=== PATIENT | female | born 1930 | race American Indian/Alaskan Native ===

== ENCOUNTER 2019-06-28 13:35 | Emergency (ER) | payer MEDICARE ==
[~2019-06-28] VITALS: Ht 165.1 cm; Wt 56.2 kg
[2019-06-28] MEDS ORDERED: NORCO 7.5-3251 EACH PO (13:51)
[2019-06-28] MEDS ORDERED: LASIX20 MG PO (13:51)
[2019-06-28] MEDS ORDERED: IRON18 MG PO (13:51)
[2019-06-28] MEDS ORDERED: BUDESONIDE0.5 MG/2 M INH (13:51)
[2019-06-28] MEDS ORDERED: CARVEDILOL6.25 MG PO (13:51)
[2019-06-28] MEDS ORDERED: BROVANA15 MCG/2 M INH (13:51)
[2019-06-28] MEDS ORDERED: MYRBETRIQ25 MG PO (13:52)
[2019-06-28] MEDS ORDERED: PANTOPRAZOLE SO40 MG PO (13:52)
== END 2019-06-28 16:09 | disposition home or self-care (01) ==
LOC: ED 13:35
DX: S09.90XA Unspecified injury of head, initial encounter (principal); S40.012A Contusion of left shoulder, initial encounter; I50.9 Heart failure, unspecified; Z88.2 Allergy status to sulfonamides; Z88.5 Allergy status to narcotic agent; Z79.899 Other long term (current) drug therapy; W18.30XA Fall on same level, unspecified, initial encounter
CPT/HCPCS: 70450; 72125; 73030; 99284-25

== ENCOUNTER 2019-12-19 16:45 | Emergency (ER) | payer MEDICARE, OTHER ==
[~2019-12-19] VITALS: Ht 165.1 cm; Wt 56.2 kg
[~2019-12-19 16:45] MED LIST: BROVANA15 MCG/2 M INH; BUDESONIDE0.5 MG/2 M INH; CARVEDILOL6.25 MG PO; IRON18 MG PO; LASIX20 MG PO; MYRBETRIQ25 MG PO; NORCO 7.5-3251 EACH PO; PANTOPRAZOLE SO40 MG PO
== END 2019-12-19 20:05 | disposition home or self-care (01) ==
LOC: ED 16:45
DX: J44.9 Chronic obstructive pulmonary disease, unspecified (principal); D64.9 Anemia, unspecified; I50.9 Heart failure, unspecified; Z88.2 Allergy status to sulfonamides; Z88.5 Allergy status to narcotic agent; Z79.899 Other long term (current) drug therapy
CPT/HCPCS: 71045; 80053; 81001; 85025; 99285-25

== ENCOUNTER 2019-12-26 12:14 | Emergency (ER) | payer MEDICARE, OTHER ==
[~2019-12-26] VITALS: Ht 165.1 cm; Wt 56.2 kg
== END 2019-12-26 16:10 | disposition home or self-care (01) ==
LOC: ED 12:14
DX: S81.811A Laceration without foreign body, right lower leg, initial encounter (principal); M54.5 Low back pain; D64.9 Anemia, unspecified; J44.9 Chronic obstructive pulmonary disease, unspecified; I50.9 Heart failure, unspecified; Z88.2 Allergy status to sulfonamides; Z79.899 Other long term (current) drug therapy; W18.30XA Fall on same level, unspecified, initial encounter
CPT/HCPCS: 70450; 71045; 80053; 84484; 85025; 90471; 90715; 96360; 96361; 99284-25; J7040

== ENCOUNTER 2020-03-14 14:48 | Emergency (ER) | payer MEDICARE, OTHER ==
[~2020-03-14] VITALS: Ht 165.1 cm; Wt 56.2 kg
--- OUTSIDE RECORDS SUMMARY | ~2020-03-14 | XMS | Encounter Summary ---
Demographics + + + | Address | [address] | | | [place] [address] | + + + | Home Phone | | + + + | Preferred Language | Unknown | + + + | Marital Status | | + + + | Druze Affiliation | Unknown | + + + | Race | Unknown | + + + | Ethnic Group | Unknown | + + + Author + + + | Author | [facility] | | | and [place] | + + + | Organization | [facility] | | | and [place] | + + + | Address | Unknown | + + + | Phone | Unavailable | + + + Support + + +---------+ + | Name | Relationship | Address | Phone | + + +---------+ + | Yadiel Argueta | ECON | Unknown | | + + +---------+ + | Pee Perrin | ECON | Unknown | | + + +---------+ + | Laylajanelle Argueta | ECON | Unknown | | + + +---------+ + Care Team Providers + +------+ + | Care Process Supervisor Name | Role | Phone | + +------+ + | Candido Link | PCP | | | MD | | | + +------+ + Reason for Visit +--------+ + | Reason | Comments | +--------+ + | Forms | | +--------+ + Encounter Details +--------+ + + + + | Date | Type | Department | Care Team | Description | +--------+ + + + + | 07/05/ | Telephone | [facility] | Nikolay, | Forms | | 2019 | | [address] | MD Candido | | | | | [facility] | [address] [place] [address] | | | | | [place] [address] | [place] [address] | | | | | [phone] | [phone] | | | | | | | | +--------+ + + + + Social History + + + +--------+ + | Tobacco Use | Types | Packs/Day | Years | Date | | | | | Used | | + + + +--------+ + | Former Smoker | Cigarettes | | | 1945 - 1968 | + + + +--------+ + + +---+---+---+ | Smokeless Tobacco: | | | | | Never Used | | | | + +---+---+---+ + + +---------+ + | Alcohol Use | Drinks/Week | oz/Week | Comments | + + +---------+ + | Never | | | | + + +---------+ + + + + + | Alcohol Habits | Answer | Date Recorded | + + + + | How often do you have a drink containing | Never | 05/31/2019 | | alcohol? | | | + + + + | How many drinks containing alcohol do you | Not asked | | | have on a typical day when you are | | | | drinking? | | | + + + + | How often do you have six or more drinks on | Not asked | | | one occasion? | | | + + + + + + + | Sex Assigned at | Date Recorded | | | | + + + | Not on file | | + + + + + + + | Job Start Date | Occupation | Industry | + + + + | Not on file | Not on file | Not on file | + + + + + + + + | Travel History | Travel Start | Travel End | + + + + + + | No recent travel history available. | + + documented as of this encounter Plan of Treatment +--------+ + + + + | Date | Type | Specialty | Care Team | Description | +--------+ + + + + | 03/23/ | Office | Anticoagulation | García Harris, | | | 2019 | Visit | | PIPE CHANGER [address] | | | | | | [place] | | | | | | [address] | | | | | | | | +--------+ + + + + | 04/11/ | Appointment | Radiology | Shawn Michael | | | 2019 | | | MD [address] | | | | | | [address] [place] | | | | | | [place] [address] | | | | | | [phone] | | | | | | | | +--------+ + + + + | 04/13/ | Office | Cardiology | Shawn Michael | | 2019 | Visit | | MD [address] | | | | | | [address] [place] | | | | | | [place] [address] | | | | | | [phone] | | | | | | | | +--------+ + + + + documented as of this encounter Visit Diagnoses Not on filedocumented in this encounter Additional Health Concerns + + + + | Infection | Noted Time | Resolved Time | + + + + | Methicillin-resistant Staphylococcus aureus | 06/08/2019 9:39 AM | | | | PDT | | + + + + documented as of this encounter"
--- OUTSIDE RECORDS SUMMARY | ~2020-03-14 | XMS | Encounter Summary ---
Demographics + + + | Address | [address] | | | [place] [address] | + + + | Home Phone | | + + + | Preferred Language | Unknown | + + + | Marital Status | | + + + | Scientologist Affiliation | Unknown | + + + | Race | Unknown | + + + | Ethnic Group | Unknown | + + + Author + + + | Author | [facility] | | | and [place] | + + + | Organization | [facility] | | [...] | | + + +---------+ + | Layla Argueta | ECON | Unknown | | + + +---------+ + Care Team Providers + +------+ + | Care Tank Setter Name | Role | Phone | + +------+ + | Candido Link | PCP | | | MD | | | + +------+ + Reason for Visit Auth/Cert +--------+--------+ + + + + | Status | Reason | Specialty | Diagnoses / | Referred By | Referred To | | | | | Procedures | Contact | Contact | +--------+--------+ + + + + | | | | | | | +--------+--------+ + + + + Encounter Details +--------+ + + + + | Date | Type | Department | Care Team | Description | +--------+ + + + + | 10/19/ | Home Care | [facility] [place] | Raheem Goins T, | PT REPEAT VISIT | | 2020 | Visit | [place] [address] | [facility] DRILL OPERATOR [address] | | | | | [place], [place] | [place] | | | | | [address] | [address] | | | | | [phone] | | | +--------+ + + + [...] + + documented as of this encounter Last Filed Vital Signs + + + + + | Vital Sign | Reading | Time Taken | Comments | + + + + + | Blood Pressure | 122/86 | 10/19/2019 2:45 PM | | | | | PST | | + + + + + | Pulse | 90 | 10/19/2019 2:45 PM | | | | | PST | | + + + + + | Temperature | 36.8 C (98.2 F) | 10/19/2019 2:45 PM | | | | | PST | | + + + + + | Respiratory Rate | - | - | | + + + + + | Oxygen Saturation | 96% | 10/19/2019 2:45 PM | | | | | PST | | + + + + + | Inhaled Oxygen | - | - | | | Concentration | | | | + + + + + | Weight | - | - | | + + + + + | Height | - | - | | + + + + + | Body Mass Index | - | - | | + + + + + documented in this encounter Plan of Treatment +--------+ + + + + | Date | Type | Specialty | Care Team | Description | +--------+ + + + + | 03/23/ | Office | Anticoagulation | García Harris, | | | 2019 | Visit | | [place] | | | | | | [place] | | | | | | [address] | | | | | | | | +--------+ + + + + | 04/11/ | Appointment | Radiology | Shawn Michael | | 2019 | | | MD Marcelino [address] | | | | | | [address] | | | | | | [place] [address] | | | | | | [phone] | | | | | | | | +--------+ + + + + | 04/13/ | Office | Cardiology | Shawn Michael | | | 2020 | Visit | | MD Marcelino [address] | | | | | | [address] | | | | | | [place] [address] | | | | | | [phone] | | | | | | | [...] + + documented as of this encounter Home Health Visit - Care Plan + + | Visit Type - PT - REPEAT VISIT | | Discipline - Physical Therapy | + + + + +--------+--------+ + + | Problem | Description | Start | Status | Goals | Interventio | | | | Date | | | ns | + + +--------+--------+ + + | HH PT IMPAIRED | Impaired gait | | | 1 goal | 1 goal | | GAIT Disciplines: | | 08/31/ | Active | linked to | interventio | | Physical Therapy | | 2019 | | scheduled/d | n | | | | | | ocumented | scheduled/d | | | | | | interventio | ocumented | | | | | | n | in this | | | | | | | visit | + + +--------+--------+ + + | HH PT IMPAIRED | Impaired transfers | | | 1 goal | 1 goal | | TRANSFERS | | 08/31/ | Active | linked to | interventio | | Disciplines: | | 2019 | | scheduled/d | n | | Physical Therapy | | | | ocumented | scheduled/d | | | | | | interventio | ocumented | | | | | | n | in this | | | | | | | visit | + + +--------+--------+ + + | HH PULSE OXIMETRY | Oximetry | | | 1 goal | 1 goal | | Disciplines: | | 08/31/ | Active | linked to | interventio | | Physical Therapy | | 2019 | | scheduled/d | n | | | | | | ocumented | scheduled/d | | | | | | interventio | ocumented | | | | | | n | in this | | | | | | | visit | + + +--------+--------+ + + | HH SHARED FALLS | Falls | | | 1 goal | 1 goal | | Disciplines: | | 08/31/ | Active | linked to | interventio | | Physical Therapy | | 2019 | | scheduled/d | n | | | | | | ocumented | scheduled/d | | | | | | interventio | ocumented | | | | | | n | in this | | | | | | | visit | + + +--------+--------+ + + + + +--------+-------+ + | Goal | Associated Problem | Outcom | Goal | Visit Notes | | | | e | Met? | | + + +--------+-------+ + | HH PT GAIT/STAIRS | HH PT IMPAIRED | | No | | | Description: The | GAIT | Ongoin | | | | patient will | | g, | | | | ambulate 500+ feet | | progre | | | | using 4-wheeled | | ssing | | | | walker with | | | | | | supervision. | | | | | | OUTCOMES: The | | | | | | patient will be able | | | | | | to safely ambulate | | | | | | to/from community | | | | | | appointments. | | | | | + + +--------+-------+ + | HH PT TRANSFERS | HH PT IMPAIRED | | No | | | Description: The | TRANSFERS | Ongoin | | | | patient will perform | | g, | | | | independent | | progre | | | | transfers for all | | ssing | | | | household surfaces | | | | | | using rolling | | | | | | walker.. Outcomes: | | | | | | The patient will | | | | | | reach maximal | | | | | | independence and | | | | | | safety with | | | | | | transfers to/from | | | | | | the all necessary | | | | | | household surfaces. | | | | | + + +--------+-------+ + | Pulse oximetry | HH PULSE OXIMETRY | | No | | | parameters | | | | | | Description: | | | | | | Notify MD if oxygen | | | | | | saturation is less | | | | | | than 90%. | | | | | + + +--------+-------+ + | HH FALL PREVENTION | HH SHARED FALLS | | No | | | UNDERSTANDING | | Ongoin | | | | Description: The | | g, | | | | patient and/or | | progre | | | | caregiver will | | ssing | | | | verbalize | | | | | | understanding of | | | | | | fall prevention | | | | | | strategies. | | | | | + + +--------+-------+ + + + +--------+--------+ + | Intervention | Associated | Status | Varian | Visit Notes | | | Problem/Goal | | ce | | + + +--------+--------+ + | Pt gait training | Problem: HH PT | | | Therapist educated pt | | Description: | IMPAIRED GAITGoal: | Comple | | on appropriate AD use | | Evaluate and | HH PT GAIT/STAIRS | yoel | | given noted deficits and | | instruct patient | | | | impairments. Instructed | | and/or caregiver in | | | | pt with use of 4WW for | | gait training using | | | | 200 feet on even | | 4-wheeled walker no | | | | surfaces inside of home, | | weight bearing | | | | completed task with | | restrictions. | | | | supervision. Therapist | | | | | | gave VC for improved | | | | | | postural mechanics and | | | | | | normalized loading | | | | | | mechanics through ankles | | | | | | and hips. | + + +--------+--------+ + | PT transfer | Problem: HH PT | | | Patient instructed in | | training | IMPAIRED | Comple | | sit<>stand transfers | | Description: | TRANSFERSGoal: HH PT | yoel | | from upright recliner | | Evaluate and | TRANSFERS | | | using bilateral UE for | | instruct patient | | | | increased leverage. | | and/or caregiver in | | | | Verbal cueing provided | | safe transfers using | | | | for proper set up and | | appropriate body | | | | technique including | | mechanics and | | | | scooting forward on | | necessary equipment. | | | | surface, foot placement | | | | | | slightly behind knees, | | | | | | atleast one hand on | | | | | | surface for safety and | | | | | | improved leverage as | | | | | | well as anterior weight | | | | | | shifting of trunk for | | | | | | improved mechanics and | | | | | | avoiding retropulsion | | | | | | upon standing. When | | | | | | sitting patient also | | | | | | cued to keep AD close | | | | | | and not to sit until pt. | | | | | | feels surface on back | | | | | | of legs. Patient | | | | | | performed tranfers with | | | | | | increased effort, | | | | | | modified independence. | + + +--------+--------+ + | HH PULSE OXIMETRY | Problem: HH PULSE | | | 02 saturations | | Description: | OXIMETRYGoal: Pulse | Comple | | maintained above 92% | | Assess oxygen | oximetry parameters | yoel | | throughout session. 2 | | saturation via pulse | | | | min walk test. | | oximetry: Frequency | | | | | | PRN, Reason SOB. | | | | | | Notify physician if | | | | | | saturation level is | | | | | | less than 90%. | | | | | + + +--------+--------+ + | Instruct in Fall | Problem: HH SHARED | | | PT educated pt on | | Prevention | FALLSGoal: HH FALL | Comple | | general fall prevention | | Description: | PREVENTION | yoel | | measures including: | | Instruct the patient | UNDERSTANDING | | | taking extra time after | | and/or caregiver in | | | | changes in position to | | fall prevention | | | | ensure no | | strategies. | | | | lightheadedness, | | | | | | adequate lighting at | | | | | | night for tolieting and | | | | | | transfers, consistent | | | | | | and appropriate AD use, | | | | | | use of appropriate | | | | | | footwear, requesting A | | | | | | as needed, and general | | | | | | environmental changes to | | | | | | clear pathways, remove | | | | | | throw rugs and keep | | | | | | obstacles out of | | | | | | walkways. | + + +--------+--------+ + documented in this encounter"
--- OUTSIDE RECORDS SUMMARY | ~2020-03-14 | XMS | Encounter Summary ---
Demographics + + + | Address | [address] | | | [place] [address] | + + + | Home Phone | | + + + | Preferred Language | Unknown | + + + | Marital Status | | + + + | Denominational Affiliation | Unknown | + + + | Race | Unknown | + + + | Ethnic Group | Unknown | + + + Author + + + | Author | [facility] | | | and [place] | + + + | Organization | [facility] | | | and [...] Team Providers + +------+ + | Care Retail Advertising Executive Name | Role | Phone | + +------+ + | Candido Link | PCP | | | MD | | | + +------+ + Encounter Details +--------+ + + + + | Date | Type | Department | Care Team | Description | +--------+ + + + + | 09/07/ | Imaging | [facility] | Provider, | | | 2019 | Exam | [facility] | MD Alfredo [address] | | | | | [address] | [address] | | | | | [address] | [place] [address] | | | | | [place] [address] | | | | | | [phone] | | | +--------+ + + + + Social History + +-------+ +--------+------+ | Tobacco Use | Types | Packs/Day | Years | Date | | | | | Used | | + +-------+ +--------+------+ | Never Assessed | | | | | + +-------+ +--------+------+ + + + | Sex Assigned at [...] | | 2019 | Visit | | FABRICATION TECHNICIAN [address] | | | | | | [place] | | | | | | [address] | | | | | | | | +--------+ + + + + | 04/11/ | Appointment | Radiology | Shawn Michael | | | 2019 | | | MD [address] | | | | | | [address] [place] | | | | | | [place] [address] | | | | | | [phone] | | | | | | | | +--------+ + + + + | 04/13/ | Office | Cardiology | Shawn Michael | | | 2019 | Visit | | MD [address] | | | | | | [address] [place] | | | | | | [place] [address] | | | | | | [phone] | | | | | | | | +--------+ + + + + documented as of this encounter Procedures + +--------+ + + + | Procedure Name | Priori | Date/Time | Associated Diagnosis | Comments | | | ty | | | | + +--------+ + + + | CT ANGIOGRAM CHEST | Routin | 02/08/2019 | | Results for this | | ABDOMEN PELVIS | e | 3:20 PM | | procedure are in the | | | | PDT | | results section. | + +--------+ + + + documented in this encounter Results CT Angiogram Chest Abdomen Pelvis w Contrast (02/08/2019 3:20 PM PDT) + + | Specimen | + + | | + + + + + | Narrative | Performed At | + + + | External films for comparison only | [facility] | | | | | No results will be in the chart. | | + + + + +---------+ + + | Performing | Address | City/State/Zipcode | Phone Number | | Organization | | | | + +---------+ + + | [facility] | | | | + +---------+ + + documented in this encounter Visit Diagnoses Not on filedocumented in this encounter Additional Health Concerns + + + + | Infection | Noted Time | Resolved Time | + + + + | Methicillin-resistant Staphylococcus aureus | 06/08/2019 9:39 AM | | | | PDT | | + + + + documented as of this encounter"
--- OUTSIDE RECORDS SUMMARY | ~2020-03-14 | XMS | Encounter Summary ---
Demographics + + + | Address | [address] | | | [place] [address] | + + + | Home Phone | | + + + | Preferred Language | Unknown | + + + | Marital Status | | + + + | Religion Affiliation | Unknown | + + + | Race | Unknown | + + + | Ethnic Group | Unknown | + + + Author + + + | Author | [facility] | | | and [place] | + + + | Organization | [facility] | | | and [...] Team Providers + +------+ + | Care Taper Machine Name | Role | Phone | + +------+ + | Candido Link | PCP | | | MD | | | + +------+ + Reason for Visit + + + | Reason | Comments | + + + | Medication Refill | | + + + Encounter Details +--------+--------+ + + + | Date | Type | Department | Care Team | Description | +--------+--------+ + + + | 10/08/ | Refill | [facility] [place] [facility] | Nikolay, | Medication Refill | | 2019 | | MEDICINE [address] | MD Candido | | | | | [facility] | [address] [place] [address] | | | | | [place] [address] | [place] [address] | | | | | [phone] | [phone] | | | | | | | | +--------+--------+ + + + Social History + + [...] | | 2019 | Visit | | PUBLIC OPINION SURVEY TAKER [address] | | | | | | [place] | | | | | | [address] | | | | | | | | +--------+ + + + + | 04/11/ | Appointment | Radiology | Shawn Michael | | | 2019 | | | MD [address] | | | | | | [address] [place] | | | | | | [place] [address] | | | | | | [phone] | | | | | | | | +--------+ + + + + | 04/13/ | Office | Cardiology | Shawn Michael | | | 2019 | Visit | | MD [address] | | | | | | [address] [place] | | | | | | [place] [address] | | | | | | [phone] | | | | | | | [...]
--- OUTSIDE RECORDS SUMMARY | ~2020-03-14 | XMS | Encounter Summary ---
Demographics + + + | Address | [address] | | | [place] [address] | + + + | Home Phone | | + + + | Preferred Language | Unknown | + + + | Marital Status | | + + + | Jewish Affiliation | Unknown | + + + | Race | Unknown | + + + | Ethnic Group | Unknown | + + + Author + + + | Author | [facility] | | | and [place] | + + + | Organization | [facility] | | [...] Team Providers + +------+ + | Care Enterprise Resource Planner Name | Role | Phone | + [...] | +--------+ + + + + | 11/30/ | Home Care | [facility] [place] | Wanda Barbosa, | CASE COMMUNICATION | | 2020 | Visit | [place] [address] | [place] | | | | | [address] [place] | | | | | | [address] | | | | | | [phone] | | | +--------+ + + + [...] [place] | | | | | | [address] | | | | | | | | +--------+ + + + + | 04/11/ | Appointment | Radiology | Shawn Michael | | | 2019 | | | MD Marcelino [address] | | | | | | [address] | | | | | | [place] [address] | | | | | | [phone] | | | | | | | | +--------+ + + + + | 04/13/ | Office | Cardiology | Shawn Michael | | | 2019 | Visit | | MD Marcelino [address] | | | | | | [address] | | | | | | [place] [address] | | | | | | [phone] | | | | | | | [...] PDT | | + + + + | Influenza - flu | 11/18/2019 2:02 AM | 12/02/2019 11:56 AM | | | PST | UTC | + + + + documented as of this encounter"
--- OUTSIDE RECORDS SUMMARY | ~2020-03-14 | XMS | Encounter Summary ---
Demographics + + + | Address | [address] | | | [place] [address] | + + + | Home Phone | | + + + | Preferred Language | Unknown | + + + | Marital Status | | + + + | Sikh Affiliation | Unknown | + + + | Race | Unknown | + + + | Ethnic Group | Unknown | + + + Author + + + | Author | [facility] | | | and [place] | + + + | Organization | [facility] | | | and [...] Providers + +------+ + | Care Retail Service Specialist Name | Role | Phone | + +------+ + | Candido Link | PCP | | | MD | | | + +------+ + Reason for Referral Evaluate & Treat (Routine) + + + + + + + | Status | Reason | Specialty | Diagnoses / | Referred By | Referred To | | | | | Procedures | Contact | Contact | + + + + + + + | Authorized | Specialty | Gastroenterol | Diagnoses | Dimas, | Sydney, | | | Services | ogchase | Dysphagia, | Bruce Coe MD | John Mora, | | | Required | | unspecified | [address] | | | | | type | [address] | [address] | | | | | Procedures | [place], [place] | | | | | [employer]AT[employer] OFFICE | [place] [address] | [place] [address] | | | | | VISIT | Phone: | Phone: | | | | | | [phone] | [phone] | | | | | | Fax: | Fax: | | | | | | [phone] | [phone] | + + + + + + + Home Health Care (Routine) +--------+ + + + + + | Status | Reason | Specialty | Diagnoses / | Referred By | Referred To | | | | | Procedures | Contact | Contact | +--------+ + + + + + | Closed | Specialty | Home Health | Diagnoses | Kalen, | Prov Hh | | | Services | Services | Acute | Chace | King | | | Required | | respiratory | MD Pati | [address] | | | | | failure with | [address] | [address] [place] | | | | | hypoxia | [place] | [place] | | | | | (HCC) | [facility], [place] | [address] | | | | | Pressure | [address] | Phone: | | | | | injury of | Phone: | [phone] | | | | | deep tissue | [phone] | Fax: | | | | | of sacral | Fax: | [phone] | | | | | region | [phone] | | | | | | Acute | | | | | | | metabolic | | | | | | | encephalopat | | | | | | | hy Acute on | | | | | | | chronic | | | | | | | 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 | | | | | | | diastolic | | | | | | | heart | | | | | | | failure | | | | | | | (HCC) | | | | | | | Chronic | | | | | | | obstructive | | | | | | | pulmonary | | | | | | | disease, | | | | | | | unspecified | | | | | | | COPD type | | | | | | | (HCC) | | | | | | | Moderate | | | | | | | protein-bang | | | | | | | julieta | | | | | | | malnutrition | | | | | | | (HCC) | | | | | | | Impaired | | | | | | | mobility | | | +--------+ + + + + + Reason for Visit + + + | Reason | Comments | + + + | Shortness of Breath | | + + + | Skin Ulcer | | + + + Auth/Cert +--------+--------+ + + + + | Status | Reason | Specialty | Diagnoses / | Referred By | Referred To | | | | | Procedures | Contact | Contact | +--------+--------+ + + + + | | | | Diagnoses | | | | | | | Acute | | | | | | | systolic | | | | | | | congestive | | | | | | | heart | | | | | | | failure | | | | | | | ([facility]) | | | | | | | Vomiting, | | | | | | | persistent, | | | | | | | in adult | | | | | | | Acute | | | | | | | respiratory | | | | | | | failure with | | | | | | | hypoxia | | | | | | | ([facility]) | | | | | | | Elevated | | | | | | | troponin I | | | | | | | level | | | | | | | Pressure | | | | | | | injury of | | | | | | | deep tissue | | | | | | | of sacral | | | | | | | region | | | | | | | | | | +--------+--------+ + + + + Encounter Details +--------+ + + + + | Date | Type | Department | Care Team | Description | +--------+ + + + + | 01/30/ | Hospital | [facility] | Raymon Daniel, | Acute respiratory | | 2019 - | Encounter | [facility] | [address] | failure with hypoxia | | | | [address] [place] | [place] PATEL | ([facility]) (Primary Dx); | | 02/08/ | | [place] [id number] | [id number] | Acute systolic | | 2020 | | [phone] | | congestive heart | | | | | Aida Mills MD | failure (HCC); | | | | | [address] | Elevated troponin I | | | | | [place] | level; Pressure | | | | | [address] | injury of deep | | | | | | tissue of sacral | | | | | | region; Vomiting, | | | | | | persistent, in | | | | | | adult; Acute | | | | | | metabolic | | | | | | encephalopathy; | | | | | | Gastroenteritis; | | | | | | Anxiety; Severe | | | | | | protein-calorie | | | | | | malnutrition (HCC); | | | | | | Goals of care, | | | | | | counseling/discussio | | | | | | n; Palliative care | | | | | | by specialist; Acute | | | | | | 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 | | | | | | failure (HCC); | | | | | | Chronic obstructive | | | | | | pulmonary disease, | | | | | | unspecified COPD | | | | | | type (HCC); Moderate | | | | | | protein-calorie | | | | | | malnutrition (HCC); | | | | | | Impaired mobility; | | | | | | Low back pain, | | | | | | unspecified back | | | | | | pain laterality, | | | | | | unspecified | | | | | | chronicity, | | | | | | unspecified whether | | | | | | sciatica present; | | | | | | Muscular | | | | | | deconditioning; | | | | | | Dysphagia, | | | | | | unspecified type; | | | | | | Generalized | | | | | | osteoarthritis; Long | | | | | | term prescription | | | | | | opiate use | +--------+ + + + + Social [...] + + + | Blood Pressure | 139/63 | 02/09/2020 9:20 AM | | | | | PDT | | + + + + + | Pulse | 108 | 02/09/2020 9:20 AM | | | | | PDT | | + + + + + | Temperature | 37.4 C (99.3 F) | 02/09/2020 7:04 AM | | | | | PDT | | + + + + + | Respiratory Rate | 22 | 02/09/2020 7:04 AM | | | | | PDT | | + + + + + | Oxygen Saturation | 98% | 02/09/2020 7:04 AM | | | | | PDT | | + + + + + | Inhaled Oxygen | - | - | | | Concentration | | | | + + + + + | Weight | 51.6 kg (113 lb 12.1 | 02/09/2020 3:24 AM | | | | oz) | PDT | | + + + + + | Height | 167.6 cm (5' 6") | 01/31/2020 8:38 AM | | | | | PDT | | + + + + + | Body Mass Index | 18.36 | 01/31/2020 8:38 AM | | | | | PDT | | + + + + + documented in this encounter Discharge Summaries Bruce Cochran MD - 02/09/2020 10:41 AM PDTFormatting of this note might be different fro m the original. [facility] [place] HOSPITALIST DISCHARGE SUMMARY Pt. Name/Age/: Ángela Crowley 89 y.o. 1930 Date of Admission: 01/31/2020 Date of Discharge: 02/09/2020 Admitting Physician: Aida Mills MD Primary Care Provider: Candido Link MD Discharging Physician: Bruce Cochran MD DISCHARGE DIAGNOSES: Active Hospital Problems Diagnosis Acute metabolic encephalopathy Pressure injury of deep tissue of sacral region Acute systolic congestive heart failure Acute respiratory failure with hypoxia Gastroenteritis Resolved Hospital Problems No resolved problems to display. DISCHARGE MEDICATIONS: Dot MEDDISCHARGE Discharge Medications New Medications Details lactobacillus GG capsule Take 1 capsule by mouth 2 times daily. As probiotic (or use some similar OTC probiotic) fo r 10 days sulfamethoxazole-trimethoprim 800-160 mg per tablet Take 1 tablet by mouth 2 times daily for 7 days. Indications: Non-Purulent Skin and Soft T issue Infection aka: BACTRIM DS Changed Medications Details docusate sodium 250 MG capsule Take 1 capsule by mouth Twice daily as needed for Constipation. Hold for loose stools What changed: how much to take when to take this reasons to take this aka: COLACE escitalopram 10 mg tablet Take 1.5 tablets by mouth Daily for 90 days. What changed: medication strength What Changed: Instructions aka: LEXAPRO Unchanged Medications Details acetaminophen 500 mg tablet Take 500 mg by mouth every 6 hours as needed for Pain. aka: TYLENOL albuterol 2.5 mg/3 mL nebulizer solution Take 3 mLs by nebulization every 4 hours as needed for Wheezing or Shortness of Breath. In perez 1-2 treatments in nebulizer every 20 minutes for 3 doses, then 1-4 treatments every 1-4 hours as needed arformoterol 15 MCG/2ML Nebu Notes to patient: To help prevent breathing problems Take 2 mLs by nebulization Twice Daily. Length: Lifetime, Dx: J44.9 aka: BROVANA aspirin 81 mg chewable tablet Notes to patient: For heart health Take 1 tablet by mouth Daily. atorvaSTATin 20 mg tablet Notes to patient: For cholesterol TAKE 1 TABLET BY MOUTH ONCE DAILY IN THE MORNING aka: LIPITOR bacitracin 500 UNIT/GM ointment Apply 1 Application topically 3 times daily. to bedsore on buttocks brimonidine 0.2% ophthalmic solution Notes to patient: For glaucoma Place 1 drop into both eyes 2 times daily. aka: ALPHAGAN budesonide 0.5 mg/2 mL nebulizer solution Notes to patient: To help prevent breathing problems Rinse mouth out after each use to help prevent thrush! Take 2 mLs by nebulization 2 times daily. Dx Code J44.90 aka: PULMICORT calcium (as carbonate) 600 mg tablet Notes to patient: For heartburn Take 600 mg by mouth daily (with breakfast). aka: CALTRATE carvedilol 6.25 mg tablet Notes to patient: For heart and blood pressure Take 6.25 mg by mouth 2 times daily (with breakfast & dinner). aka: COREG cetirizine 10 mg tablet Notes to patient: For allergies Take 1 tablet by mouth once daily aka: zyrTEC cholecalciferol 25 mcg (1,000 units) tablet Notes to patient: For bone health Take 1,000 Units by mouth Daily. aka: VITAMIN D-3 Cranberry 600 MG Tabs Notes to patient: To help prevent urinary tract infections Take 1 tablet by mouth Daily. dicyclomine 10 mg capsule Take 1 capsule by mouth Daily as needed for Other (As needed for abdominal cramps). aka: BENTYL dorzolamide 2% ophthalmic solution Notes to patient: For glaucoma Place 1 drop into both eyes 2 times daily. aka: TRUSOPT famotidine 40 MG tablet Notes to patient: To help prevent heartburn Take 1 tablet by mouth nightly. aka: PEPCID ferrous sulfate 325 mg tablet Notes to patient: For iron Take 1 tablet by mouth daily (with breakfast). fluticasone 50 mcg/nasal spray 1 spray by Nasal route Daily as needed for Allergies. aka: FLONASE furosemide 20 mg tablet Notes to patient: For heart and blood pressure Take 1 tablet by mouth 2 times daily. aka: LASIX HYDROcodone-acetaminophen 7.5-325 mg per tablet Take 1 tablet by mouth every 6 hours as needed for Pain. aka: NORCO ketoconazole 2% cream Notes to patient: For fungal infection of skin Apply topically 2 times daily. aka: NIZORAL latanoprost 0.005% ophthalmic solution Notes to patient: For glaucoma Place 1 drop into both eyes nightly. aka: XALATAN MIRALAX 17 g packet Generic drug: polyethylene glycol Take 17 g by mouth Daily as needed for Constipation. nitroglycerin 0.4 mg SL tablet Notes to patient: Can take up to 3 times, five minutes apart. Call 911 after second dose! Bottle expires 6 months after opened, or printed expiration date, whichever occurs first. If you take out tablets to put them in something else, they are only good for 2-[address] 0.4 mg under the tongue every 5 minutes as needed for Chest pain. aka: NITROSTAT ondansetron 4 mg disintegrating tablet Take 1 tablet by mouth every 6 hours as needed for Nausea. aka: ZOFRAN ODT oxygen Inhale 3 L into the lungs continuous. ALETHEA: 99 months. pantoprazole 40 mg tablet Notes to patient: To help prevent heartburn and stomach ulcers Take 1 tablet by mouth every morning (before breakfast). aka: PROTONIX polyvinyl alcohol 1.4% ophthalmic solution Notes to patient: For dry eyes Place 2 drops into both eyes every morning. aka: LIQUITEARS predniSONE 10 mg tablet Take 1 tablet by mouth Daily. aka: DELTASONE PRESERVISION AREDS 2 Caps Notes to patient: For eye health Take 1 capsule by mouth 2 times daily. MULTIVITAMIN GUMMIES ADULT PO Notes to patient: For general health Take 1 gummy by mouth daily prochlorperazine 10 mg tablet Notes to patient: For nausea or vomiting Take 1 tablet by mouth every 8 hours as needed. Respiratory Therapy Supplies Misc Replacement O2 mask. Please evaluate and provide an O2 mask that is more useful to the pat ient. 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 aka: SENOKOT sodium chloride 0.65% nasal spray 2 sprays by Each Nare route. two to three times daily as needed for nasal dryness aka: OCEAN TUMS 500 mg chewable tablet Generic drug: calcium carbonate Chew and swallow 2 tablets Twice daily as needed for Heartburn or Indigestion. UNABLE TO FIND Powder free dispoable gloves, size large vitamin C 1000 MG tablet Notes to patient: To supplement nutritional Vitamin C Take 1,000 mg by mouth Daily. Discontinued Medications metoprolol succinate 25 mg 24 hr tablet aka: TOPROL-XL Alternative Med Lists (all with hard stops if not reconciled) 1 Dot DCMEDSSUMMARY (for discharge summary) 2 Dot DCMEDSDCRA (signed & held med orders with a discharge readmit phase of care) 3 Dot DCMEDSSNF (intended for SNF transfers) 4 Dot DCMEDSWITHREADMIT (preferred for all discharge summaries as it includes 1 & 2 above u sing 1 for most discharges but 2 when there is and order for discharge readmit) HOSPITAL COURSE: Please also refer to the Admission note for full details and the most recent rounding round ing (progress) note. The information in this box was copied from previous Hospitalist note 02/09/2020 10:41 AM #Acute metabolic encephalopathy, stable Unclear etiology, possible medication induced, infectious, CHF history, per notes is baseli ne lucid and oriented. On 01/31 patient is Alert but oriented x1 not to place or time. Passed FRONT OFFICE REPRESENTATIVE evaluation with dysphagia diet ordered on 01/31 COVID 19 test negative on 01/30 CT head/chest/abd/pelvis identified small right pleural effusion with possible infection pr esent that can be possible pneumonia. No clear signs of acute abdominal infection. No acute intracranial abnormalities 02/06: mental status slowly improved, can feed self up to chair, pain improved/ 1U PRBC trans fused 02/07: improved mental status, feeding self. Improved leukocytosis, improved Hgb -norco PRN for pain -delirium precautions -Increased lexapro up to 15mg this visit. -treating infectious causes, likely 2/2 cellulitis 2/2 sacral decubitus ulcer, continue PO abx as below #Sepsis 2/2 Sacral Decubitous, Stage 3, suspected infection #Leukocytosis 2/2 sepsis 2/2 chronic steroid Initial differentials on admission included gastroenteritis, pneumonia, UTI, and cellulitis of sacral decub. Repeat CXR no sign of pneumonia (with no cough or SOB), UCx grew yeast of undetermined significance, and Cdiff and stool pathogens negative. Source of sepsis likely 2 /2 cellulitis surrounding sacral decub ulcer. Wound cultures grew MRSA. Has received initial ly levaquin switched to vanc unasyn then switched to bactrim on 02/05. Afebrile since admissio n. -Continue wound care -Continue bactrim (started 02/05) -trend CBC -supportive care, zofran PRN #Hx of COPD, not in acute exacerbation Home O2 is 2-3L NC currently on home O2 on evaluation. Has history of prior MRSA PNA. 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 troponins stable, no chest pain during admission. 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 Repeat BNP 02/01 635 Changed lasix 20IV BID to 20 PO BID on 02/01, clinically euvolemic, lasix 20mg PO BID is mayela e dose, on 02/05 changed to lasix 20mg PO Daily, back to lasix 20mg PO BID on 02/06 -Continue lasix 20mg PO BID -Continue coreg -Continue aspirin/statin -Trend I/Os, daily weights #Anemia, iron deficiency Iron Low, no sign of bleeding, likely chronic. On ferrous sulfate BID. Given 1U PRBC 02/06 wi th improvement to hgb 9.1. will monitor #Esophageal dysphagia #New diagnosis of achalasia Found to have significant dysphagia on FRONT OFFICE REPRESENTATIVE evaluation. Will require upper GI workup per FRONT OFFICE REPRESENTATIVE . Recommend reflux precautions and puree diet. Will d/w GI for possible EGD and esophagram f or motility. EGD was last done 08/2019 with no evidence of cause of dysphagia. Given previou s evaluation, the patient could benefit from manometry outpatient and would not benefit from repeat EGD at this time. Recommended esophagram while inpatient. 02/02 Esophagram shows lower esophageal sphincter spasm likely related to achalasia. D/w Dr. Sydney PEREZ and next step would be to perform manometry as outpatient for confirmation of bhavani lasia and to approach treatment as outpatient. -Continue dysphagia diet -f/u outpatient #malnutrition I attest that this clinical assessment using ASPEN criteria 1 is accurate for this patient and supports that as a medical diagnosis. A specific nutrition treatment plan will be impl emented as outlined in the registered dietitian's plan of care. Nutrition Diagnosis: Severe protein-calorie malnutrition Type, Severe: Chronic illness Weight Loss: Greater than 7.5% in 3 months (8% unintended weight loss, BMI 17.95) Energy Intake: Less than or equal to 50% of estimated energy intake compared to needs in gr eater than or equal to 5 days (eating 10-45% of dysphagia diet since admit) Body Fat: Moderate depletion Muscle Mass: Severe depletion #Bilateral arm swelling Likely 2/2 fluid overload, left US forearm revealed No DVT #FAITH, resolved #Hypernatremia, resolved DVT PPx: SCDs, held AC for anemia GI PPx: pepcid Diet: puree diet, 1800ml fluid restriction, Na 2gm Dispo: continue PT/OT. Will plan for home with home health with PT, Nurse aide, wheelchair, FWW, and wound care for sacral decub, plan for DC on 02/08 if able Goals of care: Palliative care consulted, appreciate recs. No hospice as per son. Continue full care. 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 Specialty: Internal Medicine Why: This is your hospital follow up appointment, scheduled for 2:45 , Please check in at 2:30. Contact information: [address] [place], [place] [address]a [facility] [id number] Patient being discharged to HOME Home Health ordered or restarted (Yes or No) Yes Patient condition at discharge improved PDMP (DIGITAL MARKETING OFFICER) reviewed Addendum (02/09/2020 3:54 PM) Son said no [place] nor Prednisone nor Citalopram so I printed those three and RN to Fax to sameer shaw Greater than 30 minutes were spent on discharge and coordination of post-hospital care. (dot meyshort) (dot meyopioid) When prescribing opiates consider adding to discharge instructions: "Opioid medicines, understanding the risks and side effects" "Opioid medicines, taking" Electronically signed by: Bruce Cochran MD, 02/09/2020 11:03 AM [facility] Reference. This is NOT part of the patient's formal assessment section. In the assessment or plan section of notes the author may date some of the subsections with a number such as "" or "" to indicate the date of that entry or event. In the example below the 1st line is the original entry and the subsequent lines indicate flowing updates to the subsection: Example assessment subsection (such as CHF or CP or Pneumonia) Patient is improved today with resolution of symptoms th Worse with recurrence of symptoms requiring further testing Portions of this chart may have been created with [employer] voice recognition software. Occasi onal wrong-word or sound-alike substitutions may have occurred due to the inherent oewn itations of voice recognition software. Please read the chart carefully and recognize, using context, where these substitutions have occurred documented in this en counter Discharge Instructions Instructions Bruce Cochran MD - 01/31/2020[facility] restarted Low salt in diet Probiotics Patient Discharge Information Sheet Probiotics are often thought of as "friendly bacteria" or "healthy bacteria." They are sim ilar to the bacteria that normally live inside of our body and play a role in helping to vi p the body working well. If you have been receiving antibiotics in the hospital, consider taking some form of a prob iotic once you are discharged. A reasonable approach is to take some form of probiotics for 5 days after antibiotics are completed. We have included some options below that may be more affordable and contain the types of ba cteria that have been found helpful in studies. If you have any concerns or questions about probiotics, or have a severe problem with your immune system, please discuss with your doctor. Recommended probiotic formulations commonly available in Pharmacies: ? VSL # 3: 1 capsule by mouth twice a day ? Culturelle: 1 capsule by mouth twice a day ? Provella: 1 capsule by mouth twice a day Dairy Product Options with Probiotics: ? Carol's Kefir (many flavors available): 8 ounces per day ? Carol's Organic Yogurt (many flavors available): 8 ounces per day ? [place] Fresh Yogurt (many flavors available): 6 ounces per day documented in this encounter Medications at Time of Discharge + + + +---------+ + + | Medication | Sig | Dispensed | Refills | Start | End Date | | | | | | Date | | + + + +---------+ + + | acetaminophen | Take 500 mg by mouth | | 0 | | | | (TYLENOL) 500 mg | every 6 hours as | | | | | | tablet | needed for Pain. | | | | | + + + +---------+ + + | albuterol 2.5 mg/3 | Take 3 mLs by | 60 vial | 0 | 12/09/ | | | mL nebulizer | nebulization every 4 | | | 20 | | | solution | hours as needed for | | | | | | | Wheezing or | | | | | | | Shortness of Breath. | | | | | | | Inhale 1-2 | | | | | | | treatments in | | | | | | | nebulizer every 20 | | | | | | | minutes for 3 doses, | | | | | | | then 1-4 treatments | | | | | | | every 1-4 hours as | | | | | | | needed | | | | | + + + +---------+ + + | arformoterol | Take 2 mLs by | 120 mL | 3 | 01/02/ | | | (BROVANA) 15 MCG/2ML | nebulization Twice | | | 20 | | | NEBUIndications: | Daily. Length: | | | | | | Chronic obstructive | Lifetime, Dx: J44.9 | | | | | | pulmonary disease, | | | | | | | unspecified COPD | | | | | | | type (HCC) | | | | | | + + + +---------+ + + | ascorbic acid | Take 500 mg by mouth | | 0 | | | | (VITAMIN C) 500 mg | Daily. | | | | | | tablet | | | | | | + + + +---------+ + + | aspirin 81 mg | Take 1 tablet by | 30 | 3 | 06/16/20 | | | chewable tablet | mouth Daily. | tablet | | 19 | | + + + +---------+ + + | atorvaSTATin | TAKE 1 TABLET BY | 90 | 0 | 12/27/19 | | | (LIPITOR) 20 mg | MOUTH ONCE DAILY IN | tablet | | 20 | | | tablet | THE MORNING | | | | | + + + +---------+ + + | brimonidine | Place 1 drop into | | 12 | 05/24/20 | | | (ALPHAGAN) 0.2% | both eyes 2 times | | | 19 | | | ophthalmic solution | daily. | | | | | + + + +---------+ + + | budesonide | Take 2 mLs by | 180 mL | 5 | 01/26/20 | | | (PULMICORT) 0.5 mg/2 | nebulization 2 times | | | 20 | | | mL nebulizer | daily. Dx Code | | | | | | solution | J44.90 | | | | | + + + +---------+ + + | calcium carbonate | Chew and swallow 2 | | 0 | | | | (TUMS) 500 mg | tablets Twice daily | | | | | | chewable tablet | as needed for | | | | | | | Heartburn or | | | | | | | Indigestion. | | | | | + + + +---------+ + + | calcium, as | Take 600 mg by mouth | | 0 | | | | carbonate, | daily (with | | | | | | (CALTRATE) 600 mg | breakfast). | | | | | | tablet | | | | | | + + + +---------+ + + | cetirizine | Take 1 tablet by | 30 | 1 | 01/13/20 | | | (ZYRTEC) 10 mg | mouth once daily | tablet | | 20 | | | tablet | | | | | | + + + +---------+ + + | cholecalciferol | Take 1,000 Units by | | 0 | | | | (VITAMIN D-3) 25 mcg | mouth Daily. | | | | | | (1,000 units) | | | | | | | tablet | | | | | | + + + +---------+ + + | collagenase | Apply to the area of | | 0 | 02/24/20 | | | (SANTYL) ointment | tissue necrosis | | | 20 | | | | around the wound | | | | | | | daily with wound | | | | | | | care | | | | | + + + +---------+ + + | Cranberry 600 MG | Take 1 tablet by | | 0 | | | | TABS | mouth Daily. | | | | | + + + +---------+ + + | dicyclomine | Take 1 capsule by | 30 | 0 | 09/08/20 | | | (BENTYL) 10 mg | mouth Daily as | capsule | | 19 | | | capsule | needed for Other (As | | | | | | | needed for | | | | | | | abdominal cramps). | | | | | + + + +---------+ + + | docusate sodium | Take 1 capsule by | 60 | 5 | 02/09/20 | | | (COLACE) 250 MG | mouth Twice daily | capsule | | 20 | | | capsule | as needed for | | | | | | | Constipation. Hold | | | | | | | for loose stools | | | | | + + + +---------+ + + | dorzolamide | Place 1 drop into | | 12 | 05/24/20 | | | (TRUSOPT) 2% | both eyes 2 times | | | 19 | | | ophthalmic solution | daily. | | | | | + + + +---------+ + + | escitalopram | Take 1.5 tablets by | 45 | 0 | 02/09/20 | | | (LEXAPRO) 10 mg | mouth Daily. | tablet | | 20 | | | tablet | | | | | | + + + +---------+ + + | famotidine | Take 1 tablet by | 90 | 1 | 06/16/20 | | | (PEPCID) 40 MG | mouth nightly. | tablet | | 19 | | | tablet | | | | | | + + + +---------+ + + | ferrous sulfate | Take 1 tablet by | 90 | 3 | 06/16/20 | | | 325 mg tablet | mouth daily (with | tablet | | 19 | | | | breakfast). | | | | | + + + +---------+ + + | fluticasone | 1 spray by Nasal | | 0 | | | | (FLONASE) 50 | route Daily as | | | | | | mcg/nasal spray | needed for | | | | | | | Allergies. | | | | | + + + +---------+ + + | furosemide (LASIX) | Take 1 tablet by | 60 | 0 | 11/24/19 | | | 20 mg tablet | mouth 2 times daily. | tablet | | 20 | | + + + +---------+ + + | ketoconazole | Apply topically 2 | 30 g | 2 | 10/14/19 | | | (NIZORAL) 2% | times daily. | | | 20 | | | creamIndications: | | | | | | | Haroonea horacios | | | | | | + + + +---------+ + + | lactobacillus GG | Take 1 capsule by | 20 | 0 | 02/09/20 | | | (CULTURELLE) capsule | mouth 2 times daily. | capsule | | 20 | | | | As probiotic (or | | | | | | | use some similar OTC | | | | | | | probiotic) for 10 | | | | | | | days | | | | | + + + +---------+ + + | latanoprost | Place 1 drop into | | 12 | 05/24/20 | | | (XALATAN) 0.005% | both eyes nightly. | | | 19 | | | ophthalmic solution | | | | | | + + + +---------+ + + | Multiple | Take 1 gummy by | | 0 | | | | Vitamins-Minerals | mouth daily | | | | | | (MULTIVITAMIN | | | | | | | GUMMIES ADULT PO) | | | | | | + + + +---------+ + + | Multiple | Take 1 capsule by | | 0 | 06/13/20 | | | Vitamins-Minerals | mouth 2 times daily. | | | 19 | | | (PRESERVISION AREDS | | | | | | | 2) CAPS | | | | | | + + + +---------+ + + | nitroglycerin | Place 0.4 mg under | | 0 | | | | (NITROSTAT) 0.4 mg | the tongue every 5 | | | | | | SL tablet | minutes as needed | | | | | | | for Chest pain. | | | | | + + + +---------+ + + | nystatin | | | 0 | // | | | (MYCOSTATIN) [id number] | | | | 20 | | | UNIT/GM cream | | | | | | + + + +---------+ + + | ondansetron | Take 1 tablet by | 15 | 0 | / | | | (ZOFRAN ODT) 4 mg | mouth every 6 hours | tablet | | 20 | | | disintegrating | as needed for | | | | | | tablet | Nausea. | | | | | + + + +---------+ + + | oxygenIndications: | Inhale 3 L into the | 1 | 2 | 06/16/20 | | | COPD, severe (HCC), | lungs continuous. | Container | | 19 | | | Oxygen dependent | ALETHEA: 99 months. | | | | | + + + +---------+ + + | polyethylene | Take 17 g by mouth | | 0 | 11/25/19 | | | glycol (MIRALAX) | Daily as needed for | | | 20 | | | packet | Constipation. | | | | | + + + +---------+ + + | polyvinyl alcohol | Place 2 drops into | | 0 | 06/13/20 | | | (LIQUITEARS) 1.4% | both eyes every | | | 19 | | | ophthalmic solution | morning. | | | | | + + + +---------+ + + | predniSONE | Take 1 tablet by | 30 | 5 | 02/10/20 | | | (DELTASONE) 10 mg | mouth Daily. | tablet | | 20 | | | tablet | | | | | | + + + +---------+ + + | prochlorperazine | Take 1 tablet by | 30 | 0 | 10/27/19 | | | 10 mg tablet | mouth every 8 hours | tablet | | 20 | | | | as needed. | | | | | + + + +---------+ + + | Respiratory | Replacement O2 mask. | 1 each | 0 | 08/05/20 | | | Therapy Supplies | Please evaluate and | | | 19 | | | MISC | provide an O2 mask | | | | | | | that is more useful | | | | | | | to the patient. | | | | | | | Duration: Lifetime | | | | | | | Dx: COPD, severe | | | | | | | J44.9 | | | | | + + + +---------+ + + | senna (SENOKOT) | Take 1 tablet by | 14 | 0 | 09/08/20 | | | 8.6 mg tablet | mouth Twice daily | tablet | | 19 | | | | as needed for | | | | | | | Constipation. | | | | | + + + +---------+ + + | sodium chloride | 2 sprays by Each | | 0 | | | | ([facility]) 0.65% nasal | Nare route. two to | | | | | | spray | three times daily as | | | | | | | needed for nasal | | | | | | | dryness | | | | | + + + +---------+ + + | UNABLE TO | Powder free | 2 Box | 3 | 12/27/19 | | | FINDIndications: | dispoable gloves, | | | 20 | | | Mixed stress and | size large | | | | | | urge urinary | | | | | | | incontinence | | | | | | + + + +---------+ + + | | Take 1 tablet by | 20 | 0 | 02/24/20 | | | amoxicillin-clavulan | mouth 2 times daily. | tablet | | 20 | 0 | | ate (AUGMENTIN) | | | | | | | 875-125 mg per | | | | | | | tablet | | | | | | + + + +---------+ + + | apixaban (ELIQUIS) | Take 1 tablet by | 60 | 1 | 02/24/20 | | | 2.5 mg | mouth 2 times daily | tablet | | 20 | 0 | | tabletIndications: | for 67 doses. | | | | | | VTE PE Prophylaxis - | Indications: VTE PE | | | | | | hip surgery | Prophylaxis - hip | | | | | | | surgery | | | | | + + + +---------+ + + | bacitracin 500 | Apply 1 Application | | 0 | | | | UNIT/GM ointment | topically 3 times | | | | 0 | | | daily. to bedsore on | | | | | | | buttocks | | | | | + + + +---------+ + + | carvedilol (COREG) | Take 6.25 mg by | | 0 | 08/28/20 | | | 6.25 mg tablet | mouth 2 times daily | | | 19 | 0 | | | (with breakfast & | | | | | | | dinner). | | | | | + + + +---------+ + + | | Take 1 tablet by | 28 | 0 | 02/09/20 | | | HYDROcodone-acetamin | mouth every 6 hours | tablet | | 20 | 0 | | ophen (NORCO) | as needed for Pain. | | | | | | 7.5-325 mg per | | | | | | | tabletIndications: | | | | | | | Generalized | | | | | | | osteoarthritis, Long | | | | | | | term prescription | | | | | | | opiate use | | | | | | + + + +---------+ + + | pantoprazole | Take 1 tablet by | 90 | 1 | 06/16/20 | | | (PROTONIX) 40 mg | mouth every morning | tablet | | 19 | 0 | | tablet | (before breakfast). | | | | | + + + +---------+ + + | predniSONE | Take 1 tablet by | 30 | 1 | 02/09/20 | | | (DELTASONE) 10 mg | mouth Daily. | tablet | | 20 | 0 | | tablet | | | | | | + + + +---------+ + + | | Take 1 tablet by | 20 | 0 | 02/24/20 | | | sulfamethoxazole-tri | mouth 2 times daily | tablet | | 20 | 0 | | methoprim (BACTRIM | for 10 days. | | | | | | DS) 800-160 mg per | Indications: | | | | | | tabletIndications: | Non-Purulent Skin | | | | | | NON-PURULENT SKIN | and Soft Tissue | | | | | | AND SOFT TISSUE | Infection | | | | | | INFECTION | | | | | | + + + +---------+ + + | | Take 1 tablet by | 14 | 0 | 02/09/20 | | | sulfamethoxazole-tri | mouth 2 times daily | tablet | | 20 | 0 | | methoprim (BACTRIM | for 7 days. | | | | | | DS) 800-160 mg per | Indications: | | | | | | tabletIndications: | Non-Purulent Skin | | | | | | NON-PURULENT SKIN | and Soft Tissue | | | | | | AND SOFT TISSUE | Infection | | | | | | INFECTION | | | | | | + + + +---------+ + + documented as of this encounter Progress Notes Kyree Foley RN - 02/09/2020 2:04 PM PDTPt able to urinate after Ceja removal. FUNMILAYO eliasiewed discharge summary with son, Yadiel SALCIDO. POA verbalized understanding of medicatio ns and instructions. Son drove pt home with their portable oxygen. erry, Chace Krueger MD - 02/08/2020 12:06 PM PDT [place] HOSPITALIST PROGRESS NOTE Patient: Ángela Crowley : 1930: Age: 89 y.o. MedRec: [id number] PCP: Candido Link MD Admission date: 01/31/2020 Hospital day # : 8 Physician author: Chace Higuera MD Today: 02/08/2020 Assessment and Hospital Course Active Hospital Problems Diagnosis Acute metabolic encephalopathy Pressure injury of deep tissue of sacral region Acute systolic congestive heart failure Acute respiratory failure with hypoxia Gastroenteritis Resolved Hospital Problems No resolved problems to display. 89F PMHx COPD on 2-3L NC Home O2, TAVR, CHFpEF, presented from home with acute metabolic en cephalopathy 2/2 medications vs infectious process. Treating cellulitis and infected sacral decubitus ulcer Plan #Acute metabolic encephalopathy, stable Unclear etiology, possible medication induced, infectious, CHF history, per notes is baseli ne lucid and oriented. On 01/31 patient is Alert but oriented x1 not to place or time. Passed FRONT OFFICE REPRESENTATIVE evaluation with dysphagia diet ordered on 01/31 COVID 19 test negative on 01/30 CT head/chest/abd/pelvis identified small right pleural effusion with possible infection pr esent that can be possible pneumonia. No clear signs of acute abdominal infection. No acute intracranial abnormalities 02/06: mental status slowly improved, can feed self up to chair, pain improved/ 1U PRBC trans fused 02/07: improved mental status, feeding self. Improved leukocytosis, improved Hgb -norco PRN for pain -delirium precautions -Increased lexapro up to 15mg this visit. -treating infectious causes, likely 2/2 cellulitis 2/2 sacral decubitus ulcer, continue PO abx as below #Sepsis 2/2 Sacral Decubitous, Stage 3, suspected infection #Leukocytosis 2/2 sepsis 2/2 chronic steroid Initial differentials on admission included gastroenteritis, pneumonia, UTI, and cellulitis of sacral decub. Repeat CXR no sign of pneumonia (with no cough or SOB), UCx grew yeast of undetermined significance, and Cdiff and stool pathogens negative. Source of sepsis likely 2 /2 cellulitis surrounding sacral decub ulcer. Wound cultures grew MRSA. Has received initial ly levaquin switched to vanc unasyn then switched to bactrim on 02/05. Afebrile since admissio n. -Continue wound care -Continue bactrim (started 02/05) -trend CBC -supportive care, zofran PRN #Hx of COPD, not in acute exacerbation Home O2 is 2-3L NC currently on home O2 on evaluation. Has history of prior MRSA PNA. 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 troponins stable, no chest pain during admission. 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 Repeat BNP 02/01 635 Changed lasix 20IV BID to 20 PO BID on 02/01, clinically euvolemic, lasix 20mg PO BID is mayela e dose, on 02/05 changed to lasix 20mg PO Daily, back to lasix 20mg PO BID on 02/06 -Continue lasix 20mg PO BID -Continue coreg -Continue aspirin/statin -Trend I/Os, daily weights #Anemia, iron deficiency Iron Low, no sign of bleeding, likely chronic. On ferrous sulfate BID. Given 1U PRBC 02/06 wi improvement to hgb 9.1. will monitor #Esophageal dysphagia #New diagnosis of achalasia Found to have significant dysphagia on FRONT OFFICE REPRESENTATIVE evaluation. Will require upper GI workup per FRONT OFFICE REPRESENTATIVE . Recommend reflux precautions and puree diet. Will d/w GI for possible EGD and esophagram f or motility. EGD was last done 08/2019 with no evidence of cause of dysphagia. Given previou s evaluation, the patient could benefit from manometry outpatient and would not benefit from repeat EGD at this time. Recommended esophagram while inpatient. 02/02 Esophagram shows lower esophageal sphincter spasm likely related to achalasia. D/w Dr. Sydney PEREZ and next step would be to perform manometry as outpatient for confirmation of bhavani lasia and to approach treatment as outpatient. -Continue dysphagia diet -f/u outpatient #malnutrition I attest that this clinical assessment using ASPEN criteria 1 is accurate for this patient and supports that as a medical diagnosis. A specific nutrition treatment plan will be imple mented as outlined in the registered dietitian's plan of care. Nutrition Diagnosis: Severe protein-calorie malnutrition Type, Severe: Chronic illness Weight Loss: Greater than 7.5% in 3 months (8% unintended weight loss, BMI 17.95) Energy Intake: Less than or equal to 50% of estimated energy intake compared to needs in gr eater than or equal to 5 days (eating 10-45% of dysphagia diet since admit) Body Fat: Moderate depletion Muscle Mass: Severe depletion #Bilateral arm swelling Likely 2/2 fluid overload, left US forearm revealed No DVT #FAITH, resolved #Hypernatremia, resolved DVT PPx: SCDs, held AC for anemia GI PPx: pepcid Diet: puree diet, 1800ml fluid restriction, Na 2gm Dispo: continue PT/OT. Will plan for home with home health with PT, Nurse aide, wheelchair, FWW, and wound care for sacral decub, plan for DC on 02/08 if able Goals of care: Palliative care consulted, appreciate recs. No hospice as per son. Continue full care. Chace Higuera MD 02/08/2020 12:06 PM [facility] Subjective CC Improved spirits this am but wants to go home. Son is unavailable to pick her up today and wants to wait for tomorrow, I did note during conversation she is stable today for home with home health but he is currently unavailable. Pain continues in the lower back from the sacral decub Afebrile Leukocytosis downtrending ROS See above Objective Exam General NAD, AOx1, not place or time Cardiac RRR, no murmurs rubs or gallups Extremities 2+ pititng edema bilateral upper extremities, no edema lower extremities. Continued Sacral decubitous stage 3. surrounding erythema Lung Fine crackles auscultated in mid and lower lobes bilaterally. Normal respiratory rate on 2L NC Abdominal Soft, Nontender, nondistended, NBS Neuro NFND, generalized weakness otherwise 5/5 Serial weights: Filed Weights: 01/31/20 0838 02/01/20 0500 02/02/20 0442 02/03/20 0400 Weight: 53.5 kg (117 lb 15.1 oz) 51.9 kg (114 lb 6.4 oz) 50.1 kg (110 lb 7.2 oz) 50.4 kg (1 11 lb 3.2 oz) 02/04/20 0307 02/05/20 0358 02/06/20 0456 02/07/20 0035 Weight: 50.7 kg (111 lb 12.4 oz) 50.9 kg (112 lb 4.8 oz) 50.4 kg (111 lb 1.8 oz) 50.9 kg (1 12 lb 3.4 oz) 02/08/20 0551 Weight: 51.3 kg (113 lb 1.5 oz) Most recent weight: Input and output 2 shifts and 3 shifts: Wt Readings from Last 1 Encounters: 02/08/20 51.3 kg (113 lb 1.5 oz) I/O last 24 Hours: In: 946 [P.O.:620; Blood:326] Out: 1300 [Urine:1300] I/O last 3 completed shifts: In: 1446 [P.O.:1120; Blood:326] Out: 1800 [Urine:1800] Vitals Ranges: Temp: [36.7 C (98.1 F)-37.2 C (99 F)] 36.8 C (98.2 F) Pulse: [86-104] 99 Resp: [19-32] 19 BP: (100-162)/(54-83) 153/70 Vitals: Temp: 36.8 C (98.2 F) BP: 153/70 Pulse: 99 Resp: 19 SpO2: 95 % SpO2 95 % on nasal cannula at flow rate 1L/min Diet and Supplements Diet Diet general; dysphagia mechanical; thin liquids allowed; sodium restricted 2 gm; 1800 ml fluid; Effective Now Number of Occurrences: Until Specified Order Comments: RED TRAY for good set up and intermittent supervision. 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 Thin liquids. Straws ok. Order Questions: Type Diet general Texture modifications dysphagia mechanical Fluid consistency modifications thin liquids allowed sodium restictions sodium restricted 2 gm fluid volume restictions 1800 ml fluid Nourishments Dietary nutrition supplements Boost; 1 Can Number of Occurrences: Until Specified Order Comments: With meals Order Questions: Supplement Boost Volume: 1 Can Objective Data Allergies: Allergies Allergen Reactions Flagyl [Metronidazole] Nausea And Vomiting and GI Upset Percocet [Oxycodone] Unknown Pregabalin Unknown Lyrica Current Medications: Current Facility-Administered Medications Medication Dose Route Frequency Provider Last Rate Last Dose acetaminophen (TYLENOL) tablet 650 mg 650 mg Oral BID (8 and 16) PRABHJOT Scherer acetaminophen (TYLENOL) tablet 650 mg 650 mg Oral Q6H PRN Félix Gan MD 650 mg at 02/07/20 1512 albuterol-ipratropium 2.5-0.5 mg/3 mL nebulizer solution 3 mL 3 mL Nebulization RT Q4H PRN Chace Higuera MD albuterol-ipratropium 2.5-0.5 mg/3 mL nebulizer solution 3 mL 3 mL Nebulization RT Q6H Aida Mills MD 3 mL at 02/08/20 0907 atorvaSTATin (LIPITOR) tablet 20 mg 20 mg Oral Nightly Aida Mills MD 20 mg at 0501/23 brimonidine (ALPHAGAN) 0.2% ophthalmic solution 1 drop 1 drop Both Eyes BID Aida hernandez MD 1 drop at 02/08/20 0903 budesonide (PULMICORT) nebulizer solution 0.5 mg 0.5 mg Nebulization RT BID Aida hernandez MD 0.5 mg at 02/08/20 09 carvedilol (COREG) tablet 3.125 mg 3.125 mg Oral BID WC Aida Mills MD 3.125 mg at 02/08/20 0857 dorzolamide (TRUSOPT) 2% ophthalmic solution 1 drop 1 drop Both Eyes BID Aida Mills MD 1 drop at 02/08/20 0903 escitalopram (LEXAPRO) tablet 15 mg 15 mg Oral Daily Chace Higuera MD 15 mg a t 02/08/20 0857 famotidine (PEPCID) injection 20 mg 20 mg Intravenous Daily Aida Mills MD 20 mg at 02/08/20 0858 ferrous sulfate tablet 325 mg 325 mg Oral BID WC Chace Higuera MD 325 mg at 0 02/08/20 0857 furosemide (LASIX) tablet 20 mg 20 mg Oral BID (8 and 16) Chace Higuera MD 20 mg at 02/08/20 0857 HYDROcodone-acetaminophen (NORCO) 5-325 mg per tablet 1-2 tablet 1-2 tablet Oral Q6H P RN Chace Higuera MD 1 tablet at 02/08/20 0626 lactobacillus GG (CULTURELLE) capsule 1 capsule 1 capsule Oral BID Aida Mills MD 1 capsule at 02/08/20 0857 latanoprost (XALATAN) 0.005% ophthalmic solution 1 drop 1 drop Both Eyes Nightly Gagandeep Mills MD 1 drop at 02/07/202033 ondansetron (ZOFRAN) injection 4 mg 4 mg Intravenous Q6H PRN Aida Mills MD predniSONE (DELTASONE) tablet 10 mg 10 mg Oral Daily Chace Higuera MD 10 mg a t 02/08/20 0857 sulfamethoxazole-trimethoprim (BACTRIM DS) 800-160 mg per tablet 1 tablet 1 tablet Ora l BID Chace Higuera MD 1 tablet at 02/08/20 0857 Current Infusions: Hematology and anemia Recent Labs Lab 02/08/20 0609 02/07/20 1245 02/07/20 0545 WBC 10.8 12.8* 15.1* HGB 9.1* 7.5* 7.4* HCT 28.2* 25.4* 23.8* PLT 123* 135* 109* NEUPCT 69.1 89.4* 78.3 No results for input(s): PROTIME, INR, PTT in the last 168 hours. Recent Labs Lab 02/05/20 1024 02/05/20 0628 IRON -- 23* TIBC -- 108* PCTSAT -- 21.3 FERRITIN -- 186 [id number] -- 976* FOLATE 8.8 -- Inflammatory markers No results for input(s): LACTATE, PROCALCITONI, CRP, ESR in the last 168 hours. Chemistry Recent Labs Lab 02/08/20 0609 02/07/20 0545 02/06/20 1156 02/06/20 0510 GLU 77 80 -- 82 NA 141 143 145 146* K 4.4 4.2 -- 3.7 CL 108* 109* -- 111* CO2 29 31 -- 33* ANIONGAP 4 3 -- 2* BUN 19 19 -- 21 CREA 0.78 0.66 -- 0.60 GFRNONAA >60 >60 -- >60 CALCIUM 7.6* 7.4* -- 7.7* Recent Labs Lab 02/08/20 0609 02/07/20 0545 02/06/20 0510 MG 2.1 2.0 1.9 No results for input(s): AMYLASE, LIPASE in the last 168 hours. No results for input(s): TRIG, CHOL, HDL, LDL in the last 168 hours. No results for input(s): AMMONIA in the last 168 hours. Cardiology & Digoxin Recent Labs Lab 02/02/20 0640 BNP 635* ABG No results for input(s): PHART, PO2ART, TGQ1XRF, DHM3UAN, BEART, [id number] in the last 168 h ours. No results for input(s): SPECSOURCE, PHPOCB, PCO2, PO2, HCO3, TCO2, BEART, [id number] in the last 168 hours. Drug of overdose and abuse No results for input(s): ALCOHOL, ACTMN, SALICYLATE in the last 168 hours. No results for input(s): AMPHEQUAL, BARBITURATE, BENZSCR, CANNIBSCR, AMPHETAMINE, METHADSCR , OPIATESCR in the last 168 hours. Urinalysis Recent Labs Lab 02/02/20 0344 GLUCOSEU Negative WBCUA >100* RBCUA 25-50* SQUAMEPIUA 5-10* BACTERIAUA 1+* Point of care glucose No results for input(s): POCGLU in the last 168 hours. Micro results more choices using dot micro (below is last 7 days) Microbiology Results (Last 7) Date with Culture/Sensitivity) Procedure Component Value Units Date/Time Culture, Wound, Smear, w/Anaerobe [[id number]] Collected: 02/03/201112 Order Status: Sent Lab Status: In process Updated: 02/05/20 1229 Specimen: Tissue from Vertebrae, Sacral Narrative: The following orders were created for panel order Culture, Wound, Smear, w/Anaerobe. Procedure Abnormality Status --------- ------ Culture, Wound, Smear[[id number]] Final result Culture, Anaerobic[[id number]] Normal Preliminary result Please view results for these tests on the individual orders. Culture, Wound, Smear [[id number]] (Susceptibility) Collected: 02/03/201112 Order Status: Completed Lab Status: Final result Updated: 02/05/20 1229 Specimen: Tissue from Vertebrae, Sacral Culture 4+ Staphylococcus aureus,Methicillin resistant (MRSA) Comment: *INFECTION PREVENTION ALERT - MRSA* CONTACT PRECAUTIONS REQUIRED. Gram Stain Result No white blood cells (PMNs) seen 1+ Epithelial cells 2+ Gram positive cocci Susceptibility Staphylococcus aureus,Methicillin resistant (MRSA) (1) Antibiotic Interpretation Microscan Method Status Ciprofloxacin Resistant >=8 ug/mL Not Specified Final Clindamycin Resistant >=4 ug/mL Not Specified Final Erythromycin Resistant >=8 ug/mL Not Specified Final Gentamicin Sensitive <=0.5 ug/mL Not Specified Final Levofloxacin Resistant >=8 ug/mL Not Specified Final Linezolid Sensitive 2 ug/mL Not Specified Final Minocycline Sensitive <=0.5 ug/mL Not Specified Final Moxifloxacin Resistant >=8 ug/mL Not Specified Final Oxacillin Resistant >=4 ug/mL Not Specified Final Penicillin G Resistant >=0.5 ug/mL Not Specified Final Rifampin Sensitive <=0.5 ug/mL Not Specified Final Rifampin should not be used alone for chemotherapy. Tetracycline Sensitive <=1 ug/mL Not Specified Final Tigecycline Sensitive <=0.12 ug/mL Not Specified Final Trimethoprim + Sulfamethoxazole Sensitive <=10 ug/mL Not Specified Final Vancomycin Sensitive 1 ug/mL Not Specified Final Culture, Anaerobic [[id number]] (Normal) Collected: 02/03/201112 Order Status: Completed Lab Status: Preliminary result Updated: 02/06/20 1309 Specimen: Tissue from Vertebrae, Sacral Culture Culture in progress... Culture, Urine [[id number]] Collected: 02/02/20 0344 Order Status: Completed Lab Status: Final result Updated: 02/05/20 1228 Specimen: Urine, Unspecified Source Culture >100,000 CFU/ml Roxanna albicans Radiology results (more choices using dot risresults) Vas Upper Extremity Venous Left Result Date: 02/07/2020 VAS UPPER EXTREMITY VENOUS LEFT 02/07/2020 4:52 PM HISTORY: left forearm swelling, concern fo r hematoma vs clot. COMPARISON: None. PROTOCOL: Tomlinson scale and Doppler images of the upper e xtremity veins. FINDINGS: Line is noted in the mid basilic which is patent. Radial and ulnar vessels are patent. No evidence for DVT within the radial and ulnar vessels. Edema is noted in the area of sosa ent's reported swelling in the left proximal forearm. Other vessels were not imaged. Dictate d and Signed by: Bartolome Neff MD Electronically signed: 02/07/2020 7:42 PM Reference. This is NOT part of the patient's formal assessment section. In the assessment or plan section of notes the author may date some of the subsections with a number such as "23" or "23" to indicate the date of that entry or event. In the example below the 1st line is the original entry and the subsequent lines indicate flowing updates to the subsection: Example assessment subsection (such as CHF or CP or Pneumonia) 23 Patient is improved today with resolution of symptoms 24th Worse with recurrence of symptoms requiring further testing Portions of this chart may have been created with [employer] voice recognition software. Occasi onal wrong-word or sound-alike substitutions may have occurred due to the inherent owen itations of voice recognition software. Please read the chart carefully and recognize, using context, where these substitutions have occurred Marina Kyle ARNP - 02/08/2020 9:54 AM PDT [facility] PALLIATIVE CARE PROGRESS NOTE Pt. Name/Age/: Ángela Crowley 89 y.o. 1930 Med. Record Number: [id number] Palliative Paralegal Assistant: PRABHJOT Leon Referring Provider: Chace Higuera MD Primary Care Physician: Candido Link MD Resuscitation Status: Yes CPR Current Code Status: FULL CODE Advance Directive: No POLST: No Surrogate Decision Maker: According to POA for Health available son Yadiel, Contact: DPBRANDT Paperwork in EHR Prognosis: improving. Hospice eligible?: no. Based on goals of care. PATIENT S DECISION-MAKING CAPACITY AT TIME OF VISIT:Non-decisional. Goals of care: Conversation held 02/07/2020 with the patient's son / DPOA. For content review please see Discussion below. SUBJECTIVE Summary of Medical Situation: (Illness progression and Prognosis): Ángela Crowley is a 89 y.o. female admitted on 01/31/2020 for vomiting, acute altered mental status and was found to have gastroenteritis with acute metabolic encephalopathy thou ght to be secondary to medications and or infection, acute CHF exacerbation, acute respirato ry failure with hypoxia and associated acute kidney injury, and sacral decubitus ulcer stage III with suspected infection. Medical history is pertinent for: COPD on chronic home O2 at 2 to 3 LPM, history of tobacco use ([id number]) Protein calorie malnutrition, severe Congestive heart failure, systolic, pEF CAD, aortic stenosis History of rheumatic fever, tuberculosis Ángela is found to be somewhat somnolent this morning, initially does not wake for this prov ider to voice, touch, shoulder shake or during exam. She did wake briefly at the end of exam and stated she wants to go home. She is very frail and pale, but not demonstrating signs of discomfort. The patient did not answer ROS questions but did make two statements. These are 1) she want s to go home and 2) she wants her son to be told that she needs a wheelchair. Palliative Care Service has been asked to assist with goals of care and advanced care discu ssions including hospice care. Psychosocial: Per discussion with son / DPOA Yadiel, Ángela lives with him and he has been her caregiver for the past 4 years. He states she is cognitively intact at baseline. 02/08/2020 Current Concerns of Patient/Family: Ángela is alert, energetic and eager to go home. She is disappointed when she found this pro vider was not there to help her dress to leave the hospital. Ángela initially denied all ROS questions but overheard her tell PT Lisa that she had some low back pain when getting up to the side of the bed. She would benefit from routine acetaminophen and limit use of PRN hydr ocodone-acetaminophen due to risk of sedation, falls and constipation. She is afebrile though at 89 years of age, >= 98 F can be considered febrile if baseline is lower. Blood pressure is elevated as is heart rate; excitement? Hemogram and chemistry are unremarkable. Ángela is able to state her needs and wishes. She is ready to return home but would need [facility] and wound care. DISCUSSION AND PLAN Discussion: 02/07/2020 Attended by: the patient's son Yadiel and palliative care PARACHUTE PANEL JOINER Marina Cutler; phone confere nce. Palliative Care Diagnoses: 1. Primary Diagnosis: Acute metabolic encephalopathy secondary to medications verses infe ction, acute respiratory failure with hypoxia, acute CHF exacerbation with associated acute kidney injury. Gastroenteritis Low back pain, 02/08/2020 Discussion: Treating skin infection with Bactrim DS. Daily prednisone is lowering her a bility to fight infection. Patient was able to let us know she had brief back pain when flexing and extending her s pine to get to the side of her bed and sit up. She has hydrocodone-acetaminophen PRN but giv en her age, risk of falls, confusion, and constipation use should be minimal. Treatment / Plan: Medical management by attending physician Recommend continued home health visits including wound care services 02/08/2020: Acetaminophen 650 mg twice daily; acetaminophen dose not to exceed 2,000 mg from all source s in 24 hours. 2. Severe protein calorie malnutrition, stage III sacral decubitus ulcer with infection, anxiety Discussion: BMI 18.11. Sand Control Worker is following. Son Yadiel has been her primary caregive r for 4 years per his statement today. He indicates she is cognitively intact at baseline, f reely ambulatory and believes her current state is due to escitalopram "was stopped and now she is like she is." Yadiel states he spoke with PCP Nikolay who concurs with this. He states "we alre raghavendra increased the dose to 15 mg." Yadiel discussed hospice with Dr Millan and indicates he believes this is not warrante d at this time. Concerned for adequate care, wound care and need for therapies, this provider asked if h e ([facility]) would allow home health visits and he did agree. He is not willing to accept a SNF stay due to her anxiety and his inability to visit her (COVID-19 pandemic restrictions). [employer]roeco has been involved with this patient. Patient did state she wants her son to understand she needs a wheelchair at home. I attest that this clinical assessment using ASPEN criteria 1 is accurate for this patie nt and supports that as a medical diagnosis. A specific nutrition treatment plan will be i mplemented as outlined in the registered dietitian's plan of care. Nutrition Diagnosis: Severe protein-calorie malnutrition Type, Severe: Chronic illness Weight Loss: Greater than 7.5% in 3 months (8% unintended weight loss, BMI 17.95) Energy Intake: Less than or equal to 50% of estimated energy intake compared to needs in greater than or equal to 5 days (eating 10-45% of dysphagia diet since admit) Body Fat: Moderate depletion Muscle Mass: Severe depletion Treatment / Plan: Recommend home health, PT/OT/FRONT OFFICE REPRESENTATIVE and industrial safety and health specialist PT has recommended wheelchair and wheeled walker - see note by Joe Lee today 3. Palliative Care Service Z51.5 Overall Plan and Goals: Son / DPOA feels she will return to her baseline with increased dose of her "anxiety" medication. He is not ready to consider SNF or hospice and seems to h ave the support of her PCP regarding anticipated outcome. This provider encouraged Yadiel to come into hospital, visit Ángela and discuss how her presentation compares with home functional, cognitive status. Noting his statements to counter caser Dilcia JUNE indicating she was ambulating with a walker, distance up to 200 f eet including outside. She is ambulating short in room distances in hospital. 02/07/2020 PAINAD PAIN Assessment: Best 0 / Worst 0 Patient Active Problem List Diagnosis Heart failure with acute decompensation, type unknown Anemia Closed nondisplaced fracture of proximal phalanx of lesser toe of left foot Coronary artery disease involving red cliff coronary artery of red cliff heart without angina pectoris Centrilobular emphysema S/p TAVR (transcatheter aortic valve replacement), bioprosthetic Generalized anxiety disorder GERD (gastroesophageal reflux disease) Hypertension Pulmonary hypertension, mild Cerebral atherosclerosis Uses walker COPD (chronic obstructive pulmonary disease) Mitral valve stenosis, mild Former smoker Moderate protein-calorie malnutrition Impaired mobility Hypoxemia Generalized osteoarthritis Detrusor dysfunction Anxiety COPD exacerbation Severe protein-calorie malnutrition Right shoulder pain Chest pain Decubitus ulcer of sacral region, stage 2 Hiatal hernia NSTEMI (non-ST elevated myocardial infarction) Shortness of breath Acute coronary syndrome Influenza A Pneumonia due to methicillin resistant Staphylococcus aureus (MRSA) Pressure injury of deep tissue of sacral region Acute systolic congestive heart failure Acute respiratory failure with hypoxia Gastroenteritis Acute metabolic encephalopathy HISTORY: Past Medical History: Diagnosis Date Aortic stenosis COPD (chronic obstructive pulmonary disease) (HCC) Coronary artery disease Kidney stone MRSA (methicillin resistant Staphylococcus aureus) 11/2019; 02/03/2020 Nasal screen and sputum; Sacral wound Rheumatic fever Tuberculosis Venereal disease Past Surgical History: Procedure Laterality Date 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 CHOLECYSTECTOMY COLONOSCOPY N/A 06/11/2019 Procedure: COLONOSCOPY-Possible Flex Sig; Surgeon: Edwin Stoddard MD; Location: [facility] PROC[facility]URE UNIT HYSTERECTOMY NIRMAL AND BSO TONSILLECTOMY AND ADENOIDECTOMY UPPER GASTROINTESTINAL ENDOSCOPY N/A 06/07/2019 Procedure: EGD; Surgeon: Edwin Stoddard MD; Location: [facility] MEDICAL PROCEDURE UNIT UPPER GASTROINTESTINAL ENDOSCOPY N/A 08/20/2019 Procedure: EGD; Surgeon: John Grimes MD; Location: [facility] MED[facility] PROCEDURE [facility]IT Family History Problem Relation Age of Onset Hypertension Mother Stroke Mother Social History Socioeconomic History Marital status: Spouse name: Not on file Number of children: Not on file Years of education: Not on file Highest education level: Not on file Tobacco Use Smoking status: Former Smoker Types: Cigarettes Start date: 1944 Last attempt to quit: 1968 Years since quittin.3 Smokeless tobacco: Never Used Substance and Sexual Activity Alcohol use: Never Frequency: Never Drug use: Never Review of Systems A comprehensive review of systems was negative except for items noted in HPI/Subjective. OBJECTIVE Allergies Allergies Allergen Reactions Flagyl [Metronidazole] Nausea And Vomiting and GI Upset Percocet [Oxycodone] Unknown Pregabalin Unknown Lyrica Medications Current Facility-Administered Medications Medication Dose Route Frequency Provider Last Rate Last Dose acetaminophen (TYLENOL) tablet 650 mg 650 mg Oral Q6H PRN Félix Gan MD 650 mg at 02/07/20 1512 albuterol-ipratropium 2.5-0.5 mg/3 mL nebulizer solution 3 mL 3 mL Nebulization RT Q4H PRN Chace Higuera MD albuterol-ipratropium 2.5-0.5 mg/3 mL nebulizer solution 3 mL 3 mL Nebulization RT Q6H Aida Mills MD 3 mL at 02/08/20906 atorvaSTATin (LIPITOR) tablet 20 mg 20 mg Oral Nightly Aida Mills MD 20 mg at 0501/23 brimonidine (ALPHAGAN) 0.2% ophthalmic solution 1 drop 1 drop Both Eyes BID Aida hernandez MD 1 drop at 02/08/20 09 budesonide (PULMICORT) nebulizer solution 0.5 mg 0.5 mg Nebulization RT BID Aida hernandez MD 0.5 mg at 02/08/20906 carvedilol (COREG) tablet 3.125 mg 3.125 mg Oral BID Aida Mills MD 3.125 mg at 02/08/20 0857 dorzolamide (TRUSOPT) 2% ophthalmic solution 1 drop 1 drop Both Eyes BID Aida Mills MD 1 drop at 02/08/20902 escitalopram (LEXAPRO) tablet 15 mg 15 mg Oral Daily Chace Higuera MD 15 mg a t 02/08/20 0857 famotidine (PEPCID) injection 20 mg 20 mg Intravenous Daily Aida Mills MD 20 mg at 02/08/20 0858 ferrous sulfate tablet 325 mg 325 mg Oral BID Chace Higuera MD 325 mg at 0 02/08/20 0857 furosemide (LASIX) tablet 20 mg 20 mg Oral BID (8 and 16) Chace Higuera MD 20 mg at 02/08/20 0857 HYDROcodone-acetaminophen (NORCO) 5-325 mg per tablet 1-2 tablet 1-2 tablet Oral Q6H P RN Chace Higuera MD 1 tablet at 02/08/20 0626 lactobacillus GG (CULTURELLE) capsule 1 capsule 1 capsule Oral BID Aida Mills MD 1 capsule at 02/08/20 0857 latanoprost (XALATAN) 0.005% ophthalmic solution 1 drop 1 drop Both Eyes Nightly Gagandeep Mills MD 1 drop at 02/07/202033 ondansetron (ZOFRAN) injection 4 mg 4 mg Intravenous Q6H PRN Aida Mills MD predniSONE (DELTASONE) tablet 10 mg 10 mg Oral Daily Chace Higuera MD 10 mg a t 02/08/20 0857 sulfamethoxazole-trimethoprim (BACTRIM DS) 800-160 mg per tablet 1 tablet 1 tablet Ora l BID Chace Higuera MD 1 tablet at 02/08/20 0857 Scheduled Medications PRN Med's albuterol-ipratropium 3 mL Nebulization RT Q6H atorvaSTATin 20 mg Oral Nightly brimonidine 1 drop Both Eyes BID budesonide 0.5 mg Nebulization RT BID carvedilol 3.125 mg Oral BID WC dorzolamide 1 drop Both Eyes BID escitalopram 15 mg Oral Daily famotidine 20 mg Intravenous Daily ferrous sulfate 325 mg Oral BID WC furosemide 20 mg Oral BID (8 and 16) lactobacillus GG 1 capsule Oral BID latanoprost 1 drop Both Eyes Nightly predniSONE 10 mg Oral Daily sulfamethoxazole-trimethoprim 1 tablet Oral BID acetaminophen, albuterol-ipratropium, HYDROcodone-acetaminophen, ondansetron Lab Pertinent Labs Reviewed for Today's Visit: Recent Results (from the past 48 hour(s)) Vancomycin, Trough Result Value Ref Range Date of Last Dose Time of Last Dose Vancomycin Trough 14.4 (H) 5.0 - 10.0 ug/mL Sodium Result Value Ref Range Na 145 136 - 145 mmol/L Basic Metabolic Panel Result Value Ref Range Na 143 136 - 145 mmol/L K 4.2 3.4 - 5.1 mmol/L Cl 109 (H) 98 - 107 mmol/L CO2 31 20 - 31 mmol/L Anion Gap 3 3 - 16 mmol/L Glucose 80 60 - 106 mg/dL BUN 19 9 - 23 mg/dL Creatinine 0.66 0.55 - 1.02 mg/dL eGFR if not >60 >=60 mL/min/1.73m2 Calcium 7.4 (L) 8.7 - 10.4 mg/dL BUN/Creatinine Ratio 28.8 CBC with Differential Result Value Ref Range WBC 15.1 (H) 4.0 - 11.0 K/uL RBC 2.53 (L) 3.70 - 5.20 M/uL Hemoglobin 7.4 (LL) 11.5 - 16.0 g/dL Hematocrit 23.8 (L) 34.0 - 47.0 % MCV 94.1 83.0 - 101.0 fL MCH 29.2 28.0 - 35.0 pg MCHC 31.1 (L) 32.0 - 36.0 g/dL RDW-CV 15.9 (H) <15.0 % RDW-SD 54.8 (H) 35.1 - 46.3 fL Platelet Count 109 (L) 140 - 440 K/uL MPV 12.5 (H) 6.5 - 12.4 fL Immature Platelet Fraction 2.1 0.9 - 11.2 % % Neutrophils 78.3 45.0 - 82.0 % % Lymphocytes 11.8 (L) 20.0 - 45.0 % % Monocytes 7.9 4.0 - 12.0 % % Eosinophils 0.8 0.0 - 5.0 % % Basophils 0.1 0.0 - 1.0 % % Immature Granulocytes 1.1 (H) 0.0 - 0.4 % Absolute Neutrophils 11.84 (H) 1.80 - 8.50 K/uL Absolute Lymphocytes 1.79 0.60 - 3.20 K/uL Absolute Monocytes 1.20 (H) 0.00 - 1.00 K/uL Absolute Eosinophils 0.12 0.00 - 0.40 K/uL Absolute Basophils 0.02 0.00 - 0.10 K/uL Absolute Immature Granulocytes 0.17 (H) 0.00 - 0.03 K/uL % nRBC 0 0 - 2 per 100 WBCs Absolute nRBC 0.00 0.00 - 0.01 K/uL Magnesium Result Value Ref Range Magnesium 2.0 1.6 - 2.6 mg/dL CBC with Differential Result Value Ref Range WBC 12.8 (H) 4.0 - 11.0 K/uL RBC 2.62 (L) 3.70 - 5.20 M/uL Hemoglobin 7.5 (LL) 11.5 - 16.0 g/dL Hematocrit 25.4 (L) 34.0 - 47.0 % MCV 96.9 83.0 - 101.0 fL MCH 28.6 28.0 - 35.0 pg MCHC 29.5 (L) 32.0 - 36.0 g/dL RDW-CV 15.9 (H) <15.0 % RDW-SD 55.9 (H) 35.1 - 46.3 fL Platelet Count 135 (L) 140 - 440 K/uL MPV 11.7 6.5 - 12.4 fL % Neutrophils 89.4 (H) 45.0 - 82.0 % % Lymphocytes 5.7 (L) 20.0 - 45.0 % % Monocytes 3.7 (L) 4.0 - 12.0 % % Eosinophils 0.5 0.0 - 5.0 % % Basophils 0.1 0.0 - 1.0 % % Immature Granulocytes 0.6 (H) 0.0 - 0.4 % Absolute Neutrophils 11.48 (H) 1.80 - 8.50 K/uL Absolute Lymphocytes 0.73 0.60 - 3.20 K/uL Absolute Monocytes 0.47 0.00 - 1.00 K/uL Absolute Eosinophils 0.06 0.00 - 0.40 K/uL Absolute Basophils 0.01 0.00 - 0.10 K/uL Absolute Immature Granulocytes 0.08 (H) 0.00 - 0.03 K/uL % nRBC 0 0 - 2 per 100 WBCs Absolute nRBC 0.00 0.00 - 0.01 K/uL Type and Screen Result Value Ref Range ABO A Rh Type Positive Antibody Screen Negative Red Blood Cells (PRBC) - Crossmatch Result Value Ref Range Product Code [id number] UNIT # [id number] UNIT ABO A UNIT RH POS CROSSMATCH INTERP Compatible Unit Status Crossmatched Blood Product Expiration Date and Time [id number] Product Blood Type Barcode 6200 Basic Metabolic Panel Result Value Ref Range Na 141 136 - 145 mmol/L K 4.4 3.4 - 5.1 mmol/L Cl 108 (H) 98 - 107 mmol/L CO2 29 20 - 31 mmol/L Anion Gap 4 3 - 16 mmol/L Glucose 77 60 - 106 mg/dL BUN 19 9 - 23 mg/dL Creatinine 0.78 0.55 - 1.02 mg/dL eGFR if not >60 >=60 mL/min/1.73m2 Calcium 7.6 (L) 8.7 - 10.4 mg/dL BUN/Creatinine Ratio 24.4 CBC with Differential Result Value Ref Range WBC 10.8 4.0 - 11.0 K/uL RBC 3.13 (L) 3.70 - 5.20 M/uL Hemoglobin 9.1 (L) 11.5 - 16.0 g/dL Hematocrit 28.2 (L) 34.0 - 47.0 % MCV 90.1 83.0 - 101.0 fL MCH 29.1 28.0 - 35.0 pg MCHC 32.3 32.0 - 36.0 g/dL RDW-CV 17.7 (H) <15.0 % RDW-SD 57.8 (H) 35.1 - 46.3 fL Platelet Count 123 (L) 140 - 440 K/uL MPV 11.2 6.5 - 12.4 fL Immature Platelet Fraction 2.4 0.9 - 11.2 % % Neutrophils 69.1 45.0 - 82.0 % % Lymphocytes 17.5 (L) 20.0 - 45.0 % % Monocytes 11.1 4.0 - 12.0 % % Eosinophils 1.6 0.0 - 5.0 % % Basophils 0.1 0.0 - 1.0 % % Immature Granulocytes 0.6 (H) 0.0 - 0.4 % Absolute Neutrophils 7.47 1.80 - 8.50 K/uL Absolute Lymphocytes 1.89 0.60 - 3.20 K/uL Absolute Monocytes 1.20 (H) 0.00 - 1.00 K/uL Absolute Eosinophils 0.17 0.00 - 0.40 K/uL Absolute Basophils 0.01 0.00 - 0.10 K/uL Absolute Immature Granulocytes 0.07 (H) 0.00 - 0.03 K/uL % nRBC 0 0 - 2 per 100 WBCs Absolute nRBC 0.00 0.00 - 0.01 K/uL Magnesium Result Value Ref Range Magnesium 2.1 1.6 - 2.6 mg/dL Radiology/Imaging Vas Upper Extremity Venous Left Result Date: 02/07/2020 VAS UPPER EXTREMITY VENOUS LEFT 02/07/2020 4:52 PM HISTORY: left forearm swelling, concern fo r hematoma vs clot. COMPARISON: None. PROTOCOL: Tomlinson scale and Doppler images of the upper e xtremity veins. FINDINGS: Line is noted in the mid basilic which is patent. Radial and ulnar vessels are patent. No evidence for DVT within the radial and ulnar vessels. Edema is noted in the area of sosa ent's reported swelling in the left proximal forearm. Other vessels were not imaged. Dictate d and Signed by: Bartolome Neff MD Electronically signed: 02/07/2020 7:42 PM Vitals BP 153/70 | Pulse 99 | Temp 36.8 C (98.2 F) (Oral) | Resp 19 | Ht 1.676 m (5' 6") | Wt 51.3 kg (113 lb 1.5 oz) | SpO2 95% | BMI 18.25 kg/m Physical Exam General: Patient appears alert, eager and a bit anxious. She is excited to go home. HEENT: no head trauma noted. Pupils equal. oral mucosa moist. Lungs: No wheezes, rhonchi, or crackles. non labored. Heart: S1 S2, RRR. Trace BLE pedal edema. Abdomen: Soft, no tenderness, bowel tones present. Musculoskeletal: moved herself into an upright position and attempting to get out of bed. Neurological exam: grossly non focal exam. Skin: Warm and dry. Psychiatric: Anxious and excited. Palliative Assessments Functional Status: Palliative Performance Score (PPS) Currently: 60% (Reduced ambulation, unable hobby/housework with significant disease, occas ional assistance necessary, normal or reduced intake, full or confusion conscious level) REFERRALS Referrals made: none. COMMUNICATION/DOCUMENTATION: This care plan is based on collaboration with the patient, her son, attending physician Total time of approximately 44 minutes ([id number] = 10 min face to face; [id number]) was spe nt with the patient and/or patient's family, and/or on the patient's floor/unit, of which mo re than 50% was spent counseling and/or coordination the patient's care as outlined above. Topics Discussed: See discussion notes under Discussion and Plan section. Electronically signed by: PRABHJOT Perez, 02/08/2020 9:54 AM NICOLE: AFTT - adult failure to thrive PARACHUTE PANEL JOINER - advanced registered nurse practitioner BiPAP - bilevel positive airway pressure BP- blood pressure CN-cranial nerves CPAP-continuous positive airway pressure dc'd - discharged or discontinued EOMI-extraocular movement intact HR-heart rate HSM-hepatosplenomegaly LE-lower extremity - doctor of medicine [id number] saturation PERRLA-pupils equal, round, reactive to light and accommodation RR-respiratory rate S1 S2- 1st and 2nd heart sounds T-temperature JVD-jugular vein distension Chace Gusman MD - 02/07/2020 1:39 PM PDT [facility] HOSPITALIST PROGRESS NOTE Patient: Ángela Crowley : 1930: Age: 89 y.o. MedRec: [id number] PCP: Candido Link MD Admission date: 01/31/2020 Hospital day # : 7 Physician author: Chace Higuera MD Today: 02/07/2020 Assessment and Hospital Course Active Hospital Problems Diagnosis Acute metabolic encephalopathy Pressure injury of deep tissue of sacral region Acute systolic congestive heart failure Acute respiratory failure with hypoxia Gastroenteritis Resolved Hospital Problems No resolved problems to display. 89F PMHx COPD on 2-3L NC Home O2, TAVR, CHFpEF, presented from home with acute metabolic en cephalopathy 2/2 medications vs infectious process. Treating for pneumonia seen on CT chest. UA positive for UTI. Possible evidence Plan #Acute metabolic encephalopathy, stable Unclear etiology, possible medication induced, infectious, CHF history, per notes is baseli ne lucid and oriented. On 01/31 patient is Alert but oriented x1 not to place or time. Passed FRONT OFFICE REPRESENTATIVE evaluation with dysphagia diet ordered on 01/31 COVID 19 test negative on 01/30 CT head/chest/abd/pelvis identified small right pleural effusion with possible infection pr esent that can be possible pneumonia. No clear signs of acute abdominal infection. No acute intracranial abnormalities 02/06: mental status slowly improved, can feed self up to chair, pain improved -norco PRN for pain -delirium precautions -Increased lexapro from 5mg to 10mg daily on 02/05 -treating infectious causes, likely 2/2 cellulitis 2/2 sacral decubitus ulcer, continue PO abx as below #Sepsis 2/2 Sacral Decubitous, Stage 3, infected #Leukocytosis 2/2 sepsis 2/2 chronic steroid Initial differentials on admission included gastroenteritis, pneumonia, UTI, and cellulitis of sacral decub. Repeat CXR no sign of pneumonia (with no cough or SOB), UCx grew yeast of undetermined significance, and Cdiff and stool pathogens negative. Source of sepsis likely 2 /2 cellulitis surrounding sacral decub ulcer. Wound cultures grew MRSA. Has received initial ly levaquin switched to vanc unasyn then switched to bactrim on 02/05. Afebrile since admissio n. -Continue wound care -Continue bactrim (started 02/05) -trend CBC -supportive care, zofran PRN #Hx of COPD, not in acute exacerbation Home O2 is 2-3L NC currently on home O2 on evaluation. Has history of prior MRSA PNA. 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 troponins stable, no chest pain during admission. 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 Repeat BNP 02/01 635 Changed lasix 20IV BID to 20 PO BID on 02/01, clinically euvolemic, lasix 20mg PO BID is mayela e dose, on 02/05 changed to lasix 20mg PO Daily, tolerating lasix 20mg daily well on 02/06 02/05, continued fine crackles -Continue lasix 20mg PO Daily -Continue coreg -Continue aspirin/statin -Trend I/Os, daily weights #Anemia, iron deficiency Iron Low, no sign of bleeding, likely chronic. Hgb 7.4->7.5, stable, will f/u Hgb in am. -ferrous sulfate BID #Hypernatremia 150->149->146->151->149->146->146, improved with 50ml/hr D5W as patient has poor PO intake, given fine crackles on exam holding further IVFs today and will continue PO intake with ass ist. -restarted D5W on 02/05, f/u Na noon and daily #Esophageal dysphagia #New diagnosis of achalasia Found to have significant dysphagia on FRONT OFFICE REPRESENTATIVE evaluation. Will require upper GI workup per FRONT OFFICE REPRESENTATIVE . Recommend reflux precautions and puree diet. Will d/w GI for possible EGD and esophagram f or motility. EGD was last done 08/2019 with no evidence of cause of dysphagia. Given previou s evaluation, the patient could benefit from manometry outpatient and would not benefit from repeat EGD at this time. Recommended esophagram while inpatient. 02/02 Esophagram shows lower esophageal sphincter spasm likely related to achalasia. D/w Dr. Sydney PEREZ and next step would be to perform manometry as outpatient for confirmation of bhavani lasia and to approach treatment as outpatient. -Continue dysphagia diet -f/u outpatient #FAITH, resolved Improved, continue to monitor daily #malnutrition I attest that this clinical assessment using ASPEN criteria 1 is accurate for this patient and supports that as a medical diagnosis. A specific nutrition treatment plan will be imple mented as outlined in the registered dietitian's plan of care. Nutrition Diagnosis: Severe protein-calorie malnutrition Type, Severe: Chronic illness Weight Loss: Greater than 7.5% in 3 months (8% unintended weight loss, BMI 17.95) Energy Intake: Less than or equal to 50% of estimated energy intake compared to needs in gr eater than or equal to 5 days (eating 10-45% of dysphagia diet since admit) Body Fat: Moderate depletion Muscle Mass: Severe depletion DVT PPx: Hold AC for low hgb GI PPx: pepcid Diet: puree diet, 1800ml fluid restriction, Na 2gm Dispo: Continue PT/OT. Recommend SNF vs home hospice on discharge, unsafe for discharge mayela e as she requires full assist, considering home hospice. Son of note does not want patient t o go to SNF and wants patient discharged to home will discuss either with home health or hos pice. Goals of care: Patient's son requests to consider home hospice on discharge, placed palliative care consul t. Will continue antibiotics and supportive care for infections until decision for transitio n to comfort care is made. Patient currently full code. Chace Higuera MD 02/07/2020 1:39 PM [facility] Subjective CC Asking for more blankets and coffee this am. Around lunch time up to chair feeding herself which is an improvement. ROS See above Objective Exam General NAD, AOx1, not place or time Cardiac RRR, no murmurs rubs or gallups Extremities No edema Continued Sacral decubitous stage 3. surrounding erythema Lung Fine crackles auscultated in mid and lower lobes bilaterally. Normal respiratory rate on 2L NC Abdominal Soft, Nontender, nondistended, NBS Neuro NFND, generalized weakness otherwise 5/5 Serial weights: Filed Weights: 01/31/20 0838 02/01/20 0500 02/02/20 0442 02/03/20 0400 Weight: 53.5 kg (117 lb 15.1 oz) 51.9 kg (114 lb 6.4 oz) 50.1 kg (110 lb 7.2 oz) 50.4 kg (1 11 lb 3.2 oz) 02/04/20 0307 02/05/20 0358 02/06/20 0456 02/07/20 0035 Weight: 50.7 kg (111 lb 12.4 oz) 50.9 kg (112 lb 4.8 oz) 50.4 kg (111 lb 1.8 oz) 50.9 kg (1 12 lb 3.4 oz) Most recent weight: Input and output 2 shifts and 3 shifts: Wt Readings from Last 1 Encounters: 02/07/20 50.9 kg (112 lb 3.4 oz) I/O last 24 Hours: In: 1306 [P.O.:770; I.V.:536] Out: 1100 [Urine:1100] I/O last 3 completed shifts: In: 1656 [P.O.:1120; I.V.:536] Out: 1650 [Urine:1650] Vitals Ranges: Temp: [36.2 C (97.2 F)-37.1 C (98.8 F)] 37 C (98.6 F) Pulse: [86-106] 86 Resp: [20-40] 22 BP: (100-155)/(54-79) 100/54 Vitals: Temp: 37 C (98.6 F) BP: 100/54 Pulse: 86 Resp: 22 SpO2: 95 % SpO2 95 % on nasal cannula at flow rate 2L/min Diet and Supplements Diet Diet general; puree; thin liquids allowed; sodium restricted 2 gm; 1800 ml fluid; Effectiv e Now Number of Occurrences: Until Specified Order Comments: Red tray 1:1 International Dysphagia Diet Standardization Initiative (IDD SI): Ángela is currently at Food Level 4, Pureed (formerly dysphagia pureed) and Drink Level 0, Thin. Thin. Order Questions: Type Diet general Texture modifications puree Fluid consistency modifications thin liquids allowed sodium restictions sodium restricted 2 gm fluid volume restictions 1800 ml fluid Nourishments Dietary nutrition supplements Boost; 1 Can Number of Occurrences: Until Specified Order Comments: With meals Order Questions: Supplement Boost Volume: 1 Can Objective Data Allergies: Allergies Allergen Reactions Flagyl [Metronidazole] Nausea And Vomiting and GI Upset Percocet [Oxycodone] Unknown Pregabalin Unknown Lyrica Current Medications: Current Facility-Administered Medications Medication Dose Route Frequency Provider Last Rate Last Dose acetaminophen (TYLENOL) tablet 650 mg 650 mg Oral Q6H PRN Félix Gan MD 650 mg at 02/03/20 0646 albuterol-ipratropium 2.5-0.5 mg/3 mL nebulizer solution 3 mL 3 mL Nebulization RT Q4H PRN Chace Higuera MD albuterol-ipratropium 2.5-0.5 mg/3 mL nebulizer solution 3 mL 3 mL Nebulization RT Q6H Aida Mills MD 3 mL at 02/07/20 0943 atorvaSTATin (LIPITOR) tablet 20 mg 20 mg Oral Nightly Aida Mills MD 20 mg at 12/23 brimonidine (ALPHAGAN) 0.2% ophthalmic solution 1 drop 1 drop Both Eyes BID Aida hernandez MD 1 drop at 02/07/20 0907 budesonide (PULMICORT) nebulizer solution 0.5 mg 0.5 mg Nebulization RT BID Aida hernandez MD 0.5 mg at 02/07/20 0930 carvedilol (COREG) tablet 3.125 mg 3.125 mg Oral BID Aida Mills MD 3.125 mg at 02/07/20 0859 dorzolamide (TRUSOPT) 2% ophthalmic solution 1 drop 1 drop Both Eyes BID Aida Mills MD 1 drop at 02/07/20 0907 escitalopram (LEXAPRO) tablet 10 mg 10 mg Oral Daily Chace Higuera MD 10 mg a t 02/07/20 0859 famotidine (PEPCID) injection 20 mg 20 mg Intravenous Daily Aida Mills MD 20 mg at 02/07/20 0901 ferrous sulfate tablet 325 mg 325 mg Oral BID Chace Higuera MD 325 mg at 0 02/07/20 0859 furosemide (LASIX) tablet 20 mg 20 mg Oral Daily Chace Higuera MD 20 mg at 0859 HYDROcodone-acetaminophen (NORCO) 5-325 mg per tablet 1-2 tablet 1-2 tablet Oral Q6H P RN Chace Higuera MD 1 tablet at 02/07/20 1023 lactobacillus GG (CULTURELLE) capsule 1 capsule 1 capsule Oral BID Aida Mills MD 1 capsule at 02/07/20 0859 latanoprost (XALATAN) 0.005% ophthalmic solution 1 drop 1 drop Both Eyes Nightly Gagandeep Mills MD 1 drop at 02/06/20 2118 ondansetron (ZOFRAN) injection 4 mg 4 mg Intravenous Q6H PRN Aida Mills MD predniSONE (DELTASONE) tablet 10 mg 10 mg Oral Daily Chace Higuera MD 10 mg a t 02/07/20 0859 sulfamethoxazole-trimethoprim (BACTRIM DS) 800-160 mg per tablet 1 tablet 1 tablet Ora l BID Chace Higuera MD 1 tablet at 02/07/20 0859 Current Infusions: Hematology and anemia Recent Labs Lab 02/07/20 1245 02/07/20 0545 02/06/20 0510 WBC 12.8* 15.1* 12.9* HGB 7.5* 7.4* 8.0* HCT 25.4* 23.8* 26.6* PLT 135* 109* 136* NEUPCT 89.4* 78.3 78.0 No results for input(s): PROTIME, INR, PTT in the last 168 hours. Recent Labs Lab 02/05/20 1024 02/05/20 0628 IRON -- 23* TIBC -- 108* PCTSAT -- 21.3 FERRITIN -- 186 QFNPTHBG89 -- 976* FOLATE 8.8 -- Inflammatory markers No results for input(s): LACTATE, PROCALCITONI, CRP, ESR in the last 168 hours. Chemistry Recent Labs Lab 02/07/20 0545 02/06/20 1156 02/06/20 0510 02/05/20 0628 GLU 80 -- 82 -- 88 NA 143 145 146* < > 146* K 4.2 -- 3.7 -- 3.4 CL 109* -- 111* -- 111* CO2 31 -- 33* -- 32* ANIONGAP 3 -- 2* -- 3 BUN 19 -- 21 -- 22 CREA 0.66 -- 0.60 -- 0.63 GFRNONAA >60 -- >60 -- >60 CALCIUM 7.4* -- 7.7* -- 7.4* < > = values in this interval not displayed. Recent Labs Lab 02/07/20 0545 02/06/20 0510 02/05/20 0628 MG 2.0 1.9 1.8 No results for input(s): AMYLASE, LIPASE in the last 168 hours. No results for input(s): TRIG, CHOL, HDL, LDL in the last 168 hours. No results for input(s): AMMONIA in the last 168 hours. Cardiology & Digoxin Recent Labs Lab 02/02/20 0640 01/31/20 2107 01/31/20 1721 TROPONIN -- 0.07* 0.07* BNP 635* -- -- ABG No results for input(s): PHART, PO2ART, BDH2IKX, SZU2CGQ, BEART, [id number] in the last 168 h ours. No results for input(s): SPECSOURCE, PHPOCB, PCO2, PO2, HCO3, TCO2, BEART, [id number] in the last 168 hours. Drug of overdose and abuse No results for input(s): ALCOHOL, ACTMN, SALICYLATE in the last 168 hours. No results for input(s): AMPHEQUAL, BARBITURATE, BENZSCR, CANNIBSCR, AMPHETAMINE, METHADSCR , OPIATESCR in the last 168 hours. Urinalysis Recent Labs Lab 02/02/20 0344 GLUCOSEU Negative WBCUA >100* RBCUA 25-50* SQUAMEPIUA 5-10* BACTERIAUA 1+* Point of care glucose No results for input(s): POCGLU in the last 168 hours. Micro results more choices using dot micro (below is last 7 days) Microbiology Results (Last 7) Date with Culture/Sensitivity) Procedure Component Value Units Date/Time Culture, Wound, Smear, w/Anaerobe [[id number]] Collected: 02/03/20 1113 Order Status: Sent Lab Status: In process Updated: 02/05/20 1225 Specimen: Tissue from Vertebrae, Sacral Narrative: The following orders were created for panel order Culture, Wound, Smear, w/Anaerobe. Procedure Abnormality Status --------- ------ Culture, Wound, Smear[[id number]] Final result Culture, Anaerobic[[id number]] Normal Preliminary result Please view results for these tests on the individual orders. Culture, Wound, Smear [[id number]] (Susceptibility) Collected: 02/03/20 1113 Order Status: Completed Lab Status: Final result Updated: 02/05/20 1229 Specimen: Tissue from Vertebrae, Sacral Culture 4+ Staphylococcus aureus,Methicillin resistant (MRSA) Comment: *INFECTION PREVENTION ALERT - MRSA* CONTACT PRECAUTIONS REQUIRED. Gram Stain Result No white blood cells (PMNs) seen 1+ Epithelial cells 2+ Gram positive cocci Susceptibility Staphylococcus aureus,Methicillin resistant (MRSA) (1) Antibiotic Interpretation Microscan Method Status Ciprofloxacin Resistant >=8 ug/mL Not Specified Final Clindamycin Resistant >=4 ug/mL Not Specified Final Erythromycin Resistant >=8 ug/mL Not Specified Final Gentamicin Sensitive <=0.5 ug/mL Not Specified Final Levofloxacin Resistant >=8 ug/mL Not Specified Final Linezolid Sensitive 2 ug/mL Not Specified Final Minocycline Sensitive <=0.5 ug/mL Not Specified Final Moxifloxacin Resistant >=8 ug/mL Not Specified Final Oxacillin Resistant >=4 ug/mL Not Specified Final Penicillin G Resistant >=0.5 ug/mL Not Specified Final Rifampin Sensitive <=0.5 ug/mL Not Specified Final Rifampin should not be used alone for chemotherapy. Tetracycline Sensitive <=1 ug/mL Not Specified Final Tigecycline Sensitive <=0.12 ug/mL Not Specified Final Trimethoprim + Sulfamethoxazole Sensitive <=10 ug/mL Not Specified Final Vancomycin Sensitive 1 ug/mL Not Specified Final Culture, Anaerobic [[id number]] (Normal) Collected: 02/03/20 1113 Order Status: Completed Lab Status: Preliminary result Updated: 02/06/20 1309 Specimen: Tissue from Vertebrae, Sacral Culture Culture in progress... Culture, Urine [[id number]] Collected: 02/02/20 0344 Order Status: Completed Lab Status: Final result Updated: 02/05/20 1228 Specimen: Urine, Unspecified Source Culture >100,000 CFU/ml Roxanna albicans Stool Pathogens, NAAT [[id number]] (Normal) Collected: 02/01/20 0901 Order Status: Completed Lab Status: Final result Updated: 02/01/20 1444 Specimen: Stool Campylobacter, NAAT Not Detected Salmonella, NAAT Not Detected Shigella NAAT Not Detected Vibrio, NAAT Not Detected Yersinia enterocolitica, NAAT Not Detected Shigatoxin 1 Not Detected Shigatoxin 2 Not Detected Clostridioides difficle NAAT reflex to Tox Ag [[id number]] Collected: 02/01/20 0901 Order Status: Completed Lab Status: Final result Updated: 02/01/20 1210 Specimen: Stool Narrative: The following orders were created for panel order Clostridioides difficle NAAT reflex to T ox Ag. Procedure Abnormality Status --------- ------ Clostridioides difficile...[[id number]] Final result Please view results for these tests on the individual orders. Clostridioides difficile NAAT Reflex [[id number]] Collected: 02/01/20 0901 Order Status: Completed Lab Status: Final result Updated: 02/01/20 1210 Specimen: Stool C. difficile, Interp Negative Comment: No Toxigenic C. difficile detected. Consider other causes of Diarrhea. Repeat te sting should not be performed within 7 days. C. difficile, NAAT Negative Culture, Blood [[id number]] Collected: 01/31/20 1721 Order Status: Completed Lab Status: Final result Updated: 02/05/20 1731 Specimen: Blood from Line Culture No growth after 5 days incubation. Influenza A and B RNA, NAAT [[id number]] (Normal) Collected: 01/31/20 1514 Order Status: Completed Lab Status: Final result Updated: 01/31/20 1557 Specimen: Tissue from Nasopharynx Influenza A PCR Negative Influenza B PCR Negative Respiratory pathogen panel, NAAT [[id number]] (Normal) Collected: 01/31/20 1513 Order Status: Completed Lab Status: Final result Updated: 01/31/20 1804 Specimen: Body Fluid from Nasopharynx Parainfluenza 1 Not Detected Adenovirus Not Detected Human Metapneumovirus Not Detected Rhinovirus/Enterovirus Not Detected Parainfluenza 3 Not Detected Radiology results (more choices using dot risresults) No results found. Reference. This is NOT part of the patient's formal assessment section. In the assessment or plan section of notes the author may date some of the subsections with a number such as "" or "" to indicate the date of that entry or event. In the example below the 1st line is the original entry and the subsequent lines indicate flowing updates to the subsection: Example assessment subsection (such as CHF or CP or Pneumonia) Patient is improved today with resolution of symptoms Worse with recurrence of symptoms requiring further testing Portions of this chart may have been created with [employer] voice recognition software. Occasi onal wrong-word or sound-alike substitutions may have occurred due to the inherent owen itations of voice recognition software. Please read the chart carefully and recognize, using context, where these substitutions have occurred erry, Chace hobson MD - 02/06/2020 8:05 AM PDTFormatting of this note might be different from the origin al. [place] HOSPITALIST PROGRESS NOTE Patient: Ángela Crowley : 1930: Age: 89 y.o. MedRec: [id number] PCP: Candido Link MD Admission date: 01/31/2020 Hospital day # : 6 Physician author: Chace Higuera MD Today: 02/06/2020 Assessment and Hospital Course Active Hospital Problems Diagnosis Acute metabolic encephalopathy Pressure injury of deep tissue of sacral region Acute systolic congestive heart failure Acute respiratory failure with hypoxia Gastroenteritis Resolved Hospital Problems No resolved problems to display. 89F PMHx COPD on 2-3L NC Home O2, TAVR, CHFpEF, presented from home with acute metabolic en cephalopathy 2/2 medications vs infectious process. Treating for pneumonia seen on CT chest. UA positive for UTI. Possible evidence Plan #Acute metabolic encephalopathy, stable Unclear etiology, possible medication induced, infectious, CHF history, per notes is baseli ne lucid and oriented. On 01/31 patient is Alert but oriented x1 not to place or time. Passed FRONT OFFICE REPRESENTATIVE evaluation with dysphagia diet ordered on 01/31 COVID 19 test negative on 01/30 CT head/chest/abd/pelvis identified small right pleural effusion with possible infection pr esent that can be possible pneumonia. No clear signs of acute abdominal infection. No acute intracranial abnormalities By 02/05, Likely at baseline mental status at this time with history of dementia. -norco PRN for pain -delirium precautions -Increased lexapro from 5mg to 10mg daily -treating infectious causes, likely cellulitis and infection 2/2 sacral decubitus ulcer #Sepsis 2/2 Sacral Decubitous, Stage 3, infected #Leukocytosis 2/2 sepsis 2/2 chronic steroid Initial differentials on admission included gastroenteritis, pneumonia, UTI, and cellulitis of sacral decub. Repeat CXR no sign of pneumonia (with no cough or SOB), UCx grew yeast of undetermined significance, and Cdiff and stool pathogens negative. Source of sepsis likely 2 /2 cellulitis surrounding sacral decub ulcer. Wound cultures grew MRSA. Has received initial ly levaquin switched to vanc unasyn then switched to bactrim on 02/05. Afebrile since admissio n. -Continue wound care -Continue bactrim (started 02/05) -trend CBC -supportive care, zofran PRN #Hx of COPD, not in acute exacerbation Home O2 is 2-3L NC currently on home O2 on evaluation. Has history of prior MRSA PNA. 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 troponins stable, no chest pain during admission. 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 Repeat BNP 02/01 635 Changed lasix 20IV BID to 20po BID on 02/01, clinically euvolemic, lasix 20mg PO BID is home dose, on 02/05 changed to lasix 20mg PO Daily 02/05, continued fine crackles Continue coreg Continue aspirin/statin Trend I/Os, daily weights #Anemia Iron Low, no sign of bleeding, likely chronic. Hgb stable 8.0 from 7.5 -ferrous sulfate BID #Hypernatremia 150->149->146->151->149->146->146, improved with 50ml/hr D5W as patient has poor PO intake, given fine crackles on exam holding further IVFs today and will continue PO intake with ass ist. -restarted D5W on 02/05, f/u Na noon and daily #Esophageal dysphagia #New diagnosis of achalasia Found to have significant dysphagia on FRONT OFFICE REPRESENTATIVE evaluation. Will require upper GI workup per FRONT OFFICE REPRESENTATIVE . Recommend reflux precautions and puree diet. Will d/w GI for possible EGD and esophagram f or motility. EGD was last done 08/2019 with no evidence of cause of dysphagia. Given previou s evaluation, the patient could benefit from manometry outpatient and would not benefit from repeat EGD at this time. Recommended esophagram while inpatient. 02/02 Esophagram shows lower esophageal sphincter spasm likely related to achalasia. D/w Dr. Sydney PEREZ and next step would be to perform manometry as outpatient for confirmation of bhavani lasia and to approach treatment as outpatient. -Continue dysphagia diet -f/u outpatient #FIATH, resolved Improved, continue to monitor daily #malnutrition I attest that this clinical assessment using ASPEN criteria 1 is accurate for this patient and supports that as a medical diagnosis. A specific nutrition treatment plan will be imple mented as outlined in the registered dietitian's plan of care. Nutrition Diagnosis: Severe protein-calorie malnutrition Type, Severe: Chronic illness Weight Loss: Greater than 7.5% in 3 months (8% unintended weight loss, BMI 17.95) Energy Intake: Less than or equal to 50% of estimated energy intake compared to needs in gr eater than or equal to 5 days (eating 10-45% of dysphagia diet since admit) Body Fat: Moderate depletion Muscle Mass: Severe depletion DVT PPx: heparin subq GI PPx: pepcid Diet: puree diet, 1800ml fluid restriction, Na 2gm Dispo: Continue PT/OT. Recommend SNF vs home hospice on discharge, unsafe for discharge mayela e as she requires full assist, considering home hospice. Son of note does not want patient t o go to SNF. Goals of care: Patient's son requests to consider home hospice on discharge, placed palliative care consul t. Will continue antibiotics and supportive care for infections until decision for transitio n to comfort care is made. Patient currently full code Chace Higuera MD 02/06/2020 8:05 AM [facility] Subjective CC Complaint of feeling cold this am but much improved anxiety from previous ams. Does not com plain of pain this am. Afebrile overnight, tolerating antibiotics. No diarrhea/constipation, no nausea/vomiting. Sodium continued slight elevation giving light fluids (D5W) today. ROS See above Objective Exam General Anxious, AOx1, not to place or time, frail appearance Cardiac tachycardic, no murmurs rubs or gallups Extremities No edema No left shoulder tenderness on palpation, pain with manipulation of left shouylder Continued Sacral decubitous stage 3 with some white discharge noted, surrounding erythema Lung Fine crackles auscultated in mid and lower lobes bilaterally. Tachypnea on 2L NC Abdominal Soft, Nontender, nondistended Neuro NFND, generalized weakness otherwise 5/5 Serial weights: Filed Weights: 01/31/20 0838 02/01/20 0500 02/02/20 0442 02/03/20 0400 Weight: 53.5 kg (117 lb 15.1 oz) 51.9 kg (114 lb 6.4 oz) 50.1 kg (110 lb 7.2 oz) 50.4 kg (1 11 lb 3.2 oz) 02/04/20 0307 02/05/20 0358 02/06/20 0456 Weight: 50.7 kg (111 lb 12.4 oz) 50.9 kg (112 lb 4.8 oz) 50.4 kg (111 lb 1.8 oz) Most recent weight: Input and output 2 shifts and 3 shifts: Wt Readings from Last 1 Encounters: 02/06/20 50.4 kg (111 lb 1.8 oz) I/O last 24 Hours: In: 732 [P.O.:350; I.V.:382] Out: 550 [Urine:550] I/O last 3 completed shifts: In: 1562 [P.O.:718; I.V.:744; IV Piggyback:100] Out: 1300 [Urine:1300] Vitals Ranges: Temp: [36.2 C (97.2 F)-36.8 C (98.2 F)] 36.2 C (97.2 F) Pulse: [90-114] 98 Resp: [20-36] 20 BP: (135-171)/(62-92) 148/80 Vitals: Temp: 36.2 C (97.2 F) BP: 148/80 Pulse: 98 Resp: 20 SpO2: 97 % SpO2 97 % on nasal cannula at flow rate 2L/min Diet and Supplements Diet Diet general; puree; thin liquids allowed; sodium restricted 2 gm; 1800 ml fluid; Effectiv e Now Number of Occurrences: Until Specified Order Comments: Red tray 1:1 International Dysphagia Diet Standardization Initiative (IDD SI): Ángela is currently at Food Level 4, Pureed (formerly dysphagia pureed) and Drink Level 0, Thin. Thin. Order Questions: Type Diet general Texture modifications puree Fluid consistency modifications thin liquids allowed sodium restictions sodium restricted 2 gm fluid volume restictions 1800 ml fluid Nourishments Dietary nutrition supplements Boost; 1 Can Number of Occurrences: Until Specified Order Comments: With meals Order Questions: Supplement Boost Volume: 1 Can Objective Data Allergies: Allergies Allergen Reactions Flagyl [Metronidazole] Nausea And Vomiting and GI Upset Percocet [Oxycodone] Unknown Pregabalin Unknown Lyrica Current Medications: Current Facility-Administered Medications Medication Dose Route Frequency Provider Last Rate Last Dose acetaminophen (TYLENOL) tablet 650 mg 650 mg Oral Q6H PRN Félix Gan MD 650 mg at 02/03/20 0646 albuterol-ipratropium 2.5-0.5 mg/3 mL nebulizer solution 3 mL 3 mL Nebulization RT Q4H PRN Chace Higuera MD albuterol-ipratropium 2.5-0.5 mg/3 mL nebulizer solution 3 mL 3 mL Nebulization RT Q6H Aida Mills MD 3 mL at 02/05/202105 ampicillin-sulbactam (UNASYN) 3 g in sodium chloride 0.9% 100 mL IVPB 3 g Intravenous Q8H Chace Higuera MD 200 mL/hr at 02/06/20 0057 3 g at 02/06/2056 atorvaSTATin (LIPITOR) tablet 20 mg 20 mg Oral Nightly Aida Mills MD 20 mg at 11/25 brimonidine (ALPHAGAN) 0.2% ophthalmic solution 1 drop 1 drop Both Eyes BID Aida hernandez MD 1 drop at 02/05/202054 budesonide (PULMICORT) nebulizer solution 0.5 mg 0.5 mg Nebulization RT BID Aida hernandez MD 0.5 mg at 02/05/202105 carvedilol (COREG) tablet 3.125 mg 3.125 mg Oral BID WC Aida Mills MD 3.125 mg at 02/05/20 1643 dextrose 5% (D5W) infusion Intravenous Continuous Chace Higuera MD dorzolamide (TRUSOPT) 2% ophthalmic solution 1 drop 1 drop Both Eyes BID Aida Mills MD 1 drop at 02/05/20 2100 escitalopram (LEXAPRO) tablet 10 mg 10 mg Oral Daily Chace Higuera MD famotidine (PEPCID) injection 20 mg 20 mg Intravenous Daily Aida Mills MD 20 mg at 02/05/20 0840 furosemide (LASIX) tablet 20 mg 20 mg Oral Daily Chace Higuera MD HYDROcodone-acetaminophen (NORCO) 5-325 mg per tablet 1-2 tablet 1-2 tablet Oral Q6H P RN Chace Higuera MD 1 tablet at 02/05/20 2358 lactobacillus GG (CULTURELLE) capsule 1 capsule 1 capsule Oral BID Aida Mills MD 1 capsule at 02/05/20 2043 latanoprost (XALATAN) 0.005% ophthalmic solution 1 drop 1 drop Both Eyes Nightly Gagandeep Mills MD 1 drop at 02/05/20 2104 ondansetron (ZOFRAN) injection 4 mg 4 mg Intravenous Q6H PRN Aida Mills MD predniSONE (DELTASONE) tablet 10 mg 10 mg Oral Daily Chace Higuera MD 10 mg a t 02/05/20 0841 vancomycin 1 g in sodium chloride 0.9% 250 mL IVPB 1 g Intravenous Q24H Ina durham, PharmD 166.7 mL/hr at 02/05/20 1230 1 g at 02/05/20 1230 vancomycin per pharmacy Other Pharmacy Consult Chace Higuera MD Current Infusions: dextrose 5% Hematology and anemia Recent Labs Lab 02/06/20 0510 02/05/20 1024 02/05/20 0628 02/04/20 0629 WBC 12.9* -- 11.5* 14.1* HGB 8.0* 7.8* 7.5* 7.9* HCT 26.6* 25.4* 24.9* 25.9* PLT 136* -- 116* 139* NEUPCT 78.0 -- 80.9 84.2* Recent Labs Lab 01/31/20 09 PROTIME 14.6* INR 1.1 Recent Labs Lab 02/05/20 06 IRON 23* TIBC 108* PCTSAT 21.3 Inflammatory markers Recent Labs Lab 01/31/20 09 LACTATE 1.0 PROCALCITONI 0.23 CRP 99.10* Chemistry Recent Labs Lab 02/06/20 0510 02/05/20 1024 02/05/20 0628 02/04/20 0629 01/31/20 09 GLU 82 -- 88 -- 84 < > 97 NA 146* 146* 146* < > 151* < > 144 K 3.7 -- 3.4 -- 3.6 < > 3.6 CL 111* -- 111* -- 115* < > 108* CO2 33* -- 32* -- 31 < > 30 ANIONGAP 2* -- 3 -- 5 < > 6 BUN 21 -- 22 -- 23 < > 39* CREA 0.60 -- 0.63 -- 0.73 < > 1.06* GFRNONAA >60 -- >60 -- >60 < > 49* CALCIUM 7.7* -- 7.4* -- 7.9* < > 7.8* ALBUMIN -- -- -- -- -- -- 2.5* TOTALPROTEIN -- -- -- -- -- -- 5.1* BILITOT -- -- -- -- -- -- 0.6 ALKPHOS -- -- -- -- -- -- 132* ALT -- -- -- -- -- -- 12 AST -- -- -- -- -- -- 21 < > = values in this interval not displayed. Recent Labs Lab 02/06/2050902/05/2062702/04/20 06 MG 1.9 1.8 1.9 Recent Labs Lab 01/31/20 09 LIPASE 16 No results for input(s): TRIG, CHOL, HDL, LDL in the last 168 hours. No results for input(s): AMMONIA in the last 168 hours. Cardiology & Digoxin Recent Labs Lab 02/02/20 0640 01/31/20 2107 01/31/20 1721 01/31/20 0907 TROPONIN -- 0.07* 0.07* 0.09* BNP 635* -- -- 850* ABG No results for input(s): PHART, PO2ART, QPS6AWL, TJQ4MRV, BEART, [id number] in the last 168 h ours. No results for input(s): SPECSOURCE, PHPOCB, PCO2, PO2, HCO3, TCO2, BEART, [id number] in the last 168 hours. Drug of overdose and abuse No results for input(s): ALCOHOL, ACTMN, SALICYLATE in the last 168 hours. No results for input(s): AMPHEQUAL, BARBITURATE, BENZSCR, CANNIBSCR, AMPHETAMINE, METHADSCR , OPIATESCR in the last 168 hours. Urinalysis Recent Labs Lab 02/02/20 0344 01/31/20 1220 GLUCOSEU Negative -- WBCUA >100* 0-2 RBCUA 25-50* 0-2 SQUAMEPIUA 5-10* 0-2 BACTERIAUA 1+* Negative Point of care glucose No results for input(s): POCGLU in the last 168 hours. Micro results more choices using dot micro (below is last 7 days) Microbiology Results (Last 7) Date with Culture/Sensitivity) Procedure Component Value Units Date/Time Culture, Wound, Smear, w/Anaerobe [[id number]] Collected: 02/03/201112 Order Status: Sent Lab Status: In process Updated: 02/05/201228 Specimen: Tissue from Vertebrae, Sacral Narrative: The following orders were created for panel order Culture, Wound, Smear, w/Anaerobe. Procedure Abnormality Status --------- ------ Culture, Wound, Smear[[id number]] Final result Culture, Anaerobic[[id number]] In process Please view results for these tests on the individual orders. Culture, Wound, Smear [[id number]] (Susceptibility) Collected: 02/03/201112 Order Status: Completed Lab Status: Final result Updated: 02/05/209 Specimen: Tissue from Vertebrae, Sacral Culture 4+ Staphylococcus aureus,Methicillin resistant (MRSA) Comment: *INFECTION PREVENTION ALERT - MRSA* CONTACT PRECAUTIONS REQUIRED. Gram Stain Result No white blood cells (PMNs) seen 1+ Epithelial cells 2+ Gram positive cocci Susceptibility Staphylococcus aureus,Methicillin resistant (MRSA) (1) Antibiotic Interpretation Microscan Method Status Ciprofloxacin Resistant >=8 ug/mL Not Specified Final Clindamycin Resistant >=4 ug/mL Not Specified Final Erythromycin Resistant >=8 ug/mL Not Specified Final Gentamicin Sensitive <=0.5 ug/mL Not Specified Final Levofloxacin Resistant >=8 ug/mL Not Specified Final Linezolid Sensitive 2 ug/mL Not Specified Final Minocycline Sensitive <=0.5 ug/mL Not Specified Final Moxifloxacin Resistant >=8 ug/mL Not Specified Final Oxacillin Resistant >=4 ug/mL Not Specified Final Penicillin G Resistant >=0.5 ug/mL Not Specified Final Rifampin Sensitive <=0.5 ug/mL Not Specified Final Rifampin should not be used alone for chemotherapy. Tetracycline Sensitive <=1 ug/mL Not Specified Final Tigecycline Sensitive <=0.12 ug/mL Not Specified Final Trimethoprim + Sulfamethoxazole Sensitive <=10 ug/mL Not Specified Final Vancomycin Sensitive 1 ug/mL Not Specified Final Culture, Anaerobic [[id number]] Collected: 02/03/20 1113 Order Status: Resulted Lab Status: In process Updated: 02/03/20 1118 Specimen: Tissue from Vertebrae, Sacral Culture, Urine [[id number]] Collected: 02/02/20 0344 Order Status: Completed Lab Status: Final result Updated: 02/05/20 1228 Specimen: Urine, Unspecified Source Culture >100,000 CFU/ml Roxanna albicans Stool Pathogens, NAAT [[id number]] (Normal) Collected: 02/01/20 0901 Order Status: Completed Lab Status: Final result Updated: 02/01/20 1444 Specimen: Stool Campylobacter, NAAT Not Detected Salmonella, NAAT Not Detected Shigella NAAT Not Detected Vibrio, NAAT Not Detected Yersinia enterocolitica, NAAT Not Detected Shigatoxin 1 Not Detected Shigatoxin 2 Not Detected Clostridioides difficle NAAT reflex to Tox Ag [[id number]] Collected: 02/01/20 0901 Order Status: Completed Lab Status: Final result Updated: 02/01/20 1210 Specimen: Stool Narrative: The following orders were created for panel order Clostridioides difficle NAAT reflex to T ox Ag. Procedure Abnormality Status --------- ------ Clostridioides difficile...[[id number]] Final result Please view results for these tests on the individual orders. Clostridioides difficile NAAT Reflex [[id number]] Collected: 02/01/20 0901 Order Status: Completed Lab Status: Final result Updated: 02/01/20 1210 Specimen: Stool C. difficile, Interp Negative Comment: No Toxigenic C. difficile detected. Consider other causes of Diarrhea. Repeat te sting should not be performed within 7 days. C. difficile, NAAT Negative Culture, Blood [[id number]] Collected: 01/31/20 1721 Order Status: Completed Lab Status: Final result Updated: 02/05/20 1731 Specimen: Blood from Line Culture No growth after 5 days incubation. Influenza A and B RNA, NAAT [[id number]] (Normal) Collected: 01/31/20 1514 Order Status: Completed Lab Status: Final result Updated: 01/31/20 1557 Specimen: Tissue from Nasopharynx Influenza A PCR Negative Influenza B PCR Negative Respiratory pathogen panel, NAAT [[id number]] (Normal) Collected: 01/31/20 1513 Order Status: Completed Lab Status: Final result Updated: 01/31/20 1804 Specimen: Body Fluid from Nasopharynx Parainfluenza 1 Not Detected Adenovirus Not Detected Human Metapneumovirus Not Detected Rhinovirus/Enterovirus Not Detected Parainfluenza 3 Not Detected Coronavirus (COVID-19) NAAT [[id number]] (Normal) Collected: 01/31/20 0947 Order Status: Completed Lab Status: Final result Updated: 01/31/20 194 Specimen: Tissue from Nasopharynx SARS coronavirus 2 NAAT Not Detected Comment: See Scanned Report [facility] STAT instructions for COVID-19 tracking [[id number]] Collected: 01/31/2047 Order Status: Completed Lab Status: Final result Updated: 01/31/201940 Specimen: Tissue from Nasopharynx [facility] COVID STAT instruction done Culture, Blood [[id number]] Collected: 01/31/20 0907 Order Status: Completed Lab Status: Final result Updated: 02/05/20 09 Specimen: Peripheral Blood Culture No growth after 5 days incubation. Radiology results (more choices using dot risresults) Xr Chest Ap Portable Result Date: 02/05/2020 CLINICAL INFORMATION: shortness of breath. COMPARISON: Radiograph and CT 01/31/2020. FINDING S: Portable frontal chest radiograph Lungs: No focal airspace disease, pleural effusion, or pneumothorax. Hyperexpansion of the lungs. Minimal opacities at the lung bases likely repres ent atelectasis. Chronic mild bronchial wall thickening again appreciated. Heart/mediastinum : Mild cardiomegaly. No tracheal deviation. Bones: No acute osseous abnormality appreciated. Bony demineralization. No acute cardiopulmonary disease. Hyperexpansion. Stable cardiomegaly. Dictated and Signed by: John Groves MD Electronically signed: 02/05/2020 5:12 PM Reference. This is NOT part of the patient's formal assessment section. In the assessment or plan section of notes the author may date some of the subsections with a number such as "" or "" to indicate the date of that entry or event. In the example below the 1st line is the original entry and the subsequent lines indicate flowing updates to the subsection: Example assessment subsection (such as CHF or CP or Pneumonia) Patient is improved today with resolution of symptoms 24 Worse with recurrence of symptoms requiring further testing Portions of this chart may have been created with [employer] voice recognition software. Occasi onal wrong-word or sound-alike substitutions may have occurred due to the inherent owen itations of voice recognition software. Please read the chart carefully and recognize, using context, where these substitutions have occurred Deedee Tamez PharmD - 02/05/2020 11:01 AM PDTFormatting of this note might be different from the origina l. VANCOMYCIN PER PHARMACY PROTOCOL: AMS/Drug Name - Vancomycin Patient: Ángela Crowley [id number] Admit: 01/31/2020 8:15 AM RELEVANT ALLERGIES: metronidazole (n/v, gi upset) 89 yrs old female patient admitted on 01/31/2020 for acute respiratory failure with hypoxia , acute systolic congestive heart failure, pressure injury of deep tissue of sacral region. Patient is receiving vancomycin starting on 02/03/20 for CAP and purulent SSTI of sacral decu bitous. Patient has a past medical history of Aortic stenosis, COPD (chronic obstructive pu lmonary disease) ([facility]), Coronary artery disease, Kidney stone, MRSA (methicillin resistant S taphylococcus aureus) (11/2019), Rheumatic fever, Tuberculosis, and Venereal disease. . Risk factors for MDR organisms include recent healthcare contact, recent antibiotic use, h/o [facility] [place]. HPI: presents with feelings of weakness, vomiting and increasing pain over her coccyx. This patient c/o abdominal cramping and has a large coccygeal/sacral decubitus that is causing h er significant pain. Antimicrobials - Current Antibiotic Dates of Therapy Vancomycin 02/02- Unasyn 02/02- Antimicrobials - Discontinued Antibiotic Dates of Therapy Levofloxacin 01/30-02/01 Historical Vancomycin dosing (previous & current encounter): 12/01/19-12/08/19 starting dos ing 1000 mg q24hr (scr 0.70) trough 12, dose increased to 600 mg q12hr (scr 0.58) troughs 17 , 18.8, 21.4, dose decreased to 500 mg q12hr (scr 0.69) discontinued before next trough Micro/Cultures/Diagnostics: Microbiology Results (Last 14 Days by Collected Date with Culture/Sensitivity) Procedure Component Value Units Date/Time Culture, Wound, Smear, w/Anaerobe [[id number]] Collected: 02/03/201112 Order Status: Sent Lab Status: In process Updated: 02/03/201117 Specimen: Tissue from Vertebrae, Sacral Narrative: The following orders were created for panel order Culture, Wound, Smear, w/Anaerobe. Procedure Abnormality Status --------- ------ Culture, Wound, Smear[[id number]] Preliminary result Culture, Anaerobic[[id number]] In process Please view results for these tests on the individual orders. Culture, Wound, Smear [[id number]] Collected: 02/03/201112 Order Status: Completed Lab Status: Preliminary result Updated: 02/04/20 0836 Specimen: Tissue from Vertebrae, Sacral Culture 4+ Staphylococcus aureus Comment: Presumptive identification Identification and susceptibility to follow. Gram Stain Result No white blood cells (PMNs) seen 1+ Epithelial cells 2+ Gram positive cocci Culture, Anaerobic [[id number]] Collected: 02/03/201112 Order Status: Resulted Lab Status: In process Updated: 04/30/20 1118 Specimen: Tissue from Vertebrae, Sacral Culture, Urine [[id number]] Collected: 02/02/20 0344 Order Status: Completed Lab Status: Preliminary result Updated: 02/04/20 1239 Specimen: Urine, Unspecified Source Culture >100,000 CFU/ml Yeast species Comment: Identification to follow. Stool Pathogens, NAAT [[id number]] (Normal) Collected: 02/01/20 0901 Order Status: Completed Lab Status: Final result Updated: 02/01/20 1444 Specimen: Stool Campylobacter, NAAT Not Detected Salmonella, NAAT Not Detected Shigella NAAT Not Detected Vibrio, NAAT Not Detected Yersinia enterocolitica, NAAT Not Detected Shigatoxin 1 Not Detected Shigatoxin 2 Not Detected Clostridioides difficle NAAT reflex to Tox Ag [[id number]] Collected: 02/01/20 0901 Order Status: Completed Lab Status: Final result Updated: 02/01/20 1210 Specimen: Stool Narrative: The following orders were created for panel order Clostridioides difficle NAAT reflex to T ox Ag. Procedure Abnormality Status --------- ------ Clostridioides difficile...[[id number]] Final result Please view results for these tests on the individual orders. Clostridioides difficile NAAT Reflex [[id number]] Collected: 02/01/20 0901 Order Status: Completed Lab Status: Final result Updated: 02/01/20 1210 Specimen: Stool C. difficile, Interp Negative Comment: No Toxigenic C. difficile detected. Consider other causes of Diarrhea. Repeat te sting should not be performed within 7 days. C. difficile, NAAT Negative Culture, Blood [[id number]] Collected: 01/31/20 1721 Order Status: Completed Lab Status: Preliminary result Updated: 02/03/20 1731 Specimen: Blood from Line Culture No growth: Monitored continually by instrument for 5 days Influenza A and B RNA, NAAT [[id number]] (Normal) Collected: 01/31/20 1514 Order Status: Completed Lab Status: Final result Updated: 01/31/20 1557 Specimen: Tissue from Nasopharynx Influenza A PCR Negative Influenza B PCR Negative Respiratory pathogen panel, NAAT [[id number]] (Normal) Collected: 01/31/20 1513 Order Status: Completed Lab Status: Final result Updated: 01/31/20 180 Specimen: Body Fluid from Nasopharynx Parainfluenza 1 Not Detected Adenovirus Not Detected Human Metapneumovirus Not Detected Rhinovirus/Enterovirus Not Detected Parainfluenza 3 Not Detected Coronavirus (COVID-19) NAAT [[id number]] (Normal) Collected: 01/31/20946 Order Status: Completed Lab Status: Final result Updated: 01/31/201941 Specimen: Tissue from Nasopharynx SARS coronavirus 2 NAAT Not Detected Comment: See Scanned Report [facility] STAT instructions for COVID-19 tracking [[id number]] Collected: 01/31/20946 Order Status: Completed Lab Status: Final result Updated: 01/31/201940 Specimen: Tissue from Nasopharynx [facility] COVID STAT instruction done Culture, Blood [[id number]] Collected: 01/31/20906 Order Status: Completed Lab Status: Final result Updated: 02/05/20920 Specimen: Peripheral Blood Culture No growth after 5 days incubation. Relevant cultures from previous admits: Date Source Organisms Sensitivities 12/03/19 Resp MRSA S: linezolid, minocycline, tetracycline, tigecycline, bactrim, vanco 11/24/19 resp Pseudomonas putida pansensitive 11/18/19 urine E. coli pansensitive Enterococcus faecalis pansensitive 08/21/19 urine Enterococcus faecium Sens: amp, pen, vanco E.coli pansensitive 07/21/19 resp Pseudomonas aeruginosa UA: 02/01 positive Admission Wt: Weight: 53.5 kg (117 lb 15.1 oz) Current Wt: Weight: 50.9 kg (112 lb 4.8 oz) Min/Max Temp past 24 hours:Temp Av.2 C (97.1 F) Min: 35.9 C (96.7 F) Max: 3 6.7 C (98.1 F) Estimated Creatinine Clearance: 49 mL/min (based on SCr of 0.63 mg/dL). Intake/Output Summary (Last 24 hours) at 02/05/2020 1101 Last data filed at 02/05/2020 0759 Gross per 24 hour Intake 1755 ml Output 750 ml Net 1005 ml Temp: [35.9 C (96.7 F)-36.7 C (98.1 F)] 36.2 C (97.2 F) Pulse: [83-104] 104 Resp: [18-24] 20 BP: (132-171)/(64-92) 171/92 Recent Labs Lab 02/05/20 0628 02/04/20 0629 02/03/20 0618 02/02/20 0640 02/01/20 0634 02/01/20 0520 01/31/20 0907 WBC 11.5* 14.1* 13.4* 13.6* -- 13.3* 14.3* CREA 0.63 0.73 0.89 0.94 0.93 -- 1.06* LACTATE -- -- -- -- -- -- 1.0 PROCALCITONI -- -- -- -- -- -- 0.23 CRP -- -- -- -- -- -- 99.10* Imagin/27 CXR: no acute findings 01/30 CT chest abdomen pelvis: 1. new but healing appearing fracture of the right inferior p ubic ramus compared with imaging of oct 27. No acute fracture is identified. 2. Chronic smal l dependent right pleural effusion with overall improved clustered nodularity and mucous plu gging in the lungs, favoring airway centered infection or inflammation. 3. Chronic, marked b iliary ductal dilation and prominence of the pancreatic duct. Consider follow-up non-emergen t mrcp if further characterization is desired. 4. Mildly prominent, fluid-filled small bowel in the left abdomen without evidence of obstruction. 5. Improved wall thickening and mesent lorena stranding in the rectosigmoid region. 6. Extensive vascular calcification with chronic enlargement of the main pulmonary artery, suggesting pulmonary arterial hypertension. 01/30 CT head: no evidence of acute intracranial disease. Date Time of Vancomycin draw Vancomycin result LEVEL or TROUGH Serum Creatinine CrCl (mL/mi n) Vanco load/bolus Vanco dose - current Vanco dose - new 02/02 - - - 0.89 34 - - 1000 mg q24hr 02/03 - - - 0.73 42 - 1000 mg q24hr - 02/04 - - - 0.63 49 - 1000 mg q24h - Assessment: Vancomycin Day # 3 Other antibiotics: Unasyn Target Trough: 15-20 mcg/ml for CAP and purulent SSTI of sacral decubitous WBC: leukcoytosis; Renal: SCr improved (baseline scr ~0.6); Temp: afebrile; Culture: 01/05 peripheral blood: ngtd, 01/30 covid neg, 01/30 resp panel neg, 01/30 flu neg, 01/30 blood from line: ngtd, 01/31 cdiff neg, 02/01 urine: >100,000 cfu/ml yeast sp, 02/02 tissue from vertebra e, sacral: 4+ staph aureus, anaerobe in process; 02/02 wound 4+ s.aureus; VS: hr occasionally >100; BP spiked @ 171/92 Renal function: UOP: 0.6 mL/kg/hr, stable Plan: 1. Vancomycin 1000 mg (~20 mg/kg) IVPB q24h 2. Vancomycin trough ordered for 02/06/20 @ 1100 (draw 60 minutes prior to hanging the 4th do se) 3. Serum creatinine DAILY for first 3 days, then at least every 3 days while on vancomycin. 4. Will monitor renal function, clinical status, infection markers daily with troughs and d ose adjustment as needed. Definitions: For the purpose of this protocol, "trough" means a steady state trough before the 4th dose of the initial/new dosing regimen and "level" means all other levels drawn including before the 3rd dose References: Vancomycin dosing protocol IDSA guidelines Pharmacist-Driven Procalcitonin Protocol Per P&T-approved Vancomycin Dosing and Monitoring Protocol Electronically signed by: Deedee Wilder PharmD 02/05/2020 11:01 AM Chace Gusman MD - 02/05/2020 8:48 AM PDTFormatting of this note might be different from the [facility] [place] HOSPITALIST PROGRESS NOTE Patient: Ángela Crowley : 1930: Age: 89 y.o. MedRec: [id number] PCP: Candido Link MD Admission date: 01/31/2020 Hospital day # : 5 Physician author: Chace Higuera MD Today: 02/05/2020 Assessment and Hospital Course Active Hospital Problems Diagnosis Acute metabolic encephalopathy Pressure injury of deep tissue of sacral region Acute systolic congestive heart failure Acute respiratory failure with hypoxia Gastroenteritis Resolved Hospital Problems No resolved problems to display. 89F PMHx COPD on 2-3L NC Home O2, TAVR, CHFpEF, presented from home with acute metabolic en cephalopathy 2/2 medications vs infectious process. Treating for pneumonia seen on CT chest. UA positive for UTI. Possible evidence Plan #Acute metabolic encephalopathy, stable Unclear etiology, possible medication induced, infectious, CHF history, per notes is baseli ne lucid and oriented. On 01/31 patient is Alert but oriented x1 not to place or time. Passed FRONT OFFICE REPRESENTATIVE evaluation with dysphagia diet ordered on 01/31 COVID 19 test negative on 01/30 CT head/chest/abd/pelvis identified small right pleural effusion with possible infection pr esent that can be possible pneumonia. No clear signs of acute abdominal infection. No acute intracranial abnormalities -hold opioids for AMS, tylenol for pain -delirium precautions -continue home dose of lexapro 5mg daily -treating infectious causes of possible gastroenteritis vs pneumonia vs UTI vs sacral decub infection, most likely sacral decub infection #Abdominal pain possible gastroenteritis, improved #leukocytosis 2/2 infection Diffuse abdominal tenderness to deep palpation. Leukocytosis noted at 14.3 on admission, do wntrend to 13.3->13.6->13.4->14.1->11.5 -Cdiff and stool pathogens negative. No diarrhea since admission, continue to monitor -On Unasyn/vanc -zofran PRN, famotidine #Possible Pneumonia o nCXR #Hx of COPD, not in acute exacerbation Home O2 is 2-3L NC currently on home O2 on evaluation. Has history of prior MRSA PNA. -F/u cultures -Continue Unasyn/Vanc -nebs -continue chronic home dose of prednisone 10mg daily #UTI No current complaints of urinary burning, some incontinence during admission. UA in am 02/01 positive for UTI Changed levaquin to Vanc/Unasyn for also concern for infected sacral decub, will continue t o follow up Urine cultures. #CHFpEF exacerbation, stable # s/p TAVR #Type 2 [place] Last echo showed EF 65%, likely CHFpEF. troponins stable, no chest pain during admission. 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 Repeat BNP 02/01 635 Changed lasix 20IV BID to 20po BID on 02/01, clinically euvolemic, lasix 20mg PO BID is home dose 02/04 has fine crackles bilaterally, hold fluids, continue Lasix 20mg PO BID Continue coreg Continue aspirin/statin Trend I/Os, daily weights #Sacral Decubitous, Stage 3, infected -Continue wound care -f/u wound culture: prelim growin staph aureus -continue Unasyn/vanc #Anemia F/u Iron and b12/folate. Concern for drop in Hgb to 7.5. no sign of bleeding. F/u 10am hgb #Hypernatremia 150->149->146->151->149->146, improved with 50ml/hr D5W as patient has poor PO intake, give n fine crackles on exam holding further IVFs today and will continue PO intake with assist. #Esophageal dysphagia #New diagnosis of achalasia Found to have significant dysphagia on FRONT OFFICE REPRESENTATIVE evaluation. Will require upper GI workup per FRONT OFFICE REPRESENTATIVE . Recommend reflux precautions and puree diet. Will d/w GI for possible EGD and esophagram f or motility. EGD was last done 08/2019 with no evidence of cause of dysphagia. Given previou s evaluation, the patient could benefit from manometry outpatient and would not benefit from repeat EGD at this time. Recommended esophagram while inpatient. 02/02 Esophagram shows lower esophageal sphincter spasm likely related to achalasia. D/w Dr. Sydney PEREZ and next step would be to perform manometry as outpatient for confirmation of bhavani lasia and to approach treatment as outpatient. -Continue dysphagia diet -f/u outpatient #FAITH, resolved Improved, continue to monitor daily #malnutrition I attest that this clinical assessment using ASPEN criteria 1 is accurate for this patient and supports that as a medical diagnosis. A specific nutrition treatment plan will be imple mented as outlined in the registered dietitian's plan of care. Nutrition Diagnosis: Severe protein-calorie malnutrition Type, Severe: Chronic illness Weight Loss: Greater than 7.5% in 3 months (8% unintended weight loss, BMI 17.95) Energy Intake: Less than or equal to 50% of estimated energy intake compared to needs in gr eater than or equal to 5 days (eating 10-45% of dysphagia diet since admit) Body Fat: Moderate depletion Muscle Mass: Severe depletion DVT PPx: heparin subq GI PPx: pepcid Diet: puree diet, 1800ml fluid restriction, Na 2gm Dispo: Continue PT/OT. Recommend SNF on discharge, unsafe for discharge home as she require s full assist, considering home hospice Goals of care: Patient's son requests to consider home hospice on discharge, placed palliative care consul t. Will continue antibiotics and supportive care for infections until decision for transitio n to comfort care is made. Chace Higuera MD 02/05/2020 8:48 AM [facility] Subjective CC Continued lower back pain and shoulder pain. No abdominal pain. Yelled "help me" when enter ing room and wanted to be adjusted. Increased respiration with anxiety this am. Stated "just let me go" and thinking she is a burden stating "she doesn't want to live like this". State d she needs to continue IV abx to attempt to get stronger. Will discuss further with family as patient currently is AOx1 not to place or time at baseline. Will attempt to continue pain control and keep patient comfortable while treating for sacral ulcer infection, pneumonia, and UTI. ROS See above Objective Exam General Anxious, AOx1, not to place or time, frail appearance Cardiac tachycardic, no murmurs rubs or gallups Extremities No edema No left shoulder tenderness on palpation, pain with manipulation of left shouylder Continued Sacral decubitous stage 3 with some white discharge noted, surrounding erythema Lung Fine crackles auscultated in mid and lower lobes bilaterally. Tachypnea on 2L NC Abdominal Soft, Nontender, nondistended Neuro NFND, generalized weakness otherwise 5/5 Serial weights: Filed Weights: 01/31/20 0838 02/01/20 0500 02/02/20 0442 02/03/20 0400 Weight: 53.5 kg (117 lb 15.1 oz) 51.9 kg (114 lb 6.4 oz) 50.1 kg (110 lb 7.2 oz) 50.4 kg (1 11 lb 3.2 oz) 02/04/20 0307 02/05/20 0358 Weight: 50.7 kg (111 lb 12.4 oz) 50.9 kg (112 lb 4.8 oz) Most recent weight: Input and output 2 shifts and 3 shifts: Wt Readings from Last 1 Encounters: 02/05/20 50.9 kg (112 lb 4.8 oz) I/O last 24 Hours: In: 1673 [P.O.:708; I.V.:515; IV Piggyback:450] Out: 750 [Urine:750] I/O last 3 completed shifts: In: 2033 [P.O.:958; I.V.:525; IV Piggyback:550] Out: 1600 [Urine:1600] Vitals Ranges: Temp: [35.9 C (96.7 F)-36.7 C (98.1 F)] 36.2 C (97.2 F) Pulse: [83-104] 104 Resp: [18-24] 20 BP: (132-171)/(64-92) 171/92 Vitals: Temp: 36.2 C (97.2 F) BP: (!) 171/92 Pulse: 104 Resp: 20 SpO2: 98 % SpO2 98 % on nasal cannula at flow rate 2L/min Diet and Supplements Diet Diet general; puree; thin liquids allowed; sodium restricted 2 gm; 1800 ml fluid; Effectiv e Now Number of Occurrences: Until Specified Order Comments: Red tray 1:1 International Dysphagia Diet Standardization Initiative (IDD SI): Ángela is currently at Food Level 4, Pureed (formerly dysphagia pureed) and Drink Level 0, Thin. Thin. Order Questions: Type Diet general Texture modifications puree Fluid consistency modifications thin liquids allowed sodium restictions sodium restricted 2 gm fluid volume restictions 1800 ml fluid Nourishments Dietary nutrition supplements Boost; 1 Can Number of Occurrences: Until Specified Order Comments: With meals Order Questions: Supplement Boost Volume: 1 Can Objective Data Allergies: Allergies Allergen Reactions Flagyl [Metronidazole] Nausea And Vomiting and GI Upset Percocet [Oxycodone] Unknown Pregabalin Unknown Lyrica Current Medications: Current Facility-Administered Medications Medication Dose Route Frequency Provider Last Rate Last Dose acetaminophen (TYLENOL) tablet 650 mg 650 mg Oral Q6H PRN Félix Gan MD 650 mg at 02/03/20 0646 albuterol-ipratropium 2.5-0.5 mg/3 mL nebulizer solution 3 mL 3 mL Nebulization RT Q4H PRN Chace Higuera MD albuterol-ipratropium 2.5-0.5 mg/3 mL nebulizer solution 3 mL 3 mL Nebulization RT Q6H Aida Mills MD 3 mL at 02/05/20 0837 ampicillin-sulbactam (UNASYN) 3 g in sodium chloride 0.9% 100 mL IVPB 3 g Intravenous Q8H Chace Higuera MD 200 mL/hr at 02/05/20 0039 3 g at 02/05/20 0039 atorvaSTATin (LIPITOR) tablet 20 mg 20 mg Oral Nightly Aida Mills MD 20 mg at 0510/25 brimonidine (ALPHAGAN) 0.2% ophthalmic solution 1 drop 1 drop Both Eyes BID Aida hernandez MD 1 drop at 02/04/202055 budesonide (PULMICORT) nebulizer solution 0.5 mg 0.5 mg Nebulization RT BID Aida hernandez MD 0.5 mg at 02/05/20 0816 carvedilol (COREG) tablet 3.125 mg 3.125 mg Oral BID WC Aida Mills MD 3.125 mg at 02/04/20 172 dorzolamide (TRUSOPT) 2% ophthalmic solution 1 drop 1 drop Both Eyes BID Aida Mills MD 1 drop at 02/04/20 205 escitalopram (LEXAPRO) tablet 5 mg 5 mg Oral Daily Chace Higuera MD 5 mg at 0 02/04/20 1100 famotidine (PEPCID) injection 20 mg 20 mg Intravenous Daily Aida Mills MD 20 mg at 02/04/20 1057 furosemide (LASIX) tablet 20 mg 20 mg Oral BID (8 and 16) Chace Higuera MD 20 mg at 02/04/20 1724 HYDROcodone-acetaminophen (NORCO) 5-325 mg per tablet 1-2 tablet 1-2 tablet Oral Q6H P RN Chace Higuera MD 1 tablet at 02/04/20 172 lactobacillus GG (CULTURELLE) capsule 1 capsule 1 capsule Oral BID Aida Mills MD 1 capsule at 02/04/202053 latanoprost (XALATAN) 0.005% ophthalmic solution 1 drop 1 drop Both Eyes Nightly Gagandeep Mills MD 1 drop at 02/04/202055 ondansetron (ZOFRAN) injection 4 mg 4 mg Intravenous Q6H PRN Aida Mills MD predniSONE (DELTASONE) tablet 10 mg 10 mg Oral Daily Chace Higuera MD 10 mg a t 02/04/20 1059 vancomycin 1 g in sodium chloride 0.9% 250 mL IVPB 1 g Intravenous Q24H Ina durham, PharmD 166.7 mL/hr at 02/04/20 1152 1 g at 02/04/20 1152 vancomycin per pharmacy Other Pharmacy Consult Chace Higuera MD Current Infusions: Hematology and anemia Recent Labs Lab 02/05/20 0628 02/04/20 0629 02/03/20 0618 WBC 11.5* 14.1* 13.4* HGB 7.5* 7.9* 7.8* HCT 24.9* 25.9* 25.4* PLT 116* 139* 139* NEUPCT 80.9 84.2* 85.3* Recent Labs Lab 01/31/20 0907 PROTIME 14.6* INR 1.1 No results for input(s): IRON, TIBC, PCTSAT, FERRITIN, TSH, [id number], FOLATE in the last 168 hours. Inflammatory markers Recent Labs Lab 01/31/20 0907 LACTATE 1.0 PROCALCITONI 0.23 CRP 99.10* Chemistry Recent Labs Lab 02/05/20 0628 02/04/20 1203 02/04/20 0629 02/03/20 0618 01/31/20 0907 GLU 88 -- 84 86 < > 97 NA 146* 149* 151* 146* < > 144 K 3.4 -- 3.6 3.6 < > 3.6 CL 111* -- 115* 114* < > 108* CO2 32* -- 31 29 < > 30 ANIONGAP 3 -- 5 3 < > 6 BUN 22 -- 23 28* < > 39* CREA 0.63 -- 0.73 0.89 < > 1.06* GFRNONAA >60 -- >60 60 < > 49* CALCIUM 7.4* -- 7.9* 7.6* < > 7.8* ALBUMIN -- -- -- -- -- 2.5* TOTALPROTEIN -- -- -- -- -- 5.1* BILITOT -- -- -- -- -- 0.6 ALKPHOS -- -- -- -- -- 132* ALT -- -- -- -- -- 12 AST -- -- -- -- -- 21 < > = values in this interval not displayed. Recent Labs Lab 02/05/20 0628 02/04/20 0629 02/03/20 0618 MG 1.8 1.9 1.8 Recent Labs Lab 01/31/20 0907 LIPASE 16 No results for input(s): TRIG, CHOL, HDL, LDL in the last 168 hours. No results for input(s): AMMONIA in the last 168 hours. Cardiology & Digoxin Recent Labs Lab 02/02/20 0640 01/31/20 2107 01/31/20 1721 01/31/20 0907 TROPONIN -- 0.07* 0.07* 0.09* BNP 635* -- -- 850* ABG No results for input(s): PHART, PO2ART, SMO0WEA, GDD4AHW, BEART, H9MMXYLE in the last 168 h ours. No results for input(s): SPECSOURCE, PHPOCB, PCO2, PO2, HCO3, TCO2, BEART, QEMI8EHO in the last 168 hours. Drug of overdose and abuse No results for input(s): ALCOHOL, ACTMN, SALICYLATE in the last 168 hours. No results for input(s): AMPHEQUAL, BARBITURATE, BENZSCR, CANNIBSCR, AMPHETAMINE, METHADSCR , OPIATESCR in the last 168 hours. Urinalysis Recent Labs Lab 02/02/20 0344 01/31/20 1220 GLUCOSEU Negative -- WBCUA >100* 0-2 RBCUA 25-50* 0-2 SQUAMEPIUA 5-10* 0-2 BACTERIAUA 1+* Negative Point of care glucose No results for input(s): POCGLU in the last 168 hours. Micro results more choices using dot micro (below is last 7 days) Microbiology Results (Last 7) Date with Culture/Sensitivity) Procedure Component Value Units Date/Time Culture, Wound, Smear, w/Anaerobe [[id number]] Collected: 02/03/201112 Order Status: Sent Lab Status: In process Updated: 02/03/201117 Specimen: Tissue from Vertebrae, Sacral Narrative: The following orders were created for panel order Culture, Wound, Smear, w/Anaerobe. Procedure Abnormality Status --------- ------ Culture, Wound, Smear[[id number]] Preliminary result Culture, Anaerobic[[id number]] In process Please view results for these tests on the individual orders. Culture, Wound, Smear [[id number]] Collected: 02/03/201112 Order Status: Completed Lab Status: Preliminary result Updated: 02/04/20 0836 Specimen: Tissue from Vertebrae, Sacral Culture 4+ Staphylococcus aureus Comment: Presumptive identification Identification and susceptibility to follow. Gram Stain Result No white blood cells (PMNs) seen 1+ Epithelial cells 2+ Gram positive cocci Culture, Anaerobic [[id number]] Collected: 02/03/201112 Order Status: Resulted Lab Status: In process Updated: 02/03/201117 Specimen: Tissue from Vertebrae, Sacral Culture, Urine [[id number]] Collected: 02/02/20 0344 Order Status: Completed Lab Status: Preliminary result Updated: 02/04/20 1239 Specimen: Urine, Unspecified Source Culture >100,000 CFU/ml Yeast species Comment: Identification to follow. Stool Pathogens, NAAT [[id number]] (Normal) Collected: 02/01/20 0901 Order Status: Completed Lab Status: Final result Updated: 02/01/20 1444 Specimen: Stool Campylobacter, NAAT Not Detected Salmonella, NAAT Not Detected Shigella NAAT Not Detected Vibrio, NAAT Not Detected Yersinia enterocolitica, NAAT Not Detected Shigatoxin 1 Not Detected Shigatoxin 2 Not Detected Clostridioides difficle NAAT reflex to Tox Ag [[id number]] Collected: 02/01/20 0901 Order Status: Completed Lab Status: Final result Updated: 02/01/20 1210 Specimen: Stool Narrative: The following orders were created for panel order Clostridioides difficle NAAT reflex to T ox Ag. Procedure Abnormality Status --------- ------ Clostridioides difficile...[[id number]] Final result Please view results for these tests on the individual orders. Clostridioides difficile NAAT Reflex [[id number]] Collected: 02/01/20 0901 Order Status: Completed Lab Status: Final result Updated: 02/01/20 1210 Specimen: Stool C. difficile, Interp Negative Comment: No Toxigenic C. difficile detected. Consider other causes of Diarrhea. Repeat te sting should not be performed within 7 days. C. difficile, NAAT Negative Culture, Blood [[id number]] Collected: 01/31/20 1721 Order Status: Completed Lab Status: Preliminary result Updated: 02/03/20 1731 Specimen: Blood from Line Culture No growth: Monitored continually by instrument for 5 days Influenza A and B RNA, NAAT [[id number]] (Normal) Collected: 01/31/20 1514 Order Status: Completed Lab Status: Final result Updated: 01/31/20 1557 Specimen: Tissue from Nasopharynx Influenza A PCR Negative Influenza B PCR Negative Respiratory pathogen panel, NAAT [[id number]] (Normal) Collected: 01/31/20 1513 Order Status: Completed Lab Status: Final result Updated: 01/31/20 1804 Specimen: Body Fluid from Nasopharynx Parainfluenza 1 Not Detected Adenovirus Not Detected Human Metapneumovirus Not Detected Rhinovirus/Enterovirus Not Detected Parainfluenza 3 Not Detected Coronavirus (COVID-19) NAAT [[id number]] (Normal) Collected: 01/31/20 0947 Order Status: Completed Lab Status: Final result Updated: 01/31/20 194 Specimen: Tissue from Nasopharynx SARS coronavirus 2 NAAT Not Detected Comment: See Scanned Report [facility] STAT instructions for COVID-19 tracking [[id number]] Collected: 01/31/20 0947 Order Status: Completed Lab Status: Final result Updated: 01/31/20 194 Specimen: Tissue from Nasopharynx [facility] COVID STAT instruction done Culture, Blood [[id number]] Collected: 01/31/20 0907 Order Status: Completed Lab Status: Preliminary result Updated: 02/03/20920 Specimen: Peripheral Blood Culture No growth: Monitored continually by instrument for 5 days Radiology results (more choices using dot risresults) Fl Esophagram Complete Result Date: 02/03/2020 FL ESOPHAGRAM COMPLETE 02/03/2020 8:56 AM HISTORY: Esophageal dysmotility. COMPARISON: Multi ple priors. PROTOCOL: The patient was initially administered thin oral barium. Fluoroscopic images of the esophagus and stomach region were obtained. FINDINGS: This is a limited evalua tion as the patient cannot bear weight and is immobile. There is spasm of the distal esophag us in the region of the lower esophageal sphincter with moderate distention. Mild diffuse te rtiary contraction are noted throughout the esophagus. No significant emptying into the stom ach is visualized after about 4 minutes of imaging. 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 Dictated and Signed by: MD Boaz Mustafa signed: 02/03/2020 10:50 AM Reference. This is NOT part of the patient's formal assessment section. In the assessment or plan section of notes the author may date some of the subsections with a number such as "23" or "23" to indicate the date of that entry or event. In the example below the 1st line is the original entry and the subsequent lines indicate flowing updates to the subsection: Example assessment subsection (such as CHF or CP or Pneumonia) 23 Patient is improved today with resolution of symptoms 24th Worse with recurrence of symptoms requiring further testing Portions of this chart may have been created with [employer] voice recognition software. Occasi onal wrong-word or sound-alike substitutions may have occurred due to the inherent owen itations of voice recognition software. Please read the chart carefully and recognize, using context, where these substitutions have occurred erry, Chace hobson MD - 02/04/2020 11:03 AM PDTFormatting of this note might be different from the origin co. [place] HOSPITALIST PROGRESS NOTE Patient: Ángela Crowley : 1930: Age: 89 y.o. MedRec: [id number] PCP: Candido Link MD Admission date: 01/31/2020 Hospital day # : 4 Physician author: Chace Higuear MD Today: 02/04/2020 Assessment and Hospital Course Active Hospital Problems Diagnosis Acute metabolic encephalopathy Pressure injury of deep tissue of sacral region Acute systolic congestive heart failure Acute respiratory failure with hypoxia Gastroenteritis Resolved Hospital Problems No resolved problems to display. 89F PMHx COPD on 2-3L NC Home O2, TAVR, CHFpEF, presented from home with acute metabolic en cephalopathy 2/2 medications vs infectious process. Treating for pneumonia seen on CT chest. UA positive for UTI. Possible evidence Plan #Acute metabolic encephalopathy, stable Unclear etiology, possible medication induced, infectious, CHF history, per notes is baseli ne lucid and oriented. On 01/31 patient is Alert but oriented x1 not to place or time. Passed FRONT OFFICE REPRESENTATIVE evaluation with dysphagia diet ordered on 01/31 COVID 19 test negative on 01/30 CT head/chest/abd/pelvis identified small right pleural effusion with possible infection pr esent that can be possible pneumonia. No clear signs of acute abdominal infection. No acute intracranial abnormalities -hold opioids for AMS, tylenol for pain -delirium precautions -continue home dose of lexapro 5mg daily -treating infectious causes of possible gastroenteritis vs pneumonia vs UTI vs sacral decub infection, most likely sacral decub infection #Abdominal pain possible gastroenteritis, improved Diffuse abdominal tenderness to deep palpation. Leukocytosis noted at 14.3 on admission, do wntrend to 13.3->13.6->13.4->14.1 -Cdiff and stool pathogens negative. No diarrhea since admission, continue to monitor -On Unasyn/vanc -zofran PRN, famotidine #Possible Pneumonia #Hx of COPD, not in acute exacerbation Home O2 is 2-3L NC currently on home O2 on evaluation. Has history of prior MRSA PNA. -F/u cultures -Continue Unasyn/Vanc -nebs -continue chronic home dose of prednisone 10mg daily #UTI No current complaints of urinary burning, some incontinence during admission. UA in am 02/01 positive for UTI Changed levaquin to Vanc/Unasyn for also concern for infected sacral decub, will continue t o follow up Urine cultures. #CHFpEF exacerbation # s/p TAVR #Type 2 [place] Last echo showed EF 65%, likely CHFpEF. troponins stable, no chest pain during admission. 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 Repeat BNP 02/01 635 Changed lasix 20IV BID to 20po BID on 02/01, clinically euvolemic, lsaix 20mg PO BID is home dose Continue coreg Continue aspirin/statin Trend I/Os, daily weights #FAITH Improved, continue to monitor daily #Sacral Decubitous, Stage 3 Continue wound care -concerned about stool tracking up to wound dressing causing infection of the sacral ulcer, concern for worsening infection in area. -Changed antibiotics to cover MRSA and anaerobes, Vanc and unasyn started 02/02 changed from levaquin -f/u wound culture: prelim growin staph aureus #Anemia Stable #Hypernatremia 150->149->146->151, rechecking at noon 02/03. Started light 50ml/hr D5W for support as patien t likely not having adequate oral intake. Check daily #Esophageal dysphagia #New diagnosis of achalasia Found to have significant dysphagia on FRONT OFFICE REPRESENTATIVE evaluation. Will require upper GI workup per FRONT OFFICE REPRESENTATIVE . Recommend reflux precautions and puree diet. Will d/w GI for possible EGD and esophagram f or motility. EGD was last done 08/2019 with no evidence of cause of dysphagia. Given previou s evaluation, the patient could benefit from manometry outpatient and would not benefit from repeat EGD at this time. Recommended esophagram while inpatient. 02/02 Esophagram shows lower esophageal sphincter spasm likely related to achalasia. D/w Dr. Sydney PEREZ and next step would be to perform manometry as outpatient for confirmation of bhavani lasia and to approach treatment as outpatient. Continue dysphagia diet #malnutrition I attest that this clinical assessment using ASPEN criteria 1 is accurate for this patient and supports that as a medical diagnosis. A specific nutrition treatment plan will be imple mented as outlined in the registered dietitian's plan of care. Nutrition Diagnosis: Severe protein-calorie malnutrition Type, Severe: Chronic illness Weight Loss: Greater than 7.5% in 3 months (8% unintended weight loss, BMI 17.95) Energy Intake: Less than or equal to 50% of estimated energy intake compared to needs in gr eater than or equal to 5 days (eating 10-45% of dysphagia diet since admit) Body Fat: Moderate depletion Muscle Mass: Severe depletion DVT PPx: heparin subq GI PPx: pepcid Diet: puree diet, 1800ml fluid restriction, Na 2gm Dispo: PT/OT ordered. Possible SNF vs home with assist in 2-3 more days Chace Higuera MD 02/04/2020 11:03 AM [facility] Subjective CC Pain located in lower back. Continued wound care for sacral ulcer. Culture beginning to kelby w staph aureus will continue Vanc/unasyn for now. Patient had anxiety this am and tachypneic but lungs clear and on 2LNC 97% O2. Starting light hydration for hypernatremia, unable to d rink on her own and needs assistance with food and drink. Called son for updates this am. ROS See above Objective Exam General NAD, AOx1, not to place or time, frail appearance Cardiac RRR, no murmurs rubs or gallups Extremities No edema No shoulder tenderness on palpation, able to be sit up without pain Sacral decubitous stage 3 with some white discharge noted, surrounding erythema Lung CTA bilaterally Abdominal Soft, NT, ND, NBS Neuro NFND, generalized weakness otherwise 5/5 Serial weights: Filed Weights: 01/31/20 0838 02/01/20 0500 02/02/20 0442 02/03/20 0400 Weight: 53.5 kg (117 lb 15.1 oz) 51.9 kg (114 lb 6.4 oz) 50.1 kg (110 lb 7.2 oz) 50.4 kg (1 11 lb 3.2 oz) 02/04/20 0307 Weight: 50.7 kg (111 lb 12.4 oz) Most recent weight: Input and output 2 shifts and 3 shifts: Wt Readings from Last 1 Encounters: 02/04/20 50.7 kg (111 lb 12.4 oz) I/O last 24 Hours: In: 800 [P.O.:690; I.V.:10; IV Piggyback:100] Out: 1125 [Urine:1125] I/O last 3 completed shifts: In: 1100 [P.O.:990; I.V.:10; IV Piggyback:100] Out: 1525 [Urine:1525] Vitals Ranges: Temp: [36 C (96.8 F)-36.3 C (97.3 F)] 36.1 C (97 F) Pulse: [79-100] 96 Resp: [16-24] 20 BP: (123-148)/(64-75) 140/66 Vitals: Temp: 36.1 C (97 F) BP: 140/66 Pulse: 96 Resp: 20 SpO2: 97 % SpO2 97 % on nasal cannula at flow rate 2L/min Diet and Supplements Diet Diet general; puree; thin liquids allowed; sodium restricted 2 gm; 1800 ml fluid; Effectiv e Now Number of Occurrences: Until Specified Order Comments: Red tray 1:1 International Dysphagia Diet Standardization Initiative (IDD SI): Ángela is currently at Food Level 4, Pureed (formerly dysphagia pureed) and Drink Level 0, Thin. Thin. Order Questions: Type Diet general Texture modifications puree Fluid consistency modifications thin liquids allowed sodium restictions sodium restricted 2 gm fluid volume restictions 1800 ml fluid Nourishments Dietary nutrition supplements Boost; 1 Can Number of Occurrences: Until Specified Order Comments: With meals Order Questions: Supplement Boost Volume: 1 Can Objective Data Allergies: Allergies Allergen Reactions Flagyl [Metronidazole] Nausea And Vomiting and GI Upset Percocet [Oxycodone] Unknown Pregabalin Unknown Lyrica Current Medications: Current Facility-Administered Medications Medication Dose Route Frequency Provider Last Rate Last Dose acetaminophen (TYLENOL) tablet 650 mg 650 mg Oral Q6H PRN Félix Gan MD 650 mg at 02/03/20 0646 albuterol-ipratropium 2.5-0.5 mg/3 mL nebulizer solution 3 mL 3 mL Nebulization RT Q6H Aida Mills MD 3 mL at 02/04/20 0741 ampicillin-sulbactam (UNASYN) 3 g in sodium chloride 0.9% 100 mL IVPB 3 g Intravenous Q8H Chace Higuera MD 200 mL/hr at 02/04/20 1052 3 g at 02/04/20 1052 aspirin chewable tablet 81 mg 81 mg Oral Daily Aida Mills MD 81 mg at 02/04/20 105 9 atorvaSTATin (LIPITOR) tablet 20 mg 20 mg Oral Nightly Aida Mills MD 20 mg at 01/06 2030 brimonidine (ALPHAGAN) 0.2% ophthalmic solution 1 drop 1 drop Both Eyes BID Aida hernandez MD 1 drop at 02/04/20 1102 budesonide (PULMICORT) nebulizer solution 0.5 mg 0.5 mg Nebulization RT BID Aida hernandez MD 0.5 mg at 02/04/20 0740 carvedilol (COREG) tablet 3.125 mg 3.125 mg Oral BID WC Aida Mills MD 3.125 mg at 02/04/20 1100 dorzolamide (TRUSOPT) 2% ophthalmic solution 1 drop 1 drop Both Eyes BID Aida Mills MD 1 drop at 02/04/20 1102 escitalopram (LEXAPRO) tablet 5 mg 5 mg Oral Daily Chace Higuera MD 5 mg at 0 02/04/20 1100 famotidine (PEPCID) injection 20 mg 20 mg Intravenous Daily Aida Mills MD 20 mg at 02/04/20 1057 furosemide (LASIX) tablet 20 mg 20 mg Oral BID (8 and 16) Chace Higuera MD 20 mg at 02/04/20 1059 heparin 5,000 units/mL injection 5,000 Units 5,000 Units Subcutaneous 2 times per day Aida Mills MD 5,000 Units at 02/04/20 1102 HYDROcodone-acetaminophen (NORCO) 5-325 mg per tablet 1-2 tablet 1-2 tablet Oral Q6H P RN Chace Higuera MD 1 tablet at 02/04/20 0850 lactobacillus GG (CULTURELLE) capsule 1 capsule 1 capsule Oral BID Aida Mills MD 1 capsule at 02/04/20 1059 latanoprost (XALATAN) 0.005% ophthalmic solution 1 drop 1 drop Both Eyes Nightly Gagandeep Mills MD 1 drop at 02/03/202032 ondansetron (ZOFRAN) injection 4 mg 4 mg Intravenous Q6H PRN Aida Mills MD predniSONE (DELTASONE) tablet 10 mg 10 mg Oral Daily Chace Higuera MD 10 mg a t 02/04/20 1059 vancomycin 1 g in sodium chloride 0.9% 250 mL IVPB 1 g Intravenous Q24H Ina durham PharmD 166.7 mL/hr at 02/03/20 1210 1 g at 02/03/20 1210 vancomycin per pharmacy Other Pharmacy Consult Chace Higuera MD Current Infusions: Hematology and anemia Recent Labs Lab 02/04/2062802/03/20 0618 02/02/20 0640 WBC 14.1* 13.4* 13.6* HGB 7.9* 7.8* 8.1* HCT 25.9* 25.4* 26.3* PLT 139* 139* 149 NEUPCT 84.2* 85.3* 89.0* Recent Labs Lab 01/31/20 0907 PROTIME 14.6* INR 1.1 No results for input(s): IRON, TIBC, PCTSAT, FERRITIN, TSH, [id number], FOLATE in the last 168 hours. Inflammatory markers Recent Labs Lab 01/31/20 09 LACTATE 1.0 PROCALCITONI 0.23 CRP 99.10* Chemistry Recent Labs Lab 02/04/2062802/03/20 0602/02/20 1222 02/02/20 0640 01/31/20 0907 GLU 84 86 -- 91 < > 97 NA 151* 146* 146* 149* < > 144 K 3.6 3.6 -- 3.0* < > 3.6 CL 115* 114* -- 114* < > 108* CO2 31 29 -- 29 < > 30 ANIONGAP 5 3 -- 6 < > 6 BUN 23 28* -- 32* < > 39* CREA 0.73 0.89 -- 0.94 < > 1.06* GFRNONAA >60 60 -- 56* < > 49* CALCIUM 7.9* 7.6* -- 7.8* < > 7.8* ALBUMIN -- -- -- -- -- 2.5* TOTALPROTEIN -- -- -- -- -- 5.1* BILITOT -- -- -- -- -- 0.6 ALKPHOS -- -- -- -- -- 132* ALT -- -- -- -- -- 12 AST -- -- -- -- -- 21 < > = values in this interval not displayed. Recent Labs Lab 02/04/2062802/03/2061702/02/20 0640 MG 1.9 1.8 1.8 Recent Labs Lab 01/31/20 0907 LIPASE 16 No results for input(s): TRIG, CHOL, HDL, LDL in the last 168 hours. No results for input(s): AMMONIA in the last 168 hours. Cardiology & Digoxin Recent Labs Lab 02/02/20 0640 01/31/20 2107 01/31/20 1721 01/31/20 0907 TROPONIN -- 0.07* 0.07* 0.09* BNP 635* -- -- 850* ABG No results for input(s): PHART, PO2ART, YUK0HNK, PBD0XZI, BEART, [id number] in the last 168 h ours. No results for input(s): SPECSOURCE, PHPOCB, PCO2, PO2, HCO3, TCO2, BEART, [id number] in the last 168 hours. Drug of overdose and abuse No results for input(s): ALCOHOL, ACTMN, SALICYLATE in the last 168 hours. No results for input(s): AMPHEQUAL, BARBITURATE, BENZSCR, CANNIBSCR, AMPHETAMINE, METHADSCR , OPIATESCR in the last 168 hours. Urinalysis Recent Labs Lab 02/02/20 0344 01/31/20 1220 GLUCOSEU Negative -- WBCUA >100* 0-2 RBCUA 25-50* 0-2 SQUAMEPIUA 5-10* 0-2 BACTERIAUA 1+* Negative Point of care glucose No results for input(s): POCGLU in the last 168 hours. Micro results more choices using dot micro (below is last 7 days) Microbiology Results (Last 7) Date with Culture/Sensitivity) Procedure Component Value Units Date/Time Culture, Wound, Smear, w/Anaerobe [[id number]] Collected: 02/03/201112 Order Status: Sent Lab Status: In process Updated: 02/03/201117 Specimen: Tissue from Vertebrae, Sacral Narrative: The following orders were created for panel order Culture, Wound, Smear, w/Anaerobe. Procedure Abnormality Status --------- ------ Culture, Wound, Smear[[id number]] Preliminary result Culture, Anaerobic[[id number]] In process Please view results for these tests on the individual orders. Culture, Wound, Smear [[id number]] Collected: 02/03/201112 Order Status: Completed Lab Status: Preliminary result Updated: 02/04/20 0836 Specimen: Tissue from Vertebrae, Sacral Culture 4+ Staphylococcus aureus Comment: Presumptive identification Identification and susceptibility to follow. Gram Stain Result No white blood cells (PMNs) seen 1+ Epithelial cells 2+ Gram positive cocci Culture, Anaerobic [[id number]] Collected: 02/03/20 1113 Order Status: Resulted Lab Status: In process Updated: 02/03/20 1118 Specimen: Tissue from Vertebrae, Sacral Culture, Urine [[id number]] Collected: 02/02/20 0344 Order Status: Completed Lab Status: Preliminary result Updated: 02/03/20 0835 Specimen: Urine, Unspecified Source Culture >100,000 CFU/ml Yeast species Comment: Isolating for additional information. Stool Pathogens, NAAT [[id number]] (Normal) Collected: 02/01/20 0901 Order Status: Completed Lab Status: Final result Updated: 02/01/20 1444 Specimen: Stool Campylobacter, NAAT Not Detected Salmonella, NAAT Not Detected Shigella NAAT Not Detected Vibrio, NAAT Not Detected Yersinia enterocolitica, NAAT Not Detected Shigatoxin 1 Not Detected Shigatoxin 2 Not Detected Clostridioides difficle NAAT reflex to Tox Ag [[id number]] Collected: 02/01/20 09 Order Status: Completed Lab Status: Final result Updated: 02/01/20 1210 Specimen: Stool Narrative: The following orders were created for panel order Clostridioides difficle NAAT reflex to T ox Ag. Procedure Abnormality Status --------- ------ Clostridioides difficile...[[id number]] Final result Please view results for these tests on the individual orders. Clostridioides difficile NAAT Reflex [[id number]] Collected: 02/01/20 0901 Order Status: Completed Lab Status: Final result Updated: 02/01/20 1210 Specimen: Stool C. difficile, Interp Negative Comment: No Toxigenic C. difficile detected. Consider other causes of Diarrhea. Repeat te sting should not be performed within 7 days. C. difficile, NAAT Negative Culture, Blood [[id number]] Collected: 01/31/20 1721 Order Status: Completed Lab Status: Preliminary result Updated: 02/03/20 173 Specimen: Blood from Line Culture No growth: Monitored continually by instrument for 5 days Influenza A and B RNA, NAAT [[id number]] (Normal) Collected: 01/31/20 1514 Order Status: Completed Lab Status: Final result Updated: 01/31/20 1557 Specimen: Tissue from Nasopharynx Influenza A PCR Negative Influenza B PCR Negative Respiratory pathogen panel, NAAT [[id number]] (Normal) Collected: 01/31/20 1513 Order Status: Completed Lab Status: Final result Updated: 01/31/20 1804 Specimen: Body Fluid from Nasopharynx Parainfluenza 1 Not Detected Adenovirus Not Detected Human Metapneumovirus Not Detected Rhinovirus/Enterovirus Not Detected Parainfluenza 3 Not Detected Coronavirus (COVID-19) NAAT [[id number]] (Normal) Collected: 01/31/20946 Order Status: Completed Lab Status: Final result Updated: 01/31/201941 Specimen: Tissue from Nasopharynx SARS coronavirus 2 NAAT Not Detected Comment: See Scanned Report [facility] STAT instructions for COVID-19 tracking [[id number]] Collected: 01/31/20946 Order Status: Completed Lab Status: Final result Updated: 01/31/201940 Specimen: Tissue from Nasopharynx [facility] COVID STAT instruction done Culture, Blood [[id number]] Collected: 01/31/20906 Order Status: Completed Lab Status: Preliminary result Updated: 02/03/20920 Specimen: Peripheral Blood Culture No growth: Monitored continually by instrument for 5 days Radiology results (more choices using dot risresults) Fl Esophagram Complete Result Date: 02/03/2020 FL ESOPHAGRAM COMPLETE 02/03/2020 8:56 AM HISTORY: Esophageal dysmotility. COMPARISON: Multi ple priors. PROTOCOL: The patient was initially administered thin oral barium. Fluoroscopic images of the esophagus and stomach region were obtained. FINDINGS: This is a limited evalua tion as the patient cannot bear weight and is immobile. There is spasm of the distal esophag us in the region of the lower esophageal sphincter with moderate distention. Mild diffuse te rtiary contraction are noted throughout the esophagus. No significant emptying into the stom ach is visualized after about 4 minutes of imaging. 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 Dictated and Signed by: MD Fabiola Mustafamyriam cast signed: 02/03/2020 10:50 AM Fl Video Swallow W Speech Result Date: 02/02/2020 FL VIDEO SWALLOW W SPEECH 02/02/2020 11:12 AM HISTORY: Determine severity and type of dyspha manjeet. COMPARISON: None. PROTOCOL: The patient was administered various compounds coated with barium by the speech pathologist. Fluoroscopic images were acquired. FINDINGS/IMPRESSION: Oral phase characterized by interlabial escape, escape to floor of [place] th, slow prolonged chewing, residue collection on oral structures. Pharyngeal phase of swall ow characterized by swallow initiation at posterior surface of epiglottis, diminished pharyn geal stripping wave, base of tongue weakness, residue collection on pharyngeal structures. S creening of esophagus indicated significant stasis of bolus mid-lower (near LES) esophagus?a nd retrograde flow below level of UES suggesting presence of esophageal dysphagia. Consider referral to GI for further testing of esophageal function to determine type/severity and man agement as indicated. Overall mild oropharyngeal dysphagia. Airway protection sufficient. Pl ease see the speech pathologist report for further information. Dictated and Signed by: Roberto Rodriguez MD Electronically signed: 02/02/2020 2:05 PM Reference. This is NOT part of the patient's formal assessment section. In the assessment or plan section of notes the author may date some of the subsections with a number such as "23" or "23" to indicate the date of that entry or event. In the example below the 1st line is the original entry and the subsequent lines indicate flowing updates to the subsection: Example assessment subsection (such as CHF or CP or Pneumonia) Patient is improved today with resolution of symptoms 24th Worse with recurrence of symptoms requiring further testing Portions of this chart may have been created with [employer] voice recognition software. Occasi onal wrong-word or sound-alike substitutions may have occurred due to the inherent owen itations of voice recognition software. Please read the chart carefully and recognize, using context, where these substitutions have occurred Ina Calles , PharmD - 02/04/2020 10:48 AM PDTFormatting of this note might be different from the origin al. VANCOMYCIN PER PHARMACY PROTOCOL: AMS/Drug Name - Vancomycin Patient: Ángela Crowley [id number] Admit: 01/31/2020 8:15 AM RELEVANT ALLERGIES: metronidazole (n/v, gi upset) 89 yrs old female patient admitted on 01/31/2020 for acute respiratory failure with hypoxia , acute systolic congestive heart failure, pressure injury of deep tissue of sacral region. Patient is receiving vancomycin starting on 02/03/20 for CAP and purulent SSTI of sacral decu bitous. Patient has a past medical history of Aortic stenosis, COPD (chronic obstructive pu lmonary disease) ([facility]), Coronary artery disease, Kidney stone, MRSA (methicillin resistant S taphylococcus aureus) (11/2019), Rheumatic fever, Tuberculosis, and Venereal disease. . Risk factors for MDR organisms include recent healthcare contact, recent antibiotic use, h/o MRS A. HPI: presents with feelings of weakness, vomiting and increasing pain over her coccyx. This patient c/o abdominal cramping and has a large coccygeal/sacral decubitus that is causing h er significant pain. Antimicrobials - Current Antibiotic Dates of Therapy Vancomycin 02/02- Unasyn 02/02- Antimicrobials - Discontinued Antibiotic Dates of Therapy Levofloxacin 01/30-02/01 Historical Vancomycin dosing (previous & current encounter): 12/01/19-12/08/19 starting dos ing 1000 mg q24hr (scr 0.70) trough 12, dose increased to 600 mg q12hr (scr 0.58) troughs 17 , 18.8, 21.4, dose decreased to 500 mg q12hr (scr 0.69) discontinued before next trough Micro/Cultures/Diagnostics: Microbiology Results (Last 14 Days by Collected Date with Culture/Sensitivity) Procedure Component Value Units Date/Time Culture, Wound, Smear, w/Anaerobe [[id number]] Collected: 02/03/20 1113 Order Status: Sent Lab Status: In process Updated: 02/03/201117 Specimen: Tissue from Vertebrae, Sacral Narrative: The following orders were created for panel order Culture, Wound, Smear, w/Anaerobe. Procedure Abnormality Status --------- ------ Culture, Wound, Smear[[id number]] Preliminary result Culture, Anaerobic[[id number]] In process Please view results for these tests on the individual orders. Culture, Wound, Smear [[id number]] Collected: 02/03/20 1113 Order Status: Completed Lab Status: Preliminary result Updated: 02/04/20 0836 Specimen: Tissue from Vertebrae, Sacral Culture 4+ Staphylococcus aureus Comment: Presumptive identification Identification and susceptibility to follow. Gram Stain Result No white blood cells (PMNs) seen 1+ Epithelial cells 2+ Gram positive cocci Culture, Anaerobic [[id number]] Collected: 02/03/20 1113 Order Status: Resulted Lab Status: In process Updated: 02/03/20 111 Specimen: Tissue from Vertebrae, Sacral Culture, Urine [[id number]] Collected: 02/02/20 0344 Order Status: Completed Lab Status: Preliminary result Updated: 02/03/20 0835 Specimen: Urine, Unspecified Source Culture >100,000 CFU/ml Yeast species Comment: Isolating for additional information. Stool Pathogens, NAAT [[id number]] (Normal) Collected: 02/01/20 09 Order Status: Completed Lab Status: Final result Updated: 02/01/20 1444 Specimen: Stool Campylobacter, NAAT Not Detected Salmonella, NAAT Not Detected Shigella NAAT Not Detected Vibrio, NAAT Not Detected Yersinia enterocolitica, NAAT Not Detected Shigatoxin 1 Not Detected Shigatoxin 2 Not Detected Clostridioides difficle NAAT reflex to Tox Ag [[id number]] Collected: 02/01/20 09 Order Status: Completed Lab Status: Final result Updated: 02/01/20 1210 Specimen: Stool Narrative: The following orders were created for panel order Clostridioides difficle NAAT reflex to T ox Ag. Procedure Abnormality Status --------- ------ Clostridioides difficile...[[id number]] Final result Please view results for these tests on the individual orders. Clostridioides difficile NAAT Reflex [[id number]] Collected: 02/01/20 09 Order Status: Completed Lab Status: Final result Updated: 02/01/20 1210 Specimen: Stool C. difficile, Interp Negative Comment: No Toxigenic C. difficile detected. Consider other causes of Diarrhea. Repeat te sting should not be performed within 7 days. C. difficile, NAAT Negative Culture, Blood [[id number]] Collected: 01/31/20 1721 Order Status: Completed Lab Status: Preliminary result Updated: 02/03/20 173 Specimen: Blood from Line Culture No growth: Monitored continually by instrument for 5 days Influenza A and B RNA, NAAT [[id number]] (Normal) Collected: 01/31/20 1514 Order Status: Completed Lab Status: Final result Updated: 01/31/20 1557 Specimen: Tissue from Nasopharynx Influenza A PCR Negative Influenza B PCR Negative Respiratory pathogen panel, NAAT [[id number]] (Normal) Collected: 01/31/20 1513 Order Status: Completed Lab Status: Final result Updated: 01/31/20 180 Specimen: Body Fluid from Nasopharynx Parainfluenza 1 Not Detected Adenovirus Not Detected Human Metapneumovirus Not Detected Rhinovirus/Enterovirus Not Detected Parainfluenza 3 Not Detected Coronavirus (COVID-19) NAAT [[id number]] (Normal) Collected: 01/31/20946 Order Status: Completed Lab Status: Final result Updated: 01/31/201941 Specimen: Tissue from Nasopharynx SARS coronavirus 2 NAAT Not Detected Comment: See Scanned Report [facility] STAT instructions for COVID-19 tracking [[id number]] Collected: 01/31/20946 Order Status: Completed Lab Status: Final result Updated: 01/31/201940 Specimen: Tissue from Nasopharynx [facility] COVID STAT instruction done Culture, Blood [[id number]] Collected: 01/31/20 09 Order Status: Completed Lab Status: Preliminary result Updated: 02/03/20920 Specimen: Peripheral Blood Culture No growth: Monitored continually by instrument for 5 days Relevant cultures from previous admits: Date Source Organisms Sensitivities 12/03/19 Resp MRSA S: linezolid, minocycline, tetracycline, tigecycline, bactrim, vanco 11/24/19 resp Pseudomonas putida pansensitive 11/18/19 urine E. coli pansensitive Enterococcus faecalis pansensitive 08/21/19 urine Enterococcus faecium Sens: amp, pen, vanco E.coli pansensitive 07/21/19 resp Pseudomonas aeruginosa UA: 02/01 positive Admission Wt: Weight: 53.5 kg (117 lb 15.1 oz) Current Wt: Weight: 50.7 kg (111 lb 12.4 oz) Min/Max Temp past 24 hours:Temp Av.2 C (97.1 F) Min: 36 C (96.8 F) Max: 36. 3 C (97.3 F) Estimated Creatinine Clearance: 42 mL/min (based on SCr of 0.73 mg/dL). Intake/Output Summary (Last 24 hours) at 02/04/2020 1048 Last data filed at 02/04/2020 0600 Gross per 24 hour Intake 740 ml Output 1125 ml Net -385 ml Temp: [36 C (96.8 F)-36.3 C (97.3 F)] 36.1 C (97 F) Pulse: [79-100] 96 Resp: [16-24] 20 BP: (123-148)/(64-75) 140/66 Recent Labs Lab 02/04/20 0629 02/03/20 0618 02/02/20 0640 02/01/20 0634 02/01/20 0520 01/31/20 0907 WBC 14.1* 13.4* 13.6* -- 13.3* 14.3* CREA 0.73 0.89 0.94 0.93 -- 1.06* LACTATE -- -- -- -- -- 1.0 PROCALCITONI -- -- -- -- -- 0.23 CRP -- -- -- -- -- 99.10* Imagin/27 CXR: no acute findings 01/30 CT chest abdomen pelvis: 1. new but healing appearing fracture of the right inferior p ubic ramus compared with imaging of oct 27. No acute fracture is identified. 2. Chronic smal l dependent right pleural effusion with overall improved clustered nodularity and mucous plu gging in the lungs, favoring airway centered infection or inflammation. 3. Chronic, marked b iliary ductal dilation and prominence of the pancreatic duct. Consider follow-up non-emergen t mrcp if further characterization is desired. 4. Mildly prominent, fluid-filled small bowel in the left abdomen without evidence of obstruction. 5. Improved wall thickening and mesent lorena stranding in the rectosigmoid region. 6. Extensive vascular calcification with chronic enlargement of the main pulmonary artery, suggesting pulmonary arterial hypertension. 01/30 CT head: no evidence of acute intracranial disease. Date Time of Vancomycin draw Vancomycin result LEVEL or TROUGH Serum Creatinine CrCl (mL/mi n) Vanco load/bolus Vanco dose - current Vanco dose - new 02/02 - - - 0.89 34 - - 1000 mg q24hr 02/03 - - - 0.73 42 - 1000 mg q24hr - Assessment: Vancomycin Day # 2 Other antibiotics: Unasyn Target Trough: 15-20 mcg/ml for CAP and purulent SSTI of sacral decubitous WBC: leukcoytosis; Renal: SCr improved (baseline scr ~0.6); Temp: afebrile; Culture: 01/05 peripheral blood: ngtd, 01/30 covid neg, 01/30 resp panel neg, 01/30 flu neg, 01/30 blood from line: ngtd, 01/31 cdiff neg, 02/01 urine: >100,000 cfu/ml yeast sp, 02/02 tissue from vertebra e, sacral: 4+ staph aureus, anaerobe in process; VS: wnl, occasionally hr >90 Renal function: UOP: 0.9 mL/kg/hr, improved Plan: 1. Vancomycin 1000 mg (~20 mg/kg) IVPB q24h 2. Vancomycin trough ordered for 02/06/20 @ 1100 (draw 60 minutes prior to hanging the 4th do se) 3. Serum creatinine DAILY for first 3 days, then at least every 3 days while on vancomycin. 4. Will monitor renal function, clinical status, infection markers daily with troughs and d ose adjustment as needed. Definitions: For the purpose of this protocol, "trough" means a steady state trough before the 4th dose of the initial/new dosing regimen and "level" means all other levels drawn including before the 3rd dose References: Vancomycin dosing protocol IDSA guidelines Pharmacist-Driven Procalcitonin Protocol Per P&T-approved Vancomycin Dosing and Monitoring Protocol Electronically signed by: Ina Vann, PharmShruthi 02/04/2020 10:48 AM Rosio Wilson RN - 02/03/2020 4:40 PM PDTFollowing Infusion Nurses Society standards of care; 18 gauge 8 length BARD PowerGlide Pro midline catheter placed x 2 stick with ultrasound guidance. Natividad ter inserted to 7cm with 1 cm external. Draws bright red blood briskly, flushes easily with normal saline. Sterile dressing applied. Report to FUNMILAYO thomas who continues care. Electronically signed by: Rosio Macias RN 02/03/2020 4:40 PM utumn Sutherland, Pharm D - 02/03/2020 3:25 PM PDT PHARMACY SERVICES: ADMISSION MEDICATION REVIEW Ángela Crowley is a 89 y.o. female admitted on 01/31/2020. Patient is not a reliable historian. Location of Patient when reviewed: MEDICAL FLOOR Patient s prior to admit medication and over the counter (OTC) medications/herbal supplem ents list obtained from: X Verbal interview assisted by son-Yadiel who is a reliable historian (this person manages medications) X Patient not interviewed or unable to supply information due to: Does not manage her medications X Pharmacy list names: [facility] ([facility]) X Sure Scripts insurance reported information X Outside Information Vaccines up to date? 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 Medication: Prior to Admission Sig: Correct Dosage/Form: Correct Sig: Acetaminophen 325 mg tablet Take 2 tablets by mouth every 6 hours as needed for pain or fe kirby Acetaminophen 500 mg tablet Take 1 tablet by mouth every 6 hours as needed for pain Medication added: Medication: Prior to Admission Sig: Multivitamin Gummy Take 1 gummy by mouth daily Ascorbic acid (Vitamin C) 1000 mg tablet Take 1 tablet by mouth daily Calcium carbonate 600 mg tablet Take 1 tablet by mouth daily Removed therapy: Medication: Prior to Admission Sig: Reason for Removal: Benzonatate 200 mg capsule Take 1 capsule by mouth 3 times daily as needed for cough Thera py complete-Patient's son states they do not have this medication at home Sulfamethoxazole-Trimethoprim (Bactrim DS) 800-160 mg tablet Take 1 tablet by mouth 2 times daily for 7 days Therapy complete Recreational Substances, Tobacco & Alcohol use/frequency: Patient does not use Recreational substances, Tobacco, and/or Alcohol Other: Medication: Prior to Admission Sig: 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 Demian acetaminophen (TYLENOL) 500 mg tablet Take 500 mg by mouth every 6 hours as needed for Aris n. Taking Historical Provider, albuterol 2.5 mg/3 mL nebulizer solution Take 3 mLs by nebulization every 4 hours as neede d for Wheezing or Shortness of Breath. Inhale 1-2 treatments in nebulizer every 20 minutes f or 3 doses, then 1-4 treatments every 1-4 hours as needed Taking 60 vial Jazz Najera arformoterol (BROVANA) 15 MCG/2ML NEBU Take 2 mLs by nebulization Twice Daily. Length: Lif etime, Dx: J44.9 Taking 120 mL Lina Jan Correa MD Ascorbic Acid (VITAMIN C) 1000 MG tablet Take 1,000 mg by mouth Daily. Taking Historical Provider, aspirin 81 mg chewable tablet Take 1 tablet by mouth Daily. Taking 30 tablet Candido Link MD atorvaSTATin (LIPITOR) 20 mg tablet TAKE 1 TABLET BY MOUTH ONCE DAILY IN THE MORNING Takin g 90 tablet Candido Link MD bacitracin 500 UNIT/GM ointment Apply 1 Application topically 3 times daily. to bedsore on buttocks Taking Historical ProviderMD brimonidine (ALPHAGAN) 0.2% ophthalmic solution Place 1 drop into both eyes 2 times daily. Taking Anup Donohue MD budesonide (PULMICORT) 0.5 mg/2 mL nebulizer solution Take 2 mLs by nebulization 2 times d aily. Dx Code J44.90 Taking 180 mL Candido Link MD calcium carbonate (TUMS) 500 mg chewable tablet Chew and swallow 2 tablets Twice daily as needed for Heartburn or Indigestion. Taking Historical ProviderMD calcium, as carbonate, (CALTRATE) 600 mg tablet Take 600 mg by mouth daily (with breakfast ). Taking Historical ProviderMD carvedilol (COREG) 6.25 mg tablet Take 6.25 mg by mouth 2 times daily (with breakfast & di nner). Taking [facility] cetirizine (ZYRTEC) 10 mg tablet Take 1 tablet by mouth once daily Taking 30 tablet Sally Link MD cholecalciferol (VITAMIN D-3) 25 mcg (1,000 units) tablet Take 1,000 Units by mouth Daily. Taking Historical ProviderMD Cranberry 600 MG TABS Take 1 tablet by mouth Daily. Taking Alfredo ProviderMD dicyclomine (BENTYL) 10 mg capsule Take 1 capsule by mouth Daily as needed for Other (As n eeded for abdominal cramps). Taking 30 capsule Keyur Carvajal MD docusate sodium (COLACE) 250 MG capsule Take 2 capsules by mouth every morning. Hold for l oose stools Taking Differently 60 capsule Candido Link MD dorzolamide (TRUSOPT) 2% ophthalmic solution Place 1 drop into both eyes 2 times daily. Blane Donohue MD escitalopram (LEXAPRO) 5 MG tablet Take 1 tablet by mouth once daily Taking 90 tablet Mora Link MD famotidine (PEPCID) 40 MG tablet Take 1 tablet by mouth nightly. Taking 90 tablet Haley Link MD ferrous sulfate 325 mg tablet Take 1 tablet by mouth daily (with breakfast). Taking 90 tab let Candido Link MD fluticasone (FLONASE) 50 mcg/nasal spray 1 spray by Nasal route Daily as needed for Allerg ies. Taking Alfredo Arciniega MD furosemide (LASIX) 20 mg tablet Take 1 tablet by mouth 2 times daily. Taking Differently 6 0 tablet Chace Higuera MD HYDROcodone-acetaminophen (NORCO) 7.5-325 mg per tablet Take 1 tablet by mouth every 6 samantha rs as needed for Pain. Taking 120 tablet Candido Link MD ketoconazole (NIZORAL) 2% cream Apply topically 2 times daily. Taking Differently 30 g Cl Steve Link MD latanoprost (XALATAN) 0.005% ophthalmic solution Place 1 drop into both eyes nightly. Jami Donohue MD metoprolol succinate (TOPROL-XL) 25 mg 24 hr tablet Take 1 tablet by mouth nightly. Taking 90 tablet Candido Link MD Multiple Vitamins-Minerals (MULTIVITAMIN GUMMIES ADULT PO) Take 1 gummy by mouth daily Devan ing Historical Provider, Multiple Vitamins-Minerals (PRESERVISION AREDS 2) CAPS Take 1 capsule by mouth 2 times millie ly. Taking [facility] nitroglycerin (NITROSTAT) 0.[address] 0.4 mg under the tongue every 5 minutes a s needed for Chest pain. Taking Historical ProviderMD ondansetron (ZOFRAN ODT) 4 mg disintegrating tablet Take 1 tablet by mouth every 6 hours a s needed for Nausea. Taking 15 tablet Mir Lux MD oxygen Inhale 3 L into the lungs continuous. ALETHEA: 99 months. Taking 1 Container Isabelle Link MD pantoprazole (PROTONIX) 40 mg tablet Take 1 tablet by mouth every morning (before breakfas t). Taking 90 tablet Candido Link MD polyethylene glycol (MIRALAX) packet Take 17 g by mouth Daily as needed for Constipation. Taking [facility] polyvinyl alcohol (LIQUITEARS) 1.4% ophthalmic solution Place 2 drops into both eyes every morning. Taking Historical Provider, predniSONE (DELTASONE) 10 mg tablet Take 1 tablet by mouth Daily. Taking 30 tablet Dalton Link MD prochlorperazine 10 mg tablet Take 1 tablet by mouth every 8 hours as needed. Taking 30 ta blet Mir Lux MD Respiratory Therapy Supplies MISC Replacement O2 mask. Please evaluate and provide an O2 m ask that is more useful to the patient. Duration: Lifetime Dx: COPD, severe J44.9 Taking 1 e ach Lina Sherrin Sahib, MD senna (SENOKOT) 8.6 mg tablet Take 1 tablet by mouth Twice daily as needed for Constipati on. Taking 14 tablet Keyur Carvajal MD sodium chloride (OCEAN) 0.65% nasal spray 2 sprays by Each Nare route. two to three times daily as needed for nasal dryness Taking Historical Provider, UNABLE TO FIND Powder free dispoable gloves, size large Taking 2 Box Candido Garibay MD Medication review performed and electronically signed by Gayatri Aldana, Jalousie Installer 02/03/2020 2:55 PM Reviewed by Autumn Sutherland, PharmD 02/03/2020 3:25 PM Ina Calles, PharmD - 02/03/2020 10:43 AM PDTFormatting of this note might be different from the shawn lCedric VANCOMYCIN PER PHARMACY PROTOCOL: AMS/Drug Name - Vancomycin Patient: Ángela Crowley [id number] Admit: 01/31/2020 8:15 AM RELEVANT ALLERGIES: metronidazole (n/v, gi upset) 89 yrs old female patient admitted on 01/31/2020 for acute respiratory failure with hypoxia , acute systolic congestive heart failure, pressure injury of deep tissue of sacral region. Patient is receiving vancomycin starting on 02/03/20 for CAP and purulent SSTI of sacral decu bitous. Patient has a past medical history of Aortic stenosis, COPD (chronic obstructive pu lmonary disease) ([facility]), Coronary artery disease, Kidney stone, MRSA (methicillin resistant S taphylococcus aureus) (11/2019), Rheumatic fever, Tuberculosis, and Venereal disease. . Risk factors for MDR organisms include recent healthcare contact, recent antibiotic use, h/o MRS A. HPI: presents with feelings of weakness, vomiting and increasing pain over her coccyx. This patient c/o abdominal cramping and has a large coccygeal/sacral decubitus that is causing h er significant pain. Antimicrobials - Current Antibiotic Dates of Therapy Vancomycin 02/02- Unasyn 02/02- Antimicrobials - Discontinued Antibiotic Dates of Therapy Levofloxacin 01/30-02/01 Historical Vancomycin dosing (previous & current encounter): 12/01/19-12/08/19 starting dos ing 1000 mg q24hr (scr 0.70) trough 12, dose increased to 600 mg q12hr (scr 0.58) troughs 17 , 18.8, 21.4, dose decreased to 500 mg q12hr (scr 0.69) discontinued before next trough Micro/Cultures/Diagnostics: Microbiology Results (Last 14 Days by Collected Date with Culture/Sensitivity) Procedure Component Value Units Date/Time Culture, Wound, Smear [[id number]] Order Status: Sent Lab Status: No result Specimen: Tissue from Vertebrae, Sacral Culture, Anaerobic [[id number]] Order Status: Sent Lab Status: No result Specimen: Tissue from Vertebrae, Sacral Culture, Wound, Smear, w/Anaerobe [[id number]] Order Status: Sent Lab Status: No result Specimen: Tissue from Vertebrae, Sacral Narrative: The following orders were created for panel order Culture, Wound, Smear, w/Anaerobe. Procedure Abnormality Status --------- ------ Culture, Wound, Smear[[id number]] Culture, Anaerobic[[id number]] Please view results for these tests on the individual orders. Culture, Urine [[id number]] Collected: 02/02/20 0344 Order Status: Completed Lab Status: Preliminary result Updated: 02/03/20 0835 Specimen: Urine, Unspecified Source Culture >100,000 CFU/ml Yeast species Comment: Isolating for additional information. Stool Pathogens, NAAT [[id number]] (Normal) Collected: 02/01/20 09 Order Status: Completed Lab Status: Final result Updated: 02/01/20 1444 Specimen: Stool Campylobacter, NAAT Not Detected Salmonella, NAAT Not Detected Shigella NAAT Not Detected Vibrio, NAAT Not Detected Yersinia enterocolitica, NAAT Not Detected Shigatoxin 1 Not Detected Shigatoxin 2 Not Detected Clostridioides difficle NAAT reflex to Tox Ag [[id number]] Collected: 02/01/20 09 Order Status: Completed Lab Status: Final result Updated: 02/01/20 1210 Specimen: Stool Narrative: The following orders were created for panel order Clostridioides difficle NAAT reflex to T ox Ag. Procedure Abnormality Status --------- ------ Clostridioides difficile...[[id number]] Final result Please view results for these tests on the individual orders. Clostridioides difficile NAAT Reflex [[id number]] Collected: 02/01/20 0901 Order Status: Completed Lab Status: Final result Updated: 02/01/20 1210 Specimen: Stool C. difficile, Interp Negative Comment: No Toxigenic C. difficile detected. Consider other causes of Diarrhea. Repeat te sting should not be performed within 7 days. C. difficile, NAAT Negative Culture, Blood [[id number]] Collected: 01/31/20 1721 Order Status: Completed Lab Status: Preliminary result Updated: 02/01/20 0531 Specimen: Blood from Line Culture No growth: Monitored continually by instrument for 5 days Influenza A and B RNA, NAAT [[id number]] (Normal) Collected: 01/31/20 1514 Order Status: Completed Lab Status: Final result Updated: 01/31/20 1557 Specimen: Tissue from Nasopharynx Influenza A PCR Negative Influenza B PCR Negative Respiratory pathogen panel, NAAT [[id number]] (Normal) Collected: 01/31/20 1513 Order Status: Completed Lab Status: Final result Updated: 01/31/20 1804 Specimen: Body Fluid from Nasopharynx Parainfluenza 1 Not Detected Adenovirus Not Detected Human Metapneumovirus Not Detected Rhinovirus/Enterovirus Not Detected Parainfluenza 3 Not Detected Coronavirus (COVID-19) NAAT [[id number]] (Normal) Collected: 01/31/20 0947 Order Status: Completed Lab Status: Final result Updated: 01/31/20 194 Specimen: Tissue from Nasopharynx SARS coronavirus 2 NAAT Not Detected Comment: See Scanned Report [facility] STAT instructions for COVID-19 tracking [[id number]] Collected: 01/31/20 0947 Order Status: Completed Lab Status: Final result Updated: 01/31/20 194 Specimen: Tissue from Nasopharynx [facility] COVID STAT instruction done Culture, Blood [[id number]] Collected: 01/31/20 0907 Order Status: Completed Lab Status: Preliminary result Updated: 02/03/20 0921 Specimen: Peripheral Blood Culture No growth: Monitored continually by instrument for 5 days Relevant cultures from previous admits: Date Source Organisms Sensitivities 12/03/19 Resp MRSA S: linezolid, minocycline, tetracycline, tigecycline, bactrim, vanco 11/24/19 resp Pseudomonas putida pansensitive 11/18/19 urine E. coli pansensitive Enterococcus faecalis pansensitive 08/21/19 urine Enterococcus faecium Sens: amp, pen, vanco E.coli pansensitive 07/21/19 resp Pseudomonas aeruginosa UA: 02/01 positive Admission Wt: Weight: 53.5 kg (117 lb 15.1 oz) Current Wt: Weight: 50.4 kg (111 lb 3.2 oz) Min/Max Temp past 24 hours:Temp Av.4 C (97.5 F) Min: 36 C (96.8 F) Max: 36. 7 C (98.1 F) Estimated Creatinine Clearance: 34 mL/min (based on SCr of 0.89 mg/dL). Intake/Output Summary (Last 24 hours) at 02/03/2020 1043 Last data filed at 02/03/2020 0627 Gross per 24 hour Intake 575 ml Output 750 ml Net -175 ml Temp: [36 C (96.8 F)-36.7 C (98.1 F)] 36.5 C (97.7 F) Pulse: [86-101] 99 Resp: [18-20] 20 BP: (102-159)/(49-85) 159/85 Recent Labs Lab 02/03/20 0618 02/02/20 0640 02/01/20 0634 02/01/20 0520 01/31/20 0907 WBC 13.4* 13.6* -- 13.3* 14.3* CREA 0.89 0.94 0.93 -- 1.06* LACTATE -- -- -- -- 1.0 PROCALCITONI -- -- -- -- 0.23 CRP -- -- -- -- 99.10* Imagin/27 CXR: no acute findings 01/30 CT chest abdomen pelvis: 1. new but healing appearing fracture of the right inferior p ubic ramus compared with imaging of oct 27. No acute fracture is identified. 2. Chronic smal l dependent right pleural effusion with overall improved clustered nodularity and mucous plu gging in the lungs, favoring airway centered infection or inflammation. 3. Chronic, marked b iliary ductal dilation and prominence of the pancreatic duct. Consider follow-up non-emergen t mrcp if further characterization is desired. 4. Mildly prominent, fluid-filled small bowel in the left abdomen without evidence of obstruction. 5. Improved wall thickening and mesent lorena stranding in the rectosigmoid region. 6. Extensive vascular calcification with chronic enlargement of the main pulmonary artery, suggesting pulmonary arterial hypertension. 01/30 CT head: no evidence of acute intracranial disease. Date Time of Vancomycin draw Vancomycin result LEVEL or TROUGH Serum Creatinine CrCl (mL/mi n) Vanco load/bolus Vanco dose - current Vanco dose - new 02/02 - - - 0.89 34 - - 1000 mg q24hr Assessment: Vancomycin Day # 1 Other antibiotics: Unasyn Target Trough: 15-20 mcg/ml for CAP and purulent SSTI of sacral decubitous WBC: leukcoytosis; Renal: SCr improved (baseline scr ~0.6); Temp: afebrile; Culture: 01/05 peripheral blood: ngtd, 01/30 covid neg, 01/30 resp panel neg, 01/30 flu neg, 01/30 blood from line: ngtd, 01/31 cdiff neg, 02/01 urine: >100,000 cfu/ml yeast sp, 02/02 tissue from vertebra e, sacral: pending; VS: wnl, occasionally hr >90 Renal function: UOP: 0.6 mL/kg/hr, declined Plan: 1. Vancomycin 1000 mg (~20 mg/kg) IVPB q24h 2. Vancomycin trough ordered for 02/06/20 @ 1100 (draw 60 minutes prior to hanging the 4th do se) 3. Serum creatinine DAILY for first 3 days, then at least every 3 days while on vancomycin. 4. Will monitor renal function, clinical status, infection markers daily with troughs and d ose adjustment as needed. Definitions: For the purpose of this protocol, "trough" means a steady state trough before the 4th dose of the initial/new dosing regimen and "level" means all other levels drawn including before the 3rd dose References: Vancomycin dosing protocol IDSA guidelines Pharmacist-Driven Procalcitonin Protocol Per P&T-approved Vancomycin Dosing and Monitoring Protocol Electronically signed by: Ina Vann PharmD 02/03/2020 10:43 AM Tammy Nguyen PharmD - 02/03/2020 10:35 AM PDT . RENAL DOSE ADJUSTMENT PER PHARMACY PROTOCOL: Subjective/Objective: Ángela Crowley is a 89 y.o. year old female admitted on 01/31/2020 8:15 AM and is rece iving AMPICILLIN/SULBACTAM BP 159/85 | Pulse 99 | Temp 36.5 C (97.7 F) (Oral) | Resp 20 | Ht 1.676 m (5' 6") | Wt 50.4 kg (111 lb 3.2 oz) | SpO2 98% | BMI 17.95 kg/m Intake/Output Summary (Last 24 hours) at 02/03/2020 1035 Last data filed at 02/03/2020 0627 Gross per 24 hour Intake 575 ml Output 750 ml Net -175 ml Recent Labs Lab 02/03/20 0618 02/02/20 0640 02/01/20 0634 CREA 0.89 0.94 0.93 Estimated Creatinine Clearance: 34 mL/min (based on SCr of 0.89 mg/dL). Date Day of therapy Creatinine CrCl (mL/min) Dose-current Dose-new 02/03/20 1 0.95 ~30 3 gm q6hr 3gm q8hr Assessment/Plan: 1. For creatinine clearance =>30 mL/min, extend interval of AMPICILLIN/SULBACTAM as above. 2. For crcl 15-29, extend interval to q12h 3. Pharmacy will continue to follow and adjust dose as appropriate to clinical condition an d creatinine clearance changes RENAL DOSE ADJUSTMENT PROTOCOL Electronically signed by: Talon BeltránD 02/03/2020 10:35 AM Chace Gusman MD - 02/03/2020 10:[address] [facility] HOSPITALIST PROGRESS NOTE Patient: Ángela Crowley : 1930: Age: 89 y.o. MedRec: [id number] PCP: Candido Link MD Admission date: 01/31/2020 Hospital day # : 3 Physician author: Chace Higuera MD Today: 02/03/2020 Assessment and Hospital Course Active Hospital Problems Diagnosis Acute metabolic encephalopathy Pressure injury of deep tissue of sacral region Acute systolic congestive heart failure Acute respiratory failure with hypoxia Gastroenteritis Resolved Hospital Problems No resolved problems to display. 89F PMHx COPD on 2-3L [place] Home O2, TAVR, CHFpEF, presented from home with acute metabolic en cephalopathy 2/2 medications vs infectious process. Treating for pneumonia seen on CT chest. UA positive for UTI. Possible evidence Plan #Acute metabolic encephalopathy, stable Unclear etiology, possible medication induced, infectious, CHF history, per notes is baseli ne lucid and oriented. On 01/31 patient is Alert but oriented x1 not to place or time. Passed FRONT OFFICE REPRESENTATIVE evaluation with dysphagia diet ordered on 01/31 COVID 19 test negative on 01/30 CT head/chest/abd/pelvis identified small right pleural effusion with possible infection pr esent that can be possible pneumonia. No clear signs of acute abdominal infection. No acute intracranial abnormalities -hold opioids for AMS, tylenol for pain -delirium precautions -continue home dose of lexapro 5mg daily -treating infectious causes of possible gastroenteritis vs pneumonia vs UTI vs sacral decub infection #Abdominal pain possible gastroenteritis, improved Diffuse abdominal tenderness to deep palpation. Leukocytosis noted at 14.3 on admission, do wntrend to 13.3->13.6->13.4 -Cdiff and stool pathogens negative. No diarrhea since admission -On Unasyn/vanc -zofran PRN, famotidine #Possible Pneumonia #Hx of COPD, not in acute exacerbation Home O2 is 2-3L NC currently on home O2 on evaluation. Has history of prior MRSA PNA. -F/u cultures -Continue Unasyn/Vanc -nebs -continue chronic home dose of prednisone 10mg daily #UTI No current complaints of urinary burning, some incontinence during admission. UA in am 02/01 positive for UTI Changed levaquin to Vanc/Unasyn for also concern for infected sacral decub, will continue t o follow up Urine cultures. #CHFpEF exacerbation # s/p TAVR #Type 2 [place] Last echo showed EF 65%, likely CHFpEF. troponins stable, no chest pain during admission. 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 Repeat BNP 02/01 635 Changed lasix 20IV BID to 20po BID on 02/01, clinically euvolemic, lsaix 20mg PO BID is home dose Continue coreg Continue aspirin/statin Trend I/Os, daily weights #FAITH Improved, continue to monitor daily #Sacral Decubitous, Stage 3 Continue wound care -concerned about stool tracking up to wound dressing causing infection of the sacral ulcer, concern for worsening infection in area. Changed antibiotics to cover MRSA and anaerobes, V anc and unasyn from levaquin #Anemia Stable #Hypernatremia 150->149->146, recheck this pm. Continue holding IVFs, will continue to monitor Na daily, e ncouraging PO intake #Esophageal dysphagia #New diagnosis of achalasia Found to have significant dysphagia on FRONT OFFICE REPRESENTATIVE evaluation. Will require upper GI workup per FRONT OFFICE REPRESENTATIVE . Recommend reflux precautions and puree diet. Will d/w GI for possible EGD and esophagram f or motility. EGD was last done 08/2019 with no evidence of cause of dysphagia. Given previou s evaluation, the patient could benefit from manometry outpatient and would not benefit from repeat EGD at this time. Recommended esophagram while inpatient. 02/02 Esophagram shows lower esophageal sphincter spasm likely related to achalasia. D/w Dr. Sydney PEREZ and next step would be to perform manometry as outpatient for confirmation of bhavani lasia and to approach treatment as outpatient. Continue dysphagia diet #malnutrition I attest that this clinical assessment using ASPEN criteria 1 is accurate for this patient and supports that as a medical diagnosis. A specific nutrition treatment plan will be imple mented as outlined in the registered dietitian's plan of care. Nutrition Diagnosis: Severe protein-calorie malnutrition Type, Severe: Chronic illness Weight Loss: Greater than 7.5% in 3 months (8% unintended weight loss, BMI 17.95) Energy Intake: Less than or equal to 50% of estimated energy intake compared to needs in gr eater than or equal to 5 days (eating 10-45% of dysphagia diet since admit) Body Fat: Moderate depletion Muscle Mass: Severe depletion DVT PPx: heparin subq GI PPx: pepcid Diet: puree diet, 1800ml fluid restriction, Na 2gm Dispo: PT/OT ordered. Possible SNF vs home with assist in 1-2 more days Chace Higuera MD 02/03/2020 10:22 AM [facility] Subjective CC No pain in abdomen. Pain in lower back. Pain in left shoulder. WBC continued to be elevated , afebrile. On turning patient she had increased pain. Hard of hearing this am ran out of le ft ear hearing aide battery. Continued on home 3L NC Declared she wants to see her son this am, however because of lockdown there are no visitor s, continued to talk to son over phone for updates. ROS See above Objective Exam General NAD, AOx1, not to place or time, frail appearance Cardiac RRR, no murmurs rubs or gallups Extremities No edema No shoulder tenderness on palpation, ROM limited by pain. Sacral decubitous stage 3 with some white discharge noted, some stool tracking up to wound dressing. Surrounding erythema noted Lung CTA bilaterally Abdominal Generalized tenderness to deep palpation Neuro NFND, left arm limited due to pain when moving shoulder Serial weights: Filed Weights: 01/31/20 0838 02/01/20 0500 02/02/20 0442 02/03/20 0400 Weight: 53.5 kg (117 lb 15.1 oz) 51.9 kg (114 lb 6.4 oz) 50.1 kg (110 lb 7.2 oz) 50.4 kg (1 11 lb 3.2 oz) Most recent weight: Input and output 2 shifts and 3 shifts: Wt Readings from Last 1 Encounters: 02/03/20 50.4 kg (111 lb 3.2 oz) I/O last 24 Hours: In: 575 [P.O.:575] Out: 750 [Urine:750] I/O last 3 completed shifts: In: 925 [P.O.:925] Out: 1100 [Urine:1100] Vitals Ranges: Temp: [36 C (96.8 F)-36.7 C (98.1 F)] 36.5 C (97.7 F) Pulse: [86-101] 99 Resp: [18-20] 20 BP: (102-159)/(49-85) 159/85 Vitals: Temp: 36.5 C (97.7 F) BP: 159/85 Pulse: 99 Resp: 20 SpO2: 98 % SpO2 98 % on nasal cannula at flow rate 2L/min Diet and Supplements Diet Diet general; dysphagia mechanical; thin liquids allowed; sodium restricted 2 gm; 1800 ml fluid; Effective Now Number of Occurrences: Until Specified Order Comments: Red tray 1:1 International Dysphagia Diet Standardization Initiative (IDD SI): Ángela is currently at Food Level 5, Minced and Moist (formerly dysphagia mechanically a ltered) and Drink Level 0, Thin. Order Questions: Type Diet general Texture modifications dysphagia mechanical Fluid consistency modifications thin liquids allowed sodium restictions sodium restricted 2 gm fluid volume restictions 1800 ml fluid Nourishments Dietary nutrition supplements Boost; 1 Can Number of Occurrences: Until Specified Order Comments: With meals Order Questions: Supplement Boost Volume: 1 Can Objective Data Allergies: Allergies Allergen Reactions Flagyl [Metronidazole] Nausea And Vomiting and GI Upset Percocet [Oxycodone] Unknown Pregabalin Unknown Lyrica Current Medications: Current Facility-Administered Medications Medication Dose Route Frequency Provider Last Rate Last Dose acetaminophen (TYLENOL) tablet 650 mg 650 mg Oral Q6H PRN Félix Gan MD 650 mg at 02/03/20 0646 albuterol-ipratropium 2.5-0.5 mg/3 mL nebulizer solution 3 mL 3 mL Nebulization RT Q6H Aida Mills MD 3 mL at 02/03/20 0818 ampicillin-sulbactam (UNASYN) 3 g in sodium chloride 0.9% 100 mL IVPB 3 g Intravenous 4 times per day Chace Higuera MD aspirin chewable tablet 81 mg 81 mg Oral Daily Aida Mills MD 81 mg at 02/03/20 081 2 atorvaSTATin (LIPITOR) tablet 20 mg 20 mg Oral Nightly Aida Mills MD 20 mg at 01/05 06/25 210 brimonidine (ALPHAGAN) 0.2% ophthalmic solution 1 drop 1 drop Both Eyes BID Aida hernandez MD 1 drop at 02/03/20 0813 budesonide (PULMICORT) nebulizer solution 0.5 mg 0.5 mg Nebulization RT BID Aida hernandez MD 0.5 mg at 02/03/20 0818 carvedilol (COREG) tablet 3.125 mg 3.125 mg Oral BID WC Aida Mills MD 3.125 mg at 02/03/20 0812 dorzolamide (TRUSOPT) 2% ophthalmic solution 1 drop 1 drop Both Eyes BID Aida Mills MD 1 drop at 02/03/20 0813 escitalopram (LEXAPRO) tablet 5 mg 5 mg Oral Daily Chace Higuera MD 5 mg at 0 02/03/20 0812 famotidine (PEPCID) injection 20 mg 20 mg Intravenous Daily Aida Mills MD 20 mg at 02/03/20 0812 furosemide (LASIX) tablet 20 mg 20 mg Oral BID (8 and 16) Chace Higuera MD 20 mg at 02/03/20 0812 heparin 5,000 units/mL injection 5,000 Units 5,000 Units Subcutaneous 2 times per day Aida Mills MD 5,000 Units at 02/03/20 0812 HYDROcodone-acetaminophen (NORCO) 5-325 mg per tablet 1-2 tablet 1-2 tablet Oral Q6H P RN Chace Higuera MD lactobacillus GG (CULTURELLE) capsule 1 capsule 1 capsule Oral BID Aida Mills MD 1 capsule at 02/03/20 0812 latanoprost (XALATAN) 0.005% ophthalmic solution 1 drop 1 drop Both Eyes Nightly Gagandeep Mills MD 1 drop at 02/02/20 2108 ondansetron (ZOFRAN) injection 4 mg 4 mg Intravenous Q6H PRN Aida Mills MD predniSONE (DELTASONE) tablet 10 mg 10 mg Oral Daily Chace Higuera MD 10 mg a t 02/03/20 0812 vancomycin per pharmacy Other Pharmacy Consult Chace Higuera MD Current Infusions: Hematology and anemia Recent Labs Lab 02/03/20 0618 02/02/20 0640 02/01/20 0520 01/31/20 0907 WBC 13.4* 13.6* 13.3* 14.3* HGB 7.8* 8.1* 8.0* 9.4* HCT 25.4* 26.3* 27.0* 30.4* PLT 139* 149 160 185 NEUPCT 85.3* 89.0* -- 86.4* Recent Labs Lab 01/31/20 0907 PROTIME 14.6* INR 1.1 No results for input(s): IRON, TIBC, PCTSAT, FERRITIN, TSH, [id number], FOLATE in the last 168 hours. Inflammatory markers Recent Labs Lab 01/31/20 0907 LACTATE 1.0 PROCALCITONI 0.23 CRP 99.10* Chemistry Recent Labs Lab 02/03/20 0618 02/02/20 1222 02/02/20 0640 02/01/20 0634 01/31/20 0907 GLU 86 -- 91 57* 97 NA 146* 146* 149* 150* 144 K 3.6 -- 3.0* 3.1* 3.6 CL 114* -- 114* 113* 108* CO2 29 -- 29 28 30 ANIONGAP 3 -- 6 9 6 BUN 28* -- 32* 34* 39* CREA 0.89 -- 0.94 0.93 1.06* GFRNONAA 60 -- 56* 57* 49* CALCIUM 7.6* -- 7.8* 7.9* 7.8* ALBUMIN -- -- -- -- 2.5* TOTALPROTEIN -- -- -- -- 5.1* BILITOT -- -- -- -- 0.6 ALKPHOS -- -- -- -- 132* ALT -- -- -- -- 12 AST -- -- -- -- 21 Recent Labs Lab 02/03/20 0618 02/02/20 0640 02/01/20 0634 MG 1.8 1.8 1.8 Recent Labs Lab 01/31/20 0907 LIPASE 16 No results for input(s): TRIG, CHOL, HDL, LDL in the last 168 hours. No results for input(s): AMMONIA in the last 168 hours. Cardiology & Digoxin Recent Labs Lab 02/02/20 0640 01/31/20 2107 01/31/20 1721 01/31/20 0907 TROPONIN -- 0.07* 0.07* 0.09* BNP 635* -- -- 850* ABG No results for input(s): PHART, PO2ART, VXD2QLB, JVN3NPE, BEART, W6DBBPDG in the last 168 h ours. No results for input(s): SPECSOURCE, PHPOCB, PCO2, PO2, HCO3, TCO2, BEART, [id number] in the last 168 hours. Drug of overdose and abuse No results for input(s): ALCOHOL, ACTMN, SALICYLATE in the last 168 hours. No results for input(s): AMPHEQUAL, BARBITURATE, BENZSCR, CANNIBSCR, AMPHETAMINE, METHADSCR , OPIATESCR in the last 168 hours. Urinalysis Recent Labs Lab 02/02/20 0344 01/31/20 1220 GLUCOSEU Negative -- WBCUA >100* 0-2 RBCUA 25-50* 0-2 SQUAMEPIUA 5-10* 0-2 BACTERIAUA 1+* Negative Point of care glucose No results for input(s): POCGLU in the last 168 hours. Micro results more choices using dot micro (below is last 7 days) Microbiology Results (Last 7) Date with Culture/Sensitivity) Procedure Component Value Units Date/Time Culture, Wound, Smear [[id number]] Order Status: Sent Lab Status: No result Specimen: Tissue from Vertebrae, Sacral Culture, Anaerobic [[id number]] Order Status: Sent Lab Status: No result Specimen: Tissue from Vertebrae, Sacral Culture, Wound, Smear, w/Anaerobe [[id number]] Order Status: Sent Lab Status: No result Specimen: Tissue from Vertebrae, Sacral Narrative: The following orders were created for panel order Culture, Wound, Smear, w/Anaerobe. Procedure Abnormality Status --------- ------ Culture, Wound, Smear[[id number]] Culture, Anaerobic[[id number]] Please view results for these tests on the individual orders. Culture, Urine [[id number]] Collected: 02/02/20 0344 Order Status: Completed Lab Status: Preliminary result Updated: 02/03/20 0835 Specimen: Urine, Unspecified Source Culture >100,000 CFU/ml Yeast species Comment: Isolating for additional information. Stool Pathogens, NAAT [[id number]] (Normal) Collected: 02/01/20 0901 Order Status: Completed Lab Status: Final result Updated: 02/01/20 1444 Specimen: Stool Campylobacter, NAAT Not Detected Salmonella, NAAT Not Detected Shigella NAAT Not Detected Vibrio, NAAT Not Detected Yersinia enterocolitica, NAAT Not Detected Shigatoxin 1 Not Detected Shigatoxin 2 Not Detected Clostridioides difficle NAAT reflex to Tox Ag [[id number]] Collected: 02/01/20 0901 Order Status: Completed Lab Status: Final result Updated: 02/01/20 1210 Specimen: Stool Narrative: The following orders were created for panel order Clostridioides difficle NAAT reflex to T ox Ag. Procedure Abnormality Status --------- ------ Clostridioides difficile...[[id number]] Final result Please view results for these tests on the individual orders. Clostridioides difficile NAAT Reflex [[id number]] Collected: 02/01/20 0901 Order Status: Completed Lab Status: Final result Updated: 02/01/20 1210 Specimen: Stool C. difficile, Interp Negative Comment: No Toxigenic C. difficile detected. Consider other causes of Diarrhea. Repeat te sting should not be performed within 7 days. C. difficile, NAAT Negative Culture, Blood [[id number]] Collected: 01/31/20 1721 Order Status: Completed Lab Status: Preliminary result Updated: 02/01/20 0531 Specimen: Blood from Line Culture No growth: Monitored continually by instrument for 5 days Influenza A and B RNA, NAAT [[id number]] (Normal) Collected: 01/31/20 1514 Order Status: Completed Lab Status: Final result Updated: 01/31/20 1557 Specimen: Tissue from Nasopharynx Influenza A PCR Negative Influenza B PCR Negative Respiratory pathogen panel, NAAT [[id number]] (Normal) Collected: 01/31/20 1513 Order Status: Completed Lab Status: Final result Updated: 01/31/20 1804 Specimen: Body Fluid from Nasopharynx Parainfluenza 1 Not Detected Adenovirus Not Detected Human Metapneumovirus Not Detected Rhinovirus/Enterovirus Not Detected Parainfluenza 3 Not Detected Coronavirus (COVID-19) NAAT [[id number]] (Normal) Collected: 01/31/20 0947 Order Status: Completed Lab Status: Final result Updated: 01/31/20 1942 Specimen: Tissue from Nasopharynx SARS coronavirus 2 NAAT Not Detected Comment: See Scanned Report [facility] STAT instructions for COVID-19 tracking [[id number]] Collected: 04/27/20 0947 Order Status: Completed Lab Status: Final result Updated: 01/31/201940 Specimen: Tissue from Nasopharynx [facility] COVID STAT instruction done Culture, Blood [[id number]] Collected: 01/31/20906 Order Status: Completed Lab Status: Preliminary result Updated: 02/03/20920 Specimen: Peripheral Blood Culture No growth: Monitored continually by instrument for 5 days Radiology results (more choices using dot risresults) Fl Video Swallow W Speech Result Date: 02/02/2020 FL VIDEO SWALLOW W SPEECH 02/02/2020 11:12 AM HISTORY: Determine severity and type of dyspha manjeet. COMPARISON: None. PROTOCOL: The patient was administered various compounds coated with barium by the speech pathologist. Fluoroscopic images were acquired. FINDINGS/IMPRESSION: Oral phase characterized by interlabial escape, escape to floor of [place] th, slow prolonged chewing, residue collection on oral structures. Pharyngeal phase of swall ow characterized by swallow initiation at posterior surface of epiglottis, diminished pharyn geal stripping wave, base of tongue weakness, residue collection on pharyngeal structures. S creening of esophagus indicated significant stasis of bolus mid-lower (near LES) esophagus?a nd retrograde flow below level of UES suggesting presence of esophageal dysphagia. Consider referral to GI for further testing of esophageal function to determine type/severity and man agement as indicated. Overall mild oropharyngeal dysphagia. Airway protection sufficient. Pl ease see the speech pathologist report for further information. Dictated and Signed by: Roberto Rodriguez MD Electronically signed: 02/02/2020 2:05 PM Reference. This is NOT part of the patient's formal assessment section. In the assessment or plan section of notes the author may date some of the subsections with a number such as "" or "" to indicate the date of that entry or event. In the example below the 1st line is the original entry and the subsequent lines indicate flowing updates to the subsection: Example assessment subsection (such as CHF or CP or Pneumonia) Patient is improved today with resolution of symptoms th Worse with recurrence of symptoms requiring further testing Portions of this chart may have been created with [employer] voice recognition software. Occasi onal wrong-word or sound-alike substitutions may have occurred due to the inherent owen itations of voice recognition software. Please read the chart carefully and recognize, using context, where these substitutions have occurred dwar, Ina Obrien PharmD - 02/02/2020 3:18 PM PDTFormatting of this note might be different from the origin al. RENAL DOSE ADJUSTMENT PER PHARMACY PROTOCOL: Subjective/Objective: Ángela Crowley is a 89 y.o. year old female admitted on 01/31/2020 8:15 AM and is rece iving LEVOFLOXACIN BP 136/72 | Pulse 88 | Temp 36 C (96.8 F) (Oral) | Resp 18 | Ht 1.676 m (5' 6") | Wt 50.1 kg (110 lb 7.2 oz) | SpO2 98% | BMI 17.83 kg/m Intake/Output Summary (Last 24 hours) at 02/02/2020 1518 Last data filed at 02/02/2020 1300 Gross per 24 hour Intake 450 ml Output 700 ml Net -250 ml Recent Labs Lab 02/02/20 0640 02/01/20 0634 01/31/20 0907 CREA 0.94 0.93 1.06* Estimated Creatinine Clearance: 32 mL/min (based on SCr of 0.94 mg/dL). Date Day of therapy Creatinine CrCl (mL/min) Dose-current Dose-new 02/02/20 2 0.94 32 500 mg q24hr 750 mg q48hr Assessment/Plan: 1. For GI/PNA/UTI and creatinine clearance 20-50 mL/min, adjust dose of LEVOFLOXACIN as abo ve. 2. Pharmacy will continue to follow and adjust dose as appropriate to clinical condition an d creatinine clearance changes RENAL DOSE ADJUSTMENT PROTOCOL Electronically signed by: Ina Vann PharmD 02/02/2020 3:18 PM Chace Gusman MD - 02/02/2020 11:21 AM PDTFormatting of this note might be different from the origin al. [facility]PITAL[facility] PROGRESS NOTE Patient: Ángela Crowley : 1930: Age: 89 y.o. MedRec: [id number] PCP: Candido Link MD Admission date: 01/31/2020 Hospital day # : 2 Physician author: Chace Higuera MD Today: 02/02/2020 Assessment and Hospital Course Active Hospital Problems Diagnosis Acute metabolic encephalopathy Pressure injury of deep tissue of sacral region Acute systolic congestive heart failure Acute respiratory failure with hypoxia Gastroenteritis Resolved Hospital Problems No resolved problems to display. 89F PMHx COPD on 2-3L [place] Home O2, TAVR, CHFpEF, presented from home with acute metabolic en cephalopathy 2/2 medications vs infectious process. Treating for pneumonia seen on CT chest. UA positive for UTI. Possible evidence Plan #Acute metabolic encephalopathy, stable Unclear etiology, possible medication induced, infectious, CHF history, per notes is baseli ne lucid and oriented. On 01/31 patient is Alert but oriented x1 not to place or time. Passed FRONT OFFICE REPRESENTATIVE evaluation with dysphagia diet ordered on 01/31 COVID 19 test negative on 01/30 CT head/chest/abd/pelvis identified small right pleural effusion with possible infection pr esent that can be possible pneumonia. No clear signs of acute abdominal infection. No acute intracranial abnormalities -hold opioids for AMS, tylenol for pain -delirium precautions -continue home dose of lexapro 5mg daily -treating infectious causes of possible gastroenteritis vs pneumonia vs UTI #Abdominal pain possible gastroenteritis, improved Diffuse abdominal tenderness to deep palpation. Leukocytosis noted at 14.3 on admission, do wntrend to 13.3->13.6 -Cdiff and stool pathogens negative. No diarrhea since admission -continue IV levaquin (flagyl allergy) -zofran PRN, famotidine #Possible Pneumonia #Hx of COPD, not in acute exacerbation Home O2 is 2-3L [place] currently on home O2 on evaluation. Has history of prior MRSA PNA. -F/u cultures -Continue levaquin -nebs -continue chronic home dose of prednisone 10mg daily #UTI No current complaints of urinary burning, some incontinence during admission. UA in am 02/01 positive for UTI Will continue coverage with levaquin Follow up urine cultures #CHFpEF exacerbation # s/p TAVR #Type 2 [place] Last echo showed EF 65%, likely CHFpEF. troponins stable, no chest pain during admission. 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 Encouraging PO intake, holding IVFs for history of CHFpEF Continue to monitor daily #Esophageal dysphagia Found to have significant dysphagia on FRONT OFFICE REPRESENTATIVE evaluation. Will require upper GI workup per FRONT OFFICE REPRESENTATIVE . Recommend reflux precautions and puree diet. Will d/w GI for possible EGD and esophagram f or motility. EGD was last done 08/2019 with no evidence of cause of dysphagia. Given previou s evaluation, the patient could benefit from manometry outpatient and would not benefit from repeat EGD at this time. Recommended esophagram while inpatient. -f/u Esophagram DVT PPx: heparin subq GI PPx: pepcid Diet: puree diet, 1800ml fluid restriction, Na 2gm Dispo: PT/OT ordered. Likely SNF on discharge in 1-2 more days Chace Higuera MD 02/02/2020 11:21 AM [facility] Subjective CC No pain in the abdomen this am. Continued left shoulder and arm pain worse with movement. A febrile. Continued on 3L [place] ROS See above Objective Exam General NAD, AOx1, not to place or time Cardiac RRR, no murmurs rubs or gallups Extremities No edema No shoulder tenderness on palpation, ROM limited by pain. Lung CTA bilaterally Abdominal Generalized tenderness to deep palpation Neuro NFND, left arm limited due to pain when moving shoulder Serial weights: Filed Weights: 01/31/20 0838 02/01/20 0500 02/02/20 0442 Weight: 53.5 kg (117 lb 15.1 oz) 51.9 kg (114 lb 6.4 oz) 50.1 kg (110 lb 7.2 oz) Most recent weight: Input and output 2 shifts and 3 shifts: Wt Readings from Last 1 Encounters: 02/02/20 50.1 kg (110 lb 7.2 oz) I/O last 24 Hours: In: 450 [P.O.:450] Out: 950 [Urine:950] I/O last 3 completed shifts: In: 450 [P.O.:450] Out: 1450 [Urine:1450] Vitals Ranges: Temp: [35 C (95 F)-36.7 C (98 F)] 36 C (96.8 F) Pulse: [85-105] 89 Resp: [16-18] 16 BP: (88-138)/(46-67) 133/67 Vitals: Temp: 36 C (96.8 F) BP: 133/67 Pulse: 89 Resp: 16 SpO2: 98 % SpO2 98 % on nasal cannula at flow rate 3L/min Diet and Supplements Diet Diet general; puree; thin liquids allowed; sodium restricted 2 gm; 1800 ml fluid; Effectiv e Now Number of Occurrences: Until Specified Order Comments: Red tray 1:1 International Dysphagia Diet Standardization Initiative (IDDSI): Ángela is currently at Food Level 4, Pureed (formerly dysphagia pureed) and Drink Level 0, T hin. For more information, please visit: http://iddsi.org Order Questions: Type Diet general Texture modifications puree Fluid consistency modifications thin liquids allowed sodium restictions sodium restricted 2 gm fluid volume restictions 1800 ml fluid Nourishments Dietary nutrition supplements Boost; 1 Can Number of Occurrences: Until Specified Order Comments: With meals Order Questions: Supplement Boost Volume: 1 Can Objective Data Allergies: Allergies Allergen Reactions Flagyl [Metronidazole] Nausea And Vomiting and GI Upset Percocet [Oxycodone] Unknown Pregabalin Unknown Lyrica Current Medications: Current Facility-Administered Medications Medication Dose Route Frequency Provider Last Rate Last Dose acetaminophen (TYLENOL) tablet 650 mg 650 mg Oral Q6H PRN Félix Gan MD 650 mg at 02/01/20 2341 albuterol-ipratropium 2.5-0.5 mg/3 mL nebulizer solution 3 mL 3 mL Nebulization RT Q6H Aida Mills MD 3 mL at 02/02/20 0943 aspirin chewable tablet 81 mg 81 mg Oral Daily Aida Mills MD 81 mg at 02/02/20 080 8 atorvaSTATin (LIPITOR) tablet 20 mg 20 mg Oral Nightly Aida Mills MD 20 mg at 01/05 brimonidine (ALPHAGAN) 0.2% ophthalmic solution 1 drop 1 drop Both Eyes BID Aida hernandez MD 1 drop at 02/02/20 0821 budesonide (PULMICORT) nebulizer solution 0.5 mg 0.5 mg Nebulization RT BID Aida hernandez MD 0.5 mg at 02/02/20 0943 carvedilol (COREG) tablet 3.125 mg 3.125 mg Oral BID WC Aida Mills MD 3.125 mg at 02/02/20 0808 dorzolamide (TRUSOPT) 2% ophthalmic solution 1 drop 1 drop Both Eyes BID Aida Mills MD 1 drop at 02/02/20 0820 escitalopram (LEXAPRO) tablet 5 mg 5 mg Oral Daily Chace Higuera MD 5 mg at 0 02/02/20 0807 famotidine (PEPCID) injection 20 mg 20 mg Intravenous Daily Aida Mills MD 20 mg at 02/02/20 0803 furosemide (LASIX) injection 20 mg 20 mg Intravenous BID (8 and 16) Aida Mills MD 20 mg at 02/02/20 0757 heparin 5,000 units/mL injection 5,000 Units 5,000 Units Subcutaneous 2 times per day Aida Mills MD 5,000 Units at 02/02/20 0822 lactobacillus GG (CULTURELLE) capsule 1 capsule 1 capsule Oral BID Aida Mills MD 1 capsule at 02/02/20 0808 latanoprost (XALATAN) 0.005% ophthalmic solution 1 drop 1 drop Both Eyes Nightly Gagandeep Mills MD 1 drop at 02/01/20 2029 levoFLOXacin in dextrose (LEVAQUIN) IVPB 500 mg 500 mg Intravenous Daily Aida Mills MD 100 mL/hr at 02/02/20 1019 500 mg at 02/02/20 1019 ondansetron (ZOFRAN) injection 4 mg 4 mg Intravenous Q6H PRN Aida Mills MD predniSONE (DELTASONE) tablet 10 mg 10 mg Oral Daily Chace Higuera MD 10 mg a t 02/02/20 0808 Current Infusions: Hematology and anemia Recent Labs Lab 02/02/20 0640 02/01/20 0520 01/31/20 0907 WBC 13.6* 13.3* 14.3* HGB 8.1* 8.0* 9.4* HCT 26.3* 27.0* 30.4* PLT 149 160 185 NEUPCT 89.0* -- 86.4* Recent Labs Lab 01/31/20 0907 PROTIME 14.6* INR 1.1 No results for input(s): IRON, TIBC, PCTSAT, FERRITIN, TSH, [id number], FOLATE in the last 168 hours. Inflammatory markers Recent Labs Lab 01/31/20 0907 LACTATE 1.0 PROCALCITONI 0.23 CRP 99.10* Chemistry Recent Labs Lab 02/02/20 0640 02/01/20 0634 01/31/20 0907 GLU 91 57* 97 NA 149* 150* 144 K 3.0* 3.1* 3.6 CL 114* 113* 108* CO2 29 28 30 ANIONGAP 6 9 6 BUN 32* 34* 39* CREA 0.94 0.93 1.06* GFRNONAA 56* 57* 49* CALCIUM 7.8* 7.9* 7.8* ALBUMIN -- -- 2.5* TOTALPROTEIN -- -- 5.1* BILITOT -- -- 0.6 ALKPHOS -- -- 132* ALT -- -- 12 AST -- -- 21 Recent Labs Lab 02/02/20 0640 02/01/20 0634 01/31/20 0907 MG 1.8 1.8 1.9 Recent Labs Lab 01/31/20 0907 LIPASE 16 No results for input(s): TRIG, CHOL, HDL, LDL in the last 168 hours. No results for input(s): AMMONIA in the last 168 hours. Cardiology & Digoxin Recent Labs Lab 01/31/20 2107 01/31/20 1721 01/31/20 0907 TROPONIN 0.07* 0.07* 0.09* BNP -- -- 850* ABG No results for input(s): PHART, PO2ART, TEZ5TPL, FGU0SDP, BEART, [id number] in the last 168 h ours. No results for input(s): SPECSOURCE, PHPOCB, PCO2, PO2, HCO3, TCO2, BEART, [id number] in the last 168 hours. Drug of overdose and abuse No results for input(s): ALCOHOL, ACTMN, SALICYLATE in the last 168 hours. No results for input(s): AMPHEQUAL, BARBITURATE, BENZSCR, CANNIBSCR, AMPHETAMINE, METHADSCR , OPIATESCR in the last 168 hours. Urinalysis Recent Labs Lab 02/02/20 0344 01/31/20 1220 GLUCOSEU Negative -- WBCUA >100* 0-2 RBCUA 25-50* 0-2 SQUAMEPIUA 5-10* 0-2 BACTERIAUA 1+* Negative Point of care glucose No results for input(s): POCGLU in the last 168 hours. Micro results more choices using dot micro (below is last 7 days) Microbiology Results (Last 7) Date with Culture/Sensitivity) Procedure Component Value Units Date/Time Culture, Urine [[id number]] Collected: 02/02/20 0344 Order Status: Resulted Lab Status: In process Updated: 02/02/20 0402 Specimen: Urine, Unspecified Source Stool Pathogens, NAAT [[id number]] (Normal) Collected: 02/01/20 0901 Order Status: Completed Lab Status: Final result Updated: 02/01/20 1444 Specimen: Stool Campylobacter, NAAT Not Detected Salmonella, NAAT Not Detected Shigella NAAT Not Detected Vibrio, NAAT Not Detected Yersinia enterocolitica, NAAT Not Detected Shigatoxin 1 Not Detected Shigatoxin 2 Not Detected Clostridioides difficle NAAT reflex to Tox Ag [[id number]] Collected: 02/01/20 09 Order Status: Completed Lab Status: Final result Updated: 02/01/20 1210 Specimen: Stool Narrative: The following orders were created for panel order Clostridioides difficle NAAT reflex to T ox Ag. Procedure Abnormality Status --------- ------ Clostridioides difficile...[[id number]] Final result Please view results for these tests on the individual orders. Clostridioides difficile NAAT Reflex [[id number]] Collected: 02/01/20 0901 Order Status: Completed Lab Status: Final result Updated: 02/01/20 1210 Specimen: Stool C. difficile, Interp Negative Comment: No Toxigenic C. difficile detected. Consider other causes of Diarrhea. Repeat te sting should not be performed within 7 days. C. difficile, NAAT Negative Culture, Blood [[id number]] Collected: 01/31/20 1721 Order Status: Completed Lab Status: Preliminary result Updated: 02/01/20 0531 Specimen: Blood from Line Culture No growth: Monitored continually by instrument for 5 days Influenza A and B RNA, NAAT [[id number]] (Normal) Collected: 01/31/20 1514 Order Status: Completed Lab Status: Final result Updated: 01/31/20 1557 Specimen: Tissue from Nasopharynx Influenza A PCR Negative Influenza B PCR Negative Respiratory pathogen panel, NAAT [[id number]] (Normal) Collected: 01/31/20 1513 Order Status: Completed Lab Status: Final result Updated: 01/31/20 1804 Specimen: Body Fluid from Nasopharynx Parainfluenza 1 Not Detected Adenovirus Not Detected Human Metapneumovirus Not Detected Rhinovirus/Enterovirus Not Detected Parainfluenza 3 Not Detected Coronavirus (COVID-19) NAAT [[id number]] (Normal) Collected: 01/31/20 0947 Order Status: Completed Lab Status: Final result Updated: 01/31/20 194 Specimen: Tissue from Nasopharynx SARS coronavirus 2 NAAT Not Detected Comment: See Scanned Report [facility] STAT instructions for COVID-19 tracking [[id number]] Collected: 01/31/20 0947 Order Status: Completed Lab Status: Final result Updated: 01/31/201940 Specimen: Tissue from Nasopharynx [facility] COVID STAT instruction done Culture, Blood [[id number]] Collected: 01/31/20 0907 Order Status: Completed Lab Status: Preliminary result Updated: 01/31/202120 Specimen: Peripheral Blood Culture No growth: Monitored continually by instrument for 5 days Radiology results (more choices using dot risresults) No results found. Reference. This is NOT part of the patient's formal assessment section. In the assessment or plan section of notes the author may date some of the subsections with a number such as "" or "" to indicate the date of that entry or event. In the example below the 1st line is the original entry and the subsequent lines indicate flowing updates to the subsection: Example assessment subsection (such as CHF or CP or Pneumonia) Patient is improved today with resolution of symptoms 24th Worse with recurrence of symptoms requiring further testing Portions of this chart may have been created with [employer] recognition software. Occasi onal wrong-word or sound-alike substitutions may have occurred due to the inherent owen itations of voice recognition software. Please read the chart carefully and recognize, using context, where these substitutions have occurred erry, Chace hobson MD - 02/01/2020 12:29 PM PDTFormatting of this note might be different from the origin al. [place] HOSPITALIST PROGRESS NOTE Patient: Ángela Crowley : 1930: Age: 89 y.o. MedRec: [id number] PCP: Candido Link MD Admission date: 01/31/2020 Hospital day # : 1 Physician author: Chace Higuera MD Today: 02/01/2020 Assessment and Hospital Course Active Hospital Problems Diagnosis Acute metabolic encephalopathy Pressure injury of deep tissue of sacral region Acute systolic congestive heart failure Acute respiratory failure with hypoxia Gastroenteritis Resolved Hospital Problems No resolved problems to display. 89F PMHx COPD, TAVR, CHF?, presented from home with acute metabolic encephalopathy 2/2 medi cations vs infectious process. Treating for pneumonia seen on CT chest Plan #Acute metabolic encephalopathy Unclear etiology, possible medication induced, infectious, CHF history, per notes is baseli ne lucid and oriented. On 01/31 patient is Alert but oriented x1 not to place or time. Passed FRONT OFFICE REPRESENTATIVE evaluation with dysphagia diet ordered. COVID 19 test negative on 01/30 CT head/chest/abd/pelvis identified small right pleural effusion with possible infection pr esent that can be acute pneumonia. No clear signs of acute abdominal infection. No acute int racranial abnormalities -hold opioids for AMS, tylenol for pain. Treat infectious causes as below. -delirium precautions -continue home dose of lexapro 5mg daily #Abdominal pain possible gastroenteritis Diffuse abdominal tenderness to deep palpation. Leukocytosis noted at 14.3 on admission, do wntrend to 13.3 -f/u Cdiff/stool pathogens -monitor for diarrhea -continue PO vancomycin and levaquin (flagyl allergy) -zofran PRN, famotidine. Hold PPI for possible cdiff #Possible Pneumonia #Hx of COPD, not in acute exacerbation Home O2 is 2-3L [place] currently on home O2 on evaluation. Has history of prior MRSA PNA. -F/u cultures -Continue levaquin -nebs -continue chronic home dose of prednisone 10mg daily #CHFpEF exacerbation # s/p TAVR #Type 2 [place] Last echo showed EF 65%, likely CHFpEF. troponins stable, no chest pain during admission. 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 Chace Higuera MD 02/01/2020 12:31 PM [facility] Subjective CC Pain noted in left arm with movement, pain in lower back and some in abdomen. ROS See above Objective Exam General NAD, AOx1 Cardiac RRR, no murmurs rubs or gallups Extremities No edema No shoulder tenderness on palpation, ROM limited by pain. Lung CTA bilaterally Abdominal Generalized tenderness to deep palpation Neuro NFND, left arm limited due to pain when moving shoulder Serial weights: Filed Weights: 01/31/20 0838 02/01/20 0500 Weight: 53.5 kg (117 lb 15.1 oz) 51.9 kg (114 lb 6.4 oz) Most recent weight: Input and output 2 shifts and 3 shifts: Wt Readings from Last 1 Encounters: 02/01/20 51.9 kg (114 lb 6.4 oz) I/O last 24 Hours: In: - Out: 1300 [Urine:1300] I/O last 3 completed shifts: In: - Out: 1300 [Urine:1300] Vitals Ranges: Temp: [36.1 C (97 F)-36.9 C (98.5 F)] 36.7 C (98 F) Pulse: [80-115] 85 Resp: [13-22] 16 BP: (88-147)/(40-90) 88/46 Vitals: Temp: 36.7 C (98 F) BP: (!) 88/46 Pulse: 85 Resp: 16 SpO2: 98 % SpO2 98 % on nasal cannula at flow rate 2L/min Diet and Supplements Diet Diet general; puree; thin liquids allowed; sodium restricted 2 gm; 1800 ml fluid; Effectiv e Now Number of Occurrences: Until Specified Order Comments: Red tray 1:1 International Dysphagia Diet Standardization Initiative (IDDSI): Ángela is currently at Food Level 4, Pureed (formerly dysphagia pureed) and Drink Level 0, T hin. For more information, please visit: http://iddsi.org Order Questions: Type Diet general Texture modifications puree Fluid consistency modifications thin liquids allowed sodium restictions sodium restricted 2 gm fluid volume restictions 1800 ml fluid Objective Data Allergies: Allergies Allergen Reactions Flagyl [Metronidazole] Nausea And Vomiting and GI Upset Percocet [Oxycodone] Unknown Pregabalin Unknown Lyrica Current Medications: Current Facility-Administered Medications Medication Dose Route Frequency Provider Last Rate Last Dose acetaminophen (TYLENOL) tablet 650 mg 650 mg Oral Q6H PRN Félix Gan MD 650 mg at 02/01/20 0838 albuterol-ipratropium 2.5-0.5 mg/3 mL nebulizer solution 3 mL 3 mL Nebulization RT Q6H Aida Mills MD 3 mL at 02/01/20 0941 aspirin chewable tablet 81 mg 81 mg Oral Daily Aida Mills MD 81 mg at 02/01/20 083 8 atorvaSTATin (LIPITOR) tablet 20 mg 20 mg Oral Nightly Aida Mills MD brimonidine (ALPHAGAN) 0.2% ophthalmic solution 1 drop 1 drop Both Eyes BID Aida hernandez MD 1 drop at 02/01/20 0844 budesonide (PULMICORT) nebulizer solution 0.5 mg 0.5 mg Nebulization RT BID Aida hernandez MD 0.5 mg at 02/01/20 0941 carvedilol (COREG) tablet 3.125 mg 3.125 mg Oral BID WC Aida Mills MD dorzolamide (TRUSOPT) 2% ophthalmic solution 1 drop 1 drop Both Eyes BID Aida Mills MD 1 drop at 02/01/20 0849 famotidine (PEPCID) injection 20 mg 20 mg Intravenous Daily Aida Mills MD 20 mg at 02/01/20 0839 furosemide (LASIX) injection 20 mg 20 mg Intravenous BID (8 and 16) Aida Mills MD 20 mg at 02/01/20 0846 heparin 5,000 units/mL injection 5,000 Units 5,000 Units Subcutaneous 2 times per day Aida Mills MD 5,000 Units at 02/01/20 0848 lactobacillus GG (CULTURELLE) capsule 1 capsule 1 capsule Oral BID Aida Mills MD 1 capsule at 02/01/20 0838 latanoprost (XALATAN) 0.005% ophthalmic solution 1 drop 1 drop Both Eyes Nightly Gagandeep Mills MD 1 drop at 01/31/20 2339 levoFLOXacin in dextrose (LEVAQUIN) IVPB 500 mg 500 mg Intravenous Daily Aida Mills MD 100 mL/hr at 02/01/20 0848 500 mg at 02/01/20 0848 ondansetron (ZOFRAN) injection 4 mg 4 mg Intravenous Q6H PRN Aida Mills MD vancomycin (FIRVANQ) 50 mg/mL liquid 125 mg 125 mg Oral 4 times per day Jazz Begum Current Infusions: Hematology and anemia Recent Labs Lab 02/01/20 0520 01/31/20 0907 WBC 13.3* 14.3* HGB 8.0* 9.4* HCT 27.0* 30.4* PLT 160 185 NEUPCT -- 86.4* Recent Labs Lab 01/31/20 0907 PROTIME 14.6* INR 1.1 No results for input(s): IRON, TIBC, PCTSAT, FERRITIN, TSH, [id number], FOLATE in the last 168 hours. Inflammatory markers Recent Labs Lab 01/31/20 0907 LACTATE 1.0 PROCALCITONI 0.23 CRP 99.10* Chemistry Recent Labs Lab 02/01/20 0634 01/31/20 0907 GLU 57* 97 NA 150* 144 K 3.1* 3.6 CL 113* 108* CO2 28 30 ANIONGAP 9 6 BUN 34* 39* CREA 0.93 1.06* GFRNONAA 57* 49* CALCIUM 7.9* 7.8* ALBUMIN -- 2.5* TOTALPROTEIN -- 5.1* BILITOT -- 0.6 ALKPHOS -- 132* ALT -- 12 AST -- 21 Recent Labs Lab 02/01/20 0634 01/31/20 0907 MG 1.8 1.9 Recent Labs Lab 01/31/20 0907 LIPASE 16 No results for input(s): TRIG, CHOL, HDL, LDL in the last 168 hours. No results for input(s): AMMONIA in the last 168 hours. Cardiology & Digoxin Recent Labs Lab 01/31/20 2107 01/31/20 1721 01/31/20 0907 TROPONIN 0.07* 0.07* 0.09* BNP -- -- 850* ABG No results for input(s): PHART, PO2ART, UGM0ANG, RRU8IUL, BEART, V5BIWYHO in the last 168 h ours. No results for input(s): SPECSOURCE, PHPOCB, PCO2, PO2, HCO3, TCO2, BEART, WVCH1VLU in the last 168 hours. Drug of overdose and abuse No results for input(s): ALCOHOL, ACTMN, SALICYLATE in the last 168 hours. No results for input(s): AMPHEQUAL, BARBITURATE, BENZSCR, CANNIBSCR, AMPHETAMINE, METHADSCR , OPIATESCR in the last 168 hours. Urinalysis Recent Labs Lab 01/31/20 1220 WBCUA 0-2 RBCUA 0-2 SQUAMEPIUA 0-2 BACTERIAUA Negative Point of care glucose No results for input(s): POCGLU in the last 168 hours. Micro results more choices using dot micro (below is last 7 days) Microbiology Results (Last 7) Date with Culture/Sensitivity) Procedure Component Value Units Date/Time Stool Pathogens, NAAT [[id number]] Collected: 02/01/20900 Order Status: Sent Lab Status: In process Updated: 02/01/20904 Specimen: Stool Clostridioides difficle NAAT reflex to Tox Ag [[id number]] Collected: 02/01/20900 Order Status: Completed Lab Status: Final result Updated: 02/01/20 1210 Specimen: Stool Narrative: The following orders were created for panel order Clostridioides difficle NAAT reflex to T ox Ag. Procedure Abnormality Status --------- ------ Clostridioides difficile...[[id number]] Final result Please view results for these tests on the individual orders. Clostridioides difficile NAAT Reflex [[id number]] Collected: 02/01/20 0901 Order Status: Completed Lab Status: Final result Updated: 02/01/20 1210 Specimen: Stool C. difficile, Interp Negative Comment: No Toxigenic C. difficile detected. Consider other causes of Diarrhea. Repeat te sting should not be performed within 7 days. C. difficile, NAAT Negative Culture, Blood [[id number]] Collected: 01/31/20 1721 Order Status: Completed Lab Status: Preliminary result Updated: 02/01/20 0531 Specimen: Blood from Line Culture No growth: Monitored continually by instrument for 5 days Influenza A and B RNA, NAAT [[id number]] (Normal) Collected: 01/31/20 1514 Order Status: Completed Lab Status: Final result Updated: 01/31/20 1557 Specimen: Tissue from Nasopharynx Influenza A PCR Negative Influenza B PCR Negative Respiratory pathogen panel, NAAT [[id number]] (Normal) Collected: 01/31/20 1513 Order Status: Completed Lab Status: Final result Updated: 01/31/20 1804 Specimen: Body Fluid from Nasopharynx Parainfluenza 1 Not Detected Adenovirus Not Detected Human Metapneumovirus Not Detected Rhinovirus/Enterovirus Not Detected Parainfluenza 3 Not Detected Coronavirus (COVID-19) NAAT [[id number]] (Normal) Collected: 01/31/20946 Order Status: Completed Lab Status: Final result Updated: 01/31/201941 Specimen: Tissue from Nasopharynx SARS coronavirus 2 NAAT Not Detected Comment: See Scanned Report [facility] STAT instructions for COVID-19 tracking [[id number]] Collected: 01/31/20946 Order Status: Completed Lab Status: Final result Updated: 01/31/201940 Specimen: Tissue from Nasopharynx [facility] COVID STAT instruction done Culture, Blood [[id number]] Collected: 01/31/20 09 Order Status: Completed Lab Status: Preliminary result Updated: 01/31/202120 Specimen: Peripheral Blood Culture No growth: Monitored continually by instrument for 5 days Radiology results (more choices using dot risresults) Ct Head Wo Contrast Result Date: 01/31/[address] 01/31/2020 10:22 AM CLINICAL HISTORY: Altered mental status COMPARI SON: CT November 03 and more remote imaging TECHNIQUE: Axial unenhanced images are performed through the head, along with coronal and sagittal reformations. FINDINGS: Mild to moderat e cerebral atrophy and commensurate ex vacuo ventricular dilation are again apparent. There is similar localized encephalomalacia in the left occipital lobe, consistent with chronic i nfarction. Tomlinson-white differentiation is maintained elsewhere. There is similar patchy hyp oattenuation of the periventricular cerebral white matter. Tiny hypodensities are again vis ible in the bilateral basal ganglia, favoring chronic lacunar infarcts. The brainstem and c erebellum are unremarkable. There is no mass effect, evidence of recent intracranial hemorr hector or extra-axial abnormality. The sella turcica is mostly empty, typically a normal vari ant. Heavily calcified plaque is again apparent in the terminal vertebral and internal carot id arteries. Bilateral prosthetic ocular lenses persist. Previously noted right parietal sc alp hematoma has resolved. There is a stable tiny, chronic calcified lesion in the right pa rietal scalp. A sessile sclerotic lesion arising from the inner table of the right frontal calvarium is stable, favoring an osteoma. Asymmetric degeneration of the right TMJ is again noted. Imaged paranasal sinuses are well aerated along with the middle ear cavities and mas toid air cells. 1. NO EVIDENCE OF ACUTE INTRACRANIAL DISEASE. 2. 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 Images were provided for in terpretation on January 31, 2020 at 1035 hours. Results were finalized at 1045 hours. Dictated and Signed by: Sivakumar Ramon MD Electronically signed: 01/31/2020 10:47 AM Xr Chest Ap Portable Result Date: 01/31/2020 XR CHEST AP PORTABLE 01/31/2020 9:15 AM HISTORY: SOB. COMPARISON: Multiple priors. Findings: Heart size is at the upper limits of normal. 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 There is atherosclerosis of the aorta. Central pulmonary vasculature is normal. Mild dif fuse scarring are present of the bilateral lungs. Degenerative changes are noted of the shou lders. There is moderate spondylosis. No acute findings. Dictated and Signed by: Patrick Rodriguez MD Electronically signed: 0 10:[address] Chest Abdomen Pelvis W Contrast Result Date: 01/31/[address] CHEST, ABDOMEN, AND PELVIS, 01/31/2020 10:22 AM CLINICAL HISTORY: ALOC and abdo rani pain COMPARISON: Chest radiography from the same day, chest CT December 01, CT abd omen and pelvis October 27 and more remote imaging TECHNIQUE: Axial images are performed th rough the chest, abdomen, and pelvis following the uneventful intravenous administration of 80 mL Omnipaque 350 contrast. Multiplanar reformations are also performed. CHEST FINDIN GS: There is calcified plaque in the aorta, proximal great vessels and coronary arteries. A n aortic valve prosthesis is again apparent. There is similar dilation of the ascending aor ta to a diameter of 3.9 cm. Dilation of the main pulmonary artery up to a diameter of 3.7 c m is unchanged. No pathologic lymph node enlargement is evident. There is no pericardial e ffusion or pneumothorax. Minimal dependent right pleural fluid persists and is similar in v olume. Previously described clustered nodularity involving portions of both lungs has signi ficantly improved from imaging of December 01. Few new small regions of ground glass nodula rity are apparent in the right apex, posterior left upper lobe and posterior superior left l ower lobe. Previously described mucous plugging in the right middle and lower lobes has mos tly resolved. No new airway abnormality is evident. There is generalized osteopenia. Darya re degeneration of the glenohumeral joints is apparent. There is S-shaped thoracolumbar cur vature and extensive vertebral spondylosis. Healed bilateral rib fractures are present. ABD OMEN FINDINGS: The gallbladder is surgically absent and there is similar marked, generalize d biliary ductal dilation, with the common bile duct again measuring up to 2.8 cm in diamete r. Prominence of the main pancreatic duct is again demonstrated along with generalized panc reatic atrophy. There is a stable 1.2 cm rounded region of presumed enhancement in the far inferior, posterior right hepatic lobe, favoring a transient perfusion anomaly or other barrington gn lesion. The spleen and adrenal glands are unremarkable. Numerous tiny rounded hypodensi ties persist in the kidneys, favoring cysts. No nephroureterolithiasis or hydroureteronephr osis is evident. Previously described wall thickening and adjacent mesenteric stranding in the rectosigmoid region are less pronounced presently. Left colonic diverticulosis is prese nt. There is no evidence of bowel obstruction or significant stool retention. Fluid is pre sent within mildly prominent small bowel segments throughout the left abdomen and nondilated small bowel elsewhere in the abdomen without evident bowel wall thickening or mesenteric ab normality. The appendix is not identified. The stomach is unremarkable. No free air, asci annetta, pathologic lymph node enlargement or hernia is evident. There is extensive aortoiliac calcification with similar ectasia of the infrarenal aorta to a diameter of 3 cm. There is calcification involving visceral aortic branch origins. Abdominal vasculature is otherwise unremarkable. Extensive multilevel degenerative changes are again apparent in the lumbar sp ine, with osseous posterior fusion present at L4-5 and L5-S1, where there is chronic anterol isthesis. PELVIS FINDINGS: The uterus is absent. Bladder and adnexal regions are unremarka ble. No free air, free fluid, pathologic lymph node enlargement, or hernia is evident. A h ealing appearing fracture of the right inferior pubic ramus is now apparent. No acute fract ure is visible. Bones and soft tissues are otherwise unremarkable. 1. NEW BUT HEALING APPEARING FRACTURE OF THE RIGHT INFERIOR PUBIC RAMUS COMPARED WITH IMAG ING OF OCTOBER 27. NO ACUTE FRACTURE IS IDENTIFIED. 2. CHRONIC SMALL DEPENDENT RIGHT PLEUR AL EFFUSION WITH OVERALL IMPROVED CLUSTERED NODULARITY AND MUCOUS PLUGGING IN THE LUNGS, FAV ORING AIRWAY CENTERED INFECTION OR INFLAMMATION. 3. CHRONIC, MARKED BILIARY DUCTAL DILATION AND PROMINENCE OF THE PANCREATIC DUCT. CONSIDER FOLLOW-UP NON-EMERGENT MRCP IF FURTHER GEMINI RACTERIZATION IS DESIRED. 4. MILDLY PROMINENT, FLUID-FILLED SMALL BOWEL IN THE LEFT ABDOMEN WITHOUT EVIDENCE OF OBSTRUCTION. 5. IMPROVED WALL THICKENING AND MESENTERIC STRANDING IN T HE RECTOSIGMOID REGION. 6. EXTENSIVE VASCULAR CALCIFICATION WITH CHRONIC ENLARGEMENT OF THE MAIN PULMONARY ARTERY, SUGGESTING PULMONARY ARTERIAL HYPERTENSION. Images were provided for interpretation on January 31, 2020 at 1035 hours. Results were finalized at 1110 hours. Dicta yoel and Signed by: Sivakumar Ramon MD Electronically signed: 01/31/2020 11:10 AM Reference. This is NOT part of the patient's formal assessment section. In the assessment or plan section of notes the author may date some of the subsections with a number such as "" or "" to indicate the date of that entry or event. In the example below the 1st line is the original entry and the subsequent lines indicate flowing updates to the subsection: Example assessment subsection (such as CHF or CP or Pneumonia) Patient is improved today with resolution of symptoms 24th Worse with recurrence of symptoms requiring further testing Portions of this chart may have been created with [employer] voice recognition software. Occasi onal wrong-word or sound-alike substitutions may have occurred due to the inherent owen itations of voice recognition software. Please read the chart carefully and recognize, using context, where these substitutions have occurred Edwin Mesa PharmD - 01/31/2020 8:11 PM PDTPharmacy Services Probiotic protocol initiated for qualifying patients if the patient has been on antibiotics for <72 hours and after inclusion/exclusion criteria assessed. If the patient has been on a ntibiotics for >72 hours probiotics will not be initiated, despite meeting inclusion/exclusi on criteria. Inclusion criteria: Patient is Age 1818 years old or older Yes [x] No [] Exclusion criteria: Yes [] No [x] Surgical antibiotic prophylaxis Yes [] No [x] On Vancomycin IV monotherapy Yes [] No [x] Active antibiotics exclusively for CDI treatment Yes [] No [x] Acute pancreatitis Yes [] No [x] Immunocompromised Yes [] No [x] (Neutropenia with ANC <1000, HIV with CD4 count <200,C hemotherapy or radiation, Solid organ transplant, Active hematologic malignancy) Plan: 1. Initiate probiotics per protocol; smartphrase ".rxprobiotics" added to admin instruction s on probiotic order; YES 2. AVS updated with ".rxprobioticdischarge"; YES 3. Enter stop time for 5 days after antibiotics if/when end time established Edwin Ramos PharmD 01/31/2020 8:12 PM documented in this encounter Plan of Treatment +--------+ + + + + | Date | Type | Specialty | Care Team | Description | +--------+ + + + + | 03/23/ | Office | Anticoagulation | García Harris, | | | 2019 | Visit | | [facility] [facility] [address] | | | | | | [place] | | | | | | [address] | | | | | | | | +--------+ + + + + | 04/11/ | Appointment | Radiology | Shawn Michael | | | 2019 | | | MD [address] | | | | | | [address] [place] | | | | | | [place] [id number] | | | | | | [phone] | | | | | | | | +--------+ + + + + | 04/13/ | Office | Cardiology | Shawn Michael | | | 2019 | Visit | | MD [address] | | | | | | [address] [place] | | | | | | [place], [place] [address] | | | | | | [phone] | | | | | | | | +--------+ + + + + + +------+--------+ + + | Name | Type | Priori | Associated Diagnoses | Date/Time | | | | ty | | | + +------+--------+ + + | ED INFORMATION | MICHAEL | Routin | | 01/31/2020 8:15 AM | | EXCHANGE | | e | | PDT | + +------+--------+ + + + +------+--------+ + + | Name | Type | Priori | Associated Diagnoses | Order Schedule | | | | ty | | | + +------+--------+ + + | DME: Wheelchair | DME | Routin | Muscular | DME 1 Time for 1 | | | | e | deconditioning | Occurrences starting | | | | | | 02/08/2020 until | | | | | | 02/08/2020 | + +------+--------+ + + | DME: Misc Bed wedges | DME | Routin | Acute respiratory | DME 1 Time for 1 | | x2 | | e | failure with hypoxia | Occurrences starting | | | | | (HCC) | 02/08/2020 until | | | | | | 02/08/2020 | + +------+--------+ + + + + +--------+ + + | Name | Type | Priori | Associated Diagnoses | Order Schedule | | | | ty | | | + + +--------+ + + | Referral to Home | Outpatient | Routin | Acute respiratory | Ordered: 02/08/2020 | | Health - OUTPATIENT | Referral | e | failure with hypoxia | | | | | | ([facility]) Pressure | | | | | | injury of deep | | | | | | tissue of sacral | | | | | | region Acute | | | | | | metabolic | | | | | | encephalopathy | | | | | | 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 ([facility]) | | | | | | Chronic obstructive | | | | | | pulmonary disease, | | | | | | unspecified COPD | | | | | | type ([facility]) Moderate | | | | | | protein-calorie | | | | | | malnutrition ([facility]) | | | | | | Impaired mobility | | + + +--------+ + + | AMB REFERRAL TO [facility] | Outpatient | Routin | Dysphagia, | Ordered: 02/09/2020 | | [facility] | Referral | e | unspecified type | | + + +--------+ + + documented as of this encounter Procedures + +--------+ + + + | Procedure Name | Priori | Date/Time | Associated Diagnosis | Comments | | | ty | | | | + +--------+ + + + | PRODUCT: RBC | Routin | 02/10/2020 | | Results for this | | | e | 1:46 PM | | procedure are in the | | | | PDT | | results section. | + +--------+ + + + | CBC WITH | Routin | 02/08/2020 | | Results for this | | DIFFERENTIAL | e | 6:09 AM | | procedure are in the | | | | PDT | | results section. | + +--------+ + + + | MAGNESIUM | Routin | 02/08/2020 | | Results for this | | | e | 6:09 AM | | procedure are in the | | | | PDT | | results section. | + +--------+ + + + | BASIC METABOLIC | Routin | 02/08/2020 | | Results for this | | PANEL | e | 6:09 AM | | procedure are in the | | | | PDT | | results section. | + +--------+ + + + | TRANSFUSE 1 UNIT RED | Routin | 02/07/2020 | | | | BLOOD CELLS | e | 8:41 PM | | | | | | PDT | | | + +--------+ + + + | VAS UPPER EXTREMITY | Routin | 02/07/2020 | | Results for this | | VENOUS LEFT | e | 6:08 PM | | procedure are in the | | | | PDT | | results section. | + +--------+ + + + | TYPE AND SCREEN | Routin | 02/07/2020 | | Results for this | | | e | 3:10 PM | | procedure are in the | | | | PDT | | results section. | + +--------+ + + + | CBC WITH | Routin | 02/07/2020 | | Results for this | | DIFFERENTIAL | e | 12:45 PM | | procedure are in the | | | | PDT | | results section. | + +--------+ + + + | CBC WITH | Routin | 02/07/2020 | | Results for this | | DIFFERENTIAL | e | 5:45 AM | | procedure are in the | | | | PDT | | results section. | + +--------+ + + + | MAGNESIUM | Routin | 02/07/2020 | | Results for this | | | e | 5:45 AM | | procedure are in the | | | | PDT | | results section. | + +--------+ + + + | BASIC METABOLIC | Routin | 02/07/2020 | | Results for this | | PANEL | e | 5:45 AM | | procedure are in the | | | | PDT | | results section. | + +--------+ + + + | SODIUM | Routin | 02/06/2020 | | Results for this | | | e | 11:56 AM | | procedure are in the | | | | PDT | | results section. | + +--------+ + + + | VANCOMYCIN, TROUGH | Timed | 02/06/2020 | | Results for this | | | | 11:56 AM | | procedure are in the | | | | PDT | | results section. | + +--------+ + + + | CBC WITH | Routin | 02/06/2020 | | Results for this | | DIFFERENTIAL | e | 5:10 AM | | procedure are in the | | | | PDT | | results section. | + +--------+ + + + | MAGNESIUM | Routin | 02/06/2020 | | Results for this | | | e | 5:10 AM | | procedure are in the | | | | PDT | | results section. | + +--------+ + + + | BASIC METABOLIC | Routin | 02/06/2020 | | Results for this | | PANEL | e | 5:10 AM | | procedure are in the | | | | PDT | | results section. | + +--------+ + + + | XR CHEST AP PORTABLE | Routin | 02/05/2020 | | Results for this | | | e | 12:03 PM | | procedure are in the | | | | PDT | | results section. | + +--------+ + + + | HEMOGLOBIN AND | Routin | 02/05/2020 | | Results for this | | HEMATOCRIT | e | 10:24 AM | | procedure are in the | | | | PDT | | results section. | + +--------+ + + + | SODIUM | Routin | 02/05/2020 | | Results for this | | | e | 10:24 AM | | procedure are in the | | | | PDT | | results section. | + +--------+ + + + | FOLATE | Routin | 02/05/2020 | | Results for this | | | e | 10:24 AM | | procedure are in the | | | | PDT | | results section. | + +--------+ + + + | VITAMIN B-12 | Add-On | 02/05/2020 | | Results for this | | | | 6:28 AM | | procedure are in the | | | | PDT | | results section. | + +--------+ + + + | IRON AND TRANSFERRIN | Add-On | 02/05/2020 | | Results for this | | | | 6:28 AM | | procedure are in the | | | | PDT | | results section. | + +--------+ + + + | CBC WITH | Routin | 02/05/2020 | | Results for this | | DIFFERENTIAL | e | 6:28 AM | | procedure are in the | | | | PDT | | results section. | + +--------+ + + + | MAGNESIUM | Routin | 02/05/2020 | | Results for this | | | e | 6:28 AM | | procedure are in the | | | | PDT | | results section. | + +--------+ + + + | FERRITIN | Add-On | 02/05/2020 | | Results for this | | | | 6:28 AM | | procedure are in the | | | | PDT | | results section. | + +--------+ + + + | BASIC METABOLIC | Routin | 02/05/2020 | | Results for this | | PANEL | e | 6:28 AM | | procedure are in the | | | | PDT | | results section. | + +--------+ + + + | SODIUM | Routin | 02/04/2020 | | Results for this | | | e | 12:03 PM | | procedure are in the | | | | PDT | | results section. | + +--------+ + + + | CBC WITH | Routin | 02/04/2020 | | Results for this | | DIFFERENTIAL | e | 6:29 AM | | procedure are in the | | | | PDT | | results section. | + +--------+ + + + | MAGNESIUM | Routin | 02/04/2020 | | Results for this | | | e | 6:29 AM | | procedure are in the | | | | PDT | | results section. | + +--------+ + + + | BASIC METABOLIC | Routin | 02/04/2020 | | Results for this | | PANEL | e | 6:29 AM | | procedure are in the | | | | PDT | | results section. | + +--------+ + + + | CULTURE, WOUND, | Routin | 02/03/2020 | | Results for this | | SMEAR | e | 11:13 AM | | procedure are in the | | | | PDT | | results section. | + +--------+ + + + | CULTURE, WOUND, | Routin | 02/03/2020 | | Results for this | | SMEAR | e | 11:13 AM | | procedure are in the | | | | PDT | | results section. | + +--------+ + + + | CULTURE, ANAEROBIC | Routin | 02/03/2020 | | Results for this | | | e | 11:13 AM | | procedure are in the | | | | PDT | | results section. | + +--------+ + + + | FL ESOPHAGRAM | Routin | 02/03/2020 | | Results for this | | COMPLETE | e | 9:24 AM | | procedure are in the | | | | PDT | | results section. | + +--------+ + + + | CBC WITH | Routin | 02/03/2020 | | Results for this | | DIFFERENTIAL | e | 6:18 AM | | procedure are in the | | | | PDT | | results section. | + +--------+ + + + | MAGNESIUM | Routin | 02/03/2020 | | Results for this | | | e | 6:18 AM | | procedure are in the | | | | PDT | | results section. | + +--------+ + + + | BASIC METABOLIC | Routin | 02/03/2020 | | Results for this | | PANEL | e | 6:18 AM | | procedure are in the | | | | PDT | | results section. | + +--------+ + + + | SODIUM | Routin | 02/02/2020 | | Results for this | | | e | 12:22 PM | | procedure are in the | | | | PDT | | results section. | + +--------+ + + + | FL VIDEO SWALLOW W | Routin | 02/02/2020 | | Results for this | | SPEECH | e | 12:07 PM | | procedure are in the | | | | PDT | | results section. | + +--------+ + + + | CBC WITH | Routin | 02/02/2020 | | Results for this | | DIFFERENTIAL | e | 6:40 AM | | procedure are in the | | | | PDT | | results section. | + +--------+ + + + | B TYPE NATRIURETIC | Add-On | 02/02/2020 | | Results for this | | PEPTIDE | | 6:40 AM | | procedure are in the | | | | PDT | | results section. | + +--------+ + + + | MAGNESIUM | Routin | 02/02/2020 | | Results for this | | | e | 6:40 AM | | procedure are in the | | | | PDT | | results section. | + +--------+ + + + | BASIC METABOLIC | Routin | 02/02/2020 | | Results for this | | PANEL | e | 6:40 AM | | procedure are in the | | | | PDT | | results section. | + +--------+ + + + | URINALYSIS, REFLEX | Routin | 02/02/2020 | | Results for this | | MICROSCOPIC AND/OR | e | 3:44 AM | | procedure are in the | | CULTURE | | PDT | | results section. | + +--------+ + + + | CULTURE, URINE | Routin | 02/02/2020 | | Results for this | | | e | 3:44 AM | | procedure are in the | | | | PDT | | results section. | + +--------+ + + + | CLOSTRIDIOIDES | Routin | 02/01/2020 | | Results for this | | DIFFICILE NAAT | e | 9:01 AM | | procedure are in the | | REFLEX | | PDT | | results section. | + +--------+ + + + | STOOL PATHOGENS, | Routin | 02/01/2020 | | Results for this | | NAAT, 6 TO 11 | e | 9:01 AM | | procedure are in the | | TARGETS | | PDT | | results section. | + +--------+ + + + | CLOSTRIDIOIDES | Routin | 02/01/2020 | | Results for this | | DIFFICILE NAAT | e | 9:01 AM | | procedure are in the | | REFLEX TO TOX AG | | PDT | | results section. | + +--------+ + + + | MAGNESIUM | Routin | 02/01/2020 | | Results for this | | | e | 6:34 AM | | procedure are in the | | | | PDT | | results section. | + +--------+ + + + | BASIC METABOLIC | Routin | 02/01/2020 | | Results for this | | PANEL | e | 6:34 AM | | procedure are in the | | | | PDT | | results section. | + +--------+ + + + | CBC NO DIFFERENTIAL | Routin | 02/01/2020 | | Results for this | | | e | 5:20 AM | | procedure are in the | | | | PDT | | results section. | + +--------+ + + + | TROPONIN I | Routin | 01/31/2020 | | Results for this | | | e | 9:07 PM | | procedure are in the | | | | PDT | | results section. | + +--------+ + + + | TROPONIN I | Routin | 01/31/2020 | | Results for this | | | e | 5:21 PM | | procedure are in the | | | | PDT | | results section. | + +--------+ + + + | CULTURE, BLOOD | STAT | 01/31/2020 | | Results for this | | | | 5:21 PM | | procedure are in the | | | | PDT | | results section. | + +--------+ + + + | INFLUENZA A AND B | Routin | 01/31/2020 | | Results for this | | RNA, NAAT | e | 3:14 PM | | procedure are in the | | | | PDT | | results section. | + +--------+ + + + | RESPIRATORY VIRUS | Routin | 01/31/2020 | | Results for this | | ANTIGENS PROFILE | e | 3:13 PM | | procedure are in the | | | | PDT | | results section. | + +--------+ + + + | URINALYSIS, | STAT | 01/31/2020 | | Results for this | | MICROSCOPIC ONLY | | 12:20 PM | | procedure are in the | | | | PDT | | results section. | + +--------+ + + + | CT CHEST ABDOMEN | STAT | 01/31/2020 | | Results for this | | PELVIS W CONTRAST | | 10:24 AM | | procedure are in the | | | | PDT | | results section. | + +--------+ + + + | CT HEAD WO CONTRAST | STAT | 01/31/2020 | | Results for this | | | | 10:24 AM | | procedure are in the | | | | PDT | | results section. | + +--------+ + + + | COVID-19 STAT | STAT | 01/31/2020 | | Results for this | | INSTRUCTION TO | | 9:47 AM | | procedure are in the | | [facility] ONLY | | PDT | | results section. | + +--------+ + + + | CORONAVIRUS | Routin | 01/31/2020 | | Results for this | | (COVID-19) NAAT | e | 9:47 AM | | procedure are in the | | | | PDT | | results section. | + +--------+ + + + | ECG 12 LEAD | STAT | 01/31/2020 | | Results for this | | | | 9:28 AM | | procedure are in the | | | | PDT | | results section. | + +--------+ + + + | XR CHEST AP PORTABLE | STAT | 01/31/2020 | | Results for this | | | | 9:16 AM | | procedure are in the | | | | PDT | | results section. | + +--------+ + + + | PROCALCITONIN, SERUM | STAT | 01/31/2020 | | Results for this | | | | 9:07 AM | | procedure are in the | | | | PDT | | results section. | + +--------+ + + + | TROPONIN I | STAT | 01/31/2020 | | Results for this | | | | 9:07 AM | | procedure are in the | | | | PDT | | results section. | + +--------+ + + + | CULTURE, BLOOD | STAT | 01/31/2020 | | Results for this | | | | 9:07 AM | | procedure are in the | | | | PDT | | results section. | + +--------+ + + + | PROTIME INR | STAT | 01/31/2020 | | Results for this | | | | 9:07 AM | | procedure are in the | | | | PDT | | results section. | + +--------+ + + + | CBC WITH | STAT | 01/31/2020 | | Results for this | | DIFFERENTIAL | | 9:07 AM | | procedure are in the | | | | PDT | | results section. | + +--------+ + + + | C-REACTIVE PROTEIN | Routin | 01/31/2020 | | Results for this | | | e | 9:07 AM | | procedure are in the | | | | PDT | | results section. | + +--------+ + + + | B TYPE NATRIURETIC | STAT | 01/31/2020 | | Results for this | | PEPTIDE | | 9:07 AM | | procedure are in the | | | | PDT | | results section. | + +--------+ + + + | MAGNESIUM | Add-On | 01/31/2020 | | Results for this | | | | 9:07 AM | | procedure are in the | | | | PDT | | results section. | + +--------+ + + + | LIPASE | STAT | 01/31/2020 | | Results for this | | | | 9:07 AM | | procedure are in the | | | | PDT | | results section. | + +--------+ + + + | LACTIC ACID | STAT | 01/31/2020 | | Results for this | | | | 9:07 AM | | procedure are in the | | | | PDT | | results section. | + +--------+ + + + | COMPREHENSIVE | STAT | 01/31/2020 | | Results for this | | METABOLIC PANEL | | 9:07 AM | | procedure are in the | | | | PDT | | results section. | + +--------+ + + + | ED INFORMATION | Routin | 01/31/2020 | | | | EXCHANGE | e | 8:15 AM | | | | | | PDT | | | + +--------+ + + + +---+--------+ | | | | | Proced | | | ure | | | Note - | | | Kobe, | | | Lab In | | | | | | Hlseve | | | n - | | | | | | 2019 | | | 8:16 | | | AM PDT | | | | | | Format | | | ting | | | of | | | this | | | note | | | might | | | be | | | differ | | | ent | | | from | | | the | | | origin | | | al.COL | | | LECTIV | | | E?NOTI | | | FICATI | | | ON?04/ | | | 27/202 | | | 0 | | | 08:14? | | | CARLINE | | | , | | | ÁNGELA | | | J?MRN: | | | | | | [id number] | | | [id number] | | | riteri | | | a Met | | | Care | | | Guidel | | | ash | | | 4 | | | visits | | | in | | | 60Secu | | | rity | | | and | | | Safety | | | No | | | recent | | | | | | Securi | | | ty | | | Events | | | | | | curren | | | tly on | | | | | | fileED | | | Care | | | Guidel | | | ash | | | from | | | [facility] | | | rk | | | Health | | | - | | | Seattl | | | eLast | | | Update | | | d: | | | 7/15/1 | | | 9 | | | 12:18 | | | PM | | | This | | | patien | | | t | | | qualif | | | ies | | | for | | | [facility] | | | rk | | | Health | | | , a | | | mobile | | | | | | in-mayela | | | e | | | provid | | | er | | | group | | | chidi | | | g | | | patien | | | ts who | | | have | | | comple | | | x | | | chroni | | | c | | | illnes | | | ses. | | | [facility] | | | rk | | | Health | | | | | | physic | | | ians | | | and | | | advanc | | | ed | | | practi | | | ce | | | provid | | | ers | | | are | | | availa | | | ble | | | 24/7 | | | for | | | house | | | calls, | | | | | | includ | | | ing | | | post-d | | | ischar | | | ge | | | visits | | | . | | | Please | | | | | | contac | | | t the | | | [facility] | | | rk on | | | call | | | provid | | | er and | | | care | | | manage | | | r 24/7 | | | at | | | [phone] | | | [phone] | | | 61 to | | | facili | | | cortés a | | | | | | smooth | | | | | | transi | | | tion | | | to | | | home.E | | | D Care | | | | | | Guidel | | | ash | | | from | | | Good | | | [facility] | | | [facility]ott | | | Hospit | | | alLast | | | | | | Update | | | d: | | | 11/25/ | | | 18 | | | 11:58 | | | AM | | | Care | | | Recomm | | | endati | | | on:Melony | | | son | | | for | | | referr | | | al:? | | | This | | | patien | | | t has | | | been | | | identi | | | fied | | | as | | | having | | | >5 ED | | | | | | visits | | | | | | within | | | the | | | past | | | year | | | at ED[place] | | | [place] | [place] | | | Plan: | | | ? | | | Provid | | | e | | | educat | | | ion | | | regard | | | ing | | | the | | | approp | | | riate | | | use of | | | | | | emerge | | | ncy | | | servic | | | es. | | | Encour | | | age | | | follow | | | up | | | with | | | primar | | | y care | | | | | | provid | | | ers. | | | Provid | | | e | | | commun | | | ity | | | resour | | | rebecca | | | regard | | | ing | | | locati | | | ng a | | | primar | | | y care | | | | | | provid | | | er if | | | the | | | patien | | | t does | | | not | | | have | | | an | | | identi | | | fied | | | primar | | | y care | | | | | | provid | | | er; | | | Encour | | | age | | | review | | | of | | | the | | | patien | | | t's | | | [place] | | | [place] | | | Prescr | | | iption | | | | | | Monito | | | ring | | | Progra | | | m WPMP | | | if | | | there | | | are | | | concer | | | ns | | | about | | | potent | | | ial | | | medica | | | tion | | | seekin | | | g | | | behavi | | | ors.Ju | | | tess | | | Caro, | | | | | | LMHCMu | | | ltiCar | | | e | | | Person | | | al | | | Health | | | | | | Partne | | | r, GSH | | | | | | [id number]. | | | [phone] | | | 60Thes | | | e are | | | guidel | | | ash | | | and | | | the | | | provid | | | er | | | should | | | | | | exerci | | | se | | | clinic | | | al | | | judgme | | | nt | | | when | | | provid | | | ing | | | care.C | | | are | | | Histor | | | yMedic | | | al/Radha | | | [id number] | | | /24/19 | | | 12:00 | | | AM | | | [facility] | | [facility] | | | al?? | | | PATIEN | | | T IS A | | | | | | YELLOW | | | [facility] | | | MEMBER | | | .?? | | | PLEASE | | | REFER | | | | | | PATIEN | | | T TO | | | [facility] | | | [facility] | [facility] | | | FOR | | | NON | | | EMERGE | | | NT | | | MEDICA | | | L | | | NEEDS. | | | ?? | | | YELLOW | | | [facility] | | | [facility] | | | CAN | | | SEE | | | PATIEN | | | TS | | | SAME | | | DAY | | | FOR | | | APTS | | | IF | | | PATIEN | | | T | | | CALLS | | | FIRST | | | THING | | | IN THE | | | | | | MORNIN | | | G.Flag | | | s | | | [place] | | | ED | | | Dispar | | | ity | | | Measur | | | e - | | | [place] | | | has | | | develo | | | ped a | | | flag | | | (Orego | | | n ED | | | Dispar | | | ity | | | Measur | | | e) to | | | help | | | suppor | | | t | | | Medica | | | id | | | member | | | s with | | | | | | mental | | | | | | illnes | | | s. | | | [place] | | | | | | Health | | | | | | Author | | | ity | | | uses | | | claims | | | data | | | with a | | | | | | 36-mon | | | th | | | michaelle | | | g look | | | back | | | period | | | to | | | identi | | | fy | | | member | | | s who | | | have | | | had | | | two or | | | more | | | diagno | | | ses of | | | | | | mental | | | | | | illnes | | | s | | | (does | | | not | | | need | | | to be | | | primar | | | y) in | | | any | | | settin | | | g | | | (e.g. | | | ED, | | | Inpati | | | ent, | | | primar | | | y | | | care). | | | | | | Flagge | | | d | | | member | | | s are | | | includ | | | ed in | | | the ED | | | | | | Dispar | | | ity | | | Measur | | | e | | | denomi | | | nator | | | popula | | | tion. | | | Flags | | | are | | | update | | | d | | | weekly | | | . / | | | Attrib | | | uted | | | By: | | | [place] | | | | | | Health | | | | | | Author | | | ity | | | (OHA) | | | / | | | Attrib | | | uted | | | On: | | | 03/04/ | | | 2020 | | | Prescr | | | iption | | | Drug | | | Report | | | (12 | | | Mo.)Rx | | | | | | Detail | | | sFill | | | Date | | | Drug | | | Descri | | | ption | | | Qty. | | | Prescr | | | iber | | | CS MED | | | | | | 2020-0 | | | 2-07 | | | HYDROC | | | ODONE- | | | ACETAM | | | IN | | | 5-325 | | | MG 12 | | | ANNABELLE | | | JADE | | | 2 30 | | | Rx | | | [place] | | | yMetri | | | c | | | Count | | | CS | | | II-V | | | Rx 1 | | | CS-II | | | Rx 1 | | | Quanti | | | ty | | | Dispen | | | sed 12 | | | | | | Unique | | | | | | Prescr | | | ibers | | | 1 | | | Unique | | | | | | Pharma | | | cies 1 | | | | | | Benzos | | | 0 | | | Opioid | | | s 1 | | | Long | | | Acting | | | | | | Opioid | | | s 0 | | | E.D. | | | Visit | | | Count | | | (12 | | | mo.)Fa | | | cility | | | | | | Visits | | | Low | | | [facility] | | | St[facility] | | | [facility] | | | s | | | Hospit | | | al 4 0 | | | Good | | | [facility] | | | scott | | | Hospit | | | al 3 0 | | | | | | Provid | | | ence | | | St. | | | [facility] | | | Med[facility] | | | l | | | Center | | | 16 0 | | | [place] | | | | | | [facility] | | | l | | | Hospit | | | al 1 0 | | | [facility] y | | | Hospit | | | al 3 0 | | | Total | | | 27 0 | | | Note: | | | Visits | | | | | | indica | | | te | | | total | | | known | | | visits | | | . | | | Medica | | | id Low | | | | | | Acuity | | | Dx | | | are | | | the | | | number | | | of | | | primar | | | y | | | diagno | | | ses on | | | the | | | Medica | | | id's | | | Low | | | Acuity | | | dx | | | list. | | | | | | Recent | | | | | | Emerge | | | ncy | | | Depart | | | ment | | | Visit | | | [facility] | | | yShowi | | | ng 10 | | | most | | | recent | | | | | | visits | | | out | | | of 29 | | | in the | | | past | | | 12 | | | months | | | Date | | | Facili | | | ty | | | City | | | State | | | Type | | | Diagno | | | ses or | | | Chief | | | | | | Compla | | | int | | | Apr | | | 27, | | | 2020 | | | Provid | | | ence | | | [facility] | [facility] | [place] | | | [place] | | | Emerge | | | ncy | | | Mar | | | 22, | | | 2020 | | | [facility] | [facility] [place] | [place] | | | Emerge | | | ncy | | | | | | Chroni | | | c | | | obstru | | | ctive | | | pulmon | | | madison | | | diseas | | | e, | | | unspec | | | ified | | | Low | | | back | | | pain | | | | | | Anemia | | | , | | | unspec | | | ified | | | | | | Fall | | | on | | | same | | | level, | | | | | | unspec | | | ified, | | | | | | initia | | | l | | | encoun | | | ter | | | | | | Allerg | | | y | | | status | | | to | | | sulfon | | | amides | | | | | | status | | | | | | Heart | | | failur | | | e, | | | unspec | | | ified | | | | | | Other | | | long | | | term | | | (curre | | | nt) | | | drug | | | therap | | | y | | | Lacera | | | tion | | | withou | | | t | | | foreig | | | n | | | body, | | | right | | | lower | | | leg, | | | initia | | | l enc | | | Mar | | | 15, | | | 2020 | | | [facility] | [facility] [place] | | | Emerge | | | ncy | | | | | | Allerg | | | y | | | status | | | to | | | sulfon | | | amides | | | | | | status | | | | | | Other | | | long | | | term | | | (curre | | | nt) | | | drug | | | therap | | | y | | | Cough | | | | | | Allerg | | | y | | | status | | | to | | | narcot | | | ic | | | agent | | | status | | | | | | Heart | | | failur | | | e, | | | unspec | | | ified | | | | | | Anemia | | | , | | | unspec | | | ified | | | | | | Chroni | | | c | | | obstru | | | ctive | | | pulmon | | | madison | | | diseas | | | e, | | | unspec | | | ified | | | Mar | | | 8, | | | 2020 | | | Provid | | | ence | | | [facility] | [facility] | [place] | | | [place] | | | Emerge | | | ncy | | | | | | Fever; | | | Cough | | | | | | Shortn | | | ess of | | | | | | Breath | | | | | | Cough | | | | | | Pneumo | | | tricia, | | | unspec | | | ified | | | organi | | | sm | | | Feb | | | 26, | | | 2020 | | | Provid | | | ence | | | [facility] | | [facility] | [place] | | | [place] | | | Emerge | | | ncy | | | | | | Shortn | | | ess of | | | | | | Breath | | | | | | Anemia | | | , | | | unspec | | | ified | | | | | | Chroni | | | c | | | obstru | | | ctive | | | pulmon | | | madison | | | diseas | | | e with | | | | | | (acute | | | ) | | | exacer | | | bati | | | | | | Pneumo | | | tricia, | | | unspec | | | ified | | | organi | | | sm | | | Feb | | | 25, | | | 2020 | | | Provid | | | ence | | | [facility] | [facility] | [place] | | | [place] | | | Emerge | | | ncy | | | low | | | bp | | | Proced | | | ure | | | and | | | treatm | | | ent | | | not | | | ana | | | d out | | | due to | | | | | | patien | | | t | | | leavin | | | Feb | | | 13, | | | 2020 | | | Provid | | | ence | | | [facility] | | [facility] | [place] | | | [place] | | | Emerge | | | ncy | | | | | | Shortn | | | ess of | | | | | | Breath | | | | | | Chroni | | | c | | | obstru | | | ctive | | | pulmon | | | madison | | | diseas | | | e with | | | | | | (acute | | | ) | | | exacer | | | bati | | | | | | Influe | | | nza | | | due to | | | other | | | | | | identi | | | fied | | | influe | | | nza | | | virus | | | with | | | other | | | | | | Chest | | | pain, | | | unspec | | | ified | | | | | | Athero | | | sclero | | | tic | | | heart | | | diseas | | | e of | | | red cliff | | | | | | palencia | | | ry | | | artery | | | witho | | | Joe | | | 29, | | | 2020 | | | Provid | | | ence | | | [facility] | [facility] | [place] | | | [place] | | | Emerge | | | ncy | | | Fall | | | | | | Unspec | | | ified | | | injury | | | of | | | head, | | | initia | | | l | | | encoun | | | ter | | | | | | Unspec | | | ified | | | fall, | | | initia | | | l | | | encoun | | | ter | | | | | | Contus | | | ion of | | | right | | | upper | | | arm, | | | initia | | | l | | | encoun | | | ter | | | Oje | | | 22, | | | 2020 | | | Provid | | | ence | | | [facility] | [facility] | [place] | | | [place] | | | Emerge | | | ncy | | | poss | | | dehydr | | | ated | | | | | | Emesis | | | | | | Dysuri | | | a | | | Divert | | | iculit | | | is of | | | large | | | intest | | | ine | | | with | | | perfor | | | ation | | | and | | | absces | | | Dec | | | 5, | | | 2019 | | | Provid | | | ence | | | [facility] | [facility] | [place] | | | [place] | | | Emerge | | | ncy | | | Head | | | Lac | | | Fall | | | | | | Lacera | | | tion | | | withou | | | t | | | foreig | | | n | | | body, | | | left | | | lower | | | leg, | | | initia | | | l enco | | | | | | Contus | | | ion of | | | | | | scalp, | | | | | | initia | | | l | | | encoun | | | ter | | | Recent | | | | | | Inpati | | | ent | | | Visit | | | [facility] | | | yDate | | | Facili | | | ty | | | City | | | State | | | Type | | | Diagno | | | ses or | | | Chief | | | | | | Compla | | | int | | | Feb | | | 26, | | | 2020 | | | Provid | | | ence | | | [facility] | [facility] | [place] | | | [place] | | | Surgic | | | al | | | Servic | | | es | | | Chroni | | | c | | | obstru | | | ctive | | | pulmon | | | madison | | | diseas | | | e with | | | | | | (acute | | | ) | | | exacer | | | bati | | | | | | Pneumo | | | tricia, | | | unspec | | | ified | | | organi | | | sm | | | Anemia | | | , | | | unspec | | | ified | | | | | | Other | | | reduce | | | d | | | mobili | | | ty | | | Hypoxe | | | carson | | | | | | Pneumo | | | tricia | | | due to | | | | | | Methic | | | illin | | | resist | | | ant | | | Staphy | | | lococc | | | us | | | aureus | | | | | | Modera | | | te | | | protei | | | n-bang | | | julieta | | | malnut | | | rition | | | | | | 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 | | [facility] [place] | | | [place] | | | Medica | | | l | | | Surgic | | | al | | | Influe | | | nza | | | due to | | | other | | | | | | identi | | | fied | | | influe | | | nza | | | virus | | | with | | | other | | | | | | Chest | | | pain, | | | unspec | | | ified | | | | | | Chroni | | | c | | | obstru | | | ctive | | | pulmon | | | madison | | | diseas | | | e with | | | | | | (acute | | | ) | | | exacer | | | bati | | | | | | Athero | | | sclero | | | tic | | | heart | | | diseas | | | e of | | | red cliff | | | | | | palencia | | | ry | | | artery | | | witho | | | | | | Heart | | | failur | | | e, | | | unspec | | | ified | | | | | | Acute | | | on | | | chroni | | | c | | | diasto | | | lic | | | (conge | | | stive) | | | heart | | | | | | failur | | | e Nov | | | 27, | | | 2019 | | | Provid | | | ence | | | [facility] | [facility] [place] | | | [place] | | | Medica | | | l | | | Surgic | | | al | | | Sepsis | | | , | | | unspec | | | ified | | | organi | | | sm | | | Divert | | | iculit | | | is of | | | intest | | | ine, | | | part | | | unspec | | | ified, | | | | | | withou | | | t | | | perfor | | | | | | Other | | | specif | | | ied | | | abnorm | | | al | | | findin | | | gs of | | | blood | | | chemis | | | try | | | | | | Abnorm | | | al | | | findin | | | gs on | | | diagno | | | stic | | | imagin | | | g of | | | other | | | parts | | | of dig | | | | | | Other | | | specif | | | ied | | | diseas | | | es of | | | pancre | | | as | | | Chroni | | | c | | | obstru | | | ctive | | | pulmon | | | madison | | | diseas | | | e, | | | unspec | | | ified | | | Nov | | | 14, | | | 2019 | | | Provid | | | ence | | | [facility] | [facility] [place] | | | [place] | | | Medica | | | l | | | Surgic | | | al | | | Anemia | | | in | | | other | | | chroni | | | c | | | diseas | | | es | | | classi | | | fied | | | elsewh | | | ere | | | Chest | | | pain, | | | | | | unspec | | | ified | | | | | | Melena | | | | | | Gastro | | | intest | | | inal | | | hemorr | | | hector, | | | unspec | | | ified | | | | | | Centri | | | lobula | | | r | | | emphys | | | eliza | | | | | | Divert | | | iculit | | | is of | | | intest | | | ine, | | | part | | | unspec | | | ified, | | | | | | withou | | | t | | | perfor | | | | | | Athero | | | sclero | | | tic | | | heart | | | diseas | | | e of | | | red cliff | | | | | | palencia | | | ry | | | artery | | | witho | | | | | | Depend | | | ence | | | on | | | other | | | enabli | | | ng | | | faith | | | es and | | | | | | device | | | s | | | Panlob | | | ular | | | emphys | | | eliza | | | Other | | | | | | reduce | | | d | | | mobili | | | ty | | | Oct | | | 15, | | | 2019 | | | Provid | | | ence | | | [facility] | [facility] | [place] | | | [place] | | | Medica | | | l | | | Surgic | | | al | | | Sepsis | | | , | | | unspec | | | ified | | | organi | | | sm | | | Pneumo | | | tricia, | | | unspec | | | ified | | | organi | | | sm | | | Chroni | | | c | | | obstru | | | ctive | | | pulmon | | | madison | | | diseas | | | e with | | | | | | (acute | | | ) | | | exacer | | | bati | | | | | | Unspec | | | ified | | | severe | | | | | | protei | | | n-bang | | | julieta | | | malnut | | | rition | | | | | | Major | | | depres | | | sive | | | disord | | | er, | | | single | | | | | | episod | | | e, | | | unspec | | | ified | | | | | | Anxiet | | | y | | | disord | | | er, | | | unspec | | | ified | | | | | | Essent | | | ial | | | (prima | | | ry) | | | hypert | | | ension | | | | | | Other | | | viral | | | infect | | | ions | | | of | | | unspec | | | ified | | | site | | | | | | Acute | | | on | | | chroni | | | c | | | diasto | | | lic | | | (conge | | | stive) | | | heart | | | | | | failur | | | e | | | Lobar | | | pneumo | | | tricia, | | | unspec | | | ified | | | organi | | | sm | | | Aug | | | 26, | | | 2019 | | | Provid | | | ence | | | [facility] [place] 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 | | | [place] | | | [place] | | | Medica | | | l | | | Surgic | | | al | | | Chest | | | pain / | | | R-O | | | PE / | | | Aortic | | | | | | Stenos | | | is | | | post | | | TAVR / | | | NIDDM | | | / H | | | | | | hypoxi | | | c | | | respir | | | atory | | | failur | | | e, | | | chest | | | pain, | | | elevat | | | ed d | | | dimer. | | | | | | Chroni | | | c | | | obstru | | | ctive | | | pulmon | | | madison | | | diseas | | | e, | | | unspec | | | ified | | | | | | Other | | | chroni | | | c pain | | | | | | Other | | | malais | | | e | | | Low | | | back | | | pain | | | May | | | 17, | | | 2019 | | | [place] | | | | | | [facility]era | | | [facility] H. | | | [place] | | | [place] | | | Surgic | | | al | | | Servic | | | es | | | Nonrhe | | | umatic | | | | | | aortic | | | | | | (valve | | | ) | | | stenos | | | is | | | Shortn | | | ess of | | | | | | breath | | | May | | | 8, | | | 2019 | | | [place] | | | | | | [facility]era | | | [facility] H. | | | [place] | | | [place] | | | Medica | | | l | | | Surgic | | | al | | | MEDICA | | | L | | | Chroni | | | c | | | obstru | | | ctive | | | pulmon | | | madison | | | diseas | | | e, | | | unspec | | | ified | | | | | | Other | | | atresi | | | a of | | | aorta | | | | | | Coarct | | | ation | | | of | | | aorta | | | | | | Syncop | | | e and | | | collap | | | se | | | May 4, | | | 2019 | | | Good | | | Samari | | | [facility] | | | | | | [place] | | | [place] | | | Cardio | | | logy | | | CP, | | | Nausea | | | , | | | Dyspne | | | a | | | Other | | | atresi | | | a of | | | aorta | | | | | | Unspec | | | ified | | | atrial | | | | | | fibril | | | lation | | | | | | Coarct | | | ation | | | of | | | aorta | | | Care | | | TeamPr | | | ovider | | | | | | Specia | | | lty | | | Phone | | | Fax | | | Servic | | | e | | | Dates | | | IONESC | | | U-TAJT | | | I, | | | CLAUDI | | | U-GILY | | | , | | | M.D. | | | [employer] | | | al | | | Medici | | | ne | | | (509) | | | [phone] | | | 00 | | | (509) | | | [phone] | | | 10 | | | Curren | | | t | | | Kannie | | | r, | | | Wyndi | | | Case | | | Manage | | | r/Care | | | | | | Coordi | | | nator | | | ([phone]) | | | [phone] | | | 29 | | | Sep 1, | | | 2019 | | | - | | | Curren | | | t | | | Collec | | | tive | | | Portal | | | This | | | patien | | | t has | | | regist | | | ered | | | at the | | | | | | Provid | | | ence | | | [facility] | | | [facility] | | | | | | Emerge | | | ncy | | | Depart | | | ment | | | For | | | more | | | inform | | | ation | | | visit: | | | | | | https: | | | //prov | | | .colle | | | ctivem | | | edical | | | [email or web address] | | | [email or web address] | | | [id number] | | | [phone] | | | [email or web address] | | | [id number] | | | [id number] | | | [id number] | | | | | | PLEASE | | | NOTE: | | | 1. | | | Any | | | care | | | recomm | | | endati | | | ons | | | and | | | other | | | clinic | | | al | | | inform | | | ation | | | are | | | provid | | | ed as | | | guidel | | | ash | | | or for | | | | | | histor | | | ical | | | purpos | | | es | | | only, | | | and | | | provid | | | ers | | | should | | | | | | exerci | | | se | | | their | | | own | | | clinic | | | al | | | judgme | | | nt | | | when | | | provid | | | ing | | | care. | | | 2. | | | You | | | may | | | only | | | use | | | this | | | inform | | | ation | | | for | | | purpos | | | es of | | | treatm | | | ent, | | | paymen | | | t or | | | health | | | care | | | operat | | | ions | | | activi | | | ties, | | | and | | | subjec | | | t to | | | the | | | limita | | | tions | | | of | | | applic | | | able | | | Collec | | | tive | | | Polici | | | es. | | | 3. | | | You | | | should | | | | | | consul | | | t | | | direct | | | ly | | | with | | | the | | | organi | | | zation | | | that | | | provid | | | ed a | | | care | | | guidel | | | ine or | | | other | | | | | | clinic | | | al | | | histor | | | y with | | | any | | | questi | | | ons | | | about | | | additi | | | onal | | | inform | | | ation | | | or | | | accura | | | cy or | | | comple | | | teness | | | of | | | inform | | | ation | | | provid | | | ed.? | | | 2020 | | | Collec | | | tive | | | Medica | | | l | | | [employer] | | | logies | | | , Inc[employer] | | | - | | | [email or web address] | | | llecti | | | vemedi | | | [email or web address] | | | m | +---+--------+ documented in this encounter Results Red Blood Cells (PRBC) - Crossmatch (02/10/2020 1:46 PM PDT) + + + + + + | Component | Value | Ref Range | Performed | Pathologist | | | | | At | Signature | + + + + + + | Product | [id number] | | [facility] | | | Code | | | [facility] | | | | | | [facility] | | | | | | [facility] - | | | | | | BLOOD BANK | | + + + + + + | UNIT # | [id number] | | [facility] | | | | | | [facility] | | | | | | [facility] | | | | | | [facility] - | | | | | | BLOOD BANK | | + + + + + + | UNIT ABO | A | | [facility] | | | | | | [facility] | | | | | | [facility] | | | | | | [facility] - | | | | | | BLOOD BANK | | + + + + + + | UNIT RH | POS | | [facility] | | | | | | [facility] | | | | | | [facility] | | | | | | [facility] - | | | | | | BLOOD BANK | | + + + + + + | CROSSMATCH | Compatible | | [facility] | | | INTERP | | | [facility] | | | | | | [facility] | | | | | | CENTER - | | | | | | BLOOD BANK | | + + + + + + | Unit Status | Issued | | [facility] | | | | | | [facility] | | | | | | [facility] | | | | | | CENTER - | | | | | | BLOOD BANK | | + + + + + + | Blood | [id number] | | [facility] | | | Product | | | [facility] | | | Expiration | | | MEDICAL | | | Date and | | | CENTER - | | | Time | | | BLOOD BANK | | + + + + + + | Product | [id number] | | [facility] | | | Blood Type | | | [facility] | | | Barcode | | | MEDICAL | | | | | | CENTER - | | | | | | BLOOD BANK | | + + + + + + + + | Specimen | + + | | + + + + + + + | Performing | Address | City/State/Zipcode | Phone Number | | Organization | | | | + + + + + | [facility] | [address] | [place] | | | [facility] | | [address] | | | - BLOOD BANK | | | | + + + + + Magnesium (02/08/2020 6:09 AM PDT) + +-------+ + + + | Component | Value | Ref Range | Performed | Pathologist | | | | | At | Signature | + +-------+ + + + | Magnesium | 2.1 | 1.6 - 2.6 mg/dL | [facility] | | | | | | [facility] | | | | | | [facility]ICAL | | | | | | CENTER - | | | | | | LABORATORY | | + +-------+ + + + + + | Specimen | + + | Blood | + + + + + + + | Performing | Address | City/State/Zipcode | Phone Number | | Organization | | | | + + + + + | [facility] | [address] | [place] | [phone] | | [facility] | | [address] | | | - LABORATORY | | | | + + + + + CBC with Differential (02/08/2020 6:09 AM PDT) + + + + + + | Component | Value | Ref Range | Performed | Pathologist | | | | | At | Signature | + + + + + + | WBC | 10.8 | 4.0 - 11.0 K/uL | [facility] | | | | | | [facility] | | | | | | [facility] | | | | | | CENTER - | | | | | | LABORATORY | | + + + + + + | RBC | 3.13 (L) | 3.70 - 5.20 | [facility] | | | | | M/uL | [facility] | | | | | | [facility] | | | | | | CENTER - | | | | | | LABORATORY | | + + + + + + | Hemoglobin | 9.1 (L) | 11.5 - 16.0 | [facility] | | | | | g/dL | [facility] | | | | | | MEDICAL | | | | | | CENTER - | | | | | | LABORATORY | | + + + + + + | Hematocrit | 28.2 (L) | 34.0 - 47.0 % | [facility] | | | | | | [facility] | | | | | | MEDICAL | | | | | | CENTER - | | | | | | LABORATORY | | + + + + + + | MCV | 90.1 | 83.0 - 101.0 fL | [facility] | | | | | | [facility] | | | | | | MEDICAL | | | | | | CENTER - | | | | | | LABORATORY | | + + + + + + | MCH | 29.1 | 28.0 - 35.0 pg | [facility] | | | | | | [facility] | | | | | | MEDICAL | | | | | | CENTER - | | | | | | LABORATORY | | + + + + + + | MCHC | 32.3 | 32.0 - 36.0 | [facility] | | | | | g/dL | [facility] | | | | | | MEDICAL | | | | | | CENTER - | | | | | | LABORATORY | | + + + + + + | RDW-CV | 17.7 (H) | <15.0 % | [facility] | | | | | | [facility] | | | | | | MEDICAL | | | | | | CENTER - | | | | | | LABORATORY | | + + + + + + | RDW-SD | 57.8 (H) | 35.1 - 46.3 fL | [facility] | | | | | | [facility] | | | | | | MEDICAL | | | | | | CENTER - | | | | | | LABORATORY | | + + + + + + | Platelet | 123 (L) | 140 - 440 K/uL | [facility] | | | Count | | | [facility] | | | | | | MEDICAL | | | | | | CENTER - | | | | | | LABORATORY | | + + + + + + | MPV | 11.2 | 6.5 - 12.4 fL | [facility] | | | | | | [facility] | | | | | | MEDICAL | | | | | | CENTER - | | | | | | LABORATORY | | + + + + + + | Immature | 2.4Comment: Low PLT + | 0.9 - 11.2 % | [facility] | | | Platelet | Low IPF are consistent | | [facility] | | | Fraction | with a production | | MEDICAL | | | | disorder. Low PLT + High | | CENTER - | | | | IPF are consistent with | | LABORATORY | | | | increased platelet | | | | | | destruction. | | | | + + + + + + | % | 69.1 | 45.0 - 82.0 % | [facility] | | | Neutrophils | | | [facility] | | | | | | MEDICAL | | | | | | CENTER - | | | | | | LABORATORY | | + + + + + + | % | 17.5 (L) | 20.0 - 45.0 % | [facility] | | | Lymphocytes | | | [facility] | | | | | | MEDICAL | | | | | | CENTER - | | | | | | LABORATORY | | + + + + + + | % Monocytes | 11.1 | 4.0 - 12.0 % | [facility] | | | | | | [facility] | | | | | | MEDICAL | | | | | | CENTER - | | | | | | LABORATORY | | + + + + + + | % | 1.6 | 0.0 - 5.0 % | [facility] | | | Eosinophils | | | [facility] | | | | | | MEDICAL | | | | | | CENTER - | | | | | | LABORATORY | | + + + + + + | % Basophils | 0.1 | 0.0 - 1.0 % | [facility] | | | | | | [facility] | | | | | | [facility] | | | | | | CENTER - | | | | | | LABORATORY | | + + + + + + | % Immature | 0.6 (H)Comment: | 0.0 - 0.4 % | [facility] | | | Granulocyte | Preliminary studies have | | [facility] | | | s | indicated the IG% | | MEDICAL | | | | and/or IG# show promise | | CENTER - | | | | as an early indicator | | LABORATORY | | | | for infection. | | | | + + + + + + | Absolute | 7.47 | 1.80 - 8.50 | [facility] | | | Neutrophils | | K/uL | [facility] | | | | | | MEDICAL | | | | | | CENTER - | | | | | | LABORATORY | | + + + + + + | Absolute | 1.89 | 0.60 - 3.20 | [facility] | | | Lymphocytes | | K/uL | [facility] | | | | | | MEDICAL | | | | | | CENTER - | | | | | | LABORATORY | | + + + + + + | Absolute | 1.20 (H) | 0.00 - 1.00 | [facility] | | | Monocytes | | K/uL | [facility] | | | | | | MEDICAL | | | | | | CENTER - | | | | | | LABORATORY | | + + + + + + | Absolute | 0.17 | 0.00 - 0.40 | [facility] | | | Eosinophils | | K/uL | [facility] | | | | | | MEDICAL | | | | | | CENTER - | | | | | | LABORATORY | | + + + + + + | Absolute | 0.01 | 0.00 - 0.10 | [facility] | | | Basophils | | K/uL | [facility] | | | | | | MEDICAL | | | | | | CENTER - | | | | | | LABORATORY | | + + + + + + | Absolute | 0.07 (H) | 0.00 - 0.03 | [facility] | | | Immature | | K/uL | [facility] | | | Granulocyte | | | MEDICAL | | | s | | | CENTER - | | | | | | LABORATORY | | + + + + + + | % nRBC | 0 | 0 - 2 per 100 | [facility] | | | | | WBCs | [facility] | | | | | | MEDICAL | | | | | | CENTER - | | | | | | LABORATORY | | + + + + + + | Absolute | 0.00 | 0.00 - 0.01 | [facility] | | | nRBC | | K/uL | [facility] | | | | | | MEDICAL | | | | | | CENTER - | | | | | | LABORATORY | | + + + + + + + + | Specimen | + + | Blood | + + + + + + + | Performing | Address | City/State/Zipcode | Phone Number | | Organization | | | | + + + + + | [facility] | [address] | [place], [place] | [phone] | | [facility] | | [address] | | | - LABORATORY | | | | + + + + + Basic Metabolic Panel (02/08/2020 6:09 AM PDT) + + + + + + | Component | Value | Ref Range | Performed | Pathologist | | | | | At | Signature | + + + + + + | Na | 141 | 136 - 145 | [facility] | | | | | mmol/L | [facility] | | | | | | MEDICAL | | | | | | CENTER - | | | | | | LABORATORY | | + + + + + + | K | 4.4 | 3.4 - 5.1 | [facility] | | | | | mmol/L | [facility] | | | | | | MEDICAL | | | | | | CENTER - | | | | | | LABORATORY | | + + + + + + | Cl | 108 (H) | 98 - 107 mmol/L | [facility] | | | | | | [facility] | | | | | | MEDICAL | | | | | | CENTER - | | | | | | LABORATORY | | + + + + + + | CO2 | 29 | 20 - 31 mmol/L | [facility] | | | | | | [facility] | | | | | | MEDICAL | | | | | | CENTER - | | | | | | LABORATORY | | + + + + + + | Anion Gap | 4 | 3 - 16 mmol/L | [facility] | | | | | | [facility] | | | | | | MEDICAL | | | | | | CENTER - | | | | | | LABORATORY | | + + + + + + | Glucose | 77 | 60 - 106 mg/dL | [facility] | | | | | | [facility] | | | | | | MEDICAL | | | | | | CENTER - | | | | | | LABORATORY | | + + + + + + | BUN | 19 | 9 - 23 mg/dL | [facility] | | | | | | [facility] | | | | | | MEDICAL | | | | | | CENTER - | | | | | | LABORATORY | | + + + + + + | Creatinine | 0.78 | 0.55 - 1.02 | [facility] | | | | | mg/dL | [facility] | | | | | | MED[facility] | | | | | | CENTER - | | | | | | LABORATORY | | + + + + + + | eGFR if not | >60Comment: GLOMERULAR | >=60 | [facility] | | | | FILTRATION | mL/min/1.73m2 | [facility] | | | HUNGARIAN | RATE,ESTIMATED | | MEDICAL | | | | mL/min/1.08k1Iauy than | | CENTER - | | | | 60 Chronic kidney | | LABORATORY | | | | disease,if found over a | | | | | | 3-month period.Less than | | | | | | 15 Kidney failureFor | | | | | | | | | | | | Americans,multiply the | | | | | | calculated GFR by 1.21. | | | | | | | | | | + + + + + + | Calcium | 7.6 (L) | 8.7 - 10.4 | [facility] | | | | | mg/dL | [facility] | | | | | | MEDICAL | | | | | | CENTER - | | | | | | LABORATORY | | + + + + + + | BUN/Creatin | 24.4 | | [facility] | | | ine Ratio | | | [facility] | | | | | | MEDICAL | | | | | | CENTER - | | | | | | LABORATORY | | + + + + + + + + | Specimen | + + | Blood | + + + + + + + | Performing | Address | City/State/Zipcode | Phone Number | | Organization | | | | + + + + + | [facility] | [address] | [place] | [phone] | | [facility] | | [address] | | | - LABORATORY | | | | + + + + + VAS Upper Extremity Venous Left (02/07/2020 6:08 PM PDT) + + | Specimen | + + | | + + + + + | Impressions | Performed At | + + + | No evidence for DVT within the radial and ulnar vessels. Edema | [facility] | | is noted in the area of patient's reported swelling in the left | | | proximal forearm. Other vessels were not imaged. Dictated and | | | Signed by: Bartolome Neff MD Electronically signed: 02/07/2020 7:42 | | | PM | | + + + + + + | Narrative | Performed At | + + + | VAS UPPER EXTREMITY VENOUS LEFT 02/07/2020 4:52 PM HISTORY: left | [facility] | | forearm swelling, concern for hematoma vs clot. COMPARISON: None. | | | PROTOCOL: Tomlinson scale and Doppler images of the upper extremity | | | veins. FINDINGS: Line is noted in the mid basilic which is | | | patent. Radial and ulnar vessels are patent. | | + + + + + | Procedure Note | + + | Kobe, Rad Results In - 02/07/2020 7:45 PM PDT VAS UPPER EXTREMITY VENOUS LEFT | | 02/07/2020 4:52 PM HISTORY: left forearm swelling, concern for hematoma vs | | clot.COMPARISON: None.PROTOCOL: Tomlinson scale and Doppler images of the upper extremity | | veins.FINDINGS:Line is noted in the mid basilic which is patent. Radial and ulnar | | vessels arepatent.IMPRESSION: No evidence for DVT within the radial and ulnar | | vessels.Edema is noted in the area of patient's reported swelling in the left | | proximalforearm.Other vessels were not imaged.Dictated and Signed by: Bartolome Neff MD | | Electronically signed: 02/07/2020 7:42 PM | |FINDINGS: | |Line is noted in the mid basilic which is patent. Radial and ulnar vessels are | |patent. | | | |IMPRESSION: | |No evidence for DVT within the radial and ulnar vessels. | | | |Edema is noted in the area of patient's reported swelling in the left proximal | |forearm. | | | |Other vessels were not imaged. | | | |Dictated and Signed by: Bartolome Neff MD | | Electronically signed: 02/07/2020 7:42 PM | + + + +---------+ + + | Performing | Address | City/State/Zipcode | Phone Number | | Organization | | | | + +---------+ + + | [facility] | | | | + +---------+ + + Type and Screen (02/07/2020 3:10 PM PDT) + + + + + + | Component | Value | Ref Range | Performed | Pathologist | | | | | At | Signature | + + + + + + | ABO | A | | [facility] | | | | | | [facility] | | | | | | MEDICAL | | | | | | CENTER - | | | | | | BLOOD BANK | | + + + + + + | Rh Type | Positive | | [facility] | | | | | | [facility] | | | | | | MEDICAL | | | | | | CENTER - | | | | | | BLOOD BANK | | + + + + + + | Antibody | Negative | | [facility] | | | Screen | | | [facility] | | | | | | MEDICAL | | | | | | CENTER - | | | | | | BLOOD BANK | | + + + + + + + + | Specimen | + + | Blood | + + + + + + + | Performing | Address | City/State/Zipcode | Phone Number | | Organization | | | | + + + + + | [facility] | [address] | [place] | | | [facility] | | [address] | | | - BLOOD BANK | | | | + + + + + CBC with Differential (02/07/2020 12:45 PM PDT) + + + + + + | Component | Value | Ref Range | Performed | Pathologist | | | | | At | Signature | + + + + + + | WBC | 12.8 (H) | 4.0 - 11.0 K/uL | [facility] | | | | | | [facility] | | | | | | MEDICAL | | | | | | CENTER - | | | | | | LABORATORY | | + + + + + + | RBC | 2.62 (L) | 3.70 - 5.20 | [facility] | | | | | M/uL | [facility] | | | | | | MEDICAL | | | | | | CENTER - | | | | | | LABORATORY | | + + + + + + | Hemoglobin | 7.5 (LL)Comment: | 11.5 - 16.0 | [facility] | | | | Consistent with previous | g/dL | [facility] | | | | results. | | MEDICAL | | | | | | CENTER - | | | | | | LABORATORY | | + + + + + + | Hematocrit | 25.4 (L) | 34.0 - 47.0 % | [facility] | | | | | | [facility] | | | | | | MEDICAL | | | | | | CENTER - | | | | | | LABORATORY | | + + + + + + | MCV | 96.9 | 83.0 - 101.0 fL | [facility] | | | | | | [facility] | | | | | | MEDICAL | | | | | | CENTER - | | | | | | LABORATORY | | + + + + + + | MCH | 28.6 | 28.0 - 35.0 pg | [facility] | | | | | | [facility] | | | | | | MEDICAL | | | | | | CENTER - | | | | | | LABORATORY | | + + + + + + | MCHC | 29.5 (L) | 32.0 - 36.0 | [facility] | | | | | g/dL | [facility] | | | | | | MEDICAL | | | | | | CENTER - | | | | | | LABORATORY | | + + + + + + | RDW-CV | 15.9 (H) | <15.0 % | [facility] | | | | | | [facility] | | | | | | MEDICAL | | | | | | CENTER - | | | | | | LABORATORY | | + + + + + + | RDW-SD | 55.9 (H) | 35.1 - 46.3 fL | [facility] | | | | | | [facility] | | | | | | MEDICAL | | | | | | CENTER - | | | | | | LABORATORY | | + + + + + + | Platelet | 135 (L) | 140 - 440 K/uL | [facility] | | | Count | | | [facility] | | | | | | MEDICAL | | | | | | CENTER - | | | | | | LABORATORY | | + + + + + + | MPV | 11.7 | 6.5 - 12.4 fL | [facility] | | | | | | [facility] | | | | | | MEDICAL | | | | | | CENTER - | | | | | | LABORATORY | | + + + + + + | % | 89.4 (H) | 45.0 - 82.0 % | [facility] | | | Neutrophils | | | [facility] | | | | | | MEDICAL | | | | | | CENTER - | | | | | | LABORATORY | | + + + + + + | % | 5.7 (L) | 20.0 - 45.0 % | [facility] | | | Lymphocytes | | | [facility] | | | | | | MEDICAL | | | | | | CENTER - | | | | | | LABORATORY | | + + + + + + | % Monocytes | 3.7 (L) | 4.0 - 12.0 % | [facility] | | | | | | [facility] | | | | | | MEDICAL | | | | | | CENTER - | | | | | | LABORATORY | | + + + + + + | % | 0.5 | 0.0 - 5.0 % | [facility] | | | Eosinophils | | | [facility] | | | | | | MEDICAL | | | | | | CENTER - | | | | | | LABORATORY | | + + + + + + | % Basophils | 0.1 | 0.0 - 1.0 % | [facility] | | | | | | [facility] | | | | | | MEDICAL | | | | | | CENTER - | | | | | | LABORATORY | | + + + + + + | % Immature | 0.6 (H)Comment: | 0.0 - 0.4 % | [facility] | | | Granulocyte | Preliminary studies have | | [facility] | | | s | indicated the IG% | | MEDICAL | | | | and/or IG# show promise | | CENTER - | | | | as an early indicator | | LABORATORY | | | | for infection. | | | | + + + + + + | Absolute | 11.48 (H) | 1.80 - 8.50 | [facility] | | | Neutrophils | | K/uL | [facility] | | | | | | MEDICAL | | | | | | CENTER - | | | | | | LABORATORY | | + + + + + + | Absolute | 0.73 | 0.60 - 3.20 | [facility] | | | Lymphocytes | | K/uL | [facility] | | | | | | MEDICAL | | | | | | CENTER - | | | | | | LABORATORY | | + + + + + + | Absolute | 0.47 | 0.00 - 1.00 | [facility] | | | Monocytes | | K/uL | [facility] | | | | | | MEDICAL | | | | | | CENTER - | | | | | | LABORATORY | | + + + + + + | Absolute | 0.06 | 0.00 - 0.40 | [facility] | | | Eosinophils | | K/uL | [facility] | | | | | | MEDICAL | | | | | | CENTER - | | | | | | LABORATORY | | + + + + + + | Absolute | 0.01 | 0.00 - 0.10 | [facility] | | | Basophils | | K/uL | [facility] | | | | | | MEDICAL | | | | | | CENTER - | | | | | | LABORATORY | | + + + + + + | Absolute | 0.08 (H) | 0.00 - 0.03 | [facility] | | | Immature | | K/uL | [facility] | | | Granulocyte | | | MEDICAL | | | s | | | CENTER - | | | | | | LABORATORY | | + + + + + + | % nRBC | 0 | 0 - 2 per 100 | [facility] | | | | | WBCs | [facility] | | | | | | MEDICAL | | | | | | CENTER - | | | | | | LABORATORY | | + + + + + + | Absolute | 0.00 | 0.00 - 0.01 | [facility] | | | nRBC | | K/uL | [facility] | | | | | | MEDICAL | | | | | | CENTER - | | | | | | LABORATORY | | + + + + + + + + | Specimen | + + | Blood | + + + + + + + | Performing | Address | City/State/Zipcode | Phone Number | | Organization | | | | + + + + + | [facility] | [address] | [place] | [phone] | | [facility] | | [address] | | | - LABORATORY | | | | + + + + + Magnesium (02/07/2020 5:45 AM PDT) + +-------+ + + + | Component | Value | Ref Range | Performed | Pathologist | | | | | At | Signature | + +-------+ + + + | Magnesium | 2.0 | 1.6 - 2.6 mg/dL | [facility] | | | | | | [facility] | | | | | | MEDICAL | | | | | | CENTER - | | | | | | LABORATORY | | + +-------+ + + + + + | Specimen | + + | Blood | + + + + + + + | Performing | Address | City/State/Zipcode | Phone Number | | Organization | | | | + + + + + | [facility] | [address] | [place] | [phone] | | [facility] | | [address] | | | - LABORATORY | | | | + + + + + CBC with Differential (02/07/2020 5:45 AM PDT) + + + + + + | Component | Value | Ref Range | Performed | Pathologist | | | | | At | Signature | + + + + + + | WBC | 15.1 (H) | 4.0 - 11.0 K/uL | [facility] | | | | | | [facility] | | | | | | MEDICAL | | | | | | CENTER - | | | | | | LABORATORY | | + + + + + + | RBC | 2.53 (L) | 3.70 - 5.20 | [facility] | | | | | M/uL | [facility] | | | | | | MEDICAL | | | | | | CENTER - | | | | | | LABORATORY | | + + + + + + | Hemoglobin | 7.4 (LL)Comment: | 11.5 - 16.0 | [facility] | | | | Critical Result called | g/dL | [facility] | | | | to and read back by | | MEDICAL | | | | Ariana Johnston RN on | | CENTER - | | | | 02/07/2020 at 6:14 AM by | | LABORATORY | | | | Vicki Newberry. | | | | + + + + + + | Hematocrit | 23.8 (L) | 34.0 - 47.0 % | [facility] | | | | | | [facility] | | | | | | MEDICAL | | | | | | CENTER - | | | | | | LABORATORY | | + + + + + + | MCV | 94.1 | 83.0 - 101.0 fL | [facility] | | | | | | [facility] | | | | | | MEDICAL | | | | | | CENTER - | | | | | | LABORATORY | | + + + + + + | MCH | 29.2 | 28.0 - 35.0 pg | [facility] | | | | | | [facility] | | | | | | MEDICAL | | | | | | CENTER - | | | | | | LABORATORY | | + + + + + + | MCHC | 31.1 (L) | 32.0 - 36.0 | [facility] | | | | | g/dL | [facility] | | | | | | [facility] | | | | | | CENTER - | | | | | | LABORATORY | | + + + + + + | RDW-CV | 15.9 (H) | <15.0 % | [facility] | | | | | | [facility] | | | | | | [facility] | | | | | | [facility] - | | | | | | LABORATORY | | + + + + + + | RDW-SD | 54.8 (H) | 35.1 - 46.3 fL | [facility] | | | | | | [facility] | | | | | | [facility] | | | | | | [facility] - | | | | | | LABORATORY | | + + + + + + | Platelet | 109 (L) | 140 - 440 K/uL | [facility] | | | Count | | | [facility] | | | | | | [facility] | | | | | | CENTER - | | | | | | LABORATORY | | + + + + + + | MPV | 12.5 (H) | 6.5 - 12.4 fL | [facility] | | | | | | [facility] | | | | | | [facility] | | | | | | [facility] - | | | | | | LABORATORY | | + + + + + + | Immature | 2.1Comment: Low PLT + | 0.9 - 11.2 % | [facility] | | | Platelet | Low IPF are consistent | | [facility] | | | Fraction | with a production | | MEDICAL | | | | disorder. Low PLT + High | | CENTER - | | | | IPF are consistent with | | LABORATORY | | | | increased platelet | | | | | | destruction. | | | | + + + + + + | % | 78.3 | 45.0 - 82.0 % | [facility] | | | Neutrophils | | | [facility] | | | | | | [facility] | | | | | | CENTER - | | | | | | LABORATORY | | + + + + + + | % | 11.8 (L) | 20.0 - 45.0 % | [facility] | | | Lymphocytes | | | [facility] | | | | | | [facility] | | | | | | CENTER - | | | | | | LABORATORY | | + + + + + + | % Monocytes | 7.9 | 4.0 - 12.0 % | [facility] | | | | | | [facility] | | | | | | [facility] | | | | | | CENTER - | | | | | | LABORATORY | | + + + + + + | % | 0.8 | 0.0 - 5.0 % | [facility] | | | Eosinophils | | | [facility] | | | | | | MEDICAL | | | | | | CENTER - | | | | | | LABORATORY | | + + + + + + | % Basophils | 0.1 | 0.0 - 1.0 % | [facility] | | | | | | [facility] | | | | | | [facility] | | | | | | CENTER - | | | | | | LABORATORY | | + + + + + + | % Immature | 1.1 (H)Comment: | 0.0 - 0.4 % | [facility] | | | Granulocyte | Preliminary studies have | | [facility] | | | s | indicated the IG% | | MEDICAL | | | | and/or IG# show promise | | CENTER - | | | | as an early indicator | | LABORATORY | | | | for infection. | | | | + + + + + + | Absolute | 11.84 (H) | 1.80 - 8.50 | [facility] | | | Neutrophils | | K/uL | [facility] | | | | | | [facility] | | | | | | CENTER - | | | | | | LABORATORY | | + + + + + + | Absolute | 1.79 | 0.60 - 3.20 | [facility] | | | Lymphocytes | | K/uL | [facility] | | | | | | [facility] | | | | | | CENTER - | | | | | | LABORATORY | | + + + + + + | Absolute | 1.20 (H) | 0.00 - 1.00 | [facility] | | | Monocytes | | K/uL | [facility] | | | | | | [facility] | | | | | | CENTER - | | | | | | LABORATORY | | + + + + + + | Absolute | 0.12 | 0.00 - 0.40 | [facility] | | | Eosinophils | | K/uL | [facility] | | | | | | [facility]ICAL | | | | | | CENTER - | | | | | | LABORATORY | | + + + + + + | Absolute | 0.02 | 0.00 - 0.10 | [facility] | | | Basophils | | K/uL | [facility] | | | | | | [facility] | | | | | | CENTER - | | | | | | LABORATORY | | + + + + + + | Absolute | 0.17 (H) | 0.00 - 0.03 | [facility] | | | Immature | | K/uL | [facility] | | | Granulocyte | | | MEDICAL | | | s | | | CENTER - | | | | | | LABORATORY | | + + + + + + | % nRBC | 0 | 0 - 2 per 100 | [facility] | | | | | WBCs | [facility] | | | | | | MED[facility] | | | | | | CENTER - | | | | | | LABORATORY | | + + + + + + | Absolute | 0.00 | 0.00 - 0.01 | [facility] | | | nRBC | | K/uL | [facility] | | | | | | [facility] | | | | | | CENTER - | | | | | | LABORATORY | | + + + + + + + + | Specimen | + + | Blood | + + + + + + + | Performing | Address | City/State/Zipcode | Phone Number | | Organization | | | | + + + + + | [facility] | [address] | [place] | [phone] | | [facility] | | [address] | | | - LABORATORY | | | | + + + + + Basic Metabolic Panel (02/07/2020 5:45 AM PDT) + + + + + + | Component | Value | Ref Range | Performed | Pathologist | | | | | At | Signature | + + + + + + | Na | 143 | 136 - 145 | [facility] | | | | | mmol/L | [facility] | | | | | | [facility] | | | | | | C[facility] - | | | | | | LABORATORY | | + + + + + + | K | 4.2 | 3.4 - 5.1 | [facility] | | | | | mmol/L | [facility] | | | | | | [facility] | | | | | | C[facility] - | | | | | | LABORATORY | | + + + + + + | Cl | 109 (H) | 98 - 107 mmol/L | [facility] | | | | | | [facility] | | | | | | [facility] | | | | | | CENTER - | | | | | | LABORATORY | | + + + + + + | CO2 | 31 | 20 - 31 mmol/L | [facility] | | | | | | [facility] | | | | | | [facility] | | | | | | CENTER - | | | | | | LABORATORY | | + + + + + + | Anion Gap | 3 | 3 - 16 mmol/L | [facility] | | | | | | [facility] | | | | | | [facility] | | | | | | CENTER - | | | | | | LABORATORY | | + + + + + + | Glucose | 80 | 60 - 106 mg/dL | [facility] | | | | | | [facility] | | | | | | [facility] | | | | | | CENTER - | | | | | | LABORATORY | | + + + + + + | BUN | 19 | 9 - 23 mg/dL | [facility] | | | | | | [facility] | | | | | | [facility] | | | | | | CENTER - | | | | | | LABORATORY | | + + + + + + | Creatinine | 0.66 | 0.55 - 1.02 | [facility] | | | | | mg/dL | [facility] | | | | | | [facility] | | | | | | CENTER - | | | | | | LABORATORY | | + + + + + + | eGFR if not | >60Comment: GLOMERULAR | >=60 | [facility] | | | | FILTRATION | mL/min/1.73m2 | [facility] | | | [facility]UNG[place]IAN | RATE,ESTIMATED | | MEDICAL | | | | mL/min/1.25k3Cdrn than | | CENTER - | | | | 60 Chronic kidney | | LABORATORY | | | | disease,if found over a | | | | | | 3-month period.Less than | | | | | | 15 Kidney failureFor | | | | | | | | | | | | Americans,multiply the | | | | | | calculated GFR by 1.21. | | | | | | | | | | + + + + + + | Calcium | 7.4 (L) | 8.7 - 10.4 | [facility] | | | | | mg/dL | [facility] | | | | | | [facility] | | | | | | CENTER - | | | | | | LABORATORY | | + + + + + + | BUN/Creatin | 28.8 | | [facility] | | | ine Ratio | | | [facility] | | | | | | [facility] | | | | | | CENTER - | | | | | | LABORATORY | | + + + + + + + + | Specimen | + + | Blood | + + + + + + + | Performing | Address | City/State/Zipcode | Phone Number | | Organization | | | | + + + + + | [facility] | [address] | [place] | [phone] | | [facility] | | [address] | | | - LABORATORY | | | | + + + + + Sodium (02/06/2020 11:56 AM PDT) + +-------+ + + + | Component | Value | Ref Range | Performed | Pathologist | | | | | At | Signature | + +-------+ + + + | Na | 145 | 136 - 145 | [facility] | | | | | mmol/L | [facility] | | | | | | MEDICAL | | | | | | CENTER - | | | | | | LABORATORY | | + +-------+ + + + + + | Specimen | + + | Blood | + + + + + + + | Performing | Address | City/State/Zipcode | Phone Number | | Organization | | | | + + + + + | [facility] | [address] | [place] | [phone] | | [facility] | | [address] | | | - LABORATORY | | | | + + + + + Vancomycin, Trough (02/06/2020 11:56 AM PDT) + + + + + + | Component | Value | Ref Range | Performed | Pathologist | | | | | At | Signature | + + + + + + | Date of | | | [facility] | | | Last Dose | | | [facility] | | | | | | [facility] | | | | | | CENTER - | | | | | | LABORATORY | | + + + + + + | Time of | | | [facility] | | | Last Dose | | | [facility] | | | | | | [facility] | | | | | | CENTER - | | | | | | LABORATORY | | + + + + + + | Vancomycin | 14.4 (H) | 5.0 - 10.0 | [facility] | | | Trough | | ug/mL | [facility] | | | | | | MEDICAL | | | | | | CENTER - | | | | | | LABORATORY | | + + + + + + + + | Specimen | + + | Blood | + + + + + + + | Performing | Address | City/State/Zipcode | Phone Number | | Organization | | | | + + + + + | [facility] | [address] | [place] | [phone] | | [facility] | | [address] | | | - LABORATORY | | | | + + + + + Magnesium (02/06/2020 5:10 AM PDT) + +-------+ + + + | Component | Value | Ref Range | Performed | Pathologist | | | | | At | Signature | + +-------+ + + + | Magnesium | 1.9 | 1.6 - 2.6 mg/dL | [facility] | | | | | | [facility] | | | | | | MEDICAL | | | | | | CENTER - | | | | | | LABORATORY | | + +-------+ + + + + + | Specimen | + + | Blood | + + + + + + + | Performing | Address | City/State/Zipcode | Phone Number | | Organization | | | | + + + + + | [facility] | [address] | [place], [place] | [phone] | | [facility] | | [address] | | | - LABORATORY | | | | + + + + + CBC with Differential (02/06/2020 5:10 AM PDT) + + + + + + | Component | Value | Ref Range | Performed | Pathologist | | | | | At | Signature | + + + + + + | WBC | 12.9 (H) | 4.0 - 11.0 K/uL | [facility] | | | | | | [facility] | | | | | | MEDICAL | | | | | | CENTER - | | | | | | LABORATORY | | + + + + + + | RBC | 2.75 (L) | 3.70 - 5.20 | [facility] | | | | | M/uL | [facility] | | | | | | MEDICAL | | | | | | CENTER - | | | | | | LABORATORY | | + + + + + + | Hemoglobin | 8.0 (L) | 11.5 - 16.0 | [facility] | | | | | g/dL | [facility] | | | | | | MEDICAL | | | | | | CENTER - | | | | | | LABORATORY | | + + + + + + | Hematocrit | 26.6 (L) | 34.0 - 47.0 % | [facility] | | | | | | [facility] | | | | | | MEDICAL | | | | | | CENTER - | | | | | | LABORATORY | | + + + + + + | MCV | 96.7 | 83.0 - 101.0 fL | [facility] | | | | | | [facility] | | | | | | MEDICAL | | | | | | CENTER - | | | | | | LABORATORY | | + + + + + + | MCH | 29.1 | 28.0 - 35.0 pg | [facility] | | | | | | [facility] | | | | | | MEDICAL | | | | | | CENTER - | | | | | | LABORATORY | | + + + + + + | MCHC | 30.1 (L) | 32.0 - 36.0 | [facility] | | | | | g/dL | [facility] | | | | | | MEDICAL | | | | | | CENTER - | | | | | | LABORATORY | | + + + + + + | RDW-CV | 15.9 (H) | <15.0 % | [facility] | | | | | | [facility] | | | | | | MEDICAL | | | | | | CENTER - | | | | | | LABORATORY | | + + + + + + | RDW-SD | 55.8 (H) | 35.1 - 46.3 fL | [facility] | | | | | | [facility] | | | | | | MEDICAL | | | | | | CENTER - | | | | | | LABORATORY | | + + + + + + | Platelet | 136 (L) | 140 - 440 K/uL | [facility] | | | Count | | | [facility] | | | | | | MEDICAL | | | | | | CENTER - | | | | | | LABORATORY | | + + + + + + | MPV | 12.0 | 6.5 - 12.4 fL | [facility] | | | | | | [facility] | | | | | | MEDICAL | | | | | | CENTER - | | | | | | LABORATORY | | + + + + + + | % | 78.0 | 45.0 - 82.0 % | [facility] | | | Neutrophils | | | [facility] | | | | | | MEDICAL | | | | | | CENTER - | | | | | | LABORATORY | | + + + + + + | % | 11.6 (L) | 20.0 - 45.0 % | [facility] | | | Lymphocytes | | | [facility] | | | | | | MEDICAL | | | | | | CENTER - | | | | | | LABORATORY | | + + + + + + | % Monocytes | 8.5 | 4.0 - 12.0 % | [facility] | | | | | | [facility] | | | | | | MEDICAL | | | | | | CENTER - | | | | | | LABORATORY | | + + + + + + | % | 1.3 | 0.0 - 5.0 % | [facility] | | | Eosinophils | | | [facility] | | | | | | MEDICAL | | | | | | CENTER - | | | | | | LABORATORY | | + + + + + + | % Basophils | 0.1 | 0.0 - 1.0 % | [facility] | | | | | | [facility] | | | | | | MEDICAL | | | | | | CENTER - | | | | | | LABORATORY | | + + + + + + | % Immature | 0.5 (H)Comment: | 0.0 - 0.4 % | [facility] | | | Granulocyte | Preliminary studies have | | [facility] | | | s | indicated the IG% | | MEDICAL | | | | and/or IG# show promise | | CENTER - | | | | as an early indicator | | LABORATORY | | | | for infection. | | | | + + + + + + | Absolute | 10.05 (H) | 1.80 - 8.50 | [facility] | | | Neutrophils | | K/uL | [facility] | | | | | | MEDICAL | | | | | | CENTER - | | | | | | LABORATORY | | + + + + + + | Absolute | 1.50 | 0.60 - 3.20 | [facility] | | | Lymphocytes | | K/uL | [facility] | | | | | | MEDICAL | | | | | | CENTER - | | | | | | LABORATORY | | + + + + + + | Absolute | 1.09 (H) | 0.00 - 1.00 | [facility] | | | Monocytes | | K/uL | [facility] | | | | | | MEDICAL | | | | | | CENTER - | | | | | | LABORATORY | | + + + + + + | Absolute | 0.17 | 0.00 - 0.40 | [facility] | | | Eosinophils | | K/uL | [facility] | | | | | | MEDICAL | | | | | | CENTER - | | | | | | LABORATORY | | + + + + + + | Absolute | 0.01 | 0.00 - 0.10 | [facility] | | | Basophils | | K/uL | [facility] | | | | | | MEDICAL | | | | | | CENTER - | | | | | | LABORATORY | | + + + + + + | Absolute | 0.06 (H) | 0.00 - 0.03 | [facility] | | | Immature | | K/uL | [facility] | | | Granulocyte | | | MEDICAL | | | s | | | CENTER - | | | | | | LABORATORY | | + + + + + + | % nRBC | 0 | 0 - 2 per 100 | [facility] | | | | | WBCs | [facility] | | | | | | MEDICAL | | | | | | CENTER - | | | | | | LABORATORY | | + + + + + + | Absolute | 0.00 | 0.00 - 0.01 | [facility] | | | nRBC | | K/uL | [facility] | | | | | | MEDICAL | | | | | | CENTER - | | | | | | LABORATORY | | + + + + + + + + | Specimen | + + | Blood | + + + + + + + | Performing | Address | City/State/Zipcode | Phone Number | | Organization | | | | + + + + + | [facility] | [address] | [place] | [phone] | | [facility] | | [address] | | | - LABORATORY | | | | + + + + + Basic Metabolic Panel (02/06/2020 5:10 AM PDT) + + + + + + | Component | Value | Ref Range | Performed | Pathologist | | | | | At | Signature | + + + + + + | Na | 146 (H) | 136 - 145 | [facility] | | | | | mmol/L | [facility] | | | | | | MEDICAL | | | | | | CENTER - | | | | | | LABORATORY | | + + + + + + | K | 3.7 | 3.4 - 5.1 | [facility] | | | | | mmol/L | [facility] | | | | | | MEDICAL | | | | | | CENTER - | | | | | | LABORATORY | | + + + + + + | Cl | 111 (H) | 98 - 107 mmol/L | [facility] | | | | | | [facility] | | | | | | MEDICAL | | | | | | CENTER - | | | | | | LABORATORY | | + + + + + + | CO2 | 33 (H) | 20 - 31 mmol/L | [facility] | | | | | | [facility] | | | | | | MEDICAL | | | | | | CENTER - | | | | | | LABORATORY | | + + + + + + | Anion Gap | 2 (L) | 3 - 16 mmol/L | [facility] | | | | | | [facility] | | | | | | MEDICAL | | | | | | CENTER - | | | | | | LABORATORY | | + + + + + + | Glucose | 82 | 60 - 106 mg/dL | [facility] | | | | | | [facility] | | | | | | MEDICAL | | | | | | CENTER - | | | | | | LABORATORY | | + + + + + + | BUN | 21 | 9 - 23 mg/dL | [facility] | | | | | | [facility] | | [facility] | | | MEDICAL | | | | | | CENTER - | | | | | | LABORATORY | | + + + + + + | Creatinine | 0.60 | 0.55 - 1.02 | [facility] | | | | | mg/dL | [facility] | | | | | | MEDICAL | | | | | | CENTER - | | | | | | LABORATORY | | + + + + + + | eGFR if not | >60Comment: GLOMERULAR | >=60 | [facility] | | | | FILTRATION | mL/min/1.73m2 | [facility] | | | HUNGARIAN | RATE,ESTIMATED | | MEDICAL | | | | mL/min/1.49f9Larx than | | CENTER - | | | | 60 Chronic kidney | | LABORATORY | | | | disease,if found over a | | | | | | 3-month period.Less than | | | | | | 15 Kidney failureFor | | | | | | | | | | | | Americans,multiply the | | | | | | calculated GFR by 1.21. | | | | | | | | | | + + + + + + | Calcium | 7.7 (L) | 8.7 - 10.4 | [facility] | | | | | mg/dL | [facility] | | | | | | MEDICAL | | | | | | CENTER - | | | | | | LABORATORY | | + + + + + + | BUN/Creatin | 35.0 | | [facility] | | | ine Ratio | | | [facility] | | | | | | MEDICAL | | | | | | CENTER - | | | | | | LABORATORY | | + + + + + + + + | Specimen | + + | Blood | + + + + + + + | Performing | Address | City/State/Zipcode | Phone Number | | Organization | | | | + + + + + | [facility] | [address] | [place] | [phone] | | [facility] | | [address] | | | - LABORATORY | | | | + + + + + XR Chest AP Portable (02/05/2020 12:03 PM PDT) + + | Specimen | + + | | + + + + + | Impressions | Performed At | + + + | No acute cardiopulmonary disease. Hyperexpansion. Stable | [facility] | | cardiomegaly. Dictated and Signed by: John Groves MD | | | Electronically signed: 02/05/2020 5:12 PM | | + + + + + + | Narrative | Performed At | + + + | CLINICAL INFORMATION: shortness of breath. COMPARISON: | [facility] | | Radiograph and CT 01/31/2020. FINDINGS: Portable frontal chest | | | radiograph Lungs: No focal airspace disease, pleural effusion, or | | | pneumothorax. Hyperexpansion of the lungs. Minimal opacities at the | | | lung bases likely represent atelectasis. Chronic mild bronchial wall | | | thickening again appreciated. Heart/mediastinum: Mild | | | cardiomegaly. No tracheal deviation. Bones: No acute osseous | | | abnormality appreciated. Bony demineralization. | | + + + + + | Procedure Note | + + | Kobe, Rad Results In - 02/05/2020 5:16 PM PDT | | CLINICAL INFORMATION: shortness of breath. | | | | COMPARISON: Radiograph and CT 01/31/2020. | | | | FINDINGS: | | Portable frontal chest radiograph | | | | Lungs: No focal airspace disease, pleural effusion, or pneumothorax. | | Hyperexpansion of the lungs. Minimal opacities at the lung bases likely | | represent atelectasis. Chronic mild bronchial wall thickening again appreciated. | | | | Heart/mediastinum: Mild cardiomegaly. No tracheal deviation. | | | | Bones: No acute osseous abnormality appreciated. Bony demineralization. | | | | IMPRESSION: | | | | No acute cardiopulmonary disease. | | | | Hyperexpansion. | | | | Stable cardiomegaly. | | | | Dictated and Signed by: John Groves MD | | Electronically signed: 02/05/2020 5:12 PM | + + + +---------+ + + | Performing | Address | City/State/Zipcode | Phone Number | | Organization | | | | + +---------+ + + | [facility] | | | | + +---------+ + + Folate (02/05/2020 10:24 AM PDT) + +-------+ + + + | Component | Value | Ref Range | Performed | Pathologist | | | | | At | Signature | + +-------+ + + + | FOLATE | 8.8 | >5.4 ng/mL | [facility] | | | | | | [facility] | | | | | | MEDICAL | | | | | | CENTER - | | | | | | LABORATORY | | + +-------+ + + + + + | Specimen | + + | Blood | + + + + + + + | Performing | Address | City/State/Zipcode | Phone Number | | Organization | | | | + + + + + | [facility] | [address] | [place] | [phone] | | [facility] | | [address] | | | - LABORATORY | | | | + + + + + Sodium (02/05/2020 10:24 AM PDT) + +---------+ + + + | Component | Value | Ref Range | Performed | Pathologist | | | | | At | Signature | + +---------+ + + + | Na | 146 (H) | 136 - 145 | [facility] | | | | | mmol/L | [facility] | | | | | | MEDICAL | | | | | | CENTER - | | | | | | LABORATORY | | + +---------+ + + + + + | Specimen | + + | Blood | + + + + + + + | Performing | Address | City/State/Zipcode | Phone Number | | Organization | | | | + + + + + | [facility] | [address] | [place] | [phone] | | [facility] | | [address] | | | - LABORATORY | | | | + + + + + Hemoglobin and Hematocrit (02/05/2020 10:24 AM PDT) + + + + + + | Component | Value | Ref Range | Performed | Pathologist | | | | | At | Signature | + + + + + + | Hematocrit | 25.4 (L) | 34.0 - 47.0 % | [facility] | | | | | | [facility] | | | | | | MEDICAL | | | | | | CENTER - | | | | | | LABORATORY | | + + + + + + | Hemoglobin | 7.8 (L) | 11.5 - 16.0 | [facility] | | | | | g/dL | [facility] | | | | | | MEDICAL | | | | | | CENTER - | | | | | | LABORATORY | | + + + + + + + + | Specimen | + + | Blood | + + + + + + + | Performing | Address | City/State/Zipcode | Phone Number | | Organization | | | | + + + + + | [facility] | [address] | [place] | [phone] | | [facility] | | [address] | | | - LABORATORY | | | | + + + + + Vitamin B-12 (02/05/2020 6:28 AM PDT) + + + + + + | Component | Value | Ref Range | Performed | Pathologist | | | | | At | Signature | + + + + + + | VITAMIN | 976 (H)Comment: | 156 - 672 pg/mL | [facility] | | | B-12 | DEFICIENT: | | [facility] | | | | <145 | | MEDICAL | | | | pg/mLINDETERMINATE: | | CENTER - | | | | 145-180 pg/mL | | LABORATORY | | + + + + + + + + | Specimen | + + | Blood | + + + + + + + | Performing | Address | City/State/Zipcode | Phone Number | | Organization | | | | + + + + + | [facility] | [address] | [place] | [phone] | | [facility] | | [address] | | | - LABORATORY | | | | + + + + + Ferritin (02/05/2020 6:28 AM PDT) + +-------+ + + + | Component | Value | Ref Range | Performed | Pathologist | | | | | At | Signature | + +-------+ + + + | FERRITIN | 186 | 7 - 271 ng/mL | [facility] | | | | | | [facility] | | | | | | MEDICAL | | | | | | CENTER - | | | | | | LABORATORY | | + +-------+ + + + + + | Specimen | + + | Blood | + + + + + + + | Performing | Address | City/State/Zipcode | Phone Number | | Organization | | | | + + + + + | [facility] | [address] | [place], [place] | [phone] | | [facility] | | [address] | | | - LABORATORY | | | | + + + + + Iron and Transferrin (02/05/2020 6:28 AM PDT) + + + + + + | Component | Value | Ref Range | Performed | Pathologist | | | | | At | Signature | + + + + + + | Iron | 23 (L) | 50 - 170 ug/dL | [facility] | | | | | | [facility] | | | | | | MEDICAL | | | | | | CENTER - | | | | | | LABORATORY | | + + + + + + | TRANSFERRIN | 77.0 (L) | 250.0 - 380.0 | [facility] | | | | | mg/dL | [facility] | | | | | | MEDICAL | | | | | | CENTER - | | | | | | LABORATORY | | + + + + + + | TIBC | 108 (L) | 235 - 425 ug/dL | [facility] | | | | | | [facility] | | | | | | MEDICAL | | | | | | CENTER - | | | | | | LABORATORY | | + + + + + + | % | 21.3 | 15.0 - 50.0 % | [facility] | | | SATURATION | | | [facility] | | | | | | MEDICAL | | | | | | CENTER - | | | | | | LABORATORY | | + + + + + + + + | Specimen | + + | Blood | + + + + + + + | Performing | Address | City/State/[facility] | Phone Number | | Organization | | | | + + + + + | [facility] | [address] | [place] | [phone] | | [facility] | | [address] | | | - LABORATORY | | | | + + + + + Basic Metabolic Panel (02/05/2020 6:28 AM PDT) + + + + + + | Component | Value | Ref Range | Performed | Pathologist | | | | | At | Signature | + + + + + + | Na | 146 (H) | 136 - 145 | [facility] | | | | | mmol/L | [facility] | | | | | | MEDICAL | | | | | | CENTER - | | | | | | LABORATORY | | + + + + + + | K | 3.4 | 3.4 - 5.1 | [facility] | | | | | mmol/L | [facility] | | | | | | MEDICAL | | | | | | CENTER - | | | | | | LABORATORY | | + + + + + + | Cl | 111 (H) | 98 - 107 mmol/L | [facility] | | | | | | [facility] | | | | | | MEDICAL | | | | | | CENTER - | | | | | | LABORATORY | | + + + + + + | CO2 | 32 (H) | 20 - 31 mmol/L | [facility] | | | | | | [facility] | | | | | | MEDICAL | | | | | | CENTER - | | | | | | LABORATORY | | + + + + + + | Anion Gap | 3 | 3 - 16 mmol/L | [facility] | | | | | | [facility] | | | | | | MEDICAL | | | | | | CENTER - | | | | | | LABORATORY | | + + + + + + | Glucose | 88 | 60 - 106 mg/dL | [facility] | | | | | | [facility] | | | | | | MEDICAL | | | | | | CENTER - | | | | | | LABORATORY | | + + + + + + | BUN | 22 | 9 - 23 mg/dL | [facility] | | | | | | [facility] | | | | | | MEDICAL | | | | | | CENTER - | | | | | | LABORATORY | | + + + + + + | Creatinine | 0.63 | 0.55 - 1.02 | [facility] | | | | | mg/dL | [facility] | | | | | | MEDICAL | | | | | | CENTER - | | | | | | LABORATORY | | + + + + + + | eGFR if not | >60Comment: GLOMERULAR | >=60 | [facility] | | | | FILTRATION | mL/min/1.73m2 | [facility] | | | HUNGARIAN | RATE,ESTIMATED | | MEDICAL | | | | mL/min/1.16o8Tinx than | | CENTER - | | | | 60 Chronic kidney | | LABORATORY | | | | disease,if found over a | | | | | | 3-month period.Less than | | | | | | 15 Kidney failureFor | | | | | | | | | | | | Americans,multiply the | | | | | | calculated GFR by 1.21. | | | | | | | | | | + + + + + + | Calcium | 7.4 (L) | 8.7 - 10.4 | [facility] | | | | | mg/dL | [facility] | | | | | | MEDICAL | | | | | | CENTER - | | | | | | LABORATORY | | + + + + + + | BUN/Creatin | 34.9 | | [facility] | | | ine Ratio | | | [facility] | | | | | | MEDICAL | | | | | | CENTER - | | | | | | LABORATORY | | + + + + + + + + | Specimen | + + | Blood | + + + + + + + | Performing | Address | City/State/Zipcode | Phone Number | | Organization | | | | + + + + + | [facility] | [address] | [place] | [phone] | | [facility] | | [address] | | | - LABORATORY | | | | + + + + + Magnesium (02/05/2020 6:28 AM PDT) + +-------+ + + + | Component | Value | Ref Range | Performed | Pathologist | | | | | At | Signature | + +-------+ + + + | Magnesium | 1.8 | 1.6 - 2.6 mg/dL | [facility] | | | | | | [facility] | | | | | | MEDICAL | | | | | | CENTER - | | | | | | LABORATORY | | + +-------+ + + + + + | Specimen | + + | Blood | + + + + + + + | Performing | Address | City/State/Zipcode | Phone Number | | Organization | | | | + + + + + | [facility] | [address] | [place] | [phone] | | [facility] | | [address] | | | - LABORATORY | | | | + + + + + CBC with Differential (02/05/2020 6:28 AM PDT) + + + + + + | Component | Value | Ref Range | Performed | Pathologist | | | | | At | Signature | + + + + + + | WBC | 11.5 (H) | 4.0 - 11.0 K/uL | [facility] | | | | | | [facility] | | | | | | [facility] | | | | | | [facility] - | | | | | | LABORATORY | | + + + + + + | RBC | 2.61 (L) | 3.70 - 5.20 | [facility] | | | | | M/uL | [facility] | | | | | | MEDICAL | | | | | | CENTER - | | | | | | LABORATORY | | + + + + + + | Hemoglobin | 7.5 (LL)Comment: | 11.5 - 16.0 | [facility] | | | | Critical Result called | g/dL | [facility] | | | | to and read back by | | MEDICAL | | | | Kiara Chung RN on | | CENTER - | | | | 02/05/2020 at 6:43 AM by | | LABORATORY | | | | Don Wood. | | | | + + + + + + | Hematocrit | 24.9 (L) | 34.0 - 47.0 % | [facility] | | | | | | [facility] | | | | | | [facility] | | | | | | [facility]ENTER - | | | | | | LABORATORY | | + + + + + + | MCV | 95.4 | 83.0 - 101.0 fL | [facility] | | | | | | [facility] | | | | | | [facility] | | | | | | C[facility] - | | | | | | LABORATORY | | + + + + + + | MCH | 28.7 | 28.0 - 35.0 pg | [facility] | | | | | | [facility] | | | | | | [facility] | | | | | | [facility] - | | | | | | LABORATORY | | + + + + + + | MCHC | 30.1 (L) | 32.0 - 36.0 | [facility] | | | | | g/dL | [facility] | | | | | | [facility]ICAL | | | | | | CENTER - | | | | | | LABORATORY | | + + + + + + | RDW-CV | 15.8 (H) | <15.0 % | [facility] | | | | | | [facility] | | | | | | [facility] | | | | | | [facility] - | | | | | | LABORATORY | | + + + + + + | RDW-SD | 55.2 (H) | 35.1 - 46.3 fL | [facility] | | | | | | [facility] | | | | | | [facility] | | | | | | [facility] - | | | | | | LABORATORY | | + + + + + + | Platelet | 116 (L) | 140 - 440 K/uL | [facility] | | | Count | | | [facility] | | | | | | [facility] | | | | | | CENTER - | | | | | | LABORATORY | | + + + + + + | MPV | 10.8 | 6.5 - 12.4 fL | [facility] | | | | | | [facility] | | | | | | [facility] | | | | | | [facility] - | | | | | | LABORATORY | | + + + + + + | % | 80.9 | 45.0 - 82.0 % | [facility] | | | Neutrophils | | | [facility] | | | | | | MEDICAL | | | | | | CENTER - | | | | | | LABORATORY | | + + + + + + | % | 10.0 (L) | 20.0 - 45.0 % | [facility] | | | Lymphocytes | | | [facility] | | | | | | MEDICAL | | | | | | CENTER - | | | | | | LABORATORY | | + + + + + + | % Monocytes | 7.9 | 4.0 - 12.0 % | [facility] | | | | | | [facility] | | | | | | [facility] | | | | | | [facility]ENTER - | | | | | | LABORATORY | | + + + + + + | % | 0.7 | 0.0 - 5.0 % | [facility] | | | Eosinophils | | | [facility] | | | | | | MEDICAL | | | | | | CENTER - | | | | | | LABORATORY | | + + + + + + | % Basophils | 0.1 | 0.0 - 1.0 % | [facility] | | | | | | [facility] | | | | | | [facility]ICAL | | | | | | CENTER - | | | | | | LABORATORY | | + + + + + + | % Immature | 0.4 | 0.0 - 0.4 % | [facility] | | | Granulocyte | | | [facility] | | | s | | | MEDICAL | | | | | | CENTER - | | | | | | LABORATORY | | + + + + + + | Absolute | 9.27 (H) | 1.80 - 8.50 | [facility] | | | Neutrophils | | K/uL | [facility] | | | | | | MEDICAL | | | | | | CENTER - | | | | | | LABORATORY | | + + + + + + | Absolute | 1.15 | 0.60 - 3.20 | [facility] | | | Lymphocytes | | K/uL | [facility] | | | | | | [facility] | | | | | | CENTER - | | | | | | LABORATORY | | + + + + + + | Absolute | 0.90 | 0.00 - 1.00 | [facility] | | | Monocytes | | K/uL | [facility] | | | | | | [facility] | | | | | | CENTER - | | | | | | LABORATORY | | + + + + + + | Absolute | 0.08 | 0.00 - 0.40 | [facility] | | | Eosinophils | | K/uL | [facility] | | | | | | [facility] | | | | | | CENTER - | | | | | | LABORATORY | | + + + + + + | Absolute | 0.01 | 0.00 - 0.10 | [facility] | | | Basophils | | K/uL | [facility] | | | | | | MEDICAL | | | | | | CENTER - | | | | | | LABORATORY | | + + + + + + | Absolute | 0.05 (H) | 0.00 - 0.03 | [facility] | | | Immature | | K/uL | [facility] | | | [facility] | | | MEDICAL | | | s | | | CENTER - | | | | | | LABORATORY | | + + + + + + | % nRBC | 0 | 0 - 2 per 100 | [facility] | | | | | WBCs | [facility] | | | | | | MEDICAL | | | | | | CENTER - | | | | | | LABORATORY | | + + + + + + | Absolute | 0.00 | 0.00 - 0.01 | [facility] | | | nRBC | | K/uL | [facility] | | | | | | MEDICAL | | | | | | CENTER - | | | | | | LABORATORY | | + + + + + + + + | Specimen | + + | Blood | + + + + + + + | Performing | Address | City/State/Zipcode | Phone Number | | Organization | | | | + + + + + | [facility] | [address] | [place] | [phone] | | [facility] | | [address] | | | - LABORATORY | | | | + + + + + Sodium (02/04/2020 12:03 PM PDT) + +---------+ + + + | Component | Value | Ref Range | Performed | Pathologist | | | | | At | Signature | + +---------+ + + + | Na | 149 (H) | 136 - 145 | [facility] | | | | | mmol/L | [facility] | | | | | | MEDICAL | | | | | | CENTER - | | | | | | LABORATORY | | + +---------+ + + + + + | Specimen | + + | Blood | + + + + + + + | Performing | Address | City/State/Zipcode | Phone Number | | Organization | | | | + + + + + | [facility] | [address] | [place] | [phone] | | [facility] | | [address] | | | - LABORATORY | | | | + + + + + Magnesium (02/04/2020 6:29 AM PDT) + +-------+ + + + | Component | Value | Ref Range | Performed | Pathologist | | | | | At | Signature | + +-------+ + + + | Magnesium | 1.9 | 1.6 - 2.6 mg/dL | [facility] | | | | | | [facility] | | | | | | MEDICAL | | | | | | CENTER - | | | | | | LABORATORY | | + +-------+ + + + + + | Specimen | + + | Blood | + + + + + + + | Performing | Address | City/State/Zipcode | Phone Number | | Organization | | | | + + + + + | [facility] | [address] | [place], [place] | [phone] | | [facility] | | [address] | | | - LABORATORY | | | | + + + + + Basic Metabolic Panel (02/04/2020 6:29 AM PDT) + + + + + + | Component | Value | Ref Range | Performed | Pathologist | | | | | At | Signature | + + + + + + | Na | 151 (H) | 136 - 145 | [facility] | | | | | mmol/L | [facility] | | | | | | MEDICAL | | | | | | CENTER - | | | | | | LABORATORY | | + + + + + + | K | 3.6 | 3.4 - 5.1 | [facility] | | | | | mmol/L | [facility] | | | | | | MEDICAL | | | | | | CENTER - | | | | | | LABORATORY | | + + + + + + | Cl | 115 (H) | 98 - 107 mmol/L | [facility] | | | | | | [facility] | | | | | | MEDICAL | | | | | | CENTER - | | | | | | LABORATORY | | + + + + + + | CO2 | 31 | 20 - 31 mmol/L | [facility] | | | | | | [facility] | | | | | | MEDICAL | | | | | | CENTER - | | | | | | LABORATORY | | + + + + + + | Anion Gap | 5 | 3 - 16 mmol/L | [facility] | | | | | | [facility] | | | | | | MEDICAL | | | | | | CENTER - | | | | | | LABORATORY | | + + + + + + | Glucose | 84 | 60 - 106 mg/dL | [facility] | | | | | | [facility] | | | | | | MEDICAL | | | | | | CENTER - | | | | | | LABORATORY | | + + + + + + | BUN | 23 | 9 - 23 mg/dL | [facility] | | | | | | [facility] | | | | | | MEDICAL | | | | | | CENTER - | | | | | | LABORATORY | | + + + + + + | Creatinine | 0.73 | 0.55 - 1.02 | [facility] | | | | | mg/dL | [facility] | | | | | | MEDICAL | | | | | | CENTER - | | | | | | LABORATORY | | + + + + + + | eGFR if not | >60Comment: GLOMERULAR | >=60 | [facility] | | | | FILTRATION | mL/min/1.73m2 | [facility] | | | [facility] | RATE,ESTIMATED | | MEDICAL | | | | mL/min/1.12y5Bktz than | | CENTER - | | | | 60 Chronic kidney | | LABORATORY | | | | disease,if found over a | | | | | | 3-month period.Less than | | | | | | 15 Kidney failureFor | | | | | | | | | | | | Americans,multiply the | | | | | | calculated GFR by 1.21. | | | | | | | | | | + + + + + + | Calcium | 7.9 (L) | 8.7 - 10.4 | [facility] | | | | | mg/dL | [facility] | | | | | | MEDICAL | | | | | | CENTER - | | | | | | LABORATORY | | + + + + + + | BUN/Creatin | 31.5 | | [facility] | | | ine Ratio | | | [facility] | | | | | | [facility]ICAL | | | | | | CENTER - | | | | | | LABORATORY | | + + + + + + + + | Specimen | + + | Blood | + + + + + + + | Performing | Address | City/State/Zipcode | Phone Number | | Organization | | | | + + + + + | [facility] | [address] | [place] | [phone] | | [facility] | | [address] | | | - LABORATORY | | | | + + + + + CBC with Differential (02/04/2020 6:29 AM PDT) + + + + + + | Component | Value | Ref Range | Performed | Pathologist | | | | | At | Signature | + + + + + + | WBC | 14.1 (H) | 4.0 - 11.0 K/uL | [facility] | | | | | | [facility] | | | | | | MEDICAL | | | | | | CENTER - | | | | | | LABORATORY | | + + + + + + | RBC | 2.76 (L) | 3.70 - 5.20 | [facility] | | | | | M/uL | [facility] | | | | | | MEDICAL | | | | | | CENTER - | | | | | | LABORATORY | | + + + + + + | Hemoglobin | 7.9 (L) | 11.5 - 16.0 | [facility] | | | | | g/dL | [facility] | | | | | | MEDICAL | | | | | | CENTER - | | | | | | LABORATORY | | + + + + + + | Hematocrit | 25.9 (L) | 34.0 - 47.0 % | [facility] | | | | | | [facility] | | | | | | MEDICAL | | | | | | CENTER - | | | | | | LABORATORY | | + + + + + + | MCV | 93.8 | 83.0 - 101.0 fL | [facility] | | | | | | [facility] | | | | | | MEDICAL | | | | | | CENTER - | | | | | | LABORATORY | | + + + + + + | MCH | 28.6 | 28.0 - 35.0 pg | [facility] | | | | | | [facility] | | | | | | MEDICAL | | | | | | CENTER - | | | | | | LABORATORY | | + + + + + + | MCHC | 30.5 (L) | 32.0 - 36.0 | [facility] | | | | | g/dL | [facility] | | | | | | MEDICAL | | | | | | CENTER - | | | | | | LABORATORY | | + + + + + + | RDW-CV | 15.9 (H) | <15.0 % | [facility] | | | | | | [facility] | | | | | | MEDICAL | | | | | | CENTER - | | | | | | LABORATORY | | + + + + + + | RDW-SD | 54.4 (H) | 35.1 - 46.3 fL | [facility] | | | | | | [facility] | | | | | | MEDICAL | | | | | | CENTER - | | | | | | LABORATORY | | + + + + + + | Platelet | 139 (L) | 140 - 440 K/uL | [facility] | | | Count | | | [facility] | | | | | | MEDICAL | | | | | | CENTER - | | | | | | LABORATORY | | + + + + + + | MPV | 11.1 | 6.5 - 12.4 fL | [facility] | | | | | | [facility] | | | | | | MEDICAL | | | | | | CENTER - | | | | | | LABORATORY | | + + + + + + | % | 84.2 (H) | 45.0 - 82.0 % | [facility] | | | Neutrophils | | | [facility] | | | | | | MEDICAL | | | | | | CENTER - | | | | | | LABORATORY | | + + + + + + | % | 9.1 (L) | 20.0 - 45.0 % | [facility] | | | Lymphocytes | | | [facility] | | | | | | MEDICAL | | | | | | CENTER - | | | | | | LABORATORY | | + + + + + + | % Monocytes | 5.6 | 4.0 - 12.0 % | [facility] | | | | | | [facility] | | | | | | MEDICAL | | | | | | CENTER - | | | | | | LABORATORY | | + + + + + + | % | 0.6 | 0.0 - 5.0 % | [facility] | | | Eosinophils | | | [facility] | | | | | | MEDICAL | | | | | | CENTER - | | | | | | LABORATORY | | + + + + + + | % Basophils | 0.1 | 0.0 - 1.0 % | [facility] | | | | | | [facility] | | | | | | MEDICAL | | | | | | CENTER - | | | | | | LABORATORY | | + + + + + + | % Immature | 0.4 | 0.0 - 0.4 % | [facility] | | | Granulocyte | | | [facility] | | | s | | | MEDICAL | | | | | | CENTER - | | | | | | LABORATORY | | + + + + + + | Absolute | 11.88 (H) | 1.80 - 8.50 | [facility] | | | Neutrophils | | K/uL | [facility] | | | | | | MEDICAL | | | | | | CENTER - | | | | | | LABORATORY | | + + + + + + | Absolute | 1.29 | 0.60 - 3.20 | [facility] | | | Lymphocytes | | K/uL | [facility] | | | | | | MEDICAL | | | | | | CENTER - | | | | | | LABORATORY | | + + + + + + | Absolute | 0.79 | 0.00 - 1.00 | [facility] | | | Monocytes | | K/uL | [facility] | | | | | | MEDICAL | | | | | | CENTER - | | | | | | LABORATORY | | + + + + + + | Absolute | 0.08 | 0.00 - 0.40 | [facility] | | | Eosinophils | | K/uL | [facility] | | | | | | MEDICAL | | | | | | CENTER - | | | | | | LABORATORY | | + + + + + + | Absolute | 0.02 | 0.00 - 0.10 | [facility] | | | Basophils | | K/uL | [facility] | | | | | | MEDICAL | | | | | | CENTER - | | | | | | LABORATORY | | + + + + + + | Absolute | 0.05 (H) | 0.00 - 0.03 | [facility] | | | Immature | | K/uL | [facility] | | | Granulocyte | | | MEDICAL | | | s | | | CENTER - | | | | | | LABORATORY | | + + + + + + | % nRBC | 0 | 0 - 2 per 100 | [facility] | | | | | WBCs | [facility] | | | | | | MEDICAL | | | | | | CENTER - | | | | | | LABORATORY | | + + + + + + | Absolute | 0.00 | 0.00 - 0.01 | [facility] | | | nRBC | | K/uL | [facility] | | | | | | MEDICAL | | | | | | CENTER - | | | | | | LABORATORY | | + + + + + + + + | Specimen | + + | Blood | + + + + + + + | Performing | Address | City/State/Zipcode | Phone Number | | Organization | | | | + + + + + | [facility] | [address] | [place] | [phone] | | [facility] | | [address] | | | - LABORATORY | | | | + + + + + Culture, Anaerobic (02/03/2020 11:13 AM PDT) + + + + + + | Component | Value | Ref Range | Performed | Pathologist | | | | | At | Signature | + + + + + + | Culture | 4+ Bacteroides | | [facility] | | | | fragilisComment: The | | [facility] | | | | drug of choice for | | MEDICAL | | | | Bacteroides species, | | CENTER - | | | | including Bacteroides | | LABORATORY | | | | fragilis, is | | | | | | metronidazole or | | | | | | piperacillin/tazobactam. | | | | | | Alternatives include | | | | | | meropenem. Increasing | | | | | | resistance to | | | | | | clindamycin has been | | | | | | observed. | | | | + + + + + + | Culture | 4+ Propionibacterium | | [facility] | | | | propionicumComment: | | [facility] | | | | Propionibacteria are | | MEDICAL | | | | predictably susceptible | | CENTER - | | | | to penicillins and | | LABORATORY | | | | cephalosporins. | | | | + + + + + + + + | Specimen | + + | Tissue - Entire arch | | of sacral vertebra | | (body structure) | + + + + + + + | Performing | Address | City/State/Zipcode | Phone Number | | Organization | | | | + + + + + | [facility] | [address] | [place] | [phone] | | [facility] | | [address] | | | - LABORATORY | | | | + + + + + Culture, Wound, Smear (02/03/2020 11:13 AM PDT) + + + + + + | Component | Value | Ref Range | Performed | Pathologist | | | | | At | Signature | + + + + + + | Culture | 4+ Staphylococcus | | [facility] | | | | aureus,Methicillin | | [facility] | | | | resistant (MRSA)Comment: | | MEDICAL | | | | *INFECTION PREVENTION | | CENTER - | | | | ALERT - MRSA* CONTACT | | LABORATORY | | | | PRECAUTIONS REQUIRED. | | | | + + + + + + | Gram Stain | No white blood cells | | [facility] | | | Result | (PMNs) seen | | [facility] | | | | | | MEDICAL | | | | | | CENTER - | | | | | | LABORATORY | | + + + + + + | Gram Stain | 1+ Epithelial cells | | [facility] | | | Result | | | [facility] | | | | | | MEDICAL | | | | | | CENTER - | | | | | | LABORATORY | | + + + + + + | Gram Stain | 2+ Gram positive cocci | | [facility] | | | Result | | | [facility] | | | | | | MEDICAL | | | | | | CENTER - | | | | | | LABORATORY | | + + + + + + + + | Specimen | + + | Tissue - Entire arch | | of sacral vertebra | | (body structure) | + + + + +--------+ + | Organism | Antibiotic | Method | Susceptibility | + + +--------+ + | Staphylococcus | Ciprofloxacin | | >=8 ug/mL: | | aureus,Methicillin | | | Resistant | | resistant (MRSA) | | | | + + +--------+ + | Staphylococcus | Clindamycin | | >=4 ug/mL: | | aureus,Methicillin | | | Resistant | | resistant (MRSA) | | | | + + +--------+ + | Staphylococcus | Erythromycin | | >=8 ug/mL: | | aureus,Methicillin | | | Resistant | | resistant (MRSA) | | | | + + +--------+ + | Staphylococcus | Gentamicin | | <=0.5 ug/mL: | | aureus,Methicillin | | | Sensitive | | resistant (MRSA) | | | | + + +--------+ + | Staphylococcus | Levofloxacin | | >=8 ug/mL: | | aureus,Methicillin | | | Resistant | | resistant (MRSA) | | | | + + +--------+ + | Staphylococcus | Linezolid | | 2 ug/mL: Sensitive | | aureus,Methicillin | | | | | resistant (MRSA) | | | | + + +--------+ + | Staphylococcus | Minocycline | | <=0.5 ug/mL: | | aureus,Methicillin | | | Sensitive | | resistant (MRSA) | | | | + + +--------+ + | Staphylococcus | Moxifloxacin | | >=8 ug/mL: | | aureus,Methicillin | | | Resistant | | resistant (MRSA) | | | | + + +--------+ + | Staphylococcus | Oxacillin | | >=4 ug/mL: | | aureus,Methicillin | | | Resistant | | resistant (MRSA) | | | | + + +--------+ + | Staphylococcus | Penicillin G | | >=0.5 ug/mL: | | aureus,Methicillin | | | Resistant | | resistant (MRSA) | | | | + + +--------+ + | Staphylococcus | Rifampin | | <=0.5 ug/mL: | | aureus,Methicillin | | | Sensitive | | resistant (MRSA) | | | | + + +--------+ + +---+ + | | Comment: Rifampin | | | should not be used | | | alone for | | | chemotherapy. | +---+ + + + +---+ + | Staphylococcus | Tetracycline | | <=1 ug/mL: | | aureus,Methicillin | | | Sensitive | | resistant (MRSA) | | | | + + +---+ + | Staphylococcus | Tigecycline | | <=0.12 ug/mL: | | aureus,Methicillin | | | Sensitive | | resistant (MRSA) | | | | + + +---+ + | Staphylococcus | Trimethoprim + | | <=10 ug/mL: | | aureus,Methicillin | Sulfamethoxazole | | Sensitive | | resistant (MRSA) | | | | + + +---+ + | Staphylococcus | Vancomycin | | 1 ug/mL: Sensitive | | aureus,Methicillin | | | | | resistant (MRSA) | | | | + + +---+ + + + + + + | Performing | Address | City/State/Zipcode | Phone Number | | Organization | | | | + + + + + | [facility] | 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 | | | Dictated and Signed by: Patrick Rodriguez MD Electronically signed: | | | 02/03/2020 10:50 AM | | + + + + + + | Narrative | Performed At | + + + | [place] ESOPHAGRAM COMPLETE 02/03/2020 8:56 AM HISTORY: Esophageal | [facility] | | dysmotility. COMPARISON: Multiple priors. PROTOCOL: The | | | patient was initially administered thin oral barium. Fluoroscopic | | | images of the esophagus and stomach region were obtained. | | | FINDINGS: This is a limited evaluation as the patient cannot bear | | | weight and is immobile. There is spasm of the distal esophagus in | | | the region of the lower esophageal sphincter with moderate | | | distention. Mild diffuse tertiary contraction are noted throughout | | | the esophagus. No significant emptying into the stomach is visualized | | | after about 4 minutes of imaging. These findings have the appearance | | | of achalasia. 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 | | + + + + + | Procedure Note | + + | Kobe, Rad Results In - 02/03/2020 10:53 AM PDT [place] ESOPHAGRAM COMPLETE 02/03/2020 8:56 | | AMHISTORY: Esophageal dysmotility.COMPARISON: Multiple priors.PROTOCOL: The patient was | | initially administered thin oral barium. Fluoroscopicimages of the esophagus and stomach | | region were obtained.FINDINGS:This is a limited evaluation as the patient cannot bear | | weight and is immobile.There is spasm of the distal esophagus in the region of the lower | | esophagealsphincter with moderate distention. Mild diffuse tertiary contraction are | | notedthroughout the esophagus. No significant emptying into the stomach is | | visualizedafter about 4 minutes of imaging. These findings have the appearance | | ofachalasia. 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 Mild diffuse tertiary contraction are noted | |throughout the esophagus. No significant emptying into the stomach is visualized | |after about 4 minutes of imaging. These findings have the appearance of | |achalasia. 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 | | | |Dictated and Signed by: Patrick Rodriguez MD | | Electronically signed: 02/03/2020 10:50 AM | + + + +---------+ + + | Performing | Address | City/State/[facility] | Phone Number | | Organization | | | | + +---------+ + + | [facility] | | | | + +---------+ + + Magnesium (02/03/2020 6:18 AM PDT) + +-------+ + + + | Component | Value | Ref Range | Performed | Pathologist | | | | | At | Signature | + +-------+ + + + | Magnesium | 1.8 | 1.6 - 2.6 mg/dL | [facility] | | | | | | [facility] | | | | | | MEDICAL | | | | | | CENTER - | | | | | | LABORATORY | | + +-------+ + + + + + | Specimen | + + | Blood | + + + + + + + | Performing | Address | City/State/Zipcode | Phone Number | | Organization | | | | + + + + + | [facility] | [address] | [place] | [phone] | | [facility] | | [address] | | | - LABORATORY | | | | + + + + + Basic Metabolic Panel (02/03/2020 6:18 AM PDT) + + + + + + | Component | Value | Ref Range | Performed | Pathologist | | | | | At | Signature | + + + + + + | Na | 146 (H) | 136 - 145 | [facility] | | | | | mmol/L | [facility] | | | | | | MEDICAL | | | | | | CENTER - | | | | | | LABORATORY | | + + + + + + | K | 3.6 | 3.4 - 5.1 | [facility] | | | | | mmol/L | [facility] | | | | | | MEDICAL | | | | | | CENTER - | | | | | | LABORATORY | | + + + + + + | Cl | 114 (H) | 98 - 107 mmol/L | [facility] | | | | | | [facility] | | | | | | MEDICAL | | | | | | CENTER - | | | | | | LABORATORY | | + + + + + + | CO2 | 29 | 20 - 31 mmol/L | [facility] | | | | | | [facility] | | | | | | MEDICAL | | | | | | CENTER - | | | | | | LABORATORY | | + + + + + + | Anion Gap | 3 | 3 - 16 mmol/L | [facility] | | | | | | [facility] | | | | | | MEDICAL | | | | | | CENTER - | | | | | | LABORATORY | | + + + + + + | Glucose | 86 | 60 - 106 mg/dL | [facility] | | | | | | [facility] | | | | | | MEDICAL | | | | | | CENTER - | | | | | | LABORATORY | | + + + + + + | BUN | 28 (H) | 9 - 23 mg/dL | [facility] | | | | | | [facility] | | | | | | MEDICAL | | | | | | CENTER - | | | | | | LABORATORY | | + + + + + + | Creatinine | 0.89 | 0.55 - 1.02 | [facility] | | | | | mg/dL | [facility] | | | | | | MEDICAL | | | | | | CENTER - | | | | | | LABORATORY | | + + + + + + | eGFR if not | 60Comment: GLOMERULAR | >=60 | [facility] | | | | FILTRATION | mL/min/1.73m2 | [facility] | | | [facility]UNG[facility]IAN | RATE,ESTIMATED | | MEDICAL | | | | mL/min/1.41b8Kinm than | | CENTER - | | | | 60 Chronic kidney | | LABORATORY | | | | disease,if found over a | | | | | | 3-month period.Less than | | | | | | 15 Kidney failureFor | | | | | | | | | | | | Americans,multiply the | | | | | | calculated GFR by 1.21. | | | | | | | | | | + + + + + + | Calcium | 7.6 (L) | 8.7 - 10.4 | [facility] | | | | | mg/dL | [facility] | | | | | | MEDICAL | | | | | | CENTER - | | | | | | LABORATORY | | + + + + + + | BUN/Creatin | 31.5 | | [facility] | | | ine Ratio | | | [facility] | | | | | | MEDICAL | | | | | | CENTER - | | | | | | LABORATORY | | + + + + + + + + | Specimen | + + | Blood | + + + + + + + | Performing | Address | City/State/Zipcode | Phone Number | | Organization | | | | + + + + + | [facility] | [address] | [place] | [phone] | | [facility] | | [address] | | | - LABORATORY | | | | + + + + + CBC with Differential (02/03/2020 6:18 AM PDT) + + + + + + | Component | Value | Ref Range | Performed | Pathologist | | | | | At | Signature | + + + + + + | WBC | 13.4 (H) | 4.0 - 11.0 K/uL | [facility] | | | | | | [facility] | | | | | | MEDICAL | | | | | | CENTER - | | | | | | LABORATORY | | + + + + + + | RBC | 2.71 (L) | 3.70 - 5.20 | [facility] | | | | | M/uL | [facility] | | | | | | MEDICAL | | | | | | CENTER - | | | | | | LABORATORY | | + + + + + + | Hemoglobin | 7.8 (L) | 11.5 - 16.0 | [facility] | | | | | g/dL | [facility] | | | | | | MEDICAL | | | | | | CENTER - | | | | | | LABORATORY | | + + + + + + | Hematocrit | 25.4 (L) | 34.0 - 47.0 % | [facility] | | | | | | [facility] | | | | | | MEDICAL | | | | | | CENTER - | | | | | | LABORATORY | | + + + + + + | MCV | 93.7 | 83.0 - 101.0 fL | [facility] | | | | | | [facility] | | | | | | MEDICAL | | | | | | CENTER - | | | | | | LABORATORY | | + + + + + + | MCH | 28.8 | 28.0 - 35.0 pg | [facility] | | | | | | [facility] | | | | | | MEDICAL | | | | | | CENTER - | | | | | | LABORATORY | | + + + + + + | MCHC | 30.7 (L) | 32.0 - 36.0 | [facility] | | | | | g/dL | [facility] | | | | | | MEDICAL | | | | | | CENTER - | | | | | | LABORATORY | | + + + + + + | RDW-CV | 15.8 (H) | <15.0 % | [facility] | | | | | | [facility] | | | | | | MEDICAL | | | | | | CENTER - | | | | | | LABORATORY | | + + + + + + | RDW-SD | 53.5 (H) | 35.1 - 46.3 fL | [facility] | | | | | | [facility] | | | | | | MEDICAL | | | | | | CENTER - | | | | | | LABORATORY | | + + + + + + | Platelet | 139 (L) | 140 - 440 K/uL | [facility] | | | Count | | | [facility] | | | | | | MEDICAL | | | | | | CENTER - | | | | | | LABORATORY | | + + + + + + | MPV | 11.0 | 6.5 - 12.4 fL | [facility] | | | | | | [facility] | | | | | | MEDICAL | | | | | | CENTER - | | | | | | LABORATORY | | + + + + + + | % | 85.3 (H) | 45.0 - 82.0 % | [facility] | | | Neutrophils | | | [facility] | | | | | | MEDICAL | | | | | | CENTER - | | | | | | LABORATORY | | + + + + + + | % | 8.4 (L) | 20.0 - 45.0 % | [facility] | | | Lymphocytes | | | [facility] | | | | | | [facility] | | | | | | CENTER - | | | | | | LABORATORY | | + + + + + + | % Monocytes | 5.1 | 4.0 - 12.0 % | [facility] | | | | | | [facility] | | | | | | [facility] | | | | | | [facility] - | | | | | | LABORATORY | | + + + + + + | % | 0.4 | 0.0 - 5.0 % | [facility] | | | Eosinophils | | | [facility] | | | | | | [facility] | | | | | | CENTER - | | | | | | LABORATORY | | + + + + + + | % Basophils | 0.1 | 0.0 - 1.0 % | [facility] | | | | | | [facility] | | | | | | [facility] | | | | | | [facility] - | | | | | | LABORATORY | | + + + + + + | % Immature | 0.7 (H)Comment: | 0.0 - 0.4 % | [facility] | | | Granulocyte | Preliminary studies have | | [facility] | | | s | indicated the IG% | | MEDICAL | | | | and/or IG# show promise | | CENTER - | | | | as an early indicator | | LABORATORY | | | | for infection. | | | | + + + + + + | Absolute | 11.43 (H) | 1.80 - 8.50 | [facility] | | | Neutrophils | | K/uL | [facility] | | | | | | [facility] | | | | | | CENTER - | | | | | | LABORATORY | | + + + + + + | Absolute | 1.13 | 0.60 - 3.20 | [facility] | | | Lymphocytes | | K/uL | [facility] | | | | | | [facility] | | | | | | CENTER - | | | | | | LABORATORY | | + + + + + + | Absolute | 0.68 | 0.00 - 1.00 | [facility] | | | Monocytes | | K/uL | [facility] | | | | | | [facility] | | | | | | CENTER - | | | | | | LABORATORY | | + + + + + + | Absolute | 0.06 | 0.00 - 0.40 | [facility] | | | Eosinophils | | K/uL | [facility] | | | | | | [facility] | | | | | | CENTER - | | | | | | LABORATORY | | + + + + + + | Absolute | 0.02 | 0.00 - 0.10 | [facility] | | | Basophils | | K/uL | [facility] | | | | | | [facility] | | | | | | CENTER - | | | | | | LABORATORY | | + + + + + + | Absolute | 0.09 (H) | 0.00 - 0.03 | [facility] | | | Immature | | K/uL | [facility] | | | Granulocyte | | | MEDICAL | | | s | | | CENTER - | | | | | | LABORATORY | | + + + + + + | % nRBC | 0 | 0 - 2 per 100 | [facility] | | | | | WBCs | [facility] | | | | | | [facility]ICAL | | | | | | CENTER - | | | | | | LABORATORY | | + + + + + + | Absolute | 0.00 | 0.00 - 0.01 | [facility] | | | nRBC | | K/uL | [facility] | | | | | | [facility] | | | | | | C[facility] - | | | | | | LABORATORY | | + + + + + + + + | Specimen | + + | Blood | + + + + + + + | Performing | Address | City/State/Zipcode | Phone Number | | Organization | | | | + + + + + | [facility] | [address] | [place] | [phone] | | [facility] | | [id number] | | | - LABORATORY | | | | + + + + + Sodium (02/02/2020 12:22 PM PDT) + +---------+ + + + | Component | Value | Ref Range | Performed | Pathologist | | | | | At | Signature | + +---------+ + + + | Na | 146 (H) | 136 - 145 | [facility] | | | | | mmol/L | [facility] | | | | | | [facility] | | | | | | C[facility] - | | | | | | LABORATORY | | + +---------+ + + + + + | Specimen | + + | Blood | + + + + + + + | Performing | Address | City/State/Zipcode | Phone Number | | Organization | | | | + + + + + | [facility] | [address] | [place] | [phone] | | [facility] | | [address] | | | - LABORATORY | | | | + + + + + FL Video Swallow w Speech (02/02/2020 12:07 PM PDT) + + | Specimen | + + | | + + + + + | Impressions | Performed At | + + + | FINDINGS/IMPRESSION: Oral phase characterized by interlabial | [facility] | | escape, escape to floor of mouth, slow prolonged chewing, residue | | | collection on oral structures. Pharyngeal phase of swallow | | | characterized by swallow initiation at posterior surface of | | | epiglottis, diminished pharyngeal stripping wave, base of tongue | | | weakness, residue collection on pharyngeal structures. Screening of | | | esophagus indicated significant stasis of bolus mid-lower (near LES) | | | esophagus?and retrograde flow below level of UES suggesting presence | | | of esophageal dysphagia. Consider referral to GI for further testing | | | of esophageal function to determine type/severity and management as | | | indicated. Overall mild oropharyngeal dysphagia. Airway protection | | | sufficient. Please see the speech pathologist report for further | | | information. Dictated and Signed by: Patrick Rodriguez MD | | | Electronically signed: 02/02/2020 2:05 PM | | + + + + + + | Narrative | Performed At | + + + | FL VIDEO SWALLOW W SPEECH 02/02/2020 11:12 AM HISTORY: Determine | [facility] | | severity and type of dysphagia. COMPARISON: None. PROTOCOL: | | | The patient was administered various compounds coated with barium by | | | the speech pathologist. Fluoroscopic images were acquired. | | + + + + + | Procedure Note | + + | Kobe, Rad Results In - 02/02/2020 2:08 PM PDT FL VIDEO SWALLOW W SPEECH 02/02/2020 | | 11:12 AMHISTORY: Determine severity and type of dysphagia.COMPARISON: None.PROTOCOL: The | | patient was administered various compounds coated with barium bythe speech pathologist. | | Fluoroscopic images were acquired. IMPRESSION: FINDINGS/IMPRESSION:Oral phase | | characterized by interlabial escape, escape to floor of mouth, slowprolonged chewing, | | residue collection on oral structures. Pharyngeal phase ofswallow characterized by | | swallow initiation at posterior surface of epiglottis,diminished pharyngeal stripping | | wave, base of tongue weakness, residuecollection on pharyngeal structures. Screening of | | esophagus indicatedsignificant stasis of bolus mid-lower (near LES) esophagus?and | | retrograde flowbelow level of UES suggesting presence of esophageal dysphagia. | | Considerreferral to GI for further testing of esophageal function to | | determinetype/severity and management as indicated. Overall mild oropharyngeal | | dysphagia.Airway protection sufficient. Please see the speech pathologist report for | | further information.Dictated and Signed by: Patrick Rodriguez MD Electronically signed: | | 02/02/2020 2:05 PM | |collection on pharyngeal structures. Screening of esophagus indicated | |significant stasis of bolus mid-lower (near LES) esophagus?and retrograde flow | |below level of UES suggesting presence of esophageal dysphagia. Consider | |referral to GI for further testing of esophageal function to determine | |type/severity and management as indicated. Overall mild oropharyngeal dysphagia. | |Airway protection sufficient. | | | |Please see the speech pathologist report for further information. | | | |Dictated and Signed by: Patrick Rodriguez MD | | Electronically signed: 02/02/2020 2:05 PM | + + + +---------+ + + | Performing | Address | City/State/Zipcode | Phone Number | | Organization | | | | + +---------+ + + | [facility] | | | | + +---------+ + + B Type Natriuretic Peptide (02/02/2020 6:40 AM PDT) + + + + + + | Component | Value | Ref Range | Performed | Pathologist | | | | | At | Signature | + + + + + + | BNP | 635 (H)Comment: New | <100 pg/mL | [facility] | | | | method in use as of | | [facility] | | | | December 02, 2018. Check | | MEDICAL | | | | reference range for | | CENTER - | | | | changes.Some analytes | | LABORATORY | | | | show significant | | | | | | variation from the | | | | | | previous method.It may | | | | | | be necessary to set a | | | | | | new baseline for this | | | | | | analyte. | | | | + + + + + + + + | Specimen | + + | Blood | + + + + + + + | Performing | Address | City/State/Zipcode | Phone Number | | Organization | | | | + + + + + | [facility] | [address] | [place] | [phone] | | [facility] | | [address] | | | - LABORATORY | | | | + + + + + Magnesium (02/02/2020 6:40 AM PDT) + +-------+ + + + | Component | Value | Ref Range | Performed | Pathologist | | | | | At | Signature | + +-------+ + + + | Magnesium | 1.8 | 1.6 - 2.6 mg/dL | [facility] | | | | | | [facility] | | | | | | [facility]ICAL | | | | | | CENTER - | | | | | | LABORATORY | | + +-------+ + + + + + | Specimen | + + | Blood | + + + + + + + | Performing | Address | City/State/Zipcode | Phone Number | | Organization | | | | + + + + + | [facility] | [address] | [place] | [phone] | | [facility] | | [address] | | | - LABORATORY | | | | + + + + + Basic Metabolic Panel (02/02/2020 6:40 AM PDT) + + + + + + | Component | Value | Ref Range | Performed | Pathologist | | | | | At | Signature | + + + + + + | Na | 149 (H) | 136 - 145 | [facility] | | | | | mmol/L | [facility] | | | | | | MEDICAL | | | | | | CENTER - | | | | | | LABORATORY | | + + + + + + | K | 3.0 (L) | 3.4 - 5.1 | [facility] | | | | | mmol/L | [facility] | | | | | | MEDICAL | | | | | | CENTER - | | | | | | LABORATORY | | + + + + + + | Cl | 114 (H) | 98 - 107 mmol/L | [facility] | | | | | | [facility] | | | | | | MEDICAL | | | | | | CENTER - | | | | | | LABORATORY | | + + + + + + | CO2 | 29 | 20 - 31 mmol/L | [facility] | | | | | | [facility] | | | | | | MEDICAL | | | | | | CENTER - | | | | | | LABORATORY | | + + + + + + | Anion Gap | 6 | 3 - 16 mmol/L | [facility] | | | | | | [facility] | | | | | | MEDICAL | | | | | | CENTER - | | | | | | LABORATORY | | + + + + + + | Glucose | 91 | 60 - 106 mg/dL | [facility] | | | | | | [facility] | | | | | | MEDICAL | | | | | | CENTER - | | | | | | LABORATORY | | + + + + + + | BUN | 32 (H) | 9 - 23 mg/dL | [facility] | | | | | | [facility] | | | | | | MEDICAL | | | | | | CENTER - | | | | | | LABORATORY | | + + + + + + | Creatinine | 0.94 | 0.55 - 1.02 | [facility] | | | | | mg/dL | [facility] | | | | | | MEDICAL | | | | | | CENTER - | | | | | | LABORATORY | | + + + + + + | eGFR if not | 56 (L)Comment: | >=60 | [facility] | | | | GLOMERULAR FILTRATION | mL/min/1.73m2 | [facility] | | | [facility] | RATE,ESTIMATED | | MEDICAL | | | | mL/min/1.33l2Hmct than | | CENTER - | | | | 60 Chronic kidney | | LABORATORY | | | | disease,if found over a | | | | | | 3-month period.Less than | | | | | | 15 Kidney failureFor | | | | | | | | | | | | Americans,multiply the | | | | | | calculated GFR by 1.21. | | | | | | | | | | + + + + + + | Calcium | 7.8 (L) | 8.7 - 10.4 | [facility] | | | | | mg/dL | [facility] | | | | | | MEDICAL | | | | | | CENTER - | | | | | | LABORATORY | | + + + + + + | BUN/Creatin | 34.0 | | [facility] | | | ine Ratio | | | [facility] | | | | | | MEDICAL | | | | | | CENTER - | | | | | | LABORATORY | | + + + + + + + + | Specimen | + + | Blood | + + + + + + + | Performing | Address | City/State/Zipcode | Phone Number | | Organization | | | | + + + + + | [facility] | [address] | [place] | [phone] | | [facility] | | [address] | | | - LABORATORY | | | | + + + + + CBC with Differential (02/02/2020 6:40 AM PDT) + + + + + + | Component | Value | Ref Range | Performed | Pathologist | | | | | At | Signature | + + + + + + | WBC | 13.6 (H) | 4.0 - 11.0 K/uL | [facility] | | | | | | [facility] | | | | | | MEDICAL | | | | | | CENTER - | | | | | | LABORATORY | | + + + + + + | RBC | 2.80 (L) | 3.70 - 5.20 | [facility] | | | | | M/uL | [facility] | | | | | | MEDICAL | | | | | | CENTER - | | | | | | LABORATORY | | + + + + + + | Hemoglobin | 8.1 (L) | 11.5 - 16.0 | [facility] | | | | | g/dL | [facility] | | | | | | MEDICAL | | | | | | CENTER - | | | | | | LABORATORY | | + + + + + + | Hematocrit | 26.3 (L) | 34.0 - 47.0 % | [facility] | | | | | | [facility] | | | | | | [facility] | | | | | | CENTER - | | | | | | LABORATORY | | + + + + + + | MCV | 93.9 | 83.0 - 101.0 fL | [facility] | | | | | | [facility] | | | | | | [facility]ICAL | | | | | | CENTER - | | | | | | LABORATORY | | + + + + + + | MCH | 28.9 | 28.0 - 35.0 pg | [facility] | | | | | | [facility] | | | | | | MEDICAL | | | | | | CENTER - | | | | | | LABORATORY | | + + + + + + | MCHC | 30.8 (L) | 32.0 - 36.0 | [facility] | | | | | g/dL | [facility] | | | | | | MEDICAL | | | | | | CENTER - | | | | | | LABORATORY | | + + + + + + | RDW-CV | 15.5 (H) | <15.0 % | [facility] | | | | | | [facility] | | | | | | MEDICAL | | | | | | CENTER - | | | | | | LABORATORY | | + + + + + + | RDW-SD | 54.0 (H) | 35.1 - 46.3 fL | [facility] | | | | | | [facility] | | | | | | MEDICAL | | | | | | CENTER - | | | | | | LABORATORY | | + + + + + + | Platelet | 149 | 140 - 440 K/uL | [facility] | | | Count | | | [facility] | | | | | | MEDICAL | | | | | | CENTER - | | | | | | LABORATORY | | + + + + + + | MPV | 10.9 | 6.5 - 12.4 fL | [facility] | | | | | | [facility] | | | | | | MEDICAL | | | | | | CENTER - | | | | | | LABORATORY | | + + + + + + | % | 89.0 (H) | 45.0 - 82.0 % | [facility] | | | Neutrophils | | | [facility] | | | | | | MEDICAL | | | | | | CENTER - | | | | | | LABORATORY | | + + + + + + | % | 5.8 (L) | 20.0 - 45.0 % | [facility] | | | Lymphocytes | | | [facility] | | | | | | MEDICAL | | | | | | CENTER - | | | | | | LABORATORY | | + + + + + + | % Monocytes | 4.4 | 4.0 - 12.0 % | [facility] | | | | | | [facility] | | | | | | MEDICAL | | | | | | CENTER - | | | | | | LABORATORY | | + + + + + + | % | 0.0 | 0.0 - 5.0 % | [facility] | | | Eosinophils | | | [facility] | | | | | | MEDICAL | | | | | | CENTER - | | | | | | LABORATORY | | + + + + + + | % Basophils | 0.3 | 0.0 - 1.0 % | [facility] | | | | | | [facility] | | | | | | MEDICAL | | | | | | CENTER - | | | | | | LABORATORY | | + + + + + + | % Immature | 0.5 (H)Comment: | 0.0 - 0.4 % | [facility] | | | Granulocyte | Preliminary studies have | | [facility] | | | s | indicated the IG% | | MEDICAL | | | | and/or IG# show promise | | CENTER - | | | | as an early indicator | | LABORATORY | | | | for infection. | | | | + + + + + + | Absolute | 12.07 (H) | 1.80 - 8.50 | [facility] | | | Neutrophils | | K/uL | [facility] | | | | | | MEDICAL | | | | | | CENTER - | | | | | | LABORATORY | | + + + + + + | Absolute | 0.78 | 0.60 - 3.20 | [facility] | | | Lymphocytes | | K/uL | [facility] | | | | | | MEDICAL | | | | | | CENTER - | | | | | | LABORATORY | | + + + + + + | Absolute | 0.59 | 0.00 - 1.00 | [facility] | | | Monocytes | | K/uL | [facility] | | | | | | MEDICAL | | | | | | CENTER - | | | | | | LABORATORY | | + + + + + + | Absolute | 0.00 | 0.00 - 0.40 | [facility] | | | Eosinophils | | K/uL | [facility] | | | | | | MEDICAL | | | | | | CENTER - | | | | | | LABORATORY | | + + + + + + | Absolute | 0.04 | 0.00 - 0.10 | [facility] | | | Basophils | | K/uL | [facility] | | | | | | MEDICAL | | | | | | CENTER - | | | | | | LABORATORY | | + + + + + + | Absolute | 0.07 (H) | 0.00 - 0.03 | [facility] | | | Immature | | K/uL | [facility] | | | Granulocyte | | | MEDICAL | | | s | | | CENTER - | | | | | | LABORATORY | | + + + + + + | % nRBC | 0 | 0 - 2 per 100 | [facility] | | | | | WBCs | [facility] | | | | | | MEDICAL | | | | | | CENTER - | | | | | | LABORATORY | | + + + + + + | Absolute | 0.00 | 0.00 - 0.01 | [facility] | | | nRBC | | K/uL | [facility] | | | | | | MEDICAL | | | | | | CENTER - | | | | | | LABORATORY | | + + + + + + + + | Specimen | + + | Blood | + + + + + + + | Performing | Address | City/State/Zipcode | Phone Number | | Organization | | | | + + + + + | [facility] | [address] | [place] | [phone] | | [facility] | | [address] | | | - LABORATORY | | | | + + + + + Culture, Urine (02/02/2020 3:44 AM PDT) + + + + + + | Component | Value | Ref Range | Performed | Pathologist | | | | | At | Signature | + + + + + + | Culture | >100,000 CFU/ml Roxanna | | [facility] | | | | albicans | | [facility] | | | | | | MEDICAL | | | | | | CENTER - | | | | | | LABORATORY | | + + + + + + + + | Specimen | + + | Urine - Urine | | specimen (specimen) | + + + + + + + | Performing | Address | City/State/Zipcode | Phone Number | | Organization | | | | + + + + + | [facility] | [address] | [place] | [phone] | | [facility] | | [address] | | | - LABORATORY | | | | + + + + + Urinalysis, Reflex Microscopic and/or Culture (02/02/2020 3:44 AM PDT) + + + + + + | Component | Value | Ref Range | Performed | Pathologist | | | | | At | Signature | + + + + + + | Color, | Yellow | Light Yellow, | [facility] | | | Urine | | Yellow, Straw | [facility] | | | | | | MEDICAL | | | | | | CENTER - | | | | | | LABORATORY | | + + + + + + | Clarity | Hazy (A) | Clear | [facility] | | | | | | [facility] | | | | | | MEDICAL | | | | | | CENTER - | | | | | | LABORATORY | | + + + + + + | pH, Urine | 5.0 | 5.0 - 8.0 | [facility] | | | | | | [facility] | | | | | | MEDICAL | | | | | | CENTER - | | | | | | LABORATORY | | + + + + + + | Specific | 1.023 | 1.001 - 1.030 | [facility] | | | [place], | | | [facility] | | | Urine | | | MEDICAL | | | | | | CENTER - | | | | | | LABORATORY | | + + + + + + | Protein, | Negative | Negative | [facility] | | | Urine | | | [facility] | | | | | | MEDICAL | | | | | | CENTER - | | | | | | LABORATORY | | + + + + + + | Blood, | Large (A) | Negative | [facility] | | | Urine | | | [facility] | | | | | | MEDICAL | | | | | | CENTER - | | | | | | LABORATORY | | + + + + + + | Glucose, | Negative | Negative | [facility] | | | Urine | | | [facility] | | | | | | MEDICAL | | | | | | CENTER - | | | | | | LABORATORY | | + + + + + + | Ketones, | Negative | Negative | [facility] | | | Urine | | | [facility] | | | | | | MEDICAL | | | | | | CENTER - | | | | | | LABORATORY | | + + + + + + | Bilirubin, | Negative | Negative | [facility] | | | Urine | | | [facility] | | | | | | MEDICAL | | | | | | CENTER - | | | | | | LABORATORY | | + + + + + + | Nitrite, | Negative | Negative | [facility] | | | Urine | | | [facility] | | | | | | MEDICAL | | | | | | CENTER - | | | | | | LABORATORY | | + + + + + + | Leukocyte | Large (A) | Negative | [facility] | | | Esterase, | | | [facility] | | | Urine | | | MEDICAL | | | | | | CENTER - | | | | | | LABORATORY | | + + + + + + | Urobilinoge | Negative | 0.2 mg/dL, 1.0 | [facility] | | | n, Urine | | mg/dL, Negative | [facility] | | | | | | MEDICAL | | | | | | CENTER - | | | | | | LABORATORY | | + + + + + + | White Blood | >100 (A) | 0 - 2 /HPF | [facility] | | | Cells, | | | [facility] | | | Urine | | | MEDICAL | | | | | | CENTER - | | | | | | LABORATORY | | + + + + + + | White Blood | Few (A) | None Seen /HPF | [facility] | | | Cell | | | [facility] | | | Clumps, | | | MEDICAL | | | Urine | | | CENTER - | | | | | | LABORATORY | | + + + + + + | Red Blood | 25-50 (A) | 0 - 2 /HPF | [facility] | | | Cells, | | | [facility] | | | Urine | | | MEDICAL | | | | | | CENTER - | | | | | | LABORATORY | | + + + + + + | Squamous | 5-10 (A) | 0 - 2 /LPF | [facility] | | | Epithelial | | | [facility] | | | Cells, | | | MEDICAL | | | Urine | | | CENTER - | | | | | | LABORATORY | | + + + + + + | Bacteria, | 1+ (A) | Negative /HPF | [facility] | | | Urine | | | [facility] | | | | | | MEDICAL | | | | | | CENTER - | | | | | | LABORATORY | | + + + + + + | Mucus, | Present (A) | Negative /LPF | [facility] | | | Urine | | | [facility] | | | | | | MEDICAL | | | | | | CENTER - | | | | | | LABORATORY | | + + + + + + | Budding | Moderate (A) | Negative /HPF | [facility] | | | Yeast, | | | [facility] | | | Urine | | | MEDICAL | | | | | | CENTER - | | | | | | LABORATORY | | + + + + + + | Hyaline | 5-10 (A) | 0 - 2 /LPF | [facility] | | | Casts, | | | [facility] | | | Urine | | | MEDICAL | | | | | | CENTER - | | | | | | LABORATORY | | + + + + + + | Urine | Urine Culture Set Up | | [facility] | | | Comment | | | [facility] | | | | | | [facility]ICAL | | | | | | CENTER - | | | | | | LABORATORY | | + + + + + + + + | Specimen | + + | Urine - Urine | | specimen (specimen) | + + + + + + + | Performing | Address | City/State/Zipcode | Phone Number | | Organization | | | | + + + + + | [facility] | [address] | [place] | [phone] | | [facility] | | [address] | | | - LABORATORY | | | | + + + + + Clostridioides difficile NAAT Reflex (02/01/2020 9:01 AM PDT) + + + + + + | Component | Value | Ref Range | Performed | Pathologist | | | | | At | Signature | + + + + + + | C. | NegativeComment: No | Negative | [facility] | | | difficile, | Toxigenic C. difficile | | [facility] | | | Interp | detected. Consider other | | MEDICAL | | | | causes of Diarrhea. | | CENTER - | | | | Repeat testing should | | LABORATORY | | | | not be performed within | | | | | | 7 days. | | | | + + + + + + | C. | Negative | | [facility] | | | difficile, | | | [facility] | | | NAAT | | | MEDICAL | | | | | | CENTER - | | | | | | LABORATORY | | + + + + + + + + | Specimen | + + | Stool - Stool | | specimen (specimen) | + + + + + + + | Performing | Address | City/State/Zipcode | Phone Number | | Organization | | | | + + + + + | [facility] | [address] | [place] | [phone] | | [facility] | | [address] | | | - LABORATORY | | | | + + + + + Stool Pathogens, NAAT (02/01/2020 9:01 AM PDT) + + + + + + | Component | Value | Ref Range | Performed | Pathologist | | | | | At | Signature | + + + + + + | Campylobact | Not Detected | Not Detected | [facility] | | | er, NAAT | | | [facility] | | | | | | MEDICAL | | | | | | CENTER - | | | | | | LABORATORY | | + + + + + + | Salmonella, | Not Detected | Not Detected | [facility] | | | NAAT | | | [facility] | | | | | | MEDICAL | | | | | | CENTER - | | | | | | LABORATORY | | + + + + + + | Shigella | Not Detected | Not Detected | [facility] | | | NAAT | | | [facility] | | | | | | MEDICAL | | | | | | CENTER - | | | | | | LABORATORY | | + + + + + + | Vibrio, | Not Detected | Not Detected | [facility] | | | NAAT | | | [facility] | | | | | | MEDICAL | | | | | | CENTER - | | | | | | LABORATORY | | + + + + + + | Yersinia | Not Detected | Not Detected | [facility] | | | enterocolit | | | [facility] | | | ica, NAAT | | | MEDICAL | | | | | | CENTER - | | | | | | LABORATORY | | + + + + + + | Shigatoxin | Not Detected | Not Detected | [facility] | | | 1 | | | [facility] | | | | | | MEDICAL | | | | | | CENTER - | | | | | | LABORATORY | | + + + + + + | Shigatoxin | Not Detected | Not Detected | [facility] | | | 2 | | | [facility] | | | | | | MEDICAL | | | | | | CENTER - | | | | | | LABORATORY | | + + + + + + + + | Specimen | + + | Stool - Stool | | specimen (specimen) | + + + + + + + | Performing | Address | City/State/Zipcode | Phone Number | | Organization | | | | + + + + + | [facility] | [address] | [place], [place] | [phone] | | [facility] | | [address] | | | - LABORATORY | | | | + + + + + Magnesium (02/01/2020 6:34 AM PDT) + +-------+ + + + | Component | Value | Ref Range | Performed | Pathologist | | | | | At | Signature | + +-------+ + + + | Magnesium | 1.8 | 1.6 - 2.6 mg/dL | [facility] | | | | | | [facility] | | | | | | MEDICAL | | | | | | CENTER - | | | | | | LABORATORY | | + +-------+ + + + + + | Specimen | + + | Blood | + + + + + + + | Performing | Address | City/State/Zipcode | Phone Number | | Organization | | | | + + + + + | [facility] | [address] | [place] | [phone] | | [facility] | | [address] | | | - LABORATORY | | | | + + + + + Basic Metabolic Panel (02/01/2020 6:34 AM PDT) + + + + + + | Component | Value | Ref Range | Performed | Pathologist | | | | | At | Signature | + + + + + + | Na | 150 (H) | 136 - 145 | [facility] | | | | | mmol/L | [facility] | | | | | | MEDICAL | | | | | | CENTER - | | | | | | LABORATORY | | + + + + + + | K | 3.1 (L) | 3.4 - 5.1 | [facility] | | | | | mmol/L | [facility] | | | | | | MEDICAL | | | | | | CENTER - | | | | | | LABORATORY | | + + + + + + | Cl | 113 (H) | 98 - 107 mmol/L | [facility] | | | | | | [facility] | | | | | | MEDICAL | | | | | | CENTER - | | | | | | LABORATORY | | + + + + + + | CO2 | 28 | 20 - 31 mmol/L | [facility] | | | | | | [facility] | | | | | | MEDICAL | | | | | | CENTER - | | | | | | LABORATORY | | + + + + + + | Anion Gap | 9 | 3 - 16 mmol/L | [facility] | | | | | | [facility] | | | | | | MEDICAL | | | | | | CENTER - | | | | | | LABORATORY | | + + + + + + | Glucose | 57 (L) | 60 - 106 mg/dL | [facility] | | | | | | [facility] | | | | | | MEDICAL | | | | | | CENTER - | | | | | | LABORATORY | | + + + + + + | BUN | 34 (H) | 9 - 23 mg/dL | [facility] | | | | | | [facility] | | | | | | MEDICAL | | | | | | CENTER - | | | | | | LABORATORY | | + + + + + + | Creatinine | 0.93 | 0.55 - 1.02 | [facility] | | | | | mg/dL | [facility] | | | | | | MEDICAL | | | | | | CENTER - | | | | | | LABORATORY | | + + + + + + | eGFR if not | 57 (L)Comment: | >=60 | [facility] | | | | GLOMERULAR FILTRATION | mL/min/1.73m2 | [facility] | | | [facility] | RATE,ESTIMATED | | MEDICAL | | | | mL/min/1.92y5Njep than | | CENTER - | | | | 60 Chronic kidney | | LABORATORY | | | | disease,if found over a | | | | | | 3-month period.Less than | | | | | | 15 Kidney failureFor | | | | | | | | | | | | Americans,multiply the | | | | | | calculated GFR by 1.21. | | | | | | | | | | + + + + + + | Calcium | 7.9 (L) | 8.7 - 10.4 | [facility] | | | | | mg/dL | [facility] | | | | | | [facility] | | | | | | CENTER - | | | | | | LABORATORY | | + + + + + + | BUN/Creatin | 36.6 | | [facility] | | | ine Ratio | | | [facility] | | | | | | [facility] | | | | | | CENTER - | | | | | | LABORATORY | | + + + + + + + + | Specimen | + + | Blood | + + + + + + + | Performing | Address | City/State/Zipcode | Phone Number | | Organization | | | | + + + + + | [facility] | [address] | [place] | [phone] | | [facility] | | [id number] | | | - LABORATORY | | | | + + + + + CBC no Differential (02/01/2020 5:20 AM PDT) + + + + + + | Component | Value | Ref Range | Performed | Pathologist | | | | | At | Signature | + + + + + + | WBC | 13.3 (H) | 4.0 - 11.0 K/uL | [facility] | | | | | | [facility] | | | | | | [facility] | | | | | | [facility] - | | | | | | LABORATORY | | + + + + + + | RBC | 2.74 (L) | 3.70 - 5.20 | [facility] | | | | | M/uL | [facility] | | | | | | MEDICAL | | | | | | CENTER - | | | | | | LABORATORY | | + + + + + + | Hemoglobin | 8.0 (L) | 11.5 - 16.0 | [facility] | | | | | g/dL | [facility] | | | | | | MEDICAL | | | | | | CENTER - | | | | | | LABORATORY | | + + + + + + | Hematocrit | 27.0 (L) | 34.0 - 47.0 % | [facility] | | | | | | [facility] | | | | | | [facility] | | | | | | CENTER - | | | | | | LABORATORY | | + + + + + + | MCV | 98.5 | 83.0 - 101.0 fL | [facility] | | | | | | [facility] | | | | | | [facility] | | | | | | CENTER - | | | | | | LABORATORY | | + + + + + + | MCH | 29.2 | 28.0 - 35.0 pg | [facility] | | | | | | [facility] | | | | | | [facility] | | | | | | CENTER - | | | | | | LABORATORY | | + + + + + + | MCHC | 29.6 (L) | 32.0 - 36.0 | [facility] | | | | | g/dL | [facility] | | | | | | [facility] | | | | | | CENTER - | | | | | | LABORATORY | | + + + + + + | RDW-CV | 15.7 (H) | <15.0 % | [facility] | | | | | | [facility] | | | | | | [facility] | | | | | | [facility] - | | | | | | LABORATORY | | + + + + + + | RDW-SD | 56.2 (H) | 35.1 - 46.3 fL | [facility] | | | | | | [facility] | | | | | | [facility] | | | | | | [facility] - | | | | | | LABORATORY | | + + + + + + | Platelet | 160 | 140 - 440 K/uL | [facility] | | | Count | | | [facility] | | | | | | [facility] | | | | | | CENTER - | | | | | | LABORATORY | | + + + + + + | MPV | 11.1 | 6.5 - 12.4 fL | [facility] | | | | | | [facility] | | | | | | MEDICAL | | | | | | CENTER - | | | | | | LABORATORY | | + + + + + + | % nRBC | 0 | 0 - 2 per 100 | [facility] | | | | | WBCs | [facility] | | | | | | MEDICAL | | | | | | CENTER - | | | | | | LABORATORY | | + + + + + + | Absolute | 0.00 | 0.00 - 0.01 | [facility] | | | nRBC | | K/uL | [facility] | | | | | | MEDICAL | | | | | | CENTER - | | | | | | LABORATORY | | + + + + + + + + | Specimen | + + | Blood | + + + + + + + | Performing | Address | City/State/Zipcode | Phone Number | | Organization | | | | + + + + + | [facility] | [address] | [place] | [phone] | | [facility] | | [address] | | | - LABORATORY | | | | + + + + + Troponin I (01/31/2020 9:07 PM PDT) + + + + + + | Component | Value | Ref Range | Performed | Pathologist | | | | | At | Signature | + + + + + + | Troponin I | 0.07 (H)Comment: | <0.06 ng/mL | [facility] | | | | Comment:Reference | | [facility] | | | | Ranges: 0.00-0.06 = | | MEDICAL | | | | NORMAL >0.06 = | | CENTER - | | | | SUSPICIOUS FOR | | LABORATORY | | | | MYOCARDIAL DAMAGE NOTE: | | | | | | Values greater than | | | | | | 0.78 ng/mL have been | | | | | | shown to be strongly | | | | | | associated with acute | | | | | | myocardial infarction. | | | | | | The [employer] | | | | | | Cardiology (ACC) | | | | | | recommends a decision | | | | | | limit of 0.06 ng/mL for | | | | | | this assay. Results | | | | | | greater than 0.06 can | | | | | | reflect a pre-infarct | | | | | | acute coronary syndrome, | | | | | | but can also reflect | | | | | | myocardial necrosis or | | | | | | injury that is not due | | | | | | to coronary artery | | | | | | disease. Some of these | | | | | | causes are sepsis, | | | | | | hypocolemia, atrial | | | | | | fibrillation, heart | | | | | | failure, pulmonary | | | | | | embolism, myocarditis, | | | | | | myocardial contusion, | | | | | | and renal failure. The | | | | | | diagnosis of myocardial | | | | | | infarction should be | | | | | | based on a combination | | | | | | of the patient's | | | | | | clinical presentation | | | | | | and the clinical | | | | | | laboratory test results | | | | | | (especially serial | | | | | | troponin levels). | | | | + + + + + + + + | Specimen | + + | Blood | + + + + + + + | Performing | Address | City/State/Zipcode | Phone Number | | Organization | | | | + + + + + | [facility] | [address] | [place] | [phone] | | [facility] | | [address] | | | - LABORATORY | | | | + + + + + Troponin I (01/31/2020 5:21 PM PDT) + + + + + + | Component | Value | Ref Range | Performed | Pathologist | | | | | At | Signature | + + + + + + | Troponin I | 0.07 (H)Comment: | <0.06 ng/mL | [facility] | | | | Comment:Reference | | [facility] | | | | Ranges: 0.00-0.06 = | | MEDICAL | | | | NORMAL >0.06 = | | CENTER - | | | | SUSPICIOUS FOR | | LABORATORY | | | | MYOCARDIAL DAMAGE NOTE: | | | | | | Values greater than | | | | | | 0.78 ng/mL have been | | | | | | shown to be strongly | | | | | | associated with acute | | | | | | myocardial infarction. | | | | | | The [employer] | | | | | | Cardiology (ACC) | | | | | | recommends a decision | | | | | | limit of 0.06 ng/mL for | | | | | | this assay. Results | | | | | | greater than 0.06 can | | | | | | reflect a pre-infarct | | | | | | acute coronary syndrome, | | | | | | but can also reflect | | | | | | myocardial necrosis or | | | | | | injury that is not due | | | | | | to coronary artery | | | | | | disease. Some of these | | | | | | causes are sepsis, | | | | | | hypocolemia, atrial | | | | | | fibrillation, heart | | | | | | failure, pulmonary | | | | | | embolism, myocarditis, | | | | | | myocardial contusion, | | | | | | and renal failure. The | | | | | | diagnosis of myocardial | | | | | | infarction should be | | | | | | based on a combination | | | | | | of the patient's | | | | | | clinical presentation | | | | | | and the clinical | | | | | | laboratory test results | | | | | | (especially serial | | | | | | troponin levels). | | | | + + + + + + + + | Specimen | + + | Blood | + + + + + + + | Performing | Address | City/State/Zipcode | Phone Number | | Organization | | | | + + + + + | [facility] | [address] | [place] | [phone] | | [facility] | | [address] | | | - LABORATORY | | | | + + + + + Culture, Blood (01/31/2020 5:21 PM PDT) + + + + + + | Component | Value | Ref Range | Performed | Pathologist | | | | | At | Signature | + + + + + + | Culture | No growth after 5 days | | [facility] | | | | incubation. | | [facility] | | | | | | MEDICAL | | | | | | CENTER - | | | | | | LABORATORY | | + + + + + + + + | Specimen | + + | Blood - Swab of line | | insertion site | | (specimen) | + + + + + + + | Performing | Address | City/State/Zipcode | Phone Number | | Organization | | | | + + + + + | [facility] | [address] | [place] | [phone] | | [facility] | | [address] | | | - LABORATORY | | | | + + + + + Influenza A and B RNA, NAAT (01/31/2020 3:14 PM PDT) + + + + + + | Component | Value | Ref Range | Performed | Pathologist | | | | | At | Signature | + + + + + + | Influenza A | Negative | Negative, Test | [facility] | | | PCR | | not performed | [facility] | | | | | | MEDICAL | | | | | | CENTER - | | | | | | LABORATORY | | + + + + + + | Influenza B | Negative | Negative, Test | [facility] | | | PCR | | not performed | [facility] | | | | | | MEDICAL | | | | | | CENTER - | | | | | | LABORATORY | | + + + + + + + + | Specimen | + + | Tissue - Entire | | nasopharynx (body | | structure) | + + + + + + + | Performing | Address | City/State/Zipcode | Phone Number | | Organization | | | | + + + + + | [facility] | [address] | [place] | [phone] | | [facility] | | [address] | | | - LABORATORY | | | | + + + + + Respiratory pathogen panel, NAAT (01/31/2020 3:13 PM PDT) + + + + + + | Component | Value | Ref Range | Performed | Pathologist | | | | | At | Signature | + + + + + + | Parainfluen | Not Detected | Not Detected | [facility] | | | za 1 | | | [facility] | | | | | | MEDICAL | | | | | | CENTER - | | | | | | LABORATORY | | + + + + + + | Adenovirus | Not Detected | Not Detected | [facility] | | | | | | [facility] | | | | | | [facility] | | | | | | CENTER - | | | | | | LABORATORY | | + + + + + + | Human | Not Detected | Not Detected | [facility] | | | Metapneumov | | | [facility] | | | irus | | | MEDICAL | | | | | | CENTER - | | | | | | LABORATORY | | + + + + + + | Rhinovirus/ | Not Detected | Not Detected | [facility] | | | Enterovirus | | | [facility] | | | | | | MEDICAL | | | | | | CENTER - | | | | | | LABORATORY | | + + + + + + | Parainfluen | Not Detected | Not Detected | [facility] | | | za 3 | | | [facility] | | | | | | MEDICAL | | | | | | CENTER - | | | | | | LABORATORY | | + + + + + + + + | Specimen | + + | Body Fluid - Entire | | nasopharynx (body | | structure) | + + + + + + + | Performing | Address | City/State/Zipcode | Phone Number | | Organization | | | | + + + + + | [facility] | [address] | [place] | [phone] | | [facility] | | [address] | | | - LABORATORY | | | | + + + + + Urinalysis, Microscopic Only (01/31/2020 12:20 PM PDT) + + + + + + | Component | Value | Ref Range | Performed | Pathologist | | | | | At | Signature | + + + + + + | White Blood | 0-2 | 0 - 2 /HPF | [facility] | | | Cells, | | | [facility] | | | Urine | | | MEDICAL | | | | | | CENTER - | | | | | | LABORATORY | | + + + + + + | White Blood | | | [facility] | | | Cell | | | [facility] | | | Clumps, | | | MEDICAL | | | Urine | | | CENTER - | | | | | | LABORATORY | | + + + + + + | Red Blood | 0-2 | 0 - 2 /HPF | [facility] | | | Cells, | | | [facility] | | | Urine | | | MEDICAL | | | | | | CENTER - | | | | | | LABORATORY | | + + + + + + | Squamous | 0-2 | 0 - 2 /LPF | [facility] | | | Epithelial | | | [facility] | | | Cells, | | | MEDICAL | | | Urine | | | CENTER - | | | | | | LABORATORY | | + + + + + + | Bacteria, | Negative | Negative /HPF | [facility] | | | Urine | | | [facility] | | | | | | MEDICAL | | | | | | CENTER - | | | | | | LABORATORY | | + + + + + + | Budding | Few (A) | Negative /HPF | [facility] | | | Yeast, | | | [facility] | | | Urine | | | MEDICAL | | | | | | CENTER - | | | | | | LABORATORY | | + + + + + + | Hyaline | 2-5 (A) | 0 - 2 /LPF | [facility] | | | Casts, | | | [facility] | | | Urine | | | MEDICAL | | | | | | CENTER - | | | | | | LABORATORY | | + + + + + + + + | Specimen | + + | Urine | + + + + + + + | Performing | Address | City/State/Zipcode | Phone Number | | Organization | | | | + + + + + | [facility] | [address] | [place] | [phone] | | [facility] | | [address] | | | - LABORATORY | | | | + + + + + CT Head wo Contrast (01/31/2020 10:24 AM PDT) + + | Specimen | + + | | + + + + + | Impressions | Performed At | + + + | 1. NO EVIDENCE OF ACUTE INTRACRANIAL DISEASE. 2. 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 Images were | | | provided for interpretation on January 31, 2020 at 1035 hours. Results | | | were finalized at 1045 hours. Dictated and Signed by: Sivakumar Mejias | MD Tristen Electronically signed: 01/31/2020 10:47 AM | | + + + + + + | Narrative | Performed At | + + + | UN[facility] HEAD CT 01/31/2020 10:22 AM CLINICAL HISTORY: | [facility] | | Altered mental status COMPARISON: CT November 03 and more | | | remote imaging TECHNIQUE: Axial unenhanced images are performed | | | through the head, along with coronal and sagittal reformations. | | | FINDINGS: Mild to moderate cerebral atrophy and commensurate ex | | | vacuo ventricular dilation are again apparent. There is similar | | | localized encephalomalacia in the left occipital lobe, consistent | | | with chronic infarction. Tomlinson-white differentiation is maintained | | | elsewhere. There is similar patchy hypoattenuation of the | | | periventricular cerebral white matter. Tiny hypodensities are again | | | visible in the bilateral basal ganglia, favoring chronic lacunar | | | infarcts. The brainstem and cerebellum are unremarkable. There is | | | no mass effect, evidence of recent intracranial hemorrhage or | | | extra-axial abnormality. The sella turcica is mostly empty, | | | typically a normal variant. Heavily calcified plaque is again | | | apparent in the terminal vertebral and internal carotid arteries. | | | Bilateral prosthetic ocular lenses persist. Previously noted right | | | parietal scalp hematoma has resolved. There is a stable tiny, | | | chronic calcified lesion in the right parietal scalp. A sessile | | | sclerotic lesion arising from the inner table of the right frontal | | | calvarium is stable, favoring an osteoma. Asymmetric degeneration | | | of the right TMJ is again noted. Imaged paranasal sinuses are well | | | aerated along with the middle ear cavities and mastoid air cells. | | + + + + + | Procedure Note | + + | [facility], Rad Results In - 01/31/2020 10:50 AM PDT UNENHANCED HEAD CT 01/31/2020 10:22 AM | | | | CLINICAL HISTORY: Altered mental status | | | | COMPARISON: CT November 03 and more remote imaging | | | | TECHNIQUE: Axial unenhanced images are performed through the head, along with | | coronal and sagittal reformations. | | | | FINDINGS: Mild to moderate cerebral atrophy and commensurate ex vacuo | | ventricular dilation are again apparent. There is similar localized | | encephalomalacia in the left occipital lobe, consistent with chronic infarction. | | Tomlinson-white differentiation is maintained elsewhere. There is similar patchy | | hypoattenuation of the periventricular cerebral white matter. Tiny | | hypodensities are again visible in the bilateral basal ganglia, favoring chronic | | lacunar infarcts. The brainstem and cerebellum are unremarkable. There is no | | mass effect, evidence of recent intracranial hemorrhage or extra-axial | | abnormality. The sella turcica is mostly empty, typically a normal variant. | | Heavily calcified plaque is again apparent in the terminal vertebral and | | internal carotid arteries. Bilateral prosthetic ocular lenses persist. | | Previously noted right parietal scalp hematoma has resolved. There is a stable | | tiny, chronic calcified lesion in the right parietal scalp. A sessile sclerotic | | lesion arising from the inner table of the right frontal calvarium is stable, | | favoring an osteoma. Asymmetric degeneration of the right TMJ is again noted. | | Imaged paranasal sinuses are well aerated along with the middle ear cavities and | | mastoid air cells. | | | | IMPRESSION: | | 1. NO EVIDENCE OF ACUTE INTRACRANIAL DISEASE. | | | | 2. 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 | | | | Images were provided for interpretation on January 31, 2020 at 1035 hours. | | Results were finalized at 1045 hours. | | | | Dictated and Signed by: Sivakumar Ramon MD | | Electronically signed: 01/31/2020 10:47 AM | + + + +---------+ + + | Performing | Address | City/State/Zipcode | Phone Number | | Organization | | | | + +---------+ + + | [facility] | | | | + +---------+ + + CT Chest Abdomen Pelvis w Contrast (01/31/2020 10:24 AM PDT) + + | Specimen | + + | | + + + + + | Impressions | Performed At | + + + | 1. NEW BUT HEALING APPEARING FRACTURE OF THE RIGHT INFERIOR PUBIC | [facility] | | RAMUS COMPARED WITH IMAGING OF OCTOBER 27. NO ACUTE FRACTURE IS | | | IDENTIFIED. 2. CHRONIC SMALL DEPENDENT RIGHT PLEURAL EFFUSION | | | WITH OVERALL IMPROVED CLUSTERED NODULARITY AND MUCOUS PLUGGING IN THE | | | LUNGS, FAVORING AIRWAY CENTERED INFECTION OR INFLAMMATION. 3. | | | CHRONIC, MARKED BILIARY DUCTAL DILATION AND PROMINENCE OF THE | | | PANCREATIC DUCT. CONSIDER FOLLOW-UP NON-EMERGENT MRCP IF FURTHER | | | CHARACTERIZATION IS DESIRED. 4. MILDLY PROMINENT, FLUID-FILLED | | | SMALL BOWEL IN THE LEFT ABDOMEN WITHOUT EVIDENCE OF OBSTRUCTION. | | | 5. IMPROVED WALL THICKENING AND MESENTERIC STRANDING IN THE | | | RECTOSIGMOID REGION. 6. EXTENSIVE VASCULAR CALCIFICATION WITH | | | CHRONIC ENLARGEMENT OF THE MAIN PULMONARY ARTERY, SUGGESTING | | | PULMONARY ARTERIAL HYPERTENSION. Images were provided for | | | interpretation on January 31, 2020 at 1035 hours. Results were | | | finalized at 1110 hours. Dictated and Signed by: Sivakumar Ramon MD | | | Electronically signed: 01/31/2020 11:10 AM | | + + + + + + | Narrative | Performed At | + + + | ENHANCED CT CHEST, ABDOMEN, AND PELVIS, 01/31/2020 10:22 AM | [facility] | | CLINICAL HISTORY: ALOC and abdominal pain COMPARISON: | | | Chest radiography from the same day, chest CT December 01, CT | | | abdomen and pelvis October 27 and more remote imaging TECHNIQUE: | | | Axial images are performed through the chest, abdomen, and pelvis | | | following the uneventful intravenous administration of 80 mL Omnipaque | | | 350 contrast. Multiplanar reformations are also performed. | | | CHEST FINDINGS: There is calcified plaque in the aorta, proximal | | | great vessels and coronary arteries. 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 There is similar dilation of the ascending aorta to | | | a diameter of 3.9 cm. Dilation of the main pulmonary artery up to | | | a diameter of 3.7 cm is unchanged. No pathologic lymph node | | | enlargement is evident. There is no pericardial effusion or | | | pneumothorax. Minimal dependent right pleural fluid persists and is | | | similar in volume. Previously described clustered nodularity | | | involving portions of both lungs has significantly improved from | | | imaging of December 01. Few new small regions of ground glass | | | nodularity are apparent in the right apex, posterior left upper lobe | | | and posterior superior left lower lobe. Previously described mucous | | | plugging in the right middle and lower lobes has mostly resolved. | | | No new airway abnormality is evident. There is generalized | | | osteopenia. Severe degeneration of the glenohumeral joints is | | | apparent. There is S-shaped thoracolumbar curvature and extensive | | | vertebral spondylosis. Healed bilateral rib fractures are present. | | | ABDOMEN FINDINGS: The gallbladder is surgically absent and there | | | is similar marked, generalized biliary ductal dilation, with the | | | common bile duct again measuring up to 2.8 cm in diameter. | | | Prominence of the main pancreatic duct is again demonstrated along | | | with generalized pancreatic atrophy. There is a stable 1.2 cm | | | rounded region of presumed enhancement in the far inferior, posterior | | | right hepatic lobe, favoring a transient perfusion anomaly or other | | | benign lesion. The spleen and adrenal glands are unremarkable. | | | Numerous tiny rounded hypodensities persist in the kidneys, | | | favoring cysts. No nephroureterolithiasis or hydroureteronephrosis | | | is evident. Previously described wall thickening and adjacent | | | mesenteric stranding in the rectosigmoid region are less pronounced | | | presently. Left colonic diverticulosis is present. There is no | | | evidence of bowel obstruction or significant stool retention. Fluid | | | is present within mildly prominent small bowel segments throughout | | | the left abdomen and nondilated small bowel elsewhere in the abdomen | | | without evident bowel wall thickening or mesenteric abnormality. | | | The appendix is not identified. The stomach is unremarkable. No | | | free air, ascites, pathologic lymph node enlargement or hernia is | | | evident. There is extensive aortoiliac calcification with similar | | | ectasia of the infrarenal aorta to a diameter of 3 cm. There is | | | calcification involving visceral aortic branch origins. Abdominal | | | vasculature is otherwise unremarkable. Extensive multilevel | | | degenerative changes are again apparent in the lumbar spine, with | | | osseous posterior fusion present at L4-5 and L5-S1, where there is | | | chronic anterolisthesis. PELVIS FINDINGS: The uterus is absent. | | | Bladder and adnexal regions are unremarkable. No free air, free | | | fluid, pathologic lymph node enlargement, or hernia is evident. A | | | healing appearing fracture of the right inferior pubic ramus is now | | | apparent. No acute fracture is visible. Bones and soft tissues | | | are otherwise unremarkable. | | + + + + + | Procedure Note | + + | [facility], Rad Results In - 01/31/2020 11:[address] CHEST, ABDOMEN, AND PELVIS, | | 01/31/2020 10:22 AM CLINICAL HISTORY: ALOC and abdominal pain COMPARISON: Chest | | radiography from the same day, chest CT December 01, CTabdomen and pelvis October 27 and | | more remote imagingTECHNIQUE: Axial images are performed through the chest, abdomen, | | and pelvisfollowing the uneventful intravenous administration of 80 mL Omnipaque | | 350contrast. Multiplanar reformations are also performed.CHEST FINDINGS: There is | | calcified plaque in the aorta, proximal great vesselsand coronary arteries. An aortic | | valve prosthesis is again apparent. There issimilar dilation of the ascending aorta to | | a diameter of 3.9 cm. Dilation ofthe main pulmonary artery up to a diameter of 3.7 cm | | is unchanged. Nopathologic lymph node enlargement is evident. There is no pericardial | | effusionor pneumothorax. Minimal dependent right pleural fluid persists and is | | similarin volume. Previously described clustered nodularity involving portions of | | bothlungs has significantly improved from imaging of December 01. Few new smallregions | | of ground glass nodularity are apparent in the right apex, posteriorleft upper lobe and | | posterior superior left lower lobe. Previously describedmucous plugging in the right | | middle and lower lobes has mostly resolved. No newairway abnormality is evident. There | | is generalized osteopenia. Severedegeneration of the glenohumeral joints is apparent. | | There is S-shapedthoracolumbar curvature and extensive vertebral spondylosis. Healed | | bilateralrib fractures are present.ABDOMEN FINDINGS: The gallbladder is surgically | | absent and there is similarmarked, generalized biliary ductal dilation, with the common | | bile duct againmeasuring up to 2.8 cm in diameter. Prominence of the main pancreatic | | duct isagain demonstrated along with generalized pancreatic atrophy. There is a | | stable1.2 cm rounded region of presumed enhancement in the far inferior, posteriorright | | hepatic lobe, favoring a transient perfusion anomaly or other benignlesion. The spleen | | and adrenal glands are unremarkable. Numerous tiny roundedhypodensities persist in the | | kidneys, favoring cysts. No nephroureterolithiasisor hydroureteronephrosis is evident. | | Previously described wall thickening andadjacent mesenteric stranding in the | | rectosigmoid region are less pronouncedpresently. Left colonic diverticulosis is | | present. There is no evidence ofbowel obstruction or significant stool retention. | | Fluid is present withinmildly prominent small bowel segments throughout the left abdomen | | and nondilatedsmall bowel elsewhere in the abdomen without evident bowel wall | | thickening ormesenteric abnormality. The appendix is not identified. The stomach | | isunremarkable. No free air, ascites, pathologic lymph node enlargement or herniais | | evident. There is extensive aortoiliac calcification with similar ectasia ofthe | | infrarenal aorta to a diameter of 3 cm. There is calcification involvingvisceral aortic | | branch origins. Abdominal vasculature is otherwiseunremarkable. Extensive multilevel | | degenerative changes are again apparent inthe lumbar spine, with osseous posterior | | fusion present at L4-5 and L5-S1, wherethere is chronic anterolisthesis.PELVIS FINDINGS: | | The uterus is absent. Bladder and adnexal regions areunremarkable. No free air, free | | fluid, pathologic lymph node enlargement, orhernia is evident. A healing appearing | | fracture of the right inferior pubicramus is now apparent. No acute fracture is | | visible. Bones and soft tissuesare otherwise unremarkable.IMPRESSION: 1. NEW BUT | | HEALING APPEARING FRACTURE OF THE RIGHT INFERIOR PUBIC RAMUSCOMPARED WITH IMAGING OF | | OCTOBER 27. NO ACUTE FRACTURE IS IDENTIFIED.2. CHRONIC SMALL DEPENDENT RIGHT PLEURAL | | EFFUSION WITH OVERALL IMPROVEDCLUSTERED NODULARITY AND MUCOUS PLUGGING IN THE LUNGS, | | FAVORING AIRWAY CENTEREDINFECTION OR INFLAMMATION.3. CHRONIC, MARKED BILIARY DUCTAL | | DILATION AND PROMINENCE OF THE PANCREATICDUCT. CONSIDER FOLLOW-UP NON-EMERGENT MRCP IF | | FURTHER CHARACTERIZATION ISDESIRED.4. MILDLY PROMINENT, FLUID-FILLED SMALL BOWEL IN THE | | LEFT ABDOMEN WITHOUTEVIDENCE OF OBSTRUCTION.5. IMPROVED WALL THICKENING AND MESENTERIC | | STRANDING IN THE RECTOSIGMOIDREGION.6. EXTENSIVE VASCULAR CALCIFICATION WITH CHRONIC | | ENLARGEMENT OF THE MAINPULMONARY ARTERY, SUGGESTING PULMONARY ARTERIAL | | HYPERTENSION.Images were provided for interpretation on January 31, 2020 at 1035 hours. | | Results were finalized at 1110 hours.Dictated and Signed by: Sivakumar Ramon MD | | Electronically signed: 01/31/2020 11:10 AM | |are otherwise unremarkable. | | | |IMPRESSION: | |1. NEW BUT HEALING APPEARING FRACTURE OF THE RIGHT INFERIOR PUBIC RAMUS | |COMPARED WITH IMAGING OF OCTOBER 27. NO ACUTE FRACTURE IS IDENTIFIED. | | | |2. CHRONIC SMALL DEPENDENT RIGHT PLEURAL EFFUSION WITH OVERALL IMPROVED | |CLUSTERED NODULARITY AND MUCOUS PLUGGING IN THE LUNGS, FAVORING AIRWAY CENTERED | |INFECTION OR INFLAMMATION. | | | |3. CHRONIC, MARKED BILIARY DUCTAL DILATION AND PROMINENCE OF THE PANCREATIC | |DUCT. CONSIDER FOLLOW-UP NON-EMERGENT MRCP IF FURTHER CHARACTERIZATION IS | |DESIRED. | | | |4. MILDLY PROMINENT, FLUID-FILLED SMALL BOWEL IN THE LEFT ABDOMEN WITHOUT | |EVIDENCE OF OBSTRUCTION. | | | |5. IMPROVED WALL THICKENING AND MESENTERIC STRANDING IN THE RECTOSIGMOID | |REGION. | | | |6. EXTENSIVE VASCULAR CALCIFICATION WITH CHRONIC ENLARGEMENT OF THE MAIN | |PULMONARY ARTERY, SUGGESTING PULMONARY ARTERIAL HYPERTENSION. | | | |Images were provided for interpretation on January 31, 2020 at 1035 hours. | |Results were finalized at 1110 hours. | | | |Dictated and Signed by: Sivakumar Ramon MD | | Electronically signed: 01/31/2020 11:10 AM | + + + +---------+ + + | Performing | Address | City/State/Zipcode | Phone Number | | Organization | | | | + +---------+ + + | [facility] | | | | + +---------+ + + [facility] STAT instructions for COVID-19 tracking (01/31/2020 9:47 AM PDT) + +-------+ + + + | Component | Value | Ref Range | Performed | Pathologist | | | | | At | Signature | + +-------+ + + + | [facility] | done | | [facility] | | | COVID STAT | | | | | | instruction | | | | | + +-------+ + + + + + | Specimen | + + | Tissue - Entire | | nasopharynx (body | | structure) | + + + +---------+ + + | Performing | Address | City/State/Zipcode | Phone Number | | Organization | | | | + +---------+ + + | [facility] | | | | + +---------+ + + Coronavirus (COVID-19) NAAT (01/31/2020 9:47 AM PDT) + + + + + + | Component | Value | Ref Range | Performed | Pathologist | | | | | At | Signature | + + + + + + | SARS | Not DetectedComment: See | Not Detected | [facility] | | | coronavirus | Scanned Report | | | | | 2 NAAT | | | | | + + + + + + + + | Specimen | + + | Tissue - Entire | | nasopharynx (body | | structure) | + + + + + | Narrative | Performed At | + + + | | | + + + + +---------+ + + | Performing | Address | City/State/Zipcode | Phone Number | | Organization | | | | + +---------+ + + | [facility] | | | | + +---------+ + + ECG 12 lead (01/31/2020 9:28 AM PDT) + + + + + + | Component | Value | Ref Range | Performed | Pathologist | | | | | At | Signature | + + + + + + | VENTRICULAR | 90 | BPM | [facility] | | | RATE EKG | | | | | + + + + + + | ATRIAL RATE | 84 | BPM | [facility] | | + + + + + + | P-R | 164 | ms | [facility] | | | INTERVAL | | | | | + + + + + + | QRS | 86 | ms | [facility] | | | DURATION | | | | | + + + + + + | Q-T | 358 | ms | [facility] | | | INTERVAL | | | | | + + + + + + | Q-T | 437 | ms | [facility] | | | INTERVAL | | | | | | (CORRECTED) | | | | | + + + + + + | QRS AXIS | 70 | degrees | [facility] | | + + + + + + | T AXIS | 81 | degrees | [facility] | | + + + + + + | INTERPRETAT | Poor data quality, | | [facility] | | | ION TEXT | interpretation may be | | | | | | adversely | | | | | | affectedAccelerated | | | | | | Junctional rhythm with | | | | | | PVCNumerous leads cannot | | | | | | be interpreted. Cannot | | | | | | exclude | | | | | | ischemia/infarctionAbnor | | | | | | mal ECGWhen compared | | | | | | with ECG of 04-DEC-2019 | | | | | | 15:45,Poor data quality | | | | | | in current ECG precludes | | | | | | serial | | | | | | comparisonConfirmed by | | | | | | LEONIDAS CALVO MD ([id number]) | | | | | | on 02/01/2020 5:46:52 AM | | | | + + + + + + + + | Specimen | + + | | + + + + + | Narrative | Performed At | + + + | | | + + + + +---------+ + + | Performing | Address | City/State/Zipcode | Phone Number | | Organization | | | | + +---------+ + + | [facility] | | | | + +---------+ + + XR Chest AP Portable (01/31/2020 9:16 AM PDT) + + | Specimen | + + | | + + + + + | Impressions | Performed At | + + + | No acute findings. Dictated and Signed by: Patrick Rodriguez MD | [facility] | | Electronically signed: 01/31/2020 10:17 AM | | + + + + + + | Narrative | Performed At | + + + | XR CHEST AP PORTABLE 01/31/2020 9:15 AM HISTORY: SOB. | [facility] | | COMPARISON: Multiple priors. Findings: Heart size is at the upper | | | limits of normal. 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 | | | There is atherosclerosis of the aorta. Central pulmonary vasculature | | | is normal. Mild diffuse scarring are present of the bilateral lungs. | | | Degenerative changes are noted of the shoulders. There is moderate | | | spondylosis. | | + + + + + | Procedure Note | + + | Kobe, Rad Results In - 01/31/2020 10:20 AM PDT XR CHEST AP PORTABLE 01/31/2020 9:15 AM | | | | HISTORY: SOB. | | | | COMPARISON: Multiple priors. | | | | Findings: | | Heart size is at the upper limits of normal. 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 There is atherosclerosis of the aorta. Central pulmonary | | vasculature is normal. Mild diffuse scarring are present of the bilateral lungs. | | Degenerative changes are noted of the shoulders. There is moderate spondylosis. | | | | IMPRESSION: | | No acute findings. | | | | Dictated and Signed by: Patrick Rodriguez MD | | Electronically signed: 01/31/2020 10:17 AM | + + + +---------+ + + | Performing | Address | City/State/Zipcode | Phone Number | | Organization | | | | + +---------+ + + | [facility] | | | | + +---------+ + + Magnesium (01/31/2020 9:07 AM PDT) + +-------+ + + + | Component | Value | Ref Range | Performed | Pathologist | | | | | At | Signature | + +-------+ + + + | Magnesium | 1.9 | 1.6 - 2.6 mg/dL | [facility] | | | | | | [facility] | | | | | | [facility] | | | | | | C[facility] - | | | | | | LABORATORY | | + +-------+ + + + + + | Specimen | + + | Blood | + + + + + + + | Performing | Address | City/State/Zipcode | Phone Number | | Organization | | | | + + + + + | [facility] | [address] | [place] | [phone] | | [facility] | | [address] | | | - LABORATORY | | | | + + + + + Lipase (01/31/2020 9:07 AM PDT) + + + + + + | Component | Value | Ref Range | Performed | Pathologist | | | | | At | Signature | + + + + + + | Lipase | 16Comment: New method in | 12 - 53 U/L | [facility] | | | | use as of December 02 | | [facility] | | | | 2018. Check reference | | MEDICAL | | | | range for changes.Some | | CENTER - | | | | analytes show | | LABORATORY | | | | significant variation | | | | | | from the previous | | | | | | method.It may be | | | | | | necessary to set a new | | | | | | baseline for this | | | | | | analyte. | | | | + + + + + + + + | Specimen | + + | Blood | + + + + + + + | Performing | Address | City/State/Zipcode | Phone Number | | Organization | | | | + + + + + | [facility] | [address] | [place] | [phone] | | [facility] | | [address] | | | - LABORATORY | | | | + + + + + B Type Natriuretic Peptide (01/31/2020 9:07 AM PDT) + + + + + + | Component | Value | Ref Range | Performed | Pathologist | | | | | At | Signature | + + + + + + | BNP | 850 (H)Comment: New | <100 pg/mL | [facility] | | | | method in use as of | | [facility] | | | | December 02, 2018. Check | | MEDICAL | | | | reference range for | | CENTER - | | | | changes.Some analytes | | LABORATORY | | | | show significant | | | | | | variation from the | | | | | | previous method.It may | | | | | | be necessary to set a | | | | | | new baseline for this | | | | | | analyte. | | | | + + + + + + + + | Specimen | + + | Blood | + + + + + + + | Performing | Address | City/State/Zipcode | Phone Number | | Organization | | | | + + + + + | [facility] | [address] | [place] | [phone] | | [facility] | | [address] | | | - LABORATORY | | | | + + + + + Troponin I (01/31/2020 9:07 AM PDT) + + + + + + | Component | Value | Ref Range | Performed | Pathologist | | | | | At | Signature | + + + + + + | Troponin I | 0.09 (H)Comment: | <0.06 ng/mL | [facility] | | | | Comment:Reference | | [facility] | | | | Ranges: 0.00-0.06 = | | MEDICAL | | | | NORMAL >0.06 = | | CENTER - | | | | SUSPICIOUS FOR | | LABORATORY | | | | MYOCARDIAL DAMAGE NOTE: | | | | | | Values greater than | | | | | | 0.78 ng/mL have been | | | | | | shown to be strongly | | | | | | associated with acute | | | | | | myocardial infarction. | | | | | | The [employer] | | | | | | Cardiology (ACC) | | | | | | recommends a decision | | | | | | limit of 0.06 ng/mL for | | | | | | this assay. Results | | | | | | greater than 0.06 can | | | | | | reflect a pre-infarct | | | | | | acute coronary syndrome, | | | | | | but can also reflect | | | | | | myocardial necrosis or | | | | | | injury that is not due | | | | | | to coronary artery | | | | | | disease. Some of these | | | | | | causes are sepsis, | | | | | | hypocolemia, atrial | | | | | | fibrillation, heart | | | | | | failure, pulmonary | | | | | | embolism, myocarditis, | | | | | | myocardial contusion, | | | | | | and renal failure. The | | | | | | diagnosis of myocardial | | | | | | infarction should be | | | | | | based on a combination | | | | | | of the patient's | | | | | | clinical presentation | | | | | | and the clinical | | | | | | laboratory test results | | | | | | (especially serial | | | | | | troponin levels). | | | | + + + + + + + + | Specimen | + + | Blood | + + + + + + + | Performing | Address | City/State/Zipcode | Phone Number | | Organization | | | | + + + + + | [facility] | [address] | [place] | [phone] | | [facility] | | [address] | | | - LABORATORY | | | | + + + + + C-Reactive Protein (01/31/2020 9:07 AM PDT) + + + + + + | Component | Value | Ref Range | Performed | Pathologist | | | | | At | Signature | + + + + + + | CRP | 99.10 (H) | <10.00 mg/L | [facility] | | | | | | [facility] | | | | | | MEDICAL | | | | | | CENTER - | | | | | | LABORATORY | | + + + + + + + + | Specimen | + + | Blood | + + + + + + + | Performing | Address | City/State/Zipcode | Phone Number | | Organization | | | | + + + + + | [facility] | [address] | [place] | [phone] | | [facility] | | [address] | | | - LABORATORY | | | | + + + + + Protime INR (01/31/2020 9:07 AM PDT) + + + + + + | Component | Value | Ref Range | Performed | Pathologist | | | | | At | Signature | + + + + + + | Prothrombin | 14.6 (H) | 11.3 - 13.9 | [facility] | | | Time | | seconds | [facility] | | | | | | MEDICAL | | | | | | CENTER - | | | | | | LABORATORY | | + + + + + + | INR | 1.1Comment: Usual Oral | 0.9 - 1.1 | [facility] | | | | Anticoagulation Range: | | [facility] | | | | 2.0 - 3.0High | | MEDICAL | | | | Level Oral | | CENTER - | | | | Anticoagulation Range: | | LABORATORY | | | | 2.5 - 3.5 | | | | + + + + + + + + | Specimen | + + | Blood | + + + + + + + | Performing | Address | City/State/Zipcode | Phone Number | | Organization | | | | + + + + + | [facility] | [address] | [place] | [phone] | | [facility] | | [address] | | | - LABORATORY | | | | + + + + + Procalcitonin (01/31/2020 9:07 AM PDT) + + + + + + | Component | Value | Ref Range | Performed | Pathologist | | | | | At | Signature | + + + + + + | Procalciton | 0.23 | <=0.50 ng/mL | [facility] | | | in | | | [facility] | | | | | | [facility]ICAL | | | | | | CENTER - | | | | | | LABORATORY | | + + + + + + | Comment | Comment: < 0.50 | | [facility] | | | | ng/mL:Procalcitonin | | [facility] | | | | levels below 0.50 ng/mL | | MEDICAL | | | | on the first day of | | CENTER - | | | | admission represents a | | LABORATORY | | | | low risk for progression | | | | | | to severe sepsis and/or | | | | | | septic shock, however | | | | | | these do not exclude an | | | | | | infection, because | | | | | | localized infections | | | | | | (without systemic signs) | | | | | | may also be associated | | | | | | with such low levels. | | | | | | > 2.00 | | | | | | ng/mL:Procalcitonin | | | | | | levels above 2.00 ng/mL | | | | | | on the first day of | | | | | | admission represents a | | | | | | high risk for | | | | | | progression to severe | | | | | | sepsis and/or septic | | | | | | shock. If the | | | | | | procalcitonin | | | | | | measurement is performed | | | | | | shortly after the | | | | | | systemic infection | | | | | | process has started | | | | | | (usually less than 6 | | | | | | hours), these values may | | | | | | still be low. As | | | | | | various non-infectious | | | | | | conditions are known to | | | | | | induce procalcitonin as | | | | | | well, procalcitonin | | | | | | levels between 0.50 | | | | | | ng/mL and 2.00 ng/mL | | | | | | should be reviewed | | | | | | carefully to take into | | | | | | account the specific | | | | | | clinical background and | | | | | | condition(s) of the | | | | | | individual patient. | | | | + + + + + + + + | Specimen | + + | Blood | + + + + + + + | Performing | Address | City/State/Zipcode | Phone Number | | Organization | | | | + + + + + | [facility] | [address] | [place] | [phone] | | [facility] | | [address] | | | - LABORATORY | | | | + + + + + Lactic Acid (01/31/2020 9:07 AM PDT) + +-------+ + + + | Component | Value | Ref Range | Performed | Pathologist | | | | | At | Signature | + +-------+ + + + | Lactate | 1.0 | 0.5 - 2.2 | [facility] | | | | | mmol/L | [facility] | | | | | | MEDICAL | | | | | | CENTER - | | | | | | LABORATORY | | + +-------+ + + + + + | Specimen | + + | Blood | + + + + + + + | Performing | Address | City/State/Zipcode | Phone Number | | Organization | | | | + + + + + | [facility] | [address] | [place] | [phone] | | [facility] | | [address] | | | - LABORATORY | | | | + + + + + Comprehensive Metabolic Panel (01/31/2020 9:07 AM PDT) + + + + + + | Component | Value | Ref Range | Performed | Pathologist | | | | | At | Signature | + + + + + + | Na | 144 | 136 - 145 | [facility] | | | | | mmol/L | [facility] | | | | | | MEDICAL | | | | | | CENTER - | | | | | | LABORATORY | | + + + + + + | K | 3.6 | 3.4 - 5.1 | [facility] | | | | | mmol/L | [facility] | | | | | | MEDICAL | | | | | | CENTER - | | | | | | LABORATORY | | + + + + + + | Cl | 108 (H) | 98 - 107 mmol/L | [facility] | | | | | | [facility] | | | | | | MEDICAL | | | | | | CENTER - | | | | | | LABORATORY | | + + + + + + | CO2 | 30 | 20 - 31 mmol/L | [facility] | | | | | | [facility] | | | | | | MEDICAL | | | | | | CENTER - | | | | | | LABORATORY | | + + + + + + | Anion Gap | 6 | 3 - 16 mmol/L | [facility] | | | | | | [facility] | | | | | | MEDICAL | | | | | | CENTER - | | | | | | LABORATORY | | + + + + + + | Glucose | 97 | 60 - 106 mg/dL | [facility] | | | | | | [facility] | | | | | | MEDICAL | | | | | | CENTER - | | | | | | LABORATORY | | + + + + + + | BUN | 39 (H) | 9 - 23 mg/dL | [facility] | | | [facility] | | | | | | [facility] | | | | | | C[facility] - | | | | | | LABORATORY | | + + + + + + | Creatinine | 1.06 (H) | 0.55 - 1.02 | [facility] | | | | | mg/dL | [facility] | | | | | | MEDICAL | | | | | | CENTER - | | | | | | LABORATORY | | + + + + + + | eGFR if not | 49 (L)Comment: | >=60 | [facility] | | | | GLOMERULAR FILTRATION | mL/min/1.73m2 | [facility] | | | HUNGARIAN | RATE,ESTIMATED | | MEDICAL | | | | mL/min/1.12x4Jjir than | | CENTER - | | | | 60 Chronic kidney | | LABORATORY | | | | disease,if found over a | | | | | | 3-month period.Less than | | | | | | 15 Kidney failureFor | | | | | | | | | | | | Americans,multiply the | | | | | | calculated GFR by 1.21. | | | | | | | | | | + + + + + + | Calcium | 7.8 (L) | 8.7 - 10.4 | [facility] | | | | | mg/dL | [facility] | | | | | | MEDICAL | | | | | | CENTER - | | | | | | LABORATORY | | + + + + + + | Albumin | 2.5 (L) | 3.2 - 4.8 g/dL | [facility] | | | | | | [facility] | | | | | | MEDICAL | | | | | | CENTER - | | | | | | LABORATORY | | + + + + + + | Bilirubin | 0.6 | 0.3 - 1.2 mg/dL | [facility] | | | Total | | | [facility] | | | | | | MEDICAL | | | | | | CENTER - | | | | | | LABORATORY | | + + + + + + | Total | 5.1 (L) | 5.7 - 8.2 g/dL | [facility] | | | Protein | | | [facility] | | | | | | MEDICAL | | | | | | CENTER - | | | | | | LABORATORY | | + + + + + + | AST | 21 | 0 - 34 U/L | [facility] | | | | | | [facility] | | | | | | MEDICAL | | | | | | CENTER - | | | | | | LABORATORY | | + + + + + + | ALT | 12 | 10 - 49 U/L | [facility] | | | | | | [facility] | | | | | | MEDICAL | | | | | | CENTER - | | | | | | LABORATORY | | + + + + + + | Alkaline | 132 (H) | 46 - 116 U/L | [facility] | | | Phosphatase | | | [facility] | | | | | | MEDICAL | | | | | | CENTER - | | | | | | LABORATORY | | + + + + + + | Globulin | 2.6 | 2.1 - 3.8 g/dL | [facility] | | | | | | [facility] | | | | | | MEDICAL | | | | | | CENTER - | | | | | | LABORATORY | | + + + + + + | Albumin/Sarika | 1.0 | 0.8 - 1.9 | [facility] | | | bulin Ratio | | | [facility] | | | | | | MEDICAL | | | | | | CENTER - | | | | | | LABORATORY | | + + + + + + | BUN/Creatin | 36.8 | | [facility] | | | ine Ratio | | | [facility] | | | | | | MEDICAL | | | | | | CENTER - | | | | | | LABORATORY | | + + + + + + + + | Specimen | + + | Blood | + + + + + + + | Performing | Address | City/State/Zipcode | Phone Number | | Organization | | | | + + + + + | [facility] | [address] | [place] | [phone] | | [facility] | | [address] | | | - LABORATORY | | | | + + + + + CBC with Differential (01/31/2020 9:07 AM PDT) + + + + + + | Component | Value | Ref Range | Performed | Pathologist | | | | | At | Signature | + + + + + + | WBC | 14.3 (H) | 4.0 - 11.0 K/uL | [facility] | | | | | | [facility] | | | | | | MEDICAL | | | | | | CENTER - | | | | | | LABORATORY | | + + + + + + | RBC | 3.17 (L) | 3.70 - 5.20 | [facility] | | | | | M/uL | [facility] | | | | | | MEDICAL | | | | | | CENTER - | | | | | | LABORATORY | | + + + + + + | Hemoglobin | 9.4 (L) | 11.5 - 16.0 | [facility] | | | | | g/dL | [facility] | | | | | | MEDICAL | | | | | | CENTER - | | | | | | LABORATORY | | + + + + + + | Hematocrit | 30.4 (L) | 34.0 - 47.0 % | [facility] | | | | | | [facility] | | | | | | MEDICAL | | | | | | CENTER - | | | | | | LABORATORY | | + + + + + + | MCV | 95.9 | 83.0 - 101.0 fL | [facility] | | | | | | [facility] | | | | | | MEDICAL | | | | | | CENTER - | | | | | | LABORATORY | | + + + + + + | MCH | 29.7 | 28.0 - 35.0 pg | [facility] | | | | | | [facility] | | | | | | MEDICAL | | | | | | CENTER - | | | | | | LABORATORY | | + + + + + + | MCHC | 30.9 (L) | 32.0 - 36.0 | [facility] | | | | | g/dL | [facility] | | | | | | MEDICAL | | | | | | CENTER - | | | | | | LABORATORY | | + + + + + + | RDW-CV | 15.5 (H) | <15.0 % | [facility] | | | | | | [facility] | | | | | | MEDICAL | | | | | | CENTER - | | | | | | LABORATORY | | + + + + + + | RDW-SD | 54.0 (H) | 35.1 - 46.3 fL | [facility] | | | | | | [facility] | | | | | | MEDICAL | | | | | | CENTER - | | | | | | LABORATORY | | + + + + + + | Platelet | 185 | 140 - 440 K/uL | [facility] | | | Count | | | [facility] | | | | | | MEDICAL | | | | | | CENTER - | | | | | | LABORATORY | | + + + + + + | MPV | 10.7 | 6.5 - 12.4 fL | [facility] | | | | | | [facility] | | | | | | MEDICAL | | | | | | CENTER - | | | | | | LABORATORY | | + + + + + + | % | 86.4 (H) | 45.0 - 82.0 % | [facility] | | | Neutrophils | | | [facility] | | | | | | MEDICAL | | | | | | CENTER - | | | | | | LABORATORY | | + + + + + + | % | 7.0 (L) | 20.0 - 45.0 % | [facility] | | | Lymphocytes | | | [facility] | | | | | | MEDICAL | | | | | | CENTER - | | | | | | LABORATORY | | + + + + + + | % Monocytes | 5.7 | 4.0 - 12.0 % | [facility] | | | | | | [facility] | | | | | | MEDICAL | | | | | | CENTER - | | | | | | LABORATORY | | + + + + + + | % | 0.1 | 0.0 - 5.0 % | [facility] | | | Eosinophils | | | [facility] | | | | | | MEDICAL | | | | | | CENTER - | | | | | | LABORATORY | | + + + + + + | % Basophils | 0.4 | 0.0 - 1.0 % | [facility] | | | | | | [facility] | | | | | | [facility] | | | | | | CENTER - | | | | | | LABORATORY | | + + + + + + | % Immature | 0.4 | 0.0 - 0.4 % | [facility] | | | Granulocyte | | | [facility] | | | s | | | MEDICAL | | | | | | CENTER - | | | | | | LABORATORY | | + + + + + + | Absolute | 12.32 (H) | 1.80 - 8.50 | [facility] | | | Neutrophils | | K/uL | [facility] | | | | | | MEDICAL | | | | | | CENTER - | | | | | | LABORATORY | | + + + + + + | Absolute | 1.00 | 0.60 - 3.20 | [facility] | | | Lymphocytes | | K/uL | [facility] | | | | | | MEDICAL | | | | | | CENTER - | | | | | | LABORATORY | | + + + + + + | Absolute | 0.82 | 0.00 - 1.00 | [facility] | | | Monocytes | | K/uL | [facility] | | | | | | MEDICAL | | | | | | CENTER - | | | | | | LABORATORY | | + + + + + + | Absolute | 0.02 | 0.00 - 0.40 | [facility] | | | Eosinophils | | K/uL | [facility] | | | | | | MEDICAL | | | | | | CENTER - | | | | | | LABORATORY | | + + + + + + | Absolute | 0.05 | 0.00 - 0.10 | [facility] | | | Basophils | | K/uL | [facility] | | | | | | MEDICAL | | | | | | CENTER - | | | | | | LABORATORY | | + + + + + + | Absolute | 0.06 (H) | 0.00 - 0.03 | [facility] | | | Immature | | K/uL | [facility] | | | Granulocyte | | | MEDICAL | | | s | | | CENTER - | | | | | | LABORATORY | | + + + + + + | % nRBC | 0 | 0 - 2 per 100 | [facility] | | | | | WBCs | [facility] | | | | | | MEDICAL | | | | | | CENTER - | | | | | | LABORATORY | | + + + + + + | Absolute | 0.00 | 0.00 - 0.01 | [facility] | | | nRBC | | K/uL | [facility] | | | | | | MEDICAL | | | | | | CENTER - | | | | | | LABORATORY | | + + + + + + + + | Specimen | + + | Blood | + + + + + + + | Performing | Address | City/State/Zipcode | Phone Number | | Organization | | | | + + + + + | [facility] | [address] | [place] | [phone] | | [facility] | | [address] | | | - LABORATORY | | | | + + + + + Culture, Blood (01/31/2020 9:07 AM PDT) + + + + + + | Component | Value | Ref Range | Performed | Pathologist | | | | | At | Signature | + + + + + + | Culture | No growth after 5 days | | [facility] | | | | incubation. | | [facility] | | | | | | MEDICAL | | | | | | CENTER - | | | | | | LABORATORY | | + + + + + + + + | Specimen | + + | Blood - Peripheral | | blood specimen | | (specimen) | + + + + + + + | Performing | Address | City/State/Zipcode | Phone Number | | Organization | | | | + + + + + | [facility] | [address] | [place] | [phone] | | [facility] | | [id number] | | | - LABORATORY | | | | + + + + + documented in this encounter Visit Diagnoses + + | Diagnosis | + + | Acute metabolic encephalopathy - Primary | + + | Acute respiratory failure with hypoxia (HCC) Acute respiratory failure | + + | Acute systolic congestive heart failure (HCC) Acute systolic heart failure | + + | Elevated troponin I level Other abnormal blood chemistry | + + | Pressure injury of deep tissue of sacral region | + + | Vomiting, persistent, in adult Persistent vomiting | + + | Gastroenteritis Other and unspecified noninfectious gastroenteritis and colitis | + + | Anxiety Anxiety state, unspecified | + + | Severe protein-calorie malnutrition (HCC) Other severe protein-calorie malnutrition | + + | Goals of care, counseling/discussion Other specified counseling | + + | Palliative care by specialist | + + | 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) Acute on chronic | | combined systolic and diastolic heart failure | + + | Chronic obstructive pulmonary disease, unspecified COPD type (HCC) | + + | Moderate protein-calorie malnutrition (HCC) Malnutrition of moderate degree | + + | Impaired mobility Other ill-defined conditions | + + | Low back pain, unspecified back pain laterality, unspecified chronicity, unspecified | | whether sciatica present | + + | Muscular deconditioning Muscular wasting and disuse atrophy, not elsewhere classified | + + | Dysphagia, unspecified type | + + | Generalized osteoarthritis Generalized osteoarthrosis, unspecified site | + + | medical terminologist prescription opiate use | + + documented in this encounter Admitting Diagnoses + + | Diagnosis | + + | Pressure injury of deep tissue of sacral region | + + | Acute systolic congestive heart failure (HCC) Acute systolic heart failure | + + | Acute respiratory failure with hypoxia (HCC) Acute respiratory failure | + + documented in this encounter Administered Medications + +--------+ +--------+------+------+ | Medication Order | MAR | Action | Dose | Rate | Site | | | Action | Date | | | | + +--------+ +--------+------+------+ | acetaminophen (TYLENOL) tablet | Given | 02/07/20 | 650 mg | | | | 650 mg 650 mg, Oral, EVERY 6 | | 20 3:12 | | | | | HOURS PRN, Pain, Fever, | | PM PDT | | | | | Headaches, Starting 01/31/20 | | | | | | | at 2311 | | | | | | + +--------+ +--------+------+------+ +-------+ +--------+---+---+ | Given | 02/03/20 | 650 mg | | | | | 20 6:46 | | | | | | AM PDT | | | | +-------+ +--------+---+---+ | Given | 02/02/20 | 650 mg | | | | | 20 9:04 | | | | | | PM PDT | | | | +-------+ +--------+---+---+ +---+---+ | | | +---+---+ + +-------+ +--------+---+---+ | acetaminophen (TYLENOL) tablet | Given | 02/09/20 | 650 mg | | | | 650 mg 650 mg, Oral, 2 TIMES | | 20 9:22 | | | | | DAILY 0800 & 1600, First dose on | | AM PDT | | | | | 02/08/20 at 1045, Acetaminophen | | | | | | | dose not to exceed 2,000 mg from | | | | | | | all sources in 24 hours., | | | | | | + +-------+ +--------+---+---+ +-------+ +--------+---+---+ | Given | 02/08/20 | 650 mg | | | | | 20 6:30 | | | | | | PM PDT | | | | +-------+ +--------+---+---+ +---+---+ | | | +---+---+ + +-------+ +-------+---+---+ | albuterol-ipratropium 2.5-0.5 | Given | 01/31/20 | 3 mLs | | | | mg/3 mL nebulizer solution 3 mL | | 20 1:09 | | | | | 3 mL, Nebulization, RT Once, Mon | | PM PDT | | | | | 01/31/20 at 1255, For 1 dose | | | | | | + +-------+ +-------+---+---+ +---+---+ | | | +---+---+ + +-------+ +-------+---+---+ | albuterol-ipratropium 2.5-0.5 | Given | 02/09/20 | 3 mLs | | | | mg/3 mL nebulizer solution 3 mL | | 20 9:41 | | | | | 3 mL, Nebulization, RT Q6H, First | | AM PDT | | | | | dose on 01/31/20 at 2100 | | | | | | + +-------+ +-------+---+---+ +-------+ +-------+---+---+ | Given | 02/09/20 | 3 mLs | | | | | 20 3:38 | | | | | | AM PDT | | | | +-------+ +-------+---+---+ | Given | 02/08/20 | 3 mLs | | | | | 20 9:32 | | | | | | PM PDT | | | | +-------+ +-------+---+---+ + +---+ | | | + +---+ | albuterol-ipratropium 2.5-0.5 | | | mg/3 mL nebulizer solution 3 mL | | | 3 mL, Nebulization, RT EVERY 4 | | | HOURS PRN, Wheezing, Shortness of | | | Breath, Increased Work of | | | Breathing, Starting 02/05/20 at | | | 0746 | | + +---+ | | | + +---+ + +---------+ +-----+-------+---+ | ampicillin-sulbactam (UNASYN) 3 | New Bag | 02/06/20 | 3 g | 200 | | | g in sodium chloride 0.9% 100 mL | | 20 12:57 | | mL/hr | | | IVPB 3 g, Intravenous, | | AM PDT | | | | | Administer over 30 Minutes, EVERY | | | | | | | 8 HOURS INTERVAL, First dose on | | | | | | | [facility] 02/03/20 at 1200, Activate | | | | | | | system and mix before use., | | | | | | | Indications: Community Acquired | | | | | | | Pneumonia, PURULENT SKIN AND SOFT | | | | | | | TISSUE INFECTION | | | | | | + +---------+ +-----+-------+---+ +---------+ +-----+-------+---+ | New Bag | 02/05/20 | 3 g | 200 | | | | 20 4:33 | | mL/hr | | | | PM PDT | | | | +---------+ +-----+-------+---+ | New Bag | 02/05/20 | 3 g | 200 | | | | 20 9:01 | | mL/hr | | | | AM PDT | | | | +---------+ +-----+-------+---+ +---+---+ | | | +---+---+ + +-------+ +-------+---+---+ | aspirin chewable tablet 81 mg | Given | 02/04/20 | 81 mg | | | | 81 mg, Oral, DAILY, First dose on | | 20 10:59 | | | | | e 02/01/20 at 0900 | | AM PDT | | | | + +-------+ +-------+---+---+ +-------+ +-------+---+---+ | Given | 02/03/20 | 81 mg | | | | | 20 8:12 | | | | | | AM PDT | | | | +-------+ +-------+---+---+ | Given | 02/02/20 | 81 mg | | | | | 20 8:08 | | | | | | AM PDT | | | | +-------+ +-------+---+---+ +---+---+ | | | +---+---+ + +-------+ +-------+---+---+ | atorvaSTATin (LIPITOR) tablet | Given | 02/08/20 | 20 mg | | | | 20 mg 20 mg, Oral, NIGHTLY, | | 20 8:11 | | | | | First dose on Tu02/01/20 at 2100 | | PM PDT | | | | + +-------+ +-------+---+---+ +-------+ +-------+---+---+ | Given | 02/07/20 | 20 mg | | | | | 20 8:34 | | | | | | PM PDT | | | | +-------+ +-------+---+---+ | Given | 02/06/20 | 20 mg | | | | | 20 9:14 | | | | | | PM PDT | | | | +-------+ +-------+---+---+ +---+---+ | | | +---+---+ + +-------+ +--------+---+---+ | barium (E-Z-HD) 98% contrast | Given | 02/02/20 | 10 mLs | | | | suspension 10 mL 10 mL, Oral, | | 20 12:07 | | | | | ONCE PRN, Other, Starting Wed | | PM PDT | | | | | 02/02/20 at 1205, For 1 dose, | | | | | | | Shake well., | | | | | | + +-------+ +--------+---+---+ +---+---+ | | | +---+---+ + +-------+ +--------+---+---+ | barium (LIQUID E-Z-PAQUE) 60% | Given | 02/02/20 | 20 mLs | | | | contrast suspension 20 mL 20 mL, | | 20 12:06 | | | | | Oral, ONCE PRN, Other, Starting | | PM PDT | | | | | 02/02/20 at 1206, For 1 dose, | | | | | | | Shake well., | | | | | | + +-------+ +--------+---+---+ +---+---+ | | | +---+---+ + +-------+ +--------+---+---+ | barium (LIQUID E-Z-PAQUE) 60% | Given | 02/03/20 | 55 mLs | | | | contrast suspension 55 mL 55 mL, | | 20 9:24 | | | | | Oral, ONCE PRN, Other, Starting | | AM PDT | | | | | Zofia 02/03/20 at 0923, For 1 dose, | | | | | | | Shake well., | | | | | | + +-------+ +--------+---+---+ +---+---+ | | | +---+---+ + +-------+ +-------+---+---+ | barium (VARIBAR PUDDING) 40% | Given | 02/02/20 | 3 mLs | | | | contrast paste 3 mL 3 mL, Oral, | | 20 12:06 | | | | | ONCE PRN, Other, Starting Wed | | PM PDT | | | | | 02/02/20 at 1205, For 1 dose | | | | | | + +-------+ +-------+---+---+ +---+---+ | | | +---+---+ + +-------+ +--------+---+---+ | brimonidine (ALPHAGAN) 0.2% | Given | 02/09/20 | 1 drop | | | | ophthalmic solution 1 drop 1 | | 20 9:24 | | | | | drop, Both Eyes, 2 TIMES DAILY, | | AM PDT | | | | | First dose on 01/31/20 at 2100 | | | | | | + +-------+ +--------+---+---+ +-------+ +--------+---+---+ | Given | 02/08/20 | 1 drop | | | | | 20 8:11 | | | | | | PM PDT | | | | +-------+ +--------+---+---+ | Given | 02/08/20 | 1 drop | | | | | 20 9:03 | | | | | | AM PDT | | | | +-------+ +--------+---+---+ +---+---+ | | | +---+---+ + +-------+ +--------+---+---+ | budesonide (PULMICORT) | Given | 02/09/20 | 0.5 mg | | | | nebulizer solution 0.5 mg 0.5 | | 20 9:41 | | | | | mg, Nebulization, RT BID, First | | AM PDT | | | | | dose on Fri01/31/20 at 2100, RT | | | | | | | will administer. Shake well. | | | | | | | Protect from light. Rinse mouth | | | | | | | after use., | | | | | | + +-------+ +--------+---+---+ +-------+ +--------+---+---+ | Given | 02/08/20 | 0.5 mg | | | | | 20 9:32 | | | | | | PM PDT | | | | +-------+ +--------+---+---+ | Given | 02/08/20 | 0.5 mg | | | | | 20 9:07 | | | | | | AM PDT | | | | +-------+ +--------+---+---+ +---+---+ | | | +---+---+ + +-------+ + +---+---+ | carvedilol (COREG) tablet 3.125 | Given | 02/09/20 | 3.125 mg | | | | mg 3.125 mg, Oral, 2 TIMES | | 20 9:23 | | | | | DAILY WITH BREAKFAST & DINNER, | | AM PDT | | | | | First dose on Fri01/31/20 at | | | | | | | 2014, Hold for sbp < 130 hold for | | | | | | | HR < 60, | | | | | | + +-------+ + +---+---+ +-------+ + +---+---+ | Given | 02/08/20 | 3.125 mg | | | | | 20 6:29 | | | | | | PM PDT | | | | +-------+ + +---+---+ | Given | 02/08/20 | 3.125 mg | | | | | 20 8:57 | | | | | | AM PDT | | | | +-------+ + +---+---+ +---+---+ | | | +---+---+ + +---------+ +---+ +---+ | dextrose 5% (D5W) infusion at | New Bag | 02/04/20 | | 50 mL/hr | | | 50 mL/hr, Intravenous, | | 20 1:19 | | | | | CONTINUOUS, Starting 02/04/20 | | PM PDT | | | | | at 1130, For 10 hours | | | | | | + +---------+ +---+ +---+ +---+---+ | | | +---+---+ + +---------+ +--------+ +---+ | dextrose 5% (D5W) infusion at | New Bag | 02/06/20 | 1,000 | 75 mL/hr | | | 75 mL/hr, Intravenous, | | 20 8:32 | mLs | | | | CONTINUOUS, Starting 02/06/20 | | AM PDT | | | | | at 0745, For 8 hours | | | | | | + +---------+ +--------+ +---+ +---+---+ | | | +---+---+ + +-------+ +--------+---+---+ | dorzolamide (TRUSOPT) 2% | Given | 02/09/20 | 1 drop | | | | ophthalmic solution 1 drop 1 | | 20 9:24 | | | | | drop, Both Eyes, 2 TIMES DAILY, | | AM PDT | | | | | First dose on 01/31/20 at 2100 | | | | | | + +-------+ +--------+---+---+ +-------+ +--------+---+---+ | Given | 02/08/20 | 1 drop | | | | | 20 8:11 | | | | | | PM PDT | | | | +-------+ +--------+---+---+ | Given | 02/08/20 | 1 drop | | | | | 20 9:03 | | | | | | AM PDT | | | | +-------+ +--------+---+---+ +---+---+ | | | +---+---+ + +-------+ +-------+---+---+ | escitalopram (LEXAPRO) tablet | Given | 02/07/20 | 10 mg | | | | 10 mg 10 mg, Oral, DAILY, First | | 20 8:59 | | | | | dose (after last modification) on | | AM PDT | | | | | 02/06/20 at 0900 | | | | | | + +-------+ +-------+---+---+ +-------+ +-------+---+---+ | Given | 02/06/20 | 10 mg | | | | | 20 8:31 | | | | | | AM PDT | | | | +-------+ +-------+---+---+ +---+---+ | | | +---+---+ + +-------+ +-------+---+---+ | escitalopram (LEXAPRO) tablet | Given | 02/09/20 | 15 mg | | | | 15 mg 15 mg, Oral, DAILY, First | | 20 9:06 | | | | | dose (after last modification) on | | AM PDT | | | | | 02/08/20 at 0900 | | | | | | + +-------+ +-------+---+---+ +-------+ +-------+---+---+ | Given | 02/08/20 | 15 mg | | | | | 20 8:57 | | | | | | AM PDT | | | | +-------+ +-------+---+---+ +---+---+ | | | +---+---+ + +-------+ +------+---+---+ | escitalopram (LEXAPRO) tablet 5 | Given | 02/05/20 | 5 mg | | | | mg 5 mg, Oral, DAILY, First | | 20 8:40 | | | | | dose on Fri02/01/20 at 1515 | | AM PDT | | | | + +-------+ +------+---+---+ +-------+ +------+---+---+ | Given | 02/04/20 | 5 mg | | | | | 20 11:00 | | | | | | AM PDT | | | | +-------+ +------+---+---+ | Given | 02/03/20 | 5 mg | | | | | 20 8:12 | | | | | | AM PDT | | | | +-------+ +------+---+---+ +---+---+ | | | +---+---+ + +-------+ +-------+---+---+ | famotidine (PEPCID) injection | Given | 02/09/20 | 20 mg | | | | 20 mg 20 mg, Intravenous, DAILY, | | 20 9:24 | | | | | First dose on Fri01/31/20 at | | AM PDT | | | | | 2014, Dilute 2 mL of famotidine | | | | | | | with 8 mL of normal saline to a | | | | | | | final concentration of 2 mg/mL. | | | | | | | Administer ordered dose over a | | | | | | | period of at least 2 minutes., | | | | | | + +-------+ +-------+---+---+ +-------+ +-------+---+---+ | Given | 02/08/20 | 20 mg | | | | | 20 8:58 | | | | | | AM PDT | | | | +-------+ +-------+---+---+ | Given | 02/07/20 | 20 mg | | | | | 20 9:01 | | | | | | AM PDT | | | | +-------+ +-------+---+---+ +---+---+ | | | +---+---+ + +-------+ +--------+---+---+ | ferrous sulfate tablet 325 mg | Given | 02/09/20 | 325 mg | | | | 325 mg, Oral, 2 TIMES DAILY WITH | | 20 9:23 | | | | | BREAKFAST & DINNER, First dose on | | AM PDT | | | | | 02/06/20 at 0830 | | | | | | + +-------+ +--------+---+---+ +-------+ +--------+---+---+ | Given | 02/08/20 | 325 mg | | | | | 20 6:30 | | | | | | PM PDT | | | | +-------+ +--------+---+---+ | Given | 02/08/20 | 325 mg | | | | | 20 8:57 | | | | | | AM PDT | | | | +-------+ +--------+---+---+ +---+---+ | | | +---+---+ + +-------+ +-------+---+---+ | furosemide (LASIX) injection 20 | Given | 02/02/20 | 20 mg | | | | mg 20 mg, Intravenous, 2 TIMES | | 20 7:57 | | | | | DAILY 0800 & 1600, First dose on | | AM PDT | | | | | 02/01/20 at 0800 | | | | | | + +-------+ +-------+---+---+ +-------+ +-------+---+---+ | Given | 02/01/20 | 20 mg | | | | | 20 3:31 | | | | | | PM PDT | | | | +-------+ +-------+---+---+ | Given | 02/01/20 | 20 mg | | | | | 20 8:46 | | | | | | AM PDT | | | | +-------+ +-------+---+---+ +---+---+ | | | +---+---+ + +-------+ +-------+---+---+ | furosemide (LASIX) injection 40 | Given | 01/31/20 | 40 mg | | | | mg 40 mg, Intravenous, ONCE, | | 20 3:07 | | | | | 01/31/20 at 1455, For 1 dose | | PM PDT | | | | + +-------+ +-------+---+---+ +---+---+ | | | +---+---+ + +-------+ +-------+---+---+ | furosemide (LASIX) tablet 20 mg | Given | 02/05/20 | 20 mg | | | | 20 mg, Oral, 2 TIMES DAILY 0800 | | 20 4:43 | | | | | & 1600, First dose on Wed | | PM PDT | | | | | 02/02/20 at 1600 | | | | | | + +-------+ +-------+---+---+ +-------+ +-------+---+---+ | Given | 02/05/20 | 20 mg | | | | | 20 8:41 | | | | | | AM PDT | | | | +-------+ +-------+---+---+ | Given | 02/04/20 | 20 mg | | | | | 20 5:24 | | | | | | PM PDT | | | | +-------+ +-------+---+---+ +---+---+ | | | +---+---+ + +-------+ +-------+---+---+ | furosemide (LASIX) tablet 20 mg | Given | 02/07/20 | 20 mg | | | | 20 mg, Oral, DAILY, First dose | | 20 8:59 | | | | | (after last modification) on Sun | | AM PDT | | | | | 02/06/20 at 0900 | | | | | | + +-------+ +-------+---+---+ +-------+ +-------+---+---+ | Given | 02/06/20 | 20 mg | | | | | 20 8:31 | | | | | | AM PDT | | | | +-------+ +-------+---+---+ +---+---+ | | | +---+---+ + +-------+ +-------+---+---+ | furosemide (LASIX) tablet 20 mg | Given | 02/09/20 | 20 mg | | | | 20 mg, Oral, 2 TIMES DAILY 0800 | | 20 9:23 | | | | | & 1600, First dose (after last | | AM PDT | | | | | modification) on Fri02/07/20 at | | | | | | | 1830 | | | | | | + +-------+ +-------+---+---+ +-------+ +-------+---+---+ | Given | 02/08/20 | 20 mg | | | | | 20 6:30 | | | | | | PM PDT | | | | +-------+ +-------+---+---+ | Given | 02/08/20 | 20 mg | | | | | 20 8:57 | | | | | | AM PDT | | | | +-------+ +-------+---+---+ +---+---+ | | | +---+---+ + +-------+ +--------+---+ + | heparin 5,000 units/mL | Given | 02/04/20 | 5,000 | | Abdomen- | | injection 5,000 Units 5,000 | | 20 8:55 | Units | | LLQ | | Units, Subcutaneous, EVERY 12 | | PM PDT | | | | | HOURS (2 times per day), First | | | | | | | dose on 01/31/20 at 2100 | | | | | | + +-------+ +--------+---+ + +-------+ +--------+---+ + | Given | 02/04/20 | 5,000 | | Abdomen- | | | 20 11:02 | Units | | RUQ | | | AM PDT | | | | +-------+ +--------+---+ + | Given | 02/03/20 | 5,000 | | Abdomen- | | | 20 8:30 | Units | | LUQ | | | PM PDT | | | | +-------+ +--------+---+ + +---+---+ | | | +---+---+ + +-------+ + +---+---+ | HYDROcodone-acetaminophen | Given | 02/09/20 | 1 tablet | | | | (NORCO) 5-325 mg per tablet 1-2 | | 20 11:29 | | | | | tablet 1-2 tablet, Oral, EVERY 6 | | AM PDT | | | | | HOURS PRN, Pain, Starting Zofia | | | | | | | 02/03/20 at 0951 | | | | | | + +-------+ + +---+---+ +-------+ + +---+---+ | Given | 02/09/20 | 1 tablet | | | | | 20 5:18 | | | | | | AM PDT | | | | +-------+ + +---+---+ | Given | 02/08/20 | 1 tablet | | | | | 20 12:35 | | | | | | PM PDT | | | | +-------+ + +---+---+ +---+---+ | | | +---+---+ + +-------+ +------+---+---+ | HYDROmorphone (DILAUDID) | Given | 01/31/20 | 1 mg | | | | injection 1 mg 1 mg, | | 20 12:25 | | | | | Intravenous, ONCE, 01/31/20 at | | PM PDT | | | | | 1220, For 1 dose | | | | | | + +-------+ +------+---+---+ +---+---+ | | | +---+---+ + +-------+ +--------+---+---+ | iohexol (OMNIPAQUE 350) 350 | Given | 01/31/20 | 80 mLs | | | | mg/mL injection 80 mL 80 mL, | | 20 10:27 | | | | | Intravenous, ONCE PRN, Other, for | | AM PDT | | | | | imaging CT study, Starting Mon | | | | | | | 01/31/20 at 1027, For 1 dose, | | | | | | | Radiology | | | | | | + +-------+ +--------+---+---+ +---+---+ | | | +---+---+ + +-------+ +---------+---+---+ | lactobacillus GG (CULTURELLE) | Given | 02/09/20 | 1 | | | | capsule 1 capsule 1 capsule, | | 20 9:22 | capsule | | | | Oral, 2 TIMES DAILY, First dose | | AM PDT | | | | | on 01/31/20 at 2100, | | | | | | | Probiotics added by pharmacy per | | | | | | | P&T protocol Do not open or | | | | | | | crush., | | | | | | + +-------+ +---------+---+---+ +-------+ +---------+---+---+ | Given | 02/08/20 | 1 | | | | | 20 8:11 | capsule | | | | | PM PDT | | | | +-------+ +---------+---+---+ | Given | 02/08/20 | 1 | | | | | 20 8:57 | capsule | | | | | AM PDT | | | | +-------+ +---------+---+---+ +---+---+ | | | +---+---+ + +-------+ +--------+---+---+ | latanoprost (XALATAN) 0.005% | Given | 02/08/20 | 1 drop | | | | ophthalmic solution 1 drop 1 | | 20 8:10 | | | | | drop, Both Eyes, NIGHTLY, First | | PM PDT | | | | | dose on Fri01/31/20 at 2100 | | | | | | + +-------+ +--------+---+---+ +-------+ +--------+---+---+ | Given | 02/07/20 | 1 drop | | | | | 20 8:34 | | | | | | PM PDT | | | | +-------+ +--------+---+---+ | Given | 02/06/20 | 1 drop | | | | | 20 9:18 | | | | | | PM PDT | | | | +-------+ +--------+---+---+ +---+---+ | | | +---+---+ + +---------+ +--------+-------+---+ | levoFLOXacin in dextrose | New Bag | 02/02/20 | 500 mg | 100 | | | (LEVAQUIN) IVPB 500 mg 500 mg, | | 20 10:19 | | mL/hr | | | Intravenous, Administer over 60 | | AM PDT | | | | | Minutes, DAILY, First dose on Fri | | | | | | | 02/01/20 at 0900, Indications: | | | | | | | cap | | | | | | + +---------+ +--------+-------+---+ +---------+ +--------+-------+---+ | New Bag | 02/01/20 | 500 mg | 100 | | | | 20 8:48 | | mL/hr | | | | AM PDT | | | | +---------+ +--------+-------+---+ +---+---+ | | | +---+---+ + +---------+ +--------+-------+---+ | levoFLOXacin in dextrose | New Bag | 01/31/20 | 750 mg | 100 | | | (LEVAQUIN) IVPB 750 mg 750 mg, | | 20 9:44 | | mL/hr | | | Intravenous, Administer over 90 | | AM PDT | | | | | Minutes, ONCE, 01/31/20 at | | | | | | | 0940, For 1 dose, Indications: | | | | | | | UTI - UPPER | | | | | | + +---------+ +--------+-------+---+ +---+---+ | | | +---+---+ + +-------+ +------+---+---+ | ondansetron (ZOFRAN) injection | Given | 01/31/20 | 4 mg | | | | 4 mg 4 mg, Intravenous, ONCE, | | 20 12:22 | | | | | 01/31/20 at 1225, For 1 dose | | PM PDT | | | | + +-------+ +------+---+---+ +---+---+ | | | +---+---+ + +-------+ +--------+---+---+ | potassium chloride (Klor-Con | Given | 02/02/20 | 40 mEq | | | | M20) ER tablet 40 mEq 40 mEq, | | 20 12:32 | | | | | Oral, ONCE, 02/02/20 at 1145, | | PM PDT | | | | | For 1 dose | | | | | | + +-------+ +--------+---+---+ +---+---+ | | | +---+---+ + +-------+ +-------+---+---+ | predniSONE (DELTASONE) tablet | Given | 02/09/20 | 10 mg | | | | 10 mg 10 mg, Oral, DAILY, First | | 20 9:06 | | | | | dose on 4/28/20 at 1515 | | AM PDT | | | | + +-------+ +-------+---+---+ +-------+ +-------+---+---+ | Given | 02/08/20 | 10 mg | | | | | 20 8:57 | | | | | | AM PDT | | | | +-------+ +-------+---+---+ | Given | 02/07/20 | 10 mg | | | | | 20 8:59 | | | | | | AM PDT | | | | +-------+ +-------+---+---+ +---+---+ | | | +---+---+ + +---------+ +--------+-------+---+ | sodium chloride 0.9% (NS) bolus | New Bag | 01/31/20 | 1,000 | 4000 | | | 1,000 mL 1,000 mL, Intravenous, | | 20 9:51 | mLs | mL/hr | | | Administer over 15 Minutes, | | AM PDT | | | | | ONCE, 01/31/20 at 0945, For 1 | | | | | | | dose | | | | | | + +---------+ +--------+-------+---+ +---+---+ | | | +---+---+ + +-------+ + +---+---+ | sulfamethoxazole-trimethoprim | Given | 02/09/20 | 1 tablet | | | | (BACTRIM DS) 800-160 mg per | | 20 9:23 | | | | | tablet 1 tablet 1 tablet, Oral, | | AM PDT | | | | | 2 TIMES DAILY, First dose on Sun | | | | | | | 02/06/20 at 0900, Indications: | | | | | | | NON-PURULENT SKIN AND SOFT TISSUE | | | | | | | INFECTION | | | | | | + +-------+ + +---+---+ +-------+ + +---+---+ | Given | 02/08/20 | 1 tablet | | | | | 20 8:11 | | | | | | PM PDT | | | | +-------+ + +---+---+ | Given | 02/08/20 | 1 tablet | | | | | 20 8:57 | | | | | | AM PDT | | | | +-------+ + +---+---+ +---+---+ | | | +---+---+ + +---------+ +-----+--------+---+ | vancomycin 1 g in sodium | New Bag | 02/05/20 | 1 g | 166.7 | | | chloride 0.9% 250 mL IVPB 1 g, | | 20 12:30 | | mL/hr | | | Intravenous, Administer over 90 | | PM PDT | | | | | Minutes, EVERY 24 HOURS INTERVAL, | | | | | | | First dose on Fri02/03/20 at | | | | | | | 1100, Activate system and mix | | | | | | | before use., Indications: | | | | | | | Community Acquired Pneumonia, | | | | | | | PURULENT SKIN AND SOFT TISSUE | | | | | | | INFECTION | | | | | | + +---------+ +-----+--------+---+ +---------+ +-----+--------+---+ | New Bag | 02/04/20 | 1 g | 166.7 | | | | 20 11:52 | | mL/hr | | | | AM PDT | | | | +---------+ +-----+--------+---+ | New Bag | 02/03/20 | 1 g | 166.7 | | | | 20 12:10 | | mL/hr | | | | PM PDT | | | | +---------+ +-----+--------+---+ +---+---+ | | | +---+---+ documented in this encounter Additional Health Concerns + + + + | Infection | Noted Time | Resolved Time | + + + + | Methicillin-resistant Staphylococcus aureus | 06/08/2019 9:39 AM | | | | PDT | | + + + + | Rule out COVID-19 | 01/31/2020 9:34 AM | 01/31/2020 7:42 PM | | | PDT | PDT | + + + + | Rule out Respiratory Infection | 01/31/2020 12:55 PM | 01/31/2020 3:57 PM | | | PDT | PDT | + + + + | Rule out Gastroenteritis | 01/31/2020 7:49 PM | 02/01/2020 2:44 PM | | | PDT | PDT | + + + + | Rule out C. Difficile | 01/31/2020 7:49 PM | 02/01/2020 12:10 PM | | | PDT | PDT | + + + + documented as of this encounter
--- OUTSIDE RECORDS SUMMARY | ~2020-03-14 | XMS | Encounter Summary ---
Demographics + + + | Address | [address] | | | [place] [address] | + + + | Home Phone | | + + + | Preferred Language | Unknown | + + + | Marital Status | | + + + | Baptist Affiliation | Unknown | + + + | Race | Unknown | + + + | Ethnic Group | Unknown | + + + Author + + + | Author | [facility] | | | and [place] | + + + | Organization | [facility] | | [...] Team Providers + +------+ + | Care Legal Services Manager Name | Role | Phone | + [...] | +--------+ + + + + | 09/20/ | Home Care | [facility] [place] | Sam Quintanilla, | PT REPEAT VISIT | | 2019 | Visit | [place] [address] | MANAGER SPECIALTY [address] | | | | | [place] | [place] | | | | | [address] | [address] | | | | | [phone] | | | +--------+ + + + + Social History + + + +--------+ + | Tobacco Use | Types | Packs/Day | Years | Date | | | | | Used | | + + + +--------+ + | Former Smoker | Cigarettes | | | 1945 - 1969 | + + + +--------+ + + [...] this encounter Last Filed Vital Signs + +---------+ + + | Vital Sign | Reading | Time Taken | Comments | + +---------+ + + | Blood Pressure | 140/80 | 09/20/2019 10:30 AM | | | | | PST | | + +---------+ + + | Pulse | 85 | 09/20/2019 10:30 AM | | | | | PST | | + +---------+ + + | Temperature | - | - | | + +---------+ + + | Respiratory Rate | - | - | | + +---------+ + + | Oxygen Saturation | 96% | 09/20/2019 10:30 AM | on 2 lit O2 | | | | PST | | + +---------+ + + | Inhaled Oxygen | - | - | | | Concentration | | | | + +---------+ + + | Weight | - | - | | + +---------+ + + | Height | - | - | | + +---------+ + + | Body Mass Index | - | - | | + +---------+ + + documented in this encounter Plan of Treatment +--------+ + + + + | Date | Type | Specialty | Care Team | Description | +--------+ + + + + | 03/23/ | Office | Anticoagulation | García Harris, | | | 2019 | Visit | | [facility] [address] | | | | | | [place] | | | | | | [address] | | | | | | | | +--------+ + + + + | 04/11/ | Appointment | Radiology | Shawn Michael | | | 2019 | | | MD [address] | | | | | | [address] [place] | | | | | | [place] [address] | | | | | | [phone] | | | | | | | | +--------+ + + + + | 04/13/ | Office | Cardiology | Shawn Michael | | | 2019 | Visit | | MD [address] | | | | | | [address] [place] | | | | | | [place] [address] | | | | | | [phone] | | | | | | | [...] + | HH PT IMPAIRED | Impaired strength | | | 1 goal | 1 goal | | STRENGTH | | 08/31/ | Active | linked [...] interventio | | Physical Therapy | | 2018 | | scheduled/d | n | | | | | | ocumented | scheduled/d | | | | | | interventio | ocumented | | | | | | n | in this | | | | | | | visit | + + +--------+--------+ + + | HH SHARED PAIN | Pain | | | 1 goal | 1 [...] | | Description: The | GAIT | | | | | patient will | | | | | | ambulate 500+ feet | | | | | | using 4-wheeled | | | | | | walker with | [...] + + +--------+-------+ + | HH PT STRENGTH | HH PT IMPAIRED | | No | | | Description: | STRENGTH | | | | | Patient will be gain | | | | | | LE strength to | | | | | | perform STS 3 times | | | | | | in 30 seconds. | | | | | | Outcomes: The | | | | | | patient's strength | | | | | | will improve so that | | | | | | they can perform | | | | | | transfers, gait and | | | | | | MRADLs safely and | | | | | | independently. | | | | | + + +--------+-------+ + | HH PT TRANSFERS | HH PT IMPAIRED | | No | | | Description: The | TRANSFERS | | | | | patient will perform | | | | | | independent | | | | | | transfers for all | | | | | | household surfaces | [...] No | | | UNDERSTANDING | | | | | | Description: The | | | | | | patient and/or | | | | | | caregiver will | | | | | | verbalize | | | | | | understanding of | | | | | | fall prevention | | | | | | strategies. | | | | | + + +--------+-------+ + | HH PAIN | HH SHARED PAIN | | No | | | Description: The | | | | | | patient will rate | | | | | | chronic pain at 5/10 | | | | | | or less. | | | | | | Outcomes: The | | | | | | patient will be able | | | | | | to gait and | | | | | | transfers with | | | | | | decreased symptoms | | | | | | of pain. | | | | | + [...] gait training using | | | | 2x20 feet on even | | 4-wheeled walker no | | | | surfaces, completed task | | weight bearing | | | | with supervision. | | restrictions. | | | | Therapist gave VC for | | | | | | improved postural | | | | | | mechanics and normalized | | | | | | loading mechanics | | | | | | through ankles and hips. | | | | | | MANAGER SPECIALTY notes ongoing | | | | | | deficits: poor endurance | | | | | | and BLE weekness that | | | | | | put pt at risk of fall, | | | | | | that will continue to be | | | | | | addressed in future | | | | | | visits. | + + +--------+--------+ + | PT therapeutic | Problem: PT | | | MANAGER SPECIALTY instructed, | | exercise | IMPAIRED | Comple | | performed and reviewed | | Description: | STRENGTHGoal: PT | yoel | | HEP with pt for LE | | Evaluate and | STRENGTH | | | strengthening and ROM. | | instruct the patient | | | | Written materials left | | and/or caregiver | | | | for pt to use for | | and provide home | | | | recall. Pt demonstrates | | exercise program to | | | | fair understanding, | | restore maximal | | | | needs occasional prompts | | functional strength. | | | | and cues for form. | + + +--------+--------+ + | PT transfer | Problem: PT | | | Used STS as a | | training | IMPAIRED | Comple | | functional task specific | | Description: | TRANSFERSGoal: PT | yole | | training exercise for | | Evaluate and | TRANSFERS | | | LE strengthening-lowered | | instruct patient | | | | height and removed UE | | and/or caregiver in | | | | support to increase | | safe transfers using | | | | difficulty until pt | | appropriate body | | | | demos failure before 10 | | mechanics and | | | | reps to ensure adequate | | necessary equipment. | | | | training stimulus for | | | | | | optimal LE | | | | | | strengthening. pt | | | | | | completed 4 reps from | | | | | | regular surface with | | | | | | use of hands. | + + +--------+--------+ + | HH PULSE OXIMETRY | Problem: PULSE | | | | | Description: | OXIMETRYGoal: Pulse | Comple | | | | Assess oxygen | oximetry parameters | yoel | | | | saturation via pulse | | | | | | oximetry: Frequency | | | | | | PRN, Reason SOB. | | | | | | Notify physician if | | | | | | saturation level is | | | | | | less than 90%. | | | | | + + +--------+--------+ + | Instruct in Fall | Problem: HH SHARED | | | MANAGER SPECIALTY educated pt on | | Prevention | FALLSGoal: FALL | Comple | | general fall [...] | walkways. | + + +--------+--------+ + | Monitor and | Problem: SHARED | | | | | Address Pain | PAINGoal: PAIN | Comple | | | | Description: | | yoel | | | | Monitor and address | | | | | | pain through 0-10 | | | | | | pain scale. | | | | | + + +--------+--------+ + documented in this encounter"
--- OUTSIDE RECORDS SUMMARY | ~2020-03-14 | XMS | Encounter Summary ---
Demographics + + + | Address | [address] | | | [place] [address] | + + + | Home Phone | | + + + | Preferred Language | Unknown | + + + | Marital Status | | + + + | Presybeterian Affiliation | Unknown | + + + | Race | Unknown | + + + | Ethnic Group | Unknown | + + + Author + + + | Author | [facility] | | | and [place] | + + + | Organization | [facility] | | [...] Team Providers + +------+ + | Care Interior Design Professor Name | Role | Phone | + +------+ + | Candido Link | PCP | | | MD | | | + +------+ + Reason for Referral Evaluate & Treat (Emergency) + + + + + + + | Status | Reason | Specialty | Diagnoses / | Referred By | Referred To | | | | | Procedures | Contact | Contact | + + + + + + + | Authorized | Specialty | Gastroenterol | Diagnoses | | Citl[facility], | | | Services | ogy | Iron | [facility] | John Mora, | | | Required | | deficiency | i, | [address] | | | | | anemia | [place] | [address] | | | | | secondary to | , [address] | [place], | | | | | blood loss | [address] | [place] [address] | | | | | (chronic) | [place], | Phone: | | | | | Gastrointest | [place] | [phone] | | | | | inal | [address] | Fax: | | | | | hemorrhage, | Phone: | [phone] | | | | | unspecified | [phone] | | | | | | gastrointest | Fax: | | | | | | inal | [phone] | | | | | | hemorrhage | | | | | | | type | | | | | | | Procedures | | | | | | | PASSEN[facility] OFFICE | | | | | | | VISIT [facility] | | | | | | | IF PT REQS | | | | | | | VERY FRAIL | | | + + + + + + + Reason for Visit + + + | Reason | Comments | + + + | Referral | | + + + Encounter Details +--------+ + + + + | Date | Type | Department | Care Team | Description | +--------+ + + + + | 03/07/ | Telephone | [facility] | Nikolay, | Referral | | 2019 | | MEDICINE [address] [place] [address] | MD Candido | | | | | [facility] | [address] [place] [address] | | | | | [place] [address] | [place] [address] | | | | | [phone] | [phone] | | | | | | | [...] | | 2019 | Visit | | [employer] [employer] [address] | | | | | | [place] | | | | | | [address] | | | | | | | | +--------+ + + + + | 04/11/ | Appointment | Radiology | Shawn Michael | | | 2019 | | | MD [address] | | | | | | [address] [place] | | | | | | [place] [address] | | | | | | [phone] | | | | | | | | +--------+ + + + + | 04/13/ | Office | Cardiology | Shawn Michael | | | 2019 | Visit | | MD [address] | | | | | | [address] [place] | | | | | | [place] [address] | | | | | | [phone] | | | | | | | | +--------+ + + + + + + +--------+ + + | Name | Type | Priori | Associated Diagnoses | Order Schedule | | | | ty | | | + + +--------+ + + | * [facility] | Outpatient | STAT | Iron deficiency | Expected: | | Gastroenterology - | Referral | | anemia secondary to | 03/07/2020, Expires: | | AMB Referral | | | blood loss (chronic) | 03/07/2021 | | | | | Gastrointestinal | | | | | | hemorrhage, | | | | | | unspecified | | | | | | gastrointestinal | | | | | | hemorrhage type | | + + +--------+ + + documented as of this encounter Visit Diagnoses + + | Diagnosis | + + | 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
--- OUTSIDE RECORDS SUMMARY | ~2020-03-14 | XMS | Clinical Summary ---
Demographics + + + | Address | [address] | | | [place] [address] | + + + | Home Phone | | + + + | Preferred Language | Unknown | + + + | Marital Status | | + + + | Roman Catholic Affiliation | Unknown | + + + | Race | Unknown | + + + | Ethnic Group | Unknown | + + + Author + + + | Author | [facility] | | | and [place] | + + + | Organization | [facility] | | | [...] Team Providers + +------+ + | Care Corrugator Operator Name | Role | Phone | + +------+ + | Candido Link | PCP | | | MD | | | + +------+ + Allergies + + + + + + | Active Allergy | Reactions | Severity | Noted | Comments | | | | | Date | | + + + + + + | Metronidazole | Nausea And Vomiting, | | 08/30/20 | | | | GI Upset | | 19 | | + + + + + + | Oxycodone | Unknown | | 05/31/20 | | | | | | 19 | | + + + + + + | Pregabalin | Unknown | | 06/13/20 | Lyrica | | | | | 19 | | + + + + + + Medications + + + +---------+------+------+-------+ | Medication | Sig | Dispensed | Refills | Star | End | Statu | | | | | | t | Date | s | | | | | | Date | | | + + + +---------+------+------+-------+ | nitroglycerin | Place 0.4 mg under | | 0 | | | Activ | | (NITROSTAT) 0.4 mg | the tongue every 5 | | | | | e | | SL tablet | minutes as needed | | | | | | | | for Chest pain. | | | | | | + + + +---------+------+------+-------+ | fluticasone | 1 spray by Nasal | | 0 | | | Activ | | (FLONASE) 50 | route Daily as | | | | | e | | mcg/nasal spray | needed for | | | | | | | | Allergies. | | | | | | + + + +---------+------+------+-------+ | brimonidine | Place 1 drop into | | 12 | 08/1 | | Activ | | (ALPHAGAN) 0.2% | both eyes 2 times | | | /20 | | e | | ophthalmic solution | daily. | | | 19 | | | + + + +---------+------+------+-------+ | dorzolamide | Place 1 drop into | | 12 | 08/1 | | Activ | | (TRUSOPT) 2% | both eyes 2 times | | | 9/20 | | e | | ophthalmic solution | daily. | | | 19 | | | + + + +---------+------+------+-------+ | latanoprost | Place 1 drop into | | 12 | 08/1 | | Activ | | (XALATAN) 0.005% | both eyes nightly. | | | 9/20 | | e | | ophthalmic solution | | | | 19 | | | + + + +---------+------+------+-------+ | polyvinyl alcohol | Place 2 drops into | | 0 | 09/0 | | Activ | | (LIQUITEARS) 1.4% | both eyes every | | | 8/20 | | e | | ophthalmic solution | morning. | | | 19 | | | + + + +---------+------+------+-------+ | Multiple | Take 1 capsule by | | 0 | 09/0 | | Activ | | Vitamins-Minerals | mouth 2 times daily. | | | 8/20 | | e | | (PRESERVISION AREDS | | | | 19 | | | | 2) CAPS | | | | | | | + + + +---------+------+------+-------+ | ferrous sulfate | Take 1 tablet by | 90 | 3 | 06/06 | | Activ | | 325 mg tablet | mouth daily (with | tablet | | 10/25 | | e | | | breakfast). | | | 19 | | | + + + +---------+------+------+-------+ | famotidine | Take 1 tablet by | 90 | 1 | 06/06 | | Activ | | (PEPCID) 40 MG | mouth nightly. | tablet | | 20 | | e | | tablet | | | | 19 | | | + + + +---------+------+------+-------+ | aspirin 81 mg | Take 1 tablet by | 30 | 3 | 06/06 | | Activ | | chewable tablet | mouth Daily. | tablet | | 1/20 | | e | | | | | | 19 | | | + + + +---------+------+------+-------+ | oxygenIndications: | Inhale 3 L into the | 1 | 2 | 09/1 | | Activ | | COPD, severe (HCC), | lungs continuous. | Container | | 10/25 | | e | | Oxygen dependent | ALETHEA: 99 months. | | | 19 | | | + + + +---------+------+------+-------+ | Respiratory | Replacement O2 mask. | 1 each | 0 | 10/3 | | Activ | | Therapy Supplies | Please evaluate and | | | 10/25 | | e | | MISC | provide an O2 mask | | | 19 | | | | | that is more useful | | | | | | | | to the patient. | | | | | | | | Duration: Lifetime | | | | | | | | Dx: COPD, severe | | | | | | | | J44.9 | | | | | | + + + +---------+------+------+-------+ | dicyclomine | Take 1 capsule by | 30 | 0 | 12/0 | | Activ | | (BENTYL) 10 mg | mouth Daily as | capsule | | 4/20 | | e | | capsule | needed for Other (As | | | 19 | | | | | needed for | | | | | | | | abdominal cramps). | | | | | | + + + +---------+------+------+-------+ | senna (SENOKOT) | Take 1 tablet by | 14 | 0 | 12/0 | | Activ | | 8.6 mg tablet | mouth Twice daily | tablet | | /20 | | e | | | as needed for | | | 19 | | | | | Constipation. | | | | | | + + + +---------+------+------+-------+ | ketoconazole | Apply topically 2 | 30 g | 2 | 01/0 | | Activ | | (NIZORAL) 2% | times daily. | | | 06/25 | | e | | creamIndications: | | | | 20 | | | | Tinea cruris | | | | | | | + + + +---------+------+------+-------+ | prochlorperazine | Take 1 tablet by | 30 | 0 | 01/2 | | Activ | | 10 mg tablet | mouth every 8 hours | tablet | | 2/20 | | e | | | as needed. | | | 20 | | | + + + +---------+------+------+-------+ | ondansetron | Take 1 tablet by | 15 | 0 | 01/2 | | Activ | | (ZOFRAN ODT) 4 mg | mouth every 6 hours | tablet | | 2/20 | | e | | disintegrating | as needed for | | | 20 | | | | tablet | Nausea. | | | | | | + + + +---------+------+------+-------+ | calcium carbonate | Chew and swallow 2 | | 0 | | | Activ | | (TUMS) 500 mg | tablets Twice daily | | | | | e | | chewable tablet | as needed for | | | | | | | | Heartburn or | | | | | | | | Indigestion. | | | | | | + + + +---------+------+------+-------+ | cholecalciferol | Take 1,000 Units by | | 0 | | | Activ | | (VITAMIN D-3) 25 mcg | mouth Daily. | | | | | e | | (1,000 units) | | | | | | | | tablet | | | | | | | + + + +---------+------+------+-------+ | Cranberry 600 MG | Take 1 tablet by | | 0 | | | Activ | | TABS | mouth Daily. | | | | | e | + + + +---------+------+------+-------+ | sodium chloride | 2 sprays by Each | | 0 | | | Activ | | (OCEAN) 0.65% nasal | Nare route. two to | | | | | e | | spray | three times daily as | | | | | | | | needed for nasal | | | | | | | | dryness | | | | | | + + + +---------+------+------+-------+ | furosemide (LASIX) | Take 1 tablet by | 60 | 0 | 02/1 | | Activ | | 20 mg tablet | mouth 2 times daily. | tablet | | 9/20 | | e | | | | | | 20 | | | + + + +---------+------+------+-------+ | polyethylene | Take 17 g by mouth | | 0 | 02/2 | | Activ | | glycol (MIRALAX) | Daily as needed for | | | 0/20 | | e | | packet | Constipation. | | | 20 | | | + + + +---------+------+------+-------+ | albuterol 2.5 mg/3 | Take 3 mLs by | 60 vial | 0 | 03/0 | | Activ | | mL nebulizer | nebulization every 4 | | | 6/20 | | e | | solution | hours as needed for | | | 20 | | | | | Wheezing or [...] | needed | | | | | | + + + +---------+------+------+-------+ | atorvaSTATin | TAKE 1 TABLET BY | 90 | 0 | 03/2 | | Activ | | (LIPITOR) 20 mg | MOUTH ONCE DAILY IN | tablet | | 3/20 | | e | | tablet | THE MORNING | | | 20 | | | + + + +---------+------+------+-------+ | UNABLE TO | Powder free | 2 Box | 3 | 03/2 | | Activ | | FINDIndications: | dispoable gloves, | | | 3/20 | | e | | Mixed stress and | size large | | | 20 | | | | urge urinary | | | | | | | | incontinence | | | | | | | + + + +---------+------+------+-------+ | arformoterol | Take 2 mLs by | 120 mL | 3 | 03/3 | | Activ | | (BROVANA) 15 MCG/2ML | nebulization Twice | | | 0/20 | | e | | NEBUIndications: | Daily. Length: | | | 20 | | | | Chronic obstructive | Lifetime, Dx: J44.9 | | | | | | | pulmonary disease, | | | | | | | | unspecified COPD | | | | | | | | type ([facility]) | | | | | | | + + + +---------+------+------+-------+ | cetirizine | Take 1 tablet by | 30 | 1 | 04/0 | | Activ | | (ZYRTEC) 10 mg | mouth once daily | tablet | | 9/20 | | e | | tablet | | | | 20 | | | + + + +---------+------+------+-------+ | budesonide | Take 2 mLs by | 180 mL | 5 | 04/2 | | Activ | | (PULMICORT) 0.5 mg/2 | nebulization 2 times | | | 2/20 | | e | | mL nebulizer | daily. Dx Code | | | 20 | | | | solution | J44.90 | | | | | | + + + +---------+------+------+-------+ | acetaminophen | Take 500 mg by mouth | | 0 | | | Activ | | (TYLENOL) 500 mg | every 6 hours as | | | | | e | | tablet | needed for Pain. | | | | | | + + + +---------+------+------+-------+ | Multiple | Take 1 gummy by | | 0 | | | Activ | | Vitamins-Minerals | mouth daily | | | | | e | | (MULTIVITAMIN | | | | | | | | GUMMIES ADULT PO) | | | | | | | + + + +---------+------+------+-------+ | ascorbic acid | Take 500 mg by mouth | | 0 | | | Activ | | (VITAMIN C) 500 mg | Daily. | | | | | e | | tablet | | | | | | | + + + +---------+------+------+-------+ | calcium, as | Take 600 mg by mouth | | 0 | | | Activ | | carbonate, | daily (with | | | | | e | | (CALTRATE) 600 mg | breakfast). | | | | | | | tablet | | | | | | | + + + +---------+------+------+-------+ | docusate sodium | Take 1 capsule by | 60 | 5 | 05/0 | | Activ | | (COLACE) 250 MG | mouth Twice daily | capsule | | 6/20 | | e | | capsule | as needed for | | | 20 | | | | | Constipation. Hold | | | | | | | | for loose stools | | | | | | + + + +---------+------+------+-------+ | lactobacillus GG | Take 1 capsule by | 20 | 0 | 05/0 | | Activ | | (CULTURELLE) capsule | mouth 2 times daily. | capsule | | 6/20 | | e | | | As probiotic (or | | | 20 | | | | | use some similar OTC | | | | | | | | probiotic) for 10 | | | | | | | | days | | | | | | + + + +---------+------+------+-------+ | escitalopram | Take 1.5 tablets by | 45 | 0 | 05/0 | | Activ | | (LEXAPRO) 10 mg | mouth Daily. | tablet | | 6/20 | | e | | tablet | | | | 20 | | | + + + +---------+------+------+-------+ | predniSONE | Take 1 tablet by | 30 | 5 | 05/0 | | Activ | | (DELTASONE) 10 mg | mouth Daily. | tablet | | 7/20 | | e | | tablet | | | | 20 | | | + + + +---------+------+------+-------+ | collagenase | Apply to the area of | | 0 | 05/2 | | Activ | | (SANTYL) ointment | tissue necrosis | | | 1/20 | | e | | | around the wound | | | 20 | | | | | daily with wound | | | | | | | | care | | | | | | + + + +---------+------+------+-------+ | nystatin | | | 0 | 05/2 | | Activ | | (MYCOSTATIN) [id number] | | | | 20 | | e | | UNIT/GM cream | | | | 20 | | | + + + +---------+------+------+-------+ | carvedilol (COREG) | Take 1 tablet by | 60 | 0 | / | 03/07 | Activ | | 6.25 mg tablet | mouth 2 times daily | tablet | | 05/25 | 04/24 | e | | | (with breakfast & | | | 20 | 20 | | | | dinner) for 30 days. | | | | | | + + + +---------+------+------+-------+ | | Take 1 tablet by | | 0 | | | Activ | | sulfamethoxazole-tri | mouth 2 times daily. | | | | | e | | methoprim (BACTRIM | | | | | | | | DS) 800-160 mg per | | | | | | | | tablet | | | | | | | + + + +---------+------+------+-------+ | metoprolol | Take 25 mg by mouth | | 0 | | | Activ | | succinate | nightly. | | | | | e | | (TOPROL-XL) 25 mg 24 | | | | | | | | hr tablet | | | | | | | + + + +---------+------+------+-------+ | | Take 1 tablet by | 120 | 0 | 06/0 | | Activ | | HYDROcodone-acetamin | mouth every 6 hours | tablet | | 2/20 | | e | | ophen (NORCO) | as needed for Pain. | | | 20 | | | | 7.5-325 mg per | | | | | | | | tabletIndications: | | | | | | | | Generalized | | | | | | | | osteoarthritis, Long | | | | | | | | term prescription | | | | | | | | opiate use | | | | | | | + + + +---------+------+------+-------+ | pantoprazole | TAKE 1 TABLET BY | 90 | 0 | 06/0 | | Activ | | (PROTONIX) 40 mg | MOUTH ONCE DAILY IN | tablet | | 8/20 | | e | | tablet | THE MORNING (BEFORE | | | 20 | | | | | BREAKFAST) | | | | | | + + + +---------+------+------+-------+ | pantoprazole | Take 1 tablet by | 90 | 1 | 06/06 | 06/0 | Disco | | (PROTONIX) 40 mg | mouth every morning | tablet | | / | 8/20 | ntinu | | tablet | (before breakfast). | | | 19 | 20 | ed | + + + +---------+------+------+-------+ | bacitracin 500 | Apply 1 Application | | 0 | | 05/2 | Disco | | UNIT/GM ointment | topically 3 times | | | | 1/20 | ntinu | | | daily. to bedsore on | | | | 20 | ed | | | buttocks | | | | | | + + + +---------+------+------+-------+ | carvedilol (COREG) | Take 6.25 mg by | | 0 | 11/2 | 05/2 | Disco | | 6.25 mg tablet | mouth 2 times daily | | | 3/20 | 8/20 | ntinu | | | (with breakfast & | | | 19 | 20 | ed | | | dinner). | | | | | (Reor | | | | | | | | melani) | + + + +---------+------+------+-------+ | | Take 1 tablet by | 14 | 0 | 05/0 | 05/2 | Disco | | sulfamethoxazole-tri | mouth 2 times daily | tablet | | /20 | 1/20 | ntinu | | methoprim (BACTRIM | for 7 days. | | | 20 | 20 | ed | | DS) 800-160 mg per | Indications: | | | | | | | tabletIndications: | Non-Purulent Skin | | | | | | | NON-PURULENT SKIN | and Soft Tissue | | | | | | | AND SOFT TISSUE | Infection | | | | | | | INFECTION | | | | | | | + + + +---------+------+------+-------+ | | Take 1 tablet by | 28 | 0 | 05/0 | 06/0 | Disco | | HYDROcodone-acetamin | mouth every 6 hours | tablet | | 6/20 | 2/20 | ntinu | | ophen (NORCO) | as needed for Pain. | | | 20 | 20 | ed | | 7.5-325 mg per | | | | | | (Reor | | tabletIndications: | | | | | | melani) | | Generalized | | | | | | | | osteoarthritis, Long | | | | | | | | term prescription | | | | | | | | opiate use | | | | | | | + + + +---------+------+------+-------+ | apixaban (ELIQUIS) | Take 1 tablet by | 60 | 1 | 05/2 | 05/2 | Disco | | 2.5 mg | mouth 2 times daily | tablet | | 1/20 | 8/20 | ntinu | | tabletIndications: | for 67 doses. | | | 20 | 20 | ed | | VTE PE Prophylaxis - | Indications: VTE PE | | | | | | | hip surgery | Prophylaxis - hip | | | | | | | | surgery | | | | | | + + + +---------+------+------+-------+ | | Take 1 tablet by | 20 | 0 | 05/2 | 05/2 | Disco | | sulfamethoxazole-tri | mouth 2 times daily | tablet | | 1/20 | 8/20 | ntinu | | methoprim (BACTRIM | for 10 days. | | | 20 | 20 | ed | | DS) 800-160 mg per | Indications: | | | | | | | tabletIndications: | Non-Purulent Skin | | | | | | | NON-PURULENT SKIN | and Soft Tissue | | | | | | | AND SOFT TISSUE | Infection | | | | | | | INFECTION | | | | | | | + + + +---------+------+------+-------+ | | Take 1 tablet by | 20 | 0 | 05/2 | 05/2 | Disco | | amoxicillin-clavulan | mouth 2 times daily. | tablet | | 1/20 | 8/20 | ntinu | | ate (AUGMENTIN) | | | | 20 | 20 | ed | | 875-125 mg per | | | | | | | | tablet | | | | | | | + + + +---------+------+------+-------+ | metoprolol | Take 25 mg by mouth | | 0 | | 05/2 | Disco | | succinate | Daily. | | | | 8/20 | ntinu | | (TOPROL-XL) 25 mg 24 | | | | | 20 | ed | | hr tablet | | | | | | | + + + +---------+------+------+-------+ | | Take 1 tablet by | | 0 | | 06/0 | Disco | | amoxicillin-clavulan | mouth 2 times daily. 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 | + + + | Arm DVT (deep venous thromboembolism), acute, left | 02/09/2020 | + + + | Iron deficiency anemia due to chronic blood loss | 02/09/2020 | + + + | Acute systolic congestive heart failure | 02/01/2020 | + + + | Acute respiratory failure with hypoxia | 02/01/2020 | + + + | Gastroenteritis | 02/01/2020 | + + + | Acute metabolic encephalopathy | 02/01/2020 | + + + | Pneumonia due to methicillin resistant Staphylococcus aureus | 12/01/2019 | | (MRSA) | | + + + | Influenza A | 11/18/2019 | + + + | NSTEMI (non-ST elevated myocardial infarction) | 10/12/2019 | + + + + + | Overview: Left heart catheterization November 2015 shows no | | significant vessel coronary artery disease. A small branch of PLB | | is about 1 mm in diameter and has 90% proimal stenosis. 20% RCA | | stenosis. Normal central blood pressure. Left ventricular | | systolic function of 60%. No complications. Michi Phipps MD | + + + + + | Shortness of breath | 10/12/2019 | + + + + + | Overview: Left heart catheterization January 2019 shows no | | vessel coronary artery disease. 95/60 central blood pressure. | | Left ventricular end diastolic of 14 mmhg. Gradient of 30 to 35 | | mmgh. JACKELYN of 1.0 to 1.1 cm 2. Moderate to severe aortic stenosis. | | Normal right heart filling pressures. No complications. Wes | | Burt, MDEchocardiogram July 2019 shows the left ventricle is | | of normal size and systolic function. LVEF visually estimated in | | the range of 65%. Aortic valve is echo dense consistent with | | bioprosthetic valve replacement, with peak velocity measuring 2.3 | | m/s. Mean/peak gradients are 11/22 mmHg. This is a limited | | echocardiogram to assess TAVR gradients, which are slightly less | | than patient's prior study of May 2019. Glenda Stratton, | | MDEchocardiogram March 2019 shows the left ventricular chamber | | size is normal. The left ventricular systolic function is | | hyperdynamic. The visually estimated ejection fraction is >70%. | | Mild conentric left ventricular hypertrophy. Spectral doppler is | | indicative of a impaired relaxation (stage 1) filling pattern. | | Elevated filling pressures. Mild mitral valve stenosis. A 23 mm | | acosta saplen transcatheter aortic valve is present. Peak | | velocity is 2.68 m/s. Peak gradient is 29 mmHg. Mean gradient is | | 14.5 mmHg. There is trace perivalvular leakage. Randee Buck, | | MD | + + + + + | Acute coronary syndrome | 10/12/2019 | + + + + + | Overview: Echocardiogram August 2019 shows normal left | | ventricular chamber diameter with mild concentric hypertrophy. | | Normal left ventricular systolic function without regional wall | | motion abnormality. Status post TAVR with borderline prosthetic | | valvular stenosis. Mild mitral valve regurgitation. Bruce | | MD Anupama | + + + + + | Hiatal hernia | 08/31/2019 | + + + | Pressure injury of sacral region, stage 3 | 08/20/2019 | + + + | Chest pain | 08/19/2019 | + + + + + | Overview: Echocardiogram August 2019 shows moderate | | biatrial dilatation. Normal left ventricular size with a mild | | concentric left ventricular hypertrophy. Left ventricular | | systolic function is preserved. LVEF is 60 to 65%. Grade 1 left | | ventricular diastolic dysfunction. Evidence of a TAVR with slight | | increased velocity across aortic valve of 2.7 m/s, peak gradient | | of 30 mmHg, mean gradient of 15 mmHg. There is a mild to | | moderate perivalvular aortic valve insufficiency. Moderately | | thickened and calcified mitral valve suggesting myxomatous | | change. There is a mild calcific mitral valve stenosis. There is | | also a mild to central aortic valve insufficiency. Mild to | | central tricuspid valve regurgitation. Moderate pulmonary | | hypertension with a peak systolic pressure of 60 to 65 mmHg. | | Dilated IVC with a normal respiratory collapse. When compared to | | echocardiography on 06/01/2019, perivalvular aortic valve | | insufficiency seems to be slightly worsened. Pulmonary | | pretension is also worsened. Clint Jovel MD | + + + + + | Right shoulder pain | 08/03/2019 | + + + | Severe protein-calorie malnutrition | 07/21/2019 | + + + | COPD exacerbation | 07/20/2019 | + + + | Anxiety | 07/19/2019 | + + + | Generalized osteoarthritis | 07/15/2019 | + + + | Detrusor dysfunction | 07/15/2019 | + + + | Hypoxemia | 06/23/2019 | + + + | Impaired mobility | 06/16/2019 | + + + | Moderate protein-calorie malnutrition | 06/06/2019 | + + + | Former smoker | 06/04/2019 | + + + | Cerebral atherosclerosis | 06/03/2019 | + + + + + | Overview: CT 05/31/2019: Severe intracranial arteriosclerosis. | | Mild diffuse age related volume loss and mild to | | moderateperiventricular and subcortical white matter hypodensity | | likely suggesting chronic microvascular ischemic gliosis. | + + + + + | Pulmonary hypertension, mild | 06/01/2019 | + + + + + | Overview: 06/01/2019: Mild pulmonary hypertension with a peak | | systolic pressure of 45 to 50 mmHg. | + + + + + | Mitral valve stenosis, mild | 06/01/2019 | + + + + + | Overview: mild calcific mitral valve stenosis. | | ECHO 06/04/2019: | | Possible prosthetic aortic stenosis. | | Peak aortic valve flow velocity is 302.79 cm/s. | | Mean aortic valve gradient is 14.2 mmHg. | + + + + + | Heart failure with acute decompensation, type unknown | 05/31/2019 | + + + + + | Overview: Echocardiogram May 2019 shows mild biatrial | | dilatation. Normal left ventricular size with a mild concentric | | left ventricular hypertrophy. Left ventricular systolic function | | is hyperdynamic. LVEF is 75-80 %. Grade 1 left ventricular | | diastolic dysfunction. Evidence of a TAVR with significant | | increased velocity across aortic valve of 3.1 m/s, peak gradient | | of 39 mmHg, mean gradient of 15 mmHg. There is a trace | | perivalvular aortic valve insufficiency. Moderately thickened and | | calcified mitral valve suggesting myxomatous change. There is a | | mild mitral valve regurgitation. There is also a mild calcific | | mitral valve stenosis. Moderate mitral annular calcification. | | Mild to moderate tricuspid valve regurgitation. Mild pulmonary | | hypertension with a peak systolic pressure of 45 to 50 mmHg. | | Normal IVC with a normal respiratory collapse. Clint Jovel, | | MD | + + + + + | Anemia, blood loss | 05/31/2019 | + + + + + | Overview: Formatting of this note might be different from the | | original.Hematocrit Date Value Ref Range Status 06/03/2019 31.2 | | (L) 34.0 - 47.0 % Final 06/02/2019 31.8 (L) 34.0 - 47.0 % Final | | 06/01/2019 24.3 (L) 34.0 - 47.0 % Final 06/01/2019 25.3 (L) 34.0 | | - 47.0 % Final | |06/01/2019 24.3 (L) 34.0 - 47.0 % Final | |06/01/2019 25.3 (L) 34.0 - 47.0 % Final | + + + + + | Closed nondisplaced fracture of proximal phalanx of lesser toe of | 05/31/2019 | | left foot | | + + + | Coronary artery disease involving [place] coronary artery of | 05/31/2019 | | [place] heart without angina pectoris | | + + + | Centrilobular emphysema | 05/31/2019 | + + + | S/p TAVR (transcatheter aortic valve replacement), bioprosthetic | 05/31/2019 | + + + + + | Overview: Echocardiogram May 2019: This is a limited | | echocardiogram to assess TAVR with normalizing hemoglobin of 10. | | Normal left ventricular size, wall thickness with hyperdynamic | | left ventricular systolic function. LVEF is 75 to 80%. Evidence | | of #23 Acosta sapient 3 TAVR. There is still significant | | increased velocity across aortic valve of 3 m/s, peak gradient of | | 34 mmHg, mean gradient 14 mmHg. When compared echocardiography | | on (hemoglobin of 7), no significant changes. Clint | | PATRICIA Jovel February 2019 shows severe aortic stenosis. TAVR | | with 23 mm Edward Saplen S3 valve. Moderate perivalvular leak, | | requiring a 2nd valve placed 1 cell lower. Echocardiogram February | | 2018 shows normal left ventricular size, thickness, systolic | | function, and wall motion with LVEF 65-70%. A transcatheter | | aortic valve is present. The prosthetic aortic valve appears to | | be functioning normally. No pathologic regurgitation is present. | + + +------+ + | Fall | 05/31/2019 | +------+ + + + | Overview: 05/31/2019: 88 y.o. female who presents patient | | with significant unwitnessed fall last night. She fell down | | injuring her left foot and she is having severe left foot pain. | | She is also having some right arm pain. She presents emergency | | room in a very weakened state. She has significant bruising on | | her upper extremities and lower extremities bilaterally. She | | appears very weak. She is here for further evaluation. She had | | a trans-aortic valve replacement approximately 4 months ago. | + + + + + | Generalized anxiety disorder | 05/31/2019 | + + + | GERD (gastroesophageal reflux disease) | 05/31/2019 | + + + | Hypertension | 05/31/2019 | + + + | Uses walker | | + + + | COPD (chronic obstructive pulmonary disease) | | + + + + + | Overview: Severe COPD and wears 3 L of chronic oxygen. 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) | | | | | | 9 | + + + + + + | Overview: clopidogrel (PLAVIX) | + + Encounters +--------+ + + + + | Date | Type | Specialty | Care Team | Description | +--------+ + + + + | 03/14/ | Telephone | Internal Medicine | Nikolay, | Dressing Change | | 2019 | | | MD Candido | | +--------+ + + + + | 03/13/ | Virtual | Gastroenterology | Nikolay, | 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, | 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); | | | | | | Gastrointestinal | | | | | | hemorrhage, | | | | | | unspecified | | | | | | gastrointestinal | | | | | | hemorrhage type | +--------+ + + + + | 03/13/ | Abstract | Gastroenterology | Provider, | | | 2019 | | | MD Alfredo | | +--------+ + + + + | 03/13/ | Refill | Internal Medicine | Nikolay, | Medication Refill | | 2019 | | | MD Candido | | +--------+ + + + + | 03/07/ | Office | Internal Medicine | Nikolay, | Pressure injury of | | 2019 | Visit | | MD Candido | sacral region, stage | | | | | | 3 (HCC) (Primary | | | | | | Dx); Generalized | | | | | | osteoarthritis; | | | | | | Anemia, blood loss; | | | | | | halfway | | | | | | prescription opiate | | | | | | use | +--------+ + + + + | 03/07/ | Telephone | Internal Medicine | Nikolay, | Referral | | 2019 | | | MD Candido | | +--------+ + + + + | 03/06/ | Home Care | Home Health Services | Jonel Lozano | LASER ENGINEER SECONDARY EVAL | | 2019 | Visit | | OBDULIA Garcia | | +--------+ + + + + | 03/06/ | Home Care | Home Health Services | Wanda Barbosa, | SN DISCHARGE (AFTER | 2019 | Visit | | RN | TRANSFER NO DANIELLA/ONE | | | | | | TIME OPEN) | +--------+ + + + + | 03/06/ | Telephone | Internal Medicine | Nikolay, | Medication Refill | | 2019 | | | MD Candido | | +--------+ + + + + | 03/06/ | Home Care | Home Health Services | Jonel Lozano | CASE COMMUNICATION | | 2019 | Visit | | OBDULIA Garcia | | +--------+ + + + + | 03/06/ | Telephone | Internal Medicine | Nikolay, | Medical Problem | | 2019 | | | MD Candido | | +--------+ + + + + | 03/06/ | Home Care | Home Health Services | Layla Pablo | CASE COMMUNICATION | | 2019 | Visit | | | | +--------+ + + + + | 03/06/ | Telephone | Orthopedic Surgery | Teddy Ruiz | ER Follow-up | | 2019 | | | MD Jerry | | +--------+ + + + + | 03/03/ | Emergency | Emergency Medicine | Pj | Fall, initial | | 2019 | | | MD Marcel | encounter (Primary | | | | | | Dx); Contusion of | | | | | | forehead, initial | | | | | | encounter; Multiple | | | | | | skin tears; | | | | | | Decubitus ulcer of | | | | | | coccygeal region, | | | | | | unspecified ulcer | | | | | | stage | +--------+ + + + + | 03/03/ | Telephone | Case Management | Janel, | TCM - Hosp FU | | 2019 | | | Brittany Schulz RN | | +--------+ + + + + | 03/03/ | Home Care | Home Health Services | Emily Reynolds, PT | CASE COMMUNICATION | 2019 | Visit | | | | +--------+ + + + + | 03/02/ | Telephone | Home Health Services | Shikha Peace, | Referral (Follow up) | 2019 | | | FUNMILAYO | | +--------+ + + + + | 02/28/ | Telephone | Case Management | Janel, | Care Coordination | | 2019 | | | Brittany Schulz RN | | +--------+ + + + + | 02/27/ | Home Care | Home Health Services | Linda Laughlin, | SN TRSFR W/OUT D/C | | 2019 | Visit | | RN | ([place]) | +--------+ + + + + | 02/26/ | Hospital | | Mir Lux | Fall, initial | | 2019 - | Encounter | | Kevin Urbano MD | encounter (Primary | | | | | Aida Mills MD | Dx); Other closed | | 03/02/ | | | | nondisplaced | | 2019 | | | | fracture of second | | | | | | cervical vertebra, | | | | | | initial encounter | | | | | | ([facility]); Colitis; | | | | | | Weakness; 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 | | | | | | loss; Acute | | | | | | 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 ([facility]); | | | | | | Chronic obstructive | | | | | | pulmonary disease, | | | | | | unspecified COPD | | | | | | type ([facility]); Anemia, | | | | | | unspecified type | +--------+ + + + + | 02/26/ | Home Care | Home Health Services | Layla Pablo | CASE COMMUNICATION | | 2019 | Visit | | | | +--------+ + + + + | 02/25/ | Emergency | Emergency Medicine | Nguyễn Oden MD | Fall from ground | | 2019 | | | | level (Primary Dx); | | | | | | Laceration of right | | | | | | side of back, | | | | | | initial encounter | +--------+ + + + + | 02/24/ | Home Care | Home Health Services | Wanda Barbosa, | SN DANIELLA ([place]) | | 2020 | Visit | | RN | | +--------+ + + + + | 02/24/ | Telephone | Case Management | Kaylyn Rivas, | TCM - Hosp FU | | 2020 | | | RN | | +--------+ + + + + | 02/23/ | Telephone | Home Health Services | Shikha Peace, | Referral (Follow up) | | 2019 | | | RN | | +--------+ + + + + | 02/09/ | Telephone | Case Management | Janel | Care Coordination | | 2020 | | | Brittany Schulz RN | | +--------+ + + + + | 02/08/ | Hospital | | Teddy Carreno | Acute deep vein | | 2019 - | Encounter | | MD Venkata Hester, | thrombosis (DVT) of | | | | | MD Dimas Castillo, | axillary vein of | | 02/23/ | | | Bruce Coe MD | left upper extremity | | 2019 | | | | (HCC) (Primary Dx); | | | | | | Arm DVT (deep | | | | | | venous | | | | | | thromboembolism), | | | | | | acute, left (HCC); | | | | | | 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; | | | | | | Chronic obstructive | | | | | | pulmonary disease, | | | | | | unspecified COPD | | | | | | type ([facility]); | | | | | | Decubitus ulcer of | | | | | | sacral region, stage | | | | | | 2 ([facility]); 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 ([facility]); | | | | | | Pressure injury of | | | | | | sacral region, stage | | | | | | 3 ([facility]) | +--------+ + + + + | 02/08/ | Intake | | | N/A | | 2020 | | | | | +--------+ + + + + | 02/08/ | Telephone | Internal Medicine | Nikolay, | Medication Refill | | 2020 | | | MD Candido | | +--------+ + + + + | 02/07/ | Telephone | Home Health Services | Shikha Peace, | Referral (Follow up) | | 2019 | | | RN | | +--------+ + + + + | 02/06/ | Telephone | Internal Medicine | Nikolay, | Medication Refill | 2019 | | | MD Candido | | +--------+ + + + + | 01/31/ | Home Care | Home Health Services | Linda Laughlin, | SN TRSFR W/NATE D/C | | 2019 | Visit | | FUNMILAYO | ([place]) | +--------+ + + + + | 01/31/ | Telephone | Case Management | Janel | Care Coordination | | 2019 | | | Brittany Schulz RN | | +--------+ + + + + | 01/31/ | Home Care | Home Health Services | Layla Pablo | CASE COMMUNICATION | | 2019 | Visit | | | | +--------+ + + + + | 01/30/ | Hospital | | Raymon Daniel, | Acute respiratory | | 2019 - | Encounter | | Aida Anaya MD | failure with hypoxia | | | | | | (HCC) (Primary Dx); | | 02/08/ | | | | Acute systolic | | 2019 | | | | congestive heart | | | | | | failure (HCC); | | | | | | Elevated troponin I | | | | | | level; Pressure | | | | | | [...] | | | | | | malnutrition ([facility]); | | | | | | Goals [...] | | | | | | failure ([facility]); | | | | | | Chronic obstructive | | | | | | pulmonary disease, | | | | | | unspecified COPD | | | | | | type ([facility]); Moderate | | | | | | protein-calorie | | | | | | malnutrition ([facility]); | | | | | | Impaired [...] use | +--------+ + + + + | 01/30/ | Refill | Internal Medicine | Nikolay, | Medication Refill | | 2019 | | | MD Candido | | +--------+ + + + + | 01/25/ | Home Care | Home Health Services | Manisha Rivas, | SN REPEAT VISIT | | 2019 | Visit | | RN | | +--------+ + + + + | 01/25/ | Refill | Internal Medicine | Nikolay, | Medication Refill | 2019 | | | MD Candido | | +--------+ + + + + | 01/24/ | Home Care | Home Health Services | Bernardo Souza | OT DISCIPLINE D/C | | 2019 | Visit | | Jazz OT | | +--------+ + + + + | 01/23/ | Home Care | Home Health Services | Emily Reynolds, LAM | CASE COMMUNICATION | | 2019 | Visit | | | | +--------+ + + + + | 01/20/ | Virtual | Pulmonology | Lina Correa | Chronic obstructive | 2019 | Office | | MD Jan | pulmonary disease, | | | Visit | | | unspecified COPD | | | | | | type (HCC) (Primary | | | | | | Dx); Chronic | | | | | | hypoxemic | | | | | | respiratory failure | | | | | | (HCC) | +--------+ + + + + | 01/20/ | Telephone | Internal Medicine | Nikolay, | Medication Question | | 2019 | | | MD Candido | | +--------+ + + + + | 01/18/ | Home Care | Home Health Services | Wanda Barbosa, | SN ROSE ([place]) | | 2019 | Visit | | RN | | +--------+ + + + + | 01/17/ | Home Care | Home Health Services | Bernardo Souza | OT REPEAT VISIT | | 2019 | Visit | | DANN Schulz | | +--------+ + + + + | 01/13/ | Home Care | Home Health Services | Autumn Hart RN | REPEAT VISIT | | 2019 | Visit | | | | +--------+ + + + + | 01/12/ | Refill | Internal Medicine | Nikolay, | Medication Refill | | 2019 | | | MD Candido | | +--------+ + + + + | 01/10/ | Home Care | Home Health Services | Bernardo Souza | OT SECONDARY EVAL | | 2019 | Visit | | M OT | | +--------+ + + + + | 01/06/ | Home Care | Home Health Services | Wanda Barbosa, | SN REPEAT VISIT | | 2019 | Visit | | RN | | +--------+ + + + + | 01/05/ | Orders Only | Internal Medicine | Nikolay, | Chronic right | | 2019 | | | MD Candido | shoulder pain | | | | | | (Primary Dx) | +--------+ + + + + | 01/04/ | Orders Only | Internal Medicine | Nikolay, | Generalized | 2019 | | | MD Candido | osteoarthritis; Long | | | | | | term prescription | | | | | | opiate use | +--------+ + + + + | 01/03/ | Home Care | Home Health Services | Wanda Barbosa, | SN REPEAT VISIT | | 2019 | Visit | | RN | | +--------+ + + + + | 01/03/ | Telephone | Pulmonology | Lina Correa | Medication Prior | 2019 | | | MD Jan | Authorization | +--------+ + + + + | 01/03/ | Telephone | Internal Medicine | Nikolay, | Medication Related | 2019 | | | MD Candido | | +--------+ + + + + | 01/02/ | Telephone | Pulmonology | Lina Correa | Other | 2019 | | | MD Jan | | +--------+ + + + + | 12/30/ | Home Care | Home Health Services | Manisha Rivas, | SN REPEAT VISIT | | 2019 | Visit | | RN | | +--------+ + + + + | 12/29/ | Home Care | Home Health Services | Linda Laughlin, | CASE COMMUNICATION | | 2019 | Visit | | RN | | +--------+ + + + + | 12/29/ | Telephone | Internal Medicine | Nikolay, | Medication Question | | 2019 | | | MD Candido | | +--------+ + + + + | 12/28/ | Home Care | Home Health Services | Ginger Lynn RN | CASE COMMUNICATION | | 2019 | Visit | | | | +--------+ + + + + | 12/27/ | Home Care | Home Health Services | Ginger Lynn RN | CASE COMMUNICATION | | 2019 | Visit | | | | +--------+ + + + + | 12/26/ | Home Care | Home Health Services | Layla Pablo | CASE COMMUNICATION | | 2019 | Visit | | | | +--------+ + + + + | 12/24/ | Refill | Internal Medicine | Nikolay, | Medication Refill | | 2019 | | | MD Candido | | +--------+ + + + + | 12/23/ | Telephone | Internal Medicine | Nikolay, | DME | | 2019 | | | MD Candido | | +--------+ + + + + | 12/22/ | Home Care | Home Health Services | Nivia Olivarez CNA | CASE COMMUNICATION | | 2019 | Visit | | | | +--------+ + + + + | 12/22/ | Refill | Internal Medicine | Nikolay, | Medication Refill | | 2019 | | | MD Candido | | +--------+ + + + + | 12/22/ | Telephone | Internal Medicine | Nikolay, | Referral | | 2019 | | | MD Candido | | +--------+ + + + + | 12/21/ | Home Care | Home Health Services | Wanda Barbosa, | SN REPEAT VISIT | 2019 | Visit | | RN | | +--------+ + + + + | 12/21/ | Home Care | Home Health Services | García Walker, PT | PT DISCIPLINE D/C | 2019 | Visit | | | | +--------+ + + + + | 12/21/ | Orders Only | Cardiology | Shawn Stratton | 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[place] | | | | | | heart without angina | | | | | | pectoris (Primary | | | | | | Dx); Acute on | | | | | | chronic diastolic | | | | | | heart failure (HCC) | +--------+ + + + + | 12/21/ | Telephone | Internal Medicine | Nikolay, | Hospice | | 2019 | | | MD Candido | | +--------+ + + + + | 12/20/ | Home Care | Home Health Services | Sam Quintanilla, | PT REPEAT VISIT | | 2019 | Visit | | SUPERVISOR AGENCY APPOINTMENTS | | +--------+ + + + + | 12/19/ | Home Care | Home Health Services | Nivia Olivarez CNA | HH AIDE REPEAT VISIT | | 2019 | Visit | | | | +--------+ + + + + | 12/19/ | Home Care | Home Health Services | Wanda Barbosa, | SN REPEAT VISIT | | 2019 | Visit | | RN | | +--------+ + + + + | 12/19/ | Home Care | Home Health Services | Emily Reynolds, PT | CASE COMMUNICATION | | 2019 | Visit | | | | +--------+ + + + + | 12/19/ | Home Care | Home Health Services | Layla Pablo | CASE COMMUNICATION | | 2019 | Visit | | | | +--------+ + + + + | 12/16/ | Home Care | Home Health Services | Nivia Olivarez CNA | BALDEMAR GUZMANE REPEAT VISIT | | 2019 | Visit | | | | +--------+ + + + + | 12/16/ | Home Care | Home Health Services | Sam Quintanilla, | PT REPEAT VISIT | | 2019 | Visit | | SUPERVISOR AGENCY APPOINTMENTS | | +--------+ + + + + | 12/14/ | Home Care | Home Health Services | Wanda Barbosa, | SN REPEAT VISIT | | 2019 | Visit | | RN | | +--------+ + + + + | 12/14/ | Home Care | Home Health Services | García Walker, PT | PT SECONDARY EVAL | | 2019 | Visit | | | | +--------+ + + + + | 12/13/ | Home Care | Home Health Services | Nivia Olivarez CNA | HH AIDE REPEAT VISIT | | 2019 | Visit | | | | +--------+ + + + + | 12/13/ | Office | Internal Medicine | Nikolay, | Pneumonia due to | | 2019 | Visit | | MD Candido | 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 | | | | | | Staphylococcus | | | | | | aureus, unspecified | | | | | | laterality, | | | | | | unspecified part of | | | | | | lung (HCC) (Primary | | | | | | Dx) | +--------+ + + + + | 12/13/ | Home Care | Home Health Services | García Walker, PT | CASE COMMUNICATION | | 2019 | Visit | | | | +--------+ + + + + | 12/12/ | Home Care | Home Health Services | Layla Pablo | CASE COMMUNICATION | | 2019 | Visit | | | | +--------+ + + + + | 12/12/ | Telephone | Internal Medicine | Kaylyn Rivas, | TCM - Hosp FU | | 2019 | | | RN | | +--------+ + + + + | 12/12/ | Documentati | Rehabilitation | Ivett Roger, | Discharge Without | | 2019 | on | | OT | Visit | +--------+ + + + + | 12/12/ | Refill | Pulmonology | Lina Correa | Medication Refill | 2019 | | | MD Jan | | +--------+ + + + + from Last 3 Months Immunizations + + + + | Name | Administration Dates | Next Due | + + + + | TDCHILO (ADOL/ADULT) | 12/26/2019 | | + + + + Family History + + +------+ + | Medical History | Relation | Name | Comments | + + +------+ + | Hypertension | Mother | | | + + +------+ + | Stroke | Mother | | | + + +------+ + + +------+ + + | Relation | Name | Status | Comments | + +------+ + + | Mother | | | | + +------+ + + Social History + + + [...] recent travel history available. | + + Last Filed Vital Signs + + + + + | Vital Sign | Reading | Time Taken | Comments | + + + + + | Blood Pressure | 80/30 | 03/07/2020 11:13 AM | | | | | PDT | | + + + + + | Pulse | 71 | 03/07/2020 11:13 AM | | | | | PDT | | + + + + + | Temperature | 37.2 C (99 F) | 03/07/2020 11:13 AM | | | | | PDT | | + + + + + | Respiratory Rate | 16 | 03/03/2020 6:00 AM | | | | | PDT | | + + + + + | Oxygen Saturation | 93% | 03/07/2020 11:13 AM | | | | | PDT | | + + + + + | Inhaled Oxygen | - | - | | | Concentration | | | | + + + + + | Weight | 51.7 kg (114 lb) | 03/13/2020 2:07 PM | | | | | PDT | | + + + + + | Height | 167.6 cm (5' 5.98") | 02/18/2020 12:31 PM | | | | | PDT | | + + + + + | Body Mass Index | 18.41 | 02/18/2020 12:31 PM | | | | | PDT | | + + + + + Plan of Treatment +--------+ + + + + | Date | Type | Specialty | Care Team | Description | +--------+ + + + + | 03/23/ | Office | Anticoagulation | García Harris, | | | 2019 | Visit | | [employer] [employer] [address] | | | | | | [place] | | | | | | [id number] | | | | | | | | +--------+ + + + + | 04/11/ | Appointment | Radiology | Shawn Stratton | | | 2019 | | | MD [address] | | | | | | [address] [place] | | | | | | [place] [address] | | | | | | [phone] | | | | | | | | +--------+ + + + + | 04/13/ | Office | Cardiology | Shawn Stratton | | | 2019 | Visit | | MD [address] | | | | | | [address] [place] | | | | | | [place] [address] | | | | | | [phone] | | | | | | | | +--------+ + + + + + + + + + | Health Maintenance | Due Date | Last Done | Comments | + + + + + | Vaccine: Zoster (1 | | | | | of 2) | 0 | | | + + + + + | Vaccine: | | | | | Pneumococcal 65+ (1 | 5 | | | | of 2 - PCV13) | | | | + + + + + | Adult Annual | | | | | Wellness Visit | 9 | | | + + + + + | Vaccine: Influenza | | | Postponed from | | (Season Ended) | 0 | | 06/06/2020 (Patient | | | | | Declined) | + + + + + | Urine Drug Screening | | 03/07/2020, 03/07/2020 | | | | 1 | | | + + + + + | Vaccine: | | 12/26/2019 | | | Dtap/Tdap/Td (2 - | 0 | | | | Td) | | | | + + + + + Procedures + +--------+ + + + | Procedure Name | Priori | Date/Time | Associated Diagnosis | Comments | | | ty | | | | + +--------+ + + + | CBC WITH | Routin | 03/07/2020 | Anemia, blood loss | Results for this | | DIFFERENTIAL | e | 12:27 PM | | procedure are in the | | | | PDT | | results section. | + +--------+ + + + | DRUGS OF ABUSE, | Routin | 03/07/2020 | Generalized | Results for this | | SCREEN, URINE | e | 12:16 PM | osteoarthritis Long | procedure are in the | | | | PDT | term prescription | results section. | | | | | opiate use | | + +--------+ + + + | DRUGS OF ABUSE, | Routin | 03/07/2020 | Generalized | Results for this | | OPIATES, CONFIRM, | e | 12:16 PM | osteoarthritis Long | procedure are in the | | URINE | | PDT | term prescription | results section. | | | | | opiate use | | + +--------+ + + + | CT KNEE LEFT WO | STAT | 03/03/2020 | | Results for this | | CONTRAST | | 1:48 PM | | procedure are in the | | | | PDT | | results section. | + +--------+ + + + | CT ELBOW LEFT WO | STAT | 03/03/2020 | | Results for this | | CONTRAST | | 1:48 PM | | procedure are in the | | | | PDT | | results section. | + +--------+ + + + | XR CHEST AP PORTABLE | STAT | 03/03/2020 | | Results for this | | | | 9:54 AM | | procedure are in the | | | | PDT | | results section. | + +--------+ + + + | B TYPE NATRIURETIC | STAT | 03/03/2020 | | Results for this | | PEPTIDE | | 9:47 AM | | procedure are in the | | | | PDT | | results section. | + +--------+ + + + | COMPREHENSIVE | STAT | 03/03/2020 | | Results for this | | METABOLIC PANEL | | 9:47 AM | | procedure are in the | | | | PDT | | results section. | + +--------+ + + + | CBC WITH | STAT | 03/03/2020 | | Results for this | | DIFFERENTIAL | | 9:47 AM | | procedure are in the | | | | PDT | | results section. | + +--------+ + + + | CT HEAD WO CONTRAST | STAT | 03/03/2020 | | Results for this | | | | 6:47 AM | | procedure are in the | | | | PDT | | results section. | + +--------+ + + + | XR KNEE LEFT 3 VW | STAT | 03/03/2020 | | Results for this | | | | 6:47 AM | | procedure are in the | | | | PDT | | results section. | + +--------+ + + + | XR ELBOW LEFT 3 + VW | STAT | 03/03/2020 | | Results for this | | | | 6:47 AM | | procedure are in the | | | | PDT | | results section. | + +--------+ + + + | ED INFORMATION | Routin | 03/03/2020 | | | | EXCHANGE | e | 5:52 AM | | | | | | PDT | | | + +--------+ + + + +---+--------+ | | | | | Proced | | | ure | | | Note - | | | Kobe, | | | Lab In | | | | | | Hlseve | | | n - | | | 05/29/ | | | 2020 | | | 5:53 | | | AM PDT | | [...] | | | FICATI | | | ON?05/ | | | 29/202 | | | 0 | | | 05:51? | | | CARLINE | | | , | | | ÁNGELA | | | J?MRN: | | | | | | [id number] | | | [id number] | | | riteri | | | [...] | | | to | | | home.C | | | are | | | Histor | | | yMedic | | | al/Radha | | | [email or web address] | | | /24/19 | | | 12:00 | | | AM | | | [facility] [place] | | | y | | | [...] | | | s | | | [facility] | | | ED | | | Dispar | | | ity | | | Measur | | | e - | | | [facility] | | | has | | | [...] | | | s. | | | [facility] | | | | | | Health [...] | | | By: | | | [facility] | | | | | | Health [...] MED | | | | | | 2019-0 | | | 7-22 | | | HYDROC | | | ODONE- | | | ACETAM | | | [place] | | | 7.5-32 | | | 5 120 | | | MARIZA | | | SOTO 2 | | | 30 | | | 2019-0 | | | 6-22 | | | HYDROC | | | ODONE- | | | ACETAM | | | IN | | | 7.5-32 | | | 5 120 | | | MARIJA | | | | | | VICTORINO | | | 2 30 | | | Rx | | | Summar | | | yMetri | | | c | | | Count | | | CS | | | II-V | | | Rx 2 | | | CS-II | | | Rx 2 | | | Quanti | | | ty | | | Dispen | | | sed | | | 240 | | | Unique | | | | | | Prescr | | | ibers | | | 2 | | | Unique | | | | | | Pharma | | | cies 1 | | | | | | Benzos | | | 0 | | | Opioid | | | s 2 | | | Long | | | [...] | | Hospit | | | al 2 0 | | | | | | Provid | | | ence | | | [facility] | | | [facility] | | | l | | | Center | | | 20 0 | | | [place] | | | | | | [facility] | | | l | | | Hospit | | | al 1 0 | | | [facility] [place] | | | y | | | Hospit | | | al 3 0 | | | Total | | | 30 0 | | | Note: | | [...] | | out | | | of 32 | | | in the | | [...] | | | int | | | May | | | 29, | | | 2020 | | | Provid | | | ence | | | [facility] | | [facility] | [place] | | | [place] | | | Emerge | | | ncy | | | May | | | 24, | | | 2020 | | | Provid | | | ence | | | [facility] | | [facility] [place] | | | [place] | | | Emerge | | | ncy | | | Fall | | | | | | Noninf | | | ective | | | | | | gastro | | | enteri | | | tis | | | and | | | coliti | | | s, | | | unspec | | | ified | | | | | | Iron | | | defici | | | ency | | | anemia | | | | | | second | | | [place] to | | | blood | | | loss | | | (chron | | | ic) | | | | | | Unspec | | | ified | | | fall, | | | initia | | | l | | | encoun | | | ter | | | | | | Weakne | | | ss | | | Other | | | nondis | | | placed | | | | | | fractu | | | re of | | | second | | | | | | cervic | | | al | | | verteb | | | ra, | | | init | | | | | | Acute | | | systol | | | ic | | | (conge | | | stive) | | | heart | | | | | | failur | | | e | | | Chroni | | | c | | | obstru | | | ctive | | | pulmon | | | [place] | | | diseas | | | e, | | | unspec | | | ified | | | May | | | 23, | | | 2020 | | | Provid | | | ence | | | [facility] | | [facility] | [place] | | | [place] | | | Emerge | | | ncy | | | Fall | | | | | | Coagul | | | ation | | | Disord | | | er | | | Back | | | Pain | | | | | | Lacera | | | tion | | | withou | | | t | | | foreig | | | n body | | | of | | | right | | | back | | | wall | | | of | | | thorax | | | | | | Fall | | | on | | | same | | | level, | | | | | | unspec | | | ified, | | | | | | initia | | | l | | | encoun | | | ter | | | May 6, | | | 2020 | | | Provid | | | ence | | | St[facility] | | | [facility] | [place] | | | [place] | | | Emerge | | | ncy | | | Hand | | | Swelli | | | ng | | | Iron | | | defici | | | ency | | | anemia | | | | | | second | | | [place] to | | | blood | | | loss | | | (chron | | | ic) | | | Acute | | | | | | emboli | | | sm and | | | | | | thromb | | | osis | | | of | | | deep | | | veins | | | of | | | left | | | upper | | | ext | | | | | | Chroni | | | c | | | obstru | | | ctive | | | pulmon | | | [place] | | | diseas | | | e, | | | unspec | | | ified | | | | | | Acute | | | emboli | | | sm and | | | | | | thromb | | | osis | | | of | | | left | | | axilla | | | ry | | | vein | | | Apr | | | 27, | | | 2020 | | | Provid | | | ence | | | [facility] [place] | | | [place] | | | Emerge | | | ncy | | | Skin | | | Ulcer | | | | | | Shortn | | | ess of | | | | | | Breath | | | | | | Acute | | | systol | | | ic | | | (conge | | | stive) | | | heart | | | | | | failur | | | e | | | Pressu | | | re-ind | | | uced | | | deep | | | tissue | | | | | | damage | | | of | | | sacral | | | | | | region | | | | | | Acute | | | respir | | | atory | | | failur | | | e with | | | | | | hypoxi | | | a | | | Other | | | specif | | | ied | | | abnorm | | | al | | | findin | | | gs of | | | blood | | | chemis | | | try | | | | | | Cyclic | | | al | | | vomiti | | | ng | | | syndro | | | me | | | unrela | | | yoel to | | | | | | migrai | | | ne | | | Mar | | | 22, | | | 2020 | | | [facility] [place] | | | [facility] | | [...] | | | St[facility] | | | [place] | | | [facility]. | | [...] | | | leavin | | | | | | Recent [...] | | | int | | | May | | | 24, | | | 2020 | | | Provid | | | ence | | | [facility] | | | [facility] | | [place] | | | [place] | | | Medica | | | l | | | Surgic | | | al | | | Iron | | | defici | | | ency | | | anemia | | | | | | second | | | madison to | | | blood | | | loss | | | (chron | | | ic) | | | | | | Chroni | | | c | | | obstru | | | ctive | | | pulmon | | | madison | | | diseas | | | e, | | | unspec | | | ified | | | | | | Acute | | | systol | | | ic | | | (conge | | | stive) | | | heart | | | | | | failur | | | e | | | Unspec | | | ified | | | fall, | | | initia | | | l | | | encoun | | | ter | | | Other | | | | | | nondis | | | placed | | | | | | fractu | | | re of | | | second | | | | | | cervic | | | al | | | verteb | | | ra, | | | init | | | | | | Weakne | | | ss | | | Noninf | | | ective | | | | | | gastro | | | enteri | | | tis | | | and | | | coliti | | | s, | | | unspec | | | ified | | | | | | Anemia | | | , | | | unspec | | | ified | | | May | | | 6, | | | 2020 | | | Provid | | | ence | | | [facility] | | | [facility] | [place] | | | [place] | | | Surgic | | | al | | | Servic | | | es | | | Acute | | | emboli | | | sm and | | | | | | thromb | | | osis | | | of | | | left | | | axilla | | | ry | | | vein | | | | | | Acute | | | emboli | | | sm and | | | | | | thromb | | | osis | | | of | | | deep | | | veins | | | of | | | left | | | upper | | | ext | | | | | | Chroni | | | c | | | obstru | | | ctive | | | pulmon | | | [place] | | | diseas | | | e, | | | unspec | | | ified | | | | | | Iron | | | defici | | | ency | | | anemia | | | | | | second | | | [place] to | | | blood | | | loss | | | (chron | | | ic) | | | | | | Pressu | | | re | | | ulcer | | | of | | | sacral | | | | | | region | | | , | | | stage | | | 2 | | | Acute | | | on | | | chroni | | | c | | | combin | | | ed | | | systol | | | ic | | | (conge | | | stive) | | | and | | | diasto | | | lic | | | | | | Pressu | | | re | | | ulcer | | | of | | | sacral | | | | | | region | | | , | | | stage | | | 3 Apr | | | 27, | | | 2020 | | | Provid | | | ence | | | [facility] | | | [facility] | [place] | | | [place] | | | Surgic | | | al | | | Servic | | | es | | | Acute | | | respir | | | atory | | | failur | | | e with | | | | | | hypoxi | | | a | | | Acute | | | systol | | | ic | | | (conge | | | stive) | | | heart | | | | | | failur | | | e | | | Other | | | specif | | | ied | | | abnorm | | | al | | | findin | | | gs of | | | blood | | | chemis | | | try | | | | | | Cyclic | | | al | | | vomiti | | | ng | | | syndro | | | me | | | unrela | | | yoel to | | | | | | migrai | | | ne | | | Pressu | | | re-ind | | | uced | | | deep | | | tissue | | | | | | damage | | | of | | | sacral | | | | | | region | | | | | | Noninf | | | ective | | | | | | gastro | | | enteri | | | tis | | | and | | | coliti | | | s, | | | unspec | | | ified | | | | | | [place] | | | lic | | | enceph | | | alopat | | | hy | | | Anxiet | | | y | | | disord | | | er, | | | unspec | | | ified | | | | | | Encoun | | | ter | | | for | | | pallia | | | tive | | | care | | | | | | Other | | | specif | | | ied | | | counse | | | ling | | | Feb | | | [...] | | e of | | | [place] | | | | | | pal[place] [...] | | e of | | | [place] | | | | | | palencia [...] | | | protei | | | n-bnag | | | julieta | | | [...] | | | 2019 | | | [place] | | | | | | Genera [...] | | | pain | | | Care | | | [...] | | | M.D. | | | Dry Ice Maker | | | al | | | [...] | | | otify/ | | | [id number] | | | [phone] | | | [phone] | | | [phone] | | | [id number] | | | [id number] | | | | | | PLEASE [...] [email or web address] | | | m | +---+--------+ + +--------+ +---+ + | EXTRA GREEN TOP TUBE | Routin | 03/02/2020 | | Results for this | | | e | 5:27 AM | | procedure are in the | | | | PDT | | results section. | + +--------+ +---+ + | CBC NO DIFFERENTIAL | Routin | 03/02/2020 | | Results for this | | | e | 5:27 AM | | procedure are in the | | | | PDT | | results section. | + +--------+ +---+ + | PRODUCT: RBC | Routin | 03/01/2020 | | Results for this | | | e | 10:49 AM | | procedure are in the | | | | PDT | | results section. | + +--------+ +---+ + | EXTRA GREEN TOP TUBE | Routin | 03/01/2020 | | Results for this | | | e | 5:05 AM | | procedure are in the | | | | PDT | | results section. | + +--------+ +---+ + | CBC NO DIFFERENTIAL | Routin | 03/01/2020 | | Results for this | | | e | 5:05 AM | | procedure are in the | | | | PDT | | results section. | + +--------+ +---+ + | VAS UPPER EXTREMITY | Routin | 02/29/2020 | | Results for this | | VENOUS LEFT | e | 3:49 PM | | procedure are in the | | | | PDT | | results section. | + +--------+ +---+ + | B TYPE NATRIURETIC | Routin | 02/29/2020 | | Results for this | | PEPTIDE | e | 4:17 AM | | procedure are in the | | | | PDT | | results section. | + +--------+ +---+ + | BASIC METABOLIC | Routin | 02/29/2020 | | Results for this | | PANEL | e | 4:17 AM | | procedure are in the | | | | PDT | | results section. | + +--------+ +---+ + | CBC WITH | Routin | 02/29/2020 | | Results for this | | DIFFERENTIAL | e | 4:17 AM | | procedure are in the | | | | PDT | | results section. | + +--------+ +---+ + | OCCULT BLOOD, STOOL, | Routin | 02/29/2020 | | Results for this | | SPECIMEN 1 | e | 3:52 AM | | procedure are in the | | | | PDT | | results section. | + +--------+ +---+ + | HEMOGLOBIN AND | Routin | 02/28/2020 | | Results for this | | HEMATOCRIT | e | 8:49 PM | | procedure are in the | | | | PDT | | results section. | + +--------+ +---+ + | TRANSFUSE 1 UNIT RED | Routin | 02/28/2020 | | | | BLOOD CELLS | e | 6:39 PM | | | | | | PDT | | | + +--------+ +---+ + | PRODUCT: RBC | Routin | 02/28/2020 | | Results for this | | | e | 2:14 PM | | procedure are in the | | | | PDT | | results section. | + +--------+ +---+ + | HEMOGLOBIN AND | Routin | 02/28/2020 | | Results for this | | HEMATOCRIT | e | 12:28 PM | | procedure are in the | | | | PDT | | results section. | + +--------+ +---+ + | MAGNESIUM | Routin | 02/28/2020 | | Results for this | | | e | 4:38 AM | | procedure are in the | | | | PDT | | results section. | + +--------+ +---+ + | CBC NO DIFFERENTIAL | Routin | 02/28/2020 | | Results for this | | | e | 4:38 AM | | procedure are in the | | | | PDT | | results section. | + +--------+ +---+ + | BASIC METABOLIC | Routin | 02/28/2020 | | Results for this | | PANEL | e | 4:38 AM | | procedure are in the | | | | PDT | | results section. | + +--------+ +---+ + | EXTRA GOLD TOP TUBE | Routin | 02/28/2020 | | Results for this | | | e | 1:00 AM | | procedure are in the | | | | PDT | | results section. | + +--------+ +---+ + | IRON AND TRANSFERRIN | Routin | 02/28/2020 | | Results for this | | | e | 12:45 AM | | procedure are in the | | | | PDT | | results section. | + +--------+ +---+ + | PROTIME INR | Routin | 02/28/2020 | | Results for this | | | e | 12:45 AM | | procedure are in the | | | | PDT | | results section. | + +--------+ +---+ + | HEMOGLOBIN AND | Routin | 02/28/2020 | | Results for this | | HEMATOCRIT | e | 12:45 AM | | procedure are in the | | | | PDT | | results section. | + +--------+ +---+ + | HEMOGLOBIN | Routin | 02/27/2020 | | Results for this | | | e | 10:31 PM | | procedure are in the | | | | PDT | | results section. | + +--------+ +---+ + | URINALYSIS WITH | STAT | 02/27/2020 | | Results for this | | MICROSCOPIC WITH | | 1:32 PM | | procedure are in the | | CULTURE IF INDICATED | | PDT | | results section. | + +--------+ +---+ + | XR KNEE RIGHT 1 - 2 | STAT | 02/27/2020 | | Results for this | | VW | | 12:57 PM | | procedure are in the | | | | PDT | | results section. | + +--------+ +---+ + | XR KNEE LEFT 1 - 2 | STAT | 02/27/2020 | | Results for this | | VW | | 12:57 PM | | procedure are in the | | | | PDT | | results section. | + +--------+ +---+ + | CT HEAD WO CONTRAST | STAT | 02/27/2020 | | Results for this | | | | 12:54 PM | | procedure are in the | | | | PDT | | results section. | + +--------+ +---+ + | CT CHEST ABDOMEN | STAT | 02/27/2020 | | Results for this | | PELVIS WO CONTRAST | | 12:54 PM | | procedure are in the | | | | PDT | | results section. | + +--------+ +---+ + | CT CERVICAL SPINE WO | STAT | 02/27/2020 | | Results for this | | CONTRAST | | 12:54 PM | | procedure are in the | | | | PDT | | results section. | + +--------+ +---+ + | C-REACTIVE PROTEIN | Add-On | 02/27/2020 | | Results for this | | | | 12:31 PM | | procedure are in the | | | | PDT | | results section. | + +--------+ +---+ + | PROCALCITONIN, SERUM | Add-On | 02/27/2020 | | Results for this | | | | 12:31 PM | | procedure are in the | | | | PDT | | results section. | + +--------+ +---+ + | MAGNESIUM | Add-On | 02/27/2020 | | Results for this | | | | 12:31 PM | | procedure are in the | | | | PDT | | results section. | + +--------+ +---+ + | TROPONIN I | Add-On | 02/27/2020 | | Results for this | | | | 12:31 PM | | procedure are in the | | | | PDT | | results section. | + +--------+ +---+ + | CK TOTAL | STAT | 02/27/2020 | | Results for this | | | | 12:31 PM | | procedure are in the | | | | PDT | | results section. | + +--------+ +---+ + | LIPASE | STAT | 02/27/2020 | | Results for this | | | | 12:31 PM | | procedure are in the | | | | PDT | | results section. | + +--------+ +---+ + | COMPREHENSIVE | STAT | 02/27/2020 | | Results for this | | METABOLIC PANEL | | 12:31 PM | | procedure are in the | | | | PDT | | results section. | + +--------+ +---+ + | CBC WITH | STAT | 02/27/2020 | | Results for this | | DIFFERENTIAL | | 12:31 PM | | procedure are in the | | | | PDT | | results section. | + +--------+ +---+ + | EXTRA BLUE TOP TUBE | Routin | 02/27/2020 | | Results for this | | | e | 12:31 PM | | procedure are in the | | | | PDT | | results section. | + +--------+ +---+ + | EXTRA LAVENDER TOP | Routin | 02/27/2020 | | Results for this | | TUBE | e | 12:31 PM | | procedure are in the | | | | PDT | | results section. | + +--------+ +---+ + | EXTRA GREEN TOP TUBE | Routin | 02/27/2020 | | Results for this | | | e | 12:31 PM | | procedure are in the | | | | PDT | | results section. | + +--------+ +---+ + | TYPE AND SCREEN | STAT | 02/27/2020 | | Results for this | | | | 12:26 PM | | procedure are in the | | | | PDT | | results section. | + +--------+ +---+ + | B TYPE NATRIURETIC | Add-On | 02/27/2020 | | Results for this | | PEPTIDE | | 12:26 PM | | procedure are in the | | | | PDT | | results section. | + +--------+ +---+ + | LACTIC ACID | Routin | 02/27/2020 | | Results for this | | | e | 12:26 PM | | procedure are in the | | | | PDT | | results section. | + +--------+ +---+ + | ED INFORMATION | Routin | 02/27/2020 | | | | EXCHANGE | e | 12:07 PM | | | | | | PDT | | | + +--------+ +---+ + +---+--------+ | | | | | Proced | | | ure | | | Note - | | | Kobe, | | | Lab In | | | | | | Hlseve | | | n - | | | 05/24/ | | | 2020 | | | 12:08 | | | PM PDT | | | | | | [...] | | | FICATI | | | ON?05/ | | | 24/202 | | | 0 | | | 12:07? | | | CARLINE | | | , | | | ÁNGELA | | | J?MRN: | | | | | | [id number] | | | [id number] | | | riteri | | | [...] | | | d: | | | 04/19/ | | | 9 | | | [...] | | | endati | | | on:[place] | | | son | | | [...] | | | St. | | | [place] | | | y | | | [...] | | | s | | | [facility] | | | ED | | | Dispar | | | ity | | | Measur | | | e - | | | [place] | | | has | | | [...] | | | s. | | | [facility] | | | | | | Health [...] | | | By: | | | [facility] | | | | | | Health [...] MED | | | | | | 2019-0 | | | 7-22 | | | HYDROC | | | ODONE- | | | ACETAM | | | IN | | | 7.5-32 | | | 5 120 | | | MARIZA | | | SOTO 2 | | | 30 | | | 2019-0 | | | 6-22 | | | HYDROC | | | ODONE- | | | ACETAM | | | IN | | | 7.5-32 | | | 5 120 | | | MARIJA | | | | | | VICTORINO | | | 2 30 | | | Rx | | | Summar | | | yMetri | | | c | | | Count | | | CS | | | II-V | | | Rx 2 | | | CS-II | | | Rx 2 | | | Quanti | | | ty | | | Dispen | | | sed | | | 240 | | | Unique | | | | | | Prescr | | | ibers | | | 2 | | | Unique | | | | | | Pharma | | | cies 1 | | | | | | Benzos | | | 0 | | | Opioid | | | s 2 | | | Long | | | [...] | | Hospit | | | al 2 0 | | | | | | Provid | | | ence | | | St[facility] | | | [facility] | | Med[facility] | | | l | | | Center | | | 19 0 | | | [place] | | | | | | Genera | | | l | | | Hospit | | | al 1 0 | | | [facility] [place] | | | y | | | Hospit | | | al 3 0 | | | Total | | | 29 0 | | | Note: | | [...] | | out | | | of 31 | | | in the | | [...] | | | int | | | May | | | 24, | | | 2020 | | | Provid | | | ence | | | [facility] | [facility] | [place] | | | [place] | | | Emerge | | | ncy | | | Fall | | | May | | | 23, | | | 2020 | | | Provid | | | ence | | | [facility] | | | [facility] | [place] | | | [place] | | | Emerge | | | ncy | | | Fall | | | | | | Coagul | | | ation | | | Disord | | | er | | | Back | | | Pain | | | | | | Lacera | | | tion | | | withou | | | t | | | foreig | | | n body | | | of | | | right | | | back | | | wall | | | of | | | thorax | | | | | | Fall | | | on | | | same | | | level, | | | | | | unspec | | | ified, | | | | | | initia | | | l | | | encoun | | | ter | | | May 6, | | | 2020 | | | Provid | | | ence | | | [facility] | | | [facility] | [place] | | | [place] | | | Emerge | | | ncy | | | Hand | | | Swelli | | | ng | | | Iron | | | defici | | | ency | | | anemia | | | | | | second | | | [place] to | | | blood | | | loss | | | (chron | | | ic) | | | Acute | | | | | | emboli | | | sm and | | | | | | thromb | | | osis | | | of | | | deep | | | veins | | | of | | | left | | | upper | | | ext | | | | | | Chroni | | | c | | | obstru | | | ctive | | | pulmon | | | [place] | | | diseas | | | e, | | | unspec | | | ified | | | | | | Acute | | | emboli | | | sm and | | | | | | thromb | | | osis | | | of | | | left | | | axilla | | | ry | | | vein | | | Apr | | | 27, | | | 2020 | | | Provid | | | ence | | | [facility] | | | [facility] | [place] | | | [place] | | | Emerge | | | ncy | | | Skin | | | Ulcer | | | | | | Shortn | | | ess of | | | | | | Breath | | | | | | Acute | | | systol | | | ic | | | (conge | | | stive) | | | heart | | | | | | failur | | | e | | | Pressu | | | re-ind | | | uced | | | deep | | | tissue | | | | | | damage | | | of | | | sacral | | | | | | region | | | | | | Acute | | | respir | | | atory | | | failur | | | e with | | | | | | hypoxi | | | a | | | Other | | | specif | | | ied | | | abnorm | | | al | | | findin | | | gs of | | | blood | | | chemis | | | try | | | | | | Cyclic | | | al | | | vomiti | | | ng | | | syndro | | | me | | | unrela | | | yoel to | | | | | | migrai | | | ne | | | Mar | | | 22, | | | 2020 | | | [facility] [place] | | | [facility] | | [...] | | | St. | | | [place] | | | y H. | | [...] | | e of | | | [place] | | | | | | palencia | | | ry | | | artery | | | witho | | | | | | Recent [...] | | | int | | | May 6, | | | 2020 | | | Provid | | | ence | | | [facility] | | | [facility] [place] | | | [place] | | | Surgic | | | al | | | Servic | | | es | | | Acute | | | emboli | | | sm and | | | | | | thromb | | | osis | | | of | | | left | | | axilla | | | ry | | | vein | | | | | | Acute | | | emboli | | | sm and | | | | | | thromb | | | osis | | | of | | | deep | | | veins | | | of | | | left | | | upper | | | ext | | | | | | Chroni | | | c | | | obstru | | | ctive | | | pulmon | | | [place] | | | diseas | | | e, | | | unspec | | | ified | | | | | | Iron | | | defici | | | ency | | | anemia | | | | | | second | | | [place] to | | | blood | | | loss | | | (chron | | | ic) | | | | | | Pressu | | | re | | | ulcer | | | of | | | sacral | | | | | | region | | | , | | | stage | | | 2 | | | Acute | | | on | | | chroni | | | c | | | combin | | | ed | | | systol | | | ic | | | (conge | | | stive) | | | and | | | diasto | | | lic | | | | | | Pressu | | | re | | | ulcer | | | of | | | sacral | | | | | | region | | | , | | | stage | | | 3 Apr | | | 27, | | | 2020 | | | Provid | | | ence | | | [facility] | | [facility] [place] | | | [place] | | | Surgic | | | al | | | Servic | | | es | | | Acute | | | respir | | | atory | | | failur | | | e with | | | | | | hypoxi | | | a | | | Acute | | | systol | | | ic | | | (conge | | | stive) | | | heart | | | | | | failur | | | e | | | Other | | | specif | | | ied | | | abnorm | | | al | | | findin | | | gs of | | | blood | | | chemis | | | try | | | | | | Cyclic | | | al | | | vomiti | | | ng | | | syndro | | | me | | | unrela | | | yoel to | | | | | | migrai | | | ne | | | Pressu | | | re-ind | | | uced | | | deep | | | tissue | | | | | | damage | | | of | | | sacral | | | | | | region | | | | | | Noninf | | | ective | | | | | | gastro | | | enteri | | | tis | | | and | | | coliti | | | s, | | | unspec | | | ified | | | | | | [place] | | | lic | | | enceph | | | alopat | | | hy | | | Anxiet | | | y | | | disord | | | er, | | | unspec | | | ified | | | | | | Encoun | | | ter | | | for | | | pallia | | | tive | | | care | | | | | | Other | | | specif | | | ied | | | counse | | | ling | | | Feb | | | [...] | | e of | | | [place] | | | | | | palencia [...] | | e of | | | [place] | | | | | | palencia [...] | | | 2019 | | | [place] | | | | | | Genera [...] | | | pain | | | Care | | | [...] | | | M.D. | | | Dry Ice Maker | | | al | | | [...] | | | otify/ | | | [id number] | | | [phone] | | | [phone] | | | [phone] | | | [id number] | | | [phone] | | | | | | PLEASE [...] | | | ed.? | | | 2019 | | | [employer] | | | tive | | | Medica | | | l | | | [employer] | | | logies | | | , Inc[employer] | | | - | | | [email or web address] | | | llecti | | | vemedi | | | [email or web address] | | | m | +---+--------+ + +--------+ +---+ + | CT HEAD WO CONTRAST | STAT | 02/26/2020 | | Results for this | | | | 5:52 PM | | procedure are in the | | | | PDT | | results section. | + +--------+ +---+ + | ED INFORMATION | Routin | 02/26/2020 | | | | EXCHANGE | e | 5:13 PM | | | | | | PDT | | | + +--------+ +---+ + +---+--------+ | | | | | Proced | | | ure | | | Note - | | | Kobe, | | | Lab In | | | | | | Hlseve | | | n - | | | 02/25/ | | | 2019 | | | 5:14 | | | PM PDT | | | | | | [...] | | | FICATI | | | ON?05/ | | | | | | 0 | | | 17:12? | | | CARLINE | | | , | | | ÁNGELA | | | J?MRN: | | | | | | [id number] | | | [id number] | | | riteri | | | a Met | | | Care | | | Guidel | | | inesSe | | | curity | | | and | | | [...] | | | d: | | | | | | 9 | | | [...] | | | St. | | | [place] | | | y | | | [...] | | | s | | | [place] | | | ED | | | Dispar | | | ity | | | Measur | | | e - | | | [facility] | | | has | | | [...] | | | s. | | | [facility] | | | | | | Health [...] | | | By: | | | [facility] | | | | | | Health [...] MED | | | | | | 2019-0 | | | 7-22 | | | HYDROC | | | ODONE- | | | ACETAM | | | IN | | | 7.5-32 | | | 5 120 | | | MARIZA | | | SOTO 2 | | | 30 | | | 2019-0 | | | 6-22 | | | HYDROC | | | ODONE- | | | ACETAM | | | IN | | | 7.5-32 | | | 5 120 | | | MARIJA | | | | | | VICTORINO | | | 2 30 | | | Rx | | | Summar | | | yMetri | | | c | | | Count | | | CS | | | II-V | | | Rx 2 | | | CS-II | | | Rx 2 | | | Quanti | | | ty | | | Dispen | | | sed | | | 240 | | | Unique | | | | | | Prescr | | | ibers | | | 2 | | | Unique | | | | | | Pharma | | | cies 1 | | | | | | Benzos | | | 0 | | | Opioid | | | s 2 | | | Long | | | [...] | | Hospit | | | al 2 0 | | | | | | Provid | | | ence | | | St[facility] | | | [facility] | | | l | | | Center | | | 18 0 | | | [place] | | | | | | Genera | | | l | | | Hospit | | | al 1 0 | | | [facility] | [facility] | [place] | | | y | | | Hospit | | | al 3 0 | | | Total | | | 28 0 | | | Note: | | [...] | | out | | | of 30 | | | in the | | [...] | | | int | | | May | | | 23, | | | 2020 | | | Provid | | | ence | | | [facility] | [facility] | [place] | | | [place] | | | Emerge | | | ncy | | | May 6, | | | 2020 | | | Provid | | | ence | | | [facility] | | [facility] | [place] | | | [place] | | | Emerge | | | ncy | | | Hand | | | Swelli | | | ng | | | Iron | | | defici | | | ency | | | anemia | | | | | | second | | | [place] to | | | blood | | | loss | | | (chron | | | ic) | | | Acute | | | | | | emboli | | | sm and | | | | | | thromb | | | osis | | | of | | | deep | | | veins | | | of | | | left | | | upper | | | ext | | | | | | Chroni | | | c | | | obstru | | | ctive | | | pulmon | | | [place] | | | diseas | | | e, | | | unspec | | | ified | | | | | | Acute | | | emboli | | | sm and | | | | | | thromb | | | osis | | | of | | | left | | | axilla | | | ry | | | vein | | | Apr | | | 27, | | | 2020 | | | Provid | | | ence | | | [facility] | | [facility] | [place] | | | [place] | | | Emerge | | | ncy | | | Skin | | | Ulcer | | | | | | Shortn | | | ess of | | | | | | Breath | | | | | | Acute | | | systol | | | ic | | | (conge | | | stive) | | | heart | | | | | | failur | | | e | | | Pressu | | | re-ind | | | uced | | | deep | | | tissue | | | | | | damage | | | of | | | sacral | | | | | | region | | | | | | Acute | | | respir | | | atory | | | failur | | | e with | | | | | | hypoxi | | | a | | | Other | | | specif | | | ied | | | abnorm | | | al | | | findin | | | gs of | | | blood | | | chemis | | | try | | | | | | Cyclic | | | al | | | vomiti | | | ng | | | syndro | | | me | | | unrela | | | yoel to | | | | | | migrai | | | ne | | | Mar | | | 22, | | | 2020 | | | [facility] | [facility] | | | [place] | | | [facility] | | [...] | | | St[facility] | | | [place] | | | [facility] | | [...] | | e of | | | [place] | | | | | | palencia [...] | | | int | | | May 6, | | | 2020 | | | Provid | | | ence | | | [facility] | | | [facility] | | | [place] | | | [place] | | | Surgic | | | al | | | Servic | | | es | | | Acute | | | emboli | | | sm and | | | | | | thromb | | | osis | | | of | | | left | | | axilla | | | ry | | | vein | | | | | | Acute | | | emboli | | | sm and | | | | | | thromb | | | osis | | | of | | | deep | | | veins | | | of | | | left | | | upper | | | ext | | | | | | Chroni | | | c | | | obstru | | | ctive | | | pulmon | | | [place] | | | diseas | | | e, | | | unspec | | | ified | | | | | | Iron | | | defici | | | ency | | | anemia | | | | | | second | | | [place] to | | | blood | | | loss | | | (chron | | | ic) | | | | | | Pressu | | | re | | | ulcer | | | of | | | sacral | | | | | | region | | | , | | | stage | | | 2 | | | Acute | | | on | | | chroni | | | c | | | combin | | | ed | | | systol | | | ic | | | (conge | | | stive) | | | and | | | diasto | | | lic | | | | | | Pressu | | | re | | | ulcer | | | of | | | sacral | | | | | | region | | | , | | | stage | | | 3 Apr | | | 27, | | | 2020 | | | Provid | | | ence | | | [facility] | | | [facility] | | [place] | | | [place] | | | Surgic | | | al | | | Servic | | | es | | | Acute | | | respir | | | atory | | | failur | | | e with | | | | | | hypoxi | | | a | | | Acute | | | systol | | | ic | | | (conge | | | stive) | | | heart | | | | | | failur | | | e | | | Other | | | specif | | | ied | | | abnorm | | | al | | | findin | | | gs of | | | blood | | | chemis | | | try | | | | | | Cyclic | | | al | | | vomiti | | | ng | | | syndro | | | me | | | unrela | | | yoel to | | | | | | migrai | | | ne | | | Pressu | | | re-ind | | | uced | | | deep | | | tissue | | | | | | damage | | | of | | | sacral | | | | | | region | | | | | | Noninf | | | ective | | | | | | gastro | | | enteri | | | tis | | | and | | | coliti | | | s, | | | unspec | | | ified | | | | | | [place] | | | lic | | | enceph | | | alopat | | | hy | | | Anxiet | | | y | | | disord | | | er, | | | unspec | | | ified | | | | | | Encoun | | | ter | | | for | | | pallia | | | tive | | | care | | | | | | Other | | | specif | | | ied | | | counse | | | ling | | | Feb | | | [...] | | e of | | | [place] | | | | | | [place] [...] | | e of | | | [place] | | | | | | pal[place] [...] | | | 2019 | | | [place] | | | | | | Genera [...] | | | pain | | | Care | | | [...] | | | 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 | + +--------+ +---+ + | POC GLUCOSE | Routin | 02/24/2020 | | Results for this | | | e | 6:14 AM | | procedure are in the | | | | PDT | | results section. | + +--------+ +---+ + | COMPREHENSIVE | Routin | 02/24/2020 | | Results for this | | METABOLIC PANEL | e | 5:28 AM | | procedure are in the | | | | PDT | | results section. | + +--------+ +---+ + | C-REACTIVE PROTEIN | Routin | 02/24/2020 | | Results for this | | | e | 5:28 AM | | procedure are in the | | | | PDT | | results section. | + +--------+ +---+ + | CBC WITH | Routin | 02/24/2020 | | Results for this | | DIFFERENTIAL | e | 5:28 AM | | procedure are in the | | | | PDT | | results section. | + +--------+ +---+ + | POC GLUCOSE | Routin | 02/23/2020 | | Results for this | | | e | 8:36 PM | | procedure are in the | | | | PDT | | results section. | + +--------+ +---+ + | POC GLUCOSE | Routin | 02/23/2020 | | Results for this | | | e | 4:23 PM | | procedure are in the | | | | PDT | | results section. | + +--------+ +---+ + | POC GLUCOSE | Routin | 02/23/2020 | | Results for this | | | e | 11:39 AM | | procedure are in the | | | | PDT | | results section. | + +--------+ +---+ + | POC GLUCOSE | Routin | 02/23/2020 | | Results for this | | | e | 7:02 AM | | procedure are in the | | | | PDT | | results section. | + +--------+ +---+ + | BASIC METABOLIC | Routin | 02/23/2020 | | Results for this | | PANEL | e | 5:37 AM | | procedure are in the | | | | PDT | | results section. | + +--------+ +---+ + | CBC NO DIFFERENTIAL | Routin | 02/23/2020 | | Results for this | | | e | 5:37 AM | | procedure are in the | | | | PDT | | results section. | + +--------+ +---+ + | POC GLUCOSE | Routin | 02/22/2020 | | Results for this | | | e | 9:57 PM | | procedure are in the | | | | PDT | | results section. | + +--------+ +---+ + | POC GLUCOSE | Routin | 02/22/2020 | | Results for this | | | e | 4:44 PM | | procedure are in the | | | | PDT | | results section. | + +--------+ +---+ + | POC GLUCOSE | Routin | 02/22/2020 | | Results for this | | | e | 11:53 AM | | procedure are in the | | | | PDT | | results section. | + +--------+ +---+ + | COVID-19 STAT | STAT | 02/22/2020 | | | | INSTRUCTION TO | | 10:45 AM | | | | [facility] ONLY | | PDT | | | + +--------+ +---+ + | CORONAVIRUS | Routin | 02/22/2020 | | Results for this | | (COVID-19) NAAT | e | 10:45 AM | | procedure are in the | | | | PDT | | results section. | + +--------+ +---+ + | POC GLUCOSE | Routin | 02/22/2020 | | Results for this | | | e | 6:32 AM | | procedure are in the | | | | PDT | | results section. | + +--------+ +---+ + | CBC NO DIFFERENTIAL | Routin | 02/22/2020 | | Results for this | | | e | 6:03 AM | | procedure are in the | | | | PDT | | results section. | + +--------+ +---+ + | BASIC METABOLIC | Routin | 02/22/2020 | | Results for this | | PANEL | e | 6:02 AM | | procedure are in the | | | | PDT | | results section. | + +--------+ +---+ + | MAGNESIUM | Routin | 02/22/2020 | | Results for this | | | e | 6:02 AM | | procedure are in the | | | | PDT | | results section. | + +--------+ +---+ + | POC GLUCOSE | Routin | 02/21/2020 | | Results for this | | | e | 9:20 PM | | procedure are in the | | | | PDT | | results section. | + +--------+ +---+ + | POC GLUCOSE | Routin | 02/21/2020 | | Results for this | | | e | 4:28 PM | | procedure are in the | | | | PDT | | results section. | + +--------+ +---+ + | POC GLUCOSE | Routin | 02/21/2020 | | Results for this | | | e | 11:34 AM | | procedure are in the | | | | PDT | | results section. | + +--------+ +---+ + | POC GLUCOSE | Routin | 02/21/2020 | | Results for this | | | e | 6:31 AM | | procedure are in the | | | | PDT | | results section. | + +--------+ +---+ + | MAGNESIUM | Routin | 02/21/2020 | | Results for this | | | e | 5:51 AM | | procedure are in the | | | | PDT | | results section. | + +--------+ +---+ + | COMPREHENSIVE | Routin | 02/21/2020 | | Results for this | | METABOLIC PANEL | e | 5:51 AM | | procedure are in the | | | | PDT | | results section. | + +--------+ +---+ + | B TYPE NATRIURETIC | Routin | 02/21/2020 | | Results for this | | PEPTIDE | e | 5:51 AM | | procedure are in the | | | | PDT | | results section. | + +--------+ +---+ + | CBC NO DIFFERENTIAL | Routin | 02/21/2020 | | Results for this | | | e | 5:51 AM | | procedure are in the | | | | PDT | | results section. | + +--------+ +---+ + | POC GLUCOSE | Routin | 02/20/2020 | | Results for this | | | e | 9:57 PM | | procedure are in the | | | | PDT | | results section. | + +--------+ +---+ + | POC GLUCOSE | Routin | 02/20/2020 | | Results for this | | | e | 5:02 PM | | procedure are in the | | | | PDT | | results section. | + +--------+ +---+ + | POC GLUCOSE | Routin | 02/20/2020 | | Results for this | | | e | 11:35 AM | | procedure are in the | | | | PDT | | results section. | + +--------+ +---+ + | CULTURE, BLOOD | Routin | 02/20/2020 | | Results for this | | | e | 8:19 AM | | procedure are in the | | | | PDT | | results section. | + +--------+ +---+ + | CULTURE, BLOOD | Routin | 02/20/2020 | | Results for this | | | e | 6:28 AM | | procedure are in the | | | | PDT | | results section. | + +--------+ +---+ + | POC GLUCOSE | Routin | 02/20/2020 | | Results for this | | | e | 6:27 AM | | procedure are in the | | | | PDT | | results section. | + +--------+ +---+ + | MAGNESIUM | Routin | 02/20/2020 | | Results for this | | | e | 5:47 AM | | procedure are in the | | | | PDT | | results section. | + +--------+ +---+ + | COMPREHENSIVE | Routin | 02/20/2020 | | Results for this | | METABOLIC PANEL | e | 5:47 AM | | procedure are in the | | | | PDT | | results section. | + +--------+ +---+ + | B TYPE NATRIURETIC | Routin | 02/20/2020 | | Results for this | | PEPTIDE | e | 5:47 AM | | procedure are in the | | | | PDT | | results section. | + +--------+ +---+ + | CBC NO DIFFERENTIAL | Routin | 02/20/2020 | | Results for this | | | e | 5:47 AM | | procedure are in the | | | | PDT | | results section. | + +--------+ +---+ + | POC GLUCOSE | Routin | 02/19/2020 | | Results for this | | | e | 8:06 PM | | procedure are in the | | | | PDT | | results section. | + +--------+ +---+ + | POC GLUCOSE | Routin | 02/19/2020 | | Results for this | | | e | 4:19 PM | | procedure are in the | | | | PDT | | results section. | + +--------+ +---+ + | POC GLUCOSE | Routin | 02/19/2020 | | Results for this | | | e | 11:20 AM | | procedure are in the | | | | PDT | | results section. | + +--------+ +---+ + | POC GLUCOSE | Routin | 02/19/2020 | | Results for this | | | e | 6:11 AM | | procedure are in the | | | | PDT | | results section. | + +--------+ +---+ + | COMPREHENSIVE | Routin | 02/19/2020 | | Results for this | | METABOLIC PANEL | e | 5:35 AM | | procedure are in the | | | | PDT | | results section. | + +--------+ +---+ + | MAGNESIUM | Routin | 02/19/2020 | | Results for this | | | e | 5:35 AM | | procedure are in the | | | | PDT | | results section. | + +--------+ +---+ + | B TYPE NATRIURETIC | Routin | 02/19/2020 | | Results for this | | PEPTIDE | e | 5:35 AM | | procedure are in the | | | | PDT | | results section. | + +--------+ +---+ + | CBC NO DIFFERENTIAL | Routin | 02/19/2020 | | Results for this | | | e | 5:35 AM | | procedure are in the | | | | PDT | | results section. | + +--------+ +---+ + | POC GLUCOSE | Routin | 02/18/2020 | | Results for this | | | e | 8:56 PM | | procedure are in the | | | | PDT | | results section. | + +--------+ +---+ + | POC GLUCOSE | Routin | 02/18/2020 | | Results for this | | | e | 5:05 PM | | procedure are in the | | | | PDT | | results section. | + +--------+ +---+ + | POC GLUCOSE | Routin | 02/18/2020 | | Results for this | | | e | 11:54 AM | | procedure are in the | | | | PDT | | results section. | + +--------+ +---+ + | POC GLUCOSE | Routin | 02/18/2020 | | Results for this | | | e | 6:57 AM | | procedure are in the | | | | PDT | | results section. | + +--------+ +---+ + | HEPATIC FUNCTION | Add-On | 02/18/2020 | | Results for this | | PANEL | | 6:23 AM | | procedure are in the | | | | PDT | | results section. | + +--------+ +---+ + | LIPASE | Add-On | 02/18/2020 | | Results for this | | | | 6:23 AM | | procedure are in the | | | | PDT | | results section. | + +--------+ +---+ + | MAGNESIUM | Routin | 02/18/2020 | | Results for this | | | e | 6:23 AM | | procedure are in the | | | | PDT | | results section. | + +--------+ +---+ + | B TYPE NATRIURETIC | Routin | 02/18/2020 | | Results for this | | PEPTIDE | e | 6:23 AM | | procedure are in the | | | | PDT | | results section. | + +--------+ +---+ + | CBC NO DIFFERENTIAL | Routin | 02/18/2020 | | Results for this | | | e | 6:23 AM | | procedure are in the | | | | PDT | | results section. | + +--------+ +---+ + | BASIC METABOLIC | Routin | 02/18/2020 | | Results for this | | PANEL | e | 6:23 AM | | procedure are in the | | | | PDT | | results section. | + +--------+ +---+ + | POC GLUCOSE | Routin | 02/17/2020 | | Results for this | | | e | 8:29 PM | | procedure are in the | | | | PDT | | results section. | + +--------+ +---+ + | HEMOGLOBIN AND | Routin | 02/17/2020 | | Results for this | | HEMATOCRIT | e | 6:17 PM | | procedure are in the | | | | PDT | | results section. | + +--------+ +---+ + | POC GLUCOSE | Routin | 02/17/2020 | | Results for this | | | e | 4:49 PM | | procedure are in the | | | | PDT | | results section. | + +--------+ +---+ + | XR CHEST AP PORTABLE | STAT | 02/17/2020 | | Results for this | | | | 1:35 PM | | procedure are in the | | | | PDT | | results section. | + +--------+ +---+ + | POC GLUCOSE | Routin | 02/17/2020 | | Results for this | | | e | 11:55 AM | | procedure are in the | | | | PDT | | results section. | + +--------+ +---+ + | PRODUCT: RBC | Routin | 02/17/2020 | | Results for this | | | e | 11:37 AM | | procedure are in the | | | | PDT | | results section. | + +--------+ +---+ + | POC GLUCOSE | Routin | 02/17/2020 | | Results for this | | | e | 6:45 AM | | procedure are in the | | | | PDT | | results section. | + +--------+ +---+ + | TYPE AND SCREEN | Routin | 02/17/2020 | | Results for this | | | e | 6:35 AM | | procedure are in the | | | | PDT | | results section. | + +--------+ +---+ + | MAGNESIUM | Routin | 02/17/2020 | | Results for this | | | e | 5:44 AM | | procedure are in the | | | | PDT | | results section. | + +--------+ +---+ + | B TYPE NATRIURETIC | Routin | 02/17/2020 | | Results for this | | PEPTIDE | e | 5:44 AM | | procedure are in the | | | | PDT | | results section. | + +--------+ +---+ + | CBC NO DIFFERENTIAL | Routin | 02/17/2020 | | Results for this | | | e | 5:44 AM | | procedure are in the | | | | PDT | | results section. | + +--------+ +---+ + | BASIC METABOLIC | Routin | 02/17/2020 | | Results for this | | PANEL | e | 5:44 AM | | procedure are in the | | | | PDT | | results section. | + +--------+ +---+ + | POC GLUCOSE | Routin | 02/16/2020 | | Results for this | | | e | 8:50 PM | | procedure are in the | | | | PDT | | results section. | + +--------+ +---+ + | POC GLUCOSE | Routin | 02/16/2020 | | Results for this | | | e | 4:37 PM | | procedure are in the | | | | PDT | | results section. | + +--------+ +---+ + | CULTURE, ANAEROBIC | Routin | 02/16/2020 | | Results for this | | | e | 1:37 PM | | procedure are in the | | | | PDT | | results section. | + +--------+ +---+ + | CULTURE, WOUND, | Routin | 02/16/2020 | | Results for this | | SMEAR | e | 1:37 PM | | procedure are in the | | | | PDT | | results section. | + +--------+ +---+ + | CULTURE, WOUND, | Routin | 02/16/2020 | | Results for this | | SMEAR | e | 1:37 PM | | procedure are in the | | | | PDT | | results section. | + +--------+ +---+ + | HEMOGLOBIN AND | Routin | 02/16/2020 | | Results for this | | HEMATOCRIT | e | 12:02 PM | | procedure are in the | | | | PDT | | results section. | + +--------+ +---+ + | POC GLUCOSE | Routin | 02/16/2020 | | Results for this | | | e | 11:21 AM | | procedure are in the | | | | PDT | | results section. | + +--------+ +---+ + | POC GLUCOSE | Routin | 02/16/2020 | | Results for this | | | e | 6:55 AM | | procedure are in the | | | | PDT | | results section. | + +--------+ +---+ + | CBC NO DIFFERENTIAL | Routin | 02/16/2020 | | Results for this | | | e | 5:07 AM | | procedure are in the | | | | PDT | | results section. | + +--------+ +---+ + | B TYPE NATRIURETIC | Routin | 02/16/2020 | | Results for this | | PEPTIDE | e | 5:06 AM | | procedure are in the | | | | PDT | | results section. | + +--------+ +---+ + | BASIC METABOLIC | Routin | 02/16/2020 | | Results for this | | PANEL | e | 5:06 AM | | procedure are in the | | | | PDT | | results section. | + +--------+ +---+ + | POC GLUCOSE | Routin | 02/15/2020 | | Results for this | | | e | 9:17 PM | | procedure are in the | | | | PDT | | results section. | + +--------+ +---+ + | POC GLUCOSE | Routin | 02/15/2020 | | Results for this | | | e | 5:14 PM | | procedure are in the | | | | PDT | | results section. | + +--------+ +---+ + | POC GLUCOSE | Routin | 02/15/2020 | | Results for this | | | e | 11:27 AM | | procedure are in the | | | | PDT | | results section. | + +--------+ +---+ + | B TYPE NATRIURETIC | Routin | 02/15/2020 | | Results for this | | PEPTIDE | e | 5:30 AM | | procedure are in the | | | | PDT | | results section. | + +--------+ +---+ + | CBC NO DIFFERENTIAL | Routin | 02/15/2020 | | Results for this | | | e | 5:30 AM | | procedure are in the | | | | PDT | | results section. | + +--------+ +---+ + | BASIC METABOLIC | Routin | 02/15/2020 | | Results for this | | PANEL | e | 5:30 AM | | procedure are in the | | | | PDT | | results section. | + +--------+ +---+ + | POC GLUCOSE | Routin | 02/14/2020 | | Results for this | | | e | 9:30 PM | | procedure are in the | | | | PDT | | results section. | + +--------+ +---+ + | XR CHEST PA AND | STAT | 02/14/2020 | | Results for this | | LATERAL | | 5:16 PM | | procedure are in the | | | | PDT | | results section. | + +--------+ +---+ + | POC GLUCOSE | Routin | 02/14/2020 | | Results for this | | | e | 4:46 PM | | procedure are in the | | | | PDT | | results section. | + +--------+ +---+ + | ECHO COMPLETE | LAUREN | 02/14/2020 | | Results for this | | | | 3:53 PM | | procedure are in the | | | | PDT | | results section. | + +--------+ +---+ + | POC GLUCOSE | Routin | 02/14/2020 | | Results for this | | | e | 11:40 AM | | procedure are in the | | | | PDT | | results section. | + +--------+ +---+ + | POC GLUCOSE | Routin | 02/14/2020 | | Results for this | | | e | 6:39 AM | | procedure are in the | | | | PDT | | results section. | + +--------+ +---+ + | B TYPE NATRIURETIC | Routin | 02/14/2020 | | Results for this | | PEPTIDE | e | 5:15 AM | | procedure are in the | | | | PDT | | results section. | + +--------+ +---+ + | CBC NO DIFFERENTIAL | Routin | 02/14/2020 | | Results for this | | | e | 5:15 AM | | procedure are in the | | | | PDT | | results section. | + +--------+ +---+ + | BASIC METABOLIC | Routin | 02/14/2020 | | Results for this | | PANEL | e | 5:15 AM | | procedure are in the | | | | PDT | | results section. | + +--------+ +---+ + | POC GLUCOSE | Routin | 02/13/2020 | | Results for this | | | e | 8:57 PM | | procedure are in the | | | | PDT | | results section. | + +--------+ +---+ + | POC GLUCOSE | Routin | 02/13/2020 | | Results for this | | | e | 5:14 PM | | procedure are in the | | | | PDT | | results section. | + +--------+ +---+ + | CBC NO DIFFERENTIAL | STAT | 02/13/2020 | | Results for this | | | | 2:52 PM | | procedure are in the | | | | PDT | | results section. | + +--------+ +---+ + | B TYPE NATRIURETIC | STAT | 02/13/2020 | | Results for this | | PEPTIDE | | 2:52 PM | | procedure are in the | | | | PDT | | results section. | + +--------+ +---+ + | BASIC METABOLIC | STAT | 02/13/2020 | | Results for this | | PANEL | | 2:52 PM | | procedure are in the | | | | PDT | | results section. | + +--------+ +---+ + | POC GLUCOSE | Routin | 02/13/2020 | | Results for this | | | e | 11:54 AM | | procedure are in the | | | | PDT | | results section. | + +--------+ +---+ + | CBC NO DIFFERENTIAL | Routin | 02/13/2020 | | Results for this | | | e | 5:51 AM | | procedure are in the | | | | PDT | | results section. | + +--------+ +---+ + | BASIC METABOLIC | Routin | 02/13/2020 | | Results for this | | PANEL | e | 5:51 AM | | procedure are in the | | | | PDT | | results section. | + +--------+ +---+ + | POC GLUCOSE | Routin | 02/13/2020 | | Results for this | | | e | 5:35 AM | | procedure are in the | | | | PDT | | results section. | + +--------+ +---+ + | POC GLUCOSE | Routin | 02/12/2020 | | Results for this | | | e | 8:11 PM | | procedure are in the | | | | PDT | | results section. | + +--------+ +---+ + | POC GLUCOSE | Routin | 02/12/2020 | | Results for this | | | e | 5:10 PM | | procedure are in the | | | | PDT | | results section. | + +--------+ +---+ + | COVID-19 STAT | STAT | 02/12/2020 | | | | INSTRUCTION TO | | 4:15 PM | | | | [facility] ONLY | | PDT | | | + +--------+ +---+ + | CORONAVIRUS | Routin | 02/12/2020 | | Results for this | | (COVID-19) NAAT | e | 4:15 PM | | procedure are in the | | | | PDT | | results section. | + +--------+ +---+ + | CBC NO DIFFERENTIAL | Routin | 02/12/2020 | | Results for this | | | e | 3:34 PM | | procedure are in the | | | | PDT | | results section. | + +--------+ +---+ + | POC GLUCOSE | Routin | 02/12/2020 | | Results for this | | | e | 11:49 AM | | procedure are in the | | | | PDT | | results section. | + +--------+ +---+ + | POC GLUCOSE | Routin | 02/12/2020 | | Results for this | | | e | 6:21 AM | | procedure are in the | | | | PDT | | results section. | + +--------+ +---+ + | CBC NO DIFFERENTIAL | Routin | 02/11/2020 | | Results for this | | | e | 8:21 PM | | procedure are in the | | | | PDT | | results section. | + +--------+ +---+ + | POC GLUCOSE | Routin | 02/11/2020 | | Results for this | | | e | 8:19 PM | | procedure are in the | | | | PDT | | results section. | + +--------+ +---+ + | POC GLUCOSE | Routin | 02/11/2020 | | Results for this | | | e | 5:22 PM | | procedure are in the | | | | PDT | | results section. | + +--------+ +---+ + | B TYPE NATRIURETIC | Routin | 02/11/2020 | | Results for this | | PEPTIDE | e | 2:40 PM | | procedure are in the | | | | PDT | | results section. | + +--------+ +---+ + | CBC NO DIFFERENTIAL | Routin | 02/11/2020 | | Results for this | | | e | 2:40 PM | | procedure are in the | | | | PDT | | results section. | + +--------+ +---+ + | XR CHEST AP PORTABLE | STAT | 02/11/2020 | | Results for this | | | | 2:35 PM | | procedure are in the | | | | PDT | | results section. | + +--------+ +---+ + | POC GLUCOSE | Routin | 02/11/2020 | | Results for this | | | e | 12:08 PM | | procedure are in the | | | | PDT | | results section. | + +--------+ +---+ + | CBC NO DIFFERENTIAL | Routin | 02/11/2020 | | Results for this | | | e | 8:30 AM | | procedure are in the | | | | PDT | | results section. | + +--------+ +---+ + | POC GLUCOSE | Routin | 02/11/2020 | | Results for this | | | e | 6:11 AM | | procedure are in the | | | | PDT | | results section. | + +--------+ +---+ + | BASIC METABOLIC | Routin | 02/11/2020 | | Results for this | | PANEL | e | 2:43 AM | | procedure are in the | | | | PDT | | results section. | + +--------+ +---+ + | CBC NO DIFFERENTIAL | Routin | 02/11/2020 | | Results for this | | | e | 2:43 AM | | procedure are in the | | | | PDT | | results section. | + +--------+ +---+ + | POC GLUCOSE | Routin | 02/10/2020 | | Results for this | | | e | 9:57 PM | | procedure are in the | | | | PDT | | results section. | + +--------+ +---+ + | CBC NO DIFFERENTIAL | Routin | 02/10/2020 | | Results for this | | | e | 8:02 PM | | procedure are in the | | | | PDT | | results section. | + +--------+ +---+ + | POC GLUCOSE | Routin | 02/10/2020 | | Results for this | | | e | 4:39 PM | | procedure are in the | | | | PDT | | results section. | + +--------+ +---+ + | CBC NO DIFFERENTIAL | Routin | 02/10/2020 | | Results for this | | | e | 2:54 PM | | procedure are in the | | | | PDT | | results section. | + +--------+ +---+ + | PRODUCT: RBC | Routin | 02/10/2020 | | Results for this | | | e | 1:46 PM | | procedure are in the | | | | PDT | | results section. | + +--------+ +---+ + | POC GLUCOSE | Routin | 02/10/2020 | | Results for this | | | e | 11:41 AM | | procedure are in the | | | | PDT | | results section. | + +--------+ +---+ + | CBC NO DIFFERENTIAL | Routin | 02/10/2020 | | Results for this | | | e | 10:17 AM | | procedure are in the | | | | PDT | | results section. | + +--------+ +---+ + | POC GLUCOSE | Routin | 02/10/2020 | | Results for this | | | e | 6:19 AM | | procedure are in the | | | | PDT | | results section. | + +--------+ +---+ + | TYPE AND SCREEN | Routin | 02/10/2020 | | Results for this | | | e | 5:48 AM | | procedure are in the | | | | PDT | | results section. | + +--------+ +---+ + | CBC NO DIFFERENTIAL | Routin | 02/10/2020 | | Results for this | | | e | 5:48 AM | | procedure are in the | | | | PDT | | results section. | + +--------+ +---+ + | PROTIME INR | Routin | 02/10/2020 | | Results for this | | | e | 5:48 AM | | procedure are in the | | | | PDT | | results section. | + +--------+ +---+ + | BASIC METABOLIC | Routin | 02/10/2020 | | Results for this | | PANEL | e | 5:48 AM | | procedure are in the | | | | PDT | | results section. | + +--------+ +---+ + | CT CHEST WO CONTRAST | STAT | 02/09/2020 | | Results for this | | | | 11:01 PM | | procedure are in the | | | | PDT | | results section. | + +--------+ +---+ + | POCT OCCULT BLOOD | STAT | 02/09/2020 | | Results for this | | STOOL, OTHER THAN | | 10:18 PM | | procedure are in the | | COLORECTAL NEOPLASM | | PDT | | results section. | | SCREENING | | | | | + +--------+ +---+ + | PROTIME INR | STAT | 02/09/2020 | | Results for this | | | | 10:17 PM | | procedure are in the | | | | PDT | | results section. | + +--------+ +---+ + | PTT | STAT | 02/09/2020 | | Results for this | | | | 10:17 PM | | procedure are in the | | | | PDT | | results section. | + +--------+ +---+ + | EXTRA BLUE TOP TUBE | STAT | 02/09/2020 | | Results for this | | | | 10:17 PM | | procedure are in the | | | | PDT | | results section. | + +--------+ +---+ + | COMPREHENSIVE | STAT | 02/09/2020 | | Results for this | | METABOLIC PANEL | | 10:17 PM | | procedure are in the | | | | PDT | | results section. | + +--------+ +---+ + | CBC WITH | STAT | 02/09/2020 | | Results for this | | DIFFERENTIAL | | 10:17 PM | | procedure are in the | | | | PDT | | results section. | + +--------+ +---+ + | VAS UPPER EXTREMITY | STAT | 02/09/2020 | | Results for this | | VENOUS LEFT | | 8:05 PM | | procedure are in the | | | | PDT | | results section. | + +--------+ +---+ + | ED INFORMATION | Routin | 02/09/2020 | | | | EXCHANGE | e | 6:26 PM | | | | | | PDT | | | + +--------+ +---+ + +---+--------+ | | | | | Proced | | | ure | | | Note - | | | [place], | | | Lab In | | | | | | [facility] | | | n - | | | 05/06/ | | | 2020 | | | 6:27 | | | PM PDT | | | | | | [...] | | | FICATI | | | ON?05/ | | | 06/202 | | | 0 | | | 18:25? | | | CARLINE | | | , | | | ÁNGELA | | | J?MRN: | | | | | | [id number] | | | [id number] | | | riteri | | | [...] | | | St. | | | [place] | | | y | | | [...] | | | s | | | [facility] | | | ED | | | Dispar | | | ity | | | [facility] | | | e - | | | [facility] | | | has | | | [...] | | | s. | | | [facility] | | | | | | Health [...] | | | By: | | | [facility] | | | | | | Health [...] MED | | | | | | 2019-0 | | | 7-22 | | | HYDROC | | | ODONE- | | | ACETAM | | | [place] | | | 7.5-32 | | | 5 120 | | | MARIZA | | | SOTO 2 | | | 30 | | | 2019-0 | | | 6-22 | | | HYDROC | | | ODONE- | | | ACETAM | | | IN | | | 7.5-32 | | | 5 120 | | | MARIJA | | | | | | VICTORINO | | | 2 30 | | | 2019-0 | | | 5-23 | | | HYDROC | | | ODONE- | | | ACETAM | | | IN | | | 7.5-32 | | | 5 120 | | | MARIJA | | | | | | VICTORINO | | | 2 30 | | | 2019-0 | | | 5-17 | | | HYDROC | | | ODONE- | | | ACETAM | | | IN | | | 7.5-32 | | | 5 15 | | | KENNET | | | H | | | EJIOGU | | | 2 | | | 22.5 | | | Rx | | | Summar | | | yMetri | | | c | | | Count | | | CS | | | II-V | | | Rx 4 | | | CS-II | | | Rx 4 | | | Quanti | | | ty | | | Dispen | | | sed | | | 375 | | | Unique | | | | | | Prescr | | | ibers | | | 3 | | | Unique | | | | | | Pharma | | | cies 1 | | | | | | [facility] | | | 0 | | | Opioid | | | s 4 | | | Long | | | [...] | | Hospit | | | al 2 0 | | | | | | Provid | | | ence | | | [facility] | | | [facility] | | | Med[facility] | | | l | | | Center | | | 17 0 | | | [place] | | | | | | Genera | | | l | | | Hospit | | | al 1 0 | | | [facility] | | | [place] | | | y | | | [...] | | | int | | | May 6, | | | 2020 | | | Provid | | | ence | | | [facility] | | | [facility] | | | [place] | | | [place] | | | Emerge | | | ncy | | | Hand | | | Swelli | | | ng | | | Apr | | | 27, | | | 2020 | | | Provid | | | ence | | | [facility] | | | [facility] | | | [place] | | | [place] | | | Emerge | | | ncy | | | Skin | | | Ulcer | | | | | | Shortn | | | ess of | | | | | | Breath | | | | | | Acute | | | systol | | | ic | | | (conge | | | stive) | | | heart | | | | | | failur | | | e | | | Pressu | | | re-ind | | | uced | | | deep | | | tissue | | | | | | damage | | | of | | | sacral | | | | | | region | | | | | | Acute | | | respir | | | atory | | | failur | | | e with | | | | | | hypoxi | | | a | | | Other | | | specif | | | ied | | | abnorm | | | al | | | findin | | | gs of | | | blood | | | chemis | | | try | | | | | | Cyclic | | | al | | | vomiti | | | ng | | | syndro | | | me | | | unrela | | | yoel to | | | | | | migrai | | | ne | | | Mar | | | 22, | | | 2020 | | | [facility] [place] | | | y H. | | [...] | | | St. | | | [place] | | | y H. | | [...] | | e of | | | [place] | | | | | | pal[place] [...] | | | ter | | | Joe | | | 22, | | | [...] | | | absces | | | | | | Recent [...] | | | es | | | Acute | | | respir | | | atory | | | failur | | | e with | | | | | | hypoxi | | | a | | | Acute | | | systol | | | ic | | | (conge | | | stive) | | | heart | | | | | | failur | | | e | | | Other | | | specif | | | ied | | | abnorm | | | al | | | findin | | | gs of | | | blood | | | chemis | | | try | | | | | | Cyclic | | | al | | | vomiti | | | ng | | | syndro | | | me | | | unrela | | | yoel to | | | | | | migrai | | | ne | | | Pressu | | | re-ind | | | uced | | | deep | | | tissue | | | | | | damage | | | of | | | sacral | | | | | | region | | | | | | Noninf | | | ective | | | | | | gastro | | | enteri | | | tis | | | and | | | coliti | | | s, | | | unspec | | | ified | | | | | | [place] | | | lic | | | enceph | | | alopat | | | hy | | | Anxiet | | | y | | | disord | | | er, | | | unspec | | | ified | | | | | | Encoun | | | ter | | | for | | | pallia | | | tive | | | care | | | | | | Other | | | specif | | | ied | | | counse | | | ling | | | Feb | | | [...] | | e of | | | [place] | | | | | | pal[place] [...] | | e of | | | [place] | | | | | | pal[place] [...] | | | 2019 | | | [place] | | | | | | Genera [...] | | | 2019 | | | [place] | | | | | | Genera [...] | | | 2019 | | | [place] | | | | | | Genera [...] | | | se | | | Care | | | [...] | | | M.D. | | | [employer] | | | al | | | Medici | | | ne | | | [phone] | | | [phone] | | [phone] | | | [...] | | | otify/ | | | [phone] | | | [phone] | | | [phone] | | | [phone] | | | [phone] | | | [phone] | | | | | | PLEASE [...] [email or web address] | | | m | +---+--------+ + +--------+ +---+ + | MAGNESIUM | Routin | 02/08/2020 | | Results for this | | | e | 6:09 AM | | procedure are in the | | | | PDT | | results section. | + +--------+ +---+ + | CBC WITH | Routin | 02/08/2020 | | Results for this | | DIFFERENTIAL | e | 6:09 AM | | procedure are in the | | | | PDT | | results section. | + +--------+ +---+ + | BASIC METABOLIC | Routin | 02/08/2020 | | Results for this | | PANEL | e | 6:09 AM | | procedure are in the | | | | PDT | | results section. | + +--------+ +---+ + | TRANSFUSE 1 UNIT RED | Routin | 02/07/2020 | | | | BLOOD CELLS | e | 8:41 PM | | | | | | PDT | | | + +--------+ +---+ + | VAS UPPER EXTREMITY | Routin | 02/07/2020 | | Results for this | | VENOUS LEFT | e | 6:08 PM | | procedure are in the | | | | PDT | | results section. | + +--------+ +---+ + | TYPE AND SCREEN | Routin | 02/07/2020 | | Results for this | | | e | 3:10 PM | | procedure are in the | | | | PDT | | results section. | + +--------+ +---+ + | CBC WITH | Routin | 02/07/2020 | | Results for this | | DIFFERENTIAL | e | 12:45 PM | | procedure are in the | | | | PDT | | results section. | + +--------+ +---+ + | MAGNESIUM | Routin | 02/07/2020 | | Results for this | | | e | 5:45 AM | | procedure are in the | | | | PDT | | results section. | + +--------+ +---+ + | CBC WITH | Routin | 02/07/2020 | | Results for this | | DIFFERENTIAL | e | 5:45 AM | | procedure are in the | | | | PDT | | results section. | + +--------+ +---+ + | BASIC METABOLIC | Routin | 02/07/2020 | | Results for this | | PANEL | e | 5:45 AM | | procedure are in the | | | | PDT | | results section. | + +--------+ +---+ + | SODIUM | Routin | 02/06/2020 | | Results for this | | | e | 11:56 AM | | procedure are in the | | | | PDT | | results section. | + +--------+ +---+ + | VANCOMYCIN, TROUGH | Timed | 02/06/2020 | | Results for this | | | | 11:56 AM | | procedure are in the | | | | PDT | | results section. | + +--------+ +---+ + | MAGNESIUM | Routin | 02/06/2020 | | Results for this | | | e | 5:10 AM | | procedure are in the | | | | PDT | | results section. | + +--------+ +---+ + | CBC WITH | Routin | 02/06/2020 | | Results for this | | DIFFERENTIAL | e | 5:10 AM | | procedure are in the | | | | PDT | | results section. | + +--------+ +---+ + | BASIC METABOLIC | Routin | 02/06/2020 | | Results for this | | PANEL | e | 5:10 AM | | procedure are in the | | | | PDT | | results section. | + +--------+ +---+ + | XR CHEST AP PORTABLE | Routin | 02/05/2020 | | Results for this | | | e | 12:03 PM | | procedure are in the | | | | PDT | | results section. | + +--------+ +---+ + | FOLATE | Routin | 02/05/2020 | | Results for this | | | e | 10:24 AM | | procedure are in the | | | | PDT | | results section. | + +--------+ +---+ + | SODIUM | Routin | 02/05/2020 | | Results for this | | | e | 10:24 AM | | procedure are in the | | | | PDT | | results section. | + +--------+ +---+ + | HEMOGLOBIN AND | Routin | 02/05/2020 | | Results for this | | HEMATOCRIT | e | 10:24 AM | | procedure are in the | | | | PDT | | results section. | + +--------+ +---+ + | VITAMIN B-12 | Add-On | 02/05/2020 | | Results for this | | | | 6:28 AM | | procedure are in the | | | | PDT | | results section. | + +--------+ +---+ + | FERRITIN | Add-On | 02/05/2020 | | Results for this | | | | 6:28 AM | | procedure are in the | | | | PDT | | results section. | + +--------+ +---+ + | IRON AND TRANSFERRIN | Add-On | 02/05/2020 | | Results for this | | | | 6:28 AM | | procedure are in the | | | | PDT | | results section. | + +--------+ +---+ + | BASIC METABOLIC | Routin | 02/05/2020 | | Results for this | | PANEL | e | 6:28 AM | | procedure are in the | | | | PDT | | results section. | + +--------+ +---+ + | MAGNESIUM | Routin | 02/05/2020 | | Results for this | | | e | 6:28 AM | | procedure are in the | | | | PDT | | results section. | + +--------+ +---+ + | CBC WITH | Routin | 02/05/2020 | | Results for this | | DIFFERENTIAL | e | 6:28 AM | | procedure are in the | | | | PDT | | results section. | + +--------+ +---+ + | SODIUM | Routin | 02/04/2020 | | Results for this | | | e | 12:03 PM | | procedure are in the | | | | PDT | | results section. | + +--------+ +---+ + | MAGNESIUM | Routin | 02/04/2020 | | Results for this | | | e | 6:29 AM | | procedure are in the | | | | PDT | | results section. | + +--------+ +---+ + | BASIC METABOLIC | Routin | 02/04/2020 | | Results for this | | PANEL | e | 6:29 AM | | procedure are in the | | | | PDT | | results section. | + +--------+ +---+ + | CBC WITH | Routin | 02/04/2020 | | Results for this | | DIFFERENTIAL | e | 6:29 AM | | procedure are in the | | | | PDT | | results section. | + +--------+ +---+ + | CULTURE, ANAEROBIC | Routin | 02/03/2020 | | Results for this | | | e | 11:13 AM | | procedure are in the | | | | PDT | | results section. | + +--------+ +---+ + | CULTURE, WOUND, | Routin | 02/03/2020 | | Results for this | | SMEAR | e | 11:13 AM | | procedure are in the | | | | PDT | | results section. | + +--------+ +---+ + | CULTURE, WOUND, | Routin | 02/03/2020 | | Results for this | | SMEAR | e | 11:13 AM | | procedure are in the | | | | PDT | | results section. | + +--------+ +---+ + | FL ESOPHAGRAM | Routin | 02/03/2020 | | Results for this | | COMPLETE | e | 9:24 AM | | procedure are in the | | | | PDT | | results section. | + +--------+ +---+ + | MAGNESIUM | Routin | 02/03/2020 | | Results for this | | | e | 6:18 AM | | procedure are in the | | | | PDT | | results section. | + +--------+ +---+ + | BASIC METABOLIC | Routin | 02/03/2020 | | Results for this | | PANEL | e | 6:18 AM | | procedure are in the | | | | PDT | | results section. | + +--------+ +---+ + | CBC WITH | Routin | 02/03/2020 | | Results for this | | DIFFERENTIAL | e | 6:18 AM | | procedure are in the | | | | PDT | | results section. | + +--------+ +---+ + | SODIUM | Routin | 02/02/2020 | | Results for this | | | e | 12:22 PM | | procedure are in the | | | | PDT | | results section. | + +--------+ +---+ + | FL VIDEO SWALLOW W | Routin | 02/02/2020 | | Results for this | | SPEECH | e | 12:07 PM | | procedure are in the | | | | PDT | | results section. | + +--------+ +---+ + | B TYPE NATRIURETIC | Add-On | 02/02/2020 | | Results for this | | PEPTIDE | | 6:40 AM | | procedure are in the | | | | PDT | | results section. | + +--------+ +---+ + | MAGNESIUM | Routin | 02/02/2020 | | Results for this | | | e | 6:40 AM | | procedure are in the | | | | PDT | | results section. | + +--------+ +---+ + | BASIC METABOLIC | Routin | 02/02/2020 | | Results for this | | PANEL | e | 6:40 AM | | procedure are in the | | | | PDT | | results section. | + +--------+ +---+ + | CBC WITH | Routin | 02/02/2020 | | Results for this | | DIFFERENTIAL | e | 6:40 AM | | procedure are in the | | | | PDT | | results section. | + +--------+ +---+ + | URINALYSIS, REFLEX | Routin | 02/02/2020 | | Results for this | | MICROSCOPIC AND/OR | e | 3:44 AM | | procedure are in the | | CULTURE | | PDT | | results section. | + +--------+ +---+ + | CULTURE, URINE | Routin | 02/02/2020 | | Results for this | | | e | 3:44 AM | | procedure are in the | | | | PDT | | results section. | + +--------+ +---+ + | CLOSTRIDIOIDES | Routin | 02/01/2020 | | Results for this | | DIFFICILE NAAT | e | 9:01 AM | | procedure are in the | | REFLEX | | PDT | | results section. | + +--------+ +---+ + | CLOSTRIDIOIDES | Routin | 02/01/2020 | | Results for this | | DIFFICILE NAAT | e | 9:01 AM | | procedure are in the | | REFLEX TO TOX AG | | PDT | | results section. | + +--------+ +---+ + | STOOL PATHOGENS, | Routin | 02/01/2020 | | Results for this | | NAAT, 6 TO 11 | e | 9:01 AM | | procedure are in the | | TARGETS | | PDT | | results section. | + +--------+ +---+ + | MAGNESIUM | Routin | 02/01/2020 | | Results for this | | | e | 6:34 AM | | procedure are in the | | | | PDT | | results section. | + +--------+ +---+ + | BASIC METABOLIC | Routin | 02/01/2020 | | Results for this | | PANEL | e | 6:34 AM | | procedure are in the | | | | PDT | | results section. | + +--------+ +---+ + | CBC NO DIFFERENTIAL | Routin | 02/01/2020 | | Results for this | | | e | 5:20 AM | | procedure are in the | | | | PDT | | results section. | + +--------+ +---+ + | TROPONIN I | Routin | 01/31/2020 | | Results for this | | | e | 9:07 PM | | procedure are in the | | | | PDT | | results section. | + +--------+ +---+ + | TROPONIN I | Routin | 01/31/2020 | | Results for this | | | e | 5:21 PM | | procedure are in the | | | | PDT | | results section. | + +--------+ +---+ + | CULTURE, BLOOD | STAT | 01/31/2020 | | Results for this | | | | 5:21 PM | | procedure are in the | | | | PDT | | results section. | + +--------+ +---+ + | INFLUENZA A AND B | Routin | 01/31/2020 | | Results for this | | RNA, NAAT | e | 3:14 PM | | procedure are in the | | | | PDT | | results section. | + +--------+ +---+ + | RESPIRATORY VIRUS | Routin | 01/31/2020 | | Results for this | | ANTIGENS PROFILE | e | 3:13 PM | | procedure are in the | | | | PDT | | results section. | + +--------+ +---+ + | URINALYSIS, | STAT | 01/31/2020 | | Results for this | | MICROSCOPIC ONLY | | 12:20 PM | | procedure are in the | | | | PDT | | results section. | + +--------+ +---+ + | CT HEAD WO CONTRAST | STAT | 01/31/2020 | | Results for this | | | | 10:24 AM | | procedure are in the | | | | PDT | | results section. | + +--------+ +---+ + | CT CHEST ABDOMEN | STAT | 01/31/2020 | | Results for this | | PELVIS W CONTRAST | | 10:24 AM | | procedure are in the | | | | PDT | | results section. | + +--------+ +---+ + | COVID-19 STAT | STAT | 01/31/2020 | | Results for this | | INSTRUCTION TO | | 9:47 AM | | procedure are in the | | [facility] ONLY | | PDT | | results section. | + +--------+ +---+ + | CORONAVIRUS | Routin | 01/31/2020 | | Results for this | | (COVID-19) NAAT | e | 9:47 AM | | procedure are in the | | | | PDT | | results section. | + +--------+ +---+ + | ECG 12 LEAD | STAT | 01/31/2020 | | Results for this | | | | 9:28 AM | | procedure are in the | | | | PDT | | results section. | + +--------+ +---+ + | XR CHEST AP PORTABLE | STAT | 01/31/2020 | | Results for this | | | | 9:16 AM | | procedure are in the | | | | PDT | | results section. | + +--------+ +---+ + | MAGNESIUM | Add-On | 01/31/2020 | | Results for this | | | | 9:07 AM | | procedure are in the | | | | PDT | | results section. | + +--------+ +---+ + | LIPASE | STAT | 01/31/2020 | | Results for this | | | | 9:07 AM | | procedure are in the | | | | PDT | | results section. | + +--------+ +---+ + | B TYPE NATRIURETIC | STAT | 01/31/2020 | | Results for this | | PEPTIDE | | 9:07 AM | | procedure are in the | | | | PDT | | results section. | + +--------+ +---+ + | TROPONIN I | STAT | 01/31/2020 | | Results for this | | | | 9:07 AM | | procedure are in the | | | | PDT | | results section. | + +--------+ +---+ + | C-REACTIVE PROTEIN | Routin | 01/31/2020 | | Results for this | | | e | 9:07 AM | | procedure are in the | | | | PDT | | results section. | + +--------+ +---+ + | PROTIME INR | STAT | 01/31/2020 | | Results for this | | | | 9:07 AM | | procedure are in the | | | | PDT | | results section. | + +--------+ +---+ + | PROCALCITONIN, SERUM | STAT | 01/31/2020 | | Results for this | | | | 9:07 AM | | procedure are in the | | | | PDT | | results section. | + +--------+ +---+ + | LACTIC ACID | STAT | 01/31/2020 | | Results for this | | | | 9:07 AM | | procedure are in the | | | | PDT | | results section. | + +--------+ +---+ + | COMPREHENSIVE | STAT | 01/31/2020 | | Results for this | | METABOLIC PANEL | | 9:07 AM | | procedure are in the | | | | PDT | | results section. | + +--------+ +---+ + | CBC WITH | STAT | 01/31/2020 | | Results for this | | DIFFERENTIAL | | 9:07 AM | | procedure are in the | | | | PDT | | results section. | + +--------+ +---+ + | CULTURE, BLOOD | STAT | 01/31/2020 | | Results for this | | | | 9:07 AM | | procedure are in the | | | | PDT | | results section. | + +--------+ +---+ + | ED INFORMATION | Routin | 01/31/2020 | | | | EXCHANGE | e | 8:15 AM | | | | | | PDT | | | + +--------+ +---+ + +---+--------+ | | | | | [...] | | | FICATI | | | ON?/ | | | | | | 0 | | | 08:14? | | | CARLINE | | | , | | | ÁNGELA | | | J?MRN: | | | | | | [id number] | | | [id number] | | | riteri | | | [...] | | | endati | | | on:[place] | | | son | | | [...] | | | St. | | | [place] | | | y | | | [...] | | | s | | | [facility] | | | ED | | | Dispar | | | ity | | | Measur | | | e - | | | [facility] | | | has | | | [...] | | | s. | | | [facility] | | | | | | Health [...] | | | By: | | | [facility] | | | | | | Health [...] | | 16 0 | | | [place] | | | | | | [facility] | | | l | | | Hospit | | | al 1 0 | | | [facility] | | | [place] | | | y | | | [...] | | | St. | | | [place] | | | y H. | | [...] | | | St. | | | [place] | | | y H. | | [...] | | e of | | | [place] | | | | | | [place] [...] | | | ter | | | Joe | | | 22, | | | [...] | | e of | | | [place] | | | | | | pal[place] [...] | | e of | | | [place] | | | | | | pal[place] [...] | | | 2019 | | | [place] | | | | | | Genera [...] | | | 2019 | | | [place] | | | | | | Genera [...] | | | 2019 | | | [place] | | | | | | Genera [...] | | | M.D. | | | [employer] | | | al | | | [...] | | | ed.? | | | 2019 | | | [employer] | | | tive | | | [employer] | | | l | | | [employer] | | | logies | | | , [employer] | | | - | | | [email or web address] | | | llecti | | | vemedi | | | [email or web address] | | | m | +---+--------+ from Last 3 Months Results CBC with Differential (03/07/2020 12:27 PM PDT)Only the most recent of 15 results within e time period is included. + + + + + + | [...] + + + + | RBC | 3.16 (L) | 3.70 - 5.20 | [facility] | | | | | M/uL | [facility] | | | [facility] - | | | | | | LAB[facility]ATORY | | + + + + + + | Hemoglobin | 9.6 (L) | 11.5 - 16.0 | [facility] | | | | | g/dL | [facility] | | | | | | [facility] | | | | | | [facility] - | | | | | | LABORATORY | | + + + + + + | Hematocrit | 31.2 (L) | 34.0 - 47.0 % | [facility] | | | | | | [facility] | [facility] - | | | | | | [facility]ATORY | | + + + + + + | MCV | 98.7 | 83.0 - 101.0 fL | [facility] | | | | | | [facility] | | | | | | [facility] - | | | | | | LABORATORY | | + + + + + + | MCH | 30.4 | 28.0 - 35.0 pg | [facility] [...] + + + + | RDW-CV | 16.7 (H) | <15.0 % | [facility] | | | | | | [facility] | [facility] | | | | | | [facility] - | | | | | | LABORATORY | | + + + + + + | RDW-SD | 60.7 (H) | 35.1 - 46.3 fL | [facility] | | | | | [facility] | [facility] | [facility] | | | | [facility] - | | | | | | LABORATORY | | + + + + + + | Platelet | 202 | 140 - 440 K/uL | [facility] | | | Count | | | [facility] | | [facility] | | | [facility] | | | | | | [facility] - | | | | | | LABORATORY | | + + + + + + | MPV | 10.0 | 6.5 - 12.4 fL | [facility] | | | | | | [facility] | [facility] | [facility] | | | | | | [facility] - | | | | | | LABORATORY | | + + + + + + | % | 87.2 (H) | 45.0 - 82.0 % | [facility] | | | Neutrophils | | | [facility] | | | | | | [facility] | | | | | | [facility] - | | | | | | LABORATORY | | + + + + + + | % | 6.0 (L) | 20.0 - 45.0 % | [facility] | | | Lymphocytes | | | [facility] | | | | | | [facility] | | | | | | [facility] - | | | | | | LABORATORY | | + + + + + + | % Monocytes | 5.8 | 4.0 - 12.0 % | [facility] | | | | | | [facility] | | | | | | [facility] | | | | | | [facility] - | | | | | | LABORATORY | | + + + + + + | % | 0.3 | 0.0 - 5.0 % | [facility] | | | Eosinophils | | | [facility] | | | | | | [facility] | | | | | | [facility] - | | | | | | LABORATORY | | + + + + + + | % Basophils | 0.2 | 0.0 - 1.0 % | [facility] [...] + + + + | Absolute | 11.28 (H) | 1.80 - 8.50 | [facility] | | | Neutrophils | | K/uL | [facility] | | | | | | [facility] | | | | | | [facility] - | | | | | | LABORATORY | | + + + + + + | Absolute | 0.77 | 0.60 - 3.20 | [facility] | | | Lymphocytes | | K/uL | [facility] | | | | | [facility] | | | | | | [facility] - | | | | | | LABORATORY | | + + + + + + | Absolute | 0.75 | 0.00 - 1.00 | [facility] | | | Monocytes | | K/uL | [facility] | | | | | | [facility] | | | | | | CENTER - | | | | | | LABORATORY | | + + + + + + | Absolute | 0.04 | 0.00 - 0.40 | [facility] | | | Eosinophils | | K/uL | [facility] | | [...] [address] | PRASHANT Patel | [phone] | | [facility] | | [address] | | | - LABORATORY | | | | + + + + + Drugs of Abuse, Opiates, Confirm, Urine (03/07/2020 12:16 PM PDT) + + + + + + | Component | Value | Ref Range | Performed | Pathologist | | | | | At | Signature | + + + + + + | Heroin | Not DetectedComment: | NOTDET ng/mL | REFERENCE | | | (6-ELIE) | LOQ: 10 ng/mL | | LAB [facility] | | | Confirm, | | | - BKR | | | Urine | | | | | + + + + + + | Oxycodone | Not DetectedComment: | NOTDET ng/mL | REFERENCE | | | Confirm, | LOQ: 50 ng/mL | | LAB [facility] | | | Urine | | | - BKR | | + + + + + + | Oxymorphone | Not DetectedComment: | NOTDET ng/mL | REFERENCE | | | Confirm, | LOQ: 50 ng/mL | | LAB [facility] | | | Urine | | | - BKR | | + + + + + + | Codeine | Not DetectedComment: | NOTDET ng/mL | REFERENCE | | | Confirm, | LOQ: 50 ng/mL | | LAB [facility] | | | Urine | | | - BKR | | + + + + + + | Morphine | Not DetectedComment: | NOTDET ng/mL | REFERENCE | | | Confirm, | LOQ: 50 ng/mL | | LAB [facility] | | | Urine | | | - BKR | | + + + + + + | Hydromorpho | 486 (A)Comment: LOQ: 50 | NOTDET ng/mL | REFERENCE | | | ne, | ng/mL | | LAB [facility] | | | Confirm, | | | - BKR | | | Urine | | | | | + + + + + + | Hydrocodone | 1889 (A)Comment: LOQ: 50 | NOTDET ng/mL | REFERENCE | | | Confirm, | ng/mL | | LAB [facility] | | | Urine | | | - BKR | | + + + + + + | Noroxycodon | Not DetectedComment: | NOTDET ng/mL | REFERENCE | | | e Confirm, | LOQ: 50 ng/mL | | LAB [facility] | | | Urine | | | - BKR | | + + + + + + | Norhydrocod | 1773 (A)Comment: LOQ: 50 | NOTDET ng/mL | REFERENCE | | | one | ng/mL | | LAB [facility] | | | Confirm, | | | - BKR | | | Urine | | | | | + + + + + + + + | Specimen | + + | Urine | + + + + + | Narrative | Performed At | + + + | Performed at: 01 - [facility] [address] | REFERENCE LAB | | [facility] [address], [place] [id number] Electric Spot Welder: Nenita CHAVEZ | | Boogie PhD, Phone: [phone] | | + + + + + + + + | Performing | Address | City/State/Zipcode | Phone Number | | Organization | | | | + + + + + | REFERENCE LAB | [address] | [place], [place] | [phone] | | [facility] | [place] | [address] | | + + + + + Drugs of Abuse, Screen, Urine (03/07/2020 12:16 PM PDT) + + + + + + | Component | Value | Ref Range | Performed | Pathologist | | | | | At | Signature | + + + + + + | Amphetamine | Negative | Negative | [facility] | | | Screen, | | | [facility] | | | Urine | | | MEDICAL | | | | | | CENTER - | | | | | | LABORATORY | | + + + + + + | Barbiturate | Negative | Negative | [facility] | | | s Screen, | | | [facility] | | | Urine | | | MEDICAL | | | | | | CENTER - | | | | | | LABORATORY | | + + + + + + | Benzodiazep | Negative | Negative | [facility] | | | ash | | | [facility] | | | Screen, | | | MEDICAL | | | Urine | | | CENTER - | | | | | | LABORATORY | | + + + + + + | Cannabinoid | Negative | Negative | [facility] | | | s Screen, | | | [facility] | | | Urine | | | MEDICAL | | | | | | CENTER - | | | | | | LABORATORY | | + + + + + + | Cocaine | Negative | Negative | [facility] | | | Screen, | | | [facility] | | | Urine | | | MEDICAL | | | | | | CENTER - | | | | | | LABORATORY | | + + + + + + | Methadone | Negative | Negative | [facility] | | | Screen, | | | [facility] | | | Urine | | | MEDICAL | | | | | | CENTER - | | | | | | LABORATORY | | + + + + + + | Opiates | Positive (A) | Negative | [facility] | | | Screen, | | | [facility] | | | Urine | | | [...] [address] | [place] | [phone] | | [facility] | | [id number] | | | - LABORATORY | | | | + + + + + CT Knee Left wo Contrast (03/03/2020 1:48 PM PDT) + + | Specimen | + + | | + + + + + | Impressions | Performed At | + + + | No convincing acute fracture or evidence of traumatic malalignment. | [facility] | | Small joint effusion. Severe medial, moderate to severe | | | patellofemoral, and moderate lateral compartmental osteoarthritis | | | with likely complex bilateral meniscal tears and meniscal | | | calcification/degeneration. Diffuse osteopenia. Dictated | | | and Signed by: Bartolome Neff MD Electronically signed: 03/03/2020 | | | 2:20 PM | | + + + + + + | Narrative | Performed At | + + + | CT KNEE LEFT WO CONTRAST 03/03/2020 1:41 PM HISTORY: fall, knee | [facility] | | pain, follow up for abnormal x-ray. COMPARISON: Same day | | | radiograph and 02/27/2020 PROTOCOL: Thin section axial CT images of | | | the left knee were obtained with coronal and sagittal reformations. | | | FINDINGS: Complete calcification of the infrapatellar ligament. | | | Large patellofemoral osteophytes. Small joint effusion. Moderate to | | | severe medial, moderate lateral, and moderate to severe | | | patellofemoral compartmental degenerative changes with large | | | osteophytes. Diffuse osteopenia. No acute fracture or evidence of | | | traumatic malalignment. No evidence for an acute fibular fracture | | | prominent vascular calcifications. Mild diffuse soft tissue swelling. | | | | | + + + + + | Procedure Note | + + | Kobe, Rad Results In - 03/03/2020 2:[address] KNEE LEFT WO CONTRAST 03/03/2020 1:41 | | PMHISTORY: fall, knee pain, follow up for abnormal x-ray.COMPARISON: Same day | | radiograph and 02/27/2020PROTOCOL: Thin section axial CT images of the left knee were | | obtained withcoronal and sagittal reformations.FINDINGS:Complete calcification of the | | infrapatellar ligament. Large patellofemoralosteophytes. Small joint effusion. Moderate | | to severe medial, moderate lateral,and moderate to severe patellofemoral compartmental | | degenerative changes withlarge osteophytes. Diffuse osteopenia. No acute fracture or | | evidence oftraumatic malalignment. No evidence for an acute fibular fracture | | prominentvascular calcifications. 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 No evidence for an acute fibular fracture prominent | |vascular calcifications. Mild diffuse soft tissue swelling. | | | |IMPRESSION: | |No convincing acute fracture or evidence of traumatic malalignment. | | | |Small joint effusion. | | | |Severe medial, moderate to severe patellofemoral, and moderate lateral | |compartmental osteoarthritis with likely complex bilateral meniscal tears and | |meniscal calcification/degeneration. | | | |Diffuse osteopenia. | | | | | | | |Dictated and Signed by: Bartolome Neff MD | | Electronically signed: 03/03/2020 2:20 PM | + + + +---------+ + + | Performing | Address | City/State/Zipcode | Phone Number | | Organization | | | | + +---------+ + + | [facility] | | | | + +---------+ + + CT Elbow Left wo Contrast (03/03/2020 1:48 PM PDT) + + | Specimen | + + | | + + + + + | Impressions | Performed At | + + + | Subtle irregularity involving the radial head seen on the sagittal | [facility] | | view may be artifactual with an occult fracture unable to be | | | excluded. Consider repeat x-ray imaging and 2 weeks if there is | | | continued pain. Otherwise, no acute ulnar, radial, or humeral | | | fracture or evidence of traumatic malalignment. Only a | | | questionable small amount of joint fluid without significant joint | | | effusion. Dictated and Signed by: Bartolome Neff MD | | | Electronically signed: 03/03/2020 2:11 PM | | + + + + + + | Narrative | Performed At | + + + | CT ELBOW LEFT WO CONTRAST 03/03/2020 1:41 PM HISTORY: elbow pain, | [facility] | | follow up from x-ray after fall. COMPARISON: Same day elbow | | | radiograph. PROTOCOL: Thin section axial CT images of the left | | | elbow were obtained with coronal and sagittal reformations. | | | FINDINGS: Subtle irregularity involving the radial head seen on the | | | sagittal view is likely artifactual with an occult fracture unable to | | | be entirely excluded.. Otherwise, no acute ulnar, radial, or humeral | | | fracture or evidence of traumatic malalignment. Only a small amount | | | of joint fluid without significant joint effusion. Mild degenerative | | | changes of the olecranon and trochlea. Chronic calcific tendinitis | | | along the lateral bundle insertion to the lateral condyle. Trochlea | | | and coronoid process appears intact. | | + + + + + | Procedure Note | + + | Kobe, Rad Results In - 03/03/2020 2:[address] ELBOW LEFT WO CONTRAST 03/03/2020 | | 1:41 PMHISTORY: elbow pain, follow up from x-ray after fall.COMPARISON: Same day elbow | | radiograph.PROTOCOL: Thin section axial CT images of the left elbow were obtained | | withcoronal and sagittal reformations.FINDINGS:Subtle irregularity involving the radial | | head seen on the sagittal view islikely artifactual with an occult fracture unable to be | | entirely excluded..Otherwise, no acute ulnar, radial, or humeral fracture or evidence | | of traumaticmalalignment. Only a small amount of joint fluid without significant | | jointeffusion. Mild degenerative changes of the olecranon and trochlea. Chroniccalcific | | tendinitis along the lateral bundle insertion to the lateral condyle.Trochlea and | | coronoid process appears intact.IMPRESSION: Subtle irregularity involving the radial | | head seen on the sagittal view may beartifactual with an occult fracture unable to be | | excluded. Consider repeat x-ray imaging and 2 weeks if there is continued | | pain.Otherwise, no acute ulnar, radial, or humeral fracture or evidence of | | traumaticmalalignment. Only a questionable small amount of joint fluid without | | significant jointeffusion. Dictated and Signed by: Bartolome Neff MD Electronically | | signed: 03/03/2020 2:11 PM | |Trochlea and coronoid process appears intact. | | | |IMPRESSION: | |Subtle irregularity involving the radial head seen on the sagittal view may be | |artifactual with an occult fracture unable to be excluded. | | | |Consider repeat x-ray imaging and 2 weeks if there is continued pain. | | | |Otherwise, no acute ulnar, radial, or humeral fracture or evidence of traumatic | |malalignment. | | | |Only a questionable small amount of joint fluid without significant joint | |effusion. | | | |Dictated and Signed by: Bartolome Neff MD | | Electronically signed: 03/03/2020 2:11 PM | + + + +---------+ + + | Performing | Address | City/State/Zipcode | Phone Number | | Organization | | | | + +---------+ + + | [facility] | | | | + +---------+ + + XR Chest AP Portable (03/03/2020 9:54 AM PDT)Only the most recent of 5 results within the time period is included. + + | Specimen | + + | | + + + + + | Impressions | Performed At | + + + | Mild atelectasis in right lung base. Dictated and Signed by: | [facility] | | Patrick Rodriguez MD Electronically signed: 03/03/2020 10:33 AM | | + + + + + + | Narrative | Performed At | + + + | XR CHEST AP PORTABLE 03/03/2020 9:39 AM HISTORY: FALL ARM | [facility] | | LACERATION LEG LACERATION. COMPARISON: Multiple priors. | | | Findings: Heart size is at the upper limits of normal. 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 There is atherosclerosis of | | | the aorta. Central pulmonary vasculature is normal. Mild diffuse | | | scarring are present of the bilateral lungs. Mild atelectasis is in | | | the right lung base. There is moderate spondylosis. | | + + + + + | Procedure Note | + + | Kobe, Rad Results In - 03/03/2020 10:36 AM PDT XR CHEST AP PORTABLE 03/03/2020 9:39 AM | | | | HISTORY: FALL | | ARM LACERATION | | LEG LACERATION. | | | | COMPARISON: Multiple priors. | | | | Findings: | | Heart size is at the upper limits of normal. 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 There is atherosclerosis of the aorta. Central pulmonary | | vasculature is normal. Mild diffuse scarring are present of the bilateral lungs. | | Mild atelectasis is in the right lung base. There is moderate spondylosis. | | | | IMPRESSION: | | Mild atelectasis in right lung base. | | | | Dictated and Signed by: Patrick Rodriguez MD | | Electronically signed: 03/03/2020 10:33 AM | + + + +---------+ + + | Performing | Address | City/State/Zipcode | Phone Number | | Organization | | | | + +---------+ + + | [facility] | | | | + +---------+ + + B Type Natriuretic Peptide (03/03/2020 9:47 AM PDT)Only the most recent of 15 results with in the time period is included. + + + + + + | Component | Value | Ref Range | Performed | Pathologist | | | | | At | Signature | + + + + + + | BNP | 535 (H)Comment: New | <100 pg/mL | [facility] | | | | method in use as of | | [facility] | | | | December 02, [...] | [address] | [place] | [phone] | | [facility] | | [address] | | | - LABORATORY | | | | + + + + + Comprehensive Metabolic Panel (03/03/2020 9:47 AM PDT)Only the most recent of 8 results wi thin the time period is included. + + + + + + | Component | Value | Ref Range | Performed | Pathologist | | | | | At | Signature | + + + + + + | Na | 134 (L) | 136 - 145 | [facility] | | | | | mmol/L | [facility] | | | | | | MED[facility] | | | | | | CENTER - | | | | | | LABORATORY | | + + + + + + | K | 4.8 | 3.4 - 5.1 | [facility] | | | | | mmol/L | [facility] | | | | | | MEDICAL | | | | | | CENTER - | | | | | | LABORATORY | | + + + + + + | Cl | 106 | 98 - 107 mmol/L | [facility] | | | | | | [facility] | | | | | | MEDICAL | | | | | | CENTER - | | | | | | LABORATORY | | + + + + + + | CO2 | 24 | 20 - 31 mmol/L | [facility] [...] + + + + | Glucose | 85 | 60 - 106 mg/dL | [facility] [...] + + + + | Creatinine | 0.80 | 0.55 - 1.02 | [facility] | | | | | mg/dL | [facility] | | | | | | MEDICAL | | | | | | CENTER - | | | | | | LABORATORY | | + + + + + + | eGFR if not | >60Comment: GLOMERULAR | >=60 | [facility] | | | | FILTRATION | mL/min/1.73m2 | [facility] | | | [facility] | RATE,ESTIMATED | | MEDICAL | | | | mL/min/1.71v5Sapx than | | CENTER - | | [...] + + + + | Calcium | 8.8 | 8.7 - 10.4 | [facility] | | | | | mg/dL | [facility] | | | | | | MEDICAL | | | | | | CENTER - | | | | | | LABORATORY | | + + + + + + | Albumin | 3.1 (L) | 3.2 - 4.8 g/dL | [facility] | | | | | | [facility] | | | | | | MEDICAL | | | | | | CENTER - | | | | | | LABORATORY | | + + + + + + | Bilirubin | 0.5 | 0.3 - 1.2 mg/dL | [facility] | | | Total | | | [facility] | | | | | | MEDICAL | | | | | | CENTER - | | | | | | LABORATORY | | + + + + + + | Total | 5.6 (L) | 5.7 - 8.2 g/dL | [facility] | | | Protein | | | [facility] | | | | | | MEDICAL | | | | | | CENTER - | | | | | | LABORATORY | | + + + + + + | AST | 27 | 0 - 34 U/L | [facility] | | | | | | [facility] | | | | | | MEDICAL | | | | | | CENTER - | | | | | | LABORATORY | | + + + + + + | ALT | 27 | 10 - 49 U/L | [facility] | | | | | | [facility] | | | | | | MEDICAL | | | | | | CENTER - | | | | | | LABORATORY | | + + + + + + | Alkaline | 106 | 46 - 116 U/L | [facility] | | | Phosphatase | | | [facility] | | | | | | MEDICAL | | | | | | CENTER - | | | | | | LABORATORY | | + + + + + + | Globulin | 2.5 | 2.1 - 3.8 g/dL | [facility] | | | | | | [facility] | | | | | | MEDICAL | | | | | | CENTER - | | | | | | LABORATORY | | + + + + + + | Albumin/Sarika | 1.2 | 0.8 - 1.9 | [facility] | | | bulin Ratio | | | [facility] | | | | | | MEDICAL | | | | | | CENTER - | | | | | | LABORATORY | | + + + + + + | BUN/Creatin | 26.3 | | [facility] | | | ine [...] + | [facility] | [address] | [place] | [phone] | | [facility] | | [address] | | | - LABORATORY | | | | + + + + + CT Head wo Contrast (03/03/2020 6:47 AM PDT)Only the most recent of 4 results within the period is included. + + | Specimen | + + | | + + + + + | Impressions | Performed At | + + + | 1. No acute intracranial abnormality identified. 2. Severe | [facility] | | intracranial arteriosclerosis. Remote left occipital lobe infarct. 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 Dictated and | | | Signed by: Bartolome Neff MD Electronically signed: 03/03/2020 9:24 | | | AM | | + + + + + + | Narrative | Performed At | + + + | EXAM: CT HEAD WO CONTRAST dated 03/03/2020 6:37 AM HISTORY: | [facility] | | Head trauma, minor (Age > 65y) FALL ARM LACERATION LEG LACERATION | | | Comparison: 02/27/2020 TECHNIQUE: Noncontrast CT is performed | | | from the top of calvarium through the skull base. Coronal and | | | sagittal reformats are performed. FINDINGS: BRAIN: No areas | | | of increased attenuation to suggest intracranial hemorrhage. There | | | is no mass, mass effect, or midline shift. There are no abnormal | | | extra-axial fluid or air collections. There is preservation of the | | | benitez-white differentiation at this time. There is mild cerebral | | | atrophy. There is appropriate associated prominence of the | | | ventricles. There is moderate patchy to confluent decreased density | | | in the periventricular and subcortical white matter. Severe | | | intracranial arteriosclerosis. Remote left occipital lobe infarct. | | | Likely remote left subinsular white matter infarcts. Likely remote | | | left ventricular white matter infarcts. SCALP/ CALVARIUM: | | | Calcified dural based protuberance in the right frontal lobe is | | | chronic and likely benign. No acute finding. SINUSES / ORBITS/ | | | MASTOIDS: The visible mastoid air cells and paranasal sinuses are | | | clear. The globes and retroconal contents are intact and without | | | evidence of acute abnormality. | | + + + + + | Procedure Note | + + | Kobe, Rad Results In 03/03/2020 9:27 AM PDT EXAM: CT HEAD WO CONTRAST dated | | 03/03/2020 6:37 AMHISTORY: Head trauma, minor (Age > 65y)FALLARM LACERATIONLEG | | LACERATIONComparison: 02/27/2020TECHNIQUE: Noncontrast CT is performed from the top of | | calvarium through theskull base. Coronal and sagittal reformats are performed.FINDINGS: | | BRAIN: No areas of increased attenuation to suggest intracranial hemorrhage. There is | | no mass, mass effect, or midline shift. There are no abnormalextra-axial fluid or air | | collections. There is preservation of the benitez-whitedifferentiation at this time. | | There is mild cerebral atrophy. There isappropriate associated prominence of the | | ventricles. There is moderate patchyto confluent decreased density in the | | periventricular and subcortical whitematter. Severe intracranial arteriosclerosis. | | Remote left occipital lobeinfarct. Likely remote left subinsular white matter infarcts. | | Likely remote leftventricular white matter infarcts.SCALP/ CALVARIUM: Calcified dural | | based protuberance in the right frontal lobeis chronic and likely benign. No acute | | finding.SINUSES / ORBITS/ MASTOIDS: The visible mastoid air cells and paranasal | | sinusesare clear. The globes and retroconal contents are intact and without evidenceof | | acute abnormality.IMPRESSION: 1. No acute intracranial abnormality identified.2. Severe | | intracranial arteriosclerosis. Remote left occipital lobe infarct.Remote left subinsular | | infarcts. Background of moderate chronic microvascularischemic white matter | | disease.Dictated and Signed by: Bartolome Neff MD Electronically signed: 03/03/2020 9:24 | | AM | |matter. Severe intracranial arteriosclerosis. Remote left occipital lobe | |infarct. Likely remote left subinsular white matter infarcts. Likely remote left | |ventricular white matter infarcts. | | | |SCALP/ CALVARIUM: Calcified dural based protuberance in the right frontal lobe | |is chronic and likely benign. No acute finding. | | | |SINUSES / ORBITS/ MASTOIDS: The visible mastoid air cells and paranasal sinuses | |are clear. The globes and retroconal contents are intact and without evidence | |of acute abnormality. | | | |IMPRESSION: | |1. No acute intracranial abnormality identified. | |2. Severe intracranial arteriosclerosis. Remote left occipital lobe infarct. | |Remote left subinsular infarcts. Background of moderate chronic microvascular | |ischemic white matter disease. | | | | | | | |Dictated and Signed by: Bartolome Neff MD | | Electronically signed: 03/03/2020 9:24 AM | + + + +---------+ + + | Performing | Address | City/State/Zipcode | Phone Number | | Organization | | | | + +---------+ + + | [facility] | | | | + +---------+ + + XR Knee Left 3 Vw (03/03/2020 6:47 AM PDT) + + | Specimen | + + | | + + + + + | Impressions | Performed At | + + + | Faint lucencies of the fibular head that are questionable for | [facility] | | nondisplaced fractures. Mild to moderate degenerative change. | | | Dictated and Signed by: Patrick Rodriguez MD Electronically signed: | | | 03/03/2020 10:28 AM | | + + + + + + | Narrative | Performed At | + + + | XR KNEE LEFT 3 VW 03/03/2020 6:37 AM HISTORY: FALL ARM | [facility] | | LACERATION LEG LACERATION. COMPARISON: 02/27/2020. FINDINGS: | | | Faint lucencies are visualized of the fibular head that are | | | questionable for nondisplaced fractures. Mild to moderate medial and | | | lateral compartment joint space loss are present. There are small | | | osteophytes of all compartments. Bone mineralization is decreased. | | | There is a tiny joint effusion. Extensive atherosclerosis is present. | | | Calcium is present in the patellar tendon. There is extensive | | | atherosclerosis. | | + + + + + | Procedure Note | + + | Kobe, Rad Results In - 03/03/2020 10:31 AM PDT XR KNEE LEFT 3 VW 03/03/2020 6:37 AM | | | | HISTORY: FALL | | ARM LACERATION | | LEG LACERATION. | | | | COMPARISON: 02/27/2020. | | | | FINDINGS: | | Faint lucencies are visualized of the fibular head that are questionable for | | nondisplaced fractures. Mild to moderate medial and lateral compartment joint | | space loss are present. There are small osteophytes of all compartments. Bone | | mineralization is decreased. There is a tiny joint effusion. Extensive | | atherosclerosis is present. Calcium is present in the patellar tendon. There is | | extensive atherosclerosis. | | | | IMPRESSION: | | Faint lucencies of the fibular head that are questionable for nondisplaced | | fractures. | | | | Mild to moderate degenerative change. | | | | Dictated and Signed by: Patrick Rodriguez MD | | Electronically signed: 03/03/2020 10:28 AM | + + + +---------+ + + | Performing | Address | City/State/Zipcode | Phone Number | | Organization | | | | + +---------+ + + | [facility] | | | | + +---------+ + + XR Elbow Left 3 + Vw (03/03/2020 6:47 AM PDT) + + | Specimen | + + | | + + + + + | Impressions | Performed At | + + + | No acute osseous findings. Elbow joint effusion with anterior | [facility] | | fat pad sign, concerning for occult fracture. Repeat x-rays are | | | recommended in one week. Dictated and Signed by: Patrick Rodriguez MD | | | Electronically signed: 03/03/2020 10:24 AM | | + + + + + + | Narrative | Performed At | + + + | XR ELBOW LEFT 3 + VW 03/03/2020 6:37 AM HISTORY: FALL ARM | [facility] | | LACERATION LEG LACERATION. COMPARISON: 06/28/2019. FINDINGS: | | | There is no definite evidence for acute fracture or dislocation. | | | Stable ossifications are adjacent to the lateral epicondyle | | | consistent with old injuries. Bone mineralization is normal. An elbow | | | joint effusion is present with anterior fat-pad sign, concerning for | | | occult fracture. Soft tissues are unremarkable. | | + + + + + | Procedure Note | + + | Kobe, Rad Results In - 03/03/2020 10:27 AM PDT XR ELBOW LEFT 3 + VW 03/03/2020 6:37 AM | | | | HISTORY: FALL | | ARM LACERATION | | LEG LACERATION. | | | | COMPARISON: 06/28/2019. | | | | FINDINGS: | | There is no definite evidence for acute fracture or dislocation. Stable | | ossifications are adjacent to the lateral epicondyle consistent with old | | injuries. Bone mineralization is normal. An elbow joint effusion is present with | | anterior fat-pad sign, concerning for occult fracture. Soft tissues are | | unremarkable. | | | | IMPRESSION: | | No acute osseous findings. | | | | Elbow joint effusion with anterior fat pad sign, concerning for occult fracture. | | | | Repeat x-rays are recommended in one week. | | | | Dictated and Signed by: Patrick Rodriguez MD | | Electronically signed: 03/03/2020 10:24 AM | + + + +---------+ + + | Performing | Address | City/State/Zipcode | Phone Number | | Organization | | | | + +---------+ + + | [facility] | | | | + +---------+ + + Extra Green Top Tube (03/02/2020 5:27 AM PDT)Only the most recent of 3 results within the time period is included. + +-------+ + + + | Component | Value | Ref Range | Performed | Pathologist | | | | | At | Signature | + +-------+ + + + | Extra Green | Done | | [facility] | | | Top Tube | | | [facility] | | [...] [address] | [place] | [phone] | | [facility] | | [address] | | | - LABORATORY | | | | + + + + + CBC no Differential (03/02/2020 5:27 AM PDT)Only the most recent of 25 results within the time period is included. + + + + + + | Component | Value | Ref Range | Performed | Pathologist | | | | | At | Signature | + + + + + + | WBC | 10.4 | 4.0 - 11.0 K/uL | [facility] | | | | | | [facility] | | | | | | MEDICAL | | | | | | CENTER - | | | | | | LABORATORY | | + + + + + + | RBC | 3.66 (L) | 3.70 - 5.20 | [facility] | | | | | M/uL | [facility] | | | | | | MEDICAL | | | | | | CENTER - | | | | | | LABORATORY | | + + + + + + | Hemoglobin | 11.1 (L) | 11.5 - 16.0 | [facility] | | | | | g/dL | [facility] | | | | | | MEDICAL | | | | | | CENTER - | | | | | | LABORATORY | | + + + + + + | Hematocrit | 35.4 | 34.0 - 47.0 % | [facility] [...] + + + + | MCH | 30.3 | 28.0 - 35.0 pg | [facility] | | | | | | [facility] | | | | | | MEDICAL | | | | | | CENTER - | | | | | | LABORATORY | | + + + + + + | MCHC | 31.4 (L) | 32.0 - 36.0 | [facility] | | | | | g/dL | [facility] | | | | | | MEDICAL | | | | | | CENTER - | | | | | | LABORATORY | | + + + + + + | RDW-CV | 18.6 (H) | <15.0 % | [facility] | | | | | | [facility] | | | | | | MEDICAL | | | | | | CENTER - | | | | | | LABORATORY | | + + + + + + | RDW-SD | 64.6 (H) | 35.1 - 46.3 fL | [...] + + + + | MPV | 10.3 | 6.5 - 12.4 fL | [facility] [...] | | nRBC | | K/uL | [facility] | [...] + | [facility] | [address] | [place] | [phone] | | [facility] | | [address] | | | - LABORATORY | | | | + + + + + Red Blood Cells (PRBC) - Transfuse (03/01/2020 3:02 PM PDT)Only the most recent of 4 resul ts within the time period is included.Red Blood Cells (PRBC) - Crossmatch (03/01/2020 10:49 AM PDT)Only the most recent of 4 results within the time period is included. + + + + + + | Component | Value | Ref Range | Performed | Pathologist | | | | | At | Signature | + + + + + + | Product | [id number] | | [facility] | | | Code | | | [facility] | | | | | | MEDICAL | | | | | | CENTER - | | | | | | BLOOD BANK | | + + + + + + | UNIT # | [id number] | | [facility] | | | | | | [facility] | | | | | | MEDICAL | | | | | | CENTER - | | | | | | BLOOD BANK | | + + + + + + | UNIT ABO | A | | [facility] | | | | | | [facility] | | [...] | | | INTERP | | | [facility] | | | | | | [...] + + + + | Blood | [id number] | | [facility] | | | Product | | | [facility] | | | Expiration | | | MEDICAL | | | Date and | | | CENTER - | | | Time | | | BLOOD BANK | | + + + + + + | Product | [id number] | | [facility] | | | Blood Type | | | [facility] | | | Barcode | | | [...] + | [facility] | [address] | [place], [place] | | | [facility] | | [address] | | | - BLOOD BANK | | | | + + + + + VAS Upper Extremity Venous Left (02/29/2020 3:49 PM PDT)Only the most recent of 3 results within the time period is included. + + | Specimen | + + | | + + + + + | Impressions | Performed At | + + + | No evidence of DVT. Dictated and Signed by: John Groves, | [facility] | | MD Electronically signed: 02/29/2020 8:50 PM | | + + + + + + | Narrative | Performed At | + + + | TECHNIQUE: Right upper extremity B-mode ultrasound with color and | [facility] | | duplex Doppler. CLINICAL INFORMATION: interval changes in DVT. | | | COMPARISON: None available. FINDINGS: Normal flow and | | | compressibility of the visualized deep venous structures. Unable to | | | assess augmentation due to patient pain/discomfort. | | + + + + + | Procedure Note | + + | Kobe, Kofi Results In - 02/29/2020 8:53 PM PDT | | TECHNIQUE: Right upper extremity B-mode ultrasound with color and duplex | | Doppler. | | | | CLINICAL INFORMATION: interval changes in DVT. | | | | COMPARISON: None available. | | | | FINDINGS: Normal flow and compressibility of the visualized deep venous | | structures. Unable to assess augmentation due to patient pain/discomfort. | | | | IMPRESSION: | | | | No evidence of DVT. | | | | Dictated and Signed by: John Groves MD | | Electronically signed: 02/29/2020 8:50 PM | + + + +---------+ + + | Performing | Address | City/State/Zipcode | Phone Number | | Organization | | | | + +---------+ + + | [facility] | | | | + +---------+ + + Basic Metabolic Panel (02/29/2020 4:17 AM PDT)Only the most recent of 21 results within time period is included. + + + + + + | Component | Value | Ref Range | Performed | Pathologist | | | | | At | Signature | + + + + + + | Na | 142 | 136 - 145 | [facility] | [...] + + + + | BUN | 25 (H) | 9 - 23 mg/dL | [facility] | | | | | | [facility] | | | | | | [facility] | | | | | | CENTER - | | | | | | LABORATORY | | + + + + + + | Creatinine | 0.75 | 0.55 - 1.02 | [facility] | | | | | mg/dL | [facility] | | | | | | MEDICAL | | | | | | CENTER - | | | | | | LABORATORY | | + + + + + + | eGFR if not | >60Comment: GLOMERULAR | >=60 | [facility] | | | | FILTRATION | mL/min/1.73m2 | [facility] | | | [facility] | RATE,ESTIMATED | | MEDICAL | | | | mL/min/1.41t0Vqjg than | | CENTER - | | [...] + + + + | Calcium | 8.3 (L) | 8.7 - 10.4 | [facility] | | | | | mg/dL | [facility] | | | | | | MEDICAL | | | | | | CENTER - | | | | | | LABORATORY | | + + + + + + | BUN/Creatin | 33.3 | | [facility] | | | ine Ratio | | | [facility] | | [...] | [address] | [place] | [phone] | | [facility] | | [address] | | | - LABORATORY | | | | + + + + + Occult Blood, Stool, Specimen 1 (02/29/2020 3:52 AM PDT) + + + + + + | Component | Value | Ref Range | Performed | Pathologist | | | | | At | Signature | + + + + + + | Occult | Positive | | [facility] | | | Blood in | | | [facility] | | | [facility]st | | | MEDICAL | | | Specimen, | | | CENTER - | | | Stool | | | LABORATORY | | + + + + + + + + | Specimen | + + | Stool - Stool | | specimen (specimen) | + + + + + + + | Performing | Address | City/State/Zipcode | Phone Number | | Organization | | | | + + + + + | [facility] | [address] | [place] | [phone] | | [facility] | | [address] | | | - LABORATORY | | | | + + + + + Hemoglobin and Hematocrit (02/28/2020 8:49 PM PDT)Only the most recent of 6 results within the time period is included. + + + + + + | Component | Value | Ref Range | Performed | Pathologist | | | | | At | Signature | + + + + + + | Hematocrit | 28.0 (L) | 34.0 - 47.0 % | [facility] | | | | | | [facility] | | | | | | MEDICAL | | | | | | CENTER - | | | | | | LABORATORY | | + + + + + + | Hemoglobin | 8.9 (L) | 11.5 - 16.0 | [facility] [...] + | [facility] | [address] | [place] | [phone] | | [facility] | | [address] | | | - LABORATORY | | | | + + + + + Magnesium (02/28/2020 4:38 AM PDT)Only the most recent of 17 results within the time toan montoya is included. + +-------+ + + + | Component [...] [address] | [place] | [phone] | | [facility] | | [address] | | | - LABORATORY | | | | + + + + + Extra Gold Top Tube (02/28/2020 1:00 AM PDT) + +-------+ + + + | Component | Value | Ref Range | Performed | Pathologist | | | | | At | Signature | + +-------+ + + + | Extra Gold | Done | | [facility] | | | Top Tube | | | [facility] | | [...] + | [facility] | [address] | [place] | [phone] | | [facility] | | [address] | | | - LABORATORY | | | | + + + + + Iron and Transferrin (02/28/2020 12:45 AM PDT)Only the most recent of 2 results within the time period is included. + + + + + + | Component | Value | Ref Range | Performed | Pathologist | | | | | At | Signature | + + + + + + | Iron | 41 (L) | 50 - 170 ug/dL | [facility] | | | | | | [facility] | | | | | | MEDICAL | | | | | | CENTER - | | | | | | LABORATORY | | + + + + + + | TRANSFERRIN | 148.0 (L) | 250.0 - 380.0 | [facility] | | | | | mg/dL | [facility] | | | | | | MEDICAL | | | | | | CENTER - | | | | | | LABORATORY | | + + + + + + | TIBC | 207 (L) | 235 - 425 ug/dL | [facility] | | | | | | [facility] | | | | | | MEDICAL | | | | | | CENTER - | | | | | | LABORATORY | | + + + + + + | % | 19.8 | 15.0 - 50.0 % | [facility] | | | SATURATION | | | [facility] | | [...] + | [facility] | [address] | [place] | [phone] | | [facility] | | [address] | | | - LABORATORY | | | | + + + + + Protime INR (02/28/2020 12:45 AM PDT)Only the most recent of 4 results within the time jennifer od is included. + + + + + + | Component | Value | Ref Range | Performed | Pathologist | | | | | At | Signature | + + + + + + | Prothrombin | 14.3 (H) | 11.3 - 13.9 | [facility] | | | Time | | seconds | [facility] | | | | | | MEDICAL | | | | | | CENTER - | | | | | | LABORATORY | | + + + + + + | INR | 1.1Comment: Usual Oral | 0.9 - 1.1 | [facility] | | | | Anticoagulation Range: | | [facility] | | | | 2.0 - 3.0High [...] [address] | [place] | [phone] | | [facility] | | [address] | | | - LABORATORY | | | | + + + + + Hemoglobin (02/27/2020 10:31 PM PDT) + + + + + + | Component | Value | Ref Range | Performed | Pathologist | | | | | At | Signature | + + + + + + | Hemoglobin | 7.0 (LL)Comment: | 11.5 - 16.0 | [facility] | | | | Critical Result called | g/dL | [facility] | | | | to and read back by Angela | | MARIA[facility] | | | | FUNMILAYO Cano on | | CENTER - | | | | 02/27/2020 at 10:52 PM by | | LABORATORY | | | | Mansoor George. | | | | + + + + + + + + | Specimen | + + | Blood | + + + + + + + | Performing | Address | City/State/Zipcode | Phone Number | | Organization | | | | + + + + + | [facility] | [address] | [place] | [phone] | | [facility] | | [address] | | | - LABORATORY | | | | + + + + + Urinalysis with Microscopic with Culture if Indicated (02/27/2020 1:32 PM PDT) + + + + + [...] + + + + | Clarity | Clear | Clear | [facility] | | | | | | [facility] | | | | | | MEDICAL | | | | | | CENTER - | | | | | | LABORATORY | | + + + + + + | pH, Urine | 6.0 | 5.0 - 8.0 | [facility] | | | | | | [facility] | | | | | | MEDICAL | | | | | | CENTER - | | | | | | LABORATORY | | + + + + + + | Specific | 1.013 | 1.001 - 1.030 | [facility] | | | [place], | | | [facility] | | [...] + + + + | Blood, | Negative | Negative | [facility] | [...] + + + + | Leukocyte | Negative | Negative | [facility] | [...] + + + + | Squamous | 2-5 (A) | 0 - 2 [...] + + + + | Hyaline | 15-25 (A) | 0 - 2 /LPF | [facility] | | | [place]asts, | | | [facility] | | | Urine | | | MEDICAL | | | | | | CENTER - | | | | | | LABORATORY | | + + + + + + | Urine | Urine Culture Not | | [facility] | | | Comment | Indicated | | [facility] | | | | | | MEDICAL | | | | | | CENTER - | | | | | | LABORATORY | | + + + + + + + + | Specimen | + + | Urine - Urine | | specimen obtained by | | clean catch | | procedure (specimen) | + + + + + + + | Performing | Address | City/State/Zipcode | Phone Number | | Organization | | | | + + + + + | [facility] | [address] | [place] | [phone] | | [facility] | | [address] | | | - LABORATORY | | | | + + + + + XR Knee Right 1 - 2 Vw (02/27/2020 12:57 PM PDT) + + | Specimen | + + | | + + + + + | Impressions | Performed At | + + + | No acute osseous findings. Advanced degenerative changes. | [facility] | | Dictated and Signed by: Patrick Rodriguez MD Electronically signed: | | | 02/27/2020 6:14 PM | | + + + + + + | Narrative | Performed At | + + + | XR KNEE RIGHT 1 - 2 VW 02/27/2020 12:20 PM HISTORY: knee pain. | [facility] | | COMPARISON: None. FINDINGS: There are no acute osseous | | | findings. Severe lateral compartment joint space loss is present. | | | There are moderate osteophytes of the lateral and patellofemoral | | | compartments. Bone mineralization is decreased. There is extensive | | | atherosclerosis. 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 | | | | | + + + + + | Procedure Note | + + | Kobe, Rad Results In - 02/27/2020 6:17 PM PDT XR KNEE RIGHT 1 - 2 VW 02/27/2020 12:20 | | PMHISTORY: knee pain.COMPARISON: None.FINDINGS:There are no acute osseous findings. | | Severe lateral compartment joint space lossis present. There are moderate osteophytes of | | the lateral and patellofemoralcompartments. Bone mineralization is decreased. There is | | extensiveatherosclerosis. Chondrocalcinosis is present of the medial | | meniscus.IMPRESSION: No acute osseous findings.Advanced degenerative changes.Dictated | | and Signed by: Patrick Rodriguez MD Electronically signed: 02/27/2020 6:14 PM | |There are no acute osseous findings. Severe lateral compartment joint space loss | |is present. There are moderate osteophytes of the lateral and patellofemoral | |compartments. Bone mineralization is decreased. There is extensive | |atherosclerosis. 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 | | | |IMPRESSION: | |No acute osseous findings. | | | |Advanced degenerative changes. | | | |Dictated and Signed by: Patrick Rodriguez MD | | Electronically signed: 02/27/2020 6:14 PM | + + + +---------+ + + | Performing | Address | City/State/Zipcode | Phone Number | | Organization | | | | + +---------+ + + | [facility] | | | | + +---------+ + + XR Knee Left 1 - 2 Vw (02/27/2020 12:57 PM PDT) + + | Specimen | + + | | + + + + + | Impressions | Performed At | + + + | No acute osseous findings. Mild to moderate degenerative change. | [facility] | | Dictated and Signed by: Patrick Rodriguez MD Electronically | | | signed: 02/27/2020 6:13 PM | | + + + + + + | Narrative | Performed At | + + + | XR KNEE LEFT 1 - 2 VW 02/27/2020 12:20 PM HISTORY: left knee | [facility] | | pain. COMPARISON: None. FINDINGS: There are no acute osseous | | | findings. Mild to moderate medial and lateral compartment joint space | | | loss are present. There are small osteophytes of all compartments. | | | Bone mineralization is decreased. There is a tiny joint effusion. | | | Extensive atherosclerosis is present. High density material overlaps | | | with the patellar tendon. | | + + + + + | Procedure Note | + + | Kobe, Rad Results In - 02/27/2020 6:16 PM PDT XR KNEE LEFT 1 - 2 VW 02/27/2020 12:20 | | PMHISTORY: left knee pain.COMPARISON: None.FINDINGS:There are no acute osseous findings. | | Mild to moderate medial and lateralcompartment joint space loss are present. There are | | small osteophytes of allcompartments. Bone mineralization is decreased. There is a tiny | | joint effusion.Extensive atherosclerosis is present. High density material overlaps with | | thepatellar tendon.IMPRESSION: No acute osseous findings.Mild to moderate degenerative | | change.Dictated and Signed by: Patrick Rodriguez MD Electronically signed: 02/27/2020 6:13 PM | |There are no acute osseous findings. Mild to moderate medial and lateral | |compartment joint space loss are present. There are small osteophytes of all | |compartments. Bone mineralization is decreased. There is a tiny joint effusion. | |Extensive atherosclerosis is present. High density material overlaps with the | |patellar tendon. | | | |IMPRESSION: | |No acute osseous findings. | | | |Mild to moderate degenerative change. | | | |Dictated and Signed by: Patrick Rodriguez MD | | Electronically signed: 02/27/2020 6:13 PM | + + + +---------+ + + | Performing | Address | City/State/[place] | Phone Number | | Organization | | | | + +---------+ + + | [facility] | | | | + +---------+ + + CT Cervical Spine wo Contrast (02/27/2020 12:54 PM PDT) + + | Specimen | + + | | + + + + + | Narrative | Performed At | + + + | CT CERVICAL SPINE WO CONTRAST 02/27/2020 12:42 PM CLINICAL | [facility] | | INFORMATION: Head trauma, abnormal mental status.; Neck pain, recent | | | trauma. Neck pain, s/p fall COMPARISON: Reviewed with comparison | | | to 02/26/2020. PROCEDURE: CT Head: Axial non-contrast images were | | | obtained through the head. CT Cervical Spine: Thin section | | | noncontrast axial images were obtained through the cervical spine. | | | Multiplanar reformations were obtained from the acquisition data. | | | At least one of the following CT dose optimization techniques were | | | used: Automated exposure control; Adjustment of mA and/or kV according | | | to patient size; Use of iterative reconstruction technique. | | | FINDINGS: CT Head: Brain: No intracranial hemorrhage, midline shift | | | or pathologic mass effect. No cerebral edema, mass lesion, or | | | evidence of infarct. Substance loss and white matter changes as on | | | the prior study. 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 Stable. Potential | | | previous lacunar infarcts. Stable. Ventricles and extra-axial | | | fluid spaces: No abnormal extra-axial fluid collections. | | | Paranasal sinuses and mastoid air cells: Normal. Calvarium and | | | extracranial soft tissue: Thickening of the right frontal | | | parasagittal calvarium. Stable. Orbits: Imaged portions of the | | | orbits are normal. CT Cervical Spine: Alignment: Normal. | | | Vertebrae: Nondisplaced fractures are visualized along the anterior | | | lamina of C2 bilaterally (series 5 image 55). Extensive spondylosis | | | is observed. Cervical disc levels: Multilevel moderate to severe | | | disc narrowing are noted. Facets and posterior spinal elements: No | | | facet subluxation, dislocation, fracture, or evidence of acute | | | abnormality. Multilevel degenerative changes. Paraspinal soft | | | tissues: No evidence of acute paraspinal soft tissue abnormality. | | | IMPRESSION- 1. No acute intracranial hemorrhage or mass effect. 2. | | | Nondisplaced fractures are visualized along the anterior lamina of C2 | | | bilaterally (series 5 image 55). A preliminary report was sent | | | by [facility] on 02/27/2020 1:18 PM. This did not mention the | | | nondistended fractures involving the anterior lamina of C2 | | | bilaterally. This information was conveyed to Dr. Lux. Dictated | | | and Signed by: Patrick Rodriguez MD Electronically signed: 02/27/2020 | | | 1:42 PM | | + + + + + | Procedure Note | + + | Kobe, Rad Results In - 02/27/2020 1:[address] CERVICAL SPINE WO CONTRAST 02/27/2020 | | 12:42 PMCLINICAL INFORMATION:Head trauma, abnormal mental status.; Neck pain, recent | | trauma. Neckpain, s/p fallCOMPARISON:Reviewed with comparison to 02/26/2020.PROCEDURE:CT | | Head: Axial non-contrast images were obtained through the head.CT Cervical Spine: Thin | | section noncontrast axial images were obtainedthrough the cervical spine.Multiplanar | | reformations were obtained from the acquisition data.At least one of the following CT | | dose optimization techniques wereused: Automated exposure control; Adjustment of mA | | and/or kV accordingto patient size; Use of iterative reconstruction | | technique.FINDINGS:CT Head:Brain: No intracranial hemorrhage, midline shift or | | pathologic masseffect. No cerebral edema, mass lesion, or evidence of infarct.Substance | | loss and white matter changes as on the prior study. Focalencephalomalacia of the left | | occipital lobe likely due to prior area ofinfarction. Stable. Potential previous | | lacunar infarcts. Stable.Ventricles and extra-axial fluid spaces: No abnormal | | extra-axial fluidcollections.Paranasal sinuses and mastoid air cells: Normal.Calvarium | | and extracranial soft tissue: Thickening of the right frontalparasagittal calvarium. | | Stable.Orbits: Imaged portions of the orbits are normal.CT Cervical Spine:Alignment: | | Normal.Vertebrae: Nondisplaced fractures are visualized along the anterior lamina of | | [id number] (series 5 image 55). Extensive spondylosis is observed.Cervical disc | | levels: Multilevel moderate to severe disc narrowing are noted.Facets and posterior | | spinal elements: No facet subluxation,dislocation, fracture, or evidence of acute | | abnormality. Multileveldegenerative changes.Paraspinal soft tissues: No evidence of | | acute paraspinal soft tissueabnormality.IMPRESSION- 1. No acute intracranial hemorrhage | | or mass effect.2. Nondisplaced fractures are visualized along the anterior lamina of | | [id number] (series 5 image 55).A preliminary report was sent by [facility] on | | 02/27/2020 1:18 PM. This didnot mention the nondistended fractures involving the | | anterior lamina of [id number]. This information was conveyed to Dr. Lux.Dictated | | and Signed by: Patrick Rodriguez MD Electronically signed: 02/27/2020 1:42 PM | |infarction. Stable. Potential previous lacunar infarcts. Stable. | | | |Ventricles and extra-axial fluid spaces: No abnormal extra-axial fluid | |collections. | | | |Paranasal sinuses and mastoid air cells: Normal. | | | |Calvarium and extracranial soft tissue: Thickening of the right frontal | |parasagittal calvarium. Stable. | | | |Orbits: Imaged portions of the orbits are normal. | | | |CT Cervical Spine: | |Alignment: Normal. | | | |Vertebrae: Nondisplaced fractures are visualized along the anterior lamina of C2 | |bilaterally (series 5 image 55). Extensive spondylosis is observed. | | | |Cervical disc levels: Multilevel moderate to severe disc narrowing are noted. | | | |Facets and posterior spinal elements: No facet subluxation, | |dislocation, fracture, or evidence of acute abnormality. Multilevel | |degenerative changes. | | | |Paraspinal soft tissues: No evidence of acute paraspinal soft tissue | |abnormality. | | | |IMPRESSION- | |1. No acute intracranial hemorrhage or mass effect. | |2. Nondisplaced fractures are visualized along the anterior lamina of C2 | |bilaterally (series 5 image 55). | | | |A preliminary report was sent by [facility] on 02/27/2020 1:18 PM. This did | |not mention the nondistended fractures involving the anterior lamina of C2 | |bilaterally. This information was conveyed to Dr. Lux. | | | |Dictated and Signed by: Patrick Rodriguez MD | | Electronically signed: 02/27/2020 1:42 PM | + + + +---------+ + + | Performing | Address | City/State/Zipcode | Phone Number | | Organization | | | | + +---------+ + + | [facility] | | | | + +---------+ + + CT Chest Abdomen Pelvis wo Contrast (02/27/2020 12:54 PM PDT) + + | Specimen | + + | | + + + + + | Narrative | Performed At | + + + | CT CHEST ABDOMEN PELVIS WO CONTRAST 02/27/2020 12:42 PM CLINICAL | [facility] | | INFORMATION: Head trauma, minor (Age > 65y). [facility] COMPARISON: CT | | | CHEST WO CONTRAST (02/09/2020); CT CHEST ABDOMEN PELVIS W CONTRAST | | | (01/31/2020); CT CHEST WO CONTRAST (12/01/2019); CT ABDOMEN PELVIS W | | | CONTRAST (10/27/2019); PROCEDURE: Axial images through the chest, | | | abdomen and pelvis. Multiplanar reconstructions. At least one of | | | the following CT dose optimization techniques were used: Automated | | | exposure control; Adjustment of mA and/or kV according to patient | | | size; Use of iterative reconstruction technique. FINDINGS: CHEST | | | Lungs, Pleura and Airways: Increasing ground-glass opacity and | | | centrilobular nodules in the right upper lobe. Stable to improved | | | reticulonodular opacity in the right lower lobe and right middle lobe. | | | Several ground-glass nodular opacities in the left upper lobe have | | | increased. Bronchial wall thickening. Trace right pleural | | | effusion, decreased in volume compared to 02/09/2020. 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 Advanced coronary calcification. Lymph Nodes: No | | | adenopathy. ABDOMEN Solid organ evaluation suboptimal without | | | contrast. Liver and Biliary: Postsurgical findings at the gallbladder | | | fossa. Common bile duct measures up to 20 mm tapering to 11 mm | | | without definite choledocholithiasis. Pancreas, Spleen and Adrenals: | | | Spleen and adrenal glands have a stable appearance. Pancreatic | | | duct volume has slightly decreased compared to the 01/31/2020 study. | | | No definite discrete pancreatic mass, accounting for lack of | | | contrast administration. Kidneys: Hyperdense renal cysts bilaterally, | | | as before. No hydronephrosis. No ureteral stone. ABDOMEN AND | | | PELVIS Bowel: Interval increase in inflammatory changes at the | | | rectosigmoid junction at the level or near the level of a surgical | | | anastomosis. Colitis/proctitis is again suggested with some interval | | | worsening. There is some probable wall thickening. While there is | | | no definite intramural abscess (contrast was not administered), | | | intramural phlegmon is a possibility. There is some extraluminal | | | gas and fluid in the presacral space measuring approximately 4 cm | | | (87/602), retrospectively similar to 01/31/2020. While this could | | | represent changes from end-to-side anastomosis (with blind-ending | | | pouch), the findings do raise suspicion for abscess in the presacral | | | region and raise suspicion for anastomotic breakdown or leak, in the | | | appropriate clinical setting. Rectal tumor is not entirely excluded | | | on the current study. Background diverticulosis. The appendix is | | | not well visualized but there is no evidence for right lower quadrant | | | inflammation. Stomach and small bowel have a benign appearance. | | | Vessels: 2.8 cm abdominal aorta. Advanced calcification in the | | | aorta. Lymph Nodes: No adenopathy. Peritoneum and Retroperitoneum: | | | Inflammation in the mesorectal fat, increased since the prior study. | | | There is some wall thickening. Mass lesion not excluded. | | | Intramural abscess also not excluded. PELVIS Genitourinary: | | | Distal ureters and bladder appear normal. No pelvic masses. | | | BODY WALL Soft Tissues: No bowel or inflamed fat containing hernia, | | | mass or hemorrhage. Bones: Old right 8th rib fracture. There are | | | multiple old left-sided rib fractures. Inferior pubic ramus | | | fracture on the right side, likely subacute, as previously described. | | | No definite acute fracture. IMPRESSION- 1. No definite acute | | | fracture. Multiple old rib deformities. Subacute right inferior | | | pubic ramus fracture, as previously described. 2. Accounting for | | | unenhanced imaging, no definite acute solid organ injury. 3. Slight | | | interval increase in pulmonary parenchymal opacities on the right | | | side compared to the prior study, likely inflammatory or infectious. | | | 4. Trace right pleural effusion, nonhemorrhagic. No pneumothorax. | | | 5. Interval increase in inflammatory changes at the rectosigmoid | | | junction at the level or near the level of a surgical anastomosis. | | | Colitis/proctitis is again suggested with some interval worsening. | | | There is some probable wall thickening. While there is no definite | | | intramural abscess (contrast was not administered), intramural | | | phlegmon is a possibility. There is some extraluminal gas and fluid | | | in the presacral space measuring approximately 4 cm (87/602), | | | retrospectively similar to 01/31/2020. While this could represent | | | changes from end-to-side anastomosis (with blind-ending pouch), the | | | findings do raise suspicion for abscess in the presacral region and | | | raise suspicion for anastomotic breakdown or leak, in the appropriate | | | clinical setting. Rectal tumor is not entirely excluded on the | | | current study. 6. Please see above for other incidental and chronic | | | findings. A preliminary report was sent by [facility] with no | | | significant discrepancy on 02/27/2020 1:19 PM. Dictated and | | | Signed by: Patrick Rodriguez MD Electronically signed: 02/27/2020 1:54 | | | PM | | + + + + + | Procedure Note | + + | Kobe, Rad Results In - 02/27/2020 1:[address] CHEST ABDOMEN PELVIS WO CONTRAST | | 02/27/2020 12:42 PMCLINICAL INFORMATION:Head trauma, minor (Age > 65y). GLFCOMPARISON:CT | | CHEST WO CONTRAST (02/09/2020); CT CHEST ABDOMEN PELVIS W CONTRAST(01/31/2020); CT CHEST WO | | CONTRAST (12/01/2019); CT ABDOMEN PELVIS WCONTRAST (10/27/2019);PROCEDURE:Axial images | | through the chest, abdomen and pelvis. Multiplanarreconstructions.At least one of the | | following CT dose optimization techniques wereused: Automated exposure control; | | Adjustment of mA and/or kV accordingto patient size; Use of iterative reconstruction | | technique.FINDINGS:CHESTLungs, Pleura and Airways: Increasing ground-glass opacity | | andcentrilobular nodules in the right upper lobe. Stable to improvedreticulonodular | | opacity in the right lower lobe and right middle lobe.Several ground-glass nodular | | opacities in the left upper lobe haveincreased. Bronchial wall thickening. Trace right | | pleural effusion,decreased in volume compared to 02/09/2020.Mediastinum: Status post | | TAVR. Advanced coronary calcification.Lymph Nodes: No adenopathy.ABDOMENSolid organ | | evaluation suboptimal without contrast.Liver and Biliary: Postsurgical findings at the | | gallbladder fossa.Common bile duct measures up to 20 mm tapering to 11 mm | | withoutdefinite choledocholithiasis.Pancreas, Spleen and Adrenals: Spleen and adrenal | | glands have a stableappearance. Pancreatic duct volume has slightly decreased compared | | tothe 01/31/2020 study. No definite discrete pancreatic mass, accountingfor lack of | | contrast administration.Kidneys: Hyperdense renal cysts bilaterally, as before. | | Nohydronephrosis. No ureteral stone.ABDOMEN AND PELVISBowel: Interval increase in | | inflammatory changes at the rectosigmoidjunction at the level or near the level of a | | surgical anastomosis.Colitis/proctitis is again suggested with some interval | | worsening.There is some probable wall thickening. While there is no definiteintramural | | abscess (contrast was not administered), intramural phlegmonis a possibility. There is | | some extraluminal gas and fluid in thepresacral space measuring approximately 4 cm | | (87/602), retrospectivelysimilar to 01/31/2020. While this could represent changes | | ldahsgi-dg-otrd anastomosis (with blind-ending pouch), the findings doraise suspicion | | for abscess in the presacral region and raise suspicionfor anastomotic breakdown or | | leak, in the appropriate clinical setting.Rectal tumor is not entirely excluded on the | | current study. Backgrounddiverticulosis. The appendix is not wellvisualized but there | | is no evidence for right lower quadrantinflammation. Stomach and small bowel have a | | benign appearance.Vessels: 2.8 cm abdominal aorta. Advanced calcification in the | | aorta.Lymph Nodes: No adenopathy.Peritoneum and Retroperitoneum: Inflammation in the | | mesorectal fat,increased since the prior study. There is some wall thickening. | | Masslesion not excluded. Intramural abscess also not excluded.PELVISGenitourinary: | | Distal ureters and bladder appear normal. No pelvicmasses.BODY WALLSoft Tissues: No | | bowel or inflamed fat containing hernia, mass orhemorrhage.Bones: Old right 8th rib | | fracture. There are multiple old left-sidedrib fractures. Inferior pubic ramus | | fracture on the right side, likelysubacute, as previously described. No definite acute | | fracture.IMPRESSION- 1. No definite acute fracture. Multiple old rib deformities. | | Subacuteright inferior pubic ramus fracture, as previously described.2. Accounting for | | unenhanced imaging, no definite acute solid organinjury.3. Slight interval increase in | | pulmonary parenchymal opacities on theright side compared to the prior study, likely | | inflammatory orinfectious.4. Trace right pleural effusion, nonhemorrhagic. No | | pneumothorax.5. Interval increase in inflammatory changes at the rectosigmoidjunction at | | the level or near the level of a surgical anastomosis.Colitis/proctitis is again | | suggested with some interval worsening.There is some probable wall thickening. While | | there is no definiteintramural abscess (contrast was not administered), intramural | | phlegmonis a possibility. There is some extraluminal gas and fluid in thepresacral | | space measuring approximately 4 cm (87/602), retrospectivelysimilar to 01/31/2020. While | | this could represent changes dwuxjsy-mb-zzdj anastomosis (with blind-ending pouch), the | | findings doraise suspicion for abscess in the presacral region and raise suspicionfor | | anastomotic breakdown or leak, in the appropriate clinical setting.Rectal tumor is not | | entirely excluded on the current study.6. Please see above for other incidental and | | chronic findings.A preliminary report was sent by [facility] with no significant | | discrepancyon 02/27/2020 1:19 PM.Dictated and Signed by: Patrick Rodriguez MD Electronically | | signed: 02/27/2020 1:54 PM | |Vessels: 2.8 cm abdominal aorta. Advanced calcification in the aorta. | |Lymph Nodes: No adenopathy. | |Peritoneum and Retroperitoneum: Inflammation in the mesorectal fat, | |increased since the prior study. There is some wall thickening. Mass | |lesion not excluded. Intramural abscess also not excluded. | | | |PELVIS | |Genitourinary: Distal ureters and bladder appear normal. No pelvic | |masses. | | | |BODY WALL | |Soft Tissues: No bowel or inflamed fat containing hernia, mass or | |hemorrhage. | |Bones: Old right 8th rib fracture. There are multiple old left-sided | |rib fractures. Inferior pubic ramus fracture on the right side, likely | |subacute, as previously described. No definite acute fracture. | | | |IMPRESSION- | |1. No definite acute fracture. Multiple old rib deformities. Subacute | |right inferior pubic ramus fracture, as previously described. | |2. Accounting for unenhanced imaging, no definite acute solid organ | |injury. | |3. Slight interval increase in pulmonary parenchymal opacities on the | |right side compared to the prior study, likely inflammatory or | |infectious. | |4. Trace right pleural effusion, nonhemorrhagic. No pneumothorax. | |5. Interval increase in inflammatory changes at the rectosigmoid | |junction at the level or near the level of a surgical anastomosis. | |Colitis/proctitis is again suggested with some interval worsening. | |There is some probable wall thickening. While there is no definite | |intramural abscess (contrast was not administered), intramural phlegmon | |is a possibility. There is some extraluminal gas and fluid in the | |presacral space measuring approximately 4 cm (87/602), retrospectively | |similar to 01/31/2020. While this could represent changes from | |end-to-side anastomosis (with blind-ending pouch), the findings do | |raise suspicion for abscess in the presacral region and raise suspicion | |for anastomotic breakdown or leak, in the appropriate clinical setting. | |Rectal tumor is not entirely excluded on the current study. | |6. Please see above for other incidental and chronic findings. | | | |A preliminary report was sent by [facility] with no significant discrepancy | |on 02/27/2020 1:19 PM. | | | |Dictated and Signed by: Patrick Rodriguez MD | | Electronically signed: 02/27/2020 1:54 PM | + + + +---------+ + + | Performing | Address | City/State/Zipcode | Phone Number | | Organization | | | | + +---------+ + + | [facility] | | | | + +---------+ + + Procalcitonin (02/27/2020 12:31 PM PDT)Only the most recent of 2 results within the time susan choudhary is included. + + + + + + | Component | Value | Ref Range | Performed | Pathologist | | | | | At | Signature | + + + + + + | Procalciton | 0.05 | <=0.50 ng/mL | [facility] | | | in | | | [facility] | | [...] | [address] | [place] | [phone] | | [facility] | | [address] | | | - LABORATORY | | | | + + + + + Extra Lavender Top Tube (02/27/2020 12:31 PM PDT) + +-------+ + + + | Component | Value | Ref Range | Performed | Pathologist | | | | | At | Signature | + +-------+ + + + | Extra | Done | | [facility] | | | Lavender | | | [facility] | | | Top Tube | | | MEDICAL | | | | | | CENTER - | | | | | | LABORATORY | | + +-------+ + + + + + | Specimen | + + | Blood | + + + + + + + | Performing | Address | City/State/Rustcode | Phone Number | | Organization | | | | + + + + + | [facility] | [address] | [place] | [phone] | | [facility] | | [address] | | | - LABORATORY | | | | + + + + + Extra Blue Top Tube (02/27/2020 12:31 PM PDT)Only the most recent of 2 results within the period is included. + +-------+ + + + | Component | Value | Ref Range | Performed | Pathologist | | | | | At | Signature | + +-------+ + + + | Extra Blue | Done | | [facility] | | | Top Tube | | | [facility] | | [...] + | [facility] | [address] | [place], [place] | [phone] | | [facility] | | [address] | | | - LABORATORY | | | | + + + + + Troponin I (02/27/2020 12:31 PM PDT)Only the most recent of 4 results within the time perio d is included. + + + + + + | Component | Value | Ref Range | Performed | Pathologist | | | | | At | Signature | + + + + + + | Troponin I | 0.01Comment: | <0.06 ng/mL | [facility] | | | | Comment:Reference | | [facility] | | | | Ranges: 0.00-0.06 [...] | | | | | | [employer] | | | | | [...] + | [facility] | [address] | [place] | [phone] | | [facility] | | [address] | | | - LABORATORY | | | | + + + + + C-Reactive Protein (02/27/2020 12:31 PM PDT)Only the most recent of 3 results within the ti period is included. + + + + + + | Component | Value | Ref Range | Performed | Pathologist | | | | | At | Signature | + + + + + + | CRP | 22.20 (H) | <10.00 mg/L | [facility] | | | | | | [facility] [...] + | [facility] | [address] | [place], [place] | [phone] | | [facility] | | [address] | | | - LABORATORY | | | | + + + + + Lipase (02/27/2020 12:31 PM PDT)Only the most recent of 3 results within the time period is included. + + + + + + | Component | Value | Ref Range | Performed | Pathologist | | | | | At | Signature | + + + + + + | Lipase | 30Comment: New method in | 12 - 53 U/L | [facility] | | | | use as of December 02, | | [facility] | | | | 2018. Check reference [...] [address] | [place] | [phone] | | [facility] | | [address] | | | - LABORATORY | | | | + + + + + CK Total (02/27/2020 12:31 PM PDT) + +-------+ + + + | Component | Value | Ref Range | Performed | Pathologist | | | | | At | Signature | + +-------+ + + + | CK TOTAL | 46 | 34 - 145 U/L | [facility] | | | | | | [facility] [...] [address] | [place], [place] | [phone] | | [facility] | | [address] | | | - LABORATORY | | | | + + + + + Type and Screen (02/27/2020 12:26 PM PDT)Only the most recent of 4 results within the time period is included. + + + + + + | [...] | | Screen | | | [facility] | | | | | | MEDICAL | | | | | | CENTER - | | | | | | BLOOD BANK | | + + + + + + + + | Specimen | + + | Blood - Structure of | | antecubital vein | | (body structure) | + + + + + + + | Performing | Address | City/State/Zipcode | Phone Number | | Organization | | | | + + + + + | [facility] | [address] | [place] | | | [facility] | | [address] | | | - BLOOD BANK | | | | + + + + + Lactic Acid (02/27/2020 12:26 PM PDT)Only the most recent of 2 results within the time jennifer od is included. + +-------+ + + + | Component | Value | Ref Range | Performed | Pathologist | | | | | At | Signature | + +-------+ + + + | Lactate | 1.8 | 0.5 - 2.2 | [facility] | [...] | [address] | [place], [place] | [phone] | | [facility] | | [address] | | | - LABORATORY | | | | + + + + + POC Glucose (02/24/2020 12:32 PM PDT)Only the most recent of 57 results within the time per iod is included. + +-------+ + + + | Component | Value | Ref Range | Performed | Pathologist | | | | | At | Signature | + +-------+ + + + | Glucose, | 75 | 70 - 109 mg/dL | [facility] | | | POC | | | [facility] | | [...] [address] | [place] | [phone] | | [facility] | | [address] | | | - LABORATORY | | | | + + + + + [facility] STAT instructions for COVID-19 tracking (02/22/2020 10:45 AM PDT)Only the most rece nt of 3 results within the time period is included. + +-------+ + + + | Component | Value | Ref Range | Performed | Pathologist | | | | | At | Signature | + +-------+ + + + | [facility] | | | [facility] | | | [...] + +---------+ + + Coronavirus (COVID-19) NAAT (02/22/2020 10:45 AM PDT)Only the most recent of 3 results with in the time period is included. + + + + + + | Component | Value | Ref Range | Performed | Pathologist | | | | | At | Signature | + + + + + + | SARS | Not Detected | Not Detected | [facility] | | | coronavirus | | | | | | 2 NAAT | | | | | + + + + + + + + | Specimen | + + | Tissue - Entire | | nasopharynx (body | | structure) | + + + + + | Narrative | Performed At | + + + | See scanned | [facility] | | report | | + + + + +---------+ + + | Performing | Address | City/State/Zipcode | Phone Number | | Organization | | | | + +---------+ + + | [facility] | | | | + +---------+ + + Culture, Blood (02/20/2020 8:19 AM PDT)Only the most recent of 4 results within the time sameer jones is included. + + + + + + | [...] + | [facility] | [address] | [place] | [phone] | | [facility] | | [address] | | | - LABORATORY | | | | + + + + + Hepatic Function Panel (02/18/2020 6:23 AM PDT) + +---------+ + + + | Component | Value | Ref Range | Performed | Pathologist | | | | | At | Signature | + +---------+ + + + | Bilirubin | 0.5 | 0.3 - 1.2 mg/dL | [facility] | | | Total | | | [facility] | | | | | | MEDICAL | | | | | | CENTER - | | | | | | LABORATORY | | + +---------+ + + + | Total | 5.4 (L) | 5.7 - 8.2 g/dL | [facility] | | | Protein | | | [facility] | | | | | | MEDICAL | | | | | | CENTER - | | | | | | LABORATORY | | + +---------+ + + + | Albumin | 3.1 (L) | 3.2 - 4.8 g/dL | [facility] | | | | | | [facility] | | | | | | MEDICAL | | | | | | CENTER - | | | | | | LABORATORY | | + +---------+ + + + | AST | 39 (H) | 0 - 34 U/L | [facility] | | | | | | [facility] | | | | | | MEDICAL | | | | | | CENTER - | | | | | | LABORATORY | | + +---------+ + + + | ALT | 64 (H) | 10 - 49 U/L | [facility] | | | | | | [facility] | | | | | | MEDICAL | | | | | | CENTER - | | | | | | LABORATORY | | + +---------+ + + + | Alkaline | 92 | 46 - 116 U/L | [facility] | | | Phosphatase | | | [facility] | | | | | | MEDICAL | | | | | | CENTER - | | | | | | LABORATORY | | + +---------+ + + + | Globulin | 2.3 | 2.1 - 3.8 g/dL | [facility] | | | | | | [facility] | | | | | | MEDICAL | | | | | | CENTER - | | | | | | LABORATORY | | + +---------+ + + + | Albumin/Sarika | 1.3 | 0.8 - 1.9 | [facility] | | | bulin Ratio | | | [facility] | | | | | | MEDICAL | | | | | | CENTER - | | | | | | LABORATORY | | + +---------+ + + + | Bilirubin, | 0.20 | 0.00 - 0.30 | [facility] | | | Direct | | mg/dl | [facility] | | | | [...] + | [facility] | [address] | [place], [place] | [phone] | | [facility] | | [address] | | | - LABORATORY | | | | + + + + + Culture, Wound, Smear (02/16/2020 1:37 PM PDT)Only the most recent of 2 results within the time period is included. + + + + + + | Component | Value | Ref Range | Performed | Pathologist | | | | | At | Signature | + + + + + + | Culture | 4+ Enterococcus | | [facility] | | | | faecalisComment: | | [facility] | | | | Combination therapy of | | MEDICAL | | | | ampicillin, penicillin, | | CENTER - | | | | or vancomycin (for | | LABORATORY | | | | susceptible strains), | | | | | | plus an aminoglycoside, | | | | | | is usually indicated for | | | | | | serious enterococcal | | | | | | infections, such as | | | | | | endocarditis, unless | | | | | | high-level resistance to | | | | | | both gentamicin and | | | | | | streptomycin is | | | | | | documented; such | | | | | | combinations are | | | | | | predicted to result in | | | | | | synergistic killing of | | | | | | the enterococcus. | | | | + + + + + + | Culture | 4+ Roxanna albicans | | [facility] | | | | | | [facility] | | | | | | MEDICAL | | | | | | CENTER - | | | | | | LABORATORY | | + + + + + + | Gram Stain | No white blood cells | | [facility] | | | Result | (PMNs) seen | | [facility] | | | | | | MEDICAL | | | | | | CENTER - | | | | | | LABORATORY | | + + + + + + | Gram Stain | 2+ Yeast with | | [facility] | | | Result | pseudohyphae | | [facility] | | | [...] Susceptibility | + + +--------+ + | Enterococcus | Ampicillin | | <=2 ug/mL: | | faecalis | | | Sensitive | + + +--------+ + | Enterococcus | Penicillin G | | 8 ug/mL: Sensitive | | faecalis | | | | + + +--------+ + | Enterococcus | Vancomycin | | 1 ug/mL: Sensitive | | faecalis | | | | + + +--------+ + + + + + + | Performing | Address | City/State/Zipcode | Phone Number | | Organization | | | | + + + + + | [facility] | [address] | [place] | [phone] | | [facility] | | [address] | | | - LABORATORY | | | | + + + + + Culture, Anaerobic (02/16/2020 1:37 PM PDT)Only the most recent of 2 results within the ti tn period is included. + + + + + + | Component | Value | Ref Range | Performed | Pathologist | | | | | At | Signature | + + + + + + | Culture | 1+ Bacteroides | | [facility] | | | | ovatusComment: | | [facility] | | | | Beta-lactamase | | MEDICAL | | | | positiveThe drug of | | CENTER - | | | | choice for Bacteroides | | LABORATORY | | | | species, including | | | | | | Bacteroides fragilis, is | | | | | [...] | + + + + + | [facility] | [address] | [place], [place] | [phone] | | [facility] | | [address] | | | - LABORATORY | | | | + + + + + XR Chest PA and Lateral (02/14/2020 5:16 PM PDT) + + | Specimen | + + | | + + + + + | Impressions | Performed At | + + + | Findings consistent with chronic obstructive pulmonary disease. | [facility] | | No radiographic findings to suggest congestive heart failure. | | | Dictated and Signed by: Edwin Jarrell MD Electronically signed: | | | 02/14/2020 7:55 PM | | + + + + + + | Narrative | Performed At | + + + | EXAM: XR CHEST PA AND LATERAL dated 02/14/2020 5:16 PM HISTORY: | [facility] | | Lung crackles are these COPD or from CHF? Comparison: 02/11/2020. | | | TECHNIQUE: Frontal and lateral views of the chest. FINDINGS: | | | The lungs are symmetrically aerated. There is hyperexpansion. | | | There is a collection of radiopaque densities projecting over the | | | soft tissues and right lung. No interstitial thickening. There | | | are no pleural effusions. There is no pneumothorax. The cardiac | | | and mediastinal contours are not enlarged. No acute osseous | | | abnormalities. | | + + + + + | Procedure Note | + + | Kobe, Rad Results In - 02/14/2020 7:58 PM PDT EXAM: XR CHEST PA AND LATERAL dated | | 02/14/2020 5:16 PMHISTORY: Lung crackles are these COPD or from CHF?Comparison: | | 02/11/2020.TECHNIQUE: Frontal and lateral views of the chest.FINDINGS:The lungs are | | symmetrically aerated. There is hyperexpansion. There is acollection of radiopaque | | densities projecting over the soft tissues and rightlung. No interstitial thickening. | | There are no pleural effusions. There is nopneumothorax. The cardiac and mediastinal | | contours are not enlarged. No acuteosseous abnormalities. IMPRESSION: Findings | | consistent with chronic obstructive pulmonary disease.No radiographic findings to | | suggest congestive heart failure. Dictated and Signed by: Edwin Jarrell MD | | Electronically signed: 02/14/2020 7:55 PM | |collection of radiopaque densities projecting over the soft tissues and right | |lung. No interstitial thickening. There are no pleural effusions. There is no | |pneumothorax. The cardiac and mediastinal contours are not enlarged. No acute | |osseous abnormalities. | | | |IMPRESSION: | | | |Findings consistent with chronic obstructive pulmonary disease. | | | |No radiographic findings to suggest congestive heart failure. | | | |Dictated and Signed by: Edwin Jarrell MD | | Electronically signed: 02/14/2020 7:55 PM | + + + +---------+ + + | Performing | Address | City/State/Zipcode | Phone Number | | Organization | | | | + +---------+ + + | [facility] | | | | + +---------+ + + ECHO Complete (02/14/2020 3:53 PM PDT) + +--------+ + + + | Component | Value | Ref Range | Performed | Pathologist | | | | | At | Signature | + +--------+ + + + | LVIDd | 3.75 | cm | [facility] | | + +--------+ + + + | FS | 31 | % | [facility] | | + +--------+ + + + | LA volume | 55.08 | mL | [facility] | | + +--------+ + + + | AV mean | 22.1 | mmHg | [facility] | | | gradient | | | | | + +--------+ + + + | Aortic | 1.2 | cm2 | [facility] | | | Valve Area | | | | | | by | | | | | | Continuity | | | | | | VTI | | | | | + +--------+ + + + | MV mean | 6.93 | mmHg | [facility] | | | gradient | | | | | + +--------+ + + + | MV Area by | 1.22 | cm2 | [facility] | | | P 1/2 | | | | | | method | | | | | + +--------+ + + + | MV Area by | 1.61 | cm2 | [facility] | | | Continuity | | | | | | Equation | | | | | + +--------+ + + + | IVRT | 103.81 | msec | [facility] | | + +--------+ + + + | LVOT | 1.88 | cm | [facility] | | | diameter | | | | | + +--------+ + + + | LVOT peak | 121.86 | cm/s | [facility] | | | magalie | | | | | + +--------+ + + + | LVOT peak | 25.59 | cm | [facility] | | | VTI | | | | | + +--------+ + + + | AV peak magalie | 302.62 | cm/s | [facility] | | + +--------+ + + + | AV VTI | 59.27 | cm | [facility] | | + +--------+ + + + | AV peak | 36.63 | mmHg | [facility] | | | gradient | | | | | + +--------+ + + + | MV peak | 18.64 | mmHg | [facility] | | | gradient | | | | | + +--------+ + + + | MV Pressure | 180.78 | msec | [facility] | | | 1/2 time | | | | | + +--------+ + + + | LA Volume | 37 | mL/m2 | [facility] | | | Index | | | | | + +--------+ + + + | AV LVOT | 5.94 | mmHg | [facility] | | | Peak | | | | | | Gradient | | | | | + +--------+ + + + | AV LVOT | 3.92 | mmHg | [facility] | | | Mean | | | | | | Gradient | | | | | + +--------+ + + + | TR Peak | 36 | mmHg | [facility] | | | Gradient | | | | | + +--------+ + + + | TR Velocity | 300.22 | cm/s | [facility] | | + +--------+ + + + | LV | 7.55 | cm | [facility] | | | Diastolic | | | | | | Length 4C | | | | | + +--------+ + + + | LV | 68 | % | [facility] | | | Schulz's | | | | | | Biplane EF | | | | | + +--------+ + + + | LV ED | 56.3 | ml | [facility] | | | Volume | | | | | | (Schulz's) | | | | | + +--------+ + + + | LV ED | 38 | ml/m2 | [facility] | | | Volume | | | | | | Index | | | | | + +--------+ + + + | LV ES | 18.25 | ml | [facility] | | | Volume | | | | | + +--------+ + + + | LVOT Mean | 96.06 | cm/s | [facility] | | | Velocity | | | | | + +--------+ + + + | MV E' | 5 | cm/s | [facility] | | | Septal | | | | | | Velocity | | | | | + +--------+ + + + | MV | 181.87 | cm/s2 | [facility] | | | Deceleratio | | | | | | n [place] | | | | | + +--------+ + + + | MV | 623.37 | msec | [facility] | | | Deceleratio | | | | | | n Time | | | | | + +--------+ + + + | MV E/A | 0.62 | | [facility] | | | Ratio | | | | | + +--------+ + + + | MV Mean | 122.29 | cm/s | [facility] | | | Velocity | | | | | + +--------+ + + + | MV Peak | 182.77 | cm/s | [facility] | | | A-Wave | | | | | + +--------+ + + + | MV Peak | 113.37 | cm/s | [facility] | | | E-Wave | | | | | + +--------+ + + + | AV Mean | 225.4 | cm/s | [facility] | | | Velocity | | | | | + +--------+ + + + | LA/Aorta | 1.12 | | [facility] | | | Ratio | | | | | + +--------+ + + + | LA Area | 19.49 | cm2 | [facility] | | + +--------+ + + + | MV E/E | 22.67 | | [facility] | | | SEPTAL | | | | | + +--------+ + + + | LA Major | 0.5927 | cm | [facility] | | + +--------+ + + + | LV ES | 12 | ml/m2 | [facility] | | | Volume | | | | | | Index | | | | | + +--------+ + + + | Vitals | 167.6 | | [facility] | | | Height | | | | | + +--------+ + + + | Vitals | 46.60 | | [facility] | | | Weight | | | | | + +--------+ + + + | Aortic Root | 3.25 | cm | [facility] | | | Diameter | | | | | + +--------+ + + + | IVS | 1.2 | cm | [facility] | | | Diastolic | | | | | | Thickness | | | | | | MM | | | | | + +--------+ + + + | LVPW | 1.09 | cm | [facility] | | | Diastolic | | | | | | Thickness | | | | | | MM | | | | | + +--------+ + + + | IVS | 1.47 | cm | [facility] | | | Systolic | | | | | | Thickness | | | | | | MM | | | | | + +--------+ + + + | LV Systolic | 2.59 | cm | [facility] | | | Diameter | | | | | | MM | | | | | + +--------+ + + + | LVPW | 1.33 | cm | [facility] | | | Systolic | | | | | | Thickness | | | | | | MM | | | | | + +--------+ + + + | AV Cusp | 1.91 | cm | [facility] | | | Seperation | | | | | | MM | | | | | + +--------+ + + + | LA Systolic | 3.63 | cm | [facility] | | | Diameter | | | | | | MM | | | | | + +--------+ + + + | TAPSE | 1.5 | cm | [facility] | | + +--------+ + + + | LVEF-TTE | 68 | | [facility] | | | TRANSTHORAC | | | | | | IC ECHO | | | | | + +--------+ + + + + + | Specimen | + + | | + + + + -+ | Narrative | Performed At | + + -+ | Transthoracic | [facility] | | Echocardiography Report (TTE) Demographics Patient Name CARLINE | | | ÁNGELA Room Number 328 | | | MAUREEN Patient Number [id number] Date of Study | | | 02/14/2020 Visit Number [id number] Referring | | | Physician DIMAS Coe | | | Derrick Hand RAJESH COREY Number Date of | | | 1930 Interpreting GLENDA STRATTON MD | | | Physician Age | | | 89 year(s) 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 Procedure DateDate: 02/14/2020 Start: 03:12 | | | PM [facility] | | | visualization Indications:CONGESTIVE HEART FAILURE UNSPECIFIED 428.0/ | | | I50.9 and s/p TAVR(transcatheter aortic valve replacement), | | | bioprosthetic Z95.3/V42.2. Patient Status: Routine Height: 66 inches | | | Weight: 102 pounds BSA: 1.5 m^2 BMI: 16.46 kg/m^2 HR: 92 bpm | | | Conclusions Summary Left ventricle is normal in size and function. | | | There is mild concentric hypertrophy ejection fraction is estimated at | | | 65%. 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 No insufficiency is noted. Structurally | | | normal tricuspid valve with mild to moderate insufficiency and peak | | | velocity consistent with RVSP 41-46 mmHg. Left atrium is mildly | | | enlarged. Compared with patient's last echocardiogram, aortic valve | | | gradient is slightly higher. Otherwise no significant changes are | | | noted. Signature | | | | | | Electronically signed by GLENDA STRATTON MD (Interpreting physician) on | | | 02/14/2020 at 06:02 PM | | | | | | Structures Left Atrium LA Dimension: 3.63 cm | | | LA Area: 19.49 cm^2 LA/Aorta: 1.12 LA Volume/Index: 55.08 ml | | | /37m^2 Left Atrium Findings Left atrium is mildly enlarged. Left | | | Ventricle Diastolic Dimension: 3.75 cm Systolic | | | Dimension: 2.59 cm Septum Diastolic: 1.2 cm Septum | | | Systolic: 1.47 cm PW Diastolic: 1.09 cm PW | | | Systolic: 1.33 cm EF Estimated: 68% FS: | | | 30.9 % LV EDV/LV EDV Index: 56.3 ml/38 m^2 LV ESV/LV ESV Index: | | | 18.25 ml/12 m^2 EF Calculated: 68% LV | | | Length: 7.55 cm | | | CI: 4.35 l/min*m^2 CO: 6.53 l/min | | | IVRT: 103.8 msec LVOT Diameter: 1.88 cm Left Ventricle Findings Left | | | ventricle is normal in size and function. There is mild concentric | | | hypertrophy ejection fraction is estimated at 65%. Right Atrium | | | Right Atrium Findings Normal right atrial size. Right Ventricle | | | Right Ventricle Findings Normal right ventricular size. Right | | | ventricle global systolic function is normal. MiscellaneousAorta | | | Aortic Root: 3.25 cm LVOT Diameter: 1.88 cm Miscellaneous | | | FindingsAortic root is of normal size. Pericardium Pericardial | | | Effusion Findings No evidence of pericardial effusion. Pleura | | | Pleural Effusion Findings No evidence of pleural effusion. 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 Aortic Valve | | | Peak Velocity: 302.62 cm/s Mean Velocity: 225.4 cm/s | | | Peak Gradient: 36.63 mmHg Mean Gradient: 22.1 mmHg | | | Area (continuity): 1.2 cm^2 AV VTI: 59.27 cm Cusp Separation: 1.91 cm | | | Aortic Valve Findings Aortic valve is consistent with status post | | | TAVR, with peak velocity measured at 3 m/s and mean/peak gradients of | | | 22/36 mmHg. No insufficiency is noted. Tricuspid Valve TR Velocity: | | | 300.22 cm/s TR Gradient: 36.05 mmHg Tricuspid | | | Valve Findings Structurally normal tricuspid valve with mild to | | | moderate insufficiency and peak velocity consistent with RVSP 41-46 | | | mmHg. Pulmonic Valve Pulmonic Valve Findings Normal pulmonic valve | | | structure and function. Normal pulmonary valve and RVOT flow by color | | | and Doppler flow imaging. LVOT Peak Velocity: 121.86 cm/s | | | Mean Velocity: 96.06 cm/s Peak Gradient: 5.94 mmHg | | | Mean Gradient: 3.92 mmHg LVOT Diameter: 1.88 cm | | | LVOT VTI: 25.59 cm | | | Left Ventricle | | | | | | Diastolic Dimension: 3.75 cm Systolic Dimension: 2.59 cm | | | Septum Diastolic: 1.2 cm Septum Systolic: 1.47 cm | | | PW Diastolic: 1.09 cm PW Systolic: 1.33 cm | | | EF Estimated: 68% FS: 30.9 % | | | LV EDV/LV EDV Index: 56.3 ml/38 m^2 LV ESV/LV ESV Index: 18.25 ml/12 m^2 | | | EF Calculated: 68% LV Length: 7.55 cm | | | CI: 4.35 l/min*m^2 | | | CO: 6.53 l/min IVRT: 103.8 msec | | | LVOT Diameter: 1.88 cm | | | | | | Left Ventricle Findings | | | Left ventricle is normal in size and function. There is mild concentric | | | hypertrophy ejection fraction is estimated at 65%. | | | | | | Right Atrium | | | | | | Right Atrium Findings | | | Normal right atrial size. | | | | | | Right Ventricle | | | | | | Right Ventricle Findings | | | Normal right ventricular size. | | | Right ventricle global systolic function is normal. | | | | | |Miscellaneous | | |Aorta | | | | | | Aortic Root: 3.25 cm | | | LVOT Diameter: 1.88 cm | | | | | |Miscellaneous Findings | | |Aortic root is of normal size. | | | | | | Pericardium | | | | | | Pericardial Effusion Findings | | | No evidence of pericardial effusion. | | | | | | Pleura | | | | | | Pleural Effusion Findings | | | No evidence of pleural effusion. 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 | | | | | | Aortic Valve | | | | | | Peak Velocity: 302.62 cm/s Mean Velocity: 225.4 cm/s | | | Peak Gradient: 36.63 mmHg Mean Gradient: 22.1 mmHg | | | Area (continuity): 1.2 cm^2 | | | AV VTI: 59.27 cm | | | | | | Cusp Separation: 1.91 cm | | | | | | Aortic Valve Findings | | | Aortic valve is consistent with status post TAVR, with peak velocity | | | measured at 3 m/s and mean/peak gradients of 22/36 mmHg. No insufficiency | | | is noted. | | | | | | Tricuspid Valve | | | | | | TR Velocity: 300.22 cm/s TR Gradient: 36.05 mmHg | | | | | | Tricuspid Valve Findings | | | Structurally normal tricuspid valve with mild to moderate insufficiency | | | and peak velocity consistent with RVSP 41-46 mmHg. | | | | | | Pulmonic Valve | | | | | | Pulmonic Valve Findings | | | Normal pulmonic valve structure and function. Normal pulmonary valve and | | | RVOT flow by color and Doppler flow imaging. | | | | | | LVOT | | | | | | Peak Velocity: 121.86 cm/s Mean Velocity: 96.06 cm/s | | | Peak Gradient: 5.94 mmHg Mean Gradient: 3.92 mmHg | | | LVOT Diameter: 1.88 cm LVOT VTI: 25.59 cm | | | | | + + -+ + + | Procedure Note | + + | Kobe, Rad Results In - 02/14/2020 6:02 PM PDT Transthoracic Echocardiography Report | | (TTE) Demographics Patient Name CARLINE CHAMPAGNE Room Number 328 | | MAUREEN Patient Number [id number] Date of Study 02/14/2020 Visit | | Number [id number] Referring Physician DIMAS Coe Accession | | [id number] Derrick Hand RAJESH COREY Number Date of 1930 | | Interpreting GLENDA STRATTON MD | | Physician Age 89 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 There is mild | | concentric hypertrophy ejection fraction is estimated at 65%. Mitral valve is myxomatous | | and moderately thickened with mild insufficiency and mild stenosis. Aortic valve is | | consistent with status post TAVR, with peak velocity measured at 3 m/s and mean/peak | | gradients of 22/36 mmHg. No insufficiency is noted. Structurally normal tricuspid valve | | with mild to moderate insufficiency and peak velocity consistent with RVSP 41-46 mmHg. | | Left atrium is mildly enlarged. Compared with patient's last echocardiogram, aortic | | valve gradient is slightly higher. Otherwise no significant changes are noted. Signature | | | | Structures Left Atrium | | LA Dimension: 3.63 cm LA Area: 19.49 cm^2 LA/Aorta: 1.12 LA | | Volume/Index: 55.08 ml /37m^2 Left Atrium Findings Left atrium is mildly enlarged. Left | | Ventricle Diastolic Dimension: 3.75 cm Systolic Dimension: 2.59 cm Septum | | Diastolic: 1.2 cm Septum Systolic: 1.47 cm PW Diastolic: 1.09 cm | | PW Systolic: 1.33 cm EF Estimated: 68% FS: 30.9 % LV EDV/LV EDV | | Index: 56.3 ml/38 m^2 LV ESV/LV ESV Index: 18.25 ml/12 m^2 EF Calculated: 68% | | LV Length: 7.55 cm CI: 4.35 l/min*m^2 CO: | | 6.53 l/min IVRT: 103.8 msec LVOT Diameter: 1.88 cm Left Ventricle | | Findings Left ventricle is normal in size and function. There is mild concentric | | hypertrophy ejection fraction is estimated at 65%. Right Atrium Right Atrium Findings | | Normal right atrial size. Right Ventricle Right Ventricle Findings Normal right | | ventricular size. Right ventricle global systolic function is normal.MiscellaneousAorta | | Aortic Root: 3.25 cm LVOT Diameter: 1.88 cmMiscellaneous FindingsAortic root is of | | normal size. Pericardium Pericardial Effusion Findings No evidence of pericardial | | effusion. Pleura Pleural Effusion Findings No evidence of pleural effusion.Valves Mitral | | Valve Peak E-Wave: 113.37 cm/s Peak A-Wave: 182.77 cm/s P1/2t: 180.8 msec | | E/A Ratio: 0.62 Mean Velocity: 122.29 cm/s Peak Gradient: | | 18.64 mmHg Mean Gradient: 6.93 mmHg Deceleration Time: 623.4 msec Area | | (PHT): 1.22 cm^2 Area (continuity): 1.61 cm^2 Tissue Doppler E' Septal | | Velocity: 5 cm/s Mitral Valve Findings Mitral valve is myxomatous and moderately | | thickened with mild insufficiency and mild stenosis. Aortic Valve Peak Velocity: 302.62 | | cm/s Mean Velocity: 225.4 cm/s Peak Gradient: 36.63 mmHg Mean | | Gradient: 22.1 mmHg Area (continuity): 1.2 cm^2 AV VTI: 59.27 cm Cusp Separation: 1.91 | | cm Aortic Valve Findings Aortic valve is consistent with status post TAVR, with peak | | velocity measured at 3 m/s and mean/peak gradients of 22/36 mmHg. No insufficiency is | | noted. Tricuspid Valve TR Velocity: 300.22 cm/s TR Gradient: 36.05 mmHg | | Tricuspid Valve Findings Structurally normal tricuspid valve with mild to moderate | | insufficiency and peak velocity consistent with RVSP 41-46 mmHg. Pulmonic Valve Pulmonic | | Valve Findings Normal pulmonic valve structure and function. Normal pulmonary valve and | | RVOT flow by color and Doppler flow imaging. LVOT Peak Velocity: 121.86 cm/s | | Mean Velocity: 96.06 cm/s Peak Gradient: 5.94 mmHg Mean Gradient: 3.92 | | mmHg LVOT Diameter: 1.88 cm LVOT VTI: 25.59 cm | | Compared with patient's last echocardiogram, aortic valve gradient is | | slightly higher. Otherwise no significant changes are noted. | | | | Signature | | | | | | | | | | | |Structures | | | | Left Atrium | | | | LA Dimension: 3.63 cm LA Area: 19.49 cm^2 | | LA/Aorta: 1.12 | | LA Volume/Index: 55.08 ml /37m^2 | | | | Left Atrium Findings | | Left atrium is mildly enlarged. | | | | Left Ventricle | | | | Diastolic Dimension: 3.75 cm Systolic Dimension: 2.59 cm | | Septum Diastolic: 1.2 cm Septum Systolic: 1.47 cm | | PW Diastolic: 1.09 cm PW Systolic: 1.33 cm | | EF Estimated: 68% FS: 30.9 % | | LV EDV/LV EDV Index: 56.3 ml/38 m^2 LV ESV/LV ESV Index: 18.25 ml/12 m^2 | | EF Calculated: 68% LV Length: 7.55 cm | | CI: 4.35 l/min*m^2 | | CO: 6.53 l/min IVRT: 103.8 msec | | LVOT Diameter: 1.88 cm | | | | Left Ventricle Findings | | Left ventricle is normal in size and function. There is mild concentric | | hypertrophy ejection fraction is estimated at 65%. | | | | Right Atrium | | | | Right Atrium Findings | | Normal right atrial size. | | | | Right Ventricle | | | | Right Ventricle Findings | | Normal right ventricular size. | | Right ventricle global systolic function is normal. | | | |Miscellaneous | |Aorta | | | | Aortic Root: 3.25 cm | | LVOT Diameter: 1.88 cm | | | |Miscellaneous Findings | |Aortic root is of normal size. | | | | Pericardium | | | | Pericardial Effusion Findings | | No evidence of pericardial effusion. | | | | Pleura | | | | Pleural Effusion Findings | | No evidence of pleural effusion. 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 | | | | Aortic Valve | | | | Peak Velocity: 302.62 cm/s Mean Velocity: 225.4 cm/s | | Peak Gradient: 36.63 mmHg Mean Gradient: 22.1 mmHg | | Area (continuity): 1.2 cm^2 | | AV VTI: 59.27 cm | | | | Cusp Separation: 1.91 cm | | | | Aortic Valve Findings | | Aortic valve is consistent with status post TAVR, with peak velocity | | measured at 3 m/s and mean/peak gradients of 22/36 mmHg. No insufficiency | | is noted. | | | | Tricuspid Valve | | | | TR Velocity: 300.22 cm/s TR Gradient: 36.05 mmHg | | | | Tricuspid Valve Findings | | Structurally normal tricuspid valve with mild to moderate insufficiency | | and peak velocity consistent with RVSP 41-46 mmHg. | | | | Pulmonic Valve | | | | Pulmonic Valve Findings | | Normal pulmonic valve structure and function. Normal pulmonary valve and | | RVOT flow by color and Doppler flow imaging. | | | | LVOT | | | | Peak Velocity: 121.86 cm/s Mean Velocity: 96.06 cm/s | | Peak Gradient: 5.94 mmHg Mean Gradient: 3.92 mmHg | | LVOT Diameter: 1.88 cm LVOT VTI: 25.59 cm | + + + +---------+ + + | Performing | Address | City/State/Zipcode | Phone Number | | Organization | | | | + +---------+ + + | [facility] | | | | + +---------+ + + CT Chest wo Contrast (02/09/2020 11:01 PM PDT) + + | Specimen | + + | | + + + + + | Impressions | Performed At | + + + | 1. VERY SMALL BUT SLIGHTLY LARGER PERICARDIAL EFFUSION, AND | [facility] | | SLIGHTLY LARGER RIGHT AND NEW LEFT PLEURAL EFFUSIONS COMPARED WITH | | | IMAGING OF JANUARY 30 WITH PROBABLE DEPENDENT BASILAR ATELECTASIS. | | | 2. IMPROVED GROUND GLASS NODULARITY IN THE LEFT LOWER LOBE AND | | | OTHERWISE SIMILAR LARGELY CLUSTERED NODULARITY ELSEWHERE IN BOTH | | | LUNGS, AGAIN FAVORING SMALL AIRWAY CENTERED INFECTION OR | | | INFLAMMATION. BRONCHIAL WALL THICKENING IS AGAIN EVIDENT WITHOUT | | | CENTRAL AIRWAY OCCLUSION. 3. 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 4. CHRONIC BILIARY DUCTAL DILATION. | | | Preliminary results of this study were reported [facility] the ER staff [facility] | [facility] on February 09, 2020 at 2329 hours. | | | Dictated and Signed by: Sivakumar Ramon MD Electronically signed: | | | 02/10/2020 9:02 AM | | + + + + + + | Narrative | Performed At | + + + | UNENHANCED CHEST CT 02/09/2020 11:00 PM CLINICAL HISTORY: Cough | [facility] | | COMPARISON: Radiography February 04, CT January 23, 2017 and more | | | remote imaging TECHNIQUE: Axial unenhanced images are performed | | | through the chest, along with multiplanar reformations. FINDINGS: | | | There is similar dilation of the ascending aorta to a diameter of | | | approximately 4 cm. Calcified plaque is again evident in the aorta, | | | proximal great vessels and coronary arteries. An aortic valve | | | prosthesis is again evident. Enlargement of the main pulmonary | | | artery up to a diameter of 3.5 cm persists. A very small volume of | | | pericardial fluid is slightly increased. No pathologic lymph node | | | enlargement is evident. Very small dependent low attenuation right | | | pleural effusion is larger and there is a new trace dependent left | | | pleural effusion compared with imaging of January 30. There is no | | | pneumothorax. Previously described small region of ground glass | | | nodularity in the posterior left upper lobe is similar to previous, | | | measuring 7 mm on image 65. A 10 mm nodular focus in the posterior | | | right apex is stable on image 18. Ground glass nodularity in the | | | posterior superior left lower lobe has resolved in the interim. | | | There is similar localized ground glass opacity medially in the left | | | upper lobe. Tiny ill-defined clustered nodules elsewhere within | | | both lungs are similar in extent and distribution, allowing for | | | respiratory motion. Mild, generalized bronchial wall thickening is | | | suggested, without central airway occlusion. Dependent density and | | | bandlike opacity in the posterior costophrenic sulci favors | | | atelectasis. Osteopenia is again suggested. There is severe | | | degeneration of the glenohumeral and sternoclavicular joints. | | | Healed bilateral rib fractures are again demonstrated. No recent | | | fracture is evident. S-shaped thoracic curvature and extensive | | | vertebral spondylosis are again apparent. The gallbladder is | | | surgically absent and there is similar prominent dilation of the | | | imaged biliary tree. High-density material in the imaged colon | | | likely reflects previously ingested medication. | | + + + + + | Procedure Note | + + | Kobe, Rad Results In - 02/10/2020 9:05 AM PDT UNENHANCED CHEST CT 02/09/2020 11:00 PM | | | | CLINICAL HISTORY: Cough | | | | COMPARISON: Radiography February 04, CT January 23, 2017 and more remote imaging | | | | TECHNIQUE: Axial unenhanced images are performed through the chest, along with | | multiplanar reformations. | | | | FINDINGS: There is similar dilation of the ascending aorta to a diameter of | | approximately 4 cm. Calcified plaque is again evident in the aorta, proximal | | great vessels and coronary arteries. An aortic valve prosthesis is again | | evident. Enlargement of the main pulmonary artery up to a diameter of 3.5 cm | | persists. A very small volume of pericardial fluid is slightly increased. No | | pathologic lymph node enlargement is evident. Very small dependent low | | attenuation right pleural effusion is larger and there is a new trace dependent | | left pleural effusion compared with imaging of January 30. There is no | | pneumothorax. | | | | Previously described small region of ground glass nodularity in the posterior | | left upper lobe is similar to previous, measuring 7 mm on image 65. A 10 mm | | nodular focus in the posterior right apex is stable on image 18. Ground glass | | nodularity in the posterior superior left lower lobe has resolved in the | | interim. There is similar localized ground glass opacity medially in the left | | upper lobe. Tiny ill-defined clustered nodules elsewhere within both lungs are | | similar in extent and distribution, allowing for respiratory motion. Mild, | | generalized bronchial wall thickening is suggested, without central airway | | occlusion. Dependent density and bandlike opacity in the posterior costophrenic | | sulci favors atelectasis. | | | | Osteopenia is again suggested. There is severe degeneration of the glenohumeral | | and sternoclavicular joints. Healed bilateral rib fractures are again | | demonstrated. No recent fracture is evident. S-shaped thoracic curvature and | | extensive vertebral spondylosis are again apparent. The gallbladder is | | surgically absent and there is similar prominent dilation of the imaged biliary | | tree. High-density material in the imaged colon likely reflects previously | | ingested medication. | | | | IMPRESSION: | | 1. VERY SMALL BUT SLIGHTLY LARGER PERICARDIAL EFFUSION, AND SLIGHTLY LARGER | | RIGHT AND NEW LEFT PLEURAL EFFUSIONS COMPARED WITH IMAGING OF JANUARY 30 WITH | | PROBABLE DEPENDENT BASILAR ATELECTASIS. | | | | 2. IMPROVED GROUND GLASS NODULARITY IN THE LEFT LOWER LOBE AND OTHERWISE | | SIMILAR LARGELY CLUSTERED NODULARITY ELSEWHERE IN BOTH LUNGS, AGAIN FAVORING | | SMALL AIRWAY CENTERED INFECTION OR INFLAMMATION. BRONCHIAL WALL THICKENING IS | | AGAIN EVIDENT WITHOUT CENTRAL AIRWAY OCCLUSION. | | | | 3. VASCULAR CALCIFICATION WITH SIMILAR DILATION OF THE ASCENDING AORTA TO A | | DIAMETER OF 4 CM AND CHRONIC ENLARGEMENT OF THE MAIN PULMONARY ARTERY, | | SUGGESTING PULMONARY ARTERIAL HYPERTENSION. | | | | 4. CHRONIC BILIARY DUCTAL DILATION. | | | | Preliminary results of this study were [facility] | [facility] radiologist on February 09, 2020 at 2329 hours. | | | | Dictated and Signed by: Sivakumar Ramon MD | | Electronically signed: 02/10/2020 9:02 AM | + + + +---------+ + + | Performing | Address | City/State/Zipcode | Phone Number | | Organization | | | | + +---------+ + + | [facility] | | | | + +---------+ + + POCT Occ Bld Stl not Colorectal Neoplasm (02/09/2020 10:18 PM PDT) + + + + + + | Component | Value | Ref Range | Performed | Pathologist | | | | | At | Signature | + + + + + + | Occult | Positive (A) | Negative | | | | Blood x1, | | | | | | Stool, POC | | | | | + + + + + + | Occult | | | | | | Blood x2, | | | | | | Stool, POC | | | | | + + + + + + | Occult | | | | | | Blood x3, | | | | | | Stool, POC | | | | | + + + + + + | Occult | Acceptable | | | | | Blood QC | | | | | | Result | | | | | + + + + + + | Card Lot # | [id number] | | | | + + + + + + | Card | 06/26 | | | | | Expiration | | | | | | Date | | | | | + + + + + + | Developer | | | | | | Lot # | | | | | + + + + + + | Developer | | | | | | Expiration | | | | | | Date | | | | | + + + + + + + + | Specimen | + + | Stool | + + PTT (02/09/2020 10:17 PM PDT) + +-------+ + + + | Component | Value | Ref Range | Performed | Pathologist | | | | | At | Signature | + +-------+ + + + | aPTT | 26 | 22 - 36 seconds | [facility] | | | | | [...] | [address] | [place] | [phone] | | [facility] | | [address] | | | - LABORATORY | | | | + + + + + Sodium (02/06/2020 11:56 AM PDT)Only the most recent of 4 results within the time period is included. + +-------+ + + + | Component [...] + | [facility] | [address] | [place] | [phone] | | [facility] | | [address] | | | - LABORATORY | | [...] | | Trough | | ug/mL | [facility] | | | | [...] | [address] | [place] | [phone] | | [facility] | | [address] | | | - LABORATORY | | | | + + + + + Folate (02/05/2020 10:24 AM PDT) + +-------+ + + + | Component | Value | Ref Range | Performed | Pathologist | | | | | At | Signature | + +-------+ + + + | FOLATE | 8.8 | >5.4 ng/mL | [facility] | | | | [...] [address] | [place] | [phone] | | [facility] | | [address] | | | - LABORATORY | | [...] [address] | [place] | [phone] | | [facility] | | [address] | | | - LABORATORY | | | | + + + + + Ferritin (02/05/2020 6:28 AM PDT) + +-------+ + + + | Component | Value | Ref Range | Performed | Pathologist | | | | | At | Signature | + +-------+ + + + | FERRITIN | 186 | 7 - 271 ng/mL | [facility] | | | | [...] | + + + + + | [address] | 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 | | | |Dictated and Signed by: Patrick Rodriguez MD | | Electronically signed: 02/03/2020 10:50 AM | + + + +---------+ + + | Performing | Address | City/State/Zipcode | Phone Number | | Organization | | | | + +---------+ + + | [facility] | | | | + +---------+ + + [place] Video Swallow w Speech [...] | | | + +---------+ + + Urinalysis, Reflex Microscopic and/or Culture [...] - 1.030 | [facility] | | | [place], | | | [facility] | | [...] | | Urine | | | [facility] | | [...] | Urine Culture Set Up | | [facility] | | | Comment | | | [facility] | | [...] [address] | [place] | [phone] | | [facility] | | [address] | | | - LABORATORY | | [...] | | | | albicans | | [facility] | | | [...] | + + + + + | [address] | [address] | [place], [place] | [phone] | | [facility] | | [address] | | | - LABORATORY | | [...] difficile, | Toxigenic C. difficile | | [facility] | | | Interp | detected. Consider [...] [address] | [place] | [phone] | | [facility] | | [address] | | | - LABORATORY | | [...] [address] | [place] | [phone] | | [facility] | | [address] | | | - LABORATORY | | [...] | PCR | | not performed | [facility] | | | | | [facility] | | | | | | C[facility] - | | | | | | LABORATORY | | + + + + + + | Influenza B | Negative | Negative, Test | [facility] | | | PCR | | not performed | [facility] | | | | | [...] + | [facility] | [address] | [place], [place] | [phone] | | [facility] | | [address] | | | - LABORATORY | | [...] Detected | [facility] | | | [address] | | | [facility] | | | | | | MEDICAL | | | | | | CENTER - | | | | | | LABORATORY | | + + + + + + | Adenovirus | Not Detected | Not Detected | [facility] | | | | | [...] [address] | [place] | [phone] | | [facility] | | [address] | | | - LABORATORY | | [...] | [address] | [place] | [phone] | | [facility] | | [address] | | | - LABORATORY | | | | + + + + + CT Chest Abdomen Pelvis w [...] | | | | LEONIDAS CALVO MD ([id number]) | | | | | | on [...] | | | + +---------+ + + from Last 3 Months Additional Health Concerns + + + + | Infection | Noted Time | Resolved Time | + + + + | Methicillin-resistant Staphylococcus aureus | 06/08/2019 9:39 AM | | | | PDT | | + + + + Insurance + +--------+ +--------+ +---------+--------+ | Payer | Benefi | Subscriber | Effect | Phone | Address | Type | | | t Plan | ID | shemar | | | | | | / | | Dates | | | | | | Group | | | | | | + +--------+ +--------+ +---------+--------+ | [employer] | MOD[employer] | [id number] | 06/06/20 | | | Medica | | | HEALTH | | 19-Pre | | | re | | | MDCR | | sent | | | | + +--------+ +--------+ +---------+--------+ | [employer] | [employer] | [id number] | 06/06/20 | [phone] | | Medica | | MEDICAID HMO | HEALTH | | 19-Pre | 1 | | id | | | MDCD | | sent | | | | | | HMO [place] | | | | | | + +--------+ +--------+ +---------+--------+ + +--------+ +--------+ + + | Guarantor Name | Accoun | Relation to | Date | Phone | Billing Address | | | t Type | Patient | of | | | | | | | | | | + +--------+ +--------+ + + | Ángela Crowley | Person | Self | [birth year] | [address] | | | al/Fam | | 1930 | [phone] | [place] | | | [place] | | | [address] (Home) | [address] | + +--------+ +--------+ + + Advance Directives + + + + + | Type | Date Recorded | Patient | Explanation | | | | Newscast Director | | + + + + + | Power of | 02/10/2020 1:44 | | | | | PM | | | + + + + + | Advance | 09/09/2019 6:33 | | | | Directive | AM | | | + + + + + + + + + + | Code Status | Date | Date | Comments | | | Activated | Inactivated | | + + + + + | Full Code | 02/27/2020 | 03/02/2020 | | | | 6:28 PM | 5:33 PM | | + + + + + + + + +---+ | | | | | + + + +---+ | Full Code | 02/10/2020 | 02/24/2020 | | | | 2:20 AM | 4:41 PM | | + + + +---+ + + +---+ | Orders discussed with: | Patient | | | | Newscast Director | | + + +---+ + + + +---+ | | | | | + + + +---+ | Full Code | 01/31/2020 | 02/09/2020 | | | | 7:49 PM | 3:53 PM | | + + + +---+ + + + +---+ | | | | | + + + +---+ | Full Code | 12/01/2019 | 12/10/2019 | | | | 3:57 PM | 2:55 PM | | + + + +---+ + + + +---+ | | | | | + + + +---+ | Full Code | 11/18/2019 | 11/24/2019 | | | | 4:40 AM | 2:04 PM | | + + + +---+ + + +---+ | Orders discussed with: | Patient | | | | Newscast Director | | + + +---+
--- OUTSIDE RECORDS SUMMARY | ~2020-03-14 | XMS | Encounter Summary ---
Demographics + + + | Address | [address] | | | [place] [address] | + + + | Home Phone | | + + + | Preferred Language | Unknown | + + + | Marital Status | | + + + | Church Affiliation | Unknown | + + + | Race | Unknown | + + + | Ethnic Group | Unknown | + + + Author + + + | Author | [facility] | | | and [place] | + + + | Organization | [facility] | | | and [...] Team Providers + +------+ + | Care Lot Porter Name | Role | Phone | + [...] | +--------+ + + + + | 09/16/ | Home Care | [facility] | Timothy, | CASE COMMUNICATION | | 2019 | Visit | [place] [address] | Tania Garcia [facility] | | | | | [place] | | | | | | [address] | | | | | | [phone] | | | +--------+ + + + [...] | 2019 | Visit | | [address] | | | | | | [place] | | | | | | [id number] | | | | | | | | +--------+ + + + + | 04/11/ | Appointment | Radiology | Shawn Michael | | | 2019 | | | MD Marcelino [address] | | | | | | [address] | | | | | | [place] [address] | | | | | | [phone] | | | | | | | | +--------+ + + + + | 04/13/ | Office | Cardiology | Shawn Michael | | | 2020 | Visit | | MD Marcelino [address] | | | | | | [address] | | | | | | [place] [address] | | | | | | [phone] | | | | | | | [...]
--- OUTSIDE RECORDS SUMMARY | ~2020-03-14 | XMS | Encounter Summary ---
Demographics + + + | Address | [address] | | | [place] [address] | + + + | Home Phone | | + + + | Preferred Language | Unknown | + + + | Marital Status | | + + + | Taoism Affiliation | Unknown | + + + | Race | Unknown | + + + | Ethnic Group | Unknown | + + + Author + + + | Author | [facility] | | | and [place] | + + + | Organization | [facility] | | | [...] Team Providers + +------+ + | Care Ocean Freight Forwarder Name | Role | Phone | + [...] | +--------+ + + + + | 09/23/ | Home Care | [facility] | Wanda Barbosa, | CASE COMMUNICATION | | 2019 | Visit | [place] [address] | [place] | | | | | [place] | | | | | | [address] | | | | | | [phone] | | | +--------+ + + + [...] | | | | | [place] [address] | | | | | | [phone] | | | | | | | | +--------+ + + + + | 04/13/ | Office | Cardiology | Shawn Michael | | | 2019 | Visit | | MD Marcelino [address] | | | | | | [address] | | | | | | [place] [address] | | | | | | [phone] | | | | | | | [...]
--- OUTSIDE RECORDS SUMMARY | ~2020-03-14 | XMS | Encounter Summary ---
Demographics + + + | Address | [address] | | | [place] [address] | + + + | Home Phone | | + + + | Preferred Language | Unknown | + + + | Marital Status | | + + + | Scientologist Affiliation | Unknown | + + + | Race | Unknown | + + + | Ethnic Group | Unknown | + + + Author + + + | Author | [facility] | | | and [place] | + + + | Organization | [facility] | | | [...] Team Providers + +------+ + | Care Deputy Chief Magistrate Name | Role | Phone | + [...] + | 01/23/ | Home Care | [facility] | Emily Reynolds, PT | CASE COMMUNICATION | | 2020 | Visit | [place] [address] | | | | | | [place] | | | | | | [address] | | | | | | [phone] | | | +--------+ + + + [...] | | | | | [place] [address] | | | | | | [phone] | | | | | | | | +--------+ + + + + | 04/13/ | Office | Cardiology | Shawn Michael | | 2019 | Visit | | MD Marcelino [address] | | | | | | [address] | | | | | | [place] [address] | | | | | | [phone] | | | | | | | [...]
--- OUTSIDE RECORDS SUMMARY | ~2020-03-14 | XMS | Encounter Summary ---
Demographics + + + | Address | [address] | | | [place] [address] | + + + | Home Phone | | + + + | Preferred Language | Unknown | + + + | Marital Status | | + + + | Temple Affiliation | Unknown | + + + | Race | Unknown | + + + | Ethnic Group | Unknown | + + + Author + + + | Author | [facility] | | | and [place] | + + + | Organization | [facility] | | [...] Team Providers + +------+ + | Care Rotary Furnace Tender Name | Role | Phone | + +------+ + | Cadnido Link | PCP | | | MD [...] | +--------+ + + + + | 10/12/ | Home Care | [facility] | Bernardo Souza | CASE COMMUNICATION | | 2020 | Visit | [place] [address] | D[address] Schul[address] | | | | | [place] | | | | | | [address] | | | | | | [phone] | | | +--------+ + + + [...] | | | | | [place] [address] | | | | | | [phone] | | | | | | | | +--------+ + + + + | 04/13/ | Office | Cardiology | Shawn Michael | | | 2019 | Visit | | MD Marcelino [address] | | | | | | [address] | | | | | | [place] [address] | | | | | | [phone] | | | | | | | [...]
--- OUTSIDE RECORDS SUMMARY | ~2020-03-14 | XMS | Encounter Summary ---
Demographics + + + | Address | [address] | | | [place] [address] | + + + | Home Phone | | + + + | Preferred Language | Unknown | + + + | Marital Status | | + + + | Faith Affiliation | Unknown | + + + | Race | Unknown | + + + | Ethnic Group | Unknown | + + + Author + + + | Author | [facility] | | | and [place] | + + + | Organization | [facility] | | | and [...] Team Providers + +------+ + | Care Cash Analyst Name | Role | Phone | + [...] Description | +--------+--------+ + + + | 06/22/ | Refill | [facility] | Nikolay, | Medication Refill | | 2019 | | MEDICINE [address] | MD Candido | | | | | [facility] | [address] [place] [address] | | | | | [place] [address] | [place] [address] | | | | | [phone] | [phone] | | | | | | | [...] | | 2019 | Visit | | BANQUET SERVER ON CALL [address] | | | | | | [place] | | | | | | [address] | | | | | | | | +--------+ + + + + | 04/11/ | Appointment | Radiology | Shawn Michael | | | 2019 | | | MD [address] | | | | | | [address] [place] | | | | | | [place] [address] | | | | | | [phone] | | | | | | | | +--------+ + + + + | 04/13/ | Office | Cardiology | Shawn Michael | | | 2019 | Visit | | MD [address] | | | | | | [address] [place] | | | | | | [place] [address] | | | | | | [phone] | | | | | | | [...]
--- OUTSIDE RECORDS SUMMARY | ~2020-03-14 | XMS | Encounter Summary ---
Demographics + + + | Address | [address] | | | [place] [address] | + + + | Home Phone | | + + + | Preferred Language | Unknown | + + + | Marital Status | | + + + | Pentecostal Affiliation | Unknown | + + + | Race | Unknown | + + + | Ethnic Group | Unknown | + + + Author + + + | Author | [facility] | | | and [place] | + + + | Organization | [facility] | | | [...] Team Providers + +------+ + | Care Outpatient Phlebotomist Name | Role | Phone | + [...] | +--------+ + + + + | 08/30/ | Home Care | [facility] | Bernardo Souza | TELEPHONE ENCOUNTER | | 2018 | Visit | [place] [address] | [address] | | | | | [place] | | | | | | [address] | | | | | | [phone] | | | +--------+ + + + [...] | | | | | [place] [address] | | | | | | [phone] | | | | | | | | +--------+ + + + + | 04/13/ | Office | Cardiology | Shawn Michael | | | 2020 | Visit | | MD Marcelino [address] | | | | | | [address] [place] | | | | | | [place] [address] | | | | | | [phone] | | | | | | | [...]
--- OUTSIDE RECORDS SUMMARY | ~2020-03-14 | XMS | Encounter Summary ---
Demographics + + + | Address | [address] | | | [place] [address] | + + + | Home Phone | | + + + | Preferred Language | Unknown | + + + | Marital Status | | + + + | Confucianist Affiliation | Unknown | + + + | Race | Unknown | + + + | Ethnic Group | Unknown | + + + Author + + + | Author | [facility] | | | and [place] | + + + | Organization | [facility] | | | and [...] Team Providers + +------+ + | Care Promotions Intern Name | Role | Phone | + [...] | +--------+ + + + + | 10/18/ | Home Care | [facility] | Timothy, | HH AIDE REPEAT VISIT | | 2019 | Visit | [place] [address] | Tania Garcia [facility]NA | | | | | [place] | | | | | | [address] | | | | | | [phone] | | | +--------+ + + + [...] | | | | | [place] [address] | | | | | | [phone] | | | | | | | | +--------+ + + + + | 04/13/ | Office | Cardiology | Shawn Michael | | | 2019 | Visit | | MD Marcelino [address] | | | | | | [address] | | | | | | [place] [address] | | | | | | [phone] | | | | | | | [...] Plan + + | Visit Type - DECAL MAKER - REPEAT VISIT | | Discipline - Home Health Aide | + + + + +--------+--------+ + + | Problem | Description | Start | Status | Goals | Interventio | | | | Date | | | ns | + + +--------+--------+ + + | HH Aide Need | DECAL MAKER services | | | 1 goal | 3 goal | | Disciplines: | needed | | Active | linked to | interventio | | Mcfp, | | 019 | | scheduled/d | ns | | Home Health Aide | | | | ocumented | scheduled/d [...] | | + + +--------+-------+ + | Home Health Aide | HH Aide Need | | No | | | personal care, | | | | | | living environment | | | | | | and ADLs | | | | | | Description: The | | | | | | patient will receive | | | | | | comfortable | | | | | | personal care. The | | | | | | patient will have a | | | | | | safe and clean | | | | | | living environment. | | | | | | The patient will be | | | | | | able to perform | | | | | | personal care/ADLs | | | | | | independently or | | | | | | caregiver will be | | | | | | able to assist with | | | | | | personal care/ADLs. | | | | | + + +--------+-------+ + + + +--------+--------+ + | Intervention | Associated | Status | Varian | Visit Notes | | | Problem/Goal | | ce | | + + +--------+--------+ + | Aide personal care | Problem: HH Aide | | | Completed the | | Description: | NeedGoal: Home | Comple | | following personal care | | Assist patient with | Health Aide personal | [place] | | pre the plan of care: | | personal care: | care, living | | | | | sponge bath or | environment and ADLs | | | | | shower: Per patient | | | | | | request shampoo: | | | | | | PRN, gentle washing | | | | | | due to recent head | | | | | | laceration and | | | | | | hematoma from fall | | | | | | on 09/09/19 oral | | | | | | hygiene: PRN stand | | | | | | by brush/comb hair | | | | | | | | | | | + + +--------+--------+ + | HH aide assist | Problem: HH Aide | | | The following | | with cleanliness of | NeedGoal: Home | Comple | | assistance with | | care area | Health Aide personal | [place] | | maintaining cleanliness | | Description: | care, living | | | of immediate care area | | Assist in | environment and ADLs | | | completed per plan of | | maintaining | | | | care: | | cleanliness of | | | | | | immediate care area: | | | | | | clean patient care | | | | | | area | | | | | + + +--------+--------+ + | HH aide special | Problem: HH Aide | | | Completed/addressed | | instructions | NeedGoal: Home | Comple | | the following special | | Description: | Health Aide personal | yoel | | instructions per plan of | | Special | care, living | | | care | | instructions: cover | environment and ADLs | | | | | LLE wound dressing | | | | | | with plastic to | | | | | | protect in shower | | | | | + + +--------+--------+ + documented in this encounter"
--- OUTSIDE RECORDS SUMMARY | ~2020-03-14 | XMS | Encounter Summary ---
Demographics + + + | Address | [address] | | | [place] [address] | + + + | Home Phone | | + + + | Preferred Language | Unknown | + + + | Marital Status | | + + + | Catholic Affiliation | Unknown | + + + | Race | Unknown | + + + | Ethnic Group | Unknown | + + + Author + + + | Author | [facility] | | | and [place] | + + + | Organization | [facility] | | | and [place] | + + + | Address | Unknown | + + + | Phone | Unavailable | + + + Support + + +---------+ + | Name | Relationship | Address | Phone | + + +---------+ + | Yaidel Argueta | ECON | Unknown | | + + +---------+ + | Pee Perrin | ECON | Unknown | | + + +---------+ + | Layla Argueta | ECON | Unknown | | + + +---------+ + Care Team Providers + +------+ + | Care Industrial Education Instructor Name | Role | Phone | + +------+ + | Candido Link | PCP | | | MD | | | + +------+ + Reason for Referral Home Health Care (Routine) + + + + + + + | Status | Reason | Specialty | Diagnoses / | Referred By | Referred To | | | | | Procedures | Contact | Contact | + + + + + + + | Pending | Specialty | Home Health | Diagnoses | Kalen, | Prov Hh | | Review | Services | Services | COPD | Chace | Jber | | | Required | | exacerbation | MD Pati | [address] | | | | | ([facility]) | [address] | [place] | | | | | Acute on | [place] | [place], [place] | | | | | chronic | [place] | [address] | | | | | heart | [address] | Phone: | | | | | failure, | Phone: | [phone] | | | | | unspecified | [phone] | Fax: | | | | | heart | Fax: | [phone] | | | | | failure type | [phone] | | | | | | (FORM[facility]LY [facility]) | | | | | | | Procedures | | | | | | | 11/25/19 SN | | | | | | | PT PSYCHIATRIC AIDE RT | | | + + + + + + + Reason for Visit + + + | Reason | Comments | + + + | Shortness of Breath | | + + + Auth/Cert +--------+--------+ + + + + | Status | Reason | Specialty | Diagnoses / | Referred By | Referred To | | | | | Procedures | Contact | Contact | +--------+--------+ + + + + | | | | Diagnoses | | | | | | | Influenza A | | | | | | | COPD | | | | | | | exacerbation | | | | | | | ([facility]) | | | | | | | Coronary | | | | | | | artery | | | | | | | disease | | | | | | | involving | | | | | | | coquille | | | | | | | coronary | | | | | | | artery of | | | | | | | coquille heart | | | | | | | without | | | | | | | angina | | | | | | | pectoris | | | | | | | Chest pain, | | | | | | | unspecified | | | | | | | type | | | +--------+--------+ + + + + Encounter Details +--------+ + + + + | Date | Type | Department | Care Team | Description | +--------+ + + + + | 11/18/ | Hospital | [facility] | Medardo Platt, | Chest pain, | | 2019 - | Encounter | [facility] | [address] | unspecified type | | | | [address] [place] | [facility] [place] | (Primary Dx); COPD | | 11/24/ | | [place] [address] | [place] [address] | exacerbation (HCC); | | 2019 | | [phone] | [phone] | Influenza A; | | | | | | Coronary artery | | | | | Anna Jade MD | disease involving | | | | | [address] | coquille coronary | | | | | [place] | artery of coquille | | | | | [phone] | heart without angina | | | | | | pectoris; Acute on | | | | | | chronic heart | | | | | | failure, unspecified | | | | | | heart failure type | | | | | | (HCC); Acute on | | | | | | chronic diastolic | | | | | | heart failure (HCC) | +--------+ + + + + Social [...] + + + | Blood Pressure | 192/92 | 11/24/2019 7:54 AM | | | | | PST | | + + + + + | Pulse | 98 | 11/24/2019 9:32 AM | | | | | PST | | + + + + + | Temperature | 36.8 C (98.2 F) | 11/24/2019 2:58 AM | | | | | PST | | + + + + + | Respiratory Rate | 20 | 11/24/2019 9:32 AM | | | | | PST | | + + + + + | Oxygen Saturation | 97% | 11/24/2019 9:32 AM | | | | | PST | | + + + + + | Inhaled Oxygen | - | - | | | Concentration | | | | + + + + + | Weight | 55.1 kg (121 lb 7.6 | 11/23/2019 5:13 AM | | | | oz) | PST | | + + + + + | Height | 157.5 cm (5' 2") | 11/18/2019 4:40 AM | | | | | PST | | + + + + + | Body Mass Index | 22.22 | 11/18/2019 4:40 AM | | | | | PST | | + + + + + documented in this encounter Discharge Summaries Chace Higuera MD - 11/24/2019 11:41 AM PSTFormatting of this note might be differen t from the original. [facility] HOSPITALIST DISCHARGE SUMMARY Pt. Name/Age/: Ángela Crowley 89 y.o. 1930 Date of Admission: 11/18/2019 Date of Discharge: 11/24/2019 Admitting Physician: Anna Jade MD Primary Care Provider: Candido Link MD Discharging Physician: Chace Higuera MD DISCHARGE DIAGNOSES: Active Hospital Problems Diagnosis Influenza A COPD exacerbation Resolved Hospital Problems No resolved problems to display. DISCHARGE MEDICATIONS: Discharge Medications New Medications Details amoxicillin-clavulanate 875-125 mg per tablet Take 1 tablet by mouth 2 times daily for 7 doses. Indications: UTI - Lower aka: AUGMENTIN Changed Medications Details furosemide 20 mg tablet Take 1 tablet by mouth 2 times daily. What changed: when to take this aka: LASIX HYDROcodone-acetaminophen 7.5-325 mg per tablet Take 1 tablet by mouth every 6 hours as needed for Pain. What changed: Another medication with the same name was removed. Continue taking this medi cation, and follow the directions you see here. aka: NORCO predniSONE 10 mg tablet Take 4 tablets by mouth Daily. Take 4 tablets (40mg) on 11/25/19. Followed by 2 tablets (20 mg) for 4 days 11/26, 11/27, 11/28, and 11/29. Followed by 1 tablet (10mg) maintenance indefinit bel What changed: how much to take additional instructions aka: DELTASONE Start: November 25, 2019 Unchanged Medications Details acetaminophen 325 mg tablet Take 2 tablets by mouth every 6 hours as needed for Pain (or fever >= 38.6 C (101.5 F)). aka: TYLENOL aspirin 81 mg chewable tablet Notes to patient: For heart health Take 1 tablet by mouth Daily. atorvaSTATin 20 mg tablet Notes to patient: For cholesterol Take 1 tablet by mouth every morning. aka: LIPITOR bacitracin 500 UNIT/GM ointment Apply 1 Application topically 2 times daily. To bedsore on buttocks bisacodyl 5 mg EC tablet Notes to patient: To help prevent constipation Take 5 mg by mouth Daily. aka: DULCOLAX brimonidine 0.2% ophthalmic solution Notes to patient: For glaucoma Place 1 drop into both eyes 2 times daily. aka: ALPHAGAN budesonide 0.5 mg/2 mL nebulizer solution Notes to patient: To help prevent breathing problems Take 2 mLs by nebulization 2 times daily. Dx Code J44.90 aka: PULMICORT carvedilol 6.25 mg tablet Notes to patient: For heart and blood pressure Take 6.25 mg by mouth 2 times daily (with breakfast & dinner). aka: COREG cholecalciferol 25 mcg (1,000 units) tablet Take 1,000 Units by mouth Daily. aka: VITAMIN D-3 Cranberry 600 MG Tabs Take 1 tablet by mouth Daily. dicyclomine 10 mg capsule Take 1 capsule by mouth Daily as needed for Other (As needed for abdominal cramps). aka: BENTYL docusate sodium 250 MG capsule Take 500 mg by mouth every morning. Hold for loose stools aka: COLACE dorzolamide 2% ophthalmic solution Notes to patient: For glaucoma Place 1 drop into both eyes 2 times daily. aka: TRUSOPT EQ ALLERGY RELIEF (CETIRIZINE) 10 mg tablet Generic drug: cetirizine TAKE 1 TABLET BY MOUTH ONCE DAILY escitalopram 5 MG tablet Take 5 mg by mouth Daily. aka: LEXAPRO famotidine 40 MG tablet Notes to patient: To help prevent heartburn Take 1 tablet by mouth nightly. aka: PEPCID ferrous sulfate 325 mg tablet Notes to patient: For anemia Take 1 tablet by mouth daily (with breakfast). fluticasone 50 mcg/nasal spray 1 spray by Nasal route Daily as needed for Allergies. aka: FLONASE ketoconazole 2% cream Apply topically 2 times daily. aka: NIZORAL latanoprost 0.005% ophthalmic solution Notes to patient: For glaucoma Place 1 drop into both eyes nightly. aka: XALATAN metoprolol succinate 25 mg 24 hr tablet Notes to patient: For heart and blood pressure Take 1 tablet by mouth nightly. aka: TOPROL-XL nitroglycerin 0.4 mg SL tablet Notes to [...] mouth every morning (before breakfast). aka: PROTONIX Polyethylene Glycol 3350 Powd Take 17 g by mouth Daily as needed for Constipation. polyvinyl alcohol 1.4% ophthalmic solution Notes to patient: For dry eyes Place 2 drops into both eyes every morning. aka: LIQUITEARS PRESERVISION AREDS 2 Caps Notes to patient: For general health Take 1 capsule by mouth 2 times daily. prochlorperazine 10 mg tablet Notes to patient: For nausea Take 1 tablet by mouth every 8 hours as needed. Respiratory Therapy Supplies Misc Replacement O2 mask. Please evaluate and provide an O2 mask that is more useful to the pat ient. 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 aka: SENOKOT sodium chloride 0.65% nasal spray 2 sprays by Each Nare route Daily as needed for Nasal Dryness. aka: OCEAN TUMS 500 mg chewable tablet Generic drug: calcium carbonate Chew and swallow 2 tablets nightly. UNABLE TO FIND Adult Pull ups, medium size VENTOLIN HFA 90 mcg/puff inhaler Generic drug: albuterol Inhale 2 puffs into the lungs every 4 hours as needed for Wheezing. Discontinued Medications busPIRone 15 mg tablet aka: BUSPAR estradiol 0.1 mg/g vaginal cream aka: ESTRACE [facility] COURSE: Please refer to the H&P for full details and the most recent rounding rounding (progress) n ote. 89F PMhx CAD, CHFpEF, COPD on 3L NC, severe s/p TAVR, parox afib, who p/w SOB and centra l chest pressure, admitted 11/18 for influenza A and COPD exacerbation. The patient was found to have acute hypoxic respiratory failure in setting of influenza and COPD exacerbation triggered likely by the flu. The patient was started on high dose steroid , nebulizers, and tamiflu. The patient was also having central chest pressure on admission a nd troponin slightly elevated believed to be related to type 2 IA given history of TAVR and CHFpEF and no new changes to EKG. The troponin downtrended from admission and chest pain was intermittent throughout her admission. Recheck 11/23 of troponin revealed troponin negative x2 and ekg with no changes from previous evaluations. Last echo was done 09/03/2019 and EF w as 65% and echo was not repeated during admission. Chest pain was likely related to patients anxiety and demanded to be discharged on 11/24. UTI was present on admission and patient was started on augmentin to continue for 3 more days. CXR was done showing no evidence of pneum onia, hyperexpanded lungs and some mild pulmonary vascular congestion. The patient was on co reg and metoprolol at home and these were continued inpatient. The patient also continued as pirin and lipitor. The patient was also receiving lasix during admission with improvement in respiratory status. On day of discharge patient was on baseline 3L Nasal Cannula. The patie nt completed 7 day course of tamiflu during admission. High dose steroids tapered and taperi ng dose prescribed on discharge. Hemoglobin remained stable throughout admission and continu ed to uptrend on day of discharge 8.8 from 8.6. The patient was not started on lexapro on ad mission however was started on 11/22 during admission for anxiety. BNP was trended and showed improvement throughout admission. Please see previous hospitalist notes showing extensive documentation of hospital course fr om 11/17-11/22. Discussed placement with patient and son and decision was made to discharge patient with ho me health order. Referral placed on discharge #Influenza A -last dose tamiflu 11/24 (7 day course during hospitalization) -continue supportive care and symptom control -Removed right arm picc line prior to discharge #acute on chronic COPD exacerbation, stable Is on 3L NC at baseline. Is on chronic prednisone 10mg daily at home. Currently at baseline oxygen requirement, no wheezing on exam. procalc negative, no sign of pneumonia currently -continue prednisone 40mg Daily for 1 more day (last 40mg dose 11/25), then 20mg daily for 4 days, followed by 10mg daily maintenance dosing. -continue augmentin x3 days #Fluid overload with history of CHFpEF #paroxysmal Afib BNP elevated and is now downtrending Continued lasix IV 20mg BID while inpatient, continued lasix 20mg PO BID and daily weights at home. Strict I/Os, daily weights, fluid restrict -cotninue aspirin/statin -Continue metorpolol 25mg HS. 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 ekg shows continued pr ominent T waves unchanged. Chest pain likely related to increased anxiety as well as possibl e pleuritic in nature 2/2 flu. Continue aspirin, lipitor, beta blockers (as prescribed from home) -nitro PRN home medication to continue as needed Monitor for continued chest pain Follow up with cardiology as outpatient. #UTI on admission, asymptomatic Asymptomatic however urine cultures growing ecoli and enterococcus faecalis pansensitive. G iven leukocytosis and family concern will treat. -will cover with augmentin for total of 5 days to take continue course as outpatient. #Anxiety Continue lexapro #Anemia, chronic Hemoglobin currently stable 8.6->8.8. Patient has had blood tranfusions and work up in the past without clear etiology. Is likely anemia of chronic disease vs less likely chronic occu lt GI blood loss. -continue to monitor as outpatient #Hypertensive Blood pressures elevated likely 2/2 anxiety. Patient has history of refusing meds during in patient Recommend continue home medications with follow up with cardiology and PCP Most recent weight: Input and output for last 24hrs: Wt Readings from Last 1 Encounters: 11/23/19 55.1 kg (121 lb 7.6 oz) I/O last 24 Hours: In: 540 [P.O.:540] Out: 1400 [Urine:1400] Vitals Ranges: Temp: [36.8 C (98.2 F)-36.9 C (98.4 F)] 36.8 C (98.2 F) Pulse: [90-116] 98 Resp: [18-20] 20 BP: (148-192)/(67-92) 192/92 Vitals: Temp: 36.8 C (98.2 F) BP: (!) 192/92 Pulse: 98 Resp: 20 SpO2: 97 % SpO2 97 % on nasal cannula at flow rate 3L/min PHYSICAL EXAM: Patient seen and examined by me on discharge day PROCEDURES AND CONSULTS: Procedures 11/23 CXR IMPRESSION: Hyperexpanded lungs with COPD changes. Generally stable thickening of the central interstitial markings/bronchovascular markings suspicious for mild diffuse pulmonary inflammation/infection versus pulmonary vascular congestion. 11/18 CXR IMPRESSION: Mild enlargement of the heart with thickening and prominent central bronchovascular markings suggestive of pulmonary vascular congestion or subtle pulmonary inflammation/infection. Consults PT/OT Home health Referral Cardiology Referral cardiac heart failure clinic PENDING RESULTS: DISPOSITION AND DISCHARGE INSTRUCTIONS: Follow-up Information Candido Link MD On 11/30/2019. Specialty: Internal Medicine Why: This is your hospital follow up appointment, scheduled for 10:00, Please check in at 9:45. Contact information: [address] [place] [phone] Condition: Patient being discharged with condition improved Diet: cardiac diet Greater than 30 minutes were spent on discharge and coordination of post-hospital care. Electronically signed by: Chace Higuera MD, 11/24/2019 4:44 PM [facility] Reference. This is NOT part of the patient's formal assessment section. In the assessment or plan section of notes the author may date some of the subsections with a number such as "23" or "23rd" to indicate the date of that entry [...] this chart may have been created with [employer] voice recognition software. Occasi onal wrong-word or sound-alike substitutions may have occurred due to the inherent owen itations of voice recognition software. Please read the chart carefully and recognize, using context, where these substitutions have occurred documented in th is encounter Discharge Instructions Instructions Chace Higuera MD - 11/24/2019Please continue medications as prescribed Finished treatment with tamiflu while inpatient Continue augmentin for total of 7 more doses (3 1/2 more days) as outpatient Continue prednisone taper: 40mg (4 tablets) on 11/25. 20mg (2 tablets) for 4 days, then cont inue 10mg prednisone tablet maintenance dosing. Continue pain control and anxiety control for chest pain, continue aspirin and statin. Continue 3L nasal cannula oxygen at home as previously prescribed Please follow up with your primary care provider within 1 week, scheduled for 11/30 at 10am. Please continue daily weights to monitor fluid status. Patient will continue lasix 20mg twi ce a day until seen by her primary care provider. Influenza (Adult) Influenza is also called the flu. It is a viral illness that affects the air passages of yo ur lungs. It is different from the common cold. The flu can easily be passed from one to per son to another. It may be spread through the air by coughing and sneezing. Or it can be spre ad by touching the sick person and then touching your own eyes, nose, or mouth. The flu starts 1 to 3 days after you are exposed to the flu virus. It may lastfor 1 to 2 weeks but many people feel tired or fatigued for many weeks afterward. You usually don t n eed to take antibiotics unless you have a complication. This might be an ear or sinus infect ion or pneumonia. Symptoms of the flu may be mild or severe. They can include extreme tiredness (wanting to s sangeetha in bed all day), chills, fevers, muscle aches, soreness with eye movement, headache, and a dry, hacking cough. Home care Follow these guidelines when caring for yourself at home: Avoid being around cigarette smoke, whether yours or other people s. Acetaminophen or ibuprofen will help ease your fever, muscle aches, and headache. Don t give aspirin to anyone younger than 18 who has the flu. Aspirin can harm the liver. Nausea and loss of appetite are common with the flu. Eat light meals. Drink 6 to 8 glass es of liquids every day. Good choices are water, sport drinks, soft drinks without caffeine, juices, tea, and soup. Extra fluids will also help loosen secretions in your nose and lungs . Hboo-ekr-huvbqwc cold medicines will not make the flu go away faster. But the medicines may help with coughing, sore throat, and congestion in your nose and sinuses. Don t use a decongestant if you have high blood pressure. Stay home until your fever has been gone for at least 24 hours without using medicine to reduce fever. Follow-up care Follow up with your healthcare provider, or as advised, if you are not getting better over the next week. If you are age 65 or older, talk with your provider about getting a pneumococcal vaccine ev janae 5 years. You should also get this vaccine if you have chronic asthma or COPD. All adults should get a flu vaccine every fall. Ask your provider about this. When to seek medical advice Call your healthcare provider right away if any of these occur: Cough with lots of colored mucus (sputum) or blood in your mucus Chest pain, shortness of breath, wheezing, or trouble breathing Severe headache, or face, neck, or ear pain New rashwith fever Fever of 100.4F (38C)or higher, or asdirected by your healthcare provider Confusion, behavior change, or seizure Severe weakness or dizziness You get a newfever or cough after getting better for a few days Date Last Reviewed: 10/06/201619994220-5651 [employer]. [address] [place] [address], [place] [address]. All righ ts reserved. This information is not intended as a substitute for professional medical care. Always follow your healthcare professional's instructions. Discharge Instructions:COPD You have been diagnosed with chronic obstructive pulmonary disease (COPD). This is a name g iven to a group of diseases that limit the flow of air in and out of your lungs. This makes it harder to breathe. With COPD, you are also more likely to get lung infections. COPD inclu tanya chronic bronchitis and emphysema. COPD ismost often caused by heavy, long-term cigaret te smoking. Home care Quitsmoking If you smoke, quit. It is the best thing you can do for your COPD and your overall healt h. Join a stop-smoking program. There are even telephone, text message, and online programs to help you quit. Ask yourhealthcare providerabout medicines or other methods to help you quit. Ask family members to quit smoking as well. Don't allow people to smoke in your home, in your car,or when they are around you. Protect yourself from infection Wash your hands often. Do your best tokeep your hands away from your face. Most germs are spread from your hands to your mouth. Get a flu shot every year. Also ask yourprovider about pneumonia vaccines. Stay away from crowds. It's especially important to do this in the winter when more peop le have colds and flu. To stay healthy, get enough sleep, exercise regularly, and eat a balanced diet. You shou ld: ? Get about 8 hours of sleep every night. ? Try to exercise for at least 30 minutes on most days. ? Have healthy foods including fruits and vegetables, 100% whole grains, lean meats and fis h, and low-fat dairy products. Try to stay away from foods high in fats and sugar. Take your medicines Take your medicines exactly as directed. Don't skip doses. Manage your stress Stress can make COPD worse. Use this stress management method: Find a quiet place and sit or lie in a comfortable position. Close your eyes and do breathing exercises for several minutes. Ask your provider about the best way to breathe. Pulmonary rehabilitation Pulmonary rehab can help you feel better. These programs include exercise, breathing met hods, information about COPD, counseling, and help for smokers. Askyour provider or your local hospital about programs in your area. When to call your healthcare provider Call yourprovider right away if you have any of the following: Shortness of breath, wheezing, or coughing More mucus Yellow, green, bloody, or smelly mucus Fever or chills Tightness in your chest that does not go away with rest or medicine An irregular heartbeat or a feeling that your heart is beating very fast Swollen ankles Date Last Reviewed: 07/06/201819998027-3197 [employer]. [address] [place] [address], [place] [address]. All righ ts reserved. This information is not intended as a substitute for professional medical care. Always follow your healthcare professional's instructions. AttachmentsThe following attachments cannot be sent through Care Everywhere.Chest Pain, Non cardiac (Luxembourger)documented in this encounter Medications at Time of [...] | | | | | | | Tinea horacios | | | | | | [...] tablet by | 15 | 0 | 10/27/19 | | | (ZOFRAN ODT) 4 mg [...] | | 0 | | | | (OCEAN) 0.65% nasal | Nare route. two to | | | | | | spray | three times daily as | | | | | | | needed for nasal | | | | | | | dryness | | | | | + + + +---------+ + + | acetaminophen | Take 2 tablets by | 120 | 0 | 07/24/20 | | | (TYLENOL) 325 mg | mouth every 6 hours | tablet | | 19 | 0 | | tablet | as needed for Pain | | | | | | | (or fever >= 38.6 C | | | | | | | (101.5 F)). | | | | | + + + +---------+ + + | albuterol | Inhale 2 puffs into | | 0 | | | | (VENTOLIN HFA) 90 | the lungs every 4 | | | | 0 | | mcg/puff inhaler | hours as needed for | | | | | | | Wheezing. | | | | | + + + +---------+ + + | | Take 1 tablet by | 7 | 0 | 11/24/19 | | | amoxicillin-clavulan | mouth 2 times daily | tablet | | 20 | 0 | | ate (AUGMENTIN) | for 7 doses. | | | | | | 875-125 mg per | Indications: UTI - | | | | | | tabletIndications: | Lower | | | | | | UTI - LOWER | | | | | | + + + +---------+ + + | atorvaSTATin | Take 1 tablet by | 90 | 0 | 08/16/20 | | | (LIPITOR) 20 mg | mouth every morning. | tablet | | 19 | 0 | | tablet | | [...] + + + +---------+ + + | bisacodyl | Take 5 mg by mouth | | 0 | 08/28/20 | | | (DULCOLAX) 5 mg EC | Daily. | | | 19 | 0 | | tablet | | | | | | + + + +---------+ + + | budesonide | Take 2 mLs by | 180 mL | 3 | 06/22/20 | | | (PULMICORT) 0.5 mg/2 | nebulization 2 times | | | 19 | 0 | | mL nebulizer | daily. Dx [...] + + | docusate sodium | Take 500 mg by mouth | | 0 | | | | (COLACE) 250 MG | every morning. Hold | | | | 0 | | capsule | for loose stools | | | | | + + + +---------+ + + | EQ ALLERGY RELIEF, | TAKE 1 TABLET BY | 30 | 1 | 10/08/19 | | | CETIRIZINE, 10 MG | MOUTH ONCE DAILY | tablet | | 20 | 0 | | tablet | | | | | | + + + +---------+ + + | escitalopram | Take 5 mg by mouth | | 0 | | | | (LEXAPRO) 5 MG | Daily. | | | | 0 | | tablet | | | | | | + + + +---------+ + + | | Take 1 tablet by | 120 | 0 | 11/11/19 | | | HYDROcodone-acetamin | mouth every [...] + + + +---------+ + + | metoprolol | Take 1 tablet by | 90 | 1 | 06/16/20 | | | succinate | mouth nightly. | tablet | | 19 | 0 | | (TOPROL-XL) 25 mg 24 | [...] + + + +---------+ + + | Polyethylene | Take 17 g by mouth | | 0 | 06/28/20 | | | Glycol 3350 POWD | Daily as needed for | | | 18 | 0 | | | Constipation. | | | | | + + + +---------+ + + | predniSONE | Take 4 tablets by | 30 | 0 | 11/25/19 | | | (DELTASONE) 10 mg | mouth Daily. Take 4 | tablet | | 20 | 0 | | tablet | tablets (40mg) on | | | | | | | 11/25/19. Followed by | | | | | | | 2 tablets (20mg) | | | | | | | for 4 days 11/26, | | | | | | | 11/27, 11/28, and | | | | | | | 11/29. Followed by 1 | | | | | | | tablet (10mg) | | | | | | | maintenance | | | | | | | indefinitely | | | | | + + + +---------+ + + | UNABLE TO | Adult Pull ups, | 100 | 3 | 08/12/20 | | | FINDIndications: | medium size | each | | 19 | 0 | | Mixed stress and | | | | | | | urge urinary | | | | | | | incontinence | | | | | | + + + +---------+ + + documented as of this encounter Progress Notes Chace Higuera MD - 11/24/2019 11:24 AM PSTFormatting of this note might be differen t from the original. [place] HOSPITALIST PROGRESS NOTE Patient: Ángela Crowley : 1930: Age: 89 y.o. MedRec: [id number] PCP: Candido Link MD Admission date: 11/18/2019 Hospital day # : 6 Physician author: Chace Higuera MD Today: 11/24/2019 Assessment and Hospital Course Active Hospital Problems Diagnosis Influenza A COPD exacerbation Resolved Hospital Problems No resolved problems to display. 89F PMhx CAD, COPD on 3L NC, severe s/p TAVR, parox afib, who p/w SOB and central chest pressure, admitted 11/18 for influenza A and COPD exacerbation. Plan #Influenza A -last dose tamiflu today. -continue supportive care and symptom control -Remove picc line prior to discharge #acute on chronic COPD exacerbation, stable Is on 3L NC at baseline. Is on chronic prednisone 10mg daily at home. Currently at baseline oxygen requirement, no wheezing on exam. procalc negative, no sign of pneumonia currently -continue prednisone 40mg Daily for 1 more day (last 40mg dose 11/25), then 20mg daily for 4 days, followed by 10mg daily maintenance dosing. -continue azithromycin #Fluid overload with history of CHFpEF #paroxysmal Afib BNP elevated and is now downtrending Continued lasix IV 20mg BID while inpatient, recommend continue lasix 20mg PO BID and daily weights at home. Strict I/Os, daily weights, fluid restrict -cotninue aspirin/statin -Continue metorpolol 25mg HS. Is also on coreg 6.25mg BID, will continue -not on current anticoagulant due to anemia, will follow up outpatient with cardiology -monitor telemetry #Chest pain and mildly elevated troponin likely type 2 IA Troponin downtrend, recheck trops on 11/23 0.04 and 0.04. ekg shows continued prominent T wa ves unchanged. Chest pain likely related to increased anxiety. Continue aspirin, lipitor, beta blockers Monitor for continued chest pain Follow up with cardiology as outpatient. #UTI on admission, asymptomatic Asymptomatic however urine cultures growing ecoli and enterococcus faecalis pansensitive. G iven leukocytosis and family concern will treat. -will cover with augmentin for total of 5 days to take continue course as outpatient. #Anxiety Continue lexapro #Anemia, chronic Hemoglobin currently stable 8.6->8.8. Patient has had blood tranfusions and work up in the past without clear etiology. Is likely anemia of chronic disease vs less likely chronic occu lt GI blood loss. -continue to monitor as outpatient DVT Ppx: heparin GI PPx: protonix Diet: cardiac, fluid restrict, low salt Dispo: Home health orders placed. Plan for discharge today. Chace Higuera MD 11/24/2019 11:[address] [facility] Subjective CC Patient continues to have anxiety that causes chest pain. Work up during admission makes ca rdiac cause of chest pain unlikely. Remove picc line today ROS See above Objective Exam General NAD, AOx3 Cardiac RRR, no murmurs rubs or gallups Right PICC line in place Extremities 1+ pitting edema bilaterally lower extremities Lung CTA bilaterally Normal respirations on 3L NC Abdominal Soft, Nontender, nondistended Neuro No focal neurologic deficits Serial weights: Filed Weights: 11/18/19 0102 11/18/19 0440 11/19/19 0459 11/19/19 2100 Weight: 54.4 kg (119 lb 14.9 oz) 52 kg (114 lb 10.2 oz) 53.3 kg (117 lb 8.1 oz) 53.3 kg (11 7 lb 8.1 oz) 11/20/19 0415 11/20/19 2200 11/21/19 0024 11/22/19 0405 Weight: 54.6 kg (120 lb 5.9 oz) 54.6 kg (120 lb 5.9 oz) 53.4 kg (117 lb 11.6 oz) 54.1 kg (1 19 lb 4.3 oz) 11/23/19 0513 Weight: 55.1 kg (121 lb 7.6 oz) Most recent weight: Input and output 2 shifts and 3 shifts: Wt Readings from Last 1 Encounters: 11/23/19 55.1 kg (121 lb 7.6 oz) I/O last 24 Hours: In: 540 [P.O.:540] Out: 1400 [Urine:1400] I/O last 3 completed shifts: In: 590 [P.O.:590] Out: 1750 [Urine:1750] Vitals Ranges: Temp: [36.4 C (97.5 F)-36.9 C (98.4 F)] 36.8 C (98.2 F) Pulse: [90-116] 98 Resp: [18-20] 20 BP: (148-192)/(67-92) 192/92 Vitals: Temp: 36.8 C (98.2 F) BP: (!) 192/92 Pulse: 98 Resp: 20 SpO2: 97 % SpO2 97 % on nasal cannula at flow rate 3L/min Diet and Supplements Diet Diet fat and cholesterol modified; sodium restricted 2 gm; 1800 ml fluid; Effective Now Number of Occurrences: Until Specified Order Questions: Type Diet fat and cholesterol modified Sodium restictions sodium restricted 2 gm Fluid volume restictions 1800 ml fluid Objective Data Allergies: Allergies Allergen Reactions Metronidazole GI Upset Flagyl [Metronidazole] Nausea And Vomiting and GI Upset Percocet [Oxycodone] Unknown Pregabalin Unknown Lyrica Sulfa Antibiotics Unknown Current Medications: Current Facility-Administered Medications Medication Dose Route Frequency Provider Last Rate Last Dose acetaminophen (TYLENOL) tablet 650 mg 650 mg Oral Q6H PRN Anna Jade MD adult multivitamin with minerals/iron tablet 1 tablet 1 tablet Oral Daily Anna barber MD 1 tablet at 11/24/19 0925 albuterol 2.5 mg/3 mL nebulizer solution 2.5 mg 2.5 mg Nebulization RT Q4H PRN Anna Jade MD 2.5 mg at 11/21/19 2325 albuterol-ipratropium 2.5-0.5 mg/3 mL nebulizer solution 3 mL 3 mL Nebulization RT Q6H Anna Jade MD 3 mL at 11/24/1932 amoxicillin-clavulanate (AUGMENTIN) 875-125 mg per tablet 1 tablet 1 tablet Oral BID M felipe Higuera MD 1 tablet at 11/24/19924 aspirin chewable tablet 81 mg 81 mg Oral Daily Anna Jade MD 81 mg at 11/24/19 0 925 atorvaSTATin (LIPITOR) tablet 20 mg 20 mg Oral QAM Anna Jade MD 20 mg at 924 benzonatate (TESSALON) capsule 200 mg 200 mg Oral TID PRN Anna Jade MD bisacodyl (DULCOLAX) EC tablet 5 mg 5 mg Oral Daily PRN Anna Jade MD brimonidine (ALPHAGAN) 0.2% ophthalmic solution 1 drop 1 drop Both Eyes BID Anna powell MD 1 drop at 11/23/192030 budesonide (PULMICORT) nebulizer solution 0.5 mg 0.5 mg Nebulization BID Anna Jade MD 0.5 mg at 11/24/19931 calcium carbonate (TUMS) chewable tablet 1,000 mg 1,000 mg Oral Daily Jazz Packer 1,000 mg at 11/24/19 0924 calcium carbonate (TUMS) chewable tablet 1,000 mg 1,000 mg Oral Q4H PRN Anna Jade MD dicyclomine (BENTYL) capsule 10 mg 10 mg Oral Daily PRN Anna Jade MD docusate sodium (COLACE) capsule 200 mg 200 mg Oral QAM Anna Jade MD 200 mg at 11/24/19 0925 dorzolamide (TRUSOPT) 2% ophthalmic solution 1 drop 1 drop Both Eyes BID Anna Jade MD 1 drop at 11/24/19 0951 escitalopram (LEXAPRO) tablet 5 mg 5 mg Oral Daily Keyur Carvajal MD 5 mg at 0 0924 ferrous sulfate tablet 325 mg 325 mg Oral Daily with breakfast Anna Jade MD 325 mg at 11/24/19 0803 fluticasone (FLONASE) 50 mcg/nasal spray 1 spray 1 spray Nasal Daily PRN Anna Jade MD furosemide (LASIX) injection 20 mg 20 mg Intravenous BID (8 and 16) Keyur Carvajal MD 20 mg at 11/24/19 0803 guaiFENesin (ROBITUSSIN) 100 mg/5 mL liquid 200 mg 200 mg Oral Q4H PRN Anna Jade MD heparin 5,000 units/mL injection 5,000 Units 5,000 Units Subcutaneous 2 times per day Anna Jade MD 5,000 Units at 11/24/19 0928 HYDROcodone-acetaminophen (NORCO) 7.5-325 mg per tablet 1 tablet 1 tablet Oral Q6H PRN Anna Jade MD 1 tablet at 11/24/19 0803 latanoprost (XALATAN) 0.005% ophthalmic solution 1 drop 1 drop Both Eyes Nightly Rebeca Jade MD 1 drop at 11/23/192030 magnesium hydroxide (MILK OF MAGNESIA) 400 mg/5 mL suspension 30 mL 30 mL Oral Nightly PRN Anna Jade MD melatonin tablet 3 mg 3 mg Oral Nightly PRN Anna Jade MD metoprolol succinate (TOPROL-XL) ER tablet 25 mg 25 mg Oral Nightly Anna Jade MD 25 mg at 11/23/192025 morphine injection 0.26-0.5 mg 0.26-0.5 mg Intravenous Q2H PRN Keyur Carvajal MD nitroglycerin (NITROSTAT) SL tablet 0.4 mg 0.4 mg Sublingual Q5 Min PRN Anna Jade MD ondansetron (ZOFRAN) injection 4 mg 4 mg Intravenous Q6H PRN Anna Jade MD oseltamivir (TAMIFLU) capsule 30 mg 30 mg Oral BID Anna Jade MD 30 mg at 2024 pantoprazole (PROTONIX) DR tablet 40 mg 40 mg Oral QAM Anna Jade MD 40 mg at 11/24/19 0824 polyethylene glycol (MIRALAX) powder 17 g 17 g Oral Daily PRN Anna Jade MD polyvinyl alcohol (LIQUITEARS) 1.4% ophthalmic solution 2 drop 2 drop Both Eyes QAM ara Jade MD 2 drop at 11/23/19 0901 predniSONE (DELTASONE) tablet 40 mg 40 mg Oral Daily Keyur Carvajal MD 40 mg at 11/06 06/25 0925 senna (SENOKOT) tablet 8.6 mg 8.6 mg Oral BID PRN Anna Jade MD Current Infusions: Hematology and anemia Recent Labs Lab 11/24/19 0509 11/23/198 11/22/192044 WBC 12.0* 10.3 9.5 HGB 8.8* 8.6* 8.1* HCT 28.7* 28.2* 25.9* PLT 171 136* 136* NEUPCT 81.4 82.4* 87.9* No results for input(s): PROTIME, INR, PTT in the last 168 hours. No results for input(s): IRON, TIBC, PCTSAT, FERRITIN, TSH, LDTPLVGR36, FOLATE in the last 168 hours. Inflammatory markers Recent Labs Lab 11/23/19 0458 11/22/19204411/18/19 012 LACTATE -- -- 0.8 PROCALCITONI 0.17 0.16 0.09 CRP -- -- 39.60* Chemistry Recent Labs Lab 11/24/19 0509 11/23/19 0458 11/22/19 0455 11/18/19 0128 GLU 85 77 85 < > 99 NA 143 140 142 < > 145 K 3.5 3.4 3.9 < > 3.6 CL 100 101 101 < > 109* CO2 38* 36* 36* < > 31 ANIONGAP 5 3 5 < > 5 BUN 17 17 17 < > 24* CREA 0.51* 0.48* 0.57 < > 0.68 GFRNONAA >60 >60 >60 < > >60 CALCIUM 8.4* 8.3* 8.5* < > 8.4* ALBUMIN -- -- 3.3 -- 3.1* TOTALPROTEIN -- -- 5.5* -- 5.2* BILITOT -- -- 0.4 -- 0.3 ALKPHOS -- -- 126* -- 108 ALT -- -- 44 -- 12 AST -- -- 66* -- 18 < > = values in this interval not displayed. Recent Labs Lab 11/24/19 0509 11/19/19 0402 11/18/19 0128 MG 1.9 2.1 1.8 No results for input(s): AMYLASE, LIPASE in the last 168 hours. No results for input(s): TRIG, CHOL, HDL, LDL in the last 168 hours. No results for input(s): AMMONIA in the last 168 hours. Cardiology & Digoxin Recent Labs Lab 11/24/19 0509 11/23/19 1203 11/23/19 0458 11/22/19 0455 11/18/19 1355 11/18/19 0759 11/18/19 0128 TROPONIN -- 0.04 0.04 -- 0.14* 0.19* 0.06* BNP 897* -- 1,065* 1,228* -- -- 487* ABG No results for input(s): PHART, PO2ART, SMP9YRV, RBA6QYQ, BEART, J0LPBBCP in the last 168 h ours. No results for input(s): SPECSOURCE, PHPOCB, PCO2, PO2, HCO3, TCO2, BEART, LMPE3VTK in the last 168 hours. Drug of overdose and abuse No results for input(s): ALCOHOL, ACTMN, SALICYLATE in the last 168 hours. No results for input(s): AMPHEQUAL, BARBITURATE, BENZSCR, CANNIBSCR, AMPHETAMINE, METHADSCR , OPIATESCR in the last 168 hours. Urinalysis Recent Labs Lab 11/18/19 0634 GLUCOSEU Negative WBCUA 50-100* RBCUA 2-5* SQUAMEPIUA 50-100* BACTERIAUA 2+* Point of care glucose No results for input(s): POCGLU in the last 168 hours. Micro results more choices using dot micro (below is last 7 days) Microbiology Results (Last 7) Date with Culture/Sensitivity) Procedure Component Value Units Date/Time Culture, Respiratory, Lower, Smear [[id number]] Collected: 11/24/19 0014 Order Status: Completed Lab Status: Preliminary result Updated: 11/24/19 08 Specimen: Body Fluid from Sputum, Expectorated Gram Stain Result 4+ White Blood Cells 2+ Epithelial cells 4+ Gram positive cocci 1+ Yeast Culture, Urine [[id number]] (Susceptibility) Collected: 11/18/19633 Order Status: Completed Lab Status: Final result Updated: 11/21/19 1246 Specimen: Urine, Clean Catch Culture >100,000 CFU/ml Escherichia coli 50,000 CFU/ml Enterococcus faecalis Comment: For Enterococci, "susceptible" implies the need for high dose penicillin or ampi cillin. Urinary tract infections are usually treated with ampicillin or penicillin alone. F or serious infections, combined therapy with an aminoglycoside is indicated to improve bacteriocidal activity. Susceptibility Escherichia coli (1) Antibiotic Interpretation Microscan Method Status Cefazolin Sensitive <=4 ug/mL Not Specified Final Cefoxitin Sensitive <=4 ug/mL Not Specified Final Ceftazidime Sensitive <=1 ug/mL Not Specified Final Ceftriaxone Sensitive <=1 ug/mL Not Specified Final Ciprofloxacin Sensitive <=0.25 ug/mL Not Specified Final Ertapenem Sensitive <=0.5 ug/mL Not Specified Final Gentamicin Sensitive <=1 ug/mL Not Specified Final Meropenem Sensitive <=0.25 ug/mL Not Specified Final Nitrofurantoin Sensitive <=16 ug/mL Not Specified Final Tobramycin Sensitive <=1 ug/mL Not Specified Final Trimethoprim + Sulfamethoxazole Sensitive <=20 ug/mL Not Specified Final Enterococcus faecalis (2) Antibiotic Interpretation Microscan Method Status Ampicillin Sensitive <=2 ug/mL Not Specified Final Ciprofloxacin Sensitive <=0.5 ug/mL Not Specified Final Levofloxacin Sensitive 1 ug/mL Not Specified Final Nitrofurantoin Sensitive <=16 ug/mL Not Specified Final Penicillin G Sensitive 8 ug/mL Not Specified Final Vancomycin Sensitive 1 ug/mL Not Specified Final Culture, MRSA [[id number]] Collected: 11/18/19 044 Order Status: Completed Lab Status: Final result Updated: 11/19/19 07 Specimen: Tissue from Nares Culture 1+ Staphylococcus aureus,Methicillin resistant (MRSA) Comment: *INFECTION PREVENTION ALERT - MRSA* CONTACT PRECAUTIONS REQUIRED. Influenza A and B RNA, NAAT [[id number]] (Abnormal) Collected: 11/18/19128 Order Status: Completed Lab Status: Final result Updated: 11/18/19 020 Specimen: Body Fluid from Nasopharynx Influenza A PCR Positive Influenza B PCR Negative Respiratory pathogen panel, NAAT [[id number]] (Normal) Collected: 11/18/19128 Order Status: Completed Lab Status: Final result Updated: 11/18/19426 Specimen: Body Fluid from Nasopharynx Parainfluenza 1 Not Detected Adenovirus Not Detected Human Metapneumovirus Not Detected Rhinovirus/Enterovirus Not Detected Parainfluenza 3 Not Detected Culture, Blood [[id number]] Collected: 11/18/19127 Order Status: Completed Lab Status: Final result Updated: 11/23/19 014 Specimen: Peripheral Blood Culture No growth after 5 days incubation. Culture, Blood [[id number]] Collected: 11/18/19127 Order Status: Completed Lab Status: Final result Updated: 11/23/19140 Specimen: Peripheral Blood Culture No growth after 5 days incubation. Radiology results (more choices using dot risresults) Xr Chest Ap Portable Result Date: 11/23/2019 XR CHEST AP PORTABLE 11/23/2019 9:10 AM HISTORY: shortness of breath, chest pain. COMPARISON : 11/22/2019 Findings: Heart is mildly enlarged. Probably due to the central pulmonary vascul ature. Lungs are hyperexpanded. No evidence pneumothorax. Aortic calcifications are seen. No acute osseous findings. Hyperexpanded lungs with COPD changes. Generally stable thickening of the central interstit ial markings/bronchovascular markings suspicious for mild diffuse pulmonary inflammation/inf ection versus pulmonary vascular congestion. Dictated and Signed by: Bartolome Neff MD Elec tronically signed: 11/23/2019 9:32 AM Reference. This is NOT part of [...] this chart may have been created with [employer] voice recognition software. Occasi onal wrong-word or sound-alike substitutions may have occurred due to the inherent owen itations of voice recognition software. Please read the chart carefully and recognize, using context, where these substitutions have occurred ermiguel, Chace hobson MD - 11/23/2019 12:49 PM PSTFormatting of this note might be different from the origin al. [place], [place] HOSPITALIST PROGRESS NOTE Patient: Ángela Crowley : 1930: Age: 89 y.o. MedRec: [id number] PCP: Candido Link MD Admission date: 11/18/2019 Hospital day # : 5 Physician author: Chace Higuera MD Today: 11/23/2019 Assessment and Hospital Course Active Hospital Problems Diagnosis Influenza A COPD exacerbation Resolved Hospital Problems No resolved problems to display. 89F PMhx CAD, COPD on 3L NC, severe s/p TAVR, parox afib, who p/w SOB and central chest pressure, admitted 11/18 for influenza A and COPD exacerbation. Plan #Influenza A -continue tamiflu (last dose 11/24) -continue supportive care and symptom control -plan to remove picc line prior to discharge #acute on chronic COPD exacerbation Is on 3L NC at baseline. Is on chronic prednisone 10mg daily at home. Currently at baseline oxygen requirement, no wheezing on exam. procalc negative, no sign of pneumonia currently -continue prednisone 40mg Daily for 2 more days (last 40mg dose 11/25), then 20mg daily for 4 days, followed by 10mg daily maintenance dosing. -continue azithromycin #Fluid overload with history of CHFpEF #paroxysmal Afib BNP elevated and is now downtrending Continue lasix IV 20mg BID Strict I/Os, daily weights, fluid restrict -cotninue aspirin/statin -Continue metorpolol 25mg HS. Is also on coreg 6.25mg BID, will continue -not on current anticoagulant due to anemia, will follow up outpatient with cardiology -monitor telemetry #Chest pain and mildly elevated troponin likely type 2 IA Troponin downtrend, ekg shows continued prominent T waves unchanged. Continue aspirin, lipitor, beta blockers Monitor for continued chest pain #UTI on admission, asymptomatic Asymptomatic however urine cultures growing ecoli and enterococcus faecalis pansensitive. G iven leukocytosis and family concern will treat. -will cover with cefdinir for total of 5 days to take continue course as outpatient. #Anxiety Continue lexapro #Anemia, chronic Hemoglobin currently stable. Patient has had blood tranfusions and work up in the past with out clear etiology. Is likely anemia of chronic disease vs chronic occult GI blood loss. DVT Ppx: heparin GI PPx: protonix Diet: cardiac, fluid restrict, low salt Dispo: likely 1 more day for diuresis, plan for home with home health. Home health orders p rusty Higuera MD 11/23/2019 12:[address] [facility] Subjective CC Anxiety overnight states she called for hours to go to the restroom but no one came caused increased distress to the patient. Patient states she has chest pain (documented to have bee n present in past) at rest. Refused her morning medications. EKG in am shows no acute ischemic changes, T waves upwards but peaked (no hyperkalemia on m orning labs) and no st elevations. No t wave inversions Troponin 0.04 x2 on 11/23, improved from admission Discussed plan with son POA. JANG See above Objective Exam General NAD, AOx3 Cardiac RRR, no murmurs rubs or gallups Right PICC line in place Extremities 1+ pitting edema bilaterally lower extremities Lung CTA bilaterally Normal respirations on 3L NC Abdominal Soft, Nontender, nondistended Neuro No focal neurologic deficits Serial weights: Filed Weights: 11/18/19 0102 11/18/19 0440 11/19/19 0459 11/19/19 2100 Weight: 54.4 kg (119 lb 14.9 oz) 52 kg (114 lb 10.2 oz) 53.3 kg (117 lb 8.1 oz) 53.3 kg (11 7 lb 8.1 oz) 11/20/19 0415 11/20/19 2200 11/21/19 0024 11/22/19 0405 Weight: 54.6 kg (120 lb 5.9 oz) 54.6 kg (120 lb 5.9 oz) 53.4 kg (117 lb 11.6 oz) 54.1 kg (1 19 lb 4.3 oz) 11/23/19 0513 Weight: 55.1 kg (121 lb 7.6 oz) Most recent weight: Input and output 2 shifts and 3 shifts: Wt Readings from Last 1 Encounters: 11/23/19 55.1 kg (121 lb 7.6 oz) I/O last 24 Hours: In: 250 [P.O.:250] Out: 1150 [Urine:1150] I/O last 3 completed shifts: In: 250 [P.O.:250] Out: 2049 [Urine:0] Vitals Ranges: Temp: [36 C (96.8 F)-37.2 C (98.9 F)] 36.5 C (97.7 F) Pulse: [89-107] 107 Resp: [16-23] 20 BP: (165-170)/(63-84) 170/84 Vitals: Temp: 36.5 C (97.7 F) BP: 170/84 Pulse: 107 Resp: 20 SpO2: 97 % SpO2 97 % on nasal cannula at flow rate 3L/min Diet and Supplements Diet Diet fat and cholesterol modified; sodium restricted 2 gm; Effective Now Number of Occurrences: Until Specified Order Questions: Type Diet fat and cholesterol modified Sodium restictions sodium restricted 2 gm Objective Data Allergies: Allergies Allergen Reactions Metronidazole GI Upset Flagyl [Metronidazole] Nausea And Vomiting and GI Upset Percocet [Oxycodone] Unknown Pregabalin Unknown Lyrica Sulfa Antibiotics Unknown Current Medications: Current Facility-Administered Medications Medication Dose Route Frequency Provider Last Rate Last Dose acetaminophen (TYLENOL) tablet 650 mg 650 mg Oral Q6H PRN Anna Jade MD adult multivitamin with minerals/iron tablet 1 tablet 1 tablet Oral Daily Anna barber MD 1 tablet at 11/22/19 0846 albuterol 2.5 mg/3 mL nebulizer solution 2.5 mg 2.5 mg Nebulization RT Q4H PRN Anna Jade MD 2.5 mg at 11/21/19 2325 albuterol-ipratropium 2.5-0.5 mg/3 mL nebulizer solution 3 mL 3 mL Nebulization RT Q6H Anna Jade MD 3 mL at 11/23/19 0850 aspirin chewable tablet 81 mg 81 mg Oral Daily Anna Jade MD 81 mg at 11/22/19 0 847 atorvaSTATin (LIPITOR) tablet 20 mg 20 mg Oral JOHN Jade MD 20 mg at 0847 azithromycin (ZITHROMAX) 250 mg in sodium chloride 0.9% 250 mL IVPB 250 mg Intravenous Daily Anna Jade MD 252.5 mL/hr at 11/23/19 0852 250 mg at 11/23/19 0852 benzonatate (TESSALON) capsule 200 mg 200 mg Oral TID PRN Anna Jade MD bisacodyl (DULCOLAX) EC tablet 5 mg 5 mg Oral Daily PRN Anna Jade MD brimonidine (ALPHAGAN) 0.2% ophthalmic solution 1 drop 1 drop Both Eyes BID Anna powell MD 1 drop at 11/23/19 0858 budesonide (PULMICORT) nebulizer solution 0.5 mg 0.5 mg Nebulization BID Anna Jade MD 0.5 mg at 11/23/19 0850 calcium carbonate (TUMS) chewable tablet 1,000 mg 1,000 mg Oral Daily Jazz Packer D 1,000 mg at 11/22/19 0848 calcium carbonate (TUMS) chewable tablet 1,000 mg 1,000 mg Oral Q4H PRN Anna Jade MD carvedilol (COREG) tablet 6.25 mg 6.25 mg Oral BID Anna Jade MD 6.25 mg at 0 11/23/19 0815 dicyclomine (BENTYL) capsule 10 mg 10 mg Oral Daily PRN Anna Jade MD docusate sodium (COLACE) capsule 200 mg 200 mg Oral JOHN Jade MD Stopped at 02/18/20 0859 dorzolamide (TRUSOPT) 2% ophthalmic solution 1 drop 1 drop Both Eyes BID Anna Jade MD 1 drop at 11/23/19 0900 escitalopram (LEXAPRO) tablet 5 mg 5 mg Oral Daily Keyur Carvajal MD 5 mg at 0 0856 famotidine (PEPCID) tablet 20 mg 20 mg Oral Nightly Anna Jade MD 20 mg at 11/23 0101 ferrous sulfate tablet 325 mg 325 mg Oral Daily with breakfast Anna Jade MD 325 mg at 11/22/19 0847 fluticasone (FLONASE) 50 mcg/nasal spray 1 spray 1 spray Nasal Daily PRN Anna Jade MD furosemide (LASIX) injection 20 mg 20 mg Intravenous BID (8 and 16) Keyur Carvajal MD 20 mg at 11/23/19 0816 guaiFENesin (ROBITUSSIN) 100 mg/5 mL liquid 200 mg 200 mg Oral Q4H PRN Anna Jade MD heparin 5,000 units/mL injection 5,000 Units 5,000 Units Subcutaneous 2 times per day Anna Jade MD 5,000 Units at 11/22/19 2045 HYDROcodone-acetaminophen (NORCO) 7.5-325 mg per tablet 1 tablet 1 tablet Oral Q6H PRN Anna Jade MD 1 tablet at 11/23/19 0101 latanoprost (XALATAN) 0.005% ophthalmic solution 1 drop 1 drop Both Eyes Nightly Rebeca Jaed MD 1 drop at 11/22/19 2219 magnesium hydroxide (MILK OF MAGNESIA) 400 mg/5 mL suspension 30 mL 30 mL Oral Nightly PRN Anna Jade MD melatonin tablet 3 mg 3 mg Oral Nightly PRN Anna Jade MD metoprolol succinate (TOPROL-XL) ER tablet 25 mg 25 mg Oral Nightly Anna Jade MD 25 mg at 11/23/19 0101 morphine injection 0.26-0.5 mg 0.26-0.5 mg Intravenous Q2H PRN Keyur Carvajal MD nitroglycerin (NITROSTAT) SL tablet 0.4 mg 0.4 mg Sublingual Q5 Min PRN Anna Jade MD ondansetron (ZOFRAN) injection 4 mg 4 mg Intravenous Q6H PRN Anna Jade MD oseltamivir (TAMIFLU) capsule 30 mg 30 mg Oral BID Anna Jade MD 30 mg at 0954 pantoprazole (PROTONIX) DR tablet 40 mg 40 mg Oral QAM AC Anna Jade MD 40 mg at 11/23/19 0642 polyethylene glycol (MIRALAX) powder 17 g 17 g Oral Daily PRN Anna Jade MD polyvinyl alcohol (LIQUITEARS) 1.4% ophthalmic solution 2 drop 2 drop Both Eyes QAM ara Jade MD 2 drop at 11/23/19 0901 predniSONE (DELTASONE) tablet 40 mg 40 mg Oral Daily Keyur Carvajal MD 40 mg at 11/06 05/25 0856 senna (SENOKOT) tablet 8.6 mg 8.6 mg Oral BID PRN Anna Jade MD Current Infusions: Hematology and anemia Recent Labs Lab 11/23/19 0458 11/22/19204411/22/19 0455 WBC 10.3 9.5 16.4* HGB 8.6* 8.1* 9.7* HCT 28.2* 25.9* 32.2* PLT 136* 136* 199 NEUPCT 82.4* 87.9* 85.0* No results for input(s): PROTIME, INR, PTT in the last 168 hours. No results for input(s): IRON, TIBC, PCTSAT, FERRITIN, TSH, [id number], FOLATE in the last 168 hours. Inflammatory markers Recent Labs Lab 11/23/19 0458 11/22/19 2045 11/18/19 0128 LACTATE -- -- 0.8 PROCALCITONI 0.17 0.16 0.09 CRP -- -- 39.60* Chemistry Recent Labs Lab 11/23/19 0458 11/22/19 0455 11/20/19 1658 11/18/19 0128 GLU 77 85 142* < > 99 NA 140 142 142 < > 145 K 3.4 3.9 3.9 < > 3.6 CL 101 101 106 < > 109* CO2 36* 36* 31 < > 31 ANIONGAP 3 5 5 < > 5 BUN 17 17 22 < > 24* CREA 0.48* 0.57 0.95 < > 0.68 GFRNONAA >60 >60 55* < > >60 CALCIUM 8.3* 8.5* 8.2* < > 8.4* ALBUMIN -- 3.3 -- -- 3.1* TOTALPROTEIN -- 5.5* -- -- 5.2* BILITOT -- 0.4 -- -- 0.3 ALKPHOS -- 126* -- -- 108 ALT -- 44 -- -- 12 AST -- 66* -- -- 18 < > = values in this interval not displayed. Recent Labs Lab 11/19/19 0402 11/18/19 0128 MG 2.1 1.8 No results for input(s): AMYLASE, LIPASE in the last 168 hours. No results for input(s): TRIG, CHOL, HDL, LDL in the last 168 hours. No results for input(s): AMMONIA in the last 168 hours. Cardiology & Digoxin Recent Labs Lab 11/23/19 1203 11/23/19 0458 11/22/19 0455 11/18/19 1355 11/18/19 0759 11/18/19 0128 TROPONIN 0.04 0.04 -- 0.14* 0.19* 0.06* BNP -- 1,065* 1,228* -- -- 487* ABG No results for input(s): PHART, PO2ART, OMP5DEC, MIB2BQJ, BEART, [id number] in the last 168 h ours. No results for input(s): SPECSOURCE, PHPOCB, PCO2, PO2, HCO3, TCO2, BEART, [id number] in the last 168 hours. Drug of overdose and abuse No results for input(s): ALCOHOL, ACTMN, SALICYLATE in the last 168 hours. No results for input(s): AMPHEQUAL, BARBITURATE, BENZSCR, CANNIBSCR, AMPHETAMINE, METHADSCR , OPIATESCR in the last 168 hours. Urinalysis Recent Labs Lab 11/18/19 0634 GLUCOSEU Negative WBCUA 50-100* RBCUA 2-5* SQUAMEPIUA 50-100* BACTERIAUA 2+* Point of care glucose No results for input(s): POCGLU in the last 168 hours. Micro results more choices using dot micro (below is last 7 days) Microbiology Results (Last 7) Date with Culture/Sensitivity) Procedure Component Value Units Date/Time Culture, Respiratory, Lower, Smear [[id number]] Order Status: Sent Lab Status: No result Specimen: Body Fluid from Sputum, Expectorated Culture, Urine [[id number]] (Susceptibility) Collected: 11/18/19 0634 Order Status: Completed Lab Status: Final result Updated: 11/21/19 1246 Specimen: Urine, Clean Catch Culture >100,000 CFU/ml Escherichia coli 50,000 CFU/ml Enterococcus faecalis Comment: For Enterococci, "susceptible" implies the need for high dose penicillin or ampi cillin. Urinary tract infections are usually treated with ampicillin or penicillin alone. F or serious infections, combined therapy with an aminoglycoside is indicated to improve bacteriocidal activity. Susceptibility Escherichia coli (1) Antibiotic Interpretation Microscan Method Status Cefazolin Sensitive <=4 ug/mL Not Specified Final Cefoxitin Sensitive <=4 ug/mL Not Specified Final Ceftazidime Sensitive <=1 ug/mL Not Specified Final Ceftriaxone Sensitive <=1 ug/mL Not Specified Final Ciprofloxacin Sensitive <=0.25 ug/mL Not Specified Final Ertapenem Sensitive <=0.5 ug/mL Not Specified Final Gentamicin Sensitive <=1 ug/mL Not Specified Final Meropenem Sensitive <=0.25 ug/mL Not Specified Final Nitrofurantoin Sensitive <=16 ug/mL Not Specified Final Tobramycin Sensitive <=1 ug/mL Not Specified Final Trimethoprim + Sulfamethoxazole Sensitive <=20 ug/mL Not Specified Final Enterococcus faecalis (2) Antibiotic Interpretation Microscan Method Status Ampicillin Sensitive <=2 ug/mL Not Specified Final Ciprofloxacin Sensitive <=0.5 ug/mL Not Specified Final Levofloxacin Sensitive 1 ug/mL Not Specified Final Nitrofurantoin Sensitive <=16 ug/mL Not Specified Final Penicillin G Sensitive 8 ug/mL Not Specified Final Vancomycin Sensitive 1 ug/mL Not Specified Final Culture, MRSA [[id number]] Collected: 11/18/19 0441 Order Status: Completed Lab Status: Final result Updated: 11/19/19 07 Specimen: Tissue from Nares Culture 1+ Staphylococcus aureus,Methicillin resistant (MRSA) Comment: *INFECTION PREVENTION ALERT - MRSA* CONTACT PRECAUTIONS REQUIRED. Influenza A and B RNA, NAAT [[id number]] (Abnormal) Collected: 11/18/19 0129 Order Status: Completed Lab Status: Final result Updated: 11/18/19 0202 Specimen: Body Fluid from Nasopharynx Influenza A PCR Positive Influenza B PCR Negative Respiratory pathogen panel, NAAT [[id number]] (Normal) Collected: 11/18/19128 Order Status: Completed Lab Status: Final result Updated: 11/18/19 042 Specimen: Body Fluid from Nasopharynx Parainfluenza 1 Not Detected Adenovirus Not Detected Human Metapneumovirus Not Detected Rhinovirus/Enterovirus Not Detected Parainfluenza 3 Not Detected Culture, Blood [[id number]] Collected: 11/18/19127 Order Status: Completed Lab Status: Final result Updated: 11/23/19 014 Specimen: Peripheral Blood Culture No growth after 5 days incubation. Culture, Blood [[id number]] Collected: 11/18/19127 Order Status: Completed Lab Status: Final result Updated: 11/23/19140 Specimen: Peripheral Blood Culture No growth after 5 days incubation. Radiology results (more choices using dot risresults) Xr Chest Pa And Lateral Result Date: 11/22/2019 XR CHEST PA AND LATERAL 11/22/2019 7:27 AM HISTORY: influenza. COMPARISON: 11/20/2019 Finding s: Hyperexpanded lungs with a background of COPD changes. Prior aortic valve replacement. Bi lateral mid and lower lung zone interstitial thickening. Aortic calcifications are seen. Mul tilevel thoracic spondylosis. No acute osseous findings. Diffuse thickening of bilateral interstitial markings, concerning for dominant inflammation /infection such as viral pneumonia or bronchitis. Hyperexpanded lungs with dependent COPD ch anges. Dictated and Signed by: Bartolome Neff MD Electronically signed: 11/22/2019 10:24 AM Xr Chest Ap Portable Result Date: 11/23/2019 XR CHEST AP PORTABLE 11/23/2019 9:10 AM HISTORY: shortness of breath, chest pain. COMPARISON : 11/22/2019 Findings: Heart is mildly enlarged. Probably due to the central pulmonary vascul ature. Lungs are hyperexpanded. No evidence pneumothorax. Aortic calcifications are seen. No acute osseous findings. Hyperexpanded lungs with COPD changes. Generally stable thickening of the central interstit ial markings/bronchovascular markings suspicious for mild diffuse pulmonary inflammation/inf ection versus pulmonary vascular congestion. Dictated and Signed by: Bartolome Neff MD Elec tronically signed: 11/23/2019 9:32 AM Reference. This is NOT part of the patient's formal assessment section. In the assessment or plan section of notes the author may date some of the subsections with a number such as "" or "23" to indicate the date of [...] this chart may have been created with BURLESQUICEOUS voice recognition software. Occasi onal wrong-word or sound-alike substitutions may have occurred due to the inherent owen itations of voice recognition software. Please read the chart carefully and recognize, using context, where these substitutions have occurred Keyur Vaz MD - 11/22/2019 10:22 PM PSTHospitalist follow-up Repeat blood work shows a white count of 9.5 and a hemoglobin of 8.1. I believe the value obtained earlier today was erroneous noting hemoglobin was up compared to baseline from 11/20 and the white count was 16,000. Her current value of a white count of 9.5 with a hemoglobi n of 8.1 in association with her procalcitonin of 0.16 suggest that she has principally a vi ral illness and again we will not initiate antibiotic therapy. I am going to order a blood bank tube of blood in the a.m. such that if she drops under 8 g that she may receive a unit of packed red blood cells noting it is unlikely that she will have rapid increase in her blo od counts noting her illness/age, etc. 20 10:26 PM Keyur Vaz MD - 11/22/2019 7:58 PM PST [facility] Hospitalist Progress Note Ángela Crowley is a 89 y.o. female ASSESSMENT and PLAN: Active Hospital Problems Influenza A Patient yesterday was overall fatigued. Her son reported she was having yellow and brown m ucus and wants a culture performed. I reviewed with him her chest x-ray, her temperature cu rve, and white blood cell count in addition to her nasopharynx MRSA swab. She did not have evidence of pneumonia radiographically and antibiotics covering organisms short of MRSA wo uld enhance MRSA growth in her nasopharynx and increase the risk of aspiration of this bacte effie thus I advised against further antibiotics other than continued azithromycin which was i nitiated by the admitting physician. Today the patient's white count is 16,000 and I assessed her this p.m. she was agitated and wanted to be discharged. He had not been given Lexapro in discussion with her son and had been on this as an outpatient. Stated this was excellent drug for her generalized anxiety a nd reported she had been on BuSpar in the past but it was not effective and I discontinued this medication and initiated her Lexapro 5 mg. It advised him that I believe that a tiny t ouch of morphine such as 0.25 to 0.5mg could help relieve Sunita and work of breathing albeit very rates have been relatively good. Was ordered but thus far is not been given. With he r family leaving the patient is slept much of the afternoon. He did ambulate in the hallway for me this afternoon actually 30 feet and then sat in a walker with a chair and returned b ack to her room. I did advise him we would attempt to ambulate her twice daily limited romeo use of her fatigue associated with influenza. This evening I tried to ambulate the patient and she did awaken for me but quite resistant asking me to leave her alone. I encouraged he r to get up into a chair and she stated she wanted to be left alone. WBC increasing to 16,0 00 is a new finding but the CBC is somewhat different with hematocrit increased to 32 withou t other signs of hemoconcentration(?accuracy) and she has not had fevers and chest x-ray th is morning did not show infiltrate but did show increased interstitial changes consistent wi th influenza. I am going to repeat her CBC and procalcitonin to help differentiate early ba cterial from viral process. Of note her BNP this morning was 1200 be indicative of her edema associated with her proces s. I did increase her furosemide from 20 mg once daily to IV twice daily. With the first d ose she had to get urine output as such I asked him to hold the p.m. dose. Patient has been drinking water throughout the day and 200 cc are reported on the shift but been more consum ption than this. With her elevated BNP and to continue to follow her without IV fluids at t his time and repeat LFTs in a.m. Her alk phos is minimally elevated but the bladder is surg ically absent. In discussion with her son she is at baseline relative to oxygenation with h im reporting to me she uses 2 to 3 L of oxygen at home 3 L today with ambulation she desatur ated at 98 to 100%. Turned down to 2 L and oximetry is 96%. COPD exacerbation Currently on zone 40 mg daily, duo nebs every 6 hours with PRN albuterol, and a azithromyci n. Oxygen requirements have not increased follow-up chest x-ray shows typical appearance o f influenza without lobar infiltrates. BNP is suggestive of some pulmonary edema which may be secondary to the influenza. Received IV furosemide and currently is diuresing. History of chronic intermittent GI blood loss Has had transfusions in the past and has not tolerated more than aspirin. Given her curren t stress with a drop in hemoglobin will continue to follow for worsening anemia and continue Protonix 40 mg daily and aspirin 81 mg daily. SUBJECTIVE: Patient earlier today was agitated and anxious and in discussion with her son he believes t his is secondary to her not receiving her 5 mg of Lexapro. Advised him I was happy to start this medication and that likely the combination of being off Lexapro, feeling poorly with i nfluenza, being on the steroids and being forced to have urine frequency when she is feeling poorly (no Ceja catheter) have all contributed to her getting agitated. VITALS: Temp: 36 C (96.8 F), Pulse: 91, Resp: 20, BP: 165/63, SpO2 99 % on nasal cannula at [place] w rate 3L/min Temp Min: 35.7 C (96.2 F) Max: 36.7 C (98 F) Weight: 54.4 kg (119 lb 14.9 oz) Intake/Output Summary (Last 24 hours) at 11/22/20191958 Last data filed at 11/22/2019 1500 Gross per 24 hour Intake 200 ml Output 1600 ml Net -1400 ml PHYSICAL EXAM: Cardiovascular: Regular rate and rhythm with a quiet 1-2 over 6 right upper sternal border murmur, HR 92 at time of my assessment Respiratory: Significantly diminished breath sounds without wheeze abdomen: Without tenderness Extremities: without Edema DIAGNOSTIC STUDIES: Available data and images were reviewed personally. Significant results and findings are a ddressed here or in the Assessment and Plan. Lab Results Component Value Date HGB 9.7 (L) 11/22/2019 HCT 32.2 (L) 11/22/2019 PLT 199 11/22/2019 WBC 16.4 (H) 11/22/2019 Lab Results Component Value Date NA 142 11/22/2019 K 3.9 11/22/2019 CL 101 11/22/2019 CO2 36 (H) 11/22/2019 CREA 0.57 11/22/2019 BUN 17 11/22/2019 MG 2.1 11/19/2019 CRP 39.60 (H) 11/18/2019 ESR 4 06/06/2019 BNP 1,228 (H) 11/22/2019 Glucose, POC Date/Time Value Ref Range Status 06/12/2019 12:06 PM 104 70 - 109 mg/dL Final 06/11/2019 09:05 PM 172 (H) 70 - 109 mg/dL Final 06/11/2019 04:58 PM 230 (H) 70 - 109 mg/dL Final Glucose, POC Date/Time Value Ref Range Status 06/12/2019 12:06 PM 104 70 - 109 mg/dL Final 06/11/2019 09:05 PM 172 (H) 70 - 109 mg/dL Final 06/11/2019 04:58 PM 230 (H) 70 - 109 mg/dL Final Xr Chest Pa And Lateral Result Date: 11/22/2019 XR CHEST PA AND LATERAL 11/22/2019 7:27 AM HISTORY: influenza. COMPARISON: 11/20/2019 Finding s: Hyperexpanded lungs with a background of COPD changes. Prior aortic valve replacement. Bi lateral mid and lower lung zone interstitial thickening. Aortic calcifications are seen. Mul tilevel thoracic spondylosis. No acute osseous findings. Diffuse thickening of bilateral interstitial markings, concerning for dominant inflammation /infection such as viral pneumonia or bronchitis. Hyperexpanded lungs with dependent COPD ch anges. Dictated and Signed by: Bartolome Neff MD Electronically signed: 11/22/2019 10:24 AM Total time of approximately 25 minutes was spent with the patient and/or patient's family, and/or on the patient's floor/unit, of which more than 50% was spent counseling and/or coord ination the patient's care as outlined above. Keyur Carvajal MD 11/22/2019 7:[address] [facility] Portions of this chart may have been created with BURLESQUICE[employer] voice recognition software. Occasi onal wrong-word or sound-alike substitutions may have occurred due to the inherent owen itations of voice recognition software. Please read the chart carefully and recognize, using context, where these substitutions have occurred arker, Keyur Murray MD - 0 11/21/2019 3:10 PM PST [facility] Hospitalist Progress Note Ángela Crowley is a 89 y.o. female ASSESSMENT and PLAN: Active Hospital Problems Influenza A Patient reports today is not as good as yesterday. She is overall fatigued. Her son repor ts she is having yellow and brown mucus and wants a culture performed. I reviewed with him yesterday's chest x-ray, her temperature curve, and white blood cell count in addition to he r nasopharynx MRSA swab. Currently does not have evidence of pneumonia radiographically yes terday and antibiotics covering organisms short of MRSA would enhance MRSA growth in her na sopharynx and increase the risk of aspiration of this bacteria thus I believe currently anti biotics are not indicated other than continued azithromycin which was initiated by the admit [facility] physician. I did advise him that I would be happy to repeat her chest x-ray tomorrow k eeping a close eye on her for the development of new evidence of bacterial pneumonia doubt l obar infiltrates, new fevers, worsening white count, or other signs of infection lower respi ratory infection that we will currently continue our treatment plan. I did advise him that progressive de-escalation of her steroids may be resulting in more mucus production, but kb l make it easier to identify infection should it occur, noting she received 140 mg of Solu-M edrol the first 24 hours and 60 mg daily the next 48 hours and today was converted to predni sone 40 mg daily. She continues on Tamiflu. We will check an EKG noting today her heart ra te is up a bit and we want to make sure this is not an atrial rhythm. COPD exacerbation Given infectious nature of illness a moderate dose of steroids is given tolerating 20 mg ev janae 8 hours of Solu-Medrol. This with bronchodilators. Follow-up chest x-ray shows typical appearance of influenza without lobar infiltrates or fluid overload. Prednisone de-escalat ed today to 40 mg daily History of chronic intermittent GI blood loss Has had transfusions in the past and has not tolerated more than aspirin. Given her curren t stress with a drop in hemoglobin will continue to follow for worsening anemia and continue Protonix 40 mg daily and aspirin 81 mg daily. SUBJECTIVE: Patient reports increasing mucus today and fatigue. VITALS: Temp: 36.6 C (97.8 F), Pulse: 116, Resp: 24, BP: 146/76, SpO2 96 %(Pt states SOB, wants to go home.) on nasal cannula at flow rate 3(O2 increased from 2 liters per patient request .)L/min Temp Min: 36.1 C (97 F) Max: 36.7 C (98.1 F) Weight: 54.4 kg (119 lb 14.9 oz) Intake/Output Summary (Last 24 hours) at 11/21/2019 1510 Last data filed at 11/21/2019 1400 Gross per 24 hour Intake 740 ml Output 1850 ml Net -1110 ml PHYSICAL EXAM: Cardiovascular: Regular rate and rhythm with a quiet 1-2 over 6 right upper sternal border murmur, HR 108 at time of my assessment Respiratory: Significantly diminished breath sounds with minimal end expiratory wheeze; u nchanged over the past 24 hours abdomen: Without tenderness Extremities: without Edema DIAGNOSTIC STUDIES: Available data and images were reviewed personally. Significant results and findings are a ddressed here or in the Assessment and Plan. Lab Results Component Value Date HGB 8.4 (L) 11/20/2019 HCT 27.3 (L) 11/20/2019 PLT 168 11/20/2019 WBC 10.9 11/20/2019 Lab Results Component Value Date NA 142 11/20/2019 K 3.9 11/20/2019 CL 106 11/20/2019 CO2 31 11/20/2019 CREA 0.95 11/20/2019 BUN 22 11/20/2019 MG 2.1 11/19/2019 CRP 39.60 (H) 11/18/2019 ESR 4 06/06/2019 BNP 487 (H) 11/18/2019 Glucose, POC Date/Time Value Ref Range Status 06/12/2019 12:06 PM 104 70 - 109 mg/dL Final 06/11/2019 09:05 PM 172 (H) 70 - 109 mg/dL Final 06/11/2019 04:58 PM 230 (H) 70 - 109 mg/dL Final Glucose, POC Date/Time Value Ref Range Status 06/12/2019 12:06 PM 104 70 - 109 mg/dL Final 06/11/2019 09:05 PM 172 (H) 70 - 109 mg/dL Final 06/11/2019 04:58 PM 230 (H) 70 - 109 mg/dL Final Xr Chest Pa And Lateral Result Date: 11/20/2019 XR CHEST PA AND LATERAL 11/20/2019 6:20 AM HISTORY: influenza with copd exacerbation. COMPAR GENA: 11/18/2019 Findings: No evidence of pneumothorax. Question a trace pleural effusion wit h adjacent atelectasis. Prominence of the central bronchovascular markings. Prominent aortic calcifications. Heart is normal in size. Evidence of prior cardiac valve replacement. No ac [place] osseous findings. Prominence of the central bronchovascular/interstitial markings concerning for mild diffuse pulmonary inflammation/infection. Trace right base pleural effusion or pleural thickening w ith adjacent atelectasis. Hyperexpanded lungs with background of COPD changes. Dictated and Signed by: Bartolome Neff MD Electronically signed: 11/20/2019 9:40 AM Total time of approximately 25 minutes was spent with the patient and/or patient's family, and/or on the patient's floor/unit, of which more than 50% was spent counseling and/or coord ination the patient's care as outlined above. Keyur Carvajal MD 11/21/2019 3:[address] [facility] Portions of this chart may have been created with BURLESQUICEOUS voice recognition software. Occasi onal wrong-word or sound-alike substitutions may have occurred due to the inherent owen itations of voice recognition software. Please read the chart carefully and recognize, using context, where these substitutions have occurred Keyur Vaz MD - 0 11/20/2019 4:20 PM PST [facility] Hospitalist Progress Note Ángela Crowley is a 89 y.o. female ASSESSMENT and PLAN: Active Hospital Problems Influenza A Significantly improved compared with yesterday. Reports improving cough and is not having significant mucus production. Currently comfortable on 3 L nasal cannula with O2 saturation s of 93 to 96%. COPD exacerbation Given infectious nature of illness a moderate dose of steroids is given tolerating 20 mg ev janae 8 hours of Solu-Medrol. This with bronchodilators. Follow-up chest x-ray shows typical appearance of influenza without lobar infiltrates or fluid overload. Will change steroids to prednisone 40 mg daily starting tomorrow a.m. History of chronic intermittent GI blood loss And has had transfusions in the past and has not tolerated more than aspirin. Given her cu rrent stress with a drop in hemoglobin we will repeat this value and continue Protonix 40 mg daily and aspirin 81 mg daily. SUBJECTIVE: Patient currently reports feel improved over the past 24 hours. Continues to be weak with more shortness of breath over baseline but reports muscle aches and feverishness is much bet ter. VITALS: Temp: 37 C (98.6 F), Pulse: 90, Resp: 22, BP: 148/75, SpO2 95 % on nasal cannula at [place] w rate 3L/min Temp Min: 36 C (96.8 F) Max: 37.3 C (99.1 F) Weight: 54.4 kg (119 lb 14.9 oz) Intake/Output Summary (Last 24 hours) at 11/20/2019 1620 Last data filed at 11/20/2019 1352 Gross per 24 hour Intake 600 ml Output 1900 ml Net -1300 ml PHYSICAL EXAM: Cardiovascular: Regular rate and rhythm with a quiet 1-2 over 6 right upper sternal border murmur Respiratory: Diminished breath sounds with minimal end expiratory wheeze; unchanged over the past 24 hours abdomen: Without tenderness Extremities: without Edema DIAGNOSTIC STUDIES: Available data and images were reviewed personally. Significant results and findings are a ddressed here or in the Assessment and Plan. Lab Results Component Value Date HGB 8.4 (L) 11/19/2019 HCT 27.0 (L) 11/19/2019 PLT 173 11/19/2019 WBC 9.3 11/19/2019 Lab Results Component Value Date NA 146 (H) 11/19/2019 K 3.6 11/19/2019 CL 111 (H) 11/19/2019 CO2 31 11/19/2019 CREA 0.65 11/19/2019 BUN 23 11/19/2019 MG 2.1 11/19/2019 CRP 39.60 (H) 11/18/2019 ESR 4 06/06/2019 BNP 487 (H) 11/18/2019 Glucose, POC Date/Time Value Ref Range Status 06/12/2019 12:06 PM 104 70 - 109 mg/dL Final 06/11/2019 09:05 PM 172 (H) 70 - 109 mg/dL Final 06/11/2019 04:58 PM 230 (H) 70 - 109 mg/dL Final Glucose, POC Date/Time Value Ref Range Status 06/12/2019 12:06 PM 104 70 - 109 mg/dL Final 06/11/2019 09:05 PM 172 (H) 70 - 109 mg/dL Final 06/11/2019 04:58 PM 230 (H) 70 - 109 mg/dL Final Xr Chest Pa And Lateral Result Date: 11/20/2019 XR CHEST PA AND LATERAL 11/20/2019 6:20 AM HISTORY: influenza with copd exacerbation. COMPAR GENA: 11/18/2019 Findings: No evidence of pneumothorax. Question a trace pleural effusion wit h adjacent atelectasis. Prominence of the central bronchovascular markings. Prominent aortic calcifications. Heart is normal in size. Evidence of prior cardiac valve replacement. No ac [place] osseous findings. Prominence of the central bronchovascular/interstitial markings concerning for mild diffuse pulmonary inflammation/infection. Trace right base pleural effusion or pleural thickening w ith adjacent atelectasis. Hyperexpanded lungs with background of COPD changes. Dictated and Signed by: Bartolome Neff MD Electronically signed: 11/20/2019 9:40 AM Total time of approximately 25 minutes was spent with the patient and/or patient's family, and/or on the patient's floor/unit, of which more than 50% was spent counseling and/or coord ination the patient's care as outlined above. Keyur Carvajal MD 11/20/2019 4:[address] [facility] Portions of this chart may have been created with BURLESQUICEOUS voice recognition software. Occasi onal wrong-word or sound-alike substitutions may have occurred due to the inherent owen itations of voice recognition software. Please read the chart carefully and recognize, using context, where these substitutions have occurred Shaista Pettit Phar macy Resident - 11/20/2019 6:59 AM PSTFormatting of this note might be different from the o riginal. PHARMACY SERVICES: ADMISSION MEDICATION REVIEW Ángela Crowley is a 89 y.o. female admitted on 11/18/2019. Patient is not a reliable historian. Location of Patient when reviewed: MEDICAL FLOOR Patient s prior to admit medication and over the counter (OTC) medications/herbal supplem ents list obtained from: X Verbal interview with son Yadiel who is a reliable historian (this person manages medications) X Patient not interviewed or unable to supply information due to: AMS X Pharmacy list names: [facility] ([facility]) X [employer] insurance reported information X Outside Information Vaccines up to date? 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/Frequency change: SEARCH PLANNER Medication: Prior to Admission Sig: Correct Dosage/Form: Correct Sig: Calcium carbonate PO Take 1000 mg by mouth daily Calcium carbonate 500 mg chew tab Take 2 t ablets by mouth nightly Cholecalciferol (Vitamin D) PO Take 600 units by mouth every morning Cholecalciferol 1000 u nits tablet Take 1 tablet by mouth daily Cranberry concentrate PO Take 15,000 mg by mouth daily Cranberry concentrate 600 mg tablet Take 1 tablet by mouth daily Docusate sodium 250 mg capsule Take 1 capsule by mouth every morning Take 2 capsules by mo uth every morning Medication added: Medication: Prior to Admission Sig: Sodium Chloride (Cuming) 0.65 % nasal spray 2 sprays by each nare daily as needed for nasal dryness Escitalopram 5 mg tablet Take 1 tablet by mouth daily Removed therapy: Medication: Prior to Admission Sig: Reason for Removal: Albuterol-Ipratropium 2.5-0.5 mg 3 ml solution Take 3 mls by nebulization 4 times daily as needed for 90 days Therapy complete Calcium Carbonate 750 mg chew tab Take 2 tablets by mouth daily as needed for heartburn The rapy complete Ondansetron 4 mg odt Take 1 tablet by mouth every 8 hours as needed for nausea Duplicate Sodium Chloride flush 0.9 % Inject 10 mls into the vein 2 times daily Therapy complete Recreational Substances, Tobacco & Alcohol use/frequency: Patient's son states patient does not use Recreational substances, Tobacco, and/or Alcohol Other: Medication: Prior to Admission Sig: Patient taking differently SEARCH PLANNER as: Albuterol 90 mcg inhaler Inhale 2 puffs into the lungs every 4 hours as needed for wheezing Patient's son states patient uses 3 times daily and uses with Budesonide Bisacodyl 5 mg tablet Take 1 tablet by mouth daily Patient's son states patient uses as nee ded Brimonidine 0.2 % opth marcelino Place 1 drop into both eyes 2 times daily Patient's son states p atient uses only in the AM Budesonide 0.5 mg per 2 ml nebulizer marcelino Take 2 mls by nebulization 2 times daily Patient's son states patient is using 3 times daily with Albuterol Buspirone 15 mg tablet Take 1 tablet by mouth 3 times daily as needed Patient's son states patient is not taking, he states he thinks this was replaced by Escitalopram Estradiol 0.1 mg vaginal cream Apply 1 gram to vagina daily for 2 weeks then 1 gram once we ekly Patient's son states she stopped taking last week Hydrocodone-Acetaminophen 5-325 mg tablet Take 1 to 2 tablets by mouth every 6 hours as nee ded for pain Patient's son states patient is not taking, however last fill 11/12/19 #12 Medications that patient's son states patient is taking, but he could NOT recall strength Famotidine 40 mg: Take 1 tablet by mouth nightly Atorvastatin 20 mg tablet: Take 1 tablet by mouth every morning Best possible SEARCH PLANNER medication list after pharmacy review: PT REPORTED TAKING NOT TAKING Medication Sig Last Dose Dispense Doc. Provider acetaminophen (TYLENOL) 325 mg tablet Take 2 tablets by mouth every 6 hours as needed for Pain (or fever >= 38.6 C (101.5 F)). Taking 120 tablet Sam Valladares MD albuterol (VENTOLIN HFA) 90 mcg/puff inhaler Inhale 2 puffs into the lungs every 4 hours a s needed for Wheezing. Taking Differently Historical Provider, aspirin 81 mg chewable tablet Take 1 tablet by mouth Daily. Taking 30 tablet Candido Link MD atorvaSTATin (LIPITOR) 20 mg tablet Take 1 tablet by mouth every morning. Taking 90 tablet Candido Link MD bacitracin 500 UNIT/GM ointment Apply 1 Application topically 2 times daily. To bedsore on buttocks Taking Alfredo Arciniega MD bisacodyl (DULCOLAX) 5 mg EC tablet Take 5 mg by mouth Daily. Taking Differently [facility] brimonidine (ALPHAGAN) 0.2% ophthalmic solution Place 1 drop into both eyes 2 times daily. Taking Differently Anup Donohue MD budesonide (PULMICORT) 0.5 mg/2 mL nebulizer solution Take 2 mLs by nebulization 2 times d aily. Dx Code J44.90 Taking Differently 180 mL Candido Link MD busPIRone (BUSPAR) 15 mg tablet Take 1 tablet by mouth 3 times daily as needed. Patient no t taking: Reported on 11/19/2019 Not Taking 90 tablet Candido Link MD calcium carbonate (TUMS) 500 mg chewable tablet Chew and swallow 2 tablets nightly. Hist orical ProviderMD carvedilol (COREG) 6.25 mg tablet Take 6.25 mg by mouth 2 times daily (with breakfast & di nner). Taking [facility] cholecalciferol (VITAMIN D-3) 25 mcg (1,000 units) tablet Take 1,000 Units by mouth Daily. Taking Historical MD Demian Cranberry 600 MG TABS Take 1 tablet by mouth Daily. Taking Historical ProviderMD dicyclomine (BENTYL) 10 mg capsule Take 1 capsule by mouth Daily as needed for Other (As n eeded for abdominal cramps). Taking 30 capsule Keyur Carvajal MD docusate sodium (COLACE) 250 MG capsule Take 500 mg by mouth every morning. Hold for loose stools Taking Alfredo Arciniega MD dorzolamide (TRUSOPT) 2% ophthalmic solution Place 1 drop into both eyes 2 times daily. Ta king Anup Donohue MD EQ ALLERGY RELIEF, CETIRIZINE, 10 MG tablet TAKE 1 TABLET BY MOUTH ONCE DAILY Taking 30 ta blet Candido Link MD escitalopram (LEXAPRO) 5 MG tablet Take 5 mg by mouth Daily. Taking Historical ProviderMD estradiol (ESTRACE VAGINAL) 0.1 mg/g vaginal cream Apply 1 gm to vagina daily x 2 weeks th en 1gm once weekly Patient not taking: Reported on 11/19/2019 Not Taking 42.5 g Jag Anthony MD famotidine (PEPCID) 40 MG tablet Take 1 tablet by mouth nightly. Taking 90 tablet Haley Link MD ferrous sulfate 325 mg tablet Take 1 tablet by mouth daily (with breakfast). Taking 90 tab let Candido Link MD fluticasone (FLONASE) 50 mcg/nasal spray 1 spray by Nasal route Daily as needed for Allerg ies. Taking Historical ProviderMD furosemide (LASIX) 20 mg tablet Take 1 tablet by mouth Daily. Taking 90 tablet Funmilayo Link MD HYDROcodone-acetaminophen (NORCO) 5-325 mg per tablet Take 1-2 tablets by mouth every 6 ho urs as needed for Pain. Patient not taking: Reported on 11/19/2019 Not Taking 12 tablet Zane Jade MD HYDROcodone-acetaminophen (NORCO) 7.5-325 mg per tablet Take 1 tablet by mouth every 6 samantha rs as needed for Pain. Taking 120 tablet Candido Link MD ketoconazole (NIZORAL) 2% cream Apply topically 2 times daily. Taking 30 g Candido Gupta MD latanoprost (XALATAN) 0.005% ophthalmic solution Place 1 drop into both eyes nightly. Jami Donohue MD metoprolol succinate (TOPROL-XL) 25 mg 24 hr tablet Take 1 tablet by mouth nightly. Taking 90 tablet Candido Link MD Multiple Vitamins-Minerals (PRESERVISION AREDS 2) CAPS Take 1 capsule by mouth 2 times millie ly. Taking [facility] nitroglycerin (NITROSTAT) 0.[address] 0.4 mg under the tongue every 5 minutes a s needed for Chest pain. Taking Historical ProviderMD ondansetron (ZOFRAN ODT) 4 mg disintegrating tablet Take 1 tablet by mouth every 6 hours a s needed for Nausea. Taking 15 tablet Mir Lux MD oxygen Inhale 3 L into the lungs continuous. ALETHEA: 99 months. 1 Container Candido Munson MD pantoprazole (PROTONIX) 40 mg tablet Take 1 tablet by mouth every morning (before breakfas t). Taking 90 tablet Candido Link MD Polyethylene Glycol 3350 POWD Take 17 g by mouth Daily as needed for Constipation. Taking Historical ProviderMD polyvinyl alcohol (LIQUITEARS) 1.4% ophthalmic solution Place 2 drops into both eyes every morning. Taking Historical Provider, predniSONE (DELTASONE) 10 mg tablet Take 10 mg by mouth Daily. Taking Historical Provider , prochlorperazine 10 mg tablet Take 1 tablet by mouth every 8 hours as needed. Taking 30 ta blet Mir Lux MD Respiratory Therapy Supplies MISC Replacement O2 mask. Please evaluate and provide an O2 m ask that is more useful to the patient. 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 Taki ng 14 tablet Keyur Carvajal MD sodium chloride (OCEAN) 0.65% nasal spray 2 sprays by Each Nare route Daily as needed for Nasal Dryness. Taking Historical ProviderMD UNABLE TO FIND Adult Pull ups, medium size 100 each Candido Link MD Medication review performed and electronically signed by Gayatri Aldana, Help Desk Coordinator 11/19/2019 4:52 PM Shaista Flores, Rn Private Duty 11/20/2019 6:49 AM Keyur Vaz MD - 11/19/2019 6:44 PM PSTF ormatting of this note might be different from the original. [facility] PMG Hospitalist Progress Note Ángela Crowley is a 89 y.o. female ASSESSMENT and PLAN: Active Hospital Problems Influenza A Significantly improved compared with yesterday. Does report cough but is not having signif icant mucus production. Currently comfortable on 3 L nasal cannula with O2 saturations of 9 7 to 99%. COPD exacerbation Given infectious nature of illness a moderate dose of steroids is given tolerating 20 mg ev janae 8 hours of Solu-Medrol. This with bronchodilators. Follow-up chest x-ray in the a.m. o r infiltrate is not evolving. SUBJECTIVE: Patient currently reports feeling much improved over the past 24 hours. She continues to f eel cold and states that her she is more achy. VITALS: Temp: 36.2 C (97.2 F), Pulse: 105, Resp: 18, BP: 159/73, SpO2 97 % on nasal cannula at flow rate 3L/min Temp Min: 36.2 C (97.2 F) Max: 37.4 C (99.4 F) Weight: 54.4 kg (119 lb 14.9 oz) Intake/Output Summary (Last 24 hours) at 11/19/2019 1844 Last data filed at 11/19/2019 1344 Gross per 24 hour Intake 615 ml Output 1750 ml Net -1135 ml PHYSICAL EXAM: Cardiovascular: Regular rate and rhythm with a quiet 1-2 over 6 right upper sternal border murmur Respiratory: Diminished breath sounds with minimal end expiratory wheeze abdomen: Without tenderness Extremities: without Edema DIAGNOSTIC STUDIES: Available data and images were reviewed personally. Significant results and findings are a ddressed here or in the Assessment and Plan. Lab Results Component Value Date HGB 8.4 (L) 11/19/2019 HCT 27.0 (L) 11/19/2019 PLT 173 11/19/2019 WBC 9.3 11/19/2019 Lab Results Component Value Date NA 146 (H) 11/19/2019 K 3.6 11/19/2019 CL 111 (H) 11/19/2019 CO2 31 11/19/2019 CREA 0.65 11/19/2019 BUN 23 11/19/2019 MG 2.1 11/19/2019 CRP 39.60 (H) 11/18/2019 ESR 4 06/06/2019 BNP 487 (H) 11/18/2019 Glucose, POC Date/Time Value Ref Range Status 06/12/2019 12:06 PM 104 70 - 109 mg/dL Final 06/11/2019 09:05 PM 172 (H) 70 - 109 mg/dL Final 06/11/2019 04:58 PM 230 (H) 70 - 109 mg/dL Final Glucose, POC Date/Time Value Ref Range Status 06/12/2019 12:06 PM 104 70 - 109 mg/dL Final 06/11/2019 09:05 PM 172 (H) 70 - 109 mg/dL Final 06/11/2019 04:58 PM 230 (H) 70 - 109 mg/dL Final Xr Chest Ap Portable Result Date: 11/18/2019 XR CHEST AP PORTABLE 11/18/2019 1:40 AM HISTORY: SHORTNESS OF BREATH. COMPARISON: 09/06/2019 Findings:. The heart is borderline enlarged. Prominence of the central bronchovascular ashlie ngs which are slightly indistinct. Aortic calcifications are seen. No evidence of pneumothor ax or pleural effusion. No acute osseous findings. Multilevel thoracic spondylosis. Mild enlargement of the heart with thickening and prominent central bronchovascular marking s suggestive of pulmonary vascular congestion or subtle pulmonary inflammation/infection. Di ctated and Signed by: Bartolome Neff MD Electronically signed: 11/18/2019 8:51 AM Total time of approximately 25 minutes was spent with the patient and/or patient's family, and/or on the patient's floor/unit, of which more than 50% was spent counseling and/or coord ination the patient's care as outlined above. Keyur Carvajal MD 11/19/2019 6:[address] [facility] Portions of this chart may have been created with BURLESQUICEOUS voice recognition software. Occasi onal wrong-word or sound-alike substitutions may have occurred due to the inherent owen itations of voice recognition software. Please read the chart carefully and recognize, using context, where these substitutions have occurred Ryan Donovan RN - 11/19/2019 4:54 PM PSTDiscussed with patient the benefit of HH visits to her home. Patient states that she has had HH in the past and does not feel as though she would like t o pursue admission. Bryanna amaya RN - 11/19/2019 4:32 PM PSTPt a/o x3, free from falls and SBA. Son izaiah t in glasses and hearing aid battery, still very [place]. Agitated with bed alarm, I advised amy t this is for pt safety and cannot be removed. [place] foam placed on cocyx. VSS. Report given to relief RN. eyur Carvajal MD - 11/18/2019 7:05 PM PSTHospitalist follow-up Patient admitted early this morning. She was reassessed and currently is doing well in ter ms of oxygenation. She does continue to feel poorly with respect to flulike symptoms. Lung s otherwise remarkable for mild wheeze. Will reduce Solu-Medrol to 20 mg IV every 8 hours.E lectronically signed by Keyur Carvajal MD at 11/18/2019 7:06 PM Rosio Reece RN - 10:15 AM PSTFollowing Infusion Nurses Society standards of care; 18 gauge 8 length B CANDICE PowerGlide Pro midline catheter placed x 1 stick with ultrasound guidance. Catheter inse rted to 7cm with 1 cm external. Draws bright red blood briskly, flushes easily with normal s will. Sterile dressing applied. Report to FUNMILAYO Vaughn who continues care. Electronically signed by: Rosio Macias RN 11/18/2019 1:41 PM Rosio Saha, PharmD - 11/18/2019 5:17 AM PST RENAL DOSE ADJUSTMENT PER PHARMACY PROTOCOL: Subjective/Objective: Ángela Crowley is a 89 y.o. year old female admitted on 11/18/2019 1:00 AM and is rece iving famotidine BP 137/73 | Pulse 96 | Temp 37.1 C (98.8 F) (Oral) | Resp 21 | Ht 1.575 m (5' 2") | Wt 52 kg (114 lb 10.2 oz) | SpO2 100% | BMI 20.97 kg/m No intake or output data in the 24 hours ending 11/18/19 0517 Recent Labs Lab 11/18/19 0128 CREA 0.68 Estimated Creatinine Clearance: 44 mL/min (based on SCr of 0.68 mg/dL). Date Day of therapy Creatinine CrCl (mL/min) Dose-current Dose-new 11/18/19 1 0.68 44 40 mg q24hr 20 mg q24hr Assessment/Plan: 1. For creatinine clearance < 50 mL/min, decrease dose by 50%. 2. Pharmacy will continue to follow and adjust dose as appropriate to clinical condition an d creatinine clearance changes RENAL DOSE ADJUSTMENT PROTOCOL Electronically signed by: Rosio Elizabeth, PharmD 11/18/2019 5:17 AM documented in this encounter Plan of Treatment +--------+ + + + + | Date | Type | Specialty | Care Team | Description | +--------+ + + + + | 03/23/ | Office | Anticoagulation | García Harris, | | 2019 | Visit | | [facility] | | | | | | [place] | | | | | | [id number] | | | | | | | | +--------+ + + + + | 04/11/ | Appointment | Radiology | Shawn Michael | | | 2020 | | | MD [address] | | | | | | [address] [place] | | | | | | [place] [address] | | | | | | [phone] | | | | | | | | +--------+ + + + + | 04/13/ | Office | Cardiology | Shawn Michael | | | 2020 | Visit | | MD [address] | | | | | | [address] [place] | | | | | | [place] [address] | | | | | | [phone] | | | | | | | | +--------+ + + + + + +------+--------+ + + | Name | Type | Priori | Associated Diagnoses | Date/Time | | | | ty | | | + +------+--------+ + + | ED INFORMATION | MICHAEL | Routin | | 11/18/2019 1:00 AM | | EXCHANGE | | e | | PST | + +------+--------+ + + + + +--------+ + + | Name | Type | Priori | Associated Diagnoses | Order Schedule | | | | ty | | | + + +--------+ + + | Referral to Home | Outpatient | Routin | COPD exacerbation | Ordered: 11/23/2019 | | Health - OUTPATIENT | Referral | e | (HCC) Acute on | | | | | | chronic heart | | | | | | failure, unspecified | | | | | | heart failure type | | | | | | (HCC) | | + + +--------+ + + documented as of this encounter Procedures + +--------+ + + + | Procedure Name | Priori | Date/Time | Associated Diagnosis | Comments | | | ty | | | | + +--------+ + + + | CBC WITH | Routin | 11/24/2019 | | Results for this | | DIFFERENTIAL | e | 5:09 AM | | procedure are in the | | | | PST | | results section. | + +--------+ + + + | B TYPE NATRIURETIC | Routin | 11/24/2019 | | Results for this | | PEPTIDE | e | 5:09 AM | | procedure are in the | | | | PST | | results section. | + +--------+ + + + | MAGNESIUM | Routin | 11/24/2019 | | Results for this | | | e | 5:09 AM | | procedure are in the | | | | PST | | results section. | + +--------+ + + + | BASIC METABOLIC | Routin | 11/24/2019 | | Results for this | | PANEL | e | 5:09 AM | | procedure are in the | | | | PST | | results section. | + +--------+ + + + | CULTURE, | Routin | 11/24/2019 | | Results for this | | RESPIRATORY, LOWER, | e | 12:14 AM | | procedure are in the | | SMEAR | | PST | | results section. | + +--------+ + + + | TROPONIN I | Routin | 11/23/2019 | | Results for this | | | e | 12:03 PM | | procedure are in the | | | | PST | | results section. | + +--------+ + + + | XR CHEST AP PORTABLE | Routin | 11/23/2019 | | Results for this | | | e | 9:11 AM | | procedure are in the | | | | PST | | results section. | + +--------+ + + + | ECG 12 LEAD | Routin | 11/23/2019 | | Results for this | | | e | 8:50 AM | | procedure are in the | | | | PST | | results section. | + +--------+ + + + | PROCALCITONIN, SERUM | Routin | 11/23/2019 | | Results for this | | | e | 4:58 AM | | procedure are in the | | | | PST | | results section. | + +--------+ + + + | TROPONIN I | Routin | 11/23/2019 | | Results for this | | | e | 4:58 AM | | procedure are in the | | | | PST | | results section. | + +--------+ + + + | CBC WITH | Routin | 11/23/2019 | | Results for this | | DIFFERENTIAL | e | 4:58 AM | | procedure are in the | | | | PST | | results section. | + +--------+ + + + | B TYPE NATRIURETIC | Routin | 11/23/2019 | | Results for this | | PEPTIDE | e | 4:58 AM | | procedure are in the | | | | PST | | results section. | + +--------+ + + + | BASIC METABOLIC | Routin | 11/23/2019 | | Results for this | | PANEL | e | 4:58 AM | | procedure are in the | | | | PST | | results section. | + +--------+ + + + | EXTRA BLOOD BANK | Routin | 11/23/2019 | | Results for this | | TUBE | e | 1:03 AM | | procedure are in the | | | | PST | | results section. | + +--------+ + + + | PROCALCITONIN, SERUM | STAT | 11/22/2019 | | Results for this | | | | 8:45 PM | | procedure are in the | | | | PST | | results section. | + +--------+ + + + | CBC WITH | STAT | 11/22/2019 | | Results for this | | DIFFERENTIAL | | 8:45 PM | | procedure are in the | | | | PST | | results section. | + +--------+ + + + | XR CHEST PA AND | Routin | 11/22/2019 | | Results for this | | LATERAL | e | 9:23 AM | | procedure are in the | | | | PST | | results section. | + +--------+ + + + | CBC WITH | Routin | 11/22/2019 | | Results for this | | DIFFERENTIAL | e | 4:55 AM | | procedure are in the | | | | PST | | results section. | + +--------+ + + + | B TYPE NATRIURETIC | Routin | 11/22/2019 | | Results for this | | PEPTIDE | e | 4:55 AM | | procedure are in the | | | | PST | | results section. | + +--------+ + + + | COMPREHENSIVE | Routin | 11/22/2019 | | Results for this | | METABOLIC PANEL | e | 4:55 AM | | procedure are in the | | | | PST | | results section. | + +--------+ + + + | ECG 12 LEAD | Routin | 11/21/2019 | | Results for this | | | e | 3:18 PM | | procedure are in the | | | | PST | | results section. | + +--------+ + + + | CBC WITH | Routin | 11/20/2019 | | Results for this | | DIFFERENTIAL | e | 4:58 PM | | procedure are in the | | | | PST | | results section. | + +--------+ + + + | EXTRA BLOOD BANK | Routin | 11/20/2019 | | Results for this | | TUBE | e | 4:58 PM | | procedure are in the | | | | PST | | results section. | + +--------+ + + + | BASIC METABOLIC | Routin | 11/20/2019 | | Results for this | | PANEL | e | 4:58 PM | | procedure are in the | | | | PST | | results section. | + +--------+ + + + | XR CHEST PA AND | Routin | 11/20/2019 | | Results for this | | LATERAL | e | 6:21 AM | | procedure are in the | | | | PST | | results section. | + +--------+ + + + | CBC WITH | Routin | 11/19/2019 | | Results for this | | DIFFERENTIAL | e | 4:02 AM | | procedure are in the | | | | PST | | results section. | + +--------+ + + + | MAGNESIUM | Routin | 11/19/2019 | | Results for this | | | e | 4:02 AM | | procedure are in the | | | | PST | | results section. | + +--------+ + + + | BASIC METABOLIC | Routin | 11/19/2019 | | Results for this | | PANEL | e | 4:02 AM | | procedure are in the | | | | PST | | results section. | + +--------+ + + + | TROPONIN I | Routin | 11/18/2019 | | Results for this | | | e | 1:55 PM | | procedure are in the | | | | PST | | results section. | + +--------+ + + + | RESPIRATORY THERAPY | Routin | 11/18/2019 | | | | COMMUNICATION | e | 8:06 AM | | | | | | PST | | | + +--------+ + + + | TROPONIN I | Routin | 11/18/2019 | | Results for this | | | e | 7:59 AM | | procedure are in the | | | | PST | | results section. | + +--------+ + + + | URINALYSIS WITH | Routin | 11/18/2019 | | Results for this | | MICROSCOPIC WITH | e | 6:34 AM | | procedure are in the | | CULTURE IF INDICATED | | PST | | results section. | + +--------+ + + + | CULTURE, URINE | Routin | 11/18/2019 | | Results for this | | | e | 6:34 AM | | procedure are in the | | | | PST | | results section. | + +--------+ + + + | CULTURE, MRSA | Routin | 11/18/2019 | | Results for this | | | e | 4:41 AM | | procedure are in the | | | | PST | | results section. | + +--------+ + + + | XR CHEST AP PORTABLE | STAT | 11/18/2019 | | Results for this | | | | 1:40 AM | | procedure are in the | | | | PST | | results section. | + +--------+ + + + | INFLUENZA A AND B | STAT | 11/18/2019 | | Results for this | | RNA, NAAT | | 1:29 AM | | procedure are in the | | | | PST | | results section. | + +--------+ + + + | RESPIRATORY VIRUS | STAT | 11/18/2019 | | Results for this | | ANTIGENS PROFILE | | 1:29 AM | | procedure are in the | | | | PST | | results section. | + +--------+ + + + | PROCALCITONIN, SERUM | STAT | 11/18/2019 | | Results for this | | | | 1:28 AM | | procedure are in the | | | | PST | | results section. | + +--------+ + + + | EXTRA BLUE TOP TUBE | STAT | 11/18/2019 | | Results for this | | | | 1:28 AM | | procedure are in the | | | | PST | | results section. | + +--------+ + + + | TROPONIN I | STAT | 11/18/2019 | | Results for this | | | | 1:28 AM | | procedure are in the | | | | PST | | results section. | + +--------+ + + + | CULTURE, BLOOD | STAT | 11/18/2019 | | Results for this | | | | 1:28 AM | | procedure are in the | | | | PST | | results section. | + +--------+ + + + | CULTURE, BLOOD | STAT | 11/18/2019 | | Results for this | | | | 1:28 AM | | procedure are in the | | | | PST | | results section. | + +--------+ + + + | CBC WITH | STAT | 11/18/2019 | | Results for this | | DIFFERENTIAL | | 1:28 AM | | procedure are in the | | | | PST | | results section. | + +--------+ + + + | C-REACTIVE PROTEIN | STAT | 11/18/2019 | | Results for this | | | | 1:28 AM | | procedure are in the | | | | PST | | results section. | + +--------+ + + + | B TYPE NATRIURETIC | STAT | 11/18/2019 | | Results for this | | PEPTIDE | | 1:28 AM | | procedure are in the | | | | PST | | results section. | + +--------+ + + + | MAGNESIUM | STAT | 11/18/2019 | | Results for this | | | | 1:28 AM | | procedure are in the | | | | PST | | results section. | + +--------+ + + + | LACTIC ACID | STAT | 11/18/2019 | | Results for this | | | | 1:28 AM | | procedure are in the | | | | PST | | results section. | + +--------+ + + + | COMPREHENSIVE | STAT | 11/18/2019 | | Results for this | | METABOLIC PANEL | | 1:28 AM | | procedure are in the | | | | PST | | results section. | + +--------+ + + + | ECG 12 LEAD | STAT | 11/18/2019 | | Results for this | | | | 1:13 AM | | procedure are in the | | | | PST | | results section. | + +--------+ + + + | ED INFORMATION | Routin | 11/18/2019 | | | | EXCHANGE | e | 1:00 AM | | | | | | PST | | | + +--------+ + + + +---+--------+ | | | | | Proced | | | ure | | | Note - | | | Kobe, | | | Lab In | | | | | | Hlseve | | | n - | | | 11/18/ | | | 2020 | | | 1:01 | | | AM PST | | | | | | Format [...] | | | FICATI | | | ON?02/ | | | | | | 0 | | | 00:59? | | | CARLINE | | | , | | | ÁNGELA | | | J?MRN: | | | | | | [id number] | | | [id number] | | | riteri | | | a Met | | | Care | | | Guidel | | | ash | | | Medica | | | id 5 | | | in 12 | | | | | | Histor | | | y of | | | Sepsis | | | | | | DxSecu | | | rity | | | [...] | | | d: | | | 7/15/ | | | 9 | | | [...] | | | endati | | | on:[place] | | | son | | | [...] | | | St. | | | [place] | | | y | | | [...] | | | s | | | Histor | | | y of | | | Sepsis | | | - | | | Patien | | | t has | | | receiv | | | ed a | | | diagno | | | sis of | | | | | | Sepsis | | | from | | | an | | | acute | | | or | | | post-a | | | cute | | | settin | | | g. | | | Apply | | | approp | | | riate | | | clinic | | | al | | | planni | | | ng | | | practi | | | rebecca; | | | to | | | learn | | | more | | | visit | | | [email or web address].go | | | v/seps | | | is/cli | | | nicalt | | | ools / | | | | | | Attrib | | | uted | | | By: | | | Collec | | | tive | | | Medica | | | l / | | | Attrib | | | uted | | | On: | | | 01/02/ | | | 2020 | | | | | | [place] | | | ED | | | Dispar | | | ity | | | Measur | | | e - | | | [place] | | | has | | | [...] | | | s. | | | [place] | | | | | | Health [...] | | | By: | | | [place] | | | | | | Health | | | | | | Author | | | ity | | | (OHA) | | | / | | | Attrib | | | uted | | | On: | | | 02/05/ | | | 2020 | | | [...] | | Hospit | | | al 5 0 | | | | | | Provid | | | ence | | | [facility] | | | [facility] | | | Medica | | | l | | | Center | | | 12 0 | | | [place] | | | | | | [facility] | | | l | | | Hospit | | | al 1 0 | | | [facility] | [facility] | | | [place] | | | y | | | Hospit | | | al 1 0 | | | Total | | | 23 0 | | | Note: | | [...] | | out | | | of 25 | | | in the | | [...] | | | ncy | | | Joe | | | [...] | | | a | | | Dvtrcl | | | i of | | | lg int | | | w | | | perfor | | | ation | | | and | | | absces | | | s w/o | | | bleedi | | | ng | | | Dec 5, | | | 2019 | | [...] | | | leg, | | | init | | | encntr | | | | | | Contus | | | ion of | | | | | | scalp, | | | | | | initia | | | l | | | encoun | | | ter | | | Nov | | | 27, | | | 2019 | | | Provid | | | ence | | | [facility] | | | [facility] | | [place] | | | [place] | | | Emerge | | | ncy | | | | | | Abdomi | | | nal | | | Pain | | | | | | Sepsis | | | , | | | unspec | | | ified | | | organi | | | sm | | | Sepsis | | | , u | | | Other | | | | | | specif | | | ied | | | abnorm | | | al | | | findin | | | gs of | | | blood | | | chemis | | | try | | | | | | Dvtrcl | | | i of | | | intest | | | , part | | | unsp, | | | w/o | | | perf | | | or | | | absces | | | s w/o | | | bleed | | | Nov | | | 14, | | | 2019 | | | Provid | | | ence | | | [facility] | | [facility] | [place] | | | [place] | | | Emerge | | | ncy | | | Chest | | | | | | Pressu | | | re | | | Anemia | | | [...] ified | | | | | | Gastro | | | intest | | | inal | | | hemorr | | | hector, | | | unspec | | | ified | | | | | | Melena | | | Oct | | | 27, | | | 2019 | | | Provid | | | ence | | | [facility] | | | [facility] | | [place] | | | [place] | | | Emerge | | | ncy | | | Head | | | injury | | | | | | Fall [...] | | | ter | | | Pain | | | in | | | right | | | should | | | er | | | Pain | | | in | | | right | | | hip | | | Oct | | | 15, | | | 2019 | | | Provid | | | ence | | | [facility] | | | [facility] | | [place] | | | [place] | | | Emerge | | | ncy | | | Fever | | | (75 | | | Years | | | Old Or | | | >) | | | | | | Shortn | | | ess of | | | | | | Breath | | | | | | Sepsis | | | , | | | unspec | | | ified | | | organi | | | sm | | | Sepsis | | | , u | | | | | | Pneumo | | | tricia, | | | unspec | | | ified | | | organi | | | sm | | | Oct | | | 13, | | | 2019 | | | [facility] | | | [place] | | | Urgent | | | Care | | | [place] | | | [place] | | | Urgent | | | Care | | | Oct | | | 9, | | | 2019 | | | Provid | | | ence | | | [facility] | | | [facility] | [place] | | | [place] | | | Emerge | | | ncy | | | | | | Altere | | | d | | | Mental | | | | | | Status | | | | | | Shortn | | | ess of | | | | | | Breath | | | | | | Acute | | | upper | | | respir | | | atory | | | infect | | | ion, | | | unspec | | | ified | | | | | | Fluid | | | overlo | | | ad, | | | unspec | | | ified | | | | | | Chroni | | | c | | | obstru | | | ctive | | | pulmon | | | madison | | | diseas | | | e, | | | unspec | | | ified | | | | | | Recent [...] | | | int | | | Nov | | | 27, | | [...] | | | sm | | | Sepsis | | | , u | | | | | | Dvtrcl | | | i of | | | intest | | | , part | | | unsp, | | | w/o | | | perf | | | or | | | absces | | | s w/o | | | bleed | | | | | | Other [...] | | gs on | | | dx | | | imagin | | | g of | | | prt | | | digest | | | shemar | | | tract | | | | | | Other [...] eliza | | | | | | Dvtrcl | | | i of | | | intest | | | , part | | | unsp, | | | w/o | | | perf | | | or | | | absces | | | s w/o | | | bleed | | | | | | Athscl | | | heart | | | | | | diseas | | | e of | | | coquille | | | | | | palencia | | | ry | | | artery | | | w/o | | | ang | | | pctrs | | | | | | Depend [...] | | | sm | | | Sepsis | | | , u | | | | | | Pneumo | | | tricia, | | | unspec | | | ified | | | organi | | | sm | | | Chroni | | | c | | | obstru | | | ctive | | | pulmon | | | madison | | | diseas | | | e w | | | (acute | | | ) | | | exacer | | | bation | | | | | | Unspec [...] | | | Nondis | | | p fx | | | of | | | distal | | | | | | phalan | | | x of | | | left | | | lesser | | | | | | toe(s) | | | , init | | | | | | Unspec [...] | | | ified | | | 1 | | | 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 | | | | | | [place] | | | [place] | | | Medica | | | l | | | Surgic | | | al | | | chest | | | pain | | | | | | Chest | | | pain, | | | unspec | | | ified | | | Care | | | [...] | | | M.D. | | | Delinquency Prevention Officer | | | al | | | Medici | | | ne | | | [phone]) | | | [phone] | | | 00 | | | Curren | | | [...] | | | Wyndi | | | Primar | | | y Care | | | ([phone]) | | | | | | [phone] | | | 29 | | | Sep 1, | | | 2019 | | | - | | | Curren | | | t | | | Aimee | | | Kray | | | Other | | | (253) | | | [phone] | | | 00 | | | Curren | | | t - | | | Aimee | | | Kray | | | Case | | | or | | | Care | | | Manage | | | r | | | (253) | | | [phone] | | | 32 | | | Curren | | | t | | | GURAY, | | | M.D., | | | | | | EUGENI | | | A | | | Other | | | (253) | | | [phone] | | | 45 | | | Abhinav 1, | | | 2006 | | | - | | | [...] | | | otify/ | | | [id number] | | | 8d-77f | | | [id number]-4aee | | | -9206- | | | [id number] | | | [id number] | | | | | | PLEASE [...] | +---+--------+ documented in this encounter Results Magnesium (11/24/2019 5:09 AM PST) + +-------+ + + + | Component | Value | Ref Range | Performed | Pathologist | | | | | At | Signature | + +-------+ + + + | Magnesium | 1.9 | 1.6 - 2.6 mg/dL | [facility] | | | | | [facility] [...] + | [facility] | [address] | [place] | [phone] | | [facility] | | [address] | | | - LABORATORY | | | | + + + + + CBC with Differential (11/24/2019 5:09 AM PST) + + + + + + | Component | Value | Ref Range | Performed | Pathologist | | | | | At | Signature | + + + + + + | WBC | 12.0 (H) | 4.0 - 11.0 K/uL | [facility] | | | | [facility] | [facility] - | | | | | | LABORATORY | | + + + + + + | RBC | 2.93 (L) | 3.70 - 5.20 | [facility] | | | | | M/uL | [facility] | [facility] | | | | | C[facility] - | | | | | | LABORATORY | | + + + + + + | Hemoglobin | 8.8 (L) | 11.5 - 16.0 | [facility] | | | | | g/dL | [facility] | | | [facility] | | [facility] | | | | | | CENTER - | | | | | | LABORATORY | | + + + + + + | Hematocrit | 28.7 (L) | 34.0 - 47.0 % | [facility] | | | | | | [facility] | | | [facility] | [facility] | | | | | | CENTER - | | | | | | LABORATORY | | + + + + + + | MCV | 98.0 | 83.0 - 101.0 fL | [facility] | | | | | | [facility] | | [facility] | [facility] | | | | | | C[facility] - | | | | | | LABORATORY | | + + + + + + | MCH | 30.0 | 28.0 - 35.0 pg | [facility] [...] + + + + | RDW-CV | 15.2 (H) | <15.0 % | [facility] | [...] + + + + | Platelet | 171 | 140 - 440 K/uL | [facility] | | | Count | | | [facility] | | [facility] | | [facility] | | | | | | CENTER - | | | | | | LABORATORY | | + + + + + + | MPV | 10.6 | 6.5 - 12.4 fL | [facility] | | | | | [facility] | | | [facility] | | [facility] | | | | | | CENTER - | | | | | | LABORATORY | | + + + + + + | % | 81.4 | 45.0 - 82.0 % | [facility] | | | Neutrophils | | | [facility] | | | | | | [facility]ICAL | | | | | | CENTER - | | | | | | LABORATORY | | + + + + + + | % | 10.2 (L) | 20.0 - 45.0 % | [facility] | | | Lymphocytes | | | [facility] | | | | | | [facility] | | | | | | CENTER - | | | | | | LABORATORY | | + + + + + + | % Monocytes | 7.7 | 4.0 - 12.0 % | [facility] [...] + + + | % Basophils | 0.0 | 0.0 - 1.0 % | [facility] [...] + + + + | Absolute | 9.77 (H) | 1.80 - 8.50 | [facility] | | | Neutrophils | | K/uL | [facility] | | | [facility] | | [facility] | | | | | | CENTER - | | | | | | LABORATORY | | + + + + + + | Absolute | 1.22 | 0.60 - 3.20 | [facility] | | | Lymphocytes | | K/uL | [facility] | | | | | | [facility] | | | | | | CENTER - | | | | | | LABORATORY | | + + + + + + | Absolute | 0.92 | 0.00 - 1.00 | [facility] | | | Monocytes | | K/uL | [facility] | | | [facility] | | [facility] | | | | | | C[facility] - | | | | | | LABORATORY | | + + + + + + | Absolute | 0.03 | 0.00 - 0.40 | [facility] | | | Eosinophils | | K/uL | [facility] | | | | | | [facility] | | | | | | CENTER - | | | | | | LABORATORY | | + + + + + + | Absolute | 0.00 | 0.00 - 0.10 | [facility] | [...] | nRBC | | K/uL | [facility] | | | | | | MEDICAL [...] [address] | [place] | [phone] | | [facility] | | [address] | | | - LABORATORY | | | | + + + + + Basic Metabolic Panel (11/24/2019 5:09 AM PST) + + + + + + | [...] + + + + | K | 3.5 | 3.4 - 5.1 | [facility] | | | | | mmol/L | [facility] | | | | | | [facility] | | | | | | CENTER - | | | | | | LABORATORY | | + + + + + + | Cl | 100 | 98 - 107 mmol/L | [facility] | | | | | [facility] | | | [facility] | | [facility] | | | | | | CENTER - | | | | | | LABORATORY | | + + + + + + | CO2 | 38 (H) | 20 - 31 mmol/L | [...] + + + + | BUN | 17 | 9 - 23 mg/dL | [facility] | | | | | | [facility] | | | | | | MEDICAL | | | | | | CENTER - | | | | | | LABORATORY | | + + + + + + | Creatinine | 0.51 (L) | 0.55 - 1.02 | [facility] | | | | | mg/dL | [facility] | | | | | | MEDICAL | | | | | | CENTER - | | | | | | LABORATORY | | + + + + + + | eGFR if not | >60Comment: GLOMERULAR | >=60 | [facility] | | | | FILTRATION | mL/min/1.73m2 | [facility] | | | [place] | RATE,ESTIMATED | | MEDICAL | | | | mL/min/1.10e9Llrm than | | CENTER - | | [...] + + + + | Calcium | 8.4 (L) | 8.7 - 10.4 | [facility] | | | | | mg/dL | [facility] | | | | | | [facility] | | | | | | CENTER - | | | | | | LABORATORY | | + + + + + + | BUN/Creatin | 33.3 | | [facility] | | | ine [...] + | [facility] | [address] | [place] | [phone] | | [facility] | | [address] | | | - LABORATORY | | | | + + + + + B Type Natriuretic Peptide (11/24/2019 5:09 AM PST) + + + + + + | Component | Value | Ref Range | Performed | Pathologist | | | | | At | Signature | + + + + + + | BNP | 897 (H)Comment: New | <100 pg/mL | GTE | | | | method in use as of | | [facility] | | | | December 02, 2018. [...] + + | Performing | Address | City/State[facility] | Phone Number | | Organization | | | | + + + + + | [facility] | [address] | [place] | [phone] | | [facility] | | [address] | | | - LABORATORY | | | | + + + + + Culture, Respiratory, Lower, Smear (11/24/2019 12:14 AM PST) + + + + + + | Component | Value | Ref Range | Performed | Pathologist | | | | | At | Signature | + + + + + + | Culture | 4+ Pseudomonas putida | | [facility] | | | | | [facility] | | [facility] | | | MEDICAL | | | | | | CENTER - | | | | | | LABORATORY | | + + + + + + | Culture | 4+ Usual Respiratory | | [facility] | | | | Kylee | | [facility] | | | | | | MEDICAL | | | | | | CENTER - | | | | | | LABORATORY | | + + + + + + | Gram Stain | 4+ White Blood Cells | | [facility] | | | Result | | | [facility] | | | | | | MEDICAL | | | | | | CENTER - | | | | | | LABORATORY | | + + + + + + | Gram Stain | 2+ Epithelial cells | | [facility] | | | Result | | | [facility] | | | | | | MEDICAL | | | | | | CENTER - | | | | | | LABORATORY | | + + + + + + | Gram Stain | 4+ Gram positive cocci | | [facility] | | | Result | | | [facility] | | | | | | MEDICAL | | | | | | CENTER - | | | | | | LABORATORY | | + + + + + + | Gram Stain | 1+ Yeast | | [facility] | | | Result | | | [facility] | | | | | | MEDICAL | | | | | | CENTER - | | | | | | LABORATORY | | + + + + + + + + | Specimen | + + | Body Fluid - Coughed | | sputum specimen | | (specimen) | + + + + +--------+ + | Organism | Antibiotic | Method | Susceptibility | + + +--------+ + | Pseudomonas putida | Ceftazidime | | <=1 ug/mL: | | | | | Sensitive | + + +--------+ + | Pseudomonas putida | Ceftriaxone | | 8 ug/mL: Sensitive | + + +--------+ + | Pseudomonas putida | Ciprofloxacin | | <=0.25 ug/mL: | | | | | Sensitive | + + +--------+ + | Pseudomonas putida | Gentamicin | | <=1 ug/mL: | | | | | Sensitive | + + +--------+ + | Pseudomonas putida | Meropenem | | <=0.25 ug/mL: | | | | | Sensitive | + + +--------+ + | Pseudomonas putida | Tobramycin | | <=1 ug/mL: | | | | | Sensitive | + + +--------+ + | Pseudomonas putida | Trimethoprim + | | <=20 ug/mL: | | | Sulfamethoxazole | | Sensitive | + + +--------+ + + + + + + | Performing | Address | City/State/Zipcode | Phone Number | | Organization | | | | + + + + + | [facility] | [address] | [place] | [phone] | | [facility] | | [address] | | | - LABORATORY | | | | + + + + + Troponin I (11/23/2019 12:03 PM PST) + + + + + + | Component | Value | Ref Range | Performed | Pathologist | | | | | At | Signature | + + + + + + | Troponin I | 0.04Comment: | <0.06 ng/mL | [facility] | | | | Comment:Reference | | [facility] | | | | Ranges: 0.00-0.06 = [...] | | | | | | [employer] | | | | | [...] + | [facility] | [address] | [place], [place] | [phone] | | [facility] | | [address] | | | - LABORATORY | | | | + + + + + XR Chest AP Portable (11/23/2019 9:11 AM PST) + + | Specimen | + + | | + + + + + | Impressions | Performed At | + + + | Hyperexpanded lungs with COPD changes. Generally stable | [facility] | | thickening of the central interstitial markings/bronchovascular | | | markings suspicious for mild diffuse pulmonary inflammation/infection | | | versus pulmonary vascular congestion. Dictated and Signed by: | | | Bartolome Neff MD Electronically signed: 11/23/2019 9:32 AM | | + + + + + + | Narrative | Performed At | + + + | XR CHEST AP PORTABLE 11/23/2019 9:10 AM HISTORY: shortness of | [facility] | | breath, chest pain. COMPARISON: 11/22/2019 Findings: Heart is | | | mildly enlarged. Probably due to the central pulmonary vasculature. | | | Lungs are hyperexpanded. No evidence pneumothorax. Aortic | | | calcifications are seen. No acute osseous findings. | | + + + + + | Procedure Note | + + | Kobe, Rad Results In - 11/23/2019 9:35 AM PST XR CHEST AP PORTABLE 11/23/2019 9:10 AM | | | | HISTORY: shortness of breath, chest pain. | | | | COMPARISON: 11/22/2019 | | | | Findings: Heart is mildly enlarged. Probably due to the central pulmonary | | vasculature. Lungs are hyperexpanded. No evidence pneumothorax. Aortic | | calcifications are seen. No acute osseous findings. | | | | IMPRESSION: | | Hyperexpanded lungs with COPD changes. | | | | Generally stable thickening of the central interstitial markings/bronchovascular | | markings suspicious for mild diffuse pulmonary inflammation/infection versus | | pulmonary vascular congestion. | | | | Dictated and Signed by: Bartolome Neff MD | | Electronically signed: 11/23/2019 9:32 AM | + + + +---------+ + + | Performing | Address | City/State/Zipcode | Phone Number | | Organization | | | | + +---------+ + + | [facility] | | | | + +---------+ + + ECG 12 lead (11/23/2019 8:50 AM PST) + + + + + + | Component | Value | Ref Range | Performed | Pathologist | | | | | At | Signature | + + + + + + | VENTRICULAR | 105 | BPM | [facility] | | | RATE EKG | | | | | + + + + + + | ATRIAL RATE | 105 | BPM | [facility] | | + + + + + + | P-R | 136 | ms | [facility] | | | INTERVAL | | | | | + + + + + + | QRS | 78 | ms | [facility] | | | DURATION | | | | | + + + + + + | Q-T | 324 | ms | [facility] | | | INTERVAL | | | | | + + + + + + | Q-T | 428 | ms | [facility] | | | INTERVAL | | | | | | (CORRECTED) | | | | | + + + + + + | P WAVE AXIS | 68 | degrees | [facility] | | + + + + + + | QRS AXIS | 60 | degrees | [facility] | | + + + + + + | T AXIS | 69 | degrees | [facility] | | + + + + + + | INTERPRETAT | Sinus tachycardiaVoltage | | [facility] | | | ION TEXT | criteria for left | | | | | | ventricular | | | | | | hypertrophyPromoinent/pe | | | | | | aked T waves:consider | | | | | | hyprekalemia, hyperacute | | | | | | T waves of ischemia or | | | | | | LVHAbnormal ECGWhen | | | | | | compared with ECG of | | | | | | 21-NOV-2019 15:18,No | | | | | | significant change was | | | | | | foundConfirmed by | | | | | | LEONIDAS CALVO MD ([id number]) | | | | | | on 11/24/2019 5:47:53 AM | | | | + + [...] | | | + +---------+ + + Troponin I (11/23/2019 4:58 AM PST) + + + + + + | Component | Value | Ref Range | Performed | Pathologist | | | | | At | Signature | + + + + + + | Troponin I | 0.04Comment: | <0.06 ng/mL | [facility] | | [...] | | | | | | [employer] | | | | | [...] + | [facility] | [address] | [place] | [phone] | | [facility] | | [address] | | | - LABORATORY | | | | + + + + + Basic Metabolic Panel (11/23/2019 4:58 AM PST) + + + + + + | Component | Value | Ref Range | Performed | Pathologist | | | | | At | Signature | + + + + + + | Na | 140 | 136 - 145 | [facility] | | | | | mmol/L | [facility] | | | | | | MEDICAL | | | | | | CENTER - | | | | | | LABORATORY | | + + + + + + | K | 3.4 | 3.4 - 5.1 | [facility] | | | | | mmol/L | [facility] | | | [facility] | | [facility] | | | | | | CENTER - | | | | | | LABORATORY | | + + + + + + | Cl | 101 | 98 - 107 mmol/L | [facility] | | | | | | [facility] | | | | | | MEDICAL | | | | | | CENTER - | | | | | | LABORATORY | | + + + + + + | CO2 | 36 (H) | 20 - 31 mmol/L | [...] + + + + | BUN | 17 | 9 - 23 mg/dL | [facility] | | | | | | [facility] | | | | | | MEDICAL | | | | | | CENTER - | | | | | | LABORATORY | | + + + + + + | Creatinine | 0.48 (L) | 0.55 - 1.02 | [facility] | [...] mL/min/1.73m2 | [facility] | | | [place] | RATE,ESTIMATED | | MEDICAL | | | | mL/min/1.60p6Fspq than | | CENTER - | | [...] + + + + | BUN/Creatin | 35.4 | | [facility] | | | ine [...] [address] | [place] | [phone] | | [facility] | | [address] | | | - LABORATORY | | | | + + + + + B Type Natriuretic Peptide (11/23/2019 4:58 AM PST) + + + + + + | Component | Value | Ref Range | Performed | Pathologist | | | | | At | Signature | + + + + + + | BNP | 1,065 (H)Comment: New | <100 pg/mL | [facility] | | | | method in use as of | | [facility] | | | | December 02, 2018. [...] [address] | [place] | [phone] | | [facility] | | [address] | | | - LABORATORY | | | | + + + + + Procalcitonin (11/23/2019 4:58 AM PST) + + + + + + | Component | Value | Ref Range | Performed | Pathologist | | | | | At | Signature | + + + + + + | Procalciton | 0.17 | <=0.50 ng/mL | [facility] | | | in | | | [facility] | | | | | | MEDICAL | | | | | | CENTER - | | | | | | LABORATORY | | + + + + + + | Comment | Comment: < 0.50 | | [facility] | | | | ng/mL:Procalcitonin | | [...] [address] | [place] | [phone] | | [facility] | | [address] | | | - LABORATORY | | | | + + + + + CBC with Differential (11/23/2019 4:58 AM PST) + + + + + + | Component | Value | Ref Range | Performed | Pathologist | | | | | At | Signature | + + + + + + | WBC | 10.3 | 4.0 - 11.0 K/uL | [facility] | | | | | | [facility] | | | | | | MEDICAL | | | | | | CENTER - | | | | | | LABORATORY | | + + + + + + | RBC | 2.84 (L) | 3.70 - 5.20 | [facility] | | | | | M/uL | [facility] | | | | | | MEDICAL | | | | | | CENTER - | | | | | | LABORATORY | | + + + + + + | Hemoglobin | 8.6 (L) | 11.5 - 16.0 | [facility] | | | | | g/dL | [facility] | | | | [...] + + + + | MCV | 99.3 | 83.0 - 101.0 fL | [facility] [...] + + + + | RDW-CV | 15.3 (H) | <15.0 % | [facility] | [...] + + + + | MPV | 10.6 | 6.5 - 12.4 fL | [facility] | | | | | | [facility] | | | | | | MEDICAL | | | | | | CENTER - | | | | | | LABORATORY | | + + + + + + | % | 82.4 (H) | 45.0 - 82.0 % | [facility] | | | Neutrophils | | | [facility] | | | | | | MEDICAL | | | | | | CENTER - | | | | | | LABORATORY | | + + + + + + | % | 10.7 (L) | 20.0 - 45.0 % | [facility] | | | Lymphocytes | | | [facility] | | | | | | MEDICAL | | | | | | CENTER - | | | | | | LABORATORY | | + + + + + + | % Monocytes | 6.0 | 4.0 - 12.0 % | [facility] [...] + + + + | Absolute | 8.50 | 1.80 - 8.50 | [facility] | | | Neutrophils | | K/uL | [facility] | | | | | | MEDICAL | | | | | | CENTER - | | | | | | LABORATORY | | + + + + + + | Absolute | 1.10 | 0.60 - 3.20 | [facility] | | | Lymphocytes | | K/uL | [facility] | | | | | | MEDICAL | | | | | | CENTER - | | | | | | LABORATORY | | + + + + + + | Absolute | 0.62 | 0.00 - 1.00 | [facility] | | | Monocytes | | K/uL | [facility] | | | | | | MEDICAL | | | | | | CENTER - | | | | | | LABORATORY | | + + + + + + | Absolute | 0.03 | 0.00 - 0.40 | [facility] | [...] | 0.00 | 0.00 - 0.01 | [facility] | | | nRBC | | K/uL [...] [address] | [place] | [phone] | | [facility] | | [address] | | | - LABORATORY | | | | + + + + + Extra Blood Bank Tube (11/23/2019 1:03 AM PST) + + + + + + | Component | Value | Ref Range | Performed | Pathologist | | | | | At | Signature | + + + + + + | Hold BB | Hold Specimen | | [facility] | | | | [...] | [address] | [place] | | | [facility] | | [address] | | | - BLOOD BANK | | | | + + + + + Procalcitonin (11/22/2019 8:45 PM PST) + + + + + + | Component | Value | Ref Range | Performed | Pathologist | | | | | At | Signature | + + + + + + | Procalciton | 0.16 | <=0.50 ng/mL | [facility] | | [...] | [address] | [place] | [phone] | | [facility] | | [address] | | | - LABORATORY | | | | + + + + + CBC with Differential (11/22/2019 8:45 PM PST) + + + + + + | Component | Value | Ref Range | Performed | Pathologist | | | | | At | Signature | + + + + + + | WBC | 9.5 | 4.0 - 11.0 K/uL | [facility] | | | | | | [facility] | | | | | | [facility] | | | | | | CENTER - | | | | | | LABORATORY | | + + + + + + | RBC | 2.66 (L) | 3.70 - 5.20 | [facility] [...] + + + + | MCV | 97.4 | 83.0 - 101.0 fL | [facility] | | | | | | [facility] | | | | | | MEDICAL | | | | | | CENTER - | | | | | | LABORATORY | | + + + + + + | MCH | 30.5 | 28.0 - 35.0 pg | [facility] | | | | | | [facility] | | | | | | MEDICAL | | | | | | CENTER - | | | | | | LABORATORY | | + + + + + + | MCHC | 31.3 (L) | 32.0 - 36.0 | [facility] | | | | | g/dL | [facility] | | | | | | MEDICAL | | | | | | CENTER - | | | | | | LABORATORY | | + + + + + + | RDW-CV | 15.2 (H) | <15.0 % | [facility] | | | | | | [facility] | | | | [...] + + + + | % | 87.9 (H) | 45.0 - 82.0 % | [...] + + + | % Monocytes | 4.6 | 4.0 - 12.0 % | [facility] [...] + + + + | Absolute | 8.38 | 1.80 - 8.50 | [facility] | | | Neutrophils | | K/uL | [facility] | | | | | | MEDICAL | | | | | | CENTER - | | | | | | LABORATORY | | + + + + + + | Absolute | 0.67 | 0.60 - 3.20 | [facility] | | | Lymphocytes | | K/uL | [facility] | | | | | | MEDICAL | | | | | | CENTER - | | | | | | LABORATORY | | + + + + + + | Absolute | 0.44 | 0.00 - 1.00 | [facility] | [...] + + + | Absolute | 0.04 (H) | 0.00 - 0.03 | [facility] [...] ST. | [address] | [place] | [phone] | | [facility] | | [address] | | | - LABORATORY | | | | + + + + + XR Chest PA and Lateral (11/22/2019 9:23 AM PST) + + | Specimen | + + | | + + + + + | Impressions | Performed At | + + + | Diffuse thickening of bilateral interstitial markings, concerning | [facility] | | for dominant inflammation/infection such as viral pneumonia or | | | bronchitis. Hyperexpanded lungs with dependent COPD changes. | | | Dictated and Signed by: Bartolome Neff MD Electronically signed: | | | 11/22/2019 10:24 AM | | + + + + + + | Narrative | Performed At | + + + | XR CHEST PA AND LATERAL 11/22/2019 7:27 AM HISTORY: influenza. | [facility] | | COMPARISON: 11/20/2019 Findings: Hyperexpanded lungs with a | | | background of COPD changes. Prior aortic valve replacement. Bilateral | | | mid and lower lung zone interstitial thickening. Aortic | | | calcifications are seen. Multilevel thoracic spondylosis. No acute | | | osseous findings. | | + + + + + | Procedure Note | + + | Kobe, Rad Results In - 11/22/2019 10:27 AM PST XR CHEST PA AND LATERAL 11/22/2019 7:27 | | AMHISTORY: influenza.COMPARISON: 11/20/2019Findings: Hyperexpanded lungs with a | | background of COPD changes. Prior aorticvalve replacement. Bilateral mid and lower lung | | zone interstitial thickening.Aortic calcifications are seen. Multilevel thoracic | | spondylosis. No acuteosseous findings.IMPRESSION: Diffuse thickening of bilateral | | interstitial markings, concerning for dominantinflammation/infection such as viral | | pneumonia or bronchitis.Hyperexpanded lungs with dependent COPD changes.Dictated and | | Signed by: Bartolome Neff MD Electronically signed: 11/22/2019 10:24 AM | |Aortic calcifications are seen. Multilevel thoracic spondylosis. No acute | |osseous findings. | | | |IMPRESSION: | |Diffuse thickening of bilateral interstitial markings, concerning for dominant | |inflammation/infection such as viral pneumonia or bronchitis. | | | |Hyperexpanded lungs with dependent COPD changes. | | | |Dictated and Signed by: Bartolome Neff MD | | Electronically signed: 11/22/2019 10:24 AM | + + + +---------+ + + | Performing | Address | City/State/Zipcode | Phone Number | | Organization | | | | + +---------+ + + | [facility] | | | | + +---------+ + + B Type Natriuretic Peptide (11/22/2019 4:55 AM PST) + + + + + + | Component | Value | Ref Range | Performed | Pathologist | | | | | At | Signature | + + + + + + | BNP | 1,228 (H)Comment: New | <100 pg/mL | [facility] | | | | method in use as of | | . [facility] | | | | December 02, [...] [address] | [place] | [phone] | | [facility] | | [address] | | | - LABORATORY | | | | + + + + + Comprehensive Metabolic Panel (11/22/2019 4:55 AM PST) + + + + + + | [...] + + + + | K | 3.9 | 3.4 - 5.1 | [facility] | | | | | mmol/L | [facility] | | | | | | MEDICAL | | | | | | CENTER - | | | | | | LABORATORY | | + + + + + + | Cl | 101 | 98 - 107 mmol/L | [facility] | | | | | | [facility] | | | | | | MEDICAL | | | | | | CENTER - | | | | | | LABORATORY | | + + + + + + | CO2 | 36 (H) | 20 - 31 mmol/L | [...] + + + + | BUN | 17 | 9 - 23 mg/dL | [facility] | | | | | | [facility] | | | | | | MEDICAL | | | | | | CENTER - | | | | | | LABORATORY | | + + + + + + | Creatinine | 0.57 | 0.55 - 1.02 | [facility] | | | | | mg/dL | [facility] | | | | | | MEDICAL | | | | | | CENTER - | | | | | | LABORATORY | | + + + + + + | eGFR if not | >60Comment: GLOMERULAR | >=60 | [facility] | | | | FILTRATION | mL/min/1.73m2 | [facility] | | | [place] | RATE,ESTIMATED | | MEDICAL | | | | mL/min/1.52l1Umeq than | | CENTER - | | [...] + + + + | Calcium | 8.5 (L) | 8.7 - 10.4 | [facility] | | | | | mg/dL | [facility] | | | | | | MEDICAL | | | | | | CENTER - | | | | | | LABORATORY | | + + + + + + | Albumin | 3.3 | 3.2 - 4.8 g/dL | [facility] | | | | | | [facility] | | | | | | MEDICAL | | | | | | CENTER - | | | | | | LABORATORY | | + + + + + + | Bilirubin | 0.4 | 0.3 - 1.2 mg/dL | [facility] | | | Total | | | [facility] | | | | | | MEDICAL | | | | | | CENTER - | | | | | | LABORATORY | | + + + + + + | Total | 5.5 (L) | 5.7 - 8.2 g/dL | [facility] | | | Protein | | | [facility] | | | | | | MEDICAL | | | | | | CENTER - | | | | | | LABORATORY | | + + + + + + | AST | 66 (H) | 0 - 34 U/L | [facility] | | | | | | [facility] | | | | | | MEDICAL | | | | | | CENTER - | | | | | | LABORATORY | | + + + + + + | ALT | 44 | 10 - 49 U/L | [facility] | | | | | | [facility] | | | | | | MEDICAL | | | | | | CENTER - | | | | | | LABORATORY | | + + + + + + | Alkaline | 126 (H) | 46 - 116 U/L | [facility] | | | Phosphatase | | | [facility] | | | | | | MEDICAL | | | | | | CENTER - | | | | | | LABORATORY | | + + + + + + | Globulin | 2.2 | 2.1 - 3.8 g/dL | [facility] | | | | | | [facility] | | | | | | MEDICAL | | | | | | CENTER - | | | | | | LABORATORY | | + + + + + + | Albumin/Sarika | 1.5 | 0.8 - 1.9 | [facility] | | | bulin Ratio | | | [facility] | | | | | | MEDICAL | | | | | | CENTER - | | | | | | LABORATORY | | + + + + + + | BUN/Creatin | 29.8 | | [facility] | | | ine [...] [address] | [place] | [phone] | | [facility] | | [address] | | | - LABORATORY | | | | + + + + + CBC with Differential (11/22/2019 4:55 AM PST) + + + + + + | Component | Value | Ref Range | Performed | Pathologist | | | | | At | Signature | + + + + + + | WBC | 16.4 (H) | 4.0 - 11.0 K/uL | [facility] | | | | | | [facility] | | | | | | MEDICAL | | | | | | CENTER - | | | | | | LABORATORY | | + + + + + + | RBC | 3.22 (L) | 3.70 - 5.20 | [facility] | | | | | M/uL | [facility] | | | | | | MEDICAL | | | | | | CENTER - | | | | | | LABORATORY | | + + + + + + | Hemoglobin | 9.7 (L) | 11.5 - 16.0 | [facility] | | | | | g/dL | [facility] | | | | | | MEDICAL | | | | | | CENTER - | | | | | | LABORATORY | | + + + + + + | Hematocrit | 32.2 (L) | 34.0 - 47.0 % | [facility] | | | | | | [facility] | | | | | | MEDICAL | | | | | | CENTER - | | | | | | LABORATORY | | + + + + + + | MCV | 100.0 | 83.0 - 101.0 fL | [facility] | | | | | | [facility] | | | | | | MEDICAL | | | | | | CENTER - | | | | | | LABORATORY | | + + + + + + | MCH | 30.1 | 28.0 - 35.0 pg | [facility] [...] + + + + | RDW-CV | 15.3 (H) | <15.0 % | [facility] | | | | | | [facility] | | | | | | MEDICAL | | | | | | CENTER - | | | | | | LABORATORY | | + + + + + + | RDW-SD | 56.8 (H) | 35.1 - 46.3 fL | [facility] | | | | | | [facility] | | | | | | MEDICAL | | | | | | CENTER - | | | | | | LABORATORY | | + + + + + + | Platelet | 199 | 140 - 440 K/uL | [facility] | | | Count | | | [facility] | | | | | | MEDICAL | | | | | | CENTER - | | | | | | LABORATORY | | + + + + + + | MPV | 10.1 | 6.5 - 12.4 fL | [facility] | | | | | | [facility] | | | | | | MEDICAL | | | | | | CENTER - | | | | | | LABORATORY | | + + + + + + | % | 85.0 (H) | 45.0 - 82.0 % | [facility] | | | Neutrophils | | | [facility] | | | | | | MEDICAL | | | | | | CENTER - | | | | | | LABORATORY | | + + + + + + | % | 6.4 (L) | 20.0 - 45.0 % | [...] + + + + | % | 0.2 | 0.0 - 5.0 % | [facility] [...] + + + + | Absolute | 13.91 (H) | 1.80 - 8.50 | [facility] | | | Neutrophils | | K/uL | [facility] | | | | | | MEDICAL | | | | | | CENTER - | | | | | | LABORATORY | | + + + + + + | Absolute | 1.05 | 0.60 - 3.20 | [facility] | | | Lymphocytes | | K/uL | [facility] | | | | | | MEDICAL | | | | | | CENTER - | | | | | | LABORATORY | | + + + + + + | Absolute | 1.29 (H) | 0.00 - 1.00 | [facility] | | | Monocytes | | K/uL | [facility] | | | | | | MEDICAL | | | | | | CENTER - | | | | | | LABORATORY | | + + + + + + | Absolute | 0.03 | 0.00 - 0.40 | [facility] | [...] + | [facility] | [address] | [place] | [phone] | | [facility] | | [address] | | | - LABORATORY | | | | + + + + + ECG 12 lead (11/21/2019 3:18 PM PST) + + + + + + | Component | Value | Ref Range | Performed | Pathologist | | | | | At | Signature | + + + + + + | VENTRICULAR | 104 | BPM | [facility] | | | RATE EKG | | | | | + + + + + + | ATRIAL RATE | 104 | BPM | [facility] | | + + + + + + | P-R | 122 | ms | [facility] | | | INTERVAL | | | | | + + + + + + | QRS | 78 | ms | [facility] | | | DURATION | | | | | + + + + + + | Q-T | 324 | ms | [facility] | | | INTERVAL | | | | | + + + + + + | Q-T | 426 | ms | [facility] | | | INTERVAL | | | | | | (CORRECTED) | | | | | + + + + + + | P WAVE AXIS | 68 | degrees | [facility] | | + + + + + + | QRS AXIS | 60 | degrees | [facility] | | + + + + + + | T AXIS | 73 | degrees | [facility] | | + + + + + + | INTERPRETAT | Sinus tachycardiaVoltage | | [facility] | | | ION TEXT | criteria for left | | | | | | ventricular | | | | | | hypertrophyProminent/pea | | | | | | ked T waves:consider | | | | | | hyperkalemia, hyperacute | | | | | | T waves of ischemia or | | | | | | LVHAbnormal ECGWhen | | | | | | compared with ECG of | | | | | | 18-NOV-2019 01:13,T wave | | | | | | amplitude has increased | | | | | | in multiple | | | | | | leadsConfirmed by | | | | | | LEONIDAS CALVO MD ([id number]) | | | | | | on 11/22/2019 6:43:20 AM | | | | + + [...] | | + +---------+ + + Extra Blood Bank Tube (11/20/2019 4:58 PM PST) + + + + + + | Component | Value | Ref Range | Performed | Pathologist | | | | | At | Signature | + + + + + + | Hold BB | Hold Specimen | | [facility] | | | | [...] St | [place] | | | [facility] | | [address] | | | - BLOOD BANK | | | | + + + + + CBC with Differential (11/20/2019 4:58 PM PST) + + + + + + | Component | Value | Ref Range | Performed | Pathologist | | | | | At | Signature | + + + + + + | WBC | 10.9 | 4.0 - 11.0 K/uL | [facility] | | | | | [...] + + + + | Hemoglobin | 8.4 (L) | 11.5 - 16.0 | [facility] | | | | | g/dL | [facility] | | | | | | MEDICAL | | | | | | CENTER - | | | | | | LABORATORY | | + + + + + + | Hematocrit | 27.3 (L) | 34.0 - 47.0 % | [facility] | | | | | | [facility] | | | | | | MEDICAL | | | | | | CENTER - | | | | | | LABORATORY | | + + + + + + | MCV | 98.9 | 83.0 - 101.0 fL | [facility] [...] + + + + | RDW-SD | 56.6 (H) | 35.1 - 46.3 fL | [facility] | | | | | | [facility] | | | | | | MEDICAL | | | | | | CENTER - | | | | | | LABORATORY | | + + + + + + | Platelet | 168 | 140 - 440 K/uL | [facility] [...] + + + + | % | 91.4 (H) | 45.0 - 82.0 % | [facility] | | | Neutrophils | | | [facility] | | | | | | MEDICAL | | | | | | CENTER - | | | | | | LABORATORY | | + + + + + + | % | 4.0 (L) | 20.0 - 45.0 % | [facility] | | | Lymphocytes | | | [facility] | | | | | | MEDICAL | | | | | | CENTER - | | | | | | LABORATORY | | + + + + + + | % Monocytes | 4.0 | 4.0 - 12.0 % | [facility] [...] + + + + | Absolute | 9.96 (H) | 1.80 - 8.50 | [facility] | | | Neutrophils | | K/uL | [facility] | | | | | | MEDICAL | | | | | | CENTER - | | | | | | LABORATORY | | + + + + + + | Absolute | 0.43 (L) | 0.60 - 3.20 | [facility] | | | Lymphocytes | | K/uL | [facility] | | | | | | MEDICAL | | | | | | CENTER - | | | | | | LABORATORY | | + + + + + + | Absolute | 0.43 | 0.00 - 1.00 | [facility] | | | Monocytes | | K/uL | [facility] | | | | | | MEDICAL | | | | | | CENTER - | | | | | | LABORATORY | | + + + + + + | Absolute | 0.01 | 0.00 - 0.40 | [facility] | [...] + + + | Absolute | 0.04 (H) | 0.00 - 0.03 | [facility] [...] + | [facility] | [address] | [place] | [phone] | | [facility] | | [address] | | | - LABORATORY | | | | + + + + + Basic Metabolic Panel (11/20/2019 4:58 PM PST) + + + + + + | [...] + + + + | K | 3.9 | 3.4 - 5.1 | [facility] | [...] + + + + | Glucose | 142 (H) | 60 - 106 mg/dL | [facility] | | | | | | [facility] | | | | | | MEDICAL | | | | | | CENTER - | | | | | | LABORATORY | | + + + + + + | BUN | 22 | 9 - 23 mg/dL | [facility] | | | | | | [facility] | | | | | | MEDICAL | | | | | | CENTER - | | | | | | LABORATORY | | + + + + + + | Creatinine | 0.95 | 0.55 - 1.02 | [facility] | | | | | mg/dL | [facility] | | | | | | MEDICAL | | | | | | CENTER - | | | | | | LABORATORY | | + + + + + + | eGFR if not | 55 (L)Comment: | >=60 | [facility] | | | | GLOMERULAR FILTRATION | mL/min/1.73m2 | [facility] | | | [place] | RATE,ESTIMATED | | MEDICAL | | | | mL/min/1.17v7Baco than | | CENTER - | | [...] + + + + | Calcium | 8.2 (L) | 8.7 - 10.4 | [facility] | | | | | mg/dL | [facility] | | | | | | MEDICAL | | | | | | CENTER - | | | | | | LABORATORY | | + + + + + + | BUN/Creatin | 23.2 | | [facility] | | | ine [...] [address] | [place] | [phone] | | [facility] | | [address] | | | - LABORATORY | | | | + + + + + XR Chest PA and Lateral (11/20/2019 6:21 AM PST) + + | Specimen | + + | | + + + + + | Impressions | Performed At | + + + | Prominence of the central bronchovascular/interstitial markings | [facility] | | concerning for mild diffuse pulmonary inflammation/infection. | | | Trace right base pleural effusion or pleural thickening with adjacent | | | atelectasis. Hyperexpanded lungs with background of COPD changes. | | | Dictated and Signed by: Bartolome Neff MD Electronically | | | signed: 11/20/2019 9:40 AM | | + + + + + + | Narrative | Performed At | + + + | XR CHEST PA AND LATERAL 11/20/2019 6:20 AM HISTORY: influenza | [facility] | | with copd exacerbation. COMPARISON: 11/18/2019 Findings: No | | | evidence of pneumothorax. Question a trace pleural effusion with | | | adjacent atelectasis. Prominence of the central bronchovascular | | | markings. Prominent aortic calcifications. Heart is normal in size. | | | Evidence of prior cardiac valve replacement. No acute osseous | | | findings. | | + + + + + | Procedure Note | + + | Kobe, Rad Results In - 11/20/2019 9:43 AM PST XR CHEST PA AND LATERAL 11/20/2019 6:20 | | AMHISTORY: influenza with copd exacerbation.COMPARISON: 11/18/2019Findings: No evidence | | of pneumothorax. Question a trace pleural effusion withadjacent atelectasis. Prominence | | of the central bronchovascular markings.Prominent aortic calcifications. Heart is normal | | in size. Evidence of priorcardiac valve replacement. No acute osseous | | findings.IMPRESSION: Prominence of the central bronchovascular/interstitial markings | | concerning formild diffuse pulmonary inflammation/infection.Trace right base pleural | | effusion or pleural thickening with adjacentatelectasis.Hyperexpanded lungs with | | background of COPD changes.Dictated and Signed by: Bartolome Neff MD Electronically | | signed: 11/20/2019 9:40 AM | | | |IMPRESSION: | |Prominence of the central bronchovascular/interstitial markings concerning for | |mild diffuse pulmonary inflammation/infection. | | | |Trace right base pleural effusion or pleural thickening with adjacent | |atelectasis. | | | |Hyperexpanded lungs with background of COPD changes. | | | |Dictated and Signed by: Bartolome Neff MD | | Electronically signed: 11/20/2019 9:40 AM | + + + +---------+ + + | Performing | Address | City/State/Zipcode | Phone Number | | Organization | | | | + +---------+ + + | [facility] | | | | + +---------+ + + Magnesium (11/19/2019 4:02 AM PST) + +-------+ + + + | Component | Value | Ref Range | Performed | Pathologist | | | | | At | Signature | + +-------+ + + + | Magnesium | 2.1 | 1.6 - 2.6 mg/dL | [facility] [...] [address] | [place] | [phone] | | [facility] | | [address] | | | - LABORATORY | | | | + + + + + Basic Metabolic Panel (11/19/2019 4:02 AM PST) + + + + + + | [...] [facility] | | | | | [facility] | | | | | [facility] | | | | | | [facility] - | | | | | | LABORATORY | | + + + + + + | Glucose | 140 (H) | 60 - 106 mg/dL | [facility] | | | | | | [facility] | | | | | | MEDICAL | | | | | | CENTER - | | | | | | LABORATORY | | + + + + + + | BUN | 23 | 9 - 23 mg/dL | [facility] | | | | | | [facility] | | | | | | MEDICAL | | | | | | CENTER - | | | | | | LABORATORY | | + + + + + + | Creatinine | 0.65 | 0.55 - 1.02 | [facility] | [...] | | | FILTRATION | mL/min/1.73m2 | [facility] | | | [place] | RATE,ESTIMATED | | MEDICAL | | | | mL/min/1.06f2Zitq than | | CENTER - | | [...] + + + + | Calcium | 8.7 | 8.7 - 10.4 | [facility] | | | | | mg/dL | [facility] | | | | | | MEDICAL | | | | | | CENTER - | | | | | | LABORATORY | | + + + + + + | BUN/Creatin | 35.4 | | [facility] | | | ine [...] [address] | [place] | [phone] | | [facility] | | [address] | | | - LABORATORY | | | | + + + + + CBC with Differential (11/19/2019 4:02 AM PST) + + + + + + | Component | Value | Ref Range | Performed | Pathologist | | | | | At | Signature | + + + + + + | WBC | 9.3 | 4.0 - 11.0 K/uL | [facility] | | | | | | [facility] | | | | | | MEDICAL | | | | | | CENTER - | | | | | | LABORATORY | | + + + + + + | RBC | 2.73 (L) | 3.70 - 5.20 | [facility] | | | | | M/uL | [facility] | | | | | | MEDICAL | | | | | | CENTER - | | | | | | LABORATORY | | + + + + + + | Hemoglobin | 8.4 (L) | 11.5 - 16.0 | [facility] [...] + + + + | MCV | 98.9 | 83.0 - 101.0 fL | [facility] | | | | | | [facility] | | | | | | MEDICAL | | | | | | CENTER - | | | | | | LABORATORY | | + + + + + + | MCH | 30.8 | 28.0 - 35.0 pg | [facility] [...] + + + + | RDW-CV | 16.2 (H) | <15.0 % | [facility] | | | | | | [facility] | | | | | | MEDICAL | | | | | | CENTER - | | | | | | LABORATORY | | + + + + + + | RDW-SD | 58.9 (H) | 35.1 - 46.3 fL | [facility] | | | | | | [facility] | | | | | | MEDICAL | | | | | | CENTER - | | | | | | LABORATORY | | + + + + + + | Platelet | 173 | 140 - 440 K/uL | [facility] | | | Count | | | [facility] | | | | | | MEDICAL | | | | | | CENTER - | | | | | | LABORATORY | | + + + + + + | MPV | 10.4 | 6.5 - 12.4 fL | [facility] | | | | | | [facility] | | | | | | MEDICAL | | | | | | CENTER - | | | | | | LABORATORY | | + + + + + + | % | 90.5 (H) | 45.0 - 82.0 % | [facility] | | | Neutrophils | | | [facility] | | | | | | MEDICAL | | | | | | CENTER - | | | | | | LABORATORY | | + + + + + + | % | 4.5 (L) | 20.0 - 45.0 % | [facility] | | | Lymphocytes | | | [facility] | | | | | | MEDICAL | | | | | | CENTER - | | | | | | LABORATORY | | + + + + + + | % Monocytes | 4.7 | 4.0 - 12.0 % | [facility] [...] + + + | % Basophils | 0.0 | 0.0 - 1.0 % | [facility] | | | | | | [facility] | | | | | | MEDICAL | | | | | | CENTER - | | | | | | LABORATORY | | + + + + + + | % Immature | 0.3 | 0.0 - 0.4 % | [facility] | | | Granulocyte | | | [facility] | | | s | | | MEDICAL | | | | | | CENTER - | | | | | | LABORATORY | | + + + + + + | Absolute | 8.45 | 1.80 - 8.50 | [facility] | | | Neutrophils | | K/uL | [facility] | | | | | | MEDICAL | | | | | | CENTER - | | | | | | LABORATORY | | + + + + + + | Absolute | 0.42 (L) | 0.60 - 3.20 | [facility] | | | Lymphocytes | | K/uL | [facility] | | | | | | MEDICAL | | | | | | CENTER - | | | | | | LABORATORY | | + + + + + + | Absolute | 0.44 | 0.00 - 1.00 | [facility] | [...] | | Eosinophils | | K/uL | [facility] | | | | | | MEDICAL | | | | | | CENTER - | | | | | | LABORATORY | | + + + + + + | Absolute | 0.00 | 0.00 - 0.10 | [facility] | | | Basophils | | K/uL | [facility] | | | | | | MEDICAL | | | | | | CENTER - | | | | | | LABORATORY | | + + + + + + | Absolute | 0.03 | 0.00 - 0.03 | [facility] | [...] [address] | [place] | [phone] | | [facility] | | [address] | | | - LABORATORY | | | | + + + + + Troponin I (11/18/2019 1:55 PM PST) + + + + + + | Component | Value | Ref Range | Performed | Pathologist | | | | | At | Signature | + + + + + + | Troponin I | 0.14 (H)Comment: | <0.06 ng/mL | [facility] | | | | Comment:Reference | | [...] | | | | | | [employer] | | | | | [...] | [address] | [place], [place] | [phone] | | [facility] | | [address] | | | - LABORATORY | | | | + + + + + Troponin I (11/18/2019 7:59 AM PST) + + + + + + | Component | Value | Ref Range | Performed | Pathologist | | | | | At | Signature | + + + + + + | Troponin I | 0.19 (H)Comment: | <0.06 ng/mL | [facility] | [...] | | | | | | [employer] | | | | | [...] [address] | [place] | [phone] | | [facility] | | [id number] | | | - LABORATORY | | | | + + + + + Culture, Urine (11/18/2019 6:34 AM PST) + + + + + + | Component | Value | Ref Range | Performed | Pathologist | | | | | At | Signature | + + + + + + | Culture | >100,000 CFU/ml | | [facility] | | | | Escherichia coli | | [facility] | | | | | | MEDICAL | | | | | | CENTER - | | | | | | LABORATORY | | + + + + + + | Culture | 50,000 CFU/ml | | [facility] | | | | Enterococcus | | [facility] | | | | faecalisComment: For | | MEDICAL | | | | Enterococci, | | CENTER - | | | | "susceptible" implies | | LABORATORY | | | | the need for high dose | | | | | | penicillin or | | | | | | ampicillin. Urinary | | | | | | tract infections are | | | | | | usually treated with | | | | | | ampicillin or penicillin | | | | | | alone. For serious | | | | | | infections, combined | | | | | | therapy with an | | | | | | aminoglycoside is | | | | | | indicated to improve | | | | | | bacteriocidal activity. | | | | | | | | | | + + + + + + + + | Specimen | + + | Urine - Urine | | specimen obtained by | | clean catch | | procedure (specimen) | + + + + +--------+ + | Organism | Antibiotic | Method | Susceptibility | + + +--------+ + | Escherichia coli | Cefazolin | | <=4 ug/mL: | | | | | Sensitive | + + +--------+ + | Escherichia coli | Cefoxitin | | <=4 ug/mL: | | | | | Sensitive | + + +--------+ + | Escherichia coli | Ceftazidime | | <=1 ug/mL: | | | | | Sensitive | + + +--------+ + | Escherichia coli | Ceftriaxone | | <=1 ug/mL: | | | | | Sensitive | + + +--------+ + | Escherichia coli | Ciprofloxacin | | <=0.25 ug/mL: | | | | | Sensitive | + + +--------+ + | Escherichia coli | Ertapenem | | <=0.5 ug/mL: | | | | | Sensitive | + + +--------+ + | Escherichia coli | Gentamicin | | <=1 ug/mL: | | | | | Sensitive | + + +--------+ + | Escherichia coli | Meropenem | | <=0.25 ug/mL: | | | | | Sensitive | + + +--------+ + | Escherichia coli | Nitrofurantoin | | <=16 ug/mL: | | | | | Sensitive | + + +--------+ + | Escherichia coli | Tobramycin | | <=1 ug/mL: | | | | | Sensitive | + + +--------+ + | Escherichia coli | Trimethoprim + | | <=20 ug/mL: | | | Sulfamethoxazole | | Sensitive | + + +--------+ + | Enterococcus | Ampicillin | | <=2 ug/mL: | | faecalis | | | Sensitive | + + +--------+ + | Enterococcus | Ciprofloxacin | | <=0.5 ug/mL: | | faecalis | | | Sensitive | + + +--------+ + | Enterococcus | Levofloxacin | | 1 ug/mL: Sensitive | | faecalis | | | | + + +--------+ + | Enterococcus | Nitrofurantoin | | <=16 ug/mL: | | faecalis | | | [...] + | [facility] | [address] | [place] | [phone] | | [facility] | | [address] | | | - LABORATORY | | | | + + + + + Urinalysis with Microscopic with Culture if Indicated (11/18/2019 6:34 AM PST) + + + + + + | Component | Value | Ref Range | Performed | Pathologist | | | | | At | Signature | + + + + + + | Color, | Yellow | Light Yellow, | [facility] | | | Urine | | Yellow, Straw | [facility] | | | | | | MEDICAL | | | | | | CENTER - | | | | | | LABORATORY | | + + + + + + | Clarity | Cloudy (A) | Clear | [facility] | | [...] + + + + | Specific | 1.015 | 1.001 - 1.030 | [facility] | | | [place], | | | [facility] | | [...] + + + + | Blood, | Small (A) | Negative | [facility] | | [...] + + + + | Nitrite, | Positive (A) | Negative | [facility] | | | Urine | | | [facility] | | | | | | MEDICAL | | | | | | CENTER - | | | | | | LABORATORY | | + + + + + + | Leukocyte | Small (A) | Negative | [facility] | | [...] + + + | White Blood | 50-100 (A) | 0 - 2 /HPF | [facility] | | | Cells, | | | [facility] | | | Urine | | | MEDICAL | | | | | | CENTER - | | | | | | LABORATORY | | + + + + + + | Red Blood | 2-5 (A) | 0 - 2 /HPF | [facility] | | | Cells, | | | [facility] | | | Urine | | | MEDICAL | | | | | | CENTER - | | | | | | LABORATORY | | + + + + + + | Squamous | 50-100 (A) | 0 - 2 /LPF | [facility] | | | Epithelial | | | [facility] | | | Cells, | | | MEDICAL | | | Urine | | | CENTER - | | | | | | LABORATORY | | + + + + + + | Bacteria, | 2+ (A) | Negative /HPF | [facility] | | | Urine | | | 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 | | | | + + + + + + + + | Specimen | + + | Tissue - Both | | anterior nares (body | | structure) | + + + + + + + | Performing | Address | City/State/Zipcode | Phone Number | | Organization | | | | + + + + + | [facility] | [address] | [place], [place] | [phone] | | [facility] | | [address] | | | - LABORATORY | | | | + + + + + XR Chest AP Portable (11/18/2019 1:40 AM PST) + + | Specimen | + + | | + + + + + | Impressions | Performed At | + + + | Mild enlargement of the heart with thickening and prominent central | [facility] | | bronchovascular markings suggestive of pulmonary vascular congestion | | | or subtle pulmonary inflammation/infection. Dictated and Signed | | | by: Bartolome Neff MD Electronically signed: 11/18/2019 8:51 AM | | + + + + + + | Narrative | Performed At | + + + | XR CHEST AP PORTABLE 11/18/2019 1:40 AM HISTORY: SHORTNESS OF | [facility] | | BREATH. COMPARISON: 09/06/2019 Findings:. The heart is | | | borderline enlarged. Prominence of the central bronchovascular | | | markings which are slightly indistinct. Aortic calcifications are | | | seen. No evidence of pneumothorax or pleural effusion. No acute | | | osseous findings. Multilevel thoracic spondylosis. | | + + + + + | Procedure Note | + + | Kobe, Rad Results In - 11/18/2019 8:54 AM PST XR CHEST AP PORTABLE 11/18/2019 1:40 AM | | | | HISTORY: SHORTNESS OF BREATH. | | | | COMPARISON: 09/06/2019 | | | | Findings:. The heart is borderline enlarged. Prominence of the central | | bronchovascular markings which are slightly indistinct. Aortic calcifications | | are seen. No evidence of pneumothorax or pleural effusion. No acute osseous | | findings. Multilevel thoracic spondylosis. | | | | IMPRESSION: | | Mild enlargement of the heart with thickening and prominent central | | bronchovascular markings suggestive of pulmonary vascular congestion or subtle | | pulmonary inflammation/infection. | | | | Dictated and Signed by: Bartolome Neff MD | | Electronically signed: 11/18/2019 8:51 AM | + + + +---------+ + + | Performing | Address | City/State/Zipcode | Phone Number | | Organization | | | | + +---------+ + + | [facility] | | | | + +---------+ + + Respiratory pathogen panel, NAAT (11/18/2019 1:29 AM PST) + + + + + + | [...] [address] | [place] | [phone] | | [facility] | | [address] | | | - LABORATORY | | | | + + + + + Influenza A and B RNA, NAAT (11/18/2019 1:29 AM PST) + + + + + + | Component | Value | Ref Range | Performed | Pathologist | | | | | At | Signature | + + + + + + | Influenza A | Positive (A) | Negative, Test | [facility] | | [...] [address] | [place] | [phone] | | [facility] | | [address] | | | - LABORATORY | | | | + + + + + Extra Blue Top Tube (11/18/2019 1:28 AM PST) + +-------+ + + + | Component | Value | Ref Range | Performed | Pathologist | | | | | At | Signature | + +-------+ + + + | Extra Blue | Done | | [facility] | | | Top Tube | | [...] [address] | [place] | [phone] | | [facility] | | [address] | | | - LABORATORY | | | | + + + + + C-Reactive Protein (11/18/2019 1:28 AM PST) + + + + + + | Component | Value | Ref Range | Performed | Pathologist | | | | | At | Signature | + + + + + + | CRP | 39.60 (H) | <10.00 mg/L | [facility] | | | | | [...] + | [facility] | [address] | [place] | [phone] | | [facility] | | [address] | | | - LABORATORY | | | | + + + + + Procalcitonin (11/18/2019 1:28 AM PST) + + + + + + | Component | Value | Ref Range | Performed | Pathologist | | | | | At | Signature | + + + + + + | Procalciton | 0.09 | <=0.50 ng/mL | [facility] | | [...] [facility]. | [address] | [place] | [phone] | | [facility] | | [address] | | | - LABORATORY | | | | + + + + + Magnesium (11/18/2019 1:28 AM PST) + +-------+ + + + | Component [...] [address] | [place] | [phone] | | [facility] | | [address] | | | - LABORATORY | | | | + + + + + Lactic Acid (11/18/2019 1:28 AM PST) + +-------+ + + + | Component | Value | Ref Range | Performed | Pathologist | | | | | At | Signature | + +-------+ + + + | Lactate | 0.8 | 0.5 - 2.2 | [facility] | [...] + | [facility] | [address] | [place] | [phone] | | [facility] | | [address] | | | - LABORATORY | | | | + + + + + Culture, Blood (11/18/2019 1:28 AM PST) + + + + + + | [...] [address] | [place] | [phone] | | [facility] | | [address] | | | - LABORATORY | | | | + + + + + Culture, Blood (11/18/2019 1:28 AM PST) + + + + + + | [...] ST. | [address] | [place] | [phone] | | [facility] | | [address] | | | - LABORATORY | | | | + + + + + B Type Natriuretic Peptide (11/18/2019 1:28 AM PST) + + + + + + | Component | Value | Ref Range | Performed | Pathologist | | | | | At | Signature | + + + + + + | BNP | 487 (H)Comment: New | <100 pg/mL | [facility] | | | | method in use as of | | [facility] | | | | December 02, 2018. [...] [address] | [place] | [phone] | | [facility] | | [address] | | | - LABORATORY | | | | + + + + + Troponin I (11/18/2019 1:28 AM PST) + + + + + + | Component | Value | Ref Range | Performed | Pathologist | | | | | At | Signature | + + + + + + | Troponin I | 0.06 (H)Comment: | <0.06 ng/mL | [facility] | [...] | | | | | | [employer] | | | | | [...] [address] | [place] | [phone] | | [facility] | | [address] | | | - LABORATORY | | | | + + + + + Comprehensive Metabolic Panel (11/18/2019 1:28 AM PST) + + + + + + | Component | Value | Ref Range | Performed | Pathologist | | | | | At | Signature | + + + + + + | Na | 145 [...] + + + + | Glucose | 99 | 60 - 106 mg/dL | [facility] | | | | | | [facility] | | | | | | MEDICAL | | | | | | CENTER - | | | | | | LABORATORY | | + + + + + + | BUN | 24 (H) | 9 - 23 mg/dL | [facility] | | | | | | [facility] | | | | | | MEDICAL | | | | | | CENTER - | | | | | | LABORATORY | | + + + + + + | Creatinine | 0.68 | 0.55 - 1.02 | [facility] | | | | | mg/dL | [facility] | | | | | | MEDICAL | | | | | | CENTER - | | | | | | LABORATORY | | + + + + + + | eGFR if not | >60Comment: GLOMERULAR | >=60 | [facility] | | | | FILTRATION | mL/min/1.73m2 | [facility] | | | [place] | RATE,ESTIMATED | | MEDICAL | | | | mL/min/1.02y5Piam than | | CENTER - | | [...] + + + + | Calcium | 8.4 (L) | 8.7 - 10.4 | [facility] [...] + + + + | Bilirubin | 0.3 | 0.3 - 1.2 mg/dL | [facility] | | | Total | | | [facility] | | | | | | MEDICAL | | | | | | CENTER - | | | | | | LABORATORY | | + + + + + + | Total | 5.2 (L) | 5.7 - 8.2 g/dL | [facility] | | | Protein | | | [facility] | | | | | | MEDICAL | | | | | | CENTER - | | | | | | LABORATORY | | + + + + + + | AST | 18 | 0 - 34 U/L | [facility] [...] + + + + | Alkaline | 108 | 46 - 116 U/L | [facility] | | | Phosphatase | | | [facility] | | | | | | MEDICAL | | | | | | CENTER - | | | | | | LABORATORY | | + + + + + + | Globulin | 2.1 | 2.1 - 3.8 g/dL | [facility] | | | | | | [facility] | | | | | | MEDICAL | | | | | | CENTER - | | | | | | LABORATORY | | + + + + + + | Albumin/Sarika | 1.5 | 0.8 - 1.9 | [facility] | | | bulin Ratio | | | [facility] | | | | | | MEDICAL | | | | | | CENTER - | | | | | | LABORATORY | | + + + + + + | BUN/Creatin | 35.3 | | [facility] | | | ine [...] [address] | [place] | [phone] | | [facility] | | [address] | | | - LABORATORY | | | | + + + + + CBC with Differential (11/18/2019 1:28 AM PST) + + + + + + | Component | Value | Ref Range | Performed | Pathologist | | | | | At | Signature | + + + + + + | WBC | 14.5 (H) | 4.0 - 11.0 K/uL | [facility] | | | | | | [facility] | | | | | | MEDICAL | | | | | | CENTER - | | | | | | LABORATORY | | + + + + + + | RBC | 3.08 (L) | 3.70 - 5.20 | [facility] | | | | | M/uL | [facility] | | | | | | MEDICAL | | | | | | CENTER - | | | | | | LABORATORY | | + + + + + + | Hemoglobin | 9.5 (L) | 11.5 - 16.0 | [facility] | | | | | g/dL | [facility] | | | | | | MEDICAL | | | | | | CENTER - | | | | | | LABORATORY | | + + + + + + | Hematocrit | 30.8 (L) | 34.0 - 47.0 % | [facility] | | | | | | [facility] | | | | | | MEDICAL | | | | | | CENTER - | | | | | | LABORATORY | | + + + + + + | MCV | 100.0 | 83.0 - 101.0 fL | [facility] | | | | | | [facility] | | | | | | MEDICAL | | | | | | CENTER - | | | | | | LABORATORY | | + + + + + + | MCH | 30.8 | 28.0 - 35.0 pg | [facility] [...] + + + + | RDW-CV | 16.0 (H) | <15.0 % | [facility] | | | | | [facility] | | | | | | MEDICAL | | | | | | CENTER - | | | | | | LABORATORY | | + + + + + + | RDW-SD | 59.7 (H) | 35.1 - 46.3 fL | [facility] | | | | | | [facility] | | | | | | MEDICAL | | | | | | CENTER - | | | | | | LABORATORY | | + + + + + + | Platelet | 191 | 140 - 440 K/uL | [facility] | | | Count | | | [facility] | | [...] + + + + | % | 81.6 | 45.0 - 82.0 % | [facility] | | | Neutrophils | | | [facility] | | | | | | MEDICAL | | | | | | CENTER - | | | | | | LABORATORY | | + + + + + + | % | 8.6 (L) | 20.0 - 45.0 % | [facility] | | | Lymphocytes | | | [facility] | | | | | | MEDICAL | | | | | | CENTER - | | | | | | LABORATORY | | + + + + + + | % Monocytes | 7.7 | 4.0 - 12.0 % | [facility] | | | | | | [facility] | | | | | | MEDICAL | | | | | | CENTER - | | | | | | LABORATORY | | + + + + + + | % | 1.5 | 0.0 - 5.0 % | [facility] [...] + + + | % Immature | 0.3 | 0.0 - 0.4 % | [facility] [...] + + + + | Absolute | 1.25 | 0.60 - 3.20 | [facility] | | | Lymphocytes | | K/uL | [facility] | | | | | | MEDICAL | | | | | | CENTER - | | | | | | LABORATORY | | + + + + + + | Absolute | 1.12 (H) | 0.00 - 1.00 | [facility] | | | Monocytes | | K/uL | [facility] | | | | | | MEDICAL | | | | | | CENTER - | | | | | | LABORATORY | | + + + + + + | Absolute | 0.22 | 0.00 - 0.40 | [facility] | [...] + | [facility] | [address] | [place] | [phone] | | [facility] | | [address] | | | - LABORATORY | | | | + + + + + ECG 12 lead (11/18/2019 1:13 AM PST) + + + + + + | Component | Value | Ref Range | Performed | Pathologist | | | | | At | Signature | + + + + + + | VENTRICULAR | 115 | BPM | [facility] | | | RATE EKG | | | | | + + + + + + | ATRIAL RATE | 115 | BPM | [facility] | | + + + + + + | P-R | 134 | ms | [facility] | | | INTERVAL | | | | | + + + + + + | QRS | 82 | ms | [facility] | | | DURATION | | | | | + + + + + + | Q-T | 304 | ms | [facility] | | | INTERVAL | | | | | + + + + + + | Q-T | 420 | ms | [facility] | | | INTERVAL | | | | | | (CORRECTED) | | | | | + + + + + + | P WAVE AXIS | 66 | degrees | [facility] | | + + + + + + | QRS AXIS | 63 | degrees | [facility] | | + + + + + + | T AXIS | 74 | degrees | [facility] | | + + + + + + | INTERPRETAT | Sinus | | [facility] | | | ION TEXT | tachycardiaOtherwise | | | | | | normal ECGWhen compared | | | | | | with ECG of 20-OCT-2019 | | | | | | 10:46,T wave inversin is | | | | | | less prominent in lead | | | | | | aVLConfirmed by UMESH | | | | | | LEONIDAS JOSEPH ([id number]) on | | | | | | 11/18/2019 6:15:40 AM | | | | + + [...] + | Diagnosis | + + | Chest pain, unspecified type - Primary | + + | COPD exacerbation (HCC) Obstructive chronic bronchitis with exacerbation | + + | Influenza A Influenza with other respiratory manifestations | + + | 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 | + + | Acute on chronic heart failure, unspecified heart failure type (HCC) | + + | Acute on chronic diastolic heart failure (HCC) Acute on chronic diastolic heart | | failure | + + documented in this encounter Administered Medications + +--------+ + +------+------+ | Medication Order | MAR | Action | Dose | Rate | Site | | | Action | Date | | | | + +--------+ + +------+------+ | adult multivitamin with | Given | 11/24/19 | 1 tablet | | | | minerals/iron tablet 1 tablet 1 | | 20 9:25 | | | | | tablet, Oral, DAILY, First dose | | AM PST | | | | | on [facility] 11/18/19 at 0900 | | | | | | + +--------+ + +------+------+ +-------+ + +---+---+ | Given | 11/22/19 | 1 tablet | | | | | 20 8:46 | | | | | | AM PST | | | | +-------+ + +---+---+ | Given | 11/21/19 | 1 tablet | | | | | 20 8:10 | | | | | | AM PST | | | | +-------+ + +---+---+ +---+---+ | | | +---+---+ + +-------+ +--------+---+---+ | albuterol 2.5 mg/3 mL nebulizer | Given | 11/21/19 | 2.5 mg | | | | solution 2.5 mg 2.5 mg, | | 20 11:25 | | | | | Nebulization, RT EVERY 4 HOURS | | PM PST | | | | | PRN, Wheezing, Shortness of | | | | | | | Breath, Starting [facility] 11/18/19 at | | | | | | | 0440 | | | | | | + +-------+ +--------+---+---+ +-------+ +--------+---+---+ | Given | 11/21/19 | 2.5 mg | | | | | 20 12:34 | | | | | | AM PST | | | | +-------+ +--------+---+---+ | Given | 11/20/19 | 2.5 mg | | | | | 20 1:03 | | | | | | PM PST | | | | +-------+ +--------+---+---+ +---+---+ | | | +---+---+ + +-------+ +-------+---+---+ | albuterol-ipratropium 2.5-0.5 | Given | 11/18/19 | 3 mLs | | | | mg/3 mL nebulizer solution 3 mL | | 20 1:31 | | | | | 3 mL, Nebulization, RT Once, [facility] | | AM PST | | | | | 11/18/19 at 0130, For 1 dose | | | | | | + +-------+ +-------+---+---+ +---+---+ | | | +---+---+ + +-------+ +-------+---+---+ | albuterol-ipratropium 2.5-0.5 | Given | 11/24/19 | 3 mLs | | | | mg/3 mL nebulizer solution 3 mL | | 20 9:32 | | | | | 3 mL, Nebulization, RT Q6H, First | | AM PST | | | | | dose on [facility] 11/18/19 at 0500 | | | | | | + +-------+ +-------+---+---+ +-------+ +-------+---+---+ | Given | 11/24/19 | 3 mLs | | | | | 20 3:34 | | | | | | AM PST | | | | +-------+ +-------+---+---+ | Given | 11/23/19 | 3 mLs | | | | | 20 9:42 | | | | | | PM PST | | | | +-------+ +-------+---+---+ +---+---+ | | | +---+---+ + +-------+ + +---+---+ | amoxicillin-clavulanate | Given | 11/24/19 | 1 tablet | | | | (AUGMENTIN) 875-125 mg per tablet | | 20 9:25 | | | | | 1 tablet 1 tablet, Oral, 2 | | AM PST | | | | | TIMES DAILY, First dose on Fri | | | | | | | 11/23/19 at 1445, For 5 days, | | | | | | | Indications: UTI - LOWER | | | | | | + +-------+ + +---+---+ +-------+ + +---+---+ | Given | 11/23/19 | 1 tablet | | | | | 20 8:26 | | | | | | PM PST | | | | +-------+ + +---+---+ | Given | 11/23/19 | 1 tablet | | | | | 20 3:12 | | | | | | PM PST | | | | +-------+ + +---+---+ +---+---+ | | | +---+---+ + +-------+ +-------+---+---+ | aspirin chewable tablet 81 mg | Given | 11/24/19 | 81 mg | | | | 81 mg, Oral, DAILY, First dose on | | 20 9:25 | | | | | [facility] 11/18/19 at 0900 | | AM PST | | | | + +-------+ +-------+---+---+ +-------+ +-------+---+---+ | Given | 11/22/19 | 81 mg | | | | | 20 8:47 | | | | | | AM PST | | | | +-------+ +-------+---+---+ | Given | 11/21/19 | 81 mg | | | | | 20 8:10 | | | | | | AM PST | | | | +-------+ +-------+---+---+ +---+---+ | | | +---+---+ + +-------+ +-------+---+---+ | atorvaSTATin (LIPITOR) tablet | Given | 11/24/19 | 20 mg | | | | 20 mg 20 mg, Oral, EVERY | | 20 9:25 | | | | | MORNING, First dose on [facility] | | AM PST | | | | | 11/18/19 at 0900 | | | | | | + +-------+ +-------+---+---+ +-------+ +-------+---+---+ | Given | 11/22/19 | 20 mg | | | | | 20 8:47 | | | | | | AM PST | | | | +-------+ +-------+---+---+ | Given | 11/21/19 | 20 mg | | | | | 20 8:10 | | | | | | AM PST | | | | +-------+ +-------+---+---+ +---+---+ | | | +---+---+ + +---------+ +--------+--------+---+ | azithromycin (ZITHROMAX) 250 mg | New Bag | 11/23/19 | 250 mg | 252.5 | | | in sodium chloride 0.9% 250 mL | | 20 8:52 | | mL/hr | | | IVPB 250 mg, Intravenous, | | AM PST | | | | | Administer over 60 Minutes, | | | | | | | DAILY, First dose on Fri11/19/19 | | | | | | | at 0900, Keep in refrigerator., | | | | | | | Indications: COPD exac | | | | | | + +---------+ +--------+--------+---+ +---------+ +--------+--------+---+ | New Bag | 11/22/19 | 250 mg | 252.5 | | | | 20 9:26 | | mL/hr | | | | AM PST | | | | +---------+ +--------+--------+---+ | New Bag | 11/21/19 | 250 mg | 252.5 | | | | 20 8:12 | | mL/hr | | | | AM PST | | | | +---------+ +--------+--------+---+ +---+---+ | | | +---+---+ + +---------+ +--------+-------+---+ | azithromycin (ZITHROMAX) 500 mg | New Bag | 11/18/19 | 500 mg | 255 | | | in sodium chloride 0.9% 250 mL | | 20 5:26 | | mL/hr | | | IVPB 500 mg, Intravenous, | | AM PST | | | | | Administer over 1 Hours, ONCE, | | | | | | | [facility] 11/18/19 at 0500, For 1 dose, | | | | | | | Keep in refrigerator., | | | | | | | Indications: COPD exac | | | | | | + +---------+ +--------+-------+---+ + +---+ | | | + +---+ | benzonatate (TESSALON) capsule | | | 200 mg 200 mg, Oral, 3 TIMES | | | DAILY PRN, Cough, Starting [facility] | | | 11/18/19 at 0440 | | + +---+ | | | + +---+ + +-------+ +--------+---+---+ | brimonidine (ALPHAGAN) 0.2% | Given | 11/24/19 | 1 drop | | | | ophthalmic solution 1 drop 1 | | 20 11:27 | | | | | drop, Both Eyes, 2 TIMES DAILY, | | AM PST | | | | | First dose on [facility] 11/18/19 at 0900 | | | | | | + +-------+ +--------+---+---+ +-------+ +--------+---+---+ | Given | 11/23/19 | 1 drop | | | | | 20 8:31 | | | | | | PM PST | | | | +-------+ +--------+---+---+ | Given | 11/23/19 | 1 drop | | | | | 20 8:58 | | | | | | AM PST | | | | +-------+ +--------+---+---+ +---+---+ | | | +---+---+ + +-------+ +--------+---+---+ | budesonide (PULMICORT) | Given | 11/24/19 | 0.5 mg | | | | nebulizer solution 0.5 mg 0.5 | | 20 9:32 | | | | | mg, Nebulization, 2 TIMES DAILY, | | AM PST | | | | | First dose on [facility] 11/18/19 at | | | | | | | 0900, RT will administer. Shake | | | | | | | well. Protect from light. Rinse | | | | | | | mouth after use., | | | | | | + +-------+ +--------+---+---+ +-------+ +--------+---+---+ | Given | 11/23/19 | 0.5 mg | | | | | 20 9:42 | | | | | | PM PST | | | | +-------+ +--------+---+---+ | Given | 11/23/19 | 0.5 mg | | | | | 20 8:50 | | | | | | AM PST | | | | +-------+ +--------+---+---+ +---+---+ | | | +---+---+ + +-------+ +-------+---+---+ | busPIRone (BUSPAR) tablet 15 mg | Given | 11/21/19 | 15 mg | | | | 15 mg, Oral, 3 TIMES DAILY PRN, | | 20 2:10 | | | | | anxiety, Starting [facility] 11/18/19 at | | PM PST | | | | | 0440 | | | | | | + +-------+ +-------+---+---+ +---+---+ | | | +---+---+ + +-------+ + +---+---+ | calcium carbonate (TUMS) | Given | 11/24/19 | 1,000 mg | | | | chewable tablet 1,000 mg 1,000 | | 20 9:24 | | | | | mg, Oral, DAILY, First dose on | | AM PST | | | | | [facility] 11/18/19 at 0900 | | | | | | + +-------+ + +---+---+ +-------+ + +---+---+ | Given | 11/22/19 | 1,000 mg | | | | | 20 8:48 | | | | | | AM PST | | | | +-------+ + +---+---+ | Given | 11/21/19 | 1,000 mg | | | | | 20 8:12 | | | | | | AM PST | | | | +-------+ + +---+---+ +---+---+ | | | +---+---+ + +-------+ +---------+---+---+ | carvedilol (COREG) tablet 6.25 | Given | 11/23/19 | 6.25 mg | | | | mg 6.25 mg, Oral, 2 TIMES DAILY | | 20 8:15 | | | | | WITH BREAKFAST & DINNER, First | | AM PST | | | | | dose on [facility] 11/18/19 at 0800, Hold | | | | | | | for sbp<100, hr<60, | | | | | | + +-------+ +---------+---+---+ +-------+ +---------+---+---+ | Given | 11/22/19 | 6.25 mg | | | | | 20 4:07 | | | | | | PM PST | | | | +-------+ +---------+---+---+ | Given | 11/22/19 | 6.25 mg | | | | | 20 8:47 | | | | | | AM PST | | | | +-------+ +---------+---+---+ +---+---+ | | | +---+---+ + +-------+ +--------+---+---+ | cefdinir (OMNICEF) capsule 300 | Given | 11/23/19 | 300 mg | | | | mg 300 mg, Oral, 2 TIMES DAILY, | | 20 1:45 | | | | | First dose on Fri11/23/19 at | | PM PST | | | | | 1315, Indications: UTI - LOWER | | | | | | + +-------+ +--------+---+---+ +---+---+ | | | +---+---+ + +-------+ +--------+---+---+ | docusate sodium (COLACE) | Given | 11/24/19 | 200 mg | | | | capsule 200 mg 200 mg, Oral, | | 20 9:25 | | | | | EVERY MORNING, First dose on [facility] | | AM PST | | | | | 11/18/19 at 0900, Hold for loose | | | | | | | stools, | | | | | | + +-------+ +--------+---+---+ +-------+ +--------+---+---+ | Given | 11/22/19 | 200 mg | | | | | 20 8:47 | | | | | | AM PST | | | | +-------+ +--------+---+---+ | Given | 11/21/19 | 200 mg | | | | | 20 8:10 | | | | | | AM PST | | | | +-------+ +--------+---+---+ +---+---+ | | | +---+---+ + +-------+ +--------+---+---+ | dorzolamide (TRUSOPT) 2% | Given | 11/24/19 | 1 drop | | | | ophthalmic solution 1 drop 1 | | 20 9:51 | | | | | drop, Both Eyes, 2 TIMES DAILY, | | AM PST | | | | | First dose on [facility] 11/18/19 at 0900 | | | | | | + +-------+ +--------+---+---+ +-------+ +--------+---+---+ | Given | 11/23/19 | 1 drop | | | | | 20 8:31 | | | | | | PM PST | | | | +-------+ +--------+---+---+ | Given | 11/23/19 | 1 drop | | | | | 20 9:00 | | | | | | AM PST | | | | +-------+ +--------+---+---+ +---+---+ | | | +---+---+ + +-------+ +------+---+---+ | escitalopram (LEXAPRO) tablet 5 | Given | 11/24/19 | 5 mg | | | | mg 5 mg, Oral, DAILY, First | | 20 9:24 | | | | | dose on 11/22/19 at 1600 | | AM PST | | | | + +-------+ +------+---+---+ +-------+ +------+---+---+ | Given | 11/23/19 | 5 mg | | | | | 20 8:56 | | | | | | AM PST | | | | +-------+ +------+---+---+ | Given | 11/22/19 | 5 mg | | | | | 20 4:03 | | | | | | PM PST | | | | +-------+ +------+---+---+ +---+---+ | | | +---+---+ + +-------+ +-------+---+---+ | famotidine (PEPCID) tablet 20 | Given | 11/23/19 | 20 mg | | | | mg 20 mg, Oral, NIGHTLY, First | | 20 1:01 | | | | | dose on [facility] 11/18/19 at 2100 | | AM PST | | | | + +-------+ +-------+---+---+ +-------+ +-------+---+---+ | Given | 11/21/19 | 20 mg | | | | | 20 9:32 | | | | | | PM PST | | | | +-------+ +-------+---+---+ | Given | 11/20/19 | 20 mg | | | | | 20 10:08 | | | | | | PM PST | | | | +-------+ +-------+---+---+ +---+---+ | | | +---+---+ + +-------+ +--------+---+---+ | ferrous sulfate tablet 325 mg | Given | 11/24/19 | 325 mg | | | | 325 mg, Oral, DAILY WITH | | 20 8:03 | | | | | BREAKFAST, First dose on [facility] | | AM PST | | | | | 11/18/19 at 0800 | | | | | | + +-------+ +--------+---+---+ +-------+ +--------+---+---+ | Given | 11/22/19 | 325 mg | | | | | 20 8:47 | | | | | | AM PST | | | | +-------+ +--------+---+---+ | Given | 11/21/19 | 325 mg | | | | | 20 8:11 | | | | | | AM PST | | | | +-------+ +--------+---+---+ +---+---+ | | | +---+---+ + +-------+ +-------+---+---+ | furosemide (LASIX) injection 20 | Given | 11/24/19 | 20 mg | | | | mg 20 mg, Intravenous, 2 TIMES | | 20 8:03 | | | | | DAILY 0800 & 1600, First dose on | | AM PST | | | | | 11/22/19 at 1100 | | | | | | + +-------+ +-------+---+---+ +-------+ +-------+---+---+ | Given | 11/23/19 | 20 mg | | | | | 20 3:12 | | | | | | PM PST | | | | +-------+ +-------+---+---+ | Given | 11/23/19 | 20 mg | | | | | 20 8:16 | | | | | | AM PST | | | | +-------+ +-------+---+---+ +---+---+ | | | +---+---+ + +-------+ +-------+---+---+ | furosemide (LASIX) tablet 20 mg | Given | 11/22/19 | 20 mg | | | | 20 mg, Oral, DAILY, First dose | | 20 8:47 | | | | | on [facility] 11/18/19 at 0900 | | AM PST | | | | + +-------+ +-------+---+---+ +-------+ +-------+---+---+ | Given | 11/21/19 | 20 mg | | | | | 20 8:08 | | | | | | AM PST | | | | +-------+ +-------+---+---+ | Given | 11/20/19 | 20 mg | | | | | 20 9:03 | | | | | | AM PST | | | | +-------+ +-------+---+---+ + +---+ | | | + +---+ | guaiFENesin (ROBITUSSIN) 100 | | | mg/5 mL liquid 200 mg 200 mg, | | | Oral, EVERY 4 HOURS PRN, Cough, | | | Starting [facility] 11/18/19 at 0440 | | + +---+ | | | + +---+ + +-------+ +--------+---+ + | heparin 5,000 units/mL | Given | 11/24/19 | 5,000 | | Abdomen- | | injection 5,000 Units 5,000 | | 20 9:28 | Units | | RUQ | | Units, Subcutaneous, EVERY 12 | | AM PST | | | | | HOURS (2 times per day), First | | | | | | | dose on [facility] 11/18/19 at 0900 | | | | | | + +-------+ +--------+---+ + +-------+ +--------+---+ + | Given | 11/23/19 | 5,000 | | Abdomen- | | | 20 8:25 | Units | | LLQ | | | PM PST | | | | +-------+ +--------+---+ + | Given | 11/22/19 | 5,000 | | Abdomen- | | | 20 8:45 | Units | | LLQ | | | PM PST | | | | +-------+ +--------+---+ + +---+---+ | | | +---+---+ + +-------+ + +---+---+ | HYDROcodone-acetaminophen | Given | 11/24/19 | 1 tablet | | | | (NORCO) 7.5-325 mg per tablet 1 | | 20 8:03 | | | | | tablet 1 tablet, Oral, EVERY 6 | | AM PST | | | | | HOURS PRN, Pain, hold for | | | | | | | sedation, rr<10, Starting [facility] | | | | | | | 11/18/19 at 0440 | | | | | | + +-------+ + +---+---+ +-------+ + +---+---+ | Given | 11/23/19 | 1 tablet | | | | | 20 1:01 | | | | | | AM PST | | | | +-------+ + +---+---+ | Given | 11/22/19 | 1 tablet | | | | | 20 5:41 | | | | | | AM PST | | | | +-------+ + +---+---+ +---+---+ | | | +---+---+ + +-------+ +--------+---+---+ | latanoprost (XALATAN) 0.005% | Given | 11/23/19 | 1 drop | | | | ophthalmic solution 1 drop 1 | | 20 8:31 | | | | | drop, Both Eyes, NIGHTLY, First | | PM PST | | | | | dose on [facility] 11/18/19 at 2100 | | | | | | + +-------+ +--------+---+---+ +-------+ +--------+---+---+ | Given | 11/22/19 | 1 drop | | | | | 20 10:19 | | | | | | PM PST | | | | +-------+ +--------+---+---+ | Given | 11/21/19 | 1 drop | | | | | 20 9:31 | | | | | | PM PST | | | | +-------+ +--------+---+---+ +---+---+ | | | +---+---+ + +-------+ +---------+---+---+ | LORazepam (ATIVAN) tablet 0.25 | Given | 11/23/19 | 0.25 mg | | | | mg 0.25 mg, Oral, EVERY 8 HOURS | | 20 8:56 | | | | | PRN, Anxiety, Starting Tue | | AM PST | | | | | 11/23/19 at 0830 | | | | | | + +-------+ +---------+---+---+ +---+---+ | | | +---+---+ + +-------+ +-------+---+---+ | methylPREDNISolone sodium | Given | 11/20/19 | 20 mg | | | | succinate (solu-MEDROL) 40 mg/mL | | 20 10:03 | | | | | injection 20 mg 20 mg, | | PM PST | | | | | Intravenous, EVERY 8 HOURS (3 | | | | | | | times per day), First dose (after | | | | | | | last modification) on [facility] | | | | | | | 11/18/19 at 2200, For 7 doses, Mix | | | | | | | with 1 mL provided diluent to | | | | | | | make 40 mg/mL., | | | | | | + +-------+ +-------+---+---+ +-------+ +-------+---+---+ | Given | 11/20/19 | 20 mg | | | | | 20 1:42 | | | | | | PM PST | | | | +-------+ +-------+---+---+ | Given | 11/20/19 | 20 mg | | | | | 20 5:58 | | | | | | AM PST | | | | +-------+ +-------+---+---+ +---+---+ | | | +---+---+ + +-------+ +-------+---+---+ | methylPREDNISolone sodium | Given | 11/18/19 | 40 mg | | | | succinate (solu-MEDROL) 40 mg/mL | | 20 12:03 | | | | | injection 40 mg 40 mg, | | PM PST | | | | | Intravenous, EVERY 12 HOURS (2 | | | | | | | times per day), First dose on [facility] | | | | | | | 11/18/19 at 1200, Mix with 1 mL | | | | | | | provided diluent to make 40 | | | | | | | mg/mL., | | | | | | + +-------+ +-------+---+---+ +---+---+ | | | +---+---+ + +-------+ +---------+---+---+ | methylPREDNISolone sodium | Given | 11/18/19 | 62.5 mg | | | | succinate (solu-MEDROL) 62.5 | | 20 1:38 | | | | | mg/mL injection 62.5 mg 62.5 mg, | | AM PST | | | | | Intravenous, ONCE, [facility] 11/18/19 | | | | | | | at 0130, For 1 dose, Mix with 2 | | | | | | | mL provided diluent to make 62.5 | | | | | | | mg/mL., | | | | | | + +-------+ +---------+---+---+ +---+---+ | | | +---+---+ + +-------+ +-------+---+---+ | metoprolol succinate | Given | 11/23/19 | 25 mg | | | | (TOPROL-XL) ER tablet 25 mg 25 | | 20 8:26 | | | | | mg, Oral, NIGHTLY, First dose on | | PM PST | | | | | [facility] 11/18/19 at 2100, Hold for | | | | | | | sbp<100, hr<60 Tablet may be cut | | | | | | | where scored but do not crush., | | | | | | + +-------+ +-------+---+---+ +-------+ +-------+---+---+ | Given | 11/23/19 | 25 mg | | | | | 20 1:01 | | | | | | AM PST | | | | +-------+ +-------+---+---+ | Given | 11/21/19 | 25 mg | | | | | 20 9:32 | | | | | | PM PST | | | | +-------+ +-------+---+---+ + +---+ | | | + +---+ | morphine injection 0.26-0.5 mg | | | 0.26-0.5 mg (rounded from | | | 0.25-0.5 mg), Intravenous, EVERY | | | 2 HOURS PRN, Pain, Starting Mon | | | 11/22/19 at 1536 | | + +---+ | | | + +---+ + +-------+ +------+---+---+ | morphine injection 1-4 mg 1-4 | Given | 11/22/19 | 2 mg | | | | mg, Intravenous, EVERY 4 HOURS | | 20 3:16 | | | | | PRN, Pain, hold for sedation, | | AM PST | | | | | rr<10, Starting [facility] 11/18/19 at | | | | | | | 0440, Slow IV push, not faster | | | | | | | than 2 mg/minute. If ineffective | | | | | | | or not tolerated, use | | | | | | | hydromorphone IV if ordered., | | | | | | + +-------+ +------+---+---+ +-------+ +------+---+---+ | Given | 11/21/19 | 1 mg | | | | | 20 2:20 | | | | | | PM PST | | | | +-------+ +------+---+---+ +---+---+ | | | +---+---+ + +-------+ +-------+---+---+ | oseltamivir (TAMIFLU) capsule | Given | 11/18/19 | 30 mg | | | | 30 mg 30 mg, Oral, ONCE, [facility] | | 20 2:37 | | | | | 11/18/19 at 0225, For 1 dose, | | AM PST | | | | | Capsules may be opened and | | | | | | | contents mixed with sweetened | | | | | | | liquid such as chocolate syrup., | | | | | | | Indications: Influenza | | | | | | + +-------+ +-------+---+---+ +---+---+ | | | +---+---+ + +-------+ +-------+---+---+ | oseltamivir (TAMIFLU) capsule | Given | 11/24/19 | 30 mg | | | | 30 mg 30 mg, Oral, 2 TIMES | | 20 11:27 | | | | | DAILY, First dose on [facility] 11/18/19 | | AM PST | | | | | at 2100, Capsules may be opened | | | | | | | and contents mixed with sweetened | | | | | | | liquid such as chocolate syrup., | | | | | | | Indications: Influenza | | | | | | + +-------+ +-------+---+---+ +-------+ +-------+---+---+ | Given | 11/23/19 | 30 mg | | | | | 20 8:25 | | | | | | PM PST | | | | +-------+ +-------+---+---+ | Given | 11/23/19 | 30 mg | | | | | 20 9:54 | | | | | | AM PST | | | | +-------+ +-------+---+---+ +---+---+ | | | +---+---+ + +-------+ +-------+---+---+ | pantoprazole (PROTONIX) DR | Given | 11/24/19 | 40 mg | | | | tablet 40 mg 40 mg, Oral, DAILY | | 20 8:24 | | | | | BEFORE BREAKFAST, First dose on | | AM PST | | | | | [facility] 11/18/19 at 0730, Do not cut | | | | | | | or crush., Indication: GERD | | | | | | + +-------+ +-------+---+---+ +-------+ +-------+---+---+ | Given | 11/23/19 | 40 mg | | | | | 20 6:42 | | | | | | AM PST | | | | +-------+ +-------+---+---+ | Given | 11/22/19 | 40 mg | | | | | 20 6:33 | | | | | | AM PST | | | | +-------+ +-------+---+---+ +---+---+ | | | +---+---+ + +-------+ +---------+---+---+ | polyvinyl alcohol (LIQUITEARS) | Given | 11/24/19 | 2 drops | | | | 1.4% ophthalmic solution 2 drop | | 20 10:00 | | | | | 2 drop, Both Eyes, EVERY MORNING, | | AM PST | | | | | First dose on [facility] 11/18/19 at | | | | | | | 0900 | | | | | | + +-------+ +---------+---+---+ +-------+ +---------+---+---+ | Given | 11/23/19 | 2 drops | | | | | 20 9:01 | | | | | | AM PST | | | | +-------+ +---------+---+---+ | Given | 11/22/19 | 2 drops | | | | | 20 8:49 | | | | | | AM PST | | | | +-------+ +---------+---+---+ +---+---+ | | | +---+---+ + +-------+ +-------+---+---+ | predniSONE (DELTASONE) tablet | Given | 11/24/19 | 40 mg | | | | 40 mg 40 mg, Oral, DAILY, First | | 20 9:25 | | | | | dose on [facility] 11/21/19 at 0900 | | AM PST | | | | + +-------+ +-------+---+---+ +-------+ +-------+---+---+ | Given | 11/23/19 | 40 mg | | | | | 20 8:56 | | | | | | AM PST | | | | +-------+ +-------+---+---+ | Given | 11/22/19 | 40 mg | | | | | 20 8:47 | | | | | | AM PST | | | | +-------+ +-------+---+---+ +---+---+ | | | +---+---+ documented in this encounter Additional Health Concerns + + + + | Infection | Noted Time | Resolved Time | + + + + | Methicillin-resistant Staphylococcus aureus | 06/08/2019 9:39 AM | | | | PDT | | + + + + | Rule out Respiratory Infection | 11/18/2019 1:26 AM | 11/18/2019 2:02 AM | | | PST | PST | + + + + | Influenza - flu | 11/18/2019 2:02 AM | 12/02/2019 11:56 AM | | | PST | UTC | + + + + documented as of this encounter
--- OUTSIDE RECORDS SUMMARY | ~2020-03-14 | XMS | Encounter Summary ---
Demographics + + + | Address | [address] | | | [place] [address] | + + + | Home Phone [...] | Author | [facility] | | | and [place] | + + + | Organization | [facility] | | | and [...] Team Providers + +------+ + | Care Gear Roller Name | Role | Phone | + +------+ + | Candido Link | PCP | | | MD | | | + +------+ + Reason for Visit +---------+ + | Reason | Comments | +---------+ + | Emesis | | +---------+ + | Dysuria | | +---------+ + Encounter Details +--------+ + + + + | Date | Type | Department | Care Team | Description | +--------+ + + + + | 10/27/ | Emergency | [facility] | Mir Lux | Diverticulitis of | | 2020 | | [facility] | Kevin Urbano MD | large intestine with | | | | CENTER [address] | [address] | perforation without | | | | [place], [place] | [place], [place] | abscess or bleeding | | | | [id number] | [id number] | (Primary Dx) | | | | [phone] | | | +--------+ + + + [...] + + + | Blood Pressure | 100/43 | 10/27/2019 2:29 PM | | | | | PST | | + + + + + | Pulse | 94 | 10/27/2019 2:29 PM | | | | | PST | | + + + + + | Temperature | 35.8 C (96.5 F) | 10/27/2019 12:05 PM | | | | | PST | | + + + + + | Respiratory Rate | 16 | 10/27/2019 12:05 PM | | | | | PST | | + + + + + | Oxygen Saturation | 99% | 10/27/2019 2:29 PM | | | | | PST [...] + + documented in this encounter Discharge Instructions Instructions Mir Lux MD - 10/27/2019Antibiotics as prescribed. Drink plenty of fluids take an nausea medicine as scribed. Please follow-up with your primary car e physician. documented in this encounter Medications at Time [...] | | | | | | Tinea cruris | | | | | | + [...] + +---------+ + + | | Take 3 mLs by | 1080 mL | 0 | 08/05/20 | | | albuterol-ipratropiu | nebulization 4 times | | | 19 | 0 | | m 2.5-0.5 mg/3 mL | daily for 90 days. 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 | | | | | | 875-125 [...] + + + +---------+ + + | busPIRone (BUSPAR) | Take 1 tablet by | 90 | 3 | 10/14/19 | | | 15 mg | mouth 3 times daily | tablet | | 20 | 0 | | tabletIndications: | as needed. | | | | | | Anxiety | | | | | | + + + +---------+ + + | calcium carbonate | Take 2 tablets by | | 0 | | | | (TUMS EX) 750 MG | mouth Daily as | | | | 0 | | chewable tablet | needed for | | | | | | | Heartburn. | | | | | + + + +---------+ + + | CALCIUM CARBONATE | Take 1,000 mg by | | 0 | | | | PO | mouth Daily. | | | | 0 | + + + +---------+ + + | carvedilol (COREG) | Take 6.25 mg by | | 0 | 08/28/20 | | | 6.25 mg tablet | mouth 2 times daily | | | 19 | 0 | | | (with breakfast & | | | | | | | dinner). | | | | | + + + +---------+ + + | Cholecalciferol | Take 600 Units by | | 0 | | | | (VITAMIN D PO) | mouth every morning. | | | | 0 | + + + +---------+ + + | CRANBERRY | Take 15,000 mg by | | 0 | 08/29/20 | | | CONCENTRATE PO | mouth Daily. | | | 19 | 0 | + + + +---------+ + + [...] + + + +---------+ + + | estradiol (ESTRACE | Apply 1 gm to vagina | 42.5 g | 3 | 08/09/20 | | | VAGINAL) 0.1 mg/g | daily x 2 weeks | | | 19 | 0 | | vaginal | then 1gm once weekly | | | | | | creamIndications: | | | | | | | Recurrent UTI | | | | | | + + + +---------+ + + | furosemide (LASIX) | Take 1 tablet by | 90 | 1 | 06/16/20 | | | 20 mg tablet | mouth Daily. | tablet | | 19 | 0 | + + + +---------+ + + | | Take 1 tablet by | 120 | 0 | 10/12/19 | | | HYDROcodone-acetamin | mouth every [...] ondansetron | Take 1 tablet by | 90 | 2 | 08/16/20 | | | (ZOFRAN ODT) 4 mg | mouth every 8 hours | tablet | | 19 | 0 | | disintegrating | as needed for | | | | | | tabletIndications: | Nausea. | | | | | | Nausea | | | | | | + + + +---------+ + + | oxybutynin | Take 1 tablet by | 30 | 3 | 08/30/20 | | | (DITROPAN-XL) 10 MG | mouth Daily. | tablet | | 19 | 0 | | 24 hr tablet | | | | | [...] +---------+ + + | polyethylene | Take 1 diluted | | 0 | 09/08/20 | | | glycol (MIRALAX) | packet by mouth | | | 19 | 0 | | packet | Daily as needed for | | | | [...] +---------+ + + | predniSONE | Take 10 mg by mouth | | 0 | | | | (DELTASONE) 10 mg | Daily. | | | | 0 | | tablet | | | | | | + + + +---------+ + + | Sodium Chloride | Inject 10 mLs into | | 0 | 09/09/20 | | | Flush (SODIUM | the vein 2 times | | | 19 | 0 | | CHLORIDE 0.9%) flush | daily. | | | | | [...] | | 2019 | Visit | | [facility] [address] | | | | | | [place] | | | | | | [address] | | | | | | | | +--------+ + + + + | 04/11/ | Appointment | Radiology | Shawn Michael | | 2019 | | | MD Marcelino [address] | | | | | | [address] | | | | | | [place] [address] | | | | | | [phone] | | | | | | | | +--------+ + + + + | 04/13/ | Office | Cardiology | Shawn Michael | | | 2019 | Visit | | MD Marcelino [address] | | | | | [address] | | | | | | [place] [address] | | | | | | [phone] | | | | | | | | +--------+ + + + + + +------+--------+ + + | Name | Type | Priori | Associated Diagnoses | Date/Time | | | | ty | | | + +------+--------+ + + | ED INFORMATION | MICHAEL | Routin | | 10/27/2019 11:59 AM | | EXCHANGE | | e | | PST | + +------+--------+ + + documented as of this encounter Procedures + +--------+ + + + | Procedure Name | Priori | Date/Time | Associated Diagnosis | Comments | | | ty | | | | + +--------+ + + + | LIPASE | STAT | 10/27/2019 | | Results for this | | | | 2:04 PM | | procedure are in the | | | | PST | | results section. | + +--------+ + + + | COMPREHENSIVE | STAT | 10/27/2019 | | Results for this | | METABOLIC PANEL | | 2:04 PM | | procedure are in the | | | | PST | | results section. | + +--------+ + + + | CT ABDOMEN PELVIS W | STAT | 10/27/2019 | | Results for this | | CONTRAST | | 1:56 PM | | procedure are in the | | | | PST | | results section. | + +--------+ + + + | LACTIC ACID | Routin | 10/27/2019 | | Results for this | | | e | 1:11 PM | | procedure are in the | | | | PST | | results section. | + +--------+ + + + | CBC WITH | STAT | 10/27/2019 | | Results for this | | DIFFERENTIAL | | 12:58 PM | | procedure are in the | | | | PST | | results section. | + +--------+ + + + | URINALYSIS WITH | Routin | 10/27/2019 | | Results for this | | MICROSCOPIC | e | 12:50 PM | | procedure are in the | | | | PST | | results section. | + +--------+ + + + documented in this encounter Results Comprehensive Metabolic Panel (10/27/2019 2:04 PM PST) + + + + + [...] | | | | | | [facility] | | [facility] | [facility] - | | | | | | [facility]ATORY | | + + + + + + | CO2 | 27 | 20 - 31 mmol/L | [facility] | | | | | [facility] - | | | | | | LAB[facility]ATORY | | + + + + + + | Anion Gap | 7 | 3 - 16 mmol/L | [facility] | | | | | [facility] | [facility] | [facility] | | | | | [facility] - | | | | | | LABORATORY | | + + + + + + | Glucose | 96 | 60 - 106 mg/dL | [facility] | | | | | [facility] | [facility] | | | | | [facility] - | | | | | | LABORATORY | | + + + + + + | BUN | 31 (H) | 9 - 23 mg/dL | [facility] | | | | | [facility] | [facility] | | | | | | [facility] - | | | | | | LABORATORY | | + + + + + + | Creatinine | 0.74 | 0.55 - 1.02 | [facility] | | | | | mg/dL | [facility] | | [facility] | [facility] | | | | | | [facility] - | | | | | | LABORATORY | | + + + + + + | eGFR if not | >60Comment: GLOMERULAR | >=60 | [facility] | | | | FILTRATION | mL/min/1.73m2 | [facility] | | | [facility] | RATE,ESTIMATED | | MEDICAL | | | | mL/min/1.06m8Rfsl than | | CENTER - | | [...] + + + + | Calcium | 6.9 (L) | 8.7 - 10.4 | [facility] | | | | | mg/dL | [facility] | [facility] | | | | | | [facility] - | | | | | | LABORATORY | | + + + + + + | Albumin | 2.2 (L) | 3.2 - 4.8 g/dL | [facility] | | | | | | [facility] | | [facility] | [facility] | | | | | | [facility] - | | | | | | LABORATORY | | + + + + + + | Bilirubin | 0.4 | 0.3 - 1.2 mg/dL | [facility] | | | Total | | | [facility] | [facility] | | | | | | [facility] - | | | | | | LABORATORY | | + + + + + + | Total | 4.0 (L) | 5.7 - 8.2 g/dL | [facility] | | | Protein | | | [facility] | | | | | | [facility] | | | | | | [facility] - | | | | | | LABORATORY | | + + + + + + | AST | 12 | 0 - 34 U/L | [facility] | | | | | | [facility] | | [facility] | [facility] | | | | | | [facility] - | | | | | | LABORATORY | | + + + + + + | ALT | <7 (L) | 10 - 49 U/L | [facility] | | | | | [facility] | | | | | [facility] | | | | | | [facility] - | | | | | | LABORATORY | | + + + + + + | Alkaline | 91 | 46 - 116 U/L | [facility] | | | Phosphatase | | | [facility] | | | | | | [facility] | | | | | | [facility] - | | | | | | LABORATORY | | + + + + + + | Globulin | 1.8 (L) | 2.1 - 3.8 g/dL | [facility] | | | | | | [facility] | | | | | [facility] | | | | | | [facility] - | | | | | | LABORATORY | | + + + + + + | Albumin/Sarika | 1.2 | 0.8 - 1.9 | [facility] | | | bulin Ratio | | | [facility] | | | | | | [facility] | | | | | | [facility] - | | | | | | LABORATORY | | + + + + + + | BUN/Creatin | 41.9 | | [facility] | | | ine Ratio | | | [facility] | | | | | | [facility] [...] [address] | [place] | [phone] | | [facility] | | [address] | | | - LABORATORY | | | | + + + + + Lipase (10/27/2019 2:04 PM PST) + + + + + + | Component | Value | Ref Range | Performed | Pathologist | | | | | At | Signature | + + + + + + | Lipase | 17Comment: New method in | 12 - 53 U/L | [facility] | | | | use as of December 02, | | [facility] | | | | 2018. Check [...] [address] | [place] | [phone] | | [facility] | | [address] | | | - LABORATORY | | | | + + + + + CT Abdomen Pelvis w Contrast (10/27/2019 1:56 PM PST) + + | Specimen | + + | | + + + + + | Impressions | Performed At | + + + | Findings suggestive of acute diverticulitis involving the distal | [facility] | | sigmoid and upper rectum near the anastomosis site. This area | | | actually located left inflamed than on the 2 most recent comparison | | | CTs. No evidence for gastrointestinal tract obstruction. | | | Persistent enlargement of the intrahepatic and hepatic biliary ducts | | | and persistent enlargement of the pancreatic duct. These findings | | | suggest a narrowing near the ampulla. The etiology is uncertain. | | | Changes in the lower lobes may be due to aspiration. Cannot | | | exclude an early pneumonia. Dictated and Signed by: Edwin Parson | | | MD [place] Electronically signed: 10/27/2019 2:24 PM | | + + + + + + | Narrative | Performed At | + + + | EXAM: CT ABDOMEN PELVIS W CONTRAST dated 10/27/2019 1:56 PM | [facility] | | HISTORY:Abdominal distension EMESIS DYSURIA Comparison: | | | 09/01/2019 CT. MRCP 09/03/2019. TECHNIQUE: Imaging is performed | | | from the lung bases through the pubic symphysis following the | | | uneventful intravenous administration of 80 mL Omnipaque 350. | | | Automated exposure control, Adjustment of mA and/or kV according to | | | patient size, and use of iterative reconstruction technique are | | | applied to this exam. DOSE: DLP 144.14 mGy-cm FINDINGS: | | | LUNG BASES: Bronchial wall thickening and some areas of | | | bronchiectasis bilaterally. No pneumothorax. No pleural effusion. | | | No visible pericardial thickening. There is some peribronchial | | | vascular nodularity in both lower lobes. No consolidation. | | | LIVER: There is significant intrahepatic biliary ductal dilatation. | | | There is a stable area of hypervascularity in the posterior aspect | | | of segment 6. This has had a long-term presence also seen in 2018 | | | on outside study. No abnormal liver contour. GALLBLADDER: The | | | gallbladder is surgically absent. There is dilatation of the | | | intrahepatic and extra hepatic ducts. This is appear significantly | | | changed. SPLEEN: The spleen is unremarkable. There is no | | | splenomegaly. PANCREAS: There is dilatation of the pancreatic | | | duct. There is mild diffuse pancreatic atrophy. The findings are | | | not significantly changed. ADRENALS: No adrenal enlargement. No | | | adrenal masses. KIDNEYS: Stable hypodensities in both kidneys. | | | No interval obstruction. No perinephric stranding. BOWEL: | | | There is no evidence for gastrointestinal tract obstruction. There | | | is no evidence for appendicitis. There is diverticulosis which | | | predominates in the sigmoid colon. There is haziness surrounding | | | the distal sigmoid and upper rectum. This area appears actually | | | somewhat improved compared to September 01, 2019. 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 | | | Eccentric atherosclerotic disease extending into the iliac arteries | | | bilaterally. No retroperitoneal, abdominal, or pelvic | | | lymphadenopathy. BLADDER: The bladder is unremarkable. UTERUS | | | AND ADNEXA:The uterus is surgically absent. There are no adnexal | | | masses. BONES: There are no acute osseous abnormalities. There | | | are no suspicious lytic or blastic bone lesions. Diffuse | | | demineralization. Multilevel spondylosis and spondylolisthesis. | | | OTHER: There is no free fluid. There is no free air. | | + + + + + | Procedure Note | + + | Kobe, Rad Results In - 10/27/2019 2:27 PM PST EXAM: CT ABDOMEN PELVIS W CONTRAST | | dated 10/27/2019 1:56 PMHISTORY:Abdominal distensionEMESISDYSURIAComparison: 09/01/2019 | | CT. MRCP 09/03/2019.TECHNIQUE: Imaging is performed from the lung bases through the | | pubic symphysisfollowing the uneventful intravenous administration of 80 mL Omnipaque | | 350. Automated exposure control, Adjustment of mA and/or kV according to patientsize, | | and use of iterative reconstruction technique are applied to this exam.DOSE: DLP 144.14 | | mGy-cmFINDINGS: LUNG BASES: Bronchial wall thickening and some areas of | | bronchiectasisbilaterally. No pneumothorax. No pleural effusion. No visible | | pericardialthickening. There is some peribronchial vascular nodularity in both | | lowerlobes. No consolidation.LIVER: There is significant intrahepatic biliary ductal | | dilatation. There is astable area of hypervascularity in the posterior aspect of | | segment 6. This hashad a long-term presence also seen in 2018 on outside study. No | | abnormal livercontour.GALLBLADDER: The gallbladder is surgically absent. There is | | dilatation of theintrahepatic and extra hepatic ducts. This is appear significantly | | changed.SPLEEN: The spleen is unremarkable. There is no splenomegaly.PANCREAS: There is | | dilatation of the pancreatic duct. There is mild diffusepancreatic atrophy. The | | findings are not significantly changed.ADRENALS: No adrenal enlargement. No adrenal | | masses.KIDNEYS: Stable hypodensities in both kidneys. No interval obstruction. | | Noperinephric stranding.BOWEL: There is no evidence for gastrointestinal tract | | obstruction. There is noevidence for appendicitis. There is diverticulosis which | | predominates in thesigmoid colon. There is haziness surrounding the distal sigmoid and | | upperrectum. 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 | | Eccentric atherosclerotic disease extending into the iliac arteries bilaterally. No | | retroperitoneal, abdominal, or pelvic lymphadenopathy.BLADDER: The bladder is | | unremarkable.UTERUS AND ADNEXA:The uterus is surgically absent. There are no adnexal | | masses.BONES: There are no acute osseous abnormalities. There are no suspicious lyticor | | blastic bone lesions. Diffuse demineralization. Multilevel spondylosis | | andspondylolisthesis.OTHER: There is no free fluid. There is no free air.IMPRESSION: | | Findings suggestive of acute diverticulitis involving the distal sigmoid andupper rectum | | near the anastomosis site. This area actually located leftinflamed than on the 2 most | | recent comparison CTs.No evidence for gastrointestinal tract obstruction.Persistent | | enlargement of the intrahepatic and hepatic biliary ducts andpersistent enlargement of | | the pancreatic duct. These findings suggest anarrowing near the ampulla. The etiology | | is uncertain.Changes in the lower lobes may be due to aspiration. Cannot exclude an | | earlypneumonia.Dictated and Signed by: Edwin Jarrell MD Electronically signed: | | 10/27/2019 2:24 PM | |KIDNEYS: Stable hypodensities in both kidneys. No interval obstruction. No | |perinephric stranding. | | | |BOWEL: There is no evidence for gastrointestinal tract obstruction. There is no | |evidence for appendicitis. There is diverticulosis which predominates in the | |sigmoid colon. There is haziness surrounding the distal sigmoid and upper | |rectum. This area appears actually somewhat improved compared to September 01, | |2018. 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 | |Eccentric atherosclerotic disease extending into the iliac arteries bilaterally. | | No retroperitoneal, abdominal, or pelvic lymphadenopathy. | | | |BLADDER: The bladder is unremarkable. | | | |UTERUS AND ADNEXA:The uterus is surgically absent. There are no adnexal masses. | | | |BONES: There are no acute osseous abnormalities. There are no suspicious lytic | |or blastic bone lesions. Diffuse demineralization. Multilevel spondylosis and | |spondylolisthesis. | | | |OTHER: There is no free fluid. There is no free air. | | | |IMPRESSION: | | | |Findings suggestive of acute diverticulitis involving the distal sigmoid and | |upper rectum near the anastomosis site. This area actually located left | |inflamed than on the 2 most recent comparison CTs. | | | |No evidence for gastrointestinal tract obstruction. | | | |Persistent enlargement of the intrahepatic and hepatic biliary ducts and | |persistent enlargement of the pancreatic duct. These findings suggest a | |narrowing near the ampulla. The etiology is uncertain. | | | |Changes in the lower lobes may be due to aspiration. Cannot exclude an early | |pneumonia. | | | |Dictated and Signed by: Edwin Jarrell MD | | Electronically signed: 10/27/2019 2:24 PM | + + + +---------+ + + | Performing | Address | City/State/Zipcode | Phone Number | | Organization | | | | + +---------+ + + | [facility] | | | | + +---------+ + + Lactic Acid (10/27/2019 1:11 PM PST) + +-------+ + + + | Component | Value | Ref Range | Performed | Pathologist | | | | | At | Signature | + +-------+ + + + | Lactate | 1.2 | 0.5 - 2.2 | [facility] | [...] + | [facility] | [address] | [place] | [phone] | | [facility] | | [address] | | | - LABORATORY | | | | + + + + + CBC with Differential (10/27/2019 12:58 PM PST) + + + + + + | Component | Value | Ref Range | Performed | Pathologist | | | | | At | Signature | + + + + + + | WBC | 12.2 (H) | 4.0 - 11.0 K/uL | [facility] | | | | | | [facility] | | | | | | [facility] | | | | | | [facility] - | | | | | | LABORATORY | | + + + + + + | RBC | 3.19 (L) | 3.70 - 5.20 | [facility] | | | | | M/uL | [facility] | | | | | | [facility] | | | | | | CENTER - | | | | | | LABORATORY | | + + + + + + | Hemoglobin | 9.5 (L) | 11.5 - 16.0 | [facility] | | | | | g/dL | [facility] | | | | | | [facility]ICAL | | | | | | CENTER - | | | | | | LABORATORY | | + + + + + + | Hematocrit | 31.2 (L) | 34.0 - 47.0 % | [facility] | | | | | | [facility] | | | | | | [facility] | | | | | | C[facility] - | | | | | | LABORATORY | | + + + + + + | MCV | 97.8 | 83.0 - 101.0 fL | [facility] | | | | | | [facility] | | | | | | [facility] | | | | | | [facility] - | | | | | | LABORATORY | | + + + + + + | MCH | 29.8 | 28.0 - 35.0 pg | [facility] | | | | | | [facility] | | | | | | [facility] | | | | | | C[facility] - | | | | | | LABORATORY | | + + + + + + | MCHC | 30.4 (L) | 32.0 - 36.0 | [facility] | | | | | g/dL | [facility] | | | | | | [facility]ICAL | | | | | | CENTER - | | | | | | LABORATORY | | + + + + + + | RDW-CV | 16.6 (H) | <15.0 % | [facility] | | | | | | [facility] | | | | | | [facility] | | | | | | C[facility] - | | | | | | LABORATORY | | + + + + + + | RDW-SD | 59.1 (H) | 35.1 - 46.3 fL | [facility] | | | | | | [facility] | | | | | | [facility] | | | | | | C[facility] - | | | | | | LABORATORY | | + + + + + + | Platelet | 201 | 140 - 440 K/uL | [facility] | | | Count | | | [facility] | | [facility] | | | [facility] | | | | | | CENTER - | | | | | | LABORATORY | | + + + + + + | MPV | 10.7 | 6.5 - 12.4 fL | [facility] | | | | | | [facility] | | | | | | [facility] | | | | | | C[facility] - | | | | | | LABORATORY | | + + + + + + | % | 84.8 (H) | 45.0 - 82.0 % | [facility] | | | Neutrophils | | | [facility] | | | | | | MEDICAL | | | | | | CENTER - | | | | | | LABORATORY | | + + + + + + | % | 8.8 (L) | 20.0 - 45.0 % | [facility] | | | Lymphocytes | | | [facility] | | | | | | MEDICAL | | | | | | CENTER - | | | | | | LABORATORY | | + + + + + + | % Monocytes | 4.8 | 4.0 - 12.0 % | [facility] | | | | | | [facility] | | | | | | [facility]ICAL | | | | | | CENTER - | | | | | | LABORATORY | | + + + + + + | % | 0.9 | 0.0 - 5.0 % | [facility] | | | Eosinophils | | | [facility] | | | | | | MEDICAL | | | | | | CENTER - | | | | | | LABORATORY | | + + + + + + | % Basophils | 0.5 | 0.0 - 1.0 % | [facility] | | | | | | [facility] | | | | | | [facility]ICAL | | | | | | CENTER - | | | | | | LABORATORY | | + + + + + + | % Immature | 0.2 | 0.0 - 0.4 % | [facility] | | | Granulocyte | | | [facility] | | | s | | | MEDICAL | | | | | | CENTER - | | | | | | LABORATORY | | + + + + + + | Absolute | 10.33 (H) | 1.80 - 8.50 | [facility] | | | Neutrophils | | K/uL | [facility] | | | | | | [facility]ICAL | | | | | | CENTER - | | | | | | LABORATORY | | + + + + + + | Absolute | 1.07 | 0.60 - 3.20 | [facility] | | | Lymphocytes | | K/uL | [facility] | | | | | | MEDICAL | | | | | | CENTER - | | | | | | LABORATORY | | + + + + + + | Absolute | 0.58 | 0.00 - 1.00 | [facility] | | | Monocytes | | K/uL | [facility] | | | | | | [facility]ICAL | | | | | | CENTER - | | | | | | LABORATORY | | + + + + + + | Absolute | 0.11 | 0.00 - 0.40 | [facility] | | | Eosinophils | | K/uL | [facility] | | | | | | MEDICAL | | | | | | CENTER - | | | | | | LABORATORY | | + + + + + + | Absolute | 0.06 | 0.00 - 0.10 | [facility] | | | Basophils | | K/uL | [facility] | | | | | | MEDICAL | | | | | | CENTER - | | | | | | LABORATORY | | + + + + + + | Absolute | 0.03 | 0.00 - 0.03 | [facility] | | | Immature | | K/uL | [facility] | | | Granulocyte | | | MEDICAL | | | s | | | CENTER - | | | | | | LABORATORY | | + + + + + + | % nRBC | 0 | 0 - 2 per 100 | [facility] | | | | | WBCs | [facility] | | | | | | MEDICAL [...] | [address] | [place] | [phone] | | [facility] | | [address] | | | - LABORATORY | | | | + + + + + Urinalysis With Microscopic (10/27/2019 12:50 PM PST) + + + + + + | Component | Value | Ref Range | Performed | Pathologist | | | | | At | Signature | + + + + + + | Color, | Yellow | Light Yellow, | [facility] | | | Urine | | Yellow, Straw | [facility] | | | | | | [facility] | | | | | | CENTER - | | | | | | LABORATORY | | + + + + + + | Clarity | Cloudy (A) | Clear | [facility] | | | | | | [facility] | | | | | | [facility] | | | | | | C[facility] - | | | | | | LABORATORY | | + + + + + + | pH, Urine | 5.0 | 5.0 - 8.0 | [facility] | | | | | | [facility] | | | | | | [facility] | | | | | | C[facility] - | | | | | | LABORATORY | | + + + + + + | Specific | 1.012 | 1.001 - 1.030 | [facility] | | | [place], | | | [facility] | | | Urine | | | MEDICAL | | | | | | CENTER - | | | | | | LABORATORY | | + + + + + + | Protein, | Negative | Negative | [facility] | | | Urine | | | [facility] | | | | | | MEDICAL | | | | | | CENTER - | | | | | | LABORATORY | | + + + + + + | Blood, | Small (A) | Negative | [facility] | | | Urine | | | [facility] | | | | | | MEDICAL | | | | | | CENTER - | | | | | | LABORATORY | | + + + + + + | Glucose, | Negative | Negative | [facility] | | | Urine | | | [facility] | | | | | | MEDICAL | | | | | | CENTER - | | | | | | LABORATORY | | + + + + + + | Ketones, | Negative | Negative | [facility] | | | Urine | | | [facility] | | | | | | [facility] | | | | | | C[facility] - | | | | | | LABORATORY | | + + + + + + | Bilirubin, | Negative | Negative | [facility] | | | Urine | | | [facility] | | | | | | [facility] | | | | | | C[facility] - | | | | | | LABORATORY | | + + + + + + | Nitrite, | Negative | Negative | [facility] | | | Urine | | | [facility] | | | | | | [facility] | | | | | | CENTER - | | | | | | LABORATORY | | + + + + + + | Leukocyte | Moderate (A) | Negative | [facility] | | | Esterase, | | | [facility] | | | Urine | | | MEDICAL | | | | | | CENTER - | | | | | | LABORATORY | | + + + + + + | Urobilinoge | Negative | 0.2 mg/dL, 1.0 | [facility] | | | n, Urine | | mg/dL, Negative | [facility] | | | | | | [facility]ICAL | | | | | | CENTER - | | | | | | LABORATORY | | + + + + + + | White Blood | >100 (A) | 0 - 2 /HPF | [facility] | | | Cells, | | | [facility] | | | Urine | | | MEDICAL | | | | | | CENTER - | | | | | | LABORATORY | | + + + + + + | White Blood | Few (A) | None Seen /HPF | [facility] | | | Cell | | | [facility] | | | Clumps, | | | MEDICAL | | | Urine | | | CENTER - | | | | | | LABORATORY | | + + + + + + | Red Blood | 2-5 (A) | 0 - 2 /HPF | [facility] | | | Cells, | | | [facility] | | | Urine | | | MEDICAL | | | | | | CENTER - | | | | | | LABORATORY | | + + + + + + | Squamous | >100 (A) | 0 - 2 /LPF | [facility] | | | Epithelial | | | [facility] | | | Cells, | | | MEDICAL | | | Urine | | | CENTER - | | | | | | LABORATORY | | + + + + + + | Bacteria, | 4+ (A) | Negative /HPF | [facility] | | | Urine | | | [facility] | | | | | | MEDICAL | | | | | | CENTER - | | | | | | LABORATORY | | + + + + + + | Mucus, | Present (A) | Negative /LPF | [facility] | | | Urine | | | [facility] | | | | | | MEDICAL | | | | | | CENTER - | | | | | | LABORATORY | | + + + + + + | Hyaline | 5-10 (A) | 0 - 2 /LPF | [facility] | | | [facility], | | | [facility] | | [...] | [address] | [place] | [phone] | | [facility] | | [id number] | | | - LABORATORY | | | | + + + + + documented in this encounter Visit Diagnoses + + | Diagnosis | + + | Diverticulitis of large intestine with perforation without abscess or bleeding - | | Primary | + + documented in this encounter Administered Medications + +--------+ + +------+------+ | Medication Order | MAR | Action | Dose | Rate | Site | | | Action | Date | | | | + +--------+ + +------+------+ | amoxicillin-clavulanate | Given | 10/27/19 | 1 tablet | | | | (AUGMENTIN) 875-125 mg per tablet | | 20 3:19 | | | | | 1 tablet 1 tablet, Oral, ONCE, | | PM PST | | | | | 10/27/19 at 1510, For 1 dose, | | | | | | | Indications: Diverticulitis of | | | | | | | the Gastrointestinal Tract | | | | | | + +--------+ + +------+------+ +---+---+ | | | +---+---+ + +-------+ +--------+---+---+ | iohexol (OMNIPAQUE 350) 350 | Given | 10/27/19 | 80 mLs | | | | mg/mL injection 80 mL 80 mL, | | 20 2:00 | | | | | Intravenous, ONCE PRN, Other, for | | PM PST | | | | | CT contrast study, Starting Wed | | | | | | | 10/27/19 at 1358, For 1 dose, | | | | | | | Radiology | | | | | | + +-------+ +--------+---+---+ +---+---+ | | | +---+---+ + +-------+ +------+---+---+ | ondansetron (ZOFRAN) injection | Given | 10/27/19 | 4 mg | | | | 4 mg 4 mg, Intravenous, ONCE, | | 20 1:04 | | | | | 10/27/19 at 1250, For 1 dose | | PM PST | | | | + +-------+ +------+---+---+ +---+---+ | | | +---+---+ + +---------+ +--------+-------+---+ | sodium chloride 0.9% (NS) bolus | New Bag | 10/27/19 | 1,000 | 1000 | | | 1,000 mL 1,000 mL, Intravenous, | | 20 1:02 | mLs | mL/hr | | | Administer over 1 Hours, ONCE, | | PM PST | | | | | 10/27/19 at 1250, For 1 dose | | | | | | + +---------+ +--------+-------+---+ +---+---+ | | | +---+---+ + +------+ +--------+-------+---+ | sodium chloride 0.9% (NS) bolus | Push | 10/27/19 | 20 mLs | 1200 | | | 20 mL 20 mL, Intravenous, | | 20 2:00 | | mL/hr | | | Administer over 1 Minutes, ONCE | | PM PST | | | | | PRN, for CT contrast study, | | | | | | | Starting 10/27/19 at 1358, For | | | | | | | 1 dose, Radiology | | | | | | + +------+ +--------+-------+---+ +---+---+ | | | +---+---+ documented in this encounter Additional Health Concerns + + + + | Infection | Noted Time | Resolved Time | + + + + | Methicillin-resistant Staphylococcus aureus | 06/08/2019 9:39 AM | | | | PDT | | + + + + documented as of this encounter"
--- OUTSIDE RECORDS SUMMARY | ~2020-03-14 | XMS | Encounter Summary ---
Demographics + + + | Address | [address] | | | [place] [address] | + + + | Home Phone | | + + + | Preferred Language | Unknown | + + + | Marital Status | | + + + | Pentecostalism Affiliation | Unknown | + + + | Race | Unknown | + + + | Ethnic Group | Unknown | + + + Author + + + | Author | [facility] | | | and [place] | + + + | Organization | [facility] | | | [...] Team Providers + +------+ + | Care Optical Laboratory Manager Name | Role | Phone | [...] | +--------+ + + + + | 10/23/ | Home Care | [facility] [place] | Nivia Olivarez CNA | HH AIDE REPEAT VISIT | | 2019 | Visit | [place] [address] | | | | | | [place] | | | | | | [address] | | | | | | [phone] | | | +--------+ + + + [...] [place] | | | | | | [id number] | | | | | | | | +--------+ + + + + | 04/11/ | Appointment | Radiology | Shawn Michael | | 2019 | | | MD Marcel[address] | | | | | | [address] | | | | | | [place] [address] | | | | | | [phone] | | | | | | | | +--------+ + + + + | 04/13/ | Office | Cardiology | Julieta Michaelr | | | 2019 | Visit | | MD Marcelino [address] | | | | | | [address] [place] | | | | | | [place] [address] | | | | | | [phone] | | | | | | | [...] Plan + + | Visit Type - C[employer] REPRESENTATIVE - REPEAT VISIT | | Discipline - Home Health Aide | + + + + +--------+--------+ + + | Problem | Description | Start | Status | Goals | Interventio | | | | Date | | | ns | + + +--------+--------+ + + | HH Aide Need | C[employer] REPRESENTATIVE services | | | 1 goal | 3 goal | | Disciplines: | needed | | Active | linked to | interventio | | Senior Living, | | 019 | | scheduled/d | [...] | | | personal care, | | Ongoin | | | | living environment | | g, | | | | and ADLs | | progre | | | | Description: The | | ssing | | | | patient will receive [...] care: | care, living | | | shower: shampoo: | | sponge bath or | environment and ADLs | | | pericare: skin/back | | shower: Per patient | | | | care: brush/comb hair | | request shampoo: | | | | dressing: | | PRN, gentle washing | | [...] | maintaining | | | | care: clean patient | | cleanliness of | | | | care area | | immediate care area: | | [...] Special | care, living | | | care: | | instructions: cover | environment and ADLs | | | | | LLE wound dressing | | | | | | with plastic to | | | | | | protect in shower | | | | | + + +--------+--------+ + documented in this encounter"
--- OUTSIDE RECORDS SUMMARY | ~2020-03-14 | XMS | Encounter Summary ---
Demographics + + + | Address | [address] | | | [place] [address] | + + + | Home Phone | | + + + | Preferred Language | Unknown | + + + | Marital Status | | + + + | Jewish Affiliation | Unknown | + + + | Race | Unknown | + + + | Ethnic Group | Unknown | + + + Author + + + | Author | [facility] | | | and [place] | + + + | Organization | [facility] | | [...] Team Providers + +------+ + | Care Clerical Investigator Name | Role | Phone | + +------+ + | Candido Link | PCP | | | MD | | | + +------+ + Reason for Visit + + + | Reason | Comments | + + + | Referral (Follow up) | | + + + Encounter Details +--------+ + + + + | Date | Type | Department | Care Team | Description | +--------+ + + + + | 02/23/ | Telephone | [facility] | Shikha Peace, | Referral (Follow up) | | 2020 | | [place] [address] | [place] | | | | | [place] | | | | | | [address] | | | | | | [phone] | | | +--------+ + + + [...] | | 2019 | Visit | | [facility] [address] | | | | | | [place] | | | | | | [address] | | | | | | | | +--------+ + + + + | 04/11/ | Appointment | Radiology | Shawn Michael | | | 2019 | | | MD [address] | | | | | | [address] [place] | | | | | | [place] [address] | | | | | | [phone] | | | | | | | | +--------+ + + + + | 04/13/ | Office | Cardiology | Shawn Michael | | | 2019 | Visit | | MD [address] | | | | | | [address] [place] | | | | | | [place], [place] [address] | | | | | | [phone] | | | | | | | [...]
--- OUTSIDE RECORDS SUMMARY | ~2020-03-14 | XMS | Encounter Summary ---
Demographics + + + | Address | [address] | | | [place] [address] | + + + | Home Phone | | + + + | Preferred Language | Unknown | + + + | Marital Status | | + + + | Alevism Affiliation | Unknown | + + + | Race | Unknown | + + + | Ethnic Group | Unknown | + + + Author + + + | Author | [facility] | | | and [place] | + + + | Organization | [facility] | | | [...] Team Providers + +------+ + | Care Phlebotomy Lab Assistant Name | Role | Phone | + +------+ + | Candido Link | PCP | | | MD | | | + +------+ + Reason for Referral Evaluate & Treat (Routine) +--------+ + + + + + | Status | Reason | Specialty | Diagnoses / | Referred By | Referred To | | | | | Procedures | Contact | Contact | +--------+ + + + + + | Closed | Specialty | Physical | Diagnoses | | [facility] | | | Services | Therapy / | Adhesive | [facility] | [place] | | | Required | Rehabilitatio | capsulitis | i, | Therapy [address] | | | | n | of right | Candido | [address] | | | | | shoulder | , MD [address] | [place], | | | | | Procedures | [address] | [place] [address] | | | | | PT | [place], | Phone: | | | | | | [place] | [phone] | | | | | | [address] | Fax: | | | | | | Phone: | [phone] | | | | | | [phone] | | | | | | | Fax: | | | | | | | [phone] | | +--------+ + + + + + Reason for Visit + + + | Reason | Comments | + + + | ER Follow-up | Lower abdomen pain, right shoulder pain | + + + Encounter Details +--------+---------+ + + + | Date | Type | Department | Care Team | Description | +--------+---------+ + + + | 11/01/ | Office | [facility] | Nikolay, | Adhesive capsulitis | | 2019 | Visit | MEDICINE [address] [place] [address] | MD Candido | of right shoulder | | | | [facility] | [address] [place] [address] | (Primary Dx); | | | | [place] [address] | [place] [address] | Generalized | | | | [phone] | [phone] | osteoarthritis; Long | | | | | | term prescription | | | | | | opiate use; Acute | | | | | | diverticulitis | +--------+---------+ + + + Social History + + [...] + + + | Blood Pressure | 100/60 | 11/01/2019 3:09 PM | | | | | PST | | + + + + + | Pulse | 83 | 11/01/2019 3:09 PM | | | | | PST | | + + + + + | Temperature | 36.7 C (98.1 F) | 11/01/2019 3:09 PM | | | | | PST | | + + + + + | Respiratory Rate | 18 | 11/01/2019 3:09 PM | | | | | PST | | + + + + + | Oxygen Saturation | 96% | 11/01/2019 3:09 PM | | | | | PST | | + + + + + | Inhaled Oxygen | - | - | | | Concentration | | | | + + + + + | Weight | 54.4 kg (119 lb 14.9 | 11/01/2019 3:09 PM | | | | oz) | PST | | + + + + + | Height | 165.1 cm (5' 5") | 11/01/2019 3:09 PM | | | | | PST | | + + + + + | Body Mass Index | 19.96 | 11/01/2019 3:09 PM | | | | | PST | | + + + + + documented in this encounter Progress Notes Candido Link MD - 11/01/2019 3:00 PM PSTFormatting of this note might be d ifferent from the original. CHIEF COMPLAINT Chief Complaint Patient presents with ER Follow-up Lower abdomen pain, right shoulder pain HPI Ángela Crowley is a 89 y.o. y/o female who presents today for several issues: She is here complaining of persistent pain in her right shoulder that she has had for quite a while now. She had several falls in recent months and she injured her shoulder. Prior t o that though she has had symptoms for about 2 years. No recent physical therapy. Pain is worse with activity. No tingling numbness or weakness otherwise in her right upper extremit y. She also has history of generalized osteoarthritis taking hydrocodone, she will need a refi ll in a couple of weeks and she is wondering whether she could get the prescription sent now so she does not have to come for separate appointment. She states she is tolerating it wel l. No confusion or drowsiness. No constipation. Her son is with her today, he is her main caregiver. She has been in the emergency room recently with abdominal pain, was diagnosed with acute d iverticulitis and she is about to finish antibiotics for that. They have helped. No fever or chills. No nausea or vomiting. Abdominal pain has improved significantly. ASSESSMENT & PLAN 1. Adhesive capsulitis of right shoulder - * [facility] [place] [facility] Physical Therapy- AMB Referral 2. Generalized osteoarthritis - HYDROcodone-acetaminophen (NORCO) 7.5-325 mg per tablet; Take 1 tablet by mouth every 6 h ours as needed for Pain. Dispense: 120 tablet; Refill: 0 3. long term prescription opiate use Recent Review Flowsheet Data Opioid Management Classification 11/01/2019 PDMP Reviewed [place] Pre-adjustment Management Classification Low Management Classification - Manually Adjust based on Pre-adjustment and ORT Moderate Management Classification Adjusted by Comorbidities and Concurrent Meds Moderate View Complete Flowsheet 4. Acute diverticulitis -This appears to have resolved, continue with observation for now. RELEVANT LABS WBC Date Value Ref Range Status 10/27/2019 12.2 (H) 4.0 - 11.0 K/uL Final 10/14/2019 12.7 (H) 4.0 - 11.0 K/uL Final RBC Date Value Ref Range Status 10/27/2019 3.19 (L) 3.70 - 5.20 M/uL Final 10/14/2019 3.11 (L) 3.70 - 5.20 M/uL Final Hemoglobin Date Value Ref Range Status 10/27/2019 9.5 (L) 11.5 - 16.0 g/dL Final 10/14/2019 9.2 (L) 11.5 - 16.0 g/dL Final Hematocrit Date Value Ref Range Status 10/27/2019 31.2 (L) 34.0 - 47.0 % Final 10/14/2019 29.4 (L) 34.0 - 47.0 % Final MCV Date Value Ref Range Status 10/27/2019 97.8 83.0 - 101.0 fL Final 10/14/2019 94.5 83.0 - 101.0 fL Final RDW-SD Date Value Ref Range Status 10/27/2019 59.1 (H) 35.1 - 46.3 fL Final 10/14/2019 56.9 (H) 35.1 - 46.3 fL Final Platelet Count Date Value Ref Range Status 10/27/2019 201 140 - 440 K/uL Final 10/14/2019 242 140 - 440 K/uL Final + Na Date Value Ref Range Status 10/27/2019 142 136 - 145 mmol/L Final 10/14/2019 143 136 - 145 mmol/L Final K Date Value Ref Range Status 10/27/2019 3.4 3.4 - 5.1 mmol/L Final 10/14/2019 3.6 3.4 - 5.1 mmol/L Final Chloride, POC Date Value Ref Range Status 05/31/2019 109 98 - 109 mEq/L Final Cl Date Value Ref Range Status 10/27/2019 108 (H) 98 - 107 mmol/L Final 10/14/2019 106 98 - 107 mmol/L Final CO2 Date Value Ref Range Status 10/27/2019 27 20 - 31 mmol/L Final 10/14/2019 30 20 - 31 mmol/L Final Anion Gap Date Value Ref Range Status 10/27/2019 7 3 - 16 mmol/L Final 10/14/2019 7 3 - 16 mmol/L Final Glucose Date Value Ref Range Status 10/27/2019 96 60 - 106 mg/dL Final 10/14/2019 103 60 - 106 mg/dL Final BUN Date Value Ref Range Status 10/27/2019 31 (H) 9 - 23 mg/dL Final 10/14/2019 22 9 - 23 mg/dL Final Creatinine Date Value Ref Range Status 10/27/2019 0.74 0.55 - 1.02 mg/dL Final 10/14/2019 0.82 0.55 - 1.02 mg/dL Final Creatinine, POC Date Value Ref Range Status 05/31/2019 1.0 0.6 - 1.3 mg/dL Final Calcium Date Value Ref Range Status 10/27/2019 6.9 (L) 8.7 - 10.4 mg/dL Final 10/14/2019 8.7 8.7 - 10.4 mg/dL Final Magnesium Date Value Ref Range Status 09/05/2019 2.0 1.6 - 2.6 mg/dL Final 09/02/2019 1.9 1.6 - 2.6 mg/dL Final Albumin Date Value Ref Range Status 10/27/2019 2.2 (L) 3.2 - 4.8 g/dL Final 10/14/2019 2.9 (L) 3.2 - 4.8 g/dL Final Albumin/Globulin Ratio Date Value Ref Range Status 10/27/2019 1.2 0.8 - 1.9 Final 10/14/2019 1.3 0.8 - 1.9 Final Globulin Date Value Ref Range Status 10/27/2019 1.8 (L) 2.1 - 3.8 g/dL Final 10/14/2019 2.3 2.1 - 3.8 g/dL Final Alkaline Phosphatase Date Value Ref Range Status 10/27/2019 91 46 - 116 U/L Final 10/14/2019 115 46 - 116 U/L Final ALT Date Value Ref Range Status 10/27/2019 <7 (L) 10 - 49 U/L Final 10/14/2019 11 10 - 49 U/L Final AST Date Value Ref Range Status 10/27/2019 12 0 - 34 U/L Final 10/14/2019 18 0 - 34 U/L Final Bilirubin Total Date Value Ref Range Status 10/27/2019 0.4 0.3 - 1.2 mg/dL Final 10/14/2019 0.7 0.3 - 1.2 mg/dL Final REVIEW OF SYSTEMS Constitutional: No Weight Change, No Fever, No Chills, No Malaise. ENT/Mouth: No Hearing Changes, No Ear Pain, No Nasal Congestion, No Sinus Pain, No Hoarsen ess, No sore throat, No Rhinorrhea, No Swallowing Difficulty. Eyes: No Eye Pain, No Vision Changes. Cardiovascular: No Chest Pain, No Dyspnea on Exertion. Respiratory: No Cough, No SOB Gastrointestinal: No Nausea, No Vomiting, No Pain. Genitourinary: No Dysuria, No Urinary Frequency, No Hematuria. Musculoskeletal: Right shoulder arthralgias, No Myalgias. Skin: No Rashes, No Skin Lesions Neuro: No Weakness, No Numbness, No Headache. Psych: No Anxiety/Panic, No Depression. Heme/Lymph: No Bruising, No Bleeding. Endocrine: No Polyuria, No Polydipsia, No Temperature Intolerance. PHYSICAL EXAM VITAL SIGNS: BP 100/60 | Pulse 83 | Temp 36.7 C (98.1 F) (Temporal) | Resp 18 | Ht 1.651 m (5' 5") | Wt 54.4 kg (119 lb 14.9 oz) | SpO2 96% | BMI 19.96 kg/m Constitutional: Well developed, No acute distress, Pleasant female. Cardiovascular: Regular rate & rhythm, No murmurs, No rubs, No gallops. No lower extremitie s edema. Thorax & Lungs: Normal chest, No respiratory distress, No crackles, wheezing, or rubs. Abdomen: Bowel sounds normal, Soft, No tenderness, No masses, No HSM, no masses. Skin: Warm, No erythema, No rash. Musculoskeletal: Significantly decreased range of motion in right shoulder above horizontal on abduction, some tenderness to palpation in the anterolateral aspect of her right shoulde r with no deformities or crepitation Neurologic: Alert & oriented x 3, No focal deficits noted. Psychiatric: Affect normal, Judgment normal, Mood normal. PAST MEDICAL HISTORY Past Medical History: Diagnosis Date Aortic stenosis COPD (chronic obstructive pulmonary disease) (HCC) Coronary artery disease Kidney stone Rheumatic fever Tuberculosis Venereal disease FAMILY HISTORY Family History Problem Relation Age of Onset Hypertension Mother Stroke Mother SOCIAL HISTORY Social History Socioeconomic History Marital status: Spouse name: Not on file Number of children: Not on file Years of education: Not on file Highest education level: Not on file Tobacco Use Smoking status: Former Smoker Types: Cigarettes Start date: 1944 Last attempt to quit: 1968 Years since quittin.1 Smokeless tobacco: Never Used Substance and Sexual Activity Alcohol use: Never Frequency: Never SURGICAL HISTORY Past Surgical History: Procedure Laterality Date 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 CHOLECYSTECTOMY COLONOSCOPY N/A 06/11/2019 Procedure: COLONOSCOPY-Possible Flex Sig; Surgeon: Edwin Stoddard MD; Location: [facility] PROCEDURE UNIT HYSTERECTOMY NIRMAL AND BSO TONSILLECTOMY AND ADENOIDECTOMY UPPER GASTROINTESTINAL ENDOSCOPY N/A 06/07/2019 Procedure: EGD; Surgeon: Edwin Stoddard MD; Location: [facility] MEDICAL PROCEDURE UNIT UPPER GASTROINTESTINAL ENDOSCOPY N/A 08/20/2019 Procedure: EGD; Surgeon: John Girmes MD; Location: [facility] MEDICAL PROCEDURE UNIT CURRENT MEDICATIONS Current Outpatient Medications Medication Sig Dispense Refill acetaminophen (TYLENOL) 325 mg tablet Take 2 tablets by mouth every 6 hours as needed f or Pain (or fever >= 38.6 C (101.5 F)). 120 tablet albuterol (VENTOLIN HFA) 90 mcg/puff inhaler Inhale 2 puffs into the lungs every 4 hour s as needed for Wheezing. albuterol-ipratropium 2.5-0.5 mg/3 mL SOLN Take 3 mLs by nebulization 4 times daily for 90 days. 1080 mL 0 amoxicillin-clavulanate (AUGMENTIN) 875-125 mg per tablet Take 1 tablet by mouth 2 time s daily for 10 days. 20 tablet 0 aspirin 81 mg chewable tablet Take 1 tablet by mouth Daily. 30 tablet 3 atorvaSTATin (LIPITOR) 20 mg tablet Take 1 tablet by mouth every morning. 90 tablet 0 bacitracin 500 UNIT/GM ointment Apply 1 Application topically 2 times daily. To bedsore on buttocks bisacodyl (DULCOLAX) 5 mg EC tablet Take 5 mg by mouth Daily. brimonidine (ALPHAGAN) 0.2% ophthalmic solution Place 1 drop into both eyes 2 times millie ly. 12 budesonide (PULMICORT) 0.5 mg/2 mL nebulizer solution Take 2 mLs by nebulization 2 time s daily. Dx Code J44.90 (Patient taking differently: Take 0.5 mg by nebulization 4 times millie ly. Dx Code J44.90) 180 mL 3 busPIRone (BUSPAR) 15 mg tablet Take 1 tablet by mouth 3 times daily as needed. 90 tabl et 3 calcium carbonate (TUMS EX) 750 MG chewable tablet Take 2 tablets by mouth Daily as nee ded for Heartburn. CALCIUM CARBONATE PO Take 1,000 mg by mouth Daily. carvedilol (COREG) 6.25 mg tablet Take 6.25 mg by mouth 2 times daily (with breakfast & dinner). Cholecalciferol (VITAMIN D PO) Take 600 Units by mouth every morning. CRANBERRY CONCENTRATE PO Take 15,000 mg by mouth Daily. dicyclomine (BENTYL) 10 mg capsule Take 1 capsule by mouth Daily as needed for Other (A s needed for abdominal cramps). 30 capsule 0 docusate sodium (COLACE) 250 MG capsule Take 250 mg by mouth every morning. Hold for lo ose stools dorzolamide (TRUSOPT) 2% ophthalmic solution Place 1 drop into both eyes 2 times daily. 12 EQ ALLERGY RELIEF, CETIRIZINE, 10 MG tablet TAKE 1 TABLET BY MOUTH ONCE DAILY 30 tablet 1 estradiol (ESTRACE VAGINAL) 0.1 mg/g vaginal cream Apply 1 gm to vagina daily x 2 weeks then 1gm once weekly 42.5 g 3 famotidine (PEPCID) 40 MG tablet Take 1 tablet by mouth nightly. 90 tablet 1 ferrous sulfate 325 mg tablet Take 1 tablet by mouth daily (with breakfast). 90 tablet 3 fluticasone (FLONASE) 50 mcg/nasal spray 1 spray by Nasal route Daily as needed for All ergies. furosemide (LASIX) 20 mg tablet Take 1 tablet by mouth Daily. 90 tablet 1 [START ON 11/11/2019] HYDROcodone-acetaminophen (NORCO) 7.5-325 mg per tablet Take 1 tabl et by mouth every 6 hours as needed for Pain. 120 tablet 0 ketoconazole (NIZORAL) 2% cream Apply topically 2 times daily. 30 g 2 latanoprost (XALATAN) 0.005% ophthalmic solution Place 1 drop into both eyes nightly. 12 metoprolol succinate (TOPROL-XL) 25 mg 24 hr tablet Take 1 tablet by mouth nightly. 90 tablet 1 Multiple Vitamins-Minerals (PRESERVISION AREDS 2) CAPS Take 1 capsule by mouth 2 times daily. nitroglycerin (NITROSTAT) 0.[address] 0.4 mg under the tongue every 5 minute s as needed for Chest pain. ondansetron (ZOFRAN ODT) 4 mg disintegrating tablet Take 1 tablet by mouth every 6 hour s as needed for Nausea. 15 tablet 0 ondansetron (ZOFRAN ODT) 4 mg disintegrating tablet Take 1 tablet by mouth every 8 hour s as needed for Nausea. 90 tablet 2 oxygen Inhale 3 L into the lungs continuous. ALETHEA: 99 months. 1 Container 2 pantoprazole (PROTONIX) 40 mg tablet Take 1 tablet by mouth every morning (before break fast). 90 tablet 1 Polyethylene Glycol 3350 POWD Take 17 g by mouth Daily as needed for Constipation. polyvinyl alcohol (LIQUITEARS) 1.4% ophthalmic solution Place 2 drops into both eyes ev janae morning. predniSONE (DELTASONE) 10 mg tablet Take 10 mg by mouth Daily. prochlorperazine 10 mg tablet Take 1 tablet by mouth every 8 hours as needed. 30 tablet 0 Respiratory Therapy Supplies MISC Replacement O2 mask. Please evaluate and provide an O 2 mask that is more useful to the patient. Duration: Lifetime Dx: COPD, severe J44.9 1 each 0 senna (SENOKOT) 8.6 mg tablet Take by mouth Twice daily as needed for Constipation. 1 4 tablet Sodium Chloride Flush (SODIUM CHLORIDE 0.9%) flush Inject 10 mLs into the vein 2 times daily. UNABLE TO FIND Adult Pull ups, medium size 100 each 3 No current facility-administered medications for this visit. ALLERGIES Allergies Allergen Reactions Metronidazole GI Upset Flagyl [Metronidazole] Nausea And Vomiting and GI Upset Percocet [Oxycodone] Unknown Pregabalin Unknown Lyrica Sulfa Antibiotics Unknown FOLLOW-UP No follow-ups on file. Notes: 1. Parts of this documentwere created using [employer] speech recognition software. As a resu lt, there may be unintended word spelling errors. Every attempt was made to correct the di ctation. Chapito montoya in this encounter Plan of Treatment +--------+ + + + + | Date | Type | Specialty | Care Team | Description | +--------+ + + + + | 03/23/ | Office | Anticoagulation | García Harris, | | 2019 | Visit | | [place] | | | | | | [place] | | | | | | [address] | | | | | | | | +--------+ + + + + | 04/11/ | Appointment | Radiology | Shawn Michael | | 2019 | | | MD Marcelino [address] | | | | | | [address] | | | | | | [place] [address] | | | | | | [phone] | | | | | | | | +--------+ + + + + | 04/13/ | Office | Cardiology | Shawn Michael | | | 2019 | Visit | | MD Marcelino [address] | | | | | | [address] [place] | | | | | | [place] [address] | | | | | | [phone] | | | | | | | | +--------+ + + + + + + +--------+ + + | Name | Type | Priori | Associated Diagnoses | Order Schedule | | | | ty | | | + + +--------+ + + | * MISAEL CERDA | Outpatient | Routin | Adhesive | Ordered: 11/01/2019 | | Daquan Briceño | Referral | e | capsulitis of right | | | Physical Therapy- | | | shoulder | | | AMB Referral | | | | | + + +--------+ + + documented as of this encounter Visit Diagnoses + + | Diagnosis | + + | Adhesive capsulitis of right shoulder - Primary Adhesive capsulitis of shoulder | + + | Generalized osteoarthritis Generalized osteoarthrosis, unspecified site | + + | senior living prescription opiate use | + + | Acute diverticulitis | + + documented in this encounter Additional Health Concerns + + + + | Infection | Noted Time | Resolved Time | + + + + | Methicillin-resistant Staphylococcus aureus | 06/08/2019 9:39 AM | | | | PDT | | + + + + documented as of this encounter
--- OUTSIDE RECORDS SUMMARY | ~2020-03-14 | XMS | Encounter Summary ---
Demographics + + + | Address | [address] | | | [place] [address] | + + + | Home Phone | | + + + | Preferred Language | Unknown | + + + | Marital Status | | + + + | Muslim Affiliation | Unknown | + + + | Race | Unknown | + + + | Ethnic Group | Unknown | + + + Author + + + | Author | [facility] | | | and [place] | + + + | Organization | [facility] | | | [...] Team Providers + +------+ + | Care Principal Java Software Engineer Name | Role | Phone | + [...] | +--------+ + + + + | 10/04/ | Home Care | [facility] [place] | Timothy, | HH AIDE REPEAT VISIT | | 2018 | Visit | [place] [address] | [facility] | | | | | [place] | | | | | | [address] | | | | | | [phone] | | | +--------+ + + + [...] | | | | | [place] [address] | | | | | | [phone] | | | | | | | | +--------+ + + + + | 04/13/ | Office | Cardiology | Shawn Michael | | | 2019 | Visit | | MD Marcelino [address] | | | | | | [address] | | | | | | [place] [address] | | | | | | [phone] | | | | | | | [...] Plan + + | Visit Type - ANCHOR TACK PULLER - REPEAT VISIT | | Discipline - Home Health Aide | + + + + +--------+--------+ + + | Problem | Description | Start | Status | Goals | Interventio | | | | Date | | | ns | + + +--------+--------+ + + | HH Aide Need | ANCHOR TACK PULLER services | | | 1 goal | 3 goal | | Disciplines: | needed | | Active | linked to | interventio | | [place], | | 019 | | scheduled/d | [...] | Problem: HH Aide | | | | | Description: | NeedGoal: Home | [place] | | | | Assist patient with | Health Aide personal | led | | | | personal care: | care, living [...] | Problem: HH Aide | | | | | with cleanliness of | NeedGoal: Home | [place] | | | | care area | Health Aide personal | led | | | | Description: | care, living | | | | | Assist in | environment and ADLs | | | | | maintaining | | | | | | cleanliness of | | | | | | immediate care area: | | | | | | clean patient care | | | | | | area | | | | | + + +--------+--------+ + | HH aide special | Problem: HH Aide | | | | | instructions | NeedGoal: Home | [place] | | | | Description: | Health Aide personal | led | | | | Special | care, living | | | | | instructions: cover | environment and ADLs | | | | | LLE wound dressing | | | | | | with plastic to | | | | | | protect in shower | | | | | + + +--------+--------+ + documented in this encounter"
--- OUTSIDE RECORDS SUMMARY | ~2020-03-14 | XMS | Encounter Summary ---
Demographics + + + | Address | [address] | | | [place] [address] | + + + | Home Phone | | + + + | Preferred Language | Unknown | + + + | Marital Status | | + + + | Mormonism Affiliation | Unknown | + + + | Race | Unknown | + + + | Ethnic Group | Unknown | + + + Author + + + | Author | [facility] | | | and [place] | + + + | Organization | [facility] | | | [...] Team Providers + +------+ + | Care Credit Collector Name | Role | Phone | + +------+ + | Candido Link | PCP | | | MD | | | + +------+ + Reason for Visit + + + | Reason | Comments | + + + | Altered Mental | | | Status | | + + + | Shortness of Breath | | + + + Encounter Details +--------+ + + + + | Date | Type | Department | Care Team | Description | +--------+ + + + + | 07/14/ | Emergency | [facility] | Pj, | Upper respiratory | | 2019 | | [facility] | MD Marcel [address] | tract infection, | | | | [address] | [address] | unspecified type | | | | [place] | [place] [address] | (Primary Dx); | | | | [address] | [phone] | Hypervolemia, | | | | [phone] | | unspecified | | | | | | hypervolemia type; | | | | | | Chronic obstructive | | | | | | pulmonary disease, | | | | | | unspecified COPD | | | | | | type (HCC) | +--------+ + + + + [...] + + + | Blood Pressure | 146/61 | 07/14/2019 3:01 PM | | | | | PDT | | + + + + + | Pulse | 96 | 07/14/2019 3:01 PM | | | | | PDT | | + + + + + | Temperature | 37.4 C (99.3 F) | 07/14/2019 9:03 AM | | | | | PDT | | + + + + + | Respiratory Rate | 21 | 07/14/2019 11:59 AM | | | | | PDT | | + + + + + | Oxygen Saturation | 98% | 07/14/2019 3:01 PM | | | | | PDT [...] documented in this encounter Discharge Instructions Instructions Marcel Oliva MD - 07/14/2019Please increase your Lasix for the next cou ple days, then back to normal. Follow-up with your DrCedric as needed. I believe this is likely an upper respiratory infection, but is not bacterial and does not require antibiotics. I a m starting on a short course of steroids to help with the airway inflammation. Continue wit h your breathing treatments at home. Return for any other concerns. Thank you for visiting [facility] Emergency Department. Please follow up with your primary care provider in the next 1-3 days unless otherwise spec ified. If you review your results on "My Charts" and there happens to be any concerns or abnormali ties that you have a question about, please follow up with your primary care provider to dis cuss these results. Please read all informational handouts and medication instructions, if provided. Please be aware that although we feel you are safe for discharge at this time, disease proc esses are dynamic and your condition may change. If you have any significant concerns about your condition that you fear may be emergent in nature, please return for re-evaluation. Changes in the disease process may allow certain conditions to be detected at a different t lazaro. You would not be released today if there was evidence of an emergent medical or surgica l condition that would benefit from admission to the hospital or emergent surgery. Although this emergency department is staffed with highly trained physicians that are board certified in emergency medicine, unfortunately not all significant problems are detectable during the time of evaluation. This is why it is important for you to return if significantly concerne d, or otherwise follow up with your primary care provider for re-evaluation. documented in this encounter Medications at Time [...] | | Take 3 mLs by | 360 mL | 3 | 06/16/20 | | | albuterol-ipratropiu | nebulization every 4 | | | 19 | 9 | | m 2.5-0.5 mg/3 mL | hours as needed for | | | | | | SOLN | Increased Work of | | | | | | | Breathing. | | | | | + + + +---------+ + + | arformoterol | Take 2 mLs by | 180 mL | 3 | 06/22/20 | | | (BROVANA) 15 MCG/2ML | nebulization 2 times | | | 19 | 9 | | NEBU | daily. J44.90 | | | | | + + + +---------+ + + | atorvaSTATin | Take 20 mg by mouth | | 0 | | | | (LIPITOR) 20 mg | every morning. | | | | 9 | | tablet | | | | [...] | 3 | 06/16/20 | | | 10 MG tablet | mouth Daily. | tablet | | 19 | 9 | + + + +---------+ + + | CALCIUM PO | Take 1,000 mg by | | 0 | | | | | mouth Daily. | | | | 9 | + + + +---------+ + + | carvedilol (COREG) | Take 1 tablet by | 180 | 1 | 06/16/20 | | | 6.25 mg tablet | mouth 2 times daily | tablet | | 19 | 9 | | | (with breakfast & | | | | | | | dinner). | | | | | + + + +---------+ + + | cetirizine | Take 1 tablet by | 30 | 1 | 06/16/20 | | | (ZYRTEC) 10 mg | mouth Daily. | tablet [...] +---------+ + + | dicyclomine | Take 10 mg by mouth | | 0 | 06/12/20 | | | (BENTYL) 10 mg | Daily as needed for | | | 19 | 9 | | capsule | GI Upset. | | | | | + + [...] tablet by | 120 | 0 | 06/16/20 | | | HYDROcodone-acetamin | mouth 4 times daily | tablet | | 19 | 9 | | ophen (NORCO) | as needed [...] + + + +---------+ + + | loperamide | Take 2 mg by mouth | | 0 | | | | (IMODIUM A-D) 2 MG | Twice daily as | | | | 9 | | tablet | needed for Diarrhea. | | | | | + + [...] + + +---------+ + + | Multiple Vitamin | Take 1 tablet by | | 0 | | | | (MULTIVITAMIN) | mouth Daily. | | | | 9 | | tablet | | | | [...] predniSONE | Take 1 tablet by | 90 | 1 | 06/16/20 | | | (DELTASONE) 10 mg | mouth Daily. | tablet | | 19 | 9 | | tablet | | | | | | + + + +---------+ + + | senna (SENNA) 8.6 | Take 1 tablet by | 180 | 1 | 06/16/20 | | | mg tablet | mouth every morning. | tablet | | 19 | 9 | + + + +---------+ + + | tamsulosin | Take 1 capsule by | 90 | 1 | 06/16/20 | | | (FLOMAX) 0.4 mg CAPS | mouth nightly. | capsule | | 19 | 9 | + + + +---------+ + + | tiotropium | Inhale 1 capsule | 90 | 3 | 06/16/20 | | | (SPIRIVA) 18 mcg | into the lungs | capsule | | 19 | 9 | | inhalation capsule | Daily. 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), | | | | | | | Hypoxemia | | | | | | + + + +---------+ + + documented as of this encounter Plan of Treatment +--------+ + + + + | Date | Type | Specialty | Care Team | Description | +--------+ + + + + | 03/23/ | Office | Anticoagulation | García Harris, | | | 2020 | Visit | | [address] | | | | | | [place] | | | | | | [address] | | | | | | | | +--------+ + + + + | 04/11/ | Appointment | Radiology | Shawn Michael | | | 2019 | | | MD [address] | | | | | | [address] [place] | | | | | | [place] [address] | | | | | | [phone] | | | | | | | | +--------+ + + + + | 04/13/ | Office | Cardiology | Shawn Michael | | | 2019 | Visit | | MD [address] | | | | | | [address] [place] | | | | | | [place] [address] | | | | | | [phone] | | | | | | | | +--------+ + + + + + +------+--------+ + + | Name | Type | Priori | Associated Diagnoses | Date/Time | | | | ty | | | + +------+--------+ + + | ED INFORMATION | MICHAEL | Routin | | 07/14/2019 8:46 AM | | EXCHANGE | | e | | PDT | + +------+--------+ + + documented as of this encounter Procedures + +--------+ + + + | Procedure Name | Priori | Date/Time | Associated Diagnosis | Comments | | | ty | | | | + +--------+ + + + | RESPIRATORY VIRUS | STAT | 07/14/2019 | | Results for this | | ANTIGENS PROFILE | | 1:57 PM | | procedure are in the | | | | PDT | | results section. | + +--------+ + + + | PROCALCITONIN, SERUM | STAT | 07/14/2019 | | Results for this | | | | 10:00 AM | | procedure are in the | | | | PDT | | results section. | + +--------+ + + + | CBC WITH | STAT | 07/14/2019 | | Results for this | | DIFFERENTIAL | | 10:00 AM | | procedure are in the | | | | PDT | | results section. | + +--------+ + + + | B TYPE NATRIURETIC | STAT | 07/14/2019 | | Results for this | | PEPTIDE | | 10:00 AM | | procedure are in the | | | | PDT | | results section. | + +--------+ + + + | COMPREHENSIVE | STAT | 07/14/2019 | | Results for this | | METABOLIC PANEL | | 10:00 AM | | procedure are in the | | | | PDT | | results section. | + +--------+ + + + | URINALYSIS WITH | STAT | 07/14/2019 | | Results for this | | MICROSCOPIC | | 9:46 AM | | procedure are in the | | | | PDT | | results section. | + +--------+ + + + | XR CHEST PA AND | STAT | 07/14/2019 | | Results for this | | LATERAL | | 9:34 AM | | procedure are in the | | | | PDT | | results section. | + +--------+ + + + | ECG 12 LEAD | STAT | 07/14/2019 | | Results for this | | | | 9:09 AM | | procedure are in the | | | | PDT | | results section. | + +--------+ + + + documented in this encounter Results Respiratory pathogen panel, NAAT (07/14/2019 1:57 PM PDT) + + + + + + | Component | Value | Ref Range | Performed | Pathologist | | | | | At | Signature | + + + + + + | Parainfluen | Not Detected | Not Detected | [facility] | | | za 1 | | | [facility] | | [...] | | Metapneumov | | | [facility] | | | irus | | | MEDICAL | | | | | | CENTER - | | | | | | LABORATORY | | + + + + + + | Rhinovirus/ | Not Detected | Not Detected | [facility] | | | Enterovirus | | | [facility] | | | | | | MEDICAL | | | | | | CENTER - | | | | | | LABORATORY | | + + + + + + | Parainfluen | Not Detected | Not Detected | [facility] | | | za 3 | | | [facility] | | [...] + | [facility] | [address] | [place] | [phone] | | [facility] | | [address] | | | - LABORATORY | | | | + + + + + Procalcitonin (07/14/2019 10:00 AM PDT) + + + + + + | Component | Value | Ref Range | Performed | Pathologist | | | | | At | Signature | + + + + + + | Procalciton | <0.05 | <=0.50 ng/mL | [facility] | | | in | | | [facility] | | | | | | MEDICAL | | | | | | CENTER - | | | | | | LABORATORY | | + + + + + + | Comment | Comment: < 0.50 | | [facility] | | | | ng/mL:Procalcitonin | | [facility] | | | | levels below 0.50 [...] [address] | [place] | [phone] | | [facility] | | [address] | | | - LABORATORY | | | | + + + + + B Type Natriuretic Peptide (07/14/2019 10:00 AM PDT) + +---------+ + + + | Component | Value | Ref Range | Performed | Pathologist | | | | | At | Signature | + +---------+ + + + | BNP | 438 (H) | <100 pg/mL | [facility] | | | | | [...] + | [facility] | [address] | [place] | [phone] | | [facility] | | [address] | | | - LABORATORY | | | | + + + + + Comprehensive Metabolic Panel (07/14/2019 10:00 AM PDT) + + + + + + | Component | Value | Ref Range | Performed | Pathologist | | | | | At | Signature | + + + + + + | Na | 144 | 136 - 145 | [facility] | | | | | mmol/L | [facility] | | | | | | MEDICAL | | | | | | CENTER - | | | | | | LABORATORY | | + + + + + + | K | 3.7 | 3.4 - 5.1 | [facility] | | | | | mmol/L | [facility] | | | | [...] 17 | 9 - 23 mg/dL | [facility] | | | | | | [facility] | | | | | | MEDICAL | | | | | | CENTER - | | | | | | LABORATORY | | + + + + + + | Creatinine | 0.67 | 0.55 - 1.02 | [facility] | | | | | mg/dL | [facility] | | | | | | MEDICAL | | | | | | CENTER - | | | | | | LABORATORY | | + + + + + + | eGFR if not | >60Comment: GLOMERULAR | >=60 | [facility] | | | | FILTRATION | mL/min/1.73m2 | [facility] | | | [place] | RATE,ESTIMATED | | MEDICAL | | | | mL/min/1.62y2Jgzs than | | CENTER - | | [...] 8.7 | 8.7 - 10.4 | [facility] | | | | | mg/dL | [facility] | | | | | | MEDICAL | | | | | | CENTER - | | | | | | LABORATORY | | + + + + + + | Albumin | 3.2 | 3.2 - 4.8 g/dL | [facility] | | | | | | [facility] | | | | | | [facility] | | | | | | CENTER - | | | | | | LABORATORY | | + + + + + + | Bilirubin | 0.5 | 0.3 - 1.2 mg/dL | [facility] | | | Total | | | [facility] | | | | | | MEDICAL | | | | | | CENTER - | | | | | | LABORATORY | | + + + + + + | Total | 5.4 (L) | 5.7 - 8.2 g/dL | [facility] | | | Protein | | | [facility] | | | | | | MEDICAL | | | | | | CENTER - | | | | | | LABORATORY | | + + + + + + | AST | 15 | 0 - 34 U/L | [facility] | | | | | | [facility] | | | | | | MEDICAL | | | | | | CENTER - | | | | | | LABORATORY | | + + + + + + | ALT | 11 | 10 - 49 U/L | [facility] | | | | | | [facility] | | | | | | MEDICAL | | | | | | CENTER - | | | | | | LABORATORY | | + + + + + + | Alkaline | 99 | 46 - 116 U/L | [facility] [...] + + + + | BUN/Creatin | 25.4 | | [facility] | | | ine Ratio | | | [facility] | | | | | | [...] + + | [facility] | [address] | [place] | [phone] | | [facility] | | [address] | | | - LABORATORY | | | | + + + + + CBC with Differential (07/14/2019 10:00 AM PDT) + + + + + + | Component | Value | Ref Range | Performed | Pathologist | | | | | At | Signature | + + + + + + | WBC | 8.2 | 4.0 - 11.0 K/uL | [facility] | | | | | | [facility] | | | | | | MEDICAL | | | | | | CENTER - | | | | | | LABORATORY | | + + + + + + | RBC | 3.21 (L) | 3.70 - 5.20 | [facility] | | | | | M/uL | [facility] | | | | | | MEDICAL | | | | | | CENTER - | | | | | | LABORATORY | | + + + + + + | Hemoglobin | 9.3 (L) | 11.5 - 16.0 | [facility] | | | | | g/dL | [facility] | | | | | | MEDICAL | | | | | | CENTER - | | | | | | LABORATORY | | + + + + + + | Hematocrit | 30.5 (L) | 34.0 - 47.0 % | [facility] | | | | | | [facility] | | | | | | MEDICAL | | | | | | CENTER - | | | | | | LABORATORY | | + + + + + + | MCV | 95.0 | 83.0 - 101.0 fL | [facility] | | | | | | [facility] | | | | | | MEDICAL | | | | | | CENTER - | | | | | | LABORATORY | | + + + + + + | MCH | 29.0 | 28.0 - 35.0 pg | [facility] [...] + + + + | RDW-CV | 14.6 | <15.0 % | [facility] | | | | | | [facility] | | | | | | MEDICAL | | | | | | CENTER - | | | | | | LABORATORY | | + + + + + + | RDW-SD | 51.4 (H) | 35.1 - 46.3 fL | [facility] | | | | | | [facility] | | | | | | MEDICAL | | | | | | CENTER - | | | | | | LABORATORY | | + + + + + + | Platelet | 140 | 140 - 440 K/uL | [facility] [...] | Low IPF are consistent | | [facility] | | | Fraction | with a production | | MEDICAL | | | | disorder. Low PLT + High | | CENTER - | | | | IPF are consistent with | | LABORATORY | | | | increased platelet | | | | | | destruction. | | | | + + + + + + | % | 73.2 | 45.0 - 82.0 % | [facility] | | | Neutrophils | | | [facility] | | | | | | MEDICAL | | | | | | CENTER - | | | | | | LABORATORY | | + + + + + + | % | 12.0 (L) | 20.0 - 45.0 % | [facility] | | | Lymphocytes | | | [facility] | | | | | | MEDICAL | | | | | | CENTER - | | | | | | LABORATORY | | + + + + + + | % Monocytes | 11.6 | 4.0 - 12.0 % | [facility] | | | | | | [facility] | | | | | | MEDICAL | | | | | | CENTER - | | | | | | LABORATORY | | + + + + + + | % | 2.6 | 0.0 - 5.0 % | [facility] [...] + + + + | Absolute | 5.99 | 1.80 - 8.50 | [facility] | | | Neutrophils | | K/uL | [facility] | | | | | | MEDICAL | | | | | | CENTER - | | | | | | LABORATORY | | + + + + + + | Absolute | 0.98 | 0.60 - 3.20 | [facility] | | | Lymphocytes | | K/uL | [facility] | | | | | | MEDICAL | | | | | | CENTER - | | | | | | LABORATORY | | + + + + + + | Absolute | 0.95 | 0.00 - 1.00 | [facility] | | | Monocytes | | K/uL | [facility] | | | | | | MEDICAL | | | | | | CENTER - | | | | | | LABORATORY | | + + + + + + | Absolute | 0.21 | 0.00 - 0.40 | [facility] | | | Eosinophils | | K/uL | [facility] | | | | | | MEDICAL | | | | | | CENTER - | | | | | | LABORATORY | | + + + + + + | Absolute | 0.03 | 0.00 - 0.10 | [facility] | | | Basophils | | K/uL | [facility] | | | | | | MEDICAL | | | | | | CENTER - | | | | | | LABORATORY | | + + + + + + | Absolute | 0.02 | 0.00 - 0.03 | [facility] | | | Immature | | K/uL | [facility] | | | Granulocyte | | [...] | nRBC | | K/uL | [facility] | [...] [address] | [place] | [phone] | | [facility] | | [address] | | | - LABORATORY | | | | + + + + + Urinalysis With Microscopic (07/14/2019 9:46 AM PDT) + + + + + [...] - 1.030 | [facility] | | | [place], | | | [facility] | | [...] + + + + | Urobilinoge | 2.0 mg/dL (A) | 0.2 mg/dL, 1.0 | [facility] | [...] (A) | 0 - 2 /LPF | [facility] | | | [place], | | | [facility] | | | Urine | | | MEDICAL | | | | | | CENTER - | | | | | | LABORATORY | | + + + + + + + + | Specimen | + + | Urine - Urine | | specimen obtained | | via indwelling | | urinary catheter | | (specimen) | + + + + + + + | Performing | Address | City/State/Zipcode | Phone Number | | Organization | | | | + + + + + | [facility] | [address] | [place] | [phone] | | [facility] | | [address] | | | - LABORATORY | | | | + + + + + XR Chest PA and Lateral (07/14/2019 9:34 AM PDT) + + | Specimen | + + | | + + + + + | Narrative | Performed At | + + + | EXAM: XR CHEST PA AND LATERAL dated 07/14/2019 9:33 AM HISTORY: | [facility] | | Chest Pain Comparison: 07/06/2019 TECHNIQUE: Frontal and | | | lateral views of the chest. FINDINGS: The lungs are symmetrically | | | aerated. Reticular opacities are present in the lateral right | | | lower lobe There are no pleural effusions. There is no | | | pneumothorax. Stable cardiac contour. Stable prominent central | | | pulmonary arteries. The visible osseous structures are | | | unremarkable. IMPRESSION - Reticular opacities in the | | | lateral right lower lobe. These may represent atelectasis or an | | | infiltrate. Dictated and Signed by: Edwin Jarrell MD | | | Electronically signed: 07/14/2019 9:44 AM | | + + + + + | Procedure Note | + + | Kobe, Rad Results In - 07/14/2019 9:47 AM PDT EXAM: XR CHEST PA AND LATERAL dated | | 07/14/2019 9:33 AMHISTORY: Chest PainComparison: 07/06/2019TECHNIQUE: Frontal and lateral | | views of the chest.FINDINGS:The lungs are symmetrically aerated. Reticular opacities | | are present in thelateral right lower lobe There are no pleural effusions. There is | | nopneumothorax. Stable cardiac contour. Stable prominent central pulmonaryarteries. | | The visible osseous structures are unremarkable. IMPRESSION -Reticular opacities in the | | lateral right lower lobe. These may representatelectasis or an infiltrate.Dictated and | | Signed by: Edwin Jarrell MD Electronically signed: 07/14/2019 9:44 AM | |FINDINGS: | |The lungs are symmetrically aerated. Reticular opacities are present in the | |lateral right lower lobe There are no pleural effusions. There is no | |pneumothorax. Stable cardiac contour. Stable prominent central pulmonary | |arteries. The visible osseous structures are unremarkable. | | | |IMPRESSION - | | | |Reticular opacities in the lateral right lower lobe. These may represent | |atelectasis or an infiltrate. | | | |Dictated and Signed by: Edwin Jarrell MD | | Electronically signed: 07/14/2019 9:44 AM | + + + +---------+ + + | Performing | Address | City/State/Zipcode | Phone Number | | Organization | | | | + +---------+ + + | [facility] | | | | + +---------+ + + ECG 12 lead (07/14/2019 9:09 AM PDT) + + + + + + | Component | Value | Ref Range | Performed | Pathologist | | | | | At | Signature | + + + + + + | VENTRICULAR | 103 | BPM | [facility] | | | RATE EKG | | | | | + + + + + + | ATRIAL RATE | 103 | BPM | [facility] | | [...] + + + + | Q-T | 314 | ms | [facility] | | | INTERVAL | | | | | + + + + + + | Q-T | 411 | ms | [facility] | | | INTERVAL | | | | | | (CORRECTED) | | | | | + + + + + + | P WAVE AXIS | 65 | degrees | [facility] | | + + + + + + | QRS AXIS | 65 | degrees | [facility] | | + + + + + + | T AXIS | 76 | degrees | [facility] | | + + + + + + | INTERPRETAT | Sinus | | [facility] | | | ION TEXT | tachycardiaModerate | | | | | | voltage criteria for | | | | | | LVH, may be normal | | | | | | variantBorderline | | | | | | ECGWhen compared with | | | | | | ECG of 06-JUL-2019 | | | | | | 15:24,No significant | | | | | | change was | | | | | | foundConfirmed by | | | | | | LEONIDAS CALVO MD ([id number]) | | | | | | on 07/15/2019 6:10:46 AM | | | | | | | [...] + | Diagnosis | + + | Upper respiratory tract infection, unspecified type - Primary | + + | Hypervolemia, unspecified hypervolemia type | + + | Chronic obstructive pulmonary disease, unspecified COPD type (HCC) | + + documented in this encounter Administered Medications + +--------+ +-------+------+------+ | Medication Order | MAR | Action | Dose | Rate | Site | | | Action | Date | | | | + +--------+ +-------+------+------+ | albuterol-ipratropium 2.5-0.5 | Given | 07/14/20 | 3 mLs | | | | mg/3 mL nebulizer solution 3 mL | | 19 2:52 | | | | | 3 mL, Nebulization, RT Once, Wed | | PM PDT | | | | | 07/14/19 at 1435, For 1 dose | | | | | | + +--------+ +-------+------+------+ +---+---+ | | | +---+---+ + +-------+ +-------+---+---+ | furosemide (LASIX) injection 40 | Given | 07/14/20 | 40 mg | | | | mg 40 mg, Intravenous, ONCE, | | 19 2:04 | | | | | 07/14/19 at 1240, For 1 dose | | PM PDT | | | | + +-------+ +-------+---+---+ +---+---+ | | | +---+---+ + +-------+ +--------+---+---+ | methylPREDNISolone sodium | Given | 07/14/20 | 125 mg | | | | succinate (solu-MEDROL) 62.5 | | 19 2:43 | | | | | mg/mL injection 125 mg 125 mg, | | PM PDT | | | | | Intravenous, ONCE, 07/14/19 at | | | | | | | 1435, For 1 dose, Mix with 2 mL | | | | | | | provided diluent to make 62.5 | | | | | | | mg/mL., | | | | | | + +-------+ +--------+---+---+ +---+---+ | | | +---+---+ documented in this encounter Additional Health Concerns + + + + | Infection | Noted Time | Resolved Time | + + + + | Methicillin-resistant Staphylococcus aureus | 06/08/2019 9:39 AM | | | | PDT | | + + + + documented as of this encounter
--- OUTSIDE RECORDS SUMMARY | ~2020-03-14 | XMS | Encounter Summary ---
Demographics + + + | Address | [address] | | | [place] [address] | + + + | Home Phone | | + + + | Preferred Language | Unknown | + + + | Marital Status | | + + + | Yarsanism Affiliation | Unknown | + + + | Race | Unknown | + + + | Ethnic Group | Unknown | + + + Author + + + | Author | [facility] | | | and [place] | + + + | Organization | [facility] | | | and [...] Team Providers + +------+ + | Care Circle Edger Name | Role | Phone | + +------+ + | Candido Link | PCP | | | MD | | | + +------+ + Encounter Details +--------+---------+ + + + | Date | Type | Department | Care Team | Description | +--------+---------+ + + + | 07/18/ | Office | [facility] | | Canceled (OTHER) | | 2019 | Visit | CARE [address] | | | | | | [place] | | | | | | [address] | | | | | | [phone] | | | +--------+---------+ + + + Social History [...] | 2020 | Visit | | [address] [place] [address] | | | | | | [place] | | | | | | [address] | | | | | | | | +--------+ + + + + | 07/07/ | Appointment | Radiology | Shawn Michael | | | 2019 | | | MD Marcel[place] [address] | | | | | | [address] [place] | | | | | | [place] [address] | | | | | | [phone] | | | | | | | | +--------+ + + + + | 04/13/ | Office | Cardiology | Sahwn Michael | | | 2019 | Visit | | MD [place] [address] | | | | | | [address] [place] | | | | | | [place] [address] | | | | | | [phone] | | | | | | | [...]
--- OUTSIDE RECORDS SUMMARY | ~2020-03-14 | XMS | Encounter Summary ---
Demographics + + + | Address | [address] | | | [place] [address] | + + + | Home Phone | | + + + | Preferred Language | Unknown | + + + | Marital Status | | + + + | Adventism Affiliation | Unknown | + + + [...] Team Providers + +------+ + | Care Peoplesoft Programmer Name | Role | Phone | + +------+ + | Candido Link | PCP | | | MD | | | + +------+ + Reason for Visit +--------+ + | Reason | Comments | +--------+ + | Fall | | +--------+ + Encounter Details +--------+ + + + + | Date | Type | Department | Care Team | Description | +--------+ + + + + | 09/09/ | Emergency | [facility] | Virgilio Menezes, | Hematoma of left | | 2019 | | [facility] | MD [address] | parietal scalp, | | | | CENTER [address] | [place], [place] | initial encounter | | | | [place], [place] | [address] | (Primary Dx); Skin | | | | [address] | | tear of left lower | | | | [phone] | Sammy Milan | leg without | | | | | DO Francesco [address] | complication, | | | | | [address] [place] | initial encounter | | | | | [place] [address] | | | | | | [phone] | | | | | | | [...] + + + | Blood Pressure | 157/69 | 09/09/2019 6:29 AM | | | | | PST | | + + + + + | Pulse | 89 | 09/09/2019 8:00 AM | | | | | PST | | + + + + + | Temperature | 36.6 C (97.9 F) | 09/09/2019 5:17 AM | | | | | PST | | + + + + + | Respiratory Rate | 18 | 09/09/2019 8:00 AM | | | | | PST | | + + + + + | Oxygen Saturation | 99% | 09/09/2019 8:00 AM | | | | | PST | | + + + + + | Inhaled Oxygen | - | - | | | Concentration | | | | + + + + + | Weight | 56.7 kg (125 lb) | 09/09/2019 5:17 AM | | | | | PST | | + + + + + | Height | 165.1 cm (5' 5") | 09/09/2019 5:17 AM | | | | | PST | | + + + + + | Body Mass Index | 20.8 | 09/09/2019 5:17 AM | | | | | PST | | + + + + + documented in this encounter Discharge Instructions AttachmentsThe following attachments cannot be sent through Care Everywhere.Scalp Contusion ([place]izen [place])documented in this encounter Medications at Time of [...] | | | | | | type ([facility]) | | | | | | + [...] tablet by | 60 | 0 | 09/08/20 | | | 12.5 mg tablet | mouth 2 times daily | tablet | | 19 | 0 [...] + + + +---------+ + + | ertapenem (INVanz) | Inject 1 g into the | 10 each | 0 | 09/09/20 | | | IVPB (custom dose) | vein every 24 hours. | | | 19 | 0 | | 1 gIndications: | Indications: Acute | | | | | | Acute Abdominal | Abdominal Condition | | | | | | Condition | | | | | | + + + +---------+ + + | escitalopram | Take 1 tablet by | 30 | 3 | 08/12/20 | | | (LEXAPRO) 5 MG | mouth Daily. | tablet | | 19 | 0 | | tabletIndications: | | | | | | | ANASTASIA (generalized | | | | | | | anxiety disorder) | | | | | | + [...] | | Take 1 tablet by | 100 | 0 | 08/13/20 | | | HYDROcodone-acetamin | mouth every 8 hours | tablet | | 19 | 9 [...] + + + +---------+ + + | SPIRIVA HANDIHALER | Inhale 18 mcg into | | 3 | 09/09/20 | | | 18 MCG inhalation | the lungs Daily. 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 [address] | | | | | | [place] | | | | | | [address] | | | | | | | | +--------+ + + + + | 04/11/ | Appointment | Radiology | Shawn Michael | | | 2019 | | | MD [address] | | | | | | [address] [place] | | | | | | [place] [address] | | | | | | [phone] | | | | | | | | +--------+ + + + + | 04/13/ | Office | Cardiology | Shawn Michael | | | 2019 | Visit | | MD [address] | | | | | | [address] [place] | | | | | | [place] [address] | | | | | | [phone] | | | | | | | | +--------+ + + + + + +------+--------+ + + | Name | Type | Priori | Associated Diagnoses | Date/Time | | | | ty | | | + +------+--------+ + + | ED INFORMATION | MICHAEL | Routin | | 09/09/2019 5:15 AM | | EXCHANGE | | e | | PST | + +------+--------+ + + documented as of this encounter Procedures + +--------+ + + + | Procedure Name | Priori | Date/Time | Associated Diagnosis | Comments | | | ty | | | | + +--------+ + + + | CT HEAD WO CONTRAST | STAT | 09/09/2019 | | Results for this | | | | 6:13 AM | | procedure are in the | | | | PST | | results section. | + +--------+ + + + documented in this encounter Results CT Head wo Contrast (09/09/2019 6:13 AM PST) + + | Specimen | + + | | + + + + + | Impressions | Performed At | + + + | No CT evidence for an acute intracranial process. Small left | [facility] | | parietal scalp hematoma. Evidence of remote ischemia. The | | | pulmonary report is provided by Dr. Gustafson on 09/09/2018 at 6:22 AM. | | | Dictated and Signed by: Edwin Jarrell MD Electronically | | | signed: 09/09/2019 9:09 AM | | + + + + + + | Narrative | Performed At | + + + | EXAM: CT HEAD WO CONTRAST dated 09/09/2019 6:05 AM HISTORY: | [facility] | | Head trauma, minor (Age > 65y) Comparison: 08/01/2019 | | | TECHNIQUE: Noncontrast CT is performed from the top of calvarium | | | through the skull base. Coronal and sagittal reformats are | | | performed. DOSE: DLP 735.38 mGy-cm FINDINGS: BRAIN: | | | Ventricles, sulci and cisterns are unremarkable for age. No areas of | | | increased attenuation to suggest intracranial hemorrhage. There is | | | no mass, mass effect, or midline shift. There are no abnormal | | | extra-axial fluid or air collections. There is preservation of the | | | benitez-white differentiation at this time. There is moderate patchy | | | to confluent decreased density in the periventricular and subcortical | | | white matter. 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 SCALP/ | | | CALVARIUM: There is a small left parietal scalp hematoma. No | | | underlying calvarial fracture. SINUSES / ORBITS/ MASTOIDS: The | | | visible mastoid air cells and paranasal sinuses are clear. The | | | globes and retroconal contents are intact and are unremarkable. | | + + + + + | Procedure Note | + + | Kobe, Rad Results In - 09/09/2019 9:12 AM PST EXAM: CT HEAD WO CONTRAST dated | | 09/09/2019 6:05 AMHISTORY: Head trauma, minor (Age > 65y)Comparison: | | 08/01/2019TECHNIQUE: Noncontrast CT is performed from the top of calvarium through | | theskull base. Coronal and sagittal reformats are performed.DOSE: DLP 735.38 | | mGy-cmFINDINGS: BRAIN: Ventricles, sulci and cisterns are unremarkable for age. No | | areas ofincreased attenuation to suggest intracranial hemorrhage. There is no mass,mass | | effect, or midline shift. There are no abnormal extra-axial fluid or aircollections. | | There is preservation of the benitez-white differentiation at thistime. There is moderate | | patchy to confluent decreased density in theperiventricular and subcortical white | | matter. Multiple small foci ofhypodensity in the basal ganglia bilaterally consistent | | with remote infarcts. SCALP/ CALVARIUM: There is a small left parietal scalp hematoma. | | No underlyingcalvarial fracture.SINUSES / ORBITS/ MASTOIDS: The visible mastoid air | | cells and paranasal sinusesare clear. The globes and retroconal contents are intact and | | are unremarkable.IMPRESSION: No CT evidence for an acute intracranial process.Small | | left parietal scalp hematoma.Evidence of remote ischemia.The pulmonary report is | | provided by Dr. Gustafson on 09/09/2018 at 6:22 AM.Dictated and Signed by: Edwin Jarrell MD | | Electronically signed: 09/09/2019 9:09 AM | |time. There is moderate patchy to confluent decreased density in the | |periventricular and subcortical white matter. Multiple small foci of | |hypodensity in the basal ganglia bilaterally consistent with remote infarcts. | | | |SCALP/ CALVARIUM: There is a small left parietal scalp hematoma. No underlying | |calvarial fracture. | | | |SINUSES / ORBITS/ MASTOIDS: The visible mastoid air cells and paranasal sinuses | |are clear. The globes and retroconal contents are intact and are unremarkable. | | | |IMPRESSION: | | | |No CT evidence for an acute intracranial process. | | | |Small left parietal scalp hematoma. | | | |Evidence of remote ischemia. | | | |The pulmonary report is provided by Dr. Gustafson on 09/09/2018 at 6:22 AM. | | | | | | | | | |Dictated and Signed by: Edwin Jarrell MD | | Electronically signed: 09/09/2019 9:09 AM | + + + +---------+ + + | Performing | Address | City/State/Zipcode | Phone Number | | Organization | | | | + +---------+ + + | [facility] | | | | + +---------+ + + documented in this encounter Visit Diagnoses + + | Diagnosis | + + | Hematoma of left parietal scalp, initial encounter - Primary | + + | Skin tear of left lower leg without complication, initial encounter | + + documented in this encounter Administered Medications + +--------+ +--------+------+------+ | Medication Order | MAR | Action | Dose | Rate | Site | | | Action | Date | | | | + +--------+ +--------+------+------+ | acetaminophen (TYLENOL) tablet | Given | 09/09/20 | 650 mg | | | | 650 mg 650 mg, Oral, ONCE, Zofia | | 19 7:40 | | | | | 09/09/19 at 0715, For 1 dose | | AM PST | | | | + +--------+ +--------+------+------+ +---+---+ | | | +---+---+ documented in this encounter Additional Health Concerns + + + + | Infection | Noted Time | Resolved Time | + + + + | Methicillin-resistant Staphylococcus aureus | 06/08/2019 9:39 AM | | | | PDT | | + + + + documented as of this encounter
--- OUTSIDE RECORDS SUMMARY | ~2020-03-14 | XMS | Encounter Summary ---
Demographics + + + | Address | [address] | | | [place] [address] | + + + | Home Phone | | + + + | Preferred Language | Unknown | + + + | Marital Status | | + + + | Mormonism Affiliation | Unknown | + + + | Race | Unknown | + + + | Ethnic Group | Unknown | + + + Author + + + | Author | [facility] | | | and [place] | + + + | Organization | [facility] | | | [...] Team Providers + +------+ + | Care Solar Electric Installer Name | Role | Phone | + [...] | 11/30/ | Home Care | [facility] [place] | Emily Reynolds, PT | CASE COMMUNICATION | | 2020 | Visit | [place] [address] | | | | | | [place] | | | | | | [address] | | | | | | [phone] | | | +--------+ + + + [...] | | | | | [place] [address] | | | | | | [phone] | | | | | | | | +--------+ + + + + | 04/13/ | Office | Cardiology | Shawn Michael | | 2019 | Visit | | MD Marcelino [address] | | | | | | [address] | | | | | | [place] [address] | | | | | | [phone] | | | | | | | [...] | UTC | + + + + | Rule out Respiratory Infection | 12/01/2019 2:46 PM | 12/01/2019 9:03 PM | | | PST | PST | + + + + | Rhinovirus/Enterovirus (respiratory) | 12/01/2019 9:03 PM | 12/11/2019 11:56 AM | | | PST | UTC | + + + + documented as of this encounter"
--- OUTSIDE RECORDS SUMMARY | ~2020-03-14 | XMS | Encounter Summary ---
Demographics + + + | Address | [address] | | | [place] [address] | + + + | Home Phone | | + + + | Preferred Language | Unknown | + + + | Marital Status | | + + + | Cheondoism Affiliation | Unknown | + + + | Race | Unknown | + + + | Ethnic Group | Unknown | + + + Author + + + | Author | [facility] | | | and [place] | + + + | Organization | [facility] | | [...] Team Providers + +------+ + | Care Manager Cardiology Name | Role | Phone | + [...] | +--------+ + + + + | 12/02/ | Home Care | [facility] [place] | Sam Quintanilla, | TELEPHONE ENCOUNTER | | 2020 | Visit | [place] [address] | CARROT GRADER INSPECTOR [address] | | | | | [place] | [place] | | | | | [address] | [address] | | | | | [phone] | | | +--------+ + + + [...] | | | | | [place] [address] | | | | | | [phone] | | | | | | | | +--------+ + + + + | 04/13/ | Office | Cardiology | Shawn Michael | | | 2019 | Visit | | MD Marcelino [address] | | | | | | [address] [place] | | | | | | [place] [address] | | | | | | [phone] | | | | | | | [...] UTC | + + + + | Rhinovirus/Enterovirus (respiratory) | 12/01/2019 9:03 PM | 12/11/2019 11:56 AM | | | PST | UTC | + + + + documented as of this encounter"
--- OUTSIDE RECORDS SUMMARY | ~2020-03-14 | XMS | Encounter Summary ---
Demographics + + + | Address | [address] | | | [place] [address] | + + + | Home Phone | | + + + | Preferred Language | Unknown | + + + | Marital Status | | + + + | Taoist Affiliation | Unknown | + + + | Race | Unknown | + + + | Ethnic Group | Unknown | + + + Author + + + | Author | [facility] | | | and [place] | + + + | Organization | [facility] | | | [...] Team Providers + +------+ + | Care Edging Machine Operator Name | Role | Phone | [...] + | 01/17/ | Home Care | [facility] [place] | Bernardo Souza | OT REPEAT VISIT | | 2019 | Visit | [place] [address] | [place], [place] | | | | | [place] | | | | | | [address] | | | | | | [phone] | | | +--------+ + + + [...] [place] | | | | | | [address] | | | | | | | | +--------+ + + + + | 04/11/ | Appointment | Radiology | Shawn Michael | | | 2019 | | | MD [address] | | | | | | [address] | | | | | | [place] [address] | | | | | | [phone] | | | | | | | | +--------+ + + + + | 04/13/ | Office | Cardiology | Shawn Michael | | 2019 | Visit | | MD [address] | | | | | | [address] | | | | | | [place] [address] | | | | | | [phone] | | | | | | | [...] Plan + + | Visit Type - OT - REPEAT VISIT | | Discipline - Occupational Therapy | + + + + +--------+--------+ + + | Problem | Description | Start | Status | Goals | Interventio | | | | Date | | | ns | + + +--------+--------+ + + | HH SHARED PAIN | Pain | | | 1 goal | 2 goal | | Disciplines: | | 01/11/20 | Active | linked to | interventio | | Occupational Therapy | | 20 | | scheduled/d | ns | | | | | | ocumented | scheduled/d | | | | | | interventio | ocumented | | | | | | n | in this | | | | | | | visit | + + +--------+--------+ + + | Impaired ROM | Impaired ROM | | | 1 goal | 1 goal | | Disciplines: | | 01/11/20 | Active | linked to | interventio | | Occupational Therapy | | 20 | | scheduled/d | n | | [...] | | No | | | Description: In 4 | | | | | | weeks, The patient | | | | | | and/or caregiver | | | | | | will verbalize | | | | | | understanding of | | | | | | pain management | | | | | | strategies | | | | | | Outcomes: The | | | | | | patient will be able | | | | | | to complete ADLs | | | | | | with decreased | | | | | | symptoms of pain. | | | | | + + +--------+-------+ + | HH OT ROM | Impaired ROM | | No | | | Description: In 4 | | | | | | weeks, The patient's | | | | | | R shoulder ROM will | | | | | | grossly improve to | | | | | | WFL within a pain | | | | | | free zone. Outcomes: | | | | | | The patient's ROM | | | | | | will improve to | | | | | | allow increased | | | | | | independence with | | | | | | ADLs. | | | | | + + +--------+-------+ + + + +--------+--------+ + | Intervention | Associated | Status | Varian | Visit Notes | | | Problem/Goal | | ce | | + + +--------+--------+ + | Instruct in | Problem: HH SHARED | | | | | Exercise/Mobility | PAINGoal: PAIN | Comple | | | | for Pain | | yoel | | | | Description: | | | | | | Monitor pain and | | | | | | instruct the patient | | | | | | and/or caregiver | | | | | | regarding the use of | | | | | | exercise and | | | | | | mobility for pain | | | | | | management. | | | | | + + +--------+--------+ + | Monitor and | Problem: HH SHARED | | | | | Address Pain | PAINGoal: PAIN | Comple | | | | Description: | | yoel | | | | Monitor and address | | | | | | pain through likert | | | | | | pain scale. | | | | | + + +--------+--------+ + | ROM Training | Problem: Impaired | | | | | Description: | ROMGoal: OT ROM | Comple | | | | Skilled techniques, | | yoel | | | | therapeutic | | | | | | exercise, and home | | | | | | exercise program to | | | | | | restore optimal | | | | | | range of motion. | | | | | + + +--------+--------+ + documented in this encounter"
--- OUTSIDE RECORDS SUMMARY | ~2020-03-14 | XMS | Encounter Summary ---
Demographics + + + | Address | [address] | | | [place] [address] | + + + | Home Phone | | + + + | Preferred Language | Unknown | + + + | Marital Status | | + + + | Oriental Orthodox Affiliation | Unknown | + + + | Race | Unknown | + + + | Ethnic Group | Unknown | + + + Author + + + | Author | [facility] | | | and [place] | + + + | Organization | [facility] | | [...] Team Providers + +------+ + | Care Technical Associate Name | Role | Phone | + +------+ + | Candido Link | PCP | | | MD | | | + +------+ + Reason for Visit + + + | Reason | Comments | + + + | Fall | | + + + | Arm Laceration | skin tear | + + + | Leg Laceration | sin tear | + + + Encounter Details +--------+ + + + + | Date | Type | Department | Care Team | Description | +--------+ + + + + | 03/03/ | Emergency | [facility] | Pj, | Fall, initial | | 2019 | | [facility] | MD Marcel 101 | encounter (Primary | | | | CENTER [address] | [address] [place] [address] | Dx); Contusion of | | | | [place], [place] | [place] [address] | forehead, initial | | | | [address] | [phone] | encounter; Multiple | | | | [phone] | | skin tears; | | | | | | Decubitus ulcer of | | | | | | coccygeal region, | | | | | | unspecified ulcer | | | | | | stage | +--------+ + + + + Social [...] + + + | Blood Pressure | 126/74 | 03/03/2020 10:15 AM | | | | | PDT | | + + + + + | Pulse | 84 | 03/03/2020 10:15 AM | | | | | PDT | | + + + + + | Temperature | 37.1 C (98.8 F) | 03/03/2020 9:13 AM | | | | | PDT | | + + + + + | Respiratory Rate | 16 | 03/03/2020 6:00 AM | | | | | PDT | | + + + + + | Oxygen Saturation | 99% | 03/03/2020 10:15 AM | | | | | PDT [...] Discharge Instructions Instructions Marcel Oliva MD - 03/03/2020Head CT was unremarkable no signs of intrac ranial bleed. Chest x-ray did not show an organized pneumonia. Lab work was reassuring wit h the exception of a slightly increasing white count, but this can be related to either infe ction, stress, even steroids. Continue with dressing changes to the wound at the coccyx. F ollow-up with your doctor for reevaluation the next couple of days as scheduled. We are dis charging you home at your request. Return for any other concerns. CT scans of the elbow and knee did not show any fractures. Follow up with Dr. Ruiz if ne eded for the orthopedic complaints. If you are improving , you do not need to follow up wit Dr. Ruiz. Thank you for visiting [facility]. Please follow up with your [...] by | 60 vial | 0 | //20 | | | mL nebulizer | nebulization [...] by | 120 mL | 3 | 01/03/20 | | | (BROVANA) 15 MCG/2ML | nebulization Twice | | | 20 | | | NEBUIndications: | Daily. Length: | | | | | | Chronic obstructive | Lifetime, Dx: J44.9 | | | | | | pulmonary disease, | | | | | | | unspecified COPD | | | | | | | type ([facility]) | | | | | [...] tablet by | 60 | 0 | 03/02/20 | | | 6.25 mg tablet | mouth 2 times daily | tablet | | 20 | 0 | | | (with breakfast & | | | | | | | dinner) for 30 days. | | | | | + + [...] the area of | | 0 | 05/21/20 | | | (SANTYL) ointment | tissue [...] | nystatin | | | 0 | 02/24/20 | | | (MYCOSTATIN) [id number] | | | | 20 | | [...] | | 0 | | | | ([facility]) 0.65% nasal | Nare route. two [...] documented as of this encounter Progress Notes Meek Finnegan Chaplain - 03/03/2020 11:07 AM PDT Spiritual Care Ángela Crowley is a 89 y.o. female who is admitted following a fall at home. Son, Yadiel, is parked outside ED entrance awaiting mom's discharge. He appears agitated a nd complains that he was given a time for pick-up, and that time is long overdue. S am visited with son, took contact information, and notified RN, Yahir, that son would like to speak with Dr order checker packer processer who can explain why there is a delay in discharge. Dr. Oliva, RN Yahir, and Copywriter Miguel Ángel went out to update the son. documented in this encounter Plan of Treatment +--------+ + + + + | Date | Type | Specialty | Care Team | Description | +--------+ + + + + | 03/23/ | Office | Anticoagulation | García Harris, | | 2019 | Visit | | GRANULATOR TENDER [address] | | | | | | [place] | | | | | | [address] | | | | | | | | +--------+ + + + + | 04/11/ | Appointment | Radiology | Shawn Michael | | | 2019 | | | MD [address] | | | | | | [address] [place] | | | | | | [place] [address] | | | | | | [phone] | | | | | | | | +--------+ + + + + | 04/13/ | Office | Cardiology | Shawn Michael | | | 2019 | Visit | | MD [address] | | | | | | [address] [place] | | | | | | [place] [address] | | | | | | [phone] | | | | | | | | +--------+ + + + + + +------+--------+ + + | Name | Type | Priori | Associated Diagnoses | Date/Time | | | | ty | | | + +------+--------+ + + | ED INFORMATION | MICHAEL | Routin | | 03/03/2020 5:52 AM | | EXCHANGE | | e [...] + documented in this encounter Results CT Knee Left wo Contrast (03/03/2020 1:48 [...] XR Chest AP Portable (03/03/2020 9:54 AM PDT) + + | Specimen | [...] B Type Natriuretic Peptide (03/03/2020 9:47 AM PDT) + + + + + + | Component | Value | Ref Range | Performed | Pathologist | | | | | At | Signature | + + + + + + | BNP | 535 (H)Comment: New | <100 pg/mL | [facility] | | | | method in use as of | | [facility] | | | | December [...] [address] | [place] | [phone] | | [facility] | | [address] | | | - LABORATORY | | | | + + + + + Comprehensive Metabolic Panel (03/03/2020 9:47 AM PDT) + + + + [...] 21 | 9 - 23 mg/dL | [facility] | | | | | | [facility] | | | | | | MEDICAL | | | | | | CENTER - | | | | | | LABORATORY | | + + + + + + | Creatinine | 0.80 | 0.55 - 1.02 | [facility] | | | | | mg/dL | [facility] | | | | | | MEDICAL | | | | | | CENTER - | | | | | | LABORATORY | | + + + + + + | eGFR if not | >60Comment: GLOMERULAR | >=60 | [facility] | | | | FILTRATION | mL/min/1.73m2 | [facility] | | | GABONESE | RATE,ESTIMATED | | MEDICAL | | | | mL/min/1.22q6Immj than | | CENTER - | | [...] (L) | 3.2 - 4.8 g/dL | [facility] | | | | | [facility] | | | | | | MEDICAL | | | | | | CENTER - | | | | | | LABORATORY | | + + + + + + | Bilirubin | 0.5 | 0.3 - 1.2 mg/dL | [facility] | | | Total | | | [facility] | | [...] | | | Phosphatase | | | [facility] | | [...] [address] | [place] | [phone] | | [facility] | | [address] | | | - LABORATORY | | | | + + + + + CBC with Differential (03/03/2020 9:47 AM PDT) + + + + [...] + + + + | RBC | 3.84 | 3.70 - 5.20 | [facility] | | | | | M/uL | [facility] | | | | | | MEDICAL | | | | | | CENTER - | | | | | | LABORATORY | | + + + + + + | Hemoglobin | 11.6 | 11.5 - 16.0 | [facility] | | | | | g/dL | [facility] | | | | | | MEDICAL | | | | | | CENTER - | | | | | | LABORATORY | | + + + + + + | Hematocrit | 37.1 | 34.0 - 47.0 % | [facility] | | | | | | [facility] | | | | | | MEDICAL | | | | | | CENTER - | | | | | | LABORATORY | | + + + + + + | MCV | 96.6 | 83.0 - 101.0 fL | [facility] | | | | | | [facility] | | | | | | MEDICAL | | | | | | CENTER - | | | | | | LABORATORY | | + + + + + + | MCH | 30.2 | 28.0 - 35.0 pg | [facility] [...] + + + + | RDW-CV | 17.9 (H) | <15.0 % | [facility] | | | | | | [facility] | | | | | | MEDICAL | | | | | | CENTER - | | | | | | LABORATORY | | + + + + + + | RDW-SD | 63.0 (H) | 35.1 - 46.3 fL | [facility] | | | | | | [facility] | | | | | | MEDICAL | | | | | | CENTER - | | | | | | LABORATORY | | + + + + + + | Platelet | 200 | 140 - 440 K/uL | [facility] | | | Count | | | [facility] | | | | | | MEDICAL | | | | | | CENTER - | | | | | | LABORATORY | | + + + + + + | MPV | 10.2 | 6.5 - 12.4 fL | [facility] | | | | | | [facility] | | | | | | MEDICAL | | | | | | CENTER - | | | | | | LABORATORY | | + + + + + + | % | 74.8 | 45.0 - 82.0 % | [facility] | | | Neutrophils | | | [facility] | | | | | | MEDICAL | | | | | | CENTER - | | | | | | LABORATORY | | + + + + + + | % | 14.4 (L) | 20.0 - 45.0 % | [facility] | | | Lymphocytes | | | [facility] | | | | | | MEDICAL | | | | | | CENTER - | | | | | | LABORATORY | | + + + + + + | % Monocytes | 8.8 | 4.0 - 12.0 % | [facility] | | | | | | [facility] | | | | | | MEDICAL | | | | | | CENTER - | | | | | | LABORATORY | | + + + + + + | % | 1.0 | 0.0 - 5.0 % | [facility] | | | Eosinophils | | | [facility] | | | | | | MEDICAL | | | | | | CENTER - | | | | | | LABORATORY | | + + + + + + | % Basophils | 0.6 | 0.0 - 1.0 % | [facility] [...] + + + + | Absolute | 10.16 (H) | 1.80 - 8.50 | [facility] | | | Neutrophils | | K/uL | [facility] | | | | | | MEDICAL | | | | | | CENTER - | | | | | | LABORATORY | | + + + + + + | Absolute | 1.95 | 0.60 - 3.20 | [facility] | [...] + + + + | Absolute | 0.13 | 0.00 - 0.40 | [facility] | | | Eosinophils | | K/uL | [facility] | | | | | | MEDICAL | | | | | | CENTER - | | | | | | LABORATORY | | + + + + + + | Absolute | 0.08 | 0.00 - 0.10 | [facility] | [...] [address] | [place] | [phone] | | [facility] | | [address] | | | - LABORATORY | | | | + + + + + CT Head wo Contrast (03/03/2020 6:47 AM PDT) + + | [...] | Kobe, Rad Results In - 03/03/2020 9:27 AM PDT EXAM: CT HEAD [...] + | Diagnosis | + + | Fall, initial encounter - Primary | + + | Contusion of forehead, initial encounter | + + | Multiple skin tears Open wound(s) (multiple) of unspecified site(s), without mention | | of complication | + + | Decubitus ulcer of coccygeal region, unspecified ulcer stage | + + documented in this encounter Administered Medications + +--------+ + +------+------+ | Medication Order | MAR | Action | Dose | Rate | Site | | | Action | Date | | | | + +--------+ + +------+------+ | HYDROcodone-acetaminophen | Given | 03/03/20 | 1 tablet | | | | (NORCO) 7.5-325 mg per tablet 1 | | 20 6:30 | | | | | tablet 1 tablet, Oral, ONCE, Fri | | AM PDT | | | | | 03/03/20 at 0625, For 1 dose | | | | | | + +--------+ + +------+------+ +---+---+ | | | +---+---+ documented in this encounter Additional Health Concerns + + + + | Infection | Noted Time | Resolved Time | + + + + | Methicillin-resistant Staphylococcus aureus | 06/08/2019 9:39 AM | | | | PDT | | + + + + documented as of this encounter
--- OUTSIDE RECORDS SUMMARY | ~2020-03-14 | XMS | Encounter Summary ---
Demographics + + + | Address | [address] | | | [place] [address] | + + + | Home Phone | | + + + | Preferred Language | Unknown | + + + | Marital Status | | + + + | Bahai Affiliation | Unknown | + + + | Race | Unknown | + + + | Ethnic Group | Unknown | + + + Author + + + | Author | [facility] | | | and [place] | + + + | Organization | [facility] | | | [...] Team Providers + +------+ + | Care Leasing Specialist Name | Role | Phone | + +------+ + | Kathleen Escobar MD | PCP | | + +------+ + Reason for Visit Auth/Cert +--------+--------+ + + + + | Status | Reason | Specialty | Diagnoses / | Referred By | Referred To | | | | | Procedures | Contact | Contact | +--------+--------+ + + + + | | | | Diagnoses | | | | | | | Weakness | | | | | | | Elevated | | | | | | | troponin I | | | | | | | level Fall, | | | | | | | initial | | | | | | | encounter | | | | | | | Closed | | | | | | | nondisplaced | | | | | | | fracture of | | | | | | | distal | | | | | | | phalanx of | | | | | | | lesser toe | | | | | | | of left | | | | | | | foot, | | | | | | | initial | | | | | | | encounter | | | | | | | | | | +--------+--------+ + + + + Encounter Details +--------+ + + + + | Date | Type | Department | Care Team | Description | +--------+ + + + + | 06/07/ | Anesthesia | [facility] | Hermilo Alcocer | | | 2019 | Event | MED [facility] INTRA OP | MD [address] | | | | | [address] | [address] [place] | | | | | [place], [place] | [place] [address] | | | | | [address] | [phone] | | | | | [phone] | | | +--------+ + + + + Anesthesia Record + + + + + | Procedure Name | Responsible | Anesthesia Start | Anesthesia Stop Time | | | Anesthesiologist | Time | | + + + + + | EGD (N/A Ronnie) | Hermilo Matias | 06/07/19802 | 06/07/19 08 | | | MD Leodan | | | + + + + + +----+---+ + + | Da | T | Event | Comment | | te | i | | | | | m | | | | | e | | | +----+---+ + + | 09 | 0 | | | | /0 | 7 | | | | 2/ | 3 | | | | 20 | 1 | | | | 19 | | | | +----+---+ + + | | 0 | An Checkout | Pre-use anesthesia machine/equipment checkout. | | | 7 | | | | | 4 | | | | | 9 | | | +----+---+ + + | | 0 | An Start | Reassessment prior to anesthesia induction/procedure. | | | 8 | | | | | 0 | | | | | 3 | | | +----+---+ + + | | 0 | An Start | | | | 8 | Data | | | | 0 | | | | | 3 | | | +----+---+ + + | | 0 | Antibiotic | Vancomycin and zosyn started on floor prior to procedure | | | 8 | Given | | | | 1 | | | | | 0 | | | +----+---+ + + | | 0 | Pre-Procedu | | | | 8 | ral Timeout | | | | 1 | Completed | | | | 0 | | | +----+---+ + + | | 0 | Preoxygenat | | | | 8 | ed | | | | 1 | | | | | 1 | | | +----+---+ + + | | 0 | Breathing | | | | 8 | Spontaneous | | | | 1 | ly | | | | 1 | | | +----+---+ + + | | 0 | An | | | | 8 | Induction | | | | 1 | | | | | 3 | | | +----+---+ + + | | 0 | First | | | | 8 | Inc/Proc St | | | | 2 | | | | | 1 | | | +----+---+ + + | | 0 | an stop | | | | 8 | data | | | | 3 | | | | | 4 | | | +----+---+ + + | | 0 | An Stop | Patient handed off to recovery nurse. | | | 4 | | | | | 2 | | | +----+---+ + + +------+ | Meds | +------+ + + + | Name | Total | + + + | propofol | 50 mg | + + + | propofol | 138.72 mg | + + + | LR (Infusion) | 150 mL | + + + + + | No agents on file. | + + + + | No blood administrations on file. | + + +--------+ + + + | Type | Details | Placement | Removal | +--------+ + + + | Periph | Left; Posterior (dorsal), Medial, | 06/04/19 1322 by | 06/12/19 0545 by | | eral | Proximal; Forearm; | | Alie Aj RN | | IV | ntyc-ntf-dscdjx catheter system; | | | | | 20 gauge; 0; appears comfortable; | | | | | no longer indicated; 06/12/19; | | | | | 0545 | | | +--------+ + + + | Urethr | 06/04/19; 0800; indicated for | 06/04/19 0800 by | 06/08/19 1700 by | | al | acute urinary | Mitali Munguia, | Jeremy Rico RN | | Cathet | retention/obstruction; All | RN | | | er | elements; All elements; All | | | | | elements; indwelling double lumen | | | | | catheter; 100% silicone; | | | | | drainage bag to dependent | | | | | drainage; urethral catheter | | | | | removed; short term use; | | | | | 06/08/19; 1700 | | | +--------+ + + + | PICC | 06/04/19; 1549; White Hub; Red | 06/04/19 1549 by Rosio | 06/12/19 1505 by | | Triple | Hub; [place] Hub; Yes; | M FUNMILAYO Macias | Alisson Tamez RN | | Lumen | Chlorhexidine/Isopropyl Alcohol; | | | | | Yes; Yes; All; Patient room; | | | | | Senior Care Provider; Rosio Kim RN; | | | | | Registered nurse; Yes; New | | | | | indication for central line | | | | | (e.g., hemodynamic monitoring, | | | | | fluid/medication administration, | | | | | etc.); basilic vein (medial side | | | | | of arm), left; pressure | | | | | injectable catheter, open-ended | | | | | catheter, lot number (specify) | | | | | (BARD power picc solo triple | | | | | lumen LOT [id number]); 5 Fr, length | | | | | (specify) (55cm picc trimmed to | | | | | 50cm threaded to 8cm zaheer at skin | | | | | ajustment pull back after xray | | | | | 2cm to the 8cm zaheer); | | | | | distraction, intradermal | | | | | injection, tolerated well; | | | | | ultrasound visualization with | | | | | modified seldinger technique at | | | | | bedside; ecg verification, | | | | | placement verified by x-ray; | | | | | 06/12/19; 1505 | | | +--------+ + + + documented in this encounter Social History + + + +--------+ + [...] MAZA | | | | | | [place] | | | | | | [id number] | | | | | | | | +--------+ + + + + | 04/11/ | Appointment | Radiology | Shawn Michael | | 2019 | | | MD Marcelino [address] | | | | | | [address] | | | | | | [place] [address] | | | | | | [phone] | | | | | | | | +--------+ + + + + | 04/13/ | Office | Cardiology | Shawn Michael | | | 2020 | Visit | | MD Marcelino [address] | | | | | | [address] [place] | | | | | | [place] [address] | | | | | | [phone] | | | | | | | | +--------+ + + + + documented as of this encounter Visit Diagnoses Not on filedocumented in this encounter Administered Medications + +---------+ +------+------+------+ | Medication Order | MAR | Action | Dose | Rate | Site | | | Action | Date | | | | + +---------+ +------+------+------+ | lactated ringers (LR) infusion | New Bag | 06/07/20 | | | | | Intravenous, CONTINUOUS PRN, | | 19 8:10 | | | | | Starting 06/07/19 at 0810, | | AM PDT | | | | | Anesthesia Intra-op | | | | | | + +---------+ +------+------+------+ +---+---+ | | | +---+---+ + +-------+ +-------+---+---+ | propofol (DIPRIVAN) injection | Given | 06/07/20 | 50 mg | | | | Intravenous, PRN, Starting Mon | | 19 8:13 | | | | | 06/07/19 at 0813, Anesthesia | | AM PDT | | | | | Intra-op | | | | | | + +-------+ +-------+---+---+ +---+---+ | | | +---+---+ + +---------+ + +-------+---+ | propofol (DIPRIVAN) injection | New Bag | 06/07/20 | 160 | 55.5 | | | Intravenous, CONTINUOUS PRN, | | 19 8:13 | mcg/kg/m | mL/hr | | | Starting 06/07/19 at 0813, | | AM PDT | in | | | | Anesthesia Intra-op | | | | | | + +---------+ + +-------+---+ +---+---+ | | | +---+---+ documented in this encounter"
--- OUTSIDE RECORDS SUMMARY | ~2020-03-14 | XMS | Encounter Summary ---
Demographics + + + | Address | [address] | | | [place] [address] | + + + | Home Phone | | + + + | Preferred Language | Unknown | + + + | Marital Status | | + + + | Moravian Affiliation | Unknown | + + + | Race | Unknown | + + + | Ethnic Group | Unknown | + + + Author + + + | Author | [facility] | | | and [place] | + + + | Organization | [facility] | | | [...] Team Providers + +------+ + | Care Feed Crusher Name | Role | Phone | + [...] | +--------+ + + + + | 07/26/ | Home Care | [facility] [place] | Layla Pablo | CASE COMMUNICATION | | 2018 | Visit | [place] [address] | | | | | | [address] [place] | | | | | | [address] | | | | | | [phone] | | | +--------+ + + + [...] [place] | | | | | | [id number] | | | | | | | | +--------+ + + + + | 04/11/ | Appointment | Radiology | Shawn Michael | | | 2019 | | | MD Marcelino [address] | | | | | | [address] | | | | | | [place] [address] | | | | | | [phone] | | | | | | | | +--------+ + + + + | 04/13/ | Office | Cardiology | Shawn Michael | | | 2020 | Visit | | MD Marcelino [address] | | | | | | [address] | | | | | | [place] [address] | | | | | | [phone] | | | | | | | [...]
--- OUTSIDE RECORDS SUMMARY | ~2020-03-14 | XMS | Encounter Summary ---
Demographics + + + | Address | [address] | | | [place] [address] | + + + | Home Phone | | + + + | Preferred Language | Unknown | + + + | Marital Status | | + + + | Anglican Affiliation | Unknown | + + + | Race | Unknown | + + + | Ethnic Group | Unknown | + + + Author + + + | Author | [facility] | | | and [place] | + + + | Organization | [facility] | | | [...] Team Providers + +------+ + | Care In Flight Refueling Craftsman Name | Role | Phone | + [...] Description | +--------+--------+ + + + | 12/24/ | Refill | [facility] | Nikolay, | Medication Refill | | 2019 | | MEDICINE [address] | MD Candido | | | | | [facility] | [address] [place] [address] | | | | | [place] [address] | [place] [address] | | | | | [phone] | [phone] | | | | | | | [...] | | 2019 | Visit | | REFRIGERATOR REPAIRMAN [address] | | | | | | [place] | | | | | | [address] | | | | | | | | +--------+ + + + + | 04/11/ | Appointment | Radiology | Shawn Michael | | | 2019 | | | MD [address] | | | | | | [address] [place] | | | | | | [place] [address] | | | | | | [phone] | | | | | | | | +--------+ + + + + | 04/13/ | Office | Cardiology | Shawn Michael | | | 2019 | Visit | | MD [address] | | | | | | [address] [place] | | | | | | [place], [place] [address] | | | | | | [phone] | | | | | | | [...]
--- OUTSIDE RECORDS SUMMARY | ~2020-03-14 | XMS | Encounter Summary ---
Demographics + + + | Address | [address] | | | [place] [address] | + + + | Home Phone | | + + + | Preferred Language | Unknown | + + + | Marital Status | | + + + | Protestant Affiliation | Unknown | + + + | Race | Unknown | + + + | Ethnic Group | Unknown | + + + Author + + + | Author | [facility] | | | and [place] | + + + | Organization | [facility] | | | [...] Team Providers + +------+ + | Care Memorandum Statement Clerk Name | Role | Phone | + +------+ + | Candido Link | PCP | | | MD | | | + +------+ + Reason for Visit +--------+ + | Reason | Comments | +--------+ + | DME | | +--------+ + Encounter Details +--------+ + + + + | Date | Type | Department | Care Team | Description | +--------+ + + + + | 08/12/ | Telephone | [facility] | Nikolay, | DME | | 2019 | | MEDICINE [address] [place] [address] | MD Candido | | | | | [facility] | [address] [place] [address] | | | | | [place] [address] | [place] [address] | | | | | [phone] | [phone] | | | | | | | [...] | | 2019 | Visit | | MEDICAL PLANNER [address] | | | | | | [place] | | | | | | [address] | | | | | | | | +--------+ + + + + | 04/11/ | Appointment | Radiology | Shawn Michael | | | 2019 | | | MD [address] | | | | | | [address] [place] | | | | | | [place] [address] | | | | | | [phone] | | | | | | | | +--------+ + + + + | 04/13/ | Office | Cardiology | Shawn Michael | | | 2019 | Visit | | MD [address] | | | | | | [address] [place] | | | | | | [place] [address] | | | | | | [phone] | | | | | | | | +--------+ + + + + documented as of this encounter Visit Diagnoses + + | Diagnosis | + + | 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
--- OUTSIDE RECORDS SUMMARY | ~2020-03-14 | XMS | Encounter Summary ---
Demographics + + + | Address | [address] | | | [place] [address] | + + + | Home Phone | | + + + | Preferred Language | Unknown | + + + | Marital Status | | + + + | Anabaptist Affiliation | Unknown | + + + | Race | Unknown | + + + | Ethnic Group | Unknown | + + + Author + + + | Author | [facility] | | | and [place] | + + + | Organization | [facility] | | | [...] Team Providers + +------+ + | Care Senior Product Development Scientist Name | Role | Phone | + +------+ + | Candido Link | PCP | | | MD | | | + +------+ + Reason for Visit + + + | Reason | Comments | + + + | Request For Medical | | | Records | | + + + Encounter Details +--------+ + + + + | Date | Type | Department | Care Team | Description | +--------+ + + + + | 08/13/ | Telephone | [facility] | Nikolay, | Request For Medical | | 2018 | | MEDICINE [address] [place] [address] | MD Candido | Records | | | | [facility] | [address] [place] [address] | | | | | [place] [address] | [place] [address] | | | | | [phone] | [phone] | | | | | | | [...] | | 2019 | Visit | | MOTORIZED SQUAD SERGEANT [address] | | | | | | [place] | | | | | | [address] | | | | | | | | +--------+ + + + + | 04/11/ | Appointment | Radiology | Shawn Michael | | | 2019 | | | MD [address] | | | | | | [address] [place] | | | | | | [place] [address] | | | | | | [phone] | | | | | | | | +--------+ + + + + | 04/13/ | Office | Cardiology | Shawn Michael | | | 2019 | Visit | | MD [address] | | | | | | [address] [place] | | | | | | [place] [address] | | | | | | [phone] | | | | | | | [...]
--- OUTSIDE RECORDS SUMMARY | ~2020-03-14 | XMS | Encounter Summary ---
Demographics + + + | Address | [address] | | | [place] [address] | + + + | Home Phone | | + + + | Preferred Language | Unknown | + + + | Marital Status | | + + + | Congregation Affiliation | Unknown | + + + | Race | Unknown | + + + | Ethnic Group | Unknown | + + + Author + + + | Author | [facility] | | | and [place] | + + + | Organization | [facility] | | | [...] Team Providers + +------+ + | Care Librarian Helper Name | Role | Phone | + +------+ + | Candido Link | PCP | | | MD | | | + +------+ + Reason for Visit + + + | Reason | Comments | + + + | New Medication | | | Request | | + + + Encounter Details +--------+ + + + + | Date | Type | Department | Care Team | Description | +--------+ + + + + | 08/09/ | Telephone | [facility] | Nikolay, | New Medication | | 2019 | | MEDICINE [address] | MD Candido | Request | | | | [facility] | [address] [facility] | | | | | [place] [address] | [place] [address] | | | | | [phone] | [phone] | | | | | | | [...] | | 2019 | Visit | | REGULAR SENIOR CARE PROVIDER [address] | | | | | | [place] | | | | | | [address] | | | | | | | | +--------+ + + + + | 04/11/ | Appointment | Radiology | Shawn Michael | | | 2019 | | | MD [address] | | | | | | [address] [place] | | | | | | [place] [address] | | | | | | [phone] | | | | | | | | +--------+ + + + + | 04/13/ | Office | Cardiology | Shawn Michael | | | 2019 | Visit | | MD [address] | | | | | | [address] [place] | | | | | | [place], [place] [address] | | | | | | [phone] | | | | | | | | +--------+ + + + + documented as of this encounter Visit Diagnoses + + | Diagnosis | + + | Anxiety - Primary Anxiety state, unspecified | + + documented in this encounter Additional Health Concerns + + + + | Infection | Noted Time | Resolved Time | + + + + | Methicillin-resistant Staphylococcus aureus | 06/08/2019 9:39 AM | | | | PDT | | + + + + documented as of this encounter"
--- OUTSIDE RECORDS SUMMARY | ~2020-03-14 | XMS | Encounter Summary ---
Demographics + + + | Address | [address] | | | [place] [address] | + + + | Home Phone [...] Team Providers + +------+ + | Care Top Collar Maker Name | Role | Phone | + [...] | +--------+ + + + + | 12/01/ | Home Care | [facility] [place] | Rick Taylor | CASE COMMUNICATION | | 2020 | Visit | [place] [address] | | | | | | [place] | | | | | | [address] | | | | | | [phone] | | | +--------+ + + + [...] | 2019 | Visit | | [facility] [address] | | | | | | [place] | | | | | | [address] | | | | | | | | +--------+ + + + + | 04/11/ | Appointment | Radiology | Shawn Michael | | | 2019 | | | MD [address] | | | | | | [address] [place] | | | | | | [place] [address] | | | | | | [phone] | | | | | | | | +--------+ + + + + | 04/13/ | Office | Cardiology | Shawn Michael | | 2019 | Visit | | MD [address] | | | | | | [address] [place] | | | | | | [place] [address] | | | | | | [phone] | | | | | | | [...]
--- OUTSIDE RECORDS SUMMARY | ~2020-03-14 | XMS | Encounter Summary ---
Demographics + + + | Address | [address] | | | [place] [address] | + + + | Home Phone | | + + + | Preferred Language | Unknown | + + + | Marital Status | | + + + | Mormon Affiliation | Unknown | + + + | Race | Unknown | + + + | Ethnic Group | Unknown | + + + Author + + + | Author | [facility] | | | and [place] | + + + | Organization | [facility] | | [...] Team Providers + +------+ + | Care Television Cabinet Finisher Name | Role | Phone | + [...] | | | | | type | [address] | [address] | | | | | Procedures | [place] | | | | | UNDERGROUND MINE MACHINERY MECHANIC OFFICE | [place] [address] | [place] [address] | | | | | VISIT | Phone: | Phone: | | | | | | [phone] | [phone] | | | | | | Fax: | Fax: | | | | | | [phone] | [phone] | + + + + + + [...] | Services | Acute | Chace | Darke | | | Required | | respiratory | MD Pati | [address] | | | | | failure with | [address] | [address] [place] | | | | | hypoxia | [place] | [place] | | | | | (HCC) | [facility], [place] | [address] | | | | | Pressure | [address] | Phone: | | | | | injury of | Phone: | [phone] | | | | | deep tissue | [phone] | Fax: | | | | | of sacral | Fax: | [phone] | | | | | region | [phone] | | | | | | Acute [...] | | | | | | | ([facility]) | | | | | [...] | | | | | | | ([facility]) | | | | | [...] + + | 01/30/ | Hospital | [facility] | Raymon Daniel, | Acute respiratory | | 2019 - | Encounter | [facility] | [address] | failure with hypoxia | | | | [address] [place] | PRASHANT PATEL | ([facility]) (Primary Dx); | | 02/08/ | | [place] [address] | [id number] | Acute systolic | | 2020 | | [phone] | | congestive heart | | | | | Aida Mills MD | failure (HCC); | | | | | [address] | Elevated troponin I | | | | | [place], [place] | level; Pressure | | | | | [id number] | injury of deep | | | [...] might be different fro m the original. [facility] [place] HOSPITAL[place] DISCHARGE SUMMARY Pt. Name/Age/: Ángela [...] x1 not to place or time. 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 troponins stable, no chest pain during admission. 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 Will require upper GI workup per LINE CREWMAN . Recommend reflux precautions and puree diet. [...] in place, she (and son) says not TEST MANAGER so will have RN remove now and ensure she ca n void before going home and he can remove the midline too She says has home oxygen Also with Hx of CAD I resumed her low dose ASA BPs good enough to return to TEST MANAGER Coreg dose 7 days of Septra DISPOSITION AND DISCHARGE INSTRUCTIONS: Follow-up Information Candido Link MD On 02/15/2020. Specialty: Internal Medicine Why: This is your hospital follow up appointment, scheduled for 2:45 , Please check in at 2:30. Contact information: [address] [place], [place] [address] [facility] [address] Patient being discharged to HOME Home Health ordered or restarted (Yes or No) Yes Patient condition at discharge improved PDMP (QUARRY MANAGER) reviewed Addendum (02/09/2020 3:54 PM) Son said no [place] nor Prednisone nor Citalopram so I printed those three and RN to Fax to sameer shaw Greater than 30 minutes were spent on discharge and coordination of post-hospital care. (dot meyshort) (dot meyopioid) When prescribing opiates consider adding to discharge instructions: "Opioid medicines, understanding the risks and side effects" "Opioid medicines, taking" Electronically signed by: Bruce Cochran MD, 02/09/2020 11:[address] [facility] Reference. This is NOT part of [...] this chart may have been created with BackOps voice recognition software. Occasi onal wrong-word or sound-alike substitutions may have occurred due to the inherent owen itations of voice recognition software. Please read the chart carefully and recognize, using context, where these substitutions have occurred documented in this en counter Discharge Instructions Instructions Bruce Cochran MD - [facility] Low salt in diet Probiotics Patient [...] flavors available): 8 ounces per day ? [place] Fresh Yogurt (many flavors available): 6 ounces [...] 0 | // | | | (MYCOSTATIN) [id number] | | | | 20 | | [...] | | 0 | | | | ([facility]) 0.65% nasal | Nare route. two to [...] Krueger MD - 02/08/2020 12:06 PM PDT [place], [place] HOSPITALIST PROGRESS NOTE Patient: Ángela Crowley : 1930: Age: 89 y.o. MedRec: [id number] PCP: Candido Link MD Admission date: 01/31/2020 [...] x1 not to place or time. 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 troponins stable, no chest pain during admission. 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 Will require upper GI workup per LINE CREWMAN . Recommend reflux precautions and puree diet. [...] care. Chace Higuera MD 02/08/2020 12:06 PM [facility] Subjective CC Improved spirits this am but [...] good set up and intermittent supervision. Dysphagia dragline mechanic al altered soft chopped. Thin liquids. [...] 108* PCTSAT -- 21.3 FERRITIN -- 186 [id number] -- 976* FOLATE 8.8 -- Inflammatory markers [...] ABG No results for input(s): PHART, PO2ART, YMZ9PLI, QDR2PNU, BEART, S7SXSTUF in the last 168 h ours. No results for input(s): SPECSOURCE, PHPOCB, PCO2, PO2, HCO3, TCO2, BEART, [id number] in the last 168 hours. Drug of [...] Value Units Date/Time Culture, Wound, Smear, w/Anaerobe [[id number]] Collected: 02/03/201112 Order Status: Sent Lab Status: In process Updated: 02/05/20 1229 Specimen: Tissue from Vertebrae, Sacral Narrative: The following orders were created for panel order Culture, Wound, Smear, w/Anaerobe. Procedure Abnormality Status --------- ------ Culture, Wound, Smear[[id number]] Final result Culture, Anaerobic[[id number]] Normal Preliminary result Please view results for these tests on the individual orders. Culture, Wound, Smear [[id number]] (Susceptibility) Collected: 02/03/201112 Order Status: Completed Lab [...] 1 ug/mL Not Specified Final Culture, Anaerobic [[id number]] (Normal) Collected: 02/03/201112 Order Status: Completed Lab Status: Preliminary result Updated: 02/06/20 1309 Specimen: Tissue from Vertebrae, Sacral Culture Culture in progress... Culture, Urine [[id number]] Collected: 02/02/20 0344 Order Status: Completed Lab [...] this chart may have been created with BackOps voice recognition software. Occasi onal wrong-word or sound-alike substitutions may have occurred due to the inherent owen itations of voice recognition software. Please read the chart carefully and recognize, using context, where these substitutions have occurred Marina Kyle ARNP - 02/08/2020 9:54 AM PDT [facility] PALLIATIVE CARE PROGRESS NOTE Pt. Name/Age/: Ángela Crowley 89 y.o. 1930 Med. Record Number: [id number] Palliative [facility] Home Health: PRABHJOT Leon Referring Provider: Chace Higuera MD [...] to 3 LPM, history of tobacco use ([id number]) Protein calorie malnutrition, severe Congestive heart failure, [...] ready to return home but would need formerly [facility] health and wound care. DISCUSSION AND PLAN Discussion: 02/07/2020 Attended by: the patient's son Yadiel and palliative care PRESCHOOL SUBSTITUTE TEACHER Marina Cutler; phone confere nce. Palliative Care [...] ulcer with infection, anxiety Discussion: BMI 18.11. Home Help Aide is following. Son Yadiel has been her [...] inability to visit her (COVID-19 pandemic restrictions). [employer] has been involved with this patient. Patient [...] depletion Treatment / Plan: Recommend home health, PT/OT/LINE CREWMAN and investment specialist PT has recommended wheelchair and wheeled [...] functional, cognitive status. Noting his statements to clinical case manager Dilcia JUNE indicating she was ambulating with [...] of left foot Coronary artery disease involving [place] coronary artery of [place] heart without angina pectoris Centrilobular emphysema S/p [...] Flex Sig; Surgeon: Edwin Stoddard MD; Location: [facility] PROCEDURE UNIT HYSTERECTOMY NIRMAL AND BSO TONSILLECTOMY AND ADENOIDECTOMY UPPER GASTROINTESTINAL ENDOSCOPY N/A 06/07/2019 Procedure: EGD; Surgeon: Edwin Stoddard MD; Location: [facility] MEDICAL PROCEDURE UNIT UPPER GASTROINTESTINAL ENDOSCOPY N/A 08/20/2019 Procedure: EGD; Surgeon: John Grimes MD; Location: [facility] MEDICAL PROCEDURE UNIT Family History Problem [...] 0.5 mg 0.5 mg Nebulization RT BID Aiad hernandez MD 0.5 mg at 02/08/20906 carvedilol [...] Crossmatch Result Value Ref Range Product Code G3376N51 UNIT # [id number] UNIT ABO A UNIT RH POS CROSSMATCH INTERP Compatible Unit Status Crossmatched Blood Product Expiration Date and Time [id number] Product Blood Type Barcode 6200 Basic Metabolic [...] physician Total time of approximately 44 minutes (0779-4327 = 10 min face to face; 1290-0138) was spe nt with the patient and/or patient's family, and/or on the patient's floor/unit, of which mo re than 50% was spent counseling and/or coordination the patient's care as outlined above. Topics Discussed: See discussion notes under Discussion and Plan section. Electronically signed by: PRABHJOT Perez, 02/08/2020 9:54 AM NICOLE: AFTT - adult failure to thrive PRESCHOOL SUBSTITUTE TEACHER - advanced registered nurse practitioner BiPAP - bilevel positive airway pressure BP- blood pressure CN-cranial nerves CPAP-continuous positive airway pressure dc'd - discharged or discontinued EOMI-extraocular movement intact HR-heart rate HSM-hepatosplenomegaly LE-lower extremity - doctor of medicine p7Vsb-kkfjim saturation PERRLA-pupils equal, round, reactive to light and accommodation RR-respiratory rate S1 S2- 1st and 2nd heart sounds T-temperature JVD-jugular vein distension Chace Gusman MD - 02/07/2020 1:39 PM PDT [facility] [place] HOSPITAL[place] PROGRESS NOTE Patient: Ángela Crowley : 1930: Age: 89 y.o. MedRec: [id number] PCP: Candido Link MD Admission date: 01/31/2020 [...] x1 not to place or time. 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 troponins stable, no chest pain during admission. 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 Will require upper GI workup per LINE CREWMAN . Recommend reflux precautions and puree diet. [...] code. Chace Higuera MD 02/07/2020 1:39 PM [facility] Subjective CC Asking for more blankets and [...] 108* PCTSAT -- 21.3 FERRITIN -- 186 [id number] -- 976* FOLATE 8.8 -- Inflammatory markers [...] ABG No results for input(s): PHART, PO2ART, WJQ6BHT, PQZ2YBM, BEART, O2XWPRYD in the last 168 h ours. No results for input(s): SPECSOURCE, PHPOCB, PCO2, PO2, HCO3, TCO2, BEART, [id number] in the last 168 hours. Drug of [...] Value Units Date/Time Culture, Wound, Smear, w/Anaerobe [[id number]] Collected: 02/03/20 1113 Order Status: Sent Lab Status: In process Updated: 02/05/20 122 Specimen: Tissue from Vertebrae, Sacral Narrative: The following orders were created for panel order Culture, Wound, Smear, w/Anaerobe. Procedure Abnormality Status --------- ------ Culture, Wound, Smear[[id number]] Final result Culture, Anaerobic[[id number]] Normal Preliminary result Please view results for these tests on the individual orders. Culture, Wound, Smear [[id number]] (Susceptibility) Collected: 02/03/20 1113 Order Status: Completed [...] 1 ug/mL Not Specified Final Culture, Anaerobic [[id number]] (Normal) Collected: 02/03/20 1113 Order Status: Completed Lab Status: Preliminary result Updated: 02/06/20 1309 Specimen: Tissue from Ver[place]brae, Sacral Culture Culture in progress... Culture, Urine [[id number]] Collected: 02/02/20 0344 Order Status: Completed Lab Status: Final result Updated: 02/05/20 1228 Specimen: Urine, Unspecified Source Culture >100,000 CFU/ml Roxanna albicans Stool Pathogens, NAAT [[id number]] (Normal) Collected: 02/01/20 0901 Order Status: Completed Lab Status: Final result Updated: 02/01/20 1444 Specimen: Stool Campylobacter, NAAT Not Detected Salmonella, NAAT Not Detected Shigella NAAT Not Detected Vibrio, NAAT Not Detected Yersinia enterocolitica, NAAT Not Detected Shigatoxin 1 Not Detected Shigatoxin 2 Not Detected Clostridioides difficle NAAT reflex to Tox Ag [[id number]] Collected: 02/01/20 0901 Order Status: Completed Lab Status: Final result Updated: 02/01/20 1210 Specimen: Stool Narrative: The following orders were created for panel order Clostridioides difficle NAAT reflex to T ox Ag. Procedure Abnormality Status --------- ------ Clostridioides difficile...[[id number]] Final result Please view results for these tests on the individual orders. Clostridioides difficile NAAT Reflex [[id number]] Collected: 02/01/20 0901 Order Status: Completed Lab Status: Final result Updated: 02/01/20 1210 Specimen: Stool C. difficile, Interp Negative Comment: No Toxigenic C. difficile detected. Consider other causes of Diarrhea. Repeat te sting should not be performed within 7 days. C. difficile, NAAT Negative Culture, Blood [[id number]] Collected: 01/31/20 1721 Order Status: Completed Lab Status: Final result Updated: 02/05/20 1731 Specimen: Blood from Line Culture No growth after 5 days incubation. Influenza A and B RNA, NAAT [[id number]] (Normal) Collected: 01/31/20 1514 Order Status: Completed Lab Status: Final result Updated: 01/31/20 1557 Specimen: Tissue from Nasopharynx Influenza A PCR Negative Influenza B PCR Negative Respiratory pathogen panel, NAAT [[id number]] (Normal) Collected: 01/31/20 1513 Order Status: Completed [...] this chart may have been created with BackOps voice recognition software. Occasi onal wrong-word or sound-alike substitutions may have occurred due to the inherent owen itations of voice recognition software. Please read the chart carefully and recognize, using context, where these substitutions have occurred erry, Chace hobson MD - 02/06/2020 8:05 AM PDTFormatting of this note might be different from the origin al. [place], [place] HOSPITALIST PROGRESS NOTE Patient: Ángela Crowley : 1930: Age: 89 y.o. MedRec: [id number] PCP: Candido Link MD Admission date: 01/31/2020 [...] x[address] or time. 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 troponins stable, no chest pain during admission. 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 Will require upper GI workup per LINE CREWMAN . Recommend reflux precautions and puree diet. [...] code Chace Higuera MD 02/06/2020 8:05 AM [facility] Subjective CC Complaint of feeling cold this [...] ABG No results for input(s): PHART, PO2ART, TYI3YKB, YUW2LLJ, BEART, K2VRYPQD in the last 168 h ours. No results for input(s): SPECSOURCE, PHPOCB, PCO2, PO2, HCO3, TCO2, BEART, BTCD8LKO in the last 168 hours. Drug of [...] Value Units Date/Time Culture, Wound, Smear, w/Anaerobe [[id number]] Collected: 02/03/201112 Order Status: Sent Lab Status: In process Updated: 02/05/201228 Specimen: Tissue from Vertebrae, Sacral Narrative: The following orders were created for panel order Culture, Wound, Smear, w/Anaerobe. Procedure Abnormality Status --------- ------ Culture, Wound, Smear[[id number]] Final result Culture, Anaerobic[[id number]] In process Please view results for these tests on the individual orders. Culture, Wound, Smear [[id number]] (Susceptibility) Collected: 02/03/201112 Order Status: Completed Lab [...] 1 ug/mL Not Specified Final Culture, Anaerobic [[id number]] Collected: 02/03/20 1113 Order Status: Resulted Lab Status: In process Updated: 02/03/20 1118 Specimen: Tissue from Vertebrae, Sacral Culture, Urine [[id number]] Collected: 02/02/20 0344 Order Status: Completed Lab Status: Final result Updated: 02/05/20 1228 Specimen: Urine, Unspecified Source Culture >100,000 CFU/ml Roxanna albicans Stool Pathogens, NAAT [[id number]] (Normal) Collected: 02/01/20 0901 Order Status: Completed Lab Status: Final result Updated: 02/01/20 1444 Specimen: Stool Campylobacter, NAAT Not Detected Salmonella, NAAT Not Detected Shigella NAAT Not Detected Vibrio, NAAT Not Detected Yersinia enterocolitica, NAAT Not Detected Shigatoxin 1 Not Detected Shigatoxin 2 Not Detected Clostridioides difficle NAAT reflex to Tox Ag [[id number]] Collected: 02/01/20 0901 Order Status: Completed Lab Status: Final result Updated: 02/01/20 1210 Specimen: Stool Narrative: The following orders were created for panel order Clostridioides difficle NAAT reflex to T ox Ag. Procedure Abnormality Status --------- ------ Clostridioides difficile...[[id number]] Final result Please view results for these tests on the individual orders. Clostridioides difficile NAAT Reflex [[id number]] Collected: 02/01/20 0901 Order Status: Completed Lab Status: Final result Updated: 02/01/20 1210 Specimen: Stool C. difficile, Interp Negative Comment: No Toxigenic C. difficile detected. Consider other causes of Diarrhea. Repeat te sting should not be performed within 7 days. C. difficile, NAAT Negative Culture, Blood [[id number]] Collected: 01/31/20 1721 Order Status: Completed Lab Status: Final result Updated: 02/05/20 1731 Specimen: Blood from Line Culture No growth after 5 days incubation. Influenza A and B RNA, NAAT [[id number]] (Normal) Collected: 01/31/20 1514 Order Status: Completed Lab Status: Final result Updated: 01/31/20 1557 Specimen: Tissue from Nasopharynx Influenza A PCR Negative Influenza B PCR Negative Respiratory pathogen panel, NAAT [[id number]] (Normal) Collected: 01/31/20 1513 Order Status: Completed Lab Status: Final result Updated: 01/31/20 1804 Specimen: Body Fluid from Nasopharynx Parainfluenza 1 Not Detected Adenovirus Not Detected Human Metapneumovirus Not Detected Rhinovirus/Enterovirus Not Detected Parainfluenza 3 Not Detected Coronavirus (COVID-19) NAAT [[id number]] (Normal) Collected: 01/31/20 0947 Order Status: Completed Lab Status: Final result Updated: 01/31/20 194 Specimen: Tissue from Nasopharynx SARS coronavirus 2 NAAT Not Detected Comment: See Scanned Report [facility] STAT instructions for COVID-19 tracking [[id number]] Collected: 01/31/2047 Order Status: Completed Lab Status: Final result Updated: 01/31/201940 Specimen: Tissue from Nasopharynx [facility] COVID STAT instruction done Culture, Blood [[id number]] Collected: 01/31/20 0907 Order Status: Completed Lab [...] this chart may have been created with BackOps voice recognition software. Occasi onal wrong-word or [...] stenosis, COPD (chronic obstructive pu lmonary disease) ([facility]), Coronary artery disease, Kidney stone, [...] Value Units Date/Time Culture, Wound, Smear, w/Anaerobe [[id number]] Collected: 02/03/201112 Order Status: Sent Lab Status: In process Updated: 02/03/201117 Specimen: Tissue from Vertebrae, Sacral Narrative: The following orders were created for panel order Culture, Wound, Smear, w/Anaerobe. Procedure Abnormality Status --------- ------ Culture, Wound, Smear[[id number]] Preliminary result Culture, Anaerobic[[id number]] In process Please view results for these tests on the individual orders. Culture, Wound, Smear [[id number]] Collected: 02/03/201112 Order Status: Completed Lab Status: Preliminary result Updated: 02/04/20 0836 Specimen: Tissue from Vertebrae, Sacral Culture 4+ Staphylococcus aureus Comment: Presumptive identification Identification and susceptibility to follow. Gram Stain Result No white blood cells (PMNs) seen 1+ Epithelial cells 2+ Gram positive cocci Culture, Anaerobic [[id number]] Collected: 02/03/201112 Order Status: Resulted Lab Status: In process Updated: 04/30/20 1118 Specimen: Tissue from Vertebrae, Sacral Culture, Urine [[id number]] Collected: 02/02/20 0344 Order Status: Completed Lab Status: Preliminary result Updated: 02/04/20 1239 Specimen: Urine, Unspecified Source Culture >100,000 CFU/ml Yeast species Comment: Identification to follow. Stool Pathogens, NAAT [[id number]] (Normal) Collected: 02/01/20 0901 Order Status: Completed Lab Status: Final result Updated: 02/01/20 1444 Specimen: Stool Campylobacter, NAAT Not Detected Salmonella, NAAT Not Detected Shigella NAAT Not Detected Vibrio, NAAT Not Detected Yersinia enterocolitica, NAAT Not Detected Shigatoxin 1 Not Detected Shigatoxin 2 Not Detected Clostridioides difficle NAAT reflex to Tox Ag [[id number]] Collected: 02/01/20 0901 Order Status: Completed Lab Status: Final result Updated: 02/01/20 1210 Specimen: Stool Narrative: The following orders were created for panel order Clostridioides difficle NAAT reflex to T ox Ag. Procedure Abnormality Status --------- ------ Clostridioides difficile...[[id number]] Final result Please view results for these tests on the individual orders. Clostridioides difficile NAAT Reflex [[id number]] Collected: 02/01/20 0901 Order Status: Completed Lab Status: Final result Updated: 02/01/20 1210 Specimen: Stool C. difficile, Interp Negative Comment: No Toxigenic C. difficile detected. Consider other causes of Diarrhea. Repeat te sting should not be performed within 7 days. C. difficile, NAAT Negative Culture, Blood [[id number]] Collected: 01/31/20 1721 Order Status: Completed Lab Status: Preliminary result Updated: 02/03/20 1731 Specimen: Blood from Line Culture No growth: Monitored continually by instrument for 5 days Influenza A and B RNA, NAAT [[id number]] (Normal) Collected: 01/31/20 1514 Order Status: Completed Lab Status: Final result Updated: 01/31/20 1557 Specimen: Tissue from Nasopharynx Influenza A PCR Negative Influenza B PCR Negative Respiratory pathogen panel, NAAT [[id number]] (Normal) Collected: 01/31/20 1513 Order Status: Completed Lab Status: Final result Updated: 01/31/20 180 Specimen: Body Fluid from Nasopharynx Parainfluenza 1 Not Detected Adenovirus Not Detected Human Metapneumovirus Not Detected Rhinovirus/Enterovirus Not Detected Parainfluenza 3 Not Detected Coronavirus (COVID-19) NAAT [[id number]] (Normal) Collected: 01/31/20946 Order Status: Completed Lab Status: Final result Updated: 01/31/201941 Specimen: Tissue from Nasopharynx SARS coronavirus 2 NAAT Not Detected Comment: See Scanned Report [facility] STAT instructions for COVID-19 tracking [[id number]] Collected: 01/31/20946 Order Status: Completed Lab Status: Final result Updated: 01/31/201940 Specimen: Tissue from Nasopharynx [facility] COVID STAT instruction done Culture, Blood [[id number]] Collected: 01/31/20906 Order Status: Completed Lab Status: [...] this note might be different from the [facility] [place] HOSPITALIST PROGRESS NOTE Patient: Ángela Crowley : 1930: Age: 89 y.o. MedRec: [id number] PCP: Candido Link MD Admission date: 01/31/2020 [...] x1 not to place or time. 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 troponins stable, no chest pain during admission. 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 Will require upper GI workup per LINE CREWMAN . Recommend reflux precautions and puree diet. [...] made. Chace Higuera MD 02/05/2020 8:48 AM [facility] Subjective CC Continued lower back pain and [...] 250 mL IVPB 1 g Intravenous Q24H Ian durham, PharmD 166.7 mL/hr at 02/04/20 1152 [...] for input(s): IRON, TIBC, PCTSAT, FERRITIN, TSH, [id number], FOLATE in the last 168 hours. Inflammatory [...] ABG No results for input(s): PHART, PO2ART, YHO0OWN, XBQ2SEV, BEART, [id number] in the last 168 h ours. No results for input(s): SPECSOURCE, PHPOCB, PCO2, PO2, HCO3, TCO2, BEART, CIIN0MIX in the last 168 hours. Drug of [...] Value Units Date/Time Culture, Wound, Smear, w/Anaerobe [[id number]] Collected: 02/03/201112 Order Status: Sent Lab Status: In process Updated: 02/03/201117 Specimen: Tissue from [place], Sacral Narrative: The following orders were created for panel order Culture, Wound, Smear, w/Anaerobe. Procedure Abnormality Status --------- ------ Culture, Wound, Smear[[id number]] Preliminary result Culture, Anaerobic[[id number]] In process Please view results for these tests on the individual orders. Culture, Wound, Smear [[id number]] Collected: 02/03/201112 Order Status: Completed Lab Status: Preliminary result Updated: 02/04/20 0836 Specimen: Tissue from [place], Sacral Culture 4+ Staphylococcus aureus Comment: Presumptive identification Identification and susceptibility to follow. Gram Stain Result No white blood cells (PMNs) seen 1+ Epithelial cells 2+ Gram positive cocci Culture, Anaerobic [[id number]] Collected: 02/03/201112 Order Status: Resulted Lab Status: In process Updated: 02/03/201117 Specimen: Tissue from [place], Sacral Culture, Urine [[id number]] Collected: 02/02/20 0344 Order Status: Completed Lab Status: Preliminary result Updated: 02/04/20 1239 Specimen: Urine, Unspecified Source Culture >100,000 CFU/ml Yeast species Comment: Identification to follow. Stool Pathogens, NAAT [[id number]] (Normal) Collected: 02/01/20 0901 Order Status: Completed Lab Status: Final result Updated: 02/01/20 1444 Specimen: Stool Campylobacter, NAAT Not Detected Salmonella, NAAT Not Detected Shigella NAAT Not Detected Vibrio, NAAT Not Detected Yersinia enterocolitica, NAAT Not Detected Shigatoxin 1 Not Detected Shigatoxin 2 Not Detected Clostridioides difficle NAAT reflex to Tox Ag [[id number]] Collected: 02/01/20 0901 Order Status: Completed Lab Status: Final result Updated: 02/01/20 1210 Specimen: Stool Narrative: The following orders were created for panel order Clostridioides difficle NAAT reflex to T ox Ag. Procedure Abnormality Status --------- ------ Clostridioides difficile...[[id number]] Final result Please view results for these tests on the individual orders. Clostridioides difficile NAAT Reflex [[id number]] Collected: 02/01/20 0901 Order Status: Completed Lab Status: Final result Updated: 02/01/20 1210 Specimen: Stool C. difficile, Interp Negative Comment: No Toxigenic C. difficile detected. Consider other causes of Diarrhea. Repeat te sting should not be performed within 7 days. C. difficile, NAAT Negative Culture, Blood [[id number]] Collected: 01/31/20 1721 Order Status: Completed Lab Status: Preliminary result Updated: 02/03/20 1731 Specimen: Blood from Line Culture No growth: Monitored continually by instrument for 5 days Influenza A and B RNA, NAAT [[id number]] (Normal) Collected: 01/31/20 1514 Order Status: Completed Lab Status: Final result Updated: 01/31/20 1557 Specimen: Tissue from Nasopharynx Influenza A PCR Negative Influenza B PCR Negative Respiratory pathogen panel, NAAT [[id number]] (Normal) Collected: 01/31/20 1513 Order Status: Completed Lab Status: Final result Updated: 01/31/20 1804 Specimen: Body Fluid from Nasopharynx Parainfluenza 1 Not Detected Adenovirus Not Detected Human Metapneumovirus Not Detected Rhinovirus/Enterovirus Not Detected Parainfluenza 3 Not Detected Coronavirus (COVID-19) NAAT [[id number]] (Normal) Collected: 01/31/20 0947 Order Status: Completed Lab Status: Final result Updated: 01/31/20 194 Specimen: Tissue from Nasopharynx SARS coronavirus 2 NAAT Not Detected Comment: See Scanned Report [facility] STAT instructions for COVID-19 tracking [[id number]] Collected: 01/31/20 0947 Order Status: Completed Lab Status: Final result Updated: 01/31/20 194 Specimen: Tissue from Nasopharynx [facility] COVID STAT instruction done Culture, Blood [[id number]] Collected: 01/31/20 0907 Order Status: Completed Lab [...] moderate distention of the esoph sreekanth, likely practice representative of achalasia. Dictated and Signed by: [...] this chart may have been created with [employer] voice recognition software. Occasi onal wrong-word or sound-alike substitutions may have occurred due to the inherent owen itations of voice recognition software. Please read the chart carefully and recognize, using context, where these substitutions have occurred erry, Chace hobson MD - 02/04/2020 11:03 AM PDTFormatting of this note might be different from the origin ms. [place], [place] HOSPITALIST PROGRESS NOTE Patient: Ángela Crowley : 1930: Age: 89 y.o. MedRec: [id number] PCP: Candido Link MD Admission date: 01/31/2020 Hospital day # : 4 Physician author: Chace Higuera MD Today: 02/04/2020 Assessment and Hospital Course [...] x1 not to place or time. 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 troponins stable, no chest pain during admission. 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 Will require upper GI workup per LINE [employer] . Recommend reflux precautions and puree diet. [...] days Chace Higuera MD 02/04/2020 11:03 AM [facility] Subjective CC Pain located in lower back. [...] for input(s): IRON, TIBC, PCTSAT, FERRITIN, TSH, [id number], FOLATE in the last 168 hours. Inflammatory [...] ABG No results for input(s): PHART, PO2ART, SJQ5JAL, ZXY6KJV, BEART, [id number] in the last 168 h ours. No results for input(s): SPECSOURCE, PHPOCB, PCO2, PO2, HCO3, TCO2, BEART, [id number] in the last 168 hours. Drug of [...] Value Units Date/Time Culture, Wound, Smear, w/Anaerobe [[id number]] Collected: 02/03/201112 Order Status: Sent Lab Status: In process Updated: 02/03/201117 Specimen: Tissue from [place], Sacral Narrative: The following orders were created for panel order Culture, Wound, Smear, w/Anaerobe. Procedure Abnormality Status --------- ------ Culture, Wound, Smear[[id number]] Preliminary result Culture, Anaerobic[[id number]] In process Please view results for these tests on the individual orders. Culture, Wound, Smear [[id number]] Collected: 02/03/201112 Order Status: Completed Lab Status: Preliminary result Updated: 02/04/20 0836 Specimen: Tissue from [place], Sacral Culture 4+ Staphylococcus aureus Comment: Presumptive identification Identification and susceptibility to follow. Gram Stain Result No white blood cells (PMNs) seen 1+ Epithelial cells 2+ Gram positive cocci Culture, Anaerobic [[id number]] Collected: 02/03/20 1113 Order Status: Resulted Lab Status: In process Updated: 02/03/20 1118 Specimen: Tissue from [place], Sacral Culture, Urine [[id number]] Collected: 02/02/20 0344 Order Status: Completed Lab Status: Preliminary result Updated: 02/03/20 0835 Specimen: Urine, Unspecified Source Culture >100,000 CFU/ml Yeast species Comment: Isolating for additional information. Stool Pathogens, NAAT [[id number]] (Normal) Collected: 02/01/20 0901 Order Status: Completed Lab Status: Final result Updated: 02/01/20 1444 Specimen: Stool Campylobacter, NAAT Not Detected Salmonella, NAAT Not Detected Shigella NAAT Not Detected Vibrio, NAAT Not Detected Yersinia enterocolitica, NAAT Not Detected Shigatoxin 1 Not Detected Shigatoxin 2 Not Detected Clostridioides difficle NAAT reflex to Tox Ag [[id number]] Collected: 02/01/20 09 Order Status: Completed Lab Status: Final result Updated: 02/01/20 1210 Specimen: Stool Narrative: The following orders were created for panel order Clostridioides difficle NAAT reflex to T ox Ag. Procedure Abnormality Status --------- ------ Clostridioides difficile...[[id number]] Final result Please view results for these tests on the individual orders. Clostridioides difficile NAAT Reflex [[id number]] Collected: 02/01/20 0901 Order Status: Completed Lab Status: Final result Updated: 02/01/20 1210 Specimen: Stool C. difficile, Interp Negative Comment: No Toxigenic C. difficile detected. Consider other causes of Diarrhea. Repeat te sting should not be performed within 7 days. C. difficile, NAAT Negative Culture, Blood [[id number]] Collected: 01/31/20 1721 Order Status: Completed Lab Status: Preliminary result Updated: 02/03/20 173 Specimen: Blood from Line Culture No growth: Monitored continually by instrument for 5 days Influenza A and B RNA, NAAT [[id number]] (Normal) Collected: 01/31/20 1514 Order Status: Completed Lab Status: Final result Updated: 01/31/20 1557 Specimen: Tissue from Nasopharynx Influenza A PCR Negative Influenza B PCR Negative Respiratory pathogen panel, NAAT [[id number]] (Normal) Collected: 01/31/20 1513 Order Status: Completed Lab Status: Final result Updated: 01/31/20 1804 Specimen: Body Fluid from Nasopharynx Parainfluenza 1 Not Detected Adenovirus Not Detected Human Metapneumovirus Not Detected Rhinovirus/Enterovirus Not Detected Parainfluenza 3 Not Detected Coronavirus (COVID-19) NAAT [[id number]] (Normal) Collected: 01/31/20946 Order Status: Completed Lab Status: Final result Updated: 01/31/201941 Specimen: Tissue from Nasopharynx SARS coronavirus 2 NAAT Not Detected Comment: See Scanned Report [facility] STAT instructions for COVID-19 tracking [[id number]] Collected: 01/31/20946 Order Status: Completed Lab Status: Final result Updated: 01/31/201940 Specimen: Tissue from Nasopharynx [facility] COVID STAT instruction done Culture, Blood [[id number]] Collected: 01/31/20906 Order Status: Completed Lab Status: [...] moderate distention of the esoph sreekanth, likely practice representative of achalasia. Dictated and Signed by: [...] this chart may have been created with [employer] voice recognition software. Occasi onal wrong-word or [...] stenosis, COPD (chronic obstructive pu lmonary disease) ([facility]), Coronary artery disease, Kidney stone, [...] Value Units Date/Time Culture, Wound, Smear, w/Anaerobe [[id number]] Collected: 02/03/20 1113 Order Status: Sent Lab Status: In process Updated: 02/03/201117 Specimen: Tissue from [place], Sacral Narrative: The following orders were created for panel order Culture, Wound, Smear, w/Anaerobe. Procedure Abnormality Status --------- ------ Culture, Wound, Smear[[id number]] Preliminary result Culture, Anaerobic[[id number]] In process Please view results for these tests on the individual orders. Culture, Wound, Smear [[id number]] Collected: 02/03/20 1113 Order Status: Completed Lab Status: Preliminary result Updated: 02/04/20 0836 Specimen: Tissue from [place], Sacral Culture 4+ Staphylococcus aureus Comment: Presumptive identification Identification and susceptibility to follow. Gram Stain Result No white blood cells (PMNs) seen 1+ Epithelial cells 2+ Gram positive cocci Culture, Anaerobic [[id number]] Collected: 02/03/20 1113 Order Status: Resulted Lab Status: In process Updated: 02/03/20 111 Specimen: Tissue from [place], Sacral Culture, Urine [[id number]] Collected: 02/02/20 0344 Order Status: Completed Lab Status: Preliminary result Updated: 02/03/20 0835 Specimen: Urine, Unspecified Source Culture >100,000 CFU/ml Yeast species Comment: Isolating for additional information. Stool Pathogens, NAAT [[id number]] (Normal) Collected: 02/01/20 09 Order Status: Completed Lab Status: Final result Updated: 02/01/20 1444 Specimen: Stool Campylobacter, NAAT Not Detected Salmonella, NAAT Not Detected Shigella NAAT Not Detected Vibrio, NAAT Not Detected Yersinia enterocolitica, NAAT Not Detected Shigatoxin 1 Not Detected Shigatoxin 2 Not Detected Clostridioides difficle NAAT reflex to Tox Ag [[id number]] Collected: 02/01/20 09 Order Status: Completed Lab Status: Final result Updated: 02/01/20 1210 Specimen: Stool Narrative: The following orders were created for panel order Clostridioides difficle NAAT reflex to T ox Ag. Procedure Abnormality Status --------- ------ Clostridioides difficile...[[id number]] Final result Please view results for these tests on the individual orders. Clostridioides difficile NAAT Reflex [[id number]] Collected: 02/01/20 09 Order Status: Completed Lab Status: Final result Updated: 02/01/20 1210 Specimen: Stool C. difficile, Interp Negative Comment: No Toxigenic C. difficile detected. Consider other causes of Diarrhea. Repeat te sting should not be performed within 7 days. C. difficile, NAAT Negative Culture, Blood [[id number]] Collected: 01/31/20 1721 Order Status: Completed Lab Status: Preliminary result Updated: 02/03/20 173 Specimen: Blood from Line Culture No growth: Monitored continually by instrument for 5 days Influenza A and B RNA, NAAT [[id number]] (Normal) Collected: 01/31/20 1514 Order Status: Completed Lab Status: Final result Updated: 01/31/20 1557 Specimen: Tissue from Nasopharynx Influenza A PCR Negative Influenza B PCR Negative Respiratory pathogen panel, NAAT [[id number]] (Normal) Collected: 01/31/20 1513 Order Status: Completed Lab Status: Final result Updated: 01/31/20 180 Specimen: Body Fluid from Nasopharynx Parainfluenza 1 Not Detected Adenovirus Not Detected Human Metapneumovirus Not Detected Rhinovirus/Enterovirus Not Detected Parainfluenza 3 Not Detected Coronavirus (COVID-19) NAAT [[id number]] (Normal) Collected: 01/31/20946 Order Status: Completed Lab Status: Final result Updated: 01/31/201941 Specimen: Tissue from Nasopharynx SARS coronavirus 2 NAAT Not Detected Comment: See Scanned Report [facility] STAT instructions for COVID-19 tracking [[id number]] Collected: 01/31/20946 Order Status: Completed Lab Status: Final result Updated: 01/31/201940 Specimen: Tissue from Nasopharynx [facility] COVID STAT instruction done Culture, Blood [[id number]] Collected: 01/31/20 09 Order Status: Completed Lab [...] medications discrepancies or medication-related issues: Dosage/Form/Frequency change: TEST MANAGER Medication: Prior to Admission Sig: Correct Dosage/Form: [...] Prior to Admission Sig: Patient taking differently TEST MANAGER as: Docusate sodium 250 mg capsule Take [...] "skin issues" Last fill 10/18/19 Best possible TEST MANAGER medication list after pharmacy review: PT REPORTED [...] by mouth Daily. Taking 30 tablet Candido Lnik MD atorvaSTATin (LIPITOR) 20 mg tablet TAKE [...] daily (with breakfast & di nner). Taking [facility] cetirizine (ZYRTEC) 10 mg [...] by mouth 2 times millie ly. Taking [facility] nitroglycerin (NITROSTAT) 0.4 mg [...] mouth Daily as needed for Constipation. Taking [facility] polyvinyl alcohol (LIQUITEARS) 1.4% [...] performed and electronically signed by Gayatri Aldana, Guard Rail Installer 02/03/2020 2:55 PM Reviewed by Autumn Sutherland, PharmD 02/03/2020 3:25 PM Ina Calles, PharmD - 02/03/2020 10:43 AM PDTFormatting of this note might be different from the shawn lCedric VANCOMYCIN PER PHARMACY PROTOCOL: AMS/Drug Name - Vancomycin Patient: nÁgela Crowley [id number] Admit: 01/31/2020 8:15 AM RELEVANT [...] stenosis, COPD (chronic obstructive pu lmonary disease) ([facility]), Coronary artery disease, Kidney stone, [...] Component Value Units Date/Time Culture, Wound, Smear [[id number]] Order Status: Sent Lab Status: No result Specimen: Tissue from [place], Sacral Culture, Anaerobic [[id number]] Order Status: Sent Lab Status: No result Specimen: Tissue from [place], Sacral Culture, Wound, Smear, w/Anaerobe [[id number]] Order Status: Sent Lab Status: No result Specimen: Tissue from [place], Sacral Narrative: The following orders were created for panel order Culture, Wound, Smear, w/Anaerobe. Procedure Abnormality Status --------- ------ Culture, Wound, Smear[[id number]] Culture, Anaerobic[[id number]] Please view results for these tests on the individual orders. Culture, Urine [[id number]] Collected: 02/02/20 0344 Order Status: Completed Lab Status: Preliminary result Updated: 02/03/20 0835 Specimen: Urine, Unspecified Source Culture >100,000 CFU/ml Yeast species Comment: Isolating for additional information. Stool Pathogens, NAAT [[id number]] (Normal) Collected: 02/01/20 09 Order Status: Completed Lab Status: Final result Updated: 02/01/20 1444 Specimen: Stool Campylobacter, NAAT Not Detected Salmonella, NAAT Not Detected Shigella NAAT Not Detected Vibrio, NAAT Not Detected Yersinia enterocolitica, NAAT Not Detected Shigatoxin 1 Not Detected Shigatoxin 2 Not Detected Clostridioides difficle NAAT reflex to Tox Ag [[id number]] Collected: 02/01/20 09 Order Status: Completed Lab Status: Final result Updated: 02/01/20 1210 Specimen: Stool Narrative: The following orders were created for panel order Clostridioides difficle NAAT reflex to T ox Ag. Procedure Abnormality Status --------- ------ Clostridioides difficile...[[id number]] Final result Please view results for these tests on the individual orders. Clostridioides difficile NAAT Reflex [[id number]] Collected: 02/01/20 0901 Order Status: Completed Lab Status: Final result Updated: 02/01/20 1210 Specimen: Stool C. difficile, Interp Negative Comment: No Toxigenic C. difficile detected. Consider other causes of Diarrhea. Repeat te sting should not be performed within 7 days. C. difficile, NAAT Negative Culture, Blood [[id number]] Collected: 01/31/20 1721 Order Status: Completed Lab Status: Preliminary result Updated: 02/01/20 0531 Specimen: Blood from Line Culture No growth: Monitored continually by instrument for 5 days Influenza A and B RNA, NAAT [[id number]] (Normal) Collected: 01/31/20 1514 Order Status: Completed Lab Status: Final result Updated: 01/31/20 1557 Specimen: Tissue from Nasopharynx Influenza A PCR Negative Influenza B PCR Negative Respiratory pathogen panel, NAAT [[id number]] (Normal) Collected: 01/31/20 1513 Order Status: Completed Lab Status: Final result Updated: 01/31/20 1804 Specimen: Body Fluid from Nasopharynx Parainfluenza 1 Not Detected Adenovirus Not Detected Human Metapneumovirus Not Detected Rhinovirus/Enterovirus Not Detected Parainfluenza 3 Not Detected Coronavirus (COVID-19) NAAT [[id number]] (Normal) Collected: 01/31/20 0947 Order Status: Completed Lab Status: Final result Updated: 01/31/20 194 Specimen: Tissue from Nasopharynx SARS coronavirus 2 NAAT Not Detected Comment: See Scanned Report [facility] STAT instructions for COVID-19 tracking [[id number]] Collected: 01/31/20 0947 Order Status: Completed Lab Status: Final result Updated: 01/31/20 194 Specimen: Tissue from Nasopharynx [facility] COVID STAT instruction done Culture, Blood [[id number]] Collected: 01/31/20 0907 Order Status: Completed Lab [...] MD - 02/03/2020 10:22 AM PDT . [facility] HOSPITALIST PROGRESS NOTE Patient: Ángela Crowley : 1930: Age: 89 y.o. MedRec: [id number] PCP: Candido Link MD Admission date: 01/31/2020 [...] x1 not to place or time. 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 troponins stable, no chest pain during admission. 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 Will require upper GI workup per LINE CREWMAN . Recommend reflux precautions and puree diet. [...] days Chace Higuera MD 02/03/2020 10:22 AM [facility] Subjective CC No pain in abdomen. Pain [...] for input(s): IRON, TIBC, PCTSAT, FERRITIN, TSH, [id number], FOLATE in the last 168 hours. Inflammatory [...] ABG No results for input(s): PHART, PO2ART, TKG3WKQ, HHT0KUH, BEART, C6QVIPAV in the last 168 h ours. No results for input(s): SPECSOURCE, PHPOCB, PCO2, PO2, HCO3, TCO2, BEART, [id number] in the last 168 hours. Drug of [...] Component Value Units Date/Time Culture, Wound, Smear [[id number]] Order Status: Sent Lab Status: No result Specimen: Tissue from [place], Sacral Culture, Anaerobic [[id number]] Order Status: Sent Lab Status: No result Specimen: Tissue from [place], Sacral Culture, Wound, Smear, w/Anaerobe [[id number]] Order Status: Sent Lab Status: No result Specimen: Tissue from [place], Sacral Narrative: The following orders were created for panel order Culture, Wound, Smear, w/Anaerobe. Procedure Abnormality Status --------- ------ Culture, Wound, Smear[[id number]] Culture, Anaerobic[[id number]] Please view results for these tests on the individual orders. Culture, Urine [[id number]] Collected: 02/02/20 0344 Order Status: Completed Lab Status: Preliminary result Updated: 02/03/20 0835 Specimen: Urine, Unspecified Source Culture >100,000 CFU/ml Yeast species Comment: Isolating for additional information. Stool Pathogens, NAAT [[id number]] (Normal) Collected: 02/01/20 0901 Order Status: Completed Lab Status: Final result Updated: 02/01/20 1444 Specimen: Stool Campylobacter, NAAT Not Detected Salmonella, NAAT Not Detected Shigella NAAT Not Detected Vibrio, NAAT Not Detected Yersinia enterocolitica, NAAT Not Detected Shigatoxin 1 Not Detected Shigatoxin 2 Not Detected Clostridioides difficle NAAT reflex to Tox Ag [[id number]] Collected: 02/01/20 0901 Order Status: Completed Lab Status: Final result Updated: 02/01/20 1210 Specimen: Stool Narrative: The following orders were created for panel order Clostridioides difficle NAAT reflex to T ox Ag. Procedure Abnormality Status --------- ------ Clostridioides difficile...[[id number]] Final result Please view results for these tests on the individual orders. Clostridioides difficile NAAT Reflex [[id number]] Collected: 02/01/20 0901 Order Status: Completed Lab Status: Final result Updated: 02/01/20 1210 Specimen: Stool C. difficile, Interp Negative Comment: No Toxigenic C. difficile detected. Consider other causes of Diarrhea. Repeat te sting should not be performed within 7 days. C. difficile, NAAT Negative Culture, Blood [[id number]] Collected: 01/31/20 1721 Order Status: Completed Lab Status: Preliminary result Updated: 02/01/20 0531 Specimen: Blood from Line Culture No growth: Monitored continually by instrument for 5 days Influenza A and B RNA, NAAT [[id number]] (Normal) Collected: 01/31/20 1514 Order Status: Completed Lab Status: Final result Updated: 01/31/20 1557 Specimen: Tissue from Nasopharynx Influenza A PCR Negative Influenza B PCR Negative Respiratory pathogen panel, NAAT [[id number]] (Normal) Collected: 01/31/20 1513 Order Status: Completed Lab Status: Final result Updated: 01/31/20 1804 Specimen: Body Fluid from Nasopharynx Parainfluenza 1 Not Detected Adenovirus Not Detected Human Metapneumovirus Not Detected Rhinovirus/Enterovirus Not Detected Parainfluenza 3 Not Detected Coronavirus (COVID-19) NAAT [[id number]] (Normal) Collected: 01/31/20 0947 Order Status: Completed Lab Status: Final result Updated: 01/31/20 1942 Specimen: Tissue from Nasopharynx SARS coronavirus 2 NAAT Not Detected Comment: See Scanned Report [facility] STAT instructions for COVID-19 tracking [[id number]] Collected: 04/27/20 0947 Order Status: Completed Lab Status: Final result Updated: 01/31/201940 Specimen: Tissue from Nasopharynx [facility] STAT instruction done Culture, Blood [[id number]] Collected: 01/31/20906 Order Status: Completed Lab Status: [...] this chart may have been created with [employer] voice recognition software. Occasi onal wrong-word or [...] might be different from the origin al. [facility] [place] HOSPITALIST PROGRESS NOTE Patient: Ángela Crowley : 1930: Age: 89 y.o. MedRec: [id number] PCP: Candido Link MD Admission date: 01/31/2020 [...] x1 not to place or time. 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 troponins stable, no chest pain during admission. 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 Will require upper GI workup per LINE CREW[employer] . Recommend reflux precautions and puree diet. [...] days Chace Higuera MD 02/02/2020 11:21 AM [facility] Subjective CC No pain in the abdomen [...] for input(s): IRON, TIBC, PCTSAT, FERRITIN, TSH, [id number], FOLATE in the last 168 hours. Inflammatory [...] ABG No results for input(s): PHART, PO2ART, DMR6MQS, YJC5ESB, BEART, M7RPMMKD in the last 168 h ours. No results for input(s): SPECSOURCE, PHPOCB, PCO2, PO2, HCO3, TCO2, BEART, DFRS4BDV in the last 168 hours. Drug of [...] Procedure Component Value Units Date/Time Culture, Urine [[id number]] Collected: 02/02/20 0344 Order Status: Resulted Lab Status: In process Updated: 02/02/20 0402 Specimen: Urine, Unspecified Source Stool Pathogens, NAAT [[id number]] (Normal) Collected: 02/01/20 0901 Order Status: Completed Lab Status: Final result Updated: 02/01/20 1444 Specimen: Stool Campylobacter, NAAT Not Detected Salmonella, NAAT Not Detected Shigella NAAT Not Detected Vibrio, NAAT Not Detected Yersinia enterocolitica, NAAT Not Detected Shigatoxin 1 Not Detected Shigatoxin 2 Not Detected Clostridioides difficle NAAT reflex to Tox Ag [[id number]] Collected: 02/01/20 09 Order Status: Completed Lab Status: Final result Updated: 02/01/20 1210 Specimen: Stool Narrative: The following orders were created for panel order Clostridioides difficle NAAT reflex to T ox Ag. Procedure Abnormality Status --------- ------ Clostridioides difficile...[[id number]] Final result Please view results for these tests on the individual orders. Clostridioides difficile NAAT Reflex [[id number]] Collected: 02/01/20 0901 Order Status: Completed Lab Status: Final result Updated: 02/01/20 1210 Specimen: Stool C. difficile, Interp Negative Comment: No Toxigenic C. difficile detected. Consider other causes of Diarrhea. Repeat te sting should not be performed within 7 days. C. difficile, NAAT Negative Culture, Blood [[id number]] Collected: 01/31/20 1721 Order Status: Completed Lab Status: Preliminary result Updated: 02/01/20 0531 Specimen: Blood from Line Culture No growth: Monitored continually by instrument for 5 days Influenza A and B RNA, NAAT [[id number]] (Normal) Collected: 01/31/20 1514 Order Status: Completed Lab Status: Final result Updated: 01/31/20 1557 Specimen: Tissue from Nasopharynx Influenza A PCR Negative Influenza B PCR Negative Respiratory pathogen panel, NAAT [[id number]] (Normal) Collected: 01/31/20 1513 Order Status: Completed Lab Status: Final result Updated: 01/31/20 1804 Specimen: Body Fluid from Nasopharynx Parainfluenza 1 Not Detected Adenovirus Not Detected Human Metapneumovirus Not Detected Rhinovirus/Enterovirus Not Detected Parainfluenza 3 Not Detected Coronavirus (COVID-19) NAAT [[id number]] (Normal) Collected: 01/31/20 0947 Order Status: Completed Lab Status: Final result Updated: 01/31/20 194 Specimen: Tissue from Nasopharynx SARS coronavirus 2 NAAT Not Detected Comment: See Scanned Report [facility] STAT instructions for COVID-19 tracking [[id number]] Collected: 01/31/20 0947 Order Status: Completed Lab Status: Final result Updated: 01/31/201940 Specimen: Tissue from Nasopharynx [facility] COVID STAT instruction done Culture, Blood [[id number]] Collected: 01/31/20 0907 Order Status: Completed Lab [...] this chart may have been created with [employer] recognition software. Occasi onal wrong-word or sound-alike substitutions may have occurred due to the inherent owen itations of voice recognition software. Please read the chart carefully and recognize, using context, where these substitutions have occurred erry, Chace hobson MD - 02/01/2020 12:29 PM PDTFormatting of this note might be different from the origin al. [place], [place] HOSPITALIST PROGRESS NOTE Patient: Ángela Crowley : 1930: Age: 89 y.o. MedRec: [id number] PCP: Candido Link MD Admission date: 01/31/2020 [...] x1 not to place or time. Passed LINE CREWMAN evaluation with dysphagia diet ordered. 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 troponins stable, no chest pain during admission. 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 Chace Higuera MD 02/01/2020 12:31 PM [facility] Subjective CC Pain noted in left arm [...] for input(s): IRON, TIBC, PCTSAT, FERRITIN, TSH, [id number], FOLATE in the last 168 hours. Inflammatory [...] ABG No results for input(s): PHART, PO2ART, HCX2OVR, DYK1RTE, BEART, S4ELQMRG in the last 168 h ours. No results for input(s): SPECSOURCE, PHPOCB, PCO2, PO2, HCO3, TCO2, BEART, SNVC7SFM in the last 168 hours. Drug of [...] Component Value Units Date/Time Stool Pathogens, NAAT [[id number]] Collected: 02/01/20900 Order Status: Sent Lab Status: In process Updated: 02/01/20904 Specimen: Stool Clostridioides difficle NAAT reflex to Tox Ag [[id number]] Collected: 02/01/20900 Order Status: Completed Lab Status: Final result Updated: 02/01/20 1210 Specimen: Stool Narrative: The following orders were created for panel order Clostridioides difficle NAAT reflex to T ox Ag. Procedure Abnormality Status --------- ------ Clostridioides difficile...[[id number]] Final result Please view results for these tests on the individual orders. Clostridioides difficile NAAT Reflex [[id number]] Collected: 02/01/20 0901 Order Status: Completed Lab Status: Final result Updated: 02/01/20 1210 Specimen: Stool C. difficile, Interp Negative Comment: No Toxigenic C. difficile detected. Consider other causes of Diarrhea. Repeat te sting should not be performed within 7 days. C. difficile, NAAT Negative Culture, Blood [[id number]] Collected: 01/31/20 1721 Order Status: Completed Lab Status: Preliminary result Updated: 02/01/20 0531 Specimen: Blood from Line Culture No growth: Monitored continually by instrument for 5 days Influenza A and B RNA, NAAT [[id number]] (Normal) Collected: 01/31/20 1514 Order Status: Completed Lab Status: Final result Updated: 01/31/20 1557 Specimen: Tissue from Nasopharynx Influenza A PCR Negative Influenza B PCR Negative Respiratory pathogen panel, NAAT [[id number]] (Normal) Collected: 01/31/20 1513 Order Status: Completed Lab Status: Final result Updated: 01/31/20 1804 Specimen: Body Fluid from Nasopharynx Parainfluenza 1 Not Detected Adenovirus Not Detected Human Metapneumovirus Not Detected Rhinovirus/Enterovirus Not Detected Parainfluenza 3 Not Detected Coronavirus (COVID-19) NAAT [[id number]] (Normal) Collected: 01/31/20946 Order Status: Completed Lab Status: Final result Updated: 01/31/201941 Specimen: Tissue from Nasopharynx SARS coronavirus 2 NAAT Not Detected Comment: See Scanned Report [facility] STAT instructions for COVID-19 tracking [[id number]] Collected: 01/31/20946 Order Status: Completed Lab Status: Final result Updated: 01/31/201940 Specimen: Tissue from Nasopharynx [facility] COVID STAT instruction done Culture, Blood [[id number]] Collected: 01/31/20 09 Order Status: Completed Lab [...] this chart may have been created with [employer] voice recognition software. Occasi onal wrong-word or [...] | | 2019 | Visit | | [employer] [address] | | | | | | [place] | | | | | | [address] | | | | | | | | +--------+ + + + + | 04/11/ | Appointment | Radiology | Shawn Michael | | | 2019 | | | MD [address] | | | | | | [address] [place] | | | | | | [place] [address] | | | | | | [phone] | | | | | | | | +--------+ + + + + | 04/13/ | Office | Cardiology | Shawn Michael | | | 2019 | Visit | | MD [address] | | | | | | [address] [place] | | | | | | [place], [place] [address] | | | | | | [phone] | | | | | | | [...] hypoxia | | | | | | ([facility]) Pressure | | | | [...] | | | | failure ([facility]) | | | | | | Chronic obstructive | | | | | | pulmonary disease, | | | | | | unspecified COPD | | | | | | type ([facility]) Moderate | | | | | | protein-calorie | | | | | | malnutrition ([facility]) | | | | | [...] J?MRN: | | | | | | [id number] | | | [id number] | | | riteri | | | [...] | | | St. | | | [place] | | | y | | | [...] | | | s | | | [place] | | | ED | | | Dispar | | | ity | | | Measur | | | e - | | | [place] | | | has | | | [...] | | | s. | | | [place] | | | | | | Health [...] | | | By: | | | [place] | | | | | | Health [...] | | 16 0 | | | [place] | | | | | | [facility] | | | l | | | Hospit | | | al 1 0 | | | [facility] | [facility] | | | [place] | | | y | | | [...] | | | St. | | | [place] | | | y H. | | [...] | | | St. | | | [place] | | | y H. | | [...] | | e of | | | [place] | | | | | | palencia [...] | | e of | | | [place] | | | | | | palencia [...] | | e of | | | [place] | | | | | | palencia [...] | | | 2019 | | | [place] | | | | | | Genera [...] | | | 2019 | | | [place] | | | | | | Genera [...] | | | 2019 | | | [place] | | | | | | Genera [...] | | | M.D. | | | [employer] | | | al | | | [...] + + + + | Product | [id number] | | [facility] | | | Code | | | [facility] | [facility] | | | [facility] | | | | | | C[facility] - | | | | | | BLOOD BANK | | + + + + + + | UNIT # | [id number] | | [facility] | | | | [...] + + + + | Blood | [id number] | | [facility] | | | Product [...] St | [place] | | | [facility] | | [address] | | | - BLOOD BANK | [...] [address] | [place] | [phone] | | [facility] | | [address] | | | - LABORATORY | | [...] | [address] | [place], [place] | [phone] | | [facility] | | [address] | | | - LABORATORY | | [...] | | | FILTRATION | mL/min/1.73m2 | [facility] | | | SAMMARINESE | RATE,ESTIMATED | | MEDICAL | | | | mL/min/1.05z7Ibza than | | CENTER - | | [...] [address] | [place] | [phone] | | [facility] | | [address] | | | - LABORATORY | | [...] St | [place] | | | [facility] | | [address] | | | - BLOOD BANK | [...] + | [facility] | [address] | [place] | [phone] | | [facility] | | [address] | | | - LABORATORY | | [...] + | [facility] | [address] | [place] | [phone] | | [facility] | | [address] | | | - LABORATORY | | [...] + | [facility] | [address] | [place] | [phone] | | [facility] | | [address] | | | - LABORATORY | | [...] | mL/min/1.73m2 | [facility] | | | SAMMARINESE | RATE,ESTIMATED | | MEDICAL | | | | mL/min/1.56h9Rfng than | | CENTER - | | [...] [address] | [place] | [phone] | | [facility] | | [address] | | | - LABORATORY | | [...] | | | | mmol/L | [facility] | | | | | | MEDICAL [...] + | [facility] | [address] | [place] | [phone] | | [facility] | | [address] | | | - LABORATORY | | [...] + | [facility] | [address] | [place] | [phone] | | [facility] | | [address] | | | - LABORATORY | | [...] + | [facility] | [address] | [place], [place] | [phone] | | [facility] | | [address] | | | - LABORATORY | | [...] + | [facility] [facility] | [address] | [place] | [phone] | | [facility] | | [address] | | | - LABORATORY | | [...] | | | FILTRATION | mL/min/1.73m2 | [facility] | | | SAMMARINESE | RATE,ESTIMATED | | MEDICAL | | | | mL/min/1.09q2Hulq than | | CENTER - | | [...] [address] | [place] | [phone] | | [facility] | | [address] | | | - LABORATORY | | [...] + | [facility] | [address] | [place] | [phone] | | [facility] | | [address] | | | - LABORATORY | | [...] [address] | [place] | [phone] | | [facility] | | [address] | | | - LABORATORY | | [...] | | | | g/dL | [facility] | | | | | | MEDICAL [...] [address] | [place] | [phone] | | [facility] | | [address] | | | - LABORATORY | | [...] [address] | [place] | [phone] | | [facility] | | [address] | | | - LABORATORY | | [...] | [address] | [place], [place] | [phone] | | [facility] | | [address] | | | - LABORATORY | | [...] | | SATURATION | | | [facility] | | | | | | MEDICAL | | | | | | CENTER - | | | | | | LABORATORY | | + + + + + + + + | Specimen | + + | Blood | + + + + + + + | Performing | Address | City/State/[facility] [place] [facility] | Phone Number | | Organization | | | | + + + + + | [facility] | [address] | [place] | [phone] | | [facility] | | [address] | | | - LABORATORY | | [...] 22 | 9 - 23 mg/dL | [facility] | | | | | | [facility] | | | | | | MEDICAL | | | | | | CENTER - | | | | | | LABORATORY | | + + + + + + | Creatinine | 0.63 | 0.55 - 1.02 | [facility] | | | | | mg/dL | [facility] | | | | | | MEDICAL | | | | | | CENTER - | | | | | | LABORATORY | | + + + + + + | eGFR if not | >60Comment: GLOMERULAR | >=60 | [facility] | | | | FILTRATION | mL/min/1.73m2 | [facility] | | | SAMMARINESE | RATE,ESTIMATED | | MEDICAL | | | | mL/min/1.78t9Fxim than | | CENTER - | | [...] + | [facility] | [address] | [place] | [phone] | | [facility] | | [address] | | | - LABORATORY | | [...] [address] | [place] | [phone] | | [facility] | | [address] | | | - LABORATORY | | [...] [address] | [place] | [phone] | | [facility] | | [address] | | | - LABORATORY | | [...] + | [facility] | [address] | [place] | [phone] | | [facility] | | [address] | | | - LABORATORY | | [...] | [address] | [place], [place] | [phone] | | [facility] | | [address] | | | - LABORATORY | | [...] mL/min/1.73m2 | [facility] | | | SAMMARINESE | RATE,ESTIMATED | | MEDICAL | | | | mL/min/1.63p3Huks than | | CENTER - | | [...] 7.9 (L) | 8.7 - 10.4 | [facility] | | | | | mg/dL | [...] [address] | [place] | [phone] | | [facility] | | [address] | | | - LABORATORY | | [...] [address] | [place] | [phone] | | [facility] | | [address] | | | - LABORATORY | | [...] | | | fragilisComment: The | | [facility] | | | | drug of choice [...] | Culture | 4+ Propionibacterium | | [facility] | | | | propionicumComment: | | [facility] | | | | Propionibacteria are | [...] + | [facility] | 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 | | | |Dictated and Signed by: Patrick Rodriguez MD | | Electronically signed: 02/03/2020 10:50 AM | + + + +---------+ + + | Performing | Address | City/State/[place] [facility] Cent[facility]ode | Phone Number | | Organization [...] + | [facility] | [address] | [place] | [phone] | | [facility] | | [address] | | | - LABORATORY | | [...] mL/min/1.73m2 | [facility] | | | SAM[place]ESE | RATE,ESTIMATED | | MEDICAL | | | | mL/min/1.31q4Vbgn than | | CENTER - | | [...] + | [facility] | [address] | [place] | [phone] | | [facility] | | [address] | | | - LABORATORY | | [...] | | | | g/dL | [facility] | | | | | | MEDICAL [...] | [address] | [place] | [phone] | | [facility] | | [address] | | | - LABORATORY | | [...] [address] | [place] | [phone] | | [facility] | | [address] | | | - LABORATORY | | [...] 635 (H)Comment: New | <100 pg/mL | [facility] | | | | method in use [...] + | [facility] | [address] | [place] | [phone] | | [facility] | | [address] | | | - LABORATORY | | [...] ST. | [address] | [place] | [phone] | | [facility] | | [address] | | | - LABORATORY | | [...] | | GLOMERULAR FILTRATION | mL/min/1.73m2 | [facility] | | | SAMMARINESE | RATE,ESTIMATED | | MEDICAL | | | | mL/min/1.31n7Kagn than | | CENTER - | | [...] + | [facility] | [address] | [place] | [phone] | | [facility] | | [address] | | | - LABORATORY | | [...] [address] | [place] | [phone] | | [facility] | | [address] | | | - LABORATORY | | [...] + | [facility] | [address] | [place] | [phone] | | [facility] | | [address] | | | - LABORATORY | | [...] - 1.030 | [facility] | | | [place], | | | [facility] | | [...] [address] | [place] | [phone] | | [facility] | | [address] | | | - LABORATORY | | [...] [address] | [place] | [phone] | | [facility] | | [address] | | | - LABORATORY | | [...] | [address] | [place], [place] | [phone] | | [facility] | | [address] | | | - LABORATORY | | [...] [address] | [place] | [phone] | | [facility] | | [address] | | | - LABORATORY | | [...] mL/min/1.73m2 | [facility] | | | SAM[place]ESE | RATE,ESTIMATED | | MEDICAL | | | | mL/min/1.74u1Joqx than | | CENTER - | | [...] + | [facility] | [address] | [place] | [phone] | | [facility] | | [address] | | | - LABORATORY | | [...] [address] | [place] | [phone] | | [facility] | | [address] | | | - LABORATORY | | [...] | | | | | | [employer] | | | | | [...] [address] | [place] | [phone] | | [facility] | | [address] | | | - LABORATORY | | [...] | | | | | | [employer] | | | | | [...] [address] | [place] | [phone] | | [facility] | | [address] | | | - LABORATORY | | [...] + | [facility] | [address] | [place] | [phone] | | [facility] | | [address] | | | - LABORATORY | | [...] + | [facility] | [address] | [place] | [phone] | | [facility] | | [address] | | | - LABORATORY | | [...] | [address] | [place], [place] | [phone] | | [facility] | | [address] | | | - LABORATORY | | [...] + | [facility] | [address] | [place], [place] | [phone] | | [facility] | | [address] | | | - LABORATORY | | [...] | | | | LEONIDAS CALVO MD ([id number]) | | | | | | on [...] [address] | [place] | [phone] | | [facility] | | [address] | | | - LABORATORY | | [...] in | 12 - 53 U/L | [facility] | | | | use as of December 02 | | [facility] | | | | 2018. Check reference [...] + | [facility] | [address] | [place] | [phone] | | [facility] | | [address] | | | - LABORATORY | | [...] method in use as of | | [facility] | | | | December [...] [address] | [place] | [phone] | | [facility] | | [address] | | | - LABORATORY | | [...] | | | | | | [employer] | | | | | [...] [address] | [place] | [phone] | | [facility] | | [address] | | | - LABORATORY | | [...] | | | | | | [facility] | | | | | | MEDICAL [...] + | [facility] | [address] | [place] | [phone] | | [facility] | | [address] | | | - LABORATORY | | [...] + | [facility] | [address] | [place] | [phone] | | [facility] | | [address] | | | - LABORATORY | | [...] [address] | [place] | [phone] | | [facility] | | [address] | | | - LABORATORY | | [...] [address] | [place] | [phone] | | [facility] | | [address] | | | - LABORATORY | | [...] 1.06 (H) | 0.55 - 1.02 | [facility] | | | | | mg/dL | [...] mL/min/1.73m2 | [facility] | | | [place] | RATE,ESTIMATED | | MEDICAL | | | | mL/min/1.51d3Qasn than | | CENTER - | | [...] [address] | [place] | [phone] | | [facility] | | [address] | | | - LABORATORY | | [...] + | [facility] | [address] | [place] | [phone] | | [facility] | | [address] | | | - LABORATORY | | [...] | 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
--- OUTSIDE RECORDS SUMMARY | ~2020-03-14 | XMS | Encounter Summary ---
Demographics + + + | Address | [address] | | | [place] [address] | + + + | Home Phone [...] + + + | Author | [facility] | | | and [place] | + + + | Organization | [facility] | | | [...] Team Providers + +------+ + | Care Black Ash Burner Operator Name | Role | Phone | [...] | +--------+ + + + + | 12/11/ | Home Care | [facility] | Manisha Rivas, | SN [facility] ([place]) | | 2020 | Visit | [facility] [address] | [place] | | | | | [address] [place] | | | | | | [address] | | | | | | [phone] | | | +--------+ + + + [...] + + + | Blood Pressure | 120/60 | 12/12/2019 1:04 PM | | | | | PDT | | + + + + + | Pulse | 90 | 12/12/2019 1:04 PM | | | | | PDT | | + + + + + | Temperature | 37.4 C (99.3 F) | 12/12/2019 1:04 PM | | | | | PDT | | + + + + + | Respiratory Rate | 36 | 12/12/2019 1:04 PM | | | | | PDT | | + + + + + | Oxygen Saturation | 98% | 12/12/2019 1:04 PM | | | | | PDT | | + + + + + | Inhaled Oxygen | - | - | | | Concentration | | | | + + + + + | Weight | 53.5 kg (118 lb) | 12/12/2019 1:04 PM | | | | | PDT | | + + + + + | Height | 165.1 cm (5' 5") | 12/12/2019 1:04 PM | | | | | PDT | | + + + + + | Body Mass Index | 19.64 | 12/12/2019 1:04 PM | | | | | PDT [...] [place] | | | | | | [id number] | | | | | | | | +--------+ + + + + | 04/11/ | Appointment | Radiology | Shawn Michael | | | 2019 | | | MD Marcelino [address] | | | | | [address] | | | | | | [place] [address] | | | | | | [phone] | | | | | | | | +--------+ + + + + | 04/13/ | Office | Cardiology | Shawn Michael | | | 2020 | Visit | | MD Marcelino [address] | | | | | | [address] | | | | | | [place] [address] | | | | | | [phone] | | | | | | | [...] Plan + + | Visit Type - SN - [facility] | | Discipline - Group Home | + + + + +--------+--------+-------+ + | Problem | Description | Start | Status | Goals | Interventio | | | | Date | | | ns | + + +--------+--------+-------+ + | HH SHARED AT RISK | At risk for | | | - | 1 problem | | FOR PRESSURE [facility] | pressure ulcer | | Active | | | | Disciplines: | | 020 | | | interventio | | Group Home | | | | | n | | | | | | | scheduled/d | | | | | | | ocumented | | | | | | | in this | | | | | | | visit | + + +--------+--------+-------+ + | HH SHARED PAIN | Pain | | | - | 1 problem | | Disciplines: | | | Active | | | | Group Home | | 020 | | | interventio | | | | | | | n | | | | | | | scheduled/d | | | | | | | ocumented | | | | | | | in this | | | | | | | visit | + + +--------+--------+-------+ + | HH SN Medication | | | | - | 1 problem | | Management | | | Active | | | | Disciplines: | | 020 | | | interventio | | Group Home | | | | | n | | | | | | | scheduled/d | | | | | | | ocumented | | | | | | | in this | | | | | | | visit | + + +--------+--------+-------+ + | Health Promotion | Immunizations | | | - | 1 problem | | Disciplines: | | | Active | | | | Group Home, | | 020 | | | interventio | | Physical Therapy, | | | | | n | | Occupational | | | | | scheduled/d | | Therapy, Home Health | | | | | ocumented | | Jana, [employer], | | | | | in this | | Respiratory Therapy | | | | | visit | + + +--------+--------+-------+ + | | 3L O2 NC. | | | - | 1 problem | | Oxygenation/Respirat | | | Active | | | | ory Function | | 020 | | | interventio | | Disciplines: | | | | | n | | Group Home | | | | | scheduled/d | | | | | | | ocumented | | | | | | | in this | | | | | | | visit | + + +--------+--------+-------+ + | Wound Management | Pressure sore on | | | - | 1 problem | | Disciplines: | Coccyx Stage 2 | | Active | | | | Group Home | | 020 | | | interventio | | | | | | | n | | | | | | | scheduled/d | | | | | | | ocumented | | | | | | | in this | | | | | | | visit | + + +--------+--------+-------+ + + + +--------+--------+ + | Intervention | Associated | Status | Varian | Visit Notes | | | Problem/Goal | | ce | | + + +--------+--------+ + | Pressure ulcer | Problem: SHARED | | | | | prevention | AT RISK FOR PRESSURE | Comple | | | | Description: | [facility] | yoel | | | | Instruct PT/CG in | | | | | | ways to prevent skin | | | | | | breakdown which | | | | | | includes frequent | | | | | | position changes, | | | | | | proper positioning | | | | | | to relieve pressure, | | | | | | careful skin | | | | | | assessment, hygiene | | | | | | and use of pressure | | | | | | relieving devices | | | | | | and provide teaching | | | | | | handout. Evaluate | | | | | | patient's skin | | | | | | integrity and | | | | | | general condition of | | | | | | skin. RN to assess | | | | | | PT/CG compliance | | | | | | with preventing | | | | | | pressure sores. | | | | | + + +--------+--------+ + | Pain management | Problem: SHARED | | | | | Description: | PAIN | Comple | | | | Instruct PT/CG | | yoel | | | | regarding pain | | | | | | management, | | | | | | providing teaching | | | | | | handout. Instruct | | | | | | PT/CG to take/ | | | | | | administer | | | | | | analgesics as | | | | | | ordered in | | | | | | sufficient quantity | | | | | | to relieve pain. | | | | | | RN to assess for | | | | | | pain characteristics | | | | | | including kind, | | | | | | location, response | | | | | | to activity, | | | | | | effectiveness of | | | | | | pain relief | | | | | | measures. RN will | | | | | | assess and verify | | | | | | effectiveness of | | | | | | pain medication and | | | | | | pain relief | | | | | | measures. | | | | | + + +--------+--------+ + | Instruct | Problem: HH SN | | | Instructed caregiver | | medications | Medication | Comple | | on medication | | Description: RN to | Management | yoel | | administration, purpose, | | reconcile and | | | | dosages, preparation, | | instruct PT/CG | | | | scheduling, side | | regarding medication | | | | effects, food/drug | | effects, side | | | | interactions, and | | effect, dose, route | | | | potential complications. | | and when to notify | | | | Current regimen and | | MD/RN and leave | | | | compliance reviewed with | | medication list in | | | | caregiver.The patient | | patient's home. | | | | and/or caregiver | | Instruct and /or | | | | verbalized understanding | | assist pt with | | | | of medication(s) as | | setting up | | | | instructed: Yes | | medication in | | | | | | mediset. Assess | | | | | | patient's compliance | | | | | | with medication | | | | | | regimen. Assess | | | | | | patient's response | | | | | | to change in | | | | | | medications | | | | | | reporting any | | | | | | unusual effects to | | | | | | MD. | | | | | + + +--------+--------+ + | Assess | Problem: Health | | | | | immunization status | Promotion | Comple | | | | Description: Have | | yoel | | | | you had a flu | | | | | | vaccine in the | | | | | | current flu season? | | | | | | no If yes, what was | | | | | | the date of your | | | | | | vaccination? If no, | | | | | | may I arrange one | | | | | | for you? Refused. | | | | | | If patient is 65 | | | | | | or older or if | | | | | | indicated per CDC | | | | | | Guidelines: Yes | | | | | | Have you ever had | | | | | | the pneumonia | | | | | | vaccine? 2017 If | | | | | | no, what is the | | | | | | reason? May I | | | | | | arrange one for you? | | | | | | | | | | | + + +--------+--------+ + | Assess/monitor | Problem: | | | | | respiratory status | Oxygenation/Respirat | Comple | | | | Description: | ory Function | yoel | | | | Instruct pt/CG safe | | | | | | O2 use. Assess O2 | | | | | | saturation each time | | | | | | RN visit. RN/ CG | | | | | | to notify MD if O2 | | | | | | sats < 89%. | | | | | + + +--------+--------+ + | Wound care | Problem: Wound | | | | | Description: Wound | Management | Comple | | | | type: Pressure sore | | yoel | | | | Wound location: | | | | | | Coccyx Wound care: | | | | | | Clean with WC/NS. | | | | | | May apply skin prep, | | | | | | foam with border or | | | | | | just skin barrior | | | | | | cream. Frequency: | | | | | | RN to change 1-2 | | | | | | x weekly | | | | | + + +--------+--------+ + documented in this encounter
--- OUTSIDE RECORDS SUMMARY | ~2020-03-14 | XMS | Encounter Summary ---
Demographics + + + | Address | [address] | | | [place] [address] | + + + | Home Phone | | + + + | Preferred Language | Unknown | + + + | Marital Status | | + + + | Zoroastrianism Affiliation | Unknown | + + + [...] Team Providers + +------+ + | Care Steam Conditioner Filling Name | Role | Phone | + [...] + + | Authorized | Specialty | Wound Care | Diagnoses | | Steven, | | | Services | | Pressure | Yana-Luis Carlost | PRABHJOT Echavarria | | | Required | | injury of | i, | [address] | | | | | sacral | Candido | CHRIS | | | | | region, | , MD [address] | [place] | | | | | stage [address] | [address] Phone: | | | | | ([facility]) | [place], | [phone] | | | | | | [place] | Fax: | | | | | | [address] | [phone] | | | | | | Phone: | | | | | | | [phone] | | | | | | | Fax: | | | | | | | [phone] | | + + + + + + + Reason for Visit + + + | Reason | Comments | + + + | TCM - Hosp FU | colitis | + + + Encounter Details +--------+---------+ + + + | Date | Type | Department | Care Team | Description | +--------+---------+ + + + | 03/07/ | Office | [facility] | Nikolay, | Pressure injury of | | 2019 | Visit | MEDICINE [address] | MD Candido | sacral region, stage | | | | [facility] | [address] [place] [address] | 3 ([facility]) (Primary | | | | [place] [address] | [place] [address] | Dx); Generalized | | | | [phone] | [phone] | osteoarthritis; | | | | | | Anemia, blood loss; | | | | | | retirement | | | | | | prescription opiate | | | | | | use | +--------+---------+ + + + Social History [...] + + + + | Weight | 46.3 kg (102 lb 1.2 | 03/07/2020 11:13 AM | | | | oz) | PDT | | + + + + + | Height | - | - | | + + + + + | Body Mass Index | 16.48 | 02/18/2020 12:31 PM | | | | | PDT | | + + + + + documented in this encounter Progress Notes Candido Link MD - 03/07/2020 11:15 AM PDTFormatting of this note might be d ifferent from the original. CHIEF COMPLAINT Chief Complaint Patient presents with TCM - Hosp FU colitis HPI Ángela Crowley is a 89 y.o. y/o female who presents today for several issues: She is a frail, elderly female with a multitude of health issues and several recent hospita lizations including one two weeks ago for acute anemia secondary to blood loss in the fall, requiring blood transfusion. She developed a sacral pressure ulcer that required debridement and she was discharged home with home health for wound care and nursing care, however, home health signed off the case due to patient and her son refusing a wheelchair. He is concerned that if she goes in a whe elchair she will stop walking. He is also not comfortable with her going to a [facility] as she had bad experiences in the past with the quality of care there and the patient is rel uctant about not leaving the home. Her son is with her today. He states he is happy to con maryjaneue to be her caregiver. They are looking for another option for wound care. Apparently she is using a air mattress but she does not like it because it feels lumpy. She also uses hydrocodone as below 4 times a day for a history of generalized osteoarthriti s, needs a refill. No drowsiness or confusion. Had a few falls recently but her son states that they were related to her blood loss anemia and on another occasion due to tripping on the oxygen tube rather than side effect from the pain medications.No alcohol or illicit drug s. Urine drug screen is due. No requests for early refills or aberrant behaviors. Recent hospital notes reviewed. ASSESSMENT & PLAN 1. Pressure injury of sacral region, stage 3 (HCC) - * [facility] - AMB Referral 2. Generalized osteoarthritis - Drugs of Abuse, Opiates, Confirm, Urine; Future - Drugs of Abuse, Screen, Urine; Future - HYDROcodone-acetaminophen (NORCO) 7.5-325 mg per tablet; Take 1 tablet by mouth every 6 h ours as needed for Pain. Dispense: 120 tablet; Refill: 0 3. 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 Dispense: 120 tablet; Refill: 0 - I checked the [place] state prescription monitoring program and it is appropriate. I'm orderi ng a urine drug screen and a confirmation for opiate urine screen today. I need both tests as the initial screening test is just a screening for drugs of abuse and other controlled hoyos bstances. It also looks for dilution of urine as well as possible contaminate detection amy t could indicate a tampered specimen. However, using the screening test alone is neither se nsitive nor specific and will not allow differentiation of specific opiate classes, nor is i t equipped to detect "pill shaving", alteration, or determine specific drug metabolites. Th erefore I am ordering an opiate urine drug confirmation test today. When both of these test s are combined, the accuracy, sensitivity and specificity of analyte detection are improved, resulting in a significant reduction of the risk for abuse, misuse, and diversion. Recent Review Flowsheet Data Opioid Management Classification 11/01/2019 03/07/2020 PDMP Reviewed [facility] Pre-adjustment Management Classification Low Low Management Classification - Manually Adjust based on Pre-adjustment and ORT Moderate No C hange Management Classification Adjusted by Comorbidities and Concurrent Meds Moderate High View Complete Flowsheet RELEVANT LABS WBC Date Value Ref Range Status 03/07/2020 12.9 (H) 4.0 - 11.0 K/uL Final 03/03/2020 13.6 (H) 4.0 - 11.0 K/uL Final RBC Date Value Ref Range Status 03/07/2020 3.16 (L) 3.70 - 5.20 M/uL Final 03/03/2020 3.84 3.70 - 5.20 M/uL Final Hemoglobin Date Value Ref Range Status 03/07/2020 9.6 (L) 11.5 - 16.0 g/dL Final 03/03/2020 11.6 11.5 - 16.0 g/dL Final Hematocrit Date Value Ref Range Status 03/07/2020 31.2 (L) 34.0 - 47.0 % Final 03/03/2020 37.1 34.0 - 47.0 % Final MCV Date Value Ref Range Status 03/07/2020 98.7 83.0 - 101.0 fL Final 03/03/2020 96.6 83.0 - 101.0 fL Final RDW-SD Date Value Ref Range Status 03/07/2020 60.7 (H) 35.1 - 46.3 fL Final 03/03/2020 63.0 (H) 35.1 - 46.3 fL Final Platelet Count Date Value Ref Range Status 03/07/2020 202 140 - 440 K/uL Final 03/03/2020 200 140 - 440 K/uL Final Na Date Value Ref Range Status 03/03/2020 134 (L) 136 - 145 mmol/L Final 02/29/2020 142 136 - 145 mmol/L Final K Date Value Ref Range Status 03/03/2020 4.8 3.4 - 5.1 mmol/L Final 02/29/2020 4.2 3.4 - 5.1 mmol/L Final Chloride, POC Date Value Ref Range Status 05/31/2019 109 98 - 109 mEq/L Final Cl Date Value Ref Range Status 03/03/2020 106 98 - 107 mmol/L Final 02/29/2020 108 (H) 98 - 107 mmol/L Final CO2 Date Value Ref Range Status 03/03/2020 24 20 - 31 mmol/L Final 02/29/2020 31 20 - 31 mmol/L Final Anion Gap Date Value Ref Range Status 03/03/2020 4 3 - 16 mmol/L Final 02/29/2020 3 3 - 16 mmol/L Final Glucose Date Value Ref Range Status 03/03/2020 85 60 - 106 mg/dL Final 02/29/2020 80 60 - 106 mg/dL Final BUN Date Value Ref Range Status 03/03/2020 21 9 - 23 mg/dL Final 02/29/2020 25 (H) 9 - 23 mg/dL Final Creatinine Date Value Ref Range Status 03/03/2020 0.80 0.55 - 1.02 mg/dL Final 02/29/2020 0.75 0.55 - 1.02 mg/dL Final Creatinine, POC Date Value Ref Range Status 05/31/2019 1.0 0.6 - 1.3 mg/dL Final Calcium Date Value Ref Range Status 03/03/2020 8.8 8.7 - 10.4 mg/dL Final 02/29/2020 8.3 (L) 8.7 - 10.4 mg/dL Final Magnesium Date Value Ref Range Status 02/28/2020 2.1 1.6 - 2.6 mg/dL Final 02/27/2020 2.1 1.6 - 2.6 mg/dL Final Albumin Date Value Ref Range Status 03/03/2020 3.1 (L) 3.2 - 4.8 g/dL Final 02/27/2020 2.9 (L) 3.2 - 4.8 g/dL Final Albumin/Globulin Ratio Date Value Ref Range Status 03/03/2020 1.2 0.8 - 1.9 Final 02/27/2020 1.3 0.8 - 1.9 Final Globulin Date Value Ref Range Status 03/03/2020 2.5 2.1 - 3.8 g/dL Final 02/27/2020 2.3 2.1 - 3.8 g/dL Final Alkaline Phosphatase Date Value Ref Range Status 03/03/2020 106 46 - 116 U/L Final 02/27/2020 76 46 - 116 U/L Final ALT Date Value Ref Range Status 03/03/2020 27 10 - 49 U/L Final 02/27/2020 40 10 - 49 U/L Final AST Date Value Ref Range Status 03/03/2020 27 0 - 34 U/L Final 02/27/2020 27 0 - 34 U/L Final Bilirubin Total Date Value Ref Range Status 03/03/2020 0.5 0.3 - 1.2 mg/dL Final 02/27/2020 0.3 0.3 - 1.2 mg/dL Final REVIEW OF SYSTEMS Constitutional: No Weight Change, No Fever, Tired. ENT/Mouth: No Hearing Changes, No Ear Pain, No Nasal Congestion, No Sinus Pain, No Hoarsen ess, No sore throat, No Rhinorrhea, No Swallowing Difficulty. Eyes: No Eye Pain, No Vision Changes. Cardiovascular: No Chest Pain, No Dyspnea on Exertion. Respiratory: No Cough, No SOB Gastrointestinal: No Nausea, No Vomiting, No Pain. Genitourinary: No Dysuria, No Urinary Frequency, No Hematuria. Musculoskeletal: Multiple arthralgias, No Myalgias. Skin: No Rashes, No Skin Lesions Neuro: No Weakness, No Numbness, No Headache. Psych: No Anxiety/Panic, No Depression. Heme/Lymph: No Bruising, No Bleeding. Endocrine: No Polyuria, No Polydipsia, No Temperature Intolerance. PHYSICAL EXAM VITAL SIGNS: BP (!) 80/30 | Pulse 71 | Temp 37.2 C (99 F) (Temporal) | Wt 46.3 kg (1 02 lb 1.2 oz) | SpO2 93% | BMI 16.48 kg/m Constitutional: Frail, thin, No acute distress, Pleasant female. Cardiovascular: Regular rate & rhythm, No murmurs, No rubs, No gallops. No lower extremitie s edema. Thorax & Lungs: Thin chest, No respiratory distress, distant breath sounds, no crackles, wh eezing, or rubs. Skin: 1 in diameter pressure sore stage 3 (to bone) in sacral area, with mild erythema, no drainage. Musculoskeletal: Significantly decreased range of motion in all major joints. No tenderness to palpation or major deformities noted. Neurologic: Alert & oriented x 3, No focal deficits noted. Psychiatric: Affect normal, Judgment normal, Mood normal. PAST MEDICAL HISTORY Past Medical History: Diagnosis Date Aortic stenosis COPD (chronic obstructive pulmonary disease) ([facility]) Coronary artery disease Kidney stone MRSA (methicillin resistant Staphylococcus aureus) 11/2019; 02/03/2020 Nasal screen and sputum; Sacral wound Rheumatic fever Tuberculosis Venereal disease FAMILY HISTORY [...] Start date: 1944 Last attempt to quit: 1969 Years since quittin.4 Smokeless tobacco: Never Used Substance and Sexual Activity Alcohol use: Never Frequency: Never Drug use: Never SURGICAL HISTORY Past Surgical History: Procedure Laterality Date 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 CHOLECYSTECTOMY COLONOSCOPY N/A 06/11/2019 Procedure: COLONOSCOPY-Possible Flex Sig; Surgeon: Edwin Stoddard MD; Location: [facility] PROC[facility]URE [facility] HYSTERECTOMY NIRMAL AND BSO TONSILLECTOMY AND ADENOIDECTOMY UPPER GASTROINTESTINAL ENDOSCOPY N/A 06/07/2019 Procedure: EGD; Surgeon: Edwin Stoddard MD; Location: [facility] PROCEDURE [facility] UPPER GASTROINTESTINAL ENDOSCOPY N/A 08/20/2019 Procedure: EGD; Surgeon: John Grimes MD; Location: [facility] PROC[facility]URE [facility] CURRENT MEDICATIONS Current Outpatient Medications Medication Sig Dispense Refill acetaminophen (TYLENOL) 500 mg tablet Take 500 mg by mouth every 6 hours as needed for Pain. albuterol 2.5 mg/3 mL nebulizer solution Take 3 mLs by nebulization every 4 hours as ne eded for Wheezing or Shortness of Breath. Inhale 1-2 treatments in nebulizer every 20 minute s for 3 doses, then 1-4 treatments every 1-4 hours as needed 60 vial 0 amoxicillin-clavulanate (AUGMENTIN) 875-125 mg per tablet Take 1 tablet by mouth 2 time s daily. arformoterol (BROVANA) 15 MCG/2ML NEBU Take 2 mLs by nebulization Twice Daily. Length: Lifetime, Dx: J44.9 120 mL 3 ascorbic acid (VITAMIN C) 500 mg tablet Take 500 mg by mouth Daily. aspirin 81 mg chewable tablet Take 1 tablet by mouth Daily. 30 tablet 3 atorvaSTATin (LIPITOR) 20 mg tablet TAKE 1 TABLET BY MOUTH ONCE DAILY IN THE MORNING 90 tablet 0 brimonidine (ALPHAGAN) 0.2% ophthalmic solution Place 1 drop into both eyes 2 times millie ly. 12 budesonide (PULMICORT) 0.5 mg/2 mL nebulizer solution Take 2 mLs by nebulization 2 time s daily. Dx Code J44.90 180 mL 5 calcium carbonate (TUMS) 500 mg chewable tablet Chew and swallow 2 tablets Twice daily as needed for Heartburn or Indigestion. calcium, as carbonate, (CALTRATE) 600 mg tablet Take 600 mg by mouth daily (with breakf ast). carvedilol (COREG) 6.25 mg tablet Take 1 tablet by mouth 2 times daily (with breakfast & dinner) for 30 days. 60 tablet 0 cetirizine (ZYRTEC) 10 mg tablet Take 1 tablet by mouth once daily 30 tablet 1 cholecalciferol (VITAMIN D-3) 25 mcg (1,000 units) tablet Take 1,000 Units by mouth Millie ly. collagenase (SANTYL) ointment Apply to the area of tissue necrosis around the wound millie ly with wound care 0 Cranberry 600 MG TABS Take 1 tablet by mouth Daily. dicyclomine (BENTYL) 10 mg capsule Take 1 capsule by mouth Daily as needed for Other (A s needed for abdominal cramps). 30 capsule 0 docusate sodium (COLACE) 250 MG capsule Take 1 capsule by mouth Twice daily as needed for Constipation. Hold for loose stools 60 capsule 5 dorzolamide (TRUSOPT) 2% ophthalmic solution Place 1 drop into both eyes 2 times daily. 12 escitalopram (LEXAPRO) 10 mg tablet Take 1.5 tablets by mouth Daily. 45 tablet 0 famotidine (PEPCID) 40 MG tablet Take 1 tablet by mouth nightly. 90 tablet 1 ferrous sulfate 325 mg tablet Take 1 tablet by mouth daily (with breakfast). 90 tablet 3 fluticasone (FLONASE) 50 mcg/nasal spray 1 spray by Nasal route Daily as needed for All ergies. furosemide (LASIX) 20 mg tablet Take 1 tablet by mouth 2 times daily. 60 tablet 0 HYDROcodone-acetaminophen (NORCO) 7.5-325 mg per tablet Take 1 tablet by mouth every 6 hours as needed for Pain. 120 tablet 0 ketoconazole (NIZORAL) 2% cream Apply topically 2 times daily. 30 g 2 lactobacillus GG (CULTURELLE) capsule Take 1 capsule by mouth 2 times daily. As probiot ic (or use some similar OTC probiotic) for 10 days 20 capsule 0 latanoprost (XALATAN) 0.005% ophthalmic solution Place 1 drop into both eyes nightly. 12 metoprolol succinate (TOPROL-XL) 25 mg 24 hr tablet Take 25 mg by mouth nightly. Multiple Vitamins-Minerals (MULTIVITAMIN GUMMIES ADULT PO) Take 1 gummy by mouth daily Multiple Vitamins-Minerals (PRESERVISION AREDS 2) CAPS Take 1 capsule by mouth 2 times daily. nitroglycerin (NITROSTAT) 0.[address] 0.4 mg under the tongue every 5 minute s as needed for Chest pain. nystatin (MYCOSTATIN) 086573 UNIT/GM cream ondansetron (ZOFRAN ODT) 4 mg disintegrating tablet Take 1 tablet by mouth every 6 hour s as needed for Nausea. 15 tablet 0 oxygen Inhale 3 L into the lungs continuous. ALETHEA: 99 months. 1 Container 2 pantoprazole (PROTONIX) 40 mg tablet Take 1 tablet by mouth every morning (before break fast). 90 tablet 1 polyethylene glycol (MIRALAX) packet Take 17 g by mouth Daily as needed for Constipatio n. polyvinyl alcohol (LIQUITEARS) 1.4% ophthalmic solution Place 2 drops into both eyes ev janae morning. predniSONE (DELTASONE) 10 mg tablet Take 1 tablet by mouth Daily. 30 tablet 5 prochlorperazine 10 mg tablet Take 1 tablet by mouth every 8 hours as needed. 30 tablet 0 Respiratory Therapy Supplies [facility] O[place] mask. Please evaluate and provide an O 2 mask that is more useful to the patient. Duration: Lifetime Dx: COPD, severe J44.9 1 each 0 senna (SENOKOT) 8.6 mg tablet Take 1 tablet by mouth Twice daily as needed for Constip ation. 14 tablet sodium chloride (OCEAN) 0.65% nasal spray 2 sprays by Each Nare route. two to three raudel es daily as needed for nasal dryness sulfamethoxazole-trimethoprim (BACTRIM DS) 800-160 mg per tablet Take 1 tablet by mouth 2 times daily. UNABLE TO FIND Powder free dispoable gloves, size large 2 Box 3 No current facility-administered medications for this visit. ALLERGIES Allergies Allergen Reactions Flagyl [Metronidazole] Nausea And Vomiting and GI Upset Percocet [Oxycodone] Unknown Pregabalin Unknown Lyrica FOLLOW-UP No follow-ups on file. Notes: 1. Parts of this documentwere created using [employer] speech recognition software. As a resu lt, there may be unintended word spelling errors. Every attempt was made to correct the di ctation. documente d in this encounter Plan of Treatment +--------+ + + + + | Date | Type | Specialty | Care Team | Description | +--------+ + + + + | 03/23/ | Office | Anticoagulation | García Harris, | | 2019 | Visit | | [address] | | | | | | [place] | | | | | | [address] | | | | | | | | +--------+ + + + + | 04/11/ | Appointment | Radiology | Shawn Michael | | | 2019 | | | MD [address] | | | | | | [address] [place] | | | | | | [place] [address] | | | | | | [phone] | | | | | | | | +--------+ + + + + | 04/13/ | Office | Cardiology | Shawn Michael | | | 2019 | Visit | | MD [address] | | | | | | [address] [place] | | | | | | [place] [address] | | | | | | [phone] | | | | | | | | +--------+ + + + + + + +--------+ + + | Name | Type | Priori | Associated Diagnoses | Order Schedule | | | | ty | | | + + +--------+ + + | * [facility] | Outpatient | Routin | Pressure injury of | Ordered: 03/07/2020 | | CARE - AMB Referral | Referral | e | sacral region, | | | | | | stage 3 (HCC) | | + + +--------+ + + documented as of this encounter Results CBC with Differential (03/07/2020 12:27 PM PDT) + + + + + [...] | Preliminary studies have | | [facility] | | | s | indicated the [...] - 0.01 | [facility] | | | nRPAUL | | K/uL | [facility] | [...] [address] | [place] | [phone] | | [facility] | | [address] | | | - LABORATORY | | [...] | | Screen, | | | [facility] | | | Urine | | | MEDICAL | | | | | | CENTER - | | | | | | LABORATORY | | + + + + + + | Barbiturate | Negative | Negative | [facility] | | | s Screen, | | | [facility] | | | Urine | | | MEDICAL | | | | | | CENTER - | | | | | | LABORATORY | | + + + + + + | Benzodiazep | Negative | Negative | [facility] | | | ash | | | [facility] | | | Screen, | | | MEDICAL | | | Urine | | | CENTER - | | | | | | LABORATORY | | + + + + + + | Cannabinoid | Negative | Negative | [facility] | | | s Screen, | | | [facility] | | | Urine | | | MEDICAL | | | | | | CENTER - | | | | | | LABORATORY | | + + + + + + | Cocaine | Negative | Negative | [facility] | | | Screen, | | | [facility] | | | Urine | | | MEDICAL | | | | | | CENTER - | | | | | | LABORATORY | | + + + + + + | Methadone | Negative | Negative | [facility] | | | Screen, | | | [facility] | | | Urine | | | MEDICAL | | | | | | CENTER - | | | | | | LABORATORY | | + + + + + + | Opiates | Positive (A) | Negative | [facility] | | | Screen, | | | [facility] | | [...] | [address] | [place], [place] | [phone] | | [facility] | | [address] | | | - LABORATORY | | [...] + | Performed at: 01 - Pathology [facility] [address] | REFERENCE LAB | | [facility] [address], [place] [id number] Underwriting Analyst: Nenita CHAVEZ | | Boogie PhD, Phone: [phone] | | + + + + + + + + | Performing | Address | City/State/Zipcode | Phone Number | | Organization | | | | + + + + + | [facility] | [address] | [place], [place] | [phone] | | [place] [place] | [place] | [address] | | + + + + + documented in this encounter Visit Diagnoses + + | Diagnosis | + + | Pressure injury of sacral region, stage 3 (HCC) - Primary | + + | Generalized osteoarthritis Generalized osteoarthrosis, unspecified site | + + | Anemia, blood loss Iron deficiency anemia secondary to blood loss (chronic) | + + | 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
--- OUTSIDE RECORDS SUMMARY | ~2020-03-14 | XMS | Encounter Summary ---
Demographics + + + | Address | [address] | | | [place] [address] | + + + | Home Phone | | + + + | Preferred Language | Unknown | + + + | Marital Status | | + + + | Pentecostalism Affiliation | Unknown | + + + | Race | Unknown | + + + | Ethnic Group | Unknown | + + + Author + + + | Author | [facility] | | | and [place] | + + + | Organization | [facility] | | | [...] Providers + +------+ + | Care Manager Customer Service Name | Role | Phone | + [...] + | 12/12/ | Home Care | [facility] [place] | Layla Pablo | CASE COMMUNICATION | | 2020 | Visit | [place] [address] | | | | | | [address] [place] | | | | | | [address] | | | | | | [phone] | | | +--------+ + + + [...] [place] | | | | | | [address] | | | | | | | | +--------+ + + + + | 04/11/ | Appointment | Radiology | Shawn Michael | | | 2019 | | | MD [address] | | | | | [address] | | | | | | [place] [address] | | | | | | [phone] | | | | | | | | +--------+ + + + + | 04/13/ | Office | Cardiology | Shawn Michael | | | 2020 | Visit | | MD [address] | | | | | | [address] | | | | | | [place] [address] | | | | | | [phone] | | | | | | | [...]
--- OUTSIDE RECORDS SUMMARY | ~2020-03-14 | XMS | Encounter Summary ---
Demographics + + + | Address | [address] | | | [place] [address] | + + + | Home Phone [...] Team Providers + +------+ + | Care Cleaning Supervisor Name | Role | Phone | + +------+ + | Candido Link | PCP | | | MD | | | + +------+ + Reason for Visit +--------+ + | Reason | Comments | +--------+ + | Other | | +--------+ + Encounter Details +--------+ + + + + | Date | Type | Department | Care Team | Description | +--------+ + + + + | 09/13/ | Telephone | [facility] | Nikolay, | Other | | 2019 | | MEDICINE [address] [place] [address] | MD Candido | | | | | [facility] | [address] [place] [address] | | | | | [place] [address] | [place] [address] | | | | | [phone] | [phone] | | | | | | | [...] | | 2019 | Visit | | 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
--- OUTSIDE RECORDS SUMMARY | ~2020-03-14 | XMS | Encounter Summary ---
Demographics + + + | Address | [address] | | | [place] [address] | + + + | Home Phone | | + + + | Preferred Language | Unknown | + + + | Marital Status | | + + + | Yarsani Affiliation | Unknown | + + + | Race | Unknown | + + + | Ethnic Group | Unknown | + + + Author + + + | Author | [facility] | | | and [place] | + + + | Organization | [facility] | | [...] Team Providers + +------+ + | Care Robot Designer Name | Role | Phone | + +------+ + | Candido Link | PCP | | | MD | | | + +------+ + Reason for Visit + + + | Reason | Comments | + + + | TCM - Hosp FU | influenza A | + + + Encounter Details +--------+---------+ + + + | Date | Type | Department | Care Team | Description | +--------+---------+ + + + | 11/30/ | Office | [facility] | Yana-Lani, | Influenza A (Primary | | 2019 | Visit | MEDICINE [address] | MD Candido | Dx); COPD | | | | [facility] | [address] [place] [address] | exacerbation ([facility]); | | | | [place] [address] | [place] [address] | S/p TAVR | | | | [phone] | [phone] | (transcatheter | | | | | | aortic valve | | | | | | replacement), | | | | | | bioprosthetic; Other | | | | | | specified | | | | | | hypotension; | | | | | | Physical | | | | | | deconditioning; | | | | | | Generalized | | | | | | osteoarthritis; Long | | | | | | term prescription | | | | | | opiate use; | | | | | | Productive cough | +--------+---------+ + + + Social History [...] + + + | Blood Pressure | 82/40 | 11/30/2019 10:10 AM | | | | | PST | | + + + + + | Pulse | 100 | 11/30/2019 10:10 AM | | | | | PST | | + + + + + | Temperature | 37.3 C (99.2 F) | 11/30/2019 10:10 AM | | | | | PST | | + + + + + | Respiratory Rate | 28 | 11/30/2019 10:10 AM | | | | | PST | | + + + + + | Oxygen Saturation | 94% | 11/30/2019 10:10 AM | | | | | PST | | + + + + + | Inhaled Oxygen | - | - | | | Concentration | | | | + + + + + | Weight | 53.1 kg (117 lb 1 | 11/30/2019 10:10 AM | | | | oz) | PST | | + + + + + | Height | - | - | | + + + + + | Body Mass Index | 21.41 | 11/25/2019 11:07 AM | | | | | PST | | + + + + + documented in this encounter Progress Notes Candido Link MD - 11/30/2019 10:00 AM PSTFormatting of this note might be d ifferent from the original. CHIEF COMPLAINT Chief Complaint Patient presents with TCM - Hosp FU influenza A HPI Ángela Crowley is a 89 y.o. y/o female who presents today for a transitional care visi t. She was admitted with influenza and COPD exacerbation earlier this month and was [facility] November 24. She was treated with Tamiflu and after that with antibiotics for bronch itis/pneumonia. Hospital has taken her off the Buspar as it was not working enough. Per son she has been ea ting well. Per son her urine is benitez, but she is clearing up from the virus. There is still some persistent cough, flu like symptoms have resolved. Antibiotics have fin ished, and tapering off from prednisone. Per son pt is keeping up with the diuretics, per son her voice is crackly when she talks. BP is low today, but she is not lethargic, she is responsive. She responds to our questions . Per son he will take her to the ER today. Blood pressure today is lower than usual with a systolic in the low 80s. Patient reports feeling tired and dizzy. Also has a low-grade fe kirby today. No diarrhea. Has been trying to keep the fluid intake going for at least 4 glas ses of water a day. Needs a refill for Hydrocodone on 12/10/2019. BACKGROUND Admission Date: 11/18/19 Discharge Date: 11/24/19 Discharge Disposition: Home with Home Health Principle Discharge Diagnosis: Influenza A=last dose tamiflu11/24 (7 day course during hospitalization) COPD exacerbation =Is on 3L NC at baseline. Is on chronic prednisone 10mg daily at home . Currently at baseline oxygen requirement, no wheezing on exam. procalc negative, no sign o f pneumonia currently -continue prednisone 40mg Daily for1 more day(last 40mg dose 11/25), then 20mg daily for 4 days, followed by 10mg daily maintenance dosing. -continueaugmentin x3 days . Fluid overload with history of CHFpEF #paroxysmal Afib BNP elevated and is now downtrending Continuedlasix IV 20mg BID while inpatient,continuedlasix 20mg PO BID and daily weigh ts at home. Strict I/Os, daily weights, fluid restrict -continue aspirin/statin -Continue metoprolol 25mg HS. Is also on coreg 6.25mg BID, will continue -not on current anticoagulant due to anemia, will follow up outpatient with cardiology -monitor telemetry UTI on admission, asymptomatic=Asymptomatic however urine cultures growing ecoli and entero coccus faecalis pansensitive. Given leukocytosis and family concern will treat. -will cover withaugmentinfor total of 5 days to take continue course as outpatient Discharging Physician: Chace Higuera MD ASSESSMENT & PLAN 1. Influenza A -This has resolved. 2. COPD exacerbation (HCC) - benzonatate (TESSALON) 100 mg capsule; Take 1 capsule by mouth 3 times daily as needed fo r Cough. Dispense: 21 capsule; Refill: 0 3. S/p TAVR (transcatheter aortic valve replacement), bioprosthetic 4. Other specified hypotension -Her son states that he is worried about her pressure being low and having low-grade fever today and decided to take her back to the ER today. I explained to him that they may not ad destiny her but he feels it safer for her to do that. 5. Physical deconditioning 6. Generalized osteoarthritis - HYDROcodone-acetaminophen (NORCO) 7.5-325 mg per tablet; Take 1 tablet by mouth every 6 h ours as needed for Pain. Dispense: 120 tablet; Refill: 0 7. jail prescription opiate use - HYDROcodone-acetaminophen (NORCO) 7.5-325 mg per tablet; Take 1 tablet by mouth every 6 h ours as needed for Pain. Dispense: 120 tablet; Refill: 0 8. Productive cough - Gram Stain, reflex Sputum Culture; Future RELEVANT LABS WBC Date Value Ref Range Status 11/24/2019 12.0 (H) 4.0 - 11.0 K/uL Final 11/23/2019 10.3 4.0 - 11.0 K/uL Final RBC Date Value Ref Range Status 11/24/2019 2.93 (L) 3.70 - 5.20 M/uL Final 11/23/2019 2.84 (L) 3.70 - 5.20 M/uL Final Hemoglobin Date Value Ref Range Status 11/24/2019 8.8 (L) 11.5 - 16.0 g/dL Final 11/23/2019 8.6 (L) 11.5 - 16.0 g/dL Final Hematocrit Date Value Ref Range Status 11/24/2019 28.7 (L) 34.0 - 47.0 % Final 11/23/2019 28.2 (L) 34.0 - 47.0 % Final MCV Date Value Ref Range Status 11/24/2019 98.0 83.0 - 101.0 fL Final 11/23/2019 99.3 83.0 - 101.0 fL Final RDW-SD Date Value Ref Range Status 11/24/2019 55.2 (H) 35.1 - 46.3 fL Final 11/23/2019 55.8 (H) 35.1 - 46.3 fL Final Platelet Count Date Value Ref Range Status 11/24/2019 171 140 - 440 K/uL Final 11/23/2019 136 (L) 140 - 440 K/uL Final Na Date Value Ref Range Status 11/24/2019 143 136 - 145 mmol/L Final 11/23/2019 140 136 - 145 mmol/L Final K Date Value Ref Range Status 11/24/2019 3.5 3.4 - 5.1 mmol/L Final 11/23/2019 3.4 3.4 - 5.1 mmol/L Final Chloride, POC Date Value Ref Range Status 05/31/2019 109 98 - 109 mEq/L Final Cl Date Value Ref Range Status 11/24/2019 100 98 - 107 mmol/L Final 11/23/2019 101 98 - 107 mmol/L Final CO2 Date Value Ref Range Status 11/24/2019 38 (H) 20 - 31 mmol/L Final 11/23/2019 36 (H) 20 - 31 mmol/L Final Anion Gap Date Value Ref Range Status 11/24/2019 5 3 - 16 mmol/L Final 11/23/2019 3 3 - 16 mmol/L Final Glucose Date Value Ref Range Status 11/24/2019 85 60 - 106 mg/dL Final 11/23/2019 77 60 - 106 mg/dL Final BUN Date Value Ref Range Status 11/24/2019 17 9 - 23 mg/dL Final 11/23/2019 17 9 - 23 mg/dL Final Creatinine Date Value Ref Range Status 11/24/2019 0.51 (L) 0.55 - 1.02 mg/dL Final 11/23/2019 0.48 (L) 0.55 - 1.02 mg/dL Final Creatinine, POC Date Value Ref Range Status 05/31/2019 1.0 0.6 - 1.3 mg/dL Final Calcium Date Value Ref Range Status 11/24/2019 8.4 (L) 8.7 - 10.4 mg/dL Final 11/23/2019 8.3 (L) 8.7 - 10.4 mg/dL Final Magnesium Date Value Ref Range Status 11/24/2019 1.9 1.6 - 2.6 mg/dL Final 11/19/2019 2.1 1.6 - 2.6 mg/dL Final Albumin Date Value Ref Range Status 11/22/2019 3.3 3.2 - 4.8 g/dL Final 11/18/2019 3.1 (L) 3.2 - 4.8 g/dL Final Albumin/Globulin Ratio Date Value Ref Range Status 11/22/2019 1.5 0.8 - 1.9 Final 11/18/2019 1.5 0.8 - 1.9 Final Globulin Date Value Ref Range Status 11/22/2019 2.2 2.1 - 3.8 g/dL Final 11/18/2019 2.1 2.1 - 3.8 g/dL Final Alkaline Phosphatase Date Value Ref Range Status 11/22/2019 126 (H) 46 - 116 U/L Final 11/18/2019 108 46 - 116 U/L Final ALT Date Value Ref Range Status 11/22/2019 44 10 - 49 U/L Final 11/18/2019 12 10 - 49 U/L Final AST Date Value Ref Range Status 11/22/2019 66 (H) 0 - 34 U/L Final 11/18/2019 18 0 - 34 U/L Final Bilirubin Total Date Value Ref Range Status 11/22/2019 0.4 0.3 - 1.2 mg/dL Final 11/18/2019 0.3 0.3 - 1.2 mg/dL Final REVIEW [...] Dysuria, No Urinary Frequency, No Hematuria. Musculoskeletal: No Arthralgias, No Myalgias. Skin: No Rashes, No Skin Lesions Neuro: No Weakness, No Numbness, No Headache. Psych: No Anxiety/Panic, No Depression. Heme/Lymph: No Bruising, No Bleeding. Endocrine: No Polyuria, No Polydipsia, No Temperature Intolerance. PHYSICAL EXAM VITAL SIGNS: BP (!) 82/40 | Pulse 100 | Temp 37.3 C (99.2 F) (Temporal) | Resp 28 | Wt 53.1 kg (117 lb 1 oz) | SpO2 94% | BMI 21.41 kg/m Constitutional: Thin, No acute distress, Pleasant female. HENT: Normocephalic, Atraumatic, Bilateral external ears normal, Oropharynx with no erythma , No oral exudates, Nose normal. Eyes: PERRLA, EOMI, Conjunctiva normal, No discharge. Neck: Normal range of motion, No tenderness, Supple. Lymphatic: No lymphadenopathy noted. Cardiovascular: Regular rate & rhythm, No murmurs, No rubs, No gallops. No lower extremitie s edema. Thorax & Lungs: Normal chest, No respiratory distress, No wheezing, residual crackles in th e lung bases especially on the left. Skin: Warm, No erythema, No rash. Musculoskeletal: Decreased range of motion in lower back and most major joints of her limbs . Neurologic: Alert & oriented x 3, No focal deficits noted. Psychiatric: Affect normal, Judgment normal, Mood normal. PAST MEDICAL HISTORY Past Medical History: Diagnosis Date Aortic stenosis COPD (chronic obstructive pulmonary disease) (HCC) Coronary artery disease Kidney stone MRSA nasal colonization 11/18/2019 Rheumatic fever Tuberculosis Venereal disease FAMILY HISTORY [...] Last attempt to quit: 1969 Years since quittin.1 Smokeless tobacco: Never Used Substance and Sexual Activity Alcohol use: Never Frequency: Never SURGICAL HISTORY Past Surgical History: Procedure Laterality Date 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 CHOLECYSTECTOMY COLONOSCOPY N/A 06/11/2019 Procedure: COLONOSCOPY-Possible Flex Sig; Surgeon: Edwin Stoddard MD; Location: [facility] PROCEDURE UNIT HYSTERECTOMY NIRMAL AND BSO TONSILLECTOMY AND ADENOIDECTOMY UPPER GASTROINTESTINAL ENDOSCOPY N/A 06/07/2019 Procedure: EGD; Surgeon: Edwin Stoddard MD; Location: [facility] MEDICAL PROCEDURE UNIT UPPER GASTROINTESTINAL ENDOSCOPY N/A 08/20/2019 Procedure: EGD; Surgeon: John Girmes MD; Location: [facility] MEDICAL PROCEDURE UNIT CURRENT MEDICATIONS Current [...] Take 3 mLs by nebulization 4 times daily. aspirin 81 mg chewable tablet Take 1 tablet by mouth Daily. 30 tablet 3 atorvaSTATin (LIPITOR) 20 mg tablet Take 1 tablet by mouth every morning. 90 tablet 0 bacitracin 500 UNIT/GM ointment Apply 1 Application topically 2 times daily. To bedsore on buttocks benzonatate (TESSALON) 100 mg capsule Take 1 capsule by mouth 3 times daily as needed f or Cough. 21 capsule 0 bisacodyl (DULCOLAX) 5 mg EC tablet Take 5 mg by mouth Daily. brimonidine (ALPHAGAN) 0.2% ophthalmic solution Place 1 drop into both eyes 2 times millie ly. 12 budesonide (PULMICORT) 0.5 mg/2 mL nebulizer solution Take 2 mLs by nebulization 2 time s daily. Dx Code J44.90 180 mL 3 calcium carbonate (TUMS) 500 mg chewable tablet Chew and swallow 2 tablets nightly. carvedilol (COREG) 6.25 mg tablet Take 6.25 mg by mouth 2 times daily (with breakfast & dinner). cholecalciferol (VITAMIN D-3) 25 mcg (1,000 units) tablet Take 1,000 Units by mouth Millie ly. Cranberry 600 MG TABS Take 1 tablet [...] BY MOUTH ONCE DAILY 30 tablet 1 escitalopram (LEXAPRO) 5 MG tablet Take 5 mg by mouth Daily. famotidine (PEPCID) 40 MG tablet Take 1 tablet by mouth nightly. 90 tablet 1 ferrous sulfate 325 mg tablet Take 1 tablet by mouth daily (with breakfast). 90 tablet 3 fluticasone (FLONASE) 50 mcg/nasal spray 1 spray by Nasal route Daily as needed for All ergies. furosemide (LASIX) 20 mg tablet Take 1 tablet by mouth 2 times daily. 60 tablet 0 [START ON 12/10/2019] HYDROcodone-acetaminophen (NORCO) 7.5-325 mg per tablet Take [...] as needed for Nausea. 15 tablet 0 OXYBUTYNIN CHLORIDE ER PO Take 10 mg by mouth Daily. oxygen Inhale 3 L into the lungs continuous. ALETHEA: 99 months. 1 Container 2 pantoprazole (PROTONIX) 40 mg tablet Take 1 tablet by mouth every morning (before break fast). 90 tablet 1 polyethylene glycol (MIRALAX) packet Take 17 g by mouth Daily as needed for Constipatio n. Polyethylene Glycol 3350 POWD Take 17 g by mouth Daily as needed for Constipation. polyvinyl alcohol (LIQUITEARS) 1.4% ophthalmic solution Place 2 drops into both eyes ev janae morning. predniSONE (DELTASONE) 10 mg tablet Take 4 tablets by mouth Daily. Take 4 tablets (40mg ) on 11/25/19. Followed by 2 tablets (20mg) for 4 days 11/26, 11/27, 11/28, and 11/29. Followed b y 1 tablet (10mg) maintenance indefinitely 30 tablet 0 prochlorperazine 10 mg tablet Take 1 tablet [...] as needed for Constipation. 1 4 tablet sodium chloride (OCEAN) 0.65% nasal spray 2 sprays by Each Nare route Daily as needed f or Nasal Dryness. UNABLE TO FIND Adult Pull ups, medium size 100 each 3 No current facility-administered medications for this visit. ALLERGIES Allergies Allergen Reactions Metronidazole GI Upset Flagyl [Metronidazole] Nausea And Vomiting and GI Upset Percocet [Oxycodone] Unknown Pregabalin Unknown Lyrica Sulfa Antibiotics Unknown FOLLOW-UP Return in about 1 month (around 12/29/2019). Notes: 1. Parts of this documentwere created using [employer] speech recognition software. As a resu lt, there may be unintended word spelling errors. Every attempt was made to correct the di ctation. 2. I, Dalton Link MD, personally provided the services described in this documen tation, as scribed by CRISTINA Mazariegos, in my presence, and it is both accurate an d complete. Dalton Link MD Electronically signed by Candido Link MD at 2019 11:05 AM PSTdocumented in this encounter Plan of Treatment +--------+ + + + + | Date | Type | Specialty | Care Team | Description | +--------+ + + + + | 03/23/ | Office | Anticoagulation | García Harris, | | | 2019 | Visit | | [place] | | | | | | [place] | | | | | | [phone] | | | | | | | | +--------+ + + + + | 04/11/ | Appointment | Radiology | Shawn Michael | | | 2019 | | | MD Marcelino [address] | | | | | | [address] | | | | | | [place] [address] | | | | | | [phone] | | | | | | | | +--------+ + + + + | 04/13/ | Office | Cardiology | hSawn Michael | | | 2019 | Visit | | MD Marcelino [address] | | | | | | [address] | | | | | | [place] [address] | | | | | | [phone] | | | | | | | | +--------+ + + + + + + +--------+ + + | Name | Type | Priori | Associated Diagnoses | Order Schedule | | | | ty | | | + + +--------+ + + | Gram Stain, reflex | Microbiolog | Routin | Productive cough | 1 Occurrences | | Sputum Culture | y | e | | starting 11/30/2019 | | | | | | until 11/30/2020 | + + +--------+ + + documented as of this encounter Visit Diagnoses + + | Diagnosis | + + | Influenza A - Primary Influenza with other respiratory manifestations | + + | COPD exacerbation (HCC) Obstructive chronic bronchitis with exacerbation | + + | S/p TAVR (transcatheter aortic valve replacement), bioprosthetic | + + | Other specified hypotension | + + | Physical deconditioning Debility, unspecified | + + | Generalized osteoarthritis Generalized osteoarthrosis, unspecified site | + + | jail prescription opiate use | + + | Productive cough Cough | + + documented in this encounter [...]
--- OUTSIDE RECORDS SUMMARY | ~2020-03-14 | XMS | Encounter Summary ---
Demographics + + + | Address | [address] | | | [place] [address] | + + + | Home Phone | | + + + | Preferred Language | Unknown | + + + | Marital Status | | + + + | Jainism Affiliation | Unknown | + + + | Race | Unknown | + + + | Ethnic Group | Unknown | + + + Author + + + | Author | [facility] | | | and [place] | + + + | Organization | [facility] | | | and [...] Team Providers + +------+ + | Care Drier Take Off Tender Name | Role | Phone | [...] Description | +--------+--------+ + + + | 08/13/ | Refill | [facility] | Nikolay, | Medication Refill | | 2019 | | MEDICINE [address] | MD Candido | | | | | [facility] | [address] [place] [address] | | | | | [place] [address] | [place] [address] | | | | | [phone] | [phone] | | | | | | | [...] | 2019 | Visit | | RN GASTROENTEROLOGY [address] | | | | | | [place] | | | | | | [address] | | | | | | | | +--------+ + + + + | 04/11/ | Appointment | Radiology | Shawn Michael | | | 2019 | | | MD [address] | | | | | | [address] [place] | | | | | | [place] [address] | | | | | | [phone] | | | | | | | | +--------+ + + + + | 04/13/ | Office | Cardiology | Shawn Michael | | | 2019 | Visit | | MD [address] | | | | | | [address] [place] | | | | | | [place], [place] [address] | | | | | | [phone] | | | | | | | | +--------+ + + + + documented as of this encounter Visit Diagnoses + + | Diagnosis | + + | Generalized osteoarthritis Generalized osteoarthrosis, unspecified site | + + | intermediate prescription opiate use | + + documented in this encounter Additional Health Concerns + + + + | Infection | Noted Time | Resolved Time | + + + + | Methicillin-resistant Staphylococcus aureus | 06/08/2019 9:39 AM | | | | PDT | | + + + + documented as of this encounter"
--- OUTSIDE RECORDS SUMMARY | ~2020-03-14 | XMS | Encounter Summary ---
Demographics + + + | Address | [address] | | | [place] [address] | + + + | Home Phone | | + + + | Preferred Language | Unknown | + + + | Marital Status | | + + + | Jain Affiliation | Unknown | + + + [...] Team Providers + +------+ + | Care Data Lead Name | Role | Phone | + [...] | +--------+ + + + + | 09/30/ | Home Care | [facility] [place] | Timothy, | HH AIDE REPEAT VISIT | | 2018 | Visit | [place] [address] | Tania Garcia [facility] | | | | | [place] | | | | | | [address] | | | | | | [phone] | | | +--------+ + + + [...] | | | | | [place] [address] | | | | | | [phone] | | | | | | | | +--------+ + + + + | 04/13/ | Office | Cardiology | Shawn Michael | | | 2019 | Visit | | MD Marcelino [address] | | | | | | [place] [address] | | | | | | [place] [address] | | | | | | [phone] | | | | | | | [...] Plan + + | Visit Type - INTENSIVE CARE SPECIALIST - REPEAT VISIT | | Discipline - Home Health Aide | + + + + +--------+--------+ + + | Problem | Description | Start | Status | Goals | Interventio | | | | Date | | | ns | + + +--------+--------+ + + | HH Aide Need | INTENSIVE CARE SPECIALIST services | | | 1 goal | 3 goal | | Disciplines: | needed | | Active | linked to | interventio | | Usp, | | 019 | | scheduled/d | [...]
--- OUTSIDE RECORDS SUMMARY | ~2020-03-14 | XMS | Encounter Summary ---
Demographics + + + | Address | [address] | | | [place] [address] | + + + | Home Phone | | + + + | Preferred Language | Unknown | + + + | Marital Status | | + + + | Islam Affiliation | Unknown | + + + [...] Team Providers + +------+ + | Care Worker'S Compensation Claims Examiner Name | Role | Phone | + +------+ + | Candido Link | PCP | | | MD | | | + +------+ + Reason for Visit + + + | Reason | Comments | + + + | Paperwork | | + + + Encounter Details +--------+ + + + + | Date | Type | Department | Care Team | Description | +--------+ + + + + | 06/22/ | Telephone | [facility] | Nikolay, | Paperwork | | 2019 | | MEDICINE [address] [place] [address] | MD Candido | | | | | [facility] | [address] [place] [address] | | | | | [place] [address] | [place] [address] | | | | | [phone] | [phone] | | | | | | | [...] | +--------+ + + + + | 06/18/ | Office | Anticoagulation | García Harris, | | 2019 | Visit | | [facility] [address] | | | | | | [place] | | | | | | [address] | | | | | | | | +--------+ + + + + | 04/11/ | Appointment | Radiology | Shawn Michael | | 2019 | | | MD [address] | | | | | | [address] [place] | | | | | | [place] [address] | | | | | | [phone] | | | | | | | | +--------+ + + + + | 04/13/ | Office | Cardiology | Shawn Michael | | 2019 | Visit | | MD [address] | | | | | | [address] [place] | | | | | | [place] [address] | | | | | | [phone] | | | | | | | [...]
--- OUTSIDE RECORDS SUMMARY | ~2020-03-14 | XMS | Encounter Summary ---
Demographics + + + | Address | [address] | | | [place] [address] | + + + | Home Phone | | + + + | Preferred Language | Unknown | + + + | Marital Status | | + + + | Catholic Affiliation | Unknown | + + + | Race | Unknown | + + + | Ethnic Group | Unknown | + + + Author + + + | Author | [facility] | | | and [place] | + + + | Organization | [facility] | | | [...] Team Providers + +------+ + | Care Automobile Body Repairer Name | Role | Phone | + [...] + + + + | 06/22/ | Home Care | [facility] [place] | Wanda Barbosa, | CASE COMMUNICATION | | 2019 | Visit | [place] [address] | [place] | | | | | [place] | | | | | | [address] | | | | | | [phone] | | | +--------+ + + + [...] | | | | | [place] [address] | | | | | | [phone] | | | | | | | | +--------+ + + + + | 04/13/ | Office | Cardiology | Shawn Michael | | | 2019 | Visit | | MD Marcelino [address] | | | | | | [place] [address] | | | | | | [place] [address] | | | | | | [phone] | | | | | | | [...]
--- OUTSIDE RECORDS SUMMARY | ~2020-03-14 | XMS | Encounter Summary ---
Demographics + + + | Address | [address] | | | [place] [address] | + + + | Home Phone | | + + + | Preferred Language | Unknown | + + + | Marital Status | | + + + | Orthodoxy Affiliation | Unknown | + + + | Race | Unknown | + + + | Ethnic Group | Unknown | + + + Author + + + | Author | [facility] | | | and [place] | + + + | Organization | [facility] | | [...] Team Providers + +------+ + | Care Column Precaster Name | Role | Phone | + [...] | +--------+ + + + + | 10/15/ | Home Care | [facility] [place] | Sam Quintanilla, | PT REPEAT VISIT | | 2020 | Visit | [place] [address] | SALES DEPARTMENT SUPERVISOR [address] | | | | | [place] | [place] | | | | | [address] | [address] | | | | | [phone] | | | +--------+ + + + [...] +---------+ + + | Blood Pressure | - | - | | + +---------+ + + | Pulse | 80 | 10/15/2019 10:48 AM | | | | | PST | | + +---------+ + + | Temperature | - | - | | + +---------+ + + | Respiratory Rate | - | - | | + +---------+ + + | Oxygen Saturation | 99% | 10/15/2019 10:48 AM | on 2 lit O2 | [...] | | 2019 | Visit | | WOOD PATTERNMAKER [address] | | | | | | [place] | | | | | | [address] | | | | | | | | +--------+ + + + + | 04/11/ | Appointment | Radiology | Shawn Michael | | | 2019 | | | MD Mynor [address] | | | | | | [address] [place] | | | | | | [place] [address] | | | | | | [phone] | | | | | | | | +--------+ + + + + | 04/13/ | Office | Cardiology | Shawn Michael | | | 2019 | Visit | | MD [address] | | | | | | [address] [place] | | | | | | [place] [address] | | | | | | [phone] | | | | | | | [...] + | Pt gait training | Problem: PT | | | | | Description: | IMPAIRED GAITGoal: | Comple | | | | Evaluate and | HH PT GAIT/STAIRS | yoel | | | | instruct patient | | | | | | and/or caregiver in | | | | | | gait training using | | | | | | 4-wheeled walker no | | | | | | weight bearing | | | | | | restrictions. | | | | | + + +--------+--------+ + | PT transfer | Problem: PT | | | | | training | IMPAIRED | Comple | | | | Description: | TRANSFERSGoal: PT | yoel | | | | Evaluate and | TRANSFERS | | | | | instruct patient | | | | | | and/or caregiver in | | | | | | safe transfers using | | | | | | appropriate body | | | | | | mechanics and | | | | | | necessary equipment. | | | | | + + +--------+--------+ + | Instruct in Fall | Problem: SHARED | | | | | Prevention | FALLSGoal: FALL | Comple | | | | Description: | PREVENTION | yoel | | | | Instruct the patient | UNDERSTANDING | | | | | and/or caregiver in | | | | | | fall [...]
--- OUTSIDE RECORDS SUMMARY | ~2020-03-14 | XMS | Encounter Summary ---
Demographics + + + | Address | [address] | | | [place] [address] | + + + | Home Phone | | + + + | Preferred Language | Unknown | + + + | Marital Status | | + + + | Synagogue Affiliation | Unknown | + + + | Race | Unknown | + + + | Ethnic Group | Unknown | + + + Author + + + | Author | [facility] | | | and [place] | + + + | Organization | [facility] | | | [...] Team Providers + +------+ + | Care Marina Manager Name | Role | Phone | [...] Description | +--------+--------+ + + + | 01/25/ | Refill | [facility] [place] [facility] | Nikolay, | Medication Refill | | 2019 | | MEDICINE [address] | MD Candido | | | | | [facility] | [address] [place] [address] | | | | | [place] [address] | [place] [address] | | | | | [phone] | [phone] | | | | | | | [...] | | 2019 | Visit | | ASSISTANT SPA MANAGER [address] | | | | | | [place] | | | | | | [address] | | | | | | | | +--------+ + + + + | 04/11/ | Appointment | Radiology | Shawn Michael | | | 2019 | | | MD [address] | | | | | | [address] [place] | | | | | | [place] [address] | | | | | | [phone] | | | | | | | | +--------+ + + + + | 04/13/ | Office | Cardiology | Shawn Michael | | | 2019 | Visit | | MD [address] | | | | | | [address] [place] | | | | | | [place], [place] [address] | | | | | | [phone] | | | | | | | [...]
--- OUTSIDE RECORDS SUMMARY | ~2020-03-14 | XMS | Encounter Summary ---
Demographics + + + | Address | [address] | | | [place] [address] | + + + | Home Phone | | + + + | Preferred Language | Unknown | + + + | Marital Status | | + + + | Scientology Affiliation | Unknown | + + + | Race | Unknown | + + + | Ethnic Group | Unknown | + + + Author + + + | Author | [facility] | | | and [place] | + + + | Organization | [facility] | | [...] Providers + +------+ + | Care Senior Energy Market Coordinator Name | Role | Phone | + [...] | +--------+ + + + + | 09/06/ | Telephone | [facility] | Nikolay, | Other | | 2019 | | MEDICINE [address] [place] [address] | MD Candido | | | | | [facility] | [address] [place] [address] | | | | | [place] [address] | [place] [address] | | | | | [phone] | [phone] | | | | | | | [...] | | 2019 | Visit | | INSURANCE CLAIM APPROVER [address] | | | | | | [place] | | | | | | [address] | | | | | | | | +--------+ + + + + | 04/11/ | Appointment | Radiology | Shawn Michael | | | 2019 | | | MD [address] | | | | | | [address] [place] | | | | | | [place] [address] | | | | | | [phone] | | | | | | | | +--------+ + + + + | 04/13/ | Office | Cardiology | Shawn Michael | | 2019 | Visit | | MD [address] | | | | | | [address] [place] | | | | | | [place] [address] | | | | | | [phone] | | | | | | | [...]
--- OUTSIDE RECORDS SUMMARY | ~2020-03-14 | XMS | Encounter Summary ---
Demographics + + + | Address | [address] | | | [place] [address] | + + + | Home Phone | | + + + | Preferred Language | Unknown | + + + | Marital Status | | + + + | Confucianism Affiliation | Unknown | + + + [...] Team Providers + +------+ + | Care Gore Seamer Name | Role | Phone | + [...] + | 12/19/ | Home Care | [facility] [place] | Emily Reynolds, PT | CASE COMMUNICATION | | 2020 | Visit | [place] [address] | | | | | | ST [place] | | | | | | [address] | | | | | | [phone] | | | +--------+ + + + [...] | | | | | [place] [address] | | | | | | [phone] | | | | | | | | +--------+ + + + + | 04/13/ | Office | Cardiology | Shawn Michael | | 2019 | Visit | | MD Marcelino [address] | | | | | | [address] | | | | | | [place] [address] | | | | | | [phone] | | | | | | | [...]
--- OUTSIDE RECORDS SUMMARY | ~2020-03-14 | XMS | Encounter Summary ---
Demographics + + + | Address | [address] | | | [place] [address] | + + + | Home Phone | | + + + | Preferred Language | Unknown | + + + | Marital Status | | + + + | Druze Affiliation | Unknown | + + + | Race | Unknown | + + + | Ethnic Group | Unknown | + + + Author + + + | Author | [facility] | | | and [place] | + + + | Organization | [facility] | [...] Team Providers + +------+ + | Care Buyer Planner Name | Role | Phone | [...] | +--------+ + + + + | 09/27/ | Home Care | [facility] [place] | Raymon Waggoner, | PT REASSESSMENT | | 2019 | Visit | [place] [address] | PT [address] | (COUNT OR 30 DAY) | | | | [place] | [place] | | | | | [address] | [address] | | | | | [phone] | | | +--------+ + + + [...] [place] | | | | | | [address] | | | | | | | | +--------+ + + + + | 04/11/ | Appointment | Radiology | Shawn Michael | | 2019 | | | MD Marcelino [address] | | | | | | [address] | | | | | | [place] [address] | | | | | | [phone] | | | | | | | | +--------+ + + + + | 04/13/ | Office | Cardiology | Shawn Michael | | | 2019 | Visit | | MD Marcelino [address] | | | | | | [address] [place] | | | | | | [place] [address] | | | | | | [phone] | | | | | | | [...] + | Visit Type - PT - REASSESSMENT VISIT | | Discipline - Physical Therapy [...] | | STRENGTH | | 08/31/ | Resolv | linked to | interventio | | Disciplines: | | 2019 | ed on | scheduled/d | n | | Physical Therapy | | | 09/27/ | ocumented | scheduled/d | | | | | 2019 | interventio | ocumented | | | [...] HH PT IMPAIRED | | No | Inclimatewinter | | Description: The | GAIT | Unable | | weather is hindering | | patient will | | to | | outside activity and | | ambulate 500+ feet | | meet, | | home is too small to | | using 4-wheeled | | plan | | adequately addreess | | walker with | | of | | distance goals. Goal: | | supervision. | | care | | Patient will tolerate | | OUTCOMES: The | | revise | | marching in [lave x 2 | | patient will be able | | d | | minutes w/o rest for | | to safely ambulate | | | | improved stamina with | | to/from community | | | | dynamic challenges. NEW | | appointments. | | | | | + + +--------+-------+ + | HH PT STRENGTH | HH PT IMPAIRED | Met | Yes | | | Description: | STRENGTH | [...] HH PT IMPAIRED | | No | Patient does not stay | | Description: The | TRANSFERS | Ongoin | | focused with tasks and | | patient will perform | | g, | | continues to require | | independent | | progre | | reminders and cues for | | transfers for all | | ssing | | technique. Transfer | | household surfaces | | | | on/off bed are going | | using rolling | | | | well and w/o assistance. | | walker.. Outcomes: | | | | Bilateral knee | | The patient will | | | | discomfort challenges | | reach maximal | | | | transfers from lower | | independence and | | | | seating. | | safety with | | | [...] | Problem: HH PT | | | Gait training with | | Description: | IMPAIRED GAITGoal: | | | patient ambulating | | Evaluate and | HH PT GAIT/STAIRS | | | living room <> bed room, | | instruct patient | | | | 30 feet each wau using | | and/or caregiver in | | | | 4WW with cues for | | gait training using | | | | upright posture and | | 4-wheeled walker no | | | | awareness of her O2 line | | weight bearing | | | | when initiating walk. | | restrictions. | | | | Cues to increase stride | | | | | | and [place] ann improved | | | | | | llateral support/ | | | | | | balance with dynamic | | | | | | challenges. | + + +--------+--------+ + | PT therapeutic | Problem: PT | | | Instructed patient and | | exercise | IMPAIRED | | | son (caregiver) in | | Description: | STRENGTHGoal: PT | | | supine bilateral AP"s, | | Evaluate and | STRENGTH | | | ankle circles, SLR's and | | instruct the patient | | | | bridging with pt | | and/or caregiver | | | | tolerating 5 reps each; | | and provide home | | | | sitting at EOB with | | exercise program to | | | | bilateral LAQ's 10 reps. | | restore maximal | | | | Patient performed 3 | | functional strength. | | | | reps of bilateral SLR in | | | | | | under 5 seconds. GOAL | | | | | | MET Standing at sink | | | | | | with heel raises, squats | | | | | | and bilateral hip abd 5 | | | | | | trps each. | + + +--------+--------+ + | PT transfer | Problem: PT | | | Transfer training sit | | training | IMPAIRED | | | <> stand from chair with | | Description: | TRANSFERSGoal: PT | | | cues to scoot to edge | | Evaluate and | TRANSFERS | | | of seat and hand | | instruct patient | | | | placement on armrests. | | and/or caregiver in | | | | Encouraged forwad trunk | | safe transfers using | | | | flexion for improved COG | | appropriate body | | | | prior to initiating | | mechanics and | | | | standing. Transfer | | necessary equipment. | | | | training from seat of | | | | | | 4WW with min assist and | | | | | | cues for locking brakes | | | | | | and hand positioning on | | | | | | 4WW handles for weight | | | | | | bearing assistance with | | | | | | ascending and | | | | | | descending. | + + +--------+--------+ + | Written | Problem: SHARED | | | Educated patient and | | Information for Fall | FALLSGoal: FALL | | | son on techniques with | | Prevention | PREVENTION | | | transfer to reduce risk | | Description: | UNDERSTANDING | | | of falls. | | Provide written | | | | | | information | | | | | | regarding fall | | | | | | prevention | | | | | | strategies | | | | | + + +--------+--------+ + documented in this encounter
--- OUTSIDE RECORDS SUMMARY | ~2020-03-14 | XMS | Encounter Summary ---
Demographics + + + | Address | [address] | | | [place] [address] | + + + | Home Phone | | + + + | Preferred Language | Unknown | + + + | Marital Status | | + + + | Sabianist Affiliation | Unknown | + + + | Race | Unknown | + + + | Ethnic Group | Unknown | + + + Author + + + | Author | [facility] | | | and [place] | + + + | Organization | [facility] | | [...] Team Providers + +------+ + | Care Division Controller Name | Role | Phone | + [...] + + | 07/05/ | Telephone | [facility] | Nikolay, | Forms | | 2019 | | [address] | MD Candido | | | | | [facility] | [address] [place] [address] | | | | | [place] [address] | [place] [address] | | | | | [phone] | [phone] | | | | | | | [...] | | 2019 | Visit | | RECREATION AIDE [address] | | | | | | [place] | | | | | | [address] | | | | | | | | +--------+ + + + + | 04/11/ | Appointment | Radiology | Shawn Michael | | | 2019 | | | MD [address] | | | | | | [address] [place] | | | | | | [place] [address] | | | | | | [phone] | | | | | | | | +--------+ + + + + | 04/13/ | Office | Cardiology | Shawn Michael | | 2019 | Visit | | MD [address] | | | | | | [address] [place] | | | | | | [place] [address] | | | | | | [phone] | | | | | | | [...]
--- OUTSIDE RECORDS SUMMARY | ~2020-03-14 | XMS | Encounter Summary ---
Demographics + + + | Address | [address] | | | [place] [address] | + + + | Home Phone [...] Team Providers + +------+ + | Care Travel Nurse Name | Role | Phone | + +------+ + | Candido Link | PCP | | | MD | | | + +------+ + Reason for Visit + + + | Reason | Comments | + + + | Medication | pain medication | | Management | | + + + | Chest Pain | | + + + Encounter Details +--------+ + + + + | Date | Type | Department | Care Team | Description | +--------+ + + + + | 08/19/ | Telephone | [facility] | Nikolay, | Medication | | 2019 | | MEDICINE [address] | MD Candido | Management (pain | | | | [address] [place] | [address] [place] | medication); Chest | | | | [place] [address] | [place] [address] | Pain | | | | [phone] | [phone] | | | | | | | [...] | | 2019 | Visit | | FIBERGLASS FABRICATOR [address] | | | | | | [place] | | | | | | [address] | | | | | | | | +--------+ + + + + | 04/11/ | Appointment | Radiology | Shawn Michael | | | 2019 | | | MD [address] | | | | | | [address] [place] | | | | | | [place], [place] [address] | | | | | | [phone] | | | | | | | | +--------+ + + + + | 04/13/ | Office | Cardiology | Shawn Michael | | | 2019 | Visit | | MD [address] | | | | | | [address] [place] | | | | | | [place] [address] | | | | | | [phone] | | | | | | | [...]
--- OUTSIDE RECORDS SUMMARY | ~2020-03-14 | XMS | Encounter Summary ---
Demographics + + + | Address | [address] | | | [place] [address] | + + + | Home Phone | | + + + | Preferred Language | Unknown | + + + | Marital Status | | + + + | Restorationist Affiliation | Unknown | + + + | Race | Unknown | + + + | Ethnic Group | Unknown | + + + Author + + + | Author | [facility] | | | and [place] | + + + | Organization | [facility] | | | [...] Team Providers + +------+ + | Care Lard Refiner Name | Role | Phone | + [...] + + | 03/03/ | Emergency | [facility] | Pj, | Fall, initial | | 2019 | | [facility] | MD Marcel [address] | encounter (Primary | | | | CENTER [address] | [address] [place] [address] | Dx); Contusion of | | | | [place], [place] | [place] [address] | forehead, initial | | | | [address] | [phone] | encounter; Multiple | | | | [phone] | | skin tears; | | | [...] wit Dr. Ruiz. Thank you for visiting [facility] Emergency Department. Please follow up with [...] | | | | type ([facility]) | | | | | | + [...] 0 | 02/24/20 | | | (MYCOSTATIN) [id number] | | | | 20 | | [...] | | 0 | | | | ([facility]) 0.65% nasal | Nare route. two [...] son would like to speak with Dr plastic straightening roll operator who can explain why there is a delay in discharge. Dr. Oliva, RN Yahir, and Economics Instructor Miguel Ángel went out to update the son. documented in this encounter Plan of Treatment +--------+ + + + + | Date | Type | Specialty | Care Team | Description | +--------+ + + + + | 03/23/ | Office | Anticoagulation | García Harris, | | 2019 | Visit | | BAND NAILER [address] | | | | | | [place] | | | | | | [address] | | | | | | | | +--------+ + + + + | 04/11/ | Appointment | Radiology | Shawn Michael | | | 2019 | | | MD [address] | | | | | | [address] [place] | | | | | | [place] [address] | | | | | | [phone] | | | | | | | | +--------+ + + + + | 04/13/ | Office | Cardiology | Shawn Michael | | | 2019 | Visit | | MD [address] | | | | | | [address] [place] | | | | | | [place] [address] | | | | | | [phone] | | | | | | | [...] method in use as of | | [facility] | | | | December 02, 2018. [...] [address] | [place] | [phone] | | [facility] | | [address] | | | - LABORATORY | | [...] 21 | 9 - 23 mg/dL | [facility] | | | | | | [facility] | | | | | | MEDICAL | | | | | | CENTER - | | | | | | LABORATORY | | + + + + + + | Creatinine | 0.80 | 0.55 - 1.02 | [facility] | | | | | mg/dL [...] mL/min/1.73m2 | [facility] | | | [place] | RATE,ESTIMATED | | MEDICAL | | | | mL/min/1.26t5Fgbw than | | CENTER - | | [...] [address] | [place] | [phone] | | [facility] | | [address] | | | - LABORATORY | | [...] [address] | [place] | [phone] | | [facility] | | [address] | | | - LABORATORY | | [...] | | Dictated and Signed by: Patrick Rordiguez MD | | Electronically signed: 03/03/2020 10:24 [...]
--- OUTSIDE RECORDS SUMMARY | ~2020-03-14 | XMS | Encounter Summary ---
Demographics + + + | Address | [address] | | | [place] [address] | + + + | Home Phone [...] + + | Author | [facility] | | | and [place] | + + + | Organization | [facility] | | | and [...] Team Providers + +------+ + | Care Crepe Laminator Operator Name | Role | Phone | [...] [place] | | | | | | [address] | | | | | | [phone] | | | +--------+ + + + [...] [place] | | | | | | [id number] | | | | | | | | +--------+ + + + + | 04/11/ | Appointment | Radiology | Shawn Michael | | 2019 | | | MD Marcelino [address] | | | | | | [address] | | | | | | [place] [address] | | | | | | [phone] | | | | | | | | +--------+ + + + + | 04/13/ | Office | Cardiology | Julieta Michaelr | | | 2019 | Visit | | MD Marcelino [address] | | | | | | [address] [place] | | | | | | [place] [address] | | | | | | [phone] | | | | | | | [...] Plan + + | Visit Type - ASSEMBLY MANAGER - REPEAT VISIT | | Discipline - Home Health Aide | + + + + +--------+--------+ + + | Problem | Description | Start | Status | Goals | Interventio | | | | Date | | | ns | + + +--------+--------+ + + | HH Aide Need | ASSEMBLY MANAGER services | | | 1 goal | 3 goal | | Disciplines: | needed | | Active | linked to | interventio | | Assisted, | | 019 | | scheduled/d | [...]
--- OUTSIDE RECORDS SUMMARY | ~2020-03-14 | XMS | Encounter Summary ---
Demographics + + + | Address | [address] | | | [place] [address] | + + + | Home Phone | | + + + | Preferred Language | Unknown | + + + | Marital Status | | + + + | Anabaptism Affiliation | Unknown | + + + | Race | Unknown | + + + | Ethnic Group | Unknown | + + + Author + + + | Author | [facility] | | | [...] Team Providers + +------+ + | Care Mark Up Designer Name | Role | Phone | [...] + | 02/27/ | Home Care | [facility] [place] | Linda Laughlin, | SN TRSFR W/OUT D/C | | 2019 | Visit | [place] [address] | RN | ([place]) | | | | ST [place] | | | | | | [address] | | | | | | [phone] | | | +--------+ + + + [...] 2019 | Visit | | PRABHJOT UGALDE | | | | | | [place] | | | | | | [id number] | | | | | | | | +--------+ + + + + | 04/11/ | Appointment | Radiology | Shawn Michael | | 2019 | | | MD Marcelino [address] | | | | | | [address] | | | | | | [place] [address] | | | | | | [phone] | | | | | | | | +--------+ + + + + | 04/13/ | Office | Cardiology | Maxood, Shawn | | | 2019 | Visit | | MD Marcelino [address] | | | | | | [address] [place] | | | | | | [place] [address] | | | | | | [phone] | | | | | | | [...] | Visit Type - SN - OASIS TRANSFER W/OUT D/C | | Discipline - Usp | + + + + +--------+--------+-------+ + | Problem | Description | Start | Status | Goals | Interventio | | | | Date | | | ns | + + +--------+--------+-------+ + | | 3L O2 NC. | | | - | 1 problem | | Oxygenation/Respirat | | | Active | | | | ory Function | | 020 | | | interventio | | Disciplines: | | | | | n | | Usp | | | | | scheduled/d | [...] | | Active | | | | Usp | | 020 | | | interventio [...] | | respiratory status | Oxygenation/Respirat | Schedu | | | | Description: | ory Function | led | | | | Instruct pt/CG safe [...] Wound | | | | | Description: | Management | Schedu | | | | Cleanse wound with | | led | | | | wound cleanser, or | | | | | | NS. Apply skin prep | | | | | | to jennifer wound. | | | | | | Apply santyl | | | | | | ointment to yellow | | | | | | slough only, and | | | | | | apply silver AG to | | | | | | wound bed and cover | | | | | | with foam adhesive. | | | | | | Family to change | | | | | | daily. RN to change | | | | | | or assess CG | | | | | | changing twice | | | | | | weekly. | | | | | + + +--------+--------+ + documented in this encounter"
--- OUTSIDE RECORDS SUMMARY | ~2020-03-14 | XMS | Encounter Summary ---
Demographics + + + | Address | [address] | | | [place] [address] | + + + | Home Phone | | + + + | Preferred Language | Unknown | + + + | Marital Status | | + + + | Mosque Affiliation | Unknown | + + + [...] Providers + +------+ + | Care Industrial Technologist Name | Role | Phone | + [...] + | 12/16/ | Home Care | [facility] | Nivia Olivarez CNA | HH AIDE REPEAT VISIT | | 2019 | Visit | [place] [address] | | | | | | [place] | | | | | | [address] | | | | | | [phone] | | | +--------+ + + + [...] [place] | | | | | | [id number] | | | | | | | | +--------+ + + + + | 04/11/ | Appointment | Radiology | Shawn Michael | | 2019 | | | MD Marcelino [address] | | | | | | [address] | | | | | | [place] [address] | | | | | | [phone] | | | | | | | | +--------+ + + + + | 04/13/ | Office | Cardiology | Julieta Michaelr | | | 2019 | Visit | | MD Marcelino [address] | | | | | | [address] [place] | | | | | | [place] [address] | | | | | | [phone] | | | | | | | [...] Plan + + | Visit Type - INFORMATION TECHNOLOGY COORDINATOR - REPEAT VISIT | | Discipline - Home Health Aide | + + + + +--------+--------+ + + | Problem | Description | Start | Status | Goals | Interventio | | | | Date | | | ns | + + +--------+--------+ + + | HH Aide Need | | | | 1 goal | 1 problem | | Disciplines: Home | | | Active | linked to | | | Health Aide | | 020 | | scheduled/d | interventio | | | | | | ocumented | n | | | | | | interventio | scheduled/d | | | | | | n | ocumented | | | | | | | in this | | | | | | | visit | + + +--------+--------+ + + | HH Aide Need | INFORMATION TECHNOLOGY COORDINATOR services | | | 1 goal | 1 goal | | Disciplines: Home | needed | 12/12/19 | Active | linked to | interventio | | Health Aide | | 20 | | scheduled/d | n | | | | | | ocumented | scheduled/d | | | | | | interventio | ocumented | | | | | | n | in this | | | | | | | visit | + + +--------+--------+ + + | Knowledge Deficit, | | | | 1 goal | | | Education, | | | Active | linked to | | | Discharge Plan | | 020 | | scheduled/d | | | Disciplines: | | | | ocumented | | | Assisted, | | | | interventio | | | Physical Therapy, | | | | n | | | Home Health Aide, | | | | | | | Steel Manager, | | | | | | | Respiratory Therapy | | | | | | + + +--------+--------+ + + + [...] | progre | | | | Description: Home | | ssing | | | | radha Aid personal | | | | | | care, living | | | | | | environment and ADL. | | | | | | The patient will | | | | | | receive comfortable | | | | | | personal care. The | | | | | | pt will have safe | | | | | | and clean living | | | | | | environment. | | | | | + + [...] | | + + +--------+-------+ + | Identify discharge | Knowledge Deficit, | | No | | | needs Description: | Education, | Ongoin | | | | Pt will verbalize | Discharge Plan | g, | | | | understanding of | | progre | | | | disease process by | | ssing | | | | end of episode of | | | | | | care. | | | | | + + +--------+-------+ + + + +--------+--------+ + | Intervention | Associated | Status | Varian | Visit Notes | | | Problem/Goal | | ce | | + + +--------+--------+ + | Aide personal care | Problem: HH Aide | | | Completed the | | Description: | Need | Comple | | following personal care | | Home health Aid will | | yoel | | pre the plan of care: | | provide assistance | | | | shower: shampoo: | | with personal care | | | | pericare: skin/back | | with safe manor. | | | | care: brush/comb hair | | | | | | dressing: | + + +--------+--------+ + | Aide personal care | Problem: HH Aide | | | Completed the | | Description: | NeedGoal: Home | Comple | | following personal care | | Assist patient with | Health Aide personal | yoel | | pre the plan of care: | | personal care: | care, living | | | shower: shampoo: | | shower: as tolerated | environment and ADLs | | | pericare: skin/back | | by pt, if not | | | | care: brush/comb hair | | shower, sponge bath | | | | dressing: | | shampoo: as | | | | | | requested by pt. | | | | | + + +--------+--------+ + documented in this encounter"
--- OUTSIDE RECORDS SUMMARY | ~2020-03-14 | XMS | Encounter Summary ---
Demographics + + + | Address | [address] | | | [place] [address] | + + + | Home Phone | | + + + | Preferred Language | Unknown | + + + | Marital Status | | + + + | Uatsdin Affiliation | Unknown | + + + | Race | Unknown | + + + | Ethnic Group | Unknown | + + + Author + + + | Author | [facility] | [...] Team Providers + +------+ + | Care Regrinder Operator Name | Role | Phone | + +------+ + | Candido Link | PCP | | | MD | | | + +------+ + Reason for Visit + + + | Reason | Comments | + + + | Medication Related | | + + + Encounter Details +--------+ + + + + | Date | Type | Department | Care Team | Description | +--------+ + + + + | 01/03/ | Telephone | [facility] | Nikolay, | Medication Related | | 2019 | | MEDICINE [address] [place] [address] | MD Candido | | | | | [facility] | [address] [place] [address] | | | | | [place] [address] | [place] [address] | | | | | [phone] | [phone] | | | | | | | [...] | | 2019 | Visit | | [employer] [address] | | | | | | [place] | | | | | | [address] | | | | | | | | +--------+ + + + + | 04/11/ | Appointment | Radiology | Shawn Michael | | | 2019 | | | MD [address] | | | | | | [address] [place] | | | | | | [place] [address] | | | | | | [phone] | | | | | | | | +--------+ + + + + | 04/13/ | Office | Cardiology | Shawn Michael | | | 2019 | Visit | | MD [address] | | | | | | [address] [place] | | | | | | [place] [address] | | | | | | [phone] | | | | | | | | +--------+ + + + + documented as of this encounter Visit Diagnoses + + | Diagnosis | + + | Generalized osteoarthritis Generalized osteoarthrosis, unspecified site | + + | automatic drill operator prescription opiate use | + + documented in this encounter Additional Health Concerns + + + + | Infection | Noted Time | Resolved Time | + + + + | Methicillin-resistant Staphylococcus aureus | 06/08/2019 9:39 AM | | | | PDT | | + + + + documented as of this encounter"
--- OUTSIDE RECORDS SUMMARY | ~2020-03-14 | XMS | Encounter Summary ---
Demographics + + + | Address | [address] | | | [place] [address] | + + + | Home Phone [...] + + | Author | [facility] | | | and [place] | + + + | Organization | [facility] | | [...] Team Providers + +------+ + | Care Brick Kiln Worker Name | Role | Phone | + [...] + | 12/22/ | Home Care | [facility] [place] | Nivia Olivarez CNA | CASE COMMUNICATION | | 2020 | Visit | [place] [address] | | | | | | [place] | | | | | | [address] | | | | | | [phone] | | | +--------+ + + + [...] [place] | | | | | | [id number] | | | | | | | | +--------+ + + + + | 04/11/ | Appointment | Radiology | Shawn Michael | | | 2019 | | | MD Marcelino [address] | | | | | | [address] | | | | | | [place] [address] | | | | | | [phone] | | | | | | | | +--------+ + + + + | 04/13/ | Office | Cardiology | Shawn Michael | | | 2020 | Visit | | MD Marcelino [address] | | | | | | [address] | | | | | | [place] [address] | | | | | | [phone] | | | | | | | [...]
--- OUTSIDE RECORDS SUMMARY | ~2020-03-14 | XMS | Encounter Summary ---
Demographics + + + | Address | [address] | | | [place] [address] | + + + | Home Phone | | + + + | Preferred Language | Unknown | + + + | Marital Status | | + + + | Holiness Affiliation | Unknown | + + + | Race | Unknown | + + + | Ethnic Group | Unknown | + + + Author + + + | Author | [facility] | | | and [place] | + + + | Organization | [facility] | | | [...] Team Providers + +------+ + | Care Highway Engineering Technician Name | Role | Phone | + [...] | 10/04/ | Home Care | [facility] [place] | Bernardo Souza | OT REPEAT VISIT | | 2018 | Visit | [place] [address] | [place], [place] | | | | | [place] | | | | | | [address] | | | | | | [phone] | | | +--------+ + + + [...] + + + | Blood Pressure | 108/54 | 10/04/2019 3:00 PM | | | | | PST | | + + + + + | Pulse | 89 | 10/04/2019 3:00 PM | | | | | PST | | + + + + + | Temperature | 36.5 C (97.7 F) | 10/04/2019 3:00 PM | | | | | PST | | + + + + + | Respiratory Rate | - | - | | + + + + + | Oxygen Saturation | 96% | 10/04/2019 3:00 PM | | | | | PST [...] | | | | | [place] [address] | | | | | | [phone] | | | | | | | | +--------+ + + + + | 04/13/ | Office | Cardiology | Shawn Michael | | | 2019 | Visit | | MD Marcelino [address] | | | | | | [address] [place] | | | | | | [place] [address] | | | | | | [phone] | | | | | | | [...] + + +--------+--------+ + + | HH OT ADL DEFICITS | ADL deficits | | | 1 goal | 1 goal | | Disciplines: | | 09/15/ | Active | linked to | interventio | | Occupational Therapy | | 2019 | | scheduled/d [...] + + +--------+-------+ + | HH OT ADL | HH OT ADL DEFICITS | | No | | | Description: By | | Ongoin | | | | 10/12/2019: The | | g, | | | | patient demonstrates | | progre | | | | bathing/hygiene | | ssing | | | | ability with maximal | | | | | | assistance using | | | | | | handheld shower | | | | | | nozzle and shower | | | | | | chair. The patient | | | | | | demonstrates upper | | | | | | body dressing with | | | | | | moderate assistance | | | | | | using no assistive | | | | | | device. The patient | | | | | | demonstrates lower | | | | | | body dressing with | | | | | | moderate assistance | | | | | | using sock-aid, shoe | | | | | | horn, sales product manager and | | | | | | dressing stick. | | | | | | Outcomes: The | | | | | | patient will achieve | | | | | | maximal safety and | | | | | | independence with | | | | | | ADLs. | | | | | + + +--------+-------+ + + + +--------+--------+ + | Intervention | Associated | Status | Varian | Visit Notes | | | Problem/Goal | | ce | | + + +--------+--------+ + | ADL Training | Problem: HH OT ADL | | | Patient demonstrated | | Description: | DEFICITSGoal: HH OT | Comple | | independence with | | Occupational | ADL | yoel | | donning/doffing socks | | Therapist to visit | | | | without any adaptive | | for assessment, | | | | equipment. Patient then | | planning, | | | | trialled the sales product manager for | | teaching/training, | | | | donning pants. Patient | | and evaluation of | | | | was successful on the | | the POC related to | | | | first try and appeared | | patient's ability to | | | | to have decreased SOB | | perform ADLs due to | | | | directly following this | | decreased activity | | | | activity. | | tolerance, decreased | | | | | | BUE strength and | | | | | | endurance. | | | | | + + +--------+--------+ + documented in this encounter"
--- OUTSIDE RECORDS SUMMARY | ~2020-03-14 | XMS | Encounter Summary ---
Demographics + + + | Address | [address] | | | [place] [address] | + + + | Home Phone | | + + + | Preferred Language | Unknown | + + + | Marital Status | | + + + | Methodist Affiliation | Unknown | + + + | Race | Unknown | + + + | Ethnic Group | Unknown | + + + Author + + + | Author | [facility] | | | and [place] | + + + | Organization | [facility] | | [...] Team Providers + +------+ + | Care Tennis Player Name | Role | Phone | + [...] + + | 08/12/ | Telephone | [facility] | Nikolay, | DME | | 2019 | | MEDICINE [address] [place] [address] | MD Candido | | | | | [facility] | [address] [place] [address] | | | | | [place] [address] | [place] [address] | | | | | [phone] | [phone] | | | | | | | [...] | | 2019 | Visit | | PRODUCTION WOOD CRAFTSMAN [address] | | | | | | [place] | | | | | | [address] | | | | | | | | +--------+ + + + + | 04/11/ | Appointment | Radiology | Shawn Michael | | | 2019 | | | MD [address] | | | | | | [address] [place] | | | | | | [place] [address] | | | | | | [phone] | | | | | | | | +--------+ + + + + | 04/13/ | Office | Cardiology | Shawn Michael | | | 2019 | Visit | | MD [address] | | | | | | [address] [place] | | | | | | [place] [address] | | | | | | [phone] | | | | | | | [...]
--- OUTSIDE RECORDS SUMMARY | ~2020-03-14 | XMS | Encounter Summary ---
Demographics + + + | Address | [address] | | | [place] [address] | + + + | Home Phone | | + + + | Preferred Language | Unknown | + + + | Marital Status | | + + + | Adventist Affiliation | Unknown | + + + | Race | Unknown | + + + | Ethnic Group | Unknown | + + + Author + + + | Author | [facility] | | | and [place] | + + + | Organization | [facility] | | | [...] Team Providers + +------+ + | Care Billing Spec Name | Role | Phone | + [...] | +--------+ + + + + | 09/15/ | Home Care | [facility] | Bernardo Souza | OT SECONDARY EVAL | | 2019 | Visit | [place] [address] | [place], [place] | | | | | [place] | | | | | | [address] | | | | | | [phone] | | | +--------+ + + + [...] + + + | Blood Pressure | 110/64 | 09/15/2019 1:10 PM | | | | | PST | | + + + + + | Pulse | 85 | 09/15/2019 1:10 PM | | | | | PST | | + + + + + | Temperature | 36.1 C (97 F) | 09/15/2019 1:10 PM | | | | | PST | | + + + + + | Respiratory Rate | - | - | | + + + + + | Oxygen Saturation | 95% | 09/15/2019 1:10 PM | 3L O2 | | | | PST | [...] [place] | | | | | | [id number] | | | | | | | | +--------+ + + + + | 04/11/ | Appointment | Radiology | Shawn Michael | | | 2019 | | | MD Marcelino [address] | | | | | | [address] | | | | | | [place] [address] | | | | | | [phone] | | | | | | | | +--------+ + + + + | 04/13/ | Office | Cardiology | Shawn Michael | | | 2020 | Visit | | MD Marcelino [address] | | | | | | [address] | | | | | | [place] [address] | | | | | | [phone] | | | | | | | [...]
--- OUTSIDE RECORDS SUMMARY | ~2020-03-14 | XMS | Encounter Summary ---
Demographics + + + | Address | [address] | | | [place] [address] | + + + | Home Phone | | + + + | Preferred Language | Unknown | + + + | Marital Status | | + + + | Alevism Affiliation | Unknown | + + + | Race | Unknown | + + + | Ethnic Group | Unknown | + + + Author + + + | Author | [facility] | | | and [place] | + + + | Organization | [facility] | | [...] Team Providers + +------+ + | Care Tattoo Artist Name | Role | Phone | + [...] | +--------+ + + + + | 08/26/ | Telephone | [facility] [place] | Katy Bruner, | Referral | | 2019 | | [place] [address] | RN | | | | | [place] | | | | | | [address] | | | | | | [phone] | | | +--------+ + + + [...] 2020 | Visit | | [address] | | | | | | [place] | | | | | | [address] | | | | | | | | +--------+ + + + + | 04/11/ | Appointment | Radiology | Shawn Michael | | | 2019 | | | MD [address] | | | | | | [address] [place] | | | | | | [place] [address] | | | | | | [phone] | | | | | | | | +--------+ + + + + | 04/13/ | Office | Cardiology | Shawn Michael | | | 2019 | Visit | | MD [address] | | | | | | [address] [place] | | | | | | [place] [address] | | | | | | [phone] | | | | | | | [...]
--- OUTSIDE RECORDS SUMMARY | ~2020-03-14 | XMS | Encounter Summary ---
Demographics + + + | Address | [address] | | | [place] [address] | + + + | Home Phone | | + + + | Preferred Language | Unknown | + + + | Marital Status | | + + + | Nondenominational Affiliation | Unknown | + + + | Race | Unknown | + + + | Ethnic Group | Unknown | + + + Author + + + | Author | [facility] | | | and [place] | + + + | Organization | [facility] | | | and [...] Team Providers + +------+ + | Care Closer On Name | Role | Phone | + [...] + + + + | 10/12/ | Telephone | [facility] | Nikolay, | Medication Refill | | 2019 | | MEDICINE [address] | MD Candido | | | | | [facility] | [address] [place] [address] | | | | | [place] [address] | [place] [address] | | | | | [phone] | [phone] | | | | | | | [...] | 03/23/ | Office | Anticoagulation | Gracía Harris, | | | 2019 | Visit | | YARN CLEANER [address] | | | | | | [place] | | | | | | [address] | | | | | | | | +--------+ + + + + | 04/11/ | Appointment | Radiology | Shawn Michael | | | 2019 | | | MD [address] | | | | | | [address] [place] | | | | | | [place] [address] | | | | | | [phone] | | | | | | | | +--------+ + + + + | 04/13/ | Office | Cardiology | Shawn Michael | | | 2019 | Visit | | MD [address] | | | | | | [address] [place] | | | | | | [place] [address] | | | | | | [phone] | | | | | | | | +--------+ + + + + documented as of this encounter Visit Diagnoses + + | Diagnosis | + + | Generalized osteoarthritis Generalized osteoarthrosis, unspecified site | + + | terminal supervisor prescription opiate use | + + documented in this encounter Additional Health Concerns + + + + | Infection | Noted Time | Resolved Time | + + + + | Methicillin-resistant Staphylococcus aureus | 06/08/2019 9:39 AM | | | | PDT | | + + + + documented as of this encounter"
--- OUTSIDE RECORDS SUMMARY | ~2020-03-14 | XMS | Encounter Summary ---
Demographics + + + | Address | [address] | | | [place] [address] | + + + | Home Phone [...] Team Providers + +------+ + | Care Research Test Engine Evaluator Name | Role | Phone | + [...] [place] | | | | | | [address] | | | | | | [phone] | | | +--------+ + + + [...] [place] | | | | | | [id number] | | | | | | | | +--------+ + + + + | 04/11/ | Appointment | Radiology | Shawn Michael | | | 2019 | | | MD Marcelino [address] | | | | | | [address] | | | | | | [place] [address] | | | | | | [phone] | | | | | | | | +--------+ + + + + | 04/13/ | Office | Cardiology | Shawn Michael | | | 2020 | Visit | | MD Marcelino [address] | | | | | | [address] | | | | | | [place] [address] | | | | | | [phone] | | | | | | | [...]
--- OUTSIDE RECORDS SUMMARY | ~2020-03-14 | XMS | Encounter Summary ---
Demographics + + + | Address | [address] | | | [place] [address] | + + + | Home Phone | | + + + | Preferred Language | Unknown | + + + | Marital Status | | + + + | Presybeterian Affiliation | Unknown | + + + | Race | Unknown | + + + | Ethnic Group | Unknown | + + + Author + + + | Author | [facility] | | | and [place] | + + + | Organization | [facility] | | [...] Team Providers + +------+ + | Care Transportation Clerk Name | Role | Phone | [...] + + + + | 09/06/ | Anesthesia | [facility] ANGLIN | Yahir Hinson MD | | | 2019 | Event | [facility] | [address] | | | | | [address] | [place] | | | | | [place], [place] | [address] | | | | | [address] | | | | | | [phone] | | | +--------+ + + + + Anesthesia Record + + + + + | Procedure Name | Responsible | Anesthesia Start | Anesthesia Stop Time | | | Anesthesiologist | Time | | + + + + + | COLONOSCOPY-Possible | Yahir Hinson MD | 06/11/19 0758 | 06/11/19 08 | | Flex Sig (N/A | | | | | Rectum) | | | | + + + + + +----+---+ + + | Da | T | Event | Comment | | te | i | | | | | m | | | | | e | | | +----+---+ + + | 09 | 0 | | | | /0 | 7 | | | | 6/ | 5 | | | | 20 | 4 | | | | 19 | | | | +----+---+ + + | | 0 | An Checkout | Pre-use anesthesia machine/equipment checkout. | | | 7 | | | | | 5 | | | | | 8 | | | +----+---+ + + | | 0 | An Start | | | | 7 | Data | | | | 5 | | | | | 8 | | | +----+---+ + + | | 0 | An Start | Reassessment prior to anesthesia induction/procedure. | | | 7 | | | | | 5 | | | | | 8 | | | +----+---+ + + | | 0 | AN | Per surgeon request | | | 7 | Antibiotic | | | | 5 | declined | | | | 8 | | | +----+---+ + + | | 0 | Pre-Procedu | | | | 8 | ral Timeout | | | | 0 | Completed | | | | 1 | | | +----+---+ + + | | 0 | First | | | | 8 | Inc/Proc St | | | | 0 | | | | | 4 | | | +----+---+ + + | | 0 | an stop | | | | 8 | data | | | | 1 | | | | | 3 | | | +----+---+ + + | | 0 | An Stop | Patient handed off to recovery nurse. | | | 1 | | | | | 7 | | | +----+---+ + + +------+ | Meds | +------+ + + + | Name | Total | + + + | propofol | 40 mg | + + + | propofol | 60.26 mg | + + + | lidocaine 2% | 60 mg | + + + + + | [...] Alie Aj RN | | IV | gvbs-obq-yzztkg catheter system; | | | | | 20 gauge; 0; appears comfortable; | | | | | no longer indicated; 06/12/19; | | | | | 0545 | | | +--------+ + + + | PICC | 06/04/19; 1549; White Hub; Red | 06/04/19 1549 by Rosio | 06/12/19 1505 by | | Triple | Hub; Tomlinson Hub; Yes; | Jazz Macias RN | Alisson Tamez RN | | Lumen | Chlorhexidine/Isopropyl Alcohol; | | | | | Yes; Yes; All; Patient room; | | | | | Ux Engineer; Rosio Kim RN; | | | | [...] number (specify) | | | | | (LiveDeal power picc solo triple | | | | | lumen LOT [id number]); 5 Fr, length | | | | | (specify) (55cm picc trimmed to | | | | | 50cm threaded to 8cm yahir at skin | | | | | ajustment pull back after xray | | | | | 2cm to the 8cm yahir); | | | | | distraction, intradermal [...] | | 2019 | Visit | | FORM TAMPER [address] | | | | | | [place] | | | | | | [address] | | | | | | | | +--------+ + + + + | 04/11/ | Appointment | Radiology | Shawn Michael | | | 2019 | | | MD [address] | | | | | | [address] [place] | | | | | | [place] [address] | | | | | | [phone] | | | | | | | | +--------+ + + + + | 04/13/ | Office | Cardiology | Shawn Michael | | | 2019 | Visit | | MD [address] | | | | | | [address] [place] | | | | | | [place] [address] | | | | | | [phone] | | | | | | | | +--------+ + + + + documented as of this encounter Visit Diagnoses Not on filedocumented in this encounter Administered Medications + +--------+ +-------+------+------+ | Medication Order | MAR | Action | Dose | Rate | Site | | | Action | Date | | | | + +--------+ +-------+------+------+ | lidocaine (PF) 2% injection | Given | 06/11/20 | 60 mg | | | | PRN, Starting Fri06/11/19 at 0802, | | 19 8:02 | | | | | Anesthesia Intra-op | | AM PDT | | | | + +--------+ +-------+------+------+ +---+---+ | | | +---+---+ + +---------+ + +-------+---+ | propofol (DIPRIVAN) injection | New Bag | 06/11/20 | 120 | 40.2 | | | Intravenous, CONTINUOUS PRN, | | 19 8:02 | mcg/kg/m | mL/hr | | | Starting 06/11/19 at 0802, | | AM PDT | in | | | | Anesthesia Intra-op | | | | | | + +---------+ + +-------+---+ +---+---+ | | | +---+---+ + +-------+ +-------+---+---+ | propofol (DIPRIVAN) injection | Given | 06/11/20 | 20 mg | | | | Intravenous, PRN, Starting Fri | | 19 8:04 | | | | | 06/11/19 at 0803, Anesthesia | | AM PDT | | | | | Intra-op | | | | | | + +-------+ +-------+---+---+ +-------+ +-------+---+---+ | Given | 06/11/20 | 20 mg | | | | | 19 8:03 | | | | | | AM [...]
--- OUTSIDE RECORDS SUMMARY | ~2020-03-14 | XMS | Encounter Summary ---
Demographics + + + | Address | [address] | | | [place] [address] | + + + | Home Phone [...] Team Providers + +------+ + | Care Log Haul Chain Feeder Name | Role | Phone | + [...] | +--------+ + + + + | 07/08/ | Telephone | [facility] | Nikolay, | Referral | | 2019 | | MEDICINE [address] [place] [address] | MD Candido | | | | | [facility] | [address] [place] [address] | | | | | [place] [address] | [place] [address] | | | | | [phone] | [phone] | | | | | | | [...] | | 2019 | Visit | | CARDIAC REHABILITATION SPECIALIST [address] | | | | | | [place] | | | | | | [address] | | | | | | | | +--------+ + + + + | 04/11/ | Appointment | Radiology | Shawn Michael | | | 2019 | | | MD [address] | | | | | | [address] [place] | | | | | | [place] [address] | | | | | | [phone] | | | | | | | | +--------+ + + + + | 04/13/ | Office | Cardiology | Shawn Michael | | 2019 | Visit | | MD Marcelino [address] | | | | | | [address] [place] | | | | | | [place] [address] | | | | | | [phone] | | | | | | | [...]
--- OUTSIDE RECORDS SUMMARY | ~2020-03-14 | XMS | Encounter Summary ---
Demographics + + + | Address | [address] | | | [place] [address] | + + + | Home Phone | | + + + | Preferred Language | Unknown | + + + | Marital Status | | + + + | Anabaptist Affiliation | Unknown | + + + | Race | Unknown | + + + | Ethnic Group | Unknown | + + + Author + + + | Author | [facility] | | | and [place] | + + + | Organization | [facility] | | [...] Team Providers + +------+ + | Care Bevel Mill Operator Name | Role | Phone | [...] | +--------+ + + + + | 09/11/ | Home Care | [facility] [place] | Gabi Skinner | CASE COMMUNICATION | | 2018 | Visit | [place] [address] | | | | | [place] | | | | | | [address] | | | | | | [phone] | | | +--------+ + + + [...] | | | | | [place] [address] | | | | | | [phone] | | | | | | | | +--------+ + + + + | 04/13/ | Office | Cardiology | Shawn Michael | | | 2019 | Visit | | MD Marcelino [address] | | | | | | [address] | | | | | | [place] [address] | | | | | | [phone] | | | | | | | [...]
--- OUTSIDE RECORDS SUMMARY | ~2020-03-14 | XMS | Encounter Summary ---
Demographics + + + | Address | [address] | | | [place] [address] | + + + | Home Phone [...] Team Providers + +------+ + | Care Welfare Interviewer Name | Role | Phone | + +------+ + | Candido Link | PCP | | | MD | | | + +------+ + Reason for Visit + + + | Reason | Comments | + + + | Care Coordination | | + + + Encounter Details +--------+ + + + + | Date | Type | Department | Care Team | Description | +--------+ + + + + | 12/02/ | Telephone | [facility] | Janel, | Care Coordination | | 2020 | | MEDICINE [place] | Brittany Schulz RN | | | | | [address] | | | | | | [place] | | | | | | [address] | | | | | | [phone] | | | +--------+ + + + [...] | 03/23/ | Office | Anticoagulation | Harris, García L, | | | 2019 | Visit | | TRIALS MANAGER [address] | | | | | | [place] | | | | | | [address] | | | | | | | | +--------+ + + + + | 04/11/ | Appointment | Radiology | Shawn Michael | | 2019 | | | MD [address] | | | | | | [address] [place] | | | | | | [place] [address] | | | | | | [phone] | | | | | | | | +--------+ + + + + | 04/13/ | Office | Cardiology | Shawn Michael | | 2019 | Visit | | MD [address] | | | | | | [address] [place] | | | | | | [place] [address] | | | | | | [phone] | | | | | | | [...]
--- OUTSIDE RECORDS SUMMARY | ~2020-03-14 | XMS | Encounter Summary ---
Demographics + + + | Address | [address] | | | [place] [address] | + + + | Home Phone | | + + + | Preferred Language | Unknown | + + + | Marital Status | | + + + | Mandaen Affiliation | Unknown | + + + [...] Team Providers + +------+ + | Care Lemon Picker Name | Role | Phone | + [...] Description | +--------+--------+ + + + | 03/13/ | Refill | [facility] | Nikolay, | Medication Refill | | 2019 | | MEDICINE [address] | MD Candido | | | | | [facility] | [address] [place] [address] | | | | | [place] [address] | [place] [address] | | | | | [phone] | [phone] | | | | | | | [...] | | 2019 | Visit | | FILTER SCREEN CLEANER [address] | | | | | | [place] | | | | | | [address] | | | | | | | | +--------+ + + + + | 04/11/ | Appointment | Radiology | Shawn Michael | | | 2019 | | | MD [address] | | | | | | [address] [place] | | | | | | [place] [address] | | | | | | [phone] | | | | | | | | +--------+ + + + + | 04/13/ | Office | Cardiology | Shawn Michael | | | 2019 | Visit | | MD [address] | | | | | | [address] [place] | | | | | | [place], [place] [address] | | | | | | [phone] | | | | | | | [...]
--- OUTSIDE RECORDS SUMMARY | ~2020-03-14 | XMS | Encounter Summary ---
Demographics + + + | Address | [address] | | | [place] [address] | + + + | Home Phone | | + + + | Preferred Language | Unknown | + + + | Marital Status | | + + + | Protestant Affiliation | Unknown | + + + | Race | Unknown | + + + | Ethnic Group | Unknown | + + + Author + + + | Author | [facility] | | | and [place] | + + + | Organization | [facility] | | | [...] Team Providers + +------+ + | Care Lead Esthetician Name | Role | Phone | + [...] + | 02/24/ | Home Care | [facility] [place] | Wanda Barbosa, | [facility] [place] ([place]) | | 2020 | Visit | [place] [address] | [place] | | | | | [place] | | | | | | [address] | | | | | | [phone] | | | +--------+ + + + [...] + + + | Blood Pressure | 117/68 | 02/25/2020 11:01 AM | | | | | PDT | | + + + + + | Pulse | 68 | 02/25/2020 11:01 AM | | | | | PDT | | + + + + + | Temperature | 36.2 C (97.1 F) | 02/25/2020 11:01 AM | | | | | PDT | | + + + + + | Respiratory Rate | 18 | 02/25/2020 11:01 AM | | | | | PDT | | + + + + + | Oxygen Saturation | 97% | 02/25/2020 11:01 AM | | | | | PDT [...] [place] | | | | | | [address] | | | | | | | | +--------+ + + + + | 04/11/ | Appointment | Radiology | Shawn Michael | | | 2019 | | | MD Marcelino [address] | | | | | | [address] | | | | | | [place] [address] | | | | | | [phone] | | | | | | | | +--------+ + + + + | 04/13/ | Office | Cardiology | Zacharynnamdi Shawn | | | 2019 | Visit | | MD Marcelino [address] | | | | | | [address] [place] | | | | | | [place] [address] | | | | | | [phone] | | | | | | | [...] - [place] | | Discipline - Jail | + + + + +--------+--------+ + + | Problem | Description | Start | Status | Goals | Interventio | | | | Date | | | ns | + + +--------+--------+ + + | HH SHARED AT RISK | At risk for | | | - | 1 problem | | FOR PRESSURE ULCER | pressure ulcer | | Active | | | | Disciplines: | | 020 | | | interventio | | Jail | | | | | n | | | | | | | scheduled/d | | | | | | | ocumented | | | | | | | in this | | | | | | | visit | + + +--------+--------+ + + | HH SHARED | Depression | | | - | 1 problem | | DEPRESSION | | | Active | | | | Disciplines: | | 020 | | | interventio | | Jail | | | | | n | | | | | | | scheduled/d | | | | | | | ocumented | | | | | | | in this | | | | | | | visit | + + +--------+--------+ + + | HH SHARED FALLS | Falls | | | - | 1 problem | | Disciplines: | | | Active | | | | Jail | | 020 | | | interventio [...] | | Active | | | | Jail | | 020 | | | interventio | | | | | | | n | | | | | | | scheduled/d | | | | | | | ocumented | | | | | | | in this | | | | | | | visit | + + +--------+--------+ + + | HH SN Medication | | | | - | 1 problem | | Management | | | Active | | | | Disciplines: | | 020 | | | interventio | | Jail | | | | | n | | | | | | | scheduled/d | | | | | | | ocumented | | | | | | | in this | | | | | | | visit | + + +--------+--------+ + + | Heart Failure/CHF | Heart | | | 1 goal | 1 goal | | Disciplines: | Failure/CHF | | Active | linked to | interventio | | Jail | | 020 | | scheduled/d | n | | | | | | ocumented | scheduled/d | | | | | | interventio | ocumented | | | | | | n | in this | | | | | | | visit | + + +--------+--------+ + + | Knowledge Deficit, | | | | - | 1 problem | | Education, | | | Active | | | | Discharge Plan | | 020 | | | interventio | | Disciplines: | | | | | n | | Jail, | | | | | scheduled/d | | Physical Therapy, | | | | | ocumented | | Home Health Aide, | | | | | in this | | Passport Application Examiner, | | | | | visit | | Respiratory Therapy | | | | | | + + +--------+--------+ + + | | 3L O2 NC. | | | - | 2 problem | | Oxygenation/Respirat | | | Active | | | | ory Function | | 020 | | | interventio | | Disciplines: | | | | | ns | | Jail | | | | | scheduled/d | | | | | | | ocumented | | | | | | | in this | | | | | | | visit | + + +--------+--------+ + + | Safety risks | | | | 1 goal | 4 goal | | related to oxygen | | | Active | linked to | interventio | | use Disciplines: | | 020 | | scheduled/d | ns | | Jail, | | | | ocumented | scheduled/d | | Physical Therapy, | | | | interventio | ocumented | | Occupational | | | | n | in this | | Therapy, Speech | | | | | visit | | Language Pathology, | | | | | | | Psychiatric Nursing | | | | | | + + +--------+--------+ + + | Wound Management | Pressure sore on | | | - | 2 problem | | Disciplines: | Coccyx Stage 2 | | Active | | | | Jail | | 020 | | | interventio | | | | | | | ns | | | | | | | [...] | + + +--------+-------+ + | HH Heart Failure | Heart Failure/CHF | | No | | | Description: The | | | | | | patient and/or | | | | | | caregiver will | | | | | | verbalize | | | | | | understanding of | | | | | | measures to manage | | | | | | CHF at home. The | | | | | | patient and/or | | | | | | caregiver will | | | | | | verbalize | | | | | | understanding of | | | | | | signs and symptoms | | | | | | requiring MD | | | | | | notification. | | | | | | Outcomes: The | | | | | | patient will have no | | | | | | acute CHF | | | | | | exacerbation. | | | | | + + +--------+-------+ + | Oxygen safety | Safety risks | | No | | | | related to oxygen | | | | | | use | | | | + + +--------+-------+ + + + +--------+--------+ + | Intervention | Associated | Status | Varian | Visit Notes | | | Problem/Goal | | ce | | + + +--------+--------+ + | Pressure ulcer | Problem: HH SHARED | | | Discussed pressure | | prevention | AT RISK FOR PRESSURE | Comple | | ulcer relief and | | Description: | ULCER | yoel | | importance to have pt | | Instruct PT/CG in | | | | off her sacrum most of | | ways to prevent skin | | | | the day.. | | breakdown which | | | [...] | + + +--------+--------+ + | Assess depression | Problem: HH SHARED | | | | | Description: | DEPRESSION | Comple | | | | Assess the patient | | yoel | | | | for feeling down, | | | | | | depressed or | | | | | | hopeless. Assess | | | | | | for effectiveness of | | | | | | drug therapy for | | | | | | depression. | | | | | | Instruct patient the | | | | | | need to take | | | | | | prescribed | | | | | | medications for | | | | | | depression as | | | | | | ordered. Assess | | | | | | need for adjustments | | | | | | to medications for | | | | | | depression. Assess | | | | | | need for referral to | | | | | | DIRECTOR OF GIFT PLANNING for counseling | | | | | | for other mental | | | | | | health services. | | | | | + + +--------+--------+ + | Fall prevention | Problem: HH SHARED | | | | | Description: RN to | FALLS | Comple | | | | assess patient | | yoel | | | | history of falls at | | | | | | each home visit. RN | | | | | | to instruct fall | | | | | | prevention which | | | | | | includes assistance | | | | | | with environmental | | | | | | changes, | | | | | | strengthening | | | | | | exercises. RN to | | | | | | assess patient's | | | | | | need for additional | | | | | | assistance and/or | | | | | | referral to | | | | | | Occupational therapy | | | | | | or Physical | | | | | | therapy. | | | | | + + +--------+--------+ + | Pain management | Problem: HH SHARED | | | See pain assessment | | Description: | PAIN | Comple [...] pt with | | | | of all medication(s) as | | setting up | [...] + + +--------+--------+ + | Instruct in CHF | Problem: Heart | | | | | Management | Failure/CHFGoal: HH | Comple | | | | Description: | Heart Failure | yoel | | | | Instruct the patient | | | | | | and/or caregiver in | | | | | | strategies to | | | | | | manage CHF. | | | | | + + +--------+--------+ + | Discharge planning | Problem: Knowledge | | | | | Description: | Deficit, Education, | Comple | | | | Assess if the | Discharge Plan | yoel | | | | established | | | | | | discharge plan is | | | | | | still agreeable with | | | | | | the | | | | | | patient/caregiver/fa | | | | | | chace/PCP or if a new | | | | | | discharge plan | | | | | | needs to be | | | | | | discussed and put in | | | | | | place. If patient | | | | | | is considering a | | | | | | higher level of care | | | | | | OR moving to a new | | | | | | home health agency, | | | | | | patient educated to | | | | | | the receiving | | | | | | facility's quality | | | | | | scores located in | | | | | | SOC packet. | | | | | + + [...] | + + +--------+--------+ + | Instruct energy | Problem: | | | Energy conservation | | conservation | Oxygenation/Respirat | Comple | | strategies including | | Description: | ory Function | yoel | | breathing techniques | | Instruct in energy | | | | developed, instructed, | | conservation | | | | reinforced with patient | | breathing technique. | | | | and caregiver. The | | | | | | patient and/or caregiver | | | | | | verbalized | | | | | | understanding of energy | | | | | | conservation | | | | | | strategies/breathing | | | | | | techniques as | | | | | | instructed:Yes. | + + +--------+--------+ + | Address oxygen | Problem: Safety | | | | | safety concerns | risks related to | Comple | | | | | oxygen useGoal: | yoel | | | | | Oxygen safety | | | | + + +--------+--------+ + | Educate on safe | Problem: Safety | | | | | storage of oxygen | risks related to | Comple | | | | | oxygen useGoal: | yoel | | | | | Oxygen safety | | | | + + +--------+--------+ + | Notify | Problem: Safety | | | | | provider/vendor when | risks related to | Comple | | | | unsafe oxygen | oxygen useGoal: | yoel | | | | practices are | Oxygen safety | | | | | observed in home | | | | | + + +--------+--------+ + | Request Oxygen | Problem: Safety | | | | | safety device/tubing | risks related to | Comple | | | | | oxygen useGoal: | yoel | | | | | Oxygen safety | | | | + + +--------+--------+ + | Wound care | Problem: Wound | | | | | Description: Wound | Management | Comple | | | | type: Pressure sore | | yoel | | | | stage 2 Wound | | | | | | location: Coccyx | | | | | | Wound care: Clean | | | | | | with WC/NS. May | | | | | | apply skin prep, | | | | | | foam with border. | | | | | | Frequency: RN to | | | | | | change 1-2 x weekly | | | | | | New order recieved | | | | | | 01/26/20 May use | | | | | | Hydrocolloid to | | | | | | coccyx wound until | | | | | | iodosorb is | | | | | | recieved. | | | | | + + +--------+--------+ + | Wound care | Problem: Wound | | | Son provided wound | | | Management | Comple | | care today and RN | | | | yoel | | assessed technique. He | | | | | | followed orders and in | | | | | | correct order, and with | | | | | | clean technique. Needed | | | | | | little queing. will | | | | | | need reinforcemtn. | + + +--------+--------+ + documented in this encounter"
--- OUTSIDE RECORDS SUMMARY | ~2020-03-14 | XMS | Encounter Summary ---
Demographics + + + | Address | [address] | | | [place] [address] | + + + | Home Phone [...] Team Providers + +------+ + | Care Mobile Home Lot Utility Worker Name | Role | Phone | [...] | +--------+ + + + + | 09/03/ | Home Care | [facility] [place] | Layla Pablo | CASE COMMUNICATION | | 2018 | Visit | [place] [address] | | | | | | [place] | | | | | | [address] | | | | | | [phone] | | | +--------+ + + + [...] [place] | | | | | | [id number] | | | | | | | | +--------+ + + + + | 04/11/ | Appointment | Radiology | Shawn Michael | | | 2019 | | | MD Marcelino [address] | | | | | | [address] | | | | | | [place] [address] | | | | | | [phone] | | | | | | | | +--------+ + + + + | 04/13/ | Office | Cardiology | Shawn Michael | | | 2020 | Visit | | MD Marcelino [address] | | | | | | [address] | | | | | | [place] [address] | | | | | | [phone] | | | | | | | [...]
--- OUTSIDE RECORDS SUMMARY | ~2020-03-14 | XMS | Encounter Summary ---
Demographics + + + | Address | [address] | | | [place] [address] | + + + | Home Phone | | + + + | Preferred Language | Unknown | + + + | Marital Status | | + + + | Adventist Affiliation | Unknown | + + + | Race | Unknown | + + + | Ethnic Group | Unknown | + + + Author + + + | Author | [facility] | | | and [place] | + + + | Organization | [facility] | | | [...] Team Providers + +------+ + | Care Software Technician Name | Role | Phone | + +------+ + | Candido Link | PCP | | | MD | | | + +------+ + Reason for Visit + + + | Reason | Comments | + + + | Follow-up | | + + + Evaluate & Treat (Routine) + + + + + + + | Status | Reason | Specialty | Diagnoses / | Referred By | Referred To | | | | | Procedures | Contact | Contact | + + + + + + + | Authorized | Specialty | Pulmonary | Diagnoses | | Lina Correa | | | Services | Disease / | | Yana-Rossy | MD Jan | | | Required | Pulmonology | 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, | [address]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 | [place] | [address] [place] | | | | | ([facility]) | MD [address] | [place] | | | | | | [address] | [address] Phone: | | | | | | [place], | [phone] | | | | | | [place] | Fax: | | | | | | [address] | [phone] | | | | | | Phone: | | | | | | | [phone] | | | | | | | Fax: | | | | | | | [phone] | | + + + + + + + Encounter Details +--------+ + + + + | Date | Type | Department | Care Team | Description | +--------+ + + + + | 01/20/ | Virtual | [facility] | Lina Correa | Chronic obstructive | | 2020 | Office | PULMONARY [address] | MD Jan [address] | pulmonary disease, | | | Visit | [place], | [address] [place] | unspecified COPD | | | | [place] [address] | [place] [address] | type (HCC) (Primary | | | | [phone] | [phone] | Dx); Chronic | | | | [...] documented as of this encounter Progress Notes Lina Correa MD - 01/21/2020 10:15 AM PDTThis exam was initially conducted via a sec ure 256-bit AES encrypted bidirectional video session. Service was provided [id number] with the patient via interactive videoconferencing Video start time 10:15 Video end time 10:31 Total time (in minutes) including non [id number] time (reviewing records, documentation, etc..) 26 mins You have chosen to receive care through the use of telemedicine. Telemedicine enables [facility] care providers at different locations to provide safe, effective and convenient care throu gh the use of technology. As with any health care service, there are risks associated with t he use of telemedicine, including equipment failure, poor image resolution and information s ecurity issues. Do you understand the risks and benefits of telemedicine as I have explained them to you? " Yes" Have your questions regarding telemedicine been answered? "Yes" Patient is currently at home Do you consent to the use of telemedicine in your medical care today? Yes. Last question, I need to confirm where are you physically located right now? Answer: Patient confirms they are located in a state where I, Lina Correa MD am licensed . HPI 88 year old female with past medical history of COPD (reportedly with history of reduced PF Ts), chronic hypoxic respiratory failure on 2-3L, anxiety, GERD, hx of TAVR who presents for evaluation of COPD. Her son Yadiel provides most of the history. - Patient last seen in pulmonary clinic 08/05/19. - In the interim, patient was admitted to hospital in September for acute diverticulitis, th en again in November for Influenza A and COPD exacerbation. - Most recently she was admitted to hospital 12/01-12/10/2019 for MRSA pneumonia. - Since discharge, patient has returned to her usual baseline per report from her son. - Patient does have some SOB with exertion. - She continues to use 2-3L supplemental O2 with exertion. - No cough. No wheezing. - For her regimen, patient is brovana nebs BID, budesonide nebs BID and prednisone 10mg millie ly. - She was prescribed a trial of duonebs at her last visit, but her son reports this made e patient cough and more SOB so was changed back to her prior regimen. - No fever or chills. No chest pain, peripheral edema. - Patient's son requests PFT. Objective: - Reviewed prior notes, discharge summaries, labs. - CXR 12/12/2019: Independently reviewed. Flattening of the diaphragms, coarse interstitial m arkings. Assessment/Plan: COPD - Patient with one hospitalization for COPD exacerbation in the setting of influenza A. Continue current regimen. Continue Brovana, budesonide nebs and prednisone 10 mg daily . A trial of duonebs was provided, with reports that this increased cough and shortness o f breath so was discontinued. Check full pulmonary function test per patient request. Chronic hypoxic respiratory failure Patient to use 2 L at rest and 3 L with exertion. Maintain sats between 88 to 92%. Return to clinic in 6 months with full pulmonary function test. documented in this encounter Plan of Treatment +--------+ + + + + | Date | Type | Specialty | Care Team | Description | +--------+ + + + + | 03/23/ | Office | Anticoagulation | García Harris, | | 2019 | Visit | | CLEANING VALIDATION CONSULTANT [address] | | | | | | [place] | | | | | | [id number] | | | | | | | | +--------+ + + + + | 04/11/ | Appointment | Radiology | Shawn Michael | | 2019 | | | MD Marcelino [address] | | | | | | [address] | | | | | | [place] [address] | | | | | | [phone] | | | | | | | | +--------+ + + + + | 04/13/ | Office | Cardiology | Shawn Michael | | | 2019 | Visit | | MD Marcelino [address] | | | | | | [address] [place] | | | | | | [place] [address] | | | | | | [phone] | | | | | | | | +--------+ + + + + + +------+--------+ + + | Name | Type | Priori | Associated Diagnoses | Order Schedule | | | | ty | | | + +------+--------+ + + | PFT [facility] | PFT | Routin | Chronic | Expected: | | | | e | obstructive | 07/22/2020, Expires: | | | | | pulmonary disease, | 01/20/2021 | | | | | unspecified COPD | | | | | | type (HCC) | | + +------+--------+ + + documented as of this encounter Visit Diagnoses + + | Diagnosis | + + | Chronic obstructive pulmonary disease, unspecified COPD type (HCC) - Primary | + + | Chronic hypoxemic respiratory failure (HCC) Chronic respiratory failure | + + documented in this encounter Additional Health Concerns + + + + | Infection | Noted Time | Resolved Time | + + + + | Methicillin-resistant Staphylococcus aureus | 06/08/2019 9:39 AM | | | | PDT | | + + + + documented as of this encounter
--- OUTSIDE RECORDS SUMMARY | ~2020-03-14 | XMS | Encounter Summary ---
Demographics + + + | Address | [address] | | | [place] [address] | + + + | Home Phone | | + + + | Preferred Language | Unknown | + + + | Marital Status | | + + + | Rastafari Affiliation | Unknown | + + + [...] Team Providers + +------+ + | Care Dynamite Reclaimer Name | Role | Phone | + [...] + | 12/13/ | Home Care | [facility] [place] | Nivia Olivarez CNA | HH AIDE REPEAT VISIT | | 2019 | Visit | [place] [address] | | | | | | [place] | | | | | | [address] | | | | | | [phone] | | | +--------+ + + + [...] [place] | | | | | | [id number] | | | | | | | | +--------+ + + + + | 04/11/ | Appointment | Radiology | Shawn Michael | | 2019 | | | MD Marcel[place] [address] | | | | | | [address] | | | | | | [place] [address] | | | | | | [phone] | | | | | | | | +--------+ + + + + | 04/13/ | Office | Cardiology | Julieta Michaelr | | | 2019 | Visit | | MD Marcelino [address] | | | | | | [address] [place] | | | | | | [place] [address] | | | | | | [phone] | | | | | | | [...] Plan + + | Visit Type - CORRECTIONAL MANAGER - REPEAT VISIT | | Discipline [...] + + | HH Aide Need | CORRECTIONAL MANAGER services | | | 1 goal [...] | | | ocumented | | | Fdc, | | | | interventio | | | Physical Therapy, | | | | n | | | Home Health Aide, | | | | | | | Blasting Worker, | | | | | | | [...] plan of care: | | personal care: {HH | care, living | | | shower: shampoo: | | AIDE PERSONAL | environment and ADLs | | | pericare: skin/back | | CARE:[id number]} | | | | care: brush/comb hair | | | | | | dressing: | + + +--------+--------+ + documented in this encounter"
--- OUTSIDE RECORDS SUMMARY | ~2020-03-14 | XMS | Encounter Summary ---
Demographics + + + | Address | [address] | | | [place] [address] | + + + | Home Phone [...] Team Providers + +------+ + | Care Splunk Developer Name | Role | Phone | + [...] | +--------+ + + + + | 09/22/ | Home Care | [facility] [place] | Bernardo Souza | OT REPEAT VISIT | | 2018 | Visit | [place] [address] | [place], [place] | | | | | [place] | | | | | | [address] | | | | | | [phone] | | | +--------+ + + + [...] + +---------+ + + | Pulse | 95 | 09/22/2019 2:35 PM | | | | | PST | | + +---------+ + + | Temperature | - | - | | + +---------+ + + | Respiratory Rate | - | - | | + +---------+ + + | Oxygen Saturation | 94% | 09/22/2019 2:35 PM | | | | | PST [...] | | 2019 | Visit | | CLINICAL NUTRITION MANAGER [address] | | | | | | [place] | | | | | | [address] | | | | | | | | +--------+ + + + + | 04/11/ | Appointment | Radiology | Shawn Michael | | | 2019 | | | MD [address] | | | | | | [address] [place] | | | | | | [place] [address] | | | | | | [phone] | | | | | | | | +--------+ + + + + | 04/13/ | Office | Cardiology | Shawn Michael | | | 2019 | Visit | | MD Marcelino [address] | | | | | | [address] [place] | | | | | | [place] [address] | | | | | | [phone] | | | | | | | [...] + +--------+--------+ + + | HH OT HEP NEED | HEP need | | | 1 goal | 1 [...] + +--------+--------+ + + | HH OT IMPAIRED | Muscle | | | 1 goal | 1 goal | | STRENGTH | re-education | 09/15/ | Active | linked to | interventio | | Disciplines: | | 2019 | | scheduled/d | n | | Occupational Therapy | | | | ocumented | [...] + + +--------+-------+ + | HH OT HOME | HH OT HEP NEED | | No | | | EXERCISE PROGRAM | | | | | | (HEP) NEED | | | | | | Description: The | | | | | | patient and/or | | | | | | caregiver will be | | | | | | independent in the | | | | | | home exercise | | | | | | program. | | | | | + + +--------+-------+ + | HH OT IMPAIRED | HH OT IMPAIRED | | No | | | STRENGTH | STRENGTH | | | | | Description: By | | | | | | 10/12/2019, patient | | | | | | will have increased | | | | | | BUE strength to 4/5 | | | | | | to increase | | | | | | independence with | | | | | | ADLs. | | | | | + + +--------+-------+ + + + +--------+--------+ + | Intervention | Associated | Status | Varian | Visit Notes | | | Problem/Goal | | ce | | + + +--------+--------+ + | Establish and/or | Problem: HH OT HEP | | | | | Progress HEP | NEEDGoal: HH OT HOME | Comple | | | | Description: | EXERCISE PROGRAM | yoel | | | | Instruct patient | (HEP) NEED | | | | | and/or caregiver in | | | | | | home exercise | | | | | | program. | | | | | + + +--------+--------+ + | OT muscle | Problem: HH OT | | | | | re-education | IMPAIRED | Comple | | | | Description: | STRENGTHGoal: HH OT | yoel | | | | Occupational | IMPAIRED STRENGTH | | | | | Therapist to visit | | | | | | for muscle | | | | | | re-education related | | | | | | to decreased | | | | | | activity tolerance. | | | | | + + +--------+--------+ + documented in this encounter"
--- OUTSIDE RECORDS SUMMARY | ~2020-03-14 | XMS | Encounter Summary ---
Demographics + + + | Address | [address] | | | [place] [address] | + + + | Home Phone | | + + + | Preferred Language | Unknown | + + + | Marital Status | | + + + | Christianity Affiliation | Unknown | + + + [...] Team Providers + +------+ + | Care Assistant Inventory Manager Name | Role | Phone | + +------+ + | Candido Link | PCP | | | MD | | | + +------+ + Reason for Visit + + + | Reason | Comments | + + + | Shortness of Breath | | + + + | Chest Pain | | + + + Encounter Details +--------+ + + + + | Date | Type | Department | Care Team | Description | +--------+ + + + + | 07/06/ | Emergency | [facility] | Corbin Hastings MD | Dyspnea, unspecified | | 2019 | | [facility] | [address] | type (Primary Dx) | | | | CENTER [address] | [place] | | | | | [place] | [address] | | | | | [address] | | | | | | [phone] | | | +--------+ + + + [...] + + + | Blood Pressure | 154/68 | 07/06/2019 4:59 PM | | | | | PDT | | + + + + + | Pulse | 90 | 07/06/2019 4:10 PM | | | | | PDT | | + + + + + | Temperature | 36.8 C (98.2 F) | 07/06/2019 3:12 PM | | | | | PDT | | + + + + + | Respiratory Rate | 16 | 07/06/2019 3:12 PM | | | | | PDT | | + + + + + | Oxygen Saturation | 100% | 07/06/2019 4:10 PM | | | | | PDT | | + + + + + | Inhaled Oxygen | - | - | | | Concentration | | | | + + + + + | Weight | 54.6 kg (120 lb 5.9 | 07/06/2019 3:12 PM | | | | oz) | PDT | | + + + + + | Height | - | - | | + + + + + | Body Mass Index | 20.03 | 06/28/2019 8:00 PM | | | | | PDT | | + + + + + documented in this encounter Discharge Instructions Instructions Corbin Hastings MD - 07/06/2019Continue medications as previously Return for worsening symptoms, not improving, the new complaints documented in this encounter Medications at Time [...] 1 drop into | | 12 | / | | | (XALATAN) 0.005% | both [...] by mouth | | 0 | | 11/26/201 | | (IMODIUM A-D) 2 MG | [...] | Visit | | [facility] [address] | | | | | | [place] | | | | | | [address] | | | | | | | | +--------+ + + + + | 04/11/ | Appointment | Radiology | Shawn Michael | | | 2019 | | | MD [address] | | | | | | [address] | | | | | | [place] [address] | | | | | | [phone] | | | | | | | | +--------+ + + + + | 04/13/ | Office | Cardiology | Shawn Michael | | 2019 | Visit | | MD [address] | | | | | | [address] [place] | | | | | | [place] [address] | | | | | | [phone] | | | | | | | | +--------+ + + + + + +------+--------+ + + | Name | Type | Priori | Associated Diagnoses | Date/Time | | | | ty | | | + +------+--------+ + + | ED INFORMATION | MICHAEL | Routin | | 07/06/2019 3:05 PM | | EXCHANGE | | e | | PDT | + +------+--------+ + + documented as of this encounter Procedures + +--------+ + + + | Procedure Name | Priori | Date/Time | Associated Diagnosis | Comments | | | ty | | | | + +--------+ + + + | URINALYSIS WITH | STAT | 07/06/2019 | | Results for this | | MICROSCOPIC WITH | | 4:21 PM | | procedure are in the | | CULTURE IF INDICATED | | PDT | | results section. | + +--------+ + + + | XR CHEST AP PORTABLE | STAT | 07/06/2019 | | Results for this | | | | 3:42 PM | | procedure are in the | | | | PDT | | results section. | + +--------+ + + + | ECG 12 LEAD | STAT | 07/06/2019 | | Results for this | | | | 3:24 PM | | procedure are in the | | | | PDT | | results section. | + +--------+ + + + | CBC W/AUTO | STAT | 07/06/2019 | | Results for this | | DIFFERENTIAL | | 3:23 PM | | procedure are in the | | | | PDT | | results section. | + +--------+ + + + | TROPONIN I | STAT | 07/06/2019 | | Results for this | | | | 3:23 PM | | procedure are in the | | | | PDT | | results section. | + +--------+ + + + | PROTIME INR | STAT | 07/06/2019 | | Results for this | | | | 3:23 PM | | procedure are in the | | | | PDT | | results section. | + +--------+ + + + | B TYPE NATRIURETIC | STAT | 07/06/2019 | | Results for this | | PEPTIDE | | 3:23 PM | | procedure are in the | | | | PDT | | results section. | + +--------+ + + + | COMPREHENSIVE | STAT | 07/06/2019 | | Results for this | | METABOLIC PANEL | | 3:23 PM | | procedure are in the | | | | PDT | | results section. | + +--------+ + + + documented in this encounter Results Urinalysis with Microscopic with Culture if Indicated (07/06/2019 4:21 PM PDT) + + + + + [...] + + + + | Specific | 1.017 | 1.001 - 1.030 | [facility] | | | [place], | | | [facility] | | [...] + + + | White Blood | 2-5 (A) | 0 - [...] + + + + | Squamous | 15-25 (A) | 0 - 2 [...] + + + + | Hyaline | 0-2 | 0 - 2 /LPF | [facility] | | | Casts, | | | [facility] | | | Urine | | | MEDICAL | | | | | | CENTER - | | | | | | LABORATORY | | + + + + + + | Urine | Urine Culture Not | | [facility] | | | Comment | Indicated | | [facility] | | | [...] | [address] | [place], [place] | [phone] | | [facility] | | [address] | | | - LABORATORY | | | | + + + + + XR Chest AP Portable (07/06/2019 3:42 PM PDT) + + | Specimen | + + | | + + + + + | Narrative | Performed At | + + + | EXAM: XR CHEST AP PORTABLE dated 07/06/2019 3:41 PM HISTORY: | [facility] | | SHORTNESS OF BREATH CHEST PAIN Comparison: 06/11/2019 | | | TECHNIQUE: A single portable view of the chest. FINDINGS: The | | | lungs are symmetrically aerated. Mild hyperexpansion. Improved | | | aeration of the right lower lung. There are no large pleural | | | effusions. There is no pneumothorax. The cardiac and mediastinal | | | contours are not enlarged. Vascular stents in the aorta. No acute | | | osseous abnormalities. IMPRESSION - No radiographic evidence | | | for acute disease in the chest. Dictated and Signed by: Edwin Mejias | | MD Wesly Electronically signed: 07/06/2019 4:18 PM | | + + + + + | Procedure Note | + + | Kobe, Rad Results In - 07/06/2019 4:21 PM PDT EXAM: XR CHEST AP PORTABLE dated | | 07/06/2019 3:41 PMHISTORY: SHORTNESS OF BREATHCHEST PAINComparison: 06/11/2019TECHNIQUE: A | | single portable view of the chest.FINDINGS:The lungs are symmetrically aerated. Mild | | hyperexpansion. Improved aeration ofthe right lower lung. There are no large pleural | | effusions. There is nopneumothorax. The cardiac and mediastinal contours are not | | enlarged. Vascularstents in the aorta. No acute osseous abnormalities. IMPRESSION -No | | radiographic evidence for acute disease in the chest.Dictated and Signed by: Edwin Parson | | MD [place] Electronically signed: 07/06/2019 4:18 PM | | | |FINDINGS: | | | |The lungs are symmetrically aerated. Mild hyperexpansion. Improved aeration of | |the right lower lung. There are no large pleural effusions. There is no | |pneumothorax. The cardiac and mediastinal contours are not enlarged. Vascular | |stents in the aorta. No acute osseous abnormalities. | | | |IMPRESSION - | | | |No radiographic evidence for acute disease in the chest. | | | |Dictated and Signed by: Edwin Jarrell MD | | Electronically signed: 07/06/2019 4:18 PM | + + + +---------+ + + | Performing | Address | City/State/Zipcode | Phone Number | | Organization | | | | + +---------+ + + | [facility] | | | | + +---------+ + + ECG 12 lead (07/06/2019 3:24 PM PDT) + + + + + + | Component | Value | Ref Range | Performed | Pathologist | | | | | At | Signature | + + + + + + | VENTRICULAR | 88 | BPM | [facility] | | | RATE EKG | | | | | + + + + + + | ATRIAL RATE | 88 | BPM | [facility] | | + + + + + + | P-R | 130 | ms | [facility] | | | INTERVAL | | | | | + + + + + + | QRS | 84 | ms | [facility] | | | DURATION | | | | | + + + + + + | Q-T | 330 | ms | [facility] | | | INTERVAL | | | | | + + + + + + | Q-T | 399 | ms | [facility] | | | INTERVAL | | | | | | (CORRECTED) | | | | | + + + + + + | P WAVE AXIS | 68 | degrees | [facility] | | + + + + + + | QRS AXIS | 58 | degrees | [facility] | | + + + + + + | T AXIS | 69 | degrees | [facility] | | + + + + + + | INTERPRETAT | Normal sinus rhythmWhen | | [facility] | | | ION TEXT | compared with ECG of | | | | | | 28-JUN-2019 20:13,No | | | | | | significant change was | | | | | | foundConfirmed by | | | | | | LEONIDAS CALVO MD ([id number]) | | | | | | on 07/07/2019 5:34:48 AM | | | | + + [...] | | | + +---------+ + + Jeffime SOPHIA (07/06/2019 3:23 PM PDT) + + + + + + | Component | Value | Ref Range | Performed | Pathologist | | | | | At | Signature | + + + + + + | Prothrombin | 13.1 | 11.3 - 13.9 | [facility] | | | Time | | seconds | [facility] | | | | | | MEDICAL | | | | | | CENTER - | | | | | | LABORATORY | | + + + + + + | INR | 1.0Comment: Usual Oral | 0.9 - 1.1 | [facility] | | | | Anticoagulation Range: | | [facility] | | | | 2.0 - 3.0High [...] + | [facility] | [address] | [place] | [phone] | | [facility] | | [address] | | | - LABORATORY | | | | + + + + + B Type Natriuretic Peptide (07/06/2019 3:23 PM PDT) + +---------+ + + + | Component | Value | Ref Range | Performed | Pathologist | | | | | At | Signature | + +---------+ + + + | BNP | 232 (H) | <100 pg/mL | [facility] | | | | | | [facility] | | | | | | [...] | + + + + + | [facility] | [address] | [place] | [phone] | | [facility] | | [address] | | | - LABORATORY | | | | + + + + + Troponin I (07/06/2019 3:23 PM PDT) + + + + + + | Component | Value | Ref Range | Performed | Pathologist | | | | | At | Signature | + + + + + + | Troponin I | 0.01Comment: | <0.06 ng/mL | [facility] | | | | Comment:Reference | | [facility] | | | | Ranges: 0.00-0.06 = [...] | | | | | | [employer] | | | | | [...] [address] | [place] | [phone] | | [facility] | | [address] | | | - LABORATORY | | | | + + + + + Comprehensive Metabolic Panel (07/06/2019 3:23 PM PDT) + + + + + + | Component | Value | Ref Range | Performed | Pathologist | | | | | At | Signature | + + + + + + | Na | 147 (H) | 136 - 145 | [facility] | | | | | mmol/L | [facility] | | | | | | MEDICAL | | | | | | CENTER - | | | | | | LABORATORY | | + + + + + + | K | 3.8 | 3.4 - 5.1 | [facility] | | | | | mmol/L | [facility] | | | | | | MEDICAL | | | | | | CENTER - | | | | | | LABORATORY | | + + + + + + | Cl | 112 (H) | 98 - 107 mmol/L | [...] + + + + | Glucose | 94 | 60 - 106 mg/dL | [facility] | | | | | | [facility] | | | | | | MEDICAL | | | | | | CENTER - | | | | | | LABORATORY | | + + + + + + | BUN | 23 | 9 - 23 mg/dL | [facility] | | | | | | [facility] | | | | | | MEDICAL | | | | | | CENTER - | | | | | | LABORATORY | | + + + + + + | Creatinine | 0.74 | 0.55 - 1.02 | [facility] | | | | | mg/dL [...] mL/min/1.73m2 | [facility] | | | [place] | RATE,ESTIMATED | | MEDICAL | | | | mL/min/1.27y2Asac than | | CENTER - | | [...] + + + + | AST | 14 | 0 - 34 U/L | [facility] | | | | | | [facility] | | | | | | MEDICAL | | | | | | CENTER - | | | | | | LABORATORY | | + + + + + + | ALT | 8 (L) | 10 - 49 U/L | [facility] | | | | | | [facility] | | | | | | MEDICAL | | | | | | CENTER - | | | | | | LABORATORY | | + + + + + + | Alkaline | 81 | 46 - 116 U/L | [facility] [...] + + + + | Albumin/Sarika | 1.6 | 0.8 - 1.9 | [facility] | | | bulin Ratio | | | [facility] | | | | | | MEDICAL | | | | | | CENTER - | | | | | | LABORATORY | | + + + + + + | BUN/Creatin | 31.1 | | [facility] | | | ine [...] [address] | [place] | [phone] | | [facility] | | [address] | | | - LABORATORY | | | | + + + + + CBC w/ Auto Differential (07/06/2019 3:23 PM PDT) + + + + + [...] + + + + | RBC | 3.37 (L) | 3.70 - 5.20 | [facility] | | | | | M/uL | [facility] | | | | | | MEDICAL | | | | | | CENTER - | | | | | | LABORATORY | | + + + + + + | Hemoglobin | 9.9 (L) | 11.5 - 16.0 | [facility] | | | | | g/dL | [facility] | | | | | | MEDICAL | | | | | | CENTER - | | | | | | LABORATORY | | + + + + + + | Hematocrit | 32.8 (L) | 34.0 - 47.0 % | [facility] | | | | | | [facility] | | | | | | MEDICAL | | | | | | CENTER - | | | | | | LABORATORY | | + + + + + + | MCV | 97.3 | 83.0 - 101.0 fL | [facility] | | | | | | [facility] | | | | | | MEDICAL | | | | | | CENTER - | | | | | | LABORATORY | | + + + + + + | MCH | 29.4 | 28.0 - 35.0 pg | [facility] | | | | | | [facility] | | | | | | MEDICAL | | | | | | CENTER - | | | | | | LABORATORY | | + + + + + + | MCHC | 30.2 (L) | 32.0 - 36.0 | [facility] | | | | | g/dL | [facility] | | | | | | MEDICAL | | | | | | CENTER - | | | | | | LABORATORY | | + + + + + + | RDW-CV | 15.0 (H) | <15.0 % | [facility] | | | | | | [facility] | | | | | | MEDICAL | | | | | | CENTER - | | | | | | LABORATORY | | + + + + + + | RDW-SD | 54.1 (H) | 35.1 - 46.3 fL | [facility] | | | | | | [facility] | | | | | | MEDICAL | | | | | | CENTER - | | | | | | LABORATORY | | + + + + + + | Platelet | 174 | 140 - 440 K/uL | [facility] [...] + + + + | % | 74.3 | 45.0 - 82.0 % | [facility] | | | Neutrophils | | | [facility] | | | | | | MEDICAL | | | | | | CENTER - | | | | | | LABORATORY | | + + + + + + | % | 13.5 (L) | 20.0 - 45.0 % | [...] + + + + | % | 2.5 | 0.0 - 5.0 % | [facility] [...] | | Granulocyte | | | [facility] | | | s | | | MEDICAL | | | | | | CENTER - | | | | | | LABORATORY | | + + + + + + | Absolute | 8.02 | 1.80 - 8.50 | [facility] | | | Neutrophils | | K/uL | [facility] | | | | | | MEDICAL | | | | | | CENTER - | | | | | | LABORATORY | | + + + + + + | Absolute | 1.46 | 0.60 - 3.20 | [facility] | [...] + + + + | Absolute | 0.27 | 0.00 - 0.40 | [facility] | [...] + | [facility] | [address] | [place] | [phone] | | [facility] | | [address] | | | - LABORATORY | | | | + + + + + documented in this encounter Visit Diagnoses + + | Diagnosis | + + | Dyspnea, unspecified type - Primary | + + documented in this encounter Additional Health Concerns + + + + | Infection | Noted Time | Resolved Time | + + + + | Methicillin-resistant Staphylococcus aureus | 06/08/2019 9:39 AM | | | | PDT | | + + + + documented as of this encounter"
--- OUTSIDE RECORDS SUMMARY | ~2020-03-14 | XMS | Encounter Summary ---
Demographics + + + | Address | [address] | | | [place] [address] | + + + | Home Phone | | + + + | Preferred Language | Unknown | + + + | Marital Status | | + + + | Zoroastrianism Affiliation | Unknown | + + + | Race | Unknown | + + + | Ethnic Group | Unknown | + + + Author + + + | Author | [facility] | | | and [place] | + + + | Organization | [facility] | | [...] Team Providers + +------+ + | Care Handle Sewer Name | Role | Phone | + [...] + | 12/21/ | Home Care | [facility] [place] | García Walker, PT | PT DISCIPLINE D/C | | 2020 | Visit | [place] [address] | [address] [place] | | | | | [place] | [place] [address] | | | | | [address] | [phone] | | | | | [phone] | | | +--------+ + + + [...] + | Blood Pressure | 100/60 | 12/22/2019 10:15 AM | | | | | PDT | | + + + + + | Pulse | 88 | 12/22/2019 10:15 AM | | | | | PDT | | + + + + + | Temperature | 37 C (98.6 F) | 12/22/2019 10:15 AM | | | | | PDT | | + + + + + | Respiratory Rate | - | - | | + + + + + | Oxygen Saturation | 91% | 12/22/2019 10:15 AM | on 3L | | | | PDT | | [...] [place] | | | | | | [address] | | | | | | | | +--------+ + + + + | 04/11/ | Appointment | Radiology | Shawn Michael | | | 2019 | | | MD [place] | | | | | | [address] | | | | | | [place] [address] | | | | | | [phone] | | | | | | | | +--------+ + + + + | 04/13/ | Office | Cardiology | Zacharynnamdi Shawn | | | 2019 | Visit | | MD [place] [address] | | | | | | [address] [place] | | | | | | [place] [address] | | | | | | [phone] | | | | | | | [...] + | Visit Type - PT - DISCIPLINE D/C | | Discipline - Physical Therapy | + + + + +--------+--------+ + + | Problem | Description | Start | Status | Goals | Interventio | | | | Date | | | ns | + + +--------+--------+ + + | HH PT DYSPNEA | Dyspnea | | | 1 goal | 1 goal | | Disciplines: | | | Active | linked to | interventio | | Physical Therapy | | 020 | | scheduled/d | [...] goal | | GAIT Disciplines: | | | Active | linked to | interventio | | Physical Therapy | | 020 | | scheduled/d | [...] 1 goal | | Disciplines: | | | Active | linked to | interventio | | Physical Therapy | | 020 | | scheduled/d | n | | | | | | ocumented | scheduled/d | | | | | | interventio | ocumented | | | | | | n | in this | | | | | | | visit | + + +--------+--------+ + + | Health Promotion | Immunizations | | | - | 1 problem | | Disciplines: | | | Active | | | | Jail, | | 020 | | | interventio | | Physical Therapy, | | | | | n | | Occupational | | | | | scheduled/d | | Therapy, Home Health | | | | | ocumented | | [employer], | | | | | in this | | Respiratory Therapy | | | | | visit | + + +--------+--------+ + + + + +--------+-------+ + | Goal | Associated Problem | Outcom | Goal | Visit Notes | | | | e | Met? | | + + +--------+-------+ + | HH PT DYSPNEA | HH PT DYSPNEA | | No | | | Description: The | | | | | | patient will be able | | | | | | to maintain O2 sats | | | | | | at or above 90% on | | | | | | 3L pnc after 100 ft | | | | | | ambulation in 3 | | | | | | weeks. Notify MD if | | | | | | oxygen saturation | | | | | | is less than 90%. | | | | | | Outcomes: The | | | | | | patient will be able | | | | | | to walk and perform | | | | | | MRADLs with | | | | | | improved respiratory | | | | | | function and | | | | | | decreased symptoms | | | | | | of dyspnea. | | | | | + + +--------+-------+ + | HH PT GAIT/STAIRS | HH PT IMPAIRED | | No | | | Description: The | GAIT | | | | | patient will | | | | | | ambulate 100 feet | | | | | | using 4-wheeled | | | | | | walker with | | | | | | supervision in 3 | | | | | | weeks. OUTCOMES: | | | | | | The patient will be | | | | | | able to safely | | | | | | ambulate with | | | | | | supervision to/from | | | | | | community | | | | | | appointments. The | | | | | | patient will be able | | | | | | to safely manage | | | | | | steps to get to and | | | | | | from home. | | | | | + + +--------+-------+ + | HH PAIN | HH SHARED PAIN | | No | | | Description: The | | | | | | patient will rate | | | | | | knee and shoulder | | | | | | pain at 5/10 or | | | | | | less. Outcomes: | | | | | | The patient will be | | | | | | able to transfers | | | | | | and ADLs with | | | | | | decreased symptoms | | | | | | of pain. | | | | | + + +--------+-------+ + + + +--------+--------+ + | Intervention | Associated | Status | Varian | Visit Notes | | | Problem/Goal | | ce | | + + +--------+--------+ + | HH PULSE OXIMETRY | Problem: PT | | | | | Description: | DYSPNEAGoal: PT | Comple | | | | Assess oxygen | DYSPNEA | yoel | | | | saturation [...] | | | | | pain through pain | | | | | | intensity scale. | | | | | + + +--------+--------+ + | Discharge planning | Problem: Health | | | | | Description: | Promotion | Comple | | | | Assess if the | | yoel | | | | established [...]
--- OUTSIDE RECORDS SUMMARY | ~2020-03-14 | XMS | Encounter Summary ---
Demographics + + + | Address | [address] | | | [place] [address] | + + + | Home Phone | | + + + | Preferred Language | Unknown | + + + | Marital Status | | + + + | Protestant Affiliation | Unknown | + + + | Race | Unknown | + + + | Ethnic Group | Unknown | + + + Author + + + | Author | [facility] | | | and [place] | + + + | Organization | [facility] | [...] Team Providers + +------+ + | Care City Routeman Name | Role | Phone | + [...] Description | +--------+--------+ + + + | 08/16/ | Refill | [facility] | Nikolay, | Medication Refill | | 2019 | | MEDICINE [address] | MD Candido | | | | | [facility] | [address] [place] [address] | | | | | [place] [address] | [place] [address] | | | | | [phone] | [phone] | | | | | | | [...] | | 2019 | Visit | | CARRIAGE OPERATOR [address] | | | | | | [place] | | | | | | [address] | | | | | | | | +--------+ + + + + | 04/11/ | Appointment | Radiology | Shawn Michael | | | 2019 | | | MD [address] | | | | | | [address] [place] | | | | | | [place] [address] | | | | | | [phone] | | | | | | | | +--------+ + + + + | 04/13/ | Office | Cardiology | Shawn Michael | | | 2019 | Visit | | MD [address] | | | | | | [address] [place] | | | | | | [place], [place] [address] | | | | | | [phone] | | | | | | | [...]
--- OUTSIDE RECORDS SUMMARY | ~2020-03-14 | XMS | Encounter Summary ---
Demographics + + + | Address | [address] | | | [place] [address] | + + + | Home Phone [...] Team Providers + +------+ + | Care Furniture Finisher Apprentice Name | Role | Phone | + +------+ + | Candido Link | PCP | | | MD | | | + +------+ + Reason for Visit +--------+ + | Reason | Comments | +--------+ + | Other | Orders | +--------+ + Encounter Details +--------+ + + + + | Date | Type | Department | Care Team | Description | +--------+ + + + + | 09/20/ | Telephone | [facility] | Nikolay, | Other (Orders) | | 2018 | | MEDICINE [address] [place] [address] | MD Candido | | | | | [facility] | [address] [place] [address] | | | | | [place] [address] | [place] [address] | | | | | [phone] | [phone] | | | | | | | [...] | | 2019 | Visit | | CRYOGENICS REPAIRER [address] | | | | | | [place] | | | | | | [address] | | | | | | | | +--------+ + + + + | 04/11/ | Appointment | Radiology | Shawn Michael | | 2019 | | | MD [address] | | | | | | [address] [place] | | | | | | [place] [address] | | | | | | [phone] | | | | | | | | +--------+ + + + + | 04/13/ | Office | Cardiology | Shawn Michael | | 2019 | Visit | | MD [address] | | | | | | [address] [place] | | | | | | [place] [address] | | | | | | [phone] | | | | | | | [...]
--- OUTSIDE RECORDS SUMMARY | ~2020-03-14 | XMS | Encounter Summary ---
Demographics + + + | Address | [address] | | | [place] [address] | + + + | Home Phone | | + + + | Preferred Language | Unknown | + + + | Marital Status | | + + + | Gnosticist Affiliation | Unknown | + + + [...] Team Providers + +------+ + | Care Tool Crib Lead Name | Role | Phone | + +------+ + | Kathleen Escobar MD | PCP | | + +------+ + Encounter Details +--------+ + + + + | Date | Type | Department | Care Team | Description | +--------+ + + + + | 06/15/ | Imaging | [facility]GL[facility] | Provider, | | | 2019 | Exam | [facility] | MD Alfredo [address] | | | | | IMAGING [address] | [address] | | | | | [address] [place] | [facility] [place] [address] | | | | | [place] [address] | | | | | | [phone] | | | +--------+ + + + [...] | | 2019 | Visit | | DEBT COLLECTOR [address] | | | | | | [place] | | | | | | [address] | | | | | | | | +--------+ + + + + | 04/11/ | Appointment | Radiology | Shawn Michael | | | 2019 | | | MD [address] | | | | | | [address] [place] | | | | | | [place], [place] [address] | | | | | | [phone] | | | | | | | | +--------+ + + + + | 04/13/ | Office | Cardiology | Shawn Michael | | 2019 | Visit | | MD [address] | | | | | | [address] [place] | | | | | | [place] [address] | | | | | | [phone] | | | | | | | | +--------+ + + + + documented as of this encounter Procedures + +--------+ + + + | Procedure Name | Priori | Date/Time | Associated Diagnosis | Comments | | | ty | | | | + +--------+ + + + | XR ABDOMEN AP | Routin | 07/15/2018 | | Results for this | | | e | 12:00 AM | | procedure are in the | | | | PDT | | results section. | + +--------+ + + + documented in this encounter Results XR Abdomen AP (07/15/2018 12:00 AM PDT) + + | Specimen | [...]
--- OUTSIDE RECORDS SUMMARY | ~2020-03-14 | XMS | Encounter Summary ---
Demographics + + + | Address | [address] | | | [place] [address] | + + + | Home Phone | | + + + | Preferred Language | Unknown | + + + | Marital Status | | + + + | Yarsanism Affiliation | Unknown | + + + | Race | Unknown | + + + | Ethnic Group | Unknown | + + + Author + + + | Author | [facility] | | | and [place] | + + + | Organization | [facility] | | | [...] Team Providers + +------+ + | Care Health Promotion Coordinator Name | Role | Phone | + +------+ + | Candido Link | PCP | | | MD | | | + +------+ + Reason for Visit + + + | Reason | Comments | + + + | Appointment | cancellation | + + + Encounter Details +--------+ + + + + | Date | Type | Department | Care Team | Description | +--------+ + + + + | 07/27/ | Telephone | [facility] | Nikolay, | Appointment | | 2019 | | MEDICINE [address] [place] [address] | MD Candido | (cancellation) | | | | [facility] | [address] [place] [address] | | | | | [place] [address] | [place] [address] | | | | | [phone] | [phone] | | | | | | | [...] | | 2019 | Visit | | RAILROAD SIGNAL TECHNICIAN [address] | | | | | | [place] | | | | | | [address] | | | | | | | | +--------+ + + + + | 04/11/ | Appointment | Radiology | Shawn Michael | | | 2019 | | | MD [address] | | | | | | [address] [place] | | | | | | [place] [address] | | | | | | [phone] | | | | | | | | +--------+ + + + + | 04/13/ | Office | Cardiology | Shawn Michael | | | 2019 | Visit | | MD [address] | | | | | | [address] [place] | | | | | | [place] [address] | | | | | | [phone] | | | | | | | [...]
--- OUTSIDE RECORDS SUMMARY | ~2020-03-14 | XMS | Encounter Summary ---
Demographics + + + | Address | [address] | | | [place] [address] | + + + | Home Phone [...] Team Providers + +------+ + | Care Tax Accountant Name | Role | Phone | + [...] | +--------+ + + + + | 11/29/ | Home Care | [facility] [place] | Nivia Olivarez CNA | HH AIDE REPEAT VISIT | | 2019 | Visit | [place] [address] | | | | | | ST [place] | | | | | | [address] | | | | | | [phone] | | | +--------+ + + + [...] [place] | | | | | | [id number] | | | | | | | | +--------+ + + + + | 04/11/ | Appointment | Radiology | Shawn Michael | | 2019 | | | MD Marcelino [address] | | | | | | [address] | | | | | | [place] [address] | | | | | | [phone] | | | | | | | | +--------+ + + + + | 04/13/ | Office | Cardiology | Shawn Michael | | | 2019 | Visit | | MD Marcelino [address] | | | | | | [address] [place] | | | | | | [place] [address] | | | | | | [phone] | | | | | | | [...] Plan + + | Visit Type - LEAD RAMP AGENT - REPEAT VISIT | | Discipline - [...] provide assistance | | | | shower: pericare: | | with personal care | | | | skin/back care: | | with safe manor. | | | | brush/comb hair | | | | | | dressing: | + + +--------+--------+ + documented in this encounter"
--- OUTSIDE RECORDS SUMMARY | ~2020-03-14 | XMS | Encounter Summary ---
Demographics + + + | Address | [address] | | | [place] [address] | + + + | Home Phone | | + + + | Preferred Language | Unknown | + + + | Marital Status | | + + + | Restoration Affiliation | Unknown | + + + | Race | Unknown | + + + | Ethnic Group | Unknown | + + + Author + + + | Author | [facility] | | | and [place] | + + + | Organization | [facility] | | | [...] Team Providers + +------+ + | Care Restaurant Area Manager Name | Role | Phone | [...] Therapy / | Adhesive | Yana-Tajt | Molina | | | Required | Rehabilitatio | capsulitis | i, | Therapy [address] | | | | n | of right | Candido | [address] | | | | | shoulder | , MD [address] | [place], | | | | | Procedures | [address] | [place] [address] | | | | | PT | [place], | Phone: | | | | | | [place] | [phone] | | | | | | [address] | Fax: | | | | | | Phone: | [phone] | | | | | | [phone] | | | | | | | Fax: | | | | | | | [phone] | | +--------+ + + + + + Reason for Visit + + + | Reason | Comments | + + + | ER Follow-up | Lower abdomen pain, right shoulder pain | + + + Encounter Details +--------+---------+ + + + | Date | Type | Department | Care Team | Description | +--------+---------+ + + + | 11/01/ | Office | [facility] | Nikolay, | 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 Generalized osteoarthritis - HYDROcodone-acetaminophen (NORCO) 7.5-325 mg per tablet; Take 1 tablet by mouth every 6 h ours as needed for Pain. Dispense: 120 tablet; Refill: 0 3. terminal gauger prescription opiate use Recent Review Flowsheet Data Opioid Management Classification 11/01/2019 PDMP Reviewed [place] Pre-adjustment Management Classification Low Management Classification - [...] Flex Sig; Surgeon: Edwin Stoddard MD; Location: [facility] PROCEDURE UNIT HYSTERECTOMY NIRMAL AND BSO TONSILLECTOMY AND ADENOIDECTOMY UPPER GASTROINTESTINAL ENDOSCOPY N/A 06/07/2019 Procedure: EGD; Surgeon: Edwin Stoddard MD; Location: [facility] MEDICAL PROCEDURE UNIT UPPER GASTROINTESTINAL ENDOSCOPY N/A 08/20/2019 Procedure: EGD; Surgeon: John Grimes MD; Location: [facility] MEDICAL PROCEDURE UNIT CURRENT MEDICATIONS Current [...] 1. Parts of this documentwere created using Pixc speech recognition software. As a resu lt, [...] [place] | | | | | | [address] | | | | | | | | +--------+ + + + + | 04/11/ | Appointment | Radiology | Shawn Michael | | 2019 | | | MD Marcelino [address] | | | | | | [address] | | | | | | [place] [address] | | | | | | [phone] | | | | | | | | +--------+ + + + + | 04/13/ | Office | Cardiology | Shawn Michael | | | 2019 | Visit | | MD Marcelino [address] | | | | | | [address] [place] | | | | | | [place] [address] | | | | | | [phone] | | | | | | | [...] osteoarthrosis, unspecified site | + + | detention prescription opiate use | + + | [...]
--- OUTSIDE RECORDS SUMMARY | ~2020-03-14 | XMS | Encounter Summary ---
Demographics + + + | Address | [address] | | | [place] [address] | + + + | Home Phone | | + + + | Preferred Language | Unknown | + + + | Marital Status | | + + + | Buddhism Affiliation | Unknown | + + + | Race | Unknown | + + + | Ethnic Group | Unknown | + + + Author + + + | Author | [facility] | | | and [place] | + + + | Organization | [facility] | | | [...] Team Providers + +------+ + | Care Business Writer Name | Role | Phone | + [...] + | 01/31/ | Home Care | [facility] [place] | Linda Laughlin, | SN TRSFR W/OUT D/C | | 2019 | Visit | [place] [address] | RN | ([place]AS[place]) | | | | ST [place] | | | | | | [address] | | | | | | [phone] | | | +--------+ + + + [...] [place] | | | | | | [id number] | | | | | | | | +--------+ + + + + | 04/11/ | Appointment | Radiology | Shawn Michael | | 2019 | | | MD Marcelino [address] | | | | | | [address] | | | | | | [place] [address] | | | | | | [phone] | | | | | | | | +--------+ + + + + | 04/13/ | Office | Cardiology | Maxood, Shawn | | | 2019 | Visit | | MD Marcelino [address] | | | | | | [address] [place] | | | | | | [place] [address] | | | | | | [phone] | | | | | | | [...] + + + + | Rule out Stanley Difficile | 01/31/2020 7:49 PM | 02/01/2020 12:10 PM | | | PDT | PDT | + + + + documented as of this encounter Home Health Visit - Care Plan + + | Visit Type - SN - OASIS TRANSFER W/OUT D/C | | Discipline - Custodial | + + + + +--------+--------+-------+ + [...] | | | | n | | Custodial | | | | | scheduled/d | [...] | | Active | | | | Custodial | | 020 | | | interventio [...] | | Description: Wound | Management | Schedu | | | | type: Pressure sore | | led | | | | stage 2 Wound [...]
--- OUTSIDE RECORDS SUMMARY | ~2020-03-14 | XMS | Encounter Summary ---
Demographics + + + | Address | [address] | | | [place] [address] | + + + | Home Phone | | + + + | Preferred Language | Unknown | + + + | Marital Status | | + + + | Taoist Affiliation | Unknown | + + + | Race | Unknown | + + + | Ethnic Group | Unknown | + + + Author + + + | Author | [facility] | | | and [place] | + + + | Organization | [facility] | | [...] Team Providers + +------+ + | Care Crutching Contractor Name | Role | Phone | + [...] | 09/23/ | Home Care | [facility] [place] | Timothy, | HH AIDE REPEAT VISIT | | 2018 | Visit | [place] [address] | Tania Garcia CNA | | | | | [place] | | | | | | [address] | | | | | | [phone] | | | +--------+ + + + [...] | | | | | [place] [address] | | | | | | [phone] | | | | | | | | +--------+ + + + + | 04/13/ | Office | Cardiology | Shawn Michael | | | 2019 | Visit | | MD Marcelino [address] | | | | | | [address] | | | | | | [place] [address] | | | | | | [phone] | | | | | | | [...] Plan + + | Visit Type - CHEMIST WATER PURIFICATION - REPEAT VISIT | | Discipline - Home Health Aide | + + + + +--------+--------+ + + | Problem | Description | Start | Status | Goals | Interventio | | | | Date | | | ns | + + +--------+--------+ + + | HH Aide Need | CHEMIST WATER PURIFICATION services | | | 1 goal | [...] | Description: | Health Aide personal | yeol | | instructions per plan of | [...]
--- OUTSIDE RECORDS SUMMARY | ~2020-03-14 | XMS | Encounter Summary ---
Demographics + + + | Address | [address] | | | [place] [address] | + + + | Home Phone | | + + + | Preferred Language | Unknown | + + + | Marital Status | | + + + | Jainism Affiliation | Unknown | + + + | Race | Unknown | + + + | Ethnic Group | Unknown | + + + Author + + + | Author | [facility] | | | and [place] | + + + | Organization | [facility] | | [...] Team Providers + +------+ + | Care Microbiology Soil Scientist Name | Role | Phone | + +------+ + | Candido Lnik | PCP | | | MD | [...] [place] | | | | | | [address] | | | | | | [phone] | | | +--------+ + + + [...] | | | | | [place] [address] | | | | | | [phone] | | | | | | | | +--------+ + + + + | 04/13/ | Office | Cardiology | Shawn Michael | | 2019 | Visit | | MD Marcelino [address] | | | | | | [address] | | | | | | [place] [address] | | | | | | [phone] | | | | | | | [...]
--- OUTSIDE RECORDS SUMMARY | ~2020-03-14 | XMS | Encounter Summary ---
Demographics + + + | Address | [address] | | | [place] [address] | + + + | Home Phone | | + + + | Preferred Language | Unknown | + + + | Marital Status | | + + + | Buddhist Affiliation | Unknown | + + + [...] Team Providers + +------+ + | Care Chain Mortiser Operator Name | Role | Phone | [...] | | | [address] [place] | [facility] [address] | | | | | [place] [address] | | | | | | [phone] | | | +--------+ + + + [...] | | 2019 | Visit | | OUTSIDE PLANT FIELD ENGINEER [address] | | | | | | [place] | | | | | | [address] | | | | | | | | +--------+ + + + + | 04/11/ | Appointment | Radiology | Shawn Michael | | | 2019 | | | MD [address] | | | | | | [address] [place] | | | | | | [place], [place] [address] | | | | | | [phone] | | | | | | | | +--------+ + + + + | 04/13/ | Office | Cardiology | Shawn Michael | | 2019 | Visit | | MD [address] | | | | | | [address] [place] | | | | | | [place] [address] | | | | | | [phone] | | | | | | | | +--------+ + + + + documented as of this encounter Procedures + +--------+ + + + | Procedure Name | Priori | Date/Time | Associated Diagnosis | Comments | | | ty | | | | + +--------+ + + + | CT RENAL STONE WO | Routin | 01/12/2019 | | Results for this | | CONTRAST | e | 12:00 AM | | procedure are in the | | | | PDT | | results section. | + +--------+ + + + documented in this encounter Results CT Renal Stone Wo Contrast (01/12/2019 12:00 AM PDT) + + | Specimen [...]
--- OUTSIDE RECORDS SUMMARY | ~2020-03-14 | XMS | Encounter Summary ---
Demographics + + + | Address | [address] | | | [place] [address] | + + + | Home Phone | | + + + | Preferred Language | Unknown | + + + | Marital Status | | + + + | Uatsdin Affiliation | Unknown | + + + | Race | Unknown | + + + | Ethnic Group | Unknown | + + + Author + + + | Author | [facility] | | | and [place] | + + + | Organization | [facility] | | | [...] Team Providers + +------+ + | Care Coding Tech Name | Role | Phone | + +------+ + | Candido Link | PCP | | | MD | | | + +------+ + Reason for Visit +---------+ + | Reason | Comments | +---------+ + | No Show | | +---------+ + Evaluate & Treat (Emergency) + + + [...] | | | | | anemia | [address] | [address] | | | | | secondary to | , [address] | [place], | | | | | blood loss | [address] | [place] [address] | | | | | (chronic) | [place], | Phone: | | | | | Gastrointest | [place] | [phone] | | | | | inal | [address] | Fax: | | | | | hemorrhage, | Phone: | [phone] | | | | | unspecified | [phone] | | | | | | gastrointest | Fax: | | | | | | inal | [phone] | | | | | | hemorrhage | | | | | | | type | | | | | | | Procedures | | | | | | | LEAF SUCKER OPERATOR OFFICE | | | | | | [...] + + | 03/13/ | Virtual | [facility] | Yana-Lani, | Iron deficiency | | 2020 | Office | GASTROENTEROLOGY | MD Candido | anemia secondary to | | | Visit | [address] [place] | [address] [facility] | blood loss | | | | [address] [place], [place] | [place] [address] | (chronic); | | | | [address] | [phone] | Gastrointestinal | | | | [phone] | | hemorrhage, | | | | | John Grimes, | unspecified | | | | | [address] | gastrointestinal | | | | | [place] | hemorrhage type | | | | | [address] | | | | | | | [...] + + + | Blood Pressure | - | - | | + + + + + | Pulse | - | - | | + + + + + | Temperature | - | - | | + + + + + | Respiratory Rate | - | - | | + + + + + | Oxygen Saturation | - | - | | + [...] + documented in this encounter Progress Notes Amaris Blanco - 03/13/2020 2:30 PM PDTPatient no-showed today's appointment. documented in this enco unter Plan of Treatment +--------+ + + + + | Date | Type | Specialty | Care Team | Description | +--------+ + + + + | 03/23/ | Office | Anticoagulation | García Harris, | | 2019 | Visit | | [place] | | | | | | [place] | | | | | | [address] | | | | | | | | +--------+ + + + + | 04/11/ | Appointment | Radiology | Shawn Michael | | 2019 | | | MD Marcelino [address] | | | | | | [address] | | | | | | [place] [address] | | | | | | [phone] | | | | | | | | +--------+ + + + + | 04/13/ | Office | Cardiology | Shawn Michael | | | 2020 | Visit | | MD Marcelino [address] | | | | | | [address] [place] | | | | | | [place] [address] | | | | | | [phone] | | | | | | | | +--------+ + + + + documented as of this encounter Visit Diagnoses + + | Diagnosis | + + | Iron deficiency anemia secondary to blood loss (chronic) | + + | Gastrointestinal hemorrhage, unspecified [...]
--- OUTSIDE RECORDS SUMMARY | ~2020-03-14 | XMS | Encounter Summary ---
Demographics + + + | Address | [address] | | | [place] [address] | + + + | Home Phone | | + + + | Preferred Language | Unknown | + + + | Marital Status | | + + + | Moravian Affiliation | Unknown | + + + | Race | Unknown | + + + | Ethnic Group | Unknown | + + + Author + + + | Author | [facility] | | | and [place] | + + + | Organization | [facility] | | [...] Team Providers + +------+ + | Care Strap Maker Name | Role | Phone | [...] [place] | | | | | | [address] | | | | | | [phone] | | | +--------+ + + + [...] [place] | | | | | | [address] | | | | | | | | +--------+ + + + + | 04/11/ | Appointment | Radiology | Shawn Michael | | | 2019 | | | MD Marcelino [address] | | | | | | [address] | | | | | | [place] [address] | | | | | | [phone] | | | | | | | | +--------+ + + + + | 04/13/ | Office | Cardiology | Shawn Michael | | | 2020 | Visit | | MD Marcelino [address] | | | | | | [address] | | | | | | [place] [address] | | | | | | [phone] | | | | | | | [...] - OASIS DANIELLA | | Discipline - Custodial | + [...] 020 | | | interventio | | Custodial | | | | | n | [...] 020 | | | interventio | | Custodial | | | | | n | [...] | | Active | | | | Custodial, | | 020 | | | interventio | | Physical Therapy, | | | | | n | | Occupational | | | | | scheduled/d | | Therapy, Home Health | | | | | ocumented | | Jana, Flight Line Service Attendant, | | | | | in this [...]
--- OUTSIDE RECORDS SUMMARY | ~2020-03-14 | XMS | Encounter Summary ---
Demographics + + + | Address | [address] | | | [place] [address] | + + + | Home Phone | | + + + | Preferred Language | Unknown | + + + | Marital Status | | + + + | Samaritan Affiliation | Unknown | + + + | Race | Unknown | + + + | Ethnic Group | Unknown | + + + Author + + + | Author | [facility] | | | and [place] | + + + | Organization | [facility] | | [...] Providers + +------+ + | Care Senior Analyst Developer Name | Role | Phone | [...] + | 03/03/ | Home Care | [facility] [place] | Emily Reynolds, PT | CASE COMMUNICATION | | 2020 | Visit | [place] [address] | | | | | | [place] | | | | | | [address] | | | | | | [phone] | | | +--------+ + + + [...] | | | | | [place] [address] | | | | | | [phone] | | | | | | | | +--------+ + + + + | 04/13/ | Office | Cardiology | Shawn Michael | | 2019 | Visit | | MD Marcelino [address] | | | | | | [address] | | | | | | [place] [address] | | | | | | [phone] | | | | | | | [...]
--- OUTSIDE RECORDS SUMMARY | ~2020-03-14 | XMS | Encounter Summary ---
Demographics + + + | Address | [address] | | | [place] [address] | + + + | Home Phone | | + + + | Preferred Language | Unknown | + + + | Marital Status | | + + + | Hindu Affiliation | Unknown | + + + | Race | Unknown | + + + | Ethnic Group | Unknown | + + + Author + + + | Author | [facility] | | | and [place] | + + + | Organization | [facility] | | [...] Team Providers + +------+ + | Care Needle Loom Weaver Name | Role | Phone | + [...] | +--------+ + + + + | 11/10/ | Telephone | [facility] | Nikolay, | Other | | 2019 | | MEDICINE [address] [place] [address] | MD Candido | | | | | [facility] | [address] [place] [address] | | | | | [place] [address] | [place] [address] | | | | | [phone] | [phone] | | | | | | | [...] | | 2019 | Visit | | INSIDE SALES PROFESSIONAL [address] | | | | | | [place] | | | | | | [address] | | | | | | | | +--------+ + + + + | 04/11/ | Appointment | Radiology | Shawn Michael | | | 2019 | | | MD [address] | | | | | | [address] [place] | | | | | | [place] [address] | | | | | | [phone] | | | | | | | | +--------+ + + + + | 04/13/ | Office | Cardiology | Shawn Michael | | 2019 | Visit | | MD [address] | | | | | | [address] [place] | | | | | | [place] [address] | | | | | | [phone] | | | | | | | [...]
--- OUTSIDE RECORDS SUMMARY | ~2020-03-14 | XMS | Encounter Summary ---
Demographics + + + | Address | [address] | | | [place] [address] | + + + | Home Phone | | + + + | Preferred Language | Unknown | + + + | Marital Status | | + + + | Advent Affiliation | Unknown | + + + [...] Team Providers + +------+ + | Care Barrel Raiser Name | Role | Phone | + [...] | +--------+ + + + + | 09/01/ | Home Care | [facility] [place] | Cynthia, | CASE COMMUNICATION | | 2018 | Visit | [place] [address] | Kristal Murray RN | | | | | [place] | | | | | | [address] | | | | | | [phone] | | | +--------+ + + + [...] [place] | | | | | | [address] | | | | | | | | +--------+ + + + + | 04/11/ | Appointment | Radiology | Shawn Michael | | | 2019 | | | MD [address] | | | | | | [address] | | | | | | [place] [address] | | | | | | [phone] | | | | | | | | +--------+ + + + + | 04/13/ | Office | Cardiology | Shawn Michael | | 2019 | Visit | | Marcelino, MD [address] | | | | | | [address] | | | | | | [place] [address] | | | | | | [phone] | | | | | | | [...]
--- OUTSIDE RECORDS SUMMARY | ~2020-03-14 | XMS | Encounter Summary ---
Demographics + + + | Address | [address] | | | [place] [address] | + + + | Home Phone | | + + + | Preferred Language | Unknown | + + + | Marital Status | | + + + | Episcopalian Affiliation | Unknown | + + + | Race | Unknown | + + + | Ethnic Group | Unknown | + + + Author + + + | Author | [facility] | | | and [place] | + + + | Organization | [facility] | | | and [...] Team Providers + +------+ + | Care Pipe Line Repairer Name | Role | Phone | + +------+ + | Candido Link | PCP | | | MD | | | + +------+ + Reason for Visit + + + | Reason | Comments | + + + | New Patient | detrusor dysfunction | + + + Evaluate & Treat (Routine) + + + + + + + | Status | Reason | Specialty | Diagnoses / | Referred By | Referred To | | | | | Procedures | Contact | Contact | + + + + + + + | Authorized | Specialty | Urology | Diagnoses | | [facility] | | | Services | | Detrusor | Yana[facility]Tajt | Urology [address] | | | Required | | dysfunction | i, | [address] | | | | | | [place] | [place], | | | | | | , [address] | [place] [address] | | | | | | [address] | Phone: | | | | | | [place], | [phone] | | | | | | [place] | Fax: | | | | | | [address] | [phone] | | | | | | Phone: | | | | | | | [phone] | | | | | | | Fax: | | | | | | | [phone] | | + + + + + + + Encounter Details +--------+---------+ + + + | Date | Type | Department | Care Team | Description | +--------+---------+ + + + | 08/09/ | Office | [facility] | Jag Anthony | Recurrent UTI | | 2019 | Visit | [address] | MD Arianna [address] | (Primary Dx); | | | | [place] | [place] | Pyuria; OAB | | | | [id number] | [id number] | (overactive | | | | [phone] | | bladder); Urge | | | | | | incontinence; Stress | | | | | | incontinence; | | | | | | Atrophic vaginitis | +--------+---------+ + + + Social History [...] + + + | Blood Pressure | 124/68 | 08/09/2019 11:14 AM | | | | | PST | | + + + + + | Pulse | 72 | 08/09/2019 11:14 AM | | | | | PST | | + + + + + | Temperature | - | - | | + + + + + | Respiratory Rate | 14 | 08/09/2019 11:14 AM | | | | | PST | | + + + + + | Oxygen Saturation | - | - | | + + + + + | Inhaled Oxygen | - | - | | | Concentration | | | | + + + + + | Weight | 55.5 kg (122 lb 5.7 | 08/09/2019 11:14 AM | | | | oz) | PST | | + + + + + | Height | 165.1 cm (5' 5") | 08/09/2019 11:14 AM | | | | | PST | | + + + + + | Body Mass Index | 20.36 | 08/09/2019 11:14 AM | | | | | PST | | + + + + + documented in this encounter Jag Cano MD - 08/09/2019 11:30 AM PSTFormatting of this note might be differ ent from the original. Chief Complaint Patient presents with New Patient detrusor dysfunction HPI Ángela Crowley is a 89 y.o. female patient of Candido Link MD here toda y for a evaluation for detrusor dysfunction. Over the last year has had progressive urinary symptoms, recurrent UTI Records not available, but son states she has been treated for 5 uti's over the last year LUTS: frequency, urgency, nocturia 3 per night, Occasional hesitancy, Feeling of incomplete emptying, Incontinence: urge incontinence Severity: 2 depends per day, leaks at night Was started on Flomax last year for her symptoms, unclear if this is providing any benefit Multiple medical problems Symptoms of UTI: Altered mental status, Takes lasix Was treated by a Urologist near [place] Assessment Ángela was seen today for new patient. Diagnoses and all orders for this visit: Recurrent UTI - * [facility] Urology - AMB Referral - estradiol (ESTRACE VAGINAL) 0.1 mg/g vaginal cream; Apply 1 gm to vagina daily x 2 we eks then 1gm once weekly Pyuria - POCT Urinalysis - Urinalysis, Microscopic Only, with Culture if Indicated - Culture, Urine; Future OAB (overactive bladder) Urge incontinence Stress incontinence Atrophic vaginitis Plan PVR 297mL- elevated. Will continue to monitor At this time it is unclear the reason why the patient was placed on Flomax. Advised both t he patient and her son to stop the Flomax and evaluate her symptoms. We discussed the importance of good antibiotics stewardship. It is fairly common for post menopausal woman to have asymptomatic bacteriuria. If early symptoms of UTI are smelly urin e or cloudy urine then you probably don't need treatment as these are poor indicators for i nfection. We discussed that with chronic antibiotic use, we interfere with the gut microbio logy as well as breed bacteria that are resistant to oral antibiotics. We then briefly discussed ways to decrease her risk of urinary tract infections. There are several [id number] medications that can decrease her risk of infection. These includ e: D-mannose, probiotics, cranberry pills, lactoferrin, bio defense. We then discussed the role of methenamine and finally the role of estrogen cream. Out of all of the treatment opt ions estrogen cream has been shown to be the most effective. He can decrease a woman's risk for infection by 50%. Urge incontinence: discussed conservative management including, weight loss, diet changes, fluid management. We then discussed medical management including anticholenergics. We disc ussed side effects including dry mouth, constipation, blurry vision and mental status change s. We then discussed bladder botox as well as percutaneous tibial nerve stimulation (PTNS) We will have patient follow-up in 2 weeks for reevaluation. We will also start Estrace cre am. Her postvoid residual of almost 300 mL is slightly elevated. Will reevaluate during fo llow-up. Even though her PVR is somewhat high we may consider in the future using anticholi nergics. 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 Family History: Family History Problem Relation Age of Onset Hypertension Mother Stroke Mother Social History: Social History Socioeconomic History Marital status: Spouse name: Not on file Number of children: Not on file Years of education: Not on file Highest education level: Not on file Tobacco Use Smoking status: Former Smoker Types: Cigarettes Start date: 1944 Last attempt to quit: 1968 Years since quittin.8 Smokeless tobacco: Never Used Substance and Sexual Activity Alcohol use: Never Frequency: Never Allergies Allergen Reactions Percocet [Oxycodone] Unknown Pregabalin Unknown Lyrica Sulfa Antibiotics Unknown Medications: Current Outpatient Medications: acetaminophen (TYLENOL) 325 mg tablet, Take 2 tablets by mouth every 6 hours as needed for Pain (or fever >= 38.6 C (101.5 F))., Disp: 120 tablet, Rfl: albuterol (VENTOLIN HFA) 90 mcg/puff inhaler, Inhale 2 puffs into the lungs every 4 ho urs as needed for Wheezing., Disp: , Rfl: albuterol-ipratropium 2.5-0.5 mg/3 mL SOLN, Take 3 mLs by nebulization 4 times daily f or 90 days., Disp: 1080 mL, Rfl: 0 aspirin 81 mg chewable tablet, Take 1 tablet by mouth Daily., Disp: 30 tablet, Rfl: 3 atorvaSTATin (LIPITOR) 20 mg tablet, Take 20 mg by mouth every morning., Disp: , Rfl: brimonidine (ALPHAGAN) 0.2% ophthalmic solution, Place 1 drop into both eyes 2 times d aily., Disp: , Rfl: 12 budesonide (PULMICORT) 0.5 mg/2 mL nebulizer solution, Take 2 mLs by nebulization 2 ti mes daily. Dx Code J44.90, Disp: 180 mL, Rfl: 3 busPIRone (BUSPAR) 5 mg tablet, Take 1 tablet by mouth 3 times daily as needed., Disp: 60 tablet, Rfl: 2 calcium carbonate (TUMS EX) 750 MG chewable tablet, Take 2 tablets by mouth Daily as n eeded for Heartburn., Disp: , Rfl: CALCIUM CARBONATE PO, Take 1,000 mg by mouth Daily., Disp: , Rfl: carvedilol (COREG) 6.25 mg tablet, Take 1 tablet by mouth 2 times daily (with breakfas t & dinner)., Disp: 180 tablet, Rfl: 1 cetirizine (ZYRTEC) 10 mg tablet, Take 1 tablet by mouth Daily., Disp: 30 tablet, Rfl: 1 Cholecalciferol (VITAMIN D PO), Take 600 Units by mouth every morning., Disp: , Rfl: dicyclomine (BENTYL) 10 mg capsule, Take 10 mg by mouth Daily as needed for GI Upset., Disp: , Rfl: docusate sodium (COLACE) 250 MG capsule, Take 250 mg by mouth every morning. Hold for loose stools, Disp: , Rfl: dorzolamide (TRUSOPT) 2% ophthalmic solution, Place 1 drop into both eyes 2 times patrice y., Disp: , Rfl: 12 estradiol (ESTRACE VAGINAL) 0.1 mg/g vaginal cream, Apply 1 gm to vagina daily x 2 wee ks then 1gm once weekly, Disp: 42.5 g, Rfl: 3 famotidine (PEPCID) 40 MG tablet, Take 1 tablet by mouth nightly., Disp: 90 tablet, Rf l: 1 ferrous sulfate 325 mg tablet, Take 1 tablet by mouth daily (with breakfast)., Disp: 9 0 tablet, Rfl: 3 fluticasone (FLONASE) 50 mcg/nasal spray, 1 spray by Nasal route Daily as needed for A llergies., Disp: , Rfl: furosemide (LASIX) 20 mg tablet, Take 1 tablet by mouth Daily., Disp: 90 tablet, Rfl: 1 HYDROcodone-acetaminophen (NORCO) 7.5-325 mg per tablet, Take 1 tablet by mouth every 8 hours as needed for Pain., Disp: 25 tablet, Rfl: 0 latanoprost (XALATAN) 0.005% ophthalmic solution, Place 1 drop into both eyes nightly. , Disp: , Rfl: 12 loperamide (IMODIUM A-D) 2 MG tablet, Take 2 mg by mouth Twice daily as needed for Di arrhea., Disp: , Rfl: metoprolol succinate (TOPROL-XL) 25 mg 24 hr tablet, Take 1 tablet by mouth nightly., Disp: 90 tablet, Rfl: 1 mirtazapine (REMERON) 7.5 MG tablet, Take 1 tablet by mouth nightly., Disp: 30 tablet, Rfl: 3 Multiple Vitamins-Minerals (PRESERVISION AREDS 2) CAPS, Take 1 capsule by mouth 2 time s daily., Disp: , Rfl: nitroglycerin (NITROSTAT) 0.4 mg SL tablet, Place 0.4 mg under the tongue every 5 dandre annetta as needed for Chest pain., Disp: , Rfl: oxygen, Inhale 3 L into the lungs continuous. ALETEHA: 99 months., Disp: 1 Container, Rfl: 2 pantoprazole (PROTONIX) 40 mg tablet, Take 1 tablet by mouth every morning (before nioklay akfast)., Disp: 90 tablet, Rfl: 1 Polyethylene Glycol 3350 POWD, Take 17 g by mouth Daily as needed for Constipation., D isp: , Rfl: polyvinyl alcohol (LIQUITEARS) 1.4% ophthalmic solution, Place 2 drops into both eyes every morning., Disp: , Rfl: predniSONE (DELTASONE) 10 mg tablet, Take 1 tablet by mouth Daily for 90 days. Patient to increase to 40mg for 5 days for COPD exacerbation, then return to 10mg daily. (Patient t aking differently: Take 20 mg by mouth Daily. Patient to increase to 40mg for 5 days for BOX TOE BUFFER D exacerbation, then return to 10mg daily.), Disp: 110 tablet, Rfl: 3 Respiratory Therapy Supplies MISC, Replacement O2 mask. Please evaluate and provide an O2 mask that is more useful to the patient. Duration: Lifetime Dx: COPD, severe J44.9, Disp : 1 each, Rfl: 0 senna (SENNA) 8.6 mg tablet, Take 1 tablet by mouth Daily as needed for Constipation., Disp: , Rfl: sodium chloride (OCEAN) 0.65% nasal spray, 2 sprays by Each Nare route every 2 hours a s needed for Nasal Dryness., Disp: , Rfl: 0 UNABLE TO FIND, Nebulizer Machine with accessories ALETHEA: 99 months., Disp: 1 each, Rfl: 0 ROS Objective BP 124/68 | Pulse 72 | Resp 14 | Ht 1.651 m (5' 5") | Wt 55.5 kg (122 lb 5.7 oz) | BMI 20.36 kg/m General Appearance: Alert, cooperative, no distress, appears stated age, frail appearing Head: Normocephalic, without obvious abnormality, atraumatic Eyes: conjunctiva/corneas clear, EOM's intact Throat: Lips, mucosa, and tongue normal; no gross deformities, mmm Neck: Supple, symmetrical, no adenopathy Lungs: Regular, unlabored breathing MS No CVA tenderness, no spinal tenderness, no scoliosis present Abdomen: Soft, non-tender, no masses Extremities: Extremities normal, atraumatic, no cyanosis, clubbing, or edema Pulses: Radial pulses 2+ and symmetric Skin: Warm and dry Lymph nodes: Cervical and supraclavicular nodes normal Neurologic: Slow unsteady gait, CN 2-12 grossly intact; significantly delayed get up and go test; decreased insurance risk analyst strength bilaterally Data: REVIEW OF SYSTEMS: [] Marked All Negative Constitutional Symptoms: [] Fever [x] Chills [] Headache [x] Change in appetite [x] Change in weight [x] Change in energy [] Other: Neurological: [] Tremors [x] Dizzy Spells [x] Numbness/Tingling [] Seizures [] Other: Endocrine: [] Excessive thirst [x] Too hot [x] Too cold [x] Tired/Sluggish Gastrointestinal: [x] Abdominal pain [] Nausea/Vomiting [x] Indigestion/heartburn [] Change in st ool size [] Change in stool shape [] Change in stool color [] Pain with swallowi ng [] Other: Cardiovascular: [] Chest Pain [] Rapid heart rate [] High blood pressure [] Other: Integumentary: [] Skin rash [] Boils [] Persistent itch [] Other: Musculoskeletal: [x] Neck Pain [x] Joint swelling/pain [x] Back pain [x] Bone pain [] Other: Respiratory: [x] Wheezing [] Frequent cough [x] Shortness of breath [] Other: Hematologic/Lymphatic: [] Swollen glands [] Blood clotting issues [] Prior blood transfusions []Other: Psychologic: Are you generally satisfied with your life? yes Do you feel severely depressed? no Have you considered suicide? no Habits: Do you smoke? no Results for orders placed or performed in visit on 08/09/19 Culture, Urine Result Value Ref Range Culture 50,000 CFU/ml Mixed Gram Positive [place] Urinalysis, Microscopic Only, with Culture if Indicated Result Value Ref Range WBC UA 10-15 (A) 0 - 2 /HPF RBC UA 2-5 (A) 0 - 2 /HPF SQUAMOUS EPITHELIAL UA 25-50 (A) 0 - 2 /LPF BACTERIA UA 1+ (A) Negative /HPF MUCUS UA Present (A) Negative /LPF BUDDING YEAST UA Few (A) Negative URINE COMMENT Urine Culture Set Up POCT Urinalysis Result Value Ref Range Color, UA, POC Yellow Yellow, Light Yellow Clarity, UA, POC Slightly Cloudy Glucose, UA, POC Negative Negative Bilirubin, UA, POC Negative Negative Ketones, UA, POC Negative Negative, 100 mg/dL Specific [place], UA, POC 1.015 1.001 - 1.030 Blood, UA, POC Negative Negative pH, UA, POC 6.0 5.0, 6.0, 7.0, 8.0, 5.5, 6.5, 7.5 Protein, UA, POC Negative Negative Urobilinogen, UA, POC 0.2 0.2, Negative, Normal, < 0.2 mg/dL, 1 mg/dL, < 0.2 E.U./dl, 1.0 E.U./dL, 0.2 mg/dL Nitrite, UA, POC Negative Negative Leukocyte Esterase, UA, POC Moderate (A) Negative Reducing Substances, Urine Ictotest Remark Lab Results Component Value Date CREA 0.74 07/24/2019 Candido Link MD's notes were reviewed in clinic today. Return in about 2 weeks (around 08/23/2019).. This document was generated in part using voice recognition software. Frequent wrong word or sound-alike substitutions may have occurred due to the inherent limitations of the voice recognition software. Although I have attempted to edit the content, I have not thoroughly proofread this note, and ground nuclear weapons assembly officer errors are very likely to occur. CC: Candido Link MD documented in this encounter Plan of Treatment +--------+ + + + + | Date | Type | Specialty | Care Team | Description | +--------+ + + + + | 03/23/ | Office | Anticoagulation | García Harris, | | | 2019 | Visit | | [facility] [address] | | | | | | [place] | | | | | | [address] | | | | | | | | +--------+ + + + + | 04/11/ | Appointment | Radiology | Shawn Michael | | | 2019 | | | MD [address] | | | | | | [address] [place] | | | | | | [place] [address] | | | | | | [phone] | | | | | | | | +--------+ + + + + | 04/13/ | Office | Cardiology | Shawn Michael | | | 2019 | Visit | | MD [address] | | | | | | [address] [place] | | | | | | [place] [address] | | | | | | [phone] | | | | | | | | +--------+ + + + + documented as of this encounter Procedures + +--------+ + + + | Procedure Name | Priori | Date/Time | Associated Diagnosis | Comments | | | ty | | | | + +--------+ + + + | URINALYSIS, | Routin | 08/09/2019 | Pyuria | Results for this | | MICROSCOPIC ONLY, | e | 11:16 AM | | procedure are in the | | WITH CULTURE IF | | PST | | results section. | | INDICATED | | | | | + +--------+ + + + | POCT URINALYSIS, | Routin | 08/09/2019 | Pyuria | Results for this | | AUTO WITH CONF | e | 11:16 AM | | procedure are in the | | | | PST | | results section. | + +--------+ + + + | CULTURE, URINE | Routin | 08/09/2019 | Pyuria | Results for this | | | e | 11:16 AM | | procedure are in the | | | | PST | | results section. | + +--------+ + + + | IMAGING REPORT - | | 08/09/2019 | | Results for this | | EXTERNAL SCAN | | 12:00 AM | | procedure are in the | | | | PST | | results section. | + +--------+ + + + documented in this encounter Results Culture, Urine (08/09/2019 11:16 AM PST) + + + + + + | Component | Value | Ref Range | Performed | Pathologist | | | | | At | Signature | + + + + + + | Culture | 50,000 CFU/ml Mixed Gram | | [facility] | | | | Positive FloraComment: | | [facility] | | | | Suggests contamination | | MEDICAL | | | | with urogenital or skin | | CENTER - | | | | kylee.No further work-up | | LABORATORY | | | | to follow. | | | | + + + [...] | [address] | [place], [place] | [phone] | | [facility] | | [address] | | | - LABORATORY | | | | + + + + + Urinalysis, Microscopic Only, with Culture if Indicated (08/09/2019 11:16 AM PST) + + + + + + | Component | Value | Ref Range | Performed | Pathologist | | | | | At | Signature | + + + + + + | White Blood | 10-15 (A) | 0 - 2 /HPF | [...] + + + + | Squamous | 25-50 (A) | 0 - 2 /LPF | [...] | Budding | Few (A) | Negative | [facility] | | | Yeast, | | | [facility] | | | Urine | | | MEDICAL | | | | | | CENTER - | | | | | | LABORATORY | | + + + + + + | Urine | Urine Culture Set Up | | [facility] | | | Comment | | | [facility] | | [...] + + | BRITTANY MAZA. | [address] | [place] | [phone] | | [facility] | | [address] | | | - LABORATORY | | | | + + + + + POCT Urinalysis (08/09/2019 11:16 AM PST) + + + + + + | Component | Value | Ref Range | Performed | Pathologist | | | | | At | Signature | + + + + + + | Color, UA, | Yellow | Yellow, Light | | | | POC | | Yellow | | | + + + + + + | Clarity, | Slightly Cloudy | | | | | UA, POC | | | | | + + + + + + | Glucose, | Negative | Negative | | | | UA, POC | | | | | + + + + + + | Bilirubin, | Negative | Negative | | | | UA, POC | | | | | + + + + + + | Ketones, | Negative | Negative, 100 | | | | UA, POC | | mg/dL | | | + + + + + + | Specific | 1.015 | 1.001 - 1.030 | | | | [place], | | | | | | UA, POC | | | | | + + + + + + | Blood, UA, | Negative | Negative | | | | POC | | | | | + + + + + + | pH, UA, POC | 6.0 | 5.0, 6.0, 7.0, | | | | | | 8.0, 5.5, 6.5, | | | | | | 7.5 | | | + + + + + + | Protein, | Negative | Negative | | | | UA, POC | | | | | + + + + + + | Urobilinoge | 0.2 | 0.2, Negative, | | | | n, UA, POC | | Normal, < 0.2 | | | | | | mg/dL, 1 mg/dL, | | | | | | < 0.2 E.U./dl, | | | | | | 1.0 E.U./dL, | | | | | | 0.2 mg/dL | | | + + + + + + | Nitrite, | Negative | Negative | | | | UA, POC | | | | | + + + + + + | Leukocyte | Moderate (A) | Negative | | | | Esterase, | | | | | | UA, POC | | | | | + + + + + + | Reducing | | | | | | Substances, | | | | | | Urine | | | | | + + + + + + | Bilirubin | | | | | | Confirmatio | | | | | | n by | | | | | | Ictotest, | | | | | | Urine | | | | | + + + + + + | Remark | | | | | + + + + + + + + | Specimen | + + | Urine | + + IMAGING REPORT - EXTERNAL SCAN (08/09/2019 12:00 AM PST) + + + | Narrative | Performed At | + + + | Ordered by an | | | unspecified provider. | | + + + documented in this encounter Visit Diagnoses + + | Diagnosis | + + | Recurrent UTI - Primary Urinary tract infection, site not specified | + + | Pyuria Other nonspecific finding on examination of urine | + + | OAB (overactive bladder) Hypertonicity of bladder | + + | Urge incontinence | + + | Stress incontinence | + + | Atrophic vaginitis Postmenopausal atrophic vaginitis | + + documented in this encounter Additional Health Concerns + + + + | Infection | Noted Time | Resolved Time | + + + + | Methicillin-resistant Staphylococcus aureus | 06/08/2019 9:39 AM | | | | PDT | | + + + + documented as of this encounter
--- OUTSIDE RECORDS SUMMARY | ~2020-03-14 | XMS | Encounter Summary ---
Demographics + + + | Address | [address] | | | [place] [address] | + + + | Home Phone | | + + + | Preferred Language | Unknown | + + + | Marital Status | | + + + | Moravian Affiliation | Unknown | + + + | Race | Unknown | + + + | Ethnic Group | Unknown | + + + Author + + + | Author | [facility] | | | and [place] | + + + | Organization | [facility] | | | [...] Team Providers + +------+ + | Care Supervisor Meter Shop Name | Role | Phone | + [...] | +--------+ + + + + | 06/24/ | Home Care | [facility] [place] | Bernardo Souza | OT REPEAT VISIT | | 2018 | Visit | [facility] [address] | [place], [place] | | | | | [place] | | | | | | [address] | | | | | | [phone] | | | +--------+ + + + [...] + + + | Blood Pressure | 134/68 | 06/24/2019 2:13 PM | | | | | PDT | | + + + + + | Pulse | 101 | 06/24/2019 2:13 PM | | | | | PDT | | + + + + + | Temperature | 37.1 C (98.8 F) | 06/24/2019 2:13 PM | | | | | PDT | | + + + + + | Respiratory Rate | - | - | | + + + + + | Oxygen Saturation | 98% | 06/24/2019 2:13 PM | | | | | PDT [...] | | | | | [place] [address] | | | | | | [phone] | | | | | | | | +--------+ + + + + | 04/13/ | Office | Cardiology | Shawn Michael | | | 2019 | Visit | | MD Marcelino [address] | | | | | [address] [place] | | | | | | [place] [address] | | | | | | [phone] | | | | | | | [...] + + | HH SHARED FALLS | | | | 1 goal | 1 problem | | Disciplines: | | 06/13/20 | Active | linked to | | | Half-Way, | | 19 | | scheduled/d | interventio | | Occupational Therapy | | | | ocumented | n [...] | | + + +--------+-------+ + | Reduce fall risk | HH SHARED FALLS | | No | OT provided fall | | Description: | | Ongoin | | prevention education | | Patient/Family will | | g, | | | | verbalize | | progre | | | | understanding of | | ssing | | | | fall prevention | | | | | | stratagies within 2 | | | | | | weeks | | | | | + + +--------+-------+ + + + +--------+--------+ + | Intervention | Associated | Status | Varian | Visit Notes | | | Problem/Goal | | ce | | + + +--------+--------+ + | Teaching - fall | Problem: HH SHARED | | | OT provided fall | | prevention | FALLS | Comple | | prevention education and | | Description: | | yoel | | handout to the patient | | Provide fall | | | | and caregiver. | | prevention education | | | | | | and handout. | | | | | + + +--------+--------+ + documented in this encounter"
--- OUTSIDE RECORDS SUMMARY | ~2020-03-14 | XMS | Encounter Summary ---
Demographics + + + | Address | [address] | | | [place] [address] | + + + | Home Phone | | + + + | Preferred Language | Unknown | + + + | Marital Status | | + + + | Zoroastrian Affiliation | Unknown | + + + [...] Team Providers + +------+ + | Care Aadc Plans Staff Officer Name | Role | Phone | + +------+ + | Candido Link | PCP | | | MD | | | + +------+ + Reason for Visit + + + | Reason | Comments | + + + | ED Follow-up | | + + + Encounter Details +--------+ + + + + | Date | Type | Department | Care Team | Description | +--------+ + + + + | 08/02/ | Telephone | [facility] | Nikolay, | ED Follow-up | | 2019 | | MEDICINE [address] [place] [address] | MD Candido | | | | | [facility] | [address] [place] [address] | | | | | [place] [address] | [place] [address] | | | | | [phone] | [phone] | | | | | | | [...] | | 2019 | Visit | | RECYCLING MANAGER [address] | | | | | | [place] | | | | | | [address] | | | | | | | | +--------+ + + + + | 04/11/ | Appointment | Radiology | Shawn Michael | | | 2019 | | | MD [address] | | | | | | [address] [place] | | | | | | [place] [address] | | | | | | [phone] | | | | | | | | +--------+ + + + + | 04/13/ | Office | Cardiology | Shawn Michael | | | 2019 | Visit | | MD [address] | | | | | | [address] [place] | | | | | | [place] [address] | | | | | | [phone] | | | | | | | [...]
--- OUTSIDE RECORDS SUMMARY | ~2020-03-14 | XMS | Encounter Summary ---
Demographics + + + | Address | [address] | | | [place] [address] | + + + | Home Phone | | + + + | Preferred Language | Unknown | + + + | Marital Status | | + + + | Latter Day Affiliation | Unknown | + + + [...] Providers + +------+ + | Care Assistant Director Of Financial Aid Name | Role | Phone | + [...] | 09/20/ | Home Care | [facility] [place] | Bernardo Souza | OT REPEAT VISIT | | 2018 | Visit | [facility] [address] | [place], [place] | | | | | [place] | | | | | | [address] | | | | | | [phone] | | | +--------+ + + + [...] + + + | Blood Pressure | 124/50 | 09/20/2019 3:16 PM | | | | | PST | | + + + + + | Pulse | 97 | 09/20/2019 3:16 PM | | | | | PST | | + + + + + | Temperature | 36.7 C (98.1 F) | 09/20/2019 3:16 PM | | | | | PST | | + + + + + | Respiratory Rate | - | - | | + + + + + | Oxygen Saturation | 96% | 09/20/2019 3:16 PM | | | | | PST [...] | | | | | [place] [address] | | | | | | [phone] | | | | | | | | +--------+ + + + + | 04/13/ | Office | Cardiology | Shawn Michael | | | 2019 | Visit | | MD Marcelino [address] | | | | | | [address] [place] | | | | | | [place] [address] | | | | | | [phone] | | | | | | | [...] interventio | | Occupational Therapy | | 2018 | | scheduled/d [...] | interventio | | Disciplines: | | 2018 | | scheduled/d | [...]
--- OUTSIDE RECORDS SUMMARY | ~2020-03-14 | XMS | Encounter Summary ---
Demographics + + + | Address | [address] | | | [place] [address] | + + + | Home Phone | | + + + | Preferred Language | Unknown | + + + | Marital Status | | + + + | Hinduism Affiliation | Unknown | + + + [...] Team Providers + +------+ + | Care Capture Manager Name | Role | Phone | [...] + + | 02/08/ | Telephone | [facility] | Nikolay, | Medication Refill | | 2019 | | MEDICINE [address] | MD Candido | | | | | [facility] | [address] [place] [address] | | | | | [place] [address] | [place] [address] | | | | | [phone] | [phone] | | | | | | | [...] | | 2019 | Visit | | CONCHE OPERATOR [address] | | | | | | [place] | | | | | | [address] | | | | | | | | +--------+ + + + + | 04/11/ | Appointment | Radiology | Shawn Michael | | | 2019 | | | MD [address] | | | | | | [address] [place] | | | | | | [place] [address] | | | | | | [phone] | | | | | | | | +--------+ + + + + | 04/13/ | Office | Cardiology | Shawn Michael | | | 2019 | Visit | | MD [address] | | | | | | [address] [place] | | | | | | [place] [address] | | | | | | [phone] | | | | | | | [...]
--- OUTSIDE RECORDS SUMMARY | ~2020-03-14 | XMS | Encounter Summary ---
Demographics + + + | Address | [address] | | | [place] [address] | + + + | Home Phone | | + + + | Preferred Language | Unknown | + + + | Marital Status | | + + + | Presybeterian Affiliation | Unknown | + + + | Race | Unknown | + + + | Ethnic Group | Unknown | + + + Author + + + | Author | [facility] | | | and [place] | + + + | Organization | [facility] | | [...] Team Providers + +------+ + | Care Lithographic Press Operator Name | Role | Phone | [...] | +--------+ + + + + | 10/05/ | Home Care | [facility] [place] | Sam Quintanilla, | PT REPEAT VISIT | | 2019 | Visit | [place] [address] | PUBLICATION MANAGER [address] | | | | | [place] | [place] | | | | | [address] | [address] | | | | | [phone] | | | +--------+ + + + [...] + +---------+ + + | Pulse | 82 | 10/05/2019 10:11 AM | | | | | PST | | + +---------+ + + | Temperature | - | - | | + +---------+ + + | Respiratory Rate | - | - | | + +---------+ + + | Oxygen Saturation | 96% | 10/05/2019 10:11 AM | on 2 lit O2 | [...] | | 2019 | Visit | | HEAVY EQUIPMENT MECHANIC [address] | | | | | | [place] | | | | | | [address] | | | | | | | | +--------+ + + + + | 04/11/ | Appointment | Radiology | Shawn Michael | | | 2019 | | | MD [address] | | | | | | [address] [place] | | | | | | [place] [address] | | | | | | [phone] | | | | | | | | +--------+ + + + + | 04/13/ | Office | Cardiology | Shawn Michael | | | 2019 | Visit | | MD [address] | | | | | | [address] [place] | | | | | | [place] [address] | | | | | | [phone] | | | | | | | [...] | Problem: HH PT | | | PUBLICATION MANAGER worked on | | Description: | IMPAIRED GAITGoal: | Comple | | improving pt's gait | | Evaluate and | HH PT GAIT/STAIRS | yoel | | stability through | | instruct patient | | | | therapeutic activities | | and/or caregiver in | | | | progression including: | | gait training using | | | | side stepping, walking | | 4-wheeled walker no | | | | backward, gaze | | weight bearing | | | | stabilization while | | restrictions. | | | | walking (R/L and | | | | | | up/down) and single limb | | | | | | stance . Tasks | | | | | | performed with 4ww and | | | | | | SBA to prevent falls. | + + +--------+--------+ + | PT transfer | Problem: HH PT | | | Used STS as a | | training | IMPAIRED | Comple | | functional task specific | | Description: | TRANSFERSGoal: HH PT | yoel | | training exercise for | | [...] | | | | | | completed 5 reps from | | | | | | normal surface with use | | | | | | of hands. knee pain | | | | | | limited transfer | | | | | | training | + + +--------+--------+ + | Instruct in Fall | Problem: SHARED | | | PUBLICATION MANAGER educated pt on | | Prevention | [...]
--- OUTSIDE RECORDS SUMMARY | ~2020-03-14 | XMS | Encounter Summary ---
Demographics + + + | Address | [address] | | | [place] [address] | + + + | Home Phone | | + + + | Preferred Language | Unknown | + + + | Marital Status | | + + + | Pentecostal Affiliation | Unknown | + + + | Race | Unknown | + + + | Ethnic Group | Unknown | + + + Author + + + | Author | [facility] | | | and [place] | + + + | Organization | [facility] | | | and [...] Team Providers + +------+ + | Care Checkman Name | Role | Phone | + +------+ + | Candido Link | PCP | | | MD | | | + +------+ + Reason for Visit + + + | Reason | Comments | + + + | Medication Prior | | | Authorization | | + + + Encounter Details +--------+ + + + + | Date | Type | Department | Care Team | Description | +--------+ + + + + | 01/03/ | Telephone | [facility] | Lina Correa | Medication Prior | | 2020 | | PULMONARY [address] | MD Jan [address] | Authorization | | | | [place], | [address] [place] | | | | | [place] [address] | [place] [address] | | | | | [phone] | [phone] | | | | | | | [...] | | 2019 | Visit | | DISEASE CASE MANAGER RN [address] | | | | | | [place] | | | | | | [address] | | | | | | | | +--------+ + + + + | 04/11/ | Appointment | Radiology | Shawn Michael | | | 2019 | | | MD [address] | | | | | | [address] [place] | | | | | | [place] [address] | | | | | | [phone] | | | | | | | | +--------+ + + + + | 04/13/ | Office | Cardiology | Shawn Michael | | | 2019 | Visit | | MD [address] | | | | | | [address] [place] | | | | | | [place] [address] | | | | | | [phone] | | | | | | | [...]
--- OUTSIDE RECORDS SUMMARY | ~2020-03-14 | XMS | Encounter Summary ---
Demographics + + + | Address | [address] | | | [place] [address] | + + + | Home Phone [...] Team Providers + +------+ + | Care Proof Carrier Name | Role | Phone | + [...] | +--------+ + + + + | 10/14/ | Home Care | [facility] [place] | Timothy, | HH AIDE REPEAT VISIT | | 2020 | Visit | [facility] [address] | Tania Garcia [facility] | | | | | [place] | | | | | | [address] | | | | | | [phone] | | | +--------+ + + + [...] | | | | | [place] [address] | | | | | | [phone] | | | | | | | | +--------+ + + + + | 04/13/ | Office | Cardiology | Shawn Michael | | | 2019 | Visit | | MD Marcelino [address] | | | | | | [address] | | | | | | [place] [address] | | | | | | [phone] | | | | | | | [...] Plan + + | Visit Type - SOLUTION DESIGN ENGINEER - REPEAT VISIT | | Discipline - Home Health Aide | + + + + +--------+--------+ + + | Problem | Description | Start | Status | Goals | Interventio | | | | Date | | | ns | + + +--------+--------+ + + | HH Aide Need | SOLUTION DESIGN ENGINEER services | | | 1 goal | 3 goal | | Disciplines: | needed | | Active | linked to | interventio | | [facility], | | 019 | | scheduled/d | [...] patient with | Health Aide personal | yeol | | pre the plan of care: [...]
--- OUTSIDE RECORDS SUMMARY | ~2020-03-14 | XMS | Encounter Summary ---
Demographics + + + | Address | [address] | | | [place] [address] | + + + | Home Phone | | + + + | Preferred Language | Unknown | + + + | Marital Status | | + + + | Muslim Affiliation | Unknown | + + + | Race | Unknown | + + + | Ethnic Group | Unknown | + + + Author + + + | Author | [facility] | | | and [place] | + + + | Organization | [facility] | | | [...] Team Providers + +------+ + | Care Heating Engineer Name | Role | Phone | + +------+ + | Kathleen Escobar MD | PCP | | + +------+ + Reason for Referral Home Health Care (Routine) +--------+ + + + + + | Status | Reason | Specialty | Diagnoses / | Referred By | Referred To | | | | | Procedures | Contact | Contact | +--------+ + + + + + | Closed | Specialty | Home Health | Diagnoses | Cochran, | Prov Hh | | | Services | Services | Acute on | Bruce Coe MD | [place] | | | Required | | chronic | [address] | | | | | diastolic | [address] | [address] [place] | | | | | heart | [place], | [place] | | | | | failure | [place] [address] | [address] | | | | | (HCC) | Phone: | Phone: | | | | | Procedures | [phone] | [phone] | | | | | 06/13/19 SN | Fax: | Fax: | | | | | PT OT CHUMMER | [phone] | [phone] | +--------+ + + + + + Reason for Visit +--------+ + | Reason | Comments | +--------+ + | Fall | | +--------+ + Auth/Cert +--------+--------+ + + + + [...] | +--------+ + + + + | 05/31/ | Hospital | [facility] | Mir Lux | Fall, initial | | 2019 - | Encounter | [facility] | Kevin Urbano MD | encounter (Primary | | | | [address] [place] | [address] | Dx); Elevated | | 06/12/ | | [place] [address] | [place] | troponin I level; | | 2019 | | [phone] | [id number] | Closed nondisplaced | | | | | | fracture of distal | | | | | Sam [facility]adares [facility], | phalanx of lesser | | | | | [address] | toe of left foot, | | | | | [place] | initial encounter; | | | | | [address] | Weakness; Anemia, | | | | | [phone] | unspecified type; | | | | | | Centrilobular | | | | | | emphysema (HCC); | | | | | | Acute on chronic | | | | | | heart failure, | | | | | | unspecified heart | | | | | | failure type (HCC); | | | | | | Type 2 myocardial | | | | | | infarction (HCC); | | | | | | S/p TAVR | | | | | | (transcatheter | | | | | | aortic valve | | | | | | replacement), | | | | | | bioprosthetic; | | | | | | Esophageal | | | | | | dysphagia; | | | | | | Diverticulitis; | | | | | | Acute metabolic | | | | | | encephalopathy; | | | | | | Acute on chronic | | | | | | diastolic heart | | | | | | failure (HCC) | +--------+ + + + [...] + + + | Blood Pressure | 155/72 | 06/12/2019 7:51 AM | | | | | PDT | | + + + + + | Pulse | 96 | 06/12/2019 9:01 AM | | | | | PDT | | + + + + + | Temperature | 37.2 C (98.9 F) | 06/12/2019 7:51 AM | | | | | PDT | | + + + + + | Respiratory Rate | 18 | 06/12/2019 9:01 AM | | | | | PDT | | + + + + + | Oxygen Saturation | 100% | 06/12/2019 9:01 AM | | | | | PDT | | + + + + + | Inhaled Oxygen | - | - | | | Concentration | | | | + + + + + | Weight | 56.1 kg (123 lb 10.9 | 06/12/2019 5:16 AM | | | | oz) | PDT | | + + + + + | Height | 165.1 cm (5' 5") | 05/31/2019 7:00 PM | | | | | PDT | | + + + + + | Body Mass Index | 20.58 | 05/31/2019 7:00 PM | | | | | PDT | | + + + + + documented in this encounter Discharge Summaries Bruce Cochran MD - 06/12/2019 2:06 PM PDTFormatting of this note might be different fro m the original. [place] HOSPITALIST DISCHARGE SUMMARY Pt. Name/Age/: Ángela Crowley 88 y.o. 1930 Date of Admission: 05/31/2019 Date of Discharge: 06/12/2019 Admitting Physician: Efraín Nesbitt MD Primary Care Provider: Kathleen Escobar MD Discharging Physician: Brcue Cochran MD DISCHARGE DIAGNOSES: Active Hospital Problems Diagnosis Heart failure with acute decompensation, type unknown Closed nondisplaced fracture of proximal phalanx of lesser toe of left foot Unwitnessed fall Myocardial infarction type 2 Generalized anxiety disorder Hypertension Moderate protein-calorie malnutrition Cerebral atherosclerosis longterm (current) use of anticoagulants - clopidogrel (PLAVIX) COPD (chronic obstructive pulmonary disease) Pulmonary hypertension, mild Anemia Coronary artery disease involving otoe-[place]ouria coronary artery of otoe-[place]ou[place] heart without angina pectoris 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 DISCHARGE MEDICATIONS: Discharge Medications New Medications Details amoxicillin-clavulanate 875-125 mg per tablet Take 1 tablet by mouth 2 times daily for 7 doses. Indications: Diverticulitis of the Gastr ointestinal Tract aka: AUGMENTIN Changed Medications Details dicyclomine 10 mg capsule Take 1 capsule by mouth Daily as needed. What changed: when to take this reasons to take this aka: BENTYL Unchanged Medications Details albuterol-ipratropium 2.5-0.5 mg/3 mL Soln Take 3 mLs by nebulization every 4 hours as needed for Increased Work of Breathing. aspirin 81 mg chewable tablet Take 81 mg by mouth Daily. atorvaSTATin 20 mg tablet Take 20 mg by mouth every morning. aka: LIPITOR brimonidine 0.2% ophthalmic solution Place 1 drop into both eyes 2 times daily. aka: ALPHAGAN BROVANA 15 MCG/2ML Nebu Generic drug: arformoterol Take 15 mcg by nebulization 2 times daily. budesonide 0.5 mg/2 mL nebulizer solution Take 0.5 mg by nebulization 2 times daily. aka: PULMICORT busPIRone 10 MG tablet Take 10 mg by mouth Daily. aka: BUSPAR CALCIUM PO Take 1,000 mg by mouth Daily. carvedilol 6.25 mg tablet Take 6.25 mg by mouth 2 times daily (with breakfast & dinner). aka: COREG cetirizine 10 mg tablet Take 10 mg by mouth Daily. aka: zyrTEC docusate sodium 250 MG capsule Take 250 mg by mouth Daily as needed for Constipation. aka: COLACE dorzolamide 2% ophthalmic solution Place 1 drop into both eyes 2 times daily. aka: TRUSOPT ferrous sulfate 325 mg tablet Take 325 mg by mouth daily (with breakfast). fluticasone 50 mcg/nasal spray 1 spray by Nasal route Daily as needed for Allergies. aka: FLONASE furosemide 20 mg tablet Take 20 mg by mouth Daily. aka: LASIX HYDROcodone-acetaminophen 7.5-325 mg per tablet Take 1 tablet by mouth 4 times daily as needed for Pain. aka: NORCO latanoprost 0.005% ophthalmic solution Place 1 drop into both eyes every morning. aka: XALATAN loperamide 2 MG tablet Take 2 mg by mouth Twice daily as needed for Diarrhea. aka: IMODIUM A-D metoprolol succinate 25 mg 24 hr tablet Take 25 mg by mouth nightly. aka: TOPROL-XL multivitamin tablet Take 1 tablet by mouth Daily. nitroglycerin 0.[address] 0.4 mg under the tongue every 5 minutes as needed for Chest pain. aka: NITROSTAT pantoprazole 40 mg tablet Take 40 mg by mouth every morning (before breakfast). aka: PROTONIX Polyethylene Glycol 3350 Powd Take 17 g by mouth Daily as needed for Constipation. polyvinyl alcohol 1.4% ophthalmic solution Place 1 drop into both eyes every morning. aka: LIQUITEARS predniSONE 10 mg tablet Take 10 mg by mouth Daily. aka: DELTASONE senna 8.6 mg tablet Take 1 tablet by mouth every morning. aka: SENOKOT tamsulosin 0.4 mg Caps Take 0.4 mg by mouth nightly. aka: FLOMAX tiotropium 18 mcg inhalation capsule Inhale 18 mcg into the lungs Daily. aka: SPIRIVA VENTOLIN HFA 90 mcg/puff inhaler Generic drug: albuterol Inhale 2 puffs into the lungs every 4 hours as needed for Wheezing. VITAMIN D PO Take 1 tablet by mouth every morning. Discontinued Medications ALPRAZolam 0.25 mg tablet aka: XANAX clopidogrel 75 mg tablet aka: PLAVIX MYRBETRIQ 25 mg ER tablet Generic drug: mirabegron Alternative Med Lists (all with hard stops [...] order for discharge readmit) HOSPITAL COURSE: Please refer to the H&P for full details and the most recent rounding rounding (progress) n ote. Fell PHLEBOTOMY SUPPORT TECH Was trying to sit on walker but was not locked and fell back and had foot pain 4th xray on May 31 showed possible non displaced fracture involving the base of the 2nd p roximal phalanx extending to the MTP joint LEFT. ER Doc at admit aware as was admitter. 5th Ortho says no treatment needed and post op shoe is optional if needed 5th patient says foot does not hurt to walk on Heart Disease CAD TAVR in [place] February 16, 2019 bioprosthetic complicated by moderate AI requing a second iliana ve in valve replacment Found to be in mild CHF at admit (crackles, BNP Elevated) Dr Umanzor advised be seen in Cardiology clinic and use anticoagulation Dr Umanzor did consult and with the increased AVR gradient suggested potential bioprosthetic A VR thrombosis and recommended anticoag with Coumadin (he had discussed with Dr Rm) 4th Dr Umanzor is gone this week and I spoke to Dr Pineda as the thrombosis is possible and there is risk to anticoagulation, Dr Pineda was going to look into issue and let me know how best to check for clot in TAVR, he said not JENNIFER, maybe Cardiac CT vs Cardiac MR and son favors latt er as 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 5th Dr Pineda reviewed and says would stop Anticoag and I spoke with Dr Velazquez (Ting) and e says stop Anticoag that these pressures not unexpected and I told patient this and her son and Dr Cochran office in [place] contacted for their opionion. Did stop Coumadin which is not therapeutic yet anyhow 6th I called Dr Teddy Cochran office and his office has Echo via [employer] but he was to call e and did not. I called Dr Ayoub office and his office provided his pager, no reply yet to p aging him. Addendum (06/11/2019 18:44) Dr Ayoub not answer page so I paged again and am calling office number (now closed but hope to connect to crusher loader equipment operator) Addendum (06/11/2019 19:00) Did reach Anna [phone] and she confirmed Mega pager number says now admissions manager rn is Dr Buck and that Doc will be paged and if not reply in 20 minutes call back and the will use cell. I provided by [employer] for call back. Addendum (06/11/2019 19:43) I had to call again and then they had Dr Buck call me during my 2nd cll and I told her t he gradients here and she said that is OK and not concerning for valve thombosis, I asked e call the son but she said she wouldn't because she does not know the patient. I called kennedy lyn's son and told him the Dr Buck said the gradients OK and not concerned about valve t hrombosis and that I would tell mom. 7th Dr Pineda Consulted and he had checked with others and this gradient is OK recheck Echo in 6 weeks and I told patient and son. 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 She had increased urine freq after ceja removed but that is frequent occurrence. 6th 97 percent on 4 liters she is making vigorous urine on her small dose of Lasix and weig ht is down, lung crackles a surprise hence getting CXR this late afternoon. 8th Chest Xray better and lungs back to her COPD sounds ready for home. Hyperglycemia 6th she told me earlier sugars go up in hospital and I allowed non ADA diet but sugars high er so back to ADA diet and note she has some need for insulin SQ here 7th Sugars good since switching back to carb controlled diet and I told her to continue to watch her carbs at home. She insists not have DM. Did start on Coumadin here. Hx of bleeding requiring transfusion in past with Xarelto after 2 weeks and Apixaban after one month both requiring transfusion. INR goal is 1.8-2.2 4th Son very concerned about this provoking bleeding since cause of bleeding this time and last year remains unk. 5th I discussed with patient and Son. He is not enthused with stopping Coumadin. 7th Dr Pineda did not and he agree not need anticoag Acutely ill Jun 04 felt to be diverticulitis vs aspiration pneumoniits CT then showed RLL findings and focal mass like thickening and adjacent inflammatory change s in upper rectum through and area of diverticular disease (clinically had latter) Dr Wei paz could be converted to Augmentin soon 7th home will do 3-4 days Augmentin will total 10-11 days (IV + PO) 3rd Discussed with patient cannot exclude cancer in colon and pancreas and she tells me she is almost 89 and has live a good life and is not worried if she were to have cancer. Cystic like structures in pancreatic body potentially small cysts or small intraductal ampu llary mucinous neoplasms largest just 11 mm. Reported to have a normal MRCP recently per Dr Stoddard's note. He though cancer unlikely but could not be ruled out. 5th Son says Duy Razo had MRCP vs MRI February or March this year. 5th Dr Jarrell says will compare films if they arrive but if cannot compare then recheck CT yearly X 2 years Troponin elevated to 0.03 dropped to 0.11 then 0.06 Chronic severe COPD chronic hypoxic respir failure on NC O2 PHLEBOTOMY SUPPORT TECH she says 2-3 liters at home. Today is 97% on 4 liters. Heme positive stool Hx of EGD for Schtazkis ring EGD Jun 07 Dr Stoddard mild ring dilated, gastroparesis, gastritis PRBC once on Jun 02 son says had Colonoscopy due to bleeding 11 months ago and was clean, says her HGB spine nurse nically prior to TAVR was around 10. Colonoscopy (limited had poor prep) did see the area of concern and has severe divertic ulosis no bleeding no visible cancer and NOT need biopsy, did advance to the descending colo n. 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 Please see progress note and PHLEBOTOMY SUPPORT TECH medication list f or any discrepancies. PLEASE NOTE: ~ PHLEBOTOMY SUPPORT TECH carvedilol dose 6.25 mg BID (double what was ordered on admit); ~ Hydralazine therapy complete PHLEBOTOMY SUPPORT TECH; ~ docusate, fluticasone are PRN not scheduled PHLEBOTOMY SUPPORT TECH; ~ added several meds ([place], eye drops, Brovana/Pulmicort nebs, tamsulosin); ~ pt takes Bentyl once daily (states does not need four times daily). Thank you, Autumn Sutherland, PharmD 06/05/2019 12:43 I attest that this clinical assessment using ASPEN criteria 1 is accurate for this patient and supports that as a medical diagnosis. A specific nutrition treatment plan will be imple mented as outlined in the registered dietitian's plan of care. Nutrition Diagnosis: Moderate protein-calorie malnutrition Type, Moderate: Chronic illness(CAD, COPD) Energy Intake: Less than or equal to 75% energy intake compared to estimated needs for grea ter than or equal to 1 month Body Fat: Moderate depletion (mild depletion NFPE shows orbital, tricpes wasting) Muscle Mass: Moderate depletion (mild depletion NFPE shows temples, clavicles, shoulders) A. 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 Procedure was complicated with moderate perivalvu lar aortic valve insufficiency, requiring a second valve-in- valve replacement, 1 cell lower . 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 Peak velocity ac ross aortic valve of 2.5 m/s, mean gradient of 11 mmHg. B. Echocardiogram 02/18/2019 shows normal left ventricular size, thickness, syst olic function and wall motion with LVEF 65-70 %, a transcatheter is aortic valve is present, prosthetic aortic valve appears to be functioning normally, no pathologic regurgitation pre sent. MD Dr Teddy [facility] [address] [phone] (Son has said Dr Cochran and Dr Ayoub in same office but the number below crusher loader equipment operator did not kn ow of Dr Teddy Cochran) Dr Asha Ayoub [place] office [phone] press 5 and his pager is [phone] Dr Marcus Maguire [phone] (dot meyaddendum tdnorefesh nownorefresh) (dot meyvent) (dot malnutattest is attestation for malnutrition) Plan Son says he checked with Dr Douglas Kumar office and Dr Kumar will follow for home health Son will have Dr Millan switch DME provider Needs Narcotic few days till sees PCP Home today Home Health No Plavix Restart home beta barbara (HR and BP OK and CHF good control) Son says not to continue Lidocaine patches HgBA1c with Jun 12 labs CM said prior that Dr Millan will be PCP Has appt Jun 16 and Jun 23 per EPIC Ceja was out on No notes on file Most recent weight: Input and output for last 24hrs: Wt Readings from Last 1 Encounters: 06/12/19 56.1 kg (123 lb 10.9 oz) I/O last 24 Hours: In: 700 [P.O.:700] Out: 1625 [Urine:1625] Vitals Ranges: Temp: [36.2 C (97.2 F)-37.2 C (98.9 F)] 37.2 C (98.9 F) Pulse: [88-101] 96 Resp: [16-20] 18 BP: (104-176)/(54-85) 155/72 Vitals: Temp: 37.2 C (98.9 F) BP: 155/72 Pulse: 96 Resp: 18 SpO2: 100 % SpO2 100 % on nasal cannula at flow rate 3L/min PHYSICAL EXAM: Patient seen and examined by me on discharge day PROCEDURES AND CONSULTS: Procedures Consults PENDING RESULTS: DISPOSITION AND DISCHARGE INSTRUCTIONS: Follow-up Information Candido Link MD On 06/16/2019. Specialty: Internal Medicine Why: This is your hospital follow up appointment, scheduled for 1:00, Please check in at 1 2:45. You also have a new patient appointment scheduled for 06-23 at 11:am with Dr. Millan . Contact information: [address] [place] [phone] Condition: Patient being discharged with condition improved Greater than 30 minutes were spent on discharge and coordination of post-hospital care. (myla morton) Electronically signed by: Bruce Cochran MD, 06/12/2019 14:06 [facility] Reference. This is NOT part of the [...] this chart may have been created with [employer] recognition software. Occasi onal wrong-word or sound-alike substitutions may have occurred due to the inherent owen itations of voice recognition software. Please read the chart carefully and recognize, using context, where these substitutions have occurred documented in this en counter Discharge Instructions Instructions Bruce Cochran MD - 06/12/2019Avoid excess starches and carbohydrates, no ad ded salt Avoid nuts seeds and popcorn (because of diverticular disease) Need followup Echo 6 weeks You have appts on and on with Dr Millan Need followup Cat Scan on Pancreas in one and two years (unless they can compare old films and determine otherwise See Dr Millan next week, ask his office then to change oxygen provider Home Health Weigh daily and keep written log AttachmentsThe following attachments cannot be sent through Care Everywhere.Diverticulitis, Discharge Instructions for ([place])Congestive Heart Failure (CHF), Left-Sided ([place])doc umented in this encounter Medications at Time of [...] | | Take 3 mLs by | | 0 | | | | albuterol-ipratropiu | nebulization every 4 | | | | 9 | | m 2.5-0.5 mg/3 mL | hours as needed for | | | | | | SOLN | Increased Work of | | | | | | | Breathing. | | | | | + + + +---------+ + + | | Take 1 tablet by | 7 | 0 | 06/12/20 | | | amoxicillin-clavulan | mouth 2 times daily | tablet | | 19 | 9 | | ate (AUGMENTIN) | for 7 doses. | | | | | | 875-125 mg per | Indications: | | | | | | tabletIndications: | Diverticulitis of | | | | | | Diverticulitis of | the Gastrointestinal | | | | | | the Gastrointestinal | Tract | | | | | | Tract | | | | | | + + + +---------+ + + | arformoterol | Take 15 mcg by | | 0 | | | | (BROVANA) 15 MCG/2ML | nebulization 2 times | | | | 9 | | NEBU | daily. | | | | | + + + +---------+ + + | aspirin 81 mg | Take 81 mg by mouth | | 0 | | | | chewable tablet | Daily. | | | | 9 | + + + +---------+ + + | atorvaSTATin | Take 20 mg by mouth | | 0 | | | | (LIPITOR) 20 mg | every morning. | | | | 9 | | tablet | | | | | | + + + +---------+ + + | budesonide | Take 0.5 mg by | | 0 | | | | (PULMICORT) 0.5 mg/2 | nebulization 2 times | | | | 9 | | mL nebulizer | daily. | | | | | | solution | | | | | | + + + +---------+ + + | busPIRone (BUSPAR) | Take 10 mg by mouth | | 0 | | | | 10 MG tablet | Daily. | | | | 9 | + + + +---------+ + + | CALCIUM PO | Take 1,000 mg by | | 0 | | | | | mouth Daily. | | | | 9 | + + + +---------+ + + | carvedilol (COREG) | Take 6.25 mg by | | 0 | | | | 6.25 mg tablet | mouth 2 times daily | | | | 9 | | | (with breakfast & | | | | | | | dinner). | | | | | + + + +---------+ + + | cetirizine | Take 10 mg by mouth | | 0 | | | | (ZYRTEC) 10 mg | Daily. | | | | 9 | [...] + + | ferrous sulfate | Take 325 mg by mouth | | 0 | | | | 325 mg tablet | daily (with | | | | 9 | | | breakfast). | | | | | + + + +---------+ + + | furosemide (LASIX) | Take 20 mg by mouth | | 0 | | | | 20 mg tablet | Daily. | | | | 9 | + + + +---------+ + + | | Take 1 tablet by | 20 | 0 | 06/12/20 | | | HYDROcodone-acetamin | mouth 4 [...] +---------+ + + | metoprolol | Take 25 mg by mouth | | 0 | | | | succinate | nightly. | | | | 9 | | (TOPROL-XL) 25 mg 24 | [...] +---------+ + + | pantoprazole | Take 40 mg by mouth | | 0 | | | | (PROTONIX) 40 mg | every morning | | | | 9 | | tablet | (before breakfast). | [...] mg | Daily. | | | | 9 | | tablet | | | | | | + + + +---------+ + + | senna (SENNA) 8.6 | Take 1 tablet by | | 0 | | | | mg tablet | mouth every morning. | | | | 9 | + + + +---------+ + + | tamsulosin | Take 0.4 mg by mouth | | 0 | | | | (FLOMAX) 0.4 mg CAPS | nightly. | | | | 9 | + + + +---------+ + + | tiotropium | Inhale 18 mcg into | | 0 | | | | (SPIRIVA) 18 mcg | the lungs Daily. | | | | 9 | | inhalation capsule | | | | | | + + + +---------+ + + documented as of this encounter Progress Notes Bruce Cochran MD - 06/12/2019 1:17 PM PDTFormatting of this note might be different fro m the original. [place] HOSPITALIST PROGRESS NOTE Patient: Ángela Crowley : 1930: Age: 88 y.o. MedRec: [id number] PCP: Kathleen Escobar MD Admission date: 05/31/2019 Hospital day # : 12 Physician author: Bruce Cochran MD Today: 06/12/2019 Subjective CC Admit May 31 after falling Colonoscopy today (the area of concern on CT was reached) no cancer seen but was poor prep does have diverticulosis She says breathing is better and voiding OK. She says she and her son not drink ETOH (tells story of years ago broke toe after having ETOH). No foot pain with walking. I called Dr Teddy Cochran office and they said got the US by [employer] today and would have him call me after meeting. No call though by 450 pm and the number below no after hours service . Patient's son had told me prior that Dr Teddy Cochran was the person to contact but today victorina murray said that Dr Ayoub to call. I called office (via [employer]) and his office gave me pager karla prajapati I just paged at 450 pm. I called [facility] and Airplane Refueler there says have Cardiac MRI but not gated CT. I met with patient and her son earlier (1230 pm) he said he could not take her home until t omorrow. I noted he had moderate breath odor of 2 carbon fragments. He does confirm she is n ot on hydralazine anymore was stopped by prior Doctor as had low BP. So we have Dr Umanzor and Dr Rm said anticoag and Dr Pineda and Dr Velazquez say NOT anticoagulate and discussed with sosa ent and son. Home to here from [place]. Dr Velazquez yesterday said not need cardiac imaging. Patient is making much urine on only 20 mg of Lasix. May need to lower dose. 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 Fell PHLEBOTOMY SUPPORT TECH Was trying to sit on walker but was not locked and fell back and had foot pain 4th xray on May 31 showed possible non displaced fracture involving the base of the 2nd p roximal phalanx extending to the MTP joint LEFT. ER Doc at admit aware as was admitter. 5th Ortho says no treatment needed and post op shoe is optional if needed 5th patient says foot does not hurt to walk on Heart Disease CAD TAVR in [place] February 16, 2019 bioprosthetic complicated by moderate AI requing a second iliana ve in valve replacment Found to be in mild CHF at admit (crackles, BNP Elevated) Dr Umanzor advised be seen in Cardiology clinic and use anticoagulation Dr Umanzor did consult and with the increased AVR gradient suggested potential bioprosthetic A VR thrombosis and recommended anticoag with Coumadin (he had discussed with Dr Rm) 4th Dr Umanzor is gone this week and I spoke to Dr Pineda as the thrombosis is possible and there is risk to anticoagulation, Dr Pineda was going to look into issue and let me know how best to check for clot in TAVR, he said not JENNIFER, maybe Cardiac CT vs Cardiac MR and son favors latt er as 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 5th Dr Pineda reviewed and says would stop Anticoag and I spoke with Dr Velazquez (Ting) and h e says stop Anticoag that these pressures not unexpected and I told patient this and her son and Dr Cochran office in [place] contacted for their opionion. Did stop Coumadin which is not therapeutic yet anyhow 6th I called Dr Teddy Cochran office and his office has Echo via [employer] but he was to call m e and did not. I called Dr Ayoub office and his office provided his pager, no reply yet to p aging him. Addendum (06/11/2019 18:44) Dr Ayoub not answer page so I paged again and am calling office number (now closed but hope to connect to crusher loader equipment operator) Addendum (06/11/2019 19:00) Did reach Anna [phone] and she confirmed Mega pager number says now admissions manager rn is Dr Buck and that Doc will be paged and if not reply in 20 minutes call back and the will use [employer]. I provided by [employer] for call back. Addendum (06/11/2019 19:43) I had to call again and then they had Dr Buck call me during my 2nd cll and I told her t he gradients here and she said that is OK and not concerning for valve thombosis, I asked e call the son but she said she wouldn't because she does not know the patient. I called kennedy lyn's son and told him the Dr Buck said the gradients OK and not concerned about valve t hrombosis and that I would tell mom. 7th Dr Pineda Consulted and he had checked with others and this gradient is OK recheck Echo in 6 weeks and I told patient and son. 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 She had increased urine freq after ceja removed but that is frequent occurrence. 6th 97 percent on 4 liters she is making vigorous urine on her small dose of Lasix and weig ht is down, lung crackles a surprise hence getting CXR this late afternoon. 8th Chest Xray better and lungs back to her COPD sounds ready for home. Hyperglycemia 6th she told me earlier sugars go up in hospital and I allowed non ADA diet but sugars high er so back to ADA diet and note she has some need for insulin SQ here 7th Sugars good since switching back to carb controlled diet and I told her to continue to watch her carbs at home. She insists not have DM. Did start on Coumadin here. Hx of bleeding requiring transfusion in past with Xarelto after 2 weeks and Apixaban after one month both requiring transfusion. INR goal is 1.8-2.2 4th Son very concerned about this provoking bleeding since cause of bleeding this time and last year remains unk. 5th I discussed with patient and Son. He is not enthused with stopping Coumadin. 7th Dr Pineda did not and he agree not need anticoag Acutely ill Jun 04 felt to be diverticulitis vs aspiration pneumoniits CT then showed RLL findings and focal mass like thickening and adjacent inflammatory change s in upper rectum through and area of diverticular disease (clinically had latter) Dr Wei paz could be converted to Augmentin soon 7th home will do 3-4 days Augmentin will total 10-11 days 3rd Discussed with patient cannot exclude cancer in colon and pancreas and she tells me she is almost 89 and has live a good life and is not worried if she were to have cancer. Cystic like structures in pancreatic body potentially small cysts or small intraductal ampu llary mucinous neoplasms largest just 11 mm. Reported to have a normal MRCP recently per Dr Stoddard's note. He though cancer unlikely but could not be ruled out. 5th Son says Good Caitlin Razo had MRCP vs MRI February or March this year. 5th Dr Jarrell says will compare films if they arrive but if cannot compare then recheck CT yearly X 2 years Troponin elevated to 0.03 dropped to 0.11 then 0.06 Chronic severe COPD chronic hypoxic respir failure on NC O2 PHLEBOTOMY SUPPORT TECH 6th she says 2-3 liters at home. Today is 97% on 4 liters. Heme positive stool Hx of EGD for Schtazkis ring EGD Jun 07 Dr Stoddard mild ring dilated, gastroparesis, gastritis PRBC once on Jun 02 son says had Colonoscopy due to bleeding 11 months ago and was clean, says her HGB spine nurse nically prior to TAVR was around 10. 6th Colonoscopy (limited had poor prep) did see the area of concern and has severe divertic ulosis no bleeding no visible cancer and NOT need biopsy, did advance to the descending colo n. 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 Please see progress note and PHLEBOTOMY SUPPORT TECH medication list f or any discrepancies. PLEASE NOTE: ~ PHLEBOTOMY SUPPORT TECH carvedilol dose 6.25 mg BID (double what was ordered on admit); ~ Hydralazine therapy complete PHLEBOTOMY SUPPORT TECH; ~ docusate, fluticasone are PRN not scheduled PHLEBOTOMY SUPPORT TECH; ~ added several meds ([place], eye drops, Brovana/Pulmicort nebs, tamsulosin); ~ pt takes Bentyl once daily (states does not need four times daily). Thank you, Autumn Sutherland, PharmD 06/05/2019 12:43 I attest that this clinical assessment using ASPEN criteria 1 is accurate for this patient and supports that as a medical diagnosis. A specific nutrition treatment plan will be imple mented as outlined in the registered dietitian's plan of care. Nutrition Diagnosis: Moderate protein-calorie malnutrition Type, Moderate: Chronic illness(CAD, COPD) Energy Intake: Less than or equal to 75% energy intake compared to estimated needs for grea ter than or equal to 1 month Body Fat: Moderate depletion (mild depletion NFPE shows orbital, tricpes wasting) Muscle Mass: Moderate depletion (mild depletion NFPE shows temples, clavicles, shoulders) A. 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 Procedure was complicated with moderate perivalvu lar aortic valve insufficiency, requiring a second valve-in- valve replacement, 1 cell lower . 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 Peak velocity ac ross aortic valve of 2.5 m/s, mean gradient of 11 mmHg. B. Echocardiogram 02/18/2019 shows normal left ventricular size, thickness, syst olic function and wall motion with LVEF 65-70 %, a transcatheter is aortic valve is present, prosthetic aortic valve appears to be functioning normally, no pathologic regurgitation pre sent. MD Dr Teddy [facility] [address] [phone] (Son has said Dr Cochran and Dr Ayoub in same office but the number below crusher loader equipment operator did not kn ow of Dr Teddy Cochran) Dr Asha Ayoub [place] office [phone] press [phone] and his pager is [phone] Dr Marcus Maguire [phone] (dot meyaddendum tdnorefesh nownorefresh) (dot meyvent) (dot malnutattest is attestation for malnutrition) Plan Son says he checked with Dr Douglas Kumar office and Dr Kumar will follow for home health Son will have Dr Millan switch DME provider Needs Narcotic few days till sees PCP Home today Home Health No Plavix HgBA1c with Jun 12 labs CM said prior that Dr Millan will be PCP Has appt Jun 16 and Jun 23 per [facility] Brenna was out on (dot meyaddendum tdnorefesh nownorefresh) (dot meytime meycritical meysign) Bruce Cochran MD 06/12/2019 13:17 [facility] Objective Data Serial weights: Filed Weights: 05/31/19 1330 05/31/19 1900 06/02/19 0215 06/03/19 0049 Weight: 55.3 kg (122 lb) 56.4 kg (124 lb 5.4 oz) 56.9 kg (125 lb 7.1 oz) 55.6 kg (122 lb 9. 2 oz) 06/04/19 0049 06/05/19 0425 06/06/19 0431 06/07/19 0448 Weight: 54.5 kg (120 lb 2.4 oz) 54.7 kg (120 lb 9.5 oz) 57.9 kg (127 lb 10.3 oz) 57.8 kg (1 27 lb 6.8 oz) 06/08/19 0405 06/08/19202906/09/19 0630 06/10/19 0222 Weight: 59.9 kg (132 lb 0.9 oz) 59.9 kg (132 lb 0.9 oz) 62.1 kg (136 lb 14.5 oz) 58.4 kg (1 28 lb 12 oz) 06/11/19 0300 06/12/19 0516 Weight: 55.8 kg (123 lb 0.3 oz) 56.1 kg (123 lb 10.9 oz) Most recent weight: Input and output 2 shifts and 3 shifts: Wt Readings from Last 1 Encounters: 06/12/19 56.1 kg (123 lb 10.9 oz) I/O last 24 Hours: In: 700 [P.O.:700] Out: 1625 [Urine:1625] I/O last 3 completed shifts: In: 1150 [P.O.:1150] Out: 4020 [Urine:4020] Vitals Ranges: Temp: [36.2 C (97.2 F)-37.2 C (98.9 F)] 37.2 C (98.9 F) Pulse: [88-101] 96 Resp: [16-20] 18 BP: (104-176)/(54-85) 155/72 Vitals: Temp: 37.2 C (98.9 F) BP: 155/72 Pulse: 96 Resp: 18 SpO2: 100 % SpO2 100 % on nasal cannula at flow rate 3L/min Diet and Supplements Diet Diet general; consistent carbohydrate; sodium restricted 2 gm; Effective Now Number of Occurrences: Until Specified Order Comments: No artificial sweetners. She may have one packet of sugar with morning co ffee Order Questions: Type Diet general Carbohydrate restrictions consistent carbohydrate Sodium restictions sodium restricted 2 gm Allergies: Allergies Allergen Reactions Percocet [Oxycodone] Unknown Sulfa Antibiotics Unknown Current Medications: Current Facility-Administered Medications Medication Dose Route Frequency Provider Last Rate Last Dose acetaminophen (TYLENOL) tablet 650 mg 650 mg Oral Q4H PRN Keyur Carvajal MD 650 mg a t 06/04/19 0824 albuterol 2.5 mg/3 mL nebulizer solution 2.5 mg 2.5 mg Nebulization RT Q2H PRN Keyur Carvajal MD albuterol-ipratropium 2.5-0.5 mg/3 mL nebulizer solution 3 mL 3 mL Nebulization RT Q6H Keyur Carvajal MD 3 mL at 06/12/19 0900 ALPRAZolam (XANAX) tablet 0.25 mg 0.25 mg Oral Nightly PRN Keyur Carvajal MD 0.25 mg at 06/02/19 1159 alteplase (CATHFLO ACTIVASE) injection 2 mg 2 mg Intracatheter PRN Keyur Carvajal MD 2 mg at 06/06/19 1731 aspirin chewable tablet 81 mg 81 mg Oral Daily Bruce Cochran MD 81 mg at 06/12/19 09 atorvaSTATin (LIPITOR) tablet 20 mg 20 mg Oral Nightly Keyur Carvajal MD 20 mg at 2100 brimonidine (ALPHAGAN) 0.2% ophthalmic solution 1 drop 1 drop Both Eyes BID Keyur wallace MD 1 drop at 06/12/19 0908 budesonide (PULMICORT) nebulizer solution 0.5 mg 0.5 mg Nebulization RT BID Keyur wallace MD 0.5 mg at 06/12/19 0900 busPIRone (BUSPAR) tablet 10 mg 10 mg Oral Nightly Keyur Carvajal MD 10 mg at 2100 carvedilol (COREG) tablet 6.25 mg 6.25 mg Oral BID WC Keyur Carvajal MD 6.25 mg at 0 06/12/19 09 cetirizine (zyrTEC) tablet 10 mg 10 mg Oral Daily Keyur Carvajal MD 10 mg at 9 09 dextrose 50% injection 12.5-25 g 12.5-25 g Intravenous PRN Keyur Carvajal MD And dextrose 10% (D10W) infusion Intravenous Continuous PRN Keyur Carvajal MD dicyclomine (BENTYL) capsule 10 mg 10 mg Oral Daily Bruce Cochran MD 10 mg at 04/23 0908 docusate sodium (COLACE) capsule 100 mg 100 mg Oral BID PRN Keyur Carvajal MD docusate sodium (COLACE) capsule 200 mg 200 mg Oral Daily Keyur Carvajal MD 200 mg a t 06/12/19 0908 dorzolamide (TRUSOPT) 2% ophthalmic solution 1 drop 1 drop Both Eyes BID Keyur Carvajal MD 1 drop at 06/12/19 0908 ferrous sulfate tablet 325 mg 325 mg Oral Daily with breakfast Keyur Carvajal MD 325 mg at 06/12/19 0908 fluticasone (FLONASE) 50 mcg/nasal spray 1 spray 1 spray Nasal Daily Keyur Carvajal MD 1 spray at 06/12/19 0909 fluticasone (FLONASE) 50 mcg/nasal spray 2 spray 2 spray Each Nare BID PRN Félix rizzo MD 2 spray at 06/11/192099 furosemide (LASIX) tablet 20 mg 20 mg Oral Daily Bruce Cochran MD 20 mg at 9 0907 HYDROcodone-acetaminophen (NORCO) 5-325 mg per tablet 1-2 tablet 1-2 tablet Oral Q4H P RN Keyur Carvajal MD 2 tablet at 06/12/19 1036 insulin lispro (humaLOG KWIKPEN) injection (pen) 0-12 Units 0-12 Units Subcutaneous 4x Daily WC and HS Keyur Carvajal MD 4 Units at 06/11/19 1733 latanoprost (XALATAN) 0.005% ophthalmic solution 1 drop 1 drop Both Eyes Nightly Keyur Carvajal MD 1 drop at 06/11/19 2100 lidocaine (LIDODERM) 5% patch 1 patch 1 patch Transdermal Daily Keyur Carvajal MD 1 patch at 06/10/19 0815 nitroglycerin (NITROSTAT) SL tablet 0.4 mg 0.4 mg Sublingual Q5 Min PRN Keyur Carvajal MD ondansetron (ZOFRAN) injection 4 mg 4 mg Intravenous Q6H PRN Keyur Carvajal MD 4 mg at 06/10/19 1446 pantoprazole (PROTONIX) DR tablet 40 mg 40 mg Oral BID AC Keyur Carvajal MD 40 mg at 06/12/19 0620 pharmacy consult - other medications/reasons Other Pharmacy Consult Jazz Wu piperacillin-tazobactam (ZOSYN) 3.375 g in sodium chloride 0.9% 100 mL IVPB 3.375 g In travenous Q8H Keyur Carvajal MD 25 mL/hr at 06/12/19 0510 3.375 g at 06/12/19 0510 polyethylene glycol (MIRALAX) powder 17 g 17 g Oral Daily Bruce Cochran MD 17 g at 06/12/19 09 predniSONE (DELTASONE) tablet 10 mg 10 mg Oral Daily Keyur Carvajal MD 10 mg at 04/23 0908 saliva substitute (BIOTENE ORALBALANCE DRY MOUTH) gel GEL Mouth/Throat Q30 Min PRN Angelo Carvajal MD senna (SENOKOT) tablet 8.6 mg 8.6 mg Oral BID PRN Keyur Carvajal MD tamsulosin (FLOMAX) capsule 0.4 mg 0.4 mg Oral Nightly Bruce Cochran MD 0.4 mg at 06/11/192058 Current Infusions: dextrose 10% Hematology and anemia Recent Labs Lab 06/12/1962106/11/1963206/10/19 0516 06/08/19 0447 06/07/197 06/06/19 0413 WBC 11.0 12.2* 8.1 < > 7.2 7.3 9.0 HGB 9.5* 9.4* 8.7* < > 8.4* 8.7* 8.7* HCT 32.0* 30.3* 28.0* < > 27.2* 28.3* 28.5* PLT 180 157 144 < > 121* 124* 132* NEUPCT -- -- -- -- 85.5* 80.0 86.9* < > = values in this interval not displayed. Recent Labs Lab 06/12/1962106/11/1963206/10/19 1039 PROTIME 12.4 13.2 13.6 INR 0.9 1.0 1.1 No results for input(s): IRON, TIBC, PCTSAT, FERRITIN, TSH, [id number], FOLATE in the last 168 hours. Inflammatory markers Recent Labs Lab 06/07/1942606/06/19 1914 06/06/19 0807 06/06/19 0413 PROCALCITONI 8.62* 11.37* 17.89* 18.79* ESR -- -- -- 4 Chemistry Recent Labs Lab 06/12/1962106/11/1933 06/10/19 0516 097 06/06/19 0413 GLU 78 79 82 < > 97 113* NA 142 141 142 < > 143 145 K 3.9 3.9 3.8 < > 2.7* 3.9 CL 106 105 106 < > 108* 110* CO2 32* 35* 34* < > 33* 29 ANIONGAP 4 1* 2* < > 2* 6 BUN 17 19 21 < > 22 27* CREA 0.81 0.90 0.82 < > 0.81 0.90 GFRNONAA >60 59* >60 < > >60 59* CALCIUM 8.4* 8.6* 8.6* < > 8.4* 8.5* ALBUMIN -- -- -- -- 2.9* 2.9* TOTALPROTEIN -- -- -- -- 4.8* 4.9* BILITOT -- -- -- -- 0.5 0.5 ALKPHOS -- -- -- -- 80 84 ALT -- -- -- -- 11 12 AST -- -- -- -- 15 15 < > = values in this interval not displayed. Recent Labs Lab 06/07/19 0427 MG 1.9 No results for input(s): AMYLASE, LIPASE in the last 168 hours. No results for input(s): TRIG, CHOL, HDL, LDL in the last 168 hours. No results for input(s): AMMONIA in the last 168 hours. Cardiology & Digoxin Recent Labs Lab 06/12/19 0622 BNP 260* ABG No results for input(s): PHART, PO2ART, VPE4JPA, LOC8RZA, BEART, [id number] in the last 168 h ours. No results for input(s): SPECSOURCE, PHPOCB, PCO2, PO2, HCO3, TCO2, BEART, [id number] in the last 168 hours. Drug of overdose and abuse No results for input(s): ALCOHOL, ACTMN, SALICYLATE in the last 168 hours. No results for input(s): AMPHEQUAL, BARBITURATE, BENZSCR, CANNIBSCR, AMPHETAMINE, METHADSCR , OPIATESCR in the last 168 hours. Urinalysis No results for input(s): GLUCOSEU, WBCUA, RBCUA, SQUAMEPIUA, BACTERIAUA, CULTIF in the last 168 hours. Point of care glucose Recent Labs Lab 06/12/19 1206 06/11/19 2105 06/11/19 1658 06/11/19 1209 06/10/19 2015 06/10/19 1646 POCGLU 104 172* 230* 157* 137* 213* Micro results more choices using dot micro (below is last 7 days) Microbiology Results (Last 7) Date with Culture/Sensitivity) Procedure Component Value Units Date/Time Helicobactor pylori Biopsy [[id number]] (Normal) Collected: 06/07/19 0824 Order Status: Completed Lab Status: Final result Updated: 06/09/19 0915 Specimen: Tissue from Stomach, Antrum Helicobacter pylori Ag Negative Culture, Blood [[id number]] Collected: 06/06/19 0849 Order Status: Completed Lab Status: Final result Updated: 06/11/19 0851 Specimen: Peripheral Blood Culture No growth after 5 days incubation. Culture, Blood [[id number]] Collected: 06/06/19806 Order Status: Completed Lab Status: Final result Updated: 06/11/19 0811 Specimen: Blood from Line Culture No growth after 5 days incubation. Radiology results (more choices using dot risresults) Xr Chest Ap Portable Result Date: 06/11/2019 SINGLE AP CHEST 06/11/2019 6:01 PM CLINICAL HISTORY: Bibasilar crackles looking for CHF ARACELIS RISON: Radiography June 06 more remote imaging FINDINGS: The left approach PICC again te rminates over the mid SVC. 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 There is calcification an d tortuosity of the aorta with similar borderline cardiomegaly and prominence of the central pulmonary vasculature. Right basilar aeration appears improved, with mild residual basilar reticular opacity persisting. Minimal left basilar reticular opacity is unchanged. The rogelio ngs are clear elsewhere without visible pneumothorax or pleural effusion. Osteopenia is sug gested. IMPRESSION - 1. IMPROVING RIGHT BASILAR AERATION WITH SIMILAR BORDERLINE CARDIOMEG JAY AND PROMINENCE OF THE CENTRAL PULMONARY VASCULATURE. Dictated and Signed by: Sivakumar Ramon MD Electronically signed: 06/11/2019 8:39 PM Reference. This is NOT part of [...] this chart may have been created with [employer] voice recognition software. Occasi onal wrong-word or sound-alike substitutions may have occurred due to the inherent owen itations of voice recognition software. Please read the chart carefully and recognize, using context, where these substitutions have occurred eyer, Bruce Coe MD - 06/11/2019 4:50 PM PDT [facility] PROGRESS NOTE Patient: Ángela Crowley : 1930: Age: 88 y.o. MedRec: [id number] PCP: Kathleen Escobar MD Admission date: 05/31/2019 Hospital day # : 11 Physician author: Bruce Cochran MD Today: 06/11/2019 Subjective CC Admit May 31 after falling Colonoscopy today (the area of concern on CT was reached) no cancer seen but was poor prep does have diverticulosis She says breathing is better and voiding OK. She says she and her son not drink ETOH (tells story of years ago broke toe after having ETOH). No foot pain with walking. I called Dr Teddy Cochran office and they said got the US by [employer] today and would have him call me after meeting. No call though by 450 pm and the number below no after hours service . Patient's son had told me prior that Dr Teddy Cochran was the person to contact but today h e said that Dr Ayoub to call. I called office (via [employer]) and his office gave me pager karla prajapati I just paged at 450 pm. I called [facility] and Airplane Refueler there says have Cardiac MRI but not gated CT. I met with patient and her son earlier (1230 pm) he said he could not take her home until t omorrow. I noted he had moderate breath odor of 2 carbon fragments. He does confirm she is n ot on hydralazine anymore was stopped by prior Doctor as had low BP. So we have Dr Umanzor and Dr Rm said anticoag and Dr Pineda and Dr Velazquez say NOT anticoagulate and discussed with sosa ent and son. Home to here from [place]. Dr Velazquez yesterday said not need cardiac imaging. Patient is making much urine on only 20 mg of Lasix. May need to lower dose. 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 Fell PHLEBOTOMY SUPPORT TECH Was trying to sit on walker but was not locked and fell back and had foot pain 4th xray on May 31 showed possible non displaced fracture involving the base of the 2nd p roximal phalanx extending to the MTP joint LEFT. ER Doc at admit aware as was admitter. 5th Ortho says no treatment needed and post op shoe is optional if needed 5th patient says foot does not hurt to walk on Heart Disease CAD TAVR in [place] February 16, 2019 bioprosthetic complicated by moderate AI requing a second iliana ve in valve replacment Found to be in mild CHF at admit (crackles, BNP Elevated) Dr Umanzor advised be seen in Cardiology clinic and use anticoagulation Dr Umanzor did consult and with the increased AVR gradient suggested potential bioprosthetic A VR thrombosis and recommended anticoag with Coumadin (he had discussed with Dr Rm) 4th Dr Umanzor is gone this week and I spoke to Dr Pineda as the thrombosis is possible and there is risk to anticoagulation, Dr Pineda was going to look into issue and let me know how best to check for clot in TAVR, he said not JENNIFER, maybe Cardiac CT vs Cardiac MR and son favors latt er as 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 5th Dr Pineda reviewed and says would stop Anticoag and I spoke with Dr Velazquez (Ting) and h trevor says stop Anticoag that these pressures not unexpected and I told patient this and her son and Dr Cochran office in [place] contacted for their opionion. Did stop Coumadin which is not therapeutic yet anyhow 6th I called Dr Teddy Cochran office and his office has Echo via [employer] but he was to call m e and did not. I called Dr Ayoub office and his office provided his pager, no reply yet to p aging him. 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 She had increased urine freq after ceja removed but that is frequent occurrence. 6th 97 percent on 4 liters she is making vigorous urine on her small dose of Lasix and weig ht is down, lung crackles a surprise hence getting CXR this late afternoon. Hyperglycemia 6th she told me earlier sugars go up in hospital and I allowed non ADA diet but sugars high er so back to ADA diet and note she has some need for insulin SQ here Did start on Coumadin here. Hx of bleeding requiring transfusion in past with Xarelto after 2 weeks and Apixaban after one month both requiring transfusion. INR goal is 1.8-2.2 4th Son very concerned about this provoking bleeding since cause of bleeding this time and last year remains unk. 5th I discussed with patient and Son. He is not enthused with stopping Coumadin. Acutely ill Jun 04 felt to be diverticulitis vs aspiration pneumoniits CT then showed RLL findings and focal mass like thickening and adjacent inflammatory change s in upper rectum through and area of diverticular disease (clinically had latter) Dr Wei paz could be converted to Augmentin soon 3rd Discussed with patient cannot exclude cancer in colon and pancreas and she tells me she is almost 89 and has live a good life and is not worried if she were to have cancer. Cystic like structures in pancreatic body potentially small cysts or small intraductal ampu llary mucinous neoplasms largest just 11 mm. Reported to have a normal MRCP recently per Dr Stoddard's note. He though cancer unlikely but could not be ruled out. 5th Son says Duy Razo had MRCP vs MRI February or March this year. 5th Dr Jarrell says will compare films if they arrive but if cannot compare then recheck CT yearly X 2 years Troponin elevated to 0.03 dropped to 0.11 then 0.06 Chronic severe COPD chronic hypoxic respir failure on NC O2 PHLEBOTOMY SUPPORT TECH 6th she says 2-3 liters at home. Today is 97% on 4 liters. Heme positive stool Hx of EGD for Schtazkis ring EGD Jun 07 Dr Stoddard mild ring dilated, gastroparesis, gastritis PRBC once on Jun 02 son says had Colonoscopy due to bleeding 11 months ago and was clean, says her HGB spine nurse nically prior to TAVR was around 10. Colonoscopy (limited had poor prep) did see the area of concern and has severe divertic ulosis no bleeding no visible cancer and NOT need biopsy, did advance to the descending colo n. 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 Please see progress note and PHLEBOTOMY SUPPORT TECH medication list f or any discrepancies. PLEASE NOTE: ~ PHLEBOTOMY SUPPORT TECH carvedilol dose 6.25 mg BID (double what was ordered on admit); ~ Hydralazine therapy complete PHLEBOTOMY SUPPORT TECH; ~ docusate, fluticasone are PRN not scheduled PHLEBOTOMY SUPPORT TECH; ~ added several meds (Oxford, eye drops, Brovana/Pulmicort nebs, tamsulosin); ~ pt takes Bentyl once daily (states does not need four times daily). Thank you, Autumn Sutherland, PharmD 06/05/2019 12:43 I attest that this clinical assessment using ASPEN criteria 1 is accurate for this patient and supports that as a medical diagnosis. A specific nutrition treatment plan will be imple mented as outlined in the registered dietitian's plan of care. Nutrition Diagnosis: Moderate protein-calorie malnutrition Type, Moderate: Chronic illness(CAD, COPD) Energy Intake: Less than or equal to 75% energy intake compared to estimated needs for grea ter than or equal to 1 month Body Fat: Moderate depletion (mild depletion NFPE shows orbital, tricpes wasting) Muscle Mass: Moderate depletion (mild depletion NFPE shows temples, clavicles, shoulders) A. 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 Procedure was complicated with moderate perivalvu lar aortic valve insufficiency, requiring a second valve-in- valve replacement, 1 cell lower . 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 Peak velocity ac ross aortic valve of 2.5 m/s, mean gradient of 11 mmHg. B. Echocardiogram 02/18/2019 shows normal left ventricular size, thickness, syst olic function and wall motion with LVEF 65-70 %, a transcatheter is aortic valve is present, prosthetic aortic valve appears to be functioning normally, no pathologic regurgitation pre sent. 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 kn ow of Dr Teddy Cochran) Dr Asha Ayoub [place] office [phone] press 5 and his pager is [phone] Dr Marcus Maguire [phone] (dot meyaddendum tdnorefesh nownorefresh) (dot meyvent) (dot malnutattest is attestation for malnutrition) Plan Dr Teddy Cochran not call me back Dr Ayoub paged CXR Still on Zosyn Miralax Carb controlled diet Addendum (06/11/2019 18:44) Dr Ayoub not answer page so I paged again and am calling office number (now closed but hope to connect to 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 I provided by cell for call back. Addendum (06/11/2019 19:43) I had to call again and then they had Dr Buck call me and I told her the gradients here and she said that is OK and not concerning for valve thombosis, I asked she call the son but she said she wouldn't because she does not know the patient. I called patient's son and brant d him the Dr Buck said the gradients OK and not concerned about valve thrombosis and that I would tell mom. Addendum (06/11/2019 18:53) RN walked these over Son provided [phone] and I called twice and does not allow me to reach anyone Son provided [phone] Time spent with the patient (of which more than 50% was in counseling and/or coordination t he patient's care as outlined above) in minutes exceeded 50 minutes. Well now more than an hour, well more. Start following BNP HgBA1c with Jun 12 labs CM said prior that Dr Millan will be PCP Has appt Jun 16 and Jun 23 per [facility] Brnena was out on (dot meyaddendum tdnorefesh nownorefresh) (dot meytime meycritical meysign) Bruce Cochran MD 06/11/2019 16:50 [facility] Objective Data Serial weights: Filed Weights: 05/31/19 1330 05/31/19 1900 06/02/19 0215 06/03/19 0049 Weight: 55.3 kg (122 lb) 56.4 kg (124 lb 5.4 oz) 56.9 kg (125 lb 7.1 oz) 55.6 kg (122 lb 9. 2 oz) 06/04/19 0049 06/05/19 0425 06/06/19 0431 06/07/19 0448 Weight: 54.5 kg (120 lb 2.4 oz) 54.7 kg (120 lb 9.5 oz) 57.9 kg (127 lb 10.3 oz) 57.8 kg (1 27 lb 6.8 oz) 06/08/19 0405 06/08/19 2030 06/09/19 0606/10/19 0222 Weight: 59.9 kg (132 lb 0.9 oz) 59.9 kg (132 lb 0.9 oz) 62.1 kg (136 lb 14.5 oz) 58.4 kg (1 28 lb 12 oz) 06/11/19 0300 Weight: 55.8 kg (123 lb 0.3 oz) Most recent weight: Input and output 2 shifts and 3 shifts: Wt Readings from Last 1 Encounters: 06/11/19 55.8 kg (123 lb 0.3 oz) I/O last 24 Hours: In: 1667 [P.O.:1667] Out: 4395 [Urine:4395] I/O last 3 completed shifts: In: 1867 [P.O.:1667; I.V.:100; IV Piggyback:100] Out: 6145 [Urine:6145] Vitals Ranges: Temp: [35.9 C (96.6 F)-36.9 C (98.5 F)] 36.7 C (98.1 F) Pulse: [85-101] 101 Resp: [16-22] 20 BP: (92-157)/(35-84) 104/54 Vitals: Temp: 36.7 C (98.1 F) BP: 104/54 Pulse: 101 Resp: 20 SpO2: 97 % SpO2 97 % on nasal cannula at flow rate 3L/min Diet and Supplements Diet Diet general; sodium restricted 2 gm; Effective Now Number of Occurrences: Until Specified Order Comments: No artificial sweetners Order Questions: Type Diet general Sodium restictions sodium restricted 2 gm Allergies: Allergies Allergen Reactions Percocet [Oxycodone] Unknown Sulfa Antibiotics Unknown Current Medications: Current Facility-Administered Medications Medication Dose Route Frequency Provider Last Rate Last Dose acetaminophen (TYLENOL) tablet 650 mg 650 mg Oral Q4H PRN Keyur Carvajal MD 650 mg a t 06/04/19 0824 albuterol 2.5 mg/3 mL nebulizer solution 2.5 mg 2.5 mg Nebulization RT Q2H PRN Keyur Carvajal MD albuterol-ipratropium 2.5-0.5 mg/3 mL nebulizer solution 3 mL 3 mL Nebulization RT Q6H Keyur Carvajal MD 3 mL at 06/11/19 1454 ALPRAZolam (XANAX) tablet 0.25 mg 0.25 mg Oral Nightly PRN Keyur Carvajal MD 0.25 mg at 06/02/19 1159 alteplase (CATHFLO ACTIVASE) injection 2 mg 2 mg Intracatheter PRN Keyur Carvajal MD 2 mg at 06/06/19 1731 [START ON 06/12/2019] aspirin chewable tablet 81 mg 81 mg Oral Daily Bruce Cochran MD atorvaSTATin (LIPITOR) tablet 20 mg 20 mg Oral Nightly Keyur Carvajal MD 20 mg at 2008 brimonidine (ALPHAGAN) 0.2% ophthalmic solution 1 drop 1 drop Both Eyes BID Keyur wallace MD 1 drop at 06/11/19 0940 budesonide (PULMICORT) nebulizer solution 0.5 mg 0.5 mg Nebulization RT BID Keyur wallace MD 0.5 mg at 06/11/19 0956 busPIRone (BUSPAR) tablet 10 mg 10 mg Oral Nightly Keyur Carvajal MD 10 mg at 2008 carvedilol (COREG) tablet 6.25 mg 6.25 mg Oral BID WC Keyur Carvajal MD 6.25 mg at 0 06/10/19 1647 cetirizine (zyrTEC) tablet 10 mg 10 mg Oral Daily Keyur Carvajal MD 10 mg at 9 0916 dextrose 50% injection 12.5-25 g 12.5-25 g Intravenous PRN Keyur Carvajal MD And dextrose 10% (D10W) infusion Intravenous Continuous PRN Keyur Carvajal MD dicyclomine (BENTYL) capsule 10 mg 10 mg Oral Daily Bruce Cochran MD 10 mg at 03/24 0916 docusate sodium (COLACE) capsule 100 mg 100 mg Oral BID PRN Keyur Carvajal MD docusate sodium (COLACE) capsule 200 mg 200 mg Oral Daily Keyur Carvajal MD 200 mg a t 06/10/19 0817 dorzolamide (TRUSOPT) 2% ophthalmic solution 1 drop 1 drop Both Eyes BID Keyur Carvajal MD 1 drop at 06/11/19 0940 ferrous sulfate tablet 325 mg 325 mg Oral Daily with breakfast Keyur Carvajal MD 325 mg at 06/10/19 0817 fluticasone (FLONASE) 50 mcg/nasal spray 1 spray 1 spray Nasal Daily Keyur Carvajal MD 1 spray at 06/11/19 0940 fluticasone (FLONASE) 50 mcg/nasal spray 2 spray 2 spray Each Nare BID PRN Félix rizzo MD 2 spray at 06/10/192012 furosemide (LASIX) tablet 20 mg 20 mg Oral Daily Bruce Cochran MD 20 mg at 9 1029 HYDROcodone-acetaminophen (NORCO) 5-325 mg per tablet 1-2 tablet 1-2 tablet Oral Q4H P RN Keyur Carvajal MD 2 tablet at 06/11/19 1423 insulin lispro (humaLOG KWIKPEN) injection (pen) 0-12 Units 0-12 Units Subcutaneous 4x Daily WC and HS Keyur Carvajal MD 2 Units at 06/11/19 1239 latanoprost (XALATAN) 0.005% ophthalmic solution 1 drop 1 drop Both Eyes Nightly Keyur Carvajal MD 1 drop at 06/10/192009 lidocaine (LIDODERM) 5% patch 1 patch 1 patch Transdermal Daily Keyur Carvajal MD 1 patch at 06/10/19 0815 nitroglycerin (NITROSTAT) SL tablet 0.4 mg 0.4 mg Sublingual Q5 Min PRN Keyur Carvajal MD ondansetron (ZOFRAN) injection 4 mg 4 mg Intravenous Q6H PRN Keyur Carvajal MD 4 mg at 06/10/19 1446 pantoprazole (PROTONIX) DR tablet 40 mg 40 mg Oral BID AC Keyur Carvajal MD 40 mg at 06/11/19 0621 pharmacy consult - other medications/reasons Other Pharmacy Consult Jazz Wu piperacillin-tazobactam (ZOSYN) 3.375 g in sodium chloride 0.9% 100 mL IVPB 3.375 g In travenous Q8H Keyur Carvajal MD 25 mL/hr at 06/11/19 1354 3.375 g at 06/11/19 1354 [START ON 06/12/2019] polyethylene glycol (MIRALAX) powder 17 g 17 g Oral Daily Bruce Cochran MD predniSONE (DELTASONE) tablet 10 mg 10 mg Oral Daily Keyur Carvajal MD 10 mg at 03/24 saliva substitute (BIOTENE ORALBALANCE DRY MOUTH) gel GEL Mouth/Throat Q30 Min PRN Angelo Carvajal MD senna (SENOKOT) tablet 8.6 mg 8.6 mg Oral BID PRN Keyur Carvajal MD tamsulosin (FLOMAX) capsule 0.4 mg 0.4 mg Oral Nightly Bruce Cochran MD 0.4 mg at 06/10/192009 Current Infusions: dextrose 10% Hematology and anemia Recent Labs Lab 06/11/1933 06/10/19 0516 06/09/1942306/08/1944606/07/1942606/06/19 041 WBC 12.2* 8.1 6.8 7.2 7.3 9.0 HGB 9.4* 8.7* 8.4* 8.4* 8.7* 8.7* HCT 30.3* 28.0* 27.3* 27.2* 28.3* 28.5* PLT 157 144 120* 121* 124* 132* NEUPCT -- -- -- 85.5* 80.0 86.9* Recent Labs Lab 06/11/1963206/10/19 1039 06/08/19446 PROTIME 13.2 13.6 14.4* INR 1.0 1.1 1.1 No results for input(s): IRON, TIBC, PCTSAT, FERRITIN, TSH, CBVLETSA13, FOLATE in the last 168 hours. Inflammatory markers Recent Labs Lab 06/07/1942606/06/19 19106/06/19 0807 06/06/19 0413 PROCALCITONI 8.62* 11.37* 17.89* 18.79* ESR -- -- -- 4 Chemistry Recent Labs Lab 06/11/1963206/10/19 0516 06/09/19 0424 06/07/1942606/06/19 0413 GLU 79 82 88 97 113* NA 141 142 139 143 145 K 3.9 3.8 3.7 2.7* 3.9 CL 105 106 106 108* 110* CO2 35* 34* 33* 33* 29 ANIONGAP 1* 2* 0* 2* 6 BUN 19 21 20 22 27* CREA 0.90 0.82 0.80 0.81 0.90 GFRNONAA 59* >60 >60 >60 59* CALCIUM 8.6* 8.6* 8.1* 8.4* 8.5* ALBUMIN -- -- -- 2.9* 2.9* TOTALPROTEIN -- -- -- 4.8* 4.9* BILITOT -- -- -- 0.5 0.5 ALKPHOS -- -- -- 80 84 ALT -- -- -- 11 12 AST -- -- -- 15 15 Recent Labs Lab 06/07/19 0427 MG 1.9 No results for input(s): AMYLASE, LIPASE in the last 168 hours. No results for input(s): TRIG, CHOL, HDL, LDL in the last 168 hours. No results for input(s): AMMONIA in the last 168 hours. Cardiology & Digoxin No results for input(s): TROPONIN, CK, CKMB, BNP, DIGOXIN in the last 168 hours. Invalid input(s): CKTOTAL ABG No results for input(s): PHART, PO2ART, DGR1NII, FTW1WNR, BEART, D0NNCYNP in the last 168 h ours. No results for input(s): SPECSOURCE, PHPOCB, PCO2, PO2, HCO3, TCO2, BEART, YNAR2ZRK in the last 168 hours. Drug of overdose and abuse No results for input(s): ALCOHOL, ACTMN, SALICYLATE in the last 168 hours. No results for input(s): AMPHEQUAL, BARBITURATE, BENZSCR, CANNIBSCR, AMPHETAMINE, METHADSCR , OPIATESCR in the last 168 hours. Urinalysis No results for input(s): GLUCOSEU, WBCUA, RBCUA, SQUAMEPIUA, BACTERIAUA, CULTIF in the last 168 hours. Point of care glucose Recent Labs Lab 06/11/19 1209 06/10/19201406/10/19 1646 06/10/19 1217 06/10/19 0640 06/09/19 2144 POCGLU 157* 137* 213* 181* 85 118* Micro results more choices using dot micro (below is last 7 days) Microbiology Results (Last 7) Date with Culture/Sensitivity) Procedure Component Value Units Date/Time Helicobactor pylori Biopsy [[id number]] (Normal) Collected: 06/07/19823 Order Status: Completed Lab Status: Final result Updated: 06/09/19914 Specimen: Tissue from Stomach, Antrum Helicobacter pylori Ag Negative Culture, Blood [[id number]] Collected: 06/06/19848 Order Status: Completed Lab Status: Final result Updated: 06/11/19850 Specimen: Peripheral Blood Culture No growth after 5 days incubation. Culture, Blood [[id number]] Collected: 06/06/19806 Order Status: Completed Lab Status: Final result Updated: 06/11/19810 Specimen: Blood from Line Culture No growth [...] this chart may have been created with [employer] voice recognition software. Occasi onal wrong-word or sound-alike substitutions may have occurred due to the inherent owen itations of voice recognition software. Please read the chart carefully and recognize, using context, where these substitutions have occurred eyer, Bruce Coe MD - 06/10/2019 12:42 PM PDT [facility] ID HOSPITALIST PROGRESS NOTE Patient: Ángela Crowley : 1930: Age: 88 y.o. MedRec: [id number] PCP: Kathleen Escobar MD Admission date: 05/31/2019 Hospital day # : 10 Physician author: Bruce Cochran MD Today: 06/10/2019 Subjective CC Admit May 31 after falling She refuses full bowel prep but will do the Dulcolax and fleets for colon scope She said to tell her son it is her decision I spoke with Dr Marcus Maguire and read him Echo results he says NOT need anticoag nor valv e imaging as not suspect clot I spoke to Dr Cochran office in [place] and he to call me back (Son says he is the Contact Car diologist). Dr Pineda had also said to STOP anticoag. Dr Jarrell says colon suspicious for cancer Dr Agee says for toe fracture no treatment needed but could use post op shoe for comfort and patient says foot not hurt to walk Stable SOB ROS See above Objective Exam General Alert NAD Cardiac RRR Extremities no sig oedema Lung clear and not labored at rest is on O2 Abdominal Neuro alert fluent (dot meyexam) (dot meyvent) Assessment and Hospital Course (dot meyprob vs meyprobap) Hospital Course Note No notes on file Active Hospital Problems Diagnosis Heart failure with acute decompensation, type unknown Closed nondisplaced fracture of proximal phalanx of lesser toe of left foot Unwitnessed fall Myocardial infarction type 2 Generalized anxiety disorder Hypertension Moderate protein-calorie malnutrition Cerebral atherosclerosis longterm (current) use of anticoagulants - clopidogrel (PLAVIX) COPD (chronic obstructive pulmonary disease) Pulmonary hypertension, mild Anemia Coronary artery disease involving otoe-missouria coronary artery of otoe-missouria heart without angina pectoris 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 Fell PHLEBOTOMY SUPPORT TECH Was trying to sit on walker but was not locked and fell back and had foot pain 4th xray on May 31 showed possible non displaced fracture involving the base of the 2nd p roximal phalanx extending to the MTP joint LEFT. ER Doc at admit aware as was admitter. 5th Ortho says no treatment needed and post op shoe is optional if needed 5th patient says foot does not hurt to walk on Heart Disease CAD TAVR in [place] February 16, 2019 bioprosthetic complicated by moderate AI requing a second iliana ve in valve replacment Found to be in mild CHF at admit (crackles, BNP Elevated) Dr Umanzor advised be seen in Cardiology clinic and use anticoagulation Dr Umanzor did consult and with the increased AVR gradient suggested potential bioprosthetic A VR thrombosis and recommended anticoag with Coumadin (he had discussed with Dr Rm) 4th Dr Umanzor is gone this week and I spoke to Dr Pineda as the thrombosis is possible and there is risk to anticoagulation, Dr Pineda was going to look into issue and let me know how best to check for clot in TAVR, he said not JENNIFER, maybe Cardiac CT vs Cardiac MR and son favors latt er as 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 5th Dr Pineda reviewed and says would stop Anticoag and I spoke with Dr Velazquez (Ting) and victorina murray says stop Anticoag that these pressures not unexpected and I told patient this and her son and Dr Cochran office in [place] contacted for their opionion. 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 She had increased urine freq after ceja removed but that is frequent occurrence. Did start on Coumadin here. Hx of bleeding requiring transfusion in past with Xarelto after 2 weeks and Apixaban after one month both requiring transfusion. INR goal is 1.8-2.2 4th Son very concerned about this provoking bleeding since cause of bleeding this time and last year remains unk. 5th I discussed with patient and Son. He is not enthused with stopping Coumadin. Acutely ill Jun 04 felt to be diverticulitis vs aspiration pneumoniits CT then showed RLL findings and focal mass like thickening and adjacent inflammatory change s in upper rectum through and area of diverticular disease (clinically had latter) Dr Wei paz could be converted to Augmentin soon 3rd Discussed with patient cannot exclude cancer in colon and pancreas and she tells me she is almost 89 and has live a good life and is not worried if she were to have cancer. Cystic like structures in pancreatic body potentially small cysts or small intraductal ampu llary mucinous neoplasms largest just 11 mm. Reported to have a normal MRCP recently per Dr Stoddard's note. He though cancer unlikely but could not be ruled out. 5th Son says Duy Razo had MRCP vs MRI February or March this year. Dr Jarrell says will compare films if they arrive but if cannot compare then recheck CT yearly X 2 years Troponin elevated to 0.03 dropped to 0.11 then 0.06 Chronic severe COPD chronic hypoxic respir failure on NC O2 PHLEBOTOMY SUPPORT TECH Heme positive stool Hx of EGD for Schtazkis ring EGD Jun 07 Dr Stoddard mild ring dilated, gastroparesis, gastritis PRBC once on Jun 02 son says had Colonoscopy due to bleeding 11 months ago and was clean, says her HGB spine nurse nically prior to TAVR was around 10. 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 Please see progress note and PHLEBOTOMY SUPPORT TECH medication list f or any discrepancies. PLEASE NOTE: ~ PHLEBOTOMY SUPPORT TECH carvedilol dose 6.25 mg BID (double what was ordered on admit); ~ Hydralazine therapy complete PHLEBOTOMY SUPPORT TECH; ~ docusate, fluticasone are PRN not scheduled PHLEBOTOMY SUPPORT TECH; ~ added several meds (Oxford, eye drops, Brovana/Pulmicort nebs, tamsulosin); ~ pt takes Bentyl once daily (states does not need four times daily). Thank you, Autumn Sutherland, PharmD 06/05/2019 12:43 I attest that this clinical assessment using ASPEN criteria 1 is accurate for this patient and supports that as a medical diagnosis. A specific nutrition treatment plan will be imple mented as outlined in the registered dietitian's plan of care. Nutrition Diagnosis: Moderate protein-calorie malnutrition Type, Moderate: Chronic illness(CAD, COPD) Energy Intake: Less than or equal to 75% energy intake compared to estimated needs for grea ter than or equal to 1 month Body Fat: Moderate depletion (mild depletion NFPE shows orbital, tricpes wasting) Muscle Mass: Moderate depletion (mild depletion NFPE shows temples, clavicles, shoulders) A. Post TAVR with 23 mm Kevin Sapian S3 valve on 02/16/2019 by Asha Ayoub MD at the cardiac study Center in [facility]. Procedure was complicated with moderate perivalvu lar aortic valve insufficiency, requiring a second valve-in- valve replacement, 1 cell lower . 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 Peak velocity ac ross aortic valve of 2.5 m/s, mean gradient of 11 mmHg. B. Echocardiogram 02/18/2019 shows normal left ventricular size, thickness, syst olic function and wall motion with LVEF 65-70 %, a transcatheter is aortic valve is present, prosthetic aortic valve appears to be functioning normally, no pathologic regurgitation pre sent. MD Dr Teddy Nova [address] and [facility] [phone] Dr Asha Velazquez [phone] (dot meyaddendum tdnorefesh nownorefresh) (dot meyvent) (dot malnutattest is attestation for malnutrition) Plan Spoke with Dr Edwin Stoddard Patient, office of Dr Teddy Zamarripa saurav and Son and of course patient Dr Stoddard will call me back with timing of Vanco STOP Coumadin as Dr Pineda and Dr Velazquez said NOT needed (Dimas adds is risk for bleeding) Colonoscopy tomorrow limited Time spent with the patient (of which more than 50% was in counseling and/or coordination t he patient's care as outlined above) in minutes exceeded [address]. [address] Millan will be PCP Brenna was out on From Prior Dr Jarrell not in office when I called to ask when followup CT should be considered (colon issue and pancreatic issue) and I discussed concerns with patient Post op shoe is optional Addendum (06/10/2019 11:16) Added to this note but not seen her yet (dot meyaddendum tdnorefesh nownorefresh) (dot meytime meycritical meysign) Bruce Cochran MD 06/10/2019 12:42 [facility] Objective Data Serial weights: Filed Weights: 05/31/19 1330 05/31/19 1900 06/02/19 0215 06/03/19 0049 Weight: 55.3 kg (122 lb) 56.4 kg (124 lb 5.4 oz) 56.9 kg (125 lb 7.1 oz) 55.6 kg (122 lb 9. 2 oz) 06/04/19 0049 06/05/19 0425 06/06/19 0431 06/07/19 0448 Weight: 54.5 kg (120 lb 2.4 oz) 54.7 kg (120 lb 9.5 oz) 57.9 kg (127 lb 10.3 oz) 57.8 kg (1 27 lb 6.8 oz) 06/08/19 0405 06/08/19 2030 06/09/19 0630 06/10/19 0222 Weight: 59.9 kg (132 lb 0.9 oz) 59.9 kg (132 lb 0.9 oz) 62.1 kg (136 lb 14.5 oz) 58.4 kg (1 28 lb 12 oz) Most recent weight: Input and output 2 shifts and 3 shifts: Wt Readings from Last 1 Encounters: 06/10/19 58.4 kg (128 lb 12 oz) I/O last 24 Hours: In: 1050 [P.O.:850; I.V.:100; IV Piggyback:100] Out: 3275 [Urine:3275] I/O last 3 completed shifts: In: 3708 [P.O.:1150; I.V.:2098; IV Piggyback:460] Out: 4200 [Urine:4200] Vitals Ranges: Temp: [35.9 C (96.7 F)-36.9 C (98.5 F)] 36.3 C (97.3 F) Pulse: [80-98] 80 Resp: [16-19] 18 BP: (110-173)/(58-79) 110/58 Vitals: Temp: 36.3 C (97.3 F) BP: 110/58 Pulse: 80 Resp: 18 SpO2: 97 % SpO2 97 % on nasal cannula at flow rate 3L/min Diet and Supplements Diet Diet general; sodium restricted 2 gm; Effective Now Number of Occurrences: Until Specified Order Comments: No aspartame no nutrasweet Order Questions: Type Diet general Sodium restictions sodium restricted 2 gm Allergies: Allergies Allergen Reactions Percocet [Oxycodone] Unknown Sulfa Antibiotics Unknown Current Medications: Current Facility-Administered Medications Medication Dose Route Frequency Provider Last Rate Last Dose acetaminophen (TYLENOL) tablet 650 mg 650 mg Oral Q4H PRN Keyur Carvajal MD 650 mg a t 06/04/19 0824 albuterol 2.5 mg/3 mL nebulizer solution 2.5 mg 2.5 mg Nebulization RT Q2H PRN Keyur Carvajal MD albuterol-ipratropium 2.5-0.5 mg/3 mL nebulizer solution 3 mL 3 mL Nebulization RT Q6H Keyur Carvajal MD 3 mL at 06/09/192120 ALPRAZolam (XANAX) tablet 0.25 mg 0.25 mg Oral Nightly PRN Keyur Carvajal MD 0.25 mg at 06/02/19 1159 alteplase (CATHFLO ACTIVASE) injection 2 mg 2 mg Intracatheter PRN Keyur Carvajal MD 2 mg at 06/06/19 1731 aspirin chewable tablet 81 mg 81 mg Oral Daily Keyur Carvajal MD 81 mg at 06/10/19 0 817 atorvaSTATin (LIPITOR) tablet 20 mg 20 mg Oral Nightly Keyur Carvajal MD 20 mg at 2146 brimonidine (ALPHAGAN) 0.2% ophthalmic solution 1 drop 1 drop Both Eyes BID Keyur wallace MD 1 drop at 06/10/19 1032 budesonide (PULMICORT) nebulizer solution 0.5 mg 0.5 mg Nebulization RT BID Keyur wallace MD 0.5 mg at 06/09/192120 busPIRone (BUSPAR) tablet 10 mg 10 mg Oral Nightly Keyur Carvajal MD 10 mg at 2146 carvedilol (COREG) tablet 6.25 mg 6.25 mg Oral BID WC Keyur Carvajal MD 6.25 mg at 0 06/10/19 0817 cetirizine (zyrTEC) tablet 10 mg 10 mg Oral Daily Keyur Carvajal MD 10 mg at 9 0817 dextrose 50% injection 12.5-25 g 12.5-25 g Intravenous PRN Keyur Carvajal MD And dextrose 10% (D10W) infusion Intravenous Continuous PRN Keyur Carvajal MD dicyclomine (BENTYL) capsule 10 mg 10 mg Oral Daily Bruce Cochran MD 10 mg at 090 02/21 0817 docusate sodium (COLACE) capsule 100 mg 100 mg Oral BID PRN Keyur Carvajal MD docusate sodium (COLACE) capsule 200 mg 200 mg Oral Daily Keyur Carvajal MD 200 mg a t 06/10/19 0817 dorzolamide (TRUSOPT) 2% ophthalmic solution 1 drop 1 drop Both Eyes BID Keyur Carvajal MD 1 drop at 06/10/19 1033 ferrous sulfate tablet 325 mg 325 mg Oral Daily with breakfast Keyur Carvajal MD 325 mg at 06/10/19 0817 fluticasone (FLONASE) 50 mcg/nasal spray 1 spray 1 spray Nasal Daily Keyur Carvajal MD 1 spray at 06/10/19 1034 fluticasone (FLONASE) 50 mcg/nasal spray 2 spray 2 spray Each Nare BID PRN Félix rizzo MD 2 spray at 06/10/19 0643 furosemide (LASIX) tablet 20 mg 20 mg Oral Daily Bruce Cochran MD 20 mg at 9 0816 hydrALAZINE (APRESOLINE) tablet 10 mg 10 mg Oral TID Keyur Carvajal MD 10 mg at 02/21 0817 HYDROcodone-acetaminophen (NORCO) 5-325 mg per tablet 1-2 tablet 1-2 tablet Oral Q4H P RN Keyur Carvajal MD 2 tablet at 06/10/19 0816 insulin lispro (humaLOG KWIKPEN) injection (pen) 0-12 Units 0-12 Units Subcutaneous 4x Daily WC and HS Keyur Carvajal MD 2 Units at 06/10/19 1219 latanoprost (XALATAN) 0.005% ophthalmic solution 1 drop 1 drop Both Eyes Nightly Keyur Carvajal MD 1 drop at 06/09/19 2151 lidocaine (LIDODERM) 5% patch 1 patch 1 patch Transdermal Daily Keyur Carvajal MD 1 patch at 06/10/19 0815 nitroglycerin (NITROSTAT) SL tablet 0.4 mg 0.4 mg Sublingual Q5 Min PRN Keyur Carvajal MD ondansetron (ZOFRAN) injection 4 mg 4 mg Intravenous Q6H PRN Keyur Carvajal MD pantoprazole (PROTONIX) DR tablet 40 mg 40 mg Oral BID AC Keyur Carvajal MD 40 mg at 06/10/19 0641 piperacillin-tazobactam (ZOSYN) 3.375 g in sodium chloride 0.9% 100 mL IVPB 3.375 g In travenous Q8H Keyur Carvajal MD 25 mL/hr at 06/10/19 0517 3.375 g at 06/10/19 0517 predniSONE (DELTASONE) tablet 10 mg 10 mg Oral Daily Keyur Carvajal MD 10 mg at 02/21 0816 saliva substitute (BIOTENE ORALBALANCE DRY MOUTH) gel GEL Mouth/Throat Q30 Min PRN Angelo Carvajal MD senna (SENOKOT) tablet 8.6 mg 8.6 mg Oral BID PRN Keyur Carvajal MD tamsulosin (FLOMAX) capsule 0.4 mg 0.4 mg Oral Nightly Bruce Cochran MD 0.4 mg at 06/09/197 Current Infusions: dextrose 10% Hematology and anemia Recent Labs Lab 06/10/19 0516 06/09/19 0424 06/08/19 0447 06/07/19 0427 06/06/19 0413 WBC 8.1 6.8 7.2 7.3 9.0 HGB 8.7* 8.4* 8.4* 8.7* 8.7* HCT 28.0* 27.3* 27.2* 28.3* 28.5* PLT 144 120* 121* 124* 132* NEUPCT -- -- 85.5* 80.0 86.9* Recent Labs Lab 06/10/19 1039 06/08/19 0447 PROTIME 13.6 14.4* INR 1.1 1.1 No results for input(s): IRON, TIBC, PCTSAT, FERRITIN, TSH, [id number], FOLATE in the last 168 hours. Inflammatory markers Recent Labs Lab 06/07/19 0427 06/06/19 1914 06/06/19 0807 06/06/19 0413 PROCALCITONI 8.62* 11.37* 17.89* 18.79* ESR -- -- -- 4 Chemistry Recent Labs Lab 06/10/19 0516 06/09/19 0424 06/07/19 0427 06/06/19 0413 06/04/19 1154 GLU 82 88 97 113* < > 89 NA 142 139 143 145 < > 144 K 3.8 3.7 2.7* 3.9 < > 3.0* CL 106 106 108* 110* < > 107 CO2 34* 33* 33* 29 < > 29 ANIONGAP 2* 0* 2* 6 < > 8 BUN 21 20 22 27* < > 26* CREA 0.82 0.80 0.81 0.90 < > 0.91 GFRNONAA >60 >60 >60 59* < > 58* CALCIUM 8.6* 8.1* 8.4* 8.5* < > 8.6* ALBUMIN -- -- 2.9* 2.9* -- 3.1* TOTALPROTEIN -- -- 4.8* 4.9* -- 5.2* BILITOT -- -- 0.5 0.5 -- 1.4* ALKPHOS -- -- 80 84 -- 114 ALT -- -- 11 12 -- 12 AST -- -- 15 15 -- 17 < > = values in this interval not displayed. Recent Labs Lab 06/07/19 0427 MG 1.9 No results for input(s): AMYLASE, LIPASE in the last 168 hours. No results for input(s): TRIG, CHOL, HDL, LDL in the last 168 hours. No results for input(s): AMMONIA in the last 168 hours. Cardiology & Digoxin No results for input(s): TROPONIN, CK, CKMB, BNP, DIGOXIN in the last 168 hours. Invalid input(s): CKTOTAL ABG No results for input(s): PHART, PO2ART, IWE0REC, INJ7AHM, BEART, J3DUMIHJ in the last 168 h ours. No results for input(s): SPECSOURCE, PHPOCB, PCO2, PO2, HCO3, TCO2, BEART, [id number] in the last 168 hours. Drug of overdose and abuse No results for input(s): ALCOHOL, ACTMN, SALICYLATE in the last 168 hours. No results for input(s): AMPHEQUAL, BARBITURATE, BENZSCR, CANNIBSCR, AMPHETAMINE, METHADSCR , OPIATESCR in the last 168 hours. Urinalysis Recent Labs Lab 06/04/19 1212 GLUCOSEU Negative WBCUA 2-5* RBCUA 0-2 SQUAMEPIUA 0-2 BACTERIAUA Negative Point of care glucose Recent Labs Lab 06/10/19 1217 06/10/19 0640 06/09/19 2144 06/09/19 1758 06/09/19 1215 06/09/19 0701 POCGLU 181* 85 118* 161* 139* 81 Micro results more choices using dot micro (below is last 7 days) Microbiology Results (Last 7) Date with Culture/Sensitivity) Procedure Component Value Units Date/Time Helicobactor pylori Biopsy [[id number]] (Normal) Collected: 06/07/19 0824 Order Status: Completed Lab Status: Final result Updated: 06/09/19 0915 Specimen: Tissue from Stomach, Antrum Helicobacter pylori Ag Negative Culture, Blood [[id number]] Collected: 06/06/19 0849 Order Status: Completed Lab Status: Preliminary result Updated: 06/09/19 0851 Specimen: Peripheral Blood Culture No growth: Monitored continually by instrument for 5 days Culture, Blood [[id number]] Collected: 06/06/19 0807 Order Status: Completed Lab Status: Preliminary result Updated: 06/09/19 0811 Specimen: Blood from Line Culture No growth: Monitored continually by instrument for 5 days Culture, MRSA [[id number]] Collected: 06/04/19 1329 Order Status: Completed Lab Status: Final result Updated: 06/05/19 0730 Specimen: Tissue from Nares Culture 3+ Staphylococcus aureus,Methicillin resistant (MRSA) Comment: *INFECTION PREVENTION ALERT - MRSA* CONTACT PRECAUTIONS REQUIRED. Culture, Blood [[id number]] Collected: 06/04/19 1154 Order Status: Completed Lab Status: Final result Updated: 06/09/19 1211 Specimen: Peripheral Blood Culture No growth after 5 days incubation. Culture, Blood [[id number]] Collected: 06/04/19 1154 Order Status: Completed Lab Status: Final result Updated: 06/09/19 1211 Specimen: Peripheral Blood Culture No growth after [...] this chart may have been created with [employer] voice recognition software. Occasi onal wrong-word or sound-alike substitutions may have occurred due to the inherent owen itations of voice recognition software. Please read the chart carefully and recognize, using context, where these substitutions have occurred eyer, Bruce Coe MD - 06/09/2019 8:31 PM PDT [place], [place] [facility]ITAL[facility] PROGRESS NOTE Patient: Ángela Crowley : 1930: Age: 88 y.o. MedRec: [id number] PCP: Kathleen Escobar MD Admission date: 05/31/2019 Hospital day # : 9 Physician author: Bruce Cochran MD Today: 06/09/2019 Subjective CC Admit May 31 after falling Asks to go home and is unhappy not going today Son I spoke with on phone earlier and he drove up with his 2 youngsters and we talked much about Mom and issues Has SOB No NV ROS See above Objective Exam General Alert NAD Cardiac RRR Extremities no sig oedema Lung clear and not labored at rest Abdominal + BS soft non tender Neuro alert fluent (dot meyexam) (dot meyvent) Assessment and Hospital Course (dot meyprob vs meyprobap) Hospital Course Note No notes on file Active Hospital Problems Diagnosis Heart failure with acute decompensation, type unknown Closed nondisplaced fracture of proximal phalanx of lesser toe of left foot Unwitnessed fall Myocardial infarction type 2 Generalized anxiety disorder Hypertension Moderate protein-calorie malnutrition 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 Fell PHLEBOTOMY SUPPORT TECH Was trying to sit on walker but was not locked and fell back and had foot pain 4th xray on May 31 showed possible non displaced fracture involving the base of the 2nd p roximal phalanx extending to the MTP joint LEFT. ER Doc at admit aware as was admitter. Heart Disease CAD TAVR in [place] February 16, 2019 bioprosthetic complicated by moderate AI requing a second iliana ve in valve replacment Found to be in mild CHF at admit (crackles, BNP Elevated) Dr Umanzor advised be seen in Cardiology clinic and use anticoagulation Dr Umanzor did consult and with the increased AVR gradient suggested potential bioprosthetic A VR thrombosis and recommended anticoag with Coumadin (he had discussed with Dr Rm) 4th Dr Umanzor is gone this week and I spoke to Dr Pineda as the thrombosis is possible and there is risk to anticoagulation, Dr Pineda was going to look into issue and let me know how best to check for clot in TAVR, he said not JENNIFER, maybe Cardiac CT vs Cardiac MR and son favors latt er as 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 She had increased urine freq after ceja removed but that is frequent occurrence. Did start on Coumadin here. Hx of bleeding requiring transfusion in past with Xarelto after 2 weeks and Apixaban after one month both requiring transfusion. INR goal is 1.8-2.2 4th Son very concerned about this provoking bleeding since cause of bleeding this time and last year remains unk. Acutely ill Jun 04 felt to be diverticulitis vs aspiration pneumoniits CT then showed RLL findings and focal mass like thickening and adjacent inflammatory change s in upper rectum through and area of diverticular disease (clinically had latter) Dr Wei paz could be converted to Augmentin soon Discussed with patient cannot exclude cancer in colon and pancreas and she tells me she is almost 89 and has live a good life and is not worried if she were to have cancer/ Cystic like structures in pancreatic body potentially small cysts or small intraductal ampu llary mucinous neoplasms largest just 11 mm. Reported to have a normal MRCP recently per Dr Stoddard's note. He though cancer unlikely but could not be ruled out. Troponin elevated to 0.03 dropped to 0.11 then 0.06 Chronic severe COPD chronic hypoxic respir failure on NC O2 PHLEBOTOMY SUPPORT TECH Heme positive stool Hx of EGD for Schtazkis ring EGD Jun 07 Dr Stoddard mild ring dilated, gastroparesis, gastritis PRBC once on Jun 02 son says had Colonoscopy due to bleeding 11 months ago and was clean, says her HGB spine nurse nically prior to TAVR was around 10. 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 Please see progress note and PHLEBOTOMY SUPPORT TECH medication list f or any discrepancies. PLEASE NOTE: ~ PHLEBOTOMY SUPPORT TECH carvedilol dose 6.25 mg BID (double what was ordered on admit); ~ Hydralazine therapy complete PHLEBOTOMY SUPPORT TECH; ~ docusate, fluticasone are PRN not scheduled PHLEBOTOMY SUPPORT TECH; ~ added several meds ([place], eye drops, Brovana/Pulmicort nebs, tamsulosin); ~ pt takes Bentyl once daily (states does not need four times daily). Thank you, Autumn Sutherland, PharmD 06/05/2019 12:43 I attest that this clinical assessment using ASPEN criteria 1 is accurate for this patient and supports that as a medical diagnosis. A specific nutrition treatment plan will be imple mented as outlined in the registered dietitian's plan of care. Nutrition Diagnosis: Moderate protein-calorie malnutrition Type, Moderate: Chronic illness(CAD, COPD) Energy Intake: Less than or equal to 75% energy intake compared to estimated needs for grea ter than or equal to 1 month Body Fat: Moderate depletion (mild depletion NFPE shows orbital, tricpes wasting) Muscle Mass: Moderate depletion (mild depletion NFPE shows temples, clavicles, shoulders) A. 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 Procedure was complicated with moderate perivalvu lar aortic valve insufficiency, requiring a second valve-in- valve replacement, 1 cell lower . 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 Peak velocity ac ross aortic valve of 2.5 m/s, mean gradient of 11 mmHg. B. Echocardiogram 02/18/2019 shows normal left ventricular size, thickness, syst olic function and wall motion with LVEF 65-70 %, a transcatheter is aortic valve is present, prosthetic aortic valve appears to be functioning normally, no pathologic regurgitation pre sent. MD Dr Teddy Nova [facility] [address] [phone] Dr Asha Velazquez [phone] (dot meyaddendum tdnorefesh nownorefresh) (dot meyvent) (dot malnutattest is attestation for malnutrition) Plan Wants Home O2 from local DME and would need Dr Pineda to get back to me regarding imaging of TAVR (CT vs MR) likely cannot do here Discussed consideration for transfer if can justify for further workup Son and Patient say NO to SNF CM says Dr Millan will be PCP Brenna was out on From Prior Dr Jarrell not in office when I called to ask when followup CT should be considered (colon issue and pancreatic issue) and I discussed concerns with patient Would she benefit from post op shoe? Will check with Ortho goal of Thur Addendum (06/10/2019 11:16) Added to this note but not seen her yet (dot meyaddendum tdnorefesh nownorefresh) (dot meytime meycritical meysign) Bruce Cochran MD 06/09/2019 20:31 [facility] Objective Data Serial weights: Filed Weights: 05/31/19 1330 05/31/19 1900 06/02/19 0215 06/03/19 0049 Weight: 55.3 kg (122 lb) 56.4 kg (124 lb 5.4 oz) 56.9 kg (125 lb 7.1 oz) 55.6 kg (122 lb 9. 2 oz) 06/04/19 0049 06/05/19 0425 06/06/19 0431 06/07/19 0448 Weight: 54.5 kg (120 lb 2.4 oz) 54.7 kg (120 lb 9.5 oz) 57.9 kg (127 lb 10.3 oz) 57.8 kg (1 27 lb 6.8 oz) 06/08/19 0405 06/08/19 2030 06/09/19 0630 Weight: 59.9 kg (132 lb 0.9 oz) 59.9 kg (132 lb 0.9 oz) 62.1 kg (136 lb 14.5 oz) Most recent weight: Input and output 2 shifts and 3 shifts: Wt Readings from Last 1 Encounters: 06/09/19 62.1 kg (136 lb 14.5 oz) I/O last 24 Hours: In: 3508 [P.O.:1150; I.V.:1997; IV Piggyback:360] Out: 2450 [Urine:2450] I/O last 3 completed shifts: In: 4108 [P.O.:1750; I.V.:1997; IV Piggyback:360] Out: 4950 [Urine:4950] Vitals Ranges: Temp: [36.1 C (97 F)-37.1 C (98.7 F)] 36.4 C (97.5 F) Pulse: [85-100] 93 Resp: [18-20] 19 BP: (130-173)/(60-76) 133/66 Vitals: Temp: 36.4 C (97.5 F) BP: 133/66 Pulse: 93 Resp: 19 SpO2: 100 % SpO2 100 % on nasal cannula at flow rate 3L/min Diet and Supplements Diet Diet general; sodium restricted 2 gm; Effective Now Number of Occurrences: Until Specified Order Comments: No aspartame no nutrasweet Order Questions: Type Diet general Sodium restictions sodium restricted 2 gm Allergies: Allergies Allergen Reactions Percocet [Oxycodone] Unknown Sulfa Antibiotics Unknown Current Medications: Current Facility-Administered Medications Medication Dose Route Frequency Provider Last Rate Last Dose acetaminophen (TYLENOL) tablet 650 mg 650 mg Oral Q4H PRN Keyur Carvajal MD 650 mg a t 06/04/19 0824 albuterol 2.5 mg/3 mL nebulizer solution 2.5 mg 2.5 mg Nebulization RT Q2H PRN Keyur Carvajal MD albuterol-ipratropium 2.5-0.5 mg/3 mL nebulizer solution 3 mL 3 mL Nebulization RT Q6H Keyur Carvajal MD 3 mL at 06/09/19 1600 ALPRAZolam (XANAX) tablet 0.25 mg 0.25 mg Oral Nightly PRN Keyur Carvajal MD 0.25 mg at 06/02/19 1159 alteplase (CATHFLO ACTIVASE) injection 2 mg 2 mg Intracatheter PRN Keyur Carvajal MD 2 mg at 06/06/19 1731 aspirin chewable tablet 81 mg 81 mg Oral Daily Keyur Carvajal MD 81 mg at 06/09/19 0 904 atorvaSTATin (LIPITOR) tablet 20 mg 20 mg Oral Nightly Keyur Carvajal MD 20 mg at 2154 brimonidine (ALPHAGAN) 0.2% ophthalmic solution 1 drop 1 drop Both Eyes BID Keyur wallace MD 1 drop at 06/09/19 0909 budesonide (PULMICORT) nebulizer solution 0.5 mg 0.5 mg Nebulization RT BID Keyur wallace MD 0.5 mg at 06/09/19 0751 busPIRone (BUSPAR) tablet 10 mg 10 mg Oral Nightly Keyur Carvajal MD 10 mg at 2154 carvedilol (COREG) tablet 6.25 mg 6.25 mg Oral BID WC Keyur Carvajal MD 6.25 mg at 0 06/09/19 1756 cetirizine (zyrTEC) tablet 10 mg 10 mg Oral Daily Keyur Carvajal MD 10 mg at 9 0902 dextrose 50% injection 12.5-25 g 12.5-25 g Intravenous PRN Keyur Carvajal MD And dextrose 10% (D10W) infusion Intravenous Continuous PRN Keyur Carvajal MD dicyclomine (BENTYL) capsule 10 mg 10 mg Oral Daily Bruce Cochran MD 10 mg at 01/22 0904 docusate sodium (COLACE) capsule 100 mg 100 mg Oral BID PRN Keyur Carvajal MD docusate sodium (COLACE) capsule 200 mg 200 mg Oral Daily Keyur Carvajal MD 200 mg a t 06/08/19 0859 dorzolamide (TRUSOPT) 2% ophthalmic solution 1 drop 1 drop Both Eyes BID Keyur Carvajal MD 1 drop at 06/09/19 0907 ferrous sulfate tablet 325 mg 325 mg Oral Daily with breakfast Keyur Carvajal MD 325 mg at 06/09/19 0903 fluticasone (FLONASE) 50 mcg/nasal spray 1 spray 1 spray Nasal Daily Keyur Carvajal MD 1 spray at 06/09/19 0756 [START ON 06/10/2019] furosemide (LASIX) tablet 20 mg 20 mg Oral Daily Jazz Wu hydrALAZINE (APRESOLINE) tablet 10 mg 10 mg Oral TID Keyur Carvajal MD 10 mg at 01/22 1523 HYDROcodone-acetaminophen (NORCO) 5-325 mg per tablet 1-2 tablet 1-2 tablet Oral Q4H P RN Keyur Carvajal MD 1 tablet at 06/09/19 0724 insulin lispro (humaLOG KWIKPEN) injection (pen) 0-12 Units 0-12 Units Subcutaneous 4x Daily WC and HS Keyur Carvajal MD 2 Units at 06/09/19 1759 latanoprost (XALATAN) 0.005% ophthalmic solution 1 drop 1 drop Both Eyes Nightly Keyur Carvajal MD 1 drop at 06/08/19 2201 lidocaine (LIDODERM) 5% patch 1 patch 1 patch Transdermal Daily Keyur Carvajal MD 1 patch at 06/09/19 0911 nitroglycerin (NITROSTAT) SL tablet 0.4 mg 0.4 mg Sublingual Q5 Min PRN Keyur Carvajal MD ondansetron (ZOFRAN) injection 4 mg 4 mg Intravenous Q6H PRN Keyur Carvajal MD pantoprazole (PROTONIX) DR tablet 40 mg 40 mg Oral BID AC Keyur Carvajal MD 40 mg at 06/09/19 1803 piperacillin-tazobactam (ZOSYN) 3.375 g in sodium chloride 0.9% 100 mL IVPB 3.375 g In travenous Q8H Keyur Carvajal MD 25 mL/hr at 06/09/19 1524 3.375 g at 06/09/19 1524 predniSONE (DELTASONE) tablet 10 mg 10 mg Oral Daily Keyur Carvajal MD 10 mg at 01/22 0902 saliva substitute (BIOTENE ORALBALANCE DRY MOUTH) gel GEL Mouth/Throat Q30 Min PRN Angelo Carvajal MD senna (SENOKOT) tablet 8.6 mg 8.6 mg Oral BID PRN Keyur Carvajal MD tamsulosin (FLOMAX) capsule 0.4 mg 0.4 mg Oral Nightly Bruce Cochran MD 0.4 mg at 06/08/19 215 warfarin (COUMADIN) tablet 2 mg 2 mg Oral Daily - Warfarin Keyur Carvajal MD 2 mg at 06/09/19 1756 Current Infusions: dextrose 10% Hematology and anemia Recent Labs Lab 06/09/1942306/08/1944606/07/1942606/06/19412 WBC 6.8 7.2 7.3 9.0 HGB 8.4* 8.4* 8.7* 8.7* HCT 27.3* 27.2* 28.3* 28.5* PLT 120* 121* 124* 132* NEUPCT -- 85.5* 80.0 86.9* Recent Labs Lab 06/08/19446 PROTIME 14.4* INR 1.1 No results for input(s): IRON, TIBC, PCTSAT, FERRITIN, TSH, [id number], FOLATE in the last 168 hours. Inflammatory markers Recent Labs Lab 06/07/1942606/06/19 1914 06/06/19 0807 06/06/19 0413 PROCALCITONI 8.62* 11.37* 17.89* 18.79* ESR -- -- -- 4 Chemistry Recent Labs Lab 06/09/1942306/07/19 0427 06/06/19 0413 06/04/19 1154 GLU 88 97 113* < > 89 NA 139 143 145 < > 144 K 3.7 2.7* 3.9 < > 3.0* CL 106 108* 110* < > 107 CO2 33* 33* 29 < > 29 ANIONGAP 0* 2* 6 < > 8 BUN 20 22 27* < > 26* CREA 0.80 0.81 0.90 < > 0.91 GFRNONAA >60 >60 59* < > 58* CALCIUM 8.1* 8.4* 8.5* < > 8.6* ALBUMIN -- 2.9* 2.9* -- 3.1* TOTALPROTEIN -- 4.8* 4.9* -- 5.2* BILITOT -- 0.5 0.5 -- 1.4* ALKPHOS -- 80 84 -- 114 ALT -- 11 12 -- 12 AST -- 15 15 -- 17 < > = values in this interval not displayed. Recent Labs Lab 06/07/19 0427 MG 1.9 No results for input(s): AMYLASE, LIPASE in the last 168 hours. No results for input(s): TRIG, CHOL, HDL, LDL in the last 168 hours. No results for input(s): AMMONIA in the last 168 hours. Cardiology & Digoxin No results for input(s): TROPONIN, CK, CKMB, BNP, DIGOXIN in the last 168 hours. Invalid input(s): CKTOTAL ABG No results for input(s): PHART, PO2ART, FFB0KKD, FES6UTL, BEART, [id number] in the last 168 h ours. No results for input(s): SPECSOURCE, PHPOCB, PCO2, PO2, HCO3, TCO2, BEART, [id number] in the last 168 hours. Drug of overdose and abuse No results for input(s): ALCOHOL, ACTMN, SALICYLATE in the last 168 hours. No results for input(s): AMPHEQUAL, BARBITURATE, BENZSCR, CANNIBSCR, AMPHETAMINE, METHADSCR , OPIATESCR in the last 168 hours. Urinalysis Recent Labs Lab 06/04/19 1212 GLUCOSEU Negative WBCUA 2-5* RBCUA 0-2 SQUAMEPIUA 0-2 BACTERIAUA Negative Point of care glucose Recent Labs Lab 06/09/19 1758 06/09/19 1215 06/09/19 0701 09/03/220806/08/19 1715 06/08/19 1127 POCGLU 161* 139* 81 112* 125* 135* Micro results more choices using dot micro (below is last 7 days) Microbiology Results (Last 7) Date with Culture/Sensitivity) Procedure Component Value Units Date/Time Helicobactor pylori Biopsy [[id number]] (Normal) Collected: 06/07/19 0824 Order Status: Completed Lab Status: Final result Updated: 06/09/19 0915 Specimen: Tissue from Stomach, Antrum Helicobacter pylori Ag Negative Culture, Blood [[id number]] Collected: 06/06/19 0849 Order Status: Completed Lab Status: Preliminary result Updated: 06/09/19 0851 Specimen: Peripheral Blood Culture No growth: Monitored continually by instrument for 5 days Culture, Blood [[id number]] Collected: 06/06/19 0807 Order Status: Completed Lab Status: Preliminary result Updated: 06/09/19 0811 Specimen: Blood from Line Culture No growth: Monitored continually by instrument for 5 days Culture, MRSA [[id number]] Collected: 06/04/19 1329 Order Status: Completed Lab Status: Final result Updated: 06/05/19 0730 Specimen: Tissue from Nares Culture 3+ Staphylococcus aureus,Methicillin resistant (MRSA) Comment: *INFECTION PREVENTION ALERT - MRSA* CONTACT PRECAUTIONS REQUIRED. Culture, Blood [[id number]] Collected: 06/04/19 1154 Order Status: Completed Lab Status: Final result Updated: 06/09/19 1211 Specimen: Peripheral Blood Culture No growth after 5 days incubation. Culture, Blood [[id number]] Collected: 06/04/19 1154 Order Status: Completed Lab Status: Final result Updated: 06/09/19 1211 Specimen: Peripheral Blood Culture No growth after [...] this chart may have been created with [employer] voice recognition software. Occasi onal wrong-word or sound-alike substitutions may have occurred due to the inherent owen itations of voice recognition software. Please read the chart carefully and recognize, using context, where these substitutions have occurred eyer, Bruce Coe MD - 06/08/2019 4:45 PM PDT [place], [place] HOSPITALIST PROGRESS NOTE Patient: Ángela Crowley : 1930: Age: 88 y.o. MedRec: [id number] PCP: Kathleen Escobar MD Admission date: 05/31/2019 Hospital day # : 8 Physician author: Bruce Cochran MD Today: 06/08/2019 Subjective CC Admit May 31 after falling Chronic SOB Says Dr Carvajal told her she can go home on Friday Wants ceja out say was on Flomax PHLEBOTOMY SUPPORT TECH to help void PHLEBOTOMY SUPPORT TECH ROS See above Objective Exam General Alert NAD Cardiac RRR Extremities no sig oedema Lung clear not labored Abdominal + BS soft no sig LLQ tenderness Neuro alert fluent (dot meyexam) (dot meyvent) Assessment and Hospital Course (dot meyprob vs meyprobap) Hospital Course Note No notes on file Active Hospital Problems Diagnosis Heart failure with acute decompensation, type unknown Closed nondisplaced fracture of proximal phalanx of lesser toe of left foot Unwitnessed fall Myocardial infarction type 2 Generalized anxiety disorder Hypertension Moderate protein-calorie malnutrition 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 Fell PHLEBOTOMY SUPPORT TECH Was trying to sit on walker but was not locked and fell back and had foot pain Heart Disease CAD TAVR in [place] February 16, 2019 bioprosthetic complicated by moderate AI requing a second iliana ve in valve replacment Found to be in mild CHF at admit (crackles, BNP Elevated) Dr Umanzor advised be seen in Cardiology clinic and use anticoagulation Dr Umanzor did consult and with the increased AVR gradient suggested potential bioprosthetic A VR thrombosis and recommended anticoag with Coumadin (he had discussed with Dr Rm) 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 Hx of bleeding requiring transfusion in past with Xarelto and A pixaban INR goal is 1.8-2.2 Acutely ill Jun 04 felt to be diverticulitis vs aspiration pneumoniits CT then showed RLL findings and focal mass like thickening and adjacent inflammatory change s in upper rectum through and area of diverticular disease (clinically had latter) Dr Wei goldt could be converted to Augmentin soon Discussed with patient cannot exclude cancer in colon and pancreas and she tells me she is almost 89 and has live a good life and is not worried if she were to have cancer/ Cystic like structures in pancreatic body potentially small cysts or small intraductal ampu llary mucinous neoplasms largest just 11 mm. Reported to have a normal MRCP recently per Dr Stoddard's note. He though cancer unlikely but could not be ruled out. 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 Please see progress note and PHLEBOTOMY SUPPORT TECH medication list f or any discrepancies. PLEASE NOTE: ~ PHLEBOTOMY SUPPORT TECH carvedilol dose 6.25 mg BID (double what was ordered on admit); ~ Hydralazine therapy complete PHLEBOTOMY SUPPORT TECH; ~ docusate, fluticasone are PRN not scheduled PHLEBOTOMY SUPPORT TECH; ~ added several meds ([place], eye drops, Brovana/Pulmicort nebs, tamsulosin); ~ pt takes Bentyl once daily (states does not need four times daily). Thank you, Autumn Sutherland, PharmD 06/05/2019 12:43 I attest that this clinical assessment using ASPEN criteria 1 is accurate for this patient and supports that as a medical diagnosis. A specific nutrition treatment plan will be imple mented as outlined in the registered dietitian's plan of care. Nutrition Diagnosis: Moderate protein-calorie malnutrition Type, Moderate: Chronic illness(CAD, COPD) Energy Intake: Less than or equal to 75% energy intake compared to estimated needs for grea ter than or equal to 1 month Body Fat: Moderate depletion (mild depletion NFPE shows orbital, tricpes wasting) Muscle Mass: Moderate depletion (mild depletion NFPE shows temples, clavicles, shoulders) (dot meyaddendum tdnorefesh nownorefresh) (dot meyvent) (dot malnutattest is attestation for malnutrition) Plan Wants O2 locally will need O2 home test here ordered on 3rd (late) Will need home health Will need anticoagulation followup Changed to regular diet at her request, she says glucose only higher when in hospital Lowered Bentyl to daily (per pharmacy) Remove ceja on and follow PVR discussed might need to restart Query CM 3rd about whom to follow for Home Health and Coumadin Anticoag She does not have PCP in this area yet Dr Jarrell not in office when I called to ask when followup CT should be considered (colon issue and pancreatic issue) and I discussed concerns with patient (dot meyaddendum tdnorefesh nownorefresh) (dot meytime meycritical meysign) Bruce Cochran MD 06/08/2019 16:45 [facility] Objective Data Serial weights: Filed Weights: 05/31/19 1330 05/31/19 1900 06/02/19 0215 06/03/19 0049 Weight: 55.3 kg (122 lb) 56.4 kg (124 lb 5.4 oz) 56.9 kg (125 lb 7.1 oz) 55.6 kg (122 lb 9. 2 oz) 06/04/19 0049 06/05/19 0425 06/06/19 0431 06/07/19 0448 Weight: 54.5 kg (120 lb 2.4 oz) 54.7 kg (120 lb 9.5 oz) 57.9 kg (127 lb 10.3 oz) 57.8 kg (1 27 lb 6.8 oz) 06/08/19 0405 Weight: 59.9 kg (132 lb 0.9 oz) Most recent weight: Input and output 2 shifts and 3 shifts: Wt Readings from Last 1 Encounters: 06/08/19 59.9 kg (132 lb 0.9 oz) I/O last 24 Hours: In: 2442 [P.O.:900; I.V.:1542] Out: 2575 [Urine:2575] I/O last 3 completed shifts: In: 3288 [P.O.:900; I.V.:2224; IV Piggyback:164] Out: 4375 [Urine:4375] Vitals Ranges: Temp: [35.8 C (96.4 F)-37 C (98.6 F)] 36.2 C (97.2 F) Pulse: [78-105] 105 Resp: [16-20] 18 BP: (117-171)/(62-79) 171/79 Vitals: Temp: 36.2 C (97.2 F) BP: 171/79 Pulse: 105 Resp: 18 SpO2: 91 % SpO2 91 % on room air at flow rate 1L/min Diet and Supplements Diet Diet consistent carb; consistent carbohydrate; sodium restricted 2 gm; Effective Now Number of Occurrences: Until Specified Order Questions: Type Diet consistent carb Carbohydrate restrictions consistent carbohydrate Sodium restictions sodium restricted 2 gm Allergies: Allergies Allergen Reactions Percocet [Oxycodone] Unknown Sulfa Antibiotics Unknown Current Medications: Current Facility-Administered Medications Medication Dose Route Frequency Provider Last Rate Last Dose acetaminophen (TYLENOL) tablet 650 mg 650 mg Oral Q4H PRN Keyur Carvajal MD 650 mg a t 06/04/19 0824 albuterol 2.5 mg/3 mL nebulizer solution 2.5 mg 2.5 mg Nebulization RT Q2H PRN Keyur Carvajal MD albuterol-ipratropium 2.5-0.5 mg/3 mL nebulizer solution 3 mL 3 mL Nebulization RT Q6H Keyur Carvajal MD 3 mL at 06/08/19 1419 ALPRAZolam (XANAX) tablet 0.25 mg 0.25 mg Oral Nightly PRN Keyur Carvajal MD 0.25 mg at 06/02/19 1159 alteplase (CATHFLO ACTIVASE) injection 2 mg 2 mg Intracatheter PRN Keyur Carvajal MD 2 mg at 06/06/19 1731 aspirin chewable tablet 81 mg 81 mg Oral Daily Keyur Carvajal MD 81 mg at 06/08/19 0 859 atorvaSTATin (LIPITOR) tablet 20 mg 20 mg Oral Nightly Keyur Carvajal MD 20 mg at 2235 brimonidine (ALPHAGAN) 0.2% ophthalmic solution 1 drop 1 drop Both Eyes BID Keyur wallace MD 1 drop at 06/08/19 0903 budesonide (PULMICORT) nebulizer solution 0.5 mg 0.5 mg Nebulization RT BID Keyur wallace MD 0.5 mg at 06/08/19 0804 busPIRone (BUSPAR) tablet 10 mg 10 mg Oral Nightly Keyur Carvajal MD 10 mg at 2236 carvedilol (COREG) tablet 6.25 mg 6.25 mg Oral BID WC Keyur Carvajal MD 6.25 mg at 0 06/08/19 0900 cetirizine (zyrTEC) tablet 10 mg 10 mg Oral Daily Keyur Carvajal MD 10 mg at 9 0900 dextrose 50% injection 12.5-25 g 12.5-25 g Intravenous PRN Keyur Carvajal MD And dextrose 10% (D10W) infusion Intravenous Continuous PRN Keyur Carvajal MD dicyclomine (BENTYL) capsule 10 mg 10 mg Oral 4x Daily AC and HS Keyur Carvajal MD 1 0 mg at 06/08/19 1644 docusate sodium (COLACE) capsule 100 mg 100 mg Oral BID PRN Keyur Carvajal MD docusate sodium (COLACE) capsule 200 mg 200 mg Oral Daily Keyur Carvajal MD 200 mg a t 06/08/19 0859 dorzolamide (TRUSOPT) 2% ophthalmic solution 1 drop 1 drop Both Eyes BID Keyur Carvajal MD 1 drop at 06/08/19 0903 ferrous sulfate tablet 325 mg 325 mg Oral Daily with breakfast Keyur Carvajal MD 325 mg at 06/08/19 0859 fluticasone (FLONASE) 50 mcg/nasal spray 1 spray 1 spray Nasal Daily Keyur Carvajal MD 1 spray at 06/08/19 0826 furosemide (LASIX) tablet 40 mg 40 mg Oral Daily Keyur Carvajal MD 40 mg at 06/08/19 0859 hydrALAZINE (APRESOLINE) tablet 10 mg 10 mg Oral TID Keyur Carvajal MD 10 mg at 12/22 1447 HYDROcodone-acetaminophen (NORCO) 5-325 mg per tablet 1-2 tablet 1-2 tablet Oral Q4H P RN Keyur Carvajal MD 1 tablet at 06/08/19 1447 insulin lispro (humaLOG KWIKPEN) injection (pen) 0-12 Units 0-12 Units Subcutaneous 4x Daily WC and HS Keyur Carvajal MD 4 Units at 06/06/19 1143 lactated ringers (LR) infusion Intravenous Continuous Hermilo Alcocer MD latanoprost (XALATAN) 0.005% ophthalmic solution 1 drop 1 drop Both Eyes Nightly Keyur Carvajal MD 1 drop at 06/07/19 2240 lidocaine (LIDODERM) 5% patch 1 patch 1 patch Transdermal Daily Keyur Carvajal MD 1 patch at 06/08/19 0828 nitroglycerin (NITROSTAT) SL tablet 0.4 mg 0.4 mg Sublingual Q5 Min PRN Keyur Carvajal MD ondansetron (ZOFRAN) injection 4 mg 4 mg Intravenous Q6H PRN Keyur Carvajal MD pantoprazole (PROTONIX) DR tablet 40 mg 40 mg Oral BID AC Keyur Carvajal MD 40 mg at 06/08/19 1644 piperacillin-tazobactam (ZOSYN) 3.375 g in sodium chloride 0.9% 100 mL IVPB 3.375 g In travenous Q8H Keyur Carvajal MD 25 mL/hr at 06/08/19 1231 3.375 g at 06/08/19 1231 predniSONE (DELTASONE) tablet 10 mg 10 mg Oral Daily Keyur Carvajal MD 10 mg at 12/22 0859 saliva substitute (BIOTENE ORALBALANCE DRY MOUTH) gel GEL Mouth/Throat Q30 Min PRN Angelo Carvajal MD senna (SENOKOT) tablet 8.6 mg 8.6 mg Oral BID PRN Keyur Carvajal MD sodium chloride 0.45% (1/2 NS) 1,000 mL with potassium chloride 40 mEq infusion Intra venous Continuous Keyur Carvajal MD 75 mL/hr at 06/08/19 1229 warfarin (COUMADIN) tablet 2 mg 2 mg Oral Daily - Warfarin Keyur Carvajal MD 2 mg at 06/07/19 1829 Current Infusions: dextrose 10% lactated ringers sodium chloride 0.45% (1/2 NS) infusion + additives 75 mL/hr at 06/08/19 1229 Hematology and anemia Recent Labs Lab 06/08/1944606/07/1942606/06/19412 WBC 7.2 7.3 9.0 HGB 8.4* 8.7* 8.7* HCT 27.2* 28.3* 28.5* PLT 121* 124* 132* NEUPCT 85.5* 80.0 86.9* Recent Labs Lab 06/08/19446 PROTIME 14.4* INR 1.1 No results for input(s): IRON, TIBC, PCTSAT, FERRITIN, TSH, [id number], FOLATE in the last 168 hours. Inflammatory markers Recent Labs Lab 06/07/1942606/06/19191306/06/19 0807 06/06/1941206/02/19 191 PROCALCITONI 8.62* 11.37* 17.89* 18.79* < > <0.05 CRP -- -- -- -- -- 26.80* ESR -- -- -- 4 -- 10 < > = values in this interval not displayed. Chemistry Recent Labs Lab 06/07/1942606/06/1941206/05/19 0604 06/04/19 1154 GLU 97 113* 105 < > 89 NA 143 145 144 < > 144 K 2.7* 3.9 3.6 < > 3.0* CL 108* 110* 110* < > 107 CO2 33* 29 29 < > 29 ANIONGAP 2* 6 5 < > 8 BUN 22 27* 24* < > 26* CREA 0.81 0.90 0.79 < > 0.91 GFRNONAA >60 59* >60 < > 58* CALCIUM 8.4* 8.5* 8.6* < > 8.6* ALBUMIN 2.9* 2.9* -- -- 3.1* TOTALPROTEIN 4.8* 4.9* -- -- 5.2* BILITOT 0.5 0.5 -- -- 1.4* ALKPHOS 80 84 -- -- 114 ALT 11 12 -- -- 12 AST 15 15 -- -- 17 < > = values in this interval not displayed. Recent Labs Lab 06/07/19 0427 MG 1.9 No results for input(s): AMYLASE, LIPASE in the last 168 hours. No results for input(s): TRIG, CHOL, HDL, LDL in the last 168 hours. No results for input(s): AMMONIA in the last 168 hours. Cardiology & Digoxin Recent Labs Lab 06/01/19 2200 BNP 269* ABG No results for input(s): PHART, PO2ART, IEJ1RWD, ZOP9FCH, BEART, T4DQSOTU in the last 168 h ours. No results for input(s): SPECSOURCE, PHPOCB, PCO2, PO2, HCO3, TCO2, BEART, HMRY1EYU in the last 168 hours. Drug of overdose and abuse No results for input(s): ALCOHOL, ACTMN, SALICYLATE in the last 168 hours. No results for input(s): AMPHEQUAL, BARBITURATE, BENZSCR, CANNIBSCR, AMPHETAMINE, METHADSCR , OPIATESCR in the last 168 hours. Urinalysis Recent Labs Lab 06/04/19 1212 GLUCOSEU Negative WBCUA 2-5* RBCUA 0-2 SQUAMEPIUA 0-2 BACTERIAUA Negative Point of care glucose Recent Labs Lab 06/08/19 1127 06/08/19 0644 06/07/19 2252 06/07/19 1649 06/07/19 1211 06/07/19 1022 POCGLU 135* 110* 104 126* 121* 125* Micro results more choices using dot micro (below is last 7 days) Microbiology Results (Last 7) Date with Culture/Sensitivity) Procedure Component Value Units Date/Time Helicobactor pylori Biopsy [[id number]] Collected: 06/07/19 0824 Order Status: Sent Lab Status: In process Updated: 06/07/19844 Specimen: Tissue from Stomach, Antrum Culture, Blood [[id number]] Collected: 06/06/19 0849 Order Status: Completed Lab Status: Preliminary result Updated: 06/06/192050 Specimen: Peripheral Blood Culture No growth: Monitored continually by instrument for 5 days Culture, Blood [[id number]] Collected: 06/06/19806 Order Status: Completed Lab Status: Preliminary result Updated: 06/06/192010 Specimen: Blood from Line Culture No growth: Monitored continually by instrument for 5 days Culture, MRSA [[id number]] Collected: 06/04/19 1329 Order Status: Completed Lab Status: Final result Updated: 06/05/19 07 Specimen: Tissue from Nares Culture 3+ Staphylococcus aureus,Methicillin resistant (MRSA) Comment: *INFECTION PREVENTION ALERT - MRSA* CONTACT PRECAUTIONS REQUIRED. Culture, Blood [[id number]] Collected: 06/04/191153 Order Status: Completed Lab Status: Preliminary result Updated: 06/07/19 121 Specimen: Peripheral Blood Culture No growth: Monitored continually by instrument for 5 days Culture, Blood [[id number]] Collected: 06/04/191153 Order Status: Completed Lab Status: Preliminary result Updated: 06/07/191210 Specimen: Peripheral Blood Culture No growth: Monitored continually by instrument for 5 days Culture, Blood [[id number]] Collected: 06/02/191914 Order Status: Completed Lab Status: Final result Updated: 06/07/191920 Specimen: Peripheral Blood Culture No growth after 5 days incubation. Culture, Blood [[id number]] Collected: 06/02/191914 Order Status: Completed Lab Status: Final result Updated: 06/07/191920 Specimen: Peripheral Blood Culture No growth after 5 days incubation. Radiology results (more choices using dot risresults) No results found. Reference. This is NOT part of the patient's formal assessment section. In the assessment or plan section of notes the author may date some of the subsections with a number such as "23" or "" to indicate the date of [...] this chart may have been created with [employer] voice recognition software. Occasi onal wrong-word or sound-alike substitutions may have occurred due to the inherent owen itations of voice recognition software. Please read the chart carefully and recognize, using context, where these substitutions have occurred eyur Carvajal MD - 06/07/2019 5:24 PM PDT [facility] Hospitalist Progress Note Ángela Crowley is a 88 y.o. female ASSESSMENT and PLAN: 1. Altered mental status with fever and tachycardia 06/04 Patient markedly improved over the past 48 hours with antibiotic therapy and corticosteroid s. The patient had blood cultures to assess for possible endocarditis on 06/02 when her TAVR was abnormal and these thus far no growth. She became ill on 06/04 with blood cultures nega tive at that time off antibiotics and urine culture also negative. Patient at the onset of her acute illness on 06/04 had a procalcitonin of 6. The patient rapidly clinically improved with initiation of Zosyn therapy and IV corticosteroids and yesterday her procalcitonin was surprisingly 18 in the a.m. I repeated it last night and was down to 11 suggesting that ro se much higher than the 6 value noted with acute illness. This a.m. he continues to fall an d will continue Zosyn alone. She did undergo EGD today and received a single dose of vancom ycin prophylaxis for the possibility esophageal dilatation. Currently the working diagnosis is a aspiration pneumonitis into her right lung base based on x-ray appearance versus diverticulitis which I believe is the correct diagnosis. She may be a candidate for conversion to Augmentin at the time going to orals which should help bot h given her response to Zosyn. We will convert her back to oral prednisone tomorrow a.m. stopping the hydrocortisone. 2. Type 2 AR versus NSTEMI Patient's troponin has trended to baseline from 05/31 value of 0.13. Patient had TAVR in 02/04 and would have had coronary angiography prior to procedure. We are continue to work on obtaining any results of coronary arteriography.She was referred for her TAVR from [facility] in [place] and medical records is working to try to find records of a coronary a ngiogram from this facility 3 Abnormal TAVR In a TAVR Currently patient has a abnormal echocardiogram showing increased flow across her aortic va lve(3.1 m/s) and an increase in her mean gradient from [address] Umanzor has recommend ed limited echo to reassess with correction of anemia.He has also recommended EGd to assess for blood loss with plan of coumadin anticoagulation. The patient in 08/2018 did have a colonoscopy which she and her son were advised was fine. 4. Anemia. Patient has multiple etiologies. I did perform a rectal exam 06/02 which was weakly Hemoccu lt positive, she has significant ecchymoses associated with her recent fall prior to admissi on albeit this would not be asked to explain her chronic anemia, and her LDH is elevated sug gesting a possibility of a component of hemolysis. Currently she is on Protonix twice patrice y. Colonoscopy in August 2018 and no significant abnormality was noted in discussion with her son. She had MRCP apparently also in 2017 and this showed what was thought to be a sunitha ign growth on her pancreas. Patient on 06/04 was hemoconcentrated and extremely ill and thus I believe that her hematocr it of the 8.06/06 likely represents some blood loss but not excessive. EGD did not show a bl eeding source. .I am going to initiate Coumadin at 2 mg daily and will follow Hemoccults.She will need [employer] at the time of discharge to have [employer] shooting for an INR no greater than 2 meg prasanna. 5. Mild CHF Patient's BNP on admission was 487 and she was placed on furosemide 20 milligrams twice millie ly with a BMP currently down to 278. Chest x-ray on presentation was not compelling for aida dence of left heart failure. SUBJECTIVE: Patient since the evening of 06/04 has had progressive clinical improvement and ability to r espond appropriately. She believes currently that her left lower quadrant discomfort is imp roving on Zosyn.Patient remains on IV antibiotics noting that she has a TAVR placed 9.. VITALS: Temp: 36.8 C (98.2 F), Pulse: 90, Resp: 16, BP: 135/72, SpO2 100 % on nasal cannula at flow rate 2L/min Temp Min: 36.1 C (96.9 F) Max: 36.9 C (98.4 F) Weight: 55.3 kg (122 lb) Intake/Output Summary (Last 24 hours) at 06/07/2019 1724 Last data filed at 06/07/2019 1338 Gross per 24 hour Intake 1416 ml Output 2400 ml Net -984 ml PHYSICAL EXAM: Cardiovascular: Regular rate and rhythm with a 1/6 to 2/6 systolic murmur Respiratory: Clear bilaterally without deep breaths Abdomen: Mild left lower quadrant and suprapubic discomfort . Bowel sounds normoactive. Extremities: Significant lower extremity ecchymosis without peripheral edema Rectal exam performed 06/02: Increased rectal sphincter tone. Rectal vault had brown stool which was lightly Hemoccult positive turning blue more slowly than my control. DIAGNOSTIC STUDIES: Available data and images were reviewed personally. Significant results and findings are a ddressed here or in the Assessment and Plan. Lab Results Component Value Date HGB 8.7 (L) 06/07/2019 HCT 28.3 (L) 06/07/2019 PLT 124 (L) 06/07/2019 WBC 7.3 06/07/2019 Lab Results Component Value Date NA 143 06/07/2019 K 2.7 (L) 06/07/2019 CL 108 (H) 06/07/2019 CO2 33 (H) 06/07/2019 CREA 0.81 06/07/2019 BUN 22 06/07/2019 MG 1.9 06/07/2019 CRP 26.80 (H) 06/02/2019 ESR 4 06/06/2019 BNP 269 (H) 06/01/2019 Glucose, POC Date/Time Value Ref Range Status 06/07/2019 16:49 126 (H) 70 - 109 mg/dL Final 06/07/2019 12:11 121 (H) 70 - 109 mg/dL Final 06/07/2019 10:22 125 (H) 70 - 109 mg/dL Final Glucose, POC Date/Time Value Ref Range Status 06/07/2019 16:49 126 (H) 70 - 109 mg/dL Final 06/07/2019 12:11 121 (H) 70 - 109 mg/dL Final 06/07/2019 10:22 125 (H) 70 - 109 mg/dL Final Xr Chest Ap Portable Result Date: 06/06/2019 EXAM: XR CHEST AP PORTABLE dated 06/06/2019 5:39 AM HISTORY: possible RLL pneumonia Compariso n: 06/04/2019. TECHNIQUE: A single portable view of the chest. FINDINGS: The lungs are symmet rically aerated. Hazy airspace process is present in the right lateral lower lung of securi ng the lateral margin of the hemidiaphragm. The left lung remains clear. No large effusions . No pneumothorax. Stable cardiac and mediastinal contours. There is a left PICC line. T he catheter tip is in the distal brachiocephalic vein.. IMPRESSION - Hazy opacities now seen in the right lower lung could represent a pneumonia. Dictated and Signed by: Edwin webber MD Electronically signed: 06/06/2019 9:07 AM Total time of approximately 25 minutes was spent with the patient and/or patient's family, and/or on the patient's floor/unit, of which more than 50% was spent counseling and/or coord ination the patient's care as outlined above. Keyur Carvajal 06/07/2019 17:24 [facility] Portions of this chart may have been created with [employer] voice recognition software. Occasi onal wrong-word or sound-alike substitutions may have occurred due to the inherent owen itations of voice recognition software. Please read the chart carefully and recognize, using context, where these substitutions have occurred arriEdwin MD - 0 06/07/2019 8:06 AM PDTPatient seen at 7:20 AM 06/07. Case discussed previously with Dr. Andria hayes 06/06 and 06/04. The patient has had previous EGDs for treatment of Schatzki's ring. She co mplains of dysphagia with meat and rice. The patient has no questions, we will proceed with upper endoscopy. Patient has received prophylactic antibiotics. Consent form is signed.El ectronically signed by Edwin Stoddard MD at 06/07/2019 8:09 AM PDTParKeyur wallace MD - 10/2018 7:45 PM PDT [facility] Hospitalist Progress Note Ángela Crowley is a 88 y.o. female ASSESSMENT and PLAN: 1. Altered mental status with fever and tachycardia Patient markedly improved over the past 48 hours with antibiotic therapy and corticosteroid s. The patient had blood cultures to assess for possible endocarditis on 06/02 when her TAVR was abnormal and these thus far no growth. She became ill on 06/04 with blood cultures nega tive at that time off antibiotics and urine culture also negative. Patient at the onset of her acute illness on 06/04 had a procalcitonin of 6. Today it was repeated sure that it was improving and surprisingly was 18.8. He did not have a value obtained hours after initiatin g antibiotics and certainly it could have risen to greater than 18 and thus will repeat her value this evening of expanding her antibiotic coverage based upon this value alone. All ot her parameters have shown clinical improvement. 2. Type 2 AR versus NSTEMI Patient's troponin has trended to baseline from 05/31 value of 0.13. Patient had TAVR in 02/04 and would have had coronary angiography prior to procedure. We are continue to work on obtaining any results of coronary arteriography. 3 Abnormal TAVR Currently patient has a abnormal echocardiogram showing increased flow across her aortic va lve(3.1 m/s) and an increase in her mean gradient from [address] Umanzor has recommend ed limited echo to reassess with correction of anemia.He has also recommended EGd to assess for blood loss with plan of coumadin anticoagulation. EGD was canceled on 06/04 because of clinical deterioration with fevers. Discussed the case with GI and the plan will be to proceed with EGD tomorrow if her procalcitonin is falling. If it is rising we will hold and continue to assess her. 4. Anemia. Patient has multiple etiologies. I did perform a rectal exam today which was weakly Hemocc ult positive, as significant ecchymoses associated with her recent fall prior to admission a lbeit this would not be asked to explain her chronic anemia, and her LDH is elevated suggest ing a possibility of a component of hemolysis. I am going to increase her Protonix to twice daily. Colonoscopy in August 2018 and no significant abnormality was noted in discussion with her son. She had MRCP apparently also in 2018 and this showed what was thought to be a benign growth on her pancreas. Patient on 06/04 was hemoconcentrated and extremely ill and thus I believe that her hematocr it of the 8.5 today likely represents some blood loss but not excessive. We will proceed wi th EGD as soon as stable. 5. Mild CHF Patient's BNP on admission was 487 and she was placed on furosemide 20 milligrams twice millie ly with a BMP currently down to 278. Chest x-ray on presentation was not compelling for aida dence of left heart failure. SUBJECTIVE: Patient since the evening of 06/04 has had progressive clinical improvement and ability to r espond appropriately. She currently denies problems with shortness of breath or discomfort with exception of her left lower quadrant which she states she has recognized as tender. Monique murray chronically has pain but believes it slightly different certainly supporting the possibili ty this represents diverticulitis. VITALS: Temp: 36.7 C (98 F), Pulse: 93, Resp: 19, BP: 144/82, SpO2 97 % on nasal cannula at placido w rate 1L/min Temp Min: 36 C (96.8 F) Max: 36.7 C (98 F) Weight: 55.3 kg (122 lb) Intake/Output Summary (Last 24 hours) at 06/06/20191944 Last data filed at 06/06/2019 1631 Gross per 24 hour Intake 2316 ml Output 2550 ml Net -234 ml PHYSICAL EXAM: Cardiovascular: Regular rate and rhythm Respiratory: Clear bilaterally without deep breaths Abdomen: Lower abdominal discomfort worst in the left lower quadrant but mild at most wit hout guarding or rebound. Bowel sounds normoactive. Extremities: Significant lower extremity ecchymosis without peripheral edema Rectal exam performed 06/02: Increased rectal sphincter tone. Rectal vault had brown stool which was lightly Hemoccult positive turning blue more slowly than my control. DIAGNOSTIC STUDIES: Available data and images were reviewed personally. Significant results and findings are a ddressed here or in the Assessment and Plan. Lab Results Component Value Date HGB 8.7 (L) 06/06/2019 HCT 28.5 (L) 06/06/2019 PLT 132 (L) 06/06/2019 WBC 9.0 06/06/2019 Lab Results Component Value Date NA 145 06/06/2019 K 3.9 06/06/2019 CL 110 (H) 06/06/2019 CO2 29 06/06/2019 CREA 0.90 06/06/2019 BUN 27 (H) 06/06/2019 MG 2.0 06/01/2019 CRP 26.80 (H) 06/02/2019 ESR 4 06/06/2019 BNP 269 (H) 06/01/2019 Glucose, POC Date/Time Value Ref Range Status 06/06/2019 17:25 148 (H) 70 - 109 mg/dL Final 06/06/2019 11:42 233 (H) 70 - 109 mg/dL Final 06/06/2019 06:46 105 70 - 109 mg/dL Final Glucose, POC Date/Time Value Ref Range Status 06/06/2019 17:25 148 (H) 70 - 109 mg/dL Final 06/06/2019 11:42 233 (H) 70 - 109 mg/dL Final 06/06/2019 06:46 105 70 - 109 mg/dL Final Xr Chest Ap Portable Result Date: 06/06/2019 EXAM: XR CHEST AP PORTABLE dated 06/06/2019 5:39 AM HISTORY: possible RLL pneumonia Compariso n: 06/04/2019. TECHNIQUE: A single portable view of the chest. FINDINGS: The lungs are symmet rically aerated. Hazy airspace process is present in the right lateral lower lung of securi ng the lateral margin of the hemidiaphragm. The left lung remains clear. No large effusions . No pneumothorax. Stable cardiac and mediastinal contours. There is a left PICC line. T he catheter tip is in the distal brachiocephalic vein.. IMPRESSION - Hazy opacities now seen in the right lower lung could represent a pneumonia. Dictated and Signed by: Edwin webber MD Electronically signed: 06/06/2019 9:07 AM Xr Chest Ap Portable Result Date: 06/04/2019 SINGLE AP CHEST 06/04/2019 8:29 PM CLINICAL HISTORY: picc tip localization status post manip ulation COMPARISON: CT and radiography FINDINGS: The left approach PICC remains in position however its tip has straightened in the interim and now projects over the mid SVC. Calcific ation and tortuosity of the aorta persist. 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 There is similar borderline cardiomegaly and prominence of the central pulmonary vasculature. Mild basilar reticular opacity is similar to previous. The lungs are clear elsewhere without vis ible pneumothorax or pleural effusion. Degenerative changes of the shoulders are again noted . Osteopenia is suggested. IMPRESSION - 1. IMPROVED POSITIONING OF THE LEFT APPROACH PICC , WHICH NOW TERMINATES OVER THE MID SVC. Findings were discussed with the infusion services nurse caring for the patient at the time of interpretation on June 04, 2019. Dictated and Signed by: Sivakumar Ramon MD Electronically signed: 06/04/2019 8:46 PM Total time of approximately 30 minutes was spent with the patient and/or patient's family, and/or on the patient's floor/unit, of which more than 50% was spent counseling and/or coord ination the patient's care as outlined above. Keyur Carvajal 06/06/2019 19:45 [facility] Portions of this chart may have been created with [employer] voice recognition software. Occasi onal wrong-word or sound-alike substitutions may have occurred due to the inherent owen itations of voice recognition software. Please read the chart carefully and recognize, using context, where these substitutions have occurred arkerKeyur MD - 0 06/05/2019 7:53 PM PDT [facility] Hospitalist Progress Note Ángela Crowley is a 88 y.o. female ASSESSMENT and PLAN: 1. Altered mental status with fever and tachycardia Patient markedly improved with 24 hours of antibiotic therapy. She does not recall anythin g about yesterday. Does report chronic abdominal pain does state her left side is somewhat tender. She denies shortness of breath, cough, or sputum production. At this point will continue with IV Zosyn for probable diverticulitis. She is being seen b y speech to be assessed for the possibility of aspiration. We will repeat her procalcitonin tomorrow. Will reduce the cortisone to 50 mg every 8 hours. 2. Type 2 AR versus NSTEMI Patient's troponin has trended to baseline from 05/31 value of 0.13. Patient had TAVR in 02/04 and would have had coronary angiography prior to procedure. We are continue to work on obtaining any results of coronary arteriography. 3 Abnormal TAVR Currently patient has a abnormal echocardiogram showing increased flow across her aortic va lve(3.1 m/s) and an increase in her mean gradient from [address] Umanzor has recommend ed limited echo to reassess with correction of anemia.He has also recommended EGd to assess for blood loss with plan of coumadin anticoagulation. We will plan on EGD once the patient is clinically stable without evidence of bacteremia. No blood cultures thus far no growth f rom yesterday. 4. Anemia. Patient has multiple etiologies. I did perform a rectal exam today which was weakly Hemocc ult positive, as significant ecchymoses associated with her recent fall prior to admission a lbeit this would not be asked to explain her chronic anemia, and her LDH is elevated suggest ing a possibility of a component of hemolysis. I am going to increase her Protonix to twice daily. Colonoscopy in August 2018 and no significant abnormality was noted in discussion with her son. She had MRCP apparently also in 2017 and this showed what was thought to be a benign growth on her pancreas. Given need for anticoagulation will plan EGD(colonoscopy done in 08/2018 and reportedly nor mal) when clinically stable 5. Mild CHF Patient's BNP on admission was 487 and she was placed on furosemide 20 milligrams twice millie ly with a BMP currently down to 278. Chest x-ray on presentation was not compelling for aida dence of left heart failure. SUBJECTIVE: Patient this a.m. near baseline in terms of mentation. She has no recollection of what hap pened yesterday. Currently she does report some abdominal discomfort. Is more in the left lower quadrant and suprapubically. VITALS: I/O's +457 and 3233 cc since admission Tmax = 37.2. BP108/59, HR 98 at 6 pm PHYSICAL EXAM: Cardiovascular: Regular rate and rhythm Respiratory: Clear bilaterally without deep breaths Abdomen: Lower abdominal discomfort worst in left lower quadrant. No guarding bowel soun ds normoactive. Extremities: Significant lower extremity ecchymosis without peripheral edema Rectal exam performed 06/02: Increased rectal sphincter tone. Rectal vault had brown stool which was lightly Hemoccult positive turning blue more slowly than my control. DIAGNOSTIC STUDIES: Available data and images were reviewed personally. Significant results and findings are a ddressed here or in the Assessment and Plan. Results for ÁNGELA CROWLEY ( ) as of 06/06/2019 20:00 Ref. Range 06/05/2019 06:04 Na Latest Ref Range: 136 - 145 mmol/L 144 K Latest Ref Range: 3.4 - 5.1 mmol/L 3.6 Chloride Latest Ref Range: 98 - 107 mmol/L 110 (H) Carbon dioxide Latest Ref Range: 20 - 31 mmol/L 29 Anion Gap Latest Ref Range: 3 - 16 mmol/L 5 Glucose Latest Ref Range: 60 - 106 mg/dL 105 BUN Latest Ref Range: 9 - 23 mg/dL 24 (H) Creatinine Latest Ref Range: 0.55 - 1.02 mg/dL 0.79 BUN/Creatinine Ratio Unknown 30.4 EGFR IF NOT Latest Ref Range: >=60 mL/min/1.73m2 >60 Calcium Latest Ref Range: 8.7 - 10.4 mg/dL 8.6 (L) Total time of approximately 25 minutes was spent with the patient and/or patient's family, and/or on the patient's floor/unit, of which more than 50% was spent counseling and/or coord ination the patient's care as outlined above. Keyur Carvajal 06/06/2019 19:53 [facility] Portions of this chart may have been created with [employer] voice recognition software. Occasi onal wrong-word or sound-alike substitutions may have occurred due to the inherent owen itations of voice recognition software. Please read the chart carefully and recognize, using context, where these substitutions have occurred Autumn Goodson, Pharm D - 06/05/2019 12:45 PM PDT PHARMACY SERVICES: ADMISSION MEDICATION REVIEW Ángela Crowley is a 88 y.o. female admitted on 05/31/2019. Patient is not a reliable historian. Location of Patient when reviewed: ? ED ? Medical Floor Patient s prior to admit medication and over the counter (OTC) medications/herbal supplem ents list obtained from: ? Verbal interview ? Patient ABLE to recall name, strength, and directions ? Patient UNABLE to recall name, strength, and direction (patient stated to call her son) ? Patient able to recall SOME Name, strength, and directions ? Patient not interviewed or unable to supply information due to: ? Patient/family member provided a complete current medication list or bottles ? MAR from [facility] facility: ? Doctor's office: ? Pharmacy list names: [facility] ? [place] State Prescription [place] Prescription [place] [employer] insurance reported information ? Care Everywhere ? Outside Information ? Other sources: Verbal interview with sonYadiel, who manages patient's medications Vaccines up to date? Yes No Unsure Influenza x Pneumococcal x Tdap x Shingles x Noted medications discrepancies or medication-related issues: Dosage/Form/Frequency change: PHLEBOTOMY SUPPORT TECH Medication: Prior to Admission Sig: Correct Dosage/Form: Correct Sig: Albuterol-ipratropium 2.5-0.5 mg/3 mL neb marcelino 3 mL by nebulization 3 mL by nebulization ev janae 4 hours as needed for increased work of breathing Son states patient needs a refill of this medication Atorvastatin 20 mg tab 1 tab by mouth nightly 1 tab by mouth every morning Buspirone 10 mg tab 1 tab by mouth three times daily 1 tab by mouth daily Carvedilol 3.125 mg tab 3.125 mg by mouth twice daily Carvedilol 6.25 mg tab 6.25 mg by brooklynn th twice daily Clopidogrel 75 mg tab 1 tab by mouth daily 1 tab by mouth every other day Docusate sodium 250 mg cap 1 cap by mouth daily 1 cap by mouth daily as needed for constip ation Fluticasone 50 mcg/nasal spray 1 spray in each nare daily 1 spare in each nare daily as ne eded for allergies Medication added: Medication: Prior to Admission Sig: Hydrocodone-acetaminophen 7.5 mg tab 1 tab by mouth four times daily as needed for pain will be establishing with local pain clinic after discharge Brimonidine 0.2% ophth marcelino 1 drop into both eyes twice daily Dorzolamide 2% ophth marcelino 1 drop into both eyes twice daily Latanoprost 0.005% ophth marcelino 1 drop into both eyes every morning Arformoterol 15 mcg/2 mL neb marcelino 2 mL by nebulization twice daily Per son, bus system operator instructed him to mix with Budesonide marcelino Budesonide 0.5 mg/2 mL neb marcelino 2 mL by nebulization twice daily Per son, bus system operator instructed him to mix with Arformoterol marcelino Albuterol 90 mcg/puff inh 2 puffs into the lungs every 4 hours as needed for wheezing Tamsulosin 0.4 mg cap 1 cap by mouth nightly Polyethylene glycol pow 17 g by mouth daily as needed for constipation Senna 8.6 mg tab 1 tab by mouth every morning Polyvinyl alcohol 1.4 % ophth marcelino 1 drop into both eyes every morning places 5 minutes prior to prescription eye drops Loperamide 2 mg tab 1 tab by mouth twice daily as needed for diarrhea Calcium po 1000 mg by mouth every morning unsure if this contains Vitamin D Cholecalciferol po 1 tab by mouth daily unsure of strength Multiple vitamins tab 1 tab by mouth daily Removed therapy: Medication: Prior to Admission Sig: Reason for Removal: Cefdinir 125 mg/5 mL susp Take by mouth twice daily Therapy complete Hydralazine 10 mg tab 1 tab by mouth three times daily Therapy complete Lidocaine 5% patch 1 patch topically daily. Apply for 12 hours, then remove for 12 hours T herapy complete Patient denies use of recreational substances, tobacco or alcohol. Other: Medication: Prior to Admission Sig: Patient taking differently PHLEBOTOMY SUPPORT TECH as: Alprazolam 0.25 mg tab 1 tab by mouth nightly as needed for anxiety Not taking Per son, not taken ~1 year. Patient has had recent increase in anxiety and son is hoping to get a refill of this prescription as redirection has been in less effective. No fill hist ory within the last 12 months Dicyclomine 10 mg cap 1 cap by mouth four times daily before meals and nightly 1 cap by mo uth daily as needed for abdominal pain Son states patient does not need to take daily Furosemide 20 mg tab 1 tab by mouth twice daily 1 tab by mouth daily Son states asset protection professional lowered dose ~8 months ago. Best possible PHLEBOTOMY SUPPORT TECH medication list after pharmacy review: PT REPORTED TAKING NOT TAKING Medication Sig Last Dose Dispense Doc. Provider albuterol (VENTOLIN HFA) 90 mcg/puff inhaler Inhale 2 puffs into the lungs every 4 hours a s needed for Wheezing. Taking Historical Provider, albuterol-ipratropium 2.5-0.5 mg/3 mL SOLN Take 3 mLs by nebulization every 4 hours as nee ded for Increased Work of Breathing. Not Taking Historical Provider, ALPRAZolam (XANAX) 0.25 mg tablet Take 0.25 mg by mouth nightly as needed for Anxiety. Not Taking Alfredo Arciniega MD arformoterol (BROVANA) 15 MCG/2ML NEBU Take 15 mcg by nebulization 2 times daily. Taking Raymon Mccloud MD aspirin 81 mg chewable tablet Take 81 mg by mouth Daily. Taking Alfredo Arciniega MD atorvaSTATin (LIPITOR) 20 mg tablet Take 20 mg by mouth every morning. Taking Alfredo Arciniega MD brimonidine (ALPHAGAN) 0.2% ophthalmic solution Place 1 drop into both eyes 2 times daily. Taking Anup Dnoohue MD budesonide (PULMICORT) 0.5 mg/2 mL nebulizer solution Take 0.5 mg by nebulization 2 times daily. Taking Raymon Mccloud MD busPIRone (BUSPAR) 10 MG tablet Take 10 mg by mouth Daily. Taking ANGELO Degroot CALCIUM PO Take 1,000 mg by mouth Daily. Taking Alfredo Arciniega MD carvedilol (COREG) 6.25 mg tablet Take 6.25 mg by mouth 2 times daily (with breakfast & di nner). Taking Alfredo Arciniega MD cetirizine (ZYRTEC) 10 mg tablet Take 10 mg by mouth Daily. Taking Jazz Frias Cholecalciferol (VITAMIN D PO) Take 1 tablet by mouth every morning. Taking Alfredo cox MD clopidogrel (PLAVIX) 75 mg tablet Take 75 mg by mouth Every other day. Taking Karolyn lagos MD dicyclomine (BENTYL) 10 mg capsule Take 10 mg by mouth 4 times daily (before meals and nig htly). Taking Differently Alfredo Arciniega MD docusate sodium (COLACE) 250 MG capsule Take 250 mg by mouth Daily as needed for Constipat ion. Taking Alfredo Arciniega MD dorzolamide (TRUSOPT) 2% ophthalmic solution Place 1 drop into both eyes 2 times daily. Ta king Anup Donohue MD ferrous sulfate 325 mg tablet Take 325 mg by mouth daily (with breakfast). Taking Romina jada MD Demian fluticasone (FLONASE) 50 mcg/nasal spray 1 spray by Nasal route Daily as needed for Allerg ies. Taking Alfredo Arciniega MD furosemide (LASIX) 20 mg tablet Take 20 mg by mouth 2 times daily. Taking Differently ANGELO Yoder HYDROcodone-acetaminophen (NORCO) 7.5-325 mg per tablet Take 1 tablet by mouth 4 times millie ly as needed for Pain. Taking Tammy Gardiner DO latanoprost (XALATAN) 0.005% ophthalmic solution Place 1 drop into both eyes every morning . Taking Anup Donohue MD loperamide (IMODIUM A-D) 2 MG tablet Take 2 mg by mouth Twice daily as needed for Diarrhe a. Taking Historical ProviderMD metoprolol succinate (TOPROL-XL) 25 mg 24 hr tablet Take 25 mg by mouth nightly. Taking H istorical ProviderMD mirabegron (MYRBETRIQ) 25 mg ER tablet Take 25 mg by mouth Daily. Taking Alfredo polo MD Multiple Vitamin (MULTIVITAMIN) tablet Take 1 tablet by mouth Daily. Taking Historical Pascual cox MD nitroglycerin (NITROSTAT) 0.[address] 0.4 mg under the tongue every 5 minutes a s needed for Chest pain. Taking Historical MD Demian pantoprazole (PROTONIX) 40 mg tablet Take 40 mg by mouth every morning (before breakfast). Taking Historical MD Demian Polyethylene Glycol 3350 POWD Take 17 g by mouth Daily as needed for Constipation. Taking Historical MD Demian polyvinyl alcohol (LIQUITEARS) 1.4% ophthalmic solution Place 1 drop into both eyes every morning. Taking Historical ProviderMD predniSONE (DELTASONE) 10 mg tablet Take 10 mg by mouth Daily. Taking Historical Provider MD senna (SENNA) 8.6 mg tablet Take 1 tablet by mouth every morning. Taking Alfredo polo MD tamsulosin (FLOMAX) 0.4 mg CAPS Take 0.4 mg by mouth nightly. Taking Douglas Kumar MD tiotropium (SPIRIVA) 18 mcg inhalation capsule Inhale 18 mcg into the lungs Daily. Taking Alfredo Arciniega MD Medication review performed and electronically signed by Ly Guido, Communications Media Professor 11:34 Reviewed by Autumn Sutherland, PharmD 06/05/2019 12:28 Rosio garza R N - 06/04/2019 8:38 PM PDTPicc line in mid SVC after pulling back 2cm and flushing. Good p osition to use. Rosio Wilson RN - 06/04/2019 3:48 PM PDTFollowing Infusion Nurses Society standards of care; a B CANDICE 5fr triple-lumen PICC inserted x 1stick, using Ultrasound/ modified Seldinger technique. PICC advanced to CAJ and confirmed by 3cg and chest xray. Ok to use. All lumens draw bright red blood briskly and flush easily with normal saline. SBAR report to FUNMILAYO Jasmine who continu es care. Electronically signed by: Rosio Macias RN 06/04/2019 15:48 Keyur Sharma MD - 0 06/04/2019 3:40 PM PDTHospitalist follow-up In ICU. CT imaging obtained because urine and chest x-ray did not show clear-cut infiltrat e. CT of the abdomen and pelvis showed a question of a right lower lobe infiltrate in the l rommel, patient of low-lying diverticulitis above the rectum with a secondary concern of possib le malignancy, and dilatation of the intra-and extrahepatic biliary ducts thought possibly f rom ampullary stricture albeit no tumor is seen the patient has had colonoscopy reported to be normal in 08/2018 and did have MRCP in a similar timeframe because of her evaluation for TAVR included CT imaging that suggested these abnormalities (tumor of the colon and pancreas ) discussion with her son both of the studies were negative for tumors. At this point the patient having a new valve I did give a dose of ceftriaxone presuming thi s was going to be urinary source. With the urine negative she was converted to Zosyn empiri c therapy which will cover possibility of diverticulitis or evolving pneumonia.Electronicall y signed by Keyur Carvajal MD at 06/04/2019 3:43 PM Keyur Sharma MD - 06/04/2019 11:2 9 AM PDT [facility] Hospitalist Progress Note Ángela Crowley is a 88 y.o. female ASSESSMENT and PLAN: 1. Altered mental status with fever and tachycardia Today when going to discuss the patient's status with her son relative to her need for endo scopy she was found to be altered. In discussion with the nursing staff the patient had a t emp of 101.7 at about 8 AM with heart rate rising to 150 and sinus tachycardia. Apparently there was shaking chills associated with this. The patient has a TAVR. She has been withou t fevers and clinically stable up until this time. On 06/02 the patient had blood cultures o btained to assess for subacute endocarditis associated with her valve. She had her predniso ne held this morning and nursing discussion with the endoscopy lab. She is chronically on p rednisone 10 mg daily. To my exam the patient does have lower abdominal tenderness and her son reports that her bladder is tender chronically for which she takes a antispasmodic. At this point plan will be obtained to blood cultures and a straight cath urine specimen fo r culture. I am going to repeat her CBC and procalcitonin and add hepatic function panel on to her mini profile from this a.m. Following these tests I am going to initiate ceftriaxone and will review the chest x-ray and urine results when done and consider expanding the cove rage based on initial testing. Will cover patient for acute adrenal insufficiency with 100 mg IV hydrocortisone now and then every 8 hours and will see if mentation improves with this . 2. Type 2 AR versus NSTEMI Patient's troponin has trended to baseline from 05/31 value of 0.13. Patient had TAVR in 02/04 and would have had coronary angiography prior to procedure. We are continue to work on obtaining any results of coronary arteriography. 3 Abnormal TAVR Currently patient has a abnormal echocardiogram showing increased flow across her aortic va lve(3.1 m/s) and an increase in her mean gradient from [address] Umanzor has recommend ed limited echo to reassess with correction of anemia.He has also recommended EGd to assess for blood loss with plan of coumadin anticoagulation. Echo was obtained at this morning but may be abnormal because she was tachycardic all this a.m. Will us await the results and co nsider repeat with clinical improvement. 4. Anemia. Patient has multiple etiologies. I did perform a rectal exam today which was weakly Hemocc ult positive, as significant ecchymoses associated with her recent fall prior to admission a lbeit this would not be asked to explain her chronic anemia, and her LDH is elevated suggest ing a possibility of a component of hemolysis. I am going to increase her Protonix to twice daily. Colonoscopy in August 2018 and no significant abnormality was noted in discussion with her son. She had MRCP apparently also in 2017 and this showed what was thought to be a benign growth on her pancreas. Given need for anticoagulation will plan EGD(colonoscopy done in 08/2018 and reportedly nor mal) 5. Mild CHF Patient's BNP on admission was 487 and she was placed on furosemide 20 milligrams twice millie ly with a BMP currently down to 278. Chest x-ray on presentation was not compelling for aida dence of left heart failure. SUBJECTIVE: Patient this a.m. when assessed was altered. Apparently she developed a fever with a chill around 8 AM with sinus tachycardia with rates into the 150s. At the time of my assessment I was able to arouse the patient with noxious stimuli and she was able to speak in what seem ed to be a non-dysarthric speech but was altered. Her lungs sounded clear there was minimal facial asymmetry but with noxious stimuli she reached up preferably with her right hand but her left hand was also able to move. On abdominal exam she had discomfort across her lower abdomen which her son states has been present in the past for which she uses an antispasmod ic relative to her bladder. No changes were noted on her legs and her heart exam was only r emarkable for tachycardia. At the time of my assessment blood pressure was 112 with a heart rate of 100/60. The patient was saturating well on 3 L nasal cannula. VITALS: Temp: 36.9 C (98.4 F), Pulse: 109, Resp: 20, BP: 100/60, SpO2 97 % on nasal cannula wit h humidification at flow rate 3L/min Temp Min: 36.5 C (97.7 F) Max: 38.4 C (101.1 F) Weight: 55.3 kg (122 lb) Intake/Output Summary (Last 24 hours) at 06/04/2019 1129 Last data filed at 06/04/2019 1000 Gross per 24 hour Intake 780 ml Output 2825 ml Net -2045 ml PHYSICAL EXAM: Cardiovascular: Regular rate and rhythm Respiratory: Clear bilaterally without deep breaths Abdomen: Lower abdominal discomfort worst suprapubically but greater on the left lower qu adrant than right. Bowel sounds are present and there is no rebound or guarding. Extremities: Significant lower extremity ecchymosis without peripheral edema Rectal exam performed 06/02: Increased rectal sphincter tone. Rectal vault had brown stool which was lightly Hemoccult positive turning blue more slowly than my control. DIAGNOSTIC STUDIES: Available data and images were reviewed personally. Significant results and findings are a ddressed here or in the Assessment and Plan. Lab Results Component Value Date HGB 10.0 (L) 06/04/2019 HCT 32.5 (L) 06/04/2019 PLT 182 06/04/2019 WBC 9.0 06/04/2019 Lab Results Component Value Date NA 145 06/04/2019 K 3.4 06/04/2019 CL 108 (H) 06/04/2019 CO2 32 (H) 06/04/2019 CREA 0.84 06/04/2019 BUN 28 (H) 06/04/2019 MG 2.0 06/01/2019 CRP 26.80 (H) 06/02/2019 ESR 10 06/02/2019 BNP 269 (H) 06/01/2019 Glucose, POC Date/Time Value Ref Range Status 06/03/2019 22:03 95 70 - 109 mg/dL Final 06/03/2019 16:51 127 (H) 70 - 109 mg/dL Final 06/03/2019 11:33 100 70 - 109 mg/dL Final Glucose, POC Date/Time Value Ref Range Status 06/03/2019 22:03 95 70 - 109 mg/dL Final 06/03/2019 16:51 127 (H) 70 - 109 mg/dL Final 06/03/2019 11:33 100 70 - 109 mg/dL Final No results found. Total time of approximately 35 minutes was spent with the patient and/or patient's family, and/or on the patient's floor/unit, of which more than 50% was spent counseling and/or coord ination the patient's care as outlined above. Keyur Carvajal 06/04/2019 11:29 [facility] Portions of this chart may have been created with [employer] voice recognition software. Occasi onal wrong-word or sound-alike substitutions may have occurred due to the inherent owen itations of voice recognition software. Please read the chart carefully and recognize, using context, where these substitutions have occurred Clint Henry MD - 06/04/2019 8:10 AM PDT PATIENT NAME: Ángela Crowley : 1930: AGE: 88 y.o. ADMISSION DATE: 05/31/2019 HOSPITAL DAY NUMBER: [id number] PRIMARY CARE: Kathleen Escobar MD CONSULTING PROVIDER: Clint Jovel MD CARDIOLOGY PROGRESS NOTE DATE OF SERVICE: 06/04/19 SUBJECTIVE: This morning, patient is feeling good and was able to sleep all night. She is scheduled for endoscopy. There is no chest pain or chest discomfort both at rest and on exertion. Angelo álvarez denies breathlessness. There is no palpitation dizziness or lightheadedness. There i s no ankle or leg swelling. Patient can sleep on one pillow at night without difficulty nikolay athing. CURRENT SCHEDULED MEDS: albuterol-ipratropium 3 mL Nebulization RT Q6H aspirin 81 mg Oral Daily atorvaSTATin 20 mg Oral Nightly brimonidine 1 drop Both Eyes BID budesonide 0.5 mg Nebulization RT BID busPIRone 10 mg Oral Nightly carvedilol 3.125 mg Oral BID WC cetirizine 10 mg Oral Daily dicyclomine 10 mg Oral 4x Daily AC and HS docusate sodium 200 mg Oral Daily dorzolamide 1 drop Both Eyes BID ferrous sulfate 325 mg Oral Daily with breakfast fluticasone 1 spray Nasal Daily [START ON 06/05/2019] furosemide 40 mg Oral Daily hydrALAZINE 10 mg Oral TID insulin lispro 0-12 Units Subcutaneous 4x Daily WC and HS latanoprost 1 drop Both Eyes Nightly lidocaine 1 patch Transdermal Daily pantoprazole 40 mg Oral BID AC potassium chloride 20 mEq Oral Daily predniSONE 10 mg Oral Daily acetaminophen, albuterol, ALPRAZolam, Hypoglycemia Management AND POCT Glucose AND dextrose AND dextrose 10%, docusate sodium, HYDROcodone-acetaminophen, nitroglycerin, on dansetron, senna IV INFUSIONS: dextrose 10% OBJECTIVE: PHYSICAL EXAM Latest VS: BP 160/80 | Pulse 119 | Temp (!) 38.4 C (101.1 F) (Oral) | Resp 20 | Ht 1.651 m (5' 5") | Wt 54.5 kg (120 lb 2.4 oz) | SpO2 97% | BMI 19.99 kg/m Admit Weight: Weight: 55.3 kg (122 lb) Current weight: Weight: 54.5 kg (120 lb 2.4 oz) Vital sign ranges for last 24hrs: Input and output for last 24hrs: Temp: [36.5 C (97.7 F)-38.4 C (101.1 F)] 38.4 C (101.1 F) Pulse: [92-119] 119 Resp: [12-24] 20 BP: (110-238)/(55-114) 160/80 SpO2 Av.5 % Min: 85 % Max: 100 % Flow (L/min) Av.2 Min: 3 Max: 4 06/02 1901 - 06/04 0700 In: 1360 [P.O.:1360] Out: 3625 [Urine:3625] Constitutional General appearance: Elderly female individual, laying in hospital bed, well developed, well nourished, well groomed, no acute distress Cardiovascular Palp/Percussion: PMI in 5th ICS at MCL; no lifts, thrills, palp S3 or S4. Auscultation: normal S1 S2; no gallop or rub or click Murmur: Grade 2/6 holosystolic murmur heard over the upper right sternal border. Carotid arteries: pulses 2+, symmetric, no bruits Abdominal aorta: no enlargement or bruits Pedal pulses: pulses 2+, symmetric Peripheral circulation: no cyanosis, clubbing, edema, or varicosities Gastrointestinal Abdomen: soft, non-tender Liver and spleen: no enlargement Mental Status/Neurological Orientation: oriented to time, place, and person Affect/Mood: no depression, anxiety, or agitation Respiratory Respiratory effort: no intercostal retractions or use of accessory muscles Auscultation: Minimal basal crackles. LABS Recent Results (from the past 24 hour(s)) POC Glucose Collection Time: 06/03/19 11:33 Result Value Ref Range Glucose, POC 100 70 - 109 mg/dL POC Glucose Collection Time: 06/03/19 16:51 Result Value Ref Range Glucose, POC 127 (H) 70 - 109 mg/dL POC Glucose Collection Time: 06/03/19 22:03 Result Value Ref Range Glucose, POC 95 70 - 109 mg/dL Basic Metabolic Panel Collection Time: 06/04/19 6:17 Result Value Ref Range Na 145 136 - 145 mmol/L K 3.4 3.4 - 5.1 mmol/L Cl 108 (H) 98 - 107 mmol/L CO2 32 (H) 20 - 31 mmol/L Anion Gap 5 3 - 16 mmol/L Glucose 88 60 - 106 mg/dL BUN 28 (H) 9 - 23 mg/dL Creatinine 0.84 0.55 - 1.02 mg/dL eGFR if not >60 >=60 mL/min/1.73m2 Calcium 8.8 8.7 - 10.4 mg/dL BUN/Creatinine Ratio 33.3 CBC with Differential Collection Time: 06/04/19 6:17 Result Value Ref Range WBC 9.0 4.0 - 11.0 K/uL RBC 3.38 (L) 3.70 - 5.20 M/uL Hemoglobin 10.0 (L) 11.5 - 16.0 g/dL Hematocrit 32.5 (L) 34.0 - 47.0 % MCV 96.2 83.0 - 101.0 fL MCH 29.6 28.0 - 35.0 pg MCHC 30.8 (L) 32.0 - 36.0 g/dL RDW-CV 14.7 <15.0 % RDW-SD 52.1 (H) 35.1 - 46.3 fL Platelet Count 182 140 - 440 K/uL MPV 9.9 6.5 - 12.4 fL % Neutrophils 73.0 45.0 - 82.0 % % Lymphocytes 13.1 (L) 20.0 - 45.0 % % Monocytes 11.2 4.0 - 12.0 % % Eosinophils 2.0 0.0 - 5.0 % % Basophils 0.3 0.0 - 1.0 % % Immature Granulocytes 0.4 0.0 - 0.4 % Absolute Neutrophils 6.56 1.80 - 8.50 K/uL Absolute Lymphocytes 1.18 0.60 - 3.20 K/uL Absolute Monocytes 1.01 (H) 0.00 - 1.00 K/uL Absolute Eosinophils 0.18 0.00 - 0.40 K/uL Absolute Basophils 0.03 0.00 - 0.10 K/uL Absolute Immature Granulocytes 0.04 (H) 0.00 - 0.03 K/uL % nRBC 0 0 - 2 per 100 WBCs Absolute nRBC 0.00 0.00 - 0.01 K/uL Echo Limited Collection Time: 06/04/19 7:43 Result Value Ref Range Patient Weight (lbs) 120 lbs Patient Height 5'5 AV mean gradient 14.2 mmHg LVOT peak magalie 145.55 cm/s LVOT peak VTI 27.91 cm AV peak magalie 302.79 cm/s AV VTI 47.62 cm AV peak gradient 36.67 mmHg AV LVOT Peak Gradient 8.47 mmHg AV LVOT Mean Gradient 4.34 mmHg LVOT Mean Velocity 97.18 cm/s AV Mean Velocity 172.75 cm/s LA Major 0.4762 cm LVEF-TTE TRANSTHORACIC ECHO 55 % ECG: I personally independently reviewed ECG tracing during this visit (interpreted and yared led by another provider): Results for orders placed or performed during the hospital encounter of 05/31/19 ECG 12 lead Result Value Ref Range INTERPRETATION TEXT Normal sinus rhythm Small Q waves in leads V4-6:cannot rule out lateral AR age indeterminant Cannot rule out Inferior infarct , age undetermined [address] elevation in leads V4-6:consider ischemia/infarction No previous ECGs available Confirmed by UMESH JOSEPH, LEONIDAS ([id number]) on 06/01/2019 5:26:47 AM Which is compared to today's ECG 05/31/2019: 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 Potential bioprosthetic aortic valve thrombosis A. 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 Procedure was complicated with modera te perivalvular aortic valve insufficiency, requiring a second valve-in- valve replacement, 1 cell lower. 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 Peak velocity across aortic valve of 2.5 m/s, mean gradient of 11 mmHg. B. Echocardiogram 02/18/2019 shows normal left ventricular size, thickness, syst olic function and wall motion with LVEF 65-70 %, a transcatheter is aortic valve is present, prosthetic aortic valve appears to be functioning normally, no pathologic regurgitation pre sent. Uvaldo Pineda MD C. 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 D. Repeat a limited echocardiogram from 06/03/2019 showed normal left ventricul ar size, wall thickness with hyperdynamic left ventricular systolic function. LVEF is 75 to 80%. Evidence of #23 Fishman sapient 3 TAVR. There is still significant increased velocity across aortic valve of 3 m/s, peak gradient of 34 mmHg, mean gradient 14 mmHg. When compare d echocardiography on (hemoglobin of 7), no significant changes. E. This morning, patient is feeling good and was able to sleep all night. She is schedule d for endoscopy. There is no signs and symptoms of overt congestive heart failure. He is i n a class I of [employer] [employer] functional class. There is no fluid retention on physical examination. 2. Coronary artery disease A. Left heart cath in [facility] on 02/16/2019 suggest noncritical CAD. However, r eport is not available. B. Troponin earlier was elevated at 0.13, however, patient has no chest pain no evidence of heart failure. C. She is treated appropriately with combination of aspirin, statin and beta-barbara. 3. Essential hypertension A. Blood pressure this morning is well controlled. 4. Anemia with GI bleeding A. She was admitted to [place] on 05/31/2019 because of falls and feeling wea k. She was found to have GI bleeding with abnormal/positive guaiac test with significant ane carson with hemoglobin went down to 7.3. Patient received blood transfusion. B. Patient is scheduled for endoscopy. PLAN: 1. Patient may proceed with endoscopy procedure to determine the cause of GI bleeding. 2. We will start Coumadin to treat potential aortic valve thrombosis as soon as she is conrad red from GI bleeding standpoint. erri, am acting as a scribe on behalf of, and in the presence of Clint durham MD. I have reviewed and edited this note. Kerri Sethi CMA 06/04/2019 IClint MD, personally performed the services described in this documentation, as scribed in my presence and it is both accurate and complete. Clint Jovel MD [facility] 06/04/2019 8:10 Portions of this chart may have been created with [employer] voice recognition software. Occasi onal wrong-word or sound-alike substitutions may have occurred due to the inherent owen itations of voice recognition software. Please read the chart carefully and recognize, using context, where these substitutions have occurred. eyur Carvajal MD - 06/03/2019 9:28 PM PDT [facility] Hospitalist Progress Note Ángela Crowley is a 88 y.o. female ASSESSMENT and PLAN: 1. Type 2 AR versus NSTEMI Patient's troponin has trended to baseline from 05/31 value of 0.13. Patient had TAVR in 02/04 and would have had coronary angiography prior to procedure. [facility] queried today and has no record of this. She was referred from [facility](Dr Cochran) and will contact the m in am to see if coronaries have been recently studied. 2. Abnormal TAVR Currently patient has a abnormal echocardiogram showing increased flow across her aortic va lve(3.1 m/s) and an increase in her mean gradient from [address] Umanzor has recommend ed limited echo to reassess with correction of anemia.He has also recommended EGd to assess for blood loss with plan of coumadin anticoagulation 2. Anemia. Patient has multiple etiologies. I did perform a rectal exam today which was weakly Hemocc ult positive, as significant ecchymoses associated with her recent fall prior to admission a lbeit this would not be asked to explain her chronic anemia, and her LDH is elevated suggest ing a possibility of a component of hemolysis. I am going to increase her Protonix to twice daily. Colonoscopy in August 2018 and no significant abnormality was noted in discussion with her son. She had MRCP apparently also in 2018 and this showed what was thought to be a benign growth on her pancreas. Given need for anticoagulation will plan EGD(colonoscopy done in 08/2018 and reportedly nor mal) 3. Mild CHF Patient's BNP on admission was 487 and she was placed on furosemide 20 milligrams twice millie ly with a BMP currently down to 278. Chest x-ray on presentation was not compelling for aida dence of left heart failure. SUBJECTIVE: Currently states she is feeling better. She denies nausea she has not seen recent blood in her stools. She does have some chronic midepigastric discomfort. Reports 100 pounds of we ight loss albeit her son reports that because he has begun managing her diet is placed on a healthy diet. VITALS: Temp: 36.7 C (98.1 F), Pulse: 92, Resp: 18, BP: 122/59, SpO2 98 % on nasal cannula at f low rate 3L/min Temp Min: 36.5 C (97.7 F) Max: 37.4 C (99.3 F) Weight: 55.3 kg (122 lb) Intake/Output Summary (Last 24 hours) at 06/03/20192129 Last data filed at 06/03/2019 2041 Gross per 24 hour Intake 860 ml Output 1975 ml Net -1115 ml PHYSICAL EXAM: Cardiovascular: Regular rate and rhythm Respiratory: Few basilar crackles Abdomen: Abdomen is soft with mild midepigastric discomfort Extremities: Significant lower extremity ecchymosis without peripheral edema Rectal exam performed 06/02: Increased rectal sphincter tone. Rectal vault had brown stool which was lightly Hemoccult positive turning blue more slowly than my control. DIAGNOSTIC STUDIES: Available data and images were reviewed personally. Significant results and findings are a ddressed here or in the Assessment and Plan. Lab Results Component Value Date HGB 9.5 (L) 06/03/2019 HCT 31.2 (L) 06/03/2019 PLT 190 06/03/2019 WBC 8.1 06/03/2019 Lab Results Component Value Date NA 142 06/03/2019 K 3.5 06/03/2019 CL 102 06/03/2019 CO2 32 (H) 06/03/2019 CREA 0.78 06/03/2019 BUN 19 06/03/2019 MG 2.0 06/01/2019 CRP 26.80 (H) 06/02/2019 ESR 10 06/02/2019 BNP 269 (H) 06/01/2019 Glucose, POC Date/Time Value Ref Range Status 06/03/2019 16:51 127 (H) 70 - 109 mg/dL Final 06/03/2019 11:33 100 70 - 109 mg/dL Final 06/03/2019 06:26 97 70 - 109 mg/dL Final Glucose, POC Date/Time Value Ref Range Status 06/03/2019 16:51 127 (H) 70 - 109 mg/dL Final 06/03/2019 11:33 100 70 - 109 mg/dL Final 06/03/2019 06:26 97 70 - 109 mg/dL Final No results found. Total time of approximately 25 minutes was spent with the patient and/or patient's family, and/or on the patient's floor/unit, of which more than 50% was spent counseling and/or coord ination the patient's care as outlined above. Keyur Carvajal 06/03/2019 21:30 [facility] Portions of this chart may have been created with [employer] voice recognition software. Occasi onal wrong-word or sound-alike substitutions may have occurred due to the inherent owen itations of voice recognition software. Please read the chart carefully and recognize, using context, where these substitutions have occurred arker, Keyur Murray MD - 0 06/02/2019 6:23 PM PDT [facility] Hospitalist Progress Note Ángela Crowley is a 88 y.o. female ASSESSMENT and PLAN: 1. Type 2 AR versus NSTEMI Patient's troponin has really turned to baseline from 05/31 value of 0.13. Currently rosalie bray has a abnormal cardiogram showing increased flow across her aortic valve(3.1 m/s) and an i ncrease in her mean gradient from 11 to [address] Umanzor who will see the p atient in consultation thrombus or other abnormality associated with the valve. Going to ob tain blood cultures. Coronary angiography was requested from [facility] but this compon ent was not received. She does not know of a history of stenting in the past. Diuretic incr eased transiently because of transfusion. I am going obtain 2 sets of blood cultures josesitosarahy murray of the abnormality of blood flow across to her TAVR to rule out the possibility of endocar ditis. 2. Anemia. Patient has multiple etiologies. I did perform a rectal exam today which was weakly Hemocc ult positive, as significant ecchymoses associated with her recent fall prior to admission a lbeit this would not be asked to explain her chronic anemia, and her LDH is elevated suggest ing a possibility of a component of hemolysis. I am going to increase her Protonix to twice daily. Colonoscopy in August 2018 and no significant abnormality was noted in discussion with her son. She had MRCP apparently also in 2018 and this showed what was thought to be a benign growth on her pancreas. 3. Mild CHF Patient's BNP on admission was 487 and she was placed on furosemide milligrams twice daily with a BMP currently down to 278. Chest x-ray on presentation was not compelling for eviden ce of left heart failure. SUBJECTIVE: Currently states she is feeling better. She denies nausea she has not seen recent blood in her stools. She does have some chronic midepigastric discomfort. Reports 100 pounds of we ight loss albeit her son reports that because he has begun managing her diet is placed on a healthy diet. VITALS: Temp: 36.4 C (97.6 F), Pulse: 92, Resp: 20, BP: 118/59, SpO2 99 % on nasal cannula at f low rate 3L/min Temp Min: 36 C (96.8 F) Max: 36.7 C (98.1 F) Weight: 55.3 kg (122 lb) Intake/Output Summary (Last 24 hours) at 06/02/2019 1363 Last data filed at 06/02/2019 1756 Gross per 24 hour Intake 978 ml Output 3225 ml Net -2247 ml PHYSICAL EXAM: Cardiovascular: Regular rate and rhythm Respiratory: Basilar crackles Abdomen: Abdomen is soft with mild midepigastric discomfort Extremities: Significant lower extremity ecchymosis without peripheral edema Rectal exam: Decreased rectal sphincter tone. Rectal vault had brown stool which was light ly Hemoccult positive turning blue more slowly than my control. DIAGNOSTIC STUDIES: Available data and images were reviewed personally. Significant results and findings are a ddressed here or in the Assessment and Plan. Lab Results Component Value Date HGB 10.0 (L) 06/02/2019 HCT 31.8 (L) 06/02/2019 PLT 183 06/02/2019 WBC 6.4 06/02/2019 Lab Results Component Value Date NA 140 06/01/2019 K 3.9 06/01/2019 CL 105 06/01/2019 CO2 30 06/01/2019 CREA 0.84 06/01/2019 BUN 18 06/01/2019 MG 2.0 06/01/2019 BNP 269 (H) 06/01/2019 Glucose, POC Date/Time Value Ref Range Status 06/02/2019 16:56 114 (H) 70 - 109 mg/dL Final Comment: Glu2: Use This Result 06/02/2019 11:56 130 (H) 70 - 109 mg/dL Final 06/02/2019 06:24 82 70 - 109 mg/dL Final Glucose, POC Date/Time Value Ref Range Status 06/02/2019 16:56 114 (H) 70 - 109 mg/dL Final Comment: Glu2: Use This Result 06/02/2019 11:56 130 (H) 70 - 109 mg/dL Final 06/02/2019 06:24 82 70 - 109 mg/dL Final Ct Head Wo Contrast Result Date: 06/01/2019 CT HEAD WITHOUT CONTRAST CLINICAL INFORMATION: Patient fell and hit her head. COMPARISON: N one. PROCEDURE: Axial images were obtained through the head without IV contrast. Multiplanar reformations were obtained from the acquisition data. At least one of the following CT dose optimization techniques were used: Automated exposure control; Adjustment of mA and/or kV a ccording to patient size; Use of iterative reconstruction technique. HEAD FINDINGS: BRAIN: No areas of increased attenuation to suggest intracranial hemorrhage. There is no mass, mass effect, or midline shift. There are no abnormal extra-axial fluid or air collections. The re is preservation of the benitez-white differentiation at this time. There is mild cerebral at rophy. There is appropriate associated prominence of the ventricles. There are mild-to-mod erate scattered regions of periventricular and subcortical white matter low density. Severe intracranial arteriosclerosis. There appear to be small bilateral basal ganglia lacunar infa rcts. SCALP/ CALVARIUM: The scalp and skull are intact and are unremarkable. SINUSES / ORBIT S/ MASTOIDS: The visible mastoid air cells and paranasal sinuses are clear. Evidence of bila teral lens replacements. IMPRESSION- 1. No acute traumatic intracranial finding. No acute intracranial hemorrhage. 2. Mild diffuse age related volume loss and mild to moderate periv entricular and subcortical white matter hypodensity likely suggesting chronic microvascular ischemic gliosis. 3. Severe intracranial arteriosclerosis. Dictated and Signed by: Bartolome israel MD Electronically signed: 06/01/2019 9:15 AM Total time of approximately 25 minutes was spent with the patient and/or patient's family, and/or on the patient's floor/unit, of which more than 50% was spent counseling and/or coord ination the patient's care as outlined above. Keyur Carvajal 06/02/2019 18:23 [facility] Portions of this chart may have been created with [employer] voice recognition software. Occasi onal wrong-word or sound-alike substitutions may have occurred due to the inherent owen itations of voice recognition software. Please read the chart carefully and recognize, using context, where these substitutions have occurred arkerKeyur MD - 0 06/01/2019 6:47 PM PDT [facility] Hospitalist Progress Note Ángela Crowley is a 88 y.o. female ASSESSMENT and PLAN: 1. Type 2 AR versus NSTEMI Patient's troponin has really turned to baseline from 05/31 value of 0.13. Currently rosalie bray has a abnormal cardiogram showing increased flow across her aortic valve(3.1 m/s) and an i ncrease in her mean gradient from 11 to [address]. [address] Noé larsen and he will see the patient in consultation to assess for thrombus or other abnormal ity associated with the valve. Otherwise this patient had a TAVR and should have had a ventriculogram a coronary angiograp hy and will try to obtain these records from [facility]. 2. Anemia. Patient has multiple etiologies. Hemoccults have been ordered and the patient certainly wi th her TAVR could be hemolyzing cells. In addition she has ecchymosis on her legs. At this point will obtain Hemoccult results. We will continue to follow blood counts. I did discu ss the case with her son who is requesting consideration of blood products transfusion and heidi murray agreed to repeat her blood count this evening and based on results we will consider transf usion. 3. Mild CHF Patient's BNP on admission was 487 and she was placed on furosemide milligrams twice daily with a BMP currently down to 269. Chest x-ray on presentation was not compelling for eviden ce of left heart failure. SUBJECTIVE: Currently states she is feeling better. She has chronic midepigastric abdominal discomfort and denies that this is changed in character from her baseline. VITALS: Afebrile, HR 88-108, 144/77 I/O's -308 PHYSICAL EXAM: Cardiovascular: Regular rate and rhythm Respiratory: Basilar crackles Abdomen: Abdomen is soft with mild midepigastric discomfort Extremities: Significant lower extremity ecchymosis without peripheral edema DIAGNOSTIC STUDIES: Available data and images were reviewed personally. Significant results and findings are a ddressed here or in the Assessment and Plan. Results for CARLINE ÁNGELA LORENA ( ) as of 06/04/2019 12:52 Ref. Range 06/01/2019 02:13 06/01/2019 21:16 WBC Latest Ref Range: 4.0 - 11.0 K/uL 6.4 5.0 RBC COUNT Latest Ref Range: 3.70 - 5.20 M/uL 2.64 (L) 2.51 (L) Hemoglobin Latest Ref Range: 11.5 - 16.0 g/dL 7.7 (L) 7.3 (LL) Hematocrit Latest Ref Range: 34.0 - 47.0 % 25.3 (L) 24.3 (L) MCV Latest Ref Range: 83.0 - 101.0 fL 95.8 96.8 MCH Latest Ref Range: 28.0 - 35.0 pg 29.2 29.1 MCHC Latest Ref Range: 32.0 - 36.0 g/dL 30.4 (L) 30.0 (L) RDW-CV Latest Ref Range: <15.0 % 14.6 14.2 RDW-SD Latest Ref Range: 35.1 - 46.3 fL 51.4 (H) 51.1 (H) Platelet Count Latest Ref Range: 140 - 440 K/uL 143 155 MPV Latest Ref Range: 6.5 - 12.4 fL 10.1 10.1 Lab Results Component Value Date NA 140 06/01/2019 K 3.9 06/01/2019 CL 105 06/01/2019 CO2 30 06/01/2019 CREA 0.84 06/01/2019 BUN 18 06/01/2019 MG 2.0 06/01/2019 BNP 269 (H) 06/01/2019 Ct Head Wo Contrast Result Date: 06/01/2019 CT HEAD WITHOUT CONTRAST CLINICAL INFORMATION: Patient fell and hit her head. COMPARISON: N one. PROCEDURE: Axial images were obtained through the head without IV contrast. Multiplanar reformations were obtained from the acquisition data. At least one of the following CT dose optimization techniques were used: Automated exposure control; Adjustment of mA and/or kV a ccording to patient size; Use of iterative reconstruction technique. HEAD FINDINGS: BRAIN: No areas of increased attenuation to suggest intracranial hemorrhage. There is no mass, mass effect, or midline shift. There are no abnormal extra-axial fluid or air collections. The re is preservation of the benitez-white differentiation at this time. There is mild cerebral at rophy. There is appropriate associated prominence of the ventricles. There are mild-to-mod erate scattered regions of periventricular and subcortical white matter low density. Severe intracranial arteriosclerosis. There appear to be small bilateral basal ganglia lacunar infa rcts. SCALP/ CALVARIUM: The scalp and skull are intact and are unremarkable. SINUSES / ORBIT S/ MASTOIDS: The visible mastoid air cells and paranasal sinuses are clear. Evidence of bila teral lens replacements. IMPRESSION- 1. No acute traumatic intracranial finding. No acute intracranial hemorrhage. 2. Mild diffuse age related volume loss and mild to moderate periv entricular and subcortical white matter hypodensity likely suggesting chronic microvascular ischemic gliosis. 3. Severe intracranial arteriosclerosis. Dictated and Signed by: Bartolome israel MD Electronically signed: 06/01/2019 9:15 AM Total time of approximately 25 minutes was spent with the patient and/or patient's family, and/or on the patient's floor/unit, of which more than 50% was spent counseling and/or coord ination the patient's care as outlined above. Keyur Carvajal 06/02/2019 18:47 [facility] Portions of this chart may have been created with [employer] voice recognition software. Occasi onal wrong-word or sound-alike substitutions may have occurred due to the inherent owen itations of voice recognition software. Please read the chart carefully and recognize, using context, where these substitutions have occurred documented in this enc ounter Plan of Treatment +--------+ + + + + | Date | Type | Specialty | Care Team | Description | +--------+ + + + + | 03/23/ | Office | Anticoagulation | García Harris, | | | 2019 | Visit | | [address] | | | | | | [place] | | | | | | [id number] | | | | | | | | +--------+ + + + + | 04/11/ | Appointment | Radiology | Shawn Michael | | | 2019 | | | MD [address] | | | | | | [address] [place] | | | | | | [place] [address] | | | | | | [phone] | | | | | | | | +--------+ + + + + | 04/13/ | Office | Cardiology | Shawn Michael | | | 2019 | Visit | | MD [address] | | | | | | [address] [place] | | | | | | [place] [address] | | | | | | [phone] | | | | | | | | +--------+ + + + + + +------+--------+ + + | Name | Type | Priori | Associated Diagnoses | Date/Time | | | | ty | | | + +------+--------+ + + | ED INFORMATION | MICHAEL | Routin | | 05/31/2019 1:24 PM | | EXCHANGE | | e | | PDT | + +------+--------+ + + + + +--------+ + + | Name | Type | Priori | Associated Diagnoses | Order Schedule | | | | ty | | | + + +--------+ + + | Referral to Home | Outpatient | Routin | Acute on chronic | Ordered: 06/12/2019 | | Health | Referral | e | diastolic heart | | | | | | failure (HCC) | | + + +--------+ + + documented as of this encounter Procedures + +--------+ + + + | Procedure Name | Priori | Date/Time | Associated Diagnosis | Comments | | | ty | | | | + +--------+ + + + | POC GLUCOSE | Routin | 06/12/2019 | | Results for this | | | e | 12:06 PM | | procedure are in the | | | | PDT | | results section. | + +--------+ + + + | PROTIME INR | Routin | 06/12/2019 | | Results for this | | | e | 6:22 AM | | procedure are in the | | | | PDT | | results section. | + +--------+ + + + | CBC NO DIFFERENTIAL | Routin | 06/12/2019 | | Results for this | | | e | 6:22 AM | | procedure are in the | | | | PDT | | results section. | + +--------+ + + + | B TYPE NATRIURETIC | Routin | 06/12/2019 | | Results for this | | PEPTIDE | e | 6:22 AM | | procedure are in the | | | | PDT | | results section. | + +--------+ + + + | HEMOGLOBIN A1C | Routin | 06/12/2019 | | Results for this | | | e | 6:22 AM | | procedure are in the | | | | PDT | | results section. | + +--------+ + + + | BASIC METABOLIC | Routin | 06/12/2019 | | Results for this | | PANEL | e | 6:22 AM | | procedure are in the | | | | PDT | | results section. | + +--------+ + + + | POC GLUCOSE | Routin | 06/11/2019 | | Results for this | | | e | 9:05 PM | | procedure are in the | | | | PDT | | results section. | + +--------+ + + + | XR CHEST AP PORTABLE | STAT | 06/11/2019 | | Results for this | | | | 6:01 PM | | procedure are in the | | | | PDT | | results section. | + +--------+ + + + | POC GLUCOSE | Routin | 06/11/2019 | | Results for this | | | e | 4:58 PM | | procedure are in the | | | | PDT | | results section. | + +--------+ + + + | POC GLUCOSE | Routin | 06/11/2019 | | Results for this | | | e | 12:09 PM | | procedure are in the | | | | PDT | | results section. | + +--------+ + + + | COLONOSCOPY | | 06/11/2019 | Gastrointestinal | | | | | 7:58 AM | hemorrhage, | | | | | PDT | unspecified | | | | | | gastrointestinal | | | | | | hemorrhage type | | + +--------+ + + + | COLONOSCOPY | Routin | 06/11/2019 | | Results for this | | | e | 7:45 AM | | procedure are in the | | | | PDT | | results section. | + +--------+ + + + | PROTIME INR | Routin | 06/11/2019 | | Results for this | | | e | 6:33 AM | | procedure are in the | | | | PDT | | results section. | + +--------+ + + + | CBC NO DIFFERENTIAL | Routin | 06/11/2019 | | Results for this | | | e | 6:33 AM | | procedure are in the | | | | PDT | | results section. | + +--------+ + + + | BASIC METABOLIC | Routin | 06/11/2019 | | Results for this | | PANEL | e | 6:33 AM | | procedure are in the | | | | PDT | | results section. | + +--------+ + + + | POC GLUCOSE | Routin | 06/10/2019 | | Results for this | | | e | 8:15 PM | | procedure are in the | | | | PDT | | results section. | + +--------+ + + + | POC GLUCOSE | Routin | 06/10/2019 | | Results for this | | | e | 4:46 PM | | procedure are in the | | | | PDT | | results section. | + +--------+ + + + | POC GLUCOSE | Routin | 06/10/2019 | | Results for this | | | e | 12:17 PM | | procedure are in the | | | | PDT | | results section. | + +--------+ + + + | PROTIME INR | Routin | 06/10/2019 | | Results for this | | | e | 10:39 AM | | procedure are in the | | | | PDT | | results section. | + +--------+ + + + | POC GLUCOSE | Routin | 06/10/2019 | | Results for this | | | e | 6:40 AM | | procedure are in the | | | | PDT | | results section. | + +--------+ + + + | CBC NO DIFFERENTIAL | Routin | 06/10/2019 | | Results for this | | | e | 5:16 AM | | procedure are in the | | | | PDT | | results section. | + +--------+ + + + | BASIC METABOLIC | Routin | 06/10/2019 | | Results for this | | PANEL | e | 5:16 AM | | procedure are in the | | | | PDT | | results section. | + +--------+ + + + | POC GLUCOSE | Routin | 06/09/2019 | | Results for this | | | e | 9:44 PM | | procedure are in the | | | | PDT | | results section. | + +--------+ + + + | POC GLUCOSE | Routin | 06/09/2019 | | Results for this | | | e | 5:58 PM | | procedure are in the | | | | PDT | | results section. | + +--------+ + + + | POC GLUCOSE | Routin | 06/09/2019 | | Results for this | | | e | 12:15 PM | | procedure are in the | | | | PDT | | results section. | + +--------+ + + + | POC GLUCOSE | Routin | 06/09/2019 | | Results for this | | | e | 7:01 AM | | procedure are in the | | | | PDT | | results section. | + +--------+ + + + | CBC NO DIFFERENTIAL | Routin | 06/09/2019 | | Results for this | | | e | 4:24 AM | | procedure are in the | | | | PDT | | results section. | + +--------+ + + + | BASIC METABOLIC | Routin | 06/09/2019 | | Results for this | | PANEL | e | 4:24 AM | | procedure are in the | | | | PDT | | results section. | + +--------+ + + + | POC GLUCOSE | Routin | 06/08/2019 | | Results for this | | | e | 10:09 PM | | procedure are in the | | | | PDT | | results section. | + +--------+ + + + | RESPIRATORY THERAPY | Routin | 06/08/2019 | | | | COMMUNICATION | e | 5:38 PM | | | | | | PDT | | | + +--------+ + + + | PERFORM HOME O2 | Routin | 06/08/2019 | | | | EVALUATION | e | 5:38 PM | | | | | | PDT | | | + +--------+ + + + | POC GLUCOSE | Routin | 06/08/2019 | | Results for this | | | e | 5:15 PM | | procedure are in the | | | | PDT | | results section. | + +--------+ + + + | POC GLUCOSE | Routin | 06/08/2019 | | Results for this | | | e | 11:27 AM | | procedure are in the | | | | PDT | | results section. | + +--------+ + + + | POC GLUCOSE | Routin | 06/08/2019 | | Results for this | | | e | 6:44 AM | | procedure are in the | | | | PDT | | results section. | + +--------+ + + + | PROTIME INR | Routin | 06/08/2019 | | Results for this | | | e | 4:47 AM | | procedure are in the | | | | PDT | | results section. | + +--------+ + + + | CBC WITH | Routin | 06/08/2019 | | Results for this | | DIFFERENTIAL | e | 4:47 AM | | procedure are in the | | | | PDT | | results section. | + +--------+ + + + | POC GLUCOSE | Routin | 06/07/2019 | | Results for this | | | e | 10:52 PM | | procedure are in the | | | | PDT | | results section. | + +--------+ + + + | POC GLUCOSE | Routin | 06/07/2019 | | Results for this | | | e | 4:49 PM | | procedure are in the | | | | PDT | | results section. | + +--------+ + + + | POC GLUCOSE | Routin | 06/07/2019 | | Results for this | | | e | 12:11 PM | | procedure are in the | | | | PDT | | results section. | + +--------+ + + + | POC GLUCOSE | Routin | 06/07/2019 | | Results for this | | | e | 10:22 AM | | procedure are in the | | | | PDT | | results section. | + +--------+ + + + | HELICOBACTER PYLORI | Routin | 06/07/2019 | | Results for this | | BIOPSY | e | 8:24 AM | | procedure are in the | | | | PDT | | results section. | + +--------+ + + + | POC GLUCOSE | Routin | 06/07/2019 | | Results for this | | | e | 8:19 AM | | procedure are in the | | | | PDT | | results section. | + +--------+ + + + | EGD | | 06/07/2019 | GI Bleed | | | | | 8:03 AM | | | | | | PDT | | | + +--------+ + + + | EGD | Routin | 06/07/2019 | | Results for this | | | e | 7:41 AM | | procedure are in the | | | | PDT | | results section. | + +--------+ + + + | PROCALCITONIN, SERUM | Routin | 06/07/2019 | | Results for this | | | e | 4:27 AM | | procedure are in the | | | | PDT | | results section. | + +--------+ + + + | CBC WITH | Routin | 06/07/2019 | | Results for this | | DIFFERENTIAL | e | 4:27 AM | | procedure are in the | | | | PDT | | results section. | + +--------+ + + + | MAGNESIUM | Add-On | 06/07/2019 | | Results for this | | | | 4:27 AM | | procedure are in the | | | | PDT | | results section. | + +--------+ + + + | COMPREHENSIVE | Routin | 06/07/2019 | | Results for this | | METABOLIC PANEL | e | 4:27 AM | | procedure are in the | | | | PDT | | results section. | + +--------+ + + + | POC GLUCOSE | Routin | 06/06/2019 | | Results for this | | | e | 8:54 PM | | procedure are in the | | | | PDT | | results section. | + +--------+ + + + | EXTRA LAVENDER TOP | Routin | 06/06/2019 | | Results for this | | TUBE | e | 7:16 PM | | procedure are in the | | | | PDT | | results section. | + +--------+ + + + | PROCALCITONIN, SERUM | Routin | 06/06/2019 | | Results for this | | | e | 7:14 PM | | procedure are in the | | | | PDT | | results section. | + +--------+ + + + | POC GLUCOSE | Routin | 06/06/2019 | | Results for this | | | e | 5:25 PM | | procedure are in the | | | | PDT | | results section. | + +--------+ + + + | POC GLUCOSE | Routin | 06/06/2019 | | Results for this | | | e | 11:42 AM | | procedure are in the | | | | PDT | | results section. | + +--------+ + + + | CULTURE, BLOOD | STAT | 06/06/2019 | | Results for this | | | | 8:49 AM | | procedure are in the | | | | PDT | | results section. | + +--------+ + + + | EXTRA GREEN TOP TUBE | Routin | 06/06/2019 | | Results for this | | | e | 8:24 AM | | procedure are in the | | | | PDT | | results section. | + +--------+ + + + | PROCALCITONIN, SERUM | Routin | 06/06/2019 | | Results for this | | | e | 8:07 AM | | procedure are in the | | | | PDT | | results section. | + +--------+ + + + | CULTURE, BLOOD | STAT | 06/06/2019 | | Results for this | | | | 8:07 AM | | procedure are in the | | | | PDT | | results section. | + +--------+ + + + | POC GLUCOSE | Routin | 06/06/2019 | | Results for this | | | e | 6:46 AM | | procedure are in the | | | | PDT | | results section. | + +--------+ + + + | XR CHEST AP PORTABLE | Routin | 06/06/2019 | | Results for this | | | e | 5:39 AM | | procedure are in the | | | | PDT | | results section. | + +--------+ + + + | PROCALCITONIN, SERUM | Routin | 06/06/2019 | | Results for this | | | e | 4:13 AM | | procedure are in the | | | | PDT | | results section. | + +--------+ + + + | SEDIMENTATION RATE | Routin | 06/06/2019 | | Results for this | | | e | 4:13 AM | | procedure are in the | | | | PDT | | results section. | + +--------+ + + + | CBC WITH | Routin | 06/06/2019 | | Results for this | | DIFFERENTIAL | e | 4:13 AM | | procedure are in the | | | | PDT | | results section. | + +--------+ + + + | COMPREHENSIVE | Routin | 06/06/2019 | | Results for this | | METABOLIC PANEL | e | 4:13 AM | | procedure are in the | | | | PDT | | results section. | + +--------+ + + + | POC GLUCOSE | Routin | 06/05/2019 | | Results for this | | | e | 9:11 PM | | procedure are in the | | | | PDT | | results section. | + +--------+ + + + | POC GLUCOSE | Routin | 06/05/2019 | | Results for this | | | e | 5:01 PM | | procedure are in the | | | | PDT | | results section. | + +--------+ + + + | POC GLUCOSE | Routin | 06/05/2019 | | Results for this | | | e | 11:43 AM | | procedure are in the | | | | PDT | | results section. | + +--------+ + + + | POC GLUCOSE | Routin | 06/05/2019 | | Results for this | | | e | 7:07 AM | | procedure are in the | | | | PDT | | results section. | + +--------+ + + + | EXTRA LAVENDER TOP | Routin | 06/05/2019 | | Results for this | | TUBE | e | 6:04 AM | | procedure are in the | | | | PDT | | results section. | + +--------+ + + + | EXTRA BLUE TOP TUBE | Routin | 06/05/2019 | | Results for this | | | e | 6:04 AM | | procedure are in the | | | | PDT | | results section. | + +--------+ + + + | BASIC METABOLIC | Timed | 06/05/2019 | | Results for this | | PANEL | | 6:04 AM | | procedure are in the | | | | PDT | | results section. | + +--------+ + + + | BASIC METABOLIC | Routin | 06/05/2019 | | Results for this | | PANEL | e | 4:24 AM | | procedure are in the | | | | PDT | | results section. | + +--------+ + + + | POC GLUCOSE | Routin | 06/04/2019 | | Results for this | | | e | 9:04 PM | | procedure are in the | | | | PDT | | results section. | + +--------+ + + + | XR CHEST AP PORTABLE | STAT | 06/04/2019 | Fall, initial | Results for this | | | | 8:40 PM | encounter | procedure are in the | | | | PDT | | results section. | + +--------+ + + + | POC GLUCOSE | Routin | 06/04/2019 | | Results for this | | | e | 5:08 PM | | procedure are in the | | | | PDT | | results section. | + +--------+ + + + | XR CHEST AP PORTABLE | STAT | 06/04/2019 | Fall, initial | Results for this | | | | 3:37 PM | encounter | procedure are in the | | | | PDT | | results section. | + +--------+ + + + | CT ABDOMEN PELVIS W | Routin | 06/04/2019 | | Results for this | | CONTRAST | e | 2:09 PM | | procedure are in the | | | | PDT | | results section. | + +--------+ + + + | CT HEAD WO CONTRAST | Routin | 06/04/2019 | | Results for this | | | e | 2:09 PM | | procedure are in the | | | | PDT | | results section. | + +--------+ + + + | CULTURE, MRSA | Routin | 06/04/2019 | | Results for this | | | e | 1:29 PM | | procedure are in the | | | | PDT | | results section. | + +--------+ + + + | URINALYSIS WITH | Routin | 06/04/2019 | | Results for this | | MICROSCOPIC WITH | e | 12:12 PM | | procedure are in the | | CULTURE IF INDICATED | | PDT | | results section. | + +--------+ + + + | PROCALCITONIN, SERUM | Routin | 06/04/2019 | | Results for this | | | e | 11:54 AM | | procedure are in the | | | | PDT | | results section. | + +--------+ + + + | DIFFERENTIAL, MANUAL | Routin | 06/04/2019 | | Results for this | | | e | 11:54 AM | | procedure are in the | | | | PDT | | results section. | + +--------+ + + + | CULTURE, BLOOD | STAT | 06/04/2019 | | Results for this | | | | 11:54 AM | | procedure are in the | | | | PDT | | results section. | + +--------+ + + + | CULTURE, BLOOD | STAT | 06/04/2019 | | Results for this | | | | 11:54 AM | | procedure are in the | | | | PDT | | results section. | + +--------+ + + + | CBC WITH | Routin | 06/04/2019 | | Results for this | | DIFFERENTIAL | e | 11:54 AM | | procedure are in the | | | | PDT | | results section. | + +--------+ + + + | HEPATIC FUNCTION | Routin | 06/04/2019 | | Results for this | | PANEL | e | 11:54 AM | | procedure are in the | | | | PDT | | results section. | + +--------+ + + + | BASIC METABOLIC | Add-On | 06/04/2019 | | Results for this | | PANEL | | 11:54 AM | | procedure are in the | | | | PDT | | results section. | + +--------+ + + + | POC GLUCOSE | Routin | 06/04/2019 | | Results for this | | | e | 11:48 AM | | procedure are in the | | | | PDT | | results section. | + +--------+ + + + | XR CHEST AP PORTABLE | STAT | 06/04/2019 | | Results for this | | | | 11:29 AM | | procedure are in the | | | | PDT | | results section. | + +--------+ + + + | ECHO LIMITED | Routin | 06/04/2019 | | Results for this | | | e | 7:43 AM | | procedure are in the | | | | PDT | | results section. | + +--------+ + + + | CBC WITH | Routin | 06/04/2019 | | Results for this | | DIFFERENTIAL | e | 6:17 AM | | procedure are in the | | | | PDT | | results section. | + +--------+ + + + | BASIC METABOLIC | Routin | 06/04/2019 | | Results for this | | PANEL | e | 6:17 AM | | procedure are in the | | | | PDT | | results section. | + +--------+ + + + | POC GLUCOSE | Routin | 06/03/2019 | | Results for this | | | e | 10:03 PM | | procedure are in the | | | | PDT | | results section. | + +--------+ + + + | POC GLUCOSE | Routin | 06/03/2019 | | Results for this | | | e | 4:51 PM | | procedure are in the | | | | PDT | | results section. | + +--------+ + + + | POC GLUCOSE | Routin | 06/03/2019 | | Results for this | | | e | 11:33 AM | | procedure are in the | | | | PDT | | results section. | + +--------+ + + + | EXTRA LAVENDER TOP | Routin | 06/03/2019 | | Results for this | | TUBE | e | 7:12 AM | | procedure are in the | | | | PDT | | results section. | + +--------+ + + + | CBC WITH | Routin | 06/03/2019 | | Results for this | | DIFFERENTIAL | e | 7:12 AM | | procedure are in the | | | | PDT | | results section. | + +--------+ + + + | POC GLUCOSE | Routin | 06/03/2019 | | Results for this | | | e | 6:26 AM | | procedure are in the | | | | PDT | | results section. | + +--------+ + + + | BASIC METABOLIC | Routin | 06/03/2019 | | Results for this | | PANEL | e | 5:39 AM | | procedure are in the | | | | PDT | | results section. | + +--------+ + + + | OCCULT BLOOD, STOOL, | Routin | 06/03/2019 | | Results for this | | SPECIMEN 1 | e | 2:21 AM | | procedure are in the | | | | PDT | | results section. | + +--------+ + + + | POC GLUCOSE | Routin | 06/02/2019 | | Results for this | | | e | 9:42 PM | | procedure are in the | | | | PDT | | results section. | + +--------+ + + + | CULTURE, BLOOD | STAT | 06/02/2019 | | Results for this | | | | 7:15 PM | | procedure are in the | | | | PDT | | results section. | + +--------+ + + + | CULTURE, BLOOD | STAT | 06/02/2019 | | Results for this | | | | 7:15 PM | | procedure are in the | | | | PDT | | results section. | + +--------+ + + + | PROCALCITONIN, SERUM | Routin | 06/02/2019 | | Results for this | | | e | 7:10 PM | | procedure are in the | | | | PDT | | results section. | + +--------+ + + + | SEDIMENTATION RATE | Routin | 06/02/2019 | | Results for this | | | e | 7:10 PM | | procedure are in the | | | | PDT | | results section. | + +--------+ + + + | C-REACTIVE PROTEIN | Routin | 06/02/2019 | | Results for this | | | e | 7:10 PM | | procedure are in the | | | | PDT | | results section. | + +--------+ + + + | POC GLUCOSE | Routin | 06/02/2019 | | Results for this | | | e | 4:56 PM | | procedure are in the | | | | PDT | | results section. | + +--------+ + + + | POC GLUCOSE | Routin | 06/02/2019 | | Results for this | | | e | 11:56 AM | | procedure are in the | | | | PDT | | results section. | + +--------+ + + + | POC GLUCOSE | Routin | 06/02/2019 | | Results for this | | | e | 6:24 AM | | procedure are in the | | | | PDT | | results section. | + +--------+ + + + | EXTRA GREEN TOP TUBE | Routin | 06/02/2019 | | Results for this | | | e | 5:42 AM | | procedure are in the | | | | PDT | | results section. | + +--------+ + + + | CBC WITH | Routin | 06/02/2019 | | Results for this | | DIFFERENTIAL | e | 5:42 AM | | procedure are in the | | | | PDT | | results section. | + +--------+ + + + | TRANSFUSE 1 UNIT RED | Routin | 06/02/2019 | | | | BLOOD CELLS | e | 2:40 AM | | | | | | PDT | | | + +--------+ + + + | PRODUCT: RBC | Routin | 06/02/2019 | | Results for this | | | e | 12:03 AM | | procedure are in the | | | | PDT | | results section. | + +--------+ + + + | EXTRA BLUE TOP TUBE | Routin | 06/01/2019 | | Results for this | | | e | 10:01 PM | | procedure are in the | | | | PDT | | results section. | + +--------+ + + + | B TYPE NATRIURETIC | Routin | 06/01/2019 | | Results for this | | PEPTIDE | e | 10:00 PM | | procedure are in the | | | | PDT | | results section. | + +--------+ + + + | BASIC METABOLIC | Routin | 06/01/2019 | | Results for this | | PANEL | e | 9:59 PM | | procedure are in the | | | | PDT | | results section. | + +--------+ + + + | TYPE AND SCREEN | Routin | 06/01/2019 | | Results for this | | | e | 9:53 PM | | procedure are in the | | | | PDT | | results section. | + +--------+ + + + | CBC WITH | Routin | 06/01/2019 | | Results for this | | DIFFERENTIAL | e | 9:16 PM | | procedure are in the | | | | PDT | | results section. | + +--------+ + + + | POC GLUCOSE | Routin | 06/01/2019 | | Results for this | | | e | 8:14 PM | | procedure are in the | | | | PDT | | results section. | + +--------+ + + + | POC GLUCOSE | Routin | 06/01/2019 | | Results for this | | | e | 4:58 PM | | procedure are in the | | | | PDT | | results section. | + +--------+ + + + | POC GLUCOSE | Routin | 06/01/2019 | | Results for this | | | e | 12:05 PM | | procedure are in the | | | | PDT | | results section. | + +--------+ + + + | VITAMIN B-12 | Routin | 06/01/2019 | | Results for this | | | e | 10:32 AM | | procedure are in the | | | | PDT | | results section. | + +--------+ + + + | IRON AND TRANSFERRIN | Routin | 06/01/2019 | | Results for this | | | e | 10:32 AM | | procedure are in the | | | | PDT | | results section. | + +--------+ + + + | LACTATE | Add-On | 06/01/2019 | | Results for this | | DEHYDROGENASE | | 10:32 AM | | procedure are in the | | | | PDT | | results section. | + +--------+ + + + | FOLATE | Routin | 06/01/2019 | | Results for this | | | e | 10:32 AM | | procedure are in the | | | | PDT | | results section. | + +--------+ + + + | ECHO COMPLETE | Routin | 06/01/2019 | | Results for this | | | e | 8:21 AM | | procedure are in the | | | | PDT | | results section. | + +--------+ + + + | POC GLUCOSE | Routin | 06/01/2019 | | Results for this | | | e | 6:36 AM | | procedure are in the | | | | PDT | | results section. | + +--------+ + + + | TROPONIN I | Timed | 06/01/2019 | | Results for this | | | | 2:13 AM | | procedure are in the | | | | PDT | | results section. | + +--------+ + + + | RETIC COUNT | Add-On | 06/01/2019 | | Results for this | | | | 2:13 AM | | procedure are in the | | | | PDT | | results section. | + +--------+ + + + | CBC WITH | Routin | 06/01/2019 | | Results for this | | DIFFERENTIAL | e | 2:13 AM | | procedure are in the | | | | PDT | | results section. | + +--------+ + + + | MAGNESIUM | Routin | 06/01/2019 | | Results for this | | | e | 2:13 AM | | procedure are in the | | | | PDT | | results section. | + +--------+ + + + | FERRITIN | Routin | 06/01/2019 | | Results for this | | | e | 2:13 AM | | procedure are in the | | | | PDT | | results section. | + +--------+ + + + | BASIC METABOLIC | Routin | 06/01/2019 | | Results for this | | PANEL | e | 2:13 AM | | procedure are in the | | | | PDT | | results section. | + +--------+ + + + | CT HEAD WO CONTRAST | LAUREN | 05/31/2019 | | Results for this | | | | 10:15 PM | | procedure are in the | | | | PDT | | results section. | + +--------+ + + + | POC GLUCOSE | Routin | 05/31/2019 | | Results for this | | | e | 8:49 PM | | procedure are in the | | | | PDT | | results section. | + +--------+ + + + | TROPONIN I | Timed | 05/31/2019 | | Results for this | | | | 7:59 PM | | procedure are in the | | | | PDT | | results section. | + +--------+ + + + | CBC NO DIFFERENTIAL | Routin | 05/31/2019 | | Results for this | | | e | 7:59 PM | | procedure are in the | | | | PDT | | results section. | + +--------+ + + + | POC BLOOD GASES | Routin | 05/31/2019 | | Results for this | | | e | 2:28 PM | | procedure are in the | | | | PDT | | results section. | + +--------+ + + + | URINALYSIS WITH | STAT | 05/31/2019 | | Results for this | | MICROSCOPIC WITH | | 2:18 PM | | procedure are in the | | CULTURE IF INDICATED | | PDT | | results section. | + +--------+ + + + | TROPONIN I | Routin | 05/31/2019 | | Results for this | | | e | 2:07 PM | | procedure are in the | | | | PDT | | results section. | + +--------+ + + + | PROTIME INR | STAT | 05/31/2019 | | Results for this | | | | 2:07 PM | | procedure are in the | | | | PDT | | results section. | + +--------+ + + + | CBC WITH | STAT | 05/31/2019 | | Results for this | | DIFFERENTIAL | | 2:07 PM | | procedure are in the | | | | PDT | | results section. | + +--------+ + + + | B TYPE NATRIURETIC | STAT | 05/31/2019 | | Results for this | | PEPTIDE | | 2:07 PM | | procedure are in the | | | | PDT | | results section. | + +--------+ + + + | MAGNESIUM | Add-On | 05/31/2019 | | Results for this | | | | 2:07 PM | | procedure are in the | | | | PDT | | results section. | + +--------+ + + + | LIPASE | STAT | 05/31/2019 | | Results for this | | | | 2:07 PM | | procedure are in the | | | | PDT | | results section. | + +--------+ + + + | LACTIC ACID | Routin | 05/31/2019 | | Results for this | | | e | 2:07 PM | | procedure are in the | | | | PDT | | results section. | + +--------+ + + + | CK TOTAL | STAT | 05/31/2019 | | Results for this | | | | 2:07 PM | | procedure are in the | | | | PDT | | results section. | + +--------+ + + + | COMPREHENSIVE | STAT | 05/31/2019 | | Results for this | | METABOLIC PANEL | | 2:07 PM | | procedure are in the | | | | PDT | | results section. | + +--------+ + + + | XR CHEST AP PORTABLE | STAT | 05/31/2019 | | Results for this | | | | 2:01 PM | | procedure are in the | | | | PDT | | results section. | + +--------+ + + + | XR PELVIS 1 OR 2 VW | STAT | 05/31/2019 | | Results for this | | | | 2:00 PM | | procedure are in the | | | | PDT | | results section. | + +--------+ + + + | XR FOOT RIGHT 3 + VW | STAT | 05/31/2019 | | Results for this | | | | 1:50 PM | | procedure are in the | | | | PDT | | results section. | + +--------+ + + + | RT POINT OF CARE | STAT | 05/31/2019 | | | | ADD-ON LABS | | 1:49 PM | | | | | | PDT | | | + +--------+ + + + | XR FOOT LEFT 3 + VW | STAT | 05/31/2019 | | Results for this | | | | 1:49 PM | | procedure are in the | | | | PDT | | results section. | + +--------+ + + + | ECG 12 LEAD | STAT | 05/31/2019 | | Results for this | | | | 1:48 PM | | procedure are in the | | | | PDT | | results section. | + +--------+ + + + | IMAGING REPORT - | | 03/31/2019 | | Results for this | | EXTERNAL SCAN | | 12:00 AM | | procedure are in the | | | | PDT | | results section. | + +--------+ + + + | ECHO-EXTERNAL SCAN | | 02/18/2019 | | Results for this | | | | 12:00 AM | | procedure are in the | | | | PDT | | results section. | + +--------+ + + + | ELECTRIC MOTOR FITTER REPORT - | | 02/16/2019 | | Results for this | | EXTERNAL SCAN | | 12:00 AM | | procedure are in the | | | | PDT | | results section. | + +--------+ + + + documented in this encounter Results POC Glucose (06/12/2019 12:06 PM PDT) + +-------+ + + + | Component | Value | Ref Range | Performed | Pathologist | | | | | At | Signature | + +-------+ + + + | Glucose, | 104 | 70 - 109 mg/dL | [facility] | | | POC | | | [facility] | | [...] [address] | [place] | [phone] | | [facility] | | [address] | | | - LABORATORY | | | | + + + + + B Type Natriuretic Peptide (06/12/2019 6:22 AM PDT) + +---------+ + + + | Component | Value | Ref Range | Performed | Pathologist | | | | | At | Signature | + +---------+ + + + | BNP | 260 (H) | <100 pg/mL | [facility] | [...] [address] | [place] | [phone] | | [facility] | | [address] | | | - LABORATORY | | | | + + + + + Hemoglobin A1C (06/12/2019 6:22 AM PDT) + +-------+ + + + | Component | Value | Ref Range | Performed | Pathologist | | | | | At | Signature | + +-------+ + + + | Hemoglobin | 5.7 | 4.3 - 6.0 % | [facility] | | | A1c | | | [facility] | | | | | | [facility]ICAL | | | | | | CENTER - | | | | | | LABORATORY | | + +-------+ + + + | Estimated | 117 | mg/dL | [facility] | | | Average | | | [facility] | | | Glucose | | | MEDICAL | | | [...] | [address] | [place] | [phone] | | [facility] | | [address] | | | - LABORATORY | | | | + + + + + Protime INR (06/12/2019 6:22 AM PDT) + + + + + + | Component | Value | Ref Range | Performed | Pathologist | | | | | At | Signature | + + + + + + | Prothrombin | 12.4 | 11.3 - 13.9 | [facility] | | | Time | | seconds | [facility] | | | | | | MEDICAL | | | | | | CENTER - | | | | | | LABORATORY | | + + + + + + | INR | 0.9Comment: Usual Oral | 0.9 - 1.1 | [...] [address] | [place] | [phone] | | [facility] | | [address] | | | - LABORATORY | | | | + + + + + Basic Metabolic Panel (06/12/2019 6:22 AM PDT) + + + + + [...] + + + + | Glucose | 78 | 60 - 106 mg/dL | [facility] [...] + + + + | Creatinine | 0.81 | 0.55 - 1.02 | [facility] | [...] | | | FILTRATION | mL/min/1.73m2 | [facility] | | | [facility] | RATE,ESTIMATED | | MEDICAL | | | | mL/min/1.18c3Pzsw than | | CENTER - | | [...] | | | | | mg/dL | [facility] | | | | | | MEDICAL | | | | | | CENTER - | | | | | | LABORATORY | | + + + + + + | BUN/Creatin | 21.0 | | [facility] | | | ine [...] [address] | [place] | [phone] | | [facility] | | [address] | | | - LABORATORY | | | | + + + + + CBC no Differential (06/12/2019 6:22 AM PDT) + + + + + + | Component | Value | Ref Range | Performed | Pathologist | | | | | At | Signature | + + + + + + | WBC | 11.0 | 4.0 - 11.0 K/uL | [facility] | | | | | | . [facility] | | | | | | [...] + + + + | Hematocrit | 32.0 (L) | 34.0 - 47.0 % | [facility] | | | | | | [facility] | | | | | | MEDICAL | | | | | | CENTER - | | | | | | LABORATORY | | + + + + + + | MCV | 99.4 | 83.0 - 101.0 fL | [facility] | | | | | | [facility] | | | | | | MEDICAL | | | | | | CENTER - | | | | | | LABORATORY | | + + + + + + | MCH | 29.5 | 28.0 - 35.0 pg | [facility] | | | | | | [facility] | | | | | | MEDICAL | | | | | | CENTER - | | | | | | LABORATORY | | + + + + + + | MCHC | 29.7 (L) | 32.0 - 36.0 | [facility] | | | | | g/dL | [facility] | | | | | | MEDICAL | | | | | | CENTER - | | | | | | LABORATORY | | + + + + + + | RDW-CV | 14.7 | <15.0 % | [facility] | | | | | | [facility] | | | | | | MEDICAL | | | | | | CENTER - | | | | | | LABORATORY | | + + + + + + | RDW-SD | 53.3 (H) | 35.1 - 46.3 fL | [facility] | | | | | | [facility] | | | | | | MEDICAL | | | | | | CENTER - | | | | | | LABORATORY | | + + + + + + | Platelet | 180 | 140 - 440 K/uL | [facility] [...] + | [facility] | [address] | [place] | [phone] | | [facility] | | [address] | | | - LABORATORY | | | | + + + + + POC Glucose (06/11/2019 9:05 PM PDT) + +---------+ + + + | Component | Value | Ref Range | Performed | Pathologist | | | | | At | Signature | + +---------+ + + + | Glucose, | 172 (H) | 70 - 109 mg/dL | [facility] | | | POC | | | [...] + | [facility] | [address] | [place] | [phone] | | [facility] | | [address] | | | - LABORATORY | | | | + + + + + XR Chest AP Portable (06/11/2019 6:01 PM PDT) + + | Specimen | + + | | + + + + + | Narrative | Performed At | + + + | SINGLE AP CHEST 06/11/2019 6:01 PM CLINICAL HISTORY: [facility] | [facility] | | crackles looking for CHF COMPARISON: Radiography June 06 more | | | remote imaging FINDINGS: The left approach PICC again terminates | | | over the mid SVC. 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 There is | | | calcification and tortuosity of the aorta with similar borderline | | | cardiomegaly and prominence of the central pulmonary vasculature. | | | Right basilar aeration appears improved, with mild residual basilar | | | reticular opacity persisting. Minimal left basilar reticular | | | opacity is unchanged. The lungs are clear elsewhere without visible | | | pneumothorax or pleural effusion. Osteopenia is suggested. | | | IMPRESSION - 1. IMPROVING RIGHT BASILAR AERATION WITH SIMILAR | | | BORDERLINE CARDIOMEGALY AND PROMINENCE OF THE CENTRAL PULMONARY | | | VASCULATURE. Dictated and Signed by: Sivakumar Ramon MD | | | Electronically signed: 06/11/2019 8:39 PM | | + + + + + | Procedure Note | + + | Kobe, Rad Results In - 06/11/2019 8:42 PM PDT SINGLE AP CHEST 06/11/2019 6:01 PM | | | | CLINICAL HISTORY: [facility] crackles looking for CHF | | | | COMPARISON: Radiography June 06 more remote imaging | | | | FINDINGS: The left approach PICC again terminates over the mid SVC. An aortic | | valve graft is again noted. There is calcification and tortuosity of the aorta | | with similar borderline cardiomegaly and prominence of the central pulmonary | | vasculature. Right basilar aeration appears improved, with mild residual | | basilar reticular opacity persisting. Minimal left basilar reticular opacity is | | unchanged. The lungs are clear elsewhere without visible pneumothorax or | | pleural effusion. Osteopenia is suggested. | | | | IMPRESSION - | | | | 1. IMPROVING RIGHT BASILAR AERATION WITH SIMILAR BORDERLINE CARDIOMEGALY AND | | PROMINENCE OF THE CENTRAL PULMONARY VASCULATURE. | | | | Dictated and Signed by: Sivakumar Ramon MD | | Electronically signed: 06/11/2019 8:39 PM | + + + +---------+ + + | Performing | Address | City/State/Zipcode | Phone Number | | Organization | | | | + +---------+ + + | [facility] | | | | + +---------+ + + POC Glucose (06/11/2019 4:58 PM PDT) + +---------+ + + + | Component | Value | Ref Range | Performed | Pathologist | | | | | At | Signature | + +---------+ + + + | Glucose, | 230 (H) | 70 - 109 mg/dL | [facility] | | | POC | | | [...] + | [facility] | [address] | [place] | [phone] | | [facility] | | [address] | | | - LABORATORY | | | | + + + + + POC Glucose (06/11/2019 12:09 PM PDT) + +---------+ + + + | Component | Value | Ref Range | Performed | Pathologist | | | | | At | Signature | + +---------+ + + + | Glucose, | 157 (H) | 70 - 109 mg/dL | [facility] [...] + | [facility] | [address] | [place], [place] | [phone] | | [facility] | | [address] | | | - LABORATORY | | | | + + + + + COLONOSCOPY (06/11/2019 7:45 AM PDT) + + | Specimen | + + | | + + + + -+ | Narrative | Performed At | + + -+ | | [facility] | | GastroenterologyPatient Name: Ángela ClarosesProcedure Date: 06/11/2019 | [facility] | | 7:45 AMMRN: [id number] #: [id number] of : | | | 1930Admit Type: InpatientAge: 88Room: Endo Room 1Gender: | | | FemaleNote Status: FinalizedAttending MD: Edwin Stoddard , | | | MDProcedure: ColonoscopyIndications: Abnormal CT | | | of the GI tractProviders: Edwin Stoddard MD, Lorena Morrell, | | | RN, Ailin Bui, Cad Specialist, Yahir Moy | | | MD Sravan (Anesthesia Staff)Medicines: Propofol per | | | AnesthesiaComplications: No immediate complications. Estimated | | | blood loss: None.Procedure: Pre-Anesthesia Assessment: - | | | Prior to the procedure, a History and Physical was performed, and | | | patient medications, allergies and sensitivities were reviewed. The | | | patient's tolerance of previous anesthesia was reviewed. | | | - Prior to the procedure, a History and Physical was performed, and | | | patient medications and allergies were reviewed. The patient is | | | competent. The risks and benefits of the procedure and the | | | sedation options and risks were discussed with the patient. All | | | questions were answered and informed consent was obtained. | | | Patient identification and proposed procedure were verified by | | | the physician, the nurse, the anesthesiologist and the | | | orthodontic laboratory technician in the endoscopy suite. Mental Status Examination: | | | alert and oriented. Airway Examination: normal oropharyngeal | | | airway and neck mobility and Mallampati Class II (the uvula but | | | not tonsillar pillars visualized). 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 Prior Anticoagulants: The patient | | | has taken no previous anticoagulant or antiplatelet agents. ASA | | | Grade Assessment: III - A patient with severe systemic | | | disease. After reviewing the risks and benefits, the patient | | | was deemed in satisfactory condition to undergo the procedure. | | | The anesthesia plan was to use monitored anesthesia care (MAC). | | | Immediately prior to administration of medications, the patient | | | was re-assessed for adequacy to receive sedatives. The heart rate, | | | respiratory rate, oxygen saturations, blood pressure, adequacy | | | of pulmonary ventilation, and response to care were monitored | | | throughout the procedure. The physical status of the patient | | | was re-assessed after the procedure. - After reviewing | | | the risks and benefits, the patient was deemed in satisfactory | | | condition to undergo the procedure. - Using IV propofol under | | | the supervision of an anesthesiologist was determined to be | | | medically necessary for this procedure based on age 65 or older | | | and severe comorbidity (greater than ASA Grade II). - | | | Immediately prior to administration of medications, the patient was | | | re-assessed for adequacy to receive sedatives. - The heart | | | rate, respiratory rate, oxygen saturations, blood pressure, | | | adequacy of pulmonary ventilation, and response to care were monitored | | | throughout the procedure. - The physical status of the | | | patient was re-assessed after the procedure. After I obtained | | | informed consent, the scope was passed under direct vision. | | | Throughout the procedure, the patient's blood pressure, pulse, | | | and oxygen saturations were monitored continuously. The Colonoscope | | | was introduced through the anus and advanced to the descending | | | colon for evaluation. This was the intended extent. The | | | colonoscopy was technically difficult and complex due to | | | multiple diverticula in the colon, poor bowel prep, restricted | | | mobility of the colon and a tortuous colon. Successful | | | completion of the procedure was aided by using manual pressure | | | and lavage. The patient tolerated the procedure well. The | | | quality of the bowel preparation was poor.Findings: The digital | | | rectal exam findings include decreased sphincter tone. | | | Pertinent negatives include no palpable rectal lesions. Multiple | | | small and large-mouthed diverticula were found in the distal | | | sigmoid colon. There was narrowing of the colon in association with | | | the diverticular opening. There was evidence of diverticular | | | spasm. There was evidence of an impacted diverticulum. There | | | was no evidence of diverticular bleeding. A | | | benign-appearing, intrinsic severe stenosis was found in the sigmoid | | | colon and was traversed. A large amount of solid stool was | | | found in the mid sigmoid colon, precluding visualization. | | | Lavage of the area was performed using copious amounts, | | | resulting in incomplete clearance with continued poor | | | visualization.Impression: - Preparation of the colon was poor. | | | - Decreased sphincter tone found on digital rectal exam. - | | | Severe diverticulosis in the distal sigmoid colon. There was | | | narrowing of the colon in association with the diverticular | | | opening. There was evidence of diverticular spasm. There was | | | evidence of an impacted diverticulum. There was no evidence of | | | diverticular bleeding. 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 - | | | Stool in the mid sigmoid colon. - No specimens | | | collected.Recommendation: - [facility] for | | | ongoing care. - Resume previous diet today. 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 | | | - Stool in the mid sigmoid colon. | | | - No specimens collected. | | |Recommendation: | | | - Return patient to [facility] for [facility]. | | | - Resume previous diet today. | | | - Continue present medications. | | |Edwin Stoddard MD | | |06/11/2019 8:23:08 AM | | |This report has been signed electronically. | | |Number of Addenda: 0 | | |Note Initiated On: 06/11/2019 7:45 AM | | |Scope In: 8:06:04 AM | | |Scope Out: 8:12:08 AM | | | [facility], [address] [facility], [place], [place] | | | [id number] | | + + -+ + +---------+ + + | Performing | Address | City/State/Zipcode | Phone Number | | Organization | | | | + +---------+ + + | [facility] | | | | + +---------+ + + Protime INR (06/11/2019 6:33 AM PDT) + + + + + + | Component | Value | Ref Range | Performed | Pathologist | | | | | At | Signature | + + + + + + | Prothrombin | 13.2 | 11.3 - 13.9 | [facility] | [address] | [place] | [phone] | | [facility] | | [address] | | | - LABORATORY | | | | + + + + + Basic Metabolic Panel (06/11/2019 6:33 AM PDT) + + + + + [...] + + + + | Cl | 105 | 98 - 107 mmol/L | [facility] | | | | | | [facility] | | | | | | [facility] | | | | | [facility] CENTER - | | | | | | LABORATORY | | + + + + + + | CO2 | 35 (H) | 20 - 31 mmol/L | [facility] | | | | | | [facility] | | | | | | [facility] | | | | | | CENTER - | | | | | | LABORATORY | | + + + + + + | Anion Gap | 1 (L) | 3 - 16 mmol/L | [facility] | | | | | | [facility] | | | | | | MEDICAL | | | | | | CENTER - | | | | | | LABORATORY | | + + + + + + | Glucose | 79 | 60 - 106 mg/dL | [facility] [...] + + + + | Creatinine | 0.90 | 0.55 - 1.02 | [facility] | | | | | mg/dL | [facility] | | | | | | MEDICAL | | | | | | CENTER - | | | | | | LABORATORY | | + + + + + + | eGFR if not | 59 (L)Comment: | >=60 | [facility] | | | | GLOMERULAR FILTRATION | mL/min/1.73m2 | [facility] | | | [place] | RATE,ESTIMATED | | MEDICAL | | | | mL/min/1.86h4Unpk than | | CENTER - | | [...] + + + + | Calcium | 8.6 (L) | 8.7 - 10.4 | [facility] | | | | | mg/dL | [facility] | | | | | | MEDICAL | | | | | | CENTER - | | | | | | LABORATORY | | + + + + + + | BUN/Creatin | 21.1 | | [facility] | | | ine [...] [address] | [place] | [phone] | | [facility] | | [address] | | | - LABORATORY | | | | + + + + + CBC no Differential (06/11/2019 6:33 AM PDT) + + + + + [...] + + + + | Hematocrit | 30.3 (L) | 34.0 - 47.0 % | [...] + + + + | MCH | 29.5 | 28.0 - 35.0 pg | [facility] | | | | | | [facility] | | | | | | MEDICAL | | | | | | CENTER - | | | | | | LABORATORY | | + + + + + + | MCHC | 31.0 (L) | 32.0 - 36.0 | [facility] | | | | | g/dL | [facility] | | | | | | MEDICAL | | | | | | CENTER - | | | | | | LABORATORY | | + + + + + + | RDW-CV | 14.4 | <15.0 % | [facility] | | | | | | [facility] | | | | | | MEDICAL | | | | | | CENTER - | | | | | | LABORATORY | | + + + + + + | RDW-SD | 49.5 (H) | 35.1 - 46.3 fL | [facility] | | | | | | [facility] | | | | | | MEDICAL | | | | | | CENTER - | | | | | | LABORATORY | | + + + + + + | Platelet | 157 | 140 - 440 K/uL | [facility] [...] + | [facility] | [address] | [place] | [phone] | | [facility] | | [address] | | | - LABORATORY | | | | + + + + + POC Glucose (06/10/2019 8:15 PM PDT) + +---------+ + + + | Component | Value | Ref Range | Performed | Pathologist | | | | | At | Signature | + +---------+ + + + | Glucose, | 137 (H) | 70 - 109 mg/dL | [facility] | | | POC | | | [...] [address] | [place] | [phone] | | [facility] | | [address] | | | - LABORATORY | | | | + + + + + POC Glucose (06/10/2019 4:46 PM PDT) + +---------+ + + + | Component | Value | Ref Range | Performed | Pathologist | | | | | At | Signature | + +---------+ + + + | Glucose, | 213 (H) | 70 - 109 mg/dL | [facility] | | | POC | | | [facility] | | [...] [address] | [place] | [phone] | | [facility] | | [address] | | | - LABORATORY | | | | + + + + + POC Glucose (06/10/2019 12:17 PM PDT) + +---------+ + + + | Component | Value | Ref Range | Performed | Pathologist | | | | | At | Signature | + +---------+ + + + | Glucose, | 181 (H) | 70 - 109 mg/dL | [facility] | | | POC | | | [facility] | | [...] + | [facility] | [address] | [place] | [phone] | | [facility] | | [address] | | | - LABORATORY | | | | + + + + + Protime INR (06/10/2019 10:39 AM PDT) + + + + + + | Component | Value | Ref Range | Performed | Pathologist | | | | | At | Signature | + + + + + + | Prothrombin | 13.6 | 11.3 - 13.9 | [facility] | | | Time | | seconds | [facility] | | | | [...] [address] | [place] | [phone] | | [facility] | | [address] | | | - LABORATORY | | | | + + + + + POC Glucose (06/10/2019 6:40 AM PDT) + +-------+ + + + | Component | Value | Ref Range | Performed | Pathologist | | | | | At | Signature | + +-------+ + + + | Glucose, | 85 | 70 - 109 mg/dL | [facility] | | | POC | | | [facility] | | [...] + | [facility] | [address] | [place] | [phone] | | [facility] | | [address] | | | - LABORATORY | | | | + + + + + Basic Metabolic Panel (06/10/2019 5:16 AM PDT) + + + + + [...] + + + + | CO2 | 34 (H) | 20 - 31 mmol/L | [...] + + + + | Creatinine | 0.82 | 0.55 - 1.02 | [facility] | [...] mL/min/1.73m2 | [facility] | | | [place] | RATE,ESTIMATED | | MEDICAL | | | | mL/min/1.68y6Zura than | | CENTER - | | [...] + + + + | Calcium | 8.6 (L) | 8.7 - 10.4 | [facility] | | | | | mg/dL | [facility] | | | | | | MEDICAL | | | | | | CENTER - | | | | | | LABORATORY | | + + + + + + | BUN/Creatin | 25.6 | | [facility] | | | ine [...] [address] | [place] | [phone] | | [facility] | | [address] | | | - LABORATORY | | | | + + + + + CBC no Differential (06/10/2019 5:16 AM PDT) + + + + + + | Component | Value | Ref Range | Performed | Pathologist | | | | | At | Signature | + + + + + + | WBC | 8.1 | 4.0 - 11.0 K/uL | [facility] | | | | | | [facility] | | | | | | MEDICAL | | | | | | CENTER - | | | | | | LABORATORY | | + + + + + + | RBC | 2.94 (L) | 3.70 - 5.20 | [facility] | | | | | M/uL | [facility] | | | | | | MEDICAL | | | | | | CENTER - | | | | | | LABORATORY | | + + + + + + | Hemoglobin | 8.7 (L) | 11.5 - 16.0 | [facility] [...] + + + + | MCV | 95.2 | 83.0 - 101.0 fL | [facility] | | | | | | [facility] | | | | | | MEDICAL | | | | | | CENTER - | | | | | | LABORATORY | | + + + + + + | MCH | 29.6 | 28.0 - 35.0 pg | [facility] [...] + + + + | RDW-CV | 14.3 | <15.0 % | [facility] | | | | | | [facility] | | | | | | MEDICAL | | | | | | CENTER - | | | | | | LABORATORY | | + + + + + + | RDW-SD | 49.5 (H) | 35.1 - 46.3 fL | [facility] | | | | | | [facility] | | | | | | MEDICAL | | | | | | CENTER - | | | | | | LABORATORY | | + + + + + + | Platelet | 144 | 140 - 440 K/uL | [facility] [...] [address] | [place] | [phone] | | [facility] | | [address] | | | - LABORATORY | | | | + + + + + POC Glucose (06/09/2019 9:44 PM PDT) + +---------+ + + + | Component | Value | Ref Range | Performed | Pathologist | | | | | At | Signature | + +---------+ + + + | Glucose, | 118 (H) | 70 - 109 mg/dL | [facility] | | | POC | | | [facility] | | [...] [address] | [place] | [phone] | | [facility] | | [address] | | | - LABORATORY | | | | + + + + + POC Glucose (06/09/2019 5:58 PM PDT) + +---------+ + + + | Component | Value | Ref Range | Performed | Pathologist | | | | | At | Signature | + +---------+ + + + | Glucose, | 161 (H) | 70 - 109 mg/dL | [facility] | | | POC | | | [...] [address] | [place] | [phone] | | [facility] | | [address] | | | - LABORATORY | | | | + + + + + POC Glucose (06/09/2019 12:15 PM PDT) + +---------+ + + + | Component | Value | Ref Range | Performed | Pathologist | | | | | At | Signature | + +---------+ + + + | Glucose, | 139 (H) | 70 - 109 mg/dL | [facility] | | | POC | | | [...] [address] | [place] | [phone] | | [facility] | | [address] | | | - LABORATORY | | | | + + + + + POC Glucose (06/09/2019 7:01 AM PDT) + +-------+ + + + | Component | Value | Ref Range | Performed | Pathologist | | | | | At | Signature | + +-------+ + + + | Glucose, | 81 | 70 - 109 mg/dL | [facility] | | | POC | | | [...] + | [facility] | [address] | [place] | [phone] | | [facility] | | [address] | | | - LABORATORY | | | | + + + + + Basic Metabolic Panel (06/09/2019 4:24 AM PDT) + + + + + + | Component | Value | Ref Range | Performed | Pathologist | | | | | At | Signature | + + + + + + | Na | 139 | 136 - 145 | [facility] | [...] + + + | Anion Gap | 0 (L) | 3 - 16 mmol/L | [...] + + + + | BUN | 20 | 9 - 23 mg/dL | [facility] | | | | | | [facility] | | | | | | MEDICAL | | | | | | CENTER - | | | | | | LABORATORY | | + + + + + + | Creatinine | 0.80 | 0.55 - 1.02 | [facility] | [...] mL/min/1.73m2 | [facility] | | | [place] | RATE,ESTIMATED | | MEDICAL | | | | mL/min/1.73a3Tifd than | | CENTER - | | [...] + + + + | Calcium | 8.1 (L) | 8.7 - 10.4 | [facility] | | | | | mg/dL | [facility] | | | | | | MEDICAL | | | | | | CENTER - | | | | | | LABORATORY | | + + + + + + | BUN/Creatin | 25.0 | | [facility] | | | ine [...] [address] | [place] | [phone] | | [facility] | | [address] | | | - LABORATORY | | | | + + + + + CBC no Differential (06/09/2019 4:24 AM PDT) + + + + + + | Component | Value | Ref Range | Performed | Pathologist | | | | | At | Signature | + + + + + + | WBC | 6.8 | 4.0 - 11.0 K/uL | [facility] | | | | | | [facility] | | | | | | MEDICAL | | | | | | CENTER - | | | | | | LABORATORY | | + + + + + + | RBC | 2.87 (L) | 3.70 - 5.20 | [facility] [...] + + + + | MCV | 95.1 | 83.0 - 101.0 fL | [facility] | | | | | | [facility] | | | | | | MEDICAL | | | | | | CENTER - | | | | | | LABORATORY | | + + + + + + | MCH | 29.3 | 28.0 - 35.0 pg | [facility] [...] + + + + | RDW-CV | 14.2 | <15.0 % | [facility] | | | | | | [facility] | | | | | | MEDICAL | | | | | | CENTER - | | | | | | LABORATORY | | + + + + + + | RDW-SD | 50.1 (H) | 35.1 - 46.3 fL | [facility] | | | | | | [facility] | | | | | | MEDICAL | | | | | | CENTER - | | | | | | LABORATORY | | + + + + + + | Platelet | 120 (L) | 140 - 440 K/uL | [...] [address] | [place] | [phone] | | [facility] | | [address] | | | - LABORATORY | | | | + + + + + POC Glucose (06/08/2019 10:09 PM PDT) + +---------+ + + + | Component | Value | Ref Range | Performed | Pathologist | | | | | At | Signature | + +---------+ + + + | Glucose, | 112 (H) | 70 - 109 mg/dL | [facility] | | | POC | | | [facility] | | [...] + | [facility] | [address] | [place] | [phone] | | [facility] | | [address] | | | - LABORATORY | | | | + + + + + POC Glucose (06/08/2019 5:15 PM PDT) + +---------+ + + + | Component | Value | Ref Range | Performed | Pathologist | | | | | At | Signature | + +---------+ + + + | Glucose, | 125 (H) | 70 - 109 mg/dL | [facility] [...] [address] | [place] | [phone] | | [facility] | | [address] | | | - LABORATORY | | | | + + + + + POC Glucose (06/08/2019 11:27 AM PDT) + +---------+ + + + | Component | Value | Ref Range | Performed | Pathologist | | | | | At | Signature | + +---------+ + + + | Glucose, | 135 (H) | 70 - 109 mg/dL | [facility] | | | POC | | | [...] [address] | [place] | [phone] | | [facility] | | [address] | | | - LABORATORY | | | | + + + + + POC Glucose (06/08/2019 6:44 AM PDT) + +---------+ + + + | Component | Value | Ref Range | Performed | Pathologist | | | | | At | Signature | + +---------+ + + + | Glucose, | 110 (H) | 70 - 109 mg/dL | [facility] | | | POC | | | [facility] | | [...] + | [facility] | [address] | [place] | [phone] | | [facility] | | [address] | | | - LABORATORY | | | | + + + + + CBC with Differential (06/08/2019 4:47 AM PDT) + + + + + + | Component | Value | Ref Range | Performed | Pathologist | | | | | At | Signature | + + + + + + | WBC | 7.2 | 4.0 - 11.0 K/uL | [facility] | | | | | | [facility] | | | | | | [facility] | | | | | | CENTER - | | | | | | LABORATORY | | + + + + + + | RBC | 2.88 (L) | 3.70 - 5.20 | [facility] [...] + + + + | Hematocrit | 27.2 (L) | 34.0 - 47.0 % | [facility] | | | | | | [facility] | | | | | | MEDICAL | | | | | | CENTER - | | | | | | LABORATORY | | + + + + + + | MCV | 94.4 | 83.0 - 101.0 fL | [facility] [...] + + + + | RDW-CV | 14.0 | <15.0 % | [facility] | | | | | | [facility] | | | | | | MEDICAL | | | | | | CENTER - | | | | | | LABORATORY | | + + + + + + | RDW-SD | 48.3 (H) | 35.1 - 46.3 fL | [facility] | | | | | | [facility] | | | | | | MEDICAL | | | | | | CENTER - | | | | | | LABORATORY | | + + + + + + | Platelet | 121 (L) | 140 - 440 K/uL | [...] + + + + | % | 85.5 (H) | 45.0 - 82.0 % | [facility] | | | Neutrophils | | | [facility] | | | | | | MEDICAL | | | | | | CENTER - | | | | | | LABORATORY | | + + + + + + | % | 8.1 (L) | 20.0 - 45.0 % | [facility] | | | Lymphocytes | | | [facility] | | | | | | MEDICAL | | | | | | CENTER - | | | | | | LABORATORY | | + + + + + + | % Monocytes | 4.1 | 4.0 - 12.0 % | [facility] [...] + + + | % Immature | 2.1 (H)Comment: | 0.0 - 0.4 % | [...] + + + + | Absolute | 6.11 | 1.80 - 8.50 | [facility] | | | Neutrophils | | K/uL | [facility] | | | | | | MEDICAL | | | | | | CENTER - | | | | | | LABORATORY | | + + + + + + | Absolute | 0.58 (L) | 0.60 - 3.20 | [facility] | | | Lymphocytes | | K/uL | [facility] | | | | | | MEDICAL | | | | | | CENTER - | | | | | | LABORATORY | | + + + + + + | Absolute | 0.29 | 0.00 - 1.00 | [facility] | [...] + + + + | Absolute | 0.15 (H) | 0.00 - 0.03 | [facility] [...] [address] | [place] | [phone] | | [facility] | | [address] | | | - LABORATORY | | | | + + + + + Protime INR (06/08/2019 4:47 AM PDT) + + + + + + | Component | Value | Ref Range | Performed | Pathologist | | | | | At | Signature | + + + + + + | Prothrombin | 14.4 (H) | 11.3 - 13.9 | [facility] [...] [address] | [place] | [phone] | | [facility] | | [address] | | | - LABORATORY | | | | + + + + + POC Glucose (06/07/2019 10:52 PM PDT) + +-------+ + + + | Component | Value | Ref Range | Performed | Pathologist | | | | | At | Signature | + +-------+ + + + | Glucose, | 104 | 70 - 109 mg/dL | [facility] | | | POC | | | [facility] | | | [...] | [address] | [place], [place] | [phone] | | [facility] | | [address] | | | - LABORATORY | | | | + + + + + POC Glucose (06/07/2019 4:49 PM PDT) + +---------+ + + + | Component | Value | Ref Range | Performed | Pathologist | | | | | At | Signature | + +---------+ + + + | Glucose, | 126 (H) | 70 - 109 mg/dL | [facility] | | | POC | | | [facility] | | [...] [address] | [place] | [phone] | | [facility] | | [address] | | | - LABORATORY | | | | + + + + + POC Glucose (06/07/2019 12:11 PM PDT) + +---------+ + + + | Component | Value | Ref Range | Performed | Pathologist | | | | | At | Signature | + +---------+ + + + | Glucose, | 121 (H) | 70 - 109 mg/dL | [facility] | | | POC | | | [facility] | | [...] [address] | [place] | [phone] | | [facility] | | [address] | | | - LABORATORY | | | | + + + + + POC Glucose (06/07/2019 10:22 AM PDT) + +---------+ + + + | Component | Value | Ref Range | Performed | Pathologist | | | | | At | Signature | + +---------+ + + + | Glucose, | 125 (H) | 70 - 109 mg/dL | [facility] [...] + | [facility] | [address] | [place] | [phone] | | [facility] | | [address] | | | - LABORATORY | | | | + + + + + Helicobactor pylori Biopsy (06/07/2019 8:24 AM PDT) + + + + + + | Component | Value | Ref Range | Performed | Pathologist | | | | | At | Signature | + + + + + + | Helicobacte | Negative | Negative | [facility] | | | r pylori Ag | | | [facility] | | | | | | MEDICAL | | | | | | CENTER - | | | | | | LABORATORY | | + + + + + + + + | Specimen | + + | Tissue - Specimen | | from stomach | | (specimen) | + + + + + + + | Performing | Address | City/State/Zipcode | Phone Number | | Organization | | | | + + + + + | [facility] | [address] | [place] | [phone] | | [facility] | | [address] | | | - LABORATORY | | | | + + + + + POC Glucose (06/07/2019 8:19 AM PDT) + +-------+ + + + | Component | Value | Ref Range | Performed | Pathologist | | | | | At | Signature | + +-------+ + + + | Glucose, | 90 | 70 - 109 mg/dL | [facility] | | | POC | | | [facility] | | [...] [address] | [place] | [phone] | | [facility] | | [address] | | | - LABORATORY | | | | + + + + + EGD (06/07/2019 7:41 AM PDT) + + | Specimen | + + | | + + + + -+ | Narrative | Performed At | + + -+ | | [facility] | | GastroenterologyPatient Name: Ángela Padron Date: 06/07/2019 | [facility] | | 7:[facility]: [id number] #: [id number] of : | | | 1930Admit Type: InpatientAge: 88Room: Endo Room 1Gender: | | | FemaleNote Status: FinalizedAttending MD: Edwin Stoddard , | | | MDProcedure: Upper GI endoscopyIndications: | | | Esophageal dysphagia, Occult blood in stoolProviders: | | | Edwin Stoddard MD, Ivett Alexandra RN, Marita | | | Stanley Phillip, Cad Specialist, Hermilo Alcocer (Anesthesia | | | Staff)Medicines: Propofol per AnesthesiaComplications: | | | No immediate complications. Estimated blood loss: | | | Minimal.Procedure: Pre-Anesthesia Assessment: - Prior to | | | the procedure, a History and Physical was performed, and | | | patient medications, allergies and sensitivities were reviewed. The | | | patient's tolerance of previous anesthesia was reviewed. - | | | Prior to the procedure, a History and Physical was performed, and | | | patient medications and allergies were reviewed. The patient is | | | competent. The risks and benefits of the procedure and the | | | sedation options and risks were discussed with the patient. All | | | questions were answered and informed consent was obtained. | | | Patient identification and proposed procedure were verified by | | | the physician, the nurse, the anesthesiologist and the | | | orthodontic laboratory technician in the endoscopy suite. Mental Status Examination: | | | alert and oriented. Airway Examination: normal oropharyngeal | | | airway and neck mobility and Mallampati Class II (the uvula but | | | not tonsillar pillars visualized). Respiratory Examination: | | | clear to auscultation. CV Examination: normal. Prophylactic | | | Antibiotics: The patient requires prophylactic antibiotics due | | | to a prior history of acute GI bleeding and for the planned | | | performance of dilation. Prior Anticoagulants: The patient has | | | taken no previous anticoagulant or antiplatelet agents. ASA | | | Grade Assessment: III - A patient with severe systemic disease. | | | After reviewing the risks and benefits, the patient was deemed | | | in satisfactory condition to undergo the procedure. The | | | anesthesia plan was to use monitored anesthesia care (MAC). | | | Immediately prior to administration of medications, the patient | | | was re-assessed for adequacy to receive sedatives. The heart | | | rate, respiratory rate, oxygen saturations, blood pressure, | | | adequacy of pulmonary ventilation, and response to care were | | | monitored throughout the procedure. The physical status of the | | | patient was re-assessed after the procedure. - After reviewing | | | the risks and benefits, the patient was deemed in satisfactory | | | condition to undergo the procedure. - Using IV propofol under | | | the supervision of an anesthesiologist was determined to be | | | medically necessary for this procedure based on age 65 or older | | | and severe comorbidity (greater than ASA Grade II). - | | | Immediately prior to administration of medications, the patient was | | | re-assessed for adequacy to receive sedatives. - The heart | | | rate, respiratory rate, oxygen saturations, blood pressure, | | | adequacy of pulmonary ventilation, and response to care were monitored | | | throughout the procedure. - The physical status of the | | | patient was re-assessed after the procedure. After obtaining | | | informed consent, the endoscope was passed under direct vision. | | | Throughout the procedure, the patient's blood pressure, pulse, | | | and oxygen saturations were monitored continuously. The Endoscope was | | | introduced through the mouth, and advanced to the third part | | | of duodenum. The upper GI endoscopy was accomplished without | | | difficulty. The patient tolerated the procedure well.Findings: | | | The upper third of the esophagus, middle third of the esophagus | | | and lower third of the esophagus were normal. The Z-line | | | was regular and was found 40 cm from the incisors. A mild | | | Schatzki ring was found at the gastroesophageal junction. A TTS | | | dilator was passed through the scope. Dilation with a 15-16.5-18 mm | | | pyloric balloon dilator was performed. The dilation site was | | | examined and showed moderate improvement in luminal narrowing. | | | Estimated blood loss was minimal. Suspect gastroparesis | | | due to absence of peristalsis. Diffuse mild inflammation | | | characterized by erythema and friability was found in the | | | gastric antrum. Biopsies were taken with a cold forceps for | | | Helicobacter pylori testing using CLOtest. Verification of patient | | | identification for the specimen was done. Estimated blood loss was | | | minimal. The duodenal bulb, first portion of the | | | duodenum, second portion of the duodenum, area of the papilla | | | and third portion of the duodenum were normal. The | | | retroflexed view confirmed previous findings, A single | | | submucosal papule (nodule) with no bleeding and no stigmata of | | | recent bleeding was found in the gastric antrum.Impression: - | | | Normal upper third of esophagus, middle third of esophagus and lower | | | third of esophagus. - Z-line regular, 40 cm from the | | | incisors. - Mild Schatzki ring. Dilated. - Gastroparesis, | | | secondary to diabetes mellitus type I. - Gastritis. Biopsied. | | | - Normal duodenal bulb, first portion of the duodenum, second | | | portion of the duodenum, area of the papilla and third portion | | | of the duodenum. - The retroflexed view confirmed previous | | | findings,Recommendation: - [facility] | | | ongoing care. - Resume previous diet today. - Follow an | | | antireflux regimen indefinitely. - Continue present medications. | | | - Await pathology results.Edwin Stoddard MD06/07/2019 8:42:30 | | | AMThis report has been signed electronically.Number of Addenda: 0Note | | | Initiated On: 06/07/2019 7:41 AMScope In: 8:22:26 AMScope Out: 8:29:07 | | | AM [facility], [address] [facility] | | | [place] [address] | | | the duodenum, area of the papilla and third portion of the duodenum. | | | - The retroflexed view confirmed previous findings, | | |Recommendation: | | | - Return patient to [facility] for [facility] care. | | | - Resume previous diet today. | | | - Follow an antireflux regimen indefinitely. | | | - Continue present medications. | | | - Await pathology results. | | |Edwin Stoddard MD | | |06/07/2019 8:42:30 AM | | |This report has been signed electronically. | | |Number of Addenda: 0 | | |Note Initiated On: 06/07/2019 7:41 AM | | |Scope In: 8:22:26 AM | | |Scope Out: 8:29:07 AM | | | [facility], [address] [facility], [place], [place] | | | [id number] | | + + -+ + +---------+ + + | Performing | Address | City/State/Zipcode | Phone Number | | Organization | | | | + +---------+ + + | [employer] | | | | + +---------+ + + Magnesium (06/07/2019 4:27 AM PDT) + +-------+ + + + [...] [address] | [place] | [phone] | | [facility] | | [address] | | | - LABORATORY | | | | + + + + + Comprehensive Metabolic Panel (06/07/2019 4:27 AM PDT) + + + + + [...] + + + + | K | 2.7 (L) | 3.4 - 5.1 | [facility] | | | | | mmol/L | [facility] | | | | | | [facility] | | | | | | CENTER - | | | | | | LABORATORY | | + + + + + + | Cl | 108 (H) | 98 - 107 mmol/L | [facility] | | | | | [facility] | | | | | | [facility] | | | | | | CENTER - | | | | | | LABORATORY | | + + + + + + | CO2 | 33 (H) | 20 - 31 mmol/L | [facility] | | | | | [facility] | | | | | | [facility] | | | | | | CENTER - | | | | | | LABORATORY | | + + + + + + | Anion Gap | 2 (L) | 3 - 16 mmol/L | [facility] | | | | | | [facility] | | [...] 22 | 9 - 23 mg/dL | [facility] | | | | | | [facility] | | | | | | [facility] | | | | | | CENTER - | | | | | | LABORATORY | | + + + + + + | Creatinine | 0.81 | 0.55 - 1.02 | [facility] | | | | | mg/dL [...] mL/min/1.73m2 | [facility] | | | [place] | RATE,ESTIMATED | | MEDICAL | | | | mL/min/1.69r9Xtld than | | CENTER - | | [...] + + + + | Albumin | 2.9 (L) | 3.2 - 4.8 g/dL | [...] + + + + | Total | 4.8 (L) | 5.7 - 8.2 g/dL | [...] + + + + | Alkaline | 80 | 46 - 116 U/L | [facility] | | | Phosphatase | | | [facility] | | | | | | MEDICAL | | | | | | CENTER - | | | | | | LABORATORY | | + + + + + + | Globulin | 1.9 (L) | 2.1 - 3.8 g/dL | [...] + + + + | BUN/Creatin | 27.2 | | [facility] | | | ine [...] [address] | [place] | [phone] | | [facility] | | [address] | | | - LABORATORY | | | | + + + + + Procalcitonin (06/07/2019 4:27 AM PDT) + + + + + + | Component | Value | Ref Range | Performed | Pathologist | | | | | At | Signature | + + + + + + | Procalciton | 8.62 ()Comment: | <=0.50 ng/mL | [facility] | | | in | Consistent with Previous | | [facility] | | | | Results | | MEDICAL | | | | [...] + | [facility] | [address] | [place] | [phone] | | [facility] | | [address] | | | - LABORATORY | | | | + + + + + CBC with Differential (06/07/2019 4:27 AM PDT) + + + + + + | Component | Value | Ref Range | Performed | Pathologist | | | | | At | Signature | + + + + + + | WBC | 7.3 | 4.0 - 11.0 K/uL | [facility] | | | | | | [facility] | | | | | | [facility] | | | | | | CENTER - | | | | | | LABORATORY | | + + + + + + | RBC | 3.00 (L) | 3.70 - 5.20 | [facility] | | | | | M/uL | [facility] | | | | | | MEDICAL | | | | | | CENTER - | | | | | | LABORATORY | | + + + + + + | Hemoglobin | 8.7 (L) | 11.5 - 16.0 | [facility] | | | | | g/dL | [facility] | | | | | | MEDICAL | | | | | | CENTER - | | | | | | LABORATORY | | + + + + + + | Hematocrit | 28.3 (L) | 34.0 - 47.0 % | [facility] | | | | | | [facility] | | | | | | MEDICAL | | | | | | CENTER - | | | | | | LABORATORY | | + + + + + + | MCV | 94.3 | 83.0 - 101.0 fL | [facility] [...] + + + + | RDW-CV | 14.1 | <15.0 % | [facility] | | | | | | [facility] | | | | | | MEDICAL | | | | | | CENTER - | | | | | | LABORATORY | | + + + + + + | RDW-SD | 48.3 (H) | 35.1 - 46.3 fL | [facility] | | | | | | [facility] | | | | | | MEDICAL | | | | | | CENTER - | | | | | | LABORATORY | | + + + + + + | Platelet | 124 (L) | 140 - 440 K/uL | [...] + + + + | % | 80.0 | 45.0 - 82.0 % | [facility] | | | Neutrophils | | | [facility] | | | | | | MEDICAL | | | | | | CENTER - | | | | | | LABORATORY | | + + + + + + | % | 11.2 (L) | 20.0 - 45.0 % | [facility] | | | Lymphocytes | | | [facility] | | | | | | MEDICAL | | | | | | CENTER - | | | | | | LABORATORY | | + + + + + + | % Monocytes | 8.2 | 4.0 - 12.0 % | [facility] [...] + + + + | Absolute | 5.84 | 1.80 - 8.50 | [facility] | | | Neutrophils | | K/uL | [facility] | | | | | | MEDICAL | | | | | | CENTER - | | | | | | LABORATORY | | + + + + + + | Absolute | 0.82 | 0.60 - 3.20 | [facility] | | | Lymphocytes | | K/uL | [facility] | | | | | | MEDICAL | | | | | | CENTER - | | | | | | LABORATORY | | + + + + + + | Absolute | 0.60 | 0.00 - 1.00 | [facility] | [...] [address] | [place] | [phone] | | [facility] | | [address] | | | - LABORATORY | | | | + + + + + POC Glucose (06/06/2019 8:54 PM PDT) + +---------+ + + + | Component | Value | Ref Range | Performed | Pathologist | | | | | At | Signature | + +---------+ + + + | Glucose, | 178 (H) | 70 - 109 mg/dL | [facility] | | | POC | | | [facility] | | [...] + | [facility] | [address] | [place] | [phone] | | [facility] | | [address] | | | - LABORATORY | | | | + + + + + Extra Lavender Top Tube (06/06/2019 7:16 PM PDT) + +-------+ + + + | Component | Value | Ref Range | Performed | Pathologist | | | | | At | Signature | + +-------+ + + + | Extra | Done | | [facility] | | | Lavender | | | [facility] | | | Top Tube | | [...] [address] | [place] | [phone] | | [facility] | | [address] | | | - LABORATORY | | | | + + + + + Procalcitonin (06/06/2019 7:14 PM PDT) + + + + + + | Component | Value | Ref Range | Performed | Pathologist | | | | | At | Signature | + + + + + + | Procalciton | 11.37 ()Comment: | <=0.50 ng/mL | [facility] | | | in | [facility] | [facility] | | | results. | | [...] | [address] | [place] | [phone] | | [facility] | | [address] | | | - LABORATORY | | | | + + + + + POC Glucose (06/06/2019 5:25 PM PDT) + +---------+ + + + | Component | Value | Ref Range | Performed | Pathologist | | | | | At | Signature | + +---------+ + + + | Glucose, | 148 (H) | 70 - 109 mg/dL | [facility] | | | POC | | | [facility] | | [...] + | [facility] | [address] | [place] | [phone] | | [facility] | | [address] | | | - LABORATORY | | | | + + + + + POC Glucose (06/06/2019 11:42 AM PDT) + +---------+ + + + | Component | Value | Ref Range | Performed | Pathologist | | | | | At | Signature | + +---------+ + + + | Glucose, | 233 (H) | 70 - 109 mg/dL | [facility] | | | POC | | | [...] [address] | [place] | [phone] | | [facility] | | [address] | | | - LABORATORY | | | | + + + + + Culture, Blood (06/06/2019 8:49 AM PDT) + + + + + + | Component | Value | Ref Range | Performed | Pathologist | | | | | At | Signature | + + + + + + | Culture | No growth after 5 days | | [facility] | | | | incubation. | | [facility] | | | [...] [address] | [place] | [phone] | | [facility] | | [address] | | | - LABORATORY | | | | + + + + + Extra Green Top Tube (06/06/2019 8:24 AM PDT) + +-------+ + + + | Component | Value | Ref Range | Performed | Pathologist | | | | | At | Signature | + +-------+ + + + | Extra Green | Done | | [facility] | | | Top Tube | | | [facility] | | [...] + | [facility] | [address] | [place] | [phone] | | [facility] | | [address] | | | - LABORATORY | | | | + + + + + Procalcitonin (06/06/2019 8:07 AM PDT) + + + + + + | Component | Value | Ref Range | Performed | Pathologist | | | | | At | Signature | + + + + + + | Procalciton | 17.89 ()Comment: | <=0.50 ng/mL | [facility] | | | in | Consistent with previous | | [facility] | | | | results. | | [...] [address] | [place] | [phone] | | [facility] | | [address] | | | - LABORATORY | | | | + + + + + Culture, Blood (06/06/2019 8:07 AM PDT) + + + + + + | Component | Value | Ref Range | Performed | Pathologist | | | | | At | Signature | + + + + + + | Culture | No growth after 5 days | | [facility] | | | | incubation. | | [facility] | | | [...] + | [facility] | [address] | [place] | [phone] | | [facility] | | [address] | | | - LABORATORY | | | | + + + + + POC Glucose (06/06/2019 6:46 AM PDT) + +-------+ + + + | Component | Value | Ref Range | Performed | Pathologist | | | | | At | Signature | + +-------+ + + + | Glucose, | 105 | 70 - 109 mg/dL | [facility] | | | POC | | | [...] + | [facility] | [address] | [place], [place] | [phone] | | [facility] | | [address] | | | - LABORATORY | | | | + + + + + XR Chest AP Portable (06/06/2019 5:39 AM PDT) + + | Specimen | + + | | + + + + + | Narrative | Performed At | + + + | EXAM: XR CHEST AP PORTABLE dated 06/06/2019 5:39 AM HISTORY: | [facility] | | possible RLL pneumonia Comparison: 06/04/2019. TECHNIQUE: A | | | single portable view of the chest. FINDINGS: The lungs are | | | symmetrically aerated. Hazy airspace process is present in the | | | right lateral lower lung of securing the lateral margin of the | | | hemidiaphragm. The left lung remains clear. No large effusions. | | | No pneumothorax. Stable cardiac and mediastinal contours. There | | | is a left PICC line. The catheter tip is in the distal | | | brachiocephalic vein.. IMPRESSION - Hazy opacities now seen | | | in the right lower lung could represent a pneumonia. Dictated and | | | Signed by: Edwin Jarrell MD Electronically signed: 06/06/2019 9:07 | | | AM | | + + + + + | Procedure Note | + + | Kobe, Rad Results In - 06/06/2019 9:10 AM PDT EXAM: XR CHEST AP PORTABLE dated | | 06/06/2019 5:39 AMHISTORY: possible RLL pneumoniaComparison: 06/04/2019.TECHNIQUE: A single | | portable view of the chest.FINDINGS:The lungs are symmetrically aerated. Hazy airspace | | process is present in theright lateral lower lung of securing the lateral margin of the | | hemidiaphragm. The left lung remains clear. No large effusions. No pneumothorax. | | Stablecardiac and mediastinal contours. There is a left PICC line. The catheter tipis | | in the distal brachiocephalic vein.. IMPRESSION -Hazy opacities now seen in the right | | lower lung could represent a pneumonia.Dictated and Signed by: Edwin Jarrell MD | | Electronically signed: 06/06/2019 9:07 AM | | | |The lungs are symmetrically aerated. Hazy airspace process is present in the | |right lateral lower lung of securing the lateral margin of the hemidiaphragm. | |The left lung remains clear. No large effusions. No pneumothorax. Stable | |cardiac and mediastinal contours. There is a left PICC line. The catheter tip | |is in the distal brachiocephalic vein.. | | | |IMPRESSION - | | | |Hazy opacities now seen in the right lower lung could represent a pneumonia. | | | |Dictated and Signed by: Edwin Jarrell MD | | Electronically signed: 06/06/2019 9:07 AM | + + + +---------+ + + | Performing | Address | City/State/Zipcode | Phone Number | | Organization | | | | + +---------+ + + | [facility] | | | | + +---------+ + + Sedimentation Rate (06/06/2019 4:13 AM PDT) + +-------+ + + + | Component | Value | Ref Range | Performed | Pathologist | | | | | At | Signature | + +-------+ + + + | Erythrocyte | 4 | <30 mm/hr | [facility] | | | | | | [facility] | | | Sediment[facility] | | | MEDICAL | | | on Rate | | | CENTER - | | [...] [address] | [place] | [phone] | | [facility] | | [address] | | | - LABORATORY | | | | + + + + + Procalcitonin (06/06/2019 4:13 AM PDT) + + + + + + | Component | Value | Ref Range | Performed | Pathologist | | | | | At | Signature | + + + + + + | Procalciton | 18.79 (HH)Comment: | <=0.50 ng/mL | [facility] | | | in | Critical Result called | | [facility] | | | | to and read back by | | MEDICAL | | | | Shaista Colón RN on | | CENTER - | | | | 06/06/2019 at 5:33 by | | LABORATORY | | | | Mansoor George. This is | | | | | | an appended report. | | | | | | These results have | | | | | | been appended to a | | | | | | previously final | | | | | | verified report. | | | | + + + + + + | Comment | Comment: < 0.50 | | [facility] | | | | ng/mL:Procalcitonin | | [facility] | | | | levels below 0.50 [...] + | [facility] | [address] | [place] | [phone] | | [facility] | | [address] | | | - LABORATORY | | | | + + + + + Comprehensive Metabolic Panel (06/06/2019 4:13 AM PDT) + + + + + [...] + + + + | Cl | 110 (H) | 98 - 107 mmol/L | [...] + + + + | Glucose | 113 (H) | 60 - 106 mg/dL | [facility] | | | | | | [facility] | | | | | | MEDICAL | | | | | | CENTER - | | | | | | LABORATORY | | + + + + + + | BUN | 27 (H) | 9 - 23 mg/dL | [facility] | | | | | | [facility] | | | | | | MEDICAL | | | | | | CENTER - | | | | | | LABORATORY | | + + + + + + | Creatinine | 0.90 | 0.55 - 1.02 | [facility] | | | | | mg/dL | [facility] | | | | | | MEDICAL | | | | | | CENTER - | | | | | | LABORATORY | | + + + + + + | eGFR if not | 59 (L)Comment: | >=60 | [facility] | | | | GLOMERULAR FILTRATION | mL/min/1.73m2 | [facility] | | | [place] | RATE,ESTIMATED | | MEDICAL | | | | mL/min/1.31k0Nomj than | | CENTER - | | [...] 8.5 (L) | 8.7 - 10.4 | [facility] | | | | | mg/dL | [facility] | | | | | | MEDICAL | | | | | | CENTER - | | | | | | LABORATORY | | + + + + + + | Albumin | 2.9 (L) | 3.2 - 4.8 g/dL | [facility] | | | | | | [facility] [...] + + + + | Total | 4.9 (L) | 5.7 - 8.2 g/dL | [...] + + + + | Alkaline | 84 | 46 - 116 U/L | [facility] | | | Phosphatase | | | [facility] | | | | | | MEDICAL | | | | | | CENTER - | | | | | | LABORATORY | | + + + + + + | Globulin | 2.0 (L) | 2.1 - 3.8 g/dL | [...] + + + + | BUN/Creatin | 30.0 | | [facility] | | | ine [...] [address] | [place] | [phone] | | [facility] | | [address] | | | - LABORATORY | | | | + + + + + CBC with Differential (06/06/2019 4:13 AM PDT) + + + + + + | Component | Value | Ref Range | Performed | Pathologist | | | | | At | Signature | + + + + + + | WBC | 9.0 | 4.0 - 11.0 K/uL | [facility] | | | | | | [facility] | | | | | | MEDICAL | | | | | | CENTER - | | | | | | LABORATORY | | + + + + + + | RBC | 2.97 (L) | 3.70 - 5.20 | [facility] | | | | | M/uL | [facility] | | | | | | MEDICAL | | | | | | CENTER - | | | | | | LABORATORY | | + + + + + + | Hemoglobin | 8.7 (L) | 11.5 - 16.0 | [facility] | | | | | g/dL | [facility] | | | | | | MEDICAL | | | | | | CENTER - | | | | | | LABORATORY | | + + + + + + | Hematocrit | 28.5 (L) | 34.0 - 47.0 % | [facility] | | | | | | [facility] | | | | | | MEDICAL | | | | | | CENTER - | | | | | | LABORATORY | | + + + + + + | MCV | 96.0 | 83.0 - 101.0 fL | [facility] | | | | | | [facility] | | | | | | MEDICAL | | | | | | CENTER - | | | | | | LABORATORY | | + + + + + + | MCH | 29.3 | 28.0 - 35.0 pg | [facility] | | | | | | [facility] | | [...] + + + + | RDW-CV | 14.7 | <15.0 % | [facility] | | | | | | [facility] | | | | | | MEDICAL | | | | | | CENTER - | | | | | | LABORATORY | | + + + + + + | RDW-SD | 51.8 (H) | 35.1 - 46.3 fL | [facility] | | | | | | [facility] | | | | | | MEDICAL | | | | | | CENTER - | | | | | | LABORATORY | | + + + + + + | Platelet | 132 (L) | 140 - 440 K/uL | [...] + + + + | % | 86.9 (H) | 45.0 - 82.0 % | [...] + + + | % Monocytes | 5.5 | 4.0 - 12.0 % | [facility] [...] + + + + | Absolute | 7.81 | 1.80 - 8.50 | [facility] | | | Neutrophils | | K/uL | [facility] | | | | | | MEDICAL | | | | | | CENTER - | | | | | | LABORATORY | | + + + + + + | Absolute | 0.63 | 0.60 - 3.20 | [facility] | | | Lymphocytes | | K/uL | [facility] | | | | | | MEDICAL | | | | | | CENTER - | | | | | | LABORATORY | | + + + + + + | Absolute | 0.49 | 0.00 - 1.00 | [facility] | [...] + | [facility] | [address] | [place] | [phone] | | [facility] | | [address] | | | - LABORATORY | | | | + + + + + POC Glucose (06/05/2019 9:11 PM PDT) + +---------+ + + + | Component | Value | Ref Range | Performed | Pathologist | | | | | At | Signature | + +---------+ + + + | Glucose, | 158 (H) | 70 - 109 mg/dL | [facility] | | | POC | | | [...] [address] | [place] | [phone] | | [facility] | | [address] | | | - LABORATORY | | | | + + + + + POC Glucose (06/05/2019 5:01 PM PDT) + +---------+ + + + | Component | Value | Ref Range | Performed | Pathologist | | | | | At | Signature | + +---------+ + + + | Glucose, | 153 (H) | 70 - 109 mg/dL | [facility] | | | POC | | | [facility] | | [...] [address] | [place] | [phone] | | [facility] | | [address] | | | - LABORATORY | | | | + + + + + POC Glucose (06/05/2019 11:43 AM PDT) + +---------+ + + + | Component | Value | Ref Range | Performed | Pathologist | | | | | At | Signature | + +---------+ + + + | Glucose, | 212 (H) | 70 - 109 mg/dL | [facility] | | | POC | | | [facility] | | [...] + | [facility] | [address] | [place] | [phone] | | [facility] | | [address] | | | - LABORATORY | | | | + + + + + POC Glucose (06/05/2019 7:07 AM PDT) + +-------+ + + + | Component | Value | Ref Range | Performed | Pathologist | | | | | At | Signature | + +-------+ + + + | Glucose, | 107 | 70 - 109 mg/dL | [facility] | | | POC | | | [...] [address] | [place] | [phone] | | [facility] | | [address] | | | - LABORATORY | | | | + + + + + Extra Lavender Top Tube (06/05/2019 6:04 AM PDT) + +-------+ + + + | Component | Value | Ref Range | Performed | Pathologist | | | | | At | Signature | + +-------+ + + + | Extra | Done | | [facility] | | | Lavender | | | [facility] | | | Top Tube | | [...] [address] | [place] | [phone] | | [facility] | | [address] | | | - LABORATORY | | | | + + + + + Extra Blue Top Tube (06/05/2019 6:04 AM PDT) + +-------+ + + + | Component | Value | Ref Range | Performed | Pathologist | | | | | At | Signature | + +-------+ + + + | Extra Blue | Done | | [facility] | | | Top Tube | | | [facility] | | [...] + | [facility] | [address] | [place] | [phone] | | [facility] | | [address] | | | - LABORATORY | | | | + + + + + Basic Metabolic Panel (06/05/2019 6:04 AM PDT) + + + + + [...] + + + + | Cl | 110 (H) | 98 - 107 mmol/L | [...] + + + + | Glucose | 105 | 60 - 106 mg/dL | [facility] | | | | | | [facility] | | | | | | MEDICAL | | | | | | CENTER - | | | | | | LABORATORY | | + + + + + + | BUN | 24 (H) | 9 - 23 mg/dL | [facility] | | | | | | [facility] | | | | | | MEDICAL | | | | | | CENTER - | | | | | | LABORATORY | | + + + + + + | Creatinine | 0.79 | 0.55 - 1.02 | [facility] | | | | | mg/dL | [facility] | | | | | | MEDICAL | | | | | | CENTER - | | | | | | LABORATORY | | + + + + + + | eGFR if not | >60Comment: GLOMERULAR | >=60 | [facility] | | | | FILTRATION | mL/min/1.73m2 | [facility] | | | [place] | RATE,ESTIMATED | | MEDICAL | | | | mL/min/1.76k4Kcsb than | | CENTER - | | [...] + + + + | Calcium | 8.6 (L) | 8.7 - 10.4 | [facility] | | | | | mg/dL | [facility] | | | | | | MEDICAL | | | | | | CENTER - | | | | | | LABORATORY | | + + + + + + | BUN/Creatin | 30.4 | | [facility] | | | ine Ratio | | [...] [address] | [place] | [phone] | | [facility] | | [address] | | | - LABORATORY | | | | + + + + + Basic Metabolic Panel (06/05/2019 4:24 AM PDT) + + + + + [...] + + + + | K | 6.5 ()Comment: | 3.4 - 5.1 | [facility] | | | | Critical Result called | mmol/L | [facility] | | | | to and read back by | | MEDICAL | | | | shaista colón RN on | | CENTER - | | | | 06/05/2019 at 5:20 by | | LABORATORY | | | | Mansoor Lees. | | | | + + + + + + | Cl | 113 (H) | 98 - 107 mmol/L | [facility] | | | | | | [facility] | | | | | | MEDICAL | | | | | | CENTER - | | | | | | LABORATORY | | + + + + + + | CO2 | 25 | 20 - 31 mmol/L | [facility] [...] + + + + | Glucose | 89 | 60 - 106 mg/dL | [facility] [...] | | | FILTRATION | mL/min/1.73m2 | [facility] | | | [place] | RATE,ESTIMATED | | MEDICAL | | | | mL/min/1.18r2Rbuo than | | CENTER - | | [...] + + + + | Calcium | 8.1 (L) | 8.7 - 10.4 | [facility] | | | | | mg/dL | [facility] | | | | | [...] [address] | [place] | [phone] | | [facility] | | [address] | | | - LABORATORY | | | | + + + + + POC Glucose (06/04/2019 9:04 PM PDT) + +-------+ + + + | Component | Value | Ref Range | Performed | Pathologist | | | | | At | Signature | + +-------+ + + + | Glucose, | 78 | 70 - 109 mg/dL | [facility] | | | POC | | | [...] ST[facility] | [address] | [place], [place] | [phone] | | [facility] | | [address] | | | - LABORATORY | | | | + + + + + XR Chest AP Portable (06/04/2019 8:40 PM PDT) + + | Specimen | + + | | + + + + + | Narrative | Performed At | + + + | SINGLE AP CHEST 06/04/2019 8:29 PM CLINICAL HISTORY: picc tip | [facility] | | localization status post manipulation COMPARISON: CT and | | | radiography FINDINGS: The left approach PICC remains in position | | | however its tip has straightened in the interim and now projects over | | | the mid SVC. Calcification and tortuosity of the aorta persist. 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 There is similar | | | borderline cardiomegaly and prominence of the central pulmonary | | | vasculature. Mild basilar reticular opacity is similar to previous. | | | The lungs are clear elsewhere without visible pneumothorax or | | | pleural effusion. Degenerative changes of the shoulders are again | | | noted. Osteopenia is suggested. IMPRESSION - 1. IMPROVED | | | POSITIONING OF THE LEFT APPROACH PICC, WHICH NOW TERMINATES OVER THE | | | MID SVC. Findings were discussed with the infusion services nurse | | | caring for the patient at the time of interpretation on June 04, | | | 2018. Dictated and Signed by: Sivakumar Ramon MD Electronically | | | signed: 06/04/2019 8:46 PM | | + + + + + | Procedure Note | + + | Kobe, Rad Results In - 06/04/2019 8:50 PM PDT SINGLE AP CHEST 06/04/2019 8:29 PM | | | | CLINICAL HISTORY: picc tip localization status post manipulation | | | | COMPARISON: CT and radiography | | | | FINDINGS: The left approach PICC remains in position however its tip has | | straightened in the interim and now projects over the mid SVC. Calcification | | and tortuosity of the aorta persist. 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 | | There is similar borderline cardiomegaly and prominence of the central pulmonary | | vasculature. Mild basilar reticular opacity is similar to previous. The lungs | | are clear elsewhere without visible pneumothorax or pleural effusion. | | Degenerative changes of the shoulders are again noted. Osteopenia is suggested. | | | | IMPRESSION - | | | | 1. IMPROVED POSITIONING OF THE LEFT APPROACH PICC, WHICH NOW TERMINATES OVER | | THE MID SVC. | | | | Findings were discussed with the infusion services nurse caring for the patient | | at the time of interpretation on June 04, 2019. | | | | Dictated and Signed by: Sivakumar Ramon MD | | Electronically signed: 06/04/2019 8:46 PM | + + + +---------+ + + | Performing | Address | City/State/Zipcode | Phone Number | | Organization | | | | + +---------+ + + | [facility] | | | | + +---------+ + + POC Glucose (06/04/2019 5:08 PM PDT) + +-------+ + + + | Component | Value | Ref Range | Performed | Pathologist | | | | | At | Signature | + +-------+ + + + | Glucose, | 102 | 70 - 109 mg/dL | [facility] | | | POC | | | [facility] | | [...] [address] | [place] | [phone] | | [facility] | | [id number] | | | - LABORATORY | | | | + + + + + XR Chest AP Portable (06/04/2019 3:37 PM PDT) + + | Specimen | + + | | + + + + + | Narrative | Performed At | + + + | SINGLE AP CHEST 06/04/2019 3:37 PM CLINICAL HISTORY: picc | [facility] | | placement COMPARISON: Radiography from earlier in the day and | | | May 31 FINDINGS: A left approach PICC is now present. The tip | | | of the catheter is curved and positioned at the level of the azygos | | | vein. Calcification and tortuosity of the aorta persist. An | | | aortic valve graft is again visible. There is similar borderline | | | cardiomegaly and prominence of the central pulmonary vasculature. | | | Mild basilar reticular opacity is similar to previous. The lungs | | | are clear elsewhere without visible pneumothorax or pleural effusion. | | | There are degenerative changes of the shoulders. Multilevel | | | spondylosis is present. IMPRESSION - 1. LEFT APPROACH PICC | | | APPEARING TO EXTEND INTO THE AZYGOS VEIN. 2. SIMILAR BORDERLINE | | | CARDIOMEGALY AND PROMINENCE OF THE CENTRAL PULMONARY VASCULATURE WITH | | | NON-SPECIFIC BASILAR RETICULAR OPACITY. Results of the study were | | | communicated to Dr. Carvajal on June 04, 2019 at 1900 hours. | | | Dictated and Signed by: Sivakumar Ramon MD Electronically signed: | | | 06/04/2019 7:11 PM | | + + + + + | Procedure Note | + + | [place], Rad Results In - 06/04/2019 7:14 PM PDT SINGLE AP CHEST 06/04/2019 3:37 PM | | | | CLINICAL HISTORY: picc placement | | | | COMPARISON: Radiography from earlier in the day and May 31 | | | | FINDINGS: A left approach PICC is now present. The tip of the catheter is | | curved and positioned at the level of the azygos vein. Calcification and | | tortuosity of the aorta persist. 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 There | | is similar borderline cardiomegaly and prominence of the central pulmonary | | vasculature. Mild basilar reticular opacity is similar to previous. The lungs | | are clear elsewhere without visible pneumothorax or pleural effusion. There are | | degenerative changes of the shoulders. Multilevel spondylosis is present. | | | | IMPRESSION - | | | | 1. LEFT APPROACH PICC APPEARING TO EXTEND INTO THE AZYGOS VEIN. | | | | 2. SIMILAR BORDERLINE CARDIOMEGALY AND PROMINENCE OF THE CENTRAL PULMONARY | | VASCULATURE WITH NON-SPECIFIC BASILAR RETICULAR OPACITY. | | | | Results of the study were communicated to Dr. Carvajal on June 04, 2019 at 1900 | | hours. | | | | Dictated and Signed by: Sivakumar Ramon MD | | Electronically signed: 06/04/2019 7:11 PM | + + + +---------+ + + | Performing | Address | City/State/Zipcode | Phone Number | | Organization | | | | + +---------+ + + | [facility] | | | | + +---------+ + + CT Head wo Contrast (06/04/2019 2:09 PM PDT) + + | Specimen | + + | | + + + + + | Narrative | Performed At | + + + | EXAM: CT HEAD WO CONTRAST dated 06/04/2019 2:03 PM HISTORY: | [facility] | | altered mental status Comparison: 05/31/[address] | | | TECHNIQUE: Noncontrast CT is performed from the top of calvarium | | | through the skull base. Coronal and sagittal reformats are | | | performed. DOSE: DLP 613.27 mGy-cm FINDINGS: BRAIN: | | | Ventricles, [...] and subcortical | | | white matter. Stable focal hypodensities in the left basal ganglia | | | and both caudate heads, consistent with remote infarcts. | | | SCALP/ CALVARIUM: The scalp and skull are intact and are unremarkable. | | | SINUSES / ORBITS/ MASTOIDS: The visible mastoid air cells and | | | paranasal sinuses are clear. The globes and retroconal contents are | | | intact and are unremarkable. IMPRESSION - No CT evidence for | | | an acute intracranial process. No significant interval change. | | | Dictated and Signed by: Edwin Jarrell MD Electronically | | | signed: 06/04/2019 2:38 PM | | + + + + + | Procedure Note | + + | Kobe, Rad Results In - 06/04/2019 2:41 PM PDT EXAM: CT HEAD WO CONTRAST dated | | 06/04/2019 2:03 PMHISTORY: altered mental statusComparison: 05/31/[address]TECHNIQUE: | | Noncontrast CT is performed from the top of calvarium through theskull base. Coronal | | and sagittal reformats are performed.DOSE: DLP 613.27 mGy-cmFINDINGS: BRAIN: | | Ventricles, sulci and cisterns are unremarkable for age. No areas ofincreased | | attenuation to suggest intracranial hemorrhage. There is no mass,mass effect, or | | midline shift. There are no abnormal extra-axial fluid or aircollections. There is | | preservation of the benitez-white differentiation at thistime. There is moderate patchy to | | confluent decreased density in theperiventricular and subcortical white matter. 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 SCALP/ CALVARIUM: The scalp and skull are intact and are | | unremarkable.SINUSES / ORBITS/ MASTOIDS: The visible mastoid air cells and paranasal | | sinusesare clear. The globes and retroconal contents are intact and are | | unremarkable.IMPRESSION -No CT evidence for an acute intracranial process.No significant | | interval change.Dictated and Signed by: Edwin Jarrell MD Electronically signed: | | 06/04/2019 2:38 PM | |collections. There is preservation of the benitez-white differentiation at this | |time. There is moderate patchy to confluent decreased density in the | |periventricular and subcortical white matter. Stable focal hypodensities in the | |left basal ganglia and both caudate heads, consistent with remote infarcts. | | | |SCALP/ CALVARIUM: The scalp and skull are intact and are unremarkable. | | | |SINUSES / ORBITS/ MASTOIDS: The visible mastoid air cells and paranasal sinuses | |are clear. The globes and retroconal contents are intact and are unremarkable. | | | |IMPRESSION - | | | |No CT evidence for an acute intracranial process. | | | |No significant interval change. | | | | | | | |Dictated and Signed by: Edwin Jarrell MD | | Electronically signed: 06/04/2019 2:38 PM | + + + +---------+ + + | Performing | Address | City/State/Zipcode | Phone Number | | Organization | | | | + +---------+ + + | [facility] | | | | + +---------+ + + CT Abdomen Pelvis w Contrast (06/04/2019 2:09 PM PDT) + + | Specimen | + + | | + + + + + | Narrative | Performed At | + + + | EXAM: CT ABDOMEN PELVIS W CONTRAST dated 06/04/2019 2:03 PM | [facility] | | HISTORY:fever Comparison: None. TECHNIQUE: Imaging is | | | performed from the lung bases through the pubic symphysis following | | | the uneventful intravenous administration of 85 mL Omnipaque 350. | | | Automated exposure control, Adjustment of mA and/or kV according to | | | patient size, and use of iterative reconstruction technique are | | | applied to this exam. DOSE: DLP 302.81 mGy-cm FINDINGS: | | | LUNG BASES: There is a small layering right pleural effusion. There | | | is right lower lobe bronchial wall thickening. There are | | | tree-in-bud opacities in the right lower lobe and some developing | | | consolidation. LIVER: The liver is unremarkable in attenuation and | | | enhancement. There are no focal liver lesions. There is | | | intrahepatic biliary ductal dilatation. GALLBLADDER: The | | | gallbladder is surgically absent. There is a dilatation of the | | | intrahepatic ducts, common hepatic duct, and common bile duct. The | | | common hepatic duct measures about 2.2 cm there is the common bile | | | duct measures about 13 mm. It tapers to the level of the ampulla. | | | There is dilatation of the pancreatic duct. It measures up to 6.5 | | | mm. No visible filling defects. SPLEEN: The spleen is | | | unremarkable. There is no splenomegaly. PANCREAS: There is | | | diffuse dilatation of the pancreatic duct measuring between 3.5 and | | | 6.5 mm. There is a 1 cm cystlike structure just left of midline in | | | the pancreas body. There is an ovoid 11 mm cystlike structure in | | | the pancreatic head. There is a smaller one measuring about 5 mm in | | | the pancreatic head. No peripancreatic inflammatory changes. | | | ADRENALS: No adrenal enlargement. No adrenal masses. KIDNEYS: | | | There is a small cyst off the anterior left kidney. There is a 12 mm | | | cyst off the posterior right kidney. There is a probable cyst off | | | the medial right kidney in the posterior lateral right kidney both | | | unable to be characterized as a simple cyst. No hydronephrosis. | | | No nephrolithiasis. BOWEL: There is a prominent, irregular, | | | heterogeneous area of masslike enlargement in the upper rectum. The | | | lumen is somewhat obscured. There is diffuse diverticular disease | | | throughout this region. There are some pericolonic inflammatory | | | changes around this region. There is currently no evidence for | | | obstruction. 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 It measures up to 2.4 cm. It is heavily | | | diseased. There is no abdominal or pelvic lymphadenopathy. | | | BLADDER: There is a catheter within the bladder. There is not a | | | visible balloon. The bladder contains air and urine. UTERUS AND | | | ADNEXA:The uterus is surgically absent. There are no adnexal | | | masses. BONES: There are no acute osseous abnormalities. There | | | are no suspicious lytic or blastic bone lesions. There is diffuse | | | osteopenia. There is multilevel spondylosis and spondylolisthesis. | | | This grade 2 at L5. There are posterior surgical decompressive | | | changes. OTHER: There is no free fluid. There is no free air. | | | IMPRESSION - Findings in the right lower lobe are concerning | | | for a pneumonia. There is a focal area of masslike thickening and | | | adjacent inflammatory changes in the upper rectum, through an area of | | | diverticular disease. This may represent diverticulitis. There | | | is a relatively strong concern for an underlying malignancy. | | | Currently, no evidence for gastrointestinal tract obstruction. | | | Dilatation of the intrahepatic and extra hepatic biliary ducts in | | | addition to the pancreatic duct. This may be related to an | | | ampullary stricture. No visible mass to explain the findings. | | | Cystlike structures in the pancreatic body are potentially small | | | pancreatic cysts or small intraductal ampullary mucinous neoplasms. | | | The largest measures 11 mm. Catheter in the bladder. No | | | visible balloon. The bladder is currently incompletely evacuated. | | | Dictated and Signed by: Edwin Jarrell MD Electronically | | | signed: 06/04/2019 2:52 PM | | + + + + + | Procedure Note | + + | Kobe, Rad Results In - 06/04/2019 2:55 PM PDT EXAM: CT ABDOMEN PELVIS W CONTRAST | | dated 06/04/2019 2:03 PMHISTORY:feverComparison: None.TECHNIQUE: Imaging is performed | | from the lung bases through the pubic symphysisfollowing the uneventful intravenous | | administration of 85 mL Omnipaque 350. Automated exposure control, Adjustment of mA | | and/or kV according to patientsize, and use of iterative reconstruction technique are | | applied to this exam.DOSE: DLP 302.81 mGy-cmFINDINGS: LUNG BASES: There is a small | | layering right pleural effusion. There is rightlower lobe bronchial wall thickening. | | There are tree-in-bud opacities in theright lower lobe and some developing | | consolidation.LIVER: The liver is unremarkable in attenuation and enhancement. There | | are nofocal liver lesions. There is intrahepatic biliary ductal dilatation.GALLBLADDER: | | The gallbladder is surgically absent. There is a dilatation of theintrahepatic ducts, | | common hepatic duct, and common bile duct. The commonhepatic duct measures about 2.2 cm | | there is the common bile duct measures about13 mm. It tapers to the level of the | | ampulla. There is dilatation of thepancreatic duct. It measures up to 6.5 mm. No | | visible filling defects.SPLEEN: The spleen is unremarkable. There is no | | splenomegaly.PANCREAS: There is diffuse dilatation of the pancreatic duct measuring | | between3.5 and 6.5 mm. There is a 1 cm cystlike structure just left of midline in | | thepancreas body. There is an ovoid 11 mm cystlike structure in the pancreatichead. | | There is a smaller one measuring about 5 mm in the pancreatic head. Noperipancreatic | | inflammatory changes.ADRENALS: No adrenal enlargement. No adrenal masses.KIDNEYS: There | | is a small cyst off the anterior left kidney. There is a 12 mmcyst off the posterior | | right kidney. There is a probable cyst off the medialright kidney in the posterior | | lateral right kidney both unable to becharacterized as a simple cyst. No | | hydronephrosis. No nephrolithiasis.BOWEL: There is a prominent, irregular, | | heterogeneous area of masslikeenlargement in the upper rectum. The lumen is somewhat | | obscured. There isdiffuse diverticular disease throughout this region. There are some | | pericolonicinflammatory changes around this region. There is currently no evidence | | forobstruction.VASCULATURE AND LYMPH NODES: Multifocal ectasia of the abdominal aorta. | | Itmeasures up to 2.4 cm. It is heavily diseased. There is no abdominal or | | pelviclymphadenopathy.BLADDER: There is a catheter within the bladder. There is not a | | visibleballoon. The bladder contains air and urine.UTERUS AND ADNEXA:The uterus is | | surgically absent. There are no adnexal masses.BONES: There are no acute osseous | | abnormalities. There are no suspicious lyticor blastic bone lesions. There is diffuse | | osteopenia. There is multilevelspondylosis and spondylolisthesis. This grade 2 at L5. | | There are posteriorsurgical decompressive changes.OTHER: There is no free fluid. There | | is no free air.IMPRESSION - Findings in the right lower lobe are concerning for a | | pneumonia.There is a focal area of masslike thickening and adjacent inflammatory | | changesin the upper rectum, through an area of diverticular disease. This mayrepresent | | diverticulitis. There is a relatively strong concern for anunderlying malignancy. | | Currently, no evidence for gastrointestinal tractobstruction.Dilatation of the | | intrahepatic and extra hepatic biliary ducts in addition tothe pancreatic duct. This | | may be related to an ampullary stricture. No visiblemass to explain the | | findings.Cystlike structures in the pancreatic body are potentially small | | pancreaticcysts or small intraductal ampullary mucinous neoplasms. The largest | | uofbtuvl12 mm.Catheter in the bladder. No visible balloon. The bladder is | | currentlyincompletely evacuated.Dictated and Signed by: Edwin Jarrell MD | | Electronically signed: 06/04/2019 2:52 PM | |obstruction. | | | |VASCULATURE AND LYMPH NODES: Multifocal ectasia of the abdominal aorta. It | |measures up to 2.4 cm. It is heavily diseased. There is no abdominal or pelvic | |lymphadenopathy. | | | |BLADDER: There is a catheter within the bladder. There is not a visible | |balloon. The bladder contains air and urine. | | | |UTERUS AND ADNEXA:The uterus is surgically absent. There are no adnexal masses. | | | |BONES: There are no acute osseous abnormalities. There are no suspicious lytic | |or blastic bone lesions. There is diffuse osteopenia. There is multilevel | |spondylosis and spondylolisthesis. This grade 2 at L5. There are posterior | |surgical decompressive changes. | | | |OTHER: There is no free fluid. There is no free air. | | | |IMPRESSION - | | | |Findings in the right lower lobe are concerning for a pneumonia. | | | |There is a focal area of masslike thickening and adjacent inflammatory changes | |in the upper rectum, through an area of diverticular disease. This may | |represent diverticulitis. There is a relatively strong concern for an | |underlying malignancy. Currently, no evidence for gastrointestinal tract | |obstruction. | | | |Dilatation of the intrahepatic and extra hepatic biliary ducts in addition to | |the pancreatic duct. 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 No visible | |mass to explain the findings. | | | |Cystlike structures in the pancreatic body are potentially small pancreatic | |cysts or small intraductal ampullary mucinous neoplasms. The largest measures | |11 mm. | | | |Catheter in the bladder. No visible balloon. The bladder is currently | |incompletely evacuated. | | | |Dictated and Signed by: Edwin Jarrell MD | | Electronically signed: 06/04/2019 2:52 PM | + + + +---------+ + + | Performing | Address | City/State/Zipcode | Phone Number | | Organization | | | | + +---------+ + + | [facility] | | | | + +---------+ + + Culture, MRSA (06/04/2019 1:29 PM PDT) + + + + + + | Component | Value | Ref Range | Performed | Pathologist | | | | | At | Signature | + + + + + + | Culture | 3+ Staphylococcus | | [facility] | | | | aureus,Methicillin | | [facility] | | | | resistant (MRSA)Comment: | [...] + | [facility] | [address] | [place] | [phone] | | [facility] | | [address] | | | - LABORATORY | | | | + + + + + Urinalysis with Microscopic with Culture if Indicated (06/04/2019 12:12 PM PDT) + + + + + + | Component | Value | Ref Range | Performed | Pathologist | | | | | At | Signature | + + + + + + | Color, | Yellow | Light Yellow, | [facility] | | | Urine | | Yellow, Straw | [facility] | | | | [...] + + + + | Specific | 1.011 | 1.001 - 1.030 | [facility] | | | [place], | | | [facility] | | [...] | | specimen obtained by | | single | | catheterization of | | bladder (specimen) | + + + + + + + | Performing | Address | City/State/Zipcode | Phone Number | | Organization | | | | + + + + + | [facility] | [address] | [place] | [phone] | | [facility] | | [address] | | | - LABORATORY | | | | + + + + + Differential, Manual (06/04/2019 11:54 AM PDT) + + + + + + | Component | Value | Ref Range | Performed | Pathologist | | | | | At | Signature | + + + + + + | % Segmented | 75.0 (H) | 50.0 - 70.0 % | [facility] | | | | | | [facility] | | | Neutrophils | | | MEDICAL | | | | | | CENTER - | | | | | | LABORATORY | | + + + + + + | % | 2.0 (L) | 20.0 - 40.0 % | [facility] | | | Lymphocytes | | | [facility] | | | | | | MEDICAL | | | | | | CENTER - | | | | | | LABORATORY | | + + + + + + | % Monocytes | 0.0 (L) | 1.0 - 6.0 % | [facility] | | | | | | [facility] | | | | | | MEDICAL | | | | | | CENTER - | | | | | | LABORATORY | | + + + + + + | % Bands | 23.0 (H) | 0.0 - 5.0 % | [facility] | | | | | | [facility] | | | | | | MEDICAL | | | | | | CENTER - | | | | | | LABORATORY | | + + + + + + | Absolute | 9.75 (H) | 1.80 - 7.70 | [facility] | | | Segmented | | K/uL | [facility] | | | Neutrophils | | | MEDICAL | | | | | | CENTER - | | | | | | LABORATORY | | + + + + + + | Absolute | 0.26 (L) | 1.00 - 3.40 | [facility] | | | Lymphocytes | | K/uL | [facility] | | | | | | MEDICAL | | | | | | CENTER - | | | | | | LABORATORY | | + + + + + + | Absolute | 0.00 | 0.00 - 0.80 | [facility] | | | Monocytes | | K/uL | [facility] | | | | | | MEDICAL | | | | | | CENTER - | | | | | | LABORATORY | | + + + + + + | Absolute | 2.99 (H) | 0.00 - 1.50 | [facility] | | | Bands | | K/uL | [facility] | | | | | | MEDICAL | | | | | | CENTER - | | | | | | LABORATORY | | + + + + + + | Total | 100 | | [facility] | | | Counted | | | [facility] | | | | | | MEDICAL | | | | | | CENTER - | | | | | | LABORATORY | | + + + + + + | RBC | Normal | | [facility] | | | Morphology | | | [facility] | | | | | | MEDICAL | | | | | | CENTER - | | | | | | LABORATORY | | + + + + + + | Platelet | Adequate | Adequate | [facility] | | | Estimate | | | [facility] | | | | | | MEDICAL | | | | | | CENTER - | | | | | | LABORATORY | | + + + + + + | Leukocyte | Present (A) | Not Present | [facility] | | | Toxic | | | [facility] | | | Vacuoles | | | MEDICAL | | | [...] [address] | [place] | [phone] | | [facility] | | [address] | | | - LABORATORY | | | | + + + + + Basic Metabolic Panel (06/04/2019 11:54 AM PDT) + + + + + [...] + + + + | Cl | 107 | 98 - 107 mmol/L | [facility] [...] + + + | Anion Gap | 8 | 3 - 16 mmol/L | [facility] | | | | | | [facility] | | | | | | MEDICAL | | | | | | CENTER - | | | | | | LABORATORY | | + + + + + + | Glucose | 89 | 60 - 106 mg/dL | [facility] | | | | | | [facility] | | | | | | MEDICAL | | | | | | CENTER - | | | | | | LABORATORY | | + + + + + + | BUN | 26 (H) | 9 - 23 mg/dL | [facility] | | | | | | [facility] | | | | | | MEDICAL | | | | | | CENTER - | | | | | | LABORATORY | | + + + + + + | Creatinine | 0.91 | 0.55 - 1.02 | [facility] | | | | | mg/dL | [facility] | | | | | | MEDICAL | | | | | | CENTER - | | | | | | LABORATORY | | + + + + + + | eGFR if not | 58 (L)Comment: | >=60 | [facility] | | | | GLOMERULAR FILTRATION | mL/min/1.73m2 | [facility] | | | [place] | RATE,ESTIMATED | | MEDICAL | | | | mL/min/1.83z9Bwcj than | | CENTER - | | [...] + + + + | Calcium | 8.6 (L) | 8.7 - 10.4 | [facility] | | | | | mg/dL | [facility] | | | | | | MEDICAL | | | | | | CENTER - | | | | | | LABORATORY | | + + + + + + | BUN/Creatin | 28.6 | | [facility] | | | ine [...] [address] | [place] | [phone] | | [facility] | | [address] | | | - LABORATORY | | | | + + + + + Hepatic Function Panel (06/04/2019 11:54 AM PDT) + + + + + + | Component | Value | Ref Range | Performed | Pathologist | | | | | At | Signature | + + + + + + | Bilirubin | 1.4 (H) | 0.3 - 1.2 mg/dL | [facility] [...] + + + + | AST | 17 | 0 - 34 U/L | [facility] [...] + + + + | Alkaline | 114 | 46 - 116 U/L | [facility] [...] + + + + | Bilirubin, | 0.80 (H) | 0.00 - 0.30 | [facility] | | | Direct | | mg/dl | [facility] | | | | [...] [address] | [place] | [phone] | | [facility] | | [address] | | | - LABORATORY | | | | + + + + + CBC with Differential (06/04/2019 11:54 AM PDT) + + + + + + | Component | Value | Ref Range | Performed | Pathologist | | | | | At | Signature | + + + + + + | WBC | 13.0 (H) | 4.0 - 11.0 K/uL | [facility] | | | | | | [facility] | | | | | | MEDICAL | | | | | | CENTER - | | | | | | LABORATORY | | + + + + + + | RBC | 3.62 (L) | 3.70 - 5.20 | [facility] | | | | | M/uL | [facility] | | | | | | MEDICAL | | | | | | CENTER - | | | | | | LABORATORY | | + + + + + + | Hemoglobin | 10.7 (L) | 11.5 - 16.0 | [facility] | | | | | g/dL | [facility] | | | | | | MEDICAL | | | | | | CENTER - | | | | | | LABORATORY | | + + + + + + | Hematocrit | 35.1 | 34.0 - 47.0 % | [facility] | | | | | | [facility] | | | | | | MEDICAL | | | | | | CENTER - | | | | | | LABORATORY | | + + + + + + | MCV | 97.0 | 83.0 - 101.0 fL | [facility] | | | | | | [facility] | | | | | | MEDICAL | | | | | | CENTER - | | | | | | LABORATORY | | + + + + + + | MCH | 29.6 | 28.0 - 35.0 pg | [facility] [...] + + + + | RDW-CV | 14.8 | <15.0 % | [facility] | | | | | | [facility] | | | | | | MEDICAL | | | | | | CENTER - | | | | | | LABORATORY | | + + + + + + | RDW-SD | 52.9 (H) | 35.1 - 46.3 fL | [facility] | | | | | | [facility] | | | | | | MEDICAL | | | | | | CENTER - | | | | | | LABORATORY | | + + + + + + | Platelet | 187 | 140 - 440 K/uL | [facility] | | | Count | | | [facility] | | | | | | MEDICAL | | | | | | CENTER - | | | | | | LABORATORY | | + + + + + + | MPV | 9.9 | 6.5 - 12.4 fL | [facility] | | | | | | [facility] | | | | | | MEDICAL | | | | | | CENTER - | | | | | | LABORATORY | | + + + + + + | Immature | 1.4Comment: Low PLT + | 0.9 - 11.2 % | [facility] | | | Platelet | Low IPF are consistent | | [facility] | | | Fraction | with [...] [address] | [place] | [phone] | | [facility] | | [address] | | | - LABORATORY | | | | + + + + + Procalcitonin (06/04/2019 11:54 AM PDT) + + + + + + | Component | Value | Ref Range | Performed | Pathologist | | | | | At | Signature | + + + + + + | Procalciton | 6.16 ()Comment: | <=0.50 ng/mL | [facility] | | | in | Critical Result called | | [facility] | | | | to and read back by | | MEDICAL | | | | Ana Paula Owens RN on | | CENTER - | | | | 06/04/2019 at 12:58 by | | LABORATORY | | | | Marin Iglesias. | | | | + + + [...] [address] | [place] | [phone] | | [facility] | | [address] | | | - LABORATORY | | | | + + + + + Culture, Blood (06/04/2019 11:54 AM PDT) + + + + + [...] | [address] | [place] | [phone] | | [facility] | | [address] | | | - LABORATORY | | | | + + + + + Culture, Blood (06/04/2019 11:54 AM PDT) + + + + + + | Component | Value | Ref Range | Performed | Pathologist | | | | | At | Signature | + + + + + + | Culture | No growth after 5 days | | [facility] | | | | incubation. | | [facility] | | | [...] [address] | [place] | [phone] | | [facility] | | [address] | | | - LABORATORY | | | | + + + + + POC Glucose (06/04/2019 11:48 AM PDT) + +-------+ + + + | Component | Value | Ref Range | Performed | Pathologist | | | | | At | Signature | + +-------+ + + + | Glucose, | 92 | 70 - 109 mg/dL | [facility] | | | POC | | | [facility] | | [...] [address] | [place] | [phone] | | [facility] | | [address] | | | - LABORATORY | | | | + + + + + XR Chest AP Portable (06/04/2019 11:29 AM PDT) + + | Specimen | + + | | + + + + + | Narrative | Performed At | + + + | XR CHEST AP PORTABLE 06/04/2019 11:29 AM HISTORY: fever. | [facility] | | COMPARISON: 05/31/2019. Findings: Heart size is at the upper | | | limits of normal. There is atherosclerosis and tortuosity of the | | | aorta. A stent is noted over the lower mediastinum. Central pulmonary | | | vasculature is normal. Mild scarring is in the right lung base. The | | | left lung is clear. Degenerative changes are present of the shoulders. | | | There is moderate spondylosis. IMPRESSION - No acute findings. | | | Dictated and Signed by: Patrick Rodriguez MD Electronically signed: | | | 06/04/2019 12:30 PM | | + + + + + | Procedure Note | + + | Kobe, Rad Results In - 06/04/2019 12:33 PM PDT XR CHEST AP PORTABLE 06/04/2019 11:29 AM | | | | HISTORY: fever. | | | | COMPARISON: 05/31/2019. | | | | Findings: | | Heart size is at the upper limits of normal. There is atherosclerosis and | | tortuosity of the aorta. A stent is noted over the lower mediastinum. Central | | pulmonary vasculature is normal. Mild scarring is in the right lung base. The | | left lung is clear. Degenerative changes are present of the shoulders. There is | | moderate spondylosis. | | | | IMPRESSION - | | No acute findings. | | | | Dictated and Signed by: Patrick Rodriguez MD | | Electronically signed: 06/04/2019 12:30 PM | + + + +---------+ + + | Performing | Address | City/State/Zipcode | Phone Number | | Organization | | | | + +---------+ + + | [facility] | | | | + +---------+ + + Echo Limited (06/04/2019 7:43 AM PDT) + +---------+ + + + | Component | Value | Ref Range | Performed | Pathologist | | | | | At | Signature | + +---------+ + + + | Patient | 120 lbs | | [facility] | | | Weight | | | | | | (lbs) | | | | | + +---------+ + + + | Patient | 5'5 | | [facility] | | | Height | | | | | + +---------+ + + + | AV mean | 14.2 | mmHg | [facility] | | | gradient | | | | | + +---------+ + + + | LVOT peak | 145.55 | cm/s | [facility] | | | magalie | | | | | + +---------+ + + + | LVOT peak | 27.91 | cm | [facility] | | | VTI | | | | | + +---------+ + + + | AV peak magalie | 302.79 | cm/s | [facility] | | + +---------+ + + + | AV VTI | 47.62 | cm | [facility] | | + +---------+ + + + | AV peak | 36.67 | mmHg | [facility] | | | gradient | | | | | + +---------+ + + + | AV LVOT | 8.47 | mmHg | [facility] | | | Peak | | | | | | Gradient | | | | | + +---------+ + + + | AV LVOT | 4.34 | mmHg | [facility] | | | Mean | | | | | | Gradient | | | | | + +---------+ + + + | LVOT Mean | 97.18 | cm/s | [facility] | | | Velocity | | | | | + +---------+ + + + | AV Mean | 172.75 | cm/s | [facility] | | | Velocity | | | | | + +---------+ + + + | LA Major | 0.4762 | cm | [facility] | | + +---------+ + + + | LVEF-TTE | 55 | % | [facility] | | | TRANSTHORAC | | | | | | IC ECHO | | | | | + +---------+ + + + + + | Specimen | + + | | + + + + + | Narrative | Performed At | + + + | 1. This is a | [facility] | | limited echocardiogram to assess TAVR with normalizing hemoglobin of | | | 10.2. Normal left ventricular size, wall thickness with hyperdynamic | | | left ventricular systolic function. LVEF is 75 to 80%.3. 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 There is still significant increased | | | velocity across aortic valve of 3 m/s, peak gradient of 34 mmHg, mean | | | gradient 14 mmHg.4. When compared echocardiography on | | | (hemoglobin of 7), no significant changes. | | |significant changes. | | + + + + +---------+ + + | Performing | Address | City/State/Zipcode | Phone Number | | Organization | | | | + +---------+ + + | [facility] | | | | + +---------+ + + CBC with Differential (06/04/2019 6:17 AM PDT) + + + + + + | Component | Value | Ref Range | Performed | Pathologist | | | | | At | Signature | + + + + + + | WBC | 9.0 | 4.0 - 11.0 K/uL | [facility] | | | | | | [facility] | | | | | | [facility] | | | | | | [facility] - | | | | | | LABORATORY | | + + + + + + | RBC | 3.38 (L) | 3.70 - 5.20 | [facility] | | | | | M/uL | [facility] | | | | | | MEDICAL | | | | | | CENTER - | | | | | | LABORATORY | | + + + + + + | Hemoglobin | 10.0 (L) | 11.5 - 16.0 | [facility] | | | | | g/dL | [facility] | | | | | | MEDICAL | | | | | | CENTER - | | | | | | LABORATORY | | + + + + + + | Hematocrit | 32.5 (L) | 34.0 - 47.0 % | [facility] | | | | | | [facility] | | | | | | MEDICAL | | | | | | CENTER - | | | | | | LABORATORY | | + + + + + + | MCV | 96.2 | 83.0 - 101.0 fL | [facility] | | | | | | [facility] | | | | | | [facility]ICAL | | | | | | CENTER - | | | | | | LABORATORY | | + + + + + + | MCH | 29.6 | 28.0 - 35.0 pg | [facility] [...] + + + + | RDW-CV | 14.7 | <15.0 % | [facility] | | | | | | [facility] | | | | | | MEDICAL | | | | | | CENTER - | | | | | | LABORATORY | | + + + + + + | RDW-SD | 52.1 (H) | 35.1 - 46.3 fL | [facility] | | | | | | [facility] | | | | | | [facility]ICAL | | | | | | CENTER - | | | | | | LABORATORY | | + + + + + + | Platelet | 182 | 140 - 440 K/uL | [facility] | | | Count | | | [facility] | | | | | | MEDICAL | | | | | | CENTER - | | | | | | LABORATORY | | + + + + + + | MPV | 9.9 | 6.5 - 12.4 fL | [facility] | | | | | | [facility] | | | | | | MEDICAL | | | | | | CENTER - | | | | | | LABORATORY | | + + + + + + | % | 73.0 | 45.0 - 82.0 % | [facility] | | | Neutrophils | | | [facility] | | | | | | MEDICAL | | | | | | CENTER - | | | | | | LABORATORY | | + + + + + + | % | 13.1 (L) | 20.0 - 45.0 % | [facility] | | | Lymphocytes | | | [facility] | | | | | | MEDICAL | | | | | | CENTER - | | | | | | LABORATORY | | + + + + + + | % Monocytes | 11.2 | 4.0 - 12.0 % | [facility] | | | | | | [facility] | | | | | | MEDICAL | | | | | | CENTER - | | | | | | LABORATORY | | + + + + + + | % | 2.0 | 0.0 - 5.0 % | [facility] [...] + + + + | Absolute | 6.56 | 1.80 - 8.50 | [facility] | | | Neutrophils | | K/uL | [facility] | | | | | | MEDICAL | | | | | | CENTER - | | | | | | LABORATORY | | + + + + + + | Absolute | 1.18 | 0.60 - 3.20 | [facility] | | | Lymphocytes | | K/uL | [facility] | | | | | | MEDICAL | | | | | | CENTER - | | | | | | LABORATORY | | + + + + + + | Absolute | 1.01 (H) | 0.00 - 1.00 | [facility] | | | Monocytes | | K/uL | [facility] | | | | | | MEDICAL | | | | | | CENTER - | | | | | | LABORATORY | | + + + + + + | Absolute | 0.18 | 0.00 - 0.40 | [facility] | [...] + | [facility] | [address] | [place] | [phone] | | [facility] | | [address] | | | - LABORATORY | | | | + + + + + Basic Metabolic Panel (06/04/2019 6:17 AM PDT) + + + + + [...] + + + + | Creatinine | 0.84 | 0.55 - 1.02 | [facility] | [...] mL/min/1.73m2 | [facility] | | | [place] | RATE,ESTIMATED | | MEDICAL | | | | mL/min/1.59g9Jkzx than | | CENTER - | | [...] [address] | [place] | [phone] | | [facility] | | [address] | | | - LABORATORY | | | | + + + + + POC Glucose (06/03/2019 10:03 PM PDT) + +-------+ + + + | Component | Value | Ref Range | Performed | Pathologist | | | | | At | Signature | + +-------+ + + + | Glucose, | 95 | 70 - 109 mg/dL | [facility] | | | POC | | | [...] [address] | [place] | [phone] | | [facility] | | [address] | | | - LABORATORY | | | | + + + + + POC Glucose (06/03/2019 4:51 PM PDT) + +---------+ + + + | Component | Value | Ref Range | Performed | Pathologist | | | | | At | Signature | + +---------+ + + + | Glucose, | 127 (H) | 70 - 109 mg/dL | [facility] | | | POC | | | [facility] | | [...] [address] | [place] | [phone] | | [facility] | | [address] | | | - LABORATORY | | | | + + + + + POC Glucose (06/03/2019 11:33 AM PDT) + +-------+ + + + | Component | Value | Ref Range | Performed | Pathologist | | | | | At | Signature | + +-------+ + + + | Glucose, | 100 | 70 - 109 mg/dL | [facility] | | | POC | | | [facility] | | [...] [address] | [place] | [phone] | | [facility] | | [address] | | | - LABORATORY | | | | + + + + + CBC with Differential (06/03/2019 7:12 AM PDT) + + + + + + | Component | Value | Ref Range | Performed | Pathologist | | | | | At | Signature | + + + + + + | WBC | 8.1 | 4.0 - 11.0 K/uL | [facility] [...] + + + + | MCH | 29.5 | 28.0 - 35.0 pg | [facility] [...] + + + + | RDW-SD | 51.7 (H) | 35.1 - 46.3 fL | [facility] | | | | | | [facility] | | | | | | MEDICAL | | | | | | CENTER - | | | | | | LABORATORY | | + + + + + + | Platelet | 190 | 140 - 440 K/uL | [facility] [...] + + + + | % | 70.1 | 45.0 - 82.0 % | [facility] [...] + + + | % Monocytes | 12.7 (H) | 4.0 - 12.0 % | [facility] | | | | | | [facility] | | | | | | MEDICAL | | | | | | CENTER - | | | | | | LABORATORY | | + + + + + + | % | 3.0 | 0.0 - 5.0 % | [facility] [...] | | | Granulocyte | | | . [facility] | | | s | | | MEDICAL | | | | | | CENTER - | | | | | | LABORATORY | | + + + + + + | Absolute | 5.66 | 1.80 - 8.50 | [facility] | | | Neutrophils | | K/uL | [facility] | | | | | | MEDICAL | | | | | | CENTER - | | | | | | LABORATORY | | + + + + + + | Absolute | 1.09 | 0.60 - 3.20 | [facility] | | | Lymphocytes | | K/uL | [facility] | | | | | | MEDICAL | | | | | | CENTER - | | | | | | LABORATORY | | + + + + + + | Absolute | 1.03 (H) | 0.00 - 1.00 | [facility] | | | Monocytes | | K/uL | [facility] | | | | | | MEDICAL | | | | | | CENTER - | | | | | | LABORATORY | | + + + + + + | Absolute | 0.24 | 0.00 - 0.40 | [facility] | [...] [address] | [place] | [phone] | | [facility] | | [address] | | | - LABORATORY | | | | + + + + + Extra Lavender Top Tube (06/03/2019 7:12 AM PDT) + +-------+ + + + | Component | Value | Ref Range | Performed | Pathologist | | | | | At | Signature | + +-------+ + + + | Extra | Done | | [facility] | | | Lavender | | | [facility] | | | Top Tube | | [...] [address] | [place] | [phone] | | [facility] | | [address] | | | - LABORATORY | | | | + + + + + POC Glucose (06/03/2019 6:26 AM PDT) + +-------+ + + + | Component | Value | Ref Range | Performed | Pathologist | | | | | At | Signature | + +-------+ + + + | Glucose, | 97 | 70 - 109 mg/dL | [facility] | | | POC | | | [...] + | [facility] | [address] | [place] | [phone] | | [facility] | | [address] | | | - LABORATORY | | | | + + + + + Basic Metabolic Panel (06/03/2019 5:39 AM PDT) + + + + + [...] + + + + | Cl | 102 | 98 - 107 mmol/L | [facility] [...] | | | | | | [facility] | | | | | | MEDICAL | | | | | | CENTER - | | | | | | LABORATORY | | + + + + + + | Anion Gap | 8 | 3 - 16 mmol/L | [facility] | | | | | | [facility] | | | | | | MEDICAL | | | | | | CENTER - | | | | | | LABORATORY | | + + + + + + | Glucose | 89 | 60 - 106 mg/dL | [facility] [...] | | | FILTRATION | mL/min/1.73m2 | [facility] | | | [place] | RATE,ESTIMATED | | MEDICAL | | | | mL/min/1.54a2Pghp than | | CENTER - | | [...] 8.2 (L) | 8.7 - 10.4 | [facility] | | | | | mg/dL | [facility] | | | | | | MEDICAL | | | | | | CENTER - | | | | | | LABORATORY | | + + + + + + | BUN/Creatin | 24.4 | | [facility] | | | ine Ratio | | [...] [address] | [place] | [phone] | | [facility] | | [address] | | | - LABORATORY | | | | + + + + + Occult Blood, Stool, Specimen 1 (06/03/2019 2:21 AM PDT) + + + + + + | Component | Value | Ref Range | Performed | Pathologist | | | | | At | Signature | + + + + + + | Occult | Positive | | [facility] | | | Blood in | | | [facility] | | | 1st | | | [...] [address] | [place] | [phone] | | [facility] | | [address] | | | - LABORATORY | | | | + + + + + POC Glucose (06/02/2019 9:42 PM PDT) + +---------+ + + + | Component | Value | Ref Range | Performed | Pathologist | | | | | At | Signature | + +---------+ + + + | Glucose, | 119 (H) | 70 - 109 mg/dL | [facility] | | | POC | | | [facility] | | | [...] | [address] | [place] | [phone] | | [facility] | | [address] | | | - LABORATORY | | | | + + + + + Culture, Blood (06/02/2019 7:15 PM PDT) + + + + + + | Component | Value | Ref Range | Performed | Pathologist | | | | | At | Signature | + + + + + + | Culture | No growth after 5 days | | [facility] | | | | incubation. | | [facility] | | | [...] + | [facility] | [address] | [place] | [phone] | | [facility] | | [address] | | | - LABORATORY | | | | + + + + + Culture, Blood (06/02/2019 7:15 PM PDT) + + + + + [...] + | [facility] | [address] | [place] | [phone] | | [facility] | | [address] | | | - LABORATORY | | | | + + + + + Procalcitonin (06/02/2019 7:10 PM PDT) + + + + + + | Component | Value | Ref Range | Performed | Pathologist | | | | | At | Signature | + + + + + + | Procalciton | <0.05 | <=0.50 ng/mL | [facility] | | [...] + | [facility] | [address] | [place] | [phone] | | [facility] | | [address] | | | - LABORATORY | | | | + + + + + C-Reactive Protein (06/02/2019 7:10 PM PDT) + + + + + + | Component | Value | Ref Range | Performed | Pathologist | | | | | At | Signature | + + + + + + | CRP | 26.80 (H) | <10.00 mg/L | [facility] | [...] [address] | [place] | [phone] | | [facility] | | [address] | | | - LABORATORY | | | | + + + + + Sedimentation Rate (06/02/2019 7:10 PM PDT) + +-------+ + + + | Component | Value | Ref Range | Performed | Pathologist | | | | | At | Signature | + +-------+ + + + | Erythrocyte | 10 | <30 mm/hr | [facility] | | | | | | [facility] | | | Sedimentati | | | MEDICAL | | | on Rate | | | CENTER - | | [...] [address] | [place] | [phone] | | [facility] | | [address] | | | - LABORATORY | | | | + + + + + POC Glucose (06/02/2019 4:56 PM PDT) + + + + + + | Component | Value | Ref Range | Performed | Pathologist | | | | | At | Signature | + + + + + + | Glucose, | 114 (H)Comment: Glu2: | 70 - 109 mg/dL | [facility] | | | POC | Use This Result | | [facility] | | | [...] + | [facility] | [address] | [place] | [phone] | | [facility] | | [address] | | | - LABORATORY | | | | + + + + + POC Glucose (06/02/2019 11:56 AM PDT) + +---------+ + + + | Component | Value | Ref Range | Performed | Pathologist | | | | | At | Signature | + +---------+ + + + | Glucose, | 130 (H) | 70 - 109 mg/dL | [facility] | | | POC | | | [facility] | | [...] [address] | [place] | [phone] | | [facility] | | [address] | | | - LABORATORY | | | | + + + + + POC Glucose (06/02/2019 6:24 AM PDT) + +-------+ + + + | Component | Value | Ref Range | Performed | Pathologist | | | | | At | Signature | + +-------+ + + + | Glucose, | 82 | 70 - 109 mg/dL | [facility] | | | POC | | | [...] | [address] | [place] | [phone] | | [facility] | | [address] | | | - LABORATORY | | | | + + + + + Extra Green Top Tube (06/02/2019 5:42 AM PDT) + +-------+ + + + | Component | Value | Ref Range | Performed | Pathologist | | | | | At | Signature | + +-------+ + + + | Extra Green | Done | | [facility] | | | Top Tube | | | [facility] | | [...] [address] | [place] | [phone] | | [facility] | | [address] | | | - LABORATORY | | | | + + + + + CBC with Differential (06/02/2019 5:42 AM PDT) + + + + + + | Component | Value | Ref Range | Performed | Pathologist | | | | | At | Signature | + + + + + + | WBC | 6.4 | 4.0 - 11.0 K/uL | [facility] | | | | | | [facility] | | | | | | MEDICAL | | | | | | CENTER - | | | | | | LABORATORY | | + + + + + + | RBC | 3.34 (L) | 3.70 - 5.20 | [facility] | | | | | M/uL | [facility] | | | | | | MEDICAL | | | | | | CENTER - | | | | | | LABORATORY | | + + + + + + | Hemoglobin | 10.0 (L) | 11.5 - 16.0 | [facility] | | | | | g/dL | [facility] | | | | | | MEDICAL | | | | | | CENTER - | | | | | | LABORATORY | | + + + + + + | Hematocrit | 31.8 (L) | 34.0 - 47.0 % | [facility] | | | | | | [facility] | | | | | | MEDICAL | | | | | | CENTER - | | | | | | LABORATORY | | + + + + + + | MCV | 95.2 | 83.0 - 101.0 fL | [facility] | | | | | | [facility] | | | | | | MEDICAL | | | | | | CENTER - | | | | | | LABORATORY | | + + + + + + | MCH | 29.9 | 28.0 - 35.0 pg | [facility] [...] + + + + | RDW-CV | 14.4 | <15.0 % | [facility] | | | | | | [facility] | | | | | | MEDICAL | | | | | | CENTER - | | | | | | LABORATORY | | + + + + + + | RDW-SD | 50.4 (H) | 35.1 - 46.3 fL | [facility] | | | | | | [facility] | | | | | | MEDICAL | | | | | | CENTER - | | | | | | LABORATORY | | + + + + + + | Platelet | 183 | 140 - 440 K/uL | [facility] [...] + + + + | % | 66.5 | 45.0 - 82.0 % | [facility] | | | Neutrophils | | | [facility] | | | | | | MEDICAL | | | | | | CENTER - | | | | | | LABORATORY | | + + + + + + | % | 15.5 (L) | 20.0 - 45.0 % | [facility] | | | Lymphocytes | | | [facility] | | | | | | MEDICAL | | | | | | CENTER - | | | | | | LABORATORY | | + + + + + + | % Monocytes | 13.2 (H) | 4.0 - 12.0 % | [facility] | | | | | | [facility] | | | | | | MEDICAL | | | | | | CENTER - | | | | | | LABORATORY | | + + + + + + | % | 4.2 | 0.0 - 5.0 % | [facility] [...] + + + + | Absolute | 4.23 | 1.80 - 8.50 | [facility] | | | Neutrophils | | K/uL | [facility] | | | | | | MEDICAL | | | | | | CENTER - | | | | | | LABORATORY | | + + + + + + | Absolute | 0.99 | 0.60 - 3.20 | [facility] | | | Lymphocytes | | K/uL | [facility] | | | | | | MEDICAL | | | | | | CENTER - | | | | | | LABORATORY | | + + + + + + | Absolute | 0.84 | 0.00 - 1.00 | [facility] | [...] [address] | [place] | [phone] | | [facility] | | [address] | | | - LABORATORY | | | | + + + + + Red Blood Cells (PRBC) - Crossmatch (06/02/2019 12:03 AM PDT) + + + + + + | Component | Value | Ref Range | Performed | Pathologist | | | | | At | Signature | + + + + + + | Product | [id number] | | [facility] | | | Code | | | [facility] | | | | | | MEDICAL | | | | | | CENTER - | | | | | | BLOOD BANK | | + + + + + + | UNIT # | [id number] | | [facility] | | | | [...] | | INTERP | | | [facility] | | [...] + + + + | Blood | APOS | | [facility] | | | Product | | | [facility] | | | ABORh | | | MEDICAL | | | | | | CENTER - | | | | | | BLOOD BANK | | + + + + + + | Blood | [id number] | | [facility] | | | Product [...] [address] | [place] | | | [facility] | | [address] | | | - BLOOD BANK | | | | + + + + + Extra Blue Top Tube (06/01/2019 10:01 PM PDT) + +-------+ + + + | Component | Value | Ref Range | Performed | Pathologist | | | | | At | Signature | + +-------+ + + + | Extra Blue | Done | | [facility] | | | Top Tube | | | [facility] | | [...] [address] | [place] | [phone] | | [facility] | | [address] | | | - LABORATORY | | | | + + + + + B Type Natriuretic Peptide (06/01/2019 10:00 PM PDT) + +---------+ + + + | Component | Value | Ref Range | Performed | Pathologist | | | | | At | Signature | + +---------+ + + + | BNP | 269 (H) | <100 pg/mL | [facility] | [...] + | [facility] | [address] | [place], [place] | [phone] | | [facility] | | [address] | | | - LABORATORY | | | | + + + + + Basic Metabolic Panel (06/01/2019 9:59 PM PDT) + + + + + [...] + + + + | Cl | 105 | 98 - 107 mmol/L | [facility] [...] + + + + | Glucose | 201 (H) | 60 - 106 mg/dL | [facility] | | | | | | [facility] | | | | | | MEDICAL | | | | | | CENTER - | | | | | | LABORATORY | | + + + + + + | BUN | 18 | 9 - 23 mg/dL | [facility] | | | | | | [facility] | | | | | | MEDICAL | | | | | | CENTER - | | | | | | LABORATORY | | + + + + + + | Creatinine | 0.84 | 0.55 - 1.02 | [facility] | [...] mL/min/1.73m2 | [facility] | | | [place] | RATE,ESTIMATED | | MEDICAL | | | | mL/min/1.61c5Kqki than | | CENTER - | | [...] 8.2 (L) | 8.7 - 10.4 | [facility] | | | | | mg/dL | [facility] | | | | | | MEDICAL | | | | | | CENTER - | | | | | | LABORATORY | | + + + + + + | BUN/Creatin | 21.4 | | [facility] | | | ine [...] [address] | [place] | [phone] | | [facility] | | [address] | | | - LABORATORY | | | | + + + + + Type and Screen (06/01/2019 9:53 PM PDT) + + + + + [...] | | Screen | | | [facility] | | [...] St | [place] | | | [facility] | | [address] | | | - BLOOD BANK | | | | + + + + + CBC with Differential (06/01/2019 9:16 PM PDT) + + + + + + | Component | Value | Ref Range | Performed | Pathologist | | | | | At | Signature | + + + + + + | WBC | 5.0 | 4.0 - 11.0 K/uL | [facility] | | | | | | [facility] | | | | | | MEDICAL | | | | | | CENTER - | | | | | | LABORATORY | | + + + + + + | RBC | 2.51 (L) | 3.70 - 5.20 | [facility] | | | | | M/uL | [facility] | | | | | | MEDICAL | | | | | | CENTER - | | | | | | LABORATORY | | + + + + + + | Hemoglobin | 7.3 (LL)Comment: | 11.5 - 16.0 | [facility] | | | | Critical Result called | g/dL | [facility] | | | | to and read back by Morgan | | MEDICAL | | | | Jazz Dowell RN on | | CENTER - | | | | 06/01/2019 at 21:33 by | | LABORATORY | | | | Medardo Gomez | | | | + + + + + + | Hematocrit | 24.3 (L) | 34.0 - 47.0 % | [facility] | | | | | | [facility] | | | | | | MEDICAL | | | | | | CENTER - | | | | | | LABORATORY | | + + + + + + | MCV | 96.8 | 83.0 - 101.0 fL | [facility] [...] + + + + | MCHC | 30.0 (L) | 32.0 - 36.0 | [facility] | | | | | g/dL | [facility] | | | | | | MEDICAL | | | | | | CENTER - | | | | | | LABORATORY | | + + + + + + | RDW-CV | 14.2 | <15.0 % | [facility] | | | | | | [facility] | | | | | | MEDICAL | | | | | | CENTER - | | | | | | LABORATORY | | + + + + + + | RDW-SD | 51.1 (H) | 35.1 - 46.3 fL | [facility] | | | | | | [facility] | | | | | | MEDICAL | | | | | | CENTER - | | | | | | LABORATORY | | + + + + + + | Platelet | 155 | 140 - 440 K/uL | [facility] [...] + + + + | % | 79.2 | 45.0 - 82.0 % | [facility] [...] + + + | % Monocytes | 8.7 | 4.0 - 12.0 % | [facility] [...] + + + + | Absolute | 3.92 | 1.80 - 8.50 | [facility] | | | Neutrophils | | K/uL | [facility] | | | | | | [facility] | | | | | | CENTER - | | | | | | LABORATORY | | + + + + + + | Absolute | 0.53 (L) | 0.60 - 3.20 | [facility] [...] | Absolute | 0.01 | 0.00 - 0.03 | [facility] | [...] [address] | [place] | [phone] | | [facility] | | [address] | | | - LABORATORY | | | | + + + + + POC Glucose (06/01/2019 8:14 PM PDT) + +---------+ + + + | Component | Value | Ref Range | Performed | Pathologist | | | | | At | Signature | + +---------+ + + + | Glucose, | 211 (H) | 70 - 109 mg/dL | [facility] | | | POC | | | [facility] | | [...] + | [facility] | [address] | [place] | [phone] | | [facility] | | [address] | | | - LABORATORY | | | | + + + + + POC Glucose (06/01/2019 4:58 PM PDT) + +---------+ + + + | Component | Value | Ref Range | Performed | Pathologist | | | | | At | Signature | + +---------+ + + + | Glucose, | 202 (H) | 70 - 109 mg/dL | [facility] | | | POC | | | [facility] | | | | | [...] + | [facility] | [address] | [place] | [phone] | | [facility] | | [address] | | | - LABORATORY | | | | + + + + + POC Glucose (06/01/2019 12:05 PM PDT) + +---------+ + + + | Component | Value | Ref Range | Performed | Pathologist | | | | | At | Signature | + +---------+ + + + | Glucose, | 122 (H) | 70 - 109 mg/dL | [facility] | | | POC | | | [...] [facility] | [address] | [place] | [phone] | | [facility] | | [address] | | | - LABORATORY | | | | + + + + + Lactate Dehydrogenase (06/01/2019 10:32 AM PDT) + + + + + + | Component | Value | Ref Range | Performed | Pathologist | | | | | At | Signature | + + + + + + | LDH TOTAL | 323 (H)Comment: New | 120 - 246 U/L | [facility] | | | | method [...] + | [facility] | [address] | [place] | [phone] | | [facility] | | [address] | | | - LABORATORY | | | | + + + + + Folate (06/01/2019 10:32 AM PDT) + +-------+ + + + | Component | Value | Ref Range | Performed | Pathologist | | | | | At | Signature | + +-------+ + + + | FOLATE | 14.1 | >5.4 ng/mL | [facility] | | | | | [...] [address] | [place] | [phone] | | [facility] | | [address] | | | - LABORATORY | | | | + + + + + Vitamin B-12 (06/01/2019 10:32 AM PDT) + + + + + + | Component | Value | Ref Range | Performed | Pathologist | | | | | At | Signature | + + + + + + | VITAMIN | 333Comment: DEFICIENT: | 156 - 672 pg/mL | [facility] | | | B-12 | <145 | | [facility] | | | | pg/mLINDETERMINATE: | | MEDICAL | | | | 145-180 pg/mL | | CENTER - | | | [...] [address] | [place] | [phone] | | [facility] | | [address] | | | - LABORATORY | | | | + + + + + Iron and Transferrin (06/01/2019 10:32 AM PDT) + + + + + + | Component | Value | Ref Range | Performed | Pathologist | | | | | At | Signature | + + + + + + | Iron | 26 (L) | 50 - 170 ug/dL | [facility] | [facility] | | [facility] | | | | | | MEDICAL | | | | | | CENTER - | | | | | | LABORATORY | | + + + + + + | TRANSFERRIN | 178.0 (L) | 250.0 - 380.0 | [facility] | | | | | mg/dL | [facility] | | | | | | MEDICAL | | | | | | CENTER - | | | | | | LABORATORY | | + + + + + + | TIBC | 249 | 235 - 425 ug/dL | [facility] | | | | | [facility] | | | | | | [facility] | | | | | | CENTER - | | | | | | LABORATORY | | + + + + + + | % | 10.4 (L) | 15.0 - 50.0 % | [facility] | | | [facility] | | | [facility] | | [...] [address] | [place] | [phone] | | [facility] | | [address] | | | - LABORATORY | | | | + + + + + ECHO Complete (06/01/2019 8:21 AM PDT) + + + + + + | Component | Value | Ref Range | Performed | Pathologist | | | | | At | Signature | + + + + + + | Patient | 124 lbs | | [facility] | | | Weight | | | | | | (lbs) | | | | | + + + + + + | Patient | 5'5 | | [facility] | | | Height | | | | | + + + + + + | LVIDd | 3.42 | cm | [facility] | | + + + + + + | FS | 40 | % | [facility] | | + + + + + + | LA volume | 57.96 | mL | [facility] | | + + + + + + | Ascending | 2.8 | cm | [facility] | | | aorta | | | | | + + + + + + | Aortic arch | 2.44 | cm | [facility] | | + + + + + + | AV | 352.7 | msec | [facility] | | | regurgitati | | | | | | on pressure | | | | | | 1/2 time | | | | | + + + + + + | AV mean | 14.5 | mmHg | [facility] | | | gradient | | | | | + + + + + + | MV mean | 6.18 | mmHg | [facility] | | | gradient | | | | | + + + + + + | IVRT | 89.97 | msec | [facility] | | + + + + + + | LVOT peak | 130.28 | cm/s | [facility] | | | magalie | | | | | + + + + + + | LVOT peak | 30.3 | cm | [facility] | | | VTI | | | | | + + + + + + | AV peak magalie | 312.98 | cm/s | [facility] | | + + + + + + | AV VTI | 59.22 | cm | [facility] | | + + + + + + | MR max magalie | 482.14 | cm/s | [facility] | | + + + + + + | AV peak | 39.18 | mmHg | [facility] | | | gradient | | | | | + + + + + + | MV peak | 13.91 | mmHg | [facility] | | | gradient | | | | | + + + + + + | LA Volume | 36 | mL/m2 | [facility] | | | Index | | | | | + + + + + + | AV LVOT | 6.79 | mmHg | [facility] | | | Peak | | | | | | Gradient | | | | | + + + + + + | AV LVOT | 3.15 | mmHg | [facility] | | | Mean | | | | | | Gradient | | | | | + + + + + + | TR Peak | 41 | mmHg | [facility] | | | Gradient | | | | | + + + + + + | TR Velocity | 321.27 | cm | [facility] | | + + + + + + | LV | 8.17 | cm | [facility] | | | Diastolic | | | | | | Length 4C | | | | | + + + + + + | LV | 65 | % | [facility] | | | Schulz's | | | | | | Biplane EF | | | | | + + + + + + | LV ED | 52.84 | ml | [facility] | | | Volume | | | | | | (Schulz's) | | | | | + + + + + + | LV ED | 33 | ml/m2 | [facility] | | | Volume | | | | | | Index | | | | | + + + + + + | LV ES | 18.16 | ml | [facility] | | | Volume | | | | | + + + + + + | LVOT Mean | 81.84 | cm/s | [facility] | | | Velocity | | | | | + + + + + + | MV E' | 6 | cm/s | [facility] | | | Septal | | | | | | Velocity | | | | | + + + + + + | MV | 568.97 | cm/s2 | [facility] | | | Deceleratio | | | | | | n Bent | | | | | + + + + + + | MV | 269.16 | msec | [facility] | | | Deceleratio | | | | | | n Time | | | | | + + + + + + | MV E/A | 0.93 | | [facility] | | | Ratio | | | | | + + + + + + | MV Mean | 117.75 | cm/s | [facility] | | | Velocity | | | | | + + + + + + | MV Peak | 164.48 | cm/s | [facility] | | | A-Wave | | | | | + + + + + + | MV Peak | 153.14 | cm/s | [facility] | | | E-Wave | | | | | + + + + + + | AV | 271.8 | cm/s2 | [facility] | | | Deceleratio | | | | | | n Bent | | | | | + + + + + + | AV | 1,274.52 | msec | [facility] | | | Deceleratio | | | | | | n Time | | | | | + + + + + + | AV Mean | 168.44 | cm/s | [facility] | | | Velocity | | | | | + + + + + + | LA Area | 17.96 | cm2 | [facility] | | + + + + + + | MV E/E | 25.52 | | [facility] | | | SEPTAL | | | | | + + + + + + | LA Major | 0.5922 | cm | [facility] | | + + + + + + | LV ES | 11 | ml/m2 | [facility] | | | Volume | | | | | | Index | | | | | + + + + + + | IVS | 1.19 | cm | [facility] | | | Diastolic | | | | | | Thickness | | | | | | MM | | | | | + + + + + + | LVPW | 1.29 | cm | [facility] | | | Diastolic | | | | | | Thickness | | | | | | MM | | | | | + + + + + + | IVS | 1.31 | cm | [facility] | | | Systolic | | | | | | Thickness | | | | | | MM | | | | | + + + + + + | LV Systolic | 2.05 | cm | [facility] | | | Diameter | | | | | | MM | | | | | + + + + + + | LVPW | 1.44 | cm | [facility] | | | Systolic | | | | | | Thickness | | | | | | MM | | | | | + + + + + + | LA Systolic | 3.5 | cm | [facility] | | | Diameter | | | | | | MM | | | | | + + + + + + | TAPSE | 2.3 | cm | [facility] | | + + + + + + | LVEF-TTE | 80 | % | [facility] | | | TRANSTHORAC | | | | | | IC ECHO | | | | | + + + + + + | RA PRESSURE | 3 | mmHg | [facility] | | + + + + + + | RVSP | 44 | mmHg | [facility] | | | Estimated | | | | | + + + + + + + + | Specimen | + + | | + + + + | Addenda | + + | Addendum by Clint Jovel MD on 06/04/2019 7:58 AM 1. Mild biatrial | | dilatation. 2. Normal left ventricular size with a mild concentric left ventricular | | hypertrophy. Left ventricular systolic function is hyperdynamic. LVEF is 75-80 %. | | 3. Grade 1 left ventricular diastolic dysfunction. 4. 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 There is a trace perivalvular aortic valve | | insufficiency. 5. 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 There is a mild mitral valve regurgitation. There is also a | | mild calcific mitral valve stenosis. 6. Moderate mitral annular calcification. 7. | | Mild to moderate tricuspid valve regurgitation. 8. Mild pulmonary hypertension with | | a peak systolic pressure of 45 to 50 mmHg. 9. Normal IVC with a normal respiratory | | collapse. | + + + + + | Narrative | Performed At | + + + | 1. Mild | [facility] | | biatrial dilatation.2. Normal left ventricular size with a mild | | | concentric left ventricular hypertrophy. Left ventricular systolic | | | function is preserved. LVEF is 65%.3. Grade 1 left ventricular | | | diastolic dysfunction.4. Evidence of a TAVR with significant | | | increased velocity across aortic valve of 3.1 m/s, peak gradient of 39 | | | mmHg, mean gradient of 15 mmHg. There is a trace perivalvular | | | aortic valve insufficiency.5. Moderately thickened and calcified | | | mitral valve suggesting myxomatous change. There is a mild mitral | | | valve regurgitation. There is also a mild calcific mitral valve | | | stenosis.6. Moderate mitral annular calcification.7. Mild to | | | moderate tricuspid valve regurgitation.8. Mild pulmonary | | | hypertension with a peak systolic pressure of 45 to 50 mmHg.9. | | | Normal IVC with a normal respiratory collapse. | | |mmHg. | | |9. Normal IVC with a normal respiratory collapse. | | + + + + +---------+ + + | Performing | Address | City/State/Zipcode | Phone Number | | Organization | | | | + +---------+ + + | [facility] | | | | + +---------+ + + POC Glucose (06/01/2019 6:36 AM PDT) + +-------+ + + + | Component | Value | Ref Range | Performed | Pathologist | | | | | At | Signature | + +-------+ + + + | Glucose, | 89 | 70 - 109 mg/dL | [facility] | | | POC | | | [facility] | | [...] [address] | [place] | [phone] | | [facility] | | [address] | | | - LABORATORY | | | | + + + + + Retic Count (06/01/2019 2:13 AM PDT) + + + + + + | Component | Value | Ref Range | Performed | Pathologist | | | | | At | Signature | + + + + + + | % | 1.8 (H) | 0.5 - 1.5 % | [facility] | | | Reticulocyt | | | [facility] | | | e Count | | | [facility]ICAL | | | | | | CENTER - | | | | | | LABORATORY | | + + + + + + | Absolute | 0.0466 | 0.0164 - 0.0776 | [facility] | | | Reticulocyt | | M/uL | [facility] | | | e Count | | | MEDICAL | | | | | | CENTER - | | | | | | LABORATORY | | + + + + + + | Immature | 10.7Comment: Values | 2.3 - 15.9 % | [facility] | | | Reticulocyt | above normal range | | [facility] | | | e Fraction | indicate an increase in | | MEDICAL | | | | RBC production in the | | CENTER - | | | | bone marrow. | | LABORATORY | | + + + + + + | Reticulocyt | 27.3 (L)Comment: Values | 29.0 - 38.0 pg | [facility] | | | e | below 29 pg are an early | | [facility] | | | Hemoglobin | indicator of iron | | MEDICAL | | | Content | deficiency. | | CENTER - | | | | | | LABORATORY | | + + + + + + + + | Specimen | + + | Blood | + + + + + + + | Performing | Address | City/State/Zipcode | Phone Number | | Organization | | | | + + + + + | [facility] | [address] | [place] | [phone] | | [facility] | | [address] | | | - LABORATORY | | | | + + + + + CBC with Differential (06/01/2019 2:13 AM PDT) + + + + + + | Component | Value | Ref Range | Performed | Pathologist | | | | | At | Signature | + + + + + + | WBC | 6.4 | 4.0 - 11.0 K/uL | [facility] | | | | | | [facility] | | | | | | MEDICAL | | | | | | CENTER - | | | | | | LABORATORY | | + + + + + + | RBC | 2.64 (L) | 3.70 - 5.20 | [facility] | | | | | M/uL | [facility] | | | | | | MEDICAL | | | | | | CENTER - | | | | | | LABORATORY | | + + + + + + | Hemoglobin | 7.7 (L) | 11.5 - 16.0 | [facility] | | | | | g/dL | [facility] | | | | | | MEDICAL | | | | | | CENTER - | | | | | | LABORATORY | | + + + + + + | Hematocrit | 25.3 (L) | 34.0 - 47.0 % | [facility] | | | | | | [facility] | | | | | | MEDICAL | | | | | | CENTER - | | | | | | LABORATORY | | + + + + + + | MCV | 95.8 | 83.0 - 101.0 fL | [facility] [...] + + + + | Platelet | 143 | 140 - 440 K/uL | [facility] [...] + + + + | % | 68.7 | 45.0 - 82.0 % | [facility] | | | Neutrophils | | | [facility] | | | | | | MEDICAL | | | | | | CENTER - | | | | | | LABORATORY | | + + + + + + | % | 13.8 (L) | 20.0 - 45.0 % | [facility] | | | Lymphocytes | | | [facility] | | | | | | MEDICAL | | | | | | CENTER - | | | | | | LABORATORY | | + + + + + + | % Monocytes | 14.3 (H) | 4.0 - 12.0 % | [facility] [...] + + + + | Absolute | 4.39 | 1.80 - 8.50 | [facility] | | | Neutrophils | | K/uL | [facility] | | | | | | MEDICAL | | | | | | CENTER - | | | | | | LABORATORY | | + + + + + + | Absolute | 0.88 | 0.60 - 3.20 | [facility] | | | Lymphocytes | | K/uL | [facility] | | | | | | MEDICAL | | | | | | CENTER - | | | | | | LABORATORY | | + + + + + + | Absolute | 0.91 | 0.00 - 1.00 | [facility] | | | Monocytes | | K/uL | [facility] | | | | | | MEDICAL | | | | | | CENTER - | | | | | | LABORATORY | | + + + + + + | Absolute | 0.16 | 0.00 - 0.40 | [facility] | [...] + | [facility] | [address] | [place], [place] | [phone] | | [facility] | | [address] | | | - LABORATORY | | | | + + + + + Ferritin (06/01/2019 2:13 AM PDT) + +-------+ + + + | Component | Value | Ref Range | Performed | Pathologist | | | | | At | Signature | + +-------+ + + + | FERRITIN | 219 | 7 - 271 ng/mL | [facility] | | | | | [...] [address] | [place] | [phone] | | [facility] | | [address] | | | - LABORATORY | | | | + + + + + Troponin I (06/01/2019 2:13 AM PDT) + + + + + [...] | | | | | | [employer] | | | | | [...] [address] | [place] | [phone] | | [facility] | | [address] | | | - LABORATORY | | | | + + + + + Magnesium (06/01/2019 2:13 AM PDT) + +-------+ + + + [...] + | [facility] | [address] | [place] | [phone] | | [facility] | | [address] | | | - LABORATORY | | | | + + + + + Basic Metabolic Panel (06/01/2019 2:13 AM PDT) + + + + + [...] + + + + | K | 4.1 | 3.4 - 5.1 | [facility] | [...] + + + + | Glucose | 141 (H) | 60 - 106 mg/dL | [facility] | | | | | | [facility] | | | | | | MEDICAL | | | | | | CENTER - | | | | | | LABORATORY | | + + + + + + | BUN | 12 | 9 - 23 mg/dL | [facility] | | | | | | [facility] | | | | | | MEDICAL | | | | | | CENTER - | | | | | | LABORATORY | | + + + + + + | Creatinine | 0.81 | 0.55 - 1.02 | [facility] | [...] | | | FILTRATION | mL/min/1.73m2 | [facility] | | | [facility] | RATE,ESTIMATED | | MEDICAL | | | | mL/min/1.51y0Oehl than | | CENTER - | | [...] | | | | | mg/dL | [facility] | | | | | | MEDICAL | | | | | | CENTER - | | | | | | LABORATORY | | + + + + + + | BUN/Creatin | 14.8 | | [facility] | | | ine Ratio | | | [facility] | | | [...] [address] | [place] | [phone] | | [facility] | | [address] | | | - LABORATORY | | | | + + + + + CT Head wo Contrast (05/31/2019 10:15 PM PDT) + + | Specimen | + + | | + + + + + | Narrative | Performed At | + + + | CT HEAD WITHOUT CONTRAST CLINICAL INFORMATION: Patient fell | [facility] | | and hit her head. COMPARISON: None. PROCEDURE: Axial images | | | were obtained through the head without IV contrast. Multiplanar | | | reformations were obtained from the acquisition data. At least one | | | of the following CT dose optimization techniques were used: | | | Automated exposure control; Adjustment of mA and/or kV according to | | | patient size; Use of iterative reconstruction technique. HEAD | | | FINDINGS: BRAIN: No areas of increased attenuation to suggest | | | intracranial hemorrhage. There is no mass, mass effect, or midline | | | shift. There are no abnormal extra-axial fluid or air collections. | | | There is preservation of the benitez-white differentiation at this | | | time. There is mild cerebral atrophy. There is appropriate | | | associated prominence of the ventricles. There are jnth-tk-yqcpkimn | | | scattered regions of periventricular and subcortical white matter low | | | density. Severe intracranial arteriosclerosis. There appear to be | | | small bilateral basal ganglia lacunar infarcts. SCALP/ CALVARIUM: | | | The scalp and skull are intact and are unremarkable. SINUSES / | | | ORBITS/ MASTOIDS: The visible mastoid air cells and paranasal sinuses | | | are clear. Evidence of bilateral lens replacements. IMPRESSION- | | | 1. No acute traumatic intracranial finding. No acute intracranial | | | hemorrhage. 2. 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 3. Severe | | | intracranial arteriosclerosis. Dictated and Signed by: Bartolome | | | MD Tawanda Electronically signed: 06/01/2019 9:15 AM | | + + + + + | Procedure Note | + + | Koeb, Rad Results In - 06/01/2019 9:19 AM PDT | | CT HEAD WITHOUT CONTRAST | | | | CLINICAL INFORMATION: | | Patient fell and hit her head. | | | | COMPARISON: | | None. | | | | PROCEDURE: | | Axial images were obtained through the head without IV contrast. | | Multiplanar reformations were obtained from the acquisition data. | | | | At least one of the following CT dose optimization techniques were | | used: Automated exposure control; Adjustment of mA and/or kV according | | to patient size; Use of iterative reconstruction technique. | | | | HEAD FINDINGS: | | | | BRAIN: No areas of increased attenuation to suggest intracranial hemorrhage. | | There is no mass, mass effect, or midline shift. There are no abnormal | | extra-axial fluid or air collections. There is preservation of the benitez-white | | differentiation at this time. There is mild cerebral atrophy. There is | | appropriate associated prominence of the ventricles. There are wxyh-ly-yexhalev | | scattered regions of periventricular and subcortical white matter low density. | | Severe intracranial arteriosclerosis. There appear to be small bilateral basal | | ganglia lacunar infarcts. | | | | SCALP/ CALVARIUM: The scalp and skull are intact and are unremarkable. | | | | SINUSES / ORBITS/ MASTOIDS: The visible mastoid air cells and paranasal sinuses | | are clear. Evidence of bilateral lens replacements. | | | | IMPRESSION- | | 1. No acute traumatic intracranial finding. No acute intracranial | | hemorrhage. | | 2. Mild diffuse age related volume loss and mild to moderate | | periventricular and subcortical white matter hypodensity likely | | suggesting chronic microvascular ischemic gliosis. | | 3. Severe intracranial arteriosclerosis. | | | | Dictated and Signed by: Bartolome Neff MD | | Electronically signed: 06/01/2019 9:15 AM | + + + +---------+ + + | Performing | Address | City/State/Zipcode | Phone Number | | Organization | | | | + +---------+ + + | [facility] | | | | + +---------+ + + POC Glucose (05/31/2019 8:49 PM PDT) + +---------+ + + + | Component | Value | Ref Range | Performed | Pathologist | | | | | At | Signature | + +---------+ + + + | Glucose, | 174 (H) | 70 - 109 mg/dL | [facility] | | | POC | | | [facility] | | [...] + | [facility] | [address] | [place] | [phone] | | [facility] | | [address] | | | - LABORATORY | | | | + + + + + Troponin I (05/31/2019 7:59 PM PDT) + + + + + + | Component | Value | Ref Range | Performed | Pathologist | | | | | At | Signature | + + + + + + | Troponin I | 0.11 (H)Comment: | <0.06 ng/mL | [facility] | | | | Comment:Reference | | [facility] | | | | Ranges: 0.00-0.06 [...] | | | | | | [employer] | | | | | [...] [address] | [place] | [phone] | | [facility] | | [address] | | | - LABORATORY | | | | + + + + + CBC no Differential (05/31/2019 7:59 PM PDT) + + + + + + | Component | Value | Ref Range | Performed | Pathologist | | | | | At | Signature | + + + + + + | WBC | 7.7 | 4.0 - 11.0 K/uL | [facility] | | | | | | [facility] [...] + + + + | Hemoglobin | 8.2 (L) | 11.5 - 16.0 | [facility] | | | | | g/dL | [facility] | | | | | | MEDICAL | | | | | | CENTER - | | | | | | LABORATORY | | + + + + + + | Hematocrit | 26.7 (L) | 34.0 - 47.0 % | [facility] | | | | | | [facility] | | | | | | MEDICAL | | | | | | CENTER - | | | | | | LABORATORY | | + + + + + + | MCV | 97.1 | 83.0 - 101.0 fL | [facility] [...] + + + + | RDW-CV | 14.8 | <15.0 % | [facility] | | | | | | [facility] | | | | | | MEDICAL | | | | | | CENTER - | | | | | | LABORATORY | | + + + + + + | RDW-SD | 52.1 (H) | 35.1 - 46.3 fL | [facility] | | | | | | [facility] | | | | | | MEDICAL | | | | | | CENTER - | | | | | | LABORATORY | | + + + + + + | Platelet | 166 | 140 - 440 K/uL | [facility] | | | Count | | | [facility] | | | | | | MEDICAL | | | | | | CENTER - | | | | | | LABORATORY | | + + + + + + | MPV | 9.8 | 6.5 - 12.4 fL | [facility] | | | | | | [facility] | | [...] | [address] | [place] | [phone] | | [facility] | | [address] | | | - LABORATORY | | | | + + + + + POC Blood Gases (05/31/2019 2:28 PM PDT) + +---------+ + + + | Component | Value | Ref Range | Performed | Pathologist | | | | | At | Signature | + +---------+ + + + | Specimen | Artery | | [facility] | | | Source | | | [facility] | | | | | | MEDICAL | | | | | | CENTER - | | | | | | LABORATORY | | + +---------+ + + + | Chloride, | 109 | 98 - 109 mEq/L | [facility] | | | POC | | | [facility] | | | | | | MEDICAL | | | | | | CENTER - | | | | | | LABORATORY | | + +---------+ + + + | Potassium, | 3.6 | 3.5 - 5.0 | [facility] | | | POC | | mmol/L | [facility] | | | | | | MEDICAL | | | | | | CENTER - | | | | | | LABORATORY | | + +---------+ + + + | Glucose, | 211 (H) | 70 - 109 mg/dL | [facility] | | | POC | | | [facility] | | | | | | MEDICAL | | | | | | CENTER - | | | | | | LABORATORY | | + +---------+ + + + | Creatinine, | 1.0 | 0.6 - 1.3 mg/dL | [facility] | | | POC | | | [facility] | | | | | | MEDICAL | | | | | | CENTER - | | | | | | LABORATORY | | + +---------+ + + + | eGFR if not | 52 | 1 - 401 | [facility] | | | | | mL/min/1.73m2 | [facility] | | [facility] | | | [facility] | | | | | | CENTER - | | | | | | LABORATORY | | + +---------+ + + + | Lactate, | 1.45 | 0.50 - 2.20 | [facility] | | | POC | | mmol/L | [facility] | | | | | | MEDICAL | | | | | | CENTER - | | | | | | LABORATORY | | + +---------+ + + + | Sodium, | 140.00 | 136 - 149 mEq/L | [facility] | | | Venous, POC | | | [facility] | | [...] [address] | [place] | [phone] | | [facility] | | [address] | | | - LABORATORY | | | | + + + + + Urinalysis with Microscopic with Culture if Indicated (05/31/2019 2:18 PM PDT) + + + + + [...] + + + + | Specific | 1.006 | 1.001 - 1.030 | [facility] | | | [place], | | | [facility] | | [...] + + + + | Squamous | 10-15 (A) | 0 - 2 /LPF | [...] + + + + + + | Amorphous | Few (A) | None Seen /HPF | [facility] | | | Crystals, | | | [facility] | | [...] [address] | [place] | [phone] | | [facility] | | [address] | | | - LABORATORY | | | | + + + + + Magnesium (05/31/2019 2:07 PM PDT) + +-------+ + + + [...] + | [facility] | [address] | [place] | [phone] | | [facility] | | [address] | | | - LABORATORY | | | | + + + + + Lactic Acid (05/31/2019 2:07 PM PDT) + +-------+ + + + | Component | Value | Ref Range | Performed | Pathologist | | | | | At | Signature | + +-------+ + + + | Lactate | 2.0 | 0.5 - 2.2 | [facility] | [...] + | [facility] | [address] | [place] | [phone] | | [facility] | | [address] | | | - LABORATORY | | | | + + + + + CK Total (05/31/2019 2:07 PM PDT) + +-------+ + + + | Component | Value | Ref Range | Performed | Pathologist | | | | | At | Signature | + +-------+ + + + | CK TOTAL | 41 | 34 - 145 U/L | [facility] | | | | | [...] | [address] | [place], [place] | [phone] | | [facility] | | [address] | | | - LABORATORY | | | | + + + + + Troponin I (05/31/2019 2:07 PM PDT) + + + + + + | Component | Value | Ref Range | Performed | Pathologist | | | | | At | Signature | + + + + + + | Troponin I | 0.13 (H)Comment: | <0.06 ng/mL | [facility] | [...] | | | | | | [employer] | | | | | [...] [address] | [place] | [phone] | | [facility] | | [address] | | | - LABORATORY | | | | + + + + + Protime INR (05/31/2019 2:07 PM PDT) + + + + + + | Component | Value | Ref Range | Performed | Pathologist | | | | | At | Signature | + + + + + + | Prothrombin | 13.9 | 11.3 - 13.9 | [facility] | [...] + | [facility] | [address] | [place] | [phone] | | [facility] | | [address] | | | - LABORATORY | | | | + + + + + Lipase (05/31/2019 2:07 PM PDT) + + + + + + | Component | Value | Ref Range | Performed | Pathologist | | | | | At | Signature | + + + + + + | Lipase | 24Comment: New method in | 12 - 53 U/L | [facility] | | | | use as of December 02, | | [facility] | | | | 2018. [...] + | [facility] | [address] | [place] | [phone] | | [facility] | | [address] | | | - LABORATORY | | | | + + + + + Comprehensive Metabolic Panel (05/31/2019 2:07 PM PDT) + + + + + + | Component | Value | Ref Range | Performed | Pathologist | | | | | At | Signature | + + + + + + | Na | 139 | 136 - 145 | [facility] | [...] + + + + | Cl | 105 | 98 - 107 mmol/L | [facility] [...] + + + + | Glucose | 220 (H) | 60 - 106 mg/dL | [facility] | | | | | [facility] | | | | | | [facility] | | | | | | [facility] - | | | | | | LABORATORY | | + + + + + + | BUN | 16 | 9 - 23 mg/dL | [facility] | | | | | [facility] | | | | | | [facility] | | | | | | [facility] - | | | | | | LABORATORY | | + + + + + + | Creatinine | 0.86 | 0.55 - 1.02 | [facility] | [...] mL/min/1.73m2 | [facility] | | | [facility] | RATE,ESTIMATED | | MEDICAL | | | | mL/min/1.85u2Vzyz than | | CENTER - | | [...] (L) | 3.2 - 4.8 g/dL | [facility] | | | | | | [facility] [...] + + + + | Total | 4.9 (L) | 5.7 - 8.2 g/dL | [facility] | | | Protein | | | [facility] | | | | | | [facility] | | | | | | [facility] - | | | | | | LABORATORY | | + + + + + + | AST | 19 | 0 - 34 U/L | [facility] [...] + + + + | Alkaline | 77 | 46 - 116 U/L | [facility] [...] + + + + | Albumin/Sarika | 1.7 | 0.8 - 1.9 | [facility] | | | bulin Ratio | | | [facility] | | | | | | [facility] | | | | | | [facility] - | | | | | | LABORATORY | | + + + + + + | BUN/Creatin | 18.6 | | [facility] | | | ine Ratio | | [...] [facility] | [place] | [phone] | | [facility] | | [id number] | | | - LABORATORY | | | | + + + + + CBC with Differential (05/31/2019 2:07 PM PDT) + + + + + + | Component | Value | Ref Range | Performed | Pathologist | | | | | At | Signature | + + + + + + | WBC | 9.1 | 4.0 - 11.0 K/uL | [facility] | | | | | [facility] | | | | | | [facility] | | | | | | [facility] - | | | | | | LABORATORY | | + + + + + + | RBC | 2.77 (L) | 3.70 - 5.20 | [facility] | | | | | M/uL | [facility] | | | | | | [facility] | | | | | | C[facility] - | | | | | | LABORATORY | | + + + + + + | Hemoglobin | 8.3 (L) | 11.5 - 16.0 | [facility] | | | | | g/dL | [facility] | | | | | | [facility] | | | | | | CENTER - | | | | | | LABORATORY | | + + + + + + | Hematocrit | 26.8 (L) | 34.0 - 47.0 % | [facility] | | | | | | [facility] | | | | | | [facility] | | | | | | CENTER - | | | | | | LABORATORY | | + + + + + + | MCV | 96.8 | 83.0 - 101.0 fL | [facility] [...] + + + + | MCHC | 31.0 (L) | 32.0 - 36.0 | [facility] | | | | | g/dL | [facility] | | | | | | [facility] | [facility] - | | | | | | LABORATORY | | + + + + + + | RDW-CV | 14.5 | <15.0 % | [facility] | | | | | | [facility] | [facility] | [facility] | | | [facility] - | | | | | | LABORATORY | | + + + + + + | RDW-SD | 51.0 (H) | 35.1 - 46.3 fL | [facility] | | | | | | [facility] | | [facility] | [facility] - | | | | | | LABORATORY | | + + + + + + | Platelet | 158 | 140 - 440 K/uL | [facility] | | | Count | | | [facility] | [facility] | [facility] | | | | [facility] - | | | | | | LABORATORY | | + + + + + + | MPV | 9.7 | 6.5 - 12.4 fL | [facility] | | | | | | [facility] | [facility] | | | [facility] - | | | | | | LABORATORY | | + + + + + + | % | 88.8 (H) | 45.0 - 82.0 % | [facility] | | | Neutrophils | | | [facility] | | | | | | [facility] | | | | | | [facility] - | | | | | | LABORATORY | | + + + + + + | % | 5.6 (L) | 20.0 - 45.0 % | [...] + + + + | Absolute | 0.51 (L) | 0.60 - 3.20 | [facility] | | | Lymphocytes | | K/uL | [facility] | | | | | | [facility] | | | | | | [facility] - | | | | | | LABORATORY | | + + + + + + | Absolute | 0.40 | 0.00 - 1.00 | [facility] | [...] + | [facility] | [address] | [place] | [phone] | | [facility] | | [id number] | | | - LABORATORY | | | | + + + + + B Type Natriuretic Peptide (05/31/2019 2:07 PM PDT) + +---------+ + + + | Component | Value | Ref Range | Performed | Pathologist | | | | | At | Signature | + +---------+ + + + | BNP | 478 (H) | <100 pg/mL | [facility] | | | | | [...] + | [facility] | [address] | [place] | [phone] | | [facility] | | [id number] | | | - LABORATORY | | | | + + + + + XR Chest AP Portable (05/31/2019 2:01 PM PDT) + + | Specimen | + + | | + + + + + | Narrative | Performed At | + + + | XR CHEST AP PORTABLE 05/31/2019 1:46 PM HISTORY: FALL. | [facility] | | COMPARISON: None. Findings: Heart size is at the upper limits of | | | normal. There is atherosclerosis of the aorta. A stent is noted over | | | the lower mediastinum. Central pulmonary vasculature is normal. Mild | | | scarring is in the right lung base. The left lung is clear. | | | Degenerative changes are present of the shoulders. There is moderate | | | spondylosis. IMPRESSION - No acute findings. Dictated and | | | Signed by: Patrick Rodriguez MD Electronically signed: 05/31/2019 3:46 | | | PM | | + + + + + | Procedure Note | + + | Kobe, Rad Results In - 05/31/2019 3:49 PM PDT XR CHEST AP PORTABLE 05/31/2019 1:46 PM | | | | HISTORY: FALL. | | | | COMPARISON: None. | | | | Findings: | | Heart size is at the upper limits of normal. There is atherosclerosis of the | | aorta. A stent is noted over the lower mediastinum. Central pulmonary | | vasculature is normal. Mild scarring is in the right lung base. The left lung is | | clear. Degenerative changes are present of the shoulders. There is moderate | | spondylosis. | | | | IMPRESSION - | | No acute findings. | | | | Dictated and Signed by: Patrick Rodriguez MD | | Electronically signed: 05/31/2019 3:46 PM | + + + +---------+ + + | Performing | Address | City/State/Zipcode | Phone Number | | Organization | | | | + +---------+ + + | [facility] | | | | + +---------+ + + XR Pelvis 1 or 2 Vw (05/31/2019 2:00 PM PDT) + + | Specimen | + + | | + + + + + | Narrative | Performed At | + + + | XR PELVIS 1 OR 2 VW 05/31/2019 1:45 PM HISTORY: FALL. | [facility] | | COMPARISON: None. FINDINGS: There is no definite evidence for | | | acute fracture or dislocation. There is limited evaluation of the | | | left hip due to overlapping soft tissue structures. Mild degenerative | | | changes are noted of the hips. Mild right curvature of the lumbar | | | spine is present along with moderate spondylosis. Bone mineralization | | | is decreased. Pelvic phleboliths are noted. IMPRESSION - No | | | definite acute osseous findings. Limited evaluation of left hip | | | due to overlapping soft tissue structures. If clinically indicated, | | | additional views can be considered. Dictated and Signed by: Patrick | | | MD Michael Electronically signed: 05/31/2019 3:44 PM | | + + + + + | Procedure Note | + + | Kobe, Rad Results In - 05/31/2019 3:48 PM PDT XR PELVIS 1 OR 2 VW 05/31/2019 1:45 PM | | | | HISTORY: FALL. | | | | COMPARISON: None. | | | | FINDINGS: | | There is no definite evidence for acute fracture or dislocation. There is | | limited evaluation of the left hip due to overlapping soft tissue structures. | | Mild degenerative changes are noted of the hips. Mild right curvature of the | | lumbar spine is present along with moderate spondylosis. Bone mineralization is | | decreased. Pelvic phleboliths are noted. | | | | IMPRESSION - | | No definite acute osseous findings. | | | | Limited evaluation of left hip due to overlapping soft tissue structures. If | | clinically indicated, additional views can be considered. | | | | Dictated and Signed by: Patrick Rodriguez MD | | Electronically signed: 05/31/2019 3:44 PM | + + + +---------+ + + | Performing | Address | City/State/Zipcode | Phone Number | | Organization | | | | + +---------+ + + | [facility] | | | | + +---------+ + + XR Foot Right 3 + Vw (05/31/2019 1:50 PM PDT) + + | Specimen | + + | | + + + + + | Narrative | Performed At | + + + | XR FOOT RIGHT 3 + VW 05/31/2019 1:40 PM HISTORY: FALL. | [facility] | | COMPARISON: None. FINDINGS: There are no acute osseous findings. | | | Mild degenerative changes are present of the tarsometatarsal joints | | | as well as of the interphalangeal joints. Moderate degenerative | | | changes are noted of the second MTP joint. There are a moderate spur | | | of the posterior calcaneus and a tiny spur of the inferior calcaneus. | | | Some soft tissue calcium is seen along the course of the plantar | | | fascia in the midfoot. IMPRESSION - No acute osseous findings. | | | Degenerative changes. Dictated and Signed by: Patrick Rodriguez MD | | | Electronically signed: 05/31/2019 3:41 PM | | + + + + + | Procedure Note | + + | Kobe, Rad Results In - 05/31/2019 3:44 PM PDT XR FOOT RIGHT 3 + VW 05/31/2019 1:40 PM | | | | HISTORY: FALL. | | | | COMPARISON: None. | | | | FINDINGS: | | There are no acute osseous findings. Mild degenerative changes are present of | | the tarsometatarsal joints as well as of the interphalangeal joints. Moderate | | degenerative changes are noted of the second MTP joint. There are a moderate | | spur of the posterior calcaneus and a tiny spur of the inferior calcaneus. Some | | soft tissue calcium is seen along the course of the plantar fascia in the | | midfoot. | | | | IMPRESSION - | | No acute osseous findings. | | | | Degenerative changes. | | | | Dictated and Signed by: Patrick Rodriguez MD | | Electronically signed: 05/31/2019 3:41 PM | + + + +---------+ + + | Performing | Address | City/State/Zipcode | Phone Number | | Organization | | | | + +---------+ + + | [facility] | | | | + +---------+ + + XR Foot Left 3 + Vw (05/31/2019 1:49 PM PDT) + + | Specimen | + + | | + + + + + | Narrative | Performed At | + + + | XR FOOT LEFT 3 + VW 05/31/2019 1:29 PM HISTORY: FALL. | [facility] | | COMPARISON: None. FINDINGS: There appears be a nondisplaced | | | fracture involving the base of the second proximal phalanx extending | | | to the MTP joint. Advanced degenerative changes are noted of the | | | tarsometatarsal joints. There are mild degenerative changes of the | | | interphalangeal joints. Mild spurring is present of the calcaneus. | | | Mild pes planus is present. Bone mineralization is decreased. There | | | is moderate atherosclerosis. IMPRESSION - Possible nondisplaced | | | fracture involving base of second proximal phalanx extending to MTP | | | joint. Dictated and Signed by: Patrick Rodriguez MD Electronically | | | signed: 05/31/2019 3:42 PM | | + + + + + | Procedure Note | + + | Kobe, Rad Results In - 05/31/2019 3:45 PM PDT XR FOOT LEFT 3 + VW 05/31/2019 1:29 PM | | | | HISTORY: FALL. | | | | COMPARISON: None. | | | | FINDINGS: | | There appears be a nondisplaced fracture involving the base of the second | | proximal phalanx extending to the MTP joint. Advanced degenerative changes are | | noted of the tarsometatarsal joints. There are mild degenerative changes of the | | interphalangeal joints. Mild spurring is present of the calcaneus. Mild pes | | planus is present. Bone mineralization is decreased. There is moderate | | atherosclerosis. | | | | IMPRESSION - | | Possible nondisplaced fracture involving base of second proximal phalanx | | extending to MTP joint. | | | | Dictated and Signed by: Patrick Rodriguez MD | | Electronically signed: 05/31/2019 3:42 PM | + + + +---------+ + + | Performing | Address | City/State/Zipcode | Phone Number | | Organization | | | | + +---------+ + + | [facility] | | | | + +---------+ + + ECG 12 lead (05/31/2019 1:48 PM PDT) + + + + + + | Component | Value | Ref Range | Performed | Pathologist | | | | | At | Signature | + + + + + + | VENTRICULAR | 87 | BPM | [facility] | | | RATE EKG | | | | | + + + + + + | ATRIAL RATE | 87 | BPM | [facility] | | + + + + + + | P-R | 142 | ms | [facility] | | | INTERVAL | | | | | + + + + + + | QRS | 86 | ms | [facility] | | | DURATION | | | | | + + + + + + | Q-T | 360 | ms | [facility] | | | INTERVAL | | | | | + + + + + + | Q-T | 433 | ms | [facility] | | | INTERVAL | | | | | | (CORRECTED) | | | | | + + + + + + | P WAVE AXIS | 56 | degrees | [facility] | | + + + + + + | QRS AXIS | 52 | degrees | [facility] | | + + + + + + | T AXIS | 71 | degrees | [facility] | | + + + + + + | INTERPRETAT | Normal sinus rhythmSmall | | [facility] | | | ION TEXT | Q waves in leads | | | | | | V4-6:cannot rule out | | | | | | lateral AR age | | | | | | indeterminantCannot rule | | | | | | out Inferior infarct , | | | | | | age undetermined1 mm ST | | | | | | elevation in leads | | | | | | V4-6:consider | | | | | | ischemia/infarctionNo | | | | | | previous ECGs | | | | | | availableConfirmed by | | | | | | LEONIDAS CALVO MD ([id number]) | | | | | | on 06/01/2019 5:26:47 AM | | | | + + [...] | | | + +---------+ + + IMAGING REPORT - EXTERNAL SCAN (03/31/2019 12:00 AM PDT) + + + | Narrative | Performed At | + + + | Ordered by an | | | unspecified provider. | | + + + ECHO-EXTERNAL SCAN (02/18/2019 12:00 AM PDT) + + + | Narrative | Performed At | + + + | Ordered by an | | | unspecified provider. | | + + + ELECTRIC MOTOR FITTER REPORT - EXTERNAL SCAN (02/16/2019 12:00 AM PDT) + + + | Narrative | Performed At | + + + | Ordered by an | | | unspecified provider. | | + + + documented in this encounter Visit Diagnoses + + | Diagnosis | + + | Fall, initial encounter - Primary | + + | Elevated troponin I level Other abnormal blood chemistry | + + | Closed nondisplaced fracture of distal phalanx of lesser toe of left foot, initial | | encounter | + + | Weakness Other malaise and fatigue | + + | Anemia, unspecified type | + + | Centrilobular emphysema (HCC) | + + | Acute on chronic heart failure, unspecified heart failure type (HCC) | + + | Type 2 myocardial infarction (HCC) | + + | S/p TAVR (transcatheter aortic valve replacement), bioprosthetic | + + | Esophageal dysphagia Dysphagia, pharyngoesophageal phase | + + | Diverticulitis Diverticulitis of colon (without mention of hemorrhage) | + + | Acute metabolic encephalopathy | + + | Acute on chronic diastolic heart failure (HCC) Acute on chronic diastolic heart | | failure | + + | Anemia, blood loss Iron deficiency anemia secondary to blood loss (chronic) | + + | Closed nondisplaced fracture of proximal phalanx of lesser toe of left foot Closed | | fracture of one or more phalanges of foot | + + | Coronary artery disease involving [place] coronary artery of [place] heart without | | angina pectoris | + + | Generalized anxiety disorder | + + | GERD (gastroesophageal reflux disease) Esophageal reflux | + + | Hypertension Unspecified essential hypertension | + + | 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) Long-term (current) | | use of anticoagulants | + + | Pulmonary hypertension, 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 | + + | Cerebral atherosclerosis | + + | COPD (chronic obstructive pulmonary disease) (HCC) Chronic airway obstruction, not | | elsewhere classified | + + | Moderate protein-calorie malnutrition (HCC) Malnutrition of moderate degree | + + documented in this encounter Administered Medications + +--------+ +--------+------+------+ | Medication Order | MAR | Action | Dose | Rate | Site | | | Action | Date | | | | + +--------+ +--------+------+------+ | acetaminophen (TYLENOL) tablet | Given | 06/04/20 | 650 mg | | | | 650 mg 650 mg, Oral, EVERY 4 | | 19 8:24 | | | | | HOURS PRN, Pain, or fever >= 38.6 | | AM PDT | | | | | C (101.5 F), Starting Mon | | | | | | | 05/31/19 at 1927 | | | | | | + +--------+ +--------+------+------+ + +---+ | | | + +---+ | albuterol 2.5 mg/3 mL nebulizer | | | solution 2.5 mg 2.5 mg, | | | Nebulization, RT EVERY 2 HOURS | | | PRN, Shortness of Breath, | | | Starting 06/02/19 at 1322 | | + +---+ | | | + +---+ + +-------+ +-------+---+---+ | albuterol-ipratropium 2.5-0.5 | Given | 06/01/20 | 3 mLs | | | | mg/3 mL nebulizer solution 3 mL | | 19 4:10 | | | | | 3 mL, Nebulization, RT EVERY 6 | | PM PDT | | | | | HOURS PRN, Shortness of Breath, | | | | | | | Starting 05/31/19 at 1927 | | | | | | + +-------+ +-------+---+---+ +-------+ +-------+---+---+ | Given | 06/01/20 | 3 mLs | | | | | 19 11:57 | | | | | | AM PDT | | | | +-------+ +-------+---+---+ | Given | 05/31/20 | 3 mLs | | | | | 19 10:38 | | | | | | PM PDT | | | | +-------+ +-------+---+---+ +---+---+ | | | +---+---+ + +-------+ +-------+---+---+ | albuterol-ipratropium 2.5-0.5 | Given | 06/12/20 | 3 mLs | | | | mg/3 mL nebulizer solution 3 mL | | 19 9:00 | | | | | 3 mL, Nebulization, RT Q6H, First | | AM PDT | | | | | dose (after last modification) | | | | | | | on 06/02/19 at 1500 | | | | | | + +-------+ +-------+---+---+ +-------+ +-------+---+---+ | Given | 06/12/20 | 3 mLs | | | | | 19 3:24 | | | | | | AM PDT | | | | +-------+ +-------+---+---+ | Given | 06/11/20 | 3 mLs | | | | | 19 8:14 | | | | | | PM PDT | | | | +-------+ +-------+---+---+ +---+---+ | | | +---+---+ + +-------+ +---------+---+---+ | ALPRAZolam (XANAX) tablet 0.25 | Given | 06/02/20 | 0.25 mg | | | | mg 0.25 mg, Oral, NIGHTLY PRN, | | 19 11:59 | | | | | Anxiety, Starting 05/31/19 at | | AM PDT | | | | | 1927 | | | | | | + +-------+ +---------+---+---+ +---+---+ | | | +---+---+ + +-------+ +------+---+---------+ | alteplase (CATHFLO ACTIVASE) | Given | 06/06/20 | 2 mg | | Central | | injection 2 mg 2 mg, | | 19 5:31 | | | | | Intracatheter, PRN, maintain PICC | | PM PDT | | | | | line patency, Starting Sun | | | | | | | 06/06/19 at 1611 | | | | | | + +-------+ +------+---+---------+ +-------+ +------+---+---------+ | Given | 06/06/20 | 2 mg | | Central | | | 19 5:30 | | | | | | PM PDT | | | | +-------+ +------+---+---------+ + +---+ | | | + +---+ | amoxicillin-clavulanate | | | (AUGMENTIN) 875-125 mg per tablet | | | 1 tablet 1 tablet, Oral, 2 | | | TIMES DAILY, First dose on Sat | | | 06/12/19 at 1415, Indications: | | | Diverticulitis of the | | | Gastrointestinal Tract | | + +---+ | | | + +---+ + +-------+ +-------+---+---+ | aspirin chewable tablet 81 mg | Given | 06/10/20 | 81 mg | | | | 81 mg, Oral, DAILY, First dose on | | 19 8:17 | | | | | 06/01/19 at 0900 | | AM PDT | | | | + +-------+ +-------+---+---+ +-------+ +-------+---+---+ | Given | 06/09/20 | 81 mg | | | | | 19 9:04 | | | | | | AM PDT | | | | +-------+ +-------+---+---+ | Given | 06/08/20 | 81 mg | | | | | 19 8:59 | | | | | | AM PDT | | | | +-------+ +-------+---+---+ +---+---+ | | | +---+---+ + +-------+ +-------+---+---+ | aspirin chewable tablet 81 mg | Given | 06/12/20 | 81 mg | | | | 81 mg, Oral, DAILY, First dose | | 19 9:08 | | | | | (after last modification) on Sat | | AM PDT | | | | | 06/12/19 at 0900 | | | | | | + +-------+ +-------+---+---+ +---+---+ | | | +---+---+ + +-------+ +-------+---+---+ | atorvaSTATin (LIPITOR) tablet | Given | 06/11/20 | 20 mg | | | | 20 mg 20 mg, Oral, NIGHTLY, | | 19 9:00 | | | | | First dose on Fri05/31/19 at 2100 | | PM PDT | | | | + +-------+ +-------+---+---+ +-------+ +-------+---+---+ | Given | 06/10/20 | 20 mg | | | | | 19 8:09 | | | | | | PM PDT | | | | +-------+ +-------+---+---+ | Given | 06/09/20 | 20 mg | | | | | 19 9:47 | | | | | | PM PDT | | | | +-------+ +-------+---+---+ +---+---+ | | | +---+---+ + +-------+ +-------+---+---+ | bisacodyl (DULCOLAX) | Given | 06/10/20 | 10 mg | | | | suppository 10 mg 10 mg, Rectal, | | 19 6:51 | | | | | ONCE, [facility] 06/10/19 at 1900, For 1 | | PM PDT | | | | | dose | | | | | | + +-------+ +-------+---+---+ +---+---+ | | | +---+---+ + +-------+ +--------+---+---+ | brimonidine (ALPHAGAN) 0.2% | Given | 06/12/20 | 1 drop | | | | ophthalmic solution 1 drop 1 | | 19 9:08 | | | | | drop, Both Eyes, 2 TIMES DAILY, | | AM PDT | | | | | First dose on Zofia 06/03/19 at 2100 | | | | | | + +-------+ +--------+---+---+ +-------+ +--------+---+---+ | Given | 06/11/20 | 1 drop | | | | | 19 9:00 | | | | | | PM PDT | | | | +-------+ +--------+---+---+ | Given | 06/11/20 | 1 drop | | | | | 19 9:40 | | | | | | AM PDT | | | | +-------+ +--------+---+---+ +---+---+ | | | +---+---+ + +-------+ +--------+---+---+ | budesonide (PULMICORT) | Given | 06/12/20 | 0.5 mg | | | | nebulizer solution 0.5 mg 0.5 | | 19 9:00 | | | | | mg, Nebulization, RT BID, First | | AM PDT | | | | | dose on Fri06/01/19 at 2100, RT | | | | | | | will administer. Shake well. | | | | | | | Protect from light. Rinse mouth | | | | | | | after use., | | | | | | + +-------+ +--------+---+---+ +-------+ +--------+---+---+ | Given | 06/11/20 | 0.5 mg | | | | | 19 8:14 | | | | | | PM PDT | | | | +-------+ +--------+---+---+ | Given | 06/11/20 | 0.5 mg | | | | | 19 9:56 | | | | | | AM PDT | | | | +-------+ +--------+---+---+ +---+---+ | | | +---+---+ + +-------+ +-------+---+---+ | busPIRone (BUSPAR) tablet 10 mg | Given | 06/03/20 | 10 mg | | | | 10 mg, Oral, 3 TIMES DAILY, | | 19 9:04 | | | | | First dose on 05/31/19 at 2100 | | AM PDT | | | | + +-------+ +-------+---+---+ +-------+ +-------+---+---+ | Given | 06/02/20 | 10 mg | | | | | 19 9:39 | | | | | | PM PDT | | | | +-------+ +-------+---+---+ | Given | 06/02/20 | 10 mg | | | | | 19 2:56 | | | | | | PM PDT | | | | +-------+ +-------+---+---+ +---+---+ | | | +---+---+ + +-------+ +-------+---+---+ | busPIRone (BUSPAR) tablet 10 mg | Given | 06/11/20 | 10 mg | | | | 10 mg, Oral, NIGHTLY, First | | 19 9:00 | | | | | dose (after last modification) on | | PM PDT | | | | | Zofia 06/03/19 at 2100 | | | | | | + +-------+ +-------+---+---+ +-------+ +-------+---+---+ | Given | 06/10/20 | 10 mg | | | | | 19 8:09 | | | | | | PM PDT | | | | +-------+ +-------+---+---+ | Given | 06/09/20 | 10 mg | | | | | 19 9:47 | | | | | | PM PDT | | | | +-------+ +-------+---+---+ +---+---+ | | | +---+---+ + +-------+ + +---+---+ | carvedilol (COREG) tablet 3.125 | Given | 06/05/20 | 3.125 mg | | | | mg 3.125 mg, Oral, 2 TIMES | | 19 5:02 | | | | | DAILY WITH BREAKFAST & DINNER, | | PM PDT | | | | | First dose on Fri05/31/19 at 1945 | | | | | | + +-------+ + +---+---+ +-------+ + +---+---+ | Given | 06/05/20 | 3.125 mg | | | | | 19 10:13 | | | | | | AM PDT | | | | +-------+ + +---+---+ | Given | 06/04/20 | 3.125 mg | | | | | 19 5:20 | | | | | | PM PDT | | | | +-------+ + +---+---+ +---+---+ | | | +---+---+ + +-------+ +---------+---+---+ | carvedilol (COREG) tablet 6.25 | Given | 06/12/20 | 6.25 mg | | | | mg 6.25 mg, Oral, 2 TIMES DAILY | | 19 9:07 | | | | | WITH BREAKFAST & DINNER, First | | AM PDT | | | | | dose (after last modification) on | | | | | | | 06/06/19 at 0800 | | | | | | + +-------+ +---------+---+---+ +-------+ +---------+---+---+ | Given | 06/11/20 | 6.25 mg | | | | | 19 5:34 | | | | | | PM PDT | | | | +-------+ +---------+---+---+ | Given | 06/10/20 | 6.25 mg | | | | | 19 4:47 | | | | | | PM PDT | | | | +-------+ +---------+---+---+ +---+---+ | | | +---+---+ + +-------+ +-------+---+---+ | cetirizine (zyrTEC) tablet 10 | Given | 06/12/20 | 10 mg | | | | mg 10 mg, Oral, DAILY, First | | 19 9:07 | | | | | dose (after last modification) on | | AM PDT | | | | | 06/01/19 at 0900 | | | | | | + +-------+ +-------+---+---+ +-------+ +-------+---+---+ | Given | 06/11/20 | 10 mg | | | | | 19 9:16 | | | | | | AM PDT | | | | +-------+ +-------+---+---+ | Given | 06/10/20 | 10 mg | | | | | 19 8:17 | | | | | | AM PDT | | | | +-------+ +-------+---+---+ + +---+ | | | + +---+ | dextrose 10% (D10W) infusion | | | at 50 mL/hr, Intravenous, | | | CONTINUOUS PRN, hypoglycemia, | | | Starting Fri05/31/19 at 2003, | | | Start infusion if unable to | | | maintain blood glucose greater | | | than 70 mg/dL after two rounds of | | | hypoglycemia treatment. Recheck | | | blood glucose 30 minutes after | | | starting D10W then at least | | | hourly and PRN until it is | | | discontinued. Call provider to | | | discuss parameters for D10W | | | discontinuation., | | + +---+ | | | + +---+ | dextrose 50% injection 12.5-25 | | | g 12.5-25 g, Intravenous, PRN, | | | Low Blood Sugar, Starting Mon | | | 05/31/19 at 2003, For blood | | | glucose 50-69 mg/dl - give 12.5 g | | | For blood glucose less than 50 | | | mg/dl - give 25 g, | | + +---+ | | | + +---+ + +-------+ +-------+---+---+ | dicyclomine (BENTYL) capsule 10 | Given | 06/08/20 | 10 mg | | | | mg 10 mg, Oral, 4 TIMES DAILY | | 19 4:44 | | | | | BEFORE MEALS & NIGHTLY, First | | PM PDT | | | | | dose on 05/31/19 at 2100 | | | | | | + +-------+ +-------+---+---+ +-------+ +-------+---+---+ | Given | 06/08/20 | 10 mg | | | | | 19 11:27 | | | | | | AM PDT | | | | +-------+ +-------+---+---+ | Given | 06/08/20 | 10 mg | | | | | 19 6:40 | | | | | | AM PDT | | | | +-------+ +-------+---+---+ +---+---+ | | | +---+---+ + +-------+ +-------+---+---+ | dicyclomine (BENTYL) capsule 10 | Given | 06/12/20 | 10 mg | | | | mg 10 mg, Oral, DAILY, First | | 19 9:08 | | | | | dose (after last modification) on | | AM PDT | | | | | 06/09/19 at 0900 | | | | | | + +-------+ +-------+---+---+ +-------+ +-------+---+---+ | Given | 06/11/20 | 10 mg | | | | | 19 9:16 | | | | | | AM PDT | | | | +-------+ +-------+---+---+ | Given | 06/10/20 | 10 mg | | | | | 19 8:17 | | | | | | AM PDT | | | | +-------+ +-------+---+---+ +---+---+ | | | +---+---+ + +-------+ +--------+---+---+ | docusate sodium (COLACE) | Given | 06/12/20 | 200 mg | | | | capsule 200 mg 200 mg, Oral, | | 19 9:08 | | | | | DAILY, First dose on Fri05/31/19 | | AM PDT | | | | | at 1945 | | | | | | + +-------+ +--------+---+---+ +-------+ +--------+---+---+ | Given | 06/10/20 | 200 mg | | | | | 19 8:17 | | | | | | AM PDT | | | | +-------+ +--------+---+---+ | Given | 06/08/20 | 200 mg | | | | | 19 8:59 | | | | | | AM PDT | | | | +-------+ +--------+---+---+ +---+---+ | | | +---+---+ + +-------+ +--------+---+---+ | dorzolamide (TRUSOPT) 2% | Given | 06/12/20 | 1 drop | | | | ophthalmic solution 1 drop 1 | | 19 9:08 | | | | | drop, Both Eyes, 2 TIMES DAILY, | | AM PDT | | | | | First dose on Zofia 06/03/19 at 2100 | | | | | | + +-------+ +--------+---+---+ +-------+ +--------+---+---+ | Given | 06/11/20 | 1 drop | | | | | 19 9:00 | | | | | | PM PDT | | | | +-------+ +--------+---+---+ | Given | 06/11/20 | 1 drop | | | | | 19 9:40 | | | | | | AM PDT | | | | +-------+ +--------+---+---+ +---+---+ | | | +---+---+ + +-------+ +--------+---+---+ | ferrous sulfate tablet 325 mg | Given | 06/12/20 | 325 mg | | | | 325 mg, Oral, DAILY WITH | | 19 9:08 | | | | | BREAKFAST, First dose on Fri | | AM PDT | | | | | 06/01/19 at 0800 | | | | | | + +-------+ +--------+---+---+ +-------+ +--------+---+---+ | Given | 06/10/20 | 325 mg | | | | | 19 8:17 | | | | | | AM PDT | | | | +-------+ +--------+---+---+ | Given | 06/09/20 | 325 mg | | | | | 19 9:03 | | | | | | AM PDT | | | | +-------+ +--------+---+---+ +---+---+ | | | +---+---+ + +-------+ +---------+---+ + | fluticasone (FLONASE) 50 | Given | 06/12/20 | 1 spray | | Nare-Bot | | mcg/nasal spray 1 spray 1 spray, | | 19 9:09 | | | h | | Nasal, DAILY, First dose on Mon | | AM PDT | | | | | 05/31/19 at 1945, Shake gently., | | | | | | + +-------+ +---------+---+ + +-------+ +---------+---+ + | Given | 06/11/20 | 1 spray | | Nare-Bot | | | 19 9:40 | | | h | | | AM PDT | | | | +-------+ +---------+---+ + | Given | 06/10/20 | 1 spray | | Nare-Bot | | | 19 10:34 | | | h | | | AM PDT | | | | +-------+ +---------+---+ + +---+---+ | | | +---+---+ + +-------+ + +---+---+ | fluticasone (FLONASE) 50 | Given | 06/11/20 | 2 sprays | | | | mcg/nasal spray 2 spray 2 spray, | | 19 9:00 | | | | | Each Nare, 2 TIMES DAILY PRN, | | PM PDT | | | | | Allergies, Starting 06/09/19 at | | | | | | | 2219, Shake gently., | | | | | | + +-------+ + +---+---+ +-------+ + +---+---+ | Given | 06/10/20 | 2 sprays | | | | | 19 8:13 | | | | | | PM PDT | | | | +-------+ + +---+---+ | Given | 06/10/20 | 2 sprays | | | | | 19 6:43 | | | | | | AM PDT | | | | +-------+ + +---+---+ +---+---+ | | | +---+---+ + +-------+ +-------+---+---+ | furosemide (LASIX) injection 20 | Given | 05/31/20 | 20 mg | | | | mg 20 mg, Intravenous, ONCE, | | 19 6:17 | | | | | 05/31/19 at 1805, For 1 dose | | PM PDT | | | | + +-------+ +-------+---+---+ +---+---+ | | | +---+---+ + +-------+ +-------+---+---+ | furosemide (LASIX) tablet 20 mg | Given | 06/01/20 | 20 mg | | | | 20 mg, Oral, 2 TIMES DAILY, | | 19 8:15 | | | | | First dose (after last | | PM PDT | | | | | modification) on [facility] 06/01/19 at | | | | | | | 0900 | | | | | | + +-------+ +-------+---+---+ +-------+ +-------+---+---+ | Given | 06/01/20 | 20 mg | | | | | 19 8:45 | | | | | | AM PDT | | | | +-------+ +-------+---+---+ +---+---+ | | | +---+---+ + +-------+ +-------+---+---+ | furosemide (LASIX) tablet 20 mg | Given | 06/11/20 | 20 mg | | | | 20 mg, Oral, DAILY, First dose | | 19 10:29 | | | | | (after last modification) on [facility] | | AM PDT | | | | | 06/10/19 at 0900 | | | | | | + +-------+ +-------+---+---+ +-------+ +-------+---+---+ | Given | 06/10/20 | 20 mg | | | | | 19 8:16 | | | | | | AM PDT | | | | +-------+ +-------+---+---+ +---+---+ | | | +---+---+ + +-------+ +-------+---+---+ | furosemide (LASIX) tablet 20 mg | Given | 06/12/20 | 20 mg | | | | 20 mg, Oral, DAILY, First dose | | 19 9:07 | | | | | (after last modification) on Sat | | AM PDT | | | | | 06/12/19 at 0900, Before giving | | | | | | | Friday (Jun 12) dose contact | | | | | | | Dr Cochran to see if dose needs to | | | | | | | be adjusted, | | | | | | + +-------+ +-------+---+---+ +---+---+ | | | +---+---+ + +-------+ +-------+---+---+ | furosemide (LASIX) tablet 40 mg | Given | 06/03/20 | 40 mg | | | | 40 mg, Oral, 2 TIMES DAILY, | | 19 9:03 | | | | | First dose (after last | | AM PDT | | | | | modification) on Fri06/02/19 at | | | | | | | 0900 | | | | | | + +-------+ +-------+---+---+ +-------+ +-------+---+---+ | Given | 06/02/20 | 40 mg | | | | | 19 9:39 | | | | | | PM PDT | | | | +-------+ +-------+---+---+ | Given | 06/02/20 | 40 mg | | | | | 19 8:22 | | | | | | AM PDT | | | | +-------+ +-------+---+---+ +---+---+ | | | +---+---+ + +-------+ +-------+---+---+ | furosemide (LASIX) tablet 40 mg | Given | 06/09/20 | 40 mg | | | | 40 mg, Oral, DAILY, First dose | | 19 9:02 | | | | | (after last modification) on Sat | | AM PDT | | | | | 06/05/19 at 0900 | | | | | | + +-------+ +-------+---+---+ +-------+ +-------+---+---+ | Given | 06/08/20 | 40 mg | | | | | 19 8:59 | | | | | | AM PDT | | | | +-------+ +-------+---+---+ | Given | 06/07/20 | 40 mg | | | | | 19 10:28 | | | | | | AM PDT | | | | +-------+ +-------+---+---+ +---+---+ | | | +---+---+ + +-------+ +-------+---+---+ | hydrALAZINE (APRESOLINE) tablet | Given | 06/11/20 | 10 mg | | | | 10 mg 10 mg, Oral, 3 TIMES | | 19 9:16 | | | | | DAILY, First dose (after last | | AM PDT | | | | | modification) on Fri06/01/19 at | | | | | | | 0900 | | | | | | + +-------+ +-------+---+---+ +-------+ +-------+---+---+ | Given | 06/10/20 | 10 mg | | | | | 19 8:09 | | | | | | PM PDT | | | | +-------+ +-------+---+---+ | Given | 06/10/20 | 10 mg | | | | | 19 1:36 | | | | | | PM PDT | | | | +-------+ +-------+---+---+ +---+---+ | | | +---+---+ + +-------+ + +---+---+ | HYDROcodone-acetaminophen | Given | 05/31/20 | 1 tablet | | | | (NORCO) 5-325 mg per tablet 1 | | 19 3:33 | | | | | tablet 1 tablet, Oral, ONCE, Mon | | PM PDT | | | | | 05/31/19 at 1525, For 1 dose | | | | | | + +-------+ + +---+---+ +---+---+ | | | +---+---+ + +-------+ +---------+---+---+ | HYDROcodone-acetaminophen | Given | 06/12/20 | 2 | | | | (NORCO) 5-325 mg per tablet 1-2 | | 19 10:36 | tablets | | | | tablet 1-2 tablet, Oral, EVERY 4 | | AM PDT | | | | | HOURS PRN, Pain, Starting Mon | | | | | | | 05/31/19 at 1927, If ineffective | | | | | | | use [place] 10/325 if ordered. If | | | | | | | not tolerated, use Percocet then | | | | | | | Oxycodone if ordered., | | | | | | + +-------+ +---------+---+---+ +-------+ +---------+---+---+ | Given | 06/11/20 | 2 | | | | | 19 2:23 | tablets | | | | | PM PDT | | | | +-------+ +---------+---+---+ | Given | 06/11/20 | 2 | | | | | 19 9:16 | tablets | | | | | AM PDT | | | | +-------+ +---------+---+---+ +---+---+ | | | +---+---+ + +-------+ +--------+---+---+ | hydrocortisone (PF) | Given | 06/05/20 | 100 mg | | | | (solu-CORTEF) injection 100 mg | | 19 6:24 | | | | | 100 mg, Intravenous, EVERY 8 | | AM PDT | | | | | HOURS (3 times per day), First | | | | | | | dose (after last modification) on | | | | | | | 06/04/19 at 1200, Mix with 2 | | | | | | | mL sterile water to make 50 | | | | | | | mg/mL., | | | | | | + +-------+ +--------+---+---+ +-------+ +--------+---+---+ | Given | 06/04/20 | 100 mg | | | | | 19 9:54 | | | | | | PM PDT | | | | +-------+ +--------+---+---+ | Given | 06/04/20 | 100 mg | | | | | 19 11:45 | | | | | | AM PDT | | | | +-------+ +--------+---+---+ +---+---+ | | | +---+---+ + +-------+ +-------+---+---+ | hydrocortisone (PF) | Given | 06/06/20 | 50 mg | | | | (solu-CORTEF) injection 50 mg 50 | | 19 3:40 | | | | | mg, Intravenous, EVERY 8 HOURS | | PM PDT | | | | | (3 times per day), First dose | | | | | | | (after last modification) on Sat | | | | | | | 06/05/19 at 1400, Mix with 2 mL | | | | | | | sterile water to make 50 mg/mL., | | | | | | + +-------+ +-------+---+---+ +-------+ +-------+---+---+ | Given | 06/06/20 | 50 mg | | | | | 19 6:35 | | | | | | AM PDT | | | | +-------+ +-------+---+---+ | Given | 06/05/20 | 50 mg | | | | | 19 9:56 | | | | | | PM PDT | | | | +-------+ +-------+---+---+ +---+---+ | | | +---+---+ + +-------+ +-------+---+---+ | hydrocortisone (PF) | Given | 06/07/20 | 50 mg | | | | (solu-CORTEF) injection 50 mg 50 | | 19 10:42 | | | | | mg, Intravenous, EVERY 12 HOURS | | PM PDT | | | | | (2 times per day), First dose | | | | | | | (after last modification) on Mon | | | | | | | 06/07/19 at 0700, For 2 doses, Mix | | | | | | | with 2 mL sterile water to make | | | | | | | 50 mg/mL., | | | | | | + +-------+ +-------+---+---+ +-------+ +-------+---+---+ | Given | 06/07/20 | 50 mg | | | | | 19 6:45 | | | | | | AM PDT | | | | +-------+ +-------+---+---+ +---+---+ | | | +---+---+ + +-------+ +---------+---+ + | insulin lispro (humaLOG | Given | 06/11/20 | 4 Units | | Arm-Righ | | KWIKPEN) injection (pen) 0-12 | | 19 5:33 | | | t Upper | | Units 0-12 Units, Subcutaneous, | | PM PDT | | | | | 4 TIMES DAILY WITH MEALS & | | | | | | | NIGHTLY, First dose on Fri | | | | | | | 06/01/19 at 2245, CORRECTION | | | | | | | SCALE: Blood Glucose (BG) < | | | | | | | 150: None BG | | | | | | | 150-200: DAY: 2 units. NIGHT: | | | | | | | 0 units BG 201-250: DAY: 4 | | | | | | | units. NIGHT: 2 units BG | | | | | | | 251-300: DAY: 6 units. NIGHT: | | | | | | | 4 units BG 301-350: DAY: 8 | | | | | | | units. NIGHT: 6 units BG | | | | | | | 351-400: DAY: 10 units. NIGHT: 8 | | | | | | | units BG > 400 : DAY: 12 | | | | | | | units. NIGHT: 10 units | | | | | | | AND CALL PROVIDER | | | | | | | , Use DAY DOSE for doses | | | | | | | scheduled: AC, NPO, Daytime | | | | | | | [id number] Use NIGHT DOSE for | | | | | | | doses scheduled: HS, 3AM, | | | | | | | Nighttime [phone] If the BG is | | | | | | | not checked before the patient | | | | | | | starts eating, do not give | | | | | | | correction insulin. If HS insulin | | | | | | | given, check blood glucose at | | | | | | | 3AM., | | | | | | + +-------+ +---------+---+ + +-------+ +---------+---+ + | Given | 06/11/20 | 2 Units | | Arm-Righ | | | 19 12:39 | | | t Upper | | | PM PDT | | | | +-------+ +---------+---+ + | Given | 06/10/20 | 4 Units | | Arm-Righ | | | 19 4:48 | | | t Upper | | | PM PDT | | | | +-------+ +---------+---+ + +---+---+ | | | +---+---+ + +-------+ +---------+---+ + | insulin lispro (humaLOG | Given | 06/01/20 | 1 Units | | Arm-Righ | | KWIKPEN) injection (pen) 0-6 | | 19 8:19 | | | t Upper | | Units 0-6 Units, Subcutaneous, 4 | | PM PDT | | | | | TIMES DAILY WITH MEALS & | | | | | | | NIGHTLY, First dose on Mon | | | | | | | 05/31/19 at 2100, CORRECTION | | | | | | | SCALE: Blood Glucose (BG) < | | | | | | | 150: None BG | | | | | | | 150-200: DAY: 1 units. NIGHT: 0 | | | | | | | units BG 201-250: DAY: 2 units. | | | | | | | NIGHT: 1 units BG 251-300: | | | | | | | DAY: 3 units. NIGHT: 2 units | | | | | | | BG 301-350: DAY: 4 units. NIGHT: | | | | | | | 3 units BG 351-400: DAY: 5 | | | | | | | units. NIGHT: 4 units BG > | | | | | | | 400 : DAY: 6 units. NIGHT: 5 | | | | | | | units | | | | | | | AND CALL PROVIDER Use DAY DOSE | | | | | | | for doses scheduled: AC, | | | | | | | NPO, Daytime [phone] Use NIGHT | | | | | | | DOSE for doses scheduled: | | | | | | | HS, 3AM, Nighttime [phone] If | | | | | | | the BG is not checked before the | | | | | | | patient starts eating, do not | | | | | | | give correction insulin. If HS | | | | | | | insulin given, check blood | | | | | | | glucose at 3AM., | | | | | | + +-------+ +---------+---+ + +-------+ +---------+---+ + | Given | 06/01/20 | 2 Units | | Arm-Left | | | 19 5:03 | | | Upper | | | PM PDT | | | | +-------+ +---------+---+ + +---+---+ | | | +---+---+ + +-------+ +--------+---+---+ | iohexol (OMNIPAQUE 350) 350 | Given | 06/04/20 | 85 mLs | | | | mg/mL injection 85 mL 85 mL, | | 19 2:17 | | | | | Intravenous, ONCE PRN, Other, for | | PM PDT | | | | | CT contrast study, Starting Fri | | | | | | | 06/04/19 at 1417, For 1 dose, | | | | | | | Radiology | | | | | | + +-------+ +--------+---+---+ +---+---+ | | | +---+---+ + +-------+ +---------+---+---+ | ipratropium (ATROVENT) 500 | Given | 06/02/20 | 500 mcg | | | | mcg/2.5 mL nebulizer solution 500 | | 19 9:17 | | | | | mcg 500 mcg, Nebulization, RT | | AM PDT | | | | | Q6H, First dose on Fri05/31/19 at | | | | | | | 2100 | | | | | | + +-------+ +---------+---+---+ +-------+ +---------+---+---+ | Given | 06/02/20 | 500 mcg | | | | | 19 2:17 | | | | | | AM PDT | | | | +-------+ +---------+---+---+ | Given | 06/01/20 | 500 mcg | | | | | 19 7:35 | | | | | | PM PDT | | | | +-------+ +---------+---+---+ +---+---+ | | | +---+---+ + +---------+ +---+ +---+ | lactated ringers (LR) 1,000 mL | New Bag | 06/06/20 | | 50 mL/hr | | | with potassium chloride 20 mEq | | 19 3:52 | | | | | infusion at 50 mL/hr, | | PM PDT | | | | | Intravenous, CONTINUOUS, Starting | | | | | | | 06/04/19 at 1145 | | | | | | + +---------+ +---+ +---+ + + +---+ +---+ | Rate/Dose Change | 06/05/20 | | 50 mL/hr | | | | 19 10:15 | | | | | | AM PDT | | | | + + +---+ +---+ | New Bag | 06/05/20 | | 100 | | | | 19 2:10 | | mL/hr | | | | AM PDT | | | | + + +---+ +---+ +---+---+ | | | +---+---+ + +-------+ +--------+---+---+ | latanoprost (XALATAN) 0.005% | Given | 06/11/20 | 1 drop | | | | ophthalmic solution 1 drop 1 | | 19 9:00 | | | | | drop, Both Eyes, NIGHTLY, First | | PM PDT | | | | | dose on [facility] 06/03/19 at 2100 | | | | | | + +-------+ +--------+---+---+ +-------+ +--------+---+---+ | Given | 06/10/20 | 1 drop | | | | | 19 8:10 | | | | | | PM PDT | | | | +-------+ +--------+---+---+ | Given | 06/09/20 | 1 drop | | | | | 19 9:51 | | | | | | PM PDT | | | | +-------+ +--------+---+---+ +---+---+ | | | +---+---+ + +---------+ +---------+---+ + | lidocaine (LIDODERM) 5% patch 1 | Patch | 06/10/20 | 1 patch | | Shoulder | | patch 1 patch, Transdermal, | Applied | 19 8:15 | | | -Right | | DAILY, First dose on 05/31/19 | | AM PDT | | | | | at 1945, Apply for 12 hours, then | | | | | | | remove for 12 hours., Time to | | | | | | | remove patch: 9:00 PM | | | | | | + +---------+ +---------+---+ + + + +---------+---+ + | Patch Applied | 06/09/20 | 1 patch | | Knee-Lef | | | 19 9:11 | | | t | | | AM PDT | | | | + + +---------+---+ + | Patch Applied | 06/08/20 | 1 patch | | Knee-Lef | | | 19 8:28 | | | t | | | AM PDT | | | | + + +---------+---+ + +---+---+ | | | +---+---+ + +-------+ +------+---+---+ | ondansetron (ZOFRAN) injection | Given | 06/10/20 | 4 mg | | | | 4 mg 4 mg, Intravenous, EVERY 6 | | 19 2:46 | | | | | HOURS PRN, Nausea, Vomiting, | | PM PDT | | | | | Starting 05/31/19 at 1927, | | | | | | | First line agent, | | | | | | + +-------+ +------+---+---+ +---+---+ | | | +---+---+ + +-------+ +-------+---+---+ | pantoprazole (PROTONIX) DR | Given | 06/01/20 | 40 mg | | | | tablet 40 mg 40 mg, Oral, DAILY | | 19 6:34 | | | | | BEFORE BREAKFAST, First dose on | | AM PDT | | | | | 06/01/19 at 0730, Do not cut | | | | | | | or crush., Indication: GERD | | | | | | + +-------+ +-------+---+---+ +---+---+ | | | +---+---+ + +-------+ +-------+---+---+ | pantoprazole (PROTONIX) DR | Given | 06/12/20 | 40 mg | | | | tablet 40 mg 40 mg, Oral, 2 | | 19 6:20 | | | | | TIMES DAILY BEFORE MEALS, First | | AM PDT | | | | | dose (after last modification) on | | | | | | | 06/01/19 at 2100, Do not cut | | | | | | | or crush., Indication: GERD | | | | | | + +-------+ +-------+---+---+ +-------+ +-------+---+---+ | Given | 06/11/20 | 40 mg | | | | | 19 5:34 | | | | | | PM PDT | | | | +-------+ +-------+---+---+ | Given | 06/11/20 | 40 mg | | | | | 19 6:21 | | | | | | AM PDT | | | | +-------+ +-------+---+---+ + +---+ | | | + +---+ | pharmacy consult - other | | | medications/reasons PHARMACY | | | CONSULT, Starting [facility] 06/10/19 at | | | 1524, Pharmacy to consult for | | | another reason? The Vancomycin | | | Cochran ordered for 6 am on Friday | | | needs to be started at 6 am | | + +---+ | | | + +---+ + +---------+ +---------+-------+---+ | piperacillin-tazobactam (ZOSYN) | New Bag | 06/04/20 | 3.375 g | 200 | | | 3.375 g in sodium chloride 0.9% | | 19 5:14 | | mL/hr | | | 100 mL IVPB 3.375 g, | | PM PDT | | | | | Intravenous, Administer over 0.5 | | | | | | | Hours, ONCE, Fri06/04/19 at 1430, | | | | | | | For 1 dose, Extended-Infusion | | | | | | | Zosyn Protocol: infuse bolus over | | | | | | | 30 minutes, followed in 4 hours | | | | | | | by maintenance dosing. Activate | | | | | | | system and mix before use., | | | | | | | Indications: fever | | | | | | + +---------+ +---------+-------+---+ +---+---+ | | | +---+---+ + +---------+ +---------+ +---+ | piperacillin-tazobactam (ZOSYN) | New Bag | 06/12/20 | 3.375 g | 25 mL/hr | | | 3.375 g in sodium chloride 0.9% | | 19 5:10 | | | | | 100 mL IVPB 3.375 g, | | AM PDT | | | | | Intravenous, Administer over 4 | | | | | | | Hours, EVERY 8 HOURS INTERVAL, | | | | | | | First dose on Fri06/04/19 at | | | | | | | 2130, Extended-Infusion Zosyn | | | | | | | Protocol: infuse over 4 hours | | | | | | | when maintenance dose has a | | | | | | | frequency of Q8H (or Q12H for | | | | | | | renal dose adjustment). Activate | | | | | | | system and mix before use., | | | | | | | Indications: Fever | | | | | | + +---------+ +---------+ +---+ +---------+ +---------+ +---+ | New Bag | 06/11/20 | 3.375 g | 25 mL/hr | | | | 19 9:00 | | | | | | PM PDT | | | | +---------+ +---------+ +---+ | New Bag | 06/11/20 | 3.375 g | 25 mL/hr | | | | 19 1:54 | | | | | | PM PDT | | | | +---------+ +---------+ +---+ +---+---+ | | | +---+---+ + +-------+ +------+---+---+ | polyethylene glycol (MIRALAX) | Given | 06/12/20 | 17 g | | | | powder 17 g 17 g, Oral, DAILY, | | 19 9:12 | | | | | First dose on 06/12/19 at 0900, | | AM PDT | | | | | Hold if stools loose Mix with 8 | | | | | | | oz. water., | | | | | | + +-------+ +------+---+---+ +---+---+ | | | +---+---+ + +-------+ +--------+---+---+ | potassium bicarb-citric acid | Given | 06/07/20 | 40 mEq | | | | (EFFER-K) effervescent tablet 40 | | 19 2:11 | | | | | mEq 40 mEq, Oral, ONCE, Mon | | PM PDT | | | | | 06/07/19 at 1300, For 1 dose, | | | | | | | Dissolve 10 mEq tab in 58-85 mL | | | | | | | water. Dissolve 20 mEq tab in | | | | | | | 85-115 mL water., | | | | | | + +-------+ +--------+---+---+ +---+---+ | | | +---+---+ + +-------+ +--------+---+---+ | potassium bicarb-citric acid | Given | 06/07/20 | 40 mEq | | | | (EFFER-K) effervescent tablet 40 | | 19 6:29 | | | | | mEq 40 mEq, Oral, ONCE, Mon | | PM PDT | | | | | 06/07/19 at 1800, For 1 dose, | | | | | | | Dissolve 10 mEq tab in 58-85 mL | | | | | | | water. Dissolve 20 mEq tab in | | | | | | | 85-115 mL water., | | | | | | + +-------+ +--------+---+---+ +---+---+ | | | +---+---+ + +-------+ +--------+---+---+ | potassium chloride (Klor-Con | Given | 05/31/20 | 20 mEq | | | | M20) ER tablet 20 mEq 20 mEq, | | 19 6:20 | | | | | Oral, ONCE, 05/31/19 at 1805, | | PM PDT | | | | | For 1 dose | | | | | | + +-------+ +--------+---+---+ +---+---+ | | | +---+---+ + +-------+ +--------+---+---+ | potassium chloride (Klor-Con | Given | 06/05/20 | 20 mEq | | | | M20) ER tablet 20 mEq 20 mEq, | | 19 10:12 | | | | | Oral, DAILY, First dose on [facility] | | AM PDT | | | | | 06/03/19 at 2200, For 2 doses, | | | | | | | Dose is every 2 hours for 2 | | | | | | | doses, OK to substitute liquid | | | | | | | formulation if better tolerated., | | | | | | | | | | | | | + +-------+ +--------+---+---+ +-------+ +--------+---+---+ | Given | 06/03/20 | 20 mEq | | | | | 19 10:00 | | | | | | PM PDT | | | | +-------+ +--------+---+---+ +---+---+ | | | +---+---+ + +-------+ +-------+---+---+ | predniSONE (DELTASONE) tablet | Given | 06/03/20 | 10 mg | | | | 10 mg 10 mg, Oral, DAILY, First | | 19 9:04 | | | | | dose on 06/01/19 at 0900 | | AM PDT | | | | + +-------+ +-------+---+---+ +-------+ +-------+---+---+ | Given | 06/02/20 | 10 mg | | | | | 19 8:22 | | | | | | AM PDT | | | | +-------+ +-------+---+---+ | Given | 06/01/20 | 10 mg | | | | | 19 8:43 | | | | | | AM PDT | | | | +-------+ +-------+---+---+ +---+---+ | | | +---+---+ + +-------+ +-------+---+---+ | predniSONE (DELTASONE) tablet | Given | 06/12/20 | 10 mg | | | | 10 mg 10 mg, Oral, DAILY, First | | 19 9:08 | | | | | dose on Fri06/08/19 at 0900 | | AM PDT | | | | + +-------+ +-------+---+---+ +-------+ +-------+---+---+ | Given | 06/11/20 | 10 mg | | | | | 19 9:16 | | | | | | AM PDT | | | | +-------+ +-------+---+---+ | Given | 06/10/20 | 10 mg | | | | | 19 8:16 | | | | | | AM PDT | | | | +-------+ +-------+---+---+ + +---+ | | | + +---+ | saliva substitute (BIOTENE | | | ORALBALANCE DRY MOUTH) gel GEL | | | Mouth/Throat, EVERY 30 MIN PRN, | | | Discomfort, Other, dry mouth, | | | Starting 06/05/19 at 1734 | | + +---+ | | | + +---+ + +---------+ +---+ +---+ | sodium chloride 0.45% (12 NS) | New Bag | 06/09/20 | | 75 mL/hr | | | 1,000 mL with potassium chloride | | 19 2:26 | | | | | 40 mEq infusion at 75 mL/hr, | | AM PDT | | | | | Intravenous, CONTINUOUS, Starting | | | | | | | 06/07/19 at 1800 | | | | | | + +---------+ +---+ +---+ +---------+ +---+ +---+ | New Bag | 06/08/20 | | 75 mL/hr | | | | 19 12:29 | | | | | | PM PDT | | | | +---------+ +---+ +---+ | New Bag | 06/07/20 | | 75 mL/hr | | | | 19 6:30 | | | | | | PM PDT | | | | +---------+ +---+ +---+ +---+---+ | | | +---+---+ + +---------+ +---------+-------+---+ | sodium chloride 0.9% (NS) bolus | New Bag | 05/31/20 | 500 mLs | 500 | | | 500 mL 500 mL, Intravenous, | | 19 2:08 | | mL/hr | | | Administer over 1 Hours, ONCE, | | PM PDT | | | | | 05/31/19 at 1345, For 1 dose | | | | | | + +---------+ +---------+-------+---+ +---+---+ | | | +---+---+ + +---------+ +---------+-------+---+ | sodium chloride 0.9% (NS) bolus | New Bag | 06/04/20 | 500 mLs | 250 | | | 500 mL 500 mL, Intravenous, | | 19 1:16 | | mL/hr | | | Administer over 2 Hours, ONCE, | | PM PDT | | | | | 06/04/19 at 1315, For 1 dose | | | | | | + +---------+ +---------+-------+---+ +---+---+ | | | +---+---+ + +---------+ +---+-------+---+ | sodium chloride 0.9% with KCl | New Bag | 06/07/20 | | 100 | | | 40 mEq/L (NS + KCL 40) infusion | | 19 5:58 | | mL/hr | | | at 100 mL/hr, Intravenous, | | AM PDT | | | | | CONTINUOUS, Starting 06/07/19 | | | | | | | at 0545 | | | | | | + +---------+ +---+-------+---+ +---+---+ | | | +---+---+ + +-------+ +---------+---+---+ | sodium phosphate (FLEET) enema | Given | 06/11/20 | 133 mLs | | | | 133 mL 133 mL, Rectal, ONCE, Fri | | 19 6:21 | | | | | 06/11/19 at 0630, For 1 dose | | AM PDT | | | | + +-------+ +---------+---+---+ +---+---+ | | | +---+---+ + +-------+ +--------+---+---+ | tamsulosin (FLOMAX) capsule 0.4 | Given | 06/11/20 | 0.4 mg | | | | mg 0.4 mg, Oral, NIGHTLY, First | | 19 8:59 | | | | | dose on Fri06/08/19 at 2100, Do | | PM PDT | | | | | not crush or chew capsule. If | | | | | | | unable to swallow, may open | | | | | | | capsule and sprinkle over acidic | | | | | | | soft food (applesauce, yogurt) or | | | | | | | in a small quantity of acidic | | | | | | | fruit juice (orange, grape). | | | | | | | Administer immediately (do not | | | | | | | allow granules to dissolve). Do | | | | | | | not administer via tube routes., | | | | | | + +-------+ +--------+---+---+ +-------+ +--------+---+---+ | Given | 06/10/20 | 0.4 mg | | | | | 19 8:10 | | | | | | PM PDT | | | | +-------+ +--------+---+---+ | Given | 06/09/20 | 0.4 mg | | | | | 19 9:47 | | | | | | PM PDT | | | | +-------+ +--------+---+---+ +---+---+ | | | +---+---+ + +---------+ +-----+--------+---+ | vancomycin 1 g in sodium | New Bag | 06/11/20 | 1 g | 166.7 | | | chloride 0.9% 250 mL IVPB 1 g, | | 19 5:34 | | mL/hr | | | Intravenous, Administer over 90 | | AM PDT | | | | | Minutes, ONCE, Fri06/11/19 at | | | | | | | 0600, For 1 dose, Activate system | | | | | | | and mix before use., | | | | | | | Indications: Prophylaxis | | | | | | + +---------+ +-----+--------+---+ +---+---+ | | | +---+---+ + +---------+ + +--------+---+ | vancomycin 1,200 mg in sodium | New Bag | 06/07/20 | 1,200 mg | 174.7 | | | chloride 0.9% 250 mL IVPB ,200 | | 19 6:50 | | mL/hr | | | mg, Intravenous, Administer over | | AM PDT | | | | | 90 Minutes, 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 | | | | | | | Drug education required., | | | | | | + +-------+ +------+---+---+ +-------+ +------+---+---+ | Given | 06/08/20 | 2 mg | | | | | 19 5:16 | | | | | | PM PDT | | | | +-------+ +------+---+---+ | Given | 06/07/20 | 2 mg | | | | | 19 6:29 | | | | | | PM PDT | | | | +-------+ +------+---+---+ +---+---+ | | | +---+---+ documented in this encounter Additional Health Concerns + + + + | Infection | Noted Time | Resolved Time | + + + + | Methicillin-resistant Staphylococcus aureus | 06/08/2019 9:39 AM | | | | PDT | | + + + + documented as of this encounter
--- OUTSIDE RECORDS SUMMARY | ~2020-03-14 | XMS | Encounter Summary ---
Demographics + + + | Address | [address] | | | [place] [address] | + + + | Home Phone | | + + + | Preferred Language | Unknown | + + + | Marital Status | | + + + | Sikhism Affiliation | Unknown | + + + [...] Team Providers + +------+ + | Care Stone Layer Name | Role | Phone | + +------+ + | Candido Link | PCP | | | MD | | | + +------+ + Reason for Visit + + + | Reason | Comments | + + + | Medication Question | | + + + Encounter Details +--------+ + + + + | Date | Type | Department | Care Team | Description | +--------+ + + + + | 08/16/ | Telephone | [facility] | Nikolay, | Medication Question | | 2018 | | MEDICINE [address] [place] [address] | MD Candido | | | | | [facility] | [address] [place] [address] | | | | | [place] [address] | [place] [address] | | | | | [phone] | [phone] | | | | | | | [...] | | 2019 | Visit | | 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 [address] | | | | | | [place] | | | | | | [address] | | | | | | | | +--------+ + + + + | 04/11/ | Appointment | Radiology | Shawn Michael | | | 2019 | | | MD [address] | | | | | | [address] [place] | | | | | | [place] [address] | | | | | | [phone] | | | | | | | | +--------+ + + + + | 04/13/ | Office | Cardiology | Shawn Michael | | | 2019 | Visit | | MD [address] | | | | | | [address] [place] | | | | | | [place] [address] | | | | | | [phone] | | | | | | | | +--------+ + + + + documented as of this encounter Visit Diagnoses + + | Diagnosis | + + | Nausea - Primary Nausea alone | + + documented in this encounter Additional Health Concerns + + + + | Infection | Noted Time | Resolved Time | + + + + | Methicillin-resistant Staphylococcus aureus | 06/08/2019 9:39 AM | | | | PDT | | + + + + documented as of this encounter"
--- OUTSIDE RECORDS SUMMARY | ~2020-03-14 | XMS | Encounter Summary ---
Demographics + + + | Address | [address] | | | [place] [address] | + + + | Home Phone | | + + + | Preferred Language | Unknown | + + + | Marital Status | | + + + | Orthodox Affiliation | Unknown | + + + | Race | Unknown | + + + | Ethnic Group | Unknown | + + + Author + + + | Author | [facility] | | | and [place] | + + + | Organization | [facility] | | | [...] Team Providers + +------+ + | Care Food And Drug Inspector Name | Role | Phone | + [...] + + | 09/20/ | Telephone | [facility] | Nikolay, | Other (Orders) | | 2018 | | MEDICINE [address] [place] [address] | MD Candido | | | | | [facility] | [address] [place] [address] | | | | | [place] [address] | [place] [address] | | | | | [phone] | [phone] | | | | | | | [...] | | 2019 | 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
--- OUTSIDE RECORDS SUMMARY | ~2020-03-14 | XMS | Encounter Summary ---
Demographics + + + | Address | [address] | | | [place] [address] | + + + | Home Phone | | + + + | Preferred Language | Unknown | + + + | Marital Status | | + + + | Latter-Day Affiliation | Unknown | + + + | Race | Unknown | + + + | Ethnic Group | Unknown | + + + Author + + + | Author | [facility] [...] Team Providers + +------+ + | Care Copy Lathe Tender Name | Role | Phone | [...] + + | 01/02/ | Telephone | [facility] [place] | Lina Correa | Other | | 2020 | | PULMONARY [address] | MD Jan [address] | | | | | [place], | [address] [place] | | | | | [place] [address] | [place] [address] | | | | | [phone] | [phone] | | | | | | | [...] | | 2019 | Visit | | REFRIGERATION INSULATOR [address] | | | | | | [place] | | | | | | [address] | | | | | | | | +--------+ + + + + | 04/11/ | Appointment | Radiology | Shawn Michael | | | 2019 | | | MD [address] | | | | | | [address] [place] | | | | | | [place] [address] | | | | | | [phone] | | | | | | | | +--------+ + + + + | 04/13/ | Office | Cardiology | Shawn Michael | | | 2019 | Visit | | MD [address] | | | | | | [address] [place] | | | | | | [place] [address] | | | | | | [phone] | | | | | | | | +--------+ + + + + documented as of this encounter Visit Diagnoses + + | Diagnosis | + + | Chronic obstructive pulmonary disease, unspecified COPD type (HCC) - Primary | + + documented in this encounter Additional Health Concerns + + + + | Infection | Noted Time | Resolved Time | + + + + | Methicillin-resistant Staphylococcus aureus | 06/08/2019 9:39 AM | | | | PDT | | + + + + documented as of this encounter"
--- OUTSIDE RECORDS SUMMARY | ~2020-03-14 | XMS | Encounter Summary ---
Demographics + + + | Address | [address] | | | [place] [address] | + + + | Home Phone | | + + + | Preferred Language | Unknown | + + + | Marital Status | | + + + | Voodoo Affiliation | Unknown | + + + | Race | Unknown | + + + | Ethnic Group | Unknown | + + + Author + + + | Author | [facility] | | | and [place] | + + + | Organization | [facility] | | [...] Team Providers + +------+ + | Care Contact Printer Dry Film Name | Role | Phone | + [...] + + | Closed | Specialty | | Diagnoses | | [facility], | | | Services | | Generalized | Yana-Rossy | Balaji Mascorro, DO | | | Required | | | i, | [address] | | | | | osteoarthrit | Candido | [place] [id number] | | | | | is | , [address] | [place], | | | | | Procedures | [address] | [place] [address] | | | | | 09/07 > | [place], | Phone: | | | | | PENDING FAX | [place] | [phone] | | | | | NUMBER | [address] | Fax: | | | | | | Phone: | [phone] | | | | | | [phone] | | | | | | | Fax: | | | | | | | [phone] | | +--------+ + + + + + Reason for Visit + + + | Reason | Comments | + + + | Follow-up | Hospital follow up | + + + Encounter Details +--------+---------+ + + + | Date | Type | Department | Care Team | Description | +--------+---------+ + + + | 08/31/ | Office | [facility] | Yana-Lani, | Acute GI bleeding | | 2019 | Visit | MEDICINE [address] [place] [address] | MD Candido | (Primary Dx); Other | | | | [facility] | [address] [place] [address] | iron deficiency | | | | [place] [address] | [place] [address] | anemia; Hiatal | | | | [phone] | [phone] | hernia; Pressure | | | | | | injury of sacral | | | | | | region, stage 1; | | | | | | Generalized | | | | | | osteoarthritis | +--------+---------+ + + + Social History [...] + + + | Blood Pressure | 112/56 | 08/31/2019 11:07 AM | | | | | PST | | + + + + + | Pulse | 88 | 08/31/2019 11:07 AM | | | | | PST | | + + + + + | Temperature | 36.8 C (98.2 F) | 08/31/2019 11:07 AM | | | | | PST | | + + + + + | Respiratory Rate | 20 | 08/31/2019 11:07 AM | | | | | PST | | + + + + + | Oxygen Saturation | 96% | 08/31/2019 11:07 AM | 3 liters | | | | PST | | + + + + + | Inhaled Oxygen | - | - | | | Concentration | | | | + + + + + | Weight | 55.7 kg (122 lb 12.7 | 08/31/2019 11:07 AM | | | | oz) | PST | | + + + + + | Height | 172.7 cm (5' 8") | 08/31/2019 11:07 AM | | | | | PST | | + + + + + | Body Mass Index | 18.67 | 08/31/2019 11:07 AM | | | | | PST | | + + + + + documented in this encounter Progress Notes Candido Link MD - 08/31/2019 11:15 AM PSTFormatting of this note might be d ifferent from the original. CHIEF COMPLAINT Chief Complaint Patient presents with Follow-up Hospital follow up HPI Ángela Crowley is a 89 y.o. y/o female who presents today for several issues: She was recently hospitalized for chest pain and GI bleed and was eventually diagnosed with acute diverticulitis as well as a decubitus ulcer in the sacral area, treated with antibiot ics and made a good recovery so far. She was also diagnosed with chronic anemia and had an upper endoscopy with no major finding s other than hiatal hernia. Has history of persistent anemia with low iron levels, received an iron infusion when she w as hospitalized. She feels better overall. She also has history of generalized osteoarthritis and takes chronic pain medication for it . Has been recently seen in [place] by a pain specialist and they have made plans to see her again in a week to finalize their assessment and issue recommendations for [facility] her. She has been on opiates for many years and she states she ca nnot function without her current pain regimen. I have been refilling this for her while we are waiting for the evaluation from the pain specialist. Her son is with her today who states that he restarted her on carvedilol after he talked to her client success director. Apparently she had the carvedilol discontinued during the recent hospita lization but is not clear to me why that was done. Discharge Date: 08/26/19 Discharge Disposition: Home or Self Care Principle Discharge Diagnosis: CHEST PAIN, ACUTE GI BLEED WITH MELENA, CHRONIC ANEMIA, STA GE 2 SACRAL DECUBITUS, ANXIETY, COPD, CAD, HIATAL HERNIA Admitting Physician: Chace Higuera MD ASSESSMENT & PLAN 1. Acute GI bleeding -This has resolved. We will continue to monitor her blood counts as below. 2. Other iron deficiency anemia - CBC with Differential; Future - Iron and Transferrin; Future - Ferritin; Future 3. Hiatal hernia -On pantoprazole, continue long-term PPI. 4. Pressure injury of sacral region, stage 1 -This is improving, will work on preventing worsening. I will request a recommendation for treatment from the pain specialist she recently seen in [facility]. They indicated that they wanted to see her again after the first visit but patient states she is very reluctant to go on a 6-hour car round trip to see them again. RELEVANT LABS WBC Date Value Ref Range Status 08/25/2019 5.9 4.0 - 11.0 K/uL Final 08/24/2019 6.9 4.0 - 11.0 K/uL Final RBC Date Value Ref Range Status 08/25/2019 3.44 (L) 3.70 - 5.20 M/uL Final 08/24/2019 3.43 (L) 3.70 - 5.20 M/uL Final Hemoglobin Date Value Ref Range Status 08/25/2019 9.9 (L) 11.5 - 16.0 g/dL Final 08/24/2019 9.8 (L) 11.5 - 16.0 g/dL Final Hematocrit Date Value Ref Range Status 08/25/2019 32.1 (L) 34.0 - 47.0 % Final 08/24/2019 31.4 (L) 34.0 - 47.0 % Final MCV Date Value Ref Range Status 08/25/2019 93.3 83.0 - 101.0 fL Final 08/24/2019 91.5 83.0 - 101.0 fL Final RDW-SD Date Value Ref Range Status 08/25/2019 52.5 (H) 35.1 - 46.3 fL Final 08/24/2019 51.8 (H) 35.1 - 46.3 fL Final Platelet Count Date Value Ref Range Status 08/25/2019 160 140 - 440 K/uL Final 08/24/2019 148 140 - 440 K/uL Final Na Date Value Ref Range Status 08/25/2019 142 136 - 145 mmol/L Final 08/24/2019 144 136 - 145 mmol/L Final K Date Value Ref Range Status 08/25/2019 4.2 3.4 - 5.1 mmol/L Final 08/24/2019 3.8 3.4 - 5.1 mmol/L Final Chloride, POC Date Value Ref Range Status 05/31/2019 109 98 - 109 mEq/L Final Cl Date Value Ref Range Status 08/25/2019 106 98 - 107 mmol/L Final 08/24/2019 108 (H) 98 - 107 mmol/L Final CO2 Date Value Ref Range Status 08/25/2019 31 20 - 31 mmol/L Final 08/24/2019 29 20 - 31 mmol/L Final Anion Gap Date Value Ref Range Status 08/25/2019 5 3 - 16 mmol/L Final 08/24/2019 7 3 - 16 mmol/L Final Glucose Date Value Ref Range Status 08/25/2019 75 60 - 106 mg/dL Final 08/24/2019 76 60 - 106 mg/dL Final BUN Date Value Ref Range Status 08/25/2019 18 9 - 23 mg/dL Final 08/24/2019 13 9 - 23 mg/dL Final Creatinine Date Value Ref Range Status 08/25/2019 0.73 0.55 - 1.02 mg/dL Final 08/24/2019 0.65 0.55 - 1.02 mg/dL Final Creatinine, POC Date Value Ref Range Status 05/31/2019 1.0 0.6 - 1.3 mg/dL Final Calcium Date Value Ref Range Status 08/25/2019 8.5 (L) 8.7 - 10.4 mg/dL Final 08/24/2019 8.5 (L) 8.7 - 10.4 mg/dL Final Magnesium Date Value Ref Range Status 08/22/2019 1.9 1.6 - 2.6 mg/dL Final 08/20/2019 1.9 1.6 - 2.6 mg/dL Final Albumin Date Value Ref Range Status 08/19/2019 3.0 (L) 3.2 - 4.8 g/dL Final 07/20/2019 3.8 3.2 - 4.8 g/dL Final Albumin/Globulin Ratio Date Value Ref Range Status 08/19/2019 1.6 0.8 - 1.9 Final 07/20/2019 1.4 0.8 - 1.9 Final Globulin Date Value Ref Range Status 08/19/2019 1.9 (L) 2.1 - 3.8 g/dL Final 07/20/2019 2.7 2.1 - 3.8 g/dL Final Alkaline Phosphatase Date Value Ref Range Status 08/19/2019 182 (H) 46 - 116 U/L Final 07/20/2019 129 (H) 46 - 116 U/L Final ALT Date Value Ref Range Status 08/19/2019 17 10 - 49 U/L Final 07/20/2019 14 10 - 49 U/L Final AST Date Value Ref Range Status 08/19/2019 15 0 - 34 U/L Final 07/20/2019 17 0 - 34 U/L Final Bilirubin Total Date Value Ref Range Status 08/19/2019 0.3 0.3 - 1.2 mg/dL Final 07/20/2019 0.8 0.3 - 1.2 mg/dL Final REVIEW OF SYSTEMS Review of Systems Constitutional: Negative. HENT: Negative. Eyes: Negative. Respiratory: Negative. Cardiovascular: Negative. Gastrointestinal: Negative. Negative for heartburn. Genitourinary: Negative. Musculoskeletal: Positive for back pain and joint pain. Skin: Positive for rash. Neurological: Negative. Endo/Heme/Allergies: Negative. PHYSICAL EXAM VITAL SIGNS: BP 112/56 | Pulse 88 | Temp 36.8 C (98.2 F) (Temporal) | Resp 20 | Ht 1.727 m (5' 8") | Wt 55.7 kg (122 lb 12.7 oz) | SpO2 96% Comment: 3 liters | BMI 18.67 kg/ m Constitutional: Elderly, frail, No acute distress, Pleasant female. HENT: Normocephalic, Atraumatic, Bilateral external ears normal, Oropharynx with no erythma , No oral exudates, Nose normal. Cardiovascular: Regular rate & rhythm, No murmurs, No rubs, No gallops. No lower extremitie s edema. Thorax & Lungs: Normal chest, No respiratory distress, No crackles, wheezing, or rubs. Skin: Mild erythema in the sacral area with no open ulcers. Musculoskeletal: Decreased range of motion in most major joints. Using walker for ambulati on. No joint swelling or redness. 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 1080 mL 0 aspirin 81 mg chewable tablet Take 1 tablet by mouth Daily. 30 tablet 3 atorvaSTATin (LIPITOR) 20 mg tablet Take 1 tablet by mouth every morning. 90 tablet 0 bisacodyl (DULCOLAX) 5 mg EC tablet Take 5 mg by mouth Daily as needed for Constipation . brimonidine (ALPHAGAN) 0.2% ophthalmic solution Place 1 drop into both eyes 2 times millie ly. 12 budesonide (PULMICORT) 0.5 mg/2 mL nebulizer solution Take 2 mLs by nebulization 2 time s daily. Dx Code J44.90 180 mL 3 calcium carbonate (TUMS EX) 750 MG chewable tablet Take 2 tablets by mouth Daily as nee ded for Heartburn. CALCIUM CARBONATE PO Take 1,000 mg by mouth Daily. carvedilol (COREG) 6.25 mg tablet Take 6.25 mg by mouth 2 times daily (with breakfast & dinner). cetirizine (ZYRTEC) 10 mg tablet Take 1 tablet by mouth Daily. 30 tablet 1 Cholecalciferol (VITAMIN D PO) Take 600 Units by mouth every morning. CRANBERRY CONCENTRATE PO Take 15,000 mg by mouth Daily. dicyclomine (BENTYL) 10 mg capsule Take 1 capsule by mouth Daily as needed for GI Upset . 240 capsule 1 docusate sodium (COLACE) 250 MG capsule Take 250 mg by mouth every morning. Hold for lo ose stools dorzolamide (TRUSOPT) 2% ophthalmic solution Place 1 drop into both eyes 2 times daily. 12 escitalopram (LEXAPRO) 5 MG tablet Take 1 tablet by mouth Daily. 30 tablet 3 estradiol (ESTRACE VAGINAL) 0.1 mg/g vaginal cream [...] tablet by mouth Daily. 90 tablet 1 HYDROcodone-acetaminophen (NORCO) 7.5-325 mg per tablet Take 1 tablet by mouth every 8 hours as needed for Pain. 100 tablet 0 latanoprost (XALATAN) 0.005% ophthalmic solution Place [...] as needed for Nausea. 90 tablet 2 oxybutynin (DITROPAN-XL) 10 MG 24 hr tablet Take 1 tablet by mouth Daily. 30 tablet 3 oxygen Inhale 3 L into the lungs [...] mg tablet Take 1 tablet by mouth Daily for 90 days. Patient t o increase to 40mg for 5 days for COPD exacerbation, then return to 10mg daily. (Patient mame ing differently: Take 20 mg by mouth Daily. Patient to increase to 40mg for 5 days for COPD exacerbation, then return to 10mg daily.) 110 tablet 3 Respiratory Therapy Supplies MISC Replacement O2 mask. Please evaluate and provide an O 2 mask that is more useful to the patient. Duration: Lifetime Dx: COPD, severe J44.9 1 each 0 sodium chloride (OCEAN) 0.65% nasal spray 2 sprays by Each Nare route every 2 hours as needed for Nasal Dryness. 0 UNABLE TO FIND Adult Pull ups, medium size 100 each 3 No current facility-administered medications for this visit. ALLERGIES Allergies Allergen Reactions Metronidazole GI Upset Flagyl [Metronidazole] Nausea And Vomiting and GI Upset Percocet [Oxycodone] Unknown Pregabalin Unknown Lyrica Sulfa Antibiotics Unknown FOLLOW-UP Return in about 2 weeks (around 09/14/2019). Notes: 1. Parts of this documentwere created using [employer]uma[employer] speech recognition software. As a resu lt, [...] | | 2019 | Visit | | SENIOR PARTNER [address] | | | | | | [place] | | | | | | [address] | | | | | | | | +--------+ + + + + | 04/11/ | Appointment | Radiology | Shawn Michael | | | 2019 | | | MD [address] | | | | | | [address] [place] | | | | | | [place] [address] | | | | | | [phone] | | | | | | | | +--------+ + + + + | 04/13/ | Office | Cardiology | Shawn Michael | | | 2019 | Visit | | MD [address] | | | | | | [address] [place] | | | | | | [place] [address] | | | | | | [phone] | | | | | | | | +--------+ + + + + + + +--------+ + + | Name | Type | Priori | Associated Diagnoses | Order Schedule | | | | ty | | | + + +--------+ + + | Pain Clinic, | Outpatient | Routin | Generalized | Expected: | | External - AMB | Referral | e | osteoarthritis | 08/31/2019, Expires: | | Referral | | | | 08/31/2020 | + + +--------+ + + documented as of this encounter Results Ferritin (10/14/2019 1:44 PM PST) + +-------+ + + + | Component | Value | Ref Range | Performed | Pathologist | | | | | At | Signature | + +-------+ + + + | FERRITIN | 187 | 7 - 271 ng/mL | [facility] | | | | | [...] [address] | [place] | [phone] | | [facility] | | [address] | | | - LABORATORY | | | | + + + + + Iron and Transferrin (10/14/2019 1:44 PM PST) + + + + + [...] + + + + | TRANSFERRIN | 134.0 (L) | 250.0 - 380.0 | [facility] | | | | | mg/dL | [facility] | | [facility] - | | | | | | LABORATORY | | + + + + + + | TIBC | 188 (L) | 235 - 425 ug/dL | [facility] | | | | | | [facility] | | | | | | [facility] | | | | | | [facility] - | | | | | | LABORATORY | | + + + + + + | % | 12.3 (L) | 15.0 - 50.0 % | [facility] | | | SATURATION | | | [facility] | | [...] [address] | [place] | [phone] | | [facility] | | [address] | | | - LABORATORY | | | | + + + + + documented in this encounter Visit Diagnoses + + | Diagnosis | + + | Acute GI bleeding - Primary Hemorrhage of gastrointestinal tract, unspecified | + + | Other iron deficiency anemia | + + | Hiatal hernia Diaphragmatic hernia without mention of obstruction or gangrene | + + | Pressure injury of sacral region, stage 1 | + + | Generalized osteoarthritis Generalized osteoarthrosis, unspecified site | + + documented in this encounter Additional Health Concerns + + + + | Infection | Noted Time | Resolved Time | + + + + | Methicillin-resistant Staphylococcus aureus | 06/08/2019 9:39 AM | | | | PDT | | + + + + documented as of this encounter
--- OUTSIDE RECORDS SUMMARY | ~2020-03-14 | XMS | Encounter Summary ---
Demographics + + + | Address | [address] | | | [place] [address] | + + + | Home Phone [...] Team Providers + +------+ + | Care Telecommunications Network Engineer Name | Role | Phone | [...] | +--------+ + + + + | 10/07/ | Home Care | [facility] [place] | Bernardo Souza | CASE COMMUNICATION | | 2020 | Visit | [place] [address] | [address] | | | | | [address] [place] | | | | | | [address] | | | | | | [phone] | | | +--------+ + + + [...] | | | | | [place] [address] | | | | | | [phone] | | | | | | | | +--------+ + + + + | 04/13/ | Office | Cardiology | Shawn Michael | | | 2019 | Visit | | MD Marcelino [address] | | | | | | [place] | | | | | | [place] [address] | | | | | | [phone] | | | | | | | [...]
--- OUTSIDE RECORDS SUMMARY | ~2020-03-14 | XMS | Encounter Summary ---
Demographics + + + | Address | [address] | | | [place] [address] | + + + | Home Phone [...] Team Providers + +------+ + | Care Customer Service Specialist Name | Role | Phone | + +------+ + | Candido Link | PCP | | | MD | | | + +------+ + Reason for Visit + + + | Reason | Comments | + + + | Dressing Change | | + + + Encounter Details +--------+ + + + + | Date | Type | Department | Care Team | Description | +--------+ + + + + | 03/14/ | Telephone | [facility] | Nikolay, | Dressing Change | | 2020 | | MEDICINE [address] | MD Candido | | | | | [facility] | [address] [place] [address] | | | | | [place] [address] | [place] [address] | | | | | [phone] | [phone] | | | | | | | [...] | | 2019 | Visit | | PYRIDINE OPERATOR [address] | | | | | | [place] | | | | | | [address] | | | | | | | | +--------+ + + + + | 04/11/ | Appointment | Radiology | Shawn Michael | | | 2019 | | | MD [address] | | | | | | [address] [place] | | | | | | [place] [address] | | | | | | [phone] | | | | | | | | +--------+ + + + + | 04/13/ | Office | Cardiology | Shawn Michael | | | 2019 | Visit | | MD [address] | | | | | | [address] [place] | | | | | | [place] [address] | | | | | | [phone] | | | | | | | [...]
--- OUTSIDE RECORDS SUMMARY | ~2020-03-14 | XMS | Encounter Summary ---
Demographics + + + | Address | [address] | | | [place] [address] | + + + | Home Phone | | + + + | Preferred Language | Unknown | + + + | Marital Status | | + + + | Caodaism Affiliation | Unknown | + + + | Race | Unknown | + + + | Ethnic Group | Unknown | + + + Author + + + | Author | [facility] | | | and [place] | + + + | Organization | [facility] | | | and [...] Team Providers + +------+ + | Care Charging Board Operator Name | Role | Phone | [...] | +--------+ + + + + | 07/13/ | Home Care | [facility] [place] | Bernardo Souza | OT REPEAT VISIT | | 2018 | Visit | [place] [address] | M, DANN | | | | | [place] | | | | | | [address] | | | | | | [phone] | | | +--------+ + + + [...] + + + | Blood Pressure | 100/54 | 07/13/2019 11:26 AM | | | | | PDT | | + + + + + | Pulse | 91 | 07/13/2019 11:26 AM | | | | | PDT | | + + + + + | Temperature | 36.8 C (98.3 F) | 07/13/2019 11:26 AM | | | | | PDT | | + + + + + | Respiratory Rate | - | - | | + + + + + | Oxygen Saturation | 95% | 07/13/2019 11:26 AM | | | | | PDT [...] | | | | | [place] [address] | | | | | | [phone] | | | | | | | | +--------+ + + + + | 04/13/ | Office | Cardiology | Julieta Michaelr | | | 2019 | Visit | | MD Marcelino [address] | | | | | | [address] [place] | | | | | | [place] [address] | | | | | | [phone] | | | | | | | [...]
--- OUTSIDE RECORDS SUMMARY | ~2020-03-14 | XMS | Encounter Summary ---
Demographics + + + | Address | [address] | | | [place] [address] | + + + | Home Phone [...] Team Providers + +------+ + | Care Over Hauler Helper Name | Role | Phone | [...] + | 01/18/ | Home Care | [facility] [place] | Wanda Barbosa, | SN RECERT ([place]) | | 2020 | Visit | [place] [address] | RN | | | | | [place] | | | | | | [address] | | | | | | [phone] | | | +--------+ + + + [...] + + + | Blood Pressure | 132/78 | 01/19/2020 11:15 AM | | | | | PDT | | + + + + + | Pulse | 90 | 01/19/2020 11:15 AM | | | | | PDT | | + + + + + | Temperature | 35.8 C (96.5 F) | 01/19/2020 11:15 AM | | | | | PDT | | + + + + + | Respiratory Rate | 16 | 01/19/2020 11:15 AM | | | | | PDT | | + + + + + | Oxygen Saturation | 94% | 01/19/2020 11:15 AM | | | | | PDT [...] [place] | | | | | | [id number] | | | | | | | | +--------+ + + + + | 04/11/ | Appointment | Radiology | Shawn Michael | | 2019 | | | MD Marcelino [address] | | | | | | [address] | | | | | | [place] [address] | | | | | | [phone] | | | | | | | | +--------+ + + + + | 04/13/ | Office | Cardiology | Shawn Michael | | | 2020 | Visit | | MD Marcelino [address] | | | | | | [address] [place] | | | | | | [place] [address] | | | | | | [phone] | | | | | | | [...] | Visit Type - SN - [place] RECERT | | Discipline - Retirement | + + + + +--------+--------+ + [...] 020 | | | interventio | | Retirement | | | | | n | [...] | | Active | | | | Retirement | | 020 | | | interventio [...] | | Active | | | | Retirement | | 020 | | | interventio [...] | linked to | interventio | | Retirement | | 020 | | scheduled/d | [...] | | | | n | | Retirement | | | | | scheduled/d | [...] | | Active | | | | Retirement | | 020 | | | interventio [...] Problem: HH SHARED | | | Discussed Pressure | | prevention | AT RISK FOR PRESSURE | Comple | | relief again, and | | Description: | ULCER | yoel | | possiblitly for Pressure | | Instruct PT/CG in | | | | relief cushion in | | ways to prevent skin | | | | chair. | | breakdown which | | | [...] | | | assess patient | | oyel | | | | history of falls [...] Problem: HH SHARED | | | See Pain assesss | | Description: | PAIN | Comple [...] care | Problem: Wound | | | Cleansed wound with | | Description: Wound | Management | Comple | | wound cleanser, applied | | type: Pressure sore | | yoel | | skin prep to jennifer wound | | stage 2 Wound | | | | and applied Sacral foam | | location: Coccyx | | | [...]
--- OUTSIDE RECORDS SUMMARY | ~2020-03-14 | XMS | Encounter Summary ---
Demographics + + + | Address | [address] | | | [place] [address] | + + + | Home Phone [...] Team Providers + +------+ + | Care Sales And Service Associate Name | Role | Phone | [...] Description | +--------+--------+ + + + | 01/30/ | Refill | [facility] | Nikolay, | Medication Refill | | 2019 | | MEDICINE [address] | MD Candido | | | | | [facility] | [address] [place] [address] | | | | | [place] [address] | [place] [address] | | | | | [phone] | [phone] | | | | | | | [...] | | 2019 | Visit | | TOBAC[employer] PACKER [address] | | | | | | [place] | | | | | | [address] | | | | | | | | +--------+ + + + + | 04/11/ | Appointment | Radiology | Shawn Michael | | | 2019 | | | MD [address] | | | | | | [address] [place] | | | | | | [place] [address] | | | | | | [phone] | | | | | | | | +--------+ + + + + | 04/13/ | Office | Cardiology | Shawn Michael | | | 2019 | Visit | | MD [address] | | | | | | [address] [place] | | | | | | [place], [place] [address] | | | | | | [phone] | | | | | | | | +--------+ + + + + documented as of this encounter Visit Diagnoses + + | Diagnosis | + + | Generalized osteoarthritis Generalized osteoarthrosis, unspecified site | + + | longterm prescription opiate use | + + documented [...]
--- OUTSIDE RECORDS SUMMARY | ~2020-03-14 | XMS | Encounter Summary ---
Demographics + + + | Address | [address] | | | [place] [address] | + + + | Home Phone | | + + + | Preferred Language | Unknown | + + + | Marital Status | | + + + | Restorationism Affiliation | Unknown | + + + [...] Team Providers + +------+ + | Care Assurance Auditor Name | Role | Phone | + [...] | | | | [place] | | | | | | [address] | | | | | | [phone] | | | +--------+ + + + [...] [place] | | | | | | [address] | | | | | | | | +--------+ + + + + | 04/11/ | Appointment | Radiology | Shawn Michael | | | 2019 | | | MD [address] | | | | | | [address] [place] | | | | | | [place] [address] | | | | | | [phone] | | | | | | | | +--------+ + + + + | 04/13/ | Office | Cardiology | Shawn Michael | | | 2019 | Visit | | MD [address] | | | | | | [address] [place] | | | | | | [place] [address] | | | | | | [phone] | | | | | | | [...]
--- OUTSIDE RECORDS SUMMARY | ~2020-03-14 | XMS | Encounter Summary ---
Demographics + + + | Address | [address] | | | [place] [address] | + + + | Home Phone | | + + + | Preferred Language | Unknown | + + + | Marital Status | | + + + | Quaker Affiliation | Unknown | + + + [...] Team Providers + +------+ + | Care Civil Rights Representative Name | Role | Phone | + [...] | 10/12/ | Home Care | [facility] [place] | Timothy, | CASE COMMUNICATION | | 2020 | Visit | [place] [address] | Tania Garcia CNA | | | | | [place] | | | | | | [address] | | | | | | [phone] | | | +--------+ + + + [...] [place] | | | | | | [address] | | | | | | | | +--------+ + + + + | 04/11/ | Appointment | Radiology | Shawn Michael | | | 2019 | | | MD Marcelino [address] | | | | | | [address] | | | | | | [place] [address] | | | | | | [phone] | | | | | | | | +--------+ + + + + | 04/13/ | Office | Cardiology | Shawn Michael | | | 2020 | Visit | | MD Marcelino [address] | | | | | | [address] | | | | | | [place] [address] | | | | | | [phone] | | | | | | | [...]
--- OUTSIDE RECORDS SUMMARY | ~2020-03-14 | XMS | Encounter Summary ---
Demographics + + + | Address | [address] | | | [place] [address] | + + + | Home Phone | | + + + | Preferred Language | Unknown | + + + | Marital Status | | + + + | Christian Affiliation | Unknown | + + + | Race | Unknown | + + + | Ethnic Group | Unknown | + + + Author + + + | Author | [facility] | | | and [place] | + + + | Organization | [facility] | | | [...] Providers + +------+ + | Care Senior Project Manager Name | Role | Phone | + +------+ + | Candido Link | PCP | | | MD | | | + +------+ + Reason for Visit + + + | Reason | Comments | + + + | Referral Consult | | + + + Encounter Details +--------+ + + + + | Date | Type | Department | Care Team | Description | +--------+ + + + + | 12/09/ | Telephone | [facility] [place] | Shkiha Peace, | Referral Consult | | 2019 | | [place] [address] | RN | | | | | [place] | | | | | | [address] | | | | | | [phone] | | | +--------+ + + + [...] | | 2019 | Visit | | [facility] [employer] [address] | | | | | | [place] | | | | | | [address] | | | | | | | | +--------+ + + + + | 04/11/ | Appointment | Radiology | Shawn Michael | | 2019 | | | MD [address] | | | | | | [address] [place] | | | | | | [place] [address] | | | | | | [phone] | | | | | | | | +--------+ + + + + | 04/13/ | Office | Cardiology | Shawn Michael | | 2019 | Visit | | MD [address] | | | | | | [address] [place] | | | | | | [place] [address] | | | | | | [phone] | | | | | | | [...] | | + + + + | Rhinovirus/Enterovirus (respiratory) | 12/01/2019 9:03 PM | 12/11/2019 11:56 AM | | | PST | UTC | + + + + documented as of this encounter"
--- OUTSIDE RECORDS SUMMARY | ~2020-03-14 | XMS | Encounter Summary ---
Demographics + + + | Address | [address] | | | [place] [address] | + + + | Home Phone | | + + + | Preferred Language | Unknown | + + + | Marital Status | | + + + | Temple Affiliation | Unknown | + + + | Race | Unknown | + + + | Ethnic Group | Unknown | + + + Author + + + | Author | [facility] | | | and [place] | + + + | Organization | [facility] | | | and [...] Team Providers + +------+ + | Care Biological Scientist Name | Role | Phone | [...] 09/15/ | Home Care | [facility] [place] | Raymon Waggoner, | PT SECONDARY EVAL | | 2019 | Visit | [place] [address] | PT [address] | | | | | [place] | [place] | | | | | [address] | [id number] | | | | | [phone] | | | +--------+ + + + [...] +---------+ + + | Blood Pressure | 122/66 | 09/15/2019 11:00 AM | | | | | PST | | + +---------+ + + | Pulse | 76 | 09/15/2019 11:00 AM | | | | | PST | | + +---------+ + + | Temperature | - | - | | + +---------+ + + | Respiratory Rate | - | - | | + +---------+ + + | Oxygen Saturation | - [...] | 2019 | Visit | | SENIOR OFFICER [address] | | | | | | [place] | | | | | | [address] | | | | | | | | +--------+ + + + + | 04/11/ | Appointment | Radiology | Shawn Michael | | | 2019 | | | MD [address] | | | | | | [address] [place] | | | | | | [place] [address] | | | | | | [phone] | | | | | | | | +--------+ + + + + | 04/13/ | Office | Cardiology | Shawn Michael | | | 2019 | Visit | | MD [address] | | | | | | [address] [place] | | | | | | [place] [address] | | | | | | [phone] | | | | | | | [...] + | Visit Type - PT - SECONDARY EVAL | | Discipline - Physical Therapy | [...] HH PT | | | Gait training using | | Description: | IMPAIRED GAITGoal: | | | 4WW on level floor with | | Evaluate and | HH PT GAIT/STAIRS | | | SBA. Patient required | | instruct patient | | | | cues for visually | | and/or caregiver in | | | | assessing the location | | gait training using | | | | of her o2 line during | | 4-wheeled walker no | | | | directional challenges. | | weight bearing | | | | She relies heavily on | | restrictions. | | | | her UE strength on 4WW | | | | | | requiring cues for | | | | | | improved posture to | | | | | | unload weight from arms | | | | | | and hands. | + + +--------+--------+ + | PT transfer | Problem: PT | | | Transfer training | | training | IMPAIRED | | | on/off bed using long | | Description: | TRANSFERSGoal: PT | | | sitting technique with | | Evaluate and | TRANSFERS | | | cues fo body positioning | | instruct patient | | | | further back on bed | | and/or caregiver in | | | | prior to bringing feet | | safe transfers using | | | | onto bed. Cues with sit | | appropriate body | | | | <> stand emphasizing | | mechanics and | | | | steady herself with one | | necessary equipment. | | | | hand on furniture and | | | | | | other on 4WW. | + + +--------+--------+ + documented in this encounter"
--- OUTSIDE RECORDS SUMMARY | ~2020-03-14 | XMS | Encounter Summary ---
Demographics + + + | Address | [address] | | | [place] [address] | + + + | Home Phone | | + + + | Preferred Language | Unknown | + + + | Marital Status | | + + + | Confucianist Affiliation | Unknown | + + + | Race | Unknown | + + + | Ethnic Group | Unknown | + + + Author + + + | Author | [facility] | | | and [place] | + + + | Organization | [facility] | | | and [...] Team Providers + +------+ + | Care Profile Grinder Name | Role | Phone | + [...] + | 12/27/ | Home Care | [facility] [place] | Ginger Lynn RN | CASE COMMUNICATION | | 2020 | Visit | [place] [address] | | | | | | [place] | | | | | | [address] | | | | | | [phone] | | | +--------+ + + + [...] | | | | | [place] [address] | | | | | | [phone] | | | | | | | | +--------+ + + + + | 04/13/ | Office | Cardiology | Shawn Michael | | 2019 | Visit | | MD Marcelino [address] | | | | | | [address] | | | | | | [place] [address] | | | | | | [phone] | | | | | | | [...]
--- OUTSIDE RECORDS SUMMARY | ~2020-03-14 | XMS | Encounter Summary ---
Demographics + + + | Address | [address] | | | [place] [address] | + + + | Home Phone [...] Team Providers + +------+ + | Care Transmission Rebuilder Name | Role | Phone | + [...] [place] | | | | | | [address] | | | | | | [phone] | | | +--------+ + + + [...] | | | | | [place] [address] | | | | | | [phone] | | | | | | | | +--------+ + + + + | 04/13/ | Office | Cardiology | Shawn Michael | | 2019 | Visit | | MD Marcelino [address] | | | | | | [address] | | | | | | [place] [address] | | | | | | [phone] | | | | | | | [...]
--- OUTSIDE RECORDS SUMMARY | ~2020-03-14 | XMS | Encounter Summary ---
Demographics + + + | Address | [address] | | | [place] [address] | + + + | Home Phone [...] + + | Author | [facility] | | | and [place] | + + + | Organization | 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 | [phone] | [phone] | +--------+ + + + + + [...] + + | 05/31/ | Hospital | [facility] | Mir Lux | Fall, initial | | 2019 - | Encounter | MED [facility] | Kevin Urbano MD | encounter (Primary | | | | [address] [place] | [address] | Dx); Elevated | | 06/12/ | | [place] [address] | [place] | troponin I level; | | 2019 | | [phone] | [id number] | Closed nondisplaced | | | | | | fracture of distal | | | | | Sam Valladares H, | phalanx of lesser | | | | | [address] | toe of left foot, | | | | | [place] | initial encounter; | | | | | [address] | Weakness; Anemia, | | | | | [phone] | unspecified type; | | | | [...] might be different fro m the original. [place], [place] HOSPITALIST DISCHARGE SUMMARY Pt. Name/Age/: Ángela Crowley 88 y.o. 1930 Date of Admission: 05/31/2019 Date of Discharge: 06/12/2019 Admitting Physician: Efraín Nesbitt MD Primary Care Provider: Kathleen Escobar MD Discharging Physician: Bruce Cochran MD DISCHARGE DIAGNOSES: Active Hospital Problems Diagnosis Heart failure with acute decompensation, type unknown Closed nondisplaced fracture of proximal phalanx of lesser toe of left foot Unwitnessed fall Myocardial infarction type 2 Generalized anxiety disorder Hypertension Moderate protein-calorie malnutrition Cerebral atherosclerosis [facility] (current) use of anticoagulants - clopidogrel (PLAVIX) COPD (chronic obstructive pulmonary disease) Pulmonary hypertension, mild Anemia Coronary artery disease involving [place] coronary artery of [place] heart without angina pectoris Centrilobular emphysema S/p [...] recent rounding rounding (progress) n ote. 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 ENGINEER Was trying to sit on walker but [...] walk on Heart Disease CAD TAVR in [place] February 16, 2019 bioprosthetic complicated by moderate [...] er as he spoke to her Prior Operations Label Clerk [place] area, discussed with son in room with patien t if clot and not anticoag risk of worsening of clot CVA [place] etc... 5th Dr Pineda reviewed and says would stop Anticoag and I spoke with Dr Velazquez (Ting) and e says stop Anticoag that these pressures not unexpected and I told patient this and her son and Dr Cochran office in [place] contacted for their opionion. Did stop Coumadin which is not therapeutic yet anyhow 6th I called Dr Teddy Cochran office and his office has Echo via [facility] but he was to call e and did not. I called Dr Ayoub office and his office provided his pager, no reply yet to p aging him. Addendum (06/11/2019 18:44) Dr Ayoub not answer page so I paged again and am calling office number (now closed but hope to connect to abrasive water jet cutter operator) Addendum (06/11/2019 19:00) Did reach Anna [phone] and she confirmed Mega pager number says now immigration law specialist is Dr Buck and that Doc will be paged and if not reply in 20 minutes call back and the will use cell. I provided by Shar[employer] for call back. Addendum (06/11/2019 19:43) I [...] latter to get back to me Also SECURITY OPERATIONS ENGINEER her Lasix was 20 mg daily not [...] chronic hypoxic respir failure on [place] O2 SECURITY OPERATIONS ENGINEER she says 2-3 liters at home. Today is 97% on 4 liters. 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 Colonoscopy (limited had poor prep) did see the area of concern and has severe divertic ulosis no bleeding no visible cancer and NOT need biopsy, did advance to the descending colo n. 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 Please see progress note and SECURITY OPERATIONS ENGINEER medication list f or any discrepancies. PLEASE NOTE: ~ SECURITY OPERATIONS ENGINEER carvedilol dose 6.25 mg BID (double what was ordered on admit); ~ Hydralazine therapy complete SECURITY OPERATIONS ENGINEER; ~ docusate, fluticasone are PRN not scheduled SECURITY OPERATIONS ENGINEER; ~ added several meds ([place], eye drops, Brovana/Pulmicort nebs, tamsulosin); ~ pt [...] MD at the cardiac study Center in [facility]. Procedure was complicated with moderate perivalvu lar [...] regurgitation pre sent. MD Dr Teddy Nova [facility] [address] [phone] (Son has said Dr Cochran and Dr Ayoub in same office but the number below abrasive water jet cutter operator did not kn ow of Dr Teddy Cochran) Dr Asha Ayoub [place] office [phone] press 5 and his pager is [phone] Dr Marcus Maguire [phone] (dot meyaddendum tdnorefesh nownorefresh) (dot meyvent) (dot [...] 11:am with Dr. Millan . Contact information: [address] [place] [phone] Condition: Patient being discharged with condition improved Greater than 30 minutes were spent on discharge and coordination of post-hospital care. (myla morton) Electronically signed by: Bruce Cochran MD, 06/12/2019 14:06 [facility] Reference. This is NOT part of the [...] this chart may have been created with [employer] recognition software. Occasi onal wrong-word or sound-alike [...] sent through Care Everywhere.Diverticulitis, Discharge Instructions for (French)Congestive Heart Failure (CHF), Left-Sided (French)doc umented in this encounter Medications at Time [...] might be different fro m the original. [place], [place] HOSPITALIST PROGRESS NOTE Patient: Ángela Crowley : 1930: Age: 88 y.o. MedRec: [id number] PCP: Kathleen Escobar MD Admission date: 05/31/2019 [...] and they said got the US by [facility] today and would have him call me after meeting. No call though by 450 pm and the number below no after hours service . Patient's son had told me prior that Dr Teddy Cochran was the person to contact but today victorina murray said that Dr Ayoub to call. I called office (via [employer]) and his office gave me pager karla prajapati I just paged at 450 pm. I called [facility] and Operations Label Clerk there says have Cardiac MRI but not [...] ent and son. Home to here from [place]. Dr Velazquez yesterday said not need cardiac [...] disorder Hypertension Moderate protein-calorie malnutrition Cerebral atherosclerosis termination clerk (current) use of anticoagulants - clopidogrel (PLAVIX) COPD (chronic obstructive pulmonary disease) Pulmonary hypertension, mild Anemia Coronary artery disease involving [place] coronary artery of [place] heart without angina pectoris 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 ENGINEER Was trying to sit on walker but [...] walk on Heart Disease CAD TAVR in [place] February 16, 2019 bioprosthetic complicated by moderate [...] er as he spoke to her Prior Operations Label Clerk [place] area, discussed with son in room with patien t if clot and not anticoag risk of worsening of clot CVA [place] etc... 5th Dr Pineda reviewed and says would stop Anticoag and I spoke with Dr Velazquez (Ting) and h e says stop Anticoag that these pressures not unexpected and I told patient this and her son and Dr Cochran office in [place] contacted for their opionion. Did stop Coumadin which is not therapeutic yet anyhow 6th I called Dr Teddy Cochran office and his office has Echo via [facility] but he was to call m e and did not. I called Dr Ayoub office and his office provided his pager, no reply yet to p aging him. Addendum (06/11/2019 18:44) Dr Ayoub not answer page so I paged again and am calling office number (now closed but hope to connect to abrasive water jet cutter operator) Addendum (06/11/2019 19:00) Did reach Anna [phone] and she confirmed Mega pager number says now immigration law specialist is Dr Buck and that Doc will be paged and if not reply in 20 minutes call back and the will use [employer]. I provided by Sharalike for call back. Addendum (06/11/2019 19:43) I [...] lyn's son and told him the Dr Bcuk said the gradients OK and not concerned [...] latter to get back to me Also SECURITY OPERATIONS ENGINEER her Lasix was 20 mg daily not [...] chronic hypoxic respir failure on [place] O2 SECURITY OPERATIONS ENGINEER 6th she says 2-3 liters at home. Today is 97% on 4 liters. 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 6th Colonoscopy (limited had poor prep) did see the area of concern and has severe divertic ulosis no bleeding no visible cancer and NOT need biopsy, did advance to the descending colo n. 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 Please see progress note and SECURITY OPERATIONS ENGINEER medication list f or any discrepancies. PLEASE NOTE: ~ SECURITY OPERATIONS ENGINEER carvedilol dose 6.25 mg BID (double what was ordered on admit); ~ Hydralazine therapy complete SECURITY OPERATIONS ENGINEER; ~ docusate, fluticasone are PRN not scheduled SECURITY OPERATIONS ENGINEER; ~ added several meds ([place], eye drops, Brovana/Pulmicort nebs, tamsulosin); ~ pt [...] MD at the cardiac study Center in [facility]. Procedure was complicated with moderate perivalvu lar [...] regurgitation pre sent. MD Dr Teddy Nova [facility] [address] [phone] (Son has said Dr Cochran and Dr Ayoub in same office but the number below abrasive water jet cutter operator did not kn ow of Dr Teddy Cochran) Dr Asha Ayoub [place] office [phone] press 5 and his pager is [phone] Dr Marcus Maguire [phone] (dot meyaddendum tdnorefesh nownorefresh) (dot meyvent) (dot [...] appt Jun 16 and Jun 23 per [facility] Brenna was out on (dot meyaddendum tdnorefesh nownorefresh) (dot meytime meycritical meysign) Bruce Cochran MD 06/12/2019 13:17 [facility] Objective Data Serial weights: Filed Weights: 05/31/19 [...] for input(s): IRON, TIBC, PCTSAT, FERRITIN, TSH, [id number], FOLATE in the last 168 hours. Inflammatory [...] ABG No results for input(s): PHART, PO2ART, FRG0PJT, TDZ4YDT, BEART, [id number] in the last 168 h ours. No results for input(s): SPECSOURCE, PHPOCB, PCO2, PO2, HCO3, TCO2, BEART, [id number] in the last 168 hours. Drug of [...] Component Value Units Date/Time Helicobactor pylori Biopsy [[id number]] (Normal) Collected: 06/07/19 0824 Order Status: Completed Lab Status: Final result Updated: 06/09/19 0915 Specimen: Tissue from Stomach, Antrum Helicobacter pylori Ag Negative Culture, Blood [[id number]] Collected: 06/06/19 0849 Order Status: Completed Lab Status: Final result Updated: 06/11/19 0851 Specimen: Peripheral Blood Culture No growth after 5 days incubation. Culture, Blood [[id number]] Collected: 06/06/19806 Order Status: Completed Lab Status: [...] this chart may have been created with [employer] voice recognition software. Occasi onal wrong-word or sound-alike substitutions may have occurred due to the inherent owen itations of voice recognition software. Please read the chart carefully and recognize, using context, where these substitutions have occurred eyer, Bruce Coe MD - 06/11/2019 4:50 PM PDT [facility] PROGRESS NOTE Patient: Ángela Crowley : 1930: Age: 88 y.o. MedRec: [id number] PCP: Kathleen Escobar MD Admission date: 05/31/2019 [...] and they said got the US by [facility] today and would have him call me after meeting. No call though by 450 pm and the number below no after hours service . Patient's son had told me prior that Dr Teddy Cochran was the person to contact but today h e said that Dr Ayoub to call. I called office (via [employer]) and his office gave me pager karla prajapati I just paged at 450 pm. I called [facility] and Operations Label Clerk there says have Cardiac MRI but not [...] ent and son. Home to here from [place]. Dr Velazquez yesterday said not need cardiac [...] disorder Hypertension Moderate protein-calorie malnutrition Cerebral atherosclerosis termination clerk (current) use of anticoagulants - clopidogrel (PLAVIX) COPD (chronic obstructive pulmonary disease) Pulmonary hypertension, mild Anemia Coronary artery disease involving [place] coronary artery of [place] heart without angina pectoris 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 ENGINEER Was trying to sit on walker but [...] walk on Heart Disease CAD TAVR in [place] February 16, 2019 bioprosthetic complicated by moderate [...] and there is risk to anticoagulation, Dr Pnieda was going to look into issue and let me know how best to check for clot in TAVR, he said not JENNIFER, maybe Cardiac CT vs Cardiac MR and son favors latt er as he spoke to her Prior Operations Label Clerk [place] area, discussed with son in room with patien t if clot and not anticoag risk of worsening of clot CVA [place] etc... 5th Dr Pineda reviewed and says would stop Anticoag and I spoke with Dr Velazquez (Ting) and h trevor says stop Anticoag that these pressures not unexpected and I told patient this and her son and Dr Cochran office in [place] contacted for their opionion. Did stop Coumadin which is not therapeutic yet anyhow 6th I called Dr Teddy Cochran office and his office has Echo via [facility] but he was to call m e [...] latter to get back to me Also SECURITY OPERATIONS ENGINEER her Lasix was 20 mg daily not [...] chronic hypoxic respir failure on [place] O2 SECURITY OPERATIONS ENGINEER 6th she says 2-3 liters at home. Today is 97% on 4 liters. 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 Colonoscopy (limited had poor prep) did see the area of concern and has severe divertic ulosis no bleeding no visible cancer and NOT need biopsy, did advance to the descending colo n. 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 Please see progress note and SECURITY OPERATIONS ENGINEER medication list f or any discrepancies. PLEASE NOTE: ~ SECURITY OPERATIONS ENGINEER carvedilol dose 6.25 mg BID (double what was ordered on admit); ~ Hydralazine therapy complete SECURITY OPERATIONS ENGINEER; ~ docusate, fluticasone are PRN not scheduled SECURITY OPERATIONS ENGINEER; ~ added several meds ([place], eye drops, Brovana/Pulmicort nebs, tamsulosin); ~ pt [...] MD at the cardiac study Center in [facility]. Procedure was complicated with moderate perivalvu lar [...] regurgitation pre sent. MD Dr Teddy Nova [facility] [address] [phone] (Son has said Dr Cochran and Dr Ayoub in same office but the number below abrasive water jet cutter operator did not kn ow of Dr Teddy Cochran) Dr Asha Ayoub [place] office [phone] press 5 and his pager is [phone] Dr Marcus Maguire [phone] (dot meyaddendum tdnorefesh nownorefresh) (dot meyvent) (dot malnutattest is attestation for malnutrition) Plan Dr Teddy Cochran not call me back Dr Ayoub paged CXR Still on Zosyn Miralax Carb controlled diet Addendum (06/11/2019 18:44) Dr Ayoub not answer page so I paged again and am calling office number (now closed but hope to connect to abrasive water jet cutter operator) Addendum (06/11/2019 19:00) Did reach Anna [phone] and she confirmed Mega pager number says now immigration law specialist is Dr Buck and that Doc will [...] 18:53) RN walked these over Son provided [phone] and I called twice and does not allow me to reach anyone Son provided [phone] Time spent with the patient (of which more than 50% was in counseling and/or coordination t he patient's care as outlined above) in minutes exceeded 50 minutes. Well now more than an hour, well more. Start following BNP HgBA1c with Jun 12 labs CM said prior that Dr Millan will be PCP Has appt Jun 16 and Jun 23 per [facility] Brenna was out on (dot meyaddendum tdnorefesh nownorefresh) (dot meytime meycritical meysign) Bruce Cochran MD 06/11/2019 16:50 [facility] Objective Data Serial weights: Filed Weights: 05/31/19 [...] 10 mg 10 mg Oral Daily Keyur Carvajla MD 10 mg at 9 0916 dextrose [...] for input(s): IRON, TIBC, PCTSAT, FERRITIN, TSH, [id number], FOLATE in the last 168 hours. Inflammatory [...] ABG No results for input(s): PHART, PO2ART, LUS5PRA, XOP6MLB, BEART, [id number] in the last 168 h ours. No results for input(s): SPECSOURCE, PHPOCB, PCO2, PO2, HCO3, TCO2, BEART, [id number] in the last 168 hours. Drug of [...] Component Value Units Date/Time Helicobactor pylori Biopsy [[id number]] (Normal) Collected: 06/07/19823 Order Status: Completed Lab Status: Final result Updated: 06/09/19914 Specimen: Tissue from Stomach, Antrum Helicobacter pylori Ag Negative Culture, Blood [[id number]] Collected: 06/06/19848 Order Status: Completed Lab Status: Final result Updated: 06/11/19850 Specimen: Peripheral Blood Culture No growth after 5 days incubation. Culture, Blood [[id number]] Collected: 06/06/19806 Order Status: Completed Lab Status: [...] this chart may have been created with [employer] voice recognition software. Occasi onal wrong-word or sound-alike substitutions may have occurred due to the inherent owen itations of voice recognition software. Please read the chart carefully and recognize, using context, where these substitutions have occurred eyer, Bruce Coe MD - 06/10/2019 12:[address] [facility] [place] HOSPITALIST PROGRESS NOTE Patient: Ángela Crowley : 1930: Age: 88 y.o. MedRec: [id number] PCP: Kathleen Escobar MD Admission date: 05/31/2019 [...] I spoke to Dr Cochran office in [place] and he to call me back (Son [...] disorder Hypertension Moderate protein-calorie malnutrition Cerebral atherosclerosis [facility] (current) use of anticoagulants - clopidogrel (PLAVIX) COPD (chronic obstructive pulmonary disease) Pulmonary hypertension, mild Anemia Coronary artery disease involving [place] coronary artery of [place] heart without angina pectoris 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 ENGINEER Was trying to sit on walker but [...] walk on Heart Disease CAD TAVR in [place] February 16, 2019 bioprosthetic complicated by moderate [...] er as he spoke to her Prior Operations Label Clerk [place] area, discussed with son in room with patien t if clot and not anticoag risk of worsening of clot CVA [place] etc... 5th Dr Pineda reviewed and says would stop Anticoag and I spoke with Dr Velazquez (Ting) and victorina murray says stop Anticoag that these pressures not unexpected and I told patient this and her son and Dr Cochran office in [place] contacted for their opionion. 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 Please see progress note and SECURITY OPERATIONS ENGINEER medication list f or any discrepancies. PLEASE NOTE: ~ SECURITY OPERATIONS ENGINEER carvedilol dose 6.25 mg BID (double what was ordered on admit); ~ Hydralazine therapy complete SECURITY OPERATIONS ENGINEER; ~ docusate, fluticasone are PRN not scheduled SECURITY OPERATIONS ENGINEER; ~ added several meds ([place], eye drops, Brovana/Pulmicort nebs, tamsulosin); ~ pt [...] MD at the cardiac study Center in [facility]. Procedure was complicated with moderate perivalvu lar [...] regurgitation pre sent. MD Dr Teddy Nova [address] and [facility] [phone] Dr Asha Velazquez [phone] (dot meyaddendum tdnorefesh nownorefresh) (dot meyvent) (dot [...] meycritical meysign) Bruce Cochran MD 06/10/2019 12:42 [facility] Objective Data Serial weights: Filed Weights: 05/31/19 [...] 1 spray 1 spray Nasal Daily Keyur Carvajla MD 1 spray at 06/10/19 1034 fluticasone [...] for input(s): IRON, TIBC, PCTSAT, FERRITIN, TSH, [id number], FOLATE in the last 168 hours. Inflammatory [...] ABG No results for input(s): PHART, PO2ART, RUG3KEC, CCX2GZC, BEART, N0PPILAT in the last 168 h ours. No results for input(s): SPECSOURCE, PHPOCB, PCO2, PO2, HCO3, TCO2, BEART, [id number] in the last 168 hours. Drug of [...] Component Value Units Date/Time Helicobactor pylori Biopsy [[id number]] (Normal) Collected: 06/07/19 0824 Order Status: Completed Lab Status: Final result Updated: 06/09/19 0915 Specimen: Tissue from Stomach, Antrum Helicobacter pylori Ag Negative Culture, Blood [[id number]] Collected: 06/06/19 0849 Order Status: Completed Lab Status: Preliminary result Updated: 06/09/19 0851 Specimen: Peripheral Blood Culture No growth: Monitored continually by instrument for 5 days Culture, Blood [[id number]] Collected: 06/06/19 0807 Order Status: Completed Lab Status: Preliminary result Updated: 06/09/19 0811 Specimen: Blood from Line Culture No growth: Monitored continually by instrument for 5 days Culture, MRSA [[id number]] Collected: 06/04/19 1329 Order Status: Completed Lab Status: Final result Updated: 06/05/19 0730 Specimen: Tissue from Nares Culture 3+ Staphylococcus aureus,Methicillin resistant (MRSA) Comment: *INFECTION PREVENTION ALERT - MRSA* CONTACT PRECAUTIONS REQUIRED. Culture, Blood [[id number]] Collected: 06/04/19 1154 Order Status: Completed Lab Status: Final result Updated: 06/09/19 1211 Specimen: Peripheral Blood Culture No growth after 5 days incubation. Culture, Blood [[id number]] Collected: 06/04/19 1154 Order Status: Completed Lab [...] this chart may have been created with [employer] voice recognition software. Occasi onal wrong-word or sound-alike substitutions may have occurred due to the inherent owen itations of voice recognition software. Please read the chart carefully and recognize, using context, where these substitutions have occurred eyer, Bruce Coe MD - 06/09/2019 8:31 PM PDT [place], [place] HOSPITALIST PROGRESS NOTE Patient: Ángela Crowley : 1930: Age: 88 y.o. 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 ER Doc at admit aware as was admitter. Heart Disease CAD TAVR in [place] February 16, 2019 bioprosthetic complicated by moderate [...] er as he spoke to her Prior Operations Label Clerk [place] area, discussed with son in room with patien t if clot and not anticoag risk of worsening of clot CVA TN etc... 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, mild Pulm HTN, normal IVC with normal collapse Echo Jun 04 limited TAVR gradient peak 34 mean 14 no sig change 4th discussed with Son and Dr Pineda latter to get back to me Also SECURITY OPERATIONS ENGINEER her Lasix was 20 mg daily not [...] chronic hypoxic respir failure on NC O2 SECURITY OPERATIONS ENGINEER Heme positive stool Hx of EGD for Schtazkis ring EGD Jun 07 Dr Stoddard mild ring dilated, gastroparesis, gastritis PRBC once on Jun 02 son says had Colonoscopy due to bleeding 11 months ago and was clean, 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 Please see progress note and SECURITY OPERATIONS ENGINEER medication list f or any discrepancies. PLEASE NOTE: ~ SECURITY OPERATIONS ENGINEER carvedilol dose 6.25 mg BID (double what was ordered on admit); ~ Hydralazine therapy complete SECURITY OPERATIONS ENGINEER; ~ docusate, fluticasone are PRN not scheduled SECURITY OPERATIONS ENGINEER; ~ added several meds ([place], eye drops, Brovana/Pulmicort nebs, tamsulosin); ~ pt [...] MD at the cardiac study Center in [facility]. Procedure was complicated with moderate perivalvu lar [...] regurgitation pre sent. MD Dr Teddy Nova [facility] [address] [phone] Dr Asha Velazquez [phone] (dot meyaddendum tdnorefesh nownorefresh) (dot meyvent) (dot [...] meycritical meysign) Bruce Cochran MD 06/09/2019 20:31 [facility] Objective Data Serial weights: Filed Weights: 05/31/19 [...] for input(s): IRON, TIBC, PCTSAT, FERRITIN, TSH, [id number], FOLATE in the last 168 hours. Inflammatory [...] ABG No results for input(s): PHART, PO2ART, JOD7VQC, OLV1NIH, BEART, D9GAPCIR in the last 168 h ours. No results for input(s): SPECSOURCE, PHPOCB, PCO2, PO2, HCO3, TCO2, BEART, [id number] in the last 168 hours. Drug of [...] Component Value Units Date/Time Helicobactor pylori Biopsy [[id number]] (Normal) Collected: 06/07/19 0824 Order Status: Completed Lab Status: Final result Updated: 06/09/19 0915 Specimen: Tissue from Stomach, Antrum Helicobacter pylori Ag Negative Culture, Blood [[id number]] Collected: 06/06/19 0849 Order Status: Completed Lab Status: Preliminary result Updated: 06/09/19 0851 Specimen: Peripheral Blood Culture No growth: Monitored continually by instrument for 5 days Culture, Blood [[id number]] Collected: 06/06/19 0807 Order Status: Completed Lab Status: Preliminary result Updated: 06/09/19 0811 Specimen: Blood from Line Culture No growth: Monitored continually by instrument for 5 days Culture, MRSA [[id number]] Collected: 06/04/19 1329 Order Status: Completed Lab Status: Final result Updated: 06/05/19 0730 Specimen: Tissue from Nares Culture 3+ Staphylococcus aureus,Methicillin resistant (MRSA) Comment: *INFECTION PREVENTION ALERT - MRSA* CONTACT PRECAUTIONS REQUIRED. Culture, Blood [[id number]] Collected: 06/04/19 1154 Order Status: Completed Lab Status: Final result Updated: 06/09/19 1211 Specimen: Peripheral Blood Culture No growth after 5 days incubation. Culture, Blood [[id number]] Collected: 06/04/19 1154 Order Status: Completed Lab [...] this chart may have been created with [employer] voice recognition software. Occasi onal wrong-word or sound-alike substitutions may have occurred due to the inherent owen itations of voice recognition software. Please read the chart carefully and recognize, using context, where these substitutions have occurred eyer, Bruce Coe MD - 06/08/2019 4:45 PM PDT [place], [place] HOSPITALIST PROGRESS NOTE Patient: Ángela Crowley : 1930: Age: 88 y.o. 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 Please see progress note and SECURITY OPERATIONS ENGINEER medication list f or any discrepancies. PLEASE NOTE: ~ SECURITY OPERATIONS ENGINEER carvedilol dose 6.25 mg BID (double what was ordered on admit); ~ Hydralazine therapy complete SECURITY OPERATIONS ENGINEER; ~ docusate, fluticasone are PRN not scheduled SECURITY OPERATIONS ENGINEER; ~ added several meds ([place], eye drops, Brovana/Pulmicort nebs, tamsulosin); ~ pt [...] meycritical meysign) Bruce Cochran MD 06/08/2019 16:45 [facility] Objective Data Serial weights: Filed Weights: 05/31/19 [...] for input(s): IRON, TIBC, PCTSAT, FERRITIN, TSH, [id number], FOLATE in the last 168 hours. Inflammatory [...] ABG No results for input(s): PHART, PO2ART, LGP1BMR, MWY6OGF, BEART, E5LFKXSO in the last 168 h ours. No results for input(s): SPECSOURCE, PHPOCB, PCO2, PO2, HCO3, TCO2, BEART, [id number] in the last 168 hours. Drug of [...] Component Value Units Date/Time Helicobactor pylori Biopsy [[id number]] Collected: 06/07/19 0824 Order Status: Sent Lab Status: In process Updated: 06/07/19844 Specimen: Tissue from Stomach, Antrum Culture, Blood [[id number]] Collected: 06/06/19 0849 Order Status: Completed Lab Status: Preliminary result Updated: 06/06/192050 Specimen: Peripheral Blood Culture No growth: Monitored continually by instrument for 5 days Culture, Blood [[id number]] Collected: 06/06/19806 Order Status: Completed Lab Status: Preliminary result Updated: 06/06/192010 Specimen: Blood from Line Culture No growth: Monitored continually by instrument for 5 days Culture, MRSA [[id number]] Collected: 06/04/19 1329 Order Status: Completed Lab Status: Final result Updated: 06/05/19 07 Specimen: Tissue from Nares Culture 3+ Staphylococcus aureus,Methicillin resistant (MRSA) Comment: *INFECTION PREVENTION ALERT - MRSA* CONTACT PRECAUTIONS REQUIRED. Culture, Blood [[id number]] Collected: 06/04/191153 Order Status: Completed Lab Status: Preliminary result Updated: 06/07/19 121 Specimen: Peripheral Blood Culture No growth: Monitored continually by instrument for 5 days Culture, Blood [[id number]] Collected: 06/04/191153 Order Status: Completed Lab Status: Preliminary result Updated: 06/07/191210 Specimen: Peripheral Blood Culture No growth: Monitored continually by instrument for 5 days Culture, Blood [[id number]] Collected: 06/02/191914 Order Status: Completed Lab Status: Final result Updated: 06/07/191920 Specimen: Peripheral Blood Culture No growth after 5 days incubation. Culture, Blood [[id number]] Collected: 06/02/191914 Order Status: Completed Lab Status: [...] this chart may have been created with [employer] voice recognition software. Occasi onal wrong-word or sound-alike substitutions may have occurred due to the inherent owen itations of voice recognition software. Please read the chart carefully and recognize, using context, where these substitutions have occurred eyur Carvajal MD - 06/07/2019 5:24 PM PDT [facility] Hospitalist Progress Note Ángela Crowley is [...] a.m. stopping the hydrocortisone. 2. Type 2 TN versus NSTEMI Patient's troponin has trended to baseline from 05/31 value of 0.13. Patient had TAVR in 02/04 and would have had coronary angiography prior to procedure. We are continue to work on obtaining any results of coronary arteriography.She was referred for her TAVR from [facility] in [place] and medical records is working to try [...] daily and will follow Hemoccults.She will need [place] at the time of discharge to have [employer]iv[employer]s shooting for an INR no greater than [...] as outlined above. Keyur Carvajal 06/07/2019 17:24 [facility] Portions of this chart may have been created with [employer] voice recognition software. Occasi onal wrong-word or [...] wallace MD - 10/2018 7:45 PM PDT [facility] Hospitalist Progress Note Ángela Crowley is [...] have shown clinical improvement. 2. Type 2 TN versus NSTEMI Patient's troponin has trended to [...] as outlined above. Keyur Carvajal 06/06/2019 19:45 [facility] Portions of this chart may have been created with [employer] voice recognition software. Occasi onal wrong-word or sound-alike substitutions may have occurred due to the inherent owen itations of voice recognition software. Please read the chart carefully and recognize, using context, where these substitutions have occurred arkerKeyur MD - 0 06/05/2019 7:53 PM PDT [facility] Hospitalist Progress Note Ángela Crowley is [...] mg every 8 hours. 2. Type 2 TN versus NSTEMI Patient's troponin has trended to [...] as outlined above. Keyur Carvajal 06/06/2019 19:53 [facility] Portions of this chart may have been created with [employer] voice recognition software. Occasi onal wrong-word or [...] medication list or bottles ? MAR from [facility] facility: ? Doctor's office: ? Pharmacy list names: [facility] ? [place] State Prescription Monitoring Program ? [place] State Prescription Monitoring Program ? [employer] insurance reported information ? Care Everywhere ? Outside Information ? Other sources: Verbal interview with sonYadiel, who manages patient's medications Vaccines up to date? Yes No Unsure Influenza x Pneumococcal x Tdap x Shingles x Noted medications discrepancies or medication-related issues: Dosage/Form/Frequency change: SECURITY OPERATIONS ENGINEER Medication: Prior to Admission Sig: Correct Dosage/Form: [...] mL by nebulization twice daily Per son, pain coordinator instructed him to mix with Budesonide marcelino Budesonide 0.5 mg/2 mL neb marcelino 2 mL by nebulization twice daily Per son, pain coordinator instructed him to mix with Arformoterol marcelino [...] Prior to Admission Sig: Patient taking differently SECURITY OPERATIONS ENGINEER as: Alprazolam 0.25 mg tab 1 tab [...] 1 tab by mouth daily Son states die cutter apprentice lowered dose ~8 months ago. Best possible SECURITY OPERATIONS ENGINEER medication list after pharmacy review: PT REPORTED [...] performed and electronically signed by Ly Guido, Licensed Customs Broker 11:34 Reviewed by Autumn Sutherland, PharmD 06/05/2019 [...] MD - 06/04/2019 11:2 9 AM PDT [facility] Hospitalist Progress Note Ángela Crowley is [...] improves with this . 2. Type 2 TN versus NSTEMI Patient's troponin has trended to [...] as outlined above. Keyur Carvajal 06/04/2019 11:29 [facility] Portions of this chart may have been created with [employer] voice recognition software. Occasi onal wrong-word or [...] waves in leads V4-6:cannot rule out lateral TN age indeterminant Cannot rule out Inferior infarct , age undetermined [address] elevation in leads V4-6:consider ischemia/infarction No previous ECGs available Confirmed by UMESH JOSEPH, LEONIDAS ([id number]) on 06/01/2019 5:26:47 AM Which is compared to today's ECG 05/31/2019: ROUTE SPECIALIST/SURGICAL ATTENDANT: 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 Potential bioprosthetic aortic valve thrombosis A. Post TAVR with 23 mm Edward Sapian S3 valve on 02/16/2019 by Asha Ayoub MD at the cardiac study Center in [facility]. Procedure was complicated with modera te perivalvular [...] is 75 to 80%. Evidence of #23 Ifshman sapient 3 TAVR. There is still significant [...] is i n a class I of [place] [employer] functional class. There is no fluid retention on physical examination. 2. Coronary artery disease A. Left heart cath in [facility] on 02/16/2019 suggest noncritical CAD. However, r eport is not available. B. Troponin earlier was elevated at 0.13, however, patient has no chest pain no evidence of heart failure. C. She is treated appropriately with combination of aspirin, statin and beta-barbara. 3. Essential hypertension A. Blood pressure this morning is well controlled. 4. Anemia with GI bleeding A. She was admitted to [place] on 05/31/2019 because of falls and feeling [...] both accurate and complete. Clint Jovel MD [facility] 06/04/2019 8:10 Portions of this chart may have been created with [employer] voice recognition software. Occasi onal wrong-word or sound-alike substitutions may have occurred due to the inherent owen itations of voice recognition software. Please read the chart carefully and recognize, using context, where these substitutions have occurred. eyur Carvajal MD - 06/03/2019 9:28 PM PDT [facility] Hospitalist Progress Note Ángela Crowley is a 88 y.o. female ASSESSMENT and PLAN: 1. Type 2 TN versus NSTEMI Patient's troponin has trended to baseline from 05/31 value of 0.13. Patient had TAVR in 02/04 and would have had coronary angiography prior to procedure. [facility] queried today and has no record [...] as outlined above. Keyur Carvajal 06/03/2019 21:30 [facility] Portions of this chart may have been created with [employer] voice recognition software. Occasi onal wrong-word or sound-alike substitutions may have occurred due to the inherent owen itations of voice recognition software. Please read the chart carefully and recognize, using context, where these substitutions have occurred arker, Keyur Murray MD - 0 06/02/2019 6:23 PM PDT [facility] Hospitalist Progress Note Ángela Crowley is a 88 y.o. female ASSESSMENT and PLAN: 1. Type 2 TN versus NSTEMI Patient's troponin has really turned [...] blood cultures. Coronary angiography was requested from [facility] but this compon ent was not received. [...] Intake/Output Summary (Last 24 hours) at 06/02/2019 9123 Last data filed at 06/02/2019 1756 Gross [...] as outlined above. Keyur Carvajal 06/02/2019 18:23 [facility] Portions of this chart may have been created with [employer] voice recognition software. Occasi onal wrong-word or sound-alike substitutions may have occurred due to the inherent owen itations of voice recognition software. Please read the chart carefully and recognize, using context, where these substitutions have occurred arkerKeyur MD - 0 06/01/2019 6:47 PM PDT [facility] Hospitalist Progress Note Ángela Crowley is a 88 y.o. female ASSESSMENT and PLAN: 1. Type 2 TN versus NSTEMI Patient's troponin has really turned [...] will try to obtain these records from [facility]. 2. Anemia. Patient has multiple etiologies. Hemoccults [...] as outlined above. Keyur Carvajal 06/02/2019 18:47 [facility] Portions of this chart may have been created with [employer] voice recognition software. Occasi onal wrong-word or [...] | | 2019 | Visit | | [address] | | | | | | [place] | | | | | | [address] | | | | | | | | +--------+ + + + + | 04/11/ | Appointment | Radiology | Shawn Michael | | | 2019 | | | MD [address] | | | | | | [address] [place] | | | | | | [place] [address] | | | | | | [phone] | | | | | | | | +--------+ + + + + | 04/13/ | Office | Cardiology | Shawn Michael | | | 2019 | Visit | | MD [address] | | | | | | [address] [place] | | | | | | [place] [address] | | | | | | [phone] | | | | | | | [...] | + +--------+ + + + | [employer]ASTEWATER [employer] CIVIL ENGINEER REPORT - | | 02/16/2019 | | [...] [address] | [place] | [phone] | | [facility] | | [address] | | | - LABORATORY | | [...] [address] | [place] | [phone] | | [facility] | | [address] | | | - LABORATORY | | [...] | [address] | [place] | [phone] | | [facility] | | [address] | | | - LABORATORY | | [...] [address] | [place] | [phone] | | [facility] | | [address] | | | - LABORATORY | | [...] | mL/min/1.73m2 | [facility] | | | [place] [place] | RATE,ESTIMATED | | MEDICAL | | | | mL/min/1.49w2Wwmz than | | CENTER - | | [...] [address] | [place] | [phone] | | [facility] | | [address] | | | - LABORATORY | | [...] + | [address] | [address] | [place] | [phone] | | [facility] | | [address] | | | - LABORATORY | | [...] + | [address] | [address] | [place] | [phone] | | [facility] | | [address] | | | - LABORATORY | | [...] + | [address] | [address] | [place] | [phone] | | [facility] | | [address] | | | - LABORATORY | | [...] + | [address] | [address] | [place], [place] | [phone] | | [facility] | | [address] | | | - LABORATORY | | | | + + + + + COLONOSCOPY (06/11/2019 7:45 AM PDT) + + | Specimen | + + | | + + + + -+ | Narrative | Performed At | + + -+ | | [facility] | | GastroenterologyPatient Name: Ángela ClarosesProcedure Date: 06/11/2019 | PROVATION | | 7:45 AMMRN: [id number] #: [id number] of : | | | 1930Admit Type: InpatientAge: 88Room: Endo Room 1Gender: | | | FemaleNote Status: FinalizedAttending MD: Edwin Stoddard , | | | MDProcedure: ColonoscopyIndications: Abnormal CT | | | of the GI tractProviders: Edwin Stoddard MD, Lorena Morrell, | | | RN, Ailin Bui, Filter Operator, Yahir Moy | | | MD Sravan [...] the anesthesiologist and the | | | technician automatic in the endoscopy suite. Mental Status Examination: [...] AMScope Out: 8:12:08 AM | | | [facility], [address], [place] | | | [address] | | | - Stricture in the [...] |Scope Out: 8:12:08 AM | | | [facility], [address] [facility], [place], [place] | | | [address] | | + + -+ + +---------+ [...] [address] | [place] | [phone] | | [facility] | | [address] | | | - LABORATORY | | [...] mL/min/1.73m2 | [facility] | | | [place] | RATE,ESTIMATED | | MEDICAL | | | | mL/min/1.15a5Nary than | | CENTER - | | [...] [address] | [place] | [phone] | | [facility] | | [address] | | | - LABORATORY | | [...] + | [facility] | [address] | [place] | [phone] | | [facility] | | [address] | | | - LABORATORY | | [...] [address] | [place] | [phone] | | [facility] | | [address] | | | - LABORATORY | | [...] [address] | [place] | [phone] | | [facility] | | [address] | | | - LABORATORY | | [...] + | [facility] | [address] | [place] | [phone] | | [facility] | | [address] | | | - LABORATORY | | [...] [address] | [place] | [phone] | | [facility] | | [address] | | | - LABORATORY | | [...] + | [facility] | [address] | [place] | [phone] | | [facility] | | [address] | | | - LABORATORY | | [...] mL/min/1.73m2 | [facility] | | | [place] | RATE,ESTIMATED | | MEDICAL | | | | mL/min/1.61d7Stbk than | | CENTER - | | [...] [address] | [place] | [phone] | | [facility] | | [address] | | | - LABORATORY | | [...] [address] | [place] | [phone] | | [facility] | | [address] | | | - LABORATORY | | [...] [address] | [place] | [phone] | | [facility] | | [address] | | | - LABORATORY | | [...] [address] | [place] | [phone] | | [facility] | | [address] | | | - LABORATORY | | [...] [address] | [place] | [phone] | | [facility] | | [address] | | | - LABORATORY | | [...] + | [facility] | [address] | [place] | [phone] | | [facility] | | [address] | | | - LABORATORY | | [...] mL/min/1.73m2 | [facility] | | | [place] | RATE,ESTIMATED | | MEDICAL | | | | mL/min/1.23a3Fcun than | | CENTER - | | [...] [address] | [place] | [phone] | | [facility] | | [address] | | | - LABORATORY | | [...] [address] | [place] | [phone] | | [facility] | | [address] | | | - LABORATORY | | [...] [address] | [place] | [phone] | | [facility] | | [address] | | | - LABORATORY | | [...] [address] | [place] | [phone] | | [facility] | | [address] | | | - LABORATORY | | [...] [address] | [place] | [phone] | | [facility] | | [address] | | | - LABORATORY | | [...] + | [facility] | [address] | [place] | [phone] | | [facility] | | [address] | | | - LABORATORY | | [...] [address] | [place] | [phone] | | [facility] | | [address] | | | - LABORATORY | | [...] [address] | [place] | [phone] | | [facility] | | [address] | | | - LABORATORY | | [...] | [address] | [place], [place] | [phone] | | [facility] | | [address] | | | - LABORATORY | | [...] [address] | [place] | [phone] | | [facility] | | [address] | | | - LABORATORY | | [...] [address] | [place] | [phone] | | [facility] | | [address] | | | - LABORATORY | | [...] + | [facility] | [address] | [place] | [phone] | | [facility] | | [address] | | | - LABORATORY | | [...] [address] | [place] | [phone] | | [facility] | | [address] | | | - LABORATORY | | [...] [address] | [place] | [phone] | | [facility] | | [address] | | | - LABORATORY | | | | + + + + + EGD (06/07/2019 7:41 AM PDT) + + | Specimen | + + | | + + + + -+ | Narrative | Performed At | + + -+ | | [facility] | | GastroenterologyPatient Name: Ángela Padron Date: 06/07/2019 | PROVATION | | 7:41 [facility]: [id number] #: [id number] of : | | | 1930Admit Type: InpatientAge: 88Room: Endo Room 1Gender: | | | FemaleNote Status: FinalizedAttending MD: Edwin Stoddard , | | | MDProcedure: Upper GI endoscopyIndications: | | | Esophageal dysphagia, Occult blood in stoolProviders: | | | Edwin Stoddard MD, Ivett Alexandra RN, Marita | | | Stanley Phillip, Filter Operator, Hermilo Alcocer (Anesthesia | | | Staff)Medicines: [...] the anesthesiologist and the | | | technician automatic in the endoscopy suite. Mental Status Examination: [...] AMScope Out: 8:29:07 | | | AM [facility], [address] | | | [place] [address] | | | the duodenum, area of [...] Out: 8:29:07 AM | | | Brittany [facility], [address], [place], [place] | | | [address] | | + + -+ + +---------+ [...] [address] | [place] | [phone] | | [facility] | | [address] | | | - LABORATORY | | [...] 22 | 9 - 23 mg/dL | [facility] | | | | | | [facility] | | | | | | MEDICAL | | | | | | CENTER - | | | | | | LABORATORY | | + + + + + + | Creatinine | 0.81 | 0.55 - 1.02 | [facility] | | | | | mg/dL | [facility] | | | | | | MEDICAL | | | | | | CENTER - | | | | | | LABORATORY | | + + + + + + | eGFR if not | >60Comment: GLOMERULAR | >=60 | [facility] | | | | FILTRATION | mL/min/1.73m2 | [facility] | | | [place] | RATE,ESTIMATED | | MEDICAL | | | | mL/min/1.05r8Usou than | | CENTER - | | [...] [address] | [place] | [phone] | | [facility] | | [address] | | | - LABORATORY | | [...] + | [facility] | [address] | [place] | [phone] | | [facility] | | [address] | | | - LABORATORY | | [...] [address] | [place] | [phone] | | [facility] | | [address] | | | - LABORATORY | | [...] + | [facility] | [address] | [place] | [phone] | | [facility] | | [address] | | | - LABORATORY | | [...] [address] | [place] | [phone] | | [facility] | | [address] | | | - LABORATORY | | [...] in | Consistent with previous | | [facility] | | | | results. | [...] | [address] | [place] | [phone] | | [facility] | | [address] | | | - LABORATORY | | [...] [address] | [place] | [phone] | | [facility] | | [address] | | | - LABORATORY | | [...] [address] | [place] | [phone] | | [facility] | | [address] | | | - LABORATORY | | [...] [address] | [place] | [phone] | | [facility] | | [address] | | | - LABORATORY | | [...] + | [facility] | [address] | [place] | [phone] | | [facility] | | [address] | | | - LABORATORY | | [...] [address] | [place] | [phone] | | [facility] | | [address] | | | - LABORATORY | | [...] + | [facility] | [address] | [place] | [phone] | | [facility] | | [address] | | | - LABORATORY | | [...] | + + + + + | [facility] | [address] | [place], [place] | [phone] | | [facility] | | [address] | | | - LABORATORY | | [...] [address] | [place] | [phone] | | [facility] | | [address] | | | - LABORATORY | | [...] + | [facility] | [address] | [place] | [phone] | | [facility] | | [address] | | | - LABORATORY | | [...] mL/min/1.73m2 | [facility] | | | [place] | RATE,ESTIMATED | | MEDICAL | | | | mL/min/1.76h0Pbvt than | | CENTER - | | [...] 8.5 (L) | 8.7 - 10.4 | [facility] | | | | | mg/dL | [...] [address] | [place] | [phone] | | [facility] | | [address] | | | - LABORATORY | | [...] [facility] | | | | | | [facility] | | | | | | [...] + | [facility] | [address] | [place] | [phone] | | [facility] | | [address] | | | - LABORATORY | | [...] [address] | [place] | [phone] | | [facility] | | [address] | | | - LABORATORY | | [...] [address] | [place] | [phone] | | [facility] | | [address] | | | - LABORATORY | | [...] + | [facility] | [address] | [place] | [phone] | | [facility] | | [address] | | | - LABORATORY | | [...] [address] | [place] | [phone] | | [facility] | | [address] | | | - LABORATORY | | [...] [address] | [place] | [phone] | | [facility] | | [address] | | | - LABORATORY | | [...] + | [facility] | [address] | [place] | [phone] | | [facility] | | [address] | | | - LABORATORY | | [...] mL/min/1.73m2 | [facility] | | | [place] | RATE,ESTIMATED | | MEDICAL | | | | mL/min/1.66m7Jzqq than | | CENTER - | | [...] [address] | [place] | [phone] | | [facility] | | [address] | | | - LABORATORY | | [...] | | | FILTRATION | mL/min/1.73m2 | [facility] | | | [place] | RATE,ESTIMATED | | MEDICAL | | | | mL/min/1.76j4Qlnt than | | CENTER - | | [...] | | | | | mg/dL | [facility] | | | | | | [...] [address] | [place] | [phone] | | [facility] | | [address] | | | - LABORATORY | | [...] ST. | [address] | [place], [place] | [phone] | | [facility] | | [address] | | | - LABORATORY | | [...] [address] | [place] | [phone] | | [facility] | | [address] | | | - LABORATORY | | [...] | Procedure Note | + + | Kboe, Rad Results In - 06/04/2019 2:55 PM [...] ampullary mucinous neoplasms. The largest | | vfxnyavb91 mm.Catheter in the bladder. No visible balloon. [...] + | [facility] | [address] | [place] | [phone] | | [facility] | | [address] | | | - LABORATORY | | [...] - 1.030 | [facility] | | | [place], | | | [facility] | | [...] [address] | [place] | [phone] | | [facility] | | [address] | | | - LABORATORY | | [...] [facility] | | | | | | [facility] | | | Neutrophils | | [...] [address] | [place] | [phone] | | [facility] | | [address] | | | - LABORATORY | | [...] | mL/min/1.73m2 | [facility] | | | [place] | RATE,ESTIMATED | | MEDICAL | | | | mL/min/1.30g0Graz than | | CENTER - | | [...] [address] | [place] | [phone] | | [facility] | | [address] | | | - LABORATORY | | [...] [address] | [place] | [phone] | | [facility] | | [address] | | | - LABORATORY | | [...] [address] | [place] | [phone] | | [facility] | | [address] | | | - LABORATORY | | [...] [address] | [place] | [phone] | | [facility] | | [address] | | | - LABORATORY | | [...] | [address] | [place] | [phone] | | [facility] | | [address] | | | - LABORATORY | | [...] [address] | [place] | [phone] | | [facility] | | [address] | | | - LABORATORY | | [...] [address] | [place] | [phone] | | [facility] | | [address] | | | - LABORATORY | | [...] + | [facility] | [address] | [place] | [phone] | | [facility] | | [address] | | | - LABORATORY | | [...] mL/min/1.73m2 | [facility] | | | [place] | RATE,ESTIMATED | | MEDICAL | | | | mL/min/1.93u3Dvnq than | | CENTER - | | [...] [address] | [place] | [phone] | | [facility] | | [address] | | | - LABORATORY | | [...] [address] | [place] | [phone] | | [facility] | | [address] | | | - LABORATORY | | [...] [address] | [place] | [phone] | | [facility] | | [address] | | | - LABORATORY | | [...] [address] | [place] | [phone] | | [facility] | | [address] | | | - LABORATORY | | [...] [address] | [place] | [phone] | | [facility] | | [address] | | | - LABORATORY | | [...] [address] | [place] | [phone] | | [facility] | | [address] | | | - LABORATORY | | [...] + | [facility] | [address] | [place] | [phone] | | [facility] | | [address] | | | - LABORATORY | | [...] | | | FILTRATION | mL/min/1.73m2 | [facility] | | | [place] | RATE,ESTIMATED | | MEDICAL | | | | mL/min/1.09l4Pevx than | | CENTER - | | [...] 8.2 (L) | 8.7 - 10.4 | [facility] | | | | | mg/dL | [facility] | | | | | | [...] [address] | [place] | [phone] | | [facility] | | [address] | | | - LABORATORY | | [...] [address] | [place] | [phone] | | [facility] | | [address] | | | - LABORATORY | | [...] | [address] | [place] | [phone] | | [facility] | | [address] | | | - LABORATORY | | [...] + | [facility] | [address] | [place] | [phone] | | [facility] | | [address] | | | - LABORATORY | | [...] + | [facility] | [address] | [place] | [phone] | | [facility] | | [address] | | | - LABORATORY | | [...] + | [facility] | [address] | [place] | [phone] | | [facility] | | [address] | | | - LABORATORY | | [...] [address] | [place] | [phone] | | [facility] | | [address] | | | - LABORATORY | | [...] [address] | [place] | [phone] | | [facility] | | [address] | | | - LABORATORY | | [...] [address] | [place] | [phone] | | [facility] | | [address] | | | - LABORATORY | | [...] [address] | [place] | [phone] | | [facility] | | [address] | | | - LABORATORY | | [...] | [address] | [place] | [phone] | | [facility] | | [address] | | | - LABORATORY | | [...] [address] | [place] | [phone] | | [facility] | | [address] | | | - LABORATORY | | [...] [address] | [place] | [phone] | | [facility] | | [address] | | | - LABORATORY | | | | + + + + + Red Blood Cells (PRBC) - Crossmatch (06/02/2019 12:03 AM PDT) + + + + + + | Component | Value | Ref Range | Performed | Pathologist | | | | | At | Signature | + + + + + + | Product | [id number] | | [facility] | | | Code | | | [facility] | | | | | | MEDICAL | | | | | | CENTER - | | | | | | BLOOD BANK | | + + + + + + | UNIT # | [id number] | | [facility] | | | | [...] + + + + | Blood | [id number] | | [facility] | | | Product [...] [address] | [place] | | | [facility] | | [address] | | | - BLOOD BANK | [...] [address] | [place] | [phone] | | [facility] | | [address] | | | - LABORATORY | | [...] + | [facility] | [address] | [place], [place] | [phone] | | [facility] | | [address] | | | - LABORATORY | | [...] mL/min/1.73m2 | [facility] | | | [place] | RATE,ESTIMATED | | MEDICAL | | | | mL/min/1.96z1Qsux than | | CENTER - | | [...] [address] | [place] | [phone] | | [facility] | | [address] | | | - LABORATORY | | [...] [place] | | | [facility] | | [address] | | | - BLOOD BANK | [...] [address] | [place] | [phone] | | [facility] | | [address] | | | - LABORATORY | | [...] + | [facility] | [address] | [place] | [phone] | | [facility] | | [address] | | | - LABORATORY | | [...] | | | POC | | | [facility] | | | | | | [...] + | [facility] | [address] | [place] | [phone] | | [facility] | | [address] | | | - LABORATORY | | [...] [address] | [place] | [phone] | | [facility] | | [address] | | | - LABORATORY | | [...] + | [facility] | [address] | [place] | [phone] | | [facility] | | [address] | | | - LABORATORY | | [...] [address] | [place] | [phone] | | [facility] | | [address] | | | - LABORATORY | | [...] [address] | [place] | [phone] | | [facility] | | [address] | | | - LABORATORY | | [...] [address] | [place] | [phone] | | [facility] | | [address] | | | - LABORATORY | | [...] | | | | | | n Tate | | | | | + + [...] | | | | | | n Tate | | | | | + + [...] [address] | [place] | [phone] | | [facility] | | [address] | | | - LABORATORY | | [...] + | [facility] | [address] | [place] | [phone] | | [facility] | | [address] | | | - LABORATORY | | [...] + | [facility] | [address] | [place], [place] | [phone] | | [facility] | | [address] | | | - LABORATORY | | [...] [address] | [place] | [phone] | | [facility] | | [address] | | | - LABORATORY | | [...] | | | | | | [employer] | | | | | [...] [address] | [place] | [phone] | | [facility] | | [address] | | | - LABORATORY | | [...] + | [facility] | [address] | [place] | [phone] | | [facility] | | [address] | | | - LABORATORY | | [...] | mL/min/1.73m2 | [facility] | | | [place] | RATE,ESTIMATED | | MEDICAL | | | | mL/min/1.60i7Bhzs than | | CENTER - | | [...] [address] | [place] | [phone] | | [facility] | | [address] | | | - LABORATORY | | [...] associated prominence of the ventricles. There are abab-oz-ritplrik | | | scattered regions of periventricular [...] + | Kobe, Rad Results In - 06/01/2019 9:19 AM [...] associated prominence of the ventricles. There are fkjc-lg-rliupidm | | scattered regions of periventricular and [...] + | [facility] | [address] | [place] | [phone] | | [facility] | | [address] | | | - LABORATORY | | | | + + + + + Troponin I (05/31/2019 7:59 PM PDT) + + + + + + | Component | Value | Ref Range | Performed | Pathologist | | | | | At | Signature | + + + + + + | Troponin I | 0.11 (H)Comment: | <0.06 ng/mL | [facility] | | | | Comment:Reference | | [...] | | | | | | [employer] | | | | | [...] [address] | [place] | [phone] | | [facility] | | [address] | | | - LABORATORY | | [...] | [address] | [place] | [phone] | | [facility] | | [address] | | | - LABORATORY | | [...] mL/min/1.73m2 | [facility] | | | [place] | | | MEDICAL | | | [...] [address] | [place] | [phone] | | [facility] | | [address] | | | - LABORATORY | | [...] - 1.030 | [facility] | | | [place], | | | [facility] | | [...] [address] | [place] | [phone] | | [facility] | | [address] | | | - LABORATORY | | [...] + | [facility] | [address] | [place] | [phone] | | [facility] | | [address] | | | - LABORATORY | | [...] [address] | [place] | [phone] | | [facility] | | [address] | | | - LABORATORY | | [...] | [address] | [place], [place] | [phone] | | [facility] | | [address] | | | - LABORATORY | | [...] | | | | | | [employer] | | | | | [...] [address] | [place] | [phone] | | [facility] | | [address] | | | - LABORATORY | | [...] + | [facility] | [address] | [place] | [phone] | | [facility] | | [address] | | | - LABORATORY | | [...] in | 12 - 53 U/L | [facility] | | | | use as of December 02, | | [facility] | | | | 2018. Check [...] + | [facility] | [address] | [place] | [phone] | | [facility] | | [address] | | | - LABORATORY | | [...] mL/min/1.73m2 | [facility] | | | [place] | RATE,ESTIMATED | | MEDICAL | | | | mL/min/1.48e8Wfpo than | | CENTER - | | [...] (L) | 3.2 - 4.8 g/dL | [facility] | | | | | | ST. [...] [address] | [place] | [phone] | | [facility] | | [address] | | | - LABORATORY | | [...] + | [facility] | [address] | [place] | [phone] | | [facility] | | [address] | | | - LABORATORY | | [...] + | [facility] | [address] | [place] | [phone] | | [facility] | | [address] | | | - LABORATORY | | [...] | | | | | | lateral [place] age | | | | | | [...] | | | | LEONIDAS CALVO MD ([id number]) | | | | | | on [...] unspecified provider. 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 If | | | [...] | | | | | | | 0202-3195 Use NIGHT DOSE for | | | | | | | doses scheduled: HS, 3AM, | | | | | | | Nighttime 5139-0738 If the BG is | | | [...] | | | | | NPO, Daytime 0693-6236 Use NIGHT | | | | | | | DOSE for doses scheduled: | | | | | | | HS, 3AM, Nighttime 0258-3507 If | | | | | | [...] | | | | | dose on [facility] 06/03/19 at 2100 | | | [...] medications/reasons PHARMACY | | | CONSULT, Starting [facility] 06/10/19 at | | | 1524, [...] | | | | | 90 Minutes, HELP DESK REPRESENTATIVE, Starting Mon | | | | | [...]
--- OUTSIDE RECORDS SUMMARY | ~2020-03-14 | XMS | Encounter Summary ---
Demographics + + + | Address | [address] | | | [place] [address] | + + + | Home Phone | | + + + | Preferred Language | Unknown | + + + | Marital Status | | + + + | Jehovah'S Witness Affiliation | Unknown | + + + [...] Team Providers + +------+ + | Care Crop Puller Name | Role | Phone | + [...] + + + + | 09/03/ | Telephone | [facility] | Nikolay, | Care Coordination | | 2019 | | MEDICINE [address] [place] [address] | MD Candido | | | | | [place] | [address] [place] [address] | | | | | [place] [address] | [place] [address] | | | | | [phone] | [phone] | | | | | | | [...] | | 2019 | Visit | | YACHT CAPTAIN [address] | | | | | | [place] | | | | | | [address] | | | | | | | | +--------+ + + + + | 04/11/ | Appointment | Radiology | Shawn Michael | | | 2019 | | | MD Mynor Benson [address] | | | | | | [address] [place] | | | | | | [place] [address] | | | | | | [phone] | | | | | | | | +--------+ + + + + | 04/13/ | Office | Cardiology | Shawn Michael | | | 2019 | Visit | | MD Mynor Benson [address] | | | | | | [address] [place] | | | | | | [place] [address] | | | | | | [phone] | | | | | | | [...]
--- OUTSIDE RECORDS SUMMARY | ~2020-03-14 | XMS | Encounter Summary ---
Demographics + + + | Address | [address] | | | [place] [address] | + + + | Home Phone | | + + + | Preferred Language | Unknown | + + + | Marital Status | | + + + | Episcopal Affiliation | Unknown | + + + [...] Team Providers + +------+ + | Care Small Engine Technician Name | Role | Phone | [...] + + + + | 07/05/ | Home Care | [facility] [place] | García Walker, PT | PT REASSESSMENT | | 2018 | Visit | [place] [address] | [address] [place] | (COUNT OR 30 DAY) | | | | [place] | [place] [address] | | | | | [address] | [phone] | | | | | [phone] | | | +--------+ + + + [...] + | Blood Pressure | 120/60 | 07/05/2019 11:30 AM | | | | | PDT | | + + + + + | Pulse | 81 | 07/05/2019 11:30 AM | | | | | PDT | | + + + + + | Temperature | 36.7 C (98 F) | 07/05/2019 11:30 AM | | | | | PDT | | + + + + + | Respiratory Rate | - | - | | + + + + + | Oxygen Saturation | 96% | 07/05/2019 11:30 AM | on 3L pnc | | | | PDT | | [...] [place] | | | | | | [id number] | | | | | | | | +--------+ + + + + | 04/11/ | Appointment | Radiology | Shawn Michael | | 2019 | | | MD Marcelino [address] | | | | | | [address] | | | | | | [place] [address] | | | | | | [phone] | | | | | | | | +--------+ + + + + | 04/13/ | Office | Cardiology | Shawn Michael | | | 2020 | Visit | | MD Marcelino [address] | | | | | | [address] [place] | | | | | | [place] [address] | | | | | | [phone] | | | | | | | [...] Dyspnea | | | 1 goal | | | Disciplines: | | | Active | linked to | | | Physical Therapy | | 019 | | scheduled/d | | | | | | | ocumented | | | | | | | interventio | | | | | | | n | | + + +--------+--------+ + + | HH PT IMPAIRED | Impaired gait | | | 1 goal | | | GAIT Disciplines: | | | Active | linked to | | | Physical Therapy | | 019 | | scheduled/d | | | | | | | ocumented | | | | | | | interventio | | | | | | | n | | + + +--------+--------+ + + | HH PT IMPAIRED | Impaired strength | | | 1 goal | | | STRENGTH | | | Active | linked to | | | Disciplines: | | 019 | | scheduled/d | | | Physical Therapy | | | | ocumented | | | | | | | interventio | | | | | | | n | | + + +--------+--------+ + + | HH PT IMPAIRED | Impaired transfers | | | 1 goal | | | TRANSFERS | | | Active | linked to | | | Disciplines: | | 019 | | scheduled/d | | | Physical Therapy | | | | ocumented | | | | | | | interventio | | | | | | | n | | + + +--------+--------+ + + | HH SHARED FALLS | Falls | | | 1 goal | | | Disciplines: | | | Active | linked to | | | Physical Therapy | | 019 | | scheduled/d | | | | | | | ocumented | | | | | | | interventio | | | | | | | n | | + + +--------+--------+ + + | HH SHARED PAIN | Pain | | | 1 goal | | | Disciplines: | | | Active | linked to | | | Physical Therapy | | 019 | | scheduled/d | | | | | | | ocumented | | | | | | | interventio | | | | | | | n | | + + +--------+--------+ + + + + +--------+-------+ + | Goal | Associated Problem | Outcom | Goal | Visit Notes | | | | e | Met? | | + + +--------+-------+ + | HH PT DYSPNEA | HH PT DYSPNEA | | No | | | Description: The | | Ongoin | | | | patient will be able | | g, | | | | to maintain O2 sats | | progre | | | | at or above 90% | | ssing | | | | after 100 ft | | | | | | ambulation., Notify | | | | | | MD if oxygen | | | | | | saturation is less | | | | | | than 90%. Outcomes: | | | | | | The patient will be | | | | | | able to gait and | | | | | | ADLs with improved | | | | | | respiratory function | | | | | | and decreased | | | | | | symptoms of dyspnea. | | | | | + + +--------+-------+ + | HH PT GAIT/STAIRS | HH PT IMPAIRED | | No | | | Description: The | GAIT | Ongoin | | | | patient will | | g, | | | | ambulate 500 feet | | progre | | | | using least | | ssing | | | | restrictive AD | | | | | | independently., The | | | | | | patient will manage | | | | | | up and down 2 steps | | | | | | using least | | | | | | restrictive AD with | | | | | | [...] | | No | | | Description: LE | STRENGTH | Ongoin | | | | strength 4+/5 or | | g, | | | | greater for | | progre | | | | bilateral LE | | ssing | | | | strength. Outcomes: | | | | | | The patient's | | | | | | strength will | | | | | | improve so that they | | | | | | can perform ADLs, | | | | | | transfers and gait | | | | | | with improved safety | | | | | | and independence. | | | | | + + +--------+-------+ + | HH PT TRANSFERS | HH PT IMPAIRED | | No | Patient has an elbow | | Description: Safe | TRANSFERS | Ongoin | | injury from a fall which | | and independent with | | g, not | | makes it more difficult | | all ADL transfers; | | | | for her to push up to | | SBA for shower and | | progre | | standing. She required | | car. Outcomes: The | | ssing | | min A today. | | patient will reach | | | | | | maximal independence | | | | | | and safety with | | | | | | transfers to/from | | | | | | the all necessary | | | | | | household surfaces | | | | | + + +--------+-------+ + | HH FALL PREVENTION | HH SHARED FALLS | Met | Yes | | | UNDERSTANDING | | | [...] | | | Description: The | | Ongoin | | | | patient will rate | | g, not | | | | right knee pain at | | | | | | 4/10 or less. | | progre | | | | Outcomes: The | | ssing | | | | patient will be able | | | | | | to walk and perform | | | | | | ADLs with decreased | | | | | | symptoms of pain. | | | | | + + +--------+-------+ + documented in this encounter"
--- OUTSIDE RECORDS SUMMARY | ~2020-03-14 | XMS | Encounter Summary ---
Demographics + + + | Address | [address] | | | [place] [address] | + + + | Home Phone [...] Providers + +------+ + | Care Barrel Reamer Name | Role | Phone | + [...] 12/19/ | Home Care | [facility] [place] | Nivia Olivarez CNA | HH AIDE REPEAT VISIT | | 2019 | Visit | [place] [address] | | | | | | [place] | | | | | | [address] | | | | | | [phone] | | | +--------+ + + + [...] [place] | | | | | | [id number] | | | | | | | | +--------+ + + + + | 04/11/ | Appointment | Radiology | Shawn Michael | | 2019 | | | MD Marcelino [address] | | | | | | [address] | | | | | | [place] [address] | | | | | | [phone] | | | | | | | | +--------+ + + + + | 04/13/ | Office | Cardiology | Julieta Michaelr | | | 2019 | Visit | | MD Marcelino [address] | | | | | | [address] [place] | | | | | | [place] [address] | | | | | | [phone] | | | | | | | [...] Plan + + | Visit Type - UPHOLSTERY INSTRUCTOR - REPEAT VISIT | | Discipline - [...] + + | HH Aide Need | UPHOLSTERY INSTRUCTOR services | | | 1 goal | [...] | | | ocumented | | | [facility], | | | | interventio | | | Physical Therapy, | | | | n | | | Home Health Aide, | | | | | | | Model Maker Apprentice, | | | | | | | [...]
--- OUTSIDE RECORDS SUMMARY | ~2020-03-14 | XMS | Encounter Summary ---
Demographics + + + | Address | [address] | | | [place] [address] | + + + | Home Phone [...] Team Providers + +------+ + | Care Bucket Operator Name | Role | Phone | [...] | +--------+ + + + + | 06/21/ | Home Care | [facility] [place] | Emily Reynolds, PT | CASE COMMUNICATION | | 2019 | Visit | [place] [address] | | | | | | [place] | | | | | | [address] | | | | | | [phone] | | | +--------+ + + + [...] | | | | | [place] [address] | | | | | | [phone] | | | | | | | | +--------+ + + + + | 04/13/ | Office | Cardiology | Shawn Michael | | 2019 | Visit | | MD Marcelino [address] | | | | | | [address] | | | | | | [place] [address] | | | | | | [phone] | | | | | | | [...]
--- OUTSIDE RECORDS SUMMARY | ~2020-03-14 | XMS | Encounter Summary ---
Demographics + + + | Address | [address] | | | [place] [address] | + + + | Home Phone | | + + + | Preferred Language | Unknown | + + + | Marital Status | | + + + | Sabianism Affiliation | Unknown | + + + [...] Team Providers + +------+ + | Care Street Car Inspector Name | Role | Phone | [...] + + | 12/23/ | Telephone | [facility] | Nikolay, | DME | | 2019 | | MEDICINE [address] [place] [address] | MD Candido | | | | | [facility] | [address] [place] [address] | | | | | [place] [address] | [place] [address] | | | | | [phone] | [phone] | | | | | | | [...] | | 2019 | Visit | | PROJECT COORDINATOR [address] | | | | | | [place] | | | | | | [address] | | | | | | | | +--------+ + + + + | 04/11/ | Appointment | Radiology | Shawn Michael | | | 2019 | | | MD [address] | | | | | | [address] [place] | | | | | | [place] [address] | | | | | | [phone] | | | | | | | | +--------+ + + + + | 04/13/ | Office | Cardiology | Shawn Michael | | | 2019 | Visit | | MD [address] | | | | | | [address] [place] | | | | | | [place] [address] | | | | | | [phone] | | | | | | | | +--------+ + + + + documented as of this encounter Visit Diagnoses + + | Diagnosis | + + | Mixed stress and urge urinary incontinence Mixed incontinence urge and stress | | (male)(female) | + + documented in this encounter Additional Health Concerns + + + + | Infection | Noted Time | Resolved Time | + + + + | Methicillin-resistant Staphylococcus aureus | 06/08/2019 9:39 AM | | | | PDT | | + + + + documented as of this encounter"
--- OUTSIDE RECORDS SUMMARY | ~2020-03-14 | XMS | Encounter Summary ---
Demographics + + + | Address | [address] | | | [place] [address] | + + + | Home Phone [...] Team Providers + +------+ + | Care Side Framer Name | Role | Phone | + [...] [place] | | | | | | [address] | | | | | | [phone] | | | +--------+ + + + [...] [place] | | | | | | [address] | | | | | | | | +--------+ + + + + | 04/11/ | Appointment | Radiology | Shawn Michael | | | 2019 | | | MD Marcelino [address] | | | | | | [address] | | | | | | [place] [address] | | | | | | [phone] | | | | | | | | +--------+ + + + + | 04/13/ | Office | Cardiology | Zacharynnamdi Shawn | | | 2019 | Visit | | MD Marcelino [address] | | | | | | [address] [place] | | | | | | [place] [address] | | | | | | [phone] | | | | | | | [...] - OASIS DANIELLA | | Discipline - Longterm | + + + + +--------+--------+ + [...] 020 | | | interventio | | Longterm | | | | | n | [...] 020 | | | interventio | | Longterm | | | | | n | [...] | | Active | | | | Longterm | | 020 | | | interventio [...] | | Active | | | | Longterm | | 020 | | | interventio [...] 020 | | | interventio | | Longterm | | | | | n | [...] | linked to | interventio | | Longterm | | 020 | | scheduled/d | [...] | | | | n | | Longterm, | | | | | scheduled/d | | Physical Therapy, | | | | | ocumented | | Home Health Aide, | | | | | in this | | Boat Operator, | | | | | visit | [...] | | | | ns | | Longterm | | | | | scheduled/d | [...] | | scheduled/d | ns | | Longterm, | | | | ocumented | scheduled/d [...] | | Active | | | | Longterm | | 020 | | | interventio [...] to | | | | | | OUTDOOR FITNESS TRAINER for counseling | | | | | [...]
--- OUTSIDE RECORDS SUMMARY | ~2020-03-14 | XMS | Encounter Summary ---
Demographics + + + | Address | [address] | | | [place] [address] | + + + | Home Phone [...] + + | Author | [facility] | | | and [place] | + + + | Organization | [facility] | | | and [...] Team Providers + +------+ + | Care Hand Salter Name | Role | Phone | + +------+ + | Candido Link | PCP | | | MD | | | + +------+ + Encounter Details +--------+ + + + + | Date | Type | Department | Care Team | Description | +--------+ + + + + | 11/30/ | Emergency | [facility] | No, Physician p | Procedure and | | 2019 | | [facility] | | treatment not | | | | CENTER [address] | | carried out due to | | | | [place] | | patient leaving | | | | [address] | | prior to being seen | | | | [phone] | | by health care | | | | | | provider (Primary | | | | | | Dx) | +--------+ + + + + Social [...] + + + | Blood Pressure | 108/56 | 11/30/2019 11:30 AM | | | | | PST | | + + + + + | Pulse | 91 | 11/30/2019 11:30 AM | | | | | PST | | + + + + + | Temperature | 37.9 C (100.2 F) | 11/30/2019 11:30 AM | | | | | PST | | + + + + + | Respiratory Rate | 16 | 11/30/2019 11:30 AM | | | | | PST | | + + + + + | Oxygen Saturation | 97% | 11/30/2019 11:30 AM | | | | | PST | | + + + + + | Inhaled Oxygen | - | - | | | Concentration | | | | + + + + + | Weight | 53.1 kg (117 lb) | 11/30/2019 11:30 AM | | | | | PST | | + + + + + | Height | 165.1 cm (5' 5") | 11/30/2019 11:30 AM | | | | | PST | | + + + + + | Body Mass Index | 19.47 | 11/30/2019 11:30 AM | | | | | PST | | + + + + + documented in this encounter Medications at Time [...] g by mouth | | 0 | / | | | glycol (MIRALAX) | Daily [...] 3 mLs by | | 0 | 11/25/19 | | | albuterol-ipratropiu | nebulization Every 4 | | | 20 | 0 | | m 2.5-0.5 mg/3 mL | hours. | | | | | | SOLN | | | | | | + [...] + + + +---------+ + + | benzonatate | Take 1 capsule by | 21 | 0 | 11/30/19 | | | (TESSALON) 100 mg | mouth 3 times daily | capsule | | 20 | 0 | | capsuleIndications: | as needed for Cough. | | | | | | COPD exacerbation | | | | | | [...] tablet by | 120 | 0 | 12/10/19 | | | HYDROcodone-acetamin | mouth every [...] +---------+ + + | oxybutynin | Take 10 mg by mouth | | 0 | 11/25/19 | | | (DITROPAN-XL) 10 MG | Daily. | | | 20 | 0 | | 24 hr tablet [...] | | 2019 | Visit | | [address] | | | | | | [place] | | | | | | [address] | | | | | | | | +--------+ + + + + | 04/11/ | Appointment | Radiology | Shawn Michael | | | 2019 | | | MD Marcelino [address] | | | | | | [address] | | | | | | [place] [address] | | | | | | [phone] | | | | | | | | +--------+ + + + + | 04/13/ | Office | Cardiology | Shawn Michael | | 2019 | Visit | | MD Marcelino [address] | | | | | | [address] [place] | | | | | | [place] [address] | | | | | | [phone] | | | | | | | | +--------+ + + + + + +------+--------+ + + | Name | Type | Priori | Associated Diagnoses | Date/Time | | | | ty | | | + +------+--------+ + + | ED INFORMATION | MICHAEL | Routin | | 11/30/2019 11:18 AM | | EXCHANGE | | e | | PST | + +------+--------+ + + documented as of this encounter Visit Diagnoses + + | Diagnosis | + + | Procedure and treatment not carried out due to patient leaving prior to being seen by | | health care provider - Primary | + + documented in [...]
--- OUTSIDE RECORDS SUMMARY | ~2020-03-14 | XMS | Encounter Summary ---
Demographics + + + | Address | [address] | | | [place] [address] | + + + | Home Phone | | + + + | Preferred Language | Unknown | + + + | Marital Status | | + + + | Anabaptism Affiliation | Unknown | + + + | Race | Unknown | + + + | Ethnic Group | Unknown | + + + Author + + + | Author | [facility] | | | and [place] | + + + | Organization | [facility] | | | [...] Team Providers + +------+ + | Care Raw Scales Operator Name | Role | Phone | [...] + + + + | 06/15/ | Home Care | [facility] [place] | Bernardo Souza | TELEPHONE ENCOUNTER | | 2019 | Visit | [place] [address] | [place] | | | | | [place] | | | | | | [address] | | | | | | [phone] | | | +--------+ + + + [...] | | 2019 | Visit | | MATHEMATICS EDUCATION PROFESSOR [address] | | | | | | [place] | | | | | | [address] | | | | | | | | +--------+ + + + + | 04/11/ | Appointment | Radiology | Shawn Michael | | | 2019 | | | MD [address] | | | | | | [address] [place] | | | | | | [place] [address] | | | | | | [phone] | | | | | | | | +--------+ + + + + | 04/13/ | Office | Cardiology | Shawn Michael | | 2019 | Visit | | MD [address] | | | | | | [address] [place] | | | | | | [place] [address] | | | | | | [phone] | | | | | | | [...]
--- OUTSIDE RECORDS SUMMARY | ~2020-03-14 | XMS | Encounter Summary ---
Demographics + + + | Address | [address] | | | [place] [address] | + + + | Home Phone [...] Team Providers + +------+ + | Care Airline Lounge Receptionist Name | Role | Phone | + [...] [place] | | | | | | [address] | | | | | | [phone] | | | +--------+ + + + [...] | | | | | [place] [address] | | | | | | [phone] | | | | | | | | +--------+ + + + + | 04/13/ | Office | Cardiology | Julieta Michaelr | | | 2019 | Visit | | MD Marcelino [address] | | | | | | [address] [place] | | | | | | [place] [address] | | | | | | [phone] | | | | | | | [...]
--- OUTSIDE RECORDS SUMMARY | ~2020-03-14 | XMS | Encounter Summary ---
Demographics + + + | Address | [address] | | | [place] [address] | + + + | Home Phone [...] Team Providers + +------+ + | Care Rn Manager Name | Role | Phone | + +------+ + | Candido Link | PCP | | | MD | | | + +------+ + Reason for Visit + + + | Reason | Comments | + + + | TCM - Hosp FU | | + + + | Dizziness | | + + + | Fatigue | | + + + Encounter Details +--------+---------+ + + + | Date | Type | Department | Care Team | Description | +--------+---------+ + + + | 09/14/ | Office | [facility] | Yana-Lani, | Acute diverticulitis | | 2019 | Visit | MEDICINE [address] [place] [address] | MD Candido | (Primary Dx); | | | | [facility] | [address] [place] [address] | Sepsis, due to | | | | [place] [address] | [place] [address] | unspecified | | | | [phone] | [phone] | organism, | | | | | | unspecified whether | | | | | | acute organ | | | | | | dysfunction present | | | | | | ([facility]); Generalized | | | | | | osteoarthritis; Long | | | | | | term prescription | | | | | | opiate use | +--------+---------+ + + + Social [...] + + + | Blood Pressure | 100/50 | 09/14/2019 10:18 AM | | | | | PST | | + + + + + | Pulse | 86 | 09/14/2019 10:18 AM | | | | | PST | | + + + + + | Temperature | 36.3 C (97.3 F) | 09/14/2019 10:18 AM | | | | | PST | | + + + + + | Respiratory Rate | 16 | 09/14/2019 10:18 AM | | | | | PST | | + + + + + | Oxygen Saturation | 97% | 09/14/2019 10:18 AM | | | | | PST | | + + + + + | Inhaled Oxygen | - | - | | | Concentration | | | | + + + + + | Weight | 57.1 kg (125 lb 14.1 | 09/14/2019 10:18 AM | | | | oz) | PST | | + + + + + | Height | - | - | | + + + + + | Body Mass Index | 20.95 | 09/09/2019 9:25 AM | | | | | PST | | + + + + + documented in this encounter Patient Instructions Patient Instructions Mary Alice David, Freight Handler - 09/14/2019 10:00 AM PSTRememb er to please get a consult note/recommendation from [facility] to help you continue you pain medication. Electronically signed by Jonathan Mazariegos Assistant at 09/14 10:52 AM PST documented in this encounter Progress Notes Candido Link MD - 09/14/2019 10:00 AM PSTFormatting of this note might be d ifferent from the original. -CHIEF COMPLAINT Chief Complaint Patient presents with TCM - Hosp FU Dizziness Fatigue HPI Ángela Lorena Crowley is a 89 y.o. y/o female who presents today for a TCM visit: She was recently hospitalized and treated for acute diverticulitis with sepsis as well as o ther issues as detailed below. She received IV antibiotics and was discharged with 2 weeks course of ertapenem by IV through PICC line. She has finished 1 week of that already. She is experiencing some fatigue and dizziness with this medication and last night she had an ep isode where she became less responsive in the evening but her son thinks it was because she woke up at 4 AM that morning and she was very tired. They did not take her to the hospital as she recovered shortly afterwards. She has history of generalized osteoarthritis with chronic pain and takes hydrocodone on a regular basis. She will need a refill in a few days. She has seen a pain specialist at [facility] pain clinic in [place] a few weeks ago. She did not manage to go for a second visi t because of her recent hospitalization. She needs a refill in a few days. She states she cannot live without this medication. She did have a recent ER visit for a fall where she fe ll out of bed and hurt the back of her head and had a hematoma. She is recovering well from that. No fever or chills. She was started on Escitalopram during her hospitalization for episodes of agitation and mo od fluctuations and anger but her son states she has not been taking it after her discharge. She is worried about side effects. Discharge Date: 09/08/2019 Discharge Disposition: Home or Self Care Discharging Physician: Keyur Carvajal MD DISCHARGE DIAGNOSES: 1. Acute diverticulitis with failure of outpatient antibiotic therapy 2. Elevated troponin consistent with demand ischemia peak with troponin this admission of 0.39 and history of negative coronary angiogram 01/2019 for culpable lesions 3. Chronic hypoxic respiratory failure with patient on 3 L nasal cannula chronically at [facility], secondary to COPD 4. 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 History of complicated TAVR (TAVR within TAVR placement), 2018 6. Evidence of TAVR stenosis echocardiography 05/2019 with peak velocity of 3 m/s and gradi ent of 34 mmHg, mean gradient of 14 mmHg with concern about possible prosthetic stenosis kirby dimitri clot formation. Follow-up echocardiography this admission shows a peak aortic valve gra dient of 30.3 mmHg mean aortic valve gradient of 16 mmHg and peak flow across the aortic iliana ve of 2.75 m/s. 7. Assessment for GI blood loss source with colonoscopy 06/2019 showing severe diverticulos is evidence of stricture of the sigmoid colon, narrowing of the colon associated with divert icular opening, and diverticular spasms. GD performed 08/2019 showing erythematous mucosa o f the body of the stomach and antrum, a 3 cm hiatal hernia and a single mucosal nodule in th e stomach. 8. COPD 9. Sepsis syndrome secondary to problem #1 ASSESSMENT & PLAN 1. Acute diverticulitis -Continue with current course of outpatient IV antibiotic monitor by home health. If she c ontinues to have episodes of altered mental status after IV antibiotic we may have to consid er reducing the dose or early discontinuation. We may also consider discontinuation of IV a ntibiotics early if she develops diarrhea. 2. Sepsis, due to unspecified organism, unspecified whether acute organ dysfunction present (HCC) -This has resolved. 3. Generalized osteoarthritis - HYDROcodone-acetaminophen (NORCO) 7.5-325 mg per tablet; Take 1 tablet by mouth every 8 h ours as needed for Pain. Dispense: 100 tablet; Refill: 0 4. senior care prescription opiate use -I discussed with her and her son the importance of following up with the [facility] to get a consult from them with recommendations for long-term pain management for this p atient. She is very frail and I worry about her risk of fall with her taking hydrocodone bu t at same time her pain level seems to be quite intense when she does not take this medicati on and her quality of life is very low without it. The son says that he will contact the pa in clinic and work with them to get them to write a recommendation for us. RELEVANT LABS WBC Date Value Ref Range Status 09/08/2019 7.9 4.0 - 11.0 K/uL Final 09/07/2019 9.6 4.0 - 11.0 K/uL Final RBC Date Value Ref Range Status 09/08/2019 3.03 (L) 3.70 - 5.20 M/uL Final 09/07/2019 3.14 (L) 3.70 - 5.20 M/uL Final Hemoglobin Date Value Ref Range Status 09/08/2019 8.6 (L) 11.5 - 16.0 g/dL Final 09/07/2019 9.0 (L) 11.5 - 16.0 g/dL Final Hematocrit Date Value Ref Range Status 09/08/2019 29.4 (L) 34.0 - 47.0 % Final 09/07/2019 30.0 (L) 34.0 - 47.0 % Final MCV Date Value Ref Range Status 09/08/2019 97.0 83.0 - 101.0 fL Final 09/07/2019 95.5 83.0 - 101.0 fL Final RDW-SD Date Value Ref Range Status 09/08/2019 57.9 (H) 35.1 - 46.3 fL Final 09/07/2019 57.2 (H) 35.1 - 46.3 fL Final Platelet Count Date Value Ref Range Status 09/08/2019 179 140 - 440 K/uL Final 09/07/2019 176 140 - 440 K/uL Final Na Date Value Ref Range Status 09/08/2019 144 136 - 145 mmol/L Final 09/05/2019 145 136 - 145 mmol/L Final K Date Value Ref Range Status 09/08/2019 4.5 3.4 - 5.1 mmol/L Final 09/05/2019 4.0 3.4 - 5.1 mmol/L Final Chloride, POC Date Value Ref Range Status 05/31/2019 109 98 - 109 mEq/L Final Cl Date Value Ref Range Status 09/08/2019 108 (H) 98 - 107 mmol/L Final 09/05/2019 108 (H) 98 - 107 mmol/L Final CO2 Date Value Ref Range Status 09/08/2019 33 (H) 20 - 31 mmol/L Final 09/05/2019 31 20 - 31 mmol/L Final Anion Gap Date Value Ref Range Status 09/08/2019 3 3 - 16 mmol/L Final 09/05/2019 6 3 - 16 mmol/L Final Glucose Date Value Ref Range Status 09/08/2019 79 60 - 106 mg/dL Final 09/05/2019 103 60 - 106 mg/dL Final BUN Date Value Ref Range Status 09/08/2019 18 9 - 23 mg/dL Final 09/05/2019 13 9 - 23 mg/dL Final Creatinine Date Value Ref Range Status 09/08/2019 0.63 0.55 - 1.02 mg/dL Final 09/05/2019 0.72 0.55 - 1.02 mg/dL Final Creatinine, POC Date Value Ref Range Status 05/31/2019 1.0 0.6 - 1.3 mg/dL Final Calcium Date Value Ref Range Status 09/08/2019 8.4 (L) 8.7 - 10.4 mg/dL Final 09/05/2019 8.5 (L) 8.7 - 10.4 mg/dL Final Magnesium Date Value Ref Range Status 09/05/2019 2.0 1.6 - 2.6 mg/dL Final 09/02/2019 1.9 1.6 - 2.6 mg/dL Final Albumin Date Value Ref Range Status 09/05/2019 2.9 (L) 3.2 - 4.8 g/dL Final 09/02/2019 3.1 (L) 3.2 - 4.8 g/dL Final Albumin/Globulin Ratio Date Value Ref Range Status 09/05/2019 1.5 0.8 - 1.9 Final 09/02/2019 1.7 0.8 - 1.9 Final Globulin Date Value Ref Range Status 09/05/2019 2.0 (L) 2.1 - 3.8 g/dL Final 09/02/2019 1.8 (L) 2.1 - 3.8 g/dL Final Alkaline Phosphatase Date Value Ref Range Status 09/05/2019 92 46 - 116 U/L Final 09/02/2019 117 (H) 46 - 116 U/L Final ALT Date Value Ref Range Status 09/05/2019 18 10 - 49 U/L Final 09/02/2019 26 10 - 49 U/L Final AST Date Value Ref Range Status 09/05/2019 14 0 - 34 U/L Final 09/02/2019 23 0 - 34 U/L Final Bilirubin Total Date Value Ref Range Status 09/05/2019 0.4 0.3 - 1.2 mg/dL Final 09/02/2019 0.5 0.3 - 1.2 mg/dL Final REVIEW OF SYSTEMS Constitutional: No Weight Change, No Fever, No Chills, reports some dizziness ENT/Mouth: No Hearing Changes, No Ear Pain, [...] Endocrine: No Polyuria, No Polydipsia, No Temperature Intolerance PHYSICAL EXAM VITAL SIGNS: BP 100/50 | Pulse 86 | Temp 36.3 C (97.3 F) (Temporal) | Resp 16 | Wt 57.1 kg (125 lb 14.1 oz) | SpO2 97% | No | BMI 20.95 kg/m Constitutional: Well developed, No acute distress, Pleasant female. Cardiovascular: Regular rate & rhythm, No murmurs, No rubs, No gallops. No lower extremitie s edema. Thorax & Lungs: Normal chest, No respiratory distress, No crackles, wheezing, or rubs. Abdomen: Bowel sounds normal, Soft, No tenderness, No HSM, no masses. Skin: Warm, No erythema, No rash. PICC line insertion site in the left upper extremity lo oks fine. Musculoskeletal: Decreased range of motion in most joints. Using walker. Neurologic: Alert & oriented x 3, Normal motor function, Normal sensory function, No focal deficits noted. Psychiatric: Affect normal, [...] Last attempt to quit: 1968 Years since quittin.9 Smokeless tobacco: Never Used Substance and Sexual Activity Alcohol use: Never Frequency: Never SURGICAL HISTORY Past Surgical History: Procedure Laterality Date 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 CHOLECYSTECTOMY COLONOSCOPY N/A 06/11/2019 Procedure: COLONOSCOPY-Possible Flex Sig; Surgeon: Edwin Stoddard MD; Location: [facility] PROCEDURE UNIT HYSTERECTOMY NIRMAL AND BSO TONSILLECTOMY AND ADENOIDECTOMY UPPER GASTROINTESTINAL ENDOSCOPY N/A 06/07/2019 Procedure: EGD; Surgeon: Edwin Stoddard MD; Location: [facility] MED[facility] PROCEDURE UNIT UPPER GASTROINTESTINAL ENDOSCOPY N/A 08/20/2019 Procedure: EGD; Surgeon: John Grimes MD; Location: [facility]ICAL PROCEDURE UNIT CURRENT MEDICATIONS Current [...] ly. Dx Code J44.90) 180 mL 3 calcium carbonate (TUMS EX) 750 MG chewable tablet Take 2 tablets by mouth Daily as nee ded for Heartburn. CALCIUM CARBONATE PO Take 1,000 mg by mouth Daily. carvedilol (COREG) 12.5 mg tablet Take 1 tablet by mouth 2 times daily (with breakfast & dinner). 60 tablet 0 carvedilol (COREG) 6.25 mg tablet Take 6.25 [...] into both eyes 2 times daily. 12 ertapenem (INVanz) IVPB (custom dose) 1 g Inject 1 g into the vein every 24 hours. Vanesa cations: Acute Abdominal Condition 10 each 0 escitalopram (LEXAPRO) 5 MG tablet Take 1 [...] tablet by mouth Daily. 90 tablet 1 heparin 10 units/mL flush injection Inject 5 mLs into the vein Daily. [START ON 09/16/2019] HYDROcodone-acetaminophen (NORCO) 7.5-325 mg per tablet Take 1 ta blet by mouth every 8 hours as needed [...] tablet 1 polyethylene glycol (MIRALAX) packet Take 1 diluted packet by mouth Daily as needed for Constipation. 0 Polyethylene Glycol 3350 POWD Take 17 g by mouth Daily as needed for Constipation. polyvinyl alcohol (LIQUITEARS) 1.4% ophthalmic solution Place 2 drops into both eyes ev janae morning. predniSONE (DELTASONE) 10 mg tablet Take 10 mg by mouth Daily. Respiratory Therapy Supplies MISC Replacement O2 mask. [...] mLs into the vein 2 times daily. SPIRIVA HANDIHALER 18 MCG inhalation capsule Inhale 18 mcg into the lungs Daily. 3 UNABLE TO FIND Adult Pull ups, medium size 100 each 3 No current facility-administered medications for this visit. ALLERGIES Allergies Allergen Reactions Metronidazole GI Upset Flagyl [Metronidazole] Nausea And Vomiting and GI Upset Percocet [Oxycodone] Unknown Pregabalin Unknown Lyrica Sulfa Antibiotics Unknown FOLLOW-UP No follow-ups on file. Notes: 1. Parts of this documentwere created using [facility] EHR speech recognition software. As a resu lt, there may be unintended word spelling errors. Every attempt was made to correct the di ctation. 2. I, Dalton Link MD, personally provided the services described in this documen tation, as scribed by CRISTINA Mazariegos, in my presence, and it is both accurate an d complete. Dalton Link MD Chapito montoya in this encounter Plan of Treatment +--------+ + + + + | Date | Type | Specialty | Care Team | Description | +--------+ + + + + | 03/23/ | Office | Anticoagulation | García Harris, | | | 2019 | Visit | | [address] | | | | | | [place] | | | | | | [address] | | | | | | | | +--------+ + + + + | 04/11/ | Appointment | Radiology | Shawn Michael | | | 2020 | | | MD [address] | | | | | | [address] [place] | | | | | | [place] [address] | | | | | | [phone] | | | | | | | | +--------+ + + + + | 04/13/ | Office | Cardiology | Shawn Michael | | | 2020 | Visit | | MD [address] | | | | | | [address] [place] | | | | | | [place] [address] | | | | | | [phone] | | | | | | | | +--------+ + + + + documented as of this encounter Visit Diagnoses + + | Diagnosis | + + | Acute diverticulitis - Primary | + + | Sepsis, due to unspecified organism, unspecified whether acute organ dysfunction | | present (HCC) | + + | Generalized osteoarthritis Generalized osteoarthrosis, unspecified site | + + | termite inspector prescription opiate use | + + documented in this encounter Additional Health Concerns + + + + | Infection | Noted Time | Resolved Time | + + + + | Methicillin-resistant Staphylococcus aureus | 06/08/2019 9:39 AM | | | | PDT | | + + + + documented as of this encounter"
--- OUTSIDE RECORDS SUMMARY | ~2020-03-14 | XMS | Encounter Summary ---
Demographics + + + | Address | [address] | | | [place] [address] | + + + | Home Phone [...] Team Providers + +------+ + | Care Picture Framer Name | Role | Phone | [...] + | 03/06/ | Home Care | [facility] [place] | Jonel Lozano | CASE COMMUNICATION | | 2020 | Visit | [place] [address] | Radha, HAND INSPECTOR | | | | | [place] | [phone] | | | | | [address] | | | | | | [phone] | | | +--------+ + + + [...] [place] | | | | | | [id number] | | | | | | | | +--------+ + + + + | 04/11/ | Appointment | Radiology | Shawn Michael | | 2019 | | | MD Marcelino [address] | | | | | | [address] | | | | | | [place] [address] | | | | | | [phone] | | | | | | | | +--------+ + + + + | 04/13/ | Office | Cardiology | Andi Michaelehr | | | 2019 | Visit | | MD [address] | | | | | | [address] | | | | | | [place] [address] | | | | | | [phone] | | | | | | | [...]
--- OUTSIDE RECORDS SUMMARY | ~2020-03-14 | XMS | Encounter Summary ---
Demographics + + + | Address | [address] | | | [place] [address] | + + + | Home Phone [...] Team Providers + +------+ + | Care Administrative Manager Name | Role | Phone | [...] | +--------+ + + + + | 09/21/ | Home Care | [facility] [place] | Bernardo Souza | CASE COMMUNICATION | | 2018 | Visit | [place] [address] | DANN Schulz | | | | | [place] | | | | | | [address] | | | | | | [phone] | | | +--------+ + + + [...] | | | | | [place] [address] | | | | | | [phone] | | | | | | | | +--------+ + + + + | 04/13/ | Office | Cardiology | Shawn Michael | | | 2019 | Visit | | MD Marcelino [address] | | | | | | [address] | | | | | | [place] [address] | | | | | | [phone] | | | | | | | [...]
--- OUTSIDE RECORDS SUMMARY | ~2020-03-14 | XMS | Encounter Summary ---
Demographics + + + | Address | [address] | | | [place] [address] | + + + | Home Phone [...] Team Providers + +------+ + | Care Churn Drill Operator Name | Role | Phone | [...] + + | 01/31/ | Telephone | [facility] [place] | Janel, | Care Coordination | | 2020 | | [facility] | Brittany Schulz RN | | | | | [address] | | | | | | [address] [place] | | | | | | [place] [address] | | | | | | [phone] | | | +--------+ + + + [...] | | 2019 | Visit | | DIRECTOR OF PUBLIC SAFETY [address] | | | | | | [place] | | | | | | [address] | | | | | | | | +--------+ + + + + | 04/11/ | Appointment | Radiology | Shawn Michael | | 2019 | | | MD [address] | | | | | | [address] [place] | | | | | | [place] [address] | | | | | | [phone] | | | | | | | | +--------+ + + + + | 04/13/ | Office | Cardiology | Shawn Michael | | 2019 | Visit | | MD [address] | | | | | | [address] [place] | | | | | | [place] [address] | | | | | | [phone] | | | | | | | [...]
--- OUTSIDE RECORDS SUMMARY | ~2020-03-14 | XMS | Encounter Summary ---
Demographics + + + | Address | [address] | | | [place] [address] | + + + | Home Phone | | + + + | Preferred Language | Unknown | + + + | Marital Status | | + + + | Mormon Affiliation | Unknown | + + + | Race | Unknown | + + + | Ethnic Group | Unknown | + + + Author + + + | Author | [facility] | | | and [place] | + + + | Organization | [facility] | | [...] Team Providers + +------+ + | Care Oracle Soa Architect Name | Role | Phone | + [...] Visit | [place] [address] | CONVEYOR ATTENDANT [address] | | | | | [place] | [place] | | | | | [address] | [address] | | | | | [phone] | | | +--------+ + + + [...] | | 2019 | Visit | | ABAP DEVELOPER [address] | | | | | | [place] | | | | | | [address] | | | | | | | | +--------+ + + + + | 04/11/ | Appointment | Radiology | Shawn Michael | | | 2019 | | | MD [address] | | | | | | [address] [place] | | | | | | [place] [address] | | | | | | [phone] | | | | | | | | +--------+ + + + + | 04/13/ | Office | Cardiology | Shawn Michael | | | 2019 | Visit | | MD [address] | | | | | | [address] [place] | | | | | | [place] [address] | | | | | | [phone] | | | | | | | [...] | Problem: HH PT | | | CONVEYOR ATTENDANT worked on | | Description: | IMPAIRED [...] Fall | Problem: SHARED | | | CONVEYOR ATTENDANT educated pt on | | Prevention | [...]
--- OUTSIDE RECORDS SUMMARY | ~2020-03-14 | XMS | Encounter Summary ---
Demographics + + + | Address | [address] | | | [place] [address] | + + + | Home Phone | | + + + | Preferred Language | Unknown | + + + | Marital Status | | + + + | Restoration Affiliation | Unknown | + + + | Race | Unknown | + + + | Ethnic Group | Unknown | + + + Author + + + | Author | [facility] | | | and [place] | + + + | Organization | [facility] | | | [...] Providers + +------+ + | Care Barrel Driller Name | Role | Phone | + [...] [place] | | | | | | [address] | | | | | | [phone] | | | +--------+ + + + [...] | | 2019 | Visit | | TELE GROUT SEWER 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
--- OUTSIDE RECORDS SUMMARY | ~2020-03-14 | XMS | Encounter Summary ---
Demographics + + + | Address | [address] | | | [place] [address] | + + + | Home Phone | | + + + | Preferred Language | Unknown | + + + | Marital Status | | + + + | Yazidi Affiliation | Unknown | + + + [...] Providers + +------+ + | Care Supervisor Lump Room Name | Role | Phone | + [...] +--------+--------+ + + + + Encounter Details +--------+---------+ + + + | Date | Type | Department | Care Team | Description | +--------+---------+ + + + | 06/07/ | Surgery | [facility] | Edwin Stoddard MD | EGD | | 2019 | | [facility] | [address], [place] | | | | | [address] | [address] [place], [place] | | | | | [place], [place] | [address] | | | | | [address] | | | | | | [phone] | | | +--------+---------+ + + + [...] might be different fro m the original. [place] HOSPITALIST DISCHARGE SUMMARY Pt. 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 Fell ATHLETE MARKETING AGENT Was trying to sit on walker but [...] walk on Heart Disease CAD TAVR in [place] February 16, 2019 bioprosthetic complicated by moderate [...] with Coumadin (he had discussed with Dr De Jesus) 4th Dr Umanzor is gone this week [...] er as he spoke to her Prior [employer] [facility], discussed with son in room with patien t if clot and not anticoag risk of worsening of clot CVA CO etc... 5th Dr Pineda reviewed and says would stop Anticoag and I spoke with Dr Velazquez ([place]) and h trevor says stop Anticoag that these pressures not unexpected and I told patient this and her son and Dr Cochran office in [place] contacted for their opionion. Did stop Coumadin which is not therapeutic yet anyhow 6th I called Dr Teddy Cochran office and his office has Echo via [employer] but he was to call m e and did not. I called Dr Ayoub office and his office provided his pager, no reply yet to p aging him. Addendum (06/11/2019 18:44) Dr Ayoub not answer page so I paged again and am calling office number (now closed but hope to connect to small craft operator) Addendum (06/11/2019 19:00) Did reach Anna [phone] and she confirmed Mega pager number says now strategic communications manager is Dr Buck and that Doc will be paged and if not reply in 20 minutes call back and the will use cell. I provided by [employer] for call back. Addendum (06/11/2019 19:43) I had to call again and then they had Dr Buck call me during my 2nd cll and I told her t he gradients here and she said that is OK and not concerning for valve thombosis, I asked sh e call the son but she said [...] latter to get back to me Also ATHLETE MARKETING AGENT her Lasix was 20 mg daily not [...] chronic hypoxic respir failure on [place] O2 ATHLETE MARKETING AGENT 6th she says 2-3 liters at home. Today is 97% on 4 liters. Heme positive stool Hx of EGD for Schtazkis ring EGD Sept Dr Stoddard mild ring dilated, gastroparesis, gastritis PRBC once on Jun 02 4th son says had Colonoscopy due to bleeding 11 months ago and was clean, says her HGB filter tank tender nically prior to TAVR was around 10. 6th Colonoscopy (limited had poor prep) did see the area of concern and has severe divertic ulosis no bleeding no visible cancer and NOT need biopsy, did advance to the descending colo n. 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 Please see progress note and ATHLETE MARKETING AGENT medication list f or any discrepancies. PLEASE NOTE: ~ ATHLETE MARKETING AGENT carvedilol dose 6.25 mg BID (double what was ordered on admit); ~ Hydralazine therapy complete ATHLETE MARKETING AGENT; ~ docusate, fluticasone are PRN not scheduled ATHLETE MARKETING AGENT; ~ added several meds (Odum, eye drops, Brovana/Pulmicort nebs, tamsulosin); ~ pt [...] MD at the cardiac study Center in [facility]. Procedure was complicated with moderate perivalvu lar [...] regurgitation pre sent. MD Dr Teddy [facility] [place] [address] [phone] (Son has said Dr Cochran and Dr Ayoub in same office but the number below small craft operator did not kn ow of Dr Teddy Cochran) Dr Asha Ayoub [place] office [phone] press 5 and his pager is [phone] Dr Marcus Maguire [phone] (dot yaddendum tdnorefesh nownorefresh) (myla glaser) (myla sena is attestation for malnutrition) Plan Son says [...] Jun 16 and Jun 23 per EPIC Brenna was out on notes on file Most recent weight: Input [...] 11:am with Dr. Millan . Contact information: [address] [place] [phone] Condition: Patient being discharged with condition improved Greater than 30 minutes were spent on discharge and coordination of post-hospital care. (myla morton) Electronically signed by: Bruce Cochran MD, 06/12/2019 14:06 [facility] Reference. This is NOT part of [...] this chart may have been created with Digabit voice recognition software. Occasi onal wrong-word or [...] sent through Care Everywhere.Diverticulitis, Discharge Instructions for (Vincentian)Congestive Heart Failure (CHF), Left-Sided (Vincentian)doc umented in this encounter Medications at Time of Discharge + + + +---------+ + + | Medication | Sig | Dispensed | Refills | Start | End Date | | | | | | Date | | + + + +---------+ + + | brimonidine | Place 1 drop into | | 12 | 08/19/20 | | | (ALPHAGAN) 0.2% | both eyes 2 times | | | 19 | | | ophthalmic solution | daily. | | | | | + + + +---------+ + + | dorzolamide | Place 1 drop into | | 12 | 08//20 | | | (TRUSOPT) 2% | both [...] might be different fro m the original. [place] HOSPITALIST PROGRESS NOTE Patient: Ángela Crowley : 1930: Age: 88 y.o. MedRec: [id number] PCP: Kathleen Escobar MD Admission date: 05/31/2019 [...] and they said got the US by [employer] today and would have him call me after meeting. No call though by 450 pm and the number below no after hours service . Patient's son had told me prior that Dr Teddy Cochran was the person to contact but today h e said that Dr Ayoub to call. I called office (via [employer]) and his office gave me pager zoiesundar prajapati I just paged at 450 pm. I called [facility] and [employer] there says have Cardiac MRI but not [...] So we have Dr Umanzor and Dr De Jesus said anticoag and Dr Pineda and Dr Velazquez say NOT anticoagulate and discussed with sosa ent and son. Home to here from [place]. 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 Fell ATHLETE MARKETING AGENT Was trying to sit on walker but [...] walk on Heart Disease CAD TAVR in [place] February 16, 2019 bioprosthetic complicated by moderate [...] with Coumadin (he had discussed with Dr De Jesus) 4th Dr Umanzor is gone this week [...] er as he spoke to her Prior [employer] [place] area, discussed with son in room with patien t if clot and not anticoag risk of worsening of clot CVA CO etc... 5th Dr Pineda reviewed and says would stop Anticoag and I spoke with Dr Velazquez (Ting) and trevor says stop Anticoag that these pressures not unexpected and I told patient this and her son and Dr Cochran office in [place] contacted for their opionion. Did stop Coumadin which is not therapeutic yet anyhow 6th I called Dr Teddy Cochran office and his office has Echo via [employer] but he was to call e and did not. I called Dr Ayoub office and his office provided his pager, no reply yet to p aging him. Addendum (06/11/2019 18:44) Dr Ayoub not answer page so I paged again and am calling office number (now closed but hope to connect to small craft operator) Addendum (06/11/2019 19:00) Did reach Anna [phone] and she confirmed Mega pager number says now strategic communications manager is Dr Buck and that Doc will be paged and if not reply in 20 minutes call back and the will use cell. I provided by [employer] for call back. Addendum (06/11/2019 19:43) I [...] stopped by chinyere or Hospitalist and Dr Pindea told me earlier use ASA (Cardiology research [...] latter to get back to me Also ATHLETE MARKETING AGENT her Lasix was 20 mg daily not [...] chronic hypoxic respir failure on [place] O2 ATHLETE MARKETING AGENT 6th she says 2-3 liters at home. Today is 97% on 4 liters. Heme positive stool Hx of EGD for Schtazkis ring EGD Jun 07 Dr Stoddard mild ring dilated, gastroparesis, gastritis PRBC once on Jun 02 son says had Colonoscopy due to bleeding 11 months ago and was clean, says her HGB filter tank tender nically prior to TAVR was around 10. 6th Colonoscopy (limited had poor prep) did see the area of concern and has severe divertic ulosis no bleeding no visible cancer and NOT need biopsy, did advance to the descending colo n. 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 Please see progress note and ATHLETE MARKETING AGENT medication list f or any discrepancies. PLEASE NOTE: ~ ATHLETE MARKETING AGENT carvedilol dose 6.25 mg BID (double what was ordered on admit); ~ Hydralazine therapy complete ATHLETE MARKETING AGENT; ~ docusate, fluticasone are PRN not scheduled ATHLETE MARKETING AGENT; ~ added several meds (Odum, eye drops, Brovana/Pulmicort nebs, tamsulosin); ~ pt [...] shoulders) A. Post TAVR with 23 mm Edbaljeet Sapian S3 valve on 02/16/2019 by Asha Ayoub MD at the cardiac study Center in [facility]. Procedure was complicated with moderate perivalvu lar [...] regurgitation pre sent. MD Dr Teddy [facility] [address] [phone] (Son has said Dr Cochran and Dr Ayoub in same office but the number below small craft operator did not kn ow of Dr Teddy Cochran) Dr Asha Ayoub [place] office [phone] press 5 and his pager is [phone] Dr Marcus Maguire [phone] (dot meyaddendum tdnorefesh nownorefresh) (dot meyvent) (dot gaudencionutattana is attestation for malnutrition) Plan Son says [...] Jun 16 and Jun 23 per EPIC Brenna was out on 3rd (dot meyaddendum tdnorefesh nownorefresh) (dot meytime meycritical meysign) Bruce Cochran MD 06/12/2019 13:17 [facility] Objective Data Serial weights: Filed Weights: 05/31/19 [...] Bruce Cochran MD 81 mg at 06/12/19 0908 atorvaSTATin (LIPITOR) tablet 20 mg 20 mg [...] Nightly Keyur Carvajal MD 10 mg at 09/06/ 19 2100 carvedilol (COREG) tablet 6.25 mg 6.25 mg Oral BID Keyur Carvajal MD 6.25 mg at 0 06/12/19 09 cetirizine (zyrTEC) tablet 10 mg 10 mg Oral Daily Keyur Carvajal MD 10 mg at 9 906 dextrose 50% injection 12.5-25 g 12.5-25 g Intravenous PRN Keyur Carvajal MD And dextrose 10% (D10W) infusion Intravenous Continuous PRN Keyur Carvajal MD dicyclomine (BENTYL) capsule 10 mg 10 mg Oral Daily Bruce Cochran MD 10 mg at 04/23 09 docusate sodium (COLACE) capsule 100 mg 100 mg Oral BID PRN Keyur Carvajal MD docusate sodium (COLACE) capsule 200 mg 200 mg Oral Daily Keyur Carvajal MD 200 mg a t 06/12/19907 dorzolamide (TRUSOPT) 2% ophthalmic solution 1 drop 1 drop Both Eyes BID Keyur Carvajal MD 1 drop at 06/12/19 09 ferrous sulfate tablet 325 mg 325 mg Oral Daily with breakfast Keyur Carvajal MD 325 mg at 06/12/19 09 fluticasone (FLONASE) 50 mcg/nasal spray 1 spray 1 spray Nasal Daily Keyur Carvajal MD 1 spray at 06/12/19 09 fluticasone (FLONASE) 50 mcg/nasal spray 2 spray 2 spray Each Nare BID PRN Félix rizzo MD 2 spray at 06/11/192099 furosemide (LASIX) tablet 20 mg 20 mg Oral Daily Bruce Cochran MD 20 mg at 9 906 HYDROcodone-acetaminophen (NORCO) 5-325 mg per tablet 1-2 tablet 1-2 tablet Oral Q4H P RN Keyur Carvajal MD 2 tablet at 06/12/19 1036 insulin lispro (humaLOG KWIKPEN) injection (pen) 0-12 Units 0-12 Units Subcutaneous 4x Daily and Keyur Carvajal MD 4 Units at 06/11/19 [...] Bruce Cochran MD 17 g at 06/12/19 0912 predniSONE (DELTASONE) tablet 10 mg 10 mg [...] 10% Hematology and anemia Recent Labs Lab 06/12/19 0622 06/11/19 0633 06/10/19 0516 06/08/19 0447 06/07/19 0427 06/06/19 0413 WBC 11.0 12.2* 8.1 < [...] for input(s): IRON, TIBC, PCTSAT, FERRITIN, TSH, [id number], FOLATE in the last 168 hours. Inflammatory markers Recent Labs Lab 06/07/1942606/06/19 1914 06/06/19 0807 06/06/19 0413 PROCALCITONI 8.62* 11.37* 17.89* 18.79* ESR -- -- -- 4 Chemistry Recent Labs Lab 06/12/1962106/11/1963206/10/19 0516 06/07/197 06/06/19 0413 GLU 78 79 82 < [...] this interval not displayed. Recent Labs Lab 06/07/19426 MG 1.9 No results for input(s): AMYLASE, LIPASE in the last 168 hours. No results for input(s): TRIG, CHOL, HDL, LDL in the last 168 hours. No results for input(s): AMMONIA in the last 168 hours. Cardiology & Digoxin Recent Labs Lab 09/07/19 0622 BNP 260* ABG No results for input(s): PHART, PO2ART, RPW0XPI, HHD2QTA, BEART, J7OWZBDO in the last 168 h ours. No results for input(s): SPECSOURCE, PHPOCB, PCO2, PO2, HCO3, TCO2, BEART, IMIV2HTU in the last 168 hours. Drug of [...] 1206 06/11/19 2105 06/11/19 1658 06/11/19 1209 06/10/19201406/10/19 1646 POCGLU 104 172* 230* 157* 137* 213* Micro results more choices using dot micro (below is last 7 days) Microbiology Results (Last 7) Date with Culture/Sensitivity) Procedure Component Value Units Date/Time Helicobactor pylori Biopsy [[id number]] (Normal) Collected: 06/07/19 0824 Order Status: Completed Lab Status: Final result Updated: 06/09/19 0915 Specimen: Tissue from Stomach, Antrum Helicobacter pylori Ag Negative Culture, Blood [[id number]] Collected: 06/06/19 0849 Order Status: Completed Lab Status: Final result Updated: 06/11/19 0851 Specimen: Peripheral Blood Culture No growth after 5 days incubation. Culture, Blood [[id number]] Collected: 06/06/19 0807 Order Status: Completed Lab Status: Final result [...] this chart may have been created with Digabit voice recognition software. Occasi onal wrong-word or sound-alike substitutions may have occurred due to the inherent owen itations of voice recognition software. Please read the chart carefully and recognize, using context, where these substitutions have occurred eyer, Bruce Coe MD - 06/11/2019 4:50 PM PDT [place] HOSPITALIST PROGRESS NOTE Patient: Ángela Crowley : 1930: Age: 88 y.o. MedRec: [id number] PCP: Kathleen Escobar MD Admission date: 05/31/2019 [...] and they said got the US by [employer] today and would have him call me after meeting. No call though by 450 pm and the number below no after hours service . Patient's son had told me prior that Dr Teddy Cochran was the person to contact but today victorina murray said that Dr Ayoub to call. I called office (via [employer]) and his office gave me pager karla prajapati I just paged at 450 pm. I called [facility] and [employer] there says have Cardiac MRI but not [...] So we have Dr Umanzor and Dr De Jesus said anticoag and Dr Pineda and Dr Velazquez say NOT anticoagulate and discussed with sosa ent and son. Home to here from [place]. 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 Fell ATHLETE MARKETING AGENT Was trying to sit on walker but [...] walk on Heart Disease CAD TAVR in [place] February 16, 2019 bioprosthetic complicated by moderate [...] with Coumadin (he had discussed with Dr De Jesus) 4th Dr Umanzor is gone this week [...] er as he spoke to her Prior [employer] [place] area, discussed with son in room with patikatharina t if clot and not anticoag risk of worsening of clot CVA CO etc... 5th Dr Pineda reviewed and says would stop Anticoag and I spoke with Dr Velazquez (Ting) and victorina murray says stop Anticoag that these pressures not unexpected and I told patient this and her son and Dr Cochran office in [place] contacted for their opionion. Did stop Coumadin which is not therapeutic yet anyhow 6th I called Dr Teddy Cochran office and his office has Echo via [employer] but he was to call m e [...] latter to get back to me Also ATHLETE MARKETING AGENT her Lasix was 20 mg daily not [...] chronic hypoxic respir failure on [place] O2 ATHLETE MARKETING AGENT 6th she says 2-3 liters at home. Today is 97% on 4 liters. Heme positive stool Hx of EGD for Schtazkis ring EGD Jun 07 Dr Stoddard mild ring dilated, gastroparesis, gastritis PRBC once on Jun 02 4th son says had Colonoscopy due to bleeding 11 months ago and was clean, says her HGB filter tank tender nically prior to TAVR was around 10. 6th Colonoscopy (limited had poor prep) did see the area of concern and has severe divertic ulosis no bleeding no visible cancer and NOT need biopsy, did advance to the descending colo n. 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 Please see progress note and ATHLETE MARKETING AGENT medication list f or any discrepancies. PLEASE NOTE: ~ ATHLETE MARKETING AGENT carvedilol dose 6.25 mg BID (double what was ordered on admit); ~ Hydralazine therapy complete ATHLETE MARKETING AGENT; ~ docusate, fluticasone are PRN not scheduled ATHLETE MARKETING AGENT; ~ added several meds (Odum, eye drops, Brovana/Pulmicort nebs, tamsulosin); ~ pt [...] MD at the cardiac study Center in [facility]. Procedure was complicated with moderate perivalvu lar [...] regurgitation pre sent. MD Dr Teddy Nova [facility] [place] [address] [phone] (Son has said Dr Cochran and Dr Ayoub in same office but the number below small craft operator did not kn ow of Dr Teddy Cochran) Dr sAha Ayoub [place] office [phone] press 5 and his pager is [phone] Dr Marcus Maguire [phone] (dot meyaddendum tdnorefesh nownorefresh) (dot meyvent) (dot malnutattest is attestation for malnutrition) Plan Dr Teddy Cochran not call me back Dr Ayoub paged CXR Still on Zosyn Miralax Carb controlled diet Addendum (06/11/2019 18:44) Dr Ayoub not answer page so I paged again and am calling office number (now closed but hope to connect to small craft operator) Addendum (06/11/2019 19:00) Did reach [place] [phone] and she confirmed Mega pager number says now strategic communications manager is Dr Buck and that Doc will be paged and if not reply in 20 minutes call back and the will use [employer]. I provided by [employer] for call back. Addendum (06/11/2019 19:43) I [...] 18:53) RN walked these over Son provided [phone] and I called twice and does not allow me to reach anyone Son provided [phone] Time spent with the patient (of which more than 50% was in counseling and/or coordination t he patient's care as outlined above) in minutes exceeded 50 minutes. Well now more than an hour, well more. Start following BNP HgBA1c with Jun 12 labs CM said prior that Dr Millan will be PCP Has appt Jun 16 and Jun 23 per GENNARO Ceja was out on 3rd (dot meyaddendum tdnorefesh nownorefresh) (dot meytime meycritical meysign) Bruce Cochran MD 06/11/2019 16:50 [facility] Objective Data Serial weights: Filed Weights: 05/31/19 [...] Daily Bruce Cochran MD 10 mg at 0903/24 0916 docusate sodium (COLACE) capsule 100 mg [...] Keyur Carvajal MD 10 mg at 03/24 0916 saliva substitute (BIOTENE ORALBALANCE DRY MOUTH) gel GEL Mouth/Throat Q30 Min PRN Angelo Carvajal MD senna (SENOKOT) tablet 8.6 mg 8.6 mg Oral BID PRN Keyur Carvajal MD tamsulosin (FLOMAX) capsule 0.4 mg 0.4 mg Oral Nightly Bruce Cochran MD 0.4 mg at 06/10/192009 Current Infusions: dextrose 10% Hematology and anemia Recent Labs Lab 06/11/19 0633 06/10/19 0516 06/09/19 0424 06/08/19 0447 06/07/19 04206/06/19 0413 WBC 12.2* 8.1 6.8 7.2 7.3 9.0 HGB 9.4* 8.7* 8.4* 8.4* 8.7* 8.7* HCT 30.3* 28.0* 27.3* 27.2* 28.3* 28.5* PLT 157 144 120* 121* 124* 132* NEUPCT -- -- -- 85.5* 80.0 86.9* Recent Labs Lab 06/11/19 0633 06/10/19 1039 06/08/19 0447 PROTIME 13.2 13.6 14.4* INR 1.0 1.1 1.1 No results for input(s): IRON, TIBC, PCTSAT, FERRITIN, TSH, [id number], FOLATE in the last 168 hours. Inflammatory markers Recent Labs Lab 06/07/1942606/06/19 1914 06/06/19 0807 06/06/193 PROCALCITONI 8.62* 11.37* 17.89* 18.79* ESR -- -- -- 4 Chemistry Recent Labs Lab 06/11/19 0633 06/10/19 0516 06/09/1942306/07/1942606/06/19412 GLU 79 82 88 97 113* NA [...] -- -- 15 15 Recent Labs Lab 06/07/19426 MG 1.9 No results for input(s): AMYLASE, LIPASE in the last 168 hours. No results for input(s): TRIG, CHOL, HDL, LDL in the last 168 hours. No results for input(s): AMMONIA in the last 168 hours. Cardiology & Digoxin No results for input(s): TROPONIN, CK, CKMB, BNP, DIGOXIN in the last 168 hours. Invalid input(s): CKTOTAL ABG No results for input(s): PHART, PO2ART, PZP1UZI, WYK0EFK, BEART, V2LBNTMQ in the last 168 h ours. No results for input(s): SPECSOURCE, PHPOCB, PCO2, PO2, HCO3, TCO2, BEART, [id number] in the last 168 hours. Drug of [...] Component Value Units Date/Time Helicobactor pylori Biopsy [[id number]] (Normal) Collected: 06/07/19 0824 Order Status: Completed Lab Status: Final result Updated: 06/09/19 0915 Specimen: Tissue from Stomach, Antrum Helicobacter pylori Ag Negative Culture, Blood [[id number]] Collected: 06/06/19 0849 Order Status: Completed Lab Status: Final result Updated: 06/11/19 0851 Specimen: Peripheral Blood Culture No growth after 5 days incubation. Culture, Blood [[id number]] Collected: 06/06/19 0807 Order Status: Completed Lab Status: Final result [...] this chart may have been created with [employer]iance recognition software. Occasi onal wrong-word or sound-alike substitutions may have occurred due to the inherent owen itations of voice recognition software. Please read the chart carefully and recognize, using context, where these substitutions have occurred eyer, Bruce Coe MD - 06/10/2019 12:42 PM PDT [place], [place] HOSPITALIST PROGRESS NOTE Patient: Ángela Crowley : 1930: Age: 88 y.o. MedRec: [id number] PCP: Kathleen Escobar MD Admission date: 05/31/2019 [...] I spoke to Dr Cochran office in [place] and he to call me back (Son [...] disorder Hypertension Moderate protein-calorie malnutrition Cerebral atherosclerosis MCFP (current) use of anticoagulants - clopidogrel (PLAVIX) COPD (chronic obstructive pulmonary disease) Pulmonary hypertension, mild Anemia Coronary artery disease involving [place] coronary artery of [place] heart without angina pectoris 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 Fell [employer] MARKET[employer]ENT Was trying to sit on walker but [...] walk on Heart Disease CAD TAVR in [place] February 16, 2019 bioprosthetic complicated by moderate [...] with Coumadin (he had discussed with Dr De Jesus) 4th Dr Umanzor is gone this week [...] er as he spoke to her Prior [employer] [place] area, discussed with son in room with patien t if clot and not anticoag risk of worsening of clot CVA CO etc... 5th Dr Pineda reviewed and says would stop Anticoag and I spoke with Dr Velazquez (Ting) and victorina murray says stop Anticoag that these pressures not unexpected and I told patient this and her son and Dr Cochran office in [place] contacted for their opionion. Did stop Coumadin [...] latter to get back to me Also [employer] MARKET[employer]ENT her Lasix was 20 mg daily not [...] chronic hypoxic respir failure on [place] O2 [employer] MARKET[employer]ENT Heme positive stool Hx of EGD for Schtazkis ring EGD Jun 07 Dr Stoddard mild ring dilated, gastroparesis, gastritis PRBC once on Jun 02 4th son says had Colonoscopy due to bleeding 11 months ago and was clean, says her HGB filter tank tender nically prior to TAVR was around 10. 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 Please see progress note and [employer] medication list f or any discrepancies. PLEASE NOTE: ~ [employer] MARK[employer]ENT carvedilol dose 6.25 mg BID (double what was ordered on admit); ~ Hydralazine therapy complete [employer] MARK[employer]ENT; ~ docusate, fluticasone are PRN not scheduled [employer] MARKET[employer] AGENT; ~ added several meds (Odum, eye drops, Brovana/Pulmicort nebs, tamsulosin); ~ pt [...] MD at the cardiac study Center in [facility]. Procedure was complicated with moderate perivalvu lar [...] regurgitation pre sent. MD Dr Teddy [facility] [place] [address] [phone] Dr Asha Velazquez [phone] (dot meyaddendum tdnorefesh nownorefresh) (dot meyvent) (dot malnutattest is attestation for malnutrition) Plan Spoke with Dr Edwin Stoddard Patient, office of Dr Teddy mg and Son and of course patient Dr [...] CM says Dr Millan will be PCP Ceja was out on 3rd From Prior Dr Jarrell not in office when I called to ask when followup CT should be considered (colon issue and pancreatic issue) and I discussed concerns with patient Post op shoe is optional Addendum (06/10/2019 11:16) Added to this note but not seen her yet (dot meyaddendum tdnorefesh nownorefresh) (dot meytime meycritical meysign) Bruce Cochran MD 06/10/2019 12:42 [facility] Objective Data Serial weights: Filed Weights: 05/31/19 [...] Keyur Carvajal MD 3 mL at 06/09/19 2121 ALPRAZolam (XANAX) tablet 0.25 mg 0.25 mg [...] Keyur wallace MD 1 drop at 06/10/19 103 budesonide (PULMICORT) nebulizer solution 0.5 mg 0.5 mg Nebulization RT BID Keyur wallace MD 0.5 mg at 06/09/19 212 busPIRone (BUSPAR) tablet 10 mg 10 mg Oral Nightly Keyur Carvajal MD 10 mg at 2146 carvedilol (COREG) tablet 6.25 mg 6.25 mg Oral BID WC Keyur Carvajal MD 6.25 mg at 0 06/10/19 08 cetirizine (zyrTEC) tablet 10 mg 10 mg Oral Daily Keyur Carvajal MD 10 mg at 9 08 dextrose 50% injection 12.5-25 g 12.5-25 g Intravenous PRN Keyur Carvajal MD And dextrose 10% (D10W) infusion Intravenous Continuous PRN Keyur Carvajal MD dicyclomine (BENTYL) capsule 10 mg 10 mg Oral Daily Bruce Cochran MD 10 mg at 02/21 0817 docusate sodium (COLACE) capsule 100 [...] 1 drop 1 drop Both Eyes Nightly Kyeur Carvajal MD 1 drop at 06/09/19 2151 [...] Nightly Bruce Cochran MD 0.4 mg at 06/09/19 2147 Current Infusions: dextrose 10% Hematology and anemia [...] for input(s): IRON, TIBC, PCTSAT, FERRITIN, TSH, [id number], FOLATE in the last 168 hours. Inflammatory [...] interval not displayed. Recent Labs Lab 06/07/19 042 MG 1.9 No results for input(s): AMYLASE, LIPASE in the last 168 hours. No results for input(s): TRIG, CHOL, HDL, LDL in the last 168 hours. No results for input(s): AMMONIA in the last 168 hours. Cardiology & Digoxin No results for input(s): TROPONIN, CK, CKMB, BNP, DIGOXIN in the last 168 hours. Invalid input(s): CKTOTAL ABG No results for input(s): PHART, PO2ART, FJT1RED, IYM0DRI, BEART, L9SLLFQS in the last 168 h ours. No results for input(s): SPECSOURCE, PHPOCB, PCO2, PO2, HCO3, TCO2, BEART, APWH0WAQ in the last 168 hours. Drug of [...] Component Value Units Date/Time Helicobactor pylori Biopsy [[id number]] (Normal) Collected: 06/07/19 0824 Order Status: Completed Lab Status: Final result Updated: 06/09/1915 Specimen: Tissue from Stomach, Antrum Helicobacter pylori Ag Negative Culture, Blood [[id number]] Collected: 06/06/19 0849 Order Status: Completed Lab Status: Preliminary result Updated: 06/09/19 0851 Specimen: Peripheral Blood Culture No growth: Monitored continually by instrument for 5 days Culture, Blood [[id number]] Collected: 06/06/19 0807 Order Status: Completed Lab Status: Preliminary result Updated: 06/09/19 0811 Specimen: Blood from Line Culture No growth: Monitored continually by instrument for 5 days Culture, MRSA [[id number]] Collected: 06/04/19 1329 Order Status: Completed Lab Status: Final result Updated: 06/05/19 0730 Specimen: Tissue from Nares Culture 3+ Staphylococcus aureus,Methicillin resistant (MRSA) Comment: *INFECTION PREVENTION ALERT - MRSA* CONTACT PRECAUTIONS REQUIRED. Culture, Blood [[id number]] Collected: 06/04/19 1154 Order Status: Completed Lab Status: Final result Updated: 06/09/19 1211 Specimen: Peripheral Blood Culture No growth after 5 days incubation. Culture, Blood [[id number]] Collected: 06/04/19 1154 Order Status: Completed Lab [...] this chart may have been created with [employer] voice recognition software. Occasi onal wrong-word or sound-alike substitutions may have occurred due to the inherent owen itations of voice recognition software. Please read the chart carefully and recognize, using context, where these substitutions have occurred eyer, Bruce Coe MD - 06/09/2019 8:31 PM PDT [facility] HOSPITALIST PROGRESS NOTE Patient: Ángela Crowley : 1930: Age: 88 y.o. MedRec: [id number] PCP: Kathleen Escobar MD Admission date: 05/31/2019 [...] disorder Hypertension Moderate protein-calorie malnutrition Cerebral atherosclerosis MCFP (current) use of anticoagulants - clopidogrel (PLAVIX) COPD (chronic obstructive pulmonary disease) Pulmonary hypertension, mild Anemia Coronary artery disease involving [place] coronary artery of [place] heart without angina pectoris 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 Fell [employer] Was trying to sit on walker but was not locked and fell back and had foot pain 4th xray on May 31 showed possible non displaced fracture involving the base of the 2nd p roximal phalanx extending to the MTP joint LEFT. ER Doc at admit aware as was admitter. Heart Disease CAD TAVR in [place] February 16, 2019 bioprosthetic complicated by moderate [...] with Coumadin (he had discussed with Dr De Jesus) 4th Dr Umanzor is gone this week [...] er as he spoke to her Prior [employer] [place] area, discussed with son in room with patien t if clot and not anticoag risk of worsening of clot CVA CO etc... 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 Please see progress note and [employer] medication list f or any discrepancies. PLEASE NOTE: ~ A[employer] MARKET[employer] AGENT carvedilol dose 6.25 mg BID (double what was ordered on admit); ~ Hydralazine therapy complete [employer]; ~ docusate, fluticasone are PRN not scheduled [employer] AGENT; ~ added several meds (Odum, eye drops, Brovana/Pulmicort nebs, tamsulosin); ~ pt [...] MD at the cardiac study Center in [facility]. Procedure was complicated with moderate perivalvu lar [...] regurgitation pre sent. MD Dr Teddy [facility] [place] [address] [phone] Dr Asha Velazquez [phone] (dot meyaddendum tdnorefesh nownorefresh) (dot meyvent) (dot gaudencionutattana is attestation for malnutrition) Plan Wants Home O2 from local DME and would need HH Dr Pineda to get back to me regarding imaging of TAVR (CT vs MR) likely cannot do here Discussed consideration for transfer if can justify for further workup Son and Patient say NO to SNF CM says Dr Millan will be PCP Brenna was out on 3rd From Prior Dr Jarrell not in office [...] meycritical meysign) Bruce Cochran MD 06/09/2019 20:31 [facility] Objective Data Serial weights: Filed Weights: 05/31/19 [...] Bruce Cochran MD 0.4 mg at 06/08/19 2154 warfarin (COUMADIN) tablet 2 mg 2 mg Oral Daily - Warfarin Keyur Carvajal MD 2 mg at 06/09/19 1756 Current Infusions: dextrose 10% Hematology and anemia Recent Labs Lab 06/09/19 0424 06/08/19 0447 06/07/19 0427 06/06/19 0413 WBC 6.8 7.2 7.3 9.0 HGB 8.4* 8.4* 8.7* 8.7* HCT 27.3* 27.2* 28.3* 28.5* PLT 120* 121* 124* 132* NEUPCT -- 85.5* 80.0 86.9* Recent Labs Lab 06/08/19446 PROTIME 14.4* INR 1.1 No results for input(s): IRON, TIBC, PCTSAT, FERRITIN, TSH, [id number], FOLATE in the last 168 hours. Inflammatory markers Recent Labs Lab 06/07/1942606/06/19 1914 06/06/19 0807 06/06/193 PROCALCITONI 8.62* 11.37* 17.89* 18.79* ESR -- -- -- 4 Chemistry Recent Labs Lab 06/09/1942306/07/1942606/06/1941206/04/19 1154 GLU 88 97 113* < > [...] this interval not displayed. Recent Labs Lab 06/07/19426 MG 1.9 No results for input(s): AMYLASE, LIPASE in the last 168 hours. No results for input(s): TRIG, CHOL, HDL, LDL in the last 168 hours. No results for input(s): AMMONIA in the last 168 hours. Cardiology & Digoxin No results for input(s): TROPONIN, CK, CKMB, BNP, DIGOXIN in the last 168 hours. Invalid input(s): CKTOTAL ABG No results for input(s): PHART, PO2ART, EIW7CAQ, USJ2YZQ, BEART, P4QCODIZ in the last 168 h ours. No results for input(s): SPECSOURCE, PHPOCB, PCO2, PO2, HCO3, TCO2, BEART, PMNM1MMB in the last 168 hours. Drug of [...] Lab 06/09/19 1758 06/09/19 1215 06/09/19 0701 06/08/19 2209 06/08/19 1715 06/08/19 1127 POCGLU 161* 139* 81 112* 125* 135* Micro results more choices using dot micro (below is last 7 days) Microbiology Results (Last 7) Date with Culture/Sensitivity) Procedure Component Value Units Date/Time Helicobactor pylori Biopsy [[id number]] (Normal) Collected: 06/07/19 0824 Order Status: Completed Lab Status: Final result Updated: 06/09/19 0915 Specimen: Tissue from Stomach, Antrum Helicobacter pylori Ag Negative Culture, Blood [[id number]] Collected: 06/06/19 0849 Order Status: Completed Lab Status: Preliminary result Updated: 06/09/19 0851 Specimen: Peripheral Blood Culture No growth: Monitored continually by instrument for 5 days Culture, Blood [[id number]] Collected: 06/06/19 0807 Order Status: Completed Lab Status: Preliminary result Updated: 06/09/19 0811 Specimen: Blood from Line Culture No growth: Monitored continually by instrument for 5 days Culture, MRSA [[id number]] Collected: 06/04/19 1329 Order Status: Completed Lab Status: Final result Updated: 06/05/19 0730 Specimen: Tissue from Nares Culture 3+ Staphylococcus aureus,Methicillin resistant (MRSA) Comment: *INFECTION PREVENTION ALERT - MRSA* CONTACT PRECAUTIONS REQUIRED. Culture, Blood [[id number]] Collected: 06/04/19 1154 Order Status: Completed Lab Status: Final result Updated: 06/09/19 1211 Specimen: Peripheral Blood Culture No growth after 5 days incubation. Culture, Blood [[id number]] Collected: 06/04/19 1154 Order Status: Completed Lab [...] this chart may have been created with [employer] voice recognition software. Occasi onal wrong-word or sound-alike substitutions may have occurred due to the inherent owen itations of voice recognition software. Please read the chart carefully and recognize, using context, where these substitutions have occurred eyer, Bruce Coe MD - 06/08/2019 4:45 PM PDT [place], [place] HOSPITALIST PROGRESS NOTE Patient: Ángela Crowley : 1930: Age: 88 y.o. 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 Please see progress note and [employer] medication list f or any discrepancies. PLEASE NOTE: ~ A[employer] MARK[employer] AGENT carvedilol dose 6.25 mg BID (double what was ordered on admit); ~ Hydralazine therapy complete [employer] MARK[employer] AGENT; ~ docusate, fluticasone are PRN not scheduled A[employer] MARK[employer] AGENT; ~ added several meds (Odum, eye drops, Brovana/Pulmicort nebs, tamsulosin); ~ pt [...] need O2 home test here ordered on (late) Will need home health Will need [...] meycritical meysign) Bruce Cochran MD 06/08/2019 16:45 [facility] Objective Data Serial weights: Filed Weights: 05/31/19 [...] for input(s): IRON, TIBC, PCTSAT, FERRITIN, TSH, [id number], FOLATE in the last 168 hours. Inflammatory markers Recent Labs Lab 06/07/1942606/06/19191306/06/19 0807 06/06/19 0413 06/02/19 191 PROCALCITONI 8.62* 11.37* 17.89* 18.79* < > <0.05 CRP -- -- -- -- -- 26.80* ESR -- -- -- 4 -- 10 < > = values in this interval not displayed. Chemistry Recent Labs Lab 06/07/19 0427 06/06/19 0413 06/05/19 0604 06/04/19 1154 GLU 97 113* 105 [...] ABG No results for input(s): PHART, PO2ART, XXQ1ROF, DSQ0VFG, BEART, H8ETALBW in the last 168 h ours. No results for input(s): SPECSOURCE, PHPOCB, PCO2, PO2, HCO3, TCO2, BEART, AQJV4BFA in the last 168 hours. Drug of [...] Component Value Units Date/Time Helicobactor pylori Biopsy [[id number]] Collected: 06/07/19 0824 Order Status: Sent Lab Status: In process Updated: 06/07/19844 Specimen: Tissue from Stomach, Antrum Culture, Blood [[id number]] Collected: 06/06/19 0849 Order Status: Completed Lab Status: Preliminary result Updated: 06/06/192050 Specimen: Peripheral Blood Culture No growth: Monitored continually by instrument for 5 days Culture, Blood [[id number]] Collected: 06/06/19806 Order Status: Completed Lab Status: Preliminary result Updated: 06/06/192010 Specimen: Blood from Line Culture No growth: Monitored continually by instrument for 5 days Culture, MRSA [[id number]] Collected: 06/04/19 1329 Order Status: Completed Lab Status: Final result Updated: 06/05/19729 Specimen: Tissue from Nares Culture 3+ Staphylococcus aureus,Methicillin resistant (MRSA) Comment: *INFECTION PREVENTION ALERT - MRSA* CONTACT PRECAUTIONS REQUIRED. Culture, Blood [[id number]] Collected: 06/04/19 1154 Order Status: Completed Lab Status: Preliminary result Updated: 06/07/19 121 Specimen: Peripheral Blood Culture No growth: Monitored continually by instrument for 5 days Culture, Blood [[id number]] Collected: 06/04/19 115 Order Status: Completed Lab Status: Preliminary result Updated: 06/07/19 121 Specimen: Peripheral Blood Culture No growth: Monitored continually by instrument for 5 days Culture, Blood [[id number]] Collected: 06/02/191914 Order Status: Completed Lab Status: Final result Updated: 06/07/191920 Specimen: Peripheral Blood Culture No growth after 5 days incubation. Culture, Blood [[id number]] Collected: 06/02/191914 Order Status: Completed Lab Status: [...] this chart may have been created with [employer] voice recognition software. Occasi onal wrong-word or sound-alike substitutions may have occurred due to the inherent owen itations of voice recognition software. Please read the chart carefully and recognize, using context, where these substitutions have occurred Keyur Sharma MD - 06/07/2019 5:24 PM PDT [facility] Hospitalist Progress Note Ángela Crowley [...] a.m. stopping the hydrocortisone. 2. Type 2 CO versus NSTEMI Patient's troponin has trended to baseline from 05/31 value of 0.13. Patient had TAVR in 02/04 and would have had coronary angiography prior to procedure. We are continue to work on obtaining any results of coronary arteriography.She was referred for her TAVR from [facility] in [place] and medical records is working to try [...] that her hematocr it of the 8.5 06/06 likely represents some blood loss but not excessive. EGD did not show a bl eeding source. .I am going to initiate Coumadin at 2 mg daily and will follow Hemoccults.She will need Yunno at the time of discharge to have protimes shooting for an INR no greater than 2 [facility]. 5. Mild CHF Patient's BNP on admission [...] as outlined above. Keyur Carvajal 06/07/2019 17:24 [facility] Portions of this chart may have been created with [employer] voice recognition software. Occasi onal wrong-word or sound-alike substitutions may have occurred due to the inherent owen itations of voice recognition software. Please read the chart carefully and recognize, using context, where these substitutions have occurred Edwin Izaguirre MD - 06/07/2019 8:06 AM PDTPatient seen at 7:20 [...] Edwin Stoddard MD at 06/07/2019 8:09 AM PDTKeyur Carvajal MD - 10/2018 7:45 PM PDT [facility] Hospitalist Progress Note Ángela Crowley [...] have shown clinical improvement. 2. Type 2 CO versus NSTEMI Patient's troponin has trended to [...] but not excessive. We will proceed wi EGD as soon as stable. 5. Mild [...] she states she has recognized as tender. Sh trevor chronically has pain but believes it slightly [...] as outlined above. Keyur Carvajal 06/06/2019 19:45 [facility] Portions of this chart may have been created with [employer] voice recognition software. Occasi onal wrong-word or sound-alike substitutions may have occurred due to the inherent owen itations of voice recognition software. Please read the chart carefully and recognize, using context, where these substitutions have occurred arkerKeyur MD - 0 06/05/2019 7:53 PM PDT [facility] Hospitalist Progress Note Ángela Crowley [...] mg every 8 hours. 2. Type 2 CO versus NSTEMI Patient's troponin has trended to [...] as outlined above. Keyur Carvajal 06/06/2019 19:53 [facility] Portions of this chart may have been created with [employer] voice recognition software. Occasi onal wrong-word or sound-alike substitutions may have occurred due to the inherent owen itations of voice recognition software. Please read the chart carefully and recognize, using context, where these substitutions have occurred erAutumn serrano, Pharm D - 06/05/2019 12:45 PM PDT [...] medication list or bottles ? MAR from SNF facility: ? Doctor's office: ? Pharmacy list names: [facility] ? [place] State Prescription Monitoring Program ? [place] State Prescription Monitoring Program ? [employer] insurance reported information ? Care Everywhere ? Outside Information ? Other sources: Verbal interview with son, Yadiel, who manages patient's medications Vaccines up to date? Yes No Unsure Influenza x Pneumococcal x Tdap x Shingles x Noted medications discrepancies or medication-related issues: Dosage/Form/Frequency change: [employer] Medication: Prior to Admission Sig: Correct Dosage/Form: [...] mL by nebulization twice daily Per son, vacation guide instructed him to mix with Budesonide marcelino Budesonide 0.5 mg/2 mL neb marcelino 2 mL by nebulization twice daily Per son, vacation guide instructed him to mix with Arformoterol marcelino [...] Prior to Admission Sig: Patient taking differently [employer] AG[employer] as: Alprazolam 0.25 mg tab 1 tab [...] 1 tab by mouth daily 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 Best possible [employer]ENT medication list after pharmacy review: PT REPORTED TAKING NOT TAKING Medication Sig Last Dose Dispense Doc. Arciniega albuterol (VENTOLIN HFA) 90 mcg/puff inhaler Inhale 2 puffs into the lungs every 4 hours a s needed for Wheezing. Taking Alfrdeo Arciniega MD albuterol-ipratropium 2.5-0.5 mg/3 mL SOLN Take 3 mLs by nebulization every 4 hours as nee ded for Increased Work of Breathing. Not Taking Alfredo Arciniega MD ALPRAZolam (XANAX) 0.25 mg tablet Take 0.25 [...] by mouth daily (with breakfast). Taking Romina Arciniega MD fluticasone (FLONASE) 50 mcg/nasal spray 1 [...] daily as needed for Diarrhe a. Taking Alfredo Arciniega MD metoprolol succinate (TOPROL-XL) 25 mg 24 hr tablet Take 25 mg by mouth nightly. Taking H istorical MD Demian mirabegron (MYRBETRIQ) 25 mg ER tablet Take 25 mg by mouth Daily. Taking Alfredo polo MD Multiple Vitamin (MULTIVITAMIN) tablet Take 1 tablet by mouth Daily. Taking Historical Pascual cox MD nitroglycerin (NITROSTAT) 0.[address] 0.4 mg under the tongue every 5 minutes a s needed for Chest pain. Taking Alfredo Arciniega MD pantoprazole (PROTONIX) 40 mg tablet Take 40 mg by mouth every morning (before breakfast). Taking Alfredo Arciniega MD Polyethylene Glycol 3350 POWD Take 17 g by mouth Daily as needed for Constipation. Taking Alfredo Arciniega MD polyvinyl alcohol (LIQUITEARS) 1.4% ophthalmic solution Place 1 drop into both eyes every morning. Taking Alfredo Arciniega MD predniSONE (DELTASONE) 10 mg tablet Take 10 mg by mouth Daily. Taking Historical MD manish Arciniega (SENNA) 8.6 mg tablet Take 1 tablet by mouth every morning. Taking Historical Jenni polo MD tamsulosin (FLOMAX) 0.4 mg CAPS Take 0.4 mg by mouth nightly. Taking Douglas Kumar MD tiotropium (SPIRIVA) 18 mcg inhalation capsule Inhale 18 mcg into the lungs Daily. Taking Historical MD Demian Medication review performed and electronically signed by Ly Guido, Core Winder 11:34 Reviewed by Autumn Sutherland, PharmD 06/05/2019 12:28 Rosio Wilson R N - 06/04/2019 8:38 PM PDTPicc [...] Keyur Carvajal MD at 06/04/2019 3:43 PM PDTParker, Keyur Murray MD - 06/04/2019 11:2 9 AM PDT [facility] PMG Hospitalist Progress Note Ángela Crowley [...] improves with this . 2. Type 2 CO versus NSTEMI Patient's troponin has trended to [...] as outlined above. Keyur Carvajal 06/04/2019 11:29 [facility] Portions of this chart may have been created with [employer] voice recognition software. 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 Procedure was complicated with modera te perivalvular [...] is i n a class I of [place] [employer] functional class. There is no fluid retention on physical examination. 2. Coronary artery disease A. Left heart cath in [facility] on 02/16/2019 suggest noncritical CAD. However, r eport is not available. B. Troponin earlier was elevated at 0.13, however, patient has no chest pain no evidence of heart failure. C. She is treated appropriately with combination of aspirin, statin and beta-barbara. 3. Essential hypertension A. Blood pressure this morning is well controlled. 4. Anemia with GI bleeding A. She was admitted to [place] on 05/31/2019 because of falls and feeling [...] is conrad red from GI bleeding standpoint. I, Kerri Sethi, am acting as a scribe on behalf of, and in the presence of Clint durham MD. I have reviewed and edited this note. Kerri Sethi CMA 06/04/2019 Clint Chery MD, personally performed the services described in this documentation, as scribed in my presence and it is both accurate and complete. Clint Jovel MD [facility] 06/04/2019 8:10 Portions of this chart may have been created with [employer] voice recognition software. Occasi onal wrong-word or sound-alike substitutions may have occurred due to the inherent owen itations of voice recognition software. Please read the chart carefully and recognize, using context, where these substitutions have occurred. Keyur Sharma MD - 06/03/2019 9:28 PM PDT [facility] PMG Hospitalist Progress Note Ángela Crowley is a 88 y.o. female ASSESSMENT and PLAN: 1. Type 2 CO versus NSTEMI Patient's troponin has trended to baseline from 05/31 value of 0.13. Patient had TAVR in 02/04 and would have had coronary angiography prior to procedure. [facility] queried today and has no record of this. She was referred from [facility] [place] Cochran) and will contact the m in [...] hours) at 06/03/20192129 Last data filed at 06/03/20192040 Gross per 24 hour Intake 860 ml [...] as outlined above. Keyur Carvajal 06/03/2019 21:30 [facility] Portions of this chart may have been created with [employer] voice recognition software. Occasi onal wrong-word or sound-alike substitutions may have occurred due to the inherent owen itations of voice recognition software. Please read the chart carefully and recognize, using context, where these substitutions have occurred arker, Keyur Murray MD - 0 06/02/2019 6:23 PM PDT [facility] PMG Hospitalist Progress Note Ángela Crowley is a 88 y.o. female ASSESSMENT and PLAN: 1. Type 2 CO versus NSTEMI Patient's troponin has really turned [...] blood cultures. Coronary angiography was requested from [facility] but this compon ent was not received. [...] Intake/Output Summary (Last 24 hours) at 06/02/2019 1823 Last data filed at 06/02/2019 1756 Gross [...] as outlined above. Keyur Carvajal 06/02/2019 18:23 [facility] Portions of this chart may have been created with Digabit voice recognition software. Occasi onal wrong-word or sound-alike substitutions may have occurred due to the inherent owen itations of voice recognition software. Please read the chart carefully and recognize, using context, where these substitutions have occurred arker, Keyur Murrya MD - 0 06/01/2019 6:47 PM PDT [facility] PMG Hospitalist Progress Note Ángela Crowley is a 88 y.o. female ASSESSMENT and PLAN: 1. Type 2 CO versus NSTEMI Patient's troponin has really turned [...] will try to obtain these records from [facility]. 2. Anemia. Patient has multiple etiologies. Hemoccults [...] for ÁNGELA CROWLEY ( ) as of 06/04/2019 12:52 Ref. [...] as outlined above. Keyur Carvajal 06/02/2019 18:47 [facility] Portions of this chart may have been created with Digabit voice recognition software. Occasi onal wrong-word or [...] | | 2019 | Visit | | [facility] [address] | | | | | | [place] | | | | | | [address] | | | | | | | | +--------+ + + + + | 04/11/ | Appointment | Radiology | Shawn Michael | | | 2019 | | | MD [address] | | | | | | [address] [place] | | | | | | [place] [address] | | | | | | [phone] | | | | | | | | +--------+ + + + + | 04/13/ | Office | Cardiology | Shawn Michael | | | 2019 | Visit | | MD [address] | | | | | | [address] [place] | | | | | | [place] [address] | | | | | | [phone] | | | | | | | [...] + +--------+ + + + | EXTRA ELVIRA TOP | Routin | 06/06/2019 | | [...] + +--------+ + + + | EXTRA SARBJITENDER TOP | Routin | 06/03/2019 | | [...] | + +--------+ + + + | OCULAR CARE AIDE REPORT - | | 02/16/2019 | | [...] [address] | [place] | [phone] | | [facility] | | [address] | | | - LABORATORY | | [...] [address] | [place] | [phone] | | [facility] | | [address] | | | - LABORATORY | | [...] | | | A1c | | | [facility] | | | | | | MEDICAL | | | | | | CENTER - | | | | | | LABORATORY | | + +-------+ + + + | Estimated | 117 | mg/dL | [facility] | | | Average | | | [facility] | | | Glucose | | | [...] + | [facility] | [address] | [place] | [phone] | | [facility] | | [address] | | | - LABORATORY | | [...] ST. | [address] | [place], [place] | [phone] | | [facility] | | [address] | | | - LABORATORY | | [...] mL/min/1.73m2 | [facility] | | | [facility] | RATE,ESTIMATED | | MEDICAL | | | | mL/min/1.35t6Dfus than | | CENTER - | | [...] 8.4 (L) | 8.7 - 10.4 | [facility] | | | | | mg/dL | [...] [address] | [place] | [phone] | | [facility] | | [address] | | | - LABORATORY | | [...] | | | | | M/uL | [facility] | | | | | | MEDICAL | | | | | | CENTER - | | | | | | LABORATORY | | + + + + + + | Hemoglobin | 9.5 (L) | 11.5 - 16.0 | [facility] | | | | | g/dL | . [facility] | | | | [...] + | [facility] | [address] | [place] | [phone] | | [facility] | | [address] | | | - LABORATORY | | [...] | [address] | [place] | [phone] | | [facility] | | [address] | | | - LABORATORY | | [...] + + | Performing | Address | City/State/[facility] | Phone Number | | Organization | [...] + | [facility] | [address] | [place] | [phone] | | [facility] | | [address] | | | - LABORATORY | | [...] ST. | [address] | [place], [place] | [phone] | | [facility] | | [address] | | | - LABORATORY | | | | + + + + + COLONOSCOPY (06/11/2019 7:45 AM PDT) + + | Specimen | + + | | + + + + -+ | Narrative | Performed At | + + -+ | | [facility] | | GastroenterologyPatient Name: Ángela Bermeorocedure Date: 06/11/2019 | [facility] | | 7:45 AMMRN: [id number] #: [id number] of : | | | 1930Admit Type: InpatientAge: 88Room: Endo Room 1Gender: | | | FemaleNote Status: FinalizedAttending MD: Edwin Stoddard , | | | MDProcedure: ColonoscopyIndications: Abnormal CT | | | of the GI tractProviders: Edwin Stoddard MD, Lorena Morrell, | | | RN, Ailin Bui, Medical Office Receptionist Assistant, Yahir Moy | | | MD Sravan [...] the anesthesiologist and the | | | behavioral technician in the endoscopy suite. Mental Status [...] AMScope Out: 8:12:08 AM | | | [facility], [address], [place] | | | [address] | | | - Stricture in the [...] |Scope Out: 8:12:08 AM | | | [facility], [address] [facility], [place], [place] | | | [address] | | + + -+ + +---------+ [...] | [address] | [place], [place] | [phone] | | [facility] | | [address] | | | - LABORATORY | | [...] | | GLOMERULAR FILTRATION | mL/min/1.73m2 | [facility] | | | [facility] | RATE,ESTIMATED | | MEDICAL | | | | mL/min/1.38k6Dpkj than | | CENTER - | | [...] + | BUN/Creatin | 21.1 | | [facility] | | | ine [...] [address] | [place] | [phone] | | [facility] | | [address] | | | - LABORATORY | | [...] | | | | | WBCs | . [facility] | | | | | | MEDICAL | | | | | | CENTER - | | | | | | LABORATORY | | + + + + + + | Absolute | 0.00 | 0.00 - 0.01 | [facility] | | | nRBC | | K/uL | . [facility] | | | | [...] + | [facility] | [address] | [place] | [phone] | | [facility] | | [address] | | | - LABORATORY | | [...] [address] | [place] | [phone] | | [facility] | | [address] | | | - LABORATORY | | [...] + | [facility] | [address] | [place] | [phone] | | [facility] | | [address] | | | - LABORATORY | | [...] | | POC | | | [facility] | | [...] + | [facility] | [address] | [place] | [phone] | | [facility] | | [address] | | | - LABORATORY | | [...] | | Time | | seconds | [facility] | | | | | | MEDICAL | | | | | | CENTER - | | | | | | LABORATORY | | + + + + + + | INR | 1.1Comment: Usual Oral | 0.9 - 1.1 | [facility] | | | | Anticoagulation Range: | | [facility] | | | | 2.0 [...] [address] | [place] | [phone] | | [facility] | | [address] | | | - LABORATORY | | [...] + | [facility] | [address] | [place] | [phone] | | [facility] | | [address] | | | - LABORATORY | | [...] mL/min/1.73m2 | [facility] | | | [facility] | RATE,ESTIMATED | | MEDICAL | | | | mL/min/1.87g8Lsao than | | CENTER - | | [...] [address] | [place] | [phone] | | [facility] | | [address] | | | - LABORATORY | | [...] | | | | M/uL | . [facility] | | | | | | MEDICAL | | | | | | CENTER - | | | | | | LABORATORY | | + + + + + + | Hemoglobin | 8.7 (L) | 11.5 - 16.0 | [facility] | | | | | g/dL | . [facility] | | | | [...] | | | | | g/dL | [facility] | | | | | [...] + | [facility] | [address] | [place] | [phone] | | [facility] | | [address] | | | - LABORATORY | | [...] [address] | [place] | [phone] | | [facility] | | [address] | | | - LABORATORY | | [...] [address] | [place] | [phone] | | [facility] | | [address] | | | - LABORATORY | | [...] + | [facility] | [address] | [place] | [phone] | | [facility] | | [address] | | | - LABORATORY | | [...] [address] | [place] | [phone] | | [facility] | | [address] | | | - LABORATORY | | [...] mL/min/1.73m2 | [facility] | | | [facility] | RATE,ESTIMATED | | MEDICAL | | | | mL/min/1.78u5Fhme than | | CENTER - | | [...] [address] | [place] | [phone] | | [facility] | | [address] | | | - LABORATORY | | [...] + | [facility] | [address] | [place] | [phone] | | [facility] | | [address] | | | - LABORATORY | | [...] [address] | [place] | [phone] | | [facility] | | [address] | | | - LABORATORY | | [...] [address] | [place] | [phone] | | [facility] | | [address] | | | - LABORATORY | | [...] + | [facility] | [address] | [place] | [phone] | | [facility] | | [address] | | | - LABORATORY | | [...] | + + + + + | [facility] | [address] | [place] | [phone] | | [facility] | | [address] | | | - LABORATORY | | [...] | | | | M/uL | . [facility] | | | | [...] [address] | [place] | [phone] | | [facility] | | [address] | | | - LABORATORY | | | | + + + + + Jeffime INR (06/08/2019 4:47 AM PDT) + + [...] [address] | [place] | [phone] | | [facility] | | [address] | | | - LABORATORY | | [...] | | | POC | | | [facility] | | | | | | [...] | + + + + + | [facility] | [address] | [place] | [phone] | | [facility] | | [address] | | | - LABORATORY | | [...] + | [facility] | [address] | [place] | [phone] | | [facility] | | [address] | | | - LABORATORY | | [...] + | [facility] | [address] | [place] | [phone] | | [facility] | | [address] | | | - LABORATORY | | [...] | [address] | [place], [place] | [phone] | | [facility] | | [address] | | | - LABORATORY | | [...] + | [facility] | [address] | [place] | [phone] | | [facility] | | [address] | | | - LABORATORY | | | | + + + + + POC Glucose (06/07/2019 8:19 AM PDT) + +-------+ + + + | Component | Value | Ref Range | Performed | Pathologist | | | | | At | Signature | + +-------+ + + + | Glucose, | 90 | 70 - 109 mg/dL | [facility] [...] [address] | [place] | [phone] | | [facility] | | [address] | | | - LABORATORY | | | | + + + + + EGD (06/07/2019 7:41 AM PDT) + + | Specimen | + + | | + + + + -+ | Narrative | Performed At | + + -+ | | [facility] | | GastroenterologyPatient Name: Ángela ClarosesProcedure Date: 06/07/2019 | [facility] | | 7:41 AMN: [id number] #: [id number] of : | | | 1930Admit Type: InpatientAge: 88Room: Endo Room 1Gender: | | | FemaleNote Status: FinalizedAttending MD: Edwin Stoddard , | | | MDProcedure: Upper GI endoscopyIndications: | | | Esophageal dysphagia, Occult blood in stoolProviders: | | | Edwin Stoddard MD, Ivett Alexandra RN, Marita | | | Stanley Phillip, Medical Office Receptionist Assistant, Hermilo Alcocer (Anesthesia | | | Staff)Medicines: [...] the anesthesiologist and the | | | behavioral technician in the endoscopy suite. Mental Status [...] AMScope Out: 8:29:07 | | | AM [facility], [address] [facility] | | | [place] [address] | | | the duodenum, area of [...] |Scope Out: 8:29:07 AM | | | [facility], [address] [facility], [place], [place] | | | [address] | | + + -+ + +---------+ [...] + | [facility] | [address] | [place] | [phone] | | [facility] | | [address] | | | - LABORATORY | | [...] | | | | | mmol/L | [facility] | | | | | | MEDICAL | | | | | | CENTER - | | | | | | LABORATORY | | + + + + + + | K | 2.7 (L) | 3.4 - 5.1 | [facility] | | | | | mmol/L | . [facility] | | | | [...] mL/min/1.73m2 | [facility] | | | [facility] | RATE,ESTIMATED | | MEDICAL | | | | mL/min/1.39y8Ewev than | | CENTER - | | [...] (L) | 3.2 - 4.8 g/dL | [facility] [...] [address] | [place] | [phone] | | [facility] | | [address] | | | - LABORATORY | | [...] in | Consistent with Previous | | [facility] | | | | Results | | [...] + | [facility] | [address] | [place] | [phone] | | [facility] | | [address] | | | - LABORATORY | | [...] | nRBC | | K/uL | [facility] | | | | [...] + + + + + | [facility] | [address] | [place] | [phone] | | [facility] | | [address] | | | - LABORATORY | | [...] + | [facility] | [address] | [place] | [phone] | | [facility] | | [address] | | | - LABORATORY | | [...] + | [facility] | [address] | [place] | [phone] | | [facility] | | [address] | | | - LABORATORY | | | | + + + + + Procalcitonin (06/06/2019 7:14 PM PDT) + + + + + + | Component | Value | Ref Range | Performed | Pathologist | | | | | At | Signature | + + + + + + | Procalciton | 11.37 ()Comment: | <=0.50 ng/mL | [facility] | | | in | Consistent with [...] [address] | [place] | [phone] | | [facility] | | [address] | | | - LABORATORY | | [...] + | [facility] | [address] | [place] | [phone] | | [facility] | | [address] | | | - LABORATORY | | [...] [address] | [place] | [phone] | | [facility] | | [address] | | | - LABORATORY | | [...] [address] | [place] | [phone] | | [facility] | | [address] | | | - LABORATORY | | [...] + | [facility] | [address] | [place] | [phone] | | [facility] | | [address] | | | - LABORATORY | | [...] in | Consistent with previous | | [facility] | | | | results. | [...] | [address] | [place] | [phone] | | [facility] | | [address] | | | - LABORATORY | | [...] + | [facility] | [address] | [place] | [phone] | | [facility] | | [address] | | | - LABORATORY | | | | + + + + + POC Glucose (06/06/2019 6:46 AM PDT) + +-------+ + + + | Component | Value | Ref Range | Performed | Pathologist | | | | | At | Signature | + +-------+ + + + | Glucose, | 105 | 70 - 109 mg/dL | [facility] [...] | [address] | [place] | [phone] | | [facility] | | [address] | | | - LABORATORY | | [...] | [address] | [place], [place] | [phone] | | [facility] | | [address] | | | - LABORATORY | | | | + + + + + Procalcitonin (06/06/2019 4:13 AM PDT) + + + + + + | Component | Value | Ref Range | Performed | Pathologist | | | | | At | Signature | + + + + + + | Procalciton | 18.79 ()Comment: | <=0.50 ng/mL | [facility] | [...] + | [facility] | [address] | [place], [place] | [phone] | | [facility] | | [address] | | | - LABORATORY | | [...] | | | | mmol/L | [facility] | | | | [...] | | | | mg/dL | [facility] | | | | | | MEDICAL | | | | | | CENTER - | | | | | | LABORATORY | | + + + + + + | eGFR if not | 59 (L)Comment: | >=60 | [facility] | | | | GLOMERULAR FILTRATION | mL/min/1.73m2 | [facility] | | | [facility] | RATE,ESTIMATED | | MEDICAL | | | | mL/min/1.95p1Ndle than | | CENTER - | | [...] [address] | [place] | [phone] | | [facility] | | [address] | | | - LABORATORY | | [...] | | | | | g/dL | [facility] | | | | [...] [address] | [place] | [phone] | | [facility] | | [address] | | | - LABORATORY | | [...] [address] | [place] | [phone] | | [facility] | | [address] | | | - LABORATORY | | [...] + | [facility] | [address] | [place] | [phone] | | [facility] | | [address] | | | - LABORATORY | | [...] + | [facility] | [address] | [place] | [phone] | | [facility] | | [address] | | | - LABORATORY | | | | + + + + + POC Glucose (06/05/2019 7:07 AM PDT) + +-------+ + + + | Component | Value | Ref Range | Performed | Pathologist | | | | | At | Signature | + +-------+ + + + | Glucose, | 107 | 70 - 109 mg/dL | [facility] [...] | [address] | [place] | [phone] | | [facility] | | [address] | | | - LABORATORY | | [...] | | Lavender | | | [facility] | | | Top Tube | [...] [address] | [place] | [phone] | | [facility] | | [address] | | | - LABORATORY | | [...] + | [facility] | [address] | [place] | [phone] | | [facility] | | [address] | | | - LABORATORY | | [...] [facility] | | | | | | [facility] | | | | | | MEDICAL | | | | | | CENTER - | | | | | | LABORATORY | | + + + + + + | Creatinine | 0.79 | 0.55 - 1.02 | [facility] | [...] mL/min/1.73m2 | [facility] | | | [facility] | RATE,ESTIMATED | | MEDICAL | | | | mL/min/1.43i4Qlpo than | | CENTER - | | [...] | | | | mg/dL | [facility] | | | | | | MEDICAL | | | | | | CENTER - | | | | | | LABORATORY | | + + + + + + | BUN/Creatin | 30.4 | | [facility] | | | ine [...] + | [facility] | [address] | [place] | [phone] | | [facility] | | [address] | | | - LABORATORY | | [...] + + + | K | 6.5 (HH)Comment: | 3.4 - 5.1 | [facility] | [...] mL/min/1.73m2 | [facility] | | | [facility] | RATE,ESTIMATED | | MEDICAL | | | | mL/min/1.69w9Icmo than | | CENTER - | | [...] + | [facility] | [address] | [place] | [phone] | | [facility] | | [address] | | | - LABORATORY | | [...] + | [facility] | [address] | [place] | [phone] | | [facility] | | [address] | | | - LABORATORY | | [...] ST. | [address] | [place] | [phone] | | [facility] | | [address] | | | - LABORATORY | | [...] ampullary mucinous neoplasms. The largest | | [id number] mm.Catheter in the bladder. No visible balloon. [...] | | | + +---------+ + + DONNA Atkinson (06/04/2019 1:29 PM PDT) + + + + + + | Component | Value | Ref Range | Performed | Pathologist | | | | | At | Signature | + + + + + + | Culture | 3+ Staphylococcus | | [facility] | | | | aureus,Methicillin | | [facility] | | | | resistant (MRSA)Comment: [...] + | [facility] | [address] | [place] | [phone] | | [facility] | | [id number] | | | - LABORATORY | | [...] - 1.030 | [facility] | | | [place], | | | [facility] | | [...] + | [facility] | [address] | [place], [place] | [phone] | | [facility] | | [id number] | | | - LABORATORY | | [...] | | [facility] | | | Neutrophils [...] | Bands | | K/uL | [facility] | [...] [address] | [place] | [phone] | | [facility] | | [id number] | | | - LABORATORY | | [...] not | 58 (L)Comment: | >=60 | [place] | | | | GLOMERULAR FILTRATION | mL/min/1.73m2 | [facility] | | | [facility] | RATE,ESTIMATED | | MEDICAL | | | | mL/min/1.51f0Gdvn than | | CENTER - | | [...] | | | | | mg/dL | [facility] | | | | | | [...] [address] | [place] | [phone] | | [facility] | | [address] | | | - LABORATORY | | [...] | | | | | | [facility] | | [...] + | [facility] | [address] | [place] | [phone] | | [facility] | | [address] | | | - LABORATORY | | [...] [address] | [place] | [phone] | | [facility] | | [address] | | | - LABORATORY | | [...] + | [facility] | [address] | [place] | [phone] | | [facility] | | [address] | | | - LABORATORY | | [...] | | | incubation. | | [facility] | | | [...] | [address] | [place], [place] | [phone] | | [facility] | | [address] | | | - LABORATORY | | [...] [address] | [place] | [phone] | | [facility] | | [address] | | | - LABORATORY | | [...] | + + + + + | [facility] | [address] | [place] | [phone] | | [facility] | | [address] | | | - LABORATORY | | [...] + | [facility] | [address] | [place] | [phone] | | [facility] | | [address] | | | - LABORATORY | | [...] | | | FILTRATION | mL/min/1.73m2 | [facility] | | | [place] | RATE,ESTIMATED | | MEDICAL | | | | mL/min/1.76k9Zrhd than | | CENTER - | | [...] | | | | | mg/dL | [facility] | | | | | | MEDICAL | | | | | | CENTER - | | | | | | LABORATORY | | + + + + + + | BUN/Creatin | 33.3 | | [facility] | | | ine Ratio | | | [facility] | | | | | | [...] [address] | [place] | [phone] | | [facility] | | [address] | | | - LABORATORY | | | | + + + + + POC Glucose (06/03/2019 10:03 PM PDT) + +-------+ + + + | Component | Value | Ref Range | Performed | Pathologist | | | | | At | Signature | + +-------+ + + + | Glucose, | 95 | 70 - 109 mg/dL | [facility] [...] + | [facility] | [address] | [place] | [phone] | | [facility] | | [address] | | | - LABORATORY | | [...] [address] | [place] | [phone] | | [facility] | | [address] | | | - LABORATORY | | [...] | | POC | | | [facility] | | | | | | [...] [address] | [place] | [phone] | | [facility] | | [address] | | | - LABORATORY | | [...] [address] | [place] | [phone] | | [facility] | | [address] | | | - LABORATORY | | [...] | | Lavender | | | [facility] | | | Top Tube | [...] [address] | [place] | [phone] | | [facility] | | [address] | | | - LABORATORY | | [...] ST. | [address] | [place], [place] | [phone] | | [facility] | | [address] | | | - LABORATORY | | [...] mL/min/1.73m2 | [facility] | | | [facility] | RATE,ESTIMATED | | MEDICAL | | | | mL/min/1.49z1Temx than | | CENTER - | | [...] + | [facility] | [address] | [place] | [phone] | | [facility] | | [address] | | | - LABORATORY | | [...] | | Blood in | | | [facility] | | | 1st | | | [...] + | [facility] | [address] | [place] | [phone] | | [facility] | | [address] | | | - LABORATORY | | [...] [address] | [place] | [phone] | | [facility] | | [address] | | | - LABORATORY | | [...] + | [facility] | [address] | [place] | [phone] | | [facility] | | [address] | | | - LABORATORY | | [...] ST. | [address] | [place], [place] | [phone] | | [facility] | | [address] | | | - LABORATORY | | [...] + | [facility] | [address] | [place] | [phone] | | [facility] | | [address] | | | - LABORATORY | | | | + + + + + C-Reactive Protein (06/02/2019 7:10 PM PDT) + + + + + + | Component | Value | Ref Range | Performed | Pathologist | | | | | At | Signature | + + + + + + | CRP | 26.80 (H) | <10.00 mg/L | [facility] | [...] [address] | [place] | [phone] | | [facility] | | [address] | | | - LABORATORY | | | | + + + + + Sedimentation Rate (06/02/2019 7:10 PM PDT) + +-------+ + + + | Component | Value | Ref Range | Performed | Pathologist | | | | | At | Signature | + +-------+ + + + | Erythrocyte | 10 | <30 mm/hr | [facility] | | | | | | [facility] | | | Sedimentati | | [...] [address] | [place] | [phone] | | [facility] | | [address] | | | - LABORATORY | | [...] | Use This Result | | [facility] | | | [...] + | [facility] | [address] | [place] | [phone] | | [facility] | | [address] | | | - LABORATORY | | [...] [address] | [place] | [phone] | | [facility] | | [address] | | | - LABORATORY | | | | + + + + + POC Glucose (06/02/2019 6:24 AM PDT) + +-------+ + + + | Component | Value | Ref Range | Performed | Pathologist | | | | | At | Signature | + +-------+ + + + | Glucose, | 82 | 70 - 109 mg/dL | [facility] [...] [address] | [place] | [phone] | | [facility] | | [address] | | | - LABORATORY | | [...] + | [facility] | [address] | [place] | [phone] | | [facility] | | [address] | | | - LABORATORY | | [...] | | | | | M/uL | [facility] | | | | | [...] | | Granulocyte | | | [facility] | | | s | | | MEDICAL | | | | | | CENTER - | | | | | | LABORATORY | | + + + + + + | Absolute | 4.23 | 1.80 - 8.50 | [facility] | | | Neutrophils | | K/uL | [facility] | | | | | [...] [address] | [place] | [phone] | | [facility] | | [address] | | | - LABORATORY | | | | + + + + + Red Blood Cells (PRBC) - Crossmatch (06/02/2019 12:03 AM PDT) + + + + + + | Component | Value | Ref Range | Performed | Pathologist | | | | | At | Signature | + + + + + + | Product | [id number] | | [facility] | | | Code | | | [facility] | | | | | | MEDICAL | | | | | | CENTER - | | | | | | BLOOD BANK | | + + + + + + | UNIT # | [id number] | | [facility] | | | | [...] | | Product | | | [facility] | | | ABORh | | | MEDICAL | | | | | | CENTER - | | | | | | BLOOD BANK | | + + + + + + | Blood | [id number] | | [facility] | | | Product | | | [facility] | | | Expiration | | | [...] St | [place] | | | [facility] | | [address] | | | - BLOOD BANK | [...] [address] | [place] | [phone] | | [facility] | | [address] | | | - LABORATORY | | | | + + + + + B Type Natriuretic Peptide (06/01/2019 10:00 PM PDT) + +---------+ + + + | Component | Value | Ref Range | Performed | Pathologist | | | | | At | Signature | + +---------+ + + + | BNP | 269 (H) | <100 pg/mL | [facility] | | | | | | [facility] | | | | | | [...] + | [facility] | [address] | [place] | [phone] | | [facility] | | [address] | | | - LABORATORY | | [...] 18 | 9 - 23 mg/dL | [facility] [...] | mL/min/1.73m2 | [facility] | | | [facility] | RATE,ESTIMATED | | MEDICAL | | | | mL/min/1.53r5Zorv than | | CENTER - | | [...] | | | | mg/dL | [facility] | | | | [...] [address] | [place] | [phone] | | [facility] | | [address] | | | - LABORATORY | | [...] ST. | [address] | [place] | | | [facility] | | [address] | | | - BLOOD BANK | [...] 5.0 | 4.0 - 11.0 K/uL | [facility] [...] Morgan | | MEDICAL | | | Randell Dowell RN on | | CENTER - | | | | 06/01/2019 at 21:33 by | | LABORATORY | | | | Medardo Main. | | | | + + + [...] [address] | [place] | [phone] | | [facility] | | [address] | | | - LABORATORY | | [...] [address] | [place] | [phone] | | [facility] | | [address] | | | - LABORATORY | | [...] [address] | [place] | [phone] | | [facility] | | [address] | | | - LABORATORY | | [...] [address] | [place] | [phone] | | [facility] | | [address] | | | - LABORATORY | | [...] method in use as of | | [facility] | | | | December 02, [...] [address] | [place] | [phone] | | [facility] | | [address] | | | - LABORATORY | | | | + + + + + Folate (06/01/2019 10:32 AM PDT) + +-------+ + + + | Component | Value | Ref Range | Performed | Pathologist | | | | | At | Signature | + +-------+ + + + | FOLATE | 14.1 | >5.4 ng/mL | [facility] | | [...] | [address] | [place], [place] | [phone] | | [facility] | | [address] | | | - LABORATORY | | | | + + + + + Vitamin B-12 (06/01/2019 10:32 AM PDT) + + + + + + | Component | Value | Ref Range | Performed | Pathologist | | | | | At | Signature | + + + + + + | VITAMIN | 333Comment: DEFICIENT: | 156 - 672 pg/mL | [facility] | | | B-12 | <145 | | [facility] | | | | pg/mLINDETERMINATE: | | [...] [address] | [place] | [phone] | | [facility] | | [address] | | | - LABORATORY | | [...] [address] | [place] | [phone] | | [facility] | | [address] | | | - LABORATORY | | [...] | | | | | | [facility] | | | | | + + [...] | | | | | | [facility] | | | | | + + [...] 89 | 70 - 109 mg/dL | [facility] [...] [address] | [place] | [phone] | | [facility] | | [address] | | | - LABORATORY | | [...] + | [facility] | [address] | [place] | [phone] | | [facility] | | [address] | | | - LABORATORY | | | | + + + + + CBC with Differential (06/01/2019 2:13 AM PDT) + + + + + + | Component | Value | Ref Range | Performed | Pathologist | | | | | At | Signature | + + + + + + | WBC | 6.4 | 4.0 - 11.0 K/uL | [facility] [...] | [address] | [place], [place] | [phone] | | [facility] | | [address] | | | - LABORATORY | | | | + + + + + Ferritin (06/01/2019 2:13 AM PDT) + +-------+ + + + | Component | Value | Ref Range | Performed | Pathologist | | | | | At | Signature | + +-------+ + + + | FERRITIN | 219 | 7 - 271 ng/mL | [facility] [...] [address] | [place] | [phone] | | [facility] | | [address] | | | - LABORATORY | | [...] | | | | | | [employer] | | | | | [...] [address] | [place] | [phone] | | [facility] | | [address] | | | - LABORATORY | | | | + + + + + Magnesium (06/01/2019 2:13 AM PDT) + +-------+ + + + | Component | Value | Ref Range | Performed | Pathologist | | | | | At | Signature | + +-------+ + + + | Magnesium | 2.0 | 1.6 - 2.6 mg/dL | [facility] | | | | | | [facility] [...] | + + + + + | [facility] | [address] | [place] | [phone] | | [facility] | | [address] | | | - LABORATORY | | [...] mL/min/1.73m2 | [facility] | | | [facility] | RATE,ESTIMATED | | MEDICAL | | | | mL/min/1.53r7Qvpu than | | CENTER - | | [...] [address] | [place] | [phone] | | [facility] | | [address] | | | - LABORATORY | | [...] associated prominence of the ventricles. There are kkba-jl-ohjryume | | | scattered regions of periventricular [...] associated prominence of the ventricles. There are [id number] | | scattered regions of periventricular and [...] + | [facility] | [address] | [place] | [phone] | | [facility] | | [address] | | | - LABORATORY | | | | + + + + + Troponin I (05/31/2019 7:59 PM PDT) + + + + + + | Component | Value | Ref Range | Performed | Pathologist | | | | | At | Signature | + + + + + + | Troponin I | 0.11 (H)Comment: | <0.06 ng/mL | [facility] | [...] | | | | | | [employer] | | | | | [...] [address] | [place] | [phone] | | [facility] | | [address] | | | - LABORATORY | | | | + + + + + CBC no Differential (05/31/2019 7:59 PM PDT) + + + + + + | Component | Value | Ref Range | Performed | Pathologist | | | | | At | Signature | + + + + + + | WBC | 7.7 | 4.0 - 11.0 K/uL | [facility] | | | | | | [facility] | | | | | | MEDICAL | | | | | | CENTER - | | | | | | LABORATORY | | + + + + + + | RBC | 2.75 (L) | 3.70 - 5.20 | [facility] | | | | | M/uL | [facility] | | | | [...] | nRBC | | K/uL | [facility] | | | | | | [...] [address] | [place] | [phone] | | [facility] | | [address] | | | - LABORATORY | | [...] mL/min/1.73m2 | [facility] | | | [facility] | | | MEDICAL | | | [...] | | Venous, POC | | | [facility] | [...] [address] | [place] | [phone] | | [facility] | | [address] | | | - LABORATORY | | [...] - 1.030 | [facility] | | | [place], | | | [facility] | | [...] Urine | Urine Culture Not | | [facility] | | | Comment | Indicated | | [facility] | | | [...] [address] | [place] | [phone] | | [facility] | | [address] | | | - LABORATORY | | [...] + | [facility] | [address] | [place] | [phone] | | [facility] | | [address] | | | - LABORATORY | | [...] | | | | mmol/L | [facility] | | | | | | [...] + | [facility] | [address] | [place] | [phone] | | [facility] | | [address] | | | - LABORATORY | | [...] | + + + + + | [facility] | [address] | [place] | [phone] | | [facility] | | [address] | | | - LABORATORY | | [...] | | | | | | [employer] | | | | | [...] [address] | [place] | [phone] | | [facility] | | [address] | | | - LABORATORY | | [...] [address] | [place] | [phone] | | [facility] | | [address] | | | - LABORATORY | | [...] use as of December 02, | | [facility] | | | | 2018. Check reference [...] + | [facility] | [address] | [place] | [phone] | | [facility] | | [address] | | | - LABORATORY | | [...] mL/min/1.73m2 | [facility] | | | [facility] | RATE,ESTIMATED | | MEDICAL | | | | mL/min/1.50y0Yxap than | | CENTER - | | [...] 8.3 (L) | 8.7 - 10.4 | [facility] | | | | | mg/dL | [...] + | BUN/Creatin | 18.6 | | [facility] | | | ine [...] [address] | [place] | [phone] | | [facility] | | [address] | | | - LABORATORY | | [...] + | [facility] | [address] | [place] | [phone] | | [facility] | | [address] | | | - LABORATORY | | | | + + + + + B Type Natriuretic Peptide (05/31/2019 2:07 PM PDT) + +---------+ + + + | Component | Value | Ref Range | Performed | Pathologist | | | | | At | Signature | + +---------+ + + + | BNP | 478 (H) | <100 pg/mL | [facility] | | | | | [...] | [address] | [place] | [phone] | | [facility] | | [address] | | | - LABORATORY | | [...] | | | | | | lateral CO age | | | | | | [...] | | | | LEONIDAS CALVO MD ([id number]) | | | | | | on [...] unspecified provider. | | + + + OCULAR CARE AIDE REPORT - EXTERNAL SCAN (02/16/2019 12:00 AM [...] dose on 05/31/19 at 2100 | | PM PDT | [...] | | | | First dose on [facility] 06/03/19 at 2100 | | | [...] CONTINUOUS PRN, hypoglycemia, | | | Starting 05/31/19 at 2003, | | | Start infusion [...] | | | DAILY, First dose on 05/31/19 [...] | | | | 05/31/19 at 1945, Aditya chaparro., | | | | | | + [...] | | | | | | 2219, Aditya chaparro., | | | | | | + [...] | | | | | | use Odum 10/325 if ordered. If | | | [...] | | | | | | | 3755-7917 Use NIGHT DOSE for | | | | | | | doses scheduled: HS, 3AM, | | | | | | | Nighttime 8340-0201 If the BG is | | | [...] | | | | | dose on [facility] 06/03/19 at 2100 | | | [...] -Right | | DAILY, First dose on Fri05/31/19 [...] medications/reasons PHARMACY | | | CONSULT, Starting [facility] 06/10/19 at | | | 1524, Pharmacy to consult for | | | another reason? The Vancomycin | | | Cochran ordered for 6 am on Friday | | | needs to be started at 6 am | | + +---+ | | | + +---+ + +-------+ +------+---+---+ | polyethylene glycol (MIRALAX) | Given | 06/12/20 | 17 g | | | | powder 17 g 17 g, Oral, DAILY, | | 19 9:12 | | | | | [facility] at 0900, | | AM PDT [...] | | | | | dose on Tu06/08/19 at 0900 | | AM PDT | [...] | + +---+ + +-------+ +--------+---+---+ | tamsulosin (FLOMAX) capsule [...]
--- OUTSIDE RECORDS SUMMARY | ~2020-03-14 | XMS | Encounter Summary ---
Demographics + + + | Address | [address] | | | [place] [address] | + + + | Home Phone [...] Providers + +------+ + | Care Sales Order Processor Name | Role | Phone | + [...] | +--------+ + + + + | 07/15/ | Home Care | [facility] [place] | Wanda Barbosa, | CASE COMMUNICATION | | 2019 | Visit | [place] [address] | [place] | | | | | [place] | | | | | | [address] | | | | | | [phone] | | | +--------+ + + + [...] | | | | | [place] [address] | | | | | | [phone] | | | | | | | | +--------+ + + + + | 04/13/ | Office | Cardiology | Shawn Michael | | | 2019 | Visit | | MD Marcelino [address] | | | | | | [address] | | | | | | [place] [address] | | | | | | [phone] | | | | | | | [...]
--- OUTSIDE RECORDS SUMMARY | ~2020-03-14 | XMS | Encounter Summary ---
Demographics + + + | Address | [address] | | | [place] [address] | + + + | Home Phone | | + + + | Preferred Language | Unknown | + + + | Marital Status | | + + + | Methodist Affiliation | Unknown | + + + | Race | Unknown | + + + | Ethnic Group | Unknown | + + + Author + + + | Author | [facility] | | | and [place] | + + + | Organization | [facility] | | [...] Team Providers + +------+ + | Care Cake Decorator Name | Role | Phone | + [...] + + + + | 07/06/ | Home Care | [facility] [place] | Bernardo Souza | OT REPEAT VISIT | | 2018 | Visit | [place] [address] | [place], [place] | | | | | [place] | | | | | | [address] | | | | | | [phone] | | | +--------+ + + + [...] + + + | Blood Pressure | 122/60 | 07/06/2019 11:18 AM | | | | | PDT | | + + + + + | Pulse | 74 | 07/06/2019 11:18 AM | | | | | PDT | | + + + + + | Temperature | 36.9 C (98.4 F) | 07/06/2019 11:18 AM | | | | | PDT | | + + + + + | Respiratory Rate | - | - | | + + + + + | Oxygen Saturation | 96% | 07/06/2019 11:18 AM | | | | | PDT [...] | | | | | [place] [address] | | | | | | [phone] | | | | | | | | +--------+ + + + + | 04/13/ | Office | Cardiology | Shawn Michael | | | 2019 | Visit | | MD Marcelino [address] | | | | | [address] [place] | | | | | | [place] [address] | | | | | | [phone] | | | | | | | [...] interventio | | Occupational Therapy | | 019 | | scheduled/d | n | | [...] Problem: HH OT HEP | | | OT provided patient | | Progress HEP | NEEDGoal: OT HOME | Comple | | with gentle AROM | | Description: | EXERCISE PROGRAM | yoel | | exercises for the LUE to | | Instruct patient | (HEP) NEED | | | address patient's L | | and/or caregiver in | | | | elbow bursitis. | | home exercise | | | | | | program. | | | | | + + +--------+--------+ + documented in this encounter"
--- OUTSIDE RECORDS SUMMARY | ~2020-03-14 | XMS | Encounter Summary ---
Demographics + + + | Address | [address] | | | [place] [address] | + + + | Home Phone | | + + + | Preferred Language | Unknown | + + + | Marital Status | | + + + | Episcopal Affiliation | Unknown | + + + | Race | Unknown | + + + | Ethnic Group | Unknown | + + + Author + + + | Author | [facility] | | | and [place] | + + + | Organization | [facility] | | | [...] Providers + +------+ + | Care Sales Service Executive Name | Role | Phone | [...] + + | 02/09/ | Telephone | [facility] [place] | Janel, | Care Coordination | | 2020 | | [facility] | Brittany Schulz RN | | | | | [address] | | | | | | [address] [place] | | | | | | [place] [address] | | | | | | [phone] | | | +--------+ + + + [...] | | 2019 | 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
--- OUTSIDE RECORDS SUMMARY | ~2020-03-14 | XMS | Encounter Summary ---
Demographics + + + | Address | [address] | | | [place] [address] | + + + | Home Phone [...] Team Providers + +------+ + | Care Dobby Loom Fixer Name | Role | Phone | + +------+ + | Candido Link | PCP | | | MD | | | + +------+ + Reason for Visit + + + | Reason | Comments | + + + | Fall | | + + + | Coagulation Disorder | | + + + | Back Pain | | + + + Auth/Cert +--------+--------+ + + + + | Status | Reason | Specialty | Diagnoses / | Referred By | Referred To | | | | | Procedures | Contact | Contact | +--------+--------+ + + + + | | | | Diagnoses | | | | | | | Colitis | | | | | | | Weakness | | | | | | | 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) Fall, | | | | | | | initial | | | | | | | encounter | | | | | | | Other closed | | | | | | | | | | | | | | nondisplaced | | | | | | | fracture of | | | | | | | second | | | | | | | cervical | | | | | | | vertebra, | | | | | | | [...] + + | 02/25/ | Emergency | [facility] | Nguyễn Oden MD | Fall from ground | | 2019 | | [facility] | [address] | level (Primary Dx); | | | | CENTER [address] | [place] | Laceration of right | | | | [place] | [address] | side of back, | | | | [address] | | initial encounter | | | | [phone] | | | +--------+ + + + [...] + + + | Blood Pressure | 100/44 | 02/26/2020 6:57 PM | | | | | PDT | | + + + + + | Pulse | 87 | 02/26/2020 6:57 PM | | | | | PDT | | + + + + + | Temperature | 37.2 C (98.9 F) | 02/26/2020 5:12 PM | | | | | PDT | | + + + + + | Respiratory Rate | 16 | 02/26/2020 6:57 PM | | | | | PDT | | + + + + + | Oxygen Saturation | 98% | 02/26/2020 6:57 PM | | | | | PDT | | + + + + + | Inhaled Oxygen | - | - | | | Concentration | | | | + + + + + | Weight | 45.5 kg (100 lb 5 | 02/26/2020 5:12 PM | | | | oz) | PDT | | + + + + + | Height | - | - | | + + + + + | Body Mass Index | 16.2 | 02/18/2020 12:31 PM | | | | | PDT | | + + + + + documented in this encounter Discharge Instructions Instructions Nguyễn Oden MD - 02/26/2020Return for any worsening symptoms, signs of infec tion, fevers, chills, development headache, nausea, vomiting, seizures or any new concerns. AttachmentsThe following attachments cannot be sent through Care Everywhere.Laceration: All Closures (Lebanese)Fall, Mechanical (Lebanese)documented in this encounter Medications at Time of [...] by | 60 vial | 0 | // | | | mL nebulizer | nebulization [...] | | | | | | type ([facility]) | | | | | | + [...] tablet by | 30 | 1 | 04/09/20 | | | (ZYRTEC) 10 mg | [...] 0 | 02/24/20 | | | (MYCOSTATIN) [id number] | | | | 20 | | [...] g by mouth | | 0 | // | | | glycol (MIRALAX) | Daily [...] tablet by | 30 | 0 | 01/22/20 | | | 10 mg tablet | [...] | | 0 | | | | ([facility]) 0.65% nasal | Nare route. two [...] | 03/23/ | Office | Anticoagulation | Gacría Harris, | | | 2019 | Visit | | APARTMENT MAINTENANCE TECHNICIAN [address] | | | | | | [place] | | | | | | [address] | | | | | | | | +--------+ + + + + | 04/11/ | Appointment | Radiology | Shawn Michael | | | 2019 | | | MD [address] | | | | | | [address] [place] | | | | | | [place] [address] | | | | | | [phone] | | | | | | | | +--------+ + + + + | 04/13/ | Office | Cardiology | Shawn Michael | | | 2019 | Visit | | MD [address] | | | | | | [address] [place] | | | | | | [place] [address] | | | | | | [phone] | | | | | | | | +--------+ + + + + + +------+--------+ + + | Name | Type | Priori | Associated Diagnoses | Date/Time | | | | ty | | | + +------+--------+ + + | ED INFORMATION | MICHAEL | Routin | | 02/26/2020 5:13 PM | | EXCHANGE | | e [...] | | | 17:12? | | | SRIDEVI | | | , | | | MAHI | | | J?MRN: | | | | | | [id number] | | | [id number] | | | riteri | | | [...] | | | St. | | | [place] | | | y | | | [...] | | | s | | | [place] | | | ED | | | Dispar | | | ity | | | Measur | | | e - | | | [place] | | | has | | | [...] | | | s. | | | [place] | | | | | | Health [...] | | | By: | | | [place] | | | | | | Health [...] | | 18 0 | | | [facility] | | | | | | [facility] | | | l | | | [facility] | | | al 1 0 | | | [facility] | [facility] | | | [facility] | | | y | | | [...] | | | St. | | | [facility] | | | y H. | | [...] | | | St. | | | [facility] | | | y H. 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 COMPARISON: Head CT dated | | | 01/31/2020. PROCEDURE: Axial images were obtained through the head | | | without IV contrast. Multiplanar reformations were obtained from the | | | acquisition data. At least one of the following CT dose | | | optimization techniques were used: Automated exposure control; | | | Adjustment of mA and/or kV according to patient size; Use of | | | iterative reconstruction technique. FINDINGS: Brain: No | | | intracranial hemorrhage, midline shift or pathologic mass effect. No | | | cerebral edema, mass lesion, or evidence of acute infarct. Relatively | | | unchanged periventricular confluent hypodensity suggest small vessel | | | ischemic gliosis. 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 Tiny | | | bilateral basal ganglia hypodensities again seen, probably old chronic | | | infarcts. Unchanged inner table sclerotic right frontal bone focus | | | adjacent to the right frontal lobe, potentially an osteoma. | | | Ventricles and extra-axial fluid spaces: Unchanged moderate volume | | | loss, with associated mild ventricular prominence. No acute | | | hydrocephalus. Atherosclerotic calcifications involving the the | | | anterior and posterior circulation bilaterally. Paranasal sinuses | | | and mastoid air cells: Normal. Calvarium and extracranial soft | | | tissues: Normal. Orbits: No acute findings with postoperative | | | changes involve the lenses of the globes. IMPRESSION- Chronic | | | appearing findings as above without acute intracranial abnormality. | | | A preliminary report was sent by [facility] with no significant | | | discrepancy on 02/26/2020 6:26 PM. Dictated and Signed by: Patrick | | | MD Michael Electronically signed: 02/27/2020 1:14 PM | | + + + + + | Procedure Note | + + | Kobe, Rad Results In - 02/27/2020 1:[address] HEAD WO CONTRAST 02/26/2020 5:52 PM | | | | CLINICAL INFORMATION: | | Ground level fall on [place]. | | | | COMPARISON: | | Head CT dated 01/31/2020. | | | | PROCEDURE: | | [...] iterative reconstruction technique. | | | | FINDINGS: | | Brain: No intracranial hemorrhage, midline shift or pathologic mass | | effect. No cerebral edema, mass lesion, or evidence of acute infarct. | | Relatively unchanged periventricular confluent hypodensity suggest | | small vessel ischemic gliosis. Unchanged region of encephalomalacia | | involving the left occipital lobe consistent with an old infarct. Tiny | | bilateral basal ganglia hypodensities again seen, probably old chronic | | infarcts. Unchanged inner table sclerotic right frontal bone focus | | adjacent to the right frontal lobe, potentially an osteoma. | | | | Ventricles and extra-axial fluid spaces: Unchanged moderate volume | | loss, with associated mild ventricular prominence. No acute | | hydrocephalus. Atherosclerotic calcifications involving the the | | anterior and posterior circulation bilaterally. | | | | Paranasal sinuses and mastoid air cells: Normal. | | | | Calvarium and extracranial soft tissues: Normal. | | | | Orbits: No acute findings with postoperative changes involve the lenses | | of the globes. | | | | IMPRESSION- | | Chronic appearing findings as above without acute intracranial | | abnormality. | | | | A preliminary report was sent by [facility] with no significant discrepancy | | on 02/26/2020 6:26 PM. | | | | Dictated and Signed by: Patrick Rodriguez MD | | Electronically signed: 02/27/2020 1:14 PM | + + + +---------+ + + | Performing | Address | City/State/Zipcode | Phone Number | | Organization | | | | + +---------+ + + | [facility] | | | | + +---------+ + + documented in this encounter Visit Diagnoses + + | Diagnosis | + + | Fall from ground level - Primary | + + | Laceration of right side of back, initial encounter | + + documented in this encounter Additional Health Concerns + + + + | Infection | Noted Time | Resolved Time | + + + + | Methicillin-resistant Staphylococcus aureus | 06/08/2019 9:39 AM | | | | PDT | | + + + + documented as of this encounter"
--- OUTSIDE RECORDS SUMMARY | ~2020-03-14 | XMS | Encounter Summary ---
Demographics + + + | Address | [address] | | | [place] [address] | + + + | Home Phone [...] Providers + +------+ + | Care Industrial Spray Painter Name | Role | Phone | + [...] | | | [address] | [place] [address] | | | | | [place] [address] | | | | | | [phone] | | | +--------+ + + + [...] | 2019 | Visit | | SENIOR PROJECT ARCHITECT [address] | | | | | | [place] | | | | | | [address] | | | | | | | | +--------+ + + + + | 04/11/ | Appointment | Radiology | Shawn Michael | | | 2019 | | | MD [address] | | | | | | [address] [place] | | | | | | [place] [address] | | | | | | [phone] | | | | | | | | +--------+ + + + + | 04/13/ | Office | Cardiology | Shawn Michael | | | 2019 | Visit | | MD [address] | | | | | | [address] [place] | | | | | | [place] [address] | | | | | | [phone] | | | | | | | [...]
--- OUTSIDE RECORDS SUMMARY | ~2020-03-14 | XMS | Encounter Summary ---
Demographics + + + | Address | [address] | | | [place] [address] | + + + | Home Phone [...] Team Providers + +------+ + | Care Tomato Pulper Operator Name | Role | Phone | [...] | 06/24/ | Home Care | [facility] [place] | Sam Quintanilla, | PT REPEAT VISIT | | 2019 | Visit | [place] [address] | SAND WHEELER [address] | | | | | [place] | [place] | | | | | [address] | [address] | | | | | [phone] | | | +--------+ + + + [...] + +---------+ + + | Pulse | 94 | 06/24/2019 11:58 AM | | | | | PDT | | + +---------+ + + | Temperature | - | - | | + +---------+ + + | Respiratory Rate | - | - | | + +---------+ + + | Oxygen Saturation | 97% | 06/24/2019 11:58 AM | on 3 lit | | | | PDT | | + +---------+ + + | [...] | | 2019 | Visit | | MARKETING SUPPORT COORDINATOR [address] | | | | | | [place] | | | | | | [address] | | | | | | | | +--------+ + + + + | 04/11/ | Appointment | Radiology | Shawn Michael | | | 2019 | | | MD [address] | | | | | | [address] [place] | | | | | | [place] [address] | | | | | | [phone] | | | | | | | | +--------+ + + + + | 04/13/ | Office | Cardiology | Shawn Michael | | | 2019 | Visit | | MD [address] | | | | | | [address] [place] | | | | | | [place] [address] | | | | | | [phone] | | | | | | | [...] interventio | | Physical Therapy | | 019 [...] 1 goal | | STRENGTH | | | Active | linked to | interventio | | Disciplines: | | 019 | [...] 1 goal | | TRANSFERS | | | Active | linked to | interventio | | Disciplines: | | 019 | [...] | | | | | | ambulate 500 feet | | | | | | using least | | | | | | restrictive AD | [...] | | Description: LE | STRENGTH | | | | | strength 4+/5 or | | | | | | greater for | | | | | | bilateral LE | | | | | | strength. Outcomes: | [...] | | No | | | Description: Safe | TRANSFERS | | | | | and independent with | | | | | | all ADL transfers; | | | | | | SBA for shower and | | | | | | car. Outcomes: The | | | | | | patient will reach | | [...] | 2x20 feet on even | | LRAD no weight | | | | surfaces, completed task | | bearing restrictions | | | | with contact guard | | | | | | assistance. Therapist | | | | | | gave VC for improved | | | | | | postural mechanics and | | | | | | normalized loading | | | | | | mechanics through ankles | | | | | | and hips. SAND WHEELER notes | | | | | | ongoing deficits: WBOS, | | | | | | pain and fatigue that | | | | | | limited gait, that will | | | | | | continue to be addressed | | | | | | in future visits. | + + +--------+--------+ + | PT therapeutic | Problem: PT | | | SAND WHEELER performed | | exercise | IMPAIRED | Comple | | progressive resistance | | Description: | STRENGTHGoal: PT | yoel | | exercises in stance: | | Evaluate and | STRENGTH | | | ankle PF/DF and mini | | instruct the patient | | | | squats. SAND WHEELER adjusted | | and/or caregiver | | | | difficulty by changing | | and provide home | | | | position relative to | | exercise program to | | | | gravity and use of | | restore maximal | | | | therabands/manual | | functional strength. | | | | resistance as indicated | | | | | | to allow pt to complete | | | | | | 5 reps to simulate ~60% | | | | | | of 1 RM for gentle | | | | | | strengthening with | | | | | | respect to OA and | | | | | | comordities}. Verbal and | | | | | | tactile cues given for | | | | | | form as needed. | + + +--------+--------+ + | PT transfer | Problem: PT | | | Used STS as a | | training | IMPAIRED | Comple | | functional task specific | | Description: | TRANSFERSGoal: PT | yoel | | training exercise [...] | | | | demos failure before 3 | | mechanics and | | | | reps to ensure adequate | | necessary equipment. | | | | training stimulus for | | | | | | optimal LE | | | | | | strengthening. pt | | | | | | completed 3 reps from | | | | | | normal surface using | | | | | | of hands with extended | | | | | | time and verbal cues. | + + +--------+--------+ + documented in this encounter"
--- OUTSIDE RECORDS SUMMARY | ~2020-03-14 | XMS | Encounter Summary ---
Demographics + + + | Address | [address] | | | [place] [address] | + + + | Home Phone | | + + + | Preferred Language | Unknown | + + + | Marital Status | | + + + | Mormon Affiliation | Unknown | + + + | Race | Unknown | + + + | Ethnic Group | Unknown | + + + Author + + + | Author | [facility] | | | and [place] | + + + | Organization | [facility] | | | [...] Team Providers + +------+ + | Care Head Of Measurement & Insights Name | Role | Phone | + [...] + | 01/06/ | Home Care | [facility] [place] | Wanda Barbosa, | SN REPEAT VISIT | | 2019 | Visit | [place] [address] | RN | | | | | [place] | | | | | | [address] | | | | | | [phone] | | | +--------+ + + + [...] + + + | Blood Pressure | 120/78 | 01/07/2020 9:30 AM | | | | | PDT | | + + + + + | Pulse | 74 | 01/07/2020 9:30 AM | | | | | PDT | | + + + + + | Temperature | 36.8 C (98.2 F) | 01/07/2020 9:30 AM | | | | | PDT | | + + + + + | Respiratory Rate | 14 | 01/07/2020 9:30 AM | | | | | PDT | | + + + + + | Oxygen Saturation | 97% | 01/07/2020 9:30 AM | | | | | PDT [...] [place] | | | | | | [address] | | | | | | | | +--------+ + + + + | 04/11/ | Appointment | Radiology | Shawn Michael | | | 2019 | | | MD [address] | | | | | | [address] | | | | | | [place] [address] | | | | | | [phone] | | | | | | | | +--------+ + + + + | 04/13/ | Office | Cardiology | Zacharynnamdi Shawn | | | 2019 | Visit | | MD [address] | | | | | | [address] [place] | | | | | | [place] [address] | | | | | | [phone] | | | | | | | [...] + | Visit Type - SN - REPEAT VISIT | | Discipline - Senior Living | + + + + +--------+--------+ + [...] 020 | | | interventio | | Senior Living | | | | | n | [...] | | Active | | | | Senior Living | | 020 | | | interventio [...] linked to | interventio | | Senior Living | | 020 | | scheduled/d | [...] | | | | n | | Senior Living, | | | | | scheduled/d | | Physical Therapy, | | | | | ocumented | | Home Health Aide, | | | | | in this | | Software Product Specialist, | | | | | visit | [...] | | | | n | | Senior Living | | | | | scheduled/d | [...] | | Active | | | | Senior Living | | 020 | | | interventio [...] to | | | | | | [facility] [place] for counseling | | | | | | for other mental | | | | | | health services. | | | | | + + +--------+--------+ + | Pain management | Problem: SHARED | | | See pain assess | | Description: | PAIN | | | | | Instruct PT/CG | | | | | | regarding pain | [...] care | Problem: Wound | | | Wounds cleansed with | | Description: Wound | Management | Comple | | wound cleanser and | | type: Pressure sore | | yoel | | sacrum foam applied to | | Wound location: | | | | cover both wounds. Inst | | Coccyx Wound care: | | | | CG to leave on as long | | Clean with WC/NS. | | | | as possible. | | May apply skin prep, | [...]
--- OUTSIDE RECORDS SUMMARY | ~2020-03-14 | XMS | Encounter Summary ---
Demographics + + + | Address | [address] | | | [place] [address] | + + + | Home Phone | | + + + | Preferred Language | Unknown | + + + | Marital Status | | + + + | Taoism Affiliation | Unknown | + + + | Race | Unknown | + + + | Ethnic Group | Unknown | + + + Author + + + | Author | [facility] | | | and [place] | + + + | Organization | [facility] | | [...] Team Providers + +------+ + | Care University Manager Name | Role | Phone | [...] [place] | | | | | | [address] | | | | | | [phone] | | | +--------+ + + + [...] | | | | | [place] [address] | | | | | | [phone] | | | | | | | | +--------+ + + + + | 04/13/ | Office | Cardiology | Shawn Michael | | | 2019 | Visit | | MD [address] | | | | | | [address] [place] | | | | | | [place] [address] | | | | | | [phone] | | | | | | | [...]
--- OUTSIDE RECORDS SUMMARY | ~2020-03-14 | XMS | Encounter Summary ---
Demographics + + + | Address | [address] | | | [place] [address] | + + + | Home Phone | | + + + | Preferred Language | Unknown | + + + | Marital Status | | + + + | Quaker Affiliation | Unknown | + + + | Race | Unknown | + + + | Ethnic Group | Unknown | + + + Author + + + | Author | [facility] | | | and [place] | + + + | Organization | [facility] | | | [...] Team Providers + +------+ + | Care Texture Artist Name | Role | Phone | [...] [place] | | | | | | [address] | | | | | | [phone] | | | +--------+---------+ + + + [...] | 2020 | Visit | | [facility]AB[facility] [address] [place] [address] | | | | | | [place] | | | | | | [address] | | | | | | | | +--------+ + + + + | 07/07/ | Appointment | Radiology | Shawn Michael | | | 2019 | | | MD [address] | | | | | | [address] [place] | | | | | | [place] [address] | | | | | | [phone] | | | | | | | | +--------+ + + + + | 04/13/ | Office | Cardiology | Shawn Michael | | | 2019 | Visit | | MD [place] | | | | | | [address] [place] | | | | | | [place] [address] | | | | | | [phone] | | | | | | | [...]
--- OUTSIDE RECORDS SUMMARY | ~2020-03-14 | XMS | Encounter Summary ---
Demographics + + + | Address | [address] | | | [place] [address] | + + + | Home Phone | | + + + | Preferred Language | Unknown | + + + | Marital Status | | + + + | Presybeterian Affiliation | Unknown | + + + | Race | Unknown | + + + | Ethnic Group | Unknown | + + + Author + + + | Author | [facility] | | | and [place] | + + + | Organization | [facility] | | [...] Team Providers + +------+ + | Care Death Claim Examiner Name | Role | Phone | + +------+ + | Candido Link | PCP | | | MD | | | + +------+ + Reason for Visit + + + | Reason | Comments | + + + | TCM - Hosp FU | | + + + Encounter Details +--------+ + + + + | Date | Type | Department | Care Team | Description | +--------+ + + + + | 02/24/ | Telephone | [facility] | Kaylyn Rivas, | TCM - Hosp FU | | 2020 | | [facility] | RN | | | | | [address] | | | | | | [address] [place] | | | | | | [place] [address] | | | | | | [phone] | | | +--------+ + + + [...] | | 2019 | Visit | | LIVE AMMUNITION INSPECTOR [address] | | | | | | [place] | | | | | | [address] | | | | | | | | +--------+ + + + + | 04/11/ | Appointment | Radiology | Shawn Michael | | | 2019 | | | MD [address] | | | | | | [address] [place] | | | | | | [place] [address] | | | | | | [phone] | | | | | | | | +--------+ + + + + | 04/13/ | Office | Cardiology | Shawn Michael | | | 2019 | Visit | | MD [address] | | | | | | [address] [place] | | | | | | [place] [address] | | | | | | [phone] | | | | | | | [...]
--- OUTSIDE RECORDS SUMMARY | ~2020-03-14 | XMS | Encounter Summary ---
Demographics + + + | Address | [address] | | | [place] [address] | + + + | Home Phone [...] + + | Author | [facility] | | | and [place] | + + + | Organization | [facility] | | | [...] Team Providers + +------+ + | Care Air And Hydronic Balancing Technician Name | Role | Phone | + +------+ + | Candiod Link | PCP | | | MD | | | + +------+ + Reason for Visit + + + | Reason | Comments | + + + | Shortness of Breath | | + + + | Fever (75 Years Old | | | Or >) | | + + + Auth/Cert +--------+--------+ + + + + | Status | Reason | Specialty | Diagnoses / | Referred By | Referred To | | | | | Procedures | Contact | Contact | +--------+--------+ + + + + | | | | Diagnoses | | | | | | | Pneumonia | | | | | | | due to | | | | | | | infectious | | | | | | | organism, | | | | | | | unspecified | | | | | | | laterality, | | | | | | | unspecified | | | | | | | part of lung | | | | | | | Sepsis, | | | | | | | due to | | | | | | | unspecified | | | | | | | organism, | | | | | | | unspecified | | | | | | | whether | | | | | | | acute organ | | | | | | | dysfunction | | | | | | | present | | | | | | | ([facility]) | | | +--------+--------+ + + + + Encounter Details +--------+ + + + + | Date | Type | Department | Care Team | Description | +--------+ + + + + | 07/20/ | Hospital | [facility] | Corbin Hastings MD | Pneumonia due to | | 2019 - | Encounter | [facility] | [address] | infectious organism, | | | | [address] [place] | [place] | unspecified | | 07/24/ | | [place] [id number] | [phone] | laterality, | | 2019 | | [phone] | | unspecified part of | | | | | José Miguel Napier | lung (Primary Dx); | | | | | [facility] [address] | Sepsis, due to | | | | | [address] [place] | unspecified | | | | | [place] [address] | organism, | | | | | [phone] | unspecified whether | | | | | | acute organ | | | | | Sam Valladares, | dysfunction present | | | | | [address] | (HCC); COPD | | | | | [place] | exacerbation (HCC); | | | | | [id number] | Severe | | | | | [phone] | protein-calorie | | | | | | malnutrition (HCC); | | | | | | Community acquired | | | | | | pneumonia of right | | | | | | lower lobe of lung; | | | | | | Rhinovirus | | | | | | infection; Acute on | | | | | | chronic diastolic | | | | | | (congestive) heart | | | | | | failure (HCC); | | | | | | Coronary artery | | | | | | disease, angina | | | | | | presence | | | | | | unspecified, | | | | | | unspecified vessel | | | | | | or lesion type, | | | | | | unspecified whether | | | | | | [place] or | | | | | | transplanted heart; | | | | | | Essential | | | | | | hypertension; | | | | | | Anxiety; Depression, | | | | | | unspecified | | | | | | depression type; | | | | | | [...] + + + | Blood Pressure | 152/82 | 07/24/2019 7:54 AM | | | | | PDT | | + + + + + | Pulse | 99 | 07/24/2019 11:08 AM | | | | | PDT | | + + + + + | Temperature | 36.9 C (98.4 F) | 07/24/2019 11:48 AM | | | | | PDT | | + + + + + | Respiratory Rate | 20 | 07/24/2019 11:08 AM | | | | | PDT | | + + + + + | Oxygen Saturation | 97% | 07/24/2019 11:08 AM | | | | | PDT | | + + + + + | Inhaled Oxygen | - | - | | | Concentration | | | | + + + + + | Weight | 52.5 kg (115 lb 11.9 | 07/24/2019 5:18 AM | | | | oz) | PDT | | + + + + + | Height | - | - | | + + + + + | Body Mass Index | 19.26 | 06/28/2019 8:00 PM | | | | | PDT | | + + + + + documented in this encounter Discharge Summaries Sam Valladares MD - 07/24/2019 10:44 AM PDTFormatting of this note might be different f rom the original. 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), bioprosthetic Unwitnessed fall Myocardial infarction type 2 Generalized anxiety disorder GERD (gastroesophageal reflux disease) Hypertension halfway (current) use of anticoagulants - clopidogrel (PLAVIX) Pulmonary hypertension, mild Cerebral atherosclerosis Uses walker COPD (chronic obstructive pulmonary disease) Mitral valve stenosis, mild Former smoker Moderate protein-calorie malnutrition Impaired mobility Hypoxemia Generalized osteoarthritis Detrusor dysfunction Anxiety COPD exacerbation Severe protein-calorie malnutrition Pneumonia of right lower lobe due to Pseudomonas species Consultants: None Procedures: 07/20 CXR: Findings: Heart is normal in size. Subtle thickening of the right basilar interstitial markings. Chronic thickening of the central interstitial markings. Aortic calcifications are present. No evidence of pneumothorax or pleural effusion. No acute osseous abnormality. No results found. Labs in the last 24 hours: Recent Results (from the past 24 hour(s)) Basic Metabolic Panel Result Value Ref Range Na 144 136 - 145 mmol/L K 3.9 3.4 - 5.1 mmol/L Cl 104 98 - 107 mmol/L CO2 34 (H) 20 - 31 mmol/L Anion Gap 6 3 - 16 mmol/L Glucose 79 60 - 106 mg/dL BUN 29 (H) 9 - 23 mg/dL Creatinine 0.74 0.55 - 1.02 mg/dL eGFR if not >60 >=60 mL/min/1.73m2 Calcium 8.4 (L) 8.7 - 10.4 mg/dL BUN/Creatinine Ratio 39.2 CBC with Differential Result Value Ref Range WBC 11.8 (H) 4.0 - 11.0 K/uL RBC 3.11 (L) 3.70 - 5.20 M/uL Hemoglobin 8.8 (L) 11.5 - 16.0 g/dL Hematocrit 29.2 (L) 34.0 - 47.0 % MCV 93.9 83.0 - 101.0 fL MCH 28.3 28.0 - 35.0 pg MCHC 30.1 (L) 32.0 - 36.0 g/dL RDW-CV 14.2 <15.0 % RDW-SD 48.7 (H) 35.1 - 46.3 fL Platelet Count 201 140 - 440 K/uL MPV 10.4 6.5 - 12.4 fL % Neutrophils 79.2 45.0 - 82.0 % % Lymphocytes 8.8 (L) 20.0 - 45.0 % % Monocytes 9.5 4.0 - 12.0 % % Eosinophils 0.2 0.0 - 5.0 % % Basophils 0.1 0.0 - 1.0 % % Immature Granulocytes 2.2 (H) 0.0 - 0.4 % Absolute Neutrophils 9.31 (H) 1.80 - 8.50 K/uL Absolute Lymphocytes 1.04 0.60 - 3.20 K/uL Absolute Monocytes 1.12 (H) 0.00 - 1.00 K/uL Absolute Eosinophils 0.02 0.00 - 0.40 K/uL Absolute Basophils 0.01 0.00 - 0.10 K/uL Absolute Immature Granulocytes 0.26 (H) 0.00 - 0.03 K/uL % nRBC 0 0 - 2 per 100 WBCs Absolute nRBC 0.00 0.00 - 0.01 K/uL Reason for Admission: Please refer to the H&P for full details. In short, this is a 88 y.o. female with a histor y of COPD with chronic respiratory failure on home oxygen, recent aortic valve replacement, severe protein calorie malnutrition with falls who presents with acute pneumonia and respira tory failure Problem-Oriented Hospital Course: COPD exacerbation due toright lower lobe pneumonia, apparently due to pseudomonas/chronic respiratory failure with hypoxia -Uses oxygen at baseline - Temp of 37.8 on arrival, with tachypnea and tachycardia - CXR shows right basilar opacity - Respiratory viral panel showed rhinovirus - Urinary antigen showed strep pneumo - Sputum culture shows pseudomonas,sensitive to all antibiotics tested, including cipro a nd cefepime -Received 3 days of azithromycin, now finished - Started on ceftriaxone, switched to cefepime when sputum culture grew Pseudomonas, switch ed to oral ciprofloxacin per sensitivities for 5 more days at discharge - WBC 13.3 on arrival, fell, although WBC still 11.8 at discharge -Legionella/st. pneumo agpending, MRSA swab did showMRSA, but sputum culture did not, she is afebrile, and feeling much better, did not add vancomycin - scheduled nebs, and Prednisone 40 mg X 5 days, then restart chronic home prednisone 10 mg daily - Gradually improving symptoms Mild Acute on Chronic Diastolic CHF/s/p TAVR - elevated BNP, but close to baseline, - home lasixincreasedto 40 mg daily from 20 mg while in the hospital, monitor fluid sta tus -Echoshowed decreased gradient across TAVR compared to 06/04, no acute concerns CAD - cont asa/statin/carvedilol, no acute chest pain EssentialHTN - On carvedilol, can increase if needed Anxiety/Depression - cont buspirone and mirtazapine Chronic pain: - Hydrocodone PRN Severe protein-calorieMalnutrition: -Iattestthat this clinical assessment using ASPEN criteria 1is accurate for this pa tient and supports that as a medical diagnosis.A specific nutrition treatment plan will be implemented as outlined in the registered dietitian's plan of care. Nutrition Diagnosis: Severe protein-calorie malnutrition Type, Severe: Acute illness/injury Weight Loss: Greater than 5% in 1 month Energy Intake: Less than 75% energy intake compared to estimated needs for greater than 7 d ays Body Fat: Severe depletion Muscle Mass: Severe depletion Weight Loss: Greater than 5% in 1 month Disposition: [facility] Discharge Condition: stable Contact information for follow-up providers Candido Link MD On 07/28/2019. Specialty: Internal Medicine Why: This is your hospital follow up appointment, scheduled for 10:00, Please check in at 9:45. Contact information: [facility] [place] [address] Contact information for after-discharge care Placement Destination [facility] . Service: [facility] Contact [facility] [address] [facility] [id number] Discharge Readmit Medications (From admission, onward) None Studies With Pending Results: None Greater than 30 minutes were spent on discharge and coordination of post-hospital care. Electronically signed by: Sam Valladares MD, 07/24/2019 16:23 [facility] documented in this encounter Medications at Time [...] + + + +---------+ + + | ciprofloxacin | Take 1 tablet by | 14 | 0 | 07/24/20 | | | (CIPRO) 500 mg | mouth 2 times daily. | tablet | | 19 | 9 [...] | | Take 1 tablet by | 25 | 0 | 07/24/20 | | | HYDROcodone-acetamin | mouth every [...] + + + +---------+ + + | mirtazapine | Take 1 tablet by | 30 | 3 | 07/19/20 | | | (REMERON) 7.5 MG | mouth nightly. | tablet | | 19 | 9 | | tabletIndications: | | | | | | | Anxiety, Poor | | | | | | | appetite | | | | | | + [...] tablet by | 90 | 1 | 07/24/20 | | | (DELTASONE) 10 mg | mouth Daily. | tablet | | 19 | 9 | | tablet | | | | | | + + + +---------+ + + | senna (SENNA) 8.6 | Take 1 tablet by | | 0 | | | | mg tablet | mouth Daily as | | | | 9 | | | needed for | | | | | | | Constipation. | | | | | + + + +---------+ + + | sodium chloride | 2 sprays by Each | | 0 | 07/24/20 | | | (OCEAN) 0.65% nasal | Nare route every 2 | | | 19 | 9 | | spray | hours as needed for | | | | | | | Nasal Dryness. | | | | | + + [...] 1 each | 0 | 07/05/20 | 11/07/201 | | FINDIndications: | with accessoriesLON: | | | 19 | 9 | | Centrilobular | 99 months. | | | | | | emphysema (HCC), | | | | | | | Hypoxemia | | | | | | + + + +---------+ + + documented as of this encounter Progress Notes Yoly Robles RN - 07/24/2019 10:59 AM PDTFormatting of this note might be different fro m the original. [facility] Hospitalist Progress Note Ángela Crowley is a 88 y.o. female ASSESSMENT and PLAN: Active Hospital Problems Diagnosis Pneumonia of right lower lobe due to infectious organism Generalized anxiety disorder Severe protein-calorie malnutrition *COPD exacerbation Coronary artery disease involving [place] coronary artery of [place] heart without angina pectoris Resolved Hospital Problems No resolved problems to display. COPD exacerbation due to right lower lobe pneumonia/chronic respiratory failure with hypoxi a -Uses oxygen at baseline - Temp of 37.8 on arrival, with tachypnea and tachycardia - CXR shows right basilar opacity - Respiratory viral panel showed rhinovirus - Sputum culture shows pseudomonas, sensitive to all antibiotics tested, including cipro an d cefepime - Received 3 days of azithromycin, now finished - Continue cefepime for now, consider switching to ciprofloxacin as soon as tomorrow - WBC 13.3 on arrival, normalized -Legionella/st. pneumo agpending, MRSA swab did showMRSA, low threshold to start vanc omycin but given that her WBC normalized, she is afebrile, and feeling much better, will not add vancomycin at this time - scheduled nebs, and Prednisone 40 mg X 5 days - Gradually improved symptoms today Mild Acute on Chronic Diastolic CHF/s/p TAVR - elevated BNP, but close to baseline, - home lasixincreasedto 40 mg daily from 20 mg, monitor fluid status, give IV furosemid e if needed -Echo showed decreased gradient across TAVR compared to 06/04, no acute concerns CAD - cont asa/statin/carvedilol, no acute chest pain EssentialHTN - BP rising, will increase carvedilol Anxiety/Depression - cont buspirone and mirtazapine Chronic pain: - Hydrocodone PRN Severe protein-calorie Malnutrition: - I attest that this clinical assessment using ASPEN criteria 1 is accurate for this patien t and supports that as a medical diagnosis. A specific nutrition treatment plan will be im plemented as outlined in the registered dietitian's plan of care. Nutrition Diagnosis: Severe protein-calorie malnutrition Type, Severe: Acute illness/injury Weight Loss: Greater than 5% in 1 month Energy Intake: Less than 75% energy intake compared to estimated needs for greater than 7 d ays Body Fat: Severe depletion Muscle Mass: Severe depletion Weight Loss: Greater than 5% in 1 month Disposition : Plan to discharge to SNF, family prefers [facility] Prophylaxis : enoxaparin SUBJECTIVE: Continues to have some cough. SOB improving. No acute chest pain. C/o bladder not empt glendy completely, although sometimes has urgency. She is okay going to SNF for rehab VITALS: Temp: 36.9 C (98.4 F), Pulse: 94, Resp: 22, BP: 152/82, SpO2 96 % on nasal cannula Temp Min: 36.3 C (97.3 F) Max: 36.9 C (98.4 F) Weight: 53.8 kg (118 lb 9.7 oz) Intake/Output Summary (Last 24 hours) at 07/24/2019 1059 Last data filed at 07/24/2019 0545 Gross per 24 hour Intake 560 ml Output 2200 ml Net -1640 ml PHYSICAL EXAM: General: Alert, no distress, thin, frail, but alert and appropriate Cardiovascular: RRR Respiratory: Crackles in both bases Abdomen: Soft, NT Extremities: WWP, minimal edema Neurological: Oriented x 3, appropriate, [place] Ceja catheter present: No DIAGNOSTIC STUDIES: Available data and images were reviewed personally. Significant results and findings are a ddressed here or in the Assessment and Plan. Recent Results (from the past 24 hour(s)) Basic Metabolic Panel Result Value Ref Range Na 144 136 - 145 mmol/L K 3.9 3.4 - 5.1 mmol/L Cl 104 98 - 107 mmol/L CO2 34 (H) 20 - 31 mmol/L Anion Gap 6 3 - 16 mmol/L Glucose 79 60 - 106 mg/dL BUN 29 (H) 9 - 23 mg/dL Creatinine 0.74 0.55 - 1.02 mg/dL eGFR if not >60 >=60 mL/min/1.73m2 Calcium 8.4 (L) 8.7 - 10.4 mg/dL BUN/Creatinine Ratio 39.2 CBC with Differential Result Value Ref Range WBC 11.8 (H) 4.0 - 11.0 K/uL RBC 3.11 (L) 3.70 - 5.20 M/uL Hemoglobin 8.8 (L) 11.5 - 16.0 g/dL Hematocrit 29.2 (L) 34.0 - 47.0 % MCV 93.9 83.0 - 101.0 fL MCH 28.3 28.0 - 35.0 pg MCHC 30.1 (L) 32.0 - 36.0 g/dL RDW-CV 14.2 <15.0 % RDW-SD 48.7 (H) 35.1 - 46.3 fL Platelet Count 201 140 - 440 K/uL MPV 10.4 6.5 - 12.4 fL % Neutrophils 79.2 45.0 - 82.0 % % Lymphocytes 8.8 (L) 20.0 - 45.0 % % Monocytes 9.5 4.0 - 12.0 % % Eosinophils 0.2 0.0 - 5.0 % % Basophils 0.1 0.0 - 1.0 % % Immature Granulocytes 2.2 (H) 0.0 - 0.4 % Absolute Neutrophils 9.31 (H) 1.80 - 8.50 K/uL Absolute Lymphocytes 1.04 0.60 - 3.20 K/uL Absolute Monocytes 1.12 (H) 0.00 - 1.00 K/uL Absolute Eosinophils 0.02 0.00 - 0.40 K/uL Absolute Basophils 0.01 0.00 - 0.10 K/uL Absolute Immature Granulocytes 0.26 (H) 0.00 - 0.03 K/uL % nRBC 0 0 - 2 per 100 WBCs Absolute nRBC 0.00 0.00 - 0.01 K/uL No results found. Current Facility-Administered Medications: acetaminophen 650 mg Oral Q4H PRN aluminum & magnesium hydroxide-simethicone 30 mL Oral Q4H PRN aspirin 81 mg Oral Daily atorvaSTATin 20 mg Oral QAM benzonatate 200 mg Oral TID PRN brimonidine 1 drop Both Eyes BID budesonide 0.5 mg Nebulization RT BID busPIRone 10 mg Oral Daily carvedilol 12.5 mg Oral BID WC cetirizine 10 mg Oral Daily ciprofloxacin 500 mg Oral BID enoxaparin 40 mg Subcutaneous Daily ferrous sulfate 325 mg Oral Daily with breakfast fluticasone 1 spray Nasal Daily PRN fluticasone 2 spray Each Nare Daily furosemide 40 mg Oral Daily haloperidol lactate 2 mg Intravenous Q6H PRN HYDROcodone-acetaminophen 1 tablet Oral 4x Daily PRN ipratropium 500 mcg Nebulization RT Q4H latanoprost 1 drop Both Eyes QAM levalbuterol 1.25 mg Nebulization RT Q4H levalbuterol 1.25 mg Nebulization Q2H PRN melatonin 1 mg Oral Nightly PRN mirtazapine 7.5 mg Oral Nightly nitroglycerin 0.4 mg Sublingual Q5 Min PRN ondansetron 4 mg Intravenous Q6H PRN pantoprazole 40 mg Oral QAM AC polyethylene glycol 17 g Oral Daily PRN senna 8.6 mg Oral BID PRN sodium chloride 2 spray Each Nare 4x Daily tamsulosin 0.4 mg Oral Daily after breakfast Total time of approximately 25 minutes was spent with the patient and/or patient's family, and/or on the patient's floor/unit, of which more than 50% was spent counseling and/or coord ination the patient's care as outlined above. Yoly Robles RN 07/24/2019 10:59 [facility] Sam Durham MD - 07/23/2019 3:23 PM PDT [facility] Hospitalist Progress Note Ángela Crowley is a 88 y.o. female ASSESSMENT and PLAN: Active Hospital Problems Diagnosis Pneumonia of right lower lobe due to infectious organism Severe protein-calorie malnutrition *COPD exacerbation Resolved Hospital Problems No resolved problems to display. COPD exacerbation due to right lower lobe pneumonia/chronic respiratory failure with hypoxi a -Uses oxygen at baseline - Temp of 37.8 on arrival, with tachypnea and tachycardia - CXR shows right basilar opacity - Respiratory viral panel showed rhinovirus - Sputum culture shows pseudomonas, sensitive to all antibiotics tested, including cipro an d cefepime - Received 3 days of azithromycin, now finished - Continue cefepime for now, consider switching to ciprofloxacin as soon as tomorrow - WBC 13.3 on arrival, normalized -Legionella/st. pneumo agpending, MRSA swab did showMRSA, low threshold to start vanc omycin but given that her WBC normalized, she is afebrile, and feeling much better, will not add vancomycin at this time - scheduled nebs, and Prednisone 40 mg X 5 days - Gradually improved symptoms today Mild Acute on Chronic Diastolic CHF/s/p TAVR - elevated BNP, but close to baseline, - home lasixincreasedto 40 mg daily from 20 mg, monitor fluid status, give IV furosemid e if needed -Echo showed decreased gradient across TAVR compared to 06/04, no acute concerns CAD - cont asa/statin/carvedilol, no acute chest pain EssentialHTN - BP rising, will increase carvedilol Anxiety/Depression - cont buspirone and mirtazapine Chronic pain: - Hydrocodone PRN Severe protein-calorie Malnutrition: - I attest that this clinical assessment using ASPEN criteria 1 is accurate for this patien t and supports that as a medical diagnosis. A specific nutrition treatment plan will be im plemented as outlined in the registered dietitian's plan of care. Nutrition Diagnosis: Severe protein-calorie malnutrition Type, Severe: Acute illness/injury Weight Loss: Greater than 5% in 1 month Energy Intake: Less than 75% energy intake compared to estimated needs for greater than 7 d ays Body Fat: Severe depletion Muscle Mass: Severe depletion Weight Loss: Greater than 5% in 1 month Disposition : Plan to discharge to SNF, family prefers [facility] Prophylaxis : enoxaparin SUBJECTIVE: Continues to have some cough. SOB improving. No acute chest pain. C/o bladder not empt glendy completely, although sometimes has urgency. She is okay going to SNF for rehab VITALS: Temp: 36.9 C (98.5 F), Pulse: 103, Resp: 22, BP: 184/84, SpO2 95 % on nasal cannula wit h humidification Temp Min: 36.3 C (97.3 F) Max: 37.1 C (98.8 F) Weight: 53.8 kg (118 lb 9.7 oz) Intake/Output Summary (Last 24 hours) at 07/23/2019 1523 Last data filed at 07/23/2019 1030 Gross per 24 hour Intake 120 ml Output 1500 ml Net -1380 ml PHYSICAL EXAM: General: Alert, no distress, thin, frail, but alert and appropriate Cardiovascular: RRR Respiratory: Crackles in both bases Abdomen: Soft, NT Extremities: WWP, minimal edema Neurological: Oriented x 3, appropriate, [place] Ceja catheter present: No DIAGNOSTIC STUDIES: Available data and images were reviewed personally. Significant results and findings are a ddressed here or in the Assessment and Plan. Recent Results (from the past 24 hour(s)) Basic Metabolic Panel Result Value Ref Range Na 146 (H) 136 - 145 mmol/L K 4.0 3.4 - 5.1 mmol/L Cl 109 (H) 98 - 107 mmol/L CO2 33 (H) 20 - 31 mmol/L Anion Gap 4 3 - 16 mmol/L Glucose 80 60 - 106 mg/dL BUN 24 (H) 9 - 23 mg/dL Creatinine 0.67 0.55 - 1.02 mg/dL eGFR if not >60 >=60 mL/min/1.73m2 Calcium 8.4 (L) 8.7 - 10.4 mg/dL BUN/Creatinine Ratio 35.8 CBC with Differential Result Value Ref Range WBC 8.2 4.0 - 11.0 K/uL RBC 3.06 (L) 3.70 - 5.20 M/uL Hemoglobin 8.7 (L) 11.5 - 16.0 g/dL Hematocrit 29.0 (L) 34.0 - 47.0 % MCV 94.8 83.0 - 101.0 fL MCH 28.4 28.0 - 35.0 pg MCHC 30.0 (L) 32.0 - 36.0 g/dL RDW-CV 14.3 <15.0 % RDW-SD 49.6 (H) 35.1 - 46.3 fL Platelet Count 186 140 - 440 K/uL MPV 10.0 6.5 - 12.4 fL % Neutrophils 76.1 45.0 - 82.0 % % Lymphocytes 10.2 (L) 20.0 - 45.0 % % Monocytes 12.0 4.0 - 12.0 % % Eosinophils 0.5 0.0 - 5.0 % % Basophils 0.1 0.0 - 1.0 % % Immature Granulocytes 1.1 (H) 0.0 - 0.4 % Absolute Neutrophils 6.25 1.80 - 8.50 K/uL Absolute Lymphocytes 0.84 0.60 - 3.20 K/uL Absolute Monocytes 0.99 0.00 - 1.00 K/uL Absolute Eosinophils 0.04 0.00 - 0.40 K/uL Absolute Basophils 0.01 0.00 - 0.10 K/uL Absolute Immature Granulocytes 0.09 (H) 0.00 - 0.03 K/uL % nRBC 0 0 - 2 per 100 WBCs Absolute nRBC 0.00 0.00 - 0.01 K/uL No results found. Current Facility-Administered Medications: acetaminophen 650 mg Oral Q4H PRN aluminum & magnesium hydroxide-simethicone 30 mL Oral Q4H PRN aspirin 81 mg Oral Daily atorvaSTATin 20 mg Oral QAM benzonatate 200 mg Oral TID PRN brimonidine 1 drop Both Eyes BID budesonide 0.5 mg Nebulization RT BID busPIRone 10 mg Oral Daily carvedilol 6.25 mg Oral BID WC cefepime 1 g Intravenous 3 times per day cetirizine 10 mg Oral Daily enoxaparin 40 mg Subcutaneous Daily ferrous sulfate 325 mg Oral Daily with breakfast fluticasone 1 spray Nasal Daily PRN fluticasone 2 spray Each Nare Daily furosemide 40 mg Oral Daily haloperidol lactate 2 mg Intravenous Q6H PRN HYDROcodone-acetaminophen 1 tablet Oral 4x Daily PRN ipratropium 500 mcg Nebulization RT Q4H latanoprost 1 drop Both Eyes QAM levalbuterol 1.25 mg Nebulization RT Q4H levalbuterol 1.25 mg Nebulization Q2H PRN melatonin 1 mg Oral Nightly PRN mirtazapine 7.5 mg Oral Nightly nitroglycerin 0.4 mg Sublingual Q5 Min PRN ondansetron 4 mg Intravenous Q6H PRN pantoprazole 40 mg Oral QAM AC polyethylene glycol 17 g Oral Daily PRN predniSONE 40 mg Oral Daily senna 8.6 mg Oral BID PRN sodium chloride 2 spray Each Nare 4x Daily tamsulosin 0.4 mg Oral Daily after breakfast Total time of approximately 25 minutes was spent with the patient and/or patient's family, and/or on the patient's floor/unit, of which more than 50% was spent counseling and/or coord ination the patient's care as outlined above. Sam Valladares MD 07/23/2019 15:23 [facility] each, Sam Galarza MD - 07/22/2019 5:17 PM PDT [facility] Hospitalist Progress Note Ángela Crowley is a 88 y.o. female ASSESSMENT and PLAN: Active Hospital Problems Diagnosis Pneumonia of right lower lobe due to infectious organism Severe protein-calorie malnutrition *COPD exacerbation Resolved Hospital Problems No resolved problems to display. COPD exacerbation due to right lower lobe pneumonia - Temp of 37.8 on arrival, with tachypnea and tachycardia - CXR shows right basilar opacity - Respiratory viral panel showed rhinovirus, appears to have bacterial superinfection as we ll, sputum sample shows 4+ GNR - Received 3 days of azithromycin, now finished - Sputum culture shows non-fermenting GNR, switch from ceftriaxone to cefepime until cultur e results return - WBC 13.3 on arrival, down to 7.2 today - Legionella/st. 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 A specific nutrition treatment plan will be imp lemented as outlined in the registered dietitian's plan of care. Nutrition Diagnosis: Severe protein-calorie malnutrition Type, Severe: Acute illness/injury Weight Loss: Greater than 5% in 1 month Energy Intake: Less than 75% energy intake compared to estimated needs for greater than 7 d ays Body Fat: Severe depletion Muscle Mass: Severe depletion Weight Loss: Greater than 5% in 1 month Disposition : SNF vs. Home with home health Prophylaxis : enoxaparin SUBJECTIVE: Continues to have some shortness of breath, cough. No acute chest pain. Working with PT . No nausea/vomiting. Not much appetite, not eating well. Didn't sleep well last night VITALS: Temp: 36.2 C (97.1 F), Pulse: 106, Resp: 16, BP: 149/70, SpO2 95 % on nasal cannula wit h humidification Temp Min: 36.2 C (97.1 F) Max: 36.3 C (97.3 F) Weight: 53.8 kg (118 lb 9.7 oz) Intake/Output Summary (Last 24 hours) at 07/22/2019 1718 Last data filed at 07/22/2019 1330 Gross per 24 hour Intake 1981 ml Output 1200 ml Net 781 ml PHYSICAL EXAM: General: Frail, temporal/thenar muscle wasting Cardiovascular: RRR Respiratory: Slight crackles in bases, occasional cough Abdomen: Soft, NT Extremities: WWP [place], but alert and appropriate, vague historian Ceja catheter present: No DIAGNOSTIC STUDIES: Available data and images were reviewed personally. Significant results and findings are a ddressed here or in the Assessment and Plan. Recent Results (from the past 24 hour(s)) Echo Limited Result Value Ref Range Patient Weight (lbs) 115 lbs Patient Height 5'5" Ascending aorta 3.77 cm AV mean gradient 9.18 mmHg Aortic Valve Area by Continuity VTI 1.57 cm2 LVOT diameter 1.63 cm LVOT peak magalie 161.82 cm/s LVOT peak VTI 32.92 cm AV peak magalie 236 cm/s AV VTI 43.64 cm AV peak gradient 22.28 mmHg AV LVOT Peak Gradient 8.82 mmHg AV LVOT Mean Gradient 5.1 mmHg AV Acceleration Time 82.88 msec LVOT Mean Velocity 103.17 cm/s AV Mean Velocity 136.78 cm/s LA Major 0.4364 cm AV Cusp Seperation MM 1.02 cm LA Systolic Diameter MM 3.46 cm LVEF-TTE TRANSTHORACIC ECHO 65 Basic Metabolic Panel Result Value Ref Range Na 145 136 - 145 mmol/L K 3.9 3.4 - 5.1 mmol/L Cl 106 98 - 107 mmol/L CO2 33 (H) 20 - 31 mmol/L Anion Gap 6 3 - 16 mmol/L Glucose 81 60 - 106 mg/dL BUN 27 (H) 9 - 23 mg/dL Creatinine 0.84 0.55 - 1.02 mg/dL eGFR if not >60 >=60 mL/min/1.73m2 Calcium 8.7 8.7 - 10.4 mg/dL BUN/Creatinine Ratio 32.1 CBC with Differential Result Value Ref Range WBC 7.2 4.0 - 11.0 K/uL RBC 3.24 (L) 3.70 - 5.20 M/uL Hemoglobin 9.2 (L) 11.5 - 16.0 g/dL Hematocrit 30.1 (L) 34.0 - 47.0 % MCV 92.9 83.0 - 101.0 fL MCH 28.4 28.0 - 35.0 pg MCHC 30.6 (L) 32.0 - 36.0 g/dL RDW-CV 14.2 <15.0 % RDW-SD 48.4 (H) 35.1 - 46.3 fL Platelet Count 211 140 - 440 K/uL MPV 9.7 6.5 - 12.4 fL % Neutrophils 75.8 45.0 - 82.0 % % Lymphocytes 11.3 (L) 20.0 - 45.0 % % Monocytes 11.9 4.0 - 12.0 % % Eosinophils 0.4 0.0 - 5.0 % % Basophils 0.0 0.0 - 1.0 % % Immature Granulocytes 0.6 (H) 0.0 - 0.4 % Absolute Neutrophils 5.44 1.80 - 8.50 K/uL Absolute Lymphocytes 0.81 0.60 - 3.20 K/uL Absolute Monocytes 0.85 0.00 - 1.00 K/uL Absolute Eosinophils 0.03 0.00 - 0.40 K/uL Absolute Basophils 0.00 0.00 - 0.10 K/uL Absolute Immature Granulocytes 0.04 (H) 0.00 - 0.03 K/uL % nRBC 0 0 - 2 per 100 WBCs Absolute nRBC 0.00 0.00 - 0.01 K/uL No results found. 07/21 Echo: The left ventricle is of normal size and systolic function. LVEF visually estimated in the range of 65%. Aortic valve is echo dense consistent with bioprosthetic valve replacement, with peak velocity measuring 2.3 m/s. Mean/peak gradients are 11/22 mmHg. This is a limited echocardiogram to assess TAVR gradients, which are slightly less than patient's prior study of May 2019. Current Facility-Administered Medications: acetaminophen 650 mg Oral Q4H PRN aluminum & magnesium hydroxide-simethicone 30 mL Oral Q4H PRN aspirin 81 mg Oral Daily atorvaSTATin 20 mg Oral QAM benzonatate 200 mg Oral TID PRN brimonidine 1 drop Both Eyes BID budesonide 0.5 mg Nebulization RT BID busPIRone 10 mg Oral Daily carvedilol 6.25 mg Oral BID WC cefepime 1 g Intravenous 3 times per day cetirizine 10 mg Oral Daily enoxaparin 40 mg Subcutaneous Daily ferrous sulfate 325 mg Oral Daily with breakfast fluticasone 1 spray Nasal Daily PRN fluticasone 2 spray Each Nare Daily furosemide 40 mg Oral Daily haloperidol lactate 2 mg Intravenous Q6H PRN HYDROcodone-acetaminophen 1 tablet Oral 4x Daily PRN ipratropium 500 mcg Nebulization RT Q4H latanoprost 1 drop Both Eyes QAM levalbuterol 1.25 mg Nebulization RT Q4H levalbuterol 1.25 mg Nebulization Q2H PRN melatonin 1 mg Oral Nightly PRN mirtazapine 7.5 mg Oral Nightly nitroglycerin 0.4 mg Sublingual Q5 Min PRN ondansetron 4 mg Intravenous Q6H PRN pantoprazole 40 mg Oral QAM AC polyethylene glycol 17 g Oral Daily PRN predniSONE 40 mg Oral Daily senna 8.6 mg Oral BID PRN sodium chloride 2 spray Each Nare 4x Daily tamsulosin 0.4 mg Oral Nightly Total time of approximately 25 minutes was spent with the patient and/or patient's family, and/or on the patient's floor/unit, of which more than 50% was spent counseling and/or coord ination the patient's care as outlined above. Sam Valladares MD 07/22/2019 17:18 [facility] olph, Raymon Obrien [facility] - 07/22/2019 4:51 PM PDT PHARMACY SERVICES: ADMISSION MEDICATION REVIEW Ángela Crowley is a 88 y.o. female admitted on 07/20/2019. Patient is not a reliable historian. Location of Patient when reviewed: MEDICAL FLOOR Patient s prior to admit medication and over the counter (OTC) medications/herbal supplem ents list obtained from: ? Verbal interview: Patient name, strength, and directions ? Patient not interviewed or unable to supply information due to: Son manages medications ? Patient/family member provided ? MAR from SNF facility: ? Doctor's office: Dr. Millan ? Pharmacy list names: [facility]- ? State Prescription Monitoring Program ([place]) ? [employer] insurance reported information ? Care Everywhere ? Outside Information ? Other sources: Verbal interview with son, Yadiel, who manages medications. Vaccines up to date? Influenza No Pneumococcal Yes- Son states patient is due for the "other" vaccine but he does not know wh ich one. 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 Hold for loose stool Latanoprost 0.005% ophth marcelino 1 drop into both eyes every morning 1 drop into both eyes n ightly Multiple vitamins-minerals 1 tab by mouth daily Multiple vitamins-minerals cap (AREDS 2) 1 cap by mouth twice daily Polyvinyl alcohol 1.4% ophth marcelino 1 drop into both eyes as needed 2 drops into both eyes ev janae morning Places 5 minutes prior to prescription eye drops Senna 8.6 mg tab 1 tab by mouth daily 1 tab by mouth daily as needed for constipation Medication added: Medication: Prior to Admission Sig: Calcium carbonate 750 mg chew tab 2 tabs by mouth daily as needed for heartburn Patient denies use of recreational substances, tobacco or alcohol. Other: Medication: Prior to Admission Sig: Patient taking differently TOOTH CUTTER CLUTCH as: Buspirone 10 mg tab 1 tab by mouth daily Not taking Son states Dr. Millan told him to discontinue this medication when starting the Mirtazap ine. Best possible TOOTH CUTTER CLUTCH medication list after pharmacy review: PT REPORTED TAKING NOT TAKING Medication Sig Last Dose Dispense Doc. Demian albuterol (VENTOLIN HFA) 90 mcg/puff inhaler Inhale 2 puffs into the lungs every 4 hours a s needed for Wheezing. Taking Historical MD Demian albuterol-ipratropium 2.5-0.5 mg/3 mL SOLN Take 3 mLs by nebulization every 4 hours as nee ded for Increased Work of Breathing. Taking 360 mL Candido Link MD arformoterol (BROVANA) 15 MCG/2ML NEBU Take 2 mLs by nebulization 2 times daily. J44.90 Ta bert 180 mL Candido Link MD aspirin 81 mg chewable tablet Take 1 [...] J44.90 Taking 180 mL Candido Link MD busPIRone (BUSPAR) 10 MG tablet Take 1 tablet by mouth Daily. Patient not taking: Reporte d on 07/22/2019 Not Taking 90 tablet Candido Link MD calcium carbonate (TUMS EX) 750 MG chewable tablet Take 2 tablets by mouth Daily as needed for Heartburn. Taking Historical MD Demian CALCIUM CARBONATE PO Take 1,000 mg by mouth Daily. Taking Alfredo Arciniega MD carvedilol (COREG) 6.25 mg tablet Take 1 tablet by mouth 2 times daily (with breakfast & d inner). Taking 180 tablet Candido Link MD cetirizine (ZYRTEC) 10 mg tablet Take 1 tablet by mouth Daily. Taking 30 tablet Isabelle Link MD Cholecalciferol (VITAMIN D PO) Take 600 Units by mouth every morning. Taking Alfredo garcía MD dicyclomine (BENTYL) 10 mg capsule Take 10 mg by mouth Daily as needed for GI Upset. Te Cochran MD docusate sodium (COLACE) 250 MG capsule Take 250 mg by mouth every morning. Hold for loose stools Taking Alfredo Arciniega MD dorzolamide (TRUSOPT) 2% ophthalmic solution Place 1 drop into both eyes 2 times daily. Blane Donohue MD famotidine (PEPCID) 40 MG tablet Take [...] 90 tablet Funmilayo Link MD HYDROcodone-acetaminophen (NORCO) 7.5-325 mg per tablet Take 1 tablet by mouth 4 times millie ly as needed for Pain. Taking 120 tablet Candido Link MD latanoprost (XALATAN) 0.005% ophthalmic solution Place 1 drop into both eyes nightly. Jami Donohue MD loperamide (IMODIUM A-D) 2 MG tablet Take 2 mg by mouth Twice daily as needed for Diarrhe a. Taking Alfredo Arciniega MD metoprolol succinate (TOPROL-XL) 25 mg 24 hr tablet Take 1 tablet by mouth nightly. Taking 90 tablet Candido Link MD mirtazapine (REMERON) 7.5 MG tablet Take 1 tablet by mouth nightly. Taking 30 tablet Mario Link MD Multiple Vitamin (MULTIVITAMIN) tablet Take 1 tablet by mouth Daily. Taking Historical Pr MD kenny Multiple Vitamins-Minerals (PRESERVISION AREDS 2) CAPS Take 1 capsule by mouth 2 times millie ly. Taking [facility] nitroglycerin (NITROSTAT) 0.[address] 0.4 mg under the tongue every 5 minutes a s needed for Chest pain. Taking Historical MD Demian oxygen Inhale 3 L into the lungs [...] drops into both eyes every morning. Taking Alfredo Arciniega MD predniSONE (DELTASONE) 10 mg tablet Take 1 tablet by mouth Daily. Patient taking different ly: Take 10 mg by mouth 2 times daily. Taking Differently 90 tablet Candido hannah MD senna (SENNA) 8.6 mg tablet Take 1 tablet by mouth Daily as needed for Constipation. Te g Alfredo Arciniega MD tamsulosin (FLOMAX) 0.4 mg CAPS Take 1 capsule by mouth nightly. Taking 90 capsule Dalton Link MD tiotropium (SPIRIVA) 18 mcg inhalation capsule Inhale 1 capsule into the lungs Daily. Taki ng 90 capsule Candido Link MD UNABLE TO FIND Nebulizer Machine with accessories ALETHEA: 99 months. 1 each Candido Link MD Medication review performed and electronically signed by Ly Guido, Faculty Research Physician 16:27 Electronically signed by: Raymon Patel RPH 07/22/2019 16:50 Sam Durham MD - 07/21/2019 6:16 PM PDT [facility] Hospitalist Progress Note Ángela Crowley is a 88 y.o. female ASSESSMENT and PLAN: Active Hospital Problems Diagnosis Severe protein-calorie malnutrition *COPD exacerbation Resolved Hospital Problems No resolved problems to display. COPD exacerbation due to CAP/Viral pneumonia - Temp of 37.8 on arrival, with tachypnea and tachycardia - CXR shows right basilar opacity - Respiratory viral panel showed rhinovirus, may have bacterial superinfection as well - Continue ceftriaxone/azithromycin - WBC 13.3 on arrival, down to 8.1 today - Sputum Cx pending, legionella/st. 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 Reports she is eating about 50% of her meals . No nausea/vomiting. Reports doctors have told her chronically she has some findings in t he right lung base. VITALS: Temp: 36.3 C (97.3 F), Pulse: 88, Resp: 20, BP: 129/72, SpO2 98 %(Denies shortness of b reath. ) on nasal cannula with humidification Temp Min: 35.9 C (96.6 F) Max: 36.3 C (97.3 F) Weight: 53.8 kg (118 lb 9.7 oz) Intake/Output Summary (Last 24 hours) at 07/21/2019 1817 Last data filed at 07/21/2019 1342 Gross per 24 hour Intake 425 ml Output 200 ml Net 225 ml PHYSICAL EXAM: General: Alert, thin, no distress Cardiovascular: RRR, 2/6 systolic murmur Respiratory: Crackles in both bases Abdomen: Soft, NT Extremities: WWP Neurological: No acute distress, [place], pleasant and appropriate Ceja catheter present: No DIAGNOSTIC STUDIES: Available data and images were reviewed personally. Significant results and findings are a ddressed here or in the Assessment and Plan. Recent Results (from the past 24 hour(s)) Culture, MRSA Result Value Ref Range Culture 2+ Staphylococcus aureus,Methicillin resistant (MRSA) Respiratory pathogen panel, NAAT Result Value Ref Range Parainfluenza 1 Not Detected Not Detected Adenovirus Not Detected Not Detected Human Metapneumovirus Not Detected Not Detected Rhinovirus/Enterovirus Detected (A) Not Detected Parainfluenza 3 Not Detected Not Detected Influenza A and B RNA, NAAT Result Value Ref Range Influenza A PCR Negative Negative Influenza B PCR Negative Negative Basic Metabolic Panel Result Value Ref Range Na 145 136 - 145 mmol/L K 3.7 3.4 - 5.1 mmol/L Cl 106 98 - 107 mmol/L CO2 31 20 - 31 mmol/L Anion Gap 8 3 - 16 mmol/L Glucose 90 60 - 106 mg/dL BUN 22 9 - 23 mg/dL Creatinine 0.68 0.55 - 1.02 mg/dL eGFR if not >60 >=60 mL/min/1.73m2 Calcium 8.4 (L) 8.7 - 10.4 mg/dL BUN/Creatinine Ratio 32.4 CBC with Differential Result Value Ref Range WBC 8.1 4.0 - 11.0 K/uL RBC 3.36 (L) 3.70 - 5.20 M/uL Hemoglobin 9.7 (L) 11.5 - 16.0 g/dL Hematocrit 31.6 (L) 34.0 - 47.0 % MCV 94.0 83.0 - 101.0 fL MCH 28.9 28.0 - 35.0 pg MCHC 30.7 (L) 32.0 - 36.0 g/dL RDW-CV 14.6 <15.0 % RDW-SD 50.1 (H) 35.1 - 46.3 fL Platelet Count 207 140 - 440 K/uL MPV 10.1 6.5 - 12.4 fL % Neutrophils 87.4 (H) 45.0 - 82.0 % % Lymphocytes 7.4 (L) 20.0 - 45.0 % % Monocytes 4.8 4.0 - 12.0 % % Eosinophils 0.0 0.0 - 5.0 % % Basophils 0.0 0.0 - 1.0 % % Immature Granulocytes 0.4 0.0 - 0.4 % Absolute Neutrophils 7.09 1.80 - 8.50 K/uL Absolute Lymphocytes 0.60 0.60 - 3.20 K/uL Absolute Monocytes 0.39 0.00 - 1.00 K/uL Absolute Eosinophils 0.00 0.00 - 0.40 K/uL Absolute Basophils 0.00 0.00 - 0.10 K/uL Absolute Immature Granulocytes 0.03 0.00 - 0.03 K/uL % nRBC 0 0 - 2 per 100 WBCs Absolute nRBC 0.00 0.00 - 0.01 K/uL Magnesium Result Value Ref Range Magnesium 2.0 1.6 - 2.6 mg/dL Culture, Respiratory, Lower, Smear Result Value Ref Range Gram Stain Result 4+ White Blood Cells Gram Stain Result 2+ Epithelial cells Gram Stain Result 3+ Gram negative rods Gram Stain Result 1+ Gram positive cocci Xr Chest Ap Portable Result Date: 07/20/2019 XR CHEST AP PORTABLE 07/20/2019 8:19 AM HISTORY: SHORTNESS OF BREATH FEVER (75 YEARS OLD OR >). COMPARISON: 07/14/2019 Findings: Heart is normal in size. Subtle thickening of the right basilar interstitial markings. Chronic thickening of the central interstitial markings. Aor tic calcifications are present. No evidence of pneumothorax or pleural effusion. No acute os seous abnormality. No acute intrathoracic abnormality identified. Stable right basilar reticular opacities whe n compared with 07/14/2019. Dictated and Signed by: Bartolome Neff MD Electronically signed: 07/20/2019 10:27 AM Current Facility-Administered Medications: acetaminophen 650 mg Oral Q4H PRN aluminum & magnesium hydroxide-simethicone 30 mL Oral Q4H PRN aspirin 81 mg Oral Daily atorvaSTATin 20 mg Oral QAM azithromycin 500 mg Intravenous Daily benzonatate 200 mg Oral TID PRN brimonidine 1 drop Both Eyes BID budesonide 0.5 mg Nebulization RT BID busPIRone 10 mg Oral Daily carvedilol 6.25 mg Oral BID WC cefTRIAXone 1 g Intravenous Daily cetirizine 10 mg Oral Daily enoxaparin 40 mg Subcutaneous Daily ferrous sulfate 325 mg Oral Daily with breakfast fluticasone 1 spray Nasal Daily PRN fluticasone 2 spray Each Nare Daily furosemide 40 mg Oral Daily haloperidol lactate 2 mg Intravenous Q6H PRN HYDROcodone-acetaminophen 1 tablet Oral 4x Daily PRN ipratropium 500 mcg Nebulization RT Q4H latanoprost 1 drop Both Eyes QAM levalbuterol 1.25 mg Nebulization RT Q4H levalbuterol 1.25 mg Nebulization Q2H PRN melatonin 1 mg Oral Nightly PRN mirtazapine 7.5 mg Oral Nightly nitroglycerin 0.4 mg Sublingual Q5 Min PRN ondansetron 4 mg Intravenous Q6H PRN pantoprazole 40 mg Oral QAM AC polyethylene glycol 17 g Oral Daily PRN predniSONE 40 mg Oral Daily senna 8.6 mg Oral BID PRN sodium chloride 2 spray Each Nare 4x Daily tamsulosin 0.4 mg Oral Nightly Total time of approximately 25 minutes was spent with the patient and/or patient's family, and/or on the patient's floor/unit, of which more than 50% was spent counseling and/or coord ination the patient's care as outlined above. Sam Valladares MD 07/21/2019 18:17 [facility] Balaji Zavaleta RN - 07/20/2019 7:20 PM PDTPatient refusing to keep on oxygen and refusing o2 sat monitor. Ca ll out to dr napier doc umented in this encounter Plan of Treatment +--------+ + + + + | Date | Type | Specialty | Care Team | Description | +--------+ + + + + | 03/23/ | Office | Anticoagulation | García Harris, | | | 2019 | Visit | | [facility] [address] | | | | | | [place] | | | | | | [id number] | | | | | | | | +--------+ + + + + | 04/11/ | Appointment | Radiology | Shawn Michael | | | 2019 | | | MD [address] | | | | | | [address] [place] | | | | | | [place] [id number] | | | | | | [phone] | | | | | | | | +--------+ + + + + | 04/13/ | Office | Cardiology | Shawn Michael | | | 2019 | Visit | | MD [address] | | | | | | [address] [place] | | | | | | [place] [id number] | | | | | | [phone] | | | | | | | | +--------+ + + + + + +------+--------+ + + | Name | Type | Priori | Associated Diagnoses | Date/Time | | | | ty | | | + +------+--------+ + + | ED INFORMATION | MICHAEL | Routin | | 07/20/2019 7:58 AM | | EXCHANGE | | e | | PDT | + +------+--------+ + + documented as of this encounter Procedures + +--------+ + + + | Procedure Name | Priori | Date/Time | Associated Diagnosis | Comments | | | ty | | | | + +--------+ + + + | CBC WITH | Routin | 07/24/2019 | | Results for this | | DIFFERENTIAL | e | 5:16 AM | | procedure are in the | | | | PDT | | results section. | + +--------+ + + + | BASIC METABOLIC | Routin | 07/24/2019 | | Results for this | | PANEL | e | 5:16 AM | | procedure are in the | | | | PDT | | results section. | + +--------+ + + + | CBC WITH | Routin | 07/23/2019 | | Results for this | | DIFFERENTIAL | e | 5:16 AM | | procedure are in the | | | | PDT | | results section. | + +--------+ + + + | BASIC METABOLIC | Routin | 07/23/2019 | | Results for this | | PANEL | e | 5:16 AM | | procedure are in the | | | | PDT | | results section. | + +--------+ + + + | CBC WITH | Routin | 07/22/2019 | | Results for this | | DIFFERENTIAL | e | 4:36 AM | | procedure are in the | | | | PDT | | results section. | + +--------+ + + + | BASIC METABOLIC | Routin | 07/22/2019 | | Results for this | | PANEL | e | 4:36 AM | | procedure are in the | | | | PDT | | results section. | + +--------+ + + + | ECHO LIMITED | Routin | 07/21/2019 | | Results for this | | | e | 6:23 PM | | procedure are in the | | | | PDT | | results section. | + +--------+ + + + | CULTURE, | Routin | 07/21/2019 | | Results for this | | RESPIRATORY, LOWER, | e | 8:29 AM | | procedure are in the | | SMEAR | | PDT | | results section. | + +--------+ + + + | CBC WITH | Routin | 07/21/2019 | | Results for this | | DIFFERENTIAL | e | 4:45 AM | | procedure are in the | | | | PDT | | results section. | + +--------+ + + + | MAGNESIUM | Routin | 07/21/2019 | | Results for this | | | e | 4:45 AM | | procedure are in the | | | | PDT | | results section. | + +--------+ + + + | BASIC METABOLIC | Routin | 07/21/2019 | | Results for this | | PANEL | e | 4:45 AM | | procedure are in the | | | | PDT | | results section. | + +--------+ + + + | INFLUENZA A AND B | Routin | 07/21/2019 | | Results for this | | RNA, NAAT | e | 1:14 AM | | procedure are in the | | | | PDT | | results section. | + +--------+ + + + | RESPIRATORY VIRUS | Routin | 07/20/2019 | | Results for this | | ANTIGENS PROFILE | e | 6:51 PM | | procedure are in the | | | | PDT | | results section. | + +--------+ + + + | CULTURE, MRSA | Routin | 07/20/2019 | | Results for this | | | e | 6:33 PM | | procedure are in the | | | | PDT | | results section. | + +--------+ + + + | STREPTOCOCCUS | Routin | 07/20/2019 | | Results for this | | PNEUMONIAE AG, URINE | e | 6:15 PM | | procedure are in the | | | | PDT | | results section. | + +--------+ + + + | LEGIONELLA AG, EIA, | Routin | 07/20/2019 | | Results for this | | QUAL, URINE | e | 6:07 PM | | procedure are in the | | | | PDT | | results section. | + +--------+ + + + | URINALYSIS WITH | STAT | 07/20/2019 | | Results for this | | MICROSCOPIC WITH | | 11:48 AM | | procedure are in the | | CULTURE IF INDICATED | | PDT | | results section. | + +--------+ + + + | CBC W/AUTO | STAT | 07/20/2019 | | Results for this | | DIFFERENTIAL | | 8:45 AM | | procedure are in the | | | | PDT | | results section. | + +--------+ + + + | TROPONIN I | STAT | 07/20/2019 | | Results for this | | | | 8:45 AM | | procedure are in the | | | | PDT | | results section. | + +--------+ + + + | CULTURE, BLOOD | STAT | 07/20/2019 | | Results for this | | | | 8:45 AM | | procedure are in the | | | | PDT | | results section. | + +--------+ + + + | B TYPE NATRIURETIC | STAT | 07/20/2019 | | Results for this | | PEPTIDE | | 8:45 AM | | procedure are in the | | | | PDT | | results section. | + +--------+ + + + | LACTIC ACID | STAT | 07/20/2019 | | Results for this | | | | 8:45 AM | | procedure are in the | | | | PDT | | results section. | + +--------+ + + + | COMPREHENSIVE | STAT | 07/20/2019 | | Results for this | | METABOLIC PANEL | | 8:45 AM | | procedure are in the | | | | PDT | | results section. | + +--------+ + + + | XR CHEST AP PORTABLE | STAT | 07/20/2019 | | Results for this | | | | 8:34 AM | | procedure are in the | | | | PDT | | results section. | + +--------+ + + + | ECG 12 LEAD | STAT | 07/20/2019 | | Results for this | | | | 8:20 AM | | procedure are in the | | | | PDT | | results section. | + +--------+ + + + documented in this encounter Results CBC with Differential (07/24/2019 5:16 AM PDT) + + + + + + | Component | Value | Ref Range | Performed | Pathologist | | | | | At | Signature | + + + + + + | WBC | 11.8 (H) | 4.0 - 11.0 K/uL | [facility] | | | | | [facility] | | | | | | [facility] | | | | | | [facility] - | | | | | | LABORATORY | | + + + + + + | RBC | 3.11 (L) | 3.70 - 5.20 | [facility] [...] + + + + | Hematocrit | 29.2 (L) | 34.0 - 47.0 % | [...] + + + + | MCH | 28.3 | 28.0 - 35.0 pg | [facility] [...] + + + + | RDW-SD | 48.7 (H) | 35.1 - 46.3 fL | [...] + + + | % Monocytes | 9.5 | 4.0 - 12.0 % | [facility] [...] + + + | % Immature | 2.2 (H)Comment: | 0.0 - 0.4 % | [...] + + + + | Absolute | 9.31 (H) | 1.80 - 8.50 | [facility] | | | Neutrophils | | K/uL | [facility] | | | | | | MEDICAL | | | | | | CENTER - | | | | | | LABORATORY | | + + + + + + | Absolute | 1.04 | 0.60 - 3.20 | [facility] | [...] | Monocytes | | K/uL | [facility] | | | | [...] + + + | Absolute | 0.26 (H) | 0.00 - 0.03 | [facility] [...] + | [facility] | [address] | [place] | [phone] | | [facility] | | [address] | | | - LABORATORY | | | | + + + + + Basic Metabolic Panel (07/24/2019 5:16 AM PDT) + + + + [...] + + + + | Cl | 104 | 98 - 107 mmol/L | [facility] [...] + + + + | BUN | 29 (H) | 9 - 23 mg/dL | [...] mL/min/1.73m2 | [facility] | | | [facility] | RATE,ESTIMATED | | MEDICAL | | | | mL/min/1.52q9Xjoa than | | CENTER - | | [...] + + + + | BUN/Creatin | 39.2 | | [facility] | | | ine [...] [address] | [place] | [phone] | | [facility] | | [address] | | | - LABORATORY | | | | + + + + + CBC with Differential (07/23/2019 5:16 AM PDT) + + + + [...] + + + + | RBC | 3.06 (L) | 3.70 - 5.20 | [facility] [...] + + + + | Hematocrit | 29.0 (L) | 34.0 - 47.0 % | [facility] | | | | | [facility] | | | | | | MEDICAL | | | | | | CENTER - | | | | | | LABORATORY | | + + + + + + | MCV | 94.8 | 83.0 - 101.0 fL | [facility] | | | | | | [facility] | | | | | | MEDICAL | | | | | | CENTER - | | | | | | LABORATORY | | + + + + + + | MCH | 28.4 | 28.0 - 35.0 pg | [facility] [...] + + + + | RDW-SD | 49.6 (H) | 35.1 - 46.3 fL | [facility] | | | | | [facility] | | | | | | MEDICAL | | | | | | CENTER - | | | | | | LABORATORY | | + + + + + + | Platelet | 186 | 140 - 440 K/uL | [facility] [...] + + + + | % | 76.1 | 45.0 - 82.0 % | [facility] [...] + + + | % Monocytes | 12.0 | 4.0 - 12.0 % | [facility] [...] + + + + | Absolute | 6.25 | 1.80 - 8.50 | [facility] | | | Neutrophils | | K/uL | [facility] | | | | | | MEDICAL | | | | | | CENTER - | | | | | | LABORATORY | | + + + + + + | Absolute | 0.84 | 0.60 - 3.20 | [facility] | | | Lymphocytes | | K/uL | [facility] | | | | | | [facility]ICAL | | | | | | CENTER - | | | | | | LABORATORY | | + + + + + + | Absolute | 0.99 | 0.00 - 1.00 | [facility] | | | Monocytes | | K/uL | [facility] | [...] | 0.00 | 0.00 - 0.01 | [facility] | | | nRBC | | K/uL [...] [address] | [place] | [phone] | | [facility] | | [address] | | | - LABORATORY | | | | + + + + + Basic Metabolic Panel (07/23/2019 5:16 AM PDT) + + + + [...] + + + + | K | 4.0 | 3.4 - 5.1 | [facility] | [...] mL/min/1.73m2 | [facility] | | | [place] | RATE,ESTIMATED | | MEDICAL | | | | mL/min/1.43y0Timw than | | CENTER - | | [...] + + + + | BUN/Creatin | 35.8 | | [facility] | | | ine [...] + | [facility] | [address] | [place] | [phone] | | [facility] | | [address] | | | - LABORATORY | | | | + + + + + CBC with Differential (07/22/2019 4:36 AM PDT) + + + + + + | Component | Value | Ref Range | Performed | Pathologist | | | | | At | Signature | + + + + + + | WBC | 7.2 | 4.0 - 11.0 K/uL | [facility] | | | | | | [facility] | | | | | | MEDICAL | | | | | | CENTER - | | | | | | LABORATORY | | + + + + + + | RBC | 3.24 (L) | 3.70 - 5.20 | [facility] | | | | | M/uL | [facility] | | | | | | MEDICAL | | | | | | CENTER - | | | | | | LABORATORY | | + + + + + + | Hemoglobin | 9.2 (L) | 11.5 - 16.0 | [facility] | | | | | g/dL | [facility] | | | | | | MEDICAL | | | | | | CENTER - | | | | | | LABORATORY | | + + + + + + | Hematocrit | 30.1 (L) | 34.0 - 47.0 % | [facility] | | | | | | [facility] | | | | | | MEDICAL | | | | | | CENTER - | | | | | | LABORATORY | | + + + + + + | MCV | 92.9 | 83.0 - 101.0 fL | [facility] | | | | | | [facility] | | | | | | MEDICAL | | | | | | CENTER - | | | | | | LABORATORY | | + + + + + + | MCH | 28.4 | 28.0 - 35.0 pg | [facility] | | | | | | [facility] | | | | | | [facility] | | | | | | CENTER - | | | | | | LABORATORY | | + + + + + + | MCHC | 30.6 (L) | 32.0 - 36.0 | [facility] | | | | | g/dL | [facility] | | | | [...] + + + + | RDW-SD | 48.4 (H) | 35.1 - 46.3 fL | [facility] | | | | | | [facility] | | | | | | MEDICAL | | | | | | CENTER - | | | | | | LABORATORY | | + + + + + + | Platelet | 211 | 140 - 440 K/uL | [facility] [...] + + + + | % | 75.8 | 45.0 - 82.0 % | [facility] | | | Neutrophils | | | [facility] | | | | | | MEDICAL | | | | | | CENTER - | | | | | | LABORATORY | | + + + + + + | % | 11.3 (L) | 20.0 - 45.0 % | [facility] | | | Lymphocytes | | | [facility] | | | | | | MEDICAL | | | | | | CENTER - | | | | | | LABORATORY | | + + + + + + | % Monocytes | 11.9 | 4.0 - 12.0 % | [facility] [...] + + + + | Absolute | 5.44 | 1.80 - 8.50 | [facility] | | | Neutrophils | | K/uL | [facility] | | | | | | MEDICAL | | | | | | CENTER - | | | | | | LABORATORY | | + + + + + + | Absolute | 0.81 | 0.60 - 3.20 | [facility] | | | Lymphocytes | | K/uL | [facility] | | | | | | MEDICAL | | | | | | CENTER - | | | | | | LABORATORY | | + + + + + + | Absolute | 0.85 | 0.00 - 1.00 | [facility] | [...] [address] | [place] | [phone] | | [facility] | | [address] | | | - LABORATORY | | | | + + + + + Basic Metabolic Panel (07/22/2019 4:36 AM PDT) + + + + + [...] + + + + | Glucose | 81 | 60 - 106 mg/dL | [facility] [...] | 0.84 | 0.55 - 1.02 | [facility] | | | | | mg/dL | [facility] | | | | | | MEDICAL | | | | | | CENTER - | | | | | | LABORATORY | | + + + + + + | eGFR if not | >60Comment: GLOMERULAR | >=60 | [facility] | | | | FILTRATION | mL/min/1.73m2 | [facility] | | | [place] | RATE,ESTIMATED | | MEDICAL | | | | mL/min/1.98v4Skjg than | | CENTER - | | [...] | | | | mg/dL | [facility] | | | | | | MEDICAL | | | | | | CENTER - | | | | | | LABORATORY | | + + + + + + | BUN/Creatin | 32.1 | | [facility] | | | ine [...] [address] | [place] | [phone] | | [facility] | | [address] | | | - LABORATORY | | | | + + + + + Echo Limited (07/21/2019 6:23 PM PDT) + +---------+ + + + | Component | Value | Ref Range | Performed | Pathologist | | | | | At | Signature | + +---------+ + + + | Patient | 115 lbs | | [facility] | | | Weight | | | | | | (lbs) | | | | | + +---------+ + + + | Patient | 5'5" | | [facility] | | | Height | | | | | + +---------+ + + + | Ascending | 3.77 | cm | [facility] | | | aorta | | | | | + +---------+ + + + | AV mean | 9.18 | mmHg | [facility] | | | gradient | | | | | + +---------+ + + + | Aortic | 1.57 | cm2 | [facility] | | | Valve Area | | | | | | by | | | | | | Continuity | | | | | | VTI | | | | | + +---------+ + + + | LVOT | 1.63 | cm | [facility] | | | diameter | | | | | + +---------+ + + + | LVOT peak | 161.82 | cm/s | [facility] | | | magalie | | | | | + +---------+ + + + | LVOT peak | 32.92 | cm | [facility] | | | VTI | | | | | + +---------+ + + + | AV peak magalie | 236 | cm/s | [facility] | | + +---------+ + + + | AV VTI | 43.64 | cm | [facility] | | + +---------+ + + + | AV peak | 22.28 | mmHg | [facility] | | | gradient | | | | | + +---------+ + + + | AV LVOT | 8.82 | mmHg | [facility] | | | Peak | | | | | | Gradient | | | | | + +---------+ + + + | AV LVOT | 5.1 | mmHg | [facility] | | | Mean | | | | | | Gradient | | | | | + +---------+ + + + | AV | 82.88 | msec | [facility] | | | Acceleratio | | | | | | n Time | | | | | + +---------+ + + + | LVOT Mean | 103.17 | cm/s | [facility] | | | Velocity | | | | | + +---------+ + + + | AV Mean | 136.78 | cm/s | [facility] | | | Velocity | | | | | + +---------+ + + + | LA Major | 0.4364 | cm | [facility] | | + +---------+ + + + | AV Cusp | 1.02 | cm | [facility] | | | Seperation | | | | | | MM | | | | | + +---------+ + + + | LA Systolic | 3.46 | cm | [facility] | | | Diameter | | | | | | MM | | | | | + +---------+ + + + | LVEF-TTE | 65 | | [facility] | | | [...] CARLINE | | | ÁNGELA Room Number 424 | | | MAUREEN Patient Number [id number] Date of Study | | | 07/21/2019 Visit Number [id number] Referring | | | Physician MARIJA AVILA | | | MINE Accession | | | [id number] Grubber YAS FOSTER [facility] | | | Number Date of 1930 Interpreting | | | GLENDA MICHAEL MD | | | 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 Procedure | | | DateDate: 07/21/2019 Start: 05:49 PM Study Location: [facility] | | | Quality: Adequate visualization Indications:S/p TAVR (transcatheter | | | aortic valve replacement), [id number]/V42.2. Patient Status: | | | Routine Height: 65 inches Weight: 115 pounds BSA: 1.56 m^2 BMI: 19.14 | | | kg/m^2 Rhythm: Normal Sinus Rhythm HR: 88 bpm Conclusions Summary | | | The left ventricle is of normal size and systolic function. LVEF | | | visually estimated in the range of 65%. Aortic valve is echo dense | | | consistent with bioprosthetic valve replacement, with peak velocity | | | measuring 2.3 m/s. Mean/peak gradients are 11/22 mmHg. This is a | | | limited echocardiogram to assess TAVR gradients, which are slightly | | | less than patient's prior study of May 2019. Signature | | | | | | Electronically signed by GLENDA MICHAEL MD (Interpreting physician) on | | | 07/22/2019 at 01:22 PM | | | | | | Structures Left Atrium LA Dimension: 3.46 cm Left Ventricle EF | | | Estimated: 65% CO: 6.04 l/min | | | CI: 3.87 l/min*m^2 LVOT Diameter: 1.63 cm Left Ventricle Findings The | | | left ventricle is of normal size and systolic function. LVEF visually | | | estimated in the range of 65%. MiscellaneousAorta Ascending Aorta: | | | 3.77 cm LVOT Diameter: 1.63 cm Valves Aortic Valve Peak Velocity: | | | 236 cm/s Mean Velocity: 136.78 cm/s Peak Gradient: | | | 22.28 mmHg Mean Gradient: 9.18 mmHg Area | | | (continuity): 1.57 cm^2 Acceleration Time: 82.9 msec AV | | | VTI: 43.64 cm Cusp Separation: 1.02 cm Aortic Valve Findings Aortic | | | valve is echo dense consistent with bioprosthetic valve replacement, | | | with peak velocity measuring 2.3 m/s. Mean/peak gradients are 11/22 | | | mmHg. LVOT Peak Velocity: 161.82 cm/s Mean Velocity: | | | 103.17 cm/s Peak Gradient: 8.82 mmHg Mean Gradient: | | | 5.1 mmHg LVOT Diameter: 1.63 cm LVOT VTI: 32.92 | | | cm | | | | | | Summary | | | The left ventricle is of normal size and systolic function. LVEF visually | | | estimated in the range of 65%. | | | Aortic valve is echo dense consistent with bioprosthetic valve | | | replacement, with peak velocity measuring 2.3 m/s. Mean/peak gradients are | | | 11/22 mmHg. | | | This is a limited echocardiogram to assess TAVR gradients, which are | | | slightly less than patient's prior study of May 2019. | | | | | | Signature | | | | | | | | | | | | | | | | | |Structures | | | | | | Left Atrium | | | | | | LA Dimension: 3.46 cm | | | | | | Left Ventricle | | | | | | EF Estimated: 65% | | | | | | CO: 6.04 l/min CI: 3.87 l/min*m^2 | | | LVOT Diameter: 1.63 cm | | | | | | Left Ventricle Findings | | | The left ventricle is of normal size and systolic function. LVEF visually | | | estimated in the range of 65%. | | | | | |Miscellaneous | | |Aorta | | | | | | Ascending Aorta: 3.77 cm | | | LVOT Diameter: 1.63 cm | | | | | |Valves | | | | | | Aortic Valve | | | | | | Peak Velocity: 236 cm/s Mean Velocity: 136.78 cm/s | | | Peak Gradient: 22.28 mmHg Mean Gradient: 9.18 mmHg | | | Area (continuity): 1.57 cm^2 Acceleration Time: 82.9 msec | | | AV VTI: 43.64 cm | | | | | | Cusp Separation: 1.02 cm | | | | | | Aortic Valve Findings | | | Aortic valve is echo dense consistent with bioprosthetic valve | | | replacement, with peak velocity measuring 2.3 m/s. Mean/peak gradients | | | are 11/22 mmHg. | | | | | | LVOT | | | | | | Peak Velocity: 161.82 cm/s Mean Velocity: 103.17 cm/s | | | Peak Gradient: 8.82 mmHg Mean Gradient: 5.1 mmHg | | | LVOT Diameter: 1.63 cm LVOT VTI: 32.92 cm | | | | | + + -+ + + | Procedure Note | + + | Kofi Bullock Results In - 07/22/2019 1:23 PM PDT Transthoracic Echocardiography Report | | (TTE) Demographics Patient Name CARLINE CHAMPAGNE Room Number 424 | | MAUREEN Patient Number [id number] Date of Study 07/21/2019 Visit | | Number [id number] Referring Physician MARIJA AVILA | | MINE Grubber | | YAS FOSTER, [facility] Number Date of 1930 Interpreting | | GLENDA MICHAEL MD Physician Age 88 | | 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 LVEF visually estimated in the range of 65%. Aortic valve is echo | | dense consistent with bioprosthetic valve replacement, with peak velocity measuring 2.3 | | m/s. Mean/peak gradients are 11/22 mmHg. This is a limited echocardiogram to assess | | TAVR gradients, which are slightly less than patient's prior study of May 2019. | | Signature | | at | | 01:22 PM Structures Left | | Atrium LA Dimension: 3.46 cm Left Ventricle EF Estimated: 65% CO: 6.04 l/min | | CI: 3.87 l/min*m^2 LVOT Diameter: 1.63 cm Left Ventricle Findings The | | left ventricle is of normal size and systolic function. LVEF visually estimated in the | | range of 65%.MiscellaneousAorta Ascending Aorta: 3.77 cm LVOT Diameter: 1.63 cmValves | | Aortic Valve Peak Velocity: 236 cm/s Mean Velocity: 136.78 cm/s Peak | | Gradient: 22.28 mmHg Mean Gradient: 9.18 mmHg Area (continuity): 1.57 cm^2 | | Acceleration Time: 82.9 msec AV VTI: 43.64 cm Cusp Separation: 1.02 cm Aortic | | Valve Findings Aortic valve is echo dense consistent with bioprosthetic valve | | replacement, with peak velocity measuring 2.3 m/s. Mean/peak gradients are 11/22 mmHg. | | LVOT Peak Velocity: 161.82 cm/s Mean Velocity: 103.17 cm/s Peak Gradient: 8.82 | | mmHg Mean Gradient: 5.1 mmHg LVOT Diameter: 1.63 cm LVOT VTI: | | 32.92 cm | |Technical Quality: Adequate visualization | | | |Indications:S/p TAVR (transcatheter aortic valve replacement), bioprosthetic | |Z95.3/V42.2. | | | |Patient Status: Routine | | | |Height: 65 inches Weight: 115 pounds BSA: 1.56 m^2 BMI: 19.14 kg/m^2 | | | |Rhythm: Normal Sinus Rhythm HR: 88 bpm | | | | Conclusions | | | | Summary | | The left ventricle is of normal size and systolic function. LVEF visually | | estimated in the range of 65%. | | Aortic valve is echo dense consistent with bioprosthetic valve | | replacement, with peak velocity measuring 2.3 m/s. Mean/peak gradients are | | 11/22 mmHg. | | This is a limited echocardiogram to assess TAVR gradients, which are | | slightly less than patient's prior study of May 2019. | | | | Signature | | | | | | | | | | | |Structures | | | | Left Atrium | | | | LA Dimension: 3.46 cm | | | | Left Ventricle | | | | EF Estimated: 65% | | | | CO: 6.04 l/min CI: 3.87 l/min*m^2 | | LVOT Diameter: 1.63 cm | | | | Left Ventricle Findings | | The left ventricle is of normal size and systolic function. LVEF visually | | estimated in the range of 65%. | | | |Miscellaneous | |Aorta | | | | Ascending Aorta: 3.77 cm | | LVOT Diameter: 1.63 cm | | | |Valves | | | | Aortic Valve | | | | Peak Velocity: 236 cm/s Mean Velocity: 136.78 cm/s | | Peak Gradient: 22.28 mmHg Mean Gradient: 9.18 mmHg | | Area (continuity): 1.57 cm^2 Acceleration Time: 82.9 msec | | AV VTI: 43.64 cm | | | | Cusp Separation: 1.02 cm | | | | Aortic Valve Findings | | Aortic valve is echo dense consistent with bioprosthetic valve | | replacement, with peak velocity measuring 2.3 m/s. Mean/peak gradients | | are 11/22 mmHg. | | | | LVOT | | | | Peak Velocity: 161.82 cm/s Mean Velocity: 103.17 cm/s | | Peak Gradient: 8.82 mmHg Mean Gradient: 5.1 mmHg | | LVOT Diameter: 1.63 cm LVOT VTI: 32.92 cm | + + + +---------+ + + | Performing | Address | City/State/Zipcode | Phone Number | | Organization | | | | + +---------+ + + | [facility] | | | | + +---------+ + + Culture, Respiratory, Lower, Smear (07/21/2019 8:29 AM PDT) + + + + + + | Component | Value | Ref Range | Performed | Pathologist | | | | | At | Signature | + + + + + + | Culture | 4+ Pseudomonas | | [facility] | | | | aeruginosaComment: | | [facility] | | | | Consider therapy with | | MEDICAL | | | | maximum doses of an | | CENTER - | | | | anti-pseudomonal | | LABORATORY | | | | penicillin | | | | | | (carboxypenicillin or | | | | | | ureidopenicillin) or | | | | | | ceftazidime in | | | | | | combination with an | | | | | | aminoglycoside for | | | | | | serious infections. This | | | | | | organism is known to | | | | | | possess inducible | | | | | | beta-lactamases. | | | | | | Isolates may become | | | | | | resistant to all | | | | | | cephalosporins after | | | | | | initiation of therapy. | | | | | | Avoid | | | | | | beta-lactam/beta-lactama | | | | | | se inhibitor | | | | | | combinations. | | | | + + + + + + | Gram Stain | 4+ White Blood Cells | | [facility] | | | Result | | | [facility] | | | | | | MEDICAL | | | | | | CENTER - | | | | | | LABORATORY | | + + + + + + | Gram Stain | 2+ Epithelial cells | | [facility] | | | Result | | | [facility] | | | | | | MEDICAL | | | | | | CENTER - | | | | | | LABORATORY | | + + + + + + | Gram Stain | 3+ Gram negative rods | | [facility] | | | Result | | | [facility] | | | | | | MEDICAL | | | | | | CENTER - | | | | | | LABORATORY | | + + + + + + | Gram Stain | 1+ Gram positive cocci | | [facility] | | | Result | | | [facility] | | [...] | + + +--------+ + | Pseudomonas | Ceftazidime | | <=1 ug/mL: | | aeruginosa | | | Sensitive | + + +--------+ + | Pseudomonas | Ciprofloxacin | | <=0.25 ug/mL: | | aeruginosa | | | Sensitive | + + +--------+ + | Pseudomonas | Gentamicin | | <=1 ug/mL: | | aeruginosa | | | Sensitive | + + +--------+ + | Pseudomonas | Meropenem | | <=0.25 ug/mL: | | aeruginosa | | | Sensitive | + + +--------+ + | Pseudomonas | Tobramycin | | <=1 ug/mL: | | aeruginosa | | | Sensitive | + + +--------+ + + + + + + | Performing | Address | City/State/Zipcode | Phone Number | | Organization | | | | + + + + + | [facility] | [address] | [place] | [phone] | | [facility] | | [address] | | | - LABORATORY | | | | + + + + + Magnesium (07/21/2019 4:45 AM PDT) + +-------+ + + + | Component | Value | Ref Range | Performed | Pathologist | | | | | At | Signature | + +-------+ + + + | Magnesium | 2.0 | 1.6 - 2.6 mg/dL | [facility] [...] + | [facility] | [address] | [place] | [phone] | | [facility] | | [address] | | | - LABORATORY | | | | + + + + + CBC with Differential (07/21/2019 4:45 AM PDT) + + + + + + | Component | Value | Ref Range | Performed | Pathologist | | | | | At | Signature | + + + + + + | WBC | 8.1 | 4.0 - 11.0 K/uL | [facility] | | | | | | [facility] | | | | | | MEDICAL | | | | | | CENTER - | | | | | | LABORATORY | | + + + + + + | RBC | 3.36 (L) | 3.70 - 5.20 | [facility] [...] + + + + | Hematocrit | 31.6 (L) | 34.0 - 47.0 % | [facility] | | | | | | [facility] | | | | | | MEDICAL | | | | | | CENTER - | | | | | | LABORATORY | | + + + + + + | MCV | 94.0 | 83.0 - 101.0 fL | [facility] [...] + + + + | Platelet | 207 | 140 - 440 K/uL | [facility] [...] + + + + | % | 87.4 (H) | 45.0 - 82.0 % | [facility] | | | Neutrophils | | | [facility] | | | | | | MEDICAL | | | | | | CENTER - | | | | | | LABORATORY | | + + + + + + | % | 7.4 (L) | 20.0 - 45.0 % | [...] + + + + | Absolute | 7.09 | 1.80 - 8.50 | [facility] | | | Neutrophils | | K/uL | [facility] | | | | | | MEDICAL | | | | | | CENTER - | | | | | | LABORATORY | | + + + + + + | Absolute | 0.60 | 0.60 - 3.20 | [facility] | | | Lymphocytes | | K/uL | [facility] | | | | | | MEDICAL | | | | | | CENTER - | | | | | | LABORATORY | | + + + + + + | Absolute | 0.39 | 0.00 - 1.00 | [facility] | [...] + | [facility] | [address] | [place] | [phone] | | [facility] | | [address] | | | - LABORATORY | | | | + + + + + Basic Metabolic Panel (07/21/2019 4:45 AM PDT) + + + + + [...] + + + + | Glucose | 90 | 60 - 106 mg/dL | [facility] [...] | 0.68 | 0.55 - 1.02 | [facility] | [...] | | | FILTRATION | mL/min/1.73m2 | [facility] | | | BENINESE | RATE,ESTIMATED | | MEDICAL | | | | mL/min/1.72f4Oyte than | | CENTER - | | [...] | | | | | mg/dL | [facility] | | | | | | MEDICAL | | | | | | CENTER - | | | | | | LABORATORY | | + + + + + + | BUN/Creatin | 32.4 | | [facility] | | | ine [...] [address] | [place] | [phone] | | [facility] | | [address] | | | - LABORATORY | | | | + + + + + Influenza A and B RNA, NAAT (07/21/2019 1:14 AM PDT) + + + + + + | Component | Value | Ref Range | Performed | Pathologist | | | | | At | Signature | + + + + + + | Influenza A | Negative | Negative | [facility] | | | PCR | | | [facility] | | | | | | MEDICAL | | | | | | CENTER - | | | | | | LABORATORY | | + + + + + + | Influenza B | Negative | Negative | [facility] | | | PCR | | | [facility] | | [...] + | [facility] | [address] | [place] | [phone] | | [facility] | | [address] | | | - LABORATORY | | | | + + + + + Respiratory pathogen panel, NAAT (07/20/2019 6:51 PM PDT) + + + + + [...] + + + + | Rhinovirus/ | Detected (A) | Not Detected | [facility] | | | Enterovirus | | | [facility] | | | | | | MEDICAL | | | | | | CENTER - | | | | | | LABORATORY | | + + + + + + | Parainfluen | Not Detected | Not Detected | [facility] | | | za 3 | | | [facility] WEE[facility] | | [...] [address] | [place] | [phone] | | [facility] | | [address] | | | - LABORATORY | | | | + + + + + Culture, MRSA (07/20/2019 6:33 PM PDT) + + + + + + | Component | Value | Ref Range | Performed | Pathologist | | | | | At | Signature | + + + + + + | Culture | 2+ Staphylococcus | | [facility] | | | | aureus,Methicillin | | [facility] | | | | resistant (MRSA)Comment: | [...] | [address] | [place] | [phone] | | [facility] | | [address] | | | - LABORATORY | | | | + + + + + Streptococcus Pneumoniae Ag, Urine (07/20/2019 6:15 PM PDT) + + + + + + | Component | Value | Ref Range | Performed | Pathologist | | | | | At | Signature | + + + + + + | Specimen | Urine | | [facility] | | | Source | | | LAB [facility] | | | | | | - BKR | | + + + + + + | Streptococc | Positive (A)Comment: | Negative | [facility] | | | us | Reported pos strep ag ur | | LAB [facility] | | | pneumoniae | to Yan Moy at 4:33 | | - BKR | | | | p.m. 07/26/19. No fax | | | | | | required. [facility] | | | | + + + + + + | Body Fluid | Not Indicated | | [facility] | | | Culture, | | | LAB [facility] | | | Ster[facility] | | | - BKR | | + + + + + + | Organism ID | Not indicated. | | REFERENCE | | | | | | LAB [facility] | | | | | | - BKR | | + + + + + + | Please note | CommentComment: Patel | | REFERENCE | | | | of [place] [employer] | | LAB [facility] | | | | standards require a | | - BKR | | | | culture to beperformed | | | | | | on CSF specimens | | | | | | submitted for bacterial | | | | | | antigen testing.(CAP | | | | | | [id number]) Urine | | | | | | specimens will not be | | | | | | cultured. | | | | + + + + + + + + | Specimen | + + | Urine | + + + + + | Narrative | Performed At | + + + | Performed at: 01 - [facility] [place] [address], | REFERENCE LAB | | [place] [id number] Farrowing Worker: Varinder Negron MD, Phone: | REJI [facility] | | [phone] | | + + + + + + + + | Performing | Address | City/State/Zipcode | Phone Number | | Organization | | | | + + + + + | REFERENCE LAB | [address] [facility] | [place], [place] | [phone] | | REJI CHAVEZ | [facility] | [address] | | + + + + + Legionella, Ag, EIA, Qual, Urine (07/20/2019 6:07 PM PDT) + + + + + + | Component | Value | Ref Range | Performed | Pathologist | | | | | At | Signature | + + + + + + | L. | NegativeComment: | Negative | REFERENCE | | | pneumophila | Presumptive negative for | | LAB [facility] | | | Serogp 1 | L. pneumophila | | - BKR | | | Ur Ag | serogroup 1 antigen in | | | | | | urine,suggesting no | | | | | | recent or current | | | | | | infection. Legionnaires' | | | | | | diseasecannot be ruled | | | | | | out since other | | | | | | serogroups and species | | | | | | may also causedisease. | | | | + + + + + + + + | Specimen | + + | Urine - Urine | | specimen obtained by | | clean catch | | procedure (specimen) | + + + + + | Narrative | Performed At | + + + | Performed at: 01 - [facility] [address], | REFERENCE LAB | | [place], [place] [id number] Farrowing Worker: Leonid Leroy MD, Phone: | [facility] | | [phone] | | + + + + + + + + | Performing | Address | City/State/Zipcode | Phone Number | | Organization | | | | + + + + + | REFERENCE LAB | [address] | [place] | [phone] | | [facility] - [facility] | [address] | [address] | | + + + + + Urinalysis with Microscopic with Culture if Indicated (07/20/2019 11:48 AM PDT) + + + + + [...] + + + + | Specific | 1.014 | 1.001 - 1.030 | [facility] | | | [place], | | | [facility] | | [...] + + + + | Leukocyte | Trace (A) | Negative | [facility] | | | Esterase, | | | [facility] | | | Urine | | | MEDICAL | | | | | | CENTER - | | | | | | LABORATORY | | + + + + + + | Urobilinoge | 4.0 mg/dL (A) | 0.2 mg/dL, 1.0 | [facility] | | | n, Urine | | mg/dL, Negative | [facility] | | | | | | MEDICAL | | | | | | CENTER - | | | | | | LABORATORY | | + + + + + + | White Blood | 0-2 | 0 - 2 /HPF | [facility] | | | Cells, | | | [facility] | | [...] [address] | [place] | [phone] | | [facility] | | [address] | | | - LABORATORY | | | | + + + + + Culture, Blood (07/20/2019 8:45 AM PDT) + + + + + [...] [address] | [place] | [phone] | | [facility] | | [address] | | | - LABORATORY | | | | + + + + + Lactic Acid (07/20/2019 8:45 AM PDT) + +-------+ + + + [...] [address] | [place] | [phone] | | [facility] | | [address] | | | - LABORATORY | | | | + + + + + B Type Natriuretic Peptide (07/20/2019 8:45 AM PDT) + +---------+ + + + | Component | Value | Ref Range | Performed | Pathologist | | | | | At | Signature | + +---------+ + + + | BNP | 350 (H) | <100 pg/mL | [facility] | | | | | | [facility] | | | | | [...] + | [facility] | [address] | [place] | [phone] | | [facility] | | [address] | | | - LABORATORY | | | | + + + + + Troponin I (07/20/2019 8:45 AM PDT) + + + + + [...] | | | | | | [employer] | | | | | [...] [address] | [place] | [phone] | | [facility] | | [address] | | | - LABORATORY | | | | + + + + + Comprehensive Metabolic Panel (07/20/2019 8:45 AM PDT) + + + + + [...] mL/min/1.73m2 | [facility] | | | [facility]IN[facility] | RATE,ESTIMATED | | MEDICAL | | | | mL/min/1.26p8Pomy than | | CENTER - | | [...] + + + + | Calcium | 9.1 | 8.7 - 10.4 | [facility] | | | | | mg/dL | [facility] | | | | | | MEDICAL | | | | | | CENTER - | | | | | | LABORATORY | | + + + + + + | Albumin | 3.8 | 3.2 - 4.8 g/dL | [facility] | | | | | | [facility] | | | | | | MEDICAL | | | | | | CENTER - | | | | | | LABORATORY | | + + + + + + | Bilirubin | 0.8 | 0.3 - 1.2 mg/dL | [facility] | | | Total | | | [facility] | | | | | | MEDICAL | | | | | | CENTER - | | | | | | LABORATORY | | + + + + + + | Total | 6.5 | 5.7 - 8.2 g/dL | [facility] [...] + + + + | ALT | 14 | 10 - 49 U/L | [facility] | | | | | | [facility] | | | | | | MEDICAL | | | | | | CENTER - | | | | | | LABORATORY | | + + + + + + | Alkaline | 129 (H) | 46 - 116 U/L | [facility] | | | Phosphatase | | | [facility] | | | | | | MEDICAL | | | | | | CENTER - | | | | | | LABORATORY | | + + + + + + | Globulin | 2.7 | 2.1 - 3.8 g/dL | [facility] | | | | | | [facility] | | | | | | MEDICAL | | | | | | CENTER - | | | | | | LABORATORY | | + + + + + + | Albumin/Sarika | 1.4 | 0.8 - 1.9 | [facility] | | | bulin Ratio | | | [facility] | | | | | | MEDICAL | | | | | | CENTER - | | | | | | LABORATORY | | + + + + + + | BUN/Creatin | 22.7 | | [facility] | | | ine [...] + | [facility] | [address] | [place] | [phone] | | [facility] | | [address] | | | - LABORATORY | | | | + + + + + CBC w/ Auto Differential (07/20/2019 8:45 AM PDT) + + + + + [...] + + + + | RBC | 4.03 | 3.70 - 5.20 | [facility] | | | | | M/uL | [facility] | | | | | | MEDICAL | | | | | | CENTER - | | | | | | LABORATORY | | + + + + + + | Hemoglobin | 11.4 (L) | 11.5 - 16.0 | [facility] | | | | | g/dL | [facility] | | | | | | MEDICAL | | | | | | CENTER - | | | | | | LABORATORY | | + + + + + + | Hematocrit | 37.9 | 34.0 - 47.0 % | [facility] | | | | | | [facility] | | | | | | MEDICAL | | | | | | CENTER - | | | | | | LABORATORY | | + + + + + + | MCV | 94.0 | 83.0 - 101.0 fL | [facility] | | | | | | [facility] | | | | | | MEDICAL | | | | | | CENTER - | | | | | | LABORATORY | | + + + + + + | MCH | 28.3 | 28.0 - 35.0 pg | [facility] [...] + + + + | RDW-SD | 49.9 (H) | 35.1 - 46.3 fL | [facility] | | | | | | [facility] | | | | | | MEDICAL | | | | | | CENTER - | | | | | | LABORATORY | | + + + + + + | Platelet | 251 | 140 - 440 K/uL | [facility] [...] + + + + | % | 82.3 (H) | 45.0 - 82.0 % | [facility] | | | Neutrophils | | | [facility] | | | | | | MEDICAL | | | | | | CENTER - | | | | | | LABORATORY | | + + + + + + | % | 6.9 (L) | 20.0 - 45.0 % | [...] + + + + | % | 1.2 | 0.0 - 5.0 % | [facility] | | | Eosinophils | | | [facility] | | | | | | MEDICAL [...] + + + + | Absolute | 10.98 (H) | 1.80 - 8.50 | [facility] | | | Neutrophils | | K/uL | [facility] | | | | | | MEDICAL | | | | | | CENTER - | | | | | | LABORATORY | | + + + + + + | Absolute | 0.92 | 0.60 - 3.20 | [facility] | | | Lymphocytes | | K/uL | [facility] | | | | | | MEDICAL | | | | | | CENTER - | | | | | | LABORATORY | | + + + + + + | Absolute | 1.17 (H) | 0.00 - 1.00 | [facility] [...] | [address] | [place] | [phone] | | [facility] | | [address] | | | - LABORATORY | | | | + + + + + XR Chest AP Portable (07/20/2019 8:34 AM PDT) + + | Specimen | + + | | + + + + + | Impressions | Performed At | + + + | No acute intrathoracic abnormality identified. Stable right | [facility] | | basilar reticular opacities when compared with 07/14/2019. Dictated | | | and Signed by: Bartolome Neff MD Electronically signed: | | | 07/20/2019 10:27 AM | | + + + + + + | Narrative | Performed At | + + + | XR CHEST AP PORTABLE 07/20/2019 8:19 AM HISTORY: SHORTNESS OF | [facility] | | BREATH FEVER (75 YEARS OLD OR >). COMPARISON: 07/14/2019 | | | Findings: Heart is normal in size. Subtle thickening of the right | | | basilar interstitial markings. Chronic thickening of the central | | | interstitial markings. Aortic calcifications are present. No evidence | | | of pneumothorax or pleural effusion. No acute osseous abnormality. | | | | | + + + + + | Procedure Note | + + | Kobe, Rad Results In - 07/20/2019 10:30 AM PDT XR CHEST AP PORTABLE 07/20/2019 8:19 AM | | | | HISTORY: SHORTNESS OF BREATH | | FEVER (75 YEARS OLD [place] >). | | | | COMPARISON: 07/14/2019 | | | | Findings: Heart is normal in size. Subtle thickening of the right basilar | | interstitial markings. Chronic thickening of the central interstitial markings. | | Aortic calcifications are present. No evidence of pneumothorax or pleural | | effusion. No acute osseous abnormality. | | | | IMPRESSION: | | No acute intrathoracic abnormality identified. | | | | Stable right basilar reticular opacities when compared with 07/14/2019. | | | | Dictated and Signed by: Bartolome Neff MD | | Electronically signed: 07/20/2019 10:27 AM | + + + +---------+ + + | Performing | Address | City/State/Zipcode | Phone Number | | Organization | | | | + +---------+ + + | [facility] | | | | + +---------+ + + ECG 12 lead (07/20/2019 8:20 AM PDT) + + + + + + | Component | Value | Ref Range | Performed | Pathologist | | | | | At | Signature | + + + + + + | VENTRICULAR | 110 | BPM | [facility] | | | RATE EKG | | | | | + + + + + + | ATRIAL RATE | 110 | BPM | [facility] | | [...] + + + + | Q-T | 292 | ms | [facility] | | | INTERVAL | | | | | + + + + + + | Q-T | 395 | ms | [facility] | | | INTERVAL | | | | | | (CORRECTED) | | | | | + + + + + + | P WAVE AXIS | 62 | degrees | [facility] | | + + + + + + | QRS AXIS | 62 | degrees | [facility] | | + + + + + + | T AXIS | 77 | degrees | [facility] | | + + + + + + | INTERPRETAT | Lead V6 cannot be | | [facility] | | | ION TEXT | interpretedSinus | | | | | | tachycardiaVoltage | | | | | | criteria for left | | | | | | ventricular | | | | | | hypertrophyProminent/pea | | | | | | ked T waves which may be | | | | | | secondary to LVH, | | | | | | hyperkalemia or | | | | | | hyperacute T waves of | | | | | | ischemiaT wave inversion | | | | | | in V2:consider ischemia | | | | | | or lead | | | | | | placementAbnormal | | | | | | ECGWhen compared with | | | | | | ECG of 14-JUL-2019 | | | | | | 09:09,T waves are now | | | | | | inverted in lead | | | | | | [id number] by UMESH | | | | | | LEONIDAS JOSEPH ([id number]) on | | | | | | 07/21/2019 5:17:49 AM | | | | + + [...] + | Diagnosis | + + | 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 | + + | Pneumonia due to infectious organism, unspecified laterality, unspecified part of lung | + + | Sepsis, due to unspecified organism, unspecified whether acute organ dysfunction | | present (HCC) | + + | Severe protein-calorie malnutrition (HCC) Other severe protein-calorie malnutrition | + + | Community acquired pneumonia of right lower lobe of lung | + + | Rhinovirus infection Rhinovirus infection in conditions classified elsewhere and of | | unspecified site | + + | Acute on chronic diastolic (congestive) heart failure (HCC) | + + | Coronary artery disease, angina presence unspecified, unspecified vessel or lesion | | type, unspecified whether [place] or transplanted heart | + + | Essential hypertension Unspecified essential hypertension | + + | Anxiety Anxiety state, unspecified | + + | Depression, unspecified depression type | + + | Generalized osteoarthritis Generalized osteoarthrosis, unspecified site | + + | halfway prescription opiate use | + + | Pneumonia of right lower lobe due to Pseudomonas species (HCC) | + + | Coronary artery disease involving [place] coronary artery of [place] heart without | | angina pectoris | + + | Generalized anxiety disorder | + + documented in this encounter Administered Medications + +--------+ +-------+------+------+ | Medication Order | MAR | Action | Dose | Rate | Site | | | Action | Date | | | | + +--------+ +-------+------+------+ | albuterol-ipratropium 2.5-0.5 | Given | 07/20/20 | 3 mLs | | | | mg/3 mL nebulizer solution 3 mL | | 19 8:18 | | | | | 3 mL, Nebulization, RT Once, Tue | | AM PDT | | | | | 07/20/19 at 0815, For 1 dose | | | | | | + +--------+ +-------+------+------+ +---+---+ | | | +---+---+ + +-------+ +-------+---+---+ | aspirin chewable tablet 81 mg | Given | 07/24/20 | 81 mg | | | | 81 mg, Oral, DAILY, First dose on | | 19 8:37 | | | | | 07/21/19 at 0900 | | AM PDT | | | | + +-------+ +-------+---+---+ +-------+ +-------+---+---+ | Given | 07/23/20 | 81 mg | | | | | 19 9:04 | | | | | | AM PDT | | | | +-------+ +-------+---+---+ | Given | 07/22/20 | 81 mg | | | | | 19 8:32 | | | | | | AM PDT | | | | +-------+ +-------+---+---+ +---+---+ | | | +---+---+ + +-------+ +-------+---+---+ | atorvaSTATin (LIPITOR) tablet | Given | 07/24/20 | 20 mg | | | | 20 mg 20 mg, Oral, EVERY | | 19 8:37 | | | | | MORNING, First dose on Fri | | AM PDT | | | | | 07/21/19 at 0900 | | | | | | + +-------+ +-------+---+---+ +-------+ +-------+---+---+ | Given | 07/23/20 | 20 mg | | | | | 19 9:04 | | | | | | AM PDT | | | | +-------+ +-------+---+---+ | Given | 07/22/20 | 20 mg | | | | | 19 8:33 | | | | | | AM PDT | | | | +-------+ +-------+---+---+ +---+---+ | | | +---+---+ + +---------+ +--------+-------+---+ | azithromycin (ZITHROMAX) 500 mg | New Bag | 07/21/20 | 500 mg | 255 | | | in sodium chloride 0.9% 250 mL | | 19 10:11 | | mL/hr | | | IVPB 500 mg, Intravenous, | | AM PDT | | | | | Administer over 1 Hours, DAILY, | | | | | | | First dose on Fri07/21/19 at | | | | | | | 0900, Keep in refrigerator., | | | | | | | Indications: acute bronchitis | | | | | | + +---------+ +--------+-------+---+ +---+---+ | | | +---+---+ + +---------+ +--------+-------+---+ | azithromycin (ZITHROMAX) 500 mg | New Bag | 07/22/20 | 500 mg | 255 | | | in sodium chloride 0.9% 250 mL | | 19 10:04 | | mL/hr | | | IVPB 500 mg, Intravenous, | | AM PDT | | | | | Administer over 1 Hours, DAILY, | | | | | | | First dose (after last | | | | | | | modification) on Fri07/22/19 at | | | | | | | 0900, For 1 dose, Keep in | | | | | | | refrigerator., Indications: acute | | | | | | | bronchitis | | | | | | + +---------+ +--------+-------+---+ +---+---+ | | | +---+---+ + +-------+ +--------+---+---+ | azithromycin (ZITHROMAX) tablet | Given | 07/20/20 | 500 mg | | | | 500 mg 500 mg, Oral, ONCE, Fri | | 19 10:31 | | | | | 07/20/19 at 1020, For 1 dose, | | AM PDT | | | | | Indications: Pneumonia | | | | | | + +-------+ +--------+---+---+ +---+---+ | | | +---+---+ + +-------+ +--------+---+---+ | brimonidine (ALPHAGAN) 0.2% | Given | 07/24/20 | 1 drop | | | | ophthalmic solution 1 drop 1 | | 19 8:38 | | | | | drop, Both Eyes, 2 TIMES DAILY, | | AM PDT | | | | | First dose on Fri07/20/19 at | | | | | | | 1400 | | | | | | + +-------+ +--------+---+---+ +-------+ +--------+---+---+ | Given | 07/23/20 | 1 drop | | | | | 19 8:18 | | | | | | PM PDT | | | | +-------+ +--------+---+---+ | Given | 07/23/20 | 1 drop | | | | | 19 9:07 | | | | | | AM PDT | | | | +-------+ +--------+---+---+ +---+---+ | | | +---+---+ + +-------+ +--------+---+---+ | budesonide (PULMICORT) | Given | 07/24/20 | 0.5 mg | | | | nebulizer solution 0.5 mg 0.5 | | 19 8:22 | | | | | mg, Nebulization, RT BID, First | | AM PDT | | | | | dose on Fri07/20/19 at 2100, RT | | | | | | | will administer. Shake well. | | | | | | | Protect from light. Rinse mouth | | | | | | | after use., | | | | | | + +-------+ +--------+---+---+ +-------+ +--------+---+---+ | Given | 07/23/20 | 0.5 mg | | | | | 19 7:49 | | | | | | PM PDT | | | | +-------+ +--------+---+---+ | Given | 07/23/20 | 0.5 mg | | | | | 19 7:50 | | | | | | AM PDT | | | | +-------+ +--------+---+---+ +---+---+ | | | +---+---+ + +-------+ +-------+---+---+ | busPIRone (BUSPAR) tablet 10 mg | Given | 07/24/20 | 10 mg | | | | 10 mg, Oral, DAILY, First dose | | 19 8:37 | | | | | on 07/21/19 at 0900 | | AM PDT | | | | + +-------+ +-------+---+---+ +-------+ +-------+---+---+ | Given | 07/23/20 | 10 mg | | | | | 19 9:04 | | | | | | AM PDT | | | | +-------+ +-------+---+---+ | Given | 07/22/20 | 10 mg | | | | | 19 8:32 | | | | | | AM PDT | | | | +-------+ +-------+---+---+ +---+---+ | | | +---+---+ + +-------+ +---------+---+---+ | carvedilol (COREG) tablet 12.5 | Given | 07/24/20 | 12.5 mg | | | | mg 12.5 mg, Oral, 2 TIMES DAILY | | 19 8:37 | | | | | WITH BREAKFAST & DINNER, First | | AM PDT | | | | | dose (after last modification) on | | | | | | | 07/23/19 at 1700, Hold for | | | | | | | HR<60 or SBP<100, | | | | | | + +-------+ +---------+---+---+ +-------+ +---------+---+---+ | Given | 07/23/20 | 12.5 mg | | | | | 19 6:00 | | | | | | PM PDT | | | | +-------+ +---------+---+---+ +---+---+ | | | +---+---+ + +-------+ +---------+---+---+ | carvedilol (COREG) tablet 6.25 | Given | 07/23/20 | 6.25 mg | | | | mg 6.25 mg, Oral, 2 TIMES DAILY | | 19 9:04 | | | | | WITH BREAKFAST & DINNER, First | | AM PDT | | | | | dose on Fri07/20/19 at 1700, | | | | | | | Hold for HR<60 or SBP<100, | | | | | | + +-------+ +---------+---+---+ +-------+ +---------+---+---+ | Given | 07/22/20 | 6.25 mg | | | | | 19 5:03 | | | | | | PM PDT | | | | +-------+ +---------+---+---+ | Given | 07/22/20 | 6.25 mg | | | | | 19 8:30 | | | | | | AM PDT | | | | +-------+ +---------+---+---+ +---+---+ | | | +---+---+ + +---------+ +-----+-------+---+ | cefepime (MAXIPIME) 1 g in | New Bag | 07/24/20 | 1 g | 100 | | | sodium chloride 0.9% 50 mL IVPB | | 19 6:45 | | mL/hr | | | 1 g, Intravenous, Administer over | | AM PDT | | | | | 30 Minutes, EVERY 8 HOURS (3 | | | | | | | times per day), First dose on Zofia | | | | | | | 07/22/19 at 1345, Activate | | | | | | | system and mix before use., | | | | | | | Indications: Pneumonia due to | | | | | | | Gram-Negative Organisms | | | | | | + +---------+ +-----+-------+---+ +---------+ +-----+-------+---+ | New Bag | 07/23/20 | 1 g | 100 | | | | 19 9:27 | | mL/hr | | | | PM PDT | | | | +---------+ +-----+-------+---+ | New Bag | 07/23/20 | 1 g | 100 | | | | 19 3:05 | | mL/hr | | | | PM PDT | | | | +---------+ +-----+-------+---+ +---+---+ | | | +---+---+ + +---------+ +-----+-------+---+ | cefTRIAXone (ROCEPHIN) 1 g in | New Bag | 07/20/20 | 1 g | 100 | | | sodium chloride 0.9% 50 mL IVPB | | 19 9:23 | | mL/hr | | | 1 g, Intravenous, Administer over | | AM PDT | | | | | 30 Minutes, ONCE, 07/20/19 | | | | | | | at 0840, For 1 dose, Activate | | | | | | | system and mix before use., | | | | | | | Indications: Pneumonia | | | | | | + +---------+ +-----+-------+---+ +---+---+ | | | +---+---+ + +---------+ +-----+-------+---+ | cefTRIAXone (ROCEPHIN) 1 g in | New Bag | 07/22/20 | 1 g | 100 | | | sodium chloride 0.9% 50 mL IVPB | | 19 8:23 | | mL/hr | | | 1 g, Intravenous, Administer over | | AM PDT | | | | | 30 Minutes, EVERY 24 HOURS | | | | | | | (Daily), First dose on Fri | | | | | | | 07/21/19 at 0900, Activate system | | | | | | | and mix before use., | | | | | | | Indications: Community Acquired | | | | | | | Pneumonia | | | | | | + +---------+ +-----+-------+---+ +---------+ +-----+-------+---+ | New Bag | 07/21/20 | 1 g | 100 | | | | 19 8:44 | | mL/hr | | | | AM PDT | | | | +---------+ +-----+-------+---+ +---+---+ | | | +---+---+ + +-------+ +-------+---+---+ | cetirizine (zyrTEC) tablet 10 | Given | 07/24/20 | 10 mg | | | | mg 10 mg, Oral, DAILY, First | | 19 8:37 | | | | | dose on 07/21/19 at 0900 | | AM PDT | | | | + +-------+ +-------+---+---+ +-------+ +-------+---+---+ | Given | 07/23/20 | 10 mg | | | | | 19 9:04 | | | | | | AM PDT | | | | +-------+ +-------+---+---+ | Given | 07/22/20 | 10 mg | | | | | 19 8:32 | | | | | | AM PDT | | | | +-------+ +-------+---+---+ +---+---+ | | | +---+---+ + +-------+ +--------+---+---+ | ciprofloxacin (CIPRO) tablet | Given | 07/24/20 | 500 mg | | | | 500 mg 500 mg, Oral, 2 TIMES | | 19 12:45 | | | | | DAILY, First dose on Fri07/24/19 | | PM PDT | | | | | at 1100, Give 2 hours before or | | | | | | | 6 hours after antacids, dairy, | | | | | | | calcium, iron, or zinc., | | | | | | | Indications: | | | | | | | Healthcare-Associated Pneumonia, | | | | | | | pseudomonas pneumonia | | | | | | + +-------+ +--------+---+---+ +---+---+ | | | +---+---+ + +-------+ +-------+---+ + | enoxaparin (LOVENOX) 40 mg/0.4 | Given | 07/24/20 | 40 mg | | Abdomen- | | mL injection 40 mg 40 mg, | | 19 9:00 | | | RLQ | | Subcutaneous, EVERY 24 HOURS | | AM PDT | | | | | (Daily), First dose on Fri | | | | | | | 07/20/19 at 1500 | | | | | | + +-------+ +-------+---+ + +-------+ +-------+---+ + | Given | 07/23/20 | 40 mg | | Abdomen- | | | 19 9:06 | | | RLQ | | | AM PDT | | | | +-------+ +-------+---+ + | Given | 07/22/20 | 40 mg | | Abdomen- | | | 19 8:35 | | | LLQ | | | AM PDT | | | | +-------+ +-------+---+ + +---+---+ | | | +---+---+ + +-------+ +--------+---+---+ | fentaNYL (PF) injection 25 mcg | Given | 07/20/20 | 25 mcg | | | | 25 mcg, Intravenous, ONCE, Tue | | 19 9:01 | | | | | 07/20/19 at 0815, For 1 dose | | AM PDT | | | | + +-------+ +--------+---+---+ +---+---+ | | | +---+---+ + +-------+ +--------+---+---+ | ferrous sulfate tablet 325 mg | Given | 07/24/20 | 325 mg | | | | 325 mg, Oral, DAILY WITH | | 19 8:37 | | | | | BREAKFAST, First dose on Fri | | AM PDT | | | | | 07/21/19 at 0800 | | | | | | + +-------+ +--------+---+---+ +-------+ +--------+---+---+ | Given | 07/23/20 | 325 mg | | | | | 19 9:04 | | | | | | AM PDT | | | | +-------+ +--------+---+---+ | Given | 07/22/20 | 325 mg | | | | | 19 8:31 | | | | | | AM PDT | | | | +-------+ +--------+---+---+ +---+---+ | | | +---+---+ + +-------+ + +---+---+ | fluticasone (FLONASE) 50 | Given | 07/24/20 | 2 sprays | | | | mcg/nasal spray 2 spray 2 spray, | | 19 8:38 | | | | | Each Nare, DAILY, First dose on | | AM PDT | | | | | 07/21/19 at 1600, Shake | | | | | | | gently., | | | | | | + +-------+ + +---+---+ +-------+ + +---+---+ | Given | 07/23/20 | 2 sprays | | | | | 19 9:07 | | | | | | AM PDT | | | | +-------+ + +---+---+ | Given | 07/22/20 | 2 sprays | | | | | 19 8:37 | | | | | | AM PDT | | | | +-------+ + +---+---+ +---+---+ | | | +---+---+ + +-------+ +-------+---+---+ | furosemide (LASIX) tablet 20 mg | Given | 07/20/20 | 20 mg | | | | 20 mg, Oral, DAILY, First dose | | 19 3:41 | | | | | on 07/20/19 at 1400 | | PM PDT | | | | + +-------+ +-------+---+---+ +---+---+ | | | +---+---+ + +-------+ +-------+---+---+ | furosemide (LASIX) tablet 40 mg | Given | 07/24/20 | 40 mg | | | | 40 mg, Oral, DAILY, First dose | | 19 8:37 | | | | | (after last modification) on Fri | | AM PDT | | | | | 07/21/19 at 0900 | | | | | | + +-------+ +-------+---+---+ +-------+ +-------+---+---+ | Given | 07/23/20 | 40 mg | | | | | 19 9:04 | | | | | | AM PDT | | | | +-------+ +-------+---+---+ | Given | 07/22/20 | 40 mg | | | | | 19 8:32 | | | | | | AM PDT | | | | +-------+ +-------+---+---+ +---+---+ | | | +---+---+ + +-------+ +------+---+---+ | haloperidol lactate (HALDOL) | Given | 07/20/20 | 2 mg | | | | injection 2 mg 2 mg, | | 19 7:16 | | | | | Intravenous, EVERY 6 HOURS PRN, | | PM PDT | | | | | Agitation, Delirium, Starting Tue | | | | | | | 07/20/19 at 1911 | | | | | | + +-------+ +------+---+---+ +---+---+ | | | +---+---+ + +-------+ +---------+---+---+ | HYDROcodone-acetaminophen | Given | 07/20/20 | 2 | | | | (NORCO) 5-325 mg per tablet 2 | | 19 10:31 | tablets | | | | tablet 2 tablet, Oral, ONCE, Tue | | AM PDT | | | | | 07/20/19 at 1020, For 1 dose | | | | | | + +-------+ +---------+---+---+ +---+---+ | | | +---+---+ + +-------+ + +---+---+ | HYDROcodone-acetaminophen | Given | 07/24/20 | 1 tablet | | | | (NORCO) 7.5-325 mg per tablet 1 | | 19 8:37 | | | | | tablet 1 tablet, Oral, 4 TIMES | | AM PDT | | | | | DAILY PRN, Pain, Starting Tue | | | | | | | 07/20/19 at 1330 | | | | | | + +-------+ + +---+---+ +-------+ + +---+---+ | Given | 07/23/20 | 1 tablet | | | | | 19 3:27 | | | | | | PM PDT | | | | +-------+ + +---+---+ | Given | 07/23/20 | 1 tablet | | | | | 19 9:04 | | | | | | AM PDT | | | | +-------+ + +---+---+ +---+---+ | | | +---+---+ + +-------+ +---------+---+---+ | ipratropium (ATROVENT) 500 | Given | 07/20/20 | 500 mcg | | | | mcg/2.5 mL nebulizer solution 500 | | 19 2:30 | | | | | mcg 500 mcg, Nebulization, RT | | PM PDT | | | | | Q6H, First dose on Fri07/20/19 | | | | | | | at 1500, RT will administer., | | | | | | + +-------+ +---------+---+---+ +---+---+ | | | +---+---+ + +-------+ +---------+---+---+ | ipratropium (ATROVENT) 500 | Given | 07/24/20 | 500 mcg | | | | mcg/2.5 mL nebulizer solution 500 | | 19 11:16 | | | | | mcg 500 mcg, Nebulization, RT | | AM PDT | | | | | Q4H, First dose (after last | | | | | | | modification) on Fri07/20/19 at | | | | | | | 1600, RT will administer., | | | | | | + +-------+ +---------+---+---+ +-------+ +---------+---+---+ | Given | 07/24/20 | 500 mcg | | | | | 19 8:12 | | | | | | AM PDT | | | | +-------+ +---------+---+---+ | Given | 07/24/20 | 500 mcg | | | | | 19 3:23 | | | | | | AM PDT | | | | +-------+ +---------+---+---+ +---+---+ | | | +---+---+ + +-------+ +--------+---+---+ | latanoprost (XALATAN) 0.005% | Given | 07/24/20 | 1 drop | | | | ophthalmic solution 1 drop 1 | | 19 8:38 | | | | | drop, Both Eyes, EVERY MORNING, | | AM PDT | | | | | First dose on Fri07/20/19 at | | | | | | | 1400 | | | | | | + +-------+ +--------+---+---+ +-------+ +--------+---+---+ | Given | 07/23/20 | 1 drop | | | | | 19 9:07 | | | | | | AM PDT | | | | +-------+ +--------+---+---+ | Given | 07/22/20 | 1 drop | | | | | 19 8:38 | | | | | | AM PDT | | | | +-------+ +--------+---+---+ +---+---+ | | | +---+---+ + +-------+ +---------+---+---+ | levalbuterol (XOPENEX) 0.63 | Given | 07/20/20 | 0.63 mg | | | | mg/3 mL nebulizer solution 0.63 | | 19 2:30 | | | | | mg 0.63 mg, Nebulization, RT | | PM PDT | | | | | Q6H, First dose on Fri07/20/19 | | | | | | | at 1500, RT will administer. | | | | | | | Protect from light., | | | | | | + +-------+ +---------+---+---+ +---+---+ | | | +---+---+ + +-------+ +---------+---+---+ | levalbuterol (XOPENEX) 1.25 | Given | 07/24/20 | 1.25 mg | | | | mg/3 mL nebulizer solution 1.25 | | 19 11:06 | | | | | mg 1.25 mg, Nebulization, RT | | AM PDT | | | | | Q4H, First dose on Fri07/20/19 | | | | | | | at 1600 | | | | | | + +-------+ +---------+---+---+ +-------+ +---------+---+---+ | Given | 07/24/20 | 1.25 mg | | | | | 19 8:01 | | | | | | AM PDT | | | | +-------+ +---------+---+---+ | Given | 07/24/20 | 1.25 mg | | | | | 19 3:23 | | | | | | AM PDT | | | | +-------+ +---------+---+---+ + +---+ | | | + +---+ | levalbuterol (XOPENEX) 1.25 | | | mg/3 mL nebulizer solution 1.25 | | | mg 1.25 mg, Nebulization, EVERY | | | 2 HOURS PRN, Shortness of Breath, | | | Starting Fri07/20/19 at 1509 | | + +---+ | | | + +---+ + +-------+ +---------+---+---+ | LORazepam (ATIVAN) tablet 0.25 | Given | 07/23/20 | 0.25 mg | | | | mg 0.25 mg, Oral, ONCE, Fri | | 19 12:24 | | | | | 07/23/19 at 1230, For 1 dose | | PM PDT | | | | + +-------+ +---------+---+---+ +---+---+ | | | +---+---+ + +-------+ +--------+---+---+ | mirtazapine (REMERON) tablet | Given | 07/23/20 | 7.5 mg | | | | 7.5 mg 7.5 mg, Oral, NIGHTLY, | | 19 8:19 | | | | | First dose on Fri07/20/19 at | | PM PDT | | | | | 2100 | | | | | | + +-------+ +--------+---+---+ +-------+ +--------+---+---+ | Given | 07/22/20 | 7.5 mg | | | | | 19 8:36 | | | | | | PM PDT | | | | +-------+ +--------+---+---+ | Given | 07/21/20 | 7.5 mg | | | | | 19 9:41 | | | | | | PM PDT | | | | +-------+ +--------+---+---+ +---+---+ | | | +---+---+ + +-------+ +-------+---+---+ | pantoprazole (PROTONIX) DR | Given | 07/24/20 | 40 mg | | | | tablet 40 mg 40 mg, Oral, DAILY | | 19 6:45 | | | | | BEFORE BREAKFAST, First dose on | | AM PDT | | | | | 07/21/19 at 0730, Do not cut | | | | | | | or crush., Indication: GERD | | | | | | + +-------+ +-------+---+---+ +-------+ +-------+---+---+ | Given | 07/23/20 | 40 mg | | | | | 19 6:30 | | | | | | AM PDT | | | | +-------+ +-------+---+---+ | Given | 07/22/20 | 40 mg | | | | | 19 6:14 | | | | | | AM PDT | | | | +-------+ +-------+---+---+ +---+---+ | | | +---+---+ + +-------+ +-------+---+---+ | predniSONE (DELTASONE) tablet | Given | 07/24/20 | 40 mg | | | | 40 mg 40 mg, Oral, DAILY, First | | 19 8:38 | | | | | dose on Fri07/20/19 at 1400, For | | AM PDT | | | | | 5 doses | | | | | | + +-------+ +-------+---+---+ +-------+ +-------+---+---+ | Given | 07/23/20 | 40 mg | | | | | 19 9:04 | | | | | | AM PDT | | | | +-------+ +-------+---+---+ | Given | 10/17/20 | 40 mg | | | | | 19 8:32 | | | | | | AM PDT | | | | +-------+ +-------+---+---+ +---+---+ | | | +---+---+ + +-------+ + +---+---+ | sodium chloride (OCEAN) 0.65% | Given | 07/24/20 | 2 sprays | | | | nasal spray 2 spray 2 spray, | | 19 11:02 | | | | | Each Nare, 4 TIMES DAILY, First | | AM PDT | | | | | dose on 07/21/19 at 1600 | | | | | | + +-------+ + +---+---+ +-------+ + +---+---+ | Given | 07/23/20 | 2 sprays | | | | | 19 8:19 | | | | | | PM PDT | | | | +-------+ + +---+---+ | Given | 07/23/20 | 2 sprays | | | | | 19 6:00 | | | | | | PM PDT | | | | +-------+ + +---+---+ +---+---+ | | | +---+---+ + +---------+ +--------+-------+---+ | sodium chloride 0.9% (NS) bolus | New Bag | 07/20/20 | 1,000 | 1000 | | | 1,000 mL 1,000 mL, Intravenous, | | 19 9:00 | mLs | mL/hr | | | Administer over 1 Hours, ONCE, | | AM PDT | | | | | Fri07/20/19 at 0815, For 1 dose | | | | | | + +---------+ +--------+-------+---+ +---+---+ | | | +---+---+ + +-------+ +--------+---+---+ | tamsulosin (FLOMAX) capsule 0.4 | Given | 07/22/20 | 0.4 mg | | | | mg 0.4 mg, Oral, NIGHTLY, First | | 19 8:36 | | | | | dose on Fri07/20/19 at 2100, Do | | PM PDT [...] +-------+ +--------+---+---+ +-------+ +--------+---+---+ | Given | 07/21/20 | 0.4 mg | | | | | 19 9:41 | | | | | | PM PDT | | | | +-------+ +--------+---+---+ +---+---+ | | | +---+---+ + +-------+ +--------+---+---+ | tamsulosin (FLOMAX) capsule 0.4 | Given | 07/24/20 | 0.4 mg | | | | mg 0.4 mg, Oral, DAILY AFTER | | 19 8:37 | | | | | BREAKFAST, First dose (after last | | AM PDT | | | | | modification) on 07/23/19 at | | | | | | | 1445, Do not crush or chew | | | | | | | capsule. If unable to swallow, | | | | | | | may open capsule and sprinkle | | | | | | | over acidic soft food | | | | | | | (applesauce, yogurt) or in a | | | | | | | small quantity of acidic fruit | | | | | | | juice (orange, grape). Administer | | | | | | | immediately (do not allow | | | | | | | granules to dissolve). Do not | | | | | | | administer via tube routes., | | | | | | + +-------+ +--------+---+---+ +-------+ +--------+---+---+ | Given | 07/23/20 | 0.4 mg | | | | | 19 3:20 | | | | | | PM [...]
--- OUTSIDE RECORDS SUMMARY | ~2020-03-14 | XMS | Encounter Summary ---
Demographics + + + | Address | [address] | | | [place] [address] | + + + | Home Phone | | + + + | Preferred Language | Unknown | + + + | Marital Status | | + + + | Gnosticism Affiliation | Unknown | + + + [...] Providers + +------+ + | Care Manager Of Financial Planning Name | Role | Phone | + [...] [place] | | | | | | [address] | | | | | | [phone] | | | +--------+ + + + [...] [place] | | | | | | [phone] | | | | | | | | +--------+ + + + + | 04/11/ | Appointment | Radiology | Shawn Michael | | 2019 | | | MD Marcelino [address] | | | | | | [address] | | | | | | [place] [address] | | | | | | [phone] | | | | | | | | +--------+ + + + + | 04/13/ | Office | Cardiology | Shawn Michael | | | 2019 | Visit | | MD Marcelino [address] | | | | | | [address] [place] | | | | | | [place] [address] | | | | | | [phone] | | | | | | | [...] Plan + + | Visit Type - TONG CARRIER - REPEAT VISIT | | Discipline - [...]
--- OUTSIDE RECORDS SUMMARY | ~2020-03-14 | XMS | Encounter Summary ---
Demographics + + + | Address | [address] | | | [place] [address] | + + + | Home Phone [...] Team Providers + +------+ + | Care Adjunct Political Science Instructor Name | Role | Phone | [...] 12/19/ | Home Care | [facility] [place] | Wanda Barbosa, | SN REPEAT VISIT | | 2019 | Visit | [place] [address] | RN | | | | | [place] | | | | | | [address] | | | | | | [phone] | | | +--------+ + + + [...] + + + | Blood Pressure | 128/70 | 12/20/2019 9:40 AM | | | | | PDT | | + + + + + | Pulse | 76 | 12/20/2019 9:40 AM | | | | | PDT | | + + + + + | Temperature | 36 C (96.8 F) | 12/20/2019 9:40 AM | | | | | PDT | | + + + + + | Respiratory Rate | 16 | 12/20/2019 9:40 AM | | | | | PDT | | + + + + + | Oxygen Saturation | 94% | 12/20/2019 9:40 AM | | | | | PDT [...] | | | | | [place] [address] | | | | | | [phone] | | | | | | | | +--------+ + + + + | 04/13/ | Office | Cardiology | Shawn Michael | | | 2019 | Visit | | MD Marcelino [address] | | | | | | [address] | | | | | | [place] [address] | | | | | | [phone] | | | | | | | [...] - REPEAT VISIT | | Discipline - Long-Term | + + + + +--------+--------+ + [...] 020 | | | interventio | | Long-Term | | | | | n | [...] | | Active | | | | Long-Term | | 020 | | | interventio [...] | | Active | | | | Long-Term | | 020 | | | interventio [...] 020 | | | interventio | | Long-Term | | | | | n | [...] | linked to | interventio | | Long-Term | | 020 | | scheduled/d | [...] | | | | n | | Long-Term | | | | | scheduled/d | [...] | | Active | | | | Long-Term | | 020 | | | interventio [...] HH SHARED | | | See Pain assess | | Description: | PAIN | Comple [...] + +--------+--------+ + | Instruct | Problem: SN | | | Instructed patient and | | medications | Medication | Comple | | caregiver on medication | | Description: RN to | Management | yoel | | administration, | | reconcile and | | | | purpose, dosages, | | instruct PT/CG | | | | preparation, scheduling, | | regarding medication | | | | side effects, food/drug | | effects, side | | | | interactions, and | | effect, dose, route | | | | potential complications. | | and when to notify | | | | Current regimen and | | MD/RN and leave | | | | compliance reviewed with | | medication list in | | | | patient and | | patient's home. | | | | caregiver.The patient | | Instruct and /or | | | | and/or caregiver | | assist pt with | | | | verbalized understanding | | setting up | | | | of add medication(s) as | | medication in | | | | instructed: Yes | | mediset. Assess | | | [...] | | | | Management | Failure/CHFGoal: | Comple | | | | Description: | Heart Failure | yoel | | | | Instruct the patient | | | | | | and/or caregiver in | | | | | | strategies to | | | | | | manage CHF. | | | | | + + +--------+--------+ + | Assess/monitor | Problem: | | | See Resp assesss | | respiratory status | Oxygenation/Respirat | [...] care | Problem: Wound | | | Wound cleansed with | | Description: Wound | Management | Comple | | wound cleanser and foam | | type: Pressure sore | | yoel | | optifoam applied. | | Wound location: | | | [...]
--- OUTSIDE RECORDS SUMMARY | ~2020-03-14 | XMS | Encounter Summary ---
Demographics + + + | Address | [address] | | | [place] [address] | + + + | Home Phone | | + + + | Preferred Language | Unknown | + + + | Marital Status | | + + + | Christianity Affiliation | Unknown | + + + | Race | Unknown | + + + | Ethnic Group | Unknown | + + + Author + + + | Author | [facility] | | | and [place] | + + + | Organization | [facility] | | | [...] Team Providers + +------+ + | Care Animal Biologist Name | Role | Phone | + [...] | +--------+ + + + + | 06/23/ | Home Care | [facility] [place] | Sam Quintanilla, | TELEPHONE ENCOUNTER | | 2019 | Visit | [place] [address] | [facility] [address] | | | | | [place] | | | | | [address] | [address] | | | | | [phone] | | | +--------+ + + + [...] | | | | | [place] [address] | | | | | | [phone] | | | | | | | | +--------+ + + + + | 04/13/ | Office | Cardiology | Julieta Michaelr | | | 2019 | Visit | | MD Marcelino [address] | | | | | | [address] | | | | | | [place] [address] | | | | | | [phone] | | | | | | | [...]
--- OUTSIDE RECORDS SUMMARY | ~2020-03-14 | XMS | Encounter Summary ---
Demographics + + + | Address | [address] | | | [place] [address] | + + + | Home Phone [...] Team Providers + +------+ + | Care Learning And Development Coordinator Name | Role | Phone | [...] + + | Closed | Specialty | Podiatry | Diagnoses | | Weaver, | | | Services | | | Yana-Rossy | ASHUTOSH Lorenzo | | | Required | | Onychomycosi | i, | [address] | | | | | s | Candido | [address] | | | | | | , [address] | [place] | | | | | | [address] | [address] | | | | | | [place], | Phone: | | | | | | [place] | [phone] | | | | | | [address] | Fax: | | | | | | Phone: | [phone] | | | | | | [phone] | | | | | | | Fax: | | | | | | | [phone] | | +--------+ + + + + + Evaluate & Treat (Routine) [...] | r emphysema | [place]Gillian | [facility] | | | | | (HCC) | MD [address] | [place] | | | | | | [address] | [address] Phone: | | | | | | [place], | [phone] | | | | | | [place] | Fax: | | | | | | [address] | [phone] | | | | | | Phone: | | | | | | | [phone] | | | | | | | Fax: | | | | | | | [phone] | | + + + + + + + Evaluate & Treat (Routine) +--------+ + + + + + | Status | Reason | Specialty | Diagnoses / | Referred By | Referred To | | | | | Procedures | Contact | Contact | +--------+ + + + + + | Closed | Specialty | Occupational | Diagnoses | | [facility] | | | Services | Therapy / | Generalized | Yana-Tajt | [place] | | | Required | Rehabilitatio | | i, | Therapy [address] | | | | n | osteoarthrit | [place]Gillian | [address] | | | | | is | , MD [address] | [place], | | | | | Procedures | [address] | [place] [address] | | | | | PT | [place], | Phone: | | | | | | [place] | [phone] | | | | | | [address] | Fax: | | | | | | Phone: | [phone] | | | | | | [phone] | | | | | | | Fax: | | | | | | | [phone] | | +--------+ + + + + + Evaluate & Treat (Routine) + + + + + + + | Status | Reason | Specialty | Diagnoses / | Referred By | Referred To | | | | | Procedures | Contact | Contact | + + + + + + + | Authorized | Specialty | Cardiology | Diagnoses | | [facility] | | | Services | | S/p TAVR | Yana-Tajt | Cardiology | | | Required | | (transcathet | i, | [address] | | | | | er aortic | Candido | Almo, | | | | | valve | , MD [address] | [place] | | | | | replacement) | [address] | [address] | | | | | , | [place], | Phone: | | | | | bioprostheti | [place] | [phone] | | | | | c Acute on | [address] | Fax: | | | | | chronic | Phone: | [phone] | | | | | systolic | [phone] | | | | | | heart | Fax: | | | | | | failure | [phone] | | | | | | (HCC) | | | | | | | 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 | | | + + + + + + + Evaluate & Treat (Routine) [...] | | | | , [address] | [place] [address] | | | | | | [address] | Phone: | | | | | | [place], | [phone] | | | | | | [place] | Fax: | | | | | | [address] | [phone] | | | | | | Phone: | | | | | | | [phone] | | | | | | | Fax: | | | | | | | [phone] | | + + + + + + + Reason for Visit + + + | Reason | Comments | + + + | Lab Results | | + + + | Other | Pain managment appointment has been scheduled | + + + | ER Follow-up | pneumonia / URI, pt states she has been spitting up benitez phlegm | + + + Encounter Details +--------+---------+ + + + | Date | Type | Department | Care Team | Description | +--------+---------+ + + + | 07/15/ | Office | [facility] | Nikolay, | Generalized | | 2019 | Visit | MEDICINE [address] | MD Candido | osteoarthritis | | | | [address] | [address] [facility] | (Primary Dx); [place] | | | | [place] [address] | [place] [address] | term prescription | | | | [phone] | [phone] | opiate use; S/p TAVR | | | | | | (transcatheter | | | | | | aortic valve | | | | | | replacement), | | | | | | bioprosthetic; Acute | | | | | | on chronic systolic | | | | | | heart failure | | | | | | (HCC); Impaired | | | | | | mobility; Detrusor | | | | | | dysfunction; | | | | | | Centrilobular | | | | | | emphysema (HCC); | | | | | | Onychomycosis | +--------+---------+ + + + Social History [...] + + + | Blood Pressure | 90/42 | 07/15/2019 11:06 AM | | | | | PDT | | + + + + + | Pulse | 90 | 07/15/2019 11:06 AM | | | | | PDT | | + + + + + | Temperature | 36.5 C (97.7 F) | 07/15/2019 11:06 AM | | | | | PDT | | + + + + + | Respiratory Rate | 16 | 07/15/2019 11:06 AM | | | | | PDT | | + + + + + | Oxygen Saturation | 95% | 07/15/2019 11:06 AM | | | | | PDT | | + + + + + | Inhaled Oxygen | - | - | | | Concentration | | | | + + + + + | Weight | 53.8 kg (118 lb 9.7 | 07/15/2019 11:06 AM | | | | oz) | PDT | | + + + + + | Height | - | - | | + + + + + | Body Mass Index | 19.74 | 06/28/2019 8:00 PM | | | | | PDT | | + + + + + documented in this encounter Patient Instructions Patient Instructions Candido Link MD - 07/15/2019 11:15 AM PDTIncrease lasi x (furosemide) to 2 tab per day for next 3 days, then return to current dose. documented in this encounter Progress Notes Candido Link MD - 07/15/2019 11:15 AM PDTFormatting of this note might be d ifferent from the original. CHIEF COMPLAINT Chief Complaint Patient presents with Lab Results Other Pain managment appointment has been scheduled ER Follow-up pneumonia / URI, pt states she has been spitting up benitez phlegm HPI Mahi Laureano is a 88 y.o. y/o female who presents today for several issues: She is very frail, has multiple comorbidities as below, and over the last month she has bee n in the ER 3 times, once after a fall which was mechanical fall when her walker got stuck i n the door, another time she had an upper respiratory infection and yesterday she was also s een and was deemed to be fluid overloaded as her proBNP was elevated and she was told to inc rease the dose of Lasix. Chest x-ray in the emergency room yesterday shows some blunting of costophrenic angles but no obvious infiltrates. She has also history of chronic pain related to generalized osteoarthritis, taking hydrocod one 4 times a day, we have refer her to a pain clinic in the [facility] where she resid es and she has an appointment towards the end of this month but previous months prescription is coming to an and and she would like a refill. She denies any side effects and her son heidi brown is her caregiver, confirms that. He is in charge of monitoring her medications. She also needs referrals to several specialists in the area and to resume care with them fo r her multiple issues. No chest pain or palpitations today. She is on chronic oxygen. No fever or chills. ASSESSMENT & PLAN 1. Generalized osteoarthritis - HYDROcodone-acetaminophen (NORCO) 7.5-325 mg per tablet; Take 1 tablet by mouth 4 times d aily as needed for Pain. Dispense: 120 tablet; Refill: 0 2. correction prescription opiate use -We will follow-up with pain clinic in [place] as above. 3. S/p TAVR (transcatheter aortic valve replacement), bioprosthetic - * [facility] Card[facility] - AMB Referral; Future 4. Acute on chronic systolic heart failure (HCC) - * [facility] [place] [facility] - AMB Referral; Future 5. Impaired mobility 6. Detrusor dysfunction - * [facility] [place] [facility] - AMB Referral; Future 7. Centrilobular emphysema (HCC) - * [facility] [place] [facility] - AMB Referral 8. Onychomycosis - [facility] Podiatry - AMB Referral REVIEW OF SYSTEMS Review of Systems Constitutional: Positive for fatigue. HENT: Negative. Respiratory: Positive for shortness of breath. Negative for cough. Cardiovascular: Negative for leg swelling. Gastrointestinal: Negative. Genitourinary: Negative. Musculoskeletal: Negative. Skin: Negative. Neurological: Negative. Psychiatric/Behavioral: Negative. PHYSICAL EXAM VITAL SIGNS: BP 90/42 | Pulse 90 | Temp 36.5 C (97.7 F) (Temporal) | Resp 16 | Wt 5 3.8 kg (118 lb 9.7 oz) | SpO2 95% | ? No | BMI 19.74 kg/m Constitutional: Elderly, thin, very frail, No acute distress, Pleasant female. HENT: Normocephalic, Atraumatic, Bilateral external ears normal, Oropharynx with no erythma , No oral exudates, Nose normal. Cardiovascular: Regular rate & rhythm, No murmurs, No rubs, No gallops. No lower extremitie s edema. Thorax & Lungs: Normal chest, No respiratory distress, bibasilar crackles which actually ar e chronic, wheezing, or rubs. Skin: Warm, No erythema, No rash. Musculoskeletal: Good range of motion in all major joints. No tenderness to palpation or ma yohannes deformities noted. Neurologic: Alert & oriented x 3, Normal motor function, Normal sensory function, No focal deficits noted. Psychiatric: Affect normal, Judgment normal, Mood normal. Results for MAHI LAUREANO ( ) as of 07/15/2019 12:59 Ref. Range 07/14/2019 10:00 07/14/2019 13:57 WBC Latest Ref Range: 4.0 - 11.0 K/uL 8.2 RBC COUNT Latest Ref Range: 3.70 - 5.20 M/uL 3.21 (L) Hemoglobin Latest Ref Range: 11.5 - 16.0 g/dL 9.3 (L) Hematocrit Latest Ref Range: 34.0 - 47.0 % 30.5 (L) MCV Latest Ref Range: 83.0 - 101.0 fL 95.0 MCH Latest Ref Range: 28.0 - 35.0 pg 29.0 MCHC Latest Ref Range: 32.0 - 36.0 g/dL 30.5 (L) RDW-CV Latest Ref Range: <15.0 % 14.6 RDW-SD Latest Ref Range: 35.1 - 46.3 fL 51.4 (H) Platelet Count Latest Ref Range: 140 - 440 K/uL 140 MPV Latest Ref Range: 6.5 - 12.4 fL 10.4 Immature Platelet Fraction Latest Ref Range: 0.9 - 11.2 % 2.1 % nRBC Latest Ref Range: 0 - 2 per 100 WBCs 0 Absolute nRBC Latest Ref Range: 0.00 - 0.01 K/uL 0.00 Absolute Neutrophils Latest Ref Range: 1.80 - 8.50 K/uL 5.99 Absolute Lymphocytes Latest Ref Range: 0.60 - 3.20 K/uL 0.98 Absolute Monocytes Latest Ref Range: 0.00 - 1.00 K/uL 0.95 Absolute Eosinophils Latest Ref Range: 0.00 - 0.40 K/uL 0.21 Absolute Basophils Latest Ref Range: 0.00 - 0.10 K/uL 0.03 Absolute Immature Granulocytes Latest Ref Range: 0.00 - 0.03 K/uL 0.02 % Neutrophils Latest Ref Range: 45.0 - 82.0 % 73.2 % Lymphocytes Latest Ref Range: 20.0 - 45.0 % 12.0 (L) % Monocytes Latest Ref Range: 4.0 - 12.0 % 11.6 % Eosinophils Latest Ref Range: 0.0 - 5.0 % 2.6 % Basophils Latest Ref Range: 0.0 - 1.0 % 0.4 % Immature Granulocytes Latest Ref Range: 0.0 - 0.4 % 0.2 Na Latest Ref Range: 136 - 145 mmol/L 144 K Latest Ref Range: 3.4 - 5.1 mmol/L 3.7 Chloride Latest Ref Range: 98 - 107 mmol/L 106 Carbon dioxide Latest Ref Range: 20 - 31 mmol/L 32 (H) Anion Gap Latest Ref Range: 3 - 16 mmol/L 6 Glucose Latest Ref Range: 60 - 106 mg/dL 86 BUN Latest Ref Range: 9 - 23 mg/dL 17 Creatinine Latest Ref Range: 0.55 - 1.02 mg/dL 0.67 BUN/Creatinine Ratio Unknown 25.4 Albumin Latest Ref Range: 3.2 - 4.8 g/dL 3.2 Albumin/Globulin Ratio Latest Ref Range: 0.8 - 1.9 1.5 Total Protein Latest Ref Range: 5.7 - 8.2 g/dL 5.4 (L) EGFR IF NOT Latest Ref Range: >=60 mL/min/1.73m2 >60 Calcium Latest Ref Range: 8.7 - 10.4 mg/dL 8.7 ALK PHOS Latest Ref Range: 46 - 116 U/L 99 ALT (SGPT) (REF) Latest Ref Range: 10 - 49 U/L 11 AST (SGOT) (REF) Latest Ref Range: 0 - 34 U/L 15 Bilirubin Total (Calculated) Latest Ref Range: 0.3 - 1.2 mg/dL 0.5 Globulin Latest Ref Range: 2.1 - 3.8 g/dL 2.2 PROCALCITONIN Latest Ref Range: <=0.50 ng/mL <0.05 B-TYPE NATRIURETIC PEPTIDE Latest Ref Range: <100 pg/mL 438 (H) RESPIRATORY VIRUS ANTIGENS PROFILE Unknown Rpt Adenovirus Latest Ref Range: Not Detected Not Detected Parainfluenza 1 Latest Ref Range: Not Detected Not Detected Parainfluenza 3 Latest Ref Range: Not Detected Not Detected Rhinovirus/Enterovirus Latest Ref Range: Not Detected Not Detected Human Metapneumovirus Latest Ref Range: Not Detected Not Detected PAST MEDICAL HISTORY Past Medical History: Diagnosis Date Aortic stenosis COPD (chronic obstructive pulmonary disease) (HCC) Coronary artery disease FAMILY HISTORY Family History Problem Relation Age of Onset Hypertension Mother SOCIAL HISTORY Social History Socioeconomic History Marital status: Spouse name: Not on file Number of children: Not on file Years of education: Not on file Highest education level: Not on file Tobacco Use Smoking status: Former Smoker Types: Cigarettes Start date: 1944 Last attempt to quit: 1969 Years since quittin.8 Smokeless tobacco: Never Used Substance and Sexual Activity Alcohol use: Never Frequency: Never SURGICAL HISTORY Past Surgical History: Procedure Laterality Date 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 CHOLECYSTECTOMY COLONOSCOPY N/A 06/11/2019 Procedure: COLONOSCOPY-Possible Flex Sig; Surgeon: Edwin Stoddard MD; [facility] NIRMAL AND BSO TONSILLECTOMY AND ADENOIDECTOMY UPPER GASTROINTESTINAL ENDOSCOPY N/A 06/07/2019 Procedure: EGD; Surgeon: Edwin Stoddard MD; Location: [facility] CURRENT MEDICATIONS Current Outpatient Medications Medication Sig Dispense Refill albuterol (VENTOLIN HFA) 90 mcg/puff inhaler Inhale 2 puffs into the lungs every 4 hour s as needed for Wheezing. albuterol-ipratropium 2.5-0.5 mg/3 mL SOLN Take 3 mLs by nebulization every 4 hours as needed for Increased Work of Breathing. 360 mL 3 arformoterol (BROVANA) 15 MCG/2ML NEBU Take 2 mLs by nebulization 2 times daily. J44.90 180 mL 3 aspirin 81 mg chewable tablet Take 1 tablet by mouth Daily. 30 tablet 3 atorvaSTATin (LIPITOR) 20 mg tablet Take 20 mg by mouth every morning. brimonidine (ALPHAGAN) 0.2% ophthalmic solution Place 1 drop into both eyes 2 times millie ly. 12 budesonide (PULMICORT) 0.5 mg/2 mL nebulizer solution Take 2 mLs by nebulization 2 time s daily. Dx Code J44.90 180 mL 3 busPIRone (BUSPAR) 10 MG tablet Take 1 tablet by mouth Daily. 90 tablet 3 CALCIUM PO Take 1,000 mg by mouth Daily. carvedilol (COREG) 6.25 mg tablet Take 1 tablet by mouth 2 times daily (with breakfast & dinner). 180 tablet 1 cetirizine (ZYRTEC) 10 mg tablet Take 1 tablet by mouth Daily. 30 tablet 1 Cholecalciferol (VITAMIN D PO) Take 1 tablet by mouth every morning. dicyclomine (BENTYL) 10 mg capsule Take 1 capsule by mouth Daily as needed. docusate sodium (COLACE) 250 MG capsule Take 250 mg by mouth Daily as needed for Consti pation. dorzolamide (TRUSOPT) 2% ophthalmic solution Place 1 drop into both eyes 2 times daily. 12 famotidine (PEPCID) 40 MG tablet Take 1 [...] 4 times daily as needed for Pain. 120 tablet 0 latanoprost (XALATAN) 0.005% ophthalmic solution Place 1 drop into both eyes every morn ing. 12 loperamide (IMODIUM A-D) 2 MG tablet Take 2 mg by mouth Twice daily as needed for Diar sinan. metoprolol succinate (TOPROL-XL) 25 mg 24 hr tablet Take 1 tablet by mouth nightly. 90 tablet 1 Multiple Vitamin (MULTIVITAMIN) tablet Take 1 tablet by mouth Daily. Multiple Vitamins-Minerals (PRESERVISION AREDS 2 PO) Take 1 tablet by mouth Daily. nitroglycerin (NITROSTAT) 0.[address] 0.4 mg under the tongue every 5 minute s as needed for Chest pain. oxygen Inhale 3 L into the lungs continuous. ALETHEA: 99 months. 1 Container 2 pantoprazole (PROTONIX) 40 mg tablet Take 1 tablet by mouth every morning (before break fast). 90 tablet 1 Polyethylene Glycol 3350 POWD Take 17 g by mouth Daily as needed for Constipation. polyvinyl alcohol (LIQUITEARS) 1.4% ophthalmic solution Place 1 drop into both eyes as needed. predniSONE (DELTASONE) 10 mg tablet Take 1 tablet by mouth Daily. 90 tablet 1 senna (SENNA) 8.6 mg tablet Take 1 tablet by mouth every morning. 180 tablet 1 tamsulosin (FLOMAX) 0.4 mg CAPS Take 1 capsule by mouth nightly. 90 capsule 1 tiotropium (SPIRIVA) 18 mcg inhalation capsule Inhale 1 capsule into the lungs Daily. 9 0 capsule 3 UNABLE TO FIND Nebulizer Machine with accessories ALETHEA: 99 months. 1 each 0 No current facility-administered medications for this visit. ALLERGIES Allergies Allergen Reactions Percocet [Oxycodone] Unknown Pregabalin Unknown Lyrica Sulfa Antibiotics Unknown FOLLOW-UP Return in about 2 months (around 09/14/2019) for Routine follow up. Notes: 1. Parts of this documentwere created using [employer] speech recognition software. As a resu lt, there may be unintended word spelling errors. Every attempt was made to correct the di ctation. [email or web address] montoya in this encounter Plan of Treatment +--------+ + + + + | Date | Type | Specialty | Care Team | Description | +--------+ + + + + | 03/23/ | Office | Anticoagulation | García Harris, | | | 2019 | Visit | | [place] | | | | | | [place] | | | | | | [address] | | | | | | | | +--------+ + + + + | 04/11/ | Appointment | Radiology | Shawn Michael | | 2019 | | | MD Marcelino [address] | | | | | | [address] | | | | | | [place] [address] | | | | | | [phone] | | | | | | | | +--------+ + + + + | 04/13/ | Office | Cardiology | Shawn Michael | | | 2019 | Visit | | MD Marcelino [address] | | | | | | [address] | | | | | | [place] [address] | | | | | | [phone] | | | | | | | | +--------+ + + + + + + +--------+ + + | Name | Type | Priori | Associated Diagnoses | Order Schedule | | | | ty | | | + + +--------+ + + | * [facility] | Outpatient | Routin | Detrusor | Expected: | | - AMB Referral | Referral | e | dysfunction | 07/15/2019, Expires: | | | | | | 07/15/2020 | + + +--------+ + + | * [facility] | Outpatient | Routin | S/p TAVR | Expected: | | Cardiology - AMB | Referral | e | (transcatheter | 07/15/2019, Expires: | | Referral | | | aortic valve | 07/15/2020 | | | | | replacement), | | | | | | bioprosthetic Acute | | | | | | on chronic systolic | | | | | | heart failure (HCC) | | + + +--------+ + + | * [facility] | Outpatient | Routin | Generalized | Ordered: 07/15/2019 | | Occupational Therapy | Referral | e | osteoarthritis | | | - AMB Referral | | | | | + + +--------+ + + | * [facility] | Outpatient | Routin | Centrilobular | Ordered: 07/15/2019 | | Pulmonary - AMB | Referral | e | emphysema (HCC) | | | Referral | | | | | + + +--------+ + + | [facility] | Outpatient | Routin | Onychomycosis | Ordered: 07/15/2019 | | Clinic Podiatry - | Referral | e | | | | AMB Referral | | | | | + + +--------+ + + documented as of this encounter Visit Diagnoses + + | Diagnosis | + + | Generalized osteoarthritis - Primary Generalized osteoarthrosis, unspecified site | + + | correction prescription opiate use | + + | S/p TAVR (transcatheter aortic valve replacement), bioprosthetic | + + | Acute on chronic systolic heart failure (HCC) Acute on chronic systolic heart failure | + + | Impaired mobility Other ill-defined conditions | + + | 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
--- OUTSIDE RECORDS SUMMARY | ~2020-03-14 | XMS | Encounter Summary ---
Demographics + + + | Address | [address] | | | [place] [address] | + + + | Home Phone [...] Team Providers + +------+ + | Care Alternative Dispute Resolution Mediator Name | Role | Phone | + +------+ + | Candido Link | PCP | | | MD | | | + +------+ + Reason for Visit +--------+ + | Reason | Comments | +--------+ + | DME | Nebulizer machine | +--------+ + Encounter Details +--------+ + + + + | Date | Type | Department | Care Team | Description | +--------+ + + + + | 07/05/ | Telephone | [facility] | Nikolay, | DME (Nebulizer | | 2019 | | MEDICINE [address] [place] [address] | MD Candido | machine) | | | | [facility] | [address] [place] [address] | | | | | [place] [address] | [place] [address] | | | | | [phone] | [phone] | | | | | | | [...] | | 2019 | Visit | | THREAD CHECKER [address] | | | | | | [place] | | | | | | [address] | | | | | | | | +--------+ + + + + | 04/11/ | Appointment | Radiology | Shawn Michael | | | 2019 | | | MD [address] | | | | | | [address] [place] | | | | | | [place] [address] | | | | | | [phone] | | | | | | | | +--------+ + + + + | 04/13/ | Office | Cardiology | Shawn Michael | | | 2019 | Visit | | MD [address] | | | | | | [address] [place] | | | | | | [place], [place] [address] | | | | | | [phone] | | | | | | | | +--------+ + + + + documented as of this encounter Visit Diagnoses + + | Diagnosis | + + | Centrilobular emphysema (HCC) [...]
--- OUTSIDE RECORDS SUMMARY | ~2020-03-14 | XMS | Encounter Summary ---
Demographics + + + | Address | [address] | | | [place] [address] | + + + | Home Phone [...] Team Providers + +------+ + | Care Splicer Apprentice Name | Role | Phone | [...] | | | | | | | ([facility]) Fall, | | | | | [...] + + | 02/25/ | Emergency | [facility] | Nguyễn Oden MD | Fall from ground | | 2019 | | [facility] | [address] | level (Primary Dx); | | | | CENTER [address] | [place] | Laceration of right | | | | [place] | [address] | side of back, | | | | [address] | | initial encounter | | | | [phone] | | | +--------+ + + + [...] be sent through Care Everywhere.Laceration: All Closures (Dominican)Fall, Mechanical (Dominican)documented in this encounter Medications at Time of [...] | | | | | | type ([facility]) | | | | | | [...] 0 | 02/24/20 | | | (MYCOSTATIN) [id number] | | | | 20 | | [...] | | 0 | | | | ([facility]) 0.65% nasal | Nare route. 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 [address] | | | | | | [place] | | | | | | [address] | | | | | | | | +--------+ + + + + | 04/11/ | Appointment | Radiology | Shawn Michael | | | 2019 | | | MD [address] | | | | | | [address] [place] | | | | | | [place] [address] | | | | | | [phone] | | | | | | | | +--------+ + + + + | 04/13/ | Office | Cardiology | Shawn Michael | | | 2019 | Visit | | MD [address] | | | | | | [address] [place] | | | | | | [place] [address] | | | | | | [phone] | | | | | | | [...] J?MRN: | | | | | | [id number] | | | [id number] | | | riteri | | | [...] | | | St. | | | [place] | | | y | | | [...] | | | s | | | [place] | | | ED | | | Dispar | | | ity | | | Measur | | | e - | | | [place] | | | has | | | [...] | | | s. | | | [place] | | | | | | Health [...] | | | By: | | | [place] | | | | | | Health [...] | | 18 0 | | | [facility] | | | | | | [facility] | | | l | | | Hospit | | | al 1 0 | | | [facility] | | [facility] | | | [place] | | | y | | | [...] | | | St. | | | [place] | | | y H. | | [...] | | | St. | | | [place] | | | y H. | | [...] | | e of | | | [place] | | | | | | pal[place] [...] | | | Pneumo | | | rticia, | | | unspec | | | [...] | | e of | | | [place] | | | | | | palencia [...] | | e of | | | [place] | | | | | | palencia [...] | | | 2019 | | | [place] | | | | | | Genera [...] | | | M.D. | | | Corrosion Engineer | | | al | | | [...] | | | otify/ | | | [id number] | | | [email or web address] | | | [id number] | | | [phone] | | | [id number] | | | [id number] | | | | | | PLEASE [...] | A preliminary report was sent by [facility] with no significant | | | discrepancy [...] | A preliminary report was sent by [facility] with no significant discrepancy | | on [...]
--- OUTSIDE RECORDS SUMMARY | ~2020-03-14 | XMS | Encounter Summary ---
Demographics + + + | Address | [address] | | | [place] [address] | + + + | Home Phone [...] Team Providers + +------+ + | Care Low Pressure Kettle Operator Name | Role | Phone | [...] Description | +--------+--------+ + + + | 11/12/ | Refill | [facility] | Nikolay, | Medication Refill | | 2020 | | MEDICINE [address] | MD Candido | | | | | [facility] | [address] [place] [address] | | | | | [place] [address] | [place] [address] | | | | | [phone] | [phone] | | | | | | | [...] | | 2019 | Visit | | [facility] [address] | | | | | | [place] | | | | | | [address] | | | | | | | | +--------+ + + + + | 04/11/ | Appointment | Radiology | Shawn Michael | | | 2019 | | | MD [address] | | | | | | [address] [place] | | | | | | [place] [address] | | | | | | [phone] | | | | | | | | +--------+ + + + + | 04/13/ | Office | Cardiology | Shawn Michael | | | 2019 | Visit | | MD [address] | | | | | | [address] [place] | | | | | | [place], [place] [address] | | | | | | [phone] | | | | | | | | +--------+ + + + + documented as of this encounter Visit Diagnoses + + | Diagnosis | + + | ANASTASIA (generalized anxiety disorder) Generalized anxiety disorder | + + documented in this encounter Additional Health Concerns + + + + | Infection | Noted Time | Resolved Time | + + + + | Methicillin-resistant Staphylococcus aureus | 06/08/2019 9:39 AM | | | | PDT | | + + + + documented as of this encounter"
--- OUTSIDE RECORDS SUMMARY | ~2020-03-14 | XMS | Encounter Summary ---
Demographics + + + | Address | [address] | | | [place] [address] | + + + | Home Phone | | + + + | Preferred Language | Unknown | + + + | Marital Status | | + + + | Episcopalian Affiliation | Unknown | + + + | Race | Unknown | + + + | Ethnic Group | Unknown | + + + Author + + + | Author | [facility] | | | and [place] | + + + | Organization | [facility] | | | [...] Team Providers + +------+ + | Care Well Drill Operator Rotary Drill Name | Role | Phone | + [...] Description | +--------+---------+ + + + | 06/11/ | Surgery | [facility] | Edwin Stoddard MD | COLONOSCOPY-Possible | | 2019 | | MED CTR MP INTRA OP | [address], [place] | Flex Sig | | | | [address] | [address] [place], [place] | | | | | [place], [place] | [address] | | | | | [address] | | | | | | [phone] | | | +--------+---------+ + + + [...] might be different fro m the original. [place] HOSPITALIST DISCHARGE SUMMARY Pt. 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 Fell GLASS WASHER AND CARRIER Was trying to sit on walker but [...] walk on Heart Disease CAD TAVR in [place] February 16, 2019 bioprosthetic complicated by moderate [...] er as he spoke to her Prior Tube Cleaning Operator [place] area, discussed with son in room with patien t if clot and not anticoag risk of worsening of clot CVA [place] etc... 5th Dr Pineda reviewed and says would stop Anticoag and I spoke with Dr Velazquez (Ting) and h e says stop Anticoag that these pressures not unexpected and I told patient this and her son and Dr Cochran office in [place] contacted for their opionion. Did stop Coumadin which is not therapeutic yet anyhow 6th I called Dr Teddy Cochran office and his office has Echo via [employer] but he was to call m e and did not. I called Dr Ayoub office and his office provided his pager, no reply yet to p aging him. Addendum (06/11/2019 18:44) Dr Ayoub not answer page so I paged again and am calling office number (now closed but hope to connect to boring mill operator for metal) Addendum (06/11/2019 19:00) Did reach Anna [phone] and she confirmed Mega pager number says now debone processing supervisor is Dr Buck and that Doc will be paged and if not reply in 20 minutes call back and the will use [employer]. I provided by [employer] for call back. Addendum (06/11/2019 19:43) I [...] latter to get back to me Also GLASS WASHER AND CARRIER her Lasix was 20 mg daily not [...] chronic hypoxic respir failure on [place] O2 GLASS WASHER [employer] CARRIER 6th she says 2-3 liters at home. Today is 97% on 4 liters. Heme positive stool Hx of EGD for Schtazkis ring EGD Jun 07 Dr Stoddard mild ring dilated, gastroparesis, gastritis PRBC once on Jun 02 4th son says had Colonoscopy due to bleeding 11 months ago and was clean, says her HGB personal injury law specialist nically prior to TAVR was around 10. 6th Colonoscopy (limited had poor prep) did see the area of concern and has severe divertic ulosis no bleeding no visible cancer and NOT need biopsy, did advance to the descending colo n. 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 Please see progress note and GL[employer]ER [employer] CAR[employer]ER medication list f or any discrepancies. PLEASE NOTE: ~ GLASS WASHER [employer] CARRIER carvedilol dose 6.25 mg BID (double what was ordered on admit); ~ Hydralazine therapy complete GLASS WASHER [employer] CARRIER; ~ docusate, fluticasone are PRN not scheduled GLASS W[employer]ER [employer] CARRIER; ~ added several meds ([place], eye drops, Brovana/Pulmicort nebs, tamsulosin); ~ pt [...] at the cardiac study Center in [facility]. Procedure was complicated with moderate perivalvu [...] regurgitation pre sent. MD Dr Teddy [facility] [address] [phone] (Son has said Dr Cochran and Dr Ayoub in same office but the number below boring mill operator for metal did not kn ow of Dr Teddy Cochran) Dr Asha Ayoub [place] office [phone] press 5 and his pager is [phone] Dr Marcus Maguire [phone] (dot meyaddendum tdnorefesh nownorefresh) (dot meyvent) (dot [...] 23 per GENNARO Ceja was out on No notes on [...] 11:am with Dr. Millan . Contact information: [address] [place] [phone] Condition: Patient being discharged with condition improved Greater than 30 minutes were spent on discharge and coordination of post-hospital care. (myla morton) Electronically signed by: Bruce Cochran MD, 06/12/2019 14:06 [facility] Reference. This is NOT part of [...] this chart may have been created with CloudArena voice recognition software. Occasi onal wrong-word or [...] sent through Care Everywhere.Diverticulitis, Discharge Instructions for (Uruguayan)Congestive Heart Failure (CHF), Left-Sided (Uruguayan)doc umented in this encounter Medications at Time of Discharge + + + +---------+ + + | Medication | Sig | Dispensed | Refills | Start | End Date | | | | | | Date | | + + + +---------+ + + | brimonidine | Place 1 drop into | | 12 | / | | | (ALPHAGAN) 0.2% | both [...] 1 drop into | | 12 | // | | | (XALATAN) 0.005% | both [...] puffs into | | 0 | | 02/27/202 | | (VENTOLIN HFA) 90 | the [...] might be different fro m the original. [place] HOSPITAL[place] PROGRESS NOTE Patient: Ángela Crowley : 1930: Age: 88 y.o. MedRec: [id number] PCP: Kathleen Escobar MD Admission date: 05/31/2019 [...] and they said got the US by [employer] today and would have him call me after meeting. No call though by 450 pm and the number below no after hours service . Patient's son had told me prior that Dr Teddy Cochran was the person to contact but today victorina murray said that Dr Ayoub to call. I called office (via [employer]) and his office gave me pager zoiesundar prajapati I just paged at 450 pm. I called [facility] and Tube Cleaning Operator there says have Cardiac MRI but not [...] ent and son. Home to here from [place]. 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 Fell GLASS WASHER AND CARRIER Was trying to sit on walker but [...] walk on Heart Disease CAD TAVR in [place] February 16, 2019 bioprosthetic complicated by moderate [...] er as he spoke to her Prior Tube Cleaning Operator [place] area, discussed with son in room with rosalie bray if clot and not anticoag risk of worsening of clot CVA [place] etc... 5th Dr Pineda reviewed and says would stop Anticoag and I spoke with Dr Velazquez (Ting) and trevor says stop Anticoag that these pressures not unexpected and I told patient this and her son and Dr Cochran office in [place] contacted for their opionion. Did stop Coumadin which is not therapeutic yet anyhow 6th I called Dr Teddy Cochran office and his office has Echo via [employer] but he was to call e and did not. I called Dr Ayoub office and his office provided his pager, no reply yet to p aging him. Addendum (06/11/2019 18:44) Dr Ayoub not answer page so I paged again and am calling office number (now closed but hope to connect to boring mill operator for metal) Addendum (06/11/2019 19:00) Did reach Anna [phone] and she confirmed Mega pager number says now debone processing supervisor is Dr Buck and that Doc will be paged and if not reply in 20 minutes call back and the will use cell. I provided by [employer] for call back. Addendum (06/11/2019 19:43) I [...] latter to get back to me Also GLASS WASHER AND CARRIER her Lasix was 20 mg daily not [...] chronic hypoxic respir failure on [place] O2 GLASS WASHER AND CARRIER 6th she says 2-3 liters at home. Today is 97% on 4 liters. Heme positive stool Hx of EGD for Schtazkis ring EGD Jun 07 Dr Stoddard mild ring dilated, gastroparesis, gastritis PRBC once on Jun 02 son says had Colonoscopy due to bleeding 11 months ago and was clean, says her HGB personal injury law specialist nically prior to TAVR was around 10. 6th Colonoscopy (limited had poor prep) did see the area of concern and has severe divertic ulosis no bleeding no visible cancer and NOT need biopsy, did advance to the descending colo n. 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 Please see progress note and GLASS W[employer]ER [employer] CARRIER medication list f or any discrepancies. PLEASE NOTE: ~ GLASS WASHER AND CARRIER carvedilol dose 6.25 mg BID (double what was ordered on admit); ~ Hydralazine therapy complete GLASS WASHER AND CARRIER; ~ docusate, fluticasone are PRN not scheduled GLASS W[employer]ER [employer] CARRIER; ~ added several meds ([place], eye drops, Brovana/Pulmicort nebs, tamsulosin); ~ pt [...] at the cardiac study Center in [facility]. Procedure was complicated with moderate perivalvu [...] regurgitation pre sent. MD Dr Teddy [facility] [place] [address] [phone] (Son has said Dr Cochran and Dr Ayoub in same office but the number below boring mill operator for metal did not kn ow of Dr Teddy Cochran) Dr Asha Ayoub [place] office [phone] press 5 and his pager is [phone] Dr Marcus Maguire [phone] (dot meyaddendum tdnorefesh nownorefresh) (dot meyvent) (dot [...] appt Jun 16 and Jun 23 per [facility] Brenna was out on (dot meyaddendum tdnorefesh nownorefresh) (dot meytime meycritical meysign) Bruce Cochran MD 06/12/2019 13:17 [facility] Objective Data Serial weights: Filed Weights: 05/31/19 [...] 650 mg 650 mg Oral Q4H PRN Kyeur Carvajal MD 650 mg a t 06/04/19 [...] drop 1 drop Both Eyes BID Keyur wlalace MD 1 drop at 06/12/19 0908 budesonide (PULMICORT) nebulizer solution 0.5 mg 0.5 mg Nebulization RT BID Keyur wallace MD 0.5 mg at 06/12/19 0900 busPIRone (BUSPAR) tablet 10 mg 10 mg Oral Nightly Keyur Carvajal MD 10 mg at 2099 carvedilol (COREG) tablet 6.25 mg 6.25 mg [...] Bruce Cochran MD 10 mg at 04/23 docusate sodium (COLACE) capsule 100 mg 100 [...] consult - other medications/reasons Other Pharmacy Consult David Wu piperacillin-tazobactam (ZOSYN) 3.375 g in sodium [...] for input(s): IRON, TIBC, PCTSAT, FERRITIN, TSH, FZTTPSCO59, FOLATE in the last 168 hours. Inflammatory markers Recent Labs Lab 06/07/1942606/06/19 1914 06/06/19 0807 06/06/19 0413 PROCALCITONI 8.62* 11.37* 17.89* 18.79* ESR -- -- -- 4 Chemistry Recent Labs Lab 06/12/1962106/11/1963206/10/19 0516 06/07/19 0427 06/06/19 0413 GLU 78 79 82 < [...] ABG No results for input(s): PHART, PO2ART, FOI2CHW, VGV1FJH, BEART, G7UDKKTC in the last 168 h ours. No results for input(s): SPECSOURCE, PHPOCB, PCO2, PO2, HCO3, TCO2, BEART, UREY1ZNI in the last 168 hours. Drug of [...] Component Value Units Date/Time Helicobactor pylori Biopsy [[id number]] (Normal) Collected: 06/07/19 0824 Order Status: Completed Lab Status: Final result Updated: 06/09/19 0915 Specimen: Tissue from Stomach, Antrum Helicobacter pylori Ag Negative Culture, Blood [[id number]] Collected: 06/06/19 0849 Order Status: Completed Lab Status: Final result Updated: 06/11/19 0851 Specimen: Peripheral Blood Culture No growth after 5 days incubation. Culture, Blood [[id number]] Collected: 06/06/19 0807 Order Status: Completed Lab [...] this chart may have been created with Cloud[employer]rena voice recognition software. Occasi onal wrong-word or sound-alike substitutions may have occurred due to the inherent owen itations of voice recognition software. Please read the chart carefully and recognize, using context, where these substitutions have occurred eyerBruce MD - 06/11/2019 4:50 PM PDT [place] HOSPITAL[place] PROGRESS NOTE Patient: Ángela Crowley : 1930: Age: 88 y.o. MedRec: [id number] PCP: Kathleen Escobar MD Admission date: 05/31/2019 [...] and they said got the US by [employer] today and would have him call me after meeting. No call though by 450 pm and the number below no after hours service . Patient's son had told me prior that Dr Teddy Cochran was the person to contact but today victorina murray said that Dr Ayoub to call. I called office (via [employer]) and his office gave me pager zoiesundar prajapati I just paged at 450 pm. I called [facility] and Tube Cleaning Operator there says have Cardiac MRI but not [...] ent and son. Home to here from [place]. 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 Fell GLASS WASHER AND CARRIER Was trying to sit on walker but [...] walk on Heart Disease CAD TAVR in [place] February 16, 2019 bioprosthetic complicated by moderate [...] er as he spoke to her Prior Tube Cleaning Operator [place] area, discussed with son in room with rosalie bray if clot and not anticoag risk of worsening of clot CVA [place] etc... 5th Dr Pineda reviewed and says would stop Anticoag and I spoke with Dr Velazquez ([facility]) and victorina murray says stop Anticoag that these pressures not unexpected and I told patient this and her son and Dr Cochran office in [place] contacted for their opionion. Did stop Coumadin which is not therapeutic yet anyhow 6th I called Dr Teddy Cochran office and his office has Echo via [employer] but he was to call david murray and did not. I called Dr Ayoub [...] latter to get back to me Also GLASS WASHER AND CARRIER her Lasix was 20 mg daily not [...] chronic hypoxic respir failure on [place] O2 GLASS WASHER AND CARRIER 6th she says 2-3 liters at home. Today is 97% on 4 liters. Heme positive stool Hx of EGD for Schtazkis ring EGD Jun 07 Dr Stoddard mild ring dilated, gastroparesis, gastritis PRBC once on Jun 02 4th son says had Colonoscopy due to bleeding 11 months ago and was clean, says her HGB personal injury law specialist nically prior to TAVR was around 10. 6th Colonoscopy (limited had poor prep) did see the area of concern and has severe divertic ulosis no bleeding no visible cancer and NOT need biopsy, did advance to the descending colo n. 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 Please see progress note and GLASS WASHER [employer] CARRIER medication list f or any discrepancies. PLEASE NOTE: ~ GLASS WASHER AND CARRIER carvedilol dose 6.25 mg BID (double what was ordered on admit); ~ Hydralazine therapy complete GLASS WASHER AND CARRIER; ~ docusate, fluticasone are PRN not scheduled GLASS WASHER AND CARRIER; ~ added several meds ([place], eye drops, Brovana/Pulmicort nebs, tamsulosin); ~ pt [...] at the cardiac study Center in [facility]. Procedure was complicated with moderate perivalvu [...] regurgitation pre sent. MD Dr Teddy [facility] [address] [phone] (Son has said Dr Cochran and Dr Ayoub in same office but the number below boring mill operator for metal did not kn ow of Dr Teddy Cochran) Dr Asha Ayoub [place] office [phone] press 5 and his pager is [phone] Dr Marcus Maguire [phone] (dot meyaddendum tdnorefesh nownorefresh) (dot meyvent) (dot malnutattest is attestation for malnutrition) Plan Dr Teddy Cochran not call me back Dr Ayoub paged CXR Still on Zosyn Miralax Carb controlled diet Addendum (06/11/2019 18:44) Dr Ayoub not answer page so I paged again and am calling office number (now closed but hope to connect to boring mill operator for metal) Addendum (06/11/2019 19:00) Did reach [place] [phone] and she confirmed Mega pager number says now debone processing supervisor is Dr Buck and that Doc will be paged and if not reply in 20 minutes call back and the will use [employer]. I provided by [employer] for call back. Addendum (06/11/2019 19:43) I [...] 18:53) RN walked these over Son provided [phone] and I called twice and does not allow me to reach anyone Son provided [phone] Time spent with the patient (of which more than 50% was in counseling and/or coordination t he patient's care as outlined above) in minutes exceeded 50 minutes. Well now more than an hour, well more. Start following BNP HgBA1c with Jun 12 labs CM said prior that Dr Millan will be PCP Has appt Jun 16 and Jun 23 per [facility] Brenna was out on (dot meyaddendum tdnorefesh nownorefresh) (dot meytime meycritical meysign) Bruce Cochran MD 06/11/2019 16:50 [facility] Objective Data Serial weights: Filed Weights: 05/31/19 [...] Subcutaneous 4x Daily and Keyur Carvajal MD 2 Units at 06/11/19 [...] consult - other medications/reasons Other Pharmacy Consult David Wu piperacillin-tazobactam (ZOSYN) 3.375 g in sodium [...] 06/08/19 0447 06/07/19 0427 06/06/19 0413 WBC 12.2* 8.1 6.8 7.2 7.3 9.0 HGB 9.4* 8.7* 8.4* 8.4* 8.7* 8.7* HCT 30.3* 28.0* 27.3* 27.2* 28.3* 28.5* PLT 157 144 120* 121* 124* 132* NEUPCT -- -- -- 85.5* 80.0 86.9* Recent Labs Lab 09/0663206/10/19 1039 06/08/19 0447 PROTIME 13.2 13.6 14.4* INR 1.0 1.1 1.1 No results for input(s): IRON, TIBC, PCTSAT, FERRITIN, TSH, PETCAFAO19, FOLATE in the last 168 hours. Inflammatory markers Recent Labs Lab 06/07/197 06/06/19 1914 06/06/19 0807 06/06/19 0413 PROCALCITONI 8.62* 11.37* 17.89* 18.79* ESR -- -- -- 4 Chemistry Recent Labs Lab 06/11/1963206/10/19 0516 06/09/19 0424 06/07/1942606/06/19 041 GLU 79 82 88 97 113* NA [...] ABG No results for input(s): PHART, PO2ART, AIV6FAB, FDB7HZG, BEART, Z6PBVNJM in the last 168 h ours. No results for input(s): SPECSOURCE, PHPOCB, PCO2, PO2, HCO3, TCO2, BEART, ZMFZ4NTU in the last 168 hours. Drug of [...] care glucose Recent Labs Lab 06/11/19 1209 06/10/19 2015 06/10/19 1646 06/10/19 1217 06/10/19 0640 06/09/19 2144 POCGLU 157* 137* 213* 181* 85 118* Micro results more choices using dot micro (below is last 7 days) Microbiology Results (Last 7) Date with Culture/Sensitivity) Procedure Component Value Units Date/Time Helicobactor pylori Biopsy [[id number]] (Normal) Collected: 06/07/19 0824 Order Status: Completed Lab Status: Final result Updated: 06/09/19 0915 Specimen: Tissue from Stomach, Antrum Helicobacter pylori Ag Negative Culture, Blood [[id number]] Collected: 06/06/19 0849 Order Status: Completed Lab Status: Final result Updated: 06/11/19 0851 Specimen: Peripheral Blood Culture No growth after 5 days incubation. Culture, Blood [[id number]] Collected: 06/06/19 0807 Order Status: Completed Lab [...] this chart may have been created with CloudArena voice recognition software. Occasi onal wrong-word or sound-alike substitutions may have occurred due to the inherent owen itations of voice recognition software. Please read the chart carefully and recognize, using context, where these substitutions have occurred eyer, Bruce Coe MD - 06/10/2019 12:42 PM PDT [place] HOSPITAL[place] PROGRESS NOTE Patient: Ángela Crowley : 1930: Age: 88 y.o. 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 Fell GLASS WASHER AND CARRIER Was trying to sit on walker but [...] walk on Heart Disease CAD TAVR in [place] February 16, 2019 bioprosthetic complicated by moderate [...] er as he spoke to her Prior Tube Cleaning Operator [place] area, discussed with son in room with patien t if clot and not anticoag risk of worsening of clot CVA [place] etc... 5th Dr Pineda reviewed and says would stop Anticoag and I spoke with Dr Velazquez (Ting) and victorina murray says stop Anticoag that these pressures not unexpected and I told patient this and her son and Dr Cochran office in [place] contacted for their opionion. Did stop Coumadin [...] latter to get back to me Also GLASS WASHER AND CARRIER her Lasix was 20 mg daily not [...] chronic hypoxic respir failure on [place] O2 GLASS WASHER AND CARRIER Heme positive stool Hx of EGD for Schtazkis ring EGD Jun 07 Dr Stoddard mild ring dilated, gastroparesis, gastritis PRBC once on Jun 02 4th son says had Colonoscopy due to bleeding 11 months ago and was clean, says her HGB personal injury law specialist nically prior to TAVR was around 10. 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 Please see progress note and GLASS [employer]ER [employer] CARRIER medication list f or any discrepancies. PLEASE NOTE: ~ GLASS WASHER AND CARRIER carvedilol dose 6.25 mg BID (double what was ordered on admit); ~ Hydralazine therapy complete GLASS WASHER AND CARRIER; ~ docusate, fluticasone are PRN not scheduled GLASS W[employer]ER AND CARRIER; ~ added several meds ([place], eye drops, Brovana/Pulmicort nebs, tamsulosin); ~ pt [...] at the cardiac study Center in [facility]. Procedure was complicated with moderate perivalvu [...] regurgitation pre sent. MD Dr Teddy [facility] [place] [address] [facility] [phone] Dr Asha Velazquez [phone] (dot meyaddendum tdnorefesh nownorefresh) (dot meyvent) (dot malnutattest is attestation for malnutrition) Plan Spoke with Dr Edwin Stoddard Patient, office of Dr Espinal saurav and Son and of course patient [...] meycritical meysign) Bruce Cochran MD 06/10/2019 12:42 [facility] Objective Data Serial weights: Filed Weights: 05/31/19 [...] Keyur wallace MD 0.5 mg at 06/09/19 2121 busPIRone (BUSPAR) tablet 10 mg 10 mg [...] Carvajal MD 200 mg a t 06/10/19 08 dorzolamide (TRUSOPT) 2% ophthalmic solution 1 drop [...] Lab 06/10/19 0516 06/09/19 0424 06/08/19 0447 09/0242606/06/19412 WBC 8.1 6.8 7.2 7.3 9.0 HGB 8.7* 8.4* 8.4* 8.7* 8.7* HCT 28.0* 27.3* 27.2* 28.3* 28.5* PLT 144 120* 121* 124* 132* NEUPCT -- -- 85.5* 80.0 86.9* Recent Labs Lab 06/10/19 1039 06/08/19446 PROTIME 13.6 14.4* INR 1.1 1.1 No results for input(s): IRON, TIBC, PCTSAT, FERRITIN, TSH, [id number], FOLATE in the last 168 hours. Inflammatory markers Recent Labs Lab 06/07/1942606/06/19 1914 06/06/1980606/06/19412 PROCALCITONI 8.62* 11.37* 17.89* 18.79* ESR -- -- -- 4 Chemistry Recent Labs Lab 06/10/19 0516 06/09/1942306/07/1942606/06/1941206/04/19 1154 GLU 82 88 97 113* < [...] this interval not displayed. Recent Labs Lab 09/02/19 0427 MG 1.9 No results for input(s): [...] ABG No results for input(s): PHART, PO2ART, GOS2ZRG, ZDK0GEW, BEART, N2EYGTFT in the last 168 h ours. No results for input(s): SPECSOURCE, PHPOCB, PCO2, PO2, HCO3, TCO2, BEART, [id number] in the last 168 hours. Drug of [...] Component Value Units Date/Time Helicobactor pylori Biopsy [[id number]] (Normal) Collected: 06/07/19 0824 Order Status: Completed Lab Status: Final result Updated: 06/09/1915 Specimen: Tissue from Stomach, Antrum Helicobacter pylori Ag Negative Culture, Blood [[id number]] Collected: 06/06/19 0849 Order Status: Completed Lab Status: Preliminary result Updated: 06/09/19 0851 Specimen: Peripheral Blood Culture No growth: Monitored continually by instrument for 5 days Culture, Blood [[id number]] Collected: 06/06/19 0807 Order Status: Completed Lab Status: Preliminary result Updated: 06/09/19 0811 Specimen: Blood from Line Culture No growth: Monitored continually by instrument for 5 days Culture, MRSA [[id number]] Collected: 06/04/19 1329 Order Status: Completed Lab Status: Final result Updated: 06/05/19 0730 Specimen: Tissue from Nares Culture 3+ Staphylococcus aureus,Methicillin resistant (MRSA) Comment: *INFECTION PREVENTION ALERT - MRSA* CONTACT PRECAUTIONS REQUIRED. Culture, Blood [[id number]] Collected: 06/04/19 1154 Order Status: Completed Lab Status: Final result Updated: 06/09/19 1211 Specimen: Peripheral Blood Culture No growth after 5 days incubation. Culture, Blood [[id number]] Collected: 06/04/19 1154 Order Status: Completed Lab [...] (such as CHF or CP or Pneumonia) 23rd Patient is improved today with resolution of symptoms 24th Worse with recurrence of symptoms requiring further testing Portions of this chart may have been created with CloudArena voice recognition software. Occasi onal wrong-word or sound-alike substitutions may have occurred due to the inherent owen itations of voice recognition software. Please read the chart carefully and recognize, using context, where these substitutions have occurred eyer, Bruce Coe MD - 06/09/2019 8:31 PM PDT [facility] HOSPITALIST PROGRESS NOTE Patient: Ángela Crowley : 1930: Age: 88 y.o. MedRec: [id number] PCP: Kathleen Escobar MD Admission date: 05/31/2019 [...] disorder Hypertension Moderate protein-calorie malnutrition Cerebral atherosclerosis senior living (current) use of anticoagulants - clopidogrel (PLAVIX) COPD (chronic obstructive pulmonary disease) Pulmonary hypertension, mild Anemia 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 Fell [employer]ASS W[employer]ER [employer] CARRIER Was trying to sit on walker but was not locked and fell back and had foot pain 4th xray on May 31 showed possible non displaced fracture involving the base of the 2nd p roximal phalanx extending to the MTP joint LEFT. ER Doc at admit aware as was admitter. 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 Please see progress note and [employer] medication list f or any discrepancies. PLEASE NOTE: ~ GLASS [employer] CARRIER carvedilol dose 6.25 mg BID (double what was ordered on admit); ~ Hydralazine therapy complete [employer]ASS [employer]ER [employer] CARRIER; ~ docusate, fluticasone are PRN not scheduled [employer] CAR[employer]ER; ~ added several meds ([place], eye drops, Brovana/Pulmicort nebs, tamsulosin); ~ pt [...] at the cardiac study Center in [facility]. Procedure was complicated with moderate perivalvu [...] regurgitation pre sent. MD Dr Teddy [facility] [place] [address] and [facility] [phone] Dr Asha Velazquez [phone] (dot meyaddendum tdnorefesh nownorefresh) (dot meyvent) (dot nathen is attestation for malnutrition) Plan Wants Home O2 from local DME and would need Dr Pineda to get back to me regarding imaging of TAVR (CT vs MR) likely cannot do here Discussed consideration for transfer if can justify for further workup Son and Patient say NO to SNF CM says Dr Millan will be PCP Ceja was out on From Prior Dr Jarrell [...] meycritical meysign) Bruce Cochran MD 06/09/2019 20:31 [facility] Objective Data Serial weights: Filed Weights: 05/31/19 [...] Nightly Keyur Carvajal MD 20 mg at 215 brimonidine (ALPHAGAN) 0.2% ophthalmic solution 1 drop 1 drop Both Eyes BID Keyur wallace MD 1 drop at 06/09/19 09 budesonide (PULMICORT) nebulizer solution 0.5 mg 0.5 mg Nebulization RT BID Keyur wallace MD 0.5 mg at 06/09/19 0751 busPIRone (BUSPAR) tablet 10 mg 10 mg Oral Nightly Keyur Carvajal MD 10 mg at 215 carvedilol (COREG) tablet 6.25 mg 6.25 mg [...] tablet 20 mg 20 mg Oral Daily David uW hydrALAZINE (APRESOLINE) tablet 10 mg 10 mg [...] for input(s): IRON, TIBC, PCTSAT, FERRITIN, TSH, [id number], FOLATE in the last 168 hours. Inflammatory markers Recent Labs Lab 06/07/1942606/06/19 1914 06/06/19 0807 06/06/19412 PROCALCITONI 8.62* 11.37* 17.89* 18.79* ESR -- [...] ABG No results for input(s): PHART, PO2ART, ZZO5VVU, EIH3ZNF, BEART, B1ZMNANE in the last 168 h ours. No results for input(s): SPECSOURCE, PHPOCB, PCO2, PO2, HCO3, TCO2, BEART, [id number] in the last 168 hours. Drug of [...] Component Value Units Date/Time Helicobactor pylori Biopsy [[id number]] (Normal) Collected: 06/07/19 0824 Order Status: Completed Lab Status: Final result Updated: 06/09/19 0915 Specimen: Tissue from Stomach, Antrum Helicobacter pylori Ag Negative Culture, Blood [[id number]] Collected: 06/06/19 0849 Order Status: Completed Lab Status: Preliminary result Updated: 06/09/19 0851 Specimen: Peripheral Blood Culture No growth: Monitored continually by instrument for 5 days Culture, Blood [[id number]] Collected: 06/06/19 0807 Order Status: Completed Lab Status: Preliminary result Updated: 06/09/19 0811 Specimen: Blood from Line Culture No growth: Monitored continually by instrument for 5 days Culture, MRSA [[id number]] Collected: 06/04/19 1329 Order Status: Completed Lab Status: Final result Updated: 06/05/19 0730 Specimen: Tissue from Nares Culture 3+ Staphylococcus aureus,Methicillin resistant (MRSA) Comment: *INFECTION PREVENTION ALERT - MRSA* CONTACT PRECAUTIONS REQUIRED. Culture, Blood [[id number]] Collected: 06/04/19 1154 Order Status: Completed Lab Status: Final result Updated: 06/09/19 1211 Specimen: Peripheral Blood Culture No growth after 5 days incubation. Culture, Blood [[id number]] Collected: 06/04/19 1154 Order Status: Completed Lab [...] this chart may have been created with CloudArena voice recognition software. Occasi onal wrong-word or sound-alike substitutions may have occurred due to the inherent owen itations of voice recognition software. Please read the chart carefully and recognize, using context, where these substitutions have occurred YAMeyerBruce MD - 06/08/2019 4:45 PM PDT [facility] [place] HOSPITALIST PROGRESS NOTE Patient: Ángela Crowley : 1930: Age: 88 y.o. MedRec: [id number] PCP: Kathleen Escobar MD Admission date: 05/31/2019 Hospital day # : 8 Physician author: Bruce Cochran MD Today: 06/08/2019 Subjective CC Admit May 31 after falling Chronic SOB Says Dr Carvajal told her she can go home on Friday Wants ceja out say was on Flomax [employer]ASS [employer] CARRIER to help void [employer]ASS W[employer]ER [employer] CARRIER ROS See above Objective Exam General Alert [...] disorder Hypertension Moderate protein-calorie malnutrition Cerebral atherosclerosis senior living (current) use of anticoagulants - clopidogrel (PLAVIX) COPD (chronic obstructive pulmonary disease) Pulmonary hypertension, mild Anemia 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 Please see progress note and [employer] CAR[employer]ER medication list f or any discrepancies. PLEASE NOTE: ~ GLASS [employer] CARRIER carvedilol dose 6.25 mg BID (double what was ordered on admit); ~ Hydralazine therapy complete GLASS [employer] CARRIER; ~ docusate, fluticasone are PRN not scheduled GLASS [employer] CAR[employer]ER; ~ added several meds ([place], eye drops, Brovana/Pulmicort nebs, tamsulosin); ~ pt [...] shoulders) (dot meyaddendum tdnorefesh nownorefresh) (dot meyvent) (myla sena is attestation for malnutrition) Plan Wants O2 [...] meycritical meysign) Bruce Cochran MD 06/08/2019 16:45 [facility] Objective Data Serial weights: Filed Weights: 05/31/19 [...] Nightly Keyur Carvajal MD 10 mg at 223 carvedilol (COREG) tablet 6.25 mg 6.25 mg [...] 1229 Hematology and anemia Recent Labs Lab 06/08/19 0447 06/07/197 06/06/19 0413 WBC 7.2 7.3 9.0 HGB 8.4* 8.7* 8.7* HCT 27.2* 28.3* 28.5* PLT 121* 124* 132* NEUPCT 85.5* 80.0 86.9* Recent Labs Lab 06/08/19446 PROTIME 14.4* INR 1.1 No results for input(s): IRON, TIBC, PCTSAT, FERRITIN, TSH, [id number], FOLATE in the last 168 hours. Inflammatory markers Recent Labs Lab 06/07/19 0427 06/06/19 1914 06/06/19 0807 06/06/19 0413 06/02/19 191 PROCALCITONI 8.62* [...] ABG No results for input(s): PHART, PO2ART, RKJ9FMN, DNH5XJA, BEART, S2NKXMGI in the last 168 h ours. No results for input(s): SPECSOURCE, PHPOCB, PCO2, PO2, HCO3, TCO2, BEART, [id number] in the last 168 hours. Drug of [...] Component Value Units Date/Time Helicobactor pylori Biopsy [[id number]] Collected: 06/07/19 0824 Order Status: Sent Lab Status: In process Updated: 06/07/19 0845 Specimen: Tissue from Stomach, Antrum Culture, Blood [[id number]] Collected: 06/06/19 0849 Order Status: Completed Lab Status: Preliminary result Updated: 06/06/192050 Specimen: Peripheral Blood Culture No growth: Monitored continually by instrument for 5 days Culture, Blood [[id number]] Collected: 06/06/19 0807 Order Status: Completed Lab Status: Preliminary result Updated: 06/06/192010 Specimen: Blood from Line Culture No growth: Monitored continually by instrument for 5 days Culture, MRSA [[id number]] Collected: 06/04/19 1329 Order Status: Completed Lab Status: Final result Updated: 06/05/19 0730 Specimen: Tissue from Nares Culture 3+ Staphylococcus aureus,Methicillin resistant (MRSA) Comment: *INFECTION PREVENTION ALERT - MRSA* CONTACT PRECAUTIONS REQUIRED. Culture, Blood [[id number]] Collected: 06/04/19 1154 Order Status: Completed Lab Status: Preliminary result Updated: 06/07/19 1211 Specimen: Peripheral Blood Culture No growth: Monitored continually by instrument for 5 days Culture, Blood [[id number]] Collected: 06/04/19 1154 Order Status: Completed Lab Status: Preliminary result Updated: 06/07/19 121 Specimen: Peripheral Blood Culture No growth: Monitored continually by instrument for 5 days Culture, Blood [[id number]] Collected: 06/02/19 1915 Order Status: Completed Lab Status: Final result Updated: 06/07/191920 Specimen: Peripheral Blood Culture No growth after 5 days incubation. Culture, Blood [[id number]] Collected: 06/02/191914 Order Status: Completed Lab Status: [...] this chart may have been created with CloudArena voice recognition software. Occasi onal wrong-word or sound-alike substitutions may have occurred due to the inherent owen itations of voice recognition software. Please read the chart carefully and recognize, using context, where these substitutions have occurred arker, Keyur Mruray MD - 06/07/2019 5:24 PM PDT [facility] Hospitalist Progress Note Ángela Crowley [...] a.m. stopping the hydrocortisone. 2. 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 Patient had TAVR in 02/04 and would have had coronary angiography prior to procedure. We are continue to work on obtaining any results of coronary arteriography.She was referred for her TAVR from [facility] in [place] and medical records is working to try [...] that her hematocr it of the 8.5 / likely represents some blood loss but not excessive. EGD did not show a bl eeding source. .I am going to initiate Coumadin at 2 mg daily and will follow Hemoccults.She will need [employer] at the time of discharge to have protTravador shooting for an INR no greater than 2 dillan mims. 5. Mild CHF Patient's BNP on admission [...] as outlined above. Keyur Carvajal 06/07/2019 17:24 [facility] Portions of this chart may have been created with CloudArena voice recognition software. Occasi onal wrong-word or sound-alike substitutions may have occurred due to the inherent owen itations of voice recognition software. Please read the chart carefully and recognize, using context, where these substitutions have occurred arri, Edwin Murray MD - 0 06/07/2019 8:06 AM PDTPatient [...] Edwin Stoddard MD at 06/07/2019 8:09 AM PDTParker, Keyur Murray MD - 10/2018 7:45 PM PDT [facility] Hospitalist Progress Note Ángela Crowley [...] have shown clinical improvement. 2. 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 Sh e chronically has pain but believes it slightly [...] as outlined above. Keyur Carvajal 06/06/2019 19:45 [facility] Portions of this chart may have been created with CloudArena voice recognition software. Occasi onal wrong-word or sound-alike substitutions may have occurred due to the inherent owen itations of voice recognition software. Please read the chart carefully and recognize, using context, where these substitutions have occurred arKeyur wallace MD - 0 06/05/2019 7:53 PM PDT [facility] Hospitalist Progress Note Ángela Crowley [...] mg every 8 hours. 2. Type 2 IL versus NSTEMI Patient's troponin has trended to [...] as outlined above. Keyur Carvajal 06/06/2019 19:53 [facility] Portions of this chart may have been created with CloudArena voice recognition software. Occasi onal wrong-word or [...] medication list or bottles ? MAR from [facility] facility: ? Doctor's office: ? Pharmacy list names: [facility] ? [place] State Prescription Monitoring Program ? [place] State Prescription Monitoring Program ? [employer] insurance reported information ? Care Everywhere ? Outside Information ? Other sources: Verbal interview with son, Yadiel, who manages patient's medications Vaccines up to date? Yes No Unsure Influenza x Pneumococcal x Tdap x Shingles x Noted medications discrepancies or medication-related issues: Dosage/Form/Frequency change: [employer]ER Medication: Prior to Admission Sig: Correct Dosage/Form: [...] mL by nebulization twice daily Per son, rip and groove machine operator instructed him to mix with Budesonide marcelino Budesonide 0.5 mg/2 mL neb marcelino 2 mL by nebulization twice daily Per son, rip and groove machine operator instructed him to mix with Arformoterol [...] Prior to Admission Sig: Patient taking differently GLASS W[employer]ER [employer] CARRIER as: Alprazolam 0.25 mg tab 1 tab [...] 1 tab by mouth daily Son states rim fire 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 Best possible [employer] CARRIER medication list after pharmacy review: PT REPORTED TAKING NOT TAKING Medication Sig Last Dose Dispense DocCedric Arciniega albuterol (VENTOLIN HFA) 90 mcg/puff inhaler Inhale 2 puffs into the lungs every 4 hours a s needed for Wheezing. Taking Alfredo Arciniega MD albuterol-ipratropium 2.5-0.5 mg/3 mL SOLN Take 3 mLs by nebulization every 4 hours as nee ded for Increased Work of Breathing. Not Taking Alfredo Arciniega MD ALPRAZolam (XANAX) 0.25 mg tablet Take 0.25 mg by mouth nightly as needed for Anxiety. Not Taking Historical MD Demian arformoterol (BROVANA) 15 MCG/2ML NEBU Take 15 [...] 1,000 mg by mouth Daily. Taking Historical MD Demian carvedilol (COREG) 6.25 mg tablet Take 6.25 mg by mouth 2 times daily (with breakfast & di nner). Taking Alfredo Arciniega MD cetirizine (ZYRTEC) 10 mg tablet Take 10 mg by mouth Daily. Taking Historical David Arciniega Cholecalciferol (VITAMIN D PO) Take 1 tablet [...] by mouth 2 times daily. Taking Differently Adr ANGELO Johnson HYDROcodone-acetaminophen (NORCO) 7.5-325 mg per tablet Take 1 tablet by mouth 4 times millie ly as needed for Pain. Taking Tammy Gardiner, latanoprost (XALATAN) 0.005% ophthalmic solution Place 1 [...] 1 tablet by mouth Daily. Taking Alfredo cox MD nitroglycerin (NITROSTAT) 0.4 mg SL [...] tablet by mouth every morning. Taking Historical Provi MD melani tamsulosin (FLOMAX) 0.4 mg CAPS Take 0.4 mg by mouth nightly. Taking Douglas Kumar MD tiotropium (SPIRIVA) 18 mcg inhalation capsule Inhale 18 mcg into the lungs Daily. Taking Historical MD Demian Medication review performed and electronically signed by Ly Guido, Experimental Worker 11:34 Reviewed by Autumn Sutherland, PharmD 06/05/2019 [...] MD - 06/04/2019 11:2 9 AM PDT [facility] Hospitalist Progress Note Ángela Crowley [...] improves with this . 2. Type 2 IL versus NSTEMI Patient's troponin has trended to [...] as outlined above. Keyur Carvajal 06/04/2019 11:29 [facility] Portions of this chart may have been created with CloudArena voice recognition software. Occasi onal wrong-word or [...] Cardiovascular Palp/Percussion: PMI in 5th ICS at [facility]; no lifts, thrills, palp S3 or S4. 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 Potential bioprosthetic aortic valve thrombosis A. Post TAVR with 23 mm Edward Sapian S3 valve on 02/16/2019 by Asha Ayoub MD at the cardiac study Center in [facility]. Procedure was complicated with modera te [...] is i n a class I of [place] [employer] functional class. There is no fluid retention on physical examination. 2. Coronary artery disease A. Left heart cath in [facility] on 02/16/2019 suggest noncritical CAD. However, r eport is not available. B. Troponin earlier was elevated at 0.13, however, patient has no chest pain no evidence of heart failure. C. She is treated appropriately with combination of aspirin, statin and beta-barbara. 3. Essential hypertension A. Blood pressure this morning is well controlled. 4. Anemia with GI bleeding A. She was admitted to [facility] on 05/31/2019 because of falls and feeling [...] edited this note. Kerri Sethi CMA 06/04/2019 I, Clint Jovel MD, personally performed the services described in this documentation, as scribed in my presence and it is both accurate and complete. Clint Jovel MD [facility] 06/04/2019 8:10 Portions of this chart may have been created with CloudArena voice recognition software. Occasi onal wrong-word or sound-alike substitutions may have occurred due to the inherent owen itations of voice recognition software. Please read the chart carefully and recognize, using context, where these substitutions have occurred. Keyur Sharma MD - 06/03/2019 9:28 PM PDT [facility] Hospitalist Progress Note Ángela Crowley is a 88 y.o. female ASSESSMENT and PLAN: 1. 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 Patient had TAVR in 02/04 and would have had coronary angiography prior to procedure. [facility] queried today and has no record of this. She was referred from [facility](Dr Cochran) and will contact the [...] as outlined above. Keyur Carvajal 06/03/2019 21:30 [facility] Portions of this chart may have been created with CloudArena voice recognition software. Occasi onal wrong-word or sound-alike substitutions may have occurred due to the inherent owen itations of voice recognition software. Please read the chart carefully and recognize, using context, where these substitutions have occurred arker, Keyur Murray MD - 0 06/02/2019 6:23 PM PDT [facility] Hospitalist Progress Note Ángela Crowley is a 88 y.o. female ASSESSMENT and PLAN: 1. 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 Coronary angiography was requested from [facility] but this compon ent was not received. She does not know of a history of stenting in the past. Diuretic incr eased transiently because of transfusion. I am going obtain 2 sets of blood cultures marco antonio murray of the abnormality of blood flow [...] as outlined above. Keyur Carvajal 06/02/2019 18:23 [facility] Portions of this chart may have been created with [employer] voice recognition software. Occasi onal wrong-word or sound-alike substitutions may have occurred due to the inherent owen itations of voice recognition software. Please read the chart carefully and recognize, using context, where these substitutions have occurred arker, Keyur Murray MD - 0 06/01/2019 6:47 PM PDT [facility]G Hospitalist Progress Note Ángela Crowley is a 88 y.o. female ASSESSMENT and PLAN: 1. 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. 2. Anemia. Patient has multiple etiologies. [...] as outlined above. Keyur Carvajal 06/02/2019 18:47 [facility] Portions of this chart may have been created with [employer] voice recognition software. Occasi onal wrong-word or [...] | | 2019 | Visit | | [facility] [address] | | | | | | [place] | | | | | | [address] | | | | | | | | +--------+ + + + + | 04/11/ | Appointment | Radiology | Shawn Michael | | | 2019 | | | MD Myn[address] | | | | | | [address] [place] | | | | | | [place] [address] | | | | | | [phone] | | | | | | | | +--------+ + + + + | 04/13/ | Office | Cardiology | Shawn Michael | | | 2019 | Visit | | MD Mynor [address] | | | | | | [address] [place] | | | | | | [place] [address] | | | | | | [phone] | | | | | | | [...] | + +--------+ + + + | SPRINKLER INSPECTOR REPORT - | | 02/16/2019 | | [...] [address] | [place] | [phone] | | [facility] | | [address] | | | - LABORATORY | | [...] + + | [facility] [facility] | [address] | [place] | [phone] | | [facility] | | [address] | | | - LABORATORY | | [...] | | A1c | | | [facility] | | | | | | MEDICAL | | | | | | CENTER - | | | | | | LABORATORY | | + +-------+ + + + | Estimated | 117 | mg/dL | [facility] | | | Average | | | [facility] | | | Glucose | | | [...] [address] | [place] | [phone] | | [facility] | | [address] | | | - LABORATORY | | [...] | [address] | [place], [place] | [phone] | | [facility] | | [address] | | | - LABORATORY | | [...] | | | | | mg/dL | [facility] | | | | | | MEDICAL | | | | | | CENTER - | | | | | | LABORATORY | | + + + + + + | eGFR if not | >60Comment: GLOMERULAR | >=60 | [facility] | | | | FILTRATION | mL/min/1.73m2 | [facility] | | | [place] | RATE,ESTIMATED | | MEDICAL | | | | mL/min/1.30z6Gwau than | | CENTER - | | [...] | | | | | mg/dL | [facility] | | | | | [...] [address] | [place] | [phone] | | [facility] | | [address] | | | - LABORATORY | | [...] + | [facility] | [address] | [place] | [phone] | | [facility] | | [address] | | | - LABORATORY | | [...] | [address] | [place] | [phone] | | [facility] | | [address] | | | - LABORATORY | | [...] [address] | [place] | [phone] | | [facility] | | [address] | | | - LABORATORY | | [...] [address] | [place] | [phone] | | [facility] | | [address] | | | - LABORATORY | | | | + + + + + COLONOSCOPY (06/11/2019 7:45 AM PDT) + + | Specimen | + + | | + + + + -+ | Narrative | Performed At | + + -+ | | [facility] | | GastroenterologyPatient Name: Ángela Montanoedarmando Date: 06/11/2019 | [facility] | | 7:45 AMMRN: [id number] #: [id number] of : | | | 1930Admit Type: InpatientAge: 88Room: Endo Room 1Gender: | | | FemaleNote Status: FinalizedAttending MD: Edwin Stoddard , | | | MDProcedure: ColonoscopyIndications: Abnormal CT | | | of the GI tractProviders: Edwin Stoddard MD, Lorena Morrell, | | | RN, Ailin Bui, Gem Technician, Yahir Moy | | | MD Sravan [...] the anesthesiologist and the | | | avionics systems technician in the endoscopy suite. Mental Status [...] AMScope Out: 8:12:08 AM | | | [facility], [address] [place] [address] | | | [address] | | | - Stricture in the [...] |Scope Out: 8:12:08 AM | | | [facility], [address] [place] [address] | | | [address] | | + + -+ + +---------+ + + | Performing | Address | City/State/[facility] Servicescode | Phone Number | | Organization | [...] + | [facility] | [address] | [place] | [phone] | | [facility] | | [address] | | | - LABORATORY | | [...] | | GLOMERULAR FILTRATION | mL/min/1.73m2 | [facility] | | | [place]IAN | RATE,ESTIMATED | | MEDICAL | | | | mL/min/1.91p4Cjxz than | | CENTER - | | [...] + | [facility] | [address] | [place] | [phone] | | [facility] | | [address] | | | - LABORATORY | | [...] [address] | [place] | [phone] | | [facility] | | [address] | | | - LABORATORY | | [...] [address] | [place] | [phone] | | [facility] | | [address] | | | - LABORATORY | | [...] + | [facility] | [address] | [place] | [phone] | | [facility] | | [address] | | | - LABORATORY | | [...] + | [facility] | [address] | [place] | [phone] | | [facility] | | [address] | | | - LABORATORY | | [...] | | Anticoagulation Range: | | [facility] | | | | 2.0 - 3.0High [...] [address] | [place] | [phone] | | [facility] | | [address] | | | - LABORATORY | | [...] [address] | [place] | [phone] | | [facility] | | [address] | | | - LABORATORY | | [...] | mL/min/1.73m2 | [facility] | | | [place] | RATE,ESTIMATED | | MEDICAL | | | | mL/min/1.47i9Zxni than | | CENTER - | | [...] [address] | [place] | [phone] | | [facility] | | [address] | | | - LABORATORY | | [...] [address] | [place] | [phone] | | [facility] | | [address] | | | - LABORATORY | | [...] [address] | [place] | [phone] | | [facility] | | [address] | | | - LABORATORY | | [...] [address] | [place] | [phone] | | [facility] | | [address] | | | - LABORATORY | | [...] [address] | [place] | [phone] | | [facility] | | [address] | | | - LABORATORY | | [...] [address] | [place] | [phone] | | [facility] | | [address] | | | - LABORATORY | | [...] | mL/min/1.73m2 | [facility] | | | [place] | RATE,ESTIMATED | | MEDICAL | | | | mL/min/1.38k2Iiuy than | | CENTER - | | [...] | | | | | mg/dL | . [facility] | | | | [...] [address] | [place] | [phone] | | [facility] | | [address] | | | - LABORATORY | | [...] [address] | [place] | [phone] | | [facility] | | [address] | | | - LABORATORY | | [...] + | [facility] | [address] | [place] | [phone] | | [facility] | | [address] | | | - LABORATORY | | [...] [address] | [place] | [phone] | | [facility] | | [address] | | | - LABORATORY | | [...] + | [facility] | [address] | [place] | [phone] | | [facility] | | [address] | | | - LABORATORY | | [...] [address] | [place] | [phone] | | [facility] | | [address] | | | - LABORATORY | | [...] [address] | [place] | [phone] | | [facility] | | [address] | | | - LABORATORY | | [...] | [address] | [place], [place] | [phone] | | [facility] | | [address] | | | - LABORATORY | | [...] [address] | [place] | [phone] | | [facility] | | [address] | | | - LABORATORY | | [...] + | [facility] | [address] | [place] | [phone] | | [facility] | | [address] | | | - LABORATORY | | [...] [address] | [place] | [phone] | | [facility] | | [address] | | | - LABORATORY | | [...] [address] | [place] | [phone] | | [facility] | | [address] | | | - LABORATORY | | [...] + | [facility] [facility] | [address] | [place] | [phone] | | [facility] | | [address] | | | - LABORATORY | | | | + + + + + POC Glucose (06/07/2019 8:19 AM PDT) + +-------+ + + + | Component | Value | Ref Range | Performed | Pathologist | | | | | At | Signature | + +-------+ + + + | Glucose, | 90 | 70 - 109 mg/dL | GTE [...] | [address] | [place], [place] | [phone] | | [facility] | | [address] | | | - LABORATORY | | | | + + + + + EGD (06/07/2019 7:41 AM PDT) + + | Specimen | + + | | + + + + -+ | Narrative | Performed At | + + -+ | | [facility] | | GastroenterologyPatient Name: Ángela Montanoedarmando Date: 06/07/2019 | [facility] | | 7:41 AMMRN: [id number] #: [id number] of : | | | 1930Admit Type: InpatientAge: 88Room: Endo Room 1Gender: | | | FemaleNote Status: FinalizedAttending MD: Edwin Stoddard , | | | MDProcedure: Upper GI endoscopyIndications: | | | Esophageal dysphagia, Occult blood in stoolProviders: | | | Edwin Stoddard MD, Ivett Alexandra RN, Marita | | | Stanley Phillip, Gem Technician, Hermilo Alcocer (Anesthesia | | | Staff)Medicines: [...] the anesthesiologist and the | | | avionics systems technician in the endoscopy suite. Mental Status [...] AMScope Out: 8:29:07 | | | AM [facility], [address] | | | [place] [address] | | | the duodenum, area of [...] |Scope Out: 8:29:07 AM | | | [facility], [address], [place], [place] | | | [address] | | + + -+ + +---------+ [...] + | [facility] | [address] | [place] | [phone] | | [facility] | | [address] | | | - LABORATORY | | [...] mL/min/1.73m2 | [facility] | | | [place] | RATE,ESTIMATED | | MEDICAL | | | | mL/min/1.07q6Txzz than | | CENTER - | | [...] [address] | [place] | [phone] | | [facility] | | [address] | | | - LABORATORY | | [...] [address] | [place] | [phone] | | [facility] | | [address] | | | - LABORATORY | | | | + + + + + CBC with Differential (06/07/2019 4:27 AM PDT) + + + + + + | Component | Value | Ref Range | Performed | Pathologist | | | | | At | Signature | + + + + + + | WBC | 7.3 | 4.0 - 11.0 K/uL | GTE [...] [address] | [place] | [phone] | | [facility] | | [address] | | | - LABORATORY | | [...] [address] | [place] | [phone] | | [facility] | | [address] | | | - LABORATORY | | [...] + + | [facility] [facility] | [address] | [place] | [phone] | | [facility] | | [address] | | | - LABORATORY | | | | + + + + + Procalcitonin (06/06/2019 7:14 PM PDT) + + + + + + | Component | Value | Ref Range | Performed | Pathologist | | | | | At | Signature | + + + + + + | Procalciton | 11.37 (HH)Comment: | <=0.50 ng/mL | [facility] | [...] [address] | [place] | [phone] | | [facility] | | [address] | | | - LABORATORY | | [...] + | [facility] [facility] | [address] | [place] | [phone] | | [facility] | | [address] | | | - LABORATORY | | [...] + | [facility] | [address] | [place] | [phone] | | [facility] | | [address] | | | - LABORATORY | | [...] [address] | [place] | [phone] | | [facility] | | [address] | | | - LABORATORY | | [...] | [employer] | | | [facility] | | [...] + | [facility] | [address] | [place] | [phone] | | [facility] | | [address] | | | - LABORATORY | | [...] | Consistent with previous | | [facility] | | | | results. | | [...] [address] | [place] | [phone] | | [facility] | | [address] | | | - LABORATORY | | [...] | | | | incubation. | | . [facility] | | | [...] + | [facility] | [address] | [place] | [phone] | | [facility] | | [address] | | | - LABORATORY | | [...] + | [facility] | [address] | [place] | [phone] | | [facility] | | [address] | | | - LABORATORY | | [...] | [address] | [place] | [phone] | | [facility] | | [address] | | | - LABORATORY | | [...] in | Critical Result called | | [facility] | | | | to and [...] + | [facility] | [address] | [place] | [phone] | | [facility] | | [address] | | | - LABORATORY | | [...] not | 59 (L)Comment: | >=60 | [facility] | | | | GLOMERULAR FILTRATION | mL/min/1.73m2 | [facility] | | | [place] | RATE,ESTIMATED | | MEDICAL | | | | mL/min/1.60x2Ntya than | | CENTER - | | [...] (L) | 3.2 - 4.8 g/dL | [facility] | | | | | [...] [address] | [place] | [phone] | | [facility] | | [address] | | | - LABORATORY | | [...] [address] | [place] | [phone] | | [facility] | | [address] | | | - LABORATORY | | [...] [address] | [place] | [phone] | | [facility] | | [address] | | | - LABORATORY | | [...] + | [facility] | [address] | [place] | [phone] | | [facility] | | [address] | | | - LABORATORY | | [...] [address] | [place] | [phone] | | [facility] | | [address] | | | - LABORATORY | | [...] [address] | [place] | [phone] | | [facility] | | [address] | | | - LABORATORY | | [...] [address] | [place] | [phone] | | [facility] | | [address] | | | - LABORATORY | | [...] + | [facility] | [address] | [place], [place] | [phone] | | [facility] | | [address] | | | - LABORATORY | | [...] mL/min/1.73m2 | [facility] | | | [place] | RATE,ESTIMATED | | MEDICAL | | | | mL/min/1.87p5Qhwr than | | CENTER - | | [...] | [address] | [place], [place] | [phone] | | [facility] | | [address] | | | - LABORATORY | | [...] 21 | 9 - 23 mg/dL | [facility] | | | | | | [facility] | | | | | | MEDICAL | | | | | | CENTER - | | | | | | LABORATORY | | + + + + + + | Creatinine | 0.60 | 0.55 - 1.02 | [facility] | | | | | mg/dL | [facility] | | | | | | MEDICAL | | | | | | CENTER - | | | | | | LABORATORY | | + + + + + + | eGFR if not | >60Comment: GLOMERULAR | >=60 | [facility] | | | | FILTRATION | mL/min/1.73m2 | [facility] | | | [place] | RATE,ESTIMATED | | MEDICAL | | | | mL/min/1.86o7Kwjz than | | CENTER - | | [...] [address] | [place] | [phone] | | [facility] | | [address] | | | - LABORATORY | | | | + + + + + POC Glucose (06/04/2019 9:04 PM PDT) + +-------+ + + + | Component | Value | Ref Range | Performed | Pathologist | | | | | At | Signature | + +-------+ + + + | Glucose, | 78 | 70 - 109 mg/dL | GTE [...] + | [facility] | [address] | [place] | [phone] | | [facility] | | [address] | | | - LABORATORY | | [...] + | [facility] | [address] | [place] | [phone] | | [facility] | | [address] | | | - LABORATORY | | [...] ampullary mucinous neoplasms. The largest | | vwbuagss63 mm.Catheter in the bladder. No visible balloon. [...] | | + +---------+ + + Culture, DONNA (06/04/2019 1:29 PM PDT) + + + [...] + | [facility] | [address] | [place] | [phone] | | [facility] | | [address] | | | - LABORATORY | | [...] - 1.030 | [facility] | | | [place], | | | [facility] | | [...] [address] | [place] | [phone] | | [facility] | | [address] | | | - LABORATORY | | | | + + + + + Evaristo, Manual (06/04/2019 11:54 AM PDT) + + [...] | | Segmented | | K/uL | [facility] | | | Neutrophils | | | [...] ST. | [address] | [place], [place] | [phone] | | [facility] | | [address] | | | - LABORATORY | | [...] | 0.91 | 0.55 - 1.02 | [facility] | | | | | mg/dL | [facility] | | | | | | MEDICAL | | | | | | CENTER - | | | | | | LABORATORY | | + + + + + + | eGFR if not | 58 (L)Comment: | >=60 | [facility] | | | | GLOMERULAR FILTRATION | mL/min/1.73m2 | [facility] | | | [place]IAN | RATE,ESTIMATED | | MEDICAL | | | | mL/min/1.79a1Vzss than | | CENTER - | | [...] [address] | [place] | [phone] | | [facility] | | [address] | | | - LABORATORY | | [...] (H) | 0.3 - 1.2 mg/dL | [facility] | | | Total | | | [facility] | | | | | | MEDICAL | | | | | | CENTER - | | | | | | LABORATORY | | + + + + + + | Total | 5.2 (L) | 5.7 - 8.2 g/dL | [facility] | | | Protein | | | [facility] | | [...] | [address] | [place], [place] | [phone] | | [facility] | | [address] | | | - LABORATORY | | [...] | | | | | M/uL | [facility] | | | | [...] [address] | [place] | [phone] | | [facility] | | [address] | | | - LABORATORY | | [...] [address] | [place] | [phone] | | [facility] | | [address] | | | - LABORATORY | | | | + + + + + Culture, Blood (06/04/2019 11:54 AM PDT) + + + + + + | Component | Value | Ref Range | Performed | Pathologist | | | | | At | Signature | + + + + + + | Culture | No growth after 5 days | | [facility] | | | | incubation. | | [...] | [address] | [place] | [phone] | | [facility] | | [address] | | | - LABORATORY | | [...] + | [facility] | [address] | [place] | [phone] | | [facility] | | [address] | | | - LABORATORY | | [...] + | [facility] [facility] | [address] | [place], [place] | [phone] | | [facility] | | [address] | | | - LABORATORY | | [...] [address] | [place] | [phone] | | [facility] | | [address] | | | - LABORATORY | | [...] mL/min/1.73m2 | [facility] | | | [place] | RATE,ESTIMATED | | MEDICAL | | | | mL/min/1.28b8Afpp than | | CENTER - | | [...] [address] | [place] | [phone] | | [facility] | | [address] | | | - LABORATORY | | [...] + | [facility] | [address] | [place] | [phone] | | [facility] | | [address] | | | - LABORATORY | | [...] [address] | [place] | [phone] | | [facility] | | [address] | | | - LABORATORY | | [...] | | | POC | | | [facility] | | | | | [...] | + + + + + | [facility] | [address] | [place] | [phone] | | [facility] | | [address] | | | - LABORATORY | | [...] | | | | WBCs | [facility] | | | | | | MEDICAL [...] + | [facility] | [address] | [place] | [phone] | | [facility] | | [address] | | | - LABORATORY | | [...] + | [facility] | [address] | [place] | [phone] | | [facility] | | [address] | | | - LABORATORY | | [...] [address] | [place] | [phone] | | [facility] | | [address] | | | - LABORATORY | | [...] 19 | 9 - 23 mg/dL | [facility] | | | | | | [facility] | | | | | | MEDICAL | | | | | | CENTER - | | | | | | LABORATORY | | + + + + + + | Creatinine | 0.78 | 0.55 - 1.02 | [facility] | | | | | mg/dL | [facility] | | | | | | MEDICAL | | | | | | CENTER - | | | | | | LABORATORY | | + + + + + + | eGFR if not | >60Comment: GLOMERULAR | >=60 | [facility] | | | | FILTRATION | mL/min/1.73m2 | [facility] | | | [place] | RATE,ESTIMATED | | MEDICAL | | | | mL/min/1.03n0Tlse than | | CENTER - | | [...] [address] | [place] | [phone] | | [facility] | | [address] | | | - LABORATORY | | [...] | | Blood in | | | [facility] | | | 1st | | [...] | [address] | [place], [place] | [phone] | | [facility] | | [address] | | | - LABORATORY | | [...] [address] | [place] | [phone] | | [facility] | | [address] | | | - LABORATORY | | [...] | | | | incubation. | | . [facility] | | | [...] [address] | [place] | [phone] | | [facility] | | [address] | | | - LABORATORY | | [...] [address] | [place] | [phone] | | [facility] | | [address] | | | - LABORATORY | | [...] + + | Performing | Address | City/State/[facility] | Phone Number | | Organization | | | | + + + + + | [facility] | [address] | [place] | [phone] | | [facility] | | [address] | | | - LABORATORY | | | | + + + + + C-Reactive Protein (06/02/2019 7:10 PM PDT) + + + + + + | Component | Value | Ref Range | Performed | Pathologist | | | | | At | Signature | + + + + + + | CRP | 26.80 (H) | <10.00 mg/L | [facility] | [...] + | [facility] | [address] | [place] | [phone] | | [facility] | | [address] | | | - LABORATORY | | | | + + + + + Sedimentation Rate (06/02/2019 7:10 PM PDT) + +-------+ + + + | Component | Value | Ref Range | Performed | Pathologist | | | | | At | Signature | + +-------+ + + + | Erythrocyte | 10 | <30 mm/hr | [facility] | | | | | | [facility]. [...] [address] | [place] | [phone] | | [facility] | | [address] | | | - LABORATORY | | [...] + + | [facility] | [address] | [place] | [phone] | | [facility] | | [address] | | | - LABORATORY | | [...] + | [facility] | [address] | [place] | [phone] | | [facility] | | [address] | | | - LABORATORY | | | | + + + + + POC Glucose (06/02/2019 6:24 AM PDT) + +-------+ + + + | Component | Value | Ref Range | Performed | Pathologist | | | | | At | Signature | + +-------+ + + + | Glucose, | 82 | 70 - 109 mg/dL | [facility] | | | POC | | | [...] [address] | [place] | [phone] | | [facility] | | [address] | | | - LABORATORY | | [...] + | [facility] | [address] | [place] | [phone] | | [facility] | | [address] | | | - LABORATORY | | [...] | [address] | [place] | [phone] | | [facility] | | [address] | | | - LABORATORY | | | | + + + + + Red Blood Cells (PRBC) - Crossmatch (06/02/2019 12:03 AM PDT) + + + + + + | Component | Value | Ref Range | Performed | Pathologist | | | | | At | Signature | + + + + + + | Product | [id number] | | [facility] | | | Code | | | [facility] | | | | | | [facility] | | | | | | C[facility] - | | | | | | BLOOD BANK | | + + + + + + | UNIT # | [id number] | | [facility] | | | | [...] + + + + | Blood | [id number] | | [facility] | | | Product | | | [facility] | | | Expiration | | | MEDICAL | | | Date and | | | CENTER - | | | Time | | | BLOOD BANK | | + + + + + + | Product | [id number] | | [facility] | | | Blood Type | | | [facility] | | | Barcode | | | [...] St | [place] | | | [facility] | | [address] | | | - BLOOD BANK | [...] + | [facility] | [address] | [place] | [phone] | | [facility] | | [address] | | | - LABORATORY | | [...] + + | [facility] | [address] | [place], [place] | [phone] | | [facility] | | [address] | | | - LABORATORY | | [...] | mL/min/1.73m2 | [facility] | | | [place] | RATE,ESTIMATED | | MEDICAL | | | | mL/min/1.36n6Oxbe than | | CENTER - | | [...] [address] | [place] | [phone] | | [facility] | | [address] | | | - LABORATORY | | [...] St | [place] | | | [facility] | | [address] | | | - BLOOD BANK | [...] [address] | [place] | [phone] | | [facility] | | [address] | | | - LABORATORY | | [...] + | [facility] | [address] | [place] | [phone] | | [facility] | | [address] | | | - LABORATORY | | [...] [address] | [place] | [phone] | | [facility] | | [address] | | | - LABORATORY | | [...] [address] | [place] | [phone] | | [facility] | | [address] | | | - LABORATORY | | [...] New | 120 - 246 U/L | [facility] | | | | method in use as of | | [facility] | | | | December 02, 2018. [...] [address] | [place] | [phone] | | [facility] | | [address] | | | - LABORATORY | | [...] | [address] | [place] | [phone] | | [facility] | | [address] | | | - LABORATORY | | | | + + + + + Vitamin B-12 06/01/2019 10:32 AM PDT) + + + + + + | Component | Value | Ref Range | Performed | Pathologist | | | | | At | Signature | + + + + + + | VITAMIN | 333Comment: DEFICIENT: | 156 - 672 pg/mL | [facility] | | | B-12 | <145 | | [facility] | | | | pg/mLINDETERMINATE: | [...] [address] | [place] | [phone] | | [facility] | | [address] | | | - LABORATORY | | [...] + | [facility] | [address] | [place] | [phone] | | [facility] | | [address] | | | - LABORATORY | | [...] | | | | | | n Freeborn | | | | | + + [...] | | | | | | n Freeborn | | | | | + + [...] 89 | 70 - 109 mg/dL | [facility] [...] [address] | [place] | [phone] | | [facility] | | [address] | | | - LABORATORY | | [...] | | Reticulocyt | | | [facility] | | | e Count | | [...] [address] | [place] | [phone] | | [facility] | | [address] | | | - LABORATORY | | | | + + + + + CBC with Differential (06/01/2019 2:13 AM PDT) + + + + + + | Component | Value | Ref Range | Performed | Pathologist | | | | | At | Signature | + + + + + + | WBC | 6.4 | 4.0 - 11.0 K/uL | [facility] [...] | | | | g/dL | [facility] | | | | [...] | | | Eosinophils | | | [facility] | | [...] [address] | [place] | [phone] | | [facility] | | [address] | | | - LABORATORY | | [...] [address] | [place] | [phone] | | [facility] | | [address] | | | - LABORATORY | | [...] | | | | Comment:Reference | | [facility] | | | | Ranges: 0.00-0.06 = [...] | | | | | | [employer] | | | | | [...] + | [facility] | [address] | [place] | [phone] | | [facility] | | [address] | | | - LABORATORY | | | | + + + + + Magnesium (06/01/2019 2:13 AM PDT) + +-------+ + + + | Component | Value | Ref Range | Performed | Pathologist | | | | | At | Signature | + +-------+ + + + | Magnesium | 2.0 | 1.6 - 2.6 mg/dL | [facility] [...] [address] | [place] | [phone] | | [facility] | | [address] | | | - LABORATORY | | [...] | mL/min/1.73m2 | [facility] | | | EG[place]IAN | RATE,ESTIMATED | | MEDICAL | | | | mL/min/1.59v0Kylo than | | CENTER - | | [...] [address] | [place] | [phone] | | [facility] | | [address] | | | - LABORATORY | | [...] associated prominence of the ventricles. There are tzmv-lw-kzkcfbnx | | | scattered regions of periventricular [...] associated prominence of the ventricles. There are fouc-rl-vouhyvtq | | scattered regions of periventricular and [...] [address] | [place] | [phone] | | [facility] | | [address] | | | - LABORATORY | | | | + + + + + Troponin I (05/31/2019 7:59 PM PDT) + + + + + + | Component | Value | Ref Range | Performed | Pathologist | | | | | At | Signature | + + + + + + | Troponin I | 0.11 (H)Comment: | <0.06 ng/mL | GTE | | | | Comment:Reference | | [...] | | | | | | [employer] | | | | | [...] | [address] | [place] | [phone] | | [facility] | | [address] | | | - LABORATORY | | [...] [address] | [place] | [phone] | | [facility] | | [address] | | | - LABORATORY | | [...] | | Source | | | [facility] | | [...] mL/min/1.73m2 | [facility] | | | [place]IAN | | | MEDICAL | | | [...] 140.00 | 136 - 149 mEq/L | [facility] | | | Venous, POC | | | [facility] | [...] [address] | [place] | [phone] | | [facility] | | [address] | | | - LABORATORY | | [...] - 1.030 | [facility] | | | [place], | | | [facility] | | [...] [address] | [place] | [phone] | | [facility] | | [address] | | | - LABORATORY | | | | + + + + + Magnesium (05/31/2019 2:07 PM PDT) + +-------+ + + + | Component | Value | Ref Range | Performed | Pathologist | | | | | At | Signature | + +-------+ + + + | Magnesium | 1.9 | 1.6 - 2.6 mg/dL | [facility] [...] + | [facility] | [address] | [place] | [phone] | | [facility] | | [address] | | | - LABORATORY | | [...] + | [address] [facility] | [address] | [place] | [phone] | | [facility] | | [address] | | | - LABORATORY | | | | + + + + + CK Total (05/31/2019 2:07 PM PDT) + +-------+ + + + | Component | Value | Ref Range | Performed | Pathologist | | | | | At | Signature | + +-------+ + + + | CK TOTAL | 41 | 34 - 145 U/L | [facility] | | | | | [...] [address] | [place] | [phone] | | [facility] | | [address] | | | - LABORATORY | | [...] | | | | | | [employer] | | | | | [...] [address] | [place] | [phone] | | [facility] | | [address] | | | - LABORATORY | | [...] | Time | | seconds | [facility] | | | | [...] [address] | [place] | [phone] | | [facility] | | [address] | | | - LABORATORY | | [...] use as of December 02, | | [facility] | | | | 2019. Check reference | | MEDICAL | | [...] + | [facility] | [address] | [place] | [phone] | | [facility] | | [address] | | | - LABORATORY | | [...] | mL/min/1.73m2 | [facility] | | | [place]IAN | RATE,ESTIMATED | | MEDICAL | | | | mL/min/1.47d4Bfai than | | CENTER - | | [...] [address] | [place] | [phone] | | [facility] | | [address] | | | - LABORATORY | | [...] + | [facility] | [address] | [place] | [phone] | | [facility] | | [address] | | | - LABORATORY | | [...] [address] | [place] | [phone] | | [facility] | | [address] | | | - LABORATORY | | [...] + | Kofi Bullock Results In - 05/31/2019 3:44 PM PDT [...] | | | | | | lateral [place] age | | | | | | [...] | | | | LEONIDAS CALVO MD ([id number]) | | | | | | on [...] unspecified provider. | | + + + SPRINKLER INSPECTOR REPORT - EXTERNAL SCAN (02/16/2019 12:00 AM PDT) + + + | Narrative | Performed At | + + + | Ordered by an | | | unspecified provider. | | + + + documented in this encounter Visit Diagnoses + + | Diagnosis | + + | Gastrointestinal hemorrhage, unspecified gastrointestinal hemorrhage type | + + documented in this encounter Administered Medications + +--------+ +--------+------+------+ | Medication Order | MAR | Action | Dose | Rate | Site | | | Action | Date | | | | + +--------+ +--------+------+------+ | acetaminophen (TYLENOL) tablet | Given | 06/04/ | 650 mg | | | | [...] | | | | First dose on Mon 19 at 2100 | | PM PDT | [...] | | | | First dose on Fri06/03/19 at 2100 | | | | | [...] +-------+ +--------+---+---+ +-------+ +--------+---+---+ | Given | 09/06/20 | 1 drop | | | | [...] | | | BREAKFAST, First dose on Tue | | AM PDT | | [...] | | | 05/31/19 at 1945, Aditya baptiste, | | | | | | + [...] | | | | | | use [place] 10/325 if ordered. If | | | [...] | | | | | | | 4560-7401 Use NIGHT DOSE for | | | | | | | doses scheduled: HS, 3AM, | | | | | | | Nighttime 2469-6083 If the BG is | | | [...] | | | | | dose on [facility] 06/03/19 at 2100 | | | [...] medications/reasons PHARMACY | | | CONSULT, Starting [facility] 06/10/19 at | | | 1524, [...] | | | | First dose on [facility] 06/12/19 at 0900, | | AM PDT [...] | | | | | dose on 06/08/19 at 0900 | | AM PDT | [...]
--- OUTSIDE RECORDS SUMMARY | ~2020-03-14 | XMS | Encounter Summary ---
Demographics + + + | Address | [address] | | | [place] [address] | + + + | Home Phone | | + + + | Preferred Language | Unknown | + + + | Marital Status | | + + + | Baptism Affiliation | Unknown | + + + | Race | Unknown | + + + | Ethnic Group | Unknown | + + + Author + + + | Author | [facility] | | | and [place] | + + + | Organization | [facility] | | | [...] Team Providers + +------+ + | Care Development Disability Specialist Name | Role | Phone | [...] Description | +--------+--------+ + + + | 01/12/ | Refill | [facility] | Nikolay, | Medication Refill | | 2019 | | MEDICINE [address] | MD Candido | | | | | [facility] | [address] [place] [address] | | | | | [place] [address] | [place] [address] | | | | | [phone] | [phone] | | | | | | | [...] | | 2019 | Visit | | ACCOUNTS COLLECTOR [address] | | | | | | [place] | | | | | | [address] | | | | | | | | +--------+ + + + + | 04/11/ | Appointment | Radiology | Shawn Michael | | | 2019 | | | MD [address] | | | | | | [address] [place] | | | | | | [place] [address] | | | | | | [phone] | | | | | | | | +--------+ + + + + | 04/13/ | Office | Cardiology | Shawn Michael | | | 2019 | Visit | | MD [address] | | | | | | [address] [place] | | | | | | [place], [place] [address] | | | | | | [phone] | | | | | | | [...]
--- OUTSIDE RECORDS SUMMARY | ~2020-03-14 | XMS | Encounter Summary ---
Demographics + + + | Address | [address] | | | [place] [address] | + + + | Home Phone [...] Team Providers + +------+ + | Care Coremaker Name | Role | Phone | + [...] + | 01/13/ | Home Care | [facility] [place] | Autumn Hart RN | SN REPEAT VISIT | | 2019 | Visit | [place] [address] | | | | | | ST [place] | | | | | | [address] | | | | | | [phone] | | | +--------+ + + + [...] + + + | Blood Pressure | 110/62 | 01/14/2020 10:06 AM | | | | | PDT | | + + + + + | Pulse | 104 | 01/14/2020 10:06 AM | | | | | PDT | | + + + + + | Temperature | 36.2 C (97.1 F) | 01/14/2020 10:06 AM | | | | | PDT | | + + + + + | Respiratory Rate | 24 | 01/14/2020 10:06 AM | | | | | PDT | | + + + + + | Oxygen Saturation | 93% | 01/14/2020 10:06 AM | | | | | PDT [...] | | | | | [place] [address] | | | | | | [phone] | | | | | | | | +--------+ + + + + | 04/13/ | Office | Cardiology | Shawn Michael | | | 2019 | Visit | | MD Marcelino [address] | | | | | | [address] [place] | | | | | | [place] [address] | | | | | | [phone] | | | | | | | [...] - REPEAT VISIT | | Discipline - Residential | + + + + +--------+--------+ + + | Problem | Description | Start | Status | Goals | Interventio | | | | Date | | | ns | + + +--------+--------+ + + | [facility] [place] | Falls | | | - | 1 problem | | Disciplines: | | //2 | Active | | | | Residential | | 020 | | | interventio [...] 1 problem | | Disciplines: | | /20/2 | Active | | | | Residential | | 020 | | | interventio [...] | linked to | interventio | | Residential | | 020 | | scheduled/d | [...] | | | | ns | | Residential | | | | | scheduled/d | [...] | | Active | | | | Residential | | 020 | | | interventio [...] Instruct in energy | | | | reinforced with patient | | conservation | | | | and caregiver. The | | breathing technique. | | | | patient and/or caregiver | | | | | | verbalized | | | | | | understanding of energy | | | | | | conservation | | | | | | strategies/breathing | | | | | | techniques as | | | | | | instructed:Yes. | + + +--------+--------+ + | Wound [...]
--- OUTSIDE RECORDS SUMMARY | ~2020-03-14 | XMS | Encounter Summary ---
Demographics + + + | Address | [address] | | | [place] [address] | + + + | Home Phone [...] + | Author | [facility] | | | and [place] | + + + | Organization | [facility] | | | and [...] Team Providers + +------+ + | Care Cutter In Name | Role | Phone | + +------+ + | Candido Link | PCP | | | MD | | | + +------+ + Reason for Referral Diagnostic/Screening (Routine) + +--------+ + + + + | Status | Reason | Specialty | Diagnoses / | Referred By | Referred To | | | | | Procedures | Contact | Contact | + +--------+ + + + + | Authorized | | Radiology | Diagnoses | Maxood, | [facility] | | | | | Coronary | Shawn | [address] | | | | | artery | MD Marcelino | [place], | | | | | disease | [address] | [place] | | | | | involving | St [place] | [address] | | | | | [place] | [place], [place] | Phone: | | | | | coronary | [address] | [phone] | | | | | artery of | Phone: | Fax: | | | | | chemehuevi heart | [phone] | [phone] | | | | | without | Fax: | | | | | | angina | [phone] | | | | | | pectoris | | | | | | | Acute on | | | | | | | chronic | | | | | | | diastolic | | | | | | | heart | | | | | | | failure | | | | | | | ([facility]) | | | | | | | Procedures | | | | | | | ECHO | | | | | | | Complete | | | + +--------+ + + + + Encounter Details +--------+ + + + + | Date | Type | Department | Care Team | Description | +--------+ + + + + | 12/21/ | Orders Only | [facility] | Shawn Michael | Coronary artery | | 2020 | | CARDIOLOGY [address] | MD Marcelino [address] | disease involving | | | | [address] [place], | [address] [place] | [place] coronary | | | | [place] [address] | [place] [address] | artery of che[place]huevi | | | | [phone] | [phone] | heart without angina | | | [...] | | 2019 | Visit | | GLASSIE [address] | | | | | | [place] | | | | | | [address] | | | | | | | | +--------+ + + + + | 04/11/ | Appointment | Radiology | Shawn Michael | | | 2019 | | | MD [address] | | | | | | [address] [place] | | | | | | [place] [address] | | | | | | [phone] | | | | | | | | +--------+ + + + + | 04/13/ | Office | Cardiology | Shawn Michael | | | 2019 | Visit | | MD [address] | | | | | | [address] [place] | | | | | | [place] [address] | | | | | | [phone] | | | | | | | | +--------+ + + + + + + +--------+ + + | Name | Type | Priori | Associated Diagnoses | Order Schedule | | | | ty | | | + + +--------+ + + | ECHO Complete | Echocardiog | Routin | Coronary artery | Expected: | | | michele | e | disease involving | 12/22/2019, Expires: | | | | | [place] coronary | 12/21/2020 | | | | | artery of [place]vi | | | | | | heart without angina | | | | | | pectoris Acute on | | | | | | chronic diastolic | | | | | | heart failure (HCC) | | + + +--------+ + + documented as of this encounter Visit Diagnoses + + | Diagnosis | + + | 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
--- OUTSIDE RECORDS SUMMARY | ~2020-03-14 | XMS | Encounter Summary ---
Demographics + + + | Address | [address] | | | [place] [address] | + + + | Home Phone | | + + + | Preferred Language | Unknown | + + + | Marital Status | | + + + | Alevism Affiliation | Unknown | + + + | Race | Unknown | + + + | Ethnic Group | Unknown | + + + Author + + + | Author | [facility] | | | and [place] | + + + | Organization | [facility] | | | [...] Team Providers + +------+ + | Care Scientific Software Developer Name | Role | Phone | + +------+ + | Caniddo Link | PCP | | | MD [...] | stage [address] | [address] | [address] Phone: | | | | | ([facility]) | [place], | [phone] | | | | | | [place] | Fax: | | | | | | [address] | [phone] | | | | | | Phone: | | | | | | | [phone] | | | | | | | Fax: | | | | | | | [phone] | | + + + + + + + Reason for Visit + + + | Reason | Comments | + + + | TCM - Hosp FU | colitis | + + + Encounter Details +--------+---------+ + + + | Date | Type | Department | Care Team | Description | +--------+---------+ + + + | 03/07/ | Office | [facility] | Nikolay, | Pressure injury of | | 2019 | Visit | MEDICINE [address] | MD Candido | sacral region, stage | | | | [facility] | [address] [place] [address] | 3 ([facility]) (Primary | | | | [place] [address] | [place] [address] | Dx); Generalized | | | | [phone] | [phone] | osteoarthritis; | | | | | | Anemia, blood loss; | | | | | | penitentiary | | | | | | prescription [...] not comfortable with her going to a fci as she had bad experiences in the [...] sacral region, stage 3 (HCC) - * [facility] - AMB Referral 2. Generalized osteoarthritis - Drugs of Abuse, Opiates, Confirm, Urine; Future - Drugs of Abuse, Screen, Urine; Future - HYDROcodone-acetaminophen (NORCO) 7.5-325 mg per tablet; Take 1 tablet by mouth every 6 h ours as needed for Pain. Dispense: 120 tablet; Refill: 0 3. Anemia, blood loss - CBC with Differential; Future 4. 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 use - Drugs of Abuse, [...] Opioid Management Classification 11/01/2019 03/07/2020 PDMP Reviewed [facility] Pre-adjustment Management Classification Low Low Management Classification [...] Aortic stenosis COPD (chronic obstructive pulmonary disease) ([facility]) Coronary artery disease Kidney stone MRSA (methicillin [...] Sig; Surgeon: Edwin Stoddard MD; Location: [facility] HYSTERECTOMY NIRMAL AND BSO TONSILLECTOMY AND ADENOIDECTOMY UPPER GASTROINTESTINAL ENDOSCOPY N/A 06/07/2019 Procedure: EGD; Surgeon: Edwin Stoddard MD; Location: [facility] UPPER GASTROINTESTINAL ENDOSCOPY N/A 08/20/2019 Procedure: EGD; Surgeon: John Grimes MD; Location: [facility] CURRENT MEDICATIONS Current [...] as needed for Chest pain. nystatin (MYCOSTATIN) 068716 UNIT/GM cream ondansetron (ZOFRAN ODT) 4 mg [...] needed. 30 tablet 0 Respiratory Therapy Supplies [facility] Replacement O2 mask. Please evaluate and provide [...] 1. Parts of this documentwere created using [employer] speech recognition software. As a resu lt, [...] | | 2019 | Visit | | [address] | | | | | | [place] | | | | | | [address] | | | | | | | | +--------+ + + + + | 04/11/ | Appointment | Radiology | Shawn Michael | | | 2019 | | | MD [address] | | | | | | [address] [place] | | | | | | [place] [address] | | | | | | [phone] | | | | | | | | +--------+ + + + + | 04/13/ | Office | Cardiology | Shawn Michael | | | 2019 | Visit | | MD [address] | | | | | | [address] [place] | | | | | | [place] [address] | | | | | | [phone] | | | | | | | [...] [address] | [place] | [phone] | | [facility] | | [address] | | | - LABORATORY | | [...] | [address] | [place], [place] | [phone] | | [facility] | | [address] | | | - LABORATORY | | [...] + | Performed at: 01 - Pathology [facility] [address] | REFERENCE LAB | | [facility] [address], [place] [address] Planning Director: Nenita CHAVEZ | | Boogie PhD, Phone: [phone] | | + + + + + + + + | Performing | Address | City/State/Zipcode | Phone Number | | Organization | | | | + + + + + | [facility] | [address] | [place], [place] | [phone] | | REJI CHAVE[place] | [place] | [address] | | + + + + + documented in this encounter Visit Diagnoses + + | Diagnosis | + + | Pressure injury of sacral region, stage 3 (HCC) - Primary | + + | Generalized osteoarthritis Generalized osteoarthrosis, unspecified site | + + | Anemia, blood loss Iron deficiency anemia secondary to blood loss (chronic) | + + | 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 use | + + documented in this encounter Additional Health Concerns + + + + | Infection | Noted Time | Resolved Time | + + + + | Methicillin-resistant Staphylococcus aureus | 06/08/2019 9:39 AM | | | | PDT | | + + + + documented as of this encounter
--- OUTSIDE RECORDS SUMMARY | ~2020-03-14 | XMS | Encounter Summary ---
Demographics + + + | Address | [address] | | | [place] [address] | + + + | Home Phone [...] Providers + +------+ + | Care Supervisor [employer] Name | Role | Phone | + [...] [place] | | | | | | [address] | | | | | | [phone] | | | +--------+ + + + [...] [place] | | | | | | [address] | | | | | | | | +--------+ + + + + | 04/11/ | Appointment | Radiology | Shawn Michael | | | 2019 | | | MD Marcelino [address] | | | | | | [address] | | | | | | [place] [address] | | | | | | [phone] | | | | | | | | +--------+ + + + + | 04/13/ | Office | Cardiology | Shawn Michael | | | 2020 | Visit | | MD Marcelino [address] | | | | | | [address] | | | | | | [place] [address] | | | | | | [phone] | | | | | | | [...]
--- OUTSIDE RECORDS SUMMARY | ~2020-03-14 | XMS | Encounter Summary ---
Demographics + + + | Address | [address] | | | [place] [address] | + + + | Home Phone | | + + + | Preferred Language | Unknown | + + + | Marital Status | | + + + | Worship Affiliation | Unknown | + + + | Race | Unknown | + + + | Ethnic Group | Unknown | + + + Author + + + | Author | [facility] | | | and [place] | + + + | Organization | [facility] | | | [...] Team Providers + +------+ + | Care Professional Skater Name | Role | Phone | + [...] + + | 08/09/ | Telephone | [facility] | Nikolay, | New Medication | | 2019 | | MEDICINE [address] | MD Candido | Request | | | | [facility] | [address] [facility] | | | | | [place] [address] | [place] [address] | | | | | [phone] | [phone] | | | | | | | [...] | 2019 | Visit | | [facility] [address] | | | | | | [place] | | | | | | [address] | | | | | | | | +--------+ + + + + | 04/11/ | Appointment | Radiology | Shawn Michael | | | 2019 | | | MD [address] | | | | | | [address] [place] | | | | | | [place] [address] | | | | | | [phone] | | | | | | | | +--------+ + + + + | 04/13/ | Office | Cardiology | Shawn Michael | | | 2019 | Visit | | MD [address] | | | | | | [address] [place] | | | | | | [place], [place] [address] | | | | | | [phone] | | | | | | | [...]
--- OUTSIDE RECORDS SUMMARY | ~2020-03-14 | XMS | Encounter Summary ---
Demographics + + + | Address | [address] | | | [place] [address] | + + + | Home Phone [...] Providers + +------+ + | Care Hand Hardener Name | Role | Phone | + [...] [place] | | | | | | [address] | | | | | | [phone] | | | +--------+ + + + [...] + + + | Blood Pressure | 110/60 | 12/22/2019 11:20 AM | | | | | PDT | | + + + + + | Pulse | 74 | 12/22/2019 11:20 AM | | | | | PDT | | + + + + + | Temperature | 36.6 C (97.9 F) | 12/22/2019 11:20 AM | | | | | PDT | | + + + + + | Respiratory Rate | 18 | 12/22/2019 11:20 AM | | | | | PDT | | + + + + + | Oxygen Saturation | 97% | 12/22/2019 11:20 AM | | | | | PDT [...] [place] | | | | | | [address] | | | | | | | | +--------+ + + + + | 04/11/ | Appointment | Radiology | Shawn Michael | | | 2019 | | | MD Marcelino [address] | | | | | | [address] | | | | | | [place] [address] | | | | | | [phone] | | | | | | | | +--------+ + + + + | 04/13/ | Office | Cardiology | Zacharynnamdi Shawn | | | 2019 | Visit | | MD Marcelino [address] | | | | | | [address] [place] | | | | | | [place] [address] | | | | | | [phone] | | | | | | | [...] - Residential | + + + + +--------+--------+-------+ + | Problem | Description | Start | Status | Goals | Interventio | | | | Date | | | ns | + + +--------+--------+-------+ + | HH SHARED | Depression | | | - | 1 problem | | DEPRESSION | | | Active | | | | Disciplines: | | 020 | | | interventio | | Residential | | | | | n | [...] 020 | | | interventio | | Residential | | | | | n | | | | | | | scheduled/d | | | | | | | ocumented | | | | | | | in this | | | | | | | visit | + + +--------+--------+-------+ + | Knowledge Deficit, | | | | - | 1 problem | | Education, | | | Active | | | | Discharge Plan | | 020 | | | interventio | | Disciplines: | | | | | n | | Residential, | | | | | scheduled/d | | Physical Therapy, | | | | | ocumented | | Home Health Aide, | | | | | in this | | [employer] Worker, | | | | | visit | | Respiratory Therapy | | | | | | + + +--------+--------+-------+ + | | [...] to | | | | | | [facility] [place] for counseling | | | | | | for other mental | | | | | | health services. | | | | | + + +--------+--------+ + | Pain management | Problem: SHARED | | | See Pain assess [...] Problem: HH SN | | | Instructed patient and [...] Instruct in energy | | | | instructed, reinforced | | conservation | | | | with caregiver. The | | breathing technique. | [...] | | led | | | | Wound location: | [...]
--- OUTSIDE RECORDS SUMMARY | ~2020-03-14 | XMS | Encounter Summary ---
Demographics + + + | Address | [address] | | | [place] [address] | + + + | Home Phone [...] Providers + +------+ + | Care Technical Aid Name | Role | Phone | + +------+ + | Candido Link | PCP | | | MD | | | + +------+ + Reason for Visit + + + | Reason | Comments | + + + | Chest Pressure | | + + + Auth/Cert +--------+--------+ + + + + | Status | Reason | Specialty | Diagnoses / | Referred By | Referred To | | | | | Procedures | Contact | Contact | +--------+--------+ + + + + | | | | Diagnoses | | | | | | | Melena | | | | | | | Acute GI | | | | | | | bleeding | | | | | | | Anemia of | | | | | | | chronic | | | | | | | disease | | | | | | | Chest pain | | | | | | | in adult | | | | | | | | | | +--------+--------+ + + + + Encounter Details +--------+---------+ + + + | Date | Type | Department | Care Team | Description | +--------+---------+ + + + | 08/20/ | Surgery | [facility] | [facility] | EGD | | 2019 | | [facility] | MD [facility] [address] | | | | [address] | [address] [place] | | | | | [place], [place] | [place] [address] | | | | | [address] | [phone] | | | | | [phone] | | | +--------+---------+ + + + [...] + + + | Blood Pressure | 196/82 | 08/26/2019 7:55 AM | | | | | PST | | + + + + + | Pulse | 100 | 08/26/2019 9:29 AM | | | | | PST | | + + + + + | Temperature | 37.4 C (99.4 F) | 08/26/2019 7:55 AM | | | | | PST | | + + + + + | Respiratory Rate | 28 | 08/26/2019 9:29 AM | | | | | PST | | + + + + + | Oxygen Saturation | 95% | 08/26/2019 9:29 AM | | | | | PST | | + + + + + | Inhaled Oxygen | - | - | | | Concentration | | | | + + + + + | Weight | 54.3 kg (119 lb 11.4 | 08/26/2019 4:00 AM | | | | oz) | PST | | + + + + + | Height | 165.1 cm (5' 5") | 08/21/2019 11:57 AM | | | | | PST | | + + + + + | Body Mass Index | 19.92 | 08/21/2019 11:57 AM | | | | | PST | | + + + + + documented in this encounter Discharge Summaries Sharon Robles MD - 08/26/2019 9:56 AM PST [place] [place] H[facility]PITALIST DISCHARGE SUMMARY Pt. Name/Age/: Ángela Crowley 89 y.o. 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 89 yo F with history of COPD, s/p AVR, hypertension, who presented with chest tightness and melena. #Severe sepsis #Acute diverticulitis Patient developed severe sepsis 08/20 overnight - tachycardia, tachypnea, leukocytosis. Wor kup showed acute diverticulitis on CT scan 08/21 with thickening of the rectosigmoid area. P atient was placed on bowel rest, IV antibiotics with notable improvement. Transitioned to or al antibiotics 08/24. Leukocytosis resolved, patient afebrile, pain improving. Patient did n ot tolerate flagyl so switched to Augmentin to complete course of therapy. #Melena #COLE Patient has a history of anemia, takes oral iron at home. Started on PPI drip here. EGD ([place]) showed no significant lesions or active bleeding. Rec'd 1u PRBC. 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 No recurrence of bleeding here. Patient rec'd 3 doses oral iron here. - repeat ferritin in 4-6 weeks #Atypical chest pain Substernal, occurred at rest, resolved over 2-3 hours, no complaints of pain since admissio n. Chest pain reproducible with palpation. No suspicion for ACS with low troponins. Patient has chronic peaked T waves on ECG. Echo showed slightly worsening Ao insufficiency and pulm hypertension but no significant changes. #COPD Stable with no e/o exacerbation. Uses 3L at home chronically. #Stage 2 sacral decub POA Received routine wound care here Patient discharging home with home health RN/PT/OT. DISCHARGE MEDICATIONS: Discharge Medications New Medications Details amoxicillin-clavulanate 875-125 mg per tablet Take 1 tablet by mouth 2 times daily for 3 days. Indications: Diverticulitis of the Gastro intestinal Tract aka: AUGMENTIN Changed Medications Details predniSONE 10 mg tablet Take 1 tablet by mouth Daily for 90 days. Patient to increase to 40mg for 5 days for COPD exacerbation, then return to 10mg daily. What changed: how much to take aka: DELTASONE Unchanged Medications Details acetaminophen 325 mg tablet Take 2 tablets by mouth every 6 hours as needed for Pain (or fever >= 38.6 C (101.5 F)). aka: TYLENOL albuterol-ipratropium 2.5-0.5 mg/3 mL Soln Take 3 mLs by nebulization 4 times daily for 90 days. aspirin 81 mg chewable tablet Take 1 tablet by mouth Daily. atorvaSTATin 20 mg tablet Take 1 tablet by mouth every morning. aka: LIPITOR brimonidine 0.2% ophthalmic solution Place 1 drop into both eyes 2 times daily. aka: ALPHAGAN budesonide 0.5 mg/2 mL nebulizer solution Take 2 mLs by nebulization 2 times daily. Dx Code J44.90 aka: PULMICORT busPIRone 5 mg tablet Take 1 tablet by mouth 3 times daily as needed. aka: BUSPAR calcium carbonate 750 MG chewable tablet Take 2 tablets by mouth Daily as needed for Heartburn. aka: TUMS EX CALCIUM CARBONATE PO Take 1,000 mg by mouth Daily. cetirizine 10 mg tablet Take 1 tablet by mouth Daily. aka: zyrTEC dicyclomine 10 mg capsule Take 10 mg by mouth Daily as needed for GI Upset. aka: BENTYL docusate sodium 250 MG capsule Take 250 mg by mouth every morning. Hold for loose stools aka: COLACE dorzolamide 2% ophthalmic solution Place 1 drop into both eyes 2 times daily. aka: TRUSOPT escitalopram 5 MG tablet Take 1 tablet by mouth Daily. aka: LEXAPRO estradiol 0.1 mg/g vaginal cream Apply 1 gm to vagina daily x 2 weeks then 1gm once weekly aka: ESTRACE VAGINAL famotidine 40 MG tablet Take 1 tablet by mouth nightly. aka: PEPCID ferrous sulfate 325 mg tablet Take 1 tablet by mouth daily (with breakfast). fluticasone 50 mcg/nasal spray 1 spray by Nasal route Daily as needed for Allergies. aka: FLONASE furosemide 20 mg tablet Take 1 tablet by mouth Daily. aka: LASIX HYDROcodone-acetaminophen 7.5-325 mg per tablet Take 1 tablet by mouth every 8 hours as needed for Pain. aka: NORCO latanoprost 0.005% ophthalmic solution Place 1 drop into both eyes nightly. aka: XALATAN loperamide 2 MG tablet Take 2 mg by mouth Twice daily as needed for Diarrhea. aka: IMODIUM A-D metoprolol succinate 25 mg 24 hr tablet Take 1 tablet by mouth nightly. aka: TOPROL-XL nitroglycerin 0.[address] 0.4 mg under the tongue every 5 minutes as needed for Chest pain. aka: NITROSTAT ondansetron 4 mg disintegrating tablet Take 1 tablet by mouth every 8 hours as needed for Nausea. aka: ZOFRAN ODT oxygen Inhale 3 L into the lungs continuous. ALETHEA: 99 months. pantoprazole 40 mg tablet Take 1 tablet by mouth every morning (before breakfast). aka: PROTONIX Polyethylene Glycol 3350 Powd Take 17 g by mouth Daily as needed for Constipation. polyvinyl alcohol 1.4% ophthalmic solution Place 2 drops into both eyes every morning. aka: LIQUITEARS PRESERVISION AREDS 2 Caps Take 1 capsule by mouth 2 times daily. Respiratory Therapy Supplies Misc Replacement O2 mask. Please evaluate and provide an O2 mask that is more useful to the pat ient. Duration: Lifetime Dx: COPD, severe J44.9 senna 8.6 mg tablet Take 1 tablet by mouth Daily as needed for Constipation. aka: SENOKOT sodium chloride 0.65% nasal spray 2 sprays by Each Nare route every 2 hours as needed for Nasal Dryness. aka: OCEAN UNABLE TO FIND Adult Pull ups, medium size VENTOLIN HFA 90 mcg/puff inhaler Generic drug: albuterol Inhale 2 puffs into the lungs every 4 hours as needed for Wheezing. VITAMIN D PO Take 600 Units by mouth every morning. Discontinued Medications carvedilol 6.25 mg tablet aka: COREG Patient prescribed 2 beta blockers currently, recommend continuing one beta barbara only. Most recent weight: Input and output for last 24hrs: Wt Readings from Last 1 Encounters: 08/26/19 54.3 kg (119 lb 11.4 oz) I/O last 24 Hours: In: 660 [P.O.:660] Out: 2400 [Urine:2400] Vitals Ranges: Temp: [35.4 C (95.7 F)-37.4 C (99.4 F)] 37.4 C (99.4 F) Pulse: [85-100] 100 Resp: [17-28] 28 BP: (118-196)/(55-82) 196/82 Vitals: Temp: 37.4 C (99.4 F) BP: 196/82 Pulse: 100 Resp: 28 SpO2: 95 % SpO2 95 % on nasal cannula at flow rate 2.5L/min PHYSICAL EXAM: Patient seen and examined by me on 08/26/19 Gen: WDWN, nad CV: regular rate and rhythm no m/r/g Pulm: decreased air movement, no wheezing or rales Abdominal: nontender, nondistended, normal bowel tones PROCEDURES AND CONSULTS: Procedures: EGD Consults: GI ([place]) PENDING RESULTS: None DISPOSITION AND DISCHARGE INSTRUCTIONS: Follow-up Information Candido Link MD On 08/27/2019. Specialty: Internal Medicine Why: This is your hospital follow up appointment, scheduled for 10:30, Please check in at 10:15. Contact information: [address] [place] [phone] Condition: stable Diet: general Less than 30 minutes were spent on discharge and coordination of post-hospital care. Electronically signed by: Sharon Robles MD, 08/26/2019 9:56 AM [facility] documented in this enco unter Discharge Instructions Instructions Sharon Robles MD - 08/26/2019Neysa, You were hospitalized with concern for GI bleeding and diverticulitis. Your EGD (endoscopy) did not show active bleeding. You developed acute diverticulitis which we treated with antibiotics. Continue taking Augmentin for 3 more days as prescribed. We have scheduled a hospital follow up for you with Dr Millan for tomorrow. You received IV iron while you were in the hospital for low iron levels. You can buy lidocaine patches over the counter at the drugstore (Salonpas is a common brand ) to help with your chronic pain. Sharon Robles MD documented in this encounter Medications at Time [...] | | Take 1 tablet by | 6 | 0 | 08/26/20 | | | amoxicillin-clavulan | mouth 2 times daily | tablet | | 19 | 9 | | ate (AUGMENTIN) | for 3 days. | | | | | | [...] (BUSPAR) | Take 1 tablet by | 60 | 2 | 08/10/20 | | | 5 mg | mouth 3 times daily | tablet | | 19 | 9 | | tabletIndications: | as needed. | [...] predniSONE | Take 1 tablet by | 110 | 3 | 08/05/20 | | | (DELTASONE) 10 mg | mouth Daily for 90 | tablet | | 19 | 9 | | tabletIndications: | days. Patient to | | | | | | Chronic obstructive | increase to 40mg for | | | | | | pulmonary disease, | 5 days for COPD | | | | | | unspecified COPD | exacerbation, then | | | | | | type ([facility]) | return to 10mg | | | | | | | daily. | | | | | [...] documented as of this encounter Progress Notes Sharon Robles MD - 08/25/2019 11:42 AM PST LOCATED WITHIN [facility] [place] HOSPITALIST PROGRESS NOTE Patient: Ángela Crowley : 1930: Age: 89 y.o. 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 89 yo F with history of COPD, s/p AVR, hypertension, who presented with chest tightness and melena. Plan #Severe sepsis #Acute diverticulitis Patient developed severe sepsis 08/20 overnight - tachycardia, tachypnea, leukocytosis. Wor kup showed acute diverticulitis on CT scan 08/21 with thickening of the rectosigmoid area. P atient was placed on bowel rest, IV antibiotics. Has improved notably over the last few days . Transition to oral antibiotics 08/24. Leukocytosis resolved, patient afebrile, pain improv ing. Will plan for total 10d course of antibiotics. #Melena #COLE Patient has a history of anemia. Started on PPI drip here. EGD ([facility]) showed no significan t lesions or active bleeding. Rec'd 1u PRBC. Small angiodysplasias may be causing slow bleed . Given persistently low iron/ferritin will give IV iron here (patient takes oral iron at mayela e). #Atypical chest pain Substernal, occurred at rest, resolved over 2-3 hours, no complaints of pain since admissio n. Chest pain reproducible with palpation. No suspicion for ACS with low troponins. Patient has chronic peaked T waves on ECG. Echo showed slightly worsening Ao insufficiency and pulm hypertension but no significant changes. #COPD Patient has a chronic 3L oxygen requirement. No e/o exacerbation. Stable on 2.5L currently. #Hypertension SBP ranging from 110s-150s over the last 12h. On home metoprolol, holding lasix for now. #Stage 2 sacral decub Minor skin breakdown at gluteal cleft, present before admission for months. FEN: gen Ppx: SCD Disposition: anticipate DC home tomorrow with Subjective CC: no complaints Patient states she is feeling well currently. Denies chest pain. Abdominal pain is better, still having some frequent stooling. She had some nasal congestion this morning that was unc omfortable for her, she states this happens every day for her. Disappointed to not go home u ntil tomorrow. ROS was performed and was negative except as noted above. Exam Exam unchanged from yesterday Gen: WDWN, nad HEENT: MMM, neck supple CV: regular rate and rhythm no m/r/g Pulm: LCAB Abdominal: soft, nontender, nondistended, normal bowel tones Extremities: well perfused, no edema Skin: warm, dry, no rashes Neuro: alert, CN intact, no focal deficits Psych: normal mood and affect Allergies: Allergies Allergen Reactions Percocet [Oxycodone] Unknown Pregabalin Unknown Lyrica Sulfa Antibiotics Unknown Current Medications: Current Facility-Administered Medications Medication Dose Route Frequency Provider Last Rate Last Dose acetaminophen (TYLENOL) tablet 650 mg 650 mg Oral Q4H PRN Sam Valladares MD 650 m g at 08/22/19 1618 albuterol-ipratropium 2.5-0.5 mg/3 mL nebulizer solution 3 mL 3 mL Nebulization RT Q6H Sam Valladares MD 3 mL at 08/25/19 0855 albuterol-ipratropium 2.5-0.5 mg/3 mL nebulizer solution 3 mL 3 mL Nebulization RT Q6H PRN Sam Valladares MD 3 mL at 08/21/19 0612 aluminum & magnesium hydroxide-simethicone (MAALOX PLUS REGULAR STRENGTH) 200-200-20 mg /5 mL suspension 30 mL 30 mL Oral Q4H PRN Sam Valladares MD atorvaSTATin (LIPITOR) tablet 20 mg 20 mg Oral QAM Sam Valladares MD 20 mg at 0806 brimonidine (ALPHAGAN) 0.2% ophthalmic solution 1 drop 1 drop Both Eyes BID Sharon gastelum MD 1 drop at 08/25/19 0808 budesonide (PULMICORT) nebulizer solution 0.5 mg 0.5 mg Nebulization RT BID Sam Valladares MD 0.5 mg at 08/25/19 0855 carboxymethylcellulose (PF) (REFRESH CELLUVISC, THERATEARS) 1% ophthalmic gel 1 drop 1 drop Both Eyes Q1H PRN Sam Valladares MD 1 drop at 08/22/19 0851 ciprofloxacin (CIPRO) tablet 500 mg 500 mg Oral BID Sharon Robles MD 500 mg at 08/25 0803 dicyclomine (BENTYL) capsule 20 mg 20 mg Oral TID PRN Sam Valladares MD 20 mg at 08/25/19 0804 docusate sodium (COLACE) capsule 100 mg 100 mg Oral BID PRN Sam Valladares MD dorzolamide (TRUSOPT) 2% ophthalmic solution 1 drop 1 drop Both Eyes BID Sharon Robles MD 1 drop at 08/25/19 0807 escitalopram (LEXAPRO) tablet 5 mg 5 mg Oral Daily Sam Valladares MD 5 mg at 08/07 0806 ferric gluconate (FERRLECIT) 125 mg in sodium chloride 0.9% 100 mL IVPB 125 mg Intrave nous Daily Sharon Robles MD 110 mL/hr at 08/24/19 2351 125 mg at 08/24/19 2351 fluticasone (FLONASE) 50 mcg/nasal spray 2 spray 2 spray Each Nare Daily Sam Loera MD 2 spray at 08/25/19 0808 HYDROcodone-acetaminophen (NORCO) 7.5-325 mg per tablet 1 tablet 1 tablet Oral Q8H PRN Sam Valladares MD 1 tablet at 08/25/19 0424 HYDROmorphone (DILAUDID) injection 0.5-1 mg 0.5-1 mg Intravenous Q3H PRN Sam Loera MD 0.5 mg at 08/21/19 0903 lidocaine (LIDODERM) 5% patch 1 patch 1 patch Transdermal Daily Sharon Robles MD 1 p atch at 08/25/19 1100 LORazepam (ATIVAN) tablet 0.5 mg 0.5 mg Oral Nightly PRN, MR x 1 Sam Valladares MD metoprolol succinate (TOPROL-XL) ER tablet 25 mg 25 mg Oral Daily Sam Valladares MD 25 mg at 08/25/19 0805 metroNIDAZOLE (FLAGYL) tablet 500 mg 500 mg Oral TID Sharon Robles MD 500 mg at 08/07 0805 nitroglycerin (NITROSTAT) SL tablet 0.4 mg 0.4 mg Sublingual Q5 Min PRN Sam Aleman ch, MD 0.4 mg at 08/19/19 1423 ondansetron (ZOFRAN) injection 4 mg 4 mg Intravenous Q6H PRN Sam Valladares MD pantoprazole (PROTONIX) DR tablet 40 mg 40 mg Oral BID AC Sam Valladares MD 40 mg at 08/25/19 0604 predniSONE (DELTASONE) tablet 10 mg 10 mg Oral Daily Sam Valladares MD 10 mg at 1 10/25/18 1109 sodium chloride (OCEAN) 0.65% nasal spray 2 spray 2 spray Each Nare Q1H PRN Sam Valladares MD 2 spray at 08/24/19 2150 trolamine salicylate (ASPERCREME) 10% cream Topical 4x Daily PRN Sharon Robles MD Current Infusions: Objective Data Point of care glucose No results for input(s): POCGLU in the last 168 hours. Labs last 24 hours Recent Results (from the past 24 hour(s)) CBC with Differential Collection Time: 08/25/19 5:36 AM Result Value Ref Range WBC 5.9 4.0 - 11.0 K/uL RBC 3.44 (L) 3.70 - 5.20 M/uL Hemoglobin 9.9 (L) 11.5 - 16.0 g/dL Hematocrit 32.1 (L) 34.0 - 47.0 % MCV 93.3 83.0 - 101.0 fL MCH 28.8 28.0 - 35.0 pg MCHC 30.8 (L) 32.0 - 36.0 g/dL RDW-CV 15.3 (H) <15.0 % RDW-SD 52.5 (H) 35.1 - 46.3 fL Platelet Count 160 140 - 440 K/uL MPV 10.7 6.5 - 12.4 fL % Neutrophils 62.3 45.0 - 82.0 % % Lymphocytes 20.4 20.0 - 45.0 % % Monocytes 14.8 (H) 4.0 - 12.0 % % Eosinophils 1.4 0.0 - 5.0 % % Basophils 0.2 0.0 - 1.0 % % Immature Granulocytes 0.9 (H) 0.0 - 0.4 % Absolute Neutrophils 3.66 1.80 - 8.50 K/uL Absolute Lymphocytes 1.20 0.60 - 3.20 K/uL Absolute Monocytes 0.87 0.00 - 1.00 K/uL Absolute Eosinophils 0.08 0.00 - 0.40 K/uL Absolute Basophils 0.01 0.00 - 0.10 K/uL Absolute Immature Granulocytes 0.05 (H) 0.00 - 0.03 K/uL % nRBC 0 0 - 2 per 100 WBCs Absolute nRBC 0.00 0.00 - 0.01 K/uL Basic Metabolic Panel Collection Time: 08/25/19 5:36 AM Result Value Ref Range Na 142 136 - 145 mmol/L K 4.2 3.4 - 5.1 mmol/L Cl 106 98 - 107 mmol/L CO2 31 20 - 31 mmol/L Anion Gap 5 3 - 16 mmol/L Glucose 75 60 - 106 mg/dL BUN 18 9 - 23 mg/dL Creatinine 0.73 0.55 - 1.02 mg/dL eGFR if not >60 >=60 mL/min/1.73m2 Calcium 8.5 (L) 8.7 - 10.4 mg/dL BUN/Creatinine Ratio 24.7 Micro results (more choices using dot micro) Microbiology Results (72 hrs) No results found for the last 72 hours. Radiology results (more choices using dot risresults) No results found. Vitals Ranges: Temp: [35.4 C (95.7 F)-36.7 C (98.1 F)] 35.4 C (95.7 F) Pulse: [78-94] 85 Resp: [17-28] 17 BP: (112-182)/(48-88) 118/55 Vitals: Temp: 35.4 C (95.7 F) BP: 118/55 Pulse: 85 Resp: 17 SpO2: 96 % SpO2 96 % on nasal cannula at flow rate 2.5L/min Sharon Robles MD 08/25/2019 11:42 AM [facility] Sharon Hector MD - 4:57 PM PST [facility]PITAL[facility] PROGRESS NOTE Patient: Ángela Crowley : 1930: Age: 89 y.o. 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 89 yo F with history of COPD, s/p AVR, hypertension, who presented with chest tightness and melena. Plan #Severe sepsis #Acute diverticulitis Patient developed severe sepsis 08/20 overnight - tachycardia, tachypnea, leukocytosis. Wor kup showed acute diverticulitis on CT scan 08/21 with thickening of the rectosigmoid area. P atient was placed on bowel rest, IV antibiotics. Has improved notably over the last few days . Transition to oral antibiotics today. Leukocytosis resolved, patient afebrile, pain improv ing. CTM. #Melena #COLE Patient has a history of anemia. Started on PPI drip here. EGD ([facility]) showed no significan t lesions or active bleeding. Rec'd 1u PRBC. Small angiodysplasias may be causing slow bleed . Given persistently low iron/ferritin will give IV iron here (patient takes oral iron at mayela e). #Atypical chest pain Substernal, occurred at rest, resolved over 2-3 hours, no complaints of pain since admissio n. Chest pain reproducible with palpation. No suspicion for ACS with low troponins. Patient has chronic peaked T waves on ECG. Echo showed slightly worsening Ao insufficiency and pulm hypertension but no significant changes. #COPD Patient has a chronic 3L oxygen requirement. No e/o exacerbation. #Hypertension Labile blood pressures over the last 12 hours, will CTM for now, consider resuming home ant ihypertensives if persistently elevated. #Stage 2 sacral decub Minor skin breakdown at gluteal cleft, present before admission for months. FEN: gen Ppx: SCD Disposition: anticipate DC home in 1-2d Patient's son was updated by phone Subjective CC: no complaints Patient states she is feeling well currently. Denies chest pain. Abdominal pain is better. She had some nasal congestion this morning that was uncomfortable for her. ROS was performed and was negative except as noted above. Exam Gen: WDWN, nad HEENT: MMM, neck supple CV: regular rate and rhythm no m/r/g Pulm: LCAB Abdominal: soft, nontender, nondistended, normal bowel tones Extremities: well perfused, no edema Skin: warm, dry, no rashes Neuro: alert, CN intact, no focal deficits Psych: normal mood and affect Allergies: Allergies Allergen Reactions Percocet [Oxycodone] Unknown Pregabalin Unknown Lyrica Sulfa Antibiotics Unknown Current Medications: Current Facility-Administered Medications Medication Dose Route Frequency Provider Last Rate Last Dose acetaminophen (TYLENOL) tablet 650 mg 650 mg Oral Q4H PRN Sam Valladares MD 650 m g at 08/22/19 1618 albuterol-ipratropium 2.5-0.5 mg/3 mL nebulizer solution 3 mL 3 mL Nebulization RT Q6H Sam Valladares MD 3 mL at 08/24/19 1631 albuterol-ipratropium 2.5-0.5 mg/3 mL nebulizer solution 3 mL 3 mL Nebulization RT Q6H PRN Sam Valladares MD 3 mL at 08/21/19 0612 aluminum & magnesium hydroxide-simethicone (MAALOX PLUS REGULAR STRENGTH) 200-200-20 mg /5 mL suspension 30 mL 30 mL Oral Q4H PRN Sam Valladares MD atorvaSTATin (LIPITOR) tablet 20 mg 20 mg Oral QAM Sam Valladares MD 20 mg at 0933 brimonidine (ALPHAGAN) 0.2% ophthalmic solution 1 drop 1 drop Both Eyes BID Sharon gastelum MD 1 drop at 08/24/19 1149 budesonide (PULMICORT) nebulizer solution 0.5 mg 0.5 mg Nebulization RT BID Sam Valladares MD 0.5 mg at 08/24/19 0823 carboxymethylcellulose (PF) (REFRESH CELLUVISC, THERATEARS) 1% ophthalmic gel 1 drop 1 drop Both Eyes Q1H PRN Sam Valladares MD 1 drop at 08/22/19 0851 ciprofloxacin (CIPRO) tablet 500 mg 500 mg Oral BID Sharon Robles MD 500 mg at 08/24 0932 dicyclomine (BENTYL) capsule 20 mg 20 mg Oral TID PRN Sam Valladares MD 20 mg at 08/24/19 1602 docusate sodium (COLACE) capsule 100 mg 100 mg Oral BID PRN Sam Valladares MD dorzolamide (TRUSOPT) 2% ophthalmic solution 1 drop 1 drop Both Eyes BID Sharon Robles MD 1 drop at 08/24/19 1150 escitalopram (LEXAPRO) tablet 5 mg 5 mg Oral Daily Sam Valladares MD 5 mg at 08/06 06/24 0933 ferric gluconate (FERRLECIT) 125 mg in sodium chloride 0.9% 100 mL IVPB 125 mg Intrave nous Daily Sharon Robles MD fluticasone (FLONASE) 50 mcg/nasal spray 2 spray 2 spray Each Nare Daily Sam Loera MD 2 spray at 08/24/19 0942 HYDROcodone-acetaminophen (NORCO) 7.5-325 mg per tablet 1 tablet 1 tablet Oral Q8H PRN Sam Valladares MD 1 tablet at 08/24/19 1657 HYDROmorphone (DILAUDID) injection 0.5-1 mg 0.5-1 mg Intravenous Q3H PRN Sam Loera MD 0.5 mg at 08/21/19 0903 lidocaine (LIDODERM) 5% patch 1 patch 1 patch Transdermal Daily Sharon Robles MD 1 p atch at 08/24/19 1050 LORazepam (ATIVAN) tablet 0.5 mg 0.5 mg Oral Nightly PRN, MR x 1 Sam Valladares MD metoprolol succinate (TOPROL-XL) ER tablet 25 mg 25 mg Oral Daily Sam Valladares MD 25 mg at 08/24/19 0933 metroNIDAZOLE (FLAGYL) tablet 500 mg 500 mg Oral TID Sharon Robles MD 500 mg at 08/06 06/24 1331 nitroglycerin (NITROSTAT) SL tablet 0.4 mg 0.4 mg Sublingual Q5 Min PRN Sam Aleman ch, MD 0.4 mg at 08/19/19 1423 ondansetron (ZOFRAN) injection 4 mg 4 mg Intravenous Q6H PRN Sam Valladares MD pantoprazole (PROTONIX) DR tablet 40 mg 40 mg Oral BID AC Sam Valladares MD 40 mg at 08/24/19 1556 predniSONE (DELTASONE) tablet 10 mg 10 mg Oral Daily Sam Valladares MD 10 mg at 1 10/24/18 0935 sodium chloride (OCEAN) 0.65% nasal spray 2 spray 2 spray Each Nare Q1H PRN Sam Valladares MD 2 spray at 08/24/19 0340 trolamine salicylate (ASPERCREME) 10% cream Topical 4x Daily PRN Sharon Robles MD Current Infusions: Objective Data Point of care glucose No results for input(s): POCGLU in the last 168 hours. Labs last 24 hours Recent Results (from the past 24 hour(s)) CBC with Differential Collection Time: 08/24/19 4:38 AM Result Value Ref Range WBC 6.9 4.0 - 11.0 K/uL RBC 3.43 (L) 3.70 - 5.20 M/uL Hemoglobin 9.8 (L) 11.5 - 16.0 g/dL Hematocrit 31.4 (L) 34.0 - 47.0 % MCV 91.5 83.0 - 101.0 fL MCH 28.6 28.0 - 35.0 pg MCHC 31.2 (L) 32.0 - 36.0 g/dL RDW-CV 15.5 (H) <15.0 % RDW-SD 51.8 (H) 35.1 - 46.3 fL Platelet Count 148 140 - 440 K/uL MPV 10.2 6.5 - 12.4 fL Immature Platelet Fraction 1.8 0.9 - 11.2 % % Neutrophils 68.1 45.0 - 82.0 % % Lymphocytes 14.7 (L) 20.0 - 45.0 % % Monocytes 14.3 (H) 4.0 - 12.0 % % Eosinophils 1.9 0.0 - 5.0 % % Basophils 0.4 0.0 - 1.0 % % Immature Granulocytes 0.6 (H) 0.0 - 0.4 % Absolute Neutrophils 4.68 1.80 - 8.50 K/uL Absolute Lymphocytes 1.01 0.60 - 3.20 K/uL Absolute Monocytes 0.98 0.00 - 1.00 K/uL Absolute Eosinophils 0.13 0.00 - 0.40 K/uL Absolute Basophils 0.03 0.00 - 0.10 K/uL Absolute Immature Granulocytes 0.04 (H) 0.00 - 0.03 K/uL % nRBC 0 0 - 2 per 100 WBCs Absolute nRBC 0.00 0.00 - 0.01 K/uL Basic Metabolic Panel Collection Time: 08/24/19 4:38 AM Result Value Ref Range Na 144 136 - 145 mmol/L K 3.8 3.4 - 5.1 mmol/L Cl 108 (H) 98 - 107 mmol/L CO2 29 20 - 31 mmol/L Anion Gap 7 3 - 16 mmol/L Glucose 76 60 - 106 mg/dL BUN 13 9 - 23 mg/dL Creatinine 0.65 0.55 - 1.02 mg/dL eGFR if not >60 >=60 mL/min/1.73m2 Calcium 8.5 (L) 8.7 - 10.4 mg/dL BUN/Creatinine Ratio 20.0 Micro results (more choices using dot micro) Microbiology Results (72 hrs) Procedure Component Value Units Date/Time Clostridioides difficle NAAT reflex to Tox Ag [[id number]] Collected: 08/22/19105 Order Status: Completed Lab Status: Final result Updated: 08/22/19353 Specimen: Stool Narrative: The following orders were created for panel order Clostridioides difficle NAAT reflex to T ox Ag. Procedure Abnormality Status --------- ------ Clostridioides difficile...[[id number]] Final result Please view results for these tests on the individual orders. Clostridioides difficile NAAT Reflex [[id number]] Collected: 08/22/19 010 Order Status: Completed Lab Status: Final result Updated: 08/22/19353 Specimen: Stool C. difficile, Interp Negative Comment: No Toxigenic C. difficile detected. Consider other causes of Diarrhea. Repeat te sting should not be performed within 7 days. C. difficile, NAAT Negative Radiology results (more choices using dot risresults) No results found. Vitals Ranges: Temp: [35.4 C (95.7 F)-37.3 C (99.1 F)] 36.7 C (98.1 F) Pulse: [88-111] 94 Resp: [18-20] 20 BP: (112-193)/(48-90) 115/54 Vitals: Temp: 36.7 C (98.1 F) BP: 115/54 Pulse: 94 Resp: 20 SpO2: 99 % SpO2 99 % on nasal cannula at flow rate 2.5L/min Sharon Robles MD 08/24/2019 4:58 PM [facility] Sam Ferris MD - 08/23/2019 8:06 PM PST [facility]G Hospitalist Progress Note Ángela Crowley is a 89 y.o. female ASSESSMENT and PLAN: Active Hospital Problems Diagnosis *Diverticulitis Decubitus ulcer of sacral region, stage 2 Other chest pain Melena COPD (chronic obstructive pulmonary disease) S/p TAVR (transcatheter aortic valve replacement), bioprosthetic Resolved Hospital Problems No resolved problems to display. Acute diverticulitis without bleeding/repeated episodes of diverticulitis: -Denied significant abdominal pain, had no fevers or white count on admission, but overnigh t August 20, developed worsening confusion, abdominal pain, diarrhea, leukocytosis, and fe vers, transferred to stepdown -CT scan August 21 showed thickening of the rectosigmoid area, with a possible contained gas-filled region in the posterior aspect consistent with diverticulitis - C diff neg -Made n.p.o. August 21, hydrocodone/hydromorphone as needed, started IV Zosyn and fluids - Not a good surgical candidate, no indication for surgery at this time, but monitor closel y - Improved greatly 08/22, fevers and white count resolved, and diarrhea slowed, continue Zo syn and advance diet Melena -History of anemia,hemoglobin is 8.4 on arrival -Started on pantoprazole drip -Discussed with Dr. Boucher,EGD showed no significant lesions or active bleeding -Received a unit of PRBC's -Iron level is low, ferritin within normal range. 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, may need IV iron at times - HGB 9.2 and stable (got hemoconcentrated after diverticulitis, now back to where she was before) Chest Pain, atypical -Substernal, occurred at rest, resolved over 2-3 hours, no complaints of pain since admis shelli, chest pain is reproducible with palpation, did not have an MD on admission -Held aspirin for black tarry stools, aspirin given on ER arrival, no nitro given (patien t refused) - No good evidence of ACS, trops0.01 3 -EKG'sagain showed peaked T waves, but this is been a finding since July and does not appear new -ECHOshowed slightly worsening aortic insufficiency and pulmonary hypertension, but no si gnificant changes COPD, not in acute exacerbation/chronic respiratory failure with hypoxia On chronic O2 use at 3L NC, continue oxygen regimen duonebs prn, no acute issues Aortic valve replacement for aortic stenosis in past Stable echo appearance, follow-up with cardiology HTN -hold BBfor now -hold lasix, consider restartingtomorrow Depression/Anxiety Continue escitalopram CAD: -Hold aspirin for several days,may need to discuss risk/benefit of continuing aspirin as an outpatient Stage II sacral decubitus ulcer, present on admission: -Minor skin breakdown at the gluteal cleft,present before admission for months according to her - put pad in place, work on improved nutrition, and avoid weight on the area, wound care co nsult Disposition : Home with son/home health Prophylaxis: SCD SUBJECTIVE: Denies abdominal pain this morning. No nausea or vomiting. Wants to advance to solid diet . No chest pain or shortness of breath. Feels better. VITALS: Temp: 35.7 C (96.3 F), Pulse: 89, Resp: 18, BP: 156/74, SpO2 98 % on nasal cannula Temp Min: 35.7 C (96.2 F) Max: 36.6 C (97.9 F) Weight: 54.9 kg (121 lb) Intake/Output Summary (Last 24 hours) at 08/23/20192005 Last data filed at 08/23/20191948 Gross per 24 hour Intake 562 ml Output 1400 ml Net -838 ml PHYSICAL EXAM: General: Alert, no distress, comfortable appearing Cardiovascular: Regular rate and rhythm Respiratory: Stably diminished bilaterally Abdomen: Soft, nontender slight discomfort to palpation in the lower abdominal region, no rebound or guarding, bowel sounds present Extremities: Warm and well-perfused Ceja catheter present: No DIAGNOSTIC STUDIES: Available data and images were reviewed personally. Significant results and findings are a ddressed here or in the Assessment and Plan. Recent Results (from the past 24 hour(s)) CBC with Differential Result Value Ref Range WBC 6.1 4.0 - 11.0 K/uL RBC 3.21 (L) 3.70 - 5.20 M/uL Hemoglobin 9.2 (L) 11.5 - 16.0 g/dL Hematocrit 30.2 (L) 34.0 - 47.0 % MCV 94.1 83.0 - 101.0 fL MCH 28.7 28.0 - 35.0 pg MCHC 30.5 (L) 32.0 - 36.0 g/dL RDW-CV 15.9 (H) <15.0 % RDW-SD 55.1 (H) 35.1 - 46.3 fL Platelet Count 136 (L) 140 - 440 K/uL MPV 10.4 6.5 - 12.4 fL % Neutrophils 70.0 45.0 - 82.0 % % Lymphocytes 13.9 (L) 20.0 - 45.0 % % Monocytes 13.4 (H) 4.0 - 12.0 % % Eosinophils 2.1 0.0 - 5.0 % % Basophils 0.3 0.0 - 1.0 % % Immature Granulocytes 0.3 0.0 - 0.4 % Absolute Neutrophils 4.28 1.80 - 8.50 K/uL Absolute Lymphocytes 0.85 0.60 - 3.20 K/uL Absolute Monocytes 0.82 0.00 - 1.00 K/uL Absolute Eosinophils 0.13 0.00 - 0.40 K/uL Absolute Basophils 0.02 0.00 - 0.10 K/uL Absolute Immature Granulocytes 0.02 0.00 - 0.03 K/uL % nRBC 0 0 - 2 per 100 WBCs Absolute nRBC 0.00 0.00 - 0.01 K/uL Basic Metabolic Panel Result Value Ref Range Na 145 136 - 145 mmol/L K 3.8 3.4 - 5.1 mmol/L Cl 109 (H) 98 - 107 mmol/L CO2 29 20 - 31 mmol/L Anion Gap 7 3 - 16 mmol/L Glucose 85 60 - 106 mg/dL BUN 11 9 - 23 mg/dL Creatinine 0.67 0.55 - 1.02 mg/dL eGFR if not >60 >=60 mL/min/1.73m2 Calcium 8.5 (L) 8.7 - 10.4 mg/dL BUN/Creatinine Ratio 16.4 No results found. acetaminophen, 650 mg, Oral, Q4H PRN albuterol-ipratropium, 3 mL, Nebulization, RT Q6H albuterol-ipratropium, 3 mL, Nebulization, RT Q6H PRN aluminum & magnesium hydroxide-simethicone, 30 mL, Oral, Q4H PRN ampicillin-sulbactam, 3 g, Intravenous, Q6H atorvaSTATin, 20 mg, Oral, QAM budesonide, 0.5 mg, Nebulization, RT BID carboxymethylcellulose (PF), 1 drop, Both Eyes, Q1H PRN dicyclomine, 20 mg, Oral, TID PRN docusate sodium, 100 mg, Oral, BID PRN escitalopram, 5 mg, Oral, Daily fluticasone, 2 spray, Each Nare, Daily HYDROcodone-acetaminophen, 1 tablet, Oral, Q8H PRN HYDROmorphone, 0.5-1 mg, Intravenous, Q3H PRN LORazepam, 0.5 mg, Oral, Nightly PRN, MR x 1 metoprolol succinate, 25 mg, Oral, Daily nitroglycerin, 0.4 mg, Sublingual, Q5 Min PRN ondansetron, 4 mg, Intravenous, Q6H PRN pantoprazole, 40 mg, Oral, BID AC predniSONE, 10 mg, Oral, Daily sodium chloride, 2 spray, Each Nare, Q1H PRN Total time of approximately 25 minutes was spent with the patient and/or patient's family, and/or on the patient's floor/unit, of which more than 50% was spent counseling and/or coord ination the patient's care as outlined above. Sam Valladares MD 08/23/2019 8:06 PM [facility] Sam Ferris MD - 08/22/2019 7:45 AM PST [facility] PMG Hospitalist Progress Note Ángela Crowley is a 89 y.o. female ASSESSMENT and PLAN: Active Hospital Problems Diagnosis *Diverticulitis Decubitus ulcer of sacral region, stage 2 Heart failure with acute decompensation, type unknown Myocardial infarction type 2 Other chest pain Melena COPD (chronic obstructive pulmonary disease) S/p TAVR (transcatheter aortic valve replacement), bioprosthetic Resolved Hospital Problems No resolved problems to display. Acute diverticulitis/repeated episodes of diverticulitis: -Denied significant abdominal pain, had no fevers or white count on admission, but overnigh t August 20, developed worsening confusion, abdominal pain, diarrhea, leukocytosis, and fe vers -CT scan August 21 showed thickening of the rectosigmoid area, with a possible contained gas-filled region in the posterior aspect consistent with diverticulitis - C diff neg -Made n.p.o. August 21, hydrocodone/hydromorphone as needed, started IV Zosyn and fluids - Not a good surgical candidate, no indication for surgery at this time, but monitor closel y - Developed tachycardia, tachypnea, WBC to 15, concerned for developing severe sepsis, gave IV bolus and transferred to stepdown - Improved greatly 08/22, fevers and white count resolved, and diarrhea slowed, continue Zo syn and advance diet Melena -History of anemia,hemoglobin is 8.4 on arrival -Started on pantoprazole drip -Discussed with Dr. Boucher,EGD showed no significant lesions or active bleeding -Received a unit of blood, hemoglobin this afternoon is 10.8 -Iron level is low, ferritin within normal range. 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, may need IV iron at times - HGB 9.7 and stable Chest Pain, atypical -Substernal, occurred at rest, resolved over 2-3 hours, no complaints of pain since admis shelli, chest pain is reproducible with palpation -Held aspirin for black tarry stools, aspirin given on ER arrival, no nitro given (patien t refused) - No good evidence of ACS, trops0.01 3 -EKG'sagain showed peaked T waves, but this is been a finding since July and does not appear new -ECHOshowed slightly worsening aortic insufficiency and pulmonary hypertension, but no si gnificant changes COPD, not in acute exacerbation On chronic O2 use at 3L NC, continue oxygen regimen duonebs prn, no acute issues Aortic valve replacement for aortic stenosis in past Stable echo appearance, follow-up with cardiology HTN -hold BBfor now -hold lasix, consider restartingtomorrow Depression/Anxiety Continue escitalopram CAD: -Hold aspirin for several days,may need to discuss risk/benefit of continuing aspirin as an outpatient Stage II sacral decubitus ulcer: -Minor skin breakdown at the gluteal cleft,put pad in place, work on improved nutrition, and avoid weight on the area, wound care consult Disposition : Transfer to floor today Prophylaxis: SCD SUBJECTIVE: Continues to have lower abdominal pain, although improved since yesterday. No nausea or vo miting, improved appetite. Mild chest pain at times, chronic shortness of breath, not worse now. In discussion with nursing, was confused at times last night, appears to , but has b een pleasant and cooperative the last several hours. VITALS: Temp: 36.3 C (97.3 F), Pulse: 90, Resp: 20, BP: 144/79, SpO2 96 % on nasal cannula Temp Min: 36.3 C (97.3 F) Max: 38.1 C (100.5 F) Weight: 54.9 kg (121 lb) Intake/Output Summary (Last 24 hours) at 08/22/2019 0745 Last data filed at 08/22/2019 0600 Gross per 24 hour Intake 2243 ml Output 1735 ml Net 508 ml PHYSICAL EXAM: General: Alert, no distress, thin, frail, appropriate, ZUNI Cardiovascular: Regular rate and rhythm Respiratory: Diminished breath sounds throughout with scattered rhonchi, mild tachypnea Abdomen: Soft, mild discomfort in the lower abdominal region to palpation with no rebound or guarding, bowel sounds present Extremities: Warm and well perfused Ceja catheter present: No DIAGNOSTIC STUDIES: Available data and images were reviewed personally. Significant results and findings are a ddressed here or in the Assessment and Plan. Recent Results (from the past 24 hour(s)) Culture, Blood Result Value Ref Range Culture No growth: Monitored continually by instrument for 5 days Culture, Blood Result Value Ref Range Culture No growth: Monitored continually by instrument for 5 days Urinalysis with Microscopic with Culture if Indicated Result Value Ref Range Color Yellow Light Yellow, Yellow, Straw Clarity Clear Clear pH, Urine 6.0 5.0 - 8.0 [address] [place] 1.029 1.001 - 1.030 Protein, Urine Negative Negative Blood, Urine Small (A) Negative Glucose, Urine Negative Negative Ketones, Urine Negative Negative Bilirubin, Urine Negative Negative Nitrite, Urine Negative Negative Leukocyte Esterase, Urine Moderate (A) Negative Urobilinogen, Urine 2.0 mg/dL (A) 0.2 mg/dL, 1.0 mg/dL, Negative WBC UA 10-15 (A) 0 - 2 /HPF RBC UA 0-2 0 - 2 /HPF SQUAMOUS EPITHELIAL UA 10-15 (A) 0 - 2 /LPF BACTERIA UA 1+ (A) Negative /HPF MUCUS UA Present (A) Negative /LPF BUDDING YEAST UA Few (A) Negative URINE COMMENT Urine Culture Set Up Basic Metabolic Panel Result Value Ref Range Na 143 136 - 145 mmol/L K 3.9 3.4 - 5.1 mmol/L Cl 106 98 - 107 mmol/L CO2 32 (H) 20 - 31 mmol/L Anion Gap 5 3 - 16 mmol/L Glucose 100 60 - 106 mg/dL BUN 13 9 - 23 mg/dL Creatinine 0.67 0.55 - 1.02 mg/dL eGFR if not >60 >=60 mL/min/1.73m2 Calcium 8.3 (L) 8.7 - 10.4 mg/dL BUN/Creatinine Ratio 19.4 CBC with Differential Result Value Ref Range WBC 14.8 (H) 4.0 - 11.0 K/uL RBC 3.83 3.70 - 5.20 M/uL Hemoglobin 10.8 (L) 11.5 - 16.0 g/dL Hematocrit 35.4 34.0 - 47.0 % MCV 92.4 83.0 - 101.0 fL MCH 28.2 28.0 - 35.0 pg MCHC 30.5 (L) 32.0 - 36.0 g/dL RDW-CV 16.5 (H) <15.0 % RDW-SD 55.8 (H) 35.1 - 46.3 fL Platelet Count 195 140 - 440 K/uL MPV 10.2 6.5 - 12.4 fL % Neutrophils 77.9 45.0 - 82.0 % % Lymphocytes 9.6 (L) 20.0 - 45.0 % % Monocytes 11.4 4.0 - 12.0 % % Eosinophils 0.4 0.0 - 5.0 % % Basophils 0.2 0.0 - 1.0 % % Immature Granulocytes 0.5 (H) 0.0 - 0.4 % Absolute Neutrophils 11.52 (H) 1.80 - 8.50 K/uL Absolute Lymphocytes 1.42 0.60 - 3.20 K/uL Absolute Monocytes 1.68 (H) 0.00 - 1.00 K/uL Absolute Eosinophils 0.06 0.00 - 0.40 K/uL Absolute Basophils 0.03 0.00 - 0.10 K/uL Absolute Immature Granulocytes 0.07 (H) 0.00 - 0.03 K/uL % nRBC 0 0 - 2 per 100 WBCs Absolute nRBC 0.00 0.00 - 0.01 K/uL Clostridioides difficile NAAT Reflex Result Value Ref Range C. difficile, Interp Negative Negative C. difficile, NAAT Negative CBC with Differential Result Value Ref Range WBC 8.9 4.0 - 11.0 K/uL RBC 3.40 (L) 3.70 - 5.20 M/uL Hemoglobin 9.7 (L) 11.5 - 16.0 g/dL Hematocrit 32.1 (L) 34.0 - 47.0 % MCV 94.4 83.0 - 101.0 fL MCH 28.5 28.0 - 35.0 pg MCHC 30.2 (L) 32.0 - 36.0 g/dL RDW-CV 16.3 (H) <15.0 % RDW-SD 56.6 (H) 35.1 - 46.3 fL Platelet Count 140 140 - 440 K/uL MPV 10.2 6.5 - 12.4 fL % Neutrophils 80.4 45.0 - 82.0 % % Lymphocytes 8.3 (L) 20.0 - 45.0 % % Monocytes 10.0 4.0 - 12.0 % % Eosinophils 0.5 0.0 - 5.0 % % Basophils 0.3 0.0 - 1.0 % % Immature Granulocytes 0.5 (H) 0.0 - 0.4 % Absolute Neutrophils 7.13 1.80 - 8.50 K/uL Absolute Lymphocytes 0.74 0.60 - 3.20 K/uL Absolute Monocytes 0.89 0.00 - 1.00 K/uL Absolute Eosinophils 0.04 0.00 - 0.40 K/uL Absolute Basophils 0.03 0.00 - 0.10 K/uL Absolute Immature Granulocytes 0.04 (H) 0.00 - 0.03 K/uL % nRBC 0 0 - 2 per 100 WBCs Absolute nRBC 0.00 0.00 - 0.01 K/uL Basic Metabolic Panel Result Value Ref Range Na 144 136 - 145 mmol/L K 4.1 3.4 - 5.1 mmol/L Cl 108 (H) 98 - 107 mmol/L CO2 30 20 - 31 mmol/L Anion Gap 6 3 - 16 mmol/L Glucose 76 60 - 106 mg/dL BUN 13 9 - 23 mg/dL Creatinine 0.63 0.55 - 1.02 mg/dL eGFR if not >60 >=60 mL/min/1.73m2 Calcium 8.1 (L) 8.7 - 10.4 mg/dL BUN/Creatinine Ratio 20.6 Magnesium Result Value Ref Range Magnesium 1.9 1.6 - 2.6 mg/dL Ct Abdomen Pelvis W Contrast Result Date: 08/21/[address] ABDOMEN AND PELVIS 08/21/2019 11:31 AM CLINICAL HISTORY: Abdominal pain, acu te, nonlocalized COMPARISON: CT June 04 and more remote imaging TECHNIQUE: Axial ayleen ges are performed through the abdomen and pelvis following the uneventful intravenous admini stration of 75 mL Omnipaque 350 contrast. Coronal and sagittal reformations are also pe rformed. ABDOMEN FINDINGS: An aortic valve prosthesis is again partially imaged. Coronary arterial calcification is present. There is minimal right pleural fluid, with more pronounc ed bronchial wall thickening and clustered nodularity in the imaged lower lungs. A consolid ative component is again suggested in the posterior right costophrenic sulcus. The gallblad melani is surgically absent. Prominent, generalized biliary ductal dilation persists and appear s slightly increased from imaging of June 04, with the common duct measuring up to approxi mately 23 mm in diameter proximally and 13 mm more distally near the pancreatic head. Dilat ion of the main pancreatic duct up to a diameter of approximately 7 mm also persists. No me chanical cause for obstruction is identified. There is generalized pancreatic atrophy. The liver demonstrates a similar 1.5 cm high attenuation, likely enhancing lesion in the far in ferior, posterior right hepatic lobe, which is chronic and favors a hemangioma or other barrington gn lesion. Spleen and adrenal glands are unremarkable. There are similar small hypodensiti es within and arising from both kidneys, consistent with cysts. No nephroureterolithiasis o r hydroureteronephrosis is evident. There is persistent or recurrent wall thickening in the rectosigmoid region, somewhat more eccentric in appearance compared with previous imaging, w ith extensive diverticulosis again apparent in this region and extending into the descending colon. Stranding of the perirectal and pericolonic fat is again apparent. In addition, a blind-ending small caliber gas containing outpouching is now evident along the posterior mar gin of the bowel near the rectosigmoid junction. No free air or organized fluid collection is evident. There is minimal free fluid in the right paracolic gutter. No pathologic lymph node enlargement or hernia is evident. 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 Noncalcified plaque ecce ntrically in the immediate infrarenal aorta again mild to moderately narrows vessel caliber. Calcified plaque is again visible at the origins of several visceral aortic branches. Delfina id osseous fusion and changes of posterior decompression are again apparent at the lumbosacr al junction, in the setting of chronic anterolisthesis. Degenerative disc disease, anteroli sthesis and central canal and foraminal stenosis are again apparent immediately above this l evel as well. PELVIS FINDINGS: The uterus is absent and the ovaries are not identified. T he bladder is unremarkable. No pathologic lymph node enlargement or hernia is evident. The re are degenerative changes of the hips and pubic symphysis. 1. PERSISTENT OR RECURRENT SOMEWHAT ECCENTRIC WALL THICKENING IN THE RECTOSIGMOID REGION C OMPARED WITH IMAGING OF JUNE 04, POSSIBLY A REFLECTION OF DIVERTICULITIS ALTHOUGH THE PRES ENCE OF A COLONIC MASS CANNOT BE EXCLUDED AND ENDOSCOPIC FOLLOW-UP SHOULD BE STRONGLY CONSID ERED. A SMALL GAS-FILLED OUTPOUCHING IS NOW APPARENT ALONG THE POSTERIOR MARGIN OF THE LAITH L IN THIS REGION AND COULD REFLECT CONTAINED PERFORATION OR SINUS OF UNCERTAIN ACUITY. NO F REE INTRAPERITONEAL AIR OR FLUID COLLECTION IS APPARENT. 2. SLIGHT PROGRESSION OF GENERALIZ ED BILIARY DUCTAL DILATION AND PERSISTENT DILATION OF THE MAIN PANCREATIC DUCT WITHOUT A VIS IBLE MECHANICAL CAUSE FOR OBSTRUCTION. CLINICAL AND LABORATORY CORRELATION AND CONSIDERATIO N FOR MRCP OR ERCP IS ADVISED. 3. BRONCHIAL WALL THICKENING AND CLUSTERED NODULARITY IN THE IMAGED LOWER LUNGS WITH A MORE CONSOLIDATIVE REGION AGAIN APPARENT IN THE RIGHT COSTOPHRENI C SULCUS, FAVORING SEQUELA OF CHRONIC SMALL AIRWAYS CENTERED INFECTION OR INFLAMMATION. 4. 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 Dictated and Signed by: Sivakumar Ramon MD Electronically signed: 08/21/2019 12:45 PM acetaminophen, 650 mg, Oral, Q4H PRN albuterol-ipratropium, 3 mL, Nebulization, RT Q6H albuterol-ipratropium, 3 mL, Nebulization, RT Q6H PRN aluminum & magnesium hydroxide-simethicone, 30 mL, Oral, Q4H PRN atorvaSTATin, 20 mg, Oral, QAM budesonide, 0.5 mg, Nebulization, RT BID docusate sodium, 100 mg, Oral, BID PRN escitalopram, 5 mg, Oral, Daily fluticasone, 2 spray, Each Nare, Daily HYDROcodone-acetaminophen, 1 tablet, Oral, Q8H PRN HYDROmorphone, 0.5-1 mg, Intravenous, Q3H PRN LORazepam, 0.5 mg, Oral, Nightly PRN, MR x 1 metoprolol succinate, 25 mg, Oral, Daily nitroglycerin, 0.4 mg, Sublingual, Q5 Min PRN ondansetron, 4 mg, Intravenous, Q6H PRN pantoprazole, 40 mg, Oral, BID AC piperacillin-tazobactam, 3.375 g, Intravenous, Q8H predniSONE, 10 mg, Oral, Daily sodium chloride, 2 spray, Each Nare, Q1H PRN sodium chloride 0.45% with KCl 20 mEq/L, , Intravenous, Continuous Total time of approximately 25 minutes was spent with the patient and/or patient's family, and/or on the patient's floor/unit, of which more than 50% was spent counseling and/or coord ination the patient's care as outlined above. Sam Valladares MD 08/22/2019 7:45 AM [facility] Sam Ferris MD - 08/21/2019 2:34 PM PST [facility] PMG Hospitalist Progress Note Ángela Crowley is a 89 y.o. female ASSESSMENT and PLAN: Active Hospital Problems Diagnosis *Diverticulitis Decubitus ulcer of sacral region, stage 2 Heart failure with acute decompensation, type unknown Myocardial infarction type 2 Other chest pain Melena COPD (chronic obstructive pulmonary disease) S/p TAVR (transcatheter aortic valve replacement), bioprosthetic Resolved Hospital Problems No resolved problems to display. Acute diverticulitis/repeated episodes of diverticulitis: -Denied significant abdominal pain, had no fevers or white count on admission, but overnigh t August 20, developed worsening abdominal pain, diarrhea, leukocytosis, and fevers -CT scan August 21 showed thickening of the rectosigmoid area, with a possible contained gas-filled region in the posterior aspect consistent with diverticulitis -Made n.p.o. August 21, hydrocodone/hydromorphone as needed, started IV Zosyn and fluids - Not a good surgical candidate, no indication for surgery at this time, but monitor closel y - Developed tachycardia, tachypnea, WBC to 15, concerned for developing severe sepsis, gave IV bolus and transferred to stepdown Melena - History of anemia, hemoglobin is 8.4 on arrival -Started on pantoprazole drip -Discussed with Dr. Boucher, EGD showed no significant lesions or active bleeding -Received a unit of blood, hemoglobin this afternoon is 10.8 - Iron level is low, ferritin within normal range. 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, may need IV iron at times Chest Pain, atypical - Substernal, occurred at rest, resolved over 2-3 hours, no complaints of pain since admiss ion, chest pain is reproducible with palpation - Held aspirin for black tarry stools, aspirin given on ER arrival, no nitro given (patient refused) - No good evidence of ACS, trops 0.01 3 -EKG's again showed peaked T waves, but this is been a finding since July and does not a ppear new -ECHO showed slightly worsening aortic insufficiency and pulmonary hypertension, but no sig nificant changes COPD, not in acute exacerbation On chronic O2 use at 3L NC, continue oxygen regimen duonebs prn, no acute issues Aortic valve replacement for aortic stenosis in past Stable echo appearance, follow-up with cardiology HTN -hold BB for now -hold lasix, consider restarting tomorrow Depression/Anxiety Continue escitalopram CAD: -Hold aspirin for several days, may need to discuss risk/benefit of continuing aspirin as a n outpatient Stage II sacral decubitus ulcer: -Minor skin breakdown at the gluteal cleft, put pad in place, work on improved nutrition, a nd avoid weight on the area Disposition : She would like to return home to [place] when she is discharged Prophylaxis: SCD SUBJECTIVE: More confused this morning, complained of pain in the abdomen. This is new since last nigh t. Does feel short of breath as well. No nausea or vomiting. Had a number of loose stools last night. No melena reported. Has had episodes of diverticulitis in the past. Unable t o give further history. VITALS: Temp: 37.5 C (99.5 F), Pulse: 102, Resp: 24, BP: 155/69, SpO2 96 % on nasal cannula wit h humidification Temp Min: 36 C (96.8 F) Max: 38.1 C (100.5 F) Weight: 54.9 kg (121 lb) Intake/Output Summary (Last 24 hours) at 08/21/2019 1446 Last data filed at 08/21/2019 1300 Gross per 24 hour Intake 580 ml Output 462 ml Net 118 ml PHYSICAL EXAM: General: More anxious, confused than yesterday Cardiovascular: Tachycardic, regular in the 110s and 120s Respiratory: Diminished breath sounds throughout, increased tachypnea Abdomen: Soft, significant discomfort to palpation throughout much of the lower abdomen, bowel sounds present Extremities: Warm and well-perfused Ceja catheter present: No DIAGNOSTIC STUDIES: Available data and images were reviewed personally. Significant results and findings are a ddressed here or in the Assessment and Plan. Recent Results (from the past 24 hour(s)) Basic Metabolic Panel Result Value Ref Range Na 144 136 - 145 mmol/L K 3.4 3.4 - 5.1 mmol/L Cl 108 (H) 98 - 107 mmol/L CO2 28 20 - 31 mmol/L Anion Gap 8 3 - 16 mmol/L Glucose 104 60 - 106 mg/dL BUN 15 9 - 23 mg/dL Creatinine 0.76 0.55 - 1.02 mg/dL eGFR if not >60 >=60 mL/min/1.73m2 Calcium 8.3 (L) 8.7 - 10.4 mg/dL BUN/Creatinine Ratio 19.7 CBC with Differential Result Value Ref Range WBC 13.6 (H) 4.0 - 11.0 K/uL RBC 3.92 3.70 - 5.20 M/uL Hemoglobin 11.1 (L) 11.5 - 16.0 g/dL Hematocrit 36.5 34.0 - 47.0 % MCV 93.1 83.0 - 101.0 fL MCH 28.3 28.0 - 35.0 pg MCHC 30.4 (L) 32.0 - 36.0 g/dL RDW-CV 16.4 (H) <15.0 % RDW-SD 55.8 (H) 35.1 - 46.3 fL Platelet Count 190 140 - 440 K/uL MPV 10.1 6.5 - 12.4 fL % Neutrophils 79.5 45.0 - 82.0 % % Lymphocytes 9.0 (L) 20.0 - 45.0 % % Monocytes 10.4 4.0 - 12.0 % % Eosinophils 0.5 0.0 - 5.0 % % Basophils 0.1 0.0 - 1.0 % % Immature Granulocytes 0.5 (H) 0.0 - 0.4 % Absolute Neutrophils 10.83 (H) 1.80 - 8.50 K/uL Absolute Lymphocytes 1.22 0.60 - 3.20 K/uL Absolute Monocytes 1.42 (H) 0.00 - 1.00 K/uL Absolute Eosinophils 0.07 0.00 - 0.40 K/uL Absolute Basophils 0.02 0.00 - 0.10 K/uL Absolute Immature Granulocytes 0.07 (H) 0.00 - 0.03 K/uL % nRBC 0 0 - 2 per 100 WBCs Absolute nRBC 0.00 0.00 - 0.01 K/uL Urinalysis with Microscopic with Culture if Indicated Result Value Ref Range Color Yellow Light Yellow, Yellow, Straw Clarity Clear Clear pH, Urine 6.0 5.0 - 8.0 Specific [place] 1.029 1.001 - 1.030 Protein, Urine Negative Negative Blood, Urine Small (A) Negative Glucose, Urine Negative Negative Ketones, Urine Negative Negative Bilirubin, Urine Negative Negative Nitrite, Urine Negative Negative Leukocyte Esterase, Urine Moderate (A) Negative Urobilinogen, Urine 2.0 mg/dL (A) 0.2 mg/dL, 1.0 mg/dL, Negative WBC UA 10-15 (A) 0 - 2 /HPF RBC UA 0-2 0 - 2 /HPF SQUAMOUS EPITHELIAL UA 10-15 (A) 0 - 2 /LPF BACTERIA UA 1+ (A) Negative /HPF MUCUS UA Present (A) Negative /LPF BUDDING YEAST UA Few (A) Negative URINE COMMENT Urine Culture Set Up Basic Metabolic Panel Result Value Ref Range Na 143 136 - 145 mmol/L K 3.9 3.4 - 5.1 mmol/L Cl 106 98 - 107 mmol/L CO2 32 (H) 20 - 31 mmol/L Anion Gap 5 3 - 16 mmol/L Glucose 100 60 - 106 mg/dL BUN 13 9 - 23 mg/dL Creatinine 0.67 0.55 - 1.02 mg/dL eGFR if not >60 >=60 mL/min/1.73m2 Calcium 8.3 (L) 8.7 - 10.4 mg/dL BUN/Creatinine Ratio 19.4 CBC with Differential Result Value Ref Range WBC 14.8 (H) 4.0 - 11.0 K/uL RBC 3.83 3.70 - 5.20 M/uL Hemoglobin 10.8 (L) 11.5 - 16.0 g/dL Hematocrit 35.4 34.0 - 47.0 % MCV 92.4 83.0 - 101.0 fL MCH 28.2 28.0 - 35.0 pg MCHC 30.5 (L) 32.0 - 36.0 g/dL RDW-CV 16.5 (H) <15.0 % RDW-SD 55.8 (H) 35.1 - 46.3 fL Platelet Count 195 140 - 440 K/uL MPV 10.2 6.5 - 12.4 fL % Neutrophils 77.9 45.0 - 82.0 % % Lymphocytes 9.6 (L) 20.0 - 45.0 % % Monocytes 11.4 4.0 - 12.0 % % Eosinophils 0.4 0.0 - 5.0 % % Basophils 0.2 0.0 - 1.0 % % Immature Granulocytes 0.5 (H) 0.0 - 0.4 % Absolute Neutrophils 11.52 (H) 1.80 - 8.50 K/uL Absolute Lymphocytes 1.42 0.60 - 3.20 K/uL Absolute Monocytes 1.68 (H) 0.00 - 1.00 K/uL Absolute Eosinophils 0.06 0.00 - 0.40 K/uL Absolute Basophils 0.03 0.00 - 0.10 K/uL Absolute Immature Granulocytes 0.07 (H) 0.00 - 0.03 K/uL % nRBC 0 0 - 2 per 100 WBCs Absolute nRBC 0.00 0.00 - 0.01 K/uL Ct Abdomen Pelvis W Contrast Result Date: 08/21/[address] ABDOMEN AND PELVIS 08/21/2019 11:31 AM CLINICAL HISTORY: Abdominal pain, acu te, nonlocalized COMPARISON: CT June 04 and more remote imaging TECHNIQUE: Axial ayleen ges are performed through the abdomen and pelvis following the uneventful intravenous admini stration of 75 mL Omnipaque 350 contrast. Coronal and sagittal reformations are also pe rformed. ABDOMEN FINDINGS: An aortic valve prosthesis is again partially imaged. Coronary arterial calcification is present. There is minimal right pleural fluid, with more pronounc ed bronchial wall thickening and clustered nodularity in the imaged lower lungs. A consolid ative component is again suggested in the posterior right costophrenic sulcus. The gallblad melani is surgically absent. Prominent, generalized biliary ductal dilation persists and appear s slightly increased from imaging of June 04, with the common duct measuring up to approxi mately 23 mm in diameter proximally and 13 mm more distally near the pancreatic head. Dilat ion of the main pancreatic duct up to a diameter of approximately 7 mm also persists. No me chanical cause for obstruction is identified. There is generalized pancreatic atrophy. The liver demonstrates a similar 1.5 cm high attenuation, likely enhancing lesion in the far in ferior, posterior right hepatic lobe, which is chronic and favors a hemangioma or other [place] gn lesion. Spleen and adrenal glands are unremarkable. There are similar small hypodensiti es within and arising from both kidneys, consistent with cysts. No nephroureterolithiasis o r hydroureteronephrosis is evident. There is persistent or recurrent wall thickening in the rectosigmoid region, somewhat more eccentric in appearance compared with previous imaging, w ith extensive diverticulosis again apparent in this region and extending into the descending colon. Stranding of the perirectal and pericolonic fat is again apparent. In addition, a blind-ending small caliber gas containing outpouching is now evident along the posterior mar gin of the bowel near the rectosigmoid junction. No free air or organized fluid collection is evident. There is minimal free fluid in the right paracolic gutter. No pathologic lymph node enlargement or hernia is evident. 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 Noncalcified plaque ecce ntrically in the immediate infrarenal aorta again mild to moderately narrows vessel caliber. Calcified plaque is again visible at the origins of several visceral aortic branches. Delfina id osseous fusion and changes of posterior decompression are again apparent at the lumbosacr al junction, in the setting of chronic anterolisthesis. Degenerative disc disease, anteroli sthesis and central canal and foraminal stenosis are again apparent immediately above this l evel as well. PELVIS FINDINGS: The uterus is absent and the ovaries are not identified. T he bladder is unremarkable. No pathologic lymph node enlargement or hernia is evident. The re are degenerative changes of the hips and pubic symphysis. 1. PERSISTENT OR RECURRENT SOMEWHAT ECCENTRIC WALL THICKENING IN THE RECTOSIGMOID REGION C OMPARED WITH IMAGING OF JUNE 04, POSSIBLY A REFLECTION OF DIVERTICULITIS ALTHOUGH THE PRES ENCE OF A COLONIC MASS CANNOT BE EXCLUDED AND ENDOSCOPIC FOLLOW-UP SHOULD BE STRONGLY CONSID ERED. A SMALL GAS-FILLED OUTPOUCHING IS NOW APPARENT ALONG THE POSTERIOR MARGIN OF THE LAITH L IN THIS REGION AND COULD REFLECT CONTAINED PERFORATION OR SINUS OF UNCERTAIN ACUITY. NO F REE INTRAPERITONEAL AIR OR FLUID COLLECTION IS APPARENT. 2. SLIGHT PROGRESSION OF GENERALIZ ED BILIARY DUCTAL DILATION AND PERSISTENT DILATION OF THE MAIN PANCREATIC DUCT WITHOUT A VIS IBLE MECHANICAL CAUSE FOR OBSTRUCTION. CLINICAL AND LABORATORY CORRELATION AND CONSIDERATIO N FOR MRCP OR ERCP IS ADVISED. 3. BRONCHIAL WALL THICKENING AND CLUSTERED NODULARITY IN THE IMAGED LOWER LUNGS WITH A MORE CONSOLIDATIVE REGION AGAIN APPARENT IN THE RIGHT COSTOPHRENI C SULCUS, FAVORING SEQUELA OF CHRONIC SMALL AIRWAYS CENTERED INFECTION OR INFLAMMATION. 4. 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 Dictated and Signed by: Sivakumar Ramon MD Electronically signed: 08/21/2019 12:45 PM acetaminophen, 650 mg, Oral, Q4H PRN albuterol-ipratropium, 3 mL, Nebulization, RT Q6H albuterol-ipratropium, 3 mL, Nebulization, RT Q6H PRN aluminum & magnesium hydroxide-simethicone, 30 mL, Oral, Q4H PRN atorvaSTATin, 20 mg, Oral, QAM budesonide, 0.5 mg, Nebulization, RT BID docusate sodium, 100 mg, Oral, BID PRN escitalopram, 5 mg, Oral, Daily fluticasone, 2 spray, Each Nare, Daily HYDROcodone-acetaminophen, 1 tablet, Oral, Q8H PRN HYDROmorphone, 0.5-1 mg, Intravenous, Q3H PRN LORazepam, 0.5 mg, Oral, Nightly PRN, MR x 1 metoprolol succinate, 25 mg, Oral, Daily nitroglycerin, 0.4 mg, Sublingual, Q5 Min PRN ondansetron, 4 mg, Intravenous, Q6H PRN pantoprazole, 40 mg, Oral, BID AC piperacillin-tazobactam, 3.375 g, Intravenous, Once piperacillin-tazobactam, 3.375 g, Intravenous, Q8H predniSONE, 10 mg, Oral, Daily sodium chloride, 2 spray, Each Nare, Q1H PRN sodium chloride 0.45% with KCl 20 mEq/L, , Intravenous, Continuous Total time of approximately 35 minutes was spent with the patient and/or patient's family, and/or on the patient's floor/unit, of which more than 50% was spent counseling and/or coord ination the patient's care as outlined above. Sam Valladares MD 08/21/2019 2:46 PM [facility] HLeSam schmidt MD - 08/20/2019 4:03 PM PST [facility] Hospitalist Progress Note Ángela Crowley is a 89 y.o. female ASSESSMENT and PLAN: Active Hospital Problems Diagnosis Decubitus ulcer of sacral region, stage 2 Heart failure with acute decompensation, type unknown Myocardial infarction type 2 *Other chest pain Melena COPD (chronic obstructive pulmonary disease) S/p TAVR (transcatheter aortic valve replacement), bioprosthetic Resolved Hospital Problems No resolved problems to display. Chest Pain, atypical - Substernal, occurred at rest, resolved over 2-3 hours, no complaints of pain since admiss ion, chest pain is reproducible with palpation - Held aspirin for black tarry stools, aspirin given on ER arrival, no nitro given (patient refused) - No good evidence of ACS, trops 0.01 3 -EKG's again showed peaked T waves, but this is been a finding since July and does not a ppear new -ECHO showed slightly worsening aortic insufficiency and pulmonary hypertension, but no sig nificant changes Melena - History of anemia, hemoglobin is 8.4 on arrival -Started on pantoprazole drip -Discussed with Dr. Boucher, EGD showed no significant lesions or active bleeding -Received a unit of blood, hemoglobin this afternoon is 10.1 - Iron level is low, ferritin within normal range. 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, may need IV iron at times - Give IV iron in the hospital, then restart po iron at discharge COPD, not in acute exacerbation On chronic O2 use at 3L NC, continue oxygen regimen duonebs prn, no acute issues Aortic valve replacement for aortic stenosis in past Stable echo appearance, follow-up with cardiology HTN -hold BB for now -hold lasix, consider restarting tomorrow Depression/Anxiety Continue escitalopram CAD: -Hold aspirin for several days, may need to discuss risk/benefit of continuing aspirin as a n outpatient Stage II sacral decubitus ulcer: -Minor skin breakdown at the gluteal cleft, put pad in place, work on improved nutrition, a nd avoid weight on the area Disposition : Home with son tramaine Jeronimo Prophylaxis: SCD SUBJECTIVE: Complains of some pain over her sacral area, states this is been present for weeks and lorie hs. No active chest pain, although there is some chest pain with palpation on the left side . No acute shortness of breath. No nausea or vomiting. Upset about bed alarm. Nose feels stuffed up, wants nasal spray. VITALS: Temp: 36.3 C (97.4 F), Pulse: 97, Resp: 20, BP: 127/63, SpO2 95 % on nasal cannula Temp Min: 35.5 C (95.9 F) Max: 37 C (98.6 F) Weight: 54.9 kg (121 lb) Intake/Output Summary (Last 24 hours) at 08/20/2019 1604 Last data filed at 08/20/2019 1230 Gross per 24 hour Intake 600 ml Output 2 ml Net 598 ml PHYSICAL EXAM: General: Frail, thin, alert, hard of hearing, no distress, pale Cardiovascular: Regular rate and rhythm, 2 out of 6 systolic murmur, mild tenderness to pal pation of the left chest Respiratory: Clear to auscultation bilaterally, considerably diminished throughout, slight tachypnea Abdomen: Soft, nontender Extremities: Warm and well-perfused without significant edema Ceja catheter present: No DIAGNOSTIC STUDIES: Available data and images were reviewed personally. Significant results and findings are a ddressed here or in the Assessment and Plan. Recent Results (from the past 24 hour(s)) Type and Screen Result Value Ref Range ABO A Rh Type Positive Antibody Screen Negative Extra Green Top Tube Result Value Ref Range Extra Green Top Tube Done Extra Lavender Top Tube Result Value Ref Range Extra Lavender Top Tube Done Iron, Total Result Value Ref Range Iron 25 (L) 50 - 170 ug/dL Ferritin Result Value Ref Range FERRITIN 65 7 - 271 ng/mL Transferrin Result Value Ref Range TRANSFERRIN 170.0 (L) 250.0 - 380.0 mg/dL Red Blood Cells (PRBC) - Crossmatch Result Value Ref Range Product Code P1049I18 UNIT # [id number] [id number] ABO A UNIT RH POS CROSSMATCH INTERP Compatible Unit Status Issued Blood Product ABORh APOS Blood Product Expiration Date and Time [id number] Product Blood Type Barcode 6200 Troponin I Result Value Ref Range Troponin I 0.01 <0.06 ng/mL B Type Natriuretic Peptide Result Value Ref Range BNP 448 (H) <100 pg/mL Hemoglobin and Hematocrit Result Value Ref Range Hematocrit 32.3 (L) 34.0 - 47.0 % Hemoglobin 9.9 (L) 11.5 - 16.0 g/dL Troponin I Result Value Ref Range Troponin I 0.01 <0.06 ng/mL Basic Metabolic Panel Result Value Ref Range Na 145 136 - 145 mmol/L K 3.6 3.4 - 5.1 mmol/L Cl 110 (H) 98 - 107 mmol/L CO2 31 20 - 31 mmol/L Anion Gap 4 3 - 16 mmol/L Glucose 79 60 - 106 mg/dL BUN 21 9 - 23 mg/dL Creatinine 0.64 0.55 - 1.02 mg/dL eGFR if not >60 >=60 mL/min/1.73m2 Calcium 8.3 (L) 8.7 - 10.4 mg/dL BUN/Creatinine Ratio 32.8 CBC no Differential Result Value Ref Range WBC 8.4 4.0 - 11.0 K/uL RBC 3.45 (L) 3.70 - 5.20 M/uL Hemoglobin 9.7 (L) 11.5 - 16.0 g/dL Hematocrit 32.3 (L) 34.0 - 47.0 % MCV 93.6 83.0 - 101.0 fL MCH 28.1 28.0 - 35.0 pg MCHC 30.0 (L) 32.0 - 36.0 g/dL RDW-CV 16.5 (H) <15.0 % RDW-SD 56.3 (H) 35.1 - 46.3 fL Platelet Count 159 140 - 440 K/uL MPV 10.1 6.5 - 12.4 fL % nRBC 0 0 - 2 per 100 WBCs Absolute nRBC 0.00 0.00 - 0.01 K/uL Magnesium Result Value Ref Range Magnesium 1.9 1.6 - 2.6 mg/dL ECG 12 lead Result Value Ref Range VENTRICULAR RATE EKG 87 BPM ATRIAL RATE 87 BPM P-R INTERVAL 122 ms QRS DURATION 92 ms Q-T INTERVAL 334 ms Q-T INTERVAL (CORRECTED) 401 ms P WAVE AXIS 65 degrees QRS AXIS 58 degrees T AXIS 73 degrees INTERPRETATION TEXT Lead V5 cannot be interpreted Normal sinus rhythm Prominent/peaked T waves consider hyperkalemia or hyperacute T waves of ischemia When compared with ECG of 19-AUG-2019 14:08, (Unconfirmed) Voltage criteria for left ventricular hypertrophy is no longer present ST elevations are no longer present in inferolateral leads Confirmed by UMESH JOSEPH, LEONIDAS ([id number]) on 08/20/2019 6:47:02 AM Hemoglobin and Hematocrit Result Value Ref Range Hematocrit 34.1 34.0 - 47.0 % Hemoglobin 10.3 (L) 11.5 - 16.0 g/dL Extra Green Top Tube Result Value Ref Range Extra Green Top Tube Done ECHO Complete Result Value Ref Range Patient Weight (lbs) 128 lbs Patient Height 5'5 LVIDd 3.22 cm FS 26 % LA volume 104.98 mL Ascending aorta 3.39 cm AV regurgitation pressure 1/2 time 315.67 msec AV mean gradient 14.7 mmHg MV mean gradient 5.07 mmHg IVRT 93.43 msec LVOT peak magalie 114.09 cm/s LVOT peak VTI 25.54 cm AV peak magalie 277.03 cm/s AV VTI 52.18 cm MR max magalie 588.7 cm/s AV peak gradient 30.7 mmHg MV peak gradient 12.03 mmHg LA Volume Index 64 mL/m2 AV LVOT Peak Gradient 5.21 mmHg AV LVOT Mean Gradient 2.42 mmHg TR Peak Gradient 53 mmHg TR Velocity 363.66 cm LV Diastolic Length 4C 8.37 cm LV Schulz's Biplane EF 64 % LV ED Volume (Schulz's) 62.22 ml LV ED Volume Index 38 ml/m2 LV ES Volume 22.63 ml LVOT Mean Velocity 71.81 cm/s MV Deceleration [place] 489.87 cm/s2 MV Deceleration Time 274.63 msec MV E/A Ratio 0.8 MV Mean Velocity 106.99 cm/s MV Peak A-Wave 168.88 cm/s MV Peak E-Wave 134.53 cm/s AV Deceleration [place] 319.97 cm/s2 AV Deceleration Time 1,088.5 msec AV Mean Velocity 177.64 cm/s LA Area 26.5 cm2 LA Major 0.5218 cm LV ES Volume Index 14 ml/m2 IVS Diastolic Thickness MM 1.23 cm LVPW Diastolic Thickness MM 1.15 cm IVS Systolic Thickness MM 1.41 cm LV Systolic Diameter MM 2.38 cm LVPW Systolic Thickness MM 1.57 cm LA Systolic Diameter MM 5.6 cm TAPSE 2.1 cm LVEF-TTE TRANSTHORACIC ECHO 65 % RA PRESSURE 8 mmHg RVSP Estimated 61 mmHg Hemoglobin and Hematocrit Result Value Ref Range Hematocrit 33.0 (L) 34.0 - 47.0 % Hemoglobin 10.1 (L) 11.5 - 16.0 g/dL Extra Green Top Tube Result Value Ref Range Extra Green Top Tube Done Xr Chest Ap Portable Result Date: 08/19/2019 CLINICAL INFORMATION: CHEST PRESSURE. COMPARISON: 07/20/2019. FINDINGS: Portable frontal ch est radiograph Lungs: No focal airspace disease, pleural effusion, or pneumothorax. Hyperexp ansion of the lungs. Heart/mediastinum: Cardiac silhouette is of normal size. Central pulmon [place] vasculature has a normal appearance. Prominent aortic calcifications. Valvuloplasty maier ges are noted. Bones: No acute osseous abnormality appreciated. No acute cardiopulmonary disease. Hyperexpansion compatible with obstructive pulmonary dise ase. Dictated and Signed by: John Groves MD Electronically signed: 08/19/2019 2:56 PM acetaminophen, 650 mg, Oral, Q4H PRN albuterol-ipratropium, 3 mL, Nebulization, RT Q6H albuterol-ipratropium, 3 mL, Nebulization, RT Q6H PRN aluminum & magnesium hydroxide-simethicone, 30 mL, Oral, Q4H PRN atorvaSTATin, 20 mg, Oral, QAM budesonide, 0.5 mg, Nebulization, RT BID docusate sodium, 100 mg, Oral, BID PRN escitalopram, 5 mg, Oral, Daily fluticasone, 2 spray, Each Nare, Daily HYDROcodone-acetaminophen, 1 tablet, Oral, Q8H PRN nitroglycerin, 0.4 mg, Sublingual, Q5 Min PRN ondansetron, 4 mg, Intravenous, Q6H PRN pantoprazole, 40 mg, Oral, BID AC predniSONE, 10 mg, Oral, Daily sodium chloride, 2 spray, Each Nare, Q1H PRN Total time of approximately 25 minutes was spent with the patient and/or patient's family, and/or on the patient's floor/unit, of which more than 50% was spent counseling and/or coord ination the patient's care as outlined above. Sam Valladares MD 08/20/2019 4:04 PM [facility] documented in this encounter Plan of Treatment +--------+ + + + + | Date | Type | Specialty | Care Team | Description | +--------+ + + + + | 03/23/ | Office | Anticoagulation | García Harris, | | | 2019 | Visit | | [address] | | | | | | [place] | | | | | | [id number] | | | | | | | | +--------+ + + + + | 04/11/ | Appointment | Radiology | Shawn Michael | | | 2019 | | | MD [address] | | | | | | [address] [place] | | | | | | [place], [place] [id number] | | | | | | [phone] | | | | | | | | +--------+ + + + + | 04/13/ | Office | Cardiology | Shawn Michael | | | 2019 | Visit | | MD [address] | | | | | | [address] [place] | | | | | | [place], [place] [id number] | | | | | | [phone] | | | | | | | | +--------+ + + + + + +------+--------+ + + | Name | Type | Priori | Associated Diagnoses | Date/Time | | | | ty | | | + +------+--------+ + + | ED INFORMATION | MICHAEL | Routin | | 08/19/2019 1:37 PM | | EXCHANGE | | e | | PST | + +------+--------+ + + + + +--------+ + + | Name | Type | Priori | Associated Diagnoses | Order Schedule | | | | ty | | | + + +--------+ + + | Referral to Home | Outpatient | Routin | Coronary artery | Ordered: 08/26/2019 | | Health - OUTPATIENT | Referral | e | disease involving | | | | | | [place] coronary | | | | | | artery of [place] | | | | | | heart without angina | | | | | | pectoris S/p TAVR | | | | | | (transcatheter | | | | | | aortic valve | | | | | | replacement), | | | | | | bioprosthetic | | | | | | Panlobular emphysema | | | | | | ([facility]) Uses walker | | | | | | Impaired mobility | | + + +--------+ + + documented as of this encounter Procedures + +--------+ + + + | Procedure Name | Priori | Date/Time | Associated Diagnosis | Comments | | | ty | | | | + +--------+ + + + | CBC WITH | Routin | 08/25/2019 | | Results for this | | DIFFERENTIAL | e | 5:36 AM | | procedure are in the | | | | PST | | results section. | + +--------+ + + + | BASIC METABOLIC | Routin | 08/25/2019 | | Results for this | | PANEL | e | 5:36 AM | | procedure are in the | | | | PST | | results section. | + +--------+ + + + | CBC WITH | Routin | 08/24/2019 | | Results for this | | DIFFERENTIAL | e | 4:38 AM | | procedure are in the | | | | PST | | results section. | + +--------+ + + + | BASIC METABOLIC | Routin | 08/24/2019 | | Results for this | | PANEL | e | 4:38 AM | | procedure are in the | | | | PST | | results section. | + +--------+ + + + | CBC WITH | Routin | 08/23/2019 | | Results for this | | DIFFERENTIAL | e | 5:49 AM | | procedure are in the | | | | PST | | results section. | + +--------+ + + + | BASIC METABOLIC | Routin | 08/23/2019 | | Results for this | | PANEL | e | 5:49 AM | | procedure are in the | | | | PST | | results section. | + +--------+ + + + | CBC WITH | STAT | 08/22/2019 | | Results for this | | DIFFERENTIAL | | 6:07 AM | | procedure are in the | | | | PST | | results section. | + +--------+ + + + | MAGNESIUM | STAT | 08/22/2019 | | Results for this | | | | 6:07 AM | | procedure are in the | | | | PST | | results section. | + +--------+ + + + | BASIC METABOLIC | STAT | 08/22/2019 | | Results for this | | PANEL | | 6:07 AM | | procedure are in the | | | | PST | | results section. | + +--------+ + + + | CLOSTRIDIOIDES | Routin | 08/22/2019 | | Results for this | | DIFFICILE NAAT | e | 1:06 AM | | procedure are in the | | REFLEX | | PST | | results section. | + +--------+ + + + | CLOSTRIDIOIDES | Routin | 08/22/2019 | | Results for this | | DIFFICILE NAAT | e | 1:06 AM | | procedure are in the | | REFLEX TO TOX AG | | PST | | results section. | + +--------+ + + + | CBC WITH | Routin | 08/21/2019 | | Results for this | | DIFFERENTIAL | e | 1:59 PM | | procedure are in the | | | | PST | | results section. | + +--------+ + + + | BASIC METABOLIC | Routin | 08/21/2019 | | Results for this | | PANEL | e | 1:59 PM | | procedure are in the | | | | PST | | results section. | + +--------+ + + + | URINALYSIS WITH | Routin | 08/21/2019 | | Results for this | | MICROSCOPIC WITH | e | 1:57 PM | | procedure are in the | | CULTURE IF INDICATED | | PST | | results section. | + +--------+ + + + | CULTURE, URINE | Routin | 08/21/2019 | | Results for this | | | e | 1:57 PM | | procedure are in the | | | | PST | | results section. | + +--------+ + + + | CT ABDOMEN PELVIS W | Routin | 08/21/2019 | | Results for this | | CONTRAST | e | 11:51 AM | | procedure are in the | | | | PST | | results section. | + +--------+ + + + | CULTURE, BLOOD | Routin | 08/21/2019 | | Results for this | | | e | 10:14 AM | | procedure are in the | | | | PST | | results section. | + +--------+ + + + | CULTURE, BLOOD | Routin | 08/21/2019 | | Results for this | | | e | 9:27 AM | | procedure are in the | | | | PST | | results section. | + +--------+ + + + | CBC WITH | Routin | 08/21/2019 | | Results for this | | DIFFERENTIAL | e | 4:58 AM | | procedure are in the | | | | PST | | results section. | + +--------+ + + + | BASIC METABOLIC | Routin | 08/21/2019 | | Results for this | | PANEL | e | 4:58 AM | | procedure are in the | | | | PST | | results section. | + +--------+ + + + | EXTRA GREEN TOP TUBE | Routin | 08/20/2019 | | Results for this | | | e | 2:15 PM | | procedure are in the | | | | PST | | results section. | + +--------+ + + + | HEMOGLOBIN AND | Routin | 08/20/2019 | | Results for this | | HEMATOCRIT | e | 2:12 PM | | procedure are in the | | | | PST | | results section. | + +--------+ + + + | ECHO COMPLETE | Routin | 08/20/2019 | | Results for this | | | e | 10:05 AM | | procedure are in the | | | | PST | | results section. | + +--------+ + + + | EXTRA GREEN TOP TUBE | Routin | 08/20/2019 | | Results for this | | | e | 9:02 AM | | procedure are in the | | | | PST | | results section. | + +--------+ + + + | HEMOGLOBIN AND | Routin | 08/20/2019 | | Results for this | | HEMATOCRIT | e | 9:02 AM | | procedure are in the | | | | PST | | results section. | + +--------+ + + + | EGD | | 08/20/2019 | Anemia, | | | | | 7:36 AM | unspecified type | | | | | PST | Melena | | + +--------+ + + + | *TERMED* MI UPPER GI | Routin | 08/20/2019 | | Results for this | | ENDOSCOPY,EXAM | e | 7:23 AM | | procedure are in the | | | | PST | | results section. | + +--------+ + + + | ECG 12 LEAD | Routin | 08/20/2019 | | Results for this | | | e | 5:47 AM | | procedure are in the | | | | PST | | results section. | + +--------+ + + + | TROPONIN I | Routin | 08/20/2019 | | Results for this | | | e | 2:34 AM | | procedure are in the | | | | PST | | results section. | + +--------+ + + + | CBC NO DIFFERENTIAL | Routin | 08/20/2019 | | Results for this | | | e | 2:34 AM | | procedure are in the | | | | PST | | results section. | + +--------+ + + + | MAGNESIUM | Routin | 08/20/2019 | | Results for this | | | e | 2:34 AM | | procedure are in the | | | | PST | | results section. | + +--------+ + + + | BASIC METABOLIC | Routin | 08/20/2019 | | Results for this | | PANEL | e | 2:34 AM | | procedure are in the | | | | PST | | results section. | + +--------+ + + + | HEMOGLOBIN AND | Routin | 08/19/2019 | | Results for this | | HEMATOCRIT | e | 10:12 PM | | procedure are in the | | | | PST | | results section. | + +--------+ + + + | TROPONIN I | Routin | 08/19/2019 | | Results for this | | | e | 9:34 PM | | procedure are in the | | | | PST | | results section. | + +--------+ + + + | B TYPE NATRIURETIC | Routin | 08/19/2019 | | Results for this | | PEPTIDE | e | 9:34 PM | | procedure are in the | | | | PST | | results section. | + +--------+ + + + | TRANSFUSE 1 UNIT RED | Routin | 08/19/2019 | | | | BLOOD CELLS | e | 8:30 PM | | | | | | PST | | | + +--------+ + + + | PRODUCT: RBC | STAT | 08/19/2019 | | Results for this | | | | 6:15 PM | | procedure are in the | | | | PST | | results section. | + +--------+ + + + | EXTRA LAVENDER TOP | Routin | 08/19/2019 | | Results for this | | TUBE | e | 4:45 PM | | procedure are in the | | | | PST | | results section. | + +--------+ + + + | EXTRA GREEN TOP TUBE | Routin | 08/19/2019 | | Results for this | | | e | 4:45 PM | | procedure are in the | | | | PST | | results section. | + +--------+ + + + | TRANSFERRIN | Add-On | 08/19/2019 | | Results for this | | | | 4:45 PM | | procedure are in the | | | | PST | | results section. | + +--------+ + + + | IRON, TOTAL | Add-On | 08/19/2019 | | Results for this | | | | 4:45 PM | | procedure are in the | | | | PST | | results section. | + +--------+ + + + | FERRITIN | Add-On | 08/19/2019 | | Results for this | | | | 4:45 PM | | procedure are in the | | | | PST | | results section. | + +--------+ + + + | TYPE AND SCREEN | STAT | 08/19/2019 | | Results for this | | | | 4:44 PM | | procedure are in the | | | | PST | | results section. | + +--------+ + + + | TROPONIN I | STAT | 08/19/2019 | | Results for this | | | | 2:21 PM | | procedure are in the | | | | PST | | results section. | + +--------+ + + + | RETIC COUNT | Add-On | 08/19/2019 | | Results for this | | | | 2:21 PM | | procedure are in the | | | | PST | | results section. | + +--------+ + + + | CBC WITH | STAT | 08/19/2019 | | Results for this | | DIFFERENTIAL | | 2:21 PM | | procedure are in the | | | | PST | | results section. | + +--------+ + + + | COMPREHENSIVE | STAT | 08/19/2019 | | Results for this | | METABOLIC PANEL | | 2:21 PM | | procedure are in the | | | | PST | | results section. | + +--------+ + + + | ECG 12 LEAD | STAT | 08/19/2019 | | Results for this | | | | 2:08 PM | | procedure are in the | | | | PST | | results section. | + +--------+ + + + | XR CHEST AP PORTABLE | STAT | 08/19/2019 | | Results for this | | | | 1:57 PM | | procedure are in the | | | | PST | | results section. | + +--------+ + + + documented in this encounter Results Basic Metabolic Panel (08/25/2019 5:36 AM PST) + + + + + [...] | | | | | | [facility] | | | | | | [facility] | | | | | | [facility] - | | | | | | LABORATORY | | + + + + + + | Glucose | 75 | 60 - 106 mg/dL | [facility] | | | | | [facility] | | | | | | [facility] | | | | | | [facility] - | | | | | | LABORATORY | | + + + + + + | BUN | 18 | 9 - 23 mg/dL | [facility] | | | | | | [facility] | | | | | | [facility] | | | | | | [facility] - | | | | | | LABORATORY | | + + + + + + | Creatinine | 0.73 | 0.55 - 1.02 | [facility] | | | | | mg/dL | [facility] | | | | | | [facility] | | | | | | CENTER - | | | | | | LABORATORY | | + + + + + + | eGFR if not | >60Comment: GLOMERULAR | >=60 | [facility] | | | | FILTRATION | mL/min/1.73m2 | [facility] | | | [facility]AR[place] | RATE,ESTIMATED | | MEDICAL | | | | mL/min/1.89h3Asar than | | CENTER - | | [...] + + + + | BUN/Creatin | 24.7 | | [facility] | | | ine [...] + | [facility] | [address] | [place] | [phone] | | [facility] | | [address] | | | - LABORATORY | | | | + + + + + CBC with Differential (08/25/2019 5:36 AM PST) + + + + + + | Component | Value | Ref Range | Performed | Pathologist | | | | | At | Signature | + + + + + + | WBC | 5.9 | 4.0 - 11.0 K/uL | [facility] | [facility] | | [facility] | | | | [facility] | [facility] | | | | | | CENTER - | | | | | | LABORATORY | | + + + + + + | RBC | 3.44 (L) | 3.70 - 5.20 | [facility] [...] + + + + | Hematocrit | 32.1 (L) | 34.0 - 47.0 % | [facility] | | | | | [facility] | | | | | | [facility] | | | | | | CENTER - | | | | | | LABORATORY | | + + + + + + | MCV | 93.3 | 83.0 - 101.0 fL | [facility] [...] + + + + | RDW-SD | 52.5 (H) | 35.1 - 46.3 fL | [...] + + + + | % | 62.3 | 45.0 - 82.0 % | [facility] | | | Neutrophils | | | [facility] | | | | | | MEDICAL | | | | | | CENTER - | | | | | | LABORATORY | | + + + + + + | % | 20.4 | 20.0 - 45.0 % | [facility] | | | Lymphocytes | | | [facility] | | | | | | MEDICAL | | | | | | CENTER - | | | | | | LABORATORY | | + + + + + + | % Monocytes | 14.8 (H) | 4.0 - 12.0 % | [facility] | | | | | | [facility] | | | | | | MEDICAL | | | | | | CENTER - | | | | | | LABORATORY | | + + + + + + | % | 1.4 | 0.0 - 5.0 % | [facility] [...] + + + | % Immature | 0.9 (H)Comment: | 0.0 - 0.4 % | [...] + + + + | Absolute | 3.66 | 1.80 - 8.50 | [facility] | | | Neutrophils | | K/uL | [facility] | | | | | | MEDICAL | | | | | | CENTER - | | | | | | LABORATORY | | + + + + + + | Absolute | 1.20 | 0.60 - 3.20 | [facility] | | | Lymphocytes | | K/uL | [facility] | | | | | | MEDICAL | | | | | | CENTER - | | | | | | LABORATORY | | + + + + + + | Absolute | 0.87 | 0.00 - 1.00 | [facility] | [...] [address] | [place] | [phone] | | [facility] | | [address] | | | - LABORATORY | | | | + + + + + Basic Metabolic Panel (08/24/2019 4:38 AM PST) + + + + + [...] + + + + | Glucose | 76 | 60 - 106 mg/dL | [facility] | | | | | | [facility] | | | | | | MEDICAL | | | | | | CENTER - | | | | | | LABORATORY | | + + + + + + | BUN | 13 | 9 - 23 mg/dL | [facility] | | | | | | [facility] | | | | | | MEDICAL | | | | | | CENTER - | | | | | | LABORATORY | | + + + + + + | Creatinine | 0.65 | 0.55 - 1.02 | [facility] | | | | | mg/dL | [facility] | | | | | | MEDICAL | | | | | | CENTER - | | | | | | LABORATORY | | + + + + + + | eGFR if not | >60Comment: GLOMERULAR | >=60 | [facility] | | | | FILTRATION | mL/min/1.73m2 | [facility] | | | BELARUSIAN | RATE,ESTIMATED | | MEDICAL | | | | mL/min/1.93q9Uljw than | | CENTER - | | [...] | | | | | mg/dL | [facility] | | | | | | MEDICAL | | | | | | CENTER - | | | | | | LABORATORY | | + + + + + + | BUN/Creatin | 20.0 | | [facility] | | | ine [...] [address] | [place] | [phone] | | [facility] | | [address] | | | - LABORATORY | | | | + + + + + CBC with Differential (08/24/2019 4:38 AM PST) + + + + + + | Component | Value | Ref Range | Performed | Pathologist | | | | | At | Signature | + + + + + + | WBC | 6.9 | 4.0 - 11.0 K/uL | [facility] | | | | | | [facility] | | | | | | MEDICAL | | | | | | CENTER - | | | | | | LABORATORY | | + + + + + + | RBC | 3.43 (L) | 3.70 - 5.20 | [facility] | | | | | M/uL | [facility] | | | | | | MEDICAL | | | | | | CENTER - | | | | | | LABORATORY | | + + + + + + | Hemoglobin | 9.8 (L) | 11.5 - 16.0 | [facility] | | | | | g/dL | [facility] | | | | | | MEDICAL | | | | | | CENTER - | | | | | | LABORATORY | | + + + + + + | Hematocrit | 31.4 (L) | 34.0 - 47.0 % | [facility] | | | | | | [facility] | | | | | | MEDICAL | | | | | | CENTER - | | | | | | LABORATORY | | + + + + + + | MCV | 91.5 | 83.0 - 101.0 fL | [facility] [...] + + + + | MCHC | 31.2 (L) | 32.0 - 36.0 | [facility] [...] + + + + | Platelet | 148 | 140 - 440 K/uL | [facility] [...] + + + + | Immature | 1.8Comment: Low PLT + | 0.9 - 11.2 [...] + + + + | % | 68.1 | 45.0 - 82.0 % | [facility] | | | Neutrophils | | | [facility] | | | | | | MEDICAL | | | | | | CENTER - | | | | | | LABORATORY | | + + + + + + | % | 14.7 (L) | 20.0 - 45.0 % | [...] + + + + | % | 1.9 | 0.0 - 5.0 % | [facility] [...] + + + + | Absolute | 4.68 | 1.80 - 8.50 | [facility] | | | Neutrophils | | K/uL | [facility] | | | | | | MEDICAL | | | | | | CENTER - | | | | | | LABORATORY | | + + + + + + | Absolute | 1.01 | 0.60 - 3.20 | [facility] | | | Lymphocytes | | K/uL | [facility] | | | | | | MEDICAL | | | | | | CENTER - | | | | | | LABORATORY | | + + + + + + | Absolute | 0.98 | 0.00 - 1.00 | [facility] | [...] [address] | [place] | [phone] | | [facility] | | [address] | | | - LABORATORY | | | | + + + + + Basic Metabolic Panel (08/23/2019 5:49 AM PST) + + + + + [...] + + + + | BUN | 11 | 9 - 23 mg/dL | [facility] | | | | | | [facility] | | | | | | MEDICAL | | | | | | CENTER - | | | | | | LABORATORY | | + + + + + + | Creatinine | 0.67 | 0.55 - 1.02 | [facility] | | | | | mg/dL | [facility] | | | | | | MEDICAL | | | | | | CENTER - | | | | | | LABORATORY | | + + + + + + | eGFR if not | >60Comment: GLOMERULAR | >=60 | [facility] | | | | FILTRATION | mL/min/1.73m2 | [facility] | | | BELAR[place]IAN | RATE,ESTIMATED | | MEDICAL | | | | mL/min/1.94b9Dvjg than | | CENTER - | | [...] + + + + | BUN/Creatin | 16.4 | | [facility] | | | ine [...] + | [facility] | [address] | [place] | [phone] | | [facility] | | [address] | | | - LABORATORY | | | | + + + + + CBC with Differential (08/23/2019 5:49 AM PST) + + + + + + | Component | Value | Ref Range | Performed | Pathologist | | | | | At | Signature | + + + + + + | WBC | 6.1 | 4.0 - 11.0 K/uL | [facility] [...] + + + + | Hematocrit | 30.2 (L) | 34.0 - 47.0 % | [...] | | | | | | [facility] | | | | | | MEDICAL | | | | | | CENTER - | | | | | | LABORATORY | | + + + + + + | RDW-SD | 55.1 (H) | 35.1 - 46.3 fL | [...] + + + + | % | 70.0 | 45.0 - 82.0 % | [facility] | | | Neutrophils | | | [facility] | | | | | | MEDICAL | | | | | | CENTER - | | | | | | LABORATORY | | + + + + + + | % | 13.9 (L) | 20.0 - 45.0 % | [facility] | | | Lymphocytes | | | [facility] | | | | | | MEDICAL | | | | | | CENTER - | | | | | | LABORATORY | | + + + + + + | % Monocytes | 13.4 (H) | 4.0 - 12.0 % | [facility] | | | | | | [facility] | | | | | | MEDICAL | | | | | | CENTER - | | | | | | LABORATORY | | + + + + + + | % | 2.1 | 0.0 - 5.0 % | [facility] [...] + + + + | Absolute | 4.28 | 1.80 - 8.50 | [facility] | | | Neutrophils | | K/uL | [facility] | | | | | | MEDICAL | | | | | | CENTER - | | | | | | LABORATORY | | + + + + + + | Absolute | 0.85 | 0.60 - 3.20 | [facility] | [...] | [address] | [place], [place] | [phone] | | [facility] | | [address] | | | - LABORATORY | | | | + + + + + Magnesium (08/22/2019 6:07 AM PST) + +-------+ + + + [...] [address] | [place] | [phone] | | [facility] | | [address] | | | - LABORATORY | | | | + + + + + Basic Metabolic Panel (08/22/2019 6:07 AM PST) + + + + + [...] + + + + | Glucose | 76 | 60 - 106 mg/dL | [facility] | | | | | | [facility] | | | | | | MEDICAL | | | | | | CENTER - | | | | | | LABORATORY | | + + + + + + | BUN | 13 | 9 - 23 mg/dL | [facility] | | | | | | [facility] | | | | | | MEDICAL | | | | | | CENTER - | | | | | | LABORATORY | | + + + + + + | Creatinine | 0.63 | 0.55 - 1.02 | [facility] | [...] | | FILTRATION | mL/min/1.73m2 | [facility] | | | BELAR[place]IAN | RATE,ESTIMATED | | MEDICAL | | | | mL/min/1.17t5Uiim than | | CENTER - | | [...] + + + + | BUN/Creatin | 20.6 | | [facility] | | | ine [...] [address] | [place] | [phone] | | [facility] | | [address] | | | - LABORATORY | | | | + + + + + CBC with Differential (08/22/2019 6:07 AM PST) + + + + + + | Component | Value | Ref Range | Performed | Pathologist | | | | | At | Signature | + + + + + + | WBC | 8.9 | 4.0 - 11.0 K/uL | [facility] | | | | | | [facility] | | | | | | MEDICAL | | | | | | CENTER - | | | | | | LABORATORY | | + + + + + + | RBC | 3.40 (L) | 3.70 - 5.20 | [facility] [...] + + + + | Hematocrit | 32.1 (L) | 34.0 - 47.0 % | [...] + + + + | MCH | 28.5 | 28.0 - 35.0 pg | [facility] [...] + + + + | RDW-CV | 16.3 (H) | <15.0 % | [facility] | [...] + + + + | % | 80.4 | 45.0 - 82.0 % | [facility] | | | Neutrophils | | | [facility] | | | | | | MEDICAL | | | | | | CENTER - | | | | | | LABORATORY | | + + + + + + | % | 8.3 (L) | 20.0 - 45.0 % | [facility] | | | Lymphocytes | | | [facility] | | | | | | MEDICAL | | | | | | CENTER - | | | | | | LABORATORY | | + + + + + + | % Monocytes | 10.0 | 4.0 - 12.0 % | [facility] [...] + + + + | Absolute | 7.13 | 1.80 - 8.50 | [facility] | | | Neutrophils | | K/uL | [facility] | | | | | | MEDICAL | | | | | | CENTER - | | | | | | LABORATORY | | + + + + + + | Absolute | 0.74 | 0.60 - 3.20 | [facility] | | | Lymphocytes | | K/uL | [facility] | | | | | | MEDICAL | | | | | | CENTER - | | | | | | LABORATORY | | + + + + + + | Absolute | 0.89 | 0.00 - 1.00 | [facility] | [...] [address] | [place] | [phone] | | [facility] | | [address] | | | - LABORATORY | | | | + + + + + Clostridioides difficile NAAT Reflex (08/22/2019 1:06 AM PST) + + + + + + | Component | Value | Ref Range | Performed | Pathologist | | | | | At | Signature | + + + + + + | C. | NegativeComment: No | Negative | [facility] | | | difficile, | Toxigenic C. difficile | | [facility] | | | Interp | detected. Consider [...] | | difficile, | | | [facility] | | | NAAT | | | [...] | [address] | [place] | [phone] | | [facility] | | [address] | | | - LABORATORY | | | | + + + + + CBC with Differential (08/21/2019 1:59 PM PST) + + + + + + | Component | Value | Ref Range | Performed | Pathologist | | | | | At | Signature | + + + + + + | WBC | 14.8 (H) | 4.0 - 11.0 K/uL | [facility] | | | | | | [facility] | | | | | | MEDICAL | | | | | | CENTER - | | | | | | LABORATORY | | + + + + + + | RBC | 3.83 | 3.70 - 5.20 | [facility] | | | | | M/uL | [facility] | | | | | | MEDICAL | | | | | | CENTER - | | | | | | LABORATORY | | + + + + + + | Hemoglobin | 10.8 (L) | 11.5 - 16.0 | [facility] [...] + + + + | MCV | 92.4 | 83.0 - 101.0 fL | [facility] | | | | | | [facility] | | | | | | MEDICAL | | | | | | CENTER - | | | | | | LABORATORY | | + + + + + + | MCH | 28.2 | 28.0 - 35.0 pg | [facility] [...] + + + + | RDW-CV | 16.5 (H) | <15.0 % | [facility] | [...] + + + + | Platelet | 195 | 140 - 440 K/uL | [facility] [...] + + + + | % | 77.9 | 45.0 - 82.0 % | [facility] | | | Neutrophils | | | [facility] | | | | | | MEDICAL | | | | | | CENTER - | | | | | | LABORATORY | | + + + + + + | % | 9.6 (L) | 20.0 - 45.0 % | [facility] | | | Lymphocytes | | | [facility] | | | | | | MEDICAL | | | | | | CENTER - | | | | | | LABORATORY | | + + + + + + | % Monocytes | 11.4 | 4.0 - 12.0 % | [facility] [...] + + + + | Absolute | 11.52 (H) | 1.80 - 8.50 | [facility] | | | Neutrophils | | K/uL | [facility] | | | | | | MEDICAL | | | | | | CENTER - | | | | | | LABORATORY | | + + + + + + | Absolute | 1.42 | 0.60 - 3.20 | [facility] | | | Lymphocytes | | K/uL | [facility] | | | | | | MEDICAL | | | | | | CENTER - | | | | | | LABORATORY | | + + + + + + | Absolute | 1.68 (H) | 0.00 - 1.00 | [facility] [...] | | nRBC | | K/uL | [facility] | | [...] [address] | [place] | [phone] | | [facility] | | [address] | | | - LABORATORY | | | | + + + + + Basic Metabolic Panel (08/21/2019 1:59 PM PST) + + + + + [...] + + + + | Glucose | 100 | 60 - 106 mg/dL | [facility] | | | | | | [facility] | | | | | | MEDICAL | | | | | | CENTER - | | | | | | LABORATORY | | + + + + + + | BUN | 13 | 9 - 23 mg/dL | [facility] | | | | | | [facility] | | | | | | MEDICAL | | | | | | CENTER - | | | | | | LABORATORY | | + + + + + + | Creatinine | 0.67 | 0.55 - 1.02 | [facility] | | | | | mg/dL | [facility] | | | | | | MEDICAL | | | | | | CENTER - | | | | | | LABORATORY | | + + + + + + | eGFR if not | >60Comment: GLOMERULAR | >=60 | [facility] | | | | FILTRATION | mL/min/1.73m2 | [facility] | | | BELAR[place]IAN | RATE,ESTIMATED | | MEDICAL | | | | mL/min/1.26l9Etdi than | | CENTER - | | [...] + + + + | BUN/Creatin | 19.4 | | [facility] | | | ine Ratio | | | [facility] | | [...] + | [facility] | [address] | [place] Patel | [phone] | | [facility] | | [address] | | | - LABORATORY | | | | + + + + + Culture, Urine (08/21/2019 1:57 PM PST) + + + + + + | Component | Value | Ref Range | Performed | Pathologist | | | | | At | Signature | + + + + + + | Culture | >100,000 CFU/ml | | [facility] | | | | Enterococcus | | [facility] | | | | faeciumComment: For | | MEDICAL | | | [...] + + + + | Culture | 15,000 CFU/ml | | [facility] | | | | Escherichia coli | | [facility] | | | [...] | + + +--------+ + | Enterococcus faecium | Ampicillin | | <=2 ug/mL: | | | | | Sensitive | + + +--------+ + | Enterococcus faecium | Ciprofloxacin | | 2 ug/mL: | | | | | Intermediate | + + +--------+ + | Enterococcus faecium | Levofloxacin | | 4 ug/mL: | | | | | Intermediate | + + +--------+ + | Enterococcus faecium | Nitrofurantoin | | 64 ug/mL: | | | | | Intermediate | + + +--------+ + | Enterococcus faecium | Penicillin G | | 0.25 ug/mL: | | | | | Sensitive | + + +--------+ + | Enterococcus faecium | Vancomycin | | <=0.5 ug/mL: | | | | | Sensitive | + + +--------+ + | Escherichia coli | Cefazolin | | <=4 ug/mL: | | | | | Sensitive | + + +--------+ + | Escherichia coli | Cefoxitin | | 8 ug/mL: Sensitive | + [...] [address] | PRASH[place] Patel | [phone] | | [facility] | | [address] | | | - LABORATORY | | | | + + + + + Urinalysis with Microscopic with Culture if Indicated (08/21/2019 1:57 PM PST) + + + + + [...] + + + + | Specific | 1.029 | 1.001 - 1.030 | [facility] | | | [place], | | | [facility] | | [...] | [address] | [place], [place] | [phone] | | [facility] | | [address] | | | - LABORATORY | | | | + + + + + CT Abdomen Pelvis w Contrast (08/21/2019 11:51 AM PST) + + | Specimen | + + | | + + + + + | Impressions | Performed At | + + + | 1. PERSISTENT OR RECURRENT SOMEWHAT ECCENTRIC WALL THICKENING IN | [facility] | | THE RECTOSIGMOID REGION COMPARED WITH IMAGING OF JUNE 04, POSSIBLY | | | A REFLECTION OF DIVERTICULITIS ALTHOUGH THE PRESENCE OF A COLONIC | | | MASS CANNOT BE EXCLUDED AND ENDOSCOPIC FOLLOW-UP SHOULD BE STRONGLY | | | CONSIDERED. A SMALL GAS-FILLED OUTPOUCHING IS NOW APPARENT ALONG | | | THE POSTERIOR MARGIN OF THE BOWEL IN THIS REGION AND COULD REFLECT | | | CONTAINED PERFORATION OR SINUS OF UNCERTAIN ACUITY. NO FREE | | | INTRAPERITONEAL AIR OR FLUID COLLECTION IS APPARENT. 2. SLIGHT | | | PROGRESSION OF GENERALIZED BILIARY DUCTAL DILATION AND PERSISTENT | | | DILATION OF THE MAIN PANCREATIC DUCT WITHOUT A VISIBLE MECHANICAL | | | CAUSE FOR OBSTRUCTION. CLINICAL AND LABORATORY CORRELATION AND | | | CONSIDERATION FOR MRCP OR ERCP IS ADVISED. 3. BRONCHIAL WALL | | | THICKENING AND CLUSTERED NODULARITY IN THE IMAGED LOWER LUNGS WITH A | | | MORE CONSOLIDATIVE REGION AGAIN APPARENT IN THE RIGHT COSTOPHRENIC | | | SULCUS, FAVORING SEQUELA OF CHRONIC SMALL AIRWAYS CENTERED INFECTION | | | OR INFLAMMATION. 4. EXTENSIVE VASCULAR CALCIFICATION WITH MILD | | | ANEURYSMAL DILATION OF THE DISTAL AORTA. Dictated and Signed by: | | | Sivakumar Ramon MD Electronically signed: 08/21/2019 12:45 PM | | + + + + + + | Narrative | Performed At | + + + | ENHANCED CT ABDOMEN AND PELVIS 08/21/2019 11:31 AM CLINICAL | [facility] | | HISTORY: Abdominal pain, acute, nonlocalized COMPARISON: | | | CT June 04 and more remote imaging TECHNIQUE: Axial images are | | | performed through the abdomen and pelvis following the uneventful | | | intravenous administration of 75 mL Omnipaque 350 contrast. | | | Coronal and sagittal reformations are also performed. ABDOMEN | | | FINDINGS: An aortic valve prosthesis is again partially imaged. | | | Coronary arterial calcification is present. There is minimal right | | | pleural fluid, with more pronounced bronchial wall thickening and | | | clustered nodularity in the imaged lower lungs. A consolidative | | | component is again suggested in the posterior right costophrenic | | | sulcus. The gallbladder is surgically absent. Prominent, | | | generalized biliary ductal dilation persists and appears slightly | | | increased from imaging of June 04, with the common duct measuring up | | | to approximately 23 mm in diameter proximally and 13 mm more | | | distally near the pancreatic head. Dilation of the main pancreatic | | | duct up to a diameter of approximately 7 mm also persists. No | | | mechanical cause for obstruction is identified. There is | | | generalized pancreatic atrophy. The liver demonstrates a similar | | | 1.5 cm high attenuation, likely enhancing lesion in the far inferior, | | | posterior right hepatic lobe, which is chronic and favors a | | | hemangioma or other benign lesion. Spleen and adrenal glands are | | | unremarkable. There are similar small hypodensities within and | | | arising from both kidneys, consistent with cysts. No | | | nephroureterolithiasis or hydroureteronephrosis is evident. There | | | is persistent or recurrent wall thickening in the rectosigmoid region, | | | somewhat more eccentric in appearance compared with previous | | | imaging, with extensive diverticulosis again apparent in this region | | | and extending into the descending colon. Stranding of the | | | perirectal and pericolonic fat is again apparent. In addition, a | | | blind-ending small caliber gas containing outpouching is now evident | | | along the posterior margin of the bowel near the rectosigmoid | | | junction. No free air or organized fluid collection is evident. | | | There is minimal free fluid in the right paracolic gutter. No | | | pathologic lymph node enlargement or hernia is evident. There is | | | extensive aortoiliac calcification with mild aneurysmal dilation of | | | the distal aorta to a diameter of 3.2 cm. Noncalcified plaque | | | eccentrically in the immediate infrarenal aorta again mild to | | | moderately narrows vessel caliber. Calcified plaque is again visible | | | at the origins of several visceral aortic branches. Solid osseous | | | fusion and changes of posterior decompression are again apparent at | | | the lumbosacral junction, in the setting of chronic anterolisthesis. | | | Degenerative disc disease, anterolisthesis and central canal and | | | foraminal stenosis are again apparent immediately above this level as | | | well. PELVIS FINDINGS: The uterus is absent and the ovaries are | | | not identified. The bladder is unremarkable. No pathologic lymph | | | node enlargement or hernia is evident. There are degenerative | | | changes of the hips and pubic symphysis. | | + + + + + | Procedure Note | + + | Kobe, Rad Results In - 08/21/2019 12:[address] ABDOMEN AND PELVIS | | 08/21/2019 11:31 AM CLINICAL HISTORY: Abdominal pain, acute, nonlocalized | | COMPARISON: CT June 04 and more remote imaging TECHNIQUE: Axial images are performed | | through the abdomen and pelvis followingthe uneventful intravenous administration of 75 | | mL Omnipaque 350 contrast. Coronal and sagittal reformations are also performed. | | ABDOMEN FINDINGS: An aortic valve prosthesis is again partially imaged. Coronary | | arterial calcification is present. There is minimal right pleuralfluid, with more | | pronounced bronchial wall thickening and clustered nodularityin the imaged lower lungs. | | A consolidative component is again suggested in theposterior right costophrenic sulcus. | | The gallbladder is surgically absent. Prominent, generalized biliary ductal dilation | | persists and appears slightlyincreased from imaging of June 04, with the common duct | | measuring up toapproximately 23 mm in diameter proximally and 13 mm more distally near | | thepancreatic head. Dilation of the main pancreatic duct up to a diameter | | ofapproximately 7 mm also persists. No mechanical cause for obstruction isidentified. | | There is generalized pancreatic atrophy. The liver demonstrates asimilar 1.5 cm high | | attenuation, likely enhancing lesion in the far inferior,posterior right hepatic lobe, | | which is chronic and favors a hemangioma or otherbenign lesion. Spleen and adrenal | | glands are unremarkable. There are similarsmall hypodensities within and arising from | | both kidneys, consistent with cysts. No nephroureterolithiasis or hydroureteronephrosis | | is evident.There is persistent or recurrent wall thickening in the rectosigmoid | | region,somewhat more eccentric in appearance compared with previous imaging, | | withextensive diverticulosis again apparent in this region and extending into | | thedescending colon. Stranding of the perirectal and pericolonic fat is againapparent. | | In addition, a blind-ending small caliber gas containing outpouchingis now evident | | along the posterior margin of the bowel near the rectosigmoidjunction. No free air or | | organized fluid collection is evident. There isminimal free fluid in the right | | paracolic gutter. No pathologic lymph nodeenlargement or hernia is evident. There is | | extensive aortoiliac calcificationwith mild aneurysmal dilation of the distal aorta to a | | diameter of 3.2 cm. Noncalcified plaque eccentrically in the immediate infrarenal aorta | | again mildto moderately narrows vessel caliber. Calcified plaque is again visible at | | theorigins of several visceral aortic branches. Solid osseous fusion and changesof | | posterior decompression are again apparent at the lumbosacral junction, inthe setting of | | chronic anterolisthesis. Degenerative disc disease,anterolisthesis and central canal | | and foraminal stenosis are again apparentimmediately above this level as well. PELVIS | | FINDINGS: The uterus is absent and the ovaries are not identified. Thebladder is | | unremarkable. No pathologic lymph node enlargement or hernia isevident. There are | | degenerative changes of the hips and pubic symphysis. IMPRESSION: 1. PERSISTENT OR | | RECURRENT SOMEWHAT ECCENTRIC WALL THICKENING IN THERECTOSIGMOID REGION COMPARED WITH | | IMAGING OF JUNE 04, POSSIBLY A REFLECTION OFDIVERTICULITIS ALTHOUGH THE PRESENCE OF A | | COLONIC MASS CANNOT BE EXCLUDED ANDENDOSCOPIC FOLLOW-UP SHOULD BE STRONGLY CONSIDERED. | | A SMALL GAS-FILLEDOUTPOUCHING IS NOW APPARENT ALONG THE POSTERIOR MARGIN OF THE BOWEL IN | | THISREGION AND COULD REFLECT CONTAINED PERFORATION OR SINUS OF UNCERTAIN ACUITY. | | NOFREE INTRAPERITONEAL AIR OR FLUID COLLECTION IS APPARENT.2. SLIGHT PROGRESSION OF | | GENERALIZED BILIARY DUCTAL DILATION AND PERSISTENTDILATION OF THE MAIN PANCREATIC DUCT | | WITHOUT A VISIBLE MECHANICAL CAUSE FOROBSTRUCTION. CLINICAL AND LABORATORY CORRELATION | | AND CONSIDERATION FOR MRCP ORERCP IS ADVISED.3. BRONCHIAL WALL THICKENING AND CLUSTERED | | NODULARITY IN THE IMAGED LOWER LUNGSWITH A MORE CONSOLIDATIVE REGION AGAIN APPARENT IN | | THE RIGHT COSTOPHRENICSULCUS, FAVORING SEQUELA OF CHRONIC SMALL AIRWAYS CENTERED | | INFECTION ORINFLAMMATION.4. EXTENSIVE VASCULAR CALCIFICATION WITH MILD ANEURYSMAL | | DILATION OF THE DISTALAORTA.Dictated and Signed by: Sivakumar Ramon MD Electronically | | signed: 08/21/2019 12:45 PM | |RECTOSIGMOID REGION COMPARED WITH IMAGING OF JUNE 04, POSSIBLY A REFLECTION OF | |DIVERTICULITIS ALTHOUGH THE PRESENCE OF A COLONIC MASS CANNOT BE EXCLUDED AND | |ENDOSCOPIC FOLLOW-UP SHOULD BE STRONGLY CONSIDERED. A SMALL GAS-FILLED | |OUTPOUCHING IS NOW APPARENT ALONG THE POSTERIOR MARGIN OF THE BOWEL IN THIS | |REGION AND COULD REFLECT CONTAINED PERFORATION OR SINUS OF UNCERTAIN ACUITY. NO | |FREE INTRAPERITONEAL AIR OR FLUID COLLECTION IS APPARENT. | | | |2. SLIGHT PROGRESSION OF GENERALIZED BILIARY DUCTAL DILATION AND PERSISTENT | |DILATION OF THE MAIN PANCREATIC DUCT WITHOUT A VISIBLE MECHANICAL CAUSE FOR | |OBSTRUCTION. CLINICAL AND LABORATORY CORRELATION AND CONSIDERATION FOR MRCP OR | |ERCP IS ADVISED. | | | |3. BRONCHIAL WALL THICKENING AND CLUSTERED NODULARITY IN THE IMAGED LOWER LUNGS | |WITH A MORE CONSOLIDATIVE REGION AGAIN APPARENT IN THE RIGHT COSTOPHRENIC | |SULCUS, FAVORING SEQUELA OF CHRONIC SMALL AIRWAYS CENTERED INFECTION OR | |INFLAMMATION. | | | |4. EXTENSIVE VASCULAR CALCIFICATION WITH MILD ANEURYSMAL DILATION OF THE DISTAL | |AORTA. | | | |Dictated and Signed by: Sivakumar Ramon MD | | Electronically signed: 08/21/2019 12:45 PM | + + + +---------+ + + | Performing | Address | City/State/Zipcode | Phone Number | | Organization | | | | + +---------+ + + | [facility] | | | | + +---------+ + + Culture, Blood (08/21/2019 10:14 AM PST) + + + + + [...] [address] | [place] | [phone] | | [facility] | | [address] | | | - LABORATORY | | | | + + + + + Culture, Blood (08/21/2019 9:27 AM PST) + + + + + [...] [address] | [place] | [phone] | | [facility] | | [address] | | | - LABORATORY | | | | + + + + + CBC with Differential (08/21/2019 4:58 AM PST) + + + + [...] + + + + | RBC | 3.92 | 3.70 - 5.20 | [facility] | [...] + + + + | Hematocrit | 36.5 | 34.0 - 47.0 % | [facility] | | | | | | [facility] | | | | | | [facility]ICAL | | | | | | CENTER - | | | | | | LABORATORY | | + + + + + + | MCV | 93.1 | 83.0 - 101.0 fL | [facility] [...] + + + + | RDW-CV | 16.4 (H) | <15.0 % | [facility] | [...] + + + + | % | 79.5 | 45.0 - 82.0 % | [facility] | | | Neutrophils | | | [facility] | | | | | | MEDICAL | | | | | | CENTER - | | | | | | LABORATORY | | + + + + + + | % | 9.0 (L) | 20.0 - 45.0 % | [facility] | | | Lymphocytes | | | [facility] | | | | | | MEDICAL | | | | | | CENTER - | | | | | | LABORATORY | | + + + + + + | % Monocytes | 10.4 | 4.0 - 12.0 % | [facility] [...] + + + + | Absolute | 10.83 (H) | 1.80 - 8.50 | [facility] [...] + + + + | Absolute | 1.42 (H) | 0.00 - 1.00 | [facility] | | | Monocytes | | K/uL | [facility] | | | | | | MEDICAL | | | | | | CENTER - | | | | | | LABORATORY | | + + + + + + | Absolute | 0.07 | 0.00 - 0.40 | [facility] | [...] + | [facility] | [address] | [place] | [phone] | | [facility] | | [address] | | | - LABORATORY | | | | + + + + + Basic Metabolic Panel (08/21/2019 4:58 AM PST) + + + + [...] + + + + | Glucose | 104 | 60 - 106 mg/dL | [facility] | | | | | [facility] | | | | | | MEDICAL | | | | | | CENTER - | | | | | | LABORATORY | | + + + + + + | BUN | 15 | 9 - 23 mg/dL | [facility] | | | | | | [facility] | | | | | | [facility] | | | | | | CENTER - | | | | | | LABORATORY | | + + + + + + | Creatinine | 0.76 | 0.55 - 1.02 | [facility] | [...] mL/min/1.73m2 | [facility] | | | [facility] | RATE,ESTIMATED | | MEDICAL | | | | mL/min/1.85u0Owjf than | | CENTER - | | [...] + + + + | BUN/Creatin | 19.7 | | [facility] | | | ine [...] | [address] | [place], [place] | [phone] | | [facility] | | [address] | | | - LABORATORY | | | | + + + + + Extra Green Top Tube (08/20/2019 2:15 PM PST) + +-------+ + + + [...] [address] | [place] | [phone] | | [facility] | | [address] | | | - LABORATORY | | | | + + + + + Hemoglobin and Hematocrit (08/20/2019 2:12 PM PST) + + + + + + | Component | Value | Ref Range | Performed | Pathologist | | | | | At | Signature | + + + + + + | Hematocrit | 33.0 (L) | 34.0 - 47.0 % | [facility] | [facility] | | [facility] | | | | | | MEDICAL | | | | | | CENTER - | | | | | | LABORATORY | | + + + + + + | Hemoglobin | 10.1 (L) | 11.5 - 16.0 | [facility] [...] [address] | [place] | [phone] | | [facility] | | [address] | | | - LABORATORY | | | | + + + + + ECHO Complete (08/20/2019 10:05 AM PST) + +---------+ + + + | Component | Value | Ref Range | Performed | Pathologist | | | | | At | Signature | + +---------+ + + + | Patient | 128 lbs | | [facility] | | | Weight | | | | | | (lbs) | | | | | + +---------+ + + + | Patient | 5'5 | | [facility] | | | Height | | | | | + +---------+ + + + | LVIDd | 3.22 | cm | [facility] | | + +---------+ + + + | FS | 26 | % | [facility] | | + +---------+ + + + | LA volume | 104.98 | mL | [facility] | | + +---------+ + + + | Ascending | 3.39 | cm | [facility] | | | aorta | | | | | + +---------+ + + + | AV | 315.67 | msec | [facility] | | | regurgitati | | | | | | on pressure | | | | | | 1/2 time | | | | | + +---------+ + + + | AV mean | 14.7 | mmHg | [facility] | | | gradient | | | | | + +---------+ + + + | MV mean | 5.07 | mmHg | [facility] | | | gradient | | | | | + +---------+ + + + | IVRT | 93.43 | msec | [facility] | | + +---------+ + + + | LVOT peak | 114.09 | cm/s | [facility] | | | magalie | | | | | + +---------+ + + + | LVOT peak | 25.54 | cm | [facility] | | | VTI | | | | | + +---------+ + + + | AV peak magalie | 277.03 | cm/s | [facility] | | + +---------+ + + + | AV VTI | 52.18 | cm | [facility] | | + +---------+ + + + | MR max magalie | 588.7 | cm/s | [facility] | | + +---------+ + + + | AV peak | 30.7 | mmHg | [facility] | | | gradient | | | | | + +---------+ + + + | MV peak | 12.03 | mmHg | [facility] | | | gradient | | | | | + +---------+ + + + | LA Volume | 64 | mL/m2 | [facility] | | | Index | | | | | + +---------+ + + + | AV LVOT | 5.21 | mmHg | [facility] | | | Peak | | | | | | Gradient | | | | | + +---------+ + + + | AV LVOT | 2.42 | mmHg | [facility] | | | Mean | | | | | | Gradient | | | | | + +---------+ + + + | TR Peak | 53 | mmHg | [facility] | | | Gradient | | | | | + +---------+ + + + | TR Velocity | 363.66 | cm | [facility] | | + +---------+ + + + | LV | 8.37 | cm | [facility] | | | Diastolic | | | | | | Length 4C | | | | | + +---------+ + + + | LV | 64 | % | [facility] | | | Schulz's | | | | | | Biplane EF | | | | | + +---------+ + + + | LV ED | 62.22 | ml | [facility] | | | Volume | | | | | | (Schulz's) | | | | | + +---------+ + + + | LV ED | 38 | ml/m2 | [facility] | | | Volume | | | | | | Index | | | | | + +---------+ + + + | LV ES | 22.63 | ml | [facility] | | | Volume | | | | | + +---------+ + + + | LVOT Mean | 71.81 | cm/s | [facility] | | | Velocity | | | | | + +---------+ + + + | MV | 489.87 | cm/s2 | [facility] | | | Deceleratio | | | | | | n Ble[place]ley | | | | | + +---------+ + + + | MV | 274.63 | msec | [facility] | | | Deceleratio | | | | | | n Time | | | | | + +---------+ + + + | MV E/A | 0.8 | | [facility] | | | Ratio | | | | | + +---------+ + + + | MV Mean | 106.99 | cm/s | [facility] | | | Velocity | | | | | + +---------+ + + + | MV Peak | 168.88 | cm/s | [facility] | | | A-Wave | | | | | + +---------+ + + + | MV Peak | 134.53 | cm/s | [facility] | | | E-Wave | | | | | + +---------+ + + + | AV | 319.97 | cm/s2 | [facility] | | | Deceleratio | | | | | | n [place] | | | | | + +---------+ + + + | AV | 1,088.5 | msec | [facility] | | | Deceleratio | | | | | | n Time | | | | | + +---------+ + + + | AV Mean | 177.64 | cm/s | [facility] | | | Velocity | | | | | + +---------+ + + + | LA Area | 26.5 | cm2 | [facility] | | + +---------+ + + + | LA Major | 0.5218 | cm | [facility] | | + +---------+ + + + | LV ES | 14 | ml/m2 | [facility] | | | Volume | | | | | | Index | | | | | + +---------+ + + + | IVS | 1.23 | cm | [facility] | | | Diastolic | | | | | | Thickness | | | | | | MM | | | | | + +---------+ + + + | LVPW | 1.15 | cm | [facility] | | | Diastolic | | | | | | Thickness | | | | | | MM | | | | | + +---------+ + + + | IVS | 1.41 | cm | [facility] | | | Systolic | | | | | | Thickness | | | | | | MM | | | | | + +---------+ + + + | LV Systolic | 2.38 | cm | [facility] | | | Diameter | | | | | | MM | | | | | + +---------+ + + + | LVPW | 1.57 | cm | [facility] | | | Systolic | | | | | | Thickness | | | | | | MM | | | | | + +---------+ + + + | LA Systolic | 5.6 | cm | [facility] | | | Diameter | | | | | | MM | | | | | + +---------+ + + + | TAPSE | 2.1 | cm | [facility] | | + +---------+ + + + | LVEF-TTE | 65 | % | [facility] | | | TRANSTHORAC | | | | | | IC ECHO | | | | | + +---------+ + + + | RA PRESSURE | 8 | mmHg | [facility] | | + +---------+ + + + | RVSP | 61 | mmHg | [facility] | | | Estimated | | | | | + +---------+ + + + + + | Specimen | + + | | + + + + | Addenda | + + | Addendum by Clint Jovel MD on 08/20/2019 12:58 PM 1. Moderate biatrial | | dilatation. 2. Normal left ventricular size with a mild concentric left ventricular | | hypertrophy. Left ventricular systolic function is preserved. LVEF is 60 to 65%. | | 3. Grade 1 left ventricular diastolic dysfunction. 4. Evidence of a TAVR with | | slight increased velocity across aortic valve of 2.7 m/s, peak gradient of 30 mmHg, | | mean gradient of 15 mmHg. 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 5. 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 There is a mild calcific mitral valve stenosis. There is also a | | mild to central aortic valve insufficiency. 6. Mild to central tricuspid valve | | regurgitation. 7. Moderate pulmonary hypertension with a peak systolic pressure of 60 | | to 65 mmHg. 8. Dilated IVC with a normal respiratory collapse. 9. When | | compared to echocardiography on 06/01/2019, perivalvular aortic valve insufficiency | | seems to be slightly worsened. Pulmonary pretension is also worsened. | + + + + + | Narrative | Performed At | + + + | | | + + + + +---------+ + + | Performing | Address | City/State/Zipcode | Phone Number | | Organization | | | | + +---------+ + + | [facility] | | | | + +---------+ + + Extra Green Top Tube (08/20/2019 9:02 AM PST) + +-------+ + + + [...] + | [facility] | [address] | [place] | [phone] | | [facility] | | [address] | | | - LABORATORY | | | | + + + + + Hemoglobin and Hematocrit (08/20/2019 9:02 AM PST) + + + + + + | Component | Value | Ref Range | Performed | Pathologist | | | | | At | Signature | + + + + + + | Hematocrit | 34.1 | 34.0 - 47.0 % | [facility] | | | | | [facility] | | | | | | MEDICAL | | | | | | CENTER - | | | | | | LABORATORY | | + + + + + + | Hemoglobin | 10.3 (L) | 11.5 - 16.0 | [facility] | | | | | g/dL | [facility] | | | | | [...] [address] | [place] | [phone] | | [facility] | | [address] | | | - LABORATORY | | | | + + + + + EGD (08/20/2019 7:23 AM PST) + + | Specimen | + + | | + + + + ----+ | Narrative | Performed At | + + ----+ | [facility] | [facility] | | [facility]Patient Name: Ángela Crowley | [facility] | | JoanneProcedure Date: 08/20/2019 7:23 AMMRN: [id number] | | | Number: [id number] of : 1930Note Status: | | | FinalizedAttending MD: JOHN BOUCHER , MDProcedure Type: | | | Upper GI endoscopyIndications: Iron deficiency | | | anemia secondary to chronic blood | | | loss, MelenaReferring MD: Dalton Bar | | | MD Nikolay (Referring MD), hCace | | | Pati Higuera (Referring )Medicines: | | | Monitored Anesthesia CareComplications: No immediate | | | complications.Procedure: Pre-Anesthesia Assessment: - | | | Prior [...] by | | | the physician, the nurse and the anesthesiologist in the | | | pre-procedure area in the procedure room. Mental Status | | | Examination: alert and oriented. Airway Examination: Mallampati | | | Class II (the uvula but not tonsillar pillars visualized). | | | Respiratory Examination: clear to auscultation. CV Examination: | | | normal. Prophylactic Antibiotics: The patient does not require | | | prophylactic antibiotics. Prior Anticoagulants: The patient | | | has taken no previous anticoagulant or antiplatelet agents. ASA | | | Grade Assessment: IV - A patient with severe systemic disease | | | that is a constant threat to life. After reviewing the risks | | | and benefits, the patient was deemed in satisfactory condition to | | | undergo the procedure. The anesthesia plan was to use monitored | | | anesthesia care (MAC). Immediately prior to administration of | | | medications, the patient was re-assessed for adequacy to receive | | | sedatives. The heart rate, respiratory rate, oxygen saturations, | | | blood pressure, adequacy of pulmonary ventilation, and | | | response to care were monitored throughout the procedure. The | | | physical status of the patient was re-assessed after the | | | procedure. After obtaining informed consent, the endoscope was | | | passed under direct vision. Throughout the procedure, the | | | patient's blood pressure, pulse, and oxygen saturations were | | | monitored continuously. The Endoscope was introduced through | | | the mouth, and advanced to the second part of duodenum. The | | | upper GI endoscopy was accomplished without difficulty. The | | | patient tolerated the procedure well.Estimated Blood Loss: | | | Estimated blood loss: none.Findings: The examined esophagus | | | was normal. Diffuse mildly erythematous mucosa without bleeding | | | was found in the gastric body and in the gastric antrum. | | | A single 5 mm mucosal papule (nodule) with no bleeding and no stigmata | | | of recent bleeding was found in the prepyloric region of the | | | stomach. The cardia and gastric fundus were normal on | | | retroflexion. The duodenal bulb and second portion of the | | | duodenum were normal.Impression: - Normal esophagus. - | | | Erythematous mucosa in the gastric body and antrum. - 3 cm | | | hiatal hernia. - A single mucosal papule (nodule) found in the | | | stomach. - Normal duodenal bulb and second portion of the | | | duodenum. - No specimens collected. - There is no evidence | | | of upper GI bleeding.Recommendation: - Return patient to | | | hospital delong for ongoing care. - Advance diet as tolerated. | | | - Due to age and comorbidities, I advise against further endoscopic | | | evaluations. She has chronic iron deficiency anemia. She has a | | | high likelihood of small bowel AVMs given her history of | | | aortic stenosis. In this setting I recommend IV iron therapy. | | | This is likely necessary on a fci basis, to match ongoing | | | chronic bleeding.JOHN BOUCHER MD08/20/2019 7:58:49 AMThis | | | report has been signed electronically.Note Initiated On: 08/20/2019 | | | 7:23 AMNumber of Addenda: 0 [facility] | | | - Advance diet as tolerated. | | | - Due to age and comorbidities, I advise against further endoscopic | | | evaluations. She has chronic iron deficiency anemia. She has a high | | | likelihood of small bowel AVMs given her history of aortic stenosis. In | | | this setting I recommend IV iron therapy. This is likely necessary on a | | | intermission coordinator basis, to match ongoing chronic bleeding. | | |JOHN BOUCHER MD | | |08/20/2019 7:58:49 AM | | |This report has been signed electronically. | | |Note Initiated On: 08/20/2019 7:23 AM | | |Number of Addenda: 0 | | | [facility] | | + + ----+ + +---------+ + + | Performing | Address | City/State/Zipcode | Phone Number | | Organization | | | | + +---------+ + + | [facility] | | | | + +---------+ + + ECG 12 lead (08/20/2019 5:47 AM PST) + + + + + [...] + + + + | QRS | 92 | ms | [facility] | | | DURATION | | | | | + + + + + + | Q-T | 334 | ms | [facility] | | | INTERVAL | | | | | + + + + + + | Q-T | 401 | ms | [facility] | | [...] + + + | INTERPRETAT | Lead V5 cannot be | | [facility] | | | ION TEXT | interpreted Normal sinus | | | | | | rhythmProminent/peaked | | | | | | T waves consider | | | | | | hyperkalemia or | | | | | | hyperacute T waves of | | | | | | ischemiaWhen compared | | | | | | with ECG of 19-AUG-2019 | | | | | | 14:08, | | | | | | (Unconfirmed)Voltage | | | | | | criteria for left | | | | | | ventricular hypertrophy | | | | | | is no longer presentST | | | | | | elevations are no longer | | | | | | present in | | | | | | inferolateral | | | | | | leadsConfirmed by | | | | | | LEONIDAS CALVO MD ([id number]) | | | | | | on 08/20/2019 6:47:02 AM | | | | | | [...] | + +---------+ + + Troponin I (08/20/2019 2:34 AM PST) + + + + + [...] | | | | | | [employer] | | | | [...] [address] | [place] | [phone] | | [facility] | | [address] | | | - LABORATORY | | | | + + + + + Magnesium (08/20/2019 2:34 AM PST) + +-------+ + + + | Component | Value | Ref Range | Performed | Pathologist | | | | | At | Signature | + +-------+ + + + | Magnesium | 1.9 | 1.6 - 2.6 mg/dL | [facility] | | | | | | [facility] | | | | | | [...] + | [facility] | [address] | [place] | [phone] | | [facility] | | [address] | | | - LABORATORY | | | | + + + + + CBC no Differential (08/20/2019 2:34 AM PST) + + + + + + | Component | Value | Ref Range | Performed | Pathologist | | | | | At | Signature | + + + + + + | WBC | 8.4 | 4.0 - 11.0 K/uL | [facility] | | | | | | [facility] | | | | | | [facility] | | | | | | C[facility] - | | | | | | LABORATORY | | + + + + + + | RBC | 3.45 (L) | 3.70 - 5.20 | [facility] [...] + + + + | Hematocrit | 32.3 (L) | 34.0 - 47.0 % | [facility] | [facility] | | [facility] | | | | | | MEDICAL | | | | | | CENTER - | | | | | | LABORATORY | | + + + + + + | MCV | 93.6 | 83.0 - 101.0 fL | [facility] | | | | | [facility] | | | | | | MEDICAL | | | | | | CENTER - | | | | | | LABORATORY | | + + + + + + | MCH | 28.1 | 28.0 - 35.0 pg | [facility] [...] + + + + | RDW-CV | 16.5 (H) | <15.0 % | [facility] | | | | | [facility] | | | | | | MEDICAL | | | | | | CENTER - | | | | | | LABORATORY | | + + + + + + | RDW-SD | 56.3 (H) | 35.1 - 46.3 fL | [facility] | | | | | | [facility] | | | | | | MEDICAL | | | | | | CENTER - | | | | | | LABORATORY | | + + + + + + | Platelet | 159 | 140 - 440 K/uL | [facility] | | | Count | | | [facility] | | [...] [address] | [place] | [phone] | | [facility] | | [address] | | | - LABORATORY | | | | + + + + + Basic Metabolic Panel (08/20/2019 2:34 AM PST) + + + + + [...] + + + + | Creatinine | 0.64 | 0.55 - 1.02 | [facility] | | | | | mg/dL | [facility] | | | | | | MEDICAL | | | | | | CENTER - | | | | | | LABORATORY | | + + + + + + | eGFR if not | >60Comment: GLOMERULAR | >=60 | [facility] | | | | FILTRATION | mL/min/1.73m2 | [facility] | | | [facility] | RATE,ESTIMATED | | MEDICAL | | | | mL/min/1.51j6Hytw than | | CENTER - | | [...] + + + + | BUN/Creatin | 32.8 | | [facility] | | | ine [...] [address] | [place] | [phone] | | [facility] | | [address] | | | - LABORATORY | | | | + + + + + Hemoglobin and Hematocrit (08/19/2019 10:12 PM PST) + + + + + + | Component | Value | Ref Range | Performed | Pathologist | | | | | At | Signature | + + + + + + | Hematocrit | 32.3 (L) | 34.0 - 47.0 % | [facility] | | | | | | [facility] | | | | | | [...] [address] | [place] | [phone] | | [facility] | | [address] | | | - LABORATORY | | | | + + + + + B Type Natriuretic Peptide (08/19/2019 9:34 PM PST) + +---------+ + + + | Component | Value | Ref Range | Performed | Pathologist | | | | | At | Signature | + +---------+ + + + | BNP | 448 (H) | <100 pg/mL | [facility] | [...] [facility] | [place] | [phone] | | [facility] | | [address] | | | - LABORATORY | | | | + + + + + Troponin I (08/19/2019 9:34 PM PST) + + + + + [...] | | | | | | [employer] | | | | [...] + | [facility] | [address] | [place] | [phone] | | [facility] | | [address] | | | - LABORATORY | | | | + + + + + Red Blood Cells (PRBC) - Crossmatch (08/19/2019 6:15 PM PST) + + + + + + | Component | Value | Ref Range | Performed | Pathologist | | | | | At | Signature | + + + + + + | Product | [id number] | | [facility] | | | Code | | | [facility] | | | | | | MEDICAL | | | | | | CENTER - | | | | | | BLOOD BANK | | + + + + + + | UNIT # | [id number] | | [facility] | | | | | [...] + + + + | Blood | [id number] | | [facility] | | | Product | | | [facility] | | | Expiration | | | MEDICAL | | | Date and | | | CENTER - | | | Time | | | BLOOD BANK | | + + + + + + | Product | 6[address] | | [facility] | | | Blood Type | | | [facility] | | | Barcode | | [...] St | [place] | | | [facility] | | [address] | | | - BLOOD BANK | | | | + + + + + Transferrin (08/19/2019 4:45 PM PST) + + + + + + | Component | Value | Ref Range | Performed | Pathologist | | | | | At | Signature | + + + + + + | TRANSFERRIN | 170.0 (L) | 250.0 - 380.0 | [facility] | | | | | mg/dL | [facility] | | | | | | MEDICAL [...] | [address] | [place] | [phone] | | [facility] | | [address] | | | - LABORATORY | | | | + + + + + Ferritin (08/19/2019 4:45 PM PST) + +-------+ + + + | Component | Value | Ref Range | Performed | Pathologist | | | | | At | Signature | + +-------+ + + + | FERRITIN | 65 | 7 - 271 ng/mL | [facility] [...] [address] | [place] | [phone] | | [facility] | | [address] | | | - LABORATORY | | | | + + + + + Iron, Total (08/19/2019 4:45 PM PST) + +--------+ + + + | Component | Value | Ref Range | Performed | Pathologist | | | | | At | Signature | + +--------+ + + + | Iron | 25 (L) | 50 - 170 ug/dL | [facility] | | | | | | [facility] | | | | | | MEDICAL | | | | | | CENTER - | | | | | | LABORATORY | | + +--------+ + + + + + | Specimen | + + | Blood | + + + + + + + | Performing | Address | City/State/Zipcode | Phone Number | | Organization | | | | + + + + + | [facility] | [address] | [place] | [phone] | | [facility] | | [address] | | | - LABORATORY | | | | + + + + + Extra Lavender Top Tube (08/19/2019 4:45 PM PST) + +-------+ + + + [...] | [address] | [place], [place] | [phone] | | [facility] | | [address] | | | - LABORATORY | | | | + + + + + Extra Green Top Tube (08/19/2019 4:45 PM PST) + +-------+ + + + [...] [address] | [place] | [phone] | | [facility] | | [address] | | | - LABORATORY | | | | + + + + + Type and Screen (08/19/2019 4:44 PM PST) + + + + + [...] St | [place] | | | [facility] | | [address] | | | - BLOOD BANK | | | | + + + + + Retic Count (08/19/2019 2:21 PM PST) + + + + + + | Component | Value | Ref Range | Performed | Pathologist | | | | | At | Signature | + + + + + + | % | 1.9 (H) | 0.5 - 1.5 % | [facility] | | | Reticulocyt | | | [facility] | | | e Count | | | MEDICAL | | | | | | CENTER - | | | | | | LABORATORY | | + + + + + + | Absolute | 0.0556 | 0.0164 - 0.0776 | [facility] | | | Reticulocyt | | M/uL | [facility] | | | e Count | | | MEDICAL | | | | | | CENTER - | | | | | | LABORATORY | | + + + + + + | Immature | 9.8Comment: Values above | 2.3 - 15.9 % | [facility] | | | Reticulocyt | normal range indicate | | [facility] | | | e Fraction | an increase in RBC | | MEDICAL | | | | production in the bone | | CENTER - | | | | marrow. | | LABORATORY | | + + + + + + | Reticulocyt | 29.4Comment: Values | 29.0 - 38.0 pg | [...] [address] | [place] | [phone] | | [facility] | | [address] | | | - LABORATORY | | | | + + + + + Troponin I (08/19/2019 2:21 PM PST) + + + + + [...] | | | | | | [employer] | | | | [...] [address] | [place] | [phone] | | [facility] | | [address] | | | - LABORATORY | | | | + + + + + Comprehensive Metabolic Panel (08/19/2019 2:21 PM PST) + + + + + [...] + + + + | K | 3.2 (L) | 3.4 - 5.1 | [facility] [...] + + + + | Glucose | 195 (H) | 60 - 106 mg/dL | [...] + + + + | Creatinine | 0.76 | 0.55 - 1.02 | [facility] | [...] mL/min/1.73m2 | [facility] | | | [facility] | RATE,ESTIMATED | | MEDICAL | | | | mL/min/1.72y0Lwkb than | | CENTER - | | [...] + + + + | Albumin | 3.0 (L) | 3.2 - 4.8 g/dL | [...] + + + + | ALT | 17 | 10 - 49 U/L | [facility] | | | | | | [facility] | | | | | | MEDICAL | | | | | | CENTER - | | | | | | LABORATORY | | + + + + + + | Alkaline | 182 (H) | 46 - 116 U/L | [...] + + + + | BUN/Creatin | 35.5 | | [facility] | | | ine [...] [address] | [place] | [phone] | | [facility] | | [address] | | | - LABORATORY | | | | + + + + + CBC with Differential (08/19/2019 2:21 PM PST) + + + + + + | Component | Value | Ref Range | Performed | Pathologist | | | | | At | Signature | + + + + + + | WBC | 10.1 | 4.0 - 11.0 K/uL | [facility] [...] + + + + | RDW-SD | 54.6 (H) | 35.1 - 46.3 fL | [...] + + + + | % | 93.4 (H) | 45.0 - 82.0 % | [facility] | | | Neutrophils | | | [facility] | | | | | | MEDICAL | | | | | | CENTER - | | | | | | LABORATORY | | + + + + + + | % | 3.5 (L) | 20.0 - 45.0 % | [facility] | | | Lymphocytes | | | [facility] | | | | | | MEDICAL | | | | | | CENTER - | | | | | | LABORATORY | | + + + + + + | % Monocytes | 2.6 (L) | 4.0 - 12.0 % | [...] + + + + | Absolute | 9.46 (H) | 1.80 - 8.50 | [facility] | | | Neutrophils | | K/uL | [facility] | | | | | | MEDICAL | | | | | | CENTER - | | | | | | LABORATORY | | + + + + + + | Absolute | 0.35 (L) | 0.60 - 3.20 | [facility] | | | Lymphocytes | | K/uL | [facility] | | | | | | MEDICAL | | | | | | CENTER - | | | | | | LABORATORY | | + + + + + + | Absolute | 0.26 | 0.00 - 1.00 | [facility] | [...] + | [facility] | [address] | [place] | [phone] | | [facility] | | [address] | | | - LABORATORY | | | | + + + + + ECG 12 lead (08/19/2019 2:08 PM PST) + + + + + + | Component | Value | Ref Range | Performed | Pathologist | | | | | At | Signature | + + + + + + | VENTRICULAR | 92 | BPM | [facility] | | | RATE EKG | | | | | + + + + + + | ATRIAL RATE | 92 | BPM | [facility] | | + + + + + + | P-R | 132 | ms | [facility] | | | INTERVAL | | | | | + + + + + + | QRS | 88 | ms | [facility] | | | DURATION | | | | | + + + + + + | Q-T | 332 | ms | [facility] | | | INTERVAL | | | | | + + + + + + | Q-T | 410 | ms | [facility] | | | INTERVAL | | | | | | (CORRECTED) | | | | | + + + + + + | P WAVE AXIS | 57 | degrees | [facility] | | + + + + + + | QRS AXIS | 49 | degrees | [facility] | | + + + + + + | T AXIS | 70 | degrees | [facility] | | + + + + + + | INTERPRETAT | Normal sinus rhythmLeft | | [facility] | | | ION TEXT | ventricular | | | | | | hypertrophyProminent/pea | | | | | | ked T waves which may be | | | | | | secondary to LVH, | | | | | | hyperkalemia or | | | | | | hyperacute T waves of | | | | | | ischemiaST elevations in | | | | | | leads V3-6 and inferior | | | | | | leads which may be | | | | | | secondary to LVH, early | | | | | | repolarization or | | | | | | ischemia/ACS.infarctionW | | | | | | hen compared with ECG of | | | | | | 20-JUL-2019 08:20,ST | | | | | | elevations in leads V3-6 | | | | | | are new finding ST | | | | | | elevations in inferior | | | | | | leads are more | | | | | | prominentConfirmed by | | | | | | LEONIDAS CALVO MD ([id number]) | | | | | | on 08/20/2019 5:50:04 AM | | | | | | [...] +---------+ + + XR Chest AP Portable (08/19/2019 1:57 PM PST) + + | Specimen | + + | | + + + + + | Impressions | Performed At | + + + | No acute cardiopulmonary disease. Hyperexpansion compatible | [facility] | | with obstructive pulmonary disease. Dictated and Signed by: | | | John Groves MD Electronically signed: 08/19/2019 2:56 PM | | + + + + + + | Narrative | Performed At | + + + | CLINICAL INFORMATION: CHEST PRESSURE. COMPARISON: 07/20/2019. | [facility] | | FINDINGS: Portable frontal chest radiograph Lungs: No focal | | | airspace disease, pleural effusion, or pneumothorax. Hyperexpansion | | | of the lungs. Heart/mediastinum: Cardiac silhouette is of normal | | | size. Central pulmonary vasculature has a normal appearance. | | | Prominent aortic calcifications. Valvuloplasty changes are noted. | | | Bones: No acute osseous abnormality appreciated. | | + + + + + | Procedure Note | + + | Kobe, Rad Results In - 08/19/2019 2:59 PM PST | | CLINICAL INFORMATION: CHEST PRESSURE. | | | | COMPARISON: 07/20/2019. | | | | FINDINGS: | | Portable frontal chest radiograph | | | | Lungs: No focal airspace disease, pleural effusion, or pneumothorax. | | Hyperexpansion of the lungs. | | | | Heart/mediastinum: Cardiac silhouette is of normal size. Central pulmonary | | vasculature has a normal appearance. Prominent aortic calcifications. | | Valvuloplasty changes are noted. | | | | Bones: No acute osseous abnormality appreciated. | | | | IMPRESSION: | | | | No acute cardiopulmonary disease. | | | | Hyperexpansion compatible with obstructive pulmonary disease. | | | | Dictated and Signed by: John Groves MD | | Electronically signed: 08/19/2019 2:56 PM | + + + +---------+ + + | Performing | Address | City/State/Zipcode | Phone Number | | Organization | | | | + +---------+ + + | [facility] | | | | + +---------+ + + documented in this encounter Visit Diagnoses + + | Diagnosis | + + | Anemia, unspecified type | + + | Melena Blood in stool | + + documented in this encounter Administered Medications + +--------+ +--------+------+------+ | Medication Order | MAR | Action | Dose | Rate | Site | | | Action | Date | | | | + +--------+ +--------+------+------+ | acetaminophen (TYLENOL) tablet | Given | 08/22/20 | 650 mg | | | | 650 mg 650 mg, Oral, EVERY 4 | | 19 4:18 | | | | | HOURS PRN, Pain, or fever >= 38.6 | | PM PST | | | | | C (101.5 F), Starting Zofia | | | | | | | 08/19/19 at 2123 | | | | | | + +--------+ +--------+------+------+ + +---+ | | | + +---+ | albuterol 2.5 mg/3 mL nebulizer | | | solution 2.5 mg 2.5 mg, | | | Nebulization, RT EVERY 2 HOURS | | | PRN, Shortness of Breath, | | | Starting 08/25/19 at 1350 | | + +---+ | | | + +---+ + +-------+ +-------+---+---+ | albuterol-ipratropium 2.5-0.5 | Given | 08/26/20 | 3 mLs | | | | mg/3 mL nebulizer solution 3 mL | | 19 9:28 | | | | | 3 mL, Nebulization, RT Q6H, First | | AM PST | | | | | dose (after last modification) | | | | | | | on 08/20/19 at 0900 | | | | | | + +-------+ +-------+---+---+ +-------+ +-------+---+---+ | Given | 08/25/20 | 3 mLs | | | | | 19 8:18 | | | | | | PM PST | | | | +-------+ +-------+---+---+ | Given | 08/25/20 | 3 mLs | | | | | 19 4:00 | | | | | | PM PST | | | | +-------+ +-------+---+---+ + +---+ | | | + +---+ | amoxicillin-clavulanate | | | (AUGMENTIN) 875-125 mg per tablet | | | 1 tablet 1 tablet, Oral, 2 | | | TIMES DAILY, First dose on Fri | | | 08/26/19 at 1015, Indications: | | | Diverticulitis of the | | | Gastrointestinal Tract | | + +---+ | | | + +---+ + +-------+ +-------+---+---+ | atorvaSTATin (LIPITOR) tablet | Given | 08/26/20 | 20 mg | | | | 20 mg 20 mg, Oral, EVERY | | 19 8:42 | | | | | MORNING, First dose on Fri | | AM PST | | | | | 08/20/19 at 0900 | | | | | | + +-------+ +-------+---+---+ +-------+ +-------+---+---+ | Given | 08/25/20 | 20 mg | | | | | 19 8:06 | | | | | | AM PST | | | | +-------+ +-------+---+---+ | Given | 08/24/20 | 20 mg | | | | | 19 9:33 | | | | | | AM PST | | | | +-------+ +-------+---+---+ +---+---+ | | | +---+---+ + +-------+ +--------+---+---+ | brimonidine (ALPHAGAN) 0.2% | Given | 08/26/20 | 1 drop | | | | ophthalmic solution 1 drop 1 | | 19 8:48 | | | | | drop, Both Eyes, 2 TIMES DAILY, | | AM PST | | | | | First dose on Fri08/24/19 at | | | | | | | 1200 | | | | | | + +-------+ +--------+---+---+ +-------+ +--------+---+---+ | Given | 08/25/20 | 1 drop | | | | | 19 9:57 | | | | | | PM PST | | | | +-------+ +--------+---+---+ | Given | 08/25/20 | 1 drop | | | | | 19 8:08 | | | | | | AM PST | | | | +-------+ +--------+---+---+ +---+---+ | | | +---+---+ + +-------+ +--------+---+---+ | budesonide (PULMICORT) | Given | 08/26/20 | 0.5 mg | | | | nebulizer solution 0.5 mg 0.5 | | 19 9:28 | | | | | mg, Nebulization, RT BID, First | | AM PST | | | | | dose on Fri08/20/19 at 0900, RT | | | | | | | will administer. Shake well. | | | | | | | Protect from light. Rinse mouth | | | | | | | after use., | | | | | | + +-------+ +--------+---+---+ +-------+ +--------+---+---+ | Given | 08/25/20 | 0.5 mg | | | | | 19 8:18 | | | | | | PM PST | | | | +-------+ +--------+---+---+ | Given | 08/25/20 | 0.5 mg | | | | | 19 8:55 | | | | | | AM PST | | | | +-------+ +--------+---+---+ +---+---+ | | | +---+---+ + +-------+ +------+---+---+ | busPIRone (BUSPAR) tablet 5 mg | Given | 08/26/20 | 5 mg | | | | 5 mg, Oral, 2 TIMES DAILY, First | | 19 8:43 | | | | | dose (after last modification) | | AM PST | | | | | on Fri08/25/19 at 1630 | | | | | | + +-------+ +------+---+---+ +-------+ +------+---+---+ | Given | 08/25/20 | 5 mg | | | | | 19 4:17 | | | | | | PM PST | | | | +-------+ +------+---+---+ +---+---+ | | | +---+---+ + +-------+ +--------+---+---+ | carboxymethylcellulose (PF) | Given | 08/22/20 | 1 drop | | | | (REFRESH CELLUVISC, THERATEARS) | | 19 8:51 | | | | | 1% ophthalmic gel 1 drop 1 drop, | | AM PST | | | | | Both Eyes, EVERY 1 HOUR PRN, Dry | | | | | | | Eyes, Starting 08/22/19 at | | | | | | | 0815 | | | | | | + +-------+ +--------+---+---+ +---+---+ | | | +---+---+ + +-------+ +-------+---+---+ | dicyclomine (BENTYL) capsule 20 | Given | 08/26/20 | 20 mg | | | | mg 20 mg, Oral, 3 TIMES DAILY | | 19 4:36 | | | | | PRN, GI Upset, Starting Mon | | AM PST | | | | | 08/23/19 at 1353 | | | | | | + +-------+ +-------+---+---+ +-------+ +-------+---+---+ | Given | 08/25/20 | 20 mg | | | | | 19 12:28 | | | | | | PM PST | | | | +-------+ +-------+---+---+ | Given | 08/25/20 | 20 mg | | | | | 19 8:04 | | | | | | AM PST | | | | +-------+ +-------+---+---+ +---+---+ | | | +---+---+ + +-------+ +--------+---+---+ | dorzolamide (TRUSOPT) 2% | Given | 08/26/20 | 1 drop | | | | ophthalmic solution 1 drop 1 | | 19 8:48 | | | | | drop, Both Eyes, 2 TIMES DAILY, | | AM PST | | | | | First dose on Fri08/24/19 at | | | | | | | 1200 | | | | | | + +-------+ +--------+---+---+ +-------+ +--------+---+---+ | Given | 08/25/20 | 1 drop | | | | | 19 9:57 | | | | | | PM PST | | | | +-------+ +--------+---+---+ | Given | 08/25/20 | 1 drop | | | | | 19 8:07 | | | | | | AM PST | | | | +-------+ +--------+---+---+ +---+---+ | | | +---+---+ + +-------+ +------+---+---+ | escitalopram (LEXAPRO) tablet 5 | Given | 08/26/20 | 5 mg | | | | mg 5 mg, Oral, DAILY, First | | 19 8:43 | | | | | dose on Fri08/20/19 at 0900 | | AM PST | | | | + +-------+ +------+---+---+ +-------+ +------+---+---+ | Given | 08/25/20 | 5 mg | | | | | 19 8:06 | | | | | | AM PST | | | | +-------+ +------+---+---+ | Given | 08/24/20 | 5 mg | | | | | 19 9:33 | | | | | | AM PST | | | | +-------+ +------+---+---+ +---+---+ | | | +---+---+ + +-------+ + +---+---+ | fluticasone (FLONASE) 50 | Given | 08/26/20 | 2 sprays | | | | mcg/nasal spray 2 spray 2 spray, | | 19 8:48 | | | | | Each Nare, DAILY, First dose on | | AM PST | | | | | 08/20/19 at 1600, Shake | | | | | | | gently., | | | | | | + +-------+ + +---+---+ +-------+ + +---+---+ | Given | 08/25/20 | 2 sprays | | | | | 19 8:08 | | | | | | AM PST | | | | +-------+ + +---+---+ | Given | 08/24/20 | 2 sprays | | | | | 19 9:42 | | | | | | AM PST | | | | +-------+ + +---+---+ +---+---+ | | | +---+---+ + +-------+ + +---+---+ | HYDROcodone-acetaminophen | Given | 08/26/20 | 1 tablet | | | | (NORCO) 7.5-325 mg per tablet 1 | | 19 8:55 | | | | | tablet 1 tablet, Oral, EVERY 8 | | AM PST | | | | | HOURS PRN, Pain, Starting Zofia | | | | | | | 08/19/19 at 1951 | | | | | | + +-------+ + +---+---+ +-------+ + +---+---+ | Given | 08/25/20 | 1 tablet | | | | | 19 12:28 | | | | | | PM PST | | | | +-------+ + +---+---+ | Given | 08/25/20 | 1 tablet | | | | | 19 4:24 | | | | | | AM PST | | | | +-------+ + +---+---+ +---+---+ | | | +---+---+ + +-------+ +--------+---+---+ | HYDROmorphone (DILAUDID) | Given | 08/21/20 | 0.5 mg | | | | injection 0.5-1 mg 0.5-1 mg, | | 19 9:03 | | | | | Intravenous, EVERY 3 HOURS PRN, | | AM PST | | | | | Severe Pain, Pain, Starting Sat | | | | | | | 08/21/19 at 0806 | | | | | | + +-------+ +--------+---+---+ +---+---+ | | | +---+---+ + +---------+ +---------+---+ + | lidocaine (LIDODERM) 5% patch 1 | Patch | 08/26/20 | 1 patch | | Shoulder | | patch 1 patch, Transdermal, | Applied | 19 8:43 | | | -Right | | DAILY, First dose on Fri08/24/19 | | AM PST | | | | | at 1030, Apply for 12 hours, | | | | | | | then remove for 12 hours., Time | | | | | | | to remove patch: 10:00 PM | | | | | | + +---------+ +---------+---+ + + + +---------+---+ + | Patch Applied | 08/25/20 | 1 patch | | Back-Lef | | | 19 11:00 | | | t Lower | | | AM PST | | | | + + +---------+---+ + | Patch Applied | 08/24/20 | 1 patch | | Back-Low | | | 19 10:50 | | | er | | | AM PST | | | Middle | + + +---------+---+ + + +---+ | | | + +---+ | LORazepam (ATIVAN) tablet 0.5 | | | mg 0.5 mg, Oral, NIGHTLY PRN, | | | MAY REPEAT X 1, Anxiety, | | | Insomnia, Starting 08/21/19 | | | at 1058 | | + +---+ | | | + +---+ + +-------+ +-------+---+---+ | metoprolol succinate | Given | 08/26/20 | 25 mg | | | | (TOPROL-XL) ER tablet 25 mg 25 | | 19 8:42 | | | | | mg, Oral, DAILY, First dose on | | AM PST | | | | | 08/21/19 at 0915, Tablet may | | | | | | | be cut where scored but do not | | | | | | | crush., | | | | | | + +-------+ +-------+---+---+ +-------+ +-------+---+---+ | Given | 08/25/20 | 25 mg | | | | | 19 8:05 | | | | | | AM PST | | | | +-------+ +-------+---+---+ | Given | 08/24/20 | 25 mg | | | | | 19 9:33 | | | | | | AM PST | | | | +-------+ +-------+---+---+ +---+---+ | | | +---+---+ + +-------+ +--------+---+---+ | nitroglycerin (NITROSTAT) SL | Given | 08/19/20 | 0.4 mg | | | | tablet 0.4 mg 0.4 mg, | | 19 2:23 | | | | | Sublingual, EVERY 5 MIN PRN, | | PM PST | | | | | Chest pain, Starting Zofia 08/19/19 | | | | | | | at 1349, May give every 5 | | | | | | | minutes PRN chest pain, up to | | | | | | | three doses, and notify physician | | | | | | | after 2nd dose given - Do not | | | | | | | give if the SBP <100 mm Hg, | | | | | | + +-------+ +--------+---+---+ +---+---+ | | | +---+---+ + +-------+ +-------+---+---+ | pantoprazole (PROTONIX) DR | Given | 08/26/20 | 40 mg | | | | tablet 40 mg 40 mg, Oral, 2 | | 19 6:33 | | | | | TIMES DAILY BEFORE MEALS, First | | AM PST | | | | | dose on Fri08/20/19 at 1600, Do | | | | | | | not cut or crush., Indication: | | | | | | | Bleed, upper GI | | | | | | + +-------+ +-------+---+---+ +-------+ +-------+---+---+ | Given | 08/25/20 | 40 mg | | | | | 19 4:17 | | | | | | PM PST | | | | +-------+ +-------+---+---+ | Given | 08/25/20 | 40 mg | | | | | 19 6:04 | | | | | | AM PST | | | | +-------+ +-------+---+---+ +---+---+ | | | +---+---+ + +-------+ +-------+---+---+ | predniSONE (DELTASONE) tablet | Given | 08/26/20 | 10 mg | | | | 10 mg 10 mg, Oral, DAILY, First | | 19 8:42 | | | | | dose on Fri08/20/19 at 0900 | | AM PST | | | | + +-------+ +-------+---+---+ +-------+ +-------+---+---+ | Given | 08/25/20 | 10 mg | | | | | 19 11:09 | | | | | | AM PST | | | | +-------+ +-------+---+---+ | Given | 08/24/20 | 10 mg | | | | | 19 9:35 | | | | | | AM PST | | | | +-------+ +-------+---+---+ +---+---+ | | | +---+---+ + +-------+ + +---+---+ | sodium chloride (OCEAN) 0.65% | Given | 08/25/20 | 2 sprays | | | | nasal spray 2 spray 2 spray, | | 19 1:53 | | | | | Each Nare, EVERY 1 HOUR PRN, | | PM PST | | | | | Nasal Dryness, Please have at | | | | | | | bedside, Starting 08/20/19 at | | | | | | | 1541 | | | | | | + +-------+ + +---+---+ +-------+ + +---+---+ | Given | 08/24/20 | 2 sprays | | | | | 19 9:50 | | | | | | PM PST | | | | +-------+ + +---+---+ | Given | 08/24/20 | 2 sprays | | | | | 19 3:40 | | | | | | AM PST | | | | +-------+ + +---+---+ + +---+ | | | + +---+ | trolamine salicylate | | | (ASPERCREME) 10% cream Topical, | | | 4 TIMES DAILY PRN, Pain, Starting | | | Matt 08/24/19 at 0935, Apply to: | | | Back-Lower | | + +---+ | | | + +---+ documented in this encounter Additional Health Concerns + + + + | Infection | Noted Time | Resolved Time | + + + + | Methicillin-resistant Staphylococcus aureus | 06/08/2019 9:39 AM | | | | PDT | | + + + + documented as of this encounter
--- OUTSIDE RECORDS SUMMARY | ~2020-03-14 | XMS | Encounter Summary ---
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 | Role | Phone | + [...] | +--------+ + + + + | 11/25/ | Telephone | [facility] | Nikolay, | Medication Question | | 2019 | | MEDICINE [address] [place] [address] | MD Candido | | | | | [facility] | [address] [place] [address] | | | | | [place] [address] | [place] [address] | | | | | [phone] | [phone] | | | | | | | [...] | | 2019 | Visit | | 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
--- OUTSIDE RECORDS SUMMARY | ~2020-03-14 | XMS | Encounter Summary ---
Demographics + + + | Address | [address] | | | [place] [address] | + + + | Home Phone | | + + + | Preferred Language | Unknown | + + + | Marital Status | | + + + | Confucianism Affiliation | Unknown | + + + | Race | Unknown | + + + | Ethnic Group | Unknown | + + + Author + + + | Author | [facility] | | | and [place] | + + + | Organization | [facility] | | | and [...] Team Providers + +------+ + | Care Planing Machine Operator Name | Role | Phone [...] | +--------+ + + + + | 06/29/ | Home Care | [facility] [place] | Layla Pablo | CASE COMMUNICATION | | 2019 | Visit | [place] [address] | | | | | | ST [place] | | | | | | [address] | | | | | | [phone] | | | +--------+ + + + [...] [place] | | | | | | [id number] | | | | | | | | +--------+ + + + + | 04/11/ | Appointment | Radiology | Shawn Michael | | | 2019 | | | MD Marcelino [address] | | | | | | [address] | | | | | | [place] [address] | | | | | | [phone] | | | | | | | | +--------+ + + + + | 04/13/ | Office | Cardiology | Shawn Michael | | | 2020 | Visit | | MD Marcelino [address] | | | | | | [address] | | | | | | [place] [address] | | | | | | [phone] | | | | | | | [...]
--- OUTSIDE RECORDS SUMMARY | ~2020-03-14 | XMS | Encounter Summary ---
Demographics + + + | Address | [address] | | | [place] [address] | + + + | Home Phone [...] Team Providers + +------+ + | Care Blueprint Developer Name | Role | Phone | [...] | | Procedures | [address] | [place] [address] | | | | | 09/07 > | [place], | Phone: | | | | | PENDING FAX | [place] | [phone] | | | | | NUMBER | [address] | Fax: | | | | | | Phone: | [phone] | | | | | | [phone] | | | | | | | Fax: | | | | | | | [phone] | | +--------+ + + + + + Reason for Visit + + + | Reason | Comments | + + + | Follow-up | Hospital follow up | + + + Encounter Details +--------+---------+ + + + | Date | Type | Department | Care Team | Description | +--------+---------+ + + + | 08/31/ | Office | [facility] | Yana-Lani, | Acute GI bleeding | | 2019 | Visit | MEDICINE [address] [place] [address] | MD Candido | (Primary Dx); Other | | | | [facility] | [address] [place] [address] | iron deficiency | | | | [place] [address] | [place] [address] | anemia; Hiatal | | | | [phone] | [phone] | hernia; Pressure | | | | [...] it . Has been recently seen in [place] by a pain specialist and they have made plans to see her again in a week to finalize their assessment and issue recommendations for long-term [facility] pain management for her. She has been on opiates for many years and she states she ca nnot function without her current pain regimen. I have been refilling this for her while we are waiting for the evaluation from the pain specialist. Her son is with her today who states that he restarted her on carvedilol after he talked to her appliance fixer. Apparently she had the carvedilol discontinued during [...] the pain specialist she recently seen in [facility]. They indicated that they wanted to see [...] Sig; Surgeon: Edwin Stoddard MD; Location: [facility] PROC[facility]URE [facility] HYSTERECTOMY NIRMAL AND BSO TONSILLECTOMY AND ADENOIDECTOMY UPPER GASTROINTESTINAL ENDOSCOPY N/A 06/07/2019 Procedure: EGD; Surgeon: Edwin Stoddard MD; Location: [facility] PROCEDURE UN[facility] UPPER GASTROINTESTINAL ENDOSCOPY N/A 08/20/2019 Procedure: EGD; Surgeon: John Grimes MD; Location: [facility] PROCEDURE [facility] CURRENT MEDICATIONS Current [...] 1. Parts of this documentwere created using Nulu speech recognition software. As a resu lt, [...] | | 2019 | Visit | | CASE MANAGEMENT RN [address] | | | | | | [place] | | | | | | [address] | | | | | | | | +--------+ + + + + | 04/11/ | Appointment | Radiology | Shawn Michael | | | 2019 | | | MD [address] | | | | | | [address] [place] | | | | | | [place] [address] | | | | | | [phone] | | | | | | | | +--------+ + + + + | 04/13/ | Office | Cardiology | Shawn Michael | | | 2019 | Visit | | MD [address] | | | | | | [address] [place] | | | | | | [place] [address] | | | | | | [phone] | | | | | | | [...] [address] | [place] | [phone] | | [facility] | | [address] | | | - LABORATORY | | [...] [address] | [place] | [phone] | | [facility] | | [address] | | | - LABORATORY | | [...]
--- OUTSIDE RECORDS SUMMARY | ~2020-03-14 | XMS | Encounter Summary ---
Demographics + + + | Address | [address] | | | [place] [address] | + + + | Home Phone [...] Team Providers + +------+ + | Care Vendette Name | Role | Phone | + +------+ + | Candido Link | PCP | | | MD | | | + +------+ + Encounter Details +--------+ + + + + | Date | Type | Department | Care Team | Description | +--------+ + + + + | 01/04/ | Orders Only | [facility] | YanaArpit, | Generalized | | 2020 | | MEDICINE [address] | MD Candido | osteoarthritis; Long | | | | [address] [place] | [address] [place] | term prescription | | | | [place] [address] | [place] [address] | opiate use | | | | [phone] | [phone] | | | | | | | [...] | 2020 | Visit | | [address] | | | | | | [place] | | | | | | [address] | | | | | | | | +--------+ + + + + | 04/11/ | Appointment | Radiology | Shawn Michael | | | 2019 | | | MD [address] | | | | | | [address] [place] | | | | | | [place] [address] | | | | | | [phone] | | | | | | | | +--------+ + + + + | 04/13/ | Office | Cardiology | Shawn Michael | | | 2019 | Visit | | MD [address] | | | | | | [address] [place] | | | | | | [place] [address] | | | | | | [phone] | | | | | | | | +--------+ + + + + documented as of this encounter Visit Diagnoses + + | Diagnosis | + + | Generalized osteoarthritis Generalized osteoarthrosis, unspecified site | + + | nursing 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
--- OUTSIDE RECORDS SUMMARY | ~2020-03-14 | XMS | Encounter Summary ---
Demographics + + + | Address | [address] | | | [place] [address] | + + + | Home Phone [...] Team Providers + +------+ + | Care Ship Manager Name | Role | Phone | [...] + | 01/25/ | Home Care | [facility] [place] | Manisha Rivas, | SN REPEAT VISIT | | 2019 | Visit | [place] [address] | [place] | | | | | [address] [place] | | | | | | [address] | | | | | | [phone] | | | +--------+ + + + [...] + | Blood Pressure | 110/60 | 01/26/2020 11:53 AM | | | | | PDT | | + + + + + | Pulse | 70 | 01/26/2020 11:53 AM | | | | | PDT | | + + + + + | Temperature | 36.7 C (98 F) | 01/26/2020 11:53 AM | | | | | PDT | | + + + + + | Respiratory Rate | 22 | 01/26/2020 11:53 AM | | | | | PDT | | + + + + + | Oxygen Saturation | 99% | 01/26/2020 11:53 AM | | | | | PDT [...] | | | | | [place] [address] | | | | | | [phone] | | | | | | | | +--------+ + + + + | 04/13/ | Office | Cardiology | Shawn Michael | | | 2019 | Visit | | MD Marcelino [address] | | | | | | [address] | | | | | | [place] [address] | | | | | | [phone] | | | | | | | [...] - REPEAT VISIT | | Discipline - Assisted | + + + + +--------+--------+ + [...] 020 | | | interventio | | Assisted | | | | | n | [...] | | Active | | | | Assisted | | 020 | | | interventio [...] | | Active | | | | Assisted | | 020 | | | interventio | | | | | | | n | | | | | | | scheduled/d | | | | | | | ocumented | | | | | | | in this | | | | | | | visit | + + +--------+--------+ + + | Health Promotion | Immunizations | | | 1 goal | 1 goal | | Disciplines: | | | Active | linked to | interventio | | Assisted, | | 020 | | scheduled/d | n | | Physical Therapy, | | | | ocumented | scheduled/d | | Occupational | | | | interventio | ocumented | | Therapy, Home Health | | | | n | in this | | Jana Manager [place], | | | | | visit | | Respiratory Therapy | | | | | | + + +--------+--------+ + + | Heart Failure/CHF | Heart | | | 1 goal | 1 goal | | Disciplines: | Failure/CHF | | Active | linked to | interventio | | Assisted | | 020 | | scheduled/d | [...] | | | | n | | Assisted | | | | | scheduled/d | [...] | | Active | | | | Assisted | | 020 | | | interventio [...] | | + + +--------+-------+ + | Minimize risk of | Health Promotion | | No | | | communicable disease | | | | | | transmission | | | | | + + [...] HH SHARED | | | | | prevention [...] + + +--------+--------+ + | Teaching - disease | Problem: Health | | | | | process | PromotionGoal: | Comple | | | | Description: | Minimize risk of | yoel | | | | Instruction/Educatio | communicable disease | | | | | n/Training provided | transmission | | | | | on COVID-19: | | | | | | Provided education | | | | | | on prevention of | | | | | | COVID-19 spread | | | | | | per [facility] protocols | | | | | | for prevention. | | | | | | Provided education | | | | | | on COVID-19 symptoms | | | | | | (Cough, fever, sore | | | | | | throat, SOB) and | | | | | | risk factors | | | | | | (underlying disease, | | | | | | recent travel, pt. | | | | | | contact with | | | | | | +COVID-19 person). | | | | | | Provided education | | | | | | on when to contact | | | | | | health care | | | | | | professionals and | | | | | | when to seek medical | | | | | | care. [...]
--- OUTSIDE RECORDS SUMMARY | ~2020-03-14 | XMS | Encounter Summary ---
Demographics + + + | Address | [address] | | | [place] [address] | + + + | Home Phone [...] Team Providers + +------+ + | Care Medical Doctor Name | Role | Phone | + [...] [place] | | | | | | [address] | | | | | | [phone] | | | +--------+ + + + [...] + + + | Blood Pressure | 118/66 | 06/22/2019 2:08 PM | | | | | PDT | | + + + + + | Pulse | 97 | 06/22/2019 2:08 PM | | | | | PDT | | + + + + + | Temperature | 36.6 C (97.9 F) | 06/22/2019 2:08 PM | | | | | PDT | | + + + + + | Respiratory Rate | - | - | | + + + + + | Oxygen Saturation | 97% | 06/22/2019 2:08 PM | | | | | PDT [...] | | | | | [place] [address] | | | | | | [phone] | | | | | | | | +--------+ + + + + | 04/13/ | Office | Cardiology | Shawn Michael | | | 2019 | Visit | | MD Marcelino [address] | | | | | | [address] [place] | | | | | | [place] [address] | | | | | | [phone] | | | | | | | [...] | | | | | | caregiver | | | | | | demonstrates upper | | | | | | body dressing with | | | | | | verbal cues using | | | | | | button hook. The | | | | | | patient and/or | | | | | | caregiver | | | | | | demonstrates lower | | | | | | body dressing with | | | | | | minimal assistance | | | | | | using sock-aid, shoe | | | | | | horn, senior information security consultant and | | | | | | dressing stick. | | | | | | Outcomes: The | | | | | | patient and/or | | | | | | caregiver will | | | | | | achieve maximal | | | | | | safety and | | | | | [...] Problem: HH OT ADL | | | Trial of AD with ADLs. | | Description: | DEFICITSGoal: HH OT | Comple | | | | Occupational | ADL | yoel | | | | Therapist to visit | | | | | | for assessment, | | | | | | planning, | | | | | | teaching/training, | | | | | | and evaluation of | | | | | | the POC related to | | | | | | patient's ability to | | | | | | perform ADLs due to | | | | | | decreased activity | | | | | | tolerance, and | | | | | | decreased strength. | | | | | + + +--------+--------+ + documented in this encounter"
--- OUTSIDE RECORDS SUMMARY | ~2020-03-14 | XMS | Encounter Summary ---
Demographics + + + | Address | [address] | | | [place] [address] | + + + | Home Phone [...] Team Providers + +------+ + | Care Time Lock Expert Name | Role | Phone | + [...] + + | 08/13/ | Telephone | [facility] | Nikolay, | Request For Medical | | 2018 | | MEDICINE [address] [place] [address] | MD Candido | Records | | | | [facility] | [address] [place] [address] | | | | | [place] [address] | [place] [address] | | | | | [phone] | [phone] | | | | | | | [...] | | 2019 | Visit | | LEAN MANAGER [address] | | | | | | [place] | | | | | | [address] | | | | | | | | +--------+ + + + + | 04/11/ | Appointment | Radiology | Shawn Michael | | | 2019 | | | MD [address] | | | | | | [address] [place] | | | | | | [place] [address] | | | | | | [phone] | | | | | | | | +--------+ + + + + | 04/13/ | Office | Cardiology | Shawn Michael | | | 2019 | Visit | | MD [address] | | | | | | [address] [place] | | | | | | [place] [address] | | | | | | [phone] | | | | | | | [...]
--- OUTSIDE RECORDS SUMMARY | ~2020-03-14 | XMS | Encounter Summary ---
Demographics + + + | Address | [address] | | | [place] [address] | + + + | Home Phone [...] Providers + +------+ + | Care Research And Evaluation Analyst Name | Role | Phone | [...] | Telephone | [facility] [place] | Shikha Peace, | Referral Consult | | 2019 | | [place] [address] | RN | | | | | [place] | | | | | | [address] | | | | | | [phone] | | | +--------+ + + + [...] | | 2019 | Visit | | SHOCK ABSORPTION FLOOR LAYER [address] | | | | | | [place] | | | | | | [address] | | | | | | | | +--------+ + + + + | 04/11/ | Appointment | Radiology | Shawn Michael | | 2019 | | | MD [address] | | | | | | [address] [place] | | | | | | [place] [address] | | | | | | [phone] | | | | | | | | +--------+ + + + + | 04/13/ | Office | Cardiology | Shawn Michael | | 2019 | Visit | | MD [address] | | | | | | [address] [place] | | | | | | [place] [address] | | | | | | [phone] | | | | | | | [...]
--- OUTSIDE RECORDS SUMMARY | ~2020-03-14 | XMS | Encounter Summary ---
Demographics + + + | Address | [address] | | | [place] [address] | + + + | Home Phone | | + + + | Preferred Language | Unknown | + + + | Marital Status | | + + + | Spiritism Affiliation | Unknown | + + + | Race | Unknown | + + + | Ethnic Group | Unknown | + + + Author + + + | Author | [facility] | | | and [place] | + + + | Organization | [facility] | | [...] Team Providers + +------+ + | Care Sand Mill Operator Name | Role | Phone [...] [facility] | Wanda Barbosa, | SN DISCIPLINE D/C | | 2019 | Visit | [address] [address] | [place] | | | | | [place] | | | | | | [address] | | | | | | [phone] | | | +--------+ + + + [...] + + + | Blood Pressure | 128/80 | 09/23/2019 1:40 PM | | | | | PST | | + + + + + | Pulse | 74 | 09/23/2019 1:40 PM | | | | | PST | | + + + + + | Temperature | 36.2 C (97.1 F) | 09/23/2019 1:40 PM | | | | | PST | | + + + + + | Respiratory Rate | 18 | 09/23/2019 1:40 PM | | | | | PST | | + + + + + | Oxygen Saturation | 97% | 09/23/2019 1:40 PM | | | | | PST [...] [place] | | | | | | [address] | | | | | | | | +--------+ + + + + | 04/11/ | Appointment | Radiology | Shawn Michael | | 2019 | | | MD Marcel[address] | | | | | [address] | | | | | | [place] [address] | | | | | | [phone] | | | | | | | | +--------+ + + + + | 04/13/ | Office | Cardiology | Shawn Michael | | | 2019 | Visit | | MD Marcelino [address] | | | | | | [facility] [address] | | | | | | [place] [address] | | | | | | [phone] | | | | | | | [...] + | Visit Type - SN - DISCIPLINE D/C | | Discipline - Penitentiary | + + + + +--------+--------+ + + | Problem | Description | Start | Status | Goals | Interventio | | | | Date | | | ns | + + +--------+--------+ + + | Bleeding | RECENT GI bleed | | | - | 2 problem | | Precautions | requiring blood | 08/28/ | Active | | | | Disciplines: | products and iron | 2018 | | | interventio | | Penitentiary | infusion. | | | | ns | | | | | | | scheduled/d | | | | | | | ocumented | | | | | | | in this | | | | | | | visit | + + +--------+--------+ + + | HH SHARED | Depression | | | - | 1 problem | | DEPRESSION | | 08/28/ | Active | | | | Disciplines: | | 2018 | | | interventio | | Penitentiary | | | | | n | [...] 1 problem | | Disciplines: | | 08/28/ | Active | linked to | | | Penitentiary | | 2018 | | scheduled/d | interventio | | | | | | ocumented | n | | | | | | interventio | scheduled/d | | | | | | n | ocumented | | | | | | | in this | | | | | | | visit 1 | | | | | | | goal | | | | | | | interventio | | | | | | | n | | | | | | | scheduled/d | | | | | | | ocumented | | | | | | | in this | | | | | | | visit | + + +--------+--------+ + + | HH SHARED PAIN | Pain Diffuse | | | 1 goal | 1 goal | | Disciplines: | osteoarthritis pain | 08/28/ | Active | linked to | interventio | | Penitentiary | | 2018 | | scheduled/d | n | | | | | | ocumented | scheduled/d | | | | | | interventio | ocumented | | | | | | n | in this | | | | | | | visit | + + +--------+--------+ + + | HH SN Medication | Medication | | | 1 goal | 4 goal | | Management | Management | 08/28/ | Active | linked to | interventio | | Disciplines: | | 2019 | | scheduled/d | ns | | Penitentiary | | | | ocumented | scheduled/d | | | | | | interventio | ocumented | | | | | | n | in this | | | | | | | visit | + + +--------+--------+ + + | HH SN Urinary | Incontinence | | | 1 goal | 1 goal | | Elimination | | 08/28/ | Active | linked to | interventio | | Disciplines: | | 2019 | | scheduled/d | n | | Penitentiary | | | | ocumented | scheduled/d | | | | | | interventio | ocumented | | | | | | n | in this | | | | | | | visit | + + +--------+--------+ + + | Heart Failure/CHF | Heart Failure/CHF | | | - | 1 problem | | Disciplines: | | 08/28/ | Active | | | | Penitentiary | | 2019 | | | interventio | | | | | | | n | | | | | | | scheduled/d | | | | | | | ocumented | | | | | | | in this | | | | | | | visit | + + +--------+--------+ + + | Respiratory Status | Respiratory Status | | | 1 goal | 1 goal | | Disciplines: | DIAGNOSIS COPD, | 08/28/ | Active | linked to | interventio | | Penitentiary | CHRONIC OXYGEN USE | 2019 | | scheduled/d | n | | | 3Lpm | | | ocumented | scheduled/d | [...] | No | | | Description: | | | | | | Patient/CG will | | | | | | verbalize | | | | | | understanding of | | | | | | pain teaching | | | | | | handout within 2 | | | | | | weeks. Control of | | | | | | pain as evidenced by | | | | | | statement that pain | | | | | | is decreased or | | | | | | relieved at a 3 or | | | | | | less during episode | | | | | | of care. | | | | | + + +--------+-------+ + | HH SN MEDICATION | HH SN Medication | | No | | | MANAGEMENT | Management | | | | | Description: Pt/CG | | | | | | will verbalize | | | | | | knowledge of | | | | | | medications as | | | | | | evidenced by pt | | | | | | taking meds when | | | | | | prescribed and know | | | | | | when to notify MD | | | | | | with in 3 weeks. | | | | | | Pt will continue to | | | | | | be compliant and | | | | | | take medications as | | | | | | ordered. Son | | | | | | Yadiel fills med | | | | | | box and administers | | | | | | patient's | | | | | | medications. | | | | | + + +--------+-------+ + | HH SN URINARY | HH SN Urinary | | No | | | ELIMINATION | Elimination | | | | | Description: | | | | | | Patient and/or | | | | | | caregiver will | | | | | | verbalize knowledge | | | | | | of signs and | | | | | | symptoms of urinary | | | | | | infection/complicati | | | | | | ons and when to | | | | | | report to skilled | | | | | | nurse/physician | | | | | | within 4 weeks. | | | | | | Cystitis and more | | | | | | serious infection | | | | | | complications will | | | | | | be prevented. | | | | | + + +--------+-------+ + | HH SN RESPIRATORY | Respiratory Status | | No | | | Description: | | | | | | Pt/CG will verbalize | | | | | | knowledge of COPD | | | | | | as presented in [facility] | | | | | | Pt teaching | | | | | | handouts within 4 | | | | | | weeks. Pt/CG | | | | | | verbalizes | | | | | | understanding of | | | | | | fluid and nutrition | | | | | | plan according to | | | | | | instructions within | | | | | | 4 weeks. Pt | | | | | | maintains rest needs | | | | | | and activity | | | | | | restrictions within | | | | | | breathing ability | | | | | | within 4 weeks. | | | | | + + +--------+-------+ + + + +--------+--------+ + | Intervention | Associated | Status | Varian | Visit Notes | | | Problem/Goal | | ce | | + + +--------+--------+ + | Bleeding | Problem: Bleeding | | | | | precautions | Precautions | Comple | | | | Description: | | yoel | | | | Assess pt for S/S of | | | | | | GI distress. | | | | | + + +--------+--------+ + | Instruct in S&S to | Problem: Bleeding | | | The patient and | | report to RN/MD | Precautions | Comple | | caregiver instructed in | | Description: | | yoel | | signs and symptoms of | | Instruct pt/CG | | | | complications and | | regarding GI | | | | disease process and | | distress and provide | | | | when to report to RN/MD | | [place] [facility] teaching | | | | . The patient and/or | | handout. | | | | caregiver verbalized | | | | | | understanding of signs | | | | | | and symptoms and when to | | | | | | report to RN/MD as | | | | | | instructed:Yes. | + + +--------+--------+ + | Assess [...] depression. | | | | | | Assess need for | | | | | | adjustments to | | | | | | medications for | | | | | | depression. Assess | | | | | | need for referral | | | | | | to [facility] for | | | | | | counseling or other | | | | | | mental health | | | | | | services. | | | | | + [...] | | | | | | strategies. RN to | | | | | | reinstruct in safety | | | | | | booklet. | | | | | + + +--------+--------+ + | Fall risk | Problem: SHARED | | | Pt continues to have | | identified | FALLS | Comple | | falls at home due to | | Description: RN to | | yoel | | weakness, unsteady and | | assess patient | | | | unsupervised ambulation | | history of falls at | | | | | | each home visit. | | | | | + + +--------+--------+ + | Monitor and | Problem: SHARED | | | See pain asssess | | Address Pain | PAINGoal: PAIN | Comple | | | | Description: | | yoel | | | | Monitor and address | | | | | | pain through use of | | | | | | numeric pain scale | | | | | | 0-10/10. RN to | | | | | | assess for pain | | | | | | characteristics | | | | | | [...] | + + +--------+--------+ + | Assess side | Problem: SN | | | Evaluate the | | effects and response | Medication | Comple | | effectiveness of the | | to medications | ManagementGoal: | yoel | | current treatment | | Description: | SN MEDICATION | | | regimen, and notify | | Evaluate the | MANAGEMENT | | | physician for the need | | adherence, | | | | for changes in the plan | | effectiveness, and | | | | of care. | | response of the | | | | | | current treatment | | | | | | regimen and notify | | | | | | physician for the | | | | | | need for changes in | | | | | | the plan of care. | | | | | + + +--------+--------+ + | Instruct | Problem: SN | | | Instructed patient and | | medications | Medication | Comple | | caregiver on medication | | Description: | ManagementGoal: | yoel | | administration, | | Instruct | SN MEDICATION | | | purpose, dosages, | | patient/caregiver in | MANAGEMENT | | | preparation, scheduling, | | pain medication | | | | side effects, food/drug | | administration for | | | | interactions, and | | optimal | | | | potential complications. | | results.Pre-medicate | | | | Current regimen and | | for dressing | | | | compliance reviewed with | | changes PRN. RN to | | | | patient and | | leave updated | | | | caregiver.The patient | | medication list in | | | | and/or caregiver | | pt's home. | | | | verbalized understanding | | | | | | of all medication(s) as | | | | | | instructed: Yes | + + +--------+--------+ + | Skilled assessment | Problem: SN | | | No changed meds, or | | medications | Medication | Comple | | new meds noted or | | Description: RN to | ManagementGoal: | yoel | | reported. | | reconcile and | SN MEDICATION | | | | | instruct pt/CG | MANAGEMENT | | | | | regarding medication | | | | | | effects, side | | | | | | effects, dose, route | | | | | | and when to notify | | | | | | MD/RN | | | | | + + +--------+--------+ + | Assess knowledge | Problem: SN | | | | | of meds | Medication | Comple | | | | Description: | ManagementGoal: | yoel | | | | Assess the patient | SN MEDICATION | | | | | and/or caregiver's | MANAGEMENT | | | | | knowledge of | | | | | | medication | | | | | | administration, | | | | | | purpose, dosages, | | | | | | scheduling, side | | | | | | effects, food/drug | | | | | | interactions, and | | | | | | potential | | | | | | complications. | | | | | | Assess patient's | | | | | | financial resources | | | | | | for purchasing | | | | | | medications. | | | | | | (possible DENTURE MODEL MAKER | | | | | | referral). RN to | | | | | | assess pts/cgs | | | | | | literacy, the | | | | | | ability to read, | | | | | | understand and act | | | | | | on health | | | | | | information. PATIENT | | | | | | IS [place] AND UNABLE | | | | | | TO READ MEDICATION | | | | | | BOTTLES Assess | | | | | | patient and | | | | | | caregiver ability to | | | | | | manage medications. | | | | | | Assess patient and | | | | | | caregiver knowledge | | | | | | of drug allergies, | | | | | | dose/route/frequency | | | | | | , new or changed | | | | | | medications, | | | | | | classification, | | | | | | reason for taking, | | | | | | effectiveness, drug | | | | | | interactions, food | | | | | | interactions, side | | | | | | effects/adverse | | | | | | reactions, | | | | | | contraindications, | | | | | | duplicative therapy, | | | | | | lab tests required, | | | | | | and ability to use | | | | | | pill box and/or | | | | | | medication list. SON | | | | | | [employer] [facility] [facility] | | | | | | BOX AND ADMINISTERS | | | | | | MEDICATIONS. | | | | | + + +--------+--------+ + | Assess for urinary | Problem: SN | | | No s/s UTI reported or | | status and/or | Urinary | Comple | | assessed, Pt denies | | infection | EliminationGoal: HH | yoel | | painful urination or | | Description: | SN URINARY | | | frequency | | Assess for urinary | ELIMINATION | | | | | status/infection. | | | | | + + +--------+--------+ + | Assess for | Problem: Heart | | | See clinical | | cardiovascular | Failure/CHF | Comple | | assessment in today's | | status Description: | | yoel | | contact. | | Assess compliance | | | | | | with low sodium | | | | | | diet. Assess Pt for | | | | | | impending S/S of | | | | | | CHF. RN to assess | | | | | | weight of patient at | | | | | | each home visit. | | | | | | | | | | | + + +--------+--------+ + | Assess respiratory | Problem: Respiratory | | | No s/s COPD | | status | StatusGoal: SN | Comple | | exacerbation noted. Pt | | Description: | RESPIRATORY | yoel | | continues to wear oxygen | | Assess pt for S/S of | | | | continously and sat | | exacerbation of | | | | today was 97 on 3 liters | | COPD Assess pulse | | | | | | ox at each home | | | | | | visit notify MD for | | | | | | Oxygen saturation < | | | | | | 90%. | | | | | + + +--------+--------+ + documented in this encounter"
--- OUTSIDE RECORDS SUMMARY | ~2020-03-14 | XMS | Encounter Summary ---
Demographics + + + | Address | [address] | | | [place] [address] | + + + | Home Phone | | + + + | Preferred Language | Unknown | + + + | Marital Status | | + + + | Cheondoism Affiliation | Unknown | + + + | Race | Unknown | + + + | Ethnic Group | Unknown | + + + Author + + + | Author | [facility] | | | and [place] | + + + | Organization | [facility] | | | [...] Team Providers + +------+ + | Care Inserter Promotional Item Name | Role | Phone | + +------+ + | Candido Link | PCP | | | MD | | | + +------+ + Encounter Details +--------+--------+ + + + | Date | Type | Department | Care Team | Description | +--------+--------+ + + + | 05/06/ | Intake | [facility] [place] [facility] | | N/A | | 2020 | | [facility] [address] | | | | | | [address] | | | | | | [place], [place] | | | | | | [address] | | | | | | [phone] | | | +--------+--------+ + + + [...] [place] | | | | | | [address] | | | | | | | | +--------+ + + + + | 04/11/ | Appointment | Radiology | Shawn Michael | | | 2019 | | | MD [address] | | | | | | [address] [place] | | | | | | [place] [address] | | | | | | [phone] | | | | | | | | +--------+ + + + + | 04/13/ | Office | Cardiology | Shawn Michael | | | 2019 | Visit | | MD [address] | | | | | | [address] [place] | | | | | | [place] [address] | | | | | | [phone] | | | | | | | [...]
--- OUTSIDE RECORDS SUMMARY | ~2020-03-14 | XMS | Encounter Summary ---
Demographics + + + | Address | [address] | | | [place] [address] | + + + | Home Phone | | + + + | Preferred Language | Unknown | + + + | Marital Status | | + + + | Anglican Affiliation | Unknown | + + + | Race | Unknown | + + + | Ethnic Group | Unknown | + + + Author + + + | Author | [facility] | | | and [place] | + + + | Organization | [facility] | | [...] Team Providers + +------+ + | Care Oven Heater Helper Name | Role | Phone | [...] | +--------+ + + + + | 07/16/ | Home Care | [facility] | Bernardo Souza | OT REPEAT VISIT | | 2018 | Visit | [address] [address] | [place], [place] | | | | | [place] | | | | | | [address] | | | | | | [phone] | | | +--------+ + + + [...] +---------+ + + | Blood Pressure | 102/58 | 07/16/2019 2:05 PM | | | | | PDT | | + +---------+ + + | Pulse | 91 | 07/16/2019 2:05 PM | | | | | PDT | | + +---------+ + + | Temperature | - | - | | + +---------+ + + | Respiratory Rate | - | - | | + +---------+ + + | Oxygen Saturation | 97% | 07/16/2019 2:05 PM | | | | | PDT [...] | | 2019 | Visit | | LADLE FILLER [address] | | | | | | [place] | | | | | | [address] | | | | | | | | +--------+ + + + + | 04/11/ | Appointment | Radiology | Shawn Michael | | | 2019 | | | MD [address] | | | | | | [address] [place] | | | | | | [place] [address] | | | | | | [phone] | | | | | | | | +--------+ + + + + | 04/13/ | Office | Cardiology | Shawn Michael | | | 2019 | Visit | | MD [address] | | | | | | [address] [place] | | | | | | [place] [address] | | | | | | [phone] | | | | | | | [...] OT HEP | | | OT provided family | | Progress HEP | NEEDGoal: OT HOME | Comple | | with BUE strengthening | | Description: | EXERCISE PROGRAM | yoel | | exercises with use of | | Instruct patient | (HEP) NEED | | | theraband and weights. | | and/or caregiver in | | | | | | home exercise | | | | | | program. | | | | | + + +--------+--------+ + documented in this encounter"
--- OUTSIDE RECORDS SUMMARY | ~2020-03-14 | XMS | Encounter Summary ---
Demographics + + + | Address | [address] | | | [place] [address] | + + + | Home Phone | | + + + | Preferred Language | Unknown | + + + | Marital Status | | + + + | Zoroastrian Affiliation | Unknown | + + + | Race | Unknown | + + + | Ethnic Group | Unknown | + + + Author + + + | Author | [facility] | | | and [place] | + + + | Organization | [facility] | | | [...] Team Providers + +------+ + | Care Copying Machine Repairer Name | Role | Phone | [...] + | 12/14/ | Home Care | [facility] [place] | García Walker, PT | PT SECONDARY EVAL | | 2020 | Visit | [place] [address] | [address] [place] | | | | | [place] | [place] [address] | | | | | [address] | [phone] | | | | | [phone] | | | +--------+ + + + [...] + + + | Blood Pressure | 152/70 | 12/15/2019 10:29 AM | | | | | PDT | | + + + + + | Pulse | 95 | 12/15/2019 10:29 AM | | | | | PDT | | + + + + + | Temperature | 37 C (98.6 F) | 12/15/2019 10:29 AM | | | | | PDT | | + + + + + | Respiratory Rate | - | - | | + + + + + | Oxygen Saturation | 94% | 12/15/2019 10:29 AM | 3 | | | | PDT | | [...] [place] | | | | | | [id number] | | | | | | | | +--------+ + + + + | 04/11/ | Appointment | Radiology | Shawn Michael | | 2019 | | | MD [address] | | | | | | [address] | | | | | | [place] [address] | | | | | | [phone] | | | | | | | | +--------+ + + + + | 04/13/ | Office | Cardiology | Julieta Michaelr | | | 2019 | Visit | | MD Marcelino [address] | | | | | | [address] [place] | | | | | | [place] [address] | | | | | | [phone] | | | | | | | [...]
--- OUTSIDE RECORDS SUMMARY | ~2020-03-14 | XMS | Encounter Summary ---
Demographics + + + | Address | [address] | | | [place] [address] | + + + | Home Phone | | + + + | Preferred Language | Unknown | + + + | Marital Status | | + + + | Lutheran Affiliation | Unknown | + + + [...] Team Providers + +------+ + | Care Pcb Design Engineer Name | Role | Phone | [...] 12/02/ | Home Care | [facility] [place] | Rick Taylor | CASE COMMUNICATION | | 2020 | Visit | [place] [address] | | | | | | [place] | | | | | | [address] | | | | | | [phone] | | | +--------+ + + + [...] [place] | | | | | | [address] | | | | | | | | +--------+ + + + + | 04/11/ | Appointment | Radiology | Shawn Michael | | | 2019 | | | MD [address] | | | | | | [address] [place] | | | | | | [place] [address] | | | | | | [phone] | | | | | | | | +--------+ + + + + | 04/13/ | Office | Cardiology | Shawn Michael | | 2019 | Visit | | MD [address] | | | | | | [address] [place] | | | | | | [place] [address] | | | | | | [phone] | | | | | | | [...]
--- OUTSIDE RECORDS SUMMARY | ~2020-03-14 | XMS | Encounter Summary ---
Demographics + + + | Address | [address] | | | [place] [address] | + + + | Home Phone [...] Team Providers + +------+ + | Care Party Plan Sales Unit Sales Leader Name | Role | Phone | + +------+ + | Candido Link | PCP | | | MD | | | + +------+ + Reason for Referral Hospice (Routine) +--------+ + + + + + | Status | Reason | Specialty | Diagnoses / | Referred By | Referred To | | | | | Procedures | Contact | Contact | +--------+ + + + + + | Closed | Specialty | Hospice | Diagnoses | | [facility] [place] | | | Services | Services | Chronic | [facility] | [place] | | | Required | | combined | i, | COMMUNITY | | | | | systolic and | [facility] | [facility] [address] | | | | | diastolic | , [address] | | | | | congestive | [address] | [place] | | | | | heart | [place], | [place] | | | | | failure | [place] | [address] | | | | | (HCC) | [address] | Phone: | | | | | | Phone: | [phone] | | | | | | [phone] | | | | | | | Fax: | | | | | | | [phone] | | +--------+ + + + + + Hospice (Routine) + + + + + + + | Status | Reason | Specialty | Diagnoses / | Referred By | Referred To | | | | | Procedures | Contact | Contact | + + + + + + + | Canceled | Specialty | Hospice | Diagnoses | | [facility] | | | Services | Services | Chronic | [facility] | [place] | | | Required | | combined | i, | [facility] [address] | | | | | systolic and | [facility] | [address] | | | | | diastolic | , [place] [address] | [address] | | | | | congestive | [address] | [place], [place] | | | | | heart | [place], | [address] | | | | | failure | [place] | Phone: | | | | | ([facility]LY [facility]) | [address] | [phone] | | | | | | Phone: | Fax: | | | | | | [phone] | [phone] | | | | | | Fax: | | | | | | | [phone] | | + + + + + + + Reason for Visit +---------+ + | Reason | Comments | +---------+ + | Hospice | | +---------+ + Encounter Details +--------+ + + + + | Date | Type | Department | Care Team | Description | +--------+ + + + + | 12/21/ | Telephone | [facility] | Nikolay, | Hospice | | 2020 | | MEDICINE [address] | MD [address] | | | | | [address] [place] | [address] [facility] | | | | | [place] [address] | [place] [address] | | | | | [phone] | [phone] | | | | | | | [...] [place] | | | | | | [address] | | | | | | | | +--------+ + + + + | 04/11/ | Appointment | Radiology | Shawn Michael | | | 2019 | | | MD [address] | | | | | | [address] [place] | | | | | | [place] [address] | | | | | | [phone] | | | | | | | | +--------+ + + + + | 04/13/ | Office | Cardiology | Shawn Michael | | | 2020 | Visit | | MD [address] | | | | | | [address] [place] | | | | | | [place] [address] | | | | | | [phone] | | | | | | | | +--------+ + + + + + + +--------+ + + | Name | Type | Priori | Associated Diagnoses | Order Schedule | | | | ty | | | + + +--------+ + + | AMB Referral to Prov | Outpatient | Routin | Chronic combined | Ordered: 12/22/2019 | | Hospice ([facility] | Referral | e | systolic and | | | Region) | | | diastolic congestive | | | | | | heart failure (HCC) | | + + +--------+ + + | Hospice, External - | Outpatient | Routin | Chronic combined | Ordered: 12/22/2019 | | AMB Referral | Referral | e | systolic and | | | | | | diastolic congestive | | | | | | heart failure (HCC) | | + + +--------+ + + documented as of this encounter Visit Diagnoses + + | Diagnosis | + + | 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
--- OUTSIDE RECORDS SUMMARY | ~2020-03-14 | XMS | Encounter Summary ---
Demographics + + + | Address | [address] | | | [place] [address] | + + + | Home Phone [...] Team Providers + +------+ + | Care Information Security Manager Name | Role | Phone | [...] + + + + | 07/20/ | Home Care | [facility] [place] | Wanda Barbosa, | CASE COMMUNICATION | | 2019 | Visit | [place] [address] | [address] | | | | | [address] [place] | | | | | | [address] | | | | | | [phone] | | | +--------+ + + + [...] | | | | | [place] [address] | | | | | | [phone] | | | | | | | | +--------+ + + + + | 04/13/ | Office | Cardiology | Shawn Michael | | | 2019 | Visit | | MD Marcelino [address] | | | | | | [address] | | | | | | [place] [address] | | | | | | [phone] | | | | | | | [...]
--- OUTSIDE RECORDS SUMMARY | ~2020-03-14 | XMS | Encounter Summary ---
Demographics + + + | Address | [address] | | | [place] [address] | + + + | Home Phone [...] Team Providers + +------+ + | Care Energy Engineer Name | Role | Phone | [...] | +--------+ + + + + | 06/14/ | Telephone | [facility] | Kathleen Escobar, | [facility] H[facility] | | 2019 | | [facility] | [address] [facility] | | | | | [address] | [address] | | | | | [place], [place] | [place], [place] | | | | | [address] | [id number] | | | | | [phone] | | | +--------+ + + + [...] | | 2019 | Visit | | NEUROLOGIST [address] | | | | | | [place] | | | | | | [address] | | | | | | | | +--------+ + + + + | 04/11/ | Appointment | Radiology | Shawn Michael | | | 2019 | | | MD [address] | | | | | | [address] [place] | | | | | | [place] [address] | | | | | | [phone] | | | | | | | | +--------+ + + + + | 04/13/ | Office | Cardiology | Shawn Michael | | 2019 | Visit | | MD [address] | | | | | | [address] [place] | | | | | | [place] [address] | | | | | | [phone] | | | | | | | [...]
--- OUTSIDE RECORDS SUMMARY | ~2020-03-14 | XMS | Encounter Summary ---
Demographics + + + | Address | [address] | | | [place] [address] | + + + | Home Phone [...] Team Providers + +------+ + | Care Instructional Support Assistant Name | Role | Phone | [...] [place] | | | | | | [address] | | | | | | [phone] | | | +--------+ + + + [...] | | | | | [place] [address] | | | | | | [phone] | | | | | | | | +--------+ + + + + | 04/13/ | Office | Cardiology | Shawn Michael | | | 2019 | Visit | | MD Marcelino [address] | | | | | | [address] | | | | | | [place] [address] | | | | | | [phone] | | | | | | | [...]
--- OUTSIDE RECORDS SUMMARY | ~2020-03-14 | XMS | Encounter Summary ---
Demographics + + + | Address | [address] | | | [place] [address] | + + + | Home Phone | | + + + | Preferred Language | Unknown | + + + | Marital Status | | + + + | Evangelical Affiliation | Unknown | + + + | Race | Unknown | + + + | Ethnic Group | Unknown | + + + Author + + + | Author | [facility] | | | and [place] | + + + | Organization | [facility] | | | [...] Providers + +------+ + | Care Senior Mobile Solutions Architect Name | Role | Phone | + +------+ + | Candido Link | PCP | | | MD | | | + +------+ + Encounter Details +--------+ + + + + | Date | Type | Department | Care Team | Description | +--------+ + + + + | 03/13/ | Abstract | [facility] [place] | Provider, | | | 2019 | | GASTROENTEROLOGY | MD [address] | | | | | [address] [facility] | Simba AGUILAR | | | | | [address] | [place] [address] | | | | | [address] | | | | | | [phone] | | | +--------+ + + + [...] [place] | | | | | | [address] | | | | | | | | +--------+ + + + + | 04/11/ | Appointment | Radiology | Shawn Michael | | | 2019 | | | MD [address] | | | | | | [address] [place] | | | | | | [place] [address] | | | | | | [phone] | | | | | | | | +--------+ + + + + | 04/13/ | Office | Cardiology | Shawn Michael | | | 2019 | Visit | | MD [address] | | | | | | [address] [place] | | | | | | [place] [address] | | | | | | [phone] | | | | | | | [...]
--- OUTSIDE RECORDS SUMMARY | ~2020-03-14 | XMS | Encounter Summary ---
Demographics + + + | Address | [address] | | | [place] [address] | + + + | Home Phone [...] Providers + +------+ + | Care Research Geologist Name | Role | Phone | + [...] + + | 01/31/ | Telephone | [facility] [place] | Janel, | Care Coordination | | 2020 | | POPULATION HEALTH | Brittany Schulz RN | | | | | [place] [address] | | | | | | [address] [place] | | | | | | [place] [address] | | | | | | [phone] | | | +--------+ + + + [...] | | 2019 | Visit | | FLEET SERVICE MANAGER [address] | | | | | | [place] | | | | | | [address] | | | | | | | | +--------+ + + + + | 04/11/ | Appointment | Radiology | Shawn Michael | | 2019 | | | MD [address] | | | | | | [address] [place] | | | | | | [place] [address] | | | | | | [phone] | | | | | | | | +--------+ + + + + | 04/13/ | Office | Cardiology | Shawn Michael | | 2019 | Visit | | MD [address] | | | | | | [address] [place] | | | | | | [place] [address] | | | | | | [phone] | | | | | | | [...]
--- OUTSIDE RECORDS SUMMARY | ~2020-03-14 | XMS | Encounter Summary ---
Demographics + + + | Address | [address] | | | [place] [address] | + + + | Home Phone [...] Team Providers + +------+ + | Care Acid Changer Name | Role | Phone | + [...] + + | 02/28/ | Telephone | [facility] [place] | Janel, | Care Coordination | | 2020 | | POPULATION HEALTH | Brittany Schulz RN | | | | | [address] | | | | | | [address] [place] | | | | | | [place] [address] | | | | | | [phone] | | | +--------+ + + + [...] | 03/23/ | Office | Anticoagulation | Ahrris, García L, | | | 2019 | Visit | | BAKER APPRENTICE [address] | | | | | | [place] | | | | | | [address] | | | | | | | | +--------+ + + + + | 04/11/ | Appointment | Radiology | Shawn Michael | | 2019 | | | MD [address] | | | | | | [address] [place] | | | | | | [place] [address] | | | | | | [phone] | | | | | | | | +--------+ + + + + | 04/13/ | Office | Cardiology | Shawn Michael | | 2019 | Visit | | MD [address] | | | | | | [address] [place] | | | | | | [place] [address] | | | | | | [phone] | | | | | | | [...]
--- OUTSIDE RECORDS SUMMARY | ~2020-03-14 | XMS | Encounter Summary ---
Demographics + + + | Address | [address] | | | [place] [address] | + + + | Home Phone [...] Team Providers + +------+ + | Care Warehouse Clerk Name | Role | Phone | [...] | +--------+ + + + + | 06/13/ | Home Care | [facility] [place] | Alban Alcocer | SN SOC (OASIS) | | 2019 | Visit | [place] [address] | [address] | | | | | [address] [place] | | | | | | [address] | | | | | | [phone] | | | +--------+ + + + [...] + + + | Blood Pressure | 126/62 | 06/13/2019 12:45 PM | | | | | PDT | | + + + + + | Pulse | 90 | 06/13/2019 12:45 PM | | | | | PDT | | + + + + + | Temperature | 36.4 C (97.6 F) | 06/13/2019 12:45 PM | | | | | PDT | | + + + + + | Respiratory Rate | 20 | 06/13/2019 12:45 PM | | | | | PDT | | + + + + + | Oxygen Saturation | 97% | 06/13/2019 12:45 PM | | | | | PDT [...] [place] | | | | | | [address] | | | | | | | | +--------+ + + + + | 04/11/ | Appointment | Radiology | Shawn Michael | | | 2019 | | | MD Marcelino [address] | | | | | | [address] | | | | | | [place] [address] | | | | | | [phone] | | | | | | | | +--------+ + + + + | 04/13/ | Office | Cardiology | Shawn Michael | | | 2019 | Visit | | MD Marcelino [address] | | | | | | [address] [place] | | | | | | [place] [address] | | | | | | [phone] | | | | | | | [...] | Visit Type - SN - OASIS START OF CARE | | Discipline - Alf | + + + + +--------+--------+-------+ + | Problem | Description | Start | Status | Goals | Interventio | | | | Date | | | ns | + + +--------+--------+-------+ + | HH SHARED FALLS | | | | - | 2 problem | | Disciplines: | | 06/13/20 | Active | | | | Alf, | | 19 | | | interventio | | Occupational Therapy | | | | | ns | | | | | | | scheduled/d | | | | | | | ocumented | | | | | | | in this | | | | | | | visit | + + +--------+--------+-------+ + | HH SHARED PAIN | | | | - | 2 problem | | Disciplines: | | 06/13/20 | Active | | | | Alf | | 19 | | | interventio | | | | | | | ns | | | | | | | scheduled/d | | | | | | | ocumented | | | | | | | in this | | | | | | | visit | + + +--------+--------+-------+ + | HH SN Medication | | | | - | 2 problem | | Management | | 06/13/20 | Active | | | | Disciplines: | | 19 | | | interventio | | Alf | | | | | ns | | | | | | | scheduled/d | | | | | | | ocumented | | | | | | | in this | | | | | | | visit | + + +--------+--------+-------+ + | Health Promotion | Flu | | | - | 1 problem | | Disciplines: | Vaccine:07/2018 | 06/13/20 | Active | | | | Alf | Pneumonia | 19 | | | interventio | | | Vaccine:12/2018 | | | | n | | | Shingles Vaccine: | | | | scheduled/d | | | 2014 | | | | ocumented | | | | | | | in this | | | | | | | visit | + + +--------+--------+-------+ + | Knowledge Deficit, | | | | - | 1 problem | | Education, | | 06/13/20 | Active | | | | Discharge Plan | | 19 | | | interventio | | Disciplines: | | | | | n | | Alf | | | | | scheduled/d | | | | | | | ocumented | | | | | | | in this | | | | | | | visit | + + +--------+--------+-------+ + | | | | | - | 1 problem | | Oxygenation/Respirat | | 06/13/20 | Active | | | | ory Function | | 19 | | | interventio | | Disciplines: | | | | | n | | Alf | | | | | scheduled/d | | | | | | | ocumented | | | | | | | in this | | | | | | | visit | + + +--------+--------+-------+ + | Respiratory Status | COPD & CHF | | | - | 2 problem | | Disciplines: | | 06/13/20 | Active | | | | Alf | | 19 | | | interventio | | | [...] + + +--------+--------+ + | Assess for fall | Problem: HH SHARED | | | | | risk | FALLS | Comple | | | | | | yoel | | | + + +--------+--------+ + | Written | Problem: SHARED | | | | | Information for Fall | FALLS | Comple | | | | Prevention | | yoel | | | + + +--------+--------+ + | Skilled assessment | Problem: SHARED | | | See clinical | | pain | PAIN | Comple | | assessment in today's | | | | yoel | | contact. | + + +--------+--------+ + | Shared written | Problem: SHARED | | | | | information for pain | PAIN | Comple | | | | | | yoel | | | + + +--------+--------+ + | Assess medications | Problem: SN | | | | | used by patient | Medication | Comple | | | | | Management | yoel | | | + + +--------+--------+ + | Educate patient | Problem: SN | | | | | about medications | Medication | Comple | | | | | Management | yoel | | | + + +--------+--------+ + | Assess | Problem: Health | | | | | immunization status | Promotion | Comple | | | | Description: If | | yoel | | | | patient is 65 or | | | | | | older or if | | | | | | indicated per [facility] | | | | | | Guidelines: YES | | | | | | Have you had the | | | | | | pneumonia vaccine? | | | | | | YES If no, what is | | | | | | the reason? NA May | | | | | | I arrange one for | | | | | | you? NA | | | | | + + [...] | | | | | | place. | | | | | + + +--------+--------+ + | Educate patient | Problem: | | | | | about oxygen | Oxygenation/Respirat | Comple | | | | | ory Function | yoel | | | + + +--------+--------+ + | Assess respiratory | Problem: Respiratory | | | See clinical | | status | Status | Comple | | assessment in today's | | | | yoel | | contact. | + + +--------+--------+ + | Monitor oxygen | Problem: Respiratory | | | O2 saturation obtained | | saturation | Status | Comple | | while patient was | | | | yoel | | sitting after walking | | | | | | greater than 100feet See | | | | | | Vitals form. | + + +--------+--------+ + documented in this encounter"
--- OUTSIDE RECORDS SUMMARY | ~2020-03-14 | XMS | Encounter Summary ---
Demographics + + + | Address | [address] | | | [place] [address] | + + + | Home Phone [...] Team Providers + +------+ + | Care Full Stack Software Engineer Name | Role | Phone [...] [place] | | | | | | [address] | | | | | | [phone] | | | +--------+ + + + [...] [place] | | | | | | [address] | | | | | | | | +--------+ + + + + | 04/11/ | Appointment | Radiology | Shawn Michael | | | 2019 | | | MD Marcelino [address] | | | | | | [address] | | | | | | [place] [address] | | | | | | [phone] | | | | | | | | +--------+ + + + + | 04/13/ | Office | Cardiology | Shawn Michael | | | 2020 | Visit | | MD Marcelino [address] | | | | | | [address] | | | | | | [place] [address] | | | | | | [phone] | | | | | | | [...]
--- OUTSIDE RECORDS SUMMARY | ~2020-03-14 | XMS | Encounter Summary ---
Demographics + + + | Address | [address] | | | [place] [address] | + + + | Home Phone | | + + + | Preferred Language | Unknown | + + + | Marital Status | | + + + | Sabianist Affiliation | Unknown | + + + | Race | Unknown | + + + | Ethnic Group | Unknown | + + + Author + + + | Author | [facility] | | | and [place] | + + + | Organization | [facility] | | [...] Team Providers + +------+ + | Care Director Of Music Therapy Name | Role | Phone | + [...] + + | 06/07/ | Anesthesia | [facility] | Hermilo Alcocer | | | 2019 | Event | [facility] OP | MD [address] | | | | | [address] [place] | | | | | [place], [place] | [place] [address] | | | | | [address] | [phone] | | | | | [phone] | | | +--------+ + + + [...] Alie Aj RN | | IV | [id number] catheter system; | | | | | [...] Patient room; | | | | | Cutter In; Rosio Kim RN; | | | | [...] | | | | | lumen LOT [id number]); 5 Fr, length | | | | [...] [place] | | | | | | [address] | | | | | | | | +--------+ + + + + | 04/11/ | Appointment | Radiology | Shawn Michael | | 2019 | | | MD Marcelino [address] | | | | | | [address] | | | | | | [place] [address] | | | | | | [phone] | | | | | | | | +--------+ + + + + | 04/13/ | Office | Cardiology | Shawn Michael | | | 2020 | Visit | | MD Marcelino [address] | | | | | | [address] [place] | | | | | | [place] [address] | | | | | | [phone] | | | | | | | [...]
--- OUTSIDE RECORDS SUMMARY | ~2020-03-14 | XMS | Encounter Summary ---
Demographics + + + | Address | [address] | | | [place] [address] | + + + | Home Phone [...] Team Providers + +------+ + | Care Debone Processing Supervisor Name | Role | Phone | [...] + + + + | 09/09/ | Telephone | [facility] | Nikolay, | TCM - Hosp [facility] | | 2019 | | MEDICINE [address] [place] [address] | MD Candido | | | | | [facility] | [address] [place] [address] | | | | | [place] [address] | [place] [address] | | | | | [phone] | [phone] | | | | | | | [...] | 2019 | Visit | | SENIOR QUANTITY SURVEYOR [address] | | | | | | [place] | | | | | | [address] | | | | | | | | +--------+ + + + + | 04/11/ | Appointment | Radiology | Shawn Michael | | | 2019 | | | MD [address] | | | | | | [address] [place] | | | | | | [place] [address] | | | | | | [phone] | | | | | | | | +--------+ + + + + | 04/13/ | Office | Cardiology | Shawn Michael | | | 2019 | Visit | | MD [address] | | | | | | [address] [place] | | | | | | [place], [place] [address] | | | | | | [phone] | | | | | | | [...]
--- OUTSIDE RECORDS SUMMARY | ~2020-03-14 | XMS | Encounter Summary ---
Demographics + + + | Address | [address] | | | [place] [address] | + + + | Home Phone [...] Team Providers + +------+ + | Care Aircraft Engine Installer Name | Role | Phone | [...] + + + + | 09/09/ | Home Care | [facility] [place] | Samara Paula | SN DAN[place] ([place]) | | 2019 | Visit | [place] [address] | [address] | | | | | [place] | | | | | | [address] | | | | | | [phone] | | | +--------+ + + + [...] + + + | Blood Pressure | 150/80 | 09/09/2019 9:25 AM | | | | | PST | | + + + + + | Pulse | 96 | 09/09/2019 9:25 AM | | | | | PST | | + + + + + | Temperature | 36.9 C (98.5 F) | 09/09/2019 9:25 AM | | | | | PST | | + + + + + | Respiratory Rate | 20 | 09/09/2019 9:25 AM | | | | | PST | | + + + + + | Oxygen Saturation | 98% | 09/09/2019 9:25 AM | | | | | PST | | + + + + + | Inhaled Oxygen | - | - | | | Concentration | | | | + + + + + | Weight | 59.9 kg (132 lb) | 09/09/2019 9:25 AM | | | | | PST | | + + + + + | Height | 165.1 cm (5' 5") | 09/09/2019 9:25 AM | | | | | PST | | + + + + + | Body Mass Index | 21.97 | 09/09/2019 9:25 AM | | | [...] | | | | | [place] [address] | | | | | | [phone] | | | | | | | | +--------+ + + + + | 04/13/ | Office | Cardiology | Shawn Michael | | | 2020 | Visit | | MD Marcelino [address] | | | | | | [address] | | | | | | [place] [address] | | | | | | [phone] | | | | | | | [...] - [place] DANIELLA | | Discipline - [facility] | + + + + +--------+--------+ + [...] 2018 | | | interventio | | [facility] | infusion. | | | | ns | | | | | | | scheduled/d | | | | | | | ocumented | | | | | | | in this | | | | | | | visit | + + +--------+--------+ + + | Central/Midline IV | Central/Midline IV | | | 1 goal | 5 goal | | Disciplines: | | | Active | linked to | interventio | | [facility] | | 019 | | scheduled/d | [...] 2018 | | | interventio | | [facility] | | | | | n | [...] Active | linked to | | | [facility] | | 2019 | | scheduled/d | interventio | | [...] | interventio | | [facility] | | 2019 | | scheduled/d | n | | | | | | ocumented | scheduled/d | | | | | | interventio | ocumented | | | | | | n | in this | | | | | | | visit | + + +--------+--------+ + + | HH SN Medication | Medication | | | 1 goal | 3 goal | | Management | Management | 08/28/ | Active | linked to | interventio | | Disciplines: | | 2019 | | scheduled/d | ns | | [facility] | | | | ocumented | scheduled/d | | | | | | interventio | ocumented | | | | | | n | in this | | | | | | | visit | + + +--------+--------+ + + | Heart Failure/CHF | Heart Failure/CHF | | | - | 2 problem | | Disciplines: | | 08/28/ | Active | | | | [facility] | | 2018 | | | interventio | | | [...] 1 problem | | Education, | | 08/28/ | Active | | | | Discharge Plan | | 2018 | | | interventio | | Disciplines: | | | | | n | | [facility], | | | | | scheduled/d | | Physical Therapy, | | | | | ocumented | | Occupational | | | | | in this | | Therapy, Case | | | | | visit | | Aquatic Habitat Biologist, Physical | | | | | | | Tile Picker | | | | | | + + +--------+--------+ + + | Respiratory Status | Respiratory Status | | | 1 goal | 1 goal | | Disciplines: | DIAGNOSIS COPD, | | Active | linked to | interventio | | [facility] | CHRONIC OXYGEN USE | 2018 | | scheduled/d | n | | | 3Lpm | | | ocumented | scheduled/d | | | | | | interventio | ocumented | | | | | | n | in this | | | | | | | visit | + + +--------+--------+ + + | Wound Management | Wound Management | | | 1 goal | 1 problem | | Disciplines: | Stage 2 pressure | 08/28/ Resolv | linked to | | | [facility] | ulcer located on | 2018 | ed on | scheduled/d | interventio | | | sacrum | | | ocumented | n | | | | | 019 | interventio | scheduled/d | | | [...] + + +--------+-------+ + | HH SN IV CENTRAL | Central/Midline IV | | No | | | LINE Description: | | | | | | Patient and/or | | | | | | caregiver will | | | | | | verbalize | | | | | | understanding of IV | | | | | | care by 09/10/19. | | | | | | Patient and/or | | | | | | caregiver will | | | | | | verbalize | | | | | | understanding of | | | | | | signs and symptoms | | | | | | of complications and | | | | | | when to report to | | | | | | skilled | | | | | | nurse/physician by | | | | | | 09/16/19 Patient | | | | | | and/or caregiver | | | | | | will demonstrate | | | | | | ability to flush and | | | | | | care for IV by | | | | | | . Central | | | | | | line will be | | | | | | maintained without | | | | | | complications | | | | | | throughout episode | | | | | | of care. | | | | | | Discontinuation of | | | | | | IV antibiotics | | | | | | anticipated | | | | | | by09/23/19 | | | | | | Central line | | | | | | external measurement | | | | | | remains less than | | | | | | 5cm from baseline | | | | | | measurement | | | | | | throughout episode | | | | | | [...] | | | | as presented in [facility] | | | | | | Pt [...] + + +--------+-------+ + | HH SN WOUND | Wound Management | | No | | | MANAGEMENT | | | | | | Description: | | | | | | Achieve wound | | | | | | closure with | | | | | | re-epithelialization | | | | | | throughout episode. | | | | | + + [...] | Instruct pt/CG | | | | infection: and when to | | regarding GI | | | | report to RN/MD . The | | distress and provide | | | | patient and/or caregiver | | [facility] GI teaching | | | | verbalized | | handout. | | | | understanding of signs | | | | | | and symptoms and when to | | | | | | report to RN/MD as | | | | | | instructed:Yes. | + + +--------+--------+ + | Administer IV | Problem: | | | Administered IV | | solutions/medication | Central/Midline | Comple | | solution/medication per | | per MD order: | IVGoal: HH SN IV | yoel | | MD order. See IV log | | Description: | CENTRAL LINE | | | for details. | | Administer IV | | | | | | solution(s) per | | | | | | physician order.1. | | | | | | Solution/Medication: | | | | | | Ertapenim 1 Gm .2. | | | | | | Site: PICC .3. | | | | | | Volume: 100 ml.4. | | | | | | .5. Rate of | | | | | | infusion: | | | | | | 200ml/hr.6. | | | | | | Scheduled Dose | | | | | | Times: daily between | | | | | | 8-9 am.7. via | | | | | | gravity infusion, | | | | | | Instruct family to | | | | | | administer | | | | | + + +--------+--------+ + | Central/Midline IV | Problem: | | | | | Type Description: | Central/Midline | Comple | | | | Type:PICC (Power), | IVGoal: HH SN IV | yoel | | | | Flushing: saline | CENTRAL LINE | | | | | and heparin flush | | | | | + + +--------+--------+ + | Instruct in | Problem: | | | Instructed the | | administration of IV | Central/Midline | Comple | | caregiver in | | solutions/meds per | IVGoal: SN IV | yoel | | administration of IV | | MD order | CENTRAL LINE | | | solution(s)/medication(s | | Description: | | | | ). Patient and/or | | Instruct patient | | | | caregiver able to | | and/or caregiver in | | | | verbalize and | | administration of IV | | | | demonstrate | | | | | | administration of iv | | solution(s)/medicati | | | | antibiotic and flush | | on(s). | | | | PICC line: Yes | + + +--------+--------+ + | Instruct in care | Problem: | | | Thecaregiver was able | | and flushing of | Central/Midline | Comple | | to verbalize and | | central line/IV | IVGoal: SN IV | yoel | | demonstrate care and | | Description: | CENTRAL LINE | | | flushing of central | | Instruct patient | | | | line/IV: Yes | | and/or caregiver in | | | | | | care and flushing of | | | | | | central line/IV. | | | | | + + +--------+--------+ + | Instruct in signs | Problem: | | | Instructed the patient | | and symptoms of | Central/Midline | Comple | | and caregiver in signs | | infection and | IVGoal: SN IV | yoel | | and symptoms of | | related procedures | CENTRAL LINE | | | infection:, infection | | Description: | | | | prevention and when to | | Instruct patient | | | | notify RN/MD. | | and/or caregiver in | | | | Patient and/or caregiver | | signs and symptoms | | | | able to verbalize | | of infection and | | | | understanding of and | | emergency procedures | | | | demonstrate procedures | | related to IV | | | | related to IV therapy as | | therapy and when to | | | | instructed: Yes | | notify skilled nurse | | | | | | or physician. | | | | | + + +--------+--------+ + | Assess depression | Problem: SHARED | | | | [...] | | | | | | to [facility] for | | | | | | [...] risk | Problem: SHARED | | | | | identified | FALLS | Comple | | | | Description: RN to | | yoel | | | | assess patient | | | | | | history of falls [...] on medication | | Description: | ManagementGoal: HH | yoel | | administration, | | [...] | | | | | | of medication(s) as | | | | | | instructed: Yes | + + +--------+--------+ + | Skilled assessment | Problem: HH SN | | | medication | | medications | Medication | Comple | | reconciliation done, no | | Description: RN to | ManagementGoal: HH | yoel | | problems noted, other | | reconcile and | SN MEDICATION | | | than patients sone | | instruct pt/CG | MANAGEMENT | | | states he is not going | | regarding medication | | | | to change the carvedelol | | effects, side | | | | dose per DC | | effects, dose, route | | | | instruction, he states | | and when to notify | | | | he contacted patients | | MD/RN | | | | automation/controls manager in [place] | | | | | | [place]., and was notified | | | | | | not ot increase the dose | + + +--------+--------+ + | Assess [...] | | | | | Management | Failure/CHF | Comple | | | | Description: | | yoel | | | | Instruct the patient | | | | | | and/or caregiver in | | | | | | strategies to | | | | | | manage CHF. | | | | | | Instruct Pt/CG | | | | | | regarding CHF | | | | | | disease process and | | | | | | implications of CHF, | | | | | | and provide [facility] | | | | | | CHF teaching | | | | | | handout. Instruct | | | | | | pt to weigh Daily | | | | | | and Keep Log . RN | | | | | | to instruct patient | | | | | | to notify MD/RN of | | | | | | 2-3 pound weight | | | | | | gain in a 24 hour | | | | | | period, or 5 pound | | | | | | weight gain in 1 | | | | | | week. Baseline | | | | | | weight 119lbs . | | | | | | Instruct low sodium | | | | | | diet and provide | | | | | | [facility] teaching | | | | | | handouts. | | | | | + + +--------+--------+ + | Discharge planning | Problem: Knowledge | | | | | | Deficit, Education, | Comple | | | | | Discharge Plan | yoel | | | + + +--------+--------+ + | Assess respiratory | Problem: Respiratory | | | See clinical | | status | StatusGoal: SN | Comple | | assessment in today's | | Description: | RESPIRATORY | yoel | | contact. | | Assess pt for S/S of | | | | | | exacerbation of | | | | | | COPD Assess pulse | | | | | | ox at each home | | | | | | visit notify MD for | | | | | | Oxygen saturation < | | | | | | 90%. | | | | | + + +--------+--------+ + | HH Assess | Problem: Wound | | | | | Wound/Skin For | ManagementGoal: | Comple | | | | Progression | SN WOUND MANAGEMENT | yoel | | | | Description: | | | | | | Assess wound and/or | | | | | | skin for healing | | | | | | progression. | | | | | + + +--------+--------+ + | Instruct | Problem: Wound | | | | | prevention of | Management | Comple | | | | pressure ulcers | | yoel | | | | Description: | | | | | | Instruct the patient | | | | | | and/or caregiver in | | | | | | the use of pressure | | | | | | relieving | | | | | | devices/strategies: | | | | | | moisturizer, | | | | | | moisture barrier and | | | | | | turn q 2 hours. | | | | | + + +--------+--------+ + documented in this encounter
--- OUTSIDE RECORDS SUMMARY | ~2020-03-14 | XMS | Encounter Summary ---
Demographics + + + | Address | [address] | | | [place] [address] | + + + | Home Phone | | + + + | Preferred Language | Unknown | + + + | Marital Status | | + + + | Taoism Affiliation | Unknown | + + + | Race | Unknown | + + + | Ethnic Group | Unknown | + + + Author + + + | Author | [facility] | | | and [place] | + + + | Organization | [facility] | [...] Team Providers + +------+ + | Care School Bus Attendant Name | Role | Phone | + +------+ + | Candido Link | PCP | | | MD | | | + +------+ + Reason for Visit +--------+ + | Reason | Comments | +--------+ + | Other | Oxygen supplier | +--------+ + Encounter Details +--------+ + + + + | Date | Type | Department | Care Team | Description | +--------+ + + + + | 06/23/ | Telephone | [facility] | Nikolay, | Other (Oxygen | | 2019 | | MEDICINE [address] | MD Candido | supplier) | | | | [facility] | [address] [place] [address] | | | | | [place] [address] | [place] [address] | | | | | [phone] | [phone] | | | | | | | [...] | | 2019 | Visit | | TOOTH CUTTER CLUTCH [address] | | | | | | [place] | | | | | | [address] | | | | | | | | +--------+ + + + + | 04/11/ | Appointment | Radiology | Shawn Michael | | | 2019 | | | MD [address] | | | | | | [address] [place] | | | | | | [place] [address] | | | | | | [phone] | | | | | | | | +--------+ + + + + | 04/13/ | Office | Cardiology | Shawn Michael | | | 2019 | Visit | | MD [address] | | | | | | [address] [place] | | | | | | [place], [place] [address] | | | | | | [phone] | | | | | | | [...]
--- OUTSIDE RECORDS SUMMARY | ~2020-03-14 | XMS | Encounter Summary ---
Demographics + + + | Address | [address] | | | [place] [address] | + + + | Home Phone [...] Providers + +------+ + | Care Sales Team Manager Name | Role | Phone | [...] | +--------+ + + + + | 10/08/ | Home Care | [facility] [place] | Sam Quintanilla, | PT REPEAT VISIT | | 2020 | Visit | [place] [address] | PHARMACEUTICAL OPERATOR [address] | | | | | [place] | [place] | | | | | [address] | [address] | | | | | [phone] | | | +--------+ + + + [...] [place] | | | | | | [address] | | | | | | | | +--------+ + + + + | 04/11/ | Appointment | Radiology | Shawn Michael | | | 2019 | | | MD Marcelino [address] | | | | | | [address] | | | | | | [place] [address] | | | | | | [phone] | | | | | | | | +--------+ + + + + | 04/13/ | Office | Cardiology | Shawn Michael | | | 2019 | Visit | | MD Marcelino [address] | | | | | | [address] [place] | | | | | | [place] [address] | | | | | | [phone] | | | | | | | [...] | | | | Evaluate and | PT GAIT/STAIRS | yoel | | | [...]
--- OUTSIDE RECORDS SUMMARY | ~2020-03-14 | XMS | Encounter Summary ---
Demographics + + + | Address | [address] | | | [place] [address] | + + + | Home Phone | | + + + | Preferred Language | Unknown | + + + | Marital Status | | + + + | Congregational Affiliation | Unknown | + + + [...] Team Providers + +------+ + | Care Structural Mill Supervisor Name | Role | Phone | [...] Visit | [place] [address] | PIER HAND HELPER [address] | | | | | [place] | [place] | | | | | [address] | [address] | | | | | [phone] | | | +--------+ + + + [...] | | | | | [place] [address] | | | | | | [phone] | | | | | | | | +--------+ + + + + | 04/13/ | Office | Cardiology | Shawn Michael | | | 2019 | Visit | | MD Marcelino [address] | | | | | | [address] [place] | | | | | | [place] [address] | | | | | | [phone] | | | | | | | [...]
--- OUTSIDE RECORDS SUMMARY | ~2020-03-14 | XMS | Encounter Summary ---
Demographics + + + | Address | [address] | | | [place] [address] | + + + | Home Phone [...] Team Providers + +------+ + | Care Edge Bonder Name | Role | Phone | + [...] [place] | | | | | | [address] | | | | | | [phone] | | | +--------+ + + + [...] | | | | | [place] [address] | | | | | | [phone] | | | | | | | | +--------+ + + + + | 04/13/ | Office | Cardiology | Shawn Michael | | | 2019 | Visit | | MD Marcelino [address] | | | | | | [address] | | | | | | [place] [address] | | | | | | [phone] | | | | | | | [...]
--- OUTSIDE RECORDS SUMMARY | ~2020-03-14 | XMS | Encounter Summary ---
Demographics + + + | Address | [address] | | | [place] [address] | + + + | Home Phone | | + + + | Preferred Language | Unknown | + + + | Marital Status | | + + + | Taoism Affiliation | Unknown | + + + | Race | Unknown | + + + | Ethnic Group | Unknown | + + + Author + + + | Author | [facility] | | | and [place] | + + + | Organization | [facility] | | [...] Team Providers + +------+ + | Care Glassware Engraver Name | Role | Phone | + [...] + + | 03/06/ | Telephone | [facility] | Nikolay, | Medication Refill | | 2019 | | MEDICINE [address] | MD Candido | | | | | [facility] | [address] [place] [address] | | | | | [place] [address] | [place] [address] | | | | | [phone] | [phone] | | | | | | | [...] | | 2019 | Visit | | IRRIGATION FOREMAN [address] | | | | | | [place] | | | | | | [address] | | | | | | | | +--------+ + + + + | 04/11/ | Appointment | Radiology | Shawn Michael | | | 2019 | | | MD [address] | | | | | | [address] [place] | | | | | | [place] [address] | | | | | | [phone] | | | | | | | | +--------+ + + + + | 04/13/ | Office | Cardiology | Shawn Michael | | | 2019 | Visit | | MD [address] | | | | | | [address] [place] | | | | | | [place] [address] | | | | | | [phone] | | | | | | | [...]
--- OUTSIDE RECORDS SUMMARY | ~2020-03-14 | XMS | Encounter Summary ---
Demographics + + + | Address | [address] | | | [place] [address] | + + + | Home Phone [...] Team Providers + +------+ + | Care Botany Professor Name | Role | Phone | [...] + + | 09/14/ | Office | [facility] | Yana-Lani, | Acute diverticulitis | | 2019 | Visit | MEDICINE [address] [place] [address] | MD Candido | (Primary Dx); | | | | [facility] | [address] [place] [address] | Sepsis, due to | | | | [place] [address] | [place] [address] | unspecified | | | | [phone] | [phone] | organism, | | | | | | unspecified whether | | | | | | acute organ | | | | | | dysfunction present | | | | | | ([facility]); Generalized | | | | | | [...] Patient Instructions Patient Instructions Mary Alice David, Formula Technician - 09/14/2019 10:00 AM PSTRememb er to please get a consult note/recommendation from [facility] to help you continue you [...] She has seen a pain specialist at [facility] pain clinic in [place] a few weeks ago. She did not [...] on 3 L nasal cannula chronically at [facility], secondary to COPD 4. 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 History of complicated TAVR (TAVR within [...] Pain. Dispense: 100 tablet; Refill: 0 4. [facility] prescription opiate use -I discussed with her and her son the importance of following up with the [facility] to get a consult [...] Flex Sig; Surgeon: Edwin Stoddard MD; Location: [facility] PROCEDURE UNIT HYSTERECTOMY NIRMAL AND BSO TONSILLECTOMY AND ADENOIDECTOMY UPPER GASTROINTESTINAL ENDOSCOPY N/A 06/07/2019 Procedure: EGD; Surgeon: Edwin Stoddard MD; Location: [facility] MEDICAL PROCEDURE UNIT UPPER GASTROINTESTINAL ENDOSCOPY N/A 08/20/2019 Procedure: EGD; Surgeon: John Grimes MD; Location: [facility] MEDICAL PROCEDURE UNIT CURRENT MEDICATIONS [...] 1. Parts of this documentwere created using [employer] speech recognition software. As a resu lt, [...] | | 2019 | Visit | | [address] | | | | | | [place] | | | | | | [address] | | | | | | | | +--------+ + + + + | 04/11/ | Appointment | Radiology | Shawn Michael | | | 2020 | | | MD [address] | | | | | | [address] [place] | | | | | | [place] [address] | | | | | | [phone] | | | | | | | | +--------+ + + + + | 04/13/ | Office | Cardiology | Shawn Michael | | | 2020 | Visit | | MD [address] | | | | | | [address] [place] | | | | | | [place] [address] | | | | | | [phone] | | | | | | | [...] osteoarthrosis, unspecified site | + + | moth exterminator prescription opiate use | + + documented in this encounter Additional Health Concerns + + + + | Infection | Noted Time | Resolved Time | + + + + | Methicillin-resistant Staphylococcus aureus | 06/08/2019 9:39 AM | | | | PDT | | + + + + documented as of this encounter"
--- OUTSIDE RECORDS SUMMARY | ~2020-03-14 | XMS | Encounter Summary ---
Demographics + + + | Address | [address] | | | [place] [address] | + + + | Home Phone [...] Team Providers + +------+ + | Care Client Application Support Engineer Name | Role | Phone | [...] [place] | | | | | | [address] | | | | | | [phone] | | | +--------+ + + + [...] | | | | | [place] [address] | | | | | | [phone] | | | | | | | | +--------+ + + + + | 04/13/ | Office | Cardiology | Shawn Michael | | | 2019 | Visit | | MD Marcelino [address] | | | | | | [address] | | | | | | [place] [address] | | | | | | [phone] | | | | | | | [...]
--- OUTSIDE RECORDS SUMMARY | ~2020-03-14 | XMS | Encounter Summary ---
Demographics + + + | Address | [address] | | | [place] [address] | + + + | Home Phone [...] Team Providers + +------+ + | Care Bung Sewer Name | Role | Phone | [...] Description | +--------+--------+ + + + | 12/12/ | Refill | [facility] | Lina Correa | Medication Refill | | 2020 | | PULMONARY [address] | MD Jan [address] | | | | | [address], | [address] [place] | | | | | [place] [address] | [place] [address] | | | | | [phone] | [phone] | | | | | | | [...] | | 2019 | Visit | | BIOMEDICAL ENGINEERING AIDE [address] | | | | | | [place] | | | | | | [address] | | | | | | | | +--------+ + + + + | 04/11/ | Appointment | Radiology | Shawn Michael | | | 2019 | | | MD [address] | | | | | | [address] [place] | | | | | | [place] [address] | | | | | | [phone] | | | | | | | | +--------+ + + + + | 04/13/ | Office | Cardiology | Shawn Michael | | | 2019 | Visit | | MD [address] | | | | | | [address] [place] | | | | | | [place], [place] [address] | | | | | | [phone] | | | | | | | [...]
--- OUTSIDE RECORDS SUMMARY | ~2020-03-14 | XMS | Encounter Summary ---
Demographics + + + | Address | [address] | | | [place] [address] | + + + | Home Phone [...] Providers + +------+ + | Care Supervisor Rice Milling Name | Role | Phone | + +------+ + | Kathleen Escobar MD | PCP | | + +------+ + Reason for Visit + + + | Reason | Comments | + + + | Establish Care | | + + + Encounter Details +--------+ + + + + | Date | Type | Department | Care Team | Description | +--------+ + + + + | 06/02/ | Telephone | [facility] | Nikolay, | Establish Care | | 2019 | | [address] | MD Candido | | | | | [facility] | [address] [place] [address] | | | | | [place] [address] | [place] [address] | | | | | [phone] | [phone] | | | | | | | [...] | | 2019 | Visit | | APPLICATION SYSTEMS ENGINEER [address] | | | | | | [place] | | | | | | [address] | | | | | | | | +--------+ + + + + | 04/11/ | Appointment | Radiology | Shawn Michael | | | 2019 | | | MD [address] | | | | | | [address] [place] | | | | | | [place] [address] | | | | | | [phone] | | | | | | | | +--------+ + + + + | 04/13/ | Office | Cardiology | Shawn Michael | | | 2019 | Visit | | MD [address] | | | | | | [address] [place] | | | | | | [place] [address] | | | | | | [phone] | | | | | | | | +--------+ + + + + documented as of this encounter Visit Diagnoses Not on filedocumented in this encounter"
--- OUTSIDE RECORDS SUMMARY | ~2020-03-14 | XMS | Encounter Summary ---
Demographics + + + | Address | [address] | | | [place] [address] | + + + | Home Phone [...] Team Providers + +------+ + | Care Home Health Caregiver Name | Role | Phone | + [...] + | 08/19/ | Telephone | [facility] | Nikolay, | Medication | | 2019 | | MEDICINE [address] | MD Candido | Management (pain | | | | Street [place] | [address] [place] | medication); Chest | | | | [place] [address] | [place] [address] | Pain | | | | [phone] | [phone] | | | | | | | [...] | | 2019 | Visit | | MACHINE EDGE BANDER [address] | | | | | | [place] | | | | | | [address] | | | | | | | | +--------+ + + + + | 04/11/ | Appointment | Radiology | Shawn Michael | | | 2019 | | | MD [address] | | | | | | [address] [place] | | | | | | [place], [place] [address] | | | | | | [phone] | | | | | | | | +--------+ + + + + | 04/13/ | Office | Cardiology | Shawn Michael | | | 2019 | Visit | | MD [address] | | | | | | [address] [place] | | | | | | [place] [address] | | | | | | [phone] | | | | | | | [...]
--- OUTSIDE RECORDS SUMMARY | ~2020-03-14 | XMS | Encounter Summary ---
Demographics + + + | Address | [address] | | | [place] [address] | + + + | Home Phone [...] Team Providers + +------+ + | Care Sr. 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
--- OUTSIDE RECORDS SUMMARY | ~2020-03-14 | XMS | Encounter Summary ---
Demographics + + + | Address | [address] | | | [place] [address] | + + + | Home Phone | | + + + | Preferred Language | Unknown | + + + | Marital Status | | + + + | Jehovah'S Witness Affiliation | Unknown | + + + | Race | Unknown | + + + | Ethnic Group | Unknown | + + + Author + + + | Author | [facility] | | | and [place] | + + + | Organization | [facility] | | [...] Team Providers + +------+ + | Care Tour Driver Name | Role | Phone | + +------+ + | Candido Link | PCP | | | MD | | | + +------+ + Reason for Visit + + + | Reason | Comments | + + + | Shortness of Breath | | + + + | Cough | | + + + Auth/Cert +--------+--------+ [...] + + + + | 12/11/ | Emergency | [facility] | Dmitry, | Pneumonia due to | | 2019 | | [facility] | Mir Dahl MD [address] | infectious organism, | | | | CENTER [address] | [address] [place] | unspecified | | | | [place], [place] | [place] [address] | laterality, | | | | [address] | [phone] | unspecified part of | | | | [phone] | | lung (Primary Dx) | +--------+ + + + + Social History + + + +--------+ + | Tobacco Use | Types | Packs/Day | Years | Date | | | | | Used | | + + + +--------+ + | Former Smoker | Cigarettes | | | 1944 - 1968 | + + + +--------+ [...] + + + | Blood Pressure | 121/51 | 12/12/2019 3:28 PM | | | | | PDT | | + + + + + | Pulse | 82 | 12/12/2019 3:28 PM | | | | | PDT | | + + + + + | Temperature | 36.4 C (97.5 F) | 12/12/2019 2:39 PM | | | | | PDT | | + + + + + | Respiratory Rate | 26 | 12/12/2019 3:28 PM | | | | | PDT | | + + + + + | Oxygen Saturation | 100% | 12/12/2019 3:28 PM | | | | | PDT | | + + + + + | Inhaled Oxygen | - | - | | | Concentration | | | | + + + + + | Weight | 53.5 kg (118 lb) | 12/12/2019 2:39 PM | | | | | PDT | | + + + + + | Height | 165.1 cm (5' 5") | 12/12/2019 2:39 PM | | | | | PDT | | + + + + + | Body Mass Index | 19.64 | 12/12/2019 2:39 PM | | | | | PDT | | + + + + + documented in this encounter Discharge Instructions Mir May MD - 12/12/2019Take antibiotics as prescribed and follo w up with your doctor documented in this encounter Medications at Time of Discharge + + + +---------+ + + | Medication | Sig | Dispensed | Refills | Start | End Date | | | | | | Date | | + + + +---------+ + + | albuterol 2.5 mg/3 | Take 3 mLs by | 60 vial | 0 | 12/10/19 | | | mL nebulizer | nebulization [...] | | | | | | | Julienne garzon | | | | | | + [...] + + + +---------+ + + | clindamycin | Take 1 capsule by | 28 | 0 | 12/12/19 | | | (CLEOCIN) 300 MG | mouth 4 times daily | capsule | | 20 | 0 | | capsule | for 7 days. | | | | | + [...] tablet by | 120 | 0 | 12/09/19 | | | HYDROcodone-acetamin | mouth every [...] | | 2019 | Visit | | GAS ADJUSTER [address] | | | | | | [place] | | | | | | [address] | | | | | | | | +--------+ + + + + | 04/11/ | Appointment | Radiology | Shawn Michael | | | 2019 | | | MD [address] | | | | | | [address] [place] | | | | | | [place] [address] | | | | | | [phone] | | | | | | | | +--------+ + + + + | 04/13/ | Office | Cardiology | Shawn Michael | | | 2019 | Visit | | MD [address] | | | | | | [address] [place] | | | | | | [place] [address] | | | | | | [phone] | | | | | | | | +--------+ + + + + + +------+--------+ + + | Name | Type | Priori | Associated Diagnoses | Date/Time | | | | ty | | | + +------+--------+ + + | ED INFORMATION | MICHAEL | Routin | | 12/12/2019 2:35 PM | | EXCHANGE | | e | | PDT | + +------+--------+ + + documented as of this encounter Procedures + +--------+ + + + | Procedure Name | Priori | Date/Time | Associated Diagnosis | Comments | | | ty | | | | + +--------+ + + + | XR CHEST AP PORTABLE | STAT | 12/12/2019 | | Results for this | | | | 3:21 PM | | procedure are in the | | | | PDT | | results section. | + +--------+ + + + documented in this encounter Results XR Chest AP Portable (12/12/2019 3:21 PM PDT) + + | Specimen | + + | | + + + + + | Impressions | Performed At | + + + | Stable subtle thickening of the central bronchovascular/interstitial | [facility] | | markings likely representing mild pulmonary vascular congestion. | | | Superimposed pulmonary infection cannot be excluded. Dictated and | | | Signed by: Bartolome Neff MD Electronically signed: 12/12/2019 8:00 | | | PM | | + + + + + + | Narrative | Performed At | + + + | XR CHEST AP PORTABLE 12/12/2019 3:13 PM HISTORY: SHORTNESS OF | [facility] | | BREATH COUGH. COMPARISON: 12/06/2019 Findings: Aortic | | | calcifications are present. No evidence of pneumothorax. Mild of the | | | bronchovascular markings. Lungs are slightly hyperexpanded. Mild | | | diffuse interstitial thickening. No acute osseous findings. Evidence | | | of prior aortic valve replacement. No acute osseous findings. | | + + + + + | Procedure Note | + + | Kobe, Rad Results In - 12/12/2019 8:04 PM PDT XR CHEST AP PORTABLE 12/12/2019 3:13 PM | | | | HISTORY: SHORTNESS OF BREATH | | COUGH. | | | | COMPARISON: 12/06/2019 | | | | Findings: Aortic calcifications are present. No evidence of pneumothorax. Mild | | of the bronchovascular markings. Lungs are slightly hyperexpanded. Mild diffuse | | interstitial thickening. No acute osseous findings. Evidence of prior aortic | | valve replacement. No acute osseous findings. | | | | IMPRESSION: | | Stable subtle thickening of the central bronchovascular/interstitial markings | | likely representing mild pulmonary vascular congestion. | | | | Superimposed pulmonary infection cannot be excluded. | | | | Dictated and Signed by: Bartolome Neff MD | | Electronically signed: 12/12/2019 8:00 PM | + + + +---------+ + + | Performing | Address | City/State/Zipcode | Phone Number | | Organization | | | | + +---------+ + + | [facility] | | | | + +---------+ + + documented in this encounter Visit Diagnoses + + | Diagnosis | + + | Pneumonia due to infectious organism, unspecified laterality, unspecified part of lung | | - Primary | + + documented in this encounter Administered Medications + +--------+ +--------+------+------+ | Medication Order | MAR | Action | Dose | Rate | Site | | | Action | Date | | | | + +--------+ +--------+------+------+ | clindamycin (CLEOCIN) capsule | Given | 12/12/19 | 300 mg | | | | 300 mg 300 mg, Oral, ONCE, Sun | | 20 3:33 | | | | | 12/12/19 at 1525, For 1 dose, | | PM PDT | | | | | Indications: pneumonia. MRSA | | | | | | | screen positive | | | | | | + [...]
--- OUTSIDE RECORDS SUMMARY | ~2020-03-14 | XMS | Encounter Summary ---
Demographics + + + | Address | [address] | | | [place] [address] | + + + | Home Phone [...] Team Providers + +------+ + | Care Guidance Counselor Name | Role | Phone | + [...] RN | SN REPEAT VISIT | | 2018 | Visit | [place] [address] | | | | | | ST [place] | | | | | | [address] | | | | | | [phone] | | | +--------+ + + + [...] + + + | Blood Pressure | 120/58 | 09/20/2019 1:52 PM | | | | | PST | | + + + + + | Pulse | 96 | 09/20/2019 1:52 PM | | | | | PST | | + + + + + | Temperature | 35.8 C (96.4 F) | 09/20/2019 1:52 PM | | | | | PST | | + + + + + | Respiratory Rate | 20 | 09/20/2019 1:52 PM | | | | | PST | | + + + + + | Oxygen Saturation | 97% | 09/20/2019 1:52 PM | | | | | PST [...] | | | | | [place] [address] | | | | | | [phone] | | | | | | | | +--------+ + + + + | 04/13/ | Office | Cardiology | Shawn Michael | | | 2019 | Visit | | MD Marcelino [address] | | | | | [address] [place] | | | | | | [place] [address] | | | | | | [phone] | | | | | | | [...] - REPEAT VISIT | | Discipline - Nursing Home | + + + + +--------+--------+ + [...] 2018 | | | interventio | | Nursing Home | infusion. | | | | ns | | | | | | | scheduled/d | | | | | | | ocumented | | | | | | | in this | | | | | | | visit | + + +--------+--------+ + + | Central/Midline IV | Central/Midline IV | | | 1 goal | 1 goal | | Disciplines: | | | Active | linked to | interventio | | Nursing Home | | 019 | | scheduled/d | [...] Active | linked to | | | Nursing Home | | 2019 | | scheduled/d | [...] Diffuse | | | 1 goal | 2 goal | | Disciplines: | osteoarthritis pain | 08/28/ | Active | linked to | interventio | | Nursing Home | | 2019 | | scheduled/d | [...] | | 2018 | | scheduled/d | ns | | Nursing Home | | | | ocumented | scheduled/d [...] 08/28/ | Active | | | | Nursing Home | | 2018 | | | interventio [...] | linked to | interventio | | Nursing Home | CHRONIC OXYGEN USE | 2019 | [...] Management | | | 1 goal | 2 goal | | Disciplines: | | | Active | linked to | interventio | | Nursing Home | | 019 | | scheduled/d | [...] | | as presented in [facility] | | | | | | Pt [...] Instruct pt/CG | | | | infection: possiable at | | regarding GI | | | | PICC line site and when | | distress and provide | | | | to report to RN/MD . The | | [facility] GI teaching | | | | patient and/or | | handout. | | | | caregiver verbalized | | | | | | understanding of signs | | | | | | and symptoms and when to | | | | | | report to RN/MD as | | | | | | instructed:Yes. | + + +--------+--------+ + | Instruct in signs | Problem: | | | Instructed the patient | | and symptoms of | Central/Midline | Comple | | and caregiver in signs | | infection and | IVGoal: SN IV | yoel | | and symptoms of | | related procedures | CENTRAL LINE | | | infection:. Patient | | Description: | | | | and/or caregiver able to | | Instruct patient | | | | verbalize understanding | | and/or caregiver in | | | | of and demonstrate | | signs and symptoms | | | | procedures related to IV | | of infection and | | | | therapy as instructed: | | emergency procedures | | | | Yes | | related to IV | | | | | | therapy and when to | | | | | | notify skilled nurse | | [...] +--------+--------+ + | Fall risk | Problem: HH SHARED | | | | | identified [...] + + +--------+--------+ + | Instruct in Pain | Problem: SHARED | | | | | Management per MD | PAINGoal: PAIN | Comple | | | | Order Description: | | yoel | | | | Monitor pain and | | | | | | instruct the patient | | | | | | and/or caregiver in | | | | | | management of pain | | | | | | medication per MD | | | | | | order. | | | | | + + [...] | | | | | | of NOrco medication(s) | | | | | | as instructed: Yes | + + +--------+--------+ + | Skilled assessment | Problem: HH SN | | | | | medications | Medication | Comple | | | | Description: RN to | ManagementGoal: HH | yoel | | | | reconcile and | SN MEDICATION [...] care | Problem: Wound | | | Dressing change to | | Description: Wound | ManagementGoal: HH | | | left and leg performed | | Type: skin tear | SN WOUND MANAGEMENT | | | by SN. Old dressing | | Location: LLE wound | | | | removed. Well tolerated | | care: Cleanse with | | | | by patient.. Site | | Normal saline, apply | | | | saline. Patted dry. | | nonadherent gauze, | | | | Applied dry and fluff. | | cover with kerlex, | | | | Secured with paper tape. | | and secure with | | | | See Wound Assessment | | angela. Frequency:1-2 | | | | form for measurements | | X week PRN | | | | and status of wound. | + + +--------+--------+ + documented in this encounter"
--- OUTSIDE RECORDS SUMMARY | ~2020-03-14 | XMS | Encounter Summary ---
Demographics + + + | Address | [address] | | | [place] [address] | + + + | Home Phone | | + + + | Preferred Language | Unknown | + + + | Marital Status | | + + + | Jew Affiliation | Unknown | + + + | Race | Unknown | + + + | Ethnic Group | Unknown | + + + Author + + + | Author | [facility] | | | and [place] | + + + | Organization | [facility] | | [...] Team Providers + +------+ + | Care Scullion Chief Name | Role | Phone | + [...] | +--------+ + + + + | 08/20/ | Anesthesia | [facility] | Hermilo Alcocer | | | 2019 | Event | [facility] | MD [address] | | | | | [address] | [address] [place] | | | | | [place], [place] | [place] [address] | | | | | [address] | | | | | | [phone] | | | +--------+ + + + + Anesthesia Record + + + + + | Procedure Name | Responsible | Anesthesia Start | Anesthesia Stop Time | | | Anesthesiologist | Time | | + + + + + | BETSY EtienneN/A Ronnie) | Hermilo Matias | 08/20/19 0744 | 08/20/19 0758 | | | MD Leodan | | | + + + + + +----+---+ + + | Da | T | Event | Comment | | te | i | | | | | m | | | | | e | | | +----+---+ + + | 11 | 0 | An Checkout | Pre-use anesthesia machine/equipment checkout. | | /1 | 7 | | | | 5/ | 3 | | | | 20 | 6 | | | | 19 | | | | +----+---+ + + | | 0 | First | | | | 7 | Inc/Proc St | | | | 3 | | | | | 8 | | | +----+---+ + + | | 0 | | | | | 7 | | | | | 4 | | | | | 3 | | | +----+---+ + + | | 0 | An Start | Reassessment prior to anesthesia induction/procedure. | | | 7 | | | | | 4 | | | | | 4 | | | +----+---+ + + | | 0 | An Start | | | | 7 | Data | | | | 4 | | | | | 5 | | | +----+---+ + + | | 0 | AN | Per surgeon request | | | 7 | Antibiotic | | | | 4 | declined | | | | 8 | | | +----+---+ + + | | 0 | Preoxygenat | | | | 7 | ed | | | | 4 | | | | | 8 | | | +----+---+ + + | | 0 | An | | | | 7 | Induction | | | | 4 | | | | | 8 | | | +----+---+ + + | | 0 | Pre-Procedu | | | | 7 | ral Timeout | | | | 4 | Completed | | | | 8 | | | +----+---+ + + | | 0 | Breathing | | | | 7 | Spontaneous | | | | 5 | ly | | | | 3 | | | +----+---+ + + | | 0 | an stop | | | | 7 | data | | | | 5 | | | | | 3 | | | +----+---+ + + | | 0 | An Stop | Patient handed off to recovery nurse. | | | 5 | | | | | 8 | | | +----+---+ + + +------+ | Meds | +------+ + +--------+ | Name | Total | + +--------+ | propofol | 60 mg | + +--------+ | lidocaine 2% | 50 mg | + +--------+ | LR (Infusion) | 100 mL | + +--------+ + + | No agents on file. | + + + + | No blood administrations on file. | + + +--------+ + + + | Type | Details | Placement | Removal | +--------+ + + + | Brace/ | 06/29/19; 0036; other (see | 06/29/19 0036 by | 10/27/19 0000 by | | Orthot | comments) (long arm orthoglass); | Alisson Gambino RN | Rocío Pires RN | | ic/Ort | left; elbow; removed in past; | | | | hosis | 10/27/19 | | | +--------+ + + + | Periph | 08/19/19; 1421; Right; Forearm; | 08/19/19 142 by | 08/22/19 07 by | | eral | [id number] catheter system; | Yahir Groves RN | Zee Tineo, | | IV | 24 gauge; Hematology, Chemistry; | | RN | | | removed in past; 08/22/19; 07 | | | +--------+ + + + | Periph | 08/19/19; 2056; Left; Hand; | 08/19/192056 by | 08/21/19 114 by Rosio | | lucy | [id number]-[id number] catheter system; | Yahir Groves RN | Trevor Amezcua, | | IV | 22 gauge; lumen/catheter not | | Technologist | | | patent; 08/21/19; 1142 | | | +--------+ + + + [...] [place] | | | | | | [address] | | | | | | | | +--------+ + + + + | 04/11/ | Appointment | Radiology | Shawn Michael | | 2019 | | | MD [address] | | | | | | [address] [place] | | | | | | [place] [address] | | | | | | [phone] | | | | | | | | +--------+ + + + + | 04/13/ | Office | Cardiology | Shawn Michael | | | 2020 | Visit | | MD [address] | | | | | | [address] [place] | | | | | | [place] [address] | | | | | | [phone] | | | | | | | [...] ringers (LR) infusion | New Bag | 08/20/20 | | | | | Intravenous, CONTINUOUS PRN, | | 19 7:44 | | | | | Starting 08/20/19 at 0744, | | AM PST | | | | | Anesthesia Intra-op | | | | | | + +---------+ +------+------+------+ +---+---+ | | | +---+---+ + +-------+ +-------+---+---+ | lidocaine (PF) 2% injection | Given | 08/20/20 | 50 mg | | | | Intravenous, PRN, Starting Fri | | 19 7:48 | | | | | 08/20/19 at 0748, Anesthesia | | AM PST | | | | | Intra-op | | | | | | + +-------+ +-------+---+---+ +---+---+ | | | +---+---+ + +-------+ +-------+---+---+ | propofol (DIPRIVAN) injection | Given | 08/20/20 | 60 mg | | | | Intravenous, PRN, Starting Fri | | 19 7:48 | | | | | 08/20/19 at 0748, Anesthesia | | AM PST | | | | | Intra-op | [...]
--- OUTSIDE RECORDS SUMMARY | ~2020-03-14 | XMS | Encounter Summary ---
Demographics + + + | Address | [address] | | | [place] [address] | + + + | Home Phone [...] Team Providers + +------+ + | Care Ornamental Metalwork Designer Name | Role | Phone | [...] + + + + | 07/08/ | Home Care | [facility] [place] | Sam Quintanilla, | PT REPEAT VISIT | | 2019 | Visit | [place] [address] | FINAL EXPENSE AGENT [address] | | | | | [place] | [place] | | | | | [address] | [address] | | | | | [phone] | | | +--------+ + + + [...] [place] | | | | | | [address] | | | | | | | | +--------+ + + + + | 04/11/ | Appointment | Radiology | Shawn Michael | | | 2019 | | | MD Marcelino [address] | | | | | | [address] | | | | | | [place] [address] | | | | | | [phone] | | | | | | | | +--------+ + + + + | 04/13/ | Office | Cardiology | Shawn Michael | | | 2019 | Visit | | MD Marcelino [address] | | | | | | [address] [place] | | | | | | [place] [address] | | | | | | [phone] | | | | | | | [...] | at or above 90% | | | | | | after 100 ft [...] | HH PULSE OXIMETRY | Problem: HH PT | | | Pt maintained O2 > | | Description: | DYSPNEAGoal: HH PT | Comple | | then 92% on 2 lit O2 | | Assess oxygen | DYSPNEA | yoel | | with activity | | saturation via pulse | | [...] | | pt with use of 4WW with | | gait training using | | | | portable O2 for 2x200 | | LRAD no weight | | | | feet on uneven surfaces, | | bearing restrictions | | | | completed task with | | | | | | contact guard | | | | | | assistance. Therapist | | | | | | gave VC for improved | | | | | | postural mechanics and | | | | | | normalized loading | | | | | | mechanics through ankles | | | | | | and hips. FINAL EXPENSE AGENT notes | | | | | | ongoing deficits: poor | | | | | | endurance and flexed | | | | | | trunk, that will | | | | | | continue to be addressed | | | | | | in future visits. | + + +--------+--------+ + | PT therapeutic | Problem: HH PT | | | Therapist performed | | exercise | IMPAIRED | Comple | | progressive resistance | | Description: | STRENGTHGoal: HH PT | yoel | | exercises in sitting: | | Evaluate and | STRENGTH | | | ankle PF/DF, LAQ, HS | | instruct the patient | | | | curls, hip ad/abd, hip | | and/or caregiver | | | | flexion and hip IR/ER. | | and provide home | | | | Therapist adjusted | | exercise program to | | | | difficulty by changing | | restore maximal | | | | position relative to | | functional strength. | | | | gravity and use of | | | | | | therabands/manual | | | | | | resistance as indicated | | | | | | to allow pt to complete | | | | | | 12-15 reps to simulate | | | | | | ~60% of 1 RM for gentle | | [...] | Problem: HH PT | | | FINAL EXPENSE AGENT instructed pt on | | training | IMPAIRED | Comple | | corrected sit to stand | | Description: | TRANSFERSGoal: HH PT | yoel | | mechanics including | | Evaluate and | TRANSFERS | | | appropriate timing and | | instruct patient | | | | amplitude of forward wt | | and/or caregiver in | | | | shift at initiation, | | safe transfers using | | | | avoiding posterior | | appropriate body | | | | support on legs, and | | mechanics and | | | | completion of stance | | necessary equipment. | | | | with adequate hip | | | | | | extension to align | | | | | | pelvis and spine for | | | | | | optimal stability and | | | | | | function. | + + +--------+--------+ + documented in this encounter"
--- OUTSIDE RECORDS SUMMARY | ~2020-03-14 | XMS | Encounter Summary ---
Demographics + + + | Address | [address] | | | [place] [address] | + + + | Home Phone [...] Team Providers + +------+ + | Care Boot Turner Name | Role | Phone | + [...] | +--------+ + + + + | 09/08/ | Telephone | [facility] [place] | Shikha Peace, | Referral (Follow up) | | 2019 | | [place] [address] | [address] | | | | | [place] | | | | | | [address] | | | | | | [phone] | | | +--------+ + + + [...] | | 2019 | Visit | | AIR EXPORT OPERATIONS AGENT [address] | | | | | | [place] | | | | | | [address] | | | | | | | | +--------+ + + + + | 04/11/ | Appointment | Radiology | Shawn Michael | | | 2019 | | | MD [address] | | | | | | [address] [place] | | | | | | [place] [address] | | | | | | [phone] | | | | | | | | +--------+ + + + + | 04/13/ | Office | Cardiology | Shawn Michael | | | 2019 | Visit | | MD [address] | | | | | | [address] [place] | | | | | | [place], [place] [address] | | | | | | [phone] | | | | | | | [...]
--- OUTSIDE RECORDS SUMMARY | ~2020-03-14 | XMS | Encounter Summary ---
Demographics + + + | Address | [address] | | | [place] [address] | + + + | Home Phone [...] Team Providers + +------+ + | Care Media Marketing Director Name | Role | Phone | + [...] [place] | | | | | | [address] | | | | | | [phone] | | | +--------+ + + + [...] | | | | | [place] [address] | | | | | | [phone] | | | | | | | | +--------+ + + + + | 04/13/ | Office | Cardiology | Shawn Michael | | | 2019 | Visit | | MD Marcelino [address] | | | | | | [address] [place] | | | | | | [place] [address] | | | | | | [phone] | | | | | | | [...] Active | linked to | | | Custodial, | | 19 | | scheduled/d | [...]
--- OUTSIDE RECORDS SUMMARY | ~2020-03-14 | XMS | Encounter Summary ---
Demographics + + + | Address | [address] | | | [place] [address] | + + + | Home Phone [...] Team Providers + +------+ + | Care Manufacturing Electrician Name | Role | Phone | + +------+ + | Candido Link | PCP | | | MD | | | + +------+ + Reason for Visit + + + | Reason | Comments | + + + | Hand Swelling | Left hand | + + + Auth/Cert +--------+--------+ + [...] | | | | | | | Arm DVT | | | | | | | (deep venous | | | | | | | | | | | | | | thromboembol | | | | | | | ism), acute, | | | | | | | left (HCC) | | | | | | | Chronic | | | | | | | obstructive | | | | | | | pulmonary | | | | | | | disease, | | | | | | | unspecified | | | | | | | COPD type | | | | | | | (HCC) Acute | | | | | | | deep vein | | | | | | | thrombosis | | | | | | | (DVT) of | | | | | | | axillary | | | | | | | vein of left | | | | | | | upper | | | | | | | extremity | | | | | | | (HCC) | | | | | | | | | | | | | | Procedures | | | | | | | HH CONTACT | | | | | | | MADE IN | | | | | | | ERROR | | | +--------+--------+ + + + + Encounter Details +--------+ + + + + | Date | Type | Department | Care Team | Description | +--------+ + + + + | 02/08/ | Hospital | [facility] | Teddy Carreno | Acute deep vein | | 2019 - | Encounter | [facility] | MD Mir [address] | thrombosis (DVT) of | | | | [address] [place] | [address] [place] | axillary vein of | | 02/23/ | | [place] [address] | [place] [address] | left upper extremity | | 2019 | | [phone] | [phone] | (HCC) (Primary Dx); | | | | | | Arm DVT (deep | | | | | Anna Hastings MD | venous | | | | | [address] | thromboembolism), | | | | | [place], [place] | acute, left (HCC); | | | | | [id number] | 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; | | | | | [address] | Chronic obstructive | | | | | [place] | pulmonary disease, | | | | | [id number] | unspecified COPD | | | | | | type ([facility]); | | | | | | Decubitus ulcer of | | | | | | sacral region, stage | | | | | | 2 ([facility]); 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 ([facility]); | | | | | | Pressure injury of | | | | | | sacral region, stage | | | | | | 3 ([facility]) | +--------+ + + + + Social [...] + + + | Blood Pressure | 122/58 | 02/24/2020 8:29 AM | | | | | PDT | | + + + + + | Pulse | 96 | 02/24/2020 10:10 AM | | | | | PDT | | + + + + + | Temperature | 36.7 C (98 F) | 02/24/2020 8:29 AM | | | | | PDT | | + + + + + | Respiratory Rate | 38 | 02/24/2020 10:10 AM | | | | | PDT | | + + + + + | Oxygen Saturation | 97% | 02/24/2020 10:10 AM | | | | | PDT | | + + + + + | Inhaled Oxygen | - | - | | | Concentration | | | | + + + + + | Weight | 45.5 kg (100 lb 5 | 02/24/2020 5:00 AM | | | | oz) | [...] + documented in this encounter Discharge Summaries Keyur Carvajal MD - 02/24/2020 12:03 PM PDT [facility] DISCHARGE SUMMARY Pt. Name/Age/: Ángela Crowley 89 y.o. 1930 Date of Admission: 02/09/2020 Date of Discharge: 02/24/2020 Admitting Physician: Anna Hastings MD Primary Care Provider: Candido Link MD Discharging Physician: Keyur Carvajal MD DISCHARGE DIAGNOSES: Active Hospital Problems Diagnosis Pressure injury of sacral region, stage 3 Arm DVT (deep venous thromboembolism), acute, left Iron deficiency anemia due to chronic blood loss Aortic stenosis status post TAVR,2019 COPD without exacerbation Generalized anxiety disorder treated with lexapro DISCHARGE MEDICATIONS: Discharge Medications New Medications Details amoxicillin-clavulanate 875-125 mg per tablet Take 1 tablet by mouth 2 times daily. aka: AUGMENTIN apixaban 2.5 mg tablet Take 1 tablet by mouth 2 times daily for 67 doses. Indications: VTE PE Prophylaxis - hip s urgery aka: ELIQUIS collagenase ointment Apply to the area of tissue necrosis around the wound daily with wound care aka: SANTYL nystatin 222014 UNIT/GM cream aka: MYCOSTATIN Unchanged Medications Details acetaminophen 500 mg tablet [...] hours as needed arformoterol 15 MCG/2ML Nebu Take 2 mLs by nebulization Twice Daily. Length: Lifetime, Dx: J44.9 aka: BROVANA aspirin 81 mg chewable tablet Take 1 tablet by mouth Daily. atorvaSTATin 20 mg tablet TAKE 1 TABLET BY MOUTH ONCE DAILY IN THE MORNING aka: LIPITOR brimonidine 0.2% ophthalmic solution Place 1 drop into both eyes 2 times daily. aka: ALPHAGAN budesonide 0.5 mg/2 mL nebulizer solution Take 2 mLs by nebulization 2 times daily. Dx Code J44.90 aka: PULMICORT calcium (as carbonate) 600 mg tablet Take 600 mg by mouth daily (with breakfast). aka: CALTRATE carvedilol 6.25 mg tablet Take 6.25 mg by mouth 2 times daily (with breakfast & dinner). aka: COREG cetirizine 10 mg tablet Take 1 tablet by mouth once daily aka: zyrTEC cholecalciferol 25 mcg (1,000 units) tablet Take 1,000 Units by mouth Daily. aka: VITAMIN D-3 Cranberry 600 MG Tabs Take 1 tablet by mouth Daily. dicyclomine 10 mg capsule Take 1 capsule by mouth Daily as needed for Other (As needed for abdominal cramps). aka: BENTYL docusate sodium 250 MG capsule Take 1 capsule by mouth Twice daily as needed for Constipation. Hold for loose stools aka: COLACE dorzolamide 2% ophthalmic solution Place 1 drop into both eyes 2 times daily. aka: TRUSOPT escitalopram 10 mg tablet Take 1.5 tablets by mouth Daily. aka: LEXAPRO famotidine 40 MG tablet Take 1 tablet [...] for Pain. aka: NORCO ketoconazole 2% cream Apply topically 2 times daily. aka: NIZORAL lactobacillus GG capsule Take 1 capsule by mouth 2 times daily. As probiotic (or use some similar OTC probiotic) fo r 10 days latanoprost 0.005% ophthalmic solution Place 1 drop into both eyes nightly. aka: XALATAN MIRALAX 17 g packet Generic drug: polyethylene glycol Take 17 g by mouth Daily as needed for Constipation. nitroglycerin 0.[address] 0.4 [...] aka: PROTONIX polyvinyl alcohol 1.4% ophthalmic solution Place 2 drops into both eyes every morning. aka: LIQUITEARS predniSONE 10 mg tablet Take 1 tablet by mouth Daily. aka: DELTASONE PRESERVISION AREDS 2 Caps Take 1 capsule by mouth 2 times daily. MULTIVITAMIN GUMMIES ADULT PO Take 1 gummy by mouth daily prochlorperazine 10 mg tablet Take 1 tablet [...] as needed for nasal dryness aka: OCEAN sulfamethoxazole-trimethoprim 800-160 mg per tablet Take 1 tablet by mouth 2 times daily for 10 days. Indications: Non-Purulent Skin and Soft Tissue Infection aka: BACTRIM DS TUMS 500 mg chewable tablet Generic drug: calcium carbonate Chew and swallow 2 tablets Twice daily as needed for Heartburn or Indigestion. UNABLE TO FIND Powder free dispoable gloves, size large vitamin C 1000 MG tablet Take 1,000 mg by mouth Daily. Discontinued Medications bacitracin 500 UNIT/GM ointment DISCHARGE INSTRUCTIONS: Follow-up Information Candido Link MD On 02/29/2020. Specialty: Internal Medicine Why: This is your hospital follow up appointment, scheduled for 10:00, Please check in at 9:45. Contact information: [address] [place] [phone] Wound care for sacral wound: 1. Cleanse with wound cleanser and gauze 2. Cut piece of aquacel to fill the wound bed - at this time, the wound requires two laye rs to match level of the tissue above 3. Place a thin layer of Santyl around the wound edge that is devitalized to promote enzy matic debridement 4. Cover wound with Small, clover shaped, adhesive edged foam dressing. 5. Change daily until devitalized tissue is removed. At that time, d/c Santyl, continue t o pack as needed for depth, decrease sized as needed. At that point, change dressing f requency to every other day RESULTS: Results for CARLINE ÁNGELAISMAEL REDDY ( ) as of 02/24/2020 19:39 Ref. Range 02/24/2020 05:28 WBC Latest Ref Range: 4.0 - 11.0 K/uL 12.1 (H) RBC COUNT Latest Ref Range: 3.70 - 5.20 M/uL 3.03 (L) Total Hemoglobin Latest Ref Range: 11.5 - 16.0 g/dL 9.0 (L) Hematocrit Latest Ref Range: 34.0 - 47.0 % 29.6 (L) MCV Latest Ref Range: 83.0 - 101.0 fL 97.7 MCH Latest Ref Range: 28.0 - 35.0 pg 29.7 MCHC Latest Ref Range: 32.0 - 36.0 g/dL 30.4 (L) RDW-CV Latest Ref Range: <15.0 % 17.1 (H) RDW-SD Latest Ref Range: 35.1 - 46.3 fL 61.1 (H) Platelet Count Latest Ref Range: 140 - 440 K/uL 199 Results for ÁNGELA CROWLEY ( ) as of 02/24/2020 19:39 Ref. Range 02/24/2020 05:28 Na Latest Ref Range: 136 - 145 mmol/L 141 K Latest Ref Range: 3.4 - 5.1 mmol/L 4.5 Chloride Latest Ref Range: 98 - 107 mmol/L 105 Carbon dioxide Latest Ref Range: 20 - 31 mmol/L 31 Anion Gap Latest Ref Range: 3 - 16 mmol/L 5 Glucose Latest Ref Range: 60 - 106 mg/dL 81 BUN Latest Ref Range: 9 - 23 mg/dL 27 (H) Creatinine Latest Ref Range: 0.55 - 1.02 mg/dL 0.86 BUN/Creatinine Ratio Unknown 31.4 Albumin Latest Ref Range: 3.2 - 4.8 g/dL 3.0 (L) Albumin/Globulin Ratio Latest Ref Range: 0.8 - 1.9 1.4 Total Protein Latest Ref Range: 5.7 - 8.2 g/dL 5.2 (L) EGFR IF NOT Latest Ref Range: >=60 mL/min/1.73m2 >60 Calcium Latest Ref Range: 8.7 - 10.4 mg/dL 8.8 ALK PHOS Latest Ref Range: 46 - 116 U/L 87 ALT (SGPT) (REF) Latest Ref Range: 10 - 49 U/L 68 (H) AST (SGOT) (REF) Latest Ref Range: 0 - 34 U/L 40 (H) Bilirubin Total (Calculated) Latest Ref Range: 0.3 - 1.2 mg/dL 0.3 Globulin Latest Ref Range: 2.1 - 3.8 g/dL 2.2 CRP Latest Ref Range: <10.00 mg/L 26.90 (H) VAS UPPER EXTREMITY VENOUS LEFT 02/09/2020 7:19 PM HISTORY: assess for DVT. COMPARISON: 02/07/2020 PROTOCOL: Tomlinson scale and Doppler images of the upper extremity veins. FINDINGS: See below IMPRESSION: Deep venous thrombosis is noted within the left subclavian and axillary veins. DVT is noted within the mid/distal left basilic vein at site of previous IV. The preliminary findings were conveyed to the ordering provider, by the digital media coordinator, immediately following the exam. Dictated and Signed by: Bartolome Neff MD Electronically signed: 02/09/2020 8:35 PM TTE procedure:ECHO Complete. Procedure Date Date: 02/14/2020 Start: 03:12 PM Study Location: Adult Floor Technical Quality: Adequate visualization Indications:CONGESTIVE HEART FAILURE UNSPECIFIED 428.0/ I50.9 and s/p TAVR (transcatheter aortic valve replacement), bioprosthetic Z95.3/V42.2. Patient Status: Routine Height: 66 inches Weight: 102 pounds BSA: 1.5 m^2 BMI: 16.46 kg/m^2 HR: 92 bpm Conclusions Summary Left ventricle is normal in size and function. There is mild concentric hypertrophy ejection fraction is estimated at 65%. 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 No insufficiency is noted. Structurally normal tricuspid valve with mild to moderate insufficiency and peak velocity consistent with RVSP 41-46 mmHg. Left atrium is mildly enlarged. Compared with patient's last echocardiogram, aortic valve gradient is slightly higher. Otherwise no significant changes are noted. Signature HOSPITAL COURSE: Please refer to the H&P for full details. In short this 89-year-old female with a history of home O2 dependent COPD, history of TAVR and 2019 for severe aortic stenosis, chronic iron deficiency anemia without bleeding sites identified on colonoscopy and upper endoscopy ende d with pain and swelling in her left upper extremity. She had had this complaint while hosp italized on 02/06 and ultrasound was performed which was negative for DVT. The emergency room had follow-up ultrasound which showed acute DVT of her basilic vein. Is admitted for treat ment of her DVT with apixaban given her history of chronic blood loss was felt to require mo nitoring initially to rule out bleeding. Patient had been previously hospitalized for treatment of sepsis associated with a decubit us ulcer and on February 02 had a culture growing MRSA from a swab of the surface eschar. Was placed on Santyl by Dr. Thrasher, the general surgeon in consultation to loosen up her eschar . The patient had repeat cultures with enterococcus, Bacteroides species, and Timbo albic ans. She had been treated with Septra for MRSA and Unasyn was added. When I examined the p atient on 02/21 she had developed a hole in her eschar and on it was clear that this had pull ed away from the main wound base and Dr. Diaz excised this at the bedside exposing the wou nd base. She was seen in consultation by wound care with occupational therapy and care livier muniz with exposure to aquacel applied to the wound base and Santyl around the eschar on the r im of the lesion. She was followed by nutrition services and did improve her caloric intake with calorie counting and a red tray. Discussion with the patient and her son regarding he aling of sacral decubitus wounds advising them that we needed to have a clean wound, good n utrition, and relief of pressure to heal the wound. It was recommended that she receive alt ernating pressure mattress and that on exam this was at least a stage III decubitus so addit ionally have a Roho cushion noting she does have a wheelchair at home. In addition the nathalie n will be to have home health follow her closely. The son is her primary caregiver and init ial training in wound care occurred on the day of discharge with the electronic health records specialist [facility] will participate in daily wound care starting the day following discharge until t he wound is capable of performing wound care. They well aLso supervise wound appearance and make recommendations. She will receive a total of an additional 10 days of Augmentin 875/1 25, 1 pill twice daily and 10 days of Septra DS 1 twice daily. She will be seen by PCP Dr. Millan on 02/28 and total duration of antibiotic therapy will be based on assessment. Her C RP on the day of discharge is 26.9, down from 99.1 on 01/30. I advised the patient and her s on at the time of my assessment that the area of erythema surrounding her lesion is consiste nt with either ischemic pressure necrosis or cellulitis with the differentiation difficult s hort of looking at other signs of systemic infection such as fevers and leukocytosis. Patie nt and son were offered surgical debridement recommended by Dr. Diaz to better assess exte nt of wound but declined this, with both proceeding with surgery and the course chosen gulshan man to be acceptable as an initial approach given her overall medical status. Otherwise the alternating pressure mattress will be obtained on the day of discharge and t he Roho cushion in the next 1 to 4 days. Follow-up with general surgery with Dr. Diaz is dependent upon Dr. Millan's assessment with emphasis on nutrition, skin pressure relief, an d wound care and avoidance of infection. The plan of a caregiver and home health was chosen as a care plan given the patient's level of anxiety and dependence on her family making SNF placement not acceptable to her son or the patient. The patient's DVT has a plan 6-week course of apixaban 2.5 mg twice daily with continuation of therapy depending upon her course and status overall. PHYSICAL EXAM: Temp: 36.7 C (98 F), Pulse: 96, Resp: (!) 38, BP: 122/58, SpO2 97 % on nasal cannula at flow rate 2L/min Temp Min: 36.2 C (97.2 F) Max: 37.2 C (99 F) Weight: 51.3 kg (113 lb) Patient seen and examined by me on discharge day Greater than 30 minutes were spent on discharge and coordination of post-hospital care. Electronically signed by: Keyur Carvajal MD, 02/24/2020 12:04 PM [facility] Portions of this chart may have been created with [employer] voice recognition software. Occasi onal wrong-word or sound-alike substitutions may have occurred due to the inherent owen itations of voice recognition software. Please read the chart carefully and recognize, using context, where these substitutions have occurred documented in this encounter Discharge Instructions Instructions Moreno Fergusonssmichelle Orona RN - 02/24/2020 Discharge Instructions for Deep Vein Thrombosis (DVT) A blood clotorthrombusthat forms in [facility], deep vein is calledadeep vein throm bosis (DVT). IfaDVT is not treated, part of the clot (embolus) can break off and travel toyour lungs. This is called a pulmonary embolus (PE). This can cut off theflow of blood to part or all of the lung. PE is a medical emergency and may cause . Healthcare providers use the termvenous thromboembolism (VTE)to describe these two cond itions: DVTandPE.They use the term VTE because the two conditions are very closely rel ated. And because their prevention and treatment are also closely related. Followall instructionsfortaking your medicine, follow-up care,and dietand lifesty le changes. Medicine Yourhealthcare providerwillusuallyprescribe an anticoagulant medicine.This medici ne is a bloodthinner that helps to prevent new blood clots. Anticoagulants can be given by mouth (oral), by injection, or into your vein (intravenous orIV). Commonly used anticoagu lants include warfarin and heparin. Newer anticoagulants may also be used. They include olvin roxaban,apixaban, dabigatran,and enoxaparin. Your healthcare provider will provide speci fic instructions on how to take your anticoagulant. You may take more than one type for a pe riod of time. Make sure to take your anticoagulant exactly as directed. If you miss a dose,callyour healthcare providerto find out what you should do. These medicinesincrease the chance of bleeding. So it is very important to take themcorrectly.Be sure to tell all of your [place] providers,including dentists,that you are taking an anticoagulant. Follow-up monitoring If you are takingwarfarin, you will need regular blood tests to see how it is working. Th lionel blood tests include aprothrombin time (PT),also reported as aninternational normal ized ratio (INR). Your dose of warfarin may be changed based on the test results. It isver y important that you keep yourtesting appointments after you leave the hospital. Be sure you understand the following informationbefore you go home: My next PT/INR blood draw will be on (date) at (time) at (name of healthcare provider or clinic and addres s). The name of thehealthcare providerwho will monitor my anticoagulation is and the phone number is . Depending on which anticoagulant you are prescribed, you may need other blood tests. Before you are discharged, your healthcare provider will review what testing is needed in detail. Diet and warfarin Vitamin K can interact with warfarin and reduce its ability to thin your blood. Vitamin K h elps your blood clot. So sudden changes in vitamin K intakecan affect the way warfarin wor ks. You don t need to avoid foods with vitamin K. Instead, keep the amount you eat about t he same each day. Foods high invitamin K include: Leafy green vegetables like spinach, cabbage, and kale Avocado Asparagus Egg yolks Oils like canola, olive, and soybean When taking warfarin, don't change your diet without first checking with your healthcare pr ovider. The other anticoagulants don't have the same interaction with vitamin K that warfarin does. Medicines and your anticoagulant Some medicines may cause problems with anticoagulants. Check with your healthcare provider before making any changes to your medicines. And don't take pfzy-dgm-csgrjmb (OTC) medicines without checking with your provider. Some medicines interact with your anticoagulant and ma ke your blood too thin. This increases your risk of bleeding. Others may stop your anticoagu lant from doing its job, making your blood too thick. So it is very important to tell your [facility] provider about all of the medicines you take, including OTCs and herbal supplement s. Don't start or stop taking any medicine, including OTCs, unless your healthcare provider tells you to. Medicines that maycause problems with your anticoagulant include: Some antibioticmedicines Some heart medicines Cimetidine Aspirin or othernonsteroidalanti-inflammatory medicines(NSAIDs) such as ibuprofen or naproxen. Some medicines for depression, cancer, HIVinfection, diabetes, seizures, gout, high ch olesterol, or thyroiddisease Vitaminswith vitamin K Someherbal products such as Ullin's wort, garlic, coenzyme Q10, turmeric, and ginkg o biloba Home care To help prevent blood clots, try the following: Wiggle your toes and move your ankles while sitting or lying down. When traveling by car, make frequent stops togetupand move around. On long airplane rides,get up and move around when possible.If you can t get up, w iggle your toes, move your ankles and tighten your calves to keep your blood moving. If you have to stay in bed, do leg exercises. Wear support or compression stockings,if prescribed by your healthcare provider. Rest and put your legs up whenever they feel swollen or heavy. Raise the foot of your mattress 5 to 6 inches, using a foam wedge. Lifestyle changes To help you stay healthy, especially your heart and blood vessels, you should: Begin an exercise program, if you are not exercising. Ask your healthcare provider how t o get started.Try walking, inside or out. Stay ricco healthy weight. Get help to lose any extra pounds. Keep blood pressure in a healthy range If you smoke, make a plan to quit.Ask your healthcare provider aboutstop-smoking pro gramsto helpyou quit. Call 911 Call 911 right awayif you have the following symptoms. They may mean a blood clot in your lungs: Chest pain Trouble breathing Fast heartbeat Sweating Fainting Coughing (may cough up blood) Heavy or uncontrolled bleeding When to call your healthcare provider Call yourhealthcare provider if youhave pain, swelling, or redness in your leg, arm, or other area. These symptoms may mean a blood clot. If you take blood thinners and are bleeding, you may have: Blood in the urine Bleeding with bowel movements Very dark or tar-like stool Vomiting with blood Coughing with blood Bleeding from the nose Bleeding from the gums A cut that will not stop bleeding Bleeding from the vagina Date Last Reviewed: 02/04/201619993170-2625 [employer] [address] [place] [address], [place] [address]. All righ ts reserved. This information is not intended as a substitute for professional medical care. Always follow your healthcare professional's instructions. Probiotics Patient Discharge Information Sheet Probiotics are [...] flavors available): 8 ounces per day ? [place] Fresh Yogurt (many flavors available): 6 ounces per day Wound care for sacral wound: 1. Cleanse with wound cleanser and gauze 2. Cut piece of aquacel to fill the wound bed - at this time, the wound requires two laye rs to match level of the tissue above 3. Place a thin layer of Santyl around the wound edge that is devitalized to promote enzy matic debridement 4. Cover wound with Small, clover shaped, adhesive edged foam dressing. 5. Change daily until devitalized tissue is removed. At that time, d/c Santyl, continue t o pack as needed for depth, decrease sized as needed. At that point, change dressing f requency to every other day, or as neede documented in this encounter Medications at Time [...] by | 60 vial | 0 | 03/06/20 | | | mL nebulizer | nebulization [...] 0 | 02/24/20 | | | (MYCOSTATIN) [id number] | | | | 20 | | [...] 19 | | | Oxygen dependent | LAETHEA: 99 months. | | | | | [...] | | 0 | | | | ([facility]) 0.65% nasal | Nare route. two [...] documented as of this encounter Progress Notes Ina Vann, PharmD - 02/24/2020 7:13 AM PDTFormatting of this note might be differen t from the original. RENAL DOSE ADJUSTMENT PER PHARMACY PROTOCOL: Subjective/Objective: Ángela Crowley is a 89 y.o. year old female admitted on 02/09/2020 6:29 PM and is recei ving BACTRIM and AMPICILLIN/SULBACTAM BP 152/68 | Pulse 91 | Temp 36.7 C (98.1 F) (Axillary) | Resp 20 | Ht 1.676 m (5' 5 .98") | Wt 45.5 kg (100 lb 5 oz) | SpO2 95% | BMI 16.20 kg/m Intake/Output Summary (Last 24 hours) at 02/24/2020 0713 Last data filed at 02/24/2020 0512 Gross per 24 hour Intake 537 ml Output 1575 ml Net -1038 ml Recent Labs Lab 02/24/20 0528 02/23/20 0537 02/22/20 0602 CREA 0.86 0.88 0.96 Estimated Creatinine Clearance: 32 mL/min (based on SCr of 0.86 mg/dL). BACTRIM Date Day of therapy Creatinine CrCl (mL/min) Dose-current Dose-new 02/20/20 6 0.93 27 1 DS po BID 1 DS daily 02/21/20 7 0.96 25 1 DS daily 2 DS daily 02/24/20 10 0.86 32 2 DS daily 1 DS q12hr UNASYN Date Day of therapy Creatinine CrCl (mL/min) Dose-current Dose-new 02/20/20 1 0.93 27 3 g q6hr 3 g q12hr 02/24/20 5 0.86 32 3 g q12 hr 3 g q8hr Assessment/Plan: 1. For creatinine clearance >30 mL/min, adjust dose of BACTRIM and AMPICILLIN/SULBACTAM as above. 2. Pharmacy will continue to follow and adjust dose as appropriate to clinical condition an d creatinine clearance changes RENAL DOSE ADJUSTMENT PROTOCOL Electronically signed by: Ina Vann PharmD 02/24/2020 7:13 AM Keyur Sharma MD - 02/23/2020 8:38 PM PDT [facility] PMG Hospitalist Progress Note Ángela Crowley is a 89 y.o. female ASSESSMENT and PLAN: Active Hospital Problems Arm DVT (deep venous thromboembolism), acute, left Patient with history of DVT initiated on apixaban 5 mg twice daily for the first 72 hours t hen 2.5 mg twice daily discontinued for 24 hours because of possible surgical admit. The pa tient restarted after 24 hours last night after surgery was declined. Sacral decubitus wound His wound on 02/15 had enterococcus, Bacteroides, and Timbo albicans. Enterococcus was am picillin sensitive. 02/02 she grew methicillin-resistant staph aureus. Today at the bedside the eschar was unroofed with the patient having a relatively clean appearing base. Was rev iewed with wound care he had a Aquacel placed on the base of her wound and continued santyl the edge of the wound to encourage debridement borders. Viewed with the patient and her son today in her room the importance of cleaning her wound with local wound care, nutrition, and release of pressure. After discussion a order for a a lternating pressure mattress to go on her bed and a Roho cushion for her seat was initiated. Iron deficiency anemia Stable Hyperkalemia Early in the patient's course she had a potassium of 5.6. On a potassium restricted diet b ut has nutritional issues and does enjoy some's with moderate amounts of potassium. Potassi um today was 4.4. SUBJECTIVE: Patient reports she is not short of breath and denies significant pain. Denies nausea or abdominal pain. VITALS: Temp: 37.2 C (99 F), Pulse: 104, Resp: 19, BP: 144/69, SpO2 95 % on nasal cannula at fl ow rate 2L/min Temp Min: 36.1 C (96.9 F) Max: 37.2 C (99 F) Weight: 51.3 kg (113 lb) Intake/Output Summary (Last 24 hours) at 02/23/20202037 Last data filed at 02/23/2020 1900 Gross per 24 hour Intake 712 ml Output 1475 ml Net -763 ml PHYSICAL EXAM: General: Conversant and appropriate but hard of hearing. Cardiovascular: Regular rate and rhythm Respiratory: Diminished but otherwise clear Abdomen: Soft and nontender Extremities: without pedal edema Skin: Examination of the decubitus area does show that the overlying eschar was debrided of f and she has a stage III, cannot exclude stage IV, wound involving her wound base. This strickland d Aquacel placed with continued Santyl around the margins to help debride the necrotic escha r currently on the margins. DIAGNOSTIC STUDIES: Available data and images were reviewed personally. Significant results and findings are a ddressed here or in the Assessment and Plan. Lab Results Component Value Date HGB 8.8 (L) 02/23/2020 HCT 28.3 (L) 02/23/2020 PLT 179 02/23/2020 WBC 10.7 02/23/2020 Lab Results Component Value Date NA 141 02/23/2020 K 4.4 02/23/2020 CL 102 02/23/2020 CO2 34 (H) 02/23/2020 CREA 0.88 02/23/2020 BUN 31 (H) 02/23/2020 MG 2.2 02/22/2020 CRP 99.10 (H) 01/31/2020 ESR 4 06/06/2019 BNP 360 (H) 02/21/2020 Glucose, POC Date/Time Value Ref Range Status 02/23/2020 04:23 PM 180 (H) 70 - 109 mg/dL Final 02/23/2020 11:39 AM 116 (H) 70 - 109 mg/dL Final 02/23/2020 07:02 AM 86 70 - 109 mg/dL Final Glucose, POC Date/Time Value Ref Range Status 02/23/2020 04:23 PM 180 (H) 70 - 109 mg/dL Final 02/23/2020 11:39 AM 116 (H) 70 - 109 mg/dL Final 02/23/2020 07:02 AM 86 70 - 109 mg/dL Final No results found. Total time of approximately 30 minutes was spent with the patient and/or patient's family, and/or on the patient's floor/unit, of which more than 50% was spent counseling and/or coord ination the patient's care as outlined above. Keyur Carvajal MD 02/23/2020 8:[address] [facility] Portions of this chart may have been created with [employer] voice recognition software. Occasi onal wrong-word or sound-alike substitutions may have occurred due to the inherent owen itations of voice recognition software. Please read the chart carefully and recognize, using context, where these substitutions have occurred YAPotBenjamin corona M D - 02/23/2020 10:[address] AM [address] [facility] PROGRESS NOTE Patient: Ángela Crowley : 1930: Age: 89 y.o. MedRec: [id number] Admission date: 02/09/2020 Hospital day # : 13 Physician author: Benjamin Diaz MD Today: 02/23/2020 Assessment and Hospital Course Active Hospital Problems Diagnosis Arm DVT (deep venous thromboembolism), acute, left Iron deficiency anemia due to chronic blood loss Resolved Hospital Problems No resolved problems to display. 89-year-old female with multiple comorbid medical conditions with infected sacral pressure ulcer complicated by chronic protein malnutrition, very thin body habitus, and inability to achieve significant pressure relief. The wound has remained refractory to topical and local wound care only, though the eschar seems to be somewhat softer after applying collagenase o intment over the last week or so. Nevertheless, I am concerned that the wound goes quite de ep and there is some undermining deep to the surrounding erythematous skin. Actual depth of the wound cannot be ascertained currently, but may involve periosteum or bone itself. Plan Discussed my impression and findings with the patient and her physician, Dr. Carvajal. I hav trevor also spoken again to Mr. Yadiel Argueta, the patient's son and power of privacy attorney, this morn ing via telephone. Following our conversation yesterday the patient had indicated that he r efused any operative procedure in the operating room as I have initially and continue to rec ommend. In my opinion, formal operative debridement under anesthesia is the best option in this situation to control infection and potentially facilitate healing with more advanced wo und care. I explained this once again to Mr. Argueta. However, he continues to refuse surger y given the potential risks of the operation. I certainly respect his position in that rega rd. After his discussion with Dr. Carvajal yesterday, he wishes to explore the possibility of bedside debridement of the superficial eschar. I explained the technical details of that p rocedure at the bedside. Certainly bedside debridement carries a much lower risk of complic ations than any operative intervention, but she could still experience bleeding issues. She may not even tolerate the procedure at the bedside. I explained that I could not apply loc al anesthesia to the area to completely relieve her of any discomfort. I anticipate that de bridement of the eschar, which is insensate, will be well-tolerated at the bedside. Neverth eless, I clearly explained in mer terms that removal of the eschar will not completely era dicate the infected tissue or prevent further progression of the ulcer. There is a small po ssibility, however, that removal of the eschar may allow for some application of collagenase and/or other packing to a slightly deeper aspect of the wound that may help to cleanse the wound to some extent. I once again explained that regardless of the procedure that is perfo rmed she is likely to continue to have difficulties with pressure ulceration without complet e resolution of her chronic protein malnutrition and institution of significant pressure rel ief precautions. In fact, I suspect that she will have a chronic open wound for the remaind er of her lifespan, and I expressed that to him. At his request we again discussed the tech nical details of operative intervention under anesthesia with the associated anticipated hea ling and recovery times. The significant potential risks of such an operation were again re viewed, and I reiterated those as documented in my note of February 21, 2020, including the possi ble need for admission to a halfway facility for some period of time after release f rom the hospital. Again, he wished to avoid admitting his mother to a nursing facility, and he plans to have her return home following discharge. He did at the end of our conversatio n indicate to me his inclination to request transfer of his mother to another [facility] for a second opinion regarding her overall care as well as management of the sacr al pressure ulcer. I advised him that if he was so inclined that he should discuss this wit h Dr. Carvajal, and we would be happy to facilitate a second opinion for him. I also offered a second surgical opinion with 1 of my colleagues, but he declined. In addition, he openly admitted that transfer to another facility would likely result in the same recommendations t hat he has received from myself as well as the remainder of her care team here at [facility] . Questions were answered to his satisfaction, and he voiced understanding. He stated that he was actually quite pleased with my consultation. He therefore granted verbal consent fo r bedside debridement under my care as above. We will proceed later today per his wishes. Benjamin Diaz MD 02/23/2020 10:[address] [facility] Subjective CC fatigue ROS See above Exam General very thin almost cachectic female in no acute distress but appears chronically ill Cardiac no tachycardia Extremities no significant edema Lung audible wheezes. On nasal cannula oxygen. Mildly tachypneic. Abdominal scaphoid and soft The sacrococcygeal area again reveals the obvious decubitus ulcer is essentially unchanged from my examination dated February 21, 2020. Neuro alert but disoriented to time Objective Data Vitals Ranges: Temp: [36.1 C (96.9 F)-37.7 C (99.8 F)] 36.6 C (97.8 F) Pulse: [83-99] 94 Resp: [20-24] 20 BP: (104-142)/(55-75) 127/61 Vitals: Temp: 36.6 C (97.8 F) BP: 127/61 Pulse: 94 Resp: 20 SpO2: 96 % SpO2 96 % on nasal cannula at flow rate 2L/min Allergies: Allergies Allergen Reactions Flagyl [Metronidazole] Nausea And Vomiting and GI Upset Percocet [Oxycodone] Unknown Pregabalin Unknown Lyrica Current Medications: Current Facility-Administered Medications Medication Dose Route Frequency Provider Last Rate Last Dose acetaminophen (TYLENOL) tablet 500 mg 500 mg Oral Q6H PRN Anna Hastings MD 500 mg a t 02/14/20 1648 albuterol 2.5 mg/3 mL nebulizer solution 2.5 mg 2.5 mg Nebulization Q4H PRN Anna powell MD albuterol 2.5 mg/3 mL nebulizer solution 2.5 mg 2.5 mg Nebulization RT Q6H Anna condon MD 2.5 mg at 02/23/20 0814 alteplase (CATHFLO ACTIVASE) injection 2 mg 2 mg Intracatheter PRN Bruce Cochran MD aluminum & magnesium hydroxide-simethicone (MAALOX PLUS REGULAR STRENGTH) 200-200-20 mg /5 mL suspension 30 mL 30 mL Oral Q4H PRN Chace Higuera MD ampicillin-sulbactam (UNASYN) 3 g in sodium chloride 0.9% 100 mL IVPB 3 g Intravenous 2 times per day Chace Higuera MD 200 mL/hr at 02/23/20 0920 3 g at 02/23/20 0920 apixaban (ELIQUIS) tablet 2.5 mg 2.5 mg Oral BID Keyur Carvajal MD 2.5 mg at 0 0921 ascorbic acid (VITAMIN C) tablet 1,000 mg 1,000 mg Oral Daily Anna Hastings MD 1,00 0 mg at 02/23/20 0922 atorvaSTATin (LIPITOR) tablet 20 mg 20 mg Oral Nightly Anna Hastings MD 20 mg at 2158 brimonidine (ALPHAGAN) 0.2% ophthalmic solution 1 drop 1 drop Both Eyes BID Anna powell MD 1 drop at 02/23/20 0929 budesonide (PULMICORT) nebulizer solution 0.5 mg 0.5 mg Nebulization RT BID Bruce lynne MD 0.5 mg at 02/23/20 0814 bumetanide (BUMEX) tablet 1 mg 1 mg Oral BID (8 and 16) Bruce Cochran MD 1 mg at 0 02/23/20 0921 calcium carbonate (TUMS) chewable tablet 1,000 mg 1,000 mg Oral BID PRN Anna Hastings MD 1,000 mg at 02/17/20 1647 carvedilol (COREG) tablet 6.25 mg 6.25 mg Oral BID WC Anna Hastings MD 6.25 mg at 0 02/23/20 09 cholecalciferol (VITAMIN D-3) tablet 1,000 Units 1,000 Units Oral Daily Anna Hastings MD 1,000 Units at 02/23/20 09 collagenase (SANTYL) ointment Topical BID Keyur Thrasher MD dextrose 50% injection 12.5-25 g 12.5-25 g Intravenous PRN Anna Hastings MD And dextrose 10% (D10W) infusion Intravenous Continuous PRN Anna Hastings MD dicyclomine (BENTYL) capsule 10 mg 10 mg Oral Daily PRN Anna Hastings MD docusate sodium (COLACE) capsule 300 mg 300 mg Oral BID PRN Anna Hastings MD dorzolamide (TRUSOPT) 2% ophthalmic solution 1 drop 1 drop Both Eyes BID Anna Hastings MD 1 drop at 02/23/20 09 escitalopram (LEXAPRO) tablet 15 mg 15 mg Oral Daily Anna Hastings MD 15 mg at 02/04 09 famotidine (PEPCID) tablet 20 mg 20 mg Oral Nightly Anna Hastings MD 20 mg at 02/21 215 ferrous sulfate tablet 325 mg 325 mg Oral Daily with breakfast Anna Hastings MD 325 mg at 02/23/20 0921 fluticasone (FLONASE) 50 mcg/nasal spray 1 spray 1 spray Nasal Daily PRN Anna Hastings MD HYDROcodone-acetaminophen (NORCO) 5-325 mg per tablet 1-2 tablet 1-2 tablet Oral Q6H P RN Chace Higuera MD 1 tablet at 02/23/20 0920 insulin lispro (humaLOG KWIKPEN) injection (pen) 0-6 Units 0-6 Units Subcutaneous 4x D aily WC and HS Anna Hastings MD 1 Units at 02/22/20 1155 lactobacillus GG (CULTURELLE) capsule 1 capsule 1 capsule Oral BID Anna Hastings MD 1 capsule at 02/23/20 0921 latanoprost (XALATAN) 0.005% ophthalmic solution 1 drop 1 drop Both Eyes Nightly Rebeca Hastings MD 1 drop at 02/22/20 221 LORazepam (ATIVAN) tablet 0.5 mg 0.5 mg Oral Q8H PRN Chace Higuera MD melatonin tablet 3 mg 3 mg Oral Nightly PRN Anna Hastings MD 3 mg at 02/22/20 2158 nitroglycerin (NITROSTAT) SL tablet 0.4 mg 0.4 mg Sublingual Q5 Min PRN Anna Hastings MD nystatin (MYCOSTATIN) cream Topical BID Chace Higuera MD pantoprazole (PROTONIX) DR tablet 40 mg 40 mg Oral QAM AC Anna Hastings MD 40 mg at 02/23/20 0700 Patient own medication - Brovana 15 mcg/2 mL nebulizer 15 mcg Nebulization RT BID Nguyễn Cochran MD 15 mcg at 02/23/20 0814 polyethylene glycol (MIRALAX) powder 17 g 17 g Oral Daily PRN Anna Hastings MD polyvinyl alcohol (LIQUITEARS) 1.4% ophthalmic solution 2 drop 2 drop Both Eyes QAM Li ara Hastings MD 2 drop at 02/23/20 0929 predniSONE (DELTASONE) tablet 10 mg 10 mg Oral Daily Chace Higuera MD 10 mg a t 02/23/20 0921 prochlorperazine tablet 10 mg 10 mg Oral Q8H PRN Anna Hastings MD senna (SENOKOT) tablet 8.6 mg 8.6 mg Oral BID PRN Anna Hastings MD 8.6 mg at 2049 sodium chloride (OCEAN) 0.65% nasal spray 2 spray 2 spray Each Nare Q1H PRN Anna powell MD sulfamethoxazole-trimethoprim (BACTRIM DS) 800-160 mg per tablet 2 tablet 2 tablet Ora l Daily Markus Ott, PharmD 2 tablet at 02/23/20 0922 traZODone (DESYREL) tablet 50 mg 50 mg Oral Nightly PRN Chace Higuera MD Current Infusions: dextrose 10% Point of care glucose Recent Labs Lab 02/23/20 0702 02/22/20 2157 02/22/20 1644 02/22/20 1153 02/22/20 0632 02/21/20 2120 POCGLU 86 120* 133* 192* 91 231* Labs last 24 hours Recent Results (from the past 24 hour(s)) Coronavirus (COVID-19) NAAT Collection Time: 02/22/20 10:45 AM Result Value Ref Range SARS coronavirus 2 NAAT Not Detected Not Detected [facility] STAT instructions for COVID-19 tracking Collection Time: 02/22/20 10:45 AM Result Value Ref Range [facility] COVID STAT instruction POC Glucose Collection Time: 02/22/20 11:53 AM Result Value Ref Range Glucose, POC 192 (H) 70 - 109 mg/dL POC Glucose Collection Time: 02/22/20 4:44 PM Result Value Ref Range Glucose, POC 133 (H) 70 - 109 mg/dL POC Glucose Collection Time: 02/22/20 9:57 PM Result Value Ref Range Glucose, POC 120 (H) 70 - 109 mg/dL CBC no Differential Collection Time: 02/23/20 5:37 AM Result Value Ref Range WBC 10.7 4.0 - 11.0 K/uL RBC 2.88 (L) 3.70 - 5.20 M/uL Hemoglobin 8.8 (L) 11.5 - 16.0 g/dL Hematocrit 28.3 (L) 34.0 - 47.0 % MCV 98.3 83.0 - 101.0 fL MCH 30.6 28.0 - 35.0 pg MCHC 31.1 (L) 32.0 - 36.0 g/dL RDW-CV 17.0 (H) <15.0 % RDW-SD 61.4 (H) 35.1 - 46.3 fL Platelet Count 179 140 - 440 K/uL MPV 9.9 6.5 - 12.4 fL % nRBC 0 0 - 2 per 100 WBCs Absolute nRBC 0.00 0.00 - 0.01 K/uL Basic Metabolic Panel Collection Time: 02/23/20 5:37 AM Result Value Ref Range Na 141 136 - 145 mmol/L K 4.4 3.4 - 5.1 mmol/L Cl 102 98 - 107 mmol/L CO2 34 (H) 20 - 31 mmol/L Anion Gap 5 3 - 16 mmol/L Glucose 79 60 - 106 mg/dL BUN 31 (H) 9 - 23 mg/dL Creatinine 0.88 0.55 - 1.02 mg/dL eGFR if not >60 >=60 mL/min/1.73m2 Calcium 8.7 8.7 - 10.4 mg/dL BUN/Creatinine Ratio 35.2 POC Glucose Collection Time: 02/23/20 7:02 AM Result Value Ref Range Glucose, POC 86 70 - 109 mg/dL Micro results (more choices using dot micro) Microbiology Results (72 hrs) Procedure Component Value Units Date/Time Coronavirus (COVID-19) NAAT [[id number]] (Normal) Collected: 02/22/201044 Order Status: Completed Lab Status: Final result Updated: 02/23/20851 Specimen: Tissue from Nasopharynx SARS coronavirus 2 NAAT Not Detected Narrative: See scanned report [facility] STAT instructions for COVID-19 tracking [[id number]] Collected: 02/22/201044 Order Status: Completed Lab Status: Final result Updated: 02/23/20851 Specimen: Tissue from Nasopharynx [facility] COVID STAT instruction -- Radiology results (more choices using dot risresults) No results found. Portions of this chart may have been created with [employer] voice recognition software. Occasi onal wrong-word or sound-alike substitutions may have occurred due to the inherent owen itations of voice recognition software. Please read the chart carefully and recognize, using context, where these substitutions have occurred Keyur Sharma M D - 02/22/2020 7:55 PM PDT [facility] PMG Hospitalist Progress Note Ángela Crowley is a 89 y.o. female ASSESSMENT and PLAN: Active Hospital Problems Arm DVT (deep venous thromboembolism), acute, left Patient with history of DVT initiated on apixaban 5 mg twice daily for the first 72 hours t hen 2.5 mg twice daily discontinued yesterday a.m. for possible surgery planned to debride t he patient's sacral local wound care wound care is necessary and discussed with her son devi felixion of apixaban versus continued holding it further conversation with Dr. Diaz. After reviewing treatment options including surgical debridement which is believed to be the best treatment for wound healing by general surgery, bedside debridement to facilitate wound care , versus continued current care with padding only by the son states that he will not allow s urgery and thus I am going to restart her apixaban at 2.5 mg twice daily. Because of her hi gh risk for bleeding and the fact the PICC line is been removed I believe the 2.5 mg dose is appropriate. Hgb today is 9.1. Sacral decubitus wound Discussed with patient's son the Requirements for wound healing including removal of devit alized and/or infected tissue, nutrition, and relief of pressure causing further skin necros is. Discussed the fact the previously with a superficial wound in the hospital his mother w as treated with alternating pressure and foam pads for protection. As this wound is gotten deeper secondary to pressure necrosis then more advanced methods for relief of pressure are necessary and that documenting the depth/extent with adequate debridement will allow us to c onsider pressure relieving options such as alternating pressure mattress, bed that allows ch yoav in bed mobility i.e. hospital bed, and pressure relieving seat such as roho seat. Currently patient has a overlying area of necrotic tissue which appears to have had a Q-tip pushed through it and below this is a space with underlying necrosis. I have asked him to allow surgeon to debride at the bedside this necrotic area of skin and other devitalized tis swetha to facilitate adequate wound care. Contacted Dr. Diaz who is willing tomorrow to cons ider this approach I did review with patient's son that the general surgeon is recommending as a first-line re commendation surgical debridement but that if he feels this is not appropriate given the lif e situation of his mother then a secondary option would be the bedside debridement. Otherwi se dietary continues to follow the patient and once we have better visualization of the woun d will work with PT/OT to develop a home plan for pressure relief of the wound. I examined the patient's area surrounding the tissue necrosis it does not appear there is i f he significant cellulitis however certainly there could be deep pus in that the wound is n ot been visualized. She continues on oral Bactrim and IV Unasyn. Iron deficiency anemia Stable Hyperkalemia Early in the patient's course she had a potassium of 5.6. On a potassium restricted diet b ut has nutritional issues and does enjoy some's with moderate amounts of potassium. We will continue to watch daily potassium and expand her diet to hopefully improve nutrition. SUBJECTIVE: Patient reports she is not short of breath and denies significant pain. Denies nausea or abdominal pain. VITALS: Temp: 37.7 C (99.8 F), Pulse: 98, Resp: 20, BP: 104/55, SpO2 96 % on nasal cannula at f low rate 2L/min Temp Min: 36.7 C (98 F) Max: 37.7 C (99.8 F) Weight: 51.3 kg (113 lb) Intake/Output Summary (Last 24 hours) at 02/22/20201954 Last data filed at 02/22/2020 1900 Gross per 24 hour Intake 552 ml Output 875 ml Net -323 ml PHYSICAL EXAM: General: Conversant and appropriate but hard of hearing. Cardiovascular: Regular rate and rhythm Respiratory: Diminished but otherwise clear Abdomen: Soft and nontender Extremities: without pedal edema Skin: Examination of the decubitus area does show an area of eschar in the area of broken e schar it does appear that there is a deeper wound that the eschar could with removal facilit ate wound care. Initial erythema seen around the patient's wound from February 14 is improved to my exam today. DIAGNOSTIC STUDIES: Available data and images were reviewed personally. Significant results and findings are a ddressed here or in the Assessment and Plan. Lab Results Component Value Date HGB 9.1 (L) 02/22/2020 HCT 29.0 (L) 02/22/2020 PLT 181 02/22/2020 WBC 11.0 02/22/2020 Lab Results Component Value Date NA 141 02/22/2020 K 4.5 02/22/2020 CL 106 02/22/2020 CO2 32 (H) 02/22/2020 CREA 0.96 02/22/2020 BUN 29 (H) 02/22/2020 MG 2.2 02/22/2020 CRP 99.10 (H) 01/31/2020 ESR 4 06/06/2019 BNP 360 (H) 02/21/2020 Glucose, POC Date/Time Value Ref Range Status 02/22/2020 04:44 PM 133 (H) 70 - 109 mg/dL Final 02/22/2020 11:53 AM 192 (H) 70 - 109 mg/dL Final 02/22/2020 06:32 AM 91 70 - 109 mg/dL Final Glucose, POC Date/Time Value Ref Range Status 02/22/2020 04:44 PM 133 (H) 70 - 109 mg/dL Final 02/22/2020 11:53 AM 192 (H) 70 - 109 mg/dL Final 02/22/2020 06:32 AM 91 70 - 109 mg/dL Final No results found. Total time of approximately 40 minutes was spent with the patient and/or patient's family, and/or on the patient's floor/unit, of which more than 50% was spent counseling and/or coord ination the patient's care as outlined above. Keyur Carvajal MD 02/22/2020 7:[address] [facility] Portions of this chart may have been created with [employer] voice recognition software. Occasi onal wrong-word or sound-alike substitutions may have occurred due to the inherent owen itations of voice recognition software. Please read the chart carefully and recognize, using context, where these substitutions have occurred Devorah Daly RN - 02/22/2020 3:57 PM Drew here and examined patient and sacral wound at [facility]. Telephone call to pts son Yadiel who is POA. Yadiel gave permission to have sacral wou nd debrided at bedside, verbal consent verified by this Rn. Devorah Daly RN - 02/22/2020 2:46 PM PDTReturned call to pts son Yadiel at his request. Yadiel states he does not want to have his Mom have surgery on her sacral wound. Yadiel states he wants her IV antibiotics c ontinued then switched to oral on Fri and would like her discharged home on . [place] cruz also requests to have Dr Carvajal call him when able. and informed of t his conversation. otter, Benjamin Dyer MD - 02/21/2020 5:23 PM PDTFormatting of this note might be differ ent from the original. [place], [place] PROGRESS NOTE Patient: Ángela Crowley : 1930: Age: 89 y.o. MedRec: [id number] Admission date: 02/09/2020 Hospital day # : 11 Physician author: Benjamin Diaz MD Today: 02/21/2020 Assessment and Hospital Course Active Hospital Problems Diagnosis Arm DVT (deep venous thromboembolism), acute, left Iron deficiency anemia due to chronic blood loss Resolved Hospital Problems No resolved problems to display. 89-year-old female admitted on February 09, 2020 with left upper extremity DVT requiring anticoag ulation in the context of multiple other comorbid medical conditions including COPD and [employer] xiomy pressure ulcer of the sacral region who has failed to respond to nonoperative treatment of the decubitus ulcer. She continues to show signs of leukocytosis consistent with possibl e infectious source. She has no other identifiable ongoing infection at this time, but the decubitus ulcer continues to deteriorate with fibrinopurulent drainage and erythema. Plan Discussed my impression and findings with the patient and her attending physician in detail . Also spoke to her son, Yadiel, who is her power of privacy attorney via telephone this afternoon . I explained that this is my initial examination but compared my findings to those documen yoel by my colleague, Dr. Thrasher, in his initial consultation dated February 12, 2020. At this raudel e the lesion appears to be progressing and grossly appears to be infected. I doubt abscess currently. Nevertheless, I believe the wound is larger with some early signs of undermining at this time and progressive erythema. I am also somewhat concerned that the depth of the ulcer may involve fascia and even periosteum. In my opinion, the wound would require surgic al debridement at this stage. However, I clearly explained that surgical debridement would result in an even larger wound that may very well not heal. She could also require further surgical debridement and/or surgeries for wound coverage or closure in the future. Regardle ss, she is relatively high risk for any operation which I discussed with her son. She also would require long-term wound care including initial packing changes followed likely by a wo und VAC device. Such wound care may relegate her to a halfway facility for some per iod of time prior to her return home from the hospital. Patient expressed to me some unwill ingness to do so, and she would clearly prefer to be discharged home from the hospital when she is ready. She and her son also understand that her hospitalization will be prolonged by the above procedure while we attend to the wound. The risks of the surgery including but n ot limited to anesthesia, respiratory failure, need for prolonged intubation, bleeding, infe ction, progressive infection, significant pain, decreased mobility, further tissue loss, and even were explained in detail. Location of the wound as well as the patient's body h abitus with significant bony prominences and chronic protein malnutrition will greatly imped e wound healing if not completely prevent closure at some point. I clearly explained that t he wound would take at least months to heal, and she has a significantly high risk of never healing the wound at which point she is left with a chronic open sore. The alternative of n onoperative management, in my opinion, will again likely leave the patient with an open nonh ealing wound with significant potential for progressive infection. All questions were answe red to the patient's satisfaction as well as Yadiel's satisfaction. Yadiel voiced underst anding. The patient's baseline mental status impairs her ability to have significant insigh t into the situation based on my discussion with her today. Her son wished to discuss the s ituation with other family members. We will speak again tomorrow. In the interim we will h old her anticoagulation therapy in anticipation of surgical intervention potentially on February 23, 2020. I explained that withholding her anticoagulation could potentially raise her risk of progression of her DVT with or without pulmonary embolism. However, her bleeding risk i s significant for such an operation while on anticoagulation. Yadiel was agreeable to stop ping her anticoagulation at this time. We will reevaluate tomorrow and proceed accordingly. Benjamin Diaz MD 02/21/2020 5:[address] [facility] Subjective CC wants to go home ROS See above Exam General elderly thin patient sitting at the bedside in no acute distress., She appears chr onically ill Cardiac no tachycardia Extremities relatively emaciated with bony prominences. No significant edema. Lung and his breath sounds but no audible wheezes currently Abdominal scaphoid and nontender Examination of the sacrococcygeal area reveals an obvious decubitus ulcer with mild soft ti ssue edema and surrounding erythema measuring approximately 4 cm x 6 cm. Mild undermining n oted but no tracts. Total depth cannot be ascertained, but the base of the ulcer clearly has significant fibrinopurulent exudate. No expressible pus. Entire area is tender to palpati on. Neuro moves all extremities Objective Data Vitals Ranges: Temp: [36.5 C (97.7 F)-37.2 C (99 F)] 36.5 C (97.7 F) Pulse: [87-103] 93 Resp: [20-36] 20 BP: (109-146)/(52-81) 121/81 Vitals: Temp: 36.5 C (97.7 F) BP: 121/81 Pulse: 93 Resp: 20 SpO2: 95 % SpO2 95 % on nasal cannula at flow rate 2L/min Allergies: Allergies Allergen Reactions Flagyl [Metronidazole] Nausea And Vomiting and GI Upset Percocet [Oxycodone] Unknown Pregabalin Unknown Lyrica Current Medications: Current Facility-Administered Medications Medication Dose Route Frequency Provider Last Rate Last Dose acetaminophen (TYLENOL) tablet 500 mg 500 mg Oral Q6H PRN Anna Hastings MD 500 mg a t 02/14/20 1648 albuterol 2.5 mg/3 mL nebulizer solution 2.5 mg 2.5 mg Nebulization Q4H PRN Anna powell MD albuterol 2.5 mg/3 mL nebulizer solution 2.5 mg 2.5 mg Nebulization RT Q6H Anna condon MD 2.5 mg at 02/21/20 1435 alteplase (CATHFLO ACTIVASE) injection 2 mg 2 mg Intracatheter PRN Bruce Cochran MD aluminum & magnesium hydroxide-simethicone (MAALOX PLUS REGULAR STRENGTH) 200-200-20 mg /5 mL suspension 30 mL 30 mL Oral Q4H PRN Chace Higuera MD ampicillin-sulbactam (UNASYN) 3 g in sodium chloride 0.9% 100 mL IVPB 3 g Intravenous 2 times per day Chace Higuera MD 200 mL/hr at 02/21/20 0844 3 g at 02/21/20 0844 ascorbic acid (VITAMIN C) tablet 1,000 mg 1,000 mg Oral Daily Anna Hastings MD 1,00 0 mg at 02/21/20 0850 atorvaSTATin (LIPITOR) tablet 20 mg 20 mg Oral Nightly Anna Hastnigs MD 20 mg at 215 brimonidine (ALPHAGAN) 0.2% ophthalmic solution 1 drop 1 drop Both Eyes BID Anna powell MD 1 drop at 02/21/20 0847 budesonide (PULMICORT) nebulizer solution 0.5 mg 0.5 mg Nebulization RT BID Bruce lynne MD 0.5 mg at 02/21/20 0910 bumetanide (BUMEX) tablet 1 mg 1 mg Oral BID (8 and 16) Bruce Cochran MD 1 mg at 0 02/21/20 1631 calcium carbonate (TUMS) chewable tablet 1,000 mg 1,000 mg Oral BID PRN Anna Hastings MD 1,000 mg at 02/17/20 1647 carvedilol (COREG) tablet 6.25 mg 6.25 mg Oral BID WC Anna Hastings MD 6.25 mg at 0 02/21/20 1631 cholecalciferol (VITAMIN D-3) tablet 1,000 Units 1,000 Units Oral Daily Anna Hastings MD 1,000 Units at 02/21/20 0850 collagenase (SANTYL) ointment Topical BID Keyur Thrasher MD dextrose 50% injection 12.5-25 g 12.5-25 g Intravenous PRN Anna Hastings MD And dextrose 10% (D10W) infusion Intravenous Continuous PRN Anna Hastings MD dicyclomine (BENTYL) capsule 10 mg 10 mg Oral Daily PRN Anna Hastings MD docusate sodium (COLACE) capsule 300 mg 300 mg Oral BID PRN Anna Hastings MD dorzolamide (TRUSOPT) 2% ophthalmic solution 1 drop 1 drop Both Eyes BID Anna Hastings MD 1 drop at 02/21/20 0848 escitalopram (LEXAPRO) tablet 15 mg 15 mg Oral Daily Anna Hastings MD 15 mg at 0505/25 0849 famotidine (PEPCID) tablet 20 mg 20 mg Oral Nightly Anna Hastings MD 20 mg at 02/19 2154 ferrous sulfate tablet 325 mg 325 mg Oral Daily with breakfast Anna Hastings MD 325 mg at 02/21/20 0850 fluticasone (FLONASE) 50 mcg/nasal spray 1 spray 1 spray Nasal Daily PRN Anna Hastings MD HYDROcodone-acetaminophen (NORCO) 5-325 mg per tablet 1-2 tablet 1-2 tablet Oral Q6H P RN Chace Higuera MD 1 tablet at 02/21/20 1459 insulin lispro (humaLOG KWIKPEN) injection (pen) 0-6 Units 0-6 Units Subcutaneous 4x D aily WC and HS Anna Hastings MD 2 Units at 02/21/20 1629 lactobacillus GG (CULTURELLE) capsule 1 capsule 1 capsule Oral BID Anna Hastings MD 1 capsule at 02/21/20 0850 latanoprost (XALATAN) 0.005% ophthalmic solution 1 drop 1 drop Both Eyes Nightly Rebeca Hastings MD 1 drop at 02/20/20 2155 LORazepam (ATIVAN) tablet 0.5 mg 0.5 mg Oral Q8H PRN Chace Higuera MD melatonin tablet 3 mg 3 mg Oral Nightly PRN Anna Hastings MD nitroglycerin (NITROSTAT) SL tablet 0.4 mg 0.4 mg Sublingual Q5 Min PRN Anna Hastings MD nystatin (MYCOSTATIN) cream Topical BID Chace Higuera MD pantoprazole (PROTONIX) DR tablet 40 mg 40 mg Oral QAM AC Anna Hastings MD 40 mg at 02/21/20 0633 Patient own medication - Brovana 15 mcg/2 mL nebulizer 15 mcg Nebulization RT BID Nguyễn Cochran MD 15 mcg at 02/21/20 0910 polyethylene glycol (MIRALAX) powder 17 g 17 g Oral Daily PRN Anna Hastings MD polyvinyl alcohol (LIQUITEARS) 1.4% ophthalmic solution 2 drop 2 drop Both Eyes QAJazz Hastings MD 2 drop at 02/21/20 0844 predniSONE (DELTASONE) tablet 10 mg 10 mg Oral Daily Chace Higuera MD 10 mg a t 02/21/20 0851 prochlorperazine tablet 10 mg 10 mg Oral Q8H PRN Anna Hastings MD senna (SENOKOT) tablet 8.6 mg 8.6 mg Oral BID PRN Anna Hastings MD 8.6 mg at 2049 sodium chloride (OCEAN) 0.65% nasal spray 2 spray 2 spray Each Nare Q1H PRN Anna powell MD [START ON 02/22/2020] sulfamethoxazole-trimethoprim (BACTRIM DS) 800-160 mg per tablet 2 tablet 2 tablet Oral Daily Markus Ott, Michaela traZODone (DESYREL) tablet 50 mg 50 mg Oral Nightly PRN Chace Higuera MD Current Infusions: dextrose 10% Point of care glucose Recent Labs Lab 02/21/20 1628 02/21/20 1134 02/21/20 0631 02/20/20 2157 02/20/20 1702 02/20/20 1135 POCGLU 223* 141* 92 76 266* 124* Labs last 24 hours Recent Results (from the past 24 hour(s)) POC Glucose Collection Time: 02/20/20 9:57 PM Result Value Ref Range Glucose, POC 76 70 - 109 mg/dL CBC no Differential Collection Time: 02/21/20 5:51 AM Result Value Ref Range WBC 13.7 (H) 4.0 - 11.0 K/uL RBC 3.00 (L) 3.70 - 5.20 M/uL Hemoglobin 9.1 (L) 11.5 - 16.0 g/dL Hematocrit 29.2 (L) 34.0 - 47.0 % MCV 97.3 83.0 - 101.0 fL MCH 30.3 28.0 - 35.0 pg MCHC 31.2 (L) 32.0 - 36.0 g/dL RDW-CV 17.2 (H) <15.0 % RDW-SD 61.1 (H) 35.1 - 46.3 fL Platelet Count 180 140 - 440 K/uL MPV 10.3 6.5 - 12.4 fL % nRBC 0 0 - 2 per 100 WBCs Absolute nRBC 0.00 0.00 - 0.01 K/uL B Type Natriuretic Peptide Collection Time: 02/21/20 5:51 AM Result Value Ref Range BNP 360 (H) <100 pg/mL Comprehensive Metabolic Panel Collection Time: 02/21/20 5:51 AM Result Value Ref Range Na 141 136 - 145 mmol/L K 4.3 3.4 - 5.1 mmol/L Cl 103 98 - 107 mmol/L CO2 35 (H) 20 - 31 mmol/L Anion Gap 3 3 - 16 mmol/L Glucose 82 60 - 106 mg/dL BUN 31 (H) 9 - 23 mg/dL Creatinine 0.96 0.55 - 1.02 mg/dL eGFR if not 55 (L) >=60 mL/min/1.73m2 Calcium 8.4 (L) 8.7 - 10.4 mg/dL Albumin 2.9 (L) 3.2 - 4.8 g/dL Bilirubin Total 0.4 0.3 - 1.2 mg/dL Total Protein 4.9 (L) 5.7 - 8.2 g/dL AST 33 0 - 34 U/L ALT 58 (H) 10 - 49 U/L Alkaline Phosphatase 81 46 - 116 U/L Globulin 2.0 (L) 2.1 - 3.8 g/dL Albumin/Globulin Ratio 1.5 0.8 - 1.9 BUN/Creatinine Ratio 32.3 Magnesium Collection Time: 02/21/20 5:51 AM Result Value Ref Range Magnesium 2.3 1.6 - 2.6 mg/dL POC Glucose Collection Time: 02/21/20 6:31 AM Result Value Ref Range Glucose, POC 92 70 - 109 mg/dL POC Glucose Collection Time: 02/21/20 11:34 AM Result Value Ref Range Glucose, POC 141 (H) 70 - 109 mg/dL POC Glucose Collection Time: 02/21/20 4:28 PM Result Value Ref Range Glucose, POC 223 (H) 70 - 109 mg/dL Micro results (more choices using dot micro) Microbiology Results (72 hrs) Procedure Component Value Units Date/Time Culture, Blood [[id number]] Collected: 02/20/20 0819 Order Status: Completed Lab Status: Preliminary result Updated: 02/20/202050 Specimen: Blood Culture No growth: Monitored continually by instrument for 5 days Culture, Blood [[id number]] Collected: 02/20/20 0628 Order Status: Completed Lab Status: Preliminary result Updated: 02/20/20 184 Specimen: Blood Culture No growth: Monitored continually by instrument for 5 days Radiology results (more choices using dot risresults) No results found. Portions of this chart may have been created with Dragon voice recognition software. Occasi onal wrong-word or sound-alike substitutions may have occurred due to the inherent owen itations of voice recognition software. Please read the chart carefully and recognize, using context, where these substitutions have occurred erry, Chace hein MD - 02/21/2020 10:41 AM PDTFormatting of this note might be different from the [place], [place] HOSPITALIST PROGRESS NOTE Patient: Ángela Crowley : 1930: Age: 89 y.o. MedRec: [id number] PCP: Candido Link MD Admission date: 02/09/2020 Hospital day # : 11 Physician author: Chace Higuera MD Today: 02/21/2020 Assessment and Hospital Course Active Hospital Problems Diagnosis Arm DVT (deep venous thromboembolism), acute, left Iron deficiency anemia due to chronic blood loss Resolved Hospital Problems No resolved problems to display. 89F PMHx COPD on 2-3L NC Home O2, TAVR, CHFpEF, presented from home with acute metabolic en cephalopathy 2/2 medications vs infectious process. Treating cellulitis and infected sacral decubitus ulcer likely 2/2 MRSA. Hospital course complicated by worsening left arm swelling, first US of LUE on 02/06 negative for DVT, repeat 02/08 revealed extensive DVT and started on e liquis. Plan #Acute left arm DVT found on 02/08 Continue eliquis 2.5mg BID, swelling in left arm has resolved. Noted to be able to have sacral ulcer debridement on apixaban if indicated, debridement can be approached in outpatient setting with surgery outpatient. Discussed case for debridment of sacral ulcer with Dr. Diaz and would recommend to hold e liquis prior to procedure Expect 3 months anticoagulation on eliquis #Sepsis 2/2 Cellulitis of stage 3 sacral decubitus ulcer, chronic Changed back to bactrim on 02/14. Clindamycin on since 02/12. Given resistance on Wound cultu re to clindamycin changed to bactrim only. Dr. Thrasher consulted for general surgery, possible debridement in around 1 week if patient continued inpatient, otherwise per discussion with Dr. Thrasher would recommend continued woun d care with santyl and continued antibiotics to follow up outpatient with general surgery fo r outpatient debridement in 1-2 weeks. Can attempt to approach debridement if patient in hos pital after the weekend if applicable -02/15 Wound Culture Enterococcus faecalis and likely timbo. Susceptible to penicillins -continue santyl and nystatin -Changed augmentin to IV unasyn on 02/19 due to worsening leukocytosis Rpt BCxs 02/19 NGTD -continue bactrim -Requiring prolonged course of antibiotics -F/u surgery recs for debridement, holding eliquis for 48 hours to prep for possible debrid ement as per surgery recs. #Leukocytosis, worsening Afebrile however has persistent fluctuating leukocytosis during hospitalization. Possibly r elated to steroids vs infection vs reactive, patient is malnourished, also possibly related to DVT. Decreased prednisone back to 10mg daily on 02/16, continued to tolerate lower home do se. 02/19: WBC 14.0, no new sign of infection, multiple causes for elevation noted including inf ection, reactive, malnutrition, PRBC given, steroids. Reordered 02/19 Blood cultures given wo rsening leukocytosis 02/20: WBC 13.7, afebrile. Sacral ulcer continued evidence of discharge with poor healing cu rrently. -f/u Repeat Blood cultures. Continue bactrim and IV unasyn (started 02/19) -continue to monitor daily -Continue prednisone 10mg daily, home dose #Iron deficiency anemia No obvious source of bleeding noted on EGD/Colonoscopy performed in 2018, possible AVMs Continue ferrous sulfate Recommended to transfuse <7.0 hgb, the POA however would like blood transfusions <8.0 1U PRBC given on 02/06 and repeat 1 U PRBC given 02/16 02/18 Hgb 9.5 from 10.2, monitor daily 02/19: Hgb 9.0 02/20: Hgb 9.1 #Elevated ALT/AST, stable Likely 2/2 CHF, will hold on imaging for now and continue to monitor, no sign of pancreatit is, bile duct obstruction, or cholecystitis. 02/18: AST/ALT stable, abdominal pain resolved 02/19: AST/ALT downtrend, likely was 2/2 fluid overload, will continue to trend. No abdomina l pain 02/20: AST/ALT stable, no further trend necessary at this time, no abdominal pain #Hx of TAVR for #Hx of CAD #CHFpEF exacerbation CHF currently stable with lasix regimen given during hospital stay. Was changed to bumex on 02/12 tolerating well. Continued stable on home regimen of 2L NC oxygen. Reviewed 02/13 ECHO no significant changes noted. BNP increased on 02/17, likely after 1U PRBC given on 02/16. Improved to BNP 360 from 301. -lipitor -bumex 1mg BID -Coreg 6.25mg BID -on baseline 2L NC #FAITH resolved #Hypernatremia resolved #Acute metabolic encephalopathy, stable noted likely at baseline, delirium precautions, lexapro #malnutrition I attest that this clinical assessment using ASPEN criteria 1is accurate for this patient and supports that as a medical diagnosis.A specific nutrition treatment plan will be im [...] depletion Muscle Mass: Severe depletion DVT PPx: eliquis GI PPx: pepcid Diet: general dysphagia mechanical, thin liquids allowed, low sodium 2gm, 1800ml fluid rest rict Dispo: med/tele. Possible in 2-3 days depending on WBC count and infection improvement. and if able to be taken care of at home. OMARI Tavera (Son) [phone] (H) [employer] cell phone ([employer]) Chace Higuera MD 02/21/2020 10:[address] [facility] Subjective CC Hgb 9.1 from 9.0. WBC 13.7 from 14.0. Continued slow process. On IV Unasyn for enterococcus and oral bactrim for MRSA. Continued Santyl and Nystatin creams and wound care. Will follow up with Surgery today. Afebrile overnight. Shortness of breath stable, on 2L NC no changes. Patient is tired of being in the hospital and wants to go home and take oral antibiotics at home. Noted on 02/19 son wants CBC twice per day? Called son at 1230pm Discussed antibiotics and wound care and will continue to make sure leukocytosis improves. Asked if surgery does decide to do debridement to have them call him for consent and smith myers. ROS See above Objective Exam General NAD, AOx2, able to say place but not time Hard of hearing Cardiac RRR, no murmurs rubs or gallups Extremities No edema Lung Mild dry crackles bases bilaterally, on 2L NC with normal respirations Abdominal Soft, NT, ND, NBS Neuro Generalized weakness slowly improving, 5/5 MS all extremities, AOx2 not time Sacral Ulcer Continued Wound care, continued erythema surrounding fibrous white tissue, white discharge noted in center. no sign of ischemia/necrosis. February 10 February 14 Consent for Photo on February 10 and February 14 The patient was advised that digital photos will be taken today of Ángela Crowley.The patient verbally consented to having these photos taken for purposes of documenting his/her condition.The patient understands that the images will be stored in their medical record . See Photographs in the Media tab which is located in Chart Review. The Document type is Clinical Image [employer]. Some photographs may also appear in certain notes from this encounter. Echo February 13 Summary Left ventricle is normal in size and function. There is mild concentric hypertrophy ejection fraction is estimated at 65%. 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 No insufficiency is noted. Structurally normal tricuspid valve with mild to moderate insufficiency and peak velocity consistent with RVSP 41-46 mmHg. Left atrium is mildly enlarged. Compared with patient's last echocardiogram, aortic valve gradient is slightly higher. Otherwise no significant changes are noted. Signature Electronically signed by GLENDA STRATTON Serial weights: Filed Weights: 02/09/20 1836 02/10/20 0304 02/11/20 0540 02/13/20 0322 Weight: 51.3 kg (113 lb) 52.7 kg (116 lb 1.6 oz) 49.2 kg (108 lb 6.4 oz) 46.6 kg (102 lb 11 .8 oz) 02/15/20 0600 02/15/20 2118 02/17/20 0257 02/18/20 0434 Weight: 46 kg (101 lb 6.6 oz) 46 kg (101 lb 6.6 oz) 45.3 kg (99 lb 14.4 oz) 42 kg (92 lb 9. 5 oz) 02/18/20 1231 02/19/20 0207 02/20/20 0517 02/21/20 0506 Weight: 42 kg (92 lb 9.5 oz) 43.5 kg (95 lb 14.4 oz) 41.8 kg (92 lb 2.4 oz) 41.8 kg (92 lb 2.4 oz) Most recent weight: Input and output 2 shifts and 3 shifts: Wt Readings from Last 1 Encounters: 02/21/20 41.8 kg (92 lb 2.4 oz) I/O last 24 Hours: In: 1317 [P.O.:1317] Out: 476 [Urine:475; Stool:1] I/O last 3 completed shifts: In: 1889 [P.O.:1889] Out: 476 [Urine:475; Stool:1] Vitals Ranges: Temp: [36.8 C (98.3 F)-37.2 C (99 F)] 37.2 C (99 F) Pulse: [82-103] 88 Resp: [18-36] 20 BP: (98-146)/(52-77) 111/56 Vitals: Temp: 37.2 C (99 F) BP: 111/56 Pulse: 88 Resp: 20 SpO2: 95 % SpO2 95 % on nasal cannula at flow rate 2L/min Diet and Supplements Diet Diet general; dysphagia mechanical; thin liquids allowed; sodium restricted 2 gm; 1800 ml fluid; potassium 3 gm K; Effective Now Number of Occurrences: Until Specified Order Comments: RED TRAY for good set up and intermittent supervision. 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 Thin liquids. Straws ok. Order Questions: Type Diet general Texture modifications dysphagia mechanical Fluid consistency modifications thin liquids allowed sodium restictions sodium restricted 2 gm fluid volume restictions 1800 ml fluid renal modifications potassium 3 gm K Nourishments Dietary nutrition supplements Boost; 1 Can Number of Occurrences: Until Specified Order Comments: With meals Order Questions: Supplement Boost Volume: 1 Can Objective Data Allergies: Allergies Allergen Reactions Flagyl [Metronidazole] Nausea And Vomiting and GI Upset Percocet [Oxycodone] Unknown Pregabalin Unknown Lyrica Current Medications: Current Facility-Administered Medications Medication Dose Route Frequency Provider Last Rate Last Dose acetaminophen (TYLENOL) tablet 500 mg 500 mg Oral Q6H PRN Anna Hastings MD 500 mg a t 02/14/20 1648 albuterol 2.5 mg/3 mL nebulizer solution 2.5 mg 2.5 mg Nebulization Q4H PRN Anna powell MD albuterol 2.5 mg/3 mL nebulizer solution 2.5 mg 2.5 mg Nebulization RT Q6H Anna condon MD 2.5 mg at 02/21/20 0909 alteplase (CATHFLO ACTIVASE) injection 2 mg 2 mg Intracatheter PRN Bruce Cochran MD aluminum & magnesium hydroxide-simethicone (MAALOX PLUS REGULAR STRENGTH) 200-200-20 mg /5 mL suspension 30 mL 30 mL Oral Q4H PRN Chace Higuera MD ampicillin-sulbactam (UNASYN) 3 g in sodium chloride 0.9% 100 mL IVPB 3 g Intravenous 2 times per day Chace Higuera MD 200 mL/hr at 02/21/20 0844 3 g at 02/21/20 0844 apixaban (ELIQUIS) tablet 2.5 mg 2.5 mg Oral BID Bruce Cochran MD 2.5 mg at 0851 ascorbic acid (VITAMIN C) tablet 1,000 mg 1,000 mg Oral Daily Anna Hastings MD 1,00 0 mg at 02/21/20 0850 atorvaSTATin (LIPITOR) tablet 20 mg 20 mg Oral Nightly Anna Hastings MD 20 mg at 2154 brimonidine (ALPHAGAN) 0.2% ophthalmic solution 1 drop 1 drop Both Eyes BID Anna powell MD 1 drop at 02/21/20 0847 budesonide (PULMICORT) nebulizer solution 0.5 mg 0.5 mg Nebulization RT BID Bruce lynne MD 0.5 mg at 02/21/20 0910 bumetanide (BUMEX) tablet 1 mg 1 mg Oral BID (8 and 16) Bruce Cochran MD 1 mg at 0 02/21/20 0851 calcium carbonate (TUMS) chewable tablet 1,000 mg 1,000 mg Oral BID PRN Anna Hastings MD 1,000 mg at 02/17/20 1647 carvedilol (COREG) tablet 6.25 mg 6.25 mg Oral BID WC Anna Hastings MD 6.25 mg at 0 02/21/20 0851 cholecalciferol (VITAMIN D-3) tablet 1,000 Units 1,000 Units Oral Daily Anna Hastings MD 1,000 Units at 02/21/20 0850 collagenase (SANTYL) ointment Topical BID Keyur Thrasher MD dextrose 50% injection 12.5-25 g 12.5-25 g Intravenous PRN Anna Hastings MD And dextrose 10% (D10W) infusion Intravenous Continuous PRN Anna Hastings MD dicyclomine (BENTYL) capsule 10 mg 10 mg Oral Daily PRN Anna Hastings MD docusate sodium (COLACE) capsule 300 mg 300 mg Oral BID PRN Anna Hastings MD dorzolamide (TRUSOPT) 2% ophthalmic solution 1 drop 1 drop Both Eyes BID Anna Hastings MD 1 drop at 02/21/20 0848 escitalopram (LEXAPRO) tablet 15 mg 15 mg Oral Daily Anna Hastings MD 15 mg at 02/03 05/25 0849 famotidine (PEPCID) tablet 20 mg 20 mg Oral Nightly Anna Hastings MD 20 mg at 02/19 2154 ferrous sulfate tablet 325 mg 325 mg Oral Daily with breakfast Anna Hastings MD 325 mg at 02/21/20 0850 fluticasone (FLONASE) 50 mcg/nasal spray 1 spray 1 spray Nasal Daily PRN Anna Hastings MD HYDROcodone-acetaminophen (NORCO) 5-325 mg per tablet 1-2 tablet 1-2 tablet Oral Q6H P RN Chace Higuera MD 1 tablet at 02/21/20 0900 insulin lispro (humaLOG KWIKPEN) injection (pen) 0-6 Units 0-6 Units Subcutaneous 4x D aily WC and HS Anna Hastings MD 3 Units at 02/20/20 1750 lactobacillus GG (CULTURELLE) capsule 1 capsule 1 capsule Oral BID Anna Hastings MD 1 capsule at 02/21/20 0850 latanoprost (XALATAN) 0.005% ophthalmic solution 1 drop 1 drop Both Eyes Nightly Rebeca Hastings MD 1 drop at 02/20/20 2155 LORazepam (ATIVAN) tablet 0.5 mg 0.5 mg Oral Q8H PRN Chace Higuera MD melatonin tablet 3 mg 3 mg Oral Nightly PRN Anna Hastings MD nitroglycerin (NITROSTAT) SL tablet 0.4 mg 0.4 mg Sublingual Q5 Min PRN Anna Hastings MD nystatin (MYCOSTATIN) cream Topical BID Chace Higuera MD pantoprazole (PROTONIX) DR tablet 40 mg 40 mg Oral QAM AC Anna Hastings MD 40 mg at 02/21/20 0633 Patient own medication - Brovana 15 mcg/2 mL nebulizer 15 mcg Nebulization RT BID Nguyễn Cochran MD 15 mcg at 02/21/20 0910 polyethylene glycol (MIRALAX) powder 17 g 17 g Oral Daily PRN Anna Hastings MD polyvinyl alcohol (LIQUITEARS) 1.4% ophthalmic solution 2 drop 2 drop Both Eyes QAM Li ara Hastings MD 2 drop at 02/21/20 0844 predniSONE (DELTASONE) tablet 10 mg 10 mg Oral Daily Chace Higuera MD 10 mg a t 02/21/20 0851 prochlorperazine tablet 10 mg 10 mg Oral Q8H PRN Anna Hastings MD senna (SENOKOT) tablet 8.6 mg 8.6 mg Oral BID PRN Anna Hastings MD 8.6 mg at 2050 sodium chloride (OCEAN) 0.65% nasal spray 2 spray 2 spray Each Nare Q1H PRN Anna powell MD sulfamethoxazole-trimethoprim (BACTRIM DS) 800-160 mg per tablet 1 tablet 1 tablet Ora l Daily Markus Ott, PharmD 1 tablet at 02/21/20 0850 traZODone (DESYREL) tablet 50 mg 50 mg Oral Nightly PRN Chace Higuera MD Current Infusions: dextrose 10% Hematology and anemia Recent Labs Lab 02/21/20 0551 02/20/20 0547 02/19/20 0535 WBC 13.7* 14.0* 13.0* HGB 9.1* 9.0* 9.5* HCT 29.2* 28.7* 30.5* PLT 180 190 217 No results for input(s): PROTIME, INR, PTT in the last 168 hours. No results for input(s): IRON, TIBC, PCTSAT, FERRITIN, TSH, [id number], FOLATE in the last 168 hours. Inflammatory markers No results for input(s): LACTATE, PROCALCITONI, CRP, ESR in the last 168 hours. Chemistry Recent Labs Lab 02/21/20 0502/20/20 0547 02/19/20 0535 GLU 82 79 78 NA 141 140 140 K 4.3 4.7 4.7 CL 103 104 102 CO2 35* 34* 35* ANIONGAP 3 2* 3 BUN 31* 31* 30* CREA 0.96 0.93 0.93 GFRNONAA 55* 57* 57* CALCIUM 8.4* 8.6* 8.7 ALBUMIN 2.9* 2.8* 2.9* TOTALPROTEIN 4.9* 4.9* 5.0* BILITOT 0.4 0.3 0.4 ALKPHOS 81 77 82 ALT 58* 53* 61* AST 33 34 38* Recent Labs Lab 02/21/20 0551 02/20/20 0547 02/19/20 0535 MG 2.3 2.3 2.2 Recent Labs Lab 02/18/20 0623 LIPASE 44 No results for input(s): TRIG, CHOL, HDL, LDL in the last 168 hours. No results for input(s): AMMONIA in the last 168 hours. Cardiology & Digoxin Recent Labs Lab 02/21/20 0551 02/20/20 0547 02/19/20 0535 02/18/20 0623 02/17/20 0544 BNP 360* 301* 405* 1,058* 526* ABG No results for input(s): PHART, PO2ART, YUC8TTU, IAT8STE, BEART, [id number] in the last 168 h ours. No results for input(s): SPECSOURCE, PHPOCB, PCO2, PO2, HCO3, TCO2, BEART, [id number] in the last 168 hours. Drug of overdose and abuse No results for input(s): ALCOHOL, ACTMN, SALICYLATE in the last 168 hours. No results for input(s): AMPHEQUAL, BARBITURATE, BENZSCR, CANNIBSCR, AMPHETAMINE, METHADSCR , OPIATESCR in the last 168 hours. Urinalysis No results for input(s): GLUCOSEU, WBCUA, RBCUA, SQUAMEPIUA, BACTERIAUA, CULTIF in the last 168 hours. Point of care glucose Recent Labs Lab 02/21/20 0631 02/20/20 2157 02/20/20 1702 02/20/20 1135 02/20/20 0627 02/19/202005 POCGLU 92 76 266* 124* 86 228* Micro results more choices using dot micro (below is last 7 days) Microbiology Results (Last 7) Date with Culture/Sensitivity) Procedure Component Value Units Date/Time Culture, Blood [[id number]] Collected: 02/20/20 0819 Order Status: Completed Lab Status: Preliminary result Updated: 02/20/20 205 Specimen: Blood Culture No growth: Monitored continually by instrument for 5 days Culture, Blood [[id number]] Collected: 02/20/20 0628 Order Status: Completed Lab Status: Preliminary result Updated: 02/20/20 184 Specimen: Blood Culture No growth: Monitored continually by instrument for 5 days Culture, Wound, Smear, w/Anaerobe [[id number]] Collected: 02/16/20 133 Order Status: Sent Lab Status: In process Updated: 02/19/20 1231 Specimen: Tissue from Vertebrae, Sacral Narrative: The following orders were created for panel order Culture, Wound, Smear, w/Anaerobe. Procedure Abnormality Status --------- ------ Culture, Wound, Smear[[id number]] Final result Culture, Anaerobic[[id number]] Normal Preliminary result Please view results for these tests on the individual orders. Culture, Wound, Smear [[id number]] (Susceptibility) Collected: 02/16/201336 Order Status: Completed Lab Status: Final result Updated: 02/19/20 1231 Specimen: Tissue from Vertebrae, Sacral Culture 4+ Enterococcus faecalis Comment: Combination therapy of ampicillin, penicillin, or vancomycin (for susceptible st rains), plus an aminoglycoside, is usually indicated for serious enterococcal infections, hoyos ch as endocarditis, unless high-level resistance to both gentamicin and streptomycin is documented; such combinations are predicted to result in synergistic killin g of the enterococcus. 4+ Timbo albicans Gram Stain Result No white blood cells (PMNs) seen 2+ Yeast with pseudohyphae Susceptibility Enterococcus faecalis (1) Antibiotic Interpretation Microscan Method Status Ampicillin Sensitive <=2 ug/mL Not Specified Final Penicillin G Sensitive 8 ug/mL Not Specified Final Vancomycin Sensitive 1 ug/mL Not Specified Final Culture, Anaerobic [[id number]] (Normal) Collected: 02/16/20 1337 Order Status: Completed Lab Status: Preliminary result Updated: 02/21/20 1011 Specimen: Tissue from Vertebrae, Sacral Culture Culture in progress... Radiology results (more choices using dot risresults) [...] this chart may have been created with [employer] voice recognition software. Occasi onal wrong-word or sound-alike substitutions may have occurred due to the inherent owen itations of voice recognition software. Please read the chart carefully and recognize, using context, where these substitutions have occurred hace Higuera MD - 02/20/2020 11:27 AM PDTFormatting of this note might be different from the origin al. [facility] HOSPITALIST PROGRESS NOTE Patient: Ángela Crowley : 1930: Age: 89 y.o. MedRec: [id number] PCP: Candido Link MD Admission date: 02/09/2020 Hospital day # : 10 Physician author: Chace Higuera MD Today: 02/20/2020 Assessment and Hospital Course Active Hospital Problems Diagnosis Arm DVT (deep venous thromboembolism), acute, left Iron deficiency anemia due to chronic blood loss Resolved Hospital Problems No resolved problems to display. 89F PMHx COPD on 2-3L NC Home O2, TAVR, CHFpEF, presented from home with acute metabolic en cephalopathy 2/2 medications vs infectious process. Treating cellulitis and infected sacral decubitus ulcer likely 2/2 MRSA. Hospital course complicated by worsening left arm swelling, first US of LUE on 02/06 negative for DVT, repeat 02/08 revealed extensive DVT and started on e liquis. Plan #Acute left arm DVT found on 02/08 Continue eliquis 2.5mg BID, swelling in left arm has resolved. Noted to be able to have sacral ulcer debridement on apixaban if indicated, debridement can be approached in outpatient setting with surgery outpatient. 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 Clindamycin on since 02/12. Given resistance on Wound cultu re to clindamycin changed to bactrim only. Dr. Thrasher consulted for general surgery, possible debridement in around 1 week if patient continued inpatient, otherwise per discussion with Dr. Thrasher would recommend continued woun d care with santyl and continued antibiotics to follow up outpatient with general surgery fo r outpatient debridement in 1-2 weeks. Can attempt to approach debridement if patient in hos pital after the weekend if applicable -02/15 Wound Culture Enterococcus faecalis and likely timbo. Susceptible to penicillins -continue santyl and nystatin -Changed augmentin to IV unasyn on 02/19 due to worsening leukocytosis, will monitor. -continue bactrim -Requiring prolonged course of antibiotics. Once discharged likely will need 7-10 days of o ral antiiotics #Leukocytosis, worsening Afebrile however has persistent fluctuating leukocytosis during hospitalization. Possibly r elated to steroids vs infection vs reactive, patient is malnourished, also possibly related to DVT. Decreased prednisone back to 10mg daily on 02/16, continued to tolerate lower home do se. 12.1->13.1->13.0->14.0, no new sign of infection, multiple causes for elevation noted inclu ding infection, reactive, malnutrition, PRBC given, steroids. Reordered 02/19 Blood cultures given worsening leukocytosis -f/u Repeat Blood cultures. Continue bactrim and IV unasyn -continue to monitor daily -Continue prednisone 10mg daily, home dose #Iron deficiency anemia No obvious source of bleeding noted on EGD/Colonoscopy performed in 2018, possible AVMs Continue ferrous sulfate Recommended to transfuse <7.0 hgb, the POA however would like blood transfusions <8.0 1U PRBC given on 02/06 and repeat 1 U PRBC given 02/16 02/18 Hgb 9.5 from 10.2, monitor daily 02/19: Hgb 9.0, will continue to monitor #Elevated ALT/AST, stable Likely 2/2 CHF, will hold on imaging for now and continue to monitor, no sign of pancreatit is, bile duct obstruction, or cholecystitis. 02/18: AST/ALT stable, abdominal pain resolved 02/19: AST/ALT downtrend, likely was 2/2 fluid overload, will continue to trend. No abdomina l pain #Hx of TAVR for #Hx of CAD #CHFpEF exacerbation CHF currently stable with lasix regimen given during hospital stay. Was changed to bumex on 02/12 tolerating well. Continued stable on home regimen of 2L NC oxygen. Reviewed 02/13 ECHO no significant changes noted. BNP increased on 02/17, likely after 1U PRBC given on 02/16. Improved to 301 from 405. -lipitor -bumex 1mg BID -Coreg 6.25mg BID -on baseline 2L NC #FAITH resolved #Hypernatremia resolved #Acute metabolic encephalopathy, stable noted likely at baseline, delirium precautions, lexapro #malnutrition I attest that this clinical assessment using ASPEN criteria 1is accurate for this patient and supports that as a medical diagnosis.A specific nutrition treatment plan will be im [...] depletion Muscle Mass: Severe depletion DVT PPx: eliquis GI PPx: pepcid Diet: general dysphagia mechanical, thin liquids allowed, low sodium 2gm, 1800ml fluid rest rict Dispo: med/tele. Possible in 2-3 days depending on WBC count and if able to be taken care o f at home OMARI Tavera (Son) [phone] (H) business cell phone ([employer]) Chace Higuera MD 02/20/2020 11:[address] [facility] Subjective CC Hgb 9.0 from 9.5. no sign of bleeding overnight. WBC uptrend to 14.0 from 13.1, changed to IV abx in am 02/19. The patient wants to go home today but discussed WBC count uptrending and likely continued infection. Otherwise no acute events overnight, intermittent anxiety but able to understand condition after explanation, but easy to forget conversation and hard of hearing. Called son on 02/19 at 1138am for updates. ROS See above Objective Exam General NAD, AOx2, able to say place but not time Hard of hearing Cardiac RRR, no murmurs rubs or gallups Extremities No edema Lung Mild dry crackles bases bilaterally, on 2L NC with normal respirations Abdominal Soft, NT, ND, NBS Neuro Generalized weakness slowly improving, 5/5 MS all extremities, AOx2 not time Sacral Ulcer Continued Wound care, continued erythema surrounding fibrous white tissue, no sign of ische carson/necrosis. February 10 February 14 Consent for Photo on February 10 and February 14 The patient was advised that digital photos will be taken today of Ángela Crowley.The patient verbally consented to having these photos taken for purposes of documenting his/her condition.The patient understands that the images will be stored in their medical record . See Photographs in the Media tab which is located in Chart Review. The Document type is Clinical Image Stefu/Aruna. Some photographs may also appear in certain notes from this encounter. Echo February 13 Summary Left ventricle is normal in size and function. There is mild concentric hypertrophy ejection fraction is estimated at 65%. 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 No insufficiency is noted. Structurally normal tricuspid valve with mild to moderate insufficiency and peak velocity consistent with RVSP 41-46 mmHg. Left atrium is mildly enlarged. Compared with patient's last echocardiogram, aortic valve gradient is slightly higher. Otherwise no significant changes are noted. Signature Electronically signed by GLENDA STRATTON Serial weights: Filed Weights: 02/09/20 1836 02/10/20 0304 02/11/20 0540 02/13/20 0322 Weight: 51.3 kg (113 lb) 52.7 kg (116 lb 1.6 oz) 49.2 kg (108 lb 6.4 oz) 46.6 kg (102 lb 11 .8 oz) 02/15/20 0600 02/15/20 2118 02/17/20 0257 02/18/20 0434 Weight: 46 kg (101 lb 6.6 oz) 46 kg (101 lb 6.6 oz) 45.3 kg (99 lb 14.4 oz) 42 kg (92 lb 9. 5 oz) 02/18/20 1231 02/19/20 0207 02/20/20 0517 Weight: 42 kg (92 lb 9.5 oz) 43.5 kg (95 lb 14.4 oz) 41.8 kg (92 lb 2.4 oz) Most recent weight: Input and output 2 shifts and 3 shifts: Wt Readings from Last 1 Encounters: 02/20/20 41.8 kg (92 lb 2.4 oz) I/O last 24 Hours: In: 1429 [P.O.:1429] Out: 350 [Urine:350] I/O last 3 completed shifts: In: 1479 [P.O.:1479] Out: 650 [Urine:650] Vitals Ranges: Temp: [36.6 C (97.9 F)-37.2 C (99 F)] 37.1 C (98.7 F) Pulse: [81-106] 84 Resp: [20-24] 20 BP: (115-145)/(56-67) 129/67 Vitals: Temp: 37.1 C (98.7 F) BP: 129/67 Pulse: 84 Resp: 20 SpO2: 95 % SpO2 95 % on nasal cannula at flow rate 2L/min Diet and Supplements Diet Diet general; dysphagia mechanical; thin liquids allowed; sodium restricted 2 gm; 1800 ml fluid; potassium 3 gm K; Effective Now Number of Occurrences: Until Specified Order Comments: RED TRAY for good set up and intermittent supervision. 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 Thin liquids. Straws ok. Order Questions: Type Diet general Texture modifications dysphagia mechanical Fluid consistency modifications thin liquids allowed sodium restictions sodium restricted 2 gm fluid volume restictions 1800 ml fluid renal modifications potassium 3 gm K Nourishments Dietary nutrition supplements Boost; 1 Can Number of Occurrences: Until Specified Order Comments: With meals Order Questions: Supplement Boost Volume: 1 Can Objective Data Allergies: Allergies Allergen Reactions Flagyl [Metronidazole] Nausea And Vomiting and GI Upset Percocet [Oxycodone] Unknown Pregabalin Unknown Lyrica Current Medications: Current Facility-Administered Medications Medication Dose Route Frequency Provider Last Rate Last Dose acetaminophen (TYLENOL) tablet 500 mg 500 mg Oral Q6H PRN Anna Hastings MD 500 mg a t 02/14/20 1648 albuterol 2.5 mg/3 mL nebulizer solution 2.5 mg 2.5 mg Nebulization Q4H PRN Anna powell MD albuterol 2.5 mg/3 mL nebulizer solution 2.5 mg 2.5 mg Nebulization RT Q6H Anna condon MD 2.5 mg at 02/20/20 0910 alteplase (CATHFLO ACTIVASE) injection 2 mg 2 mg Intracatheter PRN Bruce Cochran MD aluminum & magnesium hydroxide-simethicone (MAALOX PLUS REGULAR STRENGTH) 200-200-20 mg /5 mL suspension 30 mL 30 mL Oral Q4H PRN Chace Higuera MD ampicillin-sulbactam (UNASYN) 3 g in sodium chloride 0.9% 100 mL IVPB 3 g Intravenous 2 times per day Chace Higuera MD 200 mL/hr at 02/20/20 0822 3 g at 02/20/20 0822 apixaban (ELIQUIS) tablet 2.5 mg 2.5 mg Oral BID Bruce Cochran MD 2.5 mg at 08 ascorbic acid (VITAMIN C) tablet 1,000 mg 1,000 mg Oral Daily Anna Hastings MD 1,00 0 mg at 02/20/20 08 atorvaSTATin (LIPITOR) tablet 20 mg 20 mg Oral Nightly Anna Hastings MD 20 mg at 1999 brimonidine (ALPHAGAN) 0.2% ophthalmic solution 1 drop 1 drop Both Eyes BID Anna powell MD 1 drop at 02/20/20 0825 budesonide (PULMICORT) nebulizer solution 0.5 mg 0.5 mg Nebulization RT BID Bruce lynne MD 0.5 mg at 02/20/20 09 bumetanide (BUMEX) tablet 1 mg 1 mg Oral BID (8 and 16) Bruce Cochran MD 1 mg at 0 02/20/20 08 calcium carbonate (TUMS) chewable tablet 1,000 mg 1,000 mg Oral BID PRN Anna Hastings MD 1,000 mg at 02/17/20 164 carvedilol (COREG) tablet 6.25 mg 6.25 mg Oral BID WC Anna Hastings MD 6.25 mg at 0 02/20/20 08 cholecalciferol (VITAMIN D-3) tablet 1,000 Units 1,000 Units Oral Daily Anna Hastings MD 1,000 Units at 02/20/20 08 collagenase (SANTYL) ointment Topical BID Keyur Thrasher MD dextrose 50% injection 12.5-25 g 12.5-25 g Intravenous PRN Anna Hastings MD And dextrose 10% (D10W) infusion Intravenous Continuous PRN Anna Hastings MD dicyclomine (BENTYL) capsule 10 mg 10 mg Oral Daily PRN Anna Hastings MD docusate sodium (COLACE) capsule 300 mg 300 mg Oral BID PRN Anna Hastings MD dorzolamide (TRUSOPT) 2% ophthalmic solution 1 drop 1 drop Both Eyes BID Anna Hastings MD 1 drop at 02/20/20 08 escitalopram (LEXAPRO) tablet 15 mg 15 mg Oral Daily Anna Hastings MD 15 mg at 02/03 famotidine (PEPCID) tablet 20 mg 20 mg Oral Nightly Anna Hastings MD 20 mg at 02/18 ferrous sulfate tablet 325 mg 325 mg Oral Daily with breakfast Anna Hastings MD 325 mg at 02/20/20 08 fluticasone (FLONASE) 50 mcg/nasal spray 1 spray 1 spray Nasal Daily PRN Anna Hastings MD HYDROcodone-acetaminophen (NORCO) 5-325 mg per tablet 1-2 tablet 1-2 tablet Oral Q6H P RN Chace Higuera MD 1 tablet at 02/20/20 0327 insulin lispro (humaLOG KWIKPEN) injection (pen) 0-6 Units 0-6 Units Subcutaneous 4x D aily WC and HS Anna Hastings MD 1 Units at 02/19/202006 lactobacillus GG (CULTURELLE) capsule 1 capsule 1 capsule Oral BID Anna Hastings MD 1 capsule at 02/20/20 08 latanoprost (XALATAN) 0.005% ophthalmic solution 1 drop 1 drop Both Eyes Nightly Rebeca Hastings MD 1 drop at 02/19/202000 LORazepam (ATIVAN) tablet 0.5 mg 0.5 mg Oral Q8H PRN Chace Higuera MD melatonin tablet 3 mg 3 mg Oral Nightly PRN Anna Hastings MD nitroglycerin (NITROSTAT) SL tablet 0.4 mg 0.4 mg Sublingual Q5 Min PRN Anna Hastings MD nystatin (MYCOSTATIN) cream Topical BID Chace Higuera MD pantoprazole (PROTONIX) DR tablet 40 mg 40 mg Oral QAM AC Anna Hastings MD 40 mg at 02/20/20 0628 Patient own medication - Brovana 15 mcg/2 mL nebulizer 15 mcg Nebulization RT BID Nguyễn Cochran MD 15 mcg at 02/20/20 09 polyethylene glycol (MIRALAX) powder 17 g 17 g Oral Daily PRN Anna Hastings MD polyvinyl alcohol (LIQUITEARS) 1.4% ophthalmic solution 2 drop 2 drop Both Eyes QAJazz Hastings MD 2 drop at 02/20/20 08 predniSONE (DELTASONE) tablet 10 mg 10 mg Oral Daily Chace Higuera MD 10 mg a t 02/20/20 08 prochlorperazine tablet 10 mg 10 mg Oral Q8H PRN Anna Hastings MD senna (SENOKOT) tablet 8.6 mg 8.6 mg Oral BID PRN Anna Hastings MD 8.6 mg at 2049 sodium chloride (OCEAN) 0.65% nasal spray 2 spray 2 spray Each Nare Q1H PRN Anna powell MD sulfamethoxazole-trimethoprim (BACTRIM DS) 800-160 mg per tablet 1 tablet 1 tablet Ora l BID Bruce Cochran MD 1 tablet at 02/20/20 08 traZODone (DESYREL) tablet 50 mg 50 mg Oral Nightly PRN Chace Higuera MD Current Infusions: dextrose 10% Hematology and anemia Recent Labs Lab 02/20/20 0502/19/20 0535 02/18/20 06 WBC 14.0* 13.0* 13.1* HGB 9.0* 9.5* 10.2* HCT 28.7* 30.5* 32.0* PLT 190 217 210 No results for input(s): PROTIME, INR, PTT in the last 168 hours. No results for input(s): IRON, TIBC, PCTSAT, FERRITIN, TSH, [id number], FOLATE in the last 168 hours. Inflammatory markers No results for input(s): LACTATE, PROCALCITONI, CRP, ESR in the last 168 hours. Chemistry Recent Labs Lab 02/20/20 0502/19/20 0535 02/18/20 06 GLU 79 78 83 NA 140 140 138 K 4.7 4.7 4.4 CL 104 102 99 CO2 34* 35* 36* ANIONGAP 2* 3 3 BUN 31* 30* 26* CREA 0.93 0.93 0.78 GFRNONAA 57* 57* >60 CALCIUM 8.6* 8.7 8.5* ALBUMIN 2.8* 2.9* 3.1* TOTALPROTEIN 4.9* 5.0* 5.4* BILITOT 0.3 0.4 0.5 ALKPHOS 77 82 92 ALT 53* 61* 64* AST 34 38* 39* Recent Labs Lab 02/20/20 0547 02/19/20 0535 02/18/20 0623 MG 2.3 2.2 2.1 Recent Labs Lab 02/18/20 0623 LIPASE 44 No results for input(s): TRIG, CHOL, HDL, LDL in the last 168 hours. No results for input(s): AMMONIA in the last 168 hours. Cardiology & Digoxin Recent Labs Lab 02/20/20 0547 02/19/20 0535 02/18/20 0623 02/17/20 0544 02/16/20 0506 BNP 301* 405* 1,058* 526* 609* ABG No results for input(s): PHART, PO2ART, RBT6RGN, OKN2BXS, BEART, M2KDASEF in the last 168 h ours. No results for input(s): SPECSOURCE, PHPOCB, PCO2, PO2, HCO3, TCO2, BEART, [id number] in the last 168 hours. Drug of overdose and abuse No results for input(s): ALCOHOL, ACTMN, SALICYLATE in the last 168 hours. No results for input(s): AMPHEQUAL, BARBITURATE, BENZSCR, CANNIBSCR, AMPHETAMINE, METHADSCR , OPIATESCR in the last 168 hours. Urinalysis No results for input(s): GLUCOSEU, WBCUA, RBCUA, SQUAMEPIUA, BACTERIAUA, CULTIF in the last 168 hours. Point of care glucose Recent Labs Lab 02/20/20 0627 02/19/20 2006 02/19/20 1619 02/19/20 1120 02/19/20 0611 02/18/20 2056 POCGLU 86 228* 139* 216* 91 143* Micro results more choices using dot micro (below is last 7 days) Microbiology Results (Last 7) Date with Culture/Sensitivity) Procedure Component Value Units Date/Time Culture, Blood [[id number]] Collected: 02/20/20 0819 Order Status: Sent Lab Status: In process Updated: 02/20/20 0843 Specimen: Blood Culture, Blood [[id number]] Collected: 02/20/20 0628 Order Status: Sent Lab Status: In process Updated: 02/20/20 0632 Specimen: Blood Culture, Wound, Smear, w/Anaerobe [[id number]] Collected: 02/16/20 1337 Order Status: Sent Lab Status: In process Updated: 02/19/20 1231 Specimen: Tissue from Vertebrae, Sacral Narrative: The following orders were created for panel order Culture, Wound, Smear, w/Anaerobe. Procedure Abnormality Status --------- ------ Culture, Wound, Smear[[id number]] Final result Culture, Anaerobic[[id number]] Normal Preliminary result Please view results for these tests on the individual orders. Culture, Wound, Smear [[id number]] (Susceptibility) Collected: 02/16/201336 Order Status: Completed Lab Status: Final result Updated: 02/19/20 1231 Specimen: Tissue from Vertebrae, Sacral Culture 4+ Enterococcus faecalis Comment: Combination therapy of ampicillin, penicillin, or vancomycin (for susceptible st rains), plus an aminoglycoside, is usually indicated for serious enterococcal infections, hoyos ch as endocarditis, unless high-level resistance to both gentamicin and streptomycin is documented; such combinations are predicted to result in synergistic killin g of the enterococcus. 4+ Timbo albicans Gram Stain Result No white blood cells (PMNs) seen 2+ Yeast with pseudohyphae Susceptibility Enterococcus faecalis (1) Antibiotic Interpretation Microscan Method Status Ampicillin Sensitive <=2 ug/mL Not Specified Final Penicillin G Sensitive 8 ug/mL Not Specified Final Vancomycin Sensitive 1 ug/mL Not Specified Final Culture, Anaerobic [[id number]] (Normal) Collected: 02/16/201336 Order Status: Completed Lab Status: Preliminary result Updated: 02/19/20 1414 Specimen: Tissue from Vertebrae, Sacral Culture No anaerobes isolated to date. Radiology results (more choices using dot risresults) [...] this chart may have been created with [employer] recognition software. Occasi onal wrong-word or sound-alike substitutions may have occurred due to the inherent owen itations of voice recognition software. Please read the chart carefully and recognize, using context, where these substitutions have occurred Markus Wilhelm PharmD - 02/20/2020 6:27 AM PDT . RENAL DOSE ADJUSTMENT PER PHARMACY PROTOCOL: Subjective/Objective: Ángela Crowley is a 89 y.o. year old female admitted on 02/09/2020 6:29 PM and is recei ving BACTRIM and AMPICILLIN/SULBACTAM BP 129/67 | Pulse 84 | Temp 37.1 C (98.7 F) (Oral) | Resp 20 | Ht 1.676 m (5' 5.98" ) | Wt 41.8 kg (92 lb 2.4 oz) | SpO2 95% | BMI 14.88 kg/m Intake/Output Summary (Last 24 hours) at 02/20/2020 1431 Last data filed at 02/20/2020 1130 Gross per 24 hour Intake 1252 ml Output 225 ml Net 1027 ml Recent Labs Lab 02/20/20 0547 02/19/20 0535 02/18/20 0623 CREA 0.93 0.93 0.78 CrCl cannot be calculated (Unknown ideal weight.). BACTRIM Date Day of therapy Creatinine CrCl (mL/min) Dose-current Dose-new 02/20/20 6 0.93 27 1 DS po BID 1 DS daily UNASYN Date Day of therapy Creatinine CrCl (mL/min) Dose-current Dose-new 02/20/20 1 0.93 27 3 g q6hr 3 g q12hr Assessment/Plan: 1. For creatinine clearance 10-30 mL/min, decrease dose of BACTRIM and AMPICILLIN/SULBACTAM as above. 2. Pharmacy will continue to follow and adjust dose as appropriate to clinical condition an d creatinine clearance changes RENAL DOSE ADJUSTMENT PROTOCOL Electronically signed by: Markus Ott PharmD 02/20/2020 2:32 PM arina Wise RN - 02/19/2020 5:45 PM PDTAssumed care at 1600, medications administered as scheduled. Repor ting back pain 1 Hydrocodone administered. Up to bsc. Up in chair for dinner. Ambulating 1 person CGA and FWW. Purposeful hourly rounding. erry, Chace Krueger MD - 02/19/2020 1:19 PM PDT [place] HOSPITALIST PROGRESS NOTE Patient: Ángela Crowley : 1930: Age: 89 y.o. MedRec: [id number] PCP: Candido Link MD Admission date: 02/09/2020 Hospital day # : 9 Physician author: Chace Higuera MD Today: 02/19/2020 Assessment and Hospital Course Active Hospital Problems Diagnosis Arm DVT (deep venous thromboembolism), acute, left Iron deficiency anemia due to chronic blood loss Resolved Hospital Problems No resolved problems to display. 89F PMHx COPD on 2-3L [place] Home O2, TAVR, CHFpEF, presented from home with acute metabolic en cephalopathy 2/2 medications vs infectious process. Treating cellulitis and infected sacral decubitus ulcer likely 2/2 MRSA. Hospital course complicated by worsening left arm swelling, first US of LUE on 02/06 negative for DVT, repeat 02/08 revealed extensive DVT and started on e liquis. Plan #Acute left arm DVT found on 02/08 Continue eliquis 2.5mg BID, swelling in left arm has resolved. Noted to be able to have sacral ulcer debridement on apixaban if indicated, debridement can be approached in outpatient setting with surgery outpatient. 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 Clindamycin on since 02/12. Given resistance on Wound cultu re to clindamycin changed to bactrim only. Dr. Thrasher consulted for general surgery, possible debridement in around 1 week if patient continued inpatient, otherwise per discussion with Dr. Thrasher would recommend continued woun d care with santyl and continued antibiotics to follow up outpatient with general surgery fo r outpatient debridement in 1-2 weeks. Can attempt to approach debridement if patient in hos pital after the weekend if applicable -02/15 Wound Culture Enterococcus faecalis and likely timbo. Susceptible to augmentin -continue santyl and nystatin -Continue augmentin -continue bactrim -likely will require 10 more days, prolonged course of antibiotics. #Leukocytosis, stable Afebrile however has persistent fluctuating leukocytosis during hospitalization. Possibly r elated to steroids vs infection vs reactive, patient is malnourished, also possibly related to DVT. Decreased prednisone back to 10mg daily on 02/16, continued to tolerate lower home do se. 12.1->13.1->13.0, no new sign of infection, multiple causes for elevation noted including i nfection, reactive, malnutrition, PRBC given, steroids. -continue to monitor daily -decreased steroid back to prednisone 10mg daily on 02/16 #Iron deficiency anemia No obvious source of bleeding noted on EGD/Colonoscopy performed in 2018, possible AVMs Continue ferrous sulfate Recommended to transfuse <7.0 hgb, the POA however would like blood transfusions <8.0 1U PRBC given on 02/06 and repeat 1 U PRBC given 02/16 02/18 Hgb 9.5 from 10.2, monitor daily #Elevated ALT/AST, stable Likely 2/2 CHF, will hold on imaging for now and continue to monitor, no sign of pancreatit is, bile duct obstruction, or cholecystitis 02/18: AST/ALT stable, abdominal pain resolved #Hx of TAVR for #Hx of CAD #CHFpEF exacerbation CHF currently stable with lasix regimen given during hospital stay. Was changed to bumex on 02/12 tolerating well. Continued stable on home regimen of 2L NC oxygen. Reviewed 02/13 ECHO no significant changes noted. BNP increased on 02/17, likely after 1U PRBC given on 02/16. 02/18 BNP 405 from 1058 improved. -lipitor -bumex 1mg BID -Coreg 6.25mg BID -on baseline 2L NC #FIATH resolved #Hypernatremia resolved #Acute metabolic encephalopathy, improved noted likely at baseline, delirium precautions, lexapro #malnutrition I attest that this clinical assessment using ASPEN criteria 1is accurate for this patient and supports that as a medical diagnosis.A specific nutrition treatment plan will be im [...] depletion Muscle Mass: Severe depletion DVT PPx: eliquis GI PPx: pepcid Diet: general dysphagia mechanical, thin liquids allowed, low sodium 2gm, 1800ml fluid rest rict Dispo: med/tele. Likely 2-3 more days OMARI Tavera (Son) [phone] (H) business cell phone ([employer]) Chace Higuera MD 02/19/2020 1:[address] [facility] Subjective CC Hgb 9.5 from 10.2. WBC 13.0 from 13.1. Abdominal pain now resolved. Has back pain continued . Makes needs known but still has anxiety intermittently. No acute events overnight. Called Son at 230pm 02/18 Updated on Wound cultures and plan for wound care outpatient. Will plan for home health wit h wound care when patient ready for discharge. ROS See above Objective Exam General NAD, AOx2, able to say place but not time Hard of hearing Cardiac RRR, no murmurs rubs or gallups Extremities No edema Sacral decub ulcer noted Lung Mild dry crackles bases bilaterally, on 2L NC with normal respirations Abdominal Soft, NT, ND, NBS Neuro Generalized weakness slowly improving, 5/5 MS all extremities, AOx1 Sacral Ulcer Similar appearance on 02/18 from February 14 below. Continued wound care santyl/nystatin February 10 February 14 Consent for Photo on February 10 and February 14 The patient was advised that digital photos will be taken today of Ángela Crowley.The patient verbally consented to having these photos taken for purposes of documenting his/her condition.The patient understands that the images will be stored in their medical record . See Photographs in the Media tab which is located in Chart Review. The Document type is Clinical Image Vincenzoku/Aruna. Some photographs may also appear in certain notes from this encounter. Echo February 13 Summary Left ventricle is normal in size and function. There is mild concentric hypertrophy ejection fraction is estimated at 65%. 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 No insufficiency is noted. Structurally normal tricuspid valve with mild to moderate insufficiency and peak velocity consistent with RVSP 41-46 mmHg. Left atrium is mildly enlarged. Compared with patient's last echocardiogram, aortic valve gradient is slightly higher. Otherwise no significant changes are noted. Signature Electronically signed by GLENDA STRATTON Serial weights: Filed Weights: 02/09/20 1836 02/10/20 0304 02/11/20 0540 02/13/20 0322 Weight: 51.3 kg (113 lb) 52.7 kg (116 lb 1.6 oz) 49.2 kg (108 lb 6.4 oz) 46.6 kg (102 lb 11 .8 oz) 02/15/20 0600 02/15/20 2118 02/17/20 0257 02/18/20 0434 Weight: 46 kg (101 lb 6.6 oz) 46 kg (101 lb 6.6 oz) 45.3 kg (99 lb 14.4 oz) 42 kg (92 lb 9. 5 oz) 02/18/20 1231 02/19/20 0207 Weight: 42 kg (92 lb 9.5 oz) 43.5 kg (95 lb 14.4 oz) Most recent weight: Input and output 2 shifts and 3 shifts: Wt Readings from Last 1 Encounters: 02/19/20 43.5 kg (95 lb 14.4 oz) I/O last 24 Hours: In: 497 [P.O.:497] Out: 450 [Urine:450] I/O last 3 completed shifts: In: 597 [P.O.:597] Out: 950 [Urine:950] Vitals Ranges: Temp: [35.6 C (96 F)-37.3 C (99.1 F)] 37.2 C (99 F) Pulse: [75-114] 101 Resp: [16-20] 18 BP: (106-162)/(52-79) 106/53 Vitals: Temp: 37.2 C (99 F) BP: 106/53 Pulse: 101 Resp: 18 SpO2: 94 % SpO2 94 % on nasal cannula at flow rate 2L/min Diet and Supplements Diet Diet general; dysphagia mechanical; thin liquids allowed; sodium restricted 2 gm; 1800 ml fluid; potassium 3 gm K; Effective Now Number of Occurrences: Until Specified Order Comments: RED TRAY for good set up and intermittent supervision. 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 Thin liquids. Straws ok. Order Questions: Type Diet general Texture modifications dysphagia mechanical Fluid consistency modifications thin liquids allowed sodium restictions sodium restricted 2 gm fluid volume restictions 1800 ml fluid renal modifications potassium 3 gm K Nourishments Dietary nutrition supplements Boost; 1 Can Number of Occurrences: Until Specified Order Comments: With meals Order Questions: Supplement Boost Volume: 1 Can Objective Data Allergies: Allergies Allergen Reactions Flagyl [Metronidazole] Nausea And Vomiting and GI Upset Percocet [Oxycodone] Unknown Pregabalin Unknown Lyrica Current Medications: Current Facility-Administered Medications Medication Dose Route Frequency Provider Last Rate Last Dose acetaminophen (TYLENOL) tablet 500 mg 500 mg Oral Q6H PRN Anna Hastings MD 500 mg a t 02/14/20 1648 albuterol 2.5 mg/3 mL nebulizer solution 2.5 mg 2.5 mg Nebulization Q4H PRN Anna powell MD albuterol 2.5 mg/3 mL nebulizer solution 2.5 mg 2.5 mg Nebulization RT Q6H Anna condon MD 2.5 mg at 02/19/20 0824 alteplase (CATHFLO ACTIVASE) injection 2 mg 2 mg Intracatheter PRN Bruce Cochran MD aluminum & magnesium hydroxide-simethicone (MAALOX PLUS REGULAR STRENGTH) 200-200-20 mg /5 mL suspension 30 mL 30 mL Oral Q4H PRN Chace Higuera MD apixaban (ELIQUIS) tablet 2.5 mg 2.5 mg Oral BID Bruce Cochran MD 2.5 mg at 0854 ascorbic acid (VITAMIN C) tablet 1,000 mg 1,000 mg Oral Daily Anna Hastings MD 1,00 0 mg at 02/19/20 0853 atorvaSTATin (LIPITOR) tablet 20 mg 20 mg Oral Nightly Anna Hastings MD 20 mg at 2049 brimonidine (ALPHAGAN) 0.2% ophthalmic solution 1 drop 1 drop Both Eyes BID Anna powell MD 1 drop at 02/19/20 0855 budesonide (PULMICORT) nebulizer solution 0.5 mg 0.5 mg Nebulization RT BID Bruce lynne MD 0.5 mg at 02/19/20 0824 bumetanide (BUMEX) tablet 1 mg 1 mg Oral BID (8 and 16) Bruce Cochran MD 1 mg at 0 02/19/20 0853 calcium carbonate (TUMS) chewable tablet 1,000 mg 1,000 mg Oral BID PRN Anna Hastings MD 1,000 mg at 02/17/20 164 carvedilol (COREG) tablet 6.25 mg 6.25 mg Oral BID WC Anna Hastings MD 6.25 mg at 0 02/19/20 0854 cholecalciferol (VITAMIN D-3) tablet 1,000 Units 1,000 Units Oral Daily Anna Hastings MD 1,000 Units at 02/19/20 0854 collagenase (SANTYL) ointment Topical BID Keyur Thrasher MD dextrose 50% injection 12.5-25 g 12.5-25 g Intravenous PRN Anna Hastings MD And dextrose 10% (D10W) infusion Intravenous Continuous PRN Anna Hastings MD dicyclomine (BENTYL) capsule 10 mg 10 mg Oral Daily PRN Anna Hastings MD docusate sodium (COLACE) capsule 300 mg 300 mg Oral BID PRN Anna Hastings MD dorzolamide (TRUSOPT) 2% ophthalmic solution 1 drop 1 drop Both Eyes BID Anna Hastings MD 1 drop at 02/19/20 0854 escitalopram (LEXAPRO) tablet 15 mg 15 mg Oral Daily Anna Hastings MD 15 mg at 02/03 03/25 0854 famotidine (PEPCID) tablet 20 mg 20 mg Oral Nightly Anna Hastings MD 20 mg at 02/17 ferrous sulfate tablet 325 mg 325 mg Oral Daily with breakfast Anna Hastings MD 325 mg at 02/19/20 0854 fluticasone (FLONASE) 50 mcg/nasal spray 1 spray 1 spray Nasal Daily PRN Anna Hastings MD HYDROcodone-acetaminophen (NORCO) 5-325 mg per tablet 1-2 tablet 1-2 tablet Oral Q6H P RN Chace Higuera MD 1 tablet at 02/19/20 0904 insulin lispro (humaLOG KWIKPEN) injection (pen) 0-6 Units 0-6 Units Subcutaneous 4x D aily WC and HS Anna Hastings MD 2 Units at 02/19/20 1226 lactobacillus GG (CULTURELLE) capsule 1 capsule 1 capsule Oral BID Anna Hastings MD 1 capsule at 02/19/20 0853 latanoprost (XALATAN) 0.005% ophthalmic solution 1 drop 1 drop Both Eyes Nightly Rebeca Hastings MD 1 drop at 02/18/20 205 LORazepam (ATIVAN) tablet 0.5 mg 0.5 mg Oral Q8H PRN Chace Higuera MD melatonin tablet 3 mg 3 mg Oral Nightly PRN Anna Hastings MD nitroglycerin (NITROSTAT) SL tablet 0.4 mg 0.4 mg Sublingual Q5 Min PRN Anna Hastings MD nystatin (MYCOSTATIN) cream Topical BID Chace Higuera MD pantoprazole (PROTONIX) DR tablet 40 mg 40 mg Oral QAM AC Anna Hastings MD 40 mg at 02/19/20 0607 Patient own medication - Brovana 15 mcg/2 mL nebulizer 15 mcg Nebulization RT BID Nguyễn Cochran MD 15 mcg at 02/19/20 0824 polyethylene glycol (MIRALAX) powder 17 g 17 g Oral Daily PRN Anna Hastings MD polyvinyl alcohol (LIQUITEARS) 1.4% ophthalmic solution 2 drop 2 drop Both Eyes QAJazz Hastings MD 2 drop at 02/19/20 0855 predniSONE (DELTASONE) tablet 10 mg 10 mg Oral Daily Chace Higuera MD 10 mg a t 02/19/20 0853 prochlorperazine tablet 10 mg 10 mg Oral Q8H PRN Anna Hastings MD senna (SENOKOT) tablet 8.6 mg 8.6 mg Oral BID PRN Anna Hastings MD 8.6 mg at 205 sodium chloride (OCEAN) 0.65% nasal spray 2 spray 2 spray Each Nare Q1H PRN Anna powell MD sulfamethoxazole-trimethoprim (BACTRIM DS) 800-160 mg per tablet 1 tablet 1 tablet Ora l BID Bruce Cochran MD 1 tablet at 02/19/20 0853 traZODone (DESYREL) tablet 50 mg 50 mg Oral Nightly PRN Chace Higuera MD Current Infusions: dextrose 10% Hematology and anemia Recent Labs Lab 02/19/20 0502/18/2062202/17/20 1817 02/17/20 0544 WBC 13.0* 13.1* -- 12.1* HGB 9.5* 10.2* 10.3* 7.7* HCT 30.5* 32.0* 31.8* 24.9* PLT 217 210 -- 199 No results for input(s): PROTIME, INR, PTT in the last 168 hours. No results for input(s): IRON, TIBC, PCTSAT, FERRITIN, TSH, [id number], FOLATE in the last 168 hours. Inflammatory markers No results for input(s): LACTATE, PROCALCITONI, CRP, ESR in the last 168 hours. Chemistry Recent Labs Lab 02/19/20 0502/18/2062202/17/20 0544 GLU 78 83 83 NA 140 138 137 K 4.7 4.4 4.8 CL 102 99 101 CO2 35* 36* 32* ANIONGAP 3 3 4 BUN 30* 26* 25* CREA 0.93 0.78 0.80 GFRNONAA 57* >60 >60 CALCIUM 8.7 8.5* 8.4* ALBUMIN 2.9* 3.1* -- TOTALPROTEIN 5.0* 5.4* -- BILITOT 0.4 0.5 -- ALKPHOS 82 92 -- ALT 61* 64* -- AST 38* 39* -- Recent Labs Lab 02/19/2053402/18/2062202/17/20 0544 MG 2.2 2.1 1.9 Recent Labs Lab 02/18/20 0623 LIPASE 44 No results for input(s): TRIG, CHOL, HDL, LDL in the last 168 hours. No results for input(s): AMMONIA in the last 168 hours. Cardiology & Digoxin Recent Labs Lab 02/19/20 0535 02/18/20 0623 02/17/20 0544 02/16/20 0506 02/15/20 0530 BNP 405* 1,058* 526* 609* 525* ABG No results for input(s): PHART, PO2ART, XQE5MYI, OYZ5GIP, BEART, W5KHDIHY in the last 168 h ours. No results for input(s): SPECSOURCE, PHPOCB, PCO2, PO2, HCO3, TCO2, BEART, RIWV9NOM in the last 168 hours. Drug of overdose and abuse No results for input(s): ALCOHOL, ACTMN, SALICYLATE in the last 168 hours. No results for input(s): AMPHEQUAL, BARBITURATE, BENZSCR, CANNIBSCR, AMPHETAMINE, METHADSCR , OPIATESCR in the last 168 hours. Urinalysis No results for input(s): GLUCOSEU, WBCUA, RBCUA, SQUAMEPIUA, BACTERIAUA, CULTIF in the last 168 hours. Point of care glucose Recent Labs Lab 02/19/20 1120 02/19/20 0611 02/18/20 2056 02/18/20 1705 02/18/20 1154 02/18/20 0657 POCGLU 216* 91 143* 153* 108 103 Micro results more choices using dot micro (below is last 7 days) Microbiology Results (Last 7) Date with Culture/Sensitivity) Procedure Component Value Units Date/Time Culture, Wound, Smear, w/Anaerobe [[id number]] Collected: 02/16/201336 Order Status: Sent Lab Status: In process Updated: 02/19/20 1231 Specimen: Tissue from Vertebrae, Sacral Narrative: The following orders were created for panel order Culture, Wound, Smear, w/Anaerobe. Procedure Abnormality Status --------- ------ Culture, Wound, Smear[[id number]] Final result Culture, Anaerobic[[id number]] In process Please view results for these tests on the individual orders. Culture, Wound, Smear [[id number]] (Susceptibility) Collected: 02/16/201336 Order Status: Completed Lab Status: Final result Updated: 02/19/20 1231 Specimen: Tissue from Vertebrae, Sacral Culture 4+ Enterococcus faecalis Comment: Combination therapy of ampicillin, penicillin, or vancomycin (for susceptible st rains), plus an aminoglycoside, is usually indicated for serious enterococcal infections, hoyos ch as endocarditis, unless high-level resistance to both gentamicin and streptomycin is documented; such combinations are predicted to result in synergistic killin g of the enterococcus. 4+ Timbo albicans Gram Stain Result No white blood cells (PMNs) seen 2+ Yeast with pseudohyphae Susceptibility Enterococcus faecalis (1) Antibiotic Interpretation Microscan Method Status Ampicillin Sensitive <=2 ug/mL Not Specified Final Penicillin G Sensitive 8 ug/mL Not Specified Final Vancomycin Sensitive 1 ug/mL Not Specified Final Culture, Anaerobic [[id number]] Collected: 02/16/20 1337 Order Status: Resulted Lab Status: In process Updated: 02/16/20 1341 Specimen: Tissue from Vertebrae, Sacral Coronavirus (COVID-19) NAAT [[id number]] (Normal) Collected: 02/12/20 1615 Order Status: Completed Lab Status: Final result Updated: 02/13/20 1124 Specimen: Tissue from Nasopharynx SARS coronavirus 2 NAAT Not Detected Narrative: [facility] instructions for COVID-19 tracking [[id number]] Collected: 02/12/20 1615 Order Status: Completed Lab Status: Final result Updated: 02/13/20 1124 Specimen: Tissue from Nasopharynx [facility] COVID STAT instruction -- Radiology results (more choices using dot risresults) Xr Chest Ap Portable Result Date: 02/17/2020 SINGLE AP CHEST 02/17/2020 1:35 PM CLINICAL HISTORY: shortness of breath COMPARISON: Radiog raphs February 13 and more remote imaging FINDINGS: Aortic tortuosity is again evident. An aorti c valve prosthesis is again apparent. The cardiomediastinal silhouette is otherwise unremar kable. The pulmonary vasculature is mildly prominent. A tiny nodular density in the right m id lung corresponds with one of numerous clustered nodules described on previous CT from February 08. The lungs again appear somewhat hyperinflated but otherwise clear without pneumothorax or visible pleural effusion. Osteopenia is suggested. There is multilevel spondylosis. 1. MILD PROMINENCE OF THE PULMONARY VASCULATURE AND PULMONARY HYPERINFLATION. Dictated an d Signed by: Sivakumar Ramon MD Electronically signed: 02/17/2020 1:56 PM Reference. This is NOT part of [...] this chart may have been created with [employer] voice recognition software. Occasi onal wrong-word or sound-alike substitutions may have occurred due to the inherent owen itations of voice recognition software. Please read the chart carefully and recognize, using context, where these substitutions have occurred eynoYoly morton RN - 02/18/2020 5:58 PM [id number] Called Arcadio Argueta at [phone], introduced mys elf and asked if I could call back and discuss his mother's care at 3pm with the ED Director . I let him know we had a care conference for his mothers plan of care and wanted to make denis e he has enough resources and the right equipment for when he takes her home. He discussed his mothers care and about the "clean culture" he had discussed with specialis ts on the [facility] he is friends with (states results are pending). He said he has a air chair pad and egg crate mattress. States his mom sleeps on her right side so she is not on h er coccyx ulcer. States he goes through helping hands for caregiving, I discussed respite c are and asked if they can provide that, he believes so. He has some ehlp throuh his [facility]. Complained about home health having an appointment and not showing up, I let him know I can address this. 1500 Called Arcadio Cotto with [facility] Dover, ED Director and Security [employer]. Let him know we understand he has a lot on his plate and we want to make sure he has the resources he needs to take care of his mother. I let him know we had a care conference and are concer rick about him having enough help due to his mothers care needs. We will have FUNMILAYO Boss thr [facility] who can work with Dr. Millan and provide him support and resources f or the needs of his mother's care. Discussed PT coming in to evaluate for other needs since she has declined. He discussed an issue he had with a therapist stating Johnna told me I could just turn her oxygen off. He has addressed this with Home Health and Medicare. 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 Let h im express feelings of stay at [facility] and other concerns. He states "I know my m om can be a pill". I let him know we want to go over a behavior expectations document, I will read to him and would like him to sign it on Friday when he said he will be able to come in. Asked if he w ould like it e-mailed he said yes to [email or web address] I sent this via #secure# e-mail and g ave him my phone number if he has any questions. He states he will have to send this to his Sleep Scientist to see if he can sign and does not know how long that will take. I let him know h e does not have to sign the document and it will be in the record. erry, Chace hayes MD - 02/18/2020 11:02 AM PDT [place], [place] HOSPITALIST PROGRESS NOTE Patient: Ángela Crowley : 1930: Age: 89 y.o. MedRec: [id number] PCP: Candido Link MD Admission date: 02/09/2020 Hospital day # : 8 Physician author: Chace Higuera MD Today: 02/18/2020 Assessment and Hospital Course Active Hospital Problems Diagnosis Arm DVT (deep venous thromboembolism), acute, left Iron deficiency anemia due to chronic blood loss Resolved Hospital Problems No resolved problems to display. 89F PMHx COPD on 2-3L NC Home O2, TAVR, CHFpEF, presented from home with acute metabolic en cephalopathy 2/2 medications vs infectious process. Treating cellulitis and infected sacral decubitus ulcer likely 2/2 MRSA. Hospital course complicated by worsening left arm swelling, first US of LUE on 02/06 negative for DVT, repeat 02/08 revealed extensive DVT and started on e liquis. Plan #Acute left arm DVT found on 02/08 Continue eliquis 2.5mg BID, swelling in left arm has resolved. Noted to be able to have sacral ulcer debridement on apixaban if indicated, debridement can be approached in outpatient setting with surgery outpatient. 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 Clindamycin on since 02/12. Given resistance on Wound cultu re to clindamycin changed to bactrim only. Dr. Thrasher consulted for general surgery, possible debridement in around 1 week if patient continued inpatient, otherwise per discussion with Dr. Thrasher would recommend continued woun d care with santyl and continued antibiotics to follow up outpatient with general surgery fo r outpatient debridement in 1-2 weeks. Can attempt to approach debridement if patient in hos pital after the weekend -f/u repeat 02/15 Wound culture: note that wound cultures hard to interpret due to fecal con tamination, MRSA grew on first wound culture that can help guide our antibiotic choice for n ow. Showing clinical improvement on bactrim at this time, will continue bactrim. -prelim for 02/15 wound culture 2+ timbo and enterococcus: addition of nystatin cream to s acral ulcer on 02/15. Enterococcus can be contaminant from stool following up susceptibilitie s. -continue bactrim #Leukocytosis Afebrile however has persistent fluctuating leukocytosis during hospitalization. Possibly r elated to steroids vs infection vs reactive, patient is malnourished, also possibly related to DVT. Is currently on stress dose of steroid 10mg BID decreased back to 10mg daily on 02/16 12.1->13.1, no new sign of infection, multiple causes for elevation noted including infecti on, reactive, malnutrition, PRBC given, steroids. -continue to monitor daily -decreased steroid back to prednisone 10mg daily on 02/16 #Iron deficiency anemia No obvious source of bleeding noted on EGD/Colonoscopy performed in 2018, possible AVMs Continue ferrous sulfate Recommended to transfuse <7.0 hgb, the POA however would like blood transfusions <8.0 1U PRBC given on 02/06 and repeat 1 U PRBC given 02/16 Trend Hgb daily with CBC #Elevated ALT/AST Likely 2/2 CHF, will hold on imaging for now and continue to monitor, no sign of pancreatit is, bile duct obstruction, or cholecystitis #Hx of TAVR for #Hx of CAD #CHFpEF exacerbation CHF currently stable with lasix regimen given during hospital stay. Was changed to bumex on 02/12 tolerating well. Continued stable on home regimen of 2L NC oxygen. Reviewed 02/13 ECHO no significant changes noted. BNP increased on 02/17, likely after 1U PRBC given on 02/16. Continued bumex 1mg BID, tolerat ing 2L NC continued -lipitor -bumex 1mg BID -Coreg 6.25mg BID #FAITH resolved #Hypernatremia resolved #Acute metabolic encephalopathy, improved noted likely at baseline, delirium precautions, lexapro #malnutrition I attest that this clinical assessment using ASPEN criteria 1is accurate for this patient and supports that as a medical diagnosis.A specific nutrition treatment plan will be im [...] depletion Muscle Mass: Severe depletion DVT PPx: eliquis GI PPx: pepcid Diet: general dysphagia mechanical, thin liquids allowed, low sodium 2gm, 1800ml fluid rest rict Dispo: med/tele. Likely 2-3 more days POA Yadiel Tavera (Son) [phone] (H) business cell phone ([employer]) Chace Higuera MD 02/18/2020 11:[address] [facility] Subjective CC 1U PRBC given on 02/16 with improvement in Hgb levels to 10.2 in am Complains of midepigastric pain, Lipase normal. AST, ALT slight elevation from prior evalua tion. Alk phos normal, doubt bile duct obstruction. AST ALT can be increased from fluid over load, BNP increased 1058 from 526 likely 2/2 PRBC given on 02/16, continued on bumex. Tolerat ing diet and to make her needs known. Continued lower back pain, continued 2hour shifting an d dressing changes with application of nystatin and santyl. ROS See above Objective Exam General NAD, AOx1, not entirely to place or time but improved mentation Cardiac RRR, no murmurs rubs or gallups Extremities No edema Sacral decub ulcer noted Lung Mild dry crackles bases bilaterally, on 2L NC without labored breathing Abdominal Soft, NT, ND, NBS Neuro Generalized weakness slowly improving, / MS all extremities, AOx1 February 10 February 14 Consent for Photo on February 10 and February 14 The patient was advised that digital photos will be taken today of Ángela Crowley.The patient verbally consented to having these photos taken for purposes of documenting his/her condition.The patient understands that the images will be stored in their medical record . See Photographs in the Media tab which is located in Chart Review. The Document type is Clinical Image [employer]Aruna. Some photographs may also appear in certain notes from this encounter. Echo February 13 Summary Left ventricle is normal in size and function. There is mild concentric hypertrophy ejection fraction is estimated at 65%. 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 No insufficiency is noted. Structurally normal tricuspid valve with mild to moderate insufficiency and peak velocity consistent with RVSP 41-46 mmHg. Left atrium is mildly enlarged. Compared with patient's last echocardiogram, aortic valve gradient is slightly higher. Otherwise no significant changes are noted. Signature Electronically signed by GLENDA STRATTON Serial weights: Filed Weights: 02/09/20 1836 02/10/20 0304 02/11/20 0540 02/13/20 0322 Weight: 51.3 kg (113 lb) 52.7 kg (116 lb 1.6 oz) 49.2 kg (108 lb 6.4 oz) 46.6 kg (102 lb 11 .8 oz) 02/15/20 0600 02/15/20 2118 02/17/20 0257 02/18/20 0434 Weight: 46 kg (101 lb 6.6 oz) 46 kg (101 lb 6.6 oz) 45.3 kg (99 lb 14.4 oz) 42 kg (92 lb 9. 5 oz) Most recent weight: Input and output 2 shifts and 3 shifts: Wt Readings from Last 1 Encounters: 02/18/20 42 kg (92 lb 9.5 oz) I/O last 24 Hours: In: 1349 [P.O.:1057; Blood:292] Out: 750 [Urine:750] I/O last 3 completed shifts: In: 1469 [P.O.:1177; Blood:292] Out: 1390 [Urine:1390] Vitals Ranges: Temp: [35.8 C (96.4 F)-37.1 C (98.8 F)] 35.8 C (96.4 F) Pulse: [92-111] 111 Resp: [18-28] 18 BP: (102-172)/(56-82) 102/60 Vitals: Temp: 35.8 C (96.4 F) BP: 102/60 Pulse: 111 Resp: 18 SpO2: 97 % SpO2 97 % on nasal cannula at flow rate 2L/min Diet and Supplements Diet Diet general; dysphagia mechanical; thin liquids allowed; sodium restricted 2 gm; 1800 ml fluid; potassium 3 gm K; Effective Now Number of Occurrences: Until Specified Order Comments: RED TRAY for good set up and intermittent supervision. 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 Thin liquids. Straws ok. Order Questions: Type Diet general Texture modifications dysphagia mechanical Fluid consistency modifications thin liquids allowed sodium restictions sodium restricted 2 gm fluid volume restictions 1800 ml fluid renal modifications potassium 3 gm K Nourishments Dietary nutrition supplements Boost; 1 Can Number of Occurrences: Until Specified Order Comments: With meals Order Questions: Supplement Boost Volume: 1 Can Objective Data Allergies: Allergies Allergen Reactions Flagyl [Metronidazole] Nausea And Vomiting and GI Upset Percocet [Oxycodone] Unknown Pregabalin Unknown Lyrica Current Medications: Current Facility-Administered Medications Medication Dose Route Frequency Provider Last Rate Last Dose acetaminophen (TYLENOL) tablet 500 mg 500 mg Oral Q6H PRN Anna Hastings MD 500 mg a t 02/14/20 1648 albuterol 2.5 mg/3 mL nebulizer solution 2.5 mg 2.5 mg Nebulization Q4H PRN Anna powell MD albuterol 2.5 mg/3 mL nebulizer solution 2.5 mg 2.5 mg Nebulization RT Q6H Anna condon MD 2.5 mg at 02/18/20 0758 alteplase (CATHFLO ACTIVASE) injection 2 mg 2 mg Intracatheter PRN Bruce Cochran MD apixaban (ELIQUIS) tablet 2.5 mg 2.5 mg Oral BID Bruce Cochran MD 2.5 mg at 0830 ascorbic acid (VITAMIN C) tablet 1,000 mg 1,000 mg Oral Daily Anna Hastings MD 1,00 0 mg at 02/17/20 0834 atorvaSTATin (LIPITOR) tablet 20 mg 20 mg Oral Nightly Anna Hastings MD 20 mg at 2018 brimonidine (ALPHAGAN) 0.2% ophthalmic solution 1 drop 1 drop Both Eyes BID Anna powell MD 1 drop at 02/17/20 0840 budesonide (PULMICORT) nebulizer solution 0.5 mg 0.5 mg Nebulization RT BID Bruce lynne MD 0.5 mg at 02/18/20 0758 bumetanide (BUMEX) tablet 1 mg 1 mg Oral BID (8 and 16) Bruce Cochran MD 1 mg at 0 02/17/20 1559 calcium carbonate (TUMS) chewable tablet 1,000 mg 1,000 mg Oral BID PRN Anna Hastings MD 1,000 mg at 02/17/20 1647 carvedilol (COREG) tablet 6.25 mg 6.25 mg Oral BID WC Anna Hastings MD 6.25 mg at 0 02/18/20 0830 cholecalciferol (VITAMIN D-3) tablet 1,000 Units 1,000 Units Oral Daily Anna Hastings MD 1,000 Units at 02/18/20 0830 collagenase (SANTYL) ointment Topical BID Keyur Thrasher MD dextrose 50% injection 12.5-25 g 12.5-25 g Intravenous PRN Anna Hastings MD And dextrose 10% (D10W) infusion Intravenous Continuous PRN Anna Hastings MD dicyclomine (BENTYL) capsule 10 mg 10 mg Oral Daily PRN Anna Hastings MD docusate sodium (COLACE) capsule 300 mg 300 mg Oral BID PRN Anna Hastings MD dorzolamide (TRUSOPT) 2% ophthalmic solution 1 drop 1 drop Both Eyes BID Anna Hastings MD 1 drop at 02/17/20 0840 escitalopram (LEXAPRO) tablet 15 mg 15 mg Oral Daily Anna Hastings MD 15 mg at 02/03 02/22 0829 famotidine (PEPCID) tablet 20 mg 20 mg Oral Nightly Anna Hastings MD 20 mg at 02/16 ferrous sulfate tablet 325 mg 325 mg Oral Daily with breakfast Anna Hastings MD 325 mg at 02/18/20 0830 fluticasone (FLONASE) 50 mcg/nasal spray 1 spray 1 spray Nasal Daily PRN Anna Hastings MD HYDROcodone-acetaminophen (NORCO) 5-325 mg per tablet 1-2 tablet 1-2 tablet Oral Q6H P RN Chace Higuera MD 1 tablet at 02/18/20 0830 insulin lispro (humaLOG KWIKPEN) injection (pen) 0-6 Units 0-6 Units Subcutaneous 4x D aily WC and HS Anna Hastings MD 1 Units at 02/17/202028 lactobacillus GG (CULTURELLE) capsule 1 capsule 1 capsule Oral BID Anna Hastings MD 1 capsule at 02/17/202017 latanoprost (XALATAN) 0.005% ophthalmic solution 1 drop 1 drop Both Eyes Nightly Rebeca Hastings MD 1 drop at 02/16/202099 LORazepam (ATIVAN) tablet 0.5 mg 0.5 mg Oral Q8H PRN Chace Higuera MD melatonin tablet 3 mg 3 mg Oral Nightly PRN Anna Hastings MD nitroglycerin (NITROSTAT) SL tablet 0.4 mg 0.4 mg Sublingual Q5 Min PRN Anna Hastings MD nystatin (MYCOSTATIN) cream Topical BID Chace Higuera MD pantoprazole (PROTONIX) DR tablet 40 mg 40 mg Oral QAM AC Anna Hastings MD 40 mg at 02/17/20 0646 Patient own medication - Brovana 15 mcg/2 mL nebulizer 15 mcg Nebulization RT BID Nguyễn Cochran MD 15 mcg at 02/18/20 0802 polyethylene glycol (MIRALAX) powder 17 g 17 g Oral Daily PRN Anna Hastings MD polyvinyl alcohol (LIQUITEARS) 1.4% ophthalmic solution 2 drop 2 drop Both Eyes QAM Li ara Hastings MD 2 drop at 02/17/20 0842 predniSONE (DELTASONE) tablet 10 mg 10 mg Oral Daily Chace Higuera MD 10 mg a t 02/18/20 0830 prochlorperazine tablet 10 mg 10 mg Oral Q8H PRN Anna Hastings MD senna (SENOKOT) tablet 8.6 mg 8.6 mg Oral BID PRN Anna Hastings MD 8.6 mg at 2050 sodium chloride (OCEAN) 0.65% nasal spray 2 spray 2 spray Each Nare Q1H PRN Anna powell MD sulfamethoxazole-trimethoprim (BACTRIM DS) 800-160 mg per tablet 1 tablet 1 tablet Ora l BID Bruce Cochran MD 1 tablet at 02/18/20 0830 traZODone (DESYREL) tablet 50 mg 50 mg Oral Nightly PRN Chace Higuera MD Current Infusions: dextrose 10% Hematology and anemia Recent Labs Lab 02/18/20 0623 02/17/20 1817 02/17/20 0544 02/16/20 0507 WBC 13.1* -- 12.1* -- 11.8* HGB 10.2* 10.3* 7.7* < > 7.6* HCT 32.0* 31.8* 24.9* < > 25.0* PLT 210 -- 199 -- 200 < > = values in this interval not displayed. No results for input(s): PROTIME, INR, PTT in the last 168 hours. No results for input(s): IRON, TIBC, PCTSAT, FERRITIN, TSH, [id number], FOLATE in the last 168 hours. Inflammatory markers No results for input(s): LACTATE, PROCALCITONI, CRP, ESR in the last 168 hours. Chemistry Recent Labs Lab 02/18/20 0602/17/20 0544 02/16/20 0506 GLU 83 83 84 NA 138 137 138 K 4.4 4.8 4.5 CL 99 101 100 CO2 36* 32* 34* ANIONGAP 3 4 4 BUN 26* 25* 28* CREA 0.78 0.80 0.70 GFRNONAA >60 >60 >60 CALCIUM 8.5* 8.4* 8.4* ALBUMIN 3.1* -- -- TOTALPROTEIN 5.4* -- -- BILITOT 0.5 -- -- ALKPHOS 92 -- -- ALT 64* -- -- AST 39* -- -- Recent Labs Lab 02/18/20 0602/17/20 0544 MG 2.1 1.9 Recent Labs Lab 02/18/20 0623 LIPASE 44 No results for input(s): TRIG, CHOL, HDL, LDL in the last 168 hours. No results for input(s): AMMONIA in the last 168 hours. Cardiology & Digoxin Recent Labs Lab 02/18/20 0623 02/17/20 0544 02/16/20 0506 02/15/20 0530 02/14/20 0515 BNP 1,058* 526* 609* 525* 501* ABG No results for input(s): PHART, PO2ART, ZUM5MZZ, LCT3XLW, BEART, [id number] in the last 168 h ours. No results for input(s): SPECSOURCE, PHPOCB, PCO2, PO2, HCO3, TCO2, BEART, [id number] in the last 168 hours. Drug of overdose and abuse No results for input(s): ALCOHOL, ACTMN, SALICYLATE in the last 168 hours. No results for input(s): AMPHEQUAL, BARBITURATE, BENZSCR, CANNIBSCR, AMPHETAMINE, METHADSCR , OPIATESCR in the last 168 hours. Urinalysis No results for input(s): GLUCOSEU, WBCUA, RBCUA, SQUAMEPIUA, BACTERIAUA, CULTIF in the last 168 hours. Point of care glucose Recent Labs Lab 02/18/20 0657 02/17/209 02/17/20 1649 02/17/20 1155 02/17/20 0645 02/16/202049 POCGLU 103 205* 176* 168* 92 219* Micro results more choices using dot micro (below is last 7 days) Microbiology Results (Last 7) Date with Culture/Sensitivity) Procedure Component Value Units Date/Time Culture, Wound, Smear, w/Anaerobe [[id number]] Collected: 02/16/201336 Order Status: Sent Lab Status: In process Updated: 02/16/20 134 Specimen: Tissue from Vertebrae, Sacral Narrative: The following orders were created for panel order Culture, Wound, Smear, w/Anaerobe. Procedure Abnormality Status --------- ------ Culture, Wound, Smear[[id number]] Preliminary result Culture, Anaerobic[[id number]] In process Please view results for these tests on the individual orders. Culture, Wound, Smear [[id number]] Collected: 02/16/201336 Order Status: Completed Lab Status: Preliminary result Updated: 02/18/20 1012 Specimen: Tissue from Vertebrae, Sacral Culture 4+ Enterococcus species Comment: Presumptive identification Identification and susceptibility to follow. 4+ Yeast species Comment: Identification to follow. Gram Stain Result No white blood cells (PMNs) seen 2+ Yeast with pseudohyphae Culture, Anaerobic [[id number]] Collected: 02/16/201336 Order Status: Resulted Lab Status: In process Updated: 02/16/20 1341 Specimen: Tissue from Vertebrae, Sacral Coronavirus (COVID-19) NAAT [[id number]] (Normal) Collected: 02/12/20 1615 Order Status: Completed Lab Status: Final result Updated: 02/13/20 1124 Specimen: Tissue from Nasopharynx SARS coronavirus 2 NAAT Not Detected Narrative: See [facility] STAT instructions for COVID-19 tracking [[id number]] Collected: 02/12/20 1615 Order Status: Completed Lab Status: Final result Updated: 02/13/20 1124 Specimen: Tissue from Nasopharynx [facility] COVID STAT instruction -- Radiology results (more choices using dot risresults) Xr Chest Ap Portable Result Date: 02/17/2020 SINGLE AP CHEST 02/17/2020 1:35 PM CLINICAL HISTORY: shortness of breath COMPARISON: Radiog raphs February 13 and more remote imaging FINDINGS: Aortic tortuosity is again evident. An aorti c valve prosthesis is again apparent. The cardiomediastinal silhouette is otherwise unremar kable. The pulmonary vasculature is mildly prominent. A tiny nodular density in the right m id lung corresponds with one of numerous clustered nodules described on previous CT from February 08. The lungs again appear somewhat hyperinflated but otherwise clear without pneumothorax or visible pleural effusion. Osteopenia is suggested. There is multilevel spondylosis. 1. MILD PROMINENCE OF THE PULMONARY VASCULATURE AND PULMONARY HYPERINFLATION. Dictated an d Signed by: Sivakumar Ramon MD Electronically signed: 02/17/2020 1:56 PM Reference. This is NOT part of [...] this chart may have been created with [employer] voice recognition software. Occasi onal wrong-word or sound-alike substitutions may have occurred due to the inherent owen itations of voice recognition software. Please read the chart carefully and recognize, using context, where these substitutions have occurred hace Higuera MD - 02/17/2020 8:50 AM PDTFormatting of this note might be different from the origin al. [place] HOSPITALIST PROGRESS NOTE Patient: Ángela Crowley : 1930: Age: 89 y.o. MedRec: [id number] PCP: Candido Link MD Admission date: 02/09/2020 Hospital day # : 7 Physician author: Chace Higuera MD Today: 02/17/2020 Assessment and Hospital Course Active Hospital Problems Diagnosis Arm DVT (deep venous thromboembolism), acute, left Iron deficiency anemia due to chronic blood loss Resolved Hospital Problems No resolved problems to display. 89F PMHx COPD on 2-3L NC Home O2, TAVR, CHFpEF, presented from home with acute metabolic en cephalopathy 2/2 medications vs infectious process. Treating cellulitis and infected sacral decubitus ulcer likely 2/2 MRSA. Hospital course complicated by worsening left arm swelling, first US of LUE on 02/06 negative for DVT, repeat 02/08 revealed extensive DVT and started on e liquis. Plan #Acute left arm DVT found on 02/08 Continue eliquis 2.5mg BID, swelling in left arm has resolved. Noted to be able to have sacral ulcer debridement on apixaban if indicated, debridement can be approached in outpatient setting with surgery outpatient. 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 Clindamycin on since 02/12. Given resistance on Wound cultu re to clindamycin changed to bactrim only. Dr. Thrasher consulted for general surgery, possible debridement in around 1 week if patient continued inpatient, otherwise per discussion with Dr. Thrasher would recommend continued woun d care with santyl and continued antibiotics to follow up outpatient with general surgery fo r outpatient debridement in 1-2 weeks. -f/u repeat 02/15 Wound culture: note that wound cultures hard to interpret due to fecal con tamination, MRSA grew on first wound culture that can help guide our antibiotic choice for n ow. Showing clinical improvement on bactrim at this time, will continue bactrim. -prelim for 02/15 wound culture 2+ timbo and enterococcus: addition of nystatin cream to s acral ulcer on 02/15. Enterococcus can be contaminant from stool following up susceptibilitie s. -continue bactrim #Leukocytosis Afebrile however has persistent fluctuating leukocytosis during hospitalization. Possibly r elated to steroids vs infection vs reactive, patient is malnourished, also possibly related to DVT. Is currently on stress dose of steroid 10mg BID (increased from 10mg daily chronic d ose at home) 11.8->12.1, stable -continue to monitor daily #Iron deficiency anemia No obvious source of bleeding noted on EGD/Colonoscopy performed in 2018, possible AVMs Continue ferrous sulfate Recommended to transfuse <7.0 hgb, the POA however would like blood transfusions <8.0 1U PRBC given on 02/06. #Hx of TAVR for #Hx of CAD #CHFpEF exacerbation CHF currently stable with lasix regimen given during hospital stay. Was changed to bumex on 02/12 tolerating well. Continued stable on home regimen of 2L NC oxygen. Reviewed 02/13 ECHO no significant changes noted. -lipitor -bumex 1mg BID -Coreg 6.25mg BID #FAITH resolved #Hypernatremia resolved #Acute metabolic encephalopathy, improved noted likely at baseline, delirium precautions, lexapro #malnutrition I attest that this clinical assessment using ASPEN criteria 1is accurate for this patient and supports that as a medical diagnosis.A specific nutrition treatment plan will be im [...] depletion Muscle Mass: Severe depletion DVT PPx: eliquis GI PPx: pepcid Diet: general dysphagia mechanical, thin liquids allowed, low sodium 2gm, 1800ml fluid rest rict Dispo: med/tele. likely 2-3 more days OMARI Tavera (Son) [phone] (H) [employer] cell phone ([employer]) Chace Higuera MD 02/17/2020 8:[address] [facility] Subjective CC Eager to get back home. Hgb dropped to 7.7 again, ordered 1U PRBC. No current sign of bleed ing. Stated she wants to go home this time, and possibly if she needs to come back to the hospit al after discharge may consider SNF. Continued pain in lower back, continued wound care for sacral decub. Per PT: patient is improving with ambulation and working well ROS See above Objective Exam General NAD, AOx1, not entirely to place or time but improved mentation Cardiac RRR, no murmurs rubs or gallups Extremities No edema Sacral decub ulcer noted Lung Mild dry crackles bases bilaterally, on 2L NC without labored breathing Abdominal Soft, NT, ND, NBS Neuro Generalized weakness slowly improving, 5/5 MS all extremities, AOx1 February 10 February 14 Consent for Photo on February 10 and February 14 The patient was advised that digital photos will be taken today of Ángela Crowley.The patient verbally consented to having these photos taken for purposes of documenting his/her condition.The patient understands that the images will be stored in their medical record . See Photographs in the Media tab which is located in Chart Review. The Document type is Clinical Image [employer]/Aruna. Some photographs may also appear in certain notes from this encounter. Echo February 13 Summary Left ventricle is normal in size and function. There is mild concentric hypertrophy ejection fraction is estimated at 65%. 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 No insufficiency is noted. Structurally normal tricuspid valve with mild to moderate insufficiency and peak velocity consistent with RVSP 41-46 mmHg. Left atrium is mildly enlarged. Compared with patient's last echocardiogram, aortic valve gradient is slightly higher. Otherwise no significant changes are noted. Signature Electronically signed by GLENDA STRATTON Serial weights: Filed Weights: 02/09/20 1836 02/10/20 0304 02/11/20 0540 02/13/20 0322 Weight: 51.3 kg (113 lb) 52.7 kg (116 lb 1.6 oz) 49.2 kg (108 lb 6.4 oz) 46.6 kg (102 lb 11 .8 oz) 02/15/20 0600 02/15/20 2118 02/17/20 0257 Weight: 46 kg (101 lb 6.6 oz) 46 kg (101 lb 6.6 oz) 45.3 kg (99 lb 14.4 oz) Most recent weight: Input and output 2 shifts and 3 shifts: Wt Readings from Last 1 Encounters: 02/17/20 45.3 kg (99 lb 14.4 oz) I/O last 24 Hours: In: 1241 [P.O.:1241] Out: 1240 [Urine:1240] I/O last 3 completed shifts: In: 1541 [P.O.:1541] Out: 1740 [Urine:1740] Vitals Ranges: Temp: [36.6 C (97.9 F)-37.2 C (99 F)] 36.8 C (98.2 F) Pulse: [82-113] 104 Resp: [16-24] 22 BP: (106-149)/(54-72) 141/64 Vitals: Temp: 36.8 C (98.2 F) BP: 141/64 Pulse: 104 Resp: 22 SpO2: 96 % SpO2 96 % on nasal cannula at flow rate 2L/min Diet and Supplements Diet Diet general; dysphagia mechanical; thin liquids allowed; sodium restricted 2 gm; 1800 ml fluid; potassium 3 gm K; Effective Now Number of Occurrences: Until Specified Order Comments: RED TRAY for good set up and intermittent supervision. 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 Thin liquids. Straws ok. Order Questions: Type Diet general Texture modifications dysphagia mechanical Fluid consistency modifications thin liquids allowed sodium restictions sodium restricted 2 gm fluid volume restictions 1800 ml fluid renal modifications potassium 3 gm K Nourishments Dietary nutrition supplements Boost; 1 Can Number of Occurrences: Until Specified Order Comments: With meals Order Questions: Supplement Boost Volume: 1 Can Objective Data Allergies: Allergies Allergen Reactions Flagyl [Metronidazole] Nausea And Vomiting and GI Upset Percocet [Oxycodone] Unknown Pregabalin Unknown Lyrica Current Medications: Current Facility-Administered Medications Medication Dose Route Frequency Provider Last Rate Last Dose acetaminophen (TYLENOL) tablet 500 mg 500 mg Oral Q6H PRN Anna Hastings MD 500 mg a t 02/14/20 1648 albuterol 2.5 mg/3 mL nebulizer solution 2.5 mg 2.5 mg Nebulization Q4H PRN Anna powell MD albuterol 2.5 mg/3 mL nebulizer solution 2.5 mg 2.5 mg Nebulization RT Q6H Anna condon MD 2.5 mg at 02/17/20 0848 alteplase (CATHFLO ACTIVASE) injection 2 mg 2 mg Intracatheter PRN Bruce Cochran MD apixaban (ELIQUIS) tablet 2.5 mg 2.5 mg Oral BID Bruce Cochran MD 2.5 mg at 0836 ascorbic acid (VITAMIN C) tablet 1,000 mg 1,000 mg Oral Daily Anna Hastings MD 1,00 0 mg at 02/17/20 0834 atorvaSTATin (LIPITOR) tablet 20 mg 20 mg Oral Nightly Anna Hastings MD 20 mg at 2052 brimonidine (ALPHAGAN) 0.2% ophthalmic solution 1 drop 1 drop Both Eyes BID Anna powell MD 1 drop at 02/17/20 0840 budesonide (PULMICORT) nebulizer solution 0.5 mg 0.5 mg Nebulization RT BID Bruce lynne MD 0.5 mg at 02/17/20 0847 bumetanide (BUMEX) tablet 1 mg 1 mg Oral BID (8 and 16) Bruce Cochran MD 1 mg at 0 02/17/20 0836 calcium carbonate (TUMS) chewable tablet 1,000 mg 1,000 mg Oral BID PRN Anna Hastings MD carvedilol (COREG) tablet 6.25 mg 6.25 mg Oral BID WC Anna Hastings MD 6.25 mg at 0 02/17/20 0836 cholecalciferol (VITAMIN D-3) tablet 1,000 Units 1,000 Units Oral Daily Anna Hastings MD 1,000 Units at 02/17/20 0836 collagenase (SANTYL) ointment Topical BID Keyur Thrasher MD dextrose 50% injection 12.5-25 g 12.5-25 g Intravenous PRN Anan Hastings MD And dextrose 10% (D10W) infusion Intravenous Continuous PRN Anna Hastings MD dicyclomine (BENTYL) capsule 10 mg 10 mg Oral Daily PRN Anna Hastings MD docusate sodium (COLACE) capsule 300 mg 300 mg Oral BID PRN Anna Hastings MD dorzolamide (TRUSOPT) 2% ophthalmic solution 1 drop 1 drop Both Eyes BID Anna Hastings MD 1 drop at 02/17/20 0840 escitalopram (LEXAPRO) tablet 15 mg 15 mg Oral Daily Anna Hastings MD 15 mg at 02/03 01/23 0831 famotidine (PEPCID) tablet 20 mg 20 mg Oral Nightly Anna Hastings MD 20 mg at 02/15 ferrous sulfate tablet 325 mg 325 mg Oral Daily with breakfast Anna Hastings MD 325 mg at 02/17/20 0836 fluticasone (FLONASE) 50 mcg/nasal spray 1 spray 1 spray Nasal Daily PRN Anna Hastings MD furosemide (LASIX) tablet 20 mg 20 mg Oral Daily Chace Higuera MD 20 mg at 0836 HYDROcodone-acetaminophen (NORCO) 5-325 mg per tablet 1-2 tablet 1-2 tablet Oral Q6H P RN Chace Higuera MD 1 tablet at 02/17/20 0646 insulin lispro (humaLOG KWIKPEN) injection (pen) 0-6 Units 0-6 Units Subcutaneous 4x D aily WC and HS Anna Hastings MD 1 Units at 02/16/202057 lactobacillus GG (CULTURELLE) capsule 1 capsule 1 capsule Oral BID Anna Hastings MD 1 capsule at 02/17/20 0833 latanoprost (XALATAN) 0.005% ophthalmic solution 1 drop 1 drop Both Eyes Nightly Rebeca Hastings MD 1 drop at 02/16/20 2100 melatonin tablet 3 mg 3 mg Oral Nightly PRN Anna Hastings MD nitroglycerin (NITROSTAT) SL tablet 0.4 mg 0.4 mg Sublingual Q5 Min PRN Anna Hastings MD nystatin (MYCOSTATIN) cream Topical BID Chace Higuera MD pantoprazole (PROTONIX) DR tablet 40 mg 40 mg Oral QAM AC Anna Hastings MD 40 mg at 02/17/20 0646 Patient own medication - Brovana 15 mcg/2 mL nebulizer 15 mcg Nebulization RT BID Nguyễn Cochran MD 15 mcg at 02/17/20 0847 polyethylene glycol (MIRALAX) powder 17 g 17 g Oral Daily PRN Anna Hastings MD polyvinyl alcohol (LIQUITEARS) 1.4% ophthalmic solution 2 drop 2 drop Both Eyes QAM Heidi Hastings MD 2 drop at 02/17/20 0842 predniSONE (DELTASONE) tablet 10 mg 10 mg Oral BID (8 and 16) Bruce Cochran MD 10 mg at 02/17/20 0833 prochlorperazine tablet 10 mg 10 mg Oral Q8H PRN Anna Hastings MD senna (SENOKOT) tablet 8.6 mg 8.6 mg Oral BID PRN Anna Hastings MD 8.6 mg at 205 sodium chloride (OCEAN) 0.65% nasal spray 2 spray 2 spray Each Nare Q1H PRN Anna powell MD sulfamethoxazole-trimethoprim (BACTRIM DS) 800-160 mg per tablet 1 tablet 1 tablet Ora l BID Bruce Cochran MD 1 tablet at 02/17/20 0834 Current Infusions: dextrose 10% Hematology and anemia Recent Labs Lab 02/17/20 0544 02/16/20 1202 02/16/20 0507 02/15/20 0530 WBC 12.1* -- 11.8* 15.6* HGB 7.7* 8.3* 7.6* 8.3* HCT 24.9* 27.3* 25.0* 27.5* PLT 199 -- 200 205 No results for input(s): PROTIME, INR, PTT in the last 168 hours. No results for input(s): IRON, TIBC, PCTSAT, FERRITIN, TSH, [id number], FOLATE in the last 168 hours. Inflammatory markers No results for input(s): LACTATE, PROCALCITONI, CRP, ESR in the last 168 hours. Chemistry Recent Labs Lab 02/17/20 0544 02/16/20 0506 02/15/20 0530 GLU 83 84 83 NA 137 138 138 K 4.8 4.5 4.6 CL 101 100 102 CO2 32* 34* 34* ANIONGAP 4 4 2* BUN 25* 28* 25* CREA 0.80 0.70 0.87 GFRNONAA >60 >60 >60 CALCIUM 8.4* 8.4* 8.4* Recent Labs Lab 02/17/20 0544 MG 1.9 No results for input(s): AMYLASE, LIPASE in the last 168 hours. No results for input(s): TRIG, CHOL, HDL, LDL in the last 168 hours. No results for input(s): AMMONIA in the last 168 hours. Cardiology & Digoxin Recent Labs Lab 02/17/20 0544 02/16/20 0506 02/15/20 0530 02/14/20 0515 02/13/20 1452 BNP 526* 609* 525* 501* 433* ABG No results for input(s): PHART, PO2ART, LWF5OLO, SCE4GZY, BEART, Y2NLCUOL in the last 168 h ours. No results for input(s): SPECSOURCE, PHPOCB, PCO2, PO2, HCO3, TCO2, BEART, [id number] in the last 168 hours. Drug of overdose and abuse No results for input(s): ALCOHOL, ACTMN, SALICYLATE in the last 168 hours. No results for input(s): AMPHEQUAL, BARBITURATE, BENZSCR, CANNIBSCR, AMPHETAMINE, METHADSCR , OPIATESCR in the last 168 hours. Urinalysis No results for input(s): GLUCOSEU, WBCUA, RBCUA, SQUAMEPIUA, BACTERIAUA, CULTIF in the last 168 hours. Point of care glucose Recent Labs Lab 02/17/20 0645 02/16/20 2050 02/16/20 1637 02/16/20 1121 02/16/20 0655 02/15/20 2117 POCGLU 92 219* 189* 125* 93 225* Micro results more choices using dot micro (below is last 7 days) Microbiology Results (Last 7) Date with Culture/Sensitivity) Procedure Component Value Units Date/Time Culture, Wound, Smear, w/Anaerobe [[id number]] Collected: 02/16/201336 Order Status: Sent Lab Status: In process Updated: 02/16/20 1341 Specimen: Tissue from Vertebrae, Sacral Narrative: The following orders were created for panel order Culture, Wound, Smear, w/Anaerobe. Procedure Abnormality Status --------- ------ Culture, Wound, Smear[[id number]] Preliminary result Culture, Anaerobic[[id number]] In process Please view results for these tests on the individual orders. Culture, Wound, Smear [[id number]] Collected: 02/16/201336 Order Status: Completed Lab Status: Preliminary result Updated: 02/17/20 0835 Specimen: Tissue from Vertebrae, Sacral Culture 4+ Enterococcus species Comment: Presumptive identification Isolating for additional information. 4+ Yeast species Comment: Isolating for additional information. Gram Stain Result No white blood cells (PMNs) seen 2+ Yeast with pseudohyphae Culture, Anaerobic [[id number]] Collected: 02/16/20 1337 Order Status: Resulted Lab Status: In process Updated: 02/16/20 1341 Specimen: Tissue from Vertebrae, Sacral Coronavirus (COVID-19) NAAT [[id number]] (Normal) Collected: 02/12/20 1615 Order Status: Completed Lab Status: Final result Updated: 02/13/20 1124 Specimen: Tissue from Nasopharynx SARS coronavirus 2 NAAT Not Detected Narrative: See scanned reoport [facility] STAT instructions for COVID-19 tracking [[id number]] Collected: 02/12/20 1615 Order Status: Completed Lab Status: Final result Updated: 02/13/20 1124 Specimen: Tissue from Nasopharynx [facility] COVID STAT instruction -- Radiology results (more choices using dot risresults) [...] this chart may have been created with [employer] voice recognition software. Occasi onal wrong-word or sound-alike substitutions may have occurred due to the inherent owen itations of voice recognition software. Please read the chart carefully and recognize, using context, where these substitutions have occurred erry, Chace hobson MD - 02/16/2020 3:24 PM PDTFormatting of this note might be different from the origin [place], [place] HOSPITALIST PROGRESS NOTE Patient: Ángela Crowley : 1930: Age: 89 y.o. MedRec: [id number] PCP: Candido Link MD Admission date: 02/09/2020 Hospital day # : 6 Physician author: Chace Higuera MD Today: 02/16/2020 Assessment and Hospital Course Active Hospital Problems Diagnosis Arm DVT (deep venous thromboembolism), acute, left Iron deficiency anemia due to chronic blood loss Resolved Hospital Problems No resolved problems to display. 89F PMHx COPD on 2-3L NC Home O2, TAVR, CHFpEF, presented from home with acute metabolic en cephalopathy 2/2 medications vs infectious process. Treating cellulitis and infected sacral decubitus ulcer likely 2/2 MRSA. Hospital course complicated by worsening left arm swelling, first US of LUE on 02/06 negative for DVT, repeat 02/08 revealed extensive DVT and started on e liquis. Plan #Acute left arm DVT found on 02/08 Continue eliquis 2.5mg BID, swelling in left arm has resolved. 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 Clindamycin on since 02/12. Given resistance on Wound cultu re to clindamycin changed to bactrim only. Dr. Thrasher consulted for general surgery, possible debridement in around 1 week if patient continued inpatient, otherwise per discussion with Dr. Thrasher would recommend continued woun d care with santyl and continued antibiotics to follow up outpatient with general surgery fo r outpatient debridement in 1-2 weeks. -f/u repeat 02/15 Wound culture: note that wound cultures hard to interpret due to fecal con tamination, MRSA grew on first wound culture that can help guide our antibiotic choice for n ow. Showing clinical improvement on bactrim at this time, will continue bactrim. -prelim for 02/15 wound culture 2+ timbo: addition of nystatin cream to sacral ulcer on #Leukocytosis Afebrile however has persistent fluctuating leukocytosis during hospitalization. Possibly r elated to steroids vs infection vs reactive, patient is malnourished, also possibly related to DVT. Is currently on stress dose of steroid 10mg BID (increased from 10mg daily chronic d ose at home) -continue to monitor daily #Iron deficiency anemia No obvious source of bleeding noted on EGD/Colonoscopy performed in 2018, possible AVMs Continue ferrous sulfate Recommended to transfuse <7.0 hgb, the POA however would like blood transfusions <8.0 1U PRBC given on 02/06. #Hx of TAVR for #Hx of CAD #CHFpEF exacerbation CHF currently stable with lasix regimen given during hospital stay. Was changed to bumex on 02/12 tolerating well. Continued stable on home regimen of 2L NC oxygen. Reviewed 02/13 ECHO no significant changes noted. -lipitor -bumex 1mg BID -Coreg 6.25mg BID #FAITH resolved #Hypernatremia resolved #Acute metabolic encephalopathy noted likely at baseline, delirium precautions, lexapro #malnutrition I attest that this clinical assessment using ASPEN criteria 1is accurate for this patient and supports that as a medical diagnosis.A specific nutrition treatment plan will be im [...] depletion Muscle Mass: Severe depletion DVT PPx: eliquis GI PPx: pepcid Diet: general dysphagia mechanical, thin liquids allowed, low sodium 2gm, 1800ml fluid rest rict Dispo: likely 1-3 more days POHesham Tavera (Son) [phone] (H) business cell phone ([employer]) Chace Higuera MD 02/16/2020 3:[address] [facility] Subjective CC Continued to ask to want to go home. No acute events otherwise overnight. Afebrile. Arm swe lling resolved. Feeding and drinking water herself, visibly stronger from the time I saw her on 02/07. Discussed case with Son Yadiel, who is POA, at 1230pm, who is understandably upset about s ituation. Demanded I give 1 unit PRBC despite indication not present as hgb on repeat was 8. 3 at noon from 7.6 in the am. Also upset about choice of antibiotics and I, [facility] ated I will reevaluate the antibiotics choices to check on this as I came back on service on 02/15. I however did state her WBC count is improving and that though still in elevated rang e, there are other causes of elevated WBC count other than infection at this time. The POA d emanded I reculture the sacral ulcer after he discussed with outside surgeons and pharmacist s about the case, however it is unknown if these surgeons or pharmacists have the ability to access this current case. I acquiesced to the repeat culture and ordered repeat wound cultu re for 02/15 for review. Will keep in contact with Son Yadiel the POA. The POA also stated t he patient to not return home until repeat cultures obtained. Notified the POA about possibl e debridement of sacral ulcer to be done outpatient but he stated he wants to keep the patie nt inpatient until debridement can be completed, will continue to follow with surgery Dr. Laila schreiber for debridement recs, but after discussion with Dr. Thrasher on 02/15 would recommend outp atient debridement in 1-2 weeks after continued santyl treatments and antibiotics. ROS See above Objective Exam General NAD, AOx1 Cardiac RRR, no murmurs rubs or gallups Extremities No edema Sacral decub ulcer noted Lung Mild dry crackles bases bilaterally, on 2L NC without labored breathing Abdominal Soft, NT, ND, NBS Neuro Generalized weakness, AOx1 February 10 February 14 Consent for Photo on February 10 and February 14 The patient was advised that digital photos will be taken today of Ángela Crowley.The patient verbally consented to having these photos taken for purposes of documenting his/her condition.The patient understands that the images will be stored in their medical record . See Photographs in the Media tab which is located in Chart Review. The Document type is Clinical Image Haidarnellu/Aruna. Some photographs may also appear in certain notes from this encounter. Echo February 13 Summary Left ventricle is normal in size and function. There is mild concentric hypertrophy ejection fraction is estimated at 65%. 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 No insufficiency is noted. Structurally normal tricuspid valve with mild to moderate insufficiency and peak velocity consistent with RVSP 41-46 mmHg. Left atrium is mildly enlarged. Compared with patient's last echocardiogram, aortic valve gradient is slightly higher. Otherwise no significant changes are noted. Signature Electronically signed by GLENDA STRATTON Serial weights: Filed Weights: 02/09/20 1836 02/10/20 0304 02/11/20 0540 02/13/20 0322 Weight: 51.3 kg (113 lb) 52.7 kg (116 lb 1.6 oz) 49.2 kg (108 lb 6.4 oz) 46.6 kg (102 lb 11 .8 oz) 02/15/20 0602/15/202117 Weight: 46 kg (101 lb 6.6 oz) 46 kg (101 lb 6.6 oz) Most recent weight: Input and output 2 shifts and 3 shifts: Wt Readings from Last 1 Encounters: 02/15/20 46 kg (101 lb 6.6 oz) I/O last 24 Hours: In: 1140 [P.O.:1140] Out: 720 [Urine:720] I/O last 3 completed shifts: In: 1340 [P.O.:1340] Out: 1290 [Urine:1290] Vitals Ranges: Temp: [35.6 C (96.1 F)-36.9 C (98.5 F)] 36.9 C (98.5 F) Pulse: [81-101] 82 Resp: [20-24] 24 BP: (111-129)/(58-62) 129/61 Vitals: Temp: 36.9 C (98.5 F) BP: 129/61 Pulse: 82 Resp: 24 SpO2: 96 % SpO2 96 % on nasal cannula at flow rate 2L/min Diet and Supplements Diet Diet general; dysphagia mechanical; thin liquids allowed; sodium restricted 2 gm; 1800 ml fluid; potassium 3 gm K; Effective Now Number of Occurrences: Until Specified Order Comments: RED TRAY for good set up and intermittent supervision. 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 Thin liquids. Straws ok. Order Questions: Type Diet general Texture modifications dysphagia mechanical Fluid consistency modifications thin liquids allowed sodium restictions sodium restricted 2 gm fluid volume restictions 1800 ml fluid renal modifications potassium 3 gm K Nourishments Dietary nutrition supplements Boost; 1 Can Number of Occurrences: Until Specified Order Comments: With meals Order Questions: Supplement Boost Volume: 1 Can Objective Data Allergies: Allergies Allergen Reactions Flagyl [Metronidazole] Nausea And Vomiting and GI Upset Percocet [Oxycodone] Unknown Pregabalin Unknown Lyrica Current Medications: Current Facility-Administered Medications Medication Dose Route Frequency Provider Last Rate Last Dose acetaminophen (TYLENOL) tablet 500 mg 500 mg Oral Q6H PRN Anna Hastings MD 500 mg a t 02/14/20 1648 albuterol 2.5 mg/3 mL nebulizer solution 2.5 mg 2.5 mg Nebulization Q4H PRN Anna powell MD albuterol 2.5 mg/3 mL nebulizer solution 2.5 mg 2.5 mg Nebulization RT Q6H Anna condon MD 2.5 mg at 02/16/20 1500 alteplase (CATHFLO ACTIVASE) injection 2 mg 2 mg Intracatheter PRN Bruce Cochran MD apixaban (ELIQUIS) tablet 2.5 mg 2.5 mg Oral BID Bruce Cochran MD 2.5 mg at 0843 ascorbic acid (VITAMIN C) tablet 1,000 mg 1,000 mg Oral Daily Anna Hastings MD 1,00 0 mg at 02/16/20 0842 atorvaSTATin (LIPITOR) tablet 20 mg 20 mg Oral Nightly Anna Hastings MD 20 mg at 2118 brimonidine (ALPHAGAN) 0.2% ophthalmic solution 1 drop 1 drop Both Eyes BID Anna powell MD 1 drop at 02/16/20 0853 budesonide (PULMICORT) nebulizer solution 0.5 mg 0.5 mg Nebulization RT BID Bruce lynne MD 0.5 mg at 02/16/20 0930 bumetanide (BUMEX) tablet 1 mg 1 mg Oral BID (8 and 16) Bruce Cochran MD 1 mg at 0 02/16/20 0843 calcium carbonate (TUMS) chewable tablet 1,000 mg 1,000 mg Oral BID PRN Anna Hastings MD carvedilol (COREG) tablet 6.25 mg 6.25 mg Oral BID WC Anna Hastings MD 6.25 mg at 0 02/16/20 0843 cholecalciferol (VITAMIN D-3) tablet 1,000 Units 1,000 Units Oral Daily Anna Hastings MD 1,000 Units at 02/16/20 0842 collagenase (SANTYL) ointment Topical BID Keyur Thrasher MD dextrose 50% injection 12.5-25 g 12.5-25 g Intravenous PRN Anna Hastings MD And dextrose 10% (D10W) infusion Intravenous Continuous PRN Anna Hastings MD dicyclomine (BENTYL) capsule 10 mg 10 mg Oral Daily PRN Anna Hastings MD docusate sodium (COLACE) capsule 300 mg 300 mg Oral BID PRN Anna Hastings MD dorzolamide (TRUSOPT) 2% ophthalmic solution 1 drop 1 drop Both Eyes BID Anna Hastings MD 1 drop at 02/16/20 0850 escitalopram (LEXAPRO) tablet 15 mg 15 mg Oral Daily Anna Hastings MD 15 mg at 02/03 12/23 0841 famotidine (PEPCID) tablet 20 mg 20 mg Oral Nightly Anna Hastings MD 20 mg at 02/14 2118 ferrous sulfate tablet 325 mg 325 mg Oral Daily with breakfast Anna Hastings MD 325 mg at 02/16/20 0841 fluticasone (FLONASE) 50 mcg/nasal spray 1 spray 1 spray Nasal Daily PRN Anna Hastings MD HYDROcodone-acetaminophen (NORCO) 5-325 mg per tablet 1 tablet 1 tablet Oral Q6H PRN Haritha Cochran MD 1 tablet at 02/16/20 1053 insulin lispro (humaLOG KWIKPEN) injection (pen) 0-6 Units 0-6 Units Subcutaneous 4x D aily and HS Anna Hastings MD 1 Units at 02/15/20 2121 lactobacillus GG (CULTURELLE) capsule 1 capsule 1 capsule Oral BID Anna Hastings MD 1 capsule at 02/16/20 0842 latanoprost (XALATAN) 0.005% ophthalmic solution 1 drop 1 drop Both Eyes Nightly Rebeca Hastings MD 1 drop at 02/15/20 2126 melatonin tablet 3 mg 3 mg Oral Nightly PRN Anna Hastings MD nitroglycerin (NITROSTAT) SL tablet 0.4 mg 0.4 mg Sublingual Q5 Min PRN Anna Hastings MD pantoprazole (PROTONIX) DR tablet 40 mg 40 mg Oral QAM AC Anna Hastings MD 40 mg at 02/16/20 0652 Patient own medication - Brovana 15 mcg/2 mL nebulizer 15 mcg Nebulization RT BID Nguyễn Cochran MD 15 mcg at 02/16/20 0946 polyethylene glycol (MIRALAX) powder 17 g 17 g Oral Daily PRN Anna Hastings MD polyvinyl alcohol (LIQUITEARS) 1.4% ophthalmic solution 2 drop 2 drop Both Eyes QAM Li ara Hastings MD 2 drop at 02/16/20 0848 predniSONE (DELTASONE) tablet 10 mg 10 mg Oral BID (8 and 16) Bruce Cochran MD 10 mg at 02/16/20 0843 prochlorperazine tablet 10 mg 10 mg Oral Q8H PRN Anna Hastings MD senna (SENOKOT) tablet 8.6 mg 8.6 mg Oral BID PRN Anna Hastings MD 8.6 mg at 2050 sodium chloride (OCEAN) 0.65% nasal spray 2 spray 2 spray Each Nare Q1H PRN Anna powell MD sulfamethoxazole-trimethoprim (BACTRIM DS) 800-160 mg per tablet 1 tablet 1 tablet Ora l BID Bruce Cochran MD 1 tablet at 02/16/20 0843 Current Infusions: dextrose 10% Hematology and anemia Recent Labs Lab 02/16/20 1202 02/16/20 0507 02/15/20 0530 02/14/20 0515 02/09/20 2217 WBC -- 11.8* 15.6* 11.9* < > 12.5* HGB 8.3* 7.6* 8.3* 8.3* < > 9.5* HCT 27.3* 25.0* 27.5* 26.8* < > 30.2* PLT -- 200 205 204 < > 218 NEUPCT -- -- -- -- -- 86.1* < > = values in this interval not displayed. Recent Labs Lab 02/10/20 0548 02/09/20 2217 PROTIME 14.2* 13.2 INR 1.0 0.9 PTT -- 26 No results for input(s): IRON, TIBC, PCTSAT, FERRITIN, TSH, [id number], FOLATE in the last 168 hours. Inflammatory markers No results for input(s): LACTATE, PROCALCITONI, CRP, ESR in the last 168 hours. Chemistry Recent Labs Lab 02/16/20 0506 02/15/20 0530 02/14/20 0502/09/20 2217 GLU 84 83 86 < > 81 NA 138 138 137 < > 136 K 4.5 4.6 5.0 < > 4.4 CL 100 102 102 < > 100 CO2 34* 34* 31 < > 32* ANIONGAP 4 2* 4 < > 4 BUN 28* 25* 18 < > 22 CREA 0.70 0.87 0.84 < > 1.02 GFRNONAA >60 >60 >60 < > 51* CALCIUM 8.4* 8.4* 8.3* < > 7.8* ALBUMIN -- -- -- -- 2.5* TOTALPROTEIN -- -- -- -- 5.0* BILITOT -- -- -- -- 0.4 ALKPHOS -- -- -- -- 98 ALT -- -- -- -- 12 AST -- -- -- -- 20 < > = values in this interval not displayed. No results for input(s): MG, PHOS in the last 168 hours. No results for input(s): AMYLASE, LIPASE in the last 168 hours. No results for input(s): TRIG, CHOL, HDL, LDL in the last 168 hours. No results for input(s): AMMONIA in the last 168 hours. Cardiology & Digoxin Recent Labs Lab 02/16/20 0506 02/15/20 0530 02/14/20 0515 02/13/20 1452 02/11/20 1440 BNP 609* 525* 501* 433* 585* ABG No results for input(s): PHART, PO2ART, WFH4OOA, RGQ1KFM, BEART, [id number] in the last 168 h ours. No results for input(s): SPECSOURCE, PHPOCB, PCO2, PO2, HCO3, TCO2, BEART, [id number] in the last 168 hours. Drug of overdose and abuse No results for input(s): ALCOHOL, ACTMN, SALICYLATE in the last 168 hours. No results for input(s): AMPHEQUAL, BARBITURATE, BENZSCR, CANNIBSCR, AMPHETAMINE, METHADSCR , OPIATESCR in the last 168 hours. Urinalysis No results for input(s): GLUCOSEU, WBCUA, RBCUA, SQUAMEPIUA, BACTERIAUA, CULTIF in the last 168 hours. Point of care glucose Recent Labs Lab 02/16/20 1121 02/16/20 0655 02/15/20 2117 02/15/20 1714 02/15/20 1127 02/14/20 2130 POCGLU 125* 93 225* 201* 189* 241* Micro results more choices using dot micro (below is last 7 days) Microbiology Results (Last 7) Date with Culture/Sensitivity) Procedure Component Value Units Date/Time Culture, Wound, Smear, w/Anaerobe [[id number]] Collected: 02/16/201336 Order Status: Sent Lab Status: In process Updated: 02/16/20 134 Specimen: Tissue from Vertebrae, Sacral Narrative: The following orders were created for panel order Culture, Wound, Smear, w/Anaerobe. Procedure Abnormality Status --------- ------ Culture, Wound, Smear[[id number]] Preliminary result Culture, Anaerobic[[id number]] In process Please view results for these tests on the individual orders. Culture, Wound, Smear [[id number]] Collected: 02/16/201336 Order Status: Completed Lab Status: Preliminary result Updated: 02/16/20 1507 Specimen: Tissue from Vertebrae, Sacral Gram Stain Result No white blood cells (PMNs) seen 2+ Yeast with pseudohyphae Culture, Anaerobic [[id number]] Collected: 02/16/20 1337 Order Status: Resulted Lab Status: In process Updated: 02/16/20 1341 Specimen: Tissue from Vertebrae, Sacral Coronavirus (COVID-19) NAAT [[id number]] (Normal) Collected: 02/12/20 1615 Order Status: Completed Lab Status: Final result Updated: 02/13/20 1124 Specimen: Tissue from Nasopharynx SARS coronavirus 2 NAAT Not Detected Narrative: See scanned reoport [facility] STAT instructions for COVID-19 tracking [[id number]] Collected: 02/12/20 1615 Order Status: Completed Lab Status: Final result Updated: 02/13/20 1124 Specimen: Tissue from Nasopharynx [facility] COVID STAT instruction -- Radiology results (more choices using dot risresults) Xr Chest Pa And Lateral Result Date: 02/14/2020 EXAM: XR CHEST PA AND LATERAL dated 02/14/2020 5:16 PM HISTORY: Lung crackles are these COPD or from CHF? Comparison: 02/11/2020. TECHNIQUE: Frontal and lateral views of the chest. FINDI NGS: The lungs are symmetrically aerated. There is hyperexpansion. There is a collection o f radiopaque densities projecting over the soft tissues and right lung. No interstitial thi ckening. There are no pleural effusions. There is no pneumothorax. The cardiac and medias tinal contours are not enlarged. No acute osseous abnormalities. Findings consistent with chronic obstructive pulmonary disease. No radiographic findings to suggest congestive heart failure. Dictated and Signed by: Edwin Jarrell MD Electronical ly signed: 02/14/2020 7:55 PM Reference. This is NOT part of [...] this chart may have been created with [employer] voice recognition software. Occasi onal wrong-word or sound-alike substitutions may have occurred due to the inherent owen itations of voice recognition software. Please read the chart carefully and recognize, using context, where these substitutions have occurred Hailey Stein RRT - 02/16/2020 9:55 AM PDTMouth rinse post neb therapy treatment, tolerated well. Bruce Forde MD - 02/15/2020 2:32 PM PDT . [place], [place] HOSPITALIST PROGRESS NOTE Patient: Ángela Crowley : 1930: Age: 89 y.o. MedRec: [id number] PCP: Candido Link MD Admission date: 02/09/2020 Hospital day # : 5 Physician author: Bruce Cochran MD Today: 02/15/2020 Subjective Location, Severity, Quality, Context, Timing, Duration, Modifying factors, Associated signs & symptoms CC Sent home on February 09 returned that same day for left hand swelling worse when got home Patient says she is NOT SOB (she might be just saying that to go home) She says her son could not make it in today (RN says could not get medical director/head team physician) ROS See above Objective Exam General Alert asks to go home. Hard of hearing Cardiac Regula Extremities no sig ankle edema Lungs laying on her side (so I could check and photo decub) lungs slight dependent crackles also some rhonchi is NOT labored Abdominal Neuro alert oriented to name, hospital but says is in [place], she thinks the year is 1919, cannot name the month, she told me she was 89 years old and later said was 39 years old February 10 February 14 Consent for Photo on February 10 and February 14 The patient was advised that digital photos will be taken today of Ángela Crowley.The patient verbally consented to having these photos taken for purposes of documenting his/her condition. The patient understands that the images will be stored in their medical record. See Photographs in the Media tab which is located in Chart Review. The Document type is Clinical Image Haiku/Aruna. Some photographs may also appear in certain notes from this encounter. (dot meyexam) (dot meyvent) Assessment and Hospital Course Document 1+: monitor, evaluate, assess or treat (dot meyprob vs meyprobap and possibly meyprior) Active Hospital Problems Diagnosis Arm DVT (deep venous thromboembolism), acute, left Iron deficiency anemia due to chronic blood loss Resolved Hospital Problems No resolved problems to display. Please also refer to the Admission note [...] x1 not to place or time. Passed COMBUSTION ANALYST evaluation with dysphagia diet ordered on 01/31 COVID 19 test negative on 01/30 CT head/chest/abd/pelvis identified small right pleural effusion with possible infection pr esent that can be possible pneumonia. No clear signs of acute abdominal infection. No acute intracranial abnormalities 02/06:mental status slowly improved, can feed self up to chair, pain improved/ 1U PRBC casey sfused 02/07: improved mental status, feeding self. Improved leukocytosis, improved Hgb -norco PRN for pain -delirium precautions -Increased lexaproup to 15mg this visit. 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 troponins stable, no chest pain during admission. 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 Repeat BNP 02/01 635 Changed lasix 20IV BID to 20 PO BID on 02/01, clinically euvolemic, lasix 20mg PO BID is mayela e dose, on 02/05 changed to lasix 20mg PO Daily,back to lasix 20mg PO BID on 02/06 -Continue lasix 20mg POBID -Continue coreg -Continue aspirin/statin -Trend I/Os, daily weights #Anemia, iron deficiency Iron Low, no sign of bleeding, likely chronic.On ferrous sulfate BID. Given 1U PRBC 02/06 w ith improvement to hgb 9.1. will monitor #Esophageal dysphagia #New diagnosis of achalasia Found to have significant dysphagia on COMBUSTION ANALYST evaluation. Will require upper GI workup per COMBUSTION ANALYST . Recommend reflux precautions and puree diet. [...] that this clinical assessment using ASPEN criteria 1is accurate for this patient and supports that as a medical diagnosis.A specific nutrition treatment plan will be im [...] No DVT #FAITH, resolved #Hypernatremia, resolved DVT PPx:SCDs, held AC for anemia GI PPx: pepcid Diet: puree diet, 1800ml fluid restriction, Na 2gm Dispo:continue PT/OT. Will plan for home with home health with PT, Nurse aide, wheelchair , FWW, and wound care for sacral decub, plan for DC on 02/08 if able Goals of care: Palliative care consulted, appreciate recs. No hospice as per son. Continue full care. Acute left arm DVT on US February 08 left subclavain and axillary veins and left basilic vein No DVT seen on US done February 06 DVT related to prior IV IV access difficult so on Lovneox instead of heparin Admitter spoke with son about using eliquis (Hx of needing blood transfusions and one hospi aidee stay where it was started dropped HgB 2 points) and Hx of bruising on anticoagulation Different opinions on dosing from pharmacists will start on 5 mg bid X 5 days then 2.5 mg bid Stable will change CBC to daily as repeated draws can cause anemia WBC improved to 11.9 and HgB better at 8.3, glucoses are OK (POC) Screening Covid-19 from February 11 is negative Friday started Apixaban 5 mg bid X approx 5 days then 2.5 mg bid to start on Friday and orders were adjusted to do that. Again she can have sacral ulcer debridement on Apixaban Fe Def Anemia with EGD and Colonoscopy 2018 no obvious source but possible she had AVMs HgB 8.9 prior 8.8 prior 9.5 prior 9.1 (whe was 7.5 February 06) Recent Ferritin of 186 February 04 TAVR for PAF CAD Cath 2019 not show sig obstructive disease so ASA Echo as below slight higher AV gradient otherwise OK Echo February 13 Summary Left ventricle is normal in size and function. There is mild concentric hypertrophy ejection fraction is estimated at 65%. 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 No insufficiency is noted. Structurally normal tricuspid valve with mild to moderate insufficiency and peak velocity consistent with RVSP 41-46 mmHg. Left atrium is mildly enlarged. Compared with patient's last echocardiogram, aortic valve gradient is slightly higher. Otherwise no significant changes are noted. Signature Electronically signed by GLENDA STRATTON COPD 9th less SOB today does have home O2 10th SOB and crackly I believe soms is CHF and will Rx and son will bring in her [place]. S he is on 2 liter O2 and looking at various older notes her lungs at times have been clear Crackles are more dry COPD type but I discussed possibility of CHF with patient, her n maryann veins NOT elevated and no sig peripheral edema, will do PA and LAT CXR today, she is a p uzzle. 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 Chronic decubitus sacral Photo today is worse versus November will get wound care consult Reviewed her prior wound cultures indeed had MRSA but also in the final had B frag and had Propionobacteremia. I will get PICC ordered (RN to try to get in peripheral IV pending t hat) and spoke with Dr Thrasher whom will consult and needs Covid screen. decided against PICC ( due to risk of DVT) 10th if still in hospital Dr Thrasher would debride in a week if discharged he would see in 2 weeks, says sometimes the Santyl does really well and not need surgical debridement, use Sa ntyl bid (and prn) cover with pink foam dressing 12th Wound looks similar (today's photo better illuminated with natural light) the Santyl h as softened the eschar, the WBC is higher today (spurious vs real vs steroids) If still in the Hospital Dr Thrasher would be willing to debride (that could be later this we ek) Pre-Op Covid 19 negative February 11 Changed to Doxy and Clinda on She did better on Septra regarding WBC count so changed to Septra Clinda on Leukocytosis Suspect due to stress of DVT or sacral infection sgy consult today Dr Thrasher not need to take to OR at this time he ordered enzymatic de bridement and he reminded me that cultures from a decubitus are hard to interpret. 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 Discussed difficulties with IV access and not getting PICC and risks of PICC and tunneled c atheter. Discussed yesterday might need to transfuse and or stop anticoag. 12th phone call with Wayne whom could not come in today Addendum (02/15/2020 4:50 PM) Family had called nursing was concerned that Ángela was suicidal. Patient does say that in her 20s she cut herself but she does NOT have plan to hurt herself and she promises me she won't hurt herself. Nursing also talked with patient. Patient is NO T suicidal. She was quite mer in discussing things today. (dot meyaddendum tdnorefesh nownorefresh) (dot malnutattest is attestation for malnutrition) (dot lastbmi[1) Plan Wayne could not come in today (lack of medical director/head team physician) Apixaban drops to 2.5 mg bid on Fri Consider debridement later this week for decub Changed to Septra + Clinda instead of Doxy + Clinda Dr Thrasher will recheck Decub today or tomorrow and if decides needs sgy he can contact her POA son Wayne SWITCHBOARD AND CONTROL ROOM OPERATOR is Brovana 15 mcg/2 ml and budesonide 0.5 mg/2 ml mix together and give in neb bid Addendum (02/13/2020 3:49 PM) Recheck Labs K was better HgB down 0.1 he did bring in her Neb Rx, orders adjusted Time spent [id number] with patient and/or delong unit time (of which more than 50% was in c ounseling and/or coordination the patient's care as outlined above) in minutes exceeded 40 m inutes. From Prior to Regarding her sacral cultures again the bugs founds not necessarily culprit given contamina tion of wound being close to anus Consider Septa + Clinda Doxy + Clinda Note that Doxy covers some Propionbacteriums Addendum (02/12/2020 6:58 PM) Spoke with son again Son says no nursing homes Addendum (02/10/2020 2:33 PM) I spoke with son about Dx and the 2 ultrasounds and risk of bleeding and not candidate for filter for arm DVT and risk of sig PE is less than with leg DVT and likely to increase need for PRBC and consideration for Pill cam outpatient (risk of getting stuck) and ordered PT OT and discussed her Sacral Decub and Septra Bruce Cochran MD 02/15/2020 2:[address] [facility] (dot meyaddendum tdnorefesh nownorefresh) (dot meytime meycritical meysign) Objective Data Serial weights: Filed Weights: 02/09/20 1836 02/10/20 0304 02/11/20 0540 02/13/20 0322 Weight: 51.3 kg (113 lb) 52.7 kg (116 lb 1.6 oz) 49.2 kg (108 lb 6.4 oz) 46.6 kg (102 lb 11 .8 oz) 02/15/20 0600 Weight: 46 kg (101 lb 6.6 oz) Most recent weight: Input and output 2 shifts and 3 shifts: Wt Readings from Last 1 Encounters: 02/15/20 46 kg (101 lb 6.6 oz) I/O last 24 Hours: In: 600 [P.O.:600] Out: 570 [Urine:570] I/O last 3 completed shifts: In: 600 [P.O.:600] Out: 1120 [Urine:1120] Vitals Ranges: Temp: [36.7 C (98.1 F)-37 C (98.6 F)] 36.7 C (98.1 F) Pulse: [88-101] 91 Resp: [20-22] 22 BP: (107-171)/(53-79) 171/79 Vitals: Temp: 36.7 C (98.1 F) BP: 171/79 Pulse: 91 Resp: 22 SpO2: 100 % SpO2 100 % on nasal cannula at flow rate 2L/min Diet and Supplements Diet Diet general; dysphagia mechanical; thin liquids allowed; sodium restricted 2 gm; 1800 ml fluid; potassium 3 gm K; Effective Now Number of Occurrences: Until Specified Order Comments: RED TRAY for good set up and intermittent supervision. 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 Thin liquids. Straws ok. Order Questions: Type Diet general Texture modifications dysphagia mechanical Fluid consistency modifications thin liquids allowed sodium restictions sodium restricted 2 gm fluid volume restictions 1800 ml fluid renal modifications potassium 3 gm K Nourishments Dietary nutrition supplements Boost; 1 Can Number of Occurrences: Until Specified Order Comments: With meals Order Questions: Supplement Boost Volume: 1 Can Reference. This is NOT part of the [...] Patient is improved today with resolution of symptom Worse with recurrence of symptoms requiring further testing Portions of this chart may have been created with [employer] voice recognition software. Occasi onal wrong-word or sound-alike substitutions may have occurred due to the inherent owen itations of voice recognition software. Please read the chart carefully and recognize, using context, where these substitutions have occurred. eyer, Bruce Coe MD - 02/14/2020 12:13 PM PDT [place], [place] HOSPITALIST PROGRESS NOTE Patient: Ángela Crowley : 1930: Age: 89 y.o. MedRec: [id number] PCP: Candido Link MD Admission date: 02/09/2020 Hospital day # : 4 Physician author: Bruce Cochran MD Today: 02/14/2020 Subjective Location, Severity, Quality, Context, Timing, Duration, Modifying factors, Associated signs & symptoms CC Sent home on February 09 returned that same day for left hand swelling worse when got home She says intermittent SOB Says wants to go home Says son gives her medicines Does NOT want SNF I came in during lunch (she looked good sitting up eating) but came back post lunch so as n ot to bother her during meal ROS See above Objective Exam General Alert asking to go home. Cardiac Regular, JVD not elevated Extremities no sig ankle edema Lungs Sitting her up she has even percussion slight tachypnea BBIR with BBIC COPD type up h fpc way probably not wet sounding Abdominal Neuro alert oriented to name, hospital but says is in [place], she thinks the year is 1919, cannot name the month, she told me she was 89 years old and later said was 39 years old February 10 Consent for Photo The patient was advised that digital photos will be taken today of Ángela Crowley.The patient verbally consented to having these photos taken for purposes of documenting his/her condition. The patient understands that the images will be stored in their medical record. See Photographs in the Media tab which is located in Chart Review. The Document type is Clinical Image Stefu/Aruna. Some photographs may also appear in certain notes from this encounter. (dot meyexam) (dot meyvent) Assessment and Hospital Course Document 1+: monitor, evaluate, assess or treat (dot meyprob vs meyprobap and possibly meyprior) Active Hospital Problems Diagnosis Arm DVT (deep venous thromboembolism), acute, left Iron deficiency anemia due to chronic blood loss Resolved Hospital Problems No resolved problems to display. Please also refer to the Admission note [...] x1 not to place or time. Passed COMBUSTION ANALYST evaluation with dysphagia diet ordered on 01/31 COVID 19 test negative on 01/30 CT head/chest/abd/pelvis identified small right pleural effusion with possible infection pr esent that can be possible pneumonia. No clear signs of acute abdominal infection. No acute intracranial abnormalities 02/06:mental status slowly improved, can feed self up to chair, pain improved/ 1U PRBC casey sfused 02/07: improved mental status, feeding self. Improved leukocytosis, improved Hgb -norco PRN for pain -delirium precautions -Increased lexaproup to 15mg this visit. 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 troponins stable, no chest pain during admission. 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 Repeat BNP 02/01 635 Changed lasix 20IV BID to 20 PO BID on 02/01, clinically euvolemic, lasix 20mg PO BID is mayela e dose, on 02/05 changed to lasix 20mg PO Daily,back to lasix 20mg PO BID on 02/06 -Continue lasix 20mg POBID -Continue coreg -Continue aspirin/statin -Trend I/Os, daily weights #Anemia, iron deficiency Iron Low, no sign of bleeding, likely chronic.On ferrous sulfate BID. Given 1U PRBC 02/06 w ith improvement to hgb 9.1. will monitor #Esophageal dysphagia #New diagnosis of achalasia Found to have significant dysphagia on COMBUSTION ANALYST evaluation. Will require upper GI workup per COMBUSTION ANALYST . Recommend reflux precautions and puree diet. [...] spasm likely related to achalasia. D/w Dr. Grimes GI and next step would be to perform manometry as outpatient for confirmation of bhavani lasia and to approach treatment as outpatient. -Continue dysphagia diet -f/u outpatient #malnutrition I attest that this clinical assessment using ASPEN criteria 1is accurate for this patient and supports that as a medical diagnosis.A specific nutrition treatment plan will be im [...] No DVT #FAITH, resolved #Hypernatremia, resolved DVT PPx:SCDs, held AC for anemia GI PPx: pepcid Diet: puree diet, 1800ml fluid restriction, Na 2gm Dispo:continue PT/OT. Will plan for home with home health with PT, Nurse aide, wheelchair , FWW, and wound care for sacral decub, plan for DC on 02/08 if able Goals of care: Palliative care consulted, appreciate recs. No hospice as per son. Continue full care. Acute left arm DVT on US February 08 left subclavain and axillary veins and left basilic vein No DVT seen on US done February 06 DVT related to prior IV IV access difficult so on Lovneox instead of heparin Admitter spoke with son about using eliquis (Hx of needing blood transfusions and one hospi aidee stay where it was started dropped HgB 2 points) and Hx of bruising on anticoagulation Different opinions on dosing from pharmacists will start on 5 mg bid X 5 days then 2.5 mg bid Stable will change CBC to daily as repeated draws can cause anemia WBC improved to 11.9 and HgB better at 8.3, glucoses are OK (POC) Screening Covid-19 from February 11 is negative Fe Def Anemia with EGD and Colonoscopy 2018 no obvious source but possible she had AVMs 7th HgB 8.9 prior 8.8 prior 9.5 prior 9.1 (whe was 7.5 February 06) Recent Ferritin of 186 February 04 TAVR for PAF CAD Cath 2018 not show sig obstructive disease so ASA COPD 9th less SOB today does have home O2 10th SOB and crackly I believe soms is CHF and will Rx and son will bring in her Brovana. S he is on 2 liter O2 and looking at various older notes her lungs at times have been clear Crackles are more dry COPD type but I discussed possibility of CHF with patient, her n maryann veins NOT elevated and no sig peripheral edema, will do PA and LAT CXR today, she is a p uzzle. Chronic decubitus sacral Photo today is worse versus November will get wound care consult Reviewed her prior wound cultures indeed had MRSA but also in the final had B frag and had Propionobacteremia. I will get PICC ordered (RN to try to get in peripheral IV pending t hat) and spoke with Dr Thrasher whom will consult and needs Covid screen. 9th decided against PICC (10th due to risk of DVT) 10th if still in hospital Dr Thrasher would debride in a week if discharged he would see in 2 weeks, says sometimes the Santyl does really well and not need surgical debridement, use Sa ntyl bid (and prn) cover with pink foam dressing Leukocytosis Suspect due to stress of DVT or sacral infection sgy consult today Dr Thrasher not need to take to OR at this time he ordered enzymatic de bridement and he reminded me that cultures from a decubitus are hard to interpret. 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 Discussed difficulties with IV access and not getting PICC and risks of PICC and tunneled c atheter. Discussed yesterday might need to transfuse and or stop anticoag. (dot meyaddendum tdnorefesh nownorefresh) (myla sena is attestation for malnutrition) (myla lastbmi[1) Plan Friday started Apixaban 5 mg bid X approx 5 days then 2.5 mg bid to start on Friday (kb orona need to order then) Echo CXR Arcadio Black to come in on Friday Changed to Doxy and Clinda on I think she has SOB on top of her COPD and with no IV access anymore (lost and is high risk for PICC or midline complication) and for better absorption will change to Bumex. Am rechecking CBC and BMP suspect the K was spurious Son is bringing in Brovana he says mix it with her budesonide bid SWITCHBOARD AND CONTROL ROOM OPERATOR is Brovana 15 mcg/2 ml and budesonide 0.5 mg/2 ml mix together and give in neb bid Addendum (02/13/2020 3:49 PM) Recheck Labs K was better HgB down 0.1 he did bring in her Neb Rx, orders adjusted Time spent [id number] with patient and/or delong unit time (of which more than 50% was in c ounseling and/or coordination the patient's care as outlined above) in minutes exceeded 40 m inutes. From Prior to Regarding her sacral cultures again the bugs founds not necessarily culprit given contamina tion of wound being close to anus Consider Septa + Clinda Doxy + Clinda Note that Doxy covers some Propionbacteriums Addendum (02/12/2020 6:58 PM) Spoke with son again Son says no nursing homes Addendum (02/10/2020 2:33 PM) I spoke with son about Dx and the 2 ultrasounds and risk of bleeding and not candidate for filter for arm DVT and risk of sig PE is less than with leg DVT and likely to increase need for PRBC and consideration for Pill cam outpatient (risk of getting stuck) and ordered PT OT and discussed her Sacral Decub and Septra Bruce Cochran MD 02/14/2020 12:[address] [facility] (dot meyaddendum tdnorefesh nownorefresh) (myla meytime meycritical meysign) Objective Data Serial weights: Filed Weights: 02/09/20 1836 02/10/20 0304 02/11/20 0540 02/13/20 0322 Weight: 51.3 kg (113 lb) 52.7 kg (116 lb 1.6 oz) 49.2 kg (108 lb 6.4 oz) 46.6 kg (102 lb 11 .8 oz) Most recent weight: Input and output 2 shifts and 3 shifts: Wt Readings from Last 1 Encounters: 02/13/20 46.6 kg (102 lb 11.8 oz) I/O last 24 Hours: In: 544 [P.O.:544] Out: 900 [Urine:900] I/O last 3 completed shifts: In: 644 [P.O.:644] Out: 1875 [Urine:1875] Vitals Ranges: Temp: [36.2 C (97.1 F)-37.2 C (99 F)] 37.2 C (99 F) Pulse: [81-110] 85 Resp: [16-24] 20 BP: (102-134)/(55-80) 102/55 Vitals: Temp: 37.2 C (99 F) BP: 102/55 Pulse: 85 Resp: 20 SpO2: 95 %(S itting at side of bed.) SpO2 95 %(Sitting at side of bed.) on nasal cannula at flow rate 2L/min Diet and Supplements Diet Diet general; dysphagia mechanical; thin liquids allowed; sodium restricted 2 gm; 1800 ml fluid; potassium 3 gm K; Effective Now Number of Occurrences: Until Specified Order Comments: RED TRAY for good set up and intermittent supervision. 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 Thin liquids. Straws ok. Order Questions: Type Diet general Texture modifications dysphagia mechanical Fluid consistency modifications thin liquids allowed sodium restictions sodium restricted 2 gm fluid volume restictions 1800 ml fluid renal modifications potassium 3 gm K Nourishments Dietary nutrition supplements Boost; 1 Can Number of Occurrences: Until Specified Order Comments: With meals Order Questions: Supplement Boost Volume: 1 Can Reference. This is NOT part of the [...] Patient is improved today with resolution of symptom Worse with recurrence of symptoms requiring further testing Portions of this chart may have been created with [employer] voice recognition software. Occasi onal wrong-word or sound-alike substitutions may have occurred due to the inherent owen itations of voice recognition software. Please read the chart carefully and recognize, using context, where these substitutions have occurred. eyer, Bruce Coe MD - 02/13/2020 1:[address] [facility] [place] HOSPITALIST PROGRESS NOTE Patient: Ángela Crowley : 1930: Age: 89 y.o. MedRec: [id number] PCP: Candido Link MD Admission date: 02/09/2020 Hospital day # : 3 Physician author: Bruce Cochran MD Today: 02/13/2020 Subjective Location, Severity, Quality, Context, Timing, Duration, Modifying factors, Associated signs & symptoms CC Sent home on February 09 returned that same day for left hand swelling worse when got home She asks again to go home She says her SOB is chronic but worse over time She says it is from "too much oxygen" (she means the flow rate, but it is set at 2 liter an d at home she says uses 2-3 liter) No Pleurisy ROS See above Objective Exam General Alert asking to go home. She said she was cold and Dimas checked her temp it was ju st shy of 98 degrees Cardiac Regular, JVD hard to assess but probably OK Extremities Lungs She has rhonchi and laying on her side she has dependent crackles in addition to the COPD crackles she has tachypnea and looks slight labored Abdominal Neuro alert February 10 Consent for Photo The patient was advised that digital photos will be taken today of Ángela Crowley.The patient verbally consented to having these photos taken for purposes of documenting his/her condition. The patient understands that the images will be stored in their medical record. See Photographs in the Media tab which is located in Chart Review. The Document type is Clinical Image Farheen/Aruna. Some photographs may also appear in certain notes from this encounter. (dot meyexam) (dot meyvent) Assessment and Hospital Course Document 1+: monitor, evaluate, assess or treat (dot meyprob vs meyprobap and possibly meyprior) Active Hospital Problems Diagnosis Arm DVT (deep venous thromboembolism), acute, left Iron deficiency anemia due to chronic blood loss Resolved Hospital Problems No resolved problems to display. Please also refer to the Admission note [...] x1 not to place or time. Passed COMBUSTION ANALYST evaluation with dysphagia diet ordered on 01/31 COVID 19 test negative on 01/30 CT head/chest/abd/pelvis identified small right pleural effusion with possible infection pr esent that can be possible pneumonia. No clear signs of acute abdominal infection. No acute intracranial abnormalities 02/06:mental status slowly improved, can feed self up to chair, pain improved/ 1U PRBC casey sfused 02/07: improved mental status, feeding self. Improved leukocytosis, improved Hgb -norco PRN for pain -delirium precautions -Increased lexaproup to 15mg this visit. 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 troponins stable, no chest pain during admission. 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 Repeat BNP 02/01 635 Changed lasix 20IV BID to 20 PO BID on 02/01, clinically euvolemic, lasix 20mg PO BID is mayela e dose, on 02/05 changed to lasix 20mg PO Daily,back to lasix 20mg PO BID on 02/06 -Continue lasix 20mg POBID -Continue coreg -Continue aspirin/statin -Trend I/Os, daily weights #Anemia, iron deficiency Iron Low, no sign of bleeding, likely chronic.On ferrous sulfate BID. Given 1U PRBC 02/06 w ith improvement to hgb 9.1. will monitor #Esophageal dysphagia #New diagnosis of achalasia Found to have significant dysphagia on COMBUSTION ANALYST evaluation. Will require upper GI workup per COMBUSTION ANALYST . Recommend reflux precautions and puree diet. [...] that this clinical assessment using ASPEN criteria 1is accurate for this patient and supports that as a medical diagnosis.A specific nutrition treatment plan will be im [...] No DVT #FAITH, resolved #Hypernatremia, resolved DVT PPx:SCDs, held AC for anemia GI PPx: pepcid Diet: puree diet, 1800ml fluid restriction, Na 2gm Dispo:continue PT/OT. Will plan for home with home health with PT, Nurse aide, wheelchair , FWW, and wound care for sacral decub, plan for DC on 02/08 if able Goals of care: Palliative care consulted, appreciate recs. No hospice as per son. Continue full care. Acute left arm DVT on US February 08 left subclavain and axillary veins and left basilic vein No DVT seen on US done February 06 DVT related to prior IV IV access difficult so on Lovneox instead of heparin Admitter spoke with son about using eliquis (Hx of needing blood transfusions and one hospi aidee stay where it was started dropped HgB 2 points) and Hx of bruising on anticoagulation Different opinions on dosing from pharmacists will start on 5 mg bid X 5 days then 2.5 mg bid Stable will change CBC to daily as repeated draws can cause anemia Fe Def Anemia with EGD and Colonoscopy 2018 no obvious source but possible she had AVMs HgB 8.9 prior 8.8 prior 9.5 prior 9.1 (whe was 7.5 February 06) Recent Ferritin of 186 February 04 TAVR for PAF CAD Cath 2018 not show sig obstructive disease so ASA COPD 9th less SOB today does have home O2 SOB and crackly I believe soms is CHF and will Rx and son will bring in her Brovana. S he is on 2 liter O2 and looking at various older notes her lungs at times have been clear Chronic decubitus sacral Photo today is worse versus November will get wound care consult 8th Reviewed her prior wound cultures indeed had MRSA but also in the final had B frag and had Propionobacteremia. I will get PICC ordered (RN to try to get in peripheral IV pending t hat) and spoke with Dr Thrasher whom will consult and needs Covid screen. 9th decided against PICC (10th due to risk of DVT) 10th if still in hospital Dr Thrasher would debride in a week if discharged he would see in 2 weeks, says sometimes the Kori does really well and not need surgical debridement, use Sa ntyl bid (and prn) cover with pink foam dressing Leukocytosis Suspect due to stress of DVT or sacral infection sgy consult today Dr Thrasher not need to take to OR at this time he ordered enzymatic de bridement and he reminded me that cultures from a decubitus are hard to interpret. This is b ecause can get fecal contamination her chronic prednisone is 10 mg daily will increase to 10 mg bid given stress of hospi talization Son Wayne phone call he was [facility], is [address] Cochran 10th phone call (some other day too) (dot meyaddendum tdnorefesh nownorefresh) (dot malnutattest is attestation for malnutrition) (dot lastbmi[1) Plan Friday started Apixaban 5 mg bid X approx 5 days then 2.5 mg bid discussed with son may need to stop and or transfused and DVT arm vs DVT leg Changed to Doxy and Clinda I think she has SOB on top of her COPD and with no IV access anymore (lost and is high risk for PICC or midline complication) and for better absorption will change to Bumex. 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 From Prior to Regarding her sacral cultures again the bugs founds not necessarily culprit given contamina tion of wound being close to anus Consider Septa + Clinda Doxy + Clinda Note that Doxy covers some Propionbacteriums Addendum (02/12/2020 6:58 PM) Spoke with son again Son says no nursing homes Addendum (02/10/2020 2:33 PM) I spoke with son about Dx and the 2 ultrasounds and risk of bleeding and not candidate for filter for arm DVT and risk of sig PE is less than with leg DVT and likely to increase need for PRBC and consideration for Pill cam outpatient (risk of getting stuck) and ordered PT OT and discussed her Sacral Decub and Septra Bruce Cochran MD 02/13/2020 1:[address] [facility] (dot meyaddendum tdnorefesh nownorefresh) (dot meytime meycritical meysign) Objective Data Serial weights: Filed Weights: 02/09/20 1836 02/10/20 0304 02/11/20 0540 02/13/20 0322 Weight: 51.3 kg (113 lb) 52.7 kg (116 lb 1.6 oz) 49.2 kg (108 lb 6.4 oz) 46.6 kg (102 lb 11 .8 oz) Most recent weight: Input and output 2 shifts and 3 shifts: Wt Readings from Last 1 Encounters: 02/13/20 46.6 kg (102 lb 11.8 oz) I/O last 24 Hours: In: 572 [P.O.:572] Out: 977 [Urine:975; Other:2] I/O last 3 completed shifts: In: 572 [P.O.:572] Out: 1477 [Urine:1475; Other:2] Vitals Ranges: Temp: [35.9 C (96.6 F)-36.9 C (98.4 F)] 35.9 C (96.6 F) Pulse: [79-103] 79 Resp: [18-22] 18 BP: (116-145)/(58-70) 124/58 Vitals: Temp: 35.9 C (96.6 F) BP: 124/58 Pulse: 79 Resp: 18 SpO2: 99 % SpO2 99 % on nasal cannula at flow rate 3L/min Diet and Supplements Diet Diet general; dysphagia mechanical; thin liquids allowed; sodium restricted 2 gm; 1800 ml fluid; Effective Now Number of Occurrences: Until Specified Order Comments: RED TRAY for good set up and intermittent supervision. 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 Thin liquids. Straws ok. Order Questions: Type Diet general Texture modifications dysphagia mechanical Fluid consistency modifications thin liquids allowed sodium restictions sodium restricted 2 gm fluid volume restictions 1800 ml fluid Nourishments Dietary nutrition supplements Boost; 1 Can Number of Occurrences: Until Specified Order Comments: With meals Order Questions: Supplement Boost Volume: 1 Can Reference. This is NOT part of the [...] Patient is improved today with resolution of symptom Worse with recurrence of symptoms requiring further testing Portions of this chart may have been created with [employer] voice recognition software. Occasi onal wrong-word or sound-alike substitutions may have occurred due to the inherent owen itations of voice recognition software. Please read the chart carefully and recognize, using context, where these substitutions have occurred. uKeyur schreiber MD - 02/13/2020 9:31 AM PDTWound changed with nurse: minimal change to fibrinous exudate. Ms. Crowley has no complaints: doesn't feel pain with santyl ointment. I abida rec continuing the santyl, although may take several weeks to remove the fibrinous m aterial. Generally easy to apply and tolerated. Ultimately may need debridement. More important is to change the source of pressure at the sacrum. Likely her limited mobility leads to more time in bed and in a sitting position. Wound nurse to eval in AM -- would value her opinion on further care. Bruce Forde MD - 02/12/2020 6:14 PM PDT [facility] NM HOSPITALIST PROGRESS NOTE Patient: Ángela Crowley : 1930: Age: 89 y.o. MedRec: [id number] PCP: Candido Link MD Admission date: 02/09/2020 Hospital day # : 2 Physician author: Bruce Cochran MD Today: 02/12/2020 Subjective Location, Severity, Quality, Context, Timing, Duration, Modifying factors, Associated signs & symptoms CC Sent home on February 09 returned that same day for left hand swelling worse when got home She says her SOB is better Has had it for several weeks and she has home O2 Asks to go home again (does every day) "not much cough" She is so hard of hearing I had to write some questions ROS See above Objective Exam General Alert Cardiac Regular Extremities Lungs still the rhonchi and dry crackles has slight tachypnea not labored at rest Abdominal Neuro alert February 10 Consent for Photo The patient was advised that digital photos will be taken today of Ángela Crowley.The patient verbally consented to having these photos taken for purposes of documenting his/her condition. The patient understands that the images will be stored in their medical record. See Photographs in the Media tab which is located in Chart Review. The Document type is Clinical Image Stefu/Aruna. Some photographs may also appear in certain notes from this encounter. (dot meyexam) (dot meyvent) Assessment and Hospital Course Document 1+: monitor, evaluate, assess or treat (dot meyprob vs meyprobap and possibly meyprior) Active Hospital Problems Diagnosis Arm DVT (deep venous thromboembolism), acute, left Iron deficiency anemia due to chronic blood loss Resolved Hospital Problems No resolved problems to display. Please also refer to the Admission note [...] x1 not to place or time. Passed COMBUSTION ANALYST evaluation with dysphagia diet ordered on 01/31 COVID 19 test negative on 01/30 CT head/chest/abd/pelvis identified small right pleural effusion with possible infection pr esent that can be possible pneumonia. No clear signs of acute abdominal infection. No acute intracranial abnormalities 02/06:mental status slowly improved, can feed self up to chair, pain improved/ 1U PRBC casey sfused 02/07: improved mental status, feeding self. Improved leukocytosis, improved Hgb -norco PRN for pain -delirium precautions -Increased lexaproup to 15mg this visit. 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 troponins stable, no chest pain during admission. 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 Repeat BNP 02/01 635 Changed lasix 20IV BID to 20 PO BID on 02/01, clinically euvolemic, lasix 20mg PO BID is mayela e dose, on 02/05 changed to lasix 20mg PO Daily,back to lasix 20mg PO BID on 02/06 -Continue lasix 20mg POBID -Continue coreg -Continue aspirin/statin -Trend I/Os, daily weights #Anemia, iron deficiency Iron Low, no sign of bleeding, likely chronic.On ferrous sulfate BID. Given 1U PRBC 02/06 w ith improvement to hgb 9.1. will monitor #Esophageal dysphagia #New diagnosis of achalasia Found to have significant dysphagia on COMBUSTION ANALYST evaluation. Will require upper GI workup per COMBUSTION ANALYST . Recommend reflux precautions and puree diet. [...] spasm likely related to achalasia. D/w Dr. Grimes GI and next step would be to perform manometry as outpatient for confirmation of bhavani lasia and to approach treatment as outpatient. -Continue dysphagia diet -f/u outpatient #malnutrition I attest that this clinical assessment using ASPEN criteria 1is accurate for this patient and supports that as a medical diagnosis.A specific nutrition treatment plan will be im [...] No DVT #FAITH, resolved #Hypernatremia, resolved DVT PPx:SCDs, held AC for anemia GI PPx: pepcid Diet: puree diet, 1800ml fluid restriction, Na 2gm Dispo:continue PT/OT. Will plan for home with home health with PT, Nurse aide, wheelchair , FWW, and wound care for sacral decub, plan for DC on 02/08 if able Goals of care: Palliative care consulted, appreciate recs. No hospice as per son. Continue full care. Acute left arm DVT on US February 08 left subclavain and axillary veins and left basilic vein No DVT seen on US done February 06 DVT related to prior IV IV access difficult so on Lovneox instead of heparin Admitter spoke with son about using eliquis (Hx of needing blood transfusions and one hospi aidee stay where it was started dropped HgB 2 points) and Hx of bruising on anticoagulation 8th Different opinions on dosing from pharmacists will start on 5 mg bid X 5 days then 2.5 mg bid Stable will change CBC to daily as repeated draws can cause anemia Fe Def Anemia with EGD and Colonoscopy 2018 no obvious source but possible she had AVMs HgB 8.9 prior 8.8 prior 9.5 prior 9.1 (whe was 7.5 February 06) Recent Ferritin of 186 February 04 TAVR for PAF CAD Cath 2018 not show sig obstructive disease so ASA COPD 9 less SOB today does have home O2 Chronic decubitus sacral Photo today is worse versus November will get wound care consult Reviewed her prior wound cultures indeed had MRSA but also in the final had B frag and had Propionobacteremia. I will get PICC ordered (RN to try to get in peripheral IV pending t hat) and spoke with Dr Thrasher whom will consult and needs Covid screen. decided against PICC Leukocytosis Suspect due to stress of DVT or sacral infection sgy consult today Dr Thrasher not need to take to OR at this time he ordered enzymatic de bridement and he reminded me that cultures from a decubitus are hard to interpret. This is b ecause can get fecal contamination Arcadio Black phone call he was [facility], is [address] Cochran (dot meyaddendum tdnorefesh nownorefresh) (myla sena is attestation for malnutrition) (myla lasti[1) Plan Friday started Apixaban 5 mg bid X approx 5 days then 2.5 mg bid I cancelled the PICC as will try to go to orals soon and PICC likely to cause DVT She refused some labs on February 11 Regarding her sacral cultures again the bugs founds not necessarily culprit given contamina tion of wound being close to anus Consider Septa + Clinda Doxy + Clinda Note that Doxy covers some Propionbacteriums Addendum (02/12/2020 6:58 PM) Spoke with son again Son says no nursing homes Addendum (02/10/2020 2:33 PM) I spoke with son about Dx and the 2 ultrasounds and risk of bleeding and not candidate for filter for arm DVT and risk of sig PE is less than with leg DVT and likely to increase need for PRBC and consideration for Pill cam outpatient (risk of getting stuck) and ordered PT OT and discussed her Sacral Decub and Septra Bruce Cochran MD 02/12/2020 6:[address] [facility] (dot meyaddendum tdnorefesh nownorefresh) (dot meytime meycritical meysign) Objective Data Serial weights: Filed Weights: 02/09/20 1836 02/10/20 0304 02/11/20 0540 Weight: 51.3 kg (113 lb) 52.7 kg (116 lb 1.6 oz) 49.2 kg (108 lb 6.4 oz) Most recent weight: Input and output 2 shifts and 3 shifts: Wt Readings from Last 1 Encounters: 02/11/20 49.2 kg (108 lb 6.4 oz) I/O last 24 Hours: In: 100 [P.O.:100] Out: 800 [Urine:800] I/O last 3 completed shifts: In: 100 [P.O.:100] Out: 1250 [Urine:1250] Vitals Ranges: Temp: [35.9 C (96.6 F)-36.9 C (98.4 F)] 36.9 C (98.4 F) Pulse: [82-103] 88 Resp: [18-24] 20 BP: (108-145)/(57-67) 124/60 Vitals: Temp: 36.9 C (98.4 F) BP: 124/60 Pulse: 88 Resp: 20 SpO2: 97 % SpO2 97 % on nasal cannula at flow rate 3L/min Diet and Supplements Diet Diet general; dysphagia mechanical; thin liquids allowed; sodium restricted 2 gm; 1800 ml fluid; Effective Now Number of Occurrences: Until Specified Order Comments: RED TRAY for good set up and intermittent supervision. 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 Thin liquids. Straws ok. Order Questions: Type Diet general Texture modifications dysphagia mechanical Fluid consistency modifications thin liquids allowed sodium restictions sodium restricted 2 gm fluid volume restictions 1800 ml fluid Nourishments Dietary nutrition supplements Boost; 1 Can Number of Occurrences: Until Specified Order Comments: With meals Order Questions: Supplement Boost Volume: 1 Can Reference. This is NOT part of the [...] Patient is improved today with resolution of symptom Worse with recurrence of symptoms requiring further testing Portions of this chart may have been created with [employer] OnDem[employer] voice recognition software. Occasi onal wrong-word or sound-alike substitutions may have occurred due to the inherent owen itations of voice recognition software. Please read the chart carefully and recognize, using context, where these substitutions have occurred. Jose Saavedra PharmD - 02/11/2020 6:02 PM PDT . DOSE PER PHARMACY: Meropenem Subjective/Objective: Ángela Crowley is a 89 y.o. year old female is receiving meropenem for infected sacral decubious Blood pressure 132/61, pulse 91, temperature 36.3 C (97.4 F), temperature source Oral, resp. rate 18, weight 49.2 kg (108 lb 6.4 oz), SpO2 98 %, not currently . Estimated Creatinine Clearance: 38 mL/min (based on SCr of 0.78 mg/dL). Recent Labs Lab 02/11/20 1440 02/11/20 0830 02/11/20 0243 02/10/20 2002 02/10/20 1454 02/10/20 0548 02/09/20 2217 02/08/20 0609 02/07/20 0545 WBC 12.4* 12.1* 11.9* 13.3* 16.0* < > 11.6* 12.5* 10.8 < > 15.1* CREA -- -- 0.78 -- -- -- 0.78 1.02 0.78 -- 0.66 PLT 205 212 262 167 181 < > 223 218 123* < > 109* < > = values in this interval not displayed. Assessment/Plan: 1. Will dose meropenem 500 mg IV q8h 2. Pharmacist to evaluate patient daily for further dose adjustments Electronically signed by: Jose Riggs PharmD 02/11/2020 6:02 PM eyer, Bruce Coe MD - 02/11/2020 1:56 PM PDT . [place], [place] HOSPITALIST PROGRESS NOTE Patient: Ángela Crowley : 1930: Age: 89 y.o. MedRec: [id number] PCP: Candido Link MD Admission date: 02/09/2020 Hospital day # : 1 Physician author: Bruce Cochran MD Today: 02/11/2020 Subjective Location, Severity, Quality, Context, Timing, Duration, Modifying factors, Associated signs & symptoms CC Sent home on February 09 returned that same day for left hand swelling worse when got home SOB is chronic but today she thinks is worse We discussed going to blood thinner tablet Not coughing during visit She eats less as to cut down on stools and I told her that is not good to do ROS See above Objective Exam General Tired but alert Cardiac Regular Extremities left forearm is smaller in size Lung Rhonchi, she has what sounds like diffuse crackles throughtout is on 3 liter NC O2, I think this is from her COPD and atelectasis but she has Hx of CHF (is and Os balanced and we ights bed not reliable) Abdominal + BS soft NT Neuro awake tired February 10 Consent for Photo The patient was advised that digital photos will be taken today of Ángela Crowley.The patient verbally consented to having these photos taken for purposes of documenting his/her condition. The patient understands that the images will be stored in their medical record. See Photographs in the Media tab which is located in Chart Review. The Document type is Clinical Image Haiku/Aruna. Some photographs may also appear in certain notes from this encounter. (dot meyexam) (dot meyvent) Assessment and Hospital Course Document 1+: monitor, evaluate, assess or treat (dot meyprob vs meyprobap and possibly meyprior) Active Hospital Problems Diagnosis Arm DVT (deep venous thromboembolism), acute, left Iron deficiency anemia due to chronic blood loss Resolved Hospital Problems No resolved problems to display. Please also refer to the Admission note [...] x1 not to place or time. Passed COMBUSTION ANALYST evaluation with dysphagia diet ordered on 01/31 COVID 19 test negative on 01/30 CT head/chest/abd/pelvis identified small right pleural effusion with possible infection pr esent that can be possible pneumonia. No clear signs of acute abdominal infection. No acute intracranial abnormalities 02/06:mental status slowly improved, can feed self up to chair, pain improved/ 1U PRBC casey sfused 02/07: improved mental status, feeding self. Improved leukocytosis, improved Hgb -norco PRN for pain -delirium precautions -Increased lexaproup to 15mg this visit. 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 troponins stable, no chest pain during admission. 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 Repeat BNP 02/01 635 Changed lasix 20IV BID to 20 PO BID on 02/01, clinically euvolemic, lasix 20mg PO BID is mayela e dose, on 02/05 changed to lasix 20mg PO Daily,back to lasix 20mg PO BID on 02/06 -Continue lasix 20mg POBID -Continue coreg -Continue aspirin/statin -Trend I/Os, daily weights #Anemia, iron deficiency Iron Low, no sign of bleeding, likely chronic.On ferrous sulfate BID. Given 1U PRBC 02/06 w ith improvement to hgb 9.1. will monitor #Esophageal dysphagia #New diagnosis of achalasia Found to have significant dysphagia on COMBUSTION ANALYST evaluation. Will require upper GI workup per COMBUSTION ANALYST . Recommend reflux precautions and puree diet. [...] that this clinical assessment using ASPEN criteria 1is accurate for this patient and supports that as a medical diagnosis.A specific nutrition treatment plan will be im [...] No DVT #FAITH, resolved #Hypernatremia, resolved DVT PPx:SCDs, held AC for anemia GI PPx: pepcid Diet: puree diet, 1800ml fluid restriction, Na 2gm Dispo:continue PT/OT. Will plan for home with home health with PT, Nurse aide, wheelchair , FWW, and wound care for sacral decub, plan for DC on 02/08 if able Goals of care: Palliative care consulted, appreciate recs. No hospice as per son. Continue full care. Acute left arm DVT on US February 08 left subclavain and axillary veins and left basilic vein No DVT seen on US done February 06 DVT related to prior IV IV access difficult so on Lovneox instead of heparin Admitter spoke with son about using eliquis (Hx of needing blood transfusions and one hospi aidee stay where it was started dropped HgB 2 points) and Hx of bruising on anticoagulation Different opinions on dosing from pharmacists will start on 5 mg bid X 5 days then 2.5 mg bid Fe Def Anemia with EGD and Colonoscopy 2018 no obvious source but possible she had AVMs HgB 8.9 prior 8.8 prior 9.5 prior 9.1 (whe was 7.5 February 06) Recent Ferritin of 186 February 04 TAVR for PAF CAD Cath 2018 not show sig obstructive disease so ASA COPD Chronic decubitus sacral 8th Photo today is worse versus November will get wound care consult 8th Reviewed her prior wound cultures indeed had MRSA but also in the final had B frag and had Propionobacteremia. I will get PICC ordered (RN to try to get in peripheral IV pending t hat) and spoke with Dr Thrasher whom will consult and needs Covid screen. Leukocytosis Suspect due to stress of DVT 8th or sacral infection Arcadio Black 7th phone call he was [facility], is [address] Cochran (myla morganyadddelmyum tdnorefesh nownorefresh) (myla sena is attestation for malnutrition) (dot lastbmi[1) Plan Change to Apixaban 5 mg bid X approx 5 days then 2.5 mg bid CXR and BNP add on Wound care consult as inspection today is at least grade three Addendum BNP elevated but about same as before, CXR sig COPD, I will try 40 oral Lasix once (no IV presently) Also I phoned arcadio Black and with the Decub and the prior culture results (actually was polym icrobial not must MRSA) she needs wound care and IV abxs. I ordered a PICC line and spoke with Dr Thrasher he will see tomorrow and says OK to continue Apixaban and to order a Covid-19 screen. I will ordered Meropenem to start and when we have PICC in will add Vanco in place of Septr a Time spent [id number] with patient and/or delong unit time (of which more than 50% was in c ounseling and/or coordination the patient's care as outlined above) in minutes exceeded 45 m inutes. Addendum (02/10/2020 2:33 PM) I spoke with son about Dx and the 2 ultrasounds and risk of bleeding and not candidate for filter for arm DVT and risk of sig PE is less than with leg DVT and likely to increase need for PRBC and consideration for Pill cam outpatient (risk of getting stuck) and ordered PT OT and discussed her Sacral Decub and Septra Bruce Cochran MD 02/11/2020 1:[address] [facility] (dot meyaddendum tdnorefesh nownorefresh) (dot meytime meycritical meysign) Objective Data Serial weights: Filed Weights: 02/09/20 1836 02/10/20 0304 02/11/20 0540 Weight: 51.3 kg (113 lb) 52.7 kg (116 lb 1.6 oz) 49.2 kg (108 lb 6.4 oz) Most recent weight: Input and output 2 shifts and 3 shifts: Wt Readings from Last 1 Encounters: 02/11/20 49.2 kg (108 lb 6.4 oz) I/O last 24 Hours: In: 640 [P.O.:640] Out: 551 [Urine:551] I/O last 3 completed shifts: In: 640 [P.O.:640] Out: 551 [Urine:551] Vitals Ranges: Temp: [36.2 C (97.1 F)-36.4 C (97.5 F)] 36.2 C (97.1 F) Pulse: [83-96] 87 Resp: [18-24] 20 BP: (113-144)/(54-74) 144/74 Vitals: Temp: 36.2 C (97.1 F) BP: 144/74 Pulse: 87 Resp: 20 SpO2: 99 % SpO2 99 % on nasal cannula at flow rate 3L/min Diet and Supplements Diet Diet general; dysphagia mechanical; thin liquids allowed; sodium restricted 2 gm; 1800 ml fluid; Effective Now Number of Occurrences: Until Specified Order Comments: RED TRAY for good set up and intermittent supervision. 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 Thin liquids. Straws ok. Order Questions: Type Diet general Texture modifications dysphagia mechanical Fluid consistency modifications thin liquids allowed sodium restictions sodium restricted 2 gm fluid volume restictions 1800 ml fluid Nourishments Dietary nutrition supplements Boost; 1 Can Number of Occurrences: Until Specified Order Comments: With meals Order Questions: Supplement Boost Volume: 1 Can Reference. This is NOT part of the [...] Patient is improved today with resolution of symptom 24th Worse with recurrence of symptoms requiring further testing Portions of this chart may have been created with [employer] voice recognition software. Occasi onal wrong-word or sound-alike substitutions may have occurred due to the inherent owen itations of voice recognition software. Please read the chart carefully and recognize, using context, where these substitutions have occurred. Jose Saavedra PharmD - 02/11/2020 12:59 PM PDT . DOSE recommendation PER PHARMACY: apixaban Subjective/Objective: Ángela Crowley is a 89 y.o. year old female is receiving therapeutic enoxaparin for dv t. Blood pressure 144/74, pulse 87, temperature 36.2 C (97.1 F), temperature source Oral, resp. rate 20, weight 49.2 kg (108 lb 6.4 oz), SpO2 99 %, not currently . Estimated Creatinine Clearance: 38 mL/min (based on SCr of 0.78 mg/dL). Recent Labs Lab 02/11/20 0830 02/11/20 0243 02/10/20200102/10/20 0548 02/09/20 2217 CREA -- 0.78 -- -- 0.78 1.02 HGB 9.0* 9.3* 8.9* < > 8.8* 9.5* HCT 28.8* 29.4* 27.6* < > 27.0* 30.2* PLT 212 262 167 < > 223 218 INR -- -- -- -- 1.0 0.9 < > = values in this interval not displayed. Pt is > 80yo, < 60kg. Assessment/Plan: 1. To start apixaban, stop enoxaparin and start apixaban when next enoxaparin dose due. 2. Due to pt is >80yo, < 60kg, has been receiving parenteral anticoagulant for a line relat ed dvt, would recommend not prescribing the initial dvt treatment dose of 10mg bid, but inst ead start with the maintenance dose of dvt treatment: 5mg bid. 3. Pharmacist to evaluate patient daily for further dose adjustments Electronically signed by: Jose Riggs PharmD 02/11/2020 12:59 PM YAAajag, Tammy Orona PharmD - 02/10/2020 1:28 PM PDTDOSE recommendation PER PHARMACY: apixaban Subjective/Objective: Ángela Crowley is a 89 y.o. year old female is receiving therapeutic enoxaparin for dv t. Blood pressure 121/56, pulse 89, temperature 35.6 C (96 F), temperature source Axillary , resp. rate 19, weight 52.7 kg (116 lb 1.6 oz), SpO2 92 %, not currently . Estimated Creatinine Clearance: 41 mL/min (based on SCr of 0.78 mg/dL). Pt is > 80yo, < 60kg. Assessment/Plan: To start apixaban, stop enoxaparin and start apixaban when next enoxaparin dose due. Due to pt is >80yo, < 60kg, has been receiving parenteral anticoagulant for a line related dvt, would recommend not prescribing the initial dvt treatment dose of 10mg bid, but instead start with the maintenance dose of dvt treatment: 5mg bid. Pharmacist to evaluate patient daily for further dose adjustments Electronically signed by: Tammy Alaniz PharmD 02/10/2020 12:38 PM eyer, Jazz Justice D - 02/10/2020 11:33 AM PDT [place], [place] [facility]ITALIST PROGRESS NOTE Patient: Ángela Crowley : 1930: Age: 89 y.o. MedRec: [id number] PCP: Candido Link MD Admission date: 02/09/2020 Hospital day # : 0 Physician author: Bruce Cochran MD Today: 02/10/2020 Subjective Location, Severity, Quality, Context, Timing, Duration, Modifying factors, Associated signs & symptoms CC Sent home on February 09 returned that same day for left hand swelling worse when got home She is tired today Admits discomfort left arm Breathing "better" ROS See above Objective Exam General Tired lookikng Cardiac Reg Extremities left forearm is larger than right and the upper arm is not appreciable swollen Lung Rhonchi not labored Abdominal + BS soft NT Neuro awake tired (dot meyexam) (dot meyvent) Assessment and Hospital Course Document 1+: monitor, evaluate, assess or treat (dot meyprob vs meyprobap and possibly meyprior) Active Hospital Problems Diagnosis Arm DVT (deep venous thromboembolism), acute, left Iron deficiency anemia due to chronic blood loss Resolved Hospital Problems No resolved problems to display. Please also refer to the Admission note [...] x1 not to place or time. Passed COMBUSTION ANALYST evaluation with dysphagia diet ordered on 01/31 COVID 19 test negative on 01/30 CT head/chest/abd/pelvis identified small right pleural effusion with possible infection pr esent that can be possible pneumonia. No clear signs of acute abdominal infection. No acute intracranial abnormalities 02/06:mental status slowly improved, can feed self up to chair, pain improved/ 1U PRBC casey sfused 02/07: improved mental status, feeding self. Improved leukocytosis, improved Hgb -norco PRN for pain -delirium precautions -Increased lexaproup to 15mg this visit. 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 troponins stable, no chest pain during admission. 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 Repeat BNP 02/01 635 Changed lasix 20IV BID to 20 PO BID on 02/01, clinically euvolemic, lasix 20mg PO BID is mayela e dose, on 02/05 changed to lasix 20mg PO Daily,back to lasix 20mg PO BID on 02/06 -Continue lasix 20mg POBID -Continue coreg -Continue aspirin/statin -Trend I/Os, daily weights #Anemia, iron deficiency Iron Low, no sign of bleeding, likely chronic.On ferrous sulfate BID. Given 1U PRBC 02/06 w ith improvement to hgb 9.1. will monitor #Esophageal dysphagia #New diagnosis of achalasia Found to have significant dysphagia on COMBUSTION ANALYST evaluation. Will require upper GI workup per COMBUSTION ANALYST . Recommend reflux precautions and puree diet. [...] spasm likely related to achalasia. D/w Dr. [facility] and next step would be to perform manometry as outpatient for confirmation of bhavani lasia and to approach treatment as outpatient. -Continue dysphagia diet -f/u outpatient #malnutrition I attest that this clinical assessment using ASPEN criteria 1is accurate for this patient and supports that as a medical diagnosis.A specific nutrition treatment plan will be im [...] No DVT #FAITH, resolved #Hypernatremia, resolved DVT PPx:SCDs, held AC for anemia GI PPx: pepcid Diet: puree diet, 1800ml fluid restriction, Na 2gm Dispo:continue PT/OT. Will plan for home with home health with PT, Nurse aide, wheelchair , FWW, and wound care for sacral decub, plan for DC on 02/08 if able Goals of care: Palliative care consulted, appreciate recs. No hospice as per son. Continue full care. Acute left arm DVT on US February 08 left subclavain and axillary veins and left basilic vein No DVT seen on US done February 06 DVT related to prior IV IV access difficult so on Lovneox instead of heparin Admitter spoke with son about using eliquis (Hx of needing blood transfusions and one hospi aidee stay where it was started dropped HgB 2 points) and Hx of bruising on anticoagulation Fe Def Anemia with EGD and Colonoscopy 2018 no obvious source but possible she had AVMs 7th HgB 8.9 prior 8.8 prior 9.5 prior 9.1 (whe was 7.5 February 06) Recent Ferritin of 186 February 04 TAVR for PAF CAD Cath 2019 not show sig obstructive disease so ASA COPD Chronic decubitus sacral Leukocytosis Suspect due to stress of DVT Son Wayne 7th phone call he was [facility], is [address] Cochran (dot meyaddendum tdnorefesh nownorefresh) (myla malnutattest is attestation for malnutrition) (myla lastbmi[1) Plan Follow labs Probably start Eliquis tomorrow She may need intermittent transfusions while on anticoag Addendum (02/10/2020 2:33 PM) I spoke with son about Dx and the 2 ultrasounds and risk of bleeding and not candidate for filter for arm DVT and risk of sig PE is less than with leg DVT and likely to increase need for PRBC and consideration for Pill cam outpatient (risk of getting stuck) and ordered PT OT and discussed her Sacral Decub and Septra Son Time spent [id number] with patient and/or delong unit time (of which more than 50% was in c ounseling and/or coordination the patient's care as outlined above) in minutes exceeded 30 m inutes. Bruce Cochran MD 02/10/2020 11:[address] [facility] (dot meyaddendum tdnorefesh nownorefresh) (myla morganytlazaro meycritical meysign) Objective Data Serial weights: Filed Weights: 02/09/20 1836 02/10/20 0304 Weight: 51.3 kg (113 lb) 52.7 kg (116 lb 1.6 oz) Most recent weight: Input and output 2 shifts and 3 shifts: Wt Readings from Last 1 Encounters: 02/10/20 52.7 kg (116 lb 1.6 oz) No intake/output data recorded. No intake/output data recorded. Vitals Ranges: Temp: [36.1 C (96.9 F)-37.3 C (99.2 F)] 37.3 C (99.2 F) Pulse: [81-104] 94 Resp: [16-22] 20 BP: (91-154)/(56-78) 140/74 Vitals: Temp: 37.3 C (99.2 F) BP: 140/74 Pulse: 94 Resp: 20 SpO2: 96 % SpO2 96 % on nasal cannula at flow rate 3.5L/min Diet and Supplements Diet Diet general; dysphagia mechanical; thin liquids allowed; sodium restricted 2 gm; 1800 ml fluid; Effective Now Number of Occurrences: Until Specified Order Comments: RED TRAY for good set up and intermittent supervision. 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 Thin liquids. Straws ok. Order Questions: Type Diet general Texture modifications dysphagia mechanical Fluid consistency modifications thin liquids allowed sodium restictions sodium restricted 2 gm fluid volume restictions 1800 ml fluid Nourishments Dietary nutrition supplements Boost; 1 Can Number of Occurrences: Until Specified Order Comments: With meals Order Questions: Supplement Boost Volume: 1 Can Reference. This is NOT part of the [...] Patient is improved today with resolution of symptom th Worse with recurrence of symptoms requiring further testing Portions of this chart may have been created with [employer] voice recognition software. Occasi onal wrong-word or sound-alike substitutions may have occurred due to the inherent owen itations of voice recognition software. Please read the chart carefully and recognize, using context, where these substitutions have occurred. abrendan, Subha Mitchell - 02/10/2020 3:53 AM PDT RENAL DOSE ADJUSTMENT PER PHARMACY PROTOCOL: Subjective/Objective: Ángela Crowley is a 89 y.o. year old female admitted on 02/09/2020 6:29 PM and is recei ving FAMOTIDINE BP 130/62 | Pulse 87 | Temp 36.4 C (97.5 F) (Axillary) | Resp 16 | Wt 52.7 kg (116 lb 1.6 oz) | SpO2 100% | BMI 18.74 kg/m No intake or output data in the 24 hours ending 02/10/20 0346 Recent Labs Lab 02/09/20 2217 02/08/20 0609 02/07/20 0545 CREA 1.02 0.78 0.66 Estimated Creatinine Clearance: 31 mL/min (based on SCr of 1.02 mg/dL). Date Day of therapy Creatinine CrCl (mL/min) Dose-current Dose-new 02/10/20 1 1.02 31 40 mg q24hr 20 mg q24hr Assessment/Plan: For creatinine clearance 30-50 mL/min, decrease dose of FAMOTIDINE as above. Pharmacy will continue to follow and adjust dose as appropriate to clinical condition and c reatinine clearance changes RENAL DOSE ADJUSTMENT PROTOCOL Electronically signed by: Alessandra Méndez, PharmShruthi 02/10/2020 3:46 AM documented in this encounter Plan of Treatment +--------+ + + + + | Date | Type | Specialty | Care Team | Description | +--------+ + + + + | 03/23/ | Office | Anticoagulation | García Harris, | | 2019 | Visit | | [address] | | | | | | [place] | | | | | | [id number] | | | | | | | | +--------+ + + + + | 04/11/ | Appointment | Radiology | Shawn Stratton | | | 2019 | | | MD [address] | | | | | | [address] [place] | | | | | | [place] [address] | | | | | | [phone] | | | | | | | | +--------+ + + + + | 04/13/ | Office | Cardiology | Shawn Stratton | | | 2020 | Visit | | MD [address] | | | | | | [address] [place] | | | | | | [place] [address] | | | | | | [phone] | | | | | | | | +--------+ + + + + + +------+--------+ + + | Name | Type | Priori | Associated Diagnoses | Date/Time | | | | ty | | | + +------+--------+ + + | ED INFORMATION | MICHAEL | Routin | | 02/09/2020 6:26 PM | | EXCHANGE | | e | | PDT | + +------+--------+ + + + +------+--------+ + + | Name | Type | Priori | Associated Diagnoses | Order Schedule | | | | ty | | | + +------+--------+ + + | DME: Misc | DME | Routin | Pressure injury of | DME 1 Time for 1 | | alternating pressure | | e | sacral region, | Occurrences starting | | pad | | | stage 3 (HCC) | 02/23/2020 until | | | | | | 02/23/2020 | + +------+--------+ + + | DME: Misc roho seat | DME | Routin | Pressure injury of | DME 1 Time for 1 | | cushion | | e | sacral region, | Occurrences starting | | | | | stage 3 (HCC) | 02/23/2020 until | | | | | | 02/23/2020 | + +------+--------+ + + documented as [...] + + | COMPREHENSIVE | Routin | 02/24/2020 [...] + + | CORONAVIRUS | Routin | 02/22/2020 [...] + + | MAGNESIUM | Routin | 02/22/2020 [...] + + | MAGNESIUM | Routin | 02/21/2020 | | Results for this | | | e | 5:51 AM | | procedure are in the | | | | PDT | | results section. | + +--------+ + + + | COMPREHENSIVE | Routin | 02/21/2020 [...] + + | MAGNESIUM | Routin | 02/20/2020 | | Results for this | | | e | 5:47 AM | | procedure are in the | | | | PDT | | results section. | + +--------+ + + + | COMPREHENSIVE | Routin | 02/20/2020 [...] + + | MAGNESIUM | Routin | 02/19/2020 | | Results for this | | | e | 5:35 AM | | procedure are in the | | | | PDT | | results section. | + +--------+ + + + | COMPREHENSIVE | Routin | 02/19/2020 [...] + + | MAGNESIUM | Routin | 02/18/2020 | | Results for this | | | e | 6:23 AM | | procedure are in the | | | | PDT | | results section. | + +--------+ + + + | LIPASE | Add-On | 02/18/2020 | | Results for this | | | | 6:23 AM | | procedure are in the | | | | PDT | | results section. | + +--------+ + + + | HEPATIC FUNCTION | Add-On | [...] + + | MAGNESIUM | Routin | 02/17/2020 [...] + + + | ECHO COMPLETE | LAUREN | [...] + + | CBC NO DIFFERENTIAL | STAT [...] + + | CORONAVIRUS | Routin | 02/12/2020 [...] +--------+ + + + | CT CHEST WO CONTRAST | STAT | 02/09/2020 | | Results for this | | | | 11:01 PM | | procedure are in the | | | | PDT | | results section. | + +--------+ + + + | POCT OCCULT BLOOD | STAT [...] | + +--------+ + + + | PTT | STAT | 02/09/2020 [...] + + | COMPREHENSIVE | STAT | 02/09/2020 | | Results for this | | METABOLIC PANEL | | 10:17 PM | | procedure are in the | | | | PDT | | results section. | + +--------+ + + + | VAS UPPER EXTREMITY | STAT | 02/09/2020 | | Results for this | | VENOUS LEFT | | 8:05 PM | | procedure are in the | | | | PDT | | results section. | + +--------+ + + + documented in this encounter Results POC Glucose (02/24/2020 12:32 PM PDT) + +-------+ + + + | Component | Value | Ref Range | Performed | Pathologist | | | | | At | Signature | + +-------+ + + + | Glucose, | 75 | 70 - 109 mg/dL | [facility] [...] [address] | [place] | [phone] | | [facility] | | [address] | | | - LABORATORY | | | | + + + + + POC Glucose (02/24/2020 6:14 AM PDT) + +-------+ + + + [...] + | [facility] | [address] | [place] | [phone] | | [facility] | | [address] | | | - LABORATORY | | | | + + + + + Comprehensive Metabolic Panel (02/24/2020 5:28 AM PDT) + + + + + [...] + + + + | K | 4.5 | 3.4 - 5.1 | [facility] | [...] | 0.86 | 0.55 - 1.02 | [facility] | [...] mL/min/1.73m2 | [facility] | | | [facility] | RATE,ESTIMATED | | MEDICAL | | | | mL/min/[id number] than | | CENTER - | | [...] | 8.8 | 8.7 - 10.4 | [facility] | | | | | [...] + + + + | AST | 40 (H) | 0 - 34 U/L | [facility] | | | | | [facility] | | | | | | MEDICAL | | | | | | CENTER - | | | | | | LABORATORY | | + + + + + + | ALT | 68 (H) | 10 - 49 U/L | [facility] | | | [facility] | [facility] | | | | | | [facility] | | | | | | CENTER - | | | | | | LABORATORY | | + + + + + + | Alkaline | 87 | 46 - 116 U/L | [facility] [...] + + + + | BUN/Creatin | 31.4 | | [facility] | | | ine [...] [address] | [place] | [phone] | | [facility] | | [address] | | | - LABORATORY | | | | + + + + + C-Reactive Protein (02/24/2020 5:28 AM PDT) + + + + + + | Component | Value | Ref Range | Performed | Pathologist | | | | | At | Signature | + + + + + + | CRP | 26.90 (H) | <10.00 mg/L | [facility] | [...] + | [facility] | [address] | [place] | [phone] | | [facility] | | [address] | | | - LABORATORY | | | | + + + + + CBC with Differential (02/24/2020 5:28 AM PDT) + + + + + + | Component | Value | Ref Range | Performed | Pathologist | | | | | At | Signature | + + + + + + | WBC | 12.1 (H) | 4.0 - 11.0 K/uL | [facility] | | | | | | [facility] | | | | | | [facility]ICAL | | | | | | CENTER - | | | | | | LABORATORY | | + + + + + + | RBC | 3.03 (L) | 3.70 - 5.20 | [facility] | | | | | M/uL | [facility] | | | | | | MEDICAL | | | | | | CENTER - | | | | | | LABORATORY | | + + + + + + | Hemoglobin | 9.0 (L) | 11.5 - 16.0 | [facility] | | | | | g/dL | [facility] | | | | | | [facility] | | | | | | CENTER - | | | | | | LABORATORY | | + + + + + + | Hematocrit | 29.6 (L) | 34.0 - 47.0 % | [facility] | | | | | | [facility] | | | | | | [facility]ICAL | | | | | | CENTER - | | | | | | LABORATORY | | + + + + + + | MCV | 97.7 | 83.0 - 101.0 fL | [facility] [...] + + + + | RDW-CV | 17.1 (H) | <15.0 % | [facility] | | | | | [facility] | | | | | | [facility]ICAL | | | | | | CENTER - | | | | | | LABORATORY | | + + + + + + | RDW-SD | 61.1 (H) | 35.1 - 46.3 fL | [...] + + + + | % | 76.3 | 45.0 - 82.0 % | [facility] [...] + + + + | Absolute | 9.24 (H) | 1.80 - 8.50 | [facility] | | | Neutrophils | | K/uL | [facility] | | | | | | [facility]ICAL | | | | | | CENTER - | | | | | | LABORATORY | | + + + + + + | Absolute | 1.36 | 0.60 - 3.20 | [facility] | | | Lymphocytes | | K/uL | [facility] | | | | | | MEDICAL | | | | | | CENTER - | | | | | | LABORATORY | | + + + + + + | Absolute | 1.26 (H) | 0.00 - 1.00 | [facility] | | | Monocytes | | K/uL | [facility] | | | | | | [facility] | | | | | | CENTER - | | | | | | LABORATORY | | + + + + + + | Absolute | 0.16 | 0.00 - 0.40 | [facility] | | | Eosinophils | | K/uL | [facility] | | | | | | [facility] | | | | | | CENTER - | | | | | | LABORATORY | | + + + + + + | Absolute | 0.03 | 0.00 - 0.10 | [facility] | | | Basophils | | K/uL | [facility] | | [...] [address] | [place] | [phone] | | [facility] | | [address] | | | - LABORATORY | | | | + + + + + POC Glucose (02/23/2020 8:36 PM PDT) + +---------+ + + + | Component | Value | Ref Range | Performed | Pathologist | | | | | At | Signature | + +---------+ + + + | Glucose, | 147 (H) | 70 - 109 mg/dL | [...] [address] | [place] | [phone] | | [facility] | | [address] | | | - LABORATORY | | | | + + + + + POC Glucose (02/23/2020 4:23 PM PDT) + +---------+ + + + | Component | Value | Ref Range | Performed | Pathologist | | | | | At | Signature | + +---------+ + + + | Glucose, | 180 (H) | 70 - 109 mg/dL | [...] + | [facility] | [address] | [place] | [phone] | | [facility] | | [address] | | | - LABORATORY | | | | + + + + + POC Glucose (02/23/2020 11:39 AM PDT) + +---------+ + + + | Component | Value | Ref Range | Performed | Pathologist | | | | | At | Signature | + +---------+ + + + | Glucose, | 116 (H) | 70 - 109 mg/dL | [...] [address] | [place] | [phone] | | [facility] | | [address] | | | - LABORATORY | | | | + + + + + POC Glucose (02/23/2020 7:02 AM PDT) + +-------+ + + + | Component | Value | Ref Range | Performed | Pathologist | | | | | At | Signature | + +-------+ + + + | Glucose, | 86 | 70 - 109 mg/dL | [facility] [...] | [address] | [place] | [phone] | | [facility] | | [address] | | | - LABORATORY | | | | + + + + + Basic Metabolic Panel (02/23/2020 5:37 AM PDT) + + + + + [...] (H) | 9 - 23 mg/dL | [facility] | | | | | | [facility] | | | | | MEDICAL | | | | | | CENTER - | | | | | | LABORATORY | | + + + + + + | Creatinine | 0.88 | 0.55 - 1.02 | [facility] | | | | | mg/dL | [facility] | | | | | | MEDICAL | | | | | | CENTER - | | | | | | LABORATORY | | + + + + + + | eGFR if not | >60Comment: GLOMERULAR | >=60 | [facility] | | | | FILTRATION | mL/min/1.73m2 | [facility] | | | [place] | RATE,ESTIMATED | | MEDICAL | | | | mL/min/1.27d6Puyy than | | CENTER - | | [...] + + + + | BUN/Creatin | 35.2 | | [facility] | | | ine [...] + | [facility] | [address] | [place] | [phone] | | [facility] | | [address] | | | - LABORATORY | | | | + + + + + CBC no Differential (02/23/2020 5:37 AM PDT) + + + + + + | Component | Value | Ref Range | Performed | Pathologist | | | | | At | Signature | + + + + + + | WBC | 10.7 | 4.0 - 11.0 K/uL | [facility] [...] + + + + | MCV | 98.3 | 83.0 - 101.0 fL | [facility] | | | | | [facility] | | | | | | MEDICAL | | | | | | CENTER - | | | | | | LABORATORY | | + + + + + + | MCH | 30.6 | 28.0 - 35.0 pg | [facility] [...] + + + + | RDW-CV | 17.0 (H) | <15.0 % | [facility] | | | | | [facility] | | | | | | MEDICAL | | | | | | CENTER - | | | | | | LABORATORY | | + + + + + + | RDW-SD | 61.4 (H) | 35.1 - 46.3 fL | [facility] | | | | | [facility] | | | | | | MEDICAL | | | | | | CENTER - | | | | | | LABORATORY | | + + + + + + | Platelet | 179 | 140 - 440 K/uL | [facility] [...] [address] | [place] | [phone] | | [facility] | | [address] | | | - LABORATORY | | | | + + + + + POC Glucose (02/22/2020 9:57 PM PDT) + +---------+ + + + | Component | Value | Ref Range | Performed | Pathologist | | | | | At | Signature | + +---------+ + + + | Glucose, | 120 (H) | 70 - 109 mg/dL | [...] [address] | [place] | [phone] | | [facility] | | [address] | | | - LABORATORY | | | | + + + + + POC Glucose (02/22/2020 4:44 PM PDT) + +---------+ + + + | Component | Value | Ref Range | Performed | Pathologist | | | | | At | Signature | + +---------+ + + + | Glucose, | 133 (H) | 70 - 109 mg/dL | [...] [address] | [place] | [phone] | | [facility] | | [address] | | | - LABORATORY | | | | + + + + + POC Glucose (02/22/2020 11:53 AM PDT) + +---------+ + + + | Component | Value | Ref Range | Performed | Pathologist | | | | | At | Signature | + +---------+ + + + | Glucose, | 192 (H) | 70 - 109 mg/dL | [...] [address] | [place] | [phone] | | [facility] | | [address] | | | - LABORATORY | | | | + + + + + [facility] STAT instructions for COVID-19 tracking (02/22/2020 10:45 AM PDT) + +-------+ + + + [...] + Coronavirus (COVID-19) NAAT (02/22/2020 10:45 AM PDT) + + + + + [...] + + + | See scanned | [facility] | | report | | + + + + +---------+ + + | Performing | Address | City/State/Zipcode | Phone Number | | Organization | | | | + +---------+ + + | [facility] | | | | + +---------+ + + POC Glucose (02/22/2020 6:32 AM PDT) + +-------+ + + + | Component | Value | Ref Range | Performed | Pathologist | | | | | At | Signature | + +-------+ + + + | Glucose, | 91 | 70 - 109 mg/dL | [facility] [...] [address] | [place] | [phone] | | [facility] | | [address] | | | - LABORATORY | | | | + + + + + CBC no Differential (02/22/2020 6:03 AM PDT) + + + + + [...] + + + + | RBC | 2.96 (L) | 3.70 - 5.20 | [facility] [...] + + + + | MCH | 30.7 | 28.0 - 35.0 pg | [facility] [...] + + + + | RDW-CV | 17.2 (H) | <15.0 % | [facility] | | | | | | [facility] | | | | | | MEDICAL | | | | | | CENTER - | | | | | | LABORATORY | | + + + + + + | RDW-SD | 62.4 (H) | 35.1 - 46.3 fL | [facility] | | | | | | [facility] | | | | | | MEDICAL | | | | | | CENTER - | | | | | | LABORATORY | | + + + + + + | Platelet | 181 | 140 - 440 K/uL | [facility] | | | Count | | | [facility] | | | | | | MEDICAL | | | | | | CENTER - | | | | | | LABORATORY | | + + + + + + | MPV | 10.5 | 6.5 - 12.4 fL | [facility] [...] [address] | [place] | [phone] | | [facility] | | [address] | | | - LABORATORY | | | | + + + + + Basic Metabolic Panel (02/22/2020 6:02 AM PDT) + + + + + [...] + + + + | K | 4.5 | 3.4 - 5.1 | [facility] | [...] + + + + | Creatinine | 0.96 | 0.55 - 1.02 | [facility] | | | | | mg/dL | [facility] | | | | | | MEDICAL | | | | | | CENTER - | | | | | | LABORATORY | | + + + + + + | eGFR if not | 55 (L)Comment: | >=60 | [facility] | | | | GLOMERULAR FILTRATION | mL/min/1.73m2 | [facility] | | | [place] | RATE,ESTIMATED | | MEDICAL | | | | mL/min/1.99z7Slyv than | | CENTER - | | [...] + + + + | BUN/Creatin | 30.2 | | [facility] | | | ine [...] [address] | [place] | [phone] | | [facility] | | [address] | | | - LABORATORY | | | | + + + + + Magnesium (02/22/2020 6:02 AM PDT) + +-------+ + + + | Component | Value | Ref Range | Performed | Pathologist | | | | | At | Signature | + +-------+ + + + | Magnesium | 2.2 | 1.6 - 2.6 mg/dL | [facility] [...] [address] | [place] | [phone] | | [facility] | | [address] | | | - LABORATORY | | | | + + + + + POC Glucose (02/21/2020 9:20 PM PDT) + +---------+ + + + | Component | Value | Ref Range | Performed | Pathologist | | | | | At | Signature | + +---------+ + + + | Glucose, | 231 (H) | 70 - 109 mg/dL | [...] + | [facility] | [address] | [place] | [phone] | | [facility] | | [address] | | | - LABORATORY | | | | + + + + + POC Glucose (02/21/2020 4:28 PM PDT) + +---------+ + + + | Component | Value | Ref Range | Performed | Pathologist | | | | | At | Signature | + +---------+ + + + | Glucose, | 223 (H) | 70 - 109 mg/dL | [...] [address] | [place] | [phone] | | [facility] | | [address] | | | - LABORATORY | | | | + + + + + POC Glucose (02/21/2020 11:34 AM PDT) + +---------+ + + + | Component | Value | Ref Range | Performed | Pathologist | | | | | At | Signature | + +---------+ + + + | Glucose, | 141 (H) | 70 - 109 mg/dL | [...] [address] | [place] | [phone] | | [facility] | | [address] | | | - LABORATORY | | | | + + + + + POC Glucose (02/21/2020 6:31 AM PDT) + +-------+ + + + [...] [address] | [place] | [phone] | | [facility] | | [address] | | | - LABORATORY | | | | + + + + + B Type Natriuretic Peptide (02/21/2020 5:51 AM PDT) + + + + + + | Component | Value | Ref Range | Performed | Pathologist | | | | | At | Signature | + + + + + + | BNP | 360 (H)Comment: New | <100 pg/mL | [facility] | | | | method in use as of | | [facility] | | | | December 02, 2018. [...] | [address] | [place], [place] | [phone] | | [facility] | | [address] | | | - LABORATORY | | | | + + + + + CBC no Differential (02/21/2020 5:51 AM PDT) + + + + + + | Component | Value | Ref Range | Performed | Pathologist | | | | | At | Signature | + + + + + + | WBC | 13.7 (H) | 4.0 - 11.0 K/uL | [...] + + + + | RDW-CV | 17.2 (H) | <15.0 % | [facility] | | | | | [facility] | | | | | | MEDICAL | | | | | | CENTER - | | | | | | LABORATORY | | + + + + + + | RDW-SD | 61.1 (H) | 35.1 - 46.3 fL | [...] [address] | [place] | [phone] | | [facility] | | [address] | | | - LABORATORY | | | | + + + + + Magnesium (02/21/2020 5:51 AM PDT) + +-------+ + + + | Component | Value | Ref Range | Performed | Pathologist | | | | | At | Signature | + +-------+ + + + | Magnesium | 2.3 | 1.6 - 2.6 mg/dL | [facility] [...] + | [facility] | [address] | [place] | [phone] | | [facility] | | [address] | | | - LABORATORY | | | | + + + + + Comprehensive Metabolic Panel (02/21/2020 5:51 AM PDT) + + + + + [...] + + + + | K | 4.3 | 3.4 - 5.1 | [facility] | | | | | mmol/L | [facility] | | | | | | MEDICAL | | | | | | CENTER - | | | | | | LABORATORY | | + + + + + + | Cl | 103 | 98 - 107 mmol/L | [facility] [...] (H) | 9 - 23 mg/dL | [facility] | | | | | | [facility] | | | | | | MEDICAL | | | | | | CENTER - | | | | | | LABORATORY | | + + + + + + | Creatinine | 0.96 | 0.55 - 1.02 | [facility] | | | | | mg/dL | [facility] | | | | | | MEDICAL | | | | | | CENTER - | | | | | | LABORATORY | | + + + + + + | eGFR if not | 55 (L)Comment: | >=60 | [facility] | | | | GLOMERULAR FILTRATION | mL/min/1.73m2 | [facility] | | | [place] | RATE,ESTIMATED | | MEDICAL | | | | mL/min/1.60t2Kjle than | | CENTER - | | [...] (L) | 3.2 - 4.8 g/dL | [facility] | | | | | | [facility] | | | | | [...] + + + + | AST | 33 | 0 - 34 U/L | [facility] | | | | | [facility] | | | | | | MEDICAL | | | | | | CENTER - | | | | | | LABORATORY | | + + + + + + | ALT | 58 (H) | 10 - 49 U/L | [...] + + + + | BUN/Creatin | 32.3 | | [facility] | | | ine [...] [address] | [place] | [phone] | | [facility] | | [address] | | | - LABORATORY | | | | + + + + + POC Glucose (02/20/2020 9:57 PM PDT) + +-------+ + + + | Component | Value | Ref Range | Performed | Pathologist | | | | | At | Signature | + +-------+ + + + | Glucose, | 76 | 70 - 109 mg/dL | [facility] [...] [address] | [place] | [phone] | | [facility] | | [address] | | | - LABORATORY | | | | + + + + + POC Glucose (02/20/2020 5:02 PM PDT) + +---------+ + + + | Component | Value | Ref Range | Performed | Pathologist | | | | | At | Signature | + +---------+ + + + | Glucose, | 266 (H) | 70 - 109 mg/dL | [...] [address] | [place] | [phone] | | [facility] | | [address] | | | - LABORATORY | | | | + + + + + POC Glucose (02/20/2020 11:35 AM PDT) + +---------+ + + + | Component | Value | Ref Range | Performed | Pathologist | | | | | At | Signature | + +---------+ + + + | Glucose, | 124 (H) | 70 - 109 mg/dL | [...] + | [facility] | [address] | [place] | [phone] | | [facility] | | [address] | | | - LABORATORY | | | | + + + + + Culture, Blood (02/20/2020 8:19 AM PDT) + + + + + [...] [address] | [place] | [phone] | | [facility] | | [address] | | | - LABORATORY | | | | + + + + + Culture, Blood (02/20/2020 6:28 AM PDT) + + + + + + | Component | Value | Ref Range | Performed | Pathologist | | | | | At | Signature | + + + + + + | Culture | No growth after 5 days | | [facility] | | | | incubation. | | [...] [address] | [place] | [phone] | | [facility] | | [address] | | | - LABORATORY | | | | + + + + + POC Glucose (02/20/2020 6:27 AM PDT) + +-------+ + + + | Component | Value | Ref Range | Performed | Pathologist | | | | | At | Signature | + +-------+ + + + | Glucose, | 86 | 70 - 109 mg/dL | [facility] | | | POC | | | [facility] | | | | | [...] | + + + + + | [facility] | [address] | [place] | [phone] | | [facility] | | [address] | | | - LABORATORY | | | | + + + + + B Type Natriuretic Peptide (02/20/2020 5:47 AM PDT) + + + + + + | Component | Value | Ref Range | Performed | Pathologist | | | | | At | Signature | + + + + + + | BNP | 301 (H)Comment: New | <100 pg/mL | [facility] | | | | method in use as of | | [facility] | | | | December 02, [...] [address] | [place] | [phone] | | [facility] | | [address] | | | - LABORATORY | | | | + + + + + CBC no Differential (02/20/2020 5:47 AM PDT) + + + + + + | Component | Value | Ref Range | Performed | Pathologist | | | | | At | Signature | + + + + + + | WBC | 14.0 (H) | 4.0 - 11.0 K/uL | [...] + + + + | Hemoglobin | 9.0 (L) | 11.5 - 16.0 | [facility] [...] + + + + | RDW-CV | 17.2 (H) | <15.0 % | [facility] | [...] [address] | [place] | [phone] | | [facility] | | [address] | | | - LABORATORY | | | | + + + + + Magnesium (02/20/2020 5:47 AM PDT) + +-------+ + + + | Component | Value | Ref Range | Performed | Pathologist | | | | | At | Signature | + +-------+ + + + | Magnesium | 2.3 | 1.6 - 2.6 mg/dL | [facility] [...] [address] | [place] | [phone] | | [facility] | | [address] | | | - LABORATORY | | | | + + + + + Comprehensive Metabolic Panel (02/20/2020 5:47 AM PDT) + + + + + [...] + + + + | K | 4.7 | 3.4 - 5.1 | [facility] | [...] | 0.93 | 0.55 - 1.02 | [facility] | | | | | mg/dL | [facility] | | | | | | MEDICAL | | | | | | CENTER - | | | | | | LABORATORY | | + + + + + + | eGFR if not | 57 (L)Comment: | >=60 | [facility] | | | | GLOMERULAR FILTRATION | mL/min/1.73m2 | [facility] | | | [place] | RATE,ESTIMATED | | MEDICAL | | | | mL/min/1.02t6Jite than | | CENTER - | | [...] + + + + | Albumin | 2.8 (L) | 3.2 - 4.8 g/dL | [...] + + + + | AST | 34 | 0 - 34 U/L | [facility] | | | | | | [facility] | | | | | | MEDICAL | | | | | | CENTER - | | | | | | LABORATORY | | + + + + + + | ALT | 53 (H) | 10 - 49 U/L | [...] + + + + | Albumin/Sarika | 1.3 [...] [address] | [address] | [place] | [phone] | | [facility] | | [address] | | | - LABORATORY | | | | + + + + + POC Glucose (02/19/2020 8:06 PM PDT) + +---------+ + + + | Component | Value | Ref Range | Performed | Pathologist | | | | | At | Signature | + +---------+ + + + | Glucose, | 228 (H) | 70 - 109 mg/dL | [...] [address] | [place] | [phone] | | [facility] | | [address] | | | - LABORATORY | | | | + + + + + POC Glucose (02/19/2020 4:19 PM PDT) + +---------+ + + + [...] [address] | [place] | [phone] | | [facility] | | [address] | | | - LABORATORY | | | | + + + + + POC Glucose (02/19/2020 11:20 AM PDT) + +---------+ + + + | Component | Value | Ref Range | Performed | Pathologist | | | | | At | Signature | + +---------+ + + + | Glucose, | 216 (H) | 70 - 109 mg/dL | [...] + | [facility] | [address] | [place] | [phone] | | [facility] | | [address] | | | - LABORATORY | | | | + + + + + POC Glucose (02/19/2020 6:11 AM PDT) + +-------+ + + + | Component | Value | Ref Range | Performed | Pathologist | | | | | At | Signature | + +-------+ + + + | Glucose, | 91 | 70 - 109 mg/dL | [facility] [...] [address] | [place] | [phone] | | [facility] | | [address] | | | - LABORATORY | | | | + + + + + B Type Natriuretic Peptide (02/19/2020 5:35 AM PDT) + + + + + + | Component | Value | Ref Range | Performed | Pathologist | | | | | At | Signature | + + + + + + | BNP | 405 (H)Comment: New | <100 pg/mL | [facility] | | | | method [facility] use as of | | [facility] | | | | December [...] + | [facility] | [address] | [place] | [phone] | | [facility] | | [address] | | | - LABORATORY | | | | + + + + + CBC no Differential (02/19/2020 5:35 AM PDT) + + + + + [...] + + + + | MCV | 96.5 | 83.0 - 101.0 fL | [facility] [...] + + + + | RDW-CV | 17.2 (H) | <15.0 % | [facility] | | | | | | [facility] | | | | | | MEDICAL | | | | | | CENTER - | | | | | | LABORATORY | | + + + + + + | RDW-SD | 60.1 (H) | 35.1 - 46.3 fL | [facility] | | | | | | [facility] | | | | | | MEDICAL | | | | | | CENTER - | | | | | | LABORATORY | | + + + + + + | Platelet | 217 | 140 - 440 K/uL | [facility] [...] | nRBC | | K/uL | [facility] | | | | | [...] [address] | [place] | [phone] | | [facility] | | [address] | | | - LABORATORY | | | | + + + + + Comprehensive Metabolic Panel (02/19/2020 5:35 AM PDT) + + + + + [...] + + + + | K | 4.7 | 3.4 - 5.1 | [facility] | [...] + + + + | BUN | 30 (H) | 9 - 23 mg/dL | [facility] | | [facility] | [facility] | | | | | | MEDICAL | | | | | | CENTER - | | | | | | LABORATORY | | + + + + + + | Creatinine | 0.93 | 0.55 - 1.02 | [facility] | | | | | mg/dL | [facility] | | | | | | MEDICAL | | | | | | CENTER - | | | | | | LABORATORY | | + + + + + + | eGFR if not | 57 (L)Comment: | >=60 | [facility] | | | | GLOMERULAR FILTRATION | mL/min/1.73m2 | [facility] | | | [place] | RATE,ESTIMATED | | MEDICAL | | | | mL/min/1.64o4Dpby than | | CENTER - | | [...] | | Total | | | [facility] | | | | | | MEDICAL | | | | | | CENTER - | | | | | | LABORATORY | | + + + + + + | Total | 5.0 (L) | 5.7 - 8.2 g/dL | [facility] | | | Protein | | | [facility] | | | | | | MEDICAL | | | | | | CENTER - | | | | | | LABORATORY | | + + + + + + | AST | 38 (H) | 0 - 34 U/L | [facility] | | | | | | [facility] | | | | | | MEDICAL | | | | | | CENTER - | | | | | | LABORATORY | | + + + + + + | ALT | 61 (H) | 10 - 49 U/L | [facility] | | | | | | [facility] | | | | | | MEDICAL | | | | | | CENTER - | | | | | | LABORATORY | | + + + + + + | Alkaline | 82 | 46 - 116 U/L | [facility] [...] + + + + | BUN/Creatin | 32.3 | | [facility] | | | ine [...] [address] | [place] | [phone] | | [facility] | | [address] | | | - LABORATORY | | | | + + + + + Magnesium (02/19/2020 5:35 AM PDT) + +-------+ + + + | Component | Value | Ref Range | Performed | Pathologist | | | | | At | Signature | + +-------+ + + + | Magnesium | 2.2 | 1.6 - 2.6 mg/dL | [facility] | | | | [...] [address] | [place] | [phone] | | [facility] | | [address] | | | - LABORATORY | | | | + + + + + POC Glucose (02/18/2020 8:56 PM PDT) + +---------+ + + + | Component | Value | Ref Range | Performed | Pathologist | | | | | At | Signature | + +---------+ + + + | Glucose, | 143 (H) | 70 - 109 mg/dL | [...] [address] | [place] | [phone] | | [facility] | | [address] | | | - LABORATORY | | | | + + + + + POC Glucose (02/18/2020 5:05 PM PDT) + +---------+ + + + [...] + + + + + | [facility] | [address] | [place], [place] | [phone] | | [facility] | | [address] | | | - LABORATORY | | | | + + + + + POC Glucose (02/18/2020 11:54 AM PDT) + +-------+ + + + | Component | Value | Ref Range | Performed | Pathologist | | | | | At | Signature | + +-------+ + + + | Glucose, | 108 | 70 - 109 mg/dL | [facility] [...] [address] | [place] | [phone] | | [facility] | | [address] | | | - LABORATORY | | | | + + + + + POC Glucose (02/18/2020 6:57 AM PDT) + +-------+ + + + | Component | Value | Ref Range | Performed | Pathologist | | | | | At | Signature | + +-------+ + + + | Glucose, | 103 | 70 - 109 mg/dL | [facility] [...] [address] | [place] | [phone] | | [facility] | | [address] | | | - LABORATORY | | [...] | Direct | | mg/dl | [facility] | | | | [...] + | [facility] | [address] | [place] | [phone] | | [facility] | | [address] | | | - LABORATORY | | | | + + + + + Lipase (02/18/2020 6:23 AM PDT) + + + + + + | Component | Value | Ref Range | Performed | Pathologist | | | | | At | Signature | + + + + + + | Lipase | 44Comment: New method in | 12 - 53 U/L | [facility] | | | | use as of December 02, | | [facility] | | | | [facility]. Check [...] [address] | [place] | [phone] | | [facility] | | [address] | | | - LABORATORY | | | | + + + + + B Type Natriuretic Peptide (02/18/2020 6:23 AM PDT) + + + + + + | Component | Value | Ref Range | Performed | Pathologist | | | | | At | Signature | + + + + + + | BNP | 1,058 (H)Comment: New | <100 pg/mL | [facility] | | | | method in use as of | | [facility] | | | | December [...] [address] | [place] | [phone] | | [facility] | | [address] | | | - LABORATORY | | | | + + + + + CBC no Differential (02/18/2020 6:23 AM PDT) + + + + + + | Component | Value | Ref Range | Performed | Pathologist | | | | | At | Signature | + + + + + + | WBC | 13.1 (H) | 4.0 - 11.0 K/uL | [facility] | | | | | | [facility] | | | | | | MEDICAL | | | | | | CENTER - | | | | | | LABORATORY | | + + + + + + | RBC | 3.41 (L) | 3.70 - 5.20 | [facility] | | | | | M/uL | [facility] | | | | | | MEDICAL | | | | | | CENTER - | | | | | | LABORATORY | | + + + + + + | Hemoglobin | 10.2 (L) | 11.5 - 16.0 | [facility] [...] + + + + | MCHC | 31.9 (L) | 32.0 - 36.0 | [facility] | | | | | g/dL | [facility] | | | | | | MEDICAL | | | | | | CENTER - | | | | | | LABORATORY | | + + + + + + | RDW-CV | 16.9 (H) | <15.0 % | [facility] | | | | | | [facility] | | | | | | MEDICAL | | | | | | CENTER - | | | | | | LABORATORY | | + + + + + + | RDW-SD | 57.7 (H) | 35.1 - 46.3 fL | [facility] | | | | | | [facility] | | | | | | MEDICAL | | | | | | CENTER - | | | | | | LABORATORY | | + + + + + + | Platelet | 210 | 140 - 440 K/uL | [facility] [...] | nRBC | | K/uL | [facility] | | | | | [...] [address] | [place] | [phone] | | [facility] | | [address] | | | - LABORATORY | | | | + + + + + Basic Metabolic Panel (02/18/2020 6:23 AM PDT) + + + + + + | Component | Value | Ref Range | Performed | Pathologist | | | | | At | Signature | + + + + + + | Na | 138 | 136 - 145 | [facility] | [...] + + + + | Cl | 99 | 98 - 107 mmol/L | [facility] [...] + + + + | Glucose | 83 | 60 - 106 mg/dL | [facility] | | | | | | [facility] | | | | | | C[facility] - | | | | | | LABORATORY | | + + + + + + | BUN | 26 (H) | 9 - 23 mg/dL | [facility] | | | | | | [facility] | | | | | | MEDICAL | | | | | | CENTER - | | | | | | LABORATORY | | + + + + + + | Creatinine | 0.78 | 0.55 - 1.02 | [facility] | | | | | mg/dL | [facility] | | | | | | MEDICAL | | | | | | CENTER - | | | | | | LABORATORY | | + + + + + + | eGFR if not | >60Comment: GLOMERULAR | >=60 | [facility] | | | | FILTRATION | mL/min/1.73m2 | [facility] | | | NIUEAN | RATE,ESTIMATED | | MEDICAL | | | | mL/min/1.86p8Jijl than | | CENTER - | | [...] + | [facility] | [address] | [place] | [phone] | | [facility] | | [address] | | | - LABORATORY | | | | + + + + + Magnesium (02/18/2020 6:23 AM PDT) + +-------+ + + + [...] [address] | [place] | [phone] | | [facility] | | [address] | | | - LABORATORY | | | | + + + + + POC Glucose (02/17/2020 8:29 PM PDT) + +---------+ + + + | Component | Value | Ref Range | Performed | Pathologist | | | | | At | Signature | + +---------+ + + + | Glucose, | 205 (H) | 70 - 109 mg/dL | [...] [address] | [place] | [phone] | | [facility] | | [address] | | | - LABORATORY | | | | + + + + + Hemoglobin and Hematocrit (02/17/2020 6:17 PM PDT) + + + + + [...] [address] | [place] | [phone] | | [facility] | | [address] | | | - LABORATORY | | | | + + + + + POC Glucose (02/17/2020 4:49 PM PDT) + +---------+ + + + | Component | Value | Ref Range | Performed | Pathologist | | | | | At | Signature | + +---------+ + + + | Glucose, | 176 (H) | 70 - 109 mg/dL | [...] + | [facility] | [address] | [place] | [phone] | | [facility] | | [address] | | | - LABORATORY | | | | + + + + + XR Chest AP Portable (02/17/2020 1:35 PM PDT) + + | Specimen | + + | | + + + + + | Impressions | Performed At | + + + | 1. MILD PROMINENCE OF THE PULMONARY VASCULATURE AND PULMONARY | [facility] | | HYPERINFLATION. Dictated and Signed by: Sivakumar Ramon MD | | | Electronically signed: 02/17/2020 1:56 PM | | + + + + + + | Narrative | Performed At | + + + | SINGLE AP CHEST 02/17/2020 1:35 PM CLINICAL HISTORY: shortness | [facility] | | of breath COMPARISON: Radiographs February 13 and more remote imaging | | | FINDINGS: Aortic tortuosity is again evident. An aortic valve | | | prosthesis is again apparent. The cardiomediastinal silhouette is | | | otherwise unremarkable. The pulmonary vasculature is mildly | | | prominent. A tiny nodular density in the right mid lung corresponds | | | with one of numerous clustered nodules described on previous CT from | | | February 08. The lungs again appear somewhat hyperinflated but otherwise | | | clear without pneumothorax or visible pleural effusion. Osteopenia | | | is suggested. There is multilevel spondylosis. | | + + + + + | Procedure Note | + + | Kobe, Rad Results In - 02/17/2020 1:59 PM PDT SINGLE AP CHEST 02/17/2020 1:35 PM | | | | CLINICAL HISTORY: shortness of breath | | | | COMPARISON: Radiographs February 13 and more remote imaging | | | | FINDINGS: Aortic tortuosity is again evident. An aortic valve prosthesis is | | again apparent. The cardiomediastinal silhouette is otherwise unremarkable. | | The pulmonary vasculature is mildly prominent. A tiny nodular density in the | | right mid lung corresponds with one of numerous clustered nodules described on | | previous CT from February 08. The lungs again appear somewhat hyperinflated but | | otherwise clear without pneumothorax or visible pleural effusion. Osteopenia is | | suggested. There is multilevel spondylosis. | | | | IMPRESSION: | | | | 1. MILD PROMINENCE OF THE PULMONARY VASCULATURE AND PULMONARY HYPERINFLATION. | | | | Dictated and Signed by: Sivakumar Ramon MD | | Electronically signed: 02/17/2020 1:56 PM | + + + +---------+ + + | Performing | Address | City/State/Zipcode | Phone Number | | Organization | | | | + +---------+ + + | [facility] | | | | + +---------+ + + POC Glucose (02/17/2020 11:55 AM PDT) + +---------+ + + + | Component | Value | Ref Range | Performed | Pathologist | | | | | At | Signature | + +---------+ + + + | Glucose, | 168 (H) | 70 - 109 mg/dL | [facility] | | | POC | | | [facility] | | | | | [...] + | [facility] | [address] | [place] | [phone] | | [facility] | | [address] | | | - LABORATORY | | | | + + + + + Red Blood Cells (PRBC) - Crossmatch (02/17/2020 11:37 AM PDT) + + + + + + | Component | Value | Ref Range | Performed | Pathologist | | | | | At | Signature | + + + + + + | Product | [id number] | | [facility] | | | Code | | | [facility] | | | | | | [facility]ICAL | | | | | | CENTER - | | | | | | BLOOD BANK | | + + + + + + | UNIT # | [id number] | | [facility] | | | | [...] + + + + | Blood | [id number] | | [facility] | | | Product [...] + | [facility] | [address] | [place] | | | [facility] | | [address] | | | - BLOOD BANK | | | | + + + + + POC Glucose (02/17/2020 6:45 AM PDT) + +-------+ + + + [...] [address] | [place] | [phone] | | [facility] | | [address] | | | - LABORATORY | | | | + + + + + Type and Screen (02/17/2020 6:35 AM PDT) + + + + + + | Component | Value | Ref Range | Performed | Pathologist | | | | | At | Signature | + + + + + + | ABO | A | | [facility] | | | | | [...] [address] | [place] | | | [facility] | | [address] | | | - BLOOD BANK | | | | + + + + + B Type Natriuretic Peptide (02/17/2020 5:44 AM PDT) + + + + + + | Component | Value | Ref Range | Performed | Pathologist | | | | | At | Signature | + + + + + + | BNP | 526 (H)Comment: New | <100 pg/mL | [facility] [...] | [address] | [place] | [phone] | | [facility] | | [address] | | | - LABORATORY | | | | + + + + + CBC no Differential (02/17/2020 5:44 AM PDT) + + + + + + | Component | Value | Ref Range | Performed | Pathologist | | | | | At | Signature | + + + + + + | WBC | 12.1 (H) | 4.0 - 11.0 K/uL | [facility] | | | | | | [facility] | | | | | | [facility] | | | | | | CENTER - | | | | | | LABORATORY | | + + + + + + | RBC | 2.65 (L) | 3.70 - 5.20 | [facility] [...] | | | | g/dL | [facility] | | | | | | MEDICAL | | | | | | CENTER - | | | | | | LABORATORY | | + + + + + + | RDW-CV | 17.4 (H) | <15.0 % | [facility] | | | | | | [facility] | | | | | | MEDICAL | | | | | | CENTER - | | | | | | LABORATORY | | + + + + + + | RDW-SD | 59.2 (H) | 35.1 - 46.3 fL | [...] | nRBC | | K/uL | [facility] | | | | | [...] [address] | [place] | [phone] | | [facility] | | [address] | | | - LABORATORY | | | | + + + + + Basic Metabolic Panel (02/17/2020 5:44 AM PDT) + + + + + + | Component | Value | Ref Range | Performed | Pathologist | | | | | At | Signature | + + + + + + | Na | 137 | 136 - 145 | [facility] | [...] + + + + | Glucose | 83 | 60 - 106 mg/dL | [facility] | | | | | | [facility] | | | | | | MEDICAL | | | | | | CENTER - | | | | | | LABORATORY | | + + + + + + | BUN | 25 (H) | 9 - 23 mg/dL | [facility] | | | | | | [facility] | | | | | | MEDICAL | | | | | | CENTER - | | | | | | LABORATORY | | + + + + + + | Creatinine | 0.80 | 0.55 - 1.02 | [facility] | | | | | mg/dL | [facility] | | | | | | MEDICAL | | | | | | CENTER - | | | | | | LABORATORY | | + + + + + + | eGFR if not | >60Comment: GLOMERULAR | >=60 | [facility] | | | | FILTRATION | mL/min/1.73m2 | [facility] | | | [place] | RATE,ESTIMATED | | MEDICAL | | | | mL/min/1.51g9Eotb than | | CENTER - | | [...] + + + + | BUN/Creatin | 31.3 | | [facility] | | | ine [...] + | [facility] | [address] | [place] | [phone] | | [facility] | | [address] | | | - LABORATORY | | | | + + + + + Magnesium (02/17/2020 5:44 AM PDT) + +-------+ + + + | Component | Value | Ref Range | Performed | Pathologist | | | | | At | Signature | + +-------+ + + + | Magnesium | 1.9 | 1.6 - 2.6 mg/dL | [facility] | | | | | [...] [address] | [place] | [phone] | | [facility] | | [address] | | | - LABORATORY | | | | + + + + + POC Glucose (02/16/2020 8:50 PM PDT) + +---------+ + + + | Component | Value | Ref Range | Performed | Pathologist | | | | | At | Signature | + +---------+ + + + | Glucose, | 219 (H) | 70 - 109 mg/dL | [...] [address] | [place] | [phone] | | [facility] | | [address] | | | - LABORATORY | | | | + + + + + POC Glucose (02/16/2020 4:37 PM PDT) + +---------+ + + + | Component | Value | Ref Range | Performed | Pathologist | | | | | At | Signature | + +---------+ + + + | Glucose, | 189 (H) | 70 - 109 mg/dL | [...] | [address] | [place], [place] | [phone] | | [facility] | | [address] | | | - LABORATORY | | | | + + + + + Culture, Anaerobic (02/16/2020 1:37 PM PDT) + + + + + + | Component | Value | Ref Range | Performed | Pathologist | | | | | At | Signature | + + + + + + | Culture | 1+ Bacteroides | | [facility] | | | | ovatusComment: | | [facility] | | | | Beta-lactamase | | [...] [address] | [place] | [phone] | | [facility] | | [address] | | | - LABORATORY | | | | + + + + + Culture, Wound, Smear (02/16/2020 1:37 PM PDT) + + + + + + | Component | Value | Ref Range | Performed | Pathologist | | | | | At | Signature | + + + + + + | Culture | 4+ Enterococcus | | [facility] | | | | faecalisComment: | | [facility] | | | | Combination therapy of [...] + + + | Culture | 4+ Timbo albicans | | [facility] | | | | | | [facility] | | | | | | MEDICAL | | | | | | CENTER - | | | | | | LABORATORY | | + + + + + + | Gram Stain | No white blood cells | | [facility] | | | Result | (PMNs) seen | | [facility] | | | | | | MEDICAL | | | | | | CENTER - | | | | | | LABORATORY | | + + + + + + | Gram Stain | 2+ Yeast with | | [facility] | | | Result | pseudohyphae | | [facility] | | | [...] [address] | [place] | [phone] | | [facility] | | [address] | | | - LABORATORY | | | | + + + + + Hemoglobin and Hematocrit (02/16/2020 12:02 PM PDT) + + + + + [...] [address] | [place] | [phone] | | [facility] | | [address] | | | - LABORATORY | | | | + + + + + POC Glucose (02/16/2020 11:21 AM PDT) + +---------+ + + + | Component | Value | Ref Range | Performed | Pathologist | | | | | At | Signature | + +---------+ + + + | Glucose, | 125 (H) | 70 - 109 mg/dL | [facility] | | | POC | | | [facility] | | | | | [...] [address] | [place] | [phone] | | [facility] | | [address] | | | - LABORATORY | | | | + + + + + POC Glucose (02/16/2020 6:55 AM PDT) + +-------+ + + + | Component | Value | Ref Range | Performed | Pathologist | | | | | At | Signature | + +-------+ + + + | Glucose, | 93 | 70 - 109 mg/dL | [facility] [...] [address] | [place] | [phone] | | [facility] | | [address] | | | - LABORATORY | | | | + + + + + CBC no Differential (02/16/2020 5:07 AM PDT) + + + + + + | Component | Value | Ref Range | Performed | Pathologist | | | | | At | Signature | + + + + + + | WBC | 11.8 (H) | 4.0 - 11.0 K/uL | [facility] | | | | | | [facility] [...] + + + + | Hemoglobin | 7.6 (L) | 11.5 - 16.0 | [facility] | | | | | g/dL | [facility] | | | | | | MEDICAL | | | | | | CENTER - | | | | | | LABORATORY | | + + + + + + | Hematocrit | 25.0 (L) | 34.0 - 47.0 % | [facility] | | | | | | [facility] | | | | | | MEDICAL | | | | | | CENTER - | | | | | | LABORATORY | | + + + + + + | MCV | 94.7 | 83.0 - 101.0 fL | [facility] [...] + + + + | RDW-CV | 16.9 (H) | <15.0 % | [facility] | [...] | [address] | [place], [place] | [phone] | | [facility] | | [address] | | | - LABORATORY | | | | + + + + + B Type Natriuretic Peptide (02/16/2020 5:06 AM PDT) + + + + + + | Component | Value | Ref Range | Performed | Pathologist | | | | | At | Signature | + + + + + + | BNP | 609 (H)Comment: New | <100 pg/mL | [facility] [...] + | [facility] | [address] | [place] | [phone] | | [facility] | | [address] | | | - LABORATORY | | | | + + + + + Basic Metabolic Panel (02/16/2020 5:06 AM PDT) + + + + + + | Component | Value | Ref Range | Performed | Pathologist | | | | | At | Signature | + + + + + + | Na | 138 | 136 - 145 | [facility] | | | | | mmol/L | [facility] | | | | | | MEDICAL | | | | | | CENTER - | | | | | | LABORATORY | | + + + + + + | K | 4.5 | 3.4 - 5.1 | [facility] | [...] + + + + | Creatinine | 0.70 | 0.55 - 1.02 | [facility] | [...] mL/min/1.73m2 | [facility] | | | [place] | RATE,ESTIMATED | | MEDICAL | | | | mL/min/1.89w0Lryl than | | CENTER - | | [...] + + + + | BUN/Creatin | 40.0 | | [facility] | | | ine [...] [address] | [place] | [phone] | | [facility] | | [address] | | | - LABORATORY | | | | + + + + + POC Glucose (02/15/2020 9:17 PM PDT) + +---------+ + + + | Component | Value | Ref Range | Performed | Pathologist | | | | | At | Signature | + +---------+ + + + | Glucose, | 225 (H) | 70 - 109 mg/dL | [...] + | [facility] | [address] | [place] | [phone] | | [facility] | | [address] | | | - LABORATORY | | | | + + + + + POC Glucose (02/15/2020 5:14 PM PDT) + +---------+ + + + | Component | Value | Ref Range | Performed | Pathologist | | | | | At | Signature | + +---------+ + + + | Glucose, | 201 (H) | 70 - 109 mg/dL | [...] + | [facility] | [address] | [place] | [phone] | | [facility] | | [address] | | | - LABORATORY | | | | + + + + + POC Glucose (02/15/2020 11:27 AM PDT) + +---------+ + + + | Component | Value | Ref Range | Performed | Pathologist | | | | | At | Signature | + +---------+ + + + | Glucose, | 189 (H) | 70 - 109 mg/dL | [...] | [address] | [place], [place] | [phone] | | [facility] | | [address] | | | - LABORATORY | | | | + + + + + B Type Natriuretic Peptide (02/15/2020 5:30 AM PDT) + + + + + + | Component | Value | Ref Range | Performed | Pathologist | | | | | At | Signature | + + + + + + | BNP | 525 (H)Comment: New | <100 pg/mL | [facility] | | | | method in use [...] + | [facility] | [address] | [place] | [phone] | | [facility] | | [address] | | | - LABORATORY | | | | + + + + + CBC no Differential (02/15/2020 5:30 AM PDT) + + + + + + | Component | Value | Ref Range | Performed | Pathologist | | | | | At | Signature | + + + + + + | WBC | 15.6 (H) | 4.0 - 11.0 K/uL | [facility] | | | | | | [facility] | | | | | | MEDICAL | | | | | | CENTER - | | | | | | LABORATORY | | + + + + + + | RBC | 2.90 (L) | 3.70 - 5.20 | [facility] [...] + + + + | Hematocrit | 27.5 (L) | 34.0 - 47.0 % | [...] + + + + | RDW-SD | 57.5 (H) | 35.1 - 46.3 fL | [facility] | | | | | | [facility] | | | | | | MEDICAL | | | | | | CENTER - | | | | | | LABORATORY | | + + + + + + | Platelet | 205 | 140 - 440 K/uL | [facility] | | | Count | | | [facility] | | | | | | MEDICAL | | | | | | CENTER - | | | | | | LABORATORY | | + + + + + + | MPV | 9.4 | 6.5 - 12.4 fL | [facility] [...] | | | | WBCs | [facility] | | | | [...] | [address] | [place], [place] | [phone] | | [facility] | | [address] | | | - LABORATORY | | | | + + + + + Basic Metabolic Panel (02/15/2020 5:30 AM PDT) + + + + + + | Component | Value | Ref Range | Performed | Pathologist | | | | | At | Signature | + + + + + + | Na | 138 | 136 - 145 | [facility] | | | | | mmol/L | [facility] | | | | | | MEDICAL | | | | | | CENTER - | | | | | | LABORATORY | | + + + + + + | K | 4.6 | 3.4 - 5.1 | [facility] | [...] + + + + | Glucose | 83 | 60 - 106 mg/dL | [facility] [...] + + + + | Creatinine | 0.87 | 0.55 - 1.02 | [facility] | [...] mL/min/1.73m2 | [facility] | | | [place] | RATE,ESTIMATED | | MEDICAL | | | | mL/min/1.41k1Hast than | | CENTER - | | [...] + + + + | BUN/Creatin | 28.7 | | [facility] | | | ine [...] [address] | [place] | [phone] | | [facility] | | [address] | | | - LABORATORY | | | | + + + + + POC Glucose (02/14/2020 9:30 PM PDT) + +---------+ + + + | Component | Value | Ref Range | Performed | Pathologist | | | | | At | Signature | + +---------+ + + + | Glucose, | 241 (H) | 70 - 109 mg/dL | [...] [address] | [place] | [phone] | | [facility] | | [address] | | | - LABORATORY | | [...] | + +---------+ + + POC Glucose (02/14/2020 4:46 PM PDT) + +---------+ + + [...] [address] | [place] | [phone] | | [facility] | | [address] | | | - LABORATORY | | | | + + + + + ECHO Complete (02/14/2020 3:53 PM [...] | | | | | | n Dupage | | | | | + +--------+ [...] 328 | | | [place] Patient Number [id number] Date of Study | | | 02/14/2020 Visit Number [id number] Referring | | | Physician DIMAS Coe | | | Briar Shop Supervisor RAJESH COREY Number Date of | | | 1930 Interpreting GLENDA STRATTON MD | | | Physician Age | | | 89 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 Procedure DateDate: 02/14/2020 Start: 03:12 | | | PM Study Location: Adult FloorTechnical Quality: Adequate | | | visualization Indications:CONGESTIVE [...] Number 328 | | [place] Patient Number [id number] Date of Study 02/14/2020 Visit | | Number [id number] Referring Physician DIMAS Coe Accession | | [id number] Briar Shop Supervisor RAJESH COREY Number Date of 1930 | [...] | + +---------+ + + POC Glucose (02/14/2020 11:40 AM PDT) + +---------+ + + + [...] [address] | [place] | [phone] | | [facility] | | [address] | | | - LABORATORY | | | | + + + + + POC Glucose (02/14/2020 6:39 AM PDT) + +-------+ + + + | Component | Value | Ref Range | Performed | Pathologist | | | | | At | Signature | + +-------+ + + + | Glucose, | 93 | 70 - 109 mg/dL | [facility] [...] + | [facility] | [address] | [place] | [phone] | | [facility] | | [address] | | | - LABORATORY | | | | + + + + + B Type Natriuretic Peptide (02/14/2020 5:15 AM PDT) + + + + + + | Component | Value | Ref Range | Performed | Pathologist | | | | | At | Signature | + + + + + + | BNP | 501 (H)Comment: New | <100 pg/mL | [facility] | | | | method in use as of | | [facility] | | | | December 02, 2018. [...] [address] | [place] | [phone] | | [facility] | | [address] | | | - LABORATORY | | | | + + + + + CBC no Differential (02/14/2020 5:15 AM PDT) + + + + + + | Component | Value | Ref Range | Performed | Pathologist | | | | | At | Signature | + + + + + + | WBC | 11.9 (H) | 4.0 - 11.0 K/uL | [...] + + + + | RDW-SD | 55.5 (H) | 35.1 - 46.3 fL | [facility] | | | | | [facility] | | | | | | MEDICAL | | | | | | CENTER - | | | | | | LABORATORY | | + + + + + + | Platelet | 204 | 140 - 440 K/uL | [facility] [...] [address] | [place] | [phone] | | [facility] | | [address] | | | - LABORATORY | | | | + + + + + Basic Metabolic Panel (02/14/2020 5:15 AM PDT) + + + + + + | Component | Value | Ref Range | Performed | Pathologist | | | | | At | Signature | + + + + + + | Na | 137 | 136 - 145 | [facility] | | | | | mmol/L | [facility] | | | | | | MEDICAL | | | | | | CENTER - | | | | | | LABORATORY | | + + + + + + | K | 5.0 | 3.4 - 5.1 | [facility] | [...] 18 | 9 - 23 mg/dL | [facility] | | | | | | [facility] | | | | | | MEDICAL | | | | | | CENTER - | | | | | | LABORATORY | | + + + + + + | Creatinine | 0.84 | 0.55 - 1.02 | [facility] | | | | | mg/dL | [facility] | | | | | | MEDICAL | | | | | | CENTER - | | | | | | LABORATORY | | + + + + + + | eGFR if not | >60Comment: GLOMERULAR | >=60 | [facility] | | | | FILTRATION | mL/min/1.73m2 | [facility] | | | [place] | RATE,ESTIMATED | | MEDICAL | | | | mL/min/1.68k4Sjex than | | CENTER - | | [...] + | [facility] | [address] | [place] | [phone] | | [facility] | | [address] | | | - LABORATORY | | | | + + + + + POC Glucose (02/13/2020 8:57 PM PDT) + +---------+ + + + | Component | Value | Ref Range | Performed | Pathologist | | | | | At | Signature | + +---------+ + + + | Glucose, | 164 (H) | 70 - 109 mg/dL | [...] + | [facility] | [address] | [place], [place] | [phone] | | [facility] | | [address] | | | - LABORATORY | | | | + + + + + POC Glucose (02/13/2020 5:14 PM PDT) + +---------+ + + + [...] [address] | [place] | [phone] | | [facility] | | [address] | | | - LABORATORY | | | | + + + + + CBC no Differential (02/13/2020 2:52 PM PDT) + + + + + + | Component | Value | Ref Range | Performed | Pathologist | | | | | At | Signature | + + + + + + | WBC | 13.5 (H) | 4.0 - 11.0 K/uL | [...] + + + + | Hematocrit | 26.0 (L) | 34.0 - 47.0 % | [facility] | | | | | | [facility] | | | | | | MEDICAL | | | | | | CENTER - | | | | | | LABORATORY | | + + + + + + | MCV | 94.5 | 83.0 - 101.0 fL | [facility] [...] + + + + | Platelet | 216 | 140 - 440 K/uL | [facility] [...] + | [facility] | [address] | [place] | [phone] | | [facility] | | [address] | | | - LABORATORY | | | | + + + + + B Type Natriuretic Peptide (02/13/2020 2:52 PM PDT) + + + + + + | Component | Value | Ref Range | Performed | Pathologist | | | | | At | Signature | + + + + + + | BNP | 433 (H)Comment: New | <100 pg/mL | [facility] | | | | method in use as of | | [facility] | | | | December 02, 2018. [...] [address] | [place] | [phone] | | [facility] | | [address] | | | - LABORATORY | | | | + + + + + Basic Metabolic Panel (02/13/2020 2:52 PM PDT) + + + + + + | Component | Value | Ref Range | Performed | Pathologist | | | | | At | Signature | + + + + + + | Na | 136 | 136 - 145 | [facility] | | | | | mmol/L | [facility] | | | | | | MEDICAL | | | | | | CENTER - | | | | | | LABORATORY | | + + + + + + | K | 5.0 | 3.4 - 5.1 | [facility] | [...] + + + + | Glucose | 211 (H) | 60 - 106 mg/dL | [facility] | | | | | | [facility] | | | | | | MEDICAL | | | | | | CENTER - | | | | | | LABORATORY | | + + + + + + | BUN | 24 (H) | 9 - 23 mg/dL | [facility] | | | | | | [facility] | | | | | | MEDICAL | | | | | | CENTER - | | | | | | LABORATORY | | + + + + + + | Creatinine | 1.00 | 0.55 - 1.02 | [facility] | | | | | mg/dL | [facility] | | | | | | MEDICAL | | | | | | CENTER - | | | | | | LABORATORY | | + + + + + + | eGFR if not | 52 (L)Comment: | >=60 | [facility] | | | | GLOMERULAR FILTRATION | mL/min/1.73m2 | [facility] | | | [place] | RATE,ESTIMATED | | MEDICAL | | | | mL/min/1.27y6Caif than | | CENTER - | | [...] + + + + | Calcium | 8.0 (L) | 8.7 - 10.4 | [facility] | | | | | mg/dL | [facility] | | | | | | MEDICAL | | | | | | CENTER - | | | | | | LABORATORY | | + + + + + + | BUN/Creatin | 24.0 | | [facility] | | | ine [...] + | [facility] | [address] | [place] | [phone] | | [facility] | | [address] | | | - LABORATORY | | | | + + + + + POC Glucose (02/13/2020 11:54 AM PDT) + +-------+ + + + | Component | Value | Ref Range | Performed | Pathologist | | | | | At | Signature | + +-------+ + + + | Glucose, | 103 | 70 - 109 mg/dL | [facility] [...] [address] | [place] | [phone] | | [facility] | | [address] | | | - LABORATORY | | | | + + + + + CBC no Differential (02/13/2020 5:51 AM PDT) + + + + + [...] + + + + | RBC | 2.85 (L) | 3.70 - 5.20 | [facility] | | | | | M/uL | [facility] | | | | [...] + + + + | MCV | 90.9 | 83.0 - 101.0 fL | [facility] [...] + + + + | MCHC | 31.7 (L) | 32.0 - 36.0 | [facility] [...] + + + + | RDW-SD | 53.1 (H) | 35.1 - 46.3 fL | [...] + + + + | MPV | Comment: Unable to | | [facility] | | | | report due to abnormal | | [facility] | | | | platelet flag | | MEDICAL | | | | | | CENTER - | | | | | | LABORATORY | | + + + + + + | Immature | Comment: Unable to | | [facility] | | | Platelet | report due to abnormal | | [facility] | | | Fraction | platelet flag | | MEDICAL | | | | [...] [address] | [place] | [phone] | | [facility] | | [address] | | | - LABORATORY | | | | + + + + + Basic Metabolic Panel (02/13/2020 5:51 AM PDT) + + + + + + | Component | Value | Ref Range | Performed | Pathologist | | | | | At | Signature | + + + + + + | Na | 138 | 136 - 145 | [facility] | | | | | mmol/L | [facility] | | | | | | MEDICAL | | | | | | CENTER - | | | | | | LABORATORY | | + + + + + + | K | 5.6 (H) | 3.4 - 5.1 | [facility] | [...] + + + + | Creatinine | 0.92 | 0.55 - 1.02 | [facility] | | | | | mg/dL | [facility] | | | | | | MEDICAL | | | | | | CENTER - | | | | | | LABORATORY | | + + + + + + | eGFR if not | 57 (L)Comment: | >=60 | [facility] | | | | GLOMERULAR FILTRATION | mL/min/1.73m2 | [facility] | | | NIUE[place] | RATE,ESTIMATED | | MEDICAL | | | | mL/min/1.24q9Rvcm than | | CENTER - | | [...] | | | | | mg/dL | [facility] | | | | | [...] [address] | [place] | [phone] | | [facility] | | [address] | | | - LABORATORY | | | | + + + + + POC Glucose (02/13/2020 5:35 AM PDT) + +-------+ + + + | Component | Value | Ref Range | Performed | Pathologist | | | | | At | Signature | + +-------+ + + + | Glucose, | 89 | 70 - 109 mg/dL | [facility] | | | POC | | | [facility] | | | | | [...] + | [facility] | [address] | [place] | [phone] | | [facility] | | [address] | | | - LABORATORY | | | | + + + + + POC Glucose (02/12/2020 8:11 PM PDT) + +---------+ + + + | Component | Value | Ref Range | Performed | Pathologist | | | | | At | Signature | + +---------+ + + + | Glucose, | 190 (H) | 70 - 109 mg/dL | [...] [address] | [place] | [phone] | | [facility] | | [address] | | | - LABORATORY | | | | + + + + + POC Glucose (02/12/2020 5:10 PM PDT) + +---------+ + + + | Component | Value | Ref Range | Performed | Pathologist | | | | | At | Signature | + +---------+ + + + | Glucose, | 140 (H) | 70 - 109 mg/dL | [...] [address] | [place] | [phone] | | [facility] | | [address] | | | - LABORATORY | | | | + + + + + [facility] STAT instructions for COVID-19 tracking (02/12/2020 4:15 PM PDT) + +-------+ + + + [...] + +---------+ + + Coronavirus (COVID-19) NAAT (02/12/2020 4:15 PM PDT) + + + + + [...] | + + + | See scanned reoport | [facility] | + + + + +---------+ + + | Performing | Address | City/State/Zipcode | Phone Number | | Organization | | | | + +---------+ + + | [facility] | | | | + +---------+ + + CBC no Differential (02/12/2020 3:34 PM PDT) + + + + + + | Component | Value | Ref Range | Performed | Pathologist | | | | | At | Signature | + + + + + + | WBC | 14.2 (H) | 4.0 - 11.0 K/uL | [...] + + + + | Hematocrit | 29.9 (L) | 34.0 - 47.0 % | [...] + + + + | RDW-SD | 55.4 (H) | 35.1 - 46.3 fL | [facility] | [facility] | | | | [facility] - | | | | | | LABORATORY | | + + + + + + | Platelet | 224 | 140 - 440 K/uL | [facility] [...] [address] | [place] | [phone] | | [facility] | | [address] | | | - LABORATORY | | | | + + + + + POC Glucose (02/12/2020 11:49 AM PDT) + +-------+ + + + [...] [address] | [place] | [phone] | | [facility] | | [address] | | | - LABORATORY | | | | + + + + + POC Glucose (02/12/2020 6:21 AM PDT) + +-------+ + + + | Component | Value | Ref Range | Performed | Pathologist | | | | | At | Signature | + +-------+ + + + | Glucose, | 84 | 70 - 109 mg/dL | [facility] [...] [address] | [place] | [phone] | | [facility] | | [address] | | | - LABORATORY | | | | + + + + + CBC no Differential (02/11/2020 8:21 PM PDT) + + + + + + | Component | Value | Ref Range | Performed | Pathologist | | | | | At | Signature | + + + + + + | WBC | 12.7 (H) | 4.0 - 11.0 K/uL | [...] + + + + | Hematocrit | 26.9 (L) | 34.0 - 47.0 % | [...] + + + + | RDW-SD | 54.7 (H) | 35.1 - 46.3 fL | [...] [address] | [place] | [phone] | | [facility] | | [address] | | | - LABORATORY | | | | + + + + + POC Glucose (02/11/2020 8:19 PM PDT) + +---------+ + + + | Component | Value | Ref Range | Performed | Pathologist | | | | | At | Signature | + +---------+ + + + | Glucose, | 183 (H) | 70 - 109 mg/dL | [...] [address] | [place] | [phone] | | [facility] | | [address] | | | - LABORATORY | | | | + + + + + POC Glucose (02/11/2020 5:22 PM PDT) + +---------+ + + + | Component | Value | Ref Range | Performed | Pathologist | | | | | At | Signature | + +---------+ + + + | Glucose, | 216 (H) | 70 - 109 mg/dL | [...] [address] | [place] | [phone] | | [facility] | | [address] | | | - LABORATORY | | | | + + + + + B Type Natriuretic Peptide (02/11/2020 2:40 PM PDT) + + + + + + | Component | Value | Ref Range | Performed | Pathologist | | | | | At | Signature | + + + + + + | BNP | 585 (H)Comment: New | <100 pg/mL | [facility] | | | | method in use as of | | [facility] | | | | December 02, 2018. [...] | [address] | [place], [place] | [phone] | | [facility] | | [address] | | | - LABORATORY | | | | + + + + + CBC no Differential (02/11/2020 2:40 PM PDT) + + + + + + | Component | Value | Ref Range | Performed | Pathologist | | | | | At | Signature | + + + + + + | WBC | 12.4 (H) | 4.0 - 11.0 K/uL | [facility] | | | [facility] | | [facility] | | | | | | CENTER - | | | | | | LABORATORY | | + + + + + + | RBC | 3.30 (L) | 3.70 - 5.20 | [facility] [...] + + + + | RDW-SD | 54.3 (H) | 35.1 - 46.3 fL | [facility] | | | | | | [facility]ICAL | | | | | | CENTER - | | | | | | LABORATORY | | + + + + + + | Platelet | 205 | 140 - 440 K/uL | [facility] [...] + | [facility] | [address] | [place] | [phone] | | [facility] | | [address] | | | - LABORATORY | | | | + + + + + XR Chest AP Portable (02/11/2020 2:35 PM PDT) + + | Specimen | + + | | + + + + + | Impressions | Performed At | + + + | No acute findings. Dictated and Signed by: Patrick Rodriguez MD | [facility] | | Electronically signed: 02/11/2020 2:40 PM | | + + + + + + | Narrative | Performed At | + + + | XR CHEST AP PORTABLE 02/11/2020 2:35 PM HISTORY: Increased SOB. | [facility] | | COMPARISON: Multiple priors. Findings: Heart size is at the | | | upper limits of normal. 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 There is atherosclerosis of the aorta. Central pulmonary | | | vasculature is normal. Mild diffuse scarring are present of the | | | bilateral lungs. Degenerative changes are noted of the shoulders. | | | There is moderate spondylosis. | | + + + + + | Procedure Note | + + | Kobe, Rad Results In - 02/11/2020 2:43 PM PDT XR CHEST AP PORTABLE 02/11/2020 2:35 PM | | | | HISTORY: Increased SOB. | | | | COMPARISON: Multiple [...] Patrick Rodriguez MD | | Electronically signed: 02/11/2020 2:40 PM | + + + +---------+ + + | Performing | Address | City/State/Zipcode | Phone Number | | Organization | | | | + +---------+ + + | [facility] | | | | + +---------+ + + POC Glucose (02/11/2020 12:08 PM PDT) + +---------+ + + + | Component | Value | Ref Range | Performed | Pathologist | | | | | At | Signature | + +---------+ + + + | Glucose, | 191 (H) | 70 - 109 mg/dL | [...] [address] | [place] | [phone] | | [facility] | | [address] | | | - LABORATORY | | | | + + + + + CBC no Differential (02/11/2020 8:30 AM PDT) + + + + + + | Component | Value | Ref Range | Performed | Pathologist | | | | | At | Signature | + + + + + + | WBC | 12.1 (H) | 4.0 - 11.0 K/uL | [facility] | | | | | | [facility] [...] + + + + | Hemoglobin | 9.0 (L) | 11.5 - 16.0 | [facility] | | | | | g/dL | [facility] | | | | | | MEDICAL | | | | | | CENTER - | | | | | | LABORATORY | | + + + + + + | Hematocrit | 28.8 (L) | 34.0 - 47.0 % | [facility] | | | | [facility] | | | | | | [facility]ICAL | | | | | | CENTER - | | | | | | LABORATORY | | + + + + + + | MCV | 92.0 | 83.0 - 101.0 fL | [facility] [...] + + + + | RDW-SD | 53.7 (H) | 35.1 - 46.3 fL | [facility] | | | | | | [facility]ICAL | | | | | | CENTER - | | | | | | LABORATORY | | + + + + + + | Platelet | 212 | 140 - 440 K/uL | [facility] [...] + + + + | Immature | 2.3Comment: Low PLT + | 0.9 - 11.2 [...] [address] | [place] | [phone] | | [facility] | | [address] | | | - LABORATORY | | | | + + + + + POC Glucose (02/11/2020 6:11 AM PDT) + +-------+ + + + [...] | [address] | [place], [place] | [phone] | | [facility] | | [address] | | | - LABORATORY | | | | + + + + + Basic Metabolic Panel (02/11/2020 2:43 AM PDT) + + + + + [...] + + + + | K | 4.5 | 3.4 - 5.1 | [facility] | | | | | mmol/L | [facility] | | | | | | MEDICAL | | | | | | CENTER - | | | | | | LABORATORY | | + + + + + + | Cl | 103 | 98 - 107 mmol/L | [facility] [...] + + + + | Glucose | 66 | 60 - 106 mg/dL | [facility] [...] | mL/min/1.73m2 | [facility] | | | [facility] | RATE,ESTIMATED | | MEDICAL | | | | mL/min/1.01j1Lxjo than | | CENTER - | | [...] + | [facility] | [address] | [place] | [phone] | | [facility] | | [address] | | | - LABORATORY | | | | + + + + + CBC no Differential (02/11/2020 2:43 AM PDT) + + + + + + | Component | Value | Ref Range | Performed | Pathologist | | | | | At | Signature | + + + + + + | WBC | 11.9 (H) | 4.0 - 11.0 K/uL | [...] + + + + | Hematocrit | 29.4 (L) | 34.0 - 47.0 % | [facility] | | | | | | [facility]ICAL | | | | | | CENTER - | | | | | | LABORATORY | | + + + + + + | MCV | 92.2 | 83.0 - 101.0 fL | [facility] [...] + + + + | MCHC | 31.6 (L) | 32.0 - 36.0 | [facility] [...] + + + + | RDW-SD | 53.2 (H) | 35.1 - 46.3 fL | [facility] | | | | | | [facility] | | | | | | CENTER - | | | | | | LABORATORY | | + + + + + + | Platelet | 262 | 140 - 440 K/uL | [facility] [...] [address] | [place] | [phone] | | [facility] | | [address] | | | - LABORATORY | | | | + + + + + POC Glucose (02/10/2020 9:57 PM PDT) + +---------+ + + + | Component | Value | Ref Range | Performed | Pathologist | | | | | At | Signature | + +---------+ + + + | Glucose, | 170 (H) | 70 - 109 mg/dL | [facility] | [...] [address] | [place] | [phone] | | [facility] | | [address] | | | - LABORATORY | | | | + + + + + CBC no Differential (02/10/2020 8:02 PM PDT) + + + + + [...] + + + + | RBC | 3.05 (L) | 3.70 - 5.20 | [facility] [...] + + + + | Hematocrit | 27.6 (L) | 34.0 - 47.0 % | [facility] | [facility] | [facility] | | | | | | [facility]ICAL | | | | | | CENTER - | | | | | | LABORATORY | | + + + + + + | MCV | 90.5 | 83.0 - 101.0 fL | [facility] [...] + + + + | MCHC | 32.2 | 32.0 - 36.0 | [facility] | [...] + + + + | RDW-SD | 53.4 (H) | 35.1 - 46.3 fL | [facility] | | | | [facility] | | | | | | MEDICAL | | | | | | CENTER - | | | | | | LABORATORY | | + + + + + + | Platelet | 167 | 140 - 440 K/uL | [facility] | | | Count | | | [facility] | | | | | | MEDICAL | | | | | | CENTER - | | | | | | LABORATORY | | + + + + + + | MPV | 11.4 | 6.5 - 12.4 fL | [facility] | | | | | [facility] | | | | | | [facility]ICAL | | | | | | CENTER - | | | | | | LABORATORY | | + + + + + + | Immature | 2.3Comment: Low PLT + | 0.9 - 11.2 [...] [address] | [place] | [phone] | | [facility] | | [address] | | | - LABORATORY | | | | + + + + + POC Glucose (02/10/2020 4:39 PM PDT) + +---------+ + + + | Component | Value | Ref Range | Performed | Pathologist | | | | | At | Signature | + +---------+ + + + | Glucose, | 142 (H) | 70 - 109 mg/dL | [...] + | [facility] | [address] | [place] | [phone] | | [facility] | | [address] | | | - LABORATORY | | | | + + + + + CBC no Differential (02/10/2020 2:54 PM PDT) + + + + + + | Component | Value | Ref Range | Performed | Pathologist | | | | | At | Signature | + + + + + + | WBC | 16.0 (H) | 4.0 - 11.0 K/uL | [...] + + + + | Hematocrit | 29.3 (L) | 34.0 - 47.0 % | [facility] | [facility] | | | | | | [facility]ICAL | | | | | | CENTER - | | | | | | LABORATORY | | + + + + + + | MCV | 91.3 | 83.0 - 101.0 fL | [facility] [...] + + + + | MCHC | 31.7 (L) | 32.0 - 36.0 | [facility] [...] + + + + | RDW-SD | 54.3 (H) | 35.1 - 46.3 fL | [facility] | [facility] | [facility] | | | | | | MEDICAL | | | | | | CENTER - | | | | | | LABORATORY | | + + + + + + | Platelet | 181 | 140 - 440 K/uL | [facility] [...] + + + + | Immature | 3.0Comment: Low PLT + | 0.9 - 11.2 [...] + + + | Absolute | 0.02 (H)Comment: | 0.00 - 0.01 | [facility] | | | nRBC | Presence of any NRBC's | K/uL | [facility] | | | | in adults is clinically | | MEDICAL | | | | significant. | | CENTER - | | | [...] [address] | [place] | [phone] | | [facility] | | [address] | | | - LABORATORY | | | | + + + + + POC Glucose (02/10/2020 11:41 AM PDT) + +-------+ + + + [...] [address] | [place] | [phone] | | [facility] | | [address] | | | - LABORATORY | | | | + + + + + CBC no Differential (02/10/2020 10:17 AM PDT) + + + + + + | Component | Value | Ref Range | Performed | Pathologist | | | | | At | Signature | + + + + + + | WBC | 15.2 (H) | 4.0 - 11.0 K/uL | [...] + + + + | Hematocrit | 28.9 (L) | 34.0 - 47.0 % | [...] + + + + | RDW-SD | 56.1 (H) | 35.1 - 46.3 fL | [facility] | [facility] | | [facility] | | | | | | MEDICAL | | | | | | CENTER - | | | | | | LABORATORY | | + + + + + + | Platelet | 178 | 140 - 440 K/uL | [facility] | | | Count | | | [facility] | | | | | | MEDICAL | | | | | | CENTER - | | | | | | LABORATORY | | + + + + + + | MPV | 11.6 | 6.5 - 12.4 fL | [facility] [...] [address] | [place] | [phone] | | [facility] | | [address] | | | - LABORATORY | | | | + + + + + POC Glucose (02/10/2020 6:19 AM PDT) + +-------+ + + + | Component | Value | Ref Range | Performed | Pathologist | | | | | At | Signature | + +-------+ + + + | Glucose, | 72 | 70 - 109 mg/dL | [facility] [...] [address] | [place] | [phone] | | [facility] | | [address] | | | - LABORATORY | | | | + + + + + CBC no Differential (02/10/2020 5:48 AM PDT) + + + + + + | Component | Value | Ref Range | Performed | Pathologist | | | | | At | Signature | + + + + + + | WBC | 11.6 (H) | 4.0 - 11.0 K/uL | [facility] | | | | | | [facility] | | | | | | MEDICAL | | | | | | CENTER - | | | | | | LABORATORY | | + + + + + + | RBC | 3.01 (L) | 3.70 - 5.20 | [facility] [...] + + + + | MCV | 89.7 | 83.0 - 101.0 fL | [facility] [...] + + + + | MCHC | 32.6 | 32.0 - 36.0 | [facility] | [...] + + + + | RDW-SD | 53.7 (H) | 35.1 - 46.3 fL | [facility] | | | | | [facility] | | | | | | MEDICAL | | | | | | CENTER - | | | | | | LABORATORY | | + + + + + + | Platelet | 223 | 140 - 440 K/uL | [facility] [...] ST. | [address] | [place] | [phone] | | [facility] | | [address] | | | - LABORATORY | | | | + + + + + Type and Screen (02/10/2020 5:48 AM PDT) + + + + + [...] St | [place] | | | [facility] | | [address] | | | - BLOOD BANK | | | | + + + + + Protime INR (02/10/2020 5:48 AM PDT) + + + + + + | Component | Value | Ref Range | Performed | Pathologist | | | | | At | Signature | + + + + + + | Prothrombin | 14.2 (H) | 11.3 - 13.9 | [facility] [...] + | [facility] | [address] | [place] | [phone] | | [facility] | | [address] | | | - LABORATORY | | | | + + + + + Basic Metabolic Panel (02/10/2020 5:48 AM PDT) + + + + + + | Component | Value | Ref Range | Performed | Pathologist | | | | | At | Signature | + + + + + + | Na | 138 | 136 - 145 | [facility] | [...] + + + + | Cl | 103 | 98 - 107 mmol/L | [facility] [...] + + + + | Glucose | 70 | 60 - 106 mg/dL | [facility] [...] | mL/min/1.73m2 | [facility] | | | [facility] | RATE,ESTIMATED | | MEDICAL | | | | mL/min/1.90t3Vqlf than | | CENTER - | | [...] + | BUN/Creatin | 24.4 | | [facility] | | | ine [...] | [address] | [place], [place] | [phone] | | [facility] | | [address] | | | - LABORATORY | | | | + + + + + CT Chest wo Contrast (02/09/2020 [...] ER staff by | | | the [facility] radiologist on February 09, 2020 at [...] reported to the ER staff by the [facility] | | Imaging radiologist on February 09, [...] + + | Card Lot # | [id number] | | | | + + + + + + | Card | 9/21 | | | | | Expiration | [...] + + | Stool | + + Protime INR (02/09/2020 10:17 PM PDT) + + + + + [...] + | [facility] | [address] | [place] | [phone] | | [facility] | | [address] | | | - LABORATORY | | | | + + + + + PTT (02/09/2020 10:17 PM PDT) + +-------+ + + + | Component | Value | Ref Range | Performed | Pathologist | | | | | At | Signature | + +-------+ + + + | aPTT | 26 | 22 - 36 seconds | [facility] | | | | | | [facility] [...] [address] | [place] | [phone] | | [facility] | | [address] | | | - LABORATORY | | | | + + + + + Extra Blue Top Tube (02/09/2020 10:17 PM PDT) + +-------+ + [...] [address] | [place] | [phone] | | [facility] | | [address] | | | - LABORATORY | | | | + + + + + Comprehensive Metabolic Panel (02/09/2020 10:17 PM PDT) + + + + + + | Component | Value | Ref Range | Performed | Pathologist | | | | | At | Signature | + + + + + + | Na | 136 | 136 - 145 | [facility] | [...] + + + + | Creatinine | 1.02 | 0.55 - 1.02 | [facility] | | | | | mg/dL | [facility] | | | | | | MEDICAL | | | | | | CENTER - | | | | | | LABORATORY | | + + + + + + | eGFR if not | 51 (L)Comment: | >=60 | [facility] | | | | GLOMERULAR FILTRATION | mL/min/1.73m2 | [facility] | | | [facility] | RATE,ESTIMATED | | MEDICAL | | | | mL/min/1.40f8Etso than | | CENTER - | | [...] + + + + | Total | 5.0 (L) | 5.7 - 8.2 g/dL | [facility] | | | Protein | | | [facility] | | | | | | MEDICAL | | | | | | CENTER - | | | | | | LABORATORY | | + + + + + + | AST | 20 | 0 - 34 U/L | [facility] [...] + + + + | Alkaline | 98 | 46 - 116 U/L | [facility] [...] + + + + | BUN/Creatin | 21.6 | | [facility] | | | ine [...] + | [facility] | [address] | [place] | [phone] | | [facility] | | [address] | | | - LABORATORY | | | | + + + + + CBC with Differential (02/09/2020 10:17 PM PDT) + + + + + + | Component | Value | Ref Range | Performed | Pathologist | | | | | At | Signature | + + + + + + | WBC | 12.5 (H) | 4.0 - 11.0 K/uL | [facility] | | | | | [facility] | | | | | | MEDICAL | | | | | | CENTER - | | | | | | LABORATORY | | + + + + + + | RBC | 3.31 (L) | 3.70 - 5.20 | [facility] [...] | | | | g/dL | . [facility] | | | | | | [...] + + + + | MCV | 91.2 | 83.0 - 101.0 fL | [facility] [...] + + + + | MCHC | 31.5 (L) | 32.0 - 36.0 | [facility] [...] + + + + | RDW-SD | 54.3 (H) | 35.1 - 46.3 fL | [facility] | | | | | | [facility] | | | | | | MEDICAL | | | | | | CENTER - | | | | | | LABORATORY | | + + + + + + | Platelet | 218 | 140 - 440 K/uL | [facility] [...] + + + + | % | 86.1 (H) | 45.0 - 82.0 % | [...] + + + | % Monocytes | 6.2 | 4.0 - 12.0 % | [facility] [...] + + + + | Absolute | 10.79 (H) | 1.80 - 8.50 | [facility] | | | Neutrophils | | K/uL | [facility] | | | | | | MEDICAL | | | | | | CENTER - | | | | | | LABORATORY | | + + + + + + | Absolute | 0.86 | 0.60 - 3.20 | [facility] | | | Lymphocytes | | K/uL | [facility] | | | | | | MEDICAL | | | | | | CENTER - | | | | | | LABORATORY | | + + + + + + | Absolute | 0.77 | 0.00 - 1.00 | [facility] | [...] [address] | [place] | [phone] | | [facility] | | [address] | | | - LABORATORY | | | | + + + + + VAS Upper Extremity Venous Left (02/09/2020 8:05 PM PDT) + + | Specimen | + + | | + + + + + | Impressions | Performed At | + + + | Deep venous thrombosis is noted within the left subclavian and | [facility] | | axillary veins. DVT is noted within the mid/distal left basilic | | | vein at site of previous IV. The preliminary findings were | | | conveyed to the ordering provider, by the digital media coordinator, immediately | | | following the exam. Dictated and Signed by: Bartolome Neff MD | | | Electronically signed: 02/09/2020 8:35 PM | | + + + + + + | Narrative | Performed At | + + + | VAS UPPER EXTREMITY VENOUS LEFT 02/09/2020 7:19 PM HISTORY: | [facility] | | assess for DVT. COMPARISON: 02/07/2020 PROTOCOL: Tomlinson scale and | | | Doppler images of the upper extremity veins. FINDINGS: See below | | | | | + + + + + | Procedure Note | + + | Kofi Bullock Results In - 02/09/2020 8:38 PM PDT VAS UPPER EXTREMITY VENOUS LEFT | | 02/09/2020 7:19 PM HISTORY: assess for DVT.COMPARISON: 02/07/2020PROTOCOL: Tomlinson scale and | | Doppler images of the upper extremity veins.FINDINGS: See belowIMPRESSION: Deep venous | | thrombosis is noted within the left subclavian and axillary veins. DVT is noted within | | the mid/distal left basilic vein at site of previous IV.The preliminary findings were | | conveyed to the ordering provider, by thesonographer, immediately following the exam. | | Dictated and Signed by: Bartolome Neff MD Electronically signed: 02/09/2020 8:35 PM | | | |FINDINGS: See below | | | |IMPRESSION: | |Deep venous thrombosis is noted within the left subclavian and axillary veins. | | | |DVT is noted within the mid/distal left basilic vein at site of previous IV. | | | |The preliminary findings were conveyed to the ordering provider, by the | |digital media coordinator, immediately following the exam. 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 (chronic) | + + | Chronic obstructive pulmonary disease, unspecified COPD type (HCC) | + + | Decubitus ulcer of sacral region, stage 2 ([facility]) Pressure ulcer, lower back | + + | 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[facility]) Acute on chronic | | combined systolic and diastolic heart failure | + + | Pressure injury of sacral region, stage 3 (HCC) | + + documented in this encounter Administered Medications + +--------+ +--------+------+------+ | Medication Order | MAR | Action | Dose | Rate | Site | | | Action | Date | | | | + +--------+ +--------+------+------+ | acetaminophen (TYLENOL) tablet | Given | 02/24/20 | 500 mg | | | | 500 mg 500 mg, Oral, EVERY 6 | | 20 6:21 | | | | | HOURS PRN, Pain, Starting Zofia | | AM PDT | | | | | 02/10/20 at 0219 | | | | | | + +--------+ +--------+------+------+ +-------+ +--------+---+---+ | Given | 02/14/20 | 500 mg | | | | | 20 4:48 | | | | | | PM PDT | | | | +-------+ +--------+---+---+ | Given | 02/14/20 | 500 mg | | | | | 20 11:37 | | | | | | AM PDT | | | | +-------+ +--------+---+---+ +---+---+ | | | +---+---+ + +-------+ +--------+---+---+ | albuterol 2.5 mg/3 mL nebulizer | Given | 02/24/20 | 2.5 mg | | | | solution 2.5 mg 2.5 mg, | | 20 10:07 | | | | | Nebulization, EVERY 4 HOURS PRN, | | AM PDT | | | | | Wheezing, Shortness of Breath, | | | | | | | Starting Zofia 02/10/20 at 0219, RT | | | | | | | will administer., | | | | | | + +-------+ +--------+---+---+ +---+---+ | | | +---+---+ + +-------+ +--------+---+---+ | albuterol 2.5 mg/3 mL nebulizer | Given | 02/24/20 | 2.5 mg | | | | solution 2.5 mg 2.5 mg, | | 20 7:54 | | | | | Nebulization, RT Q6H, First dose | | AM PDT | | | | | on Zofia 02/10/20 at 0300 | | | | | | + +-------+ +--------+---+---+ +-------+ +--------+---+---+ | Given | 02/23/20 | 2.5 mg | | | | | 20 8:47 | | | | | | PM PDT | | | | +-------+ +--------+---+---+ | Given | 02/23/20 | 2.5 mg | | | | | 20 2:59 | | | | | | PM PDT | | | | +-------+ +--------+---+---+ + +---+ | | | + +---+ | alteplase (CATHFLO ACTIVASE) | | | injection 2 mg 2 mg, | | | Intracatheter, PRN, Occluded PICC | | | or occluded Central Line., | | | Starting 02/11/20 at 1651, | | | Instill into each occluded lumen, | | | allow to dwell 30-120 minutes, | | | aspirate and discard solution, | | | flush with 20 ml NS. May repeat X | | | one., | | + +---+ | | | + +---+ | aluminum & magnesium | | | hydroxide-simethicone (MAALOX | | | PLUS REGULAR STRENGTH) 200-200-20 | | | mg/5 mL suspension 30 mL 30 mL, | | | Oral, EVERY 4 HOURS PRN, | | | Indigestion, Starting 02/18/20 | | | at 1104, Shake well., | | + +---+ | | | + +---+ + +-------+ + +---+---+ | amoxicillin-clavulanate | Given | 02/19/20 | 1 tablet | | | | (AUGMENTIN) 875-125 mg per tablet | | 20 4:15 | | | | | 1 tablet 1 tablet, Oral, 2 | | PM PDT | | | | | TIMES DAILY, First dose on Sat | | | | | | | 02/19/20 at 1445, Indications: | | | | | | | NON-PURULENT SKIN AND SOFT TISSUE | | | | | | | INFECTION | | | | | | + +-------+ + +---+---+ +---+---+ | | | +---+---+ + +---------+ +-----+-------+---+ | ampicillin-sulbactam (UNASYN) 3 | New Bag | 02/23/20 | 3 g | 200 | | | g in sodium chloride 0.9% 100 mL | | 20 8:16 | | mL/hr | | | IVPB 3 g, Intravenous, | | PM PDT | | | | | Administer over 30 Minutes, EVERY | | | | | | | 12 HOURS (2 times per day), | | | | | | | First dose on 02/20/20 at | | | | | | | 0900, Activate system and mix | | | | | | | before use., Indications: | | | | | | | PURULENT SKIN AND SOFT TISSUE | | | | | | | INFECTION | | | | | | + +---------+ +-----+-------+---+ +---------+ +-----+-------+---+ | New Bag | 02/23/20 | 3 g | 200 | | | | 20 9:20 | | mL/hr | | | | AM PDT | | | | +---------+ +-----+-------+---+ | New Bag | 02/22/20 | 3 g | 200 | | | | 20 10:02 | | mL/hr | | | | PM PDT | | | | +---------+ +-----+-------+---+ +---+---+ | | | +---+---+ + +---------+ +-----+-------+---+ | ampicillin-sulbactam (UNASYN) 3 | New Bag | 02/24/20 | 3 g | 200 | | | g in sodium chloride 0.9% 100 mL | | 20 9:34 | | mL/hr | | | IVPB 3 g, Intravenous, | | AM PDT | | | | | Administer over 30 Minutes, EVERY | | | | | | | 8 HOURS (3 times per day), First | | | | | | | dose (after last modification) | | | | | | | on [facility]of[facility] 02/24/20 at 0745, Activate | | | | | | | system and mix before use., | | | | | | | Indications: PURULENT SKIN AND | | | | | | | SOFT TISSUE INFECTION | | | | | | + +---------+ +-----+-------+---+ +---+---+ | | | +---+---+ + +-------+ +--------+---+---+ | apixaban (ELIQUIS) tablet 2.5 | Given | 02/21/20 | 2.5 mg | | | | mg 2.5 mg, Oral, 2 TIMES DAILY, | | 20 8:51 | | | | | First dose on Fri02/16/20 at 0900 | | AM PDT | | | | + +-------+ +--------+---+---+ +-------+ +--------+---+---+ | Given | 02/20/20 | 2.5 mg | | | | | 20 9:54 | | | | | | PM PDT | | | | +-------+ +--------+---+---+ | Given | 02/20/20 | 2.5 mg | | | | | 20 8:23 | | | | | | AM PDT | | | | +-------+ +--------+---+---+ +---+---+ | | | +---+---+ + +-------+ +--------+---+---+ | apixaban (ELIQUIS) tablet 2.5 | Given | 02/23/20 | 2.5 mg | | | | mg 2.5 mg, Oral, 2 TIMES DAILY, | | 20 8:17 | | | | | First dose on Fri02/22/20 at | | PM PDT | | | | | 2100, For 35 days | | | | | | + +-------+ +--------+---+---+ +-------+ +--------+---+---+ | Given | 02/23/20 | 2.5 mg | | | | | 20 9:21 | | | | | | AM PDT | | | | +-------+ +--------+---+---+ | Given | 02/22/20 | 2.5 mg | | | | | 20 9:58 | | | | | | PM PDT | | | | +-------+ +--------+---+---+ +---+---+ | | | +---+---+ + +-------+ +------+---+---+ | apixaban (ELIQUIS) tablet 5 mg | Given | 02/15/20 | 5 mg | | | | 5 mg, Oral, 2 TIMES DAILY, First | | 20 10:18 | | | | | dose (after last reorder) on Fri | | PM PDT | | | | | 02/11/20 at 1715, For 9 doses, | | | | | | | Treatment dose--adjusted for | | | | | | | weight and age, | | | | | | + +-------+ +------+---+---+ +-------+ +------+---+---+ | Given | 02/15/20 | 5 mg | | | | | 20 8:05 | | | | | | AM PDT | | | | +-------+ +------+---+---+ | Given | 02/14/20 | 5 mg | | | | | 20 9:24 | | | | | | PM PDT | | | | +-------+ +------+---+---+ +---+---+ | | | +---+---+ + +-------+ + +---+---+ | ascorbic acid (VITAMIN C) | Given | 02/23/20 | 1,000 mg | | | | tablet 1,000 mg 1,000 mg, Oral, | | 20 9:22 | | | | | DAILY, First dose on [facility] 02/10/20 | | AM PDT | | | | | at 0900 | | | | | | + +-------+ + +---+---+ +-------+ + +---+---+ | Given | 02/22/20 | 1,000 mg | | | | | 20 8:42 | | | | | | AM PDT | | | | +-------+ + +---+---+ | Given | 02/21/20 | 1,000 mg | | | | | 20 8:50 | | | | | | AM PDT | | | | +-------+ + +---+---+ +---+---+ | | | +---+---+ + +-------+ +-------+---+---+ | atorvaSTATin (LIPITOR) tablet | Given | 02/23/20 | 20 mg | | | | 20 mg 20 mg, Oral, NIGHTLY, | | 20 8:17 | | | | | First dose on Fri02/10/20 at 0245 | | PM PDT | | | | + +-------+ +-------+---+---+ +-------+ +-------+---+---+ | Given | 02/22/20 | 20 mg | | | | | 20 9:58 | | | | | | PM PDT | | | | +-------+ +-------+---+---+ | Given | 02/21/20 | 20 mg | | | | | 20 9:17 | | | | | | PM PDT | | | | +-------+ +-------+---+---+ +---+---+ | | | +---+---+ + +-------+ + +---+---+ | bacitracin topical ointment 1 | Given | 02/10/20 | 1 | | | | Application 1 Application, | | 20 10:07 | Applicat | | | | Topical, 3 TIMES DAILY, First | | PM PDT | ion | | | | dose on [facility] 02/10/20 at 0900, Apply | | | | | | | to: Other (Comment), Other | | | | | | | location: buttocks | | | | | | + +-------+ + +---+---+ +-------+ + +---+---+ | Given | 02/10/20 | 1 | | | | | 20 11:45 | Applicat | | | | | AM PDT | ion | | | +-------+ + +---+---+ +---+---+ | | | +---+---+ + +-------+ +--------+---+---+ | brimonidine (ALPHAGAN) 0.2% | Given | 02/23/20 | 1 drop | | | | ophthalmic solution 1 drop 1 | | 20 8:39 | | | | | drop, Both Eyes, 2 TIMES DAILY, | | PM PDT | | | | | First dose on [facility] 02/10/20 at 0245 | | | | | | + +-------+ +--------+---+---+ +-------+ +--------+---+---+ | Given | 02/23/20 | 1 drop | | | | | 20 9:29 | | | | | | AM PDT | | | | +-------+ +--------+---+---+ | Given | 02/22/20 | 1 drop | | | | | 20 10:10 | | | | | | PM PDT | | | | +-------+ +--------+---+---+ +---+---+ | | | +---+---+ + +-------+ +--------+---+---+ | budesonide (PULMICORT) | Given | 02/13/20 | 0.5 mg | | | | nebulizer solution 0.5 mg 0.5 | | 20 10:16 | | | | | mg, Nebulization, 2 TIMES DAILY, | | AM PDT | | | | | First dose on [facility] 02/10/20 at 0245, | | | | | | | RT will administer. Shake well. | | | | | | | Protect from light. Rinse mouth | | | | | | | after use., | | | | | | + +-------+ +--------+---+---+ +-------+ +--------+---+---+ | Given | 02/12/20 | 0.5 mg | | | | | 20 8:22 | | | | | | PM PDT | | | | +-------+ +--------+---+---+ | Given | 02/12/20 | 0.5 mg | | | | | 20 6:48 | | | | | | AM PDT | | | | +-------+ +--------+---+---+ +---+---+ | | | +---+---+ + +-------+ +--------+---+---+ | budesonide (PULMICORT) | Given | 02/24/20 | 0.5 mg | | | | nebulizer solution 0.5 mg 0.5 | | 20 7:52 | | | | | mg, Nebulization, RT BID, First | | AM PDT | | | | | dose (after last modification) on | | | | | | | 02/13/20 at 2100, Mix in with | | | | | | | Brovana. RT will administer. | | | | | | | Shake well. Protect from light. | | | | | | | Rinse mouth after use., | | | | | | + +-------+ +--------+---+---+ +-------+ +--------+---+---+ | Given | 02/23/20 | 0.5 mg | | | | | 20 8:47 | | | | | | PM PDT | | | | +-------+ +--------+---+---+ | Given | 02/23/20 | 0.5 mg | | | | | 20 8:14 | | | | | | AM PDT | | | | +-------+ +--------+---+---+ +---+---+ | | | +---+---+ + +-------+ +------+---+---+ | bumetanide (BUMEX) tablet 1 mg | Given | 02/23/20 | 1 mg | | | | 1 mg, Oral, 2 TIMES DAILY 0800 & | | 20 4:23 | | | | | 1600, First dose on 02/13/20 | | PM PDT | | | | | at 1600 | | | | | | + +-------+ +------+---+---+ +-------+ +------+---+---+ | Given | 02/23/20 | 1 mg | | | | | 20 9:21 | | | | | | AM PDT | | | | +-------+ +------+---+---+ | Given | 02/22/20 | 1 mg | | | | | 20 4:45 | | | | | | PM PDT | | | | +-------+ +------+---+---+ +---+---+ | | | +---+---+ + +-------+ + +---+---+ | calcium carbonate (TUMS) | Given | 02/17/20 | 1,000 mg | | | | chewable tablet 1,000 mg 1,000 | | 20 4:47 | | | | | mg, Oral, 2 TIMES DAILY PRN, | | PM PDT | | | | | Heartburn, Indigestion, Starting | | | | | | | [facility] 02/10/20 at 0219 | | | | | | + +-------+ + +---+---+ +---+---+ | | | +---+---+ + +-------+ +---------+---+---+ | carvedilol (COREG) tablet 6.25 | Given | 02/23/20 | 6.25 mg | | | | mg 6.25 mg, Oral, 2 TIMES DAILY | | 20 4:23 | | | | | WITH BREAKFAST & DINNER, First | | PM PDT | | | | | dose on [facility] 02/10/20 at 0800 | | | | | | + +-------+ +---------+---+---+ +-------+ +---------+---+---+ | Given | 02/23/20 | 6.25 mg | | | | | 20 9:21 | | | | | | AM PDT | | | | +-------+ +---------+---+---+ | Given | 02/22/20 | 6.25 mg | | | | | 20 4:44 | | | | | | PM PDT | | | | +-------+ +---------+---+---+ +---+---+ | | | +---+---+ + +-------+ +--------+---+---+ | cholecalciferol (VITAMIN D-3) | Given | 02/23/20 | 1,000 | | | | tablet 1,000 Units 1,000 Units, | | 20 9:21 | Units | | | | Oral, DAILY, First dose on [facility] | | AM PDT | | | | | 02/10/20 at 0900 | | | | | | + +-------+ +--------+---+---+ +-------+ +--------+---+---+ | Given | 02/22/20 | 1,000 | | | | | 20 8:42 | Units | | | | | AM PDT | | | | +-------+ +--------+---+---+ | Given | 02/21/20 | 1,000 | | | | | 20 8:50 | Units | | | | | AM PDT | | | | +-------+ +--------+---+---+ +---+---+ | | | +---+---+ + +-------+ +--------+---+---+ | clindamycin (CLEOCIN) capsule | Given | 02/16/20 | 300 mg | | | | 300 mg 300 mg, Oral, EVERY 6 | | 20 10:53 | | | | | HOURS (4 times per day), First | | AM PDT | | | | | dose on 02/13/20 at 1445, | | | | | | | Indications: Pressure Ulcer | | | | | | + +-------+ +--------+---+---+ +-------+ +--------+---+---+ | Given | 02/16/20 | 300 mg | | | | | 20 4:19 | | | | | | AM PDT | | | | +-------+ +--------+---+---+ | Given | 02/15/20 | 300 mg | | | | | 20 10:18 | | | | | | PM PDT | | | | +-------+ +--------+---+---+ +---+---+ | | | +---+---+ + +-------+ +---+---+---+ | collagenase (SANTYL) ointment | Given | 02/23/20 | | | | | Topical, 2 TIMES DAILY, First | | 20 8:26 | | | | | dose on 02/12/20 at 0915, Apply | | PM PDT | | | | | to: Sacrum/Coccyx | | | | | | + +-------+ +---+---+---+ +-------+ +---+---+---+ | Given | 02/23/20 | | | | | | 20 9:27 | | | | | | AM PDT | | | | +-------+ +---+---+---+ | Given | 02/22/20 | | | | | | 20 6:54 | | | | | | PM PDT | | | | +-------+ +---+---+---+ + +---+ | | | + +---+ | dextrose 10% (D10W) infusion | | | at 50 mL/hr, Intravenous, | | | CONTINUOUS PRN, hypoglycemia, | | | Starting [facility] 02/10/20 at 0219, | | | Start infusion if unable [...] | | | Low Blood Sugar, Starting [facility] | | | 02/10/20 at 0219, For blood glucose | | | 50-69 mg/dl - give 12.5 g For | | | blood glucose less than 50 mg/dl | | | - give 25 g, | | + +---+ | | | + +---+ + +-------+ +--------+---+---+ | dorzolamide (TRUSOPT) 2% | Given | 02/23/20 | 1 drop | | | | ophthalmic solution 1 drop 1 | | 20 8:32 | | | | | drop, Both Eyes, 2 TIMES DAILY, | | PM PDT | | | | | First dose on [facility] 02/10/20 at 0245 | | | | | | + +-------+ +--------+---+---+ +-------+ +--------+---+---+ | Given | 02/23/20 | 1 drop | | | | | 20 9:27 | | | | | | AM PDT | | | | +-------+ +--------+---+---+ | Given | 02/22/20 | 1 drop | | | | | 20 10:12 | | | | | | PM PDT | | | | +-------+ +--------+---+---+ +---+---+ | | | +---+---+ + +-------+ +--------+---+---+ | doxycycline (VIBRAMYCIN) tablet | Given | 02/15/20 | 100 mg | | | | 100 mg 100 mg, Oral, 2 TIMES | | 20 8:06 | | | | | DAILY, First dose on 02/13/20 | | AM PDT | | | | | at 2100, May take with food to | | | | | | | avoid GI upset. Administer with | | | | | | | at least 8 ounces of water and | | | | | | | have patient sit up for at least | | | | | | | 30 minutes., Indications: | | | | | | | Pressure Ulcer | | | | | | + +-------+ +--------+---+---+ +-------+ +--------+---+---+ | Given | 02/14/20 | 100 mg | | | | | 20 9:24 | | | | | | PM PDT | | | | +-------+ +--------+---+---+ | Given | 02/14/20 | 100 mg | | | | | 20 8:53 | | | | | | AM PDT | | | | +-------+ +--------+---+---+ +---+---+ | | | +---+---+ + +-------+ +-------+---+ + | enoxaparin (LOVENOX) 60 mg/0.6 | Given | 02/11/20 | 60 mg | | Abdomen- | | mL injection 60 mg 60 mg | | 20 1:43 | | | RLQ | | (rounded from 51.3 mg = 1 mg/kg | | AM PDT | | | | | | | | | | | | 51.3 kg), Subcutaneous, EVERY 12 | | | | | | | HOURS (2 times per day), First | | | | | | | dose on [facility] 02/10/20 at 0210 | | | | | | + +-------+ +-------+---+ + +-------+ +-------+---+ + | Given | 02/10/20 | 60 mg | | Abdomen- | | | 20 2:18 | | | LUQ | | | PM PDT | | | | +-------+ +-------+---+ + | Given | 02/10/20 | 60 mg | | Abdomen- | | | 20 3:55 | | | LLQ | | | AM PDT | | | | +-------+ +-------+---+ + +---+---+ | | | +---+---+ + +-------+ +-------+---+---+ | escitalopram (LEXAPRO) tablet | Given | 02/23/20 | 15 mg | | | | 15 mg 15 mg, Oral, DAILY, First | | 20 9:22 | | | | | dose on [facility] 02/10/20 at 0900 | | AM PDT | | | | + +-------+ +-------+---+---+ +-------+ +-------+---+---+ | Given | 02/22/20 | 15 mg | | | | | 20 8:37 | | | | | | AM PDT | | | | +-------+ +-------+---+---+ | Given | 02/21/20 | 15 mg | | | | | 20 8:49 | | | | | | AM PDT | | | | +-------+ +-------+---+---+ +---+---+ | | | +---+---+ + +-------+ +-------+---+---+ | famotidine (PEPCID) tablet 20 | Given | 02/23/20 | 20 mg | | | | mg 20 mg, Oral, NIGHTLY, First | | 20 8:17 | | | | | dose on [facility] 02/10/20 at 0400 | | PM PDT | | | | + +-------+ +-------+---+---+ +-------+ +-------+---+---+ | Given | 02/22/20 | 20 mg | | | | | 20 9:58 | | | | | | PM PDT | | | | +-------+ +-------+---+---+ | Given | 02/21/20 | 20 mg | | | | | 20 9:17 | | | | | | PM PDT | | | | +-------+ +-------+---+---+ +---+---+ | | | +---+---+ + +-------+ +--------+---+---+ | ferrous sulfate tablet 325 mg | Given | 02/23/20 | 325 mg | | | | 325 mg, Oral, DAILY WITH | | 20 9:21 | | | | | BREAKFAST, First dose on Fri | | AM PDT | | | | | 02/10/20 at 0800 | | | | | | + +-------+ +--------+---+---+ +-------+ +--------+---+---+ | Given | 02/22/20 | 325 mg | | | | | 20 8:41 | | | | | | AM PDT | | | | +-------+ +--------+---+---+ | Given | 02/21/20 | 325 mg | | | | | 20 8:50 | | | | | | AM PDT | | | | +-------+ +--------+---+---+ +---+---+ | | | +---+---+ + +-------+ +-------+---+---+ | furosemide (LASIX) tablet 20 mg | Given | 02/11/20 | 20 mg | | | | 20 mg, Oral, 2 TIMES DAILY, | | 20 9:34 | | | | | First dose on [facility] 02/10/20 at 0400 | | AM PDT | | | | + +-------+ +-------+---+---+ +-------+ +-------+---+---+ | Given | 02/10/20 | 20 mg | | | | | 20 10:00 | | | | | | PM PDT | | | | +-------+ +-------+---+---+ +---+---+ | | | +---+---+ + +-------+ +-------+---+---+ | furosemide (LASIX) tablet 20 mg | Given | 02/13/20 | 20 mg | | | | 20 mg, Oral, 2 TIMES DAILY 0800 | | 20 7:50 | | | | | & 1800, First dose (after last | | AM PDT | | | | | modification) on 02/12/20 at | | | | | | | 0800 | | | | | | + +-------+ +-------+---+---+ +-------+ +-------+---+---+ | Given | 02/12/20 | 20 mg | | | | | 20 5:11 | | | | | | PM PDT | | | | +-------+ +-------+---+---+ | Given | 02/12/20 | 20 mg | | | | | 20 7:53 | | | | | | AM PDT | | | | +-------+ +-------+---+---+ +---+---+ | | | +---+---+ + +-------+ +-------+---+---+ | furosemide (LASIX) tablet 20 mg | Given | 02/17/20 | 20 mg | | | | 20 mg, Oral, DAILY, First dose | | 20 8:36 | | | | | on [facility] 02/17/20 at 0900 | | AM PDT | | | | + +-------+ +-------+---+---+ +---+---+ | | | +---+---+ + +-------+ +-------+---+---+ | furosemide (LASIX) tablet 40 mg | Given | 02/11/20 | 40 mg | | | | 40 mg, Oral, ONCE, 02/11/20 | | 20 5:30 | | | | | at 1700, For 1 dose | | PM PDT | | | | + +-------+ +-------+---+---+ +---+---+ | | | +---+---+ + +-------+ + +---+---+ | HYDROcodone-acetaminophen | Given | 02/16/20 | 1 tablet | | | | (NORCO) 5-325 mg per tablet 1 | | 20 10:53 | | | | | tablet 1 tablet, Oral, EVERY 6 | | AM PDT | | | | | HOURS PRN, Pain, Starting [facility] | | | | | | | 02/10/20 at 1132 | | | | | | + +-------+ + +---+---+ +-------+ + +---+---+ | Given | 02/16/20 | 1 tablet | | | | | 20 4:19 | | | | | | AM PDT | | | | +-------+ + +---+---+ | Given | 02/15/20 | 1 tablet | | | | | 20 10:27 | | | | | | PM PDT | | | | +-------+ + +---+---+ +---+---+ | | | +---+---+ + +-------+ + +---+---+ | HYDROcodone-acetaminophen | Given | 02/24/20 | 1 tablet | | | | (NORCO) 5-325 mg per tablet 1-2 | | 20 9:45 | | | | | tablet 1-2 tablet, Oral, EVERY 6 | | AM PDT | | | | | HOURS PRN, Pain, Starting Wed | | | | | | | 02/16/20 at 1546 | | | | | | + +-------+ + +---+---+ +-------+ + +---+---+ | Given | 02/23/20 | 1 tablet | | | | | 20 4:23 | | | | | | PM PDT | | | | +-------+ + +---+---+ | Given | 02/23/20 | 1 tablet | | | | | 20 9:20 | | | | | | AM PDT | | | | +-------+ + +---+---+ +---+---+ | | | +---+---+ + +-------+ +---------+---+ + | insulin lispro (humaLOG | Given | 02/23/20 | 1 Units | | Abdomen- | | KWIKPEN) injection (pen) 0-6 | | 20 4:39 | | | RUQ | | Units 0-6 Units, Subcutaneous, 4 | | PM PDT | | | | | TIMES DAILY WITH MEALS & | | | | | | | NIGHTLY, First dose on [facility] 02/10/20 | | | | | | | at 0800, CORRECTION SCALE: | | | | | | | Blood Glucose (BG) < 150: | | | | | | | None BG 150-200: DAY: 1 | | | | | | | units. NIGHT: 0 units BG | | | | | | | 201-250: DAY: 2 units. NIGHT: 1 | | | | | | | units BG 251-300: DAY: 3 units. | | | | | | | NIGHT: 2 units BG 301-350: | | | | | | | DAY: 4 units. NIGHT: 3 units | | | | | | | BG 351-400: DAY: 5 units. NIGHT: | | | | | | | 4 units BG > 400 : DAY: | | | | | | | 6 units. NIGHT: 5 units | | | | | | | AND CALL | | | | | | | PROVIDER Use DAY DOSE for doses | | | | | | | scheduled: AC, NPO, Daytime | | | | | | | [phone] Use NIGHT DOSE for | | | | | | | doses scheduled: HS, | | | | | | | Nighttime [id number] If the BG is | | | | | | | not checked before the patient | | | | | | | starts eating, do not give | | | | | | | correction insulin., | | | | | | + +-------+ +---------+---+ + +-------+ +---------+---+ + | Given | 02/22/20 | 1 Units | | Abdomen- | | | 20 11:55 | | | LUQ | | | AM PDT | | | | +-------+ +---------+---+ + | Given | 02/21/20 | 1 Units | | Abdomen- | | | 20 9:21 | | | LLQ | | | PM PDT | | | | +-------+ +---------+---+ + +---+---+ | | | +---+---+ + +-------+ +---------+---+---+ | lactobacillus GG (CULTURELLE) | Given | 02/23/20 | 1 | | | | capsule 1 capsule 1 capsule, | | 20 8:17 | capsule | | | | Oral, 2 TIMES DAILY, First dose | | PM PDT | | | | | on [facility] 02/10/20 at 0245, Do not | | | | | | | open or crush., | | | | | | + +-------+ +---------+---+---+ +-------+ +---------+---+---+ | Given | 02/23/20 | 1 | | | | | 20 9:21 | capsule | | | | | AM PDT | | | | +-------+ +---------+---+---+ | Given | 02/22/20 | 1 | | | | | 20 9:58 | capsule | | | | | PM PDT | | | | +-------+ +---------+---+---+ +---+---+ | | | +---+---+ + +-------+ +--------+---+---+ | latanoprost (XALATAN) 0.005% | Given | 02/23/20 | 1 drop | | | | ophthalmic solution 1 drop 1 | | 20 8:21 | | | | | drop, Both Eyes, NIGHTLY, First | | PM PDT | | | | | dose on [facility] 02/10/20 at 0400 | | | | | | + +-------+ +--------+---+---+ +-------+ +--------+---+---+ | Given | 02/22/20 | 1 drop | | | | | 20 10:11 | | | | | | PM PDT | | | | +-------+ +--------+---+---+ | Given | 02/21/20 | 1 drop | | | | | 20 9:15 | | | | | | PM PDT | | | | +-------+ +--------+---+---+ +---+---+ | | | +---+---+ + +-------+ +--------+---+---+ | LORazepam (ATIVAN) tablet 0.5 | Given | 02/17/20 | 0.5 mg | | | | mg 0.5 mg, Oral, ONCE, Fri | | 20 2:46 | | | | | 02/17/20 at 1400, For 1 dose | | PM PDT | | | | + +-------+ +--------+---+---+ + +---+ | | | + +---+ | LORazepam (ATIVAN) tablet 0.5 | | | mg 0.5 mg, Oral, EVERY 8 HOURS | | | PRN, Anxiety, Starting Fri | | | 02/18/20 at 0908 | | + +---+ | | | + +---+ + +-------+ +------+---+---+ | melatonin tablet 3 mg 3 mg, | Given | 02/22/20 | 3 mg | | | | Oral, NIGHTLY PRN, Insomnia, | | 20 9:58 | | | | | Starting [facility] 02/10/20 at 0219 | | PM PDT | | | | + +-------+ +------+---+---+ +---+---+ | | | +---+---+ + +---------+ +--------+-------+---+ | meropenem (MERREM) 500 mg in | New Bag | 02/13/20 | 500 mg | 100 | | | sodium chloride 0.9% 50 mL IVPB | | 20 12:56 | | mL/hr | | | 500 mg, Intravenous, Administer | | AM PDT | | | | | over 30 Minutes, EVERY 8 HOURS (3 | | | | | | | times per day), First dose on | | | | | | | Fri02/11/20 at 1815, Activate | | | | | | | system and mix before use., | | | | | | | 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 | | | | | | + +---------+ +--------+-------+---+ +---------+ +--------+-------+---+ | New Bag | 02/12/20 | 500 mg | 100 | | | | 20 5:54 | | mL/hr | | | | PM PDT | | | | +---------+ +--------+-------+---+ | New Bag | 02/12/20 | 500 mg | 100 | | | | 20 9:37 | | mL/hr | | | | AM PDT | | | | +---------+ +--------+-------+---+ +---+---+ | | | +---+---+ + +-------+ +---+---+---+ | nystatin (MYCOSTATIN) cream | Given | 02/23/20 | | | | | Topical, 2 TIMES DAILY, First | | 20 8:37 | | | | | dose on Fri02/16/20 at 2100, | | PM PDT | | | | | Apply to: Sacrum/Coccyx | | | | | | + +-------+ +---+---+---+ +-------+ +---+---+---+ | Given | 02/23/20 | | | | | | 20 9:27 | | | | | | AM PDT | | | | +-------+ +---+---+---+ | Given | 02/22/20 | | | | | | 20 8:49 | | | | | | AM PDT | | | | +-------+ +---+---+---+ +---+---+ | | | +---+---+ + +-------+ +-------+---+---+ | pantoprazole (PROTONIX) DR | Given | 02/24/20 | 40 mg | | | | tablet 40 mg 40 mg, Oral, DAILY | | 20 6:21 | | | | | BEFORE BREAKFAST, First dose on | | AM PDT | | | | | [facility] 02/10/20 at 0730, Do not cut or | | | | | | | crush., Indication: GERD | | | | | | + +-------+ +-------+---+---+ +-------+ +-------+---+---+ | Given | 02/23/20 | 40 mg | | | | | 20 7:00 | | | | | | AM PDT | | | | +-------+ +-------+---+---+ | Given | 02/22/20 | 40 mg | | | | | 20 6:30 | | | | | | AM PDT | | | | +-------+ +-------+---+---+ +---+---+ | | | +---+---+ + +-------+ +--------+---+---+ | Patient own medication - | Given | 02/24/20 | 15 mcg | | | | Brovana 15 mcg/2 mL nebulizer 15 | | 20 10:08 | | | | | mcg, Nebulization, RT BID, First | | AM PDT | | | | | dose (after last reorder) on Sun | | | | | | | 02/13/20 at 2100, Mix Brovana 15 | | | | | | | mcg (2 mL) in with budesonide, , | | | | | | | PT's OWN MED. In Lock Box. Do | | | | | | | NOT store in [employer] Patient | | | | | | | Specific Bin. RETURN TO PATIENT | | | | | | | AT DISCHARGE. Verified Brovana #[id number] | | | | | | | vials by Pharmacist Shaji Giles | | | | | | | Aaron, Pharmaceutical Analyst | | | | | | | 02/13/2020, , , Generic Name: | | | | | | | Brovana 15 mcg/2 ml dose is 15 | | | | | | | mcg (2 ml) per nebulizer bid (mix | | | | | | | in with budesonide), Length of | | | | | | | Therapy: Indefinite, Reason for | | | | | | | Non-Formulary: jail medicine | | | | | | + +-------+ +--------+---+---+ +-------+ +--------+---+---+ | Given | 02/23/20 | 15 mcg | | | | | 20 8:47 | | | | | | PM PDT | | | | +-------+ +--------+---+---+ | Given | 02/23/20 | 15 mcg | | | | | 20 8:14 | | | | | | AM PDT | | | | +-------+ +--------+---+---+ +---+---+ | | | +---+---+ + +-------+ +---------+---+---+ | polyvinyl alcohol (LIQUITEARS) | Given | 02/23/20 | 2 drops | | | | 1.4% ophthalmic solution 2 drop | | 20 9:29 | | | | | 2 drop, Both Eyes, EVERY MORNING, | | AM PDT | | | | | First dose on [facility] 02/10/20 at 0900 | | | | | | + +-------+ +---------+---+---+ +-------+ +---------+---+---+ | Given | 02/22/20 | 2 drops | | | | | 20 8:48 | | | | | | AM PDT | | | | +-------+ +---------+---+---+ | Given | 02/21/20 | 2 drops | | | | | 20 8:44 | | | | | | AM PDT | | | | +-------+ +---------+---+---+ +---+---+ | | | +---+---+ + +-------+ +-------+---+---+ | predniSONE (DELTASONE) tablet | Given | 02/13/20 | 10 mg | | | | 10 mg 10 mg, Oral, DAILY, First | | 20 8:06 | | | | | dose on [facility] 02/10/20 at 0900 | | AM PDT | | | | + +-------+ +-------+---+---+ +-------+ +-------+---+---+ | Given | 02/12/20 | 10 mg | | | | | 20 8:13 | | | | | | AM PDT | | | | +-------+ +-------+---+---+ | Given | 02/11/20 | 10 mg | | | | | 20 9:35 | | | | | | AM PDT | | | | +-------+ +-------+---+---+ +---+---+ | | | +---+---+ + +-------+ +-------+---+---+ | predniSONE (DELTASONE) tablet | Given | 02/17/20 | 10 mg | | | | 10 mg 10 mg, Oral, 2 TIMES DAILY | | 20 8:33 | | | | | 0800 & 1600, First dose (after | | AM PDT | | | | | last modification) on [place] 02/13/20 | | | | | | | at 1700 | | | | | | + +-------+ +-------+---+---+ +-------+ +-------+---+---+ | Given | 02/16/20 | 10 mg | | | | | 20 4:37 | | | | | | PM PDT | | | | +-------+ +-------+---+---+ | Given | 02/16/20 | 10 mg | | | | | 20 8:43 | | | | | | AM PDT | | | | +-------+ +-------+---+---+ +---+---+ | | | +---+---+ + +-------+ +-------+---+---+ | predniSONE (DELTASONE) tablet | Given | 02/23/20 | 10 mg | | | | 10 mg 10 mg, Oral, DAILY, First | | 20 9:21 | | | | | dose (after last modification) on | | AM PDT | | | | | 02/18/20 at 0900 | | | | | | + +-------+ +-------+---+---+ +-------+ +-------+---+---+ | Given | 02/22/20 | 10 mg | | | | | 20 8:42 | | | | | | AM PDT | | | | +-------+ +-------+---+---+ | Given | 02/21/20 | 10 mg | | | | | 20 8:51 | | | | | | AM PDT | | | | +-------+ +-------+---+---+ +---+---+ | | | +---+---+ + +-------+ +--------+---+---+ | senna (SENOKOT) tablet 8.6 mg | Given | 02/13/20 | 8.6 mg | | | | 8.6 mg, Oral, 2 TIMES DAILY PRN, | | 20 8:50 | | | | | Constipation, Starting [facility] 02/10/20 | | PM PDT | | | | | at 0219 | | | | | | + +-------+ +--------+---+---+ +---+---+ | | | +---+---+ + +-------+ + +---+---+ | sulfamethoxazole-trimethoprim | Given | 02/13/20 | 1 tablet | | | | (BACTRIM DS) 800-160 mg per | | 20 8:05 | | | | | tablet 1 tablet 1 tablet, Oral, | | AM PDT | | | | | 2 TIMES DAILY, First dose on [facility] | | | | | | | 02/10/20 at 0900, Indications: | | | | | | | NON-PURULENT SKIN AND SOFT TISSUE | | | | | | | INFECTION | | | | | | + +-------+ + +---+---+ +-------+ + +---+---+ | Given | 02/12/20 | 1 tablet | | | | | 20 8:06 | | | | | | PM PDT | | | | +-------+ + +---+---+ | Given | 02/12/20 | 1 tablet | | | | | 20 8:13 | | | | | | AM PDT | | | | +-------+ + +---+---+ +---+---+ | | | +---+---+ + +-------+ + +---+---+ | sulfamethoxazole-trimethoprim | Given | 02/20/20 | 1 tablet | | | | (BACTRIM DS) 800-160 mg per | | 20 8:23 | | | | | tablet 1 tablet 1 tablet, Oral, | | AM PDT | | | | | 2 TIMES DAILY, First dose on Fri | | | | | | | 02/15/20 at 2100, Indications: | | | | | | | Infection | | | | | | + +-------+ + +---+---+ +-------+ + +---+---+ | Given | 02/19/20 | 1 tablet | | | | | 20 8:00 | | | | | | PM PDT | | | | +-------+ + +---+---+ | Given | 02/19/20 | 1 tablet | | | | | 20 8:53 | | | | | | AM PDT | | | | +-------+ + +---+---+ +---+---+ | | | +---+---+ + +-------+ + +---+---+ | sulfamethoxazole-trimethoprim | Given | 02/21/20 | 1 tablet | | | | (BACTRIM DS) 800-160 mg per | | 20 8:50 | | | | | tablet 1 tablet 1 tablet, Oral, | | AM PDT | | | | | DAILY, First dose (after last | | | | | | | modification) on [facility] 02/21/20 at | | | | | | | 0900, Indications: Infection | | | | | | + +-------+ + +---+---+ +---+---+ | | | +---+---+ + +-------+ + +---+---+ | sulfamethoxazole-trimethoprim | Given | 02/24/20 | 1 tablet | | | | (BACTRIM DS) 800-160 mg per | | 20 9:46 | | | | | tablet 1 tablet 1 tablet, Oral, | | AM PDT | | | | | 2 TIMES DAILY, First dose (after | | | | | | | last modification) on [facility] 02/24/20 | | | | | | | at 0900, Indications: Infection | | | | | | + +-------+ + +---+---+ +---+---+ | | | +---+---+ + +-------+ +---------+---+---+ | sulfamethoxazole-trimethoprim | Given | 02/23/20 | 2 | | | | (BACTRIM DS) 800-160 mg per | | 20 9:22 | tablets | | | | tablet 2 tablet 2 tablet, Oral, | | AM PDT | | | | | DAILY, First dose (after last | | | | | | | modification) on Fri02/22/20 at | | | | | | | 0900, Indications: Infection | | | | | | + +-------+ +---------+---+---+ +-------+ +---------+---+---+ | Given | 02/22/20 | 2 | | | | | 20 8:41 | tablets | | | | | AM PDT | | | | +-------+ +---------+---+---+ + +---+ | | | + +---+ | traZODone (DESYREL) tablet 50 | | | mg 50 mg, Oral, NIGHTLY PRN, | | | Insomnia, Starting Zofia 02/17/20 at | | | 1322 | | + +---+ | | [...]
--- OUTSIDE RECORDS SUMMARY | ~2020-03-14 | XMS | Encounter Summary ---
Demographics + + + | Address | [address] | | | [place] [address] | + + + | Home Phone [...] Team Providers + +------+ + | Care Order Processing Manager Name | Role | Phone | + +------+ + | Candido Link | PCP | | | MD | | | + +------+ + Encounter Details +--------+ + + + + | Date | Type | Department | Care Team | Description | +--------+ + + + + | 10/29/ | Home Care | [facility] [place] | Emily Reynolds, PT | CASE COMMUNICATION | | 2019 | Visit | [place] [address] | | | | | | ST [place] | | | | | | [address] | | | | | | [phone] | | | +--------+ + + + [...] [place] | | | | | | [address] | | | | | | | | +--------+ + + + + | 04/11/ | Appointment | Radiology | Shawn Michael | | | 2019 | | | MD Marcelino [address] | | | | | | [address] [place] | | | | | | [place] [address] | | | | | | [phone] | | | | | | | | +--------+ + + + + | 04/13/ | Office | Cardiology | Shawn Michael | | | 2019 | Visit | | MD [address] | | | | | | [address] [place] | | | | | | [place] [address] | | | | | | [phone] | | | | | | | [...]
--- OUTSIDE RECORDS SUMMARY | ~2020-03-14 | XMS | Encounter Summary ---
Demographics + + + | Address | [address] | | | [place] [address] | + + + | Home Phone [...] Team Providers + +------+ + | Care Organizational Research Consultant Name | Role | Phone | + [...] | | | [address] [place] | [place] [address] | | | | | [place] [address] | | | | | | [phone] | | | +--------+ + + + [...] | | 2019 | Visit | | UNDERWRITING SUPPORT MANAGER [address] | | | | | | [place] | | | | | | [address] | | | | | | | | +--------+ + + + + | 04/11/ | Appointment | Radiology | Shawn Michael | | | 2019 | | | MD [address] | | | | | | [address] [place] | | | | | | [place], [place] [address] | | | | | | [phone] | | | | | | | | +--------+ + + + + | 04/13/ | Office | Cardiology | Shawn Michael | | 2019 | Visit | | MD [address] | | | | | | [address] [place] | | | | | | [place] [address] | | | | | | [phone] | | | | | | | | +--------+ + + + + documented as of this encounter Procedures + +--------+ + + + | Procedure Name | Priori | Date/Time | Associated Diagnosis | Comments | | | ty | | | | + +--------+ + + + | CT ABDOMEN PELVIS W | Routin | 07/17/2018 | | Results for this | | CONTRAST | e | 12:00 AM | | procedure are in the | | | | PDT | | results section. | + +--------+ + + + documented in this encounter Results CT Abdomen Pelvis w Contrast (07/17/2018 12:00 AM PDT) + + | Specimen [...]
--- OUTSIDE RECORDS SUMMARY | ~2020-03-14 | XMS | Encounter Summary ---
Demographics + + + | Address | [address] | | | [place] [address] | + + + | Home Phone [...] Team Providers + +------+ + | Care Special Warfare Operator Name | Role | Phone | [...] | | | [address] [place] | [facility] [place] [address] | | | | | [place] [address] | | | | | | [phone] | | | +--------+ + + + [...] | 2019 | Visit | | DIRECTOR TREASURER [address] | | | | | | [place] | | | | | | [address] | | | | | | | | +--------+ + + + + | 04/11/ | Appointment | Radiology | Shawn Michael | | | 2019 | | | MD [address] | | | | | | [address] [place] | | | | | | [place], [place] [address] | | | | | | [phone] | | | | | | | | +--------+ + + + + | 04/13/ | Office | Cardiology | Shawn Michael | | 2019 | Visit | | MD [address] | | | | | | [address] [place] | | | | | | [place] [address] | | | | | | [phone] | | | | | | | [...]
--- OUTSIDE RECORDS SUMMARY | ~2020-03-14 | XMS | Encounter Summary ---
Demographics + + + | Address | [address] | | | [place] [address] | + + + | Home Phone | | + + + | Preferred Language | Unknown | + + + | Marital Status | | + + + | Amish Affiliation | Unknown | + + + [...] Team Providers + +------+ + | Care Onion Farmer Name | Role | Phone | + [...] 10/08/ | Home Care | [facility] [place] | Timothy, | CASE COMMUNICATION | | 2020 | Visit | [place] [address] | Tania Garcia CNA | | | | | ST [place] | | | | | | [address] | | | | | | [phone] | | | +--------+ + + + [...] [place] | | | | | | [address] | | | | | | | | +--------+ + + + + | 04/11/ | Appointment | Radiology | Shawn Michael | | | 2019 | | | MD Marcelino [address] | | | | | | [address] | | | | | | [place] [address] | | | | | | [phone] | | | | | | | | +--------+ + + + + | 04/13/ | Office | Cardiology | Shawn Michael | | | 2020 | Visit | | MD Marcelino [address] | | | | | | [address] | | | | | | [place] [address] | | | | | | [phone] | | | | | | | [...]
--- OUTSIDE RECORDS SUMMARY | ~2020-03-14 | XMS | Encounter Summary ---
Demographics + + + | Address | [address] | | | [place] [address] | + + + | Home Phone [...] Team Providers + +------+ + | Care Precision Aircraft Structure Assembler Name | Role | Phone | + [...] | blood loss | [address] | [place] [address] | | | | | (chronic) | [place], | Phone: | | | | | Gastrointest | [place] | [phone] | | | | | inal | [address] | Fax: | | | | | hemorrhage, | Phone: | [phone] | | | | | unspecified | [phone] | | | | | | gastrointest | Fax: | | | | | | inal | [phone] | | | | | | hemorrhage | | | | | | | type | | | | | | | Procedures | | | | | | | SCREEN PRINTING LOADER UNLOADER OFFICE | | | | | | [...] + + | 03/13/ | Virtual | [facility] | Yana-Lani, | 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[address], [place]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[place] [address] | (chronic); | | | | [address] | [phone] | Gastrointestinal | | | | [phone] | | hemorrhage, | | | | | John Grimes, | unspecified | | | | | [address] | gastrointestinal | | | | | [place] | hemorrhage type | | | | | [address] | | | | | | | [...] [place] | | | | | | [address] | | | | | | | | +--------+ + + + + | 04/11/ | Appointment | Radiology | Shawn Michael | | 2019 | | | MD Marcelino [address] | | | | | | [address] | | | | | | [place] [address] | | | | | | [phone] | | | | | | | | +--------+ + + + + | 04/13/ | Office | Cardiology | Shawn Michael | | | 2020 | Visit | | MD Marcelino [address] | | | | | | [address] [place] | | | | | | [place] [address] | | | | | | [phone] | | | | | | | [...]
--- OUTSIDE RECORDS SUMMARY | ~2020-03-14 | XMS | Encounter Summary ---
Demographics + + + | Address | [address] | | | [place] [address] | + + + | Home Phone [...] Team Providers + +------+ + | Care Printed Circuit Board Panels Developer Name | Role | Phone | [...] [place] | | | | | | [address] | | | | | | [phone] | | | +--------+ + + + [...] [place] | | | | | | [id number] | | | | | | | | +--------+ + + + + | 04/11/ | Appointment | Radiology | hSawn Michael | | 2019 | | | MD Marcelino [address] | | | | | | [address] | | | | | | [place] [address] | | | | | | [phone] | | | | | | | | +--------+ + + + + | 04/13/ | Office | Cardiology | Julieta Michaelr | | | 2019 | Visit | | MD Marcelino [address] | | | | | | [address] [place] | | | | | | [place] [address] | | | | | | [phone] | | | | | | | [...] Plan + + | Visit Type - BRAIN WAVE TECHNICIAN - REPEAT VISIT | | Discipline - [...] + + | HH Aide Need | BRAIN WAVE TECHNICIAN services | | | 1 goal | [...] | | | | | | | Machine Mover, | | | | | | | [...]
--- OUTSIDE RECORDS SUMMARY | ~2020-03-14 | XMS | Encounter Summary ---
Demographics + + + | Address | [address] | | | [place] [address] | + + + | Home Phone [...] Team Providers + +------+ + | Care Clearing Supervisor Name | Role | Phone | [...] + + | 02/28/ | Telephone | [facility] [place] | Janel, | Care Coordination | | 2020 | | [facility] | Brittany Schulz RN | | | | | [address] | | | | | | [address] [place] | | | | | | [place] [address] | | | | | | [phone] | | | +--------+ + + + [...] | | 2019 | Visit | | PERFORMANCE IMPROVEMENT CONSULTANT [address] | | | | | | [place] | | | | | | [address] | | | | | | | | +--------+ + + + + | 04/11/ | Appointment | Radiology | Shawn Michael | | 2019 | | | MD [address] | | | | | | [address] [place] | | | | | | [place] [address] | | | | | | [phone] | | | | | | | | +--------+ + + + + | 04/13/ | Office | Cardiology | Shawn Michael | | 2019 | Visit | | MD [address] | | | | | | [address] [place] | | | | | | [place] [address] | | | | | | [phone] | | | | | | | [...]
--- OUTSIDE RECORDS SUMMARY | ~2020-03-14 | XMS | Encounter Summary ---
Demographics + + + | Address | [address] | | | [place] [address] | + + + | Home Phone [...] Team Providers + +------+ + | Care Service Aide Name | Role | Phone | + [...] + + | 08/16/ | Telephone | [facility] | Martine Gaitan, | Other | | 2019 | | [facility] | [address] | | | | | [address] | [place] | | | | | [place] | [address] | | | | | [address] | | | | | | [phone] | | | +--------+ + + + [...] | | 2020 | Visit | | UPPER AND BOTTOM LACER HAND [address] | | | | | | [place] | | | | | | [address] | | | | | | | | +--------+ + + + + | 04/11/ | Appointment | Radiology | Shawn Michael | | | 2019 | | | MD [address] | | | | | | [address] [place] | | | | | | [place] [address] | | | | | | [phone] | | | | | | | | +--------+ + + + + | 04/13/ | Office | Cardiology | Shawn Michael | | 2019 | Visit | | MD [address] | | | | | | [address] [place] | | | | | | [place] [address] | | | | | | [phone] | | | | | | | [...]
--- OUTSIDE RECORDS SUMMARY | ~2020-03-14 | XMS | Encounter Summary ---
Demographics + + + | Address | [address] | | | [place] [address] | + + + | Home Phone [...] Team Providers + +------+ + | Care Payroll Director Name | Role | Phone | [...] | | | | [place] | | | | | | [address] | | | | | | [phone] | | | +--------+ + + + [...] | | 2019 | Visit | | CORPORATE COMPLIANCE DIRECTOR [address] | | | | | | [place] | | | | | | [address] | | | | | | | | +--------+ + + + + | 04/11/ | Appointment | Radiology | Shawn Michael | | | 2019 | | | MD Myn[address] | | | | | | [address] [place] | | | | | | [place] [address] | | | | | | [phone] | | | | | | | | +--------+ + + + + | 04/13/ | Office | Cardiology | Shawn Michael | | | 2019 | Visit | | MD [address] | | | | | | [address] [place] | | | | | | [place], [place] [address] | | | | | | [phone] | | | | | | | [...]
--- OUTSIDE RECORDS SUMMARY | ~2020-03-14 | XMS | Encounter Summary ---
Demographics + + + | Address | [address] | | | [place] [address] | + + + | Home Phone [...] Team Providers + +------+ + | Care Transport Analyst Name | Role | Phone | [...] + + | 03/02/ | Telephone | [facility] [place] | Shikha Peace, | Referral (Follow up) | | 2020 | | [place] [address] | [place] | | | | | [place] | | | | | | [address] | | | | | | [phone] | | | +--------+ + + + [...] | | 2019 | Visit | | CPR AMBULANCE DRIVER [address] | | | | | | [place] | | | | | | [address] | | | | | | | | +--------+ + + + + | 04/11/ | Appointment | Radiology | Shawn Michael | | | 2019 | | | MD Myn[address] | | | | | | [address] [place] | | | | | | [place] [address] | | | | | | [phone] | | | | | | | | +--------+ + + + + | 04/13/ | Office | Cardiology | Shawn Michael | | | 2019 | Visit | | MD [address] | | | | | | [address] [place] | | | | | | [place], [place] [address] | | | | | | [phone] | | | | | | | [...]
--- OUTSIDE RECORDS SUMMARY | ~2020-03-14 | XMS | Encounter Summary ---
Demographics + + + | Address | [address] | | | [place] [address] | + + + | Home Phone [...] Providers + +------+ + | Care Director Dietetics Department Name | Role | Phone | + [...] | +--------+ + + + + | 10/01/ | Home Care | [facility] [place] | Annie Kyle, | OT REPEAT VISIT | | 2018 | Visit | [place] [address] | [place] | | | | | ST [place] | | | | | | [address] | | | | | | [phone] | | | +--------+ + + + [...] + + + | Blood Pressure | 113/71 | 10/01/2019 2:39 PM | | | | | PST | | + + + + + | Pulse | 85 | 10/01/2019 2:39 PM | | | | | PST | | + + + + + | Temperature | 36.3 C (97.4 F) | 10/01/2019 2:39 PM | | | | | PST | | + + + + + | Respiratory Rate | - | - | | + + + + + | Oxygen Saturation | 98% | 10/01/2019 2:39 PM | on 3L supplemental | | | | PST | O2 | + + + + + | [...] [place] | | | | | | [address] | | | | | | | | +--------+ + + + + | 04/11/ | Appointment | Radiology | Shawn Michael | | 2019 | | | MD Marcelino [address] | | | | | | [address] | | | | | | [place] [address] | | | | | | [phone] | | | | | | | | +--------+ + + + + | 04/13/ | Office | Cardiology | Shawn Michael | | | 2020 | Visit | | MD Marcelino [address] | | | | | | [address] | | | | | | [place] [address] | | | | | | [phone] | | | | | | | [...] + +--------+--------+ + + | HH OT FINE MOTOR | Fine motor | | | 1 goal | | | COORDINATION | exercises | 09/15/ | Active | linked to | | | DEFICITS | | 2019 | | scheduled/d | | | Disciplines: | | | | ocumented | | | Occupational Therapy | | | | interventio | | | | | | | n | | + + +--------+--------+ + + + + +--------+-------+ + | Goal | Associated Problem | Outcom | Goal | Visit Notes | | | | e | Met? | | + + +--------+-------+ + | HH OT FINE MOTOR | HH OT FINE MOTOR | | No | Today's intervention | | COORDINATION | COORDINATION | Ongoin | | involved therapeutic | | DEFICITS | DEFICITS | g, | | activity with focus on | | | | progre | | fine motor control | | | | ssing | | including reaching, | | | | | | manipulating, attending, | | | | | | novelty for cognitive | | | | | | stimulation. Patient | | | | | | became very involved in | | | | | | the activity and | | | | | | treatment ended with her | | | | | | exhibiting a more | | | | | | animated and cheerful | | | | | | demeanor. | + + +--------+-------+ + documented in this encounter"
--- OUTSIDE RECORDS SUMMARY | ~2020-03-14 | XMS | Encounter Summary ---
Demographics + + + | Address | [address] | | | [place] [address] | + + + | Home Phone [...] Team Providers + +------+ + | Care Electrical Engineering Designer Name | Role | Phone | [...] [place] | | | | | | [address] | | | | | | [phone] | | | +--------+ + + + [...] | | | | | [place] [address] | | | | | | [phone] | | | | | | | | +--------+ + + + + | 04/13/ | Office | Cardiology | Shawn Michael | | | 2019 | Visit | | MD Marcelino [address] | | | | | | [address] [place] | | | | | | [place] [address] | | | | | | [phone] | | | | | | | [...] - REPEAT VISIT | | Discipline - [facility] | + + + + +--------+--------+ + [...] 2018 | | | interventio | | [facility] | infusion. | | | | ns [...] | linked to | interventio | | [facility] | | 019 | | scheduled/d | [...] Active | linked to | | | [facility] | | 2019 | | scheduled/d | [...] | linked to | interventio | | [facility] | | 2019 | | scheduled/d | [...] | | scheduled/d | ns | | [facility] | | | | ocumented | scheduled/d [...] 08/28/ | Active | | | | [facility] | | 2018 | | | interventio [...] | linked to | interventio | | [facility] | CHRONIC OXYGEN USE | 2019 | [...] | linked to | interventio | | [facility] | | 019 | | scheduled/d | [...] | | | | as presented in [facility] | | | | | | Pt [...] report to RN/MD . The | | [facility] teaching | | | | patient [...]
--- OUTSIDE RECORDS SUMMARY | ~2020-03-14 | XMS | Encounter Summary ---
Demographics + + + | Address | [address] | | | [place] [address] | + + + | Home Phone [...] Team Providers + +------+ + | Care Stencil Sprayer Name | Role | Phone | + [...] + + + + | 11/18/ | Telephone | [facility] | Janel, | Care Coordination | | 2020 | | [facility] [place] | Brittany Schulz RN | | | | | [address] | | | | | | [place] | | | | | | [address] | | | | | | [phone] | | | +--------+ + + + [...] | | 2019 | Visit | | CASHIER ASSISTANT [address] | | | | | | [place] | | | | | | [address] | | | | | | | | +--------+ + + + + | 04/11/ | Appointment | Radiology | Shawn Michael | | 2019 | | | MD [address] | | | | | | [address] [place] | | | | | | [place] [address] | | | | | | [phone] | | | | | | | | +--------+ + + + + | 04/13/ | Office | Cardiology | Shawn Michael | | 2019 | Visit | | MD [address] | | | | | | [address] [place] | | | | | | [place] [address] | | | | | | [phone] | | | | | | | [...] + + + + | Rule out CCedric Difficile | 01/31/2020 7:49 PM | 02/01/2020 12:10 PM | | | PDT | PDT | + + + + documented as of this encounter"
--- OUTSIDE RECORDS SUMMARY | ~2020-03-14 | XMS | Encounter Summary ---
Demographics + + + | Address | [address] | | | [place] [address] | + + + | Home Phone [...] Team Providers + +------+ + | Care Print Developer Automatic Name | Role | Phone | + [...] | +--------+ + + + + | 06/28/ | Home Care | [facility] [place] | Sam Quintanilla, | PT REPEAT VISIT | | 2019 | Visit | [place] [address] | POWER HOUSE CONTROL ROOM OPERATOR [address] | | | | | [place] | [place] | | | | | [address] | [address] | | | | | [phone] | | | +--------+ + + + [...] + +---------+ + + | Pulse | 75 | 06/28/2019 11:06 AM | | | | | PDT | | + +---------+ + + | Temperature | - | - | | + +---------+ + + | Respiratory Rate | - | - | | + +---------+ + + | Oxygen Saturation | 97% | 06/28/2019 11:06 AM | 3 lit cont | | | | PDT | | [...] | | 2019 | Visit | | WOOL BUYER [address] | | | | | | [place] | | | | | | [address] | | | | | | | | +--------+ + + + + | 04/11/ | Appointment | Radiology | Shawn Michael | | | 2019 | | | MD [address] | | | | | | [address] [place] | | | | | | [place] [address] | | | | | | [phone] | | | | | | | | +--------+ + + + + | 04/13/ | Office | Cardiology | Shawn Michael | | | 2019 | Visit | | MD [address] | | | | | | [address] [place] | | | | | | [place] [address] | | | | | | [phone] | | | | | | | [...] rate | | | | | | right knee pain at | | | | | | 4/10 or less. | | | | | [...] | Problem: HH PT | | | POWER HOUSE CONTROL ROOM OPERATOR instructed pt is | | Description: | IMPAIRED GAITGoal: | Comple | | energy conservation, | | Evaluate and | HH PT GAIT/STAIRS | yo[place] | | task breakdown and | | instruct patient | | | | simplification, and | | and/or caregiver in | | | | breathing | | gait training using | | | | patterns/techniques | | LRAD no weight | | | | including diaphragmatic | | bearing restrictions | | | | breathing and pursed lip | | | | | | breathing for recovery | | | | | | post exertion. | | | | | | Therapist educated pt on | | | | | | appropriate AD use | | | | | | given noted deficits and | | | | | | impairments. Instructed | | | | | | pt with use of 4WW for | | | | | | 4x40 feet on even | | | | | | surfaces, completed task | | | | | | with contact guard | | | | | | assistance. Therapist | | | | | | gave VC for improved | | | | | | postural mechanics and | | | | | | normalized loading | | | | | | mechanics through ankles | | | | | | and hips. POWER HOUSE CONTROL ROOM OPERATOR notes | | | | | | ongoing deficits: | | | | | | enegery conservation to | | | | | | decreased fatigue with | | | | | | gait, improving stablity | | | | | | and manage pain with | | | | | | ambulation. that will | | | | | | continue to be addressed | | | | | | in future visits. | + + +--------+--------+ + | PT therapeutic | Problem: HH PT | | | POWER HOUSE CONTROL ROOM OPERATOR performed | | exercise | IMPAIRED | Comple | | progressive resistance | | Description: | STRENGTHGoal: HH PT | yoel | | exercises in stance: | | Evaluate and | STRENGTH | | | ankle PF/DF, HS curls | | instruct the patient | | | | and hip ad/abd/flexion. | | and/or caregiver | | | | POWER HOUSE CONTROL ROOM OPERATOR adjusted difficulty | | and provide home | | | | by changing position | | exercise program to | | | | relative to gravity and | | restore maximal | | | | use of therabands/manual | | functional strength. | | | | resistance as indicated | | | | | | to allow pt to complete | | | | | | 10 reps to simulate | | | | [...] | Problem: HH PT | | | POWER HOUSE CONTROL ROOM OPERATOR instructed pt on | | training | IMPAIRED | Comple | | corrected sit to stand | | Description: | TRANSFERSGoal: PT | yoel | | mechanics including [...] | function. | + + +--------+--------+ + | Monitor [...]
--- OUTSIDE RECORDS SUMMARY | ~2020-03-14 | XMS | Encounter Summary ---
Demographics + + + | Address | [address] | | | [place] [address] | + + + | Home Phone [...] Team Providers + +------+ + | Care Gas Prover Name | Role | Phone | + [...] + | 06/15/ | Home Care | [facility] [place] | García Walker, PT | PT SECONDARY EVAL | | 2019 | Visit | [place] [address] | [address] [place] | | | | | ST [place] | [place] [address] | | | | | [address] | [phone] | | | | | [phone] | | | +--------+ + + + [...] + + + | Blood Pressure | 118/56 | 06/15/2019 10:41 AM | | | | | PDT | | + + + + + | Pulse | 87 | 06/15/2019 10:41 AM | | | | | PDT | | + + + + + | Temperature | 36.7 C (98.1 F) | 06/15/2019 10:41 AM | | | | | PDT | | + + + + + | Respiratory Rate | - | - | | + + + + + | Oxygen Saturation | 97% | 06/15/2019 10:41 AM | on 3 L | | | | PDT | | [...] | | | | | [place] [address] | | | | | | [phone] | | | | | | | | +--------+ + + + + | 04/13/ | Office | Cardiology | Shawn Michael | | | 2019 | Visit | | MD Marcelino [address] | | | | | [address] | | | | | | [place] [address] | | | | | | [phone] | | | | | | | [...]
--- OUTSIDE RECORDS SUMMARY | ~2020-03-14 | XMS | Encounter Summary ---
Demographics + + + | Address | [address] | | | [place] [address] | + + + | Home Phone [...] Team Providers + +------+ + | Care Hydro Operator Name | Role | Phone | [...] + | 12/29/ | Home Care | [facility] [place] | Linda Laughlin, | CASE COMMUNICATION | | 2019 | Visit | [place] [address] | [place] | | | | | [place] | | | | | | [address] | | | | | | [phone] | | | +--------+ + + + [...] [place] | | | | | | [address] | | | | | | | | +--------+ + + + + | 04/11/ | Appointment | Radiology | Shawn Michael | | | 2019 | | | MD Marcelino [address] | | | | | | [address] | | | | | | [place] [address] | | | | | | [phone] | | | | | | | | +--------+ + + + + | 04/13/ | Office | Cardiology | Shawn Michael | | | 2020 | Visit | | MD Marcelino [address] | | | | | | [address] | | | | | | [place] [address] | | | | | | [phone] | | | | | | | [...]
--- OUTSIDE RECORDS SUMMARY | ~2020-03-14 | XMS | Encounter Summary ---
Demographics + + + | Address | [address] | | | [place] [address] | + + + | Home Phone | | + + + | Preferred Language | Unknown | + + + | Marital Status | | + + + | Judaism Affiliation | Unknown | + + + | Race | Unknown | + + + | Ethnic Group | Unknown | + + + Author + + + | Author | [facility] [...] Team Providers + +------+ + | Care Brakeshoe Repairer Name | Role | Phone | [...] | +--------+ + + + + | 07/02/ | Home Care | [facility] [place] | Wanda Barbosa, | SN REPEAT VISIT | | 2018 | Visit | [place] [address] | [place] | | | | | [place] | | | | | | [address] | | | | | | [phone] | | | +--------+ + + + [...] + + + | Blood Pressure | 122/78 | 07/02/2019 11:44 AM | | | | | PDT | | + + + + + | Pulse | 102 | 07/02/2019 11:44 AM | | | | | PDT | | + + + + + | Temperature | 36.3 C (97.3 F) | 07/02/2019 11:44 AM | | | | | PDT | | + + + + + | Respiratory Rate | 16 | 07/02/2019 11:44 AM | | | | | PDT | | + + + + + | Oxygen Saturation | 97% | 07/02/2019 11:44 AM | | | | | PDT [...] [place] | | | | | | [address] | | | | | | | | +--------+ + + + + | 04/11/ | Appointment | Radiology | Shawn Michael | | | 2019 | | | MD Marcelino [address] | | | | | | [address] | | | | | | [place] [address] | | | | | | [phone] | | | | | | | | +--------+ + + + + | 04/13/ | Office | Cardiology | Zacharynnamdi Shawn | | | 2019 | Visit | | MD Marcelino [address] | | | | | | [address] [place] | | | | | | [place] [address] | | | | | | [phone] | | | | | | | [...] - REPEAT VISIT | | Discipline - Fpc | + + + + +--------+--------+-------+ + | Problem | Description | Start | Status | Goals | Interventio | | | | Date | | | ns | + + +--------+--------+-------+ + | HH SHARED FALLS | | | | - | 1 problem | | Disciplines: | | 06/13/20 | Active | | | | Fpc, | | 19 | | | interventio | | Occupational Therapy | | | | | n | | | | | | | scheduled/d | | | | | | | ocumented | | | | | | | in this | | | | | | | visit | + + +--------+--------+-------+ + | HH SHARED PAIN | | | | - | 1 problem | | Disciplines: | | 06/13/20 | Active | | | | Fpc | | 19 | | | interventio [...] 1 problem | | Management | | 06/13/20 | Active | | | | Disciplines: | | 19 | | | interventio | | Fpc | | | | | n | [...] | | | | n | | Fpc | | | | | scheduled/d | [...] | | | | n | | Fpc | | | | | scheduled/d | | | | | | | ocumented | | | | | | | in this | | | | | | | visit | + + +--------+--------+-------+ + | Respiratory Status | COPD & CHF | | | - | 3 problem | | Disciplines: | | 06/13/20 | Active | | | | Fpc | | 19 | | | interventio [...] | Problem: HH SHARED | | | Pt had fall last week. | | risk | FALLS | Comple | | No injuries from fall | | | | yoel | | reported. | + + +--------+--------+ + | Skilled assessment | Problem: SHARED | | | See clinical | | pain | PAIN | Comple | | assessment in today's | | | | yoel | | contact. | + + +--------+--------+ + | Assess [...] respiratory | Problem: Respiratory | | | Pt lungs sound better | | status | Status | Comple | | today. More air | | | | yoel | | movement. | + + +--------+--------+ + | Instruct in CHF | Problem: Respiratory | | | | | Management | Status | Comple | | | | | | yoel | | | + + +--------+--------+ + | Monitor oxygen | Problem: Respiratory | | | O2 saturation obtained | | saturation | Status | Comple | | while patient was | | | | yoel | | sitting. See Vitals | | | | | | form. | + + +--------+--------+ + documented in this encounter"
--- OUTSIDE RECORDS SUMMARY | ~2020-03-14 | XMS | Encounter Summary ---
Demographics + + + | Address | [address] | | | [place] [address] | + + + | Home Phone [...] Providers + +------+ + | Care Director Internal Control Name | Role | Phone | + [...] + + | 07/14/ | Emergency | [facility] | Pj, | Upper respiratory | | 2019 | | [facility] | MD Marcel [address] | tract infection, | | | | [address] | [address] | unspecified type | | | | [place] | [place] [address] | (Primary Dx); | | | | [address] | [phone] | Hypervolemia, | | | | [phone] | | unspecified | | | | [...] any other concerns. Thank you for visiting [facility] Emergency Department. Please follow up with [...] [place] | | | | | | [address] | | | | | | | | +--------+ + + + + | 04/11/ | Appointment | Radiology | Shawn Michael | | | 2019 | | | MD [address] | | | | | | [address] [place] | | | | | | [place] [address] | | | | | | [phone] | | | | | | | | +--------+ + + + + | 04/13/ | Office | Cardiology | Shawn Michael | | | 2019 | Visit | | MD [address] | | | | | | [address] [place] | | | | | | [place] [address] | | | | | | [phone] | | | | | | | [...] + | [facility] | [address] | [place] | [phone] | | [facility] | | [address] | | | - LABORATORY | | [...] [address] | [place] | [phone] | | [facility] | | [address] | | | - LABORATORY | | [...] + | [facility] | [address] | [place] | [phone] | | [facility] | | [address] | | | - LABORATORY | | [...] mL/min/1.73m2 | [facility] | | | [place] | RATE,ESTIMATED | | MEDICAL | | | | mL/min/1.85h9Ofxl than | | CENTER - | | [...] | 8.7 | 8.7 - 10.4 | [facility] | | | | | mg/dL | [...] [address] | [place] | [phone] | | [facility] | | [address] | | | - LABORATORY | | [...] [address] | [place] | [phone] | | [facility] | | [address] | | | - LABORATORY | | [...] - 1.030 | [facility] | | | [place], | | | [facility] | | [...] + | [facility] | [address] | [place] | [phone] | | [facility] | | [address] | | | - LABORATORY | | [...] | | | | LEONIDAS CALVO MD ([id number]) | | | | | | on [...]
--- OUTSIDE RECORDS SUMMARY | ~2020-03-14 | XMS | Encounter Summary ---
Demographics + + + | Address | [address] | | | [place] [address] | + + + | Home Phone [...] Team Providers + +------+ + | Care Buhr Mill Operator Name | Role | Phone [...] Visit | [place] [address] | PERSONAL FITNESS MANAGER [address] | | | | | [place] | [place] | | | | | [address] | [address] | | | | | [phone] | | | +--------+ + + + [...] | | 2019 | Visit | | BLASTING ENTRY SPECIALIST [address] | | | | | | [place] | | | | | | [address] | | | | | | | | +--------+ + + + + | 04/11/ | Appointment | Radiology | Shawn Michael | | | 2019 | | | MD [address] | | | | | | [address] [place] | | | | | | [place] [address] | | | | | | [phone] | | | | | | | | +--------+ + + + + | 04/13/ | Office | Cardiology | Shawn Michael | | | 2019 | Visit | | MD [address] | | | | | | [address] [place] | | | | | | [place] [address] | | | | | | [phone] | | | | | | | [...] | | | | | and hips. PERSONAL FITNESS MANAGER notes | | | | | | ongoing deficits: WBOS, | | | | | | pain and fatigue that | | | | | | limited gait, that will | | | | | | continue to be addressed | | | | | | in future visits. | + + +--------+--------+ + | PT therapeutic | Problem: PT | | | PERSONAL FITNESS MANAGER performed | | exercise | IMPAIRED | Comple | | progressive resistance | | Description: | STRENGTHGoal: PT | yoel | | exercises in stance: | | Evaluate and | STRENGTH | | | ankle PF/DF and mini | | instruct the patient | | | | squats. PERSONAL FITNESS MANAGER adjusted | | and/or caregiver | | [...]
--- OUTSIDE RECORDS SUMMARY | ~2020-03-14 | XMS | Encounter Summary ---
Demographics + + + | Address | [address] | | | [place] [address] | + + + | Home Phone [...] | | + + +---------+ + | Laylaajnelle Argueta | ECON | Unknown | | + + +---------+ + Care Team Providers + +------+ + | Care Project Reservoir Engineer Name | Role | Phone | + +------+ + | Candido Link | PCP | | | MD | | | + +------+ + Reason for Visit + + + | Reason | Comments | + + + | TCM - Hosp FU | COPD | + + + Encounter Details +--------+---------+ + + + | Date | Type | Department | Care Team | Description | +--------+---------+ + + + | 12/13/ | Office | [facility] | Yana-Lani, | Pneumonia due to | | 2019 | Visit | MEDICINE [address] | MD Candido | methicillin | | | | [facility] | [address] [place] [address] | resistant | | | | [place] [address] | [place] [address] | Staphylococcus | | | | [phone] | [phone] | aureus, unspecified | | | | | | laterality, | | | | | | unspecified part of | | | | | | lung (HCC) (Primary | | | | | | Dx) | +--------+---------+ + + + Social History [...] + + + | Blood Pressure | 126/50 | 12/14/2019 9:53 AM | | | | | PDT | | + + + + + | Pulse | 85 | 12/14/2019 9:53 AM | | | | | PDT | | + + + + + | Temperature | 36.8 C (98.2 F) | 12/14/2019 9:53 AM | | | | | PDT | | + + + + + | Respiratory Rate | 28 | 12/14/2019 9:53 AM | | | | | PDT | | + + + + + | Oxygen Saturation | 85% | 12/14/2019 9:53 AM | | | | | PDT | | + + + + + | Inhaled Oxygen | - | - | | | Concentration | | | | + + + + + | Weight | 53.5 kg (117 lb 15.1 | 12/14/2019 9:53 AM | | | | oz) | PDT | | + + + + + | Height | - | - | | + + + + + | Body Mass Index | 19.63 | 12/12/2019 2:39 PM | | | | | PDT | | + + + + + documented in this encounter Patient Instructions Patient Instructions YanaCandido Munson MD - 12/14/2019 10:00 AM PDTGet an OTC pr obiotic to help with bactrim. Electronically signed by Candido Link MD at 07/2020 10:27 AM PDT documented in this encounter Progress Notes Candido Link MD - 12/14/2019 10:00 AM PDTFormatting of this note might be d ifferent from the original. CHIEF COMPLAINT Chief Complaint Patient presents with TCM - Hosp FU COPD HPI Ángela Crowley is a 89 y.o. y/o female who presents today for a TCV. She was admitted several times in recent weeks to the hospital, most recently she was admit yoel and diagnosed with pneumonia and she had MRSA growing from respiratory secretions. Yest erday her son took her back to the ER and she received a course of clindamycin which she sta rted taking today, however, the respiratory culture came back showing that MRSA she has is r esistant to this antibiotic. It is sensitive to Bactrim and tetracycline as well as linezol id and vancomycin. She has taken Bactrim in the past and had some GI discomfort with it but it was not anythin g severe. Her son and the patient think that she could try taking it again with some probio tic and yogurt. No fever or chills. Still having cough and difficulty clearing secretions. BACKGROUND Admission Date: 12/01/19 Discharge Date: 12/10/19 Discharge Disposition: Home or Self Care Principlal Discharge Diagnosis: Principal Problem: Pneumonia due to methicillin resistant Staphylococcus aureus (MRSA) Active Problems: Decubitus ulcer of sacral region, stage 2 Coronary artery disease involving [place] coronary artery of [place] heart without angina pectoris COPD (chronic obstructive pulmonary disease) Moderate protein-calorie malnutrition EssentialHypertension Depression/anxiety/depression Urinary incontinence/retention Discharging Physician: Sam Valladares MD ASSESSMENT & PLAN 1. Pneumonia due to methicillin resistant Staphylococcus aureus, unspecified laterality, un specified part of lung (HCC) - sulfamethoxazole-trimethoprim (BACTRIM DS) 800-160 mg per tablet; Take 1 tablet by mouth 2 times daily for 7 days. Dispense: 14 tablet; Refill: 0 -Discontinue clindamycin -Encouraged to take an [id number] probiotic on a daily basis. -Instructed son to take her back to the hospital if she develops difficulty breathing or co nfusion or lethargy. RELEVANT IMAGING CXR: IMPRESSION: Stable subtle thickening of the central bronchovascular/interstitial markings likely representing mild pulmonary vascular congestion. Superimposed pulmonary infection cannot be excluded. REVIEW OF SYSTEMS Constitutional: No Weight Change, No Fever, No Chills, No Malaise. ENT/Mouth: No Hearing Changes, No Ear Pain, No Nasal Congestion, No Sinus Pain, No Hoarsen ess, No sore throat, No Rhinorrhea, No Swallowing Difficulty. Eyes: No Eye Pain, No Vision Changes. Cardiovascular: No Chest Pain, No Dyspnea on Exertion. Respiratory: Cough, Mild SOB Gastrointestinal: No Nausea, No Vomiting, No Pain. Genitourinary: No Dysuria, No Urinary Frequency, No Hematuria. Musculoskeletal: No Arthralgias, No Myalgias. Skin: No Rashes, No Skin Lesions Neuro: No Weakness, No Numbness, No Headache. Psych: No Anxiety/Panic, No Depression. Heme/Lymph: No Bruising, No Bleeding. Endocrine: No Polyuria, No Polydipsia, No Temperature Intolerance. PHYSICAL EXAM VITAL SIGNS: BP 126/50 | Pulse 85 | Temp 36.8 C (98.2 F) (Temporal) | Resp 28 | Wt 53.5 kg (117 lb 15.1 oz) | SpO2 (!) 85% | BMI 19.63 kg/m Constitutional: Thin, very frail, elderly, pleasant female. HENT: Normocephalic, Atraumatic, Bilateral external ears normal, Oropharynx with no erythma , No oral exudates, Nose normal. Neck: Normal range of motion, No tenderness, Supple. Lymphatic: No lymphadenopathy noted. Cardiovascular: Regular rate & rhythm, No murmurs, No rubs, No gallops. No lower extremitie s edema. Thorax & Lungs: Normal chest, Mild respiratory distress, decreased breath sounds in both rogelio ngs, no crackles, wheezing, or rubs. Skin: Warm, No erythema, No rash. Musculoskeletal: Decreased range of motion in all major joints. Using walker for ambulatio n. Neurologic: Alert & oriented x 3, No focal deficits noted. Psychiatric: Affect normal, Judgment normal, Mood normal. 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 CHOLECYSTECTOMY COLONOSCOPY N/A 06/11/2019 Procedure: COLONOSCOPY-Possible Flex Sig; Surgeon: Edwin Stoddard MD; Location: [facility] HYSTERECTOMY NIRMAL AND BSO TONSILLECTOMY AND ADENOIDECTOMY UPPER GASTROINTESTINAL ENDOSCOPY N/A 06/07/2019 Procedure: EGD; Surgeon: Edwin Stoddard MD; Location: [facility] UPPER GASTROINTESTINAL ENDOSCOPY N/A 08/20/2019 Procedure: EGD; Surgeon: John Grimes MD; Location: [facility] CURRENT MEDICATIONS Current Outpatient Medications Medication Sig Dispense Refill acetaminophen (TYLENOL) 325 mg tablet Take 2 tablets by mouth every 6 hours as needed f or Pain (or fever >= 38.6 C (101.5 F)). 120 tablet albuterol 2.5 mg/3 mL nebulizer solution Take 3 mLs by nebulization every 4 hours as ne eded for Wheezing or Shortness of Breath. Inhale 1-2 treatments in nebulizer every 20 minute s for 3 doses, then 1-4 treatments every 1-4 hours as needed 60 vial 0 albuterol-ipratropium 2.5-0.5 mg/3 mL SOLN Take 3 mLs by nebulization 4 times a day. Du ration: Lifetime Dx: COPD J44.9 360 mL 5 aspirin 81 mg chewable tablet Take 1 tablet by mouth Daily. 30 tablet 3 atorvaSTATin (LIPITOR) 20 mg tablet Take 1 tablet by mouth every morning. 90 tablet 0 bacitracin 500 UNIT/GM ointment Apply 1 Application topically 3 times daily. to bedsore on buttocks benzonatate (TESSALON) 100 mg capsule Take 1 capsule by mouth 3 times daily as needed f or Cough. 21 capsule 0 brimonidine (ALPHAGAN) 0.2% ophthalmic solution Place 1 drop into both eyes 2 times millie ly. 12 budesonide (PULMICORT) 0.5 mg/2 mL nebulizer solution Take 2 mLs by nebulization 2 time s daily. Dx Code J44.90 (Patient taking differently: Take 0.5 mg by nebulization 4 times millie ly.) 180 mL 3 calcium carbonate (TUMS) 500 mg chewable tablet Chew and swallow 2 tablets Twice daily as needed for Heartburn or Indigestion. carvedilol (COREG) 6.25 mg tablet Take 6.25 [...] mouth 2 times daily for 7 days. 14 tablet 0 UNABLE TO FIND Adult Pull ups, medium size 100 each 3 No current facility-administered medications for this visit. ALLERGIES Allergies Allergen Reactions Flagyl [Metronidazole] Nausea And Vomiting and GI Upset Percocet [Oxycodone] Unknown Pregabalin Unknown Lyrica FOLLOW-UP Return in about 1 month (around 01/14/2020) for Follow Up - 15 Minutes. Notes: 1. Parts of this documentwere created using Appet[employer] speech recognition software. As a resu lt, there may be unintended word spelling errors. Every attempt was made to correct the di ctation. 2. IDalton MD, personally provided the services described in this documen tation, as scribed by CRISTINA Mazariegos, in my presence, and it is both accurate an d complete. Dalton Link MD Electronically signed by Candido Link MD at 2019 10:44 AM PDTdocumented in this encounter Plan of Treatment +--------+ + + + + | Date | Type | Specialty | Care Team | Description | +--------+ + + + + | 03/23/ | Office | Anticoagulation | García Harris, | | 2019 | Visit | | [address] | | | | | | [place] | | | | | | [address] | | | | | | | | +--------+ + + + + | 04/11/ | Appointment | Radiology | Shawn Michael | | 2019 | | | MD Marcelino [address] | | | | | | [address] | | | | | | [place] [address] | | | | | | [phone] | | | | | | | | +--------+ + + + + | 04/13/ | Office | Cardiology | Shawn Michael | | | 2020 | Visit | | MD Marcelino [address] | | | | | | [address] | | | | | | [place] [address] | | | | | | [phone] | | | | | | | | +--------+ + + + + documented as of this encounter Visit Diagnoses + + | Diagnosis | + + | Pneumonia due to methicillin resistant Staphylococcus aureus, unspecified laterality, | | unspecified part of lung (HCC) - Primary | + + documented in this encounter Additional Health Concerns + + + + | Infection | Noted Time | Resolved Time | + + + + | Methicillin-resistant Staphylococcus aureus | 06/08/2019 9:39 AM | | | | PDT | | + + + + documented as of this encounter"
--- OUTSIDE RECORDS SUMMARY | ~2020-03-14 | XMS | Encounter Summary ---
Demographics + + + | Address | [address] | | | [place] [address] | + + + | Home Phone | | + + + | Preferred Language | Unknown | + + + | Marital Status | | + + + | Pentecostalism Affiliation | Unknown | + + + | Race | Unknown | + + + | Ethnic Group | Unknown | + + + Author + + + | Author | [facility] | | | and [place] | + + + | Organization | [facility] | | | [...] Team Providers + +------+ + | Care Disease Education Specialist Name | Role | Phone | [...] [place] | | | | | | [address] | | | | | | [phone] | | | +--------+ + + + [...] | | | | | [place] [address] | | | | | | [phone] | | | | | | | | +--------+ + + + + | 04/13/ | Office | Cardiology | Shawn Michael | | | 2019 | Visit | | MD Marcelino [address] | | | | | | [place] [address] | | | | | | [place] [address] | | | | | | [phone] | | | | | | | [...] | | | | n | | Residential | | | | [...]
--- OUTSIDE RECORDS SUMMARY | ~2020-03-14 | XMS | Encounter Summary ---
Demographics + + + | Address | [address] | | | [place] [address] | + + + | Home Phone [...] Team Providers + +------+ + | Care Supply Cataloguer Name | Role | Phone | + [...] [place] | | | | | | [address] | | | | | | [phone] | | | +--------+ + + + [...] [place] | | | | | | [id number] | | | | | | | | +--------+ + + + + | 04/11/ | Appointment | Radiology | Shawn Michael | | | 2019 | | | MD Marcelino [address] | | | | | | [address] | | | | | | [place] [address] | | | | | | [phone] | | | | | | | | +--------+ + + + + | 04/13/ | Office | Cardiology | Shawn Michael | | | 2020 | Visit | | MD Marcelino [address] | | | | | | [place] [address] | | | | | | [place] [address] | | | | | | [phone] | | | | | | | [...]
--- OUTSIDE RECORDS SUMMARY | ~2020-03-14 | XMS | Encounter Summary ---
Demographics + + + | Address | [address] | | | [place] [address] | + + + | Home Phone | | + + + | Preferred Language | Unknown | + + + | Marital Status | | + + + | Mormon Affiliation | Unknown | + + + | Race | Unknown | + + + | Ethnic Group | Unknown | + + + Author + + + | Author | [facility] | | | and [place] | + + + | Organization | [facility] | | | [...] Team Providers + +------+ + | Care Merchandising Coordinator Name | Role | Phone | [...] + + + + | 06/18/ | Home Care | [facility] [place] | Wanda Barbosa, | SN REPEAT VISIT | | 2018 | Visit | [place] [address] | [place] | | | | | [place] | | | | | | [address] | | | | | | [phone] | | | +--------+ + + + [...] + + + | Blood Pressure | 128/74 | 06/18/2019 12:05 PM | | | | | PDT | | + + + + + | Pulse | 100 | 06/18/2019 12:05 PM | | | | | PDT | | + + + + + | Temperature | 36.7 C (98.1 F) | 06/18/2019 12:05 PM | | | | | PDT | | + + + + + | Respiratory Rate | 16 | 06/18/2019 12:05 PM | | | | | PDT | | + + + + + | Oxygen Saturation | 97% | 06/18/2019 12:05 PM | | | | | PDT [...] [place] | | | | | | [address] | | | | | | | | +--------+ + + + + | 04/11/ | Appointment | Radiology | Shawn Michael | | | 2019 | | | MD Marcelino [address] | | | | | | [address] | | | | | | [place] [address] | | | | | | [phone] | | | | | | | | +--------+ + + + + | 04/13/ | Office | Cardiology | Zacharynnamdi Shawn | | | 2019 | Visit | | MD Marcelino [address] | | | | | | [address] [place] | | | | | | [place] [address] | | | | | | [phone] | | | | | | | [...] - REPEAT VISIT | | Discipline - Long Term | + + + + +--------+--------+-------+ + | Problem | Description | Start | Status | Goals | Interventio | | | | Date | | | ns | + + +--------+--------+-------+ + | HH SHARED FALLS | | | | - | 1 problem | | Disciplines: | | 06/13/20 | Active | | | | Long Term, | | 19 | | | interventio [...] 06/13/20 | Active | | | | Long Term | | 19 | | | interventio [...] 19 | | | interventio | | Long Term | | | | | n | [...] | | | | n | | Long Term | | | | | scheduled/d | | | | | | | ocumented | | | | | | | in this | | | | | | | visit | + + +--------+--------+-------+ + | Respiratory Status | COPD & CHF | | | - | 3 problem | | Disciplines: | | 06/13/20 | Active | | | | Long Term | | 19 | | | interventio [...] Problem: HH SHARED | | | Pt inst to use walker | | risk | FALLS | Comple | | at all times, and inst | | | | yoel | | on conservation of | | | | | | energy | + + +--------+--------+ + | Skilled assessment | Problem: HH SHARED | | | See clinical | [...] medications | Problem: SN | | | Son manages and | | used by patient | Medication | Comple | | administers pt meds | | | Management | yoel | | | + + +--------+--------+ + | Educate patient | Problem: | | | Pt inst on manageing | | about oxygen | Oxygenation/Respirat | Comple | | oxygen. Pt increases to | | | ory Function | yoel | | 3 liters with exertion, | | | | | | otherwise keeps it at 2 | | | | | | liters. | + + +--------+--------+ + | Assess respiratory | Problem: Respiratory | | | See clinical | | status | Status | Comple | | assessment in today's | | | | yoel | | contact. | + + +--------+--------+ + | Instruct [...]
--- OUTSIDE RECORDS SUMMARY | ~2020-03-14 | XMS | Encounter Summary ---
Demographics + + + | Address | [address] | | | [place] [address] | + + + | Home Phone [...] Team Providers + +------+ + | Care Fish Hatchery Man Name | Role | Phone | + [...] + + + + | 07/07/ | Home Care | [facility] [place] | Layla Pablo | CASE COMMUNICATION | | 2019 | Visit | [place] [address] | | | | | | [place] | | | | | | [address] | | | | | | [phone] | | | +--------+ + + + [...] [place] | | | | | | [address] | | | | | | | | +--------+ + + + + | 04/11/ | Appointment | Radiology | Shawn Michael | | | 2019 | | | MD Marcelino [address] | | | | | | [address] | | | | | | [place] [address] | | | | | | [phone] | | | | | | | | +--------+ + + + + | 04/13/ | Office | Cardiology | Shawn Michael | | | 2020 | Visit | | MD Marcelino [address] | | | | | | [address] | | | | | | [place] [address] | | | | | | [phone] | | | | | | | [...]
--- OUTSIDE RECORDS SUMMARY | ~2020-03-14 | XMS | Encounter Summary ---
Demographics + + + | Address | [address] | | | [place] [address] | + + + | Home Phone [...] Team Providers + +------+ + | Care Surface Boss Name | Role | Phone | + [...] | +--------+ + + + + | 08/27/ | Telephone | [facility] | Kaylyn Rivas, | TCM - H[facility] | | 2019 | | MEDICINE [address] [place] [address] | [place] | | | | | Angelito [address] | | | | | | [place] [address] | | | | | | [phone] | | | +--------+ + + + [...] | | 2020 | Visit | | METAL DRILLING MACHINE OPERATOR [address] | | | | | | [place] | | | | | | [address] | | | | | | | | +--------+ + + + + | 04/11/ | Appointment | Radiology | Shawn Michael | | | 2019 | | | MD [address] | | | | | | [address] [place] | | | | | | [place] [address] | | | | | | [phone] | | | | | | | | +--------+ + + + + | 04/13/ | Office | Cardiology | Shawn Michael | | 2019 | Visit | | MD [address] | | | | | | [address] [place] | | | | | | [place] [address] | | | | | | [phone] | | | | | | | [...]
--- OUTSIDE RECORDS SUMMARY | ~2020-03-14 | XMS | Encounter Summary ---
Demographics + + + | Address | [address] | | | [place] [address] | + + + | Home Phone [...] Team Providers + +------+ + | Care Homicide Squad Sergeant Name | Role | Phone | + [...] [place] | | | | | | [address] | | | | | | [phone] | | | +--------+ + + + [...] | | | | | [place] [address] | | | | | | [phone] | | | | | | | | +--------+ + + + + | 04/13/ | Office | Cardiology | Shawn Michael | | | 2020 | Visit | | MD Marcelino [address] | | | | | | [address] | | | | | | [place] [address] | | | | | | [phone] | | | | | | | [...] - OASIS DANIELLA | | Discipline - Assisted | + [...] 2018 | | | interventio | | Assisted | infusion. | | | | ns [...] | interventio | | Assisted | | 019 | | scheduled/d | [...] 2018 | | | interventio | | Assisted [...] Active | linked to | | | Assisted | | 2019 | | scheduled/d | [...] | interventio | | Assisted | | 2019 | | scheduled/d | [...] | | scheduled/d | ns | | Assisted | | | | ocumented | scheduled/d [...] 08/28/ | Active | | | | Assisted | | 2018 | | | interventio [...] | | | | n | | Assisted, | | | | | scheduled/d | | Physical Therapy, | | | | | ocumented | | Occupational | | | | | in this | | Therapy, Case | | | | | visit | | Presentation Specialist, Physical | | | | | | | Carpenter [employer]car | | | | | | + + +--------+--------+ + + | Respiratory Status | Respiratory Status | | | 1 goal | 1 goal | | Disciplines: | DIAGNOSIS COPD, | | Active | linked to | interventio | | Assisted | CHRONIC OXYGEN USE | 2018 | [...] Resolv | linked to | | | Assisted | ulcer located on | 2018 | [...] | | | | as presented in [facility] | | | | | | Pt [...] | | patient and/or caregiver | | [facility] GI teaching | | | | [...] | | | | | | to [facility] for | | | | | | [...] | | MD/RN | | | | negotiator in [place] | | | | | | [place]., [...] | | | | | and provide [facility] | | | | | | [...]
--- OUTSIDE RECORDS SUMMARY | ~2020-03-14 | XMS | Encounter Summary ---
Demographics + + + | Address | [address] | | | [place] [address] | + + + | Home Phone | | + + + | Preferred Language | Unknown | + + + | Marital Status | | + + + | Jehovah'S Witness Affiliation | Unknown | + + + | Race | Unknown | + + + | Ethnic Group | Unknown | + + + Author + + + | Author | [facility] | | | and [place] | + + + | Organization | [facility] | | | [...] Team Providers + +------+ + | Care Insulation Board Head Saw Operator Name | Role | Phone | [...] | +--------+ + + + + | 10/21/ | Home Care | [facility] [place] | García Walker, PT | PT DISCIPLINE D/C | | 2020 | Visit | [place] [address] | [address] [facility] | | | | | [place], [place] | [place] [address] | | | | | [address] | [phone] | | | | | [phone] | | | +--------+ + + + [...] [place] | | | | | | [address] | | | | | | | | +--------+ + + + + | 04/11/ | Appointment | Radiology | Shawn Michael | | 2019 | | | MD Marcelino [address] | | | | | | [address] | | | | | | [place] [address] | | | | | | [phone] | | | | | | | | +--------+ + + + + | 04/13/ | Office | Cardiology | Shawn Michael | | | 2019 | Visit | | MD Marcelino [address] | | | | | | [address] [place] | | | | | | [place] [address] | | | | | | [phone] | | | | | | | [...] goal | | | TRANSFERS | | 11/26/ | Active | linked to | | | Disciplines: | | 2019 | | scheduled/d | | | Physical Therapy | | | | ocumented | | | | | | | interventio | | | | | | | n | | + + +--------+--------+ + + | HH PULSE OXIMETRY | Oximetry | | | 1 goal | | | Disciplines: | | 08/31/ | Active | linked to | | | Physical Therapy | | 2019 | | scheduled/d | | | | | | | ocumented | | | | | | | interventio | | | | | | | n | | + + +--------+--------+ + + | HH SHARED FALLS | Falls | | | 1 goal | | | Disciplines: | | 08/31/ | Active | linked to | | | Physical Therapy | | 2019 | | scheduled/d | | | | | | | ocumented | | | | | | | interventio | | | | | | | n | | + + +--------+--------+ + + | HH SHARED PAIN | Pain | | | 1 goal | | | Disciplines: | | 08/31/ | Active | linked to | | | Physical Therapy | | 2019 | | scheduled/d | | | | | | | ocumented | | | | | | | interventio | | | | | | | n | | + + +--------+--------+ + + | Knowledge Deficit, | | | | 1 goal | | | Education, | | 08/28/ | Active | linked to | | | Discharge Plan | | 2018 | | scheduled/d | | | Disciplines: | | | | ocumented | | | Detention, | | | | interventio | | | Physical Therapy, | | | | n | | | 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 | | + + +--------+-------+ + | HH PT GAIT/STAIRS | HH PT IMPAIRED | Met | Yes | | | Description: The | GAIT [...] PT TRANSFERS | HH PT IMPAIRED | Not | Yes | | | Description: The | TRANSFERS | met, | | | | patient will perform | | adequa | | | | independent | | te for | | | | transfers for all | | care | | | | household surfaces | | transi | | | | using rolling | | tion | | | | walker.. Outcomes: | [...] Pulse oximetry | HH PULSE OXIMETRY | Met | Yes | | | parameters | | | [...] HH PAIN | HH SHARED PAIN | Met | Yes | | | Description: The | | [...] | Identify discharge | Knowledge Deficit, | Met | Yes | | | needs | Education, | | | | | | Discharge Plan | | | | + + +--------+-------+ + + + +--------+--------+ + | Intervention | Associated | Status | Varian | Visit Notes | | | Problem/Goal | | ce | | + + +--------+--------+ + | Pt gait training | Problem: HH PT | | | | | Description: [...]
--- OUTSIDE RECORDS SUMMARY | ~2020-03-14 | XMS | Encounter Summary ---
Demographics + + + | Address | [address] | | | [place] [address] | + + + | Home Phone [...] Team Providers + +------+ + | Care Researcher Name | Role | Phone | + [...] 12/13/ | Home Care | [facility] [place] | García Walker, PT | CASE COMMUNICATION | | 2020 | Visit | [place] [address] | [address] [facility] | | | | | [facility] [place] [facility] [place] [address] | | | | | [address] | [phone] | | | | | [phone] | | | +--------+ + + + [...] [place] | | | | | | [address] | | | | | | | | +--------+ + + + + | 04/11/ | Appointment | Radiology | Shawn Michael | | 2019 | | | MD Marcelino [address] | | | | | | [address] | | | | | | [place] [address] | | | | | | [phone] | | | | | | | | +--------+ + + + + | 04/13/ | Office | Cardiology | Shawn Michael | | | 2019 | Visit | | MD Marcelino [address] | | | | | | [address] [place] | | | | | | [place] [address] | | | | | | [phone] | | | | | | | [...]
--- OUTSIDE RECORDS SUMMARY | ~2020-03-14 | XMS | Encounter Summary ---
Demographics + + + | Address | [address] | | | [place] [address] | + + + | Home Phone | | + + + | Preferred Language | Unknown | + + + | Marital Status | | + + + | Christian Affiliation | Unknown | + + + | Race | Unknown | + + + | Ethnic Group | Unknown | + + + Author + + + | Author | [facility] | | | and [place] | + + + | Organization | [facility] | | [...] Team Providers + +------+ + | Care Armature Rewinder Name | Role | Phone | + [...] + + | 11/18/ | Telephone | [facility] | Janel, | Care Coordination | | 2020 | | MEDIC[facility] [place] | Brittany Schulz RN | | | | | [address] | | | | | | [place] | | | | | | [address] | | | | | | [phone] | | | +--------+ + + + [...] | | 2019 | Visit | | SPEECH AND LANGUAGE TUTOR [address] | | | | | | [place] | | | | | | [address] | | | | | | | | +--------+ + + + + | 04/11/ | Appointment | Radiology | Shawn Michael | | 2019 | | | MD [address] | | | | | | [address] [place] | | | | | | [place] [address] | | | | | | [phone] | | | | | | | | +--------+ + + + + | 04/13/ | Office | Cardiology | Shawn Michael | | 2019 | Visit | | MD [address] | | | | | | [address] [place] | | | | | | [place] [address] | | | | | | [phone] | | | | | | | [...]
--- OUTSIDE RECORDS SUMMARY | ~2020-03-14 | XMS | Encounter Summary ---
Demographics + + + | Address | [address] | | | [place] [address] | + + + | Home Phone [...] Team Providers + +------+ + | Care Circular Stuffer Name | Role | Phone | + [...] | +--------+ + + + + | 06/30/ | Home Care | [facility] [place] | Bernardo Souza | OT REASSESSMENT | | 2018 | Visit | [place] [address] | M, OT | (COUNT OR 30 DAY) | | | | [place] | | | | | | [address] | | | | | | [phone] | | | +--------+ + + + [...] + | Blood Pressure | 108/56 | 06/30/2019 2:22 PM | | | | | PDT | | + + + + + | Pulse | 101 | 06/30/2019 2:22 PM | | | | | PDT | | + + + + + | Temperature | 37 C (98.6 F) | 06/30/2019 2:22 PM | | | | | PDT | | + + + + + | Respiratory Rate | - | - | | + + + + + | Oxygen Saturation | 94% | 06/30/2019 2:22 PM | | | | | PDT [...] | | | | | [place] [address] | | | | | | [phone] | | | | | | | | +--------+ + + + + | 04/13/ | Office | Cardiology | Shawn Michael | | | 2019 | Visit | | MD Marcelino [address] | | | | | | [address] | | | | | | [place] [address] | | | | | | [phone] | | | | | | | [...] + | Visit Type - OT - REASSESSMENT VISIT | | Discipline - Occupational Therapy | + + + + +--------+--------+ + + | Problem | Description | Start | Status | Goals | Interventio | | | | Date | | | ns | + + +--------+--------+ + + | HH OT ADL DEFICITS | ADL deficits | | | 1 goal | | | Disciplines: | | | Active | linked to | | | Occupational Therapy | | 019 [...] OT ADL DEFICITS | | No | Family has not | | Description: The | | | | purchased adaptive | | patient and/or | | | | equipment yet. Patient | | caregiver | | | | still requires | | demonstrates upper | | | | assistance. | | body dressing with | | [...] | | | | | | horn, him specialist and | | | | | | [...]
--- OUTSIDE RECORDS SUMMARY | ~2020-03-14 | XMS | Encounter Summary ---
Demographics + + + | Address | [address] | | | [place] [address] | + + + | Home Phone [...] Team Providers + +------+ + | Care Intelligence Director Name | Role | Phone | [...] | | | | | ([facility]) Fall, | | | | | | [...] | | | | | ([facility]) | | | | | | | Chronic | | | | | | | obstructive | | | | | | | pulmonary | | | | | | | disease, | | | | | | | unspecified | | | | | | | COPD type | | | | | | | ([facility]) | | | | | | | | | | +--------+--------+ + + + + Encounter Details +--------+ + + + + | Date | Type | Department | Care Team | Description | +--------+ + + + + | 02/26/ | Hospital | [facility] | Mir Lux | Fall, initial | | 2019 - | Encounter | [facility] | Kevin Urbano MD | encounter (Primary | | | | [address] | [address] | Dx); Other closed | | 03/02/ | | [place] [address] | PRASH[place] PATEL | nondisplaced | | 2019 | | [phone] | [id number] | fracture of second | | | | | | cervical vertebra, | | | | | Aida Mills MD | initial encounter | | | | | [address] | ([facility]); Colitis; | | | | | [place] | Weakness; Iron | | | | | [address] | 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 blood | | | | | | loss; Acute | | | | | | 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 (HCC); | | | | | | Chronic obstructive | | | | | | pulmonary disease, | | | | | | unspecified COPD | | | | | | type (HCC); Anemia, | | | | | | unspecified type | +--------+ + + + + Social History + + + +--------+ + | Tobacco Use | Types | Packs/Day | Years | Date | | | | | Used | | + + + +--------+ + | Former Smoker | Cigarettes | | | 194 - 1968 | + + + +--------+ [...] + + + | Blood Pressure | 136/64 | 03/02/2020 7:21 AM | | | | | PDT | | + + + + + | Pulse | 96 | 03/02/2020 7:46 AM | | | | | PDT | | + + + + + | Temperature | 36.7 C (98 F) | 03/02/2020 7:21 AM | | | | | PDT | | + + + + + | Respiratory Rate | 20 | 03/02/2020 7:46 AM | | | | | PDT | | + + + + + | Oxygen Saturation | 96% | 03/02/2020 7:46 AM | | | | | PDT [...] + documented in this encounter Discharge Summaries Saman Alcocer, - 03/02/2020 3:01 PM PDTFormatting of this note might be differ ent from the original. Physician Discharge Summary Patient ID: Ángela rCowley [id number] 89 y.o. 1930 Admit date: 02/27/2020 Discharge date and time: 03/02/20 Admitting Physician: Aida Mills MD Discharge Physician: Saman Alcocer Admission Diagnoses: Colitis [K52.9] Weakness [R53.1] Iron deficiency anemia due to chronic blood loss [D50.0] Acute systolic congestive heart failure (HCC) [I50.21] Fall, initial encounter [W19.XXXA] Other closed nondisplaced fracture of second cervical vertebra, initial encounter ([facility]) [S1 2.191A] Chronic obstructive pulmonary disease, unspecified COPD type ([facility]) [J44.9] Discharge Diagnoses: Acute on chronic blood loss anemia, essential HTN, Systolic CHF not i n exacerbation, LUE DVT, sacral ulcers, C2 R lamina fracture, chronic hypoxic respiratory fa ilure, esophageal dysphagia Admission Condition: fair Discharged Condition: good Indication for Admission: anemia, fall Hospital Course: Admitted with fall and hitting of head, arrived with C Collar in place and found to have C2 fracture. This was evaluated by neurosurgery who cleared collar and determined no need for surgery, stable lesion. She had a history of recent diagnosis of LUE DVT, was on Eliquis. She was having ongoing anemia, known history of GI bleed with negative eval, likely AVMs. She received total of 2 units of prbc during this stay. She underwent repeat US of her LUE which did not find evidence of ongoing DVT, after discussion with patient and patient's son, shared decision making was employed an the decision made to stop Eliquis given ongoing blee ding risk and need for transfusions. She has sacral ulcers which were treated with wound care, she completed oral Abx which will be discontinued at discharge as patient has had 8 days of therapy. A pike catheter was pl aced during her stay which was removed prior to discharge and patient voiding spontaneously. Her medications for systolic CHF include Coreg, this was decreased from 6.25mg to 3.125mg B ID. She resumed prior home lasix. She has chronic hypoxic respiratory failure and was sta ble on her home use of 3-4 L NC O2. Dietary assisted patient during her stay as did ST. Patient and son declined further MBSS, there is possibility of achalasia. Patient also declined COVID testing. PT and OT both re commended SNF, however patient and son were firm that she would be going home. She was disc harged with home health PT/OT/RN/SW. Consults: none Significant Diagnostic Studies: LUE Doppler US 02/29/20: IMPRESSION: No evidence of DVT. Treatments: transfusion PRBC x3 units, PT/OT, supplemental O2 Discharge Exam: GEN: Pleasant, cooperative, in NAD, thin habitus HEENT: External ears/nose unremarkable. PERRL/EOMI. Oropharynx unremarkable NECK: Supple, no thyromegaly or lyphadenopathy CV: RRR, no M/R/G. Peripheral pulses 2+ and equal bilaterally. No JVD. PUL: Decreased sounds throughout ABD: Soft, ND, NT, with normal bowel tones in all quadrants EXT: No clubbing, cyanosis, or edema noted NEURO: No focal deficits PSYCH: Alert, oriented, with normal mood and affect. SKIN: Diffuse ecchymoses Disposition: home Patient Instructions: Discharge Medications Unchanged Medications Details acetaminophen 500 mg tablet [...] Daily. Length: Lifetime, Dx: J44.9 aka: BROVANA ascorbic acid 500 mg tablet Take 500 mg by mouth Daily. aka: VITAMIN C aspirin 81 mg chewable tablet Take 1 [...] aka: CALTRATE carvedilol 6.25 mg tablet Take 1 tablet by mouth 2 times daily (with breakfast & dinner) for 30 days. aka: COREG cetirizine 10 mg tablet Take 1 tablet by mouth once daily aka: zyrTEC cholecalciferol 25 mcg (1,000 units) tablet Take 1,000 Units by mouth Daily. aka: VITAMIN D-3 collagenase ointment Apply to the area of tissue necrosis around the wound daily with wound care aka: SANTYL Cranberry 600 MG Tabs Take 1 tablet [...] as needed for Chest pain. aka: NITROSTAT nystatin 952001 UNIT/GM cream aka: MYCOSTATIN ondansetron 4 mg disintegrating tablet Take 1 [...] FIND Powder free dispoable gloves, size large Discontinued Medications amoxicillin-clavulanate 875-125 mg per tablet aka: AUGMENTIN apixaban 2.5 mg tablet aka: ELIQUIS metoprolol succinate 25 mg 24 hr tablet aka: TOPROL-XL sulfamethoxazole-trimethoprim 800-160 mg per tablet aka: BACTRIM DS Activity: activity as tolerated with home PT/OT Diet: cardiac diet Wound Care: as directed by home nursing Follow-up with PCP on March 07 Signed: Saman Alcocer DO 03/02/2020 3:01 PM documented in this encounter Discharge Instructions Instructions Saman Alcocer, - 02/27/2020Please discontinue Augmentin, Bactrim, metoprolol. Coreg continued at lower dose, new prescription sent to [facility]. Per our disc ussion we will stop the Eliquis as it is resulting in bleeds with need for ongoing transfusi ons. Other home medications may be resumed. Home health physical therapy, occupational th erapy, and nursing have been ordered. Please follow-up with Dr. Millan on 03/07/20. Please have a lab draw on FridayMarch 06 to check blood counts. Please monitor that she continues to have urine output. She was going to the bathroom on her own after the urinary catheter was removed prior to discharge. documented in this encounter Medications at Time [...] | | | | type ([facility]) | | | | | [...] 0 | 02/24/20 | | | (MYCOSTATIN) [id number] | | | | 20 | | [...] | | 0 | | | | ([facility]) 0.65% nasal | Nare route. two [...] encounter Progress Notes Ina Vann, PharmD - 03/01/2020 4:49 PM PDTFormatting of this note might be differen t from the original. PHARMACY SERVICES: ADMISSION MEDICATION REVIEW Ángela Crowley is a 89 y.o. female admitted on 02/27/2020. Patient is not a reliable historian. Location of Patient when reviewed: MEDICAL FLOOR Patient s prior to admit medication and over the counter (OTC) medications/herbal supplem ents list obtained from: X Verbal interview assisted by sonNafisa who is a reliable historian (this person manages medications) X Patient not interviewed or unable to supply information due to: Does not manage her own medications X Pharmacy list names: [facility] ([place]) X [facility] [employer] insurance reported information X Outside Information Vaccines up to date? 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/Frequency change: [employer] Medication: Prior to Admission Sig: Correct Dosage/Form: Correct Sig: Ascorbic acid 1000 mg tablet Take 1 tablet by mouth daily Ascorbic acid 500 mg tablet Take 1 tablet by mouth daily Medication added: Medication: Prior to Admission Sig: Patient taking differently as: Metoprolol succinate 25 mg tablet Take 1 tablet by mouth daily Patient is taking 1 tablet n ightly, however this was discontinued per Dr. Cochran on 02/09/20 Other: Medication: Prior to Admission Sig: Patient taking differently [employer] as: Furosemide 20 mg tablet Take 1 tablet by mouth 2 times daily Patient's son states patient t akes 1 tablet daily in the AM Nystatin [id number] unit per gm cream No sig Could not confirm if/how patient is using. Patient 's son was not quite sure, he thinks patient was using as needed Polyvinyl alcohol (Liquitears) 1.4 % opth marcelino Place 2 drops into both eyes every morning Alton ayalasean states he places 5 drops in each eye 5 minutes prior to her morning medicated eye drop s, this medication "washes" her eyes out patient's son would like education on whether or not CBD cream would be ok for her to us e for her knee pain or would it interact with her medications. He would like to taper her of f of Hydrocodone. Best possible [employer] medication list after pharmacy review: PT REPORTED TAKING NOT TAKING Medication Sig Last Dose Dispense Doc. Provider acetaminophen (TYLENOL) 500 mg tablet Take 500 [...] as needed Taking 60 vial Jazz Najera amoxicillin-clavulanate (AUGMENTIN) 875-125 mg per tablet Take 1 tablet by mouth 2 times d aily. Taking 20 tablet Keyur Carvajal MD apixaban (ELIQUIS) 2.5 mg tablet Take 1 tablet by mouth 2 times daily for 67 doses. Indica tions: VTE PE Prophylaxis - hip surgery Taking 60 tablet Keyur Carvajal MD arformoterol (BROVANA) 15 MCG/2ML NEBU Take 2 mLs by nebulization Twice Daily. Length: Lif etime, Dx: J44.9 Taking 120 mL Lina Correa MD ascorbic acid (VITAMIN C) 500 mg tablet Take 500 mg by mouth Daily. Taking Alfredo faith MD aspirin 81 mg chewable tablet Take 1 tablet by mouth Daily. Taking 30 tablet Candido Link MD atorvaSTATin (LIPITOR) 20 mg tablet TAKE 1 TABLET BY MOUTH ONCE DAILY IN THE MORNING Takin g 90 tablet Candido Link MD brimonidine (ALPHAGAN) 0.2% ophthalmic solution Place [...] daily (with breakfast & di nner). Taking [facility] cetirizine (ZYRTEC) 10 mg tablet Take 1 tablet by mouth once daily Taking 30 tablet Sally Link MD cholecalciferol (VITAMIN D-3) 25 mcg (1,000 units) tablet Take 1,000 Units by mouth Daily. Taking Historical ProviderMD collagenase (SANTYL) ointment Apply to the area of tissue necrosis around the wound daily with wound care Taking Keyur Carvajal MD Cranberry 600 MG TABS Take 1 tablet by mouth Daily. Taking Historical ProviderMD dicyclomine (BENTYL) 10 mg capsule Take 1 capsule by mouth Daily as needed for Other (As n eeded for abdominal cramps). Taking 30 capsule Keyur Carvajal MD docusate sodium (COLACE) 250 MG capsule Take 1 capsule by mouth Twice daily as needed for Constipation. Hold for loose stools Taking 60 capsule Bruce Cochran MD dorzolamide (TRUSOPT) 2% ophthalmic solution Place 1 drop into both eyes 2 times daily. Blane Donohue MD escitalopram (LEXAPRO) 10 mg tablet Take 1.5 tablets by mouth Daily. Taking 45 tablet Nguyễn Cochran MD famotidine (PEPCID) 40 MG tablet Take [...] samantha rs as needed for Pain. Taking 28 tablet Bruce Cochran MD ketoconazole (NIZORAL) 2% cream Apply topically 2 times daily. Taking 30 g Candido Gupta MD lactobacillus GG (CULTURELLE) capsule Take 1 capsule by mouth 2 times daily. As probiotic (or use some similar OTC probiotic) for 10 days Taking 20 capsule Bruce Cochran MD latanoprost (XALATAN) 0.005% ophthalmic solution Place 1 drop into both eyes nightly. Takmyriam Donohue MD metoprolol succinate (TOPROL-XL) 25 mg 24 hr tablet Take 25 mg by mouth Daily. Taking Diff erently Historical ProviderMD Multiple Vitamins-Minerals (MULTIVITAMIN GUMMIES ADULT PO) Take 1 gummy by mouth daily Devan ing Alfredo ProviderMD Multiple Vitamins-Minerals (PRESERVISION AREDS 2) CAPS Take 1 capsule by mouth 2 times millie ly. Taking [facility] nitroglycerin (NITROSTAT) 0.[address] 0.4 mg under the tongue every 5 minutes a s needed for Chest pain. Taking Historical ProviderMD nystatin (MYCOSTATIN) 066753 UNIT/GM cream Keyur Carvajal MD ondansetron (ZOFRAN ODT) 4 mg disintegrating tablet [...] mouth Daily as needed for Constipation. Taking [facility] polyvinyl alcohol (LIQUITEARS) 1.4% ophthalmic solution Place 2 drops into both eyes every morning. Taking Differently Historical ProviderMD predniSONE (DELTASONE) 10 mg tablet Take 1 [...] severe J44.9 Taking 1 e ach Lina Correa MD senna (SENOKOT) 8.6 mg tablet Take 1 tablet by mouth Twice daily as needed for Constipati on. Taking 14 tablet Keyur Carvajal MD sodium chloride (OCEAN) 0.65% nasal spray 2 sprays by Each Nare route. two to three times daily as needed for nasal dryness Taking Historical ProviderMD sulfamethoxazole-trimethoprim (BACTRIM DS) 800-160 mg per tablet Take 1 tablet by mouth 2 times daily for 10 days. Indications: Non-Purulent Skin and Soft Tissue Infection Taking 20 tablet Keyur Carvajal MD UNABLE TO FIND Powder free dispoable gloves, size large Taking 2 Box Candido Garibay MD Medication review performed and electronically signed by Gayatri Aldana, Reporter 03/01/2020 4:12 PM Reviewed by Ina Vann, PharmD 03/01/2020 4:46 PM Saamn Barragan DO - 03/01/2020 2:00 PM PDTFormatting of this note might be different from the orig inal. [facility] HOSPITALIST PROGRESS NOTE Patient: Ángela Crowley : 1930: Age: 89 y.o. MedRec: [id number] Admission date: 02/27/2020 Hospital day # : 3 Physician author: Saman Alcocer DO Today: 03/01/2020 Allergies: Allergies Allergen Reactions Flagyl [Metronidazole] Nausea And Vomiting and GI Upset Percocet [Oxycodone] Unknown Pregabalin Unknown Lyrica Current Medications: Current Facility-Administered Medications Medication Dose Route Frequency Provider Last Rate Last Dose acetaminophen (TYLENOL) tablet 500 mg 500 mg Oral Q6H PRN Aida Mills MD 500 mg at 02/29/20 1516 albuterol 2.5 mg/3 mL nebulizer solution 2.5 mg 2.5 mg Nebulization RT Q2H PRN Saman Alcocer DO albuterol-ipratropium 2.5-0.5 mg/3 mL nebulizer solution 3 mL 3 mL Nebulization RT Q8H Aida Mills MD 3 mL at 03/01/20 0802 amoxicillin-clavulanate (AUGMENTIN) 875-125 mg per tablet 1 tablet 1 tablet Oral BID Laura Mills MD 1 tablet at 03/01/20 0934 atorvaSTATin (LIPITOR) tablet 20 mg 20 mg Oral Nightly Aida Mills MD 20 mg at 02/04 03/25 2200 budesonide (PULMICORT) nebulizer solution 0.5 mg 0.5 mg Nebulization BID Aida Mills MD 0.5 mg at 03/01/20 0808 carvedilol (COREG) tablet 3.125 mg 3.125 mg Oral BID Saman Alcocer DO 3. 125 mg at 03/01/20 0951 collagenase (SANTYL) ointment Topical See Admin Instructions Aida Mills MD dicyclomine (BENTYL) capsule 10 mg 10 mg Oral Daily PRN Aida Mills MD dorzolamide (TRUSOPT) 2% ophthalmic solution 1 drop 1 drop Both Eyes BID Aida Mills MD 1 drop at 03/01/20 0952 escitalopram (LEXAPRO) tablet 15 mg 15 mg Oral Daily Aida Mills MD 15 mg at 0934 famotidine (PEPCID) tablet 20 mg 20 mg Oral Daily Deisy Alcocer PharmD 20 mg at 03/01/20 0951 ferrous sulfate tablet 325 mg 325 mg Oral Daily with breakfast Aida Mills MD 325 m g at 03/01/20 0951 furosemide (LASIX) tablet 20 mg 20 mg Oral Daily Saman Alcocer DO 20 mg at 03/01/20 0935 HYDROcodone-acetaminophen (NORCO) 5-325 mg per tablet 1 tablet 1 tablet Oral Q4H PRN Subha Carvajal MD 1 tablet at 03/01/20 1337 lactobacillus GG (CULTURELLE) capsule 1 capsule 1 capsule Oral BID Aida Mills MD 1 capsule at 03/01/20 0935 latanoprost (XALATAN) 0.005% ophthalmic solution 1 drop 1 drop Both Eyes Nightly Gagandeep Mills MD 1 drop at 02/29/20 2203 nystatin (MYCOSTATIN) cream Topical BID PRN Aida Mills MD pantoprazole (PROTONIX) DR tablet 40 mg 40 mg Oral QAM AC Aida Mills MD 40 mg at 0 03/01/20 0642 polyvinyl alcohol (LIQUITEARS) 1.4% ophthalmic solution 2 drop 2 drop Both Eyes QAM Vivi Mills MD 2 drop at 03/01/20 0952 senna (SENOKOT) tablet 8.6 mg 8.6 mg Oral BID PRN Aida Mills MD sodium chloride (OCEAN) 0.65% nasal spray 2 spray 2 spray Each Nare Q2H PRN Aida hernandez MD sulfamethoxazole-trimethoprim (BACTRIM DS) 800-160 mg per tablet 1 tablet 1 tablet Ora l BID Keyur Carvajal MD 1 tablet at 03/01/20 0935 Current Infusions: Objective Data Point of care glucose Recent Labs Lab 02/24/20 1232 02/24/20 0614 02/23/206 02/23/20 1623 POCGLU 75 89 147* 180* Labs last 24 hours Recent Results (from the past 24 hour(s)) CBC no Differential Collection Time: 03/01/20 5:05 AM Result Value Ref Range WBC 9.6 4.0 - 11.0 K/uL RBC 2.72 (L) 3.70 - 5.20 M/uL Hemoglobin 8.2 (L) 11.5 - 16.0 g/dL Hematocrit 26.6 (L) 34.0 - 47.0 % MCV 97.8 83.0 - 101.0 fL MCH 30.1 28.0 - 35.0 pg MCHC 30.8 (L) 32.0 - 36.0 g/dL RDW-CV 17.4 (H) <15.0 % RDW-SD 62.1 (H) 35.1 - 46.3 fL Platelet Count 149 140 - 440 K/uL MPV 10.5 6.5 - 12.4 fL % nRBC 0 0 - 2 per 100 WBCs Absolute nRBC 0.00 0.00 - 0.01 K/uL Extra Green Top Tube Collection Time: 03/01/20 5:05 AM Result Value Ref Range Extra Green Top Tube Done Red Blood Cells (PRBC) - Crossmatch Collection Time: 03/01/20 10:49 AM Result Value Ref Range Product Code K5864P25 UNIT # [id number] UNIT ABO A UNIT RH POS CROSSMATCH INTERP Compatible Unit Status Issued Blood Product Expiration Date and Time [id number] Product Blood Type Barcode 6200 Micro results Microbiology Results (72 hrs) No results found for the last 72 hours. Radiology results Vas Upper Extremity Venous Left Result Date: 02/29/2020 TECHNIQUE: Right upper extremity B-mode ultrasound with color and duplex Doppler. CLINICAL INFORMATION: interval changes in DVT. COMPARISON: None available. FINDINGS: Normal flow and compressibility of the visualized deep venous structures. Unable to assess augmentation due to patient pain/discomfort. No evidence of DVT. Dictated and Signed by: John Groves MD Electronically signed: 02/28 8:50 PM Vitals Ranges: Temp: [35.7 C (96.3 F)-37.1 C (98.8 F)] 36.1 C (97 F) Pulse: [81-95] 90 Resp: [16-20] 19 BP: (96-130)/(50-70) 120/55 Vitals: Temp: 36.1 C (97 F) BP: 120/55 Pulse: 90 Resp: 19 SpO2: 96 %(S itting in chair.) SpO2 96 %(Sitting in chair.) on nasal cannula at flow rate 3(Decreased from 4 liters)L/min Subjective CC falls Pain stable, no fevers or chills, no shortness of breath, tolerating blood transfusion. No hematochezia noted, declined covid swab, no other acute complaints at this time, other 10 po int ROS negative. ROS See above Exam GEN: in NAD, cachectic, hard of hearing HEENT: External ears/nose unremarkable. PERRL/EOMI. Oropharynx unremarkable NECK: Supple, no thyromegaly or lyphadenopathy CV: RRR, no M/R/G. Peripheral pulses 2+ and equal bilaterally. No JVD. PUL: CTA bilaterally, no wheeze/rhonchi/rales ABD: Soft, ND, NT, with normal bowel tones in all quadrants EXT: No clubbing, cyanosis, or edema noted NEURO: No focal deficits, moving all extremities PSYCH: Alert, oriented, with normal mood and affect. SKIN: Skin tear to back covered, no surrounding infection, bruising resolving Assessment and Hospital Course Active Hospital Problems Diagnosis Iron deficiency anemia due to chronic blood loss Fall Generalized anxiety disorder Hypertension Arm DVT (deep venous thromboembolism), acute, left Coronary artery disease involving [place] coronary artery of [place] heart without angina pectoris Resolved Hospital Problems No resolved problems to display. Plan Acute on chronic blood loss anemia - ongoing -hx AVMs, need for recurrent transfusions, has been on Eliquis at home for LUE DVT -recheck in am, transfusion threshold <8 -received one unit on 02/27, one unit on 03/01 LUE DVT -holding eliquis at this time given bleed, will likely hold at discharge -repeat LUE doppler US negative for clot Esophageal dysphagia -continue minced and moist diet, family declining further MBSS at this time -recommendation for outpatient manometry, possible achalasia Chronic hypoxic respiratory failure -continue home O2 use 3-4L, pulmicort, nebs C2 R lamina fracture -NS consulted, stable, conservative treatment, collar cleared Sacral ulcers -continue wound care, consult placed, prophylactic Amoxicillin -Bactrim added, will continue -pike in at this time for wound healing Falls, multiple old fractures -PT/OT -chronic pain component -CM pursuing APS referral Essential HTN -continue Coreg, switched to 3.125 given recent falls Systolic CHF, CAD -continue lasix, switched to home dose 20mg -continue lipitor Severe protein calorie malnutrition -dietary consult placed DVT prophylaxis: scds Saman Alcocer DO 03/01/2020 2:00 PM [facility] Portions of this chart may have been created with [employer] voice recognition software. Occasi onal wrong-word or sound-alike substitutions may have occurred due to the inherent owen itations of voice recognition software. Please read the chart carefully and recognize, using context, where these substitutions have occurred Valdo Zheng MD - 02/29/2020 11:01 AM PDTPt continues confusion Bruising along back stable hct stable after 1 unit prbc Will sign off from gen surg perspective Mgt per hospitalist Saman Barragan DO - 02/29/2020 10:32 AM PDT [facility] HOSPITALIST PROGRESS NOTE Patient: Ángela Crowley : 1930: Age: 89 y.o. MedRec: [id number] Admission date: 02/27/2020 Hospital day # : 2 Physician author: Saman Alcocer DO Today: 02/29/2020 Allergies: Allergies Allergen Reactions Flagyl [Metronidazole] Nausea And Vomiting and GI Upset Percocet [Oxycodone] Unknown Pregabalin Unknown Lyrica Current Medications: Current Facility-Administered Medications Medication Dose Route Frequency Provider Last Rate Last Dose acetaminophen (TYLENOL) tablet 500 mg 500 mg Oral Q6H PRN Aida Mills MD 500 mg at 02/29/20 0907 albuterol-ipratropium 2.5-0.5 mg/3 mL nebulizer solution 3 mL 3 mL Nebulization RT Q8H Aida Mills MD 3 mL at 02/29/20 0755 amoxicillin-clavulanate (AUGMENTIN) 875-125 mg per tablet 1 tablet 1 tablet Oral BID N Mariya Mills MD 1 tablet at 02/29/20 0900 atorvaSTATin (LIPITOR) tablet 20 mg 20 mg Oral Nightly Aida Mills MD 20 mg at 02/04 budesonide (PULMICORT) nebulizer solution 0.5 mg 0.5 mg Nebulization BID Aida Mills MD 0.5 mg at 02/29/20 075 carvedilol (COREG) tablet 6.25 mg 6.25 mg Oral BID WC Aida Mills MD 6.25 mg at 0900 collagenase (SANTYL) ointment Topical See Admin Instructions Aida Mills MD dicyclomine (BENTYL) capsule 10 mg 10 mg Oral Daily PRN Aida Mills MD dorzolamide (TRUSOPT) 2% ophthalmic solution 1 drop 1 drop Both Eyes BID Aida Mills MD 1 drop at 02/29/20 0901 escitalopram (LEXAPRO) tablet 15 mg 15 mg Oral Daily Aida Mills MD 15 mg at 0900 famotidine (PEPCID) tablet 20 mg 20 mg Oral Daily Deisy Alcocer PharmD 20 mg at 02/29/20 0922 ferrous sulfate tablet 325 mg 325 mg Oral Daily with breakfast Aida Mills MD 325 m g at 02/29/20 0902 [START ON 03/01/2020] furosemide (LASIX) tablet 20 mg 20 mg Oral Daily Saman levin DO HYDROcodone-acetaminophen (NORCO) 5-325 mg per tablet 1 tablet 1 tablet Oral Q4H PRN Subha Carvajal MD 1 tablet at 02/29/20 0907 lactobacillus GG (CULTURELLE) capsule 1 capsule 1 capsule Oral BID Aida Mills MD 1 capsule at 02/29/20 0900 latanoprost (XALATAN) 0.005% ophthalmic solution 1 drop 1 drop Both Eyes Nightly Gagandeep Mills MD 1 drop at 02/28/202124 nystatin (MYCOSTATIN) cream Topical BID PRN Aida Mills MD pantoprazole (PROTONIX) DR tablet 40 mg 40 mg Oral QAM AC Aida Mills MD 40 mg at 0 02/29/20 0645 polyvinyl alcohol (LIQUITEARS) 1.4% ophthalmic solution 2 drop 2 drop Both Eyes QAM Vivi Mills MD 2 drop at 02/29/20 0902 senna (SENOKOT) tablet 8.6 mg 8.6 mg Oral BID PRN Aida Mills MD sodium chloride (OCEAN) 0.65% nasal spray 2 spray 2 spray Each Nare Q2H PRN Aida hernandez MD sulfamethoxazole-trimethoprim (BACTRIM DS) 800-160 mg per tablet 1 tablet 1 tablet Ora l BID Keyur Carvajal MD 1 tablet at 02/29/20 0900 Current Infusions: Objective Data Point of care glucose Recent Labs Lab 02/24/20 1232 02/24/20 0614 02/23/20 2036 02/23/20 1623 02/23/20 1139 02/23/20 0702 POCGLU 75 89 147* 180* 116* 86 Labs last 24 hours Recent Results (from the past 24 hour(s)) Hemoglobin and Hematocrit Collection Time: 02/28/20 12:28 PM Result Value Ref Range Hematocrit 25.1 (L) 34.0 - 47.0 % Hemoglobin 7.6 (L) 11.5 - 16.0 g/dL Red Blood Cells (PRBC) - Crossmatch Collection Time: 02/28/20 2:14 PM Result Value Ref Range Product Code Y2436I29 UNIT # [id number] UNIT ABO A UNIT RH POS CROSSMATCH INTERP Compatible Unit Status Issued Blood Product Expiration Date and Time Product Blood Type Barcode 6200 Hemoglobin and Hematocrit Collection Time: 02/28/20 8:49 PM Result Value Ref Range Hematocrit 28.0 (L) 34.0 - 47.0 % Hemoglobin 8.9 (L) 11.5 - 16.0 g/dL Occult Blood, Stool, Specimen 1 Collection Time: 02/29/20 3:52 AM Result Value Ref Range Occult Blood in 1st Specimen, Stool Positive CBC with Differential Collection Time: 02/29/20 4:17 AM Result Value Ref Range WBC 9.7 4.0 - 11.0 K/uL RBC 2.86 (L) 3.70 - 5.20 M/uL Hemoglobin 8.5 (L) 11.5 - 16.0 g/dL Hematocrit 28.2 (L) 34.0 - 47.0 % MCV 98.6 83.0 - 101.0 fL MCH 29.7 28.0 - 35.0 pg MCHC 30.1 (L) 32.0 - 36.0 g/dL RDW-CV 17.9 (H) <15.0 % RDW-SD 64.0 (H) 35.1 - 46.3 fL Platelet Count 152 140 - 440 K/uL MPV 10.7 6.5 - 12.4 fL % Neutrophils 75.1 45.0 - 82.0 % % Lymphocytes 11.7 (L) 20.0 - 45.0 % % Monocytes 10.9 4.0 - 12.0 % % Eosinophils 1.7 0.0 - 5.0 % % Basophils 0.2 0.0 - 1.0 % % Immature Granulocytes 0.4 0.0 - 0.4 % Absolute Neutrophils 7.31 1.80 - 8.50 K/uL Absolute Lymphocytes 1.14 0.60 - 3.20 K/uL Absolute Monocytes 1.06 (H) 0.00 - 1.00 K/uL Absolute Eosinophils 0.17 0.00 - 0.40 K/uL Absolute Basophils 0.02 0.00 - 0.10 K/uL Absolute Immature Granulocytes 0.04 (H) 0.00 - 0.03 K/uL % nRBC 0 0 - 2 per 100 WBCs Absolute nRBC 0.00 0.00 - 0.01 K/uL Basic Metabolic Panel Collection Time: 02/29/20 4:17 AM Result Value Ref Range Na 142 136 - 145 mmol/L K 4.2 3.4 - 5.1 mmol/L Cl 108 (H) 98 - 107 mmol/L CO2 31 20 - 31 mmol/L Anion Gap 3 3 - 16 mmol/L Glucose 80 60 - 106 mg/dL BUN 25 (H) 9 - 23 mg/dL Creatinine 0.75 0.55 - 1.02 mg/dL eGFR if not >60 >=60 mL/min/1.73m2 Calcium 8.3 (L) 8.7 - 10.4 mg/dL BUN/Creatinine Ratio 33.3 B Type Natriuretic Peptide Collection Time: 02/29/20 4:17 AM Result Value Ref Range BNP 601 (H) <100 pg/mL Micro results Microbiology Results (72 hrs) No results found for the last 72 hours. Radiology results Xr Knee Left 1 - 2 Vw Result Date: 02/27/2020 XR KNEE LEFT 1 - 2 VW 02/27/2020 12:20 PM HISTORY: left knee pain. COMPARISON: None. FINDING S: There are no acute osseous findings. Mild to moderate medial and lateral compartment join t space loss are present. There are small osteophytes of all compartments. Bone mineralizati on is decreased. There is a tiny joint effusion. Extensive atherosclerosis is present. High density material overlaps with the patellar tendon. No acute osseous findings. Mild to moderate degenerative change. Dictated and Signed by: Josse Rodriguez MD Electronically signed: 02/27/2020 6:13 PM Xr Knee Right 1 - 2 Vw Result Date: 02/27/2020 XR KNEE RIGHT 1 - 2 VW 02/27/2020 12:20 PM HISTORY: knee pain. COMPARISON: None. FINDINGS: T here are no acute osseous findings. Severe lateral compartment joint space loss is present. There are moderate osteophytes of the lateral and patellofemoral compartments. Bone minerali zation is decreased. There is extensive atherosclerosis. 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 No acute osseous findings. Advanced degenerative changes. Dictated and Signed by: Patrick clarke MD Electronically signed: 02/27/2020 6:[address] Chest Abdomen Pelvis Wo Contrast Result Date: 02/27/2020 CT CHEST ABDOMEN PELVIS WO CONTRAST 02/27/2020 12:42 PM CLINICAL INFORMATION: Head trauma, m inor (Age > 65y). GLF COMPARISON: CT CHEST WO CONTRAST (02/09/2020); CT CHEST ABDOMEN PELVIS W CONTRAST (01/31/2020); CT CHEST WO CONTRAST (12/01/2019); CT ABDOMEN PELVIS W CONTRAST (2019); PROCEDURE: Axial images through the chest, abdomen and pelvis. Multiplanar reconstruc tions. At least one of the following CT dose optimization techniques were used: Automated ex posure control; Adjustment of mA and/or kV according to patient size; Use of iterative recon struction technique. FINDINGS: CHEST Lungs, Pleura and Airways: Increasing ground-glass opac ity and centrilobular nodules in the right upper lobe. Stable to improved reticulonodular o pacity in the right lower lobe and right middle lobe. Several ground-glass nodular opacities in the left upper lobe have increased. Bronchial wall thickening. Trace right pleural eff usion, decreased in volume compared to 02/09/2020. Mediastinum: Status post TAVR. Advanced co ronary calcification. Lymph Nodes: No adenopathy. ABDOMEN Solid organ evaluation suboptimal without contrast. Liver and Biliary: Postsurgical findings at the gallbladder fossa. Common bile duct measures up to 20 mm tapering to 11 mm without definite choledocholithiasis. Pancr eas, Spleen and Adrenals: Spleen and adrenal glands have a stable appearance. Pancreatic du ct volume has slightly decreased compared to the 01/31/2020 study. No definite discrete panc reatic mass, accounting for lack of contrast administration. Kidneys: Hyperdense renal cysts bilaterally, as before. No hydronephrosis. No ureteral stone. ABDOMEN AND PELVIS Bowel: I nterval increase in inflammatory changes at the rectosigmoid junction at the level or near t he level of a surgical anastomosis. Colitis/proctitis is again suggested with some interval worsening. There is some probable wall thickening. While there is no definite intramural ab scess (contrast was not administered), intramural phlegmon is a possibility. There is some extraluminal gas and fluid in the presacral space measuring approximately 4 cm (87/602), ret rospectively similar to 01/31/2020. While this could represent changes from end-to-side anas tomosis (with blind-ending pouch), the findings do raise suspicion for abscess in the presac ral region and raise suspicion for anastomotic breakdown or leak, in the appropriate clinica l setting. Rectal tumor is not entirely excluded on the current study. Background diverticu losis. The appendix is not well visualized but there is no evidence for right lower quadran t inflammation. Stomach and small bowel have a benign appearance. Vessels: 2.8 cm abdominal aorta. Advanced calcification in the aorta. Lymph Nodes: No adenopathy. Peritoneum and Ret roperitoneum: Inflammation in the mesorectal fat, increased since the prior study. There is some wall thickening. Mass lesion not excluded. Intramural abscess also not excluded. PEL VIS Genitourinary: Distal ureters and bladder appear normal. No pelvic masses. BODY WALL So ft Tissues: No bowel or inflamed fat containing hernia, mass or hemorrhage. Bones: Old right 8th rib fracture. There are multiple old left-sided rib fractures. Inferior pubic ramus f racture on the right side, likely subacute, as previously described. No definite acute frac ture. IMPRESSION- 1. No definite acute fracture. Multiple old rib deformities. Subacute ri ght inferior pubic ramus fracture, as previously described. 2. Accounting for unenhanced ayleen ging, no definite acute solid organ injury. 3. Slight interval increase in pulmonary parench ymal opacities on the right side compared to the prior study, likely inflammatory or infecti ous. 4. Trace right pleural effusion, nonhemorrhagic. No pneumothorax. 5. Interval increase in inflammatory changes at the rectosigmoid junction at the level or near the level of a hoyos rgical anastomosis. Colitis/proctitis is again suggested with some interval worsening. There is some probable wall thickening. While there is no definite intramural abscess (contrast was not administered), intramural phlegmon is a possibility. There is some extraluminal gas and fluid in the presacral space measuring approximately 4 cm (87/602), retrospectively sim ilar to 01/31/2020. While this could represent changes from end-to-side anastomosis (with bl ind-ending pouch), the findings do raise suspicion for abscess in the presacral region and r aise suspicion for anastomotic breakdown or leak, in the appropriate clinical setting. Recta l tumor is not entirely excluded on the current study. 6. Please see above for other inciden aidee and chronic findings. A preliminary report was sent by [facility] with no significan t discrepancy on 02/27/2020 1:19 PM. Dictated and Signed by: Patrick Rodriguez MD Electronically signed: 02/27/2020 1:54 PM 1. No definite acute fracture. Multiple old rib deformities. Subacute right inferior pubi c ramus fracture, as previously described. 2. Accounting for unenhanced imaging, no definite acute solid organ injury. 3. Slight interval increase in pulmonary parenchymal opacities on the right side compared to the prior study, likely inflammatory or infectious. 4. Trace rig ht pleural effusion, nonhemorrhagic. No pneumothorax. 5. Interval increase in inflammatory changes at the rectosigmoid junction at the level or near the level of a surgical anastomosi s. Colitis/proctitis is again suggested with some interval worsening. There is some probable wall thickening. While there is no definite intramural abscess (contrast was not administe red), intramural phlegmon is a possibility. There is some extraluminal gas and fluid in the presacral space measuring approximately 4 cm (87/602), retrospectively similar to 01/31/2020 . While this could represent changes from end-to-side anastomosis (with blind-ending pouch) , the findings do raise suspicion for abscess in the presacral region and raise suspicion fo r anastomotic breakdown or leak, in the appropriate clinical setting. Rectal tumor is not en tirely excluded on the current study. 6. Please see above for other incidental and chronic f indings. Signed by: Geni Copeland Joel Sign Date/Time: 02/27/2020 1:[address] Head Wo Contrast Result Date: 02/27/2020 CT HEAD WO CONTRAST 02/27/2020 12:42 PM CLINICAL INFORMATION: Head trauma, abnormal mental s tatus.; Neck pain, recent trauma. Neck pain, s/p fall COMPARISON: Reviewed with comparison t o 02/26/2020. PROCEDURE: CT Head: Axial non-contrast images were obtained through the head. C T Cervical Spine: Thin section noncontrast axial images were obtained through the cervical s pine. Multiplanar reformations were obtained from the acquisition data. At least one of the following CT dose optimization techniques were used: Automated exposure control; Adjustment of mA and/or kV according to patient size; Use of iterative reconstruction technique. FINDIN GS: CT Head: Brain: No intracranial hemorrhage, midline shift or pathologic mass effect. No cerebral edema, mass lesion, or evidence of infarct. Substance loss and white matter changes as on the prior study. Focal encephalomalacia of the left occipital lobe likely due to chinyere or area of infarction. Stable. Potential previous lacunar infarcts. Stable. Ventricles an d extra-axial fluid spaces: No abnormal extra-axial fluid collections. Paranasal sinuses and mastoid air cells: Normal. Calvarium and extracranial soft tissue: Thickening of the right frontal parasagittal calvarium. Stable. Orbits: Imaged portions of the orbits are normal. C T Cervical Spine: Alignment: Normal. Vertebrae: Nondisplaced fractures are visualized along the anterior lamina of C2 bilaterally (series 5 image 55). Extensive spondylosis is observed . Cervical disc levels: Multilevel moderate to severe disc narrowing are noted. Facets and p osterior spinal elements: No facet subluxation, dislocation, fracture, or evidence of acute abnormality. Multilevel degenerative changes. Paraspinal soft tissues: No evidence of acute paraspinal soft tissue abnormality. IMPRESSION- 1. No acute intracranial hemorrhage or mass effect. 2. Nondisplaced fractures are visualized along the anterior lamina of C2 bilaterall y (series 5 image 55). A preliminary report was sent by [facility] on 02/27/2020 1:18 PM . This did not mention the nondistended fractures involving the anterior lamina of C2 bilate rally. This information was conveyed to Dr. Lux. Dictated and Signed by: Patrick Rodriguez MD Electronically signed: 02/27/2020 1:40 PM 1. No acute intracranial hemorrhage or mass effect. 2. No acute cervical spine fracture. Si gned by: Geni Garibay, Francesco Sign Date/Time: 02/27/2020 1:[address] Cervical Spine Wo Contrast Result Date: 02/27/2020 CT CERVICAL SPINE WO CONTRAST 02/27/2020 12:42 PM CLINICAL INFORMATION: Head trauma, abnorma l mental status.; Neck pain, recent trauma. Neck pain, s/p fall COMPARISON: Reviewed with co mparison to 02/26/2020. PROCEDURE: CT Head: Axial non-contrast images were obtained through t he head. CT Cervical Spine: Thin section noncontrast axial images were obtained through the cervical spine. Multiplanar reformations were obtained from the acquisition data. At least o ne of the following CT dose optimization techniques were used: Automated exposure control; A djustment of mA and/or kV according to patient size; Use of iterative reconstruction techniq ue. FINDINGS: CT Head: Brain: No intracranial hemorrhage, midline shift or pathologic mass e ffect. No cerebral edema, mass lesion, or evidence of infarct. Substance loss and white sri er changes as on the prior study. 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 Stable. Potential previous lacunar infarcts. Stable. Nino tricles and extra-axial fluid spaces: No abnormal extra-axial fluid collections. Paranasal s inuses and mastoid air cells: Normal. Calvarium and extracranial soft tissue: Thickening of the right frontal parasagittal calvarium. Stable. Orbits: Imaged portions of the orbits are normal. CT Cervical Spine: Alignment: Normal. Vertebrae: Nondisplaced fractures are visuali zed along the anterior lamina of C2 bilaterally (series 5 image 55). Extensive spondylosis i s observed. Cervical disc levels: Multilevel moderate to severe disc narrowing are noted. Fa cets and posterior spinal elements: No facet subluxation, dislocation, fracture, or evidence of acute abnormality. Multilevel degenerative changes. Paraspinal soft tissues: No evidenc e of acute paraspinal soft tissue abnormality. IMPRESSION- 1. No acute intracranial hemorrha ge or mass effect. 2. Nondisplaced fractures are visualized along the anterior lamina of C2 bilaterally (series 5 image 55). A preliminary report was sent by [facility] on 02/27/20 20 1:18 PM. This did not mention the nondistended fractures involving the anterior lamina of C2 bilaterally. This information was conveyed to Dr. Lux. Dictated and Signed by: Patrick Rodriguez MD Electronically signed: 02/27/2020 1:42 PM 1. No acute intracranial hemorrhage or mass effect. 2. No acute cervical spine fracture. Si gned by: Geni Garibay, Francesco Sign Date/Time: 02/27/2020 1:18 PM Vitals Ranges: Temp: [36.4 C (97.5 F)-37.2 C (98.9 F)] 36.8 C (98.2 F) Pulse: [80-101] 90 Resp: [18-20] 20 BP: (112-157)/(53-74) 125/74 Vitals: Temp: 36.8 C (98.2 F) BP: 125/74 Pulse: 90 Resp: 20 SpO2: 98 % SpO2 98 % on nasal cannula with humidification at flow rate 4L/min Subjective CC falls Notes to still have chronic back pain, no chest pain, no SOB, tolerating diet, pike in nathalie ce, no constitutional symptoms, normal bowel function, other 10 point ROS negative. ROS See above Exam GEN: Pleasant, cooperative, in NAD, cachectic, hard of hearing HEENT: External ears/nose unremarkable. PERRL/EOMI. Oropharynx unremarkable NECK: Supple, no thyromegaly or lyphadenopathy CV: RRR, no M/R/G. Peripheral pulses 2+ and equal bilaterally. No JVD. PUL: CTA bilaterally, no wheeze/rhonchi/rales ABD: Soft, ND, NT, with normal bowel tones in all quadrants EXT: No clubbing, cyanosis, or edema noted NEURO: No focal deficits, moving all extremities PSYCH: Alert, oriented, with normal mood and affect. SKIN: No visible bruises, rashes, or petechia noted on exposed skin. Assessment and Hospital Course Active Hospital Problems Diagnosis Iron deficiency anemia due to chronic blood loss Fall Generalized anxiety disorder Hypertension Arm DVT (deep venous thromboembolism), acute, left Coronary artery disease involving [place] coronary artery of [place] heart without angina pectoris Resolved Hospital Problems No resolved problems to display. Plan Acute on chronic blood loss anemia -hx AVMs, need for recurrent transfusions, has been on Eliquis at home for LUE DVT -recheck in am, transfusion threshold <8 -received one unit on 02/27 LUE DVT -holding eliquis at this time given bleed -repeat LUE doppler US ordered and pending Esophageal dysphagia -continue minced and moist diet, family declining further MBSS at this time -recommendation for outpatient manometry, possible achalasia Chronic hypoxic respiratory failure -continue home O2 use 3-4L, pulmicort, nebs Sacral ulcers -continue wound care, prophylactic Amoxicillin -Bactrim added, will continue Falls, multiple old fractures -PT/OT -chronic pain component -CM pursuing APS referral Essential HTN -continue Coreg, switched to 3.125 given recent falls Systolic CHF, CAD -continue lasix, switched to home dose 20mg -continue lipitor Severe protein calorie malnutrition -dietary consult placed DVT prophylaxis: scds Saman Alcocer DO 02/29/2020 10:32 AM [facility] Portions of this chart may have been created with [employer] voice recognition software. Occasi onal wrong-word or sound-alike substitutions may have occurred due to the inherent owen itations of voice recognition software. Please read the chart carefully and recognize, using context, where these substitutions have occurred Tavia Castellanos [facility], [place] - 02/29/2020 9:03 AM PDTFormatting of this note might be different fro m the original. RENAL DOSE ADJUSTMENT PER PHARMACY PROTOCOL: Subjective/Objective: Ángela Crowley is a 89 y.o. year old female admitted on 02/27/2020 12:07 PM and is rece iving FAMOTIDINE BP 125/74 | Pulse 90 | Temp 36.8 C (98.2 F) (Oral) | Resp 20 | SpO2 98% | Breastfe eding No Intake/Output Summary (Last 24 hours) at 02/29/2020 0858 Last data filed at 02/29/2020 0600 Gross per 24 hour Intake 1140 ml Output 1550 ml Net -410 ml Recent Labs Lab 02/29/20 0417 02/28/20 0438 02/27/20 1231 CREA 0.75 0.91 1.11* Estimated Creatinine Clearance: 37 mL/min (based on SCr of 0.75 mg/dL). Date Day of therapy Creatinine CrCl (mL/min) Dose-current Dose-new 02/27/20 1 1.11 25 40 mg q24hr 20 mg q48hr 02/28/20 2 0.91 30 20 mg q48hr 20 mg q48hr 02/29/20 3 0.75 37 20 mg q48hr 20 mg q24hr Assessment/Plan: For creatinine clearance <30-60 mL/min, continue dose and decrease interval of FAMOTIDINE a s above. Pharmacy will continue to follow and adjust dose as appropriate to clinical condition and c reatinine clearance changes RENAL DOSE ADJUSTMENT PROTOCOL Electronically signed by: Vikki Gonzáles, [place] 02/29/2020 8:58 AM Associated attestation - Deisy Alcocer, PharmD - 02/29/2020 9:06 AM PDTPatient was see n and evaluated by both me and paid intern. Case was reviewed/discussed with paid intern and agree wit h paid intern's findings and plan as documented in the note. Deisy Alcocer PharmD 02/29/2020 9:06 AM Keyur Carvajal MD - 02/28/2020 9:30 PM PDT [facility] Hospitalist Progress Note Ángela Crowley is a 89 y.o. female ASSESSMENT and PLAN: 1. History of recurrent falls Thus with the patient's son her history of falls and the patient does always ambulate with her walker. The first fall the day following discharge was more 1 associated with sliding f rom a chair. The one that resulted in this admission she had ambulated with her walker with out advising her son had a fall with the abrasion. She has a small skin tear on her flank o n the right side associated with surrounding ecchymosis has ecchymosis in her left flank. I n discussion with neurosurgery they believe this is a recent fall has an acute appearance to it with nondisplaced fracture along the anterior lamina of C2 bilaterally. Thought that th is represents a stable normality and they are not recommending any bracing. she was on apixa ban at the time of her fall. PT OT has been ordered to work with patient relative to safe ambulation. Apixaban was held at the time of admission and a follow-up left upper extremity ultrasound has been ordered t o look for DVT. 2. COPD Currently stable with respect to respiratory status on exam today. 3. Acute blood loss anemia Socially with soft tissue hematomas. Patient received 1 unit packed red blood cell transfu shelli with improvement in hemoglobin to 8.9 and will repeat blood counts in the a.m. 4. Sacral pressure sore, stage III Will continue current wound care. Ask dietitian to reassess in the a.m. SUBJECTIVE: Seen today Ángela has had confusion and did receive some IV fentanyl her son reports he has noted significant confusion associated with. She does report back pain but denies neck pain associated with her fracture. Denies feeling short of breath. VITALS: Temp: 37.2 C (98.9 F), Pulse: 98, Resp: 18, BP: 157/59, SpO2 97 % on nasal cannula with humidification at flow rate 4L/min Temp Min: 36.3 C (97.4 F) Max: 37.2 C (98.9 F) Intake/Output Summary (Last 24 hours) at 02/28/20202129 Last data filed at 02/28/2020 2100 Gross per 24 hour Intake 1430 ml Output 2200 ml Net -770 ml PHYSICAL EXAM: General: Without dyspnea or anxiety currently Cardiovascular: Regular rate and rhythm Respiratory: Diminished bilaterally but without wheezes or crackles noted Them along her back reveals bilateral ecchymosis right greater than left and the right ecchymosis associated with the abrasion injury approximately the size of a quarter which has a pink foam pad over it Extremities: without edema DIAGNOSTIC STUDIES: Available data and images were reviewed personally. Significant results and findings are a ddressed here or in the Assessment and Plan. Lab Results Component Value Date HGB 8.9 (L) 02/28/2020 HCT 28.0 (L) 02/28/2020 PLT 153 02/28/2020 WBC 8.4 02/28/2020 Lab Results Component Value Date NA 140 02/28/2020 K 4.1 02/28/2020 CL 106 02/28/2020 CO2 31 02/28/2020 CREA 0.91 02/28/2020 BUN 30 (H) 02/28/2020 MG 2.1 02/28/2020 CRP 22.20 (H) 02/27/2020 ESR 4 06/06/2019 BNP 917 (H) 02/27/2020 Glucose, POC Date/Time Value Ref Range Status 02/24/2020 12:32 PM 75 70 - 109 mg/dL Final 02/24/2020 06:14 AM 89 70 - 109 mg/dL Final 02/23/2020 08:36 PM 147 (H) 70 - 109 mg/dL Final Glucose, POC Date/Time Value Ref Range Status 02/24/2020 12:32 PM 75 70 - 109 mg/dL Final 02/24/2020 06:14 AM 89 70 - 109 mg/dL Final 02/23/2020 08:36 PM 147 (H) 70 - 109 mg/dL Final Xr Knee Left 1 - 2 Vw Result Date: 02/27/2020 XR KNEE LEFT 1 - 2 VW 02/27/2020 12:20 PM HISTORY: left knee pain. COMPARISON: None. FINDING S: There are no acute osseous findings. Mild to moderate medial and lateral compartment join t space loss are present. There are small osteophytes of all compartments. Bone mineralizati on is decreased. There is a tiny joint effusion. Extensive atherosclerosis is present. High density material overlaps with the patellar tendon. No acute osseous findings. Mild to moderate degenerative change. Dictated and Signed by: Josse Rodriguez MD Electronically signed: 02/27/2020 6:13 PM Xr Knee Right 1 - 2 Vw Result Date: 02/27/2020 XR KNEE RIGHT 1 - 2 VW 02/27/2020 12:20 PM HISTORY: knee pain. COMPARISON: None. FINDINGS: T here are no acute osseous findings. Severe lateral compartment joint space loss is present. There are moderate osteophytes of the lateral and patellofemoral compartments. Bone minerali zation is decreased. There is extensive atherosclerosis. 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 No acute osseous findings. Advanced degenerative changes. Dictated and Signed by: Patrick clarke MD Electronically signed: 02/27/2020 6:[address] Chest Abdomen Pelvis Wo Contrast Result Date: 02/27/2020 CT CHEST ABDOMEN PELVIS WO CONTRAST 02/27/2020 12:42 PM CLINICAL INFORMATION: Head trauma, m inor (Age > 65y). GLF COMPARISON: CT CHEST WO CONTRAST (02/09/2020); CT CHEST ABDOMEN PELVIS W CONTRAST (01/31/2020); CT CHEST WO CONTRAST (12/01/2019); CT ABDOMEN PELVIS W CONTRAST (2019); PROCEDURE: Axial images through the chest, abdomen and pelvis. Multiplanar reconstruc tions. At least one of the following CT dose optimization techniques were used: Automated ex posure control; Adjustment of mA and/or kV according to patient size; Use of iterative recon struction technique. FINDINGS: CHEST Lungs, Pleura and Airways: Increasing ground-glass opac ity and centrilobular nodules in the right upper lobe. Stable to improved reticulonodular o pacity in the right lower lobe and right middle lobe. Several ground-glass nodular opacities in the left upper lobe have increased. Bronchial wall thickening. Trace right pleural eff usion, decreased in volume compared to 02/09/2020. Mediastinum: Status post TAVR. Advanced co ronary calcification. Lymph Nodes: No adenopathy. ABDOMEN Solid organ evaluation suboptimal without contrast. Liver and Biliary: Postsurgical findings at the gallbladder fossa. Common bile duct measures up to 20 mm tapering to 11 mm without definite choledocholithiasis. Pancr eas, Spleen and Adrenals: Spleen and adrenal glands have a stable appearance. Pancreatic du ct volume has slightly decreased compared to the 01/31/2020 study. No definite discrete panc reatic mass, accounting for lack of contrast administration. Kidneys: Hyperdense renal cysts bilaterally, as before. No hydronephrosis. No ureteral stone. ABDOMEN AND PELVIS Bowel: I nterval increase in inflammatory changes at the rectosigmoid junction at the level or near t he level of a surgical anastomosis. Colitis/proctitis is again suggested with some interval worsening. There is some probable wall thickening. While there is no definite intramural ab scess (contrast was not administered), intramural phlegmon is a possibility. There is some extraluminal gas and fluid in the presacral space measuring approximately 4 cm (87/602), ret rospectively similar to 01/31/2020. While this could represent changes from end-to-side anas tomosis (with blind-ending pouch), the findings do raise suspicion for abscess in the presac ral region and raise suspicion for anastomotic breakdown or leak, in the appropriate clinica l setting. Rectal tumor is not entirely excluded on the current study. Background diverticu losis. The appendix is not well visualized but there is no evidence for right lower quadran t inflammation. Stomach and small bowel have a benign appearance. Vessels: 2.8 cm abdominal aorta. Advanced calcification in the aorta. Lymph Nodes: No adenopathy. Peritoneum and Ret roperitoneum: Inflammation in the mesorectal fat, increased since the prior study. There is some wall thickening. Mass lesion not excluded. Intramural abscess also not excluded. PEL VIS Genitourinary: Distal ureters and bladder appear normal. No pelvic masses. BODY WALL So ft Tissues: No bowel or inflamed fat containing hernia, mass or hemorrhage. Bones: Old right 8th rib fracture. There are multiple old left-sided rib fractures. Inferior pubic ramus f racture on the right side, likely subacute, as previously described. No definite acute frac ture. IMPRESSION- 1. No definite acute fracture. Multiple old rib deformities. Subacute ri ght inferior pubic ramus fracture, as previously described. 2. Accounting for unenhanced ayleen ging, no definite acute solid organ injury. 3. Slight interval increase in pulmonary parench ymal opacities on the right side compared to the prior study, likely inflammatory or infecti ous. 4. Trace right pleural effusion, nonhemorrhagic. No pneumothorax. 5. Interval increase in inflammatory changes at the rectosigmoid junction at the level or near the level of a hoyos rgical anastomosis. Colitis/proctitis is again suggested with some interval worsening. There is some probable wall thickening. While there is no definite intramural abscess (contrast was not administered), intramural phlegmon is a possibility. There is some extraluminal gas and fluid in the presacral space measuring approximately 4 cm (87/602), retrospectively sim ilar to 01/31/2020. While this could represent changes from end-to-side anastomosis (with bl ind-ending pouch), the findings do raise suspicion for abscess in the presacral region and r aise suspicion for anastomotic breakdown or leak, in the appropriate clinical setting. Recta l tumor is not entirely excluded on the current study. 6. Please see above for other inciden aidee and chronic findings. A preliminary report was sent by [employer] with no significan t discrepancy on 02/27/2020 1:19 PM. Dictated and Signed by: Patrick Rodriguez MD Electronically signed: 02/27/2020 1:54 PM 1. No definite acute fracture. Multiple old rib deformities. Subacute right inferior pubi c ramus fracture, as previously described. 2. Accounting for unenhanced imaging, no definite acute solid organ injury. 3. Slight interval increase in pulmonary parenchymal opacities on the right side compared to the prior study, likely inflammatory or infectious. 4. Trace rig ht pleural effusion, nonhemorrhagic. No pneumothorax. 5. Interval increase in inflammatory changes at the rectosigmoid junction at the level or near the level of a surgical anastomosi s. Colitis/proctitis is again suggested with some interval worsening. There is some probable wall thickening. While there is no definite intramural abscess (contrast was not administe red), intramural phlegmon is a possibility. There is some extraluminal gas and fluid in the presacral space measuring approximately 4 cm (87/602), retrospectively similar to 01/31/2020 . While this could represent changes from end-to-side anastomosis (with blind-ending pouch) , the findings do raise suspicion for abscess in the presacral region and raise suspicion fo r anastomotic breakdown or leak, in the appropriate clinical setting. Rectal tumor is not en tirely excluded on the current study. 6. Please see above for other incidental and chronic f indings. Signed by: Geni Copeland Joel Sign Date/Time: 02/27/2020 1:[address] Head Wo Contrast Result Date: 02/27/2020 CT HEAD WO CONTRAST 02/27/2020 12:42 PM CLINICAL INFORMATION: Head trauma, abnormal mental s tatus.; Neck pain, recent trauma. Neck pain, s/p fall COMPARISON: Reviewed with comparison t o 02/26/2020. PROCEDURE: CT Head: Axial non-contrast images were obtained through the head. C T Cervical Spine: Thin section noncontrast axial images were obtained through the cervical s pine. Multiplanar reformations were obtained from the acquisition data. At least one of the following CT dose optimization techniques were used: Automated exposure control; Adjustment of mA and/or kV according to patient size; Use of iterative reconstruction technique. FINDIN GS: CT Head: Brain: No intracranial hemorrhage, midline shift or pathologic mass effect. No cerebral edema, mass lesion, or evidence of infarct. Substance loss and white matter changes as on the prior study. Focal encephalomalacia of the left occipital lobe likely due to chinyere or area of infarction. Stable. Potential previous lacunar infarcts. Stable. Ventricles an d extra-axial fluid spaces: No abnormal extra-axial fluid collections. Paranasal sinuses and mastoid air cells: Normal. Calvarium and extracranial soft tissue: Thickening of the right frontal parasagittal calvarium. Stable. Orbits: Imaged portions of the orbits are normal. C T Cervical Spine: Alignment: Normal. Vertebrae: Nondisplaced fractures are visualized along the anterior lamina of C2 bilaterally (series 5 image 55). Extensive spondylosis is observed . Cervical disc levels: Multilevel moderate to severe disc narrowing are noted. Facets and p osterior spinal elements: No facet subluxation, dislocation, fracture, or evidence of acute abnormality. Multilevel degenerative changes. Paraspinal soft tissues: No evidence of acute paraspinal soft tissue abnormality. IMPRESSION- 1. No acute intracranial hemorrhage or mass effect. 2. Nondisplaced fractures are visualized along the anterior lamina of C2 bilaterall y (series 5 image 55). A preliminary report was sent by [employer] on 02/27/2020 1:18 PM . This did not mention the nondistended fractures involving the anterior lamina of C2 bilate rally. This information was conveyed to Dr. Lux. Dictated and Signed by: Patrick Rodriguez MD Electronically signed: 02/27/2020 1:40 PM 1. No acute intracranial hemorrhage or mass effect. 2. No acute cervical spine fracture. Si gned by: Geni Garibay, Francesco Sign Date/Time: 02/27/2020 1:[address] Cervical Spine Wo Contrast Result Date: 02/27/2020 CT CERVICAL SPINE WO CONTRAST 02/27/2020 12:42 PM CLINICAL INFORMATION: Head trauma, abnorma l mental status.; Neck pain, recent trauma. Neck pain, s/p fall COMPARISON: Reviewed with co mparison to 02/26/2020. PROCEDURE: CT Head: Axial non-contrast images were obtained through t he head. CT Cervical Spine: Thin section noncontrast axial images were obtained through the cervical spine. Multiplanar reformations were obtained from the acquisition data. At least o ne of the following CT dose optimization techniques were used: Automated exposure control; A djustment of mA and/or kV according to patient size; Use of iterative reconstruction techn[employer]yze ue. FINDINGS: CT Head: Brain: No intracranial hemorrhage, midline shift or pathologic mass e ffect. No cerebral edema, mass lesion, or evidence of infarct. Substance loss and white sri er changes as on the prior study. 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 Stable. Potential previous lacunar infarcts. Stable. Nino tricles and extra-axial fluid spaces: No abnormal extra-axial fluid collections. Paranasal s inuses and mastoid air cells: Normal. Calvarium and extracranial soft tissue: Thickening of the right frontal parasagittal calvarium. Stable. Orbits: Imaged portions of the orbits are normal. CT Cervical Spine: Alignment: Normal. Vertebrae: Nondisplaced fractures are visuali zed along the anterior lamina of C2 bilaterally (series 5 image 55). Extensive spondylosis i s observed. Cervical disc levels: Multilevel moderate to severe disc narrowing are noted. Fa cets and posterior spinal elements: No facet subluxation, dislocation, fracture, or evidence of acute abnormality. Multilevel degenerative changes. Paraspinal soft tissues: No evidenc e of acute paraspinal soft tissue abnormality. IMPRESSION- 1. No acute intracranial hemorrha ge or mass effect. 2. Nondisplaced fractures are visualized along the anterior lamina of C2 bilaterally (series 5 image 55). A preliminary report was sent by [employer] on 02/27/20 1:18 PM. This did not mention the nondistended fractures involving the anterior lamina of C2 bilaterally. This information was conveyed to Dr. Lux. Dictated and Signed by: Patrick oRdriguez MD Electronically signed: 02/27/2020 1:42 PM 1. No acute intracranial hemorrhage or mass effect. 2. No acute cervical spine fracture. Si gned by: Geni Garibay Richard Sign Date/Time: 02/27/2020 1:18 PM Total time of approximately 25 minutes was spent with the patient and/or patient's family, and/or on the patient's floor/unit, of which more than 50% was spent counseling and/or coord ination the patient's care as outlined above. Keyur Carvajal MD 02/28/2020 9:30 PM [facility] Portions of this chart may have been created with [employer] voice recognition software. Occasi onal wrong-word or sound-alike substitutions may have occurred due to the inherent owen itations of voice recognition software. Please read the chart carefully and recognize, using context, where these substitutions have occurred Kyree Cazares RN - 02/28/2020 7:46 PM PDTPt's son Yadiel here when speech therapist came for eval. Son refu sed eval. He told this RN that his mother had been evaluated in January and that she tolerate d a normal consistency and there was no reason to repeat the eval. This RN explained to him that swallowing changes can occur with an acute fall and mental status changes. Son disagr michael, asked this RN to please contact MD and have him put his mother back on normal consisten cy. Yadiel called back later in the afternoon for an update. He stated "just to let you k now this phone call is being recorded." This RN explained that MD advanced to mechanical so ft but uncomfortable advancing further without a speech eval. Yadiel upset about this, rep eated again, "call the doctor and have him change this to a normal consistency." RN informmandeep montoya MD about situation. Latia Stout MD - 02/28/2020 7:15 PM PDTFormatting of this note might be diffe rent from the original. [facility] PROGRESS NOTE Patient: Ángela Crowley : 1930: Age: 89 y.o. MedRec: [id number] CSN: [id number] Admission date: 02/27/2020 Physician author: Latia Stout MD Today: 02/28/2020 Problem list: Active Hospital Problems Diagnosis Fall Resolved Hospital Problems No resolved problems to display. Admit diagnosis: Colitis Length of stay: 1 Surgery date: 08/20/2019 * No surgery found * Subjective: No complaint Objective: Pleasant sl confused No neck pain Abdomen benign Vitals with Comments 02/28/2020 02/28/2020 02/28/2020 02/28/2020 SYSTOLIC - 112 114 142 DIASTOLIC - 53 58 61 BP Comments - - - - Pulse - 90 87 101 Pulse Comments - - - - Temp - 98.2 97.9 97.5 Temp Comments - - - - Resp 20 20 18 20 Resp Comments - - - - Weight - - - - Height - - - - SPO2 - - 97 97 SPO2 Comments - - - - BMI - - - - Pain Score - - - - Pain Loc - - - - Pain Loc - - - - I/O: Date 02/27/201900 - 02/28/20 0700 02/28/20 07 - 02/29/20 0700 Shift 8866-8311 24 Hour Total 6288-0260 7836-1378 24 Hour Total INTAKE P.O. 290 290 450 450 P.O. 200 200 400 400 Water PO (mL) 90 90 50 50 Blood 350 350 Volume (Red Blood Cells (PRBC) - Transfuse) 350 350 Shift Total 290 290 800 800 OUTPUT Urine 950 950 Shift Total 950 950 NET -660 -660 800 800 Weight (kg) Xrays: Xr Knee Left 1 - 2 Vw Result Date: 02/27/2020 XR KNEE LEFT 1 - 2 VW 02/27/2020 12:20 PM HISTORY: left knee pain. COMPARISON: None. FINDING S: There are no acute osseous findings. Mild to moderate medial and lateral compartment join t space loss are present. There are small osteophytes of all compartments. Bone mineralizati on is decreased. There is a tiny joint effusion. Extensive atherosclerosis is present. High density material overlaps with the patellar tendon. No acute osseous findings. Mild to moderate degenerative change. Dictated and Signed by: Josse Rodriguez MD Electronically signed: 02/27/2020 6:13 PM Xr Knee Right 1 - 2 Vw Result Date: 02/27/2020 XR KNEE RIGHT 1 - 2 VW 02/27/2020 12:20 PM HISTORY: knee pain. COMPARISON: None. FINDINGS: T here are no acute osseous findings. Severe lateral compartment joint space loss is present. There are moderate osteophytes of the lateral and patellofemoral compartments. Bone minerali zation is decreased. There is extensive atherosclerosis. 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 No acute osseous findings. Advanced degenerative changes. Dictated and Signed by: Patrick clarke MD Electronically signed: 02/27/2020 6:[address] Chest Abdomen Pelvis Wo Contrast Result Date: 02/27/2020 CT CHEST ABDOMEN PELVIS WO CONTRAST 02/27/2020 12:42 PM CLINICAL INFORMATION: Head trauma, m inor (Age > 65y). GLF COMPARISON: CT CHEST WO CONTRAST (02/09/2020); CT CHEST ABDOMEN PELVIS W CONTRAST (01/31/2020); CT CHEST WO CONTRAST (12/01/2019); CT ABDOMEN PELVIS W CONTRAST (2019); PROCEDURE: Axial images through the chest, abdomen and pelvis. Multiplanar reconstruc tions. At least one of the following CT dose optimization techniques were used: Automated ex posure control; Adjustment of mA and/or kV according to patient size; Use of iterative recon struction technique. FINDINGS: CHEST Lungs, Pleura and Airways: Increasing ground-glass opac ity and centrilobular nodules in the right upper lobe. Stable to improved reticulonodular o pacity in the right lower lobe and right middle lobe. Several ground-glass nodular opacities in the left upper lobe have increased. Bronchial wall thickening. Trace right pleural eff usion, decreased in volume compared to 02/09/2020. Mediastinum: Status post TAVR. Advanced co ronary calcification. Lymph Nodes: No adenopathy. ABDOMEN Solid organ evaluation suboptimal without contrast. Liver and Biliary: Postsurgical findings at the gallbladder fossa. Common bile duct measures up to 20 mm tapering to 11 mm without definite choledocholithiasis. Pancr eas, Spleen and Adrenals: Spleen and adrenal glands have a stable appearance. Pancreatic du ct volume has slightly decreased compared to the 01/31/2020 study. No definite discrete panc reatic mass, accounting for lack of contrast administration. Kidneys: Hyperdense renal cysts bilaterally, as before. No hydronephrosis. No ureteral stone. ABDOMEN AND PELVIS Bowel: I nterval increase in inflammatory changes at the rectosigmoid junction at the level or near t he level of a surgical anastomosis. Colitis/proctitis is again suggested with some interval worsening. There is some probable wall thickening. While there is no definite intramural ab scess (contrast was not administered), intramural phlegmon is a possibility. There is some extraluminal gas and fluid in the presacral space measuring approximately 4 cm (87/602), ret rospectively similar to 01/31/2020. While this could represent changes from end-to-side anas tomosis (with blind-ending pouch), the findings do raise suspicion for abscess in the presac ral region and raise suspicion for anastomotic breakdown or leak, in the appropriate clinica l setting. Rectal tumor is not entirely excluded on the current study. Background diverticu losis. The appendix is not well visualized but there is no evidence for right lower quadran t inflammation. Stomach and small bowel have a benign appearance. Vessels: 2.8 cm abdominal aorta. Advanced calcification in the aorta. Lymph Nodes: No adenopathy. Peritoneum and Ret roperitoneum: Inflammation in the mesorectal fat, increased since the prior study. There is some wall thickening. Mass lesion not excluded. Intramural abscess also not excluded. PEL VIS Genitourinary: Distal ureters and bladder appear normal. No pelvic masses. BODY WALL So ft Tissues: No bowel or inflamed fat containing hernia, mass or hemorrhage. Bones: Old right 8th rib fracture. There are multiple old left-sided rib fractures. Inferior pubic ramus f racture on the right side, likely subacute, as previously described. No definite acute frac ture. IMPRESSION- 1. No definite acute fracture. Multiple old rib deformities. Subacute ri ght inferior pubic ramus fracture, as previously described. 2. Accounting for unenhanced ayleen ging, no definite acute solid organ injury. 3. Slight interval increase in pulmonary parench ymal opacities on the right side compared to the prior study, likely inflammatory or infecti ous. 4. Trace right pleural effusion, nonhemorrhagic. No pneumothorax. 5. Interval increase in inflammatory changes at the rectosigmoid junction at the level or near the level of a hoyos rgical anastomosis. Colitis/proctitis is again suggested with some interval worsening. There is some probable wall thickening. While there is no definite intramural abscess (contrast was not administered), intramural phlegmon is a possibility. There is some extraluminal gas and fluid in the presacral space measuring approximately 4 cm (87/602), retrospectively sim ilar to 01/31/2020. While this could represent changes from end-to-side anastomosis (with bl ind-ending pouch), the findings do raise suspicion for abscess in the presacral region and r aise suspicion for anastomotic breakdown or leak, in the appropriate clinical setting. Recta l tumor is not entirely excluded on the current study. 6. Please see above for other inciden aidee and chronic findings. A preliminary report was sent by [employer] with no significan t discrepancy on 02/27/2020 1:19 PM. Dictated and Signed by: Patrick Rodriguez MD Electronically signed: 02/27/2020 1:54 PM 1. No definite acute fracture. Multiple old rib deformities. Subacute right inferior pubi c ramus fracture, as previously described. 2. Accounting for unenhanced imaging, no definite acute solid organ injury. 3. Slight interval increase in pulmonary parenchymal opacities on the right side compared to the prior study, likely inflammatory or infectious. 4. Trace rig ht pleural effusion, nonhemorrhagic. No pneumothorax. 5. Interval increase in inflammatory changes at the rectosigmoid junction at the level or near the level of a surgical anastomosi s. Colitis/proctitis is again suggested with some interval worsening. There is some probable wall thickening. While there is no definite intramural abscess (contrast was not administe red), intramural phlegmon is a possibility. There is some extraluminal gas and fluid in the presacral space measuring approximately 4 cm (87/602), retrospectively similar to 01/31/2020 . While this could represent changes from end-to-side anastomosis (with blind-ending pouch) , the findings do raise suspicion for abscess in the presacral region and raise suspicion fo r anastomotic breakdown or leak, in the appropriate clinical setting. Rectal tumor is not en tirely excluded on the current study. 6. Please see above for other incidental and chronic f indings. Signed by: Geni Copeland Joel Sign Date/Time: 02/27/2020 1:[address] Head Wo Contrast Result Date: 02/27/2020 CT HEAD WO CONTRAST 02/27/2020 12:42 PM CLINICAL INFORMATION: Head trauma, abnormal mental s tatus.; Neck pain, recent trauma. Neck pain, s/p fall COMPARISON: Reviewed with comparison t o 02/26/2020. PROCEDURE: CT Head: Axial non-contrast images were obtained through the head. C T Cervical Spine: Thin section noncontrast axial images were obtained through the cervical s pine. Multiplanar reformations were obtained from the acquisition data. At least one of the following CT dose optimization techniques were used: Automated exposure control; Adjustment of mA and/or kV according to patient size; Use of iterative reconstruction technique. FINDIN GS: CT Head: Brain: No intracranial hemorrhage, midline shift or pathologic mass effect. No cerebral edema, mass lesion, or evidence of infarct. Substance loss and white matter changes as on the prior study. Focal encephalomalacia of the left occipital lobe likely due to chinyere or area of infarction. Stable. Potential previous lacunar infarcts. Stable. Ventricles an d extra-axial fluid spaces: No abnormal extra-axial fluid collections. Paranasal sinuses and mastoid air cells: Normal. Calvarium and extracranial soft tissue: Thickening of the right frontal parasagittal calvarium. Stable. Orbits: Imaged portions of the orbits are normal. C T Cervical Spine: Alignment: Normal. Vertebrae: Nondisplaced fractures are visualized along the anterior lamina of C2 bilaterally (series 5 image 55). Extensive spondylosis is observed . Cervical disc levels: Multilevel moderate to severe disc narrowing are noted. Facets and p osterior spinal elements: No facet subluxation, dislocation, fracture, or evidence of acute abnormality. Multilevel degenerative changes. Paraspinal soft tissues: No evidence of acute paraspinal soft tissue abnormality. IMPRESSION- 1. No acute intracranial hemorrhage or mass effect. 2. Nondisplaced fractures are visualized along the anterior lamina of C2 bilaterall y (series 5 image 55). A preliminary report was sent by [employer] on 02/27/2020 1:18 PM . This did not mention the nondistended fractures involving the anterior lamina of C2 bilmarvin leblanc. This information was conveyed to Dr. Lux. Dictated and Signed by: Patrick Rodriguez MD Electronically signed: 02/27/2020 1:40 PM 1. No acute intracranial hemorrhage or mass effect. 2. No acute cervical spine fracture. Si gned by: Geni Garibay, Francesco Sign Date/Time: 02/27/2020 1:[address] Cervical Spine Wo Contrast Result Date: 02/27/2020 CT CERVICAL SPINE WO CONTRAST 02/27/2020 12:42 PM CLINICAL INFORMATION: Head trauma, abnorma l mental status.; Neck pain, recent trauma. Neck pain, s/p fall COMPARISON: Reviewed with co mparison to 02/26/2020. PROCEDURE: CT Head: Axial non-contrast images were obtained through t he head. CT Cervical Spine: Thin section noncontrast axial images were obtained through the cervical spine. Multiplanar reformations were obtained from the acquisition data. At least o ne of the following CT dose optimization techniques were used: Automated exposure control; A djustment of mA and/or kV according to patient size; Use of iterative reconstruction technCatalyze ue. FINDINGS: CT Head: Brain: No intracranial hemorrhage, midline shift or pathologic mass e ffect. No cerebral edema, mass lesion, or evidence of infarct. Substance loss and white sri er changes as on the prior study. 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 Stable. Potential previous lacunar infarcts. Stable. Nino tricles and extra-axial fluid spaces: No abnormal extra-axial fluid collections. Paranasal s inuses and mastoid air cells: Normal. Calvarium and extracranial soft tissue: Thickening of the right frontal parasagittal calvarium. Stable. Orbits: Imaged portions of the orbits are normal. CT Cervical Spine: Alignment: Normal. Vertebrae: Nondisplaced fractures are visuali zed along the anterior lamina of C2 bilaterally (series 5 image 55). Extensive spondylosis i s observed. Cervical disc levels: Multilevel moderate to severe disc narrowing are noted. Fa cets and posterior spinal elements: No facet subluxation, dislocation, fracture, or evidence of acute abnormality. Multilevel degenerative changes. Paraspinal soft tissues: No evidenc e of acute paraspinal soft tissue abnormality. IMPRESSION- 1. No acute intracranial hemorrha ge or mass effect. 2. Nondisplaced fractures are visualized along the anterior lamina of C2 bilaterally (series 5 image 55). A preliminary report was sent by [employer] on 02/27/20 1:18 PM. This did not mention the nondistended fractures involving the anterior lamina of C2 bilaterally. This information was conveyed to Dr. Lux. Dictated and Signed by: Patrick Rodriguez MD Electronically signed: 02/27/2020 1:42 PM 1. No acute intracranial hemorrhage or mass effect. 2. No acute cervical spine fracture. Si gned by: Geni Garibay Richard Sign Date/Time: 02/27/2020 1:18 PM Labs: Recent Results (from the past 24 hour(s)) Hemoglobin Collection Time: 02/27/20 10:31 PM Result Value Ref Range Hemoglobin 7.0 (LL) 11.5 - 16.0 g/dL Hemoglobin and Hematocrit Collection Time: 02/28/20 12:45 AM Result Value Ref Range Hematocrit 23.9 (L) 34.0 - 47.0 % Hemoglobin 7.3 (LL) 11.5 - 16.0 g/dL Protime INR Collection Time: 02/28/20 12:45 AM Result Value Ref Range Prothrombin Time 14.3 (H) 11.3 - 13.9 seconds INR 1.1 0.9 - 1.1 Iron and Transferrin Collection Time: 02/28/20 12:45 AM Result Value Ref Range Iron 41 (L) 50 - 170 ug/dL TRANSFERRIN 148.0 (L) 250.0 - 380.0 mg/dL TIBC 207 (L) 235 - 425 ug/dL % SATURATION 19.8 15.0 - 50.0 % Extra Gold Top Tube Collection Time: 02/28/20 1:00 AM Result Value Ref Range Extra Gold Top Tube Done Basic Metabolic Panel Collection Time: 02/28/20 4:38 AM Result Value Ref Range Na 140 136 - 145 mmol/L K 4.1 3.4 - 5.1 mmol/L Cl 106 98 - 107 mmol/L CO2 31 20 - 31 mmol/L Anion Gap 3 3 - 16 mmol/L Glucose 81 60 - 106 mg/dL BUN 30 (H) 9 - 23 mg/dL Creatinine 0.91 0.55 - 1.02 mg/dL eGFR if not 58 (L) >=60 mL/min/1.73m2 Calcium 8.4 (L) 8.7 - 10.4 mg/dL BUN/Creatinine Ratio 33.0 CBC no Differential Collection Time: 02/28/20 4:38 AM Result Value Ref Range WBC 8.4 4.0 - 11.0 K/uL RBC 2.44 (L) 3.70 - 5.20 M/uL Hemoglobin 7.4 (LL) 11.5 - 16.0 g/dL Hematocrit 24.2 (L) 34.0 - 47.0 % MCV 99.2 83.0 - 101.0 fL MCH 30.3 28.0 - 35.0 pg MCHC 30.6 (L) 32.0 - 36.0 g/dL RDW-CV 16.9 (H) <15.0 % RDW-SD 62.0 (H) 35.1 - 46.3 fL Platelet Count 153 140 - 440 K/uL MPV 10.5 6.5 - 12.4 fL % nRBC 0 0 - 2 per 100 WBCs Absolute nRBC 0.00 0.00 - 0.01 K/uL Magnesium Collection Time: 02/28/20 4:38 AM Result Value Ref Range Magnesium 2.1 1.6 - 2.6 mg/dL Hemoglobin and Hematocrit Collection Time: 02/28/20 12:28 PM Result Value Ref Range Hematocrit 25.1 (L) 34.0 - 47.0 % Hemoglobin 7.6 (L) 11.5 - 16.0 g/dL Red Blood Cells (PRBC) - Crossmatch Collection Time: 02/28/20 2:14 PM Result Value Ref Range Product Code T6062J36 UNIT # [id number] UNIT ABO A UNIT RH POS CROSSMATCH INTERP Compatible Unit Status Issued Blood Product Expiration Date and Time [id number] Product Blood Type Barcode 6200 Assessement: Pt cleared by neurosurgery Neck splint removed Plan: PT Discharge when taking po and cleared by PT Signed: Latia Stout MD 02/28/2020 7:16 PM [place] PROGRESS NOTE wesi Foley RN - 02/28/2020 6:22 PM PDTBlood transfusion started at 1415 and PIV infiltrated 15 m inutes into transfusion. This RN attempted twice to restart PIV, a 2nd RN attempted and keyla rge RN attempted. 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 Dr. Carvajal informed of situation. This RN resumed transfusion at normal rate of 150 mL/hr and a ble to complete entire unit within 4 hour time window from pickup in blood bank.Electronical ly signed by Kyree Foley RN at 02/28/2020 6:25 PM Mir Raymundo, Pharmacy Resi dent - 02/27/2020 7:10 PM PDT RENAL DOSE ADJUSTMENT PER PHARMACY PROTOCOL: Subjective/Objective: Ángela Crowley is a 89 y.o. year old female admitted on 02/27/2020 12:07 PM and is rece iving FAMOTIDINE BP 120/77 | Pulse 74 | Temp 36.5 C (97.7 F) | Resp 16 | SpO2 93% | N o No intake or output data in the 24 hours ending 02/27/20 1907 Recent Labs Lab 02/27/20 1231 02/24/20 0528 02/23/20 0537 CREA 1.11* 0.86 0.88 Estimated Creatinine Clearance: 25 mL/min (A) (based on SCr of 1.11 mg/dL (H)). Date Day of therapy Creatinine CrCl (mL/min) Dose-current Dose-new 02/27/20 1 1.11 25 40 mg q24hr 20 mg q48hr Assessment/Plan: For creatinine clearance <30 mL/min, decrease dose and increase interval of FAMOTIDINE as a yuko. Pharmacy will continue to follow and adjust dose as appropriate to clinical condition and c reatinine clearance changes RENAL DOSE ADJUSTMENT PROTOCOL Electronically signed by: Mir Garnett, Director [employer] 02/27/2020 7:07 PM [facility] Plan of Treatment +--------+ + + + + | Date | Type | Specialty | Care Team | Description | +--------+ + + + + | 03/23/ | Office | Anticoagulation | García Harris, | | | 2019 | Visit | | [employer] [address] | | | | | | [place] | | | | | | [address] | | | | | | | | +--------+ + + + + | 04/11/ | Appointment | Radiology | Shawn Michael | | | 2019 | | | MD [address] | | | | | | [address] [place] | | | | | | [place] [address] | | | | | | [phone] | | | | | | | | +--------+ + + + + | 04/13/ | Office | Cardiology | Shawn Michael | | | 2019 | Visit | | MD [address] | | | | | | [address] [place] | | | | | | [place], [place] [address] | | | | | | [phone] | | | | | | | | +--------+ + + + + + +------+--------+ + + | Name | Type | Priori | Associated Diagnoses | Date/Time | | | | ty | | | + +------+--------+ + + | ED INFORMATION | MICHAEL | Routin | | 02/27/2020 12:07 PM | | EXCHANGE | | e [...] + + | MAGNESIUM | Routin | 02/28/2020 [...] + +--------+ + + + | EXTRA GOLD TOP TUBE | [...] + +--------+ + + + | HEMOGLOBIN | Routin | 02/27/2020 [...] +--------+ + + + | XR KNEE RIGHT [...] + +--------+ + + + | CT CERVICAL SPINE WO | [...] + + + | PROCALCITONIN, SERUM | Add-On | [...] + + + | TROPONIN I | Add-On | [...] + + + | C-REACTIVE PROTEIN | Add-On | 02/27/2020 | | Results for this | | | | 12:31 PM | | procedure are in the | | | | PDT | | results section. | + +--------+ + + + | MAGNESIUM | Add-On | 02/27/2020 | | Results for this | | | | 12:31 PM | | procedure are in the | | | | PDT | | results section. | + +--------+ + + + | LIPASE | STAT | 02/27/2020 [...] + + | COMPREHENSIVE | STAT | 02/27/2020 [...] | | | 2019 | | | 12:08 | | | [...] J?MRN: | | | | | | [id number] | | | [id number] | | | riteri | | | [...] | | | St. | | | [place] | | | y | | | [...] | | | s | | | [place] | | | ED | | | Dispar | | | ity | | | Meas[facility] | | | e - | | | [place] | | | has | | | [...] | | | s. | | | [place] | | | | | | Health [...] | | | By: | | | [place] | | | | | | Health [...] | | 19 0 | | | [facility] | | | | | | [facility] | | | l | | | [facility] | | | al 1 0 | | | [facility] | | | [facility] | | | [place] | | | y | | | [...] | | | St. | | | [facility] | | | [facility] | | | [...] | | | St. | | | [place] | | | y H. | | [...] | | | St. | | | [place] | | | y H. | | [...] | | e of | | | [place] | | | [place] [...] | | e of | | | [place] | | | [place] [...] | | e of | | | [place] | | | | | [place] [...] | | | 2019 | | | [facility] | | | | | | Genera [...] | | | M.D. | | | Waste Removalist | | | al | | | [...] | +---+--------+ documented in this encounter Results Extra Green Top Tube (03/02/2020 5:27 AM PDT) + +-------+ + + + [...] + | [facility] | [address] | [place] | [phone] | | [facility] | | [address] | | | - LABORATORY | | | | + + + + + CBC no Differential (03/02/2020 5:27 AM PDT) + + + + + [...] | nRBC | | K/uL | [facility] | | | | | | [...] [address] | [place] | [phone] | | [facility] | | [address] | | | - LABORATORY | | | | + + + + + Red Blood Cells (PRBC) - Crossmatch (03/01/2020 10:49 AM PDT) + + + + + + | Component | Value | Ref Range | Performed | Pathologist | | | | | At | Signature | + + + + + + | Product | [id number] | | [facility] | | | Code | | | [facility] | | | | | | MEDICAL | | | | | | CENTER - | | | | | | BLOOD BANK | | + + + + + + | UNIT # | [id number] | | [facility] | | | | [...] | | INTERP | | | [facility] | | [...] + + + + | Blood | [id number] | | [facility] | | | Product | | | [facility] | | | Expiration | | | MEDICAL | | | Date and | | | CENTER - | | | Time | | | BLOOD BANK | | + + + + + + | Product | [id number] | | [facility] | | | Blood Type | | | [facility] | | | Barcode | | [...] [place] | | | [facility] | | [address] | | | - BLOOD BANK | | | | + + + + + Extra Green Top Tube (03/01/2020 5:05 AM PDT) + +-------+ + + + [...] + | [facility] | [address] | [place] | [phone] | | [facility] | | [address] | | | - LABORATORY | | | | + + + + + CBC no Differential (03/01/2020 5:05 AM PDT) + + + + + + | Component | Value | Ref Range | Performed | Pathologist | | | | | At | Signature | + + + + + + | WBC | 9.6 | 4.0 - 11.0 K/uL | [facility] | | | | | | [facility] | | | | | | MEDICAL | | | | | | CENTER - | | | | | | LABORATORY | | + + + + + + | RBC | 2.72 (L) | 3.70 - 5.20 | [facility] | | | | | M/uL | [facility] | | | | | [...] + + + + | RDW-SD | 62.1 (H) | 35.1 - 46.3 fL | [...] | [address] | [place], [place] | [phone] | | [facility] | | [address] | | | - LABORATORY | | | | + + + + + VAS Upper Extremity Venous Left (02/29/2020 3:49 PM PDT) + + | Specimen | [...] + | Kofi Bullock Results In - 02/29/2020 8:53 PM PDT [...] +---------+ + + B Type Natriuretic Peptide (02/29/2020 4:17 AM PDT) + + + + + + | Component | Value | Ref Range | Performed | Pathologist | | | | | At | Signature | + + + + + + | BNP | 601 (H)Comment: New | <100 pg/mL | [facility] | | | | method in use [...] + | [facility] | [address] | [place] | [phone] | | [facility] | | [address] | | | - LABORATORY | | | | + + + + + Basic Metabolic Panel (02/29/2020 4:17 AM PDT) + + + + + [...] | | | | | mg/dL | [facility] | | | | | | MEDICAL | | | | | | CENTER - | | | | | | LABORATORY | | + + + + + + | eGFR if not | >60Comment: GLOMERULAR | >=60 | [facility] | | | | FILTRATION | mL/min/1.73m2 | [facility] | | | S[facility] [place]ANKAN | RATE,ESTIMATED | | MEDICAL | | | | mL/min/1.08q9Ince than | | CENTER - | | [...] 8.3 (L) | 8.7 - 10.4 | [facility] | | | | | mg/dL | [facility] | | | | | [...] [address] | [place] | [phone] | | [facility] | | [address] | | | - LABORATORY | | | | + + + + + CBC with Differential (02/29/2020 4:17 AM PDT) + + + + + + | Component | Value | Ref Range | Performed | Pathologist | | | | | At | Signature | + + + + + + | WBC | 9.7 | 4.0 - 11.0 K/uL | [facility] | | | | [facility] | | | | | | MEDICAL | | | | | | CENTER - | | | | | | LABORATORY | | + + + + + + | RBC | 2.86 (L) | 3.70 - 5.20 | [facility] | | | | | M/uL | [facility] | | | | | | MEDICAL | | | | | | CENTER - | | | | | | LABORATORY | | + + + + + + | Hemoglobin | 8.5 (L) | 11.5 - 16.0 | [facility] [...] + + + + | MCV | 98.6 | 83.0 - 101.0 fL | [facility] [...] + + + + | RDW-SD | 64.0 (H) | 35.1 - 46.3 fL | [facility] | | | | | | [facility] | | | | | | MEDICAL | | | | | | CENTER - | | | | | | LABORATORY | | + + + + + + | Platelet | 152 | 140 - 440 K/uL | [facility] [...] + + + + | % | 75.1 | 45.0 - 82.0 % | [facility] | | | Neutrophils | | | [facility] | | | | | | MEDICAL | | | | | | CENTER - | | | | | | LABORATORY | | + + + + + + | % | 11.7 (L) | 20.0 - 45.0 % | [facility] | | | Lymphocytes | | | [facility] | | | | | | MEDICAL | | | | | | CENTER - | | | | | | LABORATORY | | + + + + + + | % Monocytes | 10.9 | 4.0 - 12.0 % | [facility] | | | | | | [facility] | | | | | | MEDICAL | | | | | | CENTER - | | | | | | LABORATORY | | + + + + + + | % | 1.7 | 0.0 - 5.0 % | [facility] [...] + + + + | Absolute | 7.31 | 1.80 - 8.50 | [facility] | | | Neutrophils | | K/uL | [facility] | | | | | | MEDICAL | | | | | | CENTER - | | | | | | LABORATORY | | + + + + + + | Absolute | 1.14 | 0.60 - 3.20 | [facility] | | | Lymphocytes | | K/uL | [facility] | | | | | | MEDICAL | | | | | | CENTER - | | | | | | LABORATORY | | + + + + + + | Absolute | 1.06 (H) | 0.00 - 1.00 | [facility] [...] | [address] | [place], [place] | [phone] | | [facility] | | [address] | | | - LABORATORY | | [...] + | [facility] | [address] | [place] | [phone] | | [facility] | | [address] | | | - LABORATORY | | | | + + + + + Hemoglobin and Hematocrit (02/28/2020 8:49 PM PDT) + + + + + [...] [address] | [place] | [phone] | | [facility] | | [address] | | | - LABORATORY | | | | + + + + + Red Blood Cells (PRBC) - Crossmatch (02/28/2020 2:14 PM PDT) + + + + + + | Component | Value | Ref Range | Performed | Pathologist | | | | | At | Signature | + + + + + + | Product | [id number] | | [facility] | | | Code | | | [facility] | | | | | | MEDICAL | | | | | | CENTER - | | | | | | BLOOD BANK | | + + + + + + | UNIT # | [id number] | | [facility] | | | | [...] | | INTERP | | | [facility] | | [...] + + + + | Blood | [id number] | | [facility] | | | Product [...] [place] | | | [facility] | | [address] | | | - BLOOD BANK | | | | + + + + + Hemoglobin and Hematocrit (02/28/2020 12:28 PM PDT) + + + + + + | Component | Value | Ref Range | Performed | Pathologist | | | | | At | Signature | + + + + + + | Hematocrit | 25.1 (L) | 34.0 - 47.0 % | [...] | | | | g/dL | [facility] | | | | [...] [address] | [place] | [phone] | | [facility] | | [address] | | | - LABORATORY | | | | + + + + + Magnesium (02/28/2020 4:38 AM PDT) + +-------+ + + + [...] + | [facility] | [address] | [place] | [phone] | | [facility] | | [address] | | | - LABORATORY | | | | + + + + + CBC no Differential (02/28/2020 4:38 AM PDT) + + + + + + | Component | Value | Ref Range | Performed | Pathologist | | | | | At | Signature | + + + + + + | WBC | 8.4 | 4.0 - 11.0 K/uL | [facility] | | | | | | [facility] | | | | | | MEDICAL | | | | | | CENTER - | | | | | | LABORATORY | | + + + + + + | RBC | 2.44 (L) | 3.70 - 5.20 | [facility] | | | | | M/uL | [facility] | | | | | | MEDICAL | | | | | | CENTER - | | | | | | LABORATORY | | + + + + + + | Hemoglobin | 7.4 (LL)Comment: | 11.5 - 16.0 | [facility] | | | | Consistent with Previous | g/dL | [facility] | | | | Results | | MEDICAL | | | | | | CENTER - | | | | | | LABORATORY | | + + + + + + | Hematocrit | 24.2 (L) | 34.0 - 47.0 % | [facility] | | | | | | [facility] | | | | | | MEDICAL | | | | | | CENTER - | | | | | | LABORATORY | | + + + + + + | MCV | 99.2 | 83.0 - 101.0 fL | [facility] [...] + + + + | RDW-SD | 62.0 (H) | 35.1 - 46.3 fL | [facility] | | | | | | [facility] | | | | | | MEDICAL | | | | | | CENTER - | | | | | | LABORATORY | | + + + + + + | Platelet | 153 | 140 - 440 K/uL | [facility] [...] + | [facility] | [address] | [place] | [phone] | | [facility] | | [address] | | | - LABORATORY | | | | + + + + + Basic Metabolic Panel (02/28/2020 4:38 AM PDT) + + + + + [...] | | | | mg/dL | [facility] | | | | | | MEDICAL | | | | | | CENTER - | | | | | | LABORATORY | | + + + + + + | eGFR if not | 58 (L)Comment: | >=60 | [facility] | | | | GLOMERULAR FILTRATION | mL/min/1.73m2 | [facility] | | | [facility] | RATE,ESTIMATED | | MEDICAL | | | | mL/min/1.98u1Lnxi than | | CENTER - | | [...] + + + + | BUN/Creatin | 33.0 | | [facility] | | | ine [...] + | [facility] | [address] | [place], [place] | [phone] | | [facility] | | [address] | | | - LABORATORY | | [...] [address] | [place] | [phone] | | [facility] | | [address] | | | - LABORATORY | | | | + + + + + Hemoglobin and Hematocrit (02/28/2020 12:45 AM PDT) + + + + + + | Component | Value | Ref Range | Performed | Pathologist | | | | | At | Signature | + + + + + + | Hematocrit | 23.9 (L) | 34.0 - 47.0 % | [facility] | | | | | | [facility] | | | | | | MEDICAL | | | | | | CENTER - | | | | | | LABORATORY | | + + + + + + | Hemoglobin | 7.3 (LL)Comment: | 11.5 - 16.0 | [facility] | | | | Consistent with Previous | g/dL | [facility] | | | | Results | [...] [address] | [place] | [phone] | | [facility] | | [address] | | | - LABORATORY | | | | + + + + + Iron and Transferrin (02/28/2020 12:45 AM PDT) + + + + + [...] | [address] | [place], [place] | [phone] | | [facility] | | [address] | | | - LABORATORY | | | | + + + + + Diandra INR (02/28/2020 12:45 AM PDT) + + + + + + | Component | Value | Ref Range | Performed | Pathologist | | | | | At | Signature | + + + + + + | Prothrombin | 14.3 (H) | 11.3 - 13.9 | [facility] | | | Time | | seconds | [facility] | | | | [...] [address] | [place] | [phone] | | [facility] | | [address] | | | - LABORATORY | | [...] | Critical Result called | g/dL | [facility] | | | | to and read [...] [address] | [place] | [phone] | | [facility] | | [address] | | | - LABORATORY | | [...] - 1.030 | [facility] | | | [place], | | | [facility] | | [...] [address] | [place] | [phone] | | [facility] | | [address] | | | - [...] +---------+ + + CT Head wo Contrast (02/27/2020 12:54 PM PDT) + + | Specimen | + + | | + + + + + | Narrative | Performed At | + + + | CT HEAD WO CONTRAST 02/27/2020 12:42 PM CLINICAL INFORMATION: | [facility] | | Head trauma, abnormal mental status.; Neck pain, recent trauma. Neck | | | pain, s/p fall COMPARISON: Reviewed with comparison to 02/26/2020. | | | PROCEDURE: CT Head: Axial non-contrast images were obtained | | | through the head. CT Cervical Spine: Thin section noncontrast | | | axial images were obtained through the cervical [...] report was sent | | | by [facility] on 02/27/2020 1:18 PM. This did not mention the | | | nondistended fractures involving the anterior lamina of C2 | | | bilaterally. This information was conveyed to Dr. Lux. Dictated | | | and Signed by: Patrick Rodriguez MD Electronically signed: 02/27/2020 | | | 1:40 PM | | + + + + + | Procedure Note | + + | Kobe, Rad Results In - 02/27/2020 1:[address] HEAD WO CONTRAST 02/27/2020 12:42 PM | | | | CLINICAL INFORMATION: | | Head trauma, abnormal mental status.; Neck pain, recent trauma. Neck | | pain, s/p fall | | | | COMPARISON: | | Reviewed with comparison to 02/26/2020. | | | | PROCEDURE: | | CT Head: Axial non-contrast images were obtained through the head. | | | | CT Cervical Spine: Thin section noncontrast axial images were obtained | | through the cervical spine. | | | | Multiplanar reformations were obtained from the acquisition data. | | | | At least one of the following CT dose optimization techniques were | | used: Automated exposure control; Adjustment of mA and/or kV according | | to patient size; Use of iterative reconstruction technique. | | | | FINDINGS: | | CT Head: | | Brain: No intracranial hemorrhage, midline shift or pathologic mass | | effect. No cerebral edema, mass lesion, or evidence of infarct. | | Substance loss and white matter changes as on the prior study. Focal | | encephalomalacia of the left occipital lobe likely due to prior area of | | infarction. Stable. Potential previous lacunar infarcts. Stable. | | | | Ventricles and extra-axial fluid spaces: No abnormal extra-axial fluid | | collections. | | | | Paranasal sinuses and mastoid air cells: Normal. | | | | Calvarium and extracranial soft tissue: Thickening of the right frontal | | parasagittal calvarium. Stable. | | | | Orbits: Imaged portions of the orbits are normal. | | | | CT Cervical Spine: | | Alignment: Normal. | | | | Vertebrae: Nondisplaced fractures are visualized along the anterior lamina of C2 | | bilaterally (series 5 image 55). Extensive spondylosis is observed. | | | | Cervical disc levels: Multilevel moderate to severe disc narrowing are noted. | | | | Facets and posterior spinal elements: No facet subluxation, | | dislocation, fracture, or evidence of acute abnormality. Multilevel | | degenerative changes. | | | | Paraspinal soft tissues: No evidence of acute paraspinal soft tissue | | abnormality. | | | | IMPRESSION- | | 1. No acute intracranial hemorrhage or mass effect. | | 2. Nondisplaced fractures are visualized along the anterior lamina of C2 | | bilaterally (series 5 image 55). | | | | A preliminary report was sent by [employer] on 02/27/2020 1:18 PM. This did | | not mention the nondistended fractures involving the anterior lamina of C2 | | bilaterally. This information was conveyed to Dr. Lux. | | | | Dictated and Signed by: Patrick Rodrigeuz MD | | Electronically signed: 02/27/2020 1:40 PM | + + + +---------+ + [...] findings. A preliminary report was sent by [facility] with no | | | significant discrepancy [...] While this could represent changes | | utehovm-ug-yvgi anastomosis (with blind-ending pouch), the findings doraise [...] While | | this could represent changes kmjrcha-cj-ykju anastomosis (with blind-ending pouch), the | | findings doraise suspicion for abscess in the presacral region and raise suspicionfor | | anastomotic breakdown or leak, in the appropriate clinical setting.Rectal tumor is not | | entirely excluded on the current study.6. Please see above for other incidental and | | chronic findings.A preliminary report was sent by [facility] with no significant | | discrepancyon 02/27/2020 [...] | |A preliminary report was sent by [facility] with no significant discrepancy | |on 02/27/2020 [...] report was sent | | | by [facility] on 02/27/2020 1:18 PM. This did not [...] along the anterior lamina of | | [id number] (series 5 image 55). Extensive spondylosis is [...] along the anterior lamina of | | [id number] (series 5 image 55).A preliminary report was sent by [employer] on | | 02/27/2020 1:18 PM. This didnot mention the nondistended fractures involving the | | anterior lamina of [id number]. This information was conveyed to Dr. Lux.Dictated [...] | |A preliminary report was sent by [employer] on 02/27/2020 1:18 PM. This did | [...] | | | + +---------+ + + C-Reactive Protein (02/27/2020 12:31 PM PDT) + + + + + + | Component | Value | Ref Range | Performed | Pathologist | | | | | At | Signature | + + + + + + | CRP | 22.20 (H) | <10.00 mg/L | [facility] | [...] [address] | [place] | [phone] | | [facility] | | [address] | | | - LABORATORY | | | | + + + + + Procalcitonin (02/27/2020 12:31 PM PDT) + + + + + [...] + | [facility] | [address] | [place] | [phone] | | [facility] | | [address] | | | - LABORATORY | | | | + + + + + Magnesium (02/27/2020 12:31 PM PDT) + +-------+ + + + | Component | Value | Ref Range | Performed | Pathologist | | | | | At | Signature | + +-------+ + + + | Magnesium | 2.1 | 1.6 - 2.6 mg/dL | [facility] | | | | | | [facility] | | | | | | [...] [address] | [place] | [phone] | | [facility] | | [address] | | | - LABORATORY | | | | + + + + + Troponin I (02/27/2020 12:31 PM PDT) + + + + + [...] | | | | | | [employer] | | | | | [...] + | [facility] | [address] | [place], [place] | [phone] | | [facility] | | [address] | | | - LABORATORY | | | | + + + + + CK Total (02/27/2020 12:31 PM PDT) + +-------+ + + + | Component | Value | Ref Range | Performed | Pathologist | | | | | At | Signature | + +-------+ + + + | CK TOTAL | 46 | 34 - 145 U/L | [facility] [...] [address] | [place] | [phone] | | [facility] | | [address] | | | - LABORATORY | | | | + + + + + Lipase (02/27/2020 12:31 PM PDT) + + + + + + | Component | Value | Ref Range | Performed | Pathologist | | | | | At | Signature | + + + + + + | Lipase | 30Comment: New method in | 12 - 53 U/L | [facility] | | | | use as of December 02 | | [facility] | | | | 2018. [...] [address] | [place] | [phone] | | [facility] | | [address] | | | - LABORATORY | | | | + + + + + Comprehensive Metabolic Panel (02/27/2020 12:31 PM PDT) + + + + + [...] + + + + | Glucose | 112 (H) | 60 - 106 mg/dL | [facility] | | | | | [facility] | | | [facility] | [facility] | [facility] - | | | | | | LABORATORY | | + + + + + + | BUN | 33 (H) | 9 - 23 mg/dL | [facility] | [facility] | | | [facility] | [facility] | | | | | | C[facility] - | | | | | | LABORATORY | | + + + + + + | Creatinine | 1.11 (H) | 0.55 - 1.02 | [facility] | | | | | mg/dL | [facility] | | | | | | MEDICAL | | | | | | CENTER - | | | | | | LABORATORY | | + + + + + + | eGFR if not | 46 (L)Comment: | >=60 | [facility] | | | | GLOMERULAR FILTRATION | mL/min/1.73m2 | [facility] | | | [facility] | RATE,ESTIMATED | | MEDICAL | | | | mL/min/1.79n7Kcvk than | | CENTER - | | [...] + + + + | ALT | 40 | 10 - 49 U/L | [facility] | | | | | | [facility] | | | | | | MEDICAL | | | | | | CENTER - | | | | | | LABORATORY | | + + + + + + | Alkaline | 76 | 46 - 116 U/L | [facility] | | | Phosphatase | | | [facility] | | | | | | MEDICAL | | | | | | CENTER - | | | | | | LABORATORY | | + + + + + + | Globulin | 2.3 [...] + + + + | BUN/Creatin | 29.7 | | [facility] | | | ine [...] + | [facility] | [address] | [place] | [phone] | | [facility] | | [address] | | | - LABORATORY | | | | + + + + + CBC with Differential (02/27/2020 12:31 PM PDT) + + + + + [...] + + + + | RBC | 2.58 (L) | 3.70 - 5.20 | [facility] [...] + + + + | Hematocrit | 25.6 (L) | 34.0 - 47.0 % | [facility] | | | | | | [facility] | | | | | | MEDICAL | | | | | | CENTER - | | | | | | LABORATORY | | + + + + + + | MCV | 99.2 | 83.0 - 101.0 fL | [facility] [...] + + + + | RDW-SD | 62.0 (H) | 35.1 - 46.3 fL | [facility] | | | | | [facility] | | | | | | MEDICAL | | | | | | CENTER - | | | | | | LABORATORY | | + + + + + + | Platelet | 169 | 140 - 440 K/uL | [facility] [...] + + + + | % | 86.3 (H) | 45.0 - 82.0 % | [facility] | | | Neutrophils | | | [facility] | | | | | | MEDICAL | | | | | | CENTER - | | | | | | LABORATORY | | + + + + + + | % | 4.4 (L) | 20.0 - 45.0 % | [facility] | | | Lymphocytes | | | [facility] | | | | | | MEDICAL | | | | | | CENTER - | | | | | | LABORATORY | | + + + + + + | % Monocytes | 7.4 | 4.0 - 12.0 % | [facility] [...] + + + + | Absolute | 11.57 (H) | 1.80 - 8.50 | [facility] | | | Neutrophils | | K/uL | [facility] | | | | | | MEDICAL | | | | | | CENTER - | | | | | | LABORATORY | | + + + + + + | Absolute | 0.59 (L) | 0.60 - 3.20 | [facility] [...] [address] | [place] | [phone] | | [facility] | | [address] | | | - LABORATORY | | | | + + + + + Extra Blue Top Tube (02/27/2020 12:31 PM PDT) + [...] [address] | [place] | [phone] | | [facility] | | [address] | | | - LABORATORY | | [...] | | Lavender | | | [facility] | | | Top Tube | [...] [address] | [place] | [phone] | | [facility] | | [address] | | | - LABORATORY | | | | + + + + + Extra Green Top Tube (02/27/2020 12:31 PM PDT) + [...] [address] | [place] | [phone] | | [facility] | | [address] | | | - LABORATORY | | | | + + + + + B Type Natriuretic Peptide (02/27/2020 12:26 PM PDT) + + + + + + | Component | Value | Ref Range | Performed | Pathologist | | | | | At | Signature | + + + + + + | BNP | 917 (H)Comment: New | <100 pg/mL | [facility] | | | | method in use as of | | [facility] | | | | December [...] ST. | [address] | [place], [place] | [phone] | | [facility] | | [address] | | | - LABORATORY | | | | + + + + + Type and Screen (02/27/2020 12:26 PM PDT) + + + + + [...] | | | Screen | | | [facility] | | [...] [place] | | | [facility] | | [address] | | | - BLOOD BANK | | | | + + + + + Lactic Acid (02/27/2020 12:26 PM PDT) + +-------+ + + + [...] + | [facility] | [address] | [place] | [phone] | | 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 Iron deficiency anemia | | secondary to blood loss (chronic) | + + | Fall, initial encounter | + + | Other closed nondisplaced fracture of second cervical vertebra, initial encounter | | (HCC) | + + | Colitis Other and unspecified noninfectious gastroenteritis and colitis | + + | Weakness Other malaise and fatigue | + + | Acute systolic congestive heart failure (HCC) Acute systolic heart failure | + + | Chronic obstructive pulmonary disease, unspecified COPD type (HCC) | + + | Anemia, unspecified type | + + | 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 | + + | Generalized anxiety disorder | + + | Hypertension Unspecified essential hypertension | + + | Arm DVT (deep venous thromboembolism), acute, left (HCC) | + + documented in this encounter Administered Medications + +--------+ +--------+------+------+ | Medication Order | MAR | Action | Dose | Rate | Site | | | Action | Date | | | | + +--------+ +--------+------+------+ | acetaminophen (TYLENOL) tablet | Given | 02/29/20 | 500 mg | | | | 500 mg 500 mg, Oral, EVERY 6 | | 20 3:16 | | | | | HOURS PRN, Pain, Starting Sun | | PM PDT | | | | | 02/27/20 at 1828 | | | | | | + +--------+ +--------+------+------+ +-------+ +--------+---+---+ | Given | 02/29/20 | 500 mg | | | | [...] Shortness of Breath, | | | Starting 02/29/20 at 1308 | | + +---+ | | | + +---+ + +-------+ +-------+---+---+ | albuterol-ipratropium 2.5-0.5 | Given | 03/02/20 | 3 mLs | | | | mg/3 mL nebulizer solution 3 mL | | 20 7:42 | | | | | 3 mL, Nebulization, RT Q8H, First | | AM PDT | | | | | dose on 02/27/20 at 1845 | | | | | | + +-------+ +-------+---+---+ +-------+ +-------+---+---+ | Given | 03/01/20 | 3 mLs | | | | | 20 9:00 | | | | | | PM PDT | | | | +-------+ +-------+---+---+ | Given | 03/01/20 | 3 mLs | | | | | 20 3:21 | | | | | | PM PDT | | | | +-------+ +-------+---+---+ +---+---+ | | | +---+---+ + +-------+ + +---+---+ | amoxicillin-clavulanate | Given | 03/02/20 | 1 tablet | | | | (AUGMENTIN) 875-125 mg per tablet | | 20 8:40 | | | | | 1 tablet 1 tablet, Oral, 2 | | AM PDT | | | | | TIMES DAILY, First dose on Sun | | | | | | | 02/27/20 at 2100, Indications: | | | | | | | sacral decub | | | | | | + +-------+ + +---+---+ +-------+ + +---+---+ | Given | 03/01/20 | 1 tablet | | | | | 20 9:52 | | | | | | PM PDT | | | | +-------+ + +---+---+ | Given | 03/01/20 | 1 tablet | | | | | 20 9:34 | | | | | | AM PDT | | | | +-------+ + +---+---+ +---+---+ | | | +---+---+ + +-------+ +-------+---+---+ | atorvaSTATin (LIPITOR) tablet | Given | 03/01/20 | 20 mg | | | | 20 mg 20 mg, Oral, NIGHTLY, | | 20 9:52 | | | | | First dose on 02/27/20 at 2100 | | PM PDT | | | | + +-------+ +-------+---+---+ +-------+ +-------+---+---+ | Given | 02/29/20 | 20 mg | | | | | 20 10:00 | | | | | | PM PDT | | | | +-------+ +-------+---+---+ | Given | 02/28/20 | 20 mg | | | | | 20 9:21 | | | | | | PM PDT | | | | +-------+ +-------+---+---+ +---+---+ | | | +---+---+ + +-------+ +--------+---+---+ | budesonide (PULMICORT) | Given | 03/02/20 | 0.5 mg | | | | nebulizer solution 0.5 mg 0.5 | | 20 7:42 | | | | | mg, Nebulization, 2 TIMES DAILY, | | AM PDT | | | | | First dose on 02/27/20 at | | | | | | | 2100, RT will administer. Shake | | | | | | | well. Protect from light. Rinse | | | | | | | mouth after use., | | | | | | + +-------+ +--------+---+---+ +-------+ +--------+---+---+ | Given | 03/01/20 | 0.5 mg | | | | | 20 8:57 | | | | | | PM PDT | | | | +-------+ +--------+---+---+ | Given | 03/01/20 | 0.5 mg | | | | | 20 8:08 | | | | | | AM PDT | | | | +-------+ +--------+---+---+ +---+---+ | | | +---+---+ + +-------+ + +---+---+ | carvedilol (COREG) tablet 3.125 | Given | 03/02/20 | 3.125 mg | | | | mg 3.125 mg, Oral, 2 TIMES | | 20 8:40 | | | | | DAILY WITH BREAKFAST & DINNER, | | AM PDT | | | | | First dose (after last | | | | | | | modification) on Fri02/29/20 at | | | | | | | 1700, Hold for sbp < 120, hold | | | | | | | for HR < 60, | | | | | | + +-------+ + +---+---+ +-------+ + +---+---+ | Given | 03/01/20 | 3.125 mg | | | | | 20 6:05 | | | | | | PM PDT | | | | +-------+ + +---+---+ | Given | 03/01/20 | 3.125 mg | | | | | 20 9:51 | | | | | | AM PDT | | | | +-------+ + +---+---+ +---+---+ | | | +---+---+ + +-------+ +---------+---+---+ | carvedilol (COREG) tablet 6.25 | Given | 02/29/20 | 6.25 mg | | | | mg 6.25 mg, Oral, 2 TIMES DAILY | | 20 9:00 | | | | | WITH BREAKFAST & DINNER, First | | AM PDT | | | | | dose on 02/27/20 at 1845, Hold | | | | | | | for sbp < 120, hold for HR < 60, | | | | | | | | | | | | | + +-------+ +---------+---+---+ +-------+ +---------+---+---+ | Given | 02/28/20 | 6.25 mg | | | | | 20 6:34 | | | | | | PM PDT | | | | +-------+ +---------+---+---+ | Given | 02/28/20 | 6.25 mg | | | | | 20 9:54 | | | | | | AM PDT | | | | +-------+ +---------+---+---+ +---+---+ | | | +---+---+ + +-------+ +---+---+---+ | collagenase (SANTYL) ointment | Given | 03/01/20 | | | | | Topical, SEE ADMIN INSTRUCTIONS, | | 20 3:08 | | | | | Starting 02/27/20 at 1828, See | | PM PDT | | | | | wound care notes, Apply to: | | | | | | | Other (Comment), Other location: | | | | | | | sacrum | | | | | | + +-------+ +---+---+---+ +-------+ +---+---+---+ | Given | 02/29/20 | | | | | | 20 4:58 | | | | | | PM PDT | | | | +-------+ +---+---+---+ +---+---+ | | | +---+---+ + +-------+ +--------+---+---+ | dorzolamide (TRUSOPT) 2% | Given | 03/02/20 | 1 drop | | | | ophthalmic solution 1 drop 1 | | 20 8:45 | | | | | drop, Both Eyes, 2 TIMES DAILY, | | AM PDT | | | | | First dose on 02/27/20 at 2100 | | | | | | + +-------+ +--------+---+---+ +-------+ +--------+---+---+ | Given | 03/01/20 | 1 drop | | | | | 20 9:53 | | | | | | PM PDT | | | | +-------+ +--------+---+---+ | Given | 03/01/20 | 1 drop | | | | | 20 9:52 | | | | | | AM PDT | | | | +-------+ +--------+---+---+ +---+---+ | | | +---+---+ + +-------+ +-------+---+---+ | escitalopram (LEXAPRO) tablet | Given | 03/02/20 | 15 mg | | | | 15 mg 15 mg, Oral, DAILY, First | | 20 8:39 | | | | | dose on 02/28/20 at 0900 | | AM PDT | | | | + +-------+ +-------+---+---+ +-------+ +-------+---+---+ | Given | 03/01/20 | 15 mg | | | | | 20 9:34 | | | | | | AM PDT | | | | +-------+ +-------+---+---+ | Given | 02/29/20 | 15 mg | | | | | 20 9:00 | | | | | | AM PDT | | | | +-------+ +-------+---+---+ +---+---+ | | | +---+---+ + +-------+ +-------+---+---+ | famotidine (PEPCID) tablet 20 | Given | 02/27/20 | 20 mg | | | | mg 20 mg, Oral, EVERY OTHER DAY, | | 20 9:58 | | | | | First dose on 02/27/20 at | | PM PDT | | | | | 2100 | | | | | | + +-------+ +-------+---+---+ +---+---+ | | | +---+---+ + +-------+ +-------+---+---+ | famotidine (PEPCID) tablet 20 | Given | 03/02/20 | 20 mg | | | | mg 20 mg, Oral, DAILY, First | | 20 8:40 | | | | | dose (after last modification) on | | AM PDT | | | | | 02/29/20 at 0930 | | | | | | + +-------+ +-------+---+---+ +-------+ +-------+---+---+ | Given | 03/01/20 | 20 mg | | | | | 20 9:51 | | | | | | AM PDT | | | | +-------+ +-------+---+---+ | Given | 02/29/20 | 20 mg | | | | | 20 9:22 | | | | | | AM PDT | | | | +-------+ +-------+---+---+ +---+---+ | | | +---+---+ + +-------+ +---------+---+---+ | fentaNYL (PF) injection 25-100 | Given | 02/28/20 | 100 mcg | | | | mcg 25-100 mcg, Intravenous, | | 20 11:45 | | | | | EVERY 1 HOUR PRN, Pain, Starting | | AM PDT | | | | | 02/27/20 at 1214 | | | | | | + +-------+ +---------+---+---+ +-------+ +---------+---+---+ | Given | 02/28/20 | 100 mcg | | | | | 20 6:41 | | | | | | AM PDT | | | | +-------+ +---------+---+---+ | Given | 02/27/20 | 50 mcg | | | | | 20 10:32 | | | | | | PM PDT | | | | +-------+ +---------+---+---+ +---+---+ | | | +---+---+ + +-------+ +--------+---+---+ | ferrous sulfate tablet 325 mg | Given | 03/02/20 | 325 mg | | | | 325 mg, Oral, DAILY WITH | | 20 8:40 | | | | | BREAKFAST, First dose on Sun | | AM PDT | | | | | 02/27/20 at 1845 | | | | | | + +-------+ +--------+---+---+ +-------+ +--------+---+---+ | Given | 03/01/20 | 325 mg | | | | | 20 9:51 | | | | | | AM PDT | | | | +-------+ +--------+---+---+ | Given | 02/29/20 | 325 mg | | | | | 20 9:02 | | | | | | AM PDT | | | | +-------+ +--------+---+---+ +---+---+ | | | +---+---+ + +-------+ +-------+---+---+ | furosemide (LASIX) injection 10 | Given | 02/29/20 | 10 mg | | | | mg 10 mg, Intravenous, 2 TIMES | | 20 9:00 | | | | | DAILY 0800 & 1600, First dose on | | AM PDT | | | | | 02/27/20 at 1845 | | | | | | + +-------+ +-------+---+---+ +-------+ +-------+---+---+ | Given | 02/28/20 | 10 mg | | | | | 20 6:34 | | | | | | PM PDT | | | | +-------+ +-------+---+---+ | Given | 02/28/20 | 10 mg | | | | | 20 9:55 | | | | | | AM PDT | | | | +-------+ +-------+---+---+ +---+---+ | | | +---+---+ + +-------+ +-------+---+---+ | furosemide (LASIX) tablet 20 mg | Given | 03/02/20 | 20 mg | | | | 20 mg, Oral, DAILY, First dose | | 20 8:40 | | | | | on 03/01/20 at 0900 | | AM PDT | | | | + +-------+ +-------+---+---+ +-------+ +-------+---+---+ | Given | 03/01/20 | 20 mg | | | | | 20 9:35 | | | | | | AM PDT | | | | +-------+ +-------+---+---+ +---+---+ | | | +---+---+ + +-------+ + +---+---+ | HYDROcodone-acetaminophen | Given | 02/27/20 | 1 tablet | | | | (NORCO) 5-325 mg per tablet 1 | | 20 3:04 | | | | | tablet 1 tablet, Oral, ONCE, Sun | | PM PDT | | | | | 02/27/20 at 1440, For 1 dose | | | | | | + +-------+ + +---+---+ +---+---+ | | | +---+---+ + +-------+ + +---+---+ | HYDROcodone-acetaminophen | Given | 03/02/20 | 1 tablet | | | | (NORCO) 5-325 mg per tablet 1 | | 20 8:40 | | | | | tablet 1 tablet, Oral, EVERY 4 | | AM PDT | | | | | HOURS PRN, Pain, Starting Mon | | | | | | | 02/28/20 at 1312 | | | | | | + +-------+ + +---+---+ +-------+ + +---+---+ | Given | 03/01/20 | 1 tablet | | | | | 20 9:52 | | | | | | PM PDT | | | | +-------+ + +---+---+ | Given | 03/01/20 | 1 tablet | | | | | 20 1:37 | | | | | | PM PDT | | | | +-------+ + +---+---+ +---+---+ | | | +---+---+ + +-------+ +---------+---+---+ | lactobacillus GG (CULTURELLE) | Given | 03/02/20 | 1 | | | | capsule 1 capsule 1 capsule, | | 20 8:40 | capsule | | | | Oral, 2 TIMES DAILY, First dose | | AM PDT | | | | | on 02/27/20 at 2100, Do not | | | | | | | open or crush., | | | | | | + +-------+ +---------+---+---+ +-------+ +---------+---+---+ | Given | 03/01/20 | 1 | | | | | 20 9:52 | capsule | | | | | PM PDT | | | | +-------+ +---------+---+---+ | Given | 03/01/20 | 1 | | | | | 20 9:35 | capsule | | | | | AM PDT | | | | +-------+ +---------+---+---+ +---+---+ | | | +---+---+ + +-------+ +--------+---+---+ | latanoprost (XALATAN) 0.005% | Given | 03/01/20 | 1 drop | | | | ophthalmic solution 1 drop 1 | | 20 9:53 | | | | | drop, Both Eyes, NIGHTLY, First | | PM PDT | | | | | dose on 02/27/20 at 2100 | | | | | | + +-------+ +--------+---+---+ +-------+ +--------+---+---+ | Given | 02/29/20 | 1 drop | | | | | 20 10:03 | | | | | | PM PDT | | | | +-------+ +--------+---+---+ | Given | 02/28/20 | 1 drop | | | | | 20 9:25 | | | | | | PM PDT | | | | +-------+ +--------+---+---+ +---+---+ | | | +---+---+ + +-------+ +-------+---+---+ | pantoprazole (PROTONIX) DR | Given | 03/02/20 | 40 mg | | | | tablet 40 mg 40 mg, Oral, DAILY | | 20 6:38 | | | | | BEFORE BREAKFAST, First dose on | | AM PDT | | | | | 02/28/20 at 0730, Do not cut | | | | | | | or crush., Indication: GERD | | | | | | + +-------+ +-------+---+---+ +-------+ +-------+---+---+ | Given | 03/01/20 | 40 mg | | | | | 20 6:42 | | | | | | AM PDT | | | | +-------+ +-------+---+---+ | Given | 02/29/20 | 40 mg | | | | | 20 6:45 | | | | | | AM PDT | | | | +-------+ +-------+---+---+ +---+---+ | | | +---+---+ + +-------+ +---------+---+---+ | polyvinyl alcohol (LIQUITEARS) | Given | 03/02/20 | 2 drops | | | | 1.4% ophthalmic solution 2 drop | | 20 8:45 | | | | | 2 drop, Both Eyes, EVERY MORNING, | | AM PDT | | | | | First dose on 02/27/20 at | | | | | | | 1845 | | | | | | + +-------+ +---------+---+---+ +-------+ +---------+---+---+ | Given | 03/01/20 | 2 drops | | | | | 20 9:52 | | | | | | AM PDT | | | | +-------+ +---------+---+---+ | Given | 02/29/20 | 2 drops | | | | | 20 9:02 | | | | | | AM PDT | | | | +-------+ +---------+---+---+ +---+---+ | | | +---+---+ + +-------+ + +---+---+ | sulfamethoxazole-trimethoprim | Given | 03/02/20 | 1 tablet | | | | (BACTRIM DS) 800-160 mg per | | 20 8:40 | | | | | tablet 1 tablet 1 tablet, Oral, | | AM PDT | | | | | 2 TIMES DAILY, First dose on Mon | | | | | | | 02/28/20 at 1330, Indications: | | | | | | | PURULENT SKIN AND SOFT TISSUE | | | | | | | INFECTION | | | | | | + +-------+ + +---+---+ +-------+ + +---+---+ | Given | 03/01/20 | 1 tablet | | | | | 20 9:52 | | | | | | PM PDT | | | | +-------+ + +---+---+ | Given | 03/01/20 | 1 tablet | | | | | 20 9:35 | | | | | | AM PDT | | | | +-------+ + +---+---+ +---+---+ | | | +---+---+ documented in this encounter Additional Health Concerns + + + + | Infection | Noted Time | Resolved Time | + + + + | Methicillin-resistant Staphylococcus aureus | 06/08/2019 9:39 AM | | | | PDT | | + + + + documented as of this encounter
--- OUTSIDE RECORDS SUMMARY | ~2020-03-14 | XMS | Encounter Summary ---
Demographics + + + | Address | [address] | | | [place] [address] | + + + | Home Phone [...] Team Providers + +------+ + | Care Relief Man Name | Role | Phone | + +------+ + | Candido Link | PCP | | | MD | | | + +------+ + Reason for Visit + + + | Reason | Comments | + + + | ER Follow-up | | + + + | Fall | | + + + | Shoulder Pain | right | + + + | Hip Pain | right | + + + Encounter Details +--------+---------+ + + + | Date | Type | Department | Care Team | Description | +--------+---------+ + + + | 08/03/ | Office | [facility] | Nikolay, | Acute pain of right | | 2019 | Visit | MEDICINE [address] | MD Candido | shoulder (Primary | | | | Street [place] | [address] [facility] | Dx); Right hip pain; | | | | [place] [address] | [place] [address] | Physical | | | | [phone] | [phone] | deconditioning; Poor | | | | | | balance | +--------+---------+ + + + Social History [...] + + + | Blood Pressure | 96/44 | 08/03/2019 12:39 PM | | | | | PDT | | + + + + + | Pulse | 95 | 08/03/2019 12:39 PM | | | | | PDT | | + + + + + | Temperature | 36.5 C (97.7 F) | 08/03/2019 12:39 PM | | | | | PDT | | + + + + + | Respiratory Rate | 18 | 08/03/2019 12:39 PM | | | | | PDT | | + + + + + | Oxygen Saturation | 96% | 08/03/2019 12:39 PM | | | | | PDT | | + + + + + | Inhaled Oxygen | - | - | | | Concentration | | | | + + + + + | Weight | 55.3 kg (121 lb 14.6 | 08/03/2019 12:39 PM | | | | oz) | PDT | | + + + + + | Height | - | - | | + + + + + | Body Mass Index | 20.29 | 06/28/2019 8:00 PM | | | | | PDT | | + + + + + documented in this encounter Progress Notes Mary Alice David, Osteologist - 08/03/2019 12:30 PM PDTFormatting of this note francine ht be different from the original. CHIEF COMPLAINT Chief Complaint Patient presents with ER Follow-up Fall Shoulder Pain right Hip Pain right HPI Ángela Crowley is a 88 y.o. y/o female who presents today for several issues: Patient recently was in the ER for a fall as she was hurrying to the restroom and caught he r foot on the oxygen cord. She was using her walker when she fell. She is on Hydrocodone, per pt hydrocodone had nothing to do with her fall. Only carelessnes s from hurrying to the bathroom. Per POA she walks just fine, no limping anymore. Pt is not hurting as much from the fall. R ecent x-rays show no fractures, nor broken bones. She is interested in having physical therapy for her shoulder and hip in addition to the ba alessio and the strengthening exercises that she is soon to begin with physical therapy. She has an appointment with a pain specialist in [facility] on August 13. ASSESSMENT & PLAN 1. Acute pain of right shoulder 2. Right hip pain - * [facility] Therapy- AMB Referral; Future -No fracture on x-rays done in the emergency room. 3. Physical deconditioning - * [facility]- AMB Referral; Future 4. Poor balance - * [facility] Therapy- AMB Referral; Future REVIEW OF SYSTEMS Review of Systems Constitutional: Negative. HENT: Negative. Eyes: Negative. Respiratory: Negative. Cardiovascular: Negative. Gastrointestinal: Negative. Endocrine: Negative. Genitourinary: Negative. Musculoskeletal: Negative. Skin: Negative. Neurological: Negative. Hematological: Negative. Psychiatric/Behavioral: Negative. PHYSICAL EXAM VITAL SIGNS: BP 96/44 | Pulse 95 | Temp 36.5 C (97.7 F) | Resp 18 | Wt 55.3 kg (121 lb 14.6 oz) | SpO2 96% | BMI 20.29 kg/m Constitutional: Frail, No acute distress, Pleasant female. HENT: Normocephalic, Atraumatic, Bilateral external ears normal, Oropharynx with no erythma , No oral exudates, Nose normal. Cardiovascular: Regular rate & rhythm, No murmurs, No rubs, No gallops. No lower extremitie s edema. Thorax & Lungs: Normal chest, No respiratory distress, No crackles, wheezing, or rubs. Skin: Warm, No erythema, No rash. Musculoskeletal: Reduced range of motion in all major joints. Able to stand up and walk wi th the help of a walker on her own. Neurologic: Alert & oriented x 3, No focal deficits noted. Psychiatric: Affect normal, Judgment normal, Mood normal. PAST MEDICAL HISTORY Past Medical History: Diagnosis Date Aortic stenosis COPD (chronic obstructive pulmonary disease) ([facility]) Coronary artery disease FAMILY HISTORY Family History [...] Flex Sig; Surgeon: Edwin Stoddard MD; Location: [facility] PROCEDURE UNIT NIRMAL AND BSO TONSILLECTOMY AND ADENOIDECTOMY UPPER GASTROINTESTINAL ENDOSCOPY N/A 06/07/2019 Procedure: EGD; Surgeon: Edwin Stoddard MD; Location: [facility] MEDICAL PROCEDURE UNIT CURRENT MEDICATIONS [...] tablet by mouth Daily. 90 tablet 3 calcium carbonate (TUMS EX) 750 MG [...] Take 600 Units by mouth every morning. ciprofloxacin (CIPRO) 500 mg tablet Take 1 tablet by mouth 2 times daily. 14 tablet 0 dicyclomine (BENTYL) 10 mg capsule Take 10 mg by mouth Daily as needed for GI Upset. docusate sodium (COLACE) 250 MG capsule Take [...] every 8 hours as needed for Pain. 25 tablet 0 latanoprost (XALATAN) 0.005% ophthalmic solution Place 1 drop into both eyes nightly. 12 loperamide (IMODIUM A-D) 2 MG tablet Take 2 mg by mouth Twice daily as needed for Diar sinan. metoprolol succinate (TOPROL-XL) 25 mg 24 hr tablet Take 1 tablet by mouth nightly. 90 tablet 1 mirtazapine (REMERON) 7.5 MG tablet Take 1 tablet by mouth nightly. 30 tablet 3 Multiple Vitamins-Minerals (PRESERVISION AREDS 2) CAPS Take [...] by mouth Daily as needed for Constipation. sodium chloride (OCEAN) 0.65% nasal spray 2 sprays by Each Nare route every 2 hours as needed for Nasal Dryness. 0 tamsulosin (FLOMAX) 0.4 mg CAPS Take 1 [...] 1. Parts of this documentwere created using ip[employer] speech recognition software. As a resu lt, there may be unintended word spelling errors. Every attempt was made to correct the di ctation. 2. IDalton MD, personally provided the services described in this documen tation, as scribed by CRISTINA Mazariegos, in my presence, and it is both accurate an d complete. 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 [address] | | | | | | [place] | | | | | | [id number] | | | | | | | | +--------+ + + + + | 04/11/ | Appointment | Radiology | Shawn Michael | | | 2019 | | | MD Marcelino [address] | | | | | | [address] | | | | | | [place] [address] | | | | | | [phone] | | | | | | | | +--------+ + + + + | 04/13/ | Office | Cardiology | Shawn Michael | | | 2019 | Visit | | MD Marcelino [address] | | | | | | [address] | | | | | | [place] [address] | | | | | | [phone] | | | | | | | | +--------+ + + + + documented as of this encounter Visit Diagnoses + + | Diagnosis | + + | Acute pain of right shoulder - Primary | + + | Right hip pain Pain in joint, pelvic region and thigh | + + | Physical deconditioning Debility, unspecified | + + | Poor balance | + + documented in this encounter Additional Health Concerns + + + + | Infection | Noted Time | Resolved Time | + + + + | Methicillin-resistant Staphylococcus aureus | 06/08/2019 9:39 AM | | | | PDT | | + + + + documented as of this encounter"
--- OUTSIDE RECORDS SUMMARY | ~2020-03-14 | XMS | Encounter Summary ---
Demographics + + + | Address | [address] | | | [place] [address] | + + + | Home Phone [...] Providers + +------+ + | Care Business Services Administrator Name | Role | Phone | + +------+ + | Candido Link | PCP | | | MD | | | + +------+ + Reason for Visit + + + | Reason | Comments | + + + | Fall | | + + + | Neck Pain | | + + + | Head Injury Without | | | Loc | | + + + Encounter Details +--------+ + + + + | Date | Type | Department | Care Team | Description | +--------+ + + + + | 06/28/ | Emergency | [facility] | Raymon Daniel, | Fall from slip, | | 2019 - | | [facility] | [address] | trip, or stumble, | | | | CENTER [address] | [place] | initial encounter | | 06/29/ | | [place] | [id number] | (Primary Dx); Injury | | 2019 | | [address] | | of head, initial | | | | [phone] | Virgilio Menezes MD | encounter; Contusion | | | | | [address] | of left elbow, | | | | | [place] | initial encounter; | | | | | [id number] | Effusion, left elbow | | | | | | | [...] + + + | Blood Pressure | 133/74 | 06/29/2019 12:34 AM | | | | | PDT | | + + + + + | Pulse | 93 | 06/29/2019 12:34 AM | | | | | PDT | | + + + + + | Temperature | 36.8 C (98.2 F) | 06/28/2019 8:00 PM | | | | | PDT | | + + + + + | Respiratory Rate | 18 | 06/29/2019 12:34 AM | | | | | PDT | | + + + + + | Oxygen Saturation | 97% | 06/29/2019 12:34 AM | | | | | PDT | | + + + + + | Inhaled Oxygen | - | - | | | Concentration | | | | + + + + + | Weight | 55.3 kg (122 lb) | 06/28/2019 8:00 PM | | | | | PDT | | + + + + + | Height | 165.1 cm (5' 5") | 06/28/2019 8:00 PM | | | | | PDT | | + + + + + | Body Mass Index | 20.3 | 06/28/2019 8:00 PM | | | | | PDT | | + + + + + documented in this encounter Discharge Instructions Instructions Virgilio Menezes MD - 06/29/2019Ice affected area for 20-30 minutes, 3-4 times a day Wear splint and sling for 1-2 weeks, follow up with primary care for reevaluation in one to 2 weeks AttachmentsThe following attachments cannot be sent through Care Everywhere.Falls, Preventi ng, Moving Safely Outside (Congolese)Head Injury (Adult) (Congolese)Contusion, Elbow (Congolese)do cumented in this encounter Medications at Time of [...] +---------+ + + | UNABLE TO | Portable Oxygen | 1 each | 0 | 06/23/20 | | | FINDIndications: | ConcentratorUse to | | | 19 | 9 | | Centrilobular | administer oxygen | | | | | | emphysema (HCC), | via NC 3l/min at | | | | | | Hypoxemia | rest | | | | | | | ambulating/travellin | | | | | | | g. | | | | | + + [...] [place] | | | | | | [id number] | | | | | | | | +--------+ + + + + | 04/11/ | Appointment | Radiology | Shawn Michael | | | 2019 | | | MD [address] | | | | | | [address] [place] | | | | | | [place], [place] [address] | | | | | | [phone] | | | | | | | | +--------+ + + + + | 04/13/ | Office | Cardiology | Shawn Michael | | | 2019 | Visit | | MD [address] | | | | | | [address] [place] | | | | | | [place] [address] | | | | | | [phone] | | | | | | | | +--------+ + + + + + +------+--------+ + + | Name | Type | Priori | Associated Diagnoses | Date/Time | | | | ty | | | + +------+--------+ + + | ED INFORMATION | MCIHAEL | Routin | | 06/28/2019 7:45 PM | | EXCHANGE | | e | | PDT | + +------+--------+ + + documented as of this encounter Procedures + +--------+ + + + | Procedure Name | Priori | Date/Time | Associated Diagnosis | Comments | | | ty | | | | + +--------+ + + + | XR ELBOW LEFT 3 + VW | STAT | 06/29/2019 | | Results for this | | | | 12:00 AM | | procedure are in the | | | | PDT | | results section. | + +--------+ + + + | URINALYSIS WITH | STAT | 06/28/2019 | | Results for this | | MICROSCOPIC WITH | | 10:49 PM | | procedure are in the | | CULTURE IF INDICATED | | PDT | | results section. | + +--------+ + + + | TROPONIN I | STAT | 06/28/2019 | | Results for this | | | | 10:25 PM | | procedure are in the | | | | PDT | | results section. | + +--------+ + + + | PROTIME INR | STAT | 06/28/2019 | | Results for this | | | | 10:25 PM | | procedure are in the | | | | PDT | | results section. | + +--------+ + + + | CBC WITH | STAT | 06/28/2019 | | Results for this | | DIFFERENTIAL | | 10:25 PM | | procedure are in the | | | | PDT | | results section. | + +--------+ + + + | COMPREHENSIVE | STAT | 06/28/2019 | | Results for this | | METABOLIC PANEL | | 10:25 PM | | procedure are in the | | | | PDT | | results section. | + +--------+ + + + | CT CERVICAL SPINE WO | STAT | 06/28/2019 | | Results for this | | CONTRAST | | 8:29 PM | | procedure are in the | | | | PDT | | results section. | + +--------+ + + + | CT HEAD WO CONTRAST | STAT | 06/28/2019 | | Results for this | | | | 8:29 PM | | procedure are in the | | | | PDT | | results section. | + +--------+ + + + | ECG 12 LEAD | STAT | 06/28/2019 | | Results for this | | | | 8:13 PM | | procedure are in the | | | | PDT | | results section. | + +--------+ + + + | OXYGEN THERAPY | STAT | 06/28/2019 | | | | | | 7:55 PM | | | | | | PDT | | | + +--------+ + + + documented in this encounter Results XR Elbow Left 3 + Vw (06/29/2019 12:00 AM PDT) + + | Specimen | + + | | + + + + + | Narrative | Performed At | + + + | THREE VIEWS LEFT ELBOW 06/28/2019 11:59 PM CLINICAL HISTORY: FALL | [facility] | | NECK PAIN HEAD INJURY WITHOUT LOC COMPARISON: None available | | | FINDINGS: The bones are well-mineralized and well aligned. No | | | recent fracture or subluxation is evident. Corticated-appearing | | | ossicles are present along the lateral humeral epicondyle and may | | | relate to more remote trauma. Joint spaces are maintained. An | | | elbow effusion is present. Soft tissues are otherwise unremarkable. | | | IMPRESSION - 1. ELBOW EFFUSION, RAISING SUSPICION FOR OCCULT | | | FRACTURE. RECOMMEND CONSERVATIVE MANAGEMENT AND CONSIDERATION FOR | | | SHORT-TERM IMAGING FOLLOW-UP. Dictated and Signed by: Sivakumar Mejias | | MD Tristen Electronically signed: 06/29/2019 9:03 AM | | + + + + + | Procedure Note | + + | Kofi Bullock Results In - 06/29/2019 9:06 AM PDT THREE VIEWS LEFT ELBOW 06/28/2019 11:59 | | PMCLINICAL HISTORY: FALLNECK PAINHEAD INJURY WITHOUT LOCCOMPARISON: None | | availableFINDINGS: The bones are well-mineralized and well aligned. No recent | | fractureor subluxation is evident. Corticated-appearing ossicles are present along | | thelateral humeral epicondyle and may relate to more remote trauma. Joint spacesare | | maintained. An elbow effusion is present. Soft tissues are otherwiseunremarkable. | | IMPRESSION -1. ELBOW EFFUSION, RAISING SUSPICION FOR OCCULT FRACTURE. | | RECOMMENDCONSERVATIVE MANAGEMENT AND CONSIDERATION FOR SHORT-TERM IMAGING | | FOLLOW-UP.Dictated and Signed by: Sivakumar Ramon MD Electronically signed: 06/29/2019 9:03 | | AM | |lateral humeral epicondyle and may relate to more remote trauma. Joint spaces | |are maintained. An elbow effusion is present. Soft tissues are otherwise | |unremarkable. | | | |IMPRESSION - | |1. ELBOW EFFUSION, RAISING SUSPICION FOR OCCULT FRACTURE. RECOMMEND | |CONSERVATIVE MANAGEMENT AND CONSIDERATION FOR SHORT-TERM IMAGING FOLLOW-UP. | | | |Dictated and Signed by: Sivakumar Ramon MD | | Electronically signed: 06/29/2019 9:03 AM | + + + +---------+ + + | Performing | Address | City/State/Zipcode | Phone Number | | Organization | | | | + +---------+ + + | [facility] | | | | + +---------+ + + Urinalysis with Microscopic with Culture if Indicated (06/28/2019 10:49 PM PDT) + + + + + [...] + + + + | Specific | 1.016 | 1.001 - 1.030 | [facility] | | | [place], | | | [facility] | | [...] + + + | White Blood | 5-10 (A) | 0 - 2 /HPF | [...] + + + + | Hyaline | 10-15 (A) | 0 - 2 [...] | | Comment | Indicated | | . [facility] | | | [...] + | [facility] | [address] | [place] | [phone] | | [facility] | | [address] | | | - LABORATORY | | | | + + + + + Protime INR (06/28/2019 10:25 PM PDT) + + + + + + | Component | Value | Ref Range | Performed | Pathologist | | | | | At | Signature | + + + + + + | Prothrombin | 12.9 | 11.3 - 13.9 | [facility] | [...] + | [facility] | [address] | [place] | [phone] | | [facility] | | [address] | | | - LABORATORY | | | | + + + + + Troponin I (06/28/2019 10:25 PM PDT) + + + + + [...] | | | | | | [employer] | | | | | [...] + | [facility] | [address] | [place] | [phone] | | [facility] | | [address] | | | - LABORATORY | | | | + + + + + Comprehensive Metabolic Panel (06/28/2019 10:25 PM PDT) + + + + + [...] + + + + | Glucose | 103 | 60 - 106 mg/dL | [facility] [...] not | >60Comment: GLOMERULAR | >=60 | [facility] | | | | FILTRATION | mL/min/1.73m2 | [facility] | | | [facility]OVEN[facility] | RATE,ESTIMATED | | MEDICAL | | | | mL/min/1.28t2Vqfv than | | CENTER - | | [...] 8.6 (L) | 8.7 - 10.4 | [facility] | | | | | mg/dL | [facility] | | | | | | MEDICAL | | | | | | CENTER - | | | | | | LABORATORY | | + + + + + + | Albumin | 3.3 | 3.2 - 4.8 g/dL | [facility] [...] + + + + | ALT | 10 | 10 - 49 U/L | [facility] [...] + + + + | BUN/Creatin | 18.4 | | [facility] | | | ine [...] [address] | [place] | [phone] | | [facility] | | [address] | | | - LABORATORY | | | | + + + + + CBC with Differential (06/28/2019 10:25 PM PDT) + + + + + + | Component | Value | Ref Range | Performed | Pathologist | | | | | At | Signature | + + + + + + | WBC | 7.5 | 4.0 - 11.0 K/uL | [facility] | | | | | | [facility] | | | | | | MEDICAL | | | | | | CENTER - | | | | | | LABORATORY | | + + + + + + | RBC | 3.35 (L) | 3.70 - 5.20 | [facility] [...] + + + + | MCV | 96.4 | 83.0 - 101.0 fL | [facility] [...] + + + + | % | 62.6 | 45.0 - 82.0 % | [facility] | | | Neutrophils | | | [facility] | | | | | | MEDICAL | | | | | | CENTER - | | | | | | LABORATORY | | + + + + + + | % | 19.5 (L) | 20.0 - 45.0 % | [...] + + + + | % | 5.1 (H) | 0.0 - 5.0 % | [facility] | | | Eosinophils | | | [facility] | | | | | | MEDICAL | | | | | | CENTER - | | | | | | LABORATORY | | + + + + + + | % Basophils | 0.8 | 0.0 - 1.0 % | [facility] [...] + + + + | Absolute | 4.67 | 1.80 - 8.50 | [facility] | [...] + + + + | Absolute | 0.38 | 0.00 - 0.40 | [facility] | [...] [address] | [place] | [phone] | | [facility] | | [address] | | | - LABORATORY | | | | + + + + + CT Cervical Spine wo Contrast (06/28/2019 8:29 PM PDT) + + | Specimen | + + | | + + + + + | Narrative | Performed At | + + + | CT CERVICAL SPINE WO CONTRAST 06/28/2019 8:29 PM HISTORY: trauma. | [facility] | | COMPARISON: None. PROTOCOL: Thin section axial images of the | | | cervical spine were obtained along with coronal and sagittal | | | reformations. FINDINGS: Vertebral body heights are generally | | | preserved. Multilevel moderate and severe disc marginal | | | osteophytosis. Large anterior bridging disc marginal osteophytes are | | | seen at C5-C6 and C6-C7. Partial fusion at C2-C3 and C3-C4. Fusion of | | | the C2-C4 posterior elements. Normal cervical alignment. | | | Prevertebral and paraspinal soft tissues show no acute abnormality. | | | Cervicomedullary junction and atlantoaxial articulations demonstrate | | | no acute abnormalities. Prominent bilateral carotid bulb | | | calcifications. C2-3: Moderate facet and uncinate spondylosis | | | without significant neural foraminal or central spinal stenosis. | | | C3-4: Severe right facet spondylosis and uncinate spondylosis, severe | | | right-sided neural foraminal narrowing. Mild left uncovertebral | | | spondylosis and moderate left facet spondylosis are present. Central | | | canal is patent. C4-5: Significant facet spondylosis and a small | | | posterior disc bulge without significant neural foraminal or central | | | spinal stenosis. C5-6: Circumferential disc osteophyte complex | | | causing moderate right and mild to moderate left-sided neural | | | foraminal narrowing. Question these mild central spinal stenosis. | | | C6-7: Circumferential disc osteophyte complex and facet spondylosis | | | causes mild to moderate bilateral neural foraminal narrowing. | | | C7-T1: Posterior disc bulge with mild left-sided neural foraminal | | | narrowing. Borderline grade 1 anterolisthesis of C7 over T1. | | | IMPRESSION - 1. No convincing acute cervical spine fracture or | | | evidence of traumatic malalignment. 2. Multilevel significant | | | degenerative disc disease and facet spondylosis as detailed above. | | | 3. Multilevel foraminal narrowing which is the most severe involving | | | the right C3-C4 neural foramen. Dictated and Signed by: Bartolome | | | MD Tawanda Electronically signed: 06/28/2019 9:09 PM | | + + + + + | Procedure Note | + + | Kobe, Rad Results In - 06/28/2019 9:[address] CERVICAL SPINE WO CONTRAST 06/28/2019 | | 8:29 PMHISTORY: trauma.COMPARISON: None.PROTOCOL: Thin section axial images of the | | cervical spine were obtained alongwith coronal and sagittal | | reformations.FINDINGS:Vertebral body heights are generally preserved. Multilevel | | moderate and severedisc marginal osteophytosis. Large anterior bridging disc marginal | | osteophytesare seen at C5-C6 and C6-C7. Partial fusion at C2-C3 and C3-C4. Fusion of | | theC2-C4 posterior elements.Normal cervical alignment. Prevertebral and paraspinal | | soft tissues show noacute abnormality. Cervicomedullary junction and atlantoaxial | | articulationsdemonstrate no acute abnormalities. Prominent bilateral carotid | | bulbcalcifications.C2-3: Moderate facet and uncinate spondylosis without significant | | neuralforaminal or central spinal stenosis.C3-4: Severe right facet spondylosis and | | uncinate spondylosis, severeright-sided neural foraminal narrowing. Mild left | | uncovertebral spondylosis andmoderate left facet spondylosis are present. Central canal | | is patent.C4-5: Significant facet spondylosis and a small posterior disc bulge | | withoutsignificant neural foraminal or central spinal stenosis.C5-6: Circumferential | | disc osteophyte complex causing moderate right and mild tomoderate left-sided neural | | foraminal narrowing. Question these mild centralspinal stenosis.C6-7: Circumferential | | disc osteophyte complex and facet spondylosis causes mildto moderate bilateral neural | | foraminal narrowing.C7-T1: Posterior disc bulge with mild left-sided neural foraminal | | narrowing.Borderline grade 1 anterolisthesis of C7 over T1.IMPRESSION -1. No convincing | | acute cervical spine fracture or evidence of traumaticmalalignment.2. Multilevel | | significant degenerative disc disease and facet spondylosis asdetailed above. 3. | | Multilevel foraminal narrowing which is the most severe involving the rightC3-C4 neural | | foramen.Dictated and Signed by: Bartolome Neff MD Electronically signed: 06/28/2019 9:09 | | PM | | | |C4-5: Significant facet spondylosis and a small posterior disc bulge without | |significant neural foraminal or central spinal stenosis. | | | |C5-6: Circumferential disc osteophyte complex causing moderate right and mild to | |moderate left-sided neural foraminal narrowing. Question these mild central | |spinal stenosis. | | | |C6-7: Circumferential disc osteophyte complex and facet spondylosis causes mild | |to moderate bilateral neural foraminal narrowing. | | | |C7-T1: Posterior disc bulge with mild left-sided neural foraminal narrowing. | |Borderline grade 1 anterolisthesis of C7 over T1. | | | | | |IMPRESSION - | |1. No convincing acute cervical spine fracture or evidence of traumatic | |malalignment. | |2. Multilevel significant degenerative disc disease and facet spondylosis as | |detailed above. | |3. Multilevel foraminal narrowing which is the most severe involving the right | |C3-C4 neural foramen. | | | | | |Dictated and Signed by: Bartolome Neff MD | | Electronically signed: 06/28/2019 9:09 PM | + + + +---------+ + + | Performing | Address | City/State/Zipcode | Phone Number | | Organization | | | | + +---------+ + + | [facility] | | | | + +---------+ + + CT Head wo Contrast (06/28/2019 8:29 PM PDT) + + | Specimen | + + | | + + + + + | Narrative | Performed At | + + + | EXAM: CT HEAD WO CONTRAST dated 06/28/2019 8:29 PM HISTORY: | [facility] | | trauma Comparison: 06/04/2019 TECHNIQUE: Noncontrast CT is | | | performed from the top of calvarium through the skull base. Coronal | | | and sagittal reformats are performed. FINDINGS: BRAIN: No | | | areas of increased attenuation to suggest intracranial hemorrhage. | | | There is no mass, mass effect, or midline shift. There are no | | | abnormal extra-axial fluid or air collections. There is | | | preservation of the benitez-white differentiation at this time. There | | | is mild cerebral atrophy. There is appropriate associated | | | prominence of the ventricles. There is moderate patchy to confluent | | | decreased density in the periventricular and subcortical white | | | matter. 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 Multiple | | | small remote lacunar infarcts are seen involving the basal ganglia | | | and seventh lateral pattern. Severe bilateral parasellar internal | | | carotid artery calcifications. SCALP/ CALVARIUM: The scalp and | | | skull are intact and are unremarkable. SINUSES / ORBITS/ MASTOIDS: | | | The visible mastoid air cells and paranasal sinuses are clear. The | | | globes and retroconal contents are intact and without evidence of | | | acute abnormality. IMPRESSION - 1. No acute intracranial | | | abnormality identified. 2. Stable senescent changes and remote | | | infarcts. Dictated and Signed by: Bartolome Neff MD | | | Electronically signed: 06/28/2019 8:51 PM | | + + + + + | Procedure Note | + + | Kobe, Rad Results In - 06/28/2019 8:54 PM PDT EXAM: CT HEAD WO CONTRAST dated | | 06/28/2019 8:29 PMHISTORY: traumaComparison: 06/04/2019TECHNIQUE: Noncontrast CT is | | performed from the top of calvarium through theskull base. Coronal and sagittal | | reformats are performed.FINDINGS: BRAIN: No areas of increased attenuation to suggest | | intracranial hemorrhage. There is no mass, mass effect, or midline shift. There are no | | abnormalextra-axial fluid or air collections. There is preservation of the | | benitez-whitedifferentiation at this time. There is mild cerebral atrophy. There | | isappropriate associated prominence of the ventricles. There is moderate patchyto | | confluent decreased density in the periventricular and subcortical whitematter. Remote | | infarct in the left posterior occipital lobe. Multiple smallremote lacunar infarcts are | | seen involving the basal ganglia and seventh lateralpattern. Severe bilateral parasellar | | internal carotid artery calcifications. SCALP/ CALVARIUM: The scalp and skull are | | intact and are unremarkable.SINUSES / ORBITS/ MASTOIDS: The visible mastoid air cells | | and paranasal sinusesare clear. The globes and retroconal contents are intact and | | without evidenceof acute abnormality.IMPRESSION -1. No acute intracranial abnormality | | identified.2. Stable senescent changes and remote infarcts.Dictated and Signed by: Bartolome | | MD Tawanda Electronically signed: 06/28/2019 8:51 PM | |matter. 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 Multiple small | |remote lacunar infarcts are seen involving the basal ganglia and seventh lateral | |pattern. Severe bilateral parasellar internal carotid artery calcifications. | | | |SCALP/ CALVARIUM: The scalp and skull are intact and are unremarkable. | | | |SINUSES / ORBITS/ MASTOIDS: The visible mastoid air cells and paranasal sinuses | |are clear. The globes and retroconal contents are intact and without evidence | |of acute abnormality. | | | |IMPRESSION - | |1. No acute intracranial abnormality identified. | |2. Stable senescent changes and remote infarcts. | | | | | | | |Dictated and Signed by: Bartolome Neff MD | | Electronically signed: 06/28/2019 8:51 PM | + + + +---------+ + + | Performing | Address | City/State/Zipcode | Phone Number | | Organization | | | | + +---------+ + + | [facility] | | | | + +---------+ + + ECG 12 lead (06/28/2019 8:13 PM PDT) + + + + + + | Component | Value | Ref Range | Performed | Pathologist | | | | | At | Signature | + + + + + + | VENTRICULAR | 86 | BPM | [facility] | | | RATE EKG | | | | | + + + + + + | ATRIAL RATE | 86 | BPM | [facility] | | [...] + + + + | Q-T | 336 | ms | [facility] | | | INTERVAL | | | | | + + + + + + | Q-T | 402 | ms | [facility] | | | INTERVAL | | | | | | (CORRECTED) | | | | | + + + + + + | P WAVE AXIS | 60 | degrees | [facility] | | + + + + + + | QRS AXIS | 49 | degrees | [facility] | | + + + + + + | T AXIS | 70 | degrees | [facility] | | + + + + + + | INTERPRETAT | Normal sinus | | [facility] | | | ION TEXT | rhythmCannot rule out | | | | | | Lateral infarct , age | | | | | | undeterminedWhen | | | | | | compared with ECG of | | | | | | 31-MAY-2019 | | | | | | 13:48,Previous subtle ST | | | | | | elevation in leads V4-6 | | | | | | is no longer | | | | | | presentConfirmed by | | | | | | LEONIDAS CALVO MD ([id number]) | | | | | | on 06/29/2019 6:06:39 AM | | | | + + [...] Diagnosis | + + | Fall from slip, trip, or stumble, initial encounter - Primary | + + | Injury of head, initial encounter | + + | Contusion of left elbow, initial encounter | + + | Effusion, left elbow | + + documented in this encounter Additional Health Concerns + + + + | Infection | Noted Time | Resolved Time | + + + + | Methicillin-resistant Staphylococcus aureus | 06/08/2019 9:39 AM | | | | PDT | | + + + + documented as of this encounter
--- OUTSIDE RECORDS SUMMARY | ~2020-03-14 | XMS | Encounter Summary ---
Demographics + + + | Address | [address] | | | [place] [address] | + + + | Home Phone | | + + + | Preferred Language | Unknown | + + + | Marital Status | | + + + | Scientology Affiliation | Unknown | + + + | Race | Unknown | + + + | Ethnic Group | Unknown | + + + Author + + + | Author | [facility] | | | and [place] | + + + | Organization | [facility] | | | and [...] Team Providers + +------+ + | Care Processing Tech Name | Role | Phone | [...] + | 01/10/ | Home Care | [facility] | Bernardo Souza | OT SECONDARY EVAL | | 2020 | Visit | [facility] [address] | [place], [place] | | | | | [place] | | | | | | [address] | | | | | | [phone] | | | +--------+ + + + [...] | | | | | [place] [address] | | | | | | [phone] | | | | | | | | +--------+ + + + + | 04/13/ | Office | Cardiology | Shawn Michael | | 2019 | Visit | | MD Marcelino [address] | | | | | | [address] | | | | | | [place] [address] | | | | | | [phone] | | | | | | | [...]
--- OUTSIDE RECORDS SUMMARY | ~2020-03-14 | XMS | Encounter Summary ---
Demographics + + + | Address | [address] | | | [place] [address] | + + + | Home Phone [...] Team Providers + +------+ + | Care Professor Of Management Name | Role | Phone | + [...] | +--------+ + + + + | 09/17/ | Home Care | [facility] [place] | Sam Quintanilla, | PT REPEAT VISIT | | 2019 | Visit | [place] [address] | NET REPAIRER [address] | | | | | [place] | [place] | | | | | [address] | [address] | | | | | [phone] | | | +--------+ + + + [...] +---------+ + + | Blood Pressure | 148/80 | 09/17/2019 10:10 AM | | | | | PST | | + +---------+ + + | Pulse | 80 | 09/17/2019 10:10 AM | | | | | PST | | + +---------+ + + | Temperature | - | - | | + +---------+ + + | Respiratory Rate | - | - | | + +---------+ + + | Oxygen Saturation | 96% | 09/17/2019 10:10 AM | on 2 lit O2 | [...] | | 2019 | Visit | | VICE PRESIDENT [facility]COM[facility] [address] | | | | | | [place] | | | | | | [address] | | | | | | | | +--------+ + + + + | 04/11/ | Appointment | Radiology | Shawn Michael | | | 2019 | | | MD [address] | | | | | | [address] [place] | | | | | | [place] [address] | | | | | | [phone] | | | | | | | | +--------+ + + + + | 04/13/ | Office | Cardiology | Shawn Michael | | | 2019 | Visit | | MD [address] | | | | | | [address] [place] | | | | | | [place] [address] | | | | | | [phone] | | | | | | | [...] | Problem: HH PT | | | NET REPAIRER instructed, | | exercise | IMPAIRED | Comple | | performed and reviewed | | Description: | STRENGTHGoal: HH PT | yoel | | HEP with [...] | | and cues for form. | | | | | | Therapist performed | | | | | | progressive resistance | | | | | | exercises in seated: | | | | | | ankle PF/DF, LAQ, hip | | | | | | abd/add, hip flexion, | | | | | | seated postural | | | | | | education, trunk | | | | | | rotation and trunk | | | | | | flexion. Therapist | | | | | | adjusted difficulty by | | | | | | changing position | | | | | | relative to gravity and | | | | | | use of therabands/manual | | | | | | [...] and | | | | | | comordities. Individual | | | | | | exercises continuously | | | | | | adjusted to pt | | | | | | tolerance. Verbal and | | | | | | tactile cues given for | | | | | | form as needed. | + + +--------+--------+ + | PT transfer | Problem: HH PT | | | NET REPAIRER instructed pt on | | training | [...] function. | + + +--------+--------+ + | Instruct in Fall | Problem: HH SHARED | | | NET REPAIRER educated pt on | | Prevention | [...]
--- OUTSIDE RECORDS SUMMARY | ~2020-03-14 | XMS | Encounter Summary ---
Demographics + + + | Address | [address] | | | [place] [address] | + + + | Home Phone [...] Team Providers + +------+ + | Care Coal Passer Name | Role | Phone | + [...] | +--------+ + + + + | 06/16/ | Home Care | [facility] | Wanda Barbosa, | CASE COMMUNICATION | | 2019 | Visit | [place] [address] | [place] | | | | | [place] | | | | | | [address] | | | | | | [phone] | | | +--------+ + + + [...] | | | | | [place] [address] | | | | | | [phone] | | | | | | | | +--------+ + + + + | 04/13/ | Office | Cardiology | Shawn Michael | | | 2019 | Visit | | MD Marcelino [address] | | | | | | [address] | | | | | | [place] [address] | | | | | | [phone] | | | | | | | [...]
--- OUTSIDE RECORDS SUMMARY | ~2020-03-14 | XMS | Encounter Summary ---
Demographics + + + | Address | [address] | | | [place] [address] | + + + | Home Phone [...] Providers + +------+ + | Care Credit Analyst Name | Role | Phone | [...] | +--------+ + + + + | 08/28/ | Home Care | [facility] [place] | Enrico, | SN SOC ([place]) | | 2019 | Visit | [place] [address] | Allison Mg RN | | | | | [place] | | | | | | [address] | | | | | | [phone] | | | +--------+ + + + [...] + | Blood Pressure | 120/60 | 08/28/2019 12:30 PM | | | | | PST | | + + + + + | Pulse | 88 | 08/28/2019 12:30 PM | | | | | PST | | + + + + + | Temperature | 35.8 C (96.5 F) | 08/28/2019 12:30 PM | | | | | PST | | + + + + + | Respiratory Rate | 20 | 08/28/2019 12:30 PM | | | | | PST | | + + + + + | Oxygen Saturation | 93% | 08/28/2019 12:30 PM | 3lpm via nc | | | | PST | | + + + + + | Inhaled Oxygen | - | - | | | Concentration | | | | + + + + + | Weight | 54 kg (119 lb) | 08/28/2019 12:30 PM | | | | | PST | | + + + + + | Height | 172.7 cm (5' 8") | 08/28/2019 12:30 PM | | | | | PST | | + + + + + | Body Mass Index | 18.09 | 08/28/2019 12:30 PM | | | | | PST | | + + + + + documented in this encounter Plan of Treatment +--------+ + + + + | Date | Type | Specialty | Care Team | Description | +--------+ + + + + | 03/23/ | Office | Anticoagulation | García Harris, | | | 2019 | Visit | | PRODUCTION SUPERINTENDENT HYDRO [address] | | | | | | [place] | | | | | | [address] | | | | | | | | +--------+ + + + + | 04/11/ | Appointment | Radiology | Shawn Michael | | 2019 | | | MD Marcelino [address] | | | | | | [address] | | | | | | [place] [address] | | | | | | [phone] | | | | | | | | +--------+ + + + + | 04/13/ | Office | Cardiology | Shawn Michael | | | 2020 | Visit | | MD Marcelino [address] | | | | | | [address] [place] | | | | | | [place] [address] | | | | | | [phone] | | | | | | | [...] START OF CARE | | Discipline - Residential | + + + + +--------+--------+ + + | Problem | Description | Start | Status | Goals | Interventio | | | | Date | | | ns | + + +--------+--------+ + + | Bleeding | | | | - | 2 problem | | Precautions | | 08/28/ | Active | | | | Disciplines: | | 2019 | | | interventio | | Residential | | | | | ns | | | | | | | scheduled/d | | | | | | | ocumented | | | | | | | in this | | | | | | | visit | + + +--------+--------+ + + | HH SHARED | | | | - | 2 problem | | DEPRESSION | | 08/28/ | Active | | | | Disciplines: | | 2018 | | | interventio | | Residential | | | | | ns | [...] Active | linked to | | | Residential | | 2018 | | scheduled/d | interventio | | | | | | ocumented | n | | | | | | interventio | scheduled/d | | | | | | n | ocumented | | | | | | | in this | | | | | | | visit 2 | | | | | | [...] + + | HH SHARED PAIN | | | | 1 goal | 3 goal | | Disciplines: | | 08/28/ | Active | linked to | interventio | | Residential | | 2019 | | scheduled/d | ns | | | | | | ocumented | scheduled/d | | | | | | interventio | ocumented | | | | | | n | in this | | | | | | | visit | + + +--------+--------+ + + | HH SN Medication | | | | 1 goal | 2 goal | | Management | | 08/28/ | Active | linked to | interventio | | Disciplines: | | 2019 | | scheduled/d | ns | | Residential | | | | ocumented | scheduled/d | | | | | | interventio | ocumented | | | | | | n | in this | | | | | | | visit | + + +--------+--------+ + + | HH SN Urinary | | | | 1 goal | 3 goal | | Elimination | | 08/28/ | Active | linked to | interventio | | Disciplines: | | 2018 | | scheduled/d | ns | | Residential | | | | ocumented | scheduled/d | | | | | | interventio | ocumented | | | | | | n | in this | | | | | | | visit | + + +--------+--------+ + + | Health Promotion | | | | - | 1 problem | | Disciplines: | | 08/28/ | Active | | | | Residential, | | 2018 | | | interventio | | Physical Therapy, | | | | | n | | Occupational | | | | | scheduled/d | | Therapy, Case | | | | | ocumented | | Public Health Educator, Physical | | | | | in this | | Rn Diabetes | | | | | visit | + + +--------+--------+ + + | Heart Failure/CHF | | | | - | 2 problem | | Disciplines: | | 08/28/ | Active | | | | Residential | | 2018 | | | interventio [...] | | | | visit | | Public Health Educator, Physical | | | | | | | Rn Diabetes | | | | | | + + +--------+--------+ + + | Respiratory Status | | | | 1 goal | 4 goal | | Disciplines: | | 08/28/ | Active | linked to | interventio | | Residential | | 2018 | | scheduled/d | ns | | | | | | ocumented | scheduled/d | | | | | | interventio | ocumented | | | | | | n | in this | | | | | | | visit | + + +--------+--------+ + + | Wound Management | | | | 1 goal | 2 problem | | Disciplines: | | 08/28/ | Active | linked to | | | Residential | | 2018 | | scheduled/d | interventio | | | | | | ocumented | ns | | | | | | interventio | scheduled/d | | | | | | n | ocumented | | | | | | | in this | | | | | | | visit 6 | | | | | | | [...] | UNDERSTANDING | | | | | + + +--------+-------+ + | HH PAIN | HH SHARED PAIN | | No | | + + +--------+-------+ + | HH SN MEDICATION | HH SN Medication | | No | | | MANAGEMENT | Management | | | | + + +--------+-------+ + | HH SN URINARY | HH SN Urinary | | No | | | ELIMINATION | Elimination | | | | + + +--------+-------+ + | HH SN RESPIRATORY | Respiratory Status | | No | | + + +--------+-------+ + | HH SN WOUND | Wound Management | | No | | | MANAGEMENT | | | | | + + +--------+-------+ + + + +--------+--------+ + | Intervention | Associated | Status | Varian | Visit Notes | | | Problem/Goal | | ce | | + + +--------+--------+ + | Bleeding | Problem: Bleeding | | | | | precautions | Precautions | Schedu | | | | | | led | | | + + +--------+--------+ + | Instruct in S&S to | Problem: Bleeding | | | | | report to RN/MD | Precautions | Schedu | | | | | | led | | | + + +--------+--------+ + | Assess depression | Problem: BALDEMAR SHARED | | | | | | DEPRESSION | Comple | | | | | | yoel | | | + + +--------+--------+ + | Instruct in | Problem: HH SHARED | | | | | Depression | DEPRESSION | Comple | | | | Management | | yoel | | | + + +--------+--------+ + | Instruct in Fall | Problem: BALDEMAR SHARED | | | | | Prevention | FALLSGoal: BALDEMAR FALL | Comple | | | | | PREVENTION | yoel | | | | | UNDERSTANDING | | | | + + +--------+--------+ + | Written | Problem: SHARED | | | | | Information for Fall | FALLSGoal: FALL | Comple | | | | Prevention | PREVENTION | yoel | | | | | UNDERSTANDING | | | | + + +--------+--------+ + | Fall risk | Problem: SHARED | | | | | identified | FALLS | Comple | | | | | | oyel | | | + + +--------+--------+ + [...] | Comple | | | | Order | | yoel | | | + + +--------+--------+ + | Shared written | Problem: SHARED | | | | | information for pain | PAINGoal: PAIN | Comple | | | | | | yoel | | | + + +--------+--------+ + | Assess side | Problem: SN | | | | | effects and response | Medication | Schedu | | | | to medications | ManagementGoal: | led | | | | | SN MEDICATION | | | | | | MANAGEMENT | | | | + + +--------+--------+ + | Skilled assessment | Problem: SN | | | | | medications | Medication | Schedu | | | | | ManagementGoal: | led | | | | | SN MEDICATION | | | | | | MANAGEMENT | | | | + + +--------+--------+ + | Assess for urinary | Problem: SN | | | Assessed urinary | | status and/or | Urinary | Comple | | status. See clinical | | infection | EliminationGoal: | yoel | | assessment in today's | | | SN URINARY | | | contact. Signs and | | | ELIMINATION | | | symptoms of infection | | | | | | present: No | + + +--------+--------+ + | HH Instruct in S | Problem: HH SN | | | | | and S bladder | Urinary | Comple | | | | infection | EliminationGoal: HH | yoel | | | | | SN URINARY | | | | | | ELIMINATION | | | | + + +--------+--------+ + | Instruct in fluid | Problem: SN | | | Instructed patient and | | intake | Urinary | Comple | | caregiver in fluid | | | EliminationGoal: | yoel | | intake of 4 to 6 glass | | | SN URINARY | | | per day as patient | | | ELIMINATION | | | states this is what she | | | | | | limits herself to. | | | | | | Patient does have | | | | | | Diagnosis of chf and is | | | | | | careful with her fluid | | | | | | intake. The patient | | | | | | and/or caregiver | | | | | | verbalized understanding | | | | | | of fluid intake | | | | | | instruction: Yes | + + +--------+--------+ + | Assess | Problem: Health | | | Patient also | | immunization status | Promotion | Comple | | verbalizes that she | | | | yoel | | would refuse a second | | | | | | flu vaccination beause | | | | | | she believes the one she | | | | | | recieved made her sick. | + + +--------+--------+ + | Assess for | Problem: Heart | | | See clinical | | cardiovascular | Failure/CHF | Comple | | assessment in today's | | status | | yoel | | contact. | + + +--------+--------+ + | Instruct in CHF | Problem: Heart | | | | | Management | Failure/CHF | Comple | | | | | [...] | assessment in today's | | | RESPIRATORY | yoel | | contact. | + + +--------+--------+ + | Instruct energy | Problem: Respiratory | | | Energy conservation | | conservation | StatusGoal: SN | Comple | | strategies including | | | RESPIRATORY | yoel | | breathing techniques | | | | | | demonstrated , | | | | | | instructed, reinforced | | | | | | with patient and | | | | | | caregiver. The patient | | | | | | and/or caregiver | | | | | | verbalized understanding | | | | | | of energy conservation | | | | | | strategies/breathing | | | | | | techniques as | | | | | | instructed:Yes. | + + +--------+--------+ + | Instruct in S&S to | Problem: Respiratory | | | The patient and | | report to RN/ | StatusGoal: SN | Comple | | caregiver instructed in | | | RESPIRATORY | yoel | | signs and symptoms of | | | | | | infection: pneumonia, | | | | | | complications and | | | | | | disease process and | | | | | | when to report to RN/MD | | | | | | . The patient and/or | | | | | | caregiver verbalized | | | | | | understanding of signs | | | | | | and symptoms and when to | | | | | | report to RN/MD as | | | | | | instructed:Yes. | + + +--------+--------+ + | Instruct oxygen | Problem: Respiratory | | | Instructed patient and | | | StatusGoal: HH SN | Comple | | caregiver in the use of | | | RESPIRATORY | yoel | | home oxygen therapy, | | | | | | safe/proper use of | | | | | | equipment, and | | | | | | precautions. The | | | | | | patient and/or caregiver | | | | | | verbalized | | | | | | understanding of home | | | | | | oxygen therapy as | | | | | | instructed:Yes. | + + +--------+--------+ + | HH Assess | Problem: Wound | | | | | Wound/Skin For | ManagementGoal: HH | Comple | | | | Progression | SN WOUND MANAGEMENT | yoel | | | + + +--------+--------+ + | HH INSTRUCT ON | Problem: Wound | | | | | DAILY SKIN | ManagementGoal: HH | Comple | | | | INSPECTION | SN WOUND MANAGEMENT | yoel | | | + + +--------+--------+ + | HH Instruct Wound | Problem: Wound | | | | | and Skin Care | ManagementGoal: HH | Comple | | | | | SN WOUND MANAGEMENT | yoel | | | + + +--------+--------+ + | HH Instruct on | Problem: Wound | | | | | Signs of Infection | ManagementGoal: HH | Comple | | | | | SN WOUND MANAGEMENT | yoel | | | + + +--------+--------+ + | HH Measure Wound | Problem: Wound | | | | | | ManagementGoal: HH | Comple | | | | | SN WOUND MANAGEMENT | yoel | | | + + +--------+--------+ + | Wound care | Problem: Wound | | | Dressing change to | | | ManagementGoal: HH | Comple | | sacrum performed by SN. | | | SN WOUND MANAGEMENT | yoel | | Old dressing removed. | | | | | | Well tolerated by | | | | | | patient.. Site Cleanse | | | | | | with, aseptic cleanser. | | | | | | Patted dry. Applied | | | | | | Other: bactroban to | | | | | | wound base covered with | | | | | | boarder foam. See | | | | | | Wound Assessment form | | | | | | for measurements and | | | | | | status of wound. | + + +--------+--------+ + | Instruct | Problem: Wound | | | | | prevention of | Management | Comple | | | | pressure ulcers | | yoel | | | + + +--------+--------+ + | Shared written | Problem: Wound | | | | | pressure ulcer | Management | Comple | | | | | | yoel | | | + + +--------+--------+ + documented in this encounter
--- OUTSIDE RECORDS SUMMARY | ~2020-03-14 | XMS | Encounter Summary ---
Demographics + + + | Address | [address] | | | [place] [address] | + + + | Home Phone [...] Providers + +------+ + | Care Electrical Technician Name | Role | Phone | [...] [place] | | | | | | [address] | | | | | | [phone] | | | +--------+ + + + [...] | | | | | [place] [address] | | | | | | [phone] | | | | | | | | +--------+ + + + + | 04/13/ | Office | Cardiology | Shawn Michael | | | 2019 | Visit | | MD Marcelino [address] | | | | | | [address] [place] | | | | | | [place] [address] | | | | | | [phone] | | | | | | | [...] - REPEAT VISIT | | Discipline - Correction | + + + + +--------+--------+ + + | Problem | Description | Start | Status | Goals | Interventio | | | | Date | | | ns | + + +--------+--------+ + + | HH SHARED FALLS | Falls | | | - | 1 problem | | Disciplines: | | //2 | Active | | | | Correction | | 020 | | | interventio [...] /20/2 | Active | | | | Correction | | 020 | | | interventio [...] | linked to | interventio | | Correction | | 020 | | scheduled/d | [...] | | | | ns | | Correction | | | | | scheduled/d | [...] | | Active | | | | Correction | | 020 | | | interventio [...]
--- OUTSIDE RECORDS SUMMARY | ~2020-03-14 | XMS | Encounter Summary ---
Demographics + + + | Address | [address] | | | [place] [address] | + + + | Home Phone | | + + + | Preferred Language | Unknown | + + + | Marital Status | | + + + | Mu-Ism Affiliation | Unknown | + + + | Race | Unknown | + + + | Ethnic Group | Unknown | + + + Author + + + | Author | [facility] | | | and [place] | + + + | Organization | [facility] | | | [...] Team Providers + +------+ + | Care Wire Charger Name | Role | Phone | + [...] | +--------+ + + + + | 09/10/ | Home Care | [facility] [place] | Layla Pablo | CASE COMMUNICATION | | 2019 | Visit | [place] [address] | | | | | | [place] | | | | | | [address] | | | | | | [phone] | | | +--------+ + + + [...] [place] | | | | | | [address] | | | | | | | | +--------+ + + + + | 04/11/ | Appointment | Radiology | Shawn Michael | | | 2019 | | | MD Marcelino [address] | | | | | | [address] | | | | | | [place] [address] | | | | | | [phone] | | | | | | | | +--------+ + + + + | 04/13/ | Office | Cardiology | Shawn Michael | | | 2020 | Visit | | MD Marcelino [address] | | | | | | [address] [address] | | | | | | [place] [address] | | | | | | [phone] | | | | | | | [...]
--- OUTSIDE RECORDS SUMMARY | ~2020-03-14 | XMS | Encounter Summary ---
Demographics + + + | Address | [address] | | | [place] [address] | + + + | Home Phone | | + + + | Preferred Language | Unknown | + + + | Marital Status | | + + + | Tenriism Affiliation | Unknown | + + + [...] Team Providers + +------+ + | [facility] Name | Role | Phone | [...] Specialty | Home Health | Diagnoses | Wei, | | | | Services | Services | | Keyur Murray MD | | | | Required | | Diverticulit | [address] | | | | | | is Chronic | [place] | | | | | | obstructive | [place], [place] | | | | | | pulmonary | [id number] | | | | | | disease, | Phone: | | | | | | unspecified | [phone] | | | | | | COPD type | Fax: | | | | | | ([facility]) | [phone] | | +--------+ + + + + + Reason for Visit + + + | Reason | Comments | + + + | Abdominal Pain | | + + + Auth/Cert +--------+--------+ + + + + | Status | Reason | Specialty | Diagnoses / | Referred By | Referred To | | | | | Procedures | Contact | Contact | +--------+--------+ + + + + | | | | Diagnoses | | | | | | | | | | | | | | Diverticulit | | | | | | | is Elevated | | | | | | | troponin | | | | | | | Sepsis, due | | | | | | | to | | | | | | [...] | | | (HCC) | | | +--------+--------+ + + + + Encounter Details +--------+ + + + + | Date | Type | Department | Care Team | Description | +--------+ + + + + | 09/01/ | Hospital | [facility] | Sammy Milan | Sepsis, due to | | 2019 - | Encounter | [facility] | DO Francesco [address] | unspecified | | | | [address] [place] | [address] [place] | organism, | | 09/08/ | | [place] [address] | [place] [address] | unspecified whether | | 2019 | | [phone] | [phone] | acute organ | | | | | | dysfunction present | | | | | Anna Hastings MD | ([facility]) (Primary Dx); | | | | | [address] | Diverticulitis; | | | | | [place], [place] | Elevated troponin; | | | | | [address] | Abnormal CT scan, | | | | | | gastrointestinal | | | | | Wayne Munoz, | tract; Pancreatic | | | | | [address] | mass; Chronic | | | | | [place], [place] | obstructive | | | | | [address] | pulmonary disease, | | | | | [phone] | unspecified COPD | | | | | | type ([facility]) | +--------+ + + + [...] + | Blood Pressure | 157/69 | 09/08/2019 7:44 AM | | | | | PST | | + + + + + | Pulse | 82 | 09/08/2019 9:01 AM | | | | | PST | | + + + + + | Temperature | 37.2 C (99 F) | 09/08/2019 7:44 AM | | | | | PST | | + + + + + | Respiratory Rate | 20 | 09/08/2019 9:01 AM | | | | | PST | | + + + + + | Oxygen Saturation | 98% | 09/08/2019 9:01 AM | | | | | PST | | + + + + + | Inhaled Oxygen | - | - | | | Concentration | | | | + + + + + | Weight | 56.5 kg (124 lb 9 | 09/08/2019 2:56 AM | | | | oz) | PST | | + + + + + | Height | 165.1 cm (5' 5") | 09/01/2019 10:28 PM | | | | | PST | | + + + + + | Body Mass Index | 20.73 | 09/01/2019 10:28 PM | | | | | PST | | + + + + + documented in this encounter Discharge Summaries Keyru Carvajal MD - 09/08/2019 12:18 PM PST [facility] DISCHARGE SUMMARY Pt. Name/Age/: Ángela Laureano 89 y.o. 1930 Date of Admission: 09/01/2019 Date of Discharge: 09/08/2019 Admitting Physician: Anna Hastings MD Primary Care [...] on 3 L nasal cannula chronically at [facility], secondary to COPD 4. Chronic blood loss [...] 9. Sepsis syndrome secondary to problem #1 DISCHARGE MEDICATIONS: Discharge Medications New Medications Details ertapenem (INVanz) IVPB (custom dose) 1 g Inject 1 g into the vein every 24 hours. Indications: Acute Abdominal Condition Start: September 09, 2019 polyethylene glycol packet Take 1 diluted packet by mouth Daily as needed for Constipation. aka: MIRALAX senna 8.6 mg tablet Take by mouth Twice daily as needed for Constipation. aka: SENOKOT Changed Medications Details budesonide 0.5 mg/2 mL nebulizer solution Take 2 mLs by nebulization 2 times daily. Dx Code J44.90 What changed: when to take this aka: PULMICORT carvedilol 12.5 mg tablet Take 1 tablet by mouth 2 times daily (with breakfast & dinner). What changed: medication strength how much to take aka: COREG dicyclomine 10 mg capsule Take 1 capsule by mouth Daily as needed for Other (As needed for abdominal cramps). What changed: reasons to take this aka: BENTYL HYDROcodone-acetaminophen 7.5-325 mg per tablet Take 1 tablet by mouth every 8 hours as needed for Pain. What changed: when to take this aka: NORCO predniSONE 10 mg tablet Take 10 mg by mouth Daily. What changed: Another medication with the same name was removed. Continue taking this medi cation, and follow the directions you see here. aka: DELTASONE Unchanged Medications Details acetaminophen 325 [...] on buttocks bisacodyl 5 mg EC tablet Take 5 mg by mouth Daily. aka: DULCOLAX brimonidine 0.2% ophthalmic solution Place 1 drop into both eyes 2 times daily. aka: ALPHAGAN calcium carbonate 750 MG chewable tablet Take 2 tablets by mouth Daily as needed for Heartburn. aka: TUMS EX CALCIUM CARBONATE PO Take 1,000 mg by mouth Daily. cetirizine 10 mg tablet Take 1 tablet by mouth Daily. aka: zyrTEC CRANBERRY CONCENTRATE PO Take 15,000 mg by mouth Daily. docusate sodium 250 MG capsule Take 250 mg by mouth every morning. Hold for loose stools aka: COLACE dorzolamide 2% ophthalmic solution Place 1 drop into both eyes 2 times daily. aka: TRUSOPT estradiol 0.1 mg/g vaginal cream Apply 1 [...] 1 tablet by mouth Daily. aka: LASIX latanoprost 0.005% ophthalmic solution Place 1 drop [...] as needed for Nausea. aka: ZOFRAN ODT oxybutynin 10 MG 24 hr tablet Take 1 tablet by mouth Daily. aka: DITROPAN-XL oxygen Inhale 3 L into the lungs [...] ient. 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 VITAMIN D PO Take 600 Units by mouth every morning. Details escitalopram 5 MG tablet Take 1 tablet by mouth Daily. aka: LEXAPRO DISCHARGE INSTRUCTIONS: Follow-up Information Candido Link MD On 09/14/2019. Specialty: Internal Medicine Why: This is your hospital follow up appointment, scheduled for 10:00, Please check in at 9:45. Contact information: [address] [place] [id number] RESULTS: ENHANCED CT ABDOMEN AND PELVIS 09/01/2019 11:57 PM CLINICAL HISTORY: Abdominal pain, acute, nonlocalized COMPARISON: CT August 21 and more remote imaging TECHNIQUE: Axial images are performed through the abdomen and pelvis following the uneventful intravenous administration of 75 mL Omnipaque 350 contrast. Coronal and sagittal reformations are also performed. ABDOMEN FINDINGS: An aortic valve prosthesis is again partially imaged. Coronary arterial calcification is again evident. A very small dependent low attenuation right pleural effusion is slightly larger. Bronchial wall thickening and clustered nodularity are again evident in the imaged right lower lung, but is less conspicuous on the left. The gallbladder is surgically absent and there is similar prominent, generalized biliary ductal dilation with the common duct again measuring up to 2.3 cm. There is similar borderline to mild dilation of the main pancreatic duct up to a diameter of 7 mm. No mechanical cause for obstruction is visible. Generalized pancreatic atrophy is again apparent. There is a stable 1.5 cm round, high attenuation, likely enhancing lesion in the far inferior, posterior right hepatic lobe, again favoring a hemangioma or other benign lesion. The spleen and adrenal glands are unremarkable. Small hypodensities are again visible in the kidneys and favor cysts. No nephroureterolithiasis or hydroureteronephrosis is evident. Previously described rectosigmoid wall thickening appears more pronounced from imaging of August 21. Extensive diverticulosis is again noted in this region and extending into the descending colon. There is persistent stranding of the perirectal and sigmoid pericolonic fat. The previously described blind ending outpouching along the posterior margin of the bowel near the rectosigmoid junction is again evident, but appears to contain more fluid than gas presently. This measures up to approximately 3.2 cm in diameter. No free air or organized fluid is evident otherwise. Trace perihepatic fluid is noted. There is a small volume of stool throughout the nondilated colon elsewhere. The stomach and small bowel are unremarkable, allowing for probable peristalsis in the gastric body. The appendix is not confidently identified. No pathologic lymph node enlargement or hernia is evident. 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 Noncalcified plaque again mild to moderately narrows the infrarenal aortic lumen. There is calcified plaque at the origins of the visceral aortic branches. Solid osseous fusion and changes of posterior decompression are again noted at the lumbosacral junction, in the setting of chronic anterolisthesis. Degenerative changes, anterolisthesis and stenosis are again noted immediately above this level. There is extensive spondylosis elsewhere. PELVIS FINDINGS: The uterus is absent and the ovaries are not identified. The bladder is unremarkable. No pathologic lymph node enlargement or hernia is evident. There are [id number] degenerative changes of the hips and pubic symphysis. IMPRESSION: 1. MORE PRONOUNCED WALL THICKENING NEAR THE RECTOSIGMOID JUNCTION COMPARED WITH IMAGING OF AUGUST 21. WHILE DIVERTICULITIS IS A CONSIDERATION, THERE IS SIGNIFICANT CONCERN FOR MALIGNANCY GIVEN THE CHRONICITY OF THIS PROCESS. AN OUTPOUCHING ALONG THE POSTERIOR MARGIN OF THE BOWEL IN THIS VICINITY NOW CONTAINS A GREATER VOLUME OF FLUID IN ADDITION TO GAS. NO FREE INTRAPERITONEAL GAS OR OTHER FLUID COLLECTION IS EVIDENT. 2. SIMILAR PROMINENT BILIARY DUCTAL DILATION AND BORDERLINE TO MILD PANCREATIC DUCTAL DILATION, STATUS POST CHOLECYSTECTOMY. 3. SLIGHTLY GREATER BUT SMALL VOLUME OF RIGHT PLEURAL FLUID WITH PERSISTENT BRONCHIAL WALL THICKENING AND CLUSTERED NODULARITY IN THE IMAGED RIGHT LUNG BASE, FAVORING AN AIRWAY CENTERED INFECTIOUS OR INFLAMMATORY PROCESS. PREVIOUSLY VISIBLE NODULARITY IN THE LEFT LOWER LUNG HAS IMPROVED IN THE INTERIM. 4. 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 Preliminary results of this study were reported to the ER staff by the [facility] Imaging radiologist on September 02, 2019 at 0044 hours. Dictated and Signed by: Sivakumar Ramon MD Electronically signed: 09/02/2019 1:14 PM Results for ÁNGELA LAUREANO ( ) as of 09/10/2019 19:24 Ref. Range 09/02/2019 06:03 WBC Latest Ref Range: 4.0 - 11.0 K/uL 19.1 (H) RBC COUNT Latest Ref Range: 3.70 - 5.20 M/uL 3.60 (L) TOTAL Hemoglobin Latest Ref Range: 11.5 - 16.0 g/dL 10.5 (L) Hematocrit Latest Ref Range: 34.0 - 47.0 % 33.7 (L) MCV Latest Ref Range: 83.0 - 101.0 fL 93.6 MCH Latest Ref Range: 28.0 - 35.0 pg 29.2 MCHC Latest Ref Range: 32.0 - 36.0 g/dL 31.2 (L) RDW-CV Latest Ref Range: <15.0 % 16.2 (H) RDW-SD Latest Ref Range: 35.1 - 46.3 fL 55.3 (H) Platelet Count Latest Ref Range: 140 - 440 K/uL 138 (L) Results for ÁNGELA LAUREANO ( ) as of 09/10/2019 19:24 Ref. Range 09/01/2019 23:05 Na Latest Ref Range: 136 - 145 mmol/L 142 K Latest Ref Range: 3.4 - 5.1 mmol/L 3.9 Chloride Latest Ref Range: 98 - 107 mmol/L 106 Carbon dioxide Latest Ref Range: 20 - 31 mmol/L 32 (H) Anion Gap Latest Ref Range: 3 - 16 mmol/L 4 Glucose Latest Ref Range: 60 - 106 mg/dL 85 BUN Latest Ref Range: 9 - 23 mg/dL 25 (H) Creatinine Latest Ref Range: 0.55 - 1.02 mg/dL 0.68 BUN/Creatinine Ratio Unknown 36.8 Albumin Latest Ref Range: 3.2 - 4.8 g/dL 3.2 Albumin/Globulin Ratio Latest Ref Range: 0.8 - 1.9 1.6 Total Protein Latest Ref Range: 5.7 - 8.2 g/dL 5.2 (L) EGFR IF NOT Latest Ref Range: >=60 mL/min/1.73m2 >60 Calcium Latest Ref Range: 8.7 - 10.4 mg/dL 8.6 (L) ALK PHOS Latest Ref Range: 46 - 116 U/L 112 ALT (SGPT) (REF) Latest Ref Range: 10 - 49 U/L 29 AST (SGOT) (REF) Latest Ref Range: 0 - 34 U/L 18 Bilirubin Total (Calculated) Latest Ref Range: 0.3 - 1.2 mg/dL 0.5 Globulin Latest Ref Range: 2.1 - 3.8 g/dL 2.0 (L) Lipase Latest Ref Range: 12 - 53 U/L 37 Lactate Latest Ref Range: 0.5 - 2.2 mmol/L 0.8 Troponin I Latest Ref Range: <0.06 ng/mL 0.35 (H) HOSPITAL COURSE: Please refer to the H&P for full details. 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 He has a history of severe diverticula r disease with dense of diverticular spasm and and sigmoid colon stricture. Follow-up CT im aging performed the emergency room suggested the patient could have acute diverticulitis wit h also concern expressed for malignancy albeit colonoscopy had been performed 2 months previ ously. The patient was admitted and placed on IV Zosyn and then converted to meropenem. Gi leonela the plan for 2 weeks of IV antibiotics at home she was converted to ertapenem 1 g IV millie ly the PICC line placed to complete a course of antibiotics. Oliva with her son the risk of for her to develop C. difficile enterocolitis and should she develop diarrhea to contact us and be assessed for this diagnosis. Otherwise the patient initially had some agitation that required Zyprexa which was discontinued at discharge with resumption of her outpatient Bouchra zepam and she was educated relative to Bentyl use noting she had been using it frequently an d I advised her this would complicate her course by causing further constipation and that e should use it only on a as needed basis for pain. Otherwise, while here she did undergo f ollow-up echocardiography persistent but not worsening stenosis across her TAVR. Because e patient's problem with recurrent bleeding the recommendation is to continue aspirin daily. She does have met with cardiology in October the patient was discharged home on the sixth hospital day with home health follow-up. PHYSICAL EXAM: Temp: 37.2 C (99 F), Pulse: 82, Resp: 20, BP: 157/69, SpO2 98 % on nasal cannula at placido w rate 2L/min Temp Min: 36.3 C (97.3 F) Max: 37.2 C (99 F) Weight: 56.2 kg (124 lb) Patient seen and examined by me on discharge day Greater than 30 minutes were spent on discharge and coordination of post-hospital care. Electronically signed by: Keyur Carvajal MD, 09/08/2019 1:01 PM [facility] Portions of this chart may have been created with [employer] voice recognition software. Occasi onal wrong-word or sound-alike substitutions may have occurred due to the inherent owen itations of voice recognition software. Please read the chart carefully and recognize, using context, where these substitutions have occurred documented in this encounter Medications at Time [...] 1 capsule by | | 0 | /05/25 | | | Vitamins-Minerals | mouth 2 [...] documented as of this encounter Progress Notes Keyur Carvajal MD - 09/07/2019 4:33 PM PST [facility] Hospitalist Progress Note Ángela Laureano is a 89 y.o. female ASSESSMENT and PLAN: 1. Acute diverticulitis with failure of outpatient antibiotic therapy Plan is to give this patient the antibiotic coverage. She is received meropenem today at d ay 3 of therapy. Plan will be to convert her to ertapenem tomorrow which will be the fourth day of Carbapenem therapy with a plan for 10 additional days of IV antibiotic therapy and t hen discontinuance of her PICC line. Note patient had colonoscopy 06/2019 showing severe diverticulosis of the sigmoid colon with narrowing of the colon associated with diverticular opening and evidence of diverticular sp asm. Also stricture noted in the sigmoid colon. Evidence of tumor was found. 2. Chronic blood loss anemia with presumed AVMs Hemoglobin stable at 9.0. 3. Elevated troponin with demand ischemia Patient had coronary angiography in 01/22 which did not show significant obstructive lesions . 4. History of TAVR in a TAVR placement with subsequent possible thrombus Interpretation of the patient's echo would suggest that this is improving. She continues o n aspirin therapy only because of gastrointestinal bleeding. 5. Chronic hypoxic respiratory failure secondary COPD Patient on baseline O2. SUBJECTIVE: Patient reports reduction in pain since admission. She denies shortness of breath or chest discomfort. She denies nausea. VITALS: Temp: 36.6 C (97.9 F), Pulse: 93, Resp: 20, BP: 162/72, SpO2 98 % on nasal cannula at f low rate 2L/min Temp Min: 35.8 C (96.4 F) Max: 37.3 C (99.1 F) Weight: 56.2 kg (124 lb) Intake/Output Summary (Last 24 hours) at 09/07/2019 1636 Last data filed at 09/07/2019 1600 Gross per 24 hour Intake 1722 ml Output 1525 ml Net 197 ml PHYSICAL EXAM: Cardiovascular: Rhythm with distant heart sounds Respiratory: Clear bilaterally Abdomen: Soft with minimal left lower quadrant tenderness Extremities: Trace edema DIAGNOSTIC STUDIES: Available data and images were reviewed personally. Significant results and findings are a ddressed here or in the Assessment and Plan. Lab Results Component Value Date HGB 9.0 (L) 09/07/2019 HCT 29.5 (L) 09/07/2019 PLT 172 09/07/2019 WBC 9.3 09/07/2019 Lab Results Component Value Date NA 145 09/05/2019 K 4.0 09/05/2019 CL 108 (H) 09/05/2019 CO2 31 09/05/2019 CREA 0.72 09/05/2019 BUN 13 09/05/2019 MG 2.0 09/05/2019 CRP 26.80 (H) 06/02/2019 ESR 4 06/06/2019 BNP 448 (H) 08/19/2019 Glucose, POC Date/Time Value Ref Range Status [...] Final Xr Chest Ap Portable Result Date: 09/06/2019 AP CHEST 09/06/2019 2:22 PM CLINICAL HISTORY: picc line placement COMPARISON: Radiography No vember 28 and more remote imaging FINDINGS: An aortic valve prosthesis is again visible. A left approach PICC is now present, terminating on the final image at the level of the cavoat rial junction. There is similar borderline cardiomegaly. The pulmonary vasculature is unre markable. Hazy reticular opacity at the right base is more confluent and minimal right pleu ral fluid is again suggested. The lungs are clear elsewhere without pneumothorax. There is multilevel spondylosis. Degenerative changes of the right shoulder are also apparent. 1. LEFT APPROACH PICC ULTIMATELY TERMINATING AT THE LEVEL OF THE CAVOATRIAL JUNCTION. 2. MORE CONFLUENT RIGHT BASILAR RETICULAR OPACITY COULD REFLECT CONSOLIDATION RELATED TO AIRWA Y DISEASE NOTED ON PREVIOUS CT. A SMALL RIGHT PLEURAL EFFUSION IS AGAIN SUGGESTED. 3. GLENDY LAR BORDERLINE CARDIOMEGALY. Dictated and Signed by: Sivakumar Ramon MD Electronically signed: 09/06/2019 2:27 PM Total time of approximately 25 minutes was spent with the patient and/or patient's family, and/or on the patient's floor/unit, of which more than 50% was spent counseling and/or coord ination the patient's care as outlined above. Keyur Carvajal MD 09/07/2019 4:36 PM [facility] Portions of this chart may have been created with [employer] voice recognition software. Occasi onal wrong-word or sound-alike substitutions may have occurred due to the inherent owen itations of voice recognition software. Please read the chart carefully and recognize, using context, where these substitutions have occurred Wanda Bauer RN - 09/06/2019 2:43 PM PSTVascular Access Team Note- Following Infusion Nurses Society standards of care; a BARD 4fr single-lumen PICC inserted x 2stick, using Ultrasound/ modified Seldinger technique. PICC advanced to 40cm and confirme d by cxr. Ok to use. Lumen draws bright red blood briskly and flushes easily with normal carroll ine. SBAR report to FUNMILAYO Reynolds who continues care. Thank you for this referral. Electronically signed by: Wanda Simpson RN 09/06/2019 2:43 PM [facility], Ann-Marie Dahl MD - 09/06/2019 12:17 PM PSTFormatting of this note might be different from the origin al. [facility] HOSPITALIST PROGRESS NOTE Pt. Name/Age/: Ángela Laureano 89 y.o. 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 Pt reportedly having dark stools for a few days CRUISE GUIDE altho on supplemental oral iron. The patient was discharged from [facility] about a week prior to this admission after treatment for diverticulitis and melena. During her hospital stay, she underwent EGD which did not re veal any source for her melena. 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 She had initially been on zosyn and was transitioned to Augmentin upon discharge which she took until 3 days CRUISE GUIDE. After completing her abx, she subsequently developed recurrent abdominal pain, prompting a return to [facility] presumably with a flare in her diverticulitis. A CT scan was obtained which revealed progression of bowel wall thickening which was concerning for persistent diverticu lar disease vs malignancy. In addition, severe dilatation of intra-hepatic, extra-hepatic a nd pancreatic ducts was seen. A RUQ ultrasound was performed which confirmed biliary and pa ncreatic ductal dilatation which appears to have worsened. An MRCP was then performed and r eviewed by Dr Stoddard from GI who recommended EUS. At the request of the pt's son (who reports that he is POA altho pt seems to have capacity to make her own decisions) old records from [facility]SH ([facility]). Review of these records indicate that biliary ductal dilata tion and the ill-defined pancreatic mass is, at worst, minimally progressive. Currently the pt is awake, alert and appropriately responsive. She reported minimal abd di scomfort in the lower quadrants. This AM she is considerably more comfortable, OOB to chair, in no distress. Pt asked appro priate questions concerning subsequent management and goals. No additional complaints reported at this time. Continuing abx, well tolerated. In anticipation of dc for completion of abx, PICC line ord ered. Additionally at the suggestion of Pharmacy, zosyn switched to meropenem at decreased frequency of dosing. No additional problems reported. Past Medical History: Past Medical History: Diagnosis Date Aortic stenosis COPD (chronic obstructive pulmonary disease) (HCC) Coronary artery disease Kidney stone Rheumatic fever Tuberculosis Venereal disease Past Surgical History: Procedure Laterality Date 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 CHOLECYSTECTOMY COLONOSCOPY N/A 06/11/2019 Procedure: COLONOSCOPY-Possible Flex Sig; Surgeon: Edwin Stoddard MD; Location: [facility] PROCEDURE UNIT HYSTERECTOMY NIRMAL AND BSO TONSILLECTOMY AND ADENOIDECTOMY UPPER GASTROINTESTINAL ENDOSCOPY N/A 06/07/2019 Procedure: EGD; Surgeon: Edwin Stoddard MD; Location: [facility] PROCEDURE UN[facility] UPPER GASTROINTESTINAL ENDOSCOPY N/A 08/20/2019 Procedure: EGD; Surgeon: John Grimes MD; Location: [facility] PROCEDURE UNIT Allergies: Allergies Allergen Reactions Metronidazole GI Upset Flagyl [Metronidazole] Nausea And Vomiting and GI Upset Percocet [Oxycodone] Unknown Pregabalin Unknown Lyrica Sulfa Antibiotics Unknown Current Medications: Current Facility-Administered Medications Medication Dose Route Frequency Provider Last Rate Last Dose acetaminophen (TYLENOL) tablet 650 mg 650 mg Oral Q6H PRN Anna Hastings MD 650 mg a t 09/05/19 0514 adult multivitamin with minerals/iron tablet 1 tablet 1 tablet Oral Daily Anna barber MD 1 tablet at 09/06/19 0946 albuterol 2.5 mg/3 mL nebulizer solution 2.5 mg 2.5 mg Nebulization RT Q4H PRN Anna Hastings MD 2.5 mg at 09/03/19 0225 albuterol-ipratropium 2.5-0.5 mg/3 mL nebulizer solution 3 mL 3 mL Nebulization 4x Millie ly Anna Hastings MD 3 mL at 09/06/19 1200 aspirin chewable tablet 81 mg 81 mg Oral Daily Wayne Munoz MD 81 mg at 9 0948 atorvaSTATin (LIPITOR) tablet 20 mg 20 mg Oral JOHN Hastings MD 20 mg at 0948 bisacodyl (DULCOLAX) EC tablet 5 mg 5 mg Oral Daily PRN Anna Hastings MD brimonidine (ALPHAGAN) 0.2% ophthalmic solution 1 drop 1 drop Both Eyes BID Anna powell MD 1 drop at 09/06/19 0949 budesonide (PULMICORT) nebulizer solution 0.5 mg 0.5 mg Nebulization BID Anna Hastings MD 0.5 mg at 09/06/19 0814 calcium carbonate (TUMS) chewable tablet 1,000 mg 1,000 mg Oral Daily Jazz Packer D 1,000 mg at 09/06/19 0946 calcium carbonate (TUMS) chewable tablet 1,000 mg 1,000 mg Oral Q4H PRN Anna Hastings MD carvedilol (COREG) tablet 12.5 mg 12.5 mg Oral BID Wayne Munoz MD dicyclomine (BENTYL) capsule 10 mg 10 mg Oral Daily PRN Anna Hastings MD 10 mg at 1 11/07/18 0500 docusate sodium (COLACE) 50 mg/5 mL liquid 250 mg 250 mg Oral JOHN Hastings MD 250 mg at 09/04/19 0849 dorzolamide (TRUSOPT) 2% ophthalmic solution 1 drop 1 drop Both Eyes BID Anna Hastings MD 1 drop at 09/06/19 0952 escitalopram (LEXAPRO) tablet 5 mg 5 mg Oral Daily Anna Hastings MD 5 mg at 9 0947 ferrous sulfate tablet 325 mg 325 mg Oral Daily with breakfast Anna Hastings MD 325 mg at 09/06/19 0944 HYDROcodone-acetaminophen (NORCO) 7.5-325 mg per tablet 1 tablet 1 tablet Oral Q8H PRN Anna Hastings MD 1 tablet at 09/06/19 0540 HYDROmorphone (DILAUDID) injection 0.2 mg 0.2 mg Intravenous Q3H PRN Wayne Munoz MD 0.2 mg at 09/03/19 1142 latanoprost (XALATAN) 0.005% ophthalmic solution 1 drop 1 drop Both Eyes Nightly Rebeca Hastings MD 1 drop at 09/05/192023 lisinopril (PRINIVIL, ZESTRIL) tablet 20 mg 20 mg Oral Daily Wayne Munoz MD 20 mg at 09/06/19 0944 melatonin tablet 3 mg 3 mg Oral Nightly PRN Anna Hastings MD meropenem (MERREM) 500 mg in sodium chloride 0.9% 50 mL IVPB 500 mg Intravenous 3 time s per day Wayne Munoz MD morphine injection 1-4 mg 1-4 mg Intravenous Q4H PRN Anna Hastings MD 1 mg at 09/06 1005 nitroglycerin (NITROSTAT) SL tablet 0.4 mg 0.4 mg Sublingual Q5 Min PRN Anna Hastings MD OLANZapine zydis (zyPREXA ZYDIS) disintegrating tablet 5 mg 5 mg Oral Nightly Wayne Munoz MD 5 mg at 09/05/192022 ondansetron (ZOFRAN) injection 4 mg 4 mg Intravenous Q6H PRN Anna Hastings MD oxybutynin (DITROPAN XL) ER tablet 10 mg 10 mg Oral Daily Anna Hastings MD 10 mg at 09/06/19 0948 pantoprazole (PROTONIX) injection 80 mg 80 mg Intravenous BID Anna Hastings MD 80 m g at 09/06/19 0944 polyethylene glycol (MIRALAX) powder 17 g 17 g Oral Daily PRN Anna Hastings MD 17 g at 09/05/19 0904 polyvinyl alcohol (LIQUITEARS) 1.4% ophthalmic solution 2 drop 2 drop Both Eyes QAM Heidi Hastings MD 2 drop at 09/06/19 0949 predniSONE (DELTASONE) tablet 10 mg 10 mg Oral Daily Anna Hastings MD 10 mg at 11/24 0948 senna (SENOKOT) tablet 8.6 mg 8.6 mg Oral BID PRN Anna Hastings MD 8.6 mg at 0904 sodium chloride (OCEAN) 0.65% nasal spray 2 spray 2 spray Each Nare Q2H PRN Anna powell MD 2 spray at 09/05/19 0340 Exam: Vital Signs on Arrival: Temp: (!) 39.1 C (102.3 F) BP: 135/49 Pulse: 89 Resp: 18 SpO2: 94 % on Most Recent Vital Signs: Temp: 36.3 C (97.3 F) BP: 158/72 Pulse: 93 Resp: 20 SpO2: 93 % on Admission Weight: Weight: 56.2 kg (124 lb) BMI: Body mass index is 22.12 kg/m. Physical Examination: General: WD, elderly, quite hard of hearing, OOB to chair, comfortable HEENT: Pupils equal, conjugate gaze Cardiovascular: Regular rate and rhythm; 2/6 systolic/diastolic murmur 2nd (R) ICS Respiratory: Coarse insp crackles both bases, unchanged Abdomen: Softly distended, mild lower quadrant tenderness, no masses, normal bowel sounds Extremities: No edema, erythema or deformity Neurological: Hard of hearing, otherwise appropriately responsive and grossly nonfocal Code Status: FULL Assessment and Plan: 1. 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 No abscess noted. Started back on pip/tazo for presumed relapse of diverticulitis. Favor at least 14day abx, stop date 09/11. In order to minimize dosing frequency, pharmacy suggest ed switch to meropenem 500mg Q8hr. PICC insertion ordered in anticipation of dc and complet ion of outpt abx. As noted above dilatation of biliary and pancreatic ducts as well as ill-defined mass in pa ncreatic head has been followed for at least a year at [facility]. Given an apparent indolent course would at this point favor f/u with physicians from [facility] who are more familiar with pt's case. 2. 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 No me arcadio noted at this time. Will continue on protonix. 3. Elevated troponin, likely demand, hx of CAD--No symptoms of ACS and EKG unremarkable. T roponins now trending down. Aspirin 81mg daily. Continue lipitor. On lisinopril and carve dilol, increase to 12.5mg bid for elevated BP; no c/o chest pain. Pt s/p TAVR; , AI on exam. 4. Chronic hypoxic respiratory failure 2/2 COPD--Not in acute exacerbation at this time. C ontinue home pulmicort, duonebs, chronic prednisone. 5. Dispo: continued acute care of diverticular disease. Switch to meropenem as outlined. P ICC insertion and dc to home vs facility within next few days. FEN: fat, cholesterol modified. PPx: SCDs Code: FULL, per previous documentation per son's request Electronically signed by: Wayne Munoz MD, 09/06/2019 12:17 PM [facility] Lab data: Recent Results (from the past 24 hour(s)) CBC no Differential Collection Time: 09/05/19 5:59 PM Result Value Ref Range WBC 5.9 4.0 - 11.0 K/uL RBC 3.02 (L) 3.70 - 5.20 M/uL Hemoglobin 8.6 (L) 11.5 - 16.0 g/dL Hematocrit 28.7 (L) 34.0 - 47.0 % MCV 95.0 83.0 - 101.0 fL MCH 28.5 28.0 - 35.0 pg MCHC 30.0 (L) 32.0 - 36.0 g/dL RDW-CV 15.9 (H) <15.0 % RDW-SD 55.2 (H) 35.1 - 46.3 fL Platelet Count 178 140 - 440 K/uL MPV 10.7 6.5 - 12.4 fL % nRBC 0 0 - 2 per 100 WBCs Absolute nRBC 0.00 0.00 - 0.01 K/uL CBC no Differential Collection Time: 09/06/19 12:22 AM Result Value Ref Range WBC 6.7 4.0 - 11.0 K/uL RBC 3.13 (L) 3.70 - 5.20 M/uL Hemoglobin 8.9 (L) 11.5 - 16.0 g/dL Hematocrit 29.4 (L) 34.0 - 47.0 % MCV 93.9 83.0 - 101.0 fL MCH 28.4 28.0 - 35.0 pg MCHC 30.3 (L) 32.0 - 36.0 g/dL RDW-CV 15.9 (H) <15.0 % RDW-SD 55.7 (H) 35.1 - 46.3 fL Platelet Count 157 140 - 440 K/uL MPV 10.2 6.5 - 12.4 fL % nRBC 0 0 - 2 per 100 WBCs Absolute nRBC 0.00 0.00 - 0.01 K/uL CBC no Differential Collection Time: 09/06/19 6:08 AM Result Value Ref Range WBC 8.0 4.0 - 11.0 K/uL RBC 3.40 (L) 3.70 - 5.20 M/uL Hemoglobin 9.9 (L) 11.5 - 16.0 g/dL Hematocrit 32.3 (L) 34.0 - 47.0 % MCV 95.0 83.0 - 101.0 fL MCH 29.1 28.0 - 35.0 pg MCHC 30.7 (L) 32.0 - 36.0 g/dL RDW-CV 15.8 (H) <15.0 % RDW-SD 54.7 (H) 35.1 - 46.3 fL Platelet Count 186 140 - 440 K/uL MPV 10.4 6.5 - 12.4 fL % nRBC 0 0 - 2 per 100 WBCs Absolute nRBC 0.00 0.00 - 0.01 K/uL Extra Green Top Tube Collection Time: 09/06/19 6:08 AM Result Value Ref Range Extra Green Top Tube Done tiller, Wayne Dahl MD - 09/05/2019 10:54 AM PST [facility] Pt. Name/Age/: Ángela Laureano 89 y.o. 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 Pt reportedly having dark stools for a few days CRUISE GUIDE altho she is on supplemental oral iron. The patient was discharged from [facility] about a week prior to this admission after treatment for diverticulitis and melena. She h ad initially been on zosyn and was transitioned to Augmentin upon discharge which she took u ntil 3 days CRUISE GUIDE. During her hospital stay, she underwent EGD which did not reveal any sourc e for her melena. 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 Subsequent to her recurrent abdominal pain, she returned to [facility] presumably with a flare i n her diverticulitis. A CT scan was obtained which revealed progression in bowel wall thick ening which was concerning for persistent diverticular disease vs malignancy. In addition, severe dilatation of intra-hepatic, extra-hepatic and pancreatic ducts was seen. A RUQ ultr asound was performed which confirmed biliary and pancreatic ductal dilatation which appears to have worsened. An MRCP was then performed and reviewed by Dr Stoddard from GI who recommend ed EUS. The pt's son and POA (the pt does seem competent; she is hard of hearing but does n ot, at this time, seem to lack capacity), wished to delay transport pending discussions with pt's physicians at [facility]. Imaging/records from that facility is being reques yoel. Review of reports from [facility], [place], [place], indicate that the pt has had biliary ductal dilatation for at least a year along with the ill-defined pancreatic mass wh ich is, at worst, minimally progressive. Currently the pt is awake, alert and appropriately responsive. She reported some abd disco mfort overnight but this was relieved after a BM following administration of Miralax. This AM she is considerably more comfortable, OOB to chair, in no distress. Pt asked appro priate questions concerning subsequent management and goals. No additional complaints reported at this time. Continuing abx, well tolerated. Past Medical History: Past Medical History: Diagnosis Date Aortic stenosis COPD (chronic obstructive pulmonary disease) (HCC) Coronary artery disease Kidney stone Rheumatic fever Tuberculosis Venereal disease Past Surgical History: Procedure Laterality Date 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 CHOLECYSTECTOMY COLONOSCOPY N/A 06/11/2019 Procedure: COLONOSCOPY-Possible Flex Sig; Surgeon: Edwin Stoddard MD; Location: [facility] HYSTERECTOMY NIRMAL AND BSO TONSILLECTOMY AND ADENOIDECTOMY UPPER GASTROINTESTINAL ENDOSCOPY N/A 06/07/2019 Procedure: EGD; Surgeon: Edwin Stoddard MD; Location: [facility] UPPER GASTROINTESTINAL ENDOSCOPY N/A 08/20/2019 Procedure: EGD; Surgeon: Jhon Grimes MD; Location: [facility] Allergies: Allergies Allergen Reactions Metronidazole GI Upset Flagyl [Metronidazole] Nausea And Vomiting and GI Upset Percocet [Oxycodone] Unknown Pregabalin Unknown Lyrica Sulfa Antibiotics Unknown Current Medications: Current Facility-Administered Medications Medication Dose Route Frequency Provider Last Rate Last Dose acetaminophen (TYLENOL) tablet 650 mg 650 mg Oral Q6H PRN Anna Hastings MD 650 mg a t 09/05/19 0514 adult multivitamin with minerals/iron tablet 1 tablet 1 tablet Oral Daily Anna barber MD 1 tablet at 09/05/19 0903 albuterol 2.5 mg/3 mL nebulizer solution 2.5 mg 2.5 mg Nebulization RT Q4H PRN Anna Hastings MD 2.5 mg at 09/03/19 0225 albuterol-ipratropium 2.5-0.5 mg/3 mL nebulizer solution 3 mL 3 mL Nebulization 4x Millie ly Anna Hastings MD 3 mL at 09/05/19 0726 aspirin chewable tablet 81 mg 81 mg Oral Daily Wayne Munoz MD 81 mg at 9 0904 atorvaSTATin (LIPITOR) tablet 20 mg 20 mg Oral QAM Anna Hastings MD 20 mg at 0902 bisacodyl (DULCOLAX) EC tablet 5 mg 5 mg Oral Daily PRN Anna Hastings MD brimonidine (ALPHAGAN) 0.2% ophthalmic solution 1 drop 1 drop Both Eyes BID Anna powell MD 1 drop at 09/05/19 0910 budesonide (PULMICORT) nebulizer solution 0.5 mg 0.5 mg Nebulization BID Anna Hastings MD 0.5 mg at 09/05/19 0700 calcium carbonate (TUMS) chewable tablet 1,000 mg 1,000 mg Oral Daily Jazz Packer 1,000 mg at 09/05/19 0904 calcium carbonate (TUMS) chewable tablet 1,000 mg 1,000 mg Oral Q4H PRN Anna Hastings MD carvedilol (COREG) tablet 6.25 mg 6.25 mg Oral BID WC Wayne Munoz MD 6.25 mg a t 09/05/19 0903 dicyclomine (BENTYL) capsule 10 mg 10 mg Oral Daily PRN Anna Hastings MD docusate sodium (COLACE) 50 mg/5 mL liquid 250 mg 250 mg Oral QAM Anna Hastings MD 250 mg at 09/04/19 0849 dorzolamide (TRUSOPT) 2% ophthalmic solution 1 drop 1 drop Both Eyes BID Anna Hastings MD 1 drop at 09/05/19 0913 escitalopram (LEXAPRO) tablet 5 mg 5 mg Oral Daily Anna Hastings MD 5 mg at 9 0903 ferrous sulfate tablet 325 mg 325 mg Oral Daily with breakfast Anna Hastings MD 325 mg at 09/05/19 0903 HYDROcodone-acetaminophen (NORCO) 7.5-325 mg per tablet 1 tablet 1 tablet Oral Q8H PRN Anna Hastings MD 1 tablet at 09/04/19 0255 HYDROmorphone (DILAUDID) injection 0.2 mg 0.2 mg Intravenous Q3H PRN Wayne Munoz MD 0.2 mg at 09/03/19 1142 latanoprost (XALATAN) 0.005% ophthalmic solution 1 drop 1 drop Both Eyes Nightly Rebeca Hastings MD 1 drop at 09/03/192034 [START ON 09/06/2019] lisinopril (PRINIVIL, ZESTRIL) tablet 20 mg 20 mg Oral Daily Ann-Marie Munoz MD melatonin tablet 3 mg 3 mg Oral Nightly PRN Anna Hastings MD morphine injection 1-4 mg 1-4 mg Intravenous Q4H PRN Anna Hastings MD nitroglycerin (NITROSTAT) SL tablet 0.4 mg 0.4 mg Sublingual Q5 Min PRN Anna Hastings MD OLANZapine zydis (zyPREXA ZYDIS) disintegrating tablet 5 mg 5 mg Oral Nightly Wayne Munoz MD 5 mg at 09/03/192026 ondansetron (ZOFRAN) injection 4 mg 4 mg Intravenous Q6H PRN Anna Hastings MD oxybutynin (DITROPAN XL) ER tablet 10 mg 10 mg Oral Daily Anna Hastings MD 10 mg at 09/05/19 09 pantoprazole (PROTONIX) injection 80 mg 80 mg Intravenous BID Anna Hastings MD 80 m g at 09/05/19 0904 piperacillin-tazobactam (ZOSYN) 3.375 g in sodium chloride 0.9% 100 mL IVPB 3.375 g In travenous Q8H Anna Hastings MD 25 mL/hr at 09/05/19 0614 3.375 g at 09/05/19 0614 polyethylene glycol (MIRALAX) powder 17 g 17 g Oral Daily PRN Anna Hastings MD 17 g at 09/05/19 0904 polyvinyl alcohol (LIQUITEARS) 1.4% ophthalmic solution 2 drop 2 drop [facility] 2 drop at 09/05/19 0913 predniSONE (DELTASONE) tablet 10 mg 10 mg Oral Daily Anna Hastings MD 10 mg at 1210/24 0904 senna (SENOKOT) tablet 8.6 mg 8.6 mg Oral BID PRN Anna Hastings MD 8.6 mg at 0904 sodium chloride (OCEAN) 0.65% nasal spray 2 spray 2 spray Each Nare Q2H PRN Anna powell MD 2 spray at 09/05/19 0340 Exam: Vital Signs on Arrival: Temp: (!) 39.1 C (102.3 F) BP: 135/49 Pulse: 89 Resp: 18 SpO2: 94 % on Most Recent Vital Signs: Temp: 37 C (98.6 F) BP: 180/88 Pulse: 100 Resp: 20 SpO2: 96 % on Admission Weight: Weight: 56.2 kg (124 lb) BMI: Body mass index is 21.98 kg/m. Physical Examination: General: WD, elderly, quite hard of hearing, OOB to chair, comfortable HEENT: Pupils equal, conjugate gaze Cardiovascular: Regular rate and rhythm; 2/6 systolic/diastolic murmur 2nd (R) ICS Respiratory: Coarse insp crackles both bases, unchanged Abdomen: Softly distended, mild RLQ tenderness, no masses, normal bowel sounds Extremities: No edema, erythema or deformity Neurological: Hard of hearing, otherwise appropriately responsive and grossly nonfocal Code Status: FULL Assessment and Plan: 1. 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 No abscess noted. Now back on pip/tazo for presumed relapse of diverticulitis. Favor at [facility] 10day abx, stop date 09/11. In view of her relapse after conversion to amox/clavulanate , would recommend completion of abx on pip/tazo. Prob should have PICC insertion in anticip ation of dc this coming week. Imaging concerning for severe dilatation of biliary and pancreatic ducts as well as possibl e mass in pancreatic head, but this seems to have been stable for at least a year, followed by frequent imaging studies at [facility]. Given an apparent indolent co urse of the ill-defined pancreatic mass, would at this point favor f/u with physicians from [facility] who are more familiar with pt's case. 2. 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 No me arcadio noted at this time. Will continue on protonix. 3. Elevated troponin, likely demand, hx of CAD--No symptoms of ACS and EKG unremarkable. T roponins now trending down. Aspirin 81mg daily. Continue lipitor. On carvedilol, no c/o c hest pain. BP up, will increase lisinopril to 20mg daily. Pt s/p TAVR; , AI on exam. 4. Chronic hypoxic respiratory failure 2/2 COPD--Not in acute exacerbation at this time. C ontinue home pulmicort, duonebs, chronic prednisone. 5. Dispo: continued acute care of diverticular disease. Pip/tazo to continue. Favor PICC a nd dc to home within next few days. FEN: fat, cholesterol modified. PPx: SCDs Code: FULL, per previous documentation per son's request Electronically signed by: Wayne Munoz MD, 09/05/2019 10:54 AM [facility] Lab data: Recent Results (from the past 24 hour(s)) CBC no Differential Collection Time: 09/04/19 11:53 AM Result Value Ref Range WBC 10.6 4.0 - 11.0 K/uL RBC 3.26 (L) 3.70 - 5.20 M/uL Hemoglobin 9.5 (L) 11.5 - 16.0 g/dL Hematocrit 31.2 (L) 34.0 - 47.0 % MCV 95.7 83.0 - 101.0 fL MCH 29.1 28.0 - 35.0 pg MCHC 30.4 (L) 32.0 - 36.0 g/dL RDW-CV 16.0 (H) <15.0 % RDW-SD 57.1 (H) 35.1 - 46.3 fL Platelet Count 164 140 - 440 K/uL MPV 9.9 6.5 - 12.4 fL % nRBC 0 0 - 2 per 100 WBCs Absolute nRBC 0.00 0.00 - 0.01 K/uL CBC no Differential Collection Time: 09/04/19 9:56 PM Result Value Ref Range WBC 6.8 4.0 - 11.0 K/uL RBC 3.00 (L) 3.70 - 5.20 M/uL Hemoglobin 8.7 (L) 11.5 - 16.0 g/dL Hematocrit 28.6 (L) 34.0 - 47.0 % MCV 95.3 83.0 - 101.0 fL MCH 29.0 28.0 - 35.0 pg MCHC 30.4 (L) 32.0 - 36.0 g/dL RDW-CV 15.9 (H) <15.0 % RDW-SD 56.1 (H) 35.1 - 46.3 fL Platelet Count 176 140 - 440 K/uL MPV 10.5 6.5 - 12.4 fL % nRBC 0 0 - 2 per 100 WBCs Absolute nRBC 0.00 0.00 - 0.01 K/uL POC Blood Gases Collection Time: 09/04/19 11:04 PM Result Value Ref Range Specimen Source Vein pH, POC 7.409 7.3 - 7.45 HCO3, POC 29.8 (H) 21.0 - 28.0 mmol/L TCO2, POC 31.2 (H) 22.0 - 29.0 mmol/L Base Excess, POC 4.5 (H) -2.0 - 3.0 mmol/L Base Excess, Extracellular fluid, POC 5.1 (H) -2.0 - 3.0 mmol/L O2 Sat, POC 90 90 - 100 % PCO2, POC 47.0 (H) 35 - 45 mmHg pO2, POC 60 60 - 750 mmHg Basic Metabolic Panel Collection Time: 09/05/19 5:22 AM Result Value Ref Range Na 145 136 - 145 mmol/L K 4.0 3.4 - 5.1 mmol/L Cl 108 (H) 98 - 107 mmol/L CO2 31 20 - 31 mmol/L Anion Gap 6 3 - 16 mmol/L Glucose 103 60 - 106 mg/dL BUN 13 9 - 23 mg/dL Creatinine 0.72 0.55 - 1.02 mg/dL eGFR if not >60 >=60 mL/min/1.73m2 Calcium 8.5 (L) 8.7 - 10.4 mg/dL BUN/Creatinine Ratio 18.1 Magnesium Collection Time: 09/05/19 5:22 AM Result Value Ref Range Magnesium 2.0 1.6 - 2.6 mg/dL Hepatic Function Panel Collection Time: 09/05/19 5:22 AM Result Value Ref Range Bilirubin Total 0.4 0.3 - 1.2 mg/dL Total Protein 4.9 (L) 5.7 - 8.2 g/dL Albumin 2.9 (L) 3.2 - 4.8 g/dL AST 14 0 - 34 U/L ALT 18 10 - 49 U/L Alkaline Phosphatase 92 46 - 116 U/L Globulin 2.0 (L) 2.1 - 3.8 g/dL Albumin/Globulin Ratio 1.5 0.8 - 1.9 Bilirubin, Direct 0.10 0.00 - 0.30 mg/dl CBC no Differential Collection Time: 09/05/19 5:22 AM Result Value Ref Range WBC 7.0 4.0 - 11.0 K/uL RBC 3.23 (L) 3.70 - 5.20 M/uL Hemoglobin 9.3 (L) 11.5 - 16.0 g/dL Hematocrit 30.3 (L) 34.0 - 47.0 % MCV 93.8 83.0 - 101.0 fL MCH 28.8 28.0 - 35.0 pg MCHC 30.7 (L) 32.0 - 36.0 g/dL RDW-CV 16.0 (H) <15.0 % RDW-SD 55.7 (H) 35.1 - 46.3 fL Platelet Count 183 140 - 440 K/uL MPV 10.6 6.5 - 12.4 fL Immature Platelet Fraction 1.7 0.9 - 11.2 % % nRBC 0 0 - 2 per 100 WBCs Absolute nRBC 0.00 0.00 - 0.01 K/uL tillerWayne MD - 09/04/2019 10:45 AM PST [facility] Pt. Name/Age/: Ángela Laureano 89 y.o. 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 Pt reportedly having dark stools the last couple days altho she is on supplemental oral iron. The patient was discharged from [facility] about a week prior to this admission after treatment for diverticulitis and melena. She had initially been on zosyn and was transitioned to Augmentin upon discharge which she took until 3 days CRUISE GUIDE. During her hospital stay, she underwent EGD which did not reveal any henri rce for her melena. 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 Subsequent to her recurrent abdominal pain, she returned to [facility] presumably with a flare i n her diverticulitis. A CT scan was obtained which revealed progression in bowel wall thick ening which was concerning for persistent diverticular disease vs malignancy. In addition, severe dilatation of intra-hepatic, extra-hepatic and pancreatic ducts was seen. A RUQ ultr asound was performed which confirmed biliary and pancreatic ductal dilatation which appears to have progressed. An MRCP was then performed and reviewed by Dr Stoddard from GI who recomme nded EUS. The pt's son and POA (the pt does seem competent; she is hard of hearing but does not, at this time, seem to lack capacity), wished to delay transport pending discussions wi pt's physicians at [facility]. Imaging/records from that facility is being requ ested. Review of reports from [facility], [place], [place], indicate that the pt has h ad biliary ductal dilatation for at least a year along with the ill-defined pancreatic mass which is, at worst, minimally progressive. Currently the pt is awake, alert and appropriately responsive. She is considerably more co mfortable compared with admission complaints. Pt asked appropriate questions concerning sub sequent management and goals. She does note that she is has not moved her bowels and, per med record, does have chronic c onstipation, occasionally requiring manual disempaction. No additional complains reported at this time. Continuing abx, well tolerated. Son's many questions addressed and answered. Past Medical History: Past Medical History: Diagnosis Date Aortic stenosis COPD (chronic obstructive pulmonary disease) (HCC) Coronary artery disease Kidney stone Rheumatic fever Tuberculosis Venereal disease Past Surgical History: Procedure Laterality Date 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 CHOLECYSTECTOMY COLONOSCOPY N/A 06/11/2019 Procedure: COLONOSCOPY-Possible Flex Sig; Surgeon: Edwin Stoddard MD; Location: [facility] HYSTERECTOMY NIRMAL AND BSO TONSILLECTOMY AND ADENOIDECTOMY UPPER GASTROINTESTINAL ENDOSCOPY N/A 06/07/2019 Procedure: EGD; Surgeon: Edwin Stoddard MD; Location: [facility] UPPER GASTROINTESTINAL ENDOSCOPY N/A 08/20/2019 Procedure: EGD; Surgeon: John Grimes MD; Location: [facility] Allergies: Allergies Allergen Reactions Metronidazole GI Upset Flagyl [Metronidazole] Nausea And Vomiting and GI Upset Percocet [Oxycodone] Unknown Pregabalin Unknown Lyrica Sulfa Antibiotics Unknown Current Medications: Current Facility-Administered Medications Medication Dose Route Frequency Provider Last Rate Last Dose acetaminophen (TYLENOL) tablet 650 mg 650 mg Oral Q6H PRN Anna Hastings MD adult multivitamin with minerals/iron tablet 1 tablet 1 tablet Oral Daily Anna barber MD 1 tablet at 09/04/19 0851 albuterol 2.5 mg/3 mL nebulizer solution 2.5 mg 2.5 mg Nebulization RT Q4H PRN Anna Hastings MD 2.5 mg at 09/03/19 0225 albuterol-ipratropium 2.5-0.5 mg/3 mL nebulizer solution 3 mL 3 mL Nebulization 4x Millie ly Anna Hastings MD 3 mL at 09/04/19 0739 aspirin chewable tablet 81 mg 81 mg Oral Daily Wayne Munoz MD 81 mg at 9 0849 atorvaSTATin (LIPITOR) tablet 20 mg 20 mg Oral JOHN Hastings MD 20 mg at 0851 bisacodyl (DULCOLAX) EC tablet 5 mg 5 mg Oral Daily PRN Anna Hastings MD brimonidine (ALPHAGAN) 0.2% ophthalmic solution 1 drop 1 drop Both Eyes BID Anna powell MD 1 drop at 09/04/19 0900 budesonide (PULMICORT) nebulizer solution 0.5 mg 0.5 mg Nebulization BID Anna Hastings MD 0.5 mg at 09/04/19 0740 calcium carbonate (TUMS) chewable tablet 1,000 mg 1,000 mg Oral Daily aJzz Packer 1,000 mg at 09/04/19 0850 calcium carbonate (TUMS) chewable tablet 1,000 mg 1,000 mg Oral Q4H PRN Anna Hastings MD carvedilol (COREG) tablet 6.25 mg 6.25 mg Oral BID Wayen Munoz MD dicyclomine (BENTYL) capsule 10 mg 10 mg Oral Daily PRN Anna Hastings MD docusate sodium (COLACE) 50 mg/5 mL liquid 250 mg 250 mg Oral JOHN Hastings MD 250 mg at 09/04/19 0849 dorzolamide (TRUSOPT) 2% ophthalmic solution 1 drop 1 drop Both Eyes BID Anna Hastings MD 1 drop at 09/04/19 0900 escitalopram (LEXAPRO) tablet 5 mg 5 mg Oral Daily Anna Hastings MD 5 mg at 9 0851 ferrous sulfate tablet 325 mg 325 mg Oral Daily with breakfast Anna Hastings MD 325 mg at 09/04/19 0851 HYDROcodone-acetaminophen (NORCO) 7.5-325 mg per tablet 1 tablet 1 tablet Oral Q8H PRN Anna Hastings MD 1 tablet at 09/04/19 0255 HYDROmorphone (DILAUDID) injection 0.2 mg 0.2 mg Intravenous Q3H PRN Wayne Munoz MD 0.2 mg at 09/03/19 1142 latanoprost (XALATAN) 0.005% ophthalmic solution 1 drop 1 drop Both Eyes Nightly Rebeca Hastings MD 1 drop at 09/03/192034 lisinopril (PRINIVIL, ZESTRIL) tablet 5 mg 5 mg Oral Daily Wayne Munoz MD melatonin tablet 3 mg 3 mg Oral Nightly PRN Anna Hastings MD morphine injection 1-4 mg 1-4 mg Intravenous Q4H PRN Anna Hastings MD nitroglycerin (NITROSTAT) SL tablet 0.4 mg 0.4 mg Sublingual Q5 Min PRN Anna Hastings MD OLANZapine zydis (zyPREXA ZYDIS) disintegrating tablet 5 mg 5 mg Oral Nightly Wayne Munoz MD 5 mg at 09/03/19 202 ondansetron (ZOFRAN) injection 4 mg 4 mg Intravenous Q6H PRN Anna Hastings MD oxybutynin (DITROPAN XL) ER tablet 10 mg 10 mg Oral Daily Anna Hastings MD 10 mg at 09/04/19 0851 pantoprazole (PROTONIX) injection 80 mg 80 mg Intravenous BID Anna Hastings MD 80 m g at 09/04/19 0854 piperacillin-tazobactam (ZOSYN) 3.375 g in sodium chloride 0.9% 100 mL IVPB 3.375 g In travenous Q8H Anna Hastings MD 25 mL/hr at 09/04/19 0621 3.375 g at 09/04/19 0621 polyethylene glycol (MIRALAX) powder 17 g 17 g Oral Daily PRN Anna Hastings MD polyvinyl alcohol (LIQUITEARS) 1.4% ophthalmic solution 2 drop 2 drop Both Eyes QAM Heidi ara Hastings MD 2 drop at 09/04/19 0900 predniSONE (DELTASONE) tablet 10 mg 10 mg Oral Daily Anna Hastings MD 10 mg at 08/08 0851 senna (SENOKOT) tablet 8.6 mg 8.6 mg Oral BID PRN Anna Hastings MD sodium chloride (OCEAN) 0.65% nasal spray 2 spray 2 spray Each Nare Q2H PRN Anna powell MD 2 spray at 09/04/19 0255 Exam: Vital Signs on Arrival: Temp: (!) 39.1 C (102.3 F) BP: 135/49 Pulse: 89 Resp: 18 SpO2: 94 % on Most Recent Vital Signs: Temp: 36.7 C (98.1 F) BP: 179/80 Pulse: 88 Resp: 18 SpO2: 95 % on Admission Weight: Weight: 56.2 kg (124 lb) BMI: Body mass index is 21.94 kg/m. Physical Examination: General: WD, elderly, quite hard of hearing, no distress at this time HEENT: Pupils equal, conjugate gaze,no icerus Cardiovascular: Regular rate and rhythm; 2/6 systolic/diastolic murmur 2nd (R) ICS Respiratory: Coarse insp crackles both bases, (L) > (R), otherwise clear Abdomen: Softly distended, mild RLQ tenderness, no masses, normal bowel sounds Extremities: Trace LE edema b/l, no erythema or deformity Neurological: Hard of hearing, otherwise appropriately responsive and grossly nonfocal Code Status: FULL Assessment and Plan: 1. 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 No abscess noted. Now back on pip/tazo for presumed relapse of diverticulitis. Imaging concerning for severe dilatation of biliary and pancreatic ducts as well as possibl e mass in pancreatic head, but again, this seems to have been fairly stable for at least a y ear, followed by frequent imaging studies at OSH. Given an apparent indolent course of the ill-defined pancreatic mass, would at this point favor f/u with physicians from [facility] in [place], [place] who are more familiar with pt's case. 2. 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 No me arcadio noted at this time. Will continue on protonix. 3. Elevated troponin, likely demand, hx of CAD--No symptoms of ACS and EKG unremarkable. T roponins now trending down. Aspirin 81mg daily. Continue lipitor. On carvedilol with adeq uate hemodynamics, no c/o chest pain. Pt s/p TAVR; , AI on exam. 4. Chronic hypoxic respiratory failure 2/2 COPD--Not in acute exacerbation at this time. W ill continue home pulmicort, duonebs, chronic prednisone. 5. Dispo: continued acute care of diverticular disease. Pip/tazo to continue FEN: clear liquid PPx: SCDs Code: FULL, per previous documentation per son's request Electronically signed by: Wayne Munoz MD, 09/04/2019 10:45 AM [facility] Lab data: Recent Results (from the past 24 hour(s)) Echo Limited Collection Time: 09/03/19 10:51 AM Result Value Ref Range Patient Weight (lbs) 123 lbs Patient Height 65 in LVIDd 4.29 cm FS 30 % AV mean gradient 16.2 mmHg Aortic Valve Area by Continuity VTI 1.55 cm2 LVOT diameter 2.2 cm LVOT peak magalie 108.91 cm/s LVOT peak VTI 24.05 cm AV peak magalie 275.41 cm/s AV VTI 59.12 cm MR max magalie 509.41 cm/s AV peak gradient 30.34 mmHg AV LVOT Peak Gradient 4.74 mmHg AV LVOT Mean Gradient 2.18 mmHg TR Peak Gradient 44 mmHg TR Velocity 333.53 cm LV Diastolic Length 4C 8.06 cm LV Schulz's Biplane EF 66 % LV ED Volume (Schulz's) 76.52 ml LV ED Volume Index 48 ml/m2 LV ES Volume 26.25 ml LVOT Mean Velocity 66.84 cm/s AV Deceleration Burleson 317.3 cm/s2 AV Mean Velocity 187.76 cm/s LA Major 0.5912 cm LV ES Volume Index 16 ml/m2 IVS Diastolic Thickness MM 0.95 cm LVPW Diastolic Thickness MM 1.04 cm IVS Systolic Thickness MM 1.46 cm LV Systolic Diameter MM 3.02 cm LVPW Systolic Thickness MM 1.35 cm CBC no Differential Collection Time: 09/03/19 2:07 PM Result Value Ref Range WBC 10.4 4.0 - 11.0 K/uL RBC 3.13 (L) 3.70 - 5.20 M/uL Hemoglobin 9.1 (L) 11.5 - 16.0 g/dL Hematocrit 30.1 (L) 34.0 - 47.0 % MCV 96.2 83.0 - 101.0 fL MCH 29.1 28.0 - 35.0 pg MCHC 30.2 (L) 32.0 - 36.0 g/dL RDW-CV 16.0 (H) <15.0 % RDW-SD 57.2 (H) 35.1 - 46.3 fL Platelet Count 147 140 - 440 K/uL MPV 10.2 6.5 - 12.4 fL % nRBC 0 0 - 2 per 100 WBCs Absolute nRBC 0.00 0.00 - 0.01 K/uL CBC no Differential Collection Time: 09/03/19 6:04 PM Result Value Ref Range WBC 8.9 4.0 - 11.0 K/uL RBC 3.09 (L) 3.70 - 5.20 M/uL Hemoglobin 8.9 (L) 11.5 - 16.0 g/dL Hematocrit 29.4 (L) 34.0 - 47.0 % MCV 95.1 83.0 - 101.0 fL MCH 28.8 28.0 - 35.0 pg MCHC 30.3 (L) 32.0 - 36.0 g/dL RDW-CV 16.1 (H) <15.0 % RDW-SD 56.6 (H) 35.1 - 46.3 fL Platelet Count 152 140 - 440 K/uL MPV 10.3 6.5 - 12.4 fL % nRBC 0 0 - 2 per 100 WBCs Absolute nRBC 0.00 0.00 - 0.01 K/uL CBC no Differential Collection Time: 09/04/19 12:08 AM Result Value Ref Range WBC 7.0 4.0 - 11.0 K/uL RBC 2.78 (L) 3.70 - 5.20 M/uL Hemoglobin 8.0 (L) 11.5 - 16.0 g/dL Hematocrit 26.4 (L) 34.0 - 47.0 % MCV 95.0 83.0 - 101.0 fL MCH 28.8 28.0 - 35.0 pg MCHC 30.3 (L) 32.0 - 36.0 g/dL RDW-CV 16.2 (H) <15.0 % RDW-SD 56.8 (H) 35.1 - 46.3 fL Platelet Count 148 140 - 440 K/uL MPV 10.3 6.5 - 12.4 fL % nRBC 0 0 - 2 per 100 WBCs Absolute nRBC 0.00 0.00 - 0.01 K/uL CBC no Differential Collection Time: 09/04/19 5:56 AM Result Value Ref Range WBC 6.6 4.0 - 11.0 K/uL RBC 2.93 (L) 3.70 - 5.20 M/uL Hemoglobin 8.5 (L) 11.5 - 16.0 g/dL Hematocrit 28.2 (L) 34.0 - 47.0 % MCV 96.2 83.0 - 101.0 fL MCH 29.0 28.0 - 35.0 pg MCHC 30.1 (L) 32.0 - 36.0 g/dL RDW-CV 16.2 (H) <15.0 % RDW-SD 57.8 (H) 35.1 - 46.3 fL Platelet Count 148 140 - 440 K/uL MPV 10.4 6.5 - 12.4 fL % nRBC 0 0 - 2 per 100 WBCs Absolute nRBC 0.00 0.00 - 0.01 K/uL Extra Green Top Tube Collection Time: 09/04/19 6:04 AM Result Value Ref Range Extra Green Top Tube Done olph, Raymon Obrien, [facility] - 09/03/2019 4:27 PM PST PHARMACY SERVICES: ADMISSION MEDICATION REVIEW Ángela Laureano is a 89 y.o. female admitted on 09/01/2019. Patient is not a reliable historian. Location of Patient when reviewed: MEDICAL FLOOR Patient s prior to admit medication and over the counter (OTC) medications/herbal supplem ents list obtained from: John Doctor's office: Dr. Sunny Lopez Pharmacy list names: [facility] State Prescription Monitoring Program ([place]) X [employer] insurance reported information X Other sources: Verbal interview with son, Yadiel, who manages medications Vaccines up to date? Influenza No Pneumococcal Yes Tdap Yes Shingles Unsure Noted medications discrepancies or medication-related issues: Dosage/Form/Frequency change: CRUISE GUIDE Medication: Prior to Admission Sig: Correct Sig: Bisacodyl 5 mg EC tab 1 tab by mouth daily as needed for constipation 1 tab by mouth daily Medication added: Medication: Prior to Admission Sig: Bacitracin oint 1 application topically twice daily to bedsore on buttocks Son states treating bed sore since last hospital discharge on 08/26/19 Removed therapy: Medication: Prior to Admission Sig: Reason for Removal: Sodium chloride 0.65% nasal spray 2 sprays in each nare every 2 hours as needed for nasal d ryness Therapy complete Patient denies use of recreational substances, tobacco or alcohol. Other: Medication: Prior to Admission Sig: Patient taking differently CRUISE GUIDE as: Budesonide 0.5 mg/2 mL neb marcelino 2 mL by nebulization twice daily 2 mL by nebulization four t imes daily Son states he has been mixing this with patient's albuterol solution (the only other solu tion she's filled is Duoneb) and giving 4 times daily as ordered by her Support Manager. No do cumentation found to support this statement. Dicyclomine 10 mg cap 1 cap by mouth daily as needed for GI upset 1 cap by mouth five time s in one day CRUISE GUIDE. Patient suffering from severe GI upset Estradiol 0.1 mg/g vag cream 1 gm to vagina daily for 2 weeks then 1 gm once weekly thereaf ter Son states patient started therapy ~2 weeks ago but has missed ~4 doses. She has not yet started once weekly dosing. He is concerned about patient not completing 2 week course prio r to starting once weekly dose. Ferrous sulfate 325 mg tab 1 tab by mouth daily Not taking Not taken since last hospital admission. [facility] hospitalist told him he wanted patien t to start IV iron infusions instead Hydrocodone-acetaminophen 7.5-325 mg tab 1 tab by mouth every 8 hours as needed for pain 1 tab by mouth every 6 hours for ~1 week prior to arrival Prednisone 10 mg tab 40 mg by mouth daily for 5 days for COPD exacerbation then resume 10 m g daily 40 mg by mouth daily for 5 days for COPD exacerbation then taper down by 10 mg ever y 5 days [facility] patient started 40 mg daily ~1 week ago. On day of admission patient was on ird day of 30 mg daily Best possible CRUISE GUIDE medication list after pharmacy review: PT REPORTED [...] a s needed for Wheezing. Taking Historical ProviderMD albuterol-ipratropium 2.5-0.5 mg/3 mL SOLN Take 3 mLs by nebulization 4 times daily for 90 days. Taking 1,080 mL Lina Jan Correa MD aspirin 81 mg chewable tablet Take 1 tablet by mouth Daily. Taking 30 tablet Candido Link MD atorvaSTATin (LIPITOR) 20 mg tablet Take 1 tablet by mouth every morning. Taking 90 tablet Candido Link MD bacitracin 500 UNIT/GM ointment Apply 1 Application topically 2 times daily. To bedsore on buttocks Taking Historical ProviderMD bisacodyl (DULCOLAX) 5 mg EC tablet Take 5 mg by mouth Daily. Taking [facility] brimonidine (ALPHAGAN) 0.2% ophthalmic solution Place 1 drop into both eyes 2 times daily. Taking Anup Donohue MD budesonide (PULMICORT) 0.5 mg/2 mL nebulizer solution Take 2 mLs by nebulization 2 times d aily. Dx Code J44.90 Patient taking differently: Take 0.5 mg by nebulization 4 times daily. Dx Code J44.90 Taking Differently 180 mL Candido Link MD calcium carbonate (TUMS EX) 750 MG chewable tablet Take 2 tablets by mouth Daily as needed for Heartburn. Taking Alfredo Arciniega MD CALCIUM CARBONATE PO Take 1,000 mg by mouth Daily. Taking Alfredo Arciniega MD carvedilol (COREG) 6.25 mg tablet Take 6.25 mg by mouth 2 times daily (with breakfast & di nner). Taking [facility] cetirizine (ZYRTEC) 10 mg tablet Take 1 tablet by mouth Daily. Taking 30 tablet Isabelle Link MD Cholecalciferol (VITAMIN D PO) Take 600 Units by mouth every morning. Taking Alfredo garcía MD CRANBERRY CONCENTRATE PO Take 15,000 mg by mouth Daily. Taking Sharon Robles MD dicyclomine (BENTYL) 10 mg capsule Take 1 capsule by mouth Daily as needed for GI Upset. P atient taking differently: Take 10 mg by mouth 5 times daily. For 1 day prior to arrival Blane Ames 240 capsule Candido Link MD docusate sodium (COLACE) 250 MG capsule Take 250 mg by mouth every morning. Hold for loose stools Taking Alfredo Arciniega MD dorzolamide (TRUSOPT) 2% ophthalmic solution Place 1 drop into both eyes 2 times daily. Blane Donohue MD escitalopram (LEXAPRO) 5 MG tablet Take 1 tablet by mouth Daily. Taking 30 tablet Haley Link MD estradiol (ESTRACE VAGINAL) 0.1 mg/g vaginal cream Apply 1 gm to vagina daily x 2 weeks th en 1gm once weekly Taking 42.5 g Jag Anthony MD famotidine (PEPCID) 40 MG tablet Take 1 tablet by mouth nightly. Taking 90 tablet Haley Link MD ferrous sulfate 325 mg tablet Take 1 tablet by mouth daily (with breakfast). Patient not t aking: Reported on 09/03/2019 Not Taking 90 tablet Candido Link MD fluticasone (FLONASE) 50 mcg/nasal spray 1 spray by Nasal route Daily as needed for Allerg ies. Taking Alfredo Arciniega MD furosemide (LASIX) 20 mg tablet Take 1 tablet by mouth Daily. Taking 90 tablet Funmilayo Link MD HYDROcodone-acetaminophen (NORCO) 7.5-325 mg per tablet Take 1 tablet by mouth every 8 samantha rs as needed for Pain. Patient taking differently: Take 1 tablet by mouth every 6 hours as needed for Pain. Taking Differently 100 tablet Lorena Crystal MD latanoprost (XALATAN) 0.005% ophthalmic solution Place 1 drop into both eyes nightly. Jami Donohue MD metoprolol succinate (TOPROL-XL) 25 mg 24 hr tablet Take 1 tablet by mouth nightly. Taking 90 tablet Candido Link MD Multiple Vitamins-Minerals (PRESERVISION AREDS 2) CAPS Take 1 capsule by mouth 2 times millie ly. Taking [facility] nitroglycerin (NITROSTAT) 0.[address] 0.4 mg under the tongue every 5 minutes a s needed for Chest pain. Taking Alfredo Arciniega MD ondansetron (ZOFRAN ODT) 4 mg disintegrating tablet Take 1 tablet by mouth every 8 hours a s needed for Nausea. Taking 90 tablet Candido Link MD oxybutynin (DITROPAN-XL) 10 MG 24 hr tablet Take 1 tablet by mouth Daily. Taking 30 tablet Jag Anthony MD oxygen Inhale 3 L into the [...] MD predniSONE (DELTASONE) 10 mg tablet Take 40 mg by mouth Daily. For 5 days for COPD exacerb ation, then resume 10 mg daily. Taking Differently Alfredo Arciniega MD predniSONE (DELTASONE) 10 mg tablet Take 10 mg by mouth Daily. Not Taking Historical Prov MD jose Respiratory Therapy Supplies MISC Replacement O2 mask. Please evaluate and provide an O2 m ask that is more useful to the patient. Duration: Lifetime Dx: COPD, severe J44.9 1 each Ki m Jan Correa MD UNABLE TO FIND Adult Pull ups, medium size 100 each Candido Link MD Medication review performed and electronically signed by Ly Guido, [employer] 3:49 PM Electronically signed by: Raymon Patel [facility] 09/03/2019 4:27 PM Wayne Edmonds MD - 09/03/2019 2:47 PM PST [facility] PRO[facility]ESS [facility] Pt. Name/Age/: Ángela Laureano 89 y.o. 1930 Date of admission: 09/01/2019 Chief Complaint/Reason for Visit: Abdominal pain, nausea, fever History of Present Illness: 89yoF w/ hx of s/p TAVR w/ mild to mod AI, CAD, COPD on chronic 3L NC, chronic blood los s from presumed AVMs, who p/w lower abdominal pain, nausea, and fever at home. Per son's re port, pt was having dark stools the last couple days. The patient was discharged from here a bout a week ago after treatment for diverticulitis and melena. She had initially been on zo syn and was transitioned to Augmentin upon discharge. This abx course apparently ended on 3 days CRUISE GUIDE. During her hospital stay, she underwent EGD which did not reveal any source for her melena. 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 She returned to [facility] presumably with a flare in her diverticular disease. A CT scan was o btained which revealed progression in bowel wall which was concerning for wither persistent diverticular disease vs malignancy. In addition, severe dilatation of intra-hepatic, extra- hepatic and pancreatic ducts was seen. A RUQ ultrasound was performed which confirmed bilia ry and pancreatic ductal dilatation which has progressed. An MRCP was performed and reviewe d by Dr Stoddard from GI who recommended transfer to [facility] for EUS. The pt's son, claiming POA despite the pt's competence (she is hard of hearing but does not seem to lack capacity at th is time), wished to delay transport pending discussions with pt's physicians at [facility]. Imaging from that facility is being requested. Currently the pt is awake, alert and appropriately responsive. She is considerably more co mfortable today compared with yesterday's evaluation. She indicates that she is agreeable t o proceeding with Bx to determine if there is a pancreatic malignancy responsible for findin gs. Continuing abx, well tolerated. Son's many questions addressed and answered. Past Medical History: Past Medical History: Diagnosis Date Aortic stenosis COPD (chronic obstructive pulmonary disease) (HCC) Coronary artery disease Kidney stone Rheumatic fever Tuberculosis Venereal disease Past Surgical History: Procedure Laterality Date 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 CHOLECYSTECTOMY COLONOSCOPY N/A 06/11/2019 Procedure: COLONOSCOPY-Possible Flex Sig; Surgeon: Edwin Stoddard MD; Location: [facility] PROCEDURE UNIT HYSTERECTOMY NIRMAL AND BSO TONSILLECTOMY AND ADENOIDECTOMY UPPER GASTROINTESTINAL ENDOSCOPY N/A 06/07/2019 Procedure: EGD; Surgeon: Edwin Stoddard MD; Location: [facility] MEDICAL PROCEDURE UNIT UPPER GASTROINTESTINAL ENDOSCOPY N/A 08/20/2019 Procedure: EGD; Surgeon: John Grimes MD; Location: [facility] MEDICAL PROCEDURE UNIT Allergies: Allergies Allergen Reactions Metronidazole GI Upset Flagyl [Metronidazole] Nausea And Vomiting and GI Upset Percocet [Oxycodone] Unknown Pregabalin Unknown Lyrica Sulfa Antibiotics Unknown Current Medications: Current Facility-Administered Medications Medication Dose Route Frequency Provider Last Rate Last Dose acetaminophen (TYLENOL) tablet 650 mg 650 mg Oral Q6H PRN Anna Hastings MD adult multivitamin with minerals/iron tablet 1 tablet 1 tablet Oral Daily Anna barber MD 1 tablet at 09/03/19 0936 albuterol 2.5 mg/3 mL nebulizer solution 2.5 mg 2.5 mg Nebulization RT Q4H PRN Anna Hastings MD 2.5 mg at 09/03/19 0225 albuterol-ipratropium 2.5-0.5 mg/3 mL nebulizer solution 3 mL 3 mL Nebulization 4x Millie ly Anna Hastings MD 3 mL at 09/03/19 1127 aspirin chewable tablet 81 mg 81 mg Oral Daily Wayne Munoz MD 81 mg at 9 09 atorvaSTATin (LIPITOR) tablet 20 mg 20 mg Oral JOHN Hastings MD 20 mg at 0922 bisacodyl (DULCOLAX) EC tablet 5 mg 5 mg Oral Daily PRN Anna Hastings MD brimonidine (ALPHAGAN) 0.2% ophthalmic solution 1 drop 1 drop Both Eyes BID Anna powell MD 1 drop at 09/03/19 0926 budesonide (PULMICORT) nebulizer solution 0.5 mg 0.5 mg Nebulization BID Anna Hastings MD 0.5 mg at 09/03/19 0747 calcium carbonate (TUMS) chewable tablet 1,000 mg 1,000 mg Oral Daily Jazz Packer D 1,000 mg at 09/03/19 0923 calcium carbonate (TUMS) chewable tablet 1,000 mg 1,000 mg Oral Q4H PRN Anna Hastings MD carvedilol (COREG) tablet 3.125 mg 3.125 mg Oral BID Wayne Munoz MD 3.125 m g at 09/03/19 0921 dicyclomine (BENTYL) capsule 10 mg 10 mg Oral Daily PRN Anna Hastings MD docusate sodium (COLACE) 50 mg/5 mL liquid 250 mg 250 mg Oral JOHN Hastings MD 250 mg at 09/03/19 0925 dorzolamide (TRUSOPT) 2% ophthalmic solution 1 drop 1 drop Both Eyes BID Anna Hastings MD 1 drop at 09/03/19 0927 escitalopram (LEXAPRO) tablet 5 mg 5 mg Oral Daily Anna Hastings MD 5 mg at 9 0922 ferrous sulfate tablet 325 mg 325 mg Oral Daily with breakfast Anna Hastings MD 325 mg at 09/03/19 0921 HYDROcodone-acetaminophen (NORCO) 7.5-325 mg per tablet 1 tablet 1 tablet Oral Q8H PRN Anna Hastings MD 1 tablet at 09/03/19 1427 HYDROmorphone (DILAUDID) injection 0.2 mg 0.2 mg Intravenous Q3H PRN Wayne Munoz MD 0.2 mg at 09/03/19 1142 latanoprost (XALATAN) 0.005% ophthalmic solution 1 drop 1 drop Both Eyes Nightly Rebeca Hastings MD 1 drop at 09/02/19 2209 melatonin tablet 3 mg 3 mg Oral Nightly PRN Anna Hastings MD morphine injection 1-4 mg 1-4 mg Intravenous Q4H PRN Anna Hastings MD nitroglycerin (NITROSTAT) SL tablet 0.4 mg 0.4 mg Sublingual Q5 Min PRN Anna Hastings MD OLANZapine zydis (zyPREXA ZYDIS) disintegrating tablet 5 mg 5 mg Oral Nightly Wayne Munoz MD 5 mg at 09/02/19 215 ondansetron (ZOFRAN) injection 4 mg 4 mg Intravenous Q6H PRN Anna Hastings MD oxybutynin (DITROPAN XL) ER tablet 10 mg 10 mg Oral Daily Anna Hastings MD 10 mg at 09/03/19 0922 pantoprazole (PROTONIX) injection 80 mg 80 mg Intravenous BID Anna Hastings MD 80 m g at 09/03/19 0923 piperacillin-tazobactam (ZOSYN) 3.375 g in sodium chloride 0.9% 100 mL IVPB 3.375 g In travenous Q8H Anna Hastings MD 25 mL/hr at 09/03/19 1422 3.375 g at 09/03/19 1422 polyethylene glycol (MIRALAX) powder 17 g 17 g Oral Daily PRN Anna Hastings MD polyvinyl alcohol (LIQUITEARS) 1.4% ophthalmic solution 2 drop 2 drop Both Eyes QAM Heidi Hastings MD 2 drop at 09/03/19 0000 predniSONE (DELTASONE) tablet 10 mg 10 mg Oral Daily Anna Hastings MD 10 mg at 08/07 06/24 0922 senna (SENOKOT) tablet 8.6 mg 8.6 mg Oral BID PRN Anna Hastings MD sodium chloride (OCEAN) 0.65% nasal spray 2 spray 2 spray Each Nare Q2H PRN Anna powell MD Exam: Vital Signs on Arrival: Temp: (!) 39.1 C (102.3 F) BP: 135/49 Pulse: 89 Resp: 18 SpO2: 94 % on Most Recent Vital Signs: Temp: 36.4 C (97.5 F) BP: 117/61 Pulse: 80 Resp: 18 SpO2: 95 % on Admission Weight: Weight: 56.2 kg (124 lb) BMI: Body mass index is 20.51 kg/m. Physical Examination: General: WD, elderly, quite hard of hearing, no distress at this time HEENT: Pupils equal, conjugate gaze,no icerus Cardiovascular: Regular rate and rhythm; 2/6 PARVEZ Respiratory: Clear in ant-lat lung martinez Abdomen: Softly distended, no masses Extremities: Trace LE edema b/l, no erythema or deformity Neurological: Hard of hearing, otherwise appropriately responsive and grossly nonfocal Code Status: FULL Assessment and Plan: 1. Acute diverticulitis--CT showing persistent/slightly increased wall thickening of the re ctosigmoid junction w/ underlying diverticular disease c/w diverticulitis, possible malignan cy. No abscess noted. Now back of pip/tazo for presumed relapse of diverticular disease. Imaging concerning for severe dilatation of biliary and pancreatic ducts as well as possibl e mass in pancreatic head. Per recommendation of GI, proceed with EUS. Son wishes discussi on with pt's physicians from [facility] in [place], [place] prior to transfer. 2. 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 No me arcadio noted at this time. Will continue on protonix. 3. Elevated troponin, likely demand, hx of CAD--No symptoms of ACS and EKG unremarkable. T roponins now trending down. Aspirin 81mg daily. Continue lipitor. On carvedilol with adeq uate hemodynamics, no c/o chest pain. 4. Chronic hypoxic respiratory failure 2/2 COPD--Not in acute exacerbation at this time. W ill continue home pulmicort, duonebs, chronic prednisone. 5. Dispo: continued acute care of diverticular disease. Attempting to satisfy son's reques t for imaging from OSH. FEN: clear liquid PPx: SCDs Code: FULL, per previous documentation Dispo: Inpatient, as will likely require >2MN hospital stay. Electronically signed by: Wayne Munoz MD, 09/03/2019 2:47 PM [facility] Lab data: Recent Results (from the past 24 hour(s)) CBC no Differential Collection Time: 09/02/19 6:05 PM Result Value Ref Range WBC 14.2 (H) 4.0 - 11.0 K/uL RBC 3.13 (L) 3.70 - 5.20 M/uL Hemoglobin 9.0 (L) 11.5 - 16.0 g/dL Hematocrit 29.4 (L) 34.0 - 47.0 % MCV 93.9 83.0 - 101.0 fL MCH 28.8 28.0 - 35.0 pg MCHC 30.6 (L) 32.0 - 36.0 g/dL RDW-CV 16.3 (H) <15.0 % RDW-SD 55.7 (H) 35.1 - 46.3 fL Platelet Count 151 140 - 440 K/uL MPV 10.7 6.5 - 12.4 fL Immature Platelet Fraction 1.5 0.9 - 11.2 % % nRBC 0 0 - 2 per 100 WBCs Absolute nRBC 0.00 0.00 - 0.01 K/uL CBC no Differential Collection Time: 09/03/19 12:08 AM Result Value Ref Range WBC 11.1 (H) 4.0 - 11.0 K/uL RBC 2.90 (L) 3.70 - 5.20 M/uL Hemoglobin 8.4 (L) 11.5 - 16.0 g/dL Hematocrit 27.8 (L) 34.0 - 47.0 % MCV 95.9 83.0 - 101.0 fL MCH 29.0 28.0 - 35.0 pg MCHC 30.2 (L) 32.0 - 36.0 g/dL RDW-CV 16.2 (H) <15.0 % RDW-SD 57.7 (H) 35.1 - 46.3 fL Platelet Count 149 140 - 440 K/uL MPV 10.4 6.5 - 12.4 fL % nRBC 0 0 - 2 per 100 WBCs Absolute nRBC 0.00 0.00 - 0.01 K/uL CBC no Differential Collection Time: 09/03/19 6:05 AM Result Value Ref Range WBC 11.1 (H) 4.0 - 11.0 K/uL RBC 3.29 (L) 3.70 - 5.20 M/uL Hemoglobin 9.6 (L) 11.5 - 16.0 g/dL Hematocrit 31.6 (L) 34.0 - 47.0 % MCV 96.0 83.0 - 101.0 fL MCH 29.2 28.0 - 35.0 pg MCHC 30.4 (L) 32.0 - 36.0 g/dL RDW-CV 16.3 (H) <15.0 % RDW-SD 58.3 (H) 35.1 - 46.3 fL Platelet Count 149 140 - 440 K/uL MPV 10.3 6.5 - 12.4 fL % nRBC 0 0 - 2 per 100 WBCs Absolute nRBC 0.00 0.00 - 0.01 K/uL Extra Green Top Tube Collection Time: 09/03/19 6:05 AM Result Value Ref Range Extra Green Top Tube Done Echo Limited Collection Time: 09/03/19 10:51 AM Result Value Ref Range Patient Weight (lbs) 123 lbs Patient Height 65 in LVIDd 4.29 cm FS 30 % AV mean gradient 16.2 mmHg Aortic Valve Area by Continuity VTI 1.55 cm2 LVOT diameter 2.2 cm LVOT peak magalie 108.91 cm/s LVOT peak VTI 24.05 cm AV peak magalie 275.41 cm/s AV VTI 59.12 cm MR max magalie 509.41 cm/s AV peak gradient 30.34 mmHg AV LVOT Peak Gradient 4.74 mmHg AV LVOT Mean Gradient 2.18 mmHg TR Peak Gradient 44 mmHg TR Velocity 333.53 cm LV Diastolic Length 4C 8.06 cm LV Schulz's Biplane EF 66 % LV ED Volume (Schulz's) 76.52 ml LV ED Volume Index 48 ml/m2 LV ES Volume 26.25 ml LVOT Mean Velocity 66.84 cm/s AV Deceleration [place] 317.3 cm/s2 AV Mean Velocity 187.76 cm/s LA Major 0.5912 cm LV ES Volume Index 16 ml/m2 IVS Diastolic Thickness MM 0.95 cm LVPW Diastolic Thickness MM 1.04 cm IVS Systolic Thickness MM 1.46 cm LV Systolic Diameter MM 3.02 cm LVPW Systolic Thickness MM 1.35 cm CBC no Differential Collection Time: 09/03/19 2:07 PM Result Value Ref Range WBC 10.4 4.0 - 11.0 K/uL RBC 3.13 (L) 3.70 - 5.20 M/uL Hemoglobin 9.1 (L) 11.5 - 16.0 g/dL Hematocrit 30.1 (L) 34.0 - 47.0 % MCV 96.2 83.0 - 101.0 fL MCH 29.1 28.0 - 35.0 pg MCHC 30.2 (L) 32.0 - 36.0 g/dL RDW-CV 16.0 (H) <15.0 % RDW-SD 57.2 (H) 35.1 - 46.3 fL Platelet Count 147 140 - 440 K/uL MPV 10.2 6.5 - 12.4 fL % nRBC 0 0 - 2 per 100 WBCs Absolute nRBC 0.00 0.00 - 0.01 K/uL ADDEND: Pt seen in f/u to Dr Hastings, case discussed in detail with son and bedside nurse. Pt is 89yo with multiple co-morbidities with recent hx of diverticulitis, having completed a course of abx. She presents now with recurrence of severe crampy abd pain and what son de scribes as black stool altho the pt is on PO Fe supplement. As part of her ED evaluation, a CT A/P was performed which showed bowel wall thickening in the region of the recto-sigmoid junction consistent with diverticulitis. She was was admitted for further management and t reatment. Currently the pt is in signif pain; she is refusing PO analgesics, likely seconda ry to delirium. She repeatedly states "I don't want to go home". She otherwise is confused and unable to provide additional hx. Of additional note, admitting labs revealed an elevat ed troponin of 0.39. She is unable to provide hx with respect to chest pain. She is s/p TA VR and has a (+) hx of CAD altho details unavailable. Currently upright on commode. Per son, no mer blood per rectum Chest is diminished but clear, cardiac exam is tachy, reg, no appeciable murmurs; exam limi yoel by pt's agitation, discomfort. Her abd is soft and no focus of pain was identified on palpation. Will monitor hemodynamics Serial trop's Check echo Carvedilol (low dose) Aspirin Continue statin Follow serial H/H, stable thus far Zosyn empirically for recurrent diverticulitis Ask GI to see Abd ultrasound to evaluate for biliary ductal dilatation Consider MRCP if able Routine duonebs for hx of COPD Pt on chronic prednisone altho would favor taper and dc if able Advance directive discussed with son; FULL CODE for now. documented in this encounter Plan of Treatment +--------+ + + + + | Date | Type | Specialty | Care Team | Description | +--------+ + + + + | 03/23/ | Office | Anticoagulation | García Harris, | | 2019 | Visit | | [employer] [address] | | | | | | [place] | | | | | | [phone] | | | | | | | | +--------+ + + + + | 04/11/ | Appointment | Radiology | Shawn Michael | | 2019 | | | MD Marcelino [address] | | | | | | [address] | | | | | | [place] [address] | | | | | | [phone] | | | | | | | | +--------+ + + + + | 04/13/ | Office | Cardiology | Shawn Michael | | | 2020 | Visit | | MD Marcelino [address] | | | | | | [address] [place] | | | | | | [place] [address] | | | | | | [phone] | | | | | | | | +--------+ + + + + + +------+--------+ + + | Name | Type | Priori | Associated Diagnoses | Date/Time | | | | ty | | | + +------+--------+ + + | ED INFORMATION | MICHAEL | Routin | | 09/01/2019 10:21 PM | | EXCHANGE | | e | | PST | + +------+--------+ + + + + +--------+ + + | Name | Type | Priori | Associated Diagnoses | Order Schedule | | | | ty | | | + + +--------+ + + | Referral to Home | Outpatient | Routin | Diverticulitis | Ordered: 09/08/2019 | | Health - OUTPATIENT | Referral | e | Chronic obstructive | | | | | | pulmonary disease, | | | | | | unspecified COPD | | | | | | type (HCC) | | + + +--------+ + + documented as of this encounter Procedures + +--------+ + + + | Procedure Name | Priori | Date/Time | Associated Diagnosis | Comments | | | ty | | | | + +--------+ + + + | CBC WITH | Routin | 09/08/2019 | | Results for this | | DIFFERENTIAL | e | 3:01 AM | | procedure are in the | | | | PST | | results section. | + +--------+ + + + | BASIC METABOLIC | Routin | 09/08/2019 | | Results for this | | PANEL | e | 3:01 AM | | procedure are in the | | | | PST | | results section. | + +--------+ + + + | CBC NO DIFFERENTIAL | Routin | 09/07/2019 | | Results for this | | | e | 5:17 PM | | procedure are in the | | | | PST | | results section. | + +--------+ + + + | TROPONIN I | STAT | 09/07/2019 | | Results for this | | | | 2:13 PM | | procedure are in the | | | | PST | | results section. | + +--------+ + + + | CBC NO DIFFERENTIAL | Routin | 09/07/2019 | | Results for this | | | e | 11:03 AM | | procedure are in the | | | | PST | | results section. | + +--------+ + + + | CBC NO DIFFERENTIAL | Routin | 09/07/2019 | | Results for this | | | e | 5:13 AM | | procedure are in the | | | | PST | | results section. | + +--------+ + + + | CBC NO DIFFERENTIAL | Routin | 09/07/2019 | | Results for this | | | e | 12:08 AM | | procedure are in the | | | | PST | | results section. | + +--------+ + + + | CBC NO DIFFERENTIAL | Routin | 09/06/2019 | | Results for this | | | e | 5:36 PM | | procedure are in the | | | | PST | | results section. | + +--------+ + + + | XR CHEST AP PORTABLE | LAUREN | 09/06/2019 | Sepsis, due to | Results for this | | | | 2:22 PM | unspecified | procedure are in the | | | | PST | organism, | results section. | | | | | unspecified whether | | | | | | acute organ | | | | | | dysfunction present | | | | | | (HCC) | | + +--------+ + + + | CBC NO DIFFERENTIAL | Routin | 09/06/2019 | | Results for this | | | e | 12:16 PM | | procedure are in the | | | | PST | | results section. | + +--------+ + + + | EXTRA GREEN TOP TUBE | Routin | 09/06/2019 | | Results for this | | | e | 6:08 AM | | procedure are in the | | | | PST | | results section. | + +--------+ + + + | CBC NO DIFFERENTIAL | Routin | 09/06/2019 | | Results for this | | | e | 6:08 AM | | procedure are in the | | | | PST | | results section. | + +--------+ + + + | CBC NO DIFFERENTIAL | Routin | 09/06/2019 | | Results for this | | | e | 12:22 AM | | procedure are in the | | | | PST | | results section. | + +--------+ + + + | CBC NO DIFFERENTIAL | Routin | 09/05/2019 | | Results for this | | | e | 5:59 PM | | procedure are in the | | | | PST | | results section. | + +--------+ + + + | CBC NO DIFFERENTIAL | Routin | 09/05/2019 | | Results for this | | | e | 12:05 PM | | procedure are in the | | | | PST | | results section. | + +--------+ + + + | CBC NO DIFFERENTIAL | Routin | 09/05/2019 | | Results for this | | | e | 5:22 AM | | procedure are in the | | | | PST | | results section. | + +--------+ + + + | MAGNESIUM | Routin | 09/05/2019 | | Results for this | | | e | 5:22 AM | | procedure are in the | | | | PST | | results section. | + +--------+ + + + | HEPATIC FUNCTION | Routin | 09/05/2019 | | Results for this | | PANEL | e | 5:22 AM | | procedure are in the | | | | PST | | results section. | + +--------+ + + + | BASIC METABOLIC | Routin | 09/05/2019 | | Results for this | | PANEL | e | 5:22 AM | | procedure are in the | | | | PST | | results section. | + +--------+ + + + | POC BLOOD GASES | Routin | 09/04/2019 | | Results for this | | | e | 11:04 PM | | procedure are in the | | | | PST | | results section. | + +--------+ + + + | CBC NO DIFFERENTIAL | Routin | 09/04/2019 | | Results for this | | | e | 9:56 PM | | procedure are in the | | | | PST | | results section. | + +--------+ + + + | CBC NO DIFFERENTIAL | Routin | 09/04/2019 | | Results for this | | | e | 11:53 AM | | procedure are in the | | | | PST | | results section. | + +--------+ + + + | EXTRA GREEN TOP TUBE | Routin | 09/04/2019 | | Results for this | | | e | 6:04 AM | | procedure are in the | | | | PST | | results section. | + +--------+ + + + | CBC NO DIFFERENTIAL | Routin | 09/04/2019 | | Results for this | | | e | 5:56 AM | | procedure are in the | | | | PST | | results section. | + +--------+ + + + | CBC NO DIFFERENTIAL | Routin | 09/04/2019 | | Results for this | | | e | 12:08 AM | | procedure are in the | | | | PST | | results section. | + +--------+ + + + | CBC NO DIFFERENTIAL | Routin | 09/03/2019 | | Results for this | | | e | 6:04 PM | | procedure are in the | | | | PST | | results section. | + +--------+ + + + | CBC NO DIFFERENTIAL | Routin | 09/03/2019 | | Results for this | | | e | 2:07 PM | | procedure are in the | | | | PST | | results section. | + +--------+ + + + | MRI MRCP LIVER WO | Routin | 09/03/2019 | | Results for this | | CONTRAST | e | 12:38 PM | | procedure are in the | | | | PST | | results section. | + +--------+ + + + | ECHO LIMITED | Routin | 09/03/2019 | | Results for this | | | e | 10:51 AM | | procedure are in the | | | | PST | | results section. | + +--------+ + + + | US ABDOMEN LIMITED | Routin | 09/03/2019 | | Results for this | | | e | 7:53 AM | | procedure are in the | | | | PST | | results section. | + +--------+ + + + | EXTRA GREEN TOP TUBE | Routin | 09/03/2019 | | Results for this | | | e | 6:05 AM | | procedure are in the | | | | PST | | results section. | + +--------+ + + + | CBC NO DIFFERENTIAL | Routin | 09/03/2019 | | Results for this | | | e | 6:05 AM | | procedure are in the | | | | PST | | results section. | + +--------+ + + + | CBC NO DIFFERENTIAL | Routin | 09/03/2019 | | Results for this | | | e | 12:08 AM | | procedure are in the | | | | PST | | results section. | + +--------+ + + + | CBC NO DIFFERENTIAL | Routin | 09/02/2019 | | Results for this | | | e | 6:05 PM | | procedure are in the | | | | PST | | results section. | + +--------+ + + + | TROPONIN I | Routin | 09/02/2019 | | Results for this | | | e | 12:30 PM | | procedure are in the | | | | PST | | results section. | + +--------+ + + + | CBC NO DIFFERENTIAL | Routin | 09/02/2019 | | Results for this | | | e | 12:30 PM | | procedure are in the | | | | PST | | results section. | + +--------+ + + + | TROPONIN I | Routin | 09/02/2019 | | Results for this | | | e | 6:03 AM | | procedure are in the | | | | PST | | results section. | + +--------+ + + + | CBC WITH | Routin | 09/02/2019 | | Results for this | | DIFFERENTIAL | e | 6:03 AM | | procedure are in the | | | | PST | | results section. | + +--------+ + + + | MAGNESIUM | Routin | 09/02/2019 | | Results for this | | | e | 6:03 AM | | procedure are in the | | | | PST | | results section. | + +--------+ + + + | COMPREHENSIVE | Routin | 09/02/2019 | | Results for this | | METABOLIC PANEL | e | 6:03 AM | | procedure are in the | | | | PST | | results section. | + +--------+ + + + | URINALYSIS, | Routin | 09/02/2019 | | Results for this | | MICROSCOPIC ONLY, | e | 4:20 AM | | procedure are in the | | WITH CULTURE IF | | PST | | results section. | | INDICATED | | | | | + +--------+ + + + | LACTIC ACID | STAT | 09/02/2019 | | Results for this | | | | 2:59 AM | | procedure are in the | | | | PST | | results section. | + +--------+ + + + | ECG 12 LEAD | STAT | 09/02/2019 | | Results for this | | | | 2:40 AM | | procedure are in the | | | | PST | | results section. | + +--------+ + + + | XR CHEST AP PORTABLE | STAT | 09/02/2019 | | Results for this | | | | 2:39 AM | | procedure are in the | | | | PST | | results section. | + +--------+ + + + | URINALYSIS WITH | STAT | 09/02/2019 | | Results for this | | MICROSCOPIC | | 12:25 AM | | procedure are in the | | | | PST | | results section. | + +--------+ + + + | ECG 12 LEAD | STAT | 09/02/2019 | | Results for this | | | | 12:03 AM | | procedure are in the | | | | PST | | results section. | + +--------+ + + + | CT ABDOMEN PELVIS W | STAT | 09/01/2019 | | Results for this | | CONTRAST | | 11:58 PM | | procedure are in the | | | | PST | | results section. | + +--------+ + + + | CULTURE, BLOOD | STAT | 09/01/2019 | | Results for this | | | | 11:21 PM | | procedure are in the | | | | PST | | results section. | + +--------+ + + + | TYPE AND SCREEN | STAT | 09/01/2019 | | Results for this | | | | 11:20 PM | | procedure are in the | | | | PST | | results section. | + +--------+ + + + | CULTURE, BLOOD | STAT | 09/01/2019 | | Results for this | | | | 11:18 PM | | procedure are in the | | | | PST | | results section. | + +--------+ + + + | EXTRA BLUE TOP TUBE | STAT | 09/01/2019 | | Results for this | | | | 11:05 PM | | procedure are in the | | | | PST | | results section. | + +--------+ + + + | TROPONIN I | STAT | 09/01/2019 | | Results for this | | | | 11:05 PM | | procedure are in the | | | | PST | | results section. | + +--------+ + + + | CBC WITH | STAT | 09/01/2019 | | Results for this | | DIFFERENTIAL | | 11:05 PM | | procedure are in the | | | | PST | | results section. | + +--------+ + + + | LIPASE | STAT | 09/01/2019 | | Results for this | | | | 11:05 PM | | procedure are in the | | | | PST | | results section. | + +--------+ + + + | LACTIC ACID | STAT | 09/01/2019 | | Results for this | | | | 11:05 PM | | procedure are in the | | | | PST | | results section. | + +--------+ + + + | COMPREHENSIVE | STAT | 09/01/2019 | | Results for this | | METABOLIC PANEL | | 11:05 PM | | procedure are in the | | | | PST | | results section. | + +--------+ + + + | IMAGING REPORT - | | 04/01/2019 | | Results for this | | [...] in this encounter Results Basic Metabolic Panel (09/08/2019 3:01 AM PST) + + + + + [...] 18 | 9 - 23 mg/dL | [facility] | | | | | | [facility] | | | | | | [facility] | | | | | | [facility] - | | | | | | LABORATORY | | + + + + + + | Creatinine | 0.63 | 0.55 - 1.02 | [facility] | | | | | mg/dL | [facility] | | | | | | [facility] | | | | | | C[facility] - | | | | | | LABORATORY | | + + + + + + | eGFR if not | >60Comment: GLOMERULAR | >=60 | [facility] | | | | FILTRATION | mL/min/1.73m2 | [facility] | | | [facility] | RATE,ESTIMATED | | MEDICAL | | | | mL/min/1.59g0Fisc than | | CENTER - | | [...] [address] | [place] | [phone] | | [facility] | | [address] | | | - LABORATORY | | | | + + + + + CBC with Differential (09/08/2019 3:01 AM PST) + + + + + + | Component | Value | Ref Range | Performed | Pathologist | | | | | At | Signature | + + + + + + | WBC | 7.9 | 4.0 - 11.0 K/uL | [facility] [...] + + + + | MCHC | 29.3 (L) | 32.0 - 36.0 | [facility] | | | | | g/dL | [facility] | | | | | | [facility] | | | | | | [facility] - | | | | | | LABORATORY | | + + + + + + | RDW-CV | 16.1 (H) | <15.0 % | [facility] | | | | | [facility] | | | [facility] | [facility] | | | | | | C[facility] - | | | | | | LABORATORY | | + + + + + + | RDW-SD | 57.9 (H) | 35.1 - 46.3 fL | [...] + + + + | % | 71.7 | 45.0 - 82.0 % | [facility] | | | Neutrophils | | | [facility] | | | | | | [facility] | | | | | | CENTER - | | | | | | LABORATORY | | + + + + + + | % | 13.7 (L) | 20.0 - 45.0 % | [facility] | | | Lymphocytes | | | [facility] | | | | | | [facility]ICAL | | | | | | CENTER - | | | | | | LABORATORY | | + + + + + + | % Monocytes | 11.3 | 4.0 - 12.0 % | [facility] | | | | | | [facility] | | | | | | [facility] | | | | | | C[facility] - | | | | | | LABORATORY | | + + + + + + | % | 2.4 | 0.0 - 5.0 % | [facility] [...] + + + + | Absolute | 5.69 | 1.80 - 8.50 | [facility] | [...] + + + + | Absolute | 0.19 | 0.00 - 0.40 | [facility] | [...] [address] | [place] | [phone] | | [facility] | | [address] | | | - LABORATORY | | | | + + + + + CBC no Differential (09/07/2019 5:17 PM PST) + + + + + [...] + + + + | RBC | 3.14 (L) | 3.70 - 5.20 | [facility] [...] + + + + | Hematocrit | 30.0 (L) | 34.0 - 47.0 % | [facility] | | [facility] | [facility] | [facility] | | | | | | C[facility] - | | | | | | LABORATORY | | + + + + + + | MCV | 95.5 | 83.0 - 101.0 fL | [facility] [...] + + + + | RDW-SD | 57.2 (H) | 35.1 - 46.3 fL | [facility] | [facility] | | [facility] | [facility] | | | | | | C[facility] - | | | | | | LABORATORY | | + + + + + + | Platelet | 176 | 140 - 440 K/uL | [facility] [...] + | [facility] | [address] | [place] | [phone] | | [facility] | | [address] | | | - LABORATORY | | | | + + + + + Troponin I (09/07/2019 2:13 PM PST) + + + + + + | Component | Value | Ref Range | Performed | Pathologist | | | | | At | Signature | + + + + + + | Troponin I | 0.04Comment: | <0.06 ng/mL | [facility] | | | | Comment:Reference | | [...] | | | | | | [employer] | | | | | [...] + | [facility] | [address] | [place] | [phone] | | [facility] | | [address] | | | - LABORATORY | | | | + + + + + CBC no Differential (09/07/2019 11:03 AM PST) + + + + + + | Component | Value | Ref Range | Performed | Pathologist | | | | | At | Signature | + + + + + + | WBC | 9.3 | 4.0 - 11.0 K/uL | [facility] | | | | | [facility] | | | | | [facility] | | | | | | [facility] - | | | | | | LABORATORY | | + + + + + + | RBC | 3.10 (L) | 3.70 - 5.20 | [facility] [...] + + + + | Hematocrit | 29.5 (L) | 34.0 - 47.0 % | [...] + + + + | Platelet | 172 | 140 - 440 K/uL | [facility] [...] [address] | [place] | [phone] | | [facility] | | | | | - LABORATORY | | | | + + + + + CBC no Differential (09/07/2019 5:13 AM PST) + + + + + [...] + + + + | RBC | 3.07 (L) | 3.70 - 5.20 | [facility] [...] + + + + | Hematocrit | 29.1 (L) | 34.0 - 47.0 % | [...] | | | | WBCs | [facility] | | | | [...] [address] | [place] | [phone] | | [facility] | | [address] | | | - LABORATORY | | | | + + + + + CBC no Differential (09/07/2019 12:08 AM PST) + + + + + [...] + + + + | RBC | 2.95 (L) | 3.70 - 5.20 | [facility] [...] + + + + | Hematocrit | 27.9 (L) | 34.0 - 47.0 % | [facility] | | | [facility] | | | | | | [facility] | | | | | | CENTER - | | | | | | LABORATORY | | + + + + + + | MCV | 94.6 | 83.0 - 101.0 fL | [facility] [...] [address] | [place] | [phone] | | [facility] | | [address] | | | - LABORATORY | | | | + + + + + CBC no Differential (09/06/2019 5:36 PM PST) + + + + + + | Component | Value | Ref Range | Performed | Pathologist | | | | | At | Signature | + + + + + + | WBC | 11.8 (H) | 4.0 - 11.0 K/uL | [facility] | | | [facility] | [facility] | [facility] | [facility] | | | | | | [facility] - | | | | | | LABORATORY | | + + + + + + | RBC | 3.20 (L) | 3.70 - 5.20 | [facility] [...] + + + + | RDW-SD | 54.9 (H) | 35.1 - 46.3 fL | [...] + + + + | MPV | 9.6 | 6.5 - 12.4 fL | [facility] [...] [address] | [place] | [phone] | | [facility] | | [address] | | | - LABORATORY | | | | + + + + + XR Chest AP Portable (09/06/2019 2:22 PM PST) + + | Specimen | + + | | + + + + + | Impressions | Performed At | + + + | 1. LEFT APPROACH PICC ULTIMATELY TERMINATING AT THE LEVEL OF | [facility] | | THE CAVOATRIAL JUNCTION. 2. MORE CONFLUENT RIGHT BASILAR | | | RETICULAR OPACITY COULD REFLECT CONSOLIDATION RELATED TO AIRWAY | | | DISEASE NOTED ON PREVIOUS CT. A SMALL RIGHT PLEURAL EFFUSION IS | | | AGAIN SUGGESTED. 3. SIMILAR BORDERLINE CARDIOMEGALY. 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 A left | | | approach PICC is now present, terminating on the final image at the | | | level of the cavoatrial junction. There is similar borderline | | | cardiomegaly. The pulmonary vasculature is unremarkable. Hazy | | | reticular opacity at the right base is more confluent and minimal | | | right pleural fluid is again suggested. The lungs are clear | | | elsewhere without pneumothorax. There is multilevel spondylosis. | | | Degenerative changes of the right shoulder are also apparent. 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 A left approach PICC is | | now present, terminating on the final image at the level of the cavoatrial | | junction. There is similar borderline cardiomegaly. The pulmonary vasculature | | is unremarkable. Hazy reticular opacity at the right base is more confluent and | | minimal right pleural fluid is again suggested. The lungs are clear elsewhere | | without pneumothorax. There is multilevel spondylosis. Degenerative changes of | | the right shoulder are also apparent. | | | | IMPRESSION: | | | | 1. LEFT APPROACH PICC ULTIMATELY TERMINATING AT THE LEVEL OF THE CAVOATRIAL | | JUNCTION. | | | | 2. MORE CONFLUENT RIGHT BASILAR RETICULAR OPACITY COULD REFLECT CONSOLIDATION | | RELATED TO AIRWAY DISEASE NOTED ON PREVIOUS CT. A SMALL RIGHT PLEURAL EFFUSION | | IS AGAIN SUGGESTED. | | | | 3. SIMILAR BORDERLINE CARDIOMEGALY. | | | | Dictated and Signed by: Sivakumar Ramon MD | | Electronically signed: 09/06/2019 2:27 PM | + + + +---------+ + + | Performing | Address | City/State/Zipcode | Phone Number | | Organization | | | | + +---------+ + + | [facility] | | | | + +---------+ + + CBC no Differential (09/06/2019 12:16 PM PST) + + + + + + | Component | Value | Ref Range | Performed | Pathologist | | | | | At | Signature | + + + + + + | WBC | 14.4 (H) | 4.0 - 11.0 K/uL | [...] + + + + | Hematocrit | 34.6 | 34.0 - 47.0 % | [facility] | | | | | | [facility] | | | | | | C[facility] - | | | | | | LABORATORY | | + + + + + + | MCV | 95.6 | 83.0 - 101.0 fL | [facility] [...] + + + + | MCHC | 29.8 (L) | 32.0 - 36.0 | [facility] [...] + + + + | Platelet | 177 | 140 - 440 K/uL | [facility] [...] + | [facility] | [address] | [place] | [phone] | | [facility] | | [address] | | | - LABORATORY | | | | + + + + + Extra Green Top Tube (09/06/2019 6:08 AM PST) + +-------+ + + + [...] | + + + + + | [facility] | [address] | [place] | [phone] | | [facility] | | [address] | | | - LABORATORY | | | | + + + + + CBC no Differential (09/06/2019 6:08 AM PST) + + + + + + | Component | Value | Ref Range | Performed | Pathologist | | | | | At | Signature | + + + + + + | WBC | 8.0 | 4.0 - 11.0 K/uL | [facility] [...] | 0.00 | 0.00 - 0.01 | [facility] | | | Susie | | K/uL | [facility] | [...] [address] | [place] | [phone] | | [facility] | | [address] | | | - LABORATORY | | | | + + + + + CBC no Differential (09/06/2019 12:22 AM PST) + + + + + + | Component | Value | Ref Range | Performed | Pathologist | | | | | At | Signature | + + + + + + | WBC | 6.7 | 4.0 - 11.0 K/uL | [facility] [...] + + + + | MCHC | 30.3 (L) | 32.0 - 36.0 | [facility] [...] + + + + | RDW-SD | 55.7 (H) | 35.1 - 46.3 fL | [...] + | [facility] | [address] | [place] | [phone] | | [facility] | | [address] | | | - LABORATORY | | | | + + + + + CBC no Differential (09/05/2019 5:59 PM PST) + + + + + + | Component | Value | Ref Range | Performed | Pathologist | | | | | At | Signature | + + + + + + | WBC | 5.9 | 4.0 - 11.0 K/uL | [facility] | | | | | | MEDICAL | | | | | | CENTER - | | | | | | LABORATORY | | + + + + + + | RBC | 3.02 (L) | 3.70 - 5.20 | [facility] [...] [address] | [place] | [phone] | | [facility] | | [address] | | | - LABORATORY | | | | + + + + + CBC no Differential (09/05/2019 12:05 PM PST) + + + + + [...] + + + + | RBC | 3.09 (L) | 3.70 - 5.20 | [facility] [...] [address] | [place] | [phone] | | [facility] | | [address] | | | - LABORATORY | | | | + + + + + CBC no Differential (09/05/2019 5:22 AM PST) + + + + + + | Component | Value | Ref Range | Performed | Pathologist | | | | | At | Signature | + + + + + + | WBC | 7.0 | 4.0 - 11.0 K/uL | [facility] | | | | | | [facility] | | | | | | MEDICAL | | | | | | CENTER - | | | | | | LABORATORY | | + + + + + + | RBC | 3.23 (L) | 3.70 - 5.20 | [facility] | | | | | M/uL | [facility] | | | | | [...] + + + + | RDW-SD | 55.7 (H) | 35.1 - 46.3 fL | [...] + + + + | Immature | 1.7Comment: Low PLT + | 0.9 - 11.2 [...] + | [facility] | [address] | [place] | [phone] | | [facility] | | [address] | | | - LABORATORY | | | | + + + + + Hepatic Function Panel (09/05/2019 5:22 AM PST) + +---------+ + + + | Component | Value | Ref Range | Performed | Pathologist | | | | | At | Signature | + +---------+ + + + | Bilirubin | 0.4 | 0.3 - 1.2 mg/dL | [facility] | | | Total | | | [facility] | | | | | | MEDICAL | | | | | | CENTER - | | | | | | LABORATORY | | + +---------+ + + + | Total | 4.9 (L) | 5.7 - 8.2 g/dL | [facility] | | | Protein | | | [facility] | | | | | | MEDICAL | | | | | | CENTER - | | | | | | LABORATORY | | + +---------+ + + + | Albumin | 2.9 (L) | 3.2 - 4.8 g/dL | [facility] | | | | | | [facility] | | | | | | MEDICAL | | | | | | CENTER - | | | | | | LABORATORY | | + +---------+ + + + | AST | 14 | 0 - 34 U/L | [facility] | | | | | [facility] | | | | | | MEDICAL | | | | | | CENTER - | | | | | | LABORATORY | | + +---------+ + + + | ALT | 18 | 10 - 49 U/L | [facility] [...] +---------+ + + + | Globulin | 2.0 (L) | 2.1 - 3.8 g/dL | [facility] | | | | | | [facility] | | | | | | MEDICAL | | | | | | CENTER - | | | | | | LABORATORY | | + +---------+ + + + | Albumin/Sarika | 1.5 | 0.8 - 1.9 | [facility] | | | bulin Ratio | | | [facility] | | | | | | MEDICAL | | | | | | CENTER - | | | | | | LABORATORY | | + +---------+ + + + | Bilirubin, | 0.10 | 0.00 - 0.30 | [facility] | [...] [address] | [place] | [phone] | | [facility] | | [address] | | | - LABORATORY | | | | + + + + + Magnesium (09/05/2019 5:22 AM PST) + +-------+ + + + [...] [address] | [place] | [phone] | | [facility] | | [address] | | | - LABORATORY | | | | + + + + + Basic Metabolic Panel (09/05/2019 5:22 AM PST) + + + + + [...] + + + + | Creatinine | 0.72 | 0.55 - 1.02 | [facility] | [...] mL/min/1.73m2 | [facility] | | | [facility] | RATE,ESTIMATED | | MEDICAL | | | | mL/min/1.31o1Trjq than | | CENTER - | | [...] + + + + | BUN/Creatin | 18.1 | | [facility] | | | ine [...] + | [facility] | [address] | [place] | [phone] | | [facility] | | [address] | | | - LABORATORY | | | | + + + + + POC Blood Gases (09/04/2019 11:04 PM PST) + + + + + + | Component | Value | Ref Range | Performed | Pathologist | | | | | At | Signature | + + + + + + | Specimen | Vein | | [facility] | | | Source | | | [facility] | | | | | | MEDICAL | | | | | | CENTER - | | | | | | LABORATORY | | + + + + + + | pH, POC | 7.409 | 7.3 - 7.45 | [facility] | | | | | | [facility] | | | | | | MEDICAL | | | | | | CENTER - | | | | | | LABORATORY | | + + + + + + | HCO3, POC | 29.8 (H) | 21.0 - 28.0 | [facility] | | | | | mmol/L | [facility] | | | | | | MEDICAL | | | | | | CENTER - | | | | | | LABORATORY | | + + + + + + | TCO2, POC | 31.2 (H) | 22.0 - 29.0 | [facility] | | | | | mmol/L | [facility] | | | | | | MEDICAL | | | | | | CENTER - | | | | | | LABORATORY | | + + + + + + | Base | 4.5 (H) | -2.0 - 3.0 | [facility] | | | Excess, POC | | mmol/L | [facility] | | | | | | MEDICAL | | | | | | CENTER - | | | | | | LABORATORY | | + + + + + + | Base | 5.1 (H) | -2.0 - 3.0 | [facility] | | | Excess, | | mmol/L | [facility] | | | Extracellul | | | MEDICAL | | | ar fluid, | | | CENTER - | | | POC | | | LABORATORY | | + + + + + + | O2 Sat, POC | 90 | 90 - 100 % | [facility] | | | | | | [facility] | | | | | | MEDICAL | | | | | | CENTER - | | | | | | LABORATORY | | + + + + + + | PCO2, POC | 47.0 (H) | 35 - 45 mmHg | [facility] | | | | | | [facility] | | | | | | MEDICAL | | | | | | CENTER - | | | | | | LABORATORY | | + + + + + + | pO2, POC | 60 | 60 - 750 mmHg | [facility] | | | | | [...] [address] | [place] | [phone] | | [facility] | | [address] | | | - LABORATORY | | | | + + + + + CBC no Differential (09/04/2019 9:56 PM PST) + + + + + [...] + + + + | Hematocrit | 28.6 (L) | 34.0 - 47.0 % | [facility] | | | | | [facility] | | | | | | MEDICAL | | | | | | CENTER - | | | | | | LABORATORY | | + + + + + + | MCV | 95.3 | 83.0 - 101.0 fL | [facility] [...] + + + + | Platelet | 176 | 140 - 440 K/uL | [facility] [...] [address] | [place] | [phone] | | [facility] | | [address] | | | - LABORATORY | | | | + + + + + CBC no Differential (09/04/2019 11:53 AM PST) + + + + + + | Component | Value | Ref Range | Performed | Pathologist | | | | | At | Signature | + + + + + + | WBC | 10.6 | 4.0 - 11.0 K/uL | [facility] | | | | | [facility] | | | | | | MEDICAL | | | | | | CENTER - | | | | | | LABORATORY | | + + + + + + | RBC | 3.26 (L) | 3.70 - 5.20 | [facility] [...] + + + + | MCV | 95.7 | 83.0 - 101.0 fL | [facility] [...] + + + + | RDW-SD | 57.1 (H) | 35.1 - 46.3 fL | [facility] | | | | | [facility] | | | | | | MEDICAL | | | | | | CENTER - | | | | | | LABORATORY | | + + + + + + | Platelet | 164 | 140 - 440 K/uL | [facility] [...] [address] | [place] | [phone] | | [facility] | | [address] | | | - LABORATORY | | | | + + + + + Extra Green Top Tube (09/04/2019 6:04 AM PST) + +-------+ + + + [...] [address] | [place] | [phone] | | [facility] | | [address] | | | - LABORATORY | | | | + + + + + CBC no Differential (09/04/2019 5:56 AM PST) + + + + + + | Component | Value | Ref Range | Performed | Pathologist | | | | | At | Signature | + + + + + + | WBC | 6.6 | 4.0 - 11.0 K/uL | [facility] [...] [address] | [place] | [phone] | | [facility] | | [address] | | | - LABORATORY | | | | + + + + + CBC no Differential (09/04/2019 12:08 AM PST) + + + + + + | Component | Value | Ref Range | Performed | Pathologist | | | | | At | Signature | + + + + + + | WBC | 7.0 | 4.0 - 11.0 K/uL | [facility] | | | | | [facility] | | | | | | MEDICAL | | | | | | CENTER - | | | | | | LABORATORY | | + + + + + + | RBC | 2.78 (L) | 3.70 - 5.20 | [facility] [...] + + + + | Hematocrit | 26.4 (L) | 34.0 - 47.0 % | [...] + + + + | MCHC | 30.3 (L) | 32.0 - 36.0 | [facility] [...] [address] | [place] | [phone] | | [facility] | | [address] | | | - LABORATORY | | | | + + + + + CBC no Differential (09/03/2019 6:04 PM PST) + + + + + + | Component | Value | Ref Range | Performed | Pathologist | | | | | At | Signature | + + + + + + | WBC | 8.9 | 4.0 - 11.0 K/uL | [facility] | | | | | [facility] | | | | | | MEDICAL | | | | | | CENTER - | | | | | | LABORATORY | | + + + + + + | RBC | 3.09 (L) | 3.70 - 5.20 | [facility] [...] + + + + | MCHC | 30.3 (L) | 32.0 - 36.0 | [facility] | | | | | g/dL | [facility] | | | | | | MEDICAL | | | | | | CENTER - | | | | | | LABORATORY | | + + + + + + | RDW-CV | 16.1 (H) | <15.0 % | [facility] | [...] [address] | [place] | [phone] | | [facility] | | [address] | | | - LABORATORY | | | | + + + + + CBC no Differential (09/03/2019 2:07 PM PST) + + + + + [...] + + + + | RDW-SD | 57.2 (H) | 35.1 - 46.3 fL | [facility] | | | | | [facility] | | | | | | MEDICAL | | | | | | CENTER - | | | | | | LABORATORY | | + + + + + + | Platelet | 147 | 140 - 440 K/uL | [facility] [...] [facility] | [address] | [place], [place] | [phone] | | [facility] | | [address] | | | - LABORATORY | | | | + + + + + MRI MRCP Liver wo Contrast (09/03/2019 12:38 PM PST) + + | Specimen | + + | | + + + + + | Impressions | Performed At | + + + | Severe intrahepatic and extra hepatic biliary ductal dilatation with | [facility] | | the CBD measuring up to 2.9 cm. Severe dilatation of the main | | | pancreatic duct measuring up to 8 mm. -No large hepatic adenopathy | | | identified on this noncontrast MRI. -Differential includes distal | | | stricture within the distal ampullary neoplasm unable to be excluded. | | | -Consider ERCP Small 12 mm T2 hyperintense cystic lesion is seen | | | within the pancreatic head with questionable communication with the | | | pancreatic duct. 4 other small subcentimeter T2 hyperintense cystic | | | lesions are seen scattered throughout the pancreatic body and tail. | | | -Differential includes IPMN's. -Consider 12 month follow-up | | | follow-up MRCP. Small bilateral pleural effusions. Dictated | | | and Signed by: Bartolome Neff MD Electronically signed: 09/03/2019 | | | 12:54 PM | | + + + + + + | Narrative | Performed At | + + + | MRI MRCP LIVER WO CONTRAST 09/03/2019 12:01 PM HISTORY:?biliary | [facility] | | ductal dilatation of ?etiology. COMPARISON: 09/01/2019 | | | PROTOCOL: Coronal T2 manager oracle database, axial T2 manager oracle database, coronal 3D respiratory | | | triggered, coronal T2 thin slab, T2 thick slab set. Reconstruction | | | views were obtained. FINDINGS: Severe intrahepatic and extra | | | hepatic biliary ductal dilatation with the CBD measuring up to 2.9 | | | cm. Severe dilatation of the main pancreatic duct measuring up to 8 | | | mm. Small 12 mm T2 hyperintense cystic lesion is seen within the | | | pancreatic head with questionable communication with the pancreatic | | | duct. 4 other small subcentimeter T2 hyperintense cystic lesions are | | | seen scattered throughout the pancreatic body and tail. Multiple | | | T2 hyperintense lesions are seen in the liver, likely representing | | | simple cysts. Multiple T2 hyperintense lesions are seen involving both | | | kidneys most suspicious for simple cysts. Scarring in the right | | | kidney. No acute abnormality involving the spleen, adrenal glands, or | | | bowel. Noninflamed colonic diverticula are present. Multilevel | | | degenerative changes involving the thoracic and lumbar spine | | | Small bibasilar dependent pleural effusions. Mild hypertrophy of the | | | left ventricular wall of the heart. | | + + + + + | Procedure Note | + + | Kobe, Rad Results In - 09/03/2019 12:57 PM PST MRI MRCP LIVER WO CONTRAST 09/03/2019 | | 12:01 PM HISTORY:?biliary ductal dilatation of ?etiology.COMPARISON: 09/01/2019PROTOCOL: | | Coronal T2 manager oracle database, axial T2 manager oracle database, coronal 3D respiratory triggered,coronal T2 thin | | slab, T2 thick slab set. Reconstruction views were obtained.FINDINGS:Severe intrahepatic | | and extra hepatic biliary ductal dilatation with the CBDmeasuring up to 2.9 cm. Severe | | dilatation of the main pancreatic duct measuringup to 8 mm. Small 12 mm T2 hyperintense | | cystic lesion is seen within thepancreatic head with questionable communication with the | | pancreatic duct. 4other small subcentimeter T2 hyperintense cystic lesions are seen | | scatteredthroughout the pancreatic body and tail.Multiple T2 hyperintense lesions are | | seen in the liver, likely representingsimple cysts. Multiple T2 hyperintense lesions are | | seen involving both kidneysmost suspicious for simple cysts. Scarring in the right | | kidney. No acuteabnormality involving the spleen, adrenal glands, or bowel. Noninflamed | | colonicdiverticula are present. Multilevel degenerative changes involving the | | thoracicand lumbar spineSmall bibasilar dependent pleural effusions. Mild hypertrophy of | | the leftventricular wall of the heart. IMPRESSION: Severe intrahepatic and extra | | hepatic biliary ductal dilatation with the CBDmeasuring up to 2.9 cm. Severe dilatation | | of the main pancreatic duct measuringup to 8 mm. -No large hepatic adenopathy identified | | on this noncontrast MRI.-Differential includes distal stricture within the distal | | ampullary neoplasmunable to be excluded.-Consider ERCPSmall 12 mm T2 hyperintense cystic | | lesion is seen within the pancreatic headwith questionable communication with the | | pancreatic duct. 4 other smallsubcentimeter T2 hyperintense cystic lesions are seen | | scattered throughout thepancreatic body and tail.-Differential includes IPMN's.-Consider | | 12 month follow-up follow-up MRCP.Small bilateral pleural effusions.Dictated and Signed | | by: Bartolome Neff MD Electronically signed: 09/03/2019 12:54 PM | |Small bibasilar dependent pleural effusions. Mild hypertrophy of the left | |ventricular wall of the heart. 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 Severe dilatation of the main pancreatic duct measuring | |up to 8 mm. | |-No large hepatic adenopathy identified on this noncontrast MRI. | |-Differential includes distal stricture within the distal ampullary neoplasm | |unable to be excluded. | |-Consider ERCP | | | |Small 12 mm T2 hyperintense cystic lesion is seen within the pancreatic head | |with questionable communication with the pancreatic duct. 4 other small | |subcentimeter T2 hyperintense cystic lesions are seen scattered throughout the | |pancreatic body and tail. | |-Differential includes IPMN's. | |-Consider 12 month follow-up follow-up MRCP. | | | |Small bilateral pleural effusions. | | | |Dictated and Signed by: Bartolome Neff MD | | Electronically signed: 09/03/2019 12:54 PM | + + + +---------+ + + | Performing | Address | City/State/Zipcode | Phone Number | | Organization | | | | + +---------+ + + | [facility] | | | | + +---------+ + + Echo Limited (09/03/2019 10:51 AM PST) + +---------+ + + + | Component | Value | Ref Range | Performed | Pathologist | | | | | At | Signature | + +---------+ + + + | Patient | 123 lbs | | [facility] | | | Weight | | | | | | (lbs) | | | | | + +---------+ + + + | Patient | 65 in | | [facility] | | | Height | | | | | + +---------+ + + + | LVIDd | 4.29 | cm | [facility] | | + +---------+ + + + | FS | 30 | % | [facility] | | + +---------+ + + + | AV mean | 16.2 | mmHg | [facility] | | | gradient | | | | | + +---------+ + + + | Aortic | 1.55 | cm2 | [facility] | | | Valve Area | | | | | | by | | | | | | Continuity | | | | | | VTI | | | | | + +---------+ + + + | LVOT | 2.2 | cm | [facility] | | | diameter | | | | | + +---------+ + + + | LVOT peak | 108.91 | cm/s | [facility] | | | magalie | | | | | + +---------+ + + + | LVOT peak | 24.05 | cm | [facility] | | | VTI | | | | | + +---------+ + + + | AV peak magalie | 275.41 | cm/s | [facility] | | + +---------+ + + + | AV VTI | 59.12 | cm | [facility] | | + +---------+ + + + | MR max magalie | 509.41 | cm/s | [facility] | | + +---------+ + + + | AV peak | 30.34 | mmHg | [facility] | | | gradient | | | | | + +---------+ + + + | AV LVOT | 4.74 | mmHg | [facility] | | | Peak | | | | | | Gradient | | | | | + +---------+ + + + | AV LVOT | 2.18 | mmHg | [facility] | | | Mean | | | | | | Gradient | | | | | + +---------+ + + + | TR Peak | 44 | mmHg | [facility] | | | Gradient | | | | | + +---------+ + + + | TR Velocity | 333.53 | cm | [facility] | | + +---------+ + + + | LV | 8.06 | cm | [facility] | | | Diastolic | | | | | | Length 4C | | | | | + +---------+ + + + | LV | 66 | % | [facility] | | | Schulz's | | | | | | Biplane EF | | | | | + +---------+ + + + | LV ED | 76.52 | ml | [facility] | | | Volume | | | | | | (Schulz's) | | | | | + +---------+ + + + | LV ED | 48 | ml/m2 | [facility] | | | Volume | | | | | | Index | | | | | + +---------+ + + + | LV ES | 26.25 | ml | [facility] | | | Volume | | | | | + +---------+ + + + | LVOT Mean | 66.84 | cm/s | [facility] | | | Velocity | | | | | + +---------+ + + + | AV | 317.3 | cm/s2 | [facility] | | | Deceleratio | | | | | | n [place] | | | | | + +---------+ + + + | AV Mean | 187.76 | cm/s | [facility] | | | Velocity | | | | | + +---------+ + + + | LA Major | 0.5912 | cm | [facility] | | + +---------+ + + + | LV ES | 16 | ml/m2 | [facility] | | | Volume | | | | | | Index | | | | | + +---------+ + + + | IVS | 0.95 | cm | [facility] | | | Diastolic | | | | | | Thickness | | | | | | MM | | | | | + +---------+ + + + | LVPW | 1.04 | cm | [facility] | | | Diastolic | | | | | | Thickness | | | | | | MM | | | | | + +---------+ + + + | IVS | 1.46 | cm | [facility] | | | Systolic | | | | | | Thickness | | | | | | MM | | | | | + +---------+ + + + | LV Systolic | 3.02 | cm | [facility] | | | Diameter | | | | | | MM | | | | | + +---------+ + + + | LVPW | 1.35 | cm | [facility] | | [...] At | + + + | 1. Normal | [facility] | | left ventricular chamber diameter with mild concentric hypertrophy | | | 2. Normal left ventricular systolic function without regional wall | | | motion abnormality 3. 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 Mild mitral valve regurgitation | | | 4. Mild mitral valve regurgitation | | | | | + + + + +---------+ + + | Performing | Address | City/State/Zipcode | Phone Number | | Organization | | | | + +---------+ + + | [facility] | | | | + +---------+ + + US Abdomen Limited (09/03/2019 7:53 AM PST) + + | Specimen | + + | | + + + + + | Impressions | Performed At | + + + | Severe dilatation of the intrahepatic and extrahepatic biliary ducts | [facility] | | which appear to measure up to 2.1 cm at the level of the vinicius | | | hepatis. Severe dilatation of the pancreatic duct measures up to | | | 7.0 mm. Dictated and Signed by: Bartolome Neff MD | | | Electronically signed: 09/03/2019 9:34 AM | | + + + + + + | Narrative | Performed At | + + + | US ABDOMEN LIMITED 09/03/2019 7:08 AM HISTORY: biliary | [facility] | | dilatation. COMPARISON: 09/01/2019 PROTOCOL: Tomlinson scale and | | | Doppler images of the abdomen. FINDINGS: Gallbladder: Severe | | | dilatation of the intrahepatic and extrahepatic biliary ducts which | | | appear to measure up to 2.1 cm at the level of the vinicius hepatis. | | | Liver: Parenchyma and contour are normal. Pancreas: Severe | | | dilatation of the pancreatic duct measures up to 7.0 mm. Right | | | kidney: Atrophic appearance of the right kidney which is echogenic. | | | Venous structures: There is normal blood flow in the IVC, portal | | | veins, and hepatic veins. | | + + + + + | Procedure Note | + + | Kobe, Rad Results In - 09/03/2019 9:37 AM PST US ABDOMEN LIMITED 09/03/2019 7:08 AM | | | | HISTORY: biliary dilatation. | | | | COMPARISON: 09/01/2019 | | | | PROTOCOL: Tomlinson scale and Doppler images of the abdomen. | | | | FINDINGS: | | Gallbladder: Severe dilatation of the intrahepatic and extrahepatic biliary | | ducts which appear to measure up to 2.1 cm at the level of the vinicius hepatis. | | | | Liver: Parenchyma and contour are normal. | | | | Pancreas: Severe dilatation of the pancreatic duct measures up to 7.0 mm. | | | | Right kidney: Atrophic appearance of the right kidney which is echogenic. | | | | Venous structures: There is normal blood flow in the IVC, portal veins, and | | hepatic veins. | | | | IMPRESSION: | | Severe dilatation of the intrahepatic and extrahepatic biliary ducts which | | appear to measure up to 2.1 cm at the level of the vinicius hepatis. | | | | Severe dilatation of the pancreatic duct measures up to 7.0 mm. | | | | Dictated and Signed by: Bartolome Neff MD | | Electronically signed: 09/03/2019 9:34 AM | + + + +---------+ + + | Performing | Address | City/State/Zipcode | Phone Number | | Organization | | | | + +---------+ + + | [facility] | | | | + +---------+ + + Extra Green Top Tube (09/03/2019 6:05 AM PST) + +-------+ + + + [...] [address] | [place] | [phone] | | [facility] | | [address] | | | - LABORATORY | | | | + + + + + CBC no Differential (09/03/2019 6:05 AM PST) + + + + + + | Component | Value | Ref Range | Performed | Pathologist | | | | | At | Signature | + + + + + + | WBC | 11.1 (H) | 4.0 - 11.0 K/uL | [facility] | | | | | | [facility]ICAL | | | | | | CENTER - | | | | | | LABORATORY | | + + + + + + | RBC | 3.29 (L) | 3.70 - 5.20 | [facility] [...] + + + + | RDW-SD | 58.3 (H) | 35.1 - 46.3 fL | [...] + | [facility] | [address] | [place] | [phone] | | [facility] | | [address] | | | - LABORATORY | | | | + + + + + CBC no Differential (09/03/2019 12:08 AM PST) + + + + + + | Component | Value | Ref Range | Performed | Pathologist | | | | | At | Signature | + + + + + + | WBC | 11.1 (H) | 4.0 - 11.0 K/uL | [...] + + + + | Hematocrit | 27.8 (L) | 34.0 - 47.0 % | [...] [address] | [place] | [phone] | | [facility] | | [address] | | | - LABORATORY | | | | + + + + + CBC no Differential (09/02/2019 6:05 PM PST) + + + + + [...] + + + + | RDW-SD | 55.7 (H) | 35.1 - 46.3 fL | [facility] | | | | | | [facility] | | | | [facility] - | | | | | | LABORATORY | | + + + + + + | Platelet | 151 | 140 - 440 K/uL | [facility] [...] + + + + | Immature | 1.5Comment: Low PLT + | 0.9 - 11.2 [...] [address] | [place] | [phone] | | [facility] | | [id number] | | | - LABORATORY | | | | + + + + + CBC no Differential (09/02/2019 12:30 PM PST) + + + + + + | Component | Value | Ref Range | Performed | Pathologist | | | | | At | Signature | + + + + + + | WBC | 18.1 (H) | 4.0 - 11.0 K/uL | [...] + + + + | Hematocrit | 32.9 (L) | 34.0 - 47.0 % | [facility] | [facility] | | | | | | [facility] | | | | | | [facility] - | | | | | | LABORATORY | | + + + + + + | MCV | 97.6 | 83.0 - 101.0 fL | [facility] [...] + + + + | MCHC | 29.8 (L) | 32.0 - 36.0 | [facility] [...] + + + + | RDW-SD | 58.5 (H) | 35.1 - 46.3 fL | [...] + | [facility] | [address] | [place] | [phone] | | [facility] | | [address] | | | - LABORATORY | | | | + + + + + Troponin I (09/02/2019 12:30 PM PST) + + + + + + | Component | Value | Ref Range | Performed | Pathologist | | | | | At | Signature | + + + + + + | Troponin I | 0.33 (H)Comment: | <0.06 ng/mL | [facility] | | | | Comment:Reference | | [facility] | | | | Ranges: 0.00-0.06 [...] | | | | | | [employer] | | | | | [...] + | [facility] | [address] | [place] | [phone] | | [facility] | | [address] | | | - LABORATORY | | | | + + + + + Troponin I (09/02/2019 6:03 AM PST) + + + + + + | Component | Value | Ref Range | Performed | Pathologist | | | | | At | Signature | + + + + + + | Troponin I | 0.39 (H)Comment: | <0.06 ng/mL | [facility] | | | | Comment:Reference | | [facility] | | | | Ranges: 0.00-0.06 [...] | | | | | | [employer] | | | | | [...] [facility] | [address] | [place] | [phone] | | [facility] | | [address] | | | - LABORATORY | | | | + + + + + Magnesium (09/02/2019 6:03 AM PST) + +-------+ + + + [...] [address] | [place] | [phone] | | [facility] | | [address] | | | - LABORATORY | | | | + + + + + Comprehensive Metabolic Panel (09/02/2019 6:03 AM PST) + +---------+ + + + | Component | Value | Ref Range | Performed | Pathologist | | | | | At | Signature | + +---------+ + + + | Na | 142 | 136 - 145 | [facility] | | | | | mmol/L | [facility] | | [facility] | [facility] | [facility] - | | | | | | LABORATORY | | + +---------+ + + + | K | 4.5 | 3.4 - 5.1 | [facility] | | | | | mmol/L | [facility] | | | | | | [facility] | | | | | | C[facility] - | | | | | | LABORATORY | | + +---------+ + + + | Cl | 109 (H) | 98 - 107 mmol/L | [facility] | | | | | | [facility] | | | | | | [facility] | | | | | | CENTER - | | | | | | LABORATORY | | + +---------+ + + + | CO2 | 26 | 20 - 31 mmol/L | [facility] | | | | | [facility] | | | | [facility] | [facility] | | | | | | C[facility] - | | | | | | LABORATORY | | + +---------+ + + + | Anion Gap | 7 | 3 - 16 mmol/L | [facility] | | | | | | [facility] | | | | | | [facility] | | | | | | CENTER - | | | | | | LABORATORY | | + +---------+ + + + | Glucose | 83 | 60 - 106 mg/dL | [facility] | | | | | [facility] | | | | | | [facility] | | | | | | CENTER - | | | | | | LABORATORY | | + +---------+ + + + | BUN | 23 | 9 - 23 mg/dL | [facility] | | | | | | [facility] | | | | | | [facility] | | | | | | CENTER - | | | | | | LABORATORY | | + +---------+ + + + | Creatinine | 0.70 | 0.55 - 1.02 | [facility] | | | | | mg/dL | [facility] | | | | | | [facility] | | | | | | CENTER - | | | | | | LABORATORY | | + +---------+ + + + | eGFR if not | >60 | >=60 | [facility] | | | | | mL/min/1.73m2 | [facility] | | [facility] | [facility] | | | | | | C[facility] - | | | | | | LABORATORY | | + +---------+ + + + | Calcium | 8.1 [...] +---------+ + + + | Total | 4.9 (L) | 5.7 - 8.2 g/dL | [facility] | | | Protein | | | [facility] | | | | | | [facility] | | | | | | CENTER - | | | | | | LABORATORY | | + +---------+ + + + | AST | 23 | 0 - 34 U/L | [facility] | | | | | | [facility] | | | | | | [facility] | | | | | | CENTER - | | | | | | LABORATORY | | + +---------+ + + + | ALT | 26 | 10 - 49 U/L | [facility] | | | | | | [facility] | | | | | | [facility] | | | | | | CENTER - | | | | | | LABORATORY | | + +---------+ + + + | Alkaline | 117 (H) | 46 - 116 U/L | [facility] | | | Phosphatase | | | [facility] | | [facility] | | | MEDICAL | | | | | | CENTER - | | | | | | LABORATORY | | + +---------+ + + + | Globulin | 1.8 (L) | 2.1 - 3.8 g/dL | [facility] | | | | | | [facility] | | | | | | MEDICAL | | | | | | CENTER - | | | | | | LABORATORY | | + +---------+ + + + | Albumin/Sarika | 1.7 | 0.8 - 1.9 | [facility] | | | bulin Ratio | | | [facility] | | | | | | MEDICAL | | | | | | CENTER - | | | | | | LABORATORY | | + +---------+ + + + | BUN/Creatin | 32.9 | | [facility] | | | ine [...] + + | [facility] | [address] | [place] | [phone] | | [facility] | | [address] | | | - LABORATORY | | | | + + + + + CBC with Differential (09/02/2019 6:03 AM PST) + + + + + + | Component | Value | Ref Range | Performed | Pathologist | | | | | At | Signature | + + + + + + | WBC | 19.1 (H) | 4.0 - 11.0 K/uL | [facility] | | | | | | [facility] | | | | | | [facility] | | | | | | CENTER - | | | | | | LABORATORY | | + + + + + + | RBC | 3.60 (L) | 3.70 - 5.20 | [facility] | | | | | M/uL | [facility] | | | | | | MEDICAL | | | | | | CENTER - | | | | | | LABORATORY | | + + + + + + | Hemoglobin | 10.5 (L) | 11.5 - 16.0 | [facility] | | | | | g/dL | [facility] | | | | | | MEDICAL | | | | | | CENTER - | | | | | | LABORATORY | | + + + + + + | Hematocrit | 33.7 (L) | 34.0 - 47.0 % | [...] + + + + | RDW-SD | 55.3 (H) | 35.1 - 46.3 fL | [facility] | | | | | [facility] | | | | | | MEDICAL | | | | | | CENTER - | | | | | | LABORATORY | | + + + + + + | Platelet | 138 (L) | 140 - 440 K/uL | [...] + + + + | % | 86.8 (H) | 45.0 - 82.0 % | [...] + + + | % Monocytes | 6.3 | 4.0 - 12.0 % | [facility] [...] + + + + | Absolute | 16.55 (H) | 1.80 - 8.50 | [facility] | | | Neutrophils | | K/uL | [facility] | | | | | | MEDICAL | | | | | | CENTER - | | | | | | LABORATORY | | + + + + + + | Absolute | 1.06 | 0.60 - 3.20 | [facility] | [...] + + + + | Absolute | 0.10 | 0.00 - 0.40 | [facility] | [...] + + + | Absolute | 0.11 (H) | 0.00 - 0.03 | [facility] [...] + | [facility] | [address] | [place] | [phone] | | [facility] | | [address] | | | - LABORATORY | | | | + + + + + Urinalysis, Microscopic Only, with Culture if Indicated (09/02/2019 4:20 AM PST) + + + + + + | Component | Value | Ref Range | Performed | Pathologist | | | | | At | Signature | + + + + + + | White Blood | 0-2 | 0 - 2 /HPF | [facility] | | | Cells, | | | [facility] | | | Urine | | [...] | | Yeast, | | | [facility] | | | Urine | | | [...] + | [facility] | [address] | [place] | [phone] | | [facility] | | [address] | | | - LABORATORY | | | | + + + + + Lactic Acid (09/02/2019 2:59 AM PST) + +-------+ + + + | Component | Value | Ref Range | Performed | Pathologist | | | | | At | Signature | + +-------+ + + + | Lactate | 0.7 | 0.5 - 2.2 | [facility] | [...] [address] | [place] | [phone] | | [facility] | | [address] | | | - LABORATORY | | | | + + + + + ECG 12 lead (09/02/2019 2:40 AM PST) + + + + + + | Component | Value | Ref Range | Performed | Pathologist | | | | | At | Signature | + + + + + + | VENTRICULAR | 106 | BPM | [facility] | | | RATE EKG | | | | | + + + + + + | ATRIAL RATE | 106 | BPM | [facility] | | [...] + + + + | Q-T | 310 | ms | [facility] | | [...] + + + | T AXIS | 75 | degrees | [facility] | | + + + + + + | INTERPRETAT | Sinus | | [facility] | | | ION TEXT | tachycardiaProminent/pea | | | | | | ked T waves:Consider | | | | | | hyperkalemia or | | | | | | hyperacute T waves of | | | | | | ischemiaWhen compared | | | | | | with ECG of 02-SEP-2019 | | | | | | 00:03, (Unconfirmed)No | | | | | | significant change was | | | | | | foundConfirmed by | | | | | | LEONIDAS CALVO MD ([id number]) | | | | | | on 09/02/2019 7:33:09 AM | | | | | | [...] +---------+ + + XR Chest AP Portable (09/02/2019 2:39 AM PST) + + | Specimen | + + | | + + + + + | Impressions | Performed At | + + + | 1. MILD BASILAR RETICULAR OPACITY, RIGHT GREATER THAN LEFT, | [facility] | | CORRESPONDING WITH BRONCHIAL WALL THICKENING AND POTENTIAL | | | ATELECTASIS VISIBLE ON PRECEDING ABDOMINAL CT, IN THE SETTING OF | | | MINIMAL RIGHT PLEURAL EFFUSION. 2. SIMILAR BORDERLINE | | | CARDIOMEGALY. Dictated and Signed by: Sivakumar Ramon MD | | | Electronically signed: 09/02/2019 9:01 AM | | + + + + + + | Narrative | Performed At | + + + | SINGLE AP CHEST 09/02/2019 2:39 AM CLINICAL HISTORY: SOB | [facility] | | COMPARISON: Preceding CT abdomen from the previous evening and more | | | remote imaging FINDINGS: Calcification and tortuosity of the | | | aorta and borderline cardiomegaly persist. The mediastinum and | | | pulmonary vasculature are otherwise unremarkable. Mild reticular | | | opacity in the right greater than left lung bases corresponds with | | | bronchial wall thickening and potential associated atelectasis visible | | | on preceding CT abdomen. Right pleural fluid is not well | | | visualized radiographically. The upper lungs are clear. No | | | pneumothorax is visible. There is multilevel spondylosis. | | + + + + + | Procedure Note | + + | Kobe, Rad Results In - 09/02/2019 9:04 AM PST SINGLE AP CHEST 09/02/2019 2:39 AM | | | | CLINICAL HISTORY: SOB | | | | COMPARISON: Preceding CT abdomen from the previous evening and more remote | | imaging | | | | FINDINGS: Calcification and tortuosity of the aorta and borderline cardiomegaly | | persist. The mediastinum and pulmonary vasculature are otherwise unremarkable. | | Mild reticular opacity in the right greater than left lung bases corresponds | | with bronchial wall thickening and potential associated atelectasis visible on | | preceding CT abdomen. Right pleural fluid is not well visualized | | radiographically. The upper lungs are clear. No pneumothorax is visible. | | There is multilevel spondylosis. | | | | IMPRESSION: | | | | 1. MILD BASILAR RETICULAR OPACITY, RIGHT GREATER THAN LEFT, CORRESPONDING WITH | | BRONCHIAL WALL THICKENING AND POTENTIAL ATELECTASIS VISIBLE ON PRECEDING | | ABDOMINAL CT, IN THE SETTING OF MINIMAL RIGHT PLEURAL EFFUSION. | | | | 2. SIMILAR BORDERLINE CARDIOMEGALY. | | | | Dictated and Signed by: Sivakumar Ramon MD | | Electronically signed: 09/02/2019 9:01 AM | + + + +---------+ + + | Performing | Address | City/State/Zipcode | Phone Number | | Organization | | | | + +---------+ + + | [facility] | | | | + +---------+ + + Urinalysis With Microscopic (09/02/2019 12:25 AM PST) + + + + + [...] + + + + | Specific | 1.027 | 1.001 - 1.030 | [facility] | | | [place], | | | [facility] | | [...] | [address] | [place] | [phone] | | [facility] | | [address] | | | - LABORATORY | | | | + + + + + ECG 12 lead (09/02/2019 12:03 AM PST) + + + + + [...] + + + + | P-R | 140 | ms | [facility] | | | INTERVAL | | | | | + + + + + + | QRS | 78 | ms | [facility] | | | DURATION | | | | | + + + + + + | Q-T | 308 | ms | [facility] | | | INTERVAL | | | | | + + + + + + | Q-T | 403 | ms | [facility] | | | INTERVAL | | | | | | (CORRECTED) | | | | | + + + + + + | P WAVE AXIS | 76 | degrees | [facility] | | + + + + + + | QRS AXIS | 69 | degrees | [facility] | | + + + + + + | T AXIS | 80 | degrees | [facility] | | + + + + + + | INTERPRETAT | Sinus tachycardiaLead V5 | | [facility] | | | ION TEXT | cannot be | | | | | | interpretedProminent/pea | | | | | | ked T waves consider | | | | | | hyeprkalemia or | | | | | | hyperacute T waves of | | | | | | ischemiaAbnormal ECGWhen | | | | | | compared with ECG of | | | | | | 20-AUG-2019 05:47,No | | | | | | significant change was | | | | | | foundConfirmed by | | | | | | LEONIDAS CALVO MD ([id number]) | | | | | | on 09/02/2019 7:31:02 AM | | | | | | [...] + + CT Abdomen Pelvis w Contrast (09/01/2019 11:58 PM PST) + + | Specimen | + + | | + + + + + | Impressions | Performed At | + + + | 1. MORE PRONOUNCED WALL THICKENING NEAR THE RECTOSIGMOID JUNCTION | [facility] | | COMPARED WITH IMAGING OF AUGUST 21. WHILE DIVERTICULITIS IS A | | | CONSIDERATION, THERE IS SIGNIFICANT CONCERN FOR MALIGNANCY GIVEN THE | | | CHRONICITY OF THIS PROCESS. AN OUTPOUCHING ALONG THE POSTERIOR | | | MARGIN OF THE BOWEL IN THIS VICINITY NOW CONTAINS A GREATER VOLUME OF | | | FLUID IN ADDITION TO GAS. NO FREE INTRAPERITONEAL GAS OR OTHER | | | FLUID COLLECTION IS EVIDENT. 2. SIMILAR PROMINENT BILIARY DUCTAL | | | DILATION AND BORDERLINE TO MILD PANCREATIC DUCTAL DILATION, STATUS | | | POST CHOLECYSTECTOMY. 3. SLIGHTLY GREATER BUT SMALL VOLUME OF | | | RIGHT PLEURAL FLUID WITH PERSISTENT BRONCHIAL WALL THICKENING AND | | | CLUSTERED NODULARITY IN THE IMAGED RIGHT LUNG BASE, FAVORING AN | | | AIRWAY CENTERED INFECTIOUS OR INFLAMMATORY PROCESS. PREVIOUSLY | | | VISIBLE NODULARITY IN THE LEFT LOWER LUNG HAS IMPROVED IN THE | | | INTERIM. 4. 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 Preliminary results of this study | | | were reported to the ER staff by the [facility] radiologist on | | | September 02, 2019 at 0044 hours. Dictated and Signed by: Sivakumar Ramon MD Electronically signed: 09/02/2019 1:14 PM | | + + + + + + | Narrative | Performed At | + + + | ENHANCED CT ABDOMEN AND PELVIS 09/01/2019 11:57 PM CLINICAL | [facility] | | HISTORY: Abdominal pain, acute, nonlocalized COMPARISON: | | | CT August 21 and more remote imaging TECHNIQUE: Axial images | | | are performed through the abdomen and pelvis following the uneventful | | | intravenous administration of 75 mL Omnipaque 350 contrast. | | | Coronal and sagittal reformations are also performed. ABDOMEN | | | FINDINGS: An aortic valve prosthesis is again partially imaged. | | | Coronary arterial calcification is again evident. A very small | | | dependent low attenuation right pleural effusion is slightly larger. | | | Bronchial wall thickening and clustered nodularity are again | | | evident in the imaged right lower lung, but is less conspicuous on | | | the left. The gallbladder is surgically absent and there is similar | | | prominent, generalized biliary ductal dilation with the common duct | | | again measuring up to 2.3 cm. There is similar borderline to mild | | | dilation of the main pancreatic duct up to a diameter of 7 mm. No | | | mechanical cause for obstruction is visible. Generalized pancreatic | | | atrophy is again apparent. There is a stable 1.5 cm round, high | | | attenuation, likely enhancing lesion in the far inferior, posterior | | | right hepatic lobe, again favoring a hemangioma or other benign | | | lesion. The spleen and adrenal glands are unremarkable. Small | | | hypodensities are again visible in the kidneys and favor cysts. No | | | nephroureterolithiasis or hydroureteronephrosis is evident. | | | Previously described rectosigmoid wall thickening appears more | | | pronounced from imaging of August 21. Extensive diverticulosis is | | | again noted in this region and extending into the descending colon. | | | There is persistent stranding of the perirectal and sigmoid | | | pericolonic fat. The previously described blind ending outpouching | | | along the posterior margin of the bowel near the rectosigmoid | | | junction is again evident, but appears to contain more fluid than gas | | | presently. This measures up to approximately 3.2 cm in diameter. | | | No free air or organized fluid is evident otherwise. Trace | | | perihepatic fluid is noted. There is a small volume of stool | | | throughout the nondilated colon elsewhere. The stomach and small | | | bowel are unremarkable, allowing for probable peristalsis in the | | | gastric body. The appendix is not confidently identified. No | | | pathologic lymph node enlargement or hernia is evident. There is | | | extensive aortoiliac calcification with similar mild aneurysmal | | | dilation of the distal aorta to a diameter of 3.2 cm. Noncalcified | | | plaque again mild to moderately narrows the infrarenal aortic lumen. | | | There is calcified plaque at the origins of the visceral aortic | | | branches. Solid osseous fusion and changes of posterior | | | decompression are again noted at the lumbosacral junction, in the | | | setting of chronic anterolisthesis. Degenerative changes, | | | anterolisthesis and stenosis are again noted immediately above this | | | level. There is extensive spondylosis elsewhere. PELVIS | | | FINDINGS: The uterus is absent and the ovaries are not identified. | | | The bladder is unremarkable. No pathologic lymph node enlargement | | | or hernia is evident. There are [id number] degenerative | | | changes of the hips and pubic symphysis. | | + + + + + | Procedure Note | + + | Kobe, Rad Results In - 09/02/2019 1:[address] ABDOMEN AND PELVIS | | 09/01/2019 11:57 PM CLINICAL HISTORY: Abdominal pain, acute, nonlocalized | | COMPARISON: CT August 21 and more remote imaging TECHNIQUE: Axial images are | | performed through the abdomen and pelvis followingthe uneventful intravenous | | administration of 75 mL Omnipaque 350 contrast. Coronal and sagittal reformations | | are also performed. ABDOMEN FINDINGS: An aortic valve prosthesis is again partially | | imaged. Coronary arterial calcification is again evident. A very small dependent | | lowattenuation right pleural effusion is slightly larger. Bronchial wallthickening and | | clustered nodularity are again evident in the imaged right lowerlung, but is less | | conspicuous on the left. The gallbladder is surgically absentand there is similar | | prominent, generalized biliary ductal dilation with thecommon duct again measuring up to | | 2.3 cm. There is similar borderline to milddilation of the main pancreatic duct up to | | a diameter of 7 mm. No mechanicalcause for obstruction is visible. Generalized | | pancreatic atrophy is againapparent. There is a stable 1.5 cm round, high attenuation, | | likely enhancinglesion in the far inferior, posterior right hepatic lobe, again favoring | | ahemangioma or other benign lesion. The spleen and adrenal glands areunremarkable. | | Small hypodensities are again visible in the kidneys and favorcysts. No | | nephroureterolithiasis or hydroureteronephrosis is evident.Previously described | | rectosigmoid wall thickening appears more pronounced fromimaging of August 21. | | Extensive diverticulosis is again noted in this regionand extending into the descending | | colon. There is persistent stranding of theperirectal and sigmoid pericolonic fat. The | | previously described blind endingoutpouching along the posterior margin of the bowel | | near the rectosigmoidjunction is again evident, but appears to contain more fluid than | | gas presently. This measures up to approximately 3.2 cm in diameter. No free air or | | organizedfluid is evident otherwise. Trace perihepatic fluid is noted. There is a | | smallvolume of stool throughout the nondilated colon elsewhere. The stomach andsmall | | bowel are unremarkable, allowing for probable peristalsis in the gastricbody. The | | appendix is not confidently identified. No pathologic lymph nodeenlargement or hernia | | is evident. There is extensive aortoiliac calcificationwith similar mild aneurysmal | | dilation of the distal aorta to a diameter of 3.2cm. Noncalcified plaque again mild to | | moderately narrows the infrarenal aorticlumen. There is calcified plaque at the origins | | of the visceral aorticbranches. Solid osseous fusion and changes of posterior | | decompression are againnoted at the lumbosacral junction, in the setting of chronic | | anterolisthesis. Degenerative changes, anterolisthesis and stenosis are again noted | | immediatelyabove this level. There is extensive spondylosis elsewhere. PELVIS FINDINGS: | | The uterus is absent and the ovaries are not identified. Thebladder is unremarkable. | | No pathologic lymph node enlargement or hernia isevident. There are [id number] | | degenerative changes of the hips and pubicsymphysis. IMPRESSION: 1. MORE PRONOUNCED | | WALL THICKENING NEAR THE RECTOSIGMOID JUNCTION COMPARED WITHIMAGING OF AUGUST 21. | | WHILE DIVERTICULITIS IS A CONSIDERATION, THERE ISSIGNIFICANT CONCERN FOR MALIGNANCY | | GIVEN THE CHRONICITY OF THIS PROCESS. ANOUTPOUCHING ALONG THE POSTERIOR MARGIN OF THE | | BOWEL IN THIS VICINITY NOWCONTAINS A GREATER VOLUME OF FLUID IN ADDITION TO GAS. NO | | FREE INTRAPERITONEALGAS OR OTHER FLUID COLLECTION IS EVIDENT.2. SIMILAR PROMINENT | | BILIARY DUCTAL DILATION AND BORDERLINE TO MILD PANCREATICDUCTAL DILATION, STATUS POST | | CHOLECYSTECTOMY.3. SLIGHTLY GREATER BUT SMALL VOLUME OF RIGHT PLEURAL FLUID WITH | | PERSISTENTBRONCHIAL WALL THICKENING AND CLUSTERED NODULARITY IN THE IMAGED RIGHT | | LUNGBASE, FAVORING AN AIRWAY CENTERED INFECTIOUS OR INFLAMMATORY PROCESS. PREVIOUSLY | | VISIBLE NODULARITY IN THE LEFT LOWER LUNG HAS IMPROVED IN THEINTERIM.4. EXTENSIVE | | VASCULAR CALCIFICATION AND MILD ANEURYSMAL DILATION OF THE DISTALAORTA.Preliminary | | results of this study were reported to the ER staff by the [facility] radiologist on | | September 02, 2019 at 0044 hours.Dictated and Signed by: Sivakumar Ramon MD Electronically | | signed: 09/02/2019 1:14 PM | |IMAGING OF AUGUST 21. WHILE DIVERTICULITIS IS A CONSIDERATION, THERE IS | |SIGNIFICANT CONCERN FOR MALIGNANCY GIVEN THE CHRONICITY OF THIS PROCESS. AN | |OUTPOUCHING ALONG THE POSTERIOR MARGIN OF THE BOWEL IN THIS VICINITY NOW | |CONTAINS A GREATER VOLUME OF FLUID IN ADDITION TO GAS. NO FREE INTRAPERITONEAL | |GAS OR OTHER FLUID COLLECTION IS EVIDENT. | | | |2. SIMILAR PROMINENT BILIARY DUCTAL DILATION AND BORDERLINE TO MILD PANCREATIC | |DUCTAL DILATION, STATUS POST CHOLECYSTECTOMY. | | | |3. SLIGHTLY GREATER BUT SMALL VOLUME OF RIGHT PLEURAL FLUID WITH PERSISTENT | |BRONCHIAL WALL THICKENING AND CLUSTERED NODULARITY IN THE IMAGED RIGHT LUNG | |BASE, FAVORING AN AIRWAY CENTERED INFECTIOUS OR INFLAMMATORY PROCESS. | |PREVIOUSLY VISIBLE NODULARITY IN THE LEFT LOWER LUNG HAS IMPROVED IN THE | |INTERIM. | | | |4. EXTENSIVE VASCULAR CALCIFICATION AND MILD ANEURYSMAL DILATION OF THE DISTAL | |AORTA. | | | |Preliminary results of this study were reported to the ER staff by the [facility] | |[facility] radiologist on September 02, 2019 at 0044 hours. | | | |Dictated and Signed by: Sivakumar Ramon MD | | Electronically signed: 09/02/2019 1:14 PM | + + + +---------+ + + | Performing | Address | City/State/Zipcode | Phone Number | | Organization | | | | + +---------+ + + | [facility] | | | | + +---------+ + + Culture, Blood (09/01/2019 11:21 PM PST) + + + + + [...] [address] | [place] | [phone] | | [facility] | | [address] | | | - LABORATORY | | | | + + + + + Type and Screen (09/01/2019 11:20 PM PST) + + + + + [...] + | [facility] | [address] | [place] | | | [facility] | | [address] | | | - BLOOD BANK | | | | + + + + + Culture, Blood (09/01/2019 11:18 PM PST) + + + + + [...] ST. | [address] | [place] | [phone] | | [facility] | | [address] | | | - LABORATORY | | | | + + + + + Extra Blue Top Tube (09/01/2019 11:05 PM PST) + +-------+ + + + [...] [address] | [place] | [phone] | | [facility] | | [address] | | | - LABORATORY | | | | + + + + + Lactic Acid (09/01/2019 11:05 PM PST) + +-------+ + + + [...] + | [facility] | [address] | [place] | [phone] | | [facility] | | [address] | | | - LABORATORY | | | | + + + + + Troponin I (09/01/2019 11:05 PM PST) + + + + + + | Component | Value | Ref Range | Performed | Pathologist | | | | | At | Signature | + + + + + + | Troponin I | 0.35 (H)Comment: | <0.06 ng/mL | [facility] | [...] | | | | | | [employer] | | | | | [...] + | [facility] | [address] | [place] | [phone] | | [facility] | | [address] | | | - LABORATORY | | | | + + + + + Lipase (09/01/2019 11:05 PM PST) + + + + + + | Component | Value | Ref Range | Performed | Pathologist | | | | | At | Signature | + + + + + + | Lipase | 37Comment: New method in | 12 - 53 U/L | [facility] | | | | use as of December 02, | | [facility] | | | | 2019. Check reference [...] [address] | [place] | [phone] | | [facility] | | [address] | | | - LABORATORY | | | | + + + + + Comprehensive Metabolic Panel (09/01/2019 11:05 PM PST) + +---------+ + + + | Component | Value | Ref Range | Performed | Pathologist | | | | | At | Signature | + +---------+ + + + | Na | 142 | 136 - 145 | [facility] | | | | | mmol/L | [facility] | | [facility] | [facility] | | [facility] | [facility] - | | | | | | LABORATORY | | + +---------+ + + + | K | 3.9 | 3.4 - 5.1 | [facility] | | | | | mmol/L | [facility] | | | | | | [facility]ICAL | | | | | | CENTER - | | | | | | LABORATORY | | + +---------+ + + + | Cl | 106 | 98 - 107 mmol/L | [facility] | | | | | | [facility] | | | | | | MEDICAL | | | | | | CENTER - | | | | | | LABORATORY | | + +---------+ + + + | CO2 | 32 (H) | 20 - 31 mmol/L | [facility] | | [facility] | | | | | | [facility] | | | | | | CENTER - | | | | | | LABORATORY | | + +---------+ + + + | Anion Gap | 4 | 3 - 16 mmol/L | [facility] | [facility] | | | | | | [facility] | | | | | | [facility] - | | | | | | LABORATORY | | + +---------+ + + + | Glucose | 85 | 60 - 106 mg/dL | [facility] | [facility] | | | | | | [facility] | | | | | | CENTER - | | | | | | LABORATORY | | + +---------+ + + + | BUN | 25 (H) | 9 - 23 mg/dL | [facility] | [facility] | | | | | | [facility] | | | | | | C[facility] - | | | | | | LABORATORY | | + +---------+ + + + | Creatinine | 0.68 | 0.55 - 1.02 | [facility] | | | | | mg/dL | [facility] | | | | | | [facility] | | | | | | CENTER - | | | | | | LABORATORY | | + +---------+ + + + | eGFR if not | >60 | >=60 | [facility] | | | | | mL/min/1.73m2 | [facility] | | [facility] | | | | | | C[facility] - | | | | | | LABORATORY | | + +---------+ + + + | Calcium | 8.6 (L) | 8.7 - 10.4 | [facility] | | | | | mg/dL | [facility] | | | | | | [facility] | | | | | | CENTER - | | | | | | LABORATORY | | + +---------+ + + + | Albumin | 3.2 | 3.2 - 4.8 g/dL | [facility] [...] +---------+ + + + | Total | 5.2 (L) | 5.7 - 8.2 g/dL | [facility] | | | Protein | | | [facility] | | | | | | MEDICAL | | | | | | CENTER - | | | | | | LABORATORY | | + +---------+ + + + | AST | 18 | 0 - 34 U/L | [facility] | | | | | [facility] | | | | | | [facility] | | | | | | CENTER - | | | | | | LABORATORY | | + +---------+ + + + | ALT | 29 | 10 - 49 U/L | [facility] | [facility] | [facility] | | | | | | [facility] | | | | | | CENTER - | | | | | | LABORATORY | | + +---------+ + + + | Alkaline | 112 | 46 - 116 U/L | [facility] | | | Phosphatase | | | [facility] | | | | | | [facility] | | | | | | CENTER - | | | | | | LABORATORY | | + +---------+ + + + | Globulin | 2.0 (L) | 2.1 - 3.8 g/dL | [facility] | | | | | [facility] | | | | | | [facility] | | | | | | CENTER - | | | | | | LABORATORY | | + +---------+ + + + | Albumin/Sarika | 1.6 | 0.8 - 1.9 | [facility] | | | bulin Ratio | | | [facility] | | | | | | MEDICAL | | | | | | CENTER - | | | | | | LABORATORY | | + +---------+ + + + | BUN/Creatin | 36.8 [...] | [address] | [place], [place] | [phone] | | [facility] | | [id number] | | | - LABORATORY | | | | + + + + + CBC with Differential (09/01/2019 11:05 PM PST) + + + + + + | Component | Value | Ref Range | Performed | Pathologist | | | | | At | Signature | + + + + + + | WBC | 17.1 (H) | 4.0 - 11.0 K/uL | [facility] | | | | [facility] | | | | | | MEDICAL | | | | | | CENTER - | | | | | | LABORATORY | | + + + + + + | RBC | 3.53 (L) | 3.70 - 5.20 | [facility] [...] + + + + | Hematocrit | 33.3 (L) | 34.0 - 47.0 % | [...] + + + + | RDW-CV | 16.1 (H) | <15.0 % | [facility] | [...] + + + + | MPV | 9.5 | 6.5 - 12.4 fL | [facility] | | | | | | [facility] | | | | | | [facility]ICAL | | | | | | CENTER - | | | | | | LABORATORY | | + + + + + + | % | 84.0 (H) | 45.0 - 82.0 % | [facility] | | | Neutrophils | | | [facility] | | | | | | MEDICAL | | | | | | CENTER - | | | | | | LABORATORY | | + + + + + + | % | 7.6 (L) | 20.0 - 45.0 % | [facility] | | | Lymphocytes | | | [facility] | | | | | | MEDICAL | | | | | | CENTER - | | | | | | LABORATORY | | + + + + + + | % Monocytes | 7.3 | 4.0 - 12.0 % | [facility] [...] + + + + | Absolute | 14.34 (H) | 1.80 - 8.50 | [facility] | | | Neutrophils | | K/uL | [facility] | | | | | | MEDICAL | | | | | | CENTER - | | | | | | LABORATORY | | + + + + + + | Absolute | 1.30 | 0.60 - 3.20 | [facility] | | | Lymphocytes | | K/uL | [facility] | | | | | | MEDICAL | | | | | | CENTER - | | | | | | LABORATORY | | + + + + + + | Absolute | 1.25 (H) | 0.00 - 1.00 | [facility] | | | Monocytes | | K/uL | [facility] | | | | | | MEDICAL | | | | | | CENTER - | | | | | | LABORATORY | | + + + + + + | Absolute | 0.10 | 0.00 - 0.40 | [facility] | [...] [address] | [place] | [phone] | | [facility] | | [id number] | | | - LABORATORY | | | | + + + + + IMAGING REPORT - EXTERNAL SCAN (04/01/2019 12:00 AM PDT) + + + | Narrative | Performed At | + + + | Ordered by an | | | unspecified provider. | | + + + CT Angiogram Chest Abdomen Pelvis w Contrast [...] + | Diagnosis | + + | Sepsis, due to unspecified organism, unspecified whether acute organ dysfunction | | present (HCC) - Primary | + + | Diverticulitis Diverticulitis of colon (without mention of hemorrhage) | + + | Elevated troponin Other abnormal blood chemistry | + + | Abnormal CT scan, gastrointestinal tract Nonspecific (abnormal) findings on | | radiological and other examination of gastrointestinal tract | + + | Pancreatic mass Unspecified disease of pancreas | + + | Chronic obstructive pulmonary disease, unspecified COPD type (HCC) | + + documented in this encounter Administered Medications + +--------+ +--------+------+------+ | Medication Order | MAR | Action | Dose | Rate | Site | | | Action | Date | | | | + +--------+ +--------+------+------+ | acetaminophen (TYLENOL) tablet | Given | 12/04/20 | 650 mg | | | | 650 mg 650 mg, Oral, EVERY 6 | | 19 1:09 | | | | | HOURS PRN, Pain, or fever >= 38.6 | | PM PST | | | | | C (101.5 F), Starting [facility] | | | | | | | 09/02/19 at 0221 | | | | | | + +--------+ +--------+------+------+ +-------+ +--------+---+---+ | Given | 09/05/20 | 650 mg | | | | | 19 5:14 | | | | | | AM PST | | | | +-------+ +--------+---+---+ +---+---+ | | | +---+---+ + +-------+ + +---+---+ | adult multivitamin with | Given | 09/08/20 | 1 tablet | | | | minerals/iron tablet 1 tablet 1 | | 19 8:25 | | | | | tablet, Oral, DAILY, First dose | | AM PST | | | | | on [facility] 09/02/19 at 0900 | | | | | | + +-------+ + +---+---+ +-------+ + +---+---+ | Given | 09/07/20 | 1 tablet | | | | | 19 9:43 | | | | | | AM PST | | | | +-------+ + +---+---+ | Given | 09/06/20 | 1 tablet | | | | | 19 9:46 | | | | | | AM PST | | | | +-------+ + +---+---+ +---+---+ | | | +---+---+ + +-------+ +--------+---+---+ | albuterol 2.5 mg/3 mL nebulizer | Given | 09/03/20 | 2.5 mg | | | | solution 2.5 mg 2.5 mg, | | 19 2:25 | | | | | Nebulization, RT EVERY 4 HOURS | | AM PST | | | | | PRN, Wheezing, Shortness of | | | | | | | Breath, Starting [facility] 09/02/19 at | | | | | | | 0221 | | | | | | + +-------+ +--------+---+---+ +-------+ +--------+---+---+ | Given | 09/02/20 | 2.5 mg | | | | | 19 3:09 | | | | | | PM PST | | | | +-------+ +--------+---+---+ | Given | 09/02/20 | 2.5 mg | | | | | 19 3:27 | | | | | | AM PST | | | | +-------+ +--------+---+---+ +---+---+ | | | +---+---+ + +-------+ +-------+---+---+ | albuterol-ipratropium 2.5-0.5 | Given | 09/07/20 | 3 mLs | | | | mg/3 mL nebulizer solution 3 mL | | 19 1:32 | | | | | 3 mL, Nebulization, 4 TIMES | | PM PST | | | | | DAILY, First dose on [facility] 09/02/19 | | | | | | | at 0800 | | | | | | + +-------+ +-------+---+---+ +-------+ +-------+---+---+ | Given | 09/07/20 | 3 mLs | | | | | 19 7:12 | | | | | | AM PST | | | | +-------+ +-------+---+---+ | Given | 09/06/20 | 3 mLs | | | | | 19 4:09 | | | | | | PM PST | | | | +-------+ +-------+---+---+ +---+---+ | | | +---+---+ + +-------+ +-------+---+---+ | albuterol-ipratropium 2.5-0.5 | Given | 09/08/20 | 3 mLs | | | | mg/3 mL nebulizer solution 3 mL | | 19 9:10 | | | | | 3 mL, Nebulization, 3 TIMES | | AM PST | | | | | DAILY, First dose (after last | | | | | | | modification) on Fri09/07/19 at | | | | | | | 2100 | | | | | | + +-------+ +-------+---+---+ +-------+ +-------+---+---+ | Given | 09/07/20 | 3 mLs | | | | | 19 8:00 | | | | | | PM PST | | | | +-------+ +-------+---+---+ +---+---+ | | | +---+---+ + +-------+ +-------+---+---+ | aspirin chewable tablet 81 mg | Given | 09/08/20 | 81 mg | | | | 81 mg, Oral, DAILY, First dose on | | 19 8:22 | | | | | [facility] 09/02/19 at 1230 | | AM PST | | | | + +-------+ +-------+---+---+ +-------+ +-------+---+---+ | Given | 09/07/20 | 81 mg | | | | | 19 9:43 | | | | | | AM PST | | | | +-------+ +-------+---+---+ | Given | 09/06/20 | 81 mg | | | | | 19 9:48 | | | | | | AM PST | | | | +-------+ +-------+---+---+ +---+---+ | | | +---+---+ + +-------+ +-------+---+---+ | atorvaSTATin (LIPITOR) tablet | Given | 09/08/20 | 20 mg | | | | 20 mg 20 mg, Oral, EVERY | | 19 8:22 | | | | | MORNING, First dose on [facility] | | AM PST | | | | | 09/02/19 at 0900 | | | | | | + +-------+ +-------+---+---+ +-------+ +-------+---+---+ | Given | 09/07/20 | 20 mg | | | | | 19 9:42 | | | | | | AM PST | | | | +-------+ +-------+---+---+ | Given | 09/06/20 | 20 mg | | | | | 19 9:48 | | | | | | AM PST | | | | +-------+ +-------+---+---+ +---+---+ | | | +---+---+ + +-------+ +--------+---+---+ | brimonidine (ALPHAGAN) 0.2% | Given | 09/08/20 | 1 drop | | | | ophthalmic solution 1 drop 1 | | 19 8:31 | | | | | drop, Both Eyes, 2 TIMES DAILY, | | AM PST | | | | | First dose on [facility] 09/02/19 at | | | | | | | 0900 | | | | | | + +-------+ +--------+---+---+ +-------+ +--------+---+---+ | Given | 09/07/20 | 1 drop | | | | | 19 8:57 | | | | | | PM PST | | | | +-------+ +--------+---+---+ | Given | 09/07/20 | 1 drop | | | | | 19 9:47 | | | | | | AM PST | | | | +-------+ +--------+---+---+ +---+---+ | | | +---+---+ + +-------+ +--------+---+---+ | budesonide (PULMICORT) | Given | 09/08/20 | 0.5 mg | | | | nebulizer solution 0.5 mg 0.5 | | 19 9:00 | | | | | mg, Nebulization, 2 TIMES DAILY, | | AM PST | | | | | First dose on [facility] 09/02/19 at | | | | | | | 0900, RT will administer. Shake | | | | | | | well. Protect from light. Rinse | | | | | | | mouth after use., | | | | | | + +-------+ +--------+---+---+ +-------+ +--------+---+---+ | Given | 09/07/20 | 0.5 mg | | | | | 19 8:00 | | | | | | PM PST | | | | +-------+ +--------+---+---+ | Given | 09/07/20 | 0.5 mg | | | | | 19 7:12 | | | | | | AM PST | | | | +-------+ +--------+---+---+ +---+---+ | | | +---+---+ + +-------+ + +---+---+ | calcium carbonate (TUMS) | Given | 09/08/20 | 1,000 mg | | | | chewable tablet 1,000 mg 1,000 | | 19 8:29 | | | | | mg, Oral, DAILY, First dose on | | AM PST | | | | | [facility] 09/02/19 at 0900 | | | | | | + +-------+ + +---+---+ +-------+ + +---+---+ | Given | 09/07/20 | 1,000 mg | | | | | 19 9:38 | | | | | | AM PST | | | | +-------+ + +---+---+ | Given | 09/06/20 | 1,000 mg | | | | | 19 9:46 | | | | | | AM PST | | | | +-------+ + +---+---+ +---+---+ | | | +---+---+ + +-------+ +---------+---+---+ | carvedilol (COREG) tablet 12.5 | Given | 09/08/20 | 12.5 mg | | | | mg 12.5 mg, Oral, 2 TIMES DAILY | | 19 8:25 | | | | | WITH BREAKFAST & DINNER, First | | AM PST | | | | | dose (after last modification) on | | | | | | | 09/06/19 at 1700 | | | | | | + +-------+ +---------+---+---+ +-------+ +---------+---+---+ | Given | 09/07/20 | 12.5 mg | | | | | 19 5:13 | | | | | | PM PST | | | | +-------+ +---------+---+---+ | Given | 09/07/20 | 12.5 mg | | | | | 19 9:36 | | | | | | AM PST | | | | +-------+ +---------+---+---+ +---+---+ | | | +---+---+ + +-------+ + +---+---+ | carvedilol (COREG) tablet 3.125 | Given | 09/04/20 | 3.125 mg | | | | mg 3.125 mg, Oral, 2 TIMES | | 19 8:51 | | | | | DAILY WITH BREAKFAST & DINNER, | | AM PST | | | | | First dose on [facility] 09/02/19 at | | | | | | | 1700 | | | | | | + +-------+ + +---+---+ +-------+ + +---+---+ | Given | 09/03/20 | 3.125 mg | | | | | 19 5:31 | | | | | | PM PST | | | | +-------+ + +---+---+ | Given | 09/03/20 | 3.125 mg | | | | | 19 9:21 | | | | | | AM PST | | | | +-------+ + +---+---+ +---+---+ | | | +---+---+ + +-------+ +---------+---+---+ | carvedilol (COREG) tablet 6.25 | Given | 09/06/20 | 6.25 mg | | | | mg 6.25 mg, Oral, 2 TIMES DAILY | | 19 10:12 | | | | | WITH BREAKFAST & DINNER, First | | AM PST | | | | | dose (after last modification) on | | | | | | | 09/04/19 at 1700 | | | | | | + +-------+ +---------+---+---+ +-------+ +---------+---+---+ | Given | 09/05/20 | 6.25 mg | | | | | 19 5:32 | | | | | | PM PST | | | | +-------+ +---------+---+---+ | Given | 09/05/20 | 6.25 mg | | | | | 19 9:03 | | | | | | AM PST | | | | +-------+ +---------+---+---+ +---+---+ | | | +---+---+ + +-------+ +-------+---+---+ | dicyclomine (BENTYL) capsule 10 | Given | 09/06/20 | 10 mg | | | | mg 10 mg, Oral, DAILY PRN, GI | | 19 5:00 | | | | | Upset, Starting [facility] 09/02/19 at | | AM PST | | | | | 0221 | | | | | | + +-------+ +-------+---+---+ +---+---+ | | | +---+---+ + +-------+ +--------+---+---+ | docusate sodium (COLACE) 50 | Given | 09/04/20 | 250 mg | | | | mg/5 mL liquid 250 mg 250 mg, | | 19 8:49 | | | | | Oral, EVERY MORNING, First dose | | AM PST | | | | | on [facility] 09/02/19 at 0900 | | | | | | + +-------+ +--------+---+---+ +-------+ +--------+---+---+ | Given | 09/03/20 | 250 mg | | | | | 19 9:25 | | | | | | AM PST | | | | +-------+ +--------+---+---+ +---+---+ | | | +---+---+ + +-------+ +--------+---+---+ | dorzolamide (TRUSOPT) 2% | Given | 09/08/20 | 1 drop | | | | ophthalmic solution 1 drop 1 | | 19 8:30 | | | | | drop, Both Eyes, 2 TIMES DAILY, | | AM PST | | | | | First dose on [facility] 09/02/19 at | | | | | | | 0900 | | | | | | + +-------+ +--------+---+---+ +-------+ +--------+---+---+ | Given | 09/07/20 | 1 drop | | | | | 19 8:57 | | | | | | PM PST | | | | +-------+ +--------+---+---+ | Given | 09/07/20 | 1 drop | | | | | 19 9:47 | | | | | | AM PST | | | | +-------+ +--------+---+---+ +---+---+ | | | +---+---+ + +---------+ +-----+-------+---+ | ertapenem (INVanz) 1 g in | New Bag | 09/08/20 | 1 g | 120 | | | sodium chloride 0.9% 50 mL IVPB | | 19 8:11 | | mL/hr | | | 1 g, Intravenous, Administer over | | AM PST | | | | | 30 Minutes, EVERY 24 HOURS | | | | | | | (Daily), First dose on Fri | | | | | | | 09/08/19 at 0900, Keep in | | | | | | | refrigerator., Indications: Acute | | | | | | | Abdominal Condition | | | | | | + +---------+ +-----+-------+---+ +---+---+ | | | +---+---+ + +-------+ +------+---+---+ | escitalopram (LEXAPRO) tablet 5 | Given | 09/08/20 | 5 mg | | | | mg 5 mg, Oral, DAILY, First | | 19 8:25 | | | | | dose on Fri09/02/19 at 0900 | | AM PST | | | | + +-------+ +------+---+---+ +-------+ +------+---+---+ | Given | 09/07/20 | 5 mg | | | | | 19 9:43 | | | | | | AM PST | | | | +-------+ +------+---+---+ | Given | 09/06/20 | 5 mg | | | | | 19 9:47 | | | | | | AM PST | | | | +-------+ +------+---+---+ +---+---+ | | | +---+---+ + +-------+ +--------+---+---+ | ferrous sulfate tablet 325 mg | Given | 09/08/20 | 325 mg | | | | 325 mg, Oral, DAILY WITH | | 19 8:25 | | | | | BREAKFAST, First dose on Fri | | AM PST | | | | | 09/02/19 at 0800 | | | | | | + +-------+ +--------+---+---+ +-------+ +--------+---+---+ | Given | 09/07/20 | 325 mg | | | | | 19 9:37 | | | | | | AM PST | | | | +-------+ +--------+---+---+ | Given | 09/06/20 | 325 mg | | | | | 19 9:44 | | | | | | AM PST | | | | +-------+ +--------+---+---+ +---+---+ | | | +---+---+ + +-------+ + +---+---+ | HYDROcodone-acetaminophen | Given | 09/08/20 | 1 tablet | | | | (NORCO) 7.5-325 mg per tablet 1 | | 19 8:24 | | | | | tablet 1 tablet, Oral, EVERY 8 | | AM PST | | | | | HOURS PRN, Pain, hold for | | | | | | | sedation, rr<10, Starting [facility] | | | | | | | 09/02/19 at 0221 | | | | | | + +-------+ + +---+---+ +-------+ + +---+---+ | Given | 09/07/20 | 1 tablet | | | | | 19 8:54 | | | | | | PM PST | | | | +-------+ + +---+---+ | Given | 09/07/20 | 1 tablet | | | | | 19 10:01 | | | | | | AM PST | | | | +-------+ + +---+---+ +---+---+ | | | +---+---+ + +-------+ +--------+---+---+ | HYDROmorphone (DILAUDID) | Given | 09/03/20 | 0.2 mg | | | | injection 0.2 mg 0.2 mg, | | 19 11:42 | | | | | Intravenous, EVERY 3 HOURS PRN, | | AM PST | | | | | Severe Pain, Pain, Starting [facility] | | | | | | | 09/02/19 at 1228 | | | | | | + +-------+ +--------+---+---+ +-------+ +--------+---+---+ | Given | 09/02/20 | 0.2 mg | | | | | 19 12:47 | | | | | | PM PST | | | | +-------+ +--------+---+---+ +---+---+ | | | +---+---+ + +-------+ +--------+---+---+ | iohexol (OMNIPAQUE 350) 350 | Given | 09/01/20 | 75 mLs | | | | mg/mL injection 75 mL 75 mL, | | 19 11:58 | | | | | Intravenous, ONCE PRN, Other, | | PM PST | | | | | Starting 09/01/19 at 2358, | | | | | | | For 1 dose, Cat Scanner | | | | | | + +-------+ +--------+---+---+ +---+---+ | | | +---+---+ + +-------+ +--------+---+---+ | latanoprost (XALATAN) 0.005% | Given | 09/07/20 | 1 drop | | | | ophthalmic solution 1 drop 1 | | 19 8:56 | | | | | drop, Both Eyes, NIGHTLY, First | | PM PST | | | | | dose on [facility] 09/02/19 at 2100 | | | | | | + +-------+ +--------+---+---+ +-------+ +--------+---+---+ | Given | 09/06/20 | 1 drop | | | | | 19 9:18 | | | | | | PM PST | | | | +-------+ +--------+---+---+ | Given | 09/05/20 | 1 drop | | | | | 19 8:24 | | | | | | PM PST | | | | +-------+ +--------+---+---+ +---+---+ | | | +---+---+ + +-------+ +-------+---+---+ | lisinopril (PRINIVIL, ZESTRIL) | Given | 09/08/20 | 20 mg | | | | tablet 20 mg 20 mg, Oral, DAILY, | | 19 8:22 | | | | | First dose (after last | | AM PST | | | | | modification) on Fri09/06/19 at | | | | | | | 0900 | | | | | | + +-------+ +-------+---+---+ +-------+ +-------+---+---+ | Given | 09/07/20 | 20 mg | | | | | 19 9:43 | | | | | | AM PST | | | | +-------+ +-------+---+---+ | Given | 09/06/20 | 20 mg | | | | | 19 9:44 | | | | | | AM PST | | | | +-------+ +-------+---+---+ +---+---+ | | | +---+---+ + +-------+ +------+---+---+ | lisinopril (PRINIVIL, ZESTRIL) | Given | 09/05/20 | 5 mg | | | | tablet 5 mg 5 mg, Oral, DAILY, | | 19 9:17 | | | | | First dose on 09/04/19 at | | AM PST | | | | | 1100 | | | | | | + +-------+ +------+---+---+ +-------+ +------+---+---+ | Given | 09/04/20 | 5 mg | | | | | 19 11:14 | | | | | | AM PST | | | | +-------+ +------+---+---+ +---+---+ | | | +---+---+ + +-------+ +--------+---+---+ | LORazepam (ATIVAN) injection | Given | 09/02/20 | 0.5 mg | | | | 0.5 mg 0.5 mg, Intravenous, | | 19 8:50 | | | | | EVERY 6 HOURS PRN, 2nd line for | | AM PST | | | | | nausea, Starting [facility] 09/02/19 at | | | | | | | 0224 | | | | | | + +-------+ +--------+---+---+ +---+---+ | | | +---+---+ + +-------+ +------+---+---+ | melatonin tablet 3 mg 3 mg, | Given | 09/07/20 | 3 mg | | | | Oral, NIGHTLY PRN, Insomnia, | | 19 8:54 | | | | | Starting [facility] 09/02/19 at 0221 | | PM PST | | | | + +-------+ +------+---+---+ +---+---+ | | | +---+---+ + +---------+ +-----+-------+---+ | meropenem (MERREM) 1 g in | New Bag | 09/08/20 | 1 g | 100 | | | sodium chloride 0.9% 50 mL IVPB | | 19 2:54 | | mL/hr | | | 1 g, Intravenous, Administer over | | AM PST | | | | | 30 Minutes, EVERY 12 HOURS | | | | | | | INTERVAL, First dose (after last | | | | | | | modification) on 09/06/19 at | | | | | | | 1400, For 4 doses, Activate | | | | | | | system and mix before use., | | | | | | | Indications: Diverticulitis of | | | | | | | the Gastrointestinal Tract | | | | | | + +---------+ +-----+-------+---+ +---------+ +-----+-------+---+ | New Bag | 09/07/20 | 1 g | 100 | | | | 19 1:21 | | mL/hr | | | | PM PST | | | | +---------+ +-----+-------+---+ | New Bag | 09/07/20 | 1 g | 100 | | | | 19 1:00 | | mL/hr | | | | AM PST | | | | +---------+ +-----+-------+---+ +---+---+ | | | +---+---+ + +-------+ +------+---+---+ | morphine injection 1-4 mg 1-4 | Given | 09/06/20 | 1 mg | | | | mg, Intravenous, EVERY 4 HOURS | | 19 10:05 | | | | | PRN, Pain, hold for sedation, | | AM PST | | | | | rr<10, Starting [facility] 09/02/19 at | | | | | | | 0221, Slow IV push, not faster | | | | | | | than 2 mg/minute. If ineffective | | | | | | | or not tolerated, use | | | | | | | hydromorphone IV if ordered., | | | | | | + +-------+ +------+---+---+ +---+---+ | | | +---+---+ + +-------+ +------+---+---+ | morphine injection 4 mg 4 mg, | Given | 09/02/20 | 4 mg | | | | Intravenous, EVERY 1 HOUR PRN, | | 19 12:51 | | | | | Pain, Starting [facility] 09/01/19 at | | AM PST | | | | | 2241, For 2 doses | | | | | | + +-------+ +------+---+---+ +-------+ +------+---+---+ | Given | 09/01/20 | 4 mg | | | | | 19 11:27 | | | | | | PM PST | | | | +-------+ +------+---+---+ +---+---+ | | | +---+---+ + +-------+ +------+---+---+ | OLANZapine zydis (zyPREXA | Given | 09/07/20 | 5 mg | | | | ZYDIS) disintegrating tablet 5 mg | | 19 8:54 | | | | | 5 mg, Oral, NIGHTLY, First dose | | PM PST | | | | | on [facility] 09/02/19 at 2100 | | | | | | + +-------+ +------+---+---+ +-------+ +------+---+---+ | Given | 09/06/20 | 5 mg | | | | | 19 9:15 | | | | | | PM PST | | | | +-------+ +------+---+---+ | Given | 09/05/20 | 5 mg | | | | | 19 8:23 | | | | | | PM PST | | | | +-------+ +------+---+---+ +---+---+ | | | +---+---+ + +-------+ +------+---+---+ | ondansetron (ZOFRAN) injection | Given | 11/28/20 | 4 mg | | | | 4 mg 4 mg, Intravenous, EVERY 1 | | 19 1:29 | | | | | HOUR PRN, Nausea, Starting Wed | | AM PST | | | | | 09/01/19 at 2241, For 2 doses | | | | | | + +-------+ +------+---+---+ +-------+ +------+---+---+ | Given | 09/01/20 | 4 mg | | | | | 19 11:25 | | | | | | PM PST | | | | +-------+ +------+---+---+ +---+---+ | | | +---+---+ + +-------+ +-------+---+---+ | oxybutynin (DITROPAN XL) ER | Given | 09/08/20 | 10 mg | | | | tablet 10 mg 10 mg, Oral, DAILY, | | 19 8:22 | | | | | First dose on [facility] 09/02/19 at | | AM PST | | | | | 0900 | | | | | | + +-------+ +-------+---+---+ +-------+ +-------+---+---+ | Given | 09/07/20 | 10 mg | | | | | 19 9:43 | | | | | | AM PST | | | | +-------+ +-------+---+---+ | Given | 09/06/20 | 10 mg | | | | | 19 9:48 | | | | | | AM PST | | | | +-------+ +-------+---+---+ +---+---+ | | | +---+---+ + +-------+ +-------+---+---+ | pantoprazole (PROTONIX) | Given | 09/08/20 | 80 mg | | | | injection 80 mg 80 mg, | | 19 8:15 | | | | | Intravenous, 2 TIMES DAILY, First | | AM PST | | | | | dose on Fri09/02/19 at 0900, If | | | | | | | reconstituting, mix each 40 mg | | | | | | | vial with 10 mL NS to make 4 | | | | | | | mg/mL., Indication: Bleeding, | | | | | | | occult | | | | | | + +-------+ +-------+---+---+ +-------+ +-------+---+---+ | Given | 12/03/20 | 80 mg | | | | | 19 8:54 | | | | | | PM PST | | | | +-------+ +-------+---+---+ | Given | 09/07/20 | 80 mg | | | | | 19 10:02 | | | | | | AM PST | | | | +-------+ +-------+---+---+ +---+---+ | | | +---+---+ + +---------+ +---------+-------+---+ | piperacillin-tazobactam (ZOSYN) | New Bag | 09/02/20 | 3.375 g | 200 | | | 3.375 g in sodium chloride 0.9% | | 19 1:25 | | mL/hr | | | 100 mL IVPB 3.375 g, | | AM PST | | | | | Intravenous, Administer over 0.5 | | | | | | | Hours, ONCE, [facility] 09/02/19 at | | | | | | | 0110, For 1 dose, Activate system | | | | | | | and mix before use., | | | | | | | Indications: Intra-Abdominal | | | | | | | Infection | | | | | | + +---------+ +---------+-------+---+ +---+---+ | | | +---+---+ + +---------+ +---------+ +---+ | piperacillin-tazobactam (ZOSYN) | New Bag | 09/06/20 | 3.375 g | 25 mL/hr | | | 3.375 g in sodium chloride 0.9% | | 19 7:00 | | | | | 100 mL IVPB 3.375 g, | | AM PST | | | | | Intravenous, Administer over 4 | | | | | | | Hours, EVERY 8 HOURS INTERVAL, | | | | | | | First dose on [facility] 09/02/19 at | | | | | | | 0600, Initiate this | | | | | | | extended-infusion order 4 hours | | | | | | | after the bolus dose was given; | | | | | | | note that order frequency is | | | | | | | every 8 hours as intended, but | | | | | | | the first dose of this 4-hour | | | | | | | extended-infusion must begin 4 | | | | | | | hours post-bolus (then given | | | | | | | every 8 hours thereafter)., Zosyn | | | | | | | is not compatible with Lactated | | | | | | | Ringer's., Activate system and | | | | | | | mix before use., Indications: | | | | | | | ENTERITIS AND COLITIS | | | | | | + +---------+ +---------+ +---+ +---------+ +---------+ +---+ | New Bag | 09/05/20 | 3.375 g | 25 mL/hr | | | | 19 10:50 | | | | | | PM PST | | | | +---------+ +---------+ +---+ | New Bag | 09/05/20 | 3.375 g | 25 mL/hr | | | | 19 2:44 | | | | | | PM PST | | | | +---------+ +---------+ +---+ +---+---+ | | | +---+---+ + +-------+ +------+---+---+ | polyethylene glycol (MIRALAX) | Given | 09/05/20 | 17 g | | | | powder 17 g 17 g, Oral, DAILY | | 19 9:04 | | | | | PRN, Constipation, Starting Zofia | | AM PST | | | | | 09/02/19 at 0221, If docusate and | | | | | | | senna ineffective or not | | | | | | | ordered., | | | | | | + +-------+ +------+---+---+ +-------+ +------+---+---+ | Given | 09/04/20 | 17 g | | | | | 19 11:11 | | | | | | AM PST | | | | +-------+ +------+---+---+ +---+---+ | | | +---+---+ + +-------+ +---------+---+---+ | polyvinyl alcohol (LIQUITEARS) | Given | 09/08/20 | 2 drops | | | | 1.4% ophthalmic solution 2 drop | | 19 8:31 | | | | | 2 drop, Both Eyes, EVERY MORNING, | | AM PST | | | | | First dose on [facility] 09/02/19 at | | | | | | | 0900 | | | | | | + +-------+ +---------+---+---+ +-------+ +---------+---+---+ | Given | 09/07/20 | 2 drops | | | | | 19 9:37 | | | | | | AM PST | | | | +-------+ +---------+---+---+ | Given | 09/06/20 | 2 drops | | | | | 19 9:49 | | | | | | AM PST | | | | +-------+ +---------+---+---+ +---+---+ | | | +---+---+ + +-------+ +-------+---+---+ | predniSONE (DELTASONE) tablet | Given | 09/08/20 | 10 mg | | | | 10 mg 10 mg, Oral, DAILY, First | | 19 8:25 | | | | | dose on [facility] 09/02/19 at 0900 | | AM PST | | | | + +-------+ +-------+---+---+ +-------+ +-------+---+---+ | Given | 09/07/20 | 10 mg | | | | | 19 9:42 | | | | | | AM PST | | | | +-------+ +-------+---+---+ | Given | 09/06/20 | 10 mg | | | | | 19 9:48 | | | | | | AM PST | | | | +-------+ +-------+---+---+ +---+---+ | | | +---+---+ + +-------+ +--------+---+---+ | senna (SENOKOT) tablet 8.6 mg | Given | 09/05/20 | 8.6 mg | | | | 8.6 mg, Oral, 2 TIMES DAILY PRN, | | 19 9:04 | | | | | Constipation, Starting Zofia | | AM PST | | | | | 09/02/19 at 220, If docusate | | | | | | | ineffective or not ordered., | | | | | | + +-------+ +--------+---+---+ +---+---+ | | | +---+---+ + +-------+ + +---+---+ | sodium chloride (OCEAN) 0.65% | Given | 09/07/20 | 2 sprays | | | | nasal spray 2 spray 2 spray, | | 19 9:40 | | | | | Each Nare, EVERY 2 HOURS PRN, | | AM PST | | | | | Nasal Dryness, Starting Zofia | | | | | | | 09/02/19 at 022 | | | | | | + +-------+ + +---+---+ +-------+ + +---+---+ | Given | 09/06/20 | 2 sprays | | | | | 19 11:56 | | | | | | PM PST | | | | +-------+ + +---+---+ | Given | 09/05/20 | 2 sprays | | | | | 19 3:40 | | | | | | AM PST | | | | +-------+ + +---+---+ +---+---+ | | | +---+---+ + +---------+ +--------+-------+---+ | sodium chloride 0.9% (NS) bolus | New Bag | 09/01/20 | 1,000 | 2000 | | | 1,000 mL 1,000 mL, Intravenous, | | 19 11:08 | mLs | mL/hr | | | Administer over 30 Minutes, | | PM PST | | | | | ONCE, 09/01/19 at 2245, For 1 | | | | | | | dose | | | | | | + +---------+ +--------+-------+---+ +---+---+ | | | +---+---+ documented in this encounter Additional Health Concerns + + + + | Infection | Noted Time | Resolved Time | + + + + | Methicillin-resistant Staphylococcus aureus | 06/08/2019 9:39 AM | | | | PDT | | + + + + documented as of this encounter
--- OUTSIDE RECORDS SUMMARY | ~2020-03-14 | XMS | Encounter Summary ---
Demographics + + + | Address | [address] | | | [place] [address] | + + + | Home Phone [...] Team Providers + +------+ + | Care Sociology Instructor Name | Role | Phone | [...] + + | 09/09/ | Emergency | [facility] | Virgilio Menzees, | Hematoma of left | | 2019 | | [facility] | MD [address] | parietal scalp, | | | | CENTER [address] | [place], [place] | initial encounter | | | | [place], [place] | [address] | (Primary Dx); Skin | | | | [id number] | | tear of left lower | | | | [phone] | Sammy Milan | leg without | | | | | DO Francesco [address] | complication, | | | | | [address] [place] | initial encounter | | | | | [place] [address] | | | | | | [phone] | | | | | | | [...] cannot be sent through Care Everywhere.Scalp Contusion (Namibian)documented in this encounter Medications at Time of [...] | | | | | type ([facility]) | | | | | | [...] | | 2019 | Visit | | AUTO BODY ESTIMATOR [address] | | | | | | [place] | | | | | | [address] | | | | | | | | +--------+ + + + + | 04/11/ | Appointment | Radiology | Shawn Michael | | | 2019 | | | MD [address] | | | | | | [address] [place] | | | | | | [place] [address] | | | | | | [phone] | | | | | | | | +--------+ + + + + | 04/13/ | Office | Cardiology | Shawn Michael | | | 2019 | Visit | | MD [address] | | | | | | [address] [place] | | | | | | [place] [address] | | | | | | [phone] | | | | | | | [...]
--- OUTSIDE RECORDS SUMMARY | ~2020-03-14 | XMS | Encounter Summary ---
Demographics + + + | Address | [address] | | | [place] [address] | + + + | Home Phone | | + + + | Preferred Language | Unknown | + + + | Marital Status | | + + + | Druze Affiliation | Unknown | + + + | Race | Unknown | + + + | Ethnic Group | Unknown | + + + Author + + + | Author | [facility] | | | and [place] | + + + | Organization | [facility] | | [...] Team Providers + +------+ + | Care [employer] Name | Role | Phone | + [...] | +--------+ + + + + | 08/01/ | Emergency | [facility] | Sammy Milan | Fall, initial | | 2018 | | [facility] | DO Francesco [address] | encounter (Primary | | | | CENTER [address] | [address] [facility] | Dx); Contusion of | | | | [place], [place] | [facility] [place] [address] | scalp, initial | | | | [address] | [phone] | encounter; Acute | | | | [phone] | | pain of right | | | | | | shoulder; Right hip | | | | | | pain | +--------+ + + + + Social [...] + + + | Blood Pressure | 153/68 | 08/01/2019 12:30 PM | | | | | PDT | | + + + + + | Pulse | 90 | 08/01/2019 12:30 PM | | | | | PDT | | + + + + + | Temperature | 36.6 C (97.8 F) | 08/01/2019 12:30 PM | | | | | PDT | | + + + + + | Respiratory Rate | 16 | 08/01/2019 12:30 PM | | | | | PDT | | + + + + + | Oxygen Saturation | 99% | 08/01/2019 12:30 PM | | | | | PDT [...] cannot be sent through Care Everywhere.Scalp Contusion (Danish)Falls, Preventing, Are You At Risk of Falling? (Danish)KELSIE (Danish)documented i n this encounter Medications at Time of Discharge [...] | | | | | [place] [id number] | | | | | | [phone] | | | | | | | | +--------+ + + + + | 04/13/ | Office | Cardiology | Shawn Michael | | | 2020 | Visit | | MD Marcelino [address] | | | | | | [address] [place] | | | | | | [place] [address] | | | | | | [phone] | | | | | | | | +--------+ + + + + + +------+--------+ + + | Name | Type | Priori | Associated Diagnoses | Date/Time | | | | ty | | | + +------+--------+ + + | ED INFORMATION | MICHAEL | Routin | | 08/01/2019 12:18 PM | | EXCHANGE | | e | | PDT | + +------+--------+ + + documented as of this encounter Procedures + +--------+ + + + | Procedure Name | Priori | Date/Time | Associated Diagnosis | Comments | | | ty | | | | + +--------+ + + + | XR HIP RIGHT 2-3 | STAT | 08/01/2019 | | Results for this | | VIEWS | | 1:21 PM | | procedure are in the | | | | PDT | | results section. | + +--------+ + + + | XR SHOULDER RIGHT 2 | STAT | 08/01/2019 | | Results for this | | + VW | | 1:21 PM | | procedure are in the | | | | PDT | | results section. | + +--------+ + + + | CT CERVICAL SPINE WO | STAT | 08/01/2019 | | Results for this | | CONTRAST | | 1:20 PM | | procedure are in the | | | | PDT | | results section. | + +--------+ + + + | CT HEAD WO CONTRAST | STAT | 08/01/2019 | | Results for this | | | | 1:20 PM | | procedure are in the | | | | PDT | | results section. | + +--------+ + + + | ED INFORMATION | Routin | 08/01/2019 | | | | EXCHANGE | e | 12:18 PM | | | | | | PDT | | | + +--------+ + + + +---+--------+ | | | | | Proced | | | ure | | | Note - | | | Kobe, | | | Lab In | | | | | | Hlseve | | | n - | | | | | | 2018 | | | 12:19 | | | PM PDT | | [...] | | | FICATI | | | ON?10/ | | | [birth year]/201 | | | 9 | | | 12:17? | | | SRIDEVI | | | , | | | MAHI | | | J?MRN: | | | | | | [id number] | | | [id number] | | | riteri | | | a Met | | | Care | | | Guidel | | | ash | | | Medica | | | id 5 | | | in 12 | | | 4 | | | [...] | | | endati | | | on:[place] | | | son | | | [...] | | | St. | | | [place] | | | y | | | [...] | | | MORNIN | | | G.Pres | | | cripti | | | on | | | Drug | | | Report | | | (12 | | | Mo.)PD | | | MP | | | query | | | found | | | no | | | report | | | .E.D. | | | Visit | | | Count | | | (12 | | | mo.)Fa | | | cility | | | | | | Visits | | | Low | | | Acuity | | | St. | | | [facility] | | | s | | | Hospit | | | al 6 0 | | | Good | | | [facility] | | | scott | | | Hospit | | | al 9 0 | | | | | | Provid | | | ence | | | St. | | | [facility] | | | Medica | | | l | | | Center | | | 6 0 | | | [place] | | | | | | Genera | | | l | | | Hospit | | | al 1 0 | | | [facility] | | | [facility] | | | [place] | | | y | | | [...] | | | int | | | Oct | | | 27, | | | 2019 | | | Provid | | | ence | | | St. | | | [facility] | | | [place] | | | [place] | | | Emerge | | | ncy | | | Head | | | injury | | | Oct | | | [...] | | | ified | | | Oct | | | 1, | | | 2019 | | [...] Breath | | | | | | Chest | | | Pain | | | | | | Dyspne | | | a, | | | unspec | | | ified | | | Sep | | | 23, | | | 2019 | | | Provid | | | ence | | | St. | | | [facility] | | | [place] | | | [place] | | | Emerge | | | ncy | | | Fall | | | | | | Neck | | | Pain | | | Head | | | | | | Injury | | | | | | Withou | | | t Loc | | | | | | Fall | | | same | | | lev | | | from | | | slip/t | | | rip | | | w/o | | | strike | | | | | | agains | | | t | | | object | | | , init | | | | | | Unspec | | | ified | | | injury | | | of | | | head, | | | initia | | | l | | | encoun | | | ter | | | | | | Contus | | | ion of | | | left | | | elbow, | | | | | | initia | | | l | | | encoun | | | ter | | | | | | Effusi | | | on, | | | left | | | elbow | | | Sep | | | 23, | | | 2019 | | | [facility] | | | [place] | | | [facility]. | | | [place] | | | [place] | | | Emerge | | | ncy | | | | | | Allerg | | | y | | | status | | | to | | | narcot | | | ic | | | agent | | | status | | | | | | Unspec | | | ified | | | injury | | | of | | | head, | | | initia | | | l | | | encoun | | | ter | | | Heart | | | [...] | | ion of | | | left | | | should | | | er, | | | initia | | | l | | | encoun | | | ter | | | Other | | | long | | | term | | | (curre | | | nt) | | | drug | | | therap | | | y | | | Allerg | | | y | | | status | | | to | | | sulfon | | | amides | | | | | | status | | | Aug | | | 26, | | | 2019 | | | Provid | | | ence | | | St. | | | [facility] | [facility] | [facility] | | | [place] | | | [place] | | | Emerge | | | ncy | | | Fall | | | | | | Nondis | | | [...] | | enzyme | | | s Aug | | | 6, | | | 2019 | | | St. | | | [facility] | | | s H. | | | [place] | | | [place] | | | Emerge | | | ncy | | | | | | VOMITT | | | ING, | | | DIAHRR | | | EAH | | | | | | Shortn | | | ess of | | | | | | Breath | | | | | | Diarrh | | | ea | | | Pneumo | | | tricia, | | | unspec | | | ified | | | organi | | | sm | | | Weakne | | | ss | | | Aug 1, | | | 2019 | | | Good | | | [facility]ari | | | scott H. | | | | | | [place] | | | [place] | | | Emerge | | | ncy | | | | | | Shortn | | | ess of | | | | | | breath | | | | | | Recent [...] | | | int | | | Oct | | | [...] | | | 2019 | | | [place] | | | | | | Genera [...] | | | 2019 | | | [place] | | | | | | Genera [...] | | | 2019 | | | [place] | | | | | | Genera [...] | | | ified | | | Feb | | | 10, | | | 2019 | | | Good | | | [facility] | | | scott H. | | | | | | [place] | | | [place] | | | Medica | | | l | | | Surgic | | | al | | | sepsis | | | , | | | pneumo | | | tricia | | | Acute | | | | | | respir | | | atory | | | failur | | | e, | | | unsp w | | | | | | hypoxi | | | a or | | | hyperc | | | apnia | | | | | | Chroni | | | c | | | obstru | | | ctive | | | pulmon | | | madison | | | diseas | | | e w | | | (acute | | | ) | | | exacer | | | bation | | | | | | Acute | | | and | | | chroni | | | c | | | respir | | | atory | | | failur | | | e with | | | | | | hypoxi | | | a | | | Other | | | chest | | | pain | | | | | | Hypero | | | smolal | | | ity | | | and | | | hypern | | | atremi | | | a | | | Other | | | atresi | | | a of | | | aorta | | | | | | Genera | | | lized | | | anxiet | | | y | | | disord | | | er | | | Other | | | dissoc | | | iative | | | and | | | conver | | | shelli | | | disord | | | ers | | | | | | Metabo | | | lic | | | enceph | | | alopat | | | hy | | | Dec | | | 31, | | | 2018 | | | Good | | | [facility] | | | scott H. | | | | | | [place] | | | [place] | | | Medica | | | l | | | Surgic | | | al | | | anemia | | | | | | Low | | | back | | | pain | | | | | | Other | | | chroni | | | c pain | | | | | | Chroni | | | c | | | obstru | | | ctive | | | pulmon | | | madison | | | diseas | | | e, | | | unspec | | | ified | | | Nov | | | 26, | | | 2018 | | | Good | | | [facility] | | | scott H. | | | | | | [place] | | | [place] | | | Medica | | | l | | | Surgic | | | al | | | Respir | | | atory | | | failur | | | e, | | | unsp, | | | unsp w | | | | | | hypoxi | | | a or | | | hyperc | | | apnia | | | | | | Pneumo | | | tricia, | | | unspec | | | ified | | | organi | | | sm | | | Other | | | reduce | | | d | | | mobili | | | ty | | | Care | | | [...] | | | M.D. | | | Director [facility] | | | al | | | Medici | | | ne | | | Curren | | | [...] | | | t | | | ROGER | | | DURIS | | | | | | Primar | | | y Care | | | | | | [phone] | | | [phone] | | | [address] | | | 1, | | | 2006 - | | | | | | Curren | | | [...] | | | https: | | | //secu | | | re.col | | | lectiv | | | emedic | | | al.com | | | /notif | | | [id number] | | | [id number] | | | [id number] | | | [id number] | | | [id number] | | | [id number] | | | 79 | | | PLEASE | | | [...] | +---+--------+ documented in this encounter Results XR Hip Right 2-3 Views (08/01/2019 1:21 PM PDT) + + | Specimen | + + | | + + + + + | Impressions | Performed At | + + + | No evidence for a right hip fracture. Dictated and Signed by: | [facility] | | Edwin Jarrell MD Electronically signed: 08/01/2019 1:38 PM | | + + + + + + | Narrative | Performed At | + + + | EXAM:XR HIP RIGHT 2-3 VIEWS CLINICAL HISTORY: FALL | [facility] | | COMPARISON: None. FINDINGS: Frontal view the pelvis. Frog-leg | | | view of the right hip. Mild degenerative changes in both hips. | | | No diastases of the pubic symphysis. No visible acute fracture. | | | There are multiple phleboliths. There are extensive vascular | | | calcifications. There is enthesopathy on the right greater | | | trochanter. Degenerative changes in the lower lumbar spine. | | + + + + + | Procedure Note | + + | Kofi Bullock Results In - 08/01/2019 1:41 PM PDT EXAM:XR HIP RIGHT 2-3 VIEWS | | | | CLINICAL HISTORY: FALL | | | | COMPARISON: None. | | | | FINDINGS: Frontal view the pelvis. Frog-leg view of the right hip. | | | | Mild degenerative changes in both hips. No diastases of the pubic symphysis. | | No visible acute fracture. There are multiple phleboliths. There are extensive | | vascular calcifications. There is enthesopathy on the right greater trochanter. | | Degenerative changes in the lower lumbar spine. | | | | IMPRESSION: | | | | No evidence for a right hip fracture. | | | | Dictated and Signed by: Edwin Jarrell MD | | Electronically signed: 08/01/2019 1:38 PM | + + + +---------+ + + | Performing | Address | City/State/Zipcode | Phone Number | | Organization | | | | + +---------+ + + | [facility] | | | | + +---------+ + + XR Shoulder Right 2 + Vw (08/01/2019 1:21 PM PDT) + + | Specimen | + + | | + + + + + | Impressions | Performed At | + + + | No acute fracture or current dislocation. Dictated and Signed | [facility] | | by: Edwin Jarrell MD Electronically signed: 08/01/2019 1:39 PM | | | | | + + + + + + | Narrative | Performed At | + + + | EXAM:XR SHOULDER RIGHT 2 + VW CLINICAL HISTORY: FALL | [facility] | | COMPARISON: None. FINDINGS: 2 views of the right shoulder. No | | | current dislocation. No acute fracture. There are degenerative | | | changes. No mineralization is normal. Soft tissues are | | | unremarkable. The visible right lung is clear. Valvular repair | | | changes. | | + + + + + | Procedure Note | + + | Kobe, Rad Results In - 08/01/2019 1:42 PM PDT EXAM:XR SHOULDER RIGHT 2 + VW | | | | CLINICAL HISTORY: FALL | | | | COMPARISON: None. | | | | FINDINGS: 2 views of the right shoulder. No current dislocation. No acute | | fracture. There are degenerative changes. No mineralization is normal. Soft | | tissues are unremarkable. The visible right lung is clear. Valvular repair | | changes. | | | | IMPRESSION: | | | | No acute fracture or current dislocation. | | | | Dictated and Signed by: Edwin Jarrell MD | | Electronically signed: 08/01/2019 1:39 PM | + + + +---------+ + + | Performing | Address | City/State/Zipcode | Phone Number | | Organization | | | | + +---------+ + + | [facility] | | | | + +---------+ + + CT Cervical Spine wo Contrast (08/01/2019 1:20 PM PDT) + + | Specimen | + + | | + + + + + | Impressions | Performed At | + + + | No CT evidence for an acute intracranial process. Evidence of | [facility] | | multiple remote infarcts. No CT evidence for an acute cervical | | | spine fracture or traumatic malalignment. Multilevel spondylosis | | | contributing to central spinal canal and neural foraminal narrowing. | | | Dictated and Signed by: Edwin Jarrell MD Electronically | | | signed: 08/01/2019 1:33 PM | | + + + + + + | Narrative | Performed At | + + + | EXAM: CT CERVICAL SPINE WO CONTRAST, CT HEAD WO CONTRAST dated | [facility] | | 08/01/2019 1:20 PM HISTORY: Neck trauma (Age > 65y) | | | Comparison: CT head and cervical spine 06/28/2019 TECHNIQUE: | | | Noncontrast CT is performed from the top of calvarium through the | | | skull base. Coronal and sagittal reformats are performed. | | | Noncontrast imaging is performed from the skull base through the | | | cervicothoracic junction. DOSE: DLP 806.32 mGy-cm FINDINGS: | | | HEAD: BRAIN: Ventricles, sulci and cisterns are unremarkable | | | for age No areas of increased attenuation to suggest intracranial | | | hemorrhage. There is no mass, mass effect, or midline shift. | | | There are no abnormal extra-axial fluid or air collections. There | | | is preservation of the benitez-white differentiation at this time. | | | There is moderate patchy to confluent decreased density in the | | | periventricular and subcortical white matter. Focal hypodensities in | | | the basal ganglia bilaterally and subinsular region on the left | | | consistent with remote ischemia. Encephalomalacia in the left | | | occipital lobe. This is either from remote trauma or ischemia. | | | SCALP/ CALVARIUM: Stable calcification in the posterior right | | | parietal scalp. No calvarial fracture. SINUSES / ORBITS/ | | | MASTOIDS: The visible mastoid air cells and paranasal sinuses are | | | clear. The globes and retroconal contents are intact and are | | | unremarkable. CERVICAL SPINE: There is acceptable alignment | | | from the craniocervical junction through the cervicothoracic | | | junction. Alignment is stable. Anterolisthesis of C3, C4, and C7. | | | Retrolisthesis of C5 and C6. There is no widening of the disc | | | spaces. There is no widening of the facets. There are no visible | | | acute fractures. The facet spacing is minimally prominent | | | bilaterally at C5-C6. This is unchanged. There are lucencies | | | involving the lamina bilaterally at C2. These are unchanged. | | | These are related to vascular channels. There is multilevel | | | central spinal canal and neural foraminal narrowing due to facet | | | arthrosis and uncinate hypertrophy. No mass effect upon the airway. | | | No visible pneumothorax. | | + + + + + | Procedure Note | + + | Kobe, Rad Results In - 08/01/2019 1:36 PM PDT EXAM: CT CERVICAL SPINE WO CONTRAST, CT | | HEAD WO CONTRAST dated 08/01/2019 1:20PMHISTORY: Neck trauma (Age > 65y)Comparison: CT | | head and cervical spine 06/28/2019TECHNIQUE: Noncontrast CT is performed from the top of | | calvarium through theskull base. Coronal and sagittal reformats are performed. | | Noncontrast imagingis performed from the skull base through the cervicothoracic | | junction.DOSE: DLP 806.32 mGy-cmFINDINGS: HEAD:BRAIN: Ventricles, sulci and cisterns | | are unremarkable for age No areas ofincreased attenuation to suggest intracranial | | hemorrhage. There is no mass,mass effect, or midline shift. There are no abnormal | | extra-axial fluid or aircollections. There is preservation of the benitez-white | | differentiation at thistime. There is moderate patchy to confluent decreased density in | | theperiventricular and subcortical white matter. Focal hypodensities in the | | basalganglia bilaterally and subinsular region on the left consistent with | | remoteischemia. Encephalomalacia in the left occipital lobe. This is either fromremote | | trauma or ischemia. SCALP/ CALVARIUM: Stable calcification in the posterior right | | parietal scalp. No calvarial fracture.SINUSES / ORBITS/ MASTOIDS: The visible mastoid | | air cells and paranasal sinusesare clear. The globes and retroconal contents are intact | | and are unremarkable.CERVICAL SPINE:There is acceptable alignment from the | | craniocervical junction through thecervicothoracic junction. Alignment is stable. | | Anterolisthesis of C3, C4, andC7. Retrolisthesis of C5 and C6. There is no widening of | | the disc spaces. There is no widening of the facets. There are no visible acute | | fractures. Thefacet spacing is minimally prominent bilaterally at C5-C6. This is | | unchanged. There are lucencies involving the lamina bilaterally at C2. These | | areunchanged. These are related to vascular channels. There is multilevel | | centralspinal canal and neural foraminal narrowing due to facet arthrosis and | | uncinatehypertrophy. No mass effect upon the airway. 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 The globes and retroconal contents are intact and are unremarkable. | | | |CERVICAL SPINE: | | | |There is acceptable alignment from the craniocervical junction through the | |cervicothoracic junction. Alignment is stable. Anterolisthesis of C3, C4, and | |C7. Retrolisthesis of C5 and C6. There is no widening of the disc spaces. | |There is no widening of the facets. There are no visible acute fractures. The | |facet spacing is minimally prominent bilaterally at C5-C6. This is unchanged. | |There are lucencies involving the lamina bilaterally at C2. These are | |unchanged. These are related to vascular channels. There is multilevel central | |spinal canal and neural foraminal narrowing due to facet arthrosis and uncinate | |hypertrophy. No mass effect upon the airway. No visible pneumothorax. | | | |IMPRESSION: | | | |No CT evidence for an acute intracranial process. | | | |Evidence of multiple remote infarcts. | | | |No CT evidence for an acute cervical spine fracture or traumatic malalignment. 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 | | | |Dictated and Signed by: Edwin Jarrell MD | | Electronically signed: 08/01/2019 1:33 PM | + + + +---------+ + + | Performing | Address | City/State/Zipcode | Phone Number | | Organization | | | | + +---------+ + + | [facility] | | | | + +---------+ + + CT Head wo Contrast (08/01/2019 1:20 PM PDT) + + | Specimen | + + | | + + + + + | Impressions | Performed At | + + + | No CT evidence for an acute intracranial process. Evidence of | [facility] | | multiple remote infarcts. No CT evidence for an acute cervical | | | spine fracture or traumatic malalignment. Multilevel spondylosis | | | contributing to central spinal canal and neural foraminal narrowing. | | | Dictated and Signed by: Edwin Jarrell MD Electronically | | | signed: 08/01/2019 1:33 PM | | + + + + + + | Narrative | Performed At | + + + | EXAM: CT CERVICAL SPINE WO CONTRAST, CT HEAD WO CONTRAST dated | [facility] | | 08/01/2019 1:20 PM HISTORY: Neck trauma (Age > 65y) | | | Comparison: CT head and cervical spine 06/28/2019 TECHNIQUE: | | | Noncontrast CT is performed from the top of calvarium through the | | | skull base. Coronal and sagittal reformats are performed. | | | Noncontrast imaging is performed from the skull base through the | | | cervicothoracic junction. DOSE: DLP 806.32 mGy-cm FINDINGS: | | | HEAD: BRAIN: Ventricles, sulci and cisterns are unremarkable | | | for age No areas of increased attenuation to suggest intracranial | | | hemorrhage. There is no mass, mass effect, or midline shift. | | | There are no abnormal extra-axial fluid or air collections. There | | | is preservation of the benitez-white differentiation at this time. | | | There is moderate patchy to confluent decreased density in the | | | periventricular and subcortical white matter. Focal hypodensities in | | | the basal ganglia bilaterally and subinsular region on the left | | | consistent with remote ischemia. Encephalomalacia in the left | | | occipital lobe. This is either from remote trauma or ischemia. | | | SCALP/ CALVARIUM: Stable calcification in the posterior right | | | parietal scalp. No calvarial fracture. SINUSES / ORBITS/ | | | MASTOIDS: The visible mastoid air cells and paranasal sinuses are | | | clear. The globes and retroconal contents are intact and are | | | unremarkable. CERVICAL SPINE: There is acceptable alignment | | | from the craniocervical junction through the cervicothoracic | | | junction. Alignment is stable. Anterolisthesis of C3, C4, and C7. | | | Retrolisthesis of C5 and C6. There is no widening of the disc | | | spaces. There is no widening of the facets. There are no visible | | | acute fractures. The facet spacing is minimally prominent | | | bilaterally at C5-C6. This is unchanged. There are lucencies | | | involving the lamina bilaterally at C2. These are unchanged. | | | These are related to vascular channels. There is multilevel | | | central spinal canal and neural foraminal narrowing due to facet | | | arthrosis and uncinate hypertrophy. No mass effect upon the airway. | | | No visible pneumothorax. | | + + + + + | Procedure Note | + + | Kobe, Rad Results In - 08/01/2019 1:36 PM PDT EXAM: CT CERVICAL SPINE WO CONTRAST, CT | | HEAD WO CONTRAST dated 08/01/2019 1:20PMHISTORY: Neck trauma (Age > 65y)Comparison: CT | | head and cervical spine 06/28/2019TECHNIQUE: Noncontrast CT is performed from the top of | | calvarium through theskull base. Coronal and sagittal reformats are performed. | | Noncontrast imagingis performed from the skull base through the cervicothoracic | | junction.DOSE: DLP 806.32 mGy-cmFINDINGS: HEAD:BRAIN: Ventricles, sulci and cisterns | | are unremarkable for age No areas ofincreased attenuation to suggest intracranial | | hemorrhage. There is no mass,mass effect, or midline shift. There are no abnormal | | extra-axial fluid or aircollections. There is preservation of the benitez-white | | differentiation at thistime. There is moderate patchy to confluent decreased density in | | theperiventricular and subcortical white matter. Focal hypodensities in the | | basalganglia bilaterally and subinsular region on the left consistent with | | remoteischemia. Encephalomalacia in the left occipital lobe. This is either fromremote | | trauma or ischemia. SCALP/ CALVARIUM: Stable calcification in the posterior right | | parietal scalp. No calvarial fracture.SINUSES / ORBITS/ MASTOIDS: The visible mastoid | | air cells and paranasal sinusesare clear. The globes and retroconal contents are intact | | and are unremarkable.CERVICAL SPINE:There is acceptable alignment from the | | craniocervical junction through thecervicothoracic junction. Alignment is stable. | | Anterolisthesis of C3, C4, andC7. Retrolisthesis of C5 and C6. There is no widening of | | the disc spaces. There is no widening of the facets. There are no visible acute | | fractures. Thefacet spacing is minimally prominent bilaterally at C5-C6. This is | | unchanged. There are lucencies involving the lamina bilaterally at C2. These | | areunchanged. These are related to vascular channels. There is multilevel | | centralspinal canal and neural foraminal narrowing due to facet arthrosis and | | uncinatehypertrophy. No mass effect upon the airway. 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 The globes and retroconal contents are intact and are unremarkable. | | | |CERVICAL SPINE: | | | |There is acceptable alignment from the craniocervical junction through the | |cervicothoracic junction. Alignment is stable. Anterolisthesis of C3, C4, and | |C7. Retrolisthesis of C5 and C6. There is no widening of the disc spaces. | |There is no widening of the facets. There are no visible acute fractures. The | |facet spacing is minimally prominent bilaterally at C5-C6. This is unchanged. | |There are lucencies involving the lamina bilaterally at C2. These are | |unchanged. These are related to vascular channels. There is multilevel central | |spinal canal and neural foraminal narrowing due to facet arthrosis and uncinate | |hypertrophy. No mass effect upon the airway. No visible pneumothorax. | | | |IMPRESSION: | | | |No CT evidence for an acute intracranial process. | | | |Evidence of multiple remote infarcts. | | | |No CT evidence for an acute cervical spine fracture or traumatic malalignment. 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 | | | |Dictated and Signed by: Edwin Jarrell MD | | Electronically signed: 08/01/2019 1:33 PM | + + + +---------+ + [...] Primary | + + | Contusion of scalp, initial encounter | + + | Acute pain of right shoulder | + + | Right hip pain Pain in joint, pelvic region and thigh | + + documented in this encounter Additional Health Concerns + + + + | Infection | Noted Time | Resolved Time | + + + + | Methicillin-resistant Staphylococcus aureus | 06/08/2019 9:39 AM | | | | PDT | | + + + + documented as of this encounter"
--- OUTSIDE RECORDS SUMMARY | ~2020-03-14 | XMS | Encounter Summary ---
Demographics + + + | Address | [address] | | | [place] [address] | + + + | Home Phone [...] Team Providers + +------+ + | Care Talent Analyst Name | Role | Phone | [...] | | [address] [place] | [facility] [place] [address] | | | | | [place] [address] | | | | | | [phone] | | | +--------+ + + + [...] | | 2019 | Visit | | SPECIALIZED DEVELOPER [address] | | | | | | [place] | | | | | | [address] | | | | | | | | +--------+ + + + + | 04/11/ | Appointment | Radiology | Shawn Michael | | | 2019 | | | MD [address] | | | | | | [address] [place] | | | | | | [place], [place] [address] | | | | | | [phone] | | | | | | | | +--------+ + + + + | 04/13/ | Office | Cardiology | Shawn Michael | | 2019 | Visit | | MD [address] | | | | | | [address] [place] | | | | | | [place] [address] | | | | | | [phone] | | | | | | | | +--------+ + + + + documented as of this encounter Procedures + +--------+ + + + | Procedure Name | Priori | Date/Time | Associated Diagnosis | Comments | | | ty | | | | + +--------+ + + + | CT ABDOMEN PELVIS W | Routin | 10/11/2016 | | Results for this | | CONTRAST | e | 12:00 AM | | procedure are in the | | | | PST | | results section. | + +--------+ + + + documented in this encounter Results CT Abdomen Pelvis w Contrast (10/11/2016 12:00 AM PST) + + | Specimen | [...]
--- OUTSIDE RECORDS SUMMARY | ~2020-03-14 | XMS | Encounter Summary ---
Demographics + + + | Address | [address] | | | [place] [address] | + + + | Home Phone [...] Team Providers + +------+ + | Care Beater Machine Operator Name | Role | Phone [...] + + | 12/12/ | Telephone | [facility] | Kaylyn Rivas, | TCM - Hosp FU | | 2019 | | MEDICINE [facility] | [place] | | | | | [address] [place] | | | | | | [place] [address] | | | | | | [phone] | | | +--------+ + + + [...] | | 2020 | Visit | | SATELLITE PROJECT SITE MONITOR [address] | | | | | | [place] | | | | | | [address] | | | | | | | | +--------+ + + + + | 04/11/ | Appointment | Radiology | Shawn Michael | | | 2019 | | | MD [address] | | | | | | [address] [place] | | | | | | [place] [address] | | | | | | [phone] | | | | | | | | +--------+ + + + + | 04/13/ | Office | Cardiology | Shawn Michael | | 2019 | Visit | | MD [address] | | | | | | [address] [place] | | | | | | [place] [address] | | | | | | [phone] | | | | | | | [...]
--- OUTSIDE RECORDS SUMMARY | ~2020-03-14 | XMS | Encounter Summary ---
Demographics + + + | Address | [address] | | | [place] [address] | + + + | Home Phone [...] Team Providers + +------+ + | Care Commissary Superintendent Name | Role | Phone | + [...] | Coronary | Shawn | [address] | | | | | artery | MD Marcelino | [place], | | | | | disease | [address] | [place] | | | | | involving | St [place] | [address] | | | | | hopi | [place] | Phone: | | | | | coronary | [address] | [phone] | | | | | artery of | Phone: | Fax: | | | | | hopi heart | [phone] | [phone] | | | | | without | Fax: | | | | | | angina | [phone] | | | | | | pectoris | | | | | | | Acute on | | | | | | | chronic | | | | | | | diastolic | | | | | | | heart | | | | | | | failure | | | | | | | ([facility]) | | | | | | | Procedures | | | | | | | ECHO | | | | | | | Complete | | | + +--------+ + + + + Encounter Details +--------+ + + + + | Date | Type | Department | Care Team | Description | +--------+ + + + + | 12/21/ | Orders Only | [facility] | Shawn Michael | Coronary artery | | 2020 | | CARDIOLOGY [address] | MD Marcelino [address] | disease involving | | | | [address] [place], | [address] [place] | hop[place] coronary | | | | [place] [address] | [place] [address] | artery of hopi | | | | [phone] | [phone] | heart without angina | | | [...] | 2019 | Visit | | RN TRAUMA [address] | | | | | | [place] | | | | | | [address] | | | | | | | | +--------+ + + + + | 04/11/ | Appointment | Radiology | Shawn Michael | | | 2019 | | | MD [address] | | | | | | [address] [place] | | | | | | [place] [address] | | | | | | [phone] | | | | | | | | +--------+ + + + + | 04/13/ | Office | Cardiology | Shawn Michael | | | 2019 | Visit | | MD [address] | | | | | | [address] [place] | | | | | | [place] [address] | | | | | | [phone] | | | | | | | [...] 12/22/2019, Expires: | | | | | hopi coronary | 12/21/2020 | | | | | artery of hopi | | | | | | heart without angina | | | | | | pectoris Acute on | | | | | | chronic diastolic | | | | | | heart failure (HCC) | | + + +--------+ + + documented as of this encounter Visit Diagnoses + + | Diagnosis | + + | 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
--- OUTSIDE RECORDS SUMMARY | ~2020-03-14 | XMS | Encounter Summary ---
Demographics + + + | Address | [address] | | | [place] [address] | + + + | Home Phone [...] Team Providers + +------+ + | Care Chemical Weigher Name | Role | Phone | + [...] | +--------+ + + + + | 07/19/ | Telephone | [facility] | Nikolay, | Medication Question | | 2018 | | MEDICINE [address] [place] [address] | MD Candido | | | | | [facility] | [address] [place] [address] | | | | | [place] [address] | [place] [address] | | | | | [phone] | [phone] | | | | | | | [...] | | 2019 | Visit | | TRUST ADMINISTRATIVE ASSISTANT [address] | | | | | | [place] | | | | | | [address] | | | | | | | | +--------+ + + + + | 04/11/ | Appointment | Radiology | Shawn Michael | | | 2019 | | | MD [address] | | | | | | [address] [place] | | | | | | [place] [address] | | | | | | [phone] | | | | | | | | +--------+ + + + + | 04/13/ | Office | Cardiology | Shawn Michael | | | 2019 | Visit | | MD [address] | | | | | | [address] [place] | | | | | | [place] [address] | | | | | | [phone] | | | | | | | | +--------+ + + + + documented as of this encounter Visit Diagnoses + + | Diagnosis | + + | Poor appetite - Primary Anorexia | + + | Anxiety Anxiety state, unspecified | + + documented in this encounter Additional Health Concerns + + + + | Infection | Noted Time | Resolved Time | + + + + | Methicillin-resistant Staphylococcus aureus | 06/08/2019 9:39 AM | | | | PDT | | + + + + documented as of this encounter"
--- OUTSIDE RECORDS SUMMARY | ~2020-03-14 | XMS | Encounter Summary ---
Demographics + + + | Address | [address] | | | [place] [address] | + + + | Home Phone | | + + + | Preferred Language | Unknown | + + + | Marital Status | | + + + | Mandaeism Affiliation | Unknown | + + + | Race | Unknown | + + + | Ethnic Group | Unknown | + + + Author + + + | Author | [facility] | | | and [place] | + + + | Organization | [facility] [...] Providers + +------+ + | Care Assistant Department Manager Name | Role | Phone | [...] | +--------+ + + + + | 10/11/ | Home Care | [facility] [place] | Bernardo Souza | OT REASSESSMENT | | 2020 | Visit | [place] [address] | M, OT | (COUNT [place] 30 DAY) | | | | [place] | | | | | | [address] | | | | | | [phone] | | | +--------+ + + + [...] + + + | Blood Pressure | 110/54 | 10/11/2019 2:15 PM | | | | | PST | | + + + + + | Pulse | 95 | 10/11/2019 2:15 PM | | | | | PST | | + + + + + | Temperature | 36.2 C (97.2 F) | 10/11/2019 2:15 PM | | | | | PST | | + + + + + | Respiratory Rate | - | - | | + + + + + | Oxygen Saturation | 95% | 10/11/2019 2:15 PM | | | | | PST [...] [place] | | | | | | [address] | | | | | | | | +--------+ + + + + | 04/11/ | Appointment | Radiology | Shawn Michael | | 2019 | | | MD Marcelino [address] | | | | | | [address] | | | | | | [place] [address] | | | | | | [phone] | | | | | | | | +--------+ + + + + | 04/13/ | Office | Cardiology | Shawn Michael | | | 2019 | Visit | | MD Marcelino [address] | | | | | | [address] [place] | | | | | | [place] [address] | | | | | | [phone] | | | | | | | [...] HEP | NEEDGoal: HH OT HOME | | Patien | | | Description: | EXERCISE PROGRAM | | t | | | Instruct patient | (HEP) NEED | | refuse | | | and/or caregiver in | | | d | | | home exercise | | | | | | program. | | | | | + + +--------+--------+ + documented in this encounter"
--- OUTSIDE RECORDS SUMMARY | ~2020-03-14 | XMS | Encounter Summary ---
Demographics + + + | Address | [address] | | | [place] [address] | + + + | Home Phone | | + + + | Preferred Language | Unknown | + + + | Marital Status | | + + + | Rastafarian Affiliation | Unknown | + + + [...] Team Providers + +------+ + | Care Yarn Dyer Name | Role | Phone | + [...] | | | [address] [place] | [facility] [address] | | | | | [place] [address] | | | | | | [phone] | | | +--------+ + + + [...] | | 2019 | Visit | | LEATHER TANNER [address] | | | | | | [place] | | | | | | [address] | | | | | | | | +--------+ + + + + | 04/11/ | Appointment | Radiology | Shawn Michael | | | 2019 | | | MD [address] | | | | | | [address] [place] | | | | | | [place], [place] [address] | | | | | | [phone] | | | | | | | | +--------+ + + + + | 04/13/ | Office | Cardiology | Shawn Michael | | 2019 | Visit | | MD [address] | | | | | | [address] [place] | | | | | | [place] [address] | | | | | | [phone] | | | | | | | | +--------+ + + + + documented as of this encounter Procedures + +--------+ + + + | Procedure Name | Priori | Date/Time | Associated Diagnosis | Comments | | | ty | | | | + +--------+ + + + | CT RENAL STONE WO | Routin | 04/01/2019 | | Results for this | | CONTRAST | e | 12:00 AM | | procedure are in the | | | | PDT | | results section. | + +--------+ + + + documented in this encounter Results CT Renal Stone Wo Contrast (04/01/2019 12:00 AM PDT) + + | Specimen [...]
--- OUTSIDE RECORDS SUMMARY | ~2020-03-14 | XMS | Encounter Summary ---
Demographics + + + | Address | [address] | | | [place] [address] | + + + | Home Phone | | + + + | Preferred Language | Unknown | + + + | Marital Status | | + + + | Zoroastrian Affiliation | Unknown | + + + | Race | Unknown | + + + | Ethnic Group | Unknown | + + + Author + + + | Author | [facility] | | | and [place] | + + + | Organization | [facility] | | | and [...] Team Providers + +------+ + | Care Key Account Manager Name | Role | Phone | [...] [place] | | | | | | [address] | | | | | | [phone] | | | +--------+ + + + [...] [place] | | | | | | [address] | | | | | | | | +--------+ + + + + | 04/11/ | Appointment | Radiology | Shawn Michael | | | 2019 | | | MD Marcelino [address] | | | | | | [address] | | | | | | [place] [address] | | | | | | [phone] | | | | | | | | +--------+ + + + + | 04/13/ | Office | Cardiology | Shawn Michael | | | 2020 | Visit | | MD Marcelino [address] | | | | | | [address] | | | | | | [place] [address] | | | | | | [phone] | | | | | | | [...]
--- OUTSIDE RECORDS SUMMARY | ~2020-03-14 | XMS | Encounter Summary ---
Demographics + + + | Address | [address] | | | [place] [address] | + + + | Home Phone | | + + + | Preferred Language | Unknown | + + + | Marital Status | | + + + | Anabaptist Affiliation | Unknown | + + + | Race | Unknown | + + + | Ethnic Group | Unknown | + + + Author + + + | Author | [facility] | | | and [place] | + + + | Organization | [facility] | | | [...] Providers + +------+ + | Care Talent Director Name | Role | Phone | + +------+ + | Candido Link | PCP | | | MD | | | + +------+ + Reason for Visit + + + | Reason | Comments | + + + | Imaging Only | | + + + Encounter Details +--------+ + + + + | Date | Type | Department | Care Team | Description | +--------+ + + + + | 07/02/ | Telephone | [facility] | Nikolay, | Imaging Only | | 2019 | | MEDICINE [address] | MD Candido | | | | | [facility] | [address] [place] [address] | | | | | [place] [address] | [place] [address] | | | | | [phone] | [phone] | | | | | | | [...] | | 2019 | Visit | | STUDENT FINANCE ADVISOR [address] | | | | | | [place] | | | | | | [address] | | | | | | | | +--------+ + + + + | 04/11/ | Appointment | Radiology | Shawn Michael | | | 2019 | | | MD [address] | | | | | | [address] [place] | | | | | | [place] [address] | | | | | | [phone] | | | | | | | | +--------+ + + + + | 04/13/ | Office | Cardiology | Shawn Michael | | 2019 | Visit | | MD [address] | | | | | | [address] [place] | | | | | | [place] [address] | | | | | | [phone] | | | | | | | [...]
--- OUTSIDE RECORDS SUMMARY | ~2020-03-14 | XMS | Encounter Summary ---
Demographics + + + | Address | [address] | | | [place] [address] | + + + | Home Phone [...] + +------+ + | Care Professor Of Nursing Name | Role | Phone | + [...] | | | | | | | ([facility]) | | | +--------+--------+ + + + + Encounter Details +--------+ + + + + | Date | Type | Department | Care Team | Description | +--------+ + + + + | 07/20/ | Hospital | [facility] | Corbin Hastings MD | Pneumonia due to | | 2019 - | Encounter | [facility] | [address] | infectious organism, | | | | [address] [place] | [place] | unspecified | | 07/24/ | | [place] [address] | [id number] | laterality, | | 2019 | | [phone] | | unspecified part of | | | | | José Miguel Napier | lung (Primary Dx); | | | | | MD Mine [address] | Sepsis, due to | | | | | [address] [place] | unspecified | | | | | [place] [address] | organism, | | | | | [phone] | unspecified whether | | | | | | acute organ | | | | | Sam Valladares, | dysfunction present | | | | | [address] | (HCC); COPD | | | | | [place] | exacerbation (HCC); | | | | | [address] | Severe | | | | | [phone] | protein-calorie | | | | | [...] whether | | | | | | [place] or | | | | | | [...] Generalized anxiety disorder 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 Specialty: Internal Medicine Why: This is your hospital follow up appointment, scheduled for 10:00, Please check in at 9:45. Contact information: [facility] [place] [address] Contact information for after-discharge care Placement Destination [facility] . Service: [facility] Contact [facility] [address] [facility] [address] Discharge Readmit Medications (From admission, onward) None Studies With Pending Results: None Greater than 30 minutes were spent on discharge and coordination of post-hospital care. Electronically signed by: Sam Valladares MD, 07/24/2019 16:23 [facility] documented in this encounter Medications at [...] might be different fro m the original. [facility]G Hospitalist Progress Note Ángela Crowley is a 88 y.o. female ASSESSMENT and PLAN: Active Hospital Problems Diagnosis Pneumonia of right lower lobe due to infectious organism Generalized anxiety disorder Severe protein-calorie malnutrition *COPD exacerbation Coronary artery disease involving [place] coronary artery of [place] heart without angina pectoris Resolved Hospital Problems [...] Plan to discharge to SNF, family prefers [facility] Prophylaxis : enoxaparin SUBJECTIVE: Continues to have [...] minimal edema Neurological: Oriented x 3, appropriate, EWIIAAPAAYP Ceja catheter present: No DIAGNOSTIC STUDIES: Available [...] outlined above. Yoly Robles RN 07/24/2019 10:59 [facility] Sam Durham MD - 07/23/2019 3:[address] [facility] PMG Hospitalist Progress Note Ángela Crowley [...] Plan to discharge to SNF, family prefers [facility] Prophylaxis : enoxaparin SUBJECTIVE: Continues to have [...] minimal edema Neurological: Oriented x 3, appropriate, EWIIAAPAAYP Ceja catheter present: No DIAGNOSTIC STUDIES: Available [...] outlined above. Sam Valladares MD 07/23/2019 15:23 [facility] each, Sam Galarza MD - 07/22/2019 5:[address] [facility] PMG Hospitalist Progress Note Ángela Crowley [...] occasional cough Abdomen: Soft, NT Extremities: WWP EWIIAAPAAYP, but alert and appropriate, vague historian Ceja [...] outlined above. Sam Valladares MD 07/22/2019 17:18 [facility] olph, Raymon Obrien [facility] - 07/22/2019 4:51 PM PDT PHARMACY SERVICES: ADMISSION MEDICATION REVIEW Ágnela Crowley is a 88 y.o. female admitted [...] Millan ? Pharmacy list names: [facility]- ? State Prescription Monitoring Program ([place]) ? [employer] insurance reported information ? Care Everywhere ? Outside Information ? Other sources: Verbal interview with son, Yadiel, who manages medications. Vaccines up to date? Influenza No Pneumococcal Yes- Son states patient is due for the "other" vaccine but he does not know wh ich one. Tdap Unsure Shingles Unsure Noted medications discrepancies or medication-related issues: Dosage/Form/Frequency change: AVIATION PROGRAM MANAGER Medication: Prior to Admission Sig: Correct [...] Prior to Admission Sig: Patient taking differently AVIATION PROGRAM MANAGER as: Buspirone 10 mg tab 1 tab by mouth daily Not taking Son states Dr. Millan told him to discontinue this medication when starting the Mirtazap ine. Best possible AVIATION PROGRAM MANAGER medication list after pharmacy review: PT [...] by mouth 2 times millie ly. Taking [facility] nitroglycerin (NITROSTAT) 0.4 mg [...] performed and electronically signed by Ly Guido, Mexican Food Cook 16:27 Electronically signed by: Raymon Patel RPH 07/22/2019 16:50 Sam Durham MD - 07/21/2019 6:[address] [facility] PMG Hospitalist Progress Note Ángela Crowley [...] NT Extremities: WWP Neurological: No acute distress, EWIIAAPAAYP, pleasant and appropriate Ceja catheter present: No [...] outlined above. Sam Valladares MD 07/21/2019 18:17 [facility] Balaji Zavaleta RN - 07/20/2019 7:20 [...] | | 2019 | Visit | | MOLDING MACHINE OPERATOR HELPER [address] | | | | | | [place] | | | | | | [address] | | | | | | | | +--------+ + + + + | 04/11/ | Appointment | Radiology | Shawn Michael | | | 2019 | | | MD [address]ynor [address] | | | | | | [address] [place] | | | | | | [place] [address] | | | | | | [phone] | | | | | | | | +--------+ + + + + | 04/13/ | Office | Cardiology | Shawn Michael | | | 2019 | Visit | | MD [address]yn[address] | | | | | | [address] [place] | | | | | | [place] [address] | | | | | | [phone] | | | | | | | [...] + | [facility] | [address] | [place] | [phone] | | [facility] | | [address] | | | - LABORATORY | | [...] mL/min/1.73m2 | [facility] | | | MALIAN | RATE,ESTIMATED | | MEDICAL | | | | mL/min/1.24v8Tqtt than | | CENTER - | | [...] [address] | [place] | [phone] | | [facility] | | [address] | | | - LABORATORY | | [...] [address] | [place] | [phone] | | [facility] | | [address] | | | - LABORATORY | | [...] mL/min/1.73m2 | [facility] | | | MALIAN | RATE,ESTIMATED | | MEDICAL | | | | mL/min/1.03a0Swcs than | | CENTER - | | [...] + | [facility] | [address] | [place] | [phone] | | [facility] | | [address] | | | - LABORATORY | | [...] [address] | [place] | [phone] | | [facility] | | [address] | | | - LABORATORY | | [...] | 0.84 | 0.55 - 1.02 | [facility] | | | | | mg/dL | [facility] | | | | | | MEDICAL | | | | | | CENTER - | | | | | | LABORATORY | | + + + + + + | eGFR if not | >60Comment: GLOMERULAR | >=60 | [facility] | | | | FILTRATION | mL/min/1.73m2 | [facility] | | | MALIAN | RATE,ESTIMATED | | MEDICAL | | | | mL/min/1.29p8Dmco than | | CENTER - | | [...] [address] | [place] | [phone] | | [facility] | | [address] | | | - LABORATORY | | [...] 424 | | | MAUREEN Patient Number [id number] Date of Study | | | 07/21/2019 Visit Number [id number] Referring | | | Physician MARIJA AVILA | | | MINE Accession | | | [id number] Digital Account Executive YAS FOSTER [facility] | | | Number Date of 1930 Interpreting | | | GLENDA MICHAEL MD | | | Physician Age 88 year(s) Nurse | | | Gender Female Stress Vocational Adviser | | | Procedure Type of Study TTE procedure:ECHO Limited. Procedure | | | DateDate: 07/21/2019 Start: 05:49 PM Study Location: [facility] | | | Quality: Adequate visualization Indications:S/p TAVR (transcatheter | | | aortic valve replacement), xldcrrhdwvtciN95.3/V42.2. Patient Status: | | | Routine Height: [...] Number [id number] | | MAUREEN Patient Number [id number] Date of Study 07/21/2019 Visit | | Number [id number] Referring Physician MARIJA AVILA | | MINE Digital Account Executive | | YAS FOSTER, [facility] Number Date of 1930 Interpreting | | GLENDA MICHAEL MD Physician Age 88 | | year(s) Nurse Gender Female Stress TechnicianProcedureType | | of Study TTE procedure:ECHO Limited.Procedure DateDate: 07/21/2019 Start: 05:49 PMStudy | | Location: [facility] Quality: Adequate visualizationIndications:S/p TAVR | | (transcatheter aortic valve replacement), xnpmamhhkrtoyE31.3/V42.2.Patient Status: | | RoutineHeight: 65 inches Weight: [...] [address] | [place] | [phone] | | [facility] | | [address] | | | - LABORATORY | | [...] + | [facility] | [address] | [place] | [phone] | | [facility] | | [address] | | | - LABORATORY | | [...] + | [facility] | [address] | [place] | [phone] | | [facility] | | [address] | | | - LABORATORY | | [...] [facility] | | | MALIAN | RATE,ESTIMATED | | MEDICAL | | | | mL/min/1.16e7Maxw than | | CENTER - | | [...] [address] | [place] | [phone] | | [facility] | | [address] | | | - LABORATORY | | [...] + | [facility] | [address] | [place] | [phone] | | [facility] | | [address] | | | - LABORATORY | | [...] [address] | [place] | [phone] | | [facility] | | [address] | | | - LABORATORY | | [...] | | | | aureus,Methicillin | | [facility] | | | | resistant [...] | [address] | [place] | [phone] | | [facility] | | [address] | | | - LABORATORY | | [...] | REFERENCE | | | | of [employer] | | LAB [facility] | | | | standards require a | | - BKR | | | | culture to beperformed | | | | | | on CSF specimens | | | | | | submitted for bacterial | | | | | | antigen testing.(CAP | | | | | | PATRICIA.[id number]) Urine | | | | | | specimens will not be | | | | | | cultured. | | | | + + + + + + + + | Specimen | + + | Urine | + + + + + | Narrative | Performed At | + + + | Performed at: 01 - [facility] [place] [address], | REFERENCE LAB | | [place] [id number] Electricians Top Helper: Varinder Negron MD, Phone: | REJI CHAVEZ | | [phone] | | + + + + + + + + | Performing | Address | City/State/Zipcode | Phone Number | | Organization | | | | + + + + + | REFERENCE LAB | [address] [facility] [address] | [place], [place] | [phone] | | REJI CHAVEZ | [facility] | [address] | | + + + + + [...] + + | Performed at: 01 - [facility] [address], | REFERENCE LAB | | [place], [place] [id number] Electric[employer] Top Helper: Leonid Leroy MD, Phone: | RE[facility] | | [phone] | | + + + + + + + + | Performing | Address | City/State/Zipcode | Phone Number | | Organization | | | | + + + + + | REFERENCE LAB | [address] | [place] | [phone] | | [facility] | [address] | [address] | | + + + + + [...] - 1.030 | [facility] | | | [place], | | | [address] [facility] | | [...] [address] | [place] | [phone] | | [facility] | | [address] | | | - LABORATORY | | [...] [address] | [place] | [phone] | | [facility] | | [address] | | | - LABORATORY | | [...] [address] | [place] | [phone] | | [facility] | | [address] | | | - LABORATORY | | [...] [facility] | | | | | | [facility] [...] + | [facility] | [address] | [place] | [phone] | | [facility] | | [address] | | | - LABORATORY | | [...] | | | | | | [employer] | | | | | [...] [address] | [place] | [phone] | | [facility] | | [address] | | | - LABORATORY | | [...] mL/min/1.73m2 | [facility] | | | MALIAN | RATE,ESTIMATED | | MEDICAL | | | | mL/min/1.02w2Cxzh than | | CENTER - | | [...] + | [facility] | [address] | [place] | [phone] | | [facility] | | [address] | | | - LABORATORY | | [...] | [address] | [place] | [phone] | | [facility] | | [address] | | | - LABORATORY | | [...] lead | | | | | | [id number] by UMESH | | | | | | LEONIDAS JOSEPH ([id number]) on | | | | | | [...] or lesion | | type, unspecified whether [place] or transplanted heart | + + | Essential hypertension Unspecified essential hypertension | + + | Anxiety Anxiety state, unspecified | + + | Depression, unspecified depression type | + + | Generalized osteoarthritis Generalized osteoarthrosis, unspecified site | + + | care home prescription opiate use | + + | Pneumonia of right lower lobe due to Pseudomonas species (HCC) | + + | Coronary artery disease involving [place] coronary artery of [place] heart without | | angina pectoris | [...]
--- OUTSIDE RECORDS SUMMARY | ~2020-03-14 | XMS | Encounter Summary ---
Demographics + + + | Address | [address] | | | [place] [address] | + + + | Home Phone [...] Team Providers + +------+ + | Care Bacteriology Professor Name | Role | Phone | [...] | 03/06/ | Home Care | [facility] [place] | Wanda Barbosa, | SN DISCHARGE (AFTER | | 2019 | Visit | [place] [address] | RN | TRANSFER NO DANIELLA/ONE | | | | [place] | | TIME OPEN) | | | | [address] | | | | | | [phone] | | | +--------+ + + + [...] | | | | | [place] [address] | | | | | | [phone] | | | | | | | | +--------+ + + + + | 04/13/ | Office | Cardiology | Shawn Michael | | | 2019 | Visit | | MD Marcelino [address] | | | | | | [address] [place] | | | | | | [place] [address] | | | | | | [phone] | | | | | | | [...] + | Visit Type - SN - DISCHARGE | | Discipline - Intermediate | + + + + +--------+--------+-------+ + [...] | | | | n | | Intermediate | | | | | scheduled/d | [...] | | Active | | | | Intermediate | | 020 | | | interventio [...] | | | Description: | Management | Comple | | | | Cleanse wound with | | yoel | | | | wound cleanser, or [...]
--- OUTSIDE RECORDS SUMMARY | ~2020-03-14 | XMS | Encounter Summary ---
Demographics + + + | Address | [address] | | | [place] [address] | + + + | Home Phone [...] Team Providers + +------+ + | Care Shipmaster Name | Role | Phone | + [...] 12/01/ | Home Care | [facility] [place] | Linda Laughlin, | SN TRSFR W/OUT D/C | | 2019 | Visit | [place] [address] | RN | ([place]) | | | | [place] | | | | | | [address] | | | | | | [phone] | | | +--------+ + + + [...] [place] | | | | | | [id number] | | | | | | | | +--------+ + + + + | 04/11/ | Appointment | Radiology | Shawn Michael | | 2019 | | | MD Marcelino [address] | | | | | | [address] | | | | | | [place] [address] | | | | | | [phone] | | | | | | | | +--------+ + + + + | 04/13/ | Office | Cardiology | Maxood, Shawn | | | 2019 | Visit | | MD Marcelino [address] | | | | | | [address] [place] | | | | | | [place] [address] | | | | | | [phone] | | | | | | | [...] TRANSFER W/OUT D/C | | Discipline - Senior Care | + + + + +--------+--------+-------+ + [...] | | | n | | Senior Care | | | | | scheduled/d | [...] | Active | | | | Senior Care | | 020 | | | interventio [...]
--- OUTSIDE RECORDS SUMMARY | ~2020-03-14 | XMS | Encounter Summary ---
Demographics + + + | Address | [address] | | | [place] [address] | + + + | Home Phone [...] Team Providers + +------+ + | Care Library Director Name | Role | Phone | [...] 2018 | Visit | [place] [address] | [place] | | | | | [place] | | | | | | [address] | | | | | | [phone] | | | +--------+ + + + [...] + + + | Blood Pressure | 124/74 | 07/05/2019 11:15 AM | | | | | PDT | | + + + + + | Pulse | 68 | 07/05/2019 11:15 AM | | | | | PDT | | + + + + + | Temperature | 36.3 C (97.4 F) | 07/05/2019 11:15 AM | | | | | PDT | | + + + + + | Respiratory Rate | 16 | 07/05/2019 11:15 AM | | | | | PDT | | + + + + + | Oxygen Saturation | 96% | 07/05/2019 11:15 AM | | | | | [...] [place] | | | | | | [address] | | | | | | | | +--------+ + + + + | 04/11/ | Appointment | Radiology | Shawn Michael | | | 2019 | | | MD Marcelino [address] | | | | | | [address] | | | | | | [place] [address] | | | | | | [phone] | | | | | | | | +--------+ + + + + | 04/13/ | Office | Cardiology | Zacharynnamdi Shawn | | | 2019 | Visit | | MD Marcelino [address] | | | | | | [address] [place] | | | | | | [place] [address] | | | | | | [phone] | | | | | | | [...] - REPEAT VISIT | | Discipline - Mcc | + + + + +--------+--------+-------+ + | Problem | Description | Start | Status | Goals | Interventio | | | | Date | | | ns | + + +--------+--------+-------+ + | HH [place] | | | | - | 1 problem | | Disciplines: | | 06/13/20 | Active | | | | Mcc, | | 19 | | | interventio [...] 06/13/20 | Active | | | | Mcc | | 19 | | | interventio [...] 19 | | | interventio | | Mcc | | | | | n | [...] | | | | n | | Mcc | | | | | scheduled/d | [...] | | | | n | | Mcc | | | | | scheduled/d | | | | | | | ocumented | | | | | | | in this | | | | | | | visit | + + +--------+--------+-------+ + | Respiratory Status | COPD & CHF | | | - | 3 problem | | Disciplines: | | 06/13/20 | Active | | | | Mcc | | 19 | | | interventio [...] oxygen | Problem: Respiratory | | | Pt less SoB today and | | saturation | Status | Comple | | maintaining on 2 Liters | | | | yoel | | | + + +--------+--------+ + documented in this encounter"
--- OUTSIDE RECORDS SUMMARY | ~2020-03-14 | XMS | Encounter Summary ---
Demographics + + + | Address | [address] | | | [place] [address] | + + + | Home Phone [...] Team Providers + +------+ + | Care Dishtank Operator Name | Role | Phone | [...] | 09/16/ | Home Care | [facility] [place] | Wanda Barbosa, | SN REPEAT VISIT | | 2018 | Visit | [place] [address] | [place] | | | | | [place] | | | | | | [address] | | | | | | [phone] | | | +--------+ + + + [...] + + + | Blood Pressure | 120/68 | 09/16/2019 10:45 AM | | | | | PST | | + + + + + | Pulse | 82 | 09/16/2019 10:45 AM | | | | | PST | | + + + + + | Temperature | 36.8 C (98.3 F) | 09/16/2019 10:45 AM | | | | | PST | | + + + + + | Respiratory Rate | 18 | 09/16/2019 10:45 AM | | | | | PST | | + + + + + | Oxygen Saturation | 96% | 09/16/2019 10:45 AM | | | | | PST [...] [place] | | | | | | [address] | | | | | | | | +--------+ + + + + | 04/11/ | Appointment | Radiology | Shawn Michael | | | 2019 | | | MD Marcelino [address] | | | | | | [address] | | | | | | [place] [address] | | | | | | [phone] | | | | | | | | +--------+ + + + + | 04/13/ | Office | Cardiology | Zacharynnamdi Shawn | | | 2019 | Visit | | MD Marcelino [address] | | | | | | [address] [place] | | | | | | [place] [address] | | | | | | [phone] | | | | | | | [...] - REPEAT VISIT | | Discipline - Retirement | + [...] 2018 | | | interventio | | Retirement | infusion. 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 [...] SHARED | | | Pt inst to ambulate | | Prevention | FALLSGoal: FALL | Comple | | with SBA at all times | | Description: | PREVENTION | yoel | | and with walker. | | Instruct the patient | UNDERSTANDING [...] Problem: SHARED | | | See pain assessment | | Address Pain | PAINGoal: PAIN [...] +--------+--------+ + | Assess side | Problem: HH SN | | | Evaluate the | | effects and response | Medication | Comple | | effectiveness of the | | to medications | ManagementGoal: HH | yoel | | current treatment | [...] | | | | | and provide [facility] | | | | | | CHF [...] See clinical | | status | StatusGoal: HH SN | Comple | | assessment in [...] | | Instructed patient and | | Description: | StatusGoal: HH SN | Comple | | caregiver in the use of | | Instruct the patient | RESPIRATORY | yoel | | home oxygen therapy, | | and/or caregiver in | | | | safe/proper use of | | use of home oxygen | | | | equipment, and | | therapy, safe/proper | | | | precautions. The | | use of equipment, | | | | patient and/or caregiver | | and precautions. | | | | verbalized | | Physician ordered | | | | understanding of home | | home oxygen: 3L/min. | | | | oxygen therapy as | | | | | | instructed:Yes. | + + +--------+--------+ + documented in this encounter"
--- OUTSIDE RECORDS SUMMARY | ~2020-03-14 | XMS | Encounter Summary ---
Demographics + + + | Address | [address] | | | [place] [address] | + + + | Home Phone [...] Team Providers + +------+ + | Care [employer] Name | Role | Phone | + [...] [address] | [address] [facility] | | | | | [place] | [place] [address] | | | | | [address] | [phone] | | | | | [phone] | | | +--------+ + + + [...] [place] | | | | | | [address] | | | | | | | | +--------+ + + + + | 04/11/ | Appointment | Radiology | Shawn Michael | | 2019 | | | MD Marcelino [address] | | | | | | [address] | | | | | | [place] [address] | | | | | | [phone] | | | | | | | | +--------+ + + + + | 04/13/ | Office | Cardiology | Shawn Michael | | | 2019 | Visit | | MD Marcelino [address] | | | | | | [address] [place] | | | | | | [place] [address] | | | | | | [phone] | | | | | | | [...] | | | ocumented | | | Correction, | | | | interventio | | | Physical Therapy, | | | | n | | | Occupational | | | | | | | Therapy, Case | | | | | | | Rn Diabetes, Physical | | | | | | | Business Performance Specialist | | | | | | + [...]
--- OUTSIDE RECORDS SUMMARY | ~2020-03-14 | XMS | Encounter Summary ---
Demographics + + + | Address | [address] | | | [place] [address] | + + + | Home Phone [...] Team Providers + +------+ + | Care System Technologist Name | Role | Phone | [...] [place] | | | | | | [address] | | | | | | [phone] | | | +--------+ + + + [...] +---------+ + + | Blood Pressure | 102/56 | 09/20/2019 11:30 AM | | | | | PST | | + +---------+ + + | Pulse | 62 | 09/20/2019 11:30 AM | | | | | PST | | + +---------+ + + | Temperature | - | - | | + +---------+ + + | Respiratory Rate | 18 | 09/20/2019 11:30 AM | | | | | [...] | | 2019 | Visit | | MATERIAL ATTENDANT [address] | | | | | | [place] | | | | | | [address] | | | | | | | | +--------+ + + + + | 04/11/ | Appointment | Radiology | Shawn Michael | | | 2019 | | | MD [address] | | | | | | [address] [place] | | | | | | [place] [address] | | | | | | [phone] | | | | | | | | +--------+ + + + + | 04/13/ | Office | Cardiology | Shawn Michael | | | 2019 | Visit | | MD [address] | | | | | | [address] [place] | | | | | | [place] [address] | | | | | | [phone] | | | | | | | [...] Plan + + | Visit Type - BUSINESS PROJECT MANAGER - REPEAT VISIT | | Discipline - Home Health Aide | + + + + +--------+--------+ + + | Problem | Description | Start | Status | Goals | Interventio | | | | Date | | | ns | + + +--------+--------+ + + | HH Aide Need | BUSINESS PROJECT MANAGER services | | | 1 goal | 3 goal | | Disciplines: | needed | | Active | linked to | interventio | | Fdc, | | 019 | | scheduled/d | [...]
--- OUTSIDE RECORDS SUMMARY | ~2020-03-14 | XMS | Encounter Summary ---
Demographics + + + | Address | [address] | | | [place] [address] | + + + | Home Phone [...] Team Providers + +------+ + | [employer] Operator Name | Role | Phone | [...] Specialty | Home Health | Diagnoses | Valladares, | Prov Hh | | | Services | Services | COPD with | Sam H, | Chris Perez | | | Required | | acute | MD [address] | | | | | exacerbation | [address] | [place] | | | | | (HCC) | [place], | [place], [place] | | | | | [place] | [place] | [address]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 | [address] | Phone: | | | | | ([facility]) | Phone: | [phone] | | | | | Moderate | [phone] | Fax: | | | | | protein-bang | Fax: | [phone] | | | | | julieta | [phone] | | | | | | malnutrition | | | | | | | (HCC) | | | | | | | Pneumonia | | | | | | | due to | | | | | | | methicillin | | | | | | | resistant | | | | | | | Staphylococc | | | | | | | us aureus, | | | | | | | unspecified | | | | | | | laterality, | | | | | | | unspecified | | | | | | | part of lung | | | | | | | ([facility]) | | | +--------+ + + + + + Service/Procedure (Routine) +--------+--------+ + + + + | Status | Reason | Specialty | Diagnoses / | Referred By | Referred To | | | | | Procedures | Contact | Contact | +--------+--------+ + + + + | Closed | | DME | Diagnoses | Lina | | | | | | Impaired | MD Aida | | | | | | mobility | [address] | | | | | | Hypoxemia | [address] | | | | | | Procedures | [place] | | | | | | DME: [place] | [place] [address] | | | | | | | Phone: | | | | | | | [phone] | | | | | | | Fax: | | | | | | | [phone] | | +--------+--------+ + + + + Reason for Visit [...] | | | | | | COPD with | | | | | | | acute | | | | | | | exacerbation | | | | | | | (HCC) | | | | | | | Anemia | | | | | | | requiring | | | | | | | transfusions | | | | | | | Multifocal | | | | | | | pneumonia | | | | | | | | | | +--------+--------+ + + + + Encounter Details +--------+ + + + + | Date | Type | Department | Care Team | Description | +--------+ + + + + | 12/01/ | Hospital | [facility] | Raymon Daniel, | Impaired mobility | | 2019 - | Encounter | [facility] | [address] | (Primary Dx); Anemia | | | | [address] [place] | [place], [place] | requiring | | 12/09/ | | [place] [address] | [id number] | transfusions; COPD | | 2019 | | [phone] | | with acute | | | | | Sharon Robles MD | exacerbation (HCC); | | | | | [address] | Multifocal | | | | | [place] | pneumonia; | | | | | [id number] | Hypoxemia; | | | | | | 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 (HCC); | | | | | [address] | Moderate | | | | | [place], [place] | protein-calorie | | | | | [id number] | malnutrition (HCC); | | | | | | Pneumonia due to | | | | | | 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 | | | | | | Staphylococcus | | | | | | aureus, unspecified | | | | | | laterality, | | | | | | unspecified part of | | | | | | lung ([facility]) | +--------+ + + + + Social [...] + + + | Blood Pressure | 180/69 | 12/10/2019 7:51 AM | | | | | PST | | + + + + + | Pulse | 85 | 12/10/2019 11:59 AM | | | | | PST | | + + + + + | Temperature | 36.7 C (98.1 F) | 12/10/2019 7:51 AM | | | | | PST | | + + + + + | Respiratory Rate | 24 | 12/10/2019 11:59 AM | | | | | PST | | + + + + + | Oxygen Saturation | 97% | 12/10/2019 11:59 AM | | | | | PST | | + + + + + | Inhaled Oxygen | - | - | | | Concentration | | | | + + + + + | Weight | 52.1 kg (114 lb 13.8 | 12/10/2019 12:00 AM | | | | oz) | PST | | + + + + + | Height | 165.1 cm (5' 5") | 12/09/2019 11:37 PM | | | | | PST | | + + + + + | Body Mass Index | 19.11 | 12/09/2019 11:37 PM | | | | | PST | | + + + + + documented in this encounter Discharge Summaries Sam Valladares MD - 12/10/2019 11:14 AM PSTFormatting of this note might be different f rom the original. DISCHARGE SUMMARY Patient Name: Ángela Crowley : 1930 Date of Admission: 12/01/2019 Date of Discharge: 12/10/19 Admitting Physician: Aida Mills MD Discharging Physician: Sam Valladares MD Primary Care Provider: Candido Link MD Discharge Diagnoses: Principal Problem: Pneumonia due to methicillin resistant Staphylococcus aureus (MRSA) Active Problems: Decubitus ulcer of sacral region, stage 2 Coronary artery disease involving [place] coronary artery of [place] heart without angina p ectoris COPD (chronic obstructive pulmonary disease) Moderate protein-calorie malnutrition Resolved Problems: * No resolved hospital problems. * Consultants: None Procedures: 12/01 CXR: The lungs are symmetrically aerated. Prominence of the pulmonary vasculature. No consolidation. There are no large pleural effusions. There is no pneumothorax. The cardiac and mediastinal contours are stable. Enlarged central pulmonary arteries. Findings consistent with aortic valvular repair. No acute osseous abnormalities. IMPRESSION: Findings suggest pulmonary venous congestion. Prominent pulmonary arteries can indicate pulmonary hypertension. 12/[address]: IMPRESSION: 1. MUCOUS PLUGGING WITHIN RIGHT-SIDED AIRWAYS WITH EXTENSIVE CLUSTERED NODULARITY INVOLVING PORTIONS OF BOTH LUNGS AND PATCHY CONSOLIDATION/GROUND GLASS OPACITY IN THE UPPER LOBES, CONSISTENT WITH MULTIFOCAL LIKELY AIRWAY CENTERED INFECTION. A VERY SMALL RIGHT PLEURAL EFFUSION IS ALSO PRESENT. 2. VASCULAR CALCIFICATION WITH SIMILAR ASCENDING AORTIC DILATION UP TO A DIAMETER OF 4 CM, AND MAIN PULMONARY ARTERY ENLARGEMENT SUGGESTING PULMONARY ARTERIAL HYPERTENSION. 3. CHRONIC BILIARY DUCTAL DILATION. Multiple chest xrays includin/2 CXR: Findings: There is a right PICC line with tip at the cavoatrial junction. Heart size is at the upper limits of normal. There is atherosclerosis of the aorta. A stent is noted over the lower aorta. Central pulmonary vasculature is normal. Mild diffuse scarring are present of the bilateral lungs. Degenerative changes are noted of the shoulders. There is moderate spondylosis. IMPRESSION: No acute findings. No results found. Labs in the last 24 hours: Recent Results (from the past 24 hour(s)) Basic Metabolic Panel Result Value Ref Range Na 142 136 - 145 mmol/L K 3.8 3.4 - 5.1 mmol/L Cl 105 98 - 107 mmol/L CO2 34 (H) 20 - 31 mmol/L Anion Gap 3 3 - 16 mmol/L Glucose 82 60 - 106 mg/dL BUN 22 9 - 23 mg/dL Creatinine 0.63 0.55 - 1.02 mg/dL eGFR if not >60 >=60 mL/min/1.73m2 Calcium 8.1 (L) 8.7 - 10.4 mg/dL BUN/Creatinine Ratio 34.9 CBC with Differential Result Value Ref Range WBC 9.9 4.0 - 11.0 K/uL RBC 3.12 (L) 3.70 - 5.20 M/uL Hemoglobin 9.3 (L) 11.5 - 16.0 g/dL Hematocrit 30.4 (L) 34.0 - 47.0 % MCV 97.4 83.0 - 101.0 fL MCH 29.8 28.0 - 35.0 pg MCHC 30.6 (L) 32.0 - 36.0 g/dL RDW-CV 14.4 <15.0 % RDW-SD 50.8 (H) 35.1 - 46.3 fL Platelet Count 139 (L) 140 - 440 K/uL MPV 10.5 6.5 - 12.4 fL % Neutrophils 76.8 45.0 - 82.0 % % Lymphocytes 12.5 (L) 20.0 - 45.0 % % Monocytes 9.3 4.0 - 12.0 % % Eosinophils 1.0 0.0 - 5.0 % % Basophils 0.1 0.0 - 1.0 % % Immature Granulocytes 0.3 0.0 - 0.4 % Absolute Neutrophils 7.63 1.80 - 8.50 K/uL Absolute Lymphocytes 1.24 0.60 - 3.20 K/uL Absolute Monocytes 0.92 0.00 - 1.00 K/uL Absolute Eosinophils 0.10 0.00 - 0.40 K/uL Absolute Basophils 0.01 0.00 - 0.10 K/uL Absolute Immature Granulocytes 0.03 0.00 - 0.03 K/uL % nRBC 0 0 - 2 per 100 WBCs Absolute nRBC 0.00 0.00 - 0.01 K/uL Reason for Admission: Please refer to the H&P for full details. In short, this is a 89 y.o. female with a histor y of severe COPD/chronic respiratory failure with hypoxia who presented with weakness, acut e pneumonia. Problem-Oriented Hospital Course: BilateralMRSApneumonia/Rhinovirus upper respiratory tract infection/chronic respiratory failure with hypoxia: -CT scanshowed mucus plugging, patchy consolidations. -History of COPD/chronic respiratory failure with hypoxiawith 2-3L oxygen use at home, on chronic prednisone and budesonide use at home. 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 Transfused 1u PRBC 12/03. - HGB9.33/4,stable Gastritis history On PPI and famotidine. 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 Resumed aspirin . - Resumed furosemide 12/08 Urinary incontinence/retention Because of retention, Ceja cath placed 12/05, d/coxybutynin - Removed Ceja cath 12/07, urinating adequately at this point Depression/anxiety/depression Continue Lexapro Denied current symptoms. Sacral decub Continue wound care EssentialHypertension On low-dose carvedilol and metoprolol, labile butadequatecontrol.This is reportedly her home regimen. Moderate protein calorie malnutrition I attestthat this clinical assessment using ASPEN criteria 1is accurate for this patien t and supports that as a medical diagnosis.A specific nutrition treatment plan will be i mplemented as outlined in the registered dietitian's plan of care. Nutrition Diagnosis: Moderate protein-calorie malnutrition Type, Moderate: Chronic illness(COPD) Energy Intake: Less than or equal to 75% energy intake compared to estimated needs for grea ter than or equal to 1 month Body Fat: Moderate depletion (NFPE shows wasting orbital tricpes and ribs) Muscle Mass: Moderate depletion (NFPE shows wasting in temples, clavicles, shoulders) Code Status: Full Code. Discussed briefly with son Yadiel, he wishes for her to continue full code sta justynas, not interested in palliative care at this time. Disposition: Home with home health. Discharge Condition: Fair, alert, [place], poor historian Diminished BS throughout, breathing comfortably Heart RRR Abd soft, NT Ext WWP, no edema Follow-up Information Candido Link MD On 12/14/2019. Specialty: Internal Medicine Why: This is your hospital follow up appointment, scheduled for 10:00, Please check in at 9:45. Contact information: [address] [place] [phone] Discharge Medications New Medications Details albuterol 2.5 mg/3 mL nebulizer solution Take 3 mLs by nebulization every 4 hours as needed for Wheezing or Shortness of Breath. In perez 1-2 treatments in nebulizer every 20 minutes for 3 doses, then 1-4 treatments every 1-4 hours as needed Changed Medications Details budesonide 0.5 mg/2 mL nebulizer solution Take 2 mLs by nebulization 2 times daily. Dx Code J44.90 What changed: when to take this additional instructions aka: PULMICORT Unchanged Medications Details acetaminophen 325 mg tablet Take 2 tablets by mouth every 6 hours as needed for Pain (or fever >= 38.6 C (101.5 F)). aka: TYLENOL albuterol-ipratropium 2.5-0.5 mg/3 mL Soln Take 3 mLs by nebulization Every 4 hours. aspirin 81 mg chewable tablet Take 1 tablet by mouth Daily. atorvaSTATin 20 mg tablet Take 1 tablet by mouth every morning. aka: LIPITOR bacitracin 500 UNIT/GM ointment Apply 1 Application topically 3 times daily. to bedsore on buttocks benzonatate 100 mg capsule Take 1 capsule by mouth 3 times daily as needed for Cough. aka: TESSALON brimonidine 0.2% ophthalmic solution Place 1 drop into both eyes 2 times daily. aka: ALPHAGAN carvedilol 6.25 mg tablet Take 6.25 mg [...] daily. aka: NIZORAL latanoprost 0.005% ophthalmic solution Place 1 drop into both eyes nightly. aka: XALATAN metoprolol succinate 25 mg 24 hr tablet Take 1 tablet by mouth nightly. aka: TOPROL-XL MIRALAX packet Generic drug: polyethylene glycol Take 17 [...] 10 mg by mouth Daily. aka: DELTASONE PRESERVISION AREDS 2 Caps Take 1 capsule by mouth 2 times daily. prochlorperazine 10 mg tablet Take 1 tablet [...] for Heartburn or Indigestion. UNABLE TO FIND Adult Pull ups, medium size Discontinued Medications oxybutynin 10 MG 24 hr tablet aka: DITROPAN-XL Studies With Pending Results: None Greater than 30 minutes were spent on discharge and coordination of post-hospital care. Electronically signed by: Sam Valladares MD, 12/10/2019 11:14 AM [facility] documented in this encounter Discharge Instructions Instructions Sam Valladares MD - 12/01/2019You were admitted with exacerbation of your lung disease caused by a viral and bacterial infection. You were treated with a full course of antibiotics, and have no evidence of bacterial infection at this time. Please continue the budesonide nebulizer, and take albuterol nebulizer as needed for shortness of breath. C ontinue taking the furosemide to prevent fluid overload. It may take at least a week or 2 t o get back to your normal level of strength, and home health has been ordered to help you at home. Please stop taking the oxybutynin (Ditropan) because it can cause urinary retention. documented in this encounter Medications at Time [...] | | | | | | | ([facility]) | | | | | | + [...] documented as of this encounter Progress Notes Brittany Acosta RN - 12/10/2019 12:58 PM PSTAVS, including newly prescribed medicatio ns, s/s emergency/when to call MD, and follow-up instructions, thoroughly reviewed with pt a nd son. Questions answered. Pt left unit via WC with belongings in hand (including personal walker, purse, other belongings). Son to provide ride home. Josy, Sam Galarza MD - 12/09/2019 4:01 PM PSTFo rmatting of this note might be different from the original. [facility] Hospitalist Progress Note Ángela Crowley is a 89 y.o. female ASSESSMENT and PLAN: Active Hospital Problems Diagnosis *Pneumonia due to methicillin resistant Staphylococcus aureus (MRSA) Decubitus ulcer of sacral region, stage 2 Moderate protein-calorie malnutrition COPD (chronic obstructive pulmonary disease) Coronary artery disease involving [place] coronary artery of [place] heart without angina pectoris Resolved Hospital Problems No resolved problems to display. BilateralMRSApneumonia/Rhinovirus upper respiratory tract infection/chronic respiratory failure with hypoxia: -CT scanshowed mucus plugging, patchy consolidations. -History of COPD/chronic respiratory failure with hypoxiawith 2-3L oxygen use at home, on chronic prednisone and budesonide use at home. -Viral respiratory panel showed rhinovirus, sputum culture showed MRSA -Has been on vancomycin, symptoms improved, stop vancomycin, switched to doxycycline - Decreased prednisone from 40 to 20 mg, decreased again to the 10 mg she takes at home on 12/08 - Had 8 days of IV vancomycin, finish with 2 days of doxycycline, likely discharge tomorrow without antibiotics given 10 days of antibiotics, neg procalcitonin -Has shortness of breath which worsens with activity or anxiety, but chest x-ray on December 05 looks stable, no evidence of worsening disease, tolerating slightly more activity Chronic anemia 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 Transfused 1u PRBC 12/03. - HGB 9.0 12/07, stable Gastritis history On PPI and famotidine. 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 Resumed aspirin . - Resumed furosemide 12/08 Urinary incontinence/retention Because of retention, Ceja cath placed 12/05, d/coxybutynin - Removed Ceja cath 12/07, urinating adequately at this point Depression/anxiety Continue Lexapro Denied current symptoms. Sacral decub Continue wound care EssentialHypertension On low-dose carvedilol and metoprolol, labile but adequate control.This is reportedly h er home regimen. Moderate protein calorie malnutrition I attestthat this clinical assessment using ASPEN criteria 1is accurate for this patien t and supports that as a medical diagnosis.A specific nutrition treatment plan will be i mplemented as outlined in the registered dietitian's plan of care. Nutrition Diagnosis: Moderate protein-calorie malnutrition Type, Moderate: Chronic illness(COPD) Energy Intake: Less than or equal to 75% energy intake compared to estimated needs for grea ter than or equal to 1 month Body Fat: Moderate depletion (NFPE shows wasting orbital tricpes and ribs) Muscle Mass: Moderate depletion (NFPE shows wasting in temples, clavicles, shoulders) Disposition : PT/OT recommends SNF, or at least 24 hour care, but she states that she will only go home Prophylaxis: aspirin SUBJECTIVE: Reason for visit/Chief complaint: Shortness of breath, weakness Interval History: No acute shortness of breath. She states she is eating well. No chest p ain. Chronic back pain. No nausea or vomiting. Wants to go home, feels anxious in the hos pital. VITALS: Temp: 37.3 C (99.2 F), Pulse: 66, Resp: 18, BP: 164/72, SpO2 97 % on nasal cannula Temp Min: 36.7 C (98.1 F) Max: 37.3 C (99.2 F) Intake/Output Summary (Last 24 hours) at 12/09/2019 1601 Last data filed at 12/09/2019 1354 Gross per 24 hour Intake 670 ml Output 875 ml Net -205 ml First: 52.6 kg (12/09/19652)Last: 52.6 kg (12/09/19652)Difference: 0kg PHYSICAL EXAM: General: Frail, thin, chronically ill Neck: Supple Cardiovascular: Regular rate and rhythm Respiratory: Diminished breath sounds throughout with scattered rhonchi/crackles Abdomen: Soft, nontender Extremities: Warm and well-perfused without significant edema Neurological: Oriented to person and place, not time Ceja catheter present: No DIAGNOSTIC STUDIES: Available data and images were reviewed personally. Significant results and findings are a ddressed here or in the Assessment and Plan. Recent Results (from the past 24 hour(s)) Procalcitonin Result Value Ref Range Procalcitonin <0.05 <=0.50 ng/mL Comment Basic Metabolic Panel Result Value Ref Range Na 143 136 - 145 mmol/L K 3.9 3.4 - 5.1 mmol/L Cl 106 98 - 107 mmol/L CO2 33 (H) 20 - 31 mmol/L Anion Gap 4 3 - 16 mmol/L Glucose 76 60 - 106 mg/dL BUN 24 (H) 9 - 23 mg/dL Creatinine 0.64 0.55 - 1.02 mg/dL eGFR if not >60 >=60 mL/min/1.73m2 Calcium 7.9 (L) 8.7 - 10.4 mg/dL BUN/Creatinine Ratio 37.5 CBC with Differential Result Value Ref Range WBC 11.7 (H) 4.0 - 11.0 K/uL RBC 3.12 (L) 3.70 - 5.20 M/uL Hemoglobin 9.3 (L) 11.5 - 16.0 g/dL Hematocrit 31.3 (L) 34.0 - 47.0 % MCV 100.3 83.0 - 101.0 fL MCH 29.8 28.0 - 35.0 pg MCHC 29.7 (L) 32.0 - 36.0 g/dL RDW-CV 14.7 <15.0 % RDW-SD 54.2 (H) 35.1 - 46.3 fL Platelet Count 144 140 - 440 K/uL MPV 10.4 6.5 - 12.4 fL % Neutrophils 82.4 (H) 45.0 - 82.0 % % Lymphocytes 9.9 (L) 20.0 - 45.0 % % Monocytes 6.6 4.0 - 12.0 % % Eosinophils 0.5 0.0 - 5.0 % % Basophils 0.1 0.0 - 1.0 % % Immature Granulocytes 0.5 (H) 0.0 - 0.4 % Absolute Neutrophils 9.65 (H) 1.80 - 8.50 K/uL Absolute Lymphocytes 1.16 0.60 - 3.20 K/uL Absolute Monocytes 0.77 0.00 - 1.00 K/uL Absolute Eosinophils 0.06 0.00 - 0.40 K/uL Absolute Basophils 0.01 0.00 - 0.10 K/uL Absolute Immature Granulocytes 0.06 (H) 0.00 - 0.03 K/uL % nRBC 0 0 - 2 per 100 WBCs Absolute nRBC 0.00 0.00 - 0.01 K/uL No results found. acetaminophen, 650 mg, Oral, Q6H PRN albuterol-ipratropium, 3 mL, Nebulization, RT 4x DAILY aspirin, 81 mg, Oral, Daily atorvaSTATin, 20 mg, Oral, QAM bisacodyl, 10 mg, Rectal, Daily PRN brimonidine, 1 drop, Both Eyes, BID budesonide, 0.5 mg, Nebulization, RT BID calcium carbonate, 1,000 mg, Oral, Q8H PRN carvedilol, 6.25 mg, Oral, BID WC dicyclomine, 10 mg, Oral, Daily PRN docusate sodium, 500 mg, Oral, QAM dorzolamide, 1 drop, Both Eyes, BID doxycycline, 100 mg, Oral, BID escitalopram, 10 mg, Oral, Daily famotidine, 20 mg, Oral, Nightly ferrous sulfate, 325 mg, Oral, Daily with breakfast furosemide, 20 mg, Oral, Daily guaiFENesin, 600 mg, Oral, BID HYDROcodone-acetaminophen, 1 tablet, Oral, Q6H PRN lactobacillus GG-inulin, 1 capsule, Oral, BID latanoprost, 1 drop, Both Eyes, Nightly levalbuterol, 1.25 mg, Nebulization, RT Q4H PRN metoprolol succinate, 25 mg, Oral, Nightly nitroglycerin, 0.4 mg, Sublingual, Q5 Min PRN ondansetron, 4 mg, Oral, Q6H PRN pantoprazole, 40 mg, Oral, QAM AC polyethylene glycol, 17 g, Oral, Daily PRN polyvinyl alcohol, 2 drop, Both Eyes, QAM AC predniSONE, 10 mg, Oral, Daily prochlorperazine, 10 mg, Oral, Q8H PRN senna, 8.6-17.2 mg, Oral, BID PRN Total time of approximately 25 minutes was spent with the patient and/or patient's family, and/or on the patient's floor/unit, of which more than 50% was spent counseling and/or coord ination the patient's care as outlined above. Sam Valladares MD 12/09/2019 4:01 PM [facility], Sam Galarza MD - 12/08/2019 5:41 PM PST [facility] Hospitalist Progress Note Ángela Crowley is a 89 y.o. female ASSESSMENT and PLAN: Active Hospital Problems Diagnosis *Pneumonia due to methicillin resistant Staphylococcus aureus (MRSA) Decubitus ulcer of sacral region, stage 2 Moderate protein-calorie malnutrition COPD (chronic obstructive pulmonary disease) Coronary artery disease involving [place] coronary artery of [place] heart without angina pectoris Resolved Hospital Problems No resolved problems to display. BilateralMRSApneumonia/Rhinovirus upper respiratory tract infection/chronic respiratory failure with hypoxia: -CT scan showed mucus plugging, patchy consolidations. - History of COPD/chronic respiratory failure with hypoxia with 2-3L oxygen use at home, on chronic prednisone and budesonide use at home. 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 Transfused 1u PRBC 12/03. - HGB 9.0 12/07, stable Gastritis history On PPI and famotidine. 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 Resumed aspirin . Urinary incontinence/retention Because of retention, Ceja cath placed 12/05, d/c oxybutynin - Remove Ceja cath today Depression/anxiety Continue Lexapro Denied current symptoms. Sacral decub Continue wound care Essential Hypertension On low-dose carvedilol and metoprolol, labile but adequate control. This is reportedly her home regimen. Moderate protein calorie malnutrition I attestthat this clinical assessment using ASPEN criteria 1is accurate for this patien t and supports that as a medical diagnosis.A specific nutrition treatment plan will be i mplemented as outlined in the registered dietitian's plan of care. Nutrition Diagnosis: Moderate protein-calorie malnutrition Type, Moderate: Chronic illness(COPD) Energy Intake: Less than or equal to 75% energy intake compared to estimated needs for grea ter than or equal to 1 month Body Fat: Moderate depletion (NFPE shows wasting orbital tricpes and ribs) Muscle Mass: Moderate depletion (NFPE shows wasting in temples, clavicles, shoulders) Disposition : Home with home health when stable Prophylaxis: aspirin SUBJECTIVE: Reason for visit/Chief complaint: Shortness of breath, pneumonia Interval History: Unable to give much history. Short of breath with activity. Able to eat at least half of lunch. Complains of some chronic pain. Feels anxious, lonely, wants to s ee her son. VITALS: Temp: 36.3 C (97.4 F), Pulse: 91, Resp: 20, BP: 144/65, SpO2 94 % on nasal cannula Temp Min: 36.1 C (97 F) Max: 37.2 C (99 F) Intake/Output Summary (Last 24 hours) at 12/08/2019 1741 Last data filed at 12/08/2019 1415 Gross per 24 hour Intake 684 ml Output 1125 ml Net -441 ml Difference: Unavailable PHYSICAL EXAM: General: Frail, thin, sitting up in chair, anxious Neck: Supple Cardiovascular: Regular rate and rhythm Respiratory: Diminished breath sounds throughout slight crackles in bases Abdomen: Soft, NT Extremities: WWP Neurological: Alert and oriented to person, place, not time Ceja catheter present: Yes, remove today DIAGNOSTIC STUDIES: Available data and images were reviewed personally. Significant results and findings are a ddressed here or in the Assessment and Plan. Recent Results (from the past 24 hour(s)) Basic Metabolic Panel Result Value Ref Range Na 141 136 - 145 mmol/L K 3.9 3.4 - 5.1 mmol/L Cl 105 98 - 107 mmol/L CO2 34 (H) 20 - 31 mmol/L Anion Gap 2 (L) 3 - 16 mmol/L Glucose 79 60 - 106 mg/dL BUN 17 9 - 23 mg/dL Creatinine 0.65 0.55 - 1.02 mg/dL eGFR if not >60 >=60 mL/min/1.73m2 Calcium 8.1 (L) 8.7 - 10.4 mg/dL BUN/Creatinine Ratio 26.2 CBC with Differential Result Value Ref Range WBC 7.1 4.0 - 11.0 K/uL RBC 2.90 (L) 3.70 - 5.20 M/uL Hemoglobin 9.0 (L) 11.5 - 16.0 g/dL Hematocrit 28.4 (L) 34.0 - 47.0 % MCV 97.9 83.0 - 101.0 fL MCH 31.0 28.0 - 35.0 pg MCHC 31.7 (L) 32.0 - 36.0 g/dL RDW-CV 14.7 <15.0 % RDW-SD 53.2 (H) 35.1 - 46.3 fL Platelet Count 140 140 - 440 K/uL MPV 11.1 6.5 - 12.4 fL % Neutrophils 77.2 45.0 - 82.0 % % Lymphocytes 12.3 (L) 20.0 - 45.0 % % Monocytes 9.6 4.0 - 12.0 % % Eosinophils 0.4 0.0 - 5.0 % % Basophils 0.1 0.0 - 1.0 % % Immature Granulocytes 0.4 0.0 - 0.4 % Absolute Neutrophils 5.48 1.80 - 8.50 K/uL Absolute Lymphocytes 0.87 0.60 - 3.20 K/uL Absolute Monocytes 0.68 0.00 - 1.00 K/uL Absolute Eosinophils 0.03 0.00 - 0.40 K/uL Absolute Basophils 0.01 0.00 - 0.10 K/uL Absolute Immature Granulocytes 0.03 0.00 - 0.03 K/uL % nRBC 0 0 - 2 per 100 WBCs Absolute nRBC 0.00 0.00 - 0.01 K/uL No results found. acetaminophen, 650 mg, Oral, Q6H PRN albuterol-ipratropium, 3 mL, Nebulization, RT 4x DAILY aspirin, 81 mg, Oral, Daily atorvaSTATin, 20 mg, Oral, QAM bisacodyl, 10 mg, Rectal, Daily PRN brimonidine, 1 drop, Both Eyes, BID budesonide, 0.5 mg, Nebulization, RT BID calcium carbonate, 1,000 mg, Oral, Q8H PRN carvedilol, 6.25 mg, Oral, BID WC dicyclomine, 10 mg, Oral, Daily PRN docusate sodium, 500 mg, Oral, QAM dorzolamide, 1 drop, Both Eyes, BID escitalopram, 10 mg, Oral, Daily famotidine, 20 mg, Oral, Nightly ferrous sulfate, 325 mg, Oral, Daily with breakfast guaiFENesin, 600 mg, Oral, BID HYDROcodone-acetaminophen, 1 tablet, Oral, Q6H PRN lactobacillus GG-inulin, 1 capsule, Oral, BID latanoprost, 1 drop, Both Eyes, Nightly levalbuterol, 1.25 mg, Nebulization, RT Q4H PRN metoprolol succinate, 25 mg, Oral, Nightly nitroglycerin, 0.4 mg, Sublingual, Q5 Min PRN ondansetron, 4 mg, Oral, Q6H PRN pantoprazole, 40 mg, Oral, QAM AC polyethylene glycol, 17 g, Oral, Daily PRN polyvinyl alcohol, 2 drop, Both Eyes, QAM AC predniSONE, 20 mg, Oral, Daily prochlorperazine, 10 mg, Oral, Q8H PRN senna, 8.6-17.2 mg, Oral, BID PRN vancomycin, 500 mg, Intravenous, Q12H vancomycin per pharmacy, , Other, Pharmacy Consult Total time of approximately 25 minutes was spent with the patient and/or patient's family, and/or on the patient's floor/unit, of which more than 50% was spent counseling and/or coord ination the patient's care as outlined above. Sam Valladares MD 12/08/2019 5:41 PM [facility] Jose Dalal , TalonD - 12/08/2019 11:48 AM PSTFormatting of this note might be different from the origin al. VANCOMYCIN PER PHARMACY PROTOCOL: AMS/Drug Name - vancomycin Patient: Ángela Crowley [id number] Admit: 12/01/2019 10:10 AM RELEVANT ALLERGIES: metronidazole, sulfa antibiotics 89 yrs old female patient admitted on 12/01/2019 for pneumonia and influenza A. Patient is receiving vancomycin starting on 12/01/19 Patient has a past medical history of Aortic maria m nosis, COPD (chronic obstructive pulmonary disease) ([facility]), Coronary artery disease, Kidney s tone, MRSA (methicillin resistant Staphylococcus aureus) (11/2019), Rheumatic fever, Tubercu losis, and Venereal disease. . Risk factors for MDR organisms include: recent healthcare con tact. HPI: increasing shortness of breath and wheezing. She is normally on 2L of O2 via NC at all times. Now having severe shortness of breath and wheezing and unable to live at home with h er son. Recent admit for similar symptoms and also found to have influenza A. Now symptoms a re worsening. Antimicrobials - Current Antibiotic Dates of Therapy vancomycin 12/01- Antimicrobials - Discontinued Antibiotic Dates of Therapy Augmentin 11/24-11/27 azithromycin 11/18-11/23 oseltamivir 11/18-11/24 cefdinir 11/23 x1 dose levoflox 12-01- Historical Vancomycin dosing (previous & current encounter): none Micro/Cultures/Diagnostics: Microbiology Results (Last 14 Days by Collected Date with Culture/Sensitivity) Procedure Component Value Units Date/Time Culture, MRSA [[id number]] Collected: 12/04/19 1324 Order Status: Completed Lab Status: Final result Updated: 12/05/19 0724 Specimen: Tissue from Nares Culture 4+ Staphylococcus aureus,Methicillin resistant (MRSA) Comment: *INFECTION PREVENTION ALERT - MRSA* CONTACT PRECAUTIONS REQUIRED. Culture, Respiratory, Lower, Smear [[id number]] (Susceptibility) Collected: 12/03/19 1527 Order Status: Completed Lab Status: Final result Updated: 12/05/19 1416 Specimen: Body Fluid from Sputum, Expectorated Culture 4+ Staphylococcus aureus,Methicillin resistant (MRSA) Comment: *INFECTION PREVENTION ALERT - MRSA* CONTACT PRECAUTIONS REQUIRED. Gram Stain Result 3+ White Blood Cells 2+ Gram positive cocci Susceptibility Staphylococcus aureus,Methicillin [...] Vancomycin Sensitive 1 ug/mL Not Specified Final Respiratory pathogen panel, NAAT [[id number]] (Abnormal) Collected: 12/01/19 1730 Order Status: Completed Lab Status: Final result Updated: 12/01/19 210 Specimen: Body Fluid from Nasopharynx Parainfluenza 1 Not Detected Adenovirus Not Detected Human Metapneumovirus Not Detected Rhinovirus/Enterovirus Detected Parainfluenza 3 Not Detected Culture, Blood [[id number]] Collected: 12/01/19 1234 Order Status: Completed Lab Status: Final result Updated: 12/06/19 1241 Specimen: Peripheral Blood Culture No growth after 5 days incubation. Culture, Blood [[id number]] Collected: 12/01/19 1234 Order Status: Completed Lab Status: Final result Updated: 12/06/19 1241 Specimen: Blood from Line Culture No growth after 5 days incubation. Gram Stain, reflex Sputum Culture [[id number]] Order Status: No result Lab Status: No result Specimen: Body Fluid from Sputum, Expectorated Relevant cultures from previous admits: Date Source Organisms Sensitivities 11/24/19 resp Pseudomonas putida pansensitive 11/18/19 urine E. coli pansensitive Enterococcus faecalis pansensitive 08/21/19 urine Enterococcus faecium Sens: amp, pen, vanco E.coli pansensitive 07/21/19 resp Pseudomonas aeruginosa pansensitive Admission Wt: 53.1 kg Current Wt: Min/Max Temp past 24 hours:Temp Av.8 C (98.2 F) Min: 36.1 C (97 F) Max: 37. 2 C (99 F) Estimated Creatinine Clearance: 49 mL/min (based on SCr of 0.65 mg/dL). Intake/Output Summary (Last 24 hours) at 12/08/2019 1148 Last data filed at 12/08/2019 0839 Gross per 24 hour Intake 240 ml Output 1225 ml Net -985 ml Temp: [36.1 C (97 F)-37.2 C (99 F)] 37.2 C (99 F) Pulse: [88-100] 91 Resp: [16-20] 18 BP: (118-166)/(67-82) 166/74 Recent Labs Lab 12/08/19 0402 12/08/19 0401 12/07/19 1500 12/07/19 0337 12/07/19 0331 12/06/19 0350 12/06/19 0214 12/05/19 1346 12/05/19 0447 12/04/19 1317 12/04/19 0431 12/03/19 1311 WBC 7.1 -- -- 7.6 -- 11.3* -- -- 11.4* -- 12.8* -- CREA -- 0.65 -- -- 0.69 0.61 -- -- 0.58 -- 0.57 -- VANCOTROUGH -- -- 21.4* -- -- -- 18.8* 17.0* -- 12.0* -- -- VANCORANDOM -- -- -- -- -- -- -- -- -- -- -- 11.1 Imagin/26: CXR - pulmonary venous congestion; prominent pulmonary arteries indicating pulmonary htn 12/01 CT Chest: MUCOUS PLUGGING WITHIN RIGHT-SIDED AIRWAYS WITH EXTENSIVE CLUSTERED NODULAR ITY INVOLVING PORTIONS OF BOTH LUNGS AND PATCHY CONSOLIDATION/GROUND GLASS OPACITY IN THE UPPER LOBES, CONSISTENT WITH MULTIFOCAL LIKELY AIRWAY CENTERED INFECTI ON. A VERY SMALL RIGHT PLEURAL EFFUSION IS ALSO PRESENT. VASCULAR CALCIFICATION WITH SIMILAR ASCENDING AORTIC DILATION UP TO A DIAMETER OF 4 CM, AND MAIN PULMONARY ARTERY ENLARGEMENT SUGGESTING PULMONARY ARTERIAL HYPERTENSION. Date 12/01 12/02 12/03 12/04 12/05 12/06 12/07 Time of Vancomycin draw -- -- 1311 1317 1346 0214 1500 Vancomycin result -- -- 11.1 12.0 17 18.8 21.4 LEVEL or TROUGH -- -- LEVEL TROUGH TROUGH TROUGH TROUGH Serum Creatinine 0.70 0.62 0.67 0.57 0.58 0.61 0.69 0.65 CrCl (mL/min) 46 52 48 56 55 52 46 49 Vanco load/bolus - mg -- -- -- -- -- -- Vanco dose - current -- 1000 mg q24h 1000 mg q24h 1g q24h 600mg q12h 600 mg q12h 600 mg q12 h 500 mg q12h Vanco dose - new 1000 mg q24hr -- -- 600mg q12h No change No change HOLD x1 dose, then 500 mg q12h No change Assessment: Vancomycin Day #8 Other antibiotics: Target Trough: 15-20, pna WBC: WNL; Renal: stable; Temp: afebrile; Culture: 12/01 blood-NGTD; 11/24 resp -pseudomon as putida; 12/03 sputum- MRSA; MRSA nares+ VS: occassionally tachycardic Renal function: UOP: Urine output stable Vancomycin trough on 12/06 returned supratherapeutic Continuing to dose conservatively given patient's age and renal function Plan: 1. Continue Vancomycin 500 mg q12h 2. Vancomycin TROUGH ordered for 12/09/19 @ 1500 (draw 60 minutes prior to hanging the next 4 th dose) 3. Serum creatinine DAILY for first 3 [...] Dosing and Monitoring Protocol Electronically signed by: Jose Riggs PharmD 12/08/2019 11:48 AM Lisa Ferris MD - 12/07/2019 5:24 PM PSTFormatting of this note might be different from the origin al. [facility] PM[facility] Hospitalist Progress Note Ángela Crowley is a 89 y.o. female ASSESSMENT and PLAN: Active Hospital Problems Diagnosis *Pneumonia due to methicillin resistant Staphylococcus aureus (MRSA) Decubitus ulcer of sacral region, stage 2 Moderate protein-calorie malnutrition COPD (chronic obstructive pulmonary disease) Coronary artery disease involving [place] coronary artery of [place] heart without angina pectoris Resolved Hospital Problems No resolved problems to display. Bilateral MRSA pneumonia/Rhinovirus upper respiratory tract infection/chronic respiratory f ailure with hypoxia: -CT scan showed mucus plugging, patchy consolidations. - History of COPD/chronic respiratory failure with hypoxia with 2-3L oxygen use at home, on chronic prednisone and budesonide use at home. 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 Transfused 1u PRBC 12/03. - HGB 8.6 12/06, monitor daily Gastritis history On PPI and famotidine. 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 Resumed aspirin . Urinary incontinence/retention Because of retention, Ceja cath placed 12/05, d/c oxybutynin Depression/anxiety Continue Lexapro Denied current symptoms. Sacral decub Continue wound care Essential Hypertension On low-dose carvedilol and metoprolol, labile but decent control. This is reportedly her h ome regimen. Moderate protein calorie malnutrition I attest that this clinical assessment using ASPEN criteria 1 is accurate for this patient and supports that as a medical diagnosis. A specific nutrition treatment plan will be impl emented as outlined in the registered dietitian's plan of care. Nutrition Diagnosis: Moderate protein-calorie malnutrition Type, Moderate: Chronic illness(COPD) Energy Intake: Less than or equal to 75% energy intake compared to estimated needs for luca ter than or equal to 1 month Body Fat: Moderate depletion (NFPE shows wasting orbital tricpes and ribs) Muscle Mass: Moderate depletion (NFPE shows wasting in temples, clavicles, shoulders) Disposition : SNF would be reasonable given her wound/deconditioning, but she and her son refuse SNF, wish for her to go home Prophylaxis: aspirin SUBJECTIVE: Reason for visit/Chief complaint: Shortness of breath, cough Interval History: Becomes anxious and short of breath with much of any activity. Urinary r etention noted last night, Ceja catheter placed. States she is eating. No acute chest carl n, nausea or vomiting VITALS: Temp: 36.7 C (98.1 F), Pulse: 94, Resp: 20, BP: 142/82, SpO2 93 % on nasal cannula Temp Min: 36.4 C (97.5 F) Max: 37 C (98.6 F) Intake/Output Summary (Last 24 hours) at 12/07/2019 1725 Last data filed at 12/07/2019 1545 Gross per 24 hour Intake 590 ml Output 1925 ml Net -1335 ml Difference: Unavailable PHYSICAL EXAM: General: Alert, appropriate, no distress Neck: Supple Cardiovascular: Regular rate and rhythm Respiratory: Scattered rhonchi, distant breath sounds Abdomen: Soft, nontender Extremities: Warm and well-perfused Neurological: Oriented to person, town, hospital although could not remember the name of [facility] Ceja catheter present: Yes If so, reason: Urinary retention DIAGNOSTIC STUDIES: Available data and images were reviewed personally. Significant results and findings are a ddressed here or in the Assessment and Plan. Recent Results (from the past 24 hour(s)) Urinalysis with Microscopic with Culture if Indicated Result Value Ref Range Color, Urine Yellow Light Yellow, Yellow, Straw Clarity Turbid (A) Clear pH, Urine 7.0 5.0 - 8.0 Specific [place] 1.008 1.001 - 1.030 Protein, Urine Negative Negative Blood, Urine Negative Negative Glucose, Urine Negative Negative Ketones, Urine Negative Negative Bilirubin, Urine Negative Negative Nitrite, Urine Negative Negative Leukocyte Esterase, Urine Negative Negative Urobilinogen, Urine Negative 0.2 mg/dL, 1.0 mg/dL, Negative WBC UA 0-2 0 - 2 /HPF RBC UA 5-10 (A) 0 - 2 /HPF SQUAMOUS EPITHELIAL UA 50-100 (A) 0 - 2 /LPF BACTERIA UA Negative Negative /HPF AMORPHOUS CRYSTALS Few (A) None Seen /HPF HYALINE CASTS UA 2-5 (A) 0 - 2 /LPF Basic Metabolic Panel Result Value Ref Range Na 144 136 - 145 mmol/L K 3.3 (L) 3.4 - 5.1 mmol/L Cl 104 98 - 107 mmol/L CO2 37 (H) 20 - 31 mmol/L Anion Gap 3 3 - 16 mmol/L Glucose 74 60 - 106 mg/dL BUN 16 9 - 23 mg/dL Creatinine 0.69 0.55 - 1.02 mg/dL eGFR if not >60 >=60 mL/min/1.73m2 Calcium 7.7 (L) 8.7 - 10.4 mg/dL BUN/Creatinine Ratio 23.2 CBC with Differential Result Value Ref Range WBC 7.6 4.0 - 11.0 K/uL RBC 2.86 (L) 3.70 - 5.20 M/uL Hemoglobin 8.6 (L) 11.5 - 16.0 g/dL Hematocrit 27.7 (L) 34.0 - 47.0 % MCV 96.9 83.0 - 101.0 fL MCH 30.1 28.0 - 35.0 pg MCHC 31.0 (L) 32.0 - 36.0 g/dL RDW-CV 14.8 <15.0 % RDW-SD 52.8 (H) 35.1 - 46.3 fL Platelet Count 130 (L) 140 - 440 K/uL MPV 10.3 6.5 - 12.4 fL % Neutrophils 81.0 45.0 - 82.0 % % Lymphocytes 8.8 (L) 20.0 - 45.0 % % Monocytes 9.2 4.0 - 12.0 % % Eosinophils 0.5 0.0 - 5.0 % % Basophils 0.1 0.0 - 1.0 % % Immature Granulocytes 0.4 0.0 - 0.4 % Absolute Neutrophils 6.19 1.80 - 8.50 K/uL Absolute Lymphocytes 0.67 0.60 - 3.20 K/uL Absolute Monocytes 0.70 0.00 - 1.00 K/uL Absolute Eosinophils 0.04 0.00 - 0.40 K/uL Absolute Basophils 0.01 0.00 - 0.10 K/uL Absolute Immature Granulocytes 0.03 0.00 - 0.03 K/uL % nRBC 0 0 - 2 per 100 WBCs Absolute nRBC 0.00 0.00 - 0.01 K/uL Vancomycin, Trough Result Value Ref Range Date of Last Dose Time of Last Dose Vancomycin Trough 21.4 (HH) 5.0 - 10.0 ug/mL Xr Chest Ap Portable Result Date: 12/06/2019 XR CHEST AP PORTABLE 12/06/2019 12:53 PM HISTORY: eval pna. COMPARISON: Multiple priors. Find ings: There is a right PICC line with tip at the cavoatrial junction. Heart size is at the u pper limits of normal. There is atherosclerosis of the aorta. A stent is noted over the lowe r aorta. Central pulmonary vasculature is normal. Mild diffuse scarring are present of the b ilateral lungs. Degenerative changes are noted of the shoulders. There is moderate spondylos is. No acute findings. Dictated and Signed by: Patrick Rodriguez MD Electronically signed: 12/06/2019 2:35 PM acetaminophen, 650 mg, Oral, Q6H PRN albuterol-ipratropium, 3 mL, Nebulization, RT 4x DAILY aspirin, 81 mg, Oral, Daily atorvaSTATin, 20 mg, Oral, QAM bisacodyl, 10 mg, Rectal, Daily PRN brimonidine, 1 drop, Both Eyes, BID budesonide, 0.5 mg, Nebulization, RT BID calcium carbonate, 1,000 mg, Oral, Q8H PRN carvedilol, 6.25 mg, Oral, BID WC dicyclomine, 10 mg, Oral, Daily PRN docusate sodium, 500 mg, Oral, QAM dorzolamide, 1 drop, Both Eyes, BID escitalopram, 10 mg, Oral, Daily famotidine, 20 mg, Oral, Nightly ferrous sulfate, 325 mg, Oral, Daily with breakfast guaiFENesin, 600 mg, Oral, BID HYDROcodone-acetaminophen, 1 tablet, Oral, Q6H PRN lactobacillus GG-inulin, 1 capsule, Oral, BID latanoprost, 1 drop, Both Eyes, Nightly levalbuterol, 1.25 mg, Nebulization, RT Q4H PRN metoprolol succinate, 25 mg, Oral, Nightly nitroglycerin, 0.4 mg, Sublingual, Q5 Min PRN ondansetron, 4 mg, Oral, Q6H PRN oxybutynin, 5 mg, Oral, BID pantoprazole, 40 mg, Oral, QAM AC polyethylene glycol, 17 g, Oral, Daily PRN polyvinyl alcohol, 2 drop, Both Eyes, QAM AC [START ON 12/08/2019] predniSONE, 20 mg, Oral, Daily prochlorperazine, 10 mg, Oral, Q8H PRN senna, 8.6-17.2 mg, Oral, BID PRN [START ON 12/08/2019] vancomycin, 500 mg, Intravenous, Q12H vancomycin per pharmacy, , Other, Pharmacy Consult Total time of approximately 25 minutes was spent with the patient and/or patient's family, and/or on the patient's floor/unit, of which more than 50% was spent counseling and/or coord ination the patient's care as outlined above. Sam Valladares MD 12/07/2019 5:25 PM [facility] utumn Sutherland, Ph armD - 12/07/2019 3:57 PM PST VANCOMYCIN PER PHARMACY PROTOCOL: AMS/Drug Name - vancomycin Patient: Ángela Crowley [id number] Admit: 12/01/2019 10:10 AM RELEVANT ALLERGIES: metronidazole, sulfa antibiotics 89 yrs old female patient admitted on 12/01/2019 for pneumonia and influenza A. Patient is receiving vancomycin starting on 12/01/19 Patient has a past medical history of Aortic maria m nosis, COPD (chronic obstructive pulmonary disease) ([facility]), Coronary artery disease, Kidney s tone, MRSA (methicillin resistant Staphylococcus aureus) (11/2019), Rheumatic fever, Tubercu losis, and Venereal disease. . Risk factors for MDR organisms include: recent healthcare con tact. HPI: increasing shortness of breath and wheezing. She is normally on 2L of O2 via NC at all times. Now having severe shortness of breath and wheezing and unable to live at home with h er son. Recent admit for similar symptoms and also found to have influenza A. Now symptoms a re worsening. Antimicrobials - Current Antibiotic Dates of Therapy vancomycin 12/01- Antimicrobials - Discontinued Antibiotic Dates of Therapy Augmentin 11/24-11/27 azithromycin 11/18-11/23 oseltamivir 11/18-11/24 cefdinir 11/23 x1 dose levoflox 12-01- Historical Vancomycin dosing (previous & current encounter): none Micro/Cultures/Diagnostics: Microbiology Results (Last 14 Days by Collected Date with Culture/Sensitivity) Procedure Component Value Units Date/Time Culture, MRSA [[id number]] Collected: 12/04/19 1324 Order Status: Completed Lab Status: Final result Updated: 12/05/19 0724 Specimen: Tissue from Nares Culture 4+ Staphylococcus aureus,Methicillin resistant (MRSA) Comment: *INFECTION PREVENTION ALERT - MRSA* CONTACT PRECAUTIONS REQUIRED. Culture, Respiratory, Lower, Smear [[id number]] (Susceptibility) Collected: 12/03/19 1527 Order Status: Completed Lab Status: Final result Updated: 12/05/19 1416 Specimen: Body Fluid from Sputum, Expectorated Culture 4+ Staphylococcus aureus,Methicillin resistant (MRSA) Comment: *INFECTION PREVENTION ALERT - MRSA* CONTACT PRECAUTIONS REQUIRED. Gram Stain Result 3+ White Blood Cells 2+ Gram positive cocci Susceptibility Staphylococcus aureus,Methicillin [...] Vancomycin Sensitive 1 ug/mL Not Specified Final Respiratory pathogen panel, NAAT [[id number]] (Abnormal) Collected: 12/01/19 1730 Order Status: Completed Lab Status: Final result Updated: 12/01/19 2103 Specimen: Body Fluid from Nasopharynx Parainfluenza 1 Not Detected Adenovirus Not Detected Human Metapneumovirus Not Detected Rhinovirus/Enterovirus Detected Parainfluenza 3 Not Detected Culture, Blood [[id number]] Collected: 12/01/19 1234 Order Status: Completed Lab Status: Final result Updated: 12/06/19 1241 Specimen: Peripheral Blood Culture No growth after 5 days incubation. Culture, Blood [[id number]] Collected: 12/01/19 1234 Order Status: Completed Lab Status: Final result Updated: 12/06/19 1241 Specimen: Blood from Line Culture No growth after 5 days incubation. Gram Stain, reflex Sputum Culture [[id number]] Order Status: No result Lab Status: No result Specimen: Body Fluid from Sputum, Expectorated Culture, Respiratory, Lower, Smear [[id number]] (Susceptibility) Collected: 11/24/19 0014 Order Status: Completed Lab Status: Final result Updated: 11/26/19 1136 Specimen: Body Fluid from Sputum, Expectorated Culture 4+ Pseudomonas putida 4+ Usual Respiratory Kylee Gram Stain Result 4+ White Blood Cells 2+ Epithelial cells 4+ Gram positive cocci 1+ Yeast Susceptibility Pseudomonas putida (1) Antibiotic Interpretation Microscan Method Status Ceftazidime Sensitive <=1 ug/mL Not Specified Final Ceftriaxone Sensitive 8 ug/mL Not Specified Final Ciprofloxacin Sensitive <=0.25 ug/mL Not Specified Final Gentamicin Sensitive <=1 ug/mL Not Specified Final Meropenem Sensitive <=0.25 ug/mL Not Specified Final Tobramycin Sensitive <=1 ug/mL Not Specified Final Trimethoprim + Sulfamethoxazole Sensitive <=20 ug/mL Not Specified Final Relevant cultures from previous admits: Date Source Organisms Sensitivities 11/24/19 resp Pseudomonas putida pansensitive 11/18/19 urine E. coli pansensitive Enterococcus faecalis pansensitive 08/21/19 urine Enterococcus faecium Sens: amp, pen, vanco E.coli pansensitive 07/21/19 resp Pseudomonas aeruginosa pansensitive Admission Wt: 53.1 kg Current Wt: Min/Max Temp past 24 hours:Temp Av.7 C (98.1 F) Min: 36.4 C (97.5 F) Max: 3 7 C (98.6 F) Estimated Creatinine Clearance: 46 mL/min (based on SCr of 0.69 mg/dL). Intake/Output Summary (Last 24 hours) at 12/07/2019 1557 Last data filed at 12/07/2019 1545 Gross per 24 hour Intake 790 ml Output 2000 ml Net -1210 ml Temp: [36.4 C (97.5 F)-37 C (98.6 F)] 36.7 C (98.1 F) Pulse: [84-100] 94 Resp: [19-20] 20 BP: (118-157)/(68-86) 142/82 Recent Labs Lab 12/07/19 1500 12/07/19 0337 12/07/19 0331 12/06/19 0350 12/06/19 0214 12/05/19 1346 12/05/19 0447 12/04/19 1317 12/04/19 0431 12/03/19 1311 12/03/19 0629 12/01/19 1021 WBC -- 7.6 -- 11.3* -- -- 11.4* -- 12.8* -- 12.3* < > -- CREA -- -- 0.69 0.61 -- -- 0.58 -- 0.57 -- 0.67 < > -- VANCOTROUGH 21.4* -- -- -- 18.8* 17.0* -- 12.0* -- -- -- -- -- VANCORANDOM -- -- -- -- -- -- -- -- -- 11.1 -- -- -- PROCALCITONI -- -- -- -- -- -- -- -- -- -- -- -- 0.07 < > = values in this interval not displayed. Imagin/26: CXR - pulmonary venous congestion; prominent pulmonary arteries indicating pulmonary htn 12/01 CT Chest: MUCOUS PLUGGING WITHIN RIGHT-SIDED AIRWAYS WITH EXTENSIVE CLUSTERED NODULAR ITY INVOLVING PORTIONS OF BOTH LUNGS AND PATCHY CONSOLIDATION/GROUND GLASS OPACITY IN THE UPPER LOBES, CONSISTENT WITH MULTIFOCAL LIKELY AIRWAY CENTERED INFECTI ON. A VERY SMALL RIGHT PLEURAL EFFUSION IS ALSO PRESENT. VASCULAR CALCIFICATION WITH SIMILAR ASCENDING AORTIC DILATION UP TO A DIAMETER OF 4 CM, AND MAIN PULMONARY ARTERY ENLARGEMENT SUGGESTING PULMONARY ARTERIAL HYPERTENSION. Date 12/01 12/02 12/03 12/04 12/05 12/06 12/07 Time of Vancomycin draw -- -- 1311 1317 1346 0214 1500 Vancomycin result -- -- 11.1 12.0 17 18.8 21.4 LEVEL or TROUGH -- -- LEVEL TROUGH TROUGH TROUGH TROUGH Serum Creatinine 0.70 0.62 0.67 0.57 0.58 0.61 0.69 CrCl (mL/min) 46 52 48 56 55 52 46 Vanco load/bolus - mg -- -- -- -- -- -- Vanco dose - current -- 1000 mg q24h 1000 mg q24h 1g q24h 600mg q12h 600 mg q12h 600 mg q12 h Vanco dose - new 1000 mg q24hr -- -- 600mg q12h No change No change HOLD x1 dose, then 500 mg q12h Assessment: Vancomycin Day #7 Other antibiotics: Target Trough: 15-20, pna WBC: 7.6 (now WNL); Renal: fluctuating, sl worsened today; Temp: afebrile; Culture: 12/01 blood-NGTD; 11/24 resp -pseudomonas putida; 12/03 sputum- MRSA; MRSA nares+ VS: occassionall y tachycardic Renal function: UOP: Urine output good @ 1.4 ml/kg/hr, improved Vancomycin trough on 12/06 returned supratherapeutic Continuing to dose conservatively given patient's age and renal function Plan: 1. HOLD vancomycin x1 dose, then re-start at 500 mg q12h 2. Vancomycin TROUGH ordered for 12/09/19 @ 1500 (draw 60 minutes prior to hanging the next 4 th dose) 3. Serum creatinine DAILY for first 3 [...] Dosing and Monitoring Protocol Electronically signed by: Autumn Sutherland PharmShruthi 12/07/2019 3:57 PM Sharon Hector MD - 12/06/2019 2:42 PM PST [facility] H[facility]PITAL[facility] PROGRESS NOTE Patient: Ángela Crowley : 1930: Age: 89 y.o. MedRec: [id number] Admission date: 12/01/2019 Hospital day # : 5 Physician author: Sharon Robles MD Today: 12/06/2019 Assessment and Hospital Course Active Hospital Problems Diagnosis Pneumonia Resolved Hospital Problems No resolved problems to display. 89 yo F with history of COPD with 2-3L oxygen requirement and chronic steroid use, TAVR, wh o presented with generalized weakness and productive cough. Plan #Bilateral MRSA pneumonia (suspect MRSA) #Rhinovirus upper respiratory tract infection #Possible COPD exacerbation #Chronic respiratory failure Imaging showed mucus plugging, patchy consolidations. History of COPD with 2-3L oxygen use at home. Chronic prednisone and budesonide use at home. Switch steroid to oral prednisone at this point, patient is at her baseline oxygen requirement. sensitivites on sputum culture s how multidrug resistance; continue vancomycin for now, could consider linezolid or Bactrim a s oral options. Patient complained of worsening shortness of breath in the middle of the night associated w ith anxiety. Remained stable on 2L; chest XR on my read looks improved from prior. 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 IV iron had been recommended previously. Transfused 1u PRBC 12/03. Blood counts stable. #Gastritis history On PPI and famotidine. #History TAVR #Chronic congestive heart failure No e/o decompensation currently despite elevated BNP. Continue home medications. Resumed aspirin . #Urinary incontinence Continue oxybutynin #Mood d/o Continue Lexapro Patient reported to have notable anxiety overnight; no add'l medications given and she was redirectable but I will discuss with her son by phone later today. #Sacral decub Continue wound care #Hypertension Somewhat labile blood pressures but overall controlled. D/w son he explained that she has b een on both metop and coreg for quite some time and this is the only solution they've found for her blood pressures. CCM. CTM. #Moderate protein calorie malnutrition I attest that this clinical assessment using ASPEN criteria 1 is accurate for this patient and supports that as a medical diagnosis. A specific nutrition treatment plan will be imple mented as outlined in the registered dietitian's plan of care. Nutrition Diagnosis: Moderate protein-calorie malnutrition Type, Moderate: Chronic illness(COPD) Energy Intake: Less than or equal to 75% energy intake compared to estimated needs for grea ter than or equal to 1 month Body Fat: Moderate depletion (NFPE shows wasting orbital tricpes and ribs) Muscle Mass: Moderate depletion (NFPE shows wasting in temples, clavicles, shoulders) FEN: cardiac Ppx: SCD Disposition: pending clinical course Subjective CC: no complaints Patient reported she felt "pretty well today, actually." denied shortness of breath. Was wo rking on having another bowel movement and sitting on the commode when I saw her. ROS was performed and was negative except as noted above. Exam Gen: chronically ill appearing, very [place], NAD HEENT: MMM, neck supple CV: regular rate and rhythm no m/r/g Pulm: coarse breath sounds at bilateral bases, no wheezing, normal effort, takes rapid shal low breaths Abdominal: soft, nontender, nondistended, normal bowel tones Extremities: well perfused, trace dependent edema Skin: warm, dry, no rashes Neuro: alert, no focal deficits aside from difficulty hearing Psych: normal mood and affect Allergies: Allergies Allergen Reactions Metronidazole GI Upset Flagyl [Metronidazole] Nausea And Vomiting and GI Upset Percocet [Oxycodone] Unknown Pregabalin Unknown Lyrica Sulfa Antibiotics Unknown Current Medications: Current Facility-Administered Medications Medication Dose Route Frequency Provider Last Rate Last Dose acetaminophen (TYLENOL) tablet 650 mg 650 mg Oral Q6H PRN Aida Mills MD albuterol-ipratropium 2.5-0.5 mg/3 mL nebulizer solution 3 mL 3 mL Nebulization RT 4x DAILY Aida Mills MD 3 mL at 12/06/19 1138 aspirin chewable tablet 81 mg 81 mg Oral Daily Aida Mills MD 81 mg at 12/06/19 083 8 atorvaSTATin (LIPITOR) tablet 20 mg 20 mg Oral QAM Aida Mills MD 20 mg at 12/06/19 0837 bisacodyl (DULCOLAX) suppository 10 mg 10 mg Rectal Daily PRN Sharon Robles MD 10 mg at 12/05/19 1052 brimonidine (ALPHAGAN) 0.2% ophthalmic solution 1 drop 1 drop Both Eyes BID Aida hernandez MD 1 drop at 12/06/19 0838 budesonide (PULMICORT) nebulizer solution 0.5 mg 0.5 mg Nebulization RT BID Sharon gastelum MD 0.5 mg at 12/06/19 0824 calcium carbonate (TUMS) chewable tablet 1,000 mg 1,000 mg Oral Q8H PRN Jzaz Begum D 1,000 mg at 12/04/19 1321 carvedilol (COREG) tablet 6.25 mg 6.25 mg Oral BID WC Aida Mills MD 6.25 mg at 11/25 0837 dicyclomine (BENTYL) capsule 10 mg 10 mg Oral Daily PRN Aida Mills MD docusate sodium (COLACE) capsule 500 mg 500 mg Oral QAM Aida Mills MD 500 mg at 0837 dorzolamide (TRUSOPT) 2% ophthalmic solution 1 drop 1 drop Both Eyes BID Aida Mills MD 1 drop at 12/06/19 0838 escitalopram (LEXAPRO) tablet 10 mg 10 mg Oral Daily Aida Mills MD 10 mg at 0838 famotidine (PEPCID) tablet 20 mg 20 mg Oral Nightly Autumn Sutherland PharmD 20 mg at 12/05/19 2036 ferrous sulfate tablet 325 mg 325 mg Oral Daily with breakfast Aida Mills MD 325 m g at 12/06/19 0837 furosemide (LASIX) tablet 20 mg 20 mg Oral BID (8 and 18) Aida Mills MD 20 mg at 0 12/06/19 0837 guaiFENesin (MUCINEX) ER tablet 600 mg 600 mg Oral BID Aida Mills MD 600 mg at 11/25 0837 HYDROcodone-acetaminophen (NORCO) 7.5-325 mg per tablet 1 tablet 1 tablet Oral Q6H PRN Aida Mills MD 1 tablet at 12/06/19 1201 lactobacillus GG-inulin (CULTURELLE) capsule 1 capsule 1 capsule Oral BID Markus barber PharmD 1 capsule at 12/06/19 0837 latanoprost (XALATAN) 0.005% ophthalmic solution 1 drop 1 drop Both Eyes Nightly Gagandeep Mills MD 1 drop at 12/05/19 2040 levalbuterol (XOPENEX) 1.25 mg/3 mL nebulizer solution 1.25 mg 1.25 mg Nebulization RT Q4H PRN Aida Mills MD 1.25 mg at 12/06/19 1138 metoprolol succinate (TOPROL-XL) ER tablet 25 mg 25 mg Oral Nightly Aida Mills MD 25 mg at 12/04/19 2030 nitroglycerin (NITROSTAT) SL tablet 0.4 mg 0.4 mg Sublingual Q5 Min PRN Jazz Begum ondansetron (ZOFRAN ODT) disintegrating tablet 4 mg 4 mg Oral Q6H PRN Aida Mills MD 4 mg at 12/03/19 1209 oxybutynin (DITROPAN XL) ER tablet 5 mg 5 mg Oral BID Aida Mills MD 5 mg at 0838 pantoprazole (PROTONIX) DR tablet 40 mg 40 mg Oral QAM AC Aida Mills MD 40 mg at 0 12/06/19 0634 polyethylene glycol (MIRALAX) powder 17 g 17 g Oral Daily PRN Aida Mills MD 17 g a t 12/05/19 1115 polyvinyl alcohol (LIQUITEARS) 1.4% ophthalmic solution 2 drop 2 drop Both Eyes QAM AC Aida Mills MD 2 drop at 12/06/19 0637 predniSONE (DELTASONE) tablet 40 mg 40 mg Oral Daily Sharon Robles MD 40 mg at 12/05 0838 prochlorperazine tablet 10 mg 10 mg Oral Q8H PRN Aida Mills MD senna (SENOKOT) tablet 8.6-17.2 mg 8.6-17.2 mg Oral BID PRN Aida Mills MD vancomycin 600 mg in sodium chloride 0.9% 250 mL IVPB 600 mg Intravenous Q12H Sharon sultana MD 256 mL/hr at 12/06/19 0430 600 mg at 12/06/19 0430 vancomycin per pharmacy Other Pharmacy Consult Aida Mills MD Current Infusions: Objective Data Point of care glucose No results for input(s): POCGLU in the last 168 hours. Labs last 24 hours Recent Results (from the past 24 hour(s)) Vancomycin, Trough Collection Time: 12/06/19 2:14 AM Result Value Ref Range Date of Last Dose Time of Last Dose Vancomycin Trough 18.8 (H) 5.0 - 10.0 ug/mL CBC with Differential Collection Time: 12/06/19 3:50 AM Result Value Ref Range WBC 11.3 (H) 4.0 - 11.0 K/uL RBC 3.40 (L) 3.70 - 5.20 M/uL Hemoglobin 10.2 (L) 11.5 - 16.0 g/dL Hematocrit 32.6 (L) 34.0 - 47.0 % MCV 95.9 83.0 - 101.0 fL MCH 30.0 28.0 - 35.0 pg MCHC 31.3 (L) 32.0 - 36.0 g/dL RDW-CV 15.0 (H) <15.0 % RDW-SD 52.7 (H) 35.1 - 46.3 fL Platelet Count 163 140 - 440 K/uL MPV 9.8 6.5 - 12.4 fL % Neutrophils 79.3 45.0 - 82.0 % % Lymphocytes 12.4 (L) 20.0 - 45.0 % % Monocytes 7.5 4.0 - 12.0 % % Eosinophils 0.4 0.0 - 5.0 % % Basophils 0.0 0.0 - 1.0 % % Immature Granulocytes 0.4 0.0 - 0.4 % Absolute Neutrophils 8.92 (H) 1.80 - 8.50 K/uL Absolute Lymphocytes 1.39 0.60 - 3.20 K/uL Absolute Monocytes 0.84 0.00 - 1.00 K/uL Absolute Eosinophils 0.05 0.00 - 0.40 K/uL Absolute Basophils 0.00 0.00 - 0.10 K/uL Absolute Immature Granulocytes 0.05 (H) 0.00 - 0.03 K/uL % nRBC 0 0 - 2 per 100 WBCs Absolute nRBC 0.00 0.00 - 0.01 K/uL Basic Metabolic Panel Collection Time: 12/06/19 3:50 AM Result Value Ref Range Na 142 136 - 145 mmol/L K 3.6 3.4 - 5.1 mmol/L Cl 101 98 - 107 mmol/L CO2 37 (H) 20 - 31 mmol/L Anion Gap 4 3 - 16 mmol/L Glucose 83 60 - 106 mg/dL BUN 15 9 - 23 mg/dL Creatinine 0.61 0.55 - 1.02 mg/dL eGFR if not >60 >=60 mL/min/1.73m2 Calcium 8.3 (L) 8.7 - 10.4 mg/dL BUN/Creatinine Ratio 24.6 Micro results (more choices using dot micro) Microbiology Results (72 hrs) Procedure Component Value Units Date/Time Culture, MRSA [[id number]] Collected: 12/04/19 1324 Order Status: Completed Lab Status: Final result Updated: 12/05/19 0724 Specimen: Tissue from Nares Culture 4+ Staphylococcus aureus,Methicillin resistant (MRSA) Comment: *INFECTION PREVENTION ALERT - MRSA* CONTACT PRECAUTIONS REQUIRED. Culture, Respiratory, Lower, Smear [[id number]] (Susceptibility) Collected: 12/03/19 1527 Order Status: Completed Lab Status: Final result Updated: 12/05/19 1416 Specimen: Body Fluid from Sputum, Expectorated Culture 4+ Staphylococcus aureus,Methicillin resistant (MRSA) Comment: *INFECTION PREVENTION ALERT - MRSA* CONTACT PRECAUTIONS REQUIRED. Gram Stain Result 3+ White Blood Cells 2+ Gram positive cocci Susceptibility Staphylococcus aureus,Methicillin [...] Vancomycin Sensitive 1 ug/mL Not Specified Final Radiology results (more choices using dot risresults) Xr Chest Ap Portable Result Date: 12/06/2019 XR CHEST AP PORTABLE 12/06/2019 12:53 PM HISTORY: eval pna. COMPARISON: Multiple priors. Find ings: There is a right PICC line with tip at the cavoatrial junction. Heart size is at the u pper limits of normal. There is atherosclerosis of the aorta. A stent is noted over the lowe r aorta. Central pulmonary vasculature is normal. Mild diffuse scarring are present of the b ilateral lungs. Degenerative changes are noted of the shoulders. There is moderate spondylos is. No acute findings. Dictated and Signed by: Patrick Rodriguez MD Electronically signed: 12/06/2019 2:35 PM Vitals Ranges: Temp: [35.9 C (96.7 F)-36.8 C (98.2 F)] 36 C (96.8 F) Pulse: [80-124] 87 Resp: [20-26] 22 BP: (104-180)/(54-88) 104/54 Vitals: Temp: 36 C (96.8 F) BP: 104/54 Pulse: 87 Resp: 22 SpO2: 95 % SpO2 95 % on nasal cannula at flow rate 2L/min Sharon Robles MD 12/06/2019 2:43 PM [facility] Santiago Duque, PharmD - 12/06/2019 4:21 AM PSTFormatting of this note migh t be different from the original. VANCOMYCIN PER PHARMACY PROTOCOL: AMS/Drug Name - vancomycin Patient: Ángela Crowley [id number] Admit: 12/01/2019 10:10 AM RELEVANT ALLERGIES: metronidazole, sulfa antibiotics 89 yrs old female patient admitted on 12/01/2019 for pneumonia and influenza A. 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 . Risk factors for MDR organisms include: recent healthcare contact. HPI: increasing shortness of breath and wheezing. She is normally on 2L of O2 via NC at all times. Now having severe shortness of breath and wheezing and unable to live at home with h er son. Recent admit for similar symptoms and also found to have influenza A. Now symptoms a re worsening. Antimicrobials - Current Antibiotic Dates of Therapy vancomycin 12/01- Antimicrobials - Discontinued Antibiotic Dates of Therapy Augmentin 11/24-11/27 azithromycin 11/18-11/23 oseltamivir 11/18-11/24 cefdinir 11/23 x1 dose levoflox 12-01- Historical Vancomycin dosing (previous & current encounter): none Micro/Cultures/Diagnostics: Microbiology Results (Last 14 Days by Collected Date with Culture/Sensitivity) Procedure Component Value Units Date/Time Culture, MRSA [[id number]] Collected: 12/04/19 1324 Order Status: Completed Lab Status: Final result Updated: 12/05/19 0724 Specimen: Tissue from Nares Culture 4+ Staphylococcus aureus,Methicillin resistant (MRSA) Comment: *INFECTION PREVENTION ALERT - MRSA* CONTACT PRECAUTIONS REQUIRED. Culture, Respiratory, Lower, Smear [[id number]] (Susceptibility) Collected: 12/03/19 1527 Order Status: Completed Lab Status: Final result Updated: 12/05/19 1416 Specimen: Body Fluid from Sputum, Expectorated Culture 4+ Staphylococcus aureus,Methicillin resistant (MRSA) Comment: *INFECTION PREVENTION ALERT - MRSA* CONTACT PRECAUTIONS REQUIRED. Gram Stain Result 3+ White Blood Cells 2+ Gram positive cocci Susceptibility Staphylococcus aureus,Methicillin [...] Vancomycin Sensitive 1 ug/mL Not Specified Final Respiratory pathogen panel, NAAT [[id number]] (Abnormal) Collected: 12/01/19 1730 Order Status: Completed Lab Status: Final result Updated: 12/01/19 210 Specimen: Body Fluid from Nasopharynx Parainfluenza 1 Not Detected Adenovirus Not Detected Human Metapneumovirus Not Detected Rhinovirus/Enterovirus Detected Parainfluenza 3 Not Detected Culture, Blood [[id number]] Collected: 12/01/19 1234 Order Status: Completed Lab Status: Preliminary result Updated: 12/04/19 1241 Specimen: Peripheral Blood Culture No growth: Monitored continually by instrument for 5 days Culture, Blood [[id number]] Collected: 12/01/19 1234 Order Status: Completed Lab Status: Preliminary result Updated: 12/04/19 1241 Specimen: Blood from Line Culture No growth: Monitored continually by instrument for 5 days Gram Stain, reflex Sputum Culture [[id number]] Order Status: No result Lab Status: No result Specimen: Body Fluid from Sputum, Expectorated Culture, Respiratory, Lower, Smear [[id number]] (Susceptibility) Collected: 11/24/19 0014 Order Status: Completed Lab Status: Final result Updated: 11/26/19 1136 Specimen: Body Fluid from Sputum, Expectorated Culture 4+ Pseudomonas putida 4+ Usual Respiratory Kylee Gram Stain Result 4+ White Blood Cells 2+ Epithelial cells 4+ Gram positive cocci 1+ Yeast Susceptibility Pseudomonas putida (1) Antibiotic Interpretation Microscan Method Status Ceftazidime Sensitive <=1 ug/mL Not Specified Final Ceftriaxone Sensitive 8 ug/mL Not Specified Final Ciprofloxacin Sensitive <=0.25 ug/mL Not Specified Final Gentamicin Sensitive <=1 ug/mL Not Specified Final Meropenem Sensitive <=0.25 ug/mL Not Specified Final Tobramycin Sensitive <=1 ug/mL Not Specified Final Trimethoprim + Sulfamethoxazole Sensitive <=20 ug/mL Not Specified Final Relevant cultures from previous admits: Date Source Organisms Sensitivities 11/24/19 resp Pseudomonas putida pansensitive 11/18/19 urine E. coli pansensitive Enterococcus faecalis pansensitive 08/21/19 urine Enterococcus faecium Sens: amp, pen, vanco E.coli pansensitive 07/21/19 resp Pseudomonas aeruginosa pansensitive Admission Wt: 53.1 kg Current Wt: Min/Max Temp past 24 hours:Temp Av.4 C (97.6 F) Min: 35.9 C (96.7 F) Max: 3 7.1 C (98.8 F) Estimated Creatinine Clearance: 52 mL/min (based on SCr of 0.61 mg/dL). Intake/Output Summary (Last 24 hours) at 12/06/2019 0421 Last data filed at 12/06/2019 0315 Gross per 24 hour Intake 796 ml Output 1450 ml Net -654 ml Temp: [35.9 C (96.7 F)-37.1 C (98.8 F)] 36.8 C (98.2 F) Pulse: [76-98] 98 Resp: [20-26] 24 BP: (118-176)/(58-88) 148/72 Recent Labs Lab 12/06/19 0350 12/06/19 0214 12/05/19 1346 12/05/19 0447 12/04/19 1317 12/04/19 0431 12/03/19 1311 12/03/19 0629 12/02/19 0546 12/01/19 1021 WBC 11.3* -- -- 11.4* -- 12.8* -- 12.3* 9.7 < > -- CREA 0.61 -- -- 0.58 -- 0.57 -- 0.67 0.62 < > -- VANCOTROUGH -- 18.8* 17.0* -- 12.0* -- -- -- -- -- -- VANCORANDOM -- -- -- -- -- -- 11.1 -- -- -- -- PROCALCITONI -- -- -- -- -- -- -- -- -- -- 0.07 < > = values in this interval not displayed. Imagin/26: CXR - pulmonary venous congestion; prominent pulmonary arteries indicating pulmonary htn 12/01 CT Chest: MUCOUS PLUGGING WITHIN RIGHT-SIDED AIRWAYS WITH EXTENSIVE CLUSTERED NODULAR ITY INVOLVING PORTIONS OF BOTH LUNGS AND PATCHY CONSOLIDATION/GROUND GLASS OPACITY IN THE UPPER LOBES, CONSISTENT WITH MULTIFOCAL LIKELY AIRWAY CENTERED INFECTI ON. A VERY SMALL RIGHT PLEURAL EFFUSION IS ALSO PRESENT. VASCULAR CALCIFICATION WITH SIMILAR ASCENDING AORTIC DILATION UP TO A DIAMETER OF 4 CM, AND MAIN PULMONARY ARTERY ENLARGEMENT SUGGESTING PULMONARY ARTERIAL HYPERTENSION. Date 12/01 12/02 12/03 12/04 12/05 12/06 12/07 Time of Vancomycin draw -- -- 1311 1317 1346 0214 1530 Vancomycin result -- -- 11.1 12.0 17 18.8 LEVEL or TROUGH -- -- LEVEL TROUGH TROUGH TROUGH TROUGH Serum Creatinine 0.70 0.62 0.67 0.57 0.58 0.61 CrCl (mL/min) 46 52 48 56 55 52 Vanco load/bolus - mg -- -- -- -- -- Vanco dose - current -- 1000 mg q24h 1000 mg q24h 1g q24h 600mg q12h 600 mg q12h Vanco dose - new 1000 mg q24hr -- -- 600mg q12h No change No change Assessment: Vancomycin Day #5 Other antibiotics: Target Trough: 15-20, pna WBC: 11.3 (H), trending slowly down; Renal: stable; Temp: afebrile; Culture: 12/01 blood- NGTD; 11/24 resp -pseudomonas putida; 12/04 MRSA in sputum; MRSA nares+ VS: tachypnic, 2 lpm n c, occassionally tachycardic Renal function: UOP: Urine output good @ 1.1 ml/kg/hr, improved Plan: 1. Continue vanco 600mg q12h 2. Vancomycin TROUGH ordered for 12/07/19 @ 1530 (draw 60 minutes prior to hanging the next 4 th dose) 3. Serum creatinine DAILY for first 3 [...] Dosing and Monitoring Protocol Electronically signed by: Santiago Alcocer PharmD 12/06/2019 4:21 AM Landon Cooper PharmD - 12/05/2019 2:52 PM PST . VANCOMYCIN PER PHARMACY PROTOCOL: AMS/Drug Name - vancomycin Patient: Ángela Crowley [id number] Admit: 12/01/2019 10:10 AM RELEVANT ALLERGIES: metronidazole, sulfa antibiotics 89 yrs old female patient admitted on 12/01/2019 for pneumonia and influenza A. 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 . Risk factors for MDR organisms include: recent healthcare contact. HPI: increasing shortness of breath and wheezing. She is normally on 2L of O2 via NC at all times. Now having severe shortness of breath and wheezing and unable to live at home with h er son. Recent admit for similar symptoms and also found to have influenza A. Now symptoms a re worsening. Antimicrobials - Current Antibiotic Dates of Therapy vancomycin 12/01- Antimicrobials - Discontinued Antibiotic Dates of Therapy Augmentin 11/24-11/27 azithromycin 11/18-11/23 oseltamivir 11/18-11/24 cefdinir 11/23 x1 dose levoflox 12-01- Historical Vancomycin dosing (previous & current encounter): none Micro/Cultures/Diagnostics: Microbiology Results (Last 14 Days by Collected Date with Culture/Sensitivity) Procedure Component Value Units Date/Time Culture, MRSA [[id number]] Collected: 12/04/19 1324 Order Status: Completed Lab Status: Final result Updated: 12/05/19 0724 Specimen: Tissue from Nares Culture 4+ Staphylococcus aureus,Methicillin resistant (MRSA) Comment: *INFECTION PREVENTION ALERT - MRSA* CONTACT PRECAUTIONS REQUIRED. Culture, Respiratory, Lower, Smear [[id number]] (Susceptibility) Collected: 12/03/19 1527 Order Status: Completed Lab Status: Final result Updated: 12/05/19 1416 Specimen: Body Fluid from Sputum, Expectorated Culture 4+ Staphylococcus aureus,Methicillin resistant (MRSA) Comment: *INFECTION PREVENTION ALERT - MRSA* CONTACT PRECAUTIONS REQUIRED. Gram Stain Result 3+ White Blood Cells 2+ Gram positive cocci Susceptibility Staphylococcus aureus,Methicillin [...] Vancomycin Sensitive 1 ug/mL Not Specified Final Respiratory pathogen panel, NAAT [[id number]] (Abnormal) Collected: 12/01/19 1730 Order Status: Completed Lab Status: Final result Updated: 12/01/19 2103 Specimen: Body Fluid from Nasopharynx Parainfluenza 1 Not Detected Adenovirus Not Detected Human Metapneumovirus Not Detected Rhinovirus/Enterovirus Detected Parainfluenza 3 Not Detected Culture, Blood [[id number]] Collected: 12/01/19 1234 Order Status: Completed Lab Status: Preliminary result Updated: 12/04/19 1241 Specimen: Peripheral Blood Culture No growth: Monitored continually by instrument for 5 days Culture, Blood [[id number]] Collected: 12/01/19 1234 Order Status: Completed Lab Status: Preliminary result Updated: 12/04/19 1241 Specimen: Blood from Line Culture No growth: Monitored continually by instrument for 5 days Gram Stain, reflex Sputum Culture [[id number]] Order Status: No result Lab Status: No result Specimen: Body Fluid from Sputum, Expectorated Culture, Respiratory, Lower, Smear [[id number]] (Susceptibility) Collected: 11/24/19 0014 Order Status: Completed Lab Status: Final result Updated: 11/26/19 1136 Specimen: Body Fluid from Sputum, Expectorated Culture 4+ Pseudomonas putida 4+ Usual Respiratory Kylee Gram Stain Result 4+ White Blood Cells 2+ Epithelial cells 4+ Gram positive cocci 1+ Yeast Susceptibility Pseudomonas putida (1) Antibiotic Interpretation Microscan Method Status Ceftazidime Sensitive <=1 ug/mL Not Specified Final Ceftriaxone Sensitive 8 ug/mL Not Specified Final Ciprofloxacin Sensitive <=0.25 ug/mL Not Specified Final Gentamicin Sensitive <=1 ug/mL Not Specified Final Meropenem Sensitive <=0.25 ug/mL Not Specified Final Tobramycin Sensitive <=1 ug/mL Not Specified Final Trimethoprim + Sulfamethoxazole Sensitive <=20 ug/mL Not Specified Final Relevant cultures from previous admits: Date Source Organisms Sensitivities 11/24/19 resp Pseudomonas putida pansensitive 11/18/19 urine E. coli pansensitive Enterococcus faecalis pansensitive 08/21/19 urine Enterococcus faecium Sens: amp, pen, vanco E.coli pansensitive 07/21/19 resp Pseudomonas aeruginosa pansensitive Admission Wt: 53.1 kg Current Wt: Min/Max Temp past 24 hours:Temp Av.6 C (97.8 F) Min: 36.1 C (97 F) Max: 37. 1 C (98.8 F) Estimated Creatinine Clearance: 55 mL/min (based on SCr of 0.58 mg/dL). Intake/Output Summary (Last 24 hours) at 12/05/2019 1452 Last data filed at 12/05/2019 1130 Gross per 24 hour Intake 974 ml Output 975 ml Net -1 ml Temp: [36.1 C (97 F)-37.1 C (98.8 F)] 36.1 C (97 F) Pulse: [76-97] 88 Resp: [16-32] 20 BP: (136-185)/(64-86) 148/78 Recent Labs Lab 12/05/19 1346 12/05/19 0447 12/04/19 1317 12/04/19 0431 12/03/19 1311 12/03/19 0629 12/02/19 0546 12/01/19 1041 12/01/19 1021 WBC -- 11.4* -- 12.8* -- 12.3* 9.7 11.2* -- CREA -- 0.58 -- 0.57 -- 0.67 0.62 0.70 -- VANCOTROUGH 17.0* -- 12.0* -- -- -- -- -- -- VANCORANDOM -- -- -- -- 11.1 -- -- -- -- PROCALCITONI -- -- -- -- -- -- -- -- 0.07 Imagin/26: CXR - pulmonary venous congestion; prominent pulmonary arteries indicating pulmonary htn 12/01 CT Chest: MUCOUS PLUGGING WITHIN RIGHT-SIDED AIRWAYS WITH EXTENSIVE CLUSTERED NODULAR ITY INVOLVING PORTIONS OF BOTH LUNGS AND PATCHY CONSOLIDATION/GROUND GLASS OPACITY IN THE UPPER LOBES, CONSISTENT WITH MULTIFOCAL LIKELY AIRWAY CENTERED INFECTI ON. A VERY SMALL RIGHT PLEURAL EFFUSION IS ALSO PRESENT. VASCULAR CALCIFICATION WITH SIMILAR ASCENDING AORTIC DILATION UP TO A DIAMETER OF 4 CM, AND MAIN PULMONARY ARTERY ENLARGEMENT SUGGESTING PULMONARY ARTERIAL HYPERTENSION. Date 12/01 12/02 12/03 12/04 12/05 Time of Vancomycin draw -- -- 1311 1300 1400 Timed 0200 Vancomycin result -- -- 11.1 12.0 17 LEVEL or TROUGH -- -- LEVEL TROUGH trough Serum Creatinine 0.70 0.62 0.67 0.57 0.58 CrCl (mL/min) 46 52 48 56 55 Vanco load/bolus - mg -- -- Vanco dose - current -- 1000 mg q24h 1000 mg q24h 1g q24h 600mg q12h Vanco dose - new 1000 mg q24hr -- -- 600mg q12h No change Assessment: Vancomycin Day #5 Other antibiotics: Target Trough: 15-20, pna WBC: 11.4 ; Renal: stable; Temp: afebrile; Culture: 12/01 blood-NGTD; 11/24 resp -pseudom onas putida; 12/04 MRSA in sputum VS: wnl Renal function: UOP: 0.6 mL/kg/hr, but patient also has unmeasured UOP Plan: 1. Continue vanco 600mg q12h 2. Vancomycin TROUGH ordered for 12/06/19 @ 0200 (draw 60 minutes prior to hanging the 4th d ose) 3. Serum creatinine DAILY for first 3 [...] Dosing and Monitoring Protocol Electronically signed by: Landon Baca PharmD 12/05/2019 2:52 PM Sharon Hector MD - 12/05/2019 12:13 PM PST [place], [place] HOSPITALIST PROGRESS NOTE Patient: Ángela Crowley : 1930: Age: 89 y.o. MedRec: [id number] Admission date: 12/01/2019 Hospital day # : 4 Physician author: Sharon Robles MD Today: 12/05/2019 Assessment and Hospital Course Active Hospital Problems Diagnosis Pneumonia Resolved Hospital Problems No resolved problems to display. 89 yo F with history of COPD with 2-3L oxygen requirement and chronic steroid use, TAVR, wh o presented with generalized weakness and productive cough. Plan #Bilateral multifocal staph aureus pneumonia (suspect MRSA) #Rhinovirus upper respiratory tract infection #Possible COPD exacerbation #Chronic respiratory failure Imaging showed mucus plugging, patchy consolidations. History of COPD with 2-3L oxygen use at home. Chronic prednisone and budesonide use at home. Switch steroid to oral prednisone at this point, patient is at her baseline oxygen requirement. Continue vancomycin, deescalate once sensitivities are back. 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 IV iron had been recommended previously. Transfused 1u PRBC 12/03. Hgb down to 9 today, her transfusion threshold is 8. #Gastritis history On PPI and famotidine. #History TAVR #Chronic congestive heart failure No e/o decompensation currently despite elevated BNP. Continue home medications. Resumed aspirin . #Urinary incontinence Continue oxybutynin #Mood d/o Continue Lexapro #Sacral decub Continue wound care #Hypertension Somewhat labile blood pressures but overall controlled. D/w son by phone yesterday, he expl ained that she has been on both metop and coreg for quite some time and this is the only marcelino ution they've found for her blood pressures. CCM. CTM. #Moderate protein calorie malnutrition I attest that this clinical assessment using ASPEN criteria 1 is accurate for this patient and supports that as a medical diagnosis. A specific nutrition treatment plan will be imple mented as outlined in the registered dietitian's plan of care. Nutrition Diagnosis: Moderate protein-calorie malnutrition Type, Moderate: Chronic illness(COPD) Energy Intake: Less than or equal to 75% energy intake compared to estimated needs for grea ter than or equal to 1 month Body Fat: Moderate depletion (NFPE shows wasting orbital tricpes and ribs) Muscle Mass: Moderate depletion (NFPE shows wasting in temples, clavicles, shoulders) FEN: cardiac Ppx: SCD Disposition: pending clinical course Subjective CC: need to defecate Patient seen while on the commode, about to have a bowel movement. Denies complaints aside from feeling constipated (resolved with suppository). Denies shortness of breath. Denies diz ziness. Updated patient's son by phone ROS was performed and was negative except as noted above. Exam Gen: chronically ill appearing, very [place], NAD HEENT: MMM, neck supple CV: regular rate and rhythm no m/r/g Pulm: coarse breath sounds at bilateral bases, no wheezing, normal effort - again unchanged from yesterday Abdominal: soft, nontender, nondistended, normal bowel tones Extremities: well perfused, trace dependent edema Skin: warm, dry, no rashes Neuro: alert, no focal deficits aside from difficulty hearing Psych: normal mood and affect Allergies: Allergies Allergen Reactions Metronidazole GI Upset Flagyl [Metronidazole] Nausea And Vomiting and GI Upset Percocet [Oxycodone] Unknown Pregabalin Unknown Lyrica Sulfa Antibiotics Unknown Current Medications: Current Facility-Administered Medications Medication Dose Route Frequency Provider Last Rate Last Dose acetaminophen (TYLENOL) tablet 650 mg 650 mg Oral Q6H PRN Aida Mills MD albuterol-ipratropium 2.5-0.5 mg/3 mL nebulizer solution 3 mL 3 mL Nebulization RT 4x DAILY Aida Mills MD 3 mL at 12/05/19 1150 aspirin chewable tablet 81 mg 81 mg Oral Daily Aida Mills MD 81 mg at 12/05/19 080 9 atorvaSTATin (LIPITOR) tablet 20 mg 20 mg Oral JOHN Mills MD 20 mg at 12/05/19 0809 bisacodyl (DULCOLAX) suppository 10 mg 10 mg Rectal Daily PRN Sharon Robles MD 10 mg at 12/05/19 1052 brimonidine (ALPHAGAN) 0.2% ophthalmic solution 1 drop 1 drop Both Eyes BID Aida hernandez MD 1 drop at 12/05/19 0810 budesonide (PULMICORT) nebulizer solution 0.5 mg 0.5 mg Nebulization RT BID Sharon gastelum MD 0.5 mg at 12/05/19 0750 calcium carbonate (TUMS) chewable tablet 1,000 mg 1,000 mg Oral Q8H PRN Jazz Begum D 1,000 mg at 12/04/19 1321 carvedilol (COREG) tablet 6.25 mg 6.25 mg Oral BID WC Aida Mills MD 6.25 mg at 10/25 0809 dicyclomine (BENTYL) capsule 10 mg 10 mg Oral Daily PRN Aida Mills MD docusate sodium (COLACE) capsule 500 mg 500 mg Oral QAM Aida Mills MD 500 mg at 0809 dorzolamide (TRUSOPT) 2% ophthalmic solution 1 drop 1 drop Both Eyes BID Aida Mills MD 1 drop at 12/05/19 0810 escitalopram (LEXAPRO) tablet 10 mg 10 mg Oral Daily Aida Mills MD 10 mg at 0809 famotidine (PEPCID) tablet 20 mg 20 mg Oral Nightly Autumn Sutherland PharmD 20 mg at 12/04/192030 ferrous sulfate tablet 325 mg 325 mg Oral Daily with breakfast Aida Mills MD 325 m g at 12/05/19 0809 furosemide (LASIX) tablet 20 mg 20 mg Oral BID (8 and 18) Aida Mills MD 20 mg at 0 12/05/19 0809 guaiFENesin (MUCINEX) ER tablet 600 mg 600 mg Oral BID Aida Mills MD 600 mg at 10/25 0809 HYDROcodone-acetaminophen (NORCO) 7.5-325 mg per tablet 1 tablet 1 tablet Oral Q6H PRN Aida Mills MD 1 tablet at 12/05/19 0910 lactobacillus GG-inulin (CULTURELLE) capsule 1 capsule 1 capsule Oral BID Autumn Pérez ma, PharmD 1 capsule at 12/05/19 0809 latanoprost (XALATAN) 0.005% ophthalmic solution 1 drop 1 drop Both Eyes Nightly Gagandeep Mills MD 1 drop at 12/04/192032 levalbuterol (XOPENEX) 1.25 mg/3 mL nebulizer solution 1.25 mg 1.25 mg Nebulization RT Q4H PRN Aida Mills MD 1.25 mg at 12/05/19 1028 metoprolol succinate (TOPROL-XL) ER tablet 25 mg 25 mg Oral Nightly Aida Mills MD 25 mg at 12/04/19 2030 nitroglycerin (NITROSTAT) SL tablet 0.4 mg 0.4 mg Sublingual Q5 Min PRN Jazz Begum D ondansetron (ZOFRAN ODT) disintegrating tablet 4 mg 4 mg Oral Q6H PRN Aida Mills MD 4 mg at 12/03/19 1209 oxybutynin (DITROPAN XL) ER tablet 5 mg 5 mg Oral BID Aida Mills MD 5 mg at 0809 pantoprazole (PROTONIX) DR tablet 40 mg 40 mg Oral QAM AC Aida Mills MD 40 mg at 0 12/05/19 0647 polyethylene glycol (MIRALAX) powder 17 g 17 g Oral Daily PRN Aida Mills MD 17 g a t 12/05/19 1115 polyvinyl alcohol (LIQUITEARS) 1.4% ophthalmic solution 2 drop 2 drop Both Eyes QAM AC Aida Mills MD 2 drop at 12/05/19 0648 predniSONE (DELTASONE) tablet 40 mg 40 mg Oral Daily Sharon Robles MD 40 mg at 12/04 0809 prochlorperazine tablet 10 mg 10 mg Oral Q8H PRN Aida Mills MD senna (SENOKOT) tablet 8.6-17.2 mg 8.6-17.2 mg Oral BID PRN Aida Mills MD vancomycin 600 mg in sodium chloride 0.9% 250 mL IVPB 600 mg Intravenous Q12H Sharon sultana MD 256 mL/hr at 12/05/19 0251 600 mg at 12/05/19 0251 vancomycin per pharmacy Other Pharmacy Consult Aida Mills MD Current Infusions: Objective Data Point of care glucose No results for input(s): POCGLU in the last 168 hours. Labs last 24 hours Recent Results (from the past 24 hour(s)) Vancomycin, Trough Collection Time: 12/04/19 1:17 PM Result Value Ref Range Date of Last Dose Time of Last Dose Vancomycin Trough 12.0 (H) 5.0 - 10.0 ug/mL Culture, MRSA Collection Time: 12/04/19 1:24 PM Result Value Ref Range Culture 4+ Staphylococcus aureus,Methicillin resistant (MRSA) ECG 12 lead Collection Time: 12/04/19 3:45 PM Result Value Ref Range VENTRICULAR RATE EKG 90 BPM ATRIAL RATE 90 BPM P-R INTERVAL 122 ms QRS DURATION 90 ms Q-T INTERVAL 346 ms Q-T INTERVAL (CORRECTED) 423 ms P WAVE AXIS 66 degrees QRS AXIS 60 degrees T AXIS 74 degrees INTERPRETATION TEXT Normal sinus rhythm Left ventricular hypertrophy When compared with ECG of 01-DEC-2019 10:32, No significant change was found Confirmed by UMESH JOSEPH, LEONIDAS ([id number]) on 12/05/2019 7:17:50 AM Basic Metabolic Panel Collection Time: 12/05/19 4:47 AM Result Value Ref Range Na 143 136 - 145 mmol/L K 3.9 3.4 - 5.1 mmol/L Cl 102 98 - 107 mmol/L CO2 38 (H) 20 - 31 mmol/L Anion Gap 3 3 - 16 mmol/L Glucose 80 60 - 106 mg/dL BUN 19 9 - 23 mg/dL Creatinine 0.58 0.55 - 1.02 mg/dL eGFR if not >60 >=60 mL/min/1.73m2 Calcium 7.6 (L) 8.7 - 10.4 mg/dL BUN/Creatinine Ratio 32.8 Magnesium Collection Time: 12/05/19 4:47 AM Result Value Ref Range Magnesium 1.8 1.6 - 2.6 mg/dL CBC no Differential Collection Time: 12/05/19 4:47 AM Result Value Ref Range WBC 11.4 (H) 4.0 - 11.0 K/uL RBC 3.00 (L) 3.70 - 5.20 M/uL Hemoglobin 9.0 (L) 11.5 - 16.0 g/dL Hematocrit 29.2 (L) 34.0 - 47.0 % MCV 97.3 83.0 - 101.0 fL MCH 30.0 28.0 - 35.0 pg MCHC 30.8 (L) 32.0 - 36.0 g/dL RDW-CV 15.4 (H) <15.0 % RDW-SD 55.3 (H) 35.1 - 46.3 fL Platelet Count 149 140 - 440 K/uL MPV 10.3 6.5 - 12.4 fL % nRBC 0 0 - 2 per 100 WBCs Absolute nRBC 0.00 0.00 - 0.01 K/uL Red Blood Cells (PRBC) - Crossmatch Collection Time: 12/05/19 5:43 AM Result Value Ref Range Product Code O8846I30 UNIT # [id number] UNIT ABO A UNIT RH POS CROSSMATCH INTERP Compatible Unit Status Returned Blood Product ABORh APOS Blood Product Expiration Date and Time Product Blood Type Barcode 6200 Micro results (more choices using dot micro) Microbiology Results (72 hrs) Procedure Component Value Units Date/Time Culture, MRSA [[id number]] Collected: 12/04/19 1324 Order Status: Completed Lab Status: Final result Updated: 12/05/19723 Specimen: Tissue from Nares Culture 4+ Staphylococcus aureus,Methicillin resistant (MRSA) Comment: *INFECTION PREVENTION ALERT - MRSA* CONTACT PRECAUTIONS REQUIRED. Culture, Respiratory, Lower, Smear [[id number]] Collected: 12/03/19 1527 Order Status: Completed Lab Status: Preliminary result Updated: 12/04/19 0935 Specimen: Body Fluid from Sputum, Expectorated Culture 4+ Staphylococcus aureus Comment: Presumptive identification Identification and susceptibility to follow. Gram Stain Result 3+ White Blood Cells 2+ Gram positive cocci Radiology results (more choices using dot risresults) Xr Chest Ap Portable Result Date: 12/03/2019 EXAM: XR CHEST AP PORTABLE dated 12/03/2019 1:08 PM HISTORY: picc placement Comparison: 11/27 TECHNIQUE: A single portable view of the chest. FINDINGS: Interval placement of a righ t approach PICC line catheter. The tip is in the distal superior vena cava. This could be advanced x 1.5 cm and secured. No pneumothorax. The exam is otherwise unchanged. Right approach PICC line catheter. No radiographic evidence for a postprocedural complicat ion. Dictated and Signed by: Edwin Jarrell MD Electronically signed: 12/03/2019 1:17 PM Vitals Ranges: Temp: [36.2 C (97.2 F)-37.1 C (98.8 F)] 37.1 C (98.8 F) Pulse: [76-97] 81 Resp: [16-32] 20 BP: (136-185)/(64-86) 150/72 Vitals: Temp: 37.1 C (98.8 F) BP: 150/72 Pulse: 81 Resp: 20 SpO2: 93 % SpO2 93 % on nasal cannula at flow rate 2L/min Sharon Robles MD 12/05/2019 12:13 PM [facility] Sharon Hector MD - 2:31 PM PST [facility] HOSPITALIST PROGRESS NOTE Patient: Ángela Crowley : 1930: Age: 89 y.o. MedRec: [id number] Admission date: 12/01/2019 Hospital day # : 3 Physician author: Sharon Robles MD Today: 12/04/2019 Assessment and Hospital Course Active Hospital Problems Diagnosis Pneumonia Resolved Hospital Problems No resolved problems to display. 89 yo F with history of COPD with 2-3L oxygen requirement and chronic steroid use, TAVR, wh o presented with generalized weakness and productive cough. Plan #Bilateral multifocal staph aureus pneumonia #Rhinovirus upper respiratory tract infection #Possible COPD exacerbation #Chronic respiratory failure Imaging showed mucus plugging, patchy consolidations. History of COPD with 2-3L oxygen use at home. Chronic prednisone and budesonide use at home. Continue solumedrol, decrease dose s lightly with no wheezing present on exam. Continue vancomycin, DC levaquin given staph aureu s on sputum culture (sensitivites pending). 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 IV iron had been recommended previously. Transfused 1u PRBC 12/03, d/w patient's son. #Gastritis history On PPI and famotidine. #History TAVR #Chronic congestive heart failure No e/o decompensation currently despite elevated BNP. Continue home medications. Resumed aspirin today. #Urinary incontinence Continue oxybutynin #Mood d/o Continue Lexapro #Sacral decub Continue wound care #Moderate protein calorie malnutrition I attest that this clinical assessment using ASPEN criteria 1 is accurate for this patient and supports that as a medical diagnosis. A specific nutrition treatment plan will be imple mented as outlined in the registered dietitian's plan of care. Nutrition Diagnosis: Moderate protein-calorie malnutrition Type, Moderate: Chronic illness(COPD) Energy Intake: Less than or equal to 75% energy intake compared to estimated needs for grea ter than or equal to 1 month Body Fat: Moderate depletion (NFPE shows wasting orbital tricpes and ribs) Muscle Mass: Moderate depletion (NFPE shows wasting in temples, clavicles, shoulders) FEN: cardiac Ppx: SCD Disposition: pending clinical course Subjective CC: chills Patient reports is "not having a good day" because she is cold and wants another blanket, w as displeased with her lunch. Thinks her breathing "feels ok." Updated patient's son by phone ROS was performed and was negative except as noted above. Exam Gen: chronically ill appearing, NAD HEENT: MMM, neck supple CV: regular rate and rhythm no m/r/g Pulm: coarse breath sounds at bilateral bases, no wheezing, normal effort - unchanged from yesterday Abdominal: soft, nontender, nondistended, normal bowel tones Extremities: well perfused, trace dependent edema Skin: warm, dry, no rashes Neuro: alert, no focal deficits Psych: normal mood and affect Allergies: Allergies Allergen Reactions Metronidazole GI Upset Flagyl [Metronidazole] Nausea And Vomiting and GI Upset Percocet [Oxycodone] Unknown Pregabalin Unknown Lyrica Sulfa Antibiotics Unknown Current Medications: Current Facility-Administered Medications Medication Dose Route Frequency Provider Last Rate Last Dose acetaminophen (TYLENOL) tablet 650 mg 650 mg Oral Q6H PRN Aida Mills MD albuterol-ipratropium 2.5-0.5 mg/3 mL nebulizer solution 3 mL 3 mL Nebulization RT 4x DAILY Aida Mills MD 3 mL at 12/04/19 1119 aspirin chewable tablet 81 mg 81 mg Oral Daily Aida Mills MD 81 mg at 12/04/19 085 1 atorvaSTATin (LIPITOR) tablet 20 mg 20 mg Oral JOHN Mills MD 20 mg at 12/04/19 0851 brimonidine (ALPHAGAN) 0.2% ophthalmic solution 1 drop 1 drop Both Eyes BID Aida hernandez MD 1 drop at 12/04/19 0901 budesonide (PULMICORT) nebulizer solution 0.5 mg 0.5 mg Nebulization RT BID Sharon gastelum MD 0.5 mg at 12/04/19 0729 calcium carbonate (TUMS) chewable tablet 1,000 mg 1,000 mg Oral Q8H PRN Jazz Begum D 1,000 mg at 12/04/19 1321 carvedilol (COREG) tablet 6.25 mg 6.25 mg Oral BID WC Aida Mills MD 6.25 mg at 0841 dicyclomine (BENTYL) capsule 10 mg 10 mg Oral Daily PRN Aida Mills MD docusate sodium (COLACE) capsule 500 mg 500 mg Oral JOHN Mills MD 500 mg at 0851 dorzolamide (TRUSOPT) 2% ophthalmic solution 1 drop 1 drop Both Eyes BID Aida Mills MD 1 drop at 12/04/19 0900 escitalopram (LEXAPRO) tablet 10 mg 10 mg Oral Daily Aida Mills MD 10 mg at 0851 famotidine (PEPCID) tablet 20 mg 20 mg Oral Nightly Autumn Sutherland PharmD 20 mg at 12/03/19 2213 ferrous sulfate tablet 325 mg 325 mg Oral Daily with breakfast Aida Mills MD 325 m g at 12/04/19 0841 furosemide (LASIX) tablet 20 mg 20 mg Oral BID (8 and 18) Aida Mills MD 20 mg at 0 12/04/19 0841 guaiFENesin (MUCINEX) ER tablet 600 mg 600 mg Oral BID Aida Mills MD 600 mg at 0851 HYDROcodone-acetaminophen (NORCO) 7.5-325 mg per tablet 1 tablet 1 tablet Oral Q6H PRN Aida Mills MD 1 tablet at 12/04/19 1321 lactobacillus GG-inulin (CULTURELLE) capsule 1 capsule 1 capsule Oral BID Autumn Pérez ma, PharmD 1 capsule at 12/04/19 0852 latanoprost (XALATAN) 0.005% ophthalmic solution 1 drop 1 drop Both Eyes Nightly Gagandeep Mills MD 1 drop at 12/02/19 2031 levalbuterol (XOPENEX) 1.25 mg/3 mL nebulizer solution 1.25 mg 1.25 mg Nebulization RT Q4H PRN Aida iMlls MD 1.25 mg at 12/03/19 1839 methylPREDNISolone sodium succinate (solu-MEDROL) 40 mg/mL injection 40 mg 40 mg Intra venous BID Sharon Robles MD 40 mg at 12/04/19 0843 metoprolol succinate (TOPROL-XL) ER tablet 25 mg 25 mg Oral Nightly Aida Mills MD 25 mg at 12/03/19 2212 nitroglycerin (NITROSTAT) SL tablet 0.4 mg 0.4 mg Sublingual Q5 Min PRN Jazz Begum ondansetron (ZOFRAN ODT) disintegrating tablet 4 mg 4 mg Oral Q6H PRN Aida Mills MD 4 mg at 12/03/19 1209 oxybutynin (DITROPAN XL) ER tablet 5 mg 5 mg Oral BID Aida Mills MD 5 mg at 0852 pantoprazole (PROTONIX) DR tablet 40 mg 40 mg Oral QAM AC Aida Mills MD Stopped at 12/04/19 0730 polyethylene glycol (MIRALAX) powder 17 g 17 g Oral Daily PRN Aida Mills MD polyvinyl alcohol (LIQUITEARS) 1.4% ophthalmic solution 2 drop 2 drop Both Eyes QAM AC Aida Mills MD Stopped at 12/04/19 0730 prochlorperazine tablet 10 mg 10 mg Oral Q8H PRN Aida Mills MD senna (SENOKOT) tablet 8.6-17.2 mg 8.6-17.2 mg Oral BID PRN Aida Mills MD vancomycin 600 mg in sodium chloride 0.9% 250 mL IVPB 600 mg Intravenous Q12H Sharon sultana MD vancomycin per pharmacy Other Pharmacy Consult Aida Mills MD Current Infusions: Objective Data Point of care glucose No results for input(s): POCGLU in the last 168 hours. Labs last 24 hours Recent Results (from the past 24 hour(s)) Culture, Respiratory, Lower, Smear Collection Time: 12/03/19 3:27 PM Result Value Ref Range Culture 4+ Staphylococcus aureus Gram Stain Result 3+ White Blood Cells Gram Stain Result 2+ Gram positive cocci Red Blood Cells (PRBC) - Crossmatch Collection Time: 12/03/19 5:11 PM Result Value Ref Range Product Code X7756F41 UNIT # [id number] UNIT ABO A UNIT RH POS CROSSMATCH INTERP Compatible Unit Status Crossmatched Blood Product ABORh APOS Blood Product Expiration Date and Time Product Blood Type Barcode 6200 Red Blood Cells (PRBC) - Crossmatch Collection Time: 12/03/19 10:37 PM Result Value Ref Range Product Code C0804P04 UNIT # [id number] UNIT ABO A UNIT RH POS CROSSMATCH INTERP Compatible Unit Status Issued Blood Product Miguel OCHOA Blood Product Expiration Date and Time [id number] Product Blood Type Barcode 6200 Basic Metabolic Panel Collection Time: 12/04/19 4:31 AM Result Value Ref Range Na 145 136 - 145 mmol/L K 3.7 3.4 - 5.1 mmol/L Cl 104 98 - 107 mmol/L CO2 38 (H) 20 - 31 mmol/L Anion Gap 3 3 - 16 mmol/L Glucose 99 60 - 106 mg/dL BUN 20 9 - 23 mg/dL Creatinine 0.57 0.55 - 1.02 mg/dL eGFR if not >60 >=60 mL/min/1.73m2 Calcium 8.3 (L) 8.7 - 10.4 mg/dL BUN/Creatinine Ratio 35.1 Magnesium Collection Time: 12/04/19 4:31 AM Result Value Ref Range Magnesium 1.8 1.6 - 2.6 mg/dL CBC no Differential Collection Time: 12/04/19 4:31 AM Result Value Ref Range WBC 12.8 (H) 4.0 - 11.0 K/uL RBC 3.19 (L) 3.70 - 5.20 M/uL Hemoglobin 9.6 (L) 11.5 - 16.0 g/dL Hematocrit 31.1 (L) 34.0 - 47.0 % MCV 97.5 83.0 - 101.0 fL MCH 30.1 28.0 - 35.0 pg MCHC 30.9 (L) 32.0 - 36.0 g/dL RDW-CV 15.6 (H) <15.0 % RDW-SD 55.8 (H) 35.1 - 46.3 fL Platelet Count 175 140 - 440 K/uL MPV 10.0 6.5 - 12.4 fL % nRBC 0 0 - 2 per 100 WBCs Absolute nRBC 0.00 0.00 - 0.01 K/uL Vancomycin, Trough Collection Time: 12/04/19 1:17 PM Result Value Ref Range Date of Last Dose Time of Last Dose Vancomycin Trough 12.0 (H) 5.0 - 10.0 ug/mL Micro results (more choices using dot micro) Microbiology Results (72 hrs) Procedure Component Value Units Date/Time Culture, MRSA [[id number]] Collected: 12/04/19 1324 Order Status: Sent Lab Status: In process Updated: 12/04/19 1327 Specimen: Tissue from Nares Culture, Respiratory, Lower, Smear [[id number]] Collected: 12/03/19 1527 Order Status: Completed Lab Status: Preliminary result Updated: 12/04/19 0935 Specimen: Body Fluid from Sputum, Expectorated Culture 4+ Staphylococcus aureus Comment: Presumptive identification Identification and susceptibility to follow. Gram Stain Result 3+ White Blood Cells 2+ Gram positive cocci Respiratory pathogen panel, NAAT [[id number]] (Abnormal) Collected: 12/01/19 1730 Order Status: Completed Lab Status: Final result Updated: 12/01/19 210 Specimen: Body Fluid from Nasopharynx Parainfluenza 1 Not Detected Adenovirus Not Detected Human Metapneumovirus Not Detected Rhinovirus/Enterovirus Detected Parainfluenza 3 Not Detected Radiology results (more choices using dot risresults) Xr Chest Ap Portable Result Date: 12/03/2019 EXAM: XR CHEST AP PORTABLE dated 12/03/2019 1:08 PM HISTORY: picc placement Comparison: 11/27 TECHNIQUE: A single portable view of the chest. FINDINGS: Interval placement of a righ t approach PICC line catheter. The tip is in the distal superior vena cava. This could be advanced x 1.5 cm and secured. No pneumothorax. The exam is otherwise unchanged. Right approach PICC line catheter. No radiographic evidence for a postprocedural complicat ion. Dictated and Signed by: Edwin Jarrell MD Electronically signed: 12/03/2019 1:17 PM Xr Chest 2 Vws Result Date: 12/03/2019 XR CHEST 2 VIEWS 12/03/2019 9:08 AM HISTORY: interval change mucous plug R > L CAP. COMPARIS ON: Multiple priors. Findings: Heart size is at the upper limits of normal. There is atheros clerosis of the aorta. A stent is noted over the lower aorta. Central pulmonary vasculature is normal. Again visualized are mild scattered patchy airspace disease of the bilateral lung s with predominance in the upper lobes. Appearance is similar compared to the CT scan of 11/07. No pleural effusion or pneumothorax is seen. Degenerative changes are present of the shoulders. There is moderate spondylosis. Stable mild scattered patchy airspace disease of bilateral lungs with predominance in the u pper lobes. Dictated and Signed by: Patrick Rodriguez MD Electronically signed: 12/03/2019 9:35 A M Vitals Ranges: Temp: [36.6 C (97.8 F)-37.2 C (98.9 F)] 36.9 C (98.4 F) Pulse: [86-107] 87 Resp: [16-28] 18 BP: (124-184)/(58-82) 158/66 Vitals: Temp: 36.9 C (98.4 F) BP: 158/66 Pulse: 87 Resp: 18 SpO2: 96 % SpO2 96 % on nasal cannula at flow rate 2L/min Sharon Robles MD 12/04/2019 2:32 PM [facility] Landon Cooper, TalonD - 12/04/2019 2:14 PM PST VANCOMYCIN PER PHARMACY PROTOCOL: AMS/Drug Name - vancomycin Patient: Ángela Crowley [id number] Admit: 12/01/2019 10:10 AM RELEVANT ALLERGIES: metronidazole, sulfa antibiotics 89 yrs old female patient admitted on 12/01/2019 for pneumonia and influenza A. 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 . Risk factors for MDR organisms include: recent healthcare contact. HPI: increasing shortness of breath and wheezing. She is normally on 2L of O2 via NC at all times. Now having severe shortness of breath and wheezing and unable to live at home with h er son. Recent admit for similar symptoms and also found to have influenza A. Now symptoms a re worsening. Antimicrobials - Current Antibiotic Dates of Therapy vancomycin 12/01- Antimicrobials - Discontinued Antibiotic Dates of Therapy Augmentin 11/24-11/27 azithromycin 11/18-11/23 oseltamivir 11/18-11/24 cefdinir 11/23 x1 dose levoflox 12-01- Historical Vancomycin dosing (previous & current encounter): none Micro/Cultures/Diagnostics: Microbiology Results (Last 14 Days by Collected Date with Culture/Sensitivity) Procedure Component Value Units Date/Time Culture, MRSA [[id number]] Collected: 12/04/19 1324 Order Status: Sent Lab Status: In process Updated: 12/04/19 1327 Specimen: Tissue from Nares Culture, Respiratory, Lower, Smear [[id number]] Collected: 12/03/19 1527 Order Status: Completed Lab Status: Preliminary result Updated: 12/04/19 0935 Specimen: Body Fluid from Sputum, Expectorated Culture 4+ Staphylococcus aureus Comment: Presumptive identification Identification and susceptibility to follow. Gram Stain Result 3+ White Blood Cells 2+ Gram positive cocci Respiratory pathogen panel, NAAT [[id number]] (Abnormal) Collected: 12/01/19 1730 Order Status: Completed Lab Status: Final result Updated: 12/01/19 210 Specimen: Body Fluid from Nasopharynx Parainfluenza 1 Not Detected Adenovirus Not Detected Human Metapneumovirus Not Detected Rhinovirus/Enterovirus Detected Parainfluenza 3 Not Detected Culture, Blood [[id number]] Collected: 12/01/19 1234 Order Status: Completed Lab Status: Preliminary result Updated: 12/04/19 1241 Specimen: Peripheral Blood Culture No growth: Monitored continually by instrument for 5 days Culture, Blood [[id number]] Collected: 12/01/19 1234 Order Status: Completed Lab Status: Preliminary result Updated: 12/04/19 1241 Specimen: Blood from Line Culture No growth: Monitored continually by instrument for 5 days Gram Stain, reflex Sputum Culture [[id number]] Order Status: No result Lab Status: No result Specimen: Body Fluid from Sputum, Expectorated Culture, Respiratory, Lower, Smear [[id number]] (Susceptibility) Collected: 11/24/19 0014 Order Status: Completed Lab Status: Final result Updated: 11/26/19 1136 Specimen: Body Fluid from Sputum, Expectorated Culture 4+ Pseudomonas putida 4+ Usual Respiratory Kylee Gram Stain Result 4+ White Blood Cells 2+ Epithelial cells 4+ Gram positive cocci 1+ Yeast Susceptibility Pseudomonas putida (1) Antibiotic Interpretation Microscan Method Status Ceftazidime Sensitive <=1 ug/mL Not Specified Final Ceftriaxone Sensitive 8 ug/mL Not Specified Final Ciprofloxacin Sensitive <=0.25 ug/mL Not Specified Final Gentamicin Sensitive <=1 ug/mL Not Specified Final Meropenem Sensitive <=0.25 ug/mL Not Specified Final Tobramycin Sensitive <=1 ug/mL Not Specified Final Trimethoprim + Sulfamethoxazole Sensitive <=20 ug/mL Not Specified Final Relevant cultures from previous admits: Date Source Organisms Sensitivities 11/24/19 resp Pseudomonas putida pansensitive 11/18/19 urine E. coli pansensitive Enterococcus faecalis pansensitive 08/21/19 urine Enterococcus faecium Sens: amp, pen, vanco E.coli pansensitive 07/21/19 resp Pseudomonas aeruginosa pansensitive Admission Wt: 53.1 kg Current Wt: Min/Max Temp past 24 hours:Temp Av.9 C (98.4 F) Min: 36.6 C (97.8 F) Max: 3 7.2 C (98.9 F) Estimated Creatinine Clearance: 56 mL/min (based on SCr of 0.57 mg/dL). Intake/Output Summary (Last 24 hours) at 12/04/2019 1417 Last data filed at 12/04/2019 1416 Gross per 24 hour Intake 650 ml Output 1875 ml Net -1225 ml Temp: [36.6 C (97.8 F)-37.2 C (98.9 F)] 36.9 C (98.4 F) Pulse: [86-107] 87 Resp: [16-28] 18 BP: (124-184)/(58-82) 158/66 Recent Labs Lab 12/04/19 1317 12/04/19 0431 12/03/19 1311 12/03/19 0629 12/02/19 0546 12/01/19 1041 12/01/19 1021 WBC -- 12.8* -- 12.3* 9.7 11.2* -- CREA -- 0.57 -- 0.67 0.62 0.70 -- VANCOTROUGH 12.0* -- -- -- -- -- -- VANCORANDOM -- -- 11.1 -- -- -- -- PROCALCITONI -- -- -- -- -- -- 0.07 Imagin/26: CXR - pulmonary venous congestion; prominent pulmonary arteries indicating pulmonary htn 12/01 CT Chest: MUCOUS PLUGGING WITHIN RIGHT-SIDED AIRWAYS WITH EXTENSIVE CLUSTERED NODULAR ITY INVOLVING PORTIONS OF BOTH LUNGS AND PATCHY CONSOLIDATION/GROUND GLASS OPACITY IN THE UPPER LOBES, CONSISTENT WITH MULTIFOCAL LIKELY AIRWAY CENTERED INFECTI ON. A VERY SMALL RIGHT PLEURAL EFFUSION IS ALSO PRESENT. VASCULAR CALCIFICATION WITH SIMILAR ASCENDING AORTIC DILATION UP TO A DIAMETER OF 4 CM, AND MAIN PULMONARY ARTERY ENLARGEMENT SUGGESTING PULMONARY ARTERIAL HYPERTENSION. Date 12/01 12/02 12/03 Time of Vancomycin draw -- -- 1311 1300 Vancomycin result -- -- 11.1 12.0 LEVEL or TROUGH -- -- LEVEL TROUGH Serum Creatinine 0.70 0.62 0.67 0.57 CrCl (mL/min) 46 52 48 56 Vanco load/bolus - mg -- -- Vanco dose - current -- 1000 mg q24h 1000 mg q24h 1g q24h Vanco dose - new 1000 mg q24hr -- -- 600mg q12h Assessment: Vancomycin Day #4 Other antibiotics: Target Trough: 15-20, pna WBC: 12.3 (worsened); Renal: stable; Temp: afebrile; Culture: 12/01 blood-NGTD; 11/24 res p -pseudomonas putida; VS: wnl Renal function: UOP: 0.6 mL/kg/hr, but patient also has unmeasured UOP Plan: 1. Increase vanco to 600mg q12h due to low trough of 12.0 2. Vancomycin TROUGH ordered for 12/05/19 @ 1400 (draw 60 minutes prior to hanging the 3rd d ose) 3. Serum creatinine DAILY for first 3 [...] Dosing and Monitoring Protocol Electronically signed by: Landon Baca PharmD 12/04/2019 2:17 PM Sharon Hector MD - 12/03/2019 4:04 PM PST [place], [place] [facility]ITAL[facility] PROGRESS NOTE Patient: Ángela Crowley : 1930: Age: 89 y.o. MedRec: [id number] Admission date: 12/01/2019 Hospital day # : 2 Physician author: Sharon Robles MD Today: 12/03/2019 Assessment and Hospital Course Active Hospital Problems Diagnosis Pneumonia Resolved Hospital Problems No resolved problems to display. 89 yo F with history of COPD with 2-3L oxygen requirement and chronic steroid use, TAVR, wh o presented with generalized weakness and productive cough. Plan #Bilateral multifocal pneumonia #Rhinovirus upper respiratory tract infection #Possible COPD exacerbation #Chronic respiratory failure Imaging showed mucus plugging, patchy consolidations. History of COPD with 2-3L oxygen use at home. Chronic prednisone and budesonide use at home. Continue solumedrol, decrease dose s lightly with no wheezing present on exam today. Continue vancomycin and levaquin for now (MR carrier). Sputum culture sent today is pending, worry this may be low yield given that ny álvarez has already received 2d antibiotics here. respiratory therapy evaluation/treat. 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 IV iron had been recommended previously. Transfuse 1u PRBC today, d/w patient's son. Check iron and ferritin levels. #Gastritis history On PPI and famotidine #History TAVR #Chronic congestive heart failure No e/o decompensation currently despite elevated BNP. Continue home medications. Hold aspirin today, consider resumption tomorrow assuming blood counts improve following tr ansfusion. #Urinary incontinence Continue oxybutynin #Mood d/o Continue Lexapro #Sacral decub Continue wound care #Moderate protein calorie malnutrition I attest that this clinical assessment using ASPEN criteria 1 is accurate for this patient and supports that as a medical diagnosis. A specific nutrition treatment plan will be imple mented as outlined in the registered dietitian's plan of care. Nutrition Diagnosis: Moderate protein-calorie malnutrition Type, Moderate: Chronic illness(COPD) Energy Intake: Less than or equal to 75% energy intake compared to estimated needs for grea ter than or equal to 1 month Body Fat: Moderate depletion (NFPE shows wasting orbital tricpes and ribs) Muscle Mass: Moderate depletion (NFPE shows wasting in temples, clavicles, shoulders) FEN: cardiac Ppx: SCD Disposition: pending clinical course Subjective CC: nausea Patient reports she feels her breathing is improved. Having some nausea today. Denies short ness of breath. Denies chest pain. Had a small bowel movement earlier today. Updated patient's son by phone. ROS was performed and was negative except as noted above. Exam Gen: chronically ill appearing, NAD HEENT: MMM, neck supple CV: regular rate and rhythm no m/r/g Pulm: coarse breath sounds at bilateral bases, no wheezing, normal effort Abdominal: soft, nontender, nondistended, normal bowel tones Extremities: well perfused, trace dependent edema Skin: warm, dry, no rashes Neuro: alert, no focal deficits Psych: normal mood and affect Allergies: Allergies Allergen Reactions Metronidazole GI Upset Flagyl [Metronidazole] Nausea And Vomiting and GI Upset Percocet [Oxycodone] Unknown Pregabalin Unknown Lyrica Sulfa Antibiotics Unknown Current Medications: Current Facility-Administered Medications Medication Dose Route Frequency Provider Last Rate Last Dose acetaminophen (TYLENOL) tablet 650 mg 650 mg Oral Q6H PRN Aida Mills MD albuterol-ipratropium 2.5-0.5 mg/3 mL nebulizer solution 3 mL 3 mL Nebulization RT 4x DAILY Aida Mills MD 3 mL at 12/03/19 1418 [START ON 12/04/2019] aspirin chewable tablet 81 mg 81 mg Oral Daily Aida Mills MD atorvaSTATin (LIPITOR) tablet 20 mg 20 mg Oral QAM Aida Mills MD 20 mg at 12/03/19 0958 brimonidine (ALPHAGAN) 0.2% ophthalmic solution 1 drop 1 drop Both Eyes BID Aida hernandez MD 1 drop at 12/03/19 1005 budesonide (PULMICORT) nebulizer solution 0.5 mg 0.5 mg Nebulization RT BID Sharon gastelum MD 0.5 mg at 12/03/19 0731 calcium carbonate (TUMS) chewable tablet 1,000 mg 1,000 mg Oral Q8H PRN Angelika-Hwa Lina, M D carvedilol (COREG) tablet 6.25 mg 6.25 mg Oral BID WC Aida Mills MD 6.25 mg at 0836 dicyclomine (BENTYL) capsule 10 mg 10 mg Oral Daily PRN Aida Mills MD docusate sodium (COLACE) capsule 500 mg 500 mg Oral QAM Aida Mills MD 500 mg at 0958 dorzolamide (TRUSOPT) 2% ophthalmic solution 1 drop 1 drop Both Eyes BID Aida Mills MD 1 drop at 12/03/19 1006 escitalopram (LEXAPRO) tablet 10 mg 10 mg Oral Daily Aida Mills MD 10 mg at 0958 famotidine (PEPCID) tablet 20 mg 20 mg Oral Nightly Autumn Sutherland PharmD ferrous sulfate tablet 325 mg 325 mg Oral Daily with breakfast Aida Mills MD 325 m g at 12/03/19 0836 furosemide (LASIX) tablet 20 mg 20 mg Oral BID (8 and 18) Aida Mills MD 20 mg at 0 12/03/19 0836 guaiFENesin (MUCINEX) ER tablet 600 mg 600 mg Oral BID Aida Mills MD 600 mg at 0958 HYDROcodone-acetaminophen (NORCO) 7.5-325 mg per tablet 1 tablet 1 tablet Oral Q6H PRN Aida Mills MD 1 tablet at 12/03/19 0836 lactobacillus GG-inulin (CULTURELLE) capsule 1 capsule 1 capsule Oral BID Autumn Pérez ma PharmD latanoprost (XALATAN) 0.005% ophthalmic solution 1 drop 1 drop Both Eyes Nightly Gagandeep Mills MD 1 drop at 12/02/192030 levalbuterol (XOPENEX) 1.25 mg/3 mL nebulizer solution 1.25 mg 1.25 mg Nebulization RT Q4H PRN Aida Mills MD 1.25 mg at 12/03/19 0420 [START ON 12/04/2019] levoFLOXacin (LEVAQUIN) tablet 750 mg 750 mg Oral Every Other Day Ina Vann, PharmD methylPREDNISolone sodium succinate (solu-MEDROL) 40 mg/mL injection 60 mg 60 mg Intra venous BID Aida Mills MD metoprolol succinate (TOPROL-XL) ER tablet 25 mg 25 mg Oral Nightly Aida Mills MD 25 mg at 12/02/19 2030 nitroglycerin (NITROSTAT) SL tablet 0.4 mg 0.4 mg Sublingual Q5 Min PRN Jazz Begum ondansetron (ZOFRAN ODT) disintegrating tablet 4 mg 4 mg Oral Q6H PRN Aida Mills MD 4 mg at 12/03/19 1209 oxybutynin (DITROPAN XL) ER tablet 5 mg 5 mg Oral BID Aida Mills MD 5 mg at 0958 pantoprazole (PROTONIX) DR tablet 40 mg 40 mg Oral QAM AC Aida Mills MD 40 mg at 0 12/03/19 0628 polyethylene glycol (MIRALAX) powder 17 g 17 g Oral Daily PRN Aida Mills MD polyvinyl alcohol (LIQUITEARS) 1.4% ophthalmic solution 2 drop 2 drop Both Eyes QAM AC Aida Mills MD 2 drop at 12/03/19 1007 prochlorperazine tablet 10 mg 10 mg Oral Q8H PRN Aida Mills MD senna (SENOKOT) tablet 8.6-17.2 mg 8.6-17.2 mg Oral BID PRN Aida Mills MD vancomycin 1 g in sodium chloride 0.9% 250 mL IVPB 1 g Intravenous Q24H Rosio Elizabeth, PharmD 166.7 mL/hr at 12/03/19 1456 1 g at 12/03/19 1456 vancomycin per pharmacy Other Pharmacy Consult Aida Mills MD Current Infusions: Objective Data Point of care glucose No results for input(s): POCGLU in the last 168 hours. Labs last 24 hours Recent Results (from the past 24 hour(s)) B Type Natriuretic Peptide Collection Time: 12/03/19 6:29 AM Result Value Ref Range BNP 975 (H) <100 pg/mL Basic Metabolic Panel Collection Time: 12/03/19 6:29 AM Result Value Ref Range Na 147 (H) 136 - 145 mmol/L K 3.5 3.4 - 5.1 mmol/L Cl 106 98 - 107 mmol/L CO2 35 (H) 20 - 31 mmol/L Anion Gap 6 3 - 16 mmol/L Glucose 86 60 - 106 mg/dL BUN 22 9 - 23 mg/dL Creatinine 0.67 0.55 - 1.02 mg/dL eGFR if not >60 >=60 mL/min/1.73m2 Calcium 8.8 8.7 - 10.4 mg/dL BUN/Creatinine Ratio 32.8 Magnesium Collection Time: 12/03/19 6:29 AM Result Value Ref Range Magnesium 1.8 1.6 - 2.6 mg/dL CBC no Differential Collection Time: 12/03/19 6:29 AM Result Value Ref Range WBC 12.3 (H) 4.0 - 11.0 K/uL RBC 2.56 (L) 3.70 - 5.20 M/uL Hemoglobin 7.7 (L) 11.5 - 16.0 g/dL Hematocrit 25.1 (L) 34.0 - 47.0 % MCV 98.0 83.0 - 101.0 fL MCH 30.1 28.0 - 35.0 pg MCHC 30.7 (L) 32.0 - 36.0 g/dL RDW-CV 14.8 <15.0 % RDW-SD 53.6 (H) 35.1 - 46.3 fL Platelet Count 201 140 - 440 K/uL MPV 10.3 6.5 - 12.4 fL % nRBC 0 0 - 2 per 100 WBCs Absolute nRBC 0.00 0.00 - 0.01 K/uL Extra Green Top Tube Collection Time: 12/03/19 12:07 PM Result Value Ref Range Extra Green Top Tube Done Vancomycin Level Collection Time: 12/03/19 1:11 PM Result Value Ref Range Date of Last Dose Time of Last Dose Vancomycin Random 11.1 5.0 - 20.0 ug/mL Micro results (more choices using dot micro) Microbiology Results (72 hrs) Procedure Component Value Units Date/Time Culture, Respiratory, Lower, Smear [[id number]] Collected: 12/03/191526 Order Status: Sent Lab Status: In process Updated: 12/03/191526 Specimen: Body Fluid from Sputum, Expectorated Respiratory pathogen panel, NAAT [[id number]] (Abnormal) Collected: 12/01/19 1730 Order Status: Completed Lab Status: Final result Updated: 12/01/192102 Specimen: Body Fluid from Nasopharynx Parainfluenza 1 Not Detected Adenovirus Not Detected Human Metapneumovirus Not Detected Rhinovirus/Enterovirus Detected Parainfluenza 3 Not Detected Culture, Blood [[id number]] Collected: 12/01/191233 Order Status: Completed Lab Status: Preliminary result Updated: 12/02/1943 Specimen: Peripheral Blood Culture No growth: Monitored continually by instrument for 5 days Culture, Blood [[id number]] Collected: 12/01/19 123 Order Status: Completed Lab Status: Preliminary result Updated: 12/02/1943 Specimen: Blood from Line Culture No growth: Monitored continually by instrument for 5 days Radiology results (more choices using dot risresults) Xr Chest Ap Portable Result Date: 12/03/2019 EXAM: XR CHEST AP PORTABLE dated 12/03/2019 1:08 PM HISTORY: picc placement Comparison: 11/27 TECHNIQUE: A single portable view of the chest. FINDINGS: Interval placement of a righ t approach PICC line catheter. The tip is in the distal superior vena cava. This could be advanced x 1.5 cm and secured. No pneumothorax. The exam is otherwise unchanged. Right approach PICC line catheter. No radiographic evidence for a postprocedural complicat ion. Dictated and Signed by: Edwin Jarrell MD Electronically signed: 12/03/2019 1:17 PM Xr Chest 2 Vws Result Date: 12/03/2019 XR CHEST 2 VIEWS 12/03/2019 9:08 AM HISTORY: interval change mucous plug R > L CAP. COMPARIS ON: Multiple priors. Findings: Heart size is at the upper limits of normal. There is atheros clerosis of the aorta. A stent is noted over the lower aorta. Central pulmonary vasculature is normal. Again visualized are mild scattered patchy airspace disease of the bilateral lung s with predominance in the upper lobes. Appearance is similar compared to the CT scan of 11/07. No pleural effusion or pneumothorax is seen. Degenerative changes are present of the shoulders. There is moderate spondylosis. Stable mild scattered patchy airspace disease of bilateral lungs with predominance in the u pper lobes. Dictated and Signed by: Patrick Rodriguez MD Electronically signed: 12/03/2019 9:35 A M Vitals Ranges: Temp: [36.4 C (97.5 F)-37.8 C (100 F)] 36.9 C (98.4 F) Pulse: [86-99] 86 Resp: [18-24] 22 BP: (126-160)/(63-74) 130/63 Vitals: Temp: 36.9 C (98.4 F) BP: 130/63 Pulse: 86 Resp: 22 SpO2: 98 % SpO2 98 % on nasal cannula at flow rate 2L/min Sharon Robles MD 12/03/2019 4:04 PM [facility] Rosio Reece RN - 3:52 PM PSTFollowing Infusion Nurses Society standards of care; a BARD 5fr double- lumen PICC inserted x 2stick, using Ultrasound/ modified Seldinger technique. PICC advanced to caj and confirmed by chest xray. Ok to use. All lumens draw bright red blood briskly and flush easily with normal saline. SBAR report to FUNMILAYO Franks who continues care. Electronically signed by: Rosio Macias RN 12/03/2019 3:52 PM Autumn Estevez, Pharm D - 12/03/2019 1:49 PM PST VANCOMYCIN PER PHARMACY PROTOCOL: AMS/Drug Name - vancomycin Patient: Ángela Crowley [id number] Admit: 12/01/2019 10:10 AM RELEVANT ALLERGIES: metronidazole, sulfa antibiotics 89 yrs old female patient admitted on 12/01/2019 for pneumonia and influenza A. 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 . Risk factors for MDR organisms include: recent healthcare contact. HPI: increasing shortness of breath and wheezing. She is normally on 2L of O2 via NC at all times. Now having severe shortness of breath and wheezing and unable to live at home with h er son. Recent admit for similar symptoms and also found to have influenza A. Now symptoms a re worsening. Antimicrobials - Current Antibiotic Dates of Therapy vancomycin 12/01- levofloxacin 12/01- Antimicrobials - Discontinued Antibiotic Dates of Therapy Augmentin 11/24-11/27 azithromycin 11/18-11/23 oseltamivir 11/18-11/24 cefdinir 11/23 x1 dose Historical Vancomycin dosing (previous & current encounter): none Micro/Cultures/Diagnostics: Microbiology Results (Last 14 Days by Collected Date with Culture/Sensitivity) Procedure Component Value Units Date/Time Respiratory pathogen panel, NAAT [[id number]] (Abnormal) Collected: 12/01/19 1730 Order Status: Completed Lab Status: Final result Updated: 12/01/192102 Specimen: Body Fluid from Nasopharynx Parainfluenza 1 Not Detected Adenovirus Not Detected Human Metapneumovirus Not Detected Rhinovirus/Enterovirus Detected Parainfluenza 3 Not Detected Culture, Respiratory, Lower, Smear [[id number]] Order Status: Sent Lab Status: No result Specimen: Body Fluid from Sputum, Expectorated Culture, MRSA [[id number]] Order Status: Sent Lab Status: No result Specimen: Tissue from Nares Culture, Blood [[id number]] Collected: 12/01/19 1234 Order Status: Completed Lab Status: Preliminary result Updated: 12/02/1943 Specimen: Peripheral Blood Culture No growth: Monitored continually by instrument for 5 days Culture, Blood [[id number]] Collected: 12/01/19 1234 Order Status: Completed Lab Status: Preliminary result Updated: 12/02/19 004 Specimen: Blood from Line Culture No growth: Monitored continually by instrument for 5 days Gram Stain, reflex Sputum Culture [[id number]] Order Status: No result Lab Status: No result Specimen: Body Fluid from Sputum, Expectorated Culture, Respiratory, Lower, Smear [[id number]] (Susceptibility) Collected: 11/24/19 0014 Order Status: Completed Lab Status: Final result Updated: 11/26/19 1136 Specimen: Body Fluid from Sputum, Expectorated Culture 4+ Pseudomonas putida 4+ Usual Respiratory Kylee Gram Stain Result 4+ White Blood Cells 2+ Epithelial cells 4+ Gram positive cocci 1+ Yeast Susceptibility Pseudomonas putida (1) Antibiotic Interpretation Microscan Method Status Ceftazidime Sensitive <=1 ug/mL Not Specified Final Ceftriaxone Sensitive 8 ug/mL Not Specified Final Ciprofloxacin Sensitive <=0.25 ug/mL Not Specified Final Gentamicin Sensitive <=1 ug/mL Not Specified Final Meropenem Sensitive <=0.25 ug/mL Not Specified Final Tobramycin Sensitive <=1 ug/mL Not Specified Final Trimethoprim + Sulfamethoxazole Sensitive <=20 ug/mL Not Specified Final Relevant cultures from previous admits: Date Source Organisms Sensitivities 11/24/19 resp Pseudomonas putida pansensitive 11/18/19 urine E. coli pansensitive Enterococcus faecalis pansensitive 08/21/19 urine Enterococcus faecium Sens: amp, pen, vanco E.coli pansensitive 07/21/19 resp Pseudomonas aeruginosa pansensitive Admission Wt: 53.1 kg Current Wt: Min/Max Temp past 24 hours:Temp Av.9 C (98.5 F) Min: 36.4 C (97.5 F) Max: 3 7.8 C (100 F) Estimated Creatinine Clearance: 48 mL/min (based on SCr of 0.67 mg/dL). Intake/Output Summary (Last 24 hours) at 12/03/2019 1349 Last data filed at 12/03/2019 1051 Gross per 24 hour Intake 450 ml Output 825 ml Net -375 ml Temp: [36.4 C (97.5 F)-37.8 C (100 F)] 37.8 C (100 F) Pulse: [88-100] 93 Resp: [18-20] 18 BP: (126-160)/(68-74) 142/68 Recent Labs Lab 12/03/19 1311 12/03/19 0629 12/02/19 0546 12/01/19 1041 12/01/19 1021 WBC -- 12.3* 9.7 11.2* -- CREA -- 0.67 0.62 0.70 -- VANCORANDOM 11.1 -- -- -- -- PROCALCITONI -- -- -- -- 0.07 Imagin/26: CXR - pulmonary venous congestion; prominent pulmonary arteries indicating pulmonary htn 12/01 CT Chest: MUCOUS PLUGGING WITHIN RIGHT-SIDED AIRWAYS WITH EXTENSIVE CLUSTERED NODULAR ITY INVOLVING PORTIONS OF BOTH LUNGS AND PATCHY CONSOLIDATION/GROUND GLASS OPACITY IN THE UPPER LOBES, CONSISTENT WITH MULTIFOCAL LIKELY AIRWAY CENTERED INFECTI ON. A VERY SMALL RIGHT PLEURAL EFFUSION IS ALSO PRESENT. VASCULAR CALCIFICATION WITH SIMILAR ASCENDING AORTIC DILATION UP TO A DIAMETER OF 4 CM, AND MAIN PULMONARY ARTERY ENLARGEMENT SUGGESTING PULMONARY ARTERIAL HYPERTENSION. Date 12/01 12/02 12/03 12/03 Time of Vancomycin draw -- -- 1311 DUE @1300 Vancomycin result -- -- 11.1 LEVEL or TROUGH -- -- LEVEL TROUGH Serum Creatinine 0.70 0.62 0.67 CrCl (mL/min) 46 52 48 Vanco load/bolus - mg -- -- Vanco dose - current -- 1000 mg q24h 1000 mg q24h Vanco dose - new 1000 mg q24hr -- -- Assessment: Vancomycin Day #3 Other antibiotics: levofloxacin Target Trough: 15-20, pna WBC: 12.3 (worsened); Renal: stable; Temp: afebrile; Culture: 12/01 blood-NGTD; 11/24 res p -pseudomonas putida; VS: wnl Renal function: UOP: 0.6 mL/kg/hr, but patient also has unmeasured UOP Second vancomycin dose was given approximately 4 hours late on 12/02 Level after two doses is slightly sub-therapeutic, but have not yet reached steady-state dosing though is also drawn approx 3 hours early to be a "true" level Plan: 1. Continue vancomycin 1000 mg IVPB q24h 2. Vancomycin TROUGH ordered for 12/04/19 @ 1300 (draw 60 minutes prior to hanging the 3rd d ose) 3. Serum creatinine DAILY for first 3 [...] Dosing and Monitoring Protocol Electronically signed by: Autumn Sutherland PharmD 12/03/2019 1:49 PM Autumn Estevez PharmD - 12/03/2019 8:44 AM PST . RENAL DOSE ADJUSTMENT PER PHARMACY PROTOCOL: Subjective/Objective: Ángela Crowley is a 89 y.o. year old female admitted on 12/01/2019 10:10 AM and is rece iving LEVOFLOXACIN and FAMOTIDINE BP 142/68 | Pulse 93 | Temp 37.8 C (100 F) (Oral) | Resp 18 | SpO2 96% Intake/Output Summary (Last 24 hours) at 12/03/2019 0844 Last data filed at 12/03/2019 0306 Gross per 24 hour Intake 550 ml Output 850 ml Net -300 ml Recent Labs Lab 12/03/19 0629 12/02/19 0546 12/01/19 1041 CREA 0.67 0.62 0.70 Estimated Creatinine Clearance: 48 mL/min (based on SCr of 0.67 mg/dL). Levofloxacin: Date Day of therapy Creatinine CrCl (mL/min) Dose-current Dose-new 12/01/19 1 0.7 46 750 mg q24hr 750 mg q48hr 12/02 2 0.62 52 750 mg q48hr 750 mg q24hr 12/03 3 0.67 48 750 mg q24hr 750 mg q48hr Famotidine: Date Day of therapy Creatinine CrCl (mL/min) Dose-current Dose-new 12/01/19 1 0.7 46 40 mg q24h -- 12/02 2 0.62 52 40 mg q24h -- 12/03 3 0.67 48 40 mg q24h 20 mg q24hr Assessment/Plan: 1. For creatinine clearance <50 mL/min, decrease dose of LEVOFLOXACIN as above. 2. For creatinine clearance 30-60 mL/min, decrease dose of FAMOTIDINE as above. 3. Pharmacy will continue to follow and adjust dose as appropriate to clinical condition an d creatinine clearance changes RENAL DOSE ADJUSTMENT PROTOCOL Electronically signed by: Ina Vann PharmD 12/03/2019 8:44 AM Electronically signed by: Autumn Sutherland PharmD 12/03/2019 12:27 PM ina, MD Aida - 12/02/2019 1:16 PM PST [facility] HOSPITALIST PROGRESS NOTE Patient: Ángela Crowley : 1930: Age: 89 y.o. MedRec: [id number] Admission date: 12/01/2019 Hospital day # : 1 Physician author: Aida Mills MD Today: 12/02/2019 Reason for hospitalization CHIEF COMPLAINT: Progressive weakness/productive cough HISTORY OF PRESENT ILLNESS: Ángela Crowley is a 89 y.o. female with a history of 2-3 L O2 and steroid dependent CO PD /chronic pain/TAVR, presented on 12/01/2019, Evaluated by PCP yesterday, and son brought patient in today to the ER for hospitalization.with progressive generalized weakness for sev eral days, worse the last 2 days, unable to play w/ grandkids, associated with productive g reen cough, and severe shortness of breath dyspnea last night. No current albuterol MDI us e, just DuoNeb/budesonide 3 times daily, PEP use 2-3 per day. She was discharged 7 days ago after she was treated for influenza A w/ tamiflu. Chronic anemia. Dr. Grimes recommended no more EGDs given age/comorbities winter 2018. PP I and famotidine. ED course: HR 80-99, T 37.1, 93% on 2 L NC, noted to be wheezing initially, patient continu es to ask to go home/food/pain control, difficult to redirect while I am speaking to the son , but comfortable after sandwich/juice/meds. -Studies: PCO2 47, PO2 60, pH 7.4, no prior ABGs, hemoglobin 7.8 likely diluted after discu ssion with the laboratory, hemoglobin 9 -CT right > left multifocal pneumonia -Treatment: duoneb norco levaquin vanco solumedrol zofran Relevant Chart Review 11/18 hospitalized for influenza a COPD exacerbation, complicated by delirium/agit ation resolved when home Lexapro was resumed by day 4, med rec was performed it appears on d ay 3 per son. 7 days of Augmentin on discharge. She had been treated with 7 days Tamiflu an d azithromycin. S/P DIURESIS. 08/2019 herb - Normal esophagus. - Erythematous mucosa in the gastric body and antrum. - 3 cm hiatal hernia. - A single mucosal papule (nodule) found in the stomach. - Normal duodenal bulb and second portion of the duodenum. - No specimens collected. - There is no evidence of upper GI bleeding. . - Due to age and comorbidities, advise against further endoscopic evaluations. She has chronic iron deficiency anemia. She has a high likelihood of small bowel AVMs given her history of aortic stenosis. recommend IV iron therapy. Likelylong term basis, to match ongoing chronic bleeding. 06/2019 - colonoscopy - Decreased sphincter tone found on digital rectal exam. - Severe diverticulosis in the distal sigmoid colon. narrowing of the colon in association with the diverticular opening. diverticular spasm. imp acted diverticulum. no evidence of diverticular bleeding. 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 - Stool in the mid sigmoid colon. Assessment and Plan Active Hospital Problems Diagnosis Pneumonia Resolved Hospital Problems No resolved problems to display. Hospital Day: 2 Right greater than left multifocal CAP,recently treated influenza A, rhinovirus present --MUCOUS PLUGGING RIGHT AIRWAYS WITH EXTENSIVE CLUSTERED NODULARITY INVOLVING PORTIONS OF BOTH LUNGS AND PATCHY CONSOLIDATION/GROUND GLASS OPACITY IN THE UPPER LOBES, CONSISTENT WITH MULTIFOCAL -son indicates prior DUCT CLEANER evaluation was unremarkable, I am unable to find this note, no dys phagia overtly at home per son, gastritis hx -MRSA carrier, TB history, -COPD, stable 2-3L NC dependent, prednisone and budesonide depen dent, pulmonary hypertension --solumedrol/duonebs (monitor HR)/Mucinex/poor PEP use/percussion vest trial --12/01-current - vancomycin/Levaquin -pending sputum/blood culture Tavr history Stable CHF, rheumatic fever history, CAD, angina BNP 719 (range 232-480) recheck bnp in tomorrow PRN home nitro, COREG AND METOPROLOL(Per pharmacy this is long standing), Continue lasix Resume ASA Chronic anemia Small bowel AVMs suspected 08/25/2019, no more invasive evaluations recommended per GI give n age/comorbidities, IV iron had been recommended. I reviewed this with son today. erroneous initial ER Hg Hold aspirin for 1 day-tomorrow since Hgb 8.2 and diffuse ecchymosis today, discussed w/ so n re: TAVR, I discussed risks of bleeding and likely minimal effect of missing asa for 1 day . I offered to continue asa and expect bleeding and transfusion. Patient agrees to holding A SA for now. 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 Son was updated on phone. He appeared to understand management and voiced agreement Subjective by date She feels better, wheeze coarse breath sounds improved air flow, poor PEP use / ate 90% lauren ls / + BM / + UOP / tolerated PT / poor vasculature /diffuse ecchymosis Treatment log Hold ASA 12/03/2019 florastor vanco levaquin Dc budesonide while on solumedrol Decrease solumedrol Percussion vest PICC Exam 1-2L O2 NC General NAD A and O spry hearing deficit hearing aide Cardiac S1 S2 RRR Lung improved lung volumes, coarse crackles Abdominal soft nt nd + BS Neuro no dysarthria, able to turn in bed w/ one person assist Extremities no beck edema / abdominal wall, arms/ shins w/ ecchymosis Sacral decub superficial dime sized, foam dressing c/d/i Vitals Ranges: Temp: [35.3 C (95.5 F)-37.5 C (99.5 F)] 37.5 C (99.5 F) Pulse: [83-104] 96 Resp: [11-22] 20 BP: (103-166)/(45-80) 128/78 Vitals: Temp: 37.5 C (99.5 F) BP: 128/78 Pulse: 96 Resp: 20 SpO2: 98 % SpO2 98 % on nasal cannula at flow rate 2L/min Objective Data Point of care glucose No results for input(s): POCGLU in the last 168 hours. Labs last 24 hours Recent Results (from the past 24 hour(s)) Respiratory pathogen panel, NAAT Collection Time: 12/01/19 5:30 PM Result Value Ref Range Parainfluenza 1 Not Detected Not Detected Adenovirus Not Detected Not Detected Human Metapneumovirus Not Detected Not Detected Rhinovirus/Enterovirus Detected (A) Not Detected Parainfluenza 3 Not Detected Not Detected Hemoglobin Collection Time: 12/01/19 6:22 PM Result Value Ref Range Hemoglobin 8.6 (L) 11.5 - 16.0 g/dL Basic Metabolic Panel Collection Time: 12/02/19 5:46 AM Result Value Ref Range Na 142 136 - 145 mmol/L K 3.6 3.4 - 5.1 mmol/L Cl 103 98 - 107 mmol/L CO2 34 (H) 20 - 31 mmol/L Anion Gap 5 3 - 16 mmol/L Glucose 135 (H) 60 - 106 mg/dL BUN 25 (H) 9 - 23 mg/dL Creatinine 0.62 0.55 - 1.02 mg/dL eGFR if not >60 >=60 mL/min/1.73m2 Calcium 8.4 (L) 8.7 - 10.4 mg/dL BUN/Creatinine Ratio 40.3 CBC no Differential Collection Time: 12/02/19 5:46 AM Result Value Ref Range WBC 9.7 4.0 - 11.0 K/uL RBC 2.70 (L) 3.70 - 5.20 M/uL Hemoglobin 8.2 (L) 11.5 - 16.0 g/dL Hematocrit 27.1 (L) 34.0 - 47.0 % MCV 100.4 83.0 - 101.0 fL MCH 30.4 28.0 - 35.0 pg MCHC 30.3 (L) 32.0 - 36.0 g/dL RDW-CV 14.9 <15.0 % RDW-SD 54.4 (H) 35.1 - 46.3 fL Platelet Count 195 140 - 440 K/uL MPV 10.1 6.5 - 12.4 fL % nRBC 0 0 - 2 per 100 WBCs Absolute nRBC 0.00 0.00 - 0.01 K/uL Magnesium Collection Time: 12/02/19 5:46 AM Result Value Ref Range Magnesium 1.9 1.6 - 2.6 mg/dL Micro results Microbiology Results (72 hrs) Procedure Component Value Units Date/Time Respiratory pathogen panel, NAAT [[id number]] (Abnormal) Collected: 12/01/19 1730 Order Status: Completed Lab Status: Final result Updated: 12/01/192102 Specimen: Body Fluid from Nasopharynx Parainfluenza 1 Not Detected Adenovirus Not Detected Human Metapneumovirus Not Detected Rhinovirus/Enterovirus Detected Parainfluenza 3 Not Detected Culture, Blood [[id number]] Collected: 12/01/191233 Order Status: Completed Lab Status: Preliminary result Updated: 12/02/1943 Specimen: Peripheral Blood Culture No growth: Monitored continually by instrument for 5 days Culture, Blood [[id number]] Collected: 12/01/191233 Order Status: Completed Lab Status: Preliminary result Updated: 12/02/1943 Specimen: Blood from Line Culture No growth: Monitored continually by instrument for [address] Chest Wo Contrast Result Date: 12/01/[address] 12/01/2019 10:53 AM CLINICAL HISTORY: Shortness of breath COMPARISO N: Preceding radiography and more remote imaging TECHNIQUE: Axial unenhanced images are per formed through the chest, along with multiplanar reformations. FINDINGS: Extensive calcifi ed plaque is again evident in the aorta, proximal great vessels and coronary arteries. An a ortic valve prosthesis is present. There is similar dilation of the ascending aorta to a helga meter of 4 cm. There is similar dilation of the main pulmonary artery up to a diameter of 3 .7 cm. No pathologic lymph node enlargement is evident. There is no pericardial effusion o r pneumothorax. A very small dependent low attenuation right pleural effusion is now present . Segmental mucous plugging is suggested within the bronchus intermedius and right middle an d lower lobe airways. Extensive tiny clustered nodules are present in the right greater amy n left lower lobes, with additional involvement of the middle lobe and lingula. Small, ill- defined clustered nodular opacities are also present in the right upper lobe and posterior l eft upper lobe, with some patchy consolidation/ground glass opacity also apparent in the ant erior left upper lobe and more superior right upper lobe. There are degenerative changes of the imaged shoulders and sternoclavicular joints. Osteopenia is suggested. A healing appea ring right posterior eighth rib fracture is noted. There is S-shaped thoracic curvature and extensive vertebral spondylosis. The gallbladder is surgically absent and prominent biliar y ductal dilation is again demonstrated. Imaged upper abdomen is otherwise unremarkable. 1. MUCOUS PLUGGING WITHIN RIGHT-SIDED AIRWAYS WITH EXTENSIVE CLUSTERED NODULARITY INVOLVIN G PORTIONS OF BOTH LUNGS AND PATCHY CONSOLIDATION/GROUND GLASS OPACITY IN THE UPPER LOBES, C ONSISTENT WITH MULTIFOCAL LIKELY AIRWAY CENTERED INFECTION. A VERY SMALL RIGHT PLEURAL EFFU DEANDRE IS ALSO PRESENT. 2. VASCULAR CALCIFICATION WITH SIMILAR ASCENDING AORTIC DILATION UP T O A DIAMETER OF 4 CM, AND MAIN PULMONARY ARTERY ENLARGEMENT SUGGESTING PULMONARY ARTERIAL HY PERTENSION. 3. CHRONIC BILIARY DUCTAL DILATION. Images were provided for interpretation on December 01, 2019 at 1100 hours. Results were finalized at 1120 hours. Dictated and Signed b y: Sivakumar Ramon MD Electronically signed: 12/01/2019 11:21 AM Xr Chest Ap Portable Result Date: 12/01/2019 EXAM: XR CHEST AP PORTABLE dated 12/01/2019 10:32 AM HISTORY: SOB Comparison: 11/23/2019 and 09/06/2019 TECHNIQUE: A single portable view of the chest. FINDINGS: The lungs are symmetrica lly aerated. Prominence of the pulmonary vasculature. No consolidation. There are no large pleural effusions. There is no pneumothorax. The cardiac and mediastinal contours are sta ble. Enlarged central pulmonary arteries. Findings consistent with aortic valvular repair. No acute osseous abnormalities. Findings suggest pulmonary venous congestion. Prominent pulmonary arteries can indicate pul monary hypertension. Dictated and Signed by: Edwin Jarrell MD Electronically signed: 11/07 10:55 AM Current Medications: Current Facility-Administered Medications Medication Dose Route Frequency Provider Last Rate Last Dose acetaminophen (TYLENOL) tablet 650 mg 650 mg Oral Q6H PRN Aida Mills MD albuterol-ipratropium 2.5-0.5 mg/3 mL nebulizer solution 3 mL 3 mL Nebulization RT 4x DAILY Aida Mills MD 3 mL at 12/02/19 1147 aspirin chewable tablet 81 mg 81 mg Oral Daily Aida Mills MD 81 mg at 12/02/19 090 8 atorvaSTATin (LIPITOR) tablet 20 mg 20 mg Oral QAM Aida Mills MD 20 mg at 12/02/19 0907 brimonidine (ALPHAGAN) 0.2% ophthalmic solution 1 drop 1 drop Both Eyes BID Aida hernandez MD 1 drop at 12/02/19 0914 budesonide (PULMICORT) nebulizer solution 0.5 mg 0.5 mg Nebulization RT BID Aida hernandez MD 0.5 mg at 12/02/19 0752 calcium carbonate (TUMS) chewable tablet 1,000 mg 1,000 mg Oral Q8H PRN Jazz Begum D carvedilol (COREG) tablet 6.25 mg 6.25 mg Oral BID WC Aida Mills MD 6.25 mg at 0908 dicyclomine (BENTYL) capsule 10 mg 10 mg Oral Daily PRN Aida Mills MD docusate sodium (COLACE) capsule 500 mg 500 mg Oral QAM Aida Mills MD 500 mg at 0907 dorzolamide (TRUSOPT) 2% ophthalmic solution 1 drop 1 drop Both Eyes BID Aida Mills MD 1 drop at 12/02/19 0914 escitalopram (LEXAPRO) tablet 10 mg 10 mg Oral Daily Aida Mills MD 10 mg at 0907 famotidine (PEPCID) tablet 40 mg 40 mg Oral Nightly Aida Mills MD 40 mg at 0 6 ferrous sulfate tablet 325 mg 325 mg Oral Daily with breakfast Aida Mills MD 325 m g at 12/02/19 0907 furosemide (LASIX) tablet 20 mg 20 mg Oral BID (8 and 18) Aida Mills MD 20 mg at 0 12/02/19 0907 guaiFENesin (MUCINEX) ER tablet 600 mg 600 mg Oral BID Aida Mills MD 600 mg at 0907 HYDROcodone-acetaminophen (NORCO) 7.5-325 mg per tablet 1 tablet 1 tablet Oral Q6H PRN Aida Mills MD 1 tablet at 12/02/19 0908 latanoprost (XALATAN) 0.005% ophthalmic solution 1 drop 1 drop Both Eyes Nightly Gagandeep Mills MD 1 drop at 12/01/192127 levalbuterol (XOPENEX) 1.25 mg/3 mL nebulizer solution 1.25 mg 1.25 mg Nebulization RT Q4H PRN Aida Mills MD levoFLOXacin in dextrose (LEVAQUIN) IVPB 750 mg 750 mg Intravenous Daily Ina Gandhi on, PharmD methylPREDNISolone sodium succinate (solu-MEDROL) 40 mg/mL injection 60 mg 60 mg Intra venous Q8H Aida Mills MD 60 mg at 12/02/19 09 metoprolol succinate (TOPROL-XL) ER tablet 25 mg 25 mg Oral Nightly Aida Mills MD 25 mg at 12/01/19 211 nitroglycerin (NITROSTAT) SL tablet 0.4 mg 0.4 mg Sublingual Q5 Min PRN Jazz Begum ondansetron (ZOFRAN ODT) disintegrating tablet 4 mg 4 mg Oral Q6H PRN Aida Mills MD oxybutynin (DITROPAN XL) ER tablet 5 mg 5 mg Oral BID Aida Mills MD 5 mg at 0907 pantoprazole (PROTONIX) DR tablet 40 mg 40 mg Oral QAM AC Aida Mills MD 40 mg at 0 12/02/19 0651 polyethylene glycol (MIRALAX) powder 17 g 17 g Oral Daily PRN Aida Mills MD polyvinyl alcohol (LIQUITEARS) 1.4% ophthalmic solution 2 drop 2 drop Both Eyes QAM CESAR Mills MD 2 drop at 12/02/19 0652 prochlorperazine tablet 10 mg 10 mg Oral Q8H PRN Aida Mills MD saccharomyces boulardii (FLORASTOR) capsule 250 mg 250 mg Oral BID Dianelys Zelaya mD 250 mg at 12/02/19 0908 senna (SENOKOT) tablet 8.6-17.2 mg 8.6-17.2 mg Oral BID PRN Aida Mills MD vancomycin 1 g in sodium chloride 0.9% 250 mL IVPB 1 g Intravenous Q24H Rosio Elizabeth PharmD 166.7 mL/hr at 12/01/19 1418 1 g at 12/01/19 1418 vancomycin per pharmacy Other Pharmacy Consult Aida Mills MD Current Infusions: Aida Mills MD 12/02/2019 1:16 PM [facility] Autumn Estevez, PharmD - 12/02/2019 12:06 PM PST VANCOMYCIN PER PHARMACY PROTOCOL: AMS/Drug Name - vancomycin Patient: Ángela Crowley [id number] Admit: 12/01/2019 10:10 AM RELEVANT ALLERGIES: metronidazole, sulfa antibiotics 89 yrs old female patient admitted on 12/01/2019 for pneumonia and influenza A. 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 . Risk factors for MDR organisms include: recent healthcare contact. HPI: increasing shortness of breath and wheezing. She is normally on 2L of O2 via NC at all times. Now having severe shortness of breath and wheezing and unable to live at home with h er son. Recent admit for similar symptoms and also found to have influenza A. Now symptoms a re worsening. Antimicrobials - Current Antibiotic Dates of Therapy vancomycin 12/01- levofloxacin 12/01- Antimicrobials - Discontinued Antibiotic Dates of Therapy Augmentin 11/24-11/27 azithromycin 11/18-11/23 oseltamivir 11/18-11/24 cefdinir 11/23 x1 dose Historical Vancomycin dosing (previous & current encounter): none Micro/Cultures/Diagnostics: Microbiology Results (Last 14 Days by Collected Date with Culture/Sensitivity) Procedure Component Value Units Date/Time Respiratory pathogen panel, NAAT [[id number]] (Abnormal) Collected: 12/01/19 1730 Order Status: Completed Lab Status: Final result Updated: 12/01/192102 Specimen: Body Fluid from Nasopharynx Parainfluenza 1 Not Detected Adenovirus Not Detected Human Metapneumovirus Not Detected Rhinovirus/Enterovirus Detected Parainfluenza 3 Not Detected Culture, Respiratory, Lower, Smear [[id number]] Order Status: Sent Lab Status: No result Specimen: Body Fluid from Sputum, Expectorated Culture, MRSA [[id number]] Order Status: Sent Lab Status: No result Specimen: Tissue from Nares Culture, Blood [[id number]] Collected: 12/01/19 1234 Order Status: Completed Lab Status: Preliminary result Updated: 12/02/1943 Specimen: Peripheral Blood Culture No growth: Monitored continually by instrument for 5 days Culture, Blood [[id number]] Collected: 12/01/19 1234 Order Status: Completed Lab Status: Preliminary result Updated: 12/02/1943 Specimen: Blood from Line Culture No growth: Monitored continually by instrument for 5 days Gram Stain, reflex Sputum Culture [[id number]] Order Status: No result Lab Status: No result Specimen: Body Fluid from Sputum, Expectorated Culture, Respiratory, Lower, Smear [[id number]] (Susceptibility) Collected: 11/24/19 0014 Order Status: Completed Lab Status: Final result Updated: 11/26/19 1136 Specimen: Body Fluid from Sputum, Expectorated Culture 4+ Pseudomonas putida 4+ Usual Respiratory Kylee Gram Stain Result 4+ White Blood Cells 2+ Epithelial cells 4+ Gram positive cocci 1+ Yeast Susceptibility Pseudomonas putida (1) Antibiotic Interpretation Microscan Method Status Ceftazidime Sensitive <=1 ug/mL Not Specified Final Ceftriaxone Sensitive 8 ug/mL Not Specified Final Ciprofloxacin Sensitive <=0.25 ug/mL Not Specified Final Gentamicin Sensitive <=1 ug/mL Not Specified Final Meropenem Sensitive <=0.25 ug/mL Not Specified Final Tobramycin Sensitive <=1 ug/mL Not Specified Final Trimethoprim + Sulfamethoxazole Sensitive <=20 ug/mL Not Specified Final Relevant cultures from previous admits: Date Source Organisms Sensitivities 11/24/19 resp Pseudomonas putida pansensitive 11/18/19 urine E. coli pansensitive Enterococcus faecalis pansensitive 08/21/19 urine Enterococcus faecium Sens: amp, pen, vanco E.coli pansensitive 07/21/19 resp Pseudomonas aeruginosa pansensitive Admission Wt: 53.1 kg Current Wt: Min/Max Temp past 24 hours:Temp Av.6 C (97.8 F) Min: 35.3 C (95.5 F) Max: 3 7.5 C (99.5 F) Estimated Creatinine Clearance: 52 mL/min (based on SCr of 0.62 mg/dL). Intake/Output Summary (Last 24 hours) at 12/02/2019 1208 Last data filed at 12/02/2019 1134 Gross per 24 hour Intake 300 ml Output 1050 ml Net -750 ml Temp: [35.3 C (95.5 F)-37.5 C (99.5 F)] 37.5 C (99.5 F) Pulse: [83-104] 93 Resp: [11-22] 16 BP: (103-166)/(45-80) 132/68 Recent Labs Lab 12/02/19 0546 12/01/19 1041 12/01/19 1021 WBC 9.7 11.2* -- CREA 0.62 0.70 -- PROCALCITONI -- -- 0.07 Imagin/26: CXR - pulmonary venous congestion; prominent pulmonary arteries indicating pulmonary htn 12/01 CT Chest: MUCOUS PLUGGING WITHIN RIGHT-SIDED AIRWAYS WITH EXTENSIVE CLUSTERED NODULAR ITY INVOLVING PORTIONS OF BOTH LUNGS AND PATCHY CONSOLIDATION/GROUND GLASS OPACITY IN THE UPPER LOBES, CONSISTENT WITH MULTIFOCAL LIKELY AIRWAY CENTERED INFECTI ON. A VERY SMALL RIGHT PLEURAL EFFUSION IS ALSO PRESENT. VASCULAR CALCIFICATION WITH SIMILAR ASCENDING AORTIC DILATION UP TO A DIAMETER OF 4 CM, AND MAIN PULMONARY ARTERY ENLARGEMENT SUGGESTING PULMONARY ARTERIAL HYPERTENSION. Date 12/01 12/02 Time of Vancomycin draw -- -- Vancomycin result -- -- LEVEL or TROUGH -- -- Serum Creatinine 0.70 0.62 CrCl (mL/min) 46 52 Vanco load/bolus - mg -- Vanco dose - current -- 1000 mg q24h Vanco dose - new 1000 mg q24hr -- Assessment: Vancomycin Day # 2 Other antibiotics: levofloxacin Target Trough: 15-20, pna WBC: 9.7 (improved); Renal: stable; Temp: afebrile; Culture: 12/01 blood-NGTD; 11/24 resp -pseudomonas putida; VS: wnl Renal function: UOP: 0.6 mL/kg/hr, but patient also has unmeasured UOP Will draw level due to patient's low BW, age, renal function borderline for q12h dosing Plan: 1. Vancomycin 1000 mg IVPB q24h 2. Vancomycin level ordered for 12/03/19 @ 1300 (draw 60 minutes prior to hanging the 3rd do se) 3. Serum creatinine DAILY for [...] Dosing and Monitoring Protocol Electronically signed by: Autumn Sutherland PharmD 12/02/2019 12:06 PM Ina Perez PharmD - 12/02/2019 11:53 AM PSTFormatting of this note might be different from the shawn diop RENAL DOSE ADJUSTMENT PER PHARMACY PROTOCOL: Subjective/Objective: Ángela Crowley is a 89 y.o. year old female admitted on 12/01/2019 10:10 AM and is rece iving LEVOFLOXACIN BP 132/68 | Pulse 93 | Temp 37.5 C (99.5 F) (Oral) | Resp 16 | SpO2 98% Intake/Output Summary (Last 24 hours) at 12/02/2019 1153 Last data filed at 12/02/2019 1134 Gross per 24 hour Intake 300 ml Output 1050 ml Net -750 ml Recent Labs Lab 12/02/19 0546 12/01/19 1041 CREA 0.62 0.70 Estimated Creatinine Clearance: 52 mL/min (based on SCr of 0.62 mg/dL). Date Day of therapy Creatinine CrCl (mL/min) Dose-current Dose-new 12/01/19 1 0.7 46 750 mg q24hr 750 mg q48hr 12/02 2 0.62 52 750 mg q48hr 750 mg q24hr Assessment/Plan: 1. For creatinine clearance >50 mL/min, increase dose of LEVOFLOXACIN as above. 2. Pharmacy will continue to follow and adjust dose as appropriate to clinical condition an d creatinine clearance changes RENAL DOSE ADJUSTMENT PROTOCOL Electronically signed by: Ina Vann PharmD 12/02/2019 11:53 AM Autumn Estevez, PharmD - 12/02/2019 11:19 AM PSTFormatting of this note might be different from the shawn diop PHARMACY SERVICES: ADMISSION MEDICATION REVIEW Ángela Crowley is a 89 y.o. female admitted on 12/01/2019. Patient is not a reliable historian. Location of Patient when reviewed: MEDICAL FLOOR Patient s prior to admit medication and over the counter (OTC) medications/herbal supplem ents list obtained from: X Verbal interview with son Liam who was ABLE TO RECALL ALL name, strength, and direction s (Liam manages medications) X Patient/family member provided "A CURRENT MEDICATION LIST" (Old AVS) X Doctor's office: [facility] list names: [facility] [employer] insurance reported information Vaccines up to date? Influenza No--son states she has not had this since it was "recalled a few years ago". Pneumococcal Yes Tdap Yes Shingles Yes Noted medications discrepancies or medication-related issues: Dosage/Form/Frequency change: [employer] Medication: Prior to Admission Sig: Correct Dosage/Form: Correct Sig: Patient taking di fferently as: Albuterol-ipratropium 2.5-0.5 mg/ 3 ml marcelino 3 mls by mouth three times daily 3 ml via neb ulization four times daily Patient is mixing this together in the nebulizer with an ampule of budesonide Bacitracin 500 unit/gm ointment 1 application topically two times daily to bedsores on but tocks 1 application topically three times daily to bedsore Patients son states she has [place] d this bedsore since being discharged last time. Calcium carbonate 500 mg tab Chew and swallow two tabs nightly Chew and swallow two tabs by mouth twice daily as needed for heartburn Escitalopram 5 mg tab 10 mg by mouth daily 5 mg by mouth daily 10 mg by mouth once patrice y Patients son states he spoke with Dr. Millan at her appointment and was told he could incr ease the dose due to the patient not getting it "at all during her last admission which caus ed further depression and anxiety". No record of this conversation in PCP progress notes.. Oxybutynin chloride ER po 10 mg by mouth daily Oxybutynin 10 mg ER tab 10 mg by mouth once daily Prednisone 10 mg tab Take 4 tablets by mouth Daily. Take 4 tablets (40mg) on 11/25/19. Foll owed by 2 tablets (20mg) for 4 days 11/26, 11/27, 11/28, and 11/29. Followed by 1 tablet (10mg) maintenance indefinitely 10 mg by mouth once daily Senna 8.6 mg tab Take by mouth twice daily as needed Take 1 tab by mouth twice daily as needed for constipation Sodium chloride 0.65% nasal spray 2 sprays by each nare route daily as needed for nasal dry ness 2 sprays by each nare route two to three times daily as needed for dryness Removed therapy: Medication: Prior to Admission Sig: Reason for Removal: Albuterol 90 mcg/puff inhaler 2 puffs into the lungs every 4 hours as needed for wheezing Therapy complete Bisacodyl 5 mg EC tab 5 mg by mouth daily Therapy complete Polyethylene glycol 3350 powder 17 g by mouth daily as needed for constipation Duplicate e ntry Patient's son denies use of recreational substances, tobacco or alcohol. Other: Medication: Prior to Admission Sig: Patient taking differently [employer]PER[employer] as: Brimonidine 0.2% ophth marcelino 1 drop into both eyes twice daily Last filled: 05/24/19 #5 ml Patients son states she still has this at home Budesonide 0.5 mg/2 ml neb marcelino 2 ml via neb 2 times daily 1 via neb four times daily mixe d with duo-neb Best possible [employer] medication list after pharmacy review: PT REPORTED TAKING NOT TAKING Medication Sig Last Dose Dispense Doc. Provider acetaminophen (TYLENOL) 325 mg tablet Take 2 tablets by mouth every 6 hours as needed for Pain (or fever >= 38.6 C (101.5 F)). Taking 120 tablet Sam Valladares MD albuterol-ipratropium 2.5-0.5 mg/3 mL SOLN Take 3 mLs by nebulization Every 4 hours. [place] [facility] aspirin 81 mg chewable tablet Take 1 tablet by mouth Daily. Taking 30 tablet Candido Link MD atorvaSTATin (LIPITOR) 20 mg tablet Take 1 tablet by mouth every morning. Taking 90 tablet Candido Link MD bacitracin 500 UNIT/GM ointment Apply 1 Application topically 3 times daily. to bedsore on buttocks Taking Alfredo Arciniega MD benzonatate (TESSALON) 100 mg capsule Take 1 capsule by mouth 3 times daily as needed for Cough. Taking 21 capsule Candido Link MD brimonidine (ALPHAGAN) 0.2% ophthalmic solution Place 1 drop into both eyes 2 times daily. Taking Anup Donohue MD budesonide (PULMICORT) 0.5 mg/2 mL nebulizer solution Take 2 mLs by nebulization 2 times d aily. Dx Code J44.90 Patient taking differently: Take 0.5 mg by nebulization 4 times daily. Taking Differently 180 mL Candido Link MD calcium carbonate (TUMS) 500 mg chewable tablet Chew and swallow 2 tablets Twice daily as needed for Heartburn or Indigestion. Taking Alfredo Arciniega MD carvedilol (COREG) 6.25 mg tablet Take 6.25 mg by mouth 2 times daily (with breakfast & di nner). Taking [facility] cholecalciferol (VITAMIN D-3) 25 mcg (1,000 units) tablet Take 1,000 Units by mouth Daily. Taking Alfredo Arciniega MD Cranberry 600 MG TABS Take 1 tablet by mouth Daily. Taking Alfredo Arciniega MD dicyclomine (BENTYL) 10 mg capsule Take [...] BY MOUTH ONCE DAILY Taking 30 ta josht Candido Link MD escitalopram (LEXAPRO) 5 MG tablet Take 5 mg by mouth Daily. Taking Kwaku Arciniega MD famotidine (PEPCID) 40 MG tablet Take 1 tablet by mouth nightly. Taking 90 tablet Haley Link MD ferrous sulfate 325 mg tablet Take 1 tablet by mouth daily (with breakfast). Taking 90 tab let Candido iLnk MD fluticasone (FLONASE) 50 mcg/nasal spray 1 spray by Nasal route Daily as needed for Allerg ies. Taking Historical ProviderMD furosemide (LASIX) 20 mg tablet Take 1 tablet by mouth 2 times daily. Taking 60 tablet Corazon Higuera MD HYDROcodone-acetaminophen (NORCO) 7.5-325 mg per [...] by mouth 2 times millie ly. Taking [facility] nitroglycerin (NITROSTAT) 0.[address] 0.4 mg under the tongue every 5 minutes a s needed for Chest pain. Taking Historical ProviderMD ondansetron (ZOFRAN ODT) 4 mg disintegrating tablet Take 1 tablet by mouth every 6 hours a s needed for Nausea. Taking 15 tablet Mir Lux MD oxybutynin (DITROPAN-XL) 10 MG 24 hr tablet Take 10 mg by mouth Daily. Taking [facility] oxygen Inhale 3 L into the lungs continuous. ALETHEA: 99 months. Taking 1 Container Isabelle Link MD pantoprazole (PROTONIX) 40 mg tablet Take 1 tablet by mouth every morning (before breakfas t). Taking 90 tablet Candido Link MD polyethylene glycol (MIRALAX) packet Take 17 g by mouth Daily as needed for Constipation. Taking [facility] polyvinyl alcohol (LIQUITEARS) 1.4% [...] dryness Taking Historical Provider, UNABLE TO FIND Adult Pull ups, medium size 100 each Candido Link MD Medication review performed and electronically signed by Alisson Kim, Media Services Director 2019 10:45 AM Reviewed by Autumn Sutherland, PharmD 12/02/2019 11:12 AM Landon Cooper Pha rmD - 12/01/2019 9:46 PM PST RENAL DOSE ADJUSTMENT PER PHARMACY PROTOCOL: Subjective/Objective: Ángela Crowley is a 89 y.o. year old female admitted on 12/01/2019 10:10 AM and is rece iving LEVOFLOXACIN BP 141/66 | Pulse 88 | Temp 35.3 C (95.5 F) (Oral) | Resp 21 | SpO2 95% Intake/Output Summary (Last 24 hours) at 12/01/20192145 Last data filed at 12/01/20192012 Gross per 24 hour Intake 200 ml Output 450 ml Net -250 ml Recent Labs Lab 12/01/19 1041 CREA 0.70 Estimated Creatinine Clearance: 46 mL/min (based on SCr of 0.7 mg/dL). Date Day of therapy Creatinine CrCl (mL/min) Dose-current Dose-new 12/01/19 1 0.7 46 750 mg q24hr 750 mg q48hr Assessment/Plan: 1. For creatinine clearance <50 mL/min, decrease dose of LEVOFLOXACIN as above. 2. Pharmacy will continue to follow and adjust dose as appropriate to clinical condition an d creatinine clearance changes RENAL DOSE ADJUSTMENT PROTOCOL Electronically signed by: Landon Baca PharmD 12/01/2019 9:46 PM Rosio Saha Phar mD - 12/01/2019 5:11 PM PSTPharmacy Services Probiotic protocol initiated for qualifying patients [...] radiation, Solid organ transplant, Active hematologic malignancy) Comment: florastor 250 mg po bid Plan: 1. Initiate probiotics per protocol; smartphrase ".rxprobiotics" added to admin instruction s on probiotic order; [x] Check when completed 2. Enter stop time for 5 days after antibiotics completed; [] Check when completed 3. AVS updated with ".rxprobioticdischarge"; [x] Check when completed Rosio Elizabeth PharmD 12/01/2019 5:11 PM Rosio Saha Ph armD - 12/01/2019 4:44 PM PST VANCOMYCIN PER PHARMACY PROTOCOL: AMS/Drug Name - vancomycin Patient: Ángela Crowley [id number] Admit: 12/01/2019 10:10 AM RELEVANT ALLERGIES: metronidazole, sulfa antibiotics 89 yrs old female patient admitted on 12/01/2019 for pneumonia and influenza A. 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 . Risk factors for MDR organisms include. HPI: increasing shortness of breath and wheezing. She is normally on 2L of O2 via NC at all times. Now having severe shortness of breath and wheezing and unable to live at home with h er son. Recent admit for similar symptoms and also found to have influenza A. Now symptoms a re worsening. Antimicrobials - Current Antibiotic Dates of Therapy vancomycin 12/01- levofloxacin 12/01- Antimicrobials - Discontinued Antibiotic Dates of Therapy Historical Vancomycin dosing (previous & current encounter): none Micro/Cultures/Diagnostics: Microbiology Results (Last 14 Days by Collected Date with Culture/Sensitivity) Procedure Component Value Units Date/Time Respiratory pathogen panel, NAAT [[id number]] Order Status: Sent Lab Status: No result Specimen: Body Fluid from Nasopharynx Culture, Respiratory, Lower, Smear [[id number]] Order Status: Sent Lab Status: No result Specimen: Body Fluid from Sputum, Expectorated Culture, MRSA [[id number]] Order Status: Sent Lab Status: No result Specimen: Tissue from Nares Culture, Blood [[id number]] Collected: 12/01/19 1234 Order Status: Sent Lab Status: In process Updated: 12/01/19 1237 Specimen: Peripheral Blood Culture, Blood [[id number]] Collected: 12/01/19 1234 Order Status: Sent Lab Status: In process Updated: 12/01/19 1237 Specimen: Blood from Line Gram Stain, reflex Sputum Culture [[id number]] Order Status: No result Lab Status: No result Specimen: Body Fluid from Sputum, Expectorated Culture, Respiratory, Lower, Smear [[id number]] (Susceptibility) Collected: 11/24/19 0014 Order Status: Completed Lab Status: Final result Updated: 11/26/19 1136 Specimen: Body Fluid from Sputum, Expectorated Culture 4+ Pseudomonas putida 4+ Usual Respiratory Kylee Gram Stain Result 4+ White Blood Cells 2+ Epithelial cells 4+ Gram positive cocci 1+ Yeast Susceptibility Pseudomonas putida (1) Antibiotic Interpretation Microscan Method Status Ceftazidime Sensitive <=1 ug/mL Not Specified Final Ceftriaxone Sensitive 8 ug/mL Not Specified Final Ciprofloxacin Sensitive <=0.25 ug/mL Not Specified Final Gentamicin Sensitive <=1 ug/mL Not Specified Final Meropenem Sensitive <=0.25 ug/mL Not Specified Final Tobramycin Sensitive <=1 ug/mL Not Specified Final Trimethoprim + Sulfamethoxazole Sensitive <=20 ug/mL Not Specified Final Culture, Urine [[id number]] (Susceptibility) Collected: 11/18/19 0634 Order Status: Completed Lab Status: Final result Updated: 11/21/19 124 Specimen: Urine, Clean Catch Culture >100,000 CFU/ml [...] 1 ug/mL Not Specified Final Culture, MRSA [[id number]] Collected: 11/18/19 0441 Order Status: Completed Lab Status: Final result Updated: 11/19/19 0719 Specimen: Tissue from Nares Culture 1+ Staphylococcus aureus,Methicillin resistant (MRSA) Comment: *INFECTION PREVENTION ALERT - MRSA* CONTACT PRECAUTIONS REQUIRED. Influenza A and B RNA, NAAT [[id number]] (Abnormal) Collected: 11/18/19128 Order Status: Completed Lab Status: Final result Updated: 11/18/19 0202 Specimen: Body Fluid from Nasopharynx Influenza A PCR Positive Influenza B PCR Negative Respiratory pathogen panel, NAAT [[id number]] (Normal) Collected: 11/18/19128 Order Status: Completed Lab Status: Final result Updated: 11/18/19 0427 Specimen: Body Fluid from Nasopharynx Parainfluenza 1 Not Detected Adenovirus Not Detected Human Metapneumovirus Not Detected Rhinovirus/Enterovirus Not Detected Parainfluenza 3 Not Detected Culture, Blood [[id number]] Collected: 11/18/19127 Order Status: Completed Lab Status: Final result Updated: 11/23/19 014 Specimen: Peripheral Blood Culture No growth after 5 days incubation. Culture, Blood [[id number]] Collected: 11/18/19127 Order Status: Completed Lab Status: Final result Updated: 11/23/19 014 Specimen: Peripheral Blood Culture No growth after 5 days incubation. Relevant cultures from previous admits: Date Source Organisms Sensitivities 11/24/19 resp Pseudomonas putida pansensitive 11/18/19 urine E. coli pansensitive Enterococcus faecalis pansensitive 08/21/19 urine Enterococcus faecium Sens: amp, pen, vanco E.coli pansensitive 07/21/19 resp Pseudomonas aeruginosa pansensitive UA: Admission Wt: Current Wt: Min/Max Temp past 24 hours:Temp Av.9 C (98.5 F) Min: 36.7 C (98.1 F) Max: 3 7.1 C (98.8 F) Estimated Creatinine Clearance: 46 mL/min (based on SCr of 0.7 mg/dL). No intake or output data in the 24 hours ending 12/01/19 1645 Temp: [36.7 C (98.1 F)-37.1 C (98.8 F)] 36.7 C (98.1 F) Pulse: [80-99] 90 Resp: [11-27] 20 BP: (103-138)/(45-68) 138/63 Recent Labs Lab 12/01/19 1041 12/01/19 1021 WBC 11.2* -- CREA 0.70 -- PROCALCITONI -- 0.07 Imagin/26: CXR - pulmonary venous congestion; prominent pulmonary arteries indicating pulmonary htn 12/01 CT Chest: MUCOUS PLUGGING WITHIN RIGHT-SIDED AIRWAYS WITH EXTENSIVE CLUSTERED NODULAR ITY INVOLVING PORTIONS OF BOTH LUNGS AND PATCHY CONSOLIDATION/GROUND GLASS OPACITY IN THE UPPER LOBES, CONSISTENT WITH MULTIFOCAL LIKELY AIRWAY CENTERED INFECTI ON. A VERY SMALL RIGHT PLEURAL EFFUSION IS ALSO PRESENT. VASCULAR CALCIFICATION WITH SIMILAR ASCENDING AORTIC DILATION UP TO A DIAMETER OF 4 CM, AND MAIN PULMONARY ARTERY ENLARGEMENT SUGGESTING PULMONARY ARTERIAL HYPERTENSION. Date 12/01 Time of Vancomycin draw -- Vancomycin result -- LEVEL or TROUGH Serum Creatinine 0.70 CrCl (mL/min) 46 Vanco load/bolus - mg Vanco dose - current -- Vanco dose - new 1000 mg q24hr Assessment: Vancomycin Day # 1 Other antibiotics: levofloxacin Target Trough: 15-20, pna WBC: 11.2; Renal: stable; Temp: afebrile; Culture: blood-pending 11/24 resp -pseudomonas putida; VS: wnl Renal function: UOP: pending Will draw level due to patient's low BW, age, renal function borderline for q12h dosing Plan: 1. Vancomycin 1000 mg IVPB q24h 2. Vancomycin level ordered for 12/03/19 @ 1300 (draw 60 minutes prior to hanging the 3rd do se) 3. Serum creatinine DAILY for [...] Dosing and Monitoring Protocol Electronically signed by: Rosio Elizabeth, PharmD 12/01/2019 4:45 PM documented in this encounter Plan of [...] PATEL | | | | | | [id number] | | | | | | | | +--------+ + + + + | 04/11/ | Appointment | Radiology | Shawn Michael | | | 2019 | | | MD Marcelino [address] | | | | | | [address] | | | | | | [place] [address] | | | | | | [phone] | | | | | | | | +--------+ + + + + | 04/13/ | Office | Cardiology | Shawn Michael | | 2019 | Visit | | MD Marcelino [address] | | | | | | [address] | | | | | | [place] [address] | | | | | | [phone] | | | | | | | | +--------+ + + + + + +------+--------+ + + | Name | Type | Priori | Associated Diagnoses | Order Schedule | | | | ty | | | + +------+--------+ + + | DME: Walker | DME | Routin | Impaired mobility | Ordered: 12/02/2019 | | | | e | Hypoxemia | | + +------+--------+ + + + + +--------+ + + | Name | Type | Priori | Associated Diagnoses | Order Schedule | | | | ty | | | + + +--------+ + + | Amb Referral to Home | Outpatient | Routin | COPD with acute | Ordered: 12/10/2019 | | [facility] | Referral | e | exacerbation (HCC) | | | | | | Centrilobular | | | | | | emphysema (HCC) | | | | | | Moderate | | | | | | protein-calorie | | | | | | malnutrition (HCC) | | | | | | Pneumonia due to | | | | | | 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 | | | | | | Staphylococcus | | | | | | aureus, unspecified | | | | | | laterality, | | | | | | unspecified part of | | | | | | lung (HCC) | | + + +--------+ + + documented as of this encounter Procedures + +--------+ + + + | Procedure Name | Priori | Date/Time | Associated Diagnosis | Comments | | | ty | | | | + +--------+ + + + | CBC WITH | Routin | 12/10/2019 | | Results for this | | DIFFERENTIAL | e | 4:58 AM | | procedure are in the | | | | PST | | results section. | + +--------+ + + + | BASIC METABOLIC | Routin | 12/10/2019 | | Results for this | | PANEL | e | 4:58 AM | | procedure are in the | | | | PST | | results section. | + +--------+ + + + | CBC WITH | Routin | 12/09/2019 | | Results for this | | DIFFERENTIAL | e | 3:49 AM | | procedure are in the | | | | PST | | results section. | + +--------+ + + + | BASIC METABOLIC | Routin | 12/09/2019 | | Results for this | | PANEL | e | 3:49 AM | | procedure are in the | | | | PST | | results section. | + +--------+ + + + | PROCALCITONIN, SERUM | Add-On | 12/09/2019 | | Results for this | | | | 3:34 AM | | procedure are in the | | | | PST | | results section. | + +--------+ + + + | CBC WITH | Routin | 12/08/2019 | | Results for this | | DIFFERENTIAL | e | 4:02 AM | | procedure are in the | | | | PST | | results section. | + +--------+ + + + | BASIC METABOLIC | Routin | 12/08/2019 | | Results for this | | PANEL | e | 4:01 AM | | procedure are in the | | | | PST | | results section. | + +--------+ + + + | VANCOMYCIN, TROUGH | Timed | 12/07/2019 | | Results for this | | | | 3:00 PM | | procedure are in the | | | | PST | | results section. | + +--------+ + + + | CBC WITH | Routin | 12/07/2019 | | Results for this | | DIFFERENTIAL | e | 3:37 AM | | procedure are in the | | | | PST | | results section. | + +--------+ + + + | BASIC METABOLIC | Routin | 12/07/2019 | | Results for this | | PANEL | e | 3:31 AM | | procedure are in the | | | | PST | | results section. | + +--------+ + + + | URINALYSIS WITH | Routin | 12/06/2019 | | Results for this | | MICROSCOPIC WITH | e | 9:47 PM | | procedure are in the | | CULTURE IF INDICATED | | PST | | results section. | + +--------+ + + + | XR CHEST AP PORTABLE | Routin | 12/06/2019 | | Results for this | | | e | 12:54 PM | | procedure are in the | | | | PST | | results section. | + +--------+ + + + | CBC WITH | Routin | 12/06/2019 | | Results for this | | DIFFERENTIAL | e | 3:50 AM | | procedure are in the | | | | PST | | results section. | + +--------+ + + + | BASIC METABOLIC | Routin | 12/06/2019 | | Results for this | | PANEL | e | 3:50 AM | | procedure are in the | | | | PST | | results section. | + +--------+ + + + | VANCOMYCIN, TROUGH | Timed | 12/06/2019 | | Results for this | | | | 2:14 AM | | procedure are in the | | | | PST | | results section. | + +--------+ + + + | VANCOMYCIN, TROUGH | Timed | 12/05/2019 | | Results for this | | | | 1:46 PM | | procedure are in the | | | | PST | | results section. | + +--------+ + + + | PRODUCT: RBC | Routin | 12/05/2019 | | Results for this | | | e | 5:43 AM | | procedure are in the | | | | PST | | results section. | + +--------+ + + + | CBC NO DIFFERENTIAL | Routin | 12/05/2019 | | Results for this | | | e | 4:47 AM | | procedure are in the | | | | PST | | results section. | + +--------+ + + + | MAGNESIUM | Routin | 12/05/2019 | | Results for this | | | e | 4:47 AM | | procedure are in the | | | | PST | | results section. | + +--------+ + + + | BASIC METABOLIC | Routin | 12/05/2019 | | Results for this | | PANEL | e | 4:47 AM | | procedure are in the | | | | PST | | results section. | + +--------+ + + + | ECG 12 LEAD | LAUREN | 12/04/2019 | | Results for this | | | | 3:45 PM | | procedure are in the | | | | PST | | results section. | + +--------+ + + + | CULTURE, MRSA | Routin | 12/04/2019 | | Results for this | | | e | 1:24 PM | | procedure are in the | | | | PST | | results section. | + +--------+ + + + | VANCOMYCIN, TROUGH | Timed | 12/04/2019 | | Results for this | | | | 1:17 PM | | procedure are in the | | | | PST | | results section. | + +--------+ + + + | CBC NO DIFFERENTIAL | Routin | 12/04/2019 | | Results for this | | | e | 4:31 AM | | procedure are in the | | | | PST | | results section. | + +--------+ + + + | MAGNESIUM | Routin | 12/04/2019 | | Results for this | | | e | 4:31 AM | | procedure are in the | | | | PST | | results section. | + +--------+ + + + | BASIC METABOLIC | Routin | 12/04/2019 | | Results for this | | PANEL | e | 4:31 AM | | procedure are in the | | | | PST | | results section. | + +--------+ + + + | TRANSFUSE 1 UNIT RED | Routin | 12/04/2019 | | | | BLOOD CELLS | e | 1:00 AM | | | | | | PST | | | + +--------+ + + + | PRODUCT: RBC | Routin | 12/03/2019 | | Results for this | | | e | 10:37 PM | | procedure are in the | | | | PST | | results section. | + +--------+ + + + | CULTURE, | Routin | 12/03/2019 | | Results for this | | RESPIRATORY, LOWER, | e | 3:27 PM | | procedure are in the | | SMEAR | | PST | | results section. | + +--------+ + + + | VANCOMYCIN LEVEL | Timed | 12/03/2019 | | Results for this | | | | 1:11 PM | | procedure are in the | | | | PST | | results section. | + +--------+ + + + | XR CHEST AP PORTABLE | STAT | 12/03/2019 | Impaired mobility | Results for this | | | | 1:08 PM | | procedure are in the | | | | PST | | results section. | + +--------+ + + + | EXTRA GREEN TOP TUBE | Routin | 12/03/2019 | | Results for this | | | e | 12:07 PM | | procedure are in the | | | | PST | | results section. | + +--------+ + + + | IRON AND TRANSFERRIN | Add-On | 12/03/2019 | | Results for this | | | | 12:07 PM | | procedure are in the | | | | PST | | results section. | + +--------+ + + + | FERRITIN | Add-On | 12/03/2019 | | Results for this | | | | 12:07 PM | | procedure are in the | | | | PST | | results section. | + +--------+ + + + | XR CHEST 2 VIEWS | Routin | 12/03/2019 | | Results for this | | | e | 9:08 AM | | procedure are in the | | | | PST | | results section. | + +--------+ + + + | CBC NO DIFFERENTIAL | Routin | 12/03/2019 | | Results for this | | | e | 6:29 AM | | procedure are in the | | | | PST | | results section. | + +--------+ + + + | B TYPE NATRIURETIC | Routin | 12/03/2019 | | Results for this | | PEPTIDE | e | 6:29 AM | | procedure are in the | | | | PST | | results section. | + +--------+ + + + | MAGNESIUM | Routin | 12/03/2019 | | Results for this | | | e | 6:29 AM | | procedure are in the | | | | PST | | results section. | + +--------+ + + + | BASIC METABOLIC | Routin | 12/03/2019 | | Results for this | | PANEL | e | 6:29 AM | | procedure are in the | | | | PST | | results section. | + +--------+ + + + | CBC NO DIFFERENTIAL | Routin | 12/02/2019 | | Results for this | | | e | 5:46 AM | | procedure are in the | | | | PST | | results section. | + +--------+ + + + | MAGNESIUM | Routin | 12/02/2019 | | Results for this | | | e | 5:46 AM | | procedure are in the | | | | PST | | results section. | + +--------+ + + + | BASIC METABOLIC | Routin | 12/02/2019 | | Results for this | | PANEL | e | 5:46 AM | | procedure are in the | | | | PST | | results section. | + +--------+ + + + | HEMOGLOBIN | Routin | 12/01/2019 | | Results for this | | | e | 6:22 PM | | procedure are in the | | | | PST | | results section. | + +--------+ + + + | RESPIRATORY VIRUS | Routin | 12/01/2019 | | Results for this | | ANTIGENS PROFILE | e | 5:30 PM | | procedure are in the | | | | PST | | results section. | + +--------+ + + + | HEMOGLOBIN AND | STAT | 12/01/2019 | | Results for this | | HEMATOCRIT | | 12:34 PM | | procedure are in the | | | | PST | | results section. | + +--------+ + + + | CULTURE, BLOOD | STAT | 12/01/2019 | | Results for this | | | | 12:34 PM | | procedure are in the | | | | PST | | results section. | + +--------+ + + + | CULTURE, BLOOD | STAT | 12/01/2019 | | Results for this | | | | 12:34 PM | | procedure are in the | | | | PST | | results section. | + +--------+ + + + | TYPE AND SCREEN | STAT | 12/01/2019 | | Results for this | | | | 11:11 AM | | procedure are in the | | | | PST | | results section. | + +--------+ + + + | CT CHEST WO CONTRAST | STAT | 12/01/2019 | | Results for this | | | | 10:54 AM | | procedure are in the | | | | PST | | results section. | + +--------+ + + + | TROPONIN I | STAT | 12/01/2019 | | Results for this | | | | 10:41 AM | | procedure are in the | | | | PST | | results section. | + +--------+ + + + | PROTIME INR | STAT | 12/01/2019 | | Results for this | | | | 10:41 AM | | procedure are in the | | | | PST | | results section. | + +--------+ + + + | CBC WITH | STAT | 12/01/2019 | | Results for this | | DIFFERENTIAL | | 10:41 AM | | procedure are in the | | | | PST | | results section. | + +--------+ + + + | B TYPE NATRIURETIC | STAT | 12/01/2019 | | Results for this | | PEPTIDE | | 10:41 AM | | procedure are in the | | | | PST | | results section. | + +--------+ + + + | COMPREHENSIVE | STAT | 12/01/2019 | | Results for this | | METABOLIC PANEL | | 10:41 AM | | procedure are in the | | | | PST | | results section. | + +--------+ + + + | ECG 12 LEAD | STAT | 12/01/2019 | | Results for this | | | | 10:32 AM | | procedure are in the | | | | PST | | results section. | + +--------+ + + + | XR CHEST AP PORTABLE | STAT | 12/01/2019 | | Results for this | | | | 10:32 AM | | procedure are in the | | | | PST | | results section. | + +--------+ + + + | PROCALCITONIN, SERUM | Add-On | 12/01/2019 | | Results for this | | | | 10:21 AM | | procedure are in the | | | | PST | | results section. | + +--------+ + + + | OXYGEN THERAPY | STAT | 12/01/2019 | | | | | | 10:11 AM | | | | | | PST | | | + +--------+ + + + documented in this encounter Results CBC with Differential (12/10/2019 4:58 AM PST) + + + + + + | Component | Value | Ref Range | Performed | Pathologist | | | | | At | Signature | + + + + + + | WBC | 9.9 | 4.0 - 11.0 K/uL | [facility] | | | | | [facility] | | | | | | [facility] | | | | | | C[facility] - | | | | | | LABORATORY | | + + + + + + | RBC | 3.12 (L) | 3.70 - 5.20 | [facility] [...] + + + + | RDW-SD | 50.8 (H) | 35.1 - 46.3 fL | [...] + + + + | % | 76.8 | 45.0 - 82.0 % | [facility] | | | Neutrophils | | | [facility] | | | | | | [facility] | | | | | | CENTER - | | | | | | LABORATORY | | + + + + + + | % | 12.5 (L) | 20.0 - 45.0 % | [facility] | | | Lymphocytes | | | [facility] | | | | | | MEDICAL | | | | | | CENTER - | | | | | | LABORATORY | | + + + + + + | % Monocytes | 9.3 | 4.0 - 12.0 % | [facility] [...] + + + + | Absolute | 7.63 | 1.80 - 8.50 | [facility] | | | Neutrophils | | K/uL | [facility] | | | | | | MEDICAL | | | | | | CENTER - | | | | | | LABORATORY | | + + + + + + | Absolute | 1.24 | 0.60 - 3.20 | [facility] | [...] + | [facility] | [address] | [place] | [phone] | | [facility] | | [address] | | | - LABORATORY | | | | + + + + + Basic Metabolic Panel (12/10/2019 4:58 AM PST) + + + + [...] 0.63 | 0.55 - 1.02 | [facility] | [...] mL/min/1.73m2 | [facility] | | | MALDIVIAN | RATE,ESTIMATED | | MEDICAL | | | | mL/min/1.69v9Ervm than | | CENTER - | | [...] [address] | [place] | [phone] | | [facility] | | [address] | | | - LABORATORY | | | | + + + + + CBC with Differential (12/09/2019 3:49 AM PST) + + + + + + | Component | Value | Ref Range | Performed | Pathologist | | | | | At | Signature | + + + + + + | WBC | 11.7 (H) | 4.0 - 11.0 K/uL | [facility] | | | | | | [facility] | | | | | | [facility]ICAL | | | | | | CENTER - | | | | | | LABORATORY | | + + + + + + | RBC | 3.12 (L) | 3.70 - 5.20 | [facility] [...] + + + + | Hematocrit | 31.3 (L) | 34.0 - 47.0 % | [facility] | | | | | | [facility] | | | | | | MEDICAL | | | | | | CENTER - | | | | | | LABORATORY | | + + + + + + | MCV | 100.3 | 83.0 - 101.0 fL | [facility] [...] + + + + | RDW-SD | 54.2 (H) | 35.1 - 46.3 fL | [...] + + + + | % | 9.9 (L) | 20.0 - 45.0 % | [facility] | | | Lymphocytes | | | [facility] | | | | | | MEDICAL | | | | | | CENTER - | | | | | | LABORATORY | | + + + + + + | % Monocytes | 6.6 | 4.0 - 12.0 % | [facility] [...] Granulocyte | Preliminary studies have | | [facility] | | | s | indicated the IG% | | MEDICAL | | | | and/or IG# show promise | | CENTER - | | | | as an early indicator | | LABORATORY | | | | for infection. | | | | + + + + + + | Absolute | 9.65 (H) | 1.80 - 8.50 | [facility] | | | Neutrophils | | K/uL | [facility] | | | | | | MEDICAL | | | | | | CENTER - | | | | | | LABORATORY | | + + + + + + | Absolute | 1.16 | 0.60 - 3.20 | [facility] | [...] [address] | [place] | [phone] | | [facility] | | [address] | | | - LABORATORY | | | | + + + + + Basic Metabolic Panel (12/09/2019 3:49 AM PST) + + + + + [...] 76 | 60 - 106 mg/dL | [facility] | | | | | | [facility] | | | | | | MEDICAL | | | | | | CENTER - | | | | | | LABORATORY | | + + + + + + | BUN | 24 (H) | 9 - 23 mg/dL | [facility] | | | | | | [facility] | | | | | | MEDICAL | | | | | | CENTER - | | | | | | LABORATORY | | + + + + + + | Creatinine | 0.64 | 0.55 - 1.02 | [facility] | | | | | mg/dL | [facility] | | | | | | MEDICAL | | | | | | CENTER - | | | | | | LABORATORY | | + + + + + + | eGFR if not | >60Comment: GLOMERULAR | >=60 | [facility] | | | | FILTRATION | mL/min/1.73m2 | [facility] | | | MALDIVIAN | RATE,ESTIMATED | | MEDICAL | | | | mL/min/1.99k4Rrqg than | | CENTER - | | [...] + + + + | BUN/Creatin | 37.5 | | [facility] | | | ine [...] | [address] | [place] | [phone] | | [facility] | | [address] | | | - LABORATORY | | | | + + + + + Procalcitonin (12/09/2019 3:34 AM PST) + + + + + [...] [address] | [place] | [phone] | | [facility] | | [address] | | | - LABORATORY | | | | + + + + + CBC with Differential (12/08/2019 4:02 AM PST) + + + + + + | Component | Value | Ref Range | Performed | Pathologist | | | | | At | Signature | + + + + + + | WBC | 7.1 | 4.0 - 11.0 K/uL | [facility] [...] + + + + | Hematocrit | 28.4 (L) | 34.0 - 47.0 % | [facility] | | | | | | [facility] | | | | | | MEDICAL | | | | | | CENTER - | | | | | | LABORATORY | | + + + + + + | MCV | 97.9 | 83.0 - 101.0 fL | [facility] | | | | | | [facility] | | | | | | MEDICAL | | | | | | CENTER - | | | | | | LABORATORY | | + + + + + + | MCH | 31.0 | 28.0 - 35.0 pg | [facility] [...] + + + + | % | 77.2 | 45.0 - 82.0 % | [facility] | | | Neutrophils | | | [facility] | | | | | | MEDICAL | | | | | | CENTER - | | | | | | LABORATORY | | + + + + + + | % | 12.3 (L) | 20.0 - 45.0 % | [facility] | | | Lymphocytes | | | [facility] | | | | | | MEDICAL | | | | | | CENTER - | | | | | | LABORATORY | | + + + + + + | % Monocytes | 9.6 | 4.0 - 12.0 % | [facility] [...] + + + + | Absolute | 5.48 | 1.80 - 8.50 | [facility] | | | Neutrophils | | K/uL | [facility] | | | | | | MEDICAL | | | | | | CENTER - | | | | | | LABORATORY | | + + + + + + | Absolute | 0.87 | 0.60 - 3.20 | [facility] | [...] [address] | [place] | [phone] | | [facility] | | [address] | | | - LABORATORY | | | | + + + + + Basic Metabolic Panel (12/08/2019 4:01 AM PST) + + + + + [...] (L) | 3 - 16 mmol/L | [facility] | | | | [...] mL/min/1.73m2 | [facility] | | | MALDIVIAN | RATE,ESTIMATED | | MEDICAL | | | | mL/min/1.62y5Dxlb than | | CENTER - | | [...] + + + + | BUN/Creatin | 26.2 | | [facility] | | | ine [...] [address] | [place] | [phone] | | [facility] | | [address] | | | - LABORATORY | | | | + + + + + Vancomycin, Trough (12/07/2019 3:00 PM PST) + + + + + + | Component | Value | Ref Range | Performed | Pathologist | | | | | At | Signature | + + + + + + | Date of | | | [facility] | | | Last Dose | | | [facility] | | | | | | MEDICAL | | | | | | CENTER - | | | | | | LABORATORY | | + + + + + + | Time of | | | [facility] | | | Last Dose | | | [facility] | | | | | | MEDICAL | | | | | | CENTER - | | | | | | LABORATORY | | + + + + + + | Vancomycin | 21.4 ()Comment: | 5.0 - 10.0 | [facility] | | | Trough | Critical Result called | ug/mL | [facility] | | | | to and read back by mike | | MEDICAL | | | | richard MELLO on | | CENTER - | | | | 12/07/2019 at 3:43 PM by | | LABORATORY | | [...] [address] | [place] | [phone] | | [facility] | | [address] | | | - LABORATORY | | | | + + + + + CBC with Differential (12/07/2019 3:37 AM PST) + + + + + + | Component | Value | Ref Range | Performed | Pathologist | | | | | At | Signature | + + + + + + | WBC | 7.6 | 4.0 - 11.0 K/uL | [facility] [...] + + + + | Hematocrit | 27.7 (L) | 34.0 - 47.0 % | [...] + + + + | RDW-SD | 52.8 (H) | 35.1 - 46.3 fL | [facility] | | | | | | [facility] | | | | | | MEDICAL | | | | | | CENTER - | | | | | | LABORATORY | | + + + + + + | Platelet | 130 (L) | 140 - 440 K/uL | [...] + + + + | % | 81.0 | 45.0 - 82.0 % | [facility] [...] + + + | % Monocytes | 9.2 | 4.0 - 12.0 % | [facility] [...] + + + + | Absolute | 6.19 | 1.80 - 8.50 | [facility] | [...] + + + + | Absolute | 0.70 | 0.00 - 1.00 | [facility] | [...] + | [facility] | [address] | [place] | [phone] | | [facility] | | [address] | | | - LABORATORY | | | | + + + + + Basic Metabolic Panel (12/07/2019 3:31 AM PST) + + + + + [...] + + + + | K | 3.3 (L) | 3.4 - 5.1 | [facility] [...] + + + + | CO2 | 37 (H) | 20 - 31 mmol/L | [...] + + + + | Glucose | 74 | 60 - 106 mg/dL | [facility] [...] + + + + | Creatinine | 0.69 | 0.55 - 1.02 | [facility] | | | | | mg/dL | [facility] | | | | | | MEDICAL | | | | | | CENTER - | | | | | | LABORATORY | | + + + + + + | eGFR if not | >60Comment: GLOMERULAR | >=60 | [facility] | | | | FILTRATION | mL/min/1.73m2 | [facility] | | | MALDIVIAN | RATE,ESTIMATED | | MEDICAL | | | | mL/min/1.06a6Ymjm than | | CENTER - | | [...] [address] | [place] | [phone] | | [facility] | | [address] | | | - LABORATORY | | | | + + + + + Urinalysis with Microscopic with Culture if Indicated (12/06/2019 9:47 PM PST) + + + + + [...] + + + + | Clarity | Turbid (A) | Clear | [facility] | | | | | | [facility] | | | | | | MEDICAL | | | | | | CENTER - | | | | | | LABORATORY | | + + + + + + | pH, Urine | 7.0 | 5.0 - 8.0 | [facility] | | | | | | [facility] | | | | | | MEDICAL | | | | | | CENTER - | | | | | | LABORATORY | | + + + + + + | Specific | 1.008 | 1.001 - 1.030 | [facility] | | | [place], | | | [facility] | | [...] + + + | Red Blood | 5-10 (A) | 0 - [...] + | [facility] | [address] | [place] | [phone] | | [facility] | | [address] | | | - LABORATORY | | | | + + + + + XR Chest AP Portable (12/06/2019 12:54 PM PST) + + | Specimen | + + | | + + + + + | Impressions | Performed At | + + + | No acute findings. Dictated and Signed by: Patrick Rodriguez MD | [facility] | | Electronically signed: 12/06/2019 2:35 PM | | + + + + + + | Narrative | Performed At | + + + | XR CHEST AP PORTABLE 12/06/2019 12:53 PM HISTORY: eval pna. | [facility] | | COMPARISON: Multiple priors. Findings: There is a right PICC line | | | with tip at the cavoatrial junction. Heart size is at the upper | | | limits of normal. There is atherosclerosis of the aorta. A stent is | | | noted over the lower aorta. Central pulmonary vasculature is normal. | | | Mild diffuse scarring are present of the bilateral lungs. | | | Degenerative changes are noted of the shoulders. There is moderate | | | spondylosis. | | + + + + + | Procedure Note | + + | Kobe, Rad Results In - 12/06/2019 2:39 PM PST XR CHEST AP PORTABLE 12/06/2019 12:53 PM | | | | HISTORY: eval pna. | | | | COMPARISON: Multiple priors. | | | | Findings: | | There is a right PICC line with tip at the cavoatrial junction. Heart size is at | | the upper limits of normal. There is atherosclerosis of the aorta. A stent is | | noted over the lower aorta. Central pulmonary vasculature is normal. Mild | | diffuse scarring are present of the bilateral lungs. Degenerative changes are | | noted of the shoulders. There is moderate spondylosis. | | | | IMPRESSION: | | No acute findings. | | | | Dictated and Signed by: Patrick Rodriguez MD | | Electronically signed: 12/06/2019 2:35 PM | + + + +---------+ + + | Performing | Address | City/State/Zipcode | Phone Number | | Organization | | | | + +---------+ + + | [facility] | | | | + +---------+ + + Basic Metabolic Panel (12/06/2019 3:50 AM PST) + + + + + [...] + + + + | CO2 | 37 (H) | 20 - 31 mmol/L | [...] + + + + | Creatinine | 0.61 | 0.55 - 1.02 | [facility] | [...] mL/min/1.73m2 | [facility] | | | MALDIVIAN | RATE,ESTIMATED | | MEDICAL | | | | mL/min/1.95w9Fqiv than | | CENTER - | | [...] + + + + | BUN/Creatin | 24.6 | | [facility] | | | ine [...] [address] | [place] | [phone] | | [facility] | | [address] | | | - LABORATORY | | | | + + + + + CBC with Differential (12/06/2019 3:50 AM PST) + + + + + + | Component | Value | Ref Range | Performed | Pathologist | | | | | At | Signature | + + + + + + | WBC | 11.3 (H) | 4.0 - 11.0 K/uL | [...] + + + + | Hematocrit | 32.6 (L) | 34.0 - 47.0 % | [...] + + + + | RDW-SD | 52.7 (H) | 35.1 - 46.3 fL | [facility] | | | | | | [facility] | | | | | | MEDICAL | | | | | | CENTER - | | | | | | LABORATORY | | + + + + + + | Platelet | 163 | 140 - 440 K/uL | [facility] [...] + + + + | % | 79.3 | 45.0 - 82.0 % | [facility] | | | Neutrophils | | | [facility] | | | | | | MEDICAL | | | | | | CENTER - | | | | | | LABORATORY | | + + + + + + | % | 12.4 (L) | 20.0 - 45.0 % | [facility] | | | Lymphocytes | | | [facility] | | | | | | MEDICAL | | | | | | CENTER - | | | | | | LABORATORY | | + + + + + + | % Monocytes | 7.5 | 4.0 - 12.0 % | [facility] [...] + + + + | Absolute | 8.92 (H) | 1.80 - 8.50 | [facility] | | | Neutrophils | | K/uL | [facility] | | | | | | MEDICAL | | | | | | CENTER - | | | | | | LABORATORY | | + + + + + + | Absolute | 1.39 | 0.60 - 3.20 | [facility] | [...] | Absolute | 0.05 | 0.00 - 0.40 | [facility] | [...] [address] | [place] | [phone] | | [facility] | | [address] | | | - LABORATORY | | | | + + + + + Vancomycin, Trough (12/06/2019 2:14 AM PST) + + + + + + | Component | Value | Ref Range | Performed | Pathologist | | | | | At | Signature | + + + + + + | Date of | | | [facility] | | | Last Dose | | | [facility] | | | | | | MEDICAL | | | | | | CENTER - | | | | | | LABORATORY | | + + + + + + | Time of | | | [facility] | | | Last Dose | | | [facility] | | | | | | MEDICAL | | | | | | CENTER - | | | | | | LABORATORY | | + + + + + + | Vancomycin | 18.8 (H) | 5.0 - 10.0 | [facility] | | | Trough | | ug/mL | [facility] | | | | [...] [address] | [place] | [phone] | | [facility] | | [address] | | | - LABORATORY | | | | + + + + + Vancomycin, Trough (12/05/2019 1:46 PM PST) + + + + + + | Component | Value | Ref Range | Performed | Pathologist | | | | | At | Signature | + + + + + + | Date of | | | [facility] | | | Last Dose | | | [facility] | | | | | | MEDICAL | | | | | | CENTER - | | | | | | LABORATORY | | + + + + + + | Time of | | | [facility] | | | Last Dose | | | [facility] | | | | | | MEDICAL | | | | | | CENTER - | | | | | | LABORATORY | | + + + + + + | Vancomycin | 17.0 (H) | 5.0 - 10.0 | [facility] | | | Trough | | ug/mL | [facility] | | | | [...] | [address] | [place], [place] | [phone] | | [facility] | | [address] | | | - LABORATORY | | | | + + + + + Red Blood Cells (PRBC) - Crossmatch (12/05/2019 5:43 AM PST) + + + + + + | Component | Value | Ref Range | Performed | Pathologist | | | | | At | Signature | + + + + + + | Product | [id number] | | [facility] | | | Code | | | [facility] | | | | | | MEDICAL | | | | | | CENTER - | | | | | | BLOOD BANK | | + + + + + + | UNIT # | [id number] | | [facility] | | | | [...] + + + | Unit Status | Returned | | [facility] | | | | [...] + + + + | Blood | [id number] | | [facility] | | | Product | | | [facility] | | | Expiration | | | MEDICAL | | | Date and | | | CENTER - | | | Time | | | BLOOD BANK | | + + + + + + | Product | [id number] | | [facility] | | | Blood Type | | | [facility] | | | Barcode | | [...] | | | [facility] | | [address] | | | - BLOOD BANK | | | | + + + + + CBC no Differential (12/05/2019 4:47 AM PST) + + + + + + | Component | Value | Ref Range | Performed | Pathologist | | | | | At | Signature | + + + + + + | WBC | 11.4 (H) | 4.0 - 11.0 K/uL | [...] + + + + | RDW-CV | 15.4 (H) | <15.0 % | [facility] | [...] [address] | [place] | [phone] | | [facility] | | [address] | | | - LABORATORY | | | | + + + + + Magnesium (12/05/2019 4:47 AM PST) + +-------+ + + + | Component | Value | Ref Range | Performed | Pathologist | | | | | At | Signature | + +-------+ + + + | Magnesium | 1.8 | 1.6 - 2.6 mg/dL | [facility] [...] + | [facility] | [address] | [place] | [phone] | | [facility] | | [address] | | | - LABORATORY | | | | + + + + + Basic Metabolic Panel (12/05/2019 4:47 AM PST) + + + + + [...] + + + + | Creatinine | 0.58 | 0.55 - 1.02 | [facility] | | | | | mg/dL | [facility] | | | | | | MEDICAL | | | | | | CENTER - | | | | | | LABORATORY | | + + + + + + | eGFR if not | >60Comment: GLOMERULAR | >=60 | [facility] | | | | FILTRATION | mL/min/1.73m2 | [facility] | | | MALDIVIAN | RATE,ESTIMATED | | MEDICAL | | | | mL/min/1.18d3Tazm than | | CENTER - | | [...] 7.6 (L) | 8.7 - 10.4 | [facility] | | | | | mg/dL | [facility] | | | | | | [...] [address] | [place] | [phone] | | [facility] | | [address] | | | - LABORATORY | | | | + + + + + ECG 12 lead (12/04/2019 3:45 PM PST) + + + + + + | Component | Value | Ref Range | Performed | Pathologist | | | | | At | Signature | + + + + + + | VENTRICULAR | 90 | BPM | [facility] | | | RATE EKG | | | | | + + + + + + | ATRIAL RATE | 90 | BPM | [facility] | | + + + + + + | P-R | 122 | ms | [facility] | | | INTERVAL | | | | | + + + + + + | QRS | 90 | ms | [facility] | | | DURATION | | | | | + + + + + + | Q-T | 346 | ms | [facility] | | | INTERVAL | | | | | + + + + + + | Q-T | 423 | ms | [facility] | | [...] ventricular | | | | | | hypertrophyWhen compared | | | | | | with ECG of 01-DEC-2019 | | | | | | 10:32,No significant | | | | | | change was | | | | | | foundConfirmed by | | | | | | LEONIDAS CALVO MD ([id number]) | | | | | | on 12/05/2019 7:17:50 AM | | | | + + [...] | + +---------+ + + Culture, MRSA (12/04/2019 1:24 PM PST) + + + + + [...] + | [facility] | [address] | [place] | [phone] | | [facility] | | [address] | | | - LABORATORY | | | | + + + + + Vancomycin, Trough (12/04/2019 1:17 PM PST) + + + + + + | Component | Value | Ref Range | Performed | Pathologist | | | | | At | Signature | + + + + + + | Date of | | | [facility] | | | Last Dose | | | [facility] | | | | | | MEDICAL | | | | | | CENTER - | | | | | | LABORATORY | | + + + + + + | Time of | | | [facility] | | | Last Dose | | | [facility] | | | | | | MEDICAL | | | | | | CENTER - | | | | | | LABORATORY | | + + + + + + | Vancomycin | 12.0 (H) | 5.0 - 10.0 | [facility] | | | Trough | | ug/mL | [facility] | | | | [...] [address] | [place] | [phone] | | [facility] | | [address] | | | - LABORATORY | | | | + + + + + CBC no Differential (12/04/2019 4:31 AM PST) + + + + + [...] + + + + | Hematocrit | 31.1 (L) | 34.0 - 47.0 % | [facility] | | | | | | [facility] | | | | | | MEDICAL | | | | | | CENTER - | | | | | | LABORATORY | | + + + + + + | MCV | 97.5 | 83.0 - 101.0 fL | [facility] [...] + + + + | RDW-CV | 15.6 (H) | <15.0 % | [facility] | [...] + + + + | Platelet | 175 | 140 - 440 K/uL | [facility] [...] + | [facility] | [address] | [place] | [phone] | | [facility] | | [address] | | | - LABORATORY | | | | + + + + + Magnesium (12/04/2019 4:31 AM PST) + +-------+ + + + [...] [address] | [place] | [phone] | | [facility] | | [address] | | | - LABORATORY | | | | + + + + + Basic Metabolic Panel (12/04/2019 4:31 AM PST) + + + + + [...] | 0.57 | 0.55 - 1.02 | [facility] | | | | | mg/dL | [facility] | | | | | | MEDICAL | | | | | | CENTER - | | | | | | LABORATORY | | + + + + + + | eGFR if not | >60Comment: GLOMERULAR | >=60 | [facility] | | | | FILTRATION | mL/min/1.73m2 | [facility] | | | MALDIVIAN | RATE,ESTIMATED | | MEDICAL | | | | mL/min/1.17n9Vdyg than | | CENTER - | | [...] | | | | | mg/dL | [facility] | | | | | | MEDICAL | | | | | | CENTER - | | | | | | LABORATORY | | + + + + + + | BUN/Creatin | 35.1 | | [facility] | | | ine [...] [address] | [place] | [phone] | | [facility] | | [address] | | | - LABORATORY | | | | + + + + + Red Blood Cells (PRBC) - Crossmatch (12/03/2019 10:37 PM PST) + + + + + + | Component | Value | Ref Range | Performed | Pathologist | | | | | At | Signature | + + + + + + | Product | [id number] | | [facility] | | | Code | | | [facility] | | | | | | MEDICAL | | | | | | CENTER - | | | | | | BLOOD BANK | | + + + + + + | UNIT # | [id number] | | [facility] | | | | [...] + + + + | Blood | [id number] | | [facility] | | | Product [...] | | | [facility] | | [address] | | | - BLOOD BANK | | | | + + + + + Culture, Respiratory, Lower, Smear (12/03/2019 3:27 PM PST) + + + + + + | Component | Value | Ref Range | Performed | Pathologist | | | | | At | Signature | + + + + + + | Culture | 4+ Staphylococcus | | [facility] | | | | aureus,Methicillin | | [facility] | | | | resistant (MRSA)Comment: | | MEDICAL | | | | *INFECTION PREVENTION | | CENTER - | | | | ALERT - MRSA* CONTACT | | LABORATORY | | | | PRECAUTIONS REQUIRED. | | | | + + + + + + | Gram Stain | 3+ White Blood Cells | | [facility] | [...] [address] | [place] | [phone] | | [facility] | | [address] | | | - LABORATORY | | | | + + + + + Vancomycin Level (12/03/2019 1:11 PM PST) + +-------+ + + + | Component | Value | Ref Range | Performed | Pathologist | | | | | At | Signature | + +-------+ + + + | Date of | | | [facility] | | | Last Dose | | | [facility] | | | | | | MEDICAL | | | | | | CENTER - | | | | | | LABORATORY | | + +-------+ + + + | Time of | | | [facility] | | | Last Dose | | | [facility] | | | | | | [facility] | | | [facility] - | | | | | | LABORATORY | | + +-------+ + + + | Vancomycin | 11.1 | 5.0 - 20.0 | [facility] | | | Random | | ug/mL | [facility] | | | | [...] | [address] | [place] | [phone] | | [facility] | | [address] | | | - LABORATORY | | | | + + + + + XR Chest AP Portable (12/03/2019 1:08 PM PST) + + | Specimen | + + | | + + + + + | Impressions | Performed At | + + + | Right approach PICC line catheter. No radiographic evidence for | [facility] | | a postprocedural complication. Dictated and Signed by: Edwin Parson | | | MD [place] Electronically signed: 12/03/2019 1:17 PM | | + + + + + + | Narrative | Performed At | + + + | EXAM: XR CHEST AP PORTABLE dated 12/03/2019 1:08 PM HISTORY: picc | [facility] | | placement Comparison: 11/27/2019 TECHNIQUE: A single portable | | | view of the chest. FINDINGS: Interval placement of a right | | | approach PICC line catheter. The tip is in the distal superior vena | | | cava. This could be advanced x 1.5 cm and secured. No | | | pneumothorax. The exam is otherwise unchanged. | | + + + + + | Procedure Note | + + | Kobe, Rad Results In - 12/03/2019 1:20 PM PST EXAM: XR CHEST AP PORTABLE dated | | 12/03/2019 1:08 PMHISTORY: picc placementComparison: 11/27/2019TECHNIQUE: A single | | portable view of the chest.FINDINGS:Interval placement of a right approach PICC line | | catheter. The tip is in thedistal superior vena cava. This could be advanced x 1.5 cm | | and secured. Nopneumothorax. The exam is otherwise unchanged. IMPRESSION: Right | | approach PICC line catheter. No radiographic evidence for apostprocedural | | complication.Dictated and Signed by: Edwin Jarrell MD Electronically signed: | | 12/03/2019 1:17 PM | |FINDINGS: | | | |Interval placement of a right approach PICC line catheter. The tip is in the | |distal superior vena cava. This could be advanced x 1.5 cm and secured. No | |pneumothorax. The exam is otherwise unchanged. | | | |IMPRESSION: | | | |Right approach PICC line catheter. No radiographic evidence for a | |postprocedural complication. | | | |Dictated and Signed by: Edwin Jarrell MD | | Electronically signed: 12/03/2019 1:17 PM | + + + +---------+ + + | Performing | Address | City/State/Zipcode | Phone Number | | Organization | | | | + +---------+ + + | [facility] | | | | + +---------+ + + Ferritin (12/03/2019 12:07 PM PST) + +-------+ + + + | Component | Value | Ref Range | Performed | Pathologist | | | | | At | Signature | + +-------+ + + + | FERRITIN | 161 | 7 - 271 ng/mL | [facility] [...] [address] | [place] | [phone] | | [facility] | | [address] | | | - LABORATORY | | | | + + + + + Iron and Transferrin (12/03/2019 12:07 PM PST) + + + + + + | Component | Value | Ref Range | Performed | Pathologist | | | | | At | Signature | + + + + + + | Iron | 61 | 50 - 170 ug/dL | [facility] | | | | | | [facility] | | | | | | [facility]ICAL | | | | | | [facility] - | | | | | | LABORATORY | | + + + + + + | TRANSFERRIN | 157.0 (L) | 250.0 - 380.0 | [facility] | | | | | mg/dL | [facility] | | | | | | MEDICAL | | | | | | CENTER - | | | | | | LABORATORY | | + + + + + + | TIBC | 220 (L) | 235 - 425 ug/dL | [facility] | | | | | | [facility] | | | | | | [facility] | | | | | | [facility]ENTER - | | | | | | LABORATORY | | + + + + + + | % | 27.8 | 15.0 - 50.0 % | [facility] [...] + | [facility] | [address] | [place] | [phone] | | [facility] | | [address] | | | - LABORATORY | | | | + + + + + Extra Green Top Tube (12/03/2019 12:07 PM PST) + +-------+ + + + [...] | [address] | [place] | [phone] | | [facility] | | [address] | | | - LABORATORY | | | | + + + + + XR Chest 2 Vws (12/03/2019 9:08 AM PST) + + | Specimen | + + | | + + + + + | Impressions | Performed At | + + + | Stable mild scattered patchy airspace disease of bilateral lungs | [facility] | | with predominance in the upper lobes. Dictated and Signed by: | | | Patrick Rodriguez MD Electronically signed: 12/03/2019 9:35 AM | | + + + + + + | Narrative | Performed At | + + + | XR CHEST 2 VIEWS 12/03/2019 9:08 AM HISTORY: interval change | [facility] | | mucous plug R > L CAP. COMPARISON: Multiple priors. Findings: | | | Heart size is at the upper limits of normal. There is atherosclerosis | | | of the aorta. A stent is noted over the lower aorta. Central | | | pulmonary vasculature is normal. Again visualized are mild scattered | | | patchy airspace disease of the bilateral lungs with predominance in | | | the upper lobes. Appearance is similar compared to the CT scan of | | | 12/01/2019. No pleural effusion or pneumothorax is seen. Degenerative | | | changes are present of the shoulders. There is moderate spondylosis. | | | | | + + + + + | Procedure Note | + + | Kobe, Rad Results In - 12/03/2019 9:38 AM PST XR CHEST 2 VIEWS 12/03/2019 9:08 AM | | | | HISTORY: interval change mucous plug R > L CAP. | | | | COMPARISON: Multiple priors. | | | | Findings: | | Heart size is at the upper limits of normal. There is atherosclerosis of the | | aorta. A stent is noted over the lower aorta. Central pulmonary vasculature is | | normal. Again visualized are mild scattered patchy airspace disease of the | | bilateral lungs with predominance in the upper lobes. Appearance is similar | | compared to the CT scan of 12/01/2019. No pleural effusion or pneumothorax is | | seen. Degenerative changes are present of the shoulders. There is moderate | | spondylosis. | | | | IMPRESSION: | | Stable mild scattered patchy airspace disease of bilateral lungs with | | predominance in the upper lobes. | | | | Dictated and Signed by: Patrick Rodriguez MD | | Electronically signed: 12/03/2019 9:35 AM | + + + +---------+ + + | Performing | Address | City/State/Zipcode | Phone Number | | Organization | | | | + +---------+ + + | [facility] | | | | + +---------+ + + CBC no Differential (12/03/2019 6:29 AM PST) + + + + + + | Component | Value | Ref Range | Performed | Pathologist | | | | | At | Signature | + + + + + + | WBC | 12.3 (H) | 4.0 - 11.0 K/uL | [facility] | | | | [facility] | | | | | | [facility] | | | | | | C[facility] - | | | | | | LABORATORY | | + + + + + + | RBC | 2.56 (L) | 3.70 - 5.20 | [facility] [...] + + + + | RDW-SD | 53.6 (H) | 35.1 - 46.3 fL | [...] [address] | [place] | [phone] | | [facility] | | [address] | | | - LABORATORY | | | | + + + + + Magnesium (12/03/2019 6:29 AM PST) + +-------+ + + + [...] + | [facility] | [address] | [place] | [phone] | | [facility] | | [address] | | | - LABORATORY | | | | + + + + + Basic Metabolic Panel (12/03/2019 6:29 AM PST) + + + + + [...] not | >60Comment: GLOMERULAR | >=60 | [facility] | | | | FILTR[facility] | mL/min/1.73m2 | [facility] | | | MALDIVIAN | RATE,ESTIMATED | | MEDICAL | | | | mL/min/1.40e0Weqm than | | CENTER - | | [...] + | [facility] | [address] | [place] | [phone] | | [facility] | | [address] | | | - LABORATORY | | | | + + + + + B Type Natriuretic Peptide (12/03/2019 6:29 AM PST) + + + + + + | Component | Value | Ref Range | Performed | Pathologist | | | | | At | Signature | + + + + + + | BNP | 975 (H)Comment: New | <100 pg/mL | [facility] | | | | method in use [...] + | [facility] | [address] | [place] | [phone] | | [facility] | | [address] | | | - LABORATORY | | | | + + + + + Magnesium (12/02/2019 5:46 AM PST) + +-------+ + + + [...] + | [facility] | [address] | [place] | [phone] | | [facility] | | [address] | | | - LABORATORY | | | | + + + + + CBC no Differential (12/02/2019 5:46 AM PST) + + + + + [...] + + + + | RBC | 2.70 (L) | 3.70 - 5.20 | [facility] [...] + + + + | Hematocrit | 27.1 (L) | 34.0 - 47.0 % | [facility] | | | | | | [facility] | | | | | | MEDICAL | | | | | | CENTER - | | | | | | LABORATORY | | + + + + + + | MCV | 100.4 | 83.0 - 101.0 fL | [facility] [...] + + + + | RDW-CV | 14.9 | <15.0 % | [facility] | | [...] - 0.01 | [facility] | | | nRBC | | K/uL | [facility] | | | | | | MEDICAL [...] [address] | [place] | [phone] | | [facility] | | [address] | | | - LABORATORY | | | | + + + + + Basic Metabolic Panel (12/02/2019 5:46 AM PST) + + + + + [...] + + + + | Glucose | 135 (H) | 60 - 106 mg/dL | [facility] | | | | [facility] | | | | | [facility] | | | | | | CENTER - | | | | | | LABORATORY | | + + + + + + | BUN | 25 (H) | 9 - 23 mg/dL | [facility] | | | | | | [facility] | | | | | | MEDICAL | | | | | | CENTER - | | | | | | LABORATORY | | + + + + + + | Creatinine | 0.62 | 0.55 - 1.02 | [facility] | | | | | mg/dL | [facility] | | | | | | MEDICAL | | | | | | CENTER - | | | | | | LABORATORY | | + + + + + + | eGFR if not | >60Comment: GLOMERULAR | >=60 | [facility] | | | | FILTRATION | mL/min/1.73m2 | [facility] | | | MALDIV[place] | RATE,ESTIMATED | | MEDICAL | | | | mL/min/1.23r8Qery than | | CENTER - | | [...] + + + + | BUN/Creatin | 40.3 | | [facility] | | | ine [...] + | [facility] | [address] | [place] | [phone] | | [facility] | | [address] | | | - LABORATORY | | | | + + + + + Hemoglobin (12/01/2019 6:22 PM PST) + +---------+ + + + | Component | Value | Ref Range | Performed | Pathologist | | | | | At | Signature | + +---------+ + + + | Hemoglobin | 8.6 [...] [address] | [place] | [phone] | | [facility] | | [address] | | | - LABORATORY | | | | + + + + + Respiratory pathogen panel, NAAT (12/01/2019 5:30 PM PST) + + + + + [...] [address] | [place] | [phone] | | [facility] | | [address] | | | - LABORATORY | | | | + + + + + Hemoglobin and Hematocrit (12/01/2019 12:34 PM PST) + + + + + [...] [address] | [place] | [phone] | | [facility] | | [address] | | | - LABORATORY | | | | + + + + + Culture, Blood (12/01/2019 12:34 PM PST) + + + + + [...] + | [facility] | [address] | [place] | [phone] | | [facility] | | [address] | | | - LABORATORY | | | | + + + + + Culture, Blood (12/01/2019 12:34 PM PST) + + + + + [...] [address] | [place] | [phone] | | [facility] | | [address] | | | - LABORATORY | | | | + + + + + Type and Screen (12/01/2019 11:11 AM PST) + + + + + [...] | + + + + + | [facility] | [address] | [place], [place] | | | [facility] | | [address] | | | - BLOOD BANK | | | | + + + + + CT Chest wo Contrast (12/01/2019 10:54 AM PST) + + | Specimen | + + | | + + + + + | Impressions | Performed At | + + + | 1. MUCOUS PLUGGING WITHIN RIGHT-SIDED AIRWAYS WITH EXTENSIVE | [facility] | | CLUSTERED NODULARITY INVOLVING PORTIONS OF BOTH LUNGS AND PATCHY | | | CONSOLIDATION/GROUND GLASS OPACITY IN THE UPPER LOBES, CONSISTENT | | | WITH MULTIFOCAL LIKELY AIRWAY CENTERED INFECTION. A VERY SMALL | | | RIGHT PLEURAL EFFUSION IS ALSO PRESENT. 2. VASCULAR | | | CALCIFICATION WITH SIMILAR ASCENDING AORTIC DILATION UP TO A DIAMETER | | | OF 4 CM, AND MAIN PULMONARY ARTERY ENLARGEMENT SUGGESTING PULMONARY | | | ARTERIAL HYPERTENSION. 3. CHRONIC BILIARY DUCTAL DILATION. | | | Images were provided for interpretation on December 01, 2019 at 1100 | | | hours. Results were finalized at 1120 hours. Dictated and Signed | | | by: Sivakumar Ramon MD Electronically signed: 12/01/2019 11:21 AM | | + + + + + + | Narrative | Performed At | + + + | UNENHANCED CHEST CT 12/01/2019 10:53 AM CLINICAL HISTORY: | [facility] | | Shortness of breath COMPARISON: Preceding radiography and | | | more remote imaging TECHNIQUE: Axial unenhanced images are | | | performed through the chest, along with multiplanar reformations. | | | FINDINGS: Extensive calcified plaque is again evident in the aorta, | | | proximal great vessels and coronary arteries. An aortic valve | | | prosthesis is present. There is similar dilation of the ascending | | | aorta to a diameter of 4 cm. There is similar dilation of the main | | | pulmonary artery up to a diameter of 3.7 cm. No pathologic lymph | | | node enlargement is evident. There is no pericardial effusion or | | | pneumothorax. A very small dependent low attenuation right pleural | | | effusion is now present. Segmental mucous plugging is suggested | | | within the bronchus intermedius and right middle and lower lobe | | | airways. Extensive tiny clustered nodules are present in the right | | | greater than left lower lobes, with additional involvement of the | | | middle lobe and lingula. Small, ill-defined clustered nodular | | | opacities are also present in the right upper lobe and posterior left | | | upper lobe, with some patchy consolidation/ground glass opacity also | | | apparent in the anterior left upper lobe and more superior right | | | upper lobe. There are degenerative changes of the imaged shoulders | | | and sternoclavicular joints. Osteopenia is suggested. A healing | | | appearing right posterior eighth rib fracture is noted. There is | | | S-shaped thoracic curvature and extensive vertebral spondylosis. | | | The gallbladder is surgically absent and prominent biliary ductal | | | dilation is again demonstrated. Imaged upper abdomen is otherwise | | | unremarkable. | | + + + + + | Procedure Note | + + | Kobe, Rad Results In 12/01/2019 11:24 AM PST UNENHANCED CHEST CT 12/01/2019 10:53 AM | | | | CLINICAL HISTORY: Shortness of breath | | | | COMPARISON: Preceding radiography and more remote imaging | | | | TECHNIQUE: Axial unenhanced images are performed through the chest, along with | | multiplanar reformations. | | | | FINDINGS: Extensive calcified plaque is again evident in the aorta, proximal | | great vessels and coronary arteries. An aortic valve prosthesis is present. | | There is similar dilation of the ascending aorta to a diameter of 4 cm. There | | is similar dilation of the main pulmonary artery up to a diameter of 3.7 cm. No | | pathologic lymph node enlargement is evident. There is no pericardial effusion | | or pneumothorax. | | | | A very small dependent low attenuation right pleural effusion is now present. | | Segmental mucous plugging is suggested within the bronchus intermedius and right | | middle and lower lobe airways. Extensive tiny clustered nodules are present in | | the right greater than left lower lobes, with additional involvement of the | | middle lobe and lingula. Small, ill-defined clustered nodular opacities are | | also present in the right upper lobe and posterior left upper lobe, with some | | patchy consolidation/ground glass opacity also apparent in the anterior left | | upper lobe and more superior right upper lobe. | | | | There are degenerative changes of the imaged shoulders and sternoclavicular | | joints. Osteopenia is suggested. A healing appearing right posterior eighth | | rib fracture is noted. There is S-shaped thoracic curvature and extensive | | vertebral spondylosis. The gallbladder is surgically absent and prominent | | biliary ductal dilation is again demonstrated. Imaged upper abdomen is | | otherwise unremarkable. | | | | IMPRESSION: | | 1. MUCOUS PLUGGING WITHIN RIGHT-SIDED AIRWAYS WITH EXTENSIVE CLUSTERED | | NODULARITY INVOLVING PORTIONS OF BOTH LUNGS AND PATCHY CONSOLIDATION/GROUND | | GLASS OPACITY IN THE UPPER LOBES, CONSISTENT WITH MULTIFOCAL LIKELY AIRWAY | | CENTERED INFECTION. A VERY SMALL RIGHT PLEURAL EFFUSION IS ALSO PRESENT. | | | | 2. VASCULAR CALCIFICATION WITH SIMILAR ASCENDING AORTIC DILATION UP TO A | | DIAMETER OF 4 CM, AND MAIN PULMONARY ARTERY ENLARGEMENT SUGGESTING PULMONARY | | ARTERIAL HYPERTENSION. | | | | 3. CHRONIC BILIARY DUCTAL DILATION. | | | | Images were provided for interpretation on December 01, 2019 at 1100 hours. | | Results were finalized at 1120 hours. | | | | Dictated and Signed by: Sivakumar Ramon MD | | Electronically signed: 12/01/2019 11:21 AM | + + + +---------+ + + | Performing | Address | City/State/Zipcode | Phone Number | | Organization | | | | + +---------+ + + | [facility] | | | | + +---------+ + + B Type Natriuretic Peptide (12/01/2019 10:41 AM PST) + + + + + + | Component | Value | Ref Range | Performed | Pathologist | | | | | At | Signature | + + + + + + | BNP | 719 (H)Comment: New | <100 pg/mL | [facility] [...] + | [facility] | [address] | [place] | [phone] | | [facility] | | [address] | | | - LABORATORY | | | | + + + + + Protime INR (12/01/2019 10:41 AM PST) + + + + + + | Component | Value | Ref Range | Performed | Pathologist | | | | | At | Signature | + + + + + + | Prothrombin | 13.8 | 11.3 - 13.9 | [facility] | | | Time | | seconds | [facility] | | | | | | MEDICAL | | | | | | CENTER - | | | | | | LABORATORY | | + + + + + + | INR | 1.1Comment: Usual Oral | 0.9 - 1.1 | [facility] | | | | Anticoagulation Range: | | [facility] | | | | 2.0 - [...] [address] | [place] | [phone] | | [facility] | | [address] | | | - LABORATORY | | | | + + + + + Troponin I (12/01/2019 10:41 AM PST) + + + + + + | Component | Value | Ref Range | Performed | Pathologist | | | | | At | Signature | + + + + + + | Troponin I | 0.02Comment: | <0.06 ng/mL | [facility] | | [...] [address] | [place] | [phone] | | [facility] | | [address] | | | - LABORATORY | | | | + + + + + Comprehensive Metabolic Panel (12/01/2019 10:41 AM PST) + + + + + [...] + + + + | Glucose | 114 (H) | 60 - 106 mg/dL | [facility] | | | | | | [facility] | | | | | | [facility] | | | | | | CENTER - | | | | | | LABORATORY | | + + + + + + | BUN | 28 (H) | 9 - 23 mg/dL | [facility] | | | | | | [facility] | | | | | | MEDICAL | | | | | | CENTER - | | | | | | LABORATORY | | + + + + + + | Creatinine | 0.70 | 0.55 - 1.02 | [facility] | | | | | [...] mL/min/1.73m2 | [facility] | | | [place] | RATE,ESTIMATED | | MEDICAL | | | | mL/min/1.60f7Reyn than | | CENTER - | | [...] + + + + | ALT | 20 | 10 - 49 U/L | [facility] | | | | | | [facility] | | | | | | MEDICAL | | | | | | CENTER - | | | | | | LABORATORY | | + + + + + + | Alkaline | 111 | 46 - 116 U/L | [facility] [...] [address] | [place] | [phone] | | [facility] | | [address] | | | - LABORATORY | | | | + + + + + CBC with Differential (12/01/2019 10:41 AM PST) + + + + + + | Component | Value | Ref Range | Performed | Pathologist | | | | | At | Signature | + + + + + + | WBC | 11.2 (H) | 4.0 - 11.0 K/uL | [facility] | | | | | | [facility] | | | | | | [facility] | | | | | | CENTER - | | | | | | LABORATORY | | + + + + + + | RBC | 2.48 (L) | 3.70 - 5.20 | [facility] [...] | Critical Result called | g/dL | [facility] | | | | to and read back by | | MEDICAL | | | | Raymon Daniel MD on | | CENTER - | | | | 12/01/2019 at 10:55 AM by | | LABORATORY | | | | Ty Fide. | | | | + + + + + + | Hematocrit | 25.4 (L) | 34.0 - 47.0 % | [facility] | | | | | | [facility] | | | | | | MEDICAL | | | | | | CENTER - | | | | | | LABORATORY | | + + + + + + | MCV | 102.4 (H) | 83.0 - 101.0 fL | [facility] [...] + + + + | RDW-CV | 15.4 (H) | <15.0 % | [facility] | | | | | | [facility] | | | | | | MEDICAL | | | | | | CENTER - | | | | | | LABORATORY | | + + + + + + | RDW-SD | 57.6 (H) | 35.1 - 46.3 fL | [...] | | Neutrophils | | | [facility] | | | | | | MEDICAL | | | | | | CENTER - | | | | | | LABORATORY | | + + + + + + | % | 6.2 (L) | 20.0 - 45.0 % | [facility] | | | Lymphocytes | | | [facility] | | [...] + + + + | Absolute | 9.58 (H) | 1.80 - 8.50 | [facility] | | | Neutrophils | | K/uL | [facility] | | | | | | MEDICAL | | | | | | CENTER - | | | | | | LABORATORY | | + + + + + + | Absolute | 0.70 | 0.60 - 3.20 | [facility] | | | Lymphocytes | | K/uL | [facility] | | | | | | MEDICAL | | | | | | CENTER - | | | | | | LABORATORY | | + + + + + + | Absolute | 0.86 | 0.00 - 1.00 | [facility] | | | Monocytes | | K/uL | [facility] | | | | | | MEDICAL | | | | | | CENTER - | | | | | | LABORATORY | | + + + + + + | Absolute | 0.05 | 0.00 - 0.40 | [facility] | [...] [address] | [place] | [phone] | | [facility] | | [address] | | | - LABORATORY | | | | + + + + + ECG 12 lead (12/01/2019 10:32 AM PST) + + + + + [...] + + + + | P-R | 128 | ms | [facility] | | | INTERVAL | | | | | + + + + + + | QRS | 80 | ms | [facility] | | | DURATION | | | | | + + + + + + | Q-T | 340 | ms | [facility] | | | INTERVAL | | | | | + + + + + + | Q-T | 406 | ms | [facility] | | | INTERVAL | | | | | | (CORRECTED) | | | | | + + + + + + | P WAVE AXIS | 55 | degrees | [facility] | | + + + + + + | QRS AXIS | 60 | degrees | [facility] | | + + + + + + | T AXIS | 76 | degrees | [facility] | | + + + + + + | INTERPRETAT | Normal sinus rhythm with | | [facility] | | | ION TEXT | sinus arrhythmiaNormal | | | | | | ECGWhen compared with | | | | | | ECG of 23-NOV-2019 | | | | | | 08:50,No significant | | | | | | change was | | | | | | foundConfirmed by | | | | | | LEONIDAS CALVO MD ([id number]) | | | | | | on 12/02/2019 7:33:08 AM | | | | + + [...] +---------+ + + XR Chest AP Portable (12/01/2019 10:32 AM PST) + + | Specimen | + + | | + + + + + | Impressions | Performed At | + + + | Findings suggest pulmonary venous congestion. Prominent | [facility] | | pulmonary arteries can indicate pulmonary hypertension. Dictated | | | and Signed by: Edwin Jarrell MD Electronically signed: 12/01/2019 | | | 10:55 AM | | + + + + + + | Narrative | Performed At | + + + | EXAM: XR CHEST AP PORTABLE dated 12/01/2019 10:32 AM HISTORY: SOB | [facility] | | Comparison: 11/23/2019 and 09/06/2019 TECHNIQUE: A single | | | portable view of the chest. FINDINGS: The lungs are | | | symmetrically aerated. Prominence of the pulmonary vasculature. No | | | consolidation. There are no large pleural effusions. There is no | | | pneumothorax. The cardiac and mediastinal contours are stable. | | | Enlarged central pulmonary arteries. Findings consistent with | | | aortic valvular repair. No acute osseous abnormalities. | | + + + + + | Procedure Note | + + | Kobe, Rad Results In - 12/01/2019 10:58 AM PST EXAM: XR CHEST AP PORTABLE dated | | 12/01/2019 10:32 AMHISTORY: SOBComparison: 11/23/2019 and 09/06/2019TECHNIQUE: A single | | portable view of the chest.FINDINGS:The lungs are symmetrically aerated. Prominence of | | the pulmonary vasculature. No consolidation. There are no large pleural effusions. | | There is nopneumothorax. The cardiac and mediastinal contours are stable. | | Enlargedcentral pulmonary arteries. Findings consistent with aortic valvular repair. No | | acute osseous abnormalities. IMPRESSION: Findings suggest pulmonary venous | | congestion.Prominent pulmonary arteries can indicate pulmonary hypertension.Dictated and | | Signed by: Edwin Jarrell MD Electronically signed: 12/01/2019 10:55 AM | | | |The lungs are symmetrically aerated. Prominence of the pulmonary vasculature. | |No consolidation. There are no large pleural effusions. There is no | |pneumothorax. The cardiac and mediastinal contours are stable. Enlarged | |central pulmonary arteries. Findings consistent with aortic valvular repair. | |No acute osseous abnormalities. | | | |IMPRESSION: | | | |Findings suggest pulmonary venous congestion. | | | |Prominent pulmonary arteries can indicate pulmonary hypertension. | | | |Dictated and Signed by: Edwin Jarrell MD | | Electronically signed: 12/01/2019 10:55 AM | + + + +---------+ + + | Performing | Address | City/State/Zipcode | Phone Number | | Organization | | | | + +---------+ + + | [facility] | | | | + +---------+ + + Procalcitonin (12/01/2019 10:21 AM PST) + + + + + + | Component | Value | Ref Range | Performed | Pathologist | | | | | At | Signature | + + + + + + | Procalciton | 0.07 | <=0.50 ng/mL | [facility] | | [...] + | [facility] | [address] | [place] | [phone] | | [facility] | | [address] | | | - LABORATORY | | | | + + + + + documented in this encounter Visit Diagnoses + + | Diagnosis | + + | Anemia requiring transfusions Anemia, unspecified | + + | COPD with acute exacerbation (HCC) Obstructive chronic bronchitis with exacerbation | + + | Multifocal pneumonia | + + | Impaired mobility Other ill-defined conditions | + + | Hypoxemia | + + | Centrilobular emphysema (HCC) | + + | Moderate protein-calorie malnutrition (HCC) Malnutrition of moderate degree | + + | Pneumonia due to methicillin resistant Staphylococcus aureus, unspecified laterality, | | unspecified part of lung (HCC) | + + | Coronary artery disease involving [place] coronary artery of [place] heart without | | angina pectoris | + + | COPD (chronic obstructive pulmonary disease) (HCC) Chronic airway obstruction, not | | elsewhere classified | + + | Pressure injury of sacral region, stage 3 (HCC) | + + documented in this encounter Administered Medications + +--------+ +-------+------+------+ | Medication Order | MAR | Action | Dose | Rate | Site | | | Action | Date | | | | + +--------+ +-------+------+------+ | albuterol 5 mg/mL concentrated | Given | 12/06/19 | 10 mg | | | | nebulizer solution 10 mg 10 mg, | | 20 4:12 | | | | | Nebulization, RT Once, 12/06/19 | | AM PST | | | | | at 0415, For 1 dose, This is per | | | | | | | nebulizer, | | | | | | + +--------+ +-------+------+------+ +---+---+ | | | +---+---+ + +-------+ +-------+---+---+ | albuterol-ipratropium 2.5-0.5 | Given | 12/01/19 | 3 mLs | | | | mg/3 mL nebulizer solution 3 mL | | 20 10:18 | | | | | 3 mL, Nebulization, RT Once, Wed | | AM PST | | | | | 12/01/19 at 1015, For 1 dose | | | | | | + +-------+ +-------+---+---+ +---+---+ | | | +---+---+ + +-------+ +-------+---+---+ | albuterol-ipratropium 2.5-0.5 | Given | 12/01/19 | 3 mLs | | | | mg/3 mL nebulizer solution 3 mL | | 20 4:31 | | | | | 3 mL, Nebulization, RT Q6H, First | | PM PST | | | | | dose on Fri12/01/19 at 1615, | | | | | | | Call md for xopenex if | | | | | | | tachycardic HR > 95 for prolonged | | | | | | | time > 10 min, | | | | | | + +-------+ +-------+---+---+ +---+---+ | | | +---+---+ + +-------+ +-------+---+---+ | albuterol-ipratropium 2.5-0.5 | Given | 12/01/19 | 3 mLs | | | | mg/3 mL nebulizer solution 3 mL | | 20 8:29 | | | | | 3 mL, Nebulization, RT Q4H, First | | PM PST | | | | | dose (after last modification) | | | | | | | on Fri12/01/19 at 1999, Call md | | | | | | | for xopenex if tachycardic HR > | | | | | | | 95 for prolonged time > 10 min, | | | | | | + +-------+ +-------+---+---+ +---+---+ | | | +---+---+ + +-------+ +-------+---+---+ | albuterol-ipratropium 2.5-0.5 | Given | 12/10/19 | 3 mLs | | | | mg/3 mL nebulizer solution 3 mL | | 20 11:58 | | | | | 3 mL, Nebulization, RT 4X DAILY, | | AM PST | | | | | First dose (after last | | | | | | | modification) on [facility] 12/02/19 at | | | | | | | 0800, Call md for xopenex if | | | | | | | tachycardic HR > 95 for prolonged | | | | | | | time > 10 min, | | | | | | + +-------+ +-------+---+---+ +-------+ +-------+---+---+ | Given | 12/10/19 | 3 mLs | | | | | 20 7:08 | | | | | | AM PST | | | | +-------+ +-------+---+---+ | Given | 12/09/19 | 3 mLs | | | | | 20 8:18 | | | | | | PM PST | | | | +-------+ +-------+---+---+ +---+---+ | | | +---+---+ + +-------+ +-------+---+---+ | albuterol-ipratropium 2.5-0.5 | Given | 12/06/19 | 3 mLs | | | | mg/3 mL nebulizer solution 3 mL | | 20 3:23 | | | | | 3 mL, Nebulization, RT Once, Mon | | AM PST | | | | | 12/06/19 at 0345, For 1 dose | | | | | | + +-------+ +-------+---+---+ +---+---+ | | | +---+---+ + +-------+ +--------+---+---+ | aluminum & magnesium | Given | 12/04/19 | 30 mLs | | | | hydroxide-simethicone (MAALOX | | 20 3:49 | | | | | PLUS REGULAR STRENGTH) 200-200-20 | | PM PST | | | | | mg/5 mL suspension 30 mL 30 mL, | | | | | | | Oral, ONCE PRN, Indigestion, | | | | | | | Pain, Starting 12/04/19 at | | | | | | | 1529, For 1 dose, Mix lidocaine | | | | | | | and Maalox. Shake well., | | | | | | + +-------+ +--------+---+---+ +---+---+ | | | +---+---+ + +-------+ +-------+---+---+ | aspirin chewable tablet 81 mg | Given | 12/02/19 | 81 mg | | | | 81 mg, Oral, DAILY, First dose on | | 20 9:08 | | | | | [facility] 12/02/19 at 0900, Hold if Hg | | AM PST | | | | | is less than 9.2, | | | | | | + +-------+ +-------+---+---+ +---+---+ | | | +---+---+ + +-------+ +-------+---+---+ | aspirin chewable tablet 81 mg | Given | 12/10/19 | 81 mg | | | | 81 mg, Oral, DAILY, First dose on | | 20 8:24 | | | | | 12/04/19 at 0900 | | AM PST | | | | + +-------+ +-------+---+---+ +-------+ +-------+---+---+ | Given | 12/09/19 | 81 mg | | | | | 20 8:10 | | | | | | AM PST | | | | +-------+ +-------+---+---+ | Given | 12/08/19 | 81 mg | | | | | 20 10:29 | | | | | | AM PST | | | | +-------+ +-------+---+---+ +---+---+ | | | +---+---+ + +-------+ +-------+---+---+ | atorvaSTATin (LIPITOR) tablet | Given | 12/10/19 | 20 mg | | | | 20 mg 20 mg, Oral, EVERY | | 20 8:23 | | | | | MORNING, First dose on Fri | | AM PST | | | | | 12/02/19 at 0900 | | | | | | + +-------+ +-------+---+---+ +-------+ +-------+---+---+ | Given | 12/09/19 | 20 mg | | | | | 20 8:10 | | | | | | AM PST | | | | +-------+ +-------+---+---+ | Given | 12/08/19 | 20 mg | | | | | 20 10:27 | | | | | | AM PST | | | | +-------+ +-------+---+---+ +---+---+ | | | +---+---+ + +-------+ +-------+---+---+ | bisacodyl (DULCOLAX) | Given | 12/08/19 | 10 mg | | | | suppository 10 mg 10 mg, Rectal, | | 20 3:39 | | | | | DAILY PRN, Constipation, | | PM PST | | | | | Starting 12/05/19 at 1020 | | | | | | + +-------+ +-------+---+---+ +-------+ +-------+---+---+ | Given | 12/05/19 | 10 mg | | | | | 20 10:52 | | | | | | AM PST | | | | +-------+ +-------+---+---+ +---+---+ | | | +---+---+ + +-------+ +--------+---+---+ | brimonidine (ALPHAGAN) 0.2% | Given | 12/10/19 | 1 drop | | | | ophthalmic solution 1 drop 1 | | 20 8:27 | | | | | drop, Both Eyes, 2 TIMES DAILY, | | AM PST | | | | | First dose on Fri12/01/19 at 2100 | | | | | | + +-------+ +--------+---+---+ +-------+ +--------+---+---+ | Given | 12/09/19 | 1 drop | | | | | 20 8:33 | | | | | | PM PST | | | | +-------+ +--------+---+---+ | Given | 12/09/19 | 1 drop | | | | | 20 8:12 | | | | | | AM PST | | | | +-------+ +--------+---+---+ +---+---+ | | | +---+---+ + +-------+ +--------+---+---+ | budesonide (PULMICORT) | Given | 12/02/19 | 0.5 mg | | | | nebulizer solution 0.5 mg 0.5 | | 20 7:52 | | | | | mg, Nebulization, RT BID, First | | AM PST | | | | | dose on Fri12/01/19 at 2000 | | | | | | + +-------+ +--------+---+---+ +-------+ +--------+---+---+ | Given | 12/01/19 | 0.5 mg | | | | | 20 8:28 | | | | | | PM PST | | | | +-------+ +--------+---+---+ +---+---+ | | | +---+---+ + +-------+ +--------+---+---+ | budesonide (PULMICORT) | Given | 12/10/19 | 0.5 mg | | | | nebulizer solution 0.5 mg 0.5 | | 20 7:09 | | | | | mg, Nebulization, RT BID, First | | AM PST | | | | | dose on [facility] 12/02/19 at 2100, RT | | | | | | | will administer. Shake well. | | | | | | | Protect from light. Rinse mouth | | | | | | | after use., | | | | | | + +-------+ +--------+---+---+ +-------+ +--------+---+---+ | Given | 12/09/19 | 0.5 mg | | | | | 20 8:18 | | | | | | PM PST | | | | +-------+ +--------+---+---+ | Given | 12/09/19 | 0.5 mg | | | | | 20 7:30 | | | | | | AM PST | | | | +-------+ +--------+---+---+ +---+---+ | | | +---+---+ + +-------+ + +---+---+ | calcium carbonate (TUMS) | Given | 12/04/19 | 1,000 mg | | | | chewable tablet 1,000 mg 1,000 | | 20 1:21 | | | | | mg, Oral, EVERY 8 HOURS PRN, | | PM PST | | | | | Indigestion, Heartburn, Starting | | | | | | | Fri12/01/19 at 1557 | | | | | | + +-------+ + +---+---+ +---+---+ | | | +---+---+ + +-------+ +---------+---+---+ | carvedilol (COREG) tablet 6.25 | Given | 12/10/19 | 6.25 mg | | | | mg 6.25 mg, Oral, 2 TIMES DAILY | | 20 8:23 | | | | | WITH BREAKFAST & DINNER, First | | AM PST | | | | | dose on Fri12/01/19 at 1700, Hold | | | | | | | SBP less than 150. Hold HR less | | | | | | | than 60, | | | | | | + +-------+ +---------+---+---+ +-------+ +---------+---+---+ | Given | 12/09/19 | 6.25 mg | | | | | 20 4:01 | | | | | | PM PST | | | | +-------+ +---------+---+---+ | Given | 12/09/19 | 6.25 mg | | | | | 20 8:10 | | | | | | AM PST | | | | +-------+ +---------+---+---+ +---+---+ | | | +---+---+ + +-------+ +--------+---+---+ | docusate sodium (COLACE) | Given | 12/10/19 | 500 mg | | | | capsule 500 mg 500 mg, Oral, | | 20 8:22 | | | | | EVERY MORNING, First dose on Fri | | AM PST | | | | | 12/01/19 at 1615 | | | | | | + +-------+ +--------+---+---+ +-------+ +--------+---+---+ | Given | 12/09/19 | 500 mg | | | | | 20 8:10 | | | | | | AM PST | | | | +-------+ +--------+---+---+ | Given | 12/08/19 | 500 mg | | | | | 20 10:27 | | | | | | AM PST | | | | +-------+ +--------+---+---+ +---+---+ | | | +---+---+ + +-------+ +--------+---+---+ | dorzolamide (TRUSOPT) 2% | Given | 12/10/19 | 1 drop | | | | ophthalmic solution 1 drop 1 | | 20 8:27 | | | | | drop, Both Eyes, 2 TIMES DAILY, | | AM PST | | | | | First dose on Fri12/01/19 at 2100 | | | | | | + +-------+ +--------+---+---+ +-------+ +--------+---+---+ | Given | 12/09/19 | 1 drop | | | | | 20 8:33 | | | | | | PM PST | | | | +-------+ +--------+---+---+ | Given | 12/09/19 | 1 drop | | | | | 20 8:12 | | | | | | AM PST | | | | +-------+ +--------+---+---+ +---+---+ | | | +---+---+ + +-------+ +--------+---+---+ | doxycycline (VIBRAMYCIN) tablet | Given | 12/10/19 | 100 mg | | | | 100 mg 100 mg, Oral, 2 TIMES | | 20 8:23 | | | | | DAILY, First dose on Fri12/09/19 | | AM PST | | | | | at 0900, May take with food to | | | | | | | avoid GI upset. Administer with | | | | | | | at least 8 ounces of water and | | | | | | | have patient sit up for at least | | | | | | | 30 minutes., Indications: | | | | | | | Staphylococcal Pneumonia | | | | | | + +-------+ +--------+---+---+ +-------+ +--------+---+---+ | Given | 12/09/19 | 100 mg | | | | | 20 8:29 | | | | | | PM PST | | | | +-------+ +--------+---+---+ | Given | 12/09/19 | 100 mg | | | | | 20 8:10 | | | | | | AM PST | | | | +-------+ +--------+---+---+ +---+---+ | | | +---+---+ + +-------+ +-------+---+---+ | escitalopram (LEXAPRO) tablet | Given | 12/10/19 | 10 mg | | | | 10 mg 10 mg, Oral, DAILY, First | | 20 8:24 | | | | | dose on 12/01/19 at 1615 | | AM PST | | | | + +-------+ +-------+---+---+ +-------+ +-------+---+---+ | Given | 12/09/19 | 10 mg | | | | | 20 8:11 | | | | | | AM PST | | | | +-------+ +-------+---+---+ | Given | 12/08/19 | 10 mg | | | | | 20 10:28 | | | | | | AM PST | | | | +-------+ +-------+---+---+ +---+---+ | | | +---+---+ + +-------+ +-------+---+---+ | famotidine (PEPCID) tablet 20 | Given | 12/09/19 | 20 mg | | | | mg 20 mg, Oral, NIGHTLY, First | | 20 8:29 | | | | | dose (after last modification) on | | PM PST | | | | | 12/03/19 at 2100 | | | | | | + +-------+ +-------+---+---+ +-------+ +-------+---+---+ | Given | 12/08/19 | 20 mg | | | | | 20 8:22 | | | | | | PM PST | | | | +-------+ +-------+---+---+ | Given | 12/07/19 | 20 mg | | | | | 20 9:08 | | | | | | PM PST | | | | +-------+ +-------+---+---+ +---+---+ | | | +---+---+ + +-------+ +-------+---+---+ | famotidine (PEPCID) tablet 40 | Given | 12/02/19 | 40 mg | | | | mg 40 mg, Oral, NIGHTLY, First | | 20 8:30 | | | | | dose on Fri12/01/19 at 2100 | | PM PST | | | | + +-------+ +-------+---+---+ +-------+ +-------+---+---+ | Given | 12/01/19 | 40 mg | | | | | 20 9:16 | | | | | | PM PST | | | | +-------+ +-------+---+---+ +---+---+ | | | +---+---+ + +-------+ +--------+---+---+ | ferrous sulfate tablet 325 mg | Given | 12/10/19 | 325 mg | | | | 325 mg, Oral, DAILY WITH | | 20 8:23 | | | | | BREAKFAST, First dose on Fri | | AM PST | | | | | 12/02/19 at 0800 | | | | | | + +-------+ +--------+---+---+ +-------+ +--------+---+---+ | Given | 12/09/19 | 325 mg | | | | | 20 8:11 | | | | | | AM PST | | | | +-------+ +--------+---+---+ | Given | 12/08/19 | 325 mg | | | | | 20 10:28 | | | | | | AM PST | | | | +-------+ +--------+---+---+ +---+---+ | | | +---+---+ + +-------+ +-------+---+---+ | furosemide (LASIX) tablet 20 mg | Given | 12/06/19 | 20 mg | | | | 20 mg, Oral, 2 TIMES DAILY 0800 | | 20 5:04 | | | | | & 1800, First dose on Wed | | PM PST | | | | | 12/01/19 at 1800 | | | | | | + +-------+ +-------+---+---+ +-------+ +-------+---+---+ | Given | 12/06/19 | 20 mg | | | | | 20 8:37 | | | | | | AM PST | | | | +-------+ +-------+---+---+ | Given | 12/05/19 | 20 mg | | | | | 20 5:46 | | | | | | PM PST | | | | +-------+ +-------+---+---+ +---+---+ | | | +---+---+ + +-------+ +-------+---+---+ | furosemide (LASIX) tablet 20 mg | Given | 12/10/19 | 20 mg | | | | 20 mg, Oral, DAILY, First dose | | 20 8:24 | | | | | on [facility] 12/09/19 at 1045 | | AM PST | | | | + +-------+ +-------+---+---+ +-------+ +-------+---+---+ | Given | 12/09/19 | 20 mg | | | | | 20 11:13 | | | | | | AM PST | | | | +-------+ +-------+---+---+ +---+---+ | | | +---+---+ + +-------+ +--------+---+---+ | guaiFENesin (MUCINEX) ER tablet | Given | 12/10/19 | 600 mg | | | | 600 mg 600 mg, Oral, 2 TIMES | | 20 8:23 | | | | | DAILY, First dose on Fri12/01/19 | | AM PST | | | | | at 1335, Do not cut or crush. | | | | | | | Take with a full glass of water., | | | | | | | | | | | | | + +-------+ +--------+---+---+ +-------+ +--------+---+---+ | Given | 12/09/19 | 600 mg | | | | | 20 8:28 | | | | | | PM PST | | | | +-------+ +--------+---+---+ | Given | 12/09/19 | 600 mg | | | | | 20 8:10 | | | | | | AM PST | | | | +-------+ +--------+---+---+ +---+---+ | | | +---+---+ + +-------+ + +---+---+ | HYDROcodone-acetaminophen | Given | 12/01/19 | 1 tablet | | | | (NORCO) 7.5-325 mg per tablet 1 | | 20 1:23 | | | | | tablet 1 tablet, Oral, ONCE, Fri | | PM PST | | | | | 12/01/19 at 1225, For 1 dose | | | | | | + +-------+ + +---+---+ +---+---+ | | | +---+---+ + +-------+ + +---+---+ | HYDROcodone-acetaminophen | Given | 12/10/19 | 1 tablet | | | | (NORCO) 7.5-325 mg per tablet 1 | | 20 8:24 | | | | | tablet 1 tablet, Oral, EVERY 6 | | AM PST | | | | | HOURS PRN, Pain, Starting Wed | | | | | | | 12/01/19 at 1557 | | | | | | + +-------+ + +---+---+ +-------+ + +---+---+ | Given | 12/09/19 | 1 tablet | | | | | 20 3:58 | | | | | | PM PST | | | | +-------+ + +---+---+ | Given | 12/09/19 | 1 tablet | | | | | 20 8:20 | | | | | | AM PST | | | | +-------+ + +---+---+ +---+---+ | | | +---+---+ + +-------+ +---------+---+---+ | lactobacillus GG-inulin | Given | 12/09/19 | 1 | | | | (CULTURELLE) capsule 1 capsule 1 | | 20 8:29 | capsule | | | | capsule, Oral, 2 TIMES DAILY, | | PM PST | | | | | First dose on Fri12/03/19 at | | | | | | | 2100, For 13 doses, Probiotics | | | | | | | added by pharmacy per [facility] | | | | | | | protocol Do not open or crush., | | | | | | + +-------+ +---------+---+---+ +-------+ +---------+---+---+ | Given | 12/09/19 | 1 | | | | | 20 8:10 | capsule | | | | | AM PST | | | | +-------+ +---------+---+---+ | Given | 12/08/19 | 1 | | | | | 20 8:22 | capsule | | | | | PM PST | | | | +-------+ +---------+---+---+ +---+---+ | | | +---+---+ + +-------+ +--------+---+---+ | latanoprost (XALATAN) 0.005% | Given | 12/09/19 | 1 drop | | | | ophthalmic solution 1 drop 1 | | 20 8:33 | | | | | drop, Both Eyes, NIGHTLY, First | | PM PST | | | | | dose on Fri12/01/19 at 2100 | | | | | | + +-------+ +--------+---+---+ +-------+ +--------+---+---+ | Given | 12/08/19 | 1 drop | | | | | 20 8:27 | | | | | | PM PST | | | | +-------+ +--------+---+---+ | Given | 12/07/19 | 1 drop | | | | | 20 9:08 | | | | | | PM PST | | | | +-------+ +--------+---+---+ +---+---+ | | | +---+---+ + +-------+ +---------+---+---+ | levalbuterol (XOPENEX) 1.25 | Given | 12/10/19 | 1.25 mg | | | | mg/3 mL nebulizer solution 1.25 | | 20 10:25 | | | | | mg 1.25 mg, Nebulization, RT | | AM PST | | | | | EVERY 4 HOURS PRN, Shortness of | | | | | | | Breath, Starting 12/01/19 at | | | | | | | 1641 | | | | | | + +-------+ +---------+---+---+ +-------+ +---------+---+---+ | Given | 12/10/19 | 1.25 mg | | | | | 20 7:08 | | | | | | AM PST | | | | +-------+ +---------+---+---+ | Given | 12/06/19 | 1.25 mg | | | | | 20 11:38 | | | | | | AM PST | | | | +-------+ +---------+---+---+ +---+---+ | | | +---+---+ + +-------+ +--------+---+---+ | levoFLOXacin (LEVAQUIN) tablet | Given | 12/02/19 | 750 mg | | | | 750 mg 750 mg, Oral, DAILY, | | 20 3:39 | | | | | First dose on [facility] 12/02/19 at | | PM PST | | | | | 1430, Give 2 hours before or 2 | | | | | | | hours after antacids, iron, or | | | | | | | zinc., Indications: cap | | | | | | + +-------+ +--------+---+---+ +---+---+ | | | +---+---+ + +-------+ +--------+---+---+ | levoFLOXacin (LEVAQUIN) tablet | Given | 12/04/19 | 750 mg | | | | 750 mg 750 mg, Oral, EVERY OTHER | | 20 1:11 | | | | | DAY, First dose (after last | | PM PST | | | | | modification) on [facility] 12/04/19 at | | | | | | | 1200, Give 2 hours before or 2 | | | | | | | hours after antacids, iron, or | | | | | | | zinc., Indications: cap | | | | | | + +-------+ +--------+---+---+ +---+---+ | | | +---+---+ + +---------+ +--------+-------+---+ | levoFLOXacin in dextrose | New Bag | 12/01/19 | 750 mg | 100 | | | (LEVAQUIN) IVPB 750 mg 750 mg, | | 20 12:45 | | mL/hr | | | Intravenous, Administer over 90 | | PM PST | | | | | Minutes, ONCE, 12/01/19 at | | | | | | | 1205, For 1 dose, Indications: | | | | | | | Bacteremia, Community Acquired | | | | | | | Pneumonia | | | | | | + +---------+ +--------+-------+---+ +---+---+ | | | +---+---+ + +-------+ +--------+---+---+ | lidocaine (XYLOCAINE) 2% | Given | 12/04/19 | 10 mLs | | | | viscous solution 10 mL 10 mL, | | 20 3:49 | | | | | Oral, ONCE PRN, Pain, Starting | | PM PST | | | | | 12/04/19 at 1529, For 1 dose, | | | | | | | Mix lidocaine and MAALOX. Shake | | | | | | | well., | | | | | | + +-------+ +--------+---+---+ +---+---+ | | | +---+---+ + +---------+ +-----+ +---+ | magnesium sulfate 2 g/50 mL | New Bag | 12/05/19 | 2 g | 25 mL/hr | | | IVPB 2 g 2 g, Intravenous, | | 20 8:09 | | | | | Administer over 120 Minutes, | | AM PST | | | | | ONCE, 12/05/19 at 0800, For 1 | | | | | | | dose, Maximum recommended | | | | | | | infusion rate = 1 gram/hour., | | | | | | + +---------+ +-----+ +---+ +---+---+ | | | +---+---+ + +-------+ +-------+---+---+ | methylPREDNISolone sodium | Given | 12/04/19 | 40 mg | | | | succinate (solu-MEDROL) 40 mg/mL | | 20 8:43 | | | | | injection 40 mg 40 mg, | | AM PST | | | | | Intravenous, 2 TIMES DAILY, First | | | | | | | dose (after last modification) | | | | | | | on 12/03/19 at 2100, Mix with | | | | | | | 1 mL provided diluent to make 40 | | | | | | | mg/mL., | | | | | | + +-------+ +-------+---+---+ +-------+ +-------+---+---+ | Given | 12/03/19 | 40 mg | | | | | 20 10:12 | | | | | | PM PST | | | | +-------+ +-------+---+---+ +---+---+ | | | +---+---+ + +-------+ +-------+---+---+ | methylPREDNISolone sodium | Given | 12/02/19 | 60 mg | | | | succinate (solu-MEDROL) 40 mg/mL | | 20 9:10 | | | | | injection 60 mg 60 mg, | | AM PST | | | | | Intravenous, EVERY 8 HOURS | | | | | | | INTERVAL, First dose on Fri | | | | | | | 12/01/19 at 1800, Mix with 1 mL | | | | | | | provided diluent to make 40 | | | | | | | mg/mL., | | | | | | + +-------+ +-------+---+---+ +-------+ +-------+---+---+ | Given | 12/02/19 | 60 mg | | | | | 20 3:01 | | | | | | AM PST | | | | +-------+ +-------+---+---+ | Given | 12/01/19 | 60 mg | | | | | 20 5:19 | | | | | | PM PST | | | | +-------+ +-------+---+---+ +---+---+ | | | +---+---+ + +-------+ +--------+---+---+ | methylPREDNISolone sodium | Given | 12/01/19 | 125 mg | | | | succinate (solu-MEDROL) 62.5 | | 20 10:41 | | | | | mg/mL injection 125 mg 125 mg, | | AM PST | | | | | Intravenous, ONCE, 12/01/19 at | | | | | | | 1015, For 1 dose, Mix with 2 mL | | | | | | | provided diluent to make 62.5 | | | | | | | mg/mL., | | | | | | + +-------+ +--------+---+---+ +---+---+ | | | +---+---+ + +-------+ +-------+---+---+ | metoprolol succinate | Given | 12/09/19 | 25 mg | | | | (TOPROL-XL) ER tablet 25 mg 25 | | 20 8:28 | | | | | mg, Oral, NIGHTLY, First dose on | | PM PST | | | | | 12/01/19 at 2100, Hold SBP | | | | | | | less than 120. Hold heart rate | | | | | | | less than 60 Tablet may be cut | | | | | | | where scored but do not crush., | | | | | | + +-------+ +-------+---+---+ +-------+ +-------+---+---+ | Given | 12/08/19 | 25 mg | | | | | 20 8:25 | | | | | | PM PST | | | | +-------+ +-------+---+---+ | Given | 12/07/19 | 25 mg | | | | | 20 9:07 | | | | | | PM PST | | | | +-------+ +-------+---+---+ +---+---+ | | | +---+---+ + +-------+ +------+---+---+ | ondansetron (ZOFRAN ODT) | Given | 12/03/19 | 4 mg | | | | disintegrating tablet 4 mg 4 mg, | | 20 12:09 | | | | | Oral, EVERY 6 HOURS PRN, Nausea, | | PM PST | | | | | Starting 12/01/19 at 1557 | | | | | | + +-------+ +------+---+---+ +---+---+ | | | +---+---+ + +-------+ +------+---+---+ | ondansetron (ZOFRAN) injection | Given | 12/01/19 | 4 mg | | | | 4 mg 4 mg, Intravenous, ONCE, | | 20 1:24 | | | | | 12/01/19 at 1320, For 1 dose | | PM PST | | | | + +-------+ +------+---+---+ +---+---+ | | | +---+---+ + +-------+ +------+---+---+ | oxybutynin (DITROPAN XL) ER | Given | 12/07/19 | 5 mg | | | | tablet 5 mg 5 mg, Oral, 2 TIMES | | 20 9:35 | | | | | DAILY, First dose on [facility] 12/02/19 | | AM PST | | | | | at 0900, Hold for PVR greater | | | | | | | than 400 cc., | | | | | | + +-------+ +------+---+---+ +-------+ +------+---+---+ | Given | 12/06/19 | 5 mg | | | | | 20 9:42 | | | | | | PM PST | | | | +-------+ +------+---+---+ | Given | 12/06/19 | 5 mg | | | | | 20 8:38 | | | | | | AM PST | | | | +-------+ +------+---+---+ +---+---+ | | | +---+---+ + +-------+ +-------+---+---+ | pantoprazole (PROTONIX) DR | Given | 12/10/19 | 40 mg | | | | tablet 40 mg 40 mg, Oral, DAILY | | 20 6:55 | | | | | BEFORE BREAKFAST, First dose on | | AM PST | | | | | [facility] 12/02/19 at 0730, Do not cut | | | | | | | or crush., Indication: Gastric | | | | | | | hypersecretion | | | | | | + +-------+ +-------+---+---+ +-------+ +-------+---+---+ | Given | 12/09/19 | 40 mg | | | | | 20 6:13 | | | | | | AM PST | | | | +-------+ +-------+---+---+ | Given | 12/08/19 | 40 mg | | | | | 20 6:55 | | | | | | AM PST | | | | +-------+ +-------+---+---+ +---+---+ | | | +---+---+ + +-------+ +------+---+---+ | polyethylene glycol (MIRALAX) | Given | 12/05/19 | 17 g | | | | powder 17 g 17 g, Oral, DAILY | | 20 11:15 | | | | | PRN, Constipation, Starting Wed | | AM PST | | | | | 12/01/19 at 1557, Mix with 8 oz. | | | | | | | water., | | | | | | + +-------+ +------+---+---+ +---+---+ | | | +---+---+ + +-------+ +---------+---+---+ | polyvinyl alcohol (LIQUITEARS) | Given | 12/10/19 | 2 drops | | | | 1.4% ophthalmic solution 2 drop | | 20 6:57 | | | | | 2 drop, Both Eyes, DAILY BEFORE | | AM PST | | | | | BREAKFAST, First dose on Fri | | | | | | | 12/01/19 at 1615, Administer this | | | | | | | eyedrop before all others., | | | | | | + +-------+ +---------+---+---+ +-------+ +---------+---+---+ | Given | 12/09/19 | 2 drops | | | | | 20 6:16 | | | | | | AM PST | | | | +-------+ +---------+---+---+ | Given | 12/08/19 | 2 drops | | | | | 20 6:56 | | | | | | AM PST | | | | +-------+ +---------+---+---+ +---+---+ | | | +---+---+ + +-------+ +--------+---+---+ | potassium chloride (Klor-Con | Given | 12/07/19 | 20 mEq | | | | M20) ER tablet 20 mEq 20 mEq, | | 20 9:37 | | | | | Oral, ONCE, 12/07/19 at 0815, | | AM PST | | | | | For 1 dose | | | | | | + +-------+ +--------+---+---+ +---+---+ | | | +---+---+ + +-------+ +-------+---+---+ | predniSONE (DELTASONE) tablet | Given | 12/10/19 | 10 mg | | | | 10 mg 10 mg, Oral, DAILY, First | | 20 8:24 | | | | | dose (after last modification) on | | AM PST | | | | | [facility] 12/09/19 at 0900 | | | | | | + +-------+ +-------+---+---+ +-------+ +-------+---+---+ | Given | 12/09/19 | 10 mg | | | | | 20 8:10 | | | | | | AM PST | | | | +-------+ +-------+---+---+ +---+---+ | | | +---+---+ + +-------+ +-------+---+---+ | predniSONE (DELTASONE) tablet | Given | 12/08/19 | 20 mg | | | | 20 mg 20 mg, Oral, DAILY, First | | 20 10:29 | | | | | dose (after last modification) on | | AM PST | | | | | 12/08/19 at 0900 | | | | | | + +-------+ +-------+---+---+ +---+---+ | | | +---+---+ + +-------+ +-------+---+---+ | predniSONE (DELTASONE) tablet | Given | 12/07/19 | 40 mg | | | | 40 mg 40 mg, Oral, DAILY, First | | 20 9:36 | | | | | dose on 12/05/19 at 0900 | | AM PST | | | | + +-------+ +-------+---+---+ +-------+ +-------+---+---+ | Given | 12/06/19 | 40 mg | | | | | 20 8:38 | | | | | | AM PST | | | | +-------+ +-------+---+---+ | Given | 12/05/19 | 40 mg | | | | | 20 8:09 | | | | | | AM PST | | | | +-------+ +-------+---+---+ +---+---+ | | | +---+---+ + +-------+ +--------+---+---+ | saccharomyces selinai | Given | 12/02/19 | 250 mg | | | | (FLORASTOR) capsule 250 mg 250 | | 20 8:30 | | | | | mg, Oral, 2 TIMES DAILY, First | | PM PST | | | | | dose on Fri12/01/19 at 2100, | | | | | | | Probiotics added by pharmacy per | | | | | | | P&T protocol Do not open or | | | | | | | crush., | | | | | | + +-------+ +--------+---+---+ +-------+ +--------+---+---+ | Given | 12/02/19 | 250 mg | | | | | 20 9:08 | | | | | | AM PST | | | | +-------+ +--------+---+---+ | Given | 12/01/19 | 250 mg | | | | | 20 9:16 | | | | | | PM PST | | | | +-------+ +--------+---+---+ +---+---+ | | | +---+---+ + +-------+ +--------+---+---+ | senna (SENOKOT) tablet 8.6-17.2 | Given | 12/10/19 | 8.6 mg | | | | mg 8.6-17.2 mg, Oral, 2 TIMES | | 20 1:38 | | | | | DAILY PRN, Constipation, Starting | | AM PST | | | | | 12/01/19 at 1557 | | | | | | + +-------+ +--------+---+---+ +---+---+ | | | +---+---+ + +---------+ +-----+--------+---+ | vancomycin 1 g in sodium | New Bag | 12/03/19 | 1 g | 166.7 | | | chloride 0.9% 250 mL IVPB 1 g, | | 20 2:56 | | mL/hr | | | Intravenous, Administer over 90 | | PM PST | | | | | Minutes, EVERY 24 HOURS INTERVAL, | | | | | | | First dose on Fri12/01/19 at | | | | | | | 1500, Activate system and mix | | | | | | | before use., Indications: | | | | | | | pneumonia | | | | | | + +---------+ +-----+--------+---+ +---------+ +-----+--------+---+ | New Bag | 12/02/19 | 1 g | 166.7 | | | | 20 6:29 | | mL/hr | | | | PM PST | | | | +---------+ +-----+--------+---+ | New Bag | 12/01/19 | 1 g | 166.7 | | | | 20 2:18 | | mL/hr | | | | PM PST | | | | +---------+ +-----+--------+---+ +---+---+ | | | +---+---+ + +---------+ +--------+-------+---+ | vancomycin 500 mg in sodium | New Bag | 12/09/19 | 500 mg | 100 | | | chloride 0.9% 100 mL IVPB 500 | | 20 3:50 | | mL/hr | | | mg, Intravenous, Administer over | | AM PST | | | | | 60 Minutes, EVERY 12 HOURS | | | | | | | INTERVAL, First dose on Fri | | | | | | | 12/08/19 at 0400, Activate system | | | | | | | and mix before use., Indications: | | | | | | | Pneumonia | | | | | | + +---------+ +--------+-------+---+ +---------+ +--------+-------+---+ | New Bag | 12/08/19 | 500 mg | 100 | | | | 20 4:15 | | mL/hr | | | | PM PST | | | | +---------+ +--------+-------+---+ | New Bag | 12/08/19 | 500 mg | 100 | | | | 20 3:51 | | mL/hr | | | | AM PST | | | | +---------+ +--------+-------+---+ +---+---+ | | | +---+---+ + +---------+ +--------+-------+---+ | vancomycin 600 mg in sodium | New Bag | 12/07/19 | 600 mg | 256 | | | chloride 0.9% 250 mL IVPB 600 | | 20 3:30 | | mL/hr | | | mg, Intravenous, Administer over | | AM PST | | | | | 60 Minutes, EVERY 12 HOURS | | | | | | | INTERVAL, First dose (after last | | | | | | | modification) on 12/04/19 at | | | | | | | 1500, Keep in refrigerator., | | | | | | | Indications: pneumonia | | | | | | + +---------+ +--------+-------+---+ +---------+ +--------+-------+---+ | New Bag | 12/06/19 | 600 mg | 256 | | | | 20 5:04 | | mL/hr | | | | PM PST | | | | +---------+ +--------+-------+---+ | New Bag | 12/06/19 | 600 mg | 256 | | | | 20 4:30 | | mL/hr | | | | AM PST | | | | +---------+ +--------+-------+---+ +---+---+ [...]
--- OUTSIDE RECORDS SUMMARY | ~2020-03-14 | XMS | Encounter Summary ---
Demographics + + + | Address | [address] | | | [place] [address] | + + + | Home Phone [...] Team Providers + +------+ + | Care Housing Development Specialist Name | Role | Phone | [...] [place] | | | | | | [address] | | | | | | [phone] | | | +--------+ + + + [...] + | Blood Pressure | 120/78 | 12/15/2019 11:10 AM | | | | | PDT | | + + + + + | Pulse | 82 | 12/15/2019 11:10 AM | | | | | PDT | | + + + + + | Temperature | 36.2 C (97.2 F) | 12/15/2019 11:10 AM | | | | | PDT | | + + + + + | Respiratory Rate | 18 | 12/15/2019 11:10 AM | | | | | PDT | | + + + + + | Oxygen Saturation | 94% | 12/15/2019 11:10 AM | | | | | PDT [...] [place] | | | | | | [address] | | | | | | | | +--------+ + + + + | 04/11/ | Appointment | Radiology | Shawn Michael | | | 2019 | | | MD Marcelino [address] | | | | | | [address] | | | | | | [place] [address] | | | | | | [phone] | | | | | | | | +--------+ + + + + | 04/13/ | Office | Cardiology | Zacharynnamdi Shawn | | | 2019 | Visit | | MD Marcelino [address] | | | | | | [address] [place] | | | | | | [place] [address] | | | | | | [phone] | | | | | | | [...] - REPEAT VISIT | | Discipline - Care Home | + + + + +--------+--------+ [...] 020 | | | interventio | | Care Home | | | | | n [...] | | Active | | | | Care Home | | 020 | | | [...] 020 | | | interventio | | Care Home | | | | | n [...] | linked to | interventio | | Care Home | | 020 | | scheduled/d | [...] | | | | n | | Care Home | | | | | scheduled/d [...] | | Active | | | | Care Home | | 020 | | | [...] HH SHARED | | | See pain assess [...] HH SN | | | Instructed patient on | | medications | Medication | Comple | | medication | | Description: RN to | [...] setting up | | | | of all medication(s) as | | medication in | [...] | Problem: | | | See Resp status | | respiratory status | Oxygenation/Respirat | [...] Management | Comple | | wound cleanser, and foam | | type: Pressure sore | | yoel | | sacrum applied to | | Wound location: | | | | wound. Inst family to | | Coccyx Wound care: | | | | leave in place up to a | | Clean with WC/NS. | | | | week. | | May apply skin prep, | [...]
--- OUTSIDE RECORDS SUMMARY | ~2020-03-14 | XMS | Encounter Summary ---
Demographics + + + | Address | [address] | | | [place] [address] | + + + | Home Phone [...] Team Providers + +------+ + | Care Headlight Assembler Name | Role | Phone | [...] [place] | | | | | | [address] | | | | | | [phone] | | | +--------+ + + + [...] [place] | | | | | | [address] | | | | | | | | +--------+ + + + + | 04/11/ | Appointment | Radiology | Shawn Michael | | 2019 | | | MD Marcelino [address] | | | | | | [address] | | | | | | [place] [address] | | | | | | [phone] | | | | | | | | +--------+ + + + + | 04/13/ | Office | Cardiology | Shawn Michael | | | 2019 | Visit | | MD Marcelino [address] | | | | | | [address] [place] | | | | | | [place] [address] | | | | | | [phone] | | | | | | | [...]
--- OUTSIDE RECORDS SUMMARY | ~2020-03-14 | XMS | Encounter Summary ---
Demographics + + + | Address | [address] | | | [place] [address] | + + + | Home Phone [...] + | Author | [facility] | | | and [place] | + + + | Organization | [facility] | | | and [...] Team Providers + +------+ + | Care Logistics Operations Director Name | Role | Phone | [...] [place] | [facility] [address] | | | | | [place] [address] | | | | | | [phone] | | | +--------+ + + + [...] | | 2019 | Visit | | [facility]PPER TIER [address] | | | | | | [place] | | | | | | [address] | | | | | | | | +--------+ + + + + | 04/11/ | Appointment | Radiology | Shawn Michael | | | 2019 | | | MD [address] | | | | | | [address] [place] | | | | | | [place], [place] [address] | | | | | | [phone] | | | | | | | | +--------+ + + + + | 04/13/ | Office | Cardiology | Shawn Michael | | 2019 | Visit | | MD [address] | | | | | | [address] [place] | | | | | | [place] [address] | | | | | | [phone] | | | | | | | | +--------+ + + + + documented as of this encounter Procedures + +--------+ + + + | Procedure Name | Priori | Date/Time | Associated Diagnosis | Comments | | | ty | | | | + +--------+ + + + | CT RENAL STONE WO | Routin | 08/28/2017 | | Results for this | | CONTRAST | e | 12:00 AM | | procedure are in the | | | | PST | | results section. | + +--------+ + + + documented in this encounter Results CT Renal Stone Wo Contrast (08/28/2017 12:00 AM PST) + + | Specimen [...]
--- OUTSIDE RECORDS SUMMARY | ~2020-03-14 | XMS | Encounter Summary ---
Demographics + + + | Address | [address] | | | [place] [address] | + + + | Home Phone [...] Providers + +------+ + | Care Tool Tender Name | Role | Phone | [...] [place] | | | | | | [address] | | | | | | [phone] | | | +--------+ + + + [...] [place] | | | | | | [address] | | | | | | | | +--------+ + + + + | 04/11/ | Appointment | Radiology | Shawn Michael | | | 2019 | | | MD [address] | | | | | | [address] | | | | | | [place] [address] | | | | | | [phone] | | | | | | | | +--------+ + + + + | 04/13/ | Office | Cardiology | Shawn Michael | | 2019 | Visit | | Marcel[place], MD [address] | | | | | | [address] | | | | | | [place] [address] | | | | | | [phone] | | | | | | | [...]
--- OUTSIDE RECORDS SUMMARY | ~2020-03-14 | XMS | Encounter Summary ---
Demographics + + + | Address | [address] | | | [place] [address] | + + + | Home Phone [...] Team Providers + +------+ + | Care Passenger Vessel Chef Name | Role | Phone | + +------+ + | Candido Link | PCP | | | MD | | | + +------+ + Reason for Visit + + + | Reason | Comments | + + + | Recurrent Urinary | | | Tract Infection | | + + + | Incontinence | | + + + Evaluate & [...] | | dysfunction | i, | [address] | | | | | | Candido | Chris Perez, | | | | | | , [address] | [place] [address] | | | | | | [address] | Phone: | | | | | | [place], | [phone] | | | | | | [place] | Fax: | | | | | | [address] | [phone] | | | | | | Phone: | | | | | | | [phone] | | | | | | | Fax: | | | | | | | [phone] | | + + + + + + + Encounter Details +--------+---------+ + + + | Date | Type | Department | Care Team | Description | +--------+---------+ + + + | 08/30/ | Office | [facility] | Jag Anthony | Recurrent UTI | | 2019 | Visit | [address] | MD Arianna [address] | (Primary Dx); OAB | | | | [place] | [place] | (overactive | | | | [address] | [address] | bladder); Urge | | | | [phone] | | incontinence; | | | | [...] + + + | Blood Pressure | 102/52 | 08/30/2019 10:49 AM | | | | | PST | | + + + + + | Pulse | 84 | 08/30/2019 10:49 AM | | | | | PST | | + + + + + | Temperature | - | - | | + + + + + | Respiratory Rate | 18 | 08/30/2019 10:49 AM | | | | | PST | | + + + + + | Oxygen Saturation | - | - | | + + + + + | Inhaled Oxygen | - | - | | | Concentration | | | | + + + + + | Weight | 56.5 kg (124 lb 9 | 08/30/2019 10:49 AM | | | | oz) | PST | | + + + + + | Height | 172.7 cm (5' 8") | 08/30/2019 10:49 AM | | | | | PST | | + + + + + | Body Mass Index | 18.94 | 08/30/2019 10:49 AM | | | | | PST | | + + + + + documented in this encounter Jag Cano MD - 08/30/2019 11:15 AM PSTFormatting of this note might be differ ent from the original. Chief Complaint Patient presents with Recurrent Urinary Tract Infection Incontinence HPI Ángela Crowley is a 89 y.o. female patient of Candido Link MD here toda y for a follow up for recurrent urinary tract infection and urinary incontinence. Over the last year has had progressive urinary symptoms, recurrent UTI OAB, urge incontinence During the patient's last clinic visit Flomax was discontinued. She states after stopping the Flomax she had no changes in her urinary symptoms. She denies any dysuria or gross peng turia. Continues with frequency, urgency and urge incontinence. She also reports minor intermitte nt dysuria which is not very bothersome. Assessment Ángela was seen today for recurrent urinary tract infection and incontinence. Diagnoses and all orders for this visit: Recurrent UTI OAB (overactive bladder) Urge incontinence Atrophic vaginitis Other orders - oxybutynin (DITROPAN-XL) 10 MG 24 hr tablet; Take 1 tablet by mouth Daily. Plan PVR 76mL improved from prior visit Oxybutynin F/u in 4 weeks Past Medical History Past Medical History: Diagnosis Date Aortic stenosis COPD (chronic obstructive pulmonary disease) (HCC) Coronary artery disease Kidney stone Rheumatic fever Tuberculosis Venereal disease Past Surgical History Past Surgical History: Procedure Laterality Date 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 CHOLECYSTECTOMY COLONOSCOPY N/A 06/11/2019 Procedure: COLONOSCOPY-Possible Flex Sig; Surgeon: Edwin Stoddard MD; Location: [facility] HYSTERECTOMY NIRMAL AND BSO TONSILLECTOMY AND ADENOIDECTOMY UPPER GASTROINTESTINAL ENDOSCOPY N/A 06/07/2019 Procedure: EGD; Surgeon: Edwin Stoddard MD; Location: [facility] UPPER GASTROINTESTINAL ENDOSCOPY N/A 08/20/2019 Procedure: EGD; Surgeon: John Grimes MD; Location: [facility] Family History: Family History [...] use: Never Frequency: Never Allergies Allergen Reactions Metronidazole GI Upset Flagyl [Metronidazole] Nausea And Vomiting and GI Upset Percocet [Oxycodone] Unknown Pregabalin Unknown Lyrica Sulfa Antibiotics Unknown Medications: No current facility-administered medications for this visit. No current outpatient medications on file. Facility-Administered Medications Ordered in Other Visits: acetaminophen (TYLENOL) tablet 650 mg, 650 mg, Oral, Q6H PRN, Anna Hastings MD, 650 m g at 09/05/19 0514 adult multivitamin with minerals/iron tablet 1 tablet, 1 tablet, Oral, Daily, Anna Hastings MD, 1 tablet at 09/06/19 0946 albuterol 2.5 mg/3 mL nebulizer solution 2.5 mg, 2.5 mg, Nebulization, RT Q4H PRN, Leanne Hastings MD, 2.5 mg at 09/03/19 0225 albuterol-ipratropium 2.5-0.5 mg/3 mL nebulizer solution 3 mL, 3 mL, Nebulization, 4x Daily, Anna Hastings MD, 3 mL at 09/06/19 1609 aspirin chewable tablet 81 mg, 81 mg, Oral, Daily, Wayne Munoz MD, 81 mg at 11/24 0948 atorvaSTATin (LIPITOR) tablet 20 mg, 20 mg, Oral, QAM, Anna Hastings MD, 20 mg at 11/24 0948 bisacodyl (DULCOLAX) EC tablet 5 mg, 5 mg, Oral, Daily PRN, Anna Hastings MD brimonidine (ALPHAGAN) 0.2% ophthalmic solution 1 drop, 1 drop, Both Eyes, BID, Chucky Hastings MD, 1 drop at 09/06/19 0949 budesonide (PULMICORT) nebulizer solution 0.5 mg, 0.5 mg, Nebulization, BID, Anna galeana MD, 0.5 mg at 09/06/19 0814 calcium carbonate (TUMS) chewable tablet 1,000 mg, 1,000 mg, Oral, Daily, Anna barber MD, 1,000 mg at 09/06/19 0946 calcium carbonate (TUMS) chewable tablet 1,000 mg, 1,000 mg, Oral, Q4H PRN, Anna powell MD carvedilol (COREG) tablet 12.5 mg, 12.5 mg, Oral, BID WC, Wayne Munoz MD dicyclomine (BENTYL) capsule 10 mg, 10 mg, Oral, Daily PRN, Anna Hastings MD, 10 mg a t 09/06/19 0500 docusate sodium (COLACE) 50 mg/5 mL liquid 250 mg, 250 mg, Oral, QAM, Jazz Packer D, 250 mg at 09/04/19 0849 dorzolamide (TRUSOPT) 2% ophthalmic solution 1 drop, 1 drop, Both Eyes, BID, Anna galeana MD, 1 drop at 09/06/19 0952 escitalopram (LEXAPRO) tablet 5 mg, 5 mg, Oral, Daily, Anna Hastings MD, 5 mg at 11/24 0947 ferrous sulfate tablet 325 mg, 325 mg, Oral, Daily with breakfast, Anna Hastings MD, 325 mg at 09/06/19 0944 HYDROcodone-acetaminophen (NORCO) 7.5-325 mg per tablet 1 tablet, 1 tablet, Oral, Q8H PRN, Anna Hastings MD, 1 tablet at 09/06/19 0540 HYDROmorphone (DILAUDID) injection 0.2 mg, 0.2 mg, Intravenous, Q3H PRN, Wayne neff MD, 0.2 mg at 09/03/19 1142 latanoprost (XALATAN) 0.005% ophthalmic solution 1 drop, 1 drop, Both Eyes, Nightly, L antoine Hastings MD, 1 drop at 09/05/19 202 lisinopril (PRINIVIL, ZESTRIL) tablet 20 mg, 20 mg, Oral, Daily, Wayne Munoz MD, 20 mg at 09/06/19 0944 melatonin tablet 3 mg, 3 mg, Oral, Nightly PRN, Anna Hastings MD meropenem (MERREM) 1 g in sodium chloride 0.9% 50 mL IVPB, 1 g, Intravenous, Q12H, Rick Munoz MD, Last Rate: 100 mL/hr at 09/06/19 1439, 1 g at 09/06/19 1439 morphine injection 1-4 mg, 1-4 mg, Intravenous, Q4H PRN, Anna Hastings MD, 1 mg at 1005 nitroglycerin (NITROSTAT) SL tablet 0.4 mg, 0.4 mg, Sublingual, Q5 Min PRN, Anna powell MD OLANZapine zydis (zyPREXA ZYDIS) disintegrating tablet 5 mg, 5 mg, Oral, Nightly, Ann-Marie Munoz MD, 5 mg at 09/05/192022 ondansetron (ZOFRAN) injection 4 mg, 4 mg, Intravenous, Q6H PRN, Anna Hastings MD oxybutynin (DITROPAN XL) ER tablet 10 mg, 10 mg, Oral, Daily, Anna Hastings MD, 10 mg at 09/06/19 0948 pantoprazole (PROTONIX) injection 80 mg, 80 mg, Intravenous, BID, Anna Hastings MD, 8 0 mg at 09/06/19 0944 polyethylene glycol (MIRALAX) powder 17 g, 17 g, Oral, Daily PRN, Anna Hastings MD, 1 7 g at 09/05/19 0904 polyvinyl alcohol (LIQUITEARS) 1.4% ophthalmic solution 2 drop, 2 drop, Both Eyes, QAM , Anna Hastings MD, 2 drop at 09/06/19 0949 predniSONE (DELTASONE) tablet 10 mg, 10 mg, Oral, Daily, Anna Hastings MD, 10 mg at 1 11/07/18 0948 senna (SENOKOT) tablet 8.6 mg, 8.6 mg, Oral, BID PRN, Anna Hastings MD, 8.6 mg at 10/24 0904 sodium chloride (OCEAN) 0.65% nasal spray 2 spray, 2 spray, Each Nare, Q2H PRN, Chucky Hastings MD, 2 spray at 09/05/19 0340 Review of Systems Constitutional: Negative for chills and fever. Respiratory: Positive for cough and wheezing. Gastrointestinal: Negative for nausea and vomiting. Objective BP 102/52 | Pulse 84 | Resp 18 | Ht 1.727 m (5' 8") | Wt 56.5 kg (124 lb 9 oz) | BMI 1 8.94 kg/m General Appearance: Alert, cooperative, no distress, appears stated age, frail appearing Head: Normocephalic, without obvious abnormality, atraumatic Lungs: Regular, slightly labored breathing MS No CVA tenderness, no spinal tenderness, no scoliosis present Abdomen: Soft, non-tender, no masses Extremities: Extremities normal, atraumatic, no cyanosis, clubbing, or edema Pulses: Radial pulses 2+ and symmetric Skin: Warm and dry Lymph nodes: Cervical and supraclavicular nodes normal Neurologic: Slow unsteady gait, CN 2-12 grossly intact; significantly delayed get up and go test; decreased hydroelectric systems technician strength bilaterally Data: Results for orders placed or performed during the hospital encounter of 08/19/19 Clostridioides difficile NAAT Reflex Result Value Ref Range C. difficile, Interp Negative Negative C. difficile, NAAT Negative Culture, Blood Result Value Ref Range Culture No growth after 5 days incubation. Culture, Blood Result Value Ref Range Culture No growth after 5 days incubation. Culture, Urine Result Value Ref Range Culture >100,000 CFU/ml Enterococcus faecium Culture 15,000 CFU/ml Escherichia coli Susceptibility Enterococcus faecium - (no method available) Ampicillin <=2 Sensitive ug/mL Ciprofloxacin 2 Intermediate ug/mL Levofloxacin 4 Intermediate ug/mL Nitrofurantoin 64 Intermediate ug/mL Penicillin G 0.25 Sensitive ug/mL Vancomycin <=0.5 Sensitive ug/mL Escherichia coli - (no method available) Cefazolin <=4 Sensitive ug/mL Cefoxitin 8 Sensitive ug/mL Ceftazidime <=1 Sensitive ug/mL Ceftriaxone <=1 Sensitive ug/mL Ciprofloxacin <=0.25 Sensitive ug/mL Ertapenem <=0.5 Sensitive ug/mL Gentamicin <=1 Sensitive ug/mL Meropenem <=0.25 Sensitive ug/mL Nitrofurantoin <=16 Sensitive ug/mL Tobramycin <=1 Sensitive ug/mL Trimethoprim + Sulfamethoxazole <=20 Sensitive ug/mL CBC with Differential Result Value Ref Range WBC 10.1 4.0 - 11.0 K/uL RBC 2.94 (L) 3.70 - 5.20 M/uL Hemoglobin 8.4 (L) 11.5 - 16.0 g/dL Hematocrit 28.0 (L) 34.0 - 47.0 % MCV 95.2 83.0 - 101.0 fL MCH 28.6 28.0 - 35.0 pg MCHC 30.0 (L) 32.0 - 36.0 g/dL RDW-CV 15.7 (H) <15.0 % RDW-SD 54.6 (H) 35.1 - 46.3 fL Platelet Count 180 140 - 440 K/uL MPV 10.4 6.5 - 12.4 fL % Neutrophils 93.4 (H) 45.0 - 82.0 % % Lymphocytes 3.5 (L) 20.0 - 45.0 % % Monocytes 2.6 (L) 4.0 - 12.0 % % Eosinophils 0.1 0.0 - 5.0 % % Basophils 0.2 0.0 - 1.0 % % Immature Granulocytes 0.2 0.0 - 0.4 % Absolute Neutrophils 9.46 (H) 1.80 - 8.50 K/uL Absolute Lymphocytes 0.35 (L) 0.60 - 3.20 K/uL Absolute Monocytes 0.26 0.00 - 1.00 K/uL Absolute Eosinophils 0.01 0.00 - 0.40 K/uL Absolute Basophils 0.02 0.00 - 0.10 K/uL Absolute Immature Granulocytes 0.02 0.00 - 0.03 K/uL % nRBC 0 0 - 2 per 100 WBCs Absolute nRBC 0.00 0.00 - 0.01 K/uL Comprehensive Metabolic Panel Result Value Ref Range Na 143 136 - 145 mmol/L K 3.2 (L) 3.4 - 5.1 mmol/L Cl 106 98 - 107 mmol/L CO2 28 20 - 31 mmol/L Anion Gap 9 3 - 16 mmol/L Glucose 195 (H) 60 - 106 mg/dL BUN 27 (H) 9 - 23 mg/dL Creatinine 0.76 0.55 - 1.02 mg/dL eGFR if not >60 >=60 mL/min/1.73m2 Calcium 8.1 (L) 8.7 - 10.4 mg/dL Albumin 3.0 (L) 3.2 - 4.8 g/dL Bilirubin Total 0.3 0.3 - 1.2 mg/dL Total Protein 4.9 (L) 5.7 - 8.2 g/dL AST 15 0 - 34 U/L ALT 17 10 - 49 U/L Alkaline Phosphatase 182 (H) 46 - 116 U/L Globulin 1.9 (L) 2.1 - 3.8 g/dL Albumin/Globulin Ratio 1.6 0.8 - 1.9 BUN/Creatinine Ratio 35.5 Troponin I Result Value Ref Range Troponin I 0.01 <0.06 ng/mL Extra Green Top Tube Result Value Ref Range Extra Green Top Tube Done Extra Lavender Top Tube Result Value Ref Range Extra Lavender Top Tube Done Iron, Total Result Value Ref Range Iron 25 (L) 50 - 170 ug/dL Ferritin Result Value Ref Range FERRITIN 65 7 - 271 ng/mL Transferrin Result Value Ref Range TRANSFERRIN 170.0 (L) 250.0 - 380.0 mg/dL Retic Count Result Value Ref Range % Reticulocyte Count 1.9 (H) 0.5 - 1.5 % Absolute Reticulocyte Count 0.0556 0.0164 - 0.0776 M/uL Immature Reticulocyte Fraction 9.8 2.3 - 15.9 % Reticulocyte Hemoglobin Content 29.4 29.0 - 38.0 pg Troponin I Result Value Ref Range Troponin I 0.01 <0.06 ng/mL Troponin I Result Value Ref Range Troponin I 0.01 <0.06 ng/mL B Type Natriuretic Peptide Result Value Ref Range BNP 448 (H) <100 pg/mL Hemoglobin and Hematocrit Result Value Ref Range Hematocrit 32.3 (L) 34.0 - 47.0 % Hemoglobin 9.9 (L) 11.5 - 16.0 g/dL Basic Metabolic Panel Result Value Ref Range [...] Range Magnesium 1.9 1.6 - 2.6 mg/dL Hemoglobin and Hematocrit Result Value Ref Range Hematocrit 34.1 34.0 - 47.0 % Hemoglobin 10.3 (L) 11.5 - 16.0 g/dL Hemoglobin and Hematocrit Result Value Ref Range Hematocrit 33.0 (L) 34.0 - 47.0 % Hemoglobin 10.1 (L) 11.5 - 16.0 g/dL Extra Green Top Tube Result Value Ref Range Extra Green Top Tube Done Extra Green Top Tube Result Value Ref Range Extra Green Top Tube Done Basic Metabolic Panel Result Value Ref Range [...] pH, Urine 6.0 5.0 - 8.0 Specific [place] 1.029 1.001 - 1.030 Protein, Urine Negative [...] Negative URINE COMMENT Urine Culture Set Up CBC with Differential Result Value Ref Range [...] Range Magnesium 1.9 1.6 - 2.6 mg/dL CBC with Differential [...] 8.7 - 10.4 mg/dL BUN/Creatinine Ratio 16.4 *Note: Due to a large number of results and/or encounters for the requested time period, so me results have not been displayed. A complete set of results can be found in Results Review . Lab Results Component Value Date CREA 0.72 09/05/2019 Candido Link MD's notes were reviewed in clinic today. Return in about 4 weeks (around 09/27/2019).. This document was generated in part using voice recognition software. Frequent wrong word or sound-alike substitutions may have occurred due to the inherent limitations of the voice recognition software. Although I have attempted to edit the content, I have not thoroughly proofread this note, and fabric normalizer errors are very likely to occur. CC: Candido Link MD documented in this encounter Plan of Treatment +--------+ + + + + | Date | Type | Specialty | Care Team | Description | +--------+ + + + + | 03/23/ | Office | Anticoagulation | García Harris, | | | 2019 | Visit | | [address] | | | | | | [place] | | | | | | [id number] | | | | | | | | +--------+ + + + + | 04/11/ | Appointment | Radiology | Shawn Michael | | | 2019 | | | MD Marcelino [address] | | | | | | [address] [place] | | | | | | [place] [address] | | | | | | [phone] | | | | | | | | +--------+ + + + + | 04/13/ | Office | Cardiology | Shawn Michael | | | 2019 | Visit | | MD Marcelino [address] | | | | | | [address] [place] | | | | | | [place] [address] | | | | | | [phone] | | | | | | | | +--------+ + + + + documented as of this encounter Procedures + +--------+ + + + | Procedure Name | Priori | Date/Time | Associated Diagnosis | Comments | | | ty | | | | + +--------+ + + + | IMAGING REPORT - | | 08/30/2019 | | Results for this | | EXTERNAL SCAN | | 12:00 AM | | procedure are in the | | | | PST | | results section. | + +--------+ + + + documented in this encounter Results IMAGING REPORT - EXTERNAL SCAN (08/30/2019 12:00 AM PST) + + + | Narrative | Performed At | + + + | Ordered by an | | | unspecified provider. | | + + + documented in this encounter Visit Diagnoses + + | Diagnosis | + + | Recurrent UTI - Primary Urinary tract infection, site not specified | + + | OAB (overactive bladder) Hypertonicity of bladder | + + | Urge incontinence | + + | Atrophic vaginitis [...]
--- OUTSIDE RECORDS SUMMARY | ~2020-03-14 | XMS | Encounter Summary ---
Demographics + + + | Address | [address] | | | [place] [address] | + + + | Home Phone | | + + + | Preferred Language | Unknown | + + + | Marital Status | | + + + | Protestant Affiliation | Unknown | + + + | Race | Unknown | + + + | Ethnic Group | Unknown | + + + Author + + + | Author | [facility] | | | and [place] | + + + | Organization | [facility] | | | [...] Team Providers + +------+ + | Care Loom Operator Name | Role | Phone | [...] + | 01/24/ | Home Care | [facility] [place] | Bernardo Souza | OT DISCIPLINE D/C | | 2020 | Visit | [place] [address] | [address] | | | | | [address] [place] | | | | | | [address] | | | | | | [phone] | | | +--------+ + + + [...] | | | | | [place] [address] | | | | | | [phone] | | | | | | | | +--------+ + + + + | 04/13/ | Office | Cardiology | Shawn Michael | | | 2019 | Visit | | MD Marcelino [address] | | | | | | [address] | | | | | | [place] [address] | | | | | | [phone] | | | | | | | [...] + | Visit Type - OT - DISCIPLINE D/C | | Discipline - Occupational Therapy | [...] | | | | Exercise/Mobility | PAINGoal: HH PAIN | Comple | | | | [...]
--- OUTSIDE RECORDS SUMMARY | ~2020-03-14 | XMS | Encounter Summary ---
Demographics + + + | Address | [address] | | | [place] [address] | + + + | Home Phone [...] Providers + +------+ + | Care Supply Chain Consultant Name | Role | Phone | [...] [place] | | | | | | [address] | | | | | | [phone] | | | +--------+ + + + [...] | | | | | [place] [address] | | | | | | [phone] | | | | | | | | +--------+ + + + + | 04/13/ | Office | Cardiology | Shawn Michael | | | 2019 | Visit | | MD Marcelino [address] | | | | | | [address] | | | | | | [place] [address] | | | | | | [phone] | | | | | | | [...]
--- OUTSIDE RECORDS SUMMARY | ~2020-03-14 | XMS | Encounter Summary ---
Demographics + + + | Address | [address] | | | [place] [address] | + + + | Home Phone | | + + + | Preferred Language | Unknown | + + + | Marital Status | | + + + | Yazidism Affiliation | Unknown | + + + [...] Team Providers + +------+ + | Care Chief Scientist Name | Role | Phone | [...] | 09/01/ | Home Care | [facility] [place] | Linda Laughlin, | SN TRSFR W/OUT D/C | | 2018 | Visit | [place] [address] | RN | ([place]) | | | | [place] | | | | | | [address] | | | | | | [phone] | | | +--------+ + + + [...] [place] | | | | | | [id number] | | | | | | | | +--------+ + + + + | 04/11/ | Appointment | Radiology | Shawn Michael | | 2019 | | | MD Marcelino [address] | | | | | [address] | | | | | | [place] [address] | | | | | | [phone] | | | | | | | | +--------+ + + + + | 04/13/ | Office | Cardiology | Maxood, Shawn | | | 2019 | Visit | | MD Marcelino [address] | | | | | | [address] [place] | | | | | | [place] [address] | | | | | | [phone] | | | | | | | [...] TRANSFER W/OUT D/C | | Discipline - Long-Term | + + + + +--------+--------+ + + | Problem | Description | Start | Status | Goals | Interventio | | | | Date | | | ns | + + +--------+--------+ + + | Bleeding | RECENT GI bleed | | | - | 1 problem | | Precautions | requiring blood | 08/28/ | Active | | | | Disciplines: | products and iron | 2018 | | | interventio | | Long-Term | infusion. | | | | n | | [...] 2018 | | | interventio | | Long-Term [...] Active | linked to | | | Long-Term | | 2018 | | scheduled/d | [...] | interventio | | Long-Term | | 2018 | | scheduled/d | [...] | | scheduled/d | ns | | Long-Term | | | | ocumented | scheduled/d | | | | | | interventio | ocumented | | | | | | n | in this | | | | | | | visit | + + +--------+--------+ + + | Health Promotion | | | | - | 1 problem | | Disciplines: | | 08/28/ | Active | | | | Long-Term, | | 2018 | | | interventio | | Physical Therapy, | | | | | n | | Occupational | | | | | scheduled/d | | Therapy, Case | | | | | ocumented | | Business Analytics Analyst, Physical | | | | | in this | | Electronic Organ Technician | | | | | visit | + + +--------+--------+ + + | Heart Failure/CHF | Heart Failure/CHF | | | - | 1 problem | | Disciplines: | | 08/28/ | Active | | | | Long-Term | | 2019 | | | interventio [...] to | interventio | | Long-Term | CHRONIC OXYGEN USE | 2019 | [...] | 2 problem | | Disciplines: | Stage 2 pressure | 08/28/ | Active | linked to | | | Long-Term | ulcer located on | 2019 | | scheduled/d | interventio | | | sacrum | | | ocumented | ns | | | | | | interventio | scheduled/d | | | | | | n | ocumented | | | | | | | in this | | | | | | | visit 3 | | | | | | | [...] | | | | as presented in [facility] | | | | | | Pt [...] Precautions | [facility] | | | | Description: | | led | | | | Assess pt for S/S of | | | | | | GI distress. | | | | | + + +--------+--------+ + | Instruct in | Problem: HH SHARED | | | | | Depression | DEPRESSION | [facility] | | | | Management | | led | | | | Description: | | | | | | Baldomero teaching | | | | | | sheet given is | | | | | | related to | | | | | | Depression | | | | | | Management plan of | | | | | | care. Instruct pt | | | | | | the need to take | | | | | | prescribed | | | | | | medications for | | | | | | depression as | | | | | | ordered. Instruct | | | | | | in s/s to report to | | | | | | RN/MD | | | | | + + +--------+--------+ + | Instruct in Fall | Problem: HH SHARED | | | | | Prevention | FALLSGoal: HH FALL | [facility] | | | | Description: | PREVENTION | led | | | | Instruct the patient [...] | | | identified | FALLS | [facility] | | | | Description: RN to | | led | | | | assess patient | | | | | | history of falls at | | | | | | each home visit. | | | | | + + +--------+--------+ + | Monitor and | Problem: HH SHARED | | | | | Address Pain | PAINGoal: PAIN | [facility] | | | | Description: | | led | | | | Monitor and address [...] | | of meds | Medication | [facility] | | | | Description: | ManagementGoal: | led | | | | Assess the patient [...] | | | | | | (possible LINE LOCATOR | | | | | | referral). [...] | | | | | | IS PALA AND UNABLE | | | | | [...] ManagementGoal: | led | | | | Description: | SN MEDICATION | | | | | Evaluate the | MANAGEMENT | | | | | adherence, | | | | | | effectiveness, and | | | | | | response of the | | [...] Instruct | Problem: SN | | | | | medications | Medication | [facility] | | | | Description: | ManagementGoal: | led | | | | Instruct | SN MEDICATION | | | | | patient/caregiver in | MANAGEMENT | | | | | pain medication | | | | | | administration for | | | | | | optimal | | | | | | results.Pre-medicate | | | | | | for dressing | | | | | | changes PRN. RN to | | | | | | leave updated | | | | | | medication list in | | | | | | pt's home. | | | | | + + +--------+--------+ + | Skilled assessment | Problem: SN | | | | | medications | Medication | [facility] | | | | Description: RN to | ManagementGoal: HH | led | | | | reconcile and | [...] | | immunization status | Promotion | [facility] | | | | Description: Have | | led | | | | you had a flu | | | | | | vaccine in the | | | | | | current flu season? | | | | | | Pt states she | | | | | | recieved influenza | | | | | | vaccination at her | | | | | [facility] this | | | | | | flu season. If | | | | | | yes, what was the | | | | | | date of your | | | | | | vaccination? does | | | | | | not remember the | | | | | | date. Date is not in | | | | | | epic. If no, may | | | | | | I arrange one for | | | | | | you? If patient | | | | | | is 65 or older or if | | | | | | indicated per [facility] | | | | | | Guidelines: Son and | | | | | | patient state pna | | | | | | vaccine recieved 2 | | | | | | years ago Have you | | | | | | ever had the | | | | | | pneumonia vaccine? | | | | | | yes If no, what | | | | | | is the reason? May | | | | | | I arrange one for | | | | | | you? Provided [facility] | | | | | | Handout. Provided | | | | | | education on risks | | | | | | and benefits of | | | | | | vaccination. | | | | | | Patient/caregiver | | | | | | acknowledged | | | | | | understanding of | | | | | | education. | | | | | + + +--------+--------+ + | Assess for | Problem: Heart | | | | | cardiovascular | Failure/CHF | [facility] | | | | status Description: | | led | | | | Assess compliance | | | [...] respiratory | Problem: Respiratory | | | | | status | StatusGoal: HH SN | [facility] | | | | Description: | RESPIRATORY | led | | | | Assess pt for [...] | Wound/Skin For | ManagementGoal: HH | [facility] | | | | Progression | SN WOUND MANAGEMENT | led | | | | Description: | | | | | | Assess wound and/or | | | | | | skin for healing | | | | | | progression. | | | | | + + +--------+--------+ + | HH INSTRUCT ON | Problem: Wound | | | | | DAILY SKIN | ManagementGoal: HH | [facility] | | | | INSPECTION | SN WOUND MANAGEMENT | led | | | | Description: | | | | | | Instruct | | | | | | patient/caregiver in | | | | | | daily inspection of | | | | | | skin and care | | | | | | including proper | | | | | | positioning for | | | | | | pressure | | | | | | redistribution. | | | | | + + +--------+--------+ + | Wound care | Problem: Wound | | | | | Description: Wound | ManagementGoal: HH | [facility] | | | | Type:Pressure ulcer | SN WOUND MANAGEMENT | led | | | | stage 2 Location: | | | | | | sacrum Wound care: | | | | | | Cleanse wound with | | | | | | wound cleanser apply | | | | | | bactroban ointment | | | | | | to wound base and | | | | | | cover with border | | | | | | foam Frequency: | | | | | | Change dressing | | | | | | WEEKLY and as needed | | | | | | (Dressing supplies | | | | | | may increase or | | | | | | decrease per wound | | | | | | needs) | | | | | + + +--------+--------+ + | Instruct | Problem: Wound | | | | | prevention of | Management | [facility] | | | | pressure ulcers | | led | | | | Description: | | [...] | | pressure ulcer | Management | [facility] | | | | | | led | | | + + +--------+--------+ + documented in this encounter"
--- OUTSIDE RECORDS SUMMARY | ~2020-03-14 | XMS | Encounter Summary ---
Demographics + + + | Address | [address] | | | [place] [address] | + + + | Home Phone [...] Providers + +------+ + | Care Food Beverage Attendant Name | Role | Phone | [...] | TIME OPEN) | | | | [address] | | | | | | [phone] | | | +--------+ + + + [...] | | | | | [place] [address] | | | | | | [phone] | | | | | | | | +--------+ + + + + | 04/13/ | Office | Cardiology | Shawn Michael | | | 2019 | Visit | | MD Marcelino [address] | | | | | | [address] [place] | | | | | | [place] [address] | | | | | | [phone] | | | | | | | [...] SN - DISCHARGE | | Discipline - Mcc | + [...] | | Active | | | | [facility] | | 020 | | | interventio [...]
--- OUTSIDE RECORDS SUMMARY | ~2020-03-14 | XMS | Encounter Summary ---
Demographics + + + | Address | [address] | | | [place] [address] | + + + | Home Phone [...] Team Providers + +------+ + | Care Cardroom Hand Name | Role | Phone | + [...] + + | 08/16/ | Refill | [facility] | Nikolay, | Medication Refill | | 2019 | | MEDICINE [address] | MD Candido | | | | | [facility] | [address] [place] [address] | | | | | [place] [address] | [place] [address] | | | | | [phone] | | | | | | | [...] | | 2019 | Visit | | [facility] [address] | | | | | | [place] | | | | | | [address] | | | | | | | | +--------+ + + + + | 04/11/ | Appointment | Radiology | Shawn Michael | | | 2019 | | | MD [address]ynor [address] | | | | | | [address] [place] | | | | | | [place] [address] | | | | | | [phone] | | | | | | | | +--------+ + + + + | 04/13/ | Office | Cardiology | Shawn Michael | | | 2019 | Visit | | MD [address] | | | | | | [address] [place] | | | | | | [place], [place] [address] | | | | | | [phone] | | | | | | | [...]
--- OUTSIDE RECORDS SUMMARY | ~2020-03-14 | XMS | Encounter Summary ---
Demographics + + + | Address | [address] | | | [place] [address] | + + + | Home Phone | | + + + | Preferred Language | Unknown | + + + | Marital Status | | + + + | Yazdanism Affiliation | Unknown | + + + [...] Team Providers + +------+ + | Care Hydraulic Controls Technician Name | Role | Phone | [...] + + | 09/09/ | Telephone | [facility] | Nikolay, | [facility] | | 2019 | | MEDICINE [address] [place] [address] | MD Candido | | | | | [facility] | [address] [place] [address] | | | | | [place] [address] | [place] [address] | | | | | [phone] | [phone] | | | | | | | [...] | | 2019 | Visit | | MICA LAYER [address] | | | | | | [place] | | | | | | [address] | | | | | | | | +--------+ + + + + | 04/11/ | Appointment | Radiology | Shawn Michael | | | 2019 | | | MD [address] | | | | | | [address] [place] | | | | | | [place] [address] | | | | | | [phone] | | | | | | | | +--------+ + + + + | 04/13/ | Office | Cardiology | Shawn Michael | | | 2019 | Visit | | MD [address]yn[address] | | | | | | [address] [place] | | | | | | [place], [place] [address] | | | | | | [phone] | | | | | | | [...]
--- OUTSIDE RECORDS SUMMARY | ~2020-03-14 | XMS | Encounter Summary ---
Demographics + + + | Address | [address] | | | [place] [address] | + + + | Home Phone [...] Team Providers + +------+ + | Care Sporting Goods Sales Manager Name | Role | Phone | [...] | 03/06/ | Telephone | [facility] | Nikolay, | Medication Refill | | 2019 | | MEDICINE [address] | MD Candido | | | | | [facility] | [address] [place] [address] | | | | | [place] [address] | [place] [address] | | | | | [phone] | [phone] | | | | | | | [...] | | 2019 | Visit | | [address] CL[address] | | | | | | [place] | | | | | | [address] | | | | | | | | +--------+ + + + + | 04/11/ | Appointment | Radiology | Shawn Michael | | | 2019 | | | MD [address] | | | | | | [address] [place] | | | | | | [place] [address] | | | | | | [phone] | | | | | | | | +--------+ + + + + | 04/13/ | Office | Cardiology | Shawn Michael | | | 2019 | Visit | | MD [address] | | | | | | [address] [place] | | | | | | [place] [address] | | | | | | [phone] | | | | | | | [...]
--- OUTSIDE RECORDS SUMMARY | ~2020-03-14 | XMS | Encounter Summary ---
Demographics + + + | Address | [address] | | | [place] [address] | + + + | Home Phone [...] Team Providers + +------+ + | Care Nail Cutter Name | Role | Phone | + [...] + + | 02/08/ | Hospital | [facility] | Teddy Carreno | Acute deep vein | | 2019 - | Encounter | [facility] | MD Mir [address] | thrombosis (DVT) of | | | | [address] [place] | [address] [place] | axillary vein of | | 02/23/ | | [facility] [place] [address] | [place] [address] | left upper extremity | | 2019 | | [phone] | [phone] | (HCC) (Primary Dx); | | | | | | Arm DVT (deep | | | | | Anna Hastings MD | venous | | | | | [address] | thromboembolism), | | | | | [place], [place] | acute, left (HCC); | | | | | [address] | 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; | | | | | [address] | Chronic obstructive | | | | | [place] | pulmonary disease, | | | | | [address] | unspecified COPD | | | | | | type ([facility]); | | | | | | 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 Name/Age/: Ángela Crowley [...] daily with wound care aka: SANTYL nystatin [id number] UNIT/GM cream aka: MYCOSTATIN Unchanged Medications Details [...] Please check in at 9:45. Contact information: [address] [place] [phone] Wound care for sacral wound: 1. [...] conveyed to the ordering provider, by the accounts receivable representative, immediately following the exam. Dictated and Signed [...] on the day of discharge with the medical specialist critical access hospital will participate in daily wound care [...] by: Keyur Carvajal MD, 02/24/2020 12:04 PM [facility] Portions of this chart may have been created with NeuroQuest voice recognition software. Occasi onal wrong-word or sound-alike substitutions may have occurred due to the inherent owen itations of voice recognition software. Please read the chart carefully and recognize, using context, where these substitutions have occurred documented in this encounter Discharge Instructions Instructions Moreno Fergusonssmichelle Orona RN - 02/24/2020 Discharge Instructions for Deep Vein Thrombosis (DVT) A blood clotorthrombusthat forms in [facility], deep vein is calledadeep vein throm bosis [...] themcorrectly.Be sure to tell all of your [facility],including dentists,that you are taking an anticoagulant. [...] changes to your medicines. And don't take kzjj-bas-qxaqjnh (OTC) medicines without checking with your provider. Some medicines interact with your anticoagulant and ma ke your blood too thin. This increases your risk of bleeding. Others may stop your anticoagu lant from doing its job, making your blood too thick. So it is very important to tell your [facility] provider about all of the medicines you [...] Vitaminswith vitamin K Someherbal products such as [place]'s wort, garlic, coenzyme Q10, turmeric, and ginkg [...] Bleeding from the vagina Date Last Reviewed: 02/04/201619990146-3738 [employer] - innovate | mentor | invest. [address] [place] [address], [place] [address]. All righ ts reserved. This information is [...] flavors available): 8 ounces per day ? Danby Fresh Yogurt (many flavors available): 6 ounces [...] 0 | 02/24/20 | | | (MYCOSTATIN) [id number] | | | | 20 | | [...] | | 0 | | | | ([facility]) 0.65% nasal | Nare route. two [...] Sharma MD - 02/23/2020 8:38 PM PDT [facility] PMG Hospitalist Progress Note Ángela Crowley is [...] above. Keyur Carvajal MD 02/23/2020 8:38 PM [facility] Portions of this chart may have been created with NeuroQuest voice recognition software. Occasi onal wrong-word or sound-alike substitutions may have occurred due to the inherent owen itations of voice recognition software. Please read the chart carefully and recognize, using context, where these substitutions have occurred YAPotBenjamin corona M D - 02/23/2020 10:15 AM PDT [facility] [place] PROGRESS NOTE Patient: Ángela Crowley : 1930: Age: 89 y.o. MedRec: [id number] Admission date: 02/09/2020 Hospital day # : [...] Argueta, the patient's son and power of employee benefits attorney, this morn ing via telephone. Following [...] possi ble need for admission to a intermediate facility for some period of time after release f rom the hospital. Again, he wished to avoid admitting his mother to a nursing facility, and he plans to have her return home following discharge. He did at the end of our conversatio n indicate to me his inclination to request transfer of his [facility] second opinion regarding her overall [...] remainder of her care team here at [facility] . Questions were answered to his satisfaction, and he voiced understanding. He stated that he was actually quite pleased with my consultation. He therefore granted verbal consent fo r bedside debridement under my care as above. We will proceed later today per his wishes. Benjamin Diaz MD 02/23/2020 10:15 AM [facility] Subjective CC fatigue ROS See above Exam [...] tablet 1-2 tablet Oral Q6H P RN Chcae Higuera MD 1 tablet at 02/23/20 0920 [...] Component Value Units Date/Time Coronavirus (COVID-19) NAAT [[id number]] (Normal) Collected: 02/22/201044 Order Status: Completed Lab Status: Final result Updated: 02/23/20851 Specimen: Tissue from Nasopharynx SARS coronavirus 2 NAAT Not Detected Narrative: See scanned report [facility] STAT instructions for COVID-19 tracking [[id number]] Collected: 02/22/201044 Order Status: Completed Lab Status: Final result Updated: 02/23/20851 Specimen: Tissue from Nasopharynx [facility] COVID STAT instruction -- Radiology results (more choices using dot risresults) No results found. Portions of this chart may have been created with NeuroQuest voice recognition software. Occasi onal wrong-word or sound-alike substitutions may have occurred due to the inherent owen itations of voice recognition software. Please read the chart carefully and recognize, using context, where these substitutions have occurred Keyur Sharma M D - 02/22/2020 7:55 PM PDT [facility] PMG Hospitalist Progress Note Ángela Crowley is [...] above. Keyur Carvajal MD 02/22/2020 7:55 PM [facility] Portions of this chart may have been created with NeuroQuest voice recognition software. Occasi onal wrong-word or sound-alike substitutions may have occurred due to the inherent owen itations of voice recognition software. Please read the chart carefully and recognize, using context, where these substitutions have occurred Devorah Daly RN - 02/22/2020 3:57 PM Drew here and examined patient and sacral wound at [facility]. Telephone call to pts son Yadiel who [...] might be differ ent from the original. [place], [place] PROGRESS NOTE Patient: Ángela Crowley : 1930: Age: 89 y.o. 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 I [...] wound care may relegate her to a intermediate facility for some per iod of time [...] accordingly. Benjamin Diaz MD 02/21/2020 5:24 PM [facility] Subjective CC wants to go home ROS [...] Nightly Anna Hastings MD 20 mg at 215 brimonidine (ALPHAGAN) [...] Procedure Component Value Units Date/Time Culture, Blood [[id number]] Collected: 02/20/20 0819 Order Status: Completed Lab Status: Preliminary result Updated: 02/20/202050 Specimen: Blood Culture No growth: Monitored continually by instrument for 5 days Culture, Blood [[id number]] Collected: 02/20/20 0628 Order Status: Completed Lab [...] this note might be different from the [place], [place] HOSPITALIST PROGRESS NOTE Patient: Ángela Crowley : 1930: Age: 89 y.o. MedRec: [id number] PCP: Candido Link MD Admission date: 02/09/2020 [...] care of at home. OMARI Tavera (Son) [phone] (H) [employer] cell phone ([employer]) Chace Higuera MD 02/21/2020 10:41 AM [facility] Subjective CC Hgb 9.1 from 9.0. WBC [...] Review. The Document type is Clinical Image Virtual Paperu/Aruna. Some photographs may also appear in certain [...] good set up and intermittent supervision. Dysphagia agricultural mechanic al altered soft chopped. Thin liquids. [...] 500 mg 500 mg Oral Q6H PRN Anan Hastings MD 500 mg a t 02/14/20 [...] Hastings MD nystatin (MYCOSTATIN) cream Topical BID Cahce Higuera MD pantoprazole (PROTONIX) DR tablet 40 mg 40 mg Oral QAM AC Anna Hastnigs MD 40 mg at 02/21/20 0633 Patient [...] for input(s): IRON, TIBC, PCTSAT, FERRITIN, TSH, [id number], FOLATE in the last 168 hours. Inflammatory [...] ABG No results for input(s): PHART, PO2ART, LWK1YZK, YSP2UGO, BEART, N4JFESAL in the last 168 h ours. No results for input(s): SPECSOURCE, PHPOCB, PCO2, PO2, HCO3, TCO2, BEART, NGGE1YDA in the last 168 hours. Drug of [...] Procedure Component Value Units Date/Time Culture, Blood [[id number]] Collected: 02/20/20 0819 Order Status: Completed Lab Status: Preliminary result Updated: 02/20/20 205 Specimen: Blood Culture No growth: Monitored continually by instrument for 5 days Culture, Blood [[id number]] Collected: 02/20/20 0628 Order Status: Completed Lab Status: Preliminary result Updated: 02/20/20 184 Specimen: Blood Culture No growth: Monitored continually by instrument for 5 days Culture, Wound, Smear, w/Anaerobe [[id number]] Collected: 02/16/20 133 Order Status: Sent Lab Status: In process Updated: 02/19/20 1231 Specimen: Tissue from Ver[place]brae, Sacral Narrative: The following orders were created for panel order Culture, Wound, Smear, w/Anaerobe. Procedure Abnormality Status --------- ------ Culture, Wound, Smear[[id number]] Final result Culture, Anaerobic[[id number]] Normal Preliminary result Please view results for these tests on the individual orders. Culture, Wound, Smear [[id number]] (Susceptibility) Collected: 02/16/201336 Order Status: Completed Lab [...] 1 ug/mL Not Specified Final Culture, Anaerobic [[id number]] (Normal) Collected: 02/16/20 1337 Order Status: Completed [...] this chart may have been created with NeuroQuest voice recognition software. Occasi onal wrong-word or sound-alike substitutions may have occurred due to the inherent owen itations of voice recognition software. Please read the chart carefully and recognize, using context, where these substitutions have occurred hace Higuera MD - 02/20/2020 11:27 AM PDTFormatting of this note might be different from the origin al. [facility] [place] HOSPITALIST PROGRESS NOTE Patient: Ángela Crowley : 1930: Age: 89 y.o. MedRec: [id number] PCP: Candido Link MD Admission date: 02/09/2020 [...] o f at home OMARI Tavera (Son) [phone] (H) business cell phone ([employer]) Chace Higuera MD 02/20/2020 11:28 AM [facility] Subjective CC Hgb 9.0 from 9.5. no [...] good set up and intermittent supervision. Dysphagia agricultural mechanic al altered soft chopped. Thin liquids. [...] for input(s): IRON, TIBC, PCTSAT, FERRITIN, TSH, [id number], FOLATE in the last 168 hours. Inflammatory [...] ABG No results for input(s): PHART, PO2ART, AWK4JUM, LYA5UDS, BEART, H1UPSMXD in the last 168 h ours. No results for input(s): SPECSOURCE, PHPOCB, PCO2, PO2, HCO3, TCO2, BEART, NTOF1FNG in the last 168 hours. Drug of [...] Procedure Component Value Units Date/Time Culture, Blood [[id number]] Collected: 02/20/20 0819 Order Status: Sent Lab Status: In process Updated: 02/20/20 0843 Specimen: Blood Culture, Blood [[id number]] Collected: 02/20/20 0628 Order Status: Sent Lab Status: In process Updated: 02/20/20 0632 Specimen: Blood Culture, Wound, Smear, w/Anaerobe [[id number]] Collected: 02/16/20 1337 Order Status: Sent Lab Status: In process Updated: 02/19/20 1231 Specimen: Tissue from Ver[place]bra[place], Sacral Narrative: The following orders were created for panel order Culture, Wound, Smear, w/Anaerobe. Procedure Abnormality Status --------- ------ Culture, Wound, Smear[[id number]] Final result Culture, Anaerobic[[id number]] Normal Preliminary result Please view results for these tests on the individual orders. Culture, Wound, Smear [[id number]] (Susceptibility) Collected: 02/16/201336 Order Status: Completed Lab [...] 1 ug/mL Not Specified Final Culture, Anaerobic [[id number]] (Normal) Collected: 02/16/201336 Order Status: Completed Lab [...] this chart may have been created with Approva recognition software. Occasi onal wrong-word or sound-alike [...] Krueger MD - 02/19/2020 1:19 PM PDT [place] HOSPITALIST PROGRESS NOTE Patient: Ángela Crowley : 1930: Age: 89 y.o. MedRec: [id number] PCP: Candido Link MD Admission date: 02/09/2020 [...] Likely 2-3 more days OMARI Tavera (Son) [phone] (H) business cell phone ([employer]) Chace Higuera MD 02/19/2020 1:19 PM [facility] Subjective CC Hgb 9.5 from 10.2. WBC [...] Review. The Document type is Clinical Image Vinecnzoku/Aruna. Some photographs may also appear in certain [...] good set up and intermittent supervision. Dysphagia agricultural mechanic al altered soft chopped. Thin liquids. [...] for input(s): IRON, TIBC, PCTSAT, FERRITIN, TSH, [id number], FOLATE in the last 168 hours. Inflammatory [...] ABG No results for input(s): PHART, PO2ART, LLC2TRD, EXN8WXQ, BEART, I5GNFCRM in the last 168 h ours. No results for input(s): SPECSOURCE, PHPOCB, PCO2, PO2, HCO3, TCO2, BEART, ALDQ3QFY in the last 168 hours. Drug of [...] Value Units Date/Time Culture, Wound, Smear, w/Anaerobe [[id number]] Collected: 02/16/201336 Order Status: Sent Lab Status: In process Updated: 02/19/20 1231 Specimen: Tissue from Vertebrae, Sacral Narrative: The following orders were created for panel order Culture, Wound, Smear, w/Anaerobe. Procedure Abnormality Status --------- ------ Culture, Wound, Smear[[id number]] Final result Culture, Anaerobic[[id number]] In process Please view results for these tests on the individual orders. Culture, Wound, Smear [[id number]] (Susceptibility) Collected: 02/16/201336 Order Status: Completed Lab [...] 1 ug/mL Not Specified Final Culture, Anaerobic [[id number]] Collected: 02/16/20 1337 Order Status: Resulted Lab Status: In process Updated: 02/16/20 1341 Specimen: Tissue from Vertebrae, Sacral Coronavirus (COVID-19) NAAT [[id number]] (Normal) Collected: 02/12/20 1615 Order Status: Completed Lab Status: Final result Updated: 02/13/20 1124 Specimen: Tissue from Nasopharynx SARS coronavirus 2 NAAT Not Detected Narrative: [facility] for COVID-19 tracking [[id number]] Collected: 02/12/20 1615 Order Status: Completed Lab [...] this chart may have been created with NeuroQuest voice recognition software. Occasi onal wrong-word or sound-alike substitutions may have occurred due to the inherent owen itations of voice recognition software. Please read the chart carefully and recognize, using context, where these substitutions have occurred eynoYoly morton RN - 02/18/2020 5:58 PM [id number] Called Arcadio Argueta at [phone], introduced mys elf and asked if I [...] had discussed with specialis ts on the [facility] he is friends with (states results are [...] so. He has some ehlp throuh his [facility]. Complained about home health having an appointment [...] needs. We will have FUNMILAYO Boss thr [facility] who can work with Dr. Millan [...] years and has had some training from [facility]. Let h im express feelings of stay at [facility] and other concerns. He states "I [...] like it e-mailed he said yes to [email or web address]. I sent this via #secure# e-mail and g ave him my phone number if he has any questions. He states he will have to send this to his Business Broker to see if he can sign and does not know how long that will take. I let him know h e does not have to sign the document and it will be in the record. erry, Chace hayes MD - 02/18/2020 11:02 AM PDT [place] HOSPITALIST PROGRESS NOTE Patient: Ángela Crowley : 1930: Age: 89 y.o. MedRec: [id number] PCP: Candido Link MD Admission date: 02/09/2020 [...] 2-3 more days POA Yadiel Tavera (Son) [phone] (H) business cell phone ([employer]) Chace Higuera MD 02/18/2020 11:02 AM [facility] Subjective CC 1U PRBC given on 02/16 [...] Review. The Document type is Clinical Image Virtual Paperu/Aruna. Some photographs may also appear in certain [...] good set up and intermittent supervision. Dysphagia agricultural mechanic al altered soft chopped. Thin liquids. [...] for input(s): IRON, TIBC, PCTSAT, FERRITIN, TSH, [id number], FOLATE in the last 168 hours. Inflammatory [...] ABG No results for input(s): PHART, PO2ART, EAD4AHG, QMV3QWC, BEART, Q1CUGQGJ in the last 168 h ours. No results for input(s): SPECSOURCE, PHPOCB, PCO2, PO2, HCO3, TCO2, BEART, NBIY4EXK in the last 168 hours. Drug of [...] Value Units Date/Time Culture, Wound, Smear, w/Anaerobe [[id number]] Collected: 02/16/201336 Order Status: Sent Lab Status: In process Updated: 02/16/20 134 Specimen: Tissue from Vertebrae, Sacral Narrative: The following orders were created for panel order Culture, Wound, Smear, w/Anaerobe. Procedure Abnormality Status --------- ------ Culture, Wound, Smear[[id number]] Preliminary result Culture, Anaerobic[[id number]] In process Please view results for these tests on the individual orders. Culture, Wound, Smear [[id number]] Collected: 02/16/201336 Order Status: Completed Lab Status: Preliminary result Updated: 02/18/20 1012 Specimen: Tissue from Vertebrae, Sacral Culture 4+ Enterococcus species Comment: Presumptive identification Identification and susceptibility to follow. 4+ Yeast species Comment: Identification to follow. Gram Stain Result No white blood cells (PMNs) seen 2+ Yeast with pseudohyphae Culture, Anaerobic [[id number]] Collected: 02/16/201336 Order Status: Resulted Lab Status: In process Updated: 02/16/20 1341 Specimen: Tissue from Vertebrae, Sacral Coronavirus (COVID-19) NAAT [[id number]] (Normal) Collected: 02/12/20 1615 Order Status: Completed Lab Status: Final result Updated: 02/13/20 1124 Specimen: Tissue from Nasopharynx SARS coronavirus 2 NAAT Not Detected Narrative: See [facility] STAT instructions for COVID-19 tracking [[id number]] Collected: 02/12/20 1615 Order Status: Completed Lab [...] this chart may have been created with NeuroQuest voice recognition software. Occasi onal wrong-word or sound-alike substitutions may have occurred due to the inherent owen itations of voice recognition software. Please read the chart carefully and recognize, using context, where these substitutions have occurred hace Higuera MD - 02/17/2020 8:50 AM PDTFormatting of this note might be different from the origin al. [place] HOSPITALIST PROGRESS NOTE Patient: Ángela Crowley : 1930: Age: 89 y.o. MedRec: [id number] PCP: Candido Link MD Admission date: 02/09/2020 [...] likely 2-3 more days OMARI Tavera (Son) [phone] (H) [employer] cell phone ([employer]) Chace Higuera MD 02/17/2020 8:50 AM [facility] Subjective CC Eager to get back home. [...] good set up and intermittent supervision. Dysphagia agricultural mechanic al altered soft chopped. Thin liquids. [...] for input(s): IRON, TIBC, PCTSAT, FERRITIN, TSH, [id number], FOLATE in the last 168 hours. Inflammatory [...] ABG No results for input(s): PHART, PO2ART, UHU4DKA, VOL0WPM, BEART, N7FYRWOD in the last 168 h ours. No results for input(s): SPECSOURCE, PHPOCB, PCO2, PO2, HCO3, TCO2, BEART, JMRQ5YKK in the last 168 hours. Drug of [...] Value Units Date/Time Culture, Wound, Smear, w/Anaerobe [[id number]] Collected: 02/16/201336 Order Status: Sent Lab Status: In process Updated: 02/16/20 1341 Specimen: Tissue from Vertebrae, Sacral Narrative: The following orders were created for panel order Culture, Wound, Smear, w/Anaerobe. Procedure Abnormality Status --------- ------ Culture, Wound, Smear[[id number]] Preliminary result Culture, Anaerobic[[id number]] In process Please view results for these tests on the individual orders. Culture, Wound, Smear [[id number]] Collected: 02/16/201336 Order Status: Completed Lab Status: Preliminary result Updated: 02/17/20 0835 Specimen: Tissue from Ver[place]brae, Sacral Culture 4+ Enterococcus species Comment: Presumptive identification Isolating for additional information. 4+ Yeast species Comment: Isolating for additional information. Gram Stain Result No white blood cells (PMNs) seen 2+ Yeast with pseudohyphae Culture, Anaerobic [[id number]] Collected: 02/16/20 1337 Order Status: Resulted Lab Status: In process Updated: 02/16/20 1341 Specimen: Tissue from Vertebrae, Sacral Coronavirus (COVID-19) NAAT [[id number]] (Normal) Collected: 02/12/20 1615 Order Status: Completed Lab Status: Final result Updated: 02/13/20 1124 Specimen: Tissue from Nasopharynx SARS coronavirus 2 NAAT Not Detected Narrative: See scanned reoport [facility] STAT instructions for COVID-19 tracking [[id number]] Collected: 02/12/20 1615 Order Status: Completed Lab [...] this chart may have been created with NeuroQuest voice recognition software. Occasi onal wrong-word or sound-alike substitutions may have occurred due to the inherent owen itations of voice recognition software. Please read the chart carefully and recognize, using context, where these substitutions have occurred erry, Chace hobson MD - 02/16/2020 3:24 PM PDTFormatting of this note might be different from the origin [place], [place] HOSPITALIST PROGRESS NOTE Patient: Ángela Crowley : 1930: Age: 89 y.o. MedRec: [id number] PCP: Candido Link MD Admission date: 02/09/2020 [...] likely 1-3 more days POHesham Tavera (Son) [phone] (H) business cell phone (Legal Shield) Chace Higuera MD 02/16/2020 3:24 PM [facility] Subjective CC Continued to ask to want [...] good set up and intermittent supervision. Dysphagia agricultural mechanic al altered soft chopped. Thin liquids. [...] for input(s): IRON, TIBC, PCTSAT, FERRITIN, TSH, [id number], FOLATE in the last 168 hours. Inflammatory [...] ABG No results for input(s): PHART, PO2ART, FUM3ABQ, LPR4SSJ, BEART, Z3IGGCNY in the last 168 h ours. No results for input(s): SPECSOURCE, PHPOCB, PCO2, PO2, HCO3, TCO2, BEART, IKGY3XGM in the last 168 hours. Drug of [...] Value Units Date/Time Culture, Wound, Smear, w/Anaerobe [[id number]] Collected: 02/16/201336 Order Status: Sent Lab Status: In process Updated: 02/16/20 134 Specimen: Tissue from Vertebrae, Sacral Narrative: The following orders were created for panel order Culture, Wound, Smear, w/Anaerobe. Procedure Abnormality Status --------- ------ Culture, Wound, Smear[[id number]] Preliminary result Culture, Anaerobic[[id number]] In process Please view results for these tests on the individual orders. Culture, Wound, Smear [[id number]] Collected: 02/16/201336 Order Status: Completed Lab Status: Preliminary result Updated: 02/16/20 1507 Specimen: Tissue from Vertebrae, Sacral Gram Stain Result No white blood cells (PMNs) seen 2+ Yeast with pseudohyphae Culture, Anaerobic [[id number]] Collected: 02/16/20 1337 Order Status: Resulted Lab Status: In process Updated: 02/16/20 1341 Specimen: Tissue from Ver[place]bra[place], Sacral Coronavirus (COVID-19) NAAT [[id number]] (Normal) Collected: 02/12/20 1615 Order Status: Completed Lab Status: Final result Updated: 02/13/20 1124 Specimen: Tissue from Nasopharynx SARS coronavirus 2 NAAT Not Detected Narrative: See scanned reoport [facility] STAT instructions for COVID-19 tracking [[id number]] Collected: 02/12/20 1615 Order Status: Completed Lab [...] this chart may have been created with NeuroQuest voice recognition software. Occasi onal wrong-word or sound-alike substitutions may have occurred due to the inherent owen itations of voice recognition software. Please read the chart carefully and recognize, using context, where these substitutions have occurred Hailey Stein RRT - 02/16/2020 9:55 AM PDTMouth rinse post neb therapy treatment, tolerated well. Bruce Forde MD - 02/15/2020 2:32 PM PDT . [place] HOSPITALIST PROGRESS NOTE Patient: Ángela Crowley : 1930: Age: 89 y.o. MedRec: [id number] PCP: Candido Link MD Admission date: 02/09/2020 [...] in today (RN says could not get mother baby rn) ROS See above Objective Exam General Alert asks to go home. Hard of hearing Cardiac Regula Extremities no sig ankle edema Lungs laying on her side (so I could check and photo decub) lungs slight dependent crackles also some rhonchi is NOT labored Abdominal Neuro alert oriented to name, hospital but says is in [place], she thinks the year is 1919, cannot [...] x1 not to place or time. Passed STUDIO COORDINATOR evaluation with dysphagia diet ordered on 01/31 [...] stable, no chest pain during admission. 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 Will require upper GI workup per STUDIO COORDINATOR . Recommend reflux precautions and puree diet. [...] bid given stress of hospi talization Prednisone MILIEU COORDINATOR 10 mg but now on stress at 10 mg bid Son Wayne is POA and Medical POA Emergency Contact 1 Yadiel Tavera (Son) [phone] (H) business cell phone ([employer]) 7th phone call he was [facility], is [address] [...] could not come in today (lack of mother baby rn) Apixaban drops to 2.5 mg bid on Fri Consider debridement later this week for decub Changed to Septra + Clinda instead of Doxy + Clinda Dr Thrasher will recheck Decub today or tomorrow and if decides needs sgy he can contact her POA son Wayne MILIEU COORDINATOR is Brovana 15 mcg/2 ml and budesonide 0.5 mg/2 ml mix together and give in neb bid Addendum (02/13/2020 3:49 PM) Recheck Labs K was better HgB down 0.1 he did bring in her Neb Rx, orders adjusted Time spent ydwz-ka-qzyx with patient and/or delong unit time (of [...] Septra Bruce Cochran MD 02/15/2020 2:32 PM [facility] (dot meyaddendum tdnorefesh nownorefresh) (dot meytime meycritical [...] good set up and intermittent supervision. Dysphagia agricultural mechanic al altered soft chopped. Thin liquids. [...] this chart may have been created with NeuroQuest voice recognition software. Occasi onal wrong-word or sound-alike substitutions may have occurred due to the inherent owen itations of voice recognition software. Please read the chart carefully and recognize, using context, where these substitutions have occurred. eyer, Bruce Coe MD - 02/14/2020 12:13 PM PDT [place] HOSPITALIST PROGRESS NOTE Patient: Ángela Crolwey : 1930: Age: 89 y.o. 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 Passed STUDIO COORDINATOR evaluation with dysphagia diet ordered on 01/31 [...] stable, no chest pain during admission. 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 Will require upper GI workup per STUDIO COORDINATOR . Recommend reflux precautions and puree diet. [...] bid given stress of hospi talization Prednisone MILIEU COORDINATOR 10 mg but now on stress at 10 mg bid Arcadio Black is POA and Medical POA Emergency Contact 1 Yadiel Tavera (Son) [phone] (H) [employer] cell phone ([employer]) 7th phone call he was [facility], is [address] [...] says mix it with her budesonide bid MILIEU COORDINATOR is Brovana 15 mcg/2 ml and budesonide 0.5 mg/2 ml mix together and give in neb bid Addendum (02/13/2020 3:49 PM) Recheck Labs K was better HgB down 0.1 he did bring in her Neb Rx, orders adjusted Time spent djgg-gl-dzmb with patient and/or delong unit time (of [...] Septra Bruce Cochran MD 02/14/2020 12:13 PM [facility] (dot meyaddendum tdnorefesh nownorefresh) (myla meytime meycritical [...] good set up and intermittent supervision. Dysphagia agricultural mechanic al altered soft chopped. Thin liquids. [...] this chart may have been created with NeuroQuest voice recognition software. Occasi onal wrong-word or sound-alike substitutions may have occurred due to the inherent owen itations of voice recognition software. Please read the chart carefully and recognize, using context, where these substitutions have occurred. eyer, Bruce Coe MD - 02/13/2020 1:48 PM PDT [facility] [place] HOSPITALIST PROGRESS NOTE Patient: Ángela Crowley : 1930: Age: 89 y.o. MedRec: [id number] PCP: Candido Link MD Admission date: 02/09/2020 [...] x1 [address] or time. Passed STUDIO COORDINATOR evaluation with dysphagia diet ordered on 01/31 [...] stable, no chest pain during admission. 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 Will require upper GI workup per STUDIO COORDINATOR . Recommend reflux precautions and puree diet. [...] talization Son Wayne phone call he was [facility], is [address] [...] says mix it with her budesonide bid MILIEU COORDINATOR is Brovana 15 mcg/2 ml and budesonide 0.5 mg/2 ml mix together and give in neb bid Addendum (02/13/2020 3:49 PM) Recheck Labs K was better HgB down 0.1 he did bring in her Neb Rx, orders adjusted Time spent yuax-gf-rshx with patient and/or delong unit time (of [...] Septra Bruce Cochran MD 02/13/2020 1:48 PM [facility] (dot meyaddendum tdnorefesh nownorefresh) (dot meytime meycritical [...] good set up and intermittent supervision. Dysphagia agricultural mechanic al altered soft chopped. Thin liquids. [...] this chart may have been created with NeuroQuest voice recognition software. Occasi onal wrong-word or [...] Forde MD - 02/12/2020 6:14 PM PDT [facility] [place] HOSPITAL[place] PROGRESS NOTE Patient: Ángela Crowley : 1930: Age: 89 y.o. MedRec: [id number] PCP: Candido Link MD Admission date: 02/09/2020 [...] x1 [address] or time. Passed STUDIO COORDINATOR evaluation with dysphagia diet ordered on 01/31 [...] stable, no chest pain during admission. 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 Will require upper GI workup per STUDIO COORDINATOR . Recommend reflux precautions and puree diet. [...] contamination Arcadio Black phone call he was [facility], is [address] [...] Septra Bruce Cochran MD 02/12/2020 6:15 PM [facility] (dot meyaddendum tdnorefesh nownorefresh) (dot meytime meycritical [...] good set up and intermittent supervision. Dysphagia agricultural mechanic al altered soft chopped. Thin liquids. [...] this chart may have been created with NeuroQuest voice recognition software. Occasi onal wrong-word or [...] MD - 02/11/2020 1:56 PM PDT . [place]OSPITAL[place] PROGRESS NOTE Patient: Ángela Crowley : 1930: Age: 89 y.o. MedRec: [id number] PCP: Candido Link MD Admission date: 02/09/2020 [...] x1 [address] or time. Passed STUDIO COORDINATOR evaluation with dysphagia diet ordered on 01/31 [...] stable, no chest pain during admission. 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 Will require upper GI workup per STUDIO COORDINATOR . Recommend reflux precautions and puree diet. [...] Arcadio Black 7th phone call he was [facility], is [address] [...] in place of Septr a Time spent qcuc-jb-xbsd with patient and/or delong unit time (of [...] Septra Bruce Cochran MD 02/11/2020 1:56 PM [facility] (dot meyaddendum tdnorefesh nownorefresh) (dot meytime meycritical [...] good set up and intermittent supervision. Dysphagia agricultural mechanic al altered soft chopped. Thin liquids. [...] this chart may have been created with NeuroQuest voice recognition software. Occasi onal wrong-word or [...] Justice D - 02/10/2020 11:33 AM PDT [place] HOSPITALIST PROGRESS NOTE Patient: Ángela Crowley : 1930: Age: 89 y.o. MedRec: [id number] PCP: Candido Link MD Admission date: 02/09/2020 [...] x[address] or time. Passed STUDIO COORDINATOR evaluation with dysphagia diet ordered on 01/31 [...] stable, no chest pain during admission. 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 Will require upper GI workup per STUDIO COORDINATOR . Recommend reflux precautions and puree diet. [...] Son Wayne 7th phone call he was [facility], is [address] [...] Sacral Decub and Septra Son Time spent yrsk-va-ydjk with patient and/or delong unit time (of which more than 50% was in c ounseling and/or coordination the patient's care as outlined above) in minutes exceeded 30 m inutes. Bruce Cochran MD 02/10/2020 11:34 AM [facility] (dot meyaddendum tdnorefesh nownorefresh) (myla morganytlazaro meycritical [...] good set up and intermittent supervision. Dysphagia agricultural mechanic al altered soft chopped. Thin liquids. [...] this chart may have been created with NeuroQuest voice recognition software. Occasi onal wrong-word or [...] | | 2019 | Visit | | [address] | | | | | | [place] | | | | | | [address] | | | | | | | | +--------+ + + + + | 04/11/ | Appointment | Radiology | Shawn Stratton | | | 2019 | | | MD [address] | | | | | | [address] [place] | | | | | | [place] [address] | | | | | | [phone] | | | | | | | | +--------+ + + + + | 04/13/ | Office | Cardiology | Shawn Stratton | | | 2020 | Visit | | MD [address] | | | | | | [address] [place] | | | | | | [place] [address] | | | | | | [phone] | | | | | | | [...] [address] | [place] | [phone] | | [facility] | | [address] | | | - LABORATORY | | [...] + | [facility] | [address] | [place] | [phone] | | [facility] | | [address] | | | - LABORATORY | | [...] mL/min/1.73m2 | [facility] | | | MONEGASQUE | RATE,ESTIMATED | | MEDICAL | | | | mL/min/1.27e3Exxb than | | CENTER - | | [...] [address] | [place] | [phone] | | [facility] | | [address] | | | - LABORATORY | | [...] + | [facility] | [address] | [place] | [phone] | | [facility] | | [address] | | | - LABORATORY | | [...] [address] | [place] | [phone] | | [facility] | | [address] | | | - LABORATORY | | [...] [address] | [place] | [phone] | | [facility] | | [address] | | | - LABORATORY | | [...] + | [facility] | [address] | [place] | [phone] | | [facility] | | [address] | | | - LABORATORY | | [...] [address] | [place] | [phone] | | [facility] | | [address] | | | - LABORATORY | | [...] | [address] | [place] | [phone] | | [facility] | | [address] | | | - LABORATORY | | [...] (H) | 9 - 23 mg/dL | [facility] | | | | | | [facility] | | | | | | MEDICAL | | | | | | CENTER - | | | | | | LABORATORY | | + + + + + + | Creatinine | 0.88 | 0.55 - 1.02 | [facility] | | | | | mg/dL | [facility] | | | | | | MEDICAL | | | | | | CENTER - | | | | | | LABORATORY | | + + + + + + | eGFR if not | >60Comment: GLOMERULAR | >=60 | [facility] | | | | FILTRATION | mL/min/1.73m2 | [facility] | | | MONEGASQUE | RATE,ESTIMATED | | MEDICAL | | | | mL/min/1.59w5Qtwg than | | CENTER - | | [...] + | [facility] | [address] | [place] | [phone] | | [facility] | | [address] | | | - LABORATORY | | [...] [address] | [place] | [phone] | | [facility] | | [address] | | | - LABORATORY | | [...] [address] | [place] | [phone] | | [facility] | | [address] | | | - LABORATORY | | [...] [address] | [place] | [phone] | | [facility] | | [address] | | | - LABORATORY | | [...] [address] | [place] | [phone] | | [facility] | | [address] | | | - LABORATORY | | [...] [address] | [place] | [phone] | | [facility] | | [address] | | | - LABORATORY | | [...] [address] | [place] | [phone] | | [facility] | | [address] | | | - LABORATORY | | [...] mL/min/1.73m2 | [facility] | | | MONEGASQUE | RATE,ESTIMATED | | MEDICAL | | | | mL/min/1.76p8Tbrk than | | CENTER - | | [...] [address] | [place] | [phone] | | [facility] | | [address] | | | - LABORATORY | | [...] [address] | [place] | [phone] | | [facility] | | [address] | | | - LABORATORY | | [...] + | [facility] | [address] | [place] | [phone] | | [facility] | | [address] | | | - LABORATORY | | [...] [address] | [place] | [phone] | | [facility] | | [address] | | | - LABORATORY | | [...] [address] | [place] | [phone] | | [facility] | | [address] | | | - LABORATORY | | [...] [address] | [place] | [phone] | | [facility] | | [address] | | | - LABORATORY | | [...] 360 (H)Comment: New | <100 pg/mL | [facility] | | | | method in use as of | | [facility] | | | | December 02, 2018. [...] | [address] | [place], [place] | [phone] | | [facility] | | [address] | | | - LABORATORY | | [...] [address] | [place] | [phone] | | [facility] | | [address] | | | - LABORATORY | | [...] + | [facility] | [address] | [place] | [phone] | | [facility] | | [address] | | | - LABORATORY | | [...] | GLOMERULAR FILTRATION | mL/min/1.73m2 | [facility] | | | MONEGASQUE | RATE,ESTIMATED | | MEDICAL | | | | mL/min/1.69c8Dzfz than | | CENTER - | | [...] 3.2 - 4.8 g/dL | [facility] | | | | | | [facility] | | | | | | MEDICAL [...] [address] | [place] | [phone] | | [facility] | | [address] | | | - LABORATORY | | [...] [address] | [place] | [phone] | | [facility] | | [address] | | | - LABORATORY | | [...] [address] | [place] | [phone] | | [facility] | | [address] | | | - LABORATORY | | [...] + | [facility] | [address] | [place] | [phone] | | [facility] | | [address] | | | - LABORATORY | | [...] + + | [facility] | [address] | [place] | [phone] | | [facility] | | [address] | | | - LABORATORY | | [...] [address] | [place] | [phone] | | [facility] | | [address] | | | - LABORATORY | | [...] | | | POC | | | [facility] | | | | | | MEDICAL [...] | + + + + + | [facility] | [address] | [place] | [phone] | | [facility] | | [address] | | | - LABORATORY | | [...] [address] | [place] | [phone] | | [facility] | | [address] | | | - LABORATORY | | [...] [address] | [place] | [phone] | | [facility] | | [address] | | | - LABORATORY | | [...] [address] | [place] | [phone] | | [facility] | | [address] | | | - LABORATORY | | [...] | 0.93 | 0.55 - 1.02 | [facility] | | | | | [...] | mL/min/1.73m2 | [facility] | | | MONEGASQUE | RATE,ESTIMATED | | MEDICAL | | | | mL/min/1.70m3Fgov than | | CENTER - | | [...] ST. | [address] | [place] | [phone] | | [facility] | | [address] | | | - LABORATORY | | [...] [address] | [place] | [phone] | | [facility] | | [address] | | | - LABORATORY | | [...] [address] | [place] | [phone] | | [facility] | | [address] | | | - LABORATORY | | [...] + | [facility] | [address] | [place] | [phone] | | [facility] | | [address] | | | - LABORATORY | | [...] [address] | [place] | [phone] | | [facility] | | [address] | | | - LABORATORY | | [...] 405 (H)Comment: New | <100 pg/mL | [facility] | | | | method in use as of | | [facility] | | | | December 02, 2018. [...] + | [facility] | [address] | [place] | [phone] | | [facility] | | [address] | | | - LABORATORY | | [...] | nRBC | | K/uL | [facility] | | | | | | MEDICAL [...] [address] | [place] | [phone] | | [facility] | | [address] | | | - LABORATORY | | [...] 9 - 23 mg/dL | [facility] | | | | | | [facility] | | | | | | MEDICAL | | | | | | CENTER - | | | | | | LABORATORY | | + + + + + + | Creatinine | 0.93 | 0.55 - 1.02 | [facility] | | | | | mg/dL | [facility] | | | | | | MEDICAL | | | | | | CENTER - | | | | | | LABORATORY | | + + + + + + | eGFR if not | 57 (L)Comment: | >=60 | [facility] | | | | GLOMERULAR FILTRATION | mL/min/1.73m2 | [facility] | | | MONEGASQUE | RATE,ESTIMATED | | MEDICAL | | | | mL/min/1.14q6Jsby than | | CENTER - | | [...] [address] | [place] | [phone] | | [facility] | | [address] | | | - LABORATORY | | [...] [address] | [place] | [phone] | | [facility] | | [address] | | | - LABORATORY | | [...] [address] | [place] | [phone] | | [facility] | | [address] | | | - LABORATORY | | [...] ST[facility] | [address] | [place], [place] | [phone] | | [facility] | | [address] | | | - LABORATORY | | [...] [address] | [place] | [phone] | | [facility] | | [address] | | | - LABORATORY | | [...] | [address] | [place] | [phone] | | [facility] | | [address] | | | - LABORATORY | | [...] + | [facility] | [address] | [place] | [phone] | | [facility] | | [address] | | | - LABORATORY | | [...] use as of December 02, | | [facility] | | | | 2018. Check reference [...] [address] | [place] | [phone] | | [facility] | | [address] | | | - LABORATORY | | [...] 1,058 (H)Comment: New | <100 pg/mL | [facility] | | | | method in use as of | | [facility] | | | | December 02, 2018. [...] [address] | [place] | [phone] | | [facility] | | [address] | | | - LABORATORY | | [...] | nRBC | | K/uL | [facility] | | | | | | MEDICAL [...] [address] | [place] | [phone] | | [facility] | | [address] | | | - LABORATORY | | [...] (H) | 9 - 23 mg/dL | [facility] | | | | | | [facility] | | | | | | MEDICAL | | | | | | CENTER - | | | | | | LABORATORY | | + + + + + + | Creatinine | 0.78 | 0.55 - 1.02 | [facility] | | | | | mg/dL | [facility] | | | | | | MEDICAL | | | | | | CENTER - | | | | | | LABORATORY | | + + + + + + | eGFR if not | >60Comment: GLOMERULAR | >=60 | [facility] | | | | FILTRATION | mL/min/1.73m2 | [facility] | | | MONEGASQUE | RATE,ESTIMATED | | MEDICAL | | | | mL/min/1.69e3Tdlh than | | CENTER - | | [...] + | [facility] | [address] | [place] | [phone] | | [facility] | | [address] | | | - LABORATORY | | [...] [address] | [place] | [phone] | | [facility] | | [address] | | | - LABORATORY | | [...] [address] | [place] | [phone] | | [facility] | | [address] | | | - LABORATORY | | [...] [address] | [place] | [phone] | | [facility] | | [address] | | | - LABORATORY | | [...] + | [facility] | [address] | [place] | [phone] | | [facility] | | [address] | | | - LABORATORY | | [...] | | POC | | | [facility] | | | | | | MEDICAL [...] + | [facility] | [address] | [place] | [phone] | | [facility] | | [address] | | | - LABORATORY | | | | + + + + + Red Blood Cells (PRBC) - Crossmatch (02/17/2020 11:37 AM PDT) + + + + + + | Component | Value | Ref Range | Performed | Pathologist | | | | | At | Signature | + + + + + + | Product | [id number] | | [facility] | | | Code | | | [facility] | | | | | | MEDICAL | | | | | | CENTER - | | | | | | BLOOD BANK | | + + + + + + | UNIT # | [id number] | | [facility] | | | | [...] + + + + | Blood | [id number] | | [facility] | | | Product [...] + | [facility] | [address] | [place] | | | [facility] | | [address] | | | - BLOOD BANK | [...] [address] | [place] | [phone] | | [facility] | | [address] | | | - LABORATORY | | [...] [facility] | | [address] | | | - BLOOD BANK | [...] | [address] | [place] | [phone] | | [facility] | | [address] | | | - LABORATORY | | [...] | nRBC | | K/uL | [facility] | | | | | | MEDICAL [...] [address] | [place] | [phone] | | [facility] | | [address] | | | - LABORATORY | | [...] (H) | 9 - 23 mg/dL | [facility] | | | | | | [facility] | | | | | | MEDICAL | | | | | | CENTER - | | | | | | LABORATORY | | + + + + + + | Creatinine | 0.80 | 0.55 - 1.02 | [facility] | | | | | mg/dL | [facility] | | | | | | MEDICAL | | | | | | CENTER - | | | | | | LABORATORY | | + + + + + + | eGFR if not | >60Comment: GLOMERULAR | >=60 | [facility] | | | | FILTRATION | mL/min/1.73m2 | [facility] | | | MONEGASQUE | RATE,ESTIMATED | | MEDICAL | | | | mL/min/1.26b1Ckkm than | | CENTER - | | [...] + | [facility] | [address] | [place] | [phone] | | [facility] | | [address] | | | - LABORATORY | | [...] [address] | [place] | [phone] | | [facility] | | [address] | | | - LABORATORY | | [...] [address] | [place] | [phone] | | [facility] | | [address] | | | - LABORATORY | | [...] | [address] | [place], [place] | [phone] | | [facility] | | [address] | | | - LABORATORY | | [...] | | | | ovatusComment: | | [facility] | | | Beta-lactamase | | [...] [address] | [place] | [phone] | | [facility] | | [address] | | | - LABORATORY | | [...] [address] | [place] | [phone] | | [facility] | | [address] | | | - LABORATORY | | [...] [address] | [place] | [phone] | | [facility] | | [address] | | | - LABORATORY | | [...] | | POC | | | [facility] | | | | | | MEDICAL [...] [address] | [place] | [phone] | | [facility] | | [address] | | | - LABORATORY | | [...] [address] | [place] | [phone] | | [facility] | | [address] | | | - LABORATORY | | [...] | | | | g/dL | [facility] | | | | [...] | [address] | [place], [place] | [phone] | | [facility] | | [address] | | | - LABORATORY | | [...] + | [facility] | [address] | [place] | [phone] | | [facility] | | [address] | | | - LABORATORY | | [...] mL/min/1.73m2 | [facility] | | | MONEGASQUE | RATE,ESTIMATED | | MEDICAL | | | | mL/min/1.27j8Nghs than | | CENTER - | | [...] [address] | [place] | [phone] | | [facility] | | [address] | | | - LABORATORY | | [...] + | [facility] | [address] | [place] | [phone] | | [facility] | | [address] | | | - LABORATORY | | [...] + | [facility] | [address] | [place] | [phone] | | [facility] | | [address] | | | - LABORATORY | | [...] | [address] | [place], [place] | [phone] | | [facility] | | [address] | | | - LABORATORY | | [...] + | [facility] | [address] | [place] | [phone] | | [facility] | | [address] | | | - LABORATORY | | [...] | [address] | [place], [place] | [phone] | | [facility] | | [address] | | | - LABORATORY | | [...] mL/min/1.73m2 | [facility] | | | MONEGASQUE | RATE,ESTIMATED | | MEDICAL | | | | mL/min/1.36o4Zchx than | | CENTER - | | [...] [address] | [place] | [phone] | | [facility] | | [address] | | | - LABORATORY | | [...] [address] | [place] | [phone] | | [facility] | | [address] | | | - LABORATORY | | [...] [address] | [place] | [phone] | | 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 | | [address] | | | - LABORATORY | | [...] + | [facility] | [address] | [place] | [phone] | | [facility] | | [address] | | | - LABORATORY | | [...] 501 (H)Comment: New | <100 pg/mL | [facility] | | | | method in use as of | | [facility] | | | | December 02, 2018. [...] [address] | [place] | [phone] | | [facility] | | [address] | | | - LABORATORY | | [...] [address] | [place] | [phone] | | [facility] | | [address] | | | - LABORATORY | | [...] mL/min/1.73m2 | [facility] | | | MONEGASQUE | RATE,ESTIMATED | | MEDICAL | | | | mL/min/1.04q3Mamb than | | CENTER - | | [...] + | [facility] [facility] | [address] | [place] | [phone] | | [facility] | | [address] | | | - LABORATORY | | [...] + | [facility] [facility] | [address] | [place], [place] | [phone] | | [facility] | | [address] | | | - LABORATORY | | [...] [address] | [place] | [phone] | | [facility] | | [address] | | | - LABORATORY | | [...] + | [facility] | [address] | [place] | [phone] | | [facility] | | [address] | | | - LABORATORY | | [...] method in use as of | | [facility] | | | | December 02, 2018. [...] [address] | [place] | [phone] | | [facility] | | [address] | | | - LABORATORY | | [...] (H) | 9 - 23 mg/dL | [facility] | | | | | | [facility] | | | | | | MEDICAL | | | | | | CENTER - | | | | | | LABORATORY | | + + + + + + | Creatinine | 1.00 | 0.55 - 1.02 | [facility] | | | | | mg/dL | [facility] | | | | | | MEDICAL | | | | | | CENTER - | | | | | | LABORATORY | | + + + + + + | eGFR if not | 52 (L)Comment: | >=60 | [facility] | | | | GLOMERULAR FILTRATION | mL/min/1.73m2 | [facility] | | | MONEGASQUE | RATE,ESTIMATED | | MEDICAL | | | | mL/min/1.99p0Cioe than | | CENTER - | | [...] + | [facility] | [address] | [place] | [phone] | | [facility] | | [address] | | | - LABORATORY | | [...] [address] | [place] | [phone] | | [facility] | | [address] | | | - LABORATORY | | [...] [address] | [place] | [phone] | | [facility] | | [address] | | | - LABORATORY | | [...] | | | | | mg/dL | [facility] | | | | | | MEDICAL | | | | | | CENTER - | | | | | | LABORATORY | | + + + + + + | eGFR if not | 57 (L)Comment: | >=60 | [facility] | | | | GLOMERULAR FILTRATION | mL/min/1.73m2 | [facility] | | | MONEGASQUE | RATE,ESTIMATED | | MEDICAL | | | | mL/min/1.82e4Mcws than | | CENTER - | | [...] | | | | | mg/dL | [facility] | | | | | | MEDICAL [...] [address] | [place] | [phone] | | [facility] | | [address] | | | - LABORATORY | | [...] | | | POC | | | [facility] | | | | | | MEDICAL [...] + | [facility] | [address] | [place] | [phone] | | [facility] | | [address] | | | - LABORATORY | | [...] [address] | [place] | [phone] | | [facility] | | [address] | | | - LABORATORY | | [...] [address] | [place] | [phone] | | [facility] | | [address] | | | - LABORATORY | | [...] [address] | [place] | [phone] | | [facility] | | [address] | | | - LABORATORY | | [...] [address] | [place] | [phone] | | [facility] | | [address] | | | - LABORATORY | | [...] [address] | [place] | [phone] | | [facility] | | [address] | | | - LABORATORY | | [...] [address] | [place] | [phone] | | [facility] | | [address] | | | - LABORATORY | | [...] [address] | [place] | [phone] | | [facility] | | [address] | | | - LABORATORY | | [...] [address] | [place] | [phone] | | [facility] | | [address] | | | - LABORATORY | | [...] method in use as of | | [facility] | | | | December 02, 2018. [...] | [address] | [place], [place] | [phone] | | [facility] | | [address] | | | - LABORATORY | | [...] + | [facility] | [address] | [place] | [phone] | | [facility] | | [address] | | | - LABORATORY | | [...] [address] | [place] | [phone] | | [facility] | | [address] | | | - LABORATORY | | [...] [address] | [place] | [phone] | | [facility] | | [address] | | | - LABORATORY | | [...] | [address] | [place], [place] | [phone] | | [facility] | | [address] | | | - LABORATORY | | [...] | mL/min/1.73m2 | [facility] | | | MONEGASQUE | RATE,ESTIMATED | | MEDICAL | | | | mL/min/1.05f8Tirf than | | CENTER - | | [...] + | [facility] | [address] | [place] | [phone] | | [facility] | | [address] | | | - LABORATORY | | [...] [address] | [place] | [phone] | | [facility] | | [address] | | | - LABORATORY | | [...] | | | POC | | | [facility] | | | | [facility]ICAL [...] [address] | [place] | [phone] | | [facility] | | [address] | | | - LABORATORY | | [...] [address] | [place] | [phone] | | [facility] | | [address] | | | - LABORATORY | | [...] + | [facility] | [address] | [place] | [phone] | | [facility] | | [address] | | | - LABORATORY | | [...] [address] | [place] | [phone] | | [facility] | | [address] | | | - LABORATORY | | [...] [address] | [place] | [phone] | | [facility] | | [address] | | | - LABORATORY | | [...] | + + + + + | [facility] [facility] | [address] | [place] | [phone] | | [facility] | | [address] | | | - LABORATORY | | [...] [address] | [place] | [phone] | | [facility] | | [address] | | | - LABORATORY | | [...] ST. | [address] | [place] | [phone] | | [facility] | | [address] | | | - LABORATORY | | [...] [facility] | | [address] | | | - BLOOD BANK | [...] + | [facility] | [address] | [place] | [phone] | | [facility] | | [address] | | | - LABORATORY | | [...] | mL/min/1.73m2 | [facility] | | | MONEGASQUE | RATE,ESTIMATED | | MEDICAL | | | | mL/min/1.12o9Dzqh than | | CENTER - | | [...] | [address] | [place], [place] | [phone] | | [facility] | | [address] | | | - LABORATORY | | [...] + + | Card Lot # | [id number] | | | | + + + [...] + | [facility] [facility] | [address] | [place] | [phone] | | [facility] | | [address] | | | - LABORATORY | | [...] [address] | [place] | [phone] | | [facility] | | [address] | | | - LABORATORY | | [...] [address] | [place] | [phone] | | [facility] | | [address] | | | - LABORATORY | | [...] not | 51 (L)Comment: | >=60 | [facility] | | | | GLOMERULAR FILTRATION | mL/min/1.73m2 | [facility] | | | MONEGASQUE | RATE,ESTIMATED | | MEDICAL | | | | mL/min/1.25a5Bxcr than | | CENTER - | | [...] + | [facility] [facility] | [address] | [place] | [phone] | | [facility] | | [address] | | | - LABORATORY | | [...] [address] | [place] | [phone] | | [facility] | | [address] | | | - LABORATORY | | [...] conveyed to the ordering provider, by the accounts receivable representative, immediately | | | following the exam. [...] to the ordering provider, by the | |accounts receivable representative, immediately following the exam. 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[facility]) Acute on chronic | | combined systolic [...] | | | DAILY, First dose on [facility] 02/10/20 | | AM PDT | | [...] ion | | | | dose on [facility] 02/10/20 at 0900, Apply | | | [...] | | | First dose on [facility] 02/10/20 at 0245 | | | | [...] | | | First dose on [facility] 02/10/20 at 0245, | | | | [...] | | | First dose on [facility] 02/10/20 at 0245 | | | | [...] | | | | dose on [facility] 02/10/20 at 0210 | | | | [...] | | | First dose on [facility] 02/10/20 at 0400 | | AM PDT [...] | | | | | | | 4295-6101 Use NIGHT DOSE for | | | | | | | doses scheduled: HS, | | | | | | | Nighttime 9712-8096 If the BG is | | | [...] | | | | NOT store in [facility]itro Patient | | | | | | | Specific Bin. RETURN TO PATIENT | | | | | | | AT DISCHARGE. Verified Brovana #6 | | | | | | | vials by Pharmacist Shaji Gilse | | | | | | | Aaron, Marketing Account Manager | | | | | | | [...] | | | | | | Non-Formulary: retirement medicine | | | | | | [...] | | | First dose on [facility] 02/10/20 at 0900 | | | | [...] | | | | dose on [facility] 02/10/20 at 0900 | | AM PDT [...] | | | | last modification) on [facility] 02/13/20 | | | | | | [...] | | | | | modification) on [facility] 02/21/20 at | | | | | [...] | | | | last modification) on [facility] 02/24/20 | | | | | | [...]
--- OUTSIDE RECORDS SUMMARY | ~2020-03-14 | XMS | Encounter Summary ---
Demographics + + + | Address | [address] | | | [place] [address] | + + + | Home Phone [...] Team Providers + +------+ + | Care Balance Wheel Arm Burnisher Name | Role | Phone | + [...] | | [address] [place] | [facility] [address] | | | | | [place] [address] | | | | | | [phone] | | | +--------+ + + + [...] | | 2019 | Visit | | STRATEGY LEAD [address] | | | | | | [place] | | | | | | [address] | | | | | | | | +--------+ + + + + | 04/11/ | Appointment | Radiology | Shawn Michael | | | 2019 | | | MD [address] | | | | | | [address] [place] | | | | | | [place], [place] [address] | | | | | | [phone] | | | | | | | | +--------+ + + + + | 04/13/ | Office | Cardiology | Shawn Michael | | 2019 | Visit | | MD [address] | | | | | | [address] [place] | | | | | | [place] [address] | | | | | | [phone] | | | | | | | [...]
--- OUTSIDE RECORDS SUMMARY | ~2020-03-14 | XMS | Encounter Summary ---
Demographics + + + | Address | [address] | | | [place] [address] | + + + | Home Phone [...] Team Providers + +------+ + | Care Terrazzo Roller Name | Role | Phone | [...] | 07/02/ | Home Care | PROV [place]DE[place] | Bernardo Souza | OT REPEAT VISIT | | 2018 | Visit | [place] [address] | [place]ANN | | | | | ST [place] | | | | | | [address] | | | | | | [phone] | | | +--------+ + + + [...] + + | Pulse | 100 | 07/02/2019 10:44 AM | | | | | PDT | | + + + + + | Temperature | 36.2 C (97.1 F) | 07/02/2019 10:44 AM | | | | | PDT | | + + + + + | Respiratory Rate | - | - | | + + + + + | Oxygen Saturation | 96% | 07/02/2019 10:44 AM | | | | | PDT [...] [place] | | | | | | [id number] | | | | | | | | +--------+ + + + + | 04/11/ | Appointment | Radiology | Shawn Michael | | | 2019 | | | MD Marcel[address] | | | | | [address] | | | | | | [place] [address] | | | | | | [phone] | | | | | | | | +--------+ + + + + | 04/13/ | Office | Cardiology | Shawn Michael | | | 2020 | Visit | | MD Marcelino [address] | | | | | [address] | | | | | | [place] [address] | | | | | | [phone] | | | | | | | [...] + +--------+--------+ + + | HH OT DYSPNEA | Dyspnea | | | 1 [...] + + +--------+-------+ + | HH OT DYSPNEA | HH OT DYSPNEA | | No | | | Description: The | | | | | | patient and/or | | | | | | caregiver will | | | | | | verbalize | | | | | | understanding and | | | | | | energy conservation | | | | | | and pacing to | | | | | | control dyspnea with | | | | | | activity., Notify | | | | | | MD if oxygen | | | | | | saturation is less | | | | | | than 90%. Outcomes: | | | | | | The patient will be | | | | | | able to complete | | | | | | ADLs [...] | | + + +--------+--------+ + | Cardiopulmonary | Problem: HH OT | | | OT instructed patient | | Training | DYSPNEAGoal: OT | Comple | | on cardiopulmonary | | Description: | DYSPNEA | yoel | | exercises. | | Instruct in breath | | | | | | control during | | | | | | functional mobility, | | | | | | ADLs, and at rest | | | | | | if needed. Instruct | | | | | | in strategies to | | | | | | decrease dyspnea, | | | | | | conserve energy, and | | | | | | a home exercise | | | | | | program for | | | | | | breathing exercises. | | | | | + + +--------+--------+ + documented in this encounter"
--- OUTSIDE RECORDS SUMMARY | ~2020-03-14 | XMS | Encounter Summary ---
Demographics + + + | Address | [address] | | | [place] [address] | + + + | Home Phone [...] Team Providers + +------+ + | Care Market Researcher Name | Role | Phone | [...] | | | | [address] | [address] | | | | | | [place], | Phone: | | | | | | [place] | [phone] | | | | | | [address] | Fax: | | | | | | Phone: | [phone] | | | | | | [phone] | | | | | | | Fax: | | | | | | | [phone] | | +--------+ + + + + [...] | | | | [address] | [address] Phone: | | | | | | [place], | [phone] | | | | | | [place] | Fax: | | | | | | [address] | [phone] | | | | | | Phone: | | | | | | | [phone] | | | | | | | Fax: | | | | | | | [phone] | | + + + + + [...] Therapy / | Generalized | Yana-Tajt | [place] | | | Required | Rehabilitatio | | i, | Therapy [address]25 | | | | n | osteoarthrit | [place] | [address] | | | | | is | , MD [address] | [place], | | | | | Procedures | [address] | [place] [address] | | | | | PT | [place], | Phone: | | | | | | [place] | [phone] | | | | | | [address] | Fax: | | | | | | Phone: | [phone] | | | | | | [phone] | | | | | | | Fax: | | | | | | | [phone] | | +--------+ + + + + [...] | (transcathet | i, | [address] | | | | | er aortic | Cand[place] | [place], | | | | | valve | , MD [address] | [place] | | | | | replacement) | [address] | [address] | | | | | , | [place], | Phone: | | | | | bioprostheti | [place] | [phone] | | | | | c Acute on | [address] | Fax: | | | | | chronic | Phone: | [phone] | | | | | systolic | [phone] | | | | | | heart | Fax: | | | | | | failure | [phone] | | | | | | (HCC) | | | | | | | Procedures | | | | | | | FILE SYSTEM INSTALLER | | | + + + + [...] | | | | , [address] | [place] [address] | | | | | | [address] | Phone: | | | | | | [place], | [phone] | | | | | | [place] | Fax: | | | | | | [address] | [phone] | | | | | | Phone: | | | | | | | [phone] | | | | | | | Fax: | | | | | | | [phone] | | + + + + + [...] + + | 07/15/ | Office | [facility] | Nikolay, | Generalized | | 2019 | Visit | MEDICINE [address] | MD Candido | osteoarthritis | | | | [address] [place] | [address] [facility] | (Primary Dx); [place] | | | | [place] [address] | [place] [address] | term prescription | | | | [phone] | [phone] | opiate use; S/p TAVR | | [...] her to a pain clinic in the [facility] where she resid es and she has [...] Pain. Dispense: 120 tablet; Refill: 0 2. senior care prescription opiate use -We will follow-up with pain clinic in [place] as above. 3. S/p TAVR (transcatheter aortic valve replacement), bioprosthetic - * [facility] Cardiology - AMB Referral; Future 4. Acute on chronic systolic heart failure (HCC) - * [facility] [place] [facility] - AMB Referral; Future 5. Impaired mobility 6. Detrusor dysfunction - * [facility] [place] Urology - AMB Referral; Future 7. Centrilobular emphysema (HCC) - * [facility] [place] Pulmonary - AMB Referral 8. Onychomycosis - [facility] Podiatry - AMB Referral REVIEW OF SYSTEMS [...] Flex Sig; Surgeon: Edwin Stoddard MD; Location: [facility] PROCEDURE UNIT NIRMAL AND BSO TONSILLECTOMY AND ADENOIDECTOMY UPPER GASTROINTESTINAL ENDOSCOPY N/A 06/07/2019 Procedure: EGD; Surgeon: Edwin Stoddard MD; Location: [facility] MEDICAL PROCEDURE UNIT CURRENT MEDICATIONS Current [...] 1. Parts of this documentwere created using [employer] speech recognition software. As a resu lt, [...] [place] | | | | | | [address] | | | | | | | | +--------+ + + + + | 04/11/ | Appointment | Radiology | Shawn Michael | | 2019 | | | MD Marcelino [address] | | | | | [address] | | | | | | [place] [address] | | | | | | [phone] | | | | | | | | +--------+ + + + + | 04/13/ | Office | Cardiology | Shawn Michael | | | 2019 | Visit | | MD Marcelino [address] | | | | | [address] [place] | | | | | | [place] [address] | | | | | | [phone] | | | | | | | [...] | + + +--------+ + + | [place] | Outpatient | Routin | Onychomycosis | Ordered: 07/15/2019 | | Clinic Podiatry - | Referral | e | | | | AMB Referral | | | | | + + +--------+ + + documented as of this encounter Visit Diagnoses + + | Diagnosis | + + | 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
--- OUTSIDE RECORDS SUMMARY | ~2020-03-14 | XMS | Encounter Summary ---
Demographics + + + | Address | [address] | | | [place] [address] | + + + | Home Phone [...] Providers + +------+ + | Care Principal Web Developer Name | Role | Phone | + +------+ + | Candido Link | PCP | | | MD | | | + +------+ + Reason for Visit + + + | Reason | Comments | + + + | Pain Management | | + + + | Weight Loss | she was not eating well, she also had a lot of sweets, but she is | | | now on track. | + + + Encounter Details +--------+---------+ + + + | Date | Type | Department | Care Team | Description | +--------+---------+ + + + | 10/14/ | Office | [facility] | Nikolay, | Generalized | | 2020 | Visit | MEDICINE [address] | MD Candido | osteoarthritis | | | | [address] [place] | [address] [place] | (Primary Dx); Long | | | | [place] [address] | [place] [address] | term prescription | | | | [phone] | [phone] | opiate use; Anxiety; | | | | | | Anemia due to other | | | | | | cause, not | | | | | | classified; B12 | | | | | | deficiency; | | | | | | Pulmonary | | | | | | hypertension, mild | | | | | | ([facility]); Julienne garzon | +--------+---------+ + + + Social History [...] + | Blood Pressure | 120/60 | 10/14/2019 12:43 PM | | | | | PST | | + + + + + | Pulse | 96 | 10/14/2019 12:43 PM | | | | | PST | | + + + + + | Temperature | 36.9 C (98.4 F) | 10/14/2019 12:43 PM | | | | | PST | | + + + + + | Respiratory Rate | 16 | 10/14/2019 12:43 PM | | | | | PST | | + + + + + | Oxygen Saturation | 96% | 10/14/2019 12:43 PM | | | | | PST | | + + + + + | Inhaled Oxygen | - | - | | | Concentration | | | | + + + + + | Weight | 53.3 kg (117 lb 8.1 | 10/14/2019 12:43 PM | | | | oz) | PST | | + + + + + | Height | 165.1 cm (5' 5") | 10/14/2019 12:43 PM | | | | | PST | | + + + + + | Body Mass Index | 19.55 | 10/14/2019 12:43 PM | | | | | PST | | + + + + + documented in this encounter Progress Notes Candido Link MD - 10/14/2019 12:45 PM PSTFormatting of this note might be d ifferent from the original. CHIEF COMPLAINT Chief Complaint Patient presents with Pain Management Weight Loss she was not eating well, she also had a lot of sweets, but she is now on track. HPI Ángela Crowley is a 89 y.o. y/o female who presents today for several issues: She has history of generalized osteoarthritis and has been on chronic opiate therapy for a number of years for chronic pain. After she establish care with me I had her go and be eval uated by a pain specialist in [facility] and they have recommended she continues on h er current regimen. She would rather have her medications refilled in our office and it is quite a trip for her to go to [facility], more than [address] No alcohol or illicit d rug use. No drowsiness or confusion. She did have a fall recently when she tripped in her oxygen line and she landed on her elizabeth om. No lasting injuries. She also has history of anxiety and used to be on lorazepam. We discontinue that when that I agreed to take over her pain medication and under the recommendation of her pain doctor. She is on buspirone with reasonable relief and she would like a refill on that. She also has history of B12 deficiency and would like to have a level checked. She has a rash in the lower abdominal in the skin folds and she would like to have that kandis ated if possible. LABS WBC Date Value Ref Range Status 10/14/2019 12.7 (H) 4.0 - 11.0 K/uL Final 09/08/2019 7.9 4.0 - 11.0 K/uL Final RBC Date Value Ref Range Status 10/14/2019 3.11 (L) 3.70 - 5.20 M/uL Final 09/08/2019 3.03 (L) 3.70 - 5.20 M/uL Final Hemoglobin Date Value Ref Range Status 10/14/2019 9.2 (L) 11.5 - 16.0 g/dL Final 09/08/2019 8.6 (L) 11.5 - 16.0 g/dL Final Hematocrit Date Value Ref Range Status 10/14/2019 29.4 (L) 34.0 - 47.0 % Final 09/08/2019 29.4 (L) 34.0 - 47.0 % Final MCV Date Value Ref Range Status 10/14/2019 94.5 83.0 - 101.0 fL Final 09/08/2019 97.0 83.0 - 101.0 fL Final RDW-SD Date Value Ref Range Status 10/14/2019 56.9 (H) 35.1 - 46.3 fL Final 09/08/2019 57.9 (H) 35.1 - 46.3 fL Final Platelet Count Date Value Ref Range Status 10/14/2019 242 140 - 440 K/uL Final 09/08/2019 179 140 - 440 K/uL Final Na Date Value Ref Range Status 10/14/2019 143 136 - 145 mmol/L Final 09/08/2019 144 136 - 145 mmol/L Final K Date Value Ref Range Status 10/14/2019 3.6 3.4 - 5.1 mmol/L Final 09/08/2019 4.5 3.4 - 5.1 mmol/L Final Chloride, POC Date Value Ref Range Status 05/31/2019 109 98 - 109 mEq/L Final Cl Date Value Ref Range Status 10/14/2019 106 98 - 107 mmol/L Final 09/08/2019 108 (H) 98 - 107 mmol/L Final CO2 Date Value Ref Range Status 10/14/2019 30 20 - 31 mmol/L Final 09/08/2019 33 (H) 20 - 31 mmol/L Final Anion Gap Date Value Ref Range Status 10/14/2019 7 3 - 16 mmol/L Final 09/08/2019 3 3 - 16 mmol/L Final Glucose Date Value Ref Range Status 10/14/2019 103 60 - 106 mg/dL Final 09/08/2019 79 60 - 106 mg/dL Final BUN Date Value Ref Range Status 10/14/2019 22 9 - 23 mg/dL Final 09/08/2019 18 9 - 23 mg/dL Final Creatinine Date Value Ref Range Status 10/14/2019 0.82 0.55 - 1.02 mg/dL Final 09/08/2019 0.63 0.55 - 1.02 mg/dL Final Creatinine, POC Date Value Ref Range Status 05/31/2019 1.0 0.6 - 1.3 mg/dL Final Calcium Date Value Ref Range Status 10/14/2019 8.7 8.7 - 10.4 mg/dL Final 09/08/2019 8.4 (L) 8.7 - 10.4 mg/dL Final Magnesium Date Value Ref Range Status 09/05/2019 2.0 1.6 - 2.6 mg/dL Final 09/02/2019 1.9 1.6 - 2.6 mg/dL Final Albumin Date Value Ref Range Status 10/14/2019 2.9 (L) 3.2 - 4.8 g/dL Final 09/05/2019 2.9 (L) 3.2 - 4.8 g/dL Final Albumin/Globulin Ratio Date Value Ref Range Status 10/14/2019 1.3 0.8 - 1.9 Final 09/05/2019 1.5 0.8 - 1.9 Final Globulin Date Value Ref Range Status 10/14/2019 2.3 2.1 - 3.8 g/dL Final 09/05/2019 2.0 (L) 2.1 - 3.8 g/dL Final Alkaline Phosphatase Date Value Ref Range Status 10/14/2019 115 46 - 116 U/L Final 09/05/2019 92 46 - 116 U/L Final ALT Date Value Ref Range Status 10/14/2019 11 10 - 49 U/L Final 09/05/2019 18 10 - 49 U/L Final AST Date Value Ref Range Status 10/14/2019 18 0 - 34 U/L Final 09/05/2019 14 0 - 34 U/L Final Bilirubin Total Date Value Ref Range Status 10/14/2019 0.7 0.3 - 1.2 mg/dL Final 09/05/2019 0.4 0.3 - 1.2 mg/dL Final ASSESSMENT & PLAN 1. Generalized osteoarthritis 2. joint terminal attack controller prescription opiate use -We will continue with current opioid regimen. Discussed risk of falls and sedation. Will hold dose if she feels overly sedated or tired. 3. Anxiety - busPIRone (BUSPAR) 15 mg tablet; Take 1 tablet by mouth 3 times daily as needed. Dispens e: 90 tablet; Refill: 3 4. Anemia due to other cause, not classified - CBC with Differential; Future 5. B12 deficiency - CBC with Differential; Future - Vitamin B-12; Future 6. Tinea cruris - ketoconazole (NIZORAL) 2% cream; Apply topically 2 times daily. Dispense: 30 g; Refill: 2 REVIEW OF SYSTEMS Constitutional: No Weight Change, [...] Hematuria. Musculoskeletal: Multiple arthralgias, No Myalgias. Skin: lower abd rash and bruise in the sacral area Neuro: No Weakness, No Numbness, No Headache. Psych: No Anxiety/Panic, No Depression. Heme/Lymph: No Bruising, No Bleeding. Endocrine: No Polyuria, No Polydipsia, No Temperature Intolerance. PHYSICAL EXAM VITAL SIGNS: BP 120/60 | Pulse 96 | Temp 36.9 C (98.4 F) (Temporal) | Resp 16 | Ht 1.651 m (5' 5") | Wt 53.3 kg (117 lb 8.1 oz) | SpO2 96% | No | BMI 19.55 k g/m Constitutional: Thin, on oxygen, No acute distress, Pleasant female. HENT: Normocephalic, Atraumatic, Bilateral external ears normal, Oropharynx with no erythma , No oral exudates, Nose normal. Cardiovascular: Regular rate & rhythm, No murmurs, No rubs, No gallops. No lower extremitie s edema. Thorax & Lungs: Normal chest, No respiratory distress, No crackles, wheezing, or rubs. Skin: Erythematous rash in the lower abdomen in the skin folds suggestive of tinea cruris. Bruise in the sacral area with no hematoma. Musculoskeletal: Decreased range of motion in all major joints. Using walker. 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 CHOLECYSTECTOMY COLONOSCOPY N/A 06/11/2019 Procedure: COLONOSCOPY-Possible Flex Sig; Surgeon: Edwin Stoddard MD; Location: [facility] HYSTERECTOMY NIRMAL AND BSO TONSILLECTOMY AND ADENOIDECTOMY UPPER GASTROINTESTINAL ENDOSCOPY N/A 06/07/2019 Procedure: EGD; Surgeon: Edwin Stoddard MD; Location: [facility] UPPER GASTROINTESTINAL ENDOSCOPY N/A 08/20/2019 Procedure: EGD; Surgeon: John Grimes MD; Location: [facility] CURRENT MEDICATIONS Current [...] Sulfa Antibiotics Unknown FOLLOW-UP Return in about 6 weeks (around 11/22/2019) for Medication refill. Notes: 1. Parts of this documentwere created using [employer] speech recognition software. As a resu [...] | | 2019 | Visit | | SALVAGE DETERMINER [address] | | | | | | [place] | | | | | | [id number] | | | | | | | | +--------+ + + + + | 04/11/ | Appointment | Radiology | Shawn Michael | | | 2019 | | | MD [address] | | | | | | [address] [place] | | | | | | [place] [address] | | | | | | [phone] | | | | | | | | +--------+ + + + + | 04/13/ | Office | Cardiology | Shawn Michael | | | 2019 | Visit | | MD [address] | | | | | | [address] [place] | | | | | | [place] [address] | | | | | | [phone] | | | | | | | | +--------+ + + + + documented as of this encounter Results Vitamin B-12 (10/14/2019 1:44 PM PST) + + + + + + | Component | Value | Ref Range | Performed | Pathologist | | | | | At | Signature | + + + + + + | VITAMIN | 527Comment: DEFICIENT: | 156 - 672 pg/mL | [...] + | [facility] | [address] | [place] | [phone] | | [facility] | | [address] | | | - LABORATORY | | | | + + + + + Comprehensive Metabolic Panel (10/14/2019 1:44 PM PST) + + + [...] | | | FILTRATION | mL/min/1.73m2 | [facility] | | | NIGERIAN | RATE,ESTIMATED | | MEDICAL | | | | mL/min/1.93o2Wkby than | | CENTER - | | [...] | 8.7 | 8.7 - 10.4 | [facility] | | | | | mg/dL | [facility] | | | | | | MEDICAL | | | | | | CENTER - | | | | | | LABORATORY | | + + + + + + | Albumin | 2.9 (L) | 3.2 - 4.8 g/dL | [facility] | | | | | | [facility] | | | | | | MEDICAL | | | | | | CENTER - | | | | | | LABORATORY | | + + + + + + | Bilirubin | 0.7 | 0.3 - 1.2 mg/dL | [facility] [...] + + + + | Alkaline | 115 | 46 - 116 U/L | [facility] [...] + + + + | BUN/Creatin | 26.8 | | [facility] | | | ine [...] [address] | [place] | [phone] | | [facility] | | [address] | | | - LABORATORY | | | | + + + + + CBC with Differential (10/14/2019 1:44 PM PST) + + + [...] + + + + | RDW-SD | 56.9 (H) | 35.1 - 46.3 fL | [facility] | | | | | | [facility] | | | | | | MEDICAL | | | | | | CENTER - | | | | | | LABORATORY | | + + + + + + | Platelet | 242 | 140 - 440 K/uL | [facility] [...] + + + + | % | 90.4 (H) | 45.0 - 82.0 % | [facility] | | | Neutrophils | | | [facility] | | | | | | MEDICAL | | | | | | CENTER - | | | | | | LABORATORY | | + + + + + + | % | 5.4 (L) | 20.0 - 45.0 % | [facility] | | | Lymphocytes | | | [facility] | | | | | | MEDICAL | | | | | | CENTER - | | | | | | LABORATORY | | + + + + + + | % Monocytes | 3.0 (L) | 4.0 - 12.0 % | [...] + + + + | Absolute | 11.44 (H) | 1.80 - 8.50 | [facility] | | | Neutrophils | | K/uL | [facility] | | | | | | MEDICAL | | | | | | CENTER - | | | | | | LABORATORY | | + + + + + + | Absolute | 0.68 | 0.60 - 3.20 | [facility] | | | Lymphocytes | | K/uL | [facility] | | | | | | MEDICAL | | | | | | CENTER - | | | | | | LABORATORY | | + + + + + + | Absolute | 0.38 | 0.00 - 1.00 | [facility] | [...] [address] | [place] | [phone] | | [facility] | | [address] | | | - LABORATORY | | | | + + + + + documented in this encounter Visit Diagnoses + + | Diagnosis | + + | Generalized osteoarthritis - Primary Generalized osteoarthrosis, unspecified site | + + | joint terminal attack controller prescription opiate use | + + | Anxiety Anxiety state, unspecified | + + | Anemia due to other cause, not classified | + + | B12 deficiency Other B-complex deficiencies | + + | Pulmonary hypertension, 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 | + + | Tinea cruris Dermatophytosis of groin and perianal area | + + documented in this encounter Additional Health Concerns + + + + | Infection | Noted Time | Resolved Time | + + + + | Methicillin-resistant Staphylococcus aureus | 06/08/2019 9:39 AM | | | | PDT | | + + + + documented as of this encounter
--- OUTSIDE RECORDS SUMMARY | ~2020-03-14 | XMS | Encounter Summary ---
Demographics + + + | Address | [address] | | | [place] [address] | + + + | Home Phone [...] | + + +---------+ + | Pee Perirn | ECON | Unknown | | + + +---------+ + | Laylajanelle Argueta | ECON | Unknown | | + + +---------+ + Care Team Providers + +------+ + | Care Speedometer Mechanic Name | Role | Phone | + [...] + + | 02/24/ | Telephone | [facility] | Kaylyn Rivas, | TCM - Hosp [facility] | | 2020 | | [facility] | RN | | | | | [address] | | | | | | [address] | | | | | | [place] [address] | | | | | | [phone] | | | +--------+ + + + [...] | 2019 | Visit | | MEDICAL MANAGEMENT SPECIALIST [address] | | | | | | [place] | | | | | | [address] | | | | | | | | +--------+ + + + + | 04/11/ | Appointment | Radiology | Shawn Michael | | | 2019 | | | MD [address] | | | | | | [address] [place] | | | | | | [place] [address] | | | | | | [phone] | | | | | | | | +--------+ + + + + | 04/13/ | Office | Cardiology | Shawn Michael | | | 2019 | Visit | | MD [address] | | | | | | [address] [place] | | | | | | [place] [address] | | | | | | [phone] | | | | | | | [...]
--- OUTSIDE RECORDS SUMMARY | ~2020-03-14 | XMS | Encounter Summary ---
Demographics + + + | Address | [address] | | | [place] [address] | + + + | Home Phone | | + + + | Preferred Language | Unknown | + + + | Marital Status | | + + + | Confucianism Affiliation | Unknown | + + + | Race | Unknown | + + + | Ethnic Group | Unknown | + + + Author + + + | Author | [facility] | | | and [place] | + + + | Organization | [facility] | | [...] Team Providers + +------+ + | Care Surgical Services Manager Name | Role | Phone [...] [place] | | | | | | [address] | | | | | | [phone] | | | +--------+ + + + [...] [place] | | | | | | [address] | | | | | | | | +--------+ + + + + | 04/11/ | Appointment | Radiology | Shawn Michael | | 2019 | | | MD Marcel[address] | | | | | | [address] | | | | | | [place] [address] | | | | | | [phone] | | | | | | | | +--------+ + + + + | 04/13/ | Office | Cardiology | Shawn Michael | | | 2020 | Visit | | MD [address] | | | | | | [address] | | | | | | [place] [address] | | | | | | [phone] | | | | | | | [...]
--- OUTSIDE RECORDS SUMMARY | ~2020-03-14 | XMS | Encounter Summary ---
Demographics + + + | Address | [address] | | | [place] [address] | + + + | Home Phone [...] Team Providers + +------+ + | Care Pie Filler Name | Role | Phone | + [...] Visit | [place] [address] | QUALITY ASSURANCE MANAGER [address] | | | | | [place] | [place] | | | | | [address] | [address] | | | | | [phone] | | | +--------+ + + + [...] | | 2019 | Visit | | PHOTOGRAPH RETOUCHER [address] | | | | | | [place] | | | | | | [address] | | | | | | | | +--------+ + + + + | 04/11/ | Appointment | Radiology | Shawn Michael | | | 2019 | | | MD [address] | | | | | | [address] [place] | | | | | | [place] [address] | | | | | | [phone] | | | | | | | | +--------+ + + + + | 04/13/ | Office | Cardiology | Shawn Michael | | | 2019 | Visit | | MD [address] | | | | | | [address] [place] | | | | | | [place] [address] | | | | | | [phone] | | | | | | | [...] hips. | | | | | | QUALITY ASSURANCE MANAGER notes ongoing | | | | | [...] therapeutic | Problem: PT | | | QUALITY ASSURANCE MANAGER instructed, | | exercise | IMPAIRED | [...] | Problem: HH SHARED | | | QUALITY ASSURANCE MANAGER educated pt on | | Prevention [...]
--- OUTSIDE RECORDS SUMMARY | ~2020-03-14 | XMS | Encounter Summary ---
Demographics + + + | Address | [address] | | | [place] [address] | + + + | Home Phone [...] Providers + +------+ + | Care Chief Steward/Stewardess Name | Role | Phone | + [...] + + | Closed | Specialty | Pain Medicine | Diagnoses | | [place] | | | Services | | Generalized | Yana-Tajt | PAIN | | | Required | | | i, | MANAGEMENT | | | | | osteoarthrit | Candido | [address] | | | | | is Srikanth | , MD [address] | [place], | | | | | term | [address] | [place] [address] | | | | | prescription | [place], | Phone: | | | | | opiate use | [place] | [phone] | | | | | | [address] | Fax: | | | | | | Phone: | [phone] | | | | | | [phone] | | | | | | | Fax: | | | | | | | [phone] | | +--------+ + + + + + Evaluate & Treat (Routine) +--------+ + + + + + | Status | Reason | Specialty | Diagnoses / | Referred By | Referred To | | | | | Procedures | Contact | Contact | +--------+ + + + + + | Closed | Specialty | Home Health | Diagnoses | | Prov Hh | | | Services | Services | Generalized | Yana-Tajt | [place] | | | Required | | | i, | [address] | | | | | osteoarthrit | [address] | [address] [place] | | | | | is Long | , MD [address] | [place], [place] | | | | | term | [address] | [address] | | | | | prescription | [place] [facility], | Phone: | | | | | opiate use | [place] | [phone] | | | | | COPD, | [address] | Fax: | | | | | severe (HCC) | Phone: | [phone] | | | | | Oxygen | [phone] | | | | | | dependent | Fax: | | | | | | Urinary | [phone] | | | | | | frequency | | | | | | | Acute on | | | | | | | chronic | | | | | | | diastolic | | | | | | | heart | | | | | | | failure | | | | | | | (HCC) S/p | | | | | | | TAVR | | | | | | | (transcathet | | | | | | | er aortic | | | | | | | valve | | | | | | | replacement) | | | | | | | , | | | | | | | bioprostheti | | | | | | | c Impaired | | | | | | | mobility | | | +--------+ + + + + + Reason for Visit + + + | Reason | Comments | + + + | TCM - Hosp FU | | + + + | Medication Refill | | + + + Encounter Details +--------+---------+ + + + | Date | Type | Department | Care Team | Description | +--------+---------+ + + + | 06/16/ | Office | [facility] | Nikolay, | Generalized | | 2019 | Visit | MEDICINE [address] | MD Candido | osteoarthritis | | | | [address] [place] | [address] [facility] | (Primary Dx); Long | | | | [place] [address] | [place] [address] | term prescription | | | | [phone] | [phone] | opiate use; COPD, | | | | | | severe (HCC); Oxygen | | | | | | dependent; Urinary | | | | | | frequency; Acute on | | | | | | chronic diastolic | | | | | | heart failure (HCC); | | | | | | S/p TAVR | | | | | | (transcatheter | | | | | | aortic valve | | | | | | replacement), | | | | | | bioprosthetic; | | | | | | Impaired mobility | +--------+---------+ + + + Social History [...] + | Blood Pressure | 100/60 | 06/16/2019 11:19 AM | | | | | PDT | | + + + + + | Pulse | 94 | 06/16/2019 11:19 AM | | | | | PDT | | + + + + + | Temperature | 36.8 C (98.2 F) | 06/16/2019 11:19 AM | | | | | PDT | | + + + + + | Respiratory Rate | 16 | 06/16/2019 11:19 AM | | | | | PDT | | + + + + + | Oxygen Saturation | 93% | 06/16/2019 11:19 AM | | | | | PDT | | + + + + + | Inhaled Oxygen | - | - | | | Concentration | | | | + + + + + | Weight | 55.7 kg (122 lb 12.7 | 06/16/2019 11:19 AM | | | | oz) | PDT | | + + + + + | Height | - | - | | + + + + + | Body Mass Index | 20.43 | 05/31/2019 7:00 PM | | | | | PDT | | + + + + + documented in this encounter Progress Notes Candido Link MD - 06/16/2019 11:00 AM PDTFormatting of this note might be d ifferent from the original. CHIEF COMPLAINT Chief Complaint Patient presents with [facility] - Hosp FU Medication Refill HPI Mahi Maureen Crowley is a 88 y.o. y/o female who presents today for establishing care and fo r a transitional care visit after she was recently hospitalized for acute congestive heart f ailure, moderate protein calorie malnutrition, closed nondisplaced fracture proximal phalanx of lesser toe of left foot secondary to a fall, hypoxia in the context of severe COPD on ch ronic oxygen therapy. Used to be anticoagulated and given her fall and head injury had a CT of the head which did not show any evidence of bleeding. Her anticoagulation was discontin ued. She had a TAVR procedure a few months ago in [place]. She states that over the last year she lost about 100 lbs. due to poor diet. Her son took her to leave with him in [facility], and he states her diet is a lot better and she start ed to gain some of the weight back. She states she is on Hydrocodone supervisor intermediates, for generalized osteoarthritis. She complains about pain in her left knee and lower back and she states she has had these symptoms for man y years. She has not had imaging of her left knee recently. While she was worked up in the hospital she had a CT of the abdomen that appeared to indica te the presence of a rectal mass. Subsequent colonoscopy showed severe diverticulosis with stenosis but no evidence of mass. She states her bowel movements have been formed and okay s nia discharge. She is taking senna. She was also treated with antibiotics while hospitalized and discharged on Augmentin for ev idence for lung infection. She is feeling better without. She has had some urinary frequency recently and her son would like her to have a urinalysis . She needs orders for oxygen as well as for home health for PT OT and nursing care. She also wants refill on most of her medications. She states she needs refill of hydrocodone also as she only has 4 tablets left. 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 HENT: Negative. Eyes: Negative. Respiratory: Positive for shortness of breath. Cardiovascular: Positive for leg swelling. Gastrointestinal: Negative. Endocrine: Negative. Genitourinary: Negative. Musculoskeletal: Positive for arthralgias. Skin: Negative. Allergic/Immunologic: Negative. Neurological: Negative. Hematological: Negative. Psychiatric/Behavioral: Negative. PAST MEDICAL HISTORY Past Medical History: Diagnosis [...] Last attempt to quit: 1969 Years since quittin.7 Smokeless tobacco: Never Used Substance and Sexual Activity Alcohol use: Never Frequency: Never SURGICAL HISTORY Past Surgical History: Procedure Laterality Date 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 CHOLECYSTECTOMY COLONOSCOPY N/A 06/11/2019 Procedure: COLONOSCOPY-Possible Flex Sig; Surgeon: Edwin Stoddard MD; Location: [facility] PROCEDURE UNIT NIRMAL AND BSO TONSILLECTOMY AND ADENOIDECTOMY UPPER GASTROINTESTINAL ENDOSCOPY N/A 06/07/2019 Procedure: EGD; Surgeon: Edwin Stoddard MD; Location: [facility] MEDICAL PROCEDURE UNIT CURRENT MEDICATIONS Current [...] 2 mLs by nebulization 2 times daily. 2 mL 3 aspirin 81 mg chewable tablet Take 1 tablet by mouth Daily. 30 tablet 3 atorvaSTATin (LIPITOR) 20 mg tablet Take 20 mg by mouth every morning. brimonidine (ALPHAGAN) 0.2% ophthalmic solution Place 1 drop into both eyes 2 times millie ly. 12 budesonide (PULMICORT) 0.5 mg/2 mL nebulizer solution Take 2 mLs by nebulization 2 time s daily. 2 mL 11 busPIRone (BUSPAR) 10 MG tablet Take 1 [...] the lungs Daily. 9 0 capsule 3 No current facility-administered medications for this visit. ALLERGIES Allergies Allergen Reactions Percocet [Oxycodone] Unknown Pregabalin Unknown Lyrica Sulfa Antibiotics Unknown PHYSICAL EXAM VITAL SIGNS: BP 100/60 | Pulse 94 | Temp 36.8 C (98.2 F) (Temporal) | Resp 16 | Wt 55.7 kg (122 lb 12.7 oz) | SpO2 93% | ? No | BMI 20.43 kg/m Constitutional: Elderly, frail, No acute distress, Pleasant [...] No masses, No HSM, no masses. Skin: Pale, No rash. Musculoskeletal: Decreased range of motion in all major joints. Some discomfort on palpati on of the left knee joint line especially at the medial aspect, no obvious effusion or redne ss or increased local temperature. Using walker for ambulation. Neurologic: Alert & oriented x 3, Normal motor function, Normal sensory function, No focal deficits noted. Psychiatric: Affect normal, Judgment normal, Mood normal. Results for SRIDEVI MAHI MAUREEN ( ) as of 06/16/2019 14:59 Ref. Range 06/16/2019 12:25 Color, UA Latest Ref Range: Light Yellow, Yellow, Straw Yellow Clarity, UA Latest Ref Range: Clear Clear Specific [place] Latest Ref Range: 1.001 - 1.030 1.008 pH, Urine Latest Ref Range: 5.0 - 8.0 6.0 Glucose, UA Latest Ref Range: Negative Negative Ketones, UA Latest Ref Range: Negative Negative Protein, UA Latest Ref Range: Negative Negative Blood, UA Latest Ref Range: Negative Small (A) Bilirubin, UA Latest Ref Range: Negative Negative Nitrite, UA Latest Ref Range: Negative Negative Urobilinogen, Urine Latest Ref Range: 0.2 mg/dL, 1.0 mg/dL, Negative Negative Leukocyte esterase, UA Latest Ref Range: Negative Negative WBC UA Latest Ref Range: 0 - 2 /HPF 0-2 RBC UA Latest Ref Range: 0 - 2 /HPF 15-25 (A) Squamous epithelial, UA Latest Ref Range: 0 - 2 /LPF 15-25 (A) BACTERIA UA Latest Ref Range: Negative /HPF Negative BUDDING YEAST UA Latest Ref Range: Negative Few (A) URINE COMMENT Unknown Urine Culture Not... ASSESSMENT & PLAN 1. Generalized osteoarthritis -I gave her a one-month refill of hYDROcodone-acetaminophen (NORCO) 7.5-325 mg per tablet; Take 1 tablet by mouth 4 times daily as needed for Pain. Dispense: 120 tablet; Refill: 0 -I told her son though to contact the [place] pain clinic in [facility] where her i nsurance with work to establish care with a pain specialist as I think she needs specialize d services for her chronic pain given all her comorbidities and the high risk of falls. - Home Health, External - AMB Referral 2. termite treater prescription opiate use - HYDROcodone-acetaminophen (NORCO) 7.5-325 mg per tablet; Take 1 tablet by mouth 4 times d aily as needed for Pain. Dispense: 120 tablet; Refill: 0 - Home Health, External - AMB Referral 3. COPD, severe (HCC) - oxygen; Inhale 3 L into the lungs continuous. ALETHEA: 99 months. Dispense: 1 Container; Ref ill: 2 - Home Health, External - AMB Referral 4. Oxygen dependent - oxygen; Inhale 3 L into the lungs continuous. ALETHEA: 99 months. Dispense: 1 Container; Ref ill: 2 - Home Health, External - AMB Referral 5. Urinary frequency - Urinalysis With Microscopic; Future - Home Health, External - AMB Referral - Urinalysis with Microscopic with Culture if Indicated 6. Acute on chronic diastolic heart failure (HCC) - Home Health, External - AMB Referral 7. S/p TAVR (transcatheter aortic valve replacement), bioprosthetic - Home Health, External - AMB Referral 8. Impaired mobility - Home Health, External - AMB Referral Urinalysis today is clear, no need for antibiotics. FOLLOW-UP Return in about 1 month (around 07/16/2019) for Medication refill. Note: Parts of this documentwere created using Dragon speech recognition software. As a r esult, there may be unintended word spelling errors. Every attempt was made to correct the dictation. Juan montoya in this encounter Plan of Treatment [...] | | | | | [place] [address] | | | | | | [phone] | | | | | | | | +--------+ + + + + | 04/13/ | Office | Cardiology | Shawn Michael | | | 2020 | Visit | | MD Marcelino [address] | | | | | | [address] [place] | | | | | | [place] [address] | | | | | | [phone] | | | | | | | | +--------+ + + + + + + +--------+ + + | Name | Type | Priori | Associated Diagnoses | Order Schedule | | | | ty | | | + + +--------+ + + | Home Health, | Outpatient | Routin | Generalized | Ordered: 06/16/2019 | | External - AMB | Referral | e | osteoarthritis Long | | | Referral | | | term prescription | | | | | | opiate use COPD, | | | | | | severe (HCC) Oxygen | | | | | | dependent Urinary | | | | | | frequency Acute on | | | | | | chronic diastolic | | | | | | heart failure (HCC) | | | | | | S/p TAVR | | | | | | (transcatheter | | | | | | aortic valve | | | | | | replacement), | | | | | | bioprosthetic | | | | | | Impaired mobility | | + + +--------+ + + | Pain Clinic, | Outpatient | Routin | Generalized | Expected: | | External - AMB | Referral | e | osteoarthritis Long | 07/08/2019, Expires: | | Referral | | | term prescription | 07/08/2020 | | | | | opiate use | | + + +--------+ + + documented as of this encounter Procedures + +--------+ + + + | Procedure Name | Priori | Date/Time | Associated Diagnosis | Comments | | | ty | | | | + +--------+ + + + | URINALYSIS WITH | Routin | 06/16/2019 | Urinary frequency | Results for this | | MICROSCOPIC WITH | e | 12:25 PM | | procedure are in the | | CULTURE IF INDICATED | | PDT | | results section. | + +--------+ + + + documented in this encounter Results Urinalysis With Microscopic (10/14/2019 1:54 PM PST) + + + + + [...] - 1.030 | [facility] | | | [place], | | | [facility] | | [...] n, Urine | | mg/dL, Negative | [facility] | | | | [...] + | [facility] | [address] | [place] | [phone] | | [facility] | | [address] | | | - LABORATORY | | | | + + + + + Urinalysis with Microscopic with Culture if Indicated (06/16/2019 12:25 PM PDT) + + + + + + | Component | Value | Ref Range | Performed | Pathologist | | | | | At | Signature | + + + + + + | Color, | Yellow | Light Yellow, | [facility] | | | Urine | | Yellow, Straw | [facility] | | | | | [...] - 1.030 | [facility] | | | [place], | | | [facility] | | [...] + + + | Red Blood | 15-25 (A) | 0 - 2 /HPF | [...] | [address] | [place], [place] | [phone] | | [facility] | | [address] | | | - LABORATORY | | | | + + + + + documented in this encounter Visit Diagnoses + + | Diagnosis | + + | Generalized osteoarthritis - Primary Generalized osteoarthrosis, unspecified site | + + | termite treater prescription opiate use | + + | COPD, severe (HCC) Chronic airway obstruction, not elsewhere classified | + + | Oxygen dependent Dependence on supplemental oxygen | + + | Urinary frequency | + + | Acute on chronic diastolic heart failure (HCC) Acute on chronic diastolic heart | | failure | + + | S/p TAVR (transcatheter aortic valve replacement), bioprosthetic | + + | Impaired mobility Other ill-defined conditions | + + documented in this encounter Additional Health Concerns + + + + | Infection | Noted Time | Resolved Time | + + + + | Methicillin-resistant Staphylococcus aureus | 06/08/2019 9:39 AM | | | | PDT | | + + + + documented as of this encounter"
--- OUTSIDE RECORDS SUMMARY | ~2020-03-14 | XMS | Encounter Summary ---
Demographics + + + | Address | [address] | | | [place] [address] | + + + | Home Phone [...] Team Providers + +------+ + | Care Tube Skiver Name | Role | Phone | + [...] | | [address] [place] | [facility] [place] [address] | | | | | [place] [address] | | | | | | [phone] | | | +--------+ + + + [...] | | 2019 | Visit | | FOOD [facility]ICE [address] | | | | | | [place] | | | | | | [address] | | | | | | | | +--------+ + + + + | 04/11/ | Appointment | Radiology | Shawn Michael | | | 2019 | | | MD [address] | | | | | | [address] [place] | | | | | | [place], [place] [address] | | | | | | [phone] | | | | | | | | +--------+ + + + + | 04/13/ | Office | Cardiology | Shawn Michael | | 2019 | Visit | | MD [address] | | | | | | [address] [place] | | | | | | [place] [address] | | | | | | [phone] | | | | | | | [...]
--- OUTSIDE RECORDS SUMMARY | ~2020-03-14 | XMS | Encounter Summary ---
Demographics + + + | Address | [address] | | | [place] [address] | + + + | Home Phone [...] Team Providers + +------+ + | Care Chicken Tender Name | Role | Phone | [...] | | | failure | [place] | [address] | | | | | (HCC) | [address] | Phone: | | | | | | Phone: | [phone] | | | | | | [phone] | | | | | | | Fax: | | | | | | | [phone] | | +--------+ + + + + [...] | | congestive | [address] | [place], [place] | | | | | heart | [place], | [address] | | | | | failure | [place] | Phone: | | | | | ([facility]) | [address] | [phone] | | | | | | Phone: | Fax: | | | | | | [phone] | [phone] | | | | | | Fax: | | | | | | | [phone] | | + + + + + + + Reason for Visit +---------+ + | Reason | Comments | +---------+ + | Hospice | | +---------+ + Encounter Details +--------+ + + + + | Date | Type | Department | Care Team | Description | +--------+ + + + + | 12/21/ | Telephone | [facility] | Nikolay, | Hospice | | 2020 | | MEDICINE [address] | MD Candido | | | | | [address] [place] | [address] [facility] | | | | | [place] [address] | [place] [address] | | | | | [phone] | [phone] | | | | | | | [...] [place] | | | | | | [address] | | | | | | | | +--------+ + + + + | 04/11/ | Appointment | Radiology | Shawn Michael | | | 2019 | | | MD [address] | | | | | | [address] [place] | | | | | | [place] [address] | | | | | | [phone] | | | | | | | | +--------+ + + + + | 04/13/ | Office | Cardiology | Shawn Michael | | | 2020 | Visit | | MD [address] | | | | | | [address] [place] | | | | | | [place] [address] | | | | | | [phone] | | | | | | | | +--------+ + + + + + + +--------+ + + | Name | Type | Priori | Associated Diagnoses | Order Schedule | | | | ty | | | + + +--------+ + + | AMB Referral to Prov | Outpatient | Routin | Chronic combined | Ordered: 12/22/2019 | | [facility] | Referral | e | systolic and [...]
--- OUTSIDE RECORDS SUMMARY | ~2020-03-14 | XMS | Encounter Summary ---
Demographics + + + | Address | [address] | | | [place] [address] | + + + | Home Phone [...] Team Providers + +------+ + | Care Automatic Washer Mechanic Name | Role | Phone | [...] [place], [place] | | | | | [address] | [address] | | | | | [phone] | | | +--------+ + + + [...] [place] | | | | | | [address] | | | | | | | | +--------+ + + + + | 04/11/ | Appointment | Radiology | Shawn Michael | | 2019 | | | MD Marcelino [address] | | | | | | [address] | | | | | | [place] [address] | | | | | | [phone] | | | | | | | | +--------+ + + + + | 04/13/ | Office | Cardiology | Shawn Michael | | | 2019 | Visit | | MD Marcelino [address] | | | | | | [address] [place] | | | | | | [place] [address] | | | | | | [phone] | | | | | | | [...]
--- OUTSIDE RECORDS SUMMARY | ~2020-03-14 | XMS | Encounter Summary ---
Demographics + + + | Address | [address] | | | [place] [address] | + + + | Home Phone [...] Team Providers + +------+ + | Care Airway Controller Name | Role | Phone | [...] + + | 01/20/ | Telephone | [facility] | Nikolay, | Medication Question | | 2019 | | MEDICINE [address] [place] [address] | MD Candido | | | | | [facility] | [address] [place] [address] | | | | | [place] [address] | [place] [address] | | | | | [phone] | [phone] | | | | | | | [...] | | 2019 | Visit | | INSULATION CUTTER [address] | | | | | | [place] | | | | | | [address] | | | | | | | | +--------+ + + + + | 04/11/ | Appointment | Radiology | Shawn Michael | | | 2019 | | | MD [address] | | | | | | [address] [place] | | | | | | [place] [address] | | | | | | [phone] | | | | | | | | +--------+ + + + + | 04/13/ | Office | Cardiology | Shawn Michael | | | 2019 | Visit | | MD [address] | | | | | | [address] [place] | | | | | | [place] [address] | | | | | | [phone] | | | | | | | [...]
--- OUTSIDE RECORDS SUMMARY | ~2020-03-14 | XMS | Encounter Summary ---
Demographics + + + | Address | [address] | | | [place] [address] | + + + | Home Phone | | + + + | Preferred Language | Unknown | + + + | Marital Status | | + + + | Zoroastrianism Affiliation | Unknown | + + + | Race | Unknown | + + + | Ethnic Group | Unknown | + + + Author + + + | Author | [facility] | | | and [place] | + + + | Organization | [facility] | | | [...] Providers + +------+ + | Care Gas Tester Name | Role | Phone | + [...] | Services | COPD | Chace | [place] | | | Required | | exacerbation | MD Pati | [address] | | | | | ([facility]) | [address] | [address] [place] | | | | | Acute on | ST [place] | [place], [place] | | | | | chronic | [place] | [address] | | | | | heart | [address] | Phone: | | | | | failure, | Phone: | [phone] | | | | | unspecified | [phone] | Fax: | | | | | heart | Fax: | [phone] | | | | | failure type | [phone] | | | | | | ([facility]) | | | | | | | Procedures | | | | | | | 11/25/19 SN | | | | | | | PT [address] RT | | | + + + [...] | | | | | | | ([facility]) | | | | | | | Coronary | | | | | | | artery | | | | | | | disease | | | | | | | involving | | | | | | | [place] | | | | | | | coronary | | | | | | | artery of | | | | | | | [place] heart | | | | | | [...] + + | 11/18/ | Hospital | [facility] | Medardo Platt, | Chest pain, | | 2019 - | Encounter | [facility] | [address] | unspecified type | | | | [address] [place] | [facility] [place] | (Primary Dx); COPD | | 11/24/ | | [place] [address] | [place] [address] | exacerbation (HCC); | | 2019 | | [phone] | [phone] | Influenza A; | | | | | | Coronary artery | | | | | Anna Jade MD | disease involving | | | | | [address] | [place] coronary | | | | | [place] | artery of [place] | | | | | [id number] | heart without angina | | | [...] might be differen t from the original. [facility] HOSPITALIST DISCHARGE SUMMARY Pt. 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 Contact information: [address] [place] [address] Condition: Patient being discharged with condition improved Diet: cardiac diet Greater than 30 minutes were spent on discharge and coordination of post-hospital care. Electronically signed by: Chace Higuera MD, 11/24/2019 4:44 PM [facility] Reference. This is NOT part of the [...] this chart may have been created with Digital Karma voice recognition software. Occasi onal wrong-word or [...] secretions in your nose and lungs . Lhlc-vnl-omokqit cold medicines will not make the flu [...] for a few days Date Last Reviewed: 10/06/201619993523-5492 [employer]. [address] [place] [address], [place] [address]. All righ ts reserved. This information is [...] very fast Swollen ankles Date Last Reviewed: 07/06/201819991506-1394 [employer]. [address] [place] [address], [place] [address]. All righ ts reserved. This information is not intended as a substitute for professional medical care. Always follow your healthcare professional's instructions. AttachmentsThe following attachments cannot be sent through Care Everywhere.Chest Pain, Non cardiac (Bangladeshi)documented in this encounter Medications at Time of [...] might be differen t from the original. [place] HOSPITALIST PROGRESS NOTE Patient: Ángela Crowley : 1930: Age: 89 y.o. 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 Chace Higuera MD 11/24/2019 11:25 AM [facility] Subjective CC Patient continues to have [...] for input(s): IRON, TIBC, PCTSAT, FERRITIN, TSH, [id number], FOLATE in the last 168 hours. Inflammatory [...] ABG No results for input(s): PHART, PO2ART, RYN4TMW, CNR3TBX, BEART, [id number] in the last 168 h ours. No results for input(s): SPECSOURCE, PHPOCB, PCO2, PO2, HCO3, TCO2, BEART, [id number] in the last 168 hours. Drug of [...] Value Units Date/Time Culture, Respiratory, Lower, Smear [[id number]] Collected: 11/24/19 0014 Order Status: Completed Lab Status: Preliminary result Updated: 11/24/19 08 Specimen: Body Fluid from Sputum, Expectorated Gram Stain Result 4+ White Blood Cells 2+ Epithelial cells 4+ Gram positive cocci 1+ Yeast Culture, Urine [[id number]] (Susceptibility) Collected: 11/18/19633 Order Status: Completed Lab [...] 1 ug/mL Not Specified Final Culture, MRSA [[id number]] Collected: 11/18/19 044 Order Status: Completed Lab Status: Final result Updated: 11/19/19 07 Specimen: Tissue from Nares Culture 1+ Staphylococcus aureus,Methicillin resistant (MRSA) Comment: *INFECTION PREVENTION ALERT - MRSA* CONTACT PRECAUTIONS REQUIRED. Influenza A and B RNA, NAAT [[id number]] (Abnormal) Collected: 11/18/19128 Order Status: Completed Lab Status: Final result Updated: 11/18/19 020 Specimen: Body Fluid from Nasopharynx Influenza A PCR Positive Influenza B PCR Negative Respiratory pathogen panel, NAAT [[id number]] (Normal) Collected: 11/18/19128 Order Status: Completed Lab Status: Final result Updated: 11/18/19426 Specimen: Body Fluid from Nasopharynx Parainfluenza 1 Not Detected Adenovirus Not Detected Human Metapneumovirus Not Detected Rhinovirus/Enterovirus Not Detected Parainfluenza 3 Not Detected Culture, Blood [[id number]] Collected: 11/18/19127 Order Status: Completed Lab Status: Final result Updated: 11/23/19 014 Specimen: Peripheral Blood Culture No growth after 5 days incubation. Culture, Blood [[id number]] Collected: 11/18/19127 Order Status: Completed Lab Status: [...] this chart may have been created with Digital Karma voice recognition software. Occasi onal wrong-word or sound-alike substitutions may have occurred due to the inherent owen itations of voice recognition software. Please read the chart carefully and recognize, using context, where these substitutions have occurred ermiguel, Chace hobson MD - 11/23/2019 12:49 PM PSTFormatting of this note might be different from the origin al. [place] HOSPITALIST PROGRESS NOTE Patient: Ángela Crowley : 1930: Age: 89 y.o. 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 Inflammatory [...] ABG No results for input(s): PHART, PO2ART, UJC2AGK, JDJ6IRM, BEART, B7UOEPOF in the last 168 h ours. No results for input(s): SPECSOURCE, PHPOCB, PCO2, PO2, HCO3, TCO2, BEART, [id number] in the last 168 hours. Drug of [...] Value Units Date/Time Culture, Respiratory, Lower, Smear [[id number]] Order Status: Sent Lab Status: No result Specimen: Body Fluid from Sputum, Expectorated Culture, Urine [[id number]] (Susceptibility) Collected: 11/18/19 0634 Order Status: Completed [...] 1 ug/mL Not Specified Final Culture, MRSA [[id number]] Collected: 11/18/19 0441 Order Status: Completed Lab Status: Final result Updated: 11/19/19 07 Specimen: Tissue from Nares Culture 1+ Staphylococcus aureus,Methicillin resistant (MRSA) Comment: *INFECTION PREVENTION ALERT - MRSA* CONTACT PRECAUTIONS REQUIRED. Influenza A and B RNA, NAAT [[id number]] (Abnormal) Collected: 11/18/19 0129 Order Status: Completed Lab Status: Final result Updated: 11/18/19 0202 Specimen: Body Fluid from Nasopharynx Influenza A PCR Positive Influenza B PCR Negative Respiratory pathogen panel, NAAT [[id number]] (Normal) Collected: 11/18/19128 Order Status: Completed Lab Status: Final result Updated: 11/18/19 042 Specimen: Body Fluid from Nasopharynx Parainfluenza 1 Not Detected Adenovirus Not Detected Human Metapneumovirus Not Detected Rhinovirus/Enterovirus Not Detected Parainfluenza 3 Not Detected Culture, Blood [[id number]] Collected: 11/18/19127 Order Status: Completed Lab Status: Final result Updated: 11/23/19 014 Specimen: Peripheral Blood Culture No growth after 5 days incubation. Culture, Blood [[id number]] Collected: 11/18/19127 Order Status: Completed Lab Status: [...] this chart may have been created with Digital Karma voice recognition software. Occasi onal wrong-word or [...] Vaz MD - 11/22/2019 7:58 PM PST [facility] Hospitalist Progress Note Ángela Crowley is [...] above. Keyur Carvajal MD 11/22/2019 7:59 PM [facility] Portions of this chart may have been created with Digital Karma voice recognition software. Occasi onal wrong-word or sound-alike substitutions may have occurred due to the inherent owen itations of voice recognition software. Please read the chart carefully and recognize, using context, where these substitutions have occurred arker, Keyur Murray MD - 0 11/21/2019 3:10 PM PST [facility] Hospitalist Progress Note Ángela Crowley is [...] azithromycin which was initiated by the admit [facility] physician. I did advise him that I [...] of prior cardiac valve replacement. No ac [place] osseous findings. Prominence of the central bronchovascular/interstitial [...] above. Keyur Carvajal MD 11/21/2019 3:10 PM [facility] Portions of this chart may have been created with Digital Karma voice recognition software. Occasi onal wrong-word or sound-alike substitutions may have occurred due to the inherent owen itations of voice recognition software. Please read the chart carefully and recognize, using context, where these substitutions have occurred Keyur Vaz MD - 0 11/20/2019 4:20 PM PST [facility] Hospitalist Progress Note Ángela Crowley is [...] of prior cardiac valve replacement. No ac [place] osseous findings. Prominence of the central bronchovascular/interstitial [...] above. Keyur Carvajal MD 11/20/2019 4:20 PM [facility] Portions of this chart may have been created with Digital Karma voice recognition software. Occasi onal wrong-word or [...] medications discrepancies or medication-related issues: Dosage/Form/Frequency change: HORSE WRANGLER Medication: Prior to Admission Sig: Correct Dosage/Form: [...] Medication: Prior to Admission Sig: Sodium Chloride ([place]) 0.65 % nasal spray 2 sprays by [...] Prior to Admission Sig: Patient taking differently HORSE WRANGLER as: Albuterol 90 mcg inhaler Inhale 2 [...] tablet by mouth every morning Best possible HORSE WRANGLER medication list after pharmacy review: PT REPORTED [...] 5 mg by mouth Daily. Taking Differently [facility] brimonidine (ALPHAGAN) [...] daily (with breakfast & di nner). Taking [facility] cholecalciferol (VITAMIN D-3) 25 [...] by mouth 2 times millie ly. Taking [facility] nitroglycerin (NITROSTAT) 0.4 mg SL [...] performed and electronically signed by Gayatri Aldana, Swimming Instructor 11/19/2019 4:52 PM Shaista Flores, Steam Pipe Fitter 11/20/2019 6:49 AM Keyur Vaz MD - 11/19/2019 6:44 PM PSTF ormatting of this note might be different from the original. [facility] Hospitalist Progress Note Ángela Crowley is [...] above. Keyur Carvajal MD 11/19/2019 6:44 PM [facility] Portions of this chart may have been created with Digital Karma voice recognition software. Occasi onal wrong-word or [...] glasses and hearing aid battery, still very takotna. Agitated with bed alarm, I advised amy t this is for pt safety and cannot be removed. [place] foam placed on cocyx. VSS. Report given [...] | 2019 | Visit | | [facility] | | | | | | [place] | | | | | | [address] | | | | | | | | +--------+ + + + + | 04/11/ | Appointment | Radiology | Shawn Michael | | | 2020 | | | MD [address] | | | | | | [address] [place] | | | | | | [place] [address] | | | | | | [phone] | | | | | | | | +--------+ + + + + | 04/13/ | Office | Cardiology | Shawn Michael | | | 2020 | Visit | | MD [address] | | | | | | [address] [place] | | | | | | [place] [address] | | | | | | [phone] | | | | | | | [...] J?MRN: | | | | | | [id number] | | | [id number] | | | riteri | | | [...] | | | endati | | | on:[place] | | | son | | | [...] | | | St. | | | [place] | | | y | | | [...] 2020 | | | | | | [place] | | | ED | | | Dispar | | | ity | | | Measur | | | e - | | | [place] | | | has | | | [...] | | | s. | | | [place] | | | | | | Health [...] | | | By: | | | [place] | | | | | | Health [...] | | 12 0 | | | [facility] | | | | | | [facility] | | | l | | | [facility] | | | al 1 0 | | | [facility] | | | [place] | | | y | | | [...] | | e of | | | [place] | | | | | | palencia [...] | | | 2019 | | | [facility] | | | | | | [facility] [...] | | | 2019 | | | [facility] | | | | | | [facility] [...] | | | 2019 | | | [facility] | | | | | | [facility] [...] | | | M.D. | | | Lamp Decorator | | | al | | | [...] | | | otify/ | | | [id number] | | | [id number] | | | [id number] | | | -[id number] | | | [id number] | | | [id number] | | | [...] + | [facility] | [address] | [place] | [phone] | | [facility] | | [address] | | | - LABORATORY | | [...] | nRBC | | K/uL | [facility] | | | | | | [...] [address] | [place] | [phone] | | [facility] | | [address] | | | - LABORATORY | | [...] 0.51 (L) | 0.55 - 1.02 | [facility] | | | | | mg/dL | [facility] | | | | | | MEDICAL | | | | | | CENTER - | | | | | | LABORATORY | | + + + + + + | eGFR if not | >60Comment: GLOMERULAR | >=60 | [facility] | | | | FILTRATION | mL/min/1.73m2 | [facility] | | | [place] | RATE,ESTIMATED | | MEDICAL | | | | mL/min/1.76w9Vdid than | | CENTER - | | [...] + | [facility] | [address] | [place] | [phone] | | [facility] | | [address] | | | - LABORATORY | | [...] method in use as of | | [facility] | | | | December [...] [address] | [place] | [phone] | | [facility] | | [address] | | | - LABORATORY | | [...] + | [facility] | [address] | [place] | [phone] | | [facility] | | [address] | | | - LABORATORY | | [...] | | | | | | [employer] | | | | [...] + | [facility] | [address] | [place], [place] | [phone] | | [facility] | | [address] | | | - LABORATORY | | [...] | | | | LEONIDAS CALVO MD ([id number]) | | | | | | on [...] | | | | | | [employer] | | | | [...] + | [facility] | [address] | [place] | [phone] | | [facility] | | [address] | | | - LABORATORY | | [...] mL/min/1.73m2 | [facility] | | | [place] | RATE,ESTIMATED | | MEDICAL | | | | mL/min/1.72z9Eshb than | | CENTER - | | [...] [address] | [place] | [phone] | | [facility] | | [address] | | | - LABORATORY | | [...] [address] | [place] | [phone] | | [facility] | | [address] | | | - LABORATORY | | [...] [address] | [place] | [phone] | | [facility] | | [address] | | | - LABORATORY | | [...] | | | | M/uL | [facility] | | | | | | [...] [address] | [place] | [phone] | | [facility] | | [address] | | | - LABORATORY | | [...] | [address] | [place] | | | [facility] | | [address] | | | - BLOOD BANK | [...] | [address] | [place] | [phone] | | [facility] | | [address] | | | - LABORATORY | | [...] ST. | [address] | [place] | [phone] | | [facility] | | [address] | | | - LABORATORY | | [...] [address] | [place] | [phone] | | [facility] | | [address] | | | - LABORATORY | | [...] | 0.57 | 0.55 - 1.02 | [facility] | | | | | mg/dL | [facility] | | | | | | MEDICAL | | | | | | CENTER - | | | | | | LABORATORY | | + + + + + + | eGFR if not | >60Comment: GLOMERULAR | >=60 | [facility] | | | | FILTRATION | mL/min/1.73m2 | [facility] | | | [place] | RATE,ESTIMATED | | MEDICAL | | | | mL/min/1.37i7Oxfx than | | CENTER - | | [...] [address] | [place] | [phone] | | [facility] | | [address] | | | - LABORATORY | | [...] + | [facility] | [address] | [place] | [phone] | | [facility] | | [address] | | | - LABORATORY | | [...] | | | | LEONIDAS CALVO MD ([id number]) | | | | | | on [...] | | [facility] | | [address] | | | - BLOOD BANK | [...] | | Granulocyte | | | [facility] | | | s | | | [...] + | [facility] | [address] | [place] | [phone] | | [facility] | | [address] | | | - LABORATORY | | [...] | | | | mmol/L | [facility] | | | | [...] | 0.95 | 0.55 - 1.02 | [facility] | | | | | mg/dL | [facility] | | | | | | MEDICAL | | | | | | CENTER - | | | | | | LABORATORY | | + + + + + + | eGFR if not | 55 (L)Comment: | >=60 | [facility] | | | | GLOMERULAR FILTRATION | mL/min/1.73m2 | [facility] | | | [place] | RATE,ESTIMATED | | MEDICAL | | | | mL/min/1.31n0Jlxn than | | CENTER - | | [...] 8.2 (L) | 8.7 - 10.4 | [facility] | | | | | mg/dL | [facility] | | | | [...] [address] | [place] | [phone] | | [facility] | | [address] | | | - LABORATORY | | [...] [address] | [place] | [phone] | | [facility] | | [address] | | | - LABORATORY | | [...] | | | FILTRATION | mL/min/1.73m2 | [facility] | | | [place] | RATE,ESTIMATED | | MEDICAL | | | | mL/min/1.91u7Pxqi than | | CENTER - | | [...] [address] | [place] | [phone] | | [facility] | | [address] | | | - LABORATORY | | [...] [address] | [place] | [phone] | | [facility] | | [address] | | | - LABORATORY | | | | + + + + + Troponin I (11/18/2019 1:55 PM PST) + + + + + + | Component | Value | Ref Range | Performed | Pathologist | | | | | At | Signature | + + + + + + | Troponin I | 0.14 (H)Comment: | <0.06 ng/mL | [facility] | | | | Comment:Reference | | [...] | | | | | | [employer] | | | | [...] | [address] | [place], [place] | [phone] | | [facility] | | [address] | | | - LABORATORY | | [...] | | | | | | [employer] | | | | [...] [address] | [place] | [phone] | | [facility] | | [address] | | | - LABORATORY | | [...] + | [facility] | [address] | [place] | [phone] | | [facility] | | [address] | | | - LABORATORY | | [...] - 1.030 | [facility] | | | [place], | | | [facility] | | [...] [address] | [place] | [phone] | | [facility] | | [address] | | | - LABORATORY | | [...] | | | | aureus,Methicillin | | [facility] | | | | resistant [...] + | [facility] | [address] | [place], [place] | [phone] | | [facility] | | [address] | | | - LABORATORY | | [...] [address] | [place] | [phone] | | [facility] | | [address] | | | - LABORATORY | | [...] [address] | [place] | [phone] | | [facility] | | [address] | | | - LABORATORY | | [...] [address] | [place] | [phone] | | [facility] | | [address] | | | - LABORATORY | | [...] + | [facility] | [address] | [place] | [phone] | | [facility] | | [address] | | | - LABORATORY | | [...] ST. | [address] | [place] | [phone] | | [facility] | | [address] | | | - LABORATORY | | [...] [address] | [place] | [phone] | | [facility] | | [address] | | | - LABORATORY | | [...] + | [facility] | [address] | [place] | [phone] | | [facility] | | [address] | | | - LABORATORY | | [...] [address] | [place] | [phone] | | [facility] | | [address] | | | - LABORATORY | | [...] [address] | [place] | [phone] | | [facility] | | [address] | | | - LABORATORY | | [...] in use as of | | [facility] | | | | December 02, [...] [address] | [place] | [phone] | | [facility] | | [address] | | | - LABORATORY | | [...] | | | | | | [employer] | | | | [...] [address] | [place] | [phone] | | [facility] | | [address] | | | - LABORATORY | | [...] | 0.68 | 0.55 - 1.02 | [facility] | | | | | mg/dL | [facility] | | | | | | MEDICAL | | | | | | CENTER - | | | | | | LABORATORY | | + + + + + + | eGFR if not | >60Comment: GLOMERULAR | >=60 | [facility] | | | | FILTRATION | mL/min/1.73m2 | [facility] | | | [place] | RATE,ESTIMATED | | MEDICAL | | | | mL/min/1.87a4Xcpx than | | CENTER - | | [...] [address] | [place] | [phone] | | [facility] | | [address] | | | - LABORATORY | | [...] + | [facility] | 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 | [...] PST | | | | | on [facility] 11/18/19 at 0900 | | | | [...] | | | | | Breath, Starting [facility] 11/18/19 at | | | | | [...] | | | | | dose on [facility] 11/18/19 at 0500 | | | | [...] | | | | First dose on [facility] 11/18/19 at | | | | | [...] | | | | | dose on [facility] 11/18/19 at 0800, Hold | | | [...] HOURS PRN, Cough, | | | Starting [facility] 11/18/19 at 0440 | | + +---+ [...] | | | | | dose on [facility] 11/18/19 at 0900 | | | | [...] | | | | | dose on [facility] 11/18/19 at 2100 | | | | [...] | | | | First dose on [facility] 11/18/19 at | | | | | [...] | | | | | dose on [facility] 11/21/19 at 0900 | | AM PST [...]
--- OUTSIDE RECORDS SUMMARY | ~2020-03-14 | XMS | Encounter Summary ---
Demographics + + + | Address | [address] | | | [place] [address] | + + + | Home Phone [...] Team Providers + +------+ + | Care Apparel Manufacture Instructor Name | Role | Phone | [...] | | [facility] | [address] [place] [address] | | | | | [place] [address] | [place] [address] | | | | | [phone] | [phone] | | | | | | | [...] | | 2019 | Visit | | HEALTHCARE ACCOUNT MANAGER [address] | | | | | | [place] | | | | | | [address] | | | | | | | | +--------+ + + + + | 04/11/ | Appointment | Radiology | Shawn Michael | | | 2019 | | | MD [address] | | | | | | [address] [place] | | | | | | [place] [address] | | | | | | [phone] | | | | | | | | +--------+ + + + + | 04/13/ | Office | Cardiology | Shawn Michael | | | 2019 | Visit | | MD [address] | | | | | | [address] [place] | | | | | | [place], [place] [address] | | | | | | [phone] | | | | | | | [...]
--- OUTSIDE RECORDS SUMMARY | ~2020-03-14 | XMS | Encounter Summary ---
Demographics + + + | Address | [address] | | | [place] [address] | + + + | Home Phone [...] Team Providers + +------+ + | Care Implementation Coordinator Name | Role | Phone | + +------+ + | Candido Link | PCP | | | MD | | | + +------+ + Reason for Visit + + + | Reason | Comments | + + + | Initial Assessment | | + + + Evaluate & Treat (Routine) +--------+ + + + + + | Status | Reason | Specialty | Diagnoses / | Referred By | Referred To | | | | | Procedures | Contact | Contact | +--------+ + + + + + | Closed | Specialty | Occupational | Diagnoses | | [facility] | | | Services | Therapy / | Generalized | Yana-Tajt | [place] | | | Required | Rehabilitatio | | i, | Therapy [address] | | | | n | osteoarthrit | Candido | [address] | | | | | is | , MD [address] | [place], | | | | | Procedures | [address] | [place] [address] | | | | | PT | [place], | Phone: | | | | | | [place] | [phone] | | | | | | [address] | Fax: | | | | | | Phone: | [phone] | | | | | | [phone] | | | | | | | Fax: | | | | | | | [phone] | | +--------+ + + + + + Encounter Details +--------+---------+ + + + | Date | Type | Department | Care Team | Description | +--------+---------+ + + + | 08/03/ | Office | [facility] | Yana-Lani, | Generalized | | 2019 | Visit | [facility] | MD Candido | osteoarthritis | | | | [address] | [address] [facility] | (Primary Dx); Acute | | | | [place] | [place] [address] | pain of right | | | | [address] | [phone] | shoulder; Weakness | | | | [phone] | | of both hands | | | | | Ivett Roger A, OT | | | | | | [address] | | | | | | [place] | | | | | | [address] | | | | | | | | | | | | Sloan Augustin R, | | | | | | Aide | | +--------+---------+ + + + Social [...] +---------+ + + | Blood Pressure | 110/66 | 08/03/2019 10:49 AM | | | | | PDT | | + +---------+ + + | Pulse | 105 | 08/03/2019 10:49 AM | | | | | PDT | | + +---------+ + + | Temperature | - | - | | + +---------+ + + | Respiratory Rate | - | - | | + +---------+ + + | Oxygen Saturation | 91% | 08/03/2019 10:49 AM | | | | | PDT [...] +---------+ + + documented in this encounter Progress Notes Ivett Roger OT - 08/03/2019 10:30 AM PDTFormatting of this note might be different fr om the original. Occupational Therapy Plan of Care Date: 08/03/2019 Patient Name: Ángela Crowley Date of : 1930 Encounter Diagnoses Code Name Primary? 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 Objective exam reveals impairments with limited AROM of the sh oulder, hand weakness. These impairments and diagnosis are causing functional limitations wi th patient's ability to reach over head or in front of her affecting participation in the fo llowing activities self care activities, . Signs and symptoms are consistent with deconditio sonya And pain post fall. Complexities contributing to frequency and duration of therapy: a ge, deconditioning.. Some tensions noted between son and Pt, as each appeared to have times of stress and exampl es of strong will. Goals: Outcome Specific Scored Goals Primary Functional Goals: PSFS Patient Specific Functional Scale Goal 1: Independent home exercise program to facilitate i ndependent symptom management. Patient Specific Functional Scale Goal 1 Status Comment: pt has theraband exercises but no hand exercises Patient Specific Functional Scale Goal 2: pt will verbalized decreased pain in the right sh oudler / son will demonstrate abilty to use K tape as benificial. Patient Specific Functional Scale Goal 2 Status Comment: Pt con rigt shoulder pain withci l imites her mition of the shoulder. Treatment Plan/Interventions OT [id number] - Therapeutic [id number] - Therapeutic [id number] - Self Care/Ho me [id number] - Manual Therapy Patient and/or family has indicated understanding of treatment needs and actively participa yoel in the creation of this plan for care. Electronically signed by: Ivett Roger OT, 08/03/2019 15:45 Patient Name: Ángela Crowley/: 1930/ y signed by Candido Link MD at 08/03/2019 8:48 PM PDTNoel, Ivett Dahl OT - 08/03/2019 10:30 AM PDT [facility] [address] [place] [address] Occupational Therapy Initial Assessment Date: 08/03/2019 Patient Information Patient Name: Ángela Crowley Date of : 1930 Age: 88 y.o. History Problem Right Shoulder Pain Weakness of Both Hands Mechanism of injury: Trauma, hx of arthritis History of symptoms: pt has increased shoulder pain since recent fall Previous level of function and limitations: uses a walker and O2, Performs most of her own ADL's Work status:Retired Living situation: living with son and family Social History Socioeconomic History Marital status: Spouse name: Not on file Number of children: Not on file Years of education: Not on file Highest education level: Not on file Tobacco Use Smoking status: Former Smoker Types: Cigarettes Start date: 1944 Last attempt to quit: 1968 Years since quittin.8 Smokeless tobacco: Never Used Substance and Sexual Activity Alcohol use: Never Frequency: Never Encounter Diagnoses Code Name Primary? 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 CHOLECYSTECTOMY COLONOSCOPY N/A 06/11/2019 Procedure: COLONOSCOPY-Possible Flex Sig; Surgeon: Edwin Stoddard MD; Location: [facility] PROCEDURE UNIT NIRMAL AND BSO TONSILLECTOMY AND ADENOIDECTOMY UPPER GASTROINTESTINAL ENDOSCOPY N/A 06/07/2019 Procedure: EGD; Surgeon: Edwin Stoddard MD; Location: [facility] MEDICAL PROCEDURE UNIT Family History Problem Relation Age of Onset Hypertension Mother Developmental History Allergies Allergen Reactions Percocet [Oxycodone] Unknown Pregabalin Unknown Lyrica Sulfa Antibiotics Unknown Prior Treatment: Hospital rehab unit - within the last sixty days Abuse Assessment Do you feel safe in your current relationship or home?: Yes Pain Assessment: Pain Scale Used: NUMERIC Pain Rating Pre Assessment: 3 Location: chest Pain/Comfort Presence Of Pain: complains of pain/discomfort EVALUATION: SUBJECTIVE: History of Presenting Problem: Ángela is a 88 y.o. right handed female who prese nts to therapy with son and grand daughter in attendance Functional Limitations: fatigue, uses O2, pain right shoulder Precaution/special problems: pulmonary and cardiac history Patient s Goals: decrease shoulder pain. OBJECTIVE: Vitals: Vital Signs Pulse: 105 BP: 110/66 SpO2: 91 % MEWS Total Score: 1 ROM:right shoulder limited by pain due to recent fall. Finger extension is limited due arth ritis but is within functional Limits. Other AROM is normal STRENGTH: UE: Initial Eval Initial Eval PN/DC PN/DC Measured in lbs Right Left Right Left Gross Field Service Coordinator 21, 20, 20 average 20 25, 24, 22 average 24 Montero Pinch Average water meter reader for female over age 75 is R 42 and L 37 SENSATION: Pt states that she has numbness in the ring and little fingers 2x a week. occa sional numbness up into the forearm Standardized Tests: ASSESSMENT: Patient presents to occupational therapy with generalized arthritis and pain in the right shoulder. Objective exam reveals impairments with limited AROM of the shoulder, hand weaknes s. These impairments and diagnosis are causing functional limitations with patient's ability to reach over head or in front of her affecting participation in the following activities s elf care activities, . Signs and symptoms are consistent with deconditioning And pain post fall. Complexities contributing to frequency and duration of therapy: age, deconditioning.. Some tensions noted between son and Pt, as each appeared to have times of stress and exampl es of strong will. Rehabilitation potential: Patient demonstrates good potential to achieve established goals to address the documented impairments by participating in skilled occupational therapy serv ices. Goals: Outcome Specific Scored Goals Primary Functional Goals: PSFS Patient Specific Functional Scale Goal 1: Independent home exercise program to facilitate i ndependent symptom management. Patient Specific Functional Scale Goal 1 Status Comment: pt has theraband exercises but no hand exercises Patient Specific Functional Scale Goal 2: pt will verbalized decreased pain in the right sh oudler / son will deonstrate abilty to use K tape as benificial. Patient Specific Functional Scale Goal 2 Status Comment: Pt con rigt shoulder pain withci l imites her mition of the shoulder. Plan Date of Onset: 07/15/2019 Start of Care Date: 08/03/2019 Requested # of Visits: 6 visits 1x/week for 4-6 weeks Certification From: 08/03/2019 Certification To: 09/17/2019 Treatment Plan/Interventions OT [id number] - Therapeutic [id number] - Therapeutic [id number] - Self Care/Ho me [id number] - Manual Therapy Patient and/or family has indicated understanding of treatment needs and actively participa yoel in the creation of this plan for care. Today's Treatment Start Time: 1040 Stop time: 1130 Duration: 50 minutes Timed Treatment Codes: 30 minutes # of OT Visits: 2 Objective: Education of rehab timeline, focus and expectations. Pt late to tx session due to going to the wrong location. Son was under the impression that pt was to be seen for balance. Pt to see MD after OT veronika marques and son will request PT for balance. Pt seen for evaluation Pt encouraged to continues with band exercises to tolerance only due to shoulder pain. Pt seen for application of K tape in I configuration to anterior and posterior shoulder and horizontal from anterior shoulder to back It the taping helps to decrease pain, son will be instructed in technique to use at home. Next Visit: monitor response to pain, instruct in blue/green sponge exercise, instructed so n in tape application, review Band exercise for shoulder to be done with out pain. Electronically signed by: Ivett Roger OT, 08/03/2019 15:43 Patient Name: Ángela Crowley/: 1930/ documented in this e ncounter Plan of Treatment +--------+ + + + + | Date | Type | Specialty | Care Team | Description | +--------+ + + + + | 03/23/ | Office | Anticoagulation | García Harris, | | | 2019 | Visit | | [place] [address] | | | | | | [place] | | | | | | [address] | | | | | | | | +--------+ + + + + | 04/11/ | Appointment | Radiology | Shawn Michael | | | 2019 | | | MD [address] | | | | | | [address] [place] | | | | | | [place] [address] | | | | | | [phone] | | | | | | | | +--------+ + + + + | 04/13/ | Office | Cardiology | Shawn Michael | | | 2019 | Visit | | MD [address] | | | | | | [address] [place] | | | | | | [place] [address] | | | | | | [phone] | | | | | | | [...] osteoarthrosis, unspecified site | + + | Acute pain of right shoulder | + + | Weakness of both hands | + + documented in this encounter Additional Health Concerns + + + + | Infection | Noted Time | Resolved Time | + + + + | Methicillin-resistant Staphylococcus aureus | 06/08/2019 9:39 AM | | | | PDT | | + + + + documented as of this encounter"
--- OUTSIDE RECORDS SUMMARY | ~2020-03-14 | XMS | Encounter Summary ---
Demographics + + + | Address | [address] | | | [place] [address] | + + + | Home Phone [...] Team Providers + +------+ + | Care Buffer Machine Name | Role | Phone | [...] | | | | | [address] | [address] [place] | | | | | [place], [place] | [place] [address] | | | | | [address] | | | | | | [phone] | | | +--------+ + + + [...] 08/22/19 07 by | | eral | xpzx-lsq-hlouyj catheter system; | Yahir Groves RN | Zee Tineo, | | IV | 24 gauge; Hematology, Chemistry; | | RN | | | removed in past; 08/22/19; 07 | | | +--------+ + + + | Periph | 08/19/19; 2056; Left; Hand; | 08/19/192056 by | 08/21/19 114 by Rosio | | lucy | qzcy-gml-fjkwsq catheter system; | Yahir Groves RN | [...] [place] | | | | | | [address] | | | | | | | | +--------+ + + + + | 04/11/ | Appointment | Radiology | Shawn Michael | | 2019 | | | MD [address] | | | | | | [address] [place] | | | | | | [place] [address] | | | | | | [phone] | | | | | | | | +--------+ + + + + | 04/13/ | Office | Cardiology | Shawn Michael | | | 2020 | Visit | | MD [address] | | | | | | [address] [place] | | | | | | [place] [address] | | | | | | [phone] | | | | | | | [...]
--- OUTSIDE RECORDS SUMMARY | ~2020-03-14 | XMS | Encounter Summary ---
Demographics + + + | Address | [address] | | | [place] [address] | + + + | Home Phone [...] Team Providers + +------+ + | Care Roof Mechanic Name | Role | Phone | [...] [place] | | | | | | [address] | | | | | | [phone] | | | +--------+ + + + [...] | | | | | [place] [address] | | | | | | [phone] | | | | | | | | +--------+ + + + + | 04/13/ | Office | Cardiology | Shawn Michael | | | 2019 | Visit | | MD Marcelino [address] | | | | | | [address] | | | | | | [place] [address] | | | | | | [phone] | | | | | | | [...]
--- OUTSIDE RECORDS SUMMARY | ~2020-03-14 | XMS | Encounter Summary ---
Demographics + + + | Address | [address] | | | [place] [address] | + + + | Home Phone [...] Team Providers + +------+ + | Care Dinkey Dispatcher Name | Role | Phone | + [...] | blood loss | [address] | [place] [address] | | | | | (chronic) | [place], | Phone: | | | | | Gastrointest | [place] | [phone] | | | | | inal | [address] | Fax: | | | | | hemorrhage, | Phone: | [phone] | | | | | unspecified | [phone] | | | | | | gastrointest | Fax: | | | | | | inal | [phone] | | | | | | hemorrhage | | | | | | | type | | | | | | | Procedures | | | | | | | [facility] OFFICE | | | | | | [...] + + | 03/07/ | Telephone | [facility] | Nikolay, | Referral | | 2019 | | MEDICINE [address] [place] [address] | MD Candido | | | | | [facility] | [address] [place] [address] | | | | | [place] [address] | [place] [address] | | | | | [phone] | [phone] | | | | | | | [...] | | 2019 | Visit | | RACK MAKER [address] | | | | | | [place] | | | | | | [address] | | | | | | | | +--------+ + + + + | 04/11/ | Appointment | Radiology | Shawn Michael | | | 2019 | | | MD [address] | | | | | | [address] [place] | | | | | | [place] [address] | | | | | | [phone] | | | | | | | | +--------+ + + + + | 04/13/ | Office | Cardiology | Shawn Michael | | | 2019 | Visit | | MD [address] | | | | | | [address] [place] | | | | | | [place] [address] | | | | | | [phone] | | | | | | | [...]
--- OUTSIDE RECORDS SUMMARY | ~2020-03-14 | XMS | Encounter Summary ---
Demographics + + + | Address | [address] | | | [place] [address] | + + + | Home Phone [...] Team Providers + +------+ + | Care Exhibit Display Representative Name | Role | Phone | [...] | | | [address] [place] | [facility] [place] [address] | | | | | [place] [address] | | | | | | [phone] | | | +--------+ + + + [...] | | 2019 | Visit | | PANELBOARD TANK PUMPER [address] | | | | | | [place] | | | | | | [address] | | | | | | | | +--------+ + + + + | 04/11/ | Appointment | Radiology | Shawn Michael | | | 2019 | | | MD [address] | | | | | | [address] [place] | | | | | | [place], [place] [address] | | | | | | [phone] | | | | | | | | +--------+ + + + + | 04/13/ | Office | Cardiology | Shawn Michael | | 2019 | Visit | | MD [address] | | | | | | [address] [place] | | | | | | [place] [address] | | | | | | [phone] | | | | | | | | +--------+ + + + + documented as of this encounter Procedures + +--------+ + + + | Procedure Name | Priori | Date/Time | Associated Diagnosis | Comments | | | ty | | | | + +--------+ + + + | MRI ABDOMEN W WO | Routin | 02/07/2019 | | Results for this | | CONTRAST | e | 12:00 AM | | procedure are in the | | | | PDT | | results section. | + +--------+ + + + documented in this encounter Results MRI Abdomen w wo Contrast (02/07/2019 12:00 AM PDT) + + | Specimen [...]
--- OUTSIDE RECORDS SUMMARY | ~2020-03-14 | XMS | Encounter Summary ---
Demographics + + + | Address | [address] | | | [place] [address] | + + + | Home Phone [...] Providers + +------+ + | Care Surgical Orderly Name | Role | Phone | + [...] [place] | | | | | | [address] | | | | | | [phone] | | | +--------+ + + + [...] [place] | | | | | | [address] | | | | | | | | +--------+ + + + + | 04/11/ | Appointment | Radiology | Shawn Michael | | 2019 | | | MD Marcelino [address] | | | | | | [address] | | | | | | [place] [address] | | | | | | [phone] | | | | | | | | +--------+ + + + + | 04/13/ | Office | Cardiology | Shawn Michael | | | 2019 | Visit | | MD Marcelino [address] | | | | | | [address] | | | | | | [place] [address] | | | | | | [phone] | | | | | | | [...] - DISCIPLINE D/C | | Discipline - Senior Care | + + + + +--------+--------+ + [...] 2018 | | | interventio | | Senior Care | infusion. | | | | ns [...] 2018 | | | interventio | | Senior Care | | | | | n | [...] Active | linked to | | | Senior Care | | 2018 | | scheduled/d | [...] linked to | interventio | | Senior Care | | 2018 | | scheduled/d | [...] | | scheduled/d | ns | | Senior Care | | | | ocumented | scheduled/d [...] | | scheduled/d | n | | Senior Care | | | | ocumented | scheduled/d [...] 08/28/ | Active | | | | Senior Care | | 2019 | | | interventio [...] linked to | interventio | | Senior Care | CHRONIC OXYGEN USE | 2019 | [...] | | | | as presented in [facility] | | | | | | Pt [...] | | [facility] teaching | | | | . [...] | | | | | | to [facility] for | | | | | | [...] | | | | | | (possible BUSINESS TECHNOLOGY ANALYST | | | | | | referral). [...] | | | | | | IS AFOGNAK AND UNABLE | | | | | [...] Pt | | Description: | RESPIRATORY | yeol | | continues to wear oxygen | [...]
--- OUTSIDE RECORDS SUMMARY | ~2020-03-14 | XMS | Encounter Summary ---
Demographics + + + | Address | [address] | | | [place] [address] | + + + | Home Phone [...] Team Providers + +------+ + | Care Ecology Professor Name | Role | Phone | [...] + + | 12/13/ | Office | [facility] | Yana-Lani, | Pneumonia due to | | 2019 | Visit | MEDICINE [address] | MD Candido | methicillin | | | | [facility] | [address] [place] [address] | resistant | | | | [place] [address] | [place] [address] | Staphylococcus | | | | [phone] | [phone] | aureus, unspecified | | | | [...] region, stage 2 Coronary artery disease involving [place] coronary artery of [place] heart without angina pectoris COPD (chronic obstructive [...] 0 -Discontinue clindamycin -Encouraged to take an fujl-rst-gkoqbcd probiotic on a daily basis. -Instructed son [...] Flex Sig; Surgeon: Edwin Stoddard MD; Location: [facility] PROCEDURE UNIT HYSTERECTOMY NIRMAL AND BSO TONSILLECTOMY AND ADENOIDECTOMY UPPER GASTROINTESTINAL ENDOSCOPY N/A 06/07/2019 Procedure: EGD; Surgeon: Edwin Stoddard MD; Location: [facility] MEDICAL PROCEDURE UNIT UPPER GASTROINTESTINAL ENDOSCOPY N/A 08/20/2019 Procedure: EGD; Surgeon: John Grimes MD; Location: [facility] MED[facility] PROCEDURE UN[facility] CURRENT MEDICATIONS Current [...] 1. Parts of this documentwere created using Subtextual speech recognition software. As a resu lt, [...] | | 2019 | Visit | | [address] | | | | | | [place] | | | | | | [id number] | | | | | | | | +--------+ + + + + | 04/11/ | Appointment | Radiology | Shawn Michael | | 2019 | | | MD Marcelino [address] | | | | | | [address] | | | | | | [place] [address] | | | | | | [phone] | | | | | | | | +--------+ + + + + | 04/13/ | Office | Cardiology | Shawn Michael | | | 2020 | Visit | | MD Marcelino [address] | | | | | | [address] [place] | | | | | | [place] [address] | | | | | | [phone] | | | | | | | [...]
--- OUTSIDE RECORDS SUMMARY | ~2020-03-14 | XMS | Encounter Summary ---
Demographics + + + | Address | [address] | | | [place] [address] | + + + | Home Phone | | + + + | Preferred Language | Unknown | + + + | Marital Status | | + + + | Congregation Affiliation | Unknown | + + + | Race | Unknown | + + + | Ethnic Group | Unknown | + + + Author + + + | Author | [facility] | | | and [place] | + + + | Organization | [facility] | | [...] Team Providers + +------+ + | Care Lime Supervisor Name | Role | Phone | [...] + + | 12/12/ | Telephone | [facility] | Kaylyn Rivas, | T[facility] - Hosp [facility] | | 2019 | | MEDICINE [facility] [address] | [place] | | | | | [address] | | | | | | [place] [address] | | | | | | [phone] | | | +--------+ + + + [...] | | 2020 | Visit | | OUTSOLE PARAFFINER [address] | | | | | | [place] | | | | | | [address] | | | | | | | | +--------+ + + + + | 04/11/ | Appointment | Radiology | Shawn Michael | | | 2019 | | | MD [address] | | | | | | [address] [place] | | | | | | [place] [address] | | | | | | [phone] | | | | | | | | +--------+ + + + + | 04/13/ | Office | Cardiology | Shawn Michael | | 2019 | Visit | | MD [address] | | | | | | [address] [place] | | | | | | [place] [address] | | | | | | [phone] | | | | | | | [...]
--- OUTSIDE RECORDS SUMMARY | ~2020-03-14 | XMS | Encounter Summary ---
Demographics + + + | Address | [address] | | | [place] [address] | + + + | Home Phone [...] Team Providers + +------+ + | Care Acetylene Cutter Name | Role | Phone | [...] | 12/19/ | Home Care | [facility] [place] | Layla Pablo | CASE COMMUNICATION | | 2020 | Visit | [place] [address] | | | | | | [address] [place] | | | | | | [address] | | | | | | [phone] | | | +--------+ + + + [...] [place] | | | | | | [id number] | | | | | | | | +--------+ + + + + | 04/11/ | Appointment | Radiology | Shawn Michael | | | 2019 | | | MD Marcelino [address] | | | | | | [address] | | | | | | [place] [address] | | | | | | [phone] | | | | | | | | +--------+ + + + + | 04/13/ | Office | Cardiology | Shawn Michael | | | 2020 | Visit | | MD Marcelino [address] | | | | | | [address] | | | | | | [place] [address] | | | | | | [phone] | | | | | | | [...]
--- OUTSIDE RECORDS SUMMARY | ~2020-03-14 | XMS | Encounter Summary ---
Demographics + + + | Address | [address] | | | [place] [address] | + + + | Home Phone [...] Team Providers + +------+ + | Care Bottle Selector Name | Role | Phone | + [...] | +--------+ + + + + | 06/17/ | Home Care | [facility] [place] | Bernardo Souza | OT SECONDARY EVAL | | 2019 | Visit | [place] [address] | M, [place] | | | | | [place] | | | | | | [address] | | | | | | [phone] | | | +--------+ + + + [...] + + + | Blood Pressure | 114/58 | 06/17/2019 1:49 PM | | | | | PDT | | + + + + + | Pulse | 91 | 06/17/2019 1:49 PM | | | | | PDT | | + + + + + | Temperature | 37.1 C (98.7 F) | 06/17/2019 1:49 PM | | | | | PDT | | + + + + + | Respiratory Rate | - | - | | + + + + + | Oxygen Saturation | 99% | 06/17/2019 1:49 PM | 4.5L o2 | | | | PDT | | [...] [place] | | | | | | [address] | | | | | | | | +--------+ + + + + | 04/11/ | Appointment | Radiology | Shawn Michael | | 2019 | | | MD Marcelino [address] | | | | | | [address] | | | | | | [place] [address] | | | | | | [phone] | | | | | | | | +--------+ + + + + | 04/13/ | Office | Cardiology | Julieta Michaelr | | | 2019 | Visit | | MD Marcelino [address] | | | | | | [address] [place] | | | | | | [place] [address] | | | | | | [phone] | | | | | | | [...]
--- OUTSIDE RECORDS SUMMARY | ~2020-03-14 | XMS | Encounter Summary ---
Demographics + + + | Address | [address] | | | [place] [address] | + + + | Home Phone [...] Team Providers + +------+ + | Care Box Truck Washer Name | Role | Phone | + [...] + + + + | 09/06/ | Home Care | [facility] [place] | Emily Reynolds, PT | CASE COMMUNICATION | | 2019 | Visit | [place] [address] | | | | | | [place] | | | | | | [address] | | | | | | [phone] | | | +--------+ + + + [...] | | | | | [place] [address] | | | | | | [phone] | | | | | | | | +--------+ + + + + | 04/13/ | Office | Cardiology | Shawn Michael | | 2019 | Visit | | MD Marcelino [address] | | | | | | [address] | | | | | | [place] [address] | | | | | | [phone] | | | | | | | [...]
--- OUTSIDE RECORDS SUMMARY | ~2020-03-14 | XMS | Encounter Summary ---
Demographics + + + | Address | [address] | | | [place] [address] | + + + | Home Phone | | + + + | Preferred Language | Unknown | + + + | Marital Status | | + + + | Baptist Affiliation | Unknown | + + + | Race | Unknown | + + + | Ethnic Group | Unknown | + + + Author + + + | Author | [facility] | | | and [place] | + + + | Organization | [facility] | | [...] Team Providers + +------+ + | Care Instrument Technologist Name | Role | Phone | [...] | +--------+ + + + + | 07/09/ | Home Care | [facility] [place] | Ryan Woodward, | SN REPEAT VISIT | | 2018 | Visit | [place] [address] | [place] | | | | | [place] | | | | | | [address] | | | | | | [phone] | | | +--------+ + + + [...] + | Blood Pressure | 120/78 | 07/09/2019 3:17 PM | | | | | PDT | | + + + + + | Pulse | 78 | 07/09/2019 3:17 PM | | | | | PDT | | + + + + + | Temperature | 36.7 C (98.1 F) | 07/09/2019 3:17 PM | | | | | PDT | | + + + + + | Respiratory Rate | 14 | 07/09/2019 3:17 PM | | | | | PDT | | + + + + + | Oxygen Saturation | 97% | 07/09/2019 3:17 PM | | | | | PDT [...] [place] | | | | | | [address] | | | | | | | | +--------+ + + + + | 04/11/ | Appointment | Radiology | Shawn Michael | | 2019 | | | MD Marcelino [address] | | | | | | [address] | | | | | | [place] [address] | | | | | | [phone] | | | | | | | | +--------+ + + + + | 04/13/ | Office | Cardiology | Shawn Michael | | | 2019 | Visit | | MD Marcelino [address] | | | | | | [address] [place] | | | | | | [place] [address] | | | | | | [phone] | | | | | | | [...] HH SHARED | Depression | | | 1 goal | 1 goal | | DEPRESSION | | 06/13/20 | Active | linked to | interventio | | Disciplines: | | 19 | | scheduled/d | n | | Retirement, | | | | ocumented | scheduled/d | | Physical Therapy, | | | | interventio | ocumented | | Occupational | | | | n | in this | | Therapy, Case | | | | | visit | | Knocker Off, Physical | | | | | | | Washerette Machine Operator | | | | | | + + +--------+--------+ + + | HH SHARED PAIN | | | | - | 2 problem | | Disciplines: | | 06/13/20 | Active | | | | Retirement | | 19 | | | interventio [...] 19 | | | interventio | | Retirement | | | | | n | | | | | | | scheduled/d | | | | | | | ocumented | | | | | | | in this | | | | | | | visit | + + +--------+--------+ + + | | | | | - [...] +--------+--------+ + + | Respiratory Status | COPD & CHF | | | - | 3 problem | | Disciplines: | | 06/13/20 | Active | | | | Retirement | | 19 | | | interventio [...] | + + +--------+-------+ + | HH DEPRESSION | HH SHARED | | No | | | UNDERSTANDING | DEPRESSION | | | | | Description: The | | | | | | patient and/or | | | | | | caregiver will | | | | | | verbalize | | | | | | understanding of | | | | | | general measures to | | | | | | manage depression. | | | | | + + +--------+-------+ + + + +--------+--------+ + | Intervention | Associated | Status | Varian | Visit Notes | | | Problem/Goal | | ce | | + + +--------+--------+ + | Instruct in | Problem: SHARED | | | Patient states that | | Depression | DEPRESSIONGoal: | Comple | | she is feeling | | Management | DEPRESSION | yoel | | depressed. Change of | | Description: | UNDERSTANDING | | | life status. She has | | Instruct the patient | | | | discussed this with pcp | | and/or caregiver in | | | | and no direction given | | general measures to | | | | to patient and | | manage depression. | | | | caregiver. She sees pcp | | | | | | this next week and I | | | | | | have encouraged her to | | | | | | talk with pcp again and | | | | | | request direction with | | | | | | dealing with her | | | | | | depression status. Also | | | | | | will request elevator pilot visit. | + + +--------+--------+ + | Skilled assessment | Problem: SHARED | | | See clinical | | pain | PAIN | Comple | | assessment in today's | | | | yoel | | contact. | + + +--------+--------+ + | Shared written | Problem: SHARED | | | See pain scale. | | information for pain | PAIN | Comple | | | | | | yoel | | | + + +--------+--------+ + | Assess medications | Problem: SN | | | Reviewed patient's | | used by patient | Medication | Comple | | medication today. Son | | | Management | yoel | | states that he is giving | | | | | | his mother 2-3 | | | | | | hydrocodone 7.5/325 | | | | | | daily for c/o pain. | | | | | | Patient was recently in | | | | | | ER and states to staff | | | | | | that she is not getting | | | | | | her pain meds. Today | | | | | | she states otherwise. | | | | | | She appears comfortable. | | | | | | Resting in recliner. | | | | | | Medication review done | | | | | | today. | + + +--------+--------+ + | Educate patient | Problem: | | | Patient on 3L per n/c | | about oxygen | Oxygenation/Respirat | Comple | | per son. Oxygen | | | ory Function | yoel | | visualized. 3L per this | | | | | | nurse. No SOB noted. | | | | | | Please see respiratory | | | | | | assessment. | + + +--------+--------+ + | Assess respiratory | Problem: Respiratory | | | See clinical | | status | Status | Comple | | assessment in today's | | | | yoel | | contact. | + + +--------+--------+ + | Educate patient on | Problem: Respiratory | | | No sob noted. Patient | | energy conservation | Status | Comple | | states that she walked | | | | yoel | | down the street one | | | | | | block x2 this week. | + + +--------+--------+ + | Monitor oxygen | Problem: Respiratory | | | O2 saturation obtained | | saturation | Status | Comple | | while patient was | | | | yoel | | sitting and at rest. See | | | | | | Vitals form. | + + +--------+--------+ + documented in this encounter"
--- OUTSIDE RECORDS SUMMARY | ~2020-03-14 | XMS | Encounter Summary ---
Demographics + + + | Address | [address] | | | [place] [address] | + + + | Home Phone | | + + + | Preferred Language | Unknown | + + + | Marital Status | | + + + | Taoist Affiliation | Unknown | + + + | Race | Unknown | + + + | Ethnic Group | Unknown | + + + Author + + + | Author | [facility] | | | and [place] | + + + | Organization | [facility] | | | [...] Team Providers + +------+ + | Care Central Sterilization Technician Name | Role | Phone | [...] + + | 02/07/ | Telephone | [facility] [place] | Shikha Peace, | Referral (Follow up) | | 2020 | | [place] [address] | [place] | | | | | [place] | | | | | | [address] | | | | | | [phone] | | | +--------+ + + + [...] | | 2019 | Visit | | CINEMA OPERATOR [address] | | | | | | [place] | | | | | | [address] | | | | | | | | +--------+ + + + + | 04/11/ | Appointment | Radiology | Shawn Michael | | | 2019 | | | MD [address] | | | | | | [address] [place] | | | | | | [place] [address] | | | | | | [phone] | | | | | | | | +--------+ + + + + | 04/13/ | Office | Cardiology | Shawn Michael | | | 2019 | Visit | | MD [address] | | | | | | [address] [place] | | | | | | [place] [address] | | | | | | [phone] | | | | | | | [...]
--- OUTSIDE RECORDS SUMMARY | ~2020-03-14 | XMS | Encounter Summary ---
Demographics + + + | Address | [address] | | | [place] [address] | + + + | Home Phone [...] Team Providers + +------+ + | Care Blackjack Dealer Name | Role | Phone | + [...] [place] | | | | | | [address] | | | | | | [phone] | | | +--------+ + + + [...] | | | | | [place] [address] | | | | | | [phone] | | | | | | | | +--------+ + + + + | 04/13/ | Office | Cardiology | Shwan Michael | | | 2019 | Visit | | MD Marcelino [address] | | | | | | [address] | | | | | | [place] [address] | | | | | | [phone] | | | | | | | [...] Plan + + | Visit Type - LAUNDRY MARKER SUPERVISOR - REPEAT VISIT | | Discipline - Home Health Aide | + + + + +--------+--------+ + + | Problem | Description | Start | Status | Goals | Interventio | | | | Date | | | ns | + + +--------+--------+ + + | HH Aide Need | LAUNDRY MARKER SUPERVISOR services | | | 1 goal | [...]
--- OUTSIDE RECORDS SUMMARY | ~2020-03-14 | XMS | Encounter Summary ---
Demographics + + + | Address | [address] | | | [place] [address] | + + + | Home Phone | | + + + | Preferred Language | Unknown | + + + | Marital Status | | + + + | Oriental Orthodox Affiliation | Unknown | + + + | Race | Unknown | + + + | Ethnic Group | Unknown | + + + Author + + + | Author | [facility] | | | and [place] | + + + | Organization | [facility] | | | [...] Team Providers + +------+ + | Care Deployment Technician Name | Role | Phone | [...] | [address] [place] | [place] [address] | | | | | [address] | [phone] | | | | | [phone] | | | +--------+ + + + [...] | | | | | [place] [address] | | | | | | [phone] | | | | | | | | +--------+ + + + + | 04/13/ | Office | Cardiology | Shawn Michael | | | 2019 | Visit | | MD Marcelino [address] | | | | | | [address] | | | | | | [place] [address] | | | | | | [phone] | | | | | | | [...]
--- OUTSIDE RECORDS SUMMARY | ~2020-03-14 | XMS | Encounter Summary ---
Demographics + + + | Address | [address] | | | [place] [address] | + + + | Home Phone [...] Team Providers + +------+ + | Care Marine Technician Name | Role | Phone | [...] + + | 07/19/ | Telephone | [facility] | Nikolay, | Medication Question | | 2018 | | MEDICINE [address] [place] [address] | MD Candido | | | | | [facility] | [address] [place] [address] | | | | | [place] [address] | [place] [address] | | | | | [phone] | [phone] | | | | | | | [...] | | 2019 | Visit | | NUT BLANKER OPERATOR [address] | | | | | | [place] | | | | | | [address] | | | | | | | | +--------+ + + + + | 04/11/ | Appointment | Radiology | Shawn Michael | | | 2019 | | | MD [address] | | | | | | [address] [place] | | | | | | [place] [address] | | | | | | [phone] | | | | | | | | +--------+ + + + + | 04/13/ | Office | Cardiology | Shawn Michael | | | 2019 | Visit | | MD [address] | | | | | | [address] [place] | | | | | | [place] [address] | | | | | | [phone] | | | | | | | [...]
--- OUTSIDE RECORDS SUMMARY | ~2020-03-14 | XMS | Encounter Summary ---
Demographics + + + | Address | [address] | | | [place] [address] | + + + | Home Phone [...] Team Providers + +------+ + | Care Permit Specialist Name | Role | Phone | [...] + | 12/26/ | Home Care | [facility] [place] | Layla Pablo | CASE COMMUNICATION | | 2020 | Visit | [place] [address] | | | | | | [place] | | | | | | [address] | | | | | | [phone] | | | +--------+ + + + [...] [place] | | | | | | [address] | | | | | | | | +--------+ + + + + | 04/11/ | Appointment | Radiology | Shawn Michael | | | 2019 | | | MD Marcelino [address] | | | | | | [address] | | | | | | [place] [address] | | | | | | [phone] | | | | | | | | +--------+ + + + + | 04/13/ | Office | Cardiology | Shawn Michael | | | 2020 | Visit | | MD Marcelino [address] | | | | | | [address] | | | | | | [place] [address] | | | | | | [phone] | | | | | | | [...]
--- OUTSIDE RECORDS SUMMARY | ~2020-03-14 | XMS | Encounter Summary ---
Demographics + + + | Address | [address] | | | [place] [address] | + + + | Home Phone | | + + + | Preferred Language | Unknown | + + + | Marital Status | | + + + | Baptist Affiliation | Unknown | + + + | Race | Unknown | + + + | Ethnic Group | Unknown | + + + Author + + + | Author | [facility] | | | and [place] | + + + | Organization | [facility] [...] Team Providers + +------+ + | Care Geophysical Drafter Name | Role | Phone | + [...] [place] | | | | | | [address] | | | | | | [phone] | | | +--------+ + + + [...] | | | | | [place] [address] | | | | | | [phone] | | | | | | | | +--------+ + + + + | 04/13/ | Office | Cardiology | Shawn Michael | | | 2019 | Visit | | MD Marcelino [address] | | | | | | [address] | | | | | | [place] [address] | | | | | | [phone] | | | | | | | [...]
--- OUTSIDE RECORDS SUMMARY | ~2020-03-14 | XMS | Encounter Summary ---
Demographics + + + | Address | [address] | | | [place] [address] | + + + | Home Phone [...] Team Providers + +------+ + | Care Pharmacy Data Analyst Name | Role | Phone | [...] | +--------+ + + + + | 09/24/ | Telephone | [facility] | Nikolay, | Other | | 2018 | | MEDICINE [address] [place] [address] | MD Candido | | | | | [facility] | [address] [place] [address] | | | | | [place] [address] | [place] [address] | | | | | [phone] | [phone] | | | | | | | [...] | | 2019 | Visit | | ROLLER HELPER [address] | | | | | | [place] | | | | | | [address] | | | | | | | | +--------+ + + + + | 04/11/ | Appointment | Radiology | Shawn Michael | | | 2019 | | | MD [address] | | | | | | [address] [place] | | | | | | [place] [address] | | | | | | [phone] | | | | | | | | +--------+ + + + + | 04/13/ | Office | Cardiology | Shawn Michael | | 2019 | Visit | | MD [address] | | | | | | [address] [place] | | | | | | [place] [address] | | | | | | [phone] | | | | | | | [...]
--- OUTSIDE RECORDS SUMMARY | ~2020-03-14 | XMS | Encounter Summary ---
Demographics + + + | Address | [address] | | | [place] [address] | + + + | Home Phone | | + + + | Preferred Language | Unknown | + + + | Marital Status | | + + + | Adventism Affiliation | Unknown | + + + | Race | Unknown | + + + | Ethnic Group | Unknown | + + + Author + + + | Author | [facility] | | | and [place] | + + + | Organization | [facility] | | | [...] Team Providers + +------+ + | Care Inspector And Adjuster Golf Club Head Name | Role | Phone | + [...] Home Care | [facility] [place] | Mihir | RT REPEAT VISIT | | 2019 | Visit | [place] [address] | Adrienne Leo [address] | | | | | [place] | | | | | | [address] | | | | | | [phone] | | | +--------+ + + + [...] + +---------+ + + | Pulse | 72 | 11/29/2019 2:00 PM | | | | | PST | | + +---------+ + + | Temperature | - | - | | + +---------+ + + | Respiratory Rate | 20 | 11/29/2019 2:00 PM | | | | | PST | | + +---------+ + + | Oxygen Saturation | 91% | 11/29/2019 2:00 PM | | | | | PST [...] | 2019 | Visit | | SENIOR STOCK PLAN ADMINISTRATOR [address] | | | | | | [place] | | | | | | [address] | | | | | | | | +--------+ + + + + | 04/11/ | Appointment | Radiology | Shawn Michael | | | 2019 | | | MD [address] | | | | | | [address] [place] | | | | | | [place] [address] | | | | | | [phone] | | | | | | | | +--------+ + + + + | 04/13/ | Office | Cardiology | Shawn Michael | | | 2019 | Visit | | MD [address] | | | | | | [address] [place] | | | | | | [place], [place] [address] | | | | | | [phone] | | | | | | | [...]
--- OUTSIDE RECORDS SUMMARY | ~2020-03-14 | XMS | Encounter Summary ---
Demographics + + + | Address | [address] | | | [place] [address] | + + + | Home Phone [...] Team Providers + +------+ + | Care Overlock Hemmer Name | Role | Phone | + [...] + + | 02/09/ | Telephone | [facility] [place] | Janel, | Care Coordination | | 2020 | | POP[facility]ATION [facility] | Brittany Schulz RN | | | | | [address] | | | | | | [address] [place] | | | | | | [place] [address] | | | | | | [phone] | | | +--------+ + + + [...] | | 2019 | Visit | | HEALTH SCIENCES PROGRAM COORDINATOR [address] | | | | | | [place] | | | | | | [address] | | | | | | | | +--------+ + + + + | 04/11/ | Appointment | Radiology | Shawn Michael | | 2019 | | | MD [address] | | | | | | [address] [place] | | | | | | [place] [address] | | | | | | [phone] | | | | | | | | +--------+ + + + + | 04/13/ | Office | Cardiology | Shawn Michael | | 2019 | Visit | | MD [address] | | | | | | [address] [place] | | | | | | [place] [address] | | | | | | [phone] | | | | | | | [...]
--- OUTSIDE RECORDS SUMMARY | ~2020-03-14 | XMS | Encounter Summary ---
Demographics + + + | Address | [address] | | | [place] [address] | + + + | Home Phone [...] Providers + +------+ + | Care Software Designer Name | Role | Phone | [...] | 01/31/ | Home Care | [facility] [place] | Layla Pablo | CASE COMMUNICATION | | 2020 | Visit | [place] [address] | | | | | | [place] | | | | | | [address] | | | | | | [phone] | | | +--------+ + + + [...] [place] | | | | | | [address] | | | | | | | | +--------+ + + + + | 04/11/ | Appointment | Radiology | Shawn Michael | | | 2019 | | | MD Marcelino [address] | | | | | | [address] | | | | | | [place] [address] | | | | | | [phone] | | | | | | | | +--------+ + + + + | 04/13/ | Office | Cardiology | Shawn Michael | | 2019 | Visit | | MD Marcelino [address] | | | | | | [address] | | | | | | [place] [address] | | | | | | [phone] | | | | | | | [...]
--- OUTSIDE RECORDS SUMMARY | ~2020-03-14 | XMS | Encounter Summary ---
Demographics + + + | Address | [address] | | | [place] [address] | + + + | Home Phone [...] Team Providers + +------+ + | Care Conveyancer Name | Role | Phone | + [...] | | | | | [address] | [place] | | | | | [place], [place] | [address] | | | | | [address] | | | | | | [phone] | | | +--------+ + + + [...] Alie Aj RN | | IV | njzj-iqt-vcsyst catheter system; | | | | | [...] Patient room; | | | | | Logistics Director; Rosio Kim RN; | | | | [...] number (specify) | | | | | (Shot Stats power picc solo triple | | | | | lumen LOT [id number]); 5 Fr, length | | | | [...] | | 2019 | Visit | | LOAF COUNTER [address] | | | | | | [place] | | | | | | [address] | | | | | | | | +--------+ + + + + | 04/11/ | Appointment | Radiology | Shawn Michael | | | 2019 | | | MD [address] | | | | | | [address] [place] | | | | | | [place] [address] | | | | | | [phone] | | | | | | | | +--------+ + + + + | 04/13/ | Office | Cardiology | Shawn Michael | | | 2019 | Visit | | MD [address] | | | | | | [address] [place] | | | | | | [place] [address] | | | | | | [phone] | | | | | | | [...]
--- OUTSIDE RECORDS SUMMARY | ~2020-03-14 | XMS | Encounter Summary ---
Demographics + + + | Address | [address] | | | [place] [address] | + + + | Home Phone [...] Team Providers + +------+ + | Care Web Merchant Name | Role | Phone | + [...] + | 01/03/ | Home Care | [facility] [place] | Wanda Barbosa, | SN REPEAT VISIT | | 2019 | Visit | [place] [address] | RN | | | | | [place] | | | | | | [address] | | | | | | [phone] | | | +--------+ + + + [...] + + + | Blood Pressure | 130/72 | 01/04/2020 9:46 AM | | | | | PDT | | + + + + + | Pulse | 78 | 01/04/2020 9:46 AM | | | | | PDT | | + + + + + | Temperature | 36.8 C (98.3 F) | 01/04/2020 9:46 AM | | | | | PDT | | + + + + + | Respiratory Rate | 18 | 01/04/2020 9:46 AM | | | | | PDT | | + + + + + | Oxygen Saturation | 95% | 01/04/2020 9:46 AM | | | | | PDT [...] + documented in this encounter Progress Notes Lili Munguia LPN - 01/04/2020 10:30 AM Yadira Black notified, states OT coming to patient' s home documented in thi s encounter Plan of Treatment +--------+ + + + + | Date | Type | Specialty | Care Team | Description | +--------+ + + + + | 03/23/ | Office | Anticoagulation | García Harris, | | 2019 | Visit | | [place] | | | | | | [place] | | | | | | [id number] | | | | | | | | +--------+ + + + + | 04/11/ | Appointment | Radiology | Shawn Michael | | 2019 | | | MD Marcelino [address] | | | | | | [address] | | | | | | [place] [address] | | | | | | [phone] | | | | | | | | +--------+ + + + + | 04/13/ | Office | Cardiology | Shawn Michael | | | 2020 | Visit | | MD Marcelino [address] | | | | | | [address] | | | | | | [place] [address] | | | | | | [phone] | | | | | | | [...] | | | | ns | | Senior Living | | | [...] Problem: HH SHARED | | | Pt and son inst that | | prevention | AT RISK FOR PRESSURE | Comple | | pt must get off her back | | Description: | ULCER | yoel | | side every hour and | | Instruct PT/CG in | | | | twice daily for an hour | | ways to prevent skin | | | | or so at a time to | | breakdown which | | | | increase blood flow to | | includes frequent | | | | that area. | | position changes, | | | [...] CHF | Problem: Heart | | | Pt and CG inst of CHF | | Management | Failure/CHFGoal: HH | Comple | | and s/s exacerbation. | | Description: | Heart Failure | yoel | | Pt inst decrease sodium, | | Instruct the patient | | | | elevate legs | | and/or caregiver in | | | | | | strategies to | | | | | | manage CHF. | | | | | + + +--------+--------+ + | Assess/monitor | Problem: | | | See Resp assessment | | respiratory status | Oxygenation/Respirat | [...] Instruct in energy | | | | demonstrated , | | conservation | | | | [...]
--- OUTSIDE RECORDS SUMMARY | ~2020-03-14 | XMS | Encounter Summary ---
Demographics + + + | Address | [address] | | | [place] [address] | + + + | Home Phone [...] Team Providers + +------+ + | Care Plug Cutting Machine Operator Name | Role | Phone [...] + | 12/30/ | Home Care | [facility] [place] | Manisha Rivas, | SN REPEAT VISIT | | 2019 | Visit | [place] [address] | [place] | | | | | [place] | | | | | | [address] | | | | | | [phone] | | | +--------+ + + + [...] + + + | Blood Pressure | 112/54 | 12/31/2019 3:13 PM | | | | | PDT | | + + + + + | Pulse | 81 | 12/31/2019 3:13 PM | | | | | PDT | | + + + + + | Temperature | 37.1 C (98.7 F) | 12/31/2019 3:13 PM | | | | | PDT | | + + + + + | Respiratory Rate | 22 | 12/31/2019 3:13 PM | | | | | PDT | | + + + + + | Oxygen Saturation | 93% | 12/31/2019 3:13 PM | | | | | PDT [...] [place] | | | | | | [address] | | | | | | | | +--------+ + + + + | 04/11/ | Appointment | Radiology | Shawn Michael | | | 2019 | | | MD Marcelino [address] | | | | | | [address] | | | | | | [place] [address] | | | | | | [phone] | | | | | | | | +--------+ + + + + | 04/13/ | Office | Cardiology | Shawn Michael | | | 2019 | Visit | | MD Marcelino [address] | | | | | | [address] [place] | | | | | | [place] [address] | | | | | | [phone] | | | | | | | [...] - REPEAT VISIT | | Discipline - Snf | + + + + +--------+--------+ + [...] 020 | | | interventio | | Snf | | | | | n | [...] 020 | | | interventio | | Snf | | | | | n | [...] | | Active | | | | Snf | | 020 | | | interventio [...] | | Active | | | | Snf | | 020 | | | interventio [...] 020 | | | interventio | | Snf | | | | | n | | | | | | | scheduled/d | | | | | | | ocumented | | | | | | | in this | | | | | | | visit | + + +--------+--------+ + + | Health Promotion | Immunizations | | | - | 2 problem | | Disciplines: | | | Active | | | | Snf, | | 020 | | | interventio | | Physical Therapy, | | | | | ns | | Occupational | | | | | scheduled/d | | Therapy, Home Health | | | | | ocumented | | Jana Support Staff, | | | | | in this | | Respiratory Therapy | | | | | visit | + + +--------+--------+ + + | Heart Failure/CHF | Heart | | | 1 goal | 1 goal | | Disciplines: | Failure/CHF | | Active | linked to | interventio | | Snf | | 020 | | scheduled/d | [...] | | | | ns | | Snf | | | | | scheduled/d | [...] | | Active | | | | Snf | | 020 | | | interventio [...] to | | | | | | SALES CONSULTANT for counseling | | | | | [...] | | | | | indicated per [facility] | | | | | | Guidelines: [...] | | + + +--------+--------+ + | Teach | Problem: Health | | | | | Description: | Promotion | Comple | | | | Provided [facility] | | yoel | | | | Handout. Provided | [...] Instruct in energy | | | | instructed with patient. | | conservation | | | | The patient and/or | | breathing technique. | | | | caregiver verbalized | [...]
--- OUTSIDE RECORDS SUMMARY | ~2020-03-14 | XMS | Encounter Summary ---
Demographics + + + | Address | [address] | | | [place] [address] | + + + | Home Phone | | + + + | Preferred Language | Unknown | + + + | Marital Status | | + + + | Denominational Affiliation | Unknown | + + + | Race | Unknown | + + + | Ethnic Group | Unknown | + + + Author + + + | Author | [facility] | | | and [place] | + + + | Organization | [facility] | | | [...] + +------+ + | Care Research And Development Tester Name | Role | Phone | [...] + + | 01/03/ | Telephone | [facility] | Lina Correa | Medication Prior | | 2020 | | PULMONARY [address] | MD Jan [address] | Authorization | | | | [place], | [address] [place] | | | | | [place] [address] | [place] [address] | | | | | [phone] | [phone] | | | | | | | [...] | | 2019 | 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
--- OUTSIDE RECORDS SUMMARY | ~2020-03-14 | XMS | Encounter Summary ---
Demographics + + + | Address | [address] | | | [place] [address] | + + + | Home Phone [...] Team Providers + +------+ + | Care Corporate Quality Manager Name | Role | Phone | + +------+ + | Candido Link | PCP | | | MD | | | + +------+ + Reason for Visit + + + | Reason | Comments | + + + | Medication | | | Management | | + + + | Anxiety | | + + + Encounter Details +--------+---------+ + + + | Date | Type | Department | Care Team | Description | +--------+---------+ + + + | 08/12/ | [facility] | [facility] | Yana-Lani, | ANASTASIA (generalized | | 2019 | Visit | MEDICINE [address] | MD Candido | anxiety disorder) | | | | [facility] | [address] [place] [address] | (Primary Dx); Skin | | | | [place] [address] | [place] [address] | tag; Actinic | | | | [phone] | [phone] | keratosis | | | | | | | +--------+---------+ + + + [...] + + + | Blood Pressure | 112/50 | 08/12/2019 1:01 PM | | | | | PST | | + + + + + | Pulse | 100 | 08/12/2019 1:01 PM | | | | | PST | | + + + + + | Temperature | 36.6 C (97.8 F) | 08/12/2019 1:01 PM | | | | | PST | | + + + + + | Respiratory Rate | 18 | 08/12/2019 1:01 PM | | | | | PST | | + + + + + | Oxygen Saturation | 95% | 08/12/2019 1:01 PM | 3 L O2 | | | | PST | | + + + + + | Inhaled Oxygen | - | - | | | Concentration | | | | + + + + + | Weight | 55.1 kg (121 lb 7.6 | 08/12/2019 1:01 PM | | | | oz) | PST | | + + + + + | Height | - | - | | + + + + + | Body Mass Index | 20.21 | 08/09/2019 11:14 AM | | | | | PST | | + + + + + documented in this encounter Progress Notes Funmilayo Linky, MD - 08/12/2019 1:00 PM PSTFormatting of this note might be d ifferent from the original. CHIEF COMPLAINT Chief Complaint Patient presents with Medication Management Anxiety HPI Ángela Crowley is a 89 y.o. y/o female who presents today for several issues: Mirtazapine, has not been working well for Ángela, per her POA. They have many side effects, gives her anger issues panic attacks and anxiety. Has /o ANASTASIA. Would like to try something else. Has also mild case of depression. Pt states not every night she has a good night sleep. She has several skin lesions on her anterior chest that she wanted me to look at today, and to have them removed or treated if possible. ASSESSMENT & PLAN 1. ANASTASIA (generalized anxiety disorder) -Start escitalopram (LEXAPRO) 5 MG tablet; Take 1 tablet by mouth Daily. Dispense: 30 tabl et; Refill: 3 2. Skin tag -One skin tag was removed today from her anterior neck on the left side , after thoroughly cleaning the area with alcohol. Minimal bleeding which was contained with silver nitrate. Topical Band-Aid applied. Informed consent obtained. 3. Actinic keratosis -1 actinic keratosis lesion on the right anterior chest was destroyed with liquid nitrogen in the office today. REVIEW OF SYSTEMS Review of Systems Constitutional: Negative. HENT: Negative. Eyes: Negative. Respiratory: Negative. Cardiovascular: Negative. Gastrointestinal: Negative. Endocrine: Negative. Genitourinary: Negative. Musculoskeletal: Negative. Skin: Skin tag, skin lesions Neurological: Negative. Psychiatric/Behavioral: The patient is nervous/anxious. PHYSICAL EXAM VITAL SIGNS: BP 112/50 | Pulse 100 | Temp 36.6 C (97.8 F) (Temporal) | Resp 18 | Wt 55.1 kg (121 lb 7.6 oz) | SpO2 95% Comment: 3 L O2 | BMI 20.21 kg/m Constitutional: Well developed, No acute distress, Pleasant female. Cardiovascular: Regular rate & rhythm, No murmurs, No rubs, No gallops. No lower extremitie s edema. Thorax & Lungs: Normal chest, No respiratory distress, No crackles, wheezing, or rubs. Skin: Skin tag lesion on the lower neck on the left on the anterior side, with some scaling . She also has a lesion on her right anterior chest with a diameter of about 1.2 cm, with s delon surface, suggestive of actinic keratosis. Musculoskeletal: Decreased range of motion in all major joints. Using walker. Neurologic: Alert & oriented x 3,No focal deficits noted. Psychiatric: Affect normal, Judgment [...] Flex Sig; Surgeon: Edwin Stoddard MD; Location: [facility] PROCEDURE [facility] HYSTERECTOMY NIRMAL AND BSO TONSILLECTOMY AND ADENOIDECTOMY UPPER GASTROINTESTINAL ENDOSCOPY N/A 06/07/2019 Procedure: EGD; Surgeon: Edwin Stoddard MD; Location: [facility] MEDICAL PROCEDURE [facility] CURRENT MEDICATIONS Current [...] Code J44.90 180 mL 3 busPIRone (BUSPAR) 5 mg tablet Take 1 tablet by mouth 3 times daily as needed. (Patient not taking: Reported on 08/12/2019) 60 tablet 2 calcium carbonate (TUMS EX) 750 MG [...] Take 600 Units by mouth every morning. 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 Notes: 1. Parts of this documentwere created using [employer] speech recognition software. As a resu lt, there may be unintended word spelling errors. Every attempt was made to correct the di ctation. 2. I, Dalton Link MD, personally provided the services described in this documen tation, as scribed by CRISTINA Mazariegos, in my presence, and it is both accurate an d complete. Dalton Link MD documente d in this encounter Plan of Treatment +--------+ + + + + | Date | Type | Specialty | Care Team | Description | +--------+ + + + + | 03/23/ | Office | Anticoagulation | García Harris, | | | 2019 | Visit | | [place] | | | | | | [place] | | | | | | [id number] | | | | | | | | +--------+ + + + + | 04/11/ | Appointment | Radiology | Shawn Michael | | 2019 | | | MD Marcelino [address] | | | | | | [address] | | | | | | [place] [address] | | | | | | [phone] | | | | | | | | +--------+ + + + + | 04/13/ | Office | Cardiology | Shawn Michael | | | 2020 | Visit | | MD Marcelino [address] | | | | | | [address] [place] | | | | | | [place] [address] | | | | | | [phone] | | | | | | | | +--------+ + + + + documented as of this encounter Visit Diagnoses + + | Diagnosis | + + | ANASTASIA (generalized anxiety disorder) - Primary Generalized anxiety disorder | + + | Skin tag Unspecified hypertrophic and atrophic condition of skin | + + | Actinic keratosis | + + documented in this encounter Additional Health Concerns + + + + | Infection | Noted Time | Resolved Time | + + + + | Methicillin-resistant Staphylococcus aureus | 06/08/2019 9:39 AM | | | | PDT | | + + + + documented as of this encounter"
--- OUTSIDE RECORDS SUMMARY | ~2020-03-14 | XMS | Encounter Summary ---
Demographics + + + | Address | [address] | | | [place] [address] | + + + | Home Phone [...] Providers + +------+ + | Care Aircraft Launch And Recovery Technician Name | Role | Phone | [...] | +--------+ + + + + | 09/28/ | Home Care | [facility] [place] | Annie Kyle, | OT REPEAT VISIT | | 2018 | Visit | [place] [address] | [place] | | | | | [place] | | | | | | [address] | | | | | | [phone] | | | +--------+ + + + [...] + + + | Blood Pressure | 97/58 | 09/28/2019 12:56 PM | | | | | PST | | + + + + + | Pulse | 96 | 09/28/2019 12:56 PM | | | | | PST | | + + + + + | Temperature | 36.6 C (97.9 F) | 09/28/2019 12:56 PM | | | | | PST | | + + + + + | Respiratory Rate | - | - | | + + + + + | Oxygen Saturation | 95% | 09/28/2019 12:56 PM | | | | | PST [...] [place] | | | | | | [id number] | | | | | | | | +--------+ + + + + | 04/11/ | Appointment | Radiology | Shawn Michael | | 2019 | | | MD Marcelino [address] | | | | | | [address] | | | | | | [place] [address] | | | | | | [phone] | | | | | | | | +--------+ + + + + | 04/13/ | Office | Cardiology | Shawn Michael | | | 2019 | Visit | | MD Marcelino [address] | | | | | | [address] [place] | | | | | | [place] [address] | | | | | | [phone] | | | | | | | [...] need | | | 1 goal | | | Disciplines: | | 09/15/ | Active | linked to | | | Occupational Therapy | | 2019 [...] OT HEP NEED | | No | Patient is provided | | EXERCISE PROGRAM | | Ongoin | | with UE ROM HEP to | | (HEP) NEED | | g, | | address COPD issues and | | Description: The | | progre | | encourage general | | patient and/or | | ssing | | overall movement. | | caregiver will be | | | | Patient benefits from | | independent in the | | | | demonstration, verbal | | home exercise | | | | cues, and tactile assist | | program. | | | | for joint protection | | | | | | and quality ROM. | | | | | | Exercises were began in | | | | | | sitting, but secondary | | | | | | to noisy children in the | | | | | | vicinity, patient was | | | | | | taken to her bedroom, | | | | | | and exercises were | | | | | | continued supine on her | | | | | | bed. Patient is | | | | | | provided with handout | | | | | | with drawings and | | | | | | written explanations for | | | | | | these new exercises. | + + +--------+-------+ + documented in this encounter"
--- OUTSIDE RECORDS SUMMARY | ~2020-03-14 | XMS | Encounter Summary ---
Demographics + + + | Address | [address] | | | [place] [address] | + + + | Home Phone [...] Team Providers + +------+ + | Care Wastewater Treatment Operator Name | Role | Phone | [...] Description | +--------+--------+ + + + | 12/22/ | Refill | [facility] | Nikolay, | Medication Refill | | 2019 | | [address]ICINE [address] | MD Candido | | | | | [facility] | [address] [place] [address] | | | | | [place] [address] | [place] [address] | | | | | [phone] | [phone] | | | | | | | [...] | | 2019 | Visit | | DOOR [employer] DOOR LEAD GENERATION [address] | | | | | | [place] | | | | | | [address] | | | | | | | | +--------+ + + + + | 04/11/ | Appointment | Radiology | Shawn Michael | | | 2019 | | | MD [address] | | | | | | [address] [place] | | | | | | [place] [address] | | | | | | [phone] | | | | | | | | +--------+ + + + + | 04/13/ | Office | Cardiology | Shawn Michael | | | 2019 | Visit | | MD [address] | | | | | | [address] [place] | | | | | | [place], [place] [address] | | | | | | [phone] | | | | | | | [...]
--- OUTSIDE RECORDS SUMMARY | ~2020-03-14 | XMS | Encounter Summary ---
Demographics + + + | Address | [address] | | | [place] [address] | + + + | Home Phone [...] Team Providers + +------+ + | Care Trade Show Specialist Name | Role | Phone | [...] | 12/12/ | Home Care | [facility] [place] | Layla Pablo | CASE COMMUNICATION | | 2020 | Visit | [place] [address] | | | | | | [place] | | | | | | [address] | | | | | | [phone] | | | +--------+ + + + [...] [place] | | | | | | [address] | | | | | | | | +--------+ + + + + | 04/11/ | Appointment | Radiology | Shawn Michael | | | 2019 | | | MD Marcelino [address] | | | | | | [address] | | | | | | [place] [address] | | | | | | [phone] | | | | | | | | +--------+ + + + + | 04/13/ | Office | Cardiology | Shwan Michael | | | 2020 | Visit | | MD Marcelino [address] | | | | | | [address] | | | | | | [place] [address] | | | | | | [phone] | | | | | | | [...]
--- OUTSIDE RECORDS SUMMARY | ~2020-03-14 | XMS | Encounter Summary ---
Demographics + + + | Address | [address] | | | [place] [address] | + + + | Home Phone [...] Team Providers + +------+ + | Care Landfill Attendant Name | Role | Phone | + +------+ + | Candido Link | PCP | | | MD | | | + +------+ + Reason for Visit + + + | Reason | Comments | + + + | Follow-up | | + + + | Recurrent Urinary | | | Tract Infection | | + + + Evaluate & [...] | | | , [address] | [place] [address] | | | | | | [address] | Phone: | | | | | | [place], | [phone] | | | | | | [place] | Fax: | | | | | | [address] | [phone] | | | | | | Phone: | | | | | | | [phone] | | | | | | | Fax: | | | | | | | [phone] | | + + + + + + + Encounter Details +--------+---------+ + + + | Date | Type | Department | Care Team | Description | +--------+---------+ + + + | 10/12/ | Office | [facility] | Jag Anthony | 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) (Primary | | | | [place] | [address] [place] | Dx); Recurrent UTI; | | | | [address] | [id number] | Urge incontinence; | | | | [phone] | | Atrophic vaginitis | +--------+---------+ + [...] + + + | Blood Pressure | 112/60 | 10/12/2019 11:50 AM | | | | | PST | | + + + + + | Pulse | 100 | 10/12/2019 11:50 AM | | | | | PST | | + + + + + | Temperature | - | - | | + + + + + | Respiratory Rate | 18 | 10/12/2019 11:50 AM | | | | | PST | | + + + + + | Oxygen Saturation | - | - | | + + + + + | Inhaled Oxygen | - | - | | | Concentration | | | | + + + + + | Weight | 53 kg (116 lb 13.5 | 10/12/2019 11:50 AM | | | | oz) | PST | | + + + + + | Height | 165.1 cm (5' 5") | 10/12/2019 11:50 AM | | | | | PST | | + + + + + | Body Mass Index | 19.44 | 10/12/2019 11:50 AM | | | | | PST | | + + + + + documented in this encounter Progress Notes Jag Anthony MD - 10/12/2019 11:30 AM PSTFormatting of this note might be differ ent from the original. Chief Complaint Patient presents with Follow-up Recurrent Urinary Tract Infection HPI Ángela Crowley is a 89 y.o. female patient of Candido Link MD here toda y for a follow up for recurrent urinary tract infection. Over the last year has had progressive urinary symptoms, recurrent UTI OAB, urge incontinence Patient was recently started on oxybutynin. She reports improvement in her OAB and urge in continence symptoms. She does complain of dry mouth however this is minimal. She denies an y dysuria or gross hematuria. The patient's son does report that she had a fall however he does not think this is related to the oxybutynin. Patient also continues to use estrogen cream and reports satisfactory results. She denies any recent urinary tract infections Assessment Ángela was seen today for follow-up and recurrent urinary tract infection. Diagnoses and all orders for this visit: OAB (overactive bladder) Recurrent UTI Urge incontinence Atrophic vaginitis Plan Patient to follow-up in 6 months for reevaluation. Continue with oxybutynin Past Medical History Past Medical History: Diagnosis Date Aortic stenosis COPD (chronic obstructive pulmonary disease) (HCC) Coronary artery disease Kidney stone Rheumatic fever Tuberculosis Venereal disease Past Surgical History Past Surgical History: Procedure Laterality Date 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 CHOLECYSTECTOMY COLONOSCOPY N/A 06/11/2019 Procedure: COLONOSCOPY-Possible Flex Sig; Surgeon: Edwin Stoddard MD; Location: [facility] HYSTERECTOMY NIRMAL AND BSO TONSILLECTOMY AND ADENOIDECTOMY UPPER GASTROINTESTINAL ENDOSCOPY N/A 06/07/2019 Procedure: EGD; Surgeon: Edwin Stoddard MD; Location: [facility] UPPER GASTROINTESTINAL ENDOSCOPY N/A 08/20/2019 Procedure: EGD; Surgeon: John Grimes MD; Location: [facility] Family History: Family History [...] 3 atorvaSTATin (LIPITOR) 20 mg tablet, Take 1 tablet by mouth every morning., Disp: 90 t ablet, Rfl: 0 bacitracin 500 UNIT/GM ointment, Apply 1 Application topically 2 times daily. To bedso re on buttocks, Disp: , Rfl: bisacodyl (DULCOLAX) 5 mg EC tablet, Take 5 mg by mouth Daily., Disp: , Rfl: brimonidine (ALPHAGAN) 0.2% ophthalmic solution, Place 1 drop into both eyes 2 times d aily., Disp: , Rfl: 12 budesonide (PULMICORT) 0.5 mg/2 mL nebulizer solution, Take 2 mLs by nebulization 2 ti mes daily. Dx Code J44.90 (Patient taking differently: Take 0.5 mg by nebulization 4 times d aily. Dx Code J44.90), Disp: 180 mL, Rfl: 3 calcium carbonate (TUMS EX) 750 MG chewable tablet, Take 2 tablets by mouth Daily as n eeded for Heartburn., Disp: , Rfl: CALCIUM CARBONATE PO, Take 1,000 mg by mouth Daily., Disp: , Rfl: carvedilol (COREG) 12.5 mg tablet, Take 1 tablet by mouth 2 times daily (with breakfas t & dinner)., Disp: 60 tablet, Rfl: 0 carvedilol (COREG) 6.25 mg tablet, Take 6.25 mg by mouth 2 times daily (with breakfast & dinner)., Disp: , Rfl: Cholecalciferol (VITAMIN D PO), Take 600 Units by mouth every morning., Disp: , Rfl: CRANBERRY CONCENTRATE PO, Take 15,000 mg by mouth Daily., Disp: , Rfl: dicyclomine (BENTYL) 10 mg capsule, Take 1 capsule by mouth Daily as needed for Other (As needed for abdominal cramps)., Disp: 30 capsule, Rfl: 0 docusate sodium (COLACE) 250 MG capsule, Take 250 mg by mouth every morning. Hold for loose stools, Disp: , Rfl: dorzolamide (TRUSOPT) 2% ophthalmic solution, Place 1 drop into both eyes 2 times patrice y., Disp: , Rfl: 12 EQ ALLERGY RELIEF, CETIRIZINE, 10 MG tablet, TAKE 1 TABLET BY MOUTH ONCE DAILY, Disp: 30 tablet, Rfl: 1 ertapenem (INVanz) IVPB (custom dose) 1 g, Inject 1 g into the vein every 24 hours. In dications: Acute Abdominal Condition, Disp: 10 each, Rfl: 0 escitalopram (LEXAPRO) 5 MG tablet, Take 1 tablet by mouth Daily., Disp: 30 tablet, Rf l: 3 estradiol (ESTRACE VAGINAL) 0.1 mg/g vaginal cream, [...] mouth Daily., Disp: 90 tablet, Rfl: 1 heparin 10 units/mL flush injection, Inject 5 mLs into the vein Daily., Disp: , Rfl: HYDROcodone-acetaminophen (NORCO) 7.5-325 mg per tablet, Take 1 tablet by mouth every 6 hours as needed for Pain., Disp: 120 tablet, Rfl: 0 latanoprost (XALATAN) 0.005% ophthalmic solution, Place 1 drop into both eyes nightly. , Disp: , Rfl: 12 metoprolol succinate (TOPROL-XL) 25 mg 24 hr tablet, Take 1 tablet by mouth nightly., Disp: 90 tablet, Rfl: 1 Multiple Vitamins-Minerals (PRESERVISION AREDS 2) CAPS, Take 1 capsule by mouth 2 time s daily., Disp: , Rfl: nitroglycerin (NITROSTAT) 0.4 mg SL tablet, Place 0.4 mg under the tongue every 5 dandre annetta as needed for Chest pain., Disp: , Rfl: ondansetron (ZOFRAN ODT) 4 mg disintegrating tablet, Take 1 tablet by mouth every 8 ho urs as needed for Nausea., Disp: 90 tablet, Rfl: 2 oxybutynin (DITROPAN-XL) 10 MG 24 hr tablet, Take 1 tablet by mouth Daily., Disp: 30 t ablet, Rfl: 3 oxygen, Inhale 3 L into the lungs continuous. ALETHEA: 99 months., Disp: 1 Container, Rfl: 2 pantoprazole (PROTONIX) 40 mg tablet, Take 1 tablet by mouth every morning (before nikolay akfast)., Disp: 90 tablet, Rfl: 1 polyethylene glycol (MIRALAX) packet, Take 1 diluted packet by mouth Daily as needed f or Constipation., Disp: , Rfl: 0 Polyethylene Glycol 3350 POWD, Take 17 g by mouth Daily as needed for Constipation., D isp: , Rfl: polyvinyl alcohol (LIQUITEARS) 1.4% ophthalmic solution, Place 2 drops into both eyes every morning., Disp: , Rfl: predniSONE (DELTASONE) 10 mg tablet, Take 10 mg by mouth Daily., Disp: , Rfl: Respiratory Therapy Supplies MISC, Replacement O2 mask. Please evaluate and provide an O2 mask that is more useful to the patient. Duration: Lifetime Dx: COPD, severe J44.9, Disp : 1 each, Rfl: 0 senna (SENOKOT) 8.6 mg tablet, Take by mouth Twice daily as needed for Constipation. , Disp: 14 tablet, Rfl: Sodium Chloride Flush (SODIUM CHLORIDE 0.9%) flush, Inject 10 mLs into the vein 2 time s daily., Disp: , Rfl: SPIRIVA HANDIHALER 18 MCG inhalation capsule, Inhale 18 mcg into the lungs Daily., Dis p: , Rfl: 3 UNABLE TO FIND, Adult Pull ups, medium size, Disp: 100 each, Rfl: 3 Review of Systems Constitutional: Negative for chills and fever. Respiratory: Positive for cough and wheezing. Gastrointestinal: Negative for nausea and vomiting. Objective BP 112/60 | Pulse 100 | Resp 18 | Ht 1.651 m (5' 5") | Wt 53 kg (116 lb 13.5 oz) | BMI 19.44 kg/m General Appearance: Alert, cooperative, no distress, [...] delayed get up and go test; decreased boring machine operator production strength bilaterally Data: Results for orders placed or performed during the hospital encounter of 09/01/19 Culture, Blood Result Value Ref Range Culture No growth after 5 days incubation. Culture, Blood Result Value Ref Range Culture No growth after 5 days incubation. CBC with Differential Result Value Ref Range WBC 17.1 (H) 4.0 - 11.0 K/uL RBC 3.53 (L) 3.70 - 5.20 M/uL Hemoglobin 10.3 (L) 11.5 - 16.0 g/dL Hematocrit 33.3 (L) 34.0 - 47.0 % MCV 94.3 83.0 - 101.0 fL MCH 29.2 28.0 - 35.0 pg MCHC 30.9 (L) 32.0 - 36.0 g/dL RDW-CV 16.1 (H) <15.0 % RDW-SD 55.9 (H) 35.1 - 46.3 fL Platelet Count 185 140 - 440 K/uL MPV 9.5 6.5 - 12.4 fL % Neutrophils 84.0 (H) 45.0 - 82.0 % % Lymphocytes 7.6 (L) 20.0 - 45.0 % % Monocytes 7.3 4.0 - 12.0 % % Eosinophils 0.6 0.0 - 5.0 % % Basophils 0.1 0.0 - 1.0 % % Immature Granulocytes 0.4 0.0 - 0.4 % Absolute Neutrophils 14.34 (H) 1.80 - 8.50 K/uL Absolute Lymphocytes 1.30 0.60 - 3.20 K/uL Absolute Monocytes 1.25 (H) 0.00 - 1.00 K/uL Absolute Eosinophils 0.10 0.00 - 0.40 K/uL Absolute Basophils 0.02 0.00 - 0.10 K/uL Absolute Immature Granulocytes 0.06 (H) 0.00 - 0.03 K/uL % nRBC 0 0 - 2 per 100 WBCs Absolute nRBC 0.00 0.00 - 0.01 K/uL Comprehensive Metabolic Panel Result Value Ref Range Na 142 136 - 145 mmol/L K 3.9 3.4 - 5.1 mmol/L Cl 106 98 - 107 mmol/L CO2 32 (H) 20 - 31 mmol/L Anion Gap 4 3 - 16 mmol/L Glucose 85 60 - 106 mg/dL BUN 25 (H) 9 - 23 mg/dL Creatinine 0.68 0.55 - 1.02 mg/dL eGFR if not >60 >=60 mL/min/1.73m2 Calcium 8.6 (L) 8.7 - 10.4 mg/dL Albumin 3.2 3.2 - 4.8 g/dL Bilirubin Total 0.5 0.3 - 1.2 mg/dL Total Protein 5.2 (L) 5.7 - 8.2 g/dL AST 18 0 - 34 U/L ALT 29 10 - 49 U/L Alkaline Phosphatase 112 46 - 116 U/L Globulin 2.0 (L) 2.1 - 3.8 g/dL Albumin/Globulin Ratio 1.6 0.8 - 1.9 BUN/Creatinine Ratio 36.8 Lipase Result Value Ref Range Lipase 37 12 - 53 U/L Troponin I Result Value Ref Range Troponin I 0.35 (H) <0.06 ng/mL Urinalysis With Microscopic Result Value Ref Range Color, Urine Yellow Light Yellow, Yellow, Straw Clarity Clear Clear pH, Urine 5.0 5.0 - 8.0 Specific [place] 1.027 1.001 - 1.030 Protein, Urine Negative Negative Blood, Urine Negative Negative Glucose, Urine Negative Negative Ketones, Urine Negative Negative Bilirubin, Urine Negative Negative Nitrite, Urine Negative Negative Leukocyte Esterase, Urine Negative Negative Urobilinogen, Urine Negative 0.2 mg/dL, 1.0 mg/dL, Negative WBC UA 0-2 0 - 2 /HPF RBC UA 2-5 (A) 0 - 2 /HPF SQUAMOUS EPITHELIAL UA 2-5 (A) 0 - 2 /LPF BACTERIA UA Negative Negative /HPF BUDDING YEAST UA Few (A) Negative Lactic Acid Result Value Ref Range Lactate 0.8 0.5 - 2.2 mmol/L Extra Blue Top Tube Result Value Ref Range Extra Blue Top Tube Done CBC with Differential Result Value Ref Range WBC 19.1 (H) 4.0 - 11.0 K/uL RBC 3.60 (L) 3.70 - 5.20 M/uL Hemoglobin 10.5 (L) 11.5 - 16.0 g/dL Hematocrit 33.7 (L) 34.0 - 47.0 % MCV 93.6 83.0 - 101.0 fL MCH 29.2 28.0 - 35.0 pg MCHC 31.2 (L) 32.0 - 36.0 g/dL RDW-CV 16.2 (H) <15.0 % RDW-SD 55.3 (H) 35.1 - 46.3 fL Platelet Count 138 (L) 140 - 440 K/uL MPV 10.5 6.5 - 12.4 fL Immature Platelet Fraction % Neutrophils 86.8 (H) 45.0 - 82.0 % % Lymphocytes 5.6 (L) 20.0 - 45.0 % % Monocytes 6.3 4.0 - 12.0 % % Eosinophils 0.5 0.0 - 5.0 % % Basophils 0.2 0.0 - 1.0 % % Immature Granulocytes 0.6 (H) 0.0 - 0.4 % Absolute Neutrophils 16.55 (H) 1.80 - 8.50 K/uL Absolute Lymphocytes 1.06 0.60 - 3.20 K/uL Absolute Monocytes 1.20 (H) 0.00 - 1.00 K/uL Absolute Eosinophils 0.10 0.00 - 0.40 K/uL Absolute Basophils 0.04 0.00 - 0.10 K/uL Absolute Immature Granulocytes 0.11 (H) 0.00 - 0.03 K/uL % nRBC 0 0 - 2 per 100 WBCs Absolute nRBC 0.00 0.00 - 0.01 K/uL Comprehensive Metabolic Panel Result Value Ref Range Na 142 136 - 145 mmol/L K 4.5 3.4 - 5.1 mmol/L Cl 109 (H) 98 - 107 mmol/L CO2 26 20 - 31 mmol/L Anion Gap 7 3 - 16 mmol/L Glucose 83 60 - 106 mg/dL BUN 23 9 - 23 mg/dL Creatinine 0.70 0.55 - 1.02 mg/dL eGFR if not >60 >=60 mL/min/1.73m2 Calcium 8.1 (L) 8.7 - 10.4 mg/dL Albumin 3.1 (L) 3.2 - 4.8 g/dL Bilirubin Total 0.5 0.3 - 1.2 mg/dL Total Protein 4.9 (L) 5.7 - 8.2 g/dL AST 23 0 - 34 U/L ALT 26 10 - 49 U/L Alkaline Phosphatase 117 (H) 46 - 116 U/L Globulin 1.8 (L) 2.1 - 3.8 g/dL Albumin/Globulin Ratio 1.7 0.8 - 1.9 BUN/Creatinine Ratio 32.9 Magnesium Result Value Ref Range Magnesium 1.9 1.6 - 2.6 mg/dL Troponin I Result Value Ref Range Troponin I 0.39 (H) <0.06 ng/mL Lactic Acid Result Value Ref Range Lactate 0.7 0.5 - 2.2 mmol/L Urinalysis, Microscopic Only, with Culture if Indicated Result Value Ref Range WBC UA 0-2 0 - 2 /HPF RBC UA 2-5 (A) 0 - 2 /HPF SQUAMOUS EPITHELIAL UA 10-15 (A) 0 - 2 /LPF BACTERIA UA Negative Negative /HPF MUCUS UA Present (A) Negative /LPF BUDDING YEAST UA Few (A) Negative URINE COMMENT Urine Culture Not Indicated CBC no Differential Result Value Ref Range WBC 18.1 (H) 4.0 - 11.0 K/uL RBC 3.37 (L) 3.70 - 5.20 M/uL Hemoglobin 9.8 (L) 11.5 - 16.0 g/dL Hematocrit 32.9 (L) 34.0 - 47.0 % MCV 97.6 83.0 - 101.0 fL MCH 29.1 28.0 - 35.0 pg MCHC 29.8 (L) 32.0 - 36.0 g/dL RDW-CV 16.3 (H) <15.0 % RDW-SD 58.5 (H) 35.1 - 46.3 fL Platelet Count 169 140 - 440 K/uL MPV 9.9 6.5 - 12.4 fL % nRBC 0 0 - 2 per 100 WBCs Absolute nRBC 0.00 0.00 - 0.01 K/uL CBC no Differential Result Value Ref Range WBC 14.2 (H) [...] 0.00 - 0.01 K/uL CBC no Differential Result Value Ref Range WBC 11.1 (H) [...] Absolute nRBC 0.00 0.00 - 0.01 K/uL Troponin I Result Value Ref Range Troponin I 0.33 (H) <0.06 ng/mL CBC no Differential Result Value Ref Range WBC 11.1 (H) [...] 0.00 - 0.01 K/uL CBC no Differential Result Value Ref Range WBC 10.4 4.0 [...] 0.00 - 0.01 K/uL CBC no Differential Result Value Ref Range WBC 8.9 [...] 0.00 - 0.01 K/uL CBC no Differential Result Value Ref Range WBC 7.0 4.0 [...] - 0.01 K/uL Extra Green Top Tube Result Value Ref Range Extra Green Top Tube Done CBC no Differential Result Value Ref Range WBC 6.6 4.0 [...] 0.00 - 0.01 K/uL CBC no Differential Result Value Ref Range WBC 10.6 4.0 [...] 0.00 - 0.01 K/uL CBC no Differential Result Value Ref Range WBC 6.8 4.0 [...] Absolute nRBC 0.00 0.00 - 0.01 K/uL *Note: Due to a large number of results and/or encounters for the requested time period, so me results have not been displayed. A complete set of results can be found in Results Review . Lab Results Component Value Date CREA 0.63 09/08/2019 Candido Link MD's notes were reviewed in clinic today. Return in about 3 months (around 01/11/2020).. This document was generated in part using voice recognition software. Frequent wrong word or sound-alike substitutions may have occurred due to the inherent limitations of the voice recognition software. Although I have attempted to edit the content, I have not thoroughly proofread this note, and seam hammerer errors are very likely to occur. CC: Candido Link MD documented in this encounter Plan of Treatment +--------+ + + + + | Date | Type | Specialty | Care Team | Description | +--------+ + + + + | 03/23/ | Office | Anticoagulation | García Harris, | | 2019 | Visit | | [facility] [address] | | | | [...] | | | | | [place] [address] | | | | | | [phone] | | | | | | | | +--------+ + + + + | 04/13/ | Office | Cardiology | Shawn Michael | | | 2020 | Visit | | MD Marcelino [address] | | | | | | [facility] | | | | | | [place] [address] | | | | | | [phone] | | | | | | | | +--------+ + + + + documented as of this encounter Visit Diagnoses + + | Diagnosis | + + | OAB (overactive bladder) - Primary Hypertonicity of bladder | + + | Recurrent UTI Urinary tract infection, site not specified | + + | Urge incontinence | [...]
--- OUTSIDE RECORDS SUMMARY | ~2020-03-14 | XMS | Encounter Summary ---
Demographics + + + | Address | [address] | | | [place] [address] | + + + | Home Phone [...] Providers + +------+ + | Care Research Center Director Name | Role | Phone | + +------+ + | Candido Link | PCP | | | MD | | | + +------+ + Reason for Visit + + + | Reason | Comments | + + + | ER Follow-up | | + + + Encounter Details +--------+ + + + + | Date | Type | Department | Care Team | Description | +--------+ + + + + | 03/06/ | Telephone | [facility] | Teddy Ruiz | ER Follow-up | | 2019 | | ORTHOPEDIC SURGERY | MD Jerry [address] | | | | | [address] [facility] | [facility] | | | | | [place] | [place] [address] | | | | | [address] | [phone] | | | | | [phone] | | | +--------+ + + + [...] | | 2019 | Visit | | FURNITURE FABRICATOR [address] | | | | | | [place] | | | | | | [address] | | | | | | | | +--------+ + + + + | 04/11/ | Appointment | Radiology | Shawn Michael | | 2019 | | | MD [address] | | | | | | [address] [place] | | | | | | [place] [address] | | | | | | [phone] | | | | | | | | +--------+ + + + + | 04/13/ | Office | Cardiology | Shawn Michael | | 2019 | Visit | | MD [address] | | | | | | [address] [place] | | | | | | [place] [address] | | | | | | [phone] | | | | | | | [...]
--- OUTSIDE RECORDS SUMMARY | ~2020-03-14 | XMS | Encounter Summary ---
Demographics + + + | Address | [address] | | | [place] [address] | + + + | Home Phone [...] | Author | [facility] | | | and [place] | + + + | Organization | [facility] | | | and [...] Team Providers + +------+ + | Care It Audit Manager Name | Role | Phone | [...] + | 12/28/ | Home Care | [facility] | Ginger Lynn RN | CASE COMMUNICATION | | 2019 | Visit | [facility] [address] | | | | | | [address] [place] | | | | | | [address] | | | | | | [phone] | | | +--------+ + + + [...] [address] | | | | | | [address] | | | | | | [place] [address] | | | | | | [phone] | | | | | | | | +--------+ + + + + | 04/13/ | Office | Cardiology | Shawn Michael | | 2019 | Visit | | MD Marcelino [address] | | | | | | [address] | | | | | | [place] [address] | | | | | | [phone] | | | | | | | [...]
--- OUTSIDE RECORDS SUMMARY | ~2020-03-14 | XMS | Encounter Summary ---
Demographics + + + | Address | [address] | | | [place] [address] | + + + | Home Phone [...] Team Providers + +------+ + | Care Bend Up Name | Role | Phone | + [...] [place] | | | | | | [address] | | | | | | [phone] | | | +--------+ + + + [...] [place] | | | | | | [address] | | | | | | | | +--------+ + + + + | 04/11/ | Appointment | Radiology | Shawn Michael | | | 2019 | | | MD Marcelino [address] | | | | | | [address] | | | | | | [place] [address] | | | | | | [phone] | | | | | | | | +--------+ + + + + | 04/13/ | Office | Cardiology | Shawn Michael | | | 2020 | Visit | | MD Marcelino [address] | | | | | | [address] | | | | | | [place] [address] | | | | | | [phone] | | | | | | | [...]
--- OUTSIDE RECORDS SUMMARY | ~2020-03-14 | XMS | Encounter Summary ---
Demographics + + + | Address | [address] | | | [place] [address] | + + + | Home Phone [...] Team Providers + +------+ + | Care Electro Tech Name | Role | Phone | [...] + + | 12/23/ | Telephone | [facility] | Nikolay, | DME | | 2019 | | MEDICINE [address] [place] [address] | MD Candido | | | | | [facility] | [address] [place] [address] | | | | | [place] [address] | [place] [address] | | | | | [phone] | [phone] | | | | | | | [...] | | 2019 | Visit | | CHEMICAL SUPERVISOR [address] | | | | | | [place] | | | | | | [address] | | | | | | | | +--------+ + + + + | 04/11/ | Appointment | Radiology | Shawn Michael | | | 2019 | | | MD [address] | | | | | | [address] [place] | | | | | | [place] [address] | | | | | | [phone] | | | | | | | | +--------+ + + + + | 04/13/ | Office | Cardiology | Shawn Michael | | | 2019 | Visit | | MD [address] | | | | | | [address] [place] | | | | | | [place] [address] | | | | | | [phone] | | | | | | | [...]
--- OUTSIDE RECORDS SUMMARY | ~2020-03-14 | XMS | Encounter Summary ---
Demographics + + + | Address | [address] | | | [place] [address] | + + + | Home Phone [...] +------+ + | Care Research And Evaluation Manager Name | Role | Phone | [...] + + | 08/01/ | Emergency | [facility] | Sammy Milan | Fall, initial | | 2018 | | [facility] | DO Francesco [address] | encounter (Primary | | | | CENTER [address] | [address] [facility] | Dx); Contusion of | | | | [place], [place] | [place] [address] | scalp, initial | | | | [address] | [phone] | encounter; Acute | | | | [phone] | | pain of right | | [...] cannot be sent through Care Everywhere.Scalp Contusion (Kyrgyz)Falls, Preventing, Are You At Risk of Falling? (Kyrgyz)KELSIE (Kyrgyz)documented i n this encounter Medications at Time [...] | | | | | [place] [address] | | | | | | [phone] | | | | | | | | +--------+ + + + + | 04/13/ | Office | Cardiology | Shawn Michael | | | 2020 | Visit | | MD Marcelino [address] | | | | | | [address] [place] | | | | | | [place] [address] | | | | | | [phone] | | | | | | | [...] J?MRN: | | | | | | [id number] | | | [id number] | | | riteri | | | [...] | | | endati | | | on:[place] | | | son | | | [...] | | | St. | | | [place] | | | y | | | [...] | | 6 0 | | | [place] | | | | | | [facility] | | | l | | | [facility] | | | al 1 0 | | | [facility] | [facility] | | | [place] | | | y | | | [...] | | | St. | | | [place] | | | y H. | | [...] | | | 2019 | | | [place] | | | | | | [...] | | | 2019 | | | [place] | | | | | | [...] | | | 2019 | | | [place] | | | | | | [...] | | | M.D. | | | Charge Entry Clerk | | | al | | | [...]
--- OUTSIDE RECORDS SUMMARY | ~2020-03-14 | XMS | Encounter Summary ---
Demographics + + + | Address | [address] | | | [place] [address] | + + + | Home Phone [...] Team Providers + +------+ + | Care Waste Reclaimer Name | Role | Phone | + +------+ + | Candido Link | PCP | | | MD | | | + +------+ + Reason for Visit + + + | Reason | Comments | + + + | Medical Problem | | + + + Encounter Details +--------+ + + + + | Date | Type | Department | Care Team | Description | +--------+ + + + + | 03/06/ | Telephone | [facility] | Nikolay, | Medical Problem | | 2019 | | MEDICINE [address] [place] [address] | MD Candido | | | | | [facility] | [address] [place] [address] | | | | | [place] [address] | [place] [address] | | | | | [phone] | [phone] | | | | | | | [...] | | 2019 | Visit | | SPECIAL ASSETS OFFICER [address] | | | | | | [place] | | | | | | [address] | | | | | | | | +--------+ + + + + | 04/11/ | Appointment | Radiology | Shawn Michael | | | 2019 | | | MD [address] | | | | | | [address] [place] | | | | | | [place] [address] | | | | | | [phone] | | | | | | | | +--------+ + + + + | 04/13/ | Office | Cardiology | Shawn Michael | | | 2019 | Visit | | MD [address] | | | | | | [address] [place] | | | | | | [place] [address] | | | | | | [phone] | | | | | | | [...]
--- OUTSIDE RECORDS SUMMARY | ~2020-03-14 | XMS | Encounter Summary ---
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
--- OUTSIDE RECORDS SUMMARY | ~2020-03-14 | XMS | Encounter Summary ---
Demographics + + + | Address | [address] | | | [place] [address] | + + + | Home Phone [...] Team Providers + +------+ + | Care Metal Mover Name | Role | Phone | + +------+ + | Candido Link | PCP | | | MD | | | + +------+ + Reason for Referral Evaluate & Treat +--------+ + + + + + | Status | Reason | Specialty | Diagnoses / | Referred By | Referred To | | | | | Procedures | Contact | Contact | +--------+ + + + + + | Closed | Specialty | Occupational | Diagnoses | | [facility] | | | Services | Therapy / | Chronic | Yana-Tajt | Bennett | | | Required | Rehabilitatio | right | i, | Therapy [address] | | | | n | shoulder | [place]Gillian | [address] | | | | | pain | , MD [address] | [place], | | | | | Procedures | [address] | [place] [address] | | | | | PT ? HH | [place], | Phone: | | | | | | [place] | [phone] | | | | | | [address] | Fax: | | | | | | Phone: | [phone] | | | | | | [phone] | | | | | | | Fax: | | | | | | | [phone] | | +--------+ + + + + + Encounter Details +--------+ + + + + | Date | Type | Department | Care Team | Description | +--------+ + + + + | 01/05/ | Orders Only | [facility] | Yana-Lani, | Chronic right | | 2019 | | MEDICINE [address] | MD Candido | shoulder pain | | | | [address] [place] | [address] [facility] | (Primary Dx) | | | | [place] [address] | [place] [address] | | | | | [phone] | [phone] | | | | | | | [...] [place] | | | | | | [address] | | | | | | | | +--------+ + + + + | 04/11/ | Appointment | Radiology | Shawn Michael | | | 2019 | | | MD [address] | | | | | | [address] [place] | | | | | | [place] [address] | | | | | | [phone] | | | | | | | | +--------+ + + + + | 04/13/ | Office | Cardiology | Shawn Michael | | | 2019 | Visit | | MD [address] | | | | | | [address] [place] | | | | | | [place] [address] | | | | | | [phone] | | | | | | | | +--------+ + + + + + + +--------+ + + | Name | Type | Priori | Associated Diagnoses | Order Schedule | | | | ty | | | + + +--------+ + + | * [facility] | Outpatient | Routin | Chronic right | Expected: | | Bennett | Referral | e | shoulder pain | 01/06/2020, Expires: | | Occupational Therapy | | | | 01/05/2021 | | - AMB Referral | | | | | + + +--------+ + + documented as of this encounter Visit Diagnoses + + | Diagnosis | + + | Chronic right shoulder pain - Primary Pain in joint, shoulder region | + + documented in this encounter Additional Health Concerns + + + + | Infection | Noted Time | Resolved Time | + + + + | Methicillin-resistant Staphylococcus aureus | 06/08/2019 9:39 AM | | | | PDT | | + + + + documented as of this encounter"
--- OUTSIDE RECORDS SUMMARY | ~2020-03-14 | XMS | Encounter Summary ---
Demographics + + + | Address | [address] | | | [place] [address] | + + + | Home Phone [...] Providers + +------+ + | Care Top Cager Name | Role | Phone | + [...] [place] | | | | | | [address] | | | | | | [phone] | | | +--------+ + + + [...] | | 2019 | Visit | | CHILD WELFARE SPECIALIST [address] | | | | | | [place] | | | | | | [address] | | | | | | | | +--------+ + + + + | 04/11/ | Appointment | Radiology | Shawn Michael | | | 2019 | | | MD [address] | | | | | | [address] [place] | | | | | | [place] [address] | | | | | | [phone] | | | | | | | | +--------+ + + + + | 04/13/ | Office | Cardiology | Shawn Michael | | | 2019 | Visit | | MD Marcelino [address] | | | | | | [address] [place] | | | | | | [place] [address] | | | | | | [phone] | | | | | | | [...]
--- OUTSIDE RECORDS SUMMARY | ~2020-03-14 | XMS | Encounter Summary ---
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 | + + + | Other | TAVR | + + + Evaluate & Treat (Routine) + + + + + + + | Status | Reason | Specialty | Diagnoses / | Referred By | Referred To | | | | | Procedures | Contact | Contact | + + + + + + + | Authorized | Specialty | Cardiology | Diagnoses | | [facility] | | | Services | | S/p TAVR | Yana-Tajt | Cardiology | | | Required | | (transcathet | i, | [address] | | | | | er aortic | Candido | [place], | | | | | valve | , [address] | [place] | | | | | replacement) | [place] | [address] | | | | | , | [place], | Phone: | | | | | bioprostheti | [place] | [phone] | | | | | c Acute on | [address] | Fax: | | | | | chronic | Phone: | [phone] | | | | | systolic | [phone] | | | | | | heart | Fax: | | | | | | failure | [phone] | | | | | | ([facility]) | | | | | | | Procedures | | | | | | | ACCOUNTS COLLECTOR | | | + + + + + + + Encounter Details +--------+---------+ + + + | Date | Type | Department | Care Team | Description | +--------+---------+ + + + | 10/20/ | Office | [facility] | Shawn Mcihael | Chest pain, | | 2019 | Visit | CARDIOLOGY [address] | MD Marcelino [address] | unspecified type | | | | [place], | [address] [place] | (Primary Dx); Acute | | | | [place] [address] | [place] [address] | on chronic heart | | | | [phone] | [phone] | failure, unspecified | | | | | | heart failure type | | | | | | (HCC) | +--------+---------+ + + + Social History [...] + | Blood Pressure | 112/60 | 10/20/2019 10:50 AM | | | | | PST | | + + + + + | Pulse | 90 | 10/20/2019 10:50 AM | | | | | PST | | + + + + + | Temperature | - | - | | + + + + + | Respiratory Rate | 14 | 10/20/2019 10:50 AM | | | | | PST | | + + + + + | Oxygen Saturation | - | - | | + + + + + | Inhaled Oxygen | - | - | | | Concentration | | | | + + + + + | Weight | 53.6 kg (118 lb 2.7 | 10/20/2019 10:50 AM | | | | oz) | PST | | + + + + + | Height | 165.1 cm (5' 5") | 10/20/2019 10:50 AM | | | | | PST | | + + + + + | Body Mass Index | 19.66 | 10/20/2019 10:50 AM | | | | | PST | | + + + + + documented in this encounter Progress Notes Shawn Michael MD - 10/20/2019 10:30 AM PSTFormatting of this note might be differe nt from the original. PATIENT NAME: Ángela Crowley : 1930: AGE: 89 y.o. REFERRED BY: Candido Ruiz PRIMARY CARE: Candido Link MD CARDIOLOGY OFFICE VISIT Date of Service: 10/20/19 HISTORY OF PRESENT ILLNESS: Ángela Crowley is a 89 y.o. female with a history of severe aortic stenosis status pos t TAVR, mitral valve disease paroxysmal atrial fibrillation and recent hospitalizations for diverticulitis and severe anemia as well as sacral decubitus ulcer and COPD. She is being s een today for further consultation. She presents with her son Wayne. She is referred by Candido Ruiz for further evaluation given her history of iliana ve disease. She recently moved here locally and previously received her cardiology care in [place], [place]. In February 2019 she underwent transaortic valve replacement with a 23 mm Fishman Clarke S3 valve. She had evidence of normal coronaries by angiography preoperativel y. She is also known to have mitral valve disease. She is recovering from her recent hospi talizations and has been ambulating with a walker. She denies any exertional chest pain, in stability or falls. She has no known history of myocardial infarction or heart failure. She denies problems such as orthopnea, PND, or lower extremity edema, or any palpitations, lightheadedness, or syncope. MEDICAL, SURGICAL, AND PERSONAL HISTORY Past Medical History: Diagnosis Date Aortic stenosis COPD (chronic obstructive pulmonary disease) (HCC) Coronary artery disease Kidney stone Rheumatic fever Tuberculosis Venereal disease Past Surgical History: Procedure Laterality Date 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 CHOLECYSTECTOMY COLONOSCOPY N/A 06/11/2019 Procedure: COLONOSCOPY-Possible Flex Sig; Surgeon: Edwin Stoddard MD; Location: [facility] HYSTERECTOMY NIRMAL AND BSO TONSILLECTOMY AND ADENOIDECTOMY UPPER GASTROINTESTINAL ENDOSCOPY N/A 06/07/2019 Procedure: EGD; Surgeon: Edwin Stoddard MD; Location: [facility] UPPER GASTROINTESTINAL ENDOSCOPY N/A 08/20/2019 Procedure: EGD; Surgeon: John Grimes MD; Location: [facility] Family History Problem Relation Age of Onset Hypertension Mother Stroke Mother Family Status Relation Name Status Mother Social History Socioeconomic History Marital status: Spouse name: Not on file Number of children: Not on file Years of education: Not on file Highest education level: Not on file Tobacco Use Smoking status: Former Smoker Types: Cigarettes Start date: 1944 Last attempt to quit: 1968 Years since quittin.0 Smokeless tobacco: Never Used Substance and Sexual Activity Alcohol use: Never Frequency: Never CURRENT MEDICATIONS Current Outpatient Medications Medication Sig [...] Unknown Pregabalin Unknown Lyrica Sulfa Antibiotics Unknown Review of Systems Constitutional: Positive for malaise/fatigue. Eyes: Positive for blurred vision. Respiratory: Positive for shortness of breath. Gastrointestinal: Positive for abdominal pain, blood in stool, nausea and vomiting. Musculoskeletal: Positive for back pain, falls and joint pain. Endo/Heme/Allergies: Bruises/bleeds easily. I have reviewed the Review of Systems form dated today and scanned into the media tab. Cardiovascular diagnostic testing reviewed by me with the patient today: Echocardiogram August 2019 shows normal left ventricular chamber diameter with mild eduardo ntric hypertrophy. Normal left ventricular systolic function without regional wall motion ab normality. Status post TAVR with borderline prosthetic valvular stenosis. Mild mitral valve regurgitation. Bruce Altman MD Echocardiogram August 2019 shows moderate biatrial dilatation. Normal left ventricular s ize with a mild concentric left ventricular hypertrophy. Left ventricular systolic function is preserved. LVEF is 60 to 65%. Grade 1 left ventricular diastolic dysfunction. Evidence of a TAVR with slight increased velocity across aortic valve of 2.7 m/s, peak gradient of 30 mmHg, mean gradient of 15 mmHg. There is a mild to moderate perivalvular aortic valve insuf ficiency. Moderately thickened and calcified mitral valve suggesting myxomatous change. Ther e is a mild calcific mitral valve stenosis. There is also a mild to central aortic valve ins ufficiency. Mild to central tricuspid valve regurgitation. Moderate pulmonary hypertension w ith a peak systolic pressure of 60 to 65 mmHg. Dilated IVC with a normal respiratory collaps e. When compared to echocardiography on 06/01/2019, perivalvular aortic valve insufficiency s eems to be slightly worsened. Pulmonary pretension is also worsened. Clint Jovel MD Echocardiogram May 2019 shows mild biatrial dilatation. Normal left ventricular size wit h a mild concentric left ventricular hypertrophy. Left ventricular systolic function is hype rdynamic. LVEF is 75-80 %. Grade 1 left ventricular diastolic dysfunction. Evidence of a TA VR with significant increased velocity across aortic valve of 3.1 m/s, peak gradient of 39 m mHg, mean gradient of 15 mmHg. There is a trace perivalvular aortic valve insufficiency. Mo derately thickened and calcified mitral valve suggesting myxomatous change. There is a mild mitral valve regurgitation. There is also a mild calcific mitral valve stenosis. Moderate m itral annular calcification. Mild to moderate tricuspid valve regurgitation. Mild pulmonary hypertension with a peak systolic pressure of 45 to 50 mmHg. Normal IVC with a normal respir atory collapse. Clint Jovel MD Echocardiogram May 2019: This is a limited echocardiogram to assess TAVR with normalizin g hemoglobin of 10. Normal left ventricular size, wall thickness with hyperdynamic left vent ricular systolic function. LVEF is 75 to 80%. Evidence of #23 Fishman sapient 3 TAVR. Ther e is still significant increased velocity across aortic valve of 3 m/s, peak gradient of 34 mmHg, mean gradient 14 mmHg. When compared echocardiography on (hemoglobin of 7), n o significant changes. Clint Jovel MD TAVR February 2019 shows severe aortic stenosis. TAVR with 23 mm Edward Saplen S3 valve. Moderat e perivalvular leak, requiring a 2nd valve placed 1 cell lower. Echocardiogram February 2019 shows normal left ventricular size, thickness, systolic function, a nd wall motion with LVEF 65-70%. A transcatheter aortic valve is present. The prosthetic aor tic valve appears to be functioning normally. No pathologic regurgitation is present. Left heart catheterization November 2015 shows no significant vessel coronary artery diseas e. A small branch of PLB is about 1 mm in diameter and has 90% proimal stenosis. 20% RCA maria m nosis. Normal central blood pressure. Left ventricular systolic function of 60%. No complica tions. Michi Phipps MD OBJECTIVE: PHYSICAL EXAM BP 112/60 | Pulse 90 | Resp 14 | Ht 1.651 m (5' 5") | Wt 53.6 kg (118 lb 2.7 oz) | BMI 19.66 kg/m Physical Exam Constitutional: She is oriented to person, place, and time. She appears well-developed and well-nourished. HENT: Head: Normocephalic. Eyes: No scleral icterus. Neck: Normal carotid pulses and no JVD present. Carotid bruit is not present. Cardiovascular: Normal rate, regular rhythm, S1 normal, S2 normal, intact distal pulses and normal pulses. PMI is not displaced. Exam reveals no gallop and no midsystolic click. Murmur heard. Harsh midsystolic murmur is present with a grade of 1/6 at the upper right sternal border radiating to the neck. Pulses: Carotid pulses are 2+ on the right side and 2+ on the left side. Radial pulses are 2+ on the right side and 2+ on the left side. Dorsalis pedis pulses are 2+ on the right side and 2+ on the left side. Pulmonary/Chest: Effort normal and breath sounds normal. No accessory muscle usage. No resp iratory distress. She has no wheezes. She has no rhonchi. She has no rales. Abdominal: Soft. Normal aorta and bowel sounds are normal. She exhibits no abdominal bruit. There is no hepatosplenomegaly. There is no tenderness. Musculoskeletal: General: No edema. Neurological: She is alert and oriented to person, place, and time. Gait normal. Skin: Skin is warm and dry. No cyanosis. Nails show no clubbing. Psychiatric: She has a normal mood and affect. Her mood appears not anxious. She does not e xhibit a depressed mood. Vitals reviewed. ECG: Reviewed by me today notable for normal sinus rhythm, heart rate 90, normal ECG. LAB RESULTS: LIPID No results found for: CHOL, TRIG, HDL, LDL, CHOLHDL, LDLEX, HDLEX, TRIGEX, CHOLEX CHEMISTRY Lab Results Component Value Date GLU 103 10/14/2019 NA 143 10/14/2019 K 3.6 10/14/2019 CL 106 10/14/2019 CO2 30 10/14/2019 CALCIUM 8.7 10/14/2019 ALKPHOS 115 10/14/2019 AST 18 10/14/2019 ALT 11 10/14/2019 BILITOT 0.7 10/14/2019 CREA 0.82 10/14/2019 BUN 22 10/14/2019 HEMATOLOGY Lab Results Component Value Date WBC 12.7 (H) 10/14/2019 HGB 9.2 (L) 10/14/2019 HCT 29.4 (L) 10/14/2019 PLT 242 10/14/2019 I reviewed records from [facility] for hospitalization,including H& P, Discharge Summary and lab reports on 09/08/2019, as well as 08/26/2019, as well as cardiol ogy office visit note 04/30/2019 and PCP note 07/15/2019. Echocardiogram August 2019 results reviewed by me with the patient today notable for norm al LV size with mild concentric LVH and normal systolic function with normal regional wall m otion and LVEF 65%, bioprosthetic aortic valve with peak velocity 2.7 m/s and mean/peak grad ients of 36/30 mmHg, thickened mitral valve with moderate annular calcification, mild MR and no stenosis. Left heart catheterization and coronary angiography January 2019 results reviewed by me with the patient today notable for no significant obstructive CAD, moderate to severe aortic sten osis, normal filling pressures. Transaortic valve replacement February 2019 with 23 mm S3 Fishman Clarke valve. ASSESSMENT: 1. Severe aortic stenosis status post TAVR February 2019 with 23 mm S3 Fishman Clarke valve - p ateboni underwent 5 different echocardiograms in the latter half of 2019 alone, all showing a dequate bioprosthetic valve function. On examination this is confirmed and there are no cli nical concerning symptoms. I have urged her to improve her activity level and recover from her recent hospitalizations. She will undergo repeat echocardiography prior to our next vis it in 2020. 2. Paroxysmal atrial fibrillation - this was mentioned as a diagnosis but does not appear to have been clinically significant in the recent past. Patient has not been a candidate fo r anticoagulation therapy given her advanced age, frail status, fall predisposition, and rec ent significant GI bleed and secondary anemia. For now we will continue with aspirin therap y. Of note, patient is noted to be on both metoprolol as well as carvedilol. I have asked the family to further confirm this. Ideally, she should only be on carvedilol and if metoprolo l needs to be discontinued, carvedilol's dose may need to be increased. I have urged him to maintain a log of her ambulatory vitals for future review. 3. Coronary artery disease - no significant CAD was noted on her recent invasive work-up i n 2019. We will remain on aspirin and statin therapy for now. PLAN: 1. Repeat echocardiogram prior to next visit. 2. Fall prevention reemphasized. 3. Improve activity level and rehabilitation following recent hospitalizations. 4. Confirm lack of concomitant carvedilol and metoprolol use. Otherwise continue current medications for now. 5. Follow-up visit within 6 to 9 months, or sooner if clinically indicated. 6. Maintain ambulatory blood pressure and heart rate log for future review. I spent 60 minutes face to face with the patient, with over 50% spent in counseling and/or coordination of care regarding history of valve disease, arrhythmia, and suggestion for furt her work-up and management. Portions of this report were transcribed using voice recognition software. Every effort wa s made to ensure accuracy; however, inadvertent computerized echocardiography radiology technologist errors may be pre sent. Electronically signed by: Merrick Michael MD PhD FACC 10/20/2019 documented in this encounter Plan of Treatment +--------+ + + + + | Date | Type | Specialty | Care Team | Description | +--------+ + + + + | 03/23/ | Office | Anticoagulation | García Harris, | | | 2019 | Visit | | SCRAPE GATHERER [address] | | | | | | [place] | | | | | | [address] | | | | | | | | +--------+ + + + + | 04/11/ | Appointment | Radiology | Shawn Michael | | | 2019 | | | MD [address] | | | | | | [address] [place] | | | | | | [place] [address] | | | | | | [phone] | | | | | | | | +--------+ + + + + | 04/13/ | Office | Cardiology | Shawn Michael | | | 2019 | Visit | | MD [address] | | | | | | [address] [place] | | | | | | [place] [address] | | | | | | [phone] | | | | | | | | +--------+ + + + + documented as of this encounter Procedures + +--------+ + + + | Procedure Name | Priori | Date/Time | Associated Diagnosis | Comments | | | ty | | | | + +--------+ + + + | ECG 12 LEAD | Routin | 10/20/2019 | Acute on chronic | Results for this | | | e | 10:46 AM | heart failure, | procedure are in the | | | | PST | unspecified heart | results section. | | | | | failure type (HCC) | | | | | | Chest pain, | | | | | | unspecified type | | + +--------+ + + + documented in this encounter Results ECG 12 lead (10/20/2019 10:46 AM PST) + + + + + [...] + + + + | QRS | 76 | ms | [facility] | | | DURATION | | | | | + + + + + + | Q-T | 334 | ms | [facility] | | | INTERVAL | | | | | + + + + + + | Q-T | 408 | ms | [facility] | | | INTERVAL | | | | | | (CORRECTED) | | | | | + + + + + + | P WAVE AXIS | 65 | degrees | [facility] | | + + + + + + | QRS AXIS | 74 | degrees | [facility] | | + + + + + + | T AXIS | 83 | degrees | [facility] | | + + + + + + | INTERPRETAT | Normal sinus | | [facility] | | | ION TEXT | rhythmNormal ECGWhen | | | | | | compared with ECG of | | | | | | 02-SEP-2019 02:40,No | | | | | | significant change was | | | | | | foundConfirmed by CHAYITO | | | | | | MARCELINO JOSEPH ([id number]) on | | | | | | 10/21/2019 5:28:46 PM | | | | + + + [...] type - Primary | + + | Acute on chronic heart failure, unspecified heart failure type (HCC) | + + documented in this encounter Additional Health Concerns + + + + | Infection | Noted Time | Resolved Time | + + + + | Methicillin-resistant Staphylococcus aureus | 06/08/2019 9:39 AM | | | | PDT | | + + + + documented as of this encounter
--- OUTSIDE RECORDS SUMMARY | ~2020-03-14 | XMS | Encounter Summary ---
Demographics + + + | Address | [address] | | | [place] [address] | + + + | Home Phone [...] Team Providers + +------+ + | Care Farm Machine Operator Name | Role | Phone [...] | | | | [place] | | | | | | [address] | | | | | | [phone] | | | +--------+ + + + [...] | | 2019 | Visit | | EVALUATION SPECIALIST [address] | | | | | | [place] | | | | | | [address] | | | | | | | | +--------+ + + + + | 04/11/ | Appointment | Radiology | Shawn Michael | | | 2019 | | | MD [address] | | | | | | [address] [place] | | | | | | [place] [address] | | | | | | [phone] | | | | | | | | +--------+ + + + + | 04/13/ | Office | Cardiology | Shawn Michael | | | 2019 | Visit | | MD [address] | | | | | | [address] [place] | | | | | | [place] [address] | | | | | | [phone] | | | | | | | [...]
--- OUTSIDE RECORDS SUMMARY | ~2020-03-14 | XMS | Encounter Summary ---
Demographics + + + | Address | [address] | | | [place] [address] | + + + | Home Phone [...] | + + +---------+ + | Layla Arugeta | ECON | Unknown | | + + +---------+ + Care Team Providers + +------+ + | Care Industrial Electrician Name | Role | Phone | [...] | 10/07/ | Home Care | [facility] [place] | Timothy, | HH AIDE REPEAT VISIT | | 2019 | Visit | [place] [address] | Tania Garcia CNA | | | | | [place] | | | | | | [address] | | | | | | [phone] | | | +--------+ + + + [...] | | | | | [place] [address] | | | | | | [phone] | | | | | | | | +--------+ + + + + | 04/13/ | Office | Cardiology | Shawn Michael | | | 2019 | Visit | | MD Marcelino [address] | | | | | | [place] | | | | | | [place] [address] | | | | | | [phone] | | | | | | | [...] Plan + + | Visit Type - DESIGNER ARCHITECT - REPEAT VISIT | | Discipline - Home Health Aide | + + + + +--------+--------+ + + | Problem | Description | Start | Status | Goals | Interventio | | | | Date | | | ns | + + +--------+--------+ + + | HH Aide Need | DESIGNER ARCHITECT services | | | 1 goal | 3 goal | | Disciplines: | needed | | Active | linked to | interventio | | Alf, | | 019 | | scheduled/d | [...]
--- OUTSIDE RECORDS SUMMARY | ~2020-03-14 | XMS | Encounter Summary ---
Demographics + + + | Address | [address] | | | [place] [address] | + + + | Home Phone [...] Providers + +------+ + | Care City Director Name | Role | Phone | [...] + | 02/26/ | Home Care | [facility] [place] | Layla Pablo | CASE COMMUNICATION | | 2019 | Visit | [place] [address] | | | | | | [address] [place] | | | | | | [address] | | | | | | [phone] | | | +--------+ + + + [...] [place] | | | | | | [id number] | | | | | | | | +--------+ + + + + | 04/11/ | Appointment | Radiology | Shawn Michael | | | 2019 | | | MD Marcelino [address] | | | | | | [address] | | | | | | [place] [address] | | | | | | [phone] | | | | | | | | +--------+ + + + + | 04/13/ | Office | Cardiology | Shawn Michael | | | 2020 | Visit | | MD Marcelino [address] | | | | | | [address] | | | | | | [place] [address] | | | | | | [phone] | | | | | | | [...]
--- OUTSIDE RECORDS SUMMARY | ~2020-03-14 | XMS | Encounter Summary ---
Demographics + + + | Address | [address] | | | [place] [address] | + + + | Home Phone [...] Team Providers + +------+ + | Care Commercial Litigation Attorney Name | Role | Phone | + [...] [place] | | | | | | [address] | | | | | | [phone] | | | +--------+ + + + [...] [place] | | | | | | [id number] | | | | | | | | +--------+ + + + + | 04/11/ | Appointment | Radiology | Shawn Michael | | 2019 | | | MD Marcelino [address] | | | | | | [address] | | | | | | [place] [address] | | | | | | [phone] | | | | | | | | +--------+ + + + + | 04/13/ | Office | Cardiology | Maxood, Shawn | | | 2019 | Visit | | MD Marcelino [address] | | | | | | [address] [place] | | | | | | [place] [address] | | | | | | [phone] | | | | | | | [...] TRANSFER W/OUT D/C | | Discipline - Mcc | + + + + +--------+--------+ + [...] 2018 | | | interventio | | Mcc | infusion. | | | | n [...] 2018 | | | interventio | | M[facility] [...] Active | linked to | | | Mcc | | 2018 | | scheduled/d | [...] | linked to | interventio | | Mcc | | 2018 | | scheduled/d | [...] | | scheduled/d | ns | | M[facility] | | | | ocumented | scheduled/d | | | | | | interventio | ocumented | | | | | | n | in this | | | | | | | visit | + + +--------+--------+ + + | Health Promotion | | | | - | 1 problem | | Disciplines: | | 08/28/ | Active | | | | Mcc, | | 2018 | | | interventio | | Physical Therapy, | | | | | n | | Occupational | | | | | scheduled/d | | Therapy, Case | | | | | ocumented | | Derrick Boat Operator, Physical | | | | | in this | | Legal Entity Controller | | | | | visit | + + +--------+--------+ + + | Heart Failure/CHF | Heart Failure/CHF | | | - | 1 problem | | Disciplines: | | 08/28/ | Active | | | | Mcc | | 2019 | | | interventio [...] | linked to | interventio | | Mcc | CHRONIC OXYGEN USE | 2019 | [...] Active | linked to | | | Mcc | ulcer located on | 2019 | [...] | | | | as presented in [facility] | | | | | [...] | | | | | | (possible OFFAL SEPARATOR | | | | | | referral). [...] | | | | | | IS [place] [employer] | | | | | [...] | | | | | indicated per [facility] | | | | | | Guidelines: [...] | | | | | you? Provided [facility] | | | | | | Handout. [...]
--- OUTSIDE RECORDS SUMMARY | ~2020-03-14 | XMS | Encounter Summary ---
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
--- OUTSIDE RECORDS SUMMARY | ~2020-03-14 | XMS | Encounter Summary ---
Demographics + + + | Address | [address] | | | [place] [address] | + + + | Home Phone [...] Providers + +------+ + | Care Director Field Services Name | Role | Phone | + [...] + + | 08/16/ | Telephone | [facility] | Nikolay, | Medication Question | | 2018 | | MEDICINE [address] [place] [address] | MD Candido | | | | | [facility] | [address] [place] [address] | | | | | [place] [address] | [place] [address] | | | | | [phone] | [phone] | | | | | | | [...] | | 2019 | Visit | | ENERGY RATER [address] | | | | | | [place] | | | | | | [address] | | | | | | | | +--------+ + + + + | 04/11/ | Appointment | Radiology | Shawn Michael | | | 2019 | | | MD [address] | | | | | | [address] [place] | | | | | | [place] [address] | | | | | | [phone] | | | | | | | | +--------+ + + + + | 04/13/ | Office | Cardiology | Shawn Michael | | | 2019 | Visit | | MD [address] | | | | | | [address] [place] | | | | | | [place] [address] | | | | | | [phone] | | | | | | | [...]
--- OUTSIDE RECORDS SUMMARY | ~2020-03-14 | XMS | Encounter Summary ---
Demographics + + + | Address | [address] | | | [place] [address] | + + + | Home Phone [...] Team Providers + +------+ + | Care Stonemason Apprentice Name | Role | Phone | [...] [place] | | | | | | [address] | | | | | | [phone] | | | +--------+ + + + [...] | | | | | [place] [address] | | | | | | [phone] | | | | | | | | +--------+ + + + + | 04/13/ | Office | Cardiology | Shawn Michael | | | 2019 | Visit | | MD Marcelino [address] | | | | | | [address] | | | | | | [place] [address] | | | | | | [phone] | | | | | | | [...] Plan + + | Visit Type - VP TALENT MANAGEMENT - REPEAT VISIT | | Discipline - Home Health Aide | + + + + +--------+--------+ + + | Problem | Description | Start | Status | Goals | Interventio | | | | Date | | | ns | + + +--------+--------+ + + | HH Aide Need | VP TALENT MANAGEMENT services | | | 1 goal | [...]
--- OUTSIDE RECORDS SUMMARY | ~2020-03-14 | XMS | Encounter Summary ---
Demographics + + + | Address | [address] | | | [place] [address] | + + + | Home Phone [...] Providers + +------+ + | Care Supervisor Sewing Room Name | Role | Phone | [...] Specialty | Home Health | Diagnoses | Travis, | Prov Hh | | | Services | Services | Coronary | MD Sharon | [place] | | | Required | | artery | [address] | [address] | | | | | disease | [place] | [place] | | | | | involving | [place] | [place] | | | | | resighini | [address] | [address] | | | | | coronary | Phone: | Phone: | | | | | artery of | [phone] | [phone] | | | | | resighini heart | Fax: | Fax: | | | | | without | [phone] | [phone] | | | | | angina | | | | | | | pectoris | | | | | | | S/p [...] | | | | | | c | | | | | | | 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 | | | | | | | (HCC) Uses | | | | | | | walker | | | | | | | Impaired | | | | | | | mobility | | | | | | | Procedures | | | | | | | 08/27/19 SN | | | | | | | PT OT | | | +--------+ + + + [...] + + + + | 08/19/ | Hospital | [facility] | Edin Gentile, | Chest pain in adult | | 2019 - | Encounter | [facility] | [address] | (Primary Dx); Anemia | | | | [address] [place] | [place] | of chronic disease; | | 08/26/ | | [place] [address] | [address] [address] | Acute GI bleeding; | | 2019 | | [phone] | MD Pati [address] | Melena; | | | | | [address] [place] | 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 P ateboni was placed on bowel rest, IV antibiotics [...] Please check in at 10:15. Contact information: [place] [address] Condition: stable Diet: general Less than 30 minutes were spent on discharge and coordination of post-hospital care. Electronically signed by: Sharon Robles MD, 08/26/2019 9:[address] [facility] documented in this enco unter Discharge Instructions [...] ) to help with your chronic pain. Sharno Robles MD documented in this encounter Medications [...] | | | | type (HCC) | return to 10mg | | | [...] Robles MD - 08/25/2019 11:42 AM PST [place], [place] HOSPITALIST PROGRESS NOTE Patient: Ángela Crowley : 1930: Age: 89 y.o. 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 Started on PPI drip here. EGD ([facility]) showed no significan t lesions or active [...] SCD Disposition: anticipate DC home tomorrow with HH Subjective CC: no complaints Patient states she [...] IVPB 125 mg Intrave nous Daily Sharon Rboles MD 110 mL/hr at 08/24/19 2351 125 [...] 2.5L/min Sharon Robles MD 08/25/2019 11:42 AM [facility] Sharon Hector MD - 4:[address] [facility] [place] HOSPITALIST PROGRESS NOTE Patient: Ángela Crowley : 1930: Age: 89 y.o. 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 Started on PPI drip here. EGD ([facility]) showed no significan t lesions or active [...] Clostridioides difficle NAAT reflex to Tox Ag [[id number]] Collected: 08/22/19105 Order Status: Completed Lab Status: Final result Updated: 08/22/19353 Specimen: Stool Narrative: The following orders were created for panel order Clostridioides difficle NAAT reflex to T ox Ag. Procedure Abnormality Status --------- ------ Clostridioides difficile...[[id number]] Final result Please view results for these tests on the individual orders. Clostridioides difficile NAAT Reflex [[id number]] Collected: 08/22/19105 Order Status: Completed Lab Status: [...] 2.5L/min Sharon Robles MD 08/24/2019 4:58 PM [facility] HLeSam schmidt MD - 08/23/2019 8:06 PM PST [facility] Hospitalist Progress Note Ángela [...] reproducible with palpation, did not have an SD on admission -Held aspirin for black tarry [...] hours) at 08/23/20192005 Last data filed at 08/23/2019 1949 Gross per 24 hour Intake 562 ml [...] above. Sam Valladares MD 08/23/2019 8:06 PM [facility] am Valladares MD - 08/22/2019 7:45 AM PST [facility] Hospitalist Progress Note Ángela [...] General: Alert, no distress, thin, frail, appropriate, [id number] Cardiovascular: Regular rate and rhythm Respiratory: Diminished [...] pH, Urine 6.0 5.0 - 8.0 Specific [place] 1.029 1.001 - 1.030 Protein, Urine Negative [...] above. Sam Valladares MD 08/22/2019 7:45 AM [facility] am Valladares MD - 08/21/2019 2:34 PM PST [facility] Hospitalist Progress Note Ángela [...] She would like to return home to [place] when she is discharged Prophylaxis: SCD SUBJECTIVE: [...] pH, Urine 6.0 5.0 - 8.0 Specific [place] 1.029 1.001 - 1.030 Protein, Urine Negative [...] the origins of several visceral aortic branches. Delfian id osseous fusion and changes of posterior [...] above. Sam Valladares MD 08/21/2019 2:46 PM [facility] eroxana, Sam Galarza MD - 08/20/2019 4:03 PM [address] [facility] Hospitalist Progress Note Ángela [...] the area Disposition : Home with son to [place] Prophylaxis: SCD SUBJECTIVE: Complains of some pain [...] Crossmatch Result Value Ref Range Product Code H0153I17 UNIT # [id number] UNIT ABO A UNIT RH POS CROSSMATCH INTERP Compatible Unit Status Issued Blood Product Miguel OCHOA Blood Product Expiration Date and Time [id number] Product Blood Type Barcode 6200 Troponin I [...] inferolateral leads Confirmed by UMESH JOSEPH, LEONIDAS ([id number]) on 08/20/2019 6:47:02 AM Hemoglobin and Hematocrit [...] LVOT Mean Velocity 71.81 cm/s MV Deceleration [place] 489.87 cm/s2 MV Deceleration Time 274.63 msec MV E/A Ratio 0.8 MV Mean Velocity 106.99 cm/s MV Peak A-Wave 168.88 cm/s MV Peak E-Wave 134.53 cm/s AV Deceleration [place] 319.97 cm/s2 AV Deceleration Time 1,088.5 msec [...] above. Sam Valladares MD 08/20/2019 4:04 PM [facility] documented in this encounter Plan of Treatment +--------+ + + + + | Date | Type | Specialty | Care Team | Description | +--------+ + + + + | 03/23/ | Office | Anticoagulation | García Harris, | | 2019 | Visit | | [address] | | | | | | [place] | | | | | | [phone] | | | | | | | | +--------+ + + + + | 04/11/ | Appointment | Radiology | Shawn Michael | | 2019 | | | MD Myon[address] | | | | | | [address] [place] | | | | | | [place] [address] | | | | | | [phone] | | | | | | | | +--------+ + + + + | 04/13/ | Office | Cardiology | Shawn Michael | | | 2019 | Visit | | MD Mynor [address] | | | | | | [address] [place] | | | | | | [place] [address] | | | | | | [phone] | | | | | | | [...] involving | | | | | | resighini coronary | | | | | | artery of resighini | | | | | | heart without angina | | | | | | pectoris S/p TAVR | | | | | | (transcatheter | | | | | | aortic valve | | | | | | replacement), | | | | | | bioprosthetic | | | | | | Panlobular emphysema | | | | | | ([facility]) Carly ernst | | | | | | Impaired [...] + +--------+ + + + | *TERMED* MA UPPER GI | Routin | 08/20/2019 | [...] | | | | | | [facility] | | | | | | MEDICAL | | | | | | CENTER - | | | | | | LABORATORY | | + + + + + + | Anion Gap | 5 | 3 - 16 mmol/L | [facility] | | | | | | [facility] | | | | | | [facility] | | | | | | CENTER - | | | | | | LABORATORY | | + + + + + + | Glucose | 75 | 60 - 106 mg/dL | [facility] | | | | | | [facility] | | | | | | MEDICAL | | | | | | CENTER - | | | | | | LABORATORY | | + + + + + + | BUN | 18 | 9 - 23 mg/dL | [facility] | | | | | | [facility] | | | | | | MEDICAL [...] | | FILTRATION | mL/min/1.73m2 | [facility] | | | ROMANIAN | RATE,ESTIMATED | | MEDICAL | | | | mL/min/1.98u2Fcdu than | | CENTER - | | [...] + | [facility] | [address] | [place], [place] | [phone] | | [facility] | | [address] | | | - LABORATORY | | [...] | | | | | | [facility] | | | | | | MEDICAL [...] | | | | g/dL | [facility] | | | | | | MEDICAL | | | | | | CENTER - | | | | | | LABORATORY | | + + + + + + | Hematocrit | 32.1 (L) | 34.0 - 47.0 % | [facility] | | | | | | [facility] | | | | | | MEDICAL | | | | | | CENTER - | | | | | | LABORATORY | | + + + + + + | MCV | 93.3 | 83.0 - 101.0 fL | [facility] | | | | | | [facility] | | | | | | MEDICAL [...] | | | | | | [facility] | | | | | | MEDICAL | | | | | | CENTER - | | | | | | LABORATORY | | + + + + + + | % Immature | 0.9 (H)Comment: | 0.0 - 0.4 % | [facility] | | | Granulocyte | Preliminary studies have | | [facility] | | | s | indicated the [...] | Neutrophils | | K/uL | [facility] | | | | | | MEDICAL | | | | | | CENTER - | | | | | | LABORATORY | | + + + + + + | Absolute | 1.20 | 0.60 - 3.20 | [facility] | | | Lymphocytes | | K/uL | [facility] | | | | | | MEDICAL [...] | Immature | | K/uL | [facility] | | | Granulocyte | | | MEDICAL | | | s | | | CENTER - | | | | | | LABORATORY | | + + + + + + | % nRBC | 0 | 0 - 2 per 100 | [facility] | | | | | WBCs | [facility] | | | | | | MEDICAL | | | | | | CENTER - | | | | | | LABORATORY | | + + + + + + | Absolute | 0.00 | 0.00 - 0.01 | [facility] | | | nRBC | | K/uL | [facility] | | | | | | MEDICAL [...] ST. | [address] | [place], [place] | [phone] | | [facility] | | [address] | | | - LABORATORY | | [...] | | | | mg/dL | [facility] | | | | | | MEDICAL | | | | | | CENTER - | | | | | | LABORATORY | | + + + + + + | eGFR if not | >60Comment: GLOMERULAR | >=60 | [facility] | | | | FILTRATION | mL/min/1.73m2 | [facility] | | | ROMANIAN | RATE,ESTIMATED | | MEDICAL | | | | mL/min/1.46a6Ztmq than | | CENTER - | | [...] 8.5 (L) | 8.7 - 10.4 | [facility] | | | | | mg/dL | [facility] | | | | | | MEDICAL | | | | | | CENTER - | | | | | | LABORATORY | | + + + + + + | BUN/Creatin | 20.0 | | [facility] | | | ine Ratio | | | [facility] | | | | | | MEDICAL [...] [address] | [place] | [phone] | | [facility] | | [address] | | | - LABORATORY | | [...] | | | | | | [facility] | | | | | | MEDICAL | | | | | | CENTER - | | | | | | LABORATORY | | + + + + + + | RBC | 3.43 (L) | 3.70 - 5.20 | [facility] | | | | | M/uL | [facility] | | | | | | MEDICAL [...] | | | | | | [facility] | | | | | | MEDICAL [...] | | Immature | | K/uL | [facility] | | | Granulocyte | | | MEDICAL | | | s | | | CENTER - | | | | | | LABORATORY | | + + + + + + | % nRBC | 0 | 0 - 2 per 100 | [facility] | | | | | WBCs | [facility] | | | | | | MEDICAL | | | | | | CENTER - | | | | | | LABORATORY | | + + + + + + | Absolute | 0.00 | 0.00 - 0.01 | [facility] | | | nRBC | | K/uL | [facility] | | | | | | MEDICAL [...] [address] | [place] | [phone] | | [facility] | | [address] | | | - LABORATORY | | [...] 11 | 9 - 23 mg/dL | [facility] [...] | | | FILTRATION | mL/min/1.73m2 | [facility] | | | ROMANIAN | RATE,ESTIMATED | | MEDICAL | | | | mL/min/1.59o4Awxg than | | CENTER - | | [...] 8.5 (L) | 8.7 - 10.4 | [facility] | | | | | mg/dL | [...] [address] | [place] | [phone] | | [facility] | | [address] | | | - LABORATORY | | [...] [facility] | | | | | | [facility] | | | | | | MEDICAL | | | | | | CENTER - | | | | | | LABORATORY | | + + + + + + | RBC | 3.21 (L) | 3.70 - 5.20 | [facility] | | | | | M/uL | [facility] [...] | Immature | | K/uL | [facility] | | | Granulocyte | | | MEDICAL | | | s | | | CENTER - | | | | | | LABORATORY | | + + + + + + | % nRBC | 0 | 0 - 2 per 100 | [facility] | | | | | WBCs | [facility] | | | | | | MEDICAL | | | | | | CENTER - | | | | | | LABORATORY | | + + + + + + | Absolute | 0.00 | 0.00 - 0.01 | [facility] | | | nRBC | | K/uL | [facility] | | | | | | MEDICAL [...] [address] | [place] | [phone] | | [facility] | | [address] | | | - [...] | | | | | | [facility] | | | | | | MEDICAL [...] [address] | [place] | [phone] | | [facility] | | [address] | | | - LABORATORY | | [...] | | | | mmol/L | [facility] | | | | | | MEDICAL | | | | | | CENTER - | | | | | | LABORATORY | | + + + + + + | K | 4.1 | 3.4 - 5.1 | [facility] | | | | | mmol/L | [facility] | | | | | | MEDICAL [...] 13 | 9 - 23 mg/dL | [facility] | | | | | | [facility] | | | | | | MEDICAL | | | | | | CENTER - | | | | | | LABORATORY | | + + + + + + | Creatinine | 0.63 | 0.55 - 1.02 | [facility] | | | | | mg/dL | [facility] | | | | | | MEDICAL | | | | | | CENTER - | | | | | | LABORATORY | | + + + + + + | eGFR if not | >60Comment: GLOMERULAR | >=60 | [facility] | | | | FILTRATION | mL/min/1.73m2 | [facility] | | | ROMANIAN | RATE,ESTIMATED | | MEDICAL | | | | mL/min/1.27g4Avzy than | | CENTER - | | [...] | | | | mg/dL | [facility] | | | | | | MEDICAL [...] + | [facility] | [address] | [place] | [phone] | | [facility] | | [address] | | | - LABORATORY | | [...] [address] | [place] | [phone] | | [facility] | | [address] | | | - LABORATORY | | [...] [address] | [place] | [phone] | | [facility] | | [address] | | | - LABORATORY | | [...] | Neutrophils | | K/uL | [facility] | | | | | | MEDICAL | | | | | | CENTER - | | | | | | LABORATORY | | + + + + + + | Absolute | 1.42 | 0.60 - 3.20 | [facility] | | | Lymphocytes | | K/uL | [facility] | | | | | | MEDICAL | | | | | | CENTER - | | | | | | LABORATORY | | + + + + + + | Absolute | 1.68 (H) | 0.00 - 1.00 | [facility] | | | Monocytes | | K/uL | [facility] | | | | | | MEDICAL | | | | | | CENTER - | | | | | | LABORATORY | | + + + + + + | Absolute | 0.06 | 0.00 - 0.40 | [facility] | | | Eosinophils | | K/uL | [facility] | | | | | | MEDICAL [...] [address] | [place] | [phone] | | [facility] | | [address] | | | - LABORATORY | | [...] | | | | mmol/L | [facility] | | | | | | MEDICAL [...] 13 | 9 - 23 mg/dL | [facility] | | | | | | [facility] | | | | | | MEDICAL | | | | | | CENTER - | | | | | | LABORATORY | | + + + + + + | Creatinine | 0.67 | 0.55 - 1.02 | [facility] | | | | | mg/dL | [facility] | | | | | | MEDICAL | | | | | | CENTER - | | | | | | LABORATORY | | + + + + + + | eGFR if not | >60Comment: GLOMERULAR | >=60 | [facility] | | | | FILTRATION | mL/min/1.73m2 | [facility] | | | ROMANIAN | RATE,ESTIMATED | | MEDICAL | | | | mL/min/1.41p4Sdnj than | | CENTER - | | [...] + | [facility] | [address] | [place] | [phone] | | [facility] | | [address] | | | - LABORATORY | | [...] | | | | Enterococcus | | [facility] | | | | faeciumComment: For | [...] | | Escherichia coli | | [facility] | | | | | | MEDICAL [...] [address] | [place] | [phone] | | [facility] | | [address] | | | - LABORATORY | | [...] - 1.030 | [facility] | | | [place], | | | [facility] | | [...] ST. | [address] | [place] | [phone] | | [facility] | | [address] | | | - LABORATORY | | [...] + | Kboe, Rad Results In - 08/21/2019 12:48 PM [...] + | [facility] | [address] | [place] | [phone] | | [facility] | | [address] | | | - LABORATORY | | [...] | | | incubation. | | [facility] | | | | | [...] | [address] | [place], [place] | [phone] | | [facility] | | [address] | | | - LABORATORY | | [...] | | | | | | [facility] | | | | | | MEDICAL | | | | | | CENTER - | | | | | | LABORATORY | | + + + + + + | RBC | 3.92 | 3.70 - 5.20 | [facility] | | | | | M/uL | [facility] | | | | | | MEDICAL | | | | | | CENTER - | | | | | | LABORATORY | | + + + + + + | Hemoglobin | 11.1 (L) | 11.5 - 16.0 | [facility] | | | | | g/dL | [facility] | | | | | | MEDICAL [...] | Neutrophils | | K/uL | [facility] | | | | | | MEDICAL | | | | | | CENTER - | | | | | | LABORATORY | | + + + + + + | Absolute | 1.22 | 0.60 - 3.20 | [facility] | | | Lymphocytes | | K/uL | [facility] | | | | | | MEDICAL [...] | Basophils | | K/uL | [facility] | | | | | | MEDICAL [...] [address] | [place] | [phone] | | [facility] | | [address] | | | - LABORATORY | | [...] 15 | 9 - 23 mg/dL | [facility] | | | | | | [facility] | | | | | | MEDICAL | | | | | | CENTER - | | | | | | LABORATORY | | + + + + + + | Creatinine | 0.76 | 0.55 - 1.02 | [facility] | | | | | mg/dL | [facility] | | | | | | MEDICAL | | | | | | CENTER - | | | | | | LABORATORY | | + + + + + + | eGFR if not | >60Comment: GLOMERULAR | >=60 | [facility] | | | | FILTRATION | mL/min/1.73m2 | [facility] | | | ROMANIAN | RATE,ESTIMATED | | MEDICAL | | | | mL/min/1.81z4Pgzn than | | CENTER - | | [...] | | | | mg/dL | [facility] | | | | | | MEDICAL [...] [address] | [place] | [phone] | | [facility] | | [address] | | | - LABORATORY | | [...] [address] | [place] | [phone] | | [facility] | | [address] | | | - LABORATORY | | [...] + | [facility] | [address] | [place] | [phone] | | [facility] | | [address] | | | - LABORATORY | | [...] | | | | | | n [place] | | | | | + +---------+ [...] | | | | | | n [place] | | | | | + +---------+ [...] [address] | [place] | [phone] | | [facility] | | [address] | | | - LABORATORY | | | | + + + + + Hemoglobin and Hematocrit (08/20/2019 9:02 AM PST) + + + + + + | Component | Value | Ref Range | Performed | Pathologist | | | | | At | Signature | + + + + + + | Hematocrit | 34.1 | 34.0 - 47.0 % | [facility] | | | | | | [facility] | | | | | | MEDICAL | | | | | | CENTER - | | | | | | LABORATORY | | + + + + + + | Hemoglobin | 10.3 (L) | 11.5 - 16.0 | [facility] | | | | | g/dL | [facility] | | | | | | MEDICAL [...] | [address] | [place] | [phone] | | [facility] | | [address] | | | - LABORATORY | | | | + + + + + EGD (08/20/2019 7:23 AM PST) + + | Specimen | + + | | + + + + ----+ | Narrative | Performed At | + + ----+ | [facility] | [facility] | | [facility] HospitalologyPatient Name: Ángela Crowley | PROVATION | | JoanneProcedure Date: 08/20/2019 7:23 AMMRN: [id number] | | | Number: [id number] of : 1930Note Status: | | | FinalizedAttending MD: JOHN BOUCHER , [facility] GADSDENrocedure Type: | | | Upper GI endoscopyIndications: 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 | | |JOHN BOUCHER MD | | |08/20/2019 7:58:49 AM | | |This report has been signed electronically. | | |Note Initiated On: 08/20/2019 7:23 AM | | |Number of Addenda: 0 | | | [facility] | | + + ----+ + [...] | | | | LEONIDAS CALVO MD ([id number]) | | | | | | on [...] | | | | | | [employer] | | | | | [...] [address] | [place] | [phone] | | [facility] | | [address] | | | - LABORATORY | | [...] + | [facility] | [address] | [place] | [phone] | | [facility] | | [address] | | | - LABORATORY | | [...] | | | | M/uL | [facility] | | | | | | MEDICAL | | | | | | CENTER - | | | | | | LABORATORY | | + + + + + + | Hemoglobin | 9.7 (L) | 11.5 - 16.0 | [facility] | | | | | g/dL | [facility] | | | | | | MEDICAL | | | | | | CENTER - | | | | | | LABORATORY | | + + + + + + | Hematocrit | 32.3 (L) | 34.0 - 47.0 % | [facility] | | | | | | [facility] | | | | | | MEDICAL | | | | | | CENTER - | | | | | | LABORATORY | | + + + + + + | MCV | 93.6 | 83.0 - 101.0 fL | [facility] | | | | | | [facility] | | | | | | MEDICAL [...] | [address] | [place] | [phone] | | [facility] | | [address] | | | - LABORATORY | | [...] | 0.64 | 0.55 - 1.02 | [facility] | | | | | mg/dL | [facility] | | | | | | MEDICAL | | | | | | CENTER - | | | | | | LABORATORY | | + + + + + + | eGFR if not | >60Comment: GLOMERULAR | >=60 | [facility] | | | | FILTRATION | mL/min/1.73m2 | [facility] | | | ROMANIAN | RATE,ESTIMATED | | MEDICAL | | | | mL/min/1.05f6Usnq than | | CENTER - | | [...] [address] | [place] | [phone] | | [facility] | | [address] | | | - LABORATORY | | [...] [address] | [place] | [phone] | | [facility] | | [address] | | | - LABORATORY | | [...] [address] | [place] | [phone] | | [facility] | | [address] | | | - LABORATORY | | [...] | | | | | | [employer] | | | | | [...] [address] | [place] | [phone] | | [facility] | | [address] | | | - LABORATORY | | | | + + + + + Red Blood Cells (PRBC) - Crossmatch (08/19/2019 6:15 PM PST) + + + + + + | Component | Value | Ref Range | Performed | Pathologist | | | | | At | Signature | + + + + + + | Product | [id number] | | [facility] | | | Code | | | [facility] | | | | | | MEDICAL | | | | | | CENTER - | | | | | | BLOOD BANK | | + + + + + + | UNIT # | [id number] | | [facility] | | | | | | [facility] | | | | | | MEDICAL [...] + + + + | Blood | [id number] | | [facility] | | | Product | | | [facility] | | | Expiration | | | MEDICAL | | | Date and | | | CENTER - | | | Time | | | BLOOD BANK | | + + + + + + | Product | [id number] | | [facility] | | | Blood Type | | | [facility] | | | Barcode | | | [...] + | [facility] | [address] | [place] | | | [facility] | | [address] | | | - BLOOD BANK | [...] | | | | mg/dL | [facility] | | | | | | MEDICAL [...] + | [facility] | [address] | [place] | [phone] | | [facility] | | [address] | | | - LABORATORY | | | | + + + + + Ferritin (08/19/2019 4:45 PM PST) + +-------+ + + + | Component | Value | Ref Range | Performed | Pathologist | | | | | At | Signature | + +-------+ + + + | FERRITIN | 65 | 7 - 271 ng/mL | [facility] | | | | | | [facility] | | | | | | MEDICAL [...] ST. | [address] | [place], [place] | [phone] | | [facility] | | [address] | | | - LABORATORY | | [...] [address] | [place] | [phone] | | [facility] | | [address] | | | - LABORATORY | | [...] [address] | [place] | [phone] | | [facility] | | [address] | | | - LABORATORY | | [...] [address] | [place] | [phone] | | [facility] | | [address] | | | - LABORATORY | | [...] + | [facility] | [address] | [place] | | | [facility] | | [address] | | | - BLOOD BANK | [...] | | Reticulocyt | | | [facility] | | | e Count | | | MEDICAL | | | | | | CENTER - | | | | | | LABORATORY | | + + + + + + | Absolute | 0.0556 | 0.0164 - 0.0776 | [facility] | | | Reticulocyt | | M/uL | [facility] | | | e Count | | | MEDICAL | | | | | | CENTER - | | | | | | LABORATORY | | + + + + + + | Immature | 9.8Comment: Values above | 2.3 - 15.9 % | [facility] | | | Reticulocyt | normal range indicate | | [facility] | | | e Fraction | an [...] pg are an early | | [facility] | | | Hemoglobin | indicator of [...] + | [facility] | [address] | [place] | [phone] | | [facility] | | [address] | | | - LABORATORY | | [...] | | | | | | [employer] | | | | | [...] [address] | [place] | [phone] | | [facility] | | [address] | | | - LABORATORY | | [...] | | | | mmol/L | [facility] | | | | | | MEDICAL [...] | | | | | | [facility] | | | | | | MEDICAL | | | | | | CENTER - | | | | | | LABORATORY | | + + + + + + | Creatinine | 0.76 | 0.55 - 1.02 | [facility] | | | | | mg/dL | [facility] | | | | | | MEDICAL | | | | | | CENTER - | | | | | | LABORATORY | | + + + + + + | eGFR if not | >60Comment: GLOMERULAR | >=60 | [facility] | | | | FILTRATION | mL/min/1.73m2 | [facility] | | | ROMANIAN | RATE,ESTIMATED | | MEDICAL | | | | mL/min/1.50c9Dgsr than | | CENTER - | | [...] | [address] | [place], [place] | [phone] | | [facility] | | [address] | | | - LABORATORY | | [...] | | | | | | [facility] | | | | | | MEDICAL | | | | | | CENTER - | | | | | | LABORATORY | | + + + + + + | % Immature | 0.2 | 0.0 - 0.4 % | [facility] | | | Granulocyte | | | [facility] | | | s | | | MEDICAL | | | | | | CENTER - | | | | | | LABORATORY | | + + + + + + | Absolute | 9.46 (H) | 1.80 - 8.50 | [facility] | | | Neutrophils | | K/uL | [facility] | | | | | | MEDICAL [...] | Monocytes | | K/uL | [facility] | | | | | | MEDICAL | | | | | | CENTER - | | | | | | LABORATORY | | + + + + + + | Absolute | 0.01 | 0.00 - 0.40 | [facility] | | | Eosinophils | | K/uL | [facility] | | | | | | MEDICAL | | | | | | CENTER - | | | | | | LABORATORY | | + + + + + + | Absolute | 0.02 | 0.00 - 0.10 | [facility] | | | Basophils | | K/uL | [facility] | | | | | | MEDICAL | | | | | | CENTER - | | | | | | LABORATORY | | + + + + + + | Absolute | 0.02 | 0.00 - 0.03 | [facility] | | | Immature | | K/uL | [facility] | | | Granulocyte | | | [...] + | [facility] | 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 | + + | S/p TAVR (transcatheter aortic valve replacement), bioprosthetic | + + | Panlobular emphysema (HCC) Other emphysema | + + | Uses walker | + + | Impaired mobility Other ill-defined conditions | + + | Chest pain Chest pain, unspecified | + + | COPD (chronic obstructive pulmonary disease) (HCC) Chronic airway obstruction, not | | elsewhere classified | + + | Pressure injury of sacral region, stage 3 (HCC) | + + | Generalized anxiety disorder [...] Shortness of Breath, | | | Starting [facility] 08/25/19 at 1350 | | + +---+ | | | + +---+ + +-------+ +-------+---+---+ | albuterol-ipratropium 2.5-0.5 | Given | 08/21/20 | 3 mLs | | | | mg/3 mL nebulizer solution 3 mL | | 19 6:12 | | | | | 3 mL, Nebulization, RT EVERY 6 | | AM PST | | | | | HOURS PRN, Wheezing, Shortness of | | | | | | | Breath, Starting [facility] 08/19/19 at | | | | | | | 2123 | | | | | | + +-------+ +-------+---+---+ +-------+ +-------+---+---+ | Given | 08/20/20 | 3 mLs | | | | | 19 1:49 | | | | | | PM PST | | | | +-------+ +-------+---+---+ | Given | 08/20/20 | 3 mLs | | | | | 19 9:45 | | | | | | AM [...] ampicillin-sulbactam (UNASYN) 3 | New Bag | 08/24/20 | 3 g | 200 | | | g in sodium chloride 0.9% 100 mL | | 19 2:37 | | mL/hr | | | IVPB 3 g, Intravenous, | | AM PST | | | | | Administer over 30 Minutes, EVERY | | | | | | | 6 HOURS INTERVAL, First dose on | | | | | | | 08/23/19 at 1400, Activate | | | | | | | system and mix before use., | | | | | | | Indications: Intra-Abdominal | | | | | | | Infection | | | | | | + +---------+ +-----+-------+---+ +---------+ +-----+-------+---+ | New Bag | 08/23/20 | 3 g | 200 | | | | 19 8:12 | | mL/hr | | | | PM PST | | | | +---------+ +-----+-------+---+ | New Bag | 08/23/20 | 3 g | 200 | | | | 19 2:25 | | mL/hr | | | | PM PST | | | | +---------+ +-----+-------+---+ +---+---+ | | | +---+---+ + +-------+ +--------+---+---+ | aspirin chewable tablet 324 mg | Given | 08/19/20 | 324 mg | | | | 324 mg, Oral, ONCE, [facility] 08/19/19 | | 19 2:09 | | | | | at 1355, For 1 dose, Unless | | PM PST | | | | | given prior to arrival, | | | | | | + [...] +-------+ +--------+---+---+ +-------+ +--------+---+---+ | Given | 20 | 0.5 mg | | | | [...] PST | | | | | on 08/25/19 at 1630 | | | | | [...] | ciprofloxacin (CIPRO) tablet | Given | 08/26/20 | 500 mg | | | | 500 mg 500 mg, Oral, 2 TIMES | | 19 8:42 | | | | | DAILY, First dose on Fri08/24/19 | | AM PST | | | | | at 0900, Give 2 hours before or | | [...] +-------+ +--------+---+---+ | Given | 08/25/20 | 500 mg | | | | | 19 9:49 | | | | | | PM PST | | | | +-------+ +--------+---+---+ | Given | 08/25/20 | 500 mg | | | | | 19 8:03 | | | | | | AM PST | | | | +-------+ +--------+---+---+ +---+---+ | | | +---+---+ + +-------+ +-------+---+---+ | dicyclomine (BENTYL) capsule 20 | Given | 08/26/20 | 20 mg | | | | mg 20 mg, Oral, 3 TIMES DAILY | | 19 4:36 | | | | | CHRIS SEN Starting Mon | | AM PST | [...] | | | | | dose on 08/20/19 at 0900 | | AM PST | [...] | famotidine (PEPCID) injection | Given | 08/19/20 | 20 mg | | | | 20 mg 20 mg, Intravenous, ONCE, | | 19 3:54 | | | | | Zofia 08/19/19 at 1545, For 1 dose, | | PM PST | | | | | Dilute 2 mL of famotidine with 8 | | | | | | | mL of normal saline to a final | | | | | | | concentration of 2 mg/mL. | | | | | | | Administer ordered dose over a | | | | | | | period of at least 2 minutes., | | | | | | + +-------+ +-------+---+---+ +---+---+ | | | +---+---+ + +---------+ +--------+-------+---+ | ferric gluconate (FERRLECIT) | New Bag | 08/20/20 | 125 mg | 110 | | | 125 mg in sodium chloride 0.9% | | 19 9:55 | | mL/hr | | | 100 mL IVPB 125 mg, Intravenous, | | PM PST | | | | | Administer over 1 Hours, EVERY | | | | | | | 24 HOURS INTERVAL, First dose on | | | | | | | 08/20/19 at 2100 | | | | | | + +---------+ +--------+-------+---+ +---+---+ | | | +---+---+ + +---------+ +--------+-------+---+ | ferric gluconate (FERRLECIT) | New Bag | 08/24/20 | 125 mg | 110 | | | 125 mg in sodium chloride 0.9% | | 19 11:51 | | mL/hr | | | 100 mL IVPB 125 mg, Intravenous, | | PM PST | | | | | Administer over 1 Hours, DAILY, | | | | | | | First dose on Fri08/24/19 at | | | | | | | 2100, For 3 doses | | | | | | + +---------+ +--------+-------+---+ +---+---+ | | | +---+---+ + +---------+ +--------+-------+---+ | ferric gluconate (FERRLECIT) | New Bag | 08/25/20 | 125 mg | 110 | | | 125 mg in sodium chloride 0.9% | | 19 9:49 | | mL/hr | | | 100 mL IVPB 125 mg, Intravenous, | | PM PST | | | | | Administer over 1 Hours, DAILY, | | | | | | | First dose (after last | | | | | | | modification) on Fri08/25/19 at | | | | | | | 2100, For 2 doses | | | | [...] iohexol (OMNIPAQUE 350) 350 | Given | 08/21/20 | 75 mLs | | | | mg/mL injection 75 mL 75 mL, | | 19 11:53 | | | | | Intravenous, ONCE PRN, Other, | | AM PST | | | | | Starting 08/21/19 at 1153, | | | | | | | For 1 dose, Cat Scanner | | | | | | + +-------+ +--------+---+---+ +---+---+ | | | +---+---+ + +---------+ +---------+-------+---+ | lactated ringers (LR) bolus 500 | New Bag | 08/21/20 | 500 mLs | 250 | | | mL 500 mL, Intravenous, | | 19 8:44 | | mL/hr | | | Administer over 2 Hours, ONCE, | | AM PST | | | | | 08/21/19 at 0830, For 1 dose | | | | [...] | | +---+---+ + +-------+ +--------+---+---+ | metroNIDAZOLE (FLAGYL) tablet | Given | 08/25/20 | 500 mg | | | | 500 mg 500 mg, Oral, 3 TIMES | | 19 9:49 | | | | | DAILY, First dose on Fri08/24/19 | | PM PST | | | | | at 0900, Indications: | | | | | | | Diverticulitis of the | | | | | | | Gastrointestinal Tract | | | | | | + +-------+ +--------+---+---+ +-------+ +--------+---+---+ | Given | 08/25/20 | 500 mg | | | | | 19 1:38 | | | | | | PM PST | | | | +-------+ +--------+---+---+ | Given | 08/25/20 | 500 mg | | | | | 19 [...] | +---+---+ + +---------+ +---------+ +---+ | pantoprazole (PROTONIX) 0.8 | New Bag | 08/20/20 | 8 mg/hr | 10 mL/hr | | | mg/mL in sodium chloride 0.9% 100 | | 19 3:35 | | | | | mL infusion 8 mg/hr (10 mL/hr), | | AM PST | | | | | at 10 mL/hr, Intravenous, | | | | | | | CONTINUOUS, Starting Zofia 08/19/19 | | | | | | | at 1705, After protonix 80mg IV | | | | | | | loading dose given, Indication: | | | | | | | Bleed, upper GI | | | | | | + +---------+ +---------+ +---+ +---------+ +---------+ +---+ | New Bag | 08/19/20 | 8 mg/hr | 10 mL/hr | | | | 19 5:36 | | | | | | PM [...] +-------+---+---+ | pantoprazole (PROTONIX) | Given | 08/19/20 | 80 mg | | | | injection 80 mg 80 mg, | | 19 5:22 | | | | | Intravenous, ONCE, [facility] 08/19/19 | | PM PST | | | | | at 1655, For 1 dose, Indication: | | | | | | | Bleed, upper GI | | | | | | + +-------+ +-------+---+---+ +---+---+ | | | +---+---+ + +---------+ +---------+-------+---+ | piperacillin-tazobactam (ZOSYN) | New Bag | 08/21/20 | 3.375 g | 200 | | | 3.375 g in sodium chloride 0.9% | | 19 2:27 | | mL/hr | | | 100 mL IVPB 3.375 g, | | PM PST | | | | | Intravenous, Administer over 0.5 | | | | | | | Hours, ONCE, 08/21/19 at | | | | | | | 1330, For 1 dose, | | | | | | | Extended-Infusion Zosyn Protocol: | | | | | | | infuse bolus over 30 minutes, | | | | | | | followed in 4 hours by | | | | | | | maintenance dosing. Activate | | | | | | | system and mix before use., | | | | | | | Indications: Acute Abdominal | | | | | | | Condition | | | | | | + +---------+ +---------+-------+---+ +---+---+ | | | +---+---+ + +---------+ +---------+ +---+ | piperacillin-tazobactam (ZOSYN) | New Bag | 08/23/20 | 3.375 g | 25 mL/hr | | | 3.375 g in sodium chloride 0.9% | | 19 9:50 | | | | | 100 mL IVPB 3.375 g, | | AM PST | | | | | Intravenous, Administer over 4 | | | | | | | Hours, EVERY 8 HOURS INTERVAL, | | | | | | | First dose on 08/21/19 at | | | | | | | 1745, Extended-Infusion Zosyn | | | | | [...] | | | | | | Indications: Acute Abdominal | | | | | | | Condition | | | | | | + +---------+ +---------+ +---+ +---------+ +---------+ +---+ | New Bag | 08/23/20 | 3.375 g | 25 mL/hr | | | | 19 2:25 | | | | | | AM PST | | | | +---------+ +---------+ +---+ | New Bag | 08/22/20 | 3.375 g | 25 mL/hr | | | | 19 6:16 | | | | | | PM PST | | | | +---------+ +---------+ +---+ +---+---+ | | | +---+---+ + +-------+ +--------+---+---+ | potassium chloride (Klor-Con | Given | 08/19/20 | 40 mEq | | | | M20) ER tablet 40 mEq 40 mEq, | | 19 5:21 | | | | | Oral, ONCE, [facility] 08/19/19 at 1655, | | PM PST | | | | | For 1 dose | | | | | | + +-------+ +--------+---+---+ +---+---+ | | | +---+---+ + +---------+ +--------+ +---+ | potassium chloride 20 mEq in | New Bag | 08/21/20 | 20 mEq | 65 mL/hr | | | sodium chloride 0.45% 250 mL IVPB | | 19 8:44 | | | | | 20 mEq, Intravenous, Administer | | AM PST | | | | | over 4 Hours, ONCE, 08/21/19 | | | | | | | at 0815, For 1 dose | | [...] | +---+---+ + +---------+ +---+ +---+ | sodium chloride 0.45% with KCl | New Bag | 08/22/20 | | 75 mL/hr | | | 20 mEq/L (10/07 NS + KCL 20) | | 19 2:22 | | | | | infusion at 75 mL/hr, | | AM PST | | | | | Intravenous, CONTINUOUS, Starting | | | | | | | 08/21/19 at 1000 | | | | | | + +---------+ +---+ +---+ +---------+ +---+ +---+ | New Bag | 08/21/20 | | 75 mL/hr | | | | 19 12:17 | | | | | | PM PST | | | | +---------+ +---+ +---+ + +---+ | | | + +---+ | trolamine salicylate | | | (ASPERCREME) 10% cream Topical, | | | 4 TIMES DAILY PRN, Pain, Starting | | | 08/24/19 at 0935, Apply to: | | [...]
--- OUTSIDE RECORDS SUMMARY | ~2020-03-14 | XMS | Encounter Summary ---
Demographics + + + | Address | [address] | | | [place] [address] | + + + | Home Phone [...] Team Providers + +------+ + | Care Prism Inspector Name | Role | Phone | [...] + + + + | 11/25/ | Home Care | [facility] [place] | Desi Rachel RN | [facility] ([place]) | | 2020 | Visit | [place] [address] | | | | | | [place] | | | | | | [address] | | | | | | [phone] | | | +--------+ + + + [...] + + + | Blood Pressure | 128/66 | 11/25/2019 11:07 AM | | | | | PST | | + + + + + | Pulse | 88 | 11/25/2019 11:07 AM | | | | | PST | | + + + + + | Temperature | 36.7 C (98 F) | 11/25/2019 11:07 AM | | | | | PST | | + + + + + | Respiratory Rate | 20 | 11/25/2019 11:07 AM | | | | | PST | | + + + + + | Oxygen Saturation | 98% | 11/25/2019 11:07 AM | 3L NC | | | | PST | | + + + + + | Inhaled Oxygen | - | - | | | Concentration | | | | + + + + + | Weight | 54.9 kg (121 lb) | 11/25/2019 11:07 AM | | | | | PST | | + + + + + | Height | 157.5 cm (5' 2") | 11/25/2019 11:07 AM | | | | | PST | | + + + + + | Body Mass Index | 22.13 | 11/25/2019 11:07 AM | | | [...] | | | | | [place] [address] | | | | | | [phone] | | | | | | | | +--------+ + + + + | 04/13/ | Office | Cardiology | Shawn Michael | | | 2019 | Visit | | MD Marcelino [address] | | | | | | [address] [place] | | | | | | [place] [address] | | | | | | [phone] | | | | | | | [...] START OF CARE | | Discipline - Detention | + + + + +--------+--------+-------+ + [...] | | | | n | | Detention | | | | | scheduled/d | [...] | | Active | | | | Detention | | 020 | | | interventio [...] | Assess/monitor | Problem: | | | 98% sats with 3L O2 | | respiratory status | Oxygenation/Respirat | Comple | | NC. Lung sounds | | Description: | ory Function | yoel | | diminished on base. She | | Instruct pt/CG safe | | | | just received breathing | | O2 use. Assess O2 | | | | treatment. | | saturation each time | | | | | | RN visit. RN/ CG | | | | | | to notify MD if O2 | | | | | | sats < 89%. | | | | | + + +--------+--------+ + | Wound care | Problem: Wound | | | Cleaned with NS. | | Description: Wound | Management | Comple | | Applied skin prep and | | type: Pressure sore | | yoel | | foam with border. | | Wound location: | | | [...]
--- OUTSIDE RECORDS SUMMARY | ~2020-03-14 | XMS | Encounter Summary ---
Demographics + + + | Address | [address] | | | [place] [address] | + + + | Home Phone [...] Team Providers + +------+ + | Care Timber Packer Name | Role | Phone | + [...] Related | | 2019 | | MEDICINE [address] [place] [address] | MD Candido | | | | | [facility] | [address] [place] [address] | | | | | [place] [address] | [place] [address] | | | | | [phone] | [phone] | | | | | | | [...] | | 2019 | Visit | | PHYSICAL THERAPY DIRECTOR [address] | | | | | | [place] | | | | | | [address] | | | | | | | | +--------+ + + + + | 04/11/ | Appointment | Radiology | Shawn Michael | | | 2019 | | | MD [address] | | | | | | [address] [place] | | | | | | [place] [address] | | | | | | [phone] | | | | | | | | +--------+ + + + + | 04/13/ | Office | Cardiology | Shawn Michael | | | 2019 | Visit | | MD [address] | | | | | | [address] [place] | | | | | | [place] [address] | | | | | | [phone] | | | | | | | | +--------+ + + + + documented as of this encounter Visit Diagnoses + + | Diagnosis | + + | Generalized osteoarthritis Generalized osteoarthrosis, unspecified site | + + | 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
--- OUTSIDE RECORDS SUMMARY | ~2020-03-14 | XMS | Encounter Summary ---
Demographics + + + | Address | [address] | | | [place] [address] | + + + | Home Phone [...] Team Providers + +------+ + | Care Routing Clerk Name | Role | Phone | [...] [place], [place] | | | | | [address] | [id number] | | | | | [phone] | | | +--------+ + + + [...] | | 2019 | Visit | | GROUNDSKEEPING MAINTENANCE WORKER [address] | | | | | | [place] | | | | | | [address] | | | | | | | | +--------+ + + + + | 04/11/ | Appointment | Radiology | Shawn Michael | | | 2019 | | | MD [address] | | | | | | [address] [place] | | | | | | [place] [address] | | | | | | [phone] | | | | | | | | +--------+ + + + + | 04/13/ | Office | Cardiology | Shawn Michael | | | 2019 | Visit | | MD [address] | | | | | | [address] [place] | | | | | | [place] [address] | | | | | | [phone] | | | | | | | [...]
--- OUTSIDE RECORDS SUMMARY | ~2020-03-14 | XMS | Encounter Summary ---
Demographics + + + | Address | [address] | | | [place] [address] | + + + | Home Phone [...] Team Providers + +------+ + | Care Geotechnician Name | Role | Phone | + [...] + | 11/10/ | Telephone | [facility] | Nikolay, | Other | | 2019 | | MEDICINE [address] [place] [address] | MD Candido | | | | | [facility] | [address] [place] [address] | | | | | [place] [address] | [place] [address] | | | | | [phone] | [phone] | | | | | | | [...] | | 2019 | Visit | | LIBRARY SERVICES ASSISTANT [address] | | | | | | [place] | | | | | | [address] | | | | | | | | +--------+ + + + + | 04/11/ | Appointment | Radiology | Shawn iMchael | | | 2019 | | | MD [address] | | | | | | [address] [place] | | | | | | [place] [address] | | | | | | [phone] | | | | | | | | +--------+ + + + + | 04/13/ | Office | Cardiology | Shawn Michael | | 2019 | Visit | | MD [address] | | | | | | [address] [place] | | | | | | [place] [address] | | | | | | [phone] | | | | | | | [...]
--- OUTSIDE RECORDS SUMMARY | ~2020-03-14 | XMS | Encounter Summary ---
Demographics + + + | Address | [address] | | | [place] [address] | + + + | Home Phone [...] Team Providers + +------+ + | Care Beam Doffer Name | Role | Phone | + [...] [place] [address] | Radha, PRODUCT STEWARD | | | | | [place] | [phone] | | | | | [address] | | | | | | [phone] | | | +--------+ + + + [...] [place] | | | | | | [id number] | | | | | | | | +--------+ + + + + | 04/11/ | Appointment | Radiology | Shawn Michael | | 2019 | | | MD Marcelino [address] | | | | | | [address] | | | | | | [place] [address] | | | | | | [phone] | | | | | | | | +--------+ + + + + | 04/13/ | Office | Cardiology | Andi Michaelehr | | | 2019 | Visit | | MD Marcelino [address] | | | | | | [address] | | | | | | [place] [address] | | | | | | [phone] | | | | | | | [...]
--- OUTSIDE RECORDS SUMMARY | ~2020-03-14 | XMS | Encounter Summary ---
Demographics + + + | Address | [address] | | | [place] [address] | + + + | Home Phone [...] Team Providers + +------+ + | Care Archivist Name | Role | Phone | + [...] [place] | | | | | | [address] | | | | | | [phone] | | | +--------+ + + + [...] [place] | | | | | | [address] | | | | | | | | +--------+ + + + + | 04/11/ | Appointment | Radiology | Shawn Michael | | | 2019 | | | MD Marcelino [address] | | | | | | [address] | | | | | | [place] [address] | | | | | | [phone] | | | | | | | | +--------+ + + + + | 04/13/ | Office | Cardiology | Zacharynnamdi Shawn | | | 2019 | Visit | | MD Marcelino [address] | | | | | | [address] [place] | | | | | | [place] [address] | | | | | | [phone] | | | | | | | [...] - Correction | + + + + +--------+--------+-------+ + | Problem | Description | Start | Status | Goals | Interventio | | | | Date | | | ns | + + +--------+--------+-------+ + | [facility] | | | | - | 1 problem | | Disciplines: | | 06/13/20 | Active | | | | Correction, | | 19 | | | interventio [...] 06/13/20 | Active | | | | Correction | | 19 | | | interventio [...] 19 | | | interventio | | Correction | | | | | n | [...] | | | | n | | Correction | | | | [...] | | | | n | | Correction | | | | [...] 06/13/20 | Active | | | | Correction | | 19 | | | interventio [...]
--- OUTSIDE RECORDS SUMMARY | ~2020-03-14 | XMS | Encounter Summary ---
Demographics + + + | Address | [address] | | | [place] [address] | + + + | Home Phone [...] Team Providers + +------+ + | Care Car Dealer Name | Role | Phone | [...] 09/16/ | Home Care | [facility] [place] | Emily Reynolds, PT | CASE COMMUNICATION | | 2019 | Visit | [place] [address] | | | | | | [place] | | | | | | [address] | | | | | | [phone] | | | +--------+ + + + [...] | | | | | [place] [address] | | | | | | [phone] | | | | | | | | +--------+ + + + + | 04/13/ | Office | Cardiology | Shawn Michael | | 2019 | Visit | | MD Marcelino [address] | | | | | | [place] | | | | | | [place] [address] | | | | | | [phone] | | | | | | | [...]
--- OUTSIDE RECORDS SUMMARY | ~2020-03-14 | XMS | Encounter Summary ---
Demographics + + + | Address | [address] | | | [place] [address] | + + + | Home Phone [...] Team Providers + +------+ + | Care Ops Analyst Name | Role | Phone | [...] Visit | [facility] [address] | MANUFACTURING CHIEF ENGINEER [address] | | | | | [place] | [place] | | | | | [address] | [address] | | | | | [phone] | | | +--------+ + + + [...] | | | | | [place] [address] | | | | | | [phone] | | | | | | | | +--------+ + + + + | 04/13/ | Office | Cardiology | Julieta Michaelr | | | 2019 | Visit | | MD Marcelino [address] | | | | | | [address] [place] | | | | | | [place] [address] | | | | | | [phone] | | | | | | | [...]
--- OUTSIDE RECORDS SUMMARY | ~2020-03-14 | XMS | Encounter Summary ---
Demographics + + + | Address | [address] | | | [place] [address] | + + + | Home Phone [...] Team Providers + +------+ + | Care Press Hand Name | Role | Phone | [...] | +--------+ + + + + | 11/26/ | Home Care | [facility] [place] | García Walker, PT | PT SECONDARY EVAL | | 2020 | Visit | [place] [address] | [address] [place] | | | | | [place] | [place] [address] | | | | | [address] | [phone] | | | | | [phone] | | | +--------+ + + + [...] + + + | Blood Pressure | 132/60 | 11/26/2019 10:13 AM | | | | | PST | | + + + + + | Pulse | - | - | | + + + + + | Temperature | 37.1 C (98.7 F) | 11/26/2019 10:13 AM | | | | | PST | | + + + + + | Respiratory Rate | - | - | | + + + + + | Oxygen Saturation | 94% | 11/26/2019 10:13 AM | on 3L | | | | PST | | [...] [place] | | | | | | [address] | | | | | | | | +--------+ + + + + | 04/11/ | Appointment | Radiology | Shawn Michael | | 2019 | | | MD Marcelino [address] | | | | | | [address] | | | | | | [place] [address] | | | | | | [phone] | | | | | | | | +--------+ + + + + | 04/13/ | Office | Cardiology | Shawn Michael | | | 2020 | Visit | | MD Marcelino [address] | | | | | | [address] [place] | | | | | | [place] [address] | | | | | | [phone] | | | | | | | [...]
--- OUTSIDE RECORDS SUMMARY | ~2020-03-14 | XMS | Encounter Summary ---
Demographics + + + | Address | [address] | | | [place] [address] | + + + | Home Phone [...] Organization | [facility] | | | [...] Team Providers + +------+ + | Care Controls Designer Name | Role | Phone | [...] [place] | | | | | | [address] | | | | | | [phone] | | | +--------+ + + + [...] [place] | | | | | | [id number] | | | | | | | | +--------+ + + + + | 04/11/ | Appointment | Radiology | Shawn Michael | | | 2019 | | | MD Marcelino [address] | | | | | | [address] | | | | | | [place] [address] | | | | | | [phone] | | | | | | | | +--------+ + + + + | 04/13/ | Office | Cardiology | Shawn Michael | | | 2020 | Visit | | MD Marcelino [address] | | | | | | [address] | | | | | | [place] [address] | | | | | | [phone] | | | | | | | [...]
--- OUTSIDE RECORDS SUMMARY | ~2020-03-14 | XMS | Encounter Summary ---
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
--- OUTSIDE RECORDS SUMMARY | ~2020-03-14 | XMS | Encounter Summary ---
Demographics + + + | Address | [address] | | | [place] [address] | + + + | Home Phone [...] Team Providers + +------+ + | Care Filler Mixer Name | Role | Phone | + [...] | +--------+ + + + + | 10/20/ | Home Care | [facility] [place] | Bernardo Souza | CASE COMMUNICATION | | 2020 | Visit | [place] [address] | [address] | | | | | ST [place] | | | | | | [address] | | | | | | [phone] | | | +--------+ + + + [...] | | | | | [place] [address] | | | | | | [phone] | | | | | | | | +--------+ + + + + | 04/13/ | Office | Cardiology | Shawn Michael | | | 2019 | Visit | | MD Marcelino [address] | | | | | | [address] | | | | | | [place] [address] | | | | | | [phone] | | | | | | | [...]
--- OUTSIDE RECORDS SUMMARY | ~2020-03-14 | XMS | Encounter Summary ---
Demographics + + + | Address | [address] | | | [place] [address] | + + + | Home Phone [...] Team Providers + +------+ + | Care Kiss Mixer Name | Role | Phone | [...] | 09/10/ | Home Care | [facility] [place] | Autumn Hart RN | SN REPEAT VISIT | | 2018 | Visit | [place] [address] | | | | | | ST [place] | | | | | | [address] | | | | | | [phone] | | | +--------+ + + + [...] + | Blood Pressure | 118/56 | 09/10/2019 9:21 AM | | | | | PST | | + + + + + | Pulse | 96 | 09/10/2019 9:21 AM | | | | | PST | | + + + + + | Temperature | 36.4 C (97.6 F) | 09/10/2019 9:21 AM | | | | | PST | | + + + + + | Respiratory Rate | 29 | 09/10/2019 9:21 AM | | | | | PST | | + + + + + | Oxygen Saturation | 97% | 09/10/2019 9:21 AM | | | | | PST [...] | | | | | [place] [address] | | | | | | [phone] | | | | | | | | +--------+ + + + + | 04/13/ | Office | Cardiology | Shawn Michael | | | 2019 | Visit | | MD Marcelino [address] | | | | | | [address] [place] | | | | | | [place] [address] | | | | | | [phone] | | | | | | | [...] - REPEAT VISIT | | Discipline - Shelter | + + + + +--------+--------+ + [...] 2018 | | | interventio | | Shelter | infusion. | | | | ns | | | | | | | scheduled/d | | | | | | | ocumented | | | | | | | in this | | | | | | | visit | + + +--------+--------+ + + | Central/Midline IV | Central/Midline IV | | | 1 goal | 4 goal | | Disciplines: | | | Active | linked to | interventio | | Shelter | | 019 | | scheduled/d | ns | | | | | | ocumented | scheduled/d | | | | | | interventio | ocumented | | | | | | n | in this | | | | | | | visit | + + +--------+--------+ + + | HH Aide Need | HEAD MACHINE FEEDER services | | | - | 1 problem | | Disciplines: | needed | | Active | | | | Shelter, | | 019 | | | interventio | | Home Health Aide | | | | | n | [...] 2019 | | | interventio | | Shelter | | | | | n | [...] Active | linked to | | | Shelter | | 2019 | | scheduled/d | [...] | linked to | interventio | | Shelter | | 2019 | | scheduled/d | [...] | | scheduled/d | ns | | Shelter | | | | ocumented | scheduled/d [...] | | scheduled/d | n | | Shelter | | | | ocumented | scheduled/d [...] 08/28/ | Active | | | | Shelter | | 2019 | | | interventio [...] | | | Discharge Plan | | 2019 | | | interventio | | Disciplines: | | | | | n | | Shelter, | | | | | scheduled/d | | Physical Therapy, | | | | | ocumented | | Occupational | | | | | in this | | Therapy, Case | | | | | visit | | Manager Oncology, Physical | | | | | | | Gleason Gear Generator | | | | | | + + +--------+--------+ + + | Respiratory Status | Respiratory Status | | | 1 goal | 1 goal | | Disciplines: | DIAGNOSIS COPD, | 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 Central | | | | | | [...] | | | | as presented in [facility] | | | | | [...] Problem: Bleeding | | | The patient instructed | | report to RN/MD | Precautions | Comple | | in signs and symptoms | | Description: | | yoel | | of complications and | | Instruct pt/CG | | | | when to report to RN/MD | | regarding GI | | | | . The patient and/or | | distress and provide | | | | caregiver verbalized | | [facility] GI teaching | | | | understanding of signs | | handout. | | | | and symptoms and when to | | | | | | report to RN/MD as | | | | | | instructed:Yes. | + + +--------+--------+ + | Central/Midline [...] | | Instructed the patient | | administration of IV | Central/Midline | Comple | | and caregiver in | | solutions/meds per | IVGoal: HH SN IV | yoel | | administration [...] | | | | | administration of | | solution(s)/medicati | | | | Ertapenem Yes | | on(s). | | | | | + + +--------+--------+ + | Instruct in care | Problem: | | | Thepatient and | | and flushing of | Central/Midline | Comple | | caregiver was able to | | central line/IV | IVGoal: SN IV | oyel | | verbalize and | | Description: | CENTRAL LINE | | | demonstrate care and | | Instruct patient | | | | flushing of central | | and/or caregiver in | | | | line/IV: Yes | | care and flushing of | [...] procedures | CENTRAL LINE | | | infection:rednees | | Description: | | | | increased pain., | | Instruct patient | | | | infection prevention and | | and/or caregiver in | | | | when to notify HH | | signs and symptoms | | | | RN/MD. Patient and/or | | of infection and | | | | caregiver able to | | emergency procedures | | | | verbalize understanding | | related to IV | | | | of and demonstrate | | therapy and when to | | | | procedures related to IV | | notify skilled nurse | | | | therapy as instructed: | | or physician. | | | | Yes | + + +--------+--------+ + | HEAD MACHINE FEEDER supervisory | Problem: Aide | | | Supervisory visit of | | visit | Need | Comple | | HEAD MACHINE FEEDER performed. See HEAD MACHINE FEEDER | | | | yoel | | Supervisory Visit | | | | | | Documentation for | | | | | | assessment. [...] | | | | | | to [facility] for | | | | | | [...] Comple | | medication | | Description: | ManagementGoal: HH | yoel | | administration, purpose, | | Instruct | SN MEDICATION | | | dosages, preparation, | | patient/caregiver in | MANAGEMENT | | | scheduling, side | | pain medication | | | | effects, food/drug | | administration for | | | | interactions, and | | optimal | | | | potential complications. | | results.Pre-medicate | | | | Current regimen and | | for dressing | | | | compliance reviewed with | | changes PRN. RN to | | | | patient.The patient | | leave updated | | | | and/or caregiver | | medication list in | | | | verbalized understanding | | pt's home. | | | | of ABX, Asa | | | | | | medication(s) as | | | | | | instructed: Yes | + + +--------+--------+ + | Skilled assessment | Problem: SN | | | | | medications | Medication | Comple | | | | Description: RN to | ManagementGoal: | yoel | | | | reconcile [...] | | | | | | (possible MEDICAL RECORD ASSISTANT | | | | | | referral). [...] | | | | | | IS [place] AND UNABLE | | | | | [...] + | Instruct in fluid | Problem: HH SN | | | Instructed patient in | | intake Description: | Urinary | Comple | | fluid intake of 8 to10 | | Instruct patient | EliminationGoal: HH | yoel | | glass per day. The | | and/or caregiver in | SN URINARY | | | patient and/or caregiver | | fluid intake of 8-10 | ELIMINATION | | | verbalized | | glasses per day as | | | | understanding of fluid | | tolerated and | | | | intake instruction: Yes | | allowed. | | | | | + + [...] | | | | | and provide [facility] | | | | | | [...] provide | | | | | | [facility] teaching | | | | | | [...] + + +--------+--------+ + | HH Assess Lower | Problem: Wound | | | | | Extremities for Skin | ManagementGoal: HH | Comple | | | | Integrity | SN WOUND MANAGEMENT | yoel | | | | Description: | | | | | | Assess lower | | | | | | extremities for | | | | | | sensation lesions, | | | | | | skin integrity, and | | | | | | instruct | | | | | | patient/caregiver in | | | | | | proper foot care. | | | | | + [...] | Description: Wound | ManagementGoal: HH | Comple | | left and calf performed | | Type: skin tear | SN WOUND MANAGEMENT | yoel | | by SN. Old dressing | | Location: LLE wound | | | | removed. Well tolerated | | care: Cleanse with | | | | by patient.. Site | | Normal saline, apply | | | | aseptic cleanser. Patted | | nonadherent gauze, | | | | dry. Applied dry, fluff | | cover with kerlex, | | | | and telfa. Secured with | | and secure with | | | | paper tape. See Wound | | coban. Frequency:1-2 | | | | Assessment form for | | X week PRN | | | | measurements and status | | | | | | of wound. | + + +--------+--------+ + documented in this encounter"
--- OUTSIDE RECORDS SUMMARY | ~2020-03-14 | XMS | Encounter Summary ---
Demographics + + + | Address | [address] | | | [place] [address] | + + + | Home Phone [...] Team Providers + +------+ + | Care Speech Therapist Name | Role | Phone | + [...] | 10/18/ | Home Care | [facility] [place] | Bernardo Souza | OT REPEAT VISIT | | 2019 | Visit | [place] [address] | M, DANN | | | | | ST [place] | | | | | | [address] | | | | | | [phone] | | | +--------+ + + + [...] + + + | Blood Pressure | 118/80 | 10/18/2019 3:20 PM | | | | | PST | | + + + + + | Pulse | 107 | 10/18/2019 3:20 PM | | | | | PST | | + + + + + | Temperature | 36.8 C (98.2 F) | 10/18/2019 3:20 PM | | | | | PST | | + + + + + | Respiratory Rate | - | - | | + + + + + | Oxygen Saturation | 95% | 10/18/2019 3:20 PM | | | | | PST [...] | 2019 | Visit | | [address] | | | | | | [place] [...] | | | | | [place] [address] | | | | | | [phone] | | | | | | | | +--------+ + + + + | 04/13/ | Office | Cardiology | Julieta Michaelr | | | 2019 | Visit | | MD Marcelino [address] | | | | | | [address] [place] | | | | | | [place] [address] | | | | | | [phone] | | | | | | | [...]
--- OUTSIDE RECORDS SUMMARY | ~2020-03-14 | XMS | Encounter Summary ---
Demographics + + + | Address | [address] | | | [place] [address] | + + + | Home Phone [...] + + + | Author | [facility] | | | and [place] | + + + | Organization | [facility] | | [...] Providers + +------+ + | Care Biological Science Technician Name | Role | Phone | [...] | | [address] [place] | [facility] [place] [address] | | | | | [place] [address] | | | | | | [phone] | | | +--------+ + + + [...] | | 2019 | Visit | | PUNCH PRESS SETTER [address] | | | | | | [place] | | | | | | [address] | | | | | | | | +--------+ + + + + | 04/11/ | Appointment | Radiology | Shawn Michael | | | 2019 | | | MD [address] | | | | | | [address] [place] | | | | | | [place], [place] [address] | | | | | | [phone] | | | | | | | | +--------+ + + + + | 04/13/ | Office | Cardiology | Shawn Michael | | 2019 | Visit | | MD [address] | | | | | | [address] [place] | | | | | | [place] [address] | | | | | | [phone] | | | | | | | [...]
--- OUTSIDE RECORDS SUMMARY | ~2020-03-14 | XMS | Encounter Summary ---
Demographics + + + | Address | [address] | | | [place] [address] | + + + | Home Phone [...] | [facility] | | | and [place] | + [...] Team Providers + +------+ + | Care Blindmaker Name | Role | Phone | + [...] + + | 09/06/ | Telephone | [facility] | Nikolay, | Other | | 2019 | | MEDICINE [address] [place] [address] | MD Candido | | | | | [facility] | [address] [place] [address] | | | | | [place] [address] | [place] [address] | | | | | [phone] | [phone] | | | | | | | [...] | | 2019 | Visit | | MANAGER SOFTWARE [address] | | | | | | [place] | | | | | | [address] | | | | | | | | +--------+ + + + + | 04/11/ | Appointment | Radiology | Shawn Michael | | | 2019 | | | MD [address] | | | | | | [address] [place] | | | | | | [place] [address] | | | | | | [phone] | | | | | | | | +--------+ + + + + | 04/13/ | Office | Cardiology | Shawn Michael | | 2019 | Visit | | MD [address] | | | | | | [address] [place] | | | | | | [place] [address] | | | | | | [phone] | | | | | | | [...]
--- OUTSIDE RECORDS SUMMARY | ~2020-03-14 | XMS | Encounter Summary ---
Demographics + + + | Address | [address] | | | [place] [address] | + + + | Home Phone | | + + + | Preferred Language | Unknown | + + + | Marital Status | | + + + | Restoration Affiliation | Unknown | + + + | Race | Unknown | + + + | Ethnic Group | Unknown | + + + Author + + + | Author | [facility] | | | and [place] | + + + | Organization | [facility] | | [...] Providers + +------+ + | Care Head Counselor Name | Role | Phone | + +------+ + | Candido Link | PCP | | | MD | | | + +------+ + Reason for Visit + + + | Reason | Comments | + + + | Left Without Being | rescheduled appointment | | Seen | | + + + Evaluate & [...] | | | | r emphysema | Candido | ST [place] | | | | | ([facility] MD [address] | [place] | | | | | | [address] [place] | [address] Phone: | | | | | | [place], | [phone] | | | | | | [place] | Fax: | | | | | | [address] | [phone] | | | | | | Phone: | | | | | | | [phone] | | | | | | | Fax: | | | | | | | [phone] | | + + + + + + + Encounter Details +--------+---------+ + + + | Date | Type | Department | Care Team | Description | +--------+---------+ + + + | 08/04/ | Office | [facility] | Lina Correa | Patient left without | | 2019 | Visit | PULMONARY [address] | MD Jan [address] | being seen (Primary | | | | [place], | [address] [place] | Dx) | | | | [place] [address] | [place] [address] | | | | | [phone] | [phone] | | | | | | | [...] documented as of this encounter Progress Notes Lianet Barrera Health Information Systems Technician - 08/04/2019 1:15 PM PDTPatient left without being se en. Appointment rescheduled. documented in this encounter Plan of Treatment [...] | | | | | [place] [address] | | | | | | [phone] | | | | | | | | +--------+ + + + + | 04/13/ | Office | Cardiology | Shawn Michael | | | 2019 | Visit | | MD Marcelino [address] | | | | | | [address] [place] | | | | | | [place] [address] | | | | | | [phone] | | | | | | | | +--------+ + + + + documented as of this encounter Visit Diagnoses + + | Diagnosis | + + | Patient left without being seen - Primary Surgical or other procedure not carried out | | because of patient's decision | + + documented in this encounter Additional Health Concerns + + + + | Infection | Noted Time | Resolved Time | + + + + | Methicillin-resistant Staphylococcus aureus | 06/08/2019 9:39 AM | | | | PDT | | + + + + documented as of this encounter"
--- OUTSIDE RECORDS SUMMARY | ~2020-03-14 | XMS | Encounter Summary ---
Demographics + + + | Address | [address] | | | [place] [address] | + + + | Home Phone [...] Team Providers + +------+ + | Care Office System Analyst Name | Role | Phone | [...] + + | 07/06/ | Emergency | [facility] | Corbin Hastings MD | Dyspnea, unspecified | | 2019 | | [facility] | [address] | type (Primary Dx) | | | | CENTER [address] | [place] | | | | | [place] | [address] | | | | | [address] | | | | | | [phone] | | | +--------+ + + + [...] [place] | | | | | | [address] | | | | | | | | +--------+ + + + + | 04/11/ | Appointment | Radiology | Shawn Michael | | | 2019 | | | MD [address] | | | | | | [address] | | | | | | [place] [address] | | | | | | [phone] | | | | | | | | +--------+ + + + + | 04/13/ | Office | Cardiology | Shawn Michael | | 2019 | Visit | | MD [address] | | | | | | [address] [place] | | | | | | [place] [address] | | | | | | [phone] | | | | | | | [...] - 1.030 | [facility] | | | [place], | | | [facility] | | [...] | [address] | [place], [place] | [phone] | | [facility] | | [address] | | | - LABORATORY | | [...] | | | | LEONIDAS CALVO MD ([id number]) | | | | | | on [...] + | [facility] | [address] | [place] | [phone] | | [facility] | | [address] | | | - LABORATORY | | [...] [facility] | | | | | | [facility] | | | | | | [...] | + + + + + | [facility] | [address] | [place] | [phone] | | [facility] | | [address] | | | - [...] | | | | | | [employer] | | | | | [...] [address] | [place] | [phone] | | [facility] | | [address] | | | - LABORATORY | | [...] | 0.74 | 0.55 - 1.02 | [facility] | | | | | mg/dL [...] | | MEDICAL | | | | mL/min/[id number] than | | CENTER - | | [...] [address] | [place] | [phone] | | [facility] | | [address] | | | - LABORATORY | | [...] + | [facility] | [address] | [place] | [phone] | | [facility] | | [address] | | | - LABORATORY | | [...]
--- OUTSIDE RECORDS SUMMARY | ~2020-03-14 | XMS | Encounter Summary ---
Demographics + + + | Address | [address] | | | [place] [address] | + + + | Home Phone [...] Team Providers + +------+ + | Care Repairer Controller Tester Name | Role | Phone | [...] + + | 03/03/ | Telephone | [facility] | Janel, | [facility] | | 2020 | | [facility] | Brittany Schulz RN | | | | | [address] | | | | | | [address] [place] | | | | | | [place] [address] | | | | | | [phone] | | | +--------+ + + + [...] | 2020 | Visit | | PRAB[address]J[place] [address] | | | | | | [place] | | | | | | [address] | | | | | | | | +--------+ + + + + | 04/11/ | Appointment | Radiology | Shawn Michael | | | 2019 | | | MD [address] | | | | | | [address] [place] | | | | | | [place] [address] | | | | | | [phone] | | | | | | | | +--------+ + + + + | 04/13/ | Office | Cardiology | Shawn Michael | | | 2019 | Visit | | MD [address] | | | | | | [address] [place] | | | | | | [place] [address] | | | | | | [phone] | | | | | | | [...]
--- OUTSIDE RECORDS SUMMARY | ~2020-03-14 | XMS | Encounter Summary ---
Demographics + + + | Address | [address] | | | [place] [address] | + + + | Home Phone [...] Providers + +------+ + | Care Research Chef Name | Role | Phone | [...] 06/21/ | Home Care | [facility] [place] | Sam Quintanilla, | PT REPEAT VISIT | | 2019 | Visit | [place] [address] | REHABILITATION LIAISON [address] | | | | | [place] | [place] | | | | | [address] | [address] | | | | | [phone] | | | +--------+ + + + [...] + +---------+ + + | Pulse | 97 | 06/21/2019 10:08 AM | | | | | PDT | | + +---------+ + + | Temperature | - | - | | + +---------+ + + | Respiratory Rate | - | - | | + +---------+ + + | Oxygen Saturation | 95% | 06/21/2019 10:08 AM | on 3 lit | | [...] | | 2019 | Visit | | MUSIC DIRECTOR [address] | | | | | | [place] | | | | | | [address] | | | | | | | | +--------+ + + + + | 04/11/ | Appointment | Radiology | Shawn Michael | | | 2019 | | | MD [address] | | | | | | [address] [place] | | | | | | [place] [address] | | | | | | [phone] | | | | | | | | +--------+ + + + + | 04/13/ | Office | Cardiology | Shawn Michael | | | 2019 | Visit | | MD [address] | | | | | | [address] [place] | | | | | | [place] [address] | | | | | | [phone] | | | | | | | [...] gait training using | | | | 2x40 1x25 feet on even | | LRAD no [...] | | | | | and hips. REHABILITATION LIAISON notes | | | | | | ongoing deficits: poor | | | | | | safety awareness with O2 | | | | | | cannular, pain that | | | | | | limited gait, that will | | | | | | continue to be addressed | | | | | | in future visits. | + + +--------+--------+ + | PT therapeutic | Problem: HH PT | | | REHABILITATION LIAISON performed | | exercise | IMPAIRED | Comple | | progressive resistance | | Description: | STRENGTHGoal: HH PT | yoel | | exercises in stance: | | Evaluate and | STRENGTH | | | ankle PF/DF, HS curls | | instruct the patient | | | | and hip ad/abd/flexion. | | and/or caregiver | | | | REHABILITATION LIAISON adjusted difficulty | | and provide home [...] | Problem: HH PT | | | REHABILITATION LIAISON instructed pt on | | training | [...] in | Problem: SHARED | | | REHABILITATION LIAISON educated pt on non | | Exercise/Mobility | PAINGoal: HH PAIN | Comple | | pharm pain management | | for Pain | | yoel | | techniques including | | Description: | | | | diaphragmatic breathing, | | Monitor pain and | | | | relaxation and | | instruct the patient | | | | visualization | | and/or caregiver | | | | activities, appropriate | | regarding the use of | | | | indications and dosage | | exercise and | | | | for heat and ice use, | | mobility for pain | | | | and mindfulness in | | management. | | | | relation to normal joint | | | | | | positioning and | | | | | | postures. pt | | | | | | demonstrates fair | | | | | | understanding, needs | | | | | | occasional prompts and | | | | | | cues for form. | + + +--------+--------+ + documented in this encounter"
--- OUTSIDE RECORDS SUMMARY | ~2020-03-14 | XMS | Encounter Summary ---
Demographics + + + | Address | [address] | | | [place] [address] | + + + | Home Phone | | + + + | Preferred Language | Unknown | + + + | Marital Status | | + + + | Shinto Affiliation | Unknown | + + + [...] Team Providers + +------+ + | Care Nursing Admin Name | Role | Phone | + [...] Visit | [facility] [address] | SILVERING APPLICATOR [address] | | | | | [place] | [place] | | | | | [address] | [address] | | | | | [phone] | | | +--------+ + + + [...] | | | | | [place] [address] | | | | | | [phone] | | | | | | | | +--------+ + + + + | 04/13/ | Office | Cardiology | Julieta Michaelr | | | 2019 | Visit | | MD Marcelino [address] | | | | | | [address] [place] | | | | | | [place] [address] | | | | | | [phone] | | | | | | | [...]
--- OUTSIDE RECORDS SUMMARY | ~2020-03-14 | XMS | Encounter Summary ---
Demographics + + + | Address | [address] | | | [place] [address] | + + + | Home Phone [...] Team Providers + +------+ + | Care Employee Services Manager Name | Role | Phone [...] 07/05/ | Home Care | [facility] [place] | Mihir | RT REPEAT VISIT | | 2018 | Visit | [place] [address] | Adrienne Leo [address] | | | | | [place] | | | | | | [address] | | | | | | [phone] | | | +--------+ + + + [...] + +---------+ + + | Pulse | 68 | 07/05/2019 10:00 AM | | | | | PDT | | + +---------+ + + | Temperature | - | - | | + +---------+ + + | Respiratory Rate | 16 | 07/05/2019 10:00 AM | | | | | PDT | | + +---------+ + + | Oxygen Saturation | 95% | 07/05/2019 10:00 AM | | | | | PDT [...] | | 2019 | Visit | | CONSOLIDATION ACCOUNTANT [address] | | | | | | [place] | | | | | | [address] | | | | | | | | +--------+ + + + + | 04/11/ | Appointment | Radiology | Shawn Michael | | | 2019 | | | MD [address] | | | | | | [address] [place] | | | | | | [place] [address] | | | | | | [phone] | | | | | | | | +--------+ + + + + | 04/13/ | Office | Cardiology | Shawn Michael | | | 2019 | Visit | | MD [address] | | | | | | [address] [place] | | | | | | [place], [place] [address] | | | | | | [phone] | | | | | | | [...]
--- OUTSIDE RECORDS SUMMARY | ~2020-03-14 | XMS | Encounter Summary ---
Demographics + + + | Address | [address] | | | [place] [address] | + + + | Home Phone [...] Team Providers + +------+ + | Care Benefits Coordinator Name | Role | Phone | [...] [place] | | | | | | [address] | | | | | | [phone] | | | +--------+ + + + [...] [place] | | | | | | [id number] | | | | | | | | +--------+ + + + + | 04/11/ | Appointment | Radiology | Shawn Michael | | | 2019 | | | MD [address] | | | | | | [address] | | | | | | [place] [address] | | | | | | [phone] | | | | | | | | +--------+ + + + + | 04/13/ | Office | Cardiology | Shawn Michael | | | 2020 | Visit | | MD Marcelino [address] | | | | | | [address] | | | | | | [place] [address] | | | | | | [phone] | | | | | | | [...]
--- OUTSIDE RECORDS SUMMARY | ~2020-03-14 | XMS | Encounter Summary ---
Demographics + + + | Address | [address] | | | [place] [address] | + + + | Home Phone [...] Team Providers + +------+ + | Care Fluxer Name | Role | Phone | + [...] 12/16/ | Home Care | [facility] | Sam Quintanilla, | PT REPEAT VISIT | | 2020 | Visit | [place] [address] | OPERATIONS MANAGER/COORDINATOR [address] | | | | | [place] | [place] | | | | | [address] | [address] | | | | | [phone] | | | +--------+ + + + [...] +---------+ + + | Blood Pressure | 120/80 | 12/17/2019 11:10 AM | | | | | PDT | | + +---------+ + + | Pulse | 85 | 12/17/2019 11:10 AM | | | | | PDT | | + +---------+ + + | Temperature | - | - | | + +---------+ + + | Respiratory Rate | - | - | | + +---------+ + + | Oxygen Saturation | 94% | 12/17/2019 11:10 AM | on 3 lit O2 | | | | PDT | | [...] | 2019 | Visit | | WOOD CARVING LATHE OPERATOR [address] | | | | | | [place] | | | | | | [address] | | | | | | | | +--------+ + + + + | 04/11/ | Appointment | Radiology | Shawn Michael | | | 2019 | | | MD [address] | | | | | | [address] [place] | | | | | | [place] [address] | | | | | | [phone] | | | | | | | | +--------+ + + + + | 04/13/ | Office | Cardiology | Shawn Michael | | | 2019 | Visit | | MD [address] | | | | | | [address] [place] | | | | | | [place] [address] | | | | | | [phone] | | | | | | | [...] 1 goal | | STRENGTH | | 11/26/ | Active | linked to | interventio | | Disciplines: | | 020 | | scheduled/d [...] | interventio | | Disciplines: | | 020 | | scheduled/d [...] | At risk for | | | 1 goal | 1 goal | | FOR PRESSURE ULCER | pressure ulcer | | Active | linked to | interventio | | Disciplines: | | 020 | | scheduled/d [...] STRENGTH | | | | | strength 4/5 or | | | | | | greater in 3 weeks. | | | | | | Outcomes: The | | | | | | patient's strength | | | | | | will improve so that | | | | | | they can perform | | | | | | gait and transfers | | | | | | with improved safety | | | | | | and independence. | | | | | + + +--------+-------+ + | HH PT TRANSFERS | HH PT IMPAIRED | | No | | | Description: The | TRANSFERS | | | | | patient will perform | | | | | | supervised | | | | | | transfers for all | | | | | | household surfaces | | | | | | using rolling walker | | | | | | in 3 weeks. | | | | | | Outcomes: The | | | | | | patient will be safe | | | | | | with supervised | | | | | | transfers from all | | | | | | typical ADL | | | | | | surfaces; min A for | | | | | | car transfers. | | | | | + + +--------+-------+ + | Wound pressure | HH SHARED AT RISK | | No | | | ulcer Description: | FOR PRESSURE ULCER | | | | | The patient and/or | | | | | | caregiver will | | | | | | verbalize | | | | | | understanding of | | | | | | techniques/strategie | | | | | | s to prevent | | | | | | pressure ulcers/skin | | | | | | breakdown. | | | | | + + [...] therapeutic | Problem: PT | | | | | exercise | IMPAIRED | Comple | | | | Description: | STRENGTHGoal: PT | yoel | | | | Evaluate and | STRENGTH | | | | | instruct the patient | | | | | | and/or caregiver | | | | | | and provide home | | | | | | exercise program to | | | | | | restore maximal | | | | | | functional strength. | | | | | + [...] + + +--------+--------+ + | Instruct in Skin | Problem: HH SHARED | | | | | Breakdown Prevention | AT RISK FOR PRESSURE | Comple | | | | Description: | ULCERGoal: Wound | yoel | | | | Instruct the patient | pressure ulcer | | | | | and/or caregiver in | | | | | | | | | | | | techniques/strategie | | | | | | s to prevent and/or | | | | | | reduce the risk of | | | | | | pressure ulcers and/ | | | | | | or skin breakdown. | | | | | + + [...]
--- OUTSIDE RECORDS SUMMARY | ~2020-03-14 | XMS | Encounter Summary ---
Demographics + + + | Address | [address] | | | [place] [address] | + + + | Home Phone [...] Team Providers + +------+ + | Care Golf Course Equipment Operator Name | Role | Phone | [...] [place], [place] | | | | | [place] | [address] | [address] | | | | | coronary | Phone: | Phone: | | | | | artery of | [phone] | [phone] | | | | | [place] heart | Fax: | Fax: | | | | | without | [phone] | [phone] | | | | | angina | [...] + + | 08/19/ | Hospital | [facility] | Edin Gentile, | Chest pain in adult | | 2019 - | Encounter | [facility] | [address] | (Primary Dx); Anemia | | | | [address] [place] | [place] | of chronic disease; | | 08/26/ | | [place] [address] | [address] [address] | Acute GI bleeding; | | 2019 | | [phone] | MD Pati [address] | Melena; | | | | | [address] [place] | 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 Name/Age/: Ángela [...] valve replacement), bioprosthetic Coronary artery disease involving [place] coronary artery of [place] heart without angina pectoris Resolved Hospital Problems [...] Please check in at 10:15. Contact information: [place] [address] Condition: stable Diet: general Less than 30 minutes were spent on discharge and coordination of post-hospital care. Electronically signed by: Sharon Robles MD, 08/26/2019 9:56 AM [facility] documented in this enco unter [...] Robles MD - 08/25/2019 11:42 AM PST [place], [place] HOSPITALIST PROGRESS NOTE Patient: Ángela Crowley : 1930: Age: 89 y.o. 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 Started on PPI drip here. EGD ([facility]) showed no significan t lesions or [...] mg Oral Nightly PRN, MR x 1 Sma Valladares MD metoprolol succinate (TOPROL-XL) ER tablet [...] 2.5L/min Sharon Robles MD 08/25/2019 11:42 AM [facility] Sharon Hector MD - 4:57 PM PST [facility] [place] HOSPITALIST PROGRESS NOTE Patient: Ángela Crowley : 1930: Age: 89 y.o. 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 Started on PPI drip here. EGD ([facility]) showed no significan t lesions or [...] Clostridioides difficle NAAT reflex to Tox Ag [[id number]] Collected: 08/22/19105 Order Status: Completed Lab Status: Final result Updated: 08/22/19353 Specimen: Stool Narrative: The following orders were created for panel order Clostridioides difficle NAAT reflex to T ox Ag. Procedure Abnormality Status --------- ------ Clostridioides difficile...[[id number]] Final result Please view results for these tests on the individual orders. Clostridioides difficile NAAT Reflex [[id number]] Collected: 08/22/19105 Order Status: Completed Lab Status: [...] 2.5L/min Sharon Robles MD 08/24/2019 4:58 PM [facility] HLeSam schmidt MD - 08/23/2019 8:06 PM PST [facility] Hospitalist Progress Note Ángela [...] reproducible with palpation, did not have an NM on admission -Held aspirin for black tarry [...] above. Sam Valladares MD 08/23/2019 8:06 PM [facility] am Valladares MD - 08/22/2019 7:45 AM PST [facility] Hospitalist Progress Note Ángela [...] General: Alert, no distress, thin, frail, appropriate, [place] Cardiovascular: Regular rate and rhythm Respiratory: Diminished [...] pH, Urine 6.0 5.0 - 8.0 Specific [place] 1.029 1.001 - 1.030 Protein, Urine Negative [...] above. Sam Valladares MD 08/22/2019 7:45 AM [facility] am Valladares MD - 08/21/2019 2:34 PM PST [facility]G Hospitalist Progress Note Ángela [...] She would like to return home to [place] when she is discharged Prophylaxis: SCD SUBJECTIVE: [...] pH, Urine 6.0 5.0 - 8.0 Specific [place] 1.029 1.001 - 1.030 Protein, Urine Negative [...] above. Sam Valladares MD 08/21/2019 2:46 PM [facility] eroxana, Sam Galarza MD - 08/20/2019 4:03 PM PST [facility] Hospitalist Progress Note Ángela [...] Crossmatch Result Value Ref Range Product Code C4921M50 UNIT # [id number] UNIT ABO A UNIT RH POS CROSSMATCH INTERP Compatible Unit Status Issued Blood Product Miguel OCHOA Blood Product Expiration Date and Time [id number] Product Blood Type Barcode 6200 Troponin I [...] inferolateral leads Confirmed by UMESH JOSEPH, LEONIDAS ([id number]) on 08/20/2019 6:47:02 AM Hemoglobin and Hematocrit [...] LVOT Mean Velocity 71.81 cm/s MV Deceleration [place] 489.87 cm/s2 MV Deceleration Time 274.63 msec MV E/A Ratio 0.8 MV Mean Velocity 106.99 cm/s MV Peak A-Wave 168.88 cm/s MV Peak E-Wave 134.53 cm/s AV Deceleration [place] 319.97 cm/s2 AV Deceleration Time 1,088.5 msec [...] above. Sam Valladares MD 08/20/2019 4:04 PM [facility] documented in this encounter Plan of Treatment +--------+ + + + + | Date | Type | Specialty | Care Team | Description | +--------+ + + + + | 03/23/ | Office | Anticoagulation | García Harris, | | 2019 | Visit | | [address] | | | | | | [place] | | | | | | [id number] | | | | | | | | +--------+ + + + + | 04/11/ | Appointment | Radiology | Shawn Michael | | 2019 | | | MD [address] | | | | | | [address] [place] | | | | | | [place] [address] | | | | | | [phone] | | | | | | | | +--------+ + + + + | 04/13/ | Office | Cardiology | Shawn Michael | | | 2019 | Visit | | MD [address] | | | | | | [address] [place] | | | | | | [place] [address] | | | | | | [phone] | | | | | | | [...] involving | | | | | | [place] coronary | | | | | | artery of [place] | | | | | | heart without angina | | | | | | pectoris S/p TAVR | | | | | | (transcatheter | | | | | | aortic valve | | | | | | replacement), | | | | | | bioprosthetic | | | | | | Panlobular emphysema | | | | | | ([facility]) Carly ernst | | | [...] + +--------+ + + + | *TERMED* OK UPPER GI | Routin | 08/20/2019 | [...] mL/min/1.73m2 | [facility] | | | [place] | RATE,ESTIMATED | | MEDICAL | | | | mL/min/1.45o6Nfub than | | CENTER - | | [...] + | [facility] | [address] | [place], [place] | [phone] | | [facility] | | [address] | | | - LABORATORY | | [...] ST. | [address] | [place], [place] | [phone] | | [facility] | | [address] | | | - LABORATORY | | [...] mL/min/1.73m2 | [facility] | | | [place] | RATE,ESTIMATED | | MEDICAL | | | | mL/min/1.47z2Hapl than | | CENTER - | | [...] 8.5 (L) | 8.7 - 10.4 | [facility] | | | | | mg/dL | [facility] | | | | | | MEDICAL [...] + | [facility] | [address] | [place] | [phone] | | [facility] | | [address] | | | - LABORATORY | | [...] [address] | [place] | [phone] | | [facility] | | [address] | | | - LABORATORY | | [...] | | | FILTRATION | mL/min/1.73m2 | [facility] | | | [place] | RATE,ESTIMATED | | MEDICAL | | | | mL/min/1.30c5Vxkv than | | CENTER - | | [...] 8.5 (L) | 8.7 - 10.4 | [facility] | | | | | mg/dL | [...] [address] | [place] | [phone] | | [facility] | | [address] | | | - LABORATORY | | [...] [facility] | | | | | | [facility] | | | | | | MEDICAL | | | | | | CENTER - | | | | | | LABORATORY | | + + + + + + | RBC | 3.21 (L) | 3.70 - 5.20 | [facility] | | | | | M/uL | [facility] | | [...] [address] | [place] | [phone] | | [facility] | | [address] | | | - LABORATORY | | [...] [address] | [place] | [phone] | | [facility] | | [address] | | | - LABORATORY | | [...] 13 | 9 - 23 mg/dL | [facility] | | | | | | [facility] | | | | | | MEDICAL | | | | | | CENTER - | | | | | | LABORATORY | | + + + + + + | Creatinine | 0.63 | 0.55 - 1.02 | [facility] | | | | | mg/dL | [facility] | | | | | | MEDICAL | | | | | | CENTER - | | | | | | LABORATORY | | + + + + + + | eGFR if not | >60Comment: GLOMERULAR | >=60 | [facility] | | | | FILTRATION | mL/min/1.73m2 | [facility] | | | [place] | RATE,ESTIMATED | | MEDICAL | | | | mL/min/1.04t3Ulxp than | | CENTER - | | [...] + | [facility] | [address] | [place] | [phone] | | [facility] | | [address] | | | - LABORATORY | | [...] [address] | [place] | [phone] | | [facility] | | [address] | | | - LABORATORY | | [...] [address] | [place], [place] | [phone] | | [facility] | | [address] | | | - LABORATORY | | [...] [address] | [place] | [phone] | | [facility] | | [address] | | | - [...] | 0.67 | 0.55 - 1.02 | [facility] | | | | | mg/dL | [facility] | | | | | | MEDICAL | | | | | | CENTER - | | | | | | LABORATORY | | + + + + + + | eGFR if not | >60Comment: GLOMERULAR | >=60 | [facility] | | | | FILTRATION | mL/min/1.73m2 | [facility] | | | [place] | RATE,ESTIMATED | | MEDICAL | | | | mL/min/1.23d4Hbiw than | | CENTER - | | [...] + | [facility] | [address] | [place] | [phone] | | [facility] | | [address] | | | - LABORATORY | | [...] [address] | [place] | [phone] | | [facility] | | [address] | | | - LABORATORY | | [...] - 1.030 | [facility] | | | [place], | | | [facility] | | [...] ST. | [address] | [place] | [phone] | | [facility] | | [address] | | | - LABORATORY | | [...] + | [facility] | [address] | [place] | [phone] | | [facility] | | [address] | | | - LABORATORY | | [...] | | | incubation. | | [facility] | | | | | | MEDICAL [...] | [address] | [place], [place] | [phone] | | [facility] | | [address] | | | - LABORATORY | | [...] [address] | [place] | [phone] | | [facility] | | [address] | | | - LABORATORY | | [...] 15 | 9 - 23 mg/dL | [facility] | | | | | | [facility] | | | | | | MEDICAL | | | | | | CENTER - | | | | | | LABORATORY | | + + + + + + | Creatinine | 0.76 | 0.55 - 1.02 | [facility] | | | | [...] mL/min/1.73m2 | [facility] | | | [place] | RATE,ESTIMATED | | MEDICAL | | | | mL/min/1.21k7Rlpz than | | CENTER - | | [...] [address] | [place] | [phone] | | [facility] | | [address] | | | - LABORATORY | | [...] [address] | [place] | [phone] | | [facility] | | [address] | | | - LABORATORY | | [...] + | [facility] | [address] | [place] | [phone] | | [facility] | | [address] | | | - LABORATORY | | [...] | | | | | | n [place] | | | | | + +---------+ [...] | | | | | | n [place] | | | | | + +---------+ [...] [address] | [place] | [phone] | | [facility] | | [address] | | | - LABORATORY | | [...] | [address] | [place] | [phone] | | [facility] | | [address] | | | - LABORATORY | | | | + + + + + EGD (08/20/2019 7:23 AM PST) + + | Specimen | + + | | + + + + ----+ | Narrative | Performed At | + + ----+ | [facility] | [facility] | | [facility] CenterologyPatient Name: Ángela Crowley | [employer]OVATION | | JoanneProcedure Date: 08/20/2019 7:23 AMMRN: [id number] | | | Number: [id number] of : 1930Note Status: | | | FinalizedAttending MD: JOHN BOUCHER , [facility]ENTERrocedure Type: | | | Upper GI endoscopyIndications: [...] | | 7:23 AMNumber of Addenda: 0 [facility] | | | - Advance diet as [...] likely necessary on a | | | terminal press operator basis, to match ongoing chronic bleeding. | | |JOHN BOUCHER MD | | |08/20/2019 7:58:49 AM | | |This report has been signed electronically. | | |Note Initiated On: 08/20/2019 7:23 AM | | |Number of Addenda: 0 | | | [facility] | | + + ----+ + +---------+ [...] | | | | LEONIDAS CALVO MD ([id number]) | | | | | | on [...] | | | | | | [employer] | | | | | [...] [address] | [place] | [phone] | | [facility] | | [address] | | | - LABORATORY | | [...] + | [facility] | [address] | [place] | [phone] | | [facility] | | [address] | | | - LABORATORY | | [...] | [address] | [place] | [phone] | | [facility] | | [address] | | | - LABORATORY | | [...] | | | FILTRATION | mL/min/1.73m2 | [facility] | | | [place] | RATE,ESTIMATED | | MEDICAL | | | | mL/min/1.55e0Qmbn than | | CENTER - | | [...] [address] | [place] | [phone] | | [facility] | | [address] | | | - LABORATORY | | [...] [address] | [place] | [phone] | | [facility] | | [address] | | | - LABORATORY | | [...] [address] | [place] | [phone] | | [facility] | | [address] | | | - LABORATORY | | [...] | | | | | | [employer] | | | | | [...] [address] | [place] | [phone] | | [facility] | | [address] | | | - LABORATORY | | | | + + + + + Red Blood Cells (PRBC) - Crossmatch (08/19/2019 6:15 PM PST) + + + + + + | Component | Value | Ref Range | Performed | Pathologist | | | | | At | Signature | + + + + + + | Product | [id number] | | [facility] | | | Code | | | [facility] | | | | | | MEDICAL | | | | | | CENTER - | | | | | | BLOOD BANK | | + + + + + + | UNIT # | [id number] | | [facility] | | | | [...] + + + + | Blood | [id number] | | [facility] | | | Product [...] + | [facility] | [address] | [place] | | | [facility] | | [address] | | | - BLOOD BANK | [...] + | [facility] | [address] | [place] | [phone] | | [facility] | | [address] | | | - LABORATORY | | [...] ST. | [address] | [place], [place] | [phone] | | [facility] | | [address] | | | - LABORATORY | | [...] [address] | [place] | [phone] | | [facility] | | [address] | | | - LABORATORY | | [...] [address] | [place] | [phone] | | [facility] | | [address] | | | - LABORATORY | | [...] [address] | [place] | [phone] | | [facility] | | [address] | | | - LABORATORY | | [...] + | [facility] | [address] | [place] | | | [facility] | | [address] | | | - BLOOD BANK | [...] + | [facility] | [address] | [place] | [phone] | | [facility] | | [address] | | | - LABORATORY | | [...] | | | | | | [employer] | | | | | [...] [address] | [place] | [phone] | | [facility] | | [address] | | | - [...] | 0.76 | 0.55 - 1.02 | [facility] | | | | | mg/dL | [facility] | | | | | | MEDICAL | | | | | | CENTER - | | | | | | LABORATORY | | + + + + + + | eGFR if not | >60Comment: GLOMERULAR | >=60 | [facility] | | | | FILTRATION | mL/min/1.73m2 | [facility] | | | [place] | RATE,ESTIMATED | | MEDICAL | | | | mL/min/1.62x9Znff than | | CENTER - | | [...] | [address] | [place], [place] | [phone] | | [facility] | | [address] | | | - LABORATORY | | [...] + | [facility] | [address] | [place] | [phone] | | [facility] | | [address] | | | - LABORATORY | | [...] | | | | LEONIDAS CALVO MD ([id number]) | | | | | | on [...] + | Coronary artery disease involving [place] coronary artery of [place] heart without | | angina pectoris | [...] Shortness of Breath, | | | Starting [facility] 08/25/19 at 1350 | | + +---+ [...] | | | | | Breath, Starting [facility] 08/19/19 at | | | | | [...] | | | 324 mg, Oral, ONCE, [facility] 08/19/19 | | 19 2:09 | | [...] | | | | | Intravenous, ONCE, [facility] 08/19/19 | | PM PST | | [...] | | | | | Oral, ONCE, [facility] 08/19/19 at 1655, | | PM PST [...]
--- OUTSIDE RECORDS SUMMARY | ~2020-03-14 | XMS | Encounter Summary ---
Demographics + + + | Address | [address] | | | [place] [address] | + + + | Home Phone [...] Team Providers + +------+ + | Care Mellowing Machine Operator Name | Role | Phone [...] [place] | | | | | | [address] | | | | | | [phone] | | | +--------+ + + + [...] [place] | | | | | | [address] | | | | | | | | +--------+ + + + + | 04/11/ | Appointment | Radiology | Shawn Michael | | 2019 | | | MD Marcelino [address] | | | | | | [address] | | | | | | [place] [address] | | | | | | [phone] | | | | | | | | +--------+ + + + + | 04/13/ | Office | Cardiology | Julieta Michaelr | | | 2019 | Visit | | MD Marcelino [address] | | | | | | [address] [place] | | | | | | [place] [address] | | | | | | [phone] | | | | | | | [...]
--- OUTSIDE RECORDS SUMMARY | ~2020-03-14 | XMS | Encounter Summary ---
Demographics + + + | Address | [address] | | | [place] [address] | + + + | Home Phone [...] Team Providers + +------+ + | Care Cloth Finishing Range Operator Name | Role | Phone | [...] [place] | | | | | | [address] | | | | | | [phone] | | | +--------+ + + + [...] [place] | | | | | | [address] | | | | | | | | +--------+ + + + + | 04/11/ | Appointment | Radiology | Shawn Michael | | | 2019 | | | MD Marcelino [address] | | | | | | [address] | | | | | | [place] [address] | | | | | | [phone] | | | | | | | | +--------+ + + + + | 04/13/ | Office | Cardiology | Zacharynnamdi Shawn | | | 2019 | Visit | | MD Marcelino [address] | | | | | | [address] [place] | | | | | | [place] [address] | | | | | | [phone] | | | | | | | [...]
--- OUTSIDE RECORDS SUMMARY | ~2020-03-14 | XMS | Encounter Summary ---
Demographics + + + | Address | [address] | | | [place] [address] | + + + | Home Phone [...] Team Providers + +------+ + | Care Book Mender Name | Role | Phone | + [...] Visit | [place] [address] | TELETYPE INSTALLER [address] | | | | | [place] | [place] | | | | | [address] | [address] | | | | | [phone] | | | +--------+ + + + [...] | | 2019 | Visit | | WHEY DEPARTMENT OPERATOR [address] | | | | | | [place] | | | | | | [address] | | | | | | | | +--------+ + + + + | 04/11/ | Appointment | Radiology | Shawn Michael | | | 2019 | | | MD [address] | | | | | | [address] [place] | | | | | | [place] [address] | | | | | | [phone] | | | | | | | | +--------+ + + + + | 04/13/ | Office | Cardiology | Shawn Michael | | | 2019 | Visit | | MD [address] | | | | | | [address] [place] | | | | | | [place] [address] | | | | | | [phone] | | | | | | | [...] | Problem: HH PT | | | TELETYPE INSTALLER instructed pt is | | Description: | [...] | | | | | and hips. TELETYPE INSTALLER notes | | | | | | [...] | Problem: HH PT | | | TELETYPE INSTALLER performed | | exercise | IMPAIRED | Comple | | progressive resistance | | Description: | STRENGTHGoal: HH PT | yoel | | exercises in stance: | | Evaluate and | STRENGTH | | | ankle PF/DF, HS curls | | instruct the patient | | | | and hip ad/abd/flexion. | | and/or caregiver | | | | TELETYPE INSTALLER adjusted difficulty | | and provide home [...] | Problem: HH PT | | | TELETYPE INSTALLER instructed pt on | | training | [...]
--- OUTSIDE RECORDS SUMMARY | ~2020-03-14 | XMS | Encounter Summary ---
Demographics + + + | Address | [address] | | | [place] [address] | + + + | Home Phone [...] Team Providers + +------+ + | Care Squirrel Worker Name | Role | Phone | [...] + | 01/30/ | Refill | [facility] | Nikolay, | Medication Refill | | 2019 | | MEDICINE [address] | MD Candido | | | | | [facility] | [address] [place] [address] | | | | | [place] [address] | [place] [address] | | | | | [phone] | [phone] | | | | | | | [...] | | 2019 | Visit | | PRINT DESIGNER [address] | | | | | | [place] | | | | | | [address] | | | | | | | | +--------+ + + + + | 04/11/ | Appointment | Radiology | Shawn Michael | | | 2019 | | | MD [address] | | | | | | [address] [place] | | | | | | [place] [address] | | | | | | [phone] | | | | | | | | +--------+ + + + + | 04/13/ | Office | Cardiology | Shawn Michael | | | 2019 | Visit | | MD [address] | | | | | | [address] [place] | | | | | | [place], [place] [address] | | | | | | [phone] | | | | | | | | +--------+ + + + + documented as of this encounter Visit Diagnoses + + | Diagnosis | + + | Generalized osteoarthritis Generalized osteoarthrosis, unspecified site | + + | [facility] prescription opiate use | + + documented [...]
--- OUTSIDE RECORDS SUMMARY | ~2020-03-14 | XMS | Encounter Summary ---
Demographics + + + | Address | [address] | | | [place] [address] | + + + | Home Phone [...] Providers + +------+ + | Care Air Cargo Ground Operations Supervisor Name | Role | Phone | [...] | +--------+ + + + + | 07/23/ | Home Care | [facility] [place] | Iris, | TRS W/OUT D/C | | 2019 | Visit | [place] [address] | Jenise Leo RN | ([place]) | | | | ST [place] | | | | | | [address] | | | | | | [phone] | | | +--------+ + + + [...] [place] | | | | | | [address] | | | | | | | | +--------+ + + + + | 04/11/ | Appointment | Radiology | Shawn Michael | | 2019 | | | MD Marcelino [address] | | | | | | [address] | | | | | | [place] [address] | | | | | | [phone] | | | | | | | | +--------+ + + + + | 04/13/ | Office | Cardiology | Shawn Michael | | | 2019 | Visit | | MD Marcelino [address] | | | | | | [address] [place] | | | | | | [place] [address] | | | | | | [phone] | | | | | | | [...] 06/13/20 | Active | | | | Usp | | 19 | | | interventio [...] 19 | | | interventio | | Usp | | | | | n | | | | | | | scheduled/d | | | | | | | ocumented | | | | | | | in this | | | | | | | visit | + + +--------+--------+-------+ + | Respiratory Status | COPD & CHF | | | - | 1 problem | | Disciplines: | | 06/13/20 | Active | | | | Usp | | 19 | | | interventio [...] HH SHARED | | | | | pain | PAIN | [facility] | | | | | | led | | | + + +--------+--------+ + | Assess medications | Problem: HH SN | | | | | used by patient | Medication | [facility] | | | | | Management | led | | | + + +--------+--------+ + | Assess respiratory | Problem: Respiratory | | | | | status | Status | [facility] | | | | | | led | | | + + +--------+--------+ + documented in this encounter"
--- OUTSIDE RECORDS SUMMARY | ~2020-03-14 | XMS | Encounter Summary ---
Demographics + + + | Address | [address] | | | [place] [address] | + + + | Home Phone [...] Team Providers + +------+ + | Care Pen Rider Name | Role | Phone | + [...] [facility] | | | | | | [address] | | | | | | [phone] | | | +--------+ + + + [...] | | | | | [place] [address] | | | | | | [phone] | | | | | | | | +--------+ + + + + | 04/13/ | Office | Cardiology | Shawn Michael | | | 2019 | Visit | | MD Marcelino [address] | | | | | [address] | | | | | | [place] [address] | | | | | | [phone] | | | | | | | [...]
--- OUTSIDE RECORDS SUMMARY | ~2020-03-14 | XMS | Encounter Summary ---
Demographics + + + | Address | [address] | | | [place] [address] | + + + | Home Phone [...] Team Providers + +------+ + | Care Heater Mechanic Name | Role | Phone | [...] | +--------+ + + + + | 10/25/ | Home Care | [facility] [place] | Bernardo Souza | OT DISCHARGE ([place]) | | 2020 | Visit | [place] [address] | M, OT | | | | | [place] | | | | | | [address] | | | | | | [phone] | | | +--------+ + + + [...] + | Blood Pressure | 128/74 | 10/25/2019 3:28 PM | | | | | PST | | + + + + + | Pulse | 85 | 10/25/2019 3:28 PM | | | | | PST | | + + + + + | Temperature | 36.3 C (97.3 F) | 10/25/2019 3:28 PM | | | | | PST | | + + + + + | Respiratory Rate | - | - | | + + + + + | Oxygen Saturation | 95% | 10/25/2019 3:28 PM | | | | | PST [...] [place] | | | | | | [address] | | | | | | | | +--------+ + + + + | 04/11/ | Appointment | Radiology | Shawn Michael | | 2019 | | | MD Marcelino [address] | | | | | | [address] | | | | | | [place] [address] | | | | | | [phone] | | | | | | | | +--------+ + + + + | 04/13/ | Office | Cardiology | Shawn Michael | | | 2019 | Visit | | MD Marcelino [address] | | | | | | [address] [place] | | | | | | [place] [address] | | | | | | [phone] | | | | | | | [...] + | Visit Type - OT - [place] D/C | | Discipline - Occupational Therapy [...] | | | Occupational Therapy | | 2018 | | scheduled/d | | | | | | | ocumented | | | | | | | interventio | | | | | | | n | | + + +--------+--------+ + + | HH OT IMPAIRED | Muscle | | | 1 goal | | | STRENGTH | re-education | 09/15/ | Active | linked to | | | Disciplines: | | 2019 | | scheduled/d | | | Occupational Therapy | | | | ocumented | | | | | | | interventio | | | | | | | n | | + + +--------+--------+ + + | OT Adaptive | Adaptive equipment | | | 1 goal | | | Equipment | needs | 09/15/ | Active | linked to | | | Fabrication and | | 2019 | | scheduled/d | | | Training | | | | ocumented | | | Disciplines: | | | | interventio | | | Occupational Therapy | | | | n | | + + +--------+--------+ + + + + +--------+-------+ + | Goal | Associated Problem | Outcom | Goal | Visit Notes | | | | e | Met? | | + + +--------+-------+ + | HH OT ADL | HH OT ADL DEFICITS | Not | Yes | Patient would benefit | | Description: By | | met, | | from sock aid and | | 10/12/2019: The | | adequa | | grabber for independent | | patient demonstrates | | te for | | dressing safely. Patient | | bathing/hygiene | | care | | has not yet obtained | | ability with maximal | | transi | | said equipment and is | | assistance using | | tion | | unable to complete | | handheld shower | | | | dressing independently. | | nozzle and shower | | [...] | | | | | | horn, registered occupational therapist and | | | | | | [...] OT DYSPNEA | HH OT DYSPNEA | Met | Yes | Patient verbalized | | Description: By | | | | understanding of energy | | 10/12/2019, the | | | | conservation and pacing | | patient will | | | | techniques to control | | verbalize | | | | dyspnea. Patient needed | | understanding of | | | | continued cueing for | | energy conservation | | | | 4-7-8 breathing | | and pacing to | | | | techniques. | | control dyspnea with | | [...] MOTOR | HH OT FINE MOTOR | Met | Yes | Increased windshield installer | | COORDINATION | COORDINATION | | | strength on BUE. Patient | | DEFICITS | DEFICITS | | | and family continue | | | | | | with theraputty | | | | | | strenthening exercises | | | | | | and report understanding | | | | | | of exercises. | + + +--------+-------+ + | HH OT HOME | HH OT HEP NEED | Met | Yes | Patient and family | | EXERCISE PROGRAM | | | | have demonstrated | | (HEP) NEED | | | | knowledge and ability to | | Description: The | | | | complete BUE | | patient and/or | | | | strengthening exercises | | caregiver will be | | | | with theraband and | | independent in the | | | | theraputty. | | home exercise | | | | | | program. | | | | | + + +--------+-------+ + | HH OT IMPAIRED | HH OT IMPAIRED | Met | Yes | Increased windshield installer | | STRENGTH | STRENGTH | | | strength on BUE. BUE | | Description: By | | | | strength remained the | | 10/12/2019, patient | | | | same. | | will have increased | | | | | | BUE strength to 4/5 | | | | | | to increase | | | | | | independence with | | | | | | ADLs. | | | | | + + +--------+-------+ + | HH OT ADAPTIVE | OT Adaptive | Not | Yes | Family has not | | EQUIPMENT | Equipment | met, | | purchased adaptive | | Description: By | Fabrication and | adequa | | equipment for dressing; | | 10/12/2019, patient | Training | te for | | however, patient has | | will demonstrate | | care | | demonstrated ability to | | safe use adaptive | | transi | | use a sock aid and | | equipment during | | tion | | grabber to dress self | | ADLs. | | | | independently. Patient | | | | | | would also benefit from | | | | | | a grab bar for the | | | | | | shower for safety. | + + +--------+-------+ + documented in this encounter"
--- OUTSIDE RECORDS SUMMARY | ~2020-03-14 | XMS | Encounter Summary ---
Demographics + + + | Address | [address] | | | [place] [address] | + + + | Home Phone [...] Team Providers + +------+ + | Care Human Resources Safety Manager Name | Role | Phone | [...] | +--------+ + + + + | 08/31/ | Home Care | [facility] [place] | García Walker, PT | PT SECONDARY EVAL | | 2019 | Visit | [place] [address] | [address] [place] | | | | | [place], [place] | [place] [address] | | | | | [address] | [phone] | | | | | [phone] | | | +--------+ + + + [...] + + + | Blood Pressure | 98/58 | 08/31/2019 2:11 PM | | | | | PST | | + + + + + | Pulse | 83 | 08/31/2019 2:11 PM | | | | | PST | | + + + + + | Temperature | 36.8 C (98.3 F) | 08/31/2019 2:11 PM | | | | | PST | | + + + + + | Respiratory Rate | - | - | | + + + + + | Oxygen Saturation | 98% | 08/31/2019 2:11 PM | on 3L pnc | | | | PST | | [...] | | | | | [place] [address] | | | | | | [phone] | | | | | | | | +--------+ + + + + | 04/13/ | Office | Cardiology | Shawn Michael | | | 2020 | Visit | | MD Marcelino [address] | | | | | | [address] [place] | | | | | | [place] [address] | | | | | | [phone] | | | | | | | [...]
--- OUTSIDE RECORDS SUMMARY | ~2020-03-14 | XMS | Encounter Summary ---
Demographics + + + | Address | [address] | | | [place] [address] | + + + | Home Phone [...] Team Providers + +------+ + | Care Button Sewer Hand Name | Role | Phone | [...] + + | 02/08/ | Telephone | [facility] | Nikolay, | Medication Refill | | 2019 | | MEDICINE [address] | MD Candido | | | | | [facility] | [address] [place] [address] | | | | | [place] [address] | [place] [address] | | | | | [phone] | [phone] | | | | | | | [...] | 2019 | Visit | | PUBLIC POLICY PROFESSOR [address] | | | | | | [place] | | | | | | [address] | | | | | | | | +--------+ + + + + | 04/11/ | Appointment | Radiology | Shawn Michael | | | 2019 | | | MD [address] | | | | | | [address] [place] | | | | | | [place] [address] | | | | | | [phone] | | | | | | | | +--------+ + + + + | 04/13/ | Office | Cardiology | Shawn Michael | | | 2019 | Visit | | MD [address] | | | | | | [address] [place] | | | | | | [place] [address] | | | | | | [phone] | | | | | | | [...]
--- OUTSIDE RECORDS SUMMARY | ~2020-03-14 | XMS | Encounter Summary ---
Demographics + + + | Address | [address] | | | [place] [address] | + + + | Home Phone [...] Team Providers + +------+ + | Care Sign Fabricator Name | Role | Phone | + [...] + + | 09/13/ | Telephone | [facility] | Nikolay, | Other | | 2019 | | MEDICINE [address] [place] [address] | MD Candido | | | | | [facility] | [address] [place] [address] | | | | | [place] [address] | [place] [address] | | | | | [phone] | [phone] | | | | | | | [...] 2019 | Visit | | HEALTH SCIENCES MANAGER [address] | | | | | | [place] | | | | | | [address] | | | | | | | | +--------+ + + + + | 04/11/ | Appointment | Radiology | Shawn Michael | | | 2019 | | | MD [address] | | | | | | [address] [place] | | | | | | [place] [address] | | | | | | [phone] | | | | | | | | +--------+ + + + + | 04/13/ | Office | Cardiology | Shawn Michael | | 2019 | Visit | | MD [address] | | | | | | [address] [place] | | | | | | [place] [address] | | | | | | [phone] | | | | | | | [...]
--- OUTSIDE RECORDS SUMMARY | ~2020-03-14 | XMS | Encounter Summary ---
Demographics + + + | Address | [address] | | | [place] [address] | + + + | Home Phone [...] | + + +---------+ + | Pee Perrni | ECON | Unknown | | + + +---------+ + | Layla Argueta | ECON | Unknown | | + + +---------+ + Care Team Providers + +------+ + | Care Ways Operator Name | Role | Phone | [...] [place] | | | | | | [address] | | | | | | [phone] | | | +--------+ + + + [...] [place] | | | | | | [address] | | | | | | | | +--------+ + + + + | 04/11/ | Appointment | Radiology | Shawn Michael | | | 2019 | | | MD Marcelino [address] | | | | | | [address] | | | | | | [place] [address] | | | | | | [phone] | | | | | | | | +--------+ + + + + | 04/13/ | Office | Cardiology | Zacharynnamdi Shawn | | | 2019 | Visit | | MD Marcelino [address] | | | | | | [address] [place] | | | | | | [place] [address] | | | | | | [phone] | | | | | | | [...] - REPEAT VISIT | | Discipline - Fdc | + + + + +--------+--------+-------+ + | Problem | Description | Start | Status | Goals | Interventio | | | | Date | | | ns | + + +--------+--------+-------+ + | HH SHARED FALLS | | | | - | 1 problem | | Disciplines: | | 06/13/20 | Active | | | | Fdc, | | 19 | | | interventio [...] 06/13/20 | Active | | | | Fdc | | 19 | | | interventio [...] 19 | | | interventio | | Fdc | | | | | n | [...] | | | | n | | Fdc | | | | | scheduled/d | [...] | | | | n | | Fdc | | | | | scheduled/d | | | | | | | ocumented | | | | | | | in this | | | | | | | visit | + + +--------+--------+-------+ + | Respiratory Status | COPD & CHF | | | - | 3 problem | | Disciplines: | | 06/13/20 | Active | | | | Fdc | | 19 | | | interventio [...] Comple | | | | | | yole | | | + + +--------+--------+ + | Monitor oxygen | Problem: Respiratory | | | Pt less SoB today and | | saturation | Status | Comple | | maintaining on 2 Liters | | | | yoel | | | + + +--------+--------+ + documented in this encounter"
--- OUTSIDE RECORDS SUMMARY | ~2020-03-14 | XMS | Encounter Summary ---
Demographics + + + | Address | [address] | | | [place] [address] | + + + | Home Phone [...] Providers + +------+ + | Care Chain Saw Driver Name | Role | Phone | [...] [place] | | | | | | [address] | | | | | | [phone] | | | +--------+ + + + [...] | | | | | [place] [address] | | | | | | [phone] | | | | | | | | +--------+ + + + + | 04/13/ | Office | Cardiology | Shawn Michael | | | 2019 | Visit | | MD Marcelino [address] | | | | | | [address] | | | | | | [place] [address] | | | | | | [phone] | | | | | | | [...] Plan + + | Visit Type - SOCIALLY RESPONSIBLE INVESTMENT ADVISER - REPEAT VISIT | | Discipline - Home Health Aide | + + + + +--------+--------+ + + | Problem | Description | Start | Status | Goals | Interventio | | | | Date | | | ns | + + +--------+--------+ + + | HH Aide Need | SOCIALLY RESPONSIBLE INVESTMENT ADVISER services | | | 1 goal | 3 goal | | Disciplines: | needed | | Active | linked to | interventio | | Detention, | | 019 | | scheduled/d | [...]
--- OUTSIDE RECORDS SUMMARY | ~2020-03-14 | XMS | Encounter Summary ---
Demographics + + + | Address | [address] | | | [place] [address] | + + + | Home Phone [...] Providers + +------+ + | Care Automatic Head Sawyer Name | Role | Phone | + [...] + + | 07/02/ | Telephone | [facility] | Nikolay, | Imaging Only | | 2019 | | MEDICINE [address] | MD aCndido | | | | | [facility] | [address] [place] [address] | | | | | [place] [address] | [place] [address] | | | | | [phone] | [phone] | | | | | | | [...] | | 2019 | Visit | | NEUROSURGICAL NURSE PRACTITIONER [address] | | | | | | [place] | | | | | | [address] | | | | | | | | +--------+ + + + + | 04/11/ | Appointment | Radiology | Shawn Michael | | | 2019 | | | MD [address] | | | | | | [address] [place] | | | | | | [place] [address] | | | | | | [phone] | | | | | | | | +--------+ + + + + | 04/13/ | Office | Cardiology | Shawn Michael | | 2019 | Visit | | MD [address] | | | | | | [address] [place] | | | | | | [place] [address] | | | | | | [phone] | | | | | | | [...]
--- OUTSIDE RECORDS SUMMARY | ~2020-03-14 | XMS | Encounter Summary ---
Demographics + + + | Address | [address] | | | [place] [address] | + + + | Home Phone [...] Team Providers + +------+ + | Care Election Judge Name | Role | Phone | + [...] [place] | | | | | | [address] | | | | | | [phone] | | | +--------+ + + + [...] [place] | | | | | | [address] | | | | | | | | +--------+ + + + + | 04/11/ | Appointment | Radiology | Shawn Michael | | | 2019 | | | MD Marcelino [address] | | | | | | [address] | | | | | | [place] [address] | | | | | | [phone] | | | | | | | | +--------+ + + + + | 04/13/ | Office | Cardiology | Shawn Michael | | | 2020 | Visit | | MD Marcelino [address] | | | | | | [address] | | | | | | [place] [address] | | | | | | [phone] | | | | | | | [...]
--- OUTSIDE RECORDS SUMMARY | ~2020-03-14 | XMS | Encounter Summary ---
Demographics + + + | Address | [address] | | | [place] [address] | + + + | Home Phone [...] Team Providers + +------+ + | Care Corrective Therapy Aide Teacher Name | Role | Phone | [...] [place] | | | | | | [address] | | | | | | [phone] | | | +--------+ + + + [...] [place] | | | | | | [address] | | | | | | | | +--------+ + + + + | 04/11/ | Appointment | Radiology | Shawn Michael | | 2019 | | | MD Marcelino [address] | | | | | | [address] | | | | | | [place] [address] | | | | | | [phone] | | | | | | | | +--------+ + + + + | 04/13/ | Office | Cardiology | Shawn Michael | | | 2019 | Visit | | MD Marcelino [address] | | | | | | [address] [place] | | | | | | [place] [address] | | | | | | [phone] | | | | | | | [...] | | scheduled/d | n | | Care Home, | | | | ocumented | scheduled/d | | Physical Therapy, | | | | interventio | ocumented | | Occupational | | | | n | in this | | Therapy, Case | | | | | visit | | Muck Miner, Physical | | | | | | | Water And Fire Technician | | | | | | + + +--------+--------+ + + | HH SHARED PAIN | | | | - | 2 problem | | Disciplines: | | 06/13/20 | Active | | | | Care Home | | 19 | | | interventio [...] 19 | | | interventio | | Care [...] 06/13/20 | Active | | | | Care Home | | 19 | | | interventio [...] | | | | | will request boiler tester visit. | + + +--------+--------+ + | [...]
--- OUTSIDE RECORDS SUMMARY | ~2020-03-14 | XMS | Encounter Summary ---
Demographics + + + | Address | [address] | | | [place] [address] | + + + | Home Phone [...] Team Providers + +------+ + | Care Nylon Machine Operator Name | Role | Phone [...] Visit | [place] [address] | COMBINATION PRESSER [address] | | | | | [place] | [place] | | | | | [address] | [address] | | | | | [phone] | | | +--------+ + + + [...] [place] | | | | | | [address] | | | | | | | | +--------+ + + + + | 04/11/ | Appointment | Radiology | Shawn Michael | | 2019 | | | MD Marcelino [address] | | | | | | [address] | | | | | | [place] [address] | | | | | | [phone] | | | | | | | | +--------+ + + + + | 04/13/ | Office | Cardiology | Shawn Michael | | | 2020 | Visit | | MD Marcelino [address] | | | | | | [address] | | | | | | [place] [address] | | | | | | [phone] | | | | | | | [...]
--- OUTSIDE RECORDS SUMMARY | ~2020-03-14 | XMS | Encounter Summary ---
Demographics + + + | Address | [address] | | | [place] [address] | + + + | Home Phone [...] Team Providers + +------+ + | Care Life Claims Examiner Name | Role | Phone [...] [place] | | | | | | [address] | | | | | | [phone] | | | +--------+ + + + [...] +---------+ + + | Blood Pressure | 132/76 | 09/27/2019 10:45 AM | | | | | PST | | + +---------+ + + | Pulse | 72 | 09/27/2019 10:45 AM | | | | | PST | | + +---------+ + + | Temperature | - | - | | + +---------+ + + | Respiratory Rate | 18 | 09/27/2019 10:45 AM | | | | | [...] | | 2019 | Visit | | CRUISE CONSULTANT [address] | | | | | | [place] | | | | | | [address] | | | | | | | | +--------+ + + + + | 04/11/ | Appointment | Radiology | Shawn Michael | | | 2019 | | | MD [address] | | | | | | [address] [place] | | | | | | [place] [address] | | | | | | [phone] | | | | | | | | +--------+ + + + + | 04/13/ | Office | Cardiology | Shawn Michael | | | 2019 | Visit | | MD [address] | | | | | | [address] [place] | | | | | | [place] [address] | | | | | | [phone] | | | | | | | [...] Plan + + | Visit Type - ELECTRONIC EQUIPMENT INSTALLER - REPEAT VISIT | | Discipline - Home Health Aide | + + + + +--------+--------+ + + | Problem | Description | Start | Status | Goals | Interventio | | | | Date | | | ns | + + +--------+--------+ + + | HH Aide Need | ELECTRONIC EQUIPMENT INSTALLER services | | | 1 goal | 3 goal | | Disciplines: | needed | | Active | linked to | interventio | | Retirement, | | 019 | | scheduled/d | [...]
--- OUTSIDE RECORDS SUMMARY | ~2020-03-14 | XMS | Encounter Summary ---
Demographics + + + | Address | [address] | | | [place] [address] | + + + | Home Phone [...] Providers + +------+ + | Care Cutter Barrel Drum Name | Role | Phone | + [...] [place] | | | | | | [address] | | | | | | [phone] | | | +--------+ + + + [...] | | | | | [place] [address] | | | | | | [phone] | | | | | | | | +--------+ + + + + | 04/13/ | Office | Cardiology | Shawn Michael | | | 2019 | Visit | | MD Marcelino [address] | | | | | | [address] | | | | | | [place] [address] | | | | | | [phone] | | | | | | | [...] 020 | | | interventio | | Correction [...] | linked to | interventio | | Correction, | | 020 | | scheduled/d | n | | Physical Therapy, | | | | ocumented | scheduled/d | | Occupational | | | | interventio | ocumented | | Therapy, Home Health | | | | n | in this | | Jana Catalyst Concentration Operator, | | | | | visit [...] | | | | | | per [facility] protocols | | | | | | [...]
--- OUTSIDE RECORDS SUMMARY | ~2020-03-14 | XMS | Clinical Summary ---
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 | | + [...] 9 | + + + + | ad terminal makeup operator (current) use of anticoagulants - clopidogrel (PLAVIX) [...] loss; | | | | | | jail | | | | | | prescription opiate | | | | | | use | +--------+ + + + + | 03/07/ | Telephone | Internal Medicine | Nikolay, | Referral | | 2019 | | | MD Candido | | +--------+ + + + + | 03/06/ | Home Care | Home Health Services | Jonel Lozaon | DICE MAKER SECONDARY EVAL | | 2019 | Visit [...] | | | | | ([facility]); Colitis; | | | | | | Weakness; 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 | | | | | | loss; Acute | | | | | | 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 ([facility]); | | | | | | Chronic obstructive | | | | | | pulmonary disease, | | | | | | unspecified COPD | | | | | | type ([facility]); Anemia, | | | | [...] | | | | type ([facility]); | | | | | | Decubitus ulcer of | | | | | | sacral region, stage | | | | | | 2 ([facility]); 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 ([facility]); | | | | | | Pressure injury of | | | | | | sacral region, stage | | | | | | 3 ([facility]) | +--------+ + + + [...] | | | | malnutrition ([facility]); | | | | | [...] | | | | failure ([facility]); | | | | | | Chronic obstructive | | | | | | pulmonary disease, | | | | | | unspecified COPD | | | | | | type ([facility]); Moderate | | | | | | protein-calorie | | | | | | malnutrition ([facility]); | | | | | [...] | | 2019 | | | MD Canddio | | +--------+ + + + + [...] involving | | | | | | kwethluk coronary | | | | | | artery of kwethluk | | | | | | heart [...] | | 2019 | Visit | | IMAGING SCHEDULER | | +--------+ + + + + [...] | | 2019 | Visit | | IMAGING SCHEDULER | | +--------+ + + + + [...] | | 2019 | Visit | | FITTER'S ASSISTANT [address] | | | | | | [place] | | | | | | [address] | | | | | | | | +--------+ + + + + | 04/11/ | Appointment | Radiology | Shawn Stratton | | | 2019 | | | MD [address] | | | | | | [address] [place] | | | | | | [place] [address] | | | | | | [phone] | | | | | | | | +--------+ + + + + | 04/13/ | Office | Cardiology | Shawn Stratton | | | 2019 | Visit | | MD [address] | | | | | | [address] [place] | | | | | | [place] [address] | | | | | | [phone] | | | | | | | [...] J?MRN: | | | | | | [id number] | | | [id number] | | | riteri | | | [...] | | | St. | | | [place] | | | y | | | [...] | | | s | | | [place] | | | ED | | | Dispar | | | ity | | | Measur | | | e - | | | [place] | | | has | | | [...] | | | s. | | | [place] | | | | | | Health [...] | | | By: | | | [place] | | | | | | Health [...] | | 20 0 | | | [facility] | | | | | | [facility] | | | l | | | Hospit | | | al 1 0 | | | [facility] | [facility] | | | [place] | | | y | | | [...] | | | St. | | | [place] | | | y H. | | [...] | | | St. | | | [place] | | | y H. | | [...] | | | n-bang | | | jluieta | | | malnut | | | [...] | | e of | | | kwethluk | | | | | | palencia [...] | | e of | | | kwethluk | | | | | | palencia [...] | | | 2019 | | | [place] | | | | | | Genera [...] | | | M.D. | | | Clinical Support Tech | | | al | | | [...] J?MRN: | | | | | | [id number] | | | [id number] | | | riteri | | | [...] | | | endati | | | on:[place] | | | son | | | [...] | | | St. | | | [place] | | | y | | | [...] | | | s | | | [place] | | | ED | | | Dispar | | | ity | | | Measur | | | e - | | | [place] | | | has | | | [...] | | | s. | | | [place] | | | | | | Health [...] | | | By: | | | [place] | | | | | | Health [...] | | 19 0 | | | [facility] | | | | | | [facility] | | | l | | | Hospit | | | al 1 0 | | | [facility] | | | St[facility] | | | [place] | | | y | | | [...] | | | St. | | | [place] | | | y H. | | [...] | | | St. | | | [place] | | | y H. | | [...] | | e of | | | kweth[place]uk | | | | | | palencia [...] | | e of | | | kwethluk | | | | | | palencia [...] | | e of | | | kweth[place] | | | | | | palencia [...] | | | 2019 | | | [place] | | | | | | Genera [...] | | | M.D. | | | Clinical Support Tech | | | al | | | [...] J?MRN: | | | | | | [id number] | | | [id number] | | | riteri | | | [...] | | | St. | | | [place] | | | y | | | [...] | | | s | | | [place] | | | ED | | | Dispar | | | ity | | | Measur | | | e - | | | [place] | | | has | | | [...] | | | s. | | | [place] | | | | | | Health [...] | | | By: | | | [place] | | | | | | Health [...] | | 18 0 | | | [facility] | | | | | | [facility] | | | l | | | Hospit | | | al 1 0 | | | [facility] | | | St[facility] | | | [place] | | | y | | | [...] | | | St. | | | [place] | | | y H. | | [...] | | | St. | | | [place] | | | y H. | | [...] | | e of | | | kw[place] | | | | | | palencia [...] | | e of | | | kwethluk | | | | | | palencia [...] | | e of | | | kwethl[place] | | | | | | palencia [...] | | | 2019 | | | [place] | | | | | | Genera [...] | | | M.D. | | | Clinical Support Tech | | | al | | | [...] | | | otify/ | | | [id number] | | | [id number] | | | [id number] | | | [id number] | | | [id number] | | | [id number] | | | | | | PLEASE [...] J?MRN: | | | | | | [id number] | | | [id number] | | | riteri | | | [...] | | | St. | | | [place] | | | y | | | [...] | | | s | | | [place] | | | ED | | | Dispar | | | ity | | | Measur | | | e - | | | [place] | | | has | | | [...] | | | s. | | | [place] | | | | | | Health [...] | | | By: | | | [place] | | | | | | Health [...] | | 17 0 | | | [facility] | | | | | | Gen[facility] | | | l | | | Hospit | | | al 1 0 | | | [facility] | | | St. | | | [place] | | | y | | | [...] | | | St. | | | [place] | | | y H. | | [...] | | | St. | | | [place] | | | y H. | | [...] | | e of | | | kw[place] | | | | | | palencia [...] | | e of | | | kwethl[place] | | | | | | palencia [...] | | e of | | | kweth[place] | | | | | | palencia [...] | | | 2019 | | | [place] | | | | | | Genera [...] | | | 2019 | | | [place] | | | | | | Genera [...] | | | 2019 | | | [place] | | | | | | Genera [...] | | | M.D. | | | Clinical Support Tech | | | al | | | [...] | | | otify/ | | | [id number] | | | [id number] | | | [...] J?MRN: | | | | | | [id number] | | | [id number] | | | riteri | | | [...] | | | endati | | | on:[place] | | | son | | | [...] | | | St. | | | [place] | | | y | | | [...] | | | s | | | [place] | | | ED | | | Dispar | | | ity | | | Measur | | | e - | | | [place] | | | has | | | [...] | | | s. | | | [place] | | | | | | Health [...] | | | By: | | | [place] | | | | | | Health [...] | | | Samari | | | sctot | | | Hospit | | | al 3 0 | | | | | | Provid | | | ence | | | St. | | | Karla | | | Medica | | | l | | | Center | | | 16 0 | | | [facility] | | | | | | Genera | | | l | | | Hospit | | | al 1 0 | | | [facility] | | | St. | | | [place] | | | y | | | [...] | | | St. | | | [place] | | | y H. | | [...] | | | St. | | | [place] | | | y H. | | [...] | | e of | | | [place] | | | | | | palencia [...] | | e of | | | kw[place] | | | | | | palencia [...] | | e of | | | [place] | | | | | | palencia [...] | | | 2019 | | | [place] | | | | | | Genera [...] | | | 2019 | | | [place] | | | | | | Genera [...] | | | 2019 | | | [place] | | | | | | Genera [...] | | | M.D. | | | Clinical Support Tech | | | al | | | [...] | | | St. | | | K[place]a | | | Medica | | | [...] [address] | [place] | [phone] | | [facility] | | [address] | | | - LABORATORY | | [...] Camargo | REFERENCE LAB | | [facility] [address], [place] [address] Chemist Organic: Nenita CHAVEZ | | Boogie PhD, Phone: [phone] | | + + + + + + + + | Performing | Address | City/State/Zipcode | Phone Number | | Organization | | | | + + + + + | REFERENCE LAB | [address] | [place], [place] | [phone] | | [facility] | [place] | [address] | | + + + + + [...] [address] | [place] | [phone] | | [facility] | | [address] | | | - LABORATORY | | [...] | [address] | [place] | [phone] | | [facility] | | [address] | | | - LABORATORY | | [...] | 0.80 | 0.55 - 1.02 | [place] | | | | | mg/dL | [...] | [facility] | | | [place] | RATE,ESTIMATED | | MEDICAL | | | | mL/min/1.78h7Spdh than | | CENTER - | | [...] + | [facility] [facility] | [address] | [place] | [phone] | | [facility] | | [address] | | | - LABORATORY | | [...] [address] | [place] | [phone] | | [facility] | | [address] | | | - LABORATORY | | [...] + | [address] [facility] | [address] | [place] | [phone] | | [facility] | | [address] | | | - LABORATORY | | [...] + + + + | Product | [id number] | | [facility] | | | Code | | | [facility] | | | | | | MEDICAL | | | | | | CENTER - | | | | | | BLOOD BANK | | + + + + + + | UNIT # | [id number] | | [facility] | | | | [...] | | | INTERP | | | [facility] | | [...] + + + + | Blood | [id number] | | [facility] | | | Product [...] + | [facility] [facility] | [address] | [place], [place] | | | [facility] | | [address] | | | - BLOOD BANK | [...] | [facility] | | | [place] | RATE,ESTIMATED | | MEDICAL | | | | mL/min/1.51f9Ainu than | | CENTER - | | [...] | [address] | [place] | [phone] | | [facility] | | [address] | | | - LABORATORY | | [...] [address] | [place] | [phone] | | [facility] | | [address] | | | - LABORATORY | | [...] + | [facility] [facility] | [address] | [place] | [phone] | | [facility] | | [address] | | | - LABORATORY | | [...] [address] | [place] | [phone] | | [facility] | | [address] | | | - LABORATORY | | [...] [address] | [place] | [phone] | | [facility] | | [address] | | | - LABORATORY | | [...] (L) | 50 - 170 ug/dL | [facility] | | | | | | [facility] | | | | [...] ST. | [address] | [place] | [phone] | | [facility] | | [address] | | | - LABORATORY | | [...] | | | Anticoagulation Range: | | [facility] | | | | [...] [address] | [place] | [phone] | | [facility] | | [address] | | | - LABORATORY | | [...] + | [facility] [facility] | [address] | [place] | [phone] | | [facility] | | [address] | | | - LABORATORY | | [...] - 1.030 | [facility] | | | I[place], | | | [facility] | | [...] | [address] | [place] | [phone] | | [facility] | | [address] | | | - LABORATORY | | [...] + + | Performing | Address | City/State/[facility] | Phone Number | | Organization | [...] report was sent | | | by Fan[employer]ager ([email or web address]) on 02/27/2020 1:18 PM. This did not [...] along the anterior lamina of | | P7uhowoiekopa (series 5 image 55). Extensive spondylosis is [...] along the anterior lamina of | | O0mqenqhrmmnz (series 5 image 55).A preliminary report was sent by [employer] ([email or web address]) on | | 02/27/2020 1:18 PM. This didnot mention the nondistended fractures involving the | | anterior lamina of U8lazytwzbtgn. This information was conveyed to Dr. Lux.Dictated [...] | |A preliminary report was sent by [employer] ([employer]) on 02/27/2020 1:18 PM. This did | [...] findings. A preliminary report was sent by [employer] (My[employer]) with no | | | significant discrepancy [...] While this could represent changes | | zjvwmpg-ur-hkib anastomosis (with blind-ending pouch), the findings doraise [...] While | | this could represent changes gwzbvao-re-rqpp anastomosis (with blind-ending pouch), the | | findings doraise suspicion for abscess in the presacral region and raise suspicionfor | | anastomotic breakdown or leak, in the appropriate clinical setting.Rectal tumor is not | | entirely excluded on the current study.6. Please see above for other incidental and | | chronic findings.A preliminary report was sent by [employer] ([email or web address]) with no significant | | discrepancyon 02/27/2020 [...] | |A preliminary report was sent by Fan[employer] ([email or web address]) with no significant discrepancy | |on 02/27/2020 [...] | [address] | [place] | [phone] | | [facility] | | [address] | | | - LABORATORY | | [...] + + | Performing | Address | City/State[facility] | Phone Number | | Organization | | | | + + + + + | [facility] | [address] | [place] | [phone] | | [facility] | | [address] | | | - LABORATORY | | [...] ST. | [address] | [place], [place] | [phone] | | [facility] | | [address] | | | - LABORATORY | | [...] | | | | | | [employer] | | | | | [...] ST. | [address] | [place] | [phone] | | [facility] | | [address] | | | - LABORATORY | | [...] ST. | [address] | [place], [place] | [phone] | | [facility] | | [address] | | | - LABORATORY | | [...] [address] | [place] | [phone] | | [facility] | | [address] | | | - LABORATORY | | [...] [address] | [place], [place] | [phone] | | [facility] | | [address] | | | - LABORATORY | | [...] | | Screen | | | [facility] | | [...] ST. | [address] | [place] | | | [facility] | | [address] | | | - BLOOD BANK | [...] | [address] | [place], [place] | [phone] | | [facility] | | [address] | | | - LABORATORY | | [...] [address] | [place] | [phone] | | [facility] | | [address] | | | - LABORATORY | | [...] ST. | [address] | [place] | [phone] | | [facility] | | [address] | | | - LABORATORY | | [...] ST. | [address] | [place], [place] | [phone] | | [facility] | | [address] | | | - LABORATORY | | [...] [address] | [place] | [phone] | | [facility] | | [address] | | | - LABORATORY | | | | + + + + + Culture, Anaerobic (02/16/2020 1:37 PM PDT)Only the most recent of 2 results within the ti ok period is included. + + + + [...] | [address] | [place], [place] | [phone] | | [facility] | | [address] | | | - LABORATORY | | [...] | | | | | | [place] | | | | | + +--------+ [...] 328 | | | MAUREEN Patient Number [id number] Date of Study | | | 02/14/2020 Visit Number [id number] Referring | | | Physician DIMAS Coe | | | Poultry Barn Manager RAJESH COREY Number Date of | | | 1930 Interpreting GLENDA STRATTON MD | | | Physician Age | | | 89 year(s) Nurse Gender Female | | | Stress Research Associate Molecular Biology Procedure Type of Study TTE | | | procedure:ECHO Complete. Procedure DateDate: 02/14/2020 Start: 03:12 | | | PM Study [facility] Quality: Adequate | | | visualization Indications:CONGESTIVE [...] Number 328 | | MAUREEN Patient Number [id number] Date of Study 02/14/2020 Visit | | Number [id number] Referring Physician DIMAS Coe Accession | | [id number] Poultry Barn Manager RAJESH COREY Number Date of 1930 | [...] [facility] | | | [facility] on February 09, [...] reported to the [facility] | | Imaging radiologist on [...] + + | Card Lot # | [id number] | | | | + + + [...] | [address] | [place] | [phone] | | [facility] | | [address] | | | - LABORATORY | | [...] ST. | [address] | [place] | [phone] | | [facility] | | [address] | | | - LABORATORY | | [...] | [address] | [place] | [phone] | | [facility] | | [address] | | | - LABORATORY | | [...] [address] | [place] | [phone] | | [facility] | | [address] | | | - [...] [address] | [place] | [phone] | | [facility] | | [address] | | | - LABORATORY | | [...] [address] | [place] | [phone] | | [facility] | | [address] | | | - LABORATORY | | [...] | | distention of the esophagus, likely customer operations representative of achal[employer]. 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 | | | |Dictated [...] - 1.030 | [facility] | | | [place], | | | [facility] | | [address] | [place] | [phone] | | [facility] | | [address] | | | - LABORATORY | | [...] ST. | [address] | [place], [place] | [phone] | | [facility] | | [address] | | | - LABORATORY | | [...] difficile, | Toxigenic C. difficile | | [facility] | | | Interp | [...] [address] | [place] | [phone] | | [facility] | | [address] | | | - LABORATORY | | [...] [address] | [place] | [phone] | | [facility] | | [address] | | | - LABORATORY | | [...] ST. | [address] | [place], [place] | [phone] | | [facility] | | [address] | | | - LABORATORY | | [...] [address] | [place] | [phone] | | [facility] | | [address] | | | - LABORATORY | | [...] | [address] | [place] | [phone] | | [facility] | | [address] | | | - LABORATORY | | [...] | | | | LEONIDAS CALVO MD ([id number]) | | | | | | on [...] | [employer] [facility] [facility] | [facility] | [id number] | 06/06/20 | | | Medica | | | HEALTH | | 19-Pre | | | re | | | MDCR | | sent | | | | + +--------+ +--------+ +---------+--------+ | [employer] | [facility] | [id number] | 06/06/20 | [phone] | | Medica [...] + +--------+ +--------+ + + | Ángela Corwley | Person | Self | [birth year] | [address] | | | al/Fam | | 1930 | [phone] | [place] | | | [place] | | | [address] (Home) | [address] | + +--------+ +--------+ + + Advance Directives + + + + + | Type | Date Recorded | Patient | Explanation | | | | Jewelry Drilling Machine Operator | | + + + + + [...] with: | Patient | | | | Jewelry Drilling Machine Operator | | + + +---+ + + [...] with: | Patient | | | | Jewelry Drilling Machine Operator | | + + +---+
--- OUTSIDE RECORDS SUMMARY | ~2020-03-14 | XMS | Encounter Summary ---
Demographics + + + | Address | [address] | | | [place] [address] | + + + | Home Phone [...] Providers + +------+ + | Care Senior Sql Database Developer Name | Role | Phone | + +------+ + | Candido Link | PCP | | | MD | | | + +------+ + Encounter Details +--------+ + + + + | Date | Type | Department | Care Team | Description | +--------+ + + + + | 03/13/ | Abstract | [facility] | Provider, | | | 2019 | | GASTROENTEROLOGY | MD [address] | | | | | [address] [facility] | [place] | | | | | [address] | [place] [address] | | | | | [address] | | | | | | [phone] | | | +--------+ + + + [...] [place] | | | | | | [address] | | | | | | | | +--------+ + + + + | 04/11/ | Appointment | Radiology | Shawn Michael | | | 2019 | | | MD [address] | | | | | | [address] [place] | | | | | | [place] [address] | | | | | | [phone] | | | | | | | | +--------+ + + + + | 04/13/ | Office | Cardiology | Shawn Michael | | | 2019 | Visit | | MD [address] | | | | | | [address] [place] | | | | | | [place] [address] | | | | | | [phone] | | | | | | | [...]
--- OUTSIDE RECORDS SUMMARY | ~2020-03-14 | XMS | Encounter Summary ---
Demographics + + + | Address | [address] | | | [place] [address] | + + + | Home Phone [...] Team Providers + +------+ + | Care Greaser Helper Name | Role | Phone | [...] [place] | | | | | | [address] | | | | | | [phone] | | | +--------+ + + + [...] [place] | | | | | | [address] | | | | | | | | +--------+ + + + + | 04/11/ | Appointment | Radiology | Shawn Michael | | | 2019 | | | MD Marcelino [address] | | | | | [address] [place] | | | | | | [place] [address] | | | | | | [phone] | | | | | | | | +--------+ + + + + | 04/13/ | Office | Cardiology | Shawn Michael | | | 2019 | Visit | | MD [address] | | | | | | [address] [place] | | | | | | [place] [address] | | | | | | [phone] | | | | | | | [...]
--- OUTSIDE RECORDS SUMMARY | ~2020-03-14 | XMS | Encounter Summary ---
Demographics + + + | Address | [address] | | | [place] [address] | + + + | Home Phone [...] Team Providers + +------+ + | Care Resource Paraprofessional Name | Role | Phone | [...] | | | | | [facility] | [address] [place] [address] | | | | | [place] [address] | [place] [address] | | | | | [phone] | [phone] | | | | | | | [...] | | 2019 | Visit | | ADVANCED NURSING PROFESSOR [address] | | | | | | [place] | | | | | | [address] | | | | | | | | +--------+ + + + + | 04/11/ | Appointment | Radiology | Shawn Michael | | | 2019 | | | MD [address] | | | | | | [address] [place] | | | | | | [place] [address] | | | | | | [phone] | | | | | | | | +--------+ + + + + | 04/13/ | Office | Cardiology | Shawn Michael | | | 2019 | Visit | | MD [address] | | | | | | [address] [place] | | | | | | [place], [place] [address] | | | | | | [phone] | | | | | | | [...]
--- OUTSIDE RECORDS SUMMARY | ~2020-03-14 | XMS | Encounter Summary ---
Demographics + + + | Address | [address] | | | [place] [address] | + + + | Home Phone [...] Team Providers + +------+ + | Care Inventory Worker Name | Role | Phone | [...] | 09/22/ | Home Care | [facility] [place] | Sam Quintanilla, | PT REPEAT VISIT | | 2019 | Visit | [place] [address] | LO[employer]ER HELPER [address] | | | | | [place] | [place] | | | | | [address] | [address] | | | | | [phone] | | | +--------+ + + + [...] +---------+ + + | Blood Pressure | 125/80 | 09/22/2019 10:10 AM | | | | | PST | | + +---------+ + + | Pulse | 76 | 09/22/2019 10:10 AM | | | | | PST | | + +---------+ + + | Temperature | - | - | | + +---------+ + + | Respiratory Rate | - | - | | + +---------+ + + | Oxygen Saturation | 96% | 09/22/2019 10:10 AM | on 2 lit 02 | | | | PST | | [...] | | 2019 | Visit | | [facility] [address] | | | | | | [place] | | | | | | [address] | | | | | | | | +--------+ + + + + | 04/11/ | Appointment | Radiology | Shawn Michael | | | 2019 | | | MD [address] | | | | | | [address] [place] | | | | | | [place] [address] | | | | | | [phone] | | | | | | | | +--------+ + + + + | 04/13/ | Office | Cardiology | Shawn Michael | | | 2019 | Visit | | MD [address] | | | | | | [address] [place] | | | | | | [place] [address] | | | | | | [phone] | | | | | | | [...] training | Problem: PT | | | Therapist educated pt | | Description: | IMPAIRED GAITGoal: | Comple | | on appropriate AD use | | Evaluate and | HH PT GAIT/STAIRS | yoel | | given noted deficits and | | instruct patient | | | | impairments. Instructed | | and/or caregiver in | | | | pt with use of 4ww for | | gait training using | | | | 4x20 feet on even | | 4-wheeled walker [...] hips. | | | | | | LOOM FIXER HELPER notes ongoing | | | | | | deficits: flexed trunk | | | | | | and vi pain tath limits | | | | | | gait, that will | | | | | | continue to be addressed | | | | | | in future visits. | + + +--------+--------+ + | PT therapeutic | Problem: PT | | | Therapist performed | | exercise | IMPAIRED | Comple | | progressive resistance | | Description: | STRENGTHGoal: PT | yoel | | exercises in seated: | | Evaluate and | STRENGTH | | | ankle PF/DF, LAQ, hip | | instruct the patient | | | | abd/add, hip flexion and | | and/or caregiver | | | | sit to stands and | | and provide home | | | | standing: ankle PF/DF | | exercise program to | | | | and hip add/abd/flexion. | | restore maximal | | | | Therapist adjusted | | functional strength. | | | | difficulty by changing | | | | | | position relative to | | | | | | gravity and use [...] | | | | form as needed. LOOM FIXER HELPER | | | | | | instructed, performed | | | | | | and reviewed HEP with pt | | | | | | for LE strengthening | | | | | | and ROM. Written | | | | | | materials left for pt to | | | | | | use for recall. Pt | | | | | | demonstrates fair | | | | | | understanding, needs | | | | | | occasional prompts and | | | | | | cues for form. | + + +--------+--------+ + | PT transfer | Problem: HH PT | | | LOOM FIXER HELPER instructed pt on | | training | [...] | Problem: HH SHARED | | | LOOM FIXER HELPER educated pt on | | Prevention | [...]
--- OUTSIDE RECORDS SUMMARY | ~2020-03-14 | XMS | Encounter Summary ---
Demographics + + + | Address | [address] | | | [place] [address] | + + + | Home Phone [...] Team Providers + +------+ + | Care Caul Fat Puller Name | Role | Phone | [...] | | | [address] [place] | [place] [address] | | | | | [place] [address] | | | | | | [phone] | | | +--------+ + + + [...] | | 2019 | Visit | | [facility] [address] | | | | | | [place] | | | | | | [address] | | | | | | | | +--------+ + + + + | 04/11/ | Appointment | Radiology | Shawn Michael | | | 2019 | | | MD [address] | | | | | | [address] [place] | | | | | | [place], [place] [address] | | | | | | [phone] | | | | | | | | +--------+ + + + + | 04/13/ | Office | Cardiology | Shawn Michael | | 2019 | Visit | | MD [address] | | | | | | [address] [place] | | | | | | [place] [address] | | | | | | [phone] | | | | | | | [...]
--- OUTSIDE RECORDS SUMMARY | ~2020-03-14 | XMS | Encounter Summary ---
Demographics + + + | Address | [address] | | | [place] [address] | + + + | Home Phone [...] Phone | + + +---------+ + | Ydaiel Argueta | ECON | Unknown | | + + +---------+ + | Pee Perrin | ECON | Unknown | | + + +---------+ + | Laylajanelle Argueta | ECON | Unknown | | + + +---------+ + Care Team Providers + +------+ + | Care Tool Hardener Name | Role | Phone | [...] + + | 06/11/ | Surgery | [facility] | Edwin Stoddard MD | COLONOSCOPY-Possible | | 2019 | | MED CTR MP INTRA OP | [address], [place] | Flex Sig | | | | [address] | [address] [place], [place] | | | | | [place], [place] | [address] | | | | | [address] | | | | | | [phone] | | | +--------+---------+ + + + [...] might be different fro m the original. [place] HOSPITALIST DISCHARGE SUMMARY Pt. 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 Fell MACHINE WASHER Was trying to sit on walker but [...] walk on Heart Disease CAD TAVR in [place] February 16, 2019 bioprosthetic complicated by moderate [...] er as he spoke to her Prior Specimen Preparation Assistant [place] area, discussed with son in room with patien t if clot and not anticoag risk of worsening of clot CVA CA etc... 5th Dr Pineda reviewed and says would stop Anticoag and I spoke with Dr Velazquez (Ting) and h e says stop Anticoag that these pressures not unexpected and I told patient this and her son and Dr Cochran office in [place] contacted for their opionion. Did stop Coumadin which is not therapeutic yet anyhow 6th I called Dr Teddy Cochran office and his office has Echo via CLIPPATE but he was to call m e and did not. I called Dr Ayoub office and his office provided his pager, no reply yet to p aging him. Addendum (06/11/2019 18:44) Dr Ayoub not answer page so I paged again and am calling office number (now closed but hope to connect to bulldozer press operator) Addendum (06/11/2019 19:00) Did reach Anna [phone] and she confirmed Mega pager number says now online facilitator is Dr Buck and that Doc will be paged and if not reply in 20 minutes call back and the will use Yesmail. I provided by Yesmail for call back. Addendum (06/11/2019 19:43) I [...] latter to get back to me Also MACHINE WASHER her Lasix was 20 mg daily not [...] chronic hypoxic respir failure on [place] O2 MACHINE WASHER 6th she says 2-3 liters at home. Today is 97% on 4 liters. Heme positive stool Hx of EGD for Schtazkis ring EGD Jun 07 Dr Stoddard mild ring dilated, gastroparesis, gastritis PRBC once on Jun 02 4th son says had Colonoscopy due to bleeding 11 months ago and was clean, says her HGB pricing/signage team member nically prior to TAVR was around 10. 6th Colonoscopy (limited had poor prep) did see the area of concern and has severe divertic ulosis no bleeding no visible cancer and NOT need biopsy, did advance to the descending colo n. 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 Please see progress note and MACHINE WASHER medication list f or any discrepancies. PLEASE NOTE: ~ MACHINE WASHER carvedilol dose 6.25 mg BID (double what was ordered on admit); ~ Hydralazine therapy complete MACHINE WASHER; ~ docusate, fluticasone are PRN not scheduled MACHINE WASHER; ~ added several meds (Maynard, eye drops, Brovana/Pulmicort nebs, tamsulosin); ~ pt [...] MD at the cardiac study Center in [facility]. Procedure was complicated with moderate perivalvu lar [...] regurgitation pre sent. MD Dr Teddy Nova [facility] [address] [phone] (Son has said Dr Cochran and Dr Ayoub in same office but the number below bulldozer press operator did not kn ow of Dr Teddy Cochran) Dr Asha Ayoub [place] office [phone] press 5 and his pager is [phone] Dr Marcus Maguire [phone] (dot meyaddendum tdnorefesh nownorefresh) (dot meyvent) (dot [...] 11:am with Dr. Millan . Contact information: [address] [place] [phone] Condition: Patient being discharged with condition improved Greater than 30 minutes were spent on discharge and coordination of post-hospital care. (myla morton) Electronically signed by: Bruce Cochran MD, 06/12/2019 14:06 [facility] Reference. This is NOT part [...] this chart may have been created with Silver Push voice recognition software. Occasi onal wrong-word or [...] sent through Care Everywhere.Diverticulitis, Discharge Instructions for (Spanish)Congestive Heart Failure (CHF), Left-Sided (Spanish)doc umented in this encounter Medications at Time [...] as of this encounter Progress Notes Bruce oCchran MD - 06/12/2019 1:17 PM PDTFormatting of this note might be different fro m the original. [place] HOSPITALIST PROGRESS NOTE Patient: Ángela Crowley : 1930: Age: 88 y.o. MedRec: [id number] PCP: Kathleen Escobar MD Admission date: 05/31/2019 [...] and they said got the US by CLIPPATE today and would have him call me after meeting. No call though by 450 pm and the number below no after hours service . Patient's son had told me prior that Dr Teddy Cochran was the person to contact but today victorina murray said that Dr Ayoub to call. I called office (via [employer]) and his office gave me pager zoiesundar prajapati I just paged at 450 pm. I called [facility] and Specimen Preparation Assistant there says have Cardiac MRI but not [...] ent and son. Home to here from [place]. 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 Fell MACHINE WASHER Was trying to sit on walker but [...] walk on Heart Disease CAD TAVR in [place] February 16, 2019 bioprosthetic complicated by moderate [...] er as he spoke to her Prior Specimen Preparation Assistant [place] area, discussed with son in room with rosalie bray if clot and not anticoag risk of worsening of clot CVA CA etc... 5th Dr Pineda reviewed and says would stop Anticoag and I spoke with Dr Velazquez (Ting) and trevor says stop Anticoag that these pressures not unexpected and I told patient this and her son and Dr Cochran office in [place] contacted for their opionion. Did stop Coumadin which is not therapeutic yet anyhow 6th I called Dr Teddy Cochran office and his office has Echo via CLIPPATE but he was to call e and did not. I called Dr Ayoub office and his office provided his pager, no reply yet to p aging him. Addendum (06/11/2019 18:44) Dr Ayoub not answer page so I paged again and am calling office number (now closed but hope to connect to bulldozer press operator) Addendum (06/11/2019 19:00) Did reach Anna [phone] and she confirmed Mega pager number says now online facilitator is Dr Buck and that Doc will be paged and if not reply in 20 minutes call back and the will use cell. I provided by Yesmail for call back. Addendum (06/11/2019 19:43) I [...] latter to get back to me Also MACHINE WASHER her Lasix was 20 mg daily not [...] chronic hypoxic respir failure on [place] O2 MACHINE WASHER 6th she says 2-3 liters at home. Today is 97% on 4 liters. Heme positive stool Hx of EGD for Schtazkis ring EGD Jun 07 Dr Stoddard mild ring dilated, gastroparesis, gastritis PRBC once on Jun 02 son says had Colonoscopy due to bleeding 11 months ago and was clean, says her HGB pricing/signage team member nically prior to TAVR was around 10. 6th Colonoscopy (limited had poor prep) did see the area of concern and has severe divertic ulosis no bleeding no visible cancer and NOT need biopsy, did advance to the descending colo n. 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 Please see progress note and MACHINE WASHER medication list f or any discrepancies. PLEASE NOTE: ~ MACHINE WASHER carvedilol dose 6.25 mg BID (double what was ordered on admit); ~ Hydralazine therapy complete MACHINE WASHER; ~ docusate, fluticasone are PRN not scheduled MACHINE WASHER; ~ added several meds (Maynard, eye drops, Brovana/Pulmicort nebs, tamsulosin); ~ pt [...] MD at the cardiac study Center in [facility]. Procedure was complicated with moderate perivalvu lar [...] regurgitation pre sent. MD Dr Teddy Nova [facility] [place] [address] [phone] (Son has said Dr Cochran and Dr Ayoub in same office but the number below bulldozer press operator did not kn ow of Dr Teddy Cochran) Dr Asha Ayoub [place] office [phone] press 5 and his pager is [phone] Dr Marcus Maguire [phone] (dot meyaddendum tdnorefesh nownorefresh) (dot meyvent) (dot [...] appt Jun 16 and Jun 23 per [facility] Brenna was out on (dot meyaddendum tdnorefesh nownorefresh) (dot meytime meycritical meysign) Bruce Cochran MD 06/12/2019 13:17 [facility] Objective Data Serial weights: Filed Weights: [...] 40 mg 40 mg Oral BID AC Kyeur Carvajal MD 40 mg at 06/12/19 0620 [...] for input(s): IRON, TIBC, PCTSAT, FERRITIN, TSH, [id number], FOLATE in the last 168 hours. Inflammatory [...] ABG No results for input(s): PHART, PO2ART, XFB5QEU, FZZ3HVY, BEART, [id number] in the last 168 h ours. No results for input(s): SPECSOURCE, PHPOCB, PCO2, PO2, HCO3, TCO2, BEART, [id number] in the last 168 hours. Drug of [...] Component Value Units Date/Time Helicobactor pylori Biopsy [[id number]] (Normal) Collected: 06/07/19 0824 Order Status: Completed Lab Status: Final result Updated: 06/09/19 0915 Specimen: Tissue from Stomach, Antrum Helicobacter pylori Ag Negative Culture, Blood [[id number]] Collected: 06/06/19 0849 Order Status: Completed Lab Status: Final result Updated: 06/11/19 0851 Specimen: Peripheral Blood Culture No growth after 5 days incubation. Culture, Blood [[id number]] Collected: 06/06/19 0807 Order Status: Completed Lab [...] this chart may have been created with Silver Push voice recognition software. Occasi onal wrong-word or sound-alike substitutions may have occurred due to the inherent owen itations of voice recognition software. Please read the chart carefully and recognize, using context, where these substitutions have occurred eyerBruce MD - 06/11/2019 4:50 PM PDT [place] HOSPITALIST PROGRESS NOTE Patient: Ángela Crowley : 1930: Age: 88 y.o. MedRec: [id number] PCP: Kathleen Escobar MD Admission date: 05/31/2019 [...] and they said got the US by CLIPPATE today and would have him call me after meeting. No call though by 450 pm and the number below no after hours service . Patient's son had told me prior that Dr Teddy Cochran was the person to contact but today victorina murray said that Dr Ayoub to call. I called office (via [employer]) and his office gave me pager zoiesundar prajapati I just paged at 450 pm. I called [facility] and Specimen Preparation Assistant there says have Cardiac MRI but not [...] ent and son. Home to here from [place]. Dr Velazquez yesterday said not need cardiac [...] disorder Hypertension Moderate protein-calorie malnutrition Cerebral atherosclerosis nursing home (current) use of anticoagulants - clopidogrel (PLAVIX) COPD (chronic obstructive pulmonary disease) Pulmonary hypertension, mild Anemia Coronary artery disease involving the [place] coronary artery of the [place] heart without angina pectoris 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 Fell MACHINE WASHER Was trying to sit on walker but [...] walk on Heart Disease CAD TAVR in [place] February 16, 2019 bioprosthetic complicated by moderate [...] er as he spoke to her Prior Specimen Preparation Assistant [place] area, discussed with son in room with rosalie bray if clot and not anticoag risk of worsening of clot CVA CA etc... 5th Dr Pineda reviewed and says would stop Anticoag and I spoke with Dr Velazquez ([place]ravis) and victorina murray says stop Anticoag that these pressures not unexpected and I told patient this and her son and Dr Cochran office in [place] contacted for their opionion. Did stop Coumadin which is not therapeutic yet anyhow 6th I called Dr Teddy Cochran office and his office has Echo via CLIPPATE but he was to call david murray [...] latter to get back to me Also MACHINE WASHER her Lasix was 20 mg daily not [...] chronic hypoxic respir failure on [place] O2 MACHINE WASHER 6th she says 2-3 liters at home. Today is 97% on 4 liters. Heme positive stool Hx of EGD for Schtazkis ring EGD Jun 07 Dr Stoddard mild ring dilated, gastroparesis, gastritis PRBC once on Jun 02 4th son says had Colonoscopy due to bleeding 11 months ago and was clean, says her HGB pricing/signage team member nically prior to TAVR was around 10. 6th Colonoscopy (limited had poor prep) did see the area of concern and has severe divertic ulosis no bleeding no visible cancer and NOT need biopsy, did advance to the descending colo n. 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 Please see progress note and MACHINE WASHER medication list f or any discrepancies. PLEASE NOTE: ~ MACHINE WASHER carvedilol dose 6.25 mg BID (double what was ordered on admit); ~ Hydralazine therapy complete MACHINE WASHER; ~ docusate, fluticasone are PRN not scheduled MACHINE WASHER; ~ added several meds (Maynard, eye drops, Brovana/Pulmicort nebs, tamsulosin); ~ pt [...] MD at the cardiac study Center in [facility]. Procedure was complicated with moderate perivalvu lar [...] regurgitation pre sent. MD Dr Teddy Nova [facility] [address] [phone] (Son has said Dr Cochran and Dr Ayoub in same office but the number below bulldozer press operator did not kn ow of Dr Teddy Cochran) Dr sAha Ayoub [place] office [phone] press 5 and his pager is [phone] Dr Marcus Maguire [phone] (dot meyaddendum tdnorefesh nownorefresh) (dot meyvent) (dot malnutattest is attestation for malnutrition) Plan Dr Teddy Cochran not call me back Dr Ayoub paged CXR Still on Zosyn Miralax Carb controlled diet Addendum (06/11/2019 18:44) Dr Ayoub not answer page so I paged again and am calling office number (now closed but hope to connect to bulldozer press operator) Addendum (06/11/2019 19:00) Did reach [place] [phone] and she confirmed Mega pager number says now online facilitator is Dr Buck and that Doc will be paged and if not reply in 20 minutes call back and the will use Yesmail. I provided by Yesmail for call back. Addendum (06/11/2019 19:43) I [...] 18:53) RN walked these over Son provided [phone] and I called twice and does not allow me to reach anyone Son provided [phone] Time spent with the patient (of which more than 50% was in counseling and/or coordination t he patient's care as outlined above) in minutes exceeded 50 minutes. Well now more than an hour, well more. Start following BNP HgBA1c with Jun 12 labs CM said prior that Dr Millan will be PCP Has appt Jun 16 and Jun 23 per [facility] Brenna was out on (dot meyaddendum tdnorefesh nownorefresh) (dot meytime meycritical meysign) Bruce Cochran MD 06/11/2019 16:50 [facility] Objective Data Serial weights: Filed Weights: [...] for input(s): IRON, TIBC, PCTSAT, FERRITIN, TSH, [id number], FOLATE in the last 168 hours. Inflammatory [...] ABG No results for input(s): PHART, PO2ART, HQZ1PIN, KCJ4REO, BEART, [id number] in the last 168 h ours. No results for input(s): SPECSOURCE, PHPOCB, PCO2, PO2, HCO3, TCO2, BEART, [id number] in the last 168 hours. Drug of [...] Component Value Units Date/Time Helicobactor pylori Biopsy [[id number]] (Normal) Collected: 06/07/19 0824 Order Status: Completed Lab Status: Final result Updated: 06/09/19 0915 Specimen: Tissue from Stomach, Antrum Helicobacter pylori Ag Negative Culture, Blood [[id number]] Collected: 06/06/19 0849 Order Status: Completed Lab Status: Final result Updated: 06/11/19 0851 Specimen: Peripheral Blood Culture No growth after 5 days incubation. Culture, Blood [[id number]] Collected: 06/06/19 0807 Order Status: Completed Lab [...] this chart may have been created with Silver Push voice recognition software. Occasi onal wrong-word or sound-alike substitutions may have occurred due to the inherent owen itations of voice recognition software. Please read the chart carefully and recognize, using context, where these substitutions have occurred eyer, Bruce Coe MD - 06/10/2019 12:42 PM PDT [place] HOSPITALIST PROGRESS NOTE Patient: Ángela Crowley : 1930: Age: 88 y.o. 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 Fell MACHINE WASHER Was trying to sit on walker but [...] walk on Heart Disease CAD TAVR in [place] February 16, 2019 bioprosthetic complicated by moderate [...] er as he spoke to her Prior Specimen Preparation Assistant [place] area, discussed with son in room with patien t if clot and not anticoag risk of worsening of clot CVA CA etc... 5th Dr Pineda reviewed and says would stop Anticoag and I spoke with Dr Velazquez (Ting) and victorina murray says stop Anticoag that these pressures not unexpected and I told patient this and her son and Dr Cochran office in [place] contacted for their opionion. Did stop Coumadin [...] latter to get back to me Also MACHINE WASHER her Lasix was 20 mg daily not [...] chronic hypoxic respir failure on [place] O2 MACHINE WASHER Heme positive stool Hx of EGD for Schtazkis ring EGD Jun 07 Dr Stoddard mild ring dilated, gastroparesis, gastritis PRBC once on Jun 02 4th son says had Colonoscopy due to bleeding 11 months ago and was clean, says her HGB pricing/signage team member nically prior to TAVR was around 10. 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 Please see progress note and MACHINE WASHER medication list f or any discrepancies. PLEASE NOTE: ~ MACHINE WASHER carvedilol dose 6.25 mg BID (double what was ordered on admit); ~ Hydralazine therapy complete MACHINE WASHER; ~ docusate, fluticasone are PRN not scheduled MACHINE WASHER; ~ added several meds (Maynard, eye drops, Brovana/Pulmicort nebs, tamsulosin); ~ pt [...] MD at the cardiac study Center in [facility]. Procedure was complicated with moderate perivalvu lar [...] regurgitation pre sent. MD Dr Teddy Nova [facility] [address] and [facility] [phone] Dr Asha Velazquez [phone] (dot meyaddendum tdnorefesh nownorefresh) (dot meyvent) (dot [...] meycritical meysign) Bruce Cochran MD 06/10/2019 12:42 [facility] Objective Data Serial weights: Filed Weights: [...] tablet 10 mg 10 mg Oral Nightly Keuyr Carvajal MD 10 mg at 2146 carvedilol [...] for input(s): IRON, TIBC, PCTSAT, FERRITIN, TSH, [id number], FOLATE in the last 168 hours. Inflammatory [...] ABG No results for input(s): PHART, PO2ART, FAP5PUK, ZAH0RER, BEART, Q9NHINTL in the last 168 h ours. No results for input(s): SPECSOURCE, PHPOCB, PCO2, PO2, HCO3, TCO2, BEART, [id number] in the last 168 hours. Drug of [...] Component Value Units Date/Time Helicobactor pylori Biopsy [[id number]] (Normal) Collected: 06/07/19 0824 Order Status: Completed Lab Status: Final result Updated: 06/09/1915 Specimen: Tissue from Stomach, Antrum Helicobacter pylori Ag Negative Culture, Blood [[id number]] Collected: 06/06/19 0849 Order Status: Completed Lab Status: Preliminary result Updated: 06/09/19 0851 Specimen: Peripheral Blood Culture No growth: Monitored continually by instrument for 5 days Culture, Blood [[id number]] Collected: 06/06/19 0807 Order Status: Completed Lab Status: Preliminary result Updated: 06/09/19 0811 Specimen: Blood from Line Culture No growth: Monitored continually by instrument for 5 days Culture, MRSA [[id number]] Collected: 06/04/19 1329 Order Status: Completed Lab Status: Final result Updated: 06/05/19 0730 Specimen: Tissue from Nares Culture 3+ Staphylococcus aureus,Methicillin resistant (MRSA) Comment: *INFECTION PREVENTION ALERT - MRSA* CONTACT PRECAUTIONS REQUIRED. Culture, Blood [[id number]] Collected: 06/04/19 1154 Order Status: Completed Lab Status: Final result Updated: 06/09/19 1211 Specimen: Peripheral Blood Culture No growth after 5 days incubation. Culture, Blood [[id number]] Collected: 06/04/19 1154 Order Status: Completed Lab [...] this chart may have been created with Silver Push voice recognition software. Occasi onal wrong-word or sound-alike substitutions may have occurred due to the inherent owen itations of voice recognition software. Please read the chart carefully and recognize, using context, where these substitutions have occurred eyer, Bruce Coe MD - 06/09/2019 8:31 PM PDT [facility] HOSPITALIST PROGRESS NOTE Patient: Ángela Crowley : 1930: Age: 88 y.o. MedRec: [id number] PCP: Kathleen Escobar MD Admission date: 05/31/2019 [...] disorder Hypertension Moderate protein-calorie malnutrition Cerebral atherosclerosis nursing home (current) use of anticoagulants - clopidogrel (PLAVIX) COPD (chronic obstructive pulmonary disease) Pulmonary hypertension, mild Anemia Coronary artery disease involving the [place] coronary artery of the [place] heart without angina pectoris 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 Fell MACHINE WASHER Was trying to sit on walker but was not locked and fell back and had foot pain 4th xray on May 31 showed possible non displaced fracture involving the base of the 2nd p roximal phalanx extending to the MTP joint LEFT. ER Doc at admit aware as was admitter. Heart Disease CAD TAVR in [place] February 16, 2019 bioprosthetic complicated by moderate [...] er as he spoke to her Prior Specimen Preparation Assistant [facility], discussed with son in room with patien t if clot and not anticoag risk of worsening of clot CVA CA etc... 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 Please see progress note and MACHINE WASHER medication list f or any discrepancies. PLEASE NOTE: ~ MACHINE WASHER carvedilol dose 6.25 mg BID (double what was ordered on admit); ~ Hydralazine therapy complete MACHINE WASHER; ~ docusate, fluticasone are PRN not scheduled MACHINE WASHER; ~ added several meds (Maynard, eye drops, Brovana/Pulmicort nebs, tamsulosin); ~ pt [...] MD at the cardiac study Center in [facility]. Procedure was complicated with moderate perivalvu lar [...] regurgitation pre sent. MD Dr Teddy Nova [facility] [address] and [facility] [phone] Dr Asha Velazquez [phone] (dot meyaddendum tdnorefesh nownorefresh) (dot meyvent) (dot [...] meycritical meysign) Bruce Cochran MD 06/09/2019 20:31 [facility] Objective Data Serial weights: Filed Weights: [...] 20 mg 20 mg Oral Daily David Wu hydrALAZINE (APRESOLINE) tablet 10 mg 10 [...] for input(s): IRON, TIBC, PCTSAT, FERRITIN, TSH, [id number], FOLATE in the last 168 hours. Inflammatory [...] ABG No results for input(s): PHART, PO2ART, KVK5URT, NRR0EHV, BEART, Z3OSUCRT in the last 168 h ours. No results for input(s): SPECSOURCE, PHPOCB, PCO2, PO2, HCO3, TCO2, BEART, [id number] in the last 168 hours. Drug of [...] Component Value Units Date/Time Helicobactor pylori Biopsy [[id number]] (Normal) Collected: 06/07/19 0824 Order Status: Completed Lab Status: Final result Updated: 06/09/19 0915 Specimen: Tissue from Stomach, Antrum Helicobacter pylori Ag Negative Culture, Blood [[id number]] Collected: 06/06/19 0849 Order Status: Completed Lab Status: Preliminary result Updated: 06/09/19 0851 Specimen: Peripheral Blood Culture No growth: Monitored continually by instrument for 5 days Culture, Blood [[id number]] Collected: 06/06/19 0807 Order Status: Completed Lab Status: Preliminary result Updated: 06/09/19 0811 Specimen: Blood from Line Culture No growth: Monitored continually by instrument for 5 days Culture, MRSA [[id number]] Collected: 06/04/19 1329 Order Status: Completed Lab Status: Final result Updated: 06/05/19 0730 Specimen: Tissue from Nares Culture 3+ Staphylococcus aureus,Methicillin resistant (MRSA) Comment: *INFECTION PREVENTION ALERT - MRSA* CONTACT PRECAUTIONS REQUIRED. Culture, Blood [[id number]] Collected: 06/04/19 1154 Order Status: Completed Lab Status: Final result Updated: 06/09/19 1211 Specimen: Peripheral Blood Culture No growth after 5 days incubation. Culture, Blood [[id number]] Collected: 06/04/19 1154 Order Status: Completed Lab [...] this chart may have been created with Silver Push voice recognition software. Occasi onal wrong-word or sound-alike substitutions may have occurred due to the inherent owen itations of voice recognition software. Please read the chart carefully and recognize, using context, where these substitutions have occurred YAMeyerBruce MD - 06/08/2019 4:45 PM PDT [place], [place] HOSPITALIST PROGRESS NOTE Patient: Ángela Crowley : 1930: Age: 88 y.o. MedRec: [id number] PCP: Kathleen Escobar MD Admission date: 05/31/2019 Hospital day # : 8 Physician author: Bruce Cochran MD Today: 06/08/2019 Subjective CC Admit May 31 after falling Chronic SOB Says Dr Carvajal told her she can go home on Friday Wants ceja out say was on Flomax MACHINE WASHER to help void MACHINE WASHER ROS See above Objective Exam General Alert [...] disorder Hypertension Moderate protein-calorie malnutrition Cerebral atherosclerosis nursing home (current) use of anticoagulants - clopidogrel (PLAVIX) COPD (chronic obstructive pulmonary disease) Pulmonary hypertension, mild Anemia Coronary artery disease involving the [place] coronary artery of the [place] heart without angina pectoris 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 Please see progress note and MACHINE WASHER medication list f or any discrepancies. PLEASE NOTE: ~ MACHINE WASHER carvedilol dose 6.25 mg BID (double what was ordered on admit); ~ Hydralazine therapy complete MACHINE WASHER; ~ docusate, fluticasone are PRN not scheduled MACHINE WASHER; ~ added several meds (Maynard, eye drops, Brovana/Pulmicort nebs, tamsulosin); ~ pt [...] meycritical meysign) Bruce Cochran MD 06/08/2019 16:45 [facility] Objective Data Serial weights: Filed Weights: [...] mg 6.25 mg Oral BID WC Keyur Carvajla MD 6.25 mg at 0 06/08/19 0900 [...] for input(s): IRON, TIBC, PCTSAT, FERRITIN, TSH, [id number], FOLATE in the last 168 hours. Inflammatory [...] ABG No results for input(s): PHART, PO2ART, PHT6BRE, REH4FWY, BEART, [id number] in the last 168 h ours. No results for input(s): SPECSOURCE, PHPOCB, PCO2, PO2, HCO3, TCO2, BEART, HUCD3PAL in the last 168 hours. Drug of [...] Component Value Units Date/Time Helicobactor pylori Biopsy [[id number]] Collected: 06/07/19 0824 Order Status: Sent Lab Status: In process Updated: 06/07/19 0845 Specimen: Tissue from Stomach, Antrum Culture, Blood [[id number]] Collected: 06/06/19 0849 Order Status: Completed Lab Status: Preliminary result Updated: 06/06/192050 Specimen: Peripheral Blood Culture No growth: Monitored continually by instrument for 5 days Culture, Blood [[id number]] Collected: 06/06/19 0807 Order Status: Completed Lab Status: Preliminary result Updated: 06/06/192010 Specimen: Blood from Line Culture No growth: Monitored continually by instrument for 5 days Culture, MRSA [[id number]] Collected: 06/04/19 1329 Order Status: Completed Lab Status: Final result Updated: 06/05/19 0730 Specimen: Tissue from Nares Culture 3+ Staphylococcus aureus,Methicillin resistant (MRSA) Comment: *INFECTION PREVENTION ALERT - MRSA* CONTACT PRECAUTIONS REQUIRED. Culture, Blood [[id number]] Collected: 06/04/19 1154 Order Status: Completed Lab Status: Preliminary result Updated: 06/07/19 1211 Specimen: Peripheral Blood Culture No growth: Monitored continually by instrument for 5 days Culture, Blood [[id number]] Collected: 06/04/19 1154 Order Status: Completed Lab Status: Preliminary result Updated: 06/07/19 121 Specimen: Peripheral Blood Culture No growth: Monitored continually by instrument for 5 days Culture, Blood [[id number]] Collected: 06/02/19 1915 Order Status: Completed Lab Status: Final result Updated: 06/07/191920 Specimen: Peripheral Blood Culture No growth after 5 days incubation. Culture, Blood [[id number]] Collected: 06/02/191914 Order Status: Completed Lab Status: [...] this chart may have been created with Silver Push voice recognition software. Occasi onal wrong-word or sound-alike substitutions may have occurred due to the inherent owen itations of voice recognition software. Please read the chart carefully and recognize, using context, where these substitutions have occurred arker, Keyur Murray MD - 06/07/2019 5:24 PM PDT [facility] Hospitalist Progress Note [...] a.m. stopping the hydrocortisone. 2. 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 Patient had TAVR in 02/04 and would have had coronary angiography prior to procedure. We are continue to work on obtaining any results of coronary arteriography.She was referred for her TAVR from [facility] in [place] and medical records is working to try [...] daily and will follow Hemoccults.She will need oroeco at the time of discharge to have protOrca Digital shooting for an INR no greater than [...] as outlined above. Keyur Carvajal 06/07/2019 17:24 [facility] Portions of this chart may have been created with Silver Push voice recognition software. Occasi onal wrong-word or [...] Murray MD - 10/2018 7:45 PM PDT [facility] Hospitalist Progress Note [...] have shown clinical improvement. 2. 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 Keyur Caravjal 06/06/2019 19:45 [facility] Portions of this chart may have been created with Silver Push voice recognition software. Occasi onal wrong-word or sound-alike substitutions may have occurred due to the inherent owen itations of voice recognition software. Please read the chart carefully and recognize, using context, where these substitutions have occurred arKeyur wallace MD - 0 06/05/2019 7:53 PM PDT [facility] Hospitalist Progress Note [...] mg every 8 hours. 2. 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 Keyur Carvajal 06/06/2019 19:53 [facility] Portions of this chart may have been created with Silver Push voice recognition software. Occasi onal wrong-word or [...] medication list or bottles ? MAR from [facility] facility: ? Doctor's office: ? Pharmacy list names: [facility] ? [place] State Prescription Monitoring Program ? [place] State Prescription Monitoring Program ? [employer] insurance reported information ? Care Everywhere ? Outside Information ? Other sources: Verbal interview with son, Yadiel, who manages patient's medications Vaccines up to date? Yes No Unsure Influenza x Pneumococcal x Tdap x Shingles x Noted medications discrepancies or medication-related issues: Dosage/Form/Frequency change: MACHINE WASHER Medication: Prior to Admission Sig: Correct Dosage/Form: [...] mL by nebulization twice daily Per son, blood bank supervisor instructed him to mix with Budesonide marcelino Budesonide 0.5 mg/2 mL neb marcelino 2 mL by nebulization twice daily Per son, blood bank supervisor instructed him to mix with Arformoterol marcelino [...] Prior to Admission Sig: Patient taking differently MACHINE WASHER as: Alprazolam 0.25 mg tab 1 tab [...] 1 tab by mouth daily Son states barrel repairer lowered dose ~8 months ago. Best possible MACHINE WASHER medication list after pharmacy review: PT REPORTED [...] performed and electronically signed by Ly Guido, Drill Sergeant 11:34 Reviewed by Autumn Sutherland, PharmD 06/05/2019 [...] MD - 06/04/2019 11:2 9 AM PDT [facility] Hospitalist Progress Note [...] improves with this . 2. 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 Keyur Carvajal 06/04/2019 11:29 [facility] Portions of this chart may have been created with Silver Push voice recognition software. Occasi onal wrong-word or [...] Cardiovascular Palp/Percussion: PMI in 5th ICS at [facility]; no lifts, thrills, palp S3 or [...] waves in leads V4-6:cannot rule out lateral CA age indeterminant Cannot rule out Inferior infarct , age undetermined [address] elevation in leads V4-6:consider ischemia/infarction No previous ECGs available Confirmed by UMESH JOSEPH, LEONIDAS ([id number]) on 06/01/2019 5:26:47 AM Which is compared to today's ECG 05/31/2019: COMMERCIAL ESCROW OFFICER/BLACK LEATHER TRIMMER: 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 Potential bioprosthetic aortic valve thrombosis A. Post TAVR with 23 mm Edward Sapian S3 valve on 02/16/2019 by Asha Ayoub MD at the cardiac study Center in [facility]. Procedure was complicated with modera te perivalvular [...] is i n a class I of [place] [employer] functional class. There is no fluid retention on physical examination. 2. Coronary artery disease A. Left heart cath in [facility] on 02/16/2019 suggest noncritical CAD. However, r eport is not available. B. Troponin earlier was elevated at 0.13, however, patient has no chest pain no evidence of heart failure. C. She is treated appropriately with combination of aspirin, statin and beta-barbara. 3. Essential hypertension A. Blood pressure this morning is well controlled. 4. Anemia with GI bleeding A. She was admitted to [facility] on 05/31/2019 because of falls and feeling [...] both accurate and complete. Clint Jovel MD [facility] 06/04/2019 8:10 Portions of this chart may have been created with Silver Push voice recognition software. Occasi onal wrong-word or sound-alike substitutions may have occurred due to the inherent owen itations of voice recognition software. Please read the chart carefully and recognize, using context, where these substitutions have occurred. Keyur Sharma MD - 06/03/2019 9:28 PM PDT [facility]G Hospitalist Progress Note Ángela Crowley is a 88 y.o. female ASSESSMENT and PLAN: 1. 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 Patient had TAVR in 02/04 and would have had coronary angiography prior to procedure. [facility] queried today and has no record of this. She was referred from [facility](Dr Cochran) and will contact the [...] as outlined above. Keyur Carvajal 06/03/2019 21:30 [facility] Portions of this chart may have been created with Silver Push voice recognition software. Occasi onal wrong-word or sound-alike substitutions may have occurred due to the inherent owen itations of voice recognition software. Please read the chart carefully and recognize, using context, where these substitutions have occurred arker, Keyur Murray MD - 0 06/02/2019 6:23 PM PDT [facility] Hospitalist Progress Note Ángela Crowley is a 88 y.o. female ASSESSMENT and PLAN: 1. 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 Coronary angiography was requested from [facility] but this compon ent was not received. [...] as outlined above. Keyur Carvajal 06/02/2019 18:23 [facility] Portions of this chart may have been created with Silver Push voice recognition software. Occasi onal wrong-word or sound-alike substitutions may have occurred due to the inherent owen itations of voice recognition software. Please read the chart carefully and recognize, using context, where these substitutions have occurred arker, Keyur Murray MD - 0 06/01/2019 6:47 PM PDT [facility] Hospitalist Progress Note Ángela Crowley is a 88 y.o. female ASSESSMENT and PLAN: 1. 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 2. Anemia. Patient has multiple etiologies. [...] as outlined above. Keyur Carvajal 06/02/2019 18:47 [facility] Portions of this chart may have been created with Silver Push voice recognition software. Occasi onal wrong-word or [...] | | 2019 | Visit | | SPRINKLER INSTALLER [address] | | | | | | [place] | | | | | | [address] | | | | | | | | +--------+ + + + + | 04/11/ | Appointment | Radiology | Shawn Michael | | | 2019 | | | MD [address] | | | | | | [address] [place] | | | | | | [place] [address] | | | | | | [phone] | | | | | | | | +--------+ + + + + | 04/13/ | Office | Cardiology | Shawn Michael | | | 2019 | Visit | | MD [address] | | | | | | [address] [place] | | | | | | [place] [id number] | | | | | | [phone] | | | | | | | [...] | + +--------+ + + + | SECURITY SYSTEM TECHNICIAN REPORT - | | 02/16/2019 | | [...] [address] | [place] | [phone] | | [facility] | | [address] | | | - LABORATORY | | [...] [address] | [place] | [phone] | | [facility] | | [address] | | | - LABORATORY | | [...] | | Average | | | STCedric WEEKS | | | Glucose | | [...] [address] | [place] | [phone] | | [facility] | | [address] | | | - LABORATORY | | [...] | [address] | [place], [place] | [phone] | | [facility] | | [address] | | | - LABORATORY | | [...] | | | | | mg/dL | [facility] | | | | | | MEDICAL | | | | | | CENTER - | | | | | | LABORATORY | | + + + + + + | eGFR if not | >60Comment: GLOMERULAR | >=60 | [facility] | | | | FILTRATION | mL/min/1.73m2 | [facility] | | | [place] | RATE,ESTIMATED | | MEDICAL | | | | mL/min/1.39o1Onee than | | CENTER - | | [...] | | | | mg/dL | [facility] | | | | | [...] [address] | [place] | [phone] | | [facility] | | [address] | | | [...] + | [facility] | [address] | [place] | [phone] | | [facility] | | [address] | | | - LABORATORY | | [...] | [address] | [place] | [phone] | | [facility] | | [address] | | | - LABORATORY | | [...] [address] | [place] | [phone] | | [facility] | | [address] | | | - LABORATORY | | [...] [address] | [place] | [phone] | | [facility] | | [address] | | | - LABORATORY | | | | + + + + + COLONOSCOPY (06/11/2019 7:45 AM PDT) + + | Specimen | + + | | + + + + -+ | Narrative | Performed At | + + -+ | | [facility] | | GastroenterologyPatient Name: Ángela Montanoedarmando Date: 06/11/2019 | [facility] | | 7:45 AMMRN: [id number] #: [id number] of : | | | 1930Admit Type: InpatientAge: 88Room: Endo Room 1Gender: | | | FemaleNote Status: FinalizedAttending MD: Edwin Stoddard , | | | MDProcedure: ColonoscopyIndications: Abnormal CT | | | of the GI tractProviders: Edwin Stoddard MD, Lorena Morrell, | | | RN, Ailin Bui, Die Sinker Apprentice, Yahir Moy | | | MD Sravan [...] the anesthesiologist and the | | | hvac maintenance technician in the endoscopy suite. Mental Status [...] AMScope Out: 8:12:08 AM | | | [facility], [address] [place] [address] | | | [address] | | | - Stricture in the [...] |Scope Out: 8:12:08 AM | | | [facility], [address] [place] [address] | | | [address] | | + + -+ + +---------+ + + | Performing | Address | City/State/[facility] | Phone Number | | Organization [...] | [address] | [place] | [phone] | | [facility] | | [address] | | | - LABORATORY | | [...] [facility] | | | | | | STCerdic WEEKS | | | | | | [...] | | GLOMERULAR FILTRATION | mL/min/1.73m2 | [facility] | | | [place] | RATE,ESTIMATED | | MEDICAL | | | | mL/min/1.71p9Fdvp than | | CENTER - | | [...] + | [facility] | [address] | [place] | [phone] | | [facility] | | [address] | | | - LABORATORY | | [...] [address] | [place] | [phone] | | [facility] | | [address] | | | - LABORATORY | | [...] [address] | [place] | [phone] | | [facility] | | [address] | | | - LABORATORY | | [...] + | [facility] | [address] | [place] | [phone] | | [facility] | | [address] | | | - LABORATORY | | [...] + | [facility] | [address] | [place] | [phone] | | [facility] | | [address] | | | - LABORATORY | | [...] [address] | [place] | [phone] | | [facility] | | [address] | | | - LABORATORY | | [...] [address] | [place] | [phone] | | [facility] | | [address] | | | - LABORATORY | | [...] | mL/min/1.73m2 | [facility] | | | [place] | RATE,ESTIMATED | | MEDICAL | | | | mL/min/1.85h2Ieii than | | CENTER - | | [...] [address] | [place] | [phone] | | [facility] | | [address] | | | - LABORATORY | | [...] [address] | [place] | [phone] | | [facility] | | [address] | | | - LABORATORY | | [...] [address] | [place] | [phone] | | [facility] | | [address] | | | - LABORATORY | | [...] [address] | [place] | [phone] | | [facility] | | [address] | | | - LABORATORY | | [...] [address] | [place] | [phone] | | [facility] | | [address] | | | - LABORATORY | | [...] [address] | [place] | [phone] | | [facility] | | [address] | | | - LABORATORY | | [...] | mL/min/1.73m2 | [facility] | | | [place] | RATE,ESTIMATED | | MEDICAL | | | | mL/min/1.49d2Rdwx than | | CENTER - | | [...] [address] | [place] | [phone] | | [facility] | | [address] | | | - LABORATORY | | [...] [address] | [place] | [phone] | | [facility] | | [address] | | | - [...] + | [address] | [address] | [place] | [phone] | | [facility] | | [address] | | | - LABORATORY | | [...] [address] | [place] | [phone] | | [facility] | | [address] | | | - LABORATORY | | [...] + | [facility] | [address] | [place] | [phone] | | [facility] | | [address] | | | - LABORATORY | | [...] [address] | [place] | [phone] | | [facility] | | [address] | | | - LABORATORY | | [...] [address] | [place] | [phone] | | [facility] | | [address] | | | - LABORATORY | | [...] | [address] | [place], [place] | [phone] | | [facility] | | [address] | | | - LABORATORY | | [...] [address] | [place] | [phone] | | [facility] | | [address] | | | - LABORATORY | | [...] + | [facility] | [address] | [place] | [phone] | | [facility] | | [address] | | | - LABORATORY | | [...] [address] | [place] | [phone] | | [facility] | | [address] | | | - LABORATORY | | [...] [address] | [place] | [phone] | | [facility] | | [address] | | | - LABORATORY | | [...] + | [facility] | [address] | [place] | [phone] | | [facility] | | [address] | | | - LABORATORY | | [...] | [address] | [place], [place] | [phone] | | [facility] | | [address] | | | - LABORATORY | | | | + + + + + EGD (06/07/2019 7:41 AM PDT) + + | Specimen | + + | | + + + + -+ | Narrative | Performed At | + + -+ | | [facility] | | GastroenterologyPatient Name: Ángela Montanoedarmando Date: 06/07/2019 | [facility]OVATION | | 7:41 AMMRN: [id number] #: [id number] of : | | | 1930Admit Type: InpatientAge: 88Room: Endo Room 1Gender: | | | FemaleNote Status: FinalizedAttending MD: Edwin Stoddard , | | | MDProcedure: Upper GI endoscopyIndications: | | | Esophageal dysphagia, Occult blood in stoolProviders: | | | Edwin Stoddard MD, Ivett Alexandra RN, Marita | | | Stanley Phillip, Die Sinker Apprentice, Hermilo Alcocer (Anesthesia | | | Staff)Medicines: [...] the anesthesiologist and the | | | hvac maintenance technician in the endoscopy suite. Mental Status [...] AMScope Out: 8:29:07 | | | AM [facility], [address] [facility] | | | [place] [address] | | | the duodenum, area of [...] |Scope Out: 8:29:07 AM | | | [facility], [address] [facility], [place], [place] | | | [address] | | + + -+ + +---------+ [...] + | [facility] | [address] | [place] | [phone] | | [facility] | | [address] | | | - LABORATORY | | [...] mL/min/1.73m2 | [facility] | | | [facility] | RATE,ESTIMATED | | MEDICAL | | | | mL/min/1.27k0Ldkl than | | CENTER - | | [...] [address] | [place] | [phone] | | [facility] | | [address] | | | - LABORATORY | | [...] [address] | [place] | [phone] | | [facility] | | [address] | | | - LABORATORY | | [...] [address] | [place] | [phone] | | [facility] | | [address] | | | - LABORATORY | | [...] [address] | [place] | [phone] | | [facility] | | [address] | | | - LABORATORY | | [...] [address] | [place] | [phone] | | [facility] | | [address] | | | - LABORATORY | | [...] [address] | [place] | [phone] | | [facility] | | [address] | | | - LABORATORY | | [...] + | [facility] | [address] | [place] | [phone] | | [facility] | | [address] | | | - LABORATORY | | [...] + | [facility] | [address] | [place] | [phone] | | [facility] | | [address] | | | - LABORATORY | | [...] [address] | [place] | [phone] | | [facility] | | [address] | | | - LABORATORY | | [...] + | [facility] | [address] | [place] | [phone] | | [facility] | | [address] | | | - LABORATORY | | [...] | Consistent with previous | | [facility] | | | | results. | [...] [address] | [place] | [phone] | | [facility] | | [address] | | | - LABORATORY | | [...] + | [facility] | [address] | [place] | [phone] | | [facility] | | [address] | | | - LABORATORY | | [...] + | [facility] | [address] | [place] | [phone] | | [facility] | | [address] | | | - LABORATORY | | [...] | [address] | [place] | [phone] | | [facility] | | [address] | | | - LABORATORY | | [...] + | [facility] | [address] | [place] | [phone] | | [facility] | | [address] | | | - LABORATORY | | [...] mL/min/1.73m2 | [facility] | | | [place] | RATE,ESTIMATED | | MEDICAL | | | | mL/min/1.81d3Tnpj than | | CENTER - | | [...] [address] | [place] | [phone] | | [facility] | | [address] | | | - LABORATORY | | [...] [address] | [place] | [phone] | | [facility] | | [address] | | | - LABORATORY | | [...] [address] | [place] | [phone] | | [facility] | | [address] | | | - LABORATORY | | [...] + | [facility] | [address] | [place] | [phone] | | [facility] | | [address] | | | - LABORATORY | | [...] [address] | [place] | [phone] | | [facility] | | [address] | | | - LABORATORY | | [...] [address] | [place] | [phone] | | [facility] | | [address] | | | - LABORATORY | | [...] [address] | [place] | [phone] | | [facility] | | [address] | | | - LABORATORY | | [...] + | [facility] | [address] | [place], [place] | [phone] | | [facility] | | [address] | | | - LABORATORY | | [...] mL/min/1.73m2 | [facility] | | | [place] | RATE,ESTIMATED | | MEDICAL | | | | mL/min/1.66x1Wjla than | | CENTER - | | [...] | [address] | [place], [place] | [phone] | | [facility] | | [address] | | | - LABORATORY | | [...] 21 | 9 - 23 mg/dL | [facility] | | | | | | [facility] | | | | | | MEDICAL | | | | | | CENTER - | | | | | | LABORATORY | | + + + + + + | Creatinine | 0.60 | 0.55 - 1.02 | [facility] | | | | | mg/dL | [facility] | | | | | | MEDICAL | | | | | | CENTER - | | | | | | LABORATORY | | + + + + + + | eGFR if not | >60Comment: GLOMERULAR | >=60 | [facility] | | | | FILTRATION | mL/min/1.73m2 | [facility] | | | [place] | RATE,ESTIMATED | | MEDICAL | | | | mL/min/1.18d1Hakh than | | CENTER - | | [...] [address] | [place] | [phone] | | [facility] | | [address] | | | - LABORATORY | | [...] + | [facility] | [address] | [place] | [phone] | | [facility] | | [address] | | | - LABORATORY | | [...] + | [facility] | [address] | [place] | [phone] | | [facility] | | [address] | | | - LABORATORY | | [...] ampullary mucinous neoplasms. The largest | | ozgeiykd15 mm.Catheter in the bladder. No visible balloon. [...] + | [facility] | [address] | [place] | [phone] | | [facility] | | [address] | | | - LABORATORY | | [...] - 1.030 | [facility] | | | [place], | | | [facility] | | [...] [address] | [place] | [phone] | | [facility] | | [address] | | | - LABORATORY | | [...] ST. | [address] | [place], [place] | [phone] | | [facility] | | [address] | | | - LABORATORY | | [...] | 0.91 | 0.55 - 1.02 | [facility] | | | | | mg/dL | [facility] | | | | | | MEDICAL | | | | | | CENTER - | | | | | | LABORATORY | | + + + + + + | eGFR if not | 58 (L)Comment: | >=60 | [facility] | | | | GLOMERULAR FILTRATION | mL/min/1.73m2 | [facility] | | | [place] | RATE,ESTIMATED | | MEDICAL | | | | mL/min/1.99c9Wtyo than | | CENTER - | | [...] [address] | [place] | [phone] | | [facility] | | [address] | | | - LABORATORY | | [...] | [address] | [place], [place] | [phone] | | [facility] | | [address] | | | - LABORATORY | | [...] | | | | WBCs | [facility] | | | | [...] [address] | [place] | [phone] | | [facility] | | [address] | | | - LABORATORY | | [...] [address] | [place] | [phone] | | [facility] | | [address] | | | - LABORATORY | | [...] | [address] | [place] | [phone] | | [facility] | | [address] | | | - LABORATORY | | [...] + | [facility] | [address] | [place] | [phone] | | [facility] | | [address] | | | - LABORATORY | | [...] + | [facility] | [address] | [place], [place] | [phone] | | [facility] | | [address] | | | - LABORATORY | | [...] [address] | [place] | [phone] | | [facility] | | [address] | | | - LABORATORY | | [...] mL/min/1.73m2 | [facility] | | | [place] | RATE,ESTIMATED | | MEDICAL | | | | mL/min/1.34g2Bqwe than | | CENTER - | | [...] | | | | mg/dL | [facility] | | | | [...] [address] | [place] | [phone] | | [facility] | | [address] | | | - LABORATORY | | [...] + | [facility] | [address] | [place] | [phone] | | [facility] | | [address] | | | - LABORATORY | | [...] [address] | [place] | [phone] | | [facility] | | [address] | | | - LABORATORY | | [...] | | POC | | | [facility] | | | | | [...] | + + + + + | [facility] | [address] | [place] | [phone] | | [facility] | | [address] | | | - LABORATORY | | [...] + | [facility] | [address] | [place] | [phone] | | [facility] | | [address] | | | - LABORATORY | | [...] + | [facility] | [address] | [place] | [phone] | | [facility] | | [address] | | | - LABORATORY | | [...] [address] | [place] | [phone] | | [facility] | | [address] | | | - LABORATORY | | [...] 19 | 9 - 23 mg/dL | [facility] | | | | | | [facility] | | | | | | MEDICAL | | | | | | CENTER - | | | | | | LABORATORY | | + + + + + + | Creatinine | 0.78 | 0.55 - 1.02 | [facility] | | | | | mg/dL | [facility] | | | | | | MEDICAL | | | | | | CENTER - | | | | | | LABORATORY | | + + + + + + | eGFR if not | >60Comment: GLOMERULAR | >=60 | [facility] | | | | FILTRATION | mL/min/1.73m2 | [facility] | | | [place] | RATE,ESTIMATED | | MEDICAL | | | | mL/min/1.10x3Fapu than | | CENTER - | | [...] [address] | [place] | [phone] | | [facility] | | [address] | | | - LABORATORY | | [...] | [address] | [place], [place] | [phone] | | [facility] | | [address] | | | - LABORATORY | | [...] [address] | [place] | [phone] | | [facility] | | [address] | | | - LABORATORY | | [...] + | [facility] | [address] | [place] | [phone] | | [facility] | | [address] | | | - LABORATORY | | [...] [address] | [place] | [phone] | | [facility] | | [address] | | | - LABORATORY | | [...] + + | Performing | Address | City/State[facility] | Phone Number | | Organization | | | | + + + + + | [facility] | [address] | [place] | [phone] | | [facility] | | [address] | | | - LABORATORY | | [...] + | [facility] | [address] | [place] | [phone] | | [facility] | | [address] | | | - LABORATORY | | [...] [address] | [place] | [phone] | | [facility] | | [address] | | | - LABORATORY | | [...] [address] | [place] | [phone] | | [facility] | | [address] | | | - LABORATORY | | [...] + | [facility] | [address] | [place] | [phone] | | [facility] | | [address] | | | - LABORATORY | | | | + + + + + POC Glucose (06/02/2019 6:24 AM PDT) + +-------+ + + + | Component | Value | Ref Range | Performed | Pathologist | | | | | At | Signature | + +-------+ + + + | Glucose, | 82 | 70 - 109 mg/dL | [facility] [...] [address] | [place] | [phone] | | [facility] | | [address] | | | - LABORATORY | | [...] + | [facility] | [address] | [place] | [phone] | | [facility] | | [address] | | | - LABORATORY | | [...] | [address] | [place] | [phone] | | [facility] | | [address] | | | - LABORATORY | | | | + + + + + Red Blood Cells (PRBC) - Crossmatch (06/02/2019 12:03 AM PDT) + + + + + + | Component | Value | Ref Range | Performed | Pathologist | | | | | At | Signature | + + + + + + | Product | [id number] | | [facility] | | | Code | | | [facility] | | | | | | MEDICAL | | | | | | CENTER - | | | | | | BLOOD BANK | | + + + + + + | UNIT # | [id number] | | [facility] | | | | [...] + + + + | Blood | [id number] | | [facility] | | | Product [...] [place] | | | [facility] | | [address] | | | - BLOOD BANK | [...] + | [facility] | [address] | [place] | [phone] | | [facility] | | [address] | | | - LABORATORY | | [...] ST. | [address] | [place], [place] | [phone] | | [facility] | | [address] | | | - LABORATORY | | [...] | mL/min/1.73m2 | [facility] | | | [place] | RATE,ESTIMATED | | MEDICAL | | | | mL/min/1.74k8Sebw than | | CENTER - | | [...] [address] | [place] | [phone] | | [facility] | | [address] | | | - LABORATORY | | [...] [place] | | | [facility] | | [address] | | | - BLOOD BANK | [...] [address] | [place] | [phone] | | [facility] | | [address] | | | - LABORATORY | | [...] + | [facility] | [address] | [place] | [phone] | | [facility] | | [address] | | | - LABORATORY | | [...] [address] | [place] | [phone] | | [facility] | | [address] | | | - LABORATORY | | [...] [address] | [place] | [phone] | | [facility] | | [address] | | | - LABORATORY | | [...] New | 120 - 246 U/L | [facility] | | | | method in use [...] [address] | [place] | [phone] | | [facility] | | [address] | | | - LABORATORY | | [...] | [address] | [place] | [phone] | | [facility] | | [address] | | | - LABORATORY | | [...] [address] | [place] | [phone] | | [facility] | | [address] | | | - LABORATORY | | [...] + | [facility] | [address] | [place] | [phone] | | [facility] | | [address] | | [...] | | | | | | [place] | | | | | + + [...] | | | | | | [place] | | | | | + + [...] [address] | [place] | [phone] | | [facility] | | [address] | | | - LABORATORY | | [...] [address] | [place] | [phone] | | [facility] | | [address] | | | - LABORATORY | | [...] [address] | [place] | [phone] | | [facility] | | [address] | | | - LABORATORY | | [...] [address] | [place] | [phone] | | [facility] | | [address] | | | - LABORATORY | | [...] | | | | Comment:Reference | | [facility] | | | | Ranges: [...] | | | | | | [employer] | | | | | [...] + | [facility] | [address] | [place] | [phone] | | [facility] | | [address] | | | - LABORATORY | | [...] [address] | [place] | [phone] | | [facility] | | [address] | | | - LABORATORY | | [...] | mL/min/1.73m2 | [facility] | | | [place] | RATE,ESTIMATED | | MEDICAL | | | | mL/min/1.29y4Chrg than | | CENTER - | | [...] [address] | [place] | [phone] | | [facility] | | [address] | | | - LABORATORY | | [...] associated prominence of the ventricles. There are xivd-yy-vuggpxtr | | | scattered regions of periventricular [...] associated prominence of the ventricles. There are acvy-tr-uxwnhdeh | | scattered regions of periventricular and [...] [address] | [place] | [phone] | | [facility] | | [address] | | | - LABORATORY | | [...] | | | | | | [employer] | | | | | [...] | [address] | [place] | [phone] | | [facility] | | [address] | | | - LABORATORY | | [...] [address] | [place] | [phone] | | [facility] | | [address] | | | - LABORATORY | | [...] mL/min/1.73m2 | [facility] | | | [place] | | | MEDICAL | | | [...] [address] | [place] | [phone] | | [facility] | | [address] | | | - LABORATORY | | [...] - 1.030 | [facility] | | | [place], | | | [facility] | | [...] [address] | [place] | [phone] | | [facility] | | [address] | | | - LABORATORY | | [...] + | [facility] | [address] | [place] | [phone] | | [facility] | | [address] | | | - LABORATORY | | [...] + | [facility] | [address] | [place] | [phone] | | [facility] | | [address] | | | - LABORATORY | | [...] [address] | [place] | [phone] | | [facility] | | [address] | | | - LABORATORY | | [...] | | | | | | [employer] | | | | | [...] [address] | [place] | [phone] | | [facility] | | [address] | | | - LABORATORY | | [...] [address] | [place] | [phone] | | [facility] | | [address] | | | - LABORATORY | | [...] as of December 02, | | [facility] | | | | 2019. [...] + | [facility] | [address] | [place] | [phone] | | [facility] | | [address] | | | - LABORATORY | | [...] | mL/min/1.73m2 | [facility] | | | [place] | RATE,ESTIMATED | | MEDICAL | | | | mL/min/1.91h7Udho than | | CENTER - | | [...] [address] | [place] | [phone] | | [facility] | | [address] | | | - LABORATORY | | [...] + | [facility] | [address] | [place] | [phone] | | [facility] | | [address] | | | - LABORATORY | | [...] [address] | [place] | [phone] | | [facility] | | [address] | | | - LABORATORY | | [...] | | | | | | lateral CA age | | | | | | [...] | | | | LEONIDAS CALVO MD ([id number]) | | | | | | on [...] unspecified provider. | | + + + SECURITY SYSTEM TECHNICIAN REPORT - EXTERNAL SCAN (02/16/2019 12:00 AM [...] | | | | | | use Maynard 10/325 if ordered. If | | | [...] | | | | | | | 5591-5755 Use NIGHT DOSE for | | | | | | | doses scheduled: HS, 3AM, | | | | | | | Nighttime 9749-8338 If the BG is | | | [...] | | | | | dose on [facility] 06/03/19 at 2100 | | | [...] medications/reasons PHARMACY | | | CONSULT, Starting [facility] 06/10/19 at | | | 1524, [...] | | | | First dose on [facility] 06/12/19 at 0900, | | AM PDT [...]
--- OUTSIDE RECORDS SUMMARY | ~2020-03-14 | XMS | Encounter Summary ---
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
--- OUTSIDE RECORDS SUMMARY | ~2020-03-14 | XMS | Encounter Summary ---
Demographics + + + | Address | [address] | | | [place] [address] | + + + | Home Phone [...] Team Providers + +------+ + | Care Vending Machine Attendant Name | Role | Phone | [...] | | [facility] | [address] [place] [address] | | | | | [place] [address] | [place] [address] | | | | | [phone] | | | | | | | [...] | | 2019 | Visit | | [employer] [address] | | | | | | [place] | | | | | | [address] | | | | | | | | +--------+ + + + + | 04/11/ | Appointment | Radiology | Shawn Michael | | | 2019 | | | MD [address] | | | | | | [address] [place] | | | | | | [place] [address] | | | | | | [phone] | | | | | | | | +--------+ + + + + | 04/13/ | Office | Cardiology | Shawn Michael | | | 2019 | Visit | | MD [address] | | | | | | [address] [place] | | | | | | [place], [place] [address] | | | | | | [phone] | | | | | | | [...]
--- OUTSIDE RECORDS SUMMARY | ~2020-03-14 | XMS | Encounter Summary ---
Demographics + + + | Address | [address] | | | [place] [address] | + + + | Home Phone [...] Team Providers + +------+ + | Care Document Processing Specialist Name | Role | Phone | [...] + | 12/20/ | Home Care | [facility] [place] | Sam Quintanilla, | PT REPEAT VISIT | | 2020 | Visit | [place] [address] | [employer]ICAL ENGINEER [address] | | | | | [place] | [place] | | | | | [address] | [address] | | | | | [phone] | | | +--------+ + + + [...] + +---------+ + + | Pulse | 100 | 12/21/2019 11:14 AM | | | | | PDT | | + +---------+ + + | Temperature | - | - | | + +---------+ + + | Respiratory Rate | - | - | | + +---------+ + + | Oxygen Saturation | 90% | 12/21/2019 11:14 AM | on 3.5 lit O2 | | | | PDT [...] | | 2019 | Visit | | [facility] [address] | | | | | | [place] | | | | | | [address] | | | | | | | | +--------+ + + + + | 04/11/ | Appointment | Radiology | Shawn Michael | | | 2019 | | | MD [address] | | | | | | [address] [place] | | | | | | [place] [address] | | | | | | [phone] | | | | | | | | +--------+ + + + + | 04/13/ | Office | Cardiology | Shawn Michael | | | 2019 | Visit | | MD [address] | | | | | | [address] [place] | | | | | | [place] [address] | | | | | | [phone] | | | | | | | [...]
--- OUTSIDE RECORDS SUMMARY | ~2020-03-14 | XMS | Encounter Summary ---
Demographics + + + | Address | [address] | | | [place] [address] | + + + | Home Phone [...] Providers + +------+ + | Care Customer Supply Coordinator Name | Role | Phone | [...] [address] | [address] [facility] | | | | | [facility] [place] | [place] [address] | | | | | [address] | [phone] | | | | | [phone] | | | +--------+ + + + [...] [place] | | | | | | [address] | | | | | | | | +--------+ + + + + | 04/11/ | Appointment | Radiology | Shawn Michael | | 2019 | | | MD Marcelino [address] | | | | | | [address] | | | | | | [place] [address] | | | | | | [phone] | | | | | | | | +--------+ + + + + | 04/13/ | Office | Cardiology | Shawn Michael | | | 2019 | Visit | | MD Marcelino [address] | | | | | | [address] [place] | | | | | | [place] [address] | | | | | | [phone] | | | | | | | [...]
--- OUTSIDE RECORDS SUMMARY | ~2020-03-14 | XMS | Encounter Summary ---
Demographics + + + | Address | [address] | | | [place] [address] | + + + | Home Phone [...] Providers + +------+ + | Care Retail Clerk Name | Role | Phone | [...] [place] | | | | | | [address] | | | | | | [phone] | | | +--------+ + + + [...] | | | | | [place] [address] | | | | | | [phone] | | | | | | | | +--------+ + + + + | 04/13/ | Office | Cardiology | Shawn Michael | | | 2019 | Visit | | MD Marcelino [address] | | | | | | [address] | | | | | | [place] [address] | | | | | | [phone] | | | | | | | [...]
--- OUTSIDE RECORDS SUMMARY | ~2020-03-14 | XMS | Encounter Summary ---
Demographics + + + | Address | [address] | | | [place] [address] | + + + | Home Phone [...] Team Providers + +------+ + | Care Tactical/Mobile Watch Officer Name | Role | Phone | [...] | +--------+ + + + + | 11/23/ | Telephone | [facility] [place] | Shikha Peace, | Referral (Follow up) | | 2020 | | [place] [address] | [place] | | | | | [place] | | | | | | [address] | | | | | | [phone] | | | +--------+ + + + [...] | 2019 | Visit | | MANAGER ANALYSIS [address] | | | | | | [place] | | | | | | [address] | | | | | | | | +--------+ + + + + | 04/11/ | Appointment | Radiology | Shawn Michael | | | 2019 | | | MD Mynor Benson | | | | | | [address] [place] | | | | | | [place] [address] | | | | | | [phone] | | | | | | | | +--------+ + + + + | 04/13/ | Office | Cardiology | Shawn Michael | | | 2019 | Visit | | MD Mynor Benson [address] | | | | | | [address] [place] | | | | | | [place], [place] [address] | | | | | | [phone] | | | | | | | [...]
--- OUTSIDE RECORDS SUMMARY | ~2020-03-14 | XMS | Encounter Summary ---
Demographics + + + | Address | [address] | | | [place] [address] | + + + | Home Phone [...] Team Providers + +------+ + | Care Benzol Operator Name | Role | Phone | [...] + | 12/24/ | Refill | [facility] | Nikolay, | Medication Refill | | 2019 | | MEDICINE [address] | MD Candido | | | | | [facility] | [address] [place] [address] | | | | | [place] [address] | [place] [address] | | | | | [phone] | [phone] | | | | | | | [...] | | 2019 | Visit | | SHUTTLE FINAL INSPECTOR [address] | | | | | | [place] | | | | | | [address] | | | | | | | | +--------+ + + + + | 04/11/ | Appointment | Radiology | Shawn Michael | | | 2019 | | | MD Mynor Benson [address] | | | | | | [address] [place] | | | | | | [place] [address] | | | | | | [phone] | | | | | | | | +--------+ + + + + | 04/13/ | Office | Cardiology | Shawn Michael | | | 2019 | Visit | | MD Mynor Benson [address] | | | | | | [address] [place] | | | | | | [place], [place] [address] | | | | | | [phone] | | | | | | | [...]
--- OUTSIDE RECORDS SUMMARY | ~2020-03-14 | XMS | Encounter Summary ---
Demographics + + + | Address | [address] | | | [place] [address] | + + + | Home Phone [...] Team Providers + +------+ + | Care [employer]er [employer] Name | Role | Phone | + [...] [facility] | [address], [place] | | | | | [address] | [address] [place], [place] | | | | | [place], [place] | [address] | | | | | [address] | | | | | | [phone] | | | +--------+---------+ + + + [...] might be different fro m the original. [place] HOSPITALIST DISCHARGE SUMMARY Pt. 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 Fell SOFTWARE PRODUCT MANAGER Was trying to sit on walker but [...] walk on Heart Disease CAD TAVR in [place] February 16, 2019 bioprosthetic complicated by moderate [...] er as he spoke to her Prior Mac Operator [facility], discussed with son in room with patien t if clot and not anticoag risk of worsening of clot CVA NV etc... 5th Dr Pineda reviewed and says would stop Anticoag and I spoke with Dr Velazquez ([place]) and h trevor says stop Anticoag that these pressures not unexpected and I told patient this and her son and Dr Cochran office in [place] contacted for their opionion. Did stop Coumadin which is not therapeutic yet anyhow 6th I called Dr Teddy Cochran office and his office has Echo via [employer] but he was to call m e and did not. I called Dr Ayoub office and his office provided his pager, no reply yet to p aging him. Addendum (06/11/2019 18:44) Dr Ayoub not answer page so I paged again and am calling office number (now closed but hope to connect to scalp treatment operator) Addendum (06/11/2019 19:00) Did reach Anna [phone] and she confirmed Mega pager number says now enterprise application analyst is Dr Buck and that Doc will be paged and if not reply in 20 minutes call back and the will use cell. I provided by [employer] for call back. Addendum (06/11/2019 19:43) I [...] latter to get back to me Also SOFTWARE PRODUCT MANAGER her Lasix was 20 mg daily not [...] chronic hypoxic respir failure on [place] O2 SOFTWARE PRODUCT MANAGER 6th she says 2-3 liters at home. Today is 97% on 4 liters. Heme positive stool Hx of EGD for Schtazkis ring EGD Sept Dr Stoddard mild ring dilated, gastroparesis, gastritis PRBC once on Jun 02 4th son says had Colonoscopy due to bleeding 11 months ago and was clean, says her HGB juvenile probation officer nically prior to TAVR was around 10. 6th Colonoscopy (limited had poor prep) did see the area of concern and has severe divertic ulosis no bleeding no visible cancer and NOT need biopsy, did advance to the descending colo n. 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 Please see progress note and SOFTWARE PRODUCT MANAGER medication list f or any discrepancies. PLEASE NOTE: ~ SOFTWARE PRODUCT MANAGER carvedilol dose 6.25 mg BID (double what was ordered on admit); ~ Hydralazine therapy complete SOFTWARE PRODUCT MANAGER; ~ docusate, fluticasone are PRN not scheduled SOFTWARE PRODUCT MANAGER; ~ added several meds ([place], eye drops, Brovana/Pulmicort nebs, tamsulosin); ~ pt [...] MD at the cardiac study Center in [facility]. Procedure was complicated with moderate perivalvu lar [...] regurgitation pre sent. MD Dr Teddy Nova [facility] [place] [address] [phone] (Son has said Dr Cochran and Dr Ayoub in same office but the number below scalp treatment operator did not kn ow of Dr Teddy Cochran) Dr Asha Ayoub [place] office [phone] press 5 and his pager is [phone] Dr Marcus Maguire [phone] (dot yaddendum tdnorefesh nownorefresh) (myla glaser) (myla [...] 11:am with Dr. Millan . Contact information: [address] [place] [phone] Condition: Patient being discharged with condition improved Greater than 30 minutes were spent on discharge and coordination of post-hospital care. (myla morton) Electronically signed by: Bruce Cochran MD, 06/12/2019 14:06 [facility] Reference. This is NOT part [...] this chart may have been created with [employer] voice recognition software. Occasi onal wrong-word or [...] sent through Care Everywhere.Diverticulitis, Discharge Instructions for (Bahamian)Congestive Heart Failure (CHF), Left-Sided (Bahamian)doc umented in this encounter Medications at Time [...] might be different fro m the original. [place] HOSPITALIST PROGRESS NOTE Patient: Ángela Crowley : 1930: Age: 88 y.o. MedRec: [id number] PCP: Kathleen Escobar MD Admission date: 05/31/2019 [...] and they said got the US by [employer] today and would have him call me after meeting. No call though by 450 pm and the number below no after hours service . Patient's son had told me prior that Dr Teddy Cochran was the person to contact but today h e said that Dr Ayoub to call. I called office (via [employer]) and his office gave me pager zoiesundar prajapati I just paged at 450 pm. I called [facility] and Mac Operator there says have Cardiac MRI but [...] ent and son. Home to here from [place]. Dr Velazquez yesterday said not need cardiac [...] Hypertension Moderate protein-calorie malnutrition Cerebral atherosclerosis medical staff services coordinator (current) use of anticoagulants - clopidogrel (PLAVIX) COPD (chronic obstructive pulmonary disease) Pulmonary hypertension, mild Anemia 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 Fell SOFTWARE PRODUCT MANAGER Was trying to sit on walker but [...] walk on Heart Disease CAD TAVR in [place] February 16, 2019 bioprosthetic complicated by moderate [...] with Coumadin (he had discussed with Dr DeJ esus) 4th Dr Umanzor is gone this week [...] er as he spoke to her Prior Mac Operator [place] area, discussed with son in room with patien t if clot and not anticoag risk of worsening of clot CVA NV etc... 5th Dr Pineda reviewed and says would stop Anticoag and I spoke with Dr Velazquez ([place]) and trevor says stop Anticoag that these pressures not unexpected and I told patient this and her son and Dr Cochran office in [place] contacted for their opionion. Did stop Coumadin which is not therapeutic yet anyhow 6th I called Dr Teddy Cochran office and his office has Echo via [employer] but he was to call e and did not. I called Dr Ayoub office and his office provided his pager, no reply yet to p aging him. Addendum (06/11/2019 18:44) Dr Ayoub not answer page so I paged again and am calling office number (now closed but hope to connect to scalp treatment operator) Addendum (06/11/2019 19:00) Did reach Anna [phone] and she confirmed Mega pager number says now enterprise application analyst is Dr Bukc and that Doc will be paged and if not reply in 20 minutes call back and the will use cell. I provided by [employer] for call back. Addendum (06/11/2019 19:43) I [...] latter to get back to me Also SOFTWARE PRODUCT MANAGER her Lasix was 20 mg daily not [...] chronic hypoxic respir failure on [place] O2 SOFTWARE PRODUCT MANAGER 6th she says 2-3 liters at home. Today is 97% on 4 liters. Heme positive stool Hx of EGD for Schtazkis ring EGD Jun 07 Dr Stoddard mild ring dilated, gastroparesis, gastritis PRBC once on Jun 02 son says had Colonoscopy due to bleeding 11 months ago and was clean, says her HGB juvenile probation officer nically prior to TAVR was around 10. 6th Colonoscopy (limited had poor prep) did see the area of concern and has severe divertic ulosis no bleeding no visible cancer and NOT need biopsy, did advance to the descending colo n. 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 Please see progress note and SOFTWARE PRODUCT MANAGER medication list f or any discrepancies. PLEASE NOTE: ~ SOFTWARE PRODUCT MANAGER carvedilol dose 6.25 mg BID (double what was ordered on admit); ~ Hydralazine therapy complete SOFTWARE PRODUCT MANAGER; ~ docusate, fluticasone are PRN not scheduled SOFTWARE PRODUCT MANAGER; ~ added several meds ([place], eye drops, Brovana/Pulmicort nebs, tamsulosin); ~ pt [...] MD at the cardiac study Center in [facility]. Procedure was complicated with moderate perivalvu lar [...] regurgitation pre sent. MD Dr Teddy Nova [facility] [address] [phone] (Son has said Dr Cochran and Dr Ayoub in same office but the number below scalp treatment operator did not kn ow of Dr Teddy Cochran) Dr Asha Ayoub [place] office [phone] press 5 and his pager is [phone] Dr Marcus Maguire [phone] (dot meyaddendum tdnorefesh nownorefresh) (dot meyvent) (dot [...] meycritical meysign) Bruce Cochran MD 06/12/2019 13:17 [facility] Objective Data Serial weights: Filed [...] for input(s): IRON, TIBC, PCTSAT, FERRITIN, TSH, [id number], FOLATE in the last 168 hours. Inflammatory [...] ABG No results for input(s): PHART, PO2ART, XYQ6VWO, SOA4RJD, BEART, [id number] in the last 168 h ours. No results for input(s): SPECSOURCE, PHPOCB, PCO2, PO2, HCO3, TCO2, BEART, [id number] in the last 168 hours. Drug of [...] Component Value Units Date/Time Helicobactor pylori Biopsy [[id number]] (Normal) Collected: 06/07/19 0824 Order Status: Completed Lab Status: Final result Updated: 06/09/19 0915 Specimen: Tissue from Stomach, Antrum Helicobacter pylori Ag Negative Culture, Blood [[id number]] Collected: 06/06/19 0849 Order Status: Completed Lab Status: Final result Updated: 06/11/19 0851 Specimen: Peripheral Blood Culture No growth after 5 days incubation. Culture, Blood [[id number]] Collected: 06/06/19 0807 Order Status: Completed Lab [...] this chart may have been created with [employer] voice recognition software. Occasi onal wrong-word or sound-alike substitutions may have occurred due to the inherent owen itations of voice recognition software. Please read the chart carefully and recognize, using context, where these substitutions have occurred eyer, Bruce Coe MD - 06/11/2019 4:50 PM PDT [place] HOSPITALIST PROGRESS NOTE Patient: Ángela Crowley : 1930: Age: 88 y.o. MedRec: [id number] PCP: Kathleen Escobar MD Admission date: 05/31/2019 [...] and they said got the US by [employer] today and would have him call me after meeting. No call though by 450 pm and the number below no after hours service . Patient's son had told me prior that Dr Teddy Cochran was the person to contact but today victorina murray said that Dr Ayoub to call. I called office (via [employer]) and his office gave me pager karla prajapati I just paged at 450 pm. I called [facility] and Mac Operator there says have Cardiac MRI but [...] ent and son. Home to here from [place]. Dr Velazquez yesterday said not need cardiac [...] Hypertension Moderate protein-calorie malnutrition Cerebral atherosclerosis medical staff services coordinator (current) use of anticoagulants - clopidogrel (PLAVIX) COPD (chronic obstructive pulmonary disease) Pulmonary hypertension, mild Anemia 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 Fell SOFTWARE PRODUCT MANAGER Was trying to sit on walker but [...] walk on Heart Disease CAD TAVR in [place] February 16, 2019 bioprosthetic complicated by moderate [...] er as he spoke to her Prior Mac Operator [place] area, discussed with son in room with patikatharina t if clot and not anticoag risk of worsening of clot CVA NV etc... 5th Dr Pineda reviewed and says would stop Anticoag and I spoke with Dr Velazquez ([place]) and victorina murray says stop Anticoag that these pressures not unexpected and I told patient this and her son and Dr Cochran office in [place] contacted for their opionion. Did stop Coumadin which is not therapeutic yet anyhow 6th I called Dr Teddy Cochran office and his office has Echo via [employer] but he was to call m e [...] latter to get back to me Also SOFTWARE PRODUCT MANAGER her Lasix was 20 mg daily not [...] chronic hypoxic respir failure on [place] O2 SOFTWARE PRODUCT MANAGER 6th she says 2-3 liters at home. Today is 97% on 4 liters. Heme positive stool Hx of EGD for Schtazkis ring EGD Jun 07 Dr Stoddard mild ring dilated, gastroparesis, gastritis PRBC once on Jun 02 4th son says had Colonoscopy due to bleeding 11 months ago and was clean, says her HGB juvenile probation officer nically prior to TAVR was around 10. 6th Colonoscopy (limited had poor prep) did see the area of concern and has severe divertic ulosis no bleeding no visible cancer and NOT need biopsy, did advance to the descending colo n. 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 Please see progress note and SOFTWARE PRODUCT MANAGER medication list f or any discrepancies. PLEASE NOTE: ~ SOFTWARE PRODUCT MANAGER carvedilol dose 6.25 mg BID (double what was ordered on admit); ~ Hydralazine therapy complete SOFTWARE PRODUCT MANAGER; ~ docusate, fluticasone are PRN not scheduled SOFTWARE PRODUCT MANAGER; ~ added several meds ([place], eye drops, Brovana/Pulmicort nebs, tamsulosin); ~ pt [...] MD at the cardiac study Center in [facility]. Procedure was complicated with moderate perivalvu lar [...] regurgitation pre sent. MD Dr Teddy Nova [facility] [place] [address] [phone] (Son has said Dr Cochran and Dr Ayoub in same office but the number below scalp treatment operator did not kn ow of Dr Teddy Cochran) Dr Asha Ayoub [place] office [phone] press 5 and his pager is [phone] Dr Marcus Maguire [phone] (dot meyaddendum tdnorefesh nownorefresh) (dot meyvent) (dot malnutattest is attestation for malnutrition) Plan Dr Teddy Cochran not call me back Dr Ayoub paged CXR Still on Zosyn Miralax Carb controlled diet Addendum (06/11/2019 18:44) Dr Ayoub not answer page so I paged again and am calling office number (now closed but hope to connect to scalp treatment operator) Addendum (06/11/2019 19:00) Did reach [place] [phone] and she confirmed Mega pager number says now enterprise application analyst is Dr Buck and that Doc will be paged and if not reply in 20 minutes call back and the will use [employer]. I provided by [employer] for call back. Addendum (06/11/2019 19:43) I [...] 18:53) RN walked these over Son provided [phone] and I called twice and does not allow me to reach anyone Son provided [phone] Time spent with the patient (of which [...] meycritical meysign) Bruce Cochran MD 06/11/2019 16:50 [facility] Objective Data Serial weights: Filed [...] gel GEL Mouth/Throat Q30 Min PRN Angelo aCrvajal MD senna (SENOKOT) tablet 8.6 mg 8.6 [...] for input(s): IRON, TIBC, PCTSAT, FERRITIN, TSH, [id number], FOLATE in the last 168 hours. Inflammatory [...] ABG No results for input(s): PHART, PO2ART, EIV5TZB, ANW6YHA, BEART, [id number] in the last 168 h ours. No results for input(s): SPECSOURCE, PHPOCB, PCO2, PO2, HCO3, TCO2, BEART, [id number] in the last 168 hours. Drug of [...] Component Value Units Date/Time Helicobactor pylori Biopsy [[id number]] (Normal) Collected: 06/07/19 0824 Order Status: Completed Lab Status: Final result Updated: 06/09/19 0915 Specimen: Tissue from Stomach, Antrum Helicobacter pylori Ag Negative Culture, Blood [[id number]] Collected: 06/06/19 0849 Order Status: Completed Lab Status: Final result Updated: 06/11/19 0851 Specimen: Peripheral Blood Culture No growth after 5 days incubation. Culture, Blood [[id number]] Collected: 06/06/19 0807 Order Status: Completed Lab [...] this chart may have been created with [employer] recognition software. Occasi onal wrong-word or sound-alike substitutions may have occurred due to the inherent owen itations of voice recognition software. Please read the chart carefully and recognize, using context, where these substitutions have occurred eyer, Bruce Coe MD - 06/10/2019 12:42 PM PDT [place] HOSPITALIST PROGRESS NOTE Patient: Ángela Crowley : 1930: Age: 88 y.o. MedRec: [id number] PCP: Kathleen Escobar MD Admission date: 05/31/2019 [...] I spoke to Dr Cochran office in [place] and he to call me back (Son [...] disorder Hypertension Moderate protein-calorie malnutrition Cerebral atherosclerosis group home (current) use of anticoagulants - clopidogrel (PLAVIX) COPD (chronic obstructive pulmonary disease) Pulmonary hypertension, mild Anemia 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 Fell SOFTWARE PRODUCT MANAGER Was trying to sit on walker but [...] walk on Heart Disease CAD TAVR in [place] February 16, 2019 bioprosthetic complicated by moderate [...] er as he spoke to her Prior Mac Operator [place] area, discussed with son in room with patien t if clot and not anticoag risk of worsening of clot CVA NV etc... 5th Dr Pineda reviewed and says would stop Anticoag and I spoke with Dr Velazquez ([place]) and victorina murray says stop Anticoag that these pressures not unexpected and I told patient this and her son and Dr Cochran office in [place] contacted for their opionion. Did stop Coumadin [...] latter to get back to me Also SOFTWARE PRODUCT MANAGER her Lasix was 20 mg daily not [...] chronic hypoxic respir failure on [place] O2 SOFTWARE PRODUCT MANAGER Heme positive stool Hx of EGD for Schtazkis ring EGD Jun 07 Dr Stoddard mild ring dilated, gastroparesis, gastritis PRBC once on Jun 02 4th son says had Colonoscopy due to bleeding 11 months ago and was clean, says her HGB juvenile probation officer nically prior to TAVR was around 10. 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 Please see progress note and SOFTWARE PRODUCT MANAGER medication list f or any discrepancies. PLEASE NOTE: ~ SOFTWARE PRODUCT MANAGER carvedilol dose 6.25 mg BID (double what was ordered on admit); ~ Hydralazine therapy complete SOFTWARE PRODUCT MANAGER; ~ docusate, fluticasone are PRN not scheduled SOFTWARE PRODUCT MANAGER; ~ added several meds ([place], eye drops, Brovana/Pulmicort nebs, tamsulosin); ~ pt [...] MD at the cardiac study Center in [facility]. Procedure was complicated with moderate perivalvu lar [...] regurgitation pre sent. MD Dr Teddy Nova [facility] [place] [address] [phone] Dr Asha Velazquez [phone] (dot meyaddendum tdnorefesh nownorefresh) (dot meyvent) (dot [...] meycritical meysign) Bruce Cochran MD 06/10/2019 12:42 [facility] Objective Data Serial weights: Filed [...] 20 mg 20 mg Oral Nightly Keyur Carvajla MD 20 mg at 2146 brimonidine (ALPHAGAN) [...] 40 mg 40 mg Oral BID AC Keuyr Carvajal MD 40 mg at 06/10/19 0641 [...] for input(s): IRON, TIBC, PCTSAT, FERRITIN, TSH, [id number], FOLATE in the last 168 hours. Inflammatory [...] ABG No results for input(s): PHART, PO2ART, HGJ1SAU, SVL7YAZ, BEART, [id number] in the last 168 h ours. No results for input(s): SPECSOURCE, PHPOCB, PCO2, PO2, HCO3, TCO2, BEART, [id number] in the last 168 hours. Drug of [...] Component Value Units Date/Time Helicobactor pylori Biopsy [[id number]] (Normal) Collected: 06/07/19 0824 Order Status: Completed Lab Status: Final result Updated: 06/09/1915 Specimen: Tissue from Stomach, Antrum Helicobacter pylori Ag Negative Culture, Blood [[id number]] Collected: 06/06/19 0849 Order Status: Completed Lab Status: Preliminary result Updated: 06/09/19 0851 Specimen: Peripheral Blood Culture No growth: Monitored continually by instrument for 5 days Culture, Blood [[id number]] Collected: 06/06/19 0807 Order Status: Completed Lab Status: Preliminary result Updated: 06/09/19 0811 Specimen: Blood from Line Culture No growth: Monitored continually by instrument for 5 days Culture, MRSA [[id number]] Collected: 06/04/19 1329 Order Status: Completed Lab Status: Final result Updated: 06/05/19 0730 Specimen: Tissue from Nares Culture 3+ Staphylococcus aureus,Methicillin resistant (MRSA) Comment: *INFECTION PREVENTION ALERT - MRSA* CONTACT PRECAUTIONS REQUIRED. Culture, Blood [[id number]] Collected: 06/04/19 1154 Order Status: Completed Lab Status: Final result Updated: 06/09/19 1211 Specimen: Peripheral Blood Culture No growth after 5 days incubation. Culture, Blood [[id number]] Collected: 06/04/19 1154 Order Status: Completed Lab [...] this chart may have been created with [employer] voice recognition software. Occasi onal wrong-word or sound-alike substitutions may have occurred due to the inherent owen itations of voice recognition software. Please read the chart carefully and recognize, using context, where these substitutions have occurred eyer, Bruce Coe MD - 06/09/2019 8:31 PM PDT [facility] HOSPITALIST PROGRESS NOTE Patient: Ángela Crowley : 1930: Age: 88 y.o. MedRec: [id number] PCP: Kathleen Escobar MD Admission date: 05/31/2019 [...] disorder Hypertension Moderate protein-calorie malnutrition Cerebral atherosclerosis group home (current) use of anticoagulants - clopidogrel (PLAVIX) COPD (chronic obstructive pulmonary disease) Pulmonary hypertension, mild Anemia 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 Fell SOFTWARE PRODUCT MANAGER Was trying to sit on walker but was not locked and fell back and had foot pain 4th xray on May 31 showed possible non displaced fracture involving the base of the 2nd p roximal phalanx extending to the MTP joint LEFT. ER Doc at admit aware as was admitter. Heart Disease CAD TAVR in [place] February 16, 2019 bioprosthetic complicated by moderate [...] er as he spoke to her Prior Mac Operator [place] area, discussed with son in room with patien t if clot and not anticoag risk of worsening of clot CVA NV etc... 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 Please see progress note and SOFTWARE PRODUCT MANAGER medication list f or any discrepancies. PLEASE NOTE: ~ SOFTWARE PRODUCT MANAGER carvedilol dose 6.25 mg BID (double what was ordered on admit); ~ Hydralazine therapy complete SOFTWARE PRODUCT MANAGER; ~ docusate, fluticasone are PRN not scheduled SOFTWARE PRODUCT MANAGER; ~ added several meds ([place], eye drops, Brovana/Pulmicort nebs, tamsulosin); ~ pt [...] MD at the cardiac study Center in [facility]. Procedure was complicated with moderate perivalvu lar [...] regurgitation pre sent. MD Dr Teddy Nova [facility] [place] [address] [phone] Dr Asha Velazquez [phone] (dot meyaddendum tdnorefesh nownorefresh) (dot meyvent) (dot [...] meycritical meysign) Bruce Cochran MD 06/09/2019 20:31 [facility] Objective Data Serial weights: Filed [...] for input(s): IRON, TIBC, PCTSAT, FERRITIN, TSH, [id number], FOLATE in the last 168 hours. Inflammatory [...] ABG No results for input(s): PHART, PO2ART, QNH9TYT, JMA5MWG, BEART, A3AOFVXU in the last 168 h ours. No results for input(s): SPECSOURCE, PHPOCB, PCO2, PO2, HCO3, TCO2, BEART, YGOK3HFA in the last 168 hours. Drug of [...] Component Value Units Date/Time Helicobactor pylori Biopsy [[id number]] (Normal) Collected: 06/07/19 0824 Order Status: Completed Lab Status: Final result Updated: 06/09/19 0915 Specimen: Tissue from Stomach, Antrum Helicobacter pylori Ag Negative Culture, Blood [[id number]] Collected: 06/06/19 0849 Order Status: Completed Lab Status: Preliminary result Updated: 06/09/19 0851 Specimen: Peripheral Blood Culture No growth: Monitored continually by instrument for 5 days Culture, Blood [[id number]] Collected: 06/06/19 0807 Order Status: Completed Lab Status: Preliminary result Updated: 06/09/19 0811 Specimen: Blood from Line Culture No growth: Monitored continually by instrument for 5 days Culture, MRSA [[id number]] Collected: 06/04/19 1329 Order Status: Completed Lab Status: Final result Updated: 06/05/19 0730 Specimen: Tissue from Nares Culture 3+ Staphylococcus aureus,Methicillin resistant (MRSA) Comment: *INFECTION PREVENTION ALERT - MRSA* CONTACT PRECAUTIONS REQUIRED. Culture, Blood [[id number]] Collected: 06/04/19 1154 Order Status: Completed Lab Status: Final result Updated: 06/09/19 1211 Specimen: Peripheral Blood Culture No growth after 5 days incubation. Culture, Blood [[id number]] Collected: 06/04/19 1154 Order Status: Completed Lab [...] this chart may have been created with [employer] voice recognition software. Occasi onal wrong-word or sound-alike substitutions may have occurred due to the inherent owen itations of voice recognition software. Please read the chart carefully and recognize, using context, where these substitutions have occurred eyer, Bruce Coe MD - 06/08/2019 4:45 PM PDT [place], [place] HOSPITALIST PROGRESS NOTE Patient: Ángela Crowley : 1930: Age: 88 y.o. MedRec: [id number] PCP: Kathleen Escobar MD Admission date: 05/31/2019 Hospital day # : 8 Physician author: Bruce Cochran MD Today: 06/08/2019 Subjective CC Admit May 31 after falling Chronic SOB Says Dr Carvajal told her she can go home on Friday Wants ceja out say was on Flomax SOFTWARE PRODUCT MANAGER to help void SOFTWARE PRODUCT MANAGER ROS See above Objective Exam General Alert [...] disorder Hypertension Moderate protein-calorie malnutrition Cerebral atherosclerosis group home (current) use of anticoagulants - clopidogrel (PLAVIX) COPD (chronic obstructive pulmonary disease) Pulmonary hypertension, mild Anemia 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 Please see progress note and SOFTWARE PRODUCT MANAGER medication list f or any discrepancies. PLEASE NOTE: ~ SOFTWARE PRODUCT MANAGER carvedilol dose 6.25 mg BID (double what was ordered on admit); ~ Hydralazine therapy complete SOFTWARE PRODUCT MANAGER; ~ docusate, fluticasone are PRN not scheduled SOFTWARE PRODUCT MANAGER; ~ added several meds ([place], eye drops, Brovana/Pulmicort nebs, tamsulosin); ~ pt [...] meycritical meysign) Bruce Cochran MD 06/08/2019 16:45 [facility] Objective Data Serial weights: Filed [...] for input(s): IRON, TIBC, PCTSAT, FERRITIN, TSH, [id number], FOLATE in the last 168 hours. Inflammatory [...] ABG No results for input(s): PHART, PO2ART, HHD3BOB, KFX6BOV, BEART, G6XLINUY in the last 168 h ours. No results for input(s): SPECSOURCE, PHPOCB, PCO2, PO2, HCO3, TCO2, BEART, ACTJ4DPW in the last 168 hours. Drug of [...] Component Value Units Date/Time Helicobactor pylori Biopsy [[id number]] Collected: 06/07/19 0824 Order Status: Sent Lab Status: In process Updated: 06/07/19844 Specimen: Tissue from Stomach, Antrum Culture, Blood [[id number]] Collected: 06/06/19 0849 Order Status: Completed Lab Status: Preliminary result Updated: 06/06/192050 Specimen: Peripheral Blood Culture No growth: Monitored continually by instrument for 5 days Culture, Blood [[id number]] Collected: 06/06/19806 Order Status: Completed Lab Status: Preliminary result Updated: 06/06/192010 Specimen: Blood from Line Culture No growth: Monitored continually by instrument for 5 days Culture, MRSA [[id number]] Collected: 06/04/19 1329 Order Status: Completed Lab Status: Final result Updated: 06/05/19729 Specimen: Tissue from Nares Culture 3+ Staphylococcus aureus,Methicillin resistant (MRSA) Comment: *INFECTION PREVENTION ALERT - MRSA* CONTACT PRECAUTIONS REQUIRED. Culture, Blood [[id number]] Collected: 06/04/19 1154 Order Status: Completed Lab Status: Preliminary result Updated: 06/07/19 121 Specimen: Peripheral Blood Culture No growth: Monitored continually by instrument for 5 days Culture, Blood [[id number]] Collected: 06/04/19 115 Order Status: Completed Lab Status: Preliminary result Updated: 06/07/19 121 Specimen: Peripheral Blood Culture No growth: Monitored continually by instrument for 5 days Culture, Blood [[id number]] Collected: 06/02/191914 Order Status: Completed Lab Status: Final result Updated: 06/07/191920 Specimen: Peripheral Blood Culture No growth after 5 days incubation. Culture, Blood [[id number]] Collected: 06/02/191914 Order Status: Completed Lab Status: [...] this chart may have been created with [employer] voice recognition software. Occasi onal wrong-word or sound-alike substitutions may have occurred due to the inherent owen itations of voice recognition software. Please read the chart carefully and recognize, using context, where these substitutions have occurred Keyur Sharma MD - 06/07/2019 5:24 PM PDT [facility] Hospitalist Progress Note Ángela [...] a.m. stopping the hydrocortisone. 2. Type 2 NV versus NSTEMI Patient's troponin has trended to baseline from 05/31 value of 0.13. Patient had TAVR in 02/04 and would have had coronary angiography prior to procedure. We are continue to work on obtaining any results of coronary arteriography.She was referred for her TAVR from [facility] in [place] and medical records is working to try [...] daily and will follow Hemoccults.She will need [employer] at the time of discharge to have protimes shooting for an INR no greater than 2 [facility]. 5. Mild CHF Patient's BNP on admission [...] as outlined above. Keyur Carvajal 06/07/2019 17:24 [facility] Portions of this chart may have been created with [employer] voice recognition software. Occasi onal wrong-word or [...] Carvajal MD - 10/2018 7:45 PM PDT [facility] Hospitalist Progress Note Ángela [...] have shown clinical improvement. 2. Type 2 NV versus NSTEMI Patient's troponin has trended to [...] as outlined above. Keyur Carvajal 06/06/2019 19:45 [facility] Portions of this chart may have been created with [employer] voice recognition software. Occasi onal wrong-word or sound-alike substitutions may have occurred due to the inherent owen itations of voice recognition software. Please read the chart carefully and recognize, using context, where these substitutions have occurred arkerKeyur MD - 0 06/05/2019 7:53 PM PDT [facility] Hospitalist Progress Note Ángela [...] mg every 8 hours. 2. Type 2 NV versus NSTEMI Patient's troponin has trended to [...] as outlined above. Keyur Carvajal 06/06/2019 19:53 [facility] Portions of this chart may have been created with [employer] voice recognition software. Occasi onal wrong-word or [...] ? Pharmacy list names: [facility] ? [place] State Prescription Monitoring Program ? [place] State Prescription Monitoring Program ? [employer] insurance reported information ? Care Everywhere ? Outside Information ? Other sources: Verbal interview with son, Yadiel, who manages patient's medications Vaccines up to date? Yes No Unsure Influenza x Pneumococcal x Tdap x Shingles x Noted medications discrepancies or medication-related issues: Dosage/Form/Frequency change: SOFTWARE PRODUCT MANAGER Medication: Prior to Admission Sig: Correct [...] mL by nebulization twice daily Per son, edge trimming machine operator instructed him to mix with Budesonide marcelino Budesonide 0.5 mg/2 mL neb marcelino 2 mL by nebulization twice daily Per son, edge trimming machine operator instructed him to mix with [...] Prior to Admission Sig: Patient taking differently SOFTWARE PRODUCT MANAGER as: Alprazolam 0.25 mg tab 1 tab [...] 1 tab by mouth daily Son states major account manager lowered dose ~8 months ago. Best possible SOFTWARE PRODUCT MANAGER medication list after pharmacy review: PT [...] performed and electronically signed by Ly Guido, Job Foreman 11:34 Reviewed by Autumn Sutherland, PharmD 06/05/2019 [...] MD - 06/04/2019 11:2 9 AM PDT [facility] Hospitalist Progress Note Ángela [...] improves with this . 2. Type 2 NV versus NSTEMI Patient's troponin has trended to [...] as outlined above. Keyur Carvajal 06/04/2019 11:29 [facility] Portions of this chart may have been created with [employer] voice recognition software. Occasi onal wrong-word or [...] waves in leads V4-6:cannot rule out lateral NV age indeterminant Cannot rule out Inferior infarct , age undetermined [address] elevation in leads V4-6:consider ischemia/infarction No previous ECGs available Confirmed by UMESH JOSEPH, LEONIDAS ([id number]) on 06/01/2019 5:26:47 AM Which is compared to today's ECG 05/31/2019: TUTORING MANAGER/PATIENT PLACEMENT COORDINATOR: 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 Potential bioprosthetic aortic valve thrombosis A. Post TAVR with 23 mm Edward Sapian S3 valve on 02/16/2019 by Asha Ayoub MD at the cardiac study Center in [facility]. Procedure was complicated with modera te perivalvular [...] artery disease A. Left heart cath in [facility] on 02/16/2019 suggest noncritical CAD. However, r eport is not available. B. Troponin earlier was elevated at 0.13, however, patient has no chest pain no evidence of heart failure. C. She is treated appropriately with combination of aspirin, statin and beta-barbara. 3. Essential hypertension A. Blood pressure this morning is well controlled. 4. Anemia with GI bleeding A. She was admitted to [facility] on 05/31/2019 because of falls and feeling [...] both accurate and complete. Clint Jovel MD [facility] 06/04/2019 8:10 Portions of this chart may have been created with [employer] voice recognition software. Occasi onal wrong-word or sound-alike substitutions may have occurred due to the inherent owen itations of voice recognition software. Please read the chart carefully and recognize, using context, where these substitutions have occurred. Keyur Sharma MD - 06/03/2019 9:28 PM PDT [facility] Hospitalist Progress Note Ángela Crowley is a 88 y.o. female ASSESSMENT and PLAN: 1. Type 2 NV versus NSTEMI Patient's troponin has trended to baseline from 05/31 value of 0.13. Patient had TAVR in 02/04 and would have had coronary angiography prior to procedure. [facility] queried today and has no record of this. She was referred from [facility](Dr Cochran) and will contact the m in [...] as outlined above. Keyur Carvajal 06/03/2019 21:30 [facility] Portions of this chart may have been created with [employer] voice recognition software. Occasi onal wrong-word or sound-alike substitutions may have occurred due to the inherent owen itations of voice recognition software. Please read the chart carefully and recognize, using context, where these substitutions have occurred arker, Keyur Murray MD - 0 06/02/2019 6:23 PM PDT [facility] Hospitalist Progress Note Ángela Crowley is a 88 y.o. female ASSESSMENT and PLAN: 1. Type 2 NV versus NSTEMI Patient's troponin has really turned [...] blood cultures. Coronary angiography was requested from [facility] [facility] but this compon ent was not [...] as outlined above. Keyur Carvajal 06/02/2019 18:23 [facility] Portions of this chart may have been created with [employer] voice recognition software. Occasi onal wrong-word or sound-alike substitutions may have occurred due to the inherent owen itations of voice recognition software. Please read the chart carefully and recognize, using context, where these substitutions have occurred arker, Keyur Murray MD - 0 06/01/2019 6:47 PM PDT [facility] Hospitalist Progress Note Ángela Crowley is a 88 y.o. female ASSESSMENT and PLAN: 1. Type 2 NV versus NSTEMI Patient's troponin has really turned [...] will try to obtain these records from [facility]. 2. Anemia. Patient has multiple etiologies. [...] as outlined above. Keyur Carvajal 06/02/2019 18:47 [facility] Portions of this chart may have been created with [employer] voice recognition software. Occasi onal wrong-word or [...] | | 2019 | Visit | | NEPHROLOGIST [address] | | | | | | [place] | | | | | | [id number] | | | | | | | | +--------+ + + + + | 04/11/ | Appointment | Radiology | Shawn Michael | | | 2019 | | | MD [address] | | | | | | [address] [place] | | | | | | [place] [id number] | | | | | | [phone] | | | | | | | | +--------+ + + + + | 04/13/ | Office | Cardiology | Shawn Michael | | | 2019 | Visit | | MD [address] | | | | | | [address] [place] | | | | | | [place] [id number] | | | | | | [phone] | | | | | | | [...] | + +--------+ + + + | COMPUTER FIELD TECHNICIAN REPORT - | | 02/16/2019 | [...] [address] | [place] | [phone] | | [facility] | | [address] | | | - LABORATORY | | [...] [address] | [place] | [phone] | | [facility] | | [address] | | | - LABORATORY | | [...] | | | Average | | | [facility] | | | Glucose | | | [...] + | [address] | [address] | [place] | [phone] | | [facility] | | [address] | | | - LABORATORY | | [...] ST. | [address] | [place], [place] | [phone] | | [facility] | | [address] | | | - LABORATORY | | [...] | | MEDICAL | | | | mL/min/1.97w6Jion than | | CENTER - | | [...] 8.4 (L) | 8.7 - 10.4 | [facility] | | | | | mg/dL [...] [address] | [place] | [phone] | | [facility] | | [address] | | | - LABORATORY | | [...] + | [facility] | [address] | [place] | [phone] | | [facility] | | [address] | | | - LABORATORY | | [...] | [address] | [place] | [phone] | | [facility] | | [address] | | | - LABORATORY | | [...] + + | Performing | Address | City/State/[facility] | Phone Number | | Organization [...] + | [facility] | [address] | [place] | [phone] | | [facility] | | [address] | | | - LABORATORY | | [...] ST. | [address] | [place], [place] | [phone] | | [facility] | | [address] | | | - LABORATORY | | | | + + + + + COLONOSCOPY (06/11/2019 7:45 AM PDT) + + | Specimen | + + | | + + + + -+ | Narrative | Performed At | + + -+ | | [facility] | | GastroenterologyPatient Name: Ángela Bermeorocedure Date: 06/11/2019 | [facility] | | 7:45 AMMRN: [id number] #: [id number] of : | | | 1930Admit Type: InpatientAge: 88Room: Endo Room 1Gender: | | | FemaleNote Status: FinalizedAttending MD: Edwin Stoddard , | | | MDProcedure: ColonoscopyIndications: Abnormal CT | | | of the GI tractProviders: Edwin Stoddard MD, Lorena Morrell, | | | RN, Ailin Bui, [employer] Consultant, Yahir Moy | | | MD Sravan [...] the anesthesiologist and the | | | pharmacy technician in the endoscopy suite. Mental Status [...] AMScope Out: 8:12:08 AM | | | [facility], [address], [place] | | | [address] | | | - Stricture in the [...] |Scope Out: 8:12:08 AM | | | [facility], [address], [place], [place] | | | [address] | | + + -+ + +---------+ [...] | [address] | [place], [place] | [phone] | | [facility] | | [address] | | | [...] | | GLOMERULAR FILTRATION | mL/min/1.73m2 | [facility] | | | MONEGASQUE | RATE,ESTIMATED | | MEDICAL | | | | mL/min/1.87h3Mcqq than | | CENTER - | | [...] [address] | [place] | [phone] | | [facility] | | [address] | | | - LABORATORY | | [...] + | [facility] | [address] | [place] | [phone] | | [facility] | | [address] | | | - LABORATORY | | [...] [address] | [place] | [phone] | | [facility] | | [address] | | | - LABORATORY | | [...] + | [facility] | [address] | [place] | [phone] | | [facility] | | [address] | | | - LABORATORY | | [...] + | [facility] | [address] | [place] | [phone] | | [facility] | | [address] | | | - LABORATORY | | [...] | | | Anticoagulation Range: | | [facility] | | | | 2.0 - 3.0High [...] [address] | [place] | [phone] | | [facility] | | [address] | | | - LABORATORY | | [...] + | [facility] | [address] | [place] | [phone] | | [facility] | | [address] | | | - LABORATORY | | [...] | | MEDICAL | | | | mL/min/1.80z9Aiyx than | | CENTER - | | [...] [address] | [place] | [phone] | | [facility] | | [address] | | | - LABORATORY | | [...] + | [facility] | [address] | [place] | [phone] | | [facility] | | [address] | | | - LABORATORY | | [...] [address] | [place] | [phone] | | [facility] | | [address] | | | - LABORATORY | | [...] [address] | [place] | [phone] | | [facility] | | [address] | | | - LABORATORY | | [...] + | [facility] | [address] | [place] | [phone] | | [facility] | | [address] | | | - LABORATORY | | [...] [address] | [place] | [phone] | | [facility] | | [address] | | | - LABORATORY | | [...] | | MEDICAL | | | | mL/min/1.77y0Wdms than | | CENTER - | | [...] [address] | [place] | [phone] | | [facility] | | [address] | | | - LABORATORY | | [...] + | [facility] | [address] | [place] | [phone] | | [facility] | | [address] | | | - LABORATORY | | [...] [address] | [place] | [phone] | | [facility] | | [address] | | | - LABORATORY | | [...] [address] | [place] | [phone] | | [facility] | | [address] | | | - LABORATORY | | [...] + | [facility] | [address] | [place] | [phone] | | [facility] | | [address] | | | - LABORATORY | | [...] [address] | [place] | [phone] | | [facility] | | [address] | | | - LABORATORY | | [...] [address] | [place] | [phone] | | [facility] | | [address] | | | - LABORATORY | | [...] [address] | [place] | [phone] | | [facility] | | [address] | | | - LABORATORY | | [...] | | | POC | | | [facility] | | | | | [...] | + + + + + | [facility] | [address] | [place] | [phone] | | [facility] | | [address] | | | - LABORATORY | | [...] + | [facility] | [address] | [place] | [phone] | | [facility] | | [address] | | | - LABORATORY | | [...] + | [facility] | [address] | [place] | [phone] | | [facility] | | [address] | | | - LABORATORY | | [...] [address] | [place], [place] | [phone] | | [facility] | | [address] | | | - LABORATORY | | [...] + | [facility] | [address] | [place] | [phone] | | [facility] | | [address] | | | - LABORATORY | | [...] [address] | [place] | [phone] | | [facility] | | [address] | | | - LABORATORY | | | | + + + + + EGD (06/07/2019 7:41 AM PDT) + + | Specimen | + + | | + + + + -+ | Narrative | Performed At | + + -+ | | [facility] | | GastroenterologyPatient Name: Ángela ClarosesProcedure Date: 06/07/2019 | PROVATION | | 7:41 AMN: [id number] #: [id number] of : | | | 1930Admit Type: InpatientAge: 88Room: Endo Room 1Gender: | | | FemaleNote Status: FinalizedAttending MD: Edwin Stoddard , | | | MDProcedure: Upper GI endoscopyIndications: | | | Esophageal dysphagia, Occult blood in stoolProviders: | | | Edwin Stoddard MD, Ivett Alexandra RN, Marita | | | Stanley Phillip, Oracle Endeca Consultant, Hermilo Alcocer (Anesthesia | | | Staff)Medicines: [...] the anesthesiologist and the | | | pharmacy technician in the endoscopy suite. Mental Status [...] AMScope Out: 8:29:07 | | | AM [facility], [address] | | | [place] [address] | | | the duodenum, area of [...] |Scope Out: 8:29:07 AM | | | [facility], [address], [place], [place] | | | [address] | | + + -+ + +---------+ [...] + | [facility] | [address] | [place] | [phone] | | [facility] | | [address] | | | - LABORATORY | | [...] | | MEDICAL | | | | mL/min/1.82w7Sykv than | | CENTER - | | [...] [address] | [place] | [phone] | | [facility] | | [address] | | | - LABORATORY | | [...] + | [facility] | [address] | [place] | [phone] | | [facility] | | [address] | | | - LABORATORY | | [...] [address] | [place] | [phone] | | [facility] | | [address] | | | - LABORATORY | | [...] + | [facility] | [address] | [place] | [phone] | | [facility] | | [address] | | | - LABORATORY | | [...] + | [facility] | [address] | [place] | [phone] | | [facility] | | [address] | | | - LABORATORY | | [...] [address] | [place] | [phone] | | [facility] | | [address] | | | - LABORATORY | | [...] + | [facility] | [address] | [place] | [phone] | | [facility] | | [address] | | | - LABORATORY | | [...] [address] | [place] | [phone] | | [facility] | | [address] | | | - LABORATORY | | [...] [address] | [place] | [phone] | | [facility] | | [address] | | | - LABORATORY | | [...] + | [facility] | [address] | [place] | [phone] | | [facility] | | [address] | | | - LABORATORY | | [...] | [address] | [place] | [phone] | | [facility] | | [address] | | | - LABORATORY | | [...] + | [facility] | [address] | [place] | [phone] | | [facility] | | [address] | | | - LABORATORY | | [...] | [address] | [place] | [phone] | | [facility] | | [address] | | | - LABORATORY | | [...] [address] | [place], [place] | [phone] | | [facility] | | [address] | | | - LABORATORY | | [...] + | [facility] | [address] | [place], [place] | [phone] | | [facility] | | [address] | | | - LABORATORY | | [...] | | MEDICAL | | | | mL/min/1.48k4Jqee than | | CENTER - | | [...] [address] | [place] | [phone] | | [facility] | | [address] | | | - LABORATORY | | [...] [address] | [place] | [phone] | | [facility] | | [address] | | | - LABORATORY | | [...] [address] | [place] | [phone] | | [facility] | | [address] | | | - LABORATORY | | [...] + | [facility] | [address] | [place] | [phone] | | [facility] | | [address] | | | - LABORATORY | | [...] + | [facility] | [address] | [place] | [phone] | | [facility] | | [address] | | | - LABORATORY | | [...] | [address] | [place] | [phone] | | [facility] | | [address] | | | - LABORATORY | | [...] [address] | [place] | [phone] | | [facility] | | [address] | | | - LABORATORY | | [...] + | [facility] | [address] | [place] | [phone] | | [facility] | | [address] | | | - LABORATORY | | [...] | | MEDICAL | | | | mL/min/1.74b1Wfnw than | | CENTER - | | [...] + | [facility] | [address] | [place] | [phone] | | [facility] | | [address] | | | - LABORATORY | | [...] | | MEDICAL | | | | mL/min/1.50s8Kgkg than | | CENTER - | | [...] + | [facility] | [address] | [place] | [phone] | | [facility] | | [address] | | | - LABORATORY | | [...] + | [facility] | [address] | [place] | [phone] | | [facility] | | [address] | | | - LABORATORY | | [...] ST. | [address] | [place] | [phone] | | [facility] | | [address] | | | - LABORATORY | | [...] ampullary mucinous neoplasms. The largest | | twcwxart99 mm.Catheter in the bladder. No visible balloon. [...] + | [facility] | [address] | [place] | [phone] | | [facility] | | [address] | | | - LABORATORY | | [...] - 1.030 | [facility] | | | [place], | | | [facility] | | [...] + | [facility] | [address] | [place], [place] | [phone] | | [facility] | | [address] | | | - LABORATORY | | [...] [address] | [place] | [phone] | | [facility] | | [address] | | | - LABORATORY | | [...] not | 58 (L)Comment: | >=60 | [facility] | | | | GLOMERULAR FILTRATION | mL/min/1.73m2 | [facility] | | | MONEGASQUE | RATE,ESTIMATED | | MEDICAL | | | | mL/min/1.06k9Gpsw than | | CENTER - | | [...] | | | | | mg/dL | [facility] | | | | | [...] | [address] | [place] | [phone] | | [facility] | | [address] | | | - LABORATORY | | [...] + | [facility] | [address] | [place] | [phone] | | [facility] | | [address] | | | - LABORATORY | | [...] [address] | [place] | [phone] | | [facility] | | [address] | | | - LABORATORY | | [...] + | [facility] | [address] | [place] | [phone] | | [facility] | | [address] | | | - LABORATORY | | [...] | [address] | [place], [place] | [phone] | | [facility] | | [address] | | | - LABORATORY | | [...] [address] | [place] | [phone] | | [facility] | | [address] | | | - LABORATORY | | [...] [address] | [place] | [phone] | | [facility] | | [address] | | | - LABORATORY | | [...] + | [facility] | [address] | [place] | [phone] | | [facility] | | [address] | | | - LABORATORY | | [...] | | | FILTRATION | mL/min/1.73m2 | [facility] | | | MONEGASQUE | RATE,ESTIMATED | | MEDICAL | | | | mL/min/1.27h5Kygu than | | CENTER - | | [...] | | | | | mg/dL | [facility] | | | | | | MEDICAL | | | | | | CENTER - | | | | | | LABORATORY | | + + + + + + | BUN/Creatin | 33.3 | | [facility] | | | ine Ratio | | | [facility] | | | | | [...] [address] | [place] | [phone] | | [facility] | | [address] | | | - LABORATORY | | [...] + | [facility] | [address] | [place] | [phone] | | [facility] | | [address] | | | - LABORATORY | | [...] [address] | [place] | [phone] | | [facility] | | [address] | | | - [...] | | POC | | | [facility] | | | | | [...] [address] | [place] | [phone] | | [facility] | | [address] | | | - LABORATORY | | [...] [address] | [place] | [phone] | | [facility] | | [address] | | | - LABORATORY | | [...] [address] | [place] | [phone] | | [facility] | | [address] | | | - LABORATORY | | [...] ST. | [address] | [place], [place] | [phone] | | [facility] | | [address] | | | - LABORATORY | | [...] | | MEDICAL | | | | mL/min/1.84n1Isvh than | | CENTER - | | [...] + | [facility] | [address] | [place] | [phone] | | [facility] | | [address] | | | - LABORATORY | | [...] | | Blood in | | | [facility] | | | 1st | | | [...] + | [facility] | [address] | [place] | [phone] | | [facility] | | [address] | | | - LABORATORY | | [...] [address] | [place] | [phone] | | [facility] | | [address] | | | - LABORATORY | | [...] + | [facility] | [address] | [place] | [phone] | | [facility] | | [address] | | | - LABORATORY | | [...] ST. | [address] | [place], [place] | [phone] | | [facility] | | [address] | | | - LABORATORY | | [...] + | [facility] | [address] | [place] | [phone] | | [facility] | | [address] | | | - LABORATORY | | [...] [address] | [place] | [phone] | | [facility] | | [address] | | | - LABORATORY | | | | + + + + + Sedimentation Rate (06/02/2019 7:10 PM PDT) + +-------+ + + + | Component | Value | Ref Range | Performed | Pathologist | | | | | At | Signature | + +-------+ + + + | Erythrocyte | 10 | <30 mm/hr | [facility] | | | | | | ST. [...] [address] | [place] | [phone] | | [facility] | | [address] | | | - LABORATORY | | [...] + | [facility] | [address] | [place] | [phone] | | [facility] | | [address] | | | - LABORATORY | | [...] [address] | [place] | [phone] | | [facility] | | [address] | | | - LABORATORY | | [...] [address] | [place] | [phone] | | [facility] | | [address] | | | - LABORATORY | | [...] + | [facility] | [address] | [place] | [phone] | | [facility] | | [address] | | | - LABORATORY | | [...] [address] | [place] | [phone] | | [facility] | | [address] | | | - LABORATORY | | | | + + + + + Red Blood Cells (PRBC) - Crossmatch (06/02/2019 12:03 AM PDT) + + + + + + | Component | Value | Ref Range | Performed | Pathologist | | | | | At | Signature | + + + + + + | Product | [id number] | | [facility] | | | Code | | | [facility] | | | | | | MEDICAL | | | | | | CENTER - | | | | | | BLOOD BANK | | + + + + + + | UNIT # | [id number] | | [facility] | | | | [...] + + + + | Blood | [id number] | | [facility] | | | Product [...] St | [place] | | | [facility] | | [address] | | | - BLOOD BANK | [...] [address] | [place] | [phone] | | [facility] | | [address] | | | - LABORATORY | | [...] [facility] | | | | | | [facility] | | | | | [...] + | [facility] | [address] | [place] | [phone] | | [facility] | | [address] | | | - LABORATORY | | [...] | | MEDICAL | | | | mL/min/1.83n1Zgxp than | | CENTER - | | [...] [address] | [place] | [phone] | | [facility] | | [address] | | | - LABORATORY | | [...] ST. | [address] | [place] | | | [facility] | | [address] | | | - BLOOD BANK | [...] [address] | [place] | [phone] | | [facility] | | [address] | | | - LABORATORY | | [...] [address] | [place] | [phone] | | [facility] | | [address] | | | - LABORATORY | | [...] [address] | [place] | [phone] | | [facility] | | [address] | | | - LABORATORY | | [...] [address] | [place] | [phone] | | [facility] | | [address] | | | - LABORATORY | | [...] method in use as of | | [facility] | | | | December [...] [address] | [place] | [phone] | | [facility] | | [address] | | | - LABORATORY | | [...] | [address] | [place], [place] | [phone] | | [facility] | | [address] | | | - LABORATORY | | [...] [address] | [place] | [phone] | | [facility] | | [address] | | | - LABORATORY | | [...] [address] | [place] | [phone] | | [facility] | | [address] | | | - LABORATORY | | [...] | | | | | | n [place] | | | | | + + [...] | | | | | | [place] | | | | | + + [...] [address] | [place] | [phone] | | [facility] | | [address] | | | - LABORATORY | | [...] + | [facility] | [address] | [place] | [phone] | | [facility] | | [address] | | | - LABORATORY | | [...] | [address] | [place], [place] | [phone] | | [facility] | | [address] | | | - LABORATORY | | [...] [address] | [place] | [phone] | | [facility] | | [address] | | | - LABORATORY | | [...] | | | | | | [employer] | | | | | [...] [address] | [place] | [phone] | | [facility] | | [address] | | | - LABORATORY | | [...] [address] | [place] | [phone] | | [facility] | | [address] | | | - LABORATORY | | [...] | | MEDICAL | | | | mL/min/1.04z0Cyba than | | CENTER - | | [...] [address] | [place] | [phone] | | [facility] | | [address] | | | - LABORATORY | | [...] associated prominence of the ventricles. There are qfiw-vt-zcckkqby | | | scattered regions of periventricular [...] associated prominence of the ventricles. There are lmxt-vi-wkxfbjgg | | scattered regions of periventricular and [...] + | [facility] | [address] | [place] | [phone] | | [facility] | | [address] | | | - LABORATORY | | [...] | | | | | | [employer] | | | | | [...] [address] | [place] | [phone] | | [facility] | | [address] | | | - LABORATORY | | [...] | nRBC | | K/uL | [facility] | | | | | [...] [address] | [place] | [phone] | | [facility] | | [address] | | | - LABORATORY | | [...] mL/min/1.73m2 | [facility] | | | [place] | | | MEDICAL | | | [...] [address] | [place] | [phone] | | [facility] | | [address] | | | - LABORATORY | | [...] - 1.030 | [facility] | | | [place], | | | [facility] | | [...] [address] | [place] | [phone] | | [facility] | | [address] | | | - LABORATORY | | [...] + | [facility] | [address] | [place] | [phone] | | [facility] | | [address] | | | - LABORATORY | | [...] | | | | mmol/L | [facility] | | | | | [...] + | [facility] | [address] | [place] | [phone] | | [facility] | | [address] | | | - [...] | + + + + + | [facility] | [address] | [place] | [phone] | | [facility] | | [address] | | | - LABORATORY | | [...] | | | | | | [employer] | | | | | [...] [address] | [place] | [phone] | | [facility] | | [address] | | | - LABORATORY | | [...] [address] | [place] | [phone] | | [facility] | | [address] | | | - LABORATORY | | [...] + | [facility] | [address] | [place] | [phone] | | [facility] | | [address] | | | - LABORATORY | | [...] | | MEDICAL | | | | mL/min/1.28v8Kojf than | | CENTER - | | [...] 8.3 (L) | 8.7 - 10.4 | [facility] | | | | | mg/dL | [...] [address] | [place] | [phone] | | [facility] | | [address] | | | - LABORATORY | | [...] + | [facility] | [address] | [place] | [phone] | | [facility] | | [address] | | | - LABORATORY | | [...] | [address] | [place] | [phone] | | [facility] | | [address] | | | - LABORATORY | | [...] | | | | | | lateral [place] age | | | | | | [...] | | | | LEONIDAS CALVO MD ([id number]) | | | | | | on [...] unspecified provider. | | + + + COMPUTER FIELD TECHNICIAN REPORT - EXTERNAL SCAN (02/16/2019 12:00 [...] | | | | First dose on [facility] 06/03/19 at 2100 | | | | [...] | | | | | | use [place] 10/325 if ordered. If | | | [...] | | | | | | | 9741-2439 Use NIGHT DOSE for | | | | | | | doses scheduled: HS, 3AM, | | | | | | | Nighttime 5887-8724 If the BG is | | | [...] | | | | | dose on [facility] 06/03/19 at 2100 | | | | [...] medications/reasons PHARMACY | | | CONSULT, Starting [facility] 06/10/19 at | | | 1524, Pharmacy [...] | | | | First dose on [facility] 06/12/19 at 0900, | | AM [...]
--- OUTSIDE RECORDS SUMMARY | ~2020-03-14 | XMS | Encounter Summary ---
Demographics + + + | Address | [address] | | | [place] [address] | + + + | Home Phone [...] Team Providers + +------+ + | Care Agricultural Research Technologist Name | Role | Phone | [...] + + | 03/14/ | Telephone | [facility] | Nikolay, | Dressing Change | | 2020 | | MEDICINE [address] | MD Candido | | | | | [facility] | [address] [place] [address] | | | | | [place] [address] | [place] [address] | | | | | [phone] | | | | | | | [...] | | 2019 | Visit | | EYE[employer]ASS FRAME TRUER [address] | | | | | | [place] | | | | | | [address] | | | | | | | | +--------+ + + + + | 04/11/ | Appointment | Radiology | Shawn Michael | | | 2019 | | | MD [address] | | | | | | [address] [place] | | | | | | [place] [address] | | | | | | [phone] | | | | | | | | +--------+ + + + + | 04/13/ | Office | Cardiology | Shawn Michael | | | 2019 | Visit | | MD [address] | | | | | | [address] [place] | | | | | | [place] [address] | | | | | | [phone] | | | | | | | [...]
--- OUTSIDE RECORDS SUMMARY | ~2020-03-14 | XMS | Encounter Summary ---
Demographics + + + | Address | [address] | | | [place] [address] | + + + | Home Phone [...] Team Providers + +------+ + | Care Airworthiness Safety Inspector Name | Role | Phone | [...] [place] | | | | | | [address] | | | | | | [phone] | | | +--------+ + + + [...] | | 2019 | Visit | | POST ANESTHESIA ROOM NURSE [address] | | | | | | [place] | | | | | | [address] | | | | | | | | +--------+ + + + + | 04/11/ | Appointment | Radiology | Shawn Michael | | | 2019 | | | MD [address] | | | | | | [address] [place] | | | | | | [place] [address] | | | | | | [phone] | | | | | | | | +--------+ + + + + | 04/13/ | Office | Cardiology | Shawn Michael | | | 2019 | Visit | | MD [address] | | | | | | [address] [place] | | | | | | [place], [place] [address] | | | | | | [phone] | | | | | | | [...]
--- OUTSIDE RECORDS SUMMARY | ~2020-03-14 | XMS | Encounter Summary ---
Demographics + + + | Address | [address] | | | [place] [address] | + + + | Home Phone [...] Team Providers + +------+ + | Care Regulatory And Compliance Technician Name | Role | Phone | [...] + | 08/16/ | Telephone | [facility] | Martine Gaitan, | Other | | 2019 | | [facility] | [address] | | | | | [address] | [place] | | | | | [place] | [address] | | | | | [address] | | | | | | [phone] | | | +--------+ + + + [...] | | 2020 | Visit | | ADJUNCT ART HISTORY INSTRUCTOR [address] | | | | | | [place] | | | | | | [address] | | | | | | | | +--------+ + + + + | 04/11/ | Appointment | Radiology | Shawn Michael | | | 2019 | | | MD [address] | | | | | | [address] [place] | | | | | | [place] [address] | | | | | | [phone] | | | | | | | | +--------+ + + + + | 04/13/ | Office | Cardiology | Shawn Michael | | 2019 | Visit | | MD [address] | | | | | | [address] [place] | | | | | | [place] [address] | | | | | | [phone] | | | | | | | [...]
--- OUTSIDE RECORDS SUMMARY | ~2020-03-14 | XMS | Encounter Summary ---
Demographics + + + | Address | [address] | | | [place] [address] | + + + | Home Phone [...] Providers + +------+ + | Care Merchandising Director Name | Role | Phone | [...] Coordination | | 2019 | | MEDICINE [address] [place] [address] | MD Candido | | | | | [place] Kathy | [address] [place] [address] | | | | | [place] [address] | [place] [address] | | | | | [phone] | [phone] | | | | | | | [...] | | 2019 | Visit | | NAVAL AIRCREWMAN HELICOPTER [address] | | | | | | [place] | | | | | | [address] | | | | | | | | +--------+ + + + + | 04/11/ | Appointment | Radiology | Shawn Michael | | | 2019 | | | MD [address] | | | | | | [address] [place] | | | | | | [place] [address] | | | | | | [phone] | | | | | | | | +--------+ + + + + | 04/13/ | Office | Cardiology | Shawn Michael | | | 2019 | Visit | | MD [address] | | | | | | [address] [place] | | | | | | [place] [address] | | | | | | [phone] | | | | | | | [...]
--- OUTSIDE RECORDS SUMMARY | ~2020-03-14 | XMS | Encounter Summary ---
Demographics + + + | Address | [address] | | | [place] [address] | + + + | Home Phone [...] Providers + +------+ + | Care Supervisor Pastry Name | Role | Phone | + [...] [place] | | | | | | [address] | | | | | | [phone] | | | +--------+ + + + [...] [place] | | | | | | [address] | | | | | | | | +--------+ + + + + | 04/11/ | Appointment | Radiology | Shawn Michael | | | 2019 | | | MD [address] | | | | | | [address] [place] | | | | | | [place] [address] | | | | | | [phone] | | | | | | | | +--------+ + + + + | 04/13/ | Office | Cardiology | Shawn Michael | | 2019 | Visit | | MD [address] | | | | | | [address] [place] | | | | | | [place] [address] | | | | | | [phone] | | | | | | | [...]
--- OUTSIDE RECORDS SUMMARY | ~2020-03-14 | XMS | Encounter Summary ---
Demographics + + + | Address | [address] | | | [place] [address] | + + + | Home Phone [...] Team Providers + +------+ + | Care Blue Leather Sorter Name | Role | Phone | + [...] + + + + | 08/20/ | Telephone | [facility] | Martine Gaitan, | Other | | 2019 | | [facility] | [address] | | | | | [address] | [place] | | | | | [place] | [address] | | | | | [address] | | | | | | [phone] | | | +--------+ + + + [...] | | 2020 | Visit | | FINAL INSPECTOR AND TESTER [address] | | | | | | [place] | | | | | | [address] | | | | | | | | +--------+ + + + + | 04/11/ | Appointment | Radiology | Shawn Michael | | | 2019 | | | MD [address] | | | | | | [address] [place] | | | | | | [place] [address] | | | | | | [phone] | | | | | | | | +--------+ + + + + | 04/13/ | Office | Cardiology | Shawn Michael | | 2019 | Visit | | MD [address] | | | | | | [address] [place] | | | | | | [place] [address] | | | | | | [phone] | | | | | | | [...]
--- OUTSIDE RECORDS SUMMARY | ~2020-03-14 | XMS | Encounter Summary ---
Demographics + + + | Address | [address] | | | [place] [address] | + + + | Home Phone [...] Team Providers + +------+ + | Care Groundwater Programs Director Name | Role | Phone | [...] + + + + | 09/13/ | Home Care | [facility] | Juliana Rizvi, | SN REPEAT VISIT | | 2019 | Visit | [place] [address] | [place] | | | | | [place] | | | | | | [address] | | | | | | [phone] | | | +--------+ + + + [...] + + + | Blood Pressure | 104/56 | 09/13/2019 12:55 PM | | | | | PST | | + + + + + | Pulse | 78 | 09/13/2019 12:55 PM | | | | | PST | | + + + + + | Temperature | 36.6 C (97.9 F) | 09/13/2019 12:55 PM | | | | | PST | | + + + + + | Respiratory Rate | 24 | 09/13/2019 12:55 PM | | | | | PST | | + + + + + | Oxygen Saturation | 95% | 09/13/2019 12:55 PM | | | | | PST [...] [place] | | | | | | [address] | | | | | | | | +--------+ + + + + | 04/11/ | Appointment | Radiology | Shawn Michael | | | 2019 | | | MD Marcelino [address] | | | | | | [address] | | | | | | [place] [address] | | | | | | [phone] | | | | | | | | +--------+ + + + + | 04/13/ | Office | Cardiology | Shawn Michael | | | 2019 | Visit | | MD Marcelino [address] | | | | | | [address] [place] | | | | | | [place] [address] | | | | | | [phone] | | | | | | | [...] - REPEAT VISIT | | Discipline - Intermediate | + + + + +--------+--------+ + [...] 2018 | | | interventio | | Intermediate | infusion. | | | | n [...] | linked to | interventio | | Intermediate | | 019 | | scheduled/d | [...] Active | linked to | | | Intermediate | | 2019 | | scheduled/d | [...] | linked to | interventio | | Intermediate | | 2019 | | scheduled/d | [...] | | scheduled/d | ns | | Intermediate | | | | ocumented | scheduled/d [...] 08/28/ | Active | | | | Intermediate | | 2018 | | | interventio [...] | linked to | interventio | | Intermediate | CHRONIC OXYGEN USE | 2019 | [...] | linked to | interventio | | Intermediate | | 019 | | scheduled/d | [...] | | | | as presented in [facility] | | | | | | [...] | | + + +--------+--------+ + | IV dressing Change | Problem: | | | PICC line dressing | | Description: | Central/Midline | Comple | | changed per [facility] | | Transparent dressing | IVGoal: HH SN IV | yoel | | protocol. Infusion caps | | change , sterile | CENTRAL LINE | | | primed and changed. | | central line | | | | | | dressing 7 days | | | | | | after insertion, | | | | | | then weekly and PRN. | | | | | | every Friday and | | | | | | PRN. | | | | | + + [...] risk | Problem: SHARED | | | Patient using FWW at | | identified | FALLS | Comple | | all times and SBA. NO | | Description: RN to | | yoel | | further falls. | | assess patient | | | | Reinstructed in safety. | | history of falls at | | | | | | each home visit. | | | | | + + +--------+--------+ + | Monitor and | Problem: SHARED | | | Chronic pain, using | | Address Pain | PAINGoal: PAIN | Comple | | hydrocodone every 6 | | Description: | | yoel | | hours as needed with | | Monitor and address | | | | good relief. | | pain through use of | [...] medications | Medication | Comple | | son on medication | | Description: | ManagementGoal: | yoel | | administration, purpose, | [...] to | | | | patient and son.The | | leave updated | | | | patient and/or caregiver | | medication list in | | | | verbalized | | pt's home. | | | | understanding of all | | | | | | medication(s) [...] to | | Description: Wound | ManagementGoal: | Comple | | left lateral calf | | Type: skin tear | SN WOUND MANAGEMENT | yoel | | performed by . Old | | Location: LLE wound | | | | dressing removed. Well | | care: Cleanse with | | | | tolerated by patient.. | | Normal saline, apply | | | | Site Cleanse with, | | nonadherent gauze, | | | | aseptic cleanser. Patted | | cover with kerlex, | | | | dry. Applied dry and 4 | | and secure with | | | | x 4 gauze. Secured | | coban. Frequency:1-2 | | | | kerlix and tape. See | | X week PRN | | | | Wound Assessment form | | | | | | for measurements and | | | | | | status of wound. | + + +--------+--------+ + documented in this encounter"
--- OUTSIDE RECORDS SUMMARY | ~2020-03-14 | XMS | Encounter Summary ---
Demographics + + + | Address | [address] | | | [place] [address] | + + + | Home Phone [...] Providers + +------+ + | Care Ocean Transportation Intermediary Name | Role | Phone | + [...] + + + + | 07/19/ | Home Care | [facility] [place] | Bernardo Souza | OT REPEAT VISIT | | 2018 | Visit | [place] [address] | [place], [place] | | | | | [place] | | | | | | [address] | | | | | | [phone] | | | +--------+ + + + [...] + | Blood Pressure | 120/68 | 07/19/2019 10:18 AM | | | | | PDT | | + + + + + | Pulse | 108 | 07/19/2019 10:18 AM | | | | | PDT | | + + + + + | Temperature | 36.7 C (98 F) | 07/19/2019 10:18 AM | | | | | PDT | | + + + + + | Respiratory Rate | - | - | | + + + + + | Oxygen Saturation | 96% | 07/19/2019 10:18 AM | | | | | PDT [...] [place] | | | | | | [address] | | | | | | | | +--------+ + + + + | 04/11/ | Appointment | Radiology | Shawn Michael | | | 2019 | | | MD [address] | | | | | | [address] | | | | | | [place] [address] | | | | | | [phone] | | | | | | | | +--------+ + + + + | 04/13/ | Office | Cardiology | Shawn Michael | | 2019 | Visit | | Marcelino, MD [address] | | | | | | [address] | | | | | | [place] [address] | | | | | | [phone] | | | | | | | [...] goal | | STRENGTH | re-education | | Active | linked to | [...] STRENGTH | STRENGTH | | | | + + +--------+-------+ + + + +--------+--------+ + | Intervention | Associated | Status | Varian | Visit Notes | | | Problem/Goal | | ce | | + + +--------+--------+ + | Establish and/or | Problem: HH OT HEP | | | | | Progress HEP | NEEDGoal: OT HOME | Comple | | | [...] | | | | Description: | STRENGTHGoal: OT | yoel | | | | Occupational | IMPAIRED STRENGTH | | | | | Therapist to visit | | | | | | for muscle | | | | | | re-education related | | | | | | to decreased | | | | | | strength and | | | | | | endurance in BUE. | | | | | + + +--------+--------+ + documented in this encounter"
--- OUTSIDE RECORDS SUMMARY | ~2020-03-14 | XMS | Encounter Summary ---
Demographics + + + | Address | [address] | | | [place] [address] | + + + | Home Phone [...] Team Providers + +------+ + | Care Carton Maker Name | Role | Phone | [...] [place] | | | | | | [address] | | | | | | [phone] | | | +--------+ + + + [...] | | | | | [place] [address] | | | | | | [phone] | | | | | | | | +--------+ + + + + | 04/13/ | Office | Cardiology | Shawn Michael | | | 2019 | Visit | | MD Marcelino [address] | | | | | | [address] [place] | | | | | | [place] [address] | | | | | | [phone] | | | | | | | [...] - REPEAT VISIT | | Discipline - Longterm | + [...] 2018 | | | interventio | | Longterm | infusion. | | | | ns [...] | interventio | | Longterm | | 019 | | scheduled/d | ns | | | | | | ocumented | scheduled/d | | | | | | interventio | ocumented | | | | | | n | in this | | | | | | | visit | + + +--------+--------+ + + | HH Aide Need | HUB CUTTER APPRENTICE services | | | - | 1 problem | | Disciplines: | needed | | Active | | | | Longterm, | | 019 | | | interventio [...] 2019 | | | interventio | | Longterm [...] Active | linked to | | | Longterm | | 2019 | | scheduled/d | [...] | interventio | | Longterm | | 2019 | | scheduled/d | [...] | | scheduled/d | ns | | Longterm | | | | ocumented | scheduled/d [...] | | scheduled/d | n | | Longterm | | | | ocumented | scheduled/d [...] 08/28/ | Active | | | | Longterm | | 2019 | | | interventio [...] | | | | visit | | School Psychologist, Physical | | | | | | | Rf Test Technician | | | | | | + + +--------+--------+ + + | Respiratory Status | Respiratory Status | | | 1 goal | 1 goal | | Disciplines: | DIAGNOSIS COPD, | 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 See HUB CUTTER APPRENTICE | | | | yoel | | [...] | | | | | to [facility] for | | | | | | [...] | | | | | | (possible FOOD SERVER | | | | | | referral). [...] | | | | | | IS [place] [employer] | | | | | [...] | | | | | and provide [facility] | | | | | | CHF [...] provide | | | | | | [facility] teaching | | | | | | [...]
--- OUTSIDE RECORDS SUMMARY | ~2020-03-14 | XMS | Encounter Summary ---
Demographics + + + | Address | [address] | | | [place] [address] | + + + | Home Phone [...] Team Providers + +------+ + | Care Burnishing Machine Operator Name | Role | Phone [...] MD Candido | | | | | [facility] | [address] [place] [address] | | | | | [place] [address] | [place] [address] | | | | | [phone] | [phone] | | | | | | | [...] | | 2019 | Visit | | RESTAURANT LEAD [address] | | | | | | [place] | | | | | | [address] | | | | | | | | +--------+ + + + + | 04/11/ | Appointment | Radiology | Shawn Michael | | | 2019 | | | MD [address] | | | | | | [address] [place] | | | | | | [place] [address] | | | | | | [phone] | | | | | | | | +--------+ + + + + | 04/13/ | Office | Cardiology | Shawn Michael | | | 2019 | Visit | | MD [address] | | | | | | [address] [place] | | | | | | [place], [place] [address] | | | | | | [phone] | | | | | | | [...]
--- OUTSIDE RECORDS SUMMARY | ~2020-03-14 | XMS | Encounter Summary ---
Demographics + + + | Address | [address] | | | [place] [address] | + + + | Home Phone [...] Team Providers + +------+ + | Care Support Services Tech Name | Role | Phone | [...] [place] | | | | | | [address] | | | | | | [phone] | | | +--------+ + + + [...] [place] | | | | | | [address] | | | | | | | | +--------+ + + + + | 04/11/ | Appointment | Radiology | Shawn Michael | | | 2019 | | | MD Marcelino [address] | | | | | | [address] | | | | | | [place] [address] | | | | | | [phone] | | | | | | | | +--------+ + + + + | 04/13/ | Office | Cardiology | Shawn Michael | | 2019 | Visit | | MD Marcelino [address] | | | | | | [address] | | | | | | [place] [address] | | | | | | [phone] | | | | | | | [...]
--- OUTSIDE RECORDS SUMMARY | ~2020-03-14 | XMS | Encounter Summary ---
Demographics + + + | Address | [address] | | | [place] [address] | + + + | Home Phone [...] Team Providers + +------+ + | Care Plsql Developer Name | Role | Phone | [...] + + | 12/29/ | Telephone | [facility] | Nikolay, | Medication Question | | 2019 | | MEDICINE [address] [place] [address] | MD Candido | | | | | [facility] | [address] [place] [address] | | | | | [place] [address] | [place] [address] | | | | | [phone] | [phone] | | | | | | | [...] | | 2019 | Visit | | ORTHO NURSE [address] | | | | | | [place] | | | | | | [address] | | | | | | | | +--------+ + + + + | 04/11/ | Appointment | Radiology | Shawn Michael | | | 2019 | | | MD [address] | | | | | | [address] [place] | | | | | | [place] [address] | | | | | | [phone] | | | | | | | | +--------+ + + + + | 04/13/ | Office | Cardiology | Shawn Michael | | | 2019 | Visit | | MD [address] | | | | | | [address] [place] | | | | | | [place] [address] | | | | | | [phone] | | | | | | | [...]
--- OUTSIDE RECORDS SUMMARY | ~2020-03-14 | XMS | Encounter Summary ---
Demographics + + + | Address | [address] | | | [place] [address] | + + + | Home Phone | | + + + | Preferred Language | Unknown | + + + | Marital Status | | + + + | Hoahaoism Affiliation | Unknown | + + + | Race | Unknown | + + + | Ethnic Group | Unknown | + + + Author + + + | Author | [facility] | | | and [place] | + + + | Organization | [facility] | | [...] Team Providers + +------+ + | Care Faculty Support Coordinator Name | Role | Phone | [...] | 09/09/ | Home Care | [facility] [place] | Layla Pablo | CASE COMMUNICATION | | 2018 | Visit | [place] [address] | | | | | | [place] | | | | | | [address] | | | | | | [phone] | | | +--------+ + + + [...] [place] | | | | | | [address] | | | | | | | | +--------+ + + + + | 04/11/ | Appointment | Radiology | Shawn Michael | | | 2019 | | | MD Marcelino [address] | | | | | | [address] | | | | | | [place] [address] | | | | | | [phone] | | | | | | | | +--------+ + + + + | 04/13/ | Office | Cardiology | Shawn Michael | | | 2020 | Visit | | MD Marcelino [address] | | | | | | [address] | | | | | | [place] [address] | | | | | | [phone] | | | | | | | [...]
--- OUTSIDE RECORDS SUMMARY | ~2020-03-14 | XMS | Encounter Summary ---
Demographics + + + | Address | [address] | | | [place] [address] | + + + | Home Phone [...] Team Providers + +------+ + | Care Healthcare Network Consultant Name | Role | Phone | [...] + + | 06/23/ | Telephone | [facility] | Nikolay, | Other (Oxygen | | 2019 | | MEDICINE [address] | MD Candido | supplier) | | | | [facility] | [address] [place] [address] | | | | | [place] [address] | [place] [address] | | | | | [phone] | [phone] | | | | | | | [...] | | 2019 | Visit | | ATTENDING PATHOLOGIST [address] | | | | | | [place] | | | | | | [address] | | | | | | | | +--------+ + + + + | 04/11/ | Appointment | Radiology | Shawn Michael | | | 2019 | | | MD [address] | | | | | | [address] [place] | | | | | | [place] [address] | | | | | | [phone] | | | | | | | | +--------+ + + + + | 04/13/ | Office | Cardiology | Shawn Michael | | | 2019 | Visit | | MD [address] | | | | | | [address] [place] | | | | | | [place], [place] [address] | | | | | | [phone] | | | | | | | [...]
--- OUTSIDE RECORDS SUMMARY | ~2020-03-14 | XMS | Encounter Summary ---
Demographics + + + | Address | [address] | | | [place] [address] | + + + | Home Phone [...] Team Providers + +------+ + | Care Superintendent Warehouse Name | Role | Phone | + [...] Home Care | [facility] [place] | Jonel Lozano | PLATE FORMER SECONDARY EVAL | | 2020 | Visit | [place] [address] | S, LIBRARY CLERICAL ASSISTANT | | | | | ST [place] | [phone] | | | | | [address] | | | | | | [phone] | | | +--------+ + + + [...] [place] | | | | | | [id number] | | | | | | | | +--------+ + + + + | 04/11/ | Appointment | Radiology | Shawn Michael | | 2019 | | | MD Marcelino [address] | | | | | | [address] | | | | | | [place] [address] | | | | | | [phone] | | | | | | | | +--------+ + + + + | 04/13/ | Office | Cardiology | Maxood, Shawn | | | 2019 | Visit | | MD Marcelino [address] | | | | | | [address] | | | | | | [place] [address] | | | | | | [phone] | | | | | | | [...]
--- OUTSIDE RECORDS SUMMARY | ~2020-03-14 | XMS | Encounter Summary ---
Demographics + + + | Address | [address] | | | [place] [address] | + + + | Home Phone [...] Providers + +------+ + | Care Office Secretary Name | Role | Phone | + [...] [place] | [place] [address] | | | | | [address] | [phone] | | | | | [phone] | | | +--------+ + + + [...] | | | | | [place] [address] | | | | | | [phone] | | | | | | | | +--------+ + + + + | 04/13/ | Office | Cardiology | Shawn Michael | | | 2020 | Visit | | MD Marcelino [address] | | | | | | [address] [place] | | | | | | [place] [address] | | | | | | [phone] | | | | | | | [...]
--- OUTSIDE RECORDS SUMMARY | ~2020-03-14 | XMS | Encounter Summary ---
Demographics + + + | Address | [address] | | | [place] [address] | + + + | Home Phone [...] Team Providers + +------+ + | Care Slot Ambassador Name | Role | Phone | + [...] [place] | | | | | | [address] | | | | | | [phone] | | | +--------+ + + + [...] [place] | | | | | | [address] | | | | | | | | +--------+ + + + + | 04/11/ | Appointment | Radiology | Shawn Michael | | | 2019 | | | MD Marcelino [address] | | | | | | [address] | | | | | | [place] [address] | | | | | | [phone] | | | | | | | | +--------+ + + + + | 04/13/ | Office | Cardiology | Shawn Michael | | | 2020 | Visit | | MD Marcelino [address] | | | | | | [address] | | | | | | [place] [address] | | | | | | [phone] | | | | | | | [...]
--- OUTSIDE RECORDS SUMMARY | ~2020-03-14 | XMS | Encounter Summary ---
Demographics + + + | Address | [address] | | | [place] [address] | + + + | Home Phone [...] Team Providers + +------+ + | Care Production Estimator Name | Role | Phone | + [...] [place] | | | | | | [address] | | | | | | [phone] | | | +--------+ + + + [...] | | | | | [place] [address] | | | | | | [phone] | | | | | | | | +--------+ + + + + | 04/13/ | Office | Cardiology | Shawn Michael | | | 2019 | Visit | | MD Marcelino [address] | | | | | | [address] | | | | | | [place] [address] | | | | | | [phone] | | | | | | | [...]
--- OUTSIDE RECORDS SUMMARY | ~2020-03-14 | XMS | Encounter Summary ---
Demographics + + + | Address | [address] | | | [place] [address] | + + + | Home Phone [...] Team Providers + +------+ + | Care Sld Educational Aide Name | Role | Phone | [...] | | | | CENTER [address] | [address] [place] | unspecified | | | | [place], [place] | [place] [address] | laterality, | | | | [address] | [phone] | unspecified part of | | | | [phone] | | lung (Primary Dx) | +--------+ [...] | 2019 | Visit | | CHEMICAL PRODUCTION MACHINE OPERATOR [address] | | | | | | [place] | | | | | | [address] | | | | | | | | +--------+ + + + + | 04/11/ | Appointment | Radiology | Shawn Michael | | | 2019 | | | MD [address] | | | | | | [address] [place] | | | | | | [place] [address] | | | | | | [phone] | | | | | | | | +--------+ + + + + | 04/13/ | Office | Cardiology | Shawn Michael | | | 2019 | Visit | | MD [address] | | | | | | [address] [place] | | | | | | [place] [address] | | | | | | [phone] | | | | | | | [...]
--- OUTSIDE RECORDS SUMMARY | ~2020-03-14 | XMS | Encounter Summary ---
Demographics + + + | Address | [address] | | | [place] [address] | + + + | Home Phone [...] Providers + +------+ + | Care Process Area Supervisor Name | Role | Phone | [...] [place] | | | | | | [address] | | | | | | [phone] | | | +--------+ + + + [...] [place] | | | | | | [address] | | | | | | | | +--------+ + + + + | 04/11/ | Appointment | Radiology | Shawn Michael | | | 2019 | | | MD Marcelino [address] | | | | | | [address] | | | | | | [place] [address] | | | | | | [phone] | | | | | | | | +--------+ + + + + | 04/13/ | Office | Cardiology | Shawn Michael | | | 2020 | Visit | | MD Marcelino [address] | | | | | | [address] | | | | | | [place] [address] | | | | | | [phone] | | | | | | | [...]
--- OUTSIDE RECORDS SUMMARY | ~2020-03-14 | XMS | Encounter Summary ---
Demographics + + + | Address | [address] | | | [place] [address] | + + + | Home Phone [...] Team Providers + +------+ + | Care Facility Environmental Technician Name | Role | Phone | [...] [place] | | | | | | [address] | | | | | | [phone] | | | +--------+ + + + [...] [place] | | | | | | [address] | | | | | | | | +--------+ + + + + | 04/11/ | Appointment | Radiology | Shawn Michael | | | 2019 | | | MD Marcelino [address] | | | | | | [address] | | | | | | [place] [address] | | | | | | [phone] | | | | | | | | +--------+ + + + + | 04/13/ | Office | Cardiology | Zacharynnamdi Shawn | | | 2019 | Visit | | MD Marcelino [address] | | | | | | [address] [place] | | | | | | [place] [address] | | | | | | [phone] | | | | | | | [...] - REPEAT VISIT | | Discipline - Halfway | + + + + +--------+--------+ + [...] 2018 | | | interventio | | Halfway | infusion. | | | | ns [...] Active | linked to | | | Halfway | | 2019 | | scheduled/d | [...] | linked to | interventio | | Halfway | | 2019 | | scheduled/d | [...] | | scheduled/d | ns | | Halfway | | | | ocumented | scheduled/d [...] 08/28/ | Active | | | | Halfway | | 2019 | | | interventio [...] | | | | n | | Halfway, | | | | | scheduled/d | | Physical Therapy, | | | | | ocumented | | Occupational | | | | | in this | | Therapy, Case | | | | | visit | | Meat Team Lead, Physical | | | | | | | Fitness/Wellness Director | | | | | | + + +--------+--------+ + + | Respiratory Status | Respiratory Status | | | 1 goal | 2 goal | | Disciplines: | DIAGNOSIS COPD, | 08/28/ | Active | linked to | interventio | | Halfway | CHRONIC OXYGEN USE | 2018 | [...] | | | | as presented in [facility] | | | | | | [...] when to report to RN/MD | | [facility] GI teaching | | | | . [...]
--- OUTSIDE RECORDS SUMMARY | ~2020-03-14 | XMS | Encounter Summary ---
Demographics + + + | Address | [address] | | | [place] [address] | + + + | Home Phone [...] Team Providers + +------+ + | Care Paper Colorer Name | Role | Phone | + [...] + + | 08/27/ | Telephone | [facility] | Kaylyn Rivas, | TCM - Hosp [facility] | | 2019 | | MEDICINE [address] [place] [address] | [place] | | | | | [place] | | | | | | [place] [address] | | | | | | [phone] | | | +--------+ + + + [...] | | 2020 | Visit | | FIRE TECHNOLOGY INSTRUCTOR [address] | | | | | | [place] | | | | | | [address] | | | | | | | | +--------+ + + + + | 04/11/ | Appointment | Radiology | Shawn Michael | | | 2019 | | | MD [address] | | | | | | [address] [place] | | | | | | [place] [address] | | | | | | [phone] | | | | | | | | +--------+ + + + + | 04/13/ | Office | Cardiology | Shawn Michael | | 2019 | Visit | | MD [address] | | | | | | [address] [place] | | | | | | [place] [address] | | | | | | [phone] | | | | | | | [...]
--- OUTSIDE RECORDS SUMMARY | ~2020-03-14 | XMS | Encounter Summary ---
Demographics + + + | Address | [address] | | | [place] [address] | + + + | Home Phone [...] Team Providers + +------+ + | Care Affiliate Manager Name | Role | Phone | [...] + + | 06/22/ | Refill | [facility] | Nikolay, | Medication Refill | | 2019 | | MEDICINE [address] | MD Candido | | | | | [facility] | [address] [place] [address] | | | | | [place] [address] | [place] [address] | | | | | [phone] | [phone] | | | | | | | [...] | | 2019 | Visit | | BIOLOGICAL TECHNICAL OFFICER [address] | | | | | | [place] | | | | | | [address] | | | | | | | | +--------+ + + + + | 04/11/ | Appointment | Radiology | Shawn Michael | | | 2019 | | | MD Mynor [address] | | | | | | [address] [place] | | | | | | [place] [address] | | | | | | [phone] | | | | | | | | +--------+ + + + + | 04/13/ | Office | Cardiology | Shawn Michael | | | 2019 | Visit | | MD Mynor [address] | | | | | | [address] [place] | | | | | | [place], [place] [address] | | | | | | [phone] | | | | | | | [...]
--- OUTSIDE RECORDS SUMMARY | ~2020-03-14 | XMS | Encounter Summary ---
Demographics + + + | Address | [address] | | | [place] [address] | + + + | Home Phone [...] Team Providers + +------+ + | Care Clinic Physician Name | Role | Phone | + [...] [place] | | | | | | [address] | | | | | | [phone] | | | +--------+ + + + [...] [place] | | | | | | [id number] | | | | | | | | +--------+ + + + + | 04/11/ | Appointment | Radiology | Shawn Michael | | 2019 | | | MD Marcelino [address] | | | | | | [address] | | | | | | [place] [address] | | | | | | [phone] | | | | | | | | +--------+ + + + + | 04/13/ | Office | Cardiology | Shawn Michael | | | 2019 | Visit | | MD Marcelino [address] | | | | | | [address] [place] | | | | | | [place] [address] | | | | | | [phone] | | | | | | | [...]
--- OUTSIDE RECORDS SUMMARY | ~2020-03-14 | XMS | Encounter Summary ---
Demographics + + + | Address | [address] | | | [place] [address] | + + + | Home Phone [...] Team Providers + +------+ + | Care Strategic Intelligence Officer Name | Role | Phone | [...] | 07/13/ | Home Care | [facility] [place] | García Walker, PT | PT DISCIPLINE D/C | | 2019 | Visit | [place] [address] | [address] [facility] | | | | | [facility] [place] | [place] [address] | | | | | [address] | [phone] | | | | | [phone] | | | +--------+ + + + [...] + | Blood Pressure | 110/60 | 07/13/2019 10:29 AM | | | | | PDT | | + + + + + | Pulse | 103 | 07/13/2019 10:29 AM | | | | | PDT | | + + + + + | Temperature | 37.4 C (99.3 F) | 07/13/2019 10:29 AM | | | | | PDT | | + + + + + | Respiratory Rate | - | - | | + + + + + | Oxygen Saturation | 93% | 07/13/2019 10:29 AM | 3L | | | | PDT | [...] [place] | | | | | | [address] | | | | | | | | +--------+ + + + + | 04/11/ | Appointment | Radiology | Shawn Michael | | 2019 | | | MD Marcelino [address] | | | | | | [address] | | | | | | [place] [address] | | | | | | [phone] | | | | | | | | +--------+ + + + + | 04/13/ | Office | Cardiology | Shawn Michael | | | 2019 | Visit | | MD Marcelino [address] | | | | | | [address] | | | | | | [place] [address] | | | | | | [phone] | | | | | | | [...] PT DYSPNEA | HH PT DYSPNEA | Met | Yes | | | [...] PT GAIT/STAIRS | HH PT IMPAIRED | Not | Yes | needs SBA to manage | | Description: The | GAIT | met, | | oxygen and for anxiety | | patient will | | adequa | | | | ambulate 500 feet | | te for | | | | using least | | care | | | | restrictive AD | | transi | | | | independently., The | | tion | | | | patient will manage [...] PT STRENGTH | HH PT IMPAIRED | Not | Yes | strengthening limited | | Description: LE | STRENGTH | met, | | by poor endurance and | | strength 4+/5 or | | adequa | | chronic pain in knees | | greater for | | te for | | | | bilateral LE | | care | | | | strength. Outcomes: | | transi | | | | The patient's | | tion | | | | strength will | [...] PT TRANSFERS | HH PT IMPAIRED | Met | Yes | | | Description: Safe | TRANSFERS [...] | | | | Description: | DYSPNEAGoal: HH PT | Comple | | | | [...] using | | | | | | LRAD no weight | | | | | | bearing restrictions | | | | | + + [...] in | Problem: SHARED | | | | | Exercise/Mobility [...]
--- OUTSIDE RECORDS SUMMARY | ~2020-03-14 | XMS | Encounter Summary ---
Demographics + + + | Address | [address] | | | [place] [address] | + + + | Home Phone [...] Team Providers + +------+ + | Care Power Brake Operator Name | Role | Phone | [...] Visit | [place] [address] | BIOLOGY LECTURER [address] | | | | | [place] | [place] | | | | | [address] | [address] | | | | | [phone] | | | +--------+ + + + [...] | | | | | [place] [address] | | | | | | [phone] | | | | | | | | +--------+ + + + + | 04/13/ | Office | Cardiology | Julieta Michaelr | | | 2019 | Visit | | MD Marcelino [address] | | | | | | [address] [place] | | | | | | [place] [address] | | | | | | [phone] | | | | | | | [...]
--- OUTSIDE RECORDS SUMMARY | ~2020-03-14 | XMS | Encounter Summary ---
Demographics + + + | Address | [address] | | | [place] [address] | + + + | Home Phone [...] | | + + +---------+ + | Lyalajanelle Argueta | ECON | Unknown | | + + +---------+ + Care Team Providers + +------+ + | Care Case Worker Name | Role | Phone | [...] + + | 03/03/ | Telephone | [facility] | Janel, | TCM - Hosp [facility] | | 2020 | | [facility] | Brittany Schulz RN | | | | | [place] [address] | | | | | | [address] [place] | | | | | | [place] [address] | | | | | | [phone] | | | +--------+ + + + [...] | | | | | [place] | | | | | | [address] | | | | | | | | +--------+ + + + + | 04/11/ | Appointment | Radiology | Shawn Michael | | | 2019 | | | MD [address] | | | | | | [address] [place] | | | | | | [place] [address] | | | | | | [phone] | | | | | | | | +--------+ + + + + | 04/13/ | Office | Cardiology | Shawn Michael | | | 2019 | Visit | | MD [address] | | | | | | [address] [place] | | | | | | [place] [address] | | | | | | [phone] | | | | | | | [...]
--- OUTSIDE RECORDS SUMMARY | ~2020-03-14 | XMS | Encounter Summary ---
Demographics + + + | Address | [address] | | | [place] [address] | + + + | Home Phone | | + + + | Preferred Language | Unknown | + + + | Marital Status | | + + + | Bahai Affiliation | Unknown | + + + | Race | Unknown | + + + | Ethnic Group | Unknown | + + + Author + + + | Author | [facility] | | | and [place] | + + + | Organization | [facility] | | | [...] Providers + +------+ + | Care Senior Sales Administrator Name | Role | Phone | [...] [place] | | | | | | [address] | | | | | | [phone] | | | +--------+ + + + [...] | | | | | [place] [address] | | | | | | [phone] | | | | | | | | +--------+ + + + + | 04/13/ | Office | Cardiology | Shawn Michael | | | 2019 | Visit | | MD Marcelino [address] | | | | | | [address] | | | | | | [place] [address] | | | | | | [phone] | | | | | | | [...] | | | | | | horn, director public policy and | | | | | | [...]
--- OUTSIDE RECORDS SUMMARY | ~2020-03-14 | XMS | Encounter Summary ---
Demographics + + + | Address | [address] | | | [place] [address] | + + + | Home Phone [...] Team Providers + +------+ + | Care Weather Strip Mechanic Name | Role | Phone | [...] + + | 12/22/ | Telephone | [facility] | Nikolay, | Referral | | 2019 | | MEDICINE [address] [place] [address] | MD Candido | | | | | [facility] | [address] [place] [address] | | | | | [place] [address] | [place] [address] | | | | | [phone] | [phone] | | | | | | | [...] | | 2019 | Visit | | BRAND MARKETING SPECIALIST [address] | | | | | | [place] | | | | | | [address] | | | | | | | | +--------+ + + + + | 04/11/ | Appointment | Radiology | Shawn Michael | | | 2019 | | | MD [address] | | | | | | [address] [place] | | | | | | [place] [address] | | | | | | [phone] | | | | | | | | +--------+ + + + + | 04/13/ | Office | Cardiology | Shawn Michael | | 2019 | Visit | | MD Marcelino [address] | | | | | | [address] [place] | | | | | | [place] [address] | | | | | | [phone] | | | | | | | [...]
--- OUTSIDE RECORDS SUMMARY | ~2020-03-14 | XMS | Encounter Summary ---
Demographics + + + | Address | [address] | | | [place] [address] | + + + | Home Phone [...] Team Providers + +------+ + | Care Pan Puller Name | Role | Phone | + +------+ + | Candido Link | PCP | | | MD | | | + +------+ + Reason for Visit +--------+ + | Reason | Comments | +--------+ + | Other | Oxygen level test | +--------+ + Encounter Details +--------+---------+ + + + | Date | Type | Department | Care Team | Description | +--------+---------+ + + + | 06/23/ | Office | [facility] | Nikolay, | Centrilobular | | 2019 | Visit | MEDICINE [address] [place] [address] | MD Candido | emphysema (HCC) | | | | [facility] | [address] [place] [address] | (Primary Dx); | | | | [place] [address] | [place] [address] | Hypoxemia; Melena; | | | | [phone] | [phone] | Anemia, blood loss | | | | | [...] + + + | Blood Pressure | 126/60 | 06/23/2019 11:03 AM | | | | | PDT | | + + + + + | Pulse | 87 | 06/23/2019 11:03 AM | | | | | PDT | | + + + + + | Temperature | 36.4 C (97.5 F) | 06/23/2019 11:03 AM | | | | | PDT | | + + + + + | Respiratory Rate | 16 | 06/23/2019 11:03 AM | | | | | PDT | | + + + + + | Oxygen Saturation | 87% | 06/23/2019 11:45 AM | | | | | PDT | | + + + + + | Inhaled Oxygen | - | - | | | Concentration | | | | + + + + + | Weight | 55.6 kg (122 lb 9.2 | 06/23/2019 11:03 AM | | | | oz) | PDT | | + + + + + | Height | - | - | | + + + + + | Body Mass Index | 20.4 | 05/31/2019 7:00 PM | | | | | PDT | | + + + + + documented in this encounter Progress Notes Candido Link MD - 06/23/2019 11:00 AM PDTFormatting of this note might be d ifferent from the original. CHIEF COMPLAINT Chief Complaint Patient presents with Other Oxygen level test HPI Ángela Crowley is a 88 y.o. y/o female who presents today for several issues: Pt is here to test for oxygen level. She has been on Oxygen for about 5 years, 3L of oxygen . Lowest reading was 87% when she sat down and took a resting period without oxygen. POA states her stool was black and gooey last night. She does have some upper abdominal carl n/heartburn. Had an upper endoscopy showing only mild gastritis at the beginning of the fri. She also had a lower endoscopy showing severe diverticulosis. She has not had a camera study for her small intestine recently. REVIEW OF SYSTEMS Review of Systems Constitutional: Positive for fatigue. HENT: Negative. Eyes: Negative. Respiratory: Positive for shortness of breath. Cardiovascular: Negative. Gastrointestinal: Positive for blood in stool. Endocrine: Negative. Genitourinary: Negative. Allergic/Immunologic: Negative. Neurological: Negative. Psychiatric/Behavioral: Negative. PAST MEDICAL HISTORY Past Medical History: Diagnosis Date Aortic stenosis COPD (chronic obstructive pulmonary disease) ([facility]) Coronary artery disease FAMILY HISTORY [...] Sig; Surgeon: Edwin Stoddard MD; Location: [facility] PROCEDURE UNIT NIRMAL AND BSO TONSILLECTOMY AND ADENOIDECTOMY UPPER GASTROINTESTINAL ENDOSCOPY N/A 06/07/2019 Procedure: EGD; Surgeon: Edwin Stoddard MD; Location: [facility] MEDICAL PROCEDURE UNIT CURRENT MEDICATIONS Current Outpatient [...] 9 0 capsule 3 UNABLE TO FIND Portable Oxygen Concentrator Use to administer oxygen via NC 3l/min at rest ambulating/travelling. 1 each 0 No current facility-administered medications for this visit. ALLERGIES Allergies Allergen Reactions Percocet [Oxycodone] Unknown Pregabalin Unknown Lyrica Sulfa Antibiotics Unknown PHYSICAL EXAM VITAL SIGNS: BP 126/60 | Pulse 87 | Temp 36.4 C (97.5 F) (Temporal) | Resp 16 | Wt 55.6 kg (122 lb 9.2 oz) | SpO2 (!) 87% | ? No | BMI 20.40 kg/m Constitutional: Thin, frail, No acute distress, Pleasant female. Cardiovascular: Regular rate & rhythm, No murmurs, No rubs, No gallops. No lower extremitie s edema. Thorax & Lungs: Normal chest, No respiratory distress, No crackles, wheezing, or rubs. Abdomen: Bowel sounds normal, Soft, No tenderness, No masses, No HSM, no masses. Skin: panel, No rash. Musculoskeletal: Good range of motion in all major joints. No tenderness to palpation or ma yohannes deformities noted. Neurologic: Alert & oriented x 3, Normal motor function, Normal sensory function, No focal deficits noted. Psychiatric: Affect normal, Judgment normal, Mood normal. ASSESSMENT & PLAN 1. Centrilobular emphysema (HCC) 2. Hypoxemia - UNABLE TO FIND; Portable Oxygen Concentrator Use to administer oxygen via NC 3l/min at rest ambulating/travelling. Dispense: 1 each; Re fill: 0 3. Melena - CBC with Differential; Future -If her hemoglobin has decreased significantly she may need to go back and see GI to have f urther testing such as a small intestine camera study. 4. Anemia, blood loss - CBC with Differential; Future FOLLOW-UP No follow-ups on file. Note: Parts of this documentwere created using [employer] speech recognition software. As a r esult, there may be unintended word spelling errors. Every attempt was made to correct the dictation. documente d in this encounter Plan of Treatment +--------+ + + + + | Date | Type | Specialty | Care Team | Description | +--------+ + + + + | 03/23/ | Office | Anticoagulation | García Harris, | | | 2019 | Visit | | ASSISTANT PASSENGER LOCOMOTIVE ENGINEER[address] | | | | | | [place] | | | | | | [id number] | | | | | | | | +--------+ + + + + | 04/11/ | Appointment | Radiology | Shawn Michael | | | 2020 | | | MD [address] | | | | | | [address] [place] | | | | | | [place] [address] | | | | | | [phone] | | | | | | | | +--------+ + + + + | 04/13/ | Office | Cardiology | Shawn Michael | | | 2020 | Visit | | MD [address] | | | | | | [address] [place] | | | | | | [place] [address] | | | | | | [phone] | | | | | | | | +--------+ + + + + documented as of this encounter Procedures + +--------+ + + + | Procedure Name | Priori | Date/Time | Associated Diagnosis | Comments | | | ty | | | | + +--------+ + + + | DIAGNOSTIC REPORT - | | 06/23/2019 | | Results for this | | EXTERNAL SCAN | | 12:00 AM | | procedure are in the | | | | PDT | | results section. | + +--------+ + + + documented in this encounter Results CBC with Differential (07/02/2019 12:21 PM PDT) + + + + + + | Component | Value | Ref Range | Performed | Pathologist | | | | | At | Signature | + + + + + + | WBC | 10.2 | 4.0 - 11.0 K/uL | [facility] | | | | | | [facility] | | | | | | [facility] | | | | | | [facility] - | | | | | | LABORATORY | | + + + + + + | RBC | 3.51 (L) | 3.70 - 5.20 | [facility] [...] + + + + | Hematocrit | 33.5 (L) | 34.0 - 47.0 % | [...] + + + + | % | 79.0 | 45.0 - 82.0 % | [facility] [...] + + + | % Monocytes | 8.0 | 4.0 - 12.0 % | [facility] | | | [facility] | [facility] | | | | | | [facility] | | | | | | [facility] - | | | | | | LABORATORY | | + + + + + + | % | 2.8 | 0.0 - 5.0 % | [facility] [...] + + + + | Absolute | 8.08 | 1.80 - 8.50 | [facility] | | | Neutrophils | | K/uL | [facility] | | | | | | [facility] | | | | | | [facility] - | | | | | | LABORATORY | | + + + + + + | Absolute | 0.93 | 0.60 - 3.20 | [facility] | [...] | Absolute | 0.29 | 0.00 - 0.40 | [facility] | [...] | [address] | [place] | [phone] | | [facility] | | [address] | | | - LABORATORY | | | | + + + + + DIAGNOSTIC REPORT - EXTERNAL SCAN (06/23/2019 12:00 AM PDT) + + + | Narrative | Performed At | + + + | Ordered by an | | | unspecified provider. | | + + + documented in this encounter Visit Diagnoses + + | Diagnosis | + + | Centrilobular emphysema (HCC) - Primary | + + | Hypoxemia | + + | Melena Blood in stool | + + | Anemia, blood loss Iron deficiency anemia secondary to blood loss (chronic) | + + documented in this encounter Additional Health Concerns + + + + | Infection | Noted Time | Resolved Time | + + + + | Methicillin-resistant Staphylococcus aureus | 06/08/2019 9:39 AM | | | | PDT | | + + + + documented as of this encounter"
--- OUTSIDE RECORDS SUMMARY | ~2020-03-14 | XMS | Encounter Summary ---
Demographics + + + | Address | [address] | | | [place] [address] | + + + | Home Phone [...] Team Providers + +------+ + | Care Vision Impaired Teacher Name | Role | Phone | [...] | | | [address] [place] | [place] [address] | | | | | [place] [address] | | | | | | [phone] | | | +--------+ + + + [...] | | 2019 | Visit | | GAMING WORKER [address] | | | | | | [place] | | | | | | [address] | | | | | | | | +--------+ + + + + | 04/11/ | Appointment | Radiology | Shawn Michael | | | 2019 | | | MD [address] | | | | | | [address] [place] | | | | | | [place], [place] [address] | | | | | | [phone] | | | | | | | | +--------+ + + + + | 04/13/ | Office | Cardiology | Shawn Michael | | 2019 | Visit | | MD [address] | | | | | | [address] [place] | | | | | | [place] [address] | | | | | | [phone] | | | | | | | [...]
--- OUTSIDE RECORDS SUMMARY | ~2020-03-14 | XMS | Encounter Summary ---
Demographics + + + | Address | [address] | | | [place] [address] | + + + | Home Phone [...] Providers + +------+ + | Care Tube Operator Name | Role | Phone | [...] [place] | | | | | | [address] | | | | | | [phone] | | | +--------+ + + + [...] | 2019 | Visit | | SENIOR USER EXPERIENCE ARCHITECT [address] | | | | | | [place] | | | | | | [address] | | | | | | | | +--------+ + + + + | 04/11/ | Appointment | Radiology | Shawn Michael | | | 2019 | | | MD [address] | | | | | | [address] [place] | | | | | | [place] [address] | | | | | | [phone] | | | | | | | | +--------+ + + + + | 04/13/ | Office | Cardiology | Shawn Michael | | | 2019 | Visit | | MD [address] | | | | | | [address] [place] | | | | | | [place] [address] | | | | | | [phone] | | | | | | | [...]
--- OUTSIDE RECORDS SUMMARY | ~2020-03-14 | XMS | Encounter Summary ---
Demographics + + + | Address | [address] | | | [place] [address] | + + + | Home Phone [...] Providers + +------+ + | Care Surgical Tech Name | Role | Phone | [...] + + | 08/02/ | Telephone | [facility] | Nikolay, | ED Follow-up | | 2019 | | MEDICINE [address] [place] [address] | MD Candido | | | | | [facility] | [address] [place] [address] | | | | | [place] [address] | [place] [address] | | | | | [phone] | [phone] | | | | | | | [...] | | 2019 | Visit | | PST MANAGER [address] | | | | | | [place] | | | | | | [address] | | | | | | | | +--------+ + + + + | 04/11/ | Appointment | Radiology | Shawn Michael | | | 2019 | | | MD [address] | | | | | | [address] [place] | | | | | | [place] [address] | | | | | | [phone] | | | | | | | | +--------+ + + + + | 04/13/ | Office | Cardiology | Shawn Michael | | | 2019 | Visit | | MD [address] | | | | | | [address] [place] | | | | | | [place] [address] | | | | | | [phone] | | | | | | | [...]
--- OUTSIDE RECORDS SUMMARY | ~2020-03-14 | XMS | Encounter Summary ---
Demographics + + + | Address | [address] | | | [place] [address] | + + + | Home Phone [...] Team Providers + +------+ + | Care Elementary Special Education Teacher Name | Role | Phone | + +------+ + | Candido Link | PCP | | | MD | | | + +------+ + Reason for Visit + + + | Reason | Comments | + + + | Discharge Without | | | Visit | | + + + Encounter Details +--------+ + + + + | Date | Type | Department | Care Team | Description | +--------+ + + + + | 12/12/ | Documentati | [facility] | Ivett Roger, | Discharge Without | | 2020 | on | [facility] | OT [address] | Visit | | | | [address] | [place] | | | | | [place] | [address] | | | | | [address] | | | | | | [phone] | | | +--------+ + + + [...] documented as of this encounter Progress Notes Ivett Roger OT - 12/13/2019 3:55 PM PDTFormatting of this note might be different fr om the original. [facility] [address] [address] Occupational Therapy Discharge Note This discharge is associated with the evaluation completed on 08/03/2019. Date: 12/13/2019 Patient Information Patient Name: Ángela Crowley Date of : 1930 Age: 89 y.o. Encounter Diagnoses Code Name Primary? 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 At this time we find it necessary to discharge this patient from therapy services. The patients initial evaluation will serve as objective status for purposes of discharge. Electronically signed by: Ivett Roger OT, 12/13/2019 3:55 PM Patient Name: Ángela Crowley/: 1930/ documented in this e ncounter Plan of Treatment +--------+ + + + + | Date | Type | Specialty | Care Team | Description | +--------+ + + + + | 03/23/ | Office | Anticoagulation | García Harris, | | 2019 | Visit | | [facility] [address] | | | | | | [place] | | | | | | [id number] | | | | | | | | +--------+ + + + + | 04/11/ | Appointment | Radiology | Shawn Michael | | | 2019 | | | MD [address] | | | | | | [address] [place] | | | | | | [place] [address] | | | | | | [phone] | | | | | | | | +--------+ + + + + | 04/13/ | Office | Cardiology | Shawn Michael | | | 2019 | Visit | | MD [address] | | | | | | [address] [place] | | | | | | [place], [place] [address] | | | | | | [phone] | | | | | | | [...]
--- OUTSIDE RECORDS SUMMARY | ~2020-03-14 | XMS | Encounter Summary ---
Demographics + + + | Address | [address] | | | [place] [address] | + + + | Home Phone [...] Team Providers + +------+ + | Care Cfd Engineer Name | Role | Phone | [...] + + | 12/12/ | Documentati | [facility] | Ivett Roger, | Discharge Without | | 2020 | on | [facility] | OT [address] | Visit | | | | [address] | [place] | | | | | [place] | [address] | | | | | [address] | | | | | | [phone] | | | +--------+ + + + [...] be different fr om the original. [facility] [address] [place] [address] Occupational Therapy Discharge Note This discharge is [...] | 2019 | Visit | | PRAB[facility] [address] | | | | | | [place] | | | | | | [address] | | | | | | | | +--------+ + + + + | 04/11/ | Appointment | Radiology | Shawn Michael | | | 2019 | | | MD [address] | | | | | | [address] [place] | | | | | | [place] [address] | | | | | | [phone] | | | | | | | | +--------+ + + + + | 04/13/ | Office | Cardiology | Shawn Michael | | | 2019 | Visit | | MD [address] | | | | | | [address] [place] | | | | | | [place], [place] [address] | | | | | | [phone] | | | | | | | [...]
--- OUTSIDE RECORDS SUMMARY | ~2020-03-14 | XMS | Encounter Summary ---
Demographics + + + | Address | [address] | | | [place] [address] | + + + | Home Phone [...] Providers + +------+ + | Care Tool Design Checker Name | Role | Phone | + [...] + + | 10/12/ | Telephone | [facility] | Nikolay, | Medication Refill | | 2019 | | MEDICINE [address] | MD Candido | | | | | [facility] | [address] [place] [address] | | | | | [place] [address] | [place] [address] | | | | | [phone] | [phone] | | | | | | | [...] | | 2019 | Visit | | ELECTRIC SHIPYARD OPERATOR [address] | | | | | | [place] | | | | | | [address] | | | | | | | | +--------+ + + + + | 04/11/ | Appointment | Radiology | Shawn Michael | | | 2019 | | | MD [address] | | | | | | [address] [place] | | | | | | [place] [address] | | | | | | [phone] | | | | | | | | +--------+ + + + + | 04/13/ | Office | Cardiology | Shawn Michael | | | 2019 | Visit | | MD [address] | | | | | | [address] [place] | | | | | | [place] [address] | | | | | | [phone] | | | | | | | | +--------+ + + + + documented as of this encounter Visit Diagnoses + + | Diagnosis | + + | Generalized osteoarthritis Generalized osteoarthrosis, unspecified site | + + | long term care social worker prescription opiate use | + + documented in this encounter Additional Health Concerns + + + + | Infection | Noted Time | Resolved Time | + + + + | Methicillin-resistant Staphylococcus aureus | 06/08/2019 9:39 AM | | | | PDT | | + + + + documented as of this encounter"
--- OUTSIDE RECORDS SUMMARY | ~2020-03-14 | XMS | Encounter Summary ---
Demographics + + + | Address | [address] | | | [place] [address] | + + + | Home Phone [...] | | + + +---------+ + | Laylajaenlle Argueta | ECON | Unknown | | + + +---------+ + Care Team Providers + +------+ + | Care Fruit Grower Name | Role | Phone | + [...] | patient leaving | | | | [address] | | prior to being seen | | | | [phone] | | by health care | | [...] [place] | | | | | | [address] | | | | | | | | +--------+ + + + + | 04/11/ | Appointment | Radiology | Shawn Michael | | | 2019 | | | MD Marcelino [address] | | | | | | [address] | | | | | | [place] [address] | | | | | | [phone] | | | | | | | | +--------+ + + + + | 04/13/ | Office | Cardiology | Shawn Michael | | 2019 | Visit | | MD Marcelino [address] | | | | | | [address] | | | | | | [place] [address] | | | | | | [phone] | | | | | | | [...]
--- OUTSIDE RECORDS SUMMARY | ~2020-03-14 | XMS | Encounter Summary ---
Demographics + + + | Address | [address] | | | [place] [address] | + + + | Home Phone [...] Team Providers + +------+ + | Care Bite Block Maker Name | Role | Phone | + +------+ + | Candido Link | PCP | | | MD | | | + +------+ + Reason for Visit + + + | Reason | Comments | + + + | Lab Results | | + + + Encounter Details +--------+ + + + + | Date | Type | Department | Care Team | Description | +--------+ + + + + | 06/16/ | Telephone | [facility] | Nikolay, | Lab Results | | 2019 | | MEDICINE [address] [place] [address] | MD Candido | | | | | [facility] | [address] [place] [address] | | | | | [place] [address] | [place] [address] | | | | | [phone] | | | | | | | [...] | | 2019 | Visit | | DATA INTEGRATION DEVELOPER [address] | | | | | | [place] | | | | | | [address] | | | | | | | | +--------+ + + + + | 04/11/ | Appointment | Radiology | Shawn Michael | | 2019 | | | MD [address] | | | | | | [address] [place] | | | | | | [place] [address] | | | | | | [phone] | | | | | | | | +--------+ + + + + | 04/13/ | Office | Cardiology | Shawn Michael | | 2019 | Visit | | MD [address] | | | | | | [address] [place] | | | | | | [place] [address] | | | | | | [phone] | | | | | | | [...]
--- OUTSIDE RECORDS SUMMARY | ~2020-03-14 | XMS | Encounter Summary ---
Demographics + + + | Address | [address] | | | [place] [address] | + + + | Home Phone [...] Providers + +------+ + | Care Ship Superintendent Name | Role | Phone | [...] + + | 06/22/ | Telephone | [facility] | Nikolay, | Paperwork | | 2019 | | MEDICINE [address] [place] [address] | MD Candido | | | | | [facility] | [address] [place] [address] | | | | | [place] [address] | [place] [address] | | | | | [phone] | | | | | | | [...] | | 2019 | Visit | | SHEET FINISHER [address] | | | | | | [place] | | | | | | [address] | | | | | | | | +--------+ + + + + | 04/11/ | Appointment | Radiology | Shawn Michael | | 2019 | | | MD [address] | | | | | | [address] [place] | | | | | | [place] [address] | | | | | | [phone] | | | | | | | | +--------+ + + + + | 04/13/ | Office | Cardiology | Shawn Michale | | 2019 | Visit | | MD [address] | | | | | | [address] [place] | | | | | | [place] [address] | | | | | | [phone] | | | | | | | [...]
--- OUTSIDE RECORDS SUMMARY | ~2020-03-14 | XMS | Encounter Summary ---
Demographics + + + | Address | [address] | | | [place] [address] | + + + | Home Phone [...] Team Providers + +------+ + | Care Toe Lining Closer Name | Role | Phone | + [...] Visit | [place] [address] | CODING SUPPORT SPECIALIST [address] | | | | | [place] | [place] | | | | | [address] | [address] | | | | | [phone] | | | +--------+ + + + [...] | | 2019 | Visit | | SR. DIRECTOR PRODUCT MANAGEMENT [address] | | | | | | [place] | | | | | | [address] | | | | | | | | +--------+ + + + + | 04/11/ | Appointment | Radiology | Shawn Michael | | | 2019 | | | MD [address] | | | | | | [address] [place] | | | | | | [place] [address] | | | | | | [phone] | | | | | | | | +--------+ + + + + | 04/13/ | Office | Cardiology | Shawn Michael | | | 2019 | Visit | | MD [address] | | | | | | [address] [place] | | | | | | [place] [address] | | | | | | [phone] | | | | | | | [...] | | | | | and hips. CODING SUPPORT SPECIALIST notes | | | | | | [...] | Problem: HH PT | | | CODING SUPPORT SPECIALIST performed | | exercise | IMPAIRED | Comple | | progressive resistance | | Description: | STRENGTHGoal: HH PT | yoel | | exercises in stance: | | Evaluate and | STRENGTH | | | ankle PF/DF, HS curls | | instruct the patient | | | | and hip ad/abd/flexion. | | and/or caregiver | | | | CODING SUPPORT SPECIALIST adjusted difficulty | | and provide home [...] | Problem: HH PT | | | CODING SUPPORT SPECIALIST instructed pt on | | training | [...] in | Problem: SHARED | | | CODING SUPPORT SPECIALIST educated pt on non | | Exercise/Mobility [...]
--- OUTSIDE RECORDS SUMMARY | ~2020-03-14 | XMS | Encounter Summary ---
Demographics + + + | Address | [address] | | | [place] [address] | + + + | Home Phone [...] | + + +---------+ + | Yadiel Argutea | ECON | Unknown | | + + +---------+ + | Pee Perrin | ECON | Unknown | | + + +---------+ + | Layla Argueta | ECON | Unknown | | + + +---------+ + Care Team Providers + +------+ + | Care Computer Networking Instructor Name | Role | Phone | [...] [place] | | | | | | [address] | | | | | | [phone] | | | +--------+ + + + [...] | | | | | [place] [address] | | | | | | [phone] | | | | | | | | +--------+ + + + + | 04/13/ | Office | Cardiology | Shawn Michael | | | 2019 | Visit | | MD Marcelino [address] | | | | | | [address] | | | | | | [place] [address] | | | | | | [phone] | | | | | | | [...]
--- OUTSIDE RECORDS SUMMARY | ~2020-03-14 | XMS | Encounter Summary ---
Demographics + + + | Address | [address] | | | [place] [address] | + + + | Home Phone [...] Providers + +------+ + | Care Hand Marker Name | Role | Phone | + [...] [place] | | | | | | [address] | | | | | | [phone] | | | +--------+ + + + [...] [place] | | | | | | [address] | | | | | | | | +--------+ + + + + | 04/11/ | Appointment | Radiology | Shawn Michael | | | 2019 | | | MD Marcelino [address] | | | | | | [address] | | | | | | [place] [address] | | | | | | [phone] | | | | | | | | +--------+ + + + + | 04/13/ | Office | Cardiology | Zacharynnamdi Shawn | | | 2019 | Visit | | MD Marcelino [address] | | | | | | [address] [place] | | | | | | [place] [address] | | | | | | [phone] | | | | | | | [...] - [facility] | + + + + +--------+--------+-------+ + | Problem | Description | Start | Status | Goals | Interventio | | | | Date | | | ns | + + +--------+--------+-------+ + | HH SHARED FALLS | | | | - | 1 problem | | Disciplines: | | 06/13/20 | Active | | | | [facility], | | 19 | | | interventio [...] 06/13/20 | Active | | | | [facility] | | 19 | | | interventio [...] 19 | | | interventio | | [facility] | | | | | n | [...] | | | | n | | [facility] | | | | | scheduled/d | | | | | | | ocumented | | | | | | | in this | | | | | | | visit | + + +--------+--------+-------+ + | Respiratory Status | COPD & CHF | | | - | 3 problem | | Disciplines: | | 06/13/20 | Active | | | | [facility] | | 19 | | | interventio [...]
--- OUTSIDE RECORDS SUMMARY | ~2020-03-14 | XMS | Encounter Summary ---
Demographics + + + | Address | [address] | | | [place] [address] | + + + | Home Phone [...] Team Providers + +------+ + | Care County Surveyor Name | Role | Phone | + [...] [place] | | | | | | [address] | | | | | | [phone] | | | +--------+ + + + [...] [place] | | | | | | [address] | | | | | | | | +--------+ + + + + | 04/11/ | Appointment | Radiology | Shawn Michael | | | 2019 | | | MD Marcelino [address] | | | | | | [address] | | | | | | [place] [address] | | | | | | [phone] | | | | | | | | +--------+ + + + + | 04/13/ | Office | Cardiology | Shawn Michael | | | 2020 | Visit | | MD Marcelino [address] | | | | | | [address] | | | | | | [place] [address] | | | | | | [phone] | | | | | | | [...]
--- OUTSIDE RECORDS SUMMARY | ~2020-03-14 | XMS | Encounter Summary ---
Demographics + + + | Address | [address] | | | [place] [address] | + + + | Home Phone [...] Team Providers + +------+ + | Care Label Stitcher Name | Role | Phone | + [...] Visit | [place] [address] | [facility] [facility] [address] | | | | | [place] | [place] | | | | | [address] | [address] | | | | | [phone] | | | +--------+ + + + [...] [place] | | | | | | [address] | | | | | | | | +--------+ + + + + | 04/11/ | Appointment | Radiology | Shawn Michael | | | 2019 | | | MD Marcelino [address] | | | | | | [address] | | | | | | [place] [address] | | | | | | [phone] | | | | | | | | +--------+ + + + + | 04/13/ | Office | Cardiology | Shawn Michael | | | 2019 | Visit | | MD Marcelino [address] | | | | | | [address] [place] | | | | | | [place] [address] | | | | | | [phone] | | | | | | | [...]
--- OUTSIDE RECORDS SUMMARY | ~2020-03-14 | XMS | Encounter Summary ---
Demographics + + + | Address | [address] | | | [place] [address] | + + + | Home Phone [...] | Author | [facility] | | | [...] Team Providers + +------+ + | Care Supersonic Engineer Name | Role | Phone | [...] Visit | [place] [address] | HAMMER SETTER [address] | | | | | [place] | [place] | | | | | [address] | [address] | | | | | [phone] | | | +--------+ + + + [...] [place] | | | | | | [id number] | | | | | | | | +--------+ + + + + | 04/11/ | Appointment | Radiology | Shawn Michael | | | 2019 | | | MD Marcelino [address] | | | | | | [address] | | | | | | [place] [address] | | | | | | [phone] | | | | | | | | +--------+ + + + + | 04/13/ | Office | Cardiology | Shawn Michael | | | 2019 | Visit | | MD Marcelino [address] | | | | | | [address] [place] | | | | | | [place] [address] | | | | | | [phone] | | | | | | | [...] | | | | | and hips. HAMMER SETTER notes | | | | | | [...] | Problem: HH PT | | | HAMMER SETTER instructed pt on | | training | [...]
--- OUTSIDE RECORDS SUMMARY | ~2020-03-14 | XMS | Encounter Summary ---
Demographics + + + | Address | [address] | | | [place] [address] | + + + | Home Phone [...] Team Providers + +------+ + | Care Contracting Manager Name | Role | Phone | [...] [place] | | | | | | [address] | | | | | | [phone] | | | +--------+ + + + [...] | | | | | [place] [address] | | | | | | [phone] | | | | | | | | +--------+ + + + + | 04/13/ | Office | Cardiology | Shawn Michael | | | 2019 | Visit | | MD Marcelino [address] | | | | | | [address] | | | | | | [place] [address] | | | | | | [phone] | | | | | | | [...]
--- OUTSIDE RECORDS SUMMARY | ~2020-03-14 | XMS | Encounter Summary ---
Demographics + + + | Address | [address] | | | [place] [address] | + + + | Home Phone [...] Team Providers + +------+ + | Care Recreation Manager Name | Role | Phone | [...] [place] | | | | | | [address] | | | | | | [phone] | | | +--------+ + + + [...] | | | | | [place] [address] | | | | | | [phone] | | | | | | | | +--------+ + + + + | 04/13/ | Office | Cardiology | Shawn Michael | | 2019 | Visit | | MD Marcelino [address] | | | | | | [address] | | | | | | [place] [address] | | | | | | [phone] | | | | | | | [...]
--- OUTSIDE RECORDS SUMMARY | ~2020-03-14 | XMS | Encounter Summary ---
Demographics + + + | Address | [address] | | | [place] [address] | + + + | Home Phone [...] Team Providers + +------+ + | Care Ward Maid Name | Role | Phone | + [...] Required | | Diverticulit | [address] | | | | | | is Chronic | [place] | | | | | | obstructive | [place], [place] | | | | | | pulmonary | [address] | | | | | | disease, | Phone: | | | | | | unspecified | [phone] | | | | | | COPD type | Fax: | | | | | | ([facility]) | [phone] | | +--------+ + + + + [...] + + | 09/01/ | Hospital | [facility] | Sammy Milan | Sepsis, due to | | 2019 - | Encounter | [facility] | DO Francesco [address] | unspecified | | | | [address] [place] | [address] [place] | organism, | | 09/08/ | | [place] [address] | [place] [address] | unspecified whether | | 2019 | | [phone] | [phone] | acute organ | | | | | | dysfunction present | | | | | Anna Hastings MD | ([facility]) (Primary Dx); | | | | | [address] | Diverticulitis; | | | | | [place] | Elevated troponin; | | | | | [id number] | Abnormal CT scan, | | | | | | gastrointestinal | | | | | Wayne Munoz, | tract; 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 Name/Age/: Ángela Laureano 89 [...] on 3 L nasal cannula chronically at [facility], secondary to COPD 4. 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 History of complicated TAVR [...] check in at 9:45. Contact information: [address] [place] [phone] RESULTS: ENHANCED CT ABDOMEN AND PELVIS [...] enlargement or hernia is evident. There are hrik-la-cavivvrs degenerative changes of the hips and pubic [...] reported to the ER staff by the [facility] Imaging radiologist on September 02, 2019 [...] Keyur Carvajal MD, 09/08/2019 1:[address] [facility] Portions of this chart may have been created with YOOSE voice recognition software. Occasi onal wrong-word or [...] MD - 09/07/2019 4:[address] [facility] PMG Hospitalist Progress Note Ángela Laureano is [...] above. Keyur Carvajal MD 09/07/2019 4:36 PM [facility] Portions of this chart may have been created with YOOSE voice recognition software. Occasi onal wrong-word or [...] might be different from the origin al. [facility] HOSPITALIST PROGRESS NOTE Pt. Name/Age/: Ángela Laureano 89 y.o. 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 Pt reportedly having dark stools for a few days MANAGER MAIL altho on supplemental oral iron. The patient was discharged from [facility] about a week prior to this admission [...] discharge which she took until 3 days MANAGER MAIL. After completing her abx, she subsequently developed recurrent abdominal pain, prompting a return to [facility] presumably with a flare in her diverticulitis. [...] Sig; Surgeon: Edwin Stoddard MD; Location: [facility] HYSTERECTOMY NIRMAL AND BSO TONSILLECTOMY AND ADENOIDECTOMY UPPER GASTROINTESTINAL ENDOSCOPY N/A 06/07/2019 Procedure: EGD; Surgeon: Edwin Stoddard MD; Location: [facility] PROC[facility]URE [facility] UPPER GASTROINTESTINAL ENDOSCOPY N/A 08/20/2019 Procedure: EGD; Surgeon: John Grimes MD; Location: [facility] PROC[facility]URE [facility] Allergies: Allergies Allergen Reactions [...] for at least a year at [facility]. Given an apparent indolent course would at this point favor f/u with physicians from [facility] who are more familiar with pt's [...] by: Wayne Munoz MD, 09/06/2019 12:17 PM [facility] Lab data: Recent Results (from the [...] Dahl MD - 09/05/2019 10:54 AM PST [facility] HOSPITALIST PROGRESS NOTE Pt. Name/Age/: Ángela Laureano 89 y.o. 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 Pt reportedly having dark stools for a few days MANAGER MAIL altho she is on supplemental oral iron. The patient was discharged from [facility] about a week prior to this admission after treatment for diverticulitis and melena. She h ad initially been on zosyn and was transitioned to Augmentin upon discharge which she took u ntil 3 days MANAGER MAIL. During her hospital stay, she underwent EGD which did not reveal any sourc e for her melena. 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 Subsequent to her recurrent abdominal pain, she returned to [facility] presumably with a flare i n her [...] transport pending discussions with pt's physicians at [facility]. Imaging/records from that facility is being reques yoel. Review of reports from [facility], [place], [place], indicate that the pt has had [...] Sig; Surgeon: Edwin Stoddard MD; Location: [facility] HYSTERECTOMY NIRMAL AND BSO TONSILLECTOMY AND ADENOIDECTOMY UPPER GASTROINTESTINAL ENDOSCOPY N/A 06/07/2019 Procedure: EGD; Surgeon: Edwin Stoddard MD; Location: [facility] PROC[facility] UPPER GASTROINTESTINAL ENDOSCOPY N/A 08/20/2019 Procedure: EGD; Surgeon: John Grimes MD; Location: [facility] Allergies: Allergies Allergen Reactions [...] solution 2 drop 2 drop [facility] ara Hastings MD 2 drop at [...] relapse of diverticulitis. Favor at [facility] 10day abx, stop date 09/11. In [...] followed by frequent imaging studies at [facility]. Given an apparent indolent co urse of the ill-defined pancreatic mass, would at this point favor f/u with physicians from [facility] who are more familiar with pt's [...] by: Wayne Munoz MD, 09/05/2019 10:54 AM [facility] Lab data: Recent Results (from the [...] tillerWayne MD - 09/04/2019 10:45 AM PST [facility] HOSPITALIST PROGRESS NOTE Pt. Name/Age/: Ángela Laureano 89 y.o. 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 Pt reportedly having dark stools the last couple days altho she is on supplemental oral iron. The patient was discharged from [facility] about a week prior to this admission after treatment for diverticulitis and melena. She had initially been on zosyn and was transitioned to Augmentin upon discharge which she took until 3 days MANAGER MAIL. During her hospital stay, she underwent EGD which did not reveal any henri rce for her melena. 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 Subsequent to her recurrent abdominal pain, she returned to [facility] presumably with a flare i n her [...] transport pending discussions wi pt's physicians at [facility]. Imaging/records from that facility is being requ ested. Review of reports from [facility], [place], [place], indicate that the pt has h [...] Sig; Surgeon: Edwin Stoddard MD; Location: [facility] HYSTERECTOMY NIRMAL AND BSO TONSILLECTOMY AND ADENOIDECTOMY UPPER GASTROINTESTINAL ENDOSCOPY N/A 06/07/2019 Procedure: EGD; Surgeon: Edwin Stoddard MD; Location: [facility] MED[facility] PROC[facility]URE [facility] UPPER GASTROINTESTINAL ENDOSCOPY N/A 08/20/2019 Procedure: EGD; Surgeon: John Grimes MD; Location: [facility] Allergies: Allergies Allergen Reactions [...] Oral Daily Jazz Packer 1,000 mg at 09/04/19 0850 calcium carbonate (TUMS) chewable tablet 1,000 mg 1,000 mg Oral Q4H PRN Anna Hastings MD carvedilol (COREG) tablet 6.25 mg 6.25 mg Oral BID Wayne Munoz MD dicyclomine [...] this point favor f/u with physicians from [facility] in [place], [place] who are more familiar with pt's [...] by: Wayne Munoz MD, 09/04/2019 10:45 AM [facility] Lab data: Recent Results (from the [...] LVOT Mean Velocity 66.84 cm/s AV Deceleration [place] 317.3 cm/s2 AV Mean Velocity 187.76 cm/s [...] Green Top Tube Done olph, Raymon Obrien, [facility] - 09/03/2019 4:27 PM PST PHARMACY SERVICES: [...] Corie- Isabelle X State Prescription Monitoring Program ([place]) X [employer] insurance reported information X Other sources: Verbal interview with son, Yadiel, who manages medications Vaccines up to date? Influenza No Pneumococcal Yes Tdap Yes Shingles Unsure Noted medications discrepancies or medication-related issues: Dosage/Form/Frequency change: MANAGER MAIL Medication: Prior to Admission Sig: Correct Sig: [...] Prior to Admission Sig: Patient taking differently MANAGER MAIL as: Budesonide 0.5 mg/2 mL neb marcelino 2 mL by nebulization twice daily 2 mL by nebulization four t imes daily Son states he has been mixing this with patient's albuterol solution (the only other solu tion she's filled is Duoneb) and giving 4 times daily as ordered by her Property Field Adjuster. No do cumentation found to support this statement. Dicyclomine 10 mg cap 1 cap by mouth daily as needed for GI upset 1 cap by mouth five time s in one day MANAGER MAIL. Patient suffering from severe GI upset Estradiol [...] taking Not taken since last hospital admission. [facility] hospitalist told him he wanted patien t [...] by 10 mg ever y 5 days [facility] patient started 40 mg daily ~1 week ago. On day of admission patient was on ird day of 30 mg daily Best possible MANAGER MAIL medication list after pharmacy review: PT REPORTED [...] Take 5 mg by mouth Daily. Taking [facility] brimonidine (ALPHAGAN) 0.2% ophthalmic [...] daily (with breakfast & di nner). Taking [facility] cetirizine (ZYRTEC) 10 mg tablet Take [...] by mouth [address] [facility] nitroglycerin (NITROSTAT) 0.4 [...] performed and electronically signed by Ly Guido, X Ray Technologist 3:49 PM Electronically signed by: Raymon Patel [facility] 09/03/2019 4:27 PM Wayne Edmonds MD - 09/03/2019 2:47 PM PST [facility] HOSPITALIST PROGRESS NOTE Pt. Name/Age/: Ángela Laureano [...] abx course apparently ended on 3 days MANAGER MAIL. During her hospital stay, she underwent EGD which did not reveal any source for her melena. 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 She returned to [facility] presumably with a flare in her diverticular [...] Stoddard from GI who recommended transfer to [facility] for EUS. The pt's son, claiming POA despite the pt's competence (she is hard of hearing but does not seem to lack capacity at th is time), wished to delay transport pending discussions with pt's physicians at [facility]. Imaging from that facility is being [...] Sig; Surgeon: Edwin Stoddard MD; Location: [facility] HYSTERECTOMY NIRMAL AND BSO TONSILLECTOMY AND ADENOIDECTOMY UPPER GASTROINTESTINAL ENDOSCOPY N/A 06/07/2019 Procedure: EGD; Surgeon: Edwin Stoddard MD; Location: [facility] PROC[facility]URE [facility] UPPER GASTROINTESTINAL ENDOSCOPY N/A 08/20/2019 Procedure: EGD; Surgeon: John Grimes MD; Location: [facility] PROC[facility]URE [facility] Allergies: Allergies Allergen Reactions [...] Anna barber MD 1 tablet at 09/03/19 0942 albuterol 2.5 mg/3 mL nebulizer solution 2.5 [...] 1,000 mg 1,000 mg Oral Daily Jazz Pcaker D 1,000 mg at 09/03/19 0923 calcium [...] wishes discussi on with pt's physicians from [facility] in [place], [place] prior to transfer. 2. Chronic blood [...] by: Wayne Munoz MD, 09/03/2019 2:47 PM [facility] Lab data: Recent Results (from the [...] LVOT Mean Velocity 66.84 cm/s AV Deceleration [place] 317.3 cm/s2 AV Mean Velocity 187.76 cm/s [...] | | 2019 | Visit | | ATHLETIC INSTRUCTOR [address] | | | | | | [place] | | | | | | [id number] | | | | | | | | +--------+ + + + + | 04/11/ | Appointment | Radiology | Shawn Michael | | 2019 | | | MD Marcelino [address] | | | | | | [address] | | | | | | [place] [id number] | | | | | | [phone] | | | | | | | | +--------+ + + + + | 04/13/ | Office | Cardiology | Shawn Michael | | | 2020 | Visit | | MD Marcelino [address] | | | | | | [address] [place] | | | | | | [place] [address] | | | | | | [phone] | | | | | | | [...] | 9 - 23 mg/dL | [facility] | | | | | | [facility] | | | | | | MEDICAL | | | | | | CENTER - | | | | | | LABORATORY | | + + + + + + | Creatinine | 0.63 | 0.55 - 1.02 | [facility] | | | | | mg/dL [...] mL/min/1.73m2 | [facility] | | | [place] | RATE,ESTIMATED | | MEDICAL | | | | mL/min/1.57x4Yipx than | | CENTER - | | [...] [address] | [place] | [phone] | | [facility] | | [address] | | | - LABORATORY | | [...] [address] | [place] | [phone] | | [facility] | | [address] | | | - LABORATORY | | [...] | [facility] | [address] | [place] | [phone] | | [facility] | | [address] | | | - LABORATORY | | | | + + + + + Troponin I (09/07/2019 2:13 PM PST) + + + + + + | Component | Value | Ref Range | Performed | Pathologist | | | | | At | Signature | + + + + + + | Troponin I | 0.04Comment: | <0.06 ng/mL | [place] | | | | Comment:Reference | | [...] | | | | | | [employer] | | | | | [...] + + | Performing | Address | City/State/[facility] | Phone Number | | Organization | | | | + + + + + | [address] | [address] | [place] | [phone] | | [facility] | | [address] | | | - LABORATORY | | [...] [address] | [place] | [phone] | | [facility] | | [address] | | | - LABORATORY | | [...] [address] | [place] | [phone] | | [facility] | | [address] | | | - LABORATORY | | [...] [address] | [place] | [phone] | | [facility] | | [address] | | | - LABORATORY | | [...] [address] | [place] | [phone] | | [facility] | | [address] | | | - LABORATORY | | [...] | [facility] | [address] | [place] | [phone] | | [facility] | | [address] | | | - LABORATORY | | [...] | [facility] [facility] | [address] | [place] | [phone] | | [facility] | | [address] | | | - LABORATORY | | [...] [address] | [place] | [phone] | | [facility] | | [address] | | | - LABORATORY | | [...] | [facility] | [address] | [place] | [phone] | | [facility] | | [address] | | | - LABORATORY | | [...] [address] | [place] | [phone] | | [facility] | | [address] | | | - LABORATORY | | [...] [address] | [place] | [phone] | | [facility] | | [address] | | | - LABORATORY | | [...] [facility] | | | | | | [facility] | | | | | | MEDICAL | | | | | | CENTER - | | | | | | LABORATORY | | + + + + + + | RBC | 3.23 (L) | 3.70 - 5.20 | [facility] | | | | | M/uL | [facility] | | | | | | MEDICAL [...] | [facility] | [address] | [place] | [phone] | | [facility] | | [address] | | | - LABORATORY | | [...] | | Total | | | [facility] | | | | | | MEDICAL [...] [address] | [place] | [phone] | | [facility] | | [address] | | | - LABORATORY | | [...] [address] | [place] | [phone] | | [facility] | | [address] | | | - LABORATORY | | [...] mL/min/1.73m2 | [facility] | | | [facility] | RATE,ESTIMATED | | MEDICAL | | | | mL/min/1.62p0Zeci than | | CENTER - | | [...] | [facility] | [address] | [place] | [phone] | | [facility] | | [address] | | | - LABORATORY | | [...] [address] | [place] | [phone] | | [facility] | | [address] | | | - LABORATORY | | [...] [address] | [place] | [phone] | | [facility] | | [address] | | | - LABORATORY | | [...] [address] | [place] | [phone] | | [facility] | | [address] | | | - LABORATORY | | [...] [address] | [place] | [phone] | | [facility] | | [address] | | | - LABORATORY | | [...] [address] | [place] | [phone] | | [facility] | | [address] | | | - LABORATORY | | [...] [address] | [place] | [phone] | | [facility] | | [address] | | | - LABORATORY | | [...] [address] | [place] | [phone] | | [facility] | | [address] | | | - LABORATORY | | [...] ST. | [address] | [place], [place] | [phone] | | [facility] | | [address] | | | - LABORATORY | | [...] | | | PROTOCOL: Coronal T2 manager multimedia, axial T2 manager multimedia, coronal 3D respiratory | | | triggered, [...] ?etiology.COMPARISON: 09/01/2019PROTOCOL: | | Coronal T2 manager multimedia, axial T2 manager multimedia, coronal 3D respiratory triggered,coronal T2 thin | [...] | | | | | | n [place] | | | | | + +---------+ [...] [address] | [place] | [phone] | | [facility] | | [address] | | | - LABORATORY | | [...] | [facility] | [address] | [place] | [phone] | | [facility] | | [address] | | | - LABORATORY | | [...] [address] | [place] | [phone] | | [facility] | | [address] | | | - LABORATORY | | [...] [address] | [place] | [phone] | | [facility] | | [address] | | | - LABORATORY | | [...] | [facility] | [address] | [place] | [phone] | | [facility] | | [address] | | | - LABORATORY | | | | + + + + + Troponin I (09/02/2019 12:30 PM PST) + + + + + + | Component | Value | Ref Range | Performed | Pathologist | | | | | At | Signature | + + + + + + | Troponin I | 0.33 (H)Comment: | <0.06 ng/mL | [place] | | | | Comment:Reference | | [...] | | | | | | [employer] | | | | | [...] | [facility] [facility] | [address] | [place] | [phone] | | [facility] | | [address] | | | - LABORATORY | | [...] | | | | | | [employer] | | | | | [...] [address] | [place] | [phone] | | [facility] | | [address] | | | - LABORATORY | | [...] [address] | [place] | [phone] | | [facility] | | [address] | | | - LABORATORY | | [...] mL/min/1.73m2 | [facility] | | | [place] | | | MEDICAL | | | [...] [address] | [place] | [phone] | | [facility] | | [address] | | | - LABORATORY | | [...] | [facility] | [address] | [place] | [phone] | | [facility] | | [address] | | | - LABORATORY | | [...] | [facility] | [address] | [place] | [phone] | | [facility] | | [address] | | | - LABORATORY | | [...] [address] | [place] | [phone] | | [facility] | | [address] | | | - LABORATORY | | [...] | | | | LEONIDAS CALVO MD ([id number]) | | | | | | on [...] 1.030 | [facility] | | | [place], | | | [facility] | | [...] | [address] | [place] | [phone] | | [facility] | | [address] | | | - LABORATORY | | [...] | | | | LEONIDAS CALVO MD ([id number]) | | | | | | on [...] | or hernia is evident. There are xvcq-jr-tmrxufse degenerative | | | changes of the [...] node enlargement or hernia isevident. There are ajpg-ox-iloioprh | | degenerative changes of the hips [...] [address] | [place] | [phone] | | [facility] | | [address] | | | - LABORATORY | | [...] | [facility] | [address] | [place] | | | [facility] | | [address] | | | - BLOOD BANK | [...] ST. | [address] | [place] | [phone] | | [facility] | | [address] | | | - LABORATORY | | [...] [address] | [place] | [phone] | | [facility] | | [address] | | | - LABORATORY | | [...] | [facility] | [address] | [place] | [phone] | | [facility] | | [address] | | | - LABORATORY | | [...] | | | | | | [employer] | | | | | [...] | [facility] | [address] | [place] | [phone] | | [facility] | | [address] | | | - LABORATORY | | [...] as of December 02, | | [facility] | | | | 2019. Check reference [...] [address] | [place] | [phone] | | [facility] | | [address] | | | - LABORATORY | | [...] mL/min/1.73m2 | [facility] | | | [place] | | | MEDICAL | | | [...] | [address] | [place], [place] | [phone] | | [facility] | | [address] | | | - LABORATORY | | [...] [address] | [place] | [phone] | | [facility] | | [address] | | | - LABORATORY | | [...] | | | | | Breath, Starting [facility] 09/02/19 at | | | | | [...] | | | DAILY, First dose on [facility] 09/02/19 | | | | | | [...] | | | | First dose on [facility] 09/02/19 at | | | | | [...] | | | | First dose on [facility] 09/02/19 at | | | | | [...] | | | | First dose on [facility] 09/02/19 at | | | | | [...] | | | | | Upset, Starting [facility] 09/02/19 at | | AM PST | [...] PST | | | | | on [facility] 09/02/19 at 0900 | | | | [...] | | | | First dose on [facility] 09/02/19 at | | | | | [...] | | | | | dose on [facility] 09/02/19 at 2100 | | | | [...] 8:54 | | | | | Starting [facility] 09/02/19 at 0221 | | PM PST [...] | | | | | Pain, Starting [facility] 09/01/19 at | | AM PST | [...] | | | | First dose on [facility] 09/02/19 at | | AM PST | [...] | | | | | Hours, ONCE, [facility] 09/02/19 at | | | | | [...] | | | | First dose on [facility] 09/02/19 at | | | | | [...] | | | | First dose on [facility] 09/02/19 at | | | | | [...] | | | | | dose on [facility] 09/02/19 at 0900 | | AM PST [...]
--- OUTSIDE RECORDS SUMMARY | ~2020-03-14 | XMS | Encounter Summary ---
Demographics + + + | Address | [address] | | | [place] [address] | + + + | Home Phone [...] Team Providers + +------+ + | Care Telephone Operators Supervisor Name | Role | Phone | [...] + + | 06/16/ | Telephone | [facility] | Nikolay, | Lab Results | | 2019 | | MEDICINE [address] [place] [address] | MD Candido | | | | | [facility] | [address] [place] [address] | | | | | [place] [address] | [place] [address] | | | | | [phone] | [phone] | | | | | | | [...] | 2019 | Visit | | ASSISTANT PROFESSOR OF DIETETICS [address] | | | | | | [place] | | | | | | [address] | | | | | | | | +--------+ + + + + | 04/11/ | Appointment | Radiology | Shawn Michael | | 2019 | | | MD [address]yn[address] | | | | | | [address] [place] | | | | | | [place] [address] | | | | | | [phone] | | | | | | | | +--------+ + + + + | 04/13/ | Office | Cardiology | Shawn Michael | | 2019 | Visit | | MD [address] | | | | | | [address] [place] | | | | | | [place] [address] | | | | | | [phone] | | | | | | | [...]
--- OUTSIDE RECORDS SUMMARY | ~2020-03-14 | XMS | Encounter Summary ---
Demographics + + + | Address | [address] | | | [place] [address] | + + + | Home Phone [...] Team Providers + +------+ + | Care Collection Systems Modeler Name | Role | Phone | + [...] | +--------+ + + + + | 11/03/ | Emergency | [facility] | Corbin Hastings MD | Fall, initial | | 2019 | | [facility] | [address] | encounter (Primary | | | | CENTER [address] | [place] | Dx); Injury of head, | | | | [place] | [address] | initial encounter; | | | | [address] | | Contusion of right | | | | [phone] | | upper extremity, | | | | | | initial encounter | +--------+ + + + + Social [...] + + + | Blood Pressure | 139/61 | 11/03/2019 7:28 PM | | | | | PST | | + + + + + | Pulse | 96 | 11/03/2019 7:17 PM | Simultaneous filing. | | | | PST | User may not have | | | | | seen previous data. | + + + + + | Temperature | 36.2 C (97.1 F) | 11/03/2019 7:17 PM | | | | | PST | | + + + + + | Respiratory Rate | 18 | 11/03/2019 7:17 PM | | | | | PST | | + + + + + | Oxygen Saturation | 98% | 11/03/2019 7:17 PM | Simultaneous filing. | | | | PST | User may not have | | | | | seen previous data. | + + + + + | Inhaled Oxygen | - | - | | | Concentration | | | | + + + + + | Weight | 54.4 kg (119 lb 14.9 | 11/03/2019 7:17 PM | | | | oz) | PST | | + + + + + | Height | 165.1 cm (5' 5") | 11/03/2019 7:17 PM | | | | | PST | | + + + + + | Body Mass Index | 19.96 | 11/03/2019 7:17 PM | | | | | PST | | + + + + + documented in this encounter Discharge Instructions Instructions Corbin Hastings MD - 11/03/2019May use pain medication as needed May use sling for comfort Return for worsening symptoms, the new complaints documented in this encounter [...] | | | | | | type ([facility]) | | | | | [...] + +---------+ + + | | Take 1-2 tablets by | 12 | 0 | 11/03/19 | | | HYDROcodone-acetamin | mouth every 6 hours | tablet | | 20 | 0 | | ophen (NORCO) 5-325 | as needed for Pain. | | | | | | mg per tablet | | | | | | [...] [place] | | | | | | [address] | | | | | | | | +--------+ + + + + | 04/11/ | Appointment | Radiology | Shawn Michael | | | 2020 | | | MD [address] | | | | | | [address] [place] | | | | | | [place] [address] | | | | | | [phone] | | | | | | | | +--------+ + + + + | 04/13/ | Office | Cardiology | Shawn Michael | | | 2020 | Visit | | MD [address] | | | | | | [address] [place] | | | | | | [place] [address] | | | | | | [phone] | | | | | | | | +--------+ + + + + + +------+--------+ + + | Name | Type | Priori | Associated Diagnoses | Date/Time | | | | ty | | | + +------+--------+ + + | ED INFORMATION | MICHAEL | Routin | | 11/03/2019 7:11 PM | | EXCHANGE | | e | | PST | + +------+--------+ + + documented as of this encounter Procedures + +--------+ + + + | Procedure Name | Priori | Date/Time | Associated Diagnosis | Comments | | | ty | | | | + +--------+ + + + | CT HEAD WO CONTRAST | STAT | 11/03/2019 | | Results for this | | | | 7:58 PM | | procedure are in the | | | | PST | | results section. | + +--------+ + + + | XR HUMERUS RIGHT 2 + | STAT | 11/03/2019 | | Results for this | | VW | | 7:49 PM | | procedure are in the | | | | PST | | results section. | + +--------+ + + + | ED INFORMATION | Routin | 11/03/2019 | | | | EXCHANGE | e | 7:11 PM | | | | | | PST | | | + +--------+ + + + +---+--------+ | | | | | Proced | | | ure | | | Note - | | | Kobe, | | | Lab In | | | | | | Hlseve | | | n - | | | 11/03/ | | | 2019 | | | 7:12 | | | PM PST | | | | | | [...] | | | FICATI | | | ON? | | | | | | 0 | | | 19:10? | | | SRIDEVI | | | , | | | MAHI | | | J?MRN: | | | | | | [id number] | | | [id number] | | | riteri | | | [...] | | | St. | | | [place] | | | y | | | [...] | al 6 0 | | | | | | Provid | | | ence | | | St. | | | [facility] | | | Medica | | | l | | | Center | | | 11 0 | | | [facility] | | | | | | [facility] | | | l | | | Hospit | | | al 1 0 | | | [facility] | St[facility] | | | [place] | | | y | | | [...] | | | int | | | Joe | | | [...] | | e of | | | washoe | | | | | | palencia [...] | | | Pneumo | | | tricai, | | | unspec | | | [...] | | | 2019 | | | [facility] | | | | | | Genera [...] | | | 2019 | | | [facility] | | | | | | Genera [...] | | | 2019 | | | [facility] | | | | | | Genera [...] | | | hy | | | Care | | | [...] | | | M.D. | | | Agri Business Agent | | | al | | | [...] | | | otify/ | | | [id number] | | | [id number] | | | [id number] | | | [id number] | | | [id number] | | | [id number] | | | | | | PLEASE [...] this encounter Results CT Head wo Contrast (11/03/2019 7:58 PM PST) + + | Specimen | + + | | + + + + + | Impressions | Performed At | + + + | 1. RIGHT PARIETAL SCALP CONTUSION/HEMATOMA WITHOUT ASSOCIATED | [facility] | | FRACTURE OR EVIDENCE OF ACUTE INTRACRANIAL DISEASE. 2. 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 Images were provided for interpretation on October | | | 2019 at 2000 hours. Results were finalized at 2010 hours. | | | Dictated and Signed by: Sivakumar Ramon MD Electronically signed: | | | 11/03/2019 8:09 PM | | + + + + + + | Narrative | Performed At | + + + | UNENHANCED HEAD CT 11/03/2019 7:58 PM CLINICAL HISTORY: | [facility] | | Emergent Patient - see comments Pain COMPARISON: CT | | | September 09 and more remote imaging TECHNIQUE: Axial unenhanced | | | images are performed through the head, along with coronal and | | | sagittal reformations. FINDINGS: Mild to moderate cerebral | | | atrophy and commensurate ex vacuo ventricular dilation persist. | | | There is similar patchy hypoattenuation of the periventricular | | | white matter. There is stable localized encephalomalacia in the | | | left occipital lobe, consistent with a chronic infarct. Tomlinson-white | | | differentiation is maintained elsewhere. There are similar small | | | hypodensities in the bilateral basal ganglia, consistent with chronic | | | lacunar infarcts. The brainstem and cerebellum are unremarkable. | | | There is no mass effect, evidence of recent intracranial hemorrhage | | | or extra-axial abnormality. Heavily calcified plaque is present in | | | the terminal vertebral and internal carotid arteries. Bilateral | | | prosthetic ocular lenses are present. There is posterior right | | | parietal scalp swelling/hematoma without associated fracture. A | | | small rounded high density structure posterior laterally in the right | | | parietal scalp in this vicinity is unchanged from previous imaging. | | | There is a similar sessile smoothly marginated sclerotic lesion | | | arising from the inner table of the right frontal calvarium, | | | consistent with an osteoma. Asymmetric degeneration of the right | | | temporomandibular joint is apparent. Imaged paranasal sinuses are | | | well aerated along with the middle ear cavities and mastoid air | | | cells. | | + + + + + | Procedure Note | + + | Kobe, Rad Results In - 11/03/2019 8:12 PM PST UNENHANCED HEAD CT 11/03/2019 7:58 PM | | | | CLINICAL HISTORY: Emergent Patient - see comments | | Pain | | | | COMPARISON: CT September 09 and more remote imaging | | | | TECHNIQUE: Axial unenhanced images are performed through the head, along with | | coronal and sagittal reformations. | | | | FINDINGS: Mild to moderate cerebral atrophy and commensurate ex vacuo | | ventricular dilation persist. There is similar patchy hypoattenuation of the | | periventricular white matter. There is stable localized encephalomalacia in the | | left occipital lobe, consistent with a chronic infarct. Tomlinson-white | | differentiation is maintained elsewhere. There are similar small hypodensities | | in the bilateral basal ganglia, consistent with chronic lacunar infarcts. The | | brainstem and cerebellum are unremarkable. There is no mass effect, evidence of | | recent intracranial hemorrhage or extra-axial abnormality. Heavily calcified | | plaque is present in the terminal vertebral and internal carotid arteries. | | Bilateral prosthetic ocular lenses are present. There is posterior right | | parietal scalp swelling/hematoma without associated fracture. A small rounded | | high density structure posterior laterally in the right parietal scalp in this | | vicinity is unchanged from previous imaging. There is a similar sessile | | smoothly marginated sclerotic lesion arising from the inner table of the right | | frontal calvarium, consistent with an osteoma. Asymmetric degeneration of the | | right temporomandibular joint is apparent. Imaged paranasal sinuses are well | | aerated along with the middle ear cavities and mastoid air cells. | | | | IMPRESSION: | | 1. RIGHT PARIETAL SCALP CONTUSION/HEMATOMA WITHOUT ASSOCIATED FRACTURE OR | | EVIDENCE OF ACUTE INTRACRANIAL DISEASE. | | | | 2. 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 | | | | Images were provided for interpretation on November 03, 2019 at 2000 hours. | | Results were finalized at 2010 hours. | | | | Dictated and Signed by: Sivakumar Ramon MD | | Electronically signed: 11/03/2019 8:09 PM | + + + +---------+ + + | Performing | Address | City/State/Zipcode | Phone Number | | Organization | | | | + +---------+ + + | [facility] | | | | + +---------+ + + XR Humerus Right 2 + Vw (11/03/2019 7:49 PM PST) + + | Specimen | + + | | + + + + + | Impressions | Performed At | + + + | 1. NO RADIOGRAPHIC EVIDENCE OF ACUTE INJURY. 2. | [facility] | | DEGENERATIVE CHANGES OF THE SHOULDER AND PROBABLE CALCIFIC | | | TENDINITIS OF THE ROTATOR CUFF. Dictated and Signed by: Sivakumar | | | MD Tristen Electronically signed: 11/03/2019 8:32 PM | | + + + + + + | Narrative | Performed At | + + + | TWO VIEWS RIGHT HUMERUS 11/03/2019 7:49 PM CLINICAL HISTORY: FALL | [facility] | | COMPARISON: Chest radiographs September 06 and more remote imaging | | | FINDINGS: There is generalized osteopenia. The bones are well | | | aligned and no fracture or subluxation is apparent. There are | | | degenerative changes of acromioclavicular and glenohumeral joints. | | | Calcification along the lateral margin of the humeral head likely | | | lies within the rotator cuff. Evaluation of the elbow is limited. | | | Imaged chest and soft tissues are otherwise unremarkable. | | + + + + + | Procedure Note | + + | Kobe, Rad Results In - 11/03/2019 8:35 PM PST TWO VIEWS RIGHT HUMERUS 11/03/2019 7:49 | | PMCLINICAL HISTORY: FALLCOMPARISON: Chest radiographs September 06 and more remote | | imagingFINDINGS: There is generalized osteopenia. The bones are well aligned and | | nofracture or subluxation is apparent. There are degenerative changes | | ofacromioclavicular and glenohumeral joints. Calcification along the lateralmargin of | | the humeral head likely lies within the rotator cuff. Evaluation ofthe elbow is | | limited. Imaged chest and soft tissues are otherwise unremarkable.IMPRESSION: 1. NO | | RADIOGRAPHIC EVIDENCE OF ACUTE INJURY.2. DEGENERATIVE CHANGES OF THE SHOULDER AND | | PROBABLE CALCIFIC TENDINITIS OF THEROTATOR CUFF.Dictated and Signed by: Sivakumar Ramon MD | | Electronically signed: 11/03/2019 8:32 PM | |the elbow is limited. Imaged chest and soft tissues are otherwise unremarkable. | | | |IMPRESSION: | |1. NO RADIOGRAPHIC EVIDENCE OF ACUTE INJURY. | | | |2. DEGENERATIVE CHANGES OF THE SHOULDER AND PROBABLE CALCIFIC TENDINITIS OF THE | |ROTATOR CUFF. | | | |Dictated and Signed by: Sivakumar Ramon MD | | Electronically signed: 11/03/2019 8:32 PM | + + + +---------+ + [...] encounter | + + | Contusion of right upper extremity, initial encounter | + + documented in this encounter Administered Medications + +--------+ + +------+------+ | Medication Order | MAR | Action | Dose | Rate | Site | | | Action | Date | | | | + +--------+ + +------+------+ | HYDROcodone-acetaminophen | Given | 11/03/19 | 1 tablet | | | | (NORCO) 5-325 mg per tablet | | 20 7:26 | | | | | tablet 1 tablet, Oral, ONCE, Wed | | PM PST | | | | | 11/03/19 at 1925, For 1 dose | | | | | | + +--------+ + +------+------+ +---+---+ | | | +---+---+ + +-------+ + +---+---+ | HYDROcodone-acetaminophen | Given | 11/03/19 | 1 tablet | | | | (NORCO) 5-325 mg per tablet | | 20 8:29 | | | | | tablet 1 tablet, Oral, ONCE, Wed | | PM PST | | | | | 11/03/19 at 2020, For 1 dose | | | | [...]
--- OUTSIDE RECORDS SUMMARY | ~2020-03-14 | XMS | Encounter Summary ---
Demographics + + + | Address | [address] | | | [place] [address] | + + + | Home Phone [...] Team Providers + +------+ + | Care Stage Builder Name | Role | Phone | + +------+ + | Candido Link | PCP | | | MD | | | + +------+ + Reason for Visit + + + | Reason | Comments | + + + | Diarrhea | | + + + Encounter Details +--------+ + + + + | Date | Type | Department | Care Team | Description | +--------+ + + + + | 10/27/ | Telephone | [facility] | Nikolay, | Diarrhea | | 2020 | | MEDICINE [address] [place] [address] | MD Candido | | | | | [facility] | [address] [place] [address] | | | | | [place] [address] | [place] [address] | | | | | [phone] | [phone] | | | | | | | [...] | 2019 | Visit | | RECREATION ATTENDANT [address] | | | | | | [place] | | | | | | [address] | | | | | | | | +--------+ + + + + | 04/11/ | Appointment | Radiology | Shawn Michael | | | 2019 | | | MD [address] | | | | | | [address] [place] | | | | | | [place] [address] | | | | | | [phone] | | | | | | | | +--------+ + + + + | 04/13/ | Office | Cardiology | Shawn Michael | | 2019 | Visit | | MD Marcelino [address] | | | | | | [address] [place] | | | | | | [place] [address] | | | | | | [phone] | | | | | | | [...]
--- OUTSIDE RECORDS SUMMARY | ~2020-03-14 | XMS | Encounter Summary ---
Demographics + + + | Address | [address] | | | [place] [address] | + + + | Home Phone [...] Team Providers + +------+ + | Care Dental Associate Name | Role | Phone | [...] [place] | | | | | | [address] | | | | | | [phone] | | | +--------+ + + + [...] [place] | | | | | | [address] | | | | | | | | +--------+ + + + + | 04/11/ | Appointment | Radiology | Shawn Michael | | | 2019 | | | MD Marcelino [address] | | | | | | [address] | | | | | | [place] [address] | | | | | | [phone] | | | | | | | | +--------+ + + + + | 04/13/ | Office | Cardiology | Shawn Michael | | | 2019 | Visit | | MD Marcelino [address] | | | | | | [address] [place] | | | | | | [place] [address] | | | | | | [phone] | | | | | | | [...] Halfway | infusion. | | | | n [...] | interventio | | Halfway | | 019 | | scheduled/d | [...] | | | | Halfway | | 2018 | | | interventio [...] | Halfway | CHRONIC OXYGEN USE | 2019 | [...] | interventio | | Halfway | | 019 | | scheduled/d | [...] | | as presented in [facility] | | | | | | Pt [...]
--- OUTSIDE RECORDS SUMMARY | ~2020-03-14 | XMS | Encounter Summary ---
Demographics + + + | Address | [address] | | | [place] [address] | + + + | Home Phone [...] Team Providers + +------+ + | Care Fireworks Display Specialist Name | Role | Phone | + +------+ + | Candido Likn | PCP | | | MD | [...] [place] | | | | | | [address] | | | | | | [phone] | | | +--------+ + + + [...] | | | | | [place] [address] | | | | | | [phone] | | | | | | | | +--------+ + + + + | 04/13/ | Office | Cardiology | Shawn Michael | | 2019 | Visit | | MD Marcelino [address] | | | | | | [address] | | | | | | [place] [address] | | | | | | [phone] | | | | | | | [...]
--- OUTSIDE RECORDS SUMMARY | ~2020-03-14 | XMS | Encounter Summary ---
Demographics + + + | Address | [address] | | | [place] [address] | + + + | Home Phone [...] Team Providers + +------+ + | Care Stewardess Supervisor Name | Role | Phone | [...] | | [address] [place] | [facility] [place] [address] | | | | | [place] [address] | | | | | | [phone] | | | +--------+ + + + [...] | 2019 | Visit | | CLINICAL APPEALS RN [address] | | | | | | [place] | | | | | | [address] | | | | | | | | +--------+ + + + + | 04/11/ | Appointment | Radiology | Shawn Michael | | | 2019 | | | MD [address] | | | | | | [address] [place] | | | | | | [place], [place] [address] | | | | | | [phone] | | | | | | | | +--------+ + + + + | 04/13/ | Office | Cardiology | Shawn Michael | | 2019 | Visit | | MD [address] | | | | | | [address] [place] | | | | | | [place] [address] | | | | | | [phone] | | | | | | | [...]
--- OUTSIDE RECORDS SUMMARY | ~2020-03-14 | XMS | Encounter Summary ---
Demographics + + + | Address | [address] | | | [place] [address] | + + + | Home Phone [...] Team Providers + +------+ + | Care Change Coordinator Name | Role | Phone | [...] | | [address] [place] | [facility] [place] [address] | | | | | [place] [address] | | | | | | [phone] | | | +--------+ + + + [...] | | 2019 | Visit | | TRANSPORTATION AGENT [address] | | | | | | [place] | | | | | | [address] | | | | | | | | +--------+ + + + + | 04/11/ | Appointment | Radiology | Shawn Michael | | | 2019 | | | MD [address] | | | | | | [address] [place] | | | | | | [place], [place] [address] | | | | | | [phone] | | | | | | | | +--------+ + + + + | 04/13/ | Office | Cardiology | Shawn Michael | | 2019 | Visit | | MD [address] | | | | | | [address] [place] | | | | | | [place] [address] | | | | | | [phone] | | | | | | | | +--------+ + + + + documented as of this encounter Procedures + +--------+ + + + | Procedure Name | Priori | Date/Time | Associated Diagnosis | Comments | | | ty | | | | + +--------+ + + + | CT RENAL STONE WO | Routin | 11/24/2018 | | Results for this | | CONTRAST | e | 12:00 AM | | procedure are in the | | | | PST | | results section. | + +--------+ + + + documented in this encounter Results CT Renal Stone Wo Contrast (11/24/2018 12:00 AM PST) + + | Specimen [...]
--- OUTSIDE RECORDS SUMMARY | ~2020-03-14 | XMS | Encounter Summary ---
Demographics + + + | Address | [address] | | | [place] [address] | + + + | Home Phone [...] Team Providers + +------+ + | Care Desktop Specialist Name | Role | Phone | [...] | | | | | [place] | | | | | | [address] | | | | | | [phone] | | | +--------+ + + + [...] [place] | | | | | | [address] | | | | | | | | +--------+ + + + + | 04/11/ | Appointment | Radiology | Shawn Michael | | 2019 | | | MD Marcelino [address] | | | | | | [address] | | | | | | [place] [address] | | | | | | [phone] | | | | | | | | +--------+ + + + + | 04/13/ | Office | Cardiology | Shawn Michael | | | 2020 | Visit | | MD Marcelino [address] | | | | | | [address] [place] | | | | | | [place] [address] | | | | | | [phone] | | | | | | | [...] - OASIS RECERT | | Discipline - Care Home | [...]
--- OUTSIDE RECORDS SUMMARY | ~2020-03-14 | XMS | Encounter Summary ---
Demographics + + + | Address | [address] | | | [place] [address] | + + + | Home Phone [...] Team Providers + +------+ + | Care Application Assistant Name | Role | Phone | [...] | | | | , [address] | [place] [address] | | | | | | [address] | Phone: | | | | | | [place], | [phone] | | | | | | [place] | Fax: | | | | | | [address] | [phone] | | | | | | Phone: | | | | | | | [phone] | | | | | | | Fax: | | | | | | | [phone] | | + + + + + + + Encounter Details +--------+---------+ + + + | Date | Type | Department | Care Team | Description | +--------+---------+ + + + | 08/09/ | Office | [facility] | Jag Anthony | Recurrent UTI | | 2019 | Visit | [address] | MD Arianna [address] | (Primary Dx); | | | | [place] | [place] | Pyuria; 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 Diagnoses and all orders for this visit: Recurrent UTI - * [facility] Urology - AMB Referral - estradiol (ESTRACE [...] of urinary tract infections. 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 CC: Candido Link MD documented in this encounter Plan of Treatment +--------+ + + + + | Date | Type | Specialty | Care Team | Description | +--------+ + + + + | 03/23/ | Office | Anticoagulation | García Harris, | | | 2019 | Visit | | [facility] [address] | | | | | | [place] | | | | | | [address] | | | | | | | | +--------+ + + + + | 04/11/ | Appointment | Radiology | Shawn Michael | | | 2019 | | | MD [address] | | | | | | [address] [place] | | | | | | [place] [address] | | | | | | [phone] | | | | | | | | +--------+ + + + + | 04/13/ | Office | Cardiology | Shawn Michael | | | 2019 | Visit | | MD [address] | | | | | | [address] [place] | | | | | | [place] [address] | | | | | | [phone] | | | | | | | [...] | CENTER - | | | | k[place]le.No further work-up | | LABORATORY | | [...] | [address] | [place], [place] | [phone] | | [facility] | | [address] | | | - LABORATORY | | [...] [address] | [place] | [phone] | | [facility] | | [address] | | | - LABORATORY | | [...] 1.001 - 1.030 | | | | Johnston, | | | | | | UA, [...]
--- OUTSIDE RECORDS SUMMARY | ~2020-03-14 | XMS | Encounter Summary ---
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) | | | | | | | Procedures | | | | | | | VITAMIN MANAGER | | | + + + + + + + Encounter Details +--------+---------+ + + + | Date | Type | Department | Care Team | Description | +--------+---------+ + + + | 10/20/ | Office | [facility] | Shawn Michael | Chest pain, | | 2019 | Visit | CARDIOLOGY [address] | MD Marcelino [address] | unspecified type | | | | [address] [place], | [address] [place] | (Primary Dx); Acute | | | | [place] [address] | [place] [address] | on chronic heart | | | | [phone] | [phone] | failure, unspecified | | | | [...] and previously received her cardiology care in [place], [place]. In February 2019 she underwent transaortic [...] Flex Sig; Surgeon: Edwin Stoddard MD; Location: [facility] PROCEDURE UNIT HYSTERECTOMY NIRMAL AND BSO TONSILLECTOMY AND ADENOIDECTOMY UPPER GASTROINTESTINAL ENDOSCOPY N/A 06/07/2019 Procedure: EGD; Surgeon: Edwin Stoddard MD; Location: [facility] MEDICAL PROCEDURE UNIT UPPER GASTROINTESTINAL ENDOSCOPY N/A 08/20/2019 Procedure: EGD; Surgeon: John Grimes MD; Location: [facility] MEDICAL PROCEDURE UNIT Family History Problem Relation [...] PLT 242 10/14/2019 I reviewed records from [facility] for hospitalization,including H& P, Discharge Summary [...] made to ensure accuracy; however, inadvertent computerized personal care assistant errors may be pre sent. Electronically signed by: Merrick Michael MD PhD FACC 10/20/2019 documented in this encounter Plan of Treatment +--------+ + + + + | Date | Type | Specialty | Care Team | Description | +--------+ + + + + | 03/23/ | Office | Anticoagulation | García Harris, | | | 2019 | Visit | | SUPERVISOR VARNISH [address] | | | | | | [place] | | | | | | [address] | | | | | | | | +--------+ + + + + | 04/11/ | Appointment | Radiology | Shawn Michael | | | 2019 | | | MD [address] | | | | | | [address] [place] | | | | | | [place] [address] | | | | | | [phone] | | | | | | | | +--------+ + + + + | 04/13/ | Office | Cardiology | Shawn Michael | | | 2019 | Visit | | MD [address] | | | | | | [address] [place] | | | | | | [place] [address] | | | | | | [phone] | | | | | | | [...] | | | | | MARCELINO JOSEPH ([id number]) on | | | | | | [...]
--- OUTSIDE RECORDS SUMMARY | ~2020-03-14 | XMS | Encounter Summary ---
Demographics + + + | Address | [address] | | | [place] [address] | + + + | Home Phone [...] Team Providers + +------+ + | Care Funeral Home General Manager Name | Role | Phone | [...] + + | 10/27/ | Telephone | [facility] INTER[facility] | Nikolay, | Diarrhea | | 2020 | | MEDICINE [address] [place] [address] | MD Candido | | | | | [facility] | [address] [place] [address] | | | | | [place] [address] | [place] [address] | | | | | [phone] | [phone] | | | | | | | [...] | | 2019 | Visit | | TIN WORKER [address] | | | | | | [place] | | | | | | [address] | | | | | | | | +--------+ + + + + | 04/11/ | Appointment | Radiology | Shawn Michael | | | 2019 | | | MD [address] | | | | | | [address] [place] | | | | | | [place] [address] | | | | | | [phone] | | | | | | | | +--------+ + + + + | 04/13/ | Office | Cardiology | Shawn Michael | | 2019 | Visit | | MD Marcelino [address] | | | | | | [address] [place] | | | | | | [place] [address] | | | | | | [phone] | | | | | | | [...]
--- OUTSIDE RECORDS SUMMARY | ~2020-03-14 | XMS | Encounter Summary ---
Demographics + + + | Address | [address] | | | [place] [address] | + + + | Home Phone [...] Team Providers + +------+ + | Care Unix Administrator Name | Role | Phone | [...] [place] | | | | | | [address] | | | | | | [phone] | | | +--------+ + + + [...] | | | | | [place] [address] | | | | | | [phone] | | | | | | | | +--------+ + + + + | 04/13/ | Office | Cardiology | Shawn Michael | | | 2019 | Visit | | MD Marcelino [address] | | | | | | [place] | | | | | | [place] [address] | | | | | | [phone] | | | | | | | [...]
--- OUTSIDE RECORDS SUMMARY | ~2020-03-14 | XMS | Encounter Summary ---
Demographics + + + | Address | [address] | | | [place] [address] | + + + | Home Phone [...] Team Providers + +------+ + | Care Ventilating Engineer Name | Role | Phone | [...] | | | , [address] | [place] [address] | | | | | | [address] | Phone: | | | | | | [place], | [phone] | | | | | | [place] | Fax: | | | | | | [address] | [phone] | | | | | | Phone: | | | | | | | [phone] | | | | | | | Fax: | | | | | | | [phone] | | + + + + + + + Encounter Details +--------+---------+ + + + | Date | Type | Department | Care Team | Description | +--------+---------+ + + + | 08/30/ | Office | [facility] | Jag Anthony | Recurrent UTI | | 2019 | Visit | [address] | MD Arianna [address] | (Primary Dx); 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 | | | | [address] | [address] | bladder); Urge | | | | [phone] | | incontinence; | | | | [...] Flex Sig; Surgeon: Edwin Stoddard MD; Location: [facility] PROCEDURE UNIT HYSTERECTOMY NIRMAL AND BSO TONSILLECTOMY AND ADENOIDECTOMY UPPER GASTROINTESTINAL ENDOSCOPY N/A 06/07/2019 Procedure: EGD; Surgeon: Edwin Stoddard MD; Location: [facility] MEDICAL PROCEDURE UNIT UPPER GASTROINTESTINAL ENDOSCOPY N/A 08/20/2019 Procedure: EGD; Surgeon: John Grimes MD; Location: [facility] MEDICAL PROCEDURE UNIT Family History: [...] delayed get up and go test; decreased yarn examiner skeins strength bilaterally Data: Results for orders placed [...] pH, Urine 6.0 5.0 - 8.0 Specific [place] 1.029 1.001 - 1.030 Protein, Urine Negative [...] have not thoroughly proofread this note, and warp yarn sorter errors are very likely to occur. CC: Candido Link MD documented in this encounter Plan of Treatment +--------+ + + + + | Date | Type | Specialty | Care Team | Description | +--------+ + + + + | 03/23/ | Office | Anticoagulation | García Harris, | | | 2019 | Visit | | [address] | | | | | | [place] | | | | | | [id number] | | | | | | | | +--------+ + + + + | 04/11/ | Appointment | Radiology | Shawn Michael | | | 2019 | | | MD Marcelino [address] | | | | | | [address] [place] | | | | | | [place] [address] | | | | | | [phone] | | | | | | | | +--------+ + + + + | 04/13/ | Office | Cardiology | Shawn Michael | | | 2019 | Visit | | MD Marcelino [address] | | | | | | [address] [place] | | | | | | [place] [address] | | | | | | [phone] | | | | | | | [...]
--- OUTSIDE RECORDS SUMMARY | ~2020-03-14 | XMS | Encounter Summary ---
Demographics + + + | Address | [address] | | | [place] [address] | + + + | Home Phone [...] Providers + +------+ + | Care Manager Mac Name | Role | Phone | + [...] Visit | [place] [address] | STUDENT UNION CONSULTANT [address] | | | | | [place] | [place] | | | | | [address] | [address] | | | | | [phone] | | | +--------+ + + + [...] | | 2019 | Visit | | STOCK AND STATION AGENT [address] | | | | | | [place] | | | | | | [address] | | | | | | | | +--------+ + + + + | 04/11/ | Appointment | Radiology | Shawn Michael | | | 2019 | | | MD [address] | | | | | | [address] [place] | | | | | | [place] [address] | | | | | | [phone] | | | | | | | | +--------+ + + + + | 04/13/ | Office | Cardiology | Shawn Michael | | | 2019 | Visit | | MD [address] | | | | | | [address] [place] | | | | | | [place] [address] | | | | | | [phone] | | | | | | | [...]
--- OUTSIDE RECORDS SUMMARY | ~2020-03-14 | XMS | Encounter Summary ---
Demographics + + + | Address | [address] | | | [place] [address] | + + + | Home Phone [...] Team Providers + +------+ + | Care Conflicts Analyst Name | Role | Phone | [...] | | | | [place] | | | | | | [address] | | | | | | [phone] | | | +--------+ + + + [...] | | 2019 | Visit | | IMMIGRATION LAW SPECIALIST [address] | | | | | | [place] | | | | | | [address] | | | | | | | | +--------+ + + + + | 04/11/ | Appointment | Radiology | Shawn Michael | | | 2019 | | | MD [address] | | | | | | [address] [place] | | | | | | [place] [address] | | | | | | [phone] | | | | | | | | +--------+ + + + + | 04/13/ | Office | Cardiology | Shawn Michael | | | 2019 | Visit | | MD [address] | | | | | | [address] [place] | | | | | | [place], [place] [address] | | | | | | [phone] | | | | | | | [...]
--- OUTSIDE RECORDS SUMMARY | ~2020-03-14 | XMS | Encounter Summary ---
Demographics + + + | Address | [address] | | | [place] [address] | + + + | Home Phone [...] + +------+ + | Care Director Of Enterprise Strategy Name | Role | Phone | + [...] [place] | | | | | | [address] | | | | | | [phone] | | | +--------+ + + + [...] | | | | | [place] [address] | | | | | | [phone] | | | | | | | | +--------+ + + + + | 04/13/ | Office | Cardiology | Shawn Michael | | | 2019 | Visit | | MD Marcelino [address] | | | | | | [address] [address] | | | | | | [place] [address] | | | | | | [phone] | | | | | | | [...]
--- OUTSIDE RECORDS SUMMARY | ~2020-03-14 | XMS | Encounter Summary ---
Demographics + + + | Address | [address] | | | [place] [address] | + + + | Home Phone [...] Team Providers + +------+ + | Care Athletic Team Physician Name | Role | Phone | + +------+ + | Candido Link | PCP | | | MD | | | + +------+ + Encounter Details +--------+ + + + + | Date | Type | Department | Care Team | Description | +--------+ + + + + | 08/05/ | Orders Only | [facility] | Lina Correa | | | 2019 | | PULMONARY [address] | MD Jan [address] | | | | | [address] [place], | [address] [place] | | | | | [place] [address] | [place] [address] | | | | | [phone] | [phone] | | | | | | | [...] [place] | | | | | | [address] | | | | | | | | +--------+ + + + + | 04/11/ | Appointment | Radiology | Shawn Michael | | | 2019 | | | MD [address] | | | | | | [address] [place] | | | | | | [place] [address] | | | | | | [phone] | | | | | | | | +--------+ + + + + | 04/13/ | Office | Cardiology | Shawn Michael | | | 2019 | Visit | | MD Marcelino [address] | | | | | | [address] [place] | | | | | | [place] [address] | | | | | | [phone] | | | | | | | [...]
--- OUTSIDE RECORDS SUMMARY | ~2020-03-14 | XMS | Encounter Summary ---
Demographics + + + | Address | [address] | | | [place] [address] | + + + | Home Phone [...] Team Providers + +------+ + | Care Control Operator Flow Coat Name | Role | Phone | + [...] + + | 11/03/ | Emergency | [facility] | Corbin Hastings MD | [place], initial | | 2019 | | [facility] | [address] | encounter (Primary | | | | CENTER [address] | [place] | Dx); Injury of head, | | | | [place] | [address] | initial encounter; | | | | [address] | | Contusion of right | | | | [phone] | | upper extremity, | | | [...] | | | | | | type ([facility]) | | | | | [...] [place] | | | | | | [address] | | | | | | | | +--------+ + + + + | 04/11/ | Appointment | Radiology | Shawn Michael | | | 2020 | | | MD [address] | | | | | | [address] [place] | | | | | | [place] [address] | | | | | | [phone] | | | | | | | | +--------+ + + + + | 04/13/ | Office | Cardiology | Shawn Michael | | | 2020 | Visit | | MD [address] | | | | | | [address] [place] | | | | | | [place] [address] | | | | | | [phone] | | | | | | | [...] J?MRN: | | | | | | [id number] | | | [id number] | | | riteri | | | [...] | | | St. | | | [facility] | | | y | | | [...] | | 11 0 | | | [place] | | | | | | [facility] | | | l | | | [facility] | | | al 1 0 | | | [facility] | [facility] | | | [facility] | | | y | | | [...] | | e of | | | cocopah | | | | | | palencia [...] | | | 2019 | | | [place] | | | | | | Genera [...] | | | 2019 | | | [place] | | | | | | Genera [...] | | | 2019 | | | [place] | | | | | | Genera [...] | | | M.D. | | | Cobol Programmer | | | al | | | [...]
--- OUTSIDE RECORDS SUMMARY | ~2020-03-14 | XMS | Encounter Summary ---
Demographics + + + | Address | [address] | | | [place] [address] | + + + | Home Phone [...] Team Providers + +------+ + | Care Brim Welt Sewing Machine Operator Name | Role | Phone [...] [place] | | | | | | [address] | | | | | | [phone] | | | +--------+ + + + [...] | | | | | [place] [address] | | | | | | [phone] | | | | | | | | +--------+ + + + + | 04/13/ | Office | Cardiology | Shawn Michael | | 2019 | Visit | | MD Marcelino [address] | | | | | | [place] | | | | | | [place] [address] | | | | | | [phone] | | | | | | | [...]
--- OUTSIDE RECORDS SUMMARY | ~2020-03-14 | XMS | Encounter Summary ---
Demographics + + + | Address | [address] | | | [place] [address] | + + + | Home Phone [...] Providers + +------+ + | Care Business Assistant Name | Role | Phone | [...] + + | 11/25/ | Telephone | [facility] | Kaylyn Rivas, | T[facility] - Hosp [facility]U | | 2019 | | MEDICINE [facility] [address] | [place] | | | | | Angelito [address] | | | | | | [place] [address] | | | | | | [phone] | | | +--------+ + + + [...] | | 2020 | Visit | | PHYSICIAN RECRUITER [address] | | | | | | [place] | | | | | | [address] | | | | | | | | +--------+ + + + + | 04/11/ | Appointment | Radiology | Shawn Michael | | | 2019 | | | MD [address] | | | | | | [address] [place] | | | | | | [place] [address] | | | | | | [phone] | | | | | | | | +--------+ + + + + | 04/13/ | Office | Cardiology | Sahwn Michael | | 2019 | Visit | | MD [address] | | | | | | [address] [place] | | | | | | [place] [address] | | | | | | [phone] | | | | | | | [...]
--- OUTSIDE RECORDS SUMMARY | ~2020-03-14 | XMS | Encounter Summary ---
Demographics + + + | Address | [address] | | | [place] [address] | + + + | Home Phone [...] [place] | | | | | | [address] | | | | | | [phone] | | | +--------+ + + + [...] [place] | | | | | | [address] | | | | | | | | +--------+ + + + + | 04/11/ | Appointment | Radiology | Shawn Michael | | | 2019 | | | MD [address] | | | | | | [address] | | | | | | [place] [address] | | | | | | [phone] | | | | | | | | +--------+ + + + + | 04/13/ | Office | Cardiology | Shawn Michael | | 2019 | Visit | | Marcelino, MD [address] | | | | | | [address] | | | | | | [place] [address] | | | | | | [phone] | | | | | | | [...]
--- OUTSIDE RECORDS SUMMARY | ~2020-03-14 | XMS | Encounter Summary ---
Demographics + + + | Address | [address] | | | [place] [address] | + + + | Home Phone [...] Team Providers + +------+ + | Care Club Concierge Name | Role | Phone | + [...] | | | | [place] | | | | | | [address] | | | | | | [phone] | | | +--------+ + + + [...] | | 2019 | Visit | | LEASE EXAMINER [address] | | | | | | [place] | | | | | | [address] | | | | | | | | +--------+ + + + + | 04/11/ | Appointment | Radiology | Shawn Michael | | | 2019 | | | MD [address] | | | | | | [address] [place] | | | | | | [place] [address] | | | | | | [phone] | | | | | | | | +--------+ + + + + | 04/13/ | Office | Cardiology | Shawn Michael | | | 2019 | Visit | | MD [address] | | | | | | [address] [place] | | | | | | [place], [place] [address] | | | | | | [phone] | | | | | | | [...]
--- OUTSIDE RECORDS SUMMARY | ~2020-03-14 | XMS | Encounter Summary ---
Demographics + + + | Address | [address] | | | [place] [address] | + + + | Home Phone [...] Providers + +------+ + | Care Manager Media Name | Role | Phone | + +------+ + | Candido Link | PCP | | | MD | | | + +------+ + Encounter Details +--------+ + + + + | Date | Type | Department | Care Team | Description | +--------+ + + + + | 08/05/ | Orders Only | [facility] [place] | iLna Correa | | | 2019 | | PULMONARY [address] | MD Jan [address] | | | | | [place], | [address] [place] | | | | | [place] [address] | [place] [address] | | | | | [phone] | [phone] | | | | | | | [...] [place] | | | | | | [address] | | | | | | | | +--------+ + + + + | 04/11/ | Appointment | Radiology | Shawn Michael | | | 2019 | | | MD [address] | | | | | | [address] [place] | | | | | | [place] [address] | | | | | | [phone] | | | | | | | | +--------+ + + + + | 04/13/ | Office | Cardiology | Shawn Michael | | | 2019 | Visit | | MD Marcelino [address] | | | | | | [address] [place] | | | | | | [place] [address] | | | | | | [phone] | | | | | | | [...]
--- OUTSIDE RECORDS SUMMARY | ~2020-03-14 | XMS | Encounter Summary ---
Demographics + + + | Address | [address] | | | [place] [address] | + + + | Home Phone [...] Team Providers + +------+ + | Care Claims Agent Right Of Way Name | Role | Phone | + [...] [address] | [address] [facility] | | | | | [facility] [place] | [place] [address] | | | | | [address] | [phone] | | | | | [phone] | | | +--------+ + + + [...] [place] | | | | | | [address] | | | | | | | | +--------+ + + + + | 04/11/ | Appointment | Radiology | Shawn Michael | | 2019 | | | MD Marcelino [address] | | | | | | [address] | | | | | | [place] [address] | | | | | | [phone] | | | | | | | | +--------+ + + + + | 04/13/ | Office | Cardiology | Shawn Michael | | | 2019 | Visit | | MD Marcelino [address] | | | | | | [address] | | | | | | [place] [address] | | | | | | [phone] | | | | | | | [...]
--- OUTSIDE RECORDS SUMMARY | ~2020-03-14 | XMS | Encounter Summary ---
Demographics + + + | Address | [address] | | | [place] [address] | + + + | Home Phone [...] Team Providers + +------+ + | Care Reference Archivist Name | Role | Phone | [...] MD Candido | | | | | [facility] | [address] [place] [address] | | | | | [place] [address] | [place] [address] | | | | | [phone] | [phone] | | | | | | | [...] | | 2019 | Visit | | DENTAL TECHNICIAN INSTRUCTOR [address] | | | | | | [place] | | | | | | [address] | | | | | | | | +--------+ + + + + | 04/11/ | Appointment | Radiology | Shawn Michael | | | 2019 | | | MD [address] | | | | | | [address] [place] | | | | | | [place] [address] | | | | | | [phone] | | | | | | | | +--------+ + + + + | 04/13/ | Office | Cardiology | Shawn Michael | | | 2019 | Visit | | MD [address] | | | | | | [address] [place] | | | | | | [place], [place] [address] | | | | | | [phone] | | | | | | | [...]
--- OUTSIDE RECORDS SUMMARY | ~2020-03-14 | XMS | Encounter Summary ---
Demographics + + + | Address | [address] | | | [place] [address] | + + + | Home Phone [...] Team Providers + +------+ + | Care Portainer Operator Name | Role | Phone | [...] VISIT | | 2018 | Visit | [place] [address] | [place] | | | | | ST [place] | | | | | | [address] | | | | | | [phone] | | | +--------+ + + + [...] + + + | Blood Pressure | 120/72 | 06/24/2019 10:20 AM | | | | | PDT | | + + + + + | Pulse | 102 | 06/24/2019 10:20 AM | | | | | PDT | | + + + + + | Temperature | 37 C (98.6 F) | 06/24/2019 10:20 AM | | | | | PDT | | + + + + + | Respiratory Rate | 16 | 06/24/2019 10:20 AM | | | | | PDT | | + + + + + | Oxygen Saturation | 95% | 06/24/2019 10:20 AM | | | | | PDT [...] | | | | | [place] [address] | | | | | | [phone] | | | | | | | | +--------+ + + + + | 04/13/ | Office | Cardiology | Shawn Michael | | | 2019 | Visit | | MD Marcelino [address] | | | | | | [place] | | | | | | [place] [address] | | | | | | [phone] | | | | | | | [...] CHF | Problem: Respiratory | | | No s/ of CHF noted | | Management | Status | Comple | | today. Arcadio verbalizes | | | | yoel | | s/s to report to MD or | | | | | | RN | + + +--------+--------+ + documented in this encounter"
--- OUTSIDE RECORDS SUMMARY | ~2020-03-14 | XMS | Encounter Summary ---
Demographics + + + | Address | [address] | | | [place] [address] | + + + | Home Phone [...] Providers + +------+ + | Care Senior Web Designer Name | Role | Phone | [...] [place] | | | | | | [address] | | | | | | [phone] | | | +--------+ + + + [...] + | Blood Pressure | 100/50 | 10/07/2019 2:58 PM | | | | | PST | | + + + + + | Pulse | 94 | 10/07/2019 2:58 PM | | | | | PST | | + + + + + | Temperature | 36.5 C (97.7 F) | 10/07/2019 2:58 PM | | | | | PST | | + + + + + | Respiratory Rate | - | - | | + + + + + | Oxygen Saturation | 93% | 10/07/2019 2:58 PM | | | | | PST [...] | | | | | [place] [address] | | | | | | [phone] | | | | | | | | +--------+ + + + + | 04/13/ | Office | Cardiology | Shawn Michael | | | 2019 | Visit | | MD Marcelino [address] | | | | | | [address] [place] | | | | | | [place] [address] | | | | | | [phone] | | | | | | | [...] equipment | | | 1 goal | 1 goal | | Equipment | needs | 09/15/ | Active | linked to | interventio | | Fabrication and | | 2019 | | scheduled/d | n | | Training | | | | ocumented | scheduled/d | | Disciplines: | | | | interventio | ocumented | | Occupational Therapy | | | | n | in [...] HH OT ADAPTIVE | OT Adaptive | | No | | | EQUIPMENT | Equipment | | | | | Description: By | Fabrication and | | | | | 10/12/2019, patient | Training | | | | | will demonstrate | | | | | | safe use adaptive | | | | | | equipment during | | | | | | ADLs. [...] | + + +--------+--------+ + | OT adaptive | Problem: OT Adaptive | | | OT discussed purchase | | equipment | Equipment | Comple | | of adaptive equipment: | | fabrication and | Fabrication and | yoel | | customer experience consultant, and sock aid. | | training | TrainingGoal: HH OT | | | OT to follow up with | | Description: | ADAPTIVE EQUIPMENT | | | insurance re: purchase | | Evaluate patient and | | | | of adaptive equipment. | | train patient | | | | | | and/or caregiver in | | | | | | the use of customer experience consultant, | | | | | | sock poli and | | | | | | assistive bathing | | | | | | devices to increase | | | | | | independent | | | | | | functioning. | | | | | + + +--------+--------+ + documented in this encounter"
--- OUTSIDE RECORDS SUMMARY | ~2020-03-14 | XMS | Encounter Summary ---
Demographics + + + | Address | [address] | | | [place] [address] | + + + | Home Phone [...] Team Providers + +------+ + | Care Trial [address] Judge Name | Role | Phone | [...] [address] [place], [place] | [place] [address] | | | | | [address] | [phone] | | | | | [phone] | | | +--------+ + + + [...] CASTRO | | | | | | [id number] | | | | | | | | +--------+ + + + + | 04/11/ | Appointment | Radiology | Shawn Michael | | 2019 | | | MD Marcelino [address] | | | | | [address] | | | | | | [place] [address] | | | | | | [phone] | | | | | | | | +--------+ + + + + | 04/13/ | Office | Cardiology | Shawn Michael | | | 2020 | Visit | | MD Marcelino [address] | | | | | | [address] [place] | | | | | | [place] [address] | | | | | | [phone] | | | | | | | [...]
--- OUTSIDE RECORDS SUMMARY | ~2020-03-14 | XMS | Encounter Summary ---
Demographics + + + | Address | [address] | | | [place] [address] | + + + | Home Phone [...] Team Providers + +------+ + | Care Authorization Rep Name | Role | Phone | + [...] | +--------+ + + + + | 10/13/ | Home Care | [facility] [place] | Bernardo Souza | OT REPEAT VISIT | | 2019 | Visit | [facility] [address] | [place], [place] | | | | | [place] | | | | | | [address] | | | | | | [phone] | | | +--------+ + + + [...] + + + | Blood Pressure | 102/54 | 10/13/2019 2:39 PM | | | | | PST | | + + + + + | Pulse | 92 | 10/13/2019 2:39 PM | | | | | PST | | + + + + + | Temperature | 36.3 C (97.3 F) | 10/13/2019 2:39 PM | | | | | PST | | + + + + + | Respiratory Rate | - | - | | + + + + + | Oxygen Saturation | 96% | 10/13/2019 2:39 PM | | | | | [...] | | | | | [place] [address] | | | | | | [phone] | | | | | | | | +--------+ + + + + | 04/13/ | Office | Cardiology | Shawn Michael | | | 2019 | Visit | | MD Marcelino [address] | | | | [address] [place] | | | | | | [place] [address] | | | | | | [phone] | | | | | | | [...] motor | | | 1 goal | 1 goal | | COORDINATION | exercises | 09/15/ | Active | linked to | interventio | | DEFICITS | | 2018 | | scheduled/d | n | | Disciplines: | | | | ocumented | scheduled/d | | Occupational Therapy | | | | interventio | ocumented [...] OT FINE MOTOR | | No | | | COORDINATION | COORDINATION | | | | | DEFICITS | DEFICITS | | | | + + +--------+-------+ [...] | + + +--------+--------+ + | OT fine motor | Problem: OT FINE | | | | | coordination | MOTOR COORDINATION | Comple | | | | Description: | DEFICITSGoal: OT | yeol | | | | Occupational | FINE MOTOR | | | | | Therapist to visit | COORDINATION | | | | | to develop home | DEFICITS | | | | | exercise program to | | | | | | enhance skills and | | | | | | performance in fine | | | | | | motor and dexterity. | | | | | + + [...] +--------+--------+ + | OT muscle | Problem: OT | | | | | re-education [...]
--- OUTSIDE RECORDS SUMMARY | ~2020-03-14 | XMS | Encounter Summary ---
Demographics + + + | Address | [address] | | | [place] [address] | + + + | Home Phone [...] Providers + +------+ + | Care Assistant Community Director Name | Role | Phone | [...] | | | [place] | [place] | [address]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 | [address] | Phone: | | | | | ([facility]) | Phone: | [phone] | | | | | Moderate | [phone] | Fax: | | | | | protein-bang | Fax: | [phone] | | | | | julieta | [phone] | | | | | | malnutrition [...] | | | | | ([facility]) | | | +--------+ + + + [...] | | | | DME: Lei | [place] [address] | | | | | | | Phone: | | | | | | | [phone] | | | | | | | Fax: | | | | | | | [phone] | | +--------+--------+ + + + + [...] + + | 12/01/ | Hospital | [facility] | Raymon Daniel, | Impaired mobility | | 2019 - | Encounter | [facility] | [address] | (Primary Dx); Anemia | | | | [address] [place] | [place], [place] | requiring | | 12/09/ | | [place] [address] | [phone] | transfusions; COPD | | 2019 | | [phone] | | with acute | | | | | Sharon Robles MD | exacerbation (HCC); | | | | | [address] | Multifocal | | | | | [place], [place] | pneumonia; | | | | | [id number] | Hypoxemia; | | | | | | 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 (HCC); | | | | | [address] | Moderate | | | | | [place], [place] | protein-calorie | | | | | [id number] | malnutrition (HCC); | | | | [...] | | | | | | lung ([facility]) | +--------+ + + + + Social [...] region, stage 2 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 Discharge Condition: Fair, alert, UNALAKLEET, poor historian Diminished BS throughout, breathing comfortably Heart RRR Abd soft, NT Ext WWP, no edema Follow-up Information Candido Link MD On 12/14/2019. Specialty: Internal Medicine Why: This is your hospital follow up appointment, scheduled for 10:00, Please check in at 9:45. Contact information: [address] [place] [phone] Discharge Medications New Medications Details albuterol [...] by: Sam Valladares MD, 12/10/2019 11:14 AM [facility] documented in this encounter Discharge [...] | | | | | ([facility]) | | | | | | + [...] note might be different from the original. [facility] Hospitalist Progress Note Ángela Crowley is a 89 y.o. 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 Sam Valladares MD 12/09/2019 4:01 PM Merged with [facility] HLeroxana, Sam Galarza MD - 12/08/2019 5:41 PM PST [facility] Hospitalist Progress Note Ángela Crowley is a 89 y.o. 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 Sam Valladares MD 12/08/2019 5:41 PM Merged with [facility] Jose Dalal , TalonD - 12/08/2019 [...] m nosis, COPD (chronic obstructive pulmonary disease) ([facility]), Coronary artery disease, Kidney s tone, MRSA [...] Procedure Component Value Units Date/Time Culture, MRSA [[id number]] Collected: 12/04/19 1324 Order Status: Completed Lab Status: Final result Updated: 12/05/19 0724 Specimen: Tissue from Nares Culture 4+ Staphylococcus aureus,Methicillin resistant (MRSA) Comment: *INFECTION PREVENTION ALERT - MRSA* CONTACT PRECAUTIONS REQUIRED. Culture, Respiratory, Lower, Smear [[id number]] (Susceptibility) Collected: 12/03/19 1527 Order Status: Completed [...] Not Specified Final Respiratory pathogen panel, NAAT [[id number]] (Abnormal) Collected: 12/01/19 1730 Order Status: Completed Lab Status: Final result Updated: 12/01/19 210 Specimen: Body Fluid from Nasopharynx Parainfluenza 1 Not Detected Adenovirus Not Detected Human Metapneumovirus Not Detected Rhinovirus/Enterovirus Detected Parainfluenza 3 Not Detected Culture, Blood [[id number]] Collected: 12/01/19 1234 Order Status: Completed Lab Status: Final result Updated: 12/06/19 1241 Specimen: Peripheral Blood Culture No growth after 5 days incubation. Culture, Blood [[id number]] Collected: 12/01/19 1234 Order Status: Completed Lab Status: Final result Updated: 12/06/19 1241 Specimen: Blood from Line Culture No growth after 5 days incubation. Gram Stain, reflex Sputum Culture [[id number]] Order Status: No result Lab Status: No [...] might be different from the origin al. [facility] Hospitalist Progress Note Ángela Crowley is a 89 y.o. 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 Sam Valladares MD 12/07/2019 5:25 PM Merged with [facility] utumn Sutherland, Ph armD - 12/07/2019 [...] m nosis, COPD (chronic obstructive pulmonary disease) ([facility]), Coronary artery disease, Kidney s tone, MRSA [...] Procedure Component Value Units Date/Time Culture, MRSA [[id number]] Collected: 12/04/19 1324 Order Status: Completed Lab Status: Final result Updated: 12/05/19 0724 Specimen: Tissue from Nares Culture 4+ Staphylococcus aureus,Methicillin resistant (MRSA) Comment: *INFECTION PREVENTION ALERT - MRSA* CONTACT PRECAUTIONS REQUIRED. Culture, Respiratory, Lower, Smear [[id number]] (Susceptibility) Collected: 12/03/19 1527 Order Status: Completed [...] Not Specified Final Respiratory pathogen panel, NAAT [[id number]] (Abnormal) Collected: 12/01/19 1730 Order Status: Completed Lab Status: Final result Updated: 12/01/19 2103 Specimen: Body Fluid from Nasopharynx Parainfluenza 1 Not Detected Adenovirus Not Detected Human Metapneumovirus Not Detected Rhinovirus/Enterovirus Detected Parainfluenza 3 Not Detected Culture, Blood [[id number]] Collected: 12/01/19 1234 Order Status: Completed Lab Status: Final result Updated: 12/06/19 1241 Specimen: Peripheral Blood Culture No growth after 5 days incubation. Culture, Blood [[id number]] Collected: 12/01/19 1234 Order Status: Completed Lab Status: Final result Updated: 12/06/19 1241 Specimen: Blood from Line Culture No growth after 5 days incubation. Gram Stain, reflex Sputum Culture [[id number]] Order Status: No result Lab Status: No result Specimen: Body Fluid from Sputum, Expectorated Culture, Respiratory, Lower, Smear [[id number]] (Susceptibility) Collected: 11/24/19 0014 Order Status: Completed [...] Hector MD - 12/06/2019 2:42 PM PST [facility] PRASHANT PATEL HOSPITALIST PROGRESS NOTE Patient: Ángela Crowley : 1930: Age: 89 y.o. MedRec: [id number] Admission date: 12/01/2019 Hospital day # : [...] above. Exam Gen: chronically ill appearing, very UNALAKLEET, NAD HEENT: MMM, neck supple CV: regular [...] Procedure Component Value Units Date/Time Culture, MRSA [[id number]] Collected: 12/04/19 1324 Order Status: Completed Lab Status: Final result Updated: 12/05/19 0724 Specimen: Tissue from Nares Culture 4+ Staphylococcus aureus,Methicillin resistant (MRSA) Comment: *INFECTION PREVENTION ALERT - MRSA* CONTACT PRECAUTIONS REQUIRED. Culture, Respiratory, Lower, Smear [[id number]] (Susceptibility) Collected: 12/03/19 1527 Order Status: Completed [...] 2L/min Sharon Robles MD 12/06/2019 2:43 PM Merged with [facility] Santiago Duque, PharmD - 12/06/2019 4:21 [...] Procedure Component Value Units Date/Time Culture, MRSA [[id number]] Collected: 12/04/19 1324 Order Status: Completed Lab Status: Final result Updated: 12/05/19 0724 Specimen: Tissue from Nares Culture 4+ Staphylococcus aureus,Methicillin resistant (MRSA) Comment: *INFECTION PREVENTION ALERT - MRSA* CONTACT PRECAUTIONS REQUIRED. Culture, Respiratory, Lower, Smear [[id number]] (Susceptibility) Collected: 12/03/19 1527 Order Status: Completed [...] Not Specified Final Respiratory pathogen panel, NAAT [[id number]] (Abnormal) Collected: 12/01/19 1730 Order Status: Completed Lab Status: Final result Updated: 12/01/19 210 Specimen: Body Fluid from Nasopharynx Parainfluenza 1 Not Detected Adenovirus Not Detected Human Metapneumovirus Not Detected Rhinovirus/Enterovirus Detected Parainfluenza 3 Not Detected Culture, Blood [[id number]] Collected: 12/01/19 1234 Order Status: Completed Lab Status: Preliminary result Updated: 12/04/19 1241 Specimen: Peripheral Blood Culture No growth: Monitored continually by instrument for 5 days Culture, Blood [[id number]] Collected: 12/01/19 1234 Order Status: Completed Lab Status: Preliminary result Updated: 12/04/19 1241 Specimen: Blood from Line Culture No growth: Monitored continually by instrument for 5 days Gram Stain, reflex Sputum Culture [[id number]] Order Status: No result Lab Status: No result Specimen: Body Fluid from Sputum, Expectorated Culture, Respiratory, Lower, Smear [[id number]] (Susceptibility) Collected: 11/24/19 0014 Order Status: Completed [...] Procedure Component Value Units Date/Time Culture, MRSA [[id number]] Collected: 12/04/19 1324 Order Status: Completed Lab Status: Final result Updated: 12/05/19 0724 Specimen: Tissue from Nares Culture 4+ Staphylococcus aureus,Methicillin resistant (MRSA) Comment: *INFECTION PREVENTION ALERT - MRSA* CONTACT PRECAUTIONS REQUIRED. Culture, Respiratory, Lower, Smear [[id number]] (Susceptibility) Collected: 12/03/19 1527 Order Status: Completed [...] Not Specified Final Respiratory pathogen panel, NAAT [[id number]] (Abnormal) Collected: 12/01/19 1730 Order Status: Completed Lab Status: Final result Updated: 12/01/19 2103 Specimen: Body Fluid from Nasopharynx Parainfluenza 1 Not Detected Adenovirus Not Detected Human Metapneumovirus Not Detected Rhinovirus/Enterovirus Detected Parainfluenza 3 Not Detected Culture, Blood [[id number]] Collected: 12/01/19 1234 Order Status: Completed Lab Status: Preliminary result Updated: 12/04/19 1241 Specimen: Peripheral Blood Culture No growth: Monitored continually by instrument for 5 days Culture, Blood [[id number]] Collected: 12/01/19 1234 Order Status: Completed Lab Status: Preliminary result Updated: 12/04/19 1241 Specimen: Blood from Line Culture No growth: Monitored continually by instrument for 5 days Gram Stain, reflex Sputum Culture [[id number]] Order Status: No result Lab Status: No result Specimen: Body Fluid from Sputum, Expectorated Culture, Respiratory, Lower, Smear [[id number]] (Susceptibility) Collected: 11/24/19 0014 Order Status: Completed [...] Hector MD - 12/05/2019 12:13 PM PST [place], [place] HOSPITALIST PROGRESS NOTE Patient: Ángela Crowley : 1930: Age: 89 y.o. MedRec: [id number] Admission date: 12/01/2019 Hospital day # : [...] above. Exam Gen: chronically ill appearing, very UNALAKLEET, NAD HEENT: MMM, neck supple CV: regular [...] was found Confirmed by UMESH JOSEPH, LEONIDAS ([id number]) on 12/05/2019 7:17:50 AM Basic Metabolic Panel [...] AM Result Value Ref Range Product Code W1710G24 UNIT # [id number] UNIT ABO A UNIT RH POS CROSSMATCH INTERP Compatible Unit Status Returned Blood Product ABORh APOS Blood Product Expiration Date and Time Product Blood Type Barcode 6200 Micro results (more choices using dot micro) Microbiology Results (72 hrs) Procedure Component Value Units Date/Time Culture, MRSA [[id number]] Collected: 12/04/19 1324 Order Status: Completed Lab Status: Final result Updated: 12/05/19723 Specimen: Tissue from Nares Culture 4+ Staphylococcus aureus,Methicillin resistant (MRSA) Comment: *INFECTION PREVENTION ALERT - MRSA* CONTACT PRECAUTIONS REQUIRED. Culture, Respiratory, Lower, Smear [[id number]] Collected: 12/03/19 1527 Order Status: Completed Lab [...] 2L/min Sharon Robles MD 12/05/2019 12:13 PM Merged with [facility] Sharon Hector MD - 2:31 PM PST [facility] PRASHANT PATEL HOSPITALIST PROGRESS NOTE Patient: Ángela Crowley : 1930: Age: 89 y.o. MedRec: [id number] Admission date: 12/01/2019 Hospital day # : [...] Aida Mills MD 1.25 mg at 12/03/19 1839 methylPREDNISolone [...] PM Result Value Ref Range Product Code Z6426K38 UNIT # [id number] UNIT ABO A UNIT RH POS CROSSMATCH INTERP Compatible Unit Status Crossmatched Blood Product ABORh APOS Blood Product Expiration Date and Time Product Blood Type Barcode 6200 Red Blood Cells (PRBC) - Crossmatch Collection Time: 12/03/19 10:37 PM Result Value Ref Range Product Code A7983M77 UNIT # [id number] UNIT ABO A UNIT RH POS CROSSMATCH INTERP Compatible Unit Status Issued Blood Product Miguel OCHOA Blood Product Expiration Date and Time 309310322369 Product Blood Type Barcode 6200 Basic Metabolic [...] Procedure Component Value Units Date/Time Culture, MRSA [[id number]] Collected: 12/04/19 1324 Order Status: Sent Lab Status: In process Updated: 12/04/19 1327 Specimen: Tissue from Nares Culture, Respiratory, Lower, Smear [[id number]] Collected: 12/03/19 1527 Order Status: Completed Lab Status: Preliminary result Updated: 12/04/19 0935 Specimen: Body Fluid from Sputum, Expectorated Culture 4+ Staphylococcus aureus Comment: Presumptive identification Identification and susceptibility to follow. Gram Stain Result 3+ White Blood Cells 2+ Gram positive cocci Respiratory pathogen panel, NAAT [[id number]] (Abnormal) Collected: 12/01/19 1730 Order Status: Completed [...] 2L/min Sharon Robles MD 12/04/2019 2:32 PM Merged with [facility] Landon Cooper, TalonD - 12/04/2019 2:14 [...] m nosis, COPD (chronic obstructive pulmonary disease) ([facility]), Coronary artery disease, Kidney s tone, MRSA [...] Procedure Component Value Units Date/Time Culture, MRSA [[id number]] Collected: 12/04/19 1324 Order Status: Sent Lab Status: In process Updated: 12/04/19 1327 Specimen: Tissue from Nares Culture, Respiratory, Lower, Smear [[id number]] Collected: 12/03/19 1527 Order Status: Completed Lab Status: Preliminary result Updated: 12/04/19 0935 Specimen: Body Fluid from Sputum, Expectorated Culture 4+ Staphylococcus aureus Comment: Presumptive identification Identification and susceptibility to follow. Gram Stain Result 3+ White Blood Cells 2+ Gram positive cocci Respiratory pathogen panel, NAAT [[id number]] (Abnormal) Collected: 12/01/19 1730 Order Status: Completed Lab Status: Final result Updated: 12/01/19 210 Specimen: Body Fluid from Nasopharynx Parainfluenza 1 Not Detected Adenovirus Not Detected Human Metapneumovirus Not Detected Rhinovirus/Enterovirus Detected Parainfluenza 3 Not Detected Culture, Blood [[id number]] Collected: 12/01/19 1234 Order Status: Completed Lab Status: Preliminary result Updated: 12/04/19 1241 Specimen: Peripheral Blood Culture No growth: Monitored continually by instrument for 5 days Culture, Blood [[id number]] Collected: 12/01/19 1234 Order Status: Completed Lab Status: Preliminary result Updated: 12/04/19 1241 Specimen: Blood from Line Culture No growth: Monitored continually by instrument for 5 days Gram Stain, reflex Sputum Culture [[id number]] Order Status: No result Lab Status: No result Specimen: Body Fluid from Sputum, Expectorated Culture, Respiratory, Lower, Smear [[id number]] (Susceptibility) Collected: 11/24/19 0014 Order Status: Completed [...] Hector MD - 12/03/2019 4:04 PM PST [place], [place] HOSPITALIST PROGRESS NOTE Patient: Ángela Crowley : 1930: Age: 89 y.o. MedRec: [id number] Admission date: 12/01/2019 Hospital day # : [...] GI recommended no more invasive evaluations given yn álvarez's age and comorbidities. IV iron had [...] Value Units Date/Time Culture, Respiratory, Lower, Smear [[id number]] Collected: 12/03/191526 Order Status: Sent Lab Status: In process Updated: 12/03/191526 Specimen: Body Fluid from Sputum, Expectorated Respiratory pathogen panel, NAAT [[id number]] (Abnormal) Collected: 12/01/19 1730 Order Status: Completed Lab Status: Final result Updated: 12/01/192102 Specimen: Body Fluid from Nasopharynx Parainfluenza 1 Not Detected Adenovirus Not Detected Human Metapneumovirus Not Detected Rhinovirus/Enterovirus Detected Parainfluenza 3 Not Detected Culture, Blood [[id number]] Collected: 12/01/191233 Order Status: Completed Lab Status: Preliminary result Updated: 12/02/1943 Specimen: Peripheral Blood Culture No growth: Monitored continually by instrument for 5 days Culture, Blood [[id number]] Collected: 12/01/19 123 Order Status: Completed Lab [...] 2L/min Sharon Robles MD 12/03/2019 4:04 PM Merged with [facility] Rosio Reece RN - 3:52 PM [...] Value Units Date/Time Respiratory pathogen panel, NAAT [[id number]] (Abnormal) Collected: 12/01/19 1730 Order Status: Completed Lab Status: Final result Updated: 12/01/192102 Specimen: Body Fluid from Nasopharynx Parainfluenza 1 Not Detected Adenovirus Not Detected Human Metapneumovirus Not Detected Rhinovirus/Enterovirus Detected Parainfluenza 3 Not Detected Culture, Respiratory, Lower, Smear [[id number]] Order Status: Sent Lab Status: No result Specimen: Body Fluid from Sputum, Expectorated Culture, MRSA [[id number]] Order Status: Sent Lab Status: No result Specimen: Tissue from Nares Culture, Blood [[id number]] Collected: 12/01/19 1234 Order Status: Completed Lab Status: Preliminary result Updated: 12/02/1943 Specimen: Peripheral Blood Culture No growth: Monitored continually by instrument for 5 days Culture, Blood [[id number]] Collected: 12/01/19 1234 Order Status: Completed Lab Status: Preliminary result Updated: 12/02/19 004 Specimen: Blood from Line Culture No growth: Monitored continually by instrument for 5 days Gram Stain, reflex Sputum Culture [[id number]] Order Status: No result Lab Status: No result Specimen: Body Fluid from Sputum, Expectorated Culture, Respiratory, Lower, Smear [[id number]] (Susceptibility) Collected: 11/24/19 0014 Order Status: Completed [...] MD Aida - 12/02/2019 1:16 PM PST [facility] PRASHANT PATEL HOSPITALIST PROGRESS NOTE Patient: Ángela Crowley : 1930: Age: 89 y.o. MedRec: [id number] Admission date: 12/01/2019 Hospital day # : [...] LOBES, CONSISTENT WITH MULTIFOCAL -son indicates prior TONGUE LINING STITCHER evaluation was unremarkable, I am unable to [...] Value Units Date/Time Respiratory pathogen panel, NAAT [[id number]] (Abnormal) Collected: 12/01/19 1730 Order Status: Completed Lab Status: Final result Updated: 12/01/192102 Specimen: Body Fluid from Nasopharynx Parainfluenza 1 Not Detected Adenovirus Not Detected Human Metapneumovirus Not Detected Rhinovirus/Enterovirus Detected Parainfluenza 3 Not Detected Culture, Blood [[id number]] Collected: 12/01/191233 Order Status: Completed Lab Status: Preliminary result Updated: 12/02/1943 Specimen: Peripheral Blood Culture No growth: Monitored continually by instrument for 5 days Culture, Blood [[id number]] Collected: 12/01/191233 Order Status: Completed Lab Status: [...] Infusions: Aida Mills MD 12/02/2019 1:16 PM Merged with [facility] Autumn Estevez, PharmD - 12/02/2019 12:06 [...] m nosis, COPD (chronic obstructive pulmonary disease) ([facility]), Coronary artery disease, Kidney s tone, MRSA [...] Value Units Date/Time Respiratory pathogen panel, NAAT [[id number]] (Abnormal) Collected: 12/01/19 1730 Order Status: Completed Lab Status: Final result Updated: 12/01/192102 Specimen: Body Fluid from Nasopharynx Parainfluenza 1 Not Detected Adenovirus Not Detected Human Metapneumovirus Not Detected Rhinovirus/Enterovirus Detected Parainfluenza 3 Not Detected Culture, Respiratory, Lower, Smear [[id number]] Order Status: Sent Lab Status: No result Specimen: Body Fluid from Sputum, Expectorated Culture, MRSA [[id number]] Order Status: Sent Lab Status: No result Specimen: Tissue from Nares Culture, Blood [[id number]] Collected: 12/01/19 1234 Order Status: Completed Lab Status: Preliminary result Updated: 12/02/1943 Specimen: Peripheral Blood Culture No growth: Monitored continually by instrument for 5 days Culture, Blood [[id number]] Collected: 12/01/19 1234 Order Status: Completed Lab Status: Preliminary result Updated: 12/02/1943 Specimen: Blood from Line Culture No growth: Monitored continually by instrument for 5 days Gram Stain, reflex Sputum Culture [[id number]] Order Status: No result Lab Status: No result Specimen: Body Fluid from Sputum, Expectorated Culture, Respiratory, Lower, Smear [[id number]] (Susceptibility) Collected: 11/24/19 0014 Order Status: Completed [...] medications discrepancies or medication-related issues: Dosage/Form/Frequency change: BROOMMAKER Medication: Prior to Admission Sig: Correct Dosage/Form: [...] Prior to Admission Sig: Patient taking differently BROOMMAKER as: Brimonidine 0.2% ophth marcelino 1 drop into both eyes twice daily Last filled: 05/24/19 #5 ml Patients son states she still has this at home Budesonide 0.5 mg/2 ml neb marcelino 2 ml via neb 2 times daily 1 via neb four times daily mixe d with duo-neb Best possible BROOMMAKER medication list after pharmacy review: PT REPORTED TAKING NOT TAKING Medication Sig Last Dose Dispense Doc. Provider acetaminophen (TYLENOL) 325 mg tablet Take 2 tablets by mouth every 6 hours as needed for Pain (or fever >= 38.6 C (101.5 F)). Taking 120 tablet Sam Valladares MD albuterol-ipratropium 2.5-0.5 mg/3 mL SOLN Take 3 mLs by nebulization Every 4 hours. [place] [facility] aspirin 81 mg chewable [...] daily (with breakfast & di nner). Taking [facility] cholecalciferol (VITAMIN D-3) 25 [...] by mouth 2 times millie ly. Taking [facility] nitroglycerin (NITROSTAT) 0.4 mg [...] Take 10 mg by mouth Daily. Taking [facility] oxygen Inhale 3 L into the lungs continuous. ALETHEA: 99 months. Taking 1 Container Isabelle Link MD pantoprazole (PROTONIX) 40 mg tablet Take 1 tablet by mouth every morning (before breakfas t). Taking 90 tablet Candido Link MD polyethylene glycol (MIRALAX) packet Take 17 g by mouth Daily as needed for Constipation. Taking [facility] polyvinyl alcohol (LIQUITEARS) 1.4% [...] performed and electronically signed by Alisson Kim, Electronic Heat Seal Operator 2019 10:45 AM Reviewed by Autumn Sutherland, [...] Value Units Date/Time Respiratory pathogen panel, NAAT [[id number]] Order Status: Sent Lab Status: No result Specimen: Body Fluid from Nasopharynx Culture, Respiratory, Lower, Smear [[id number]] Order Status: Sent Lab Status: No result Specimen: Body Fluid from Sputum, Expectorated Culture, MRSA [[id number]] Order Status: Sent Lab Status: No result Specimen: Tissue from Nares Culture, Blood [[id number]] Collected: 12/01/19 1234 Order Status: Sent Lab Status: In process Updated: 12/01/19 1237 Specimen: Peripheral Blood Culture, Blood [[id number]] Collected: 12/01/19 1234 Order Status: Sent Lab Status: In process Updated: 12/01/19 1237 Specimen: Blood from Line Gram Stain, reflex Sputum Culture [[id number]] Order Status: No result Lab Status: No result Specimen: Body Fluid from Sputum, Expectorated Culture, Respiratory, Lower, Smear [[id number]] (Susceptibility) Collected: 11/24/19 0014 Order Status: Completed [...] <=20 ug/mL Not Specified Final Culture, Urine [[id number]] (Susceptibility) Collected: 11/18/19 0634 Order Status: Completed [...] 1 ug/mL Not Specified Final Culture, MRSA [[id number]] Collected: 11/18/19 0441 Order Status: Completed Lab Status: Final result Updated: 11/19/19 0719 Specimen: Tissue from Nares Culture 1+ Staphylococcus aureus,Methicillin resistant (MRSA) Comment: *INFECTION PREVENTION ALERT - MRSA* CONTACT PRECAUTIONS REQUIRED. Influenza A and B RNA, NAAT [[id number]] (Abnormal) Collected: 11/18/19128 Order Status: Completed Lab Status: Final result Updated: 11/18/19 0202 Specimen: Body Fluid from Nasopharynx Influenza A PCR Positive Influenza B PCR Negative Respiratory pathogen panel, NAAT [[id number]] (Normal) Collected: 11/18/19128 Order Status: Completed Lab Status: Final result Updated: 11/18/19 0427 Specimen: Body Fluid from Nasopharynx Parainfluenza 1 Not Detected Adenovirus Not Detected Human Metapneumovirus Not Detected Rhinovirus/Enterovirus Not Detected Parainfluenza 3 Not Detected Culture, Blood [[id number]] Collected: 11/18/19127 Order Status: Completed Lab Status: Final result Updated: 11/23/19 014 Specimen: Peripheral Blood Culture No growth after 5 days incubation. Culture, Blood [[id number]] Collected: 11/18/19127 Order Status: Completed Lab Status: [...] PATEL | | | | | | [id number] | | | | | | | | +--------+ + + + + | 04/11/ | Appointment | Radiology | Shawn Michael | | | 2019 | | | MD Marcelino [address] | | | | | [address] | | | | | | [place] [address] | | | | | | [phone] | | | | | | | | +--------+ + + + + | 04/13/ | Office | Cardiology | Shawn Michael | | 2019 | Visit | | MD Marcelino [address] | | | | | | [address] | | | | | | [place] [address] | | | | | | [phone] | | | | | | | [...] with acute | Ordered: 12/10/2019 | | [facility] | Referral | e | exacerbation (HCC) [...] + | [facility] | [address] | [place] | [phone] | | [facility] | | [address] | | | - LABORATORY | | [...] mL/min/1.73m2 | [facility] | | | [place] | RATE,ESTIMATED | | MEDICAL | | | | mL/min/1.04r8Flux than | | CENTER - | | [...] [address] | [place] | [phone] | | [facility] | | [address] | | | - LABORATORY | | [...] [address] | [place] | [phone] | | [facility] | | [address] | | | - LABORATORY | | [...] 76 | 60 - 106 mg/dL | [facility] | | | | | | [facility] | | | | | | MEDICAL | | | | | | CENTER - | | | | | | LABORATORY | | + + + + + + | BUN | 24 (H) | 9 - 23 mg/dL | [facility] | | | | | | [facility] | | | | | | MEDICAL | | | | | | CENTER - | | | | | | LABORATORY | | + + + + + + | Creatinine | 0.64 | 0.55 - 1.02 | [facility] | | | | | mg/dL | [facility] | | | | | | MEDICAL | | | | | | CENTER - | | | | | | LABORATORY | | + + + + + + | eGFR if not | >60Comment: GLOMERULAR | >=60 | GTE | | | | FILTRATION | mL/min/1.73m2 | [facility] | | | [place] | RATE,ESTIMATED | | MEDICAL | | | | mL/min/1.75d6Bzij than | | CENTER - | | [...] | [address] | [place] | [phone] | | [facility] | | [address] | | | - LABORATORY | | [...] [address] | [place] | [phone] | | [facility] | | [address] | | | - LABORATORY | | [...] [address] | [place] | [phone] | | [facility] | | [address] | | | - LABORATORY | | [...] mL/min/1.73m2 | [facility] | | | [place] | RATE,ESTIMATED | | MEDICAL | | | | mL/min/1.55l2Busa than | | CENTER - | | [...] [address] | [place] | [phone] | | [facility] | | [address] | | | - LABORATORY | | [...] [address] | [place] | [phone] | | [facility] | | [address] | | | - LABORATORY | | [...] + | [facility] | [address] | [place] | [phone] | | [facility] | | [address] | | | - [...] | mL/min/1.73m2 | [facility] | | | [place] | RATE,ESTIMATED | | MEDICAL | | | | mL/min/1.77e7Rbmk than | | CENTER - | | [...] [address] | [place] | [phone] | | [facility] | | [address] | | | - LABORATORY | | [...] - 1.030 | [facility] | | | [place], | | | [facility] | | [...] + | [facility] | [address] | [place] | [phone] | | [facility] | | [address] | | | - LABORATORY | | [...] mL/min/1.73m2 | [facility] | | | [place] | RATE,ESTIMATED | | MEDICAL | | | | mL/min/1.66u2Xfym than | | CENTER - | | [...] [address] | [place] | [phone] | | [facility] | | [address] | | | - LABORATORY | | [...] | | | | | WBCs | [facility] | | | | [...] [address] | [place] | [phone] | | [facility] | | [address] | | | - LABORATORY | | [...] [address] | [place] | [phone] | | [facility] | | [address] | | | - LABORATORY | | [...] | [address] | [place], [place] | [phone] | | [facility] | | [address] | | | - LABORATORY | | | | + + + + + Red Blood Cells (PRBC) - Crossmatch (12/05/2019 5:43 AM PST) + + + + + + | Component | Value | Ref Range | Performed | Pathologist | | | | | At | Signature | + + + + + + | Product | [id number] | | [facility] | | | Code | | | [facility] | | | | | | MEDICAL | | | | | | CENTER - | | | | | | BLOOD BANK | | + + + + + + | UNIT # | [id number] | | [facility] | | | | [...] + + + + | Blood | [id number] | | [facility] | | | Product [...] [facility] | | [address] | | | - BLOOD BANK | [...] [address] | [place] | [phone] | | [facility] | | [address] | | | - LABORATORY | | [...] + | [facility] | [address] | [place] | [phone] | | [facility] | | [address] | | | - LABORATORY | | [...] [facility] | | | [place] | RATE,ESTIMATED | | MEDICAL | | | | mL/min/1.21v3Nyun than | | CENTER - | | [...] 7.6 (L) | 8.7 - 10.4 | [facility] | | | | | mg/dL | [...] [address] | [place] | [phone] | | [facility] | | [address] | | | - LABORATORY | | [...] | | | | LEONIDAS CALVO MD ([id number]) | | | | | | on [...] + | [facility] | [address] | [place] | [phone] | | [facility] | | [address] | | | - LABORATORY | | [...] [address] | [place] | [phone] | | [facility] | | [address] | | | - LABORATORY | | [...] + | [facility] | [address] | [place] | [phone] | | [facility] | | [address] | | | - LABORATORY | | [...] [address] | [place] | [phone] | | [facility] | | [address] | | | - LABORATORY | | [...] [facility] | | | [place] | RATE,ESTIMATED | | MEDICAL | | | | mL/min/1.97y0Rxoq than | | CENTER - | | [...] [address] | [place] | [phone] | | [facility] | | [address] | | | - LABORATORY | | | | + + + + + Red Blood Cells (PRBC) - Crossmatch (12/03/2019 10:37 PM PST) + + + + + + | Component | Value | Ref Range | Performed | Pathologist | | | | | At | Signature | + + + + + + | Product | [id number] | | [facility] | | | Code | | | [facility] | | | | | | MEDICAL | | | | | | CENTER - | | | | | | BLOOD BANK | | + + + + + + | UNIT # | [id number] | | [facility] | | | | [...] + + + + | Blood | [id number] | | [facility] | | | Product [...] [facility] | | [address] | | | - BLOOD BANK | [...] [address] | [place] | [phone] | | [facility] | | [address] | | | - LABORATORY | | [...] [address] | [place] | [phone] | | [facility] | | [address] | | | - LABORATORY | | [...] [address] | [place] | [phone] | | [facility] | | [address] | | | [...] + | [facility] | [address] | [place] | [phone] | | [facility] | | [address] | | | - LABORATORY | | [...] | [address] | [place] | [phone] | | [facility] | | [address] | | | - LABORATORY | | [...] [address] | [place] | [phone] | | [facility] | | [address] | | | - LABORATORY | | [...] + | [facility] | [address] | [place] | [phone] | | [facility] | | [address] | | | - LABORATORY | | [...] mL/min/1.73m2 | [facility] | | | [place] | RATE,ESTIMATED | | MEDICAL | | | | mL/min/1.38m5Wvns than | | CENTER - | | [...] + | [facility] | [address] | [place] | [phone] | | [facility] | | [address] | | | - LABORATORY | | [...] (H)Comment: New | <100 pg/mL | [facility] | | | | method in use [...] + | [facility] | [address] | [place] | [phone] | | [facility] | | [address] | | | - LABORATORY | | [...] + | [facility] | [address] | [place] | [phone] | | [facility] | | [address] | | | - LABORATORY | | [...] | nRBC | | K/uL | [facility] | | | | | | [...] [address] | [place] | [phone] | | [facility] | | [address] | | | - LABORATORY | | [...] (H) | 9 - 23 mg/dL | [place] | | | | | | [facility] | | | | | | MEDICAL | | | | | | CENTER - | | | | | | LABORATORY | | + + + + + + | Creatinine | 0.62 | 0.55 - 1.02 | [place] | | | | | mg/dL | [facility] | | | | | | MEDICAL | | | | | | CENTER - | | | | | | LABORATORY | | + + + + + + | eGFR if not | >60Comment: GLOMERULAR | >=60 | [place] | | | | FILTRATION | mL/min/1.73m2 | [facility] | | | [place] | RATE,ESTIMATED | | MEDICAL | | | | mL/min/1.01g3Oxes than | | CENTER - | | [...] + | [facility] | [address] | [place] | [phone] | | [facility] | | [address] | | | - LABORATORY | | [address] | [place] | [phone] | | [facility] | | [address] | | | - LABORATORY | | [...] [address] | [place] | [phone] | | [facility] | | [address] | | | - LABORATORY | | [...] [address] | [place] | [phone] | | [facility] | | [address] | | | - LABORATORY | | [...] + | [facility] | [address] | [place] | [phone] | | [facility] | | [address] | | | - LABORATORY | | [...] [address] | [place] | [phone] | | [facility] | | [address] | | | - LABORATORY | | [...] | [address] | [place], [place] | | | [facility] | | [address] | | | - BLOOD BANK | [...] + | [facility] | [address] | [place] | [phone] | | [facility] | | [address] | | | - LABORATORY | | [...] [address] | [place] | [phone] | | [facility] | | [address] | | | - LABORATORY | | [...] | | | | | [employer] | | | | | [...] [address] | [place] | [phone] | | [facility] | | [address] | | | - LABORATORY | | [...] (H) | 9 - 23 mg/dL | [facility] | | | | | | [facility] | | | | | | MEDICAL | | | | | | CENTER - | | | | | | LABORATORY | | + + + + + + | Creatinine | 0.70 | 0.55 - 1.02 | [facility] | | | | | mg/dL | [facility] | | | | | | MEDICAL | | | | | | CENTER - | | | | | | LABORATORY | | + + + + + + | eGFR if not | >60Comment: GLOMERULAR | >=60 | [facility] | | | | FILTRATION | mL/min/1.73m2 | [facility] | | | [place] | RATE,ESTIMATED | | MEDICAL | | | | mL/min/1.49b4Aepx than | | CENTER - | | [...] [address] | [place] | [phone] | | [facility] | | [address] | | | - LABORATORY | | [...] [address] | [place] | [phone] | | [facility] | | [address] | | | - LABORATORY | | [...] | | | | LEONIDAS CALVO MD ([id number]) | | | | | | on [...] + | [facility] 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
--- OUTSIDE RECORDS SUMMARY | ~2020-03-14 | XMS | Encounter Summary ---
Demographics + + + | Address | [address] | | | [place] [address] | + + + | Home Phone [...] Providers + +------+ + | Care Mobile Device Developer Name | Role | Phone | [...] [place] | | | | | | [address] | | | | | | [phone] | | | +--------+ + + + [...] | | | | | [place] [address] | | | | | | [phone] | | | | | | | | +--------+ + + + + | 04/13/ | Office | Cardiology | Shawn Michael | | | 2019 | Visit | | MD Marcelino [address] | | | | | [address] [place] | | | | | | [place] [address] | | | | | | [phone] | | | | | | | [...]
--- OUTSIDE RECORDS SUMMARY | ~2020-03-14 | XMS | Encounter Summary ---
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 Contact information: [address] [place] [id number] Condition: stable Diet: general Less than 30 minutes were spent on discharge and coordination of post-hospital care. Electronically signed by: Sharon Robles MD, 08/26/2019 9:56 AM [facility] documented in this enco unter Discharge Instructions [...] | | | | | | type ([facility]) | return to 10mg | | | [...] Robles MD - 08/25/2019 11:42 AM PST [facility] HOSPITALIST PROGRESS NOTE Patient: Ángela Crowley : 1930: Age: 89 y.o. 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 Started on PPI drip here. EGD ([facility]) showed no significan t lesions or [...] 2.5L/min Sharon Robles MD 08/25/2019 11:42 AM [facility] Sharon Hector MD - 4:57 PM PST [facility] [place] HOSPITALIST PROGRESS NOTE Patient: Ángela Crowley : 1930: Age: 89 y.o. 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 Started on PPI drip here. EGD ([facility]) showed no significan t lesions or [...] IVPB 125 mg Intrave nous Daily Sharon Robels MD fluticasone (FLONASE) 50 mcg/nasal spray 2 [...] Clostridioides difficle NAAT reflex to Tox Ag [[id number]] Collected: 08/22/19105 Order Status: Completed Lab Status: Final result Updated: 08/22/19353 Specimen: Stool Narrative: The following orders were created for panel order Clostridioides difficle NAAT reflex to T ox Ag. Procedure Abnormality Status --------- ------ Clostridioides difficile...[[id number]] Final result Please view results for these tests on the individual orders. Clostridioides difficile NAAT Reflex [[id number]] Collected: 08/22/19 010 Order Status: Completed Lab [...] 2.5L/min Sharon Robles MD 08/24/2019 4:58 PM [facility] Sam Ferris MD - 08/23/2019 8:06 PM PST [facility] Hospitalist Progress Note Ángela Crowley is [...] reproducible with palpation, did not have an ME on admission -Held aspirin for black tarry [...] above. Sam Valladares MD 08/23/2019 8:06 PM [facility] Sam Ferris MD - 08/22/2019 7:45 AM PST [facility] Hospitalist Progress Note Ángela Crowley is [...] General: Alert, no distress, thin, frail, appropriate, [place] Cardiovascular: Regular rate and rhythm Respiratory: Diminished [...] pH, Urine 6.0 5.0 - 8.0 Specific [place] 1.029 1.001 - 1.030 Protein, Urine Negative [...] above. Sam Valladares MD 08/22/2019 7:45 AM [facility] Sam Ferris MD - 08/21/2019 2:34 PM PST [facility] Hospitalist Progress Note Ángela Crowley is [...] She would like to return home to [facility] when she is discharged Prophylaxis: SCD SUBJECTIVE: [...] pH, Urine 6.0 5.0 - 8.0 Specific [place] 1.029 1.001 - 1.030 Protein, Urine Negative [...] above. Sam Valladares MD 08/21/2019 2:46 PM [facility] HLeSam schmidt MD - 08/20/2019 4:03 PM PST [facility] Hospitalist Progress Note Ángela Crowley is [...] Crossmatch Result Value Ref Range Product Code O3614H73 UNIT # [id number] UNIT ABO A UNIT RH POS CROSSMATCH INTERP Compatible Unit Status Issued Blood Product ABORh APOS Blood Product Expiration Date and Time [id number] Product Blood Type Barcode 6200 Troponin I [...] inferolateral leads Confirmed by UMESH JOSEPH, LEONIDAS ([id number]) on 08/20/2019 6:47:02 AM Hemoglobin and Hematocrit [...] LVOT Mean Velocity 71.81 cm/s MV Deceleration [place] 489.87 cm/s2 MV Deceleration Time 274.63 msec MV E/A Ratio 0.8 MV Mean Velocity 106.99 cm/s MV Peak A-Wave 168.88 cm/s MV Peak E-Wave 134.53 cm/s AV Deceleration [place] 319.97 cm/s2 AV Deceleration Time 1,088.5 msec [...] above. Sam Valladares MD 08/20/2019 4:04 PM [facility] documented in this encounter Plan of Treatment +--------+ + + + + | Date | Type | Specialty | Care Team | Description | +--------+ + + + + | 03/23/ | Office | Anticoagulation | García Harris, | | | 2019 | Visit | | [address] | | | | | | [place] | | | | | | [address] | | | | | | | | +--------+ + + + + | 04/11/ | Appointment | Radiology | Shawn Michael | | | 2019 | | | MD [address] | | | | | | [address] [place] | | | | | | [place], [place] [address] | | | | | | [phone] | | | | | | | | +--------+ + + + + | 04/13/ | Office | Cardiology | Shawn Michael | | | 2019 | Visit | | MD [address] | | | | | | [address] [place] | | | | | | [place], [place] [address] | | | | | | [phone] | | | | | | | [...] involving | | | | | | cocopah coronary | | | | | | artery of cocopah | | | | | | heart without angina | | | | | | pectoris S/p TAVR | | | | | | (transcatheter | | | | | | aortic valve | | | | | | replacement), | | | | | | bioprosthetic | | | | | | Panlobular emphysema | | | | | | ([facility]) Uses walker | | | | | [...] + +--------+ + + + | *TERMED* [place] UPPER GI | Routin | 08/20/2019 | [...] 18 | 9 - 23 mg/dL | [facility] | | | | | | [facility] | | | | | | MEDICAL | | | | | | CENTER - | | | | | | LABORATORY | | + + + + + + | Creatinine | 0.73 | 0.55 - 1.02 | [facility] | | | | | mg/dL | [facility] | | | | | | MEDICAL | | | | | | CENTER - | | | | | | LABORATORY | | + + + + + + | eGFR if not | >60Comment: GLOMERULAR | >=60 | [facility] | | | | FILTRATION | mL/min/1.73m2 | [facility] | | | [place] | RATE,ESTIMATED | | MEDICAL | | | | mL/min/1.16u8Onae than | | CENTER - | | [...] + | [facility] | [address] | [place] | [phone] | | [facility] | | [address] | | | - LABORATORY | | [...] [address] | [place] | [phone] | | [facility] | | [address] | | | - LABORATORY | | [...] | | mg/dL | [facility] | | | | | | MEDICAL | | | | | | CENTER - | | | | | | LABORATORY | | + + + + + + | eGFR if not | >60Comment: GLOMERULAR | >=60 | [facility] | | | | FILTRATION | mL/min/1.73m2 | [facility] | | | [place] | RATE,ESTIMATED | | MEDICAL | | | | mL/min/1.60e7Unkj than | | CENTER - | | [...] | | mg/dL | [facility] | | | | | | MEDICAL [...] [address] | [place] | [phone] | | [facility] | | [address] | | | - LABORATORY | | [...] [address] | [place] | [phone] | | [facility] | | [address] | | | - LABORATORY | | [...] 11 | 9 - 23 mg/dL | [facility] | | | | | | [facility] | | | | | | MEDICAL | | | | | | CENTER - | | | | | | LABORATORY | | + + + + + + | Creatinine | 0.67 | 0.55 - 1.02 | [facility] | | | | | mg/dL | [facility] | | | | | | MEDICAL | | | | | | CENTER - | | | | | | LABORATORY | | + + + + + + | eGFR if not | >60Comment: GLOMERULAR | >=60 | [facility] | | | | FILTRATION | mL/min/1.73m2 | [facility] | | | [place] | RATE,ESTIMATED | | MEDICAL | | | | mL/min/1.94i8Jdbe than | | CENTER - | | [...] + | [facility] | [address] | [place] | [phone] | | [facility] | | [address] | | | - LABORATORY | | [...] | [address] | [place], [place] | [phone] | | [facility] | | [address] | | | - LABORATORY | | [...] [address] | [place] | [phone] | | [facility] | | [address] | | | - LABORATORY | | [...] mL/min/1.73m2 | [facility] | | | [place] | RATE,ESTIMATED | | MEDICAL | | | | mL/min/1.37q6Zehr than | | CENTER - | | [...] [address] | [place] | [phone] | | [facility] | | [address] | | | - LABORATORY | | [...] [address] | [place] | [phone] | | [facility] | | [...] | [address] | [place] | [phone] | | [facility] | | [address] | | | - LABORATORY | | [...] [address] | [place] | [phone] | | [facility] | | [address] | | | - LABORATORY | | [...] 13 | 9 - 23 mg/dL | [facility] | | | | | | [facility] | | | | | | MEDICAL | | | | | | CENTER - | | | | | | LABORATORY | | + + + + + + | Creatinine | 0.67 | 0.55 - 1.02 | [facility] | | | | | mg/dL | [facility] | | | | | | MEDICAL | | | | | | CENTER - | | | | | | LABORATORY | | + + + + + + | eGFR if not | >60Comment: GLOMERULAR | >=60 | [facility] | | | | FILTRATION | mL/min/1.73m2 | [facility] | | | [place] | RATE,ESTIMATED | | MEDICAL | | | | mL/min/1.95b0Loba than | | CENTER - | | [...] + | [facility] | [address] | [place] | [phone] | | [facility] | | [address] | | | - LABORATORY | | [...] [address] | [place] | [phone] | | [facility] | | [address] | | | - LABORATORY | | [...] - 1.030 | [facility] | | | [place], | | | [facility] | | [...] | [address] | [place], [place] | [phone] | | [facility] | | [address] | | | - LABORATORY | | [...] [address] | [place] | [phone] | | [facility] | | [address] | | | - LABORATORY | | [...] [address] | [place] | [phone] | | [facility] | | [address] | | | - LABORATORY | | [...] + | [facility] | [address] | [place] | [phone] | | [facility] | | [address] | | | - LABORATORY | | [...] mL/min/1.73m2 | [facility] | | | [place] | RATE,ESTIMATED | | MEDICAL | | | | mL/min/1.87v2Pfwe than | | CENTER - | | [...] | [address] | [place], [place] | [phone] | | [facility] | | [address] | | | - LABORATORY | | [...] [address] | [place] | [phone] | | [facility] | | [...] [address] | [place] | [phone] | | [facility] | | [address] | | | - LABORATORY | | [...] | | | | | | n [place] | | | | | + +---------+ [...] | | | | | | n [place] | | | | | + +---------+ [...] + | [facility] | [address] | [place] | [phone] | | [facility] | | [address] | | | - LABORATORY | | [...] [facility] | | | | | | [facility] | | | | | | MEDICAL | | | | | | CENTER - | | | | | | LABORATORY | | + + + + + + | Hemoglobin | 10.3 (L) | 11.5 - 16.0 | [facility] | | | | | g/dL | [facility] | | | | | | [...] [address] | [place] | [phone] | | [facility] | | [address] | | | - LABORATORY | | | | + + + + + EGD (08/20/2019 7:23 AM PST) + + | Specimen | + + | | + + + + ----+ | Narrative | Performed At | + + ----+ | [facility] | [facility] | | [facility]Patient Name: Ángela Crowley | [employer] | | JoanneProcedure Date: 08/20/2019 7:23 AMMRN: [id number] | | | Number: [id number] of : 1930Note Status: | | | [...] | This is likely necessary on a residential basis, to match ongoing | | | chronic bleeding.JOHN BOUCHER MD08/20/2019 7:58:49 AMThis | | | report has been signed electronically.Note Initiated On: 08/20/2019 | | | 7:23 AMNumber of Addenda: 0 | | | - Advance diet as [...] likely necessary on a | | | termite inspector basis, to match ongoing chronic bleeding. | | |JOHN BOUCHER MD | | |08/20/2019 7:58:49 AM | | |This report has been signed electronically. | | |Note Initiated On: 08/20/2019 7:23 AM | | |Number of Addenda: 0 | | | | | + + ----+ + +---------+ [...] | | | | LEONIDAS CALVO MD ([id number]) | | | | | | on [...] | | | | | | [employer] | | | | | [...] [address] | [place] | [phone] | | [facility] | | [address] | | | - LABORATORY | | [...] | | | | | | [facility] | | | | | [...] + | [facility] | [address] | [place] | [phone] | | [facility] | | [address] | | | - LABORATORY | | [...] [address] | [place] | [phone] | | [facility] | | [address] | | | - LABORATORY | | [...] | 0.64 | 0.55 - 1.02 | [facility] | | | | | mg/dL | [facility] | | | | | | MEDICAL | | | | | | CENTER - | | | | | | LABORATORY | | + + + + + + | eGFR if not | >60Comment: GLOMERULAR | >=60 | [facility] | | | | FILTRATION | mL/min/1.73m2 | [facility] | | | [place] | RATE,ESTIMATED | | MEDICAL | | | | mL/min/1.49s4Kqwj than | | CENTER - | | [...] [address] | [place] | [phone] | | [facility] | | [address] | | | - LABORATORY | | [...] [address] | [place] | [phone] | | [facility] | | [address] | | | - LABORATORY | | [...] [address] | [place] | [phone] | | [facility] | | [address] | | | - LABORATORY | | [...] | | | | | | [employer] | | | | | [...] + | [facility] | [address] | [place] | [phone] | | [facility] | | [address] | | | - LABORATORY | | | | + + + + + Red Blood Cells (PRBC) - Crossmatch (08/19/2019 6:15 PM PST) + + + + + + | Component | Value | Ref Range | Performed | Pathologist | | | | | At | Signature | + + + + + + | Product | [id number] | | [facility] | | | Code | | | [facility] | | | | | | MEDICAL | | | | | | CENTER - | | | | | | BLOOD BANK | | + + + + + + | UNIT # | [id number] | | [facility] | | | | [...] + + + + | Blood | [id number] | | [facility] | | | Product [...] | | [facility] | | [address] | | | - BLOOD BANK | [...] | | mg/dL | [facility] | | | | | | MEDICAL [...] | [address] | [place] | [phone] | | [facility] | | [address] | | | - LABORATORY | | [...] [address] | [place] | [phone] | | [facility] | | [address] | | | - LABORATORY | | [...] [address] | [place] | [phone] | | [facility] | | [address] | | | - LABORATORY | | [...] | [address] | [place], [place] | [phone] | | [facility] | | [address] | | | - LABORATORY | | [...] [address] | [place] | [phone] | | [facility] | | [address] | | | - LABORATORY | | [...] | | Screen | | | [facility] | | [...] | | [facility] | | [address] | | | - BLOOD BANK | [...] [address] | [place] | [phone] | | [facility] | | [address] | | | - LABORATORY | | [...] | | | | | | [employer] | | | | | [...] [address] | [place] | [phone] | | [facility] | | [address] | | | - LABORATORY | | [...] mL/min/1.73m2 | [facility] | | | [place] | RATE,ESTIMATED | | MEDICAL | | | | mL/min/1.97i0Crpy than | | CENTER - | | [...] [address] | [place] | [phone] | | [facility] | | [address] | | | - LABORATORY | | [...] + | [facility] | [address] | [place] | [phone] | | [facility] | | [address] | | | - LABORATORY | | [...] | | | | LEONIDAS CALVO MD ([id number]) | | | | | | on [...]
--- OUTSIDE RECORDS SUMMARY | ~2020-03-14 | XMS | Encounter Summary ---
Demographics + + + | Address | [address] | | | [place] [address] | + + + | Home Phone | | + + + | Preferred Language | Unknown | + + + | Marital Status | | + + + | Mandaeism Affiliation | Unknown | + + + | Race | Unknown | + + + | Ethnic Group | Unknown | + + + Author + + + | Author | [facility] | | | and [place] | + + + | Organization | [facility] | | [...] Providers + +------+ + | Care Employee Relations Specialist Name | Role | Phone | [...] [place] | | | | | | [address] | | | | | | [phone] | | | +--------+ + + + [...] | | | | | [place] [address] | | | | | | [phone] | | | | | | | | +--------+ + + + + | 04/13/ | Office | Cardiology | Shawn Michael | | | 2019 | Visit | | MD Marcelino [address] | | | | | | [address] | | | | | | [place] [address] | | | | | | [phone] | | | | | | | [...] Plan + + | Visit Type - DIRECTOR OF ACCOUNTING - REPEAT VISIT | | Discipline - Home Health Aide | + + + + +--------+--------+ + + | Problem | Description | Start | Status | Goals | Interventio | | | | Date | | | ns | + + +--------+--------+ + + | HH Aide Need | DIRECTOR OF ACCOUNTING services | | | 1 goal | [...]
--- OUTSIDE RECORDS SUMMARY | ~2020-03-14 | XMS | Encounter Summary ---
Demographics + + + | Address | [address] | | | [place] [address] | + + + | Home Phone [...] Team Providers + +------+ + | Care Bodybuilder Name | Role | Phone | + [...] + + | 07/08/ | Telephone | [facility] | Nikolay, | Referral | | 2019 | | MEDICINE [address] [place] [address] | MD Candido | | | | | [facility] | [address] [place] [address] | | | | | [place] [address] | [place] [address] | | | | | [phone] | [phone] | | | | | | | [...] | 2019 | Visit | | BACK HAND [address] | | | | | | [place] | | | | | | [address] | | | | | | | | +--------+ + + + + | 04/11/ | Appointment | Radiology | Shawn Michael | | | 2019 | | | MD [address] | | | | | | [address] [place] | | | | | | [place] [address] | | | | | | [phone] | | | | | | | | +--------+ + + + + | 04/13/ | Office | Cardiology | Shawn Michael | | 2019 | Visit | | MD Marcelino [address] | | | | | | [address] [place] | | | | | | [place] [address] | | | | | | [phone] | | | | | | | [...]
--- OUTSIDE RECORDS SUMMARY | ~2020-03-14 | XMS | Encounter Summary ---
Demographics + + + | Address | [address] | | | [place] [address] | + + + | Home Phone [...] Providers + +------+ + | Care Project Design Engineer Name | Role | Phone [...] [place] | | | | | | [address] | | | | | | [phone] | | | +--------+ + + + [...] [place] | | | | | | [address] | | | | | | | | +--------+ + + + + | 04/11/ | Appointment | Radiology | Shawn Michael | | | 2019 | | | MD Marcelino [address] | | | | | | [address] | | | | | | [place] [address] | | | | | | [phone] | | | | | | | | +--------+ + + + + | 04/13/ | Office | Cardiology | Zacharynnamdi Shawn | | | 2019 | Visit | | MD Marcelino [address] | | | | | | [address] [place] | | | | | | [place] [address] | | | | | | [phone] | | | | | | | [...] - Snf | + + + + +--------+--------+-------+ + [...] | | | | n | | Snf, | | | | | scheduled/d | | Physical Therapy, | | | | | ocumented | | Home Health Aide, | | | | | in this | | Booking Officer, | | | | | visit | [...] to | | | | | | [facility] for counseling | | | | | [...]
--- OUTSIDE RECORDS SUMMARY | ~2020-03-14 | XMS | Encounter Summary ---
Demographics + + + | Address | [address] | | | [place] [address] | + + + | Home Phone [...] Team Providers + +------+ + | Care French Lecturer Name | Role | Phone | + [...] + | 03/06/ | Telephone | [facility] | Teddy Ruiz | ER Follow-up | | 2019 | | ORTHOPEDIC SURGERY | MD Jerry [address] | | | | | [address] [facility] | [facility] | | | | | [place] | [place] [address] | | | | | [address] | [phone] | | | | | [phone] | | | +--------+ + + + [...] | | 2019 | Visit | | GASTROENTEROLOGY MANAGER [address] | | | | | | [place] | | | | | | [address] | | | | | | | | +--------+ + + + + | 04/11/ | Appointment | Radiology | Shawn Michael | | 2019 | | | MD [address] | | | | | | [address] [place] | | | | | | [place] [address] | | | | | | [phone] | | | | | | | | +--------+ + + + + | 04/13/ | Office | Cardiology | Shawn Michael | | 2019 | Visit | | MD [address] | | | | | | [address] [place] | | | | | | [place] [address] | | | | | | [phone] | | | | | | | [...]
--- OUTSIDE RECORDS SUMMARY | ~2020-03-14 | XMS | Encounter Summary ---
Demographics + + + | Address | [address] | | | [place] [address] | + + + | Home Phone [...] Providers + +------+ + | Care Medical Terminologist Name | Role | Phone | + [...] [place] | | | | | | [address] | | | | | | [phone] | | | +--------+ + + + [...] [place] | | | | | | [address] | | | | | | | | +--------+ + + + + | 04/11/ | Appointment | Radiology | Shawn Michael | | | 2019 | | | MD Marcelino [address] | | | | | | [address] | | | | | | [place] [address] | | | | | | [phone] | | | | | | | | +--------+ + + + + | 04/13/ | Office | Cardiology | Shawn Michael | | | 2020 | Visit | | MD Marcelino [address] | | | | | | [address] | | | | | | [place] [address] | | | | | | [phone] | | | | | | | [...]
--- OUTSIDE RECORDS SUMMARY | ~2020-03-14 | XMS | Encounter Summary ---
Demographics + + + | Address | [address] | | | [place] [address] | + + + | Home Phone [...] Team Providers + +------+ + | Care Maintenance Technician 2Nd Shift Name | Role | Phone | + [...] [place] | | | | | | [address] | | | | | | [phone] | | | +--------+ + + + [...] [place] | | | | | | [address] | | | | | | | | +--------+ + + + + | 04/11/ | Appointment | Radiology | Shawn Michael | | | 2019 | | | MD Marcelino [address] | | | | | | [address] | | | | | | [place] [address] | | | | | | [phone] | | | | | | | | +--------+ + + + + | 04/13/ | Office | Cardiology | Zacharynnamdi Shawn | | | 2019 | Visit | | MD Marcelino [address] | | | | | | [address] [place] | | | | | | [place] [address] | | | | | | [phone] | | | | | | | [...] | | | in this | | Lot Technician, | | | | | visit | [...] to | | | | | | [facility] for counseling | | | | | [...]
--- OUTSIDE RECORDS SUMMARY | ~2020-03-14 | XMS | Encounter Summary ---
Demographics + + + | Address | [address] | | | [place] [address] | + + + | Home Phone [...] Team Providers + +------+ + | Care Rubber Calender Helper Name | Role | Phone | [...] [facility] [place] | | | | | ([facility]) MD [address] | [place] | | | | | | [place] | [address] Phone: | | | | | | [place], | [phone] | | | | | | [place] | Fax: | | | | | | [address] | [phone] | | | | | | Phone: | | | | | | | [phone] | | | | | | | Fax: | | | | | | | [phone] | | + + + + + + + Encounter Details +--------+---------+ + + + | Date | Type | Department | Care Team | Description | +--------+---------+ + + + | 08/04/ | Office | [facility] | Lina Correa | Patient left without | | 2019 | Visit | PULMONARY [address] | MD Jan [address] | being seen (Primary | | | | Tama Gosper, | [address] [place] | Dx) | | | | [place] [address] | [place] [address] | | | | | [phone] | [phone] | | | | | | | [...] of this encounter Progress Notes Lianet Barrera Spiral Weaver - 08/04/2019 1:15 PM PDTPatient left without [...] | | | | | [place] [address] | | | | | | [phone] | | | | | | | | +--------+ + + + + | 04/13/ | Office | Cardiology | Shawn Michael | | | 2019 | Visit | | MD Marcelino [address] | | | | | | [address] [place] | | | | | | [place] [address] | | | | | | [phone] | | | | | | | [...]
--- OUTSIDE RECORDS SUMMARY | ~2020-03-14 | XMS | Encounter Summary ---
Demographics + + + | Address | [address] | | | [place] [address] | + + + | Home Phone [...] Team Providers + +------+ + | Care Cribber Name | Role | Phone | + [...] | term prescription | | | | [place] [address] | [place] [address] | opiate use | | | | [phone] | [phone] | | | | | | | [...] [place] | | | | | | [address] | | | | | | | | +--------+ + + + + | 04/11/ | Appointment | Radiology | Shawn Michael | | | 2019 | | | MD [address] | | | | | | [address] [place] | | | | | | [place] [address] | | | | | | [phone] | | | | | | | | +--------+ + + + + | 04/13/ | Office | Cardiology | Shawn Michael | | | 2019 | Visit | | MD [address] | | | | | | [address] [place] | | | | | | [place] [address] | | | | | | [phone] | | | | | | | [...]
--- OUTSIDE RECORDS SUMMARY | ~2020-03-14 | XMS | Encounter Summary ---
Demographics + + + | Address | [address] | | | [place] [address] | + + + | Home Phone [...] Team Providers + +------+ + | Care Educational Administration Teacher Name | Role | Phone | [...] [place] | | | | | | [address] | | | | | | [phone] | | | +--------+ + + + [...] | | 2019 | Visit | | CLOTH PAINTER [address] | | | | | | [place] | | | | | | [address] | | | | | | | | +--------+ + + + + | 04/11/ | Appointment | Radiology | Shawn Michael | | | 2019 | | | MD [address] | | | | | | [address] [place] | | | | | | [place] [address] | | | | | | [phone] | | | | | | | | +--------+ + + + + | 04/13/ | Office | Cardiology | Shawn Michael | | | 2019 | Visit | | MD [address] | | | | | | [address] [place] | | | | | | [place] [address] | | | | | | [phone] | | | | | | | [...] Plan + + | Visit Type - PROCESS CHEMIST - REPEAT VISIT | | Discipline - Home Health Aide | + + + + +--------+--------+ + + | Problem | Description | Start | Status | Goals | Interventio | | | | Date | | | ns | + + +--------+--------+ + + | HH Aide Need | PROCESS CHEMIST services | | | 1 goal | 3 goal | | Disciplines: | needed | | Active | linked to | interventio | | [facility], | | 019 | | scheduled/d | [...]
--- OUTSIDE RECORDS SUMMARY | ~2020-03-14 | XMS | Encounter Summary ---
Demographics + + + | Address | [address] | | | [place] [address] | + + + | Home Phone [...] Team Providers + +------+ + | Care Closing Specialist Name | Role | Phone | [...] + + | 08/12/ | [facility] | [facility] | Yana-Lani, | ANASTASIA (generalized | | 2019 | Visit | MEDICINE [address] | MD Candido | anxiety disorder) | | | | [facility] | [address] [place] [address] | (Primary Dx); Skin | | | | [place] [address] | [place] [address] | tag; [facility] | | | | [phone] | [phone] | keratosis | | | | | [...] Surgeon: Edwin Stoddard MD; Location: [facility] PROCEDURE UNIT HYSTERECTOMY NIRMAL AND BSO TONSILLECTOMY AND ADENOIDECTOMY UPPER GASTROINTESTINAL ENDOSCOPY N/A 06/07/2019 Procedure: EGD; Surgeon: Edwin Stoddard MD; Location: [facility] MEDICAL PROCEDURE UNIT CURRENT MEDICATIONS Current [...] 1. Parts of this documentwere created using [employer] speech recognition software. As a resu lt, [...] [place] | | | | | | [address] | | | | | | | | +--------+ + + + + | 04/11/ | Appointment | Radiology | Shawn Michael | | 2019 | | | MD Marcelino [address] | | | | | | [address] | | | | | | [place] [address] | | | | | | [phone] | | | | | | | | +--------+ + + + + | 04/13/ | Office | Cardiology | Shawn Michael | | | 2020 | Visit | | MD Marcelino [address] | | | | | | [address] [place] | | | | | | [place] [address] | | | | | | [phone] | | | | | | | [...]
--- OUTSIDE RECORDS SUMMARY | ~2020-03-14 | XMS | Encounter Summary ---
Demographics + + + | Address | [address] | | | [place] [address] | + + + | Home Phone [...] Team Providers + +------+ + | Care Crystal Syrup Maker Name | Role | Phone | [...] + + | 11/25/ | Telephone | [facility] | Kaylyn Rivas, | TCM - Hosp FU | | 2019 | | MEDICINE [facility] | [place] | | | | | [place] [place] | | | | | | [place] [address] | | | | | | [phone] | | | +--------+ + + + [...] | | 2020 | Visit | | SALES REPRESENTATIVE CHURCH FURNITURE [address] | | | | | | [place] | | | | | | [address] | | | | | | | | +--------+ + + + + | 04/11/ | Appointment | Radiology | Shawn Michael | | | 2019 | | | MD [address] | | | | | | [address] [place] | | | | | | [place] [address] | | | | | | [phone] | | | | | | | | +--------+ + + + + | 04/13/ | Office | Cardiology | Shawn Michael | | 2019 | Visit | | MD [address] | | | | | | [address] [place] | | | | | | [place] [address] | | | | | | [phone] | | | | | | | [...]
--- OUTSIDE RECORDS SUMMARY | ~2020-03-14 | XMS | Encounter Summary ---
Demographics + + + | Address | [address] | | | [place] [address] | + + + | Home Phone [...] Team Providers + +------+ + | Care Geologic Technician Name | Role | Phone | [...] Dx); Long | | | | [place] [address] | [place] [address] | term prescription | | | | [phone] | [phone] | opiate use; Anxiety; | | | | | | Anemia due to other | | | | | | cause, not | | | | | | classified; B12 | | | | | | deficiency; | | | | | | Pulmonary | | | | | | hypertension, mild | | | | | | ([facility]); Julienne garzon | +--------+---------+ + + + [...] uated by a pain specialist in [facility] and they have recommended she continues on h er current regimen. She would rather have her medications refilled in our office and it is quite a trip for her to go to [facility] [place], more than [address] No [...] ASSESSMENT & PLAN 1. Generalized osteoarthritis 2. long term acute care registered nurse prescription opiate use -We will continue with [...] Surgeon: Edwin Stoddard MD; Location: [facility] PROCEDURE UNIT HYSTERECTOMY NIRMAL AND BSO TONSILLECTOMY AND ADENOIDECTOMY UPPER GASTROINTESTINAL ENDOSCOPY N/A 06/07/2019 Procedure: EGD; Surgeon: Edwin Stoddard MD; Location: [facility] MEDICAL PROCEDURE UNIT UPPER GASTROINTESTINAL ENDOSCOPY N/A 08/20/2019 Procedure: EGD; Surgeon: John Grimes MD; Location: [facility] MEDICAL PROCEDURE UNIT CURRENT MEDICATIONS [...] 1. Parts of this documentwere created using [employer] speech recognition software. As a resu lt, [...] | | 2019 | Visit | | PSYCHOLOGY INTERN [address] | | | | | | [place] | | | | | | [address] | | | | | | | | +--------+ + + + + | 04/11/ | Appointment | Radiology | Shawn Michael | | | 2019 | | | MD [address] | | | | | | [address] [place] | | | | | | [place] [address] | | | | | | [phone] | | | | | | | | +--------+ + + + + | 04/13/ | Office | Cardiology | Shawn Michael | | | 2019 | Visit | | MD [address] | | | | | | [address] [place] | | | | | | [place] [address] | | | | | | [phone] | | | | | | | [...] + | [facility] | [address] | [place] | [phone] | | [facility] | | [address] | | | - LABORATORY | | [...] | | | FILTRATION | mL/min/1.73m2 | [facility] | | | [place] | RATE,ESTIMATED | | MEDICAL | | | | mL/min/1.16u4Zpvi than | | CENTER - | | [...] | 8.7 | 8.7 - 10.4 | [facility] | | | | | mg/dL | [facility] | | | | | | MEDICAL | | | | | | CENTER - | | | | | | LABORATORY | | + + + + + + | Albumin | 2.9 (L) | 3.2 - 4.8 g/dL | [facility] | | | | | | [facility] | | | | | [...] [address] | [place] | [phone] | | [facility] | | [address] | | | - LABORATORY | | [...] [address] | [place] | [phone] | | [facility] | | [address] | | | - LABORATORY | | | | + + + + + documented in this encounter Visit Diagnoses + + | Diagnosis | + + | Generalized osteoarthritis - Primary Generalized osteoarthrosis, unspecified site | + + | long term acute care registered nurse prescription opiate use | + + | [...]
--- OUTSIDE RECORDS SUMMARY | ~2020-03-14 | XMS | Encounter Summary ---
Demographics + + + | Address | [address] | | | [place] [address] | + + + | Home Phone [...] Team Providers + +------+ + | Care Courtroom Deputy Name | Role | Phone | + [...] + + | 08/03/ | Office | [facility] | Nikolay, | Acute pain of right | | 2019 | Visit | MEDICINE [address] | MD Candido | shoulder (Primary | | | | Street [place] | [address] [facility] | Dx); Right hip pain; | | | | [place] [address] | [place] [address] | Physical | | | | [phone] | [phone] | deconditioning; Poor | | | | [...] this encounter Progress Notes Mary Alice David, Circulation Tender - 08/03/2019 12:30 PM PDTFormatting of this [...] an appointment with a pain specialist in [facility] on August 13. ASSESSMENT & PLAN 1. Acute pain of right shoulder 2. Right hip pain - * [facility]- AMB Referral; Future -No fracture on x-rays done in the emergency room. 3. Physical deconditioning - * [facility]- AMB Referral; Future 4. Poor balance - * [facility]- AMB Referral; Future REVIEW [...] Aortic stenosis COPD (chronic obstructive pulmonary disease) ([facility]) Coronary artery disease FAMILY HISTORY Family History [...] Surgeon: Edwin Stoddard MD; Location: [facility] PROCEDURE UNIT NIRMAL AND BSO TONSILLECTOMY AND ADENOIDECTOMY UPPER GASTROINTESTINAL ENDOSCOPY N/A 06/07/2019 Procedure: EGD; Surgeon: Edwin Stoddard MD; Location: [facility] MEDICAL PROCEDURE UNIT CURRENT MEDICATIONS Current [...] 1. Parts of this documentwere created using [employer] speech recognition software. As a resu lt, [...] | | 2019 | Visit | | DICER OPERATOR [address] | | | | | | [place] | | | | | | [address] | | | | | | | | +--------+ + + + + | 04/11/ | Appointment | Radiology | Shawn Michael | | | 2019 | | | MD Marcelino [address] | | | | | | [address] | | | | | | [place] [address] | | | | | | [phone] | | | | | | | | +--------+ + + + + | 04/13/ | Office | Cardiology | Shawn Michael | | | 2019 | Visit | | MD Marcelino [address] | | | | | | [address] | | | | | | [place] [address] | | | | | | [phone] | | | | | | | [...]
--- OUTSIDE RECORDS SUMMARY | ~2020-03-14 | XMS | Encounter Summary ---
Demographics + + + | Address | [address] | | | [place] [address] | + + + | Home Phone [...] Team Providers + +------+ + | Care Selector Packer Name | Role | Phone | [...] Visit | [place] [address] | LAST PULLER [address] | | | | | [place] | [place] | | | | | [address] | [address] | | | | | [phone] | | | +--------+ + + + [...] | | 2019 | Visit | | METAL COATER OPERATOR [address] | | | | | | [place] | | | | | | [address] | | | | | | | | +--------+ + + + + | 04/11/ | Appointment | Radiology | Shawn Michael | | | 2019 | | | MD [address] | | | | | | [address] [place] | | | | | | [place] [address] | | | | | | [phone] | | | | | | | | +--------+ + + + + | 04/13/ | Office | Cardiology | Shawn Michael | | | 2019 | Visit | | MD [address] | | | | | | [address] [place] | | | | | | [place] [address] | | | | | | [phone] | | | | | | | [...] hips. | | | | | | LAST PULLER notes ongoing | | | | | [...] | | | | form as needed. LAST PULLER | | | | | | instructed, [...] | Problem: HH PT | | | LAST PULLER instructed pt on | | training | [...] | Problem: HH SHARED | | | LAST PULLER educated pt on | | Prevention | [...]
--- OUTSIDE RECORDS SUMMARY | ~2020-03-14 | XMS | Encounter Summary ---
Demographics + + + | Address | [address] | | | [place] [address] | + + + | Home Phone [...] Team Providers + +------+ + | Care Section Chief Name | Role | Phone | [...] [place] | | | | | | [address] | | | | | | [phone] | | | +--------+ + + + [...] [place] | | | | | | [id number] | | | | | | | | +--------+ + + + + | 04/11/ | Appointment | Radiology | Shawn Michael | | 2019 | | | MD Marcelino [address] | | | | | | [address] | | | | | | [place] [address] | | | | | | [phone] | | | | | | | | +--------+ + + + + | 04/13/ | Office | Cardiology | Julieta Michaelr | | | 2019 | Visit | | MD Marcelino [address] | | | | | | [address] [place] | | | | | | [place] [address] | | | | | | [phone] | | | | | | | [...] Plan + + | Visit Type - HUMAN RESOURCES OFFICE MANAGER - REPEAT VISIT | | Discipline [...] + + | HH Aide Need | HUMAN RESOURCES OFFICE MANAGER services | | | 1 goal [...] | | | | | | | Endodontics Dentist, | | | | | | | [...] | | | pericare: skin/back | | CARE:[id number]} | | | | care: brush/comb hair | | | | | | dressing: | + + +--------+--------+ + documented in this encounter"
--- OUTSIDE RECORDS SUMMARY | ~2020-03-14 | XMS | Encounter Summary ---
Demographics + + + | Address | [address] | | | [place] [address] | + + + | Home Phone [...] Providers + +------+ + | Care Customer Services Supervisor Name | Role | Phone | [...] [place] | | | | | | [address] | | | | | | [phone] | | | +--------+ + + + [...] [place] | | | | | | [id number] | | | | | | | | +--------+ + + + + | 04/11/ | Appointment | Radiology | Shawn Michael | | 2019 | | | MD Marcelino [address] | | | | | | [address] | | | | | | [place] [address] | | | | | | [phone] | | | | | | | | +--------+ + + + + | 04/13/ | Office | Cardiology | Shawn Michael | | | 2019 | Visit | | MD Marcelino [address] | | | | | | [address] [place] | | | | | | [place] [address] | | | | | | [phone] | | | | | | | [...] TRANSFER W/OUT D/C | | Discipline - Detention | + + + + +--------+--------+-------+ + | Problem | Description | Start | Status | Goals | Interventio | | | | Date | | | ns | + + +--------+--------+-------+ + | HH SHARED PAIN | | | | - | 1 problem | | Disciplines: | | 06/13/20 | Active | | | | Detention | | 19 | | | interventio [...] 19 | | | interventio | | Detention | | | | | n | [...] 06/13/20 | Active | | | | Detention | | 19 | | | interventio [...]
--- OUTSIDE RECORDS SUMMARY | ~2020-03-14 | XMS | Encounter Summary ---
Demographics + + + | Address | [address] | | | [place] [address] | + + + | Home Phone [...] Team Providers + +------+ + | Care Ux Interaction Designer Name | Role | Phone | [...] 06/17/ | Home Care | [facility] [place] | Sam Quintanilla, | PT REPEAT VISIT | | 2019 | Visit | [place] [address] | PHARMACY TECHNICIAN PER DIEM [address] | | | | | [place] | [place] | | | | | [address] | [address] | | | | | [phone] | | | +--------+ + + + [...] + + | Pulse | 85 | 06/17/2019 10:26 AM | | | | | PDT | | + +---------+ + + | Temperature | - | - | | + +---------+ + + | Respiratory Rate | - | - | | + +---------+ + + | Oxygen Saturation | 99% | 06/17/2019 10:26 AM | on 5 lit cont. | | | | PDT | | [...] | 2019 | Visit | | ACCOUNTS RECEIVABLE ADMINISTRATOR [address] | | | | | | [place] | | | | | | [address] | | | | | | | | +--------+ + + + + | 04/11/ | Appointment | Radiology | Shawn Michael | | | 2019 | | | MD [address] | | | | | | [address] [place] | | | | | | [place] [address] | | | | | | [phone] | | | | | | | | +--------+ + + + + | 04/13/ | Office | Cardiology | Shawn Michael | | 2019 | Visit | | MD [address] | | | | | | [address] [place] | | | | | | [place] [address] | | | | | | [phone] | | | | | | | [...] 1 goal | | STRENGTH | | 06/15/ | Active | linked to | interventio [...] 1 goal | | TRANSFERS | | 06/15/ | Active | linked to | interventio [...] gait training using | | | | 5x50 feet on even | | LRAD no [...] | | | | | and hips. PHARMACY TECHNICIAN PER DIEM notes | | | | | | ongoing deficits: | | | | | | fatigues easily with | | | | | | gait, poor safety | | | | | | awareness with O2 | | | | | | cannular, , that will | | | | | | continue to be addressed | | | | | | in future visits. | + + +--------+--------+ + | PT therapeutic | Problem: HH PT | | | PHARMACY TECHNICIAN PER DIEM performed | | exercise | IMPAIRED | Comple | | progressive resistance | | Description: | STRENGTHGoal: HH PT | yoel | | exercises in stance: | | Evaluate and | STRENGTH | | | ankle PF/DF, HS curls, | | instruct the patient | | | | hip ad/abd/flexion, | | and/or caregiver | | | | single leg stance and | | and provide home | | | | mini squats. PHARMACY TECHNICIAN PER DIEM | | exercise program to | | | | adjusted difficulty by | | restore maximal | | | | changing position | | functional strength. | | | | relative to gravity [...] | | | | | | comordities. Verbal and | | | | | | tactile cues given for | | | | | | form as needed. | + + +--------+--------+ + | PT transfer | Problem: HH PT | | | PHARMACY TECHNICIAN PER DIEM instructed pt on | | training | [...] | Problem: HH SHARED | | | PHARMACY TECHNICIAN PER DIEM educated pt on | | Prevention | [...]
--- OUTSIDE RECORDS SUMMARY | ~2020-03-14 | XMS | Encounter Summary ---
Demographics + + + | Address | [address] | | | [place] [address] | + + + | Home Phone [...] Team Providers + +------+ + | Care Mirror Specialist Name | Role | Phone | + +------+ + | Candido Link | PCP | | | MD | | | + +------+ + Reason for Visit + + + | Reason | Comments | + + + | New Patient | | + + + | Emphysema | | + + + Evaluate & [...] | Services | Disease / | | Yana-Luis Carlost | MD Jan | | | Required | Pulmonology | 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, | [address]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 | Candido | [facility] | | | | | ([facility]) | MD [address] | [place] | | | | | | [place] | [address] Phone: | | | | | | [place], | [phone] | | | | | | [place] | Fax: | | | | | | [phone] | [phone] | | | | | | Phone: | | | | | | | [phone] | | | | | | | Fax: | | | | | | | [phone] | | + + + + + + + Encounter Details +--------+---------+ + + + | Date | Type | Department | Care Team | Description | +--------+---------+ + + + | 08/05/ | Office | [facility] | Lina Correa | Chronic obstructive | | 2019 | Visit | PULMONARY [address] | MD Jan [address] | pulmonary disease, | | | | [place], | [address] [place] | unspecified COPD | | | | [place] [address] | [place] [address] | type (HCC) (Primary | | | | [phone] | [phone] | Dx); Chronic | | | | [...] + + + | Blood Pressure | 118/68 | 08/05/2019 9:45 AM | | | | | PDT | | + + + + + | Pulse | 108 | 08/05/2019 9:45 AM | | | | | PDT | | + + + + + | Temperature | 36.5 C (97.7 F) | 08/05/2019 9:45 AM | | | | | PDT | | + + + + + | Respiratory Rate | - | - | | + + + + + | Oxygen Saturation | 95% | 08/05/2019 9:45 AM | RA | | | | PDT | | + + + + + | Inhaled Oxygen | - | - | | | Concentration | | | | + + + + + | Weight | 52.1 kg (114 lb 13.8 | 08/05/2019 9:45 AM | | | | oz) | PDT | | + + + + + | Height | 165.1 cm (5' 5") | 08/05/2019 9:45 AM | | | | | PDT | | + + + + + | Body Mass Index | 19.11 | 08/05/2019 9:45 AM | | | | | PDT | | + + + + + documented in this encounter Progress Notes Lina Correa MD - 08/05/2019 9:45 AM PDT Subjective: Ángela Crowley is a 88 y.o. female who presents to the clinic with her son Yadiel and caregiver with a chief complaint of New Patient and Emphysema HPI 88 year old female with past medical history of COPD (reportedly with history of reduced PF Ts), chronic hypoxic respiratory failure on 2-3L, anxiety, GERD, hx of TAVR who presents for evaluation of COPD. Her son Yadiel device most of the history as patient is very hard of hearing. Briefly, she was admitted to hospital from 07/20 to 07/24 for right lower lobe pneumonia due to Pseudomonas and COPD exacerbation. Urinary antigen was positive for strep pneumonia e, however, sputum culture was positive for pansensitive Pseudomonas. Since discharge from hospital, patient has regained some of her strength. She is able t o walk about 1000 feet with a walker without significant shortness of breath. Her son does feel that she is had increased shortness of breath with exertion compared t o her usual baseline. He notes that she often has panic attacks and feels that her oxygen i s not working, when in fact it is working. During these episodes, her saturations are 94 to 95%. - No pedal edema, orthopnea - No fever or chills. -He reports that increased shortness of breath with walking started 3 days ago. -She reports chronic cough that is generally nonproductive. She also has wheezing from raudel e to time that is overall unchanged compared to baseline. - Her son states that she has difficulty keeping her oxygen on at night time due to the oxy gen getting tangled with her hearing aid. -For her regimen, she takes Spiriva once a day, duonebs twice a day and budesonide nebs BID . She is also on prednisone 10 mg daily. -Her son does not feel that she is able to take her Spiriva appropriately. -Patient is a former smoker and quit 20 years ago. She previously smoked 2-3 pack per day s nia she was 15 years old. 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 Allergies Allergen Reactions Percocet [Oxycodone] Unknown Pregabalin Unknown Lyrica Sulfa Antibiotics Unknown Medications: Patient Reported Taking Dosage acetaminophen (TYLENOL) 325 mg tablet (Taking) Take 2 tablets by mouth every 6 hours as n eeded for Pain (or fever >= 38.6 C (101.5 F)). Number of times this order has been changed since signin [facility] albuterol (VENTOLIN HFA) 90 mcg/puff inhaler (Taking) Inhale 2 puffs into the lungs every 4 hours as needed for Wheezing. Number of times this order has been changed since signin [facility] albuterol-ipratropium 2.5-0.5 mg/3 mL SOLN (Taking) Take 3 mLs by nebulization 4 times da johnathon for 90 days. Number of times this order has been changed since signin [facility] albuterol-ipratropium 2.5-0.5 mg/3 mL SOLN (Taking/Discontinued) Take 3 mLs by nebulizati on every 4 hours as needed for Increased Work of Breathing. Number of times this order has been changed since signin [facility] arformoterol (BROVANA) 15 MCG/2ML NEBU (Taking/Discontinued) Take 2 mLs by nebulization 2 times daily. J44.90 Number of times this order has been changed since signin [facility] aspirin 81 mg chewable tablet (Taking) Take 1 tablet by mouth Daily. Number of times this order has been changed since signin [facility] atorvaSTATin (LIPITOR) 20 mg tablet (Taking) Take 20 mg by mouth every morning. Number of times this order has been changed since signin [facility] brimonidine (ALPHAGAN) 0.2% ophthalmic solution (Taking) Place 1 drop into both eyes 2 ti mes daily. Number of times this order has been changed since signin [facility] budesonide (PULMICORT) 0.5 mg/2 mL nebulizer solution (Taking) Take 2 mLs by nebulization 2 times daily. Dx Code J44.90 Number of times this order has been changed since signin [facility] busPIRone (BUSPAR) 10 MG tablet (Taking) Take 1 tablet by mouth Daily. Number of times this order has been changed since signin [facility] calcium carbonate (TUMS EX) 750 MG chewable tablet (Taking) Take 2 tablets by mouth Daily as needed for Heartburn. CALCIUM CARBONATE PO (Taking) Take 1,000 mg by mouth Daily. carvedilol (COREG) 6.25 mg tablet (Taking) Take 1 tablet by mouth 2 times daily (with nikolay akfast & dinner). Number of times this order has been changed since signin [facility] cetirizine (ZYRTEC) 10 mg tablet (Taking) Take 1 tablet by mouth Daily. Number of times this order has been changed since signin [facility] Cholecalciferol (VITAMIN D PO) (Taking) Take 600 Units by mouth every morning. Number of times this order has been changed since signin [facility] ciprofloxacin (CIPRO) 500 mg tablet (Taking) Take 1 tablet by mouth 2 times daily. Number of times this order has been changed since signin [facility] dicyclomine (BENTYL) 10 mg capsule (Taking) Take 10 mg by mouth Daily as needed for GI Up set. Number of times this order has been changed since signin [facility] docusate sodium (COLACE) 250 MG capsule (Taking) Take 250 mg by mouth every morning. Hold for loose stools Number of times this order has been changed since signin [facility] dorzolamide (TRUSOPT) 2% ophthalmic solution (Taking) Place 1 drop into both eyes 2 times daily. Number of times this order has been changed since signin [facility] famotidine (PEPCID) 40 MG tablet (Taking) Take 1 tablet by mouth nightly. Number of times this order has been changed since signin [facility] ferrous sulfate 325 mg tablet (Taking) Take 1 tablet by mouth daily (with breakfast). Number of times this order has been changed since signin [facility] fluticasone (FLONASE) 50 mcg/nasal spray (Taking) 1 spray by Nasal route Daily as needed for Allergies. Number of times this order has been changed since signin [facility] furosemide (LASIX) 20 mg tablet (Taking) Take 1 tablet by mouth Daily. Number of times this order has been changed since signin [facility] HYDROcodone-acetaminophen (NORCO) 7.5-325 mg per tablet (Taking) Take 1 tablet by mouth e very 8 hours as needed for Pain. Number of times this order has been changed since signin [facility] latanoprost (XALATAN) 0.005% ophthalmic solution (Taking) Place 1 drop into both eyes nig htly. Number of times this order has been changed since signin [facility] loperamide (IMODIUM A-D) 2 MG tablet (Taking) Take 2 mg by mouth Twice daily as needed f or Diarrhea. metoprolol succinate (TOPROL-XL) 25 mg 24 hr tablet (Taking) Take 1 tablet by mouth night ly. Number of times this order has been changed since signin [facility] mirtazapine (REMERON) 7.5 MG tablet (Taking) Take 1 tablet by mouth nightly. Number of times this order has been changed since signin [facility] Multiple Vitamins-Minerals (PRESERVISION AREDS 2) CAPS (Taking) Take 1 capsule by mouth 2 times daily. Number of times this order has been changed since signin [facility] nitroglycerin (NITROSTAT) 0.4 mg SL tablet (Taking) Place 0.4 mg under the tongue every 5 minutes as needed for Chest pain. oxygen (Taking) Inhale 3 L into the lungs continuous. ALETHEA: 99 months. pantoprazole (PROTONIX) 40 mg tablet (Taking) Take 1 tablet by mouth every morning (befor e breakfast). Number of times this order has been changed since signin [facility] Polyethylene Glycol 3350 POWD (Taking) Take 17 g by mouth Daily as needed for Constipatio n. polyvinyl alcohol (LIQUITEARS) 1.4% ophthalmic solution (Taking) Place 2 drops into both eyes every morning. Number of times this order has been changed since signin [facility] predniSONE (DELTASONE) 10 mg tablet (Taking) Take 1 tablet by mouth Daily for 90 days. Pa tient to increase to 40mg for 5 days for COPD exacerbation, then return to 10mg daily. Number of times this order has been changed since signin [facility] predniSONE (DELTASONE) 10 mg tablet (Taking/Discontinued) Take 1 tablet by mouth Daily. Number of times this order has been changed since signin [facility] senna (SENNA) 8.6 mg tablet (Taking) Take 1 tablet by mouth Daily as needed for Constipat ion. sodium chloride (OCEAN) 0.65% nasal spray (Taking) 2 sprays by Each Nare route every 2 ho urs as needed for Nasal Dryness. Number of times this order has been changed since signin [facility] tamsulosin (FLOMAX) 0.4 mg CAPS (Taking) Take 1 capsule by mouth nightly. Number of times this order has been changed since signin [facility] tiotropium (SPIRIVA) 18 mcg inhalation capsule (Taking/Discontinued) Inhale 1 capsule int o the lungs Daily. Number of times this order has been changed since signin [facility] UNABLE TO FIND (Taking) Nebulizer Machine with accessories ALETHEA: 99 months. Number of times this order has been changed since signin [facility] Past Medical History She has a past medical history of Aortic stenosis, COPD (chronic obstructive pulmonary dise ase) (), and Coronary artery disease. Past Surgical History She has a past surgical history that includes Aortic valve replacement/repair (2018); Tonsi llectomy and adenoidectomy; tara and bso; Cholecystectomy; Upper gastrointestinal endoscopy ( N/A, 06/07/2019); and Colonoscopy (N/A, 06/11/2019). Social History Tobacco Use Smoking status: Former Smoker Types: Cigarettes Start date: 1944 Last attempt to quit: 1969 Years since quittin.8 Smokeless tobacco: Never Used Substance Use Topics Alcohol use: Never Frequency: Never Drug use: Not on file Review of Systems Constitutional: Negative for chills and fever. HENT: Positive for congestion and hearing loss. Negative for postnasal drip. Eyes: Negative for pain and itching. Respiratory: See HPI Cardiovascular: Positive for leg swelling. Negative for chest pain. Gastrointestinal: Positive for abdominal pain. Negative for constipation, diarrhea, nausea and vomiting. Endocrine: Negative for cold intolerance and heat intolerance. Genitourinary: Positive for difficulty urinating. Negative for dysuria and frequency. Musculoskeletal: Positive for arthralgias and back pain. Allergic/Immunologic: Negative for environmental allergies and food allergies. Neurological: Positive for numbness. Negative for dizziness. Psychiatric/Behavioral: Negative for agitation. The patient is nervous/anxious. Objective: Vitals: 08/05/19 0945 BP: 118/68 Pulse: 108 Temp: 36.5 C (97.7 F) Physical Exam Constitutional: She is oriented to person, place, and time. She appears well-developed and well-nourished. No distress. HENT: Head: Normocephalic and atraumatic. Right Ear: External ear normal. Left Ear: External ear normal. Nose: Nose normal. Mouth/Throat: Oropharynx is clear and moist. No oropharyngeal exudate. Eyes: Pupils are equal, round, and reactive to light. Conjunctivae and EOM are normal. Neck: Neck supple. No tracheal deviation present. No thyromegaly present. Cardiovascular: Normal rate, regular rhythm and normal heart sounds. Exam reveals no gallop and no friction rub. No murmur heard. Pulmonary/Chest: Effort normal. No respiratory distress. She has wheezes (expiratory wheeze at the bases bilaterally R > L). She has no rales. Abdominal: Soft. Bowel sounds are normal. She exhibits no distension. There is no tendernes s. Musculoskeletal: She exhibits edema (1+). She exhibits no deformity. Lymphadenopathy: She has no cervical adenopathy. Neurological: She is alert and oriented to person, place, and time. No cranial nerve defici t. Skin: Skin is warm and dry. Psychiatric: She has a normal mood and affect. Her behavior is normal. Limited echo 07/21/2019: LVEF 65%. Chest x-ray 07/20/2019: Hyperinflation with flattening of the diaphragms. Increased inters titial markings not significantly changed from x-ray 06/04. Assessment & Plan: 1. Chronic obstructive pulmonary disease, unspecified COPD type (HCC) predniSONE (DELTASON E) 10 mg tablet albuterol-ipratropium 2.5-0.5 mg/3 mL SOLN 2. Chronic hypoxemic respiratory failure (HCC) COPD Her son reports that she recently had pulmonary function test back in March approximatel y prior to moving to [place]. Per her son, PFTs were reduced. Discontinue Brovana. Change to DuoNeb scheduled 4 times daily with albuterol as needed . Patient to continue budesonide nebs twice daily. Continue prednisone 10 mg daily. At her son's request, prednisone can be increased to 40 mg daily for maximum of 5 days for an exacerbation. We discussed in detail what an exace rbation entails and her son verbalized understanding. Patient and son understand that they will call with any questions and after an exacerbation. Chronic hypoxic respiratory failure Patient to use 2 L at rest and 3 L with exertion. Maintain sats between 88 to 92%. A mask was prescribed for nighttime use per her son's request. See AVS for patient instructions. Diagnosis and plan including medications and side effects were discussed with the patient a nd information handout was given. Patient voices understanding of the plan and all questions were answered. Return in about 4 months (around 12/04/2019). documented in this encounter Plan of Treatment +--------+ + + + + | Date | Type | Specialty | Care Team | Description | +--------+ + + + + | 03/23/ | Office | Anticoagulation | García Harris, | | 2019 | Visit | | [address] | | | | | | [place] | | | | | | [id number] | | | | | | | | +--------+ + + + + | 04/11/ | Appointment | Radiology | Shawn Michael | | 2019 | | | MD Marcelino [address] | | | | | | [address] [place] | | | | | | [place] [address] | | | | | | [phone] | | | | | | | | +--------+ + + + + | 04/13/ | Office | Cardiology | Shawn Michael | | | 2020 | Visit | | MD Marcelino [address] | | | | | | [address] [place] | | | | | | [place] [address] | | | | | | [phone] | | | | | | | [...]
--- OUTSIDE RECORDS SUMMARY | ~2020-03-14 | XMS | Encounter Summary ---
Demographics + + + | Address | [address] | | | [place] [address] | + + + | Home Phone [...] Team Providers + +------+ + | Care Nephrologist Name | Role | Phone | + [...] + + | 01/02/ | Telephone | [facility] [place] | Lina Correa | Other | | 2020 | | PULMONARY [address] | MD Jan [address] | | | | | [place], | [address] [place] | | | | | [place] [address] | [place] [address] | | | | | [phone] | [phone] | | | | | | | [...] | | 2019 | Visit | | GYPSUM BLOCK SETTER [address] | | | | | | [place] | | | | | | [address] | | | | | | | | +--------+ + + + + | 04/11/ | Appointment | Radiology | Shawn Michael | | | 2019 | | | MD [address] | | | | | | [address] [place] | | | | | | [place] [address] | | | | | | [phone] | | | | | | | | +--------+ + + + + | 04/13/ | Office | Cardiology | Shawn Michael | | | 2019 | Visit | | MD [address] | | | | | | [address] [place] | | | | | | [place] [address] | | | | | | [phone] | | | | | | | [...]
--- OUTSIDE RECORDS SUMMARY | ~2020-03-14 | XMS | Encounter Summary ---
Demographics + + + | Address | [address] | | | [place] [address] | + + + | Home Phone [...] Providers + +------+ + | Care Manager Business Development Hospice Name | Role | Phone | + [...] [place] | | | | | | [address] | | | | | | [phone] | | | +--------+ + + + [...] [place] | | | | | | [address] | | | | | | | | +--------+ + + + + | 04/11/ | Appointment | Radiology | Shanw Michael | | | 2019 | | | MD Marcel[address] | | | | | | [address] | | | | | | [place] [address] | | | | | | [phone] | | | | | | | | +--------+ + + + + | 04/13/ | Office | Cardiology | Shawn Michael | | | 2020 | Visit | | MD Marcel[address] | | | | | | [place] | | | | | | [place] [address] | | | | | | [phone] | | | | | | | [...]
--- OUTSIDE RECORDS SUMMARY | ~2020-03-14 | XMS | Encounter Summary ---
Demographics + + + | Address | [address] | | | [place] [address] | + + + | Home Phone [...] Team Providers + +------+ + | Care Labor Employment Associate Name | Role | Phone | [...] + + | 07/27/ | Telephone | [facility] | Nikolay, | Appointment | | 2019 | | MEDICINE [address] [place] [address] | MD Candido | (cancellation) | | | | [facility] | [address] [place] [address] | | | | | [place] [address] | [place] [address] | | | | | [phone] | [phone] | | | | | | | [...] Visit | | ATHLETIC INSTRUCTOR [address] | | | | | | [place] | | | | | | [address] | | | | | | | | +--------+ + + + + | 04/11/ | Appointment | Radiology | Shawn Michael | | | 2019 | | | MD [address] | | | | | | [address] [place] | | | | | | [place] [address] | | | | | | [phone] | | | | | | | | +--------+ + + + + | 04/13/ | Office | Cardiology | Shawn Michael | | | 2019 | Visit | | MD [address] | | | | | | [address] [place] | | | | | | [place] [address] | | | | | | [phone] | | | | | | | [...]
--- OUTSIDE RECORDS SUMMARY | ~2020-03-14 | XMS | Encounter Summary ---
Demographics + + + | Address | [address] | | | [place] [address] | + + + | Home Phone [...] Team Providers + +------+ + | Care Fur Examiner Name | Role | Phone | [...] | 06/30/ | Home Care | [facility] [place] | Sam Quintanilla, | PT REPEAT VISIT | | 2019 | Visit | [place] [address] | CARTOGRAPHY SUPERVISOR [address] | | | | | [place] | [place] | | | | | [address] | [address] | | | | | [phone] | | | +--------+ + + + [...] + +---------+ + + | Pulse | 89 | 06/30/2019 10:15 AM | | | | | PDT | | + +---------+ + + | Temperature | - | - | | + +---------+ + + | Respiratory Rate | - | - | | + +---------+ + + | Oxygen Saturation | 95% | 06/30/2019 10:15 AM | 2 lit O2 | | | | PDT [...] | | 2019 | Visit | | UI ARCHITECT [address] | | | | | | [place] | | | | | | [address] | | | | | | | | +--------+ + + + + | 04/11/ | Appointment | Radiology | Shawn Michael | | | 2019 | | | MD [address] | | | | | | [address] [place] | | | | | | [place] [address] | | | | | | [phone] | | | | | | | | +--------+ + + + + | 04/13/ | Office | Cardiology | Shawn Michael | | | 2019 | Visit | | MD [address] | | | | | | [address] [place] | | | | | | [place] [address] | | | | | | [phone] | | | | | | | [...] gait training using | | | | 2x150 feet on uneven | | LRAD no weight | | [...] | | | | | and hips. CARTOGRAPHY SUPERVISOR notes | | | | | | ongoing deficits: | | | | | | decreased stride length, | | | | | | energy concervation, | | | | | | that [...] patient | | | | curls, hip ad/abd and | | and/or caregiver | | | | hip flexion. Therapist | | and provide home | | | | adjusted difficulty by | | exercise program to | | | | changing position | | restore maximal | | | | relative to gravity and | | functional strength. | | | | use of therabands/manual [...] needed. | + + +--------+--------+ + | Instruct in | Problem: SHARED | | | CARTOGRAPHY SUPERVISOR educated pt on non | | Exercise/Mobility | PAINGoal: PAIN | Comple | | pharm pain [...] form. | + + +--------+--------+ + | Monitor [...]
--- OUTSIDE RECORDS SUMMARY | ~2020-03-14 | XMS | Encounter Summary ---
Demographics + + + | Address | [address] | | | [place] [address] | + + + | Home Phone [...] Providers + +------+ + | Care Labor And Delivery Registered Nurse Name | Role | Phone | [...] [place] | | | | | | [address] | | | | | | [phone] | | | +--------+ + + + [...] [place] | | | | | | [id number] | | | | | | | | +--------+ + + + + | 04/11/ | Appointment | Radiology | Shawn Michael | | 2019 | | | MD Marcel[address] | | | | | | [address] | | | | | | [place] [address] | | | | | | [phone] | | | | | | | | +--------+ + + + + | 04/13/ | Office | Cardiology | Maxood, Shawn | | | 2019 | Visit | | MD Marcel[address] | | | | | | [address] [place] | | | | | | [place] [address] | | | | | | [phone] | | | | | | | [...] TRANSFER W/OUT D/C | | Discipline - Care Home | + + + + +--------+--------+-------+ [...]
--- OUTSIDE RECORDS SUMMARY | ~2020-03-14 | XMS | Encounter Summary ---
Demographics + + + | Address | [address] | | | [place] [address] | + + + | Home Phone [...] Providers + +------+ + | Care Yarn Spooler Name | Role | Phone | + [...] [place] | | | | | | [address] | | | | | | [phone] | | | +--------+ + + + [...] | | | | | [place] [address] | | | | | | [phone] | | | | | | | | +--------+ + + + + | 04/13/ | Office | Cardiology | Shawn Michael | | | 2019 | Visit | | MD Marcel[address] | | | | | | [place] | | | | | | [place] [address] | | | | | | [phone] | | | | | | | [...] Plan + + | Visit Type - EXPELLER OPERATOR - REPEAT VISIT | | Discipline - Home Health Aide | + + + + +--------+--------+ + + | Problem | Description | Start | Status | Goals | Interventio | | | | Date | | | ns | + + +--------+--------+ + + | HH Aide Need | EXPELLER OPERATOR services | | | 1 goal | 3 goal | | Disciplines: | needed | | Active | linked to | interventio | | Residential, | | 019 | | scheduled/d | [...]
--- OUTSIDE RECORDS SUMMARY | ~2020-03-14 | XMS | Encounter Summary ---
Demographics + + + | Address | [address] | | | [place] [address] | + + + | Home Phone [...] Team Providers + +------+ + | Care Glass Grinder Name | Role | Phone | [...] + + | 10/27/ | Emergency | [facility] | Mir Lux | Diverticulitis of | | 2020 | | [facility] | Kevin Urbano MD | large intestine with | | | | CENTER [address] | [address] | perforation without | | | | [place], [place] | [place], [place] | abscess or bleeding | | | | [address] | [address] | (Primary Dx) | | | | [phone] | | | +--------+ + + + [...] | | 2019 | Visit | | TRENCH DIGGER [address] | | | | | | [place] | | | | | | [address] | | | | | | | | +--------+ + + + + | 04/11/ | Appointment | Radiology | Shawn Michale | | 2019 | | | MD Marcelino [address] | | | | | | [address] | | | | | | [place] [address] | | | | | | [phone] | | | | | | | | +--------+ + + + + | 04/13/ | Office | Cardiology | Shawn Michael | | | 2019 | Visit | | MD Marcelino [address] | | | | | | [address] [place] | | | | | | [place] [address] | | | | | | [phone] | | | | | | | [...] mL/min/1.73m2 | [facility] | | | [facility] | RATE,ESTIMATED | | MEDICAL | | | | mL/min/1.89i8Sgzo than | | CENTER - | | [...] [address] | [place] | [phone] | | [facility] | | [address] | | | - LABORATORY | | [...] use as of December 02, | | [facility] | | | | 2018. Check reference [...] [address] | [place] | [phone] | | [facility] | | [address] | | | - LABORATORY | | [...] + | [facility] | [address] | [place] | [phone] | | [facility] | | [address] | | | - LABORATORY | | [...] [address] | [place] | [phone] | | [facility] | | [address] | | | - LABORATORY | | [...] - 1.030 | [facility] | | | [place], | | | [facility] | | [...] [address] | [place] | [phone] | | [facility] | | [address] | | | - LABORATORY | | [...]
--- OUTSIDE RECORDS SUMMARY | ~2020-03-14 | XMS | Encounter Summary ---
Demographics + + + | Address | [address] | | | [place] [address] | + + + | Home Phone [...] Team Providers + +------+ + | Care Journeyman Pressman Name | Role | Phone | + [...] [place] | | | | | | [address] | | | | | | [phone] | | | +--------+ + + + [...] [place] | | | | | | [place] | | | | | | [address] | | | | | | | | +--------+ + + + + | 04/11/ | Appointment | Radiology | Shawn Michael | | | 2019 | | | MD Marcelino [address] | | | | | | [address] | | | | | | [place] [address] | | | | | | [phone] | | | | | | | | +--------+ + + + + | 04/13/ | Office | Cardiology | Shawn Michael | | | 2019 | Visit | | MD Marcelino [address] | | | | | | [address] | | | | | | [place] [address] | | | | | | [phone] | | | | | | | [...] Plan + + | Visit Type - GLUING MACHINE FEEDER - REPEAT VISIT | | Discipline - Home Health Aide | + + + + +--------+--------+ + + | Problem | Description | Start | Status | Goals | Interventio | | | | Date | | | ns | + + +--------+--------+ + + | HH Aide Need | GLUING MACHINE FEEDER services | | | 1 goal | [...]
--- OUTSIDE RECORDS SUMMARY | ~2020-03-14 | XMS | Encounter Summary ---
Demographics + + + | Address | [address] | | | [place] [address] | + + + | Home Phone [...] Team Providers + +------+ + | Care Pest Control Chemical Technician Name | Role | Phone | [...] [place] | | | | | | [address] | | | | | | [phone] | | | +--------+ + + + [...] [place] | | | | | | [id number] | | | | | | | | +--------+ + + + + | 04/11/ | Appointment | Radiology | Shawn Michael | | 2019 | | | MD Marcelino [address] | | | | | | [address] | | | | | | [place] [address] | | | | | | [phone] | | | | | | | | +--------+ + + + + | 04/13/ | Office | Cardiology | Maxood, Shawn | | | 2019 | Visit | | MD Marcelino [address] | | | | | | [address] [place] | | | | | | [place] [address] | | | | | | [phone] | | | | | | | [...] TRANSFER W/OUT D/C | | Discipline - Residential | + [...]
--- OUTSIDE RECORDS SUMMARY | ~2020-03-14 | XMS | Encounter Summary ---
Demographics + + + | Address | [address] | | | [place] [address] | + + + | Home Phone [...] Providers + +------+ + | Care Gas Burner Operator Name | Role | Phone [...] [place] | | | | | | [address] | | | | | | [phone] | | | +--------+ + + + [...] [place] | | | | | | [id number] | | | | | | | | +--------+ + + + + | 04/11/ | Appointment | Radiology | Sahwn Michael | | 2019 | | | MD Marcelino [address] | | | | | | [address] | | | | | | [place] [address] | | | | | | [phone] | | | | | | | | +--------+ + + + + | 04/13/ | Office | Cardiology | Maxood, Shawn | | | 2019 | Visit | | MD Marcelino [address] | | | | | | [address] [place] | | | | | | [place] [address] | | | | | | [phone] | | | | | | | [...] TRANSFER W/OUT D/C | | Discipline - Snf | + [...] | | | | n | | Snf | | | | [...]
--- OUTSIDE RECORDS SUMMARY | ~2020-03-14 | XMS | Encounter Summary ---
Demographics + + + | Address | [address] | | | [place] [address] | + + + | Home Phone [...] Team Providers + +------+ + | Care Residence Director Name | Role | Phone | [...] + + | 11/25/ | Telephone | [facility] | Nikolay, | Medication Question | | 2019 | | MEDICINE [address] [place] [address] | MD Candido | | | | | [facility] | [address] [place] [address] | | | | | [place] [address] | [place] [address] | | | | | [phone] | [phone] | | | | | | | [...] | | 2019 | Visit | | TECHNICAL SUPERVISOR [address] | | | | | | [place] | | | | | | [address] | | | | | | | | +--------+ + + + + | 04/11/ | Appointment | Radiology | Shawn Michael | | | 2019 | | | MD [address] | | | | | | [address] [place] | | | | | | [place] [address] | | | | | | [phone] | | | | | | | | +--------+ + + + + | 04/13/ | Office | Cardiology | Shawn Michael | | | 2019 | Visit | | MD [address] | | | | | | [address] [place] | | | | | | [place] [address] | | | | | | [phone] | | | | | | | [...]
--- OUTSIDE RECORDS SUMMARY | ~2020-03-14 | XMS | Encounter Summary ---
Demographics + + + | Address | [address] | | | [place] [address] | + + + | Home Phone [...] Team Providers + +------+ + | Care Telegraphic Typewriter Operator Name | Role | Phone | [...] [place] | | | | | | [address] | | | | | | [phone] | | | +--------+ + + + [...] | | | | | [place] [address] | | | | | | [phone] | | | | | | | | +--------+ + + + + | 04/13/ | Office | Cardiology | Shawn Michael | | 2019 | Visit | | MD Marcelino [address] | | | | | | [address] | | | | | | [place] [address] | | | | | | [phone] | | | | | | | [...]
--- OUTSIDE RECORDS SUMMARY | ~2020-03-14 | XMS | Encounter Summary ---
Demographics + + + | Address | [address] | | | [place] [address] | + + + | Home Phone [...] Providers + +------+ + | Care Senior Chemist Name | Role | Phone | + [...] Visit | [place] [address] | PACKAGE CHECKER [address] | | | | | [place] | [place] | | | | | [address] | [address] | | | | | [phone] | | | +--------+ + + + [...] | | 2019 | Visit | | IN CLASS SPECIAL EDUCATION TEACHER [address] | | | | | | [place] | | | | | | [address] | | | | | | | | +--------+ + + + + | 04/11/ | Appointment | Radiology | Shawn Michael | | | 2019 | | | MD [address] | | | | | | [address] [place] | | | | | | [place] [address] | | | | | | [phone] | | | | | | | | +--------+ + + + + | 04/13/ | Office | Cardiology | Shawn Michael | | | 2019 | Visit | | MD [address] | | | | | | [address] [place] | | | | | | [place] [address] | | | | | | [phone] | | | | | | | [...] | Problem: HH PT | | | PACKAGE CHECKER instructed, | | exercise | IMPAIRED | [...] | Problem: HH PT | | | PACKAGE CHECKER instructed pt on | | training | [...] | Problem: HH SHARED | | | PACKAGE CHECKER educated pt on | | Prevention | [...]
--- OUTSIDE RECORDS SUMMARY | ~2020-03-14 | XMS | Encounter Summary ---
Demographics + + + | Address | [address] | | | [place] [address] | + + + | Home Phone [...] Providers + +------+ + | Care Director Geophysical Laboratory Name | Role | Phone | + [...] ST [place] | | | | | ([facility]) | MD [address] | [place] | | | | | | [address] [place] | [address] Phone: | | | | | | [place], | [phone] | | | | | | [place] | Fax: | | | | | | [address] | [phone] | | | | | | Phone: | | | | | | | [phone] | | | | | | | Fax: | | | | | | | [phone] | | + + + + + + + Encounter Details +--------+---------+ + + + | Date | Type | Department | Care Team | Description | +--------+---------+ + + + | 08/05/ | Office | [facility] | Lina Correa | Chronic obstructive | | 2019 | Visit | PULMONARY [address] | MD Jan [address] | pulmonary disease, | | | | [place], | [address] [place] | unspecified COPD | | | | [place] [address] | [place] [address] | type (HCC) (Primary | | | | [phone] | [phone] | Dx); Chronic | | | | [...] old. 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 Allergies Allergen Reactions Percocet [Oxycodone] Unknown Pregabalin Unknown Lyrica Sulfa Antibiotics Unknown Medications: Patient Reported Taking Dosage acetaminophen (TYLENOL) 325 mg tablet (Taking) Take 2 tablets by mouth every 6 hours as n eeded for Pain (or fever >= 38.6 C (101.5 F)). Number of times this order has been changed since signin Order Audit Carmen albuterol (VENTOLIN HFA) 90 mcg/puff inhaler (Taking) Inhale 2 puffs into the lungs every 4 hours as needed for Wheezing. Number of times this order has been changed since signin Order Audit Carmen albuterol-ipratropium 2.5-0.5 mg/3 mL SOLN (Taking) Take 3 mLs by nebulization 4 times da johnathon for 90 days. Number of times this order has been changed since signin Order Audit Carmen albuterol-ipratropium 2.5-0.5 mg/3 mL SOLN (Taking/Discontinued) Take 3 mLs by nebulizati on every 4 hours as needed for Increased Work of Breathing. Number of times this order has been changed since signin Order Audit Carmen arformoterol (BROVANA) 15 MCG/2ML NEBU (Taking/Discontinued) Take 2 mLs by nebulization 2 times daily. J44.90 Number of times this order has been changed since signin Order Audit Carmen aspirin 81 mg chewable tablet (Taking) Take 1 tablet by mouth Daily. Number of times this order has been changed since signin Order Audit Carmen atorvaSTATin (LIPITOR) 20 mg tablet (Taking) Take 20 mg by mouth every morning. Number of times this order has been changed since signin Order Audit Carmen brimonidine (ALPHAGAN) 0.2% ophthalmic solution (Taking) Place 1 drop into both eyes 2 ti mes daily. Number of times this order has been changed since signin Order Audit Carmen budesonide (PULMICORT) 0.5 mg/2 mL nebulizer solution (Taking) Take 2 mLs by nebulization 2 times daily. Dx Code J44.90 Number of times this order has been changed since signin Order Audit Carmen busPIRone (BUSPAR) 10 MG tablet (Taking) Take 1 tablet by mouth Daily. Number of times this order has been changed since signin Order Audit Carmen calcium carbonate (TUMS EX) 750 MG chewable tablet (Taking) Take 2 tablets by mouth Daily as needed for Heartburn. CALCIUM CARBONATE PO (Taking) Take 1,000 mg by mouth Daily. carvedilol (COREG) 6.25 mg tablet (Taking) Take 1 tablet by mouth 2 times daily (with nikolay akfast & dinner). Number of times this order has been changed since signin Order Audit Carmen cetirizine (ZYRTEC) 10 mg tablet (Taking) Take 1 tablet by mouth Daily. Number of times this order has been changed since signin Order Audit Carmen Cholecalciferol (VITAMIN D PO) (Taking) Take 600 Units by mouth every morning. Number of times this order has been changed since signin Order Audit Carmen ciprofloxacin (CIPRO) 500 mg tablet (Taking) Take 1 tablet by mouth 2 times daily. Number of times this order has been changed since signin Order Audit Carmen dicyclomine (BENTYL) 10 mg capsule (Taking) Take 10 mg by mouth Daily as needed for GI Up set. Number of times this order has been changed since signin Order Audit Carmen docusate sodium (COLACE) 250 MG capsule (Taking) Take 250 mg by mouth every morning. Hold for loose stools Number of times this order has been changed since signin Order Audit Carmen dorzolamide (TRUSOPT) 2% ophthalmic solution (Taking) Place 1 drop into both eyes 2 times daily. Number of times this order has been changed since signin Order Audit Carmen famotidine (PEPCID) 40 MG tablet (Taking) Take 1 tablet by mouth nightly. Number of times this order has been changed since signin Order Audit Carmen ferrous sulfate 325 mg tablet (Taking) Take 1 tablet by mouth daily (with breakfast). Number of times this order has been changed since signin Order Audit Carmen fluticasone (FLONASE) 50 mcg/nasal spray (Taking) 1 spray by Nasal route Daily as needed for Allergies. Number of times this order has been changed since signin Order Audit Carmen furosemide (LASIX) 20 mg tablet (Taking) Take 1 tablet by mouth Daily. Number of times this order has been changed since signin Order Audit Carmen HYDROcodone-acetaminophen (NORCO) 7.5-325 mg per tablet (Taking) Take 1 tablet by mouth e very 8 hours as needed for Pain. Number of times this order has been changed since signin Order Audit Carmen latanoprost (XALATAN) 0.005% ophthalmic solution (Taking) Place 1 drop into both eyes nig htly. Number of times this order has been changed since signin Order Audit Carmen loperamide (IMODIUM A-D) 2 MG tablet (Taking) Take 2 mg by mouth Twice daily as needed f or Diarrhea. metoprolol succinate (TOPROL-XL) 25 mg 24 hr tablet (Taking) Take 1 tablet by mouth night ly. Number of times this order has been changed since signin Order Audit Carmen mirtazapine (REMERON) 7.5 MG tablet (Taking) Take 1 tablet by mouth nightly. Number of times this order has been changed since signin Order Audit Carmen Multiple Vitamins-Minerals (PRESERVISION AREDS 2) CAPS (Taking) Take 1 capsule by mouth 2 times daily. Number of times this order has been changed since signin Order Audit Carmen nitroglycerin (NITROSTAT) 0.4 mg SL tablet (Taking) Place 0.4 mg under the tongue every 5 minutes as needed for Chest pain. oxygen (Taking) Inhale 3 L into the lungs continuous. ALETHEA: 99 months. pantoprazole (PROTONIX) 40 mg tablet (Taking) Take 1 tablet by mouth every morning (befor e breakfast). Number of times this order has been changed since signin Order Audit Carmen Polyethylene Glycol 3350 POWD (Taking) Take 17 g by mouth Daily as needed for Constipatio n. polyvinyl alcohol (LIQUITEARS) 1.4% ophthalmic solution (Taking) Place 2 drops into both eyes every morning. Number of times this order has been changed since signin Order Audit Carmen predniSONE (DELTASONE) 10 mg tablet (Taking) Take 1 tablet by mouth Daily for 90 days. Pa tient to increase to 40mg for 5 days for COPD exacerbation, then return to 10mg daily. Number of times this order has been changed since signin Order Audit Carmen predniSONE (DELTASONE) 10 mg tablet (Taking/Discontinued) Take 1 tablet by mouth Daily. Number of times this order has been changed since signin Order Audit Carmen senna (SENNA) 8.6 mg tablet (Taking) Take 1 tablet by mouth Daily as needed for Constipat ion. sodium chloride (OCEAN) 0.65% nasal spray (Taking) 2 sprays by Each Nare route every 2 ho urs as needed for Nasal Dryness. Number of times this order has been changed since signin Order Audit Carmen tamsulosin (FLOMAX) 0.4 mg CAPS (Taking) Take 1 capsule by mouth nightly. Number of times this order has been changed since signin Order Audit Carmen tiotropium (SPIRIVA) 18 mcg inhalation capsule (Taking/Discontinued) Inhale 1 capsule int o the lungs Daily. Number of times this order has been changed since signin Order Audit Carmen UNABLE TO FIND (Taking) Nebulizer Machine with accessories ALETHEA: 99 months. Number of times this order has been changed since signin Order Audit Carmen Past Medical History She has a past [...] March approximatel y prior to moving to [place]. Per her son, PFTs were reduced. Discontinue [...] | | 2019 | Visit | | [address] | | | | | | [place] | | | | | | [id number] | | | | | | | | +--------+ + + + + | 04/11/ | Appointment | Radiology | Shawn Michael | | 2019 | | | MD Marcelino [address] | | | | | | [address] [place] | | | | | | [place] [address] | | | | | | [phone] | | | | | | | | +--------+ + + + + | 04/13/ | Office | Cardiology | Shawn Michael | | | 2020 | Visit | | MD Marcelino [address] | | | | | | [address] [place] | | | | | | [place] [address] | | | | | | [phone] | | | | | | | [...]
--- OUTSIDE RECORDS SUMMARY | ~2020-03-14 | XMS | Encounter Summary ---
Demographics + + + | Address | [address] | | | [place] [address] | + + + | Home Phone [...] Team Providers + +------+ + | Care Commuter Pilot Name | Role | Phone | + [...] + + | 06/28/ | Emergency | [facility] | Raymon Daniel, | Fall from slip, | | 2019 - | | [facility] CTR [facility] | [address] | trip, or stumble, | | | | CENTER [address] | [place] | initial encounter | | 06/29/ | | [place] | [address] | (Primary Dx); Injury | | 2019 | | [address] | | of head, initial | | | | [phone] | Virgilio Menezes MD | encounter; Contusion | | | | | [address] | of left elbow, | | | | | [place] | initial encounter; | | | | | [address] | Effusion, left elbow | | | [...] Care Everywhere.Falls, Preventi ng, Moving Safely Outside (Bangladeshi)Head Injury (Adult) (Bangladeshi)Contusion, Elbow (Bangladeshi)do cumented in this encounter Medications at Time [...] [place] | | | | | | [address] | | | | | | | | +--------+ + + + + | 04/11/ | Appointment | Radiology | Shawn Michael | | | 2019 | | | MD [address] | | | | | | [address] [place] | | | | | | [place], [place] [address] | | | | | | [phone] | | | | | | | | +--------+ + + + + | 04/13/ | Office | Cardiology | Shawn Michael | | | 2019 | Visit | | MD [address] | | | | | | [address] [place] | | | | | | [place] [address] | | | | | | [phone] | | | | | | | | +--------+ + + + + + +------+--------+ + + | Name | Type | Priori | Associated Diagnoses | Date/Time | | | | ty | | | + +------+--------+ + + | ED INFORMATION | MICHAEL | Routin | | 06/28/2019 7:45 PM [...] - 1.030 | [facility] | | | [place], | | | [facility] | | [...] + | [facility] | [address] | [place] | [phone] | | [facility] | | [address] | | | - LABORATORY | | [...] + | [address] | [address] | [place] | [phone] | | [facility] | | [address] | | | - LABORATORY | | [...] | | | | | | [employer] | | | | | [...] + | [facility] | [address] | [place] | [phone] | | [facility] | | [address] | | | - LABORATORY | | [...] mL/min/1.73m2 | [facility] | | | LUXEMBOURGER | RATE,ESTIMATED | | MEDICAL | | | | mL/min/1.06v3Ntrn than | | CENTER - | | [...] [address] | [place] | [phone] | | [facility] | | [address] | | | - LABORATORY | | [...] [address] | [place] | [phone] | | [facility] | | [address] | | | - LABORATORY | | [...] | | | | LEONIDAS CALVO MD ([id number]) | | | | | | on [...]
--- OUTSIDE RECORDS SUMMARY | ~2020-03-14 | XMS | Encounter Summary ---
Demographics + + + | Address | [address] | | | [place] [address] | + + + | Home Phone [...] Team Providers + +------+ + | Care Private Secretary Name | Role | Phone | [...] [place] | | | | | | [address] | | | | | | [phone] | | | +--------+ + + + [...] | | | | | [place] [address] | | | | | | [phone] | | | | | | | | +--------+ + + + + | 04/13/ | Office | Cardiology | Shawn Michael | | 2019 | Visit | | MD Marcelino [address] | | | | | | [address] | | | | | | [place] [address] | | | | | | [phone] | | | | | | | [...]
--- OUTSIDE RECORDS SUMMARY | ~2020-03-14 | XMS | Encounter Summary ---
Demographics + + + | Address | [address] | | | [place] [address] | + + + | Home Phone [...] Team Providers + +------+ + | Care Moshgiach Name | Role | Phone | + [...] [place] | | | | | | [address] | | | | | | [phone] | | | +--------+ + + + [...] [place] | | | | | | [address] | | | | | | | | +--------+ + + + + | 04/11/ | Appointment | Radiology | Shawn Michael | | | 2019 | | | MD [address] | | | | | | [address] [place] | | | | | | [place] [address] | | | | | | [phone] | | | | | | | | +--------+ + + + + | 04/13/ | Office | Cardiology | Shawn Michael | | 2019 | Visit | | MD [address] | | | | | | [address] [place] | | | | | | [place] [address] | | | | | | [phone] | | | | | | | [...]
--- OUTSIDE RECORDS SUMMARY | ~2020-03-14 | XMS | Encounter Summary ---
Demographics + + + | Address | [address] | | | [place] [address] | + + + | Home Phone [...] Team Providers + +------+ + | Care Electron Tube Assembler Name | Role | Phone | + +------+ + | Candido Link | PCP | | | MD | | | + +------+ + Reason for Visit +---------+ + | Reason | Comments | +---------+ + | Results | | +---------+ + Encounter Details +--------+ + + + + | Date | Type | Department | Care Team | Description | +--------+ + + + + | 10/15/ | Telephone | [facility] | Nikolay, | Results | | 2019 | | MEDICINE [address] [place] [address] | MD Candido | | | | | [facility] | [address] [place] [address] | | | | | [place] [address] | [place] [address] | | | | | [phone] | [phone] | | | | | | | [...] | | 2019 | Visit | | DEHAIRING MACHINE TENDER [address] | | | | | | [place] | | | | | | [address] | | | | | | | | +--------+ + + + + | 04/11/ | Appointment | Radiology | Shawn Michael | | 2019 | | | MD [address] | | | | | | [address] [place] | | | | | | [place] [address] | | | | | | [phone] | | | | | | | | +--------+ + + + + | 04/13/ | Office | Cardiology | Shawn Michael | | 2019 | Visit | | MD [address] | | | | | | [address] [place] | | | | | | [place] [address] | | | | | | [phone] | | | | | | | [...]
--- OUTSIDE RECORDS SUMMARY | ~2020-03-14 | XMS | Encounter Summary ---
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) | | | | [facility] | [address] [place] [address] | (Primary Dx); | | | | [place] [address] | [place] [address] | Hypoxemia; Melena; | | | | [phone] | [phone] | Anemia, blood loss | | | [...] COPD (chronic obstructive pulmonary disease) ([facility]) Coronary artery disease FAMILY HISTORY Family [...] Flex Sig; Surgeon: Edwin Stoddard MD; Location: [facility] PROCEDURE UNIT NIRMAL AND BSO TONSILLECTOMY AND ADENOIDECTOMY UPPER GASTROINTESTINAL ENDOSCOPY N/A 06/07/2019 Procedure: EGD; Surgeon: Edwin Stoddard MD; Location: [facility] MEDICAL PROCEDURE UNIT CURRENT MEDICATIONS Current [...] Note: Parts of this documentwere created using LSEO speech recognition software. As a r esult, [...] | | 2019 | Visit | | SULFIDE HEAD OPERATOR[address] | | | | | | [place] | | | | | | [id number] | | | | | | | | +--------+ + + + + | 04/11/ | Appointment | Radiology | Shawn Michael | | | 2020 | | | MD [address]yn[address] | | | | | | [address] [place] | | | | | | [place] [address] | | | | | | [phone] | | | | | | | | +--------+ + + + + | 04/13/ | Office | Cardiology | Shawn Michael | | | 2020 | Visit | | MD [address]yn[address] | | | | | | [address] [place] | | | | | | [place] [address] | | | | | | [phone] | | | | | | | [...] | [address] | [place] | [phone] | | [facility] | | [address] | | | - LABORATORY | | [...]
--- OUTSIDE RECORDS SUMMARY | ~2020-03-14 | XMS | Encounter Summary ---
Demographics + + + | Address | [address] | | | [place] [address] | + + + | Home Phone | | + + + | Preferred Language | Unknown | + + + | Marital Status | | + + + | Baptism Affiliation | Unknown | + + + | Race | Unknown | + + + | Ethnic Group | Unknown | + + + Author + + + | Author | [facility] | | | and [place] | + + + | Organization | [facility] | [...] Team Providers + +------+ + | Care Mass Communications Instructor Name | Role | Phone | [...] N/A | | 2020 | | CENTER [place] [address] | | | | | | [address] | | | | | | [place], [place] | | | | | | [address] | | | | | | [phone] | | | +--------+--------+ + + + [...] [place] | | | | | | [address] | | | | | | | | +--------+ + + + + | 04/11/ | Appointment | Radiology | Shawn Michael | | | 2019 | | | MD [address] | | | | | | [address] [place] | | | | | | [place] [address] | | | | | | [phone] | | | | | | | | +--------+ + + + + | 04/13/ | Office | Cardiology | Shawn Michael | | | 2019 | Visit | | MD [address] | | | | | | [address] [place] | | | | | | [place] [address] | | | | | | [phone] | | | | | | | [...]
--- OUTSIDE RECORDS SUMMARY | ~2020-03-14 | XMS | Encounter Summary ---
Demographics + + + | Address | [address] | | | [place] [address] | + + + | Home Phone [...] Team Providers + +------+ + | Care Door Slinger Name | Role | Phone | + [...] [place] | | | | | | [address] | | | | | | [phone] | | | +--------+ + + + [...] [place] | | | | | | [address] | | | | | | | | +--------+ + + + + | 04/11/ | Appointment | Radiology | Shawn Michael | | | 2019 | | | MD Marcelino [address] | | | | | | [address] | | | | | | [place] [address] | | | | | | [phone] | | | | | | | | +--------+ + + + + | 04/13/ | Office | Cardiology | Shawn Michael | | 2019 | Visit | | MD Marcelino [address] | | | | | | [address] | | | | | | [place] [address] | | | | | | [phone] | | | | | | | [...] + + + + | Rule out tSanley Difficile | 01/31/2020 7:49 PM | 02/01/2020 12:10 PM | | | PDT | PDT | + + + + documented as of this encounter"
--- OUTSIDE RECORDS SUMMARY | ~2020-03-14 | XMS | Encounter Summary ---
Demographics + + + | Address | [address] | | | [place] [address] | + + + | Home Phone | | + + + | Preferred Language | Unknown | + + + | Marital Status | | + + + | Zoroastrian Affiliation | Unknown | + + + | Race | Unknown | + + + | Ethnic Group | Unknown | + + + Author + + + | Author | [facility] | | | and [place] | + + + | Organization | [facility] | | [...] Team Providers + +------+ + | Care Envelope Cutter Name | Role | Phone | [...] | | | | | | | ([facility]) Fall, | | | | | [...] | | | | | | | ([facility]) | | | | | | | Chronic | | | | | | | obstructive | | | | | | | pulmonary | | | | | | | disease, | | | | | | | unspecified | | | | | | | COPD type | | | | | | | ([facility]) | | | | | | | | | | +--------+--------+ + + + + Encounter Details +--------+ + + + + | Date | Type | Department | Care Team | Description | +--------+ + + + + | 02/26/ | Hospital | [facility] | Mir Lux | Fall, initial | | 2019 - | Encounter | [facility] | Kevin Urbano MD | encounter (Primary | | | | [address] [place] | [address] | Dx); Other closed | | 03/02/ | | [place] [address] | [place] | nondisplaced | | 2019 | | [phone] | [address] | fracture of second | | | | | | cervical vertebra, | | | | | Aida Mills MD | initial encounter | | | | | [address] | ([facility]); Colitis; | | | | | [place] [...] original. Physician Discharge Summary Patient ID: Ángela Crowley [id number] 89 y.o. 1930 Admit date: 02/27/2020 Discharge date and time: 03/02/20 Admitting Physician: Aida Mills MD Discharge Physician: Saman Alcocer Admission Diagnoses: Colitis [K52.9] Weakness [R53.1] Iron deficiency anemia due to chronic blood loss [D50.0] Acute systolic congestive heart failure (HCC) [I50.21] Fall, initial encounter [W19.XXXA] Other closed nondisplaced fracture of second cervical vertebra, initial encounter ([facility]) [S1 2.191A] Chronic obstructive pulmonary disease, unspecified COPD type ([facility]) [J44.9] Discharge Diagnoses: Acute on chronic blood [...] needed for Chest pain. aka: NITROSTAT nystatin 180974 UNIT/GM cream aka: MYCOSTATIN ondansetron 4 mg [...] | | | | | | type ([facility]) | | | | | | [...] 0 | 02/24/20 | | | (MYCOSTATIN) 690614 | | | | 20 | | [...] | | 0 | | | | ([facility]) 0.65% nasal | Nare route. [...] own medications X Pharmacy list names: [facility] ([facility]) X [facility] insurance reported information X Outside Information Vaccines up to date? 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/Frequency change: STILL OPERATOR BRANDY Medication: Prior to Admission Sig: Correct Dosage/Form: [...] Prior to Admission Sig: Patient taking differently STILL OPERATOR BRANDY as: Furosemide 20 mg tablet Take 1 tablet by mouth 2 times daily Patient's son states patient t akes 1 tablet daily in the AM Nystatin 922433 unit per gm cream No sig Could [...] her of f of Hydrocodone. Best possible STILL OPERATOR BRANDY medication list after pharmacy review: PT REPORTED [...] daily (with breakfast & di nner). Taking [facility] cetirizine (ZYRTEC) 10 mg [...] by mouth 2 times millie ly. Taking [facility] nitroglycerin (NITROSTAT) 0.[address] 0.4 mg under the tongue every 5 minutes a s needed for Chest pain. Taking Historical ProviderMD nystatin (MYCOSTATIN) 267311 UNIT/GM cream Keyur Carvajal MD ondansetron (ZOFRAN [...] mouth Daily as needed for Constipation. Taking [facility] polyvinyl alcohol (LIQUITEARS) 1.4% [...] performed and electronically signed by Gayatri Aldana, Home Delivery Driver 03/01/2020 4:12 PM Reviewed by Ina Vann, PharmD 03/01/2020 4:46 PM Saman Barragan DO - 03/01/2020 2:00 PM PDTFormatting of this note might be different from the orig inal. [facility] [place] HOSPITALIST PROGRESS NOTE Patient: Ángela Crowley : 1930: Age: 89 y.o. 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 Occasi onal wrong-word or [...] Barragan DO - 02/29/2020 10:32 AM PDT [facility] [place] HOSPITALIST PROGRESS NOTE Patient: Ángela Crowley : 1930: Age: 89 y.o. MedRec: [id number] Admission date: 02/27/2020 Hospital day # : [...] PM Result Value Ref Range Product Code G4920I36 UNIT # [id number] UNIT ABO A UNIT RH POS CROSSMATCH [...] findings. A preliminary report was sent by [facility] with no significan t discrepancy on 02/27/2020 [...] 55). A preliminary report was sent by [facility] on 02/27/2020 1:18 PM . This [...] 55). A preliminary report was sent by [facility] on 02/27/20 20 1:18 PM. 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 Occasi onal wrong-word or sound-alike substitutions may have occurred due to the inherent owen itations of voice recognition software. Please read the chart carefully and recognize, using context, where these substitutions have occurred Tavia Castellanos [facility], Cordwood Cutter - 02/29/2020 9:03 AM PDTFormatting of this [...] ADJUSTMENT PROTOCOL Electronically signed by: Vikki Gonzáles, [place]wood Cutter 02/29/2020 8:58 AM Associated attestation - Deisy Alcocer, PharmD - 02/29/2020 9:06 AM PDTPatient was see n and evaluated by both me and commander internal affairs. Case was reviewed/discussed with commander internal affairs and agree wit h commander internal affairs's findings and plan as documented in the note. Deisy Alcocer PharmD 02/29/2020 9:06 AM Keyur Carvajal MD - 02/28/2020 9:30 PM PDT [facility] Hospitalist Progress Note Ángela [...] findings. A preliminary report was sent by [facility] with no significan t discrepancy on 02/27/2020 [...] 55). A preliminary report was sent by [facility] on 02/27/2020 1:18 PM . This did [...] to patient size; Use of iterative reconstruction technConvertMedia ue. FINDINGS: CT Head: Brain: No intracranial [...] 55). A preliminary report was sent by [facility] on 02/27/20 1:18 PM. This did not [...] above. Keyur Carvajal MD 02/28/2020 9:30 PM [facility] Portions of this chart may have been created with Frazr voice recognition software. Occasi onal wrong-word or [...] might be diffe rent from the original. [facility] [place] PROGRESS NOTE Patient: Ángela Crowley : 1930: Age: 89 y.o. MedRec: [id number] CSN: [id number] Admission date: 02/27/2020 Physician author: Latia Stout [...] 0700 02/28/20 07 - 02/29/20 0700 Shift 9288-7267 24 Hour Total 5035-4166 6811-2533 24 Hour Total INTAKE [address] 290 [...] findings. A preliminary report was sent by [facility] with no significan t discrepancy on 02/27/2020 [...] 55). A preliminary report was sent by [facility] on 02/27/2020 1:18 PM . This did [...] to patient size; Use of iterative reconstruction technConvertMedia ue. FINDINGS: CT Head: Brain: No intracranial [...] 55). A preliminary report was sent by [facility] on 02/27/20 1:18 PM. This did not [...] PM Result Value Ref Range Product Code R6285Y30 UNIT # [id number] UNIT ABO A UNIT RH POS CROSSMATCH INTERP Compatible Unit Status Issued Blood Product Expiration Date and Time 330101310770 Product Blood Type Barcode 6200 Assessement: Pt cleared by neurosurgery Neck splint removed Plan: PT Discharge when taking po and cleared by PT Signed: Latia Stout MD 02/28/2020 7:16 PM [place] PROGRESS NOTE wesi Foley RN - 02/28/2020 6:22 PM PDTBlood transfusion started at 1415 and PIV infiltrated 15 m inutes into transfusion. This RN attempted twice to restart PIV, a 2nd RN attempted and keyla rge RN attempted. CRAWLER TRACTOR OPERATOR able to place PIV at 1600, [...] ADJUSTMENT PROTOCOL Electronically signed by: Mir Garnett, Photoengraving Proofer Apprentice 02/27/2020 7:07 PM [facility] Plan of Treatment +--------+ + + + + | Date | Type | Specialty | Care Team | Description | +--------+ + + + + | 03/23/ | Office | Anticoagulation | García Harris, | | | 2019 | Visit | | TRAVEL PROFESSIONAL [address] | | | | | | [place] | | | | | | [address] | | | | | | | | +--------+ + + + + | 04/11/ | Appointment | Radiology | Shawn Michael | | | 2019 | | | MD [address] | | | | | | [address] [place] | | | | | | [place] [address] | | | | | | [phone] | | | | | | | | +--------+ + + + + | 04/13/ | Office | Cardiology | Shawn Michael | | | 2019 | Visit | | MD [address] | | | | | | [address] [place] | | | | | | [place], [place] [address] | | | | | | [phone] | | | | | | | [...] J?MRN: | | | | | | [id number] | | | [id number] | | | riteri | | | [...] | | | St. | | | [place] | | | y | | | [...] | | | s | | | M[facility]enzie | | | ED | | | Dispar | | | ity | | | Measur | | | e - | | | [place] | | | has | | | [...] | | | s. | | | [facility]enzie | | | | | | Health [...] | | | By: | | | [place] | | | | | | Health [...] | | 19 0 | | | [place] | | | | | | [facility] | | | l | | | Hospit | | | al 1 0 | | | [facility] | | | St[facility] | | | [place] | | | y | | | [...] | | | St. | | | [place] | | | y H. | | [...] | | | St. | | | [place] | | | y H. | | [...] | | e of | | | stebbins | | | | | | palencia [...] | | e of | | | stebbins | | | | | | palencia [...] | | e of | | | stebbins | | | | | | palencia [...] | | | 2019 | | | [place] | | | | | | Genera [...] | | | M.D. | | | Comsec Manager | | | al | | | [...] + | [facility] | [address] | [place] | [phone] | | [facility] | | [address] | | | - LABORATORY | | [...] | nRBC | | K/uL | [facility] | | | | | [...] [address] | [place] | [phone] | | [facility] | | [address] | | | - LABORATORY | | | | + + + + + Red Blood Cells (PRBC) - Crossmatch (03/01/2020 10:49 AM PDT) + + + + + + | Component | Value | Ref Range | Performed | Pathologist | | | | | At | Signature | + + + + + + | Product | [id number] | | [facility] | | | Code | | | [facility] | | | | | | MEDICAL | | | | | | CENTER - | | | | | | BLOOD BANK | | + + + + + + | UNIT # | [id number] | | [facility] | | | | [...] + + + + | Blood | [id number] | | [facility] | | | Product [...] St | [place] | | | [facility] | | [address] | | | - BLOOD BANK | [...] + | [facility] | [address] | [place] | [phone] | | [facility] | | [address] | | | - LABORATORY | | [...] | [address] | [place], [place] | [phone] | | [facility] | | [address] | | | - LABORATORY | | [...] 601 (H)Comment: New | <100 pg/mL | [facility] | | | | method in use [...] + | [facility] | [address] | [place] | [phone] | | [facility] | | [address] | | | - LABORATORY | | [...] | | | | mg/dL | [facility] | | | | | | MEDICAL | | | | | | CENTER - | | | | | | LABORATORY | | + + + + + + | eGFR if not | >60Comment: GLOMERULAR | >=60 | [facility] | | | | FILTRATION | mL/min/1.73m2 | [facility] | | | [place] | RATE,ESTIMATED | | MEDICAL | | | | mL/min/1.98o3Nwwz than | | CENTER - | | [...] 8.3 (L) | 8.7 - 10.4 | [facility] | | | | | mg/dL | [facility] | | | | | | MEDICAL | | | | | | CENTER - | | | | | | LABORATORY | | + + + + + + | BUN/Creatin | 33.3 | | [facility] | | | ine Ratio | | | [facility] | | | | | | [...] [address] | [place] | [phone] | | [facility] | | [address] | | | - LABORATORY | | [...] | [address] | [place], [place] | [phone] | | [facility] | | [address] | | | - LABORATORY | | [...] + | [facility] | [address] | [place] | [phone] | | [facility] | | [address] | | | - LABORATORY | | [...] [address] | [place] | [phone] | | [facility] | | [address] | | | - LABORATORY | | | | + + + + + Red Blood Cells (PRBC) - Crossmatch (02/28/2020 2:14 PM PDT) + + + + + + | Component | Value | Ref Range | Performed | Pathologist | | | | | At | Signature | + + + + + + | Product | [id number] | | [facility] | | | Code | | | [facility] | | | | | | MEDICAL | | | | | | CENTER - | | | | | | BLOOD BANK | | + + + + + + | UNIT # | [id number] | | [facility] | | | | [...] + + + + | Blood | [id number] | | [facility] | | | Product [...] St | [place] | | | [facility] | | [address] | | | - BLOOD BANK | [...] [address] | [place] | [phone] | | [facility] | | [address] | | | - LABORATORY | | [...] + | [facility] | [address] | [place] | [phone] | | [facility] | | [address] | | | - LABORATORY | | [...] + | [facility] | [address] | [place] | [phone] | | [facility] | | [address] | | | - LABORATORY | | [...] mL/min/1.73m2 | [facility] | | | [place] | RATE,ESTIMATED | | MEDICAL | | | | mL/min/1.70x0Vamv than | | CENTER - | | [...] + | [facility] | [address] | [place], [place] | [phone] | | [facility] | | [address] | | | - LABORATORY | | [...] [address] | [place] | [phone] | | [facility] | | [address] | | | - LABORATORY | | [...] [address] | [place] | [phone] | | [facility] | | [address] | | | - LABORATORY | | [...] | [address] | [place], [place] | [phone] | | [facility] | | [address] | | | - LABORATORY | | [...] [address] | [place] | [phone] | | [facility] | | [address] | | | - LABORATORY | | [...] | Critical Result called | g/dL | [facility] | | | | to and read [...] [address] | [place] | [phone] | | [facility] | | [address] | | | - LABORATORY | | [...] - 1.030 | [facility] | | | [place], | | | [facility] | | [...] [address] | [place] | [phone] | | [facility] | | [address] | | | - LABORATORY | | [...] report was sent | | | by [facility] on 02/27/2020 1:18 PM. This did [...] | A preliminary report was sent by [facility] on 02/27/2020 1:18 PM. This did | | not mention the nondistended fractures involving the anterior lamina of C2 | | bilaterally. This information was conveyed to Dr. Lux. | | | | Dictated and Signed by: Patrick Rodriguez MD | | Electronically signed: 02/27/2020 1:40 [...] findings. A preliminary report was sent by [facility] with no | | | significant discrepancy [...] While this could represent changes | | fiiinol-yu-dzfx anastomosis (with blind-ending pouch), the findings doraise [...] While | | this could represent changes mginxnn-rz-zqhg anastomosis (with blind-ending pouch), the | | findings doraise suspicion for abscess in the presacral region and raise suspicionfor | | anastomotic breakdown or leak, in the appropriate clinical setting.Rectal tumor is not | | entirely excluded on the current study.6. Please see above for other incidental and | | chronic findings.A preliminary report was sent by [facility] with no significant | | discrepancyon [...] | |A preliminary report was sent by [facility] with no significant discrepancy | |on 02/27/2020 [...] report was sent | | | by [facility] on 02/27/2020 1:18 PM. This did [...] along the anterior lamina of | | J4glyjyfwabwk (series 5 image 55). Extensive spondylosis is [...] along the anterior lamina of | | M2zxjwhtzwgmq (series 5 image 55).A preliminary report was sent by [facility] on | | 02/27/2020 1:18 PM. This didnot mention the nondistended fractures involving the | | anterior lamina of I0ykejvtcjxlf. This information was conveyed to Dr. Lux.Dictated [...] | |A preliminary report was sent by [facility] on 02/27/2020 1:18 PM. This did | [...] [address] | [place] | [phone] | | [facility] | | [address] | | | - LABORATORY | | [...] + | [facility] | [address] | [place] | [phone] | | [facility] | | [address] | | | - LABORATORY | | [...] | | | | | | [facility] | | | | | [...] [address] | [place] | [phone] | | [facility] | | [address] | | | - LABORATORY | | [...] | | | | | | [employer] | | | | | [...] + | [facility] | [address] | [place], [place] | [phone] | | [facility] | | [address] | | | - LABORATORY | | [...] [address] | [place] | [phone] | | [facility] | | [address] | | | - LABORATORY | | [...] in | 12 - 53 U/L | [facility] | | | | use as of December 02 | | [facility] | | | | 2018. Check [...] [address] | [place] | [phone] | | [facility] | | [address] | | | - LABORATORY | | [...] | mL/min/1.73m2 | [facility] | | | [place] | RATE,ESTIMATED | | MEDICAL | | | | mL/min/1.61h3Ibye than | | CENTER - | | [...] + | [facility] | [address] | [place] | [phone] | | [facility] | | [address] | | | - LABORATORY | | [...] [address] | [place] | [phone] | | [facility] | | [address] | | | - LABORATORY | | [...] [address] | [place] | [phone] | | [facility] | | [address] | | | - LABORATORY | | [...] [address] | [place] | [phone] | | [facility] | | [address] | | | - [...] [address] | [place] | [phone] | | [facility] | | [address] | | | - LABORATORY | | [...] method in use as of | | [facility] | | | | December 02, [...] ST. | [address] | [place], [place] | [phone] | | [facility] | | [address] | | | - LABORATORY | | [...] St | [place] | | | [facility] | | [address] | | | - BLOOD BANK | [...] + | [facility] | [address] | [place] | [phone] | | [facility] | | [address] | | | - LABORATORY | | [...] + + | Coronary artery disease involving stebbins coronary artery of stebbins heart without | | angina pectoris | [...]
--- OUTSIDE RECORDS SUMMARY | ~2020-03-14 | XMS | Encounter Summary ---
Demographics + + + | Address | [address] | | | [place] [address] | + + + | Home Phone [...] Team Providers + +------+ + | Care Filling Hauler Weaving Name | Role | Phone | + [...] Visit | [place] [address] | WEB WORKER [address] | | | | | [place] | [place] | | | | | [address] | [address] | | | | | [phone] | | | +--------+ + + + [...] | | 2019 | Visit | | PLASTICS FABRICATION SUPERVISOR [address] | | | | | | [place] | | | | | | [address] | | | | | | | | +--------+ + + + + | 04/11/ | Appointment | Radiology | Shawn Michael | | | 2019 | | | MD [address] | | | | | | [address] [place] | | | | | | [place] [address] | | | | | | [phone] | | | | | | | | +--------+ + + + + | 04/13/ | Office | Cardiology | Shawn Michael | | | 2019 | Visit | | MD [address] | | | | | | [address] [place] | | | | | | [place] [address] | | | | | | [phone] | | | | | | | [...]
--- OUTSIDE RECORDS SUMMARY | ~2020-03-14 | XMS | Encounter Summary ---
Demographics + + + | Address | [address] | | | [place] [address] | + + + | Home Phone [...] Providers + +------+ + | Care Senior Report Developer Name | Role | Phone | [...] | | | | [place] | | | | | | [address] | | | | | | [phone] | | | +--------+ + + + [...] | | 2019 | Visit | | TALENT DEVELOPMENT DIRECTOR [address] | | | | | | [place] | | | | | | [address] | | | | | | | | +--------+ + + + + | 04/11/ | Appointment | Radiology | Shawn Michael | | | 2019 | | | MD Mynor Benson | | | | | | [address] [place] | | | | | | [place] [address] | | | | | | [phone] | | | | | | | | +--------+ + + + + | 04/13/ | Office | Cardiology | Shawn Michael | | | 2019 | Visit | | MD [address]yn[address] | | | | | | [address] [place] | | | | | | [place], [place] [address] | | | | | | [phone] | | | | | | | [...]
--- OUTSIDE RECORDS SUMMARY | ~2020-03-14 | XMS | Encounter Summary ---
Demographics + + + | Address | [address] | | | [place] [address] | + + + | Home Phone [...] Providers + +------+ + | Care Sr. Operations Manager Name | Role | Phone | [...] [place] | | | | | | [address] | | | | | | [phone] | | | +--------+ + + + [...] | 2019 | Visit | | TALENT SCOUT [address] | | | | | | [place] | | | | | | [address] | | | | | | | | +--------+ + + + + | 04/11/ | Appointment | Radiology | Shawn Michael | | 2019 | | | MD Marcelino [address] | | | | | | [address] | | | | | | [place] [address] | | | | | | [phone] | | | | | | | | +--------+ + + + + | 04/13/ | Office | Cardiology | Shawn Michael | | | 2020 | Visit | | MD Marcelino [address] | | | | | | [address] [place] | | | | | | [place] [address] | | | | | | [phone] | | | | | | | [...] START OF CARE | | Discipline - Long-Term | + [...] 2019 | | | interventio | | Long-Term | | | | | ns | [...] | Long-Term | | | | | ns | [...] | interventio | | Long-Term | | 2019 | | scheduled/d | [...] | | | | ocumented | | Umbrella Frame Maker, Physical | | | | | in this | | Soil Fertility Extension Specialist | | | | | visit | + + +--------+--------+ + + | Heart Failure/CHF | | | | - | 2 problem | | Disciplines: | | 08/28/ | Active | | | | Long-Term | | 2018 | | | interventio [...] | | | | n | | Long-Term, | | | | | scheduled/d | | Physical Therapy, | | | | | ocumented | | Occupational | | | | | in this | | Therapy, Case | | | | | visit | | Umbrella Frame Maker, Physical | | | | | | | Soil Fertility Extension Specialist | | | | | | [...]
--- OUTSIDE RECORDS SUMMARY | ~2020-03-14 | XMS | Encounter Summary ---
Demographics + + + | Address | [address] | | | [place] [address] | + + + | Home Phone [...] Team Providers + +------+ + | Care Straddle Bug Operator Name | Role | Phone | [...] Visit | [place] [address] | STAKEHOLDER MANAGER [address] | | | | | [place] | [place] | | | | | [address] | [address] | | | | | [phone] | | | +--------+ + + + [...] | | 2019 | Visit | | PAD MACHINE OFFBEARER [address] | | | | | | [place] | | | | | | [address] | | | | | | | | +--------+ + + + + | 04/11/ | Appointment | Radiology | Shawn Michael | | | 2019 | | | MD [address] | | | | | | [address] [place] | | | | | | [place] [address] | | | | | | [phone] | | | | | | | | +--------+ + + + + | 04/13/ | Office | Cardiology | Shawn Michael | | | 2019 | Visit | | MD [address] | | | | | | [address] [place] | | | | | | [place] [address] | | | | | | [phone] | | | | | | | [...] | | | | | and hips. STAKEHOLDER MANAGER notes | | | | | [...] in | Problem: SHARED | | | STAKEHOLDER MANAGER educated pt on non | | Exercise/Mobility [...]
--- OUTSIDE RECORDS SUMMARY | ~2020-03-14 | XMS | Encounter Summary ---
Demographics + + + | Address | [address] | | | [place] [address] | + + + | Home Phone [...] Team Providers + +------+ + | Care Brake Lining Finisher Asbestos Name | Role | Phone | + [...] [place] | | | | | | [address] | | | | | | [phone] | | | +--------+ + + + [...] | | | | | [place] [address] | | | | | | [phone] | | | | | | | | +--------+ + + + + | 04/13/ | Office | Cardiology | Shawn Michael | | | 2020 | Visit | | MD Marcelino [address] | | | | | | [address] [place] | | | | | | [place] [address] | | | | | | [phone] | | | | | | | [...]
--- OUTSIDE RECORDS SUMMARY | ~2020-03-14 | XMS | Encounter Summary ---
Demographics + + + | Address | [address] | | | [place] [address] | + + + | Home Phone [...] Team Providers + +------+ + | Care Him Assistant Name | Role | Phone | [...] [place] | | | | | | [address] | | | | | | [phone] | | | +--------+ + + + [...] | | | | | [place] [address] | | | | | | [phone] | | | | | | | | +--------+ + + + + | 04/13/ | Office | Cardiology | Shawn Michael | | 2019 | Visit | | MD Marcelino [address] | | | | | | [address] | | | | | | [place] [address] | | | | | | [phone] | | | | | | | [...]
--- OUTSIDE RECORDS SUMMARY | ~2020-03-14 | XMS | Encounter Summary ---
Demographics + + + | Address | [address] | | | [place] [address] | + + + | Home Phone [...] Providers + +------+ + | Care Senior Auditor Name | Role | Phone | [...] Care | [facility] [place] | Emily Reyonlds, PT | CASE COMMUNICATION | | 2019 | Visit | [place] [address] | | | | | | ST [place] | | | | | | [address] | | | | | | [phone] | | | +--------+ + + + [...] | | | | | [place] [address] | | | | | | [phone] | | | | | | | | +--------+ + + + + | 04/13/ | Office | Cardiology | Shawn Michael | | 2019 | Visit | | MD Marcelino [address] | | | | | | [address] | | | | | | [place] [address] | | | | | | [phone] | | | | | | | [...]
--- OUTSIDE RECORDS SUMMARY | ~2020-03-14 | XMS | Encounter Summary ---
Demographics + + + | Address | [address] | | | [place] [address] | + + + | Home Phone [...] Team Providers + +------+ + | Care Drug Abuse Resistance Education Officer Name | Role | Phone | [...] [place] | | | | | | [address] | | | | | | [phone] | | | +--------+ + + + [...] | | | | | [place] [address] | | | | | | [phone] | | | | | | | | +--------+ + + + + | 04/13/ | Office | Cardiology | Shawn Michael | | | 2019 | Visit | | MD Marcelino [address] | | | | | | [address] [place] | | | | | | [place] [address] | | | | | | [phone] | | | | | | | [...] | | | | | | horn, rural electrification engineer and | | | | | | [...]
--- OUTSIDE RECORDS SUMMARY | ~2020-03-14 | XMS | Encounter Summary ---
Demographics + + + | Address | [address] | | | [place] [address] | + + + | Home Phone [...] Team Providers + +------+ + | Care Finisher Fine Diamond Dies Name | Role | Phone | [...] Visit | [place] [address] | INTERIOR PANELER [address] | | | | | [place] | [place] | | | | | [address] | [address] | | | | | [phone] | | | +--------+ + + + [...] | | 2019 | Visit | | CORE SUCKER [address] | | | | | | [place] | | | | | | [address] | | | | | | | | +--------+ + + + + | 04/11/ | Appointment | Radiology | Shawn Michael | | | 2019 | | | MD [address] | | | | | | [address] [place] | | | | | | [place] [address] | | | | | | [phone] | | | | | | | | +--------+ + + + + | 04/13/ | Office | Cardiology | Shawn Michael | | | 2019 | Visit | | MD [address] | | | | | | [address] [place] | | | | | | [place] [address] | | | | | | [phone] | | | | | | | [...]
--- OUTSIDE RECORDS SUMMARY | ~2020-03-14 | XMS | Encounter Summary ---
Demographics + + + | Address | [address] | | | [place] [address] | + + + | Home Phone [...] Providers + +------+ + | Care Special Education Instructor Name | Role | Phone [...] | Occupational | Diagnoses | | [facility] | | | Services | Therapy / | Generalized | Yana-Tajt | [place] | | | Required | Rehabilitatio | | i, | Therapy [address] | | | | n | osteoarthrit | Candido | [address] | | | | | is | , MD [address] | [place], | | | | | Procedures | [address] | [place] [address] | | | | | PT | [place], | Phone: | | | | | | [place] | [phone] | | | | | | [address] | Fax: | | | | | | Phone: | [phone] | | | | | | [phone] | | | | | | | Fax: | | | | | | | [phone] | | +--------+ + + + + + Encounter Details +--------+---------+ + + + | Date | Type | Department | Care Team | Description | +--------+---------+ + + + | 08/03/ | Office | [facility] | Yana-Lani, | Generalized | | 2019 | Visit | [facility] | MD Candido | osteoarthritis | | | | [address] | [address] [facility] [place] | (Primary Dx); Acute | | | | [place] | [place] [address] | pain of right | | | | [address] | [phone] | shoulder; Weakness | | | | [phone] | | of both hands | | | | | Ivett Roger A, OT | | | | | | [address] | | | | | | [place] | | | | | | [address] | | | | | | | [...] mition of the shoulder. Treatment Plan/Interventions OT [id number] - Therapeutic [id number] - Therapeutic Kecngyjmrp63882 - Self Care/Ho me [id number] - Manual Therapy Patient and/or family has indicated understanding of treatment needs and actively participa yoel in the creation of this plan for care. Electronically signed by: Ivett Roger OT, 08/03/2019 15:45 Patient Name: Ángela Crowley/: 1930/ y signed by Candido Link MD at 08/03/2019 8:48 PM PDTNoel, Ivett Dahl OT - 08/03/2019 10:30 AM PDT [facility] [place] [facility] [address] [place] [address] Occupational Therapy Initial Assessment Date: 08/03/2019 Patient [...] MD; Location: [facility] PROCEDURE UNIT NIRMAL AND BSO TONSILLECTOMY AND ADENOIDECTOMY UPPER GASTROINTESTINAL ENDOSCOPY N/A 06/07/2019 Procedure: EGD; Surgeon: Edwin Stoddard MD; Location: [facility] MEDICAL PROCEDURE UNIT Family History [...] in lbs Right Left Right Left Gross Business Planning Manager 21, 20, 20 average 20 25, 24, 22 average 24 Montero Pinch Average menagerie caretaker for female over age 75 is R [...] 08/03/2019 Certification To: 09/17/2019 Treatment Plan/Interventions OT [id number] - Therapeutic Oybvzdql51681 - Therapeutic Cksdwzqlon82364 - Self Care/Ho me Gsyjuqsffm46078 - Manual Therapy Patient and/or family has [...] | | 2019 | Visit | | [place] [address] | | | | | | [place] | | | | | | [address] | | | | | | | | +--------+ + + + + | 04/11/ | Appointment | Radiology | Shawn Michael | | | 2019 | | | MD [address] | | | | | | [address] [place] | | | | | | [place] [address] | | | | | | [phone] | | | | | | | | +--------+ + + + + | 04/13/ | Office | Cardiology | Shawn Michael | | | 2019 | Visit | | MD [address]yn[address] | | | | | | [address] [place] | | | | | | [place] [address] | | | | | | [phone] | | | | | | | [...]
--- OUTSIDE RECORDS SUMMARY | ~2020-03-14 | XMS | Encounter Summary ---
Demographics + + + | Address | [address] | | | [place] [address] | + + + | Home Phone [...] Team Providers + +------+ + | Care Storeroom Keeper Name | Role | Phone | + [...] [place] | | | | | | [address] | | | | | | [phone] | | | +--------+ + + + [...] [place] | | | | | | [address] | | | | | | | | +--------+ + + + + | 04/11/ | Appointment | Radiology | Shawn Michael | | | 2019 | | | MD Marcelino [address] | | | | | | [address] | | | | | | [place] [address] | | | | | | [phone] | | | | | | | | +--------+ + + + + | 04/13/ | Office | Cardiology | Shawn Michael | | | 2020 | Visit | | MD Marcelino [address] | | | | | | [address] | | | | | | [place] [address] | | | | | | [phone] | | | | | | | [...]
--- OUTSIDE RECORDS SUMMARY | ~2020-03-14 | XMS | Encounter Summary ---
Demographics + + + | Address | [address] | | | [place] [address] | + + + | Home Phone [...] Team Providers + +------+ + | Care Weight Engineer Name | Role | Phone | [...] + + | 12/02/ | Telephone | [facility] | Janel, | Care Coordination | | 2020 | | MEDICINE [place] | Brittany Schulz RN | | | | | [address] | | | | | | [place] | | | | | | [address] | | | | | | [phone] | | | +--------+ + + + [...] 2019 | Visit | | PUNCH PRESS OPERATOR HELPER [address] | | | | | | [place] | | | | | | [address] | | | | | | | | +--------+ + + + + | 04/11/ | Appointment | Radiology | Shawn Michael | | 2019 | | | MD [address] | | | | | | [address] [place] | | | | | | [place] [address] | | | | | | [phone] | | | | | | | | +--------+ + + + + | 04/13/ | Office | Cardiology | Shawn Michael | | 2019 | Visit | | MD [address]yn[address] | | | | | | [address] [place] | | | | | | [place] [address] | | | | | | [phone] | | | | | | | [...]
--- OUTSIDE RECORDS SUMMARY | ~2020-03-14 | XMS | Encounter Summary ---
Demographics + + + | Address | [address] | | | [place] [address] | + + + | Home Phone | | + + + | Preferred Language | Unknown | + + + | Marital Status | | + + + | Catholic Affiliation | Unknown | + + + | Race | Unknown | + + + | Ethnic Group | Unknown | + + + Author + + + | Author | [facility] | | | and [place] | + + + | Organization | [facility] | | | [...] Providers + +------+ + | Care Preschool Principal Name | Role | Phone | + [...] + + | 02/06/ | Telephone | [facility] | Nikolay, | Medication Refill | | 2019 | | MEDICINE [address] | MD Candido | | | | | [facility] | [address] [place] [address] | | | | | [place] [address] | [place] [address] | | | | | [phone] | [phone] | | | | | | | [...] | | 2019 | Visit | | REGISTRAR ASSISTANT [address] | | | | | | [place] | | | | | | [address] | | | | | | | | +--------+ + + + + | 04/11/ | Appointment | Radiology | Shawn Michael | | | 2019 | | | MD [address] | | | | | | [address] [place] | | | | | | [place] [address] | | | | | | [phone] | | | | | | | | +--------+ + + + + | 04/13/ | Office | Cardiology | Shawn Michael | | | 2019 | Visit | | MD [address]yn[address] | | | | | | [address] [place] | | | | | | [place] [address] | | | | | | [phone] | | | | | | | [...]
--- OUTSIDE RECORDS SUMMARY | ~2020-03-14 | XMS | Encounter Summary ---
Demographics + + + | Address | [address] | | | [place] [address] | + + + | Home Phone [...] Team Providers + +------+ + | Care Epic Anesthesia Analyst Name | Role | Phone | [...] [place] | | | | | | [address] | | | | | | [phone] | | | +--------+ + + + [...] | | | | | [place] [address] | | | | | | [phone] | | | | | | | | +--------+ + + + + | 04/13/ | Office | Cardiology | Shawn Michael | | 2019 | Visit | | MD Marcelino [address] | | | | | | [address] | | | | | | [place] [address] | | | | | | [phone] | | | | | | | [...]
--- OUTSIDE RECORDS SUMMARY | ~2020-03-14 | XMS | Encounter Summary ---
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 | Dalton-Gillian | [address] [place] | | | | | ([facility]) | MD [address] | [place] | | | | | | [address] | [address] Phone: | | | | | | [place], | [phone] | | | | | | [place] | Fax: | | | | | | [address] | [phone] | | | | | | Phone: | | | | | | | [phone] | | | | | | | Fax: | | | | | | | [phone] | | + + + + + + + Encounter Details +--------+ + + + + | Date | Type | Department | Care Team | Description | +--------+ + + + + | 01/20/ | Virtual | [facility] | Lina Correa | 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 Service was provided xzfm-qb-smjy with the patient via interactive videoconferencing Video start time 10:15 Video end time 10:31 Total time (in minutes) including non fnbx-ep-cdkq time (reviewing records, documentation, etc..) 26 mins You have chosen to receive care through the use of telemedicine. Telemedicine enables [facility] care providers at different locations to provide [...] | 2019 | Visit | | CLINICAL RESEARCH TECHNICIAN [address] | | | | | | [place] | | | | | | [id number] | | | | | | | | +--------+ + + + + | 04/11/ | Appointment | Radiology | Shawn Michael | | 2019 | | | MD Marcelino [address] | | | | | | [address] | | | | | | [place] [address] | | | | | | [phone] | | | | | | | | +--------+ + + + + | 04/13/ | Office | Cardiology | Shawn Michael | | | 2019 | Visit | | MD Marcelino [address] | | | | | | [address] [place] | | | | | | [place] [address] | | | | | | [phone] | | | | | | | [...]
--- OUTSIDE RECORDS SUMMARY | ~2020-03-14 | XMS | Encounter Summary ---
Demographics + + + | Address | [address] | | | [place] [address] | + + + | Home Phone [...] Team Providers + +------+ + | Care Conciliation Court Judge Name | Role | Phone [...] [place] | | | | | | [address] | | | | | | [phone] | | | +--------+ + + + [...] [place] | | | | | | [id number] | | | | | | | | +--------+ + + + + | 04/11/ | Appointment | Radiology | Shawn Michael | | 2019 | | | MD Marcelino [address] | | | | | | [address] | | | | | | [place] [address] | | | | | | [phone] | | | | | | | | +--------+ + + + + | 04/13/ | Office | Cardiology | Shawn Michael | | | 2020 | Visit | | MD Marcelino [address] | | | | | | [address] | | | | | | [place] [address] | | | | | | [phone] | | | | | | | [...] 020 | | | interventio | | Nursing Home | | | | | n [...] | | Active | | | | Nursing Home | | 020 | | | [...] | | Active | | | | Nursing Home | | 020 | | | [...] interventio | | Nursing Home | | 020 | | scheduled/d [...] | | | | ns | | Nursing Home | | | | | scheduled/d [...] | | Active | | | | Nursing Home | | 020 | | | [...]
--- OUTSIDE RECORDS SUMMARY | ~2020-03-14 | XMS | Encounter Summary ---
Demographics + + + | Address | [address] | | | [place] [address] | + + + | Home Phone [...] Team Providers + +------+ + | Care Primary Substance Abuse Counselor Name | Role | Phone | [...] | | | [address] [place] | [facility] [place] [address] | | | | | [place] [address] | | | | | | [phone] | | | +--------+ + + + [...] | | 2019 | Visit | | LOADING MACHINE OPERATOR HELPER [address] | | | | | | [place] | | | | | | [address] | | | | | | | | +--------+ + + + + | 04/11/ | Appointment | Radiology | Shawn Michael | | | 2019 | | | MD [address] | | | | | | [address] [place] | | | | | | [place], [place] [address] | | | | | | [phone] | | | | | | | | +--------+ + + + + | 04/13/ | Office | Cardiology | Shawn Michael | | 2019 | Visit | | MD [address]yn[address] | | | | | | [address] [place] | | | | | | [place] [address] | | | | | | [phone] | | | | | | | [...]
--- OUTSIDE RECORDS SUMMARY | ~2020-03-14 | XMS | Encounter Summary ---
Demographics + + + | Address | [address] | | | [place] [address] | + + + | Home Phone [...] Providers + +------+ + | Care Head Start Director Name | Role | Phone | [...] [place] | | | | | | [address] | | | | | | [phone] | | | +--------+ + + + [...] [place] | | | | | | [id number] | | | | | | | | +--------+ + + + + | 04/11/ | Appointment | Radiology | Shawn Michael | | | 2019 | | | MD Marcelino [address] | | | | | | [address] | | | | | | [place] [address] | | | | | | [phone] | | | | | | | | +--------+ + + + + | 04/13/ | Office | Cardiology | Shawn Michael | | | 2020 | Visit | | MD Marcelino [address] | | | | | | [address] | | | | | | [place] [address] | | | | | | [phone] | | | | | | | [...]
--- OUTSIDE RECORDS SUMMARY | ~2020-03-14 | XMS | Encounter Summary ---
Demographics + + + | Address | [address] | | | [place] [address] | + + + | Home Phone [...] Team Providers + +------+ + | Care Lumber Planer Name | Role | Phone | + [...] + + | 12/29/ | Telephone | [facility] | Nikolay, | Medication Question | | 2019 | | MEDICINE [address] [place] [address] | MD Candido | | | | | [facility] | [address] [place] [address] | | | | | [place] [address] | [place] [address] | | | | | [phone] | [phone] | | | | | | | [...] | 2019 | Visit | | GAS LOAD DISPATCHER [address] | | | | | | [place] | | | | | | [address] | | | | | | | | +--------+ + + + + | 04/11/ | Appointment | Radiology | Shawn Michael | | | 2019 | | | MD [address] | | | | | | [address] [place] | | | | | | [place] [address] | | | | | | [phone] | | | | | | | | +--------+ + + + + | 04/13/ | Office | Cardiology | Shawn Michael | | | 2019 | Visit | | MD [address]yn[address] | | | | | | [address] [place] | | | | | | [place] [address] | | | | | | [phone] | | | | | | | [...]
--- OUTSIDE RECORDS SUMMARY | ~2020-03-14 | XMS | Encounter Summary ---
Demographics + + + | Address | [address] | | | [place] [address] | + + + | Home Phone [...] Providers + +------+ + | Care Superintendent [employer] Name | Role | Phone | + [...] [place] | | | | | | [address] | | | | | | [phone] | | | +--------+ + + + [...] | | | | | [place] [address] | | | | | | [phone] | | | | | | | | +--------+ + + + + | 04/13/ | Office | Cardiology | Shawn Michael | | | 2019 | Visit | | MD Marcelino [address] | | | | | | [address] [place] | | | | | | [place] [address] | | | | | | [phone] | | | | | | | [...] START OF CARE | | Discipline - Jail | + + + + +--------+--------+-------+ + [...] | | | | n | | Jail | | | | [...]
--- OUTSIDE RECORDS SUMMARY | ~2020-03-14 | XMS | Encounter Summary ---
Demographics + + + | Address | [address] | | | [place] [address] | + + + | Home Phone [...] Team Providers + +------+ + | Care Physical Plant Employee Name | Role | Phone | + [...] [place] | | | | | | [address] | | | | | | [phone] | | | +--------+ + + + [...] | | | | | [place] [address] | | | | | | [phone] | | | | | | | | +--------+ + + + + | 04/13/ | Office | Cardiology | Shawn Michael | | | 2019 | Visit | | MD Marcelino [address] | | | | | [address] [place] | | | | | | [place] [address] | | | | | | [phone] | | | | | | | [...] | | | | | | horn, vehicle operator and | | | | | | [...] planning, | | | | trialled the vehicle operator for | | teaching/training, | | | [...]
--- OUTSIDE RECORDS SUMMARY | ~2020-03-14 | XMS | Encounter Summary ---
Demographics + + + | Address | [address] | | | [place] [address] | + + + | Home Phone [...] Team Providers + +------+ + | Care Loan Underwriter Name | Role | Phone | + [...] [address] [place] | [place] [address] | | | | | [address] | [phone] | | | | | [phone] | | | +--------+ + + + [...] [place] | | | | | | [address] | | | | | | | | +--------+ + + + + | 04/11/ | Appointment | Radiology | Shawn Michael | | 2019 | | | MD Marcelino [address] | | | | | [address] | | | | | | [place] [address] | | | | | | [phone] | | | | | | | | +--------+ + + + + | 04/13/ | Office | Cardiology | Shawn Michael | | | 2020 | Visit | | MD Marcelino [address] | | | | | | [address] [place] | | | | | | [place] [address] | | | | | | [phone] | | | | | | | [...]
--- OUTSIDE RECORDS SUMMARY | ~2020-03-14 | XMS | Encounter Summary ---
Demographics + + + | Address | [address] | | | [place] [address] | + + + | Home Phone [...] Team Providers + +------+ + | Care Mixer Runner Name | Role | Phone | + [...] | | | [address] [place] | [place] [address] | | | | | [place] [address] | | | | | | [phone] | | | +--------+ + + + [...] | | 2019 | Visit | | RENTAL CAR FERRY DRIVER [address] | | | | | | [place] | | | | | | [address] | | | | | | | | +--------+ + + + + | 04/11/ | Appointment | Radiology | Shawn Michael | | | 2019 | | | MD [address]ynor [address] | | | | | | [address] [place] | | | | | | [place], [place] [address] | | | | | | [phone] | | | | | | | | +--------+ + + + + | 04/13/ | Office | Cardiology | Shawn Michael | | 2019 | Visit | | MD [address] | | | | | | [address] [place] | | | | | | [place] [address] | | | | | | [phone] | | | | | | | | +--------+ + + + + documented as of this encounter Procedures + +--------+ + + + | Procedure Name | Priori | Date/Time | Associated Diagnosis | Comments | | | ty | | | | + +--------+ + + + | XR ABDOMEN AP | Routin | 02/17/2019 | | Results for this | | | e | 12:00 AM | | procedure are in the | | | | PDT | | results section. | + +--------+ + + + documented in this encounter Results XR Abdomen AP (02/17/2019 12:00 AM PDT) + + | Specimen [...]
--- OUTSIDE RECORDS SUMMARY | ~2020-03-14 | XMS | Encounter Summary ---
Demographics + + + | Address | [address] | | | [place] [address] | + + + | Home Phone [...] Team Providers + +------+ + | Care Baller Tender Name | Role | Phone | [...] | | | , [address] | [place] [address] | | | | | | [address] | Phone: | | | | | | [place], | [phone] | | | | | | [place] | Fax: | | | | | | [address] | [phone] | | | | | | Phone: | | | | | | | [phone] | | | | | | | Fax: | | | | | | | [phone] | | + + + + + + + Encounter Details +--------+---------+ + + + | Date | Type | Department | Care Team | Description | +--------+---------+ + + + | 10/12/ | Office | [facility] UR[facility]Y | Jag Anthony | 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) (Primary | | | | [place] | [address]VE [place] | Dx); Recurrent UTI; | | | | [address] | [address] | Urge incontinence; | | | | [phone] | | Atrophic vaginitis | +--------+---------+ + [...] Flex Sig; Surgeon: Edwin Stoddard MD; Location: [facility] PROCEDURE UNIT HYSTERECTOMY NIRMAL AND BSO TONSILLECTOMY AND ADENOIDECTOMY UPPER GASTROINTESTINAL ENDOSCOPY N/A 06/07/2019 Procedure: EGD; Surgeon: Edwin Stoddard MD; Location: [facility] MEDICAL PROCEDURE UNIT UPPER GASTROINTESTINAL ENDOSCOPY N/A 08/20/2019 Procedure: EGD; Surgeon: John Grimes MD; Location: [facility] MEDICAL PROCEDURE UNIT Family History: Family [...] delayed get up and go test; decreased hat marker strength bilaterally Data: Results for orders placed [...] pH, Urine 5.0 5.0 - 8.0 Specific [place] 1.027 1.001 - 1.030 Protein, Urine Negative [...] have not thoroughly proofread this note, and brick loader errors are very likely to occur. CC: Candido Link MD documented in this encounter Plan of Treatment +--------+ + + + + | Date | Type | Specialty | Care Team | Description | +--------+ + + + + | 03/23/ | Office | Anticoagulation | García Harris, | | 2019 | Visit | | RELAY MOTORMAN [facility] [address] | | | | [...] | | | | | [place] [address] | | | | | | [phone] | | | | | | | | +--------+ + + + + | 04/13/ | Office | Cardiology | Shawn Michael | | | 2020 | Visit | | MD Marcelino [address] | | | | | | [place] [facility] | | | | | | [place] [address] | | | | | | [phone] | | | | | | | [...]
--- OUTSIDE RECORDS SUMMARY | ~2020-03-14 | XMS | Encounter Summary ---
Demographics + + + | Address | [address] | | | [place] [address] | + + + | Home Phone [...] Team Providers + +------+ + | Care Licensed Vocational Nurse Name | Role | Phone | [...] [place] | | | | | | [address] | | | | | | [phone] | | | +--------+ + + + [...] [place] | | | | | | [address] | | | | | | | | +--------+ + + + + | 04/11/ | Appointment | Radiology | Shawn Michael | | | 2019 | | | MD Marcelino [address] | | | | | | [address] | | | | | | [place] [address] | | | | | | [phone] | | | | | | | | +--------+ + + + + | 04/13/ | Office | Cardiology | Shawn Michael | | | 2019 | Visit | | MD Marcelino [address] | | | | | | [address] [place] | | | | | | [place] [address] | | | | | | [phone] | | | | | | | [...] START OF CARE | | Discipline - [facility] | + + + + +--------+--------+-------+ + | Problem | Description | Start | Status | Goals | Interventio | | | | Date | | | ns | + + +--------+--------+-------+ + | [facility] [place] | | | | - | 2 problem | | Disciplines: | | 06/13/20 | Active | | | | [facility], | | 19 | | | interventio [...] 06/13/20 | Active | | | | [facility] | | 19 | | | interventio [...] 19 | | | interventio | | [facility] | | | | | ns | [...] 06/13/20 | Active | | | | [facility] | Pneumonia | 19 | | | [...] | n | | [facility] | | | | | scheduled/d | [...] | n | | [facility] | | | | | scheduled/d | | | | | | | ocumented | | | | | | | in this | | | | | | | visit | + + +--------+--------+-------+ + | Respiratory Status | COPD & CHF | | | - | 2 problem | | Disciplines: | | 06/13/20 | Active | | | | [facility] | | 19 | | | interventio [...] | | | | | indicated per [facility] | | | | | [...]
--- OUTSIDE RECORDS SUMMARY | ~2020-03-14 | XMS | Encounter Summary ---
Demographics + + + | Address | [address] | | | [place] [address] | + + + | Home Phone [...] Team Providers + +------+ + | Care Fiscal Agent Name | Role | Phone | + [...] Therapy / | Chronic | Yana-Tajt | [place] | | | Required | Rehabilitatio | right | i, | Therapy [address] | | | | n | shoulder | Dalton-Gillian | [address] | | | | | pain | , MD [address] | [place], | | | | | Procedures | [address] | [place] [address] | | | | | PT ? HH | [place], | Phone: | | | | | | [place] | [phone] | | | | | | [address] | Fax: | | | | | | Phone: | [phone] | | | | | | [phone] | | | | | | | Fax: | | | | | | | [phone] | | +--------+ + + + + + Encounter Details +--------+ + + + + | Date | Type | Department | Care Team | Description | +--------+ + + + + | 01/05/ | Orders Only | [facility] | Yana-Lani, | Chronic right | | 2019 | | MEDICINE [address] | MD Candido | shoulder pain | | | | [address] [place] | [address] [facility] | (Primary Dx) | | | | [place] [address] | [place] [address] | | | | | [phone] | [phone] | | | | | | | [...] [place] | | | | | | [address] | | | | | | | | +--------+ + + + + | 04/11/ | Appointment | Radiology | Shawn Michael | | | 2019 | | | MD [address] | | | | | | [address] [place] | | | | | | [place] [address] | | | | | | [phone] | | | | | | | | +--------+ + + + + | 04/13/ | Office | Cardiology | Shawn Michael | | | 2019 | Visit | | MD [address] | | | | | | [address] [place] | | | | | | [place] [address] | | | | | | [phone] | | | | | | | | +--------+ + + + + + + +--------+ + + | Name | Type | Priori | Associated Diagnoses | Order Schedule | | | | ty | | | + + +--------+ + + | * [facility] | Outpatient | Routin | Chronic right | Expected: | | [place] | Referral | e | shoulder pain [...]
--- OUTSIDE RECORDS SUMMARY | ~2020-03-14 | XMS | Encounter Summary ---
Demographics + + + | Address | [address] | | | [place] [address] | + + + | Home Phone [...] [place] | | | | | | [address] | | | | | | [phone] | | | +--------+ + + + [...] | | | | | [place] [address] | | | | | | [phone] | | | | | | | | +--------+ + + + + | 04/13/ | Office | Cardiology | Shawn Michael | | | 2019 | Visit | | MD Marcelino [address] | | | | | | [address] [place] | | | | | | [place] [address] | | | | | | [phone] | | | | | | | [...] | | Description: | DEFICITSGoal: OT | yoel | | | | Occupational | FINE [...]
--- OUTSIDE RECORDS SUMMARY | ~2020-03-14 | XMS | Encounter Summary ---
Demographics + + + | Address | [address] | | | [place] [address] | + + + | Home Phone [...] Team Providers + +------+ + | Care Range Scientist Name | Role | Phone | [...] [place] | | | | | | [address] | | | | | | [phone] | | | +--------+ + + + [...] [place] | | | | | | [address] | | | | | | | | +--------+ + + + + | 04/11/ | Appointment | Radiology | Shawn Michael | | | 2019 | | | MD Marcelino [address] | | | | | | [address] | | | | | | [place] [address] | | | | | | [phone] | | | | | | | | +--------+ + + + + | 04/13/ | Office | Cardiology | Shawn Michael | | | 2020 | Visit | | MD Marcelino [address] | | | | | | [place] [address] | | | | | | [place] [address] | | | | | | [phone] | | | | | | | [...]
--- OUTSIDE RECORDS SUMMARY | ~2020-03-14 | XMS | Encounter Summary ---
Demographics + + + | Address | [address] | | | [place] [address] | + + + | Home Phone [...] Providers + +------+ + | Care Instructional Systems Design Consultant Name | Role | Phone | [...] [address] [place] | [place] [address] | | | | | [address] | [phone] | | | | | [phone] | | | +--------+ + + + [...] [place] | | | | | | [address] | | | | | | | | +--------+ + + + + | 04/11/ | Appointment | Radiology | Shawn Michael | | 2019 | | | MD Marcelino [address] | | | | | | [address] | | | | | | [place] [address] | | | | | | [phone] | | | | | | | | +--------+ + + + + | 04/13/ | Office | Cardiology | Julieta Micahelr | | | 2019 | Visit | | MD Marcelino [address] | | | | | | [address] [place] | | | | | | [place] [address] | | | | | | [phone] | | | | | | | [...]
--- OUTSIDE RECORDS SUMMARY | ~2020-03-14 | XMS | Encounter Summary ---
Demographics + + + | Address | [address] | | | [place] [address] | + + + | Home Phone [...] Providers + +------+ + | Care Home Office Claim Specialist Name | Role | Phone | [...] [place] | | | | | | [address] | | | | | | [phone] | | | +--------+ + + + [...] [place] | | | | | | [address] | | | | | | | | +--------+ + + + + | 04/11/ | Appointment | Radiology | Shawn Michael | | | 2019 | | | MD Marcelino [address] | | | | | | [address] | | | | | | [place] [address] | | | | | | [phone] | | | | | | | | +--------+ + + + + | 04/13/ | Office | Cardiology | Shawn Michael | | | 2020 | Visit | | MD Marcelino [address] | | | | | | [place] [address] | | | | | | [place] [address] | | | | | | [phone] | | | | | | | [...]
--- OUTSIDE RECORDS SUMMARY | ~2020-03-14 | XMS | Encounter Summary ---
Demographics + + + | Address | [address] | | | [place] [address] | + + + | Home Phone [...] Team Providers + +------+ + | Care Offset Label Rewinder Name | Role | Phone | [...] + | 08/20/ | Telephone | [facility] | Martine Gaitan, | Other | | 2019 | | [facility] | OT [address] | | | | | [address] | [place] | | | | | [place] | [address] | | | | | [address] | | | | | | [phone] | | | +--------+ + + + [...] | | 2020 | Visit | | WELL SERVICES OPERATOR [address] | | | | | | [place] | | | | | | [address] | | | | | | | | +--------+ + + + + | 04/11/ | Appointment | Radiology | Shawn Michael | | | 2019 | | | MD [address] | | | | | | [address] [place] | | | | | | [place] [address] | | | | | | [phone] | | | | | | | | +--------+ + + + + | 04/13/ | Office | Cardiology | Shawn Michael | | 2019 | Visit | | MD [address] | | | | | | [address] [place] | | | | | | [place] [address] | | | | | | [phone] | | | | | | | [...]
--- OUTSIDE RECORDS SUMMARY | ~2020-03-14 | XMS | Encounter Summary ---
Demographics + + + | Address | [address] | | | [place] [address] | + + + | Home Phone [...] Team Providers + +------+ + | Care Monomer Purification Operator Name | Role | Phone | [...] + + | 06/14/ | Telephone | [facility] | Kathleen Escobar, | [facility] - H[facility] | | 2019 | | [facility] | [address] [facility] | | | | | [address] | [address] | | | | | [place], [place] | [place], [place] | | | | | [address] | [id number] | | | | | [phone] | | | +--------+ + + + [...] | | 2019 | Visit | | PEARL DIGGER [address] | | | | | | [place] | | | | | | [address] | | | | | | | | +--------+ + + + + | 04/11/ | Appointment | Radiology | Shawn Michael | | | 2019 | | | MD [address] | | | | | | [address] [place] | | | | | | [place] [address] | | | | | | [phone] | | | | | | | | +--------+ + + + + | 04/13/ | Office | Cardiology | Shawn Michael | | 2019 | Visit | | MD [address] | | | | | | [address] [place] | | | | | | [place] [address] | | | | | | [phone] | | | | | | | [...]
--- OUTSIDE RECORDS SUMMARY | ~2020-03-14 | XMS | Encounter Summary ---
Demographics + + + | Address | [address] | | | [place] [address] | + + + | Home Phone [...] Team Providers + +------+ + | Care Wet Process Head Miller Name | Role | Phone | + [...] | | | | [place] | | | | | | [address] | | | | | | [phone] | | | +--------+ + + + [...] [place] | | | | | | [address] | | | | | | | | +--------+ + + + + | 04/11/ | Appointment | Radiology | Shawn Michael | | 2019 | | | MD Marcelino [address] | | | | | | [address] | | | | | | [place] [address] | | | | | | [phone] | | | | | | | | +--------+ + + + + | 04/13/ | Office | Cardiology | Shawn Michael | | | 2019 | Visit | | MD Marcelino [address] | | | | | | [address] [place] | | | | | | [place] [address] | | | | | | [phone] | | | | | | | [...] | | | | | | horn, emergency medical technician/driver and | | | | | | [...] MOTOR | Met | Yes | Increased patient liaison | | COORDINATION | COORDINATION | | [...] IMPAIRED | Met | Yes | Increased patient liaison | | STRENGTH | STRENGTH | | [...]
--- OUTSIDE RECORDS SUMMARY | ~2020-03-14 | XMS | Encounter Summary ---
Demographics + + + | Address | [address] | | | [place] [address] | + + + | Home Phone [...] Team Providers + +------+ + | Care Mangle Roller Name | Role | Phone | [...] [place] | | | | | | [address] | | | | | | [phone] | | | +--------+ + + + [...] [place] | | | | | | [address] | | | | | | | | +--------+ + + + + | 04/11/ | Appointment | Radiology | Shawn Michael | | | 2019 | | | MD Marcelino [address] | | | | | | [address] | | | | | | [place] [address] | | | | | | [phone] | | | | | | | | +--------+ + + + + | 04/13/ | Office | Cardiology | Shawn Michael | | | 2020 | Visit | | MD Marcelino [address] | | | | | | [address] | | | | | | [place] [address] | | | | | | [phone] | | | | | | | [...]
--- OUTSIDE RECORDS SUMMARY | ~2020-03-14 | XMS | Encounter Summary ---
Demographics + + + | Address | [address] | | | [place] [address] | + + + | Home Phone [...] Team Providers + +------+ + | Care Wood Box Maker Name | Role | Phone | [...] + | 08/13/ | Refill | [facility] | Nikolay, | Medication Refill | | 2019 | | MEDICINE [address] | MD Candido | | | | | [facility] | [address] [place] [address] | | | | | [place] [address] | [place] [address] | | | | | [phone] | [phone] | | | | | | | [...] | | 2019 | Visit | | SOUND EFFECTS SUPERVISOR [address] | | | | | | [place] | | | | | | [address] | | | | | | | | +--------+ + + + + | 04/11/ | Appointment | Radiology | Shawn Michael | | | 2019 | | | MD [address] | | | | | | [address] [place] | | | | | | [place] [address] | | | | | | [phone] | | | | | | | | +--------+ + + + + | 04/13/ | Office | Cardiology | Shawn Michael | | | 2019 | Visit | | MD [address] | | | | | | [address] [place] | | | | | | [place], [place] [address] | | | | | | [phone] | | | | | | | | +--------+ + + + + documented as of this encounter Visit Diagnoses + + | Diagnosis | + + | Generalized osteoarthritis Generalized osteoarthrosis, unspecified site | + + | [facility] prescription opiate use | + + documented in this encounter Additional Health Concerns + + + + | Infection | Noted Time | Resolved Time | + + + + | Methicillin-resistant Staphylococcus aureus | 06/08/2019 9:39 AM | | | | PDT | | + + + + documented as of this encounter"
--- OUTSIDE RECORDS SUMMARY | ~2020-03-14 | XMS | Encounter Summary ---
Demographics + + + | Address | [address] | | | [place] [address] | + + + | Home Phone [...] Providers + +------+ + | Care Supervisor Garage Name | Role | Phone | + [...] ST [place] | [place] [address] | | | | | [address] | [phone] | | | | | [phone] | | | +--------+ + + + [...] [place] | | | | | | [address] | | | | | | | | +--------+ + + + + | 04/11/ | Appointment | Radiology | Shawn Michael | | | 2019 | | | MD Marcelino [address] | | | | | | [address] | | | | | | [place] [address] | | | | | | [phone] | | | | | | | | +--------+ + + + + | 04/13/ | Office | Cardiology | Zacharynnamdi Shawn | | | 2019 | Visit | | MD Marcelino [address] | | | | | | [address] [place] | | | | | | [place] [address] | | | | | | [phone] | | | | | | | [...] | | Active | | | | [facility], | | 020 | | | interventio | | Physical Therapy, | | | | | n | | Occupational | | | | | scheduled/d | | Therapy, Home Health | | | | | ocumented | | Jana Boat Diesel Motor Mechanic, | | | | | in this [...]
--- OUTSIDE RECORDS SUMMARY | ~2020-03-14 | XMS | Encounter Summary ---
Demographics + + + | Address | [address] | | | [place] [address] | + + + | Home Phone [...] Team Providers + +------+ + | Care Ham Passer Name | Role | Phone | [...] + + | 10/15/ | Telephone | [facility] | Nikolay, | Results | | 2019 | | MEDICINE [address] [place] [address] | MD Candido | | | | | [facility] | [address] [place] [address] | | | | | [place] [address] | [place] [address] | | | | | [phone] | [phone] | | | | | | | [...] | | 2019 | Visit | | BAR ROLLER [address] | | | | | | [place] | | | | | | [address] | | | | | | | | +--------+ + + + + | 04/11/ | Appointment | Radiology | Shawn Michael | | 2019 | | | MD [address] | | | | | | [address] [place] | | | | | | [place] [address] | | | | | | [phone] | | | | | | | | +--------+ + + + + | 04/13/ | Office | Cardiology | Shawn Michael | | 2019 | Visit | | MD [address] | | | | | | [address] [place] | | | | | | [place] [address] | | | | | | [phone] | | | | | | | [...]
--- OUTSIDE RECORDS SUMMARY | ~2020-03-14 | XMS | Encounter Summary ---
Demographics + + + | Address | [address] | | | [place] [address] | + + + | Home Phone [...] Team Providers + +------+ + | Care Hhas Name | Role | Phone | + [...] + + | 12/12/ | Refill | [facility] | Lina Correa | Medication Refill | | 2020 | | PULMONARY [address] | MD Jan [address] | | | | | [place], | [address] [place] | | | | | [place] [address] | [place] [address] | | | | | [phone] | [phone] | | | | | | | [...] | | 2019 | Visit | | SOLAR MANAGER [address] | | | | | | [place] | | | | | | [address] | | | | | | | | +--------+ + + + + | 04/11/ | Appointment | Radiology | Shawn Michael | | | 2019 | | | MD Myn[address] | | | | | | [address] [place] | | | | | | [place] [address] | | | | | | [phone] | | | | | | | | +--------+ + + + + | 04/13/ | Office | Cardiology | Shawn Michael | | | 2019 | Visit | | MD [address] | | | | | | [address] [place] | | | | | | [place], [place] [address] | | | | | | [phone] | | | | | | | [...]
--- OUTSIDE RECORDS SUMMARY | ~2020-03-14 | XMS | Encounter Summary ---
Demographics + + + | Address | [address] | | | [place] [address] | + + + | Home Phone [...] Providers + +------+ + | Care Steam Conditioning Operator Name | Role | Phone | [...] [place] | | | | | | [address] | | | | | | [phone] | | | +--------+ + + + [...] | | | | | [place] [address] | | | | | | [phone] | | | | | | | | +--------+ + + + + | 04/13/ | Office | Cardiology | Shawn Michael | | | 2019 | Visit | | MD Marcelino [address] | | | | | | [address] | | | | | | [place] [address] | | | | | | [phone] | | | | | | | [...] 06/13/20 | Active | | | | Intermediate, | | 19 | | | interventio [...] 06/13/20 | Active | | | | Intermediate | | 19 | | | interventio [...] 19 | | | interventio | | Intermediate | | | | | n | [...] 06/13/20 | Active | | | | Intermediate | | 19 | | | interventio [...]
--- OUTSIDE RECORDS SUMMARY | ~2020-03-14 | XMS | Encounter Summary ---
Demographics + + + | Address | [address] | | | [place] [address] | + + + | Home Phone [...] Team Providers + +------+ + | Care Customs Verifier Name | Role | Phone | + [...] [place] | | | | | | [address] | | | | | | [phone] | | | +--------+ + + + [...] | | | | | [place] [address] | | | | | | [phone] | | | | | | | | +--------+ + + + + | 04/13/ | Office | Cardiology | Shawn Michael | | | 2019 | Visit | | MD Marcelino [address] | | | | | | [address] | | | | | | [place] [address] | | | | | | [phone] | | | | | | | [...]
--- OUTSIDE RECORDS SUMMARY | ~2020-03-14 | XMS | Encounter Summary ---
Demographics + + + | Address | [address] | | | [place] [address] | + + + | Home Phone [...] Team Providers + +------+ + | Care Wringer And Setter Name | Role | Phone | [...] [place] | | | | | | [address] | | | | | | [phone] | | | +--------+ + + + [...] [place] | | | | | | [address] | | | | | | | | +--------+ + + + + | 04/11/ | Appointment | Radiology | Shawn Michael | | | 2019 | | | MD Marcelino [address] | | | | | | [address] | | | | | | [place] [address] | | | | | | [phone] | | | | | | | | +--------+ + + + + | 04/13/ | Office | Cardiology | Shawn Michael | | | 2019 | Visit | | MD Marcelino [address] | | | | | | [address] [place] | | | | | | [place] [address] | | | | | | [phone] | | | | | | | [...] - REPEAT VISIT | | Discipline - Half-Way | + + + + +--------+--------+ + [...] 020 | | | interventio | | Half-Way | | | | | n | [...] 020 | | | interventio | | Half-Way | | | | | n | [...] | | Active | | | | Half-Way | | 020 | | | interventio [...] | | Active | | | | Half-Way | | 020 | | | interventio [...] 020 | | | interventio | | Half-Way | | | | | n | [...] | | Active | | | | Half-Way, | | 020 | | | interventio | | Physical Therapy, | | | | | ns | | Occupational | | | | | scheduled/d | | Therapy, Home Health | | | | | ocumented | | [employer], | | | | | in this | | Respiratory Therapy | | | | | visit | + + +--------+--------+ + + | Heart Failure/CHF | Heart | | | 1 goal | 1 goal | | Disciplines: | Failure/CHF | | Active | linked to | interventio | | Half-Way | | 020 | | scheduled/d | [...] | | | | ns | | Half-Way | | | | | scheduled/d | [...] | | Active | | | | Half-Way | | 020 | | | interventio [...] to | | | | | | [facility] for counseling | | | | | [...] | | | | | indicated per [facility] | | | | | [...] | Comple | | | | Provided [facility] | | yoel | | | | [...]
--- OUTSIDE RECORDS SUMMARY | ~2020-03-14 | XMS | Encounter Summary ---
Demographics + + + | Address | [address] | | | [place] [address] | + + + | Home Phone [...] Providers + +------+ + | Care Metal Shaping Machine Operator Name | Role | Phone [...] [place] | | | | | | [address] | | | | | | [phone] | | | +--------+ + + + [...] [place] | | | | | | [id number] | | | | | | | | +--------+ + + + + | 04/11/ | Appointment | Radiology | Shawn Michael | | | 2019 | | | MD Marcelino [address] | | | | | | [address] | | | | | | [place] [address] | | | | | | [phone] | | | | | | | | +--------+ + + + + | 04/13/ | Office | Cardiology | Shawn Michael | | | 2020 | Visit | | MD Marcelino [address] | | | | | | [place] [address] | | | | | | [place] [address] | | | | | | [phone] | | | | | | | [...]
--- OUTSIDE RECORDS SUMMARY | ~2020-03-14 | XMS | Encounter Summary ---
Demographics + + + | Address | [address] | | | [place] [address] | + + + | Home Phone [...] Team Providers + +------+ + | Care Powder Worker Tnt Name | Role | Phone | + [...] Home Care | [facility] [place] | aSm Quintanilla, | PT REPEAT VISIT | | 2019 | Visit | [place] [address] | LEDGE MAN [address] | | | | | [place] | [place] | | | | | [address] | [address] | | | | | [phone] | | | +--------+ + + + [...] | | 2019 | Visit | | EMPLOYEE BENEFITS INSURANCE AGENT [address] | | | | | | [place] | | | | | | [address] | | | | | | | | +--------+ + + + + | 04/11/ | Appointment | Radiology | Shawn Michael | | | 2019 | | | MD [address] | | | | | | [address] [place] | | | | | | [place] [address] | | | | | | [phone] | | | | | | | | +--------+ + + + + | 04/13/ | Office | Cardiology | Shawn Michael | | 2019 | Visit | | MD [address] | | | | | | [address] [place] | | | | | | [place] [address] | | | | | | [phone] | | | | | | | [...] | | | | | and hips. LEDGE MAN notes | | | | | | [...] | Problem: HH PT | | | LEDGE MAN performed | | exercise | IMPAIRED | [...] home | | | | mini squats. LEDGE MAN | | exercise program to | | [...] | Problem: HH PT | | | LEDGE MAN instructed pt on | | training | [...] | Problem: HH SHARED | | | LEDGE MAN educated pt on | | Prevention | [...]
--- OUTSIDE RECORDS SUMMARY | ~2020-03-14 | XMS | Encounter Summary ---
Demographics + + + | Address | [address] | | | [place] [address] | + + + | Home Phone [...] Team Providers + +------+ + | Care Roll Cutter Name | Role | Phone | [...] + + | 02/06/ | Telephone | [facility] | Nikolay, | Medication Refill | | 2019 | | MEDICINE [address] | MD Candido | | | | | [facility] | [address] [place] [address] | | | | | [place] [address] | [place] [address] | | | | | [phone] | [phone] | | | | | | | [...] | | 2019 | Visit | | MOBILE MANAGER [address] | | | | | | [place] | | | | | | [address] | | | | | | | | +--------+ + + + + | 04/11/ | Appointment | Radiology | Shawn Michael | | | 2019 | | | MD [address] | | | | | | [address] [place] | | | | | | [place] [address] | | | | | | [phone] | | | | | | | | +--------+ + + + + | 04/13/ | Office | Cardiology | Shawn Michael | | | 2019 | Visit | | MD [address] | | | | | | [address] [place] | | | | | | [place] [address] | | | | | | [phone] | | | | | | | [...]
--- OUTSIDE RECORDS SUMMARY | ~2020-03-14 | XMS | Encounter Summary ---
Demographics + + + | Address | [address] | | | [place] [address] | + + + | Home Phone [...] + +------+ + | Care Director Of Purchasing Name | Role | Phone | + [...] [place] | | | | | | [address] | | | | | | [phone] | | | +--------+ + + + [...] [place] | | | | | | 573812 | | | | | | | | +--------+ + + + + | 04/11/ | Appointment | Radiology | Shawn Michael | | | 2019 | | | MD Marcelino [address] | | | | | | [address] | | | | | | [place] [address] | | | | | | [phone] | | | | | | | | +--------+ + + + + | 04/13/ | Office | Cardiology | Shawn Michael | | | 2020 | Visit | | MD Marcelino [address] | | | | | | [address] | | | | | | [place] [address] | | | | | | [phone] | | | | | | | [...]
--- OUTSIDE RECORDS SUMMARY | ~2020-03-14 | XMS | Encounter Summary ---
Demographics + + + | Address | [address] | | | [place] [address] | + + + | Home Phone [...] Team Providers + +------+ + | Care Surveillance Supervisor Name | Role | Phone | [...] [place] | | | | | | [address] | | | | | | [phone] | | | +--------+ + + + [...] | | | | | [place] [address] | | | | | | [phone] | | | | | | | | +--------+ + + + + | 04/13/ | Office | Cardiology | Julieta Michaelr | | | 2019 | Visit | | MD Marcelino [address] | | | | | | [address] [place] | | | | | | [place] [address] | | | | | | [phone] | | | | | | | [...]
--- OUTSIDE RECORDS SUMMARY | ~2020-03-14 | XMS | Encounter Summary ---
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
--- OUTSIDE RECORDS SUMMARY | ~2020-03-14 | XMS | Encounter Summary ---
Demographics + + + | Address | [address] | | | [place] [address] | + + + | Home Phone [...] Team Providers + +------+ + | Care Sports Physician Name | Role | Phone | [...] 09/24/ | Telephone | [facility] | Nikolay, | Other | | 2018 | | MEDICINE [address] [place] [address] | MD Candido | | | | | [facility] | [address] [place] [address] | | | | | [place] [address] | [place] [address] | | | | | [phone] | [phone] | | | | | | | [...] | | 2019 | Visit | | INTERLOCKING MACHINE OPERATOR [address] | | | | | | [place] | | | | | | [address] | | | | | | | | +--------+ + + + + | 04/11/ | Appointment | Radiology | Shawn Michael | | | 2019 | | | MD [address] | | | | | | [address] [place] | | | | | | [place] [address] | | | | | | [phone] | | | | | | | | +--------+ + + + + | 04/13/ | Office | Cardiology | Shawn Michael | | 2019 | Visit | | MD [address] | | | | | | [address] [place] | | | | | | [place] [address] | | | | | | [phone] | | | | | | | [...]
--- OUTSIDE RECORDS SUMMARY | ~2020-03-14 | XMS | Encounter Summary ---
Demographics + + + | Address | [address] | | | [place] [address] | + + + | Home Phone [...] Team Providers + +------+ + | Care Glassine Machine Tender Name | Role | Phone | [...] + + | 11/30/ | Office | [facility] | Yana-Lani, | Influenza A (Primary | | 2019 | Visit | MEDICINE [address] | MD Candido | Dx); COPD | | | | [facility] | [address] [place] [address] | exacerbation ([facility]); | | | | [place] [address] | [place] [address] | S/p TAVR | | | | [phone] | [phone] | (transcatheter | | | | | [...] exacerbation earlier this month and was dischar [facility] on November 24. She was treated with [...] Pain. Dispense: 120 tablet; Refill: 0 7. senior living prescription opiate use - HYDROcodone-acetaminophen (NORCO) 7.5-325 [...] Surgeon: Edwin Stoddard MD; Location: [facility] PROCEDURE UNIT HYSTERECTOMY NIRMAL AND BSO TONSILLECTOMY AND ADENOIDECTOMY UPPER GASTROINTESTINAL ENDOSCOPY N/A 06/07/2019 Procedure: EGD; Surgeon: Edwin Stoddard MD; Location: [facility] MEDICAL PROCEDURE UNIT UPPER GASTROINTESTINAL ENDOSCOPY N/A 08/20/2019 Procedure: EGD; Surgeon: John Grimes MD; Location: [facility] MEDICAL PROCEDURE UNIT CURRENT MEDICATIONS [...] 1. Parts of this documentwere created using [employer] speech recognition software. As a resu lt, [...] [place] | | | | | | [id number] | | | | | | | | +--------+ + + + + | 04/11/ | Appointment | Radiology | Shawn Michael | | | 2019 | | | MD Marcelino [address] | | | | | | [address] | | | | | | [place] [address] | | | | | | [phone] | | | | | | | | +--------+ + + + + | 04/13/ | Office | Cardiology | Shawn Michael | | | 2019 | Visit | | MD Marcelino [address] | | | | | | [address] | | | | | | [place] [address] | | | | | | [phone] | | | | | | | [...]
--- OUTSIDE RECORDS SUMMARY | ~2020-03-14 | XMS | Encounter Summary ---
Demographics + + + | Address | [address] | | | [place] [address] | + + + | Home Phone [...] Team Providers + +------+ + | Care Hot Man Name | Role | Phone | [...] [place] | | | | | | [address] | | | | | | [phone] | | | +--------+ + + + [...] [place] | | | | | | [id number] | | | | | | | | +--------+ + + + + | 04/11/ | Appointment | Radiology | Shawn Michael | | 2019 | | | MD Marcelino [address] | | | | | | [address] | | | | | | [place] [address] | | | | | | [phone] | | | | | | | | +--------+ + + + + | 04/13/ | Office | Cardiology | Julieta Michaelr | | | 2019 | Visit | | MD Marcelino [address] | | | | | | [address] [place] | | | | | | [place] [address] | | | | | | [phone] | | | | | | | [...] Plan + + | Visit Type - GENERAL HELPER - REPEAT VISIT | | Discipline - [...] + + | HH Aide Need | GENERAL HELPER services | | | 1 goal | [...] | | | ocumented | | | Senior Care, | | | | interventio | | | Physical Therapy, | | | | n | | | Home Health Aide, | | | | | | | Machine Stemmer, | | | | | | | [...]
--- OUTSIDE RECORDS SUMMARY | ~2020-03-14 | XMS | Encounter Summary ---
Demographics + + + | Address | [address] | | | [place] [address] | + + + | Home Phone [...] Team Providers + +------+ + | Care Dairy Farm Supervisor Name | Role | Phone | [...] | | | [address] [place] | [facility] [place] [address] | | | | | [place] [address] | | | | | | [phone] | | | +--------+ + + + [...] | | 2019 | Visit | | LEADER ASSEMBLER [address] | | | | | | [place] | | | | | | [address] | | | | | | | | +--------+ + + + + | 04/11/ | Appointment | Radiology | Shawn Michael | | | 2019 | | | MD [address] | | | | | | [address] [place] | | | | | | [place], [place] [address] | | | | | | [phone] | | | | | | | | +--------+ + + + + | 04/13/ | Office | Cardiology | Shawn Michael | | 2019 | Visit | | MD [address] | | | | | | [address] [place] | | | | | | [place] [address] | | | | | | [phone] | | | | | | | [...]
--- OUTSIDE RECORDS SUMMARY | ~2020-03-14 | XMS | Encounter Summary ---
Demographics + + + | Address | [address] | | | [place] [address] | + + + | Home Phone [...] Team Providers + +------+ + | Care Hose Inspector And Patcher Name | Role | Phone | + [...] | term | [address] | [place] [address] | | | | | prescription | [place], | Phone: | | | | | opiate use | [place] | [phone] | | | | | | [address] | Fax: | | | | | | Phone: | [phone] | | | | | | [phone] | | | | | | | Fax: | | | | | | | [phone] | | +--------+ + + + + [...] | Services | Generalized | Yana-Tajt | [place] | | | Required | | | i, | [address] | | | | | osteoarthrit | [address] | ST [place] | | | | | is Long | , MD [address] | [place], [place] | | | | | term | [address] | [address] | | | | | prescription | [place] [facility], | Phone: | | | | | opiate use | [place] | [phone] | | | | | COPD, | [address] | Fax: | | | | | severe (HCC) | Phone: | [phone] | | | | | Oxygen | [phone] | | | | | | dependent | Fax: | | | | | | Urinary | [phone] | | | | | | frequency [...] + | 06/16/ | Office | [facility] | Nikolay, | Generalized | | 2019 | Visit | MEDICINE [address] | MD Candido | osteoarthritis | | | | Street [place] | [address] [facility] | (Primary Dx); Long | | | | [place] [address] | [place] [address] | term prescription | | | | [phone] | [phone] | opiate use; COPD, | | | [...] CHIEF COMPLAINT Chief Complaint Patient presents with [facility] Medication Refill HPI [...] TAVR procedure a few months ago in [place]. She states that over the last year she lost about 100 lbs. due to poor diet. Her son took her to leave with him in [facility], and he states her diet is a lot better and she start ed to gain some of the weight back. She states she is on Hydrocodone counter caser, for generalized osteoarthritis. 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 MEDICAL PROCEDURE UNIT CURRENT MEDICATIONS Current Outpatient [...] UA Latest Ref Range: Clear Clear Specific [place] Latest Ref Range: 1.001 - 1.030 1.008 [...] told her son though to contact [facility] where her i nsurance with work to establish care with a pain specialist as I think she needs specialize d services for her chronic pain given all her comorbidities and the high risk of falls. - Home Health, External - AMB Referral 2. evaporative cooler installer prescription opiate use - HYDROcodone-acetaminophen (NORCO) 7.5-325 [...] | | | | | [place] [address] | | | | | | [phone] | | | | | | | | +--------+ + + + + | 04/13/ | Office | Cardiology | Shawn Michael | | | 2020 | Visit | | MD Marcelino [address] | | | | | | [address] [place] | | | | | | [place] [address] | | | | | | [phone] | | | | | | | [...] - 1.030 | [facility] | | | [place], | | | [facility] | | [...] + | [facility] | [address] | [place] | [phone] | | [facility] | | [address] | | | - LABORATORY | | [...] - 1.030 | [facility] | | | [place], | | | [facility] | | [...] | [address] | [place], [place] | [phone] | | [facility] | | [address] | | | - LABORATORY | | | | + + + + + documented in this encounter Visit Diagnoses + + | Diagnosis | + + | Generalized osteoarthritis - Primary Generalized osteoarthrosis, unspecified site | + + | evaporative cooler installer prescription opiate use | + + | [...]
--- OUTSIDE RECORDS SUMMARY | ~2020-03-14 | XMS | Encounter Summary ---
Demographics + + + | Address | [address] | | | [place] [address] | + + + | Home Phone [...] Team Providers + +------+ + | Care Workforce Manager Name | Role | Phone | [...] [place] | | | | | | [address] | | | | | | [phone] | | | +--------+ + + + [...] | | | | | [place] [address] | | | | | | [phone] | | | | | | | | +--------+ + + + + | 04/13/ | Office | Cardiology | Shawn Michael | | | 2019 | Visit | | MD Marcelino [address] | | | | | | [address] [place] | | | | | | [place] [address] | | | | | | [phone] | | | | | | | [...] | Fabrication and | yoel | | hollow tile partition erector, and sock aid. | | training | [...] | | | | the use of hollow tile partition erector, | | | | | | sock poli and | | | | | | assistive bathing | | | | | | devices to increase | | | | | | independent | | | | | | functioning. | | | | | + + +--------+--------+ + documented in this encounter"
--- OUTSIDE RECORDS SUMMARY | ~2020-03-14 | XMS | Encounter Summary ---
Demographics + + + | Address | [address] | | | [place] [address] | + + + | Home Phone [...] Team Providers + +------+ + | Care Materials Planning Manager Name | Role | Phone | [...] [place] | | | | | | [address] | | | | | | [phone] | | | +--------+ + + + [...] [place] | | | | | | [address] | | | | | | | | +--------+ + + + + | 04/11/ | Appointment | Radiology | Shawn Michael | | | 2019 | | | MD Marcelino [address] | | | | | | [address] | | | | | | [place] [address] | | | | | | [phone] | | | | | | | | +--------+ + + + + | 04/13/ | Office | Cardiology | Shawn Michael | | | 2020 | Visit | | MD Marcelino [address] | | | | | | [address] | | | | | | [place] [address] | | | | | | [phone] | | | | | | | [...]
--- OUTSIDE RECORDS SUMMARY | ~2020-03-14 | XMS | Encounter Summary ---
Demographics + + + | Address | [address] | | | [place] [address] | + + + | Home Phone [...] Team Providers + +------+ + | Care Radio Control Crane Operator Name | Role | Phone | [...] [place] | | | | | | [address] | | | | | | [phone] | | | +--------+ + + + [...] | | 2019 | Visit | | WETLANDS TECHNICIAN [address] | | | | | | [place] | | | | | | [address] | | | | | | | | +--------+ + + + + | 04/11/ | Appointment | Radiology | Shawn Michael | | | 2019 | | | MD [address] | | | | | | [address] [place] | | | | | | [place] [address] | | | | | | [phone] | | | | | | | | +--------+ + + + + | 04/13/ | Office | Cardiology | Shawn Michael | | | 2019 | Visit | | MD [address] | | | | | | [address] [place] | | | | | | [place] [address] | | | | | | [phone] | | | | | | | [...] Plan + + | Visit Type - LEARNING COORDINATOR - REPEAT VISIT | | Discipline - Home Health Aide | + + + + +--------+--------+ + + | Problem | Description | Start | Status | Goals | Interventio | | | | Date | | | ns | + + +--------+--------+ + + | HH Aide Need | LEARNING COORDINATOR services | | | 1 goal | 3 goal | | Disciplines: | needed | | Active | linked to | interventio | | Half-Way, | | 019 | | scheduled/d | [...]
--- OUTSIDE RECORDS SUMMARY | ~2020-03-14 | XMS | Encounter Summary ---
Demographics + + + | Address | [address] | | | [place] [address] | + + + | Home Phone [...] + +------+ + | Care Balance Wheel Screw Hole Tapper Name | Role | Phone | + [...] + + | 06/02/ | Telephone | [facility] | Nikolay, | Establish Care | | 2019 | | [address] | MD Candido | | | | | [facility] | [address] [place] [address] | | | | | [place] [address] | [place] [address] | | | | | [phone] | [phone] | | | | | | | [...] | | 2019 | Visit | | MAINTENANCE MAN [address] | | | | | | [place] | | | | | | [address] | | | | | | | | +--------+ + + + + | 04/11/ | Appointment | Radiology | Shawn Michael | | | 2019 | | | MD [address] | | | | | | [address] [place] | | | | | | [place] [address] | | | | | | [phone] | | | | | | | | +--------+ + + + + | 04/13/ | Office | Cardiology | Shawn Michael | | | 2019 | Visit | | MD [address] | | | | | | [address] [place] | | | | | | [place] [address] | | | | | | [phone] | | | | | | | | +--------+ + + + + documented as of this encounter Visit Diagnoses Not on filedocumented in this encounter"
--- OUTSIDE RECORDS SUMMARY | ~2020-03-14 | XMS | Encounter Summary ---
Demographics + + + | Address | [address] | | | [place] [address] | + + + | Home Phone [...] Team Providers + +------+ + | Care Piece Dyer Name | Role | Phone | [...] [facility] [place] | Jonel Lozano | METEOROLOGICAL AIDE SECONDARY EVAL | | 2020 | Visit | [place] [address] | S, TRAVEL PTA | | | | | ST [place] | [phone] | | | | | [address] | | | | | | [phone] | | | +--------+ + + + [...] [place] | | | | | | [id number] | | | | | | | | +--------+ + + + + | 04/11/ | Appointment | Radiology | Shawn Michael | | 2019 | | | MD Marcelino [address] | | | | | | [address] | | | | | | [place] [address] | | | | | | [phone] | | | | | | | | +--------+ + + + + | 04/13/ | Office | Cardiology | Maxood, Shawn | | | 2019 | Visit | | MD Marcelino [address] | | | | | | [address] | | | | | | [place] [address] | | | | | | [phone] | | | | | | | [...]
[2020-03-14] MEDS ORDERED: PREDNISONE10 MG PO (15:05)
[2020-03-14] MEDS ORDERED: ESCITALOPRAM OX10 MG PO (15:05)
[2020-03-14] MEDS ORDERED: CETIRIZINE HCL10 MG PO (15:05)
[2020-03-14] MEDS ORDERED: ATORVASTATIN CA20 MG PO (15:05)
== END 2020-03-14 16:26 | disposition home or self-care (01) ==
LOC: ED 14:48
DX: S81.812A Laceration without foreign body, left lower leg, initial encounter (principal); S81.811A Laceration without foreign body, right lower leg, initial encounter; S51.812A Laceration without foreign body of left forearm, initial encounter; R60.0 Localized edema; X58.XXXA Exposure to other specified factors, initial encounter
CPT/HCPCS: 99283